=== PATIENT | male | born 1950 | race Two or more races ===

== ENCOUNTER 2023-01-02 08:24 | Outpatient (OUT) | payer MEDICARE, SELFPAY ==
--- NOTE | 2023-01-02 09:33 | CA_ITS ---
The 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1950 Requested By: FROY Order Number: [id number] Reading MD: SIDNEY MONTAGUE Interpretive Statements Monophasic doppler waveforms PVR waveforms with normal upstroke, amplitude and dicrotic notch Right: - no significant pressure gradient between cuff - GUTIERREZ abnromal Left: - significant pressure gradient between the calf and DP cuff - normal GUTIERREZ Impression: - elevated indices (B/L thigh, B/L calf, right DP) consistent with calcified, noncompressible arterial watkins, which may underestimate the degree of arterial disease present - results unreliable due to elevated indices - decreased left TBI, which is not influenced by arterial calcification, raises suspicion for severe hemodynamic impairment of the left lower extremity at rest - normal right TBI, which is not influenced by arterial calcification, is consistent with normal arterial evaluation without hemodynamic impairment at rest. - clinical correlation advised Electronically Signed On 01-08-2023 7:15:53 EDT by SIDNEY MONTAGUE
== END 2023-01-02 08:25 | disposition home or self-care (01) ==
LOC: CARD 08:27
PROVIDERS: PCP Family Medicine
DX: I73.9 Peripheral vascular disease, unspecified (principal)
CPT/HCPCS: 93923

== ENCOUNTER 2023-03-06 19:35 | Observation (INO) | payer MEDICARE, SELFPAY ==
[2023-03-06] VITALS (13 sets, daily range): BP systolic 118–147; BP diastolic 78–86; PULSE 80–95; RESP 14–27; TEMP 36.1–36.8; O2SAT 85–99; BMI 33.2; BMI 31.2
--- NOTE | 2023-03-06 19:56 | CT_ITS ---
The [address] [address] Patient Name: ARJUN MOSCOSO JR MRN: [id number] date: 1950 Sex: M Assigned Patient Location: ER Current Patient Location: ER Accession/Order Number: [id number] Exam Date: 03/06/2023 20:02 Report Date: 03/06/2023 20:29 At the request of: PIO DALY Procedure: CT stroke head/brain wo con EXAM: CT scan of the head without contrast. Dose reduction technique used: Automated exposure control and/or adjustment of the mA and/or kV according to patient size and/or use of iterative reconstruction technique. REASON FOR EXAM: Expressive aphasia COMPARISON: None FINDINGS: No intracranial hemorrhage, mass effect, midline shift, fractures or evidence of acute ischemic infarct. No hydrocephalus. Minimal generalized cerebral and cerebellar volume loss. Minimal small vessel gliosis. Paranasal sinuses and mastoid air cells are clear. Remainder unremarkable. CT/CT stroke head/brain wo con IMPRESSION: No acute intracranial abnormalities. Electronically authenticated by: KINJAL MCNEILL Date: 03/06/2023 20:29
--- NOTE | 2023-03-06 19:56 | ECG_ITS ---
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
--- NOTE | 2023-03-06 19:58 | ED.ALLEREA1 ---
HPI - Allergic Reaction General Chief complaint: Allergic Reaction Stated complaint: Allergic Reaction Time Seen by Provider: 03/06/23 19:43 Source: patient Mode of arrival: Wheelchair History of Present Illness HPI narrative: patient is a 72-year-old male who presents to the emergency department with concern for ALLERGIC reaction. Patient's provides the majority of the history. He was recently hospitalized at [facility] for osteomyelitis that was found inn his left foot. He was started on cefepime while in the hospital and was given cefepime for home as well. He was evaluated by infectious disease while in the hospital. He states while he was receiving this cefepime in the hospital, he developed mild urticaria that did not bother him and it was recommended that he continue the antibiotic if he was able to tolerate it. He states that the hives have gotten much worse today, he took two Benadryl earlier today. Patient's states approximately one hour ago the patient had trouble with his speech. The patient states he is having trouble expressing words. He has not had any lip swelling or tongue swelling. Patient's states his face appears swollen. Patient has not noted to have any garbled speech at time of evaluation. No unilateral weakness. Related Data Home Medications Medication Instructions Recorded Confirmed atorvastatin 40 mg tablet 40 mg PO QPM 03/06/23 03/06/23 baclofen 20 mg tablet 20 mg PO TID PRN pain 03/06/23 03/06/23 celecoxib 200 mg capsule 200 mg PO BID 03/06/23 03/06/23 clopidogrel 75 mg tablet 75 mg PO DAILY 03/06/23 03/06/23 duloxetine 60 mg capsule,delayed 60 mg PO DAILY 03/06/23 03/06/23 release gabapentin 800 mg tablet 800 mg PO TID 03/06/23 03/06/23 magnesium oxide 400 mg (241.3 mg 400 mg PO DAILY 03/06/23 03/06/23 magnesium) tablet metoprolol succinate 50 mg 50 mg PO DAILY 03/06/23 03/06/23 tablet,extended release 24 hr nifedipine 30 mg tablet,extended 30 mg PO DAILY 03/06/23 03/06/23 release 24 hr Allergies Allergy/AdvReac Type Severity Reaction Status Date / Time cefepime Allergy Severe Hives Verified 03/07/23 06:53 lisinopril Allergy Severe Verified 03/06/23 19:48 metformin Allergy Severe Verified 03/06/23 19:48 Review of Systems ROS Constitutional Denies: fever or chills Eyes Denies: change in vision Cardiovascular Denies: chest pain Respiratory Denies: shortness of breath or cough Gastrointestinal Denies: nausea or vomiting Musculoskeletal Denies: back pain Integumentary/Breast Reports: rash and itching Endocrine Denies: excessive urination [facility] Medical History (Updated 03/07/23 @ 16:48 by Tejas Bryant MD) Dyslipidemia ?E78.5 - Hyperlipidemia, unspecified (ICD-10) TIA (transient ischemic attack) ?G45.9 - Transient cerebral ischemic attack, unspecified (ICD-10) Urticaria ?L50.9 - Urticaria, unspecified (ICD-10) Exam Narrative Exam Narrative: Gen.: Awake, alert, in no distress Head: Normocephalic, atraumatic ENT: Moist mucous membranes; mild edema noted of the cheeks, no lip or tongue swelling noted. Airway widely open and patent. No garbled speech. Uvula midline. No lesions noted of the mouth Respiratory: No respiratory distress, lungs clear bilaterally; no wheezing or rhonchi Cardio: Regular rate and rhythm Gastrointestinal: Abdomen is soft, nondistended and nontender to palpation Extremities: Moves extremities equally, no injuries noted Psych: Normal mood and affect Neuro: No focal neuro deficit; patient answers all questions appropriately with no slurred speech or garbled speech. He is slow to answer some questions Skin: Warm, dry, intact; urticaria noted of the volar forearms, back of the neck with no open sores, drainage or red streaking. No petechiae or purpura Constitutional Vital Signs, click to edit/add: Last Vital Signs Temp 98.3 F 03/06/23 19:40 Pulse 95 H 03/06/23 19:40 Resp 16 03/06/23 19:40 BP 118/86 03/06/23 19:40 Pulse Ox 99 03/06/23 19:40 O2 Del Method Room Air 03/06/23 19:40 Course Course Hospital Course: See Short Stay Summary (H&P) for hospital course Vital Signs Vital signs: Vital Signs Temperature 98.3 F 03/06/23 19:40 Pulse Rate 95 H 03/06/23 19:40 Respiratory Rate 16 03/06/23 19:40 Blood Pressure 118/86 03/06/23 19:40 Pulse Oximetry 99 03/06/23 19:40 Oxygen Delivery Method Room Air 03/06/23 19:40 Temperature 98.3 F 03/06/23 19:40 Pulse Rate 95 H 03/06/23 19:40 Respiratory Rate 16 03/06/23 19:40 Blood Pressure 118/86 03/06/23 19:40 Pulse Oximetry 99 03/06/23 19:40 Oxygen Delivery Method Room Air 03/06/23 19:40 MDM - Allergic Reaction MDM Narrative Medical decision making narrative: on arrival to the Emergency Room, I discussed the case with Dr. Ramírez for infectious disease where the patient was previously hospitalized. He stated that he was already aware of the patient, he has already called in meropenem to be started tomorrow for the osteomyelitis in his left foot. He recommended no further antibiotic treatment from the Emergency Room this evening with meropenem to be started tomorrow through the patient's PICC line. patient was treated with IV fluids, Benadryl, Pepcid, Solu-Medrol. He had no deterioration of his neuro status and maintains a normal neuro exam in the Emergency Room. Patient was reevaluated by attending physician, CT of the brain is unremarkable and labs show initially minimally elevated troponin, repeat troponin is normal. I discussed the case with [facility] neurology, Dr. Stephenson for neurology/stroke team. He recommended admitting the patient for observation, MRI and teleneurology consult tomorrow. no indication for emergent transfer. Patient admitted to hospitalist, patient and his feel his speech symptoms are improving in the Emergency Room. We will admit for transient ischemic attack for MRI tomorrow, patient can be treated with meropenem while hospitalized and can continue meropenem at home. Medical Records Attestation: I reviewed the patient's medical records. Lab Data Attestation: I reviewed the patient's lab results. Imaging Data CT scan - head: Attestation: I have reviewed the pertinent imaging results. Radiologist's impression: Procedure: CT stroke head/brain wo con EXAM: CT scan of the head without contrast. Dose reduction technique used: Automated exposure control and/or adjustment of the mA and/or kV according to patient size and/or use of iterative reconstruction technique. REASON FOR EXAM: Expressive aphasia COMPARISON: None FINDINGS: No intracranial hemorrhage, mass effect, midline shift, fractures or evidence of acute ischemic infarct. No hydrocephalus. Minimal generalized cerebral and cerebellar volume loss. Minimal small vessel gliosis. Paranasal sinuses and mastoid air cells are clear. Remainder unremarkable. IMPRESSION: No acute intracranial abnormalities. Electronically authenticated by: KINJAL MCNEILL Date: 03/06/2023 20:29 ECG Data Attestation: I personally reviewed and interpreted this ECG as follows: (normal sinus rhythm at a rate of eighty-nine, no acute ST elevation or ectopy. EKG reviewed by attending physician) Discharge Plan Discharge Chief Complaint: Allergic Reaction Clinical Impression: TIA (transient ischemic attack), Urticaria, Allergic reaction Patient Disposition: Admitted as Observation Time of Disposition Decision: 22:23 Condition: Good Discharge Date/Time: 03/06/23 22:55
--- NOTE | 2023-03-06 20:00 | PC.NURSE ---
Pt presents to ER for an allergic reaction to an antibiotic he is receiving after a recent amputation of 2 toes Pt states his face and lips are swollen and he has a rash to the aysha of his neck, back, and lower extremities Pt has a picc line in the right arm
[2023-03-06] MEDS: 0.9 % SODIUM CHLORIDE 1,000 ML 999 ML IV (20:21)
[2023-03-06] MEDS: METHYLPREDNISOLONE SOD SUCC PF 125 MG/2 ML VIAL IVP (20:23)
[2023-03-06] MEDS: FAMOTIDINE/PF 20 MG/2 ML VIAL IV (20:23)
[2023-03-06] MEDS: DIPHENHYDRAMINE HCL 50 MG/ML (1ML) VIAL 25 MG IV (20:23)
[2023-03-06 20:37] LABS: Basophils Absolute Auto 0.1 10^3/uL (0.0-0.1); Basophils Percent Auto 0.4 % (0.2-2.0); Eosinophils Absolute Auto 0.3 10^3/uL (0.0-0.7); Eosinophils Percent Auto 2.2 % (0.9-7.0); Hematocrit 32.6 % (42.0-54.0); Hemoglobin 10.9 g/dL (14.0-18.0); Immature Granulocytes Abs Auto 0.08 10^3/uL (0.00-0.03); Immature Granulocytes Pct Auto 0.6 % (0.0-0.5); Lymphocytes Absolute Auto 2.3 10^3/uL (1.2-3.8); Lymphocytes Percent Auto 17.4 % (20.5-60.0); Mean Corpuscular HGB Conc 33.4 g/dL (29.9-35.2); Mean Corpuscular Hemoglobin 30.4 pg (25.9-34.0); Mean Corpuscular Volume 91.1 fL (80.0-94.0); Mean Platelet Volume 10.4 fL (9.5-13.5); Monocytes Absolute Auto 1.1 10^3/uL (0.3-0.8); Monocytes Percent Auto 8.5 % (1.7-12.0); Neutrophils Absolute Auto 9.2 10^3/uL (1.4-6.5); Neutrophils Percent Auto 70.9 % (43.0-75.0); Platelet Count 400 10^3/uL (150-450); Red Blood Count 3.58 10^6/uL (4.70-6.10); Red Cell Distribution Width 13.4 % (11.0-15.0)
[2023-03-06 20:53] LABS: Alanine Aminotransferase 19 U/L (16-63); Albumin Globulin Ratio 0.7; Albumin Level 2.9 g/dL (3.4-5.0); Alkaline Phosphatase 76 U/L (46-116); Anion Gap 11.3; Aspartate Amino Transferase 17 U/L (15-37); BUN Creatinine Ratio 16.7; Bilirubin Total 0.4 mg/dL (0.2-1.0); Calcium 8.2 mg/dL (8.5-10.1); Carbon Dioxide 25.7 mmol/L (21.0-32.0); Chloride 101 mmol/L (98-107); Estimated GFR (African America 47 (>=60); Estimated GFR (Non-African Ame 39 (>=60); Globulin 4.1 g/dL; Glucose 147 mg/dL (74-106); Sodium 134 mmol/L (136-145)
[2023-03-06 20:56] LABS: Troponin I High Sensitivity 78.7 pg/mL (4.0-76.1)
[2023-03-06 21:04] LABS: Prothrombin Time 10.6 sec (9.0-11.6)
[2023-03-06 21:50] LABS: Troponin I High Sensitivity 72.1 pg/mL (4.0-76.1)
[2023-03-06] MEDS: HEPARIN SODIUM (PORCINE) PF LOCK FLUSH 500 UNIT/5 ML SYRINGE IV (22:40)
[2023-03-07] VITALS (10 sets, daily range): BP systolic 148–164; BP diastolic 72–94; PULSE 76–98; RESP 12–20; TEMP 36.3–36.8; O2SAT 95–99; BMI 31.2
--- NOTE | 2023-03-07 00:10 | MR_ITS ---
The [place] [id number] Patient Name: ARJUN MOSCOSO JR MRN: [id number] date: 1950 Sex: M Assigned Patient Location: ICU Current Patient Location: ICU Accession/Order Number: [id number] Exam Date: 03/07/2023 07:40 Report Date: 03/07/2023 13:39 At the request of: FLORENTIN CHEN Procedure: MR head/brain wo con MRI BRAIN WITHOUT CONTRAST, 03/07/2003. HISTORY: Difficulty swallowing. Facial swelling. Possible stroke. Aphasia. COMPARISON: CT head, 03/06/2023. TECHNIQUE: Multiplanar, multisequence MRI imaging of the brain without contrast. FINDINGS: Paranasal sinuses are clear. Mastoid air cells clear. Nasopharynx normal. Manager Air spaces are normal. Extracranial soft tissue structures are unremarkable. Mild brain atrophy. No hydrocephalus. No subdural fluid collection. No mass effect. No shift of midline structures. Internal auditory canals and cerebellopontine angle cisternal spaces normal. Pituitary gland is normal in size. Mild chronic microvascular ischemic changes in the cerebral white matter. No diffusion restriction in the brain. No acute ischemic infarction. Small dural based mass along the falx between the frontal lobes is most consistent with a meningioma. This measures 1.0 x 1.8 cm in cross-section. This has hyperintense signal on FLAIR and some hyperintense signal on diffusion. No mass effect on the brain. No edema in the brain. No other masses. No hemorrhagic lesions. MR/MR head/brain wo con IMPRESSION: 1. No acute infarction. 2. Small mass along the falx in the midline between the frontal lobes measuring 1.0 x 1.8 cm is most likely a meningioma. There is no mass effect on the brain or vasogenic edema in the brain. 3. Mild brain atrophy and chronic microvascular ischemic changes. No hydrocephalus. Electronically authenticated by: DORCAS WELLINGTON Date: 03/07/2023 13:39
--- NOTE | 2023-03-07 00:16 | CA_ITS ---
Patient Name Site Name ARJUN MOSCOSO JR The [facility] Account No Medical Record Number Age Sex Date Time [id number] [facility]:[id number] M 03/07/2023 10:17 At the Request Of Royal Sister ECHOCARDIOGRAM REPORT PROCEDURE: CA ECHO DOPPLER COMPLETE INDICATIONS: TIA symptoms, hypertension, diabetes, acute kidney disease COMPARISON: None. DESCRIPTION: COMPLETE ECHOCARDIOGRAM Real-time transthoracic echocardiography with 2D, M-mode, spectral and color flow Doppler performed. QUALITY: Technical quality was good. LEFT VENTRICLE: Normal chamber size. Mild concentric left ventricular hypertrophy. Normal systolic function. LV EF: Normal left ventricular ejection fraction, (>55%). DIASTOLIC: Grade I diastolic dysfunction. ATRIAL SEPTUM: Agitated saline contrast does not reveal an intra-cardiac shunt. LEFT ATRIUM: Mild dilatation. RIGHT ATRIUM: Normal chamber size. RIGHT VENTRICLE: Normal chamber size. Normal right ventricular systolic function. TRICUSPID VALVE: Normal mobility and thickness. No stenosis with no regurgitation. MITRAL VALVE: Normal mobility and thickness. No evidence of mitral valve stenosis. Mild mitral annular calcification. No mitral regurgitation. AORTIC VALVE: Normal trileaflet appearance. Thickened aortic valve. Normal leaflet mobility. No evidence of aortic valve stenosis. Trivial aortic regurgitation. AORTIC ROOT: Normal diameter and appearance. PULMONIC VALVE: Not well visualized. No stenosis. No regurgitation. PERICARDIUM: No evidence of pericardial effusion. IVC: Collapses with inspirations. PLEURA: CONCLUSION: 1. Mild concentric left ventricular hypertrophy. Normal left ventricular systolic function. LVEF is 55 to 60%. 2. Normal right ventricular size and systolic function. 3. Mildly dilated left atrium. 4. No significant valvular dysfunction. 5. Agitated saline injection does not reveal an intracardiac shunt. Adult Echocardiography Procedure Report Left Ventricle LVEDD (3.7 - 5.6 cm): 5.60 cm LVESD (2.2 - 4.0 cm): 4.25 cm LVIVS thickness (0.6 - 1.2 cm): 1.06 cm LVPW thickness (0.5 - 1.0 cm): 1.26 cm e': 0.08 m/s E - e': 6.19 LVOT Max Gradient: 3.19 mm[Hg] LVOT Area (cm2): 0.89 m/s Peak Velocity (LVOT): 0.89 m/s LVOT Diameter 2.36 cm Left Atrium LA Volume Index (2D A2C): 42.90 ml/m2 Left Atrium Systolic Dimension: 3.83 cm Mitral Valve MV E to A Ratio: 0.55 Mitral Valve A-Wave Peak Velocity: 0.90 m/s Mitral Valve E-Wave Peak Velocity: 0.50 m/s Right Ventricle Aorta AO Root Diam: 3.62 cm Aortic Valve AoV Area (Peak David): 2.80 cm2, 2.74 cm2 Peak Velocity(Antegrade Flow): 1.43 m/s, 1.36 m/s Peak Gradient(Antegrade Flow): 8.15 mm[Hg], 7.37 mm[Hg] Mean Velocity(Antegrade Flow): 0.99 m/s, 0.96 m/s Mean Gradient(Antegrade Flow): 4.42 mm[Hg], 4.22 mm[Hg] Velocity Time Integral: 32.81 cm, 32.08 cm Tricuspid Valve Pulmonic Valve Peak Velocity: 0.98 m/s Peak Gradient: 3.75 mm[Hg], 3.86 mm[Hg] Right Atrium Right Atrium Systolic Pressure: 33.51 ml, 33.51 ml Dictated by: Alec Blackman M.D. on 03/07/2023 at 16:45 Approved by: Alec Blackman M.D. on 03/07/2023 at 16:50
--- NOTE | 2023-03-07 00:23 | P.PN_ITS ---
Progress Note: Subjective Subjective Interval history: CC: Slurred speech HPI: This is a very pleasant 72 years old male who presents with above complaints. Patient is accompanied by his . According to her patient recently started on IV cefepime for treatment of diabetic foot infection. While on antibiotics patient developed urticaria type of rash. He was advised to take Benadryl and try to see if rash disappeared. In spite of Benadryl patient's condition deteriorated and he developed some slurred speech and according to the also some swelling of the face. On evaluation in the emergency room stroke code was activated. Patient was evaluated by neurologist who recommended admission for further neurological work-up. Meantime patient received treatment for allergic reaction including Benadryl, Pepcid, Solu-Medrol and doing better. Exam Narrative Exam Narrative: ROS: 1.General: no fever, chills, not in distress 2.HEENT: no AVELAR, no blurry vision, no swallow problems, no nasal congestion, no sore throat 3.Pulmonary: no cough, SOB, wheezes 4.CVS: no CP, no palpitations, no LLOYD, no SOB, no intermittent claudication 5.GI: no nausea, vomiting or diarrhea, no abdominal pain, no constipation, no hematemesis or hematochezia 6.: no renal colic, no hematuria, urinary frequency or urgency 7.Extremities: no edema 8.Neurological: See above 9.Musculosceletal: no joint pains, no joint swelling, no back pain 10.Dermatological: no skin rashes, no lesions, no pruritus 11.Hematological: no bleeding, no hx/o clots 12.Endocrinological: no heat/cold intolerance, no hx/o diabetes 13.Psychiatric: no suicidal or homicidal thoughts Physical Exam: Not in distress, pleasant, lucid, cooperative, morbidly obese Head - atraumatic, eyes - pupils equal, round, reactive to light, extra ocular movement intact, MMM Neck - supple, thyroid not enlarged, LN not palpated Lungs - clear to auscultation, no dullness on percussion CVS - heart sounds S1, S2, no additional murmurs gallop, regular rate and rhythm Gastrointestinal?abdomen is soft, non-tender, non-distended, no organomegaly, positive bowel sounds Extremities no clubbing, cyanosis or edema Neurological?cranial nerve II?XII grossly intact, no meningeal signs, no cerebellar signs, no sensory deficit Musculoskeletal - joints, no effusions, ROM preserved Dermatological - the skin dry, warm, wound VAC in place in the lower extremity Psychiatric?patient is AAO X3, patient has normal affect Constitutional Vital Signs, click to edit/add: Last Vital Signs Temp 98.0 F 03/06/23 23:10 Pulse 80 03/06/23 23:10 Resp 16 03/06/23 23:10 BP 147/78 H 03/06/23 23:10 Pulse Ox 99 03/06/23 23:10 O2 Del Method Room Air 03/06/23 23:10 Progress Note: Objective Labs Labs: Short CBC 03/06/23 Range/Units 20:15 WBC 13.0 H (4.0-11.0) 10^3/uL Hgb 10.9 L (14.0-18.0) g/dL Hct 32.6 L (42.0-54.0) % Plt Count 400 (150-450) 10^3/uL BMP 03/06/23 20:15 Sodium 134 L Potassium 4.0 Chloride 101 Carbon Dioxide 25.7 BUN 29.0 H Creatinine 1.74 H Glucose 147 H Calcium 8.2 L Liver Function 03/06/23 Range/Units 20:15 Total Bilirubin 0.4 (0.2-1.0) mg/dL AST 17 (15-37) U/L ALT 19 (16-63) U/L Alkaline Phosphatase 76 (46-116) U/L Albumin 2.9 L (3.4-5.0) g/dL Progress Note: A&P Assessment and Plan (1) TIA (transient ischemic attack): Assessment and Plan: CVA - patient admitted with acute neurological deficit - As per evaluation in ER patient did not qualify for a tPa treatment - Admit to telemetry - Frequent neuro-checks - Will obtain MRI of the brain and MRA of the Head and Neck - Will obtain an ECHO with bubbles - F/U with Neurologist for further recommendations Secondary prevention ? will make sure patient is on Full dose of EC ASA and at least moderate potency dose of Atorvastatin unless contraindicated Tertiary prevention ? fall/aspiration precautions are in place - DVT prophylaxis (2) Urticaria: Assessment and Plan: Doing better after administration of medications in the emergency room. Phone consultation obtained with infectious disease specialist who recommended him switch to cefepime or meropenem Continue with wound VAC (3) Diabetes: Assessment and Plan: DM- continue with ADA diet - hold off oral hypoglycemic agents while in the hospital to avoid hypoglycemic episodes - frequent accuchecks (TID AC + HS) - will provide coverage with long acting insulin as well as short acting insulin with meals - adjust as needed - hypoglycemia protocol in place (4) Diabetic foot: Assessment and Plan: See above (5) Hypertension: Assessment and Plan: Permissive hypertension going to be allowed. Very fine continue home medications (6) Dyslipidemia: Assessment and Plan: Patient started on moderate potency dose of atorvastatin. Follow-up results of the lipid profile Plan END: As the provider for the telehealth service, I attest that I introduced myself to the patient, provided my credentials, disclosed by location and determined that based on a review of the patient's chart and discussion with members of the patient's treatment team, telemedicine via real-time, 2 way, and interactive audio and video platform is an appropriate and effective means of providing the service. ?The patient and I mutually agree this visit is appropriate for telemedicine. ?The virtual encounter was taken place from? [place], [place]. ?The encounter took approximately 35 minutes. ?The nurse was present during the entire time and I was able to move the stethoscope in appropriate directions. ?The patient was evaluated at the Hospital ? Portions of this note may be dictated using [employer] voice recognition software. Variances in spelling and vocabulary are possible and unintentional. Not all err ors may be caught and/or corrected. Please notify the author if any discrepancies are noted and/or if the meaning of any statement is unclear.? ? Patient verbally consented for treatment via video visit with patient currently located at the [facility] and provider located in [place]. Telemedicine Attestation Telemedicine Attestation I conducted this encounter from [[place]] via secure live, [id number] video conference with the patient, located at [facility] with [TIA]. Prior to the interview, the risks and benefits of telemedicine were discussed with the patient and verbal consent was obtained.
[2023-03-07] MEDS: ASPIRIN 81 MG TAB.CHEW PO ×2 (02:46→09:56)
--- NOTE | 2023-03-07 03:29 | PC.NURSE ---
Patient has dressing to left foot S/P toe amputation and has Wound Vac dressing in place. Unable to fully detect patient's level of strength in this extremity due to size and location on dressing.
[2023-03-07 05:08] LABS: Basophils Percent Auto 0.1 % (0.2-2.0); Hematocrit 31.3 % (42.0-54.0); Hemoglobin 10.3 g/dL (14.0-18.0); Immature Granulocytes Abs Auto 0.08 10^3/uL (0.00-0.03); Immature Granulocytes Pct Auto 0.8 % (0.0-0.5); Lymphocytes Absolute Auto 0.8 10^3/uL (1.2-3.8); Lymphocytes Percent Auto 8.5 % (20.5-60.0); Mean Corpuscular HGB Conc 32.9 g/dL (29.9-35.2); Mean Corpuscular Hemoglobin 29.6 pg (25.9-34.0); Mean Corpuscular Volume 89.9 fL (80.0-94.0); Mean Platelet Volume 10.5 fL (9.5-13.5); Monocytes Absolute Auto 0.1 10^3/uL (0.3-0.8); Monocytes Percent Auto 0.7 % (1.7-12.0); Neutrophils Absolute Auto 8.5 10^3/uL (1.4-6.5); Neutrophils Percent Auto 89.9 % (43.0-75.0); Platelet Count 369 10^3/uL (150-450); Red Blood Count 3.48 10^6/uL (4.70-6.10); Red Cell Distribution Width 13.2 % (11.0-15.0); White Blood Count 9.5 10^3/uL (4.0-11.0)
[2023-03-07 05:29] LABS: Anion Gap 10.9; BUN Creatinine Ratio 18.1; Calcium 7.9 mg/dL (8.5-10.1); Carbon Dioxide 24.5 mmol/L (21.0-32.0); Chloride 102 mmol/L (98-107); Estimated GFR (African America 56 (>=60); Estimated GFR (Non-African Ame 46 (>=60); Glucose 263 mg/dL (74-106); Potassium 4.4 mmol/L (3.5-5.1); Sodium 133 mmol/L (136-145)
[2023-03-07] MEDS: GABAPENTIN 400 MG CAPSULE 800 MG PO ×2 (06:30→15:30)
--- NOTE | 2023-03-07 07:40 | MR_ITS ---
The [address] [address] Patient Name: ARJUN MOSCOSO JR MRN: [id number] date: 1950 Sex: M Assigned Patient Location: ICU Current Patient Location: ICU Accession/Order Number: [id number] Exam Date: 03/07/2023 07:40 Report Date: 03/07/2023 13:39 At the request of: FLORENTIN CHEN Procedure: MR angio neck wo/w con MRA neck with and without contrast, 03/07/2023. HISTORY: Expressive aphasia. COMPARISON: None. TECHNIQUE: Postcontrast 3-D axial MRA images obtained through the neck. Axial [id number] MRA images obtained. Multiple reconstructed MIP images obtained. FINDINGS: There is some motion artifact. Common carotid arteries are normal in caliber. There is a 50% stenosis in the proximal left ICA. There is a 50% stenosis in the proximal right ICA. Vertebral arteries are patent. MR/MR angio neck wo/w con IMPRESSION: 1. There is 50% stenosis in the proximal internal carotid arteries bilaterally. The mid and distal segments of the internal carotid arteries are normal in caliber. 2. Vertebral arteries are patent. Electronically authenticated by: DORCAS WELLINGTON Date: 03/07/2023 13:39
--- NOTE | 2023-03-07 08:22 | CM.NOTE ---
Advanced Directive booklet given to family, passed on to SW and will f/u with pt if any questions.
[2023-03-07 08:51] LABS: Cholesterol 102 mg/dL (<=200); HDL Cholesterol 34 mg/dL (40-60); Triglycerides 90 mg/dL (<=150)
--- NOTE | 2023-03-07 09:47 | SWNOTE1 ---
SW received message from case management and pt is current with [facility].
[2023-03-07] MEDS: INSULIN ASPART 300 UNIT/3 ML PEN SUBQ ×2 (09:53→11:49)
[2023-03-07] MEDS: METOPROLOL SUCCINATE 50 MG TAB.ER.24H PO (09:57)
[2023-03-07] MEDS: CLOPIDOGREL BISULFATE 75 MG TABLET PO (09:57)
[2023-03-07] MEDS: MAGNESIUM OXIDE 400 MG TABLET PO (09:57)
[2023-03-07] MEDS: DULOXETINE HCL 60 MG CAPSULE.DR PO (09:57)
[2023-03-07] MEDS: NIFEdipine 30 MG TAB.ER.24 PO (09:57)
[2023-03-07 10:01] LABS: Glucometer 274 mg/dL (74-106)
--- NOTE | 2023-03-07 10:42 | P.HP_ITS ---
Patient seen and examined, agree with assessment below. Admitted after allergic reaction to antibiotic and facial swelling. Developed speech abnormality and concerned of CVA. Admitted for work up. MRI brain negative for stroke and showed meningioma. Allergic reaction resolved with medication. Tele-neurology requested outpatient MRI with and without contrast. ID had recommended m eropenem and given invanz and tolerated. Wound vac changed in hospital. Discharged home and f/u with ID and podiatry. Diagnosis: 1. Allergic reaction due to antibiotic 2. Speech abnormality 3. SONYA 4. Osteomyelitis left foot 5. Left diabetic foot ulcer 6. DM2 with hyperglycemia 7. HTN 8. DM2 with polyneuropathy 9. PVD H&P: HPI History of Present Illness Chief complaint: Allergic Reaction/Expressive aphasia Narrative: Date/Time of exam: 03/07/23 1000 SHORT STAY SUMMARY This is a 72-year-old male patient with a complicated past medical history as outlined below including recent admission at [facility] due to osteomyelitis of the left foot and status post fifth metatarsal amputation during that stay. The patient has been receiving IV cefepime as an outpatient and a wound VAC has been placed on the left foot. The patient experienced a mild rash from the cefepime but he was instructed to use Benadryl to continue taking the medication unless his response worsened. Yesterday he began developing severe hives body wide including to the face and mouth. His infectio us disease provider discontinued the cefepime and was switching him to Merrem, however the patient's family began to notice that his speech became slurred, delayed, and at times nonsensical. They also noted that he was zoning out and not following conversations appropriately. They presented to the ED for further work-up as they were concerned for stroke. Work-up in the ED was negative for acute hemorrhagic CVA per CT of the brain. The patient was treated for his drug reaction with IV steroids with significant improvement in his symptoms. He was also noted to have SONYA on chemistry labs. Telestroke was consulted in the ED and they recommended observation admission for further neuro work-up. He was excepted by the hospitalist service in observation for these complaints. At the time of my exam the patient is resting comfortably in bed visiting with family. He reports that his allergic reaction symptoms have completely resolved as have his suspected stroke symptoms. He has no evidence of dysarthria or expressive aphasia and no focal deficits noted on exam. We will initiate carbapenem medication per the outpatient ID provider recommendations and monitor the patient for adverse reactions. An MRI of the brain and 2D echo will be obtained for further eval of possible CVA. We will start IV fluids for his SONYA, but suspect this may reflect a drug reaction to the cefepime as well. If the remaining neuro work-up is negative the patient will likely be discharged later today as his symptoms have all resolved. ADDENDUM 1500: An MRI of the brain revealed a small mass along the falx in the midline between the frontal lobes measuring 1 x 1.8 cm and most likely represents a meningioma. No mass effect or vasogenic edema in the brain was noted. There was no evidence of acute infarction. An MRA of the Neck revealed 50% stenosis in the proximal internal carotid arteries bilaterally with normal mid and distal segments of the internal carotid arteries. Vertebral arteries were unremarkable. A 2D echo was obtained but cardiology interpretation is still pending. A follow-up consult with telestroke was performed at the bedside. Tele-Stroke did not have any further recommendations but they would like the pt to obtain an outpatient follow up MRI next week to ensure that the suspected meningioma remains unchanged. The pt tolerated IVPB carbapenem well. As his symptoms remain completely resolved he is being discharged home in stable condition. He will follow up with his PCP within 1 week for further monitoring of his renal function. He will obtain an MRI of the brain on 03/12/23 w/ results to be interpreted by the tele-stroke providers. Review of Systems ROS Status of ROS 10 or more systems reviewed and unremarkable except as noted in history and below [facility] Medical History (Updated 03/07/23 @ 10:00 by Tejas Bryant MD) Dyslipidemia ?E78.5 - Hyperlipidemia, unspecified (ICD-10) Hypertension ?I10 - Essential (primary) hypertension (ICD-10) Osteomyelitis of left foot ?M86.9 - Osteomyelitis, unspecified (ICD-10) Type 2 diabetes mellitus with diabetic polyneuropathy ?E11.42 - Type 2 diabetes mellitus with diabetic polyneuropathy (ICD-10) Type 2 diabetes mellitus with hyperglycemia ?E11.65 - Type 2 diabetes mellitus with hyperglycemia (ICD-10) Ulcer of left foot due to type 2 diabetes mellitus ?E11.621 - Type 2 diabetes mellitus with foot ulcer (ICD-10) ?L97.529 - Non-pressure chronic ulcer of other part of left foot with unspecified severity (ICD-10) Urticaria ?L50.9 - Urticaria, unspecified (ICD-10) Meds Home Medications and Allergies Home Medications Medication Instructions Recorded Confirmed Type atorvastatin 40 mg tablet 40 mg PO QPM 03/06/23 03/06/23 History baclofen 20 mg tablet 20 mg PO TID PRN pain 03/06/23 03/06/23 History celecoxib 200 mg capsule 200 mg PO BID 03/06/23 03/06/23 History clopidogrel 75 mg tablet 75 mg PO DAILY 03/06/23 03/06/23 History duloxetine 60 mg capsule,delayed 60 mg PO DAILY 03/06/23 03/06/23 History release gabapentin 800 mg tablet 800 mg PO TID 03/06/23 03/06/23 History magnesium oxide 400 mg (241.3 mg 400 mg PO DAILY 03/06/23 03/06/23 History magnesium) tablet metoprolol succinate 50 mg 50 mg PO DAILY 03/06/23 03/06/23 History tablet,extended release 24 hr nifedipine 30 mg tablet,extended 30 mg PO DAILY 03/06/23 03/06/23 History release 24 hr Allergies Allergy/AdvReac Type Severity Reaction Status Date / Time cefepime Allergy Severe Hives Verified 03/07/23 06:53 lisinopril Allergy Severe Verified 03/06/23 19:48 metformin Allergy Severe Verified 03/06/23 19:48 Exam Constitutional Vital Signs, click to edit/add: Last Vital Signs Temp 98.2 F 03/07/23 07:00 Pulse 87 03/07/23 08:00 Resp 16 03/07/23 08:00 BP 163/94 H 03/07/23 09:57 Pulse Ox 96 03/07/23 07:00 O2 Del Method Room Air 03/07/23 07:00 Common normals: no apparent distress, oriented x3, alert and well nourished General appearance: cooperative Orientation/consciousness: Yes awake [facility] Common normals: normocephalic, head/scalp atraumatic, hearing grossly normal bilaterally, external ears normal, external nose normal and moist oral mucous membranes Head and scalp: normocephalic and atraumatic Face and sinus: normal facial exam Nose: external nose normal External ear: external ears normal Eye Common normals: PERRL, EOMs intact bilaterally, conjunctivae normal and no scleral icterus General eye: normal appearance of both eyes Alignment: alignment normal Eyelid: eyelids normal Conjunctiva: conjunctiva(e) normal Pupil: PERRL Neck & C-Spine Common normals: full ROM, supple and no JVD Chest Common normals: inspection of chest normal Chest: symmetrical chest wall rise Respiratory Common normals: normal respiratory effort, no retractions, no use of accessory muscles and clear to auscultation bilaterally Effort & inspection: able to speak in complete sentences Auscultation: clear to auscultation bilaterally Cardio Common normals: no JVD, regular rate, regular rhythm, S1 normal heart sound, S2 normal heart sound, no gallops, no clicks, no murmurs and no rub Rate: regular rate Rhythm: regular rhythm Heart sounds: S1 normal and S2 normal Peripheral pulses: other Other: L foot dorsalis pedis pulse 1+, all other extremities 2+ GI Common normals: Normal to inspection, nondistended, normoactive bowel sounds present, soft to palpation, non-tender, no hepatosplenomegaly, no masses and no bruits Palpation: soft and no hepatosplenomegaly Bladder/kidney exam: bladder normal to palpation Extremity Common normals: normal capillary refill and no pedal edema General: normal exam except as noted; no clubbing and no cyanosis Left lower extremity: foot and digits Left foot and digits: other (S/p 5th metatarsal amp 1 week ago. Wound vac in place w/ compression wrap ) Neuro Cookie Coma Scale: GCS not evaluated Common normals: oriented x3, CN's II-XII intact bilaterally, moves all extremities, no focal motor deficits and no sensory deficits noted Sensorium/orientation: awake and alert Speech: speech normal Motor exam: strength 5/5 throughout Psych Common normals: mental status grossly normal, thought process normal, affect normal and activity/motor behavior normal Thought process: normal thought process Results Labs Labs: Short CBC 03/06/23 03/07/23 Range/Units 20:15 04:47 WBC 13.0 H 9.5 (4.0-11.0) 10^3/uL Hgb 10.9 L 10.3 L (14.0-18.0) g/dL Hct 32.6 L 31.3 L (42.0-54.0) % Plt Count 400 369 (150-450) 10^3/uL BMP 03/06/23 03/07/23 20:15 04:47 Sodium 134 L 133 L Potassium 4.0 4.4 Chloride 101 102 Carbon Dioxide 25.7 24.5 BUN 29.0 H 27.0 H Creatinine 1.74 H 1.49 H Glucose 147 H 263 H Calcium 8.2 L 7.9 L Liver Function 03/06/23 Range/Units 20:15 Total Bilirubin 0.4 (0.2-1.0) mg/dL AST 17 (15-37) U/L ALT 19 (16-63) U/L Alkaline Phosphatase 76 (46-116) U/L Albumin 2.9 L (3.4-5.0) g/dL Pulse Oximetry Attestation: I have reviewed the pertinent pulse oximetry results. Assessment and Plan Assessment and Plan (1) TIA (transient ischemic attack): Assessment and Plan: ACUTE * Adm obs * Symptoms have completely resolved * Neuro work up * MRI brain * MRA head/neck * 2D Echo * c/s tele- stroke service - we appreciate their assistance with this pt's care * Pt already on DAPT and statin - continue (2) Allergic reaction due to antibacterial drug: Assessment and Plan: ACUTE * Cefipime d/c'd by ID * Merrem prescribed by ID per home health * Ertapenem will be given during hospital stay per formulary availability * Monitor for adverse response * Hives completely resolved after steroids and benadryl in the ED (3) SONYA (acute kidney injury): Assessment and Plan: ACUTE * Unclear etiology but we suspect adverse effect of IVPB cefepime * LR at 125/hr to flush kidneys * Medications reviewed for renal toxicity * Follow up closely w/ PCP for monitoring (4) Osteomyelitis of left foot: Assessment and Plan: CHRONIC * s/p 5th metatarsal amputation and wound vac placement * defer to OP ID management via home health as previously ordered (5) Type 2 diabetes mellitus with hyperglycemia: Assessment and Plan: CHRONIC * Continue home antiglycemic medications (6) Hypertension: Assessment and Plan: CHRONIC * Continue home Toprol XL & nifedipine (7) Dyslipidemia: Assessment and Plan: CHRONIC * Continue home statin
--- NOTE | 2023-03-07 11:19 | CM.NOTE ---
Rounds made with Dr. Bryant, consulted wound for vac change today prior to discharge. MRI completed awaiting cardiac echo to be completed.
--- NOTE | 2023-03-07 11:34 | SWNOTE1 ---
MILES spoke with [facility] and they were asking about antibiotic. MILES let home health speak with case management to update them in regards to antibiotic. Our wound are did change his wound vac. SW to send over discharge information.
[2023-03-07] MEDS: ERTAPENEM SODIUM 1 GM in 0.9 % SODIUM CHLORIDE 50 ML IV (11:46)
--- NOTE | 2023-03-07 11:50 | W.PM.WC ---
Wound Consult Note Assessment and Plan (1) TIA (transient ischemic attack): (2) Urticaria: (3) Diabetes: (4) Diabetic foot: Reason for Consult: Left foot diabetic ulcers Assessment and Plan: Patient seen today for assistance with wound VAC dressing change and treatment of diabetic ulcers to left foot. Patient reports he had left 5th partial ray resection with Dr. Chapman about 1 weeks ago. He was on IV antibiotics and developed a rash. Patient has stable eschar to left hallux, left distal great toe and left second dorsal toe as well. These areas were painted with betadine and covered with gauze/kerlix. Open wound to left lateral foot with 90% granular tissue, intact sutures noted to distally towards base of 4th toe however this area is draining and slightly macerated. Patient did just return from MRI and the VAC was without suction for about 1 hour, so this could be the reason it is slightly macerated. Overall measurements for the left lateral foot are 6.8cmx4.8cmx0.2cm. No structures noted, however, the bone is very close but does have some tissue covering. Adaptic was placed over sutures, then black foam over top adaptic and to wound bed. Seal achieved and kept at 125mmHg suction. Betadine and gauze over stable eschar and ABD pad over VAC dressing. Loose FAUSTO wrap over top. Will check on patient if still inpatient on Friday. Patient states [facility] is managing his VAC at home. Updated Dr. Bryant on patient's POC. (5) Hypertension: (6) Dyslipidemia: Plan See plan in diabetic foot. Call [phone] with any questions or concerns.
[2023-03-07 12:15] LABS: Glucometer 191 mg/dL (74-106)
--- NOTE | 2023-03-07 14:49 | CM.NOTE ---
Jessika from pharmacy called for update regarding medication at discharge. Dr. Ramírez had ordered Meropenem for HH to administer. Will call her back after pt receives antibiotic dose and regarding plan of discharge.
--- NOTE | 2023-03-07 14:53 | CM.NOTE ---
Called Jessika back to let her know, pt will continue on home Meropenem. Jessika states medication has been delivered to pt's home and we will also update [facility].
--- NOTE | 2023-03-07 14:55 | CM.NOTE ---
Medicare Outpatient Observation Notice discussed with pt, pt verbalizes understanding and signs paper. Original given to pt and copy placed on pt's chart.
--- NOTE | 2023-03-07 15:16 | P.DS_ITS ---
Patient seen and examined, agree with assessment below. Admitted after allergic reaction to antibiotic and facial swelling. Developed speech abnormality and concerned of CVA. Admitted for work up. MRI brain negative for stroke and showed meningioma. Allergic reaction resolved with medication. Tele-neurology requested outpatient MRI with and without contrast. ID had recommended m eropenem and given invanz and tolerated. Wound vac changed in hospital. Discharged home and f/u with ID and podiatry. Diagnosis: 1. Allergic reaction due to antibiotic 2. Speech abnormality 3. SONYA 4. Osteomyelitis left foot 5. Left diabetic foot ulcer 6. DM2 with hyperglycemia 7. HTN 8. DM2 with polyneuropathy 9. PVD DS: Providers Provider Date of admission: 03/06/23 23:01 Primary care physician: Tejas Bryant MD Admitting clinician: Carlie Marcus Attending physician on admission: Tejas Bryant Consults: 03/06/23 Consult to Dietitian Routine Reason For Exam: weight loss Reason for consultation: loss of appetite and weight loss 03/07/23 08:37 Consult to TeleNeurology Routine Reason for consultation: TIA Has provider been notified: Yes 03/07/23 09:57 Consult to Wound Care Routine Consulting Provider: Octavio Baxter Reason for consultation: Wounc vac Attending physician on discharge: Tejas Bryant Discharging clinician: Carlie Marcus Anticipated date of discharge: 03/07/23 DS: Diagnosis Discharge Diagnosis (1) TIA (transient ischemic attack): (2) Allergic reaction due to antibacterial drug: (3) SONYA (acute kidney injury): (4) Osteomyelitis of left foot: (5) Type 2 diabetes mellitus with hyperglycemia: (6) Hypertension: (7) Dyslipidemia: DS: Summary Hospital Course Hospital Course: See Short Stay Summary (H&P) for hospital course Status at Discharge Overall status at discharge: patient is back to baseline Time Spent with Patient Time attestation: Total time spent providing and/or coordinating discharge services: Time spent: greater than 30 minutes Exam Narrative Exam Narrative: See Short Stay Summary (H&P) for physical exam Constitutional Vital Signs, click to edit/add: Last Vital Signs Temp 97.4 F L 03/07/23 15:00 Pulse 89 03/07/23 15:00 Resp 15 03/07/23 15:00 BP 163/78 H 03/07/23 15:00 Pulse Ox 95 03/07/23 15:00 O2 Del Method Room Air 03/07/23 15:00 DS: Data Data Completed and Pending Completed studies during hospitalization: CT Brain MRI Brain MRA Neck Labs on day of discharge: Labs from last 24 hours 03/07/23 03/07/23 03/07/23 11:47 09:56 04:47 WBC 9.5 RBC 3.48 L Hgb 10.3 L Hct 31.3 L MCV 89.9 MCH 29.6 MCHC 32.9 RDW 13.2 Plt Count 369 MPV 10.5 Neut % (Auto) 89.9 H Lymph % (Auto) 8.5 L [place] % (Auto) 0.7 L Eos % (Auto) 0.0 L Baso % (Auto) 0.1 L Neut # (Auto) 8.5 H Lymph # (Auto) 0.8 L [place] # (Auto) 0.1 L Eos # (Auto) 0.0 Baso # (Auto) 0.0 Abs Immat Gran (auto) 0.08 H Imm/Tot Granulo (auto) 0.8 H PT INR Sodium 133 L Potassium 4.4 Chloride 102 Carbon Dioxide 24.5 Anion Gap 10.9 BUN 27.0 H Creatinine 1.49 H Est GFR ( Amer) 56 L Est GFR (Non-Af Amer) 46 L BUN/Creatinine Ratio 18.1 Glucose 263 H Calcium 7.9 L Total Bilirubin AST ALT Alkaline Phosphatase Troponin I High Sens Total Protein Albumin Globulin Albumin/Globulin Ratio Triglycerides 90 Cholesterol 102 LDL Cholesterol, Calc 50.0 VLDL Cholesterol 18.0 HDL Cholesterol 34 L Cholesterol/HDL Ratio 3.0 POC Glucose 191 H 274 H 03/06/23 03/06/23 21:13 20:15 WBC 13.0 H RBC 3.58 L Hgb 10.9 L Hct 32.6 L MCV 91.1 MCH 30.4 MCHC 33.4 RDW 13.4 Plt Count 400 MPV 10.4 Neut % (Auto) 70.9 Lymph % (Auto) 17.4 L [place] % (Auto) 8.5 Eos % (Auto) 2.2 Baso % (Auto) 0.4 Neut # (Auto) 9.2 H Lymph # (Auto) 2.3 [place] # (Auto) 1.1 H Eos # (Auto) 0.3 Baso # (Auto) 0.1 Abs Immat Gran (auto) 0.08 H Imm/Tot Granulo (auto) 0.6 H PT 10.6 INR 1.00 Sodium 134 L Potassium 4.0 Chloride 101 Carbon Dioxide 25.7 Anion Gap 11.3 BUN 29.0 H Creatinine 1.74 H Est GFR ( Amer) 47 L Est GFR (Non-Af Amer) 39 L BUN/Creatinine Ratio 16.7 Glucose 147 H Calcium 8.2 L Total Bilirubin 0.4 AST 17 ALT 19 Alkaline Phosphatase 76 Troponin I High Sens 72.1 78.7 H* Total Protein 7.0 Albumin 2.9 L Globulin 4.1 Albumin/Globulin Ratio 0.7 Triglycerides Cholesterol LDL Cholesterol, Calc VLDL Cholesterol HDL Cholesterol Cholesterol/HDL Ratio POC Glucose Discharge Plan Discharge Disposition: Home Health Service Condition: Good Discharge Medications: Continued atorvastatin 40 mg tablet 40 mg PO QPM baclofen 20 mg tablet 20 mg PO TID PRN (Reason: pain) celecoxib 200 mg capsule 200 mg PO BID clopidogrel 75 mg tablet 75 mg PO DAILY duloxetine 60 mg capsule,delayed release(DR/EC) 60 mg PO DAILY gabapentin 800 mg tablet 800 mg PO TID magnesium oxide 400 mg (241.3 mg magnesium) tablet 400 mg PO DAILY metoprolol succinate 50 mg tablet extended release 24 hr 50 mg PO DAILY nifedipine 30 mg tablet extended release 24hr 30 mg PO DAILY Activity: increase activity as tolerated and resume usual activities as tolerated Diet: advance to your usual diet Diet Detail: regular Print Language: Iranian Patient Instructions: Anaphylaxis (DC), Magnetic Resonance Imaging (DC) Activity Restrictions/Additional Instructions: - Obtain MRI brain (order attached) on 03/12/23 and follow up with the Tele- stroke provider Forms: Portal Instructions Follow Up Appointments: follow up with Dr. Bryant in 7 to 10 days following discharge
--- NOTE | 2023-03-07 15:23 | SWNOTE1 ---
Discharhe paperwork sent to [facility].
--- NOTE | 2023-03-10 12:18 | CM.DCFOLLOWU ---
Person spoke with: Patient How are you feeling? I am feeling good right now How is your pain? none right now Did you understand your discharge instructions? yes Do you have any questions about your discharge instructions? no Were you given any prescriptions at discharge? none listed Were you able to get your prescriptions filled? n/a Do you understand how to take your medications as ordered? yes Do you have any questions about your follow up appointment and do you plan to keep your follow up appointment? Patient is reminded importance of scheduling follow up appointment and he voiced he will make sure that gets done. Is there anything else that you would like to discuss? No Questions/Comments/Concerns/Other: The home health nurse was there with the patient, so the patient was in a mtz to get off phone but did understand importance of getting d/c follow up appointment PATIENCE with Dr. Byrant. Pt. denies any other questions.
== END 2023-03-07 15:41 | disposition home health service (06) ==
LOC: ER 22:23 → ICU 23:01
PROVIDERS: Physician Assistant; Admitting Provider Internal Medicine; Emergency Provider Internal Medicine; PCP Family Medicine; Visit Provider Nurse Practitioner
DX: L50.0 Allergic urticaria (principal); N17.9 Acute kidney failure, unspecified; E11.69 Type 2 diabetes mellitus with other specified complication; M86.672 Other chronic osteomyelitis, left ankle and foot; E11.621 Type 2 diabetes mellitus with foot ulcer; L97.529 Non-pressure chronic ulcer of other part of left foot with unspecified severity; E11.65 Type 2 diabetes mellitus with hyperglycemia; I10 Essential (primary) hypertension; E11.42 Type 2 diabetes mellitus with diabetic polyneuropathy; G45.9 Transient cerebral ischemic attack, unspecified; E11.51 Type 2 diabetes mellitus with diabetic peripheral angiopathy without gangrene; R47.81 Slurred speech; E78.5 Hyperlipidemia, unspecified; T36.1X5A Adverse effect of cephalosporins and other beta-lactam antibiotics, initial encounter; Z79.899 Other long term (current) drug therapy; R63.4 Abnormal weight loss; Z68.31 Body mass index [BMI] 31.0-31.9, adult; E66.9 Obesity, unspecified
CPT/HCPCS: 36415; 36592; 70450; 70549; 70551; 80048; 80053; 80061; 84484; 85025; 85610; 93005; 93306; 96365; 96375; 99285; A9575; G0378; J1335; J2930; Q3014

== ENCOUNTER 2023-03-26 14:29 | Outpatient (OUT) | payer MEDICARE, SELFPAY ==
--- NOTE | 2023-03-26 14:33 | MR_ITS ---
The [address] [address] Patient Name: ARJUN MOSCOSO JR MRN: [id number] date: 1950 Sex: M Assigned Patient Location: MRI Current Patient Location: Accession/Order Number: [id number] Exam Date: 03/26/2023 15:00 Report Date: 03/27/2023 01:17 At the request of: ROBSON TOSCANO Procedure: MR head/brain wo/w con EXAMINATION: MR head/brain wo/w con HISTORY: transient ischaemic attack follow-up; anterior falx midline mass COMPARISON: MRI brain 03/07/2023 TECHNIQUE: A variety of imaging planes and parameters were utilized for visualization of suspected pathology. Images were performed without and with Dotarem contrast. FINDINGS: CEREBRUM: Several small T2 hyperintensities within the deep white matter favoring chronic small vessel ischemic changes. No edema, hemorrhage, mass, acute infarction, or inappropriate atrophy. CEREBELLUM: No edema, hemorrhage, mass, acute infarction, or inappropriate atrophy. BRAINSTEM: No edema, hemorrhage, mass, acute infarction, or inappropriate atrophy. CSF SPACES: 1.9 x 0.9 x 1.5 cm avidly enhancing, crescentic shaped dural based mass projecting rightward from the anterior apical falx. SKULL: No mass or other significant visible lesion. SINUSES: Limited views demonstrate no significant mucosal thickening or fluid. ORBITS: Limited views are unremarkable. OTHER: No abnormal meningeal or parenchymal enhancement. MR/MR head/brain wo/w con IMPRESSION: 1. Stable mass along the right side of the falx between the frontal lobes which favors a meningioma. 2. Age consistent mild atrophy and chronic small vessel ischemic changes. Electronically authenticated by: LCAUDE CHENEY Date: 03/27/2023 01:17
== END 2023-03-26 14:30 | disposition home or self-care (01) ==
LOC: MRI 14:29
PROVIDERS: PCP Family Medicine; Visit Provider Nurse Practitioner
DX: G45.9 Transient cerebral ischemic attack, unspecified (principal); D32.0 Benign neoplasm of cerebral meninges
CPT/HCPCS: 70553; A9575

== ENCOUNTER 2023-04-04 12:16 | Outpatient (OUT) | payer MEDICARE, SELFPAY ==
--- NOTE | 2023-04-04 | ECG_ITS ---
The [facility] Test Date: 2023-04-04 Pat Name: ARJUN MOSCOSO Department: Room: - Gender: Male Audio Engineer: : 1950 Requested By: BARRETT HAN Order Number: [id number] Reading MD: SIDNEY MONTAGUE Measurements Intervals [place] Rate: 89 P: 17 NC: 178 QRS: 21 QRSD: 92 T: 2 QT: 349 QTc: 427 Interpretive Statements SINUS RHYTHM VOLTAGE CRITERIA FOR LVH [MEETS CRITERIA IN ONE OF: R(aVL), S(V1), R(V5), R(V5/V6)+S(V1)] NONSPECIFIC T-WAVE ABNORMALITY Compared to ECG 03/06/2023 20:14:51 Left ventricular hypertrophy now present T-wave abnormality now present Electronically Signed On 04-06-2023 18:19:26 EST by SIDNEY MONTAGUE
--- NOTE | 2023-04-04 | XR_ITS ---
The [address] [address] Patient Name: ARJUN MOSCOSO JR MRN: [id number] date: 1950 Sex: M Assigned Patient Location: CARD Current Patient Location: CARD Accession/Order Number: [id number] Exam Date: 04/04/2023 13:10 Report Date: 04/04/2023 13:52 At the request of: BARRETT HAN Procedure: XR chest 2V EXAM: XR chest 2V HISTORY: pre operative exam COMPARISON: None. TECHNIQUE: PA and lateral views of the chest. FINDINGS: The cardiomediastinal silhouette is normal. Right-sided PICC line with the distal tip in SVC. No focal consolidation is identified. There is no pneumothorax. No pleural effusion is noted. The osseous structures are intact. XR/XR chest 2V IMPRESSION: No acute cardiopulmonary process. Electronically authenticated by: KAILASH SUH Date: 04/04/2023 13:52
[2023-04-04 12:48] LABS: Basophils Absolute Auto 0.1 10^3/uL (0.0-0.1); Basophils Percent Auto 0.5 % (0.2-2.0); Eosinophils Absolute Auto 0.7 10^3/uL (0.0-0.7); Eosinophils Percent Auto 4.1 % (0.9-7.0); Hematocrit 33.5 % (42.0-54.0); Hemoglobin 11.3 g/dL (14.0-18.0); Immature Granulocytes Abs Auto 0.07 10^3/uL (0.00-0.03); Immature Granulocytes Pct Auto 0.4 % (0.0-0.5); Lymphocytes Absolute Auto 3.1 10^3/uL (1.2-3.8); Lymphocytes Percent Auto 18.9 % (20.5-60.0); Mean Corpuscular HGB Conc 33.7 g/dL (29.9-35.2); Mean Corpuscular Hemoglobin 30.4 pg (25.9-34.0); Mean Corpuscular Volume 90.1 fL (80.0-94.0); Mean Platelet Volume 9.8 fL (9.5-13.5); Monocytes Absolute Auto 1.2 10^3/uL (0.3-0.8); Monocytes Percent Auto 7.1 % (1.7-12.0); Neutrophils Absolute Auto 11.2 10^3/uL (1.4-6.5); Platelet Count 426 10^3/uL (150-450); Red Blood Count 3.72 10^6/uL (4.70-6.10); Red Cell Distribution Width 12.9 % (11.0-15.0); White Blood Count 16.3 10^3/uL (4.0-11.0)
[2023-04-04 12:57] LABS: Anion Gap 13.3; Calcium 8.9 mg/dL (8.5-10.1); Chloride 102 mmol/L (98-107); Estimated GFR (African America >60 (>=60); Estimated GFR (Non-African Ame >60 (>=60); Glucose 158 mg/dL (74-106); Potassium 5.3 mmol/L (3.5-5.1); Sodium 139 mmol/L (136-145)
== END 2023-04-04 12:17 | disposition home or self-care (01) ==
PROVIDERS: PCP Family Medicine
DX: Z01.818 Encounter for other preprocedural examination (principal); L97.522 Non-pressure chronic ulcer of other part of left foot with fat layer exposed; E10.42 Type 1 diabetes mellitus with diabetic polyneuropathy
CPT/HCPCS: 36415; 71046; 80048; 85025; 93005

== ENCOUNTER 2023-04-11 12:26 | Outpatient (REF) | payer MEDICARE, SELFPAY ==
[2023-04-11 13:07] LABS: Basophils Absolute Auto 0.1 10^3/uL (0.0-0.1); Basophils Percent Auto 0.6 % (0.2-2.0); Eosinophils Absolute Auto 0.4 10^3/uL (0.0-0.7); Eosinophils Percent Auto 3.5 % (0.9-7.0); Hematocrit 32.8 % (42.0-54.0); Hemoglobin 11.3 g/dL (14.0-18.0); Immature Granulocytes Abs Auto 0.06 10^3/uL (0.00-0.03); Immature Granulocytes Pct Auto 0.5 % (0.0-0.5); Lymphocytes Absolute Auto 2.8 10^3/uL (1.2-3.8); Mean Corpuscular HGB Conc 34.5 g/dL (29.9-35.2); Mean Corpuscular Hemoglobin 30.2 pg (25.9-34.0); Mean Corpuscular Volume 87.7 fL (80.0-94.0); Mean Platelet Volume 10.5 fL (9.5-13.5); Monocytes Percent Auto 8.2 % (1.7-12.0); Neutrophils Absolute Auto 7.8 10^3/uL (1.4-6.5); Neutrophils Percent Auto 64.2 % (43.0-75.0); Platelet Count 465 10^3/uL (150-450); Red Blood Count 3.74 10^6/uL (4.70-6.10); Red Cell Distribution Width 13.4 % (11.0-15.0); White Blood Count 12.1 10^3/uL (4.0-11.0)
[2023-04-11 15:53] LABS: C Reactive Protein 0.9 mg/dL (-0.30)
== END 2023-04-11 12:27 | disposition home or self-care (01) ==
LOC: LAB 12:26
PROVIDERS: PCP Family Medicine; Visit Provider Internal Medicine Infectious Disease
DX: M86.9 Osteomyelitis, unspecified (principal)
CPT/HCPCS: 36415; 85025; 86140

== ENCOUNTER 2023-07-31 23:17 | Emergency (ER) | payer OTHER, SELFPAY ==
[2023-07-31 23:22] VITALS: BP 158/67; PULSE 107; RESP 30; O2SAT 84; BMI 33.9
--- NOTE | 2023-07-31 23:30 | XR_ITS ---
The [address] [address] Patient Name: ARJUN MOSCOSO JR MRN: [id number] date: 1950 Sex: M Assigned Patient Location: ER Current Patient Location: ER Accession/Order Number: [id number] Exam Date: 07/31/2023 23:53 Report Date: 08/01/2023 00:13 At the request of: MARC MARKER Procedure: XR chest 1V EXAM: XR chest 1V HISTORY: SOB COMPARISON: 04/04/2020. TECHNIQUE: Single view of the chest FINDINGS: Borderline cardiomegaly. Right IJ catheter terminating at the mid SVC. Diffuse interstitial prominence. No definitive pleural effusion. No pneumothorax. Patient is rotated. XR/XR chest 1V IMPRESSION: Diffuse interstitial opacities, vascular congestion versus atypical infection. Electronically authenticated by: THELMA ANDRADE Date: 08/01/2023 00:13
--- NOTE | 2023-07-31 23:30 | ECG_ITS ---
The [facility] Test Date: 2023-07-31 Pat Name: ARJUN MOSCOSO Department: Room: - Gender: Male Marketing Assistant: : 1950 Requested By: SABINO STEVENS Order Number: [id number] Reading MD: SIDNEY MONTAGUE Measurements Intervals [place]ard Rate: 107 P: 30 RI: 168 QRS: 70 QRSD: 86 T: 82 QT: 338 QTc: 400 Interpretive Statements 1120 Sinus tachycardia 9140 abnormal rhythm ECG Compared to ECG 04/04/2023 12:33:09 Sinus rhythm no longer present Left ventricular hypertrophy no longer present T-wave abnormality no longer present Electronically Signed On 08-03-2023 8:06:39 EDT by SIDNEY MONTAGUE
--- NOTE | 2023-07-31 23:32 | ED.SOB1 ---
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 The patient was sent to the emergency department for evaluation of hypoxia. The patient states he has an occasional cough. He was a former cigar smoker. He states he quit smoking about one month ago. He has been having some cough with difficulty getting any phlegm up. He denies any ear. He has no chest pain. He was noted to be hypoxic at the residential despite being on supplemental oxygen. He denies a history of chronic obstructive pulmonary disease. He is currently receiving dialysis and is scheduled for dialysis tomorrow. MD elicited complaint: shortness of breath Related Data Home Medications Medication Instructions Recorded Confirmed atorvastatin 40 mg tablet 40 mg PO QPM 03/06/23 07/31/23 baclofen 20 mg tablet 20 mg PO TID PRN pain 03/06/23 07/31/23 celecoxib 200 mg capsule 200 mg PO BID 03/06/23 03/06/23 clopidogrel 75 mg tablet 75 mg PO DAILY 03/06/23 07/31/23 duloxetine 60 mg capsule,delayed 60 mg PO DAILY 03/06/23 07/31/23 release gabapentin 800 mg tablet 300 mg PO TID 03/06/23 07/31/23 magnesium oxide 400 mg (241.3 mg 400 mg PO DAILY 03/06/23 03/06/23 magnesium) tablet metoprolol succinate 50 mg 50 mg PO DAILY 03/06/23 07/31/23 tablet,extended release 24 hr nifedipine 30 mg tablet,extended 30 mg PO DAILY 03/06/23 03/06/23 release 24 hr amlodipine 10 mg tablet mg 07/31/23 amoxicillin 875 mg-potassium tab 07/31/23 clavulanate 125 mg tablet furosemide 80 mg tablet mg 07/31/23 hydralazine 50 mg tablet 50 mg PO BID 07/31/23 07/31/23 pantoprazole 40 mg tablet,delayed 40 mg PO DAILY 07/31/23 07/31/23 release Allergies Allergy/AdvReac Type Severity Reaction Status Date / Time cefepime Allergy Severe Hives Verified 03/07/23 06:53 lisinopril Allergy Severe Verified 03/06/23 19:48 metformin Allergy Severe Verified 03/06/23 19:48 Review of Systems ROS Status of ROS 10 or more systems reviewed and unremarkable except as noted in history and below [facility] Medical History (Updated 08/01/23 @ 01:07 by Felisha Guzman MD) Dyslipidemia ?E78.5 - Hyperlipidemia, unspecified (ICD-10) Urticaria ?L50.9 - Urticaria, unspecified (ICD-10) Exam Narrative Exam Narrative: Nurses note and vital signs reviewed; He is tachycardic and tachypnea with an elevated blood pressure of 158/67, he is hypoxic with pulse ox of 84 percent on room air General: Alert, nontoxic male, he is speaking complete sentences, pulse ox 92 percent but with conversation drops into the 80s Skin: Warm, dry, no pallor noted. There is no rash noted. Head: Normocephalic, atraumatic Eye: Normal conjunctiva, no drainage, EOMI. PERRL. No scleral icterus Ears, Nose, Mouth, and Throat: oral mucosa is moist. Cardiovascular: Regular Rate and Rhythm S1S2, tachycardia at 107 bpm at triage and 107 on his EKG Respiratory: Mild conversational dyspnea with diminished breath sounds at both lung bases, no wheezing, rhonchi or rales appreciated Back: non-tender, no CVA tenderness bilaterally to percussion. GI: Normal bowel sounds, no tenderness to palpation, no masses appreciated. No rebound, guarding, or rigidity noted. Musculoskeletal: 1-2 + LE edema, Left foot incision site is clean, dry and intact without redness, warmth or signs of infection Neurological: A&O x4, normal speech Psychiatric: Cooperative Constitutional Vital Signs, click to edit/add: Last Vital Signs Temp 100 F 07/31/23 23:56 Pulse 107 H 08/01/23 01:58 Resp 32 H 08/01/23 01:58 BP 171/86 H 08/01/23 01:58 Pulse Ox 96 08/01/23 01:58 O2 Del Method BIPAP 08/01/23 01:58 O2 Flow Rate 40 07/31/23 23:51 FiO2 65 08/01/23 01:58 Course Vital Signs Vital signs: Vital Signs Pulse Rate 107 H 07/31/23 23:22 Respiratory Rate 30 H 07/31/23 23:22 Blood Pressure 158/67 H 07/31/23 23:22 Pulse Oximetry 84 L 07/31/23 23:22 Oxygen Delivery Method Room Air 07/31/23 23:22 Temperature 100 F 07/31/23 23:56 Pulse Rate 107 H 08/01/23 01:58 Respiratory Rate 32 H 08/01/23 01:58 Blood Pressure 171/86 H 08/01/23 01:58 Pulse Oximetry 96 08/01/23 01:58 Oxygen Delivery Method BIPAP 08/01/23 01:58 Oxygen Delivery Flow Rate 40 07/31/23 23:51 Fraction of Inspired Oxygen 65 08/01/23 01:58 MDM - SOB/Dyspnea MDM Narrative Medical decision making narrative: 72 year old male is transferred from the [facility] care facility where he currently resides for evaluation of shortness of breath.He was sent to the [facility] for rehab after having an amputation of several toes on his left foot. The patient does not have a history of chronic obstructive pulmonary disease. He was recently started on dialysis. He spent 2-1/2 weeks at [facility] according to his family. At the residential [facility] he was noted to be short of breath with hypoxia. He was given a breathing treatment and placed on supplemental oxygen without clinical improvement. He was transferred to the emergency department. Upon arrival he was on supplemental oxygen his pulse ox is in the low 90s but with conversation he desats into the 80s. On arrival is a sinus tachycardia 107 beats for minute with no acute changes. The patient denies any chest pain. His surgical site in his left foot appears to be healing well. He is alert with some degree of conversational dyspnea and decrease breath sounds in both lungs of his lobes. He was placed on Vapotherm after an ABG was performed that was a normal pH but low pulse ox and low oxygen. CO2 was normal. Routine labs are reviewed. His white count of 14.5 and is mildly anemic with a hemoglobin of 7.8. His BUN and creatinine are elevated with a BUN ofAny 8 and creatinine 3.03. He has a normal potassium of 4.2. He has an elevated troponin at 570 and elevated BNP greater than 15,000.He was given a bolus of 80mg Lasix. Lactic acid and procalcitonin are normal. CXR shows B/l pulmonary congestion vs atypical pneumonia. He is scheduled for dialysis tomorrow. The case was discussed with Dr Mejia at [facility] and he is accepted for transfer. We was placed on BiPap prior to his transfer as his pulse ox remained under 90% despite being on the Vapotherm at 40lpm and 70% FIO2. He responded well to the BiPap and remained stable while awaiting transfer to [facility] Medical Records Medical records narrative: [place] [address] XRay Report Signed Patient: ARJUN MOSCOSO JR MR#: [id number] : 1950 Acct:[id number] Age/Sex: 72 / M ADM Date: 07/31/23 Loc: ER Attending Dr: Ordering Physician: Felisha Guzman Date of Service: 07/31/23 Procedure(s): XR chest 1V Accession Number(s): [id number] cc: Felisha Guzman; Tejas Bryant M.D.~ The [place] [id number] Patient Name: ARJUN MOSCOSO JR MRN: [id number] date: 1950 Sex: M Assigned Patient Location: ER Current Patient Location: ER Accession/Order Number: [id number] Exam Date: 07/31/2023 23:53 Report Date: 08/01/2023 00:13 At the request of: FELISHA GUZMAN Procedure: XR chest 1V EXAM: XR chest 1V HISTORY: SOB COMPARISON: 04/04/2020. TECHNIQUE: Single view of the chest FINDINGS: Borderline cardiomegaly. Right IJ catheter terminating at the mid SVC. Diffuse interstitial prominence. No definitive pleural effusion. No pneumothorax. Patient is rotated. XR/XR chest 1V IMPRESSION: Diffuse interstitial opacities, vascular congestion versus atypical infection. Electronically authenticated by: THELMA ANDRADE Date: 08/01/2023 00:13 Lab Data Attestation: I reviewed the patient's lab results. Labs: Lab Results 07/31/23 08/01/23 Range/Units 23:34 01:02 WBC 14.5 H (4.0-11.0) 10^3/uL RBC 2.60 L (4.70-6.10) 10^6/uL Hgb 7.8 L (14.0-18.0) g/dL Hct 24.3 L (42.0-54.0) % MCV 93.5 (80.0-94.0) fL MCH 30.0 (25.9-34.0) pg MCHC 32.1 (29.9-35.2) g/dL RDW 18.2 H (11.0-15.0) % Plt Count 324 (150-450) 10^3/uL MPV 9.6 (9.5-13.5) fL Seg Neuts % (Manual) 91.0 Lymphocytes % (Manual) 0.0 L (20.5-60.0) % Monocytes % (Manual) 9.0 (1.7-12.0) % Eosinophils % (Manual) 0.0 L (0.9-7.0) % Basophils % (Manual) 0.0 L (0.2-2.0) % Neutrophils # (Manual) 13.19 H (1.4-6.5) 10^3/uL Lymphocytes # (Manual) 0.00 L (1.20-3.80) 10^3/uL Monocytes # (Manual) 1.30 H (0.30-0.80) 10^3/uL Eosinophils # (Manual) 0.00 (0.00-0.70) 10^3/uL Basophils # (Manual) 0.00 (0.00-0.10) 10^3/uL WBC Morphology Comment Puncture Site Rr ABG pH 7.418 (7.350-7.450) ABG pCO2 36.4 (35.0-45.0) mmHg ABG pO2 52.8 L* (80.0-100.0) mmHg ABG HCO3 23.5 (22.0-26.0) mmol/L ABG O2 Saturation 87.2 % ABG Base Excess -1.0 (-2.0-2.0) mmol/L Jun Test Positive (POSITIVE) O2 Liters/Min 6l Sodium 126 L (136-145) mmol/L Potassium 4.2 (3.5-5.1) mmol/L Chloride 98 (98-107) mmol/L Carbon Dioxide 23.2 (21.0-32.0) mmol/L Anion Gap 9.0 BUN 28.0 H (7.0-18.0) mg/dL Creatinine 3.03 H (0.70-1.30) mg/dL Est GFR ( Amer) 25 L (>=60) Est GFR (Non-Af Amer) 20 L (>=60) BUN/Creatinine Ratio 9.2 Glucose 125 H (74-106) mg/dL Lactate 1.8 (0.4-2.0) mmol/L Calcium 8.0 L (8.5-10.1) mg/dL Total Bilirubin 0.5 (0.2-1.0) mg/dL AST 30 (15-37) U/L ALT 16 (16-63) U/L Alkaline Phosphatase 89 (46-116) U/L Troponin I High Sens 507.7 H* (4.0-76.1) pg/mL NT-Pro-B Natriuret Pep 89003.0 H* (<=900.0) pg/mL Total Protein 6.9 (6.4-8.2) g/dL Albumin 2.4 L (3.4-5.0) g/dL Globulin 4.5 g/dL Albumin/Globulin Ratio 0.5 Procalcitonin 0.34 (0.00-0.50) ng/mL Adenovirus (PCR) Not detected (NOT DETECTE) C. pneumoniae DNA (PCR) Not detected (NOT DETECTE) Coronavirus Type OC43 Not detected (NOT DETECTE) Coronavirus Type HKU1 Not detected (NOT DETECTE) Coronavirus Type 229E Not detected (NOT DETECTE) Coronavirus Type NL63 Not detected (NOT DETECTE) Human Metapneumovir PCR Not detected (NOT DETECTE) Influenza A (H3) PCR Detected A (NOT DETECTE) M. pneumoniae (PCR) Not detected (NOT DETECTE) Parainfluenza PCR Not detected (NOT DETECTE) Parainfluenza 2 (PCR) Not detected (NOT DETECTE) Parainfluenza 3 (PCR) Not detected (NOT DETECTE) Parainfluenza 4 (PCR) Not detected (NOT DETECTE) RSV (RT-PCR) Not detected (NOT DETECTE) Entero/Rhino (PCR) Not detected (NOT DETECTE) SARS-CoV-2 (PCR) Not detected (NOT DETECTE) Bordetella pertussis (PCR) Not detected (NOT DETECTE) B parapertussis DNA PCR Not detected (NOT DETECTE) Influenza Type B (PCR) Not detected (NOT DETECTE) ECG Data Attestation: I personally reviewed and interpreted this ECG as follows: (Sinus tachycardia 107 beats for minute, normal axis, normal intervals, no acute ST segment elevation or T-wave inversion) Critical Care Time Critical Care Time Critical Care Time: Yes Total Critical Care Time: 40 Attestation: . Discharge Plan Discharge Chief Complaint: Shortness of Breath/Dyspnea Clinical Impression: Pulmonary edema with congestive heart failure, Elevated troponin I level, Anemia, Chronic renal disease Patient Disposition: [facility] Time of Disposition Decision: 01:07 Discharge Location: [facility] Condition: Serious Mode of Transportation: EMS
[2023-07-31 23:40] LABS: ABG PCO2 36.4 mmHg (35.0-45.0); Allen Test POSITIVE (POSITIVE); HCO3 ABG 23.5 mmol/L (22.0-26.0); Oxygen Saturation ABG 87.2 %; pH ABG 7.418 (7.350-7.450)
[2023-07-31 23:41] LABS: Liters per Minute 6L; O2 Mode NASAL CANNULA; Puncture Site RR
[2023-07-31 23:42] LABS: PO2 ABG 52.8 mmHg (80.0-100.0)
[2023-07-31 23:43] VITALS: PULSE 108
--- OUTSIDE RECORDS SUMMARY | 2023-07-31 23:43 | XMS_ITS | CCD ---
Author Name Unknown Address [address] [place] [address] Organization [facility] Care Team Providers Care Gem Carver Name Role Phone Louise Sotelo Unavailable DR TEJAS STEVENS Primary Care Unavailable DR TRENT PIEDRA Attending Unavailable DR TRENT PIEDRA Admitting Unavailable GARIMA BUCHANAN Attending Unavailable GARIMA BUCHANAN Admitting Unavailable DR TEJAS STEVENS Primary Care Unavailable LEENA BELTRAN Consulting Unavailable GARIMA BUCHANAN Consulting Unavailable Dhruv Bautista Unavailable Pamela Berry Unavailable MD Dhruv Bautista Attending Provider [phone] MD Tejas Stevens Primary Care Provider DO Rico Carr Emergency Provider MD Brennan Cerrato Admit Provider MD Brennan Cerrato Attending Provider [phone] MD Michael Ramírez Other Provider TOY Han Other Provider [phone] JULIA Slater Other Provider Unavailable MD Dhruv Bautista Other Provider MARCO ANTONIO Berry Other Provider MD Mayra Youngblood Other Provider MD Giovanni Ni Other Provider DO Orestes Mejia Attending Provider MD Michael Ramírez Attending Provider DO Arcadio Grey Primary Care Provider LELAND Sotelo Attending Provider [phone] TOY Han Attending Provider MD Dhruv Bautista Attending Provider [phone] MD Tejas Stevens Primary Care Provider DO Rico Carr Emergency Provider MD Saqib Fir Admit Provider MD Michael Ramírez Other Provider TOY Han Other Provider JULIA Slater Other Provider Unavailable MD Dhruv Bautista Other Provider ANDRES Berry-C Pamela Locke Other Provider MD [facility] Other Provider MD Giovanni Ni Other Provider DO Orestes Mejia Attending Provider MD Michael Ramírez Attending Provider DO Arcadio John Carrington Primary Care Provider LELAND Sotelo Attending Provider TOY Han Attending Provider Michael Ramírez Unavailable KENNETH GONZALES Attending Unavailable TEJAS STEVENS Referring Unavailable TEJAS STEVENS Primary Care Unavailable Annette PIERRE, Tejas Primary Care Provider Annette PIERRE, Tejas Primary Care Provider Tejas Stevens MD Unavailable DO John Ervin Primary Care Provider [phone] LELAND Sotelo Attending Provider MD Tejas Stevens Primary Care Provider LELAND Hudson Emergency Provider [phone] MD Arnaldo Thomas Admit Provider MD Arnaldo Thomas Attending Provider [phone] BROWN, ROHAN A Attending Unavailable BROWN, ROHAN A Attending Unavailable BROWN, ROHAN A Attending Unavailable BROWN, ROHAN A Attending Unavailable BROWN, ROHAN A Attending Unavailable BROWN, ROHAN A Attending Unavailable BROWN, ROHAN A Attending Unavailable BROWN, ROHAN A Attending Unavailable BROWN, ROHAN A Attending Unavailable BROWN, ROHAN A Attending Unavailable BROWN, ROHAN A Attending Unavailable MD Michael Ramírez Other Provider TOY Han Other Provider MD Mayra Youngblood Other Provider MD Tello Nava Attending Provider [phone] MD Sanket Hammer Other Provider JULIA Slater Other Provider Unavailable MD Dhruv Bautista Other Provider MAROC ANTONIO Berry Other Provider MD Giovanni Ni Other Provider MD Hermes Morton Other Provider MD Rancho Kay Attending Provider Michael Ramírez Consulting Unavailable Tejas Stevens Primary Care Unavailable Orestes Mejia Attending Unavailable Semitcho Firas Admitting Unavailable Rohan Han Consulting Unavailable Richa Slater Consulting Unavailable Dhruv Bautista Consulting Unavailable Pamela Berry Consulting Unavailable Mayra Youngblood Consulting Unavailable Giovanni Ni Consulting Unavailabl e Michael Ramírez Attending Unavailable Michael Ramírez Admitting Unavailable Louise Sotelo Attending Unavailable Ashleigh Tondrneville K Admitting Unavailable John Ervin Primary Care Unavailable Tejas Stevens Primary Care Unavailable Dhruv Bautista Attending Unavailable Dhruv Bautista Admitting Unavailable Tejas Stevens Primary Care Unavailable Rahul, Rancho Attending Unavailable Rahul, Rancho Admitting Unavailable Dylanrenilay, Dhruv Attending Unavailable Dylanrenilya, Dhruv Admitting Unavailable Naderer, Tejas Primary Care Unavailable Blank, Admitting Unavailable Blank, Attending Unavailable Blank, Attending Unavailable Blank, Admitting Unavailable Blank, Attending Unavailable Blank, Admitting Unavailable Rohan Han Attending Unavailable Rohan Han Admitting Unavailable Desiree, Consulting Unavailable Ashwinierer, Tejas Primary Care Unavailable Thomas, Arnaldo Admitting Unavailable Geo Thomas Attending UnavailRohan Escalante Consulting Unavailable Mayra Youngblood Consulting Unavailable Sanket Hammer Consulting Unavailable Richa Slater Consulting Unavailable Dhruv Bautista Consulting Unavailable Pamela Berry Consulting Unavailable Giovanni Ni Consulting UnavailHermes George Consulting Unavaila ble Allergies Allergy Classification Reported Allergen(s) Allergy Type Date of Onset Reaction(s) Facility (20 sources) Lisinopril; Translations: [LISINOPRIL] Drug Allergy 7 SWELLING, Facial Swelling [facility] (20 sources) metFORMIN; Translations: [METFORMIN] Drug Allergy 7 Other (See Comments) [facility] (1 source) Amino Acids Drug Allergy [facility] (1 source) metFORMIN Drug Allergy [facility] (6 sources) cefepime Drug Allergy 4 Unknown, Hives [facility] (6 sources) Lisinopril Allergy to substance [address] [facility] (1 source) cefepime Drug Allergy 4 [facility] (1 source) Lisinopril Drug Allergy 4 [facility] (1 source) metFORMIN Drug Allergy 4 [facility] Medications Current Medications Medication Drug Class(es) Dates Sig (Normalized) Sig (Original) atorvastatin 40 mg oral tablet (20 sources) HMG-CoA Reductase Inhibitor Start: 07-07-2019 take 40 mg by mouth once daily Atorvastatin Active 40 MG PO Daily January 12, 2023 11:00pm take 1 tablet by mouth once katarina y at bedtime baclofen 20 mg oral tablet (20 sources) gamma-Aminobutyric Acid-ergic Agonist Start: 01-13-2023 Baclofen Active MG TABLET January 13, 2023 12:00am Start: 10-03-2022 take 20 mg by mouth three times daily Baclofen Active 20 MG PO Three times daily January 12, 2023 11:00pm Start: 10-03-2022 take 1 tablet by shelbie in the morning, then take 1 tablet by mouth in the evening, then take 1 tablet by mouth at bedtime baclofen (Lioresal) 20 MG tablet Take 20 mg by mouth in the morning and 20 mg in the evening and 20 mg before bedtime. 0 10/03/2022 Active celecoxib 200 mg oral capsule (20 sources) Nonsteroidal Anti-inflammatory Drug Start: 07-07-2019 take 200 mg by mouth once daily Celecoxib Active 200 MG PO Daily January 12, 2023 11:00pm take 1 capsule by mo [facility] every twelve hours CeleBREX 200 MG 1 capsule with food Oral ly bid Active take 1 capsule by mo uth every twenty-four hours CeleBREX 100 MG 1 capsule with food Oral ly Once a day Active clopidogrel 75 mg oral tablet (20 sources) P2Y12 Platelet Inhibitor Start: 01-13-2023 take 1 tablet by mouth once daily Clopidogrel (Plavix) 75 mg tablet Active 75 MG PO Daily 90 90 January 12, 2023 11:00pm 0.5 ML dulaglutide 6 MG/ML Auto-Injector [Trulicity] (20 sources) GLP-1 Receptor Agonist Start: 02-06-2022 inject 3 mg by subcutaneous injection every week Trulicity 3 MG/0.5ML 3mg Subcutaneous once weekly Jan, Active Start: 08-23-2021 Trulicity 0.75 MG/0.5ML as directed Subcutaneous weekly Jul, Active Start: 08-23-2021 Trulicity 1.5 MG/0.5ML as directed Subcutaneous weekly Jul, Active inject 3 mg by subcu taneous injection every week Trulicity 3 MG/0.5ML 3mg Subcutaneous once weekly Active dulaglutide (TRULICITY) 3 mg/0.5 mL pen injector (1 source) inject 3 mg by subcutaneous injection every week dulaglutide (TRULICITY) 3 mg/0.5 mL pen injector Inject 3 mg under the skin once a week. 0 Active DULoxetine 60 mg delayed release oral capsule (20 sources) Serotonin and Norepinephrine Reuptake Inhibitor Start: 023 Duloxetine Active MG PO January 13, 2023 12:00am Start: 07-07-2019 take 60 mg by mouth once daily Duloxetine Active 60 MG PO Daily January 12, 2023 11:00pm DULoxetine HCl A ctive Flash Glucose Sensor (Freest yle Shawn 2 Sensor) kit (10 sources) Start: 01-13-2023 Flash Glucose Sensor (Freestyle Shawn 2 Sensor) kit Active EACH MISCELLANE January 12, 2023 11:00pm Start: 01-13-2023 Flash Glucose Sensor (Freestyle Shawn 2 Sensor) kit Active EACH MISCELLANE January 13, 2023 12:00am FreeStyle Shawn 2 [place] - (5 sources) Start: 03-17-2023 FreeStyle Libr e 2 [place] - Use with Shawn 2 sensors SQ daily for 365 days E11.40 Feb, Active FreeStyle Shawn 2 Sensor - (20 sources) FreeStyle Shawn 2 Sensor - Change sensor EVERY 14 days for 84 Active FreeStyle Shawn 2 Sensor - as directed SQ Change every 14 days for 84 days Active gabapentin 800 mg oral tablet (20 sources) Anti-epileptic Agent Start: 01-13-2023 take 800 mg by mouth three times daily Gabapentin Active 800 MG PO Three times daily January 12, 2023 11:00pm take 3 capsules by m outh three times daily gabapentin (NEURONTIN) 100 mg capsule Ta ke 3 capsules (300 mg total) by mouth 3 (three) times a day. 0 Active take 1 tablet by mouth every eig ht hours Gabapentin 600 MG 1 capsule Orally tid for 30 day(s) Active ibuprofen 200 mg oral tablet (20 sources) Nonsteroidal Anti-inflammatory Drug take 1 tablet by mouth every six hours as needed for pain ibuprofen (ADVIL,MOTRIN) 200 mg tablet Take 1 tablet (200 mg total) by mouth every 6 (six) hours as needed for pain. 0 Active Motrin Active 3 ml insulin glargine 100 unt/ml pen injector (20 sources) Insulin Analog Start: 02-23-2023 Insulin Glargi ne (Basaglar Kwikpen U-100 Insulin) 100 unit/mL (3 mL) Insulin Pen Active 37 UNIT SUBCUT 2 times daily February 22, 2023 11:00pm Start: 02-23-2023 Insulin Glargi ne (Basaglar Kwikpen U-100 Insulin) 100 unit/mL (3 mL) Insulin Pen Active 41 UNIT SUBCUT 2 times daily February 22, 2023 11:00pm Basaglar KwikPen 100 UNIT/ML 25 units Subcutaneous qam (titrate up to max 40 units/day) Active inject 40 [IU] by marroquin bcutaneous injection in the morning insulin glargine (LANTUS, BASAGLAR) 100 unit/mL (3 mL) insulin pen Inject 40 Units under the skin in the morning and 40 Units before bedtime. 0 Active Basaglar KwikPen 100 UNIT/ML 40 units Subcutaneous bid Active 3 ml insulin lispro 100 unt/ ml pen injector (20 sources) Insulin Analog HumaLOG KwikPen 100 UNIT/ML 10-15-20-25 units ac according to meal size tid plus ISS 1:15 ac (hs if >200 half dose) SQ as directed expect up to 60 units/day Active insulin lispro ( HumaLOG) 100 unit/mL injection Inject under the skin 3 (three) times a day before meals. Sliding scale based on blood sugar 0 Active HumaLOG KwikPen 100 UNIT/ML 10-15-20 ac according to meal size tid plus ISS 1:15 ac (hs if >200 half dose) SQ as directed expect up to 100 units/day Active Insulin Lispro (Humalog Kwik pen Insulin) 100 unit/mL Insulin Pen (8 sources) Start: 02-23-2023 Insulin Lispro (Humalog Kwikpen Insulin) 100 unit/mL Insulin Pen Active 0 .ROUTE .COMPLEX February 22, 2023 11:00pm [facility] Start: 02-23-2023 Insulin Lispro (Humalog Kwikpen Insulin) 100 unit/mL Insulin Pen Active 0 .ROUTE .COMPLEX February 23, 2023 12:00am [facility] [place]orolac tromethamine 5 mg/ml ophthalmic solution (6 sources) Nonsteroidal Anti-inflammatory Drug, Cyclooxygenase Inhibitor Start: 06-16-2022 ketorolac (Acul ar) 0.5 % ophthalmic solution Administer 1 drop into both eyes in the morning and 1 drop at noon and 1 drop in the evening and 1 drop before bedtime. 0 06/16/2022 Active meropenem 1000 mg injection (12 sources) Penem Antibacterial Start: 03-12-2023 meropenem (Merrem) 1 g injection Start: 03-06-2023 Meropenem 1 GM as directed Intravenous q 12 for 33 days dc cefepime Feb, Active Meropenem 1 GM a s directed Intravenous q 12 for 14 days Active Meropenem 1 GM a s directed Intravenous Active metFORMIN hydrochloride 1000 mg oral tablet (6 sources) Biguanide take 1 tablet by mouth at mealtime metFORMIN (Glucophage) 1000 MG tablet Take 1,000 mg by mouth in the morning. Take with meals. 0 Active 24 hr metoprolol succinate 50 mg extended release oral tablet (20 sources) beta-Adrenergic Sarika Start: take 50 mg by mouth once daily Metoprolol Succinate Active 50 MG PO Daily January 12, 2023 11:00pm Start: 05-06-2022 take 1 tablet by shelbie th every twenty-four hours in the morning metoprolol succinate XL (Toprol-XL) 50 MG 24 hr tablet Take 50 mg by mouth in the morning. 0 10/03/2022 Active Metoprolol Succi rebel ER Active NIFEdipine 30 mg osmotic 24 hr extended release oral tablet (17 sources) Dihydropyridine Calcium Channel Sarika Start: 03-05-2023 take 1 tablet by mouth every twenty-four hours in the morning NIFEdipine XL (Procardia XL) 30 MG 24 hr tablet Take 30 mg by mouth in the morning. 0 03/05/2023 Active Start: 03-04-2023 take 30 mg by mouth once daily Nifedipine Active 30 MG PO Daily March 03, 2023 11:00pm take 1 tablet by shelbie th every twenty-four hours NIFEdipine ER 30 MG 1 tablet on an empty stomach Orally Once a day Active omeprazole 20 mg delayed release oral capsule (20 sources) Proton Pump Inhibitor Start: 07-10-2023 take 20 mg by mouth once daily in the morning Omeprazole Active 20 MG PO Every morning July 10, 2023 12:00am Medication Name: Omeprazole; Note: Source Status: Taking; Provider: Ashleigh Gil ( ) take 1 capsule by mo ut once daily before breakfast omeprazole (PriLOSEC) 20 mg capsule Take 1 capsule (20 mg total) by mouth every morning before breakfast. 0 Active Omeprazole Activ e One Touch Glucometer 1 (20 sources) Start: 11-10-2014 One Touch Gluc ometer 1 use to test blood sugars 250.02 / V58.67 4 x daily Oct, Active OneTouch Ultra Blue 100 pack (20 sources) OneTouch Ultra B lue 100 pack use with One Touch Ultra Glucometer 4 x daily for 90 day(s) E11.40 Active traMADol hydrochloride 50 mg oral tablet (16 sources) Opioid Agonist Start: 05-30-2023 End: 06-29-2023 take 1 tablet by mouth four times daily as needed for pain traMADol (Ultram) 50 MG tablet Indications: Other intervertebral disc degeneration, lumbar region Take 1 tablet (50 mg) by mouth 4 (four) times a day as needed for moderate pain or severe pain 120 tablet 0 05/30/2023 06/29/2023 Active Start: 01-13-2023 Tramadol Activ e 50 MG PO EVERY 6-12 HOURS January 12, 2023 11:00pm take 1 tablet by shelbie th once daily as needed traMADol ER (ULTRAM-ER) 200 MG 24 hr tablet Take 1 tablet (200 mg total) by mouth daily as needed. 0 Active Vitamin D 125 MCG (5000 UT) (20 sources) take 1 tablet by shelbie th once daily Vitamin D 125 MCG (5000 UT) 1 tablet Orally Daily Active Vitamin D3 (3 sources) Vitamin D3 Activ e Completed/Discontinued Medications Medication Drug Class(es) Dates Sig (Normalized) Sig (Original) aspirin 81 mg delayed release oral tablet (10 sources) Platelet Aggregation Inhibitor, Nonsteroidal Anti-inflammatory Drug Start: 01-13-2023 End: 02-23-2023 take 81 mg by mouth once daily Aspirin Discontinued 81 MG PO Daily 90 90 January 12, 2023 11:00pm February 23, 2023 4:15pm pt states was told to hold medication cefepime 2000 mg injection (15 sources) Cephalosporin Antibacterial Start: 03-03-2023 End: 07-16-2023 take 2 g intravenously every twelve hours Cefepime Discontinued 2 GM IV Q12H 70 35 March 02, 2023 11:00pm July 16, 2023 9:46am Cefepime HCl 2 G M as directed Intravenous Active FreeStyle InsuLinx Test - (12 sources) FreeStyle InsuLi nx Test - Use Test Strip to test BLOOD SUGAR DIRECTED BEFORE MEALS & AT BEDTIME NEEDED for 90 Not-Taking FreeStyle Shawn 14 Day Reade r - (12 sources) Start: 10-08-2018 FreeStyle Libr e 14 Day [place] - use with 14 day sensors SQ Daily for 365 days September, Not-Taking Start: 10-08-2018 FreeStyle Libr e 14 Day [place] - use with 14 day sensors SQ Daily for 365 days September, Active FreeStyle Shawn 14 Day Senso r - (12 sources) Start: 10-08-2018 FreeStyle Libr e 14 Day Sensor - use with 14 day reader SQ change every 14 days for 84 day(s) E11.40 September, Not-Taking Start: 10-08-2018 FreeStyle Libr e 14 Day Sensor - use with 14 day reader SQ change every 14 days for 84 day(s) E11.40 September, Active Gemfibrozil (12 sources) Peroxisome Proliferator Receptor alpha Agonist take 1 tablet by mouth twice daily Gemfibrozil 600 1 tablet Orally Twice a day for 30 day(s) Active take 1 tablet by mouth twice christ ly Gemfibrozil 600 1 tablet Orally Twice a day for 30 day(s) Not-Taking magnesium oxide 400 mg oral tablet (17 sources) Start: 03-04-2023 End: 07-10-2023 take 400 mg by mouth once daily Magnesium Oxide Discontinued 400 MG PO Daily March 03, 2023 11:00pm July 10, 2023 9:48pm Medical Marijuana / Cannabinoid Product as documented (12 sources) Medical Marijuan a / Cannabinoid Product as documented as documented as documented as documented Active Medical Marijuan a / Cannabinoid Product as documented as documented as documented as documented Not-Taking omega-3 acid ethyl esters (shelter) 1000 mg oral capsule (12 sources) Start: 07-27-2020 take 2 capsules by mouth every twelve hours Lovaza 1 GM 2 capsules Orally Twice a day for 30 day(s) Jul, Not-Taking 0.25 mg, 0.5 mg dose 1.5 ml semaglutide 1.34 mg/ml pen injector (12 sources) Start: 11-14-2020 Ozempic (0.25 or 0.5 MG/DOSE) 2 MG/1.5ML 0.5mg Subcutaneous once weekly for 84 days Oct, Not-Taking Problems Active Problems Problem Classification Problem Date Documented Da te Episodic/Chronic Acute and unspecified renal failure (3 sources) Acute renal failure syndrome; Translations: [Acute kidney failure, unspecified] Onset: 07-10-2023 07-16-2023 Episodic Administrative/social admission (7 sources) Dietary counseling and surveillance; Translations: [Dietary counseling and surveillance Z71.3] Onset: 02-22-2021 Resolved: 02-06-2022 Episodic Cancer of prostate (1 source) Malignant tumor of prostate; Translations: [Malignant neoplasm of prostate] Onset: 07-22-2019 12-04-2022 Chronic Chronic kidney disease (1 source) Chronic kidney disease, unspecified; Translations: [Chronic kidney disease, unspecified] Onset: 07-10-2023 Chronic Chronic ulcer of skin (20 sources) Non-pressure chronic ulcer of other part of left foot with unspecified severity; Translations: [Non-pressure chronic ulcer of other part of left foot with bone involvement without evidence of necrosis] Onset: 02-23-2023 Chronic Coronary atherosclerosis and other heart disease (2 sources) Coronary atherosclerosis and other heart disease; Translations: [Atherosclerosis of [place] arteries of extremities with intermittent claudication, left leg] Onset: 01-13-2023 Deficiency and other anemia (1 source) Anemia in chronic kidney disease; Translations: [Anemia in chronic kidney disease] Onset: 07-10-2023 Chronic Diabetes mellitus with complications (20 sources) Disorder of kidney due to diabetes mellitus; Translations: [Type 2 diabetes mellitus with other diabetic kidney complication] Onset: 02-22-2021 Resolved: 02-06-2022 Chronic Diabetes mellitus with complications (1 source) Diabetes mellitus with complications; Translations: [Type 2 diabetes mellitus with other skin complications] Onset: 02-23-2023 Diabetes mellitus without complication (5 sources) Type 2 diabetes mellitus; Translations: [Type 2 diabetes mellitus without complications] Onset: 07-10-2023 07-10-2023 Chronic Diseases of white blood cells (3 sources) Leukocytosis; Translations: [Elevated white blood cell count, unspecified] Onset: 07-10-2023 07-14-2023 Chronic Disorders of lipid metabolism (20 sources) Hyperlipidemia; Translations: [Hyperlipidemia, unspecified] Onset: 02-22-2021 Resolved: 09-14-2022 Chronic Diverticulosis and diverticulitis (1 source) Diverticulosis of large intestine without perforation or abscess without bleeding; Translations: [DVRTCLOS LG INT NO PERF/ABSC W/O BL] Onset: 07-25-2022 Chronic Essential hypertension (20 sources) Essential hypertension; Translations: [Essential (primary) hypertension] Onset: 01-06-2017 Resolved: 02-06-2022 Chronic Fluid and electrolyte disorders (3 sources) Hyponatremia; Translations: [Hypo-osmolality and hyponatremia] Onset: 07-10-2023 07-15-2023 Episodic Gangrene (13 sources) Gangrene, not elsewhere classified; Translations: [Gangrene] Onset: 07-10-2023 07-11-2023 Episodic Infective arthritis and osteomyelitis (except that caused by tuberculosis or sexually transmitted disease) (20 sources) Acute osteomyelitis of ankle and/or foot; Translations: [Acute hematogenous osteomyelitis, left ankle and foot] Onset: 02-23-2023 02-24-2023 Chronic Mycoses (2 sources) Onychomycosis; Translations: [Tinea unguium] 06-26-2023 Episodic Nutritional deficiencies (20 sources) Vitamin D deficiency; Translations: [Vitamin D deficiency, unspecified] Onset: 02-22-2021 Resolved: 04-03-2021 Chronic Open wounds of extremities (1 source) Laceration without foreign body, unspecified foot, initial encounter Episodic Other aftercare (20 sources) Long-term current use of insulin; Translations: [longterm (current) use of insulin] Episodic Other aftercare (8 sources) longterm (current) use of insulin; Translations: [longterm current use of insulin Z79.4] Onset: 02-22-2021 Resolved: 02-06-2022 Episodic Other and unspecified benign neoplasm (1 source) Benign neoplasm of meninges, unspecified; Translations: [Benign neoplasm of meninges, unspecified] Onset: 05-12-2023 Chronic Other connective tissue disease (2 sources) Pain of toe of left foot; Translations: [Pain in left toe(s)] 06-26-2023 Episodic Other connective tissue disease (2 sources) Pain of toe of right foot; Translations: [Pain in right toe(s)] 06-26-2023 Episodic Other gastrointestinal disorders (8 sources) Diarrhea; Translations: [Diarrhea, unspecified] 02-28-2023 Episodic Other gastrointestinal disorders (1 source) Constipation; Translations: [Constipation, unspecified] 07-15-2023 Episodic Other gastrointestinal disorders (2 sources) Constipation, unspecified; Translations: [Constipation, unspecified] Onset: 07-10-2023 07-10-2023 Episodic Other nutritional; endocrine; and metabolic disorders (20 sources) Obesity; Translations: [Obesity, unspecified] Chronic Other nutritional; endocrine; and metabolic disorders (20 sources) Obese class I; Translations: [Body mass index (BMI) 31.0-31.9, adult] Chronic Other nutritional; endocrine; and metabolic disorders (20 sources) Body mass index 30+ - obesity; Translations: [Body mass index (BMI) 30.0-30.9, adult] Chronic Other nutritional; endocrine; and metabolic disorders (3 sources) Body mass index (BMI) 30.0-30.9, adult; Translations: [BMI 30.0-30.9,adult Z68.30] Onset: 02-22-2021 Resolved: 02-22-2021 Chronic Other nutritional; endocrine; and metabolic disorders (1 source) Body mass index (BMI) 31.0-31.9, adult Onset: 04-03-2021 Resolved: 04-03-2021 Chronic Other nutritional; endocrine; and metabolic disorders (20 sources) Obese class II; Translations: [Body mass index (BMI) 36.0-36.9, adult] Chronic Other nutritional; endocrine; and metabolic disorders (1 source) Body mass index (BMI) 36.0-36.9, adult Onset: 08-23-2021 Resolved: 08-23-2021 Chronic Other nutritional; endocrine; and metabolic disorders (1 source) Body mass index (BMI) 35.0-35.9, adult Onset: 02-06-2022 Resolved: 02-06-2022 Chronic Other nutritional; endocrine; and metabolic disorders (1 source) Body mass index (BMI) 34.0-34.9, adult Chronic Other screening for suspected conditions (not mental disorders or infectious disease) (4 sources) Encounter for screening for malignant neoplasm of colon; Translations: [ENC SCREEN MALIG NEOPLASM COLON] Onset: 07-23-2022 Episodic Peripheral and visceral atherosclerosis (20 sources) Peripheral vascular disease; Translations: [Peripheral vascular disease, unspecified] Onset: 02-23-2023 Chronic Residual codes; unclassified (20 sources) Deficient knowledge of dietary regimen; Translations: [Other specified health status] Episodic Residual codes; unclassified (1 source) Acquired absence of other specified parts of digestive tract; Translations: [ACQ ABSENCE OTH PART DIGESTV TRACT] Onset: 07-25-2022 Episodic Screening and history of mental health and substance abuse codes (1 source) Personal history of nicotine dependence; Translations: [PERSONAL HISTORY OF NICOTINE DEPEND] Onset: 07-25-2022 Episodic Septicemia (except in labor) (4 sources) Sepsis; Translations: [Sepsis, unspecified organism] 07-10-2023 Episodic Septicemia (except in labor) (1 source) Septicemia (except in labor); Translations: [Sepsis, unspecified organism] Onset: 07-10-2023 Skin and subcutaneous tissue infections (4 sources) Cellulitis of left foot; Translations: [Cellulitis of left lower limb] Onset: 02-23-2023 07-11-2023 Episodic Unclassified (1 source) Consult Onset: 05-12-2023 Unclassified (1 source) Other acute osteomyelitis, left ankle and foot; Translations: [Other acute osteomyelitis, left ankle and foot] Onset: 03-25-2023 Past or Other Problems Problem Classification Problem Date Documented Da te Episodic/Chronic Bacterial infection; unspecified site (14 sources) Bacterial infection due to Pseudomonas; Translations: [Other bacterial infections of unspecified site] Onset: 02-23-2023 02-28-2023 Episodic Mood disorders (1 source) Mood disorders Onset: 01-06-2017 01-06-2017 Nausea and vomiting (14 sources) Vomiting; Translations: [Vomiting, unspecified] Onset: 02-23-2023 02-28-2023 Episodic Other aftercare (1 source) longterm (current) use of antibiotics; Translations: [longterm (current) use of antibiotics] Onset: 02-23-2023 Episodic Other gastrointestinal disorders (6 sources) Diarrhea, unspecified; Translations: [Diarrhea] Onset: 02-23-2023 03-04-2023 Episodic Other male genital disorders (1 source) Phimosis; Translations: [Phimosis] Onset: 07-22-2019 08-14-2020 Episodic Spondylosis; intervertebral disc disorders; other back problems (14 sources) Sciatica; Translations: [Sciatica, left side] Onset: 02-23-2023 02-25-2023 Episodic Results Test Name Value Interpretation Reference Range Facility Glucose Poct Glucometerson 0 07-26-2023 Glucose [Mass/Vol] 217 mg/dL Normal [facility] Comment on above: Result Comment: [place] om Glucose Reference Range is dependent on time and content of last meal. Glucose of more than 200 mg/dL in a nonstressed, ambulatory subject supports the diagnosis of Diabetes Mellitus.PERFORMED BY:[facility] [place], [place] [id number] MEDICAL DIRECTORJOSEPH GARCIA M.D. Performed By: #### G LULS ####Point of Care testing, Glucose [Mass/Vol] 150 mg/dL Normal [facility] Comment on above: Result Comment: [place] Glucose Reference Range is dependent on time and content of last meal. Glucose of more than 200 mg/dL in a nonstressed, ambulatory subject supports the diagnosis of Diabetes Mellitus.PERFORMED BY:[facility]iko[address]acyLU[address] [place], [place] [phone] MEDICAL DIRECTORJOSEPH GARCIA M.D. Performed By: #### G LULS ####Point of Care testing, Renal Function Panelon 07-25 Albumin [Mass/Vol] 2.4 g/dL Low 3.5-5.7 [facility] Comment on above: Order Comment: in pt Performed By: #### R ENAL ####[facility] [id number] [place] [address] [facility] Anion gap [Moles/Vol] 10.3 mmol/L Normal 6.0-15.0 [facility] Comment on above: Order Comment: in pt Performed By: #### R ENAL ####[facility] [id number] [place] [address] [facility] Calcium [Mass/Vol] 7.3 mg/dL Low 8.6-10.3 [facility] Comment on above: Order Comment: in pt Performed By: #### R ENAL ####[facility] [place] [address] [place] Chloride [Moles/Vol] 101 mmol/L Normal 98-107 [facility] Comment on above: Order Comment: in pt Performed By: #### R ENAL ####[facility] [place] [address] [facility] CO2 [Moles/Vol] 25.7 mmol/L Normal 21.0-31.0 [facility] Comment on above: Order Comment: in pt Performed By: #### R ENAL ####[address] [place] [address] [facility] Creatinine [Mass/Vol] 2.73 mg/dL Significan t change up 0.70-1.30 [facility] Comment on above: Order Comment: in pt Performed By: #### R ENAL ####[address] [place] [address] [facility] Creatinine Clr Calc Pharmacy 28.64 Normal [facility] Comment on above: Order Comment: in pt Result Comment: PERF ORMED BY:[address] [place], [place] [phone] MEDICAL DIRECTORJOSEPH GARCIA M.D. Performed By: #### R ENAL ####[address] [address] [facility] GFR/1.73 sq M.predicted MDRD (S/P/Bld) [Vol rate/Area] 24.111 mL/min/{1.73_m2} Normal [facility] Comment on above: Order Comment: in pt Performed By: #### R ENAL ####[address] [address] [place] Glucose [Mass/Vol] 199 mg/dL Significant change up 70-100 [facility] Comment on above: Order Comment: in pt Result Comment: [place] om Glucose Reference Range is dependent on time and content of last meal. Glucose of more than 200 mg/dL in a nonstressed, ambulatory subject supports the diagnosis of Diabetes Mellitus. ADA recommended reference range Performed By: #### R ENAL ####[facility] [place] [address] [facility] Phosphate [Mass/Vol] 4.6 mg/dL High 2.5-4.5 [facility] Comment on above: Order Comment: in pt Performed By: #### R ENAL ####[address] [place] [address] [facility] Potassium [Moles/Vol] 4.0 mmol/L Normal 3.5-5.1 [facility] Comment on above: Order Comment: in pt Performed By: #### R ENAL ####[address] [address] [facility] Sodium [Moles/Vol] 133 mmol/L Low 136-145 [facility] Comment on above: Order Comment: in pt Performed By: #### R ENAL ####[address] [address] [facility] Urea nitrogen [Mass/Vol] 19 mg/dL Normal 7-25 [facility] Comment on above: Order Comment: in pt Performed By: #### R ENAL ####[address] [address] [facility] Complete Blood Count Auto Di ffon 07-25-2023 Basophils (Bld) [#/Vol] 0.2 10*3/uL Normal 0.0-0.2 [facility] Comment on above: Result Comment: PERF ORMED BY:[address] [place], [place] [phone] MEDICAL SILVIA GARCIA M.D. Performed By: #### C BC ####[address] [address] [facility] Basophils/100 WBC (Bld) 1.2 % Normal . [facility] Comment on above: Performed By: #### C BC ####[address] [address] [facility] Eosinophils (Bld) [#/Vol] 0.4 10*3/uL Normal 0.0-0.45 [facility] Comment on above: Performed By: #### C BC ####[address] Eosinophils/100 WBC (Bld) 2.4 % Normal . [facility] Comment on above: Performed By: #### C BC ####[address] Erythrocyte distribution width (RBC) [Ratio] 18.1 % High 12.0-14.8 [facility] Comment on above: Performed By: #### C BC ####[address] Hematocrit (Bld) [Volume fraction] 23.0 % Low 38.8-50.0 [facility] Comment on above: Performed By: #### C BC ####[address] Hemoglobin (Bld) [Mass/Vol] 8.0 g/dL Low 13.0-17.0 [facility] Comment on above: Performed By: #### C BC ####[address] Lymphocytes (Bld) [#/Vol] 2.7 10*3/uL Normal 1.00-4.8 [facility] Comment on above: Performed By: #### C BC ####[address] Lymphocytes/100 WBC (Bld) 15.3 % Normal . [facility] Comment on above: Performed By: #### C BC ####[address] MCH (RBC) [Entitic mass] 30.0 pg Normal 27.5-35.2 [facility] Comment on above: Performed By: #### C BC ####[id number] [facility] MCV (RBC) [Entitic vol] 86.4 fL Normal 83.5-101 [facility] Comment on above: Performed By: #### C BC ####[id number] [facility] Mean Corpuscular HGB Conc 34.7 g/dL Normal 32.5-35.6 [facility] Comment on above: Performed By: #### C BC ####[address] Monocytes (Bld) [#/Vol] 1.4 10*3/uL High 0.0-0.8 [facility] Comment on above: Performed By: #### C BC ####[address] Monocytes/100 WBC (Bld) 8.0 % Normal . [facility] Comment on above: Performed By: #### C BC ####[address] Neutrophils (Bld) [#/Vol] 12.9 10*3/uL High 1.8-7.7 [facility] Comment on above: Performed By: #### C BC ####[address] Neutrophils/100 WBC (Bld) 73.1 % Normal . [facility] Comment on above: Performed By: #### C BC ####[address] NRBC% 0.1 /100{WBC} Normal 0-0.5 [facility] Comment on above: Performed By: #### C BC ####[address] Platelet mean volume (Bld) [Entitic vol] 6.7 fL Normal 6.6-10.1 [facility] Comment on above: Performed By: #### C BC ####[address] Platelets (Bld) [#/Vol] 571 10*3/uL High 150-450 [facility] Comment on above: Performed By: #### C BC ####[address] RBC (Bld) [#/Vol] 2.67 10*6/uL Low 3.90-5.60 [facility] Comment on above: Performed By: #### C BC ####[address] [place] [address] [facility] WBC (Bld) [#/Vol] 17.7 10*3/uL High 4.1-10.5 [facility] Comment on above: Performed By: #### C BC ####[address] [address] [facility] Glucose Poct Glucometerson 0 07-25-2023 Glucose [Mass/Vol] 161 mg/dL Normal [facility] Comment on above: Result Comment: [facility] Glucose Reference Range is dependent on time and content of last meal. Glucose of more than 200 mg/dL in a nonstressed, ambulatory subject supports the diagnosis of Diabetes Mellitus.PERFORMED BY:[address] [place], [place] [phone] MEDICAL DIRECTORJOSEPH GARCIA M.D. Performed By: #### G LULS ####Point of Care testing, Glucose [Mass/Vol] 145 mg/dL Normal [facility] Comment on above: Result Comment: [facility] Glucose Reference Range is dependent on time and content of last meal. Glucose of more than 200 mg/dL in a nonstressed, ambulatory subject supports the diagnosis of Diabetes Mellitus.PERFORMED BY:[address] [place], [place] [phone] MEDICAL SILVIA GARCIA M.D. Performed By: #### G LULS ####Point of Care testing, Glucose [Mass/Vol] 112 mg/dL Normal [facility] Comment on above: Result Comment: [facility] Glucose Reference Range is dependent on time and content of last meal. Glucose of more than 200 mg/dL in a nonstressed, ambulatory subject supports the diagnosis of Diabetes Mellitus.PERFORMED BY:[address] [place], [place] [phone] MEDICAL SILVIA GARCIA M.D. Performed By: #### G LULS ####Point of Care testing, Renal Function Panelon 07-24 Albumin [Mass/Vol] 2.3 g/dL Low 3.5-5.7 [facility] Comment on above: Performed By: #### R ENAL ####[facility] [id number] [place] [address] [facility] Anion gap [Moles/Vol] 10.1 mmol/L Normal 6.0-15.0 [facility] Comment on above: Performed By: #### R ENAL ####[address] [place] [address] [facility] Calcium [Mass/Vol] 7.3 mg/dL Low 8.6-10.3 [facility] Comment on above: Performed By: #### R ENAL ####[address] [address] [facility] Chloride [Moles/Vol] 96 mmol/L Low 98-107 [facility] Comment on above: Performed By: #### R ENAL ####[address] [place] [address] [facility] CO2 [Moles/Vol] 29.3 mmol/L Normal 21.0-31.0 [facility] Comment on above: Performed By: #### R ENAL ####[address] [place] [address] [facility] Creatinine [Mass/Vol] 3.28 mg/dL Significan t change up 0.70-1.30 [facility] Comment on above: Performed By: #### R ENAL ####[address] [place] [address] [facility] Creatinine Clr Calc Pharmacy 24.03 Normal [facility] Comment on above: Result Comment: PERF ORMED BY:[address] [address] [address] [place], [place] [phone] MEDICAL DIRECTORJOSEPH GARCIA M.D. Performed By: #### R ENAL ####[address] [address] [place] GFR/1.73 sq M.predicted MDRD (S/P/Bld) [Vol rate/Area] 19.345 mL/min/{1.73_m2} Normal [facility] Comment on above: Performed By: #### R ENAL ####[address] [place] [address] [facility] Glucose [Mass/Vol] 84 mg/dL Normal 70-100 [facility] Comment on above: Result Comment: [facility] Glucose Reference Range is dependent on time and content of last meal. Glucose of more than 200 mg/dL in a nonstressed, ambulatory subject supports the diagnosis of Diabetes Mellitus. ADA recommended reference range Performed By: #### R ENAL ####[address] [address] [facility] Phosphate [Mass/Vol] 5.1 mg/dL High 2.5-4.5 [facility] Comment on above: Performed By: #### R ENAL ####[id number] [facility] Potassium [Moles/Vol] 4.4 mmol/L Normal 3.5-5.1 [facility] Comment on above: Performed By: #### R ENAL ####[address] [address] [facility] Sodium [Moles/Vol] 131 mmol/L Low 136-145 [facility] Comment on above: Performed By: #### R ENAL ####[address] [address] [facility] Urea nitrogen [Mass/Vol] 23 mg/dL Normal 7-25 [facility] Comment on above: Performed By: #### R ENAL ####[address] [address] [place] Glucose Poct Glucometerson 0 07-24-2023 Glucose [Mass/Vol] 140 mg/dL Normal [facility] Comment on above: Result Comment: [facility] Glucose Reference Range is dependent on time and content of last meal. Glucose of more than 200 mg/dL in a nonstressed, ambulatory subject supports the diagnosis of Diabetes Mellitus.PERFORMED BY:[facility] [place], [place] [phone] MEDICAL DIRECTORJOSEPH GARCIA M.D. Performed By: #### G LULS ####Point of Care testing, Commemt1 Glu2: Cleaned Meter [facility] Comment on above: Result Comment: PERF ORMED BY:[address] [address] [address] [place], [place] [phone] MEDICAL DIRECTORJOSEPH GARCIA M.D. Performed By: #### G LULS ####Point of Care testing, Glucose [Mass/Vol] 74 mg/dL Normal [facility] Comment on above: Result Comment: [place] om Glucose Reference Range is dependent on time and content of last meal. Glucose of more than 200 mg/dL in a nonstressed, ambulatory subject supports the diagnosis of Diabetes Mellitus. Performed By: #### G LULS ####Point of Care testing, Commemt1 Glu2: Cleaned Meter [facility] Comment on above: Result Comment: PERF ORMED BY:[address] [place], [place] [phone] MEDICAL DIRECTORJOSEPH GARCIA M.D. Performed By: #### G LULS ####Point of Care testing, Glucose [Mass/Vol] 158 mg/dL Normal [facility] Comment on above: Result Comment: [place] om Glucose Reference Range is dependent on time and content of last meal. Glucose of more than 200 mg/dL in a nonstressed, ambulatory subject supports the diagnosis of Diabetes Mellitus. Performed By: #### G LULS ####Point of Care testing, Commemt1 Glu2: Cleaned Meter [facility] Comment on above: Result Comment: PERF ORMED BY:[address] [address] [place], [place] [phone] MEDICAL SILVIA GARCIA M.D. Performed By: #### G LULS ####Point of Care testing, Glucose [Mass/Vol] 111 mg/dL Normal [facility] Comment on above: Result Comment: [place] om Glucose Reference Range is dependent on time and content of last meal. Glucose of more than 200 mg/dL in a nonstressed, ambulatory subject supports the diagnosis of Diabetes Mellitus. Performed By: #### G VALERY ####Point of Care testing, Renal Function Panelon Albumin [Mass/Vol] 2.3 g/dL Low 3.5-5.7 [facility] Comment on above: Performed By: #### R ENAL ####[facility] [place] [address] [facility] Anion gap [Moles/Vol] 11.5 mmol/L Normal 6.0-15.0 [facility] Comment on above: Performed By: #### R ENAL ####[address] [place] [address] [facility] Calcium [Mass/Vol] 7.2 mg/dL Low 8.6-10.3 [facility] Comment on above: Performed By: #### R ENAL ####[address] [place] [address] [facility] Chloride [Moles/Vol] 98 mmol/L Normal 98-107 [facility] Comment on above: Performed By: #### R ENAL ####[address] [place] [address] [facility] CO2 [Moles/Vol] 28.8 mmol/L Normal 21.0-31.0 [facility] Comment on above: Performed By: #### R ENAL ####[address] [place] [address] [facility] Creatinine [Mass/Vol] 2.77 mg/dL Significan t change up 0.70-1.30 [facility] Comment on above: Performed By: #### R ENAL ####[address] [place] [address] [facility] Creatinine Clr Calc Pharmacy 27.90 Normal [facility] Comment on above: Result Comment: PERF ORMED BY:[id number] [place], [place] [phone] MEDICAL DIRECTORJOSEPH GARCIA M.D. Performed By: #### R ENAL ####[address] [place] [address] [facility] GFR/1.73 sq M.predicted MDRD (S/P/Bld) [Vol rate/Area] 23.694 mL/min/{1.73_m2} Normal [facility] Comment on above: Performed By: #### R ENAL ####[address] [place] [address] [facility] Glucose [Mass/Vol] 94 mg/dL Normal 70-100 [facility] Comment on above: Result Comment: [facility] Glucose Reference Range is dependent on time and content of last meal. Glucose of more than 200 mg/dL in a nonstressed, ambulatory subject supports the diagnosis of Diabetes Mellitus. ADA recommended reference range Performed By: #### R ENAL ####[address] [place] [address] [facility] Phosphate [Mass/Vol] 4.5 mg/dL Normal 2.5-4.5 [facility] Comment on above: Performed By: #### R ENAL ####[address] [place] [address] [facility] Potassium [Moles/Vol] 4.3 mmol/L Normal 3.5-5.1 [facility] Comment on above: Performed By: #### R ENAL ####[address] [place] [address] [facility] Sodium [Moles/Vol] 134 mmol/L Low 136-145 [facility] Comment on above: Performed By: #### R ENAL ####[address] [place] [address] [facility] Urea nitrogen [Mass/Vol] 18 mg/dL Normal 7-25 [facility] Comment on above: Performed By: #### R ENAL ####[address] [place] [address] [facility] Complete Blood Count Auto Di ffon 07-23-2023 Basophils (Bld) [#/Vol] 0.2 10*3/uL Normal 0.0-0.2 [facility] Comment on above: Result Comment: PERF ORMED BY:[address] [place] [phone] MEDICAL DIRECTORJOSEPH GARCIA M.D. Performed By: #### C BC ####[address] [address] [facility] Basophils/100 WBC (Bld) 1.1 % Normal . [facility] Comment on above: Performed By: #### C BC ####[id number] [facility] Eosinophils (Bld) [#/Vol] 0.4 10*3/uL Normal 0.0-0.45 [facility] Comment on above: Performed By: #### C BC ####[id number] [facility] Eosinophils/100 WBC (Bld) 2.2 % Normal . [facility] Comment on above: Performed By: #### C BC ####[id number] [facility] Erythrocyte distribution width (RBC) [Ratio] 17.8 % High 12.0-14.8 [facility] Comment on above: Performed By: #### C BC ####[id number] [facility] Hematocrit (Bld) [Volume fraction] 22.8 % Low 38.8-50.0 [facility] Comment on above: Performed By: #### C BC ####[id number] [facility] Hemoglobin (Bld) [Mass/Vol] 7.8 g/dL Low 13.0-17.0 [facility] Comment on above: Performed By: #### C BC ####[id number] [facility] Lymphocytes (Bld) [#/Vol] 3.0 10*3/uL Normal 1.00-4.8 [facility] Comment on above: Performed By: #### C BC ####[address] Lymphocytes/100 WBC (Bld) 16.4 % Normal . [facility] Comment on above: Performed By: #### C BC ####[address] MCH (RBC) [Entitic mass] 29.7 pg Normal 27.5-35.2 [facility] Comment on above: Performed By: #### C BC ####[address] MCV (RBC) [Entitic vol] 87.0 fL Normal 83.5-101 [facility] Comment on above: Performed By: #### C BC ####[address] Mean Corpuscular HGB Conc 34.1 g/dL Normal 32.5-35.6 [facility] Comment on above: Performed By: #### C BC ####[address] Monocytes (Bld) [#/Vol] 1.3 10*3/uL High 0.0-0.8 [facility] Comment on above: Performed By: #### C BC ####[address] Monocytes/100 WBC (Bld) 7.0 % Normal . [facility] Comment on above: Performed By: #### C BC ####[address] Neutrophils (Bld) [#/Vol] 13.3 10*3/uL High 1.8-7.7 [facility] Comment on above: Performed By: #### C BC ####[address] Neutrophils/100 WBC (Bld) 73.3 % Normal . [facility] Comment on above: Performed By: #### C BC ####[address] NRBC% 0.1 /100{WBC} Normal 0-0.5 [facility] Comment on above: Performed By: #### C BC ####[address] [place] [address] [facility] Platelet mean volume (Bld) [Entitic vol] 7.1 fL Normal 6.6-10.1 [facility] Comment on above: Performed By: #### C BC ####[address] [address] [facility] Platelets (Bld) [#/Vol] 541 10*3/uL High 150-450 [facility] Comment on above: Performed By: #### C BC ####[address] [address] [facility] RBC (Bld) [#/Vol] 2.62 10*6/uL Low 3.90-5.60 [facility] Comment on above: Performed By: #### C BC ####[address] [address] [facility] WBC (Bld) [#/Vol] 18.2 10*3/uL High 4.1-10.5 [facility] Comment on above: Performed By: #### C BC ####[id number] [facility] Glucose Poct Glucometerson 0 07-23-2023 Glucose [Mass/Vol] 167 mg/dL Normal [facility] Comment on above: Result Comment: [facility] Glucose Reference Range is dependent on time and content of last meal. Glucose of more than 200 mg/dL in a nonstressed, ambulatory subject supports the diagnosis of Diabetes Mellitus.PERFORMED BY:[address] [place] [place], [place] [phone] MEDICAL DIRECTORJOSEPH GARCIA M.D. Performed By: #### G VALERY ####Point of Care testing, Glucose [Mass/Vol] 174 mg/dL Normal [facility] Comment on above: Result Comment: [facility] Glucose Reference Range is dependent on time and content of last meal. Glucose of more than 200 mg/dL in a nonstressed, ambulatory subject supports the diagnosis of Diabetes Mellitus.PERFORMED BY:[address] [address] [place], [place] [phone] MEDICAL DIRECTORJOSEPH GARCIA M.D. Performed By: #### G LULS ####Point of Care testing, Commemt1 Glu2: Cleaned Meter Normal [facility] Comment on above: Result Comment: PERF ORMED BY:[place] [address] [place], [place] [phone] MEDICAL DIRECTORJOSEPH GARCIA M.D. Performed By: #### G LULS ####Point of Care testing, Glucose [Mass/Vol] 137 mg/dL Normal [facility] Comment on above: Result Comment: [facility] Glucose Reference Range is dependent on time and content of last meal. Glucose of more than 200 mg/dL in a nonstressed, ambulatory subject supports the diagnosis of Diabetes Mellitus. Performed By: #### G LULS ####Point of Care testing, Renal Function Panelon 07-23 Albumin [Mass/Vol] 2.3 g/dL Low 3.5-5.7 [facility] Comment on above: Performed By: #### R ENAL ####[place] [id number] [facility] Anion gap [Moles/Vol] 11.3 mmol/L Normal 6.0-15.0 [facility] Comment on above: Performed By: #### R ENAL ####[address] [address] [facility] Calcium [Mass/Vol] 7.3 mg/dL Low 8.6-10.3 [facility] Comment on above: Performed By: #### R ENAL ####[address] [address] [facility] Chloride [Moles/Vol] 99 mmol/L Normal 98-107 [facility] Comment on above: Performed By: #### R ENAL ####[place] [id number] [place] CO2 [Moles/Vol] 23.6 mmol/L Normal 21.0-31.0 [facility] Comment on above: Performed By: #### R ENAL ####[address] [address] [facility] Creatinine [Mass/Vol] 3.72 mg/dL Significan t change up 0.70-1.30 [facility] Comment on above: Performed By: #### R ENAL ####[address] [address] [facility] Creatinine Clr Calc Pharmacy 20.87 Normal [facility] Comment on above: Result Comment: PERF ORMED BY:[address] [place], [place] [phone] MEDICAL DIRECTORJOSEPH GARCIA M.D. Performed By: #### R ENAL ####[place] [id number] [facility] GFR/1.73 sq M.predicted MDRD (S/P/Bld) [Vol rate/Area] 16.632 mL/min/{1.73_m2} [facility] Comment on above: Performed By: #### R ENAL ####[place] [id number] [facility] Glucose [Mass/Vol] 118 mg/dL High 70-100 [facility] Comment on above: Result Comment: [place] Glucose Reference Range is dependent on time and content of last meal. Glucose of more than 200 mg/dL in a nonstressed, ambulatory subject supports the diagnosis of Diabetes Mellitus. ADA recommended reference range Performed By: #### R ENAL ####[address] [address] [facility] Phosphate [Mass/Vol] 4.7 mg/dL High 2.5-4.5 [facility] Comment on above: Performed By: #### R ENAL ####[address] [address] [facility] Potassium [Moles/Vol] 3.9 mmol/L Normal 3.5-5.1 [facility] Comment on above: Performed By: #### R ENAL ####[facility] [address] [place] [address] [facility] Sodium [Moles/Vol] 130 mmol/L Low 136-145 [facility] Comment on above: Performed By: #### R ENAL ####[facility] [id number] [place] [address] [facility] Urea nitrogen [Mass/Vol] 25 mg/dL Normal 7-25 [facility] Comment on above: Performed By: #### R ENAL ####[facility] [id number] [place] [address] [facility] Glucose Poct Glucometerson 0 07-22-2023 Glucose [Mass/Vol] 138 mg/dL Normal [facility] Comment on above: Result Comment: [place] Glucose Reference Range is dependent on time and content of last meal. Glucose of more than 200 mg/dL in a nonstressed, ambulatory subject supports the diagnosis of Diabetes Mellitus.PERFORMED BY:[address] [place], [place] [phone] MEDICAL DIRECTORJOSEPH GARCIA M.D. Performed By: #### G LULS ####Point of Care testing, Glucose [Mass/Vol] 108 mg/dL Normal [facility] Comment on above: Result Comment: [facility] Glucose Reference Range is dependent on time and content of last meal. Glucose of more than 200 mg/dL in a nonstressed, ambulatory subject supports the diagnosis of Diabetes Mellitus.PERFORMED BY:[place] [address] [place], [place] [phone] MEDICAL DIRECTORJOSEPH GARCIA M.D. Performed By: #### G LULS ####Point of Care testing, Commemt1 Glu2: Cleaned Meter Normal [facility] Comment on above: Result Comment: PERF ORMED BY:[place] [address] [place], [place] [phone] MEDICAL DIRECTORJOSEPH GARCIA M.D. Performed By: #### G LULS ####Point of Care testing, Glucose [Mass/Vol] 131 mg/dL Normal [facility] Comment on above: Result Comment: [place] om Glucose Reference Range is dependent on time and content of last meal. Glucose of more than 200 mg/dL in a nonstressed, ambulatory subject supports the diagnosis of Diabetes Mellitus. Performed By: #### G LULS ####Point of Care testing, Commemt1 Glu2: Cleaned Meter Normal [facility] Comment on above: Result Comment: PERF ORMED BY:[address] [place], [place] [phone] MEDICAL DIRECTORJOSEPH GARCIA M.D. Performed By: #### G LULS ####Point of Care testing, Glucose [Mass/Vol] 121 mg/dL Normal [facility] Comment on above: Result Comment: [place] om Glucose Reference Range is dependent on time and content of last meal. Glucose of more than 200 mg/dL in a nonstressed, ambulatory subject supports the diagnosis of Diabetes Mellitus. Performed By: #### G LULS ####Point of Care testing, Renal Function Panelon 07-22 Albumin [Mass/Vol] 2.5 g/dL Low 3.5-5.7 [facility] Comment on above: Performed By: #### R ENAL ####[place] [address] [place] [id number] [facility] Anion gap [Moles/Vol] 10.9 mmol/L Normal 6.0-15.0 [facility] Comment on above: Performed By: #### R ENAL ####[facility] [place] [id number] [facility] Calcium [Mass/Vol] 7.5 mg/dL Low 8.6-10.3 [facility] Comment on above: Performed By: #### R ENAL ####[facility] [place] [id number] [facility] Chloride [Moles/Vol] 100 mmol/L Normal 98-107 [facility] Comment on above: Performed By: #### R ENAL ####[facility] [place], [place] [id number] [facility] CO2 [Moles/Vol] 25.1 mmol/L Normal 21.0-31.0 [facility] Comment on above: Performed By: #### R ENAL ####[place] [address] [place] [id number] [facility] Creatinine [Mass/Vol] 2.84 mg/dL Significan t change up 0.70-1.30 [facility] Comment on above: Performed By: #### R ENAL ####[place] [id number] [facility] Creatinine Clr Calc Pharmacy 27.27 Normal [facility] Comment on above: Result Comment: PERF ORMED BY:[address] [place]Tr[place], [place] [phone] MEDICAL DIRECTORJOSEPH GARCIA M.D. Performed By: #### R ENAL ####[place] [id number] [facility] GFR/1.73 sq M.predicted MDRD (S/P/Bld) [Vol rate/Area] 22.995 mL/min/{1.73_m2} [facility] Comment on above: Performed By: #### R ENAL ####[place] [id number] [facility] Glucose [Mass/Vol] 103 mg/dL High 70-100 [facility] Comment on above: Result Comment: [place] Glucose Reference Range is dependent on time and content of last meal. Glucose of more than 200 mg/dL in a nonstressed, ambulatory subject supports the diagnosis of Diabetes Mellitus. ADA recommended reference range Performed By: #### R ENAL ####[place] [id number] [facility] Phosphate [Mass/Vol] 4.0 mg/dL Normal 2.5-4.5 [facility] Comment on above: Performed By: #### R ENAL ####[place] [id number] [facility] Potassium [Moles/Vol] 4.0 mmol/L Normal 3.5-5.1 [facility] Comment on above: Performed By: #### R ENAL ####[address] [address] [facility] Sodium [Moles/Vol] 132 mmol/L Low 136-145 [facility] Comment on above: Performed By: #### R ENAL ####[address] [address] [facility] Urea nitrogen [Mass/Vol] 17 mg/dL Normal 7-25 [facility] Comment on above: Performed By: #### R ENAL ####[address] [address] [facility] Basic Metabolic Panelon 06-27 Anion gap [Moles/Vol] 10.2 mmol/L Normal 6.0-15.0 [facility] Comment on above: Performed By: #### B MP, CRP, FE PRO ####[place] [id number] [facility] Calcium [Mass/Vol] 7.3 mg/dL Low 8.6-10.3 [facility] Comment on above: Performed By: #### B MP, CRP, FE PRO ####[place] [id number] [facility] Chloride [Moles/Vol] 96 mmol/L Low 98-107 [facility] Comment on above: Performed By: #### B MP, CRP, FE PRO ####[address] [address] [facility] CO2 [Moles/Vol] 28.9 mmol/L Normal 21.0-31.0 [facility] Comment on above: Performed By: #### B MP, CRP, FE PRO ####[address] [address] [facility] Creatinine [Mass/Vol] 4.21 mg/dL Significan t change up 0.70-1.30 [facility] Comment on above: Performed By: #### B MP, CRP, FE PRO ####[place] [id number] [place] Creatinine Clr Calc Pharmacy 18.37 Normal [facility] Comment on above: Result Comment: PERF ORMED BY:[address] [place], [place] [phone] MEDICAL DIRECTORJOSEPH GARCIA M.D. Performed By: #### B MP, CRP, FE PRO ####[address] [place] [address] [place] GFR/1.73 sq M.predicted MDRD (S/P/Bld) [Vol rate/Area] 14.338 mL/min/{1.73_m2} [facility] Comment on above: Performed By: #### B MP, CRP, FE PRO ####[place] [place] [address] [place] [address] [facility] Glucose [Mass/Vol] 112 mg/dL High 70-100 [facility] Comment on above: Result Comment: [place] Glucose Reference Range is dependent on time and content of last meal. Glucose of more than 200 mg/dL in a nonstressed, ambulatory subject supports the diagnosis of Diabetes Mellitus. ADA recommended reference range Performed By: #### B MP, CRP, FE PRO ####[address] [address] [facility] Potassium [Moles/Vol] 4.1 mmol/L Normal 3.5-5.1 [facility] Comment on above: Performed By: #### B MP, CRP, FE PRO ####[address] [address] [facility] Sodium [Moles/Vol] 131 mmol/L Low 136-145 [facility] Comment on above: Performed By: #### B MP, CRP, FE PRO ####[place] [place] [address] [place] [address] [facility] Urea nitrogen [Mass/Vol] 34 mg/dL High 7-25 [facility] Comment on above: Performed By: #### B MP, CRP, FE PRO ####[place] [place] [place] [address] [place] C-Reactive Proteinon 024 C-Reactive Protein 8.6 mg/dL High 0.0-0.5 [facility] Comment on above: Result Comment: PERF ORMED BY:[place] [address] SHIVA LOYATracyLUZ [place], [place] [phone] MEDICAL DIRECTORJOSEPH GARCIA M.D. Performed By: #### B MP, CRP, FE PRO ####[address] [address] [facility] FE PROon 07-21-2023 % Iron Saturation 27.0 % Normal 20-50 [facility] Comment on above: Performed By: #### B MP, CRP, FE PRO ####[address] [address] [facility] Ferritin [Mass/Vol] 1089.8 ng/mL High 23.9-336.2 [facility] Comment on above: Result Comment: PERF ORMED BY:[address] LOYATracyLUZ [place], [place] [phone] MEDICAL DIRECTORJOSEPH GARCIA M.D. Performed By: #### B MP, CRP, FE PRO ####[address] [address] [facility] Iron [Mass/Vol] 50 ug/dL Normal 50-212 [facility] Comment on above: Performed By: #### B MP, CRP, FE PRO ####[address] [address] [facility] Total Iron Binding Capacity 185 ug/dL Low 255-450 [facility] Comment on above: Performed By: #### B MP, CRP, FE PRO ####[address] [address] [facility] Transferrin [Mass/Vol] 132 mg/dL Low 203-362 [facility] Comment on above: Performed By: #### B MP, CRP, FE PRO ####[address] [address] [facility] Glucose Poct Glucometerson 0 07-21-2023 Commemt1 Glu2: Cleaned Meter Normal [facility] Comment on above: Result Comment: PERF ORMED BY:[place] [address] [place], [place] [phone] MEDICAL DIRECTORJOSEPH GARCIA M.D. Performed By: #### G LULS ####Point of Care testing, Glucose [Mass/Vol] 155 mg/dL Normal [facility] Comment on above: Result Comment: [place] om Glucose Reference Range is dependent on time and content of last meal. Glucose of more than 200 mg/dL in a nonstressed, ambulatory subject supports the diagnosis of Diabetes Mellitus. Performed By: #### G LULS ####Point of Care testing, Commemt1 Glu2: Cleaned Meter [facility] Comment on above: Result Comment: PERF ORMED BY:[place] [address] [place], [place] [phone] MEDICAL DIRECTORJOSEPH GARCIA M.D. Performed By: #### G LULS ####Point of Care testing, Glucose [Mass/Vol] 161 mg/dL Normal [facility] Comment on above: Result Comment: [place] om Glucose Reference Range is dependent on time and content of last meal. Glucose of more than 200 mg/dL in a nonstressed, ambulatory subject supports the diagnosis of Diabetes Mellitus. Performed By: #### G LULS ####Point of Care testing, Commemt1 Glu2: Cleaned Meter [facility] Comment on above: Result Comment: PERF ORMED BY:[address] [place], [place] [phone] MEDICAL SILVIA GARCIA M.D. Performed By: #### G LULS ####Point of Care testing, Glucose [Mass/Vol] 121 mg/dL Normal [facility] Comment on above: Result Comment: [place] om Glucose Reference Range is dependent on time and content of last meal. Glucose of more than 200 mg/dL in a nonstressed, ambulatory subject supports the diagnosis of Diabetes Mellitus. Performed By: #### G LULS ####Point of Care testing, Scan and CBCon 07-21-2023 Acanthocytes Slight Normal [facility] Comment on above: Performed By: #### S CAN CBC ####[place] [id number] [facility] Anisocytosis Ql (Bld) Moderate Normal [facility] Comment on above: Performed By: #### S CAN CBC ####[address] [address] [facility] Basophils (Bld) [#/Vol] 0.1 10*3/uL Normal 0.0-0.2 [facility] Comment on above: Performed By: #### S CAN CBC ####[place] [id number] [facility] Basophils/100 WBC (Bld) 0.8 % Normal . [facility] Comment on above: Performed By: #### S CAN CBC ####[place] [id number] [facility] Eosinophils (Bld) [#/Vol] 0.5 10*3/uL High 0.0-0.45 [facility] Comment on above: Performed By: #### S CAN CBC ####[place] [id number] [facility] Eosinophils/100 WBC (Bld) 2.7 % Normal . [facility] Comment on above: Performed By: #### S CAN CBC ####[place] [id number] [facility] Erythrocyte distribution width (RBC) [Ratio] 17.3 % High 12.0-14.8 [facility] Comment on above: Performed By: #### S CAN CBC ####[place] [id number] [facility] Hematocrit (Bld) [Volume fraction] 22.6 % Low 38.8-50.0 [facility] Comment on above: Performed By: #### S CAN CBC ####[place] [id number] [facility] Hemoglobin (Bld) [Mass/Vol] 7.7 g/dL Low 13.0-17.0 [facility] Comment on above: Performed By: #### S CAN CBC ####[address] Hypochromasia Slight Normal [facility] Comment on above: Performed By: #### S CAN CBC ####[address] Lymphocytes (Bld) [#/Vol] 3.0 10*3/uL Normal 1.00-4.8 [facility] Comment on above: Performed By: #### S CAN CBC ####[address] Lymphocytes/100 WBC (Bld) 15.3 % Normal . [facility] Comment on above: Performed By: #### S CAN CBC ####[address] MCH (RBC) [Entitic mass] 29.4 pg Normal 27.5-35.2 [facility] Comment on above: Performed By: #### S CAN CBC ####[address] MCV (RBC) [Entitic vol] 85.8 fL Normal 83.5-101 [facility] Comment on above: Performed By: #### S CAN CBC ####[address] Mean Corpuscular HGB Conc 34.2 g/dL Normal 32.5-35.6 [facility] Comment on above: Performed By: #### S CAN CBC ####[address] Microcytosis Moderate Normal [facility] Comment on above: Performed By: #### S CAN CBC ####[address] Monocytes (Bld) [#/Vol] 1.6 10*3/uL High 0.0-0.8 [facility] Comment on above: Performed By: #### S CAN CBC ####[address] Monocytes/100 WBC (Bld) 8.0 % Normal . [facility] Comment on above: Performed By: #### S CAN CBC ####[place] [place] [address] [facility] Neutrophils (Bld) [#/Vol] 14.6 10*3/uL High 1.8-7.7 [facility] Comment on above: Performed By: #### S CAN CBC ####[address] [address] [facility] Neutrophils/100 WBC (Bld) 73.2 % Normal . [facility] Comment on above: Performed By: #### S CAN CBC ####[address] [address] [facility] NRBC% 0.0 /100{WBC} Normal 0-0.5 [facility] Comment on above: Performed By: #### S CAN CBC ####[address] [address] [facility] Ovalocytes Slight Normal [facility] Comment on above: Performed By: #### S CAN CBC ####[address] [address] [facility] Platelet Estimate Increased Normal Normal [facility] Comment on above: Performed By: #### S CAN CBC ####[address] [address] [facility] Platelet mean volume (Bld) [Entitic vol] 7.0 fL Normal 6.6-10.1 [facility] Comment on above: Performed By: #### S CAN CBC ####[address] [address] [facility] Platelet Morphology Normal Normal Normal [facility] Comment on above: Result Comment: PERF ORMED BY:[address] [place], [place] [phone] MEDICAL SILVIA GARCIA M.D. Performed By: #### S CAN CBC ####[address] [address] [facility] Platelets (Bld) [#/Vol] 489 10*3/uL High 150-450 [facility] Comment on above: Performed By: #### S CAN CBC ####[address] [place] [place] [address] [facility] Poikilocytosis Slight Normal [facility] Comment on above: Performed By: #### S CAN CBC ####[address] [address] [facility] Polychromasia Slight Normal [facility] Comment on above: Performed By: #### S CAN CBC ####[place] [id number] [facility] RBC (Bld) [#/Vol] 2.64 10*6/uL Low 3.90-5.60 [facility] Comment on above: Performed By: #### S CAN CBC ####[place] [id number] [facility] Schistocytes Slight Normal [facility] Comment on above: Performed By: #### S CAN CBC ####[place] [id number] [facility] WBC (Bld) [#/Vol] 19.9 10*3/uL High 4.1-10.5 [facility] Comment on above: Performed By: #### S CAN CBC ####[place] [id number] [facility] Basic Metabolic Panelon 2 Anion gap [Moles/Vol] 9.6 mmol/L Normal 6.0-15.0 [facility] Comment on above: Performed By: #### S CAN CBC, BMP ####[place] [id number] [facility] Calcium [Mass/Vol] 7.3 mg/dL Low 8.6-10.3 [facility] Comment on above: Performed By: #### S CAN CBC, BMP ####[place] [id number] [facility] Chloride [Moles/Vol] 97 mmol/L Low 98-107 [facility] Comment on above: Performed By: #### S CAN CBC, BMP ####[address] [place] [address] [facility] CO2 [Moles/Vol] 29.3 mmol/L Normal 21.0-31.0 [facility] Comment on above: Performed By: #### S CAN CBC, BMP ####[facility] [place] [address] [facility] Creatinine [Mass/Vol] 3.39 mg/dL Significan t change up 0.70-1.30 [facility] Comment on above: Performed By: #### S CAN CBC, BMP ####[place] [address] [place] [id number] [place] Creatinine Clr Calc Pharmacy 22.74 Normal [facility] Comment on above: Result Comment: PERF ORMED BY:[address] [place]ikoTracyLUZ [place], [place] [phone] MEDICAL SILVIA GARCIA M.D. Performed By: #### S CAN CBC, BMP ####[place] [id number] [place] GFR/1.73 sq M.predicted MDRD (S/P/Bld) [Vol rate/Area] 18.594 mL/min/{1.73_m2} [facility] Comment on above: Performed By: #### S CAN CBC, BMP ####[place] [id number] [facility] Glucose [Mass/Vol] 145 mg/dL High 70-100 [facility] Comment on above: Result Comment: [place] Glucose Reference Range is dependent on time and content of last meal. Glucose of more than 200 mg/dL in a nonstressed, ambulatory subject supports the diagnosis of Diabetes Mellitus. ADA recommended reference range Performed By: #### S CAN CBC, BMP ####[place] [address] [place] [id number] [place] Potassium [Moles/Vol] 3.9 mmol/L Normal 3.5-5.1 [facility] Comment on above: Performed By: #### S CAN CBC, BMP ####[place] [id number] [place] Sodium [Moles/Vol] 132 mmol/L Low 136-145 [facility] Comment on above: Performed By: #### S CAN CBC, BMP ####[address] Urea nitrogen [Mass/Vol] 27 mg/dL High 12-17 [facility] Comment on above: Performed By: #### S CAN CBC, BMP ####[address] Creatinine, Urine (Random)on 07-20-2023 Creatinine, Urine (Random) 200.0 mg/dL High 14.0-26.0 [facility] Comment on above: Performed By: #### U NA, CUU, UCREA, ADDONUAPLUS ####[address] Dipstick and Microscopicon 0 07-20-2023 Appearance (U) Turbid Critically abnormal Clear [facility] Comment on above: Order Comment: Name Collection Type:: Clean-Voided Midstream Performed By: #### U NA, CUU, UCREA, ADDONUAPLUS ####[address] Bacteria,Urine None Seen Normal None Seen [facility] Comment on above: Order Comment: Name Collection Type:: Clean-Voided Midstream Performed By: #### U NA, CUU, UCREA, ADDONUAPLUS ####[address] Bilirubin,Urine 2+ High Negative [facility] Comment on above: Order Comment: Name Collection Type:: Clean-Voided Midstream Performed By: #### U NA, CUU, UCREA, ADDONUAPLUS ####[address] Coarse Granular Casts,Urine 0-1 Normal 0-1 [facility] Comment on above: Order Comment: Name Collection Type:: Clean-Voided Midstream Performed By: #### U NA, CUU, UCREA, ADDONUAPLUS ####[address] [place] [address] [facility] Color (U) [place] Critically abnormal Yellow [facility] Comment on above: Order Comment: Name Collection Type:: Clean-Voided Midstream Performed By: #### U NA, CUU, UCREA, ADDONUAPLUS ####[address] [address] [place] [facility] [facility] Glucose Ql (U) 100 mg/dL High Normal [facility] Comment on above: Order Comment: Name Collection Type:: Clean-Voided Midstream Performed By: #### U NA, CUU, UCREA, ADDONUAPLUS ####[address] [address] [facility] Hyaline Casts,Urine 1-2 High 0-1 [facility] Comment on above: Order Comment: Name Collection Type:: Clean-Voided Midstream Performed By: #### U NA, CUU, UCREA, ADDONUAPLUS ####[place] [id number] [facility] Ketones Ql (U) Trace High Negative [facility] Comment on above: Order Comment: Name Collection Type:: Clean-Voided Midstream Performed By: #### U NA, CUU, UCREA, ADDONUAPLUS ####[address] [address] [facility] Leukocyte esterase Test strip Ql (U) 2+ High Negative [facility] Comment on above: Order Comment: Name Collection Type:: Clean-Voided Midstream Performed By: #### U NA, CUU, UCREA, ADDONUAPLUS ####[address] [address] [place] Nitrite,Urine Positive High Negative [facility] Comment on above: Order Comment: Name Collection Type:: Clean-Voided Midstream Performed By: #### U NA, CUU, UCREA, ADDONUAPLUS ####[address] [address] [facility] Occult Blood,Urine 3+ High Negative [facility] Comment on above: Order Comment: Name Collection Type:: Clean-Voided Midstream Result Comment: PERF ORMED BY:[place] [address] [place], [place] [phone] MEDICAL DIRECTORJOSEPH GARCIA M.D. Performed By: #### U NA, CUU, UCREA, ADDONUAPLUS ####[address] [address] [facility] Other Casts,Urine None Seen Normal None Seen [facility] Comment on above: Order Comment: Name Collection Type:: Clean-Voided Midstream Result Comment: PERF ORMED BY:[place] [address] [place] [place], [place] [phone] MEDICAL DIRECTORJOSEPH GARCIA M.D. Performed By: #### U NA, CUU, UCREA, ADDONUAPLUS ####[place] [id number] [facility] pH (U) 5.0 [pH] Normal 5.0-9.0 [facility] Comment on above: Order Comment: Name Collection Type:: Clean-Voided Midstream Performed By: #### U NA, CUU, UCREA, ADDONUAPLUS ####[address] [address] [facility] Protein (U) [Mass/Vol] 300 mg/dL High Negative [facility] Comment on above: Order Comment: Name Collection Type:: Clean-Voided Midstream Performed By: #### U NA, CUU, UCREA, ADDONUAPLUS ####[address] [address] [facility] RBC,Urine Innumerable High 0-4 [facility] Comment on above: Order Comment: Name Collection Type:: Clean-Voided Midstream Performed By: #### U NA, CUU, UCREA, ADDONUAPLUS ####[address] [address] [facility] Red Blood Cell Casts,Urine 0-1 High None Seen [facility] Comment on above: Order Comment: Name Collection Type:: Clean-Voided Midstream Performed By: #### U NA, CUU, UCREA, ADDONUAPLUS ####[place] [id number] [facility] Specificy [place],Urine 1.030 Normal 1.001-1.03 0 [facility] Comment on above: Order Comment: Name Collection Type:: Clean-Voided Midstream Performed By: #### U NA, CUU, UCREA, ADDONUAPLUS ####[address] Squamous Epithelial Cell,Urine 3-4 High 0-2 [facility] Comment on above: Order Comment: Name Collection Type:: Clean-Voided Midstream Performed By: #### U NA, CUU, UCREA, ADDONUAPLUS ####[address] Urobilinogen,Urine Normal Normal Normal [facility] Comment on above: Order Comment: Name Collection Type:: Clean-Voided Midstream Performed By: #### U NA, CUU, UCREA, ADDONUAPLUS ####[place] [id number] [facility] WBC,Urine 20-49 High 0-4 [facility] Comment on above: Order Comment: Name Collection Type:: Clean-Voided Midstream Performed By: #### U NA, CUU, UCREA, ADDONUAPLUS ####[place] [id number] [facility] Drug Screen,Urineon 07-20-19 24 Amphetamine Screen,Urine Negative Normal Negative [facility] Comment on above: Order Comment: UDS t o be sent to [facility] Performed By: #### U RDS ####[address] Barbiturate Screen,Urine Negative Normal Negative [facility] Comment on above: Order Comment: UDS t o be sent to [facility] Performed By: #### U RDS ####[address] Benzodiazepines Screen,Urine Positive High Negative [facility] Comment on above: Order Comment: UDS t o be sent to [facility] Performed By: #### U RDS ####[address] [address] [facility] Cannabinoid Screen,Urine Normal Negative [facility] Comment on above: Order Comment: UDS t o be sent to [facility] Result Comment: Test ing done at [facility] These are unconfirmed results and should not be used for legal purposes. Drug Cut-Off Concentration: AMPH 1000 ng/mL KO 200 ng/mL TEDDY 200 ng/mL COCM 300 ng/mL OP 300 ng/mL PCP 25 ng/mL THC 20 ng/mLPERFORMED BY:[place] [address] [place], [place] [phone] MEDICAL DIRECTORJOSEPH GARCIA M.D. Performed By: #### U RDS ####[place] [id number] [facility] Cocaine Screen,Urine Negative Normal Negative [facility] Comment on above: Order Comment: UDS t o be sent to [facility] Performed By: #### U RDS ####[address] [address] [facility] Opiate Screen,Urine Normal Negative [facility] Comment on above: Order Comment: UDS t o be sent to [facility] Result Comment: Test ing done at [facility] Performed By: #### U RDS ####[address] [address] [facility] Phencyclidine Screen,Urine Negative Normal Negative [facility] Comment on above: Order Comment: UDS t o be sent to [facility] Performed By: #### U RDS ####[address] [address] [facility] Glucose Poct Glucometerson 0 07-20-2023 Glucose [Mass/Vol] 157 mg/dL Normal [facility] Comment on above: Result Comment: [facility] Glucose Reference Range is dependent on time and content of last meal. Glucose of more than 200 mg/dL in a nonstressed, ambulatory subject supports the diagnosis of Diabetes Mellitus.PERFORMED BY:[place] [address] [place], [place] [phone] MEDICAL SILVIA GARCIA M.D. Performed By: #### G LULS ####Point of Care testing, Commemt1 Glu2: Cleaned Meter [facility] Comment on above: Result Comment: PERF ORMED BY:[place] [address] [place], [place] [phone] MEDICAL SILVIA GARCIA M.D. Performed By: #### G LULS ####Point of Care testing, Glucose [Mass/Vol] 134 mg/dL Normal [facility] Comment on above: Result Comment: [place] [facility] Glucose Reference Range is dependent on time and content of last meal. Glucose of more than 200 mg/dL in a nonstressed, ambulatory subject supports the diagnosis of Diabetes Mellitus. Performed By: #### G LULS ####Point of Care testing, Commemt1 Glu2: Cleaned Meter [facility] Comment on above: Result Comment: PERF ORMED BY:[place] [address] [place] [place], [place] [phone] MEDICAL SILVIA GARCIA M.D. Performed By: #### G LULS ####Point of Care testing, Glucose [Mass/Vol] 138 mg/dL Normal [facility] Comment on above: Result Comment: [place] [facility] Glucose Reference Range is dependent on time and content of last meal. Glucose of more than 200 mg/dL in a nonstressed, ambulatory subject supports the diagnosis of Diabetes Mellitus. Performed By: #### G LULS ####Point of Care testing, Glucose [Mass/Vol] 152 mg/dL Normal [facility] Comment on above: Result Comment: [place] [facility] Glucose Reference Range is dependent on time and content of last meal. Glucose of more than 200 mg/dL in a nonstressed, ambulatory subject supports the diagnosis of Diabetes Mellitus.PERFORMED BY:[place] [address] [place], [place] [phone] MEDICAL SILVIA GARCIA M.D. Performed By: #### G LULS ####Point of Care testing, Scan and CBCon 07-20-2023 Anisocytosis Ql (Bld) Slight Normal [facility] Comment on above: Performed By: #### S CAN CBC, BMP ####[facility] [id number] [place] [id number] [facility] Basophils (Bld) [#/Vol] 0.2 10*3/uL Normal 0.0-0.2 [facility] Comment on above: Performed By: #### S CAN CBC, BMP ####[address] Basophils/100 WBC (Bld) 0.9 % Normal . [facility] Comment on above: Performed By: #### S CAN CBC, BMP ####[address] Eosinophils (Bld) [#/Vol] 0.4 10*3/uL Normal 0.0-0.45 [facility] Comment on above: Performed By: #### S CAN CBC, BMP ####[address] Eosinophils/100 WBC (Bld) 2.0 % Normal . [facility] Comment on above: Performed By: #### S CAN CBC, BMP ####[address] Erythrocyte distribution width (RBC) [Ratio] 17.1 % High 12.0-14.8 [facility] Comment on above: Performed By: #### S CAN CBC, BMP ####[place] [phone] [facility] Hematocrit (Bld) [Volume fraction] 23.7 % Low 38.8-50.0 [facility] Comment on above: Performed By: #### S CAN CBC, BMP ####[place] [id number] [facility] Hemoglobin (Bld) [Mass/Vol] 8.2 g/dL Low 13.0-17.0 [facility] Comment on above: Performed By: #### S CAN CBC, BMP ####[address] Lymphocytes (Bld) [#/Vol] 2.5 10*3/uL Normal 1.00-4.8 [facility] Comment on above: Performed By: #### S CAN CBC, BMP ####[address] Lymphocytes/100 WBC (Bld) 12.3 % Normal . [facility] Comment on above: Performed By: #### S CAN CBC, BMP ####[address] MCH (RBC) [Entitic mass] 29.4 pg Normal 27.5-35.2 [facility] Comment on above: Performed By: #### S CAN CBC, BMP ####[address] MCV (RBC) [Entitic vol] 85.3 fL Normal 83.5-101 [facility] Comment on above: Performed By: #### S CAN CBC, BMP ####[address] Mean Corpuscular HGB Conc 34.5 g/dL Normal 32.5-35.6 [facility] Comment on above: Performed By: #### S CAN CBC, BMP ####[address] Microcytosis Slight Normal [facility] Comment on above: Performed By: #### S CAN CBC, BMP ####[address] Monocytes (Bld) [#/Vol] 1.8 10*3/uL High 0.0-0.8 [facility] Comment on above: Performed By: #### S CAN CBC, BMP ####[address] Monocytes/100 WBC (Bld) 8.8 % Normal . [facility] Comment on above: Performed By: #### S CAN CBC, BMP ####[address] [address] [facility] Neutrophils (Bld) [#/Vol] 15.2 10*3/uL High 1.8-7.7 [facility] Comment on above: Performed By: #### S CAN CBC, BMP ####[place] [address] [place] [address] [facility] Neutrophils/100 WBC (Bld) 76.0 % Normal . [facility] Comment on above: Performed By: #### S CAN CBC, BMP ####[place] [address] [place] [address] [facility] NRBC% 0.0 /100{WBC} Normal 0-0.5 [facility] Comment on above: Performed By: #### S CAN CBC, BMP ####[address] [address] [facility] Platelet Estimate Increased Normal Normal [facility] Comment on above: Performed By: #### S CAN CBC, BMP ####[place] [phone] [facility] Platelet mean volume (Bld) [Entitic vol] 7.1 fL Normal 6.6-10.1 [facility] Comment on above: Performed By: #### S CAN CBC, BMP ####[place] [phone] [facility] Platelet Morphology Normal Normal Normal [facility] Comment on above: Result Comment: PERF ORMED BY:[address] [place], [place] [phone] MEDICAL DIRECTORJOSEPH GARCIA M.D. Performed By: #### S CAN CBC, BMP ####[address] [address] [facility] Platelets (Bld) [#/Vol] 467 10*3/uL High 150-450 [facility] Comment on above: Performed By: #### S CAN CBC, BMP ####[place] [address] [place] [address] [facility] Polychromasia Slight Normal [facility] Comment on above: Performed By: #### S CAN CBC, BMP ####[place] [address] [place] [id number] [facility] RBC (Bld) [#/Vol] 2.78 10*6/uL Low 3.90-5.60 [facility] Comment on above: Performed By: #### S CAN CBC, BMP ####[place] [phone] [facility] WBC (Bld) [#/Vol] 20.0 10*3/uL High 4.1-10.5 [facility] Comment on above: Performed By: #### S CAN CBC, BMP ####[place] [phone] [facility] Sodium, Urine (Random)on Sodium (U) [Moles/Vol] 19 mmol/L Normal [facility] Comment on above: Result Comment: No r eference range establishedPERFORMED BY:[address] [place], [place] [phone] MEDICAL DIRECTORJOSEPH GARCIA M.D. Performed By: #### U NA, CUU, UCREA, ADDONUAPLUS ####[address] Urine Cultureon 07-20-2023 Bacteria identified Cx Nom (U) Normal [facility] Comment on above: Performed By: #### U NA, CUU, UCREA, ADDONUAPLUS ####[place] [phone] [facility] Basic Metabolic Panelon 06-27 Anion gap [Moles/Vol] 11.8 mmol/L Normal 6.0-15.0 [facility] Comment on above: Performed By: #### B MP, DIFF CBC ####[place] [phone] [facility] Calcium [Mass/Vol] 7.2 mg/dL Low 8.6-10.3 [facility] Comment on above: Performed By: #### B MP, DIFF CBC ####[address] [place] [address] [facility] Chloride [Moles/Vol] 97 mmol/L Low 98-107 [facility] Comment on above: Performed By: #### B MP, DIFF CBC ####[place] [address] [place] [id number] [facility] CO2 [Moles/Vol] 28.9 mmol/L Normal 21.0-31.0 [facility] Comment on above: Performed By: #### B MP, DIFF CBC ####[place] [phone] [facility] Creatinine [Mass/Vol] 3.98 mg/dL Significan t change up 0.70-1.30 [facility] Comment on above: Performed By: #### B MP, DIFF CBC ####[place] [address] [place] [id number] [facility] Creatinine Clr Calc Pharmacy 19.32 Normal [facility] Comment on above: Result Comment: PERF ORMED BY:[address] [place], [place] [phone] MEDICAL DIRECTORJOSEPH GARCIA M.D. Performed By: #### B MP, DIFF CBC ####[place] [phone] [facility] GFR/1.73 sq M.predicted MDRD (S/P/Bld) [Vol rate/Area] 15.337 mL/min/{1.73_m2} Normal [facility] Comment on above: Performed By: #### B MP, DIFF CBC ####[place] [phone] [facility] Glucose [Mass/Vol] 137 mg/dL High 70-100 [facility] Comment on above: Result Comment: [place] Glucose Reference Range is dependent on time and content of last meal. Glucose of more than 200 mg/dL in a nonstressed, ambulatory subject supports the diagnosis of Diabetes Mellitus. ADA recommended reference range Performed By: #### B MP, DIFF CBC ####[place] [phone] [facility] Potassium [Moles/Vol] 4.7 mmol/L Normal 3.5-5.1 [facility] Comment on above: Performed By: #### B MP, DIFF CBC ####[place] [phone] [facility] Sodium [Moles/Vol] 133 mmol/L Low 136-145 [facility] Comment on above: Performed By: #### B MP, DIFF CBC ####[place] [phone] [facility] Urea nitrogen [Mass/Vol] 42 mg/dL High 7-25 [facility] Comment on above: Performed By: #### B MP, DIFF CBC ####[place] [phone] [facility] Diff and CBCon 07-19-2023 Anisocytosis Ql (Bld) Slight Normal [facility] Comment on above: Performed By: #### B MP, DIFF CBC ####[place] [phone] [facility] Band form neutrophils/100 WBC (Bld) 2 % Normal 0-5 [facility] Comment on above: Performed By: #### B MP, DIFF CBC ####[place] [phone] [facility] Basophils/100 WBC (Bld) 1 % Normal 0-2 [facility] Comment on above: Performed By: #### B MP, DIFF CBC ####[place] [phone] [facility] Eosinophils/100 WBC (Bld) 1 % Normal 1-3 [facility] Comment on above: Performed By: #### B MP, DIFF CBC ####[place] [phone] [facility] Erythrocyte distribution width (RBC) [Ratio] 16.9 % High 12.0-14.8 [facility] Comment on above: Performed By: #### B MP, DIFF CBC ####[place] [phone] [facility] Hematocrit (Bld) [Volume fraction] 24.2 % Low 38.8-50.0 [facility] Comment on above: Performed By: #### B MP, DIFF CBC ####[place] [phone] [facility] Hemoglobin (Bld) [Mass/Vol] 8.4 g/dL Low 13.0-17.0 [facility] Comment on above: Performed By: #### B MP, DIFF CBC ####[place] [phone] [facility] Lymphocytes/100 WBC (Bld) 2 % Low 18-42 [facility] Comment on above: Performed By: #### B MP, DIFF CBC ####[place] [phone] [facility] MCH (RBC) [Entitic mass] 29.3 pg Normal 27.5-35.2 [facility] Comment on above: Performed By: #### B MP, DIFF CBC ####[address] MCV (RBC) [Entitic vol] 84.6 fL Normal 83.5-101 [facility] Comment on above: Performed By: #### B MP, DIFF CBC ####[address] Mean Corpuscular HGB Conc 34.7 g/dL Normal 32.5-35.6 [facility] Comment on above: Performed By: #### B MP, DIFF CBC ####[place] [phone] [facility] Metamyelocytes 1 % High 0-0 [facility] Comment on above: Performed By: #### B MP, DIFF CBC ####[place] [phone] [facility] Microcytosis Slight Normal [facility] Comment on above: Performed By: #### B MP, DIFF CBC ####[place] [phone] [facility] Monocytes/100 WBC (Bld) 7 % Normal 2-11 [facility] Comment on above: Performed By: #### B MP, DIFF CBC ####[place] [id number] [facility] Myelocytes 2 % High 0-0 [facility] Comment on above: Performed By: #### B MP, DIFF CBC ####[place] [phone] [facility] Platelet Estimate Increased Normal Normal [facility] Comment on above: Performed By: #### B MP, DIFF CBC ####[place] [phone] [facility] Platelet mean volume (Bld) [Entitic vol] 7.3 fL Normal 6.6-10.1 [facility] Comment on above: Result Comment: PERF ORMED BY:[address] [place] [place], [place] [phone] MEDICAL DIRECTORJOSEPH GARCIA M.D. Performed By: #### B MP, DIFF CBC ####[place] [phone] [facility] Platelet Morphology Normal Normal Normal [facility] Comment on above: Result Comment: PERF ORMED BY:[address] LOYATracyLUZ [place], [place] [phone] MEDICAL DIRECTORJOSEPH GARCIA M.D. Performed By: #### B MP, DIFF CBC ####[place] [phone] [facility] Platelets (Bld) [#/Vol] 467 10*3/uL High 150-450 [facility] Comment on above: Performed By: #### B MP, DIFF CBC ####[place] [phone] [facility] Polychromasia Slight Normal [facility] Comment on above: Performed By: #### B MP, DIFF CBC ####[place] [id number] [facility] RBC (Bld) [#/Vol] 2.86 10*6/uL Low 3.90-5.60 [facility] Comment on above: Performed By: #### B MP, DIFF CBC ####[place] [phone] [facility] Segmented neutrophils/100 WBC (Bld) 85 % High 50-70 [facility] Comment on above: Performed By: #### B MP, DIFF CBC ####[facility] [place] [address] [facility] WBC (Bld) [#/Vol] 21.0 10*3/uL High 4.1-10.5 [facility] Comment on above: Performed By: #### B MP, DIFF CBC ####[place] [phone] [place] [id number] [facility] Glucose Poct Glucometerson 0 2- Glucose [Mass/Vol] 192 mg/dL Normal [facility] Comment on above: Result Comment: [facility] Glucose Reference Range is dependent on time and content of last meal. Glucose of more than 200 mg/dL in a nonstressed, ambulatory subject supports the diagnosis of Diabetes Mellitus.PERFORMED BY:[address] [place], [place] [phone] MEDICAL DIRECTORJOSEPH GARCIA M.D. Performed By: #### G LULS ####Point of Care testing, Glucose [Mass/Vol] 217 mg/dL Normal [facility] Comment on above: Result Comment: [facility] Glucose Reference Range is dependent on time and content of last meal. Glucose of more than 200 mg/dL in a nonstressed, ambulatory subject supports the diagnosis of Diabetes Mellitus.PERFORMED BY:[address] [place], [place] [phone] MEDICAL SILVIA GARCIA M.D. Performed By: #### G LULS ####Point of Care testing, Glucose [Mass/Vol] 172 mg/dL Normal [facility] Comment on above: Result Comment: [facility] Glucose Reference Range is dependent on time and content of last meal. Glucose of more than 200 mg/dL in a nonstressed, ambulatory subject supports the diagnosis of Diabetes Mellitus.PERFORMED BY:[address] [place], [place] [phone] MEDICAL SILVIA GARCIA M.D. Performed By: #### G VALERY ####Point of Care testing, Band form neutrophils/100 WB C Manual cnt (Bld)Ordered By: Tello Nava on 07-18-2023 Band form neutrophils/100 WBC (Bld) 4 % 0-5 [facility] Basic Metabolic Panelon 06-27 Anion gap [Moles/Vol] Not performed Normal 6.0-15.0 [facility] Comment on above: Performed By: #### B MP, DIFF CBC ####[place] [address] [place] [address] [facility] Calcium [Mass/Vol] 7.1 mg/dL Low 8.6-10.3 [facility] Comment on above: Performed By: #### B MP, DIFF CBC ####[place] [place] [address] [facility] Chloride [Moles/Vol] 95 mmol/L Low 98-107 [facility] Comment on above: Performed By: #### B MP, DIFF CBC ####[place] [address] [place] [address] [facility] CO2 [Moles/Vol] 23.7 mmol/L Normal 21.0-31.0 [facility] Comment on above: Performed By: #### B MP, DIFF CBC ####[address] [address] [facility] Creatinine [Mass/Vol] 4.82 mg/dL Significan t change up 0.70-1.30 [facility] Comment on above: Performed By: #### B MP, DIFF CBC ####[address] [address] [place] Creatinine Clr Calc Pharmacy 15.95 Normal [facility] Comment on above: Result Comment: PERF ORMED BY:[address] [place], [place] [phone] MEDICAL DIRECTORJOSEPH GARCIA M.D. Performed By: #### B MP, DIFF CBC ####[address] [address] [place] GFR/1.73 sq M.predicted MDRD (S/P/Bld) [Vol rate/Area] 12.189 mL/min/{1.73_m2} Normal [facility] Comment on above: Performed By: #### B MP, DIFF CBC ####[facility] Glucose [Mass/Vol] 148 mg/dL High 70-100 [facility] [facility] Comment on above: Result Comment: [place] Glucose Reference Range is dependent on time and content of last meal. Glucose of more than 200 mg/dL in a nonstressed, ambulatory subject supports the diagnosis of Diabetes Mellitus. ADA recommended reference range Performed By: #### B MP, DIFF CBC ####[facility] [id number] Potassium Normal 3.5-5.1 [facility] Comment on above: Result Comment: Spec imen hemolyzed, redraw requested Performed By: #### B MP, DIFF CBC ####[address] Sodium [Moles/Vol] 128 mmol/L Low 136-145 [facility] Comment on above: Performed By: #### B MP, DIFF CBC ####[address] Urea nitrogen [Mass/Vol] 66 mg/dL Significant change up 25 [facility] Comment on above: Performed By: #### B MP, DIFF CBC ####[address] Basophils Auto (Bld) [#/Vol] Ordered By: Tello Nava on 07-18-2023 Basophils (Bld) [#/Vol] N/A [facility] Basophils/100 WBC Auto (Bld) Ordered By: Tello Nava on 07-18-2023 Basophils/100 WBC (Bld) N/A [facility] Basophils/100 WBC Manual cnt (Bld)Ordered By: Tello Nava on 07-18-2023 Basophils/100 WBC (Bld) 1 % 0-2 [facility] Demetrio cells [Presence] in Blo od by Light microscopyOrdered By: Tello Nava on 07-18-2023 Foster cells LM Ql (Bld) Slight Fi [facility] Calcium [Mass/volume] in Ser um or PlasmaOrdered By: Tello Nava on 07-18-2023 Calcium [Mass/Vol] 7.1 mg/dL 8.6-10.3 [facility] Carbon dioxide, total [Moles /volume] in Serum or PlasmaOrdered By: Tello Nava on 07-18-2023 CO2 [Moles/Vol] 23.7 mmol/L 21.0-31.0 [facility] Chloride [Moles/volume] in S rene or PlasmaOrdered By: Tello Nava on 07-18-2023 Chloride [Moles/Vol] 95 mmol/L 98-107 [facility] Creatinine [Mass/volume] in Serum or PlasmaOrdered By: Tello Nava on 07-18-2023 Creatinine [Mass/Vol] 4.82 mg/dL 0.70-1.30 [facility] Comment on above: Delta: 6.18 on 07/17-06 Diff and CBCon 07-18-2023 Band form neutrophils/100 WBC (Bld) 4 % Normal 0-5 [facility] Comment on above: Performed By: #### B MP, DIFF CBC ####[address] Basophils/100 WBC (Bld) 1 % Normal 0-2 [facility] Comment on above: Performed By: #### B MP, DIFF CBC ####[place] [id number] [facility] Crenated RBC Slight Normal [facility] Comment on above: Performed By: #### B MP, DIFF CBC ####[place] [id number] [facility] Eosinophils/100 WBC (Bld) 3 % Normal 1-3 [facility] Comment on above: Performed By: #### B MP, DIFF CBC ####[address] Erythrocyte distribution width (RBC) [Ratio] 14.4 % Normal 12.0-14.8 [facility] Comment on above: Performed By: #### B MP, DIFF CBC ####[address] Hematocrit (Bld) [Volume fraction] 20.4 % Low 38.8-50.0 [facility] Comment on above: Performed By: #### B MP, DIFF CBC ####[address] Hemoglobin (Bld) [Mass/Vol] 7.0 g/dL Low 13.0-17.0 [facility] Comment on above: Performed By: #### B MP, DIFF CBC ####[address] Lymphocytes/100 WBC (Bld) 8 % Low 18-42 [facility] Comment on above: Performed By: #### B MP, DIFF CBC ####[address] MCH (RBC) [Entitic mass] 29.5 pg Normal 27.5-35.2 [facility] Comment on above: Performed By: #### B MP, DIFF CBC ####[address] MCV (RBC) [Entitic vol] 85.8 fL Normal 83.5-101 [facility] Comment on above: Performed By: #### B MP, DIFF CBC ####[address] Mean Corpuscular HGB Conc 34.4 g/dL Normal 32.5-35.6 [facility] Comment on above: Performed By: #### B MP, DIFF CBC ####[address] Metamyelocytes 3 % High 0-0 [facility] Comment on above: Performed By: #### B MP, DIFF CBC ####[address] Monocytes/100 WBC (Bld) 3 % Normal 2-11 [facility] Comment on above: Performed By: #### B MP, DIFF CBC ####[address] [address] [facility] Myelocytes 2 % High 0-0 [facility] Comment on above: Performed By: #### B MP, DIFF CBC ####[address] [address] [facility] Platelet Estimate Increased Normal Normal [facility] Comment on above: Performed By: #### B MP, DIFF CBC ####[address] [address] [facility] Platelet mean volume (Bld) [Entitic vol] 7.4 fL Normal 6.6-10.1 [facility] Comment on above: Performed By: #### B MP, DIFF CBC ####[address] [address] [facility] Platelet Morphology Normal Normal Normal [facility] Comment on above: Result Comment: PERF ORMED BY:[address] [place], [place] [phone] MEDICAL SILVIA GARCIA M.D. Performed By: #### B MP, DIFF CBC ####[address] [address] [facility] Platelets (Bld) [#/Vol] 457 10*3/uL High 150-450 [facility] Comment on above: Performed By: #### B MP, DIFF CBC ####[address] [address] [facility] Poikilocytosis Slight Normal [facility] Comment on above: Performed By: #### B MP, DIFF CBC ####[place] [id number] [facility] Polychromasia Slight Normal [facility] Comment on above: Performed By: #### B MP, DIFF CBC ####[address] [address] [facility] RBC (Bld) [#/Vol] 2.37 10*6/uL Low 3.90-5.60 [facility] Comment on above: Performed By: #### B MP, DIFF CBC ####[facility] [place] [address] [facility] RBC morphology finding Nom (Bld) Normal Normal Normal [facility] Comment on above: Performed By: #### B MP, DIFF CBC ####[place] [address] [place] [address] [facility] Schistocytes Slight Normal [facility] Comment on above: Performed By: #### B MP, DIFF CBC ####[address] [place] [place] [address] [facility] Segmented neutrophils/100 WBC (Bld) 77 % High 50-70 [facility] Comment on above: Performed By: #### B MP, DIFF CBC ####[place] [address] [place] [address] [facility] WBC (Bld) [#/Vol] 19.7 10*3/uL High 4.1-10.5 [facility] Comment on above: Performed By: #### B MP, DIFF CBC ####[address] [address] [facility] Eosinophils Auto (Bld) [#/Vo l]Ordered By: Tello Nava on 07-18-2023 Eosinophils (Bld) [#/Vol] N/A [facility] Eosinophils/100 WBC Auto (Bl d)Ordered By: Tello Nava on 07-18-2023 Eosinophils/100 WBC (Bld) N/A [facility] Eosinophils/100 WBC Manual c nt (Bld)Ordered By: Tello Nava on 07-18-2023 Eosinophils/100 WBC (Bld) 3 % 1-3 [facility] Erythrocyte distribution wid th Auto (RBC) [Ratio]Ordered By: Tello Nava on 07-18-2023 Erythrocyte distribution width (RBC) [Ratio] 14.4 % 12.0-14.8 [facility] Glucose Glucometer (BldC) [M ass/Vol]Ordered By: Tello Nava on 07-18-2023 Glucose [Mass/Vol] 280 mg/dL [facility] Comment on above: Random Glucose Refer ence Range is dependent on time and content of last meal. Glucose of more than 200 mg/dL in a nonstressed, ambulatory subject supports the diagnosis of Diabetes Mellitus. Glucose Poct Glucometerson 0 07-18-2023 Glucose [Mass/Vol] 280 mg/dL Normal [facility] Comment on above: Result Comment: [place] Glucose Reference Range is dependent on time and content of last meal. Glucose of more than 200 mg/dL in a nonstressed, ambulatory subject supports the diagnosis of Diabetes Mellitus.PERFORMED BY:[place] [address] [address] [place], [place] [phone] MEDICAL DIRECTORJOSEPH GARCIA M.D. Performed By: #### G LULS ####Point of Care testing, Glucose [Mass/Vol] 137 mg/dL Normal [facility] Comment on above: Result Comment: [facility] Glucose Reference Range is dependent on time and content of last meal. Glucose of more than 200 mg/dL in a nonstressed, ambulatory subject supports the diagnosis of Diabetes Mellitus.PERFORMED BY:[place] [address] [address] [place], [place] [phone] MEDICAL SILVIA GARCIA M.D. Performed By: #### G LULS ####Point of Care testing, Glucose [Mass/Vol] 146 mg/dL Normal [facility] Comment on above: Result Comment: [facility] Glucose Reference Range is dependent on time and content of last meal. Glucose of more than 200 mg/dL in a nonstressed, ambulatory subject supports the diagnosis of Diabetes Mellitus.PERFORMED BY:[place] [address] [address] T[address] [place], [place] [phone] MEDICAL SILVIA GARCIA M.D. Performed By: #### G LULS ####Point of Care testing, Glucose [Mass/Vol] 151 mg/dL Normal [facility] Comment on above: Result Comment: [place] Glucose Reference Range is dependent on time and content of last meal. Glucose of more than 200 mg/dL in a nonstressed, ambulatory subject supports the diagnosis of Diabetes Mellitus.PERFORMED BY:[address] [place], [place] [phone] MEDICAL DIRECTORJOSEPH GARCIA M.D. Performed By: #### G VALERY ####Point of Care testing, Glucose [Mass/Vol] 169 mg/dL Normal [facility] Comment on above: Result Comment: [place] Glucose Reference Range is dependent on time and content of last meal. Glucose of more than 200 mg/dL in a nonstressed, ambulatory subject supports the diagnosis of Diabetes Mellitus.PERFORMED BY:[facility] [phone] MEDICAL DIRECTORJOSEPH GARCIA M.D. Performed By: #### G VALERY ####Point of Care testing, Glucose [Mass/volume] in Ser um or PlasmaOrdered By: Tello Nava on 07-18-2023 Glucose [Mass/Vol] 148 mg/dL 70-100 [facility] Comment on above: ADA recommended refe rence rangeRandom Glucose Reference Range is dependent on time and content of last meal. Glucose of more than 200 mg/dL in a nonstressed, ambulatory subject supports the diagnosis of Diabetes Mellitus. Hematocrit Auto (Bld) [Volum e fraction]Ordered By: Tello Nava on 07-18-2023 Hematocrit (Bld) [Volume fraction] 20.4 % 38.8-50.0 [facility] Hemoglobin [Mass/volume] in BloodOrdered By: Tello Nava on 07-18-2023 Hemoglobin (Bld) [Mass/Vol] 7.0 g/dL 13.0-17.0 [facility] Neil 07-18-2023 L Normal [facility] Leukocytes [#/volume] correc jewel for nucleated erythrocytes in Blood by Automated counOrdered By: Tello Nava on 07-18-2023 WBC corrected for nucl RBC Auto (Bld) [#/Vol] 19.7 10*3/uL 4.1-10.5 [facility] Lymphocytes Auto (Bld) [#/Vo l]Ordered By: Tello Nava on 07-18-2023 Lymphocytes (Bld) [#/Vol] N/A [facility] Lymphocytes/100 WBC Auto (Bl d)Ordered By: Tello Nava on 07-18-2023 Lymphocytes/100 WBC (Bld) N/A [facility] Lymphocytes/100 WBC Manual c nt (Bld)Ordered By: Tello Nava on 07-18-2023 Lymphocytes/100 WBC (Bld) 8 % 18-42 [facility] MCH Auto (RBC) [Entitic mass ]Ordered By: Tello Nava on 07-18-2023 MCH (RBC) [Entitic mass] 29.5 pg 27.5-35.2 [facility] MCHC Auto (RBC) [Mass/Vol]Or dered By: Tello Nava on 07-18-2023 MCHC (RBC) [Mass/Vol] 34.4 g/dL 32.5-35.6 [facility] MCV Auto (RBC) [Entitic vol] Ordered By: Tello Nava on 07-18-2023 MCV (RBC) [Entitic vol] 85.8 fL 83.5-101 [facility] Metamyelocytes/100 WBC Manua l cnt (Bld)Ordered By: Tello Nava on 07-18-2023 Metamyelocytes/100 WBC (Bld) 3 % 0-0 [facility] Monocytes Auto (Bld) [#/Vol] Ordered By: Tello Nava on 07-18-2023 Monocytes (Bld) [#/Vol] N/A [facility] Monocytes/100 WBC Auto (Bld) Ordered By: Tello Nava on 07-18-2023 Monocytes/100 WBC (Bld) N/A [facility] Monocytes/100 WBC Manual cnt (Bld)Ordered By: Tello Nava on 07-18-2023 Monocytes/100 WBC (Bld) 3 % 2-11 [facility] Myelocytes/100 WBC Manual cn t (Bld)Ordered By: Tello Nava on 07-18-2023 Myelocytes/100 WBC (Bld) 2 % 0-0 [facility] Neutrophils Auto (Bld) [#/Vo l]Ordered By: Tello Nava on 07-18-2023 Neutrophils (Bld) [#/Vol] N/A [facility] Neutrophils/100 WBC Auto (Bl d)Ordered By: Tello Nava on 07-18-2023 Neutrophils/100 WBC (Bld) N/A [facility] No Panel InformationOrdered By: Tello Nava on 07-18-2023 Estimated GFR (CKD-EPI) 12.189 mL/Min [facility] Creatinine Clearance (Chem 15.95 [facility] Nucleated erythrocytes [Pres ence] in Blood by Automated countOrdered By: Tello Nava on 07-18-2023 Nucleated RBC Auto Ql (Bld) N/A [facility] Platelet adequacy [Presence] in Blood by Light microscopyOrdered By: Tello Nava on 07-18-2023 Platelets LM Ql (Bld) Increased Normal [facility] Platelet mean volume Auto (B ld) [Entitic vol]Ordered By: Tello Nava on 07-18-2023 Platelet mean volume (Bld) [Entitic vol] 7.4 fL 6.6-10.1 [facility] Platelet morphology finding [Identifier] in BloodOrdered By: Tello Nava on 07-18-2023 Platelet morphology finding Nom (Bld) Normal Normal [facility] Platelets Auto (Bld) [#/Vol] Ordered By: Tello Nava on 07-18-2023 Platelets (Bld) [#/Vol] 457 10*3/uL 150-450 [facility] Poikilocytosis [Presence] in Blood by Light microscopyOrdered By: Tello Nava on 07-18-2023 Poikilocytosis LM Ql (Bld) Slight [facility] Polychromasia [Presence] in Blood by Light microscopyOrdered By: Tello Nava on 07-18-2023 Polychromasia LM Ql (Bld) [facility] Potassium [Moles/volume] in Serum or PlasmaOrdered By: Tello Nava on 07-18-2023 Potassium [Moles/Vol] 4.6 mmol/L 3.5-5.1 [facility] RBC Auto (Bld) [#/Vol]Ordere d By: Tello Nava on 07-18-2023 RBC (Bld) [#/Vol] 2.37 10*6/uL 3.90-5.60 [facility] RBC morphologyOrdered By: Mayelin Nava on 07-18-2023 RBC morphology finding Nom (Bld) Normal Normal [facility] Redraw Potassiumon 4 Potassium [Moles/Vol] 4.6 mmol/L Normal 3.5-5.1 [facility] Comment on above: Result Comment: PERF ORMED BY:[facility] [place] [place], [place] [phone] MEDICAL DIRECTORJOSEPH GARCIA M.D. Performed By: #### R HOLA Tinajero ####[facility] [place] [address] [facility] Schistocytes [Presence] in B lood by Light microscopyOrdered By: Tello Nava on 07-18-2023 Schistocytes LM Ql (Bld) Slight [facility] Segmented neutrophils/100 WB C Manual cnt (Bld)Ordered By: Tello Nava on 07-18-2023 Segmented neutrophils/100 WBC (Bld) 77 % 50-70 [facility] Serum or plasma anion gap de terminationOrdered By: Tello Nava on 07-18-2023 Anion gap [Moles/Vol] TNP [facility] Comment on above: Test not performed Sodium [Moles/volume] in Ser um or PlasmaOrdered By: Tello Nava on 07-18-2023 Sodium [Moles/Vol] 128 mmol/L 136-145 [facility] Urea nitrogen [Mass/volume] in Serum or PlasmaOrdered By: Tello Nava on 07-18-2023 Urea nitrogen [Mass/Vol] 66 mg/dL 7-25 [facility] Comment on above: Delta: 99 on 4-0647 WBC Auto (Bld) [#/Vol]Ordere d By: Tello Nava on 07-18-2023 WBC (Bld) [#/Vol] 19.7 10*3/uL 4.1-10.5 [facility] XR foot LT 2Von 07-18-2023 XR foot LT 2V Normal [facility] ABO/Rh Retypeon 07-17-2023 ABO/RH Recheck Result Positive Normal [facility] Comment on above: Order Comment: pt in dialysis Result Comment: PERF ORMED BY:[place] [address] [address] [place], [place] [phone] MEDICAL DIRECTORJOSEPH GARCIA M.D. Acanthocytes [Presence] in B lood by Light microscopyOrdered By: Rohan Han on 07-17-2023 Acanthocytes LM Ql (Bld) Slight [facility] Basic Metabolic Panelon 06-27 Anion gap [Moles/Vol] 16.3 mmol/L High 6.0-15.0 [facility] Comment on above: Performed By: #### B MP ####[address] [place] [address] [place] Calcium [Mass/Vol] 7.5 mg/dL Low 8.6-10.3 [facility] Comment on above: Performed By: #### B MP ####[address] [place] [address] [place] Chloride [Moles/Vol] 94 mmol/L Low 98-107 [facility] Comment on above: Performed By: #### B MP ####[address] [place] [place] [address] [facility] CO2 [Moles/Vol] 19.7 mmol/L Low 21.0-31.0 [facility] Comment on above: Performed By: #### B MP ####[facility] [place] [address] [place] Creatinine [Mass/Vol] 6.18 mg/dL High 0.70-1.30 [facility] Comment on above: Performed By: #### B MP ####[place] [place] [place] [address] [place] Creatinine Clr Calc Pharmacy 12.85 [facility] [place] Comment on above: Result Comment: PERF ORMED BY:[place] [address] [address] [place], [place] [phone] MEDICAL DIRECTORJOSEPH GARCIA M.D. Performed By: #### B MP ####[place] [address] [place] [id number] [facility] GFR/1.73 sq M.predicted MDRD (S/P/Bld) [Vol rate/Area] 9.045 mL/min/{1.73_m2} Normal [facility] Comment on above: Performed By: #### B MP ####[place] [id number] [facility] Glucose [Mass/Vol] 140 mg/dL High 70-100 [facility] Comment on above: Result Comment: [facility] Glucose Reference Range is dependent on time and content of last meal. Glucose of more than 200 mg/dL in a nonstressed, ambulatory subject supports the diagnosis of Diabetes Mellitus. ADA recommended reference range Performed By: #### B MP ####[place] [id number] [facility] Potassium [Moles/Vol] 5.0 mmol/L Normal 3.5-5.1 [facility] Comment on above: Performed By: #### B MP ####[place] [id number] [facility] Sodium [Moles/Vol] 125 mmol/L Low 136-145 [facility] Comment on above: Performed By: #### B MP ####[place] [id number] [facility] Urea nitrogen [Mass/Vol] 99 mg/dL High 7-25 [facility] Comment on above: Performed By: #### B MP ####[place] [id number] [facility] Blood toxic granulation dete ction by light microscopyOrdered By: Rohan Han on 07-17-2023 Toxic granules LM Ql (Bld) Slight [facility] Diff and CBCon 07-17-2023 Acanthocytes Slight Normal [facility] Comment on above: Performed By: #### D IFF CBC ####[place] [id number] [place] Band form neutrophils/100 WBC (Bld) 2 % Normal 0-5 [facility] Comment on above: Performed By: #### D IFF CBC ####[address] Eosinophils/100 WBC (Bld) 1 % Normal 1-3 [facility] Comment on above: Performed By: #### D IFF CBC ####[address] Erythrocyte distribution width (RBC) [Ratio] 13.2 % Normal 12.0-14.8 [facility] Comment on above: Performed By: #### D IFF CBC ####[address] Giant Platelet Tally 1 /100{WBC} Normal [facility] Comment on above: Performed By: #### D IFF CBC ####[address] Hematocrit (Bld) [Volume fraction] 20.0 % Low 38.8-50.0 [facility] Comment on above: Performed By: #### D IFF CBC ####[address] Hemoglobin (Bld) [Mass/Vol] 6.9 g/dL Low 13.0-17.0 [facility] Comment on above: Performed By: #### D IFF CBC ####[address] Lymphocytes/100 WBC (Bld) 8 % Low 18-42 [facility] Comment on above: Performed By: #### D IFF CBC ####[address] MCH (RBC) [Entitic mass] 30.2 pg Normal 27.5-35.2 [facility] Comment on above: Performed By: #### D IFF CBC ####[address] MCV (RBC) [Entitic vol] 88.0 fL Normal 83.5-101 [facility] Comment on above: Performed By: #### D IFF CBC ####[address] [address] [facility] Mean Corpuscular HGB Conc 34.4 g/dL Normal 32.5-35.6 [facility] Comment on above: Performed By: #### D IFF CBC ####[facility] [id number] [place] [address] [facility] Metamyelocytes 4 % High 0-0 [facility] Comment on above: Performed By: #### D IFF CBC ####[address] [address] [facility] Monocytes/100 WBC (Bld) 5 % Normal 2-11 [facility] Comment on above: Performed By: #### D IFF CBC ####[address] [address] [facility] Myelocytes 1 % High 0-0 [facility] Comment on above: Performed By: #### D IFF CBC ####[facility] [address] [place] [address] [facility] Platelet Estimate Increased Normal Normal [facility] Comment on above: Performed By: #### D IFF CBC ####[address] [address] [facility] Platelet mean volume (Bld) [Entitic vol] 7.5 fL Normal 6.6-10.1 [facility] Comment on above: Result Comment: PERF ORMED BY:[place] [address] [address] [place], [place] [phone] MEDICAL DIRECTORJOSEPH GARCIA M.D. Performed By: #### D IFF CBC ####[address] [address] [facility] Platelet Morphology Normal Normal Normal [facility] Comment on above: Result Comment: PERF ORMED BY:[place] [address] [address] [place], [place] [phone] MEDICAL DIRECTORJOSEPH GARCIA M.D. Performed By: #### D IFF CBC ####[facility] [address] [place] [address] [facility] Platelets (Bld) [#/Vol] 461 10*3/uL High 150-450 [facility] Comment on above: Performed By: #### D IFF CBC ####[facility] [place] [address] [facility] Poikilocytosis Slight Normal [facility] Comment on above: Performed By: #### D IFF CBC ####[address] [place] [address] [facility] RBC (Bld) [#/Vol] 2.27 10*6/uL Low 3.90-5.60 [facility] Comment on above: Performed By: #### D IFF CBC ####[place] [address] [place] [id number] [facility] Segmented neutrophils/100 WBC (Bld) 80 % High 50-70 [facility] Comment on above: Performed By: #### D IFF CBC ####[place] [id number] [facility] Toxic Granulation Slight Normal [facility] Comment on above: Performed By: #### D IFF CBC ####[address] [address] [facility] WBC (Bld) [#/Vol] 22.7 10*3/uL High 4.1-10.5 [facility] Comment on above: Performed By: #### D IFF CBC ####[place] [id number] [facility] Giant platelets/100 leukocyt es [Ratio] in Blood by Manual countOrdered By: Rohan Han on 07-17-2023 Giant platelets/100 WBC Manual cnt (Bld) [Ratio] 1 /100{WBC} [facility] Glucose Poct Glucometerson 0 07-17-2023 Glucose [Mass/Vol] 178 mg/dL Normal [facility] Comment on above: Result Comment: [place] Glucose Reference Range is dependent on time and content of last meal. Glucose of more than 200 mg/dL in a nonstressed, ambulatory subject supports the diagnosis of Diabetes Mellitus.PERFORMED BY:[place] [address] [address] [place] [id number] MEDICAL DIRECTORJOSEPH GARCIA M.D. Performed By: #### G LULS ####Point of Care testing, Commemt1 Glu2: Cleaned Meter [facility] Comment on above: Result Comment: PERF ORMED BY:[place] [address] [address] LATamikoTracyLUZ [place], [place] [phone] MEDICAL DIRECTORJOSEPH GARCIA M.D. Performed By: #### G LULS ####Point of Care testing, Glucose [Mass/Vol] 132 mg/dL Normal [facility] Comment on above: Result Comment: [place] om Glucose Reference Range is dependent on time and content of last meal. Glucose of more than 200 mg/dL in a nonstressed, ambulatory subject supports the diagnosis of Diabetes Mellitus. Performed By: #### G LULS ####Point of Care testing, Commemt1 Glu2: Cleaned Meter [facility] Comment on above: Result Comment: PERF ORMED BY:[address]YATracyLUZ [place], [place] [id number] MEDICAL SILVIA GARCIA M.D. Performed By: #### G LULS ####Point of Care testing, Glucose [Mass/Vol] 116 mg/dL Normal [facility] Comment on above: Result Comment: [place] om Glucose Reference Range is dependent on time and content of last meal. Glucose of more than 200 mg/dL in a nonstressed, ambulatory subject supports the diagnosis of Diabetes Mellitus. Performed By: #### G LULS ####Point of Care testing, Commemt1 Glu2: Cleaned Meter [facility] Comment on above: Result Comment: PERF ORMED BY:[place] [address] [address] LOYATracyLUZ [place], [place] [phone] MEDICAL SILVIA GARCIA M.D. Performed By: #### G LULS ####Point of Care testing, Glucose [Mass/Vol] 151 mg/dL Normal [facility] Comment on above: Result Comment: [place] om Glucose Reference Range is dependent on time and content of last meal. Glucose of more than 200 mg/dL in a nonstressed, ambulatory subject supports the diagnosis of Diabetes Mellitus. Performed By: #### G LULS ####Point of Care testing, Commemt1 Glu2: Cleaned Meter [facility] Comment on above: Result Comment: PERF ORMED BY:[place] [address] [address]IV[address] AMADONEW [place], [place] [phone] MEDICAL DIRECTORJOSEPH GARCIA M.D. Performed By: #### G LULS ####Point of Care testing, Glucose [Mass/Vol] 165 mg/dL Normal [facility] Comment on above: Result Comment: [place] om Glucose Reference Range is dependent on time and content of last meal. Glucose of more than 200 mg/dL in a nonstressed, ambulatory subject supports the diagnosis of Diabetes Mellitus. Performed By: #### G LULS ####Point of Care testing, Commemt1 Glu2: Cleaned Meter [facility] Comment on above: Result Comment: PERF ORMED BY:[place] [address] [address] LOYATracyLUZ [place], [place] [phone] MEDICAL DIRECTORJOSEPH GARCIA M.D. Performed By: #### G LULS ####Point of Care testing, Glucose [Mass/Vol] 153 mg/dL Normal [facility] Comment on above: Result Comment: [place] om Glucose Reference Range is dependent on time and content of last meal. Glucose of more than 200 mg/dL in a nonstressed, ambulatory subject supports the diagnosis of Diabetes Mellitus. Performed By: #### G LULS ####Point of Care testing, LeukoReduced RBCon LeukoReduced RBC TRANSFUSED 07/18/23 0925 [facility] No Panel InformationOrdered By: Tello Nava on 07-17-2023 Bedside Glucose Comment Glu2: cleaned meter [facility] Type and Screenon 07-17-2023 ABO and Rh group Nom (Bld) Blood group O Rh(D) positive [facility] Comment on above: Order Comment: Trans fuse now? Y Number of units to transfuse now? 1 Transfuse now? Y Number of units to transfuse now? 2 XR chest 1V portableon 07-17 XR chest 1V portable Normal [facility] Basic Metabolic Panelon 06-27 Anion gap [Moles/Vol] 16.2 mmol/L High 6.0-15.0 [facility] Comment on above: Performed By: #### B MP ####[address] [place] [address] [facility] Calcium [Mass/Vol] 7.4 mg/dL Low 8.6-10.3 [facility] Comment on above: Performed By: #### B MP ####[address] [place] [address] [facility] Chloride [Moles/Vol] 93 mmol/L Low 98-107 [facility] Comment on above: Performed By: #### B MP ####[address] [place] [address] [facility] CO2 [Moles/Vol] 20.6 mmol/L Low 21.0-31.0 [facility] Comment on above: Performed By: #### B MP ####[address] [place] [address] [facility] Creatinine [Mass/Vol] 5.95 mg/dL Significan t change up 0.70-1.30 [facility] Comment on above: Performed By: #### B MP ####[address] [place] [address] [place] Creatinine Clr Calc Pharmacy 13.34 [facility] Comment on above: Result Comment: PERF ORMED BY:[place] [address] SHIVA [place], [place] [phone] MEDICAL DIRECTORJOSEPH GARCIA M.D. Performed By: #### B MP ####[address] [place] [address] [place] GFR/1.73 sq M.predicted MDRD (S/P/Bld) [Vol rate/Area] 9.466 mL/min/{1.73_m2} [facility] Comment on above: Performed By: #### B MP ####[address] [place] [address] [facility] Glucose [Mass/Vol] 166 mg/dL High 70-100 [facility] Comment on above: Result Comment: [place] Glucose Reference Range is dependent on time and content of last meal. Glucose of more than 200 mg/dL in a nonstressed, ambulatory subject supports the diagnosis of Diabetes Mellitus. ADA recommended reference range Performed By: #### B MP ####[address] [place] [address] [facility] Potassium [Moles/Vol] 4.8 mmol/L Normal 3.5-5.1 [facility] Comment on above: Performed By: #### B MP ####[address] [address] [facility] Sodium [Moles/Vol] 125 mmol/L Low 136-145 [facility] Comment on above: Performed By: #### B MP ####[address] [place] [address] [facility] Urea nitrogen [Mass/Vol] 85 mg/dL High 7-25 [facility] Comment on above: Performed By: #### B MP ####[address] [place] [address] [facility] Glucose Poct Glucometerson 0 - Commemt1 Glu2: Cleaned Meter [facility] Comment on above: Result Comment: PERF ORMED BY:[place] [address] LU[address] [place], [place] [phone] MEDICAL DIRECTORJOSEPH GARCIA M.D. Performed By: #### G VALERY ####Point of Care testing, Glucose [Mass/Vol] 152 mg/dL Normal [facility] Comment on above: Result Comment: [place] Glucose Reference Range is dependent on time and content of last meal. Glucose of more than 200 mg/dL in a nonstressed, ambulatory subject supports the diagnosis of Diabetes Mellitus. Performed By: #### G LULS ####Point of Care testing, Glucose [Mass/Vol] 150 mg/dL Normal [facility] Comment on above: Result Comment: [facility] Glucose Reference Range is dependent on time and content of last meal. Glucose of more than 200 mg/dL in a nonstressed, ambulatory subject supports the diagnosis of Diabetes Mellitus.PERFORMED BY:[place] [address] SH[address] NUÑ[place], [place] [phone] MEDICAL DIRECTORJOSEPH GARCIA M.D. Performed By: #### G LULS ####Point of Care testing, Glucose [Mass/Vol] 208 mg/dL Normal [facility] Comment on above: Result Comment: [facility] Glucose Reference Range is dependent on time and content of last meal. Glucose of more than 200 mg/dL in a nonstressed, ambulatory subject supports the diagnosis of Diabetes Mellitus.PERFORMED BY:[place] [address] [address] LOYATracyLUZ [place], [place] [phone] MEDICAL SILVIA GARCIA M.D. Performed By: #### G LULS ####Point of Care testing, Commemt1 Glu2: Cleaned Meter Normal [facility] Comment on above: Result Comment: PERF ORMED BY:[place] [address] [address] [place], [place] [phone] MEDICAL SILVIA GARCIA M.D. Performed By: #### G LULS ####Point of Care testing, Glucose [Mass/Vol] 196 mg/dL Normal [facility] Comment on above: Result Comment: [facility] Glucose Reference Range is dependent on time and content of last meal. Glucose of more than 200 mg/dL in a nonstressed, ambulatory subject supports the diagnosis of Diabetes Mellitus. Performed By: #### G LULS ####Point of Care testing, Hepatitis Acute Panelon 06-27 HBsAg Screen Negative Normal Negative [facility] Comment on above: Performed By: #### H BCAB, HBSAB, HEPACUTE ####[facility] , Hepatitis A Antibody IgM Negative Normal Negative [facility] Comment on above: Performed By: #### H BCAB, HBSAB, HEPACUTE ####[facility] , Hepatitis B Core Antibody IgM Negative Normal Negative [facility] Comment on above: Performed By: #### H BCAB, HBSAB, HEPACUTE ####[facility] , Hepatitis C Virus Antibody Non-Reactive Normal Non Reactive [facility] Comment on above: Performed By: #### H BCAB, HBSAB, HEPACUTE ####[facility] , Interpretation Hepatitis C Normal . [facility] Comment on above: Result Comment: Not infected with HCV unless early or acute infection is suspected (which may be delayed in an immunocompromised individual), or other evidence exists to indicate HCV infection. Performed By: #### H BCAB, HBSAB, HEPACUTE ####[facility] , Hepatitis B Core Antibodyon 07-16-2023 Hepatitis B Core Antibody Negative Normal Negative [facility] Comment on above: Result Comment: Perf ormed at: - [facility] [address] [id number] [employer] Firer: Alvaro Verde PhD, Phone: [phone] BY:[address] [address] [place], [place] [phone] MEDICAL DIRECTORJOSEPH GARCIA M.D. Performed By: #### H BCAB, HBSAB, HEPACUTE ####[facility] , Hepatitis B Surface Antibody on 07-16-2023 Hepatitis B Surface Antibody Non-Reactive Normal . [facility] Comment on above: Result Comment: Non Reactive: Inconsistent with immunity, less than 10 mIU/mL Reactive: Consistent with immunity, greater than 9.9 mIU/mL Performed By: #### H BCAB, HBSAB, HEPACUTE ####[facility] , Hepatitis B virus surface Ab [Presence] in SerumOrdered By: Sanket Hammer on 07-16-2023 HBV surface Ab Ql (S) Non-Reactive . [facility] Comment on above: Non Reactive: Incons istent with immunity, less than 10 mIU/mL Reactive: Consistent with immunity, greater than 9.9 mIU/mL Hepatitis B virus surface Ag [Presence] in Serum or Plasma by ImmunoassayOrdered By: Sanket Hammer on 07-16-2023 HBV surface Ag IA Ql Negative Negative [facility] Hepatitis C virus IgG Ab [Pr esence] in Serum or Plasma by ImmunoassayOrdered By: Sanket Hammer on 07-16-2023 HCV IgG IA Ql Non-Reactive Non Reactive [facility] Hepatitis C virus RNA [Units /volume] (viral load) in Serum or Plasma by JONES with probOrdered By: Sanket Hammer on 07-16-2023 HCV RNA JONES+probe Qn N/A [facility] Hepatitis C virus RNA [log u nits/volume] (viral load) in Serum or Plasma by JONES withOrdered By: Sanket Hammer on 07-16-2023 HCV RNA JONES+probe [Log units/Vol] N/A [facility] No Panel InformationOrdered By: Sanket Hammer on 07-16-2023 Hepatitis A IgM Antibody Negative Negative [facility] Hepatitis B Core IgM Antibody Negative Negative [facility] Hepatitis B Core Total Antibody Negative Negative [facility] Comment on above: Performed at: [place] [id number] Director: Alvaro Verde PhD, Phone: [phone] Hepatitis C Interpretation See comment . [facility] Comment on above: Not infected with HC V unless early or acute infection issuspected (which may be delayed in an immunocompromisedindividual), or other evidence exists to indicate HCVinfection. Basic Metabolic Panelon 06-27 Anion gap [Moles/Vol] 15.7 mmol/L High 6.0-15.0 [facility] Comment on above: Performed By: #### B MP ####[facility] [address] Calcium [Mass/Vol] 7.0 mg/dL Low 8.6-10.3 [facility] Comment on above: Performed By: #### B MP ####[facility] [place] [address] [facility] Chloride [Moles/Vol] 94 mmol/L Low 98-107 [facility] Comment on above: Performed By: #### B MP ####[address] [place] [address] [facility] CO2 [Moles/Vol] 20.1 mmol/L Low 21.0-31.0 [facility] Comment on above: Performed By: #### B MP ####[place] [id number] [facility] Creatinine [Mass/Vol] 5.39 mg/dL Significan t change up 0.70-1.30 [facility] Comment on above: Performed By: #### B MP ####[address] [place] [id number] [facility] Creatinine Clr Calc Pharmacy 14.71 [facility] Comment on above: Result Comment: PERF ORMED BY:[address] [place], [place] [phone] MEDICAL SILVIA GARCIA M.D. Performed By: #### B MP ####[place] [id number] [facility] GFR/1.73 sq M.predicted MDRD (S/P/Bld) [Vol rate/Area] 10.659 mL/min/{1.73_m2} [facility] Comment on above: Performed By: #### B MP ####[place] [id number] [facility] Glucose [Mass/Vol] 176 mg/dL High 70-100 [facility] Comment on above: Result Comment: [place] om Glucose Reference Range is dependent on time and content of last meal. Glucose of more than 200 mg/dL in a nonstressed, ambulatory subject supports the diagnosis of Diabetes Mellitus. ADA recommended reference range Performed By: #### B MP ####[place] [id number] [facility] Potassium [Moles/Vol] 4.8 mmol/L Normal 3.5-5.1 [facility] Comment on above: Performed By: #### B MP ####[address] [place] [address] [facility] Sodium [Moles/Vol] 125 mmol/L Low 136-145 [facility] Comment on above: Performed By: #### B MP ####[address] [address] [facility] Urea nitrogen [Mass/Vol] 69 mg/dL High 7-25 [facility] Comment on above: Performed By: #### B MP ####[address] [address] [facility] C reactive protein [Mass/vol ume] in Serum or PlasmaOrdered By: Michael Ramírez on 07-15-2023 CRP [Mass/Vol] 9.7 mg/dL 0.0-0.5 [facility] C-Reactive Proteinon 024 C-Reactive Protein 9.7 mg/dL High 0.0-0.5 [facility] Comment on above: Result Comment: PERF ORMED BY:[address] [place] [place], [place] [phone] MEDICAL DIRECTORJOSEPH GARCIA M.D. Performed By: #### C RP ####[address] [address] [facility] Diff and CBCon 07-15-2023 Acanthocytes Slight Normal [facility] Comment on above: Performed By: #### D IFF CBC ####[address] [address] [place] Basophils/100 WBC (Bld) 1 % Normal 0-2 [facility] Comment on above: Performed By: #### D IFF CBC ####[address] [address] [place] Eosinophils/100 WBC (Bld) 3 % Normal 1-3 [facility] Comment on above: Performed By: #### D IFF CBC ####[address] [address] [facility] Erythrocyte distribution width (RBC) [Ratio] 13.1 % Normal 12.0-14.8 [facility] Comment on above: Performed By: #### D IFF CBC ####[address] Hematocrit (Bld) [Volume fraction] 25.1 % Low 38.8-50.0 [facility] Comment on above: Performed By: #### D IFF CBC ####[address] Hemoglobin (Bld) [Mass/Vol] 8.7 g/dL Low 13.0-17.0 [facility] Comment on above: Performed By: #### D IFF CBC ####[address] Lymphocytes/100 WBC (Bld) 4 % Low 18-42 [facility] Comment on above: Performed By: #### D IFF CBC ####[address] MCH (RBC) [Entitic mass] 29.8 pg Normal 27.5-35.2 [facility] Comment on above: Performed By: #### D IFF CBC ####[address] MCV (RBC) [Entitic vol] 86.5 fL Normal 83.5-101 [facility] Comment on above: Performed By: #### D IFF CBC ####[address] Mean Corpuscular HGB Conc 34.5 g/dL Normal 32.5-35.6 [facility] Comment on above: Performed By: #### D IFF CBC ####[place] [id number] [facility] Metamyelocytes 1 % High 0-0 [facility] Comment on above: Performed By: #### D IFF CBC ####[place] [id number] [facility] Monocytes/100 WBC (Bld) 3 % Normal 2-11 [facility] Comment on above: Performed By: #### D IFF CBC ####[facility] [place] [address] [facility] Myelocytes 1 % High 0-0 [facility] Comment on above: Performed By: #### D IFF CBC ####[address] [place] [address] [facility] Platelet Estimate Normal Normal Normal [facility] Comment on above: Performed By: #### D IFF CBC ####[address] [address] [facility] Platelet mean volume (Bld) [Entitic vol] 7.4 fL Normal 6.6-10.1 [facility] Comment on above: Result Comment: PERF ORMED BY:[address] AM[address]ONE[address] [place], [place] [phone] MEDICAL DIRECTORJOSEPH GARCIA M.D. Performed By: #### D IFF CBC ####[address] [address] [facility] Platelet Morphology Normal Normal Normal [facility] Comment on above: Result Comment: PERF ORMED BY:[address] AM[address]ONE[address] [place], [place] [phone] MEDICAL DIRECTORJOSEPH GARCIA M.D. Performed By: #### D IFF CBC ####[address] [address] [facility] Platelets (Bld) [#/Vol] 419 10*3/uL Normal 150-450 [facility] Comment on above: Performed By: #### D IFF CBC ####[address] [place] [address] [facility] Poikilocytosis Slight Normal [facility] Comment on above: Performed By: #### D IFF CBC ####[address] [address] [facility] RBC (Bld) [#/Vol] 2.91 10*6/uL Low 3.90-5.60 [facility] Comment on above: Performed By: #### D IFF CBC ####[place] [address] [place] [address] [facility] Segmented neutrophils/100 WBC (Bld) 87 % High 50-70 [facility] Comment on above: Performed By: #### D IFF CBC ####[facility] [address] [place] [address] [facility] WBC (Bld) [#/Vol] 20.5 10*3/uL High 4.1-10.5 [facility] Comment on above: Performed By: #### D IFF CBC ####[facility] [address] [place] [address] [facility] Glucose Poct Glucometerson 0 07-15-2023 Commemt1 Glu2: Cleaned Meter Normal [facility] Comment on above: Result Comment: PERF ORMED BY:[address] [address] [address] [place], [place] [phone] MEDICAL DIRECTORJOSEPH GARCIA M.D. Performed By: #### G LULS ####Point of Care testing, Glucose [Mass/Vol] 190 mg/dL Normal [facility] Comment on above: Result Comment: [facility] Glucose Reference Range is dependent on time and content of last meal. Glucose of more than 200 mg/dL in a nonstressed, ambulatory subject supports the diagnosis of Diabetes Mellitus. Performed By: #### G LULS ####Point of Care testing, Glucose [Mass/Vol] 221 mg/dL Normal [facility] Comment on above: Result Comment: [facility] Glucose Reference Range is dependent on time and content of last meal. Glucose of more than 200 mg/dL in a nonstressed, ambulatory subject supports the diagnosis of Diabetes Mellitus.PERFORMED BY:[address] [place], [place] [phone] MEDICAL DIRECTORJOSEPH GARCIA M.D. Performed By: #### G LULS ####Point of Care testing, Glucose [Mass/Vol] 214 mg/dL Normal [facility] Comment on above: Result Comment: [facility] Glucose Reference Range is dependent on time and content of last meal. Glucose of more than 200 mg/dL in a nonstressed, ambulatory subject supports the diagnosis of Diabetes Mellitus.PERFORMED BY:[facility] [place], [place] [phone] MEDICAL DIRECTORJOSEPH GARCIA M.D. Performed By: #### G LULS ####Point of Care testing, Glucose [Mass/Vol] 197 mg/dL Normal [facility] Comment on above: Result Comment: [place] Glucose Reference Range is dependent on time and content of last meal. Glucose of more than 200 mg/dL in a nonstressed, ambulatory subject supports the diagnosis of Diabetes Mellitus.PERFORMED BY:[facility] [place], [place] [phone] MEDICAL DIRECTORJOSEPH GARCIA M.D. Performed By: #### G LULS ####Point of Care testing, Anisocytosis LM Ql (Bld)Orde red By: Shun Manning on 07-14-2023 Anisocytosis Ql (Bld) Slight [facility] Automated erythrocytes count in urine sediment (number/area)Ordered By: Tello Nava on 07-14-2023 RBC Auto (Urine sed) [#/Area] 10-19 [HPF] 0-4 [facility] Automated leukocytes count i n urine sediment (number/area)Ordered By: Tello Nava on 07-14-2023 WBC Auto (Urine sed) [#/Area] 20-49 [HPF] 0-4 [facility] Automated urine hyaline cast s count (number/volume)Ordered By: Tello Nava on 07-14-2023 Hyaline casts Auto (U) [#/Vol] 5-9 [LPF] 0-1 [facility] Basic Metabolic Panelon 06-26 Anion gap [Moles/Vol] 12.4 mmol/L Normal 6.0-15.0 [facility] Comment on above: Performed By: #### B MP, DIFF CBC ####[facility] [address] [place] [address] [facility] Calcium [Mass/Vol] 7.2 mg/dL Low 8.6-10.3 [facility] Comment on above: Performed By: #### B MP, DIFF CBC ####[facility] [place] [address] [place] Chloride [Moles/Vol] 97 mmol/L Low 98-107 [facility] Comment on above: Performed By: #### B MP, DIFF CBC ####[facility] [place] [address] [facility] CO2 [Moles/Vol] 22.0 mmol/L Normal 21.0-31.0 [facility] Comment on above: Performed By: #### B MP, DIFF CBC ####[facility] [place] [address] [facility] Creatinine [Mass/Vol] 4.56 mg/dL Significan t change up 0.70-1.30 [facility] Comment on above: Performed By: #### B MP, DIFF CBC ####[address] [place] [address] [place] Creatinine Clr Calc Pharmacy 17.09 [facility] Comment on above: Result Comment: PERF ORMED BY:[address] LATamikoTracyVARNELL, [place] [phone] MEDICAL DIRECTORJOSEPH GARCIA M.D. Performed By: #### B MP, DIFF CBC ####[address] [place] [address] [place] GFR/1.73 sq M.predicted MDRD (S/P/Bld) [Vol rate/Area] 13.027 mL/min/{1.73_m2} [facility] Comment on above: Performed By: #### B MP, DIFF CBC ####[facility] [place] [address] [place] Glucose [Mass/Vol] 150 mg/dL High 70-100 [facility] Comment on above: Result Comment: [place] Glucose Reference Range is dependent on time and content of last meal. Glucose of more than 200 mg/dL in a nonstressed, ambulatory subject supports the diagnosis of Diabetes Mellitus. ADA recommended reference range Performed By: #### B MP, DIFF CBC ####[facility] [place] [address] [facility] Potassium [Moles/Vol] 4.4 mmol/L Normal 3.5-5.1 [facility] Comment on above: Performed By: #### B MP, DIFF CBC ####[facility] [place] [address] [facility] Sodium [Moles/Vol] 127 mmol/L Low 136-145 [facility] Comment on above: Performed By: #### B MP, DIFF CBC ####[facility] [place] [id number] [facility] Urea nitrogen [Mass/Vol] 57 mg/dL High 7-25 [facility] Comment on above: Performed By: #### B MP, DIFF CBC ####[address] [place] [address] [facility] Bilirubin Test strip Ql (U)O rdered By: Tello Nava on 07-14-2023 Bilirubin Ql (U) 1+ Negative [facility] Casts typing in urine sedime nt by light microscopyOrdered By: Tello Nava on 07-14-2023 Casts LM Nom (Urine sed) None seen [LPF] None Seen [facility] Color Auto (U)Ordered By: Mayelin Nava on 07-14-2023 Color (U) [place] Yellow [facility] Creatinine [Mass/volume] in UrineOrdered By: Tello Nava on 07-14-2023 Creatinine (U) [Mass/Vol] 172.0 mg/dL 14.0-26.0 [facility] Creatinine, Urine (Random)on 07-14-2023 Creatinine, Urine (Random) 172.0 mg/dL High 14.0-26.0 [facility] Comment on above: Result Comment: PERF ORMED BY:[address] [place] [phone] MEDICAL DIRECTORJOSEPH GARCIA M.D. Performed By: #### U RNA, ADDONUAPLUS, UCREA, CUU ####[address] [place] [address] [facility] Diff and CBCon 07-14-2023 Anisocytosis Ql (Bld) Slight Normal [facility] Comment on above: Performed By: #### B MP, DIFF CBC ####[address] Eosinophils/100 WBC (Bld) 1 % Normal 1-3 [facility] Comment on above: Performed By: #### B MP, DIFF CBC ####[address] Erythrocyte distribution width (RBC) [Ratio] 13.0 % Normal 12.0-14.8 [facility] Comment on above: Performed By: #### B MP, DIFF CBC ####[address] Giant Platelet Tally 2 /100{WBC} Normal [facility] Comment on above: Performed By: #### B MP, DIFF CBC ####[address] Hematocrit (Bld) [Volume fraction] 27.6 % Low 38.8-50.0 [facility] Comment on above: Performed By: #### B MP, DIFF CBC ####[address] Hemoglobin (Bld) [Mass/Vol] 9.7 g/dL Low 13.0-17.0 [facility] Comment on above: Performed By: #### B MP, DIFF CBC ####[place] [id number] [facility] Lymphocytes/100 WBC (Bld) 6 % Low 18-42 [facility] Comment on above: Performed By: #### B MP, DIFF CBC ####[address] MCH (RBC) [Entitic mass] 30.7 pg Normal 27.5-35.2 [facility] Comment on above: Performed By: #### B MP, DIFF CBC ####[address] MCV (RBC) [Entitic vol] 87.4 fL Normal 83.5-101 [facility] Comment on above: Performed By: #### B MP, DIFF CBC ####[address] [address] [facility] Mean Corpuscular HGB Conc 35.1 g/dL Normal 32.5-35.6 [facility] Comment on above: Performed By: #### B MP, DIFF CBC ####[address] [address] [facility] Metamyelocytes 1 % High 0-0 [facility] Comment on above: Performed By: #### B MP, DIFF CBC ####[address] [address] [facility] Microcytosis Slight Normal [facility] Comment on above: Performed By: #### B MP, DIFF CBC ####[place] [id number] [facility] Monocytes/100 WBC (Bld) 2 % Normal 2-11 [facility] Comment on above: Performed By: #### B MP, DIFF CBC ####[address] [address] [facility] Myelocytes 1 % High 0-0 [facility] Comment on above: Performed By: #### B MP, DIFF CBC ####[address] [address] [facility] Platelet Estimate Normal Normal Normal [facility] Comment on above: Performed By: #### B MP, DIFF CBC ####[address] [address] [facility] Platelet mean volume (Bld) [Entitic vol] 7.4 fL Normal 6.6-10.1 [facility] Comment on above: Performed By: #### B MP, DIFF CBC ####[address] [address] [facility] Platelet Morphology Normal Normal Normal [facility] Comment on above: Result Comment: PERF ORMED BY:[address] [place] [phone] MEDICAL SILVIA GARCIA M.D. Performed By: #### B MP, DIFF CBC ####[address] [address] [facility] Platelets (Bld) [#/Vol] 429 10*3/uL Normal 150-450 [facility] Comment on above: Performed By: #### B MP, DIFF CBC ####[address] [address] [facility] Poikilocytosis Slight Normal [facility] Comment on above: Performed By: #### B MP, DIFF CBC ####[address] [address] [facility] Polychromasia Slight Normal [facility] Comment on above: Performed By: #### B MP, DIFF CBC ####[address] [address] [facility] RBC (Bld) [#/Vol] 3.16 10*6/uL Low 3.90-5.60 [facility] Comment on above: Performed By: #### B MP, DIFF CBC ####[address] [address] [facility] Segmented neutrophils/100 WBC (Bld) 89 % High 50-70 [facility] Comment on above: Performed By: #### B MP, DIFF CBC ####[address] [address] [facility] WBC (Bld) [#/Vol] 19.6 10*3/uL High 4.1-10.5 [facility] Comment on above: Performed By: #### B MP, DIFF CBC ####[address] [address] [facility] Dipstick and Microscopicon 0 - Appearance (U) Turbid Critically abnormal Clear [facility] Comment on above: Order Comment: Name Collection Type:: Clean-Voided Midstream Performed By: #### U RNA, ADDONUAPLUS, UCREA, CUU ####[address] [address] [facility] Bacteria,Urine 1+ High None Seen [facility] Comment on above: Order Comment: Name Collection Type:: Clean-Voided Midstream Performed By: #### U RNA, ADDONUAPLUS, UCREA, CUU ####[place] [id number] [facility] Bilirubin,Urine 1+ High Negative [facility] Comment on above: Order Comment: Name Collection Type:: Clean-Voided Midstream Performed By: #### U RNA, ADDONUAPLUS, UCREA, CUU ####[address] Color (U) [place] Critically abnormal Yellow [facility] Comment on above: Order Comment: Name Collection Type:: Clean-Voided Midstream Performed By: #### U RNA, ADDONUAPLUS, UCREA, CUU ####[address] Glucose Ql (U) 100 mg/dL High Normal [facility] Comment on above: Order Comment: Name Collection Type:: Clean-Voided Midstream Performed By: #### U RNA, ADDONUAPLUS, UCREA, CUU ####[address] [address] [facility] Hyaline Casts,Urine 5-9 High 0-1 [facility] Comment on above: Order Comment: Name Collection Type:: Clean-Voided Midstream Performed By: #### U RNA, ADDONUAPLUS, UCREA, CUU ####[place] [id number] [facility] Ketones Ql (U) Trace High Negative [facility] Comment on above: Order Comment: Name Collection Type:: Clean-Voided Midstream Performed By: #### U RNA, ADDONUAPLUS, UCREA, CUU ####[place] [id number] [facility] Leukocyte esterase Test strip Ql (U) 2+ High Negative [facility] Comment on above: Order Comment: Name Collection Type:: Clean-Voided Midstream Performed By: #### U RNA, ADDONUAPLUS, UCREA, CUU ####[address] [address] [facility] Nitrite,Urine Positive High Negative [facility] Comment on above: Order Comment: Name Collection Type:: Clean-Voided Midstream Performed By: #### U RNA, ADDONUAPLUS, UCREA, CUU ####[address] [address] [facility] Occult Blood,Urine 3+ High Negative [facility] Comment on above: Order Comment: Name Collection Type:: Clean-Voided Midstream Result Comment: PERF ORMED BY:[place] [address] [place] [place], [place] [phone] MEDICAL DIRECTORJOSEPH GARCIA M.D. Performed By: #### U RNA, ADDONUAPLUS, UCREA, CUU ####[address] [address] [facility] Other Casts,Urine None Seen Normal None Seen [facility] Comment on above: Order Comment: Name Collection Type:: Clean-Voided Midstream Result Comment: PERF ORMED BY:[address] [place], [place] [phone] MEDICAL DIRECTORJOSEPH GARCIA M.D. Performed By: #### U RNA, ADDONUAPLUS, UCREA, CUU ####[address] [address] [facility] pH (U) 5.0 [pH] Normal 5.0-9.0 [facility] Comment on above: Order Comment: Name Collection Type:: Clean-Voided Midstream Performed By: #### U RNA, ADDONUAPLUS, UCREA, CUU ####[address] [address] [facility] Protein (U) [Mass/Vol] 30 mg/dL High Negative [facility] Comment on above: Order Comment: Name Collection Type:: Clean-Voided Midstream Performed By: #### U RNA, ADDONUAPLUS, UCREA, CUU ####[place] [id number] [facility] RBC,Urine 10-19 High 0-4 [facility] Comment on above: Order Comment: Name Collection Type:: Clean-Voided Midstream Performed By: #### U RNA, ADDONUAPLUS, UCREA, CUU ####[address] [address] [facility] Specificy [place],Urine 1.024 Normal 1.001-1.03 0 [facility] Comment on above: Order Comment: Name Collection Type:: Clean-Voided Midstream Performed By: #### U RNA, ADDONUAPLUS, UCREA, CUU ####[address] [address] [facility] Squamous Epithelial Cell,Urine 5-9 High 0-2 [facility] Comment on above: Order Comment: Name Collection Type:: Clean-Voided Midstream Performed By: #### U RNA, ADDONUAPLUS, UCREA, CUU ####[address] [address] [facility] Urobilinogen,Urine Normal Normal Normal [facility] Comment on above: Order Comment: Name Collection Type:: Clean-Voided Midstream Performed By: #### U RNA, ADDONUAPLUS, UCREA, CUU ####[address] [address] [facility] WBC,Urine 20-49 High 0-4 [facility] Comment on above: Order Comment: Name Collection Type:: Clean-Voided Midstream Performed By: #### U RNA, ADDONUAPLUS, UCREA, CUU ####[address] [address] [facility] Glucose Poct Glucometerson 0 - Glucose [Mass/Vol] 221 mg/dL Normal [facility] Comment on above: Result Comment: [facility] Glucose Reference Range is dependent on time and content of last meal. Glucose of more than 200 mg/dL in a nonstressed, ambulatory subject supports the diagnosis of Diabetes Mellitus.PERFORMED BY:[address] [place], [place] [phone] MEDICAL DIRECTORJOSEPH GARCIA M.D. Performed By: #### G LULS ####Point of Care testing, Commemt1 Glu2: Cleaned Meter [facility] Comment on above: Result Comment: PERF ORMED BY:[place] [address] [place] [place], [place] [phone] MEDICAL DIRECTORJOSEPH GARCIA M.D. Performed By: #### G LULS ####Point of Care testing, Glucose [Mass/Vol] 212 mg/dL Normal [facility] Comment on above: Result Comment: [place] Glucose Reference Range is dependent on time and content of last meal. Glucose of more than 200 mg/dL in a nonstressed, ambulatory subject supports the diagnosis of Diabetes Mellitus. Performed By: #### G LULS ####Point of Care testing, Commemt1 Glu2: Cleaned Meter [facility] Comment on above: Result Comment: PERF ORMED BY:[address] [place], [place] [phone] MEDICAL DIRECTORJOSEPH GARCIA M.D. Performed By: #### G LULS ####Point of Care testing, Glucose [Mass/Vol] 253 mg/dL Normal [facility] Comment on above: Result Comment: [place] Glucose Reference Range is dependent on time and content of last meal. Glucose of more than 200 mg/dL in a nonstressed, ambulatory subject supports the diagnosis of Diabetes Mellitus. Performed By: #### G LULS ####Point of Care testing, Glucose [Mass/Vol] 158 mg/dL Normal [facility] Comment on above: Result Comment: [place] Glucose Reference Range is dependent on time and content of last meal. Glucose of more than 200 mg/dL in a nonstressed, ambulatory subject supports the diagnosis of Diabetes Mellitus.PERFORMED BY:[place] [address] [place] [place], [place] [phone] MEDICAL SILVIA GARCIA M.D. Performed By: #### G LULS ####Point of Care testing, Ketones Auto test strip (U) [Mass/Vol]Ordered By: Tello Nava on 07-14-2023 Ketones (U) [Mass/Vol] Trace Negative Fi [facility] Microcytes LM Ql (Bld)Ordere d By: Shun Manning on 07-14-2023 Microcytes Ql (Bld) Slight [facility] Nitrite Test strip Ql (U)Ord ered By: Tello Nava on 07-14-2023 Nitrite Ql (U) Positive Negative [facility] Protein Auto test strip (U) [Mass/Vol]Ordered By: Tello Nava on 07-14-2023 Protein (U) [Mass/Vol] 30 mg/dL Negative Fi [facility] Sodium [Moles/volume] in Uri neOrdered By: Tello Nava on 07-14-2023 Sodium (U) [Moles/Vol] 25.0 mmol/L F [facility] Comment on above: No reference range e stablished Sodium, Urineon 07-14-2023 Sodium (U) [Moles/Vol] 25.0 mmol/L Normal F [facility] Comment on above: Result Comment: No r eference range established Performed By: #### U RNA, JAYNE CHAPARRO CUU ####[facility] Specific gravity Auto test s trip (U) [Rel density]Ordered By: Tello Nava on 07-14-2023 Specific gravity (U) [Rel density] 1.024 1.001-1.03 0 [facility] Squamous epithelial cells de tection in urine sediment by light microscopyOrdered By: Tello Nava on 07-14-2023 Epithelial cells.squamous LM Ql (Urine sed) 5-9 [HPF] 0-2 [facility] Urine Cultureon 07-14-2023 Bacteria identified Cx Nom (U) No Growth 2 Days PERFORMED BY: [facility] [address] [place] [address] PATHOLOGIST SKELP PROCESSOR JOSEPH GARCIA M.D. Normal [facility] Comment on above: Performed By: #### U RNA, ADDONUAPLUS, UCREA, CUU ####[facility] [id number] [place] [address] [facility] Urine bacteria detection by automated methodOrdered By: Tello Nava on 07-14-2023 Bacteria Auto Ql (U) 1+ None Seen [facility] Urine clarity by refractomet ry automatedOrdered By: Tello Nava on 07-14-2023 Clarity Refractometry automated (U) Turbid Clear [facility] Urine culture routineOrdered By: Tello Nava on 07-14-2023 Bacteria identified Cx Nom (U) No Growth 2 Days [facility] Urine glucose measurement by automated test strip (mass/volume)Ordered By: Tello Nava on 07-14-2023 Glucose Auto test strip (U) [Mass/Vol] 100 mg/dL Normal [facility] Urine hemoglobin detection b y automated test stripOrdered By: Tello Nava on 07-14-2023 Hemoglobin Auto test strip Ql (U) 3+ Negative [facility] Urine leukocyte esterase det ection by automated test stripOrdered By: Tello Nava on 07-14-2023 Leukocyte esterase Auto test strip Ql (U) 2+ Negative [facility] Urobilinogen Auto test strip (U) [Mass/Vol]Ordered By: Tello Nava on 07-14-2023 Urobilinogen (U) [Mass/Vol] Normal mg/dL Normal [facility] pH Auto test strip (U)Ordere d By: Tello Nava on 07-14-2023 pH (U) 5.0 [pH] 5.0-9.0 [facility] Basic Metabolic Panelon 06-26 Anion gap [Moles/Vol] 11.2 mmol/L Normal 6.0-15.0 [facility] Comment on above: Performed By: #### C OUSMANE DING ####[facility] [address] [place] [id number] [facility] Calcium [Mass/Vol] 7.5 mg/dL Low 8.6-10.3 [facility] Comment on above: Performed By: #### C TOÑA BMP ####[facility] [place] [address] [facility] Chloride [Moles/Vol] 98 mmol/L Normal 98-107 [facility] Comment on above: Performed By: #### C TOÑA, BMP ####[address] [place] [address] [facility] CO2 [Moles/Vol] 22.6 mmol/L Normal 21.0-31.0 [facility] Comment on above: Performed By: #### C TOÑA, BMP ####[place] [place] [id number] [facility] Creatinine [Mass/Vol] 2.79 mg/dL Significan t change up 0.70-1.30 [facility] Comment on above: Performed By: #### C TOÑA, BMP ####[place] [phone] [facility] Creatinine Clr Calc Pharmacy 27.15 Normal [facility] Comment on above: Result Comment: PERF ORMED BY:[address] [place], [place] [phone] MEDICAL SILVIA GARCIA M.D. Performed By: #### C TOÑA, BMP ####[place] [id number] [facility] GFR/1.73 sq M.predicted MDRD (S/P/Bld) [Vol rate/Area] 23.490 mL/min/{1.73_m2} Normal [facility] Comment on above: Performed By: #### C TOÑA, BMP ####[place] [id number] [facility] Glucose [Mass/Vol] 189 mg/dL High 70-100 [facility] Comment on above: Result Comment: [place] Glucose Reference Range is dependent on time and content of last meal. Glucose of more than 200 mg/dL in a nonstressed, ambulatory subject supports the diagnosis of Diabetes Mellitus. ADA recommended reference range Performed By: #### C TOÑA, BMP ####[place] [id number] [facility] Potassium [Moles/Vol] 3.8 mmol/L Normal 3.5-5.1 [facility] Comment on above: Performed By: #### C TOÑA, OUSMANE ####[facility] [address] [place] [address] [facility] Sodium [Moles/Vol] 128 mmol/L Low 136-145 [facility] Comment on above: Performed By: #### C TOÑA, BMP ####[facility] [address] [place] [address] [facility] Urea nitrogen [Mass/Vol] 43 mg/dL High 7-25 [facility] Comment on above: Performed By: #### C TOÑA, BMP ####[facility] [id number] [place] [address] [facility] Glucose Poct Glucometerson 0 07-13-2023 Glucose [Mass/Vol] 235 mg/dL Normal [facility] Comment on above: Result Comment: [facility] Glucose Reference Range is dependent on time and content of last meal. Glucose of more than 200 mg/dL in a nonstressed, ambulatory subject supports the diagnosis of Diabetes Mellitus.PERFORMED BY:[place] [address] [address] [place] [place], [place] [phone] MEDICAL DIRECTORJOSEPH GARCIA M.D. Performed By: #### G LULS ####Point of Care testing, Commemt1 Glu2: Cleaned Meter Normal [facility] Comment on above: Result Comment: PERF ORMED BY:[place] [address] [address] [place], [place] [phone] MEDICAL SILVIA GARCIA M.D. Performed By: #### G LULS ####Point of Care testing, Glucose [Mass/Vol] 230 mg/dL Normal [facility] Comment on above: Result Comment: [place] Glucose Reference Range is dependent on time and content of last meal. Glucose of more than 200 mg/dL in a nonstressed, ambulatory subject supports the diagnosis of Diabetes Mellitus. Performed By: #### G LULS ####Point of Care testing, Glucose [Mass/Vol] 190 mg/dL Normal [facility] Comment on above: Result Comment: [facility] Glucose Reference Range is dependent on time and content of last meal. Glucose of more than 200 mg/dL in a nonstressed, ambulatory subject supports the diagnosis of Diabetes Mellitus.PERFORMED BY:[place] [address] [place], [place] [phone] MEDICAL DIRECTORJOSEPH GARCIA M.D. Performed By: #### G LULS ####Point of Care testing, Glucose [Mass/Vol] 202 mg/dL Normal [facility] Comment on above: Result Comment: [facility] Glucose Reference Range is dependent on time and content of last meal. Glucose of more than 200 mg/dL in a nonstressed, ambulatory subject supports the diagnosis of Diabetes Mellitus.PERFORMED BY:[place] [address] [place], [place] [phone] MEDICAL DIRECTORJOSEPH GARCIA M.D. Performed By: #### G VALERY ####Point of Care testing, Glucose [Mass/Vol] 168 mg/dL Normal [facility] Comment on above: Result Comment: [facility] Glucose Reference Range is dependent on time and content of last meal. Glucose of more than 200 mg/dL in a nonstressed, ambulatory subject supports the diagnosis of Diabetes Mellitus.PERFORMED BY:[place] [address] [place], [place] [phone] MEDICAL SILVIA GARCIA M.D. Performed By: #### G LUANURAG ####Point of Care testing, Hemogram CBC Without Diffon 07-13-2023 Erythrocyte distribution width (RBC) [Ratio] 13.3 % Normal 12.0-14.8 [facility] Comment on above: Performed By: #### C OUSMANE DING ####[address] [address] [facility] Hematocrit (Bld) [Volume fraction] 28.9 % Low 38.8-50.0 [facility] Comment on above: Performed By: #### C TOÑA, BMP ####[address] [address] [place] Hemoglobin (Bld) [Mass/Vol] 9.9 g/dL Low 13.0-17.0 [facility] Comment on above: Performed By: #### C TOÑA, BMP ####[place] [phone] [facility] MCH (RBC) [Entitic mass] 30.2 pg Normal 27.5-35.2 [facility] Comment on above: Performed By: #### C TOÑA, BMP ####[address] MCV (RBC) [Entitic vol] 87.6 fL Normal 83.5-101 [facility] Comment on above: Performed By: #### C TOÑA, BMP ####[address] Mean Corpuscular HGB Conc 34.5 g/dL Normal 32.5-35.6 [facility] Comment on above: Performed By: #### Trell DING, BMP ####[address] Platelet mean volume (Bld) [Entitic vol] 7.4 fL Normal 6.6-10.1 [facility] Comment on above: Result Comment: PERF ORMED BY:[address] [place], [place] [phone] MEDICAL SILVIA GARCIA M.D. Performed By: #### C TOÑA, BMP ####[place] [phone] [facility] Platelets (Bld) [#/Vol] 433 10*3/uL Normal 150-450 [facility] Comment on above: Performed By: #### C TOÑA, BMP ####[place] [phone] [facility] RBC (Bld) [#/Vol] 3.29 10*6/uL Low 3.90-5.60 [facility] Comment on above: Performed By: #### C TOÑA, BMP ####[address] WBC (Bld) [#/Vol] 22.4 10*3/uL High 4.1-10.5 [facility] Comment on above: Performed By: #### C BCBELLA, BMP ####[address] US renal BIon 07-13-2023 US renal BI Normal [facility] Vancomycin [Mass/volume] in Serum or Plasma --peakOrdered By: Arnaldo Thomas on 07-13-2023 Vancomycin peak [Mass/Vol] 13.9 ug/mL 20.0-40.0 [facility] Comment on above: Last dose: - Vancomycin,Peakon 07-13-2023 Vancomycin,Peak 13.9 ug/mL Low 20.0-40.0 [facility] Comment on above: Order Comment: Comme nt ?DRAW 1 HOUR AFTER INFUSION COMPLETES Date of last dose?: [id number] Time of last dose?: 2099 Result Comment: Last dose: -PERFORMED BY:[address] [place], [place] [phone] MEDICAL DIRECTORJOSEPH GARCIA M.D. Performed By: #### V ANCP ####[place] [id number] [facility] Basic Metabolic Panelon 06-26 Anion gap [Moles/Vol] 12.3 mmol/L Normal 6.0-15.0 [facility] Comment on above: Performed By: #### B MP, SCAN CBC ####[address] Calcium [Mass/Vol] 7.6 mg/dL Low 8.6-10.3 [facility] Comment on above: Performed By: #### B MP, SCAN CBC ####[address] Chloride [Moles/Vol] 102 mmol/L Normal 98-107 [facility] Comment on above: Performed By: #### B MP, SCAN CBC ####[address] CO2 [Moles/Vol] 21.4 mmol/L Normal 21.0-31.0 [facility] Comment on above: Performed By: #### B MP, SCAN CBC ####[facility] [id number] [place] [id number] [facility] Creatinine [Mass/Vol] 1.17 mg/dL Normal 0.70-1.30 [facility] Comment on above: Performed By: #### B MP, SCAN CBC ####[facility] [id number] [place] [id number] [facility] Creatinine Clr Calc Pharmacy 64.74 Normal [facility] Comment on above: Result Comment: PERF ORMED BY:[address] LATamikoTracyLUZ [place], [place] [phone] MEDICAL DIRECTORJOSEPH GARCIA M.D. Performed By: #### B MP, SCAN CBC ####[address] [place] [id number] [facility] GFR/1.73 sq M.predicted MDRD (S/P/Bld) [Vol rate/Area] mL/min/{1.73_m2} [facility] Comment on above: Performed By: #### B MP, SCAN CBC ####[facility] [id number] [place] [id number] [facility] Glucose [Mass/Vol] 160 mg/dL High 70-100 [facility] Comment on above: Result Comment: [place] Glucose Reference Range is dependent on time and content of last meal. Glucose of more than 200 mg/dL in a nonstressed, ambulatory subject supports the diagnosis of Diabetes Mellitus. ADA recommended reference range Performed By: #### B MP, SCAN CBC ####[facility] [id number] [place] [id number] [place] Potassium [Moles/Vol] 3.7 mmol/L Normal 3.5-5.1 [facility] Comment on above: Performed By: #### B MP, SCAN CBC ####[facility] [id number] [place] [id number] [facility] Sodium [Moles/Vol] 132 mmol/L Low 136-145 [facility] Comment on above: Performed By: #### B MP, SCAN CBC ####[facility] [id number] [place] [address] [place] Urea nitrogen [Mass/Vol] 31 mg/dL High 7-25 [facility] Comment on above: Performed By: #### B MP, SCAN CBC ####[facility] [id number] [place] [address] [facility] Glucose Poct Glucometerson 0 07-12-2023 Glucose [Mass/Vol] 185 mg/dL Normal [facility] Comment on above: Result Comment: [place] Glucose Reference Range is dependent on time and content of last meal. Glucose of more than 200 mg/dL in a nonstressed, ambulatory subject supports the diagnosis of Diabetes Mellitus.PERFORMED BY:[place] [address] [place], [place] [phone] MEDICAL DIRECTORJOSEPH GARCIA M.D. Performed By: #### G LULS ####Point of Care testing, Commemt1 Glu2: Cleaned Meter Normal [facility] Comment on above: Result Comment: PERF ORMED BY:[address] [address] [place], [place] [phone] MEDICAL DIRECTORJOSEPH GARCIA M.D. Performed By: #### G LULS ####Point of Care testing, Glucose [Mass/Vol] 200 mg/dL Normal [facility] Comment on above: Result Comment: [place] om Glucose Reference Range is dependent on time and content of last meal. Glucose of more than 200 mg/dL in a nonstressed, ambulatory subject supports the diagnosis of Diabetes Mellitus. Performed By: #### G LULS ####Point of Care testing, Glucose [Mass/Vol] 213 mg/dL Normal [facility] Comment on above: Result Comment: [place] om Glucose Reference Range is dependent on time and content of last meal. Glucose of more than 200 mg/dL in a nonstressed, ambulatory subject supports the diagnosis of Diabetes Mellitus.PERFORMED BY:[place] [address] [place], [place] [phone] MEDICAL DIRECTORJOSEPH GARCIA M.D. Performed By: #### G LULS ####Point of Care testing, Glucose [Mass/Vol] 180 mg/dL Normal [facility] Comment on above: Result Comment: [facility] Glucose Reference Range is dependent on time and content of last meal. Glucose of more than 200 mg/dL in a nonstressed, ambulatory subject supports the diagnosis of Diabetes Mellitus.PERFORMED BY:[address] [place], [place] [phone] MEDICAL DIRECTORJOSEPH GARCIA M.D. Performed By: #### G LULS ####Point of Care testing, Scan and CBCon 07-12-2023 Acanthocytes Slight Normal [facility] Comment on above: Performed By: #### B MP, SCAN CBC ####[address] [address] [facility] Anisocytosis Ql (Bld) Slight Normal [facility] Comment on above: Performed By: #### B MP, SCAN CBC ####[address] [address] [facility] Basophils (Bld) [#/Vol] 0.1 10*3/uL Normal 0.0-0.2 [facility] Comment on above: Performed By: #### B MP, SCAN CBC ####[address] [address] [facility] Basophils/100 WBC (Bld) 0.3 % Normal . [facility] Comment on above: Performed By: #### B MP, SCAN CBC ####[address] [address] [facility] Eosinophils (Bld) [#/Vol] 0.2 10*3/uL Normal 0.0-0.45 [facility] Comment on above: Performed By: #### B MP, SCAN CBC ####[address] [place] [address] [facility] Eosinophils/100 WBC (Bld) 0.7 % Normal . [facility] Comment on above: Performed By: #### B MP, SCAN CBC ####[place] [place] [address] [place] [id number] [facility] Erythrocyte distribution width (RBC) [Ratio] 13.5 % Normal 12.0-14.8 [facility] Comment on above: Performed By: #### B MP, SCAN CBC ####[place] [id number] [facility] Hematocrit (Bld) [Volume fraction] 30.1 % Low 38.8-50.0 [facility] Comment on above: Performed By: #### B MP, SCAN CBC ####[place] [id number] [facility] Hemoglobin (Bld) [Mass/Vol] 10.1 g/dL Low 13.0-17.0 [facility] Comment on above: Performed By: #### B MP, SCAN CBC ####[place] [id number] [facility] Lymphocytes (Bld) [#/Vol] 1.4 10*3/uL Normal 1.00-4.8 [facility] Comment on above: Performed By: #### B MP, SCAN CBC ####[place] [id number] [facility] Lymphocytes/100 WBC (Bld) 5.3 % Normal . [facility] Comment on above: Performed By: #### B MP, SCAN CBC ####[place] [id number] [facility] MCH (RBC) [Entitic mass] 29.8 pg Normal 27.5-35.2 [facility] Comment on above: Performed By: #### B MP, SCAN CBC ####[place] [id number] [facility] MCV (RBC) [Entitic vol] 88.5 fL Normal 83.5-101 [facility] Comment on above: Performed By: #### B MP, SCAN CBC ####[place] [id number] [facility] Mean Corpuscular HGB Conc 33.6 g/dL Normal 32.5-35.6 [facility] Comment on above: Performed By: #### B MP, SCAN CBC ####[address] [place] [address] [facility] Microcytosis Slight Normal [facility] Comment on above: Performed By: #### B MP, SCAN CBC ####[address] [address] [facility] Monocytes (Bld) [#/Vol] 2.6 10*3/uL High 0.0-0.8 [facility] Comment on above: Performed By: #### B MP, SCAN CBC ####[address] [address] [facility] Monocytes/100 WBC (Bld) 9.6 % Normal . [facility] Comment on above: Performed By: #### B MP, SCAN CBC ####[address] [address] [facility] Neutrophils (Bld) [#/Vol] 22.9 10*3/uL High 1.8-7.7 [facility] Comment on above: Performed By: #### B MP, SCAN CBC ####[address] [address] [facility] Neutrophils/100 WBC (Bld) 84.1 % Normal . [facility] Comment on above: Performed By: #### B MP, SCAN CBC ####[address] [address] [facility] NRBC% 0.0 /100{WBC} Normal 0-0.5 [facility] Comment on above: Performed By: #### B MP, SCAN CBC ####[address] [address] [facility] Platelet Estimate Normal Normal Normal [facility] Comment on above: Performed By: #### B MP, SCAN CBC ####[address] [address] [facility] Platelet mean volume (Bld) [Entitic vol] 7.7 fL Normal 6.6-10.1 [facility] Comment on above: Performed By: #### B MP, SCAN CBC ####[address] [address] [facility] Platelet Morphology Normal Normal Normal [facility] Comment on above: Result Comment: PERF ORMED BY:[place] [address] [place], [place] [phone] MEDICAL DIRECTORJOSEPH GARCIA M.D. Performed By: #### B MP, SCAN CBC ####[address] [address] [facility] Platelets (Bld) [#/Vol] 451 10*3/uL High 150-450 [facility] Comment on above: Performed By: #### B MP, SCAN CBC ####[address] [place] [address] [facility] Poikilocytosis Slight Normal [facility] Comment on above: Performed By: #### B MP, SCAN CBC ####[address] [address] [facility] RBC (Bld) [#/Vol] 3.40 10*6/uL Low 3.90-5.60 [facility] Comment on above: Performed By: #### B MP, SCAN CBC ####[address] [place] [address] [facility] WBC (Bld) [#/Vol] 27.3 10*3/uL High 4.1-10.5 [facility] Comment on above: Performed By: #### B MP, SCAN CBC ####[place] [id number] [facility] A1C with Estimated Average G [facility] 07-11-2023 Glucose [Mass/Vol] 186 mg/dL Normal [facility] Comment on above: Result Comment: PERF ORMED BY:[place] [address] [place], [place] [phone] MEDICAL DIRECTORJOSEPH GARCIA M.D. Performed By: #### A 1C WTH eA, MG, DIFF CBC, BMP ####[address] [address] [facility] HbA1c (Bld) [Mass fraction] 8.1 % High 4.3-5.6 [facility] Comment on above: Result Comment: Incr eased risk for diabetes: 5.7 - 6.4 diabetes: >6.4 glycemic control for adults with diabetes: <7.0 Performed By: #### A 1C WTH eA, MG, DIFF CBC, BMP ####[facility] [place] [address] [facility] Activated partial thrombopla stin time (aPTT) in platelet poor plasma by coagulation aOrdered By: Jesica Juan on 07-11-2023 aPTT Coag (PPP) [Time] 28.7 s 25.1-36.5 [facility] Comment on above: A hematocrit value g reater than 55% may lead to inaccurate results in coagulation testing. Patients having hematocrit values >55% require a special collection tube for coagulation studies. Please contact the laboratory at [phone] for redraw instructions. Aerobic Cultureon 07-11-2023 Aerobic Culture Normal [facility] Comment on above: Performed By: #### G S, AERC ####[place] [address] [place] [id number] [facility] Basic Metabolic Panelon 06-26 Anion gap [Moles/Vol] 11.6 mmol/L Normal 6.0-15.0 [facility] Comment on above: Performed By: #### A 1C WTH eA, MG, DIFF CBC, BMP ####[address] [place] [address] [facility] Calcium [Mass/Vol] 7.4 mg/dL Significant change down 8.6-10.3 [facility] Comment on above: Performed By: #### A 1C WTH eA, MG, DIFF CBC, BMP ####[address] [place] [address] [facility] Chloride [Moles/Vol] 102 mmol/L Normal 98-107 [facility] Comment on above: Performed By: #### A 1C WTH eA, MG, DIFF CBC, BMP ####[place] [place] [address] [facility] CO2 [Moles/Vol] 22.0 mmol/L Normal 21.0-31.0 [facility] Comment on above: Performed By: #### A 1C WTH eA, MG, DIFF CBC, BMP ####[place] [address] Creatinine [Mass/Vol] 1.07 mg/dL Normal 0.70-1.30 [facility] Comment on above: Performed By: #### A 1C WTH eA, MG, DIFF CBC, BMP ####[place] [address] [place] Creatinine Clr Calc Pharmacy 69.79 [facility] [place] Comment on above: Performed By: #### A 1C WTH eA, MG, DIFF CBC, BMP ####[place] [address] [place] GFR/1.73 sq M.predicted MDRD (S/P/Bld) [Vol rate/Area] mL/min/{1.73_m2} [facility] [place] Comment on above: Performed By: #### A 1C WTH eA, MG, DIFF CBC, BMP ####[address] Glucose [Mass/Vol] 206 mg/dL Significant change up 70-100 [facility] Comment on above: Result Comment: [facility] Glucose Reference Range is dependent on time and content of last meal. Glucose of more than 200 mg/dL in a nonstressed, ambulatory subject supports the diagnosis of Diabetes Mellitus. ADA recommended reference range Performed By: #### A 1C WTH eA, MG, DIFF CBC, BMP ####[address] Potassium [Moles/Vol] 3.6 mmol/L Normal 3.5-5.1 [facility] Comment on above: Performed By: #### A 1C WTH eA, MG, DIFF CBC, BMP ####[place] [id number] [facility] Sodium [Moles/Vol] 132 mmol/L Low 136-145 [facility] Comment on above: Performed By: #### A 1C WTH eA, MG, DIFF CBC, BMP ####[address] [place] [address] [facility] Urea nitrogen [Mass/Vol] 25 mg/dL Normal 7-25 [facility] Comment on above: Performed By: #### A 1C WTH eA, MG, DIFF CBC, BMP ####[address] [place] [address] [facility] Diff and CBCon 07-11-2023 Acanthocytes Slight Normal [facility] Comment on above: Performed By: #### A 1C WTH eA, MG, DIFF CBC, BMP ####[address] [address] [facility] Anisocytosis Ql (Bld) Slight Normal [facility] Comment on above: Performed By: #### A 1C WTH eA, MG, DIFF CBC, BMP ####[place] [id number] [facility] Band form neutrophils/100 WBC (Bld) 3 % Normal 0-5 [facility] Comment on above: Performed By: #### A 1C WTH eA, MG, DIFF CBC, BMP ####[place] [id number] [facility] Eosinophils/100 WBC (Bld) 1 % Normal 1-3 [facility] Comment on above: Performed By: #### A 1C WTH eA, MG, DIFF CBC, BMP ####[address] [address] [facility] Erythrocyte distribution width (RBC) [Ratio] 13.3 % Normal 12.0-14.8 [facility] Comment on above: Performed By: #### A 1C WTH eA, MG, DIFF CBC, BMP ####[place] [id number] [facility] Hematocrit (Bld) [Volume fraction] 30.9 % Low 38.8-50.0 [facility] Comment on above: Performed By: #### A 1C WTH eA, MG, DIFF CBC, BMP ####[address] [address] [facility] Hemoglobin (Bld) [Mass/Vol] 10.3 g/dL Low 13.0-17.0 [facility] Comment on above: Performed By: #### A 1C WTH eA, MG, DIFF CBC, BMP ####[address] Lymphocytes/100 WBC (Bld) 6 % Low 18-42 [facility] Comment on above: Performed By: #### A 1C WTH eA, MG, DIFF CBC, BMP ####[address] MCH (RBC) [Entitic mass] 29.6 pg Normal 27.5-35.2 [facility] Comment on above: Performed By: #### A 1C WTH eA, MG, DIFF CBC, BMP ####[address] MCV (RBC) [Entitic vol] 88.9 fL Normal 83.5-101 [facility] Comment on above: Performed By: #### A 1C WTH eA, MG, DIFF CBC, BMP ####[address] Mean Corpuscular HGB Conc 33.3 g/dL Normal 32.5-35.6 [facility] Comment on above: Performed By: #### A 1C WTH eA, MG, DIFF CBC, BMP ####[address] Metamyelocytes 2 % High 0-0 [facility] Comment on above: Performed By: #### A 1C WTH eA, MG, DIFF CBC, BMP ####[address] Microcytosis Moderate Normal [facility] Comment on above: Performed By: #### A 1C WTH eA, MG, DIFF CBC, BMP ####[address] Monocytes/100 WBC (Bld) 3 % Normal 2-11 [facility] Comment on above: Performed By: #### A 1C WTH eA, MG, DIFF CBC, BMP ####[place] [address] [facility] Platelet Estimate Normal Normal Normal [facility] Comment on above: Performed By: #### A 1C WTH eA, MG, DIFF CBC, BMP ####[address] Platelet mean volume (Bld) [Entitic vol] 7.7 fL Normal 6.6-10.1 [facility] Comment on above: Performed By: #### A 1C WTH eA, MG, DIFF CBC, BMP ####[address] Platelet Morphology Normal Normal Normal [facility] Comment on above: Result Comment: PERF ORMED BY:[address] [place], [place] [phone] MEDICAL DIRECTORJOSEPH GARCIA M.D. Performed By: #### A 1C WTH eA, MG, DIFF CBC, BMP ####[address] Platelets (Bld) [#/Vol] 408 10*3/uL Normal 150-450 [facility] Comment on above: Performed By: #### A 1C WTH eA, MG, DIFF CBC, BMP ####[address] Polychromasia Slight Normal [facility] Comment on above: Performed By: #### A 1C WTH eA, MG, DIFF CBC, BMP ####[address] RBC (Bld) [#/Vol] 3.47 10*6/uL Low 3.90-5.60 [facility] Comment on above: Performed By: #### A 1C WTH eA, MG, DIFF CBC, BMP ####[address] Segmented neutrophils/100 WBC (Bld) 86 % High 50-70 [facility] Comment on above: Performed By: #### A 1C WTH eA, MG, DIFF CBC, BMP ####[address] [address] [facility] WBC (Bld) [#/Vol] 30.0 10*3/uL High 4.1-10.5 [facility] Comment on above: Performed By: #### A 1C WTH eA, MG, DIFF CBC, BMP ####[facility] [id number] [place] [address] [facility] ECG 12 lead ECGon 07-11-2023 ECG 12 lead ECG Normal [facility] Glucose Poct Glucometerson 0 07-11-2023 Glucose [Mass/Vol] 197 mg/dL Normal [facility] Comment on above: Result Comment: [place] Glucose Reference Range is dependent on time and content of last meal. Glucose of more than 200 mg/dL in a nonstressed, ambulatory subject supports the diagnosis of Diabetes Mellitus.PERFORMED BY:[place] [address] [address] [place], [place] [phone] MEDICAL DIRECTORJOSEPH GARCIA M.D. Performed By: #### G LULS ####Point of Care testing, Commemt1 Glu2: Cleaned Meter [facility] Comment on above: Result Comment: PERF ORMED BY:[address] [address] [address] [place], [place] [phone] MEDICAL SILVIA GARCIA M.D. Performed By: #### G LULS ####Point of Care testing, Glucose [Mass/Vol] 159 mg/dL Normal [facility] Comment on above: Result Comment: [place] Glucose Reference Range is dependent on time and content of last meal. Glucose of more than 200 mg/dL in a nonstressed, ambulatory subject supports the diagnosis of Diabetes Mellitus. Performed By: #### G LULS ####Point of Care testing, Commemt1 Glu2: Cleaned Meter [facility] Comment on above: Result Comment: PERF ORMED BY:[place] [address] [address] [place], [place] [phone] MEDICAL DIRECTORJOSEPH GARCIA M.D. Performed By: #### G LULS ####Point of Care testing, Glucose [Mass/Vol] 172 mg/dL Normal [facility] Comment on above: Result Comment: [place] om Glucose Reference Range is dependent on time and content of last meal. Glucose of more than 200 mg/dL in a nonstressed, ambulatory subject supports the diagnosis of Diabetes Mellitus. Performed By: #### G LULS ####Point of Care testing, Commemt1 Glu2: Cleaned Meter Normal [facility] Comment on above: Result Comment: PERF ORMED BY:[facility] [place]ikoTracy[place], [place] [phone] MEDICAL DIRECTORJOSEPH GARCIA M.D. Performed By: #### G LULS ####Point of Care testing, Glucose [Mass/Vol] 172 mg/dL Normal [facility] Comment on above: Result Comment: [place] om Glucose Reference Range is dependent on time and content of last meal. Glucose of more than 200 mg/dL in a nonstressed, ambulatory subject supports the diagnosis of Diabetes Mellitus. Performed By: #### G LULS ####Point of Care testing, Glucose mean value [Mass/vol ume] in Blood Estimated from glycated hemoglobinOrdered By: Jesica Juan on 07-11-2023 Average glucose Estimated from glycated hemoglobin (Bld) [Mass/Vol] 186 mg/dL [facility] Gram Stainon 07-11-2023 Microscopic observation Gram stain Nom (Unsp spec) Comment deep wound culture left foot Gram Stain Result 1+ Gram Positive Cocci 2+ White Blood Cells PERFORMED BY: [facility] [address] [place] [address] PATHOLOGIST SKELP PROCESSOR JOSEPH GARCIA M.D. [facility] Comment on above: Performed By: #### G S, AERC ####[facility] [place] [address] [facility] Microscopic observation Gram stain Nom (Unsp spec) Comment 5th metatarsal bone culture Gram Stain Result 2+ White Blood Cells No Bacteria Seen PERFORMED BY: [facility] [address] [place] [address] PATHOLOGIST SKELP PROCESSOR JOSEPH GARCIA M.D. [facility] Comment on above: Performed By: #### G S, AERC ####[facility] [id number] [place] [address] [facility] Gram stain for investigation of transfusion reactionOrdered By: Rohan Han on 07-11-2023 Microscopic observation Gram stain Nom (Unsp spec) Anaerococcus vaginalis [facility] Microscopic observation Gram stain Nom (Unsp spec) Staphylococcus aureus [facility] Hemoglobin A1c percentageOrd ered By: Jesica Juan on 07-11-2023 HbA1c (Bld) [Mass fraction] 8.1 % 4.3-5.6 [facility] Comment on above: Increased risk for d iabetes: 5.7 - 6.4diabetes: >6.4glycemic control for adults with diabetes: <7.0 INR in Platelet poor plasma by Coagulation assayOrdered By: Jesica Juan on 07-11-2023 INR Coag (PPP) [Relative time] 1.1 {INR} [facility] Comment on above: INR Therapeutic Rang e A) Pre- and Peroperative OAT started two weeks before surgery. NOT HIP SURGERY: 1.5 - 2.5 HIP SURGERY: 2 - 3B) Primary and secondary prevention of venous THROMBOSIS: 2 - 3C) Active venous thrombosis, pulmonary embolismand prevention of recurrent venous thrombosis: 2 - 3D) Prevention of arterial thromboembolismincluding patients with mechanical heart valves: 3 - 4.5 Neil 07-11-2023 L Normal [facility] Lactic Acid Reflexon 024 Lactic Acid Reflex 1.2 mmol/L Normal 0.5-2.2 [facility] Comment on above: Result Comment: PERF ORMED BY:[facility] [place], [place] [phone] MEDICAL DIRECTORJOSEPH GARCIA M.D. Performed By: #### L ACTIC RFX ####[facility] [id number] [place] [address] [facility] MR foot LT wo conon 07-11-19 24 MR foot LT wo con Normal [facility] Magnesiumon 07-11-2023 Magnesium [Mass/Vol] 1.7 mg/dL Low 1.9-2.7 [facility] Comment on above: Result Comment: PERF ORMED BY:[place] [address] [address] [place], [place] [phone] MEDICAL DIRECTORJOSEPH GARCIA M.D. Performed By: #### A 1C WTH eA, MG, DIFF CBC, BMP ####[address] [place] [address] [facility] Magnesium [Mass/volume] in S erne or PlasmaOrdered By: Jesica Juan on 07-11-2023 Magnesium [Mass/Vol] 1.7 mg/dL 1.9-2.7 [facility] Partial Thromboplastin Timeo n 07-11-2023 aPTT Coag (Bld) [Time] 28.7 s Normal 25.1-36.5 [facility] Comment on above: Result Comment: A he matocrit value greater than 55% may lead to inaccurate results in coagulation testing. Patients having hematocrit values >55% require a special collection tube for coagulation studies. Please contact the laboratory at [phone] for redraw instructions.PERFORMED BY:[place] [address] [address] LOYATracyLUZ [place], [place] [phone] MEDICAL DIRECTORJOSEPH GARCIA M.D. Performed By: #### P TT, PT ####[address] [address] [facility] Prothrombin Time INRon 07-11 INR Coag (PPP) [Relative time] 1.1 {INR} Normal [facility] Comment on above: Result Comment: INR Therapeutic Range A) Pre- and Peroperative OAT started two weeks before surgery. NOT HIP SURGERY: 1.5 - 2.5 HIP SURGERY: 2 - 3 B) Primary and secondary prevention of venous THROMBOSIS: 2 - 3 C) Active venous thrombosis, pulmonary embolism and prevention of recurrent venous thrombosis: 2 - 3 D) Prevention of arterial thromboembolism including patients with mechanical heart valves: 3 - 4.5 Performed By: #### P TT, PT ####[address] [address] [facility] PT Coag (PPP) [Time] 12.7 s Normal 9.0-12.9 [facility] Comment on above: Result Comment: A he matocrit value greater than 55% may lead to inaccurate results in coagulation testing. Patients having hematocrit values >55% require a special collection tube for coagulation studies. Please contact the laboratory at [phone] for redraw instructions. Performed By: #### P TT, PT ####[facility] [place] [address] [facility] Prothrombin time (PT)Ordered By: Jesica Juan on 07-11-2023 PT Coag (PPP) [Time] 12.7 s 9.0-12.9 [facility] Comment on above: A hematocrit value g reater than 55% may lead to inaccurate results in coagulation testing. Patients having hematocrit values >55% require a special collection tube for coagulation studies. Please contact the laboratory at [phone] for redraw instructions. US arterial pvr rest Kerry US arterial pvr rest LE Normal [facility] XR foot LT 2Von 07-11-2023 XR foot LT 2V Normal [facility] Bacteria identified Aer cx N om (Unsp spec)Ordered By: Brittney Hudson on 07-10-2023 Superficial Wound Culture Staphylococcus aureus [facility] Bacterial blood cultureOrder ed By: Brittney Hudson on 07-10-2023 Bacteria identified Cx Nom (Bld) NO GROWTH 5 DAYS [facility] Bacteria identified Cx Nom (Bld) NO GROWTH 5 DAYS [facility] Basic Metabolic Panelon 06-26 Anion gap [Moles/Vol] 15.8 mmol/L High 6.0-15.0 [facility] Comment on above: Performed By: #### C UBLD, MG, LACTIC, SCAN CBC, CRP, BMP ####[facility] [place] [address] [facility] Calcium [Mass/Vol] 9.1 mg/dL Normal 8.6-10.3 [facility] Comment on above: Performed By: #### C UBLD, MG, LACTIC, SCAN CBC, CRP, BMP ####[address] [place] [address] [facility] Chloride [Moles/Vol] 98 mmol/L Normal 98-107 [facility] Comment on above: Performed By: #### C UBLD, MG, LACTIC, SCAN CBC, CRP, BMP ####[address] [place] [id number] [facility] CO2 [Moles/Vol] 25.5 mmol/L Normal 21.0-31.0 [facility] Comment on above: Performed By: #### C UBLD, MG, LACTIC, SCAN CBC, CRP, BMP ####[place] [place] [id number] [facility] Creatinine [Mass/Vol] 1.23 mg/dL Normal 0.70-1.30 [facility] Comment on above: Performed By: #### C UBLD, MG, LACTIC, SCAN CBC, CRP, BMP ####[place] [address] Creatinine Clr Calc Pharmacy 59.59 [facility] [place] Comment on above: Result Comment: PERF ORMED BY:[address] [place], [place] [phone] MEDICAL DIRECTORJOSEPH GARCIA M.D. Performed By: #### C UBLD, MG, LACTIC, SCAN CBC, CRP, BMP ####[place] [id number] [facility] GFR/1.73 sq M.predicted MDRD (S/P/Bld) [Vol rate/Area] mL/min/{1.73_m2} [facility] Comment on above: Performed By: #### C UBLD, MG, LACTIC, SCAN CBC, CRP, BMP ####[place] [id number] [facility] Glucose [Mass/Vol] 57 mg/dL Low 70-100 [facility] Comment on above: Result Comment: [place] Glucose Reference Range is dependent on time and content of last meal. Glucose of more than 200 mg/dL in a nonstressed, ambulatory subject supports the diagnosis of Diabetes Mellitus. ADA recommended reference range Performed By: #### C UBLD, MG, LACTIC, SCAN CBC, CRP, BMP ####[place] [id number] [place] Potassium [Moles/Vol] 3.3 mmol/L Low 3.5-5.1 [facility] Comment on above: Performed By: #### C UBLD, MG, LACTIC, SCAN CBC, CRP, BMP ####[place] [place] [address] [place] [id number] [facility] Sodium [Moles/Vol] 136 mmol/L Normal 136-145 [facility] Comment on above: Performed By: #### C UBLD, MG, LACTIC, SCAN CBC, CRP, BMP ####[place] [address] Urea nitrogen [Mass/Vol] 23 mg/dL Normal 7-25 [facility] Comment on above: Performed By: #### C UBLD, MG, LACTIC, SCAN CBC, CRP, BMP ####[address] Basophils Auto (Bld) [#/Vol] Ordered By: Brittney Hudson on 07-10-2023 Basophils (Bld) [#/Vol] 0.0 10*3/uL 0.0-0.2 [facility] Basophils/100 WBC Auto (Bld) Ordered By: Brittney Hudson on 07-10-2023 Basophils/100 WBC (Bld) 0.1 % . [facility] Blood Cultureon 07-10-2023 Bacteria identified Cx Nom (Bld) NO GROWTH 5 DAYS PERFORMED BY: [facility] [address] [place] [address] PATHOLOGIST SKELP PROCESSOR JOSEPH GARCIA M.D. [facility] [place] Comment on above: Performed By: #### C UBLD ####[place] [id number] [facility] Bacteria identified Cx Nom (Bld) NO GROWTH 5 DAYS PERFORMED BY: [facility] [address] [facility] [place] [address] PATHOLOGIST SKELP PROCESSOR JOSEPH GARCIA M.D. [facility] Comment on above: Performed By: #### C UBLD, MG, LACTIC, SCAN CBC, CRP, BMP ####[facility] [id number] [place] [address] [facility] C reactive protein [Mass/vol ume] in Serum or PlasmaOrdered By: Brittney Hudson on 07-10-2023 CRP [Mass/Vol] 28.5 mg/dL 0.0-0.5 [facility] C-Reactive Proteinon 024 C-Reactive Protein 28.5 mg/dL High 0.0-0.5 [facility] Comment on above: Result Comment: PERF ORMED BY:[facility]AMANLU[address] [place], [place] [phone] MEDICAL DIRECTORJOSEPH GARCIA M.D. Performed By: #### C UBLD, MG, LACTIC, SCAN CBC, CRP, BMP ####[facility] [address] [place] [address] [facility] Calcium [Mass/volume] in Ser um or PlasmaOrdered By: Brittney Hudson on 07-10-2023 Calcium [Mass/Vol] 9.1 mg/dL 8.6-10.3 [facility] Carbon dioxide, total [Moles /volume] in Serum or PlasmaOrdered By: Brittney Hudson on 07-10-2023 CO2 [Moles/Vol] 25.5 mmol/L 21.0-31.0 [facility] Chloride [Moles/volume] in S rene or PlasmaOrdered By: Brittney Hudson on 07-10-2023 Chloride [Moles/Vol] 98 mmol/L 98-107 [facility] Creatinine [Mass/volume] in Serum or PlasmaOrdered By: Brittney Hudson on 07-10-2023 Creatinine [Mass/Vol] 1.23 mg/dL 0.70-1.30 [facility] ECG 12 lead ECGon 07-10-2023 ECG 12 lead ECG Normal [facility] Eosinophils Auto (Bld) [#/Vo l]Ordered By: Brittney Hudson on 07-10-2023 Eosinophils (Bld) [#/Vol] 0.1 10*3/uL 0.0-0.45 [facility] Eosinophils/100 WBC Auto (Bl d)Ordered By: Brittney Hudson on 07-10-2023 Eosinophils/100 WBC (Bld) 0.3 % . [facility] Erythrocyte Sedimentation Ra salma 07-10-2023 ESR (Bld) [Velocity] 62 mm/h High [facility] Comment on above: Order Comment: Comme nt add on Result Comment: PERF ORMED BY:[facility]AMANLUZ [place], [place] [phone] MEDICAL DIRECTORJOSEPH GARCIA M.D. Performed By: #### E SR ####[facility] [place] [address] [facility] Erythrocyte distribution wid th Auto (RBC) [Ratio]Ordered By: Brittney Hudson on 07-10-2023 Erythrocyte distribution width (RBC) [Ratio] 13.7 % 12.0-14.8 [facility] Erythrocyte sedimentation ra te by Photometric methodOrdered By: Jesica Juan on 07-10-2023 ESR Photometric method (Bld) [Velocity] 62 mm/hr [facility] Glucose Glucometer (BldC) [M ass/Vol]Ordered By: Arnaldo Thomas on 07-10-2023 Glucose [Mass/Vol] 188 mg/dL [facility] Comment on above: Random Glucose Refer ence Range is dependent on time and content of last meal. Glucose of more than 200 mg/dL in a nonstressed, ambulatory subject supports the diagnosis of Diabetes Mellitus. Glucose Poct Glucometerson 0 07-10-2023 Commemt1 Glu2: Cleaned Meter Normal [facility] Comment on above: Result Comment: PERF ORMED BY:[facility] ZAMANLU[address] [place], [place] [phone] MEDICAL SILVIA GARCIA M.D. Performed By: #### G LULS ####Point of Care testing, Glucose [Mass/Vol] 188 mg/dL Normal [facility] Comment on above: Result Comment: [place] om Glucose Reference Range is dependent on time and content of last meal. Glucose of more than 200 mg/dL in a nonstressed, ambulatory subject supports the diagnosis of Diabetes Mellitus. Performed By: #### G LULS ####Point of Care testing, Glucose [Mass/volume] in Ser um or PlasmaOrdered By: Brittney Hudson on 07-10-2023 Glucose [Mass/Vol] 57 mg/dL 70-100 [facility] Comment on above: ADA recommended refe rence rangeRandom Glucose Reference Range is dependent on time and content of last meal. Glucose of more than 200 mg/dL in a nonstressed, ambulatory subject supports the diagnosis of Diabetes Mellitus. Hematocrit Auto (Bld) [Volum e fraction]Ordered By: Brittney Hudson on 07-10-2023 Hematocrit (Bld) [Volume fraction] 35.3 % 38.8-50.0 [facility] Hemoglobin [Mass/volume] in BloodOrdered By: Brittney Kothariortamiko on 07-10-2023 Hemoglobin (Bld) [Mass/Vol] 11.9 g/dL 13.0-17.0 [facility] Lactate [Moles/volume] in Se rum or PlasmaOrdered By: Brittney Hudson on 07-10-2023 Lactate [Moles/Vol] 1.2 mmol/L 0.5-2.2 [facility] Lactic Acidon 07-10-2023 Lactate [Moles/Vol] 3.3 mmol/L Off scale high 0.5-2.2 [facility] Comment on above: Result Comment: Crit ical Result : Called to and read back by: GILA RIBEIRO at: 07/10/2023 19:52:18 by:DCPERFORMED BY:[facility] [place], [place] [phone] MEDICAL DIRECTORJOSEPH GARCIA M.D. Performed By: #### C UBLD, MG, LACTIC, SCAN CBC, CRP, BMP ####[facility] [id number] [place] [address] [facility] Leukocytes [#/volume] correc jewel for nucleated erythrocytes in Blood by Automated counOrdered By: Brittney Hudson on 07-10-2023 WBC corrected for nucl RBC Auto (Bld) [#/Vol] 32.8 10*3/uL 4.1-10.5 [facility] Lymphocytes Auto (Bld) [#/Vo l]Ordered By: Brittney Hudson on 07-10-2023 Lymphocytes (Bld) [#/Vol] 2.1 10*3/uL 1.00-4.8 [facility] Lymphocytes/100 WBC Auto (Bl d)Ordered By: Brittney Hudson on 07-10-2023 Lymphocytes/100 WBC (Bld) 6.5 % . [facility] MCH Auto (RBC) [Entitic mass ]Ordered By: Brittney Hudson on 07-10-2023 MCH (RBC) [Entitic mass] 29.8 pg 27.5-35.2 [facility] MCHC Auto (RBC) [Mass/Vol]Or dered By: Brittney Hudson on 07-10-2023 MCHC (RBC) [Mass/Vol] 33.6 g/dL 32.5-35.6 [facility] MCV Auto (RBC) [Entitic vol] Ordered By: Brittney Hudson on 07-10-2023 MCV (RBC) [Entitic vol] 88.6 fL 83.5-101 [facility] Magnesiumon 07-10-2023 Magnesium [Mass/Vol] 1.9 mg/dL Normal 1.9-2.7 [facility] Comment on above: Performed By: #### C UBLD, MG, LACTIC, SCAN CBC, CRP, BMP ####[facility] [id number] Magnesium [Mass/volume] in S rene or PlasmaOrdered By: Brittney Hudson on 07-10-2023 Magnesium [Mass/Vol] 1.9 mg/dL 1.9-2.7 [facility] Monocyte distribution width [Entitic volume] in Blood by AutomatedOrdered By: Brittney Hudson on 07-10-2023 Monocyte distribution width Auto (Bld) [Entitic vol] 22.38 % 0.00-20.00 [facility] Comment on above: For adults in ED, MD W > 20.0 may be associated with a higher risk of sepsis during the first 12 hrs of hospital admission Monocytes Auto (Bld) [#/Vol] Ordered By: Brittney Hudson on 07-10-2023 Monocytes (Bld) [#/Vol] 2.7 10*3/uL 0.0-0.8 [facility] Monocytes/100 WBC Auto (Bld) Ordered By: Brittney Hudson on 07-10-2023 Monocytes/100 WBC (Bld) 8.4 % . [facility] Neutrophils Auto (Bld) [#/Vo l]Ordered By: Brittney Hudson on 07-10-2023 Neutrophils (Bld) [#/Vol] 27.7 10*3/uL 1.8-7.7 [facility] Neutrophils/100 WBC Auto (Bl d)Ordered By: Brittney Hudson on 07-10-2023 Neutrophils/100 WBC (Bld) 84.7 % . [facility] No Panel InformationOrdered By: Arnaldo Thomas on 07-10-2023 Bedside Glucose Comment Glu2: cleaned meter [facility] No Panel InformationOrdered By: Brittney Hudson on 07-10-2023 Estimated GFR (CKD-EPI) > 60.0 mL/Min [facility] Creatinine Clearance (Chem 59.59 [facility] Nucleated erythrocytes [Pres ence] in Blood by Automated countOrdered By: Brittney Hudson on 07-10-2023 Nucleated RBC Auto Ql (Bld) 0.0 /100{WBC} 0-0.5 [facility] Platelet adequacy [Presence] in Blood by Light microscopyOrdered By: Brittney Hudson on 07-10-2023 Platelets LM Ql (Bld) Increased Normal [facility] Platelet mean volume Auto (B ld) [Entitic vol]Ordered By: Brittney Hudson on 07-10-2023 Platelet mean volume (Bld) [Entitic vol] 7.7 fL 6.6-10.1 [facility] Platelet morphology finding [Identifier] in BloodOrdered By: Brittney Hudson on 07-10-2023 Platelet morphology finding Nom (Bld) N/A [facility] Platelets Auto (Bld) [#/Vol] Ordered By: Brittney Hudson on 07-10-2023 Platelets (Bld) [#/Vol] 502 10*3/uL 150-450 [facility] Platelets Large [Presence] i n Blood by Light microscopyOrdered By: Brittney Hudson on 07-10-2023 Platelets Large LM Ql (Bld) Slight [facility] Potassium [Moles/volume] in Serum or PlasmaOrdered By: Brittney Hudson on 07-10-2023 Potassium [Moles/Vol] 3.3 mmol/L 3.5-5.1 [facility] RBC Auto (Bld) [#/Vol]Ordere d By: Brittney Hudson on 07-10-2023 RBC (Bld) [#/Vol] 3.98 10*6/uL 3.90-5.60 [facility] RBC morphologyOrdered By: Elizabeth Hudson on 07-10-2023 RBC morphology finding Nom (Bld) Normal Normal [facility] Scan and CBCon 07-10-2023 Basophils (Bld) [#/Vol] 0.0 10*3/uL Normal 0.0-0.2 [facility] Comment on above: Performed By: #### C UBLD, MG, LACTIC, SCAN CBC, CRP, BMP ####[facility] [id number] Basophils/100 WBC (Bld) 0.1 % Normal . [facility] Comment on above: Performed By: #### C UBLD, MG, LACTIC, SCAN CBC, CRP, BMP ####[facility] [id number] Eosinophils (Bld) [#/Vol] 0.1 10*3/uL Normal 0.0-0.45 [facility] Comment on above: Performed By: #### C UBLD, MG, LACTIC, SCAN CBC, CRP, BMP ####[facility] [id number] Eosinophils/100 WBC (Bld) 0.3 % Normal . [facility] Comment on above: Performed By: #### C UBLD, MG, LACTIC, SCAN CBC, CRP, BMP ####[facility] [id number] [place] [address] Erythrocyte distribution width (RBC) [Ratio] 13.7 % Normal 12.0-14.8 [facility] Comment on above: Performed By: #### C UBLD, MG, LACTIC, SCAN CBC, CRP, BMP ####[address] Hematocrit (Bld) [Volume fraction] 35.3 % Low 38.8-50.0 [facility] Comment on above: Performed By: #### C UBLD, MG, LACTIC, SCAN CBC, CRP, BMP ####[address] Hemoglobin (Bld) [Mass/Vol] 11.9 g/dL Low 13.0-17.0 [facility] Comment on above: Performed By: #### C UBLD, MG, LACTIC, SCAN CBC, CRP, BMP ####[address] Large Platelets Slight Normal [facility] Comment on above: Result Comment: PERF ORMED BY:[address] [place], [place] [phone] MEDICAL DIRECTORJOSEPH GARCIA M.D. Performed By: #### C UBLD, MG, LACTIC, SCAN CBC, CRP, BMP ####[address] Lymphocytes (Bld) [#/Vol] 2.1 10*3/uL Normal 1.00-4.8 [facility] Comment on above: Performed By: #### C UBLD, MG, LACTIC, SCAN CBC, CRP, BMP ####[address] Lymphocytes/100 WBC (Bld) 6.5 % Normal . [facility] Comment on above: Performed By: #### C UBLD, MG, LACTIC, SCAN CBC, CRP, BMP ####[address] MCH (RBC) [Entitic mass] 29.8 pg Normal 27.5-35.2 [facility] Comment on above: Performed By: #### C UBLD, MG, LACTIC, SCAN CBC, CRP, BMP ####[address] MCV (RBC) [Entitic vol] 88.6 fL Normal 83.5-101 [facility] Comment on above: Performed By: #### C UBLD, MG, LACTIC, SCAN CBC, CRP, BMP ####[address] Mean Corpuscular HGB Conc 33.6 g/dL Normal 32.5-35.6 [facility] Comment on above: Performed By: #### C UBLD, MG, LACTIC, SCAN CBC, CRP, BMP ####[address] Monocytes (Bld) [#/Vol] 2.7 10*3/uL High 0.0-0.8 [facility] Comment on above: Performed By: #### C UBLD, MG, LACTIC, SCAN CBC, CRP, BMP ####[address] Monocytes/100 WBC (Bld) 22.38 % High 0.00-20.00 [facility] Comment on above: Result Comment: For adults in ED, MDW > 20.0 may be associated with a higher risk of sepsis during the first 12 hrs of hospital admission Performed By: #### C UBLD, MG, LACTIC, SCAN CBC, CRP, BMP ####[address] Monocytes/100 WBC (Bld) 8.4 % Normal . [facility] Comment on above: Performed By: #### C UBLD, MG, LACTIC, SCAN CBC, CRP, BMP ####[address] Neutrophils (Bld) [#/Vol] 27.7 10*3/uL High 1.8-7.7 [facility] Comment on above: Performed By: #### C UBLD, MG, LACTIC, SCAN CBC, CRP, BMP ####[place] [address] [place] Neutrophils/100 WBC (Bld) 84.7 % Normal . [facility] Comment on above: Performed By: #### C UBLD, MG, LACTIC, SCAN CBC, CRP, BMP ####[address] NRBC% 0.0 /100{WBC} Normal 0-0.5 [facility] Comment on above: Performed By: #### C UBLD, MG, LACTIC, SCAN CBC, CRP, BMP ####[address] Platelet Estimate Increased Normal Normal [facility] Comment on above: Performed By: #### C UBLD, MG, LACTIC, SCAN CBC, CRP, BMP ####[address] Platelet mean volume (Bld) [Entitic vol] 7.7 fL Normal 6.6-10.1 [facility] Comment on above: Performed By: #### C UBLD, MG, LACTIC, SCAN CBC, CRP, BMP ####[address] Platelets (Bld) [#/Vol] 502 10*3/uL High 150-450 [facility] Comment on above: Performed By: #### C UBLD, MG, LACTIC, SCAN CBC, CRP, BMP ####[address] RBC (Bld) [#/Vol] 3.98 10*6/uL Normal 3.90-5.60 [facility] Comment on above: Performed By: #### C UBLD, MG, LACTIC, SCAN CBC, CRP, BMP ####[address] RBC morphology finding Nom (Bld) Normal Normal Normal [facility] Comment on above: Performed By: #### C UBLD, MG, LACTIC, SCAN CBC, CRP, BMP ####[address] WBC (Bld) [#/Vol] 32.8 10*3/uL High 4.1-10.5 [facility] Comment on above: Performed By: #### C UBLD, MG, LACTIC, SCAN CBC, CRP, BMP ####[facility] [id number] [place] [address] [facility] Serum or plasma anion gap de terminationOrdered By: Brittney Hudson on 07-10-2023 Anion gap [Moles/Vol] 15.8 mmol/L 6.0-15.0 [facility] Sodium [Moles/volume] in Ser um or PlasmaOrdered By: Brittney Hudson on 07-10-2023 Sodium [Moles/Vol] 136 mmol/L 136-145 [facility] Superficial Wound Cultureon 07-10-2023 Superficial Wound Culture Normal [facility] Comment on above: Performed By: #### C USUP ####[facility] [id number] [place] [address] [facility] Urea nitrogen [Mass/volume] in Serum or PlasmaOrdered By: Brittney Hudson on 07-10-2023 Urea nitrogen [Mass/Vol] 23 mg/dL 7-25 [facility] WBC Auto (Bld) [#/Vol]Ordere d By: Brittney Hudson on 07-10-2023 WBC (Bld) [#/Vol] 32.8 10*3/uL 4.1-10.5 [facility] XR foot LT min 3V*on 07-10- 024 XR foot LT min 3V* Normal [facility] A1C HEMOGLOBINon 06-26-2023 HbA1c (Bld) [Mass fraction] 7.7 % [employer] Other Glucose - FINGER STICKon Glucose [Mass/Vol] 178 mg/dL [employer] Other HbA1c (Bld) [Mass fraction]o n 06-26-2023 A1C HEMOGLOBIN [employer] Other C reactive protein [Mass/vol ume] in Serum or PlasmaOrdered By: Michael Ramírez on 11-06-2023 CRP [Mass/Vol] 8.9 mg/dL 0.0-0.5 [facility] C-Reactive Proteinon 023 C-Reactive Protein 8.9 mg/dL High 0.0-0.5 [facility] Comment on above: Result Comment: PERF ORMED BY:[address] [place], [place] [phone] MEDICAL DIRECTORJOSEPH GARCIA M.D. Performed By: #### C REAT, CRP ####[facility] [id number] [place] [address] [place] Creatinineon 03-31-2023 Creatinine [Mass/Vol] 0.85 mg/dL Normal 0.70-1.30 [facility] Comment on above: Performed By: #### C REAT, CRP ####[address] [address] [facility] GFR/1.73 sq M.predicted MDRD (S/P/Bld) [Vol rate/Area] mL/min/{1.73_m2} [facility] Comment on above: Performed By: #### C REAT, CRP ####[address] [address] [facility] Creatinine [Mass/volume] in Serum or PlasmaOrdered By: Michael Ramírez on 03-31-2023 Creatinine [Mass/Vol] 0.85 mg/dL 0.70-1.30 [facility] No Panel InformationOrdered By: Michael Ramírez on 03-31-2023 Estimated GFR (CKD-EPI) > 60.0 mL/Min [facility] Creatinine Clearance (Chem N/A [facility] MR foot LT wo conon 03-25-20 23 MR foot LT wo con Normal [facility] C reactive protein [Mass/vol ume] in Serum or PlasmaOrdered By: Michael Ramírez on 03-24-2023 CRP [Mass/Vol] 1.6 mg/dL 0.0-0.5 [facility] C-Reactive Proteinon 023 C-Reactive Protein 1.6 mg/dL High 0.0-0.5 [facility] Comment on above: Result Comment: PERF ORMED BY:[address] [place], [place] [phone] MEDICAL DIRECTORJOSEPH GARCIA M.D. Performed By: #### C REMICHELLE, CRP ####[place] [address] [place] [address] [facility] Creatinineon 03-24-2023 GFR/1.73 sq M.predicted MDRD (S/P/Bld) [Vol rate/Area] mL/min/{1.73_m2} Normal [facility] Comment on above: Performed By: #### C HONG, CRP ####[place] [address] [place] [id number] [facility] Creatinine [Mass/volume] in Serum or PlasmaOrdered By: Michael Ramírez on 03-24-2023 Creatinine [Mass/Vol] 0.85 mg/dL Normal 0.70-1.30 [facility] Comment on above: Performed By: #### C HONG, CRP ####[place] [id number] [facility] No Panel InformationOrdered By: Michael Ramírez on 03-24-2023 Estimated GFR (CKD-EPI) > 60.0 mL/Min [facility] Creatinine Clearance (Chem N/A [facility] A1C HEMOGLOBINon 03-20-2023 HbA1c (Bld) [Mass fraction] 6.4 % [employer] Other Glucose - FINGER STICKon Glucose [Mass/Vol] 179 mg/dL [employer] Other HbA1c (Bld) [Mass fraction]o n 03-20-2023 A1C HEMOGLOBIN [employer] Other C reactive protein [Mass/vol ume] in Serum or PlasmaOrdered By: Michael Ramírez on 03-17-2023 CRP [Mass/Vol] 1.6 mg/dL 0.0-0.5 [facility] C-Reactive Proteinon 023 C-Reactive Protein 1.6 mg/dL High 0.0-0.5 [facility] Comment on above: Result Comment: PERF ORMED BY:[place] [address] [address] [place], [place] [phone] MEDICAL DIRECTORJOSEPH GARCIA M.D. Performed By: #### C REMICHELLE CRP ####[address] [address] [facility] Creatinineon 03-17-2023 GFR/1.73 sq M.predicted MDRD (S/P/Bld) [Vol rate/Area] mL/min/{1.73_m2} Normal [facility] Comment on above: Performed By: #### C REMICHELLE CRP ####[place] [id number] [facility] Creatinine [Mass/volume] in Serum or PlasmaOrdered By: Michael Ramírez on 03-17-2023 Creatinine [Mass/Vol] 1.20 mg/dL Normal 0.70-1.30 [facility] Comment on above: Performed By: #### C REMICHELLE, CRP ####[place] [id number] [facility] No Panel InformationOrdered By: Michael Ramírez on 03-17-2023 Estimated GFR (CKD-EPI) > 60.0 mL/Min [facility] Creatinine Clearance (Chem N/A [facility] C reactive protein [Mass/vol ume] in Serum or PlasmaOrdered By: Michael Ramírez on 03-10-2023 CRP [Mass/Vol] 0.8 mg/dL 0.0-0.5 [facility] C-Reactive Proteinon 023 C-Reactive Protein 0.8 mg/dL High 0.0-0.5 [facility] Comment on above: Result Comment: PERF ORMED BY:[place] [address] [address] [place], [place] [phone] MEDICAL SILVIA GARCIA M.D. Performed By: #### C REAT, CRP ####[address] [address] [facility] Creatinineon 03-10-2023 GFR/1.73 sq M.predicted MDRD (S/P/Bld) [Vol rate/Area] mL/min/{1.73_m2} Normal [facility] Comment on above: Performed By: #### C SALUD PITTS ####[facility] [address] [place] [address] [facility] Creatinine [Mass/volume] in Serum or PlasmaOrdered By: Michael Ramírez on 03-10-2023 Creatinine [Mass/Vol] 1.12 mg/dL Normal 0.70-1.30 [facility] Comment on above: Performed By: #### C SALUD PITTS ####[facility] [address] [place] [address] [facility] No Panel InformationOrdered By: Michael Ramírez on 03-10-2023 Estimated GFR (CKD-EPI) > 60.0 mL/Min [facility] Creatinine Clearance (Chem N/A [facility] Glucose Glucometer (BldC) [M ass/Vol]Ordered By: Orestes Mejia on 03-04-2023 Glucose [Mass/Vol] 185 mg/dL [facility] Comment on above: Random Glucose Refer ence Range is dependent on time and content of last meal. Glucose of more than 200 mg/dL in a nonstressed, ambulatory subject supports the diagnosis of Diabetes Mellitus. Glucose Poct Glucometerson 1 Glucose [Mass/Vol] 185 mg/dL Normal [facility] Comment on above: Result Comment: [place] Glucose Reference Range is dependent on time and content of last meal. Glucose of more than 200 mg/dL in a nonstressed, ambulatory subject supports the diagnosis of Diabetes Mellitus.PERFORMED BY:[facility] [place], [place] [phone] MEDICAL DIRECTORJOSEPH GARCIA M.D. Performed By: #### G VLAERY ####Point of Care testing, Glucose [Mass/Vol] 121 mg/dL Normal [facility] Comment on above: Result Comment: [place] om Glucose Reference Range is dependent on time and content of last meal. Glucose of more than 200 mg/dL in a nonstressed, ambulatory subject supports the diagnosis of Diabetes Mellitus.PERFORMED BY:[facility]EZ [place] [phone] MEDICAL DIRECTORJOSEPH GARCIA M.D. Performed By: #### G LUANURAG ####Point of Care testing, Glucose [Mass/Vol] 94 mg/dL Normal [facility] Comment on above: Result Comment: [facility] Glucose Reference Range is dependent on time and content of last meal. Glucose of more than 200 mg/dL in a nonstressed, ambulatory subject supports the diagnosis of Diabetes Mellitus.PERFORMED BY:[facility] [place] [id number] MEDICAL DIRECTORJOSEPH GARCIA M.D. Performed By: #### G LUANURAG ####Point of Care testing, Alanine aminotransferase [En zymatic activity/volume] in Serum or PlasmaOrdered By: Eulogio Ruvalcaba on 03-03-2023 ALT [Catalytic activity/Vol] 14 U/L 7-52 [facility] Albumin [Mass/volume] in Ser um or Plasma by Bromocresol green (BCG) dye binding methoOrdered By: Eulogio Ruvalcaba on 03-03-2023 Albumin BCG dye [Mass/Vol] 3.2 g/dL 3.5-5.7 [facility] Alkaline phosphatase [Enzyma tic activity/volume] in Serum or PlasmaOrdered By: Eulogio Ruvalcaba on 03-03-2023 ALP [Catalytic activity/Vol] 62 U/L 34-104 [facility] Aspartate aminotransferase [ Enzymatic activity/volume] in Serum or PlasmaOrdered By: Eulogio Peg on 03-03-2023 AST [Catalytic activity/Vol] 17 U/L 13-39 [facility] Basophils Auto (Bld) [#/Vol] Ordered By: Eulogio Ruvalcaba on 03-03-2023 Basophils (Bld) [#/Vol] 0.1 10*3/uL 0.0-0.2 [facility] Basophils/100 WBC Auto (Bld) Ordered By: Eulogio Ruvalcaba on 03-03-2023 Basophils/100 WBC (Bld) 0.6 % . [facility] Bilirubin.total [Mass/volume ] in Serum or PlasmaOrdered By: Eulogio Ruvalcaba on 03-03-2023 Bilirubin [Mass/Vol] 0.4 mg/dL 0.3-1.0 [facility] C reactive protein [Mass/vol ume] in Serum or PlasmaOrdered By: Michael Ramírez on 03-03-2023 CRP [Mass/Vol] 1.1 mg/dL 0.0-0.5 [facility] C-Reactive Proteinon 023 C-Reactive Protein 1.1 mg/dL High 0.0-0.5 [facility] Comment on above: Result Comment: PERF ORMED BY:[place] [address] [address] [place], [place] [phone] MEDICAL DIRECTORJOSEPH GARCIA M.D. Performed By: #### C RP, ESR ####[facility] [address] [place], [place] [address] [address] [facility] Calcium [Mass/volume] in Ser um or PlasmaOrdered By: Eulogio Ruvalcaba on 03-03-2023 Calcium [Mass/Vol] 8.7 mg/dL 8.6-10.3 [facility] Carbon dioxide, total [Moles /volume] in Serum or PlasmaOrdered By: Eulogio Ruvalcaba on 03-03-2023 CO2 [Moles/Vol] 31.2 mmol/L 21.0-31.0 [facility] Chloride [Moles/volume] in S rene or PlasmaOrdered By: Eulogio Ruvalcaba on 03-03-2023 Chloride [Moles/Vol] 103 mmol/L 98-107 [facility] Complete Blood Count Auto Di ffon 03-03-2023 Basophils (Bld) [#/Vol] 0.1 10*3/uL Normal 0.0-0.2 [facility] Comment on above: Result Comment: PERF ORMED BY:[place] [address] [address] [place], [place] [phone] MEDICAL DIRECTORJOSEPH GARCIA M.D. Performed By: #### C MP, CBC ####[facility] [address] Basophils/100 WBC (Bld) 0.6 % Normal . [facility] Comment on above: Performed By: #### C MP, CBC ####[address] Eosinophils (Bld) [#/Vol] 0.4 10*3/uL Normal 0.0-0.45 [facility] Comment on above: Performed By: #### C MP, CBC ####[address] Eosinophils/100 WBC (Bld) 3.4 % Normal . [facility] Comment on above: Performed By: #### C MP, CBC ####[address] Erythrocyte distribution width (RBC) [Ratio] 13.7 % Normal 12.0-14.8 [facility] Comment on above: Performed By: #### C MP, CBC ####[address] Hematocrit (Bld) [Volume fraction] 30.7 % Low 38.8-50.0 [facility] Comment on above: Performed By: #### C MP, CBC ####[address] Hemoglobin (Bld) [Mass/Vol] 10.4 g/dL Low 13.0-17.0 [facility] Comment on above: Performed By: #### C MP, CBC ####[address] Lymphocytes (Bld) [#/Vol] 3.1 10*3/uL Normal 1.00-4.8 [facility] Comment on above: Performed By: #### C MP, CBC ####[address] Lymphocytes/100 WBC (Bld) 24.7 % Normal . [facility] Comment on above: Performed By: #### C MP, CBC ####[place] [id number] [place] MCH (RBC) [Entitic mass] 30.0 pg Normal 27.5-35.2 [facility] Comment on above: Performed By: #### C MP, CBC ####[address] MCV (RBC) [Entitic vol] 88.7 fL Normal 83.5-101 [facility] Comment on above: Performed By: #### C MP, CBC ####[address] Mean Corpuscular HGB Conc 33.8 g/dL Normal 32.5-35.6 [facility] Comment on above: Performed By: #### C MP, CBC ####[address] Monocytes (Bld) [#/Vol] 1.2 10*3/uL High 0.0-0.8 [facility] Comment on above: Performed By: #### C MP, CBC ####[address] Monocytes/100 WBC (Bld) 9.4 % Normal . [facility] Comment on above: Performed By: #### C MP, CBC ####[address] Neutrophils (Bld) [#/Vol] 7.7 10*3/uL Normal 1.8-7.7 [facility] Comment on above: Performed By: #### C MP, CBC ####[address] Neutrophils/100 WBC (Bld) 61.9 % Normal . [facility] Comment on above: Performed By: #### C MP, CBC ####[address] NRBC% 0.1 /100{WBC} Normal 0-0.5 [facility] Comment on above: Performed By: #### C MP, CBC ####[address] Platelet mean volume (Bld) [Entitic vol] 8.5 fL Normal 6.6-10.1 [facility] Comment on above: Performed By: #### C MP, CBC ####[place] [id number] [facility] Platelets (Bld) [#/Vol] 324 10*3/uL Normal 150-450 [facility] Comment on above: Performed By: #### C MP, CBC ####[address] RBC (Bld) [#/Vol] 3.46 10*6/uL Low 3.90-5.60 [facility] Comment on above: Performed By: #### C MP, CBC ####[address] WBC (Bld) [#/Vol] 12.4 10*3/uL High 4.1-10.5 [facility] Comment on above: Performed By: #### C MP, CBC ####[place] [id number] [facility] Comprehensive Metabolic Pane neil 03-03-2023 Albumin [Mass/Vol] 3.2 g/dL Low 3.5-5.7 [facility] Comment on above: Performed By: #### C MP, CBC ####[place] [id number] [facility] Albumin/Globulin [Mass ratio] 1.3 {ratio} Normal [facility] Comment on above: Performed By: #### C MP, CBC ####[place] [id number] [facility] ALP [Catalytic activity/Vol] 62 U/L Normal 34-104 [facility] Comment on above: Performed By: #### C MP, CBC ####[place] [id number] [facility] ALT [Catalytic activity/Vol] 14 U/L Normal 7-52 [facility] Comment on above: Performed By: #### C MP, CBC ####[address] [place] [address] [facility] Anion gap [Moles/Vol] 9.4 mmol/L Normal 6.0-15.0 [facility] Comment on above: Performed By: #### C MP, CBC ####[facility] [place] [address] [facility] AST [Catalytic activity/Vol] 17 U/L Normal 13-39 [facility] Comment on above: Performed By: #### C MP, CBC ####[facility] [place] [address] [facility] Bilirubin [Mass/Vol] 0.4 mg/dL Normal 0.3-1.0 [facility] Comment on above: Performed By: #### C MP, CBC ####[place] [address] [place] [address] [facility] Calcium [Mass/Vol] 8.7 mg/dL Normal 8.6-10.3 [facility] Comment on above: Performed By: #### C MP, CBC ####[address] [address] [facility] Chloride [Moles/Vol] 103 mmol/L Normal 98-107 [facility] Comment on above: Performed By: #### C MP, CBC ####[place] [address] [place] [address] [facility] CO2 [Moles/Vol] 31.2 mmol/L High 21.0-31.0 [facility] Comment on above: Performed By: #### C MP, CBC ####[place] [address] [place] [address] [facility] Creatinine [Mass/Vol] 1.38 mg/dL High 0.70-1.30 [facility] Comment on above: Performed By: #### C MP, CBC ####[place] [address] [place] [address] [facility] Creatinine Clr Calc Pharmacy 54.47 Normal [facility] Comment on above: Result Comment: PERF ORMED BY:[address] [place], [place] [phone] MEDICAL DIRECTORJOSEPH GARCIA M.D. Performed By: #### C MP, CBC ####[place] [address] [place] [address] [facility] GFR/1.73 sq M.predicted MDRD (S/P/Bld) [Vol rate/Area] 54.671 mL/min/{1.73_m2} Normal [facility] Comment on above: Performed By: #### C MP, CBC ####[place] [address] [place] [address] [facility] Globulin (S) [Mass/Vol] 2.5 g/dL Normal [facility] Comment on above: Performed By: #### C MP, CBC ####[place] [address] [place] [id number] [facility] Glucose [Mass/Vol] 82 mg/dL Normal 70-100 [facility] Comment on above: Result Comment: [facility] Glucose Reference Range is dependent on time and content of last meal. Glucose of more than 200 mg/dL in a nonstressed, ambulatory subject supports the diagnosis of Diabetes Mellitus. ADA recommended reference range Performed By: #### C MP, CBC ####[address] [address] [facility] Potassium [Moles/Vol] 4.6 mmol/L Normal 3.5-5.1 [facility] Comment on above: Performed By: #### C MP, CBC ####[place] [id number] [facility] Protein [Mass/Vol] 5.7 g/dL Low 6.4-8.9 [facility] Comment on above: Performed By: #### C MP, CBC ####[address] [address] [facility] Sodium [Moles/Vol] 139 mmol/L Normal 136-145 [facility] Comment on above: Performed By: #### C MP, CBC ####[address] [address] [facility] Urea nitrogen [Mass/Vol] 23 mg/dL Normal 7-25 [facility] Comment on above: Performed By: #### C MP, CBC ####[facility] [address] [place] [address] [facility] Creatinine [Mass/volume] in Serum or PlasmaOrdered By: Eulogio Ruvalcaba on 03-03-2023 Creatinine [Mass/Vol] 1.38 mg/dL 0.70-1.30 [facility] Eosinophils Auto (Bld) [#/Vo l]Ordered By: Eulogio Ruvalcaba on 03-03-2023 Eosinophils (Bld) [#/Vol] 0.4 10*3/uL 0.0-0.45 [facility] Eosinophils/100 WBC Auto (Bl d)Ordered By: Eulogio Ruvalcaba on 03-03-2023 Eosinophils/100 WBC (Bld) 3.4 % . [facility] Erythrocyte Sedimentation Ra salma 03-03-2023 ESR (Bld) [Velocity] 48 mm/h High 0 [facility] Comment on above: Result Comment: PERF ORMED BY:[facility] [place], [place] [phone] MEDICAL DIRECTORJOSEPH GARCIA M.D. Performed By: #### C RP, ESR ####[facility] [address] [place] [address] [facility] Erythrocyte distribution wid th Auto (RBC) [Ratio]Ordered By: Eulogio Ruvalcaba on 03-03-2023 Erythrocyte distribution width (RBC) [Ratio] 13.7 % 12.0-14.8 [facility] Erythrocyte sedimentation ra te by Photometric methodOrdered By: Michael Ramírez on 03-03-2023 ESR Photometric method (Bld) [Velocity] 48 mm/hr [facility] Globulin Calc (S) [Mass/Vol] Ordered By: Eulogio Ruvalcaba on 03-03-2023 Globulin (S) [Mass/Vol] 2.5 g/dL [facility] Glucose Poct Glucometerson 1 Glucose [Mass/Vol] 189 mg/dL Normal [facility] Comment on above: Result Comment: [place] Glucose Reference Range is dependent on time and content of last meal. Glucose of more than 200 mg/dL in a nonstressed, ambulatory subject supports the diagnosis of Diabetes Mellitus.PERFORMED BY:[address] [place], [place] [phone] MEDICAL SILVIA GARCIA M.D. Performed By: #### G LULS ####Point of Care testing, Glucose [Mass/Vol] 150 mg/dL Normal [facility] Comment on above: Result Comment: [facility] Glucose Reference Range is dependent on time and content of last meal. Glucose of more than 200 mg/dL in a nonstressed, ambulatory subject supports the diagnosis of Diabetes Mellitus.PERFORMED BY:[address] [place]amiko[place]NEW [place], [place] [phone] MEDICAL SILVIA GARCIA M.D. Performed By: #### G LULS ####Point of Care testing, Glucose [Mass/Vol] 226 mg/dL Normal [facility] Comment on above: Result Comment: [facility] Glucose Reference Range is dependent on time and content of last meal. Glucose of more than 200 mg/dL in a nonstressed, ambulatory subject supports the diagnosis of Diabetes Mellitus.PERFORMED BY:[place] [address] [address] [place], [place] [phone] ELAINE GARCIA M.D. Performed By: #### G LULS ####Point of Care testing, Glucose [Mass/Vol] 96 mg/dL Normal [facility] Comment on above: Result Comment: [facility] Glucose Reference Range is dependent on time and content of last meal. Glucose of more than 200 mg/dL in a nonstressed, ambulatory subject supports the diagnosis of Diabetes Mellitus.PERFORMED BY:[address] [place], [place] [phone] ELAINE GARCIA M.D. Performed By: #### G LULS ####Point of Care testing, Glucose [Mass/Vol] 87 mg/dL Normal [facility] Comment on above: Result Comment: [facility] Glucose Reference Range is dependent on time and content of last meal. Glucose of more than 200 mg/dL in a nonstressed, ambulatory subject supports the diagnosis of Diabetes Mellitus.PERFORMED BY:[facility] [place], [place] [phone] MEDICAL DIRECTORJOSEPH GARCIA M.D. Performed By: #### G LULS ####Point of Care testing, Glucose [Mass/Vol] 72 mg/dL Normal [facility] Comment on above: Result Comment: [facility] Glucose Reference Range is dependent on time and content of last meal. Glucose of more than 200 mg/dL in a nonstressed, ambulatory subject supports the diagnosis of Diabetes Mellitus.PERFORMED BY:[facility] LOY[address] [place], [place] [phone] MEDICAL DIRECTORJOSEPH GARCIA M.D. Performed By: #### G LULS ####Point of Care testing, Glucose [Mass/volume] in Ser um or PlasmaOrdered By: Eulogio Ruvalcaba on 03-03-2023 Glucose [Mass/Vol] 82 mg/dL 70-100 [facility] Comment on above: ADA recommended refe rence rangeRandom Glucose Reference Range is dependent on time and content of last meal. Glucose of more than 200 mg/dL in a nonstressed, ambulatory subject supports the diagnosis of Diabetes Mellitus. Hematocrit Auto (Bld) [Volum e fraction]Ordered By: Eulogio Ruvalcaba on 03-03-2023 Hematocrit (Bld) [Volume fraction] 30.7 % 38.8-50.0 [facility] Hemoglobin [Mass/volume] in BloodOrdered By: Eulogio Ruvalcaba on 03-03-2023 Hemoglobin (Bld) [Mass/Vol] 10.4 g/dL 13.0-17.0 [facility] Leukocytes [#/volume] correc jewel for nucleated erythrocytes in Blood by Automated counOrdered By: Eulogio Ruvalcaba on 03-03-2023 WBC corrected for nucl RBC Auto (Bld) [#/Vol] 12.4 10*3/uL 4.1-10.5 [facility] Lymphocytes Auto (Bld) [#/Vo l]Ordered By: Eulogio Ruvalcaba on 03-03-2023 Lymphocytes (Bld) [#/Vol] 3.1 10*3/uL 1.00-4.8 [facility] Lymphocytes/100 WBC Auto (Bl d)Ordered By: Eulogio Ruvalcaba on 03-03-2023 Lymphocytes/100 WBC (Bld) 24.7 % . [facility] MCH Auto (RBC) [Entitic mass ]Ordered By: Eulogio Ruvalcaba on 03-03-2023 MCH (RBC) [Entitic mass] 30.0 pg 27.5-35.2 [facility] MCHC Auto (RBC) [Mass/Vol]Or dered By: Eulogio Ruvalcaba on 03-03-2023 MCHC (RBC) [Mass/Vol] 33.8 g/dL 32.5-35.6 [facility] MCV Auto (RBC) [Entitic vol] Ordered By: Eulogio Ruvalcaba on 03-03-2023 MCV (RBC) [Entitic vol] 88.7 fL 83.5-101 [facility] Monocytes Auto (Bld) [#/Vol] Ordered By: Eulogio Ruvalcaba on 03-03-2023 Monocytes (Bld) [#/Vol] 1.2 10*3/uL 0.0-0.8 [facility] Monocytes/100 WBC Auto (Bld) Ordered By: Eulogio Ruvalcaba on 03-03-2023 Monocytes/100 WBC (Bld) 9.4 % . [facility] Neutrophils Auto (Bld) [#/Vo l]Ordered By: Eulogio Ruvalcaba on 03-03-2023 Neutrophils (Bld) [#/Vol] 7.7 10*3/uL 1.8-7.7 [facility] Neutrophils/100 WBC Auto (Bl d)Ordered By: Eulogio Ruvalcaba on 03-03-2023 Neutrophils/100 WBC (Bld) 61.9 % . [facility] No Panel InformationOrdered By: Eulogio Ruvalcaba on 03-03-2023 Estimated GFR (CKD-EPI) 54.671 mL/Min [facility] Creatinine Clearance (Chem 54.47 [facility] Nucleated erythrocytes [Pres ence] in Blood by Automated countOrdered By: Eulogio Ruvalcaba on 03-03-2023 Nucleated RBC Auto Ql (Bld) 0.1 /100{WBC} 0-0.5 [facility] Platelet mean volume Auto (B ld) [Entitic vol]Ordered By: Eulogio Enriquezmood on 03-03-2023 Platelet mean volume (Bld) [Entitic vol] 8.5 fL 6.6-10.1 [facility] Platelets Auto (Bld) [#/Vol] Ordered By: Eulogio Ruvalcaba on 03-03-2023 Platelets (Bld) [#/Vol] 324 10*3/uL 150-450 [facility] Potassium [Moles/volume] in Serum or PlasmaOrdered By: Eulogio Enriquezmood on 03-03-2023 Potassium [Moles/Vol] 4.6 mmol/L 3.5-5.1 [facility] Protein [Mass/volume] in Ser um or PlasmaOrdered By: Eulogio Ruvalcaba on 03-03-2023 Protein [Mass/Vol] 5.7 g/dL 6.4-8.9 [facility] RBC Auto (Bld) [#/Vol]Ordere d By: Eulogio Ruvalcaba on 03-03-2023 RBC (Bld) [#/Vol] 3.46 10*6/uL 3.90-5.60 [facility] Serum or plasma albumin/glob ulin mass ratioOrdered By: Eulogio Ruvalcaba on 03-03-2023 Albumin/Globulin [Mass ratio] 1.3 {ratio} [facility] Serum or plasma anion gap de terminationOrdered By: Eulogio Enriquezmood on 03-03-2023 Anion gap [Moles/Vol] 9.4 mmol/L 6.0-15.0 [facility] Sodium [Moles/volume] in Ser um or PlasmaOrdered By: Eulogio Peg on 03-03-2023 Sodium [Moles/Vol] 139 mmol/L 136-145 [facility] Urea nitrogen [Mass/volume] in Serum or PlasmaOrdered By: Eulogio Ruvalcaba on 03-03-2023 Urea nitrogen [Mass/Vol] 23 mg/dL 7-25 [facility] WBC Auto (Bld) [#/Vol]Ordere d By: Eulogio Maherod on 03-03-2023 WBC (Bld) [#/Vol] 12.4 10*3/uL 4.1-10.5 [facility] Complete Blood Count Auto Di ffon 03-02-2023 Basophils (Bld) [#/Vol] 0.1 10*3/uL Normal 0.0-0.2 [facility] Comment on above: Result Comment: PERF ORMED BY:[address] [place], [place] [phone] MEDICAL DIRECTORJOSEPH GARCIA M.D. Performed By: #### C MP, CBC ####[place] [id number] [facility] Basophils/100 WBC (Bld) 0.7 % Normal . [facility] Comment on above: Performed By: #### C MP, CBC ####[place] [id number] [facility] Eosinophils (Bld) [#/Vol] 0.4 10*3/uL Normal 0.0-0.45 [facility] Comment on above: Performed By: #### C MP, CBC ####[place] [id number] [facility] Eosinophils/100 WBC (Bld) 3.0 % Normal . [facility] Comment on above: Performed By: #### C MP, CBC ####[place] [id number] [facility] Erythrocyte distribution width (RBC) [Ratio] 13.8 % Normal 12.0-14.8 [facility] Comment on above: Performed By: #### C MP, CBC ####[place] [id number] [facility] Hematocrit (Bld) [Volume fraction] 32.0 % Low 38.8-50.0 [facility] Comment on above: Performed By: #### C MP, CBC ####[address] [place] [address] [facility] Hemoglobin (Bld) [Mass/Vol] 10.8 g/dL Low 13.0-17.0 [facility] Comment on above: Performed By: #### C MP, CBC ####[place] [id number] [facility] Lymphocytes (Bld) [#/Vol] 2.7 10*3/uL Normal 1.00-4.8 [facility] Comment on above: Performed By: #### C MP, CBC ####[place] [id number] [facility] Lymphocytes/100 WBC (Bld) 22.8 % Normal . [facility] Comment on above: Performed By: #### C MP, CBC ####[place] [id number] [facility] MCH (RBC) [Entitic mass] 29.8 pg Normal 27.5-35.2 [facility] Comment on above: Performed By: #### C MP, CBC ####[place] [id number] [facility] MCV (RBC) [Entitic vol] 88.7 fL Normal 83.5-101 [facility] Comment on above: Performed By: #### C MP, CBC ####[place] [id number] [facility] Mean Corpuscular HGB Conc 33.6 g/dL Normal 32.5-35.6 [facility] Comment on above: Performed By: #### C MP, CBC ####[place] [id number] [facility] Monocytes (Bld) [#/Vol] 1.2 10*3/uL High 0.0-0.8 [facility] Comment on above: Performed By: #### C MP, CBC ####[place] [id number] [facility] Monocytes/100 WBC (Bld) 10.2 % Normal . [facility] Comment on above: Performed By: #### C MP, CBC ####[facility] [place] [address] [facility] Neutrophils (Bld) [#/Vol] 7.6 10*3/uL Normal 1.8-7.7 [facility] Comment on above: Performed By: #### C MP, CBC ####[address] [address] [facility] Neutrophils/100 WBC (Bld) 63.3 % Normal . [facility] Comment on above: Performed By: #### C MP, CBC ####[address] [address] [facility] NRBC% 0.0 /100{WBC} Normal 0-0.5 [facility] Comment on above: Performed By: #### C MP, CBC ####[place] [address] [place] [address] [facility] Platelet mean volume (Bld) [Entitic vol] 8.4 fL Normal 6.6-10.1 [facility] Comment on above: Performed By: #### C MP, CBC ####[address] [address] [facility] Platelets (Bld) [#/Vol] 309 10*3/uL Normal 150-450 [facility] Comment on above: Performed By: #### C MP, CBC ####[address] [address] [facility] RBC (Bld) [#/Vol] 3.61 10*6/uL Low 3.90-5.60 [facility] Comment on above: Performed By: #### C MP, CBC ####[address] [address] [facility] WBC (Bld) [#/Vol] 12.0 10*3/uL High 4.1-10.5 [facility] Comment on above: Performed By: #### C MP, CBC ####[address] [address] [facility] Comprehensive Metabolic Pane neil 03-02-2023 Albumin [Mass/Vol] 3.2 g/dL Low 3.5-5.7 [facility] Comment on above: Performed By: #### C MP, CBC ####[facility] [place] [address] [facility] Albumin/Globulin [Mass ratio] 1.2 {ratio} Normal [facility] Comment on above: Performed By: #### C MP, CBC ####[facility] [place] [address] [facility] ALP [Catalytic activity/Vol] 63 U/L Normal 34-104 [facility] Comment on above: Performed By: #### C MP, CBC ####[facility] [place] [address] [facility] ALT [Catalytic activity/Vol] 12 U/L Normal 7-52 [facility] Comment on above: Performed By: #### C MP, CBC ####[facility] [place] [address] [facility] Anion gap [Moles/Vol] 9.3 mmol/L Normal 6.0-15.0 [facility] Comment on above: Performed By: #### C MP, CBC ####[facility] [place] [address] [facility] AST [Catalytic activity/Vol] 14 U/L Normal 13-39 [facility] Comment on above: Performed By: #### C MP, CBC ####[facility] [place] [address] [facility] Bilirubin [Mass/Vol] 0.5 mg/dL Normal 0.3-1.0 [facility] Comment on above: Performed By: #### C MP, CBC ####[facility] [place] [address] [facility] Calcium [Mass/Vol] 8.8 mg/dL Normal 8.6-10.3 [facility] Comment on above: Performed By: #### C MP, CBC ####[facility] [place] [address] [facility] Chloride [Moles/Vol] 103 mmol/L Normal 98-107 [facility] Comment on above: Performed By: #### C MP, CBC ####[facility] [place] [address] [facility] CO2 [Moles/Vol] 30.6 mmol/L Normal 21.0-31.0 [facility] Comment on above: Performed By: #### C MP, CBC ####[place] [address] [place] [address] [facility] Creatinine [Mass/Vol] 1.34 mg/dL High 0.70-1.30 [facility] Comment on above: Performed By: #### C MP, CBC ####[place] [address] [place] [address] [facility] Creatinine Clr Calc Pharmacy 56.10 [facility] [place] Comment on above: Result Comment: PERF ORMED BY:[address] [place], [place] [phone] MEDICAL DIRECTORJOSEPH GARCIA M.D. Performed By: #### C MP, CBC ####[place] [id number] [facility] GFR/1.73 sq M.predicted MDRD (S/P/Bld) [Vol rate/Area] 56.635 mL/min/{1.73_m2} [facility] Comment on above: Performed By: #### C MP, CBC ####[place] [address] [place] [address] [facility] Globulin (S) [Mass/Vol] 2.7 g/dL [facility] [place] Comment on above: Performed By: #### C MP, CBC ####[place] [id number] [facility] Glucose [Mass/Vol] 85 mg/dL Normal 70-100 [facility] Comment on above: Result Comment: [place] Glucose Reference Range is dependent on time and content of last meal. Glucose of more than 200 mg/dL in a nonstressed, ambulatory subject supports the diagnosis of Diabetes Mellitus. ADA recommended reference range Performed By: #### C MP, CBC ####[place] [id number] [facility] Potassium [Moles/Vol] 3.9 mmol/L Normal 3.5-5.1 [facility] Comment on above: Performed By: #### C MP, CBC ####[facility] [place] [address] [facility] Protein [Mass/Vol] 5.9 g/dL Low 6.4-8.9 [facility] Comment on above: Performed By: #### C MP, CBC ####[facility] [place] [address] [facility] Sodium [Moles/Vol] 139 mmol/L Normal 136-145 [facility] Comment on above: Performed By: #### C MP, CBC ####[facility] [place] [address] [facility] Urea nitrogen [Mass/Vol] 20 mg/dL Normal 7-25 [facility] Comment on above: Performed By: #### C MP, CBC ####[address] [address] [facility] Glucose Poct Glucometerson 1 Glucose [Mass/Vol] 235 mg/dL Normal [facility] Comment on above: Result Comment: [place] Glucose Reference Range is dependent on time and content of last meal. Glucose of more than 200 mg/dL in a nonstressed, ambulatory subject supports the diagnosis of Diabetes Mellitus.PERFORMED BY:[place] [address] [address] [place], [place] [phone] MEDICAL DIRECTORJOSEPH GARCIA M.D. Performed By: #### G LULS ####Point of Care testing, Commemt1 Glu2: Cleaned Meter Normal [facility] Comment on above: Result Comment: PERF ORMED BY:[place] [address] [address] [place], [place] [phone] MEDICAL DIRECTORJOSEPH GARCIA M.D. Performed By: #### G LULS ####Point of Care testing, Glucose [Mass/Vol] 142 mg/dL Normal [facility] Comment on above: Result Comment: [place] om Glucose Reference Range is dependent on time and content of last meal. Glucose of more than 200 mg/dL in a nonstressed, ambulatory subject supports the diagnosis of Diabetes Mellitus. Performed By: #### G LULS ####Point of Care testing, Glucose [Mass/Vol] 85 mg/dL Normal [facility] Comment on above: Result Comment: [place] om Glucose Reference Range is dependent on time and content of last meal. Glucose of more than 200 mg/dL in a nonstressed, ambulatory subject supports the diagnosis of Diabetes Mellitus.PERFORMED BY:[place] [address] [place] [place] [phone] MEDICAL DIRECTORJOSEPH GARCIA M.D. Performed By: #### G LULS ####Point of Care testing, Commemt1 Glu2: Cleaned Meter [facility] Comment on above: Result Comment: PERF ORMED BY:[place] [address] [place] [place], [place] [phone] MEDICAL DIRECTORJOSEPH GARCIA M.D. Performed By: #### G LULS ####Point of Care testing, Glucose [Mass/Vol] 85 mg/dL Normal [facility] Comment on above: Result Comment: [place] om Glucose Reference Range is dependent on time and content of last meal. Glucose of more than 200 mg/dL in a nonstressed, ambulatory subject supports the diagnosis of Diabetes Mellitus. Performed By: #### G LULS ####Point of Care testing, Glucose [Mass/Vol] 259 mg/dL Normal [facility] Comment on above: Result Comment: [place] om Glucose Reference Range is dependent on time and content of last meal. Glucose of more than 200 mg/dL in a nonstressed, ambulatory subject supports the diagnosis of Diabetes Mellitus.PERFORMED BY:[place] [address] [place] [place], [place] [phone] MEDICAL SILVIA GARCIA M.D. Performed By: #### G LULS ####Point of Care testing, Commemt1 Glu2: Cleaned Meter [facility] Comment on above: Result Comment: PERF ORMED BY:[place] [address] [place] [place], [place] [phone] MEDICAL DIRECTORJOSEPH GARCIA M.D. Performed By: #### G VALERY ####Point of Care testing, Glucose [Mass/Vol] 96 mg/dL Normal [facility] Comment on above: Result Comment: [facility] Glucose Reference Range is dependent on time and content of last meal. Glucose of more than 200 mg/dL in a nonstressed, ambulatory subject supports the diagnosis of Diabetes Mellitus. Performed By: #### G VALERY ####Point of Care testing, No Panel InformationOrdered By: Eulogio Ruvalcaba on 03-02-2023 Bedside Glucose Comment Glu2: cleaned meter [facility] Basic Metabolic Panelon Anion gap [Moles/Vol] 9.6 mmol/L Normal 6.0-15.0 [facility] Comment on above: Performed By: #### B MP, CBC ####[facility] [address] [place] [address] [facility] Calcium [Mass/Vol] 9.1 mg/dL Normal 8.6-10.3 [facility] Comment on above: Performed By: #### B MP, CBC ####[facility] [id number] [place] [address] [facility] Chloride [Moles/Vol] 102 mmol/L Normal 98-107 [facility] Comment on above: Performed By: #### B MP, CBC ####[facility] [address] [place] [address] [facility] CO2 [Moles/Vol] 30.1 mmol/L Normal 21.0-31.0 [facility] Comment on above: Performed By: #### B MP, CBC ####[facility] [address]ds[address] [place] [address] [place] Creatinine [Mass/Vol] 1.50 mg/dL High 0.70-1.30 [facility] Comment on above: Performed By: #### B MP, CBC ####[facility] [address] [place] [address] [place] Creatinine Clr Calc Pharmacy 50.11 Normal [facility] Comment on above: Result Comment: PERF ORMED BY:[address] [place] [phone] MEDICAL DIRECTORJOSEPH GARCIA M.D. Performed By: #### B MP, CBC ####[place] [address] [place] [address] [facility] GFR/1.73 sq M.predicted MDRD (S/P/Bld) [Vol rate/Area] 49.466 mL/min/{1.73_m2} Normal [facility] Comment on above: Performed By: #### B MP, CBC ####[place] [address] [place] [address] [facility] Glucose [Mass/Vol] 109 mg/dL High 70-100 [facility] Comment on above: Result Comment: [facility] Glucose Reference Range is dependent on time and content of last meal. Glucose of more than 200 mg/dL in a nonstressed, ambulatory subject supports the diagnosis of Diabetes Mellitus. ADA recommended reference range Performed By: #### B MP, CBC ####[place] [address] [place] [address] [facility] Potassium [Moles/Vol] 3.7 mmol/L Normal 3.5-5.1 [facility] Comment on above: Performed By: #### B MP, CBC ####[address] [address] [facility] Sodium [Moles/Vol] 138 mmol/L Normal 136-145 [facility] Comment on above: Performed By: #### B MP, CBC ####[address] [address] [facility] Urea nitrogen [Mass/Vol] 17 mg/dL Normal 7-25 [facility] Comment on above: Performed By: #### B MP, CBC ####[address] [address] [facility] Complete Blood Count Auto Di ffon 03-01-2023 Basophils (Bld) [#/Vol] 0.1 10*3/uL Normal 0.0-0.2 [facility] Comment on above: Result Comment: PERF ORMED BY:[address] [place], [place] [phone] MEDICAL DIRECTORJOSEPH GARCIA M.D. Performed By: #### B MP, CBC ####[address] Basophils/100 WBC (Bld) 0.5 % Normal . [facility] Comment on above: Performed By: #### B MP, CBC ####[address] Eosinophils (Bld) [#/Vol] 0.2 10*3/uL Normal 0.0-0.45 [facility] Comment on above: Performed By: #### B MP, CBC ####[address] Eosinophils/100 WBC (Bld) 1.9 % Normal . [facility] Comment on above: Performed By: #### B MP, CBC ####[address] Erythrocyte distribution width (RBC) [Ratio] 13.8 % Normal 12.0-14.8 [facility] Comment on above: Performed By: #### B MP, CBC ####[address] Hematocrit (Bld) [Volume fraction] 33.6 % Low 38.8-50.0 [facility] Comment on above: Performed By: #### B MP, CBC ####[address] Hemoglobin (Bld) [Mass/Vol] 11.6 g/dL Low 13.0-17.0 [facility] Comment on above: Performed By: #### B MP, CBC ####[address] Lymphocytes (Bld) [#/Vol] 2.6 10*3/uL Normal 1.00-4.8 [facility] Comment on above: Performed By: #### B MP, CBC ####[address] Lymphocytes/100 WBC (Bld) 20.3 % Normal . [facility] Comment on above: Performed By: #### B MP, CBC ####[place] [id number] [facility] MCH (RBC) [Entitic mass] 30.2 pg Normal 27.5-35.2 [facility] Comment on above: Performed By: #### B MP, CBC ####[address] MCV (RBC) [Entitic vol] 87.4 fL Normal 83.5-101 [facility] Comment on above: Performed By: #### B MP, CBC ####[address] Mean Corpuscular HGB Conc 34.5 g/dL Normal 32.5-35.6 [facility] Comment on above: Performed By: #### B MP, CBC ####[address] Monocytes (Bld) [#/Vol] 1.0 10*3/uL High 0.0-0.8 [facility] Comment on above: Performed By: #### B MP, CBC ####[address] Monocytes/100 WBC (Bld) 7.8 % Normal . [facility] Comment on above: Performed By: #### B MP, CBC ####[address] Neutrophils (Bld) [#/Vol] 9.0 10*3/uL High 1.8-7.7 [facility] Comment on above: Performed By: #### B MP, CBC ####[place] [id number] [facility] Neutrophils/100 WBC (Bld) 69.5 % Normal . [facility] Comment on above: Performed By: #### B MP, CBC ####[address] [address] [facility] NRBC% 0.1 /100{WBC} Normal 0-0.5 [facility] Comment on above: Performed By: #### B MP, CBC ####[place] [id number] [facility] Platelet mean volume (Bld) [Entitic vol] 8.6 fL Normal 6.6-10.1 [facility] Comment on above: Performed By: #### B MP, CBC ####[place] [id number] [facility] Platelets (Bld) [#/Vol] 340 10*3/uL Normal 150-450 [facility] Comment on above: Performed By: #### B MP, CBC ####[place] [id number] [facility] RBC (Bld) [#/Vol] 3.84 10*6/uL Low 3.90-5.60 [facility] Comment on above: Performed By: #### B MP, CBC ####[place] [id number] [facility] WBC (Bld) [#/Vol] 13.0 10*3/uL High 4.1-10.5 [facility] Comment on above: Performed By: #### B MP, CBC ####[place] [id number] [facility] Glucose Poct Glucometerson 1 Glucose [Mass/Vol] 232 mg/dL Normal [facility] Comment on above: Result Comment: [facility] Glucose Reference Range is dependent on time and content of last meal. Glucose of more than 200 mg/dL in a nonstressed, ambulatory subject supports the diagnosis of Diabetes Mellitus.PERFORMED BY:[address] [place]acy[place], [place] [phone] MEDICAL DIRECTORJOSEPH GARCIA M.D. Performed By: #### G LULS ####Point of Care testing, Commemt1 Glu2: Cleaned Meter Normal [facility] Comment on above: Result Comment: PERF ORMED BY:[place] [address] [address] [place], [place] [phone] MEDICAL DIRECTORJOSEPH GARCIA M.D. Performed By: #### G LULS ####Point of Care testing, Glucose [Mass/Vol] 134 mg/dL Normal [facility] Comment on above: Result Comment: [place] om Glucose Reference Range is dependent on time and content of last meal. Glucose of more than 200 mg/dL in a nonstressed, ambulatory subject supports the diagnosis of Diabetes Mellitus. Performed By: #### G LULS ####Point of Care testing, Glucose [Mass/Vol] 152 mg/dL Normal [facility] Comment on above: Result Comment: [place] om Glucose Reference Range is dependent on time and content of last meal. Glucose of more than 200 mg/dL in a nonstressed, ambulatory subject supports the diagnosis of Diabetes Mellitus.PERFORMED BY:[address] [place], [place] [phone] MEDICAL DIRECTORJOSEPH GARCIA M.D. Performed By: #### G LULS ####Point of Care testing, Glucose [Mass/Vol] 62 mg/dL Normal [facility] Comment on above: Result Comment: [place] om Glucose Reference Range is dependent on time and content of last meal. Glucose of more than 200 mg/dL in a nonstressed, ambulatory subject supports the diagnosis of Diabetes Mellitus.PERFORMED BY:[place] [address] [address] [place], [place] [phone] MEDICAL SILVIA GARCIA M.D. Performed By: #### G LULS ####Point of Care testing, Commemt1 Glu2: Cleaned Meter Normal [facility] Comment on above: Result Comment: PERF ORMED BY:[place] [address] [address] [place], [place] [phone] MEDICAL SILVIA GARCIA M.D. Performed By: #### G LULS ####Point of Care testing, Glucose [Mass/Vol] 263 mg/dL Normal [facility] Comment on above: Result Comment: [place] om Glucose Reference Range is dependent on time and content of last meal. Glucose of more than 200 mg/dL in a nonstressed, ambulatory subject supports the diagnosis of Diabetes Mellitus. Performed By: #### G LULS ####Point of Care testing, Commemt1 Glu2: Cleaned Meter Normal [facility] Comment on above: Result Comment: PERF ORMED BY:[address] [place] [place], [place] [phone] MEDICAL DIRECTORJOSEPH GARCIA M.D. Performed By: #### G LULS ####Point of Care testing, Glucose [Mass/Vol] 103 mg/dL Normal [facility] Comment on above: Result Comment: [facility] Glucose Reference Range is dependent on time and content of last meal. Glucose of more than 200 mg/dL in a nonstressed, ambulatory subject supports the diagnosis of Diabetes Mellitus. Performed By: #### G LULS ####Point of Care testing, Basic Metabolic Panelon 10-0 Anion gap [Moles/Vol] 8.6 mmol/L Normal 6.0-15.0 [facility] Comment on above: Performed By: #### B MP, CBC ####[address] [address] [facility] Calcium [Mass/Vol] 8.7 mg/dL Normal 8.6-10.3 [facility] Comment on above: Performed By: #### B MP, CBC ####[facility] [place] [address] [facility] Chloride [Moles/Vol] 103 mmol/L Normal 98-107 [facility] Comment on above: Performed By: #### B MP, CBC ####[address] [address] [facility] CO2 [Moles/Vol] 31.5 mmol/L High 21.0-31.0 [facility] Comment on above: Performed By: #### B MP, CBC ####[address] [address] [facility] Creatinine [Mass/Vol] 1.73 mg/dL High 0.70-1.30 [facility] Comment on above: Performed By: #### B MP, CBC ####[address] [place] [address] [place] Creatinine Clr Calc Pharmacy 43.12 [facility] [place] Comment on above: Result Comment: PERF ORMED BY:[address] [place] [phone] MEDICAL SILVIA GARCIA M.D. Performed By: #### B MP, CBC ####[address] [place] [address] [place] GFR/1.73 sq M.predicted MDRD (S/P/Bld) [Vol rate/Area] 41.682 mL/min/{1.73_m2} Normal [facility] Comment on above: Performed By: #### B MP, CBC ####[address] [place] [address] [facility] Glucose [Mass/Vol] 99 mg/dL Normal 70-100 [facility] Comment on above: Result Comment: [place] Glucose Reference Range is dependent on time and content of last meal. Glucose of more than 200 mg/dL in a nonstressed, ambulatory subject supports the diagnosis of Diabetes Mellitus. ADA recommended reference range Performed By: #### B MP, CBC ####[address] [address] [place] Potassium [Moles/Vol] 4.1 mmol/L Normal 3.5-5.1 [facility] Comment on above: Performed By: #### B MP, CBC ####[address] [place] [address] [place] Sodium [Moles/Vol] 139 mmol/L Normal 136-145 [facility] Comment on above: Performed By: #### B MP, CBC ####[address] [place] [address] [facility] Urea nitrogen [Mass/Vol] 17 mg/dL Normal 7-25 [facility] Comment on above: Performed By: #### B MP, CBC ####[address] [address] [facility] Complete Blood Count Auto Di ffon 02-28-2023 Basophils (Bld) [#/Vol] 0.1 10*3/uL Normal 0.0-0.2 [facility] Comment on above: Result Comment: PERF ORMED BY:[address] [place] [phone] MEDICAL DIRECTORJOSEPH GARCIA M.D. Performed By: #### B MP, CBC ####[address] [address] [facility] Basophils/100 WBC (Bld) 0.6 % Normal . [facility] Comment on above: Performed By: #### B MP, CBC ####[address] [address] [facility] Eosinophils (Bld) [#/Vol] 0.4 10*3/uL Normal 0.0-0.45 [facility] Comment on above: Performed By: #### B MP, CBC ####[place] [id number] [facility] Eosinophils/100 WBC (Bld) 2.8 % Normal . [facility] Comment on above: Performed By: #### B MP, CBC ####[address] [address] [facility] Erythrocyte distribution width (RBC) [Ratio] 13.9 % Normal 12.0-14.8 [facility] Comment on above: Performed By: #### B MP, CBC ####[address] [address] [facility] Hematocrit (Bld) [Volume fraction] 31.9 % Low 38.8-50.0 [facility] Comment on above: Performed By: #### B MP, CBC ####[address] [address] [facility] Hemoglobin (Bld) [Mass/Vol] 10.8 g/dL Low 13.0-17.0 [facility] Comment on above: Performed By: #### B MP, CBC ####[place] [address] [place] [id number] [facility] Lymphocytes (Bld) [#/Vol] 2.5 10*3/uL Normal 1.00-4.8 [facility] Comment on above: Performed By: #### B MP, CBC ####[place] [id number] [facility] Lymphocytes/100 WBC (Bld) 20.0 % Normal . [facility] Comment on above: Performed By: #### B MP, CBC ####[place] [id number] [facility] MCH (RBC) [Entitic mass] 30.0 pg Normal 27.5-35.2 [facility] Comment on above: Performed By: #### B MP, CBC ####[address] MCV (RBC) [Entitic vol] 88.7 fL Normal 83.5-101 [facility] Comment on above: Performed By: #### B MP, CBC ####[address] Mean Corpuscular HGB Conc 33.8 g/dL Normal 32.5-35.6 [facility] Comment on above: Performed By: #### B MP, CBC ####[address] Monocytes (Bld) [#/Vol] 1.4 10*3/uL High 0.0-0.8 [facility] Comment on above: Performed By: #### B MP, CBC ####[place] [id number] [facility] Monocytes/100 WBC (Bld) 10.7 % Normal . [facility] Comment on above: Performed By: #### B MP, CBC ####[place] [id number] [facility] Neutrophils (Bld) [#/Vol] 8.4 10*3/uL High 1.8-7.7 [facility] Comment on above: Performed By: #### B MP, CBC ####[address] [address] [facility] Neutrophils/100 WBC (Bld) 65.9 % Normal . [facility] Comment on above: Performed By: #### B MP, CBC ####[facility] [place] [address] [facility] NRBC% 0.0 /100{WBC} Normal 0-0.5 [facility] Comment on above: Performed By: #### B MP, CBC ####[address] [address] [facility] Platelet mean volume (Bld) [Entitic vol] 8.4 fL Normal 6.6-10.1 [facility] Comment on above: Performed By: #### B MP, CBC ####[address] [address] [facility] Platelets (Bld) [#/Vol] 284 10*3/uL Normal 150-450 [facility] Comment on above: Performed By: #### B MP, CBC ####[address] [address] [facility] RBC (Bld) [#/Vol] 3.59 10*6/uL Low 3.90-5.60 [facility] Comment on above: Performed By: #### B MP, CBC ####[address] [address] [facility] WBC (Bld) [#/Vol] 12.7 10*3/uL High 4.1-10.5 [facility] Comment on above: Performed By: #### B MP, CBC ####[address] [address] [facility] Glucose Poct Glucometerson Glucose [Mass/Vol] 158 mg/dL Normal [facility] Comment on above: Result Comment: [place] Glucose Reference Range is dependent on time and content of last meal. Glucose of more than 200 mg/dL in a nonstressed, ambulatory subject supports the diagnosis of Diabetes Mellitus.PERFORMED BY:[address] [id number] MEDICAL DIRECTORJOSEPH GARCIA M.D. Performed By: #### G LULS ####Point of Care testing, Glucose [Mass/Vol] 188 mg/dL Normal [facility] Comment on above: Result Comment: [facility] Glucose Reference Range is dependent on time and content of last meal. Glucose of more than 200 mg/dL in a nonstressed, ambulatory subject supports the diagnosis of Diabetes Mellitus.PERFORMED BY:[address] AM[address]ONEW [place], [place] [phone] MEDICAL DIRECTORJOSEPH GARCIA M.D. Performed By: #### G LULS ####Point of Care testing, Glucose [Mass/Vol] 184 mg/dL Normal [facility] Comment on above: Result Comment: [facility] Glucose Reference Range is dependent on time and content of last meal. Glucose of more than 200 mg/dL in a nonstressed, ambulatory subject supports the diagnosis of Diabetes Mellitus.PERFORMED BY:[place] [address] [place], [place] [phone] MEDICAL DIRECTORJOSEPH GARCIA M.D. Performed By: #### G LULS ####Point of Care testing, Glucose [Mass/Vol] 101 mg/dL Normal [facility] Comment on above: Result Comment: [facility] Glucose Reference Range is dependent on time and content of last meal. Glucose of more than 200 mg/dL in a nonstressed, ambulatory subject supports the diagnosis of Diabetes Mellitus.PERFORMED BY:[place] [address] [address] [place], [place] [phone] MEDICAL DIRECTORJOSEPH GARCIA M.D. Performed By: #### G LULS ####Point of Care testing, Basic Metabolic Panelon 10-0 Anion gap [Moles/Vol] 10.0 mmol/L Normal 6.0-15.0 [facility] Comment on above: Performed By: #### B MP, CBC, MG ####[facility] [place] [address] [facility] Calcium [Mass/Vol] 8.1 mg/dL Low 8.6-10.3 [facility] Comment on above: Performed By: #### B MP, CBC, MG ####[place] [address] Chloride [Moles/Vol] 103 mmol/L Normal 98-107 [facility] Comment on above: Performed By: #### B MP, CBC, MG ####[address] CO2 [Moles/Vol] 29.0 mmol/L Normal 21.0-31.0 [facility] Comment on above: Performed By: #### B MP, CBC, MG ####[address] Creatinine [Mass/Vol] 1.53 mg/dL High 0.70-1.30 [facility] Comment on above: Performed By: #### B MP, CBC, MG ####[address] Creatinine Clr Calc Pharmacy 48.43 [facility] [place] Comment on above: Performed By: #### B MP, CBC, MG ####[address] GFR/1.73 sq M.predicted MDRD (S/P/Bld) [Vol rate/Area] 48.304 mL/min/{1.73_m2} [facility] Comment on above: Performed By: #### B MP, CBC, MG ####[address] Glucose [Mass/Vol] 93 mg/dL Normal 70-100 [facility] Comment on above: Result Comment: [place] Glucose Reference Range is dependent on time and content of last meal. Glucose of more than 200 mg/dL in a nonstressed, ambulatory subject supports the diagnosis of Diabetes Mellitus. ADA recommended reference range Performed By: #### B MP, CBC, MG ####[address] Potassium [Moles/Vol] 4.0 mmol/L Normal 3.5-5.1 [facility] Comment on above: Performed By: #### B MP, CBC, MG ####[address] Sodium [Moles/Vol] 138 mmol/L Normal 136-145 [facility] Comment on above: Performed By: #### B MP, CBC, MG ####[address] Urea nitrogen [Mass/Vol] 16 mg/dL Normal 7-25 [facility] Comment on above: Performed By: #### B MP, CBC, MG ####[place] [address] Complete Blood Count Auto Di ffon 02-27-2023 Basophils (Bld) [#/Vol] 0.1 10*3/uL Normal 0.0-0.2 [facility] Comment on above: Result Comment: PERF ORMED BY:[address] LATamikoTracyVARNELL, [place] [phone] MEDICAL DIRECTORJOSEPH GARCIA M.D. Performed By: #### B MP, CBC, MG ####[address] Basophils/100 WBC (Bld) 0.6 % Normal . [facility] Comment on above: Performed By: #### B MP, CBC, MG ####[address] Eosinophils (Bld) [#/Vol] 0.2 10*3/uL Normal 0.0-0.45 [facility] Comment on above: Performed By: #### B MP, CBC, MG ####[address] Eosinophils/100 WBC (Bld) 1.3 % Normal . [facility] Comment on above: Performed By: #### B MP, CBC, MG ####[address] Erythrocyte distribution width (RBC) [Ratio] 14.0 % Normal 12.0-14.8 [facility] Comment on above: Performed By: #### B MP, CBC, MG ####[address] Hematocrit (Bld) [Volume fraction] 31.5 % Low 38.8-50.0 [facility] Comment on above: Performed By: #### B MP, CBC, MG ####[address] Hemoglobin (Bld) [Mass/Vol] 10.7 g/dL Low 13.0-17.0 [facility] Comment on above: Performed By: #### B MP, CBC, MG ####[address] Lymphocytes (Bld) [#/Vol] 2.8 10*3/uL Normal 1.00-4.8 [facility] Comment on above: Performed By: #### B MP, CBC, MG ####[address] Lymphocytes/100 WBC (Bld) 20.1 % Normal . [facility] Comment on above: Performed By: #### B MP, CBC, MG ####[address] MCH (RBC) [Entitic mass] 29.9 pg Normal 27.5-35.2 [facility] Comment on above: Performed By: #### B MP, CBC, MG ####[address] MCV (RBC) [Entitic vol] 87.8 fL Normal 83.5-101 [facility] Comment on above: Performed By: #### B MP, CBC, MG ####[address] Mean Corpuscular HGB Conc 34.1 g/dL Normal 32.5-35.6 [facility] Comment on above: Performed By: #### B MP, CBC, MG ####[place] [address] [place] [address] [facility] Monocytes (Bld) [#/Vol] 1.5 10*3/uL High 0.0-0.8 [facility] Comment on above: Performed By: #### B MP, CBC, MG ####[address] [address] [facility] Monocytes/100 WBC (Bld) 10.6 % Normal . [facility] Comment on above: Performed By: #### B MP, CBC, MG ####[address] Neutrophils (Bld) [#/Vol] 9.4 10*3/uL High 1.8-7.7 [facility] Comment on above: Performed By: #### B MP, CBC, MG ####[place] [id number] [facility] Neutrophils/100 WBC (Bld) 67.4 % Normal . [facility] Comment on above: Performed By: #### B MP, CBC, MG ####[place] [id number] [facility] NRBC% 0.1 /100{WBC} Normal 0-0.5 [facility] Comment on above: Performed By: #### B MP, CBC, MG ####[place] [id number] [facility] Platelet mean volume (Bld) [Entitic vol] 8.5 fL Normal 6.6-10.1 [facility] Comment on above: Performed By: #### B MP, CBC, MG ####[address] [address] [facility] Platelets (Bld) [#/Vol] 277 10*3/uL Normal 150-450 [facility] Comment on above: Performed By: #### B MP, CBC, MG ####[place] [id number] [facility] RBC (Bld) [#/Vol] 3.59 10*6/uL Low 3.90-5.60 [facility] Comment on above: Performed By: #### B MP, CBC, MG ####[address] [address] [facility] WBC (Bld) [#/Vol] 13.9 10*3/uL High 4.1-10.5 [facility] Comment on above: Performed By: #### B MP, CBC, MG ####[address] [address] [facility] Creatinineon 02-27-2023 Creatinine [Mass/Vol] 1.65 mg/dL High 0.70-1.30 [facility] Comment on above: Performed By: #### C REAT ####[address] Creatinine Clr Calc Pharmacy 45.05 [facility] [place] Comment on above: Result Comment: PERF ORMED BY:[place] [address] [address] [place], [place] [phone] MEDICAL DIRECTORJOSEPH GARCIA M.D. Performed By: #### C REAT ####[place] [id number] [facility] GFR/1.73 sq M.predicted MDRD (S/P/Bld) [Vol rate/Area] 44.119 mL/min/{1.73_m2} [facility] Comment on above: Performed By: #### C REAT ####[place] [id number] [facility] Glucose Poct Glucometerson 1 Commemt1 Glu2: Cleaned Meter Normal [facility] Comment on above: Result Comment: PERF ORMED BY:[place] [address] [address] [place], [place] [phone] MEDICAL DIRECTORJOSEPH GARCIA M.D. Performed By: #### G LULS ####Point of Care testing, Glucose [Mass/Vol] 216 mg/dL [facility] Comment on above: Result Comment: [place] Glucose Reference Range is dependent on time and content of last meal. Glucose of more than 200 mg/dL in a nonstressed, ambulatory subject supports the diagnosis of Diabetes Mellitus. Performed By: #### G LULS ####Point of Care testing, Glucose [Mass/Vol] 200 mg/dL Normal [facility] Comment on above: Result Comment: [facility] Glucose Reference Range is dependent on time and content of last meal. Glucose of more than 200 mg/dL in a nonstressed, ambulatory subject supports the diagnosis of Diabetes Mellitus.PERFORMED BY:[place] [address] [place] NUÑEZ[place], [place] [phone] MEDICAL DIRECTORJOSEPH GARCIA M.D. Performed By: #### G LULS ####Point of Care testing, Glucose [Mass/Vol] 224 mg/dL Normal [facility] Comment on above: Result Comment: [facility] Glucose Reference Range is dependent on time and content of last meal. Glucose of more than 200 mg/dL in a nonstressed, ambulatory subject supports the diagnosis of Diabetes Mellitus.PERFORMED BY:[place] [address] [place] NUÑ[place], [place] [phone] MEDICAL SILVIA GARCIA M.D. Performed By: #### G LULS ####Point of Care testing, Glucose [Mass/Vol] 114 mg/dL Normal [facility] Comment on above: Result Comment: [facility] Glucose Reference Range is dependent on time and content of last meal. Glucose of more than 200 mg/dL in a nonstressed, ambulatory subject supports the diagnosis of Diabetes Mellitus.PERFORMED BY:[place] [address] [place] [place], [place] [phone] MEDICAL SILVIA GARCIA M.D. Performed By: #### G LULS ####Point of Care testing, Magnesiumon 02-27-2023 Magnesium [Mass/Vol] 1.7 mg/dL Low 1.9-2.7 [facility] Comment on above: Result Comment: PERF ORMED BY:[place] [address] [place] [place], [place] [phone] MEDICAL SILVIA GARCIA M.D. Performed By: #### B MP, CBC, MG ####[facility] [address] [place] [address] [facility] Magnesium [Mass/volume] in S rene or PlasmaOrdered By: Geo Thomas on 02-27-2023 Magnesium [Mass/Vol] 1.7 mg/dL 1.9-2.7 [facility] Serum or plasma trough vanco mycin levelOrdered By: Brennan Cerrato on 02-27-2023 Vancomycin trough [Mass/Vol] 21.5 ug/mL 10.0-20.0 [facility] Comment on above: Last dose: - Vancomycin [Mass/volume] in Serum or PlasmaOrdered By: Brennan Cerrato on 02-27-2023 Vancomycin [Mass/Vol] 14.2 ug/mL 5.0-20.0 [facility] Comment on above: Last dose: - Vancomycin,Randomon 02-28-20 23 Vancomycin,Random 14.2 ug/mL Normal 5.0-20.0 [facility] Comment on above: Order Comment: Date of last dose?: 20230226 Time of last dose?: 1600 Result Comment: Last dose: -PERFORMED BY:[place] [address] [address] [place], [place] [phone] MEDICAL SILVIA GARCIA M.D. Performed By: #### V ANCR ####[place] [address] [place] [address] [facility] Vancomycin,Random 19.5 ug/mL Normal 5.0-20.0 [facility] Comment on above: Order Comment: Date of last dose?: 20230226 Time of last dose?: 1600 Result Comment: Last dose: -PERFORMED BY:[place] [address] [place] [place], [place] [phone] MEDICAL SILVIA GARCIA M.D. Performed By: #### V ANCR ####[place] [address] [place] [address] [facility] Vancomycin,Troughon 02-28-20 23 Vancomycin,Trough 21.5 ug/mL High 10.0-20.0 [facility] Comment on above: Order Comment: Time of next dose? 0300 Date of last dose?: 20230226 Time of last dose?: 1500 Result Comment: Last dose: -PERFORMED BY:[place] [address] [place] [place], [place] [phone] MEDICAL DIRECTORJOSEPH GARCIA M.D. Performed By: #### V ANCT ####[address] [address] [facility] A1C with Estimated Average G luon 02-26-2023 Glucose [Mass/Vol] 160 mg/dL Normal [facility] Comment on above: Result Comment: PERF ORMED BY:[place] [address] [place] [place], [place] [phone] MEDICAL DIRECTORJOSEPH GARCIA M.D. Performed By: #### A 1C WTH eA, CBC, PAB, LIPID, PTT, CMP, PT ####[address] [address] [facility] HbA1c (Bld) [Mass fraction] 7.2 % High 4.3-5.6 [facility] Comment on above: Result Comment: Incr eased risk for diabetes: 5.7 - 6.4 diabetes: >6.4 glycemic control for adults with diabetes: <7.0 Performed By: #### A 1C WTH eA, CBC, PAB, LIPID, PTT, CMP, PT ####[address] [address] [facility] Activated partial thrombopla stin time (aPTT) in platelet poor plasma by coagulation aOrdered By: Geo Thomas on 02-26-2023 aPTT Coag (PPP) [Time] 31.6 s 25.1-36.5 [facility] Comment on above: A hematocrit value g reater than 55% may lead to inaccurate results in coagulation testing. Patients having hematocrit values >55% require a special collection tube for coagulation studies. Please contact the laboratory at [phone] for redraw instructions. Aerobic Cultureon 02-26-2023 Aerobic Culture Normal [facility] Comment on above: Performed By: #### G S, AERC ####[facility] [address] [place] [address] [facility] Anaerobic cultureOrdered By: Rohan Han on 02-26-2023 Bacteria identified Anaer cx Nom (Unsp spec) No Anaerobes Isolated 3 Days [facility] Bacteria identified Anaer cx Nom (Unsp spec) No Anaerobes Isolated 3 Days [facility] Bacteria identified Aer cx N om (Unsp spec)Ordered By: Rohan Han on 02-26-2023 Aerobic Culture Pseudomonas aerugino sa (MDRO) [facility] Aerobic Culture Pseudomonas aerugino sa (MDRO) [facility] Cholesterol [Mass/volume] in Serum or PlasmaOrdered By: Geo Thomas on 02-26-2023 Cholesterol [Mass/Vol] 92 mg/dL 140-200 [facility] Comment on above: Chol less than 200 m g/dl low riskChol 201-239 mg/dl borderline riskChol 240 mg/dl and greater high risk Cholesterol in LDL Calc [Mas s/Vol]Ordered By: Geo Thomas on 02-26-2023 Cholesterol in LDL [Mass/Vol] 39 mg/dL 0-100 [facility] Comment on above: LDL ATP III CLASSIFI CATIONLDL less than 100 mg/dL OptimalLDL 100-129 mg/dL Near or above optimalLDL 130-159 mg/dL Borderline highLDL 160-189 mg/dL HighLDL greater than 189 mg/dL Very high Cholesterol in VLDL Calc [Ma ss/Vol]Ordered By: Geo Thomas on 02-26-2023 Cholesterol in VLDL [Mass/Vol] 29 mg/dL [facility] Complete Blood Count Auto Di ffon 02-26-2023 Basophils (Bld) [#/Vol] 0.1 10*3/uL Normal 0.0-0.2 [facility] Comment on above: Result Comment: PERF ORMED BY:[facility] [place], [place] [phone] MEDICAL DIRECTORJOSEPH GARCIA M.D. Performed By: #### A 1C WTH eA, CBC, PAB, LIPID, PTT, CMP, PT ####[address] Basophils/100 WBC (Bld) 0.8 % Normal . [facility] Comment on above: Performed By: #### A 1C WTH eA, CBC, PAB, LIPID, PTT, CMP, PT ####[address] Eosinophils (Bld) [#/Vol] 0.2 10*3/uL Normal 0.0-0.45 [facility] Comment on above: Performed By: #### A 1C WT eA, CBC, PAB, LIPID, PTT, CMP, PT ####[address] Eosinophils/100 WBC (Bld) 1.7 % Normal . [facility] Comment on above: Performed By: #### A 1C WTH eA, CBC, PAB, LIPID, PTT, CMP, PT ####[address] Erythrocyte distribution width (RBC) [Ratio] 13.7 % Normal 12.0-14.8 [facility] Comment on above: Performed By: #### A 1C [facility] eA, CBC, PAB, LIPID, PTT, CMP, PT ####[address] Hematocrit (Bld) [Volume fraction] 38.3 % Low 38.8-50.0 [facility] Comment on above: Performed By: #### A 1C WT eA, CBC, PAB, LIPID, PTT, CMP, PT ####[address] Hemoglobin (Bld) [Mass/Vol] 13.0 g/dL Normal 13.0-17.0 [facility] Comment on above: Performed By: #### A 1C WTH eA, CBC, PAB, LIPID, PTT, CMP, PT ####[address] Lymphocytes (Bld) [#/Vol] 1.9 10*3/uL Normal 1.00-4.8 [facility] Comment on above: Performed By: #### A 1C WT eA, CBC, PAB, LIPID, PTT, CMP, PT ####[address] Lymphocytes/100 WBC (Bld) 15.0 % Normal . [facility] Comment on above: Performed By: #### A 1C WT eA, CBC, PAB, LIPID, PTT, CMP, PT ####[address] MCH (RBC) [Entitic mass] 29.9 pg Normal 27.5-35.2 [facility] Comment on above: Performed By: #### [facility] eA, CBC, PAB, LIPID, PTT, CMP, PT ####[address] MCV (RBC) [Entitic vol] 88.0 fL Normal 83.5-101 [facility] Comment on above: Performed By: #### A [facility] eA, CBC, PAB, LIPID, PTT, CMP, PT ####[address] Mean Corpuscular HGB Conc 34.0 g/dL Normal 32.5-35.6 [facility] Comment on above: Performed By: #### A 1C [facility] eA, CBC, PAB, LIPID, PTT, CMP, PT ####[address] Monocytes (Bld) [#/Vol] 1.4 10*3/uL High 0.0-0.8 [facility] Comment on above: Performed By: #### A 1C WT eA, CBC, PAB, LIPID, PTT, CMP, PT ####[address] Monocytes/100 WBC (Bld) 10.9 % Normal . [facility] Comment on above: Performed By: #### A 1C WT eA, CBC, PAB, LIPID, PTT, CMP, PT ####[address] Neutrophils (Bld) [#/Vol] 9.1 10*3/uL High 1.8-7.7 [facility] Comment on above: Performed By: #### A 1C [facility] eA, CBC, PAB, LIPID, PTT, CMP, PT ####[address] Neutrophils/100 WBC (Bld) 71.6 % Normal . [facility] Comment on above: Performed By: #### A 1C [facility] eA, CBC, PAB, LIPID, PTT, CMP, PT ####[address] NRBC% 0.0 /100{WBC} Normal 0-0.5 [facility] Comment on above: Performed By: #### A [facility] eA, CBC, PAB, LIPID, PTT, CMP, PT ####[address] Platelet mean volume (Bld) [Entitic vol] 8.6 fL Normal 6.6-10.1 [facility] Comment on above: Performed By: #### A 1C [facility] eA, CBC, PAB, LIPID, PTT, CMP, PT ####[address] Platelets (Bld) [#/Vol] 298 10*3/uL Normal 150-450 [facility] Comment on above: Performed By: #### A 1C [facility] eA, CBC, PAB, LIPID, PTT, CMP, PT ####[address] RBC (Bld) [#/Vol] 4.36 10*6/uL Normal 3.90-5.60 [facility] Comment on above: Performed By: #### A 1C [facility] eA, CBC, PAB, LIPID, PTT, CMP, PT ####[address] WBC (Bld) [#/Vol] 12.7 10*3/uL High 4.1-10.5 [facility] Comment on above: Performed By: #### A 1C [facility] eA, CBC, PAB, LIPID, PTT, CMP, PT ####[place] [address] [place] [address] [facility] Comprehensive Metabolic Pane neil 02-26-2023 Albumin [Mass/Vol] 3.0 g/dL Low 3.5-5.7 [facility] Comment on above: Order Comment: FASTI NG N Performed By: #### A 1C [facility] eA, CBC, PAB, LIPID, PTT, CMP, PT ####[address] [address] [facility] Albumin/Globulin [Mass ratio] 1.1 {ratio} Normal [facility] Comment on above: Order Comment: FASTI NG N Performed By: #### A [facility] eA, CBC, PAB, LIPID, PTT, CMP, PT ####[place] [id number] [facility] ALP [Catalytic activity/Vol] 75 U/L Normal 34-104 [facility] Comment on above: Order Comment: FASTI NG N Performed By: #### A [facility] eA, CBC, PAB, LIPID, PTT, CMP, PT ####[address] [address] [facility] CENTER ALT [Catalytic activity/Vol] 14 U/L Normal 7-52 [facility] Comment on above: Order Comment: FASTI NG N Performed By: #### A 1C [facility] eA, CBC, PAB, LIPID, PTT, CMP, PT ####[address] [address] [facility] Anion gap [Moles/Vol] 11.1 mmol/L Normal 6.0-15.0 [facility] Comment on above: Order Comment: FASTI NG N Performed By: #### A 1C [facility] eA, CBC, PAB, LIPID, PTT, CMP, PT ####[place] [id number] [facility] AST [Catalytic activity/Vol] 15 U/L Normal 13-39 [facility] Comment on above: Order Comment: FASTI NG N Performed By: #### A 1C WT eA, CBC, PAB, LIPID, PTT, CMP, PT ####[facility] [place] [id number] [facility] Bilirubin [Mass/Vol] 1.0 mg/dL Normal 0.3-1.0 [facility] Comment on above: Order Comment: FASTI NG N Performed By: #### A 1C WTH eA, CBC, PAB, LIPID, PTT, CMP, PT ####[place] [address] [place] [id number] [facility] Calcium [Mass/Vol] 8.3 mg/dL Low 8.6-10.3 [facility] Comment on above: Order Comment: FASTI NG N Performed By: #### A 1C WT eA, CBC, PAB, LIPID, PTT, CMP, PT ####[place] [address] Chloride [Moles/Vol] 104 mmol/L Normal 98-107 [facility] Comment on above: Order Comment: FASTI NG N Performed By: #### A 1C WT eA, CBC, PAB, LIPID, PTT, CMP, PT ####[place] [address] CO2 [Moles/Vol] 26.7 mmol/L Normal 21.0-31.0 [facility] Comment on above: Order Comment: FASTI NG N Performed By: #### A 1C WT eA, CBC, PAB, LIPID, PTT, CMP, PT ####[place] [address] Creatinine [Mass/Vol] 1.14 mg/dL Significan t change down 0.70-1.30 [facility] Comment on above: Order Comment: FASTI NG N Performed By: #### A 1C WT eA, CBC, PAB, LIPID, PTT, CMP, PT ####[place] [address] [place] [phone] [facility] Creatinine Clr Calc Pharmacy 65.00 Normal [facility] Comment on above: Order Comment: FASTI NG N Performed By: #### A 1C WTH eA, CBC, PAB, LIPID, PTT, CMP, PT ####[place] [phone] [facility] GFR/1.73 sq M.predicted MDRD (S/P/Bld) [Vol rate/Area] mL/min/{1.73_m2} [facility] Comment on above: Order Comment: FASTI NG N Performed By: #### A 1C WTH eA, CBC, PAB, LIPID, PTT, CMP, PT ####[place] [address] [place] [phone] [facility] Globulin (S) [Mass/Vol] 2.7 g/dL [facility] Comment on above: Order Comment: FASTI NG N Performed By: #### A 1C WT eA, CBC, PAB, LIPID, PTT, CMP, PT ####[place] [address] Glucose [Mass/Vol] 123 mg/dL High 70-100 [facility] Comment on above: Order Comment: FASTI NG N Result Comment: [place] Glucose Reference Range is dependent on time and content of last meal. Glucose of more than 200 mg/dL in a nonstressed, ambulatory subject supports the diagnosis of Diabetes Mellitus. ADA recommended reference range Performed By: #### A 1C WT eA, CBC, PAB, LIPID, PTT, CMP, PT ####[place] [address] [place] [phone] [facility] Potassium [Moles/Vol] 3.8 mmol/L Normal 3.5-5.1 [facility] Comment on above: Order Comment: FASTI NG N Performed By: #### A 1C WTH eA, CBC, PAB, LIPID, PTT, CMP, PT ####[place] [address] [place] [phone] [facility] Protein [Mass/Vol] 5.7 g/dL Low 6.4-8.9 [facility] Comment on above: Order Comment: FASTI NG N Performed By: #### A 1C WTH eA, CBC, PAB, LIPID, PTT, CMP, PT ####[place] [address] [place] [address] [facility] Sodium [Moles/Vol] 138 mmol/L Normal 136-145 [facility] Comment on above: Order Comment: FASTI NG N Performed By: #### A 1C WTH eA, CBC, PAB, LIPID, PTT, CMP, PT ####[facility] [place] [phone] [facility] Urea nitrogen [Mass/Vol] 13 mg/dL Normal 7-25 [facility] Comment on above: Order Comment: FASTI NG N Performed By: #### A 1C WTH eA, CBC, PAB, LIPID, PTT, CMP, PT ####[facility] [id number] [place] [address] [facility] ECG 12 lead ECGon 02-26-2023 ECG 12 lead ECG Normal [facility] Glucose Poct Glucometerson 1 Glucose [Mass/Vol] 224 mg/dL Normal [facility] Comment on above: Result Comment: [place] Glucose Reference Range is dependent on time and content of last meal. Glucose of more than 200 mg/dL in a nonstressed, ambulatory subject supports the diagnosis of Diabetes Mellitus.PERFORMED BY:[place] [address] [address] [place], [place] [phone] MEDICAL DIRECTORJOSEPH GARCIA M.D. Performed By: #### G LULS ####Point of Care testing, Commemt1 Glu2: Cleaned Meter [facility] Comment on above: Result Comment: PERF ORMED BY:[address] [place], [place] [phone] MEDICAL DIRECTORJOSEPH GARCIA M.D. Performed By: #### G LULS ####Point of Care testing, Glucose [Mass/Vol] 270 mg/dL Normal [facility] Comment on above: Result Comment: [place] om Glucose Reference Range is dependent on time and content of last meal. Glucose of more than 200 mg/dL in a nonstressed, ambulatory subject supports the diagnosis of Diabetes Mellitus. Performed By: #### G LULS ####Point of Care testing, Glucose [Mass/Vol] 135 mg/dL Normal [facility] Comment on above: Result Comment: [place] om Glucose Reference Range is dependent on time and content of last meal. Glucose of more than 200 mg/dL in a nonstressed, ambulatory subject supports the diagnosis of Diabetes Mellitus.PERFORMED BY:[facility] [place], [place] [phone] MEDICAL DIRECTORJOSEPH GARCIA M.D. Performed By: #### G LULS ####Point of Care testing, Commemt1 Glu2: Cleaned Meter Normal [facility] Comment on above: Result Comment: PERF ORMED BY:[facility] [place], [place] [phone] MEDICAL DIRECTORJOSEPH GARCIA M.D. Performed By: #### G LULS ####Point of Care testing, Glucose [Mass/Vol] 134 mg/dL [facility] Comment on above: Result Comment: [facility] Glucose Reference Range is dependent on time and content of last meal. Glucose of more than 200 mg/dL in a nonstressed, ambulatory subject supports the diagnosis of Diabetes Mellitus. Performed By: #### G LULS ####Point of Care testing, Glucose mean value [Mass/vol ume] in Blood Estimated from glycated hemoglobinOrdered By: Geo Thomas on 02-26-2023 Average glucose Estimated from glycated hemoglobin (Bld) [Mass/Vol] 160 mg/dL [facility] Gram Stainon 02-26-2023 Microscopic observation Gram stain Nom (Unsp spec) Comment Left 5th MPJ Gram Stain Result Rare White Blood Cells No Bacteria Seen PERFORMED BY: [facility] [address] [place] [address] PATHOLOGIST SKELP PROCESSOR JOSEPH GARCIA M.D. [facility] Comment on above: Performed By: #### G S, AERC ####[facility] [place] [address] [facility] Gram stain for investigation of transfusion reactionOrdered By: Rohan Han on 02-26-2023 Microscopic observation Gram stain Nom (Unsp spec) [facility] Microscopic observation Gram stain Nom (Unsp spec) [facility] Hemoglobin A1c percentageOrd ered By: Geo Thomas on 02-26-2023 HbA1c (Bld) [Mass fraction] 7.2 % 4.3-5.6 [facility] Comment on above: Increased risk for d iabetes: 5.7 - 6.4diabetes: >6.4glycemic control for adults with diabetes: <7.0 INR in Platelet poor plasma by Coagulation assayOrdered By: Geo Thomas on 02-26-2023 INR Coag (PPP) [Relative time] 1.0 {INR} [facility] Comment on above: INR Therapeutic Rang e A) Pre- and Peroperative OAT started two weeks before surgery. NOT HIP SURGERY: 1.5 - 2.5 HIP SURGERY: 2 - 3B) Primary and secondary prevention of venous THROMBOSIS: 2 - 3C) Active venous thrombosis, pulmonary embolismand prevention of recurrent venous thrombosis: 2 - 3D) Prevention of arterial thromboembolismincluding patients with mechanical heart valves: 3 - 4.5 Neil 02-26-2023 L Normal [facility] Lipid Panelon 02-26-2023 Cholesterol [Mass/Vol] 92 mg/dL Low 140-200 [facility] Comment on above: Order Comment: FASTI NG N Result Comment: Chol less than 200 mg/dl low risk Chol 201-239 mg/dl borderline risk Chol 240 mg/dl and greater high risk Performed By: #### A 1C WTH eA, CBC, PAB, LIPID, PTT, CMP, PT ####[facility] [id number] Cholesterol in HDL [Mass/Vol] 23 mg/dL Normal 23-92 [facility] Comment on above: Order Comment: FASTI NG N Result Comment: HDL CHOL ATP-III CLASSIFICATION Cardiovascular Risk HDL > or equal to 60 mg/dL LOW HDL < 40 mg/dL HIGH Performed By: #### A 1C WTH eA, CBC, PAB, LIPID, PTT, CMP, PT ####[facility] [place] [phone] [facility] Cholesterol.total/Chol esterol in HDL [Mass ratio] 4.0 {ratio} Normal <5.0 [facility] Comment on above: Order Comment: FASTI NG N Result Comment: PERF ORMED BY:[address] [place], [place] [phone] MEDICAL DIRECTORJOSEPH GARCIA M.D. Performed By: #### A 1C WTH eA, CBC, PAB, LIPID, PTT, CMP, PT ####[facility] [place] [phone] [facility] LDL Cholesterol,Calculated 39 mg/dL Normal 0-100 [facility] Comment on above: Order Comment: BABATUNDE Jackman Result Comment: LDL ATP III CLASSIFICATION LDL less than 100 mg/dL Optimal LDL 100-129 mg/dL Near or above optimal LDL 130-159 mg/dL Borderline high LDL 160-189 mg/dL High LDL greater than 189 mg/dL Very high Performed By: #### A 1C WTH eA, CBC, PAB, LIPID, PTT, CMP, PT ####[place] [address] [place] [phone] [facility] Triglyceride w/Reflex 149 mg/dL Normal 0-149 [facility] Comment on above: Order Comment: DORISI KATHIE N Result Comment: TRIG ATP III CLASSIFICATION TRIG less than 150 mg/dL Normal TRIG 150-199 mg/dL Borderline high TRIG 200-500 mg/dL High TRIG greater than 500 mg/dL Very high Standard traceable to the Center for Disease Conrtrol and Prevention (CDC) test method. Performed By: #### A 1C WTH eA, CBC, PAB, LIPID, PTT, CMP, PT ####[facility] VLDL CHOLESTEROL 29 mg/dL Normal [facility] Comment on above: Order Comment: BABATUNDE Jackman Performed By: #### A 1C WTH eA, CBC, PAB, LIPID, PTT, CMP, PT ####[facility] [place] [phone] [facility] Partial Thromboplastin Timeo n 02-26-2023 aPTT Coag (Bld) [Time] 31.6 s Normal 25.1-36.5 [facility] Comment on above: Result Comment: A he matocrit value greater than 55% may lead to inaccurate results in coagulation testing. Patients having hematocrit values >55% require a special collection tube for coagulation studies. Please contact the laboratory at [phone] for redraw instructions.PERFORMED BY:[address] [place]Tr[place], [place] [phone] MEDICAL DIRECTORJOSEPH GARCIA M.D. Performed By: #### A 1C WT eA, CBC, PAB, LIPID, PTT, CMP, PT ####[place] [address] [place] [address] [facility] Prealbuminon 02-26-2023 Prealbumin [Mass/Vol] 15.7 mg/dL Low 17.0-34.0 [facility] Comment on above: Order Comment: FASTI NG N Performed By: #### A 1C WT eA, CBC, PAB, LIPID, PTT, CMP, PT ####[place] [address] [place] [address] [facility] Prealbumin [Mass/volume] in Serum or PlasmaOrdered By: Geo Thomas on 02-26-2023 Prealbumin [Mass/Vol] 15.7 mg/dL 17.0-34.0 [facility] Prothrombin Time INRon 02-26 INR Coag (PPP) [Relative time] 1.0 {INR} Normal [facility] Comment on above: Result Comment: INR Therapeutic Range A) Pre- and Peroperative OAT started two weeks before surgery. NOT HIP SURGERY: 1.5 - 2.5 HIP SURGERY: 2 - 3 B) Primary and secondary prevention of venous THROMBOSIS: 2 - 3 C) Active venous thrombosis, pulmonary embolism and prevention of recurrent venous thrombosis: 2 - 3 D) Prevention of arterial thromboembolism including patients with mechanical heart valves: 3 - 4.5 Performed By: #### A 1C WT eA, CBC, PAB, LIPID, PTT, CMP, PT ####[place] [address] [place] [address] [facility] PT Coag (PPP) [Time] 12.3 s Normal 9.0-12.9 [facility] Comment on above: Result Comment: A he matocrit value greater than 55% may lead to inaccurate results in coagulation testing. Patients having hematocrit values >55% require a special collection tube for coagulation studies. Please contact the laboratory at [phone] for redraw instructions. Performed By: #### A 1C [facility] eA, CBC, PAB, LIPID, PTT, CMP, PT ####[facility] [id number] Prothrombin time (PT)Ordered By: Geo Thomas on 02-26-2023 PT Coag (PPP) [Time] 12.3 s 9.0-12.9 [facility] Comment on above: A hematocrit value g reater than 55% may lead to inaccurate results in coagulation testing. Patients having hematocrit values >55% require a special collection tube for coagulation studies. Please contact the laboratory at [phone] for redraw instructions. Serum or plasma high density lipoprotein (HDL) cholesterol measurementOrdered By: Geo Thomas on 02-26-2023 Cholesterol in HDL [Mass/Vol] 23 mg/dL 23-92 [facility] Comment on above: HDL CHOL ATP-III CLA SSIFICATION Cardiovascular RiskHDL > or equal to 60 mg/dL LOWHDL < 40 mg/dL HIGH Serum or plasma total choles terol/high density lipoprotein (HDL) cholesterol mass ratOrdered By: Geo Thomas on 02-26-2023 Cholesterol.total/Chol esterol in HDL [Mass ratio] 4.0 {ratio} <5.0 [facility] Triglyceride [Mass/volume] i n Serum or PlasmaOrdered By: Geo Thomas on 02-26-2023 Triglyceride [Mass/Vol] 149 mg/dL 0-149 [facility] Comment on above: TRIG ATP III CLASSIF ICATIONTRIG less than 150 mg/dL NormalTRIG 150-199 mg/dL Borderline highTRIG 200-500 mg/dL High TRIG greater than 500 mg/dL Very highStandard traceable to the Center for Disease Conrtrol and Prevention (CDC) test method. Vancomycin [Mass/volume] in Serum or Plasma --peakOrdered By: Brennan Cerrato on 02-26-2023 Vancomycin peak [Mass/Vol] 40.5 ug/mL 20.0-40.0 [facility] Comment on above: Last dose: - Vancomycin,Peakon 02-26-2023 Vancomycin,Peak 40.5 ug/mL High 20.0-40.0 [facility] Comment on above: Order Comment: Comme nt ?DRAW 1 HOUR AFTER INFUSION COMPLETES Date of last dose?: 20230226 Time of last dose?: 1500 Result Comment: Last dose: -PERFORMED BY:[place] [address] [address] [place], [place] [phone] MEDICAL DIRECTORJOSEPH GARCIA M.D. Performed By: #### V ANCP ####[facility] [id number] [place] [address] [facility] XR foot LT 2Von 02-26-2023 XR foot LT 2V Normal [facility] Glucose Poct Glucometerson 1 Glucose [Mass/Vol] 172 mg/dL Normal [facility] Comment on above: Result Comment: [facility] Glucose Reference Range is dependent on time and content of last meal. Glucose of more than 200 mg/dL in a nonstressed, ambulatory subject supports the diagnosis of Diabetes Mellitus.PERFORMED BY:[place] [address] [address] [place], [place] [phone] MEDICAL DIRECTORJOSEPH GARCIA M.D. Performed By: #### G LULS ####Point of Care testing, Glucose [Mass/Vol] 208 mg/dL Normal [facility] Comment on above: Result Comment: [facility] Glucose Reference Range is dependent on time and content of last meal. Glucose of more than 200 mg/dL in a nonstressed, ambulatory subject supports the diagnosis of Diabetes Mellitus.PERFORMED BY:[place] [address] [address] [place], [place] [phone] MEDICAL SILVIA GARCIA M.D. Performed By: #### G LULS ####Point of Care testing, Glucose [Mass/Vol] 85 mg/dL Normal [facility] Comment on above: Result Comment: [facility] Glucose Reference Range is dependent on time and content of last meal. Glucose of more than 200 mg/dL in a nonstressed, ambulatory subject supports the diagnosis of Diabetes Mellitus.PERFORMED BY:[place] [address] [address] [place], [place] [phone] MEDICAL DIRECTORJOSEPH GARCIA M.D. Performed By: #### G LUANURAG ####Point of Care testing, Glucose [Mass/Vol] 86 mg/dL Normal [facility] Comment on above: Result Comment: [facility] Glucose Reference Range is dependent on time and content of last meal. Glucose of more than 200 mg/dL in a nonstressed, ambulatory subject supports the diagnosis of Diabetes Mellitus.PERFORMED BY:[place] [address] [address] [place], [place] [phone] MEDICAL SILVIA GARCIA M.D. Performed By: #### G LUANURAG ####Point of Care testing, MR foot LT wo conon 02-26-20 23 MR foot LT wo con Normal [facility] Vancomycin,Peakon 02-25-2023 Vancomycin,Peak 21.1 ug/mL Normal 20.0-40.0 [facility] Comment on above: Order Comment: Comme nt ?DRAW 1 HOUR AFTER INFUSION COMPLETES Date of last dose?: 20230223 Time of last dose?: 1300 Result Comment: Last dose: -PERFORMED BY:[place] [address] [address] [place], [place] [phone] MEDICAL SILVIA GARCIA M.D. Performed By: #### V ANCP ####[address] [address] [facility] Vancomycin,Troughon 02-26-20 23 Vancomycin,Trough 13.7 ug/mL Normal 10.0-20.0 [facility] Comment on above: Order Comment: Time of next dose? 1000 Date of last dose?: 20230223 Time of last dose?: 0000 Result Comment: Last dose: -PERFORMED BY:[place] [address] [address] [place], [place] [phone] MEDICAL SILVIA GARCIA M.D. Performed By: #### V ANCT ####[address] [address] [facility] Basic Metabolic Panelon 10-0 Anion gap [Moles/Vol] 8.6 mmol/L Normal 6.0-15.0 [facility] Comment on above: Performed By: #### C TOÑA, BMP ####[place] [address] [place] [address] [facility] Calcium [Mass/Vol] 8.1 mg/dL Low 8.6-10.3 [facility] Comment on above: Performed By: #### C TOÑA, BMP ####[place] [address] [place] [address] [place] Chloride [Moles/Vol] 104 mmol/L Normal 98-107 [facility] Comment on above: Performed By: #### C TOÑA, BMP ####[place] [address] [place] [address] [facility] CO2 [Moles/Vol] 27.2 mmol/L Normal 21.0-31.0 [facility] Comment on above: Performed By: #### C TOÑA, BMP ####[address] [address] [facility] Creatinine [Mass/Vol] 0.61 mg/dL Low 0.70-1.30 [facility] Comment on above: Performed By: #### C TOÑA, BMP ####[address] [address] [place] Creatinine Clr Calc Pharmacy 98.52 [facility] Comment on above: Result Comment: PERF ORMED BY:[address] [place], [place] [phone] MEDICAL SILVIA GARCIA M.D. Performed By: #### C TOÑA, BMP ####[address] [address] [place] GFR/1.73 sq M.predicted MDRD (S/P/Bld) [Vol rate/Area] mL/min/{1.73_m2} [facility] Comment on above: Performed By: #### C TOÑA, BMP ####[place] [address] [place] [address] [facility] Glucose [Mass/Vol] 162 mg/dL High 70-100 [facility] Comment on above: Result Comment: [place] om Glucose Reference Range is dependent on time and content of last meal. Glucose of more than 200 mg/dL in a nonstressed, ambulatory subject supports the diagnosis of Diabetes Mellitus. ADA recommended reference range Performed By: #### C TOÑA, OUSMANE ####[facility] [place] [address] [facility] Potassium [Moles/Vol] 3.8 mmol/L Normal 3.5-5.1 [facility] Comment on above: Performed By: #### C TOÑA, BMP ####[facility] [place] [address] [facility] Sodium [Moles/Vol] 136 mmol/L Normal 136-145 [facility] Comment on above: Performed By: #### C TOÑA, OUSMANE ####[facility] [place] [address] [facility] Urea nitrogen [Mass/Vol] 9 mg/dL Normal 7-25 [facility] Comment on above: Performed By: #### C TOÑA, BMP ####[place] [address] [place] [address] [facility] Glucose Poct Glucometerson 1 Glucose [Mass/Vol] 201 mg/dL Normal [facility] Comment on above: Result Comment: [facility] Glucose Reference Range is dependent on time and content of last meal. Glucose of more than 200 mg/dL in a nonstressed, ambulatory subject supports the diagnosis of Diabetes Mellitus.PERFORMED BY:[place] [address] [address] [place], [place] [phone] MEDICAL DIRECTORJOSEPH GARCIA M.D. Performed By: #### G LULS ####Point of Care testing, Commemt1 Glu2: Cleaned Meter Normal [facility] Comment on above: Result Comment: PERF ORMED BY:[place] [address] [address] [place], [place] [phone] MEDICAL DIRECTORJOSEPH GARCIA M.D. Performed By: #### G LULS ####Point of Care testing, Glucose [Mass/Vol] 141 mg/dL Normal [facility] Comment on above: Result Comment: [place] om Glucose Reference Range is dependent on time and content of last meal. Glucose of more than 200 mg/dL in a nonstressed, ambulatory subject supports the diagnosis of Diabetes Mellitus. Performed By: #### G LUANURAG ####Point of Care testing, Glucose [Mass/Vol] 169 mg/dL Normal [facility] Comment on above: Result Comment: [place] om Glucose Reference Range is dependent on time and content of last meal. Glucose of more than 200 mg/dL in a nonstressed, ambulatory subject supports the diagnosis of Diabetes Mellitus.PERFORMED BY:[address] [place], [place] [phone] MEDICAL DIRECTORJOSEPH GARCIA M.D. Performed By: #### G VALERY ####Point of Care testing, Glucose [Mass/Vol] 169 mg/dL Normal [facility] Comment on above: Result Comment: [place] om Glucose Reference Range is dependent on time and content of last meal. Glucose of more than 200 mg/dL in a nonstressed, ambulatory subject supports the diagnosis of Diabetes Mellitus.PERFORMED BY:[address] [place], [place] [phone] MEDICAL SILVIA GARCIA M.D. Performed By: #### G VALERY ####Point of Care testing, Hemogram CBC Without Diffon 02-24-2023 Erythrocyte distribution width (RBC) [Ratio] 13.8 % Normal 12.0-14.8 [facility] Comment on above: Performed By: #### C OUSMANE DING ####[address] [address] [facility] Hematocrit (Bld) [Volume fraction] 36.5 % Low 38.8-50.0 [facility] Comment on above: Performed By: #### C OUSMANE DING ####[address] [address] [facility] Hemoglobin (Bld) [Mass/Vol] 12.2 g/dL Low 13.0-17.0 [facility] Comment on above: Performed By: #### C BCNO, BMP ####[address] [place] [address] [facility] MCH (RBC) [Entitic mass] 29.6 pg Normal 27.5-35.2 [facility] Comment on above: Performed By: #### C TOÑA, BMP ####[address] [place] [address] [facility] MCV (RBC) [Entitic vol] 88.4 fL Normal 83.5-101 [facility] [facility] Comment on above: Performed By: #### C TOÑA, BMP ####[address] [place] [address] [facility] Mean Corpuscular HGB Conc 33.5 g/dL Normal 32.5-35.6 [facility] Comment on above: Performed By: #### C TOÑA, BMP ####[address] [address] [facility] Platelet mean volume (Bld) [Entitic vol] 8.2 fL Normal 6.6-10.1 [facility] Comment on above: Result Comment: PERF ORMED BY:[address] [place], [place] [phone] MEDICAL DIRECTORJOSEPH GARCIA M.D. Performed By: #### C TOÑA, BMP ####[address] [place] [address] [facility] Platelets (Bld) [#/Vol] 290 10*3/uL Normal 150-450 [facility] Comment on above: Performed By: #### C TOÑA, BMP ####[address] [address] [facility] RBC (Bld) [#/Vol] 4.13 10*6/uL Normal 3.90-5.60 [facility] Comment on above: Performed By: #### C TOÑA, BMP ####[address] [address] [facility] WBC (Bld) [#/Vol] 11.9 10*3/uL High 4.1-10.5 [facility] Comment on above: Performed By: #### C BCNO, BMP ####[facility] [id number] [place] [address] [facility] Alanine aminotransferase [En zymatic activity/volume] in Serum or PlasmaOrdered By: Rico Carr on 02-23-2023 ALT [Catalytic activity/Vol] 31 U/L 7-52 [facility] Albumin [Mass/volume] in Ser um or Plasma by Bromocresol green (BCG) dye binding methoOrdered By: Rico Carr on 02-23-2023 Albumin BCG dye [Mass/Vol] 3.6 g/dL 3.5-5.7 [facility] Alkaline phosphatase [Enzyma tic activity/volume] in Serum or PlasmaOrdered By: Rico Carr on 02-23-2023 ALP [Catalytic activity/Vol] 94 U/L 34-104 [facility] Aspartate aminotransferase [ Enzymatic activity/volume] in Serum or PlasmaOrdered By: Rico Carr on 02-23-2023 AST [Catalytic activity/Vol] 16 U/L 13-39 [facility] Bacterial blood cultureOrder ed By: Rico Carr on 02-23-2023 Bacteria identified Cx Nom (Bld) NO GROWTH 5 DAYS [facility] Bacteria identified Cx Nom (Bld) NO GROWTH 5 DAYS [facility] Basophils Auto (Bld) [#/Vol] Ordered By: Rico Carr on 02-23-2023 Basophils (Bld) [#/Vol] 0.1 10*3/uL 0.0-0.2 [facility] Basophils/100 WBC Auto (Bld) Ordered By: Rico Carr on 02-23-2023 Basophils/100 WBC (Bld) 0.6 % . [facility] Bilirubin.total [Mass/volume ] in Serum or PlasmaOrdered By: Rico Carr on 02-23-2023 Bilirubin [Mass/Vol] 0.9 mg/dL 0.3-1.0 [facility] Blood Cultureon 02-23-2023 Bacteria identified Cx Nom (Bld) NO GROWTH 5 DAYS PERFORMED BY: [facility] [address] [place] [address] PATHOLOGIST SKELP PROCESSOR JOSEPH GARCAI M.D. [facility] [place] Comment on above: Performed By: #### L ACTIC, CBC, CMP, CUBLD ####[address] [place] [id number] [facility] Bacteria identified Cx Nom (Bld) NO GROWTH 5 DAYS PERFORMED BY: [facility] [address] [place] [address] PATHOLOGIST SKELP PROCESSOR JOSEPH GARCIA M.D. [facility] Comment on above: Performed By: #### L ACTIC, CBC, CMP, CUBLD ####[id number] [facility] Calcium [Mass/volume] in Ser um or PlasmaOrdered By: Rico Carr on 02-23-2023 Calcium [Mass/Vol] 8.7 mg/dL 8.6-10.3 [facility] Carbon dioxide, total [Moles /volume] in Serum or PlasmaOrdered By: Rico Carr on 02-23-2023 CO2 [Moles/Vol] 25.0 mmol/L 21.0-31.0 [facility] Chloride [Moles/volume] in S rene or PlasmaOrdered By: Rico Carr on 02-23-2023 Chloride [Moles/Vol] 101 mmol/L 98-107 [facility] Complete Blood Count Auto Di ffon 02-23-2023 Basophils (Bld) [#/Vol] 0.1 10*3/uL Normal 0.0-0.2 [facility] Comment on above: Result Comment: PERF ORMED BY:[facility] [place], [place] [phone] MEDICAL DIRECTORJOSEPH GARCIA M.D. Performed By: #### L ACTIC, CBC, CMP, CUBLD ####[id number] [place] Basophils/100 WBC (Bld) 0.6 % Normal . [facility] Comment on above: Performed By: #### L ACTIC, CBC, CMP, CUBLD ####[id number] [place] Eosinophils (Bld) [#/Vol] 0.1 10*3/uL Normal 0.0-0.45 [facility] Comment on above: Performed By: #### L ACTIC, CBC, CMP, CUBLD ####[address] Eosinophils/100 WBC (Bld) 1.1 % Normal . [facility] Comment on above: Performed By: #### L ACTIC, CBC, CMP, CUBLD ####[address] Erythrocyte distribution width (RBC) [Ratio] 14.0 % Normal 12.0-14.8 [facility] Comment on above: Performed By: #### L ACTIC, CBC, CMP, CUBLD ####[address] Hematocrit (Bld) [Volume fraction] 40.6 % Normal 38.8-50.0 [facility] Comment on above: Performed By: #### L ACTIC, CBC, CMP, CUBLD ####[address] Hemoglobin (Bld) [Mass/Vol] 13.8 g/dL Normal 13.0-17.0 [facility] Comment on above: Performed By: #### L ACTIC, CBC, CMP, CUBLD ####[address] Lymphocytes (Bld) [#/Vol] 2.4 10*3/uL Normal 1.00-4.8 [facility] Comment on above: Performed By: #### L ACTIC, CBC, CMP, CUBLD ####[address] Lymphocytes/100 WBC (Bld) 18.7 % Normal . [facility] Comment on above: Performed By: #### L ACTIC, CBC, CMP, CUBLD ####[address] MCH (RBC) [Entitic mass] 30.0 pg Normal 27.5-35.2 [facility] Comment on above: Performed By: #### L ACTIC, CBC, CMP, CUBLD ####[address] MCV (RBC) [Entitic vol] 88.1 fL Normal 83.5-101 [facility] Comment on above: Performed By: #### L ACTIC, CBC, CMP, CUBLD ####[address] Mean Corpuscular HGB Conc 34.1 g/dL Normal 32.5-35.6 [facility] Comment on above: Performed By: #### L ACTIC, CBC, CMP, CUBLD ####[address] Monocytes (Bld) [#/Vol] 1.3 10*3/uL High 0.0-0.8 [facility] Comment on above: Performed By: #### L ACTIC, CBC, CMP, CUBLD ####[address] Monocytes/100 WBC (Bld) 18.95 % Normal 0.00-20.00 [facility] Comment on above: Performed By: #### L ACTIC, CBC, CMP, CUBLD ####[address] Monocytes/100 WBC (Bld) 10.0 % Normal . [facility] Comment on above: Performed By: #### L ACTIC, CBC, CMP, CUBLD ####[address] Neutrophils (Bld) [#/Vol] 9.0 10*3/uL High 1.8-7.7 [facility] Comment on above: Performed By: #### L ACTIC, CBC, CMP, CUBLD ####[address] Neutrophils/100 WBC (Bld) 69.6 % Normal . [facility] Comment on above: Performed By: #### L ACTIC, CBC, CMP, CUBLD ####[id number] [facility] NRBC% 0.1 /100{WBC} Normal 0-0.5 [facility] Comment on above: Performed By: #### L ACTIC, CBC, CMP, CUBLD ####[id number] [facility] Platelet mean volume (Bld) [Entitic vol] 8.6 fL Normal 6.6-10.1 [facility] Comment on above: Performed By: #### L ACTIC, CBC, CMP, CUBLD ####[address] Platelets (Bld) [#/Vol] 363 10*3/uL Normal 150-450 [facility] Comment on above: Performed By: #### L ACTIC, CBC, CMP, CUBLD ####[address] RBC (Bld) [#/Vol] 4.61 10*6/uL Normal 3.90-5.60 [facility] Comment on above: Performed By: #### L ACTIC, CBC, CMP, CUBLD ####[address] WBC (Bld) [#/Vol] 13.0 10*3/uL High 4.1-10.5 [facility] Comment on above: Performed By: #### L ACTIC, CBC, CMP, CUBLD ####[id number] [facility] Comprehensive Metabolic Pane neil 02-23-2023 Albumin [Mass/Vol] 3.6 g/dL Normal 3.5-5.7 [facility] Comment on above: Performed By: #### L ACTIC, CBC, CMP, CUBLD ####[address] Albumin/Globulin [Mass ratio] 1.1 {ratio} Normal [facility] Comment on above: Performed By: #### L ACTIC, CBC, CMP, CUBLD ####[address] [place] [address] [facility] ALP [Catalytic activity/Vol] 94 U/L Normal 34-104 [facility] Comment on above: Performed By: #### L ACTIC, CBC, CMP, CUBLD ####[address] [place] [address] [facility] ALT [Catalytic activity/Vol] 31 U/L Normal 7-52 [facility] Comment on above: Performed By: #### L ACTIC, CBC, CMP, CUBLD ####[address] [address] [facility] Anion gap [Moles/Vol] 10.8 mmol/L Normal 6.0-15.0 [facility] Comment on above: Performed By: #### L ACTIC, CBC, CMP, CUBLD ####[address] [address] [facility] AST [Catalytic activity/Vol] 16 U/L Normal 13-39 [facility] Comment on above: Performed By: #### L ACTIC, CBC, CMP, CUBLD ####[address] [address] [facility] Bilirubin [Mass/Vol] 0.9 mg/dL Normal 0.3-1.0 [facility] Comment on above: Performed By: #### L ACTIC, CBC, CMP, CUBLD ####[address] [address] [facility] Calcium [Mass/Vol] 8.7 mg/dL Normal 8.6-10.3 [facility] Comment on above: Performed By: #### L ACTIC, CBC, CMP, CUBLD ####[address] [address] [facility] Chloride [Moles/Vol] 101 mmol/L Normal 98-107 [facility] Comment on above: Performed By: #### L ACTIC, CBC, CMP, CUBLD ####[address] [address] [facility] CO2 [Moles/Vol] 25.0 mmol/L Normal 21.0-31.0 [facility] Comment on above: Performed By: #### L ACTIC, CBC, CMP, CUBLD ####[address] Creatinine [Mass/Vol] 0.74 mg/dL Normal 0.70-1.30 [facility] Comment on above: Performed By: #### L ACTIC, CBC, CMP, CUBLD ####[address] Creatinine Clr Calc Pharmacy 97.63 [facility] [place] Comment on above: Result Comment: PERF ORMED BY:[address] [place], [place] [phone] MEDICAL DIRECTORJOSEPH GARCIA M.D. Performed By: #### L ACTIC, CBC, CMP, CUBLD ####[address] GFR/1.73 sq M.predicted MDRD (S/P/Bld) [Vol rate/Area] mL/min/{1.73_m2} [facility] Comment on above: Performed By: #### L ACTIC, CBC, CMP, CUBLD ####[address] Globulin (S) [Mass/Vol] 3.4 g/dL [facility] Comment on above: Performed By: #### L ACTIC, CBC, CMP, CUBLD ####[address] Glucose [Mass/Vol] 188 mg/dL High 70-100 [facility] Comment on above: Result Comment: [place] Glucose Reference Range is dependent on time and content of last meal. Glucose of more than 200 mg/dL in a nonstressed, ambulatory subject supports the diagnosis of Diabetes Mellitus. ADA recommended reference range Performed By: #### L ACTIC, CBC, CMP, CUBLD ####[address] Potassium [Moles/Vol] 3.8 mmol/L Normal 3.5-5.1 [facility] Comment on above: Performed By: #### L ACTIC, CBC, CMP, CUBLD ####[address] Protein [Mass/Vol] 7.0 g/dL Normal 6.4-8.9 [facility] Comment on above: Performed By: #### L ACTIC, CBC, CMP, CUBLD ####[address] Sodium [Moles/Vol] 133 mmol/L Low 136-145 [facility] Comment on above: Performed By: #### L ACTIC, CBC, CMP, CUBLD ####[address] Urea nitrogen [Mass/Vol] 13 mg/dL Normal 7-25 [facility] Comment on above: Performed By: #### L ACTIC, CBC, CMP, CUBLD ####[address] Creatinine [Mass/volume] in Serum or PlasmaOrdered By: Rico Carr on 02-23-2023 Creatinine [Mass/Vol] 0.74 mg/dL 0.70-1.30 [facility] Eosinophils Auto (Bld) [#/Vo l]Ordered By: Rico Carr on 02-23-2023 Eosinophils (Bld) [#/Vol] 0.1 10*3/uL 0.0-0.45 [facility] Eosinophils/100 WBC Auto (Bl d)Ordered By: Rico Carr on 02-23-2023 Eosinophils/100 WBC (Bld) 1.1 % . [facility] Erythrocyte distribution wid th Auto (RBC) [Ratio]Ordered By: Rico Carr on 02-23-2023 Erythrocyte distribution width (RBC) [Ratio] 14.0 % 12.0-14.8 [facility] Globulin Calc (S) [Mass/Vol] Ordered By: Rico Carr on 02-23-2023 Globulin (S) [Mass/Vol] 3.4 g/dL [facility] Glucose [Mass/volume] in Ser um or PlasmaOrdered By: Rico Carr on 02-23-2023 Glucose [Mass/Vol] 188 mg/dL 70-100 [facility] Comment on above: ADA recommended refe rence rangeRandom Glucose Reference Range is dependent on time and content of last meal. Glucose of more than 200 mg/dL in a nonstressed, ambulatory subject supports the diagnosis of Diabetes Mellitus. Hematocrit Auto (Bld) [Volum e fraction]Ordered By: Rico Carr on 02-23-2023 Hematocrit (Bld) [Volume fraction] 40.6 % 38.8-50.0 [facility] Hemoglobin [Mass/volume] in BloodOrdered By: Rico Carr on 02-23-2023 Hemoglobin (Bld) [Mass/Vol] 13.8 g/dL 13.0-17.0 [facility] Lactate [Moles/volume] in Se rum or PlasmaOrdered By: Rico Carr on 02-23-2023 Lactate [Moles/Vol] 1.9 mmol/L 0.5-2.2 [facility] Lactate [Moles/Vol] 2.4 mmol/L 0.5-2.2 [facility] Comment on above: Critical Result : Ca lled to and read back by: NIKKI HOPE/ER at: 02/23/2023 12:53:26 by:[id number] Lactic Acidon 02-23-2023 Lactate [Moles/Vol] 2.4 mmol/L Off scale high 0.5-2.2 [facility] Comment on above: Result Comment: Crit ical Result : Called to and read back by: NIKKI HOPE/ER at: 02/23/2023 12:53:26 by:[id number] BY:[facility] [place], [place] [phone] MEDICAL DIRECTORJOSEPH GARCIA M.D. Performed By: #### L ACTIC, CBC, CMP, CUBLD ####[facility] [place] [address] [facility] Lactic Acid Reflexon 023 Lactic Acid Reflex 1.9 mmol/L Normal 0.5-2.2 [facility] Comment on above: Result Comment: PERF ORMED BY:[facility] [place], [place] [phone] MEDICAL DIRECTORJOSEPH GARCIA M.D. Performed By: #### L ACTIC RFX ####[facility] [id number] [place] [address] [facility] Leukocytes [#/volume] correc jewel for nucleated erythrocytes in Blood by Automated counOrdered By: Rico Carr on 02-23-2023 WBC corrected for nucl RBC Auto (Bld) [#/Vol] 13.0 10*3/uL 4.1-10.5 [facility] Lymphocytes Auto (Bld) [#/Vo l]Ordered By: Rico Carr on 02-23-2023 Lymphocytes (Bld) [#/Vol] 2.4 10*3/uL 1.00-4.8 [facility] Lymphocytes/100 WBC Auto (Bl d)Ordered By: Rico Carr on 02-23-2023 Lymphocytes/100 WBC (Bld) 18.7 % . [facility] MCH Auto (RBC) [Entitic mass ]Ordered By: Rico Carr on 02-23-2023 MCH (RBC) [Entitic mass] 30.0 pg 27.5-35.2 [facility] MCHC Auto (RBC) [Mass/Vol]Or dered By: Rico Carr on 02-23-2023 MCHC (RBC) [Mass/Vol] 34.1 g/dL 32.5-35.6 [facility] MCV Auto (RBC) [Entitic vol] Ordered By: Rico Carr on 02-23-2023 MCV (RBC) [Entitic vol] 88.1 fL 83.5-101 [facility] Monocyte distribution width [Entitic volume] in Blood by AutomatedOrdered By: Rico Carr on 02-23-2023 Monocyte distribution width Auto (Bld) [Entitic vol] 18.95 % 0.00-20.00 [facility] Monocytes Auto (Bld) [#/Vol] Ordered By: Rico Carr on 02-23-2023 Monocytes (Bld) [#/Vol] 1.3 10*3/uL 0.0-0.8 [facility] Monocytes/100 WBC Auto (Bld) Ordered By: Rico Carr on 02-23-2023 Monocytes/100 WBC (Bld) 10.0 % . [facility] Neutrophils Auto (Bld) [#/Vo l]Ordered By: Rico Carr on 02-23-2023 Neutrophils (Bld) [#/Vol] 9.0 10*3/uL 1.8-7.7 [facility] Neutrophils/100 WBC Auto (Bl d)Ordered By: Rico Carr on 02-23-2023 Neutrophils/100 WBC (Bld) 69.6 % . [facility] No Panel InformationOrdered By: Rico Carr on 02-23-2023 Estimated GFR (CKD-EPI) > 60.0 mL/Min [facility] Creatinine Clearance (Chem 97.63 [facility] Nucleated erythrocytes [Pres ence] in Blood by Automated countOrdered By: Rcio Carr on 02-23-2023 Nucleated RBC Auto Ql (Bld) 0.1 /100{WBC} 0-0.5 [facility] Platelet mean volume Auto (B ld) [Entitic vol]Ordered By: Rico Carr on 02-23-2023 Platelet mean volume (Bld) [Entitic vol] 8.6 fL 6.6-10.1 [facility] Platelets Auto (Bld) [#/Vol] Ordered By: Rico Carr on 02-23-2023 Platelets (Bld) [#/Vol] 363 10*3/uL 150-450 [facility] Potassium [Moles/volume] in Serum or PlasmaOrdered By: Rico Carr on 02-23-2023 Potassium [Moles/Vol] 3.8 mmol/L 3.5-5.1 [facility] Protein [Mass/volume] in Ser um or PlasmaOrdered By: Rico Carr on 02-23-2023 Protein [Mass/Vol] 7.0 g/dL 6.4-8.9 [facility] RBC Auto (Bld) [#/Vol]Ordere d By: Rico Carr on 02-23-2023 RBC (Bld) [#/Vol] 4.61 10*6/uL 3.90-5.60 [facility] Serum or plasma albumin/glob ulin mass ratioOrdered By: Rico Carr on 02-23-2023 Albumin/Globulin [Mass ratio] 1.1 {ratio} [facility] Serum or plasma anion gap de terminationOrdered By: Rico Carr on 02-23-2023 Anion gap [Moles/Vol] 10.8 mmol/L 6.0-15.0 [facility] Sodium [Moles/volume] in Ser um or PlasmaOrdered By: Rico Carr on 02-23-2023 Sodium [Moles/Vol] 133 mmol/L 136-145 [facility] Urea nitrogen [Mass/volume] in Serum or PlasmaOrdered By: Rico Carr on 02-23-2023 Urea nitrogen [Mass/Vol] 13 mg/dL 12-17 [facility] WBC Auto (Bld) [#/Vol]Ordere d By: Rico Carr on 02-23-2023 WBC (Bld) [#/Vol] 13.0 10*3/uL 4.1-10.5 [facility] XR foot LT min 3V*on 023 XR foot LT min 3V* Normal [facility] US UNI ankle/arm indiceson 0 02-03-2023 US UNI ankle/arm indices Normal [facility] Blood Urea Nitrogenon 2022 Urea nitrogen [Mass/Vol] 10 mg/dL Normal 12-17 [facility] Comment on above: Performed By: #### B UN, CREAT ####[facility] [id number] [place] [address] [place] Creatinineon 01-13-2023 Creatinine [Mass/Vol] 0.74 mg/dL Normal 0.70-1.30 [facility] Comment on above: Performed By: #### B UN, CREAT ####[facility] [id number] [place] [address] [place] Creatinine Clr Calc Pharmacy 97.20 Normal [facility] Comment on above: Result Comment: PERF ORMED BY:[facility] [place] [place], [place] [phone] MEDICAL DIRECTORJOSEPH GARCIA M.D. Performed By: #### B UN, CREAT ####[facility] [id number] [place] [address] [place] GFR/1.73 sq M.predicted MDRD (S/P/Bld) [Vol rate/Area] mL/min/{1.73_m2} Normal [facility] Comment on above: Performed By: #### B UN, CREAT ####[facility] [place] [address] [place] Creatinine [Mass/volume] in Serum or PlasmaOrdered By: Dhruv Bautista on 01-13-2023 Creatinine [Mass/Vol] 0.74 mg/dL 0.70-1.30 [facility] No Panel InformationOrdered By: Dhruv Bautista on 01-13-2023 Estimated GFR (CKD-EPI) > 60.0 mL/Min [facility] Creatinine Clearance (Chem 97.20 [facility] Urea nitrogen [Mass/volume] in Serum or PlasmaOrdered By: Dhruv Bautista on 01-13-2023 Urea nitrogen [Mass/Vol] 10 mg/dL 7 [facility] A1C HEMOGLOBINon 07-24-2022 HbA1c (Bld) [Mass fraction] 9.0 % [employer] Other Creatinine [Mass/volume] in UrineOrdered By: Louise Sotelo on 07-24-2022 Creatinine (U) [Mass/Vol] 155.9 mg/dL [facility] Comment on above: No reference range e stablished Glucose - FINGER STICKon Glucose [Mass/Vol] 162 mg/dL [employer] Other HbA1c (Bld) [Mass fraction]o n 07-24-2022 A1C HEMOGLOBIN [employer] Other Microalbumin [Mass/volume] i n UrineOrdered By: Louise Sotelo on 07-24-2022 Albumin DL <= 20 mg/L (U) [Mass/Vol] 3.5 mg/dL 0.0-1.8 [facility] Urine microalbumin/creatinin e mass ratioOrdered By: Louise Sotelo on 07-24-2022 Albumin/Creatinine DL <= 20 mg/L (U) [Mass ratio] 22.0 mg/g 0.0-30.0 [facility] Comment on above: 30-300 mg/g indicate s an increased risk for diabetic nephropathy. Greater than 300 mg/g is consistent with clinical nephropathy. (Am. J. Kidney Disease 1995, 25:107) POINT OF CARE GLUCOSEon 06-27 Glucose [Mass/Vol] 156 mg/dL Critically high 74-[address] [facility] Comment on above: Performed By: #### P OCGLUC #### [facility] [address] [place] [address] Dr. Daniel Sosa A1C HEMOGLOBINon 02-06-2022 HbA1c (Bld) [Mass fraction] 8.5 % [employer] Other Glucose - FINGER STICKon Glucose [Mass/Vol] 211 mg/dL [employer] Other HbA1c (Bld) [Mass fraction]o n 02-06-2022 A1C HEMOGLOBIN [employer] Other A1C HEMOGLOBINon 08-23-2021 HbA1c (Bld) [Mass fraction] 11 % [employer] Other Glucose - FINGER STICKon Glucose [Mass/Vol] 266 mg/dL [employer] Other HbA1c (Bld) [Mass fraction]o n 08-23-2021 A1C HEMOGLOBIN [employer] Other Glucose - FINGER STICKon Glucose [Mass/Vol] 271 mg/dL [employer] Other A1C HEMOGLOBINon 02-22-2021 HbA1c (Bld) [Mass fraction] 11.4 % [employer] Other Glucose - FINGER STICKon Glucose [Mass/Vol] 282 mg/dL [facility] [employer] Other HbA1c (Bld) [Mass fraction]o n 02-22-2021 A1C HEMOGLOBIN [facility] [employer] Other Albumin [Mass/volume] in Ser um or Plasmaon 12-29-2019 Albumin [Mass/Vol] 3.8 g/dL 3.2-5.5 [facility] Alkaline phosphatase [Enzyma tic activity/volume] in Serum or Plasmaon 12-29-2019 ALP [Catalytic activity/Vol] 87 U/L 32-92 [facility] Aspartate aminotransferase [ Enzymatic activity/volume] in Serum or Plasmaon 12-29-2019 AST [Catalytic activity/Vol] 20 U/L 10-42 [facility] Bilirubin.total [Mass/volume ] in Serum or Plasmaon 12-29-2019 Bilirubin [Mass/Vol] 0.6 mg/dL 0.3-1.2 [facility] Calcium [Mass/volume] in Ser um or Plasmaon 12-29-2019 Calcium [Mass/Vol] 9.5 mg/dL 8.2-10.2 [facility] Carbon dioxide, total [Moles /volume] in Serum or Plasmaon 12-29-2019 CO2 [Moles/Vol] 23.8 mmol/L 22.0-30.0 [facility] Chloride [Moles/volume] in S rene or Plasmaon 12-29-2019 Chloride [Moles/Vol] 95 mmol/L 95-114 [facility] Cholesterol [Mass/volume] in Serum or Plasmaon 12-29-2019 Cholesterol [Mass/Vol] 235 mg/dL 140-200 [facility] Comment on above: Chol less than 200 m g/dl low riskChol 201-239 mg/dl borderline riskChol 240 mg/dl and greater high risk Cholesterol in LDL Calc [Mas s/Vol]on 12-29-2019 Cholesterol in LDL [Mass/Vol] TNP [facility] Comment on above: Test not performed Cholesterol in LDL [Mass/vol ume] in Serum or Plasmaon 12-29-2019 Cholesterol in LDL [Mass/Vol] 126 mg/dL 0-100 [facility] Comment on above: LDL ATP III CLASSIFI CATIONLDL less than 100 mg/dL OptimalLDL 100-129 mg/dL Near or above optimalLDL 130-159 mg/dL Borderline highLDL 160-189 mg/dL HighLDL greater than 189 mg/dL Very high Cholesterol in VLDL Calc [Ma ss/Vol]on 12-29-2019 Cholesterol in VLDL [Mass/Vol] TNP [facility] Comment on above: Test not performed Creatinine and Glomerular fi ltration rate.predicted panel (S/P/Bld)on 12-29-2019 Creatinine [Mass/Vol] 0.72 mg/dL 0.64-1.27 [facility] Estimated glomerular filtrat ion rate (GFR) non- Americanon 12-29-2019 GFR/1.73 sq M.predicted among non-blacks MDRD (S/P/Bld) [Vol rate/Area] mL/min/{1.73_m2} [facility] Globulin Calc (S) [Mass/Vol] on 12-29-2019 Globulin (S) [Mass/Vol] 3.1 g/dL [facility] [facility] Glucose [Mass/volume] in Ser um or Plasmaon 12-29-2019 Glucose [Mass/Vol] 213 mg/dL 70-100 [facility] Comment on above: ADA recommended refe rence rangeRandom Glucose Reference Range is dependent on time and content of last meal. Glucose of more than 200 mg/dL in a nonstressed, ambulatory subject supports the diagnosis of Diabetes Mellitus. Laboratory - Chemistry and C hemistry - challengeon 12-29-2019 GFR/1.73 sq M.predicted MDRD (S/P/Bld) [Vol rate/Area] mL/min/{1.73_m2} [facility] Comment on above: GFR estimated refere nce range: According to KDOQI guidelines, <60 ml/min/1.73m2 is sufficient to diagnose a patient with chronic kidney disease. No Panel Informationon 12-28 25-Hydroxy Vitamin D Total 21.4 ng/mL 30-100 [facility] Comment on above: VITAMIN D STATUS 25( [place])VITAMIN D RANGE (ng/mL) Deficient <20 Insufficient 20 to <30Sufficient 30 to 100Reference: Lily Springer [place], [place] RENAE, et al. Evaluation,treatment, and prevention of vitamin D deficiency; an Endocrine Society clinical practice guideline. JCEM. 2010; 96(7):1911-30. Pharmacy Creatinine Clearance (Chem N/A [facility] Potassium [Moles/volume] in Serum or Plasmaon 12-29-2019 Potassium [Moles/Vol] 3.9 mmol/L 3.5-5.1 [facility] Protein [Mass/volume] in Ser um or Plasmaon 12-29-2019 Protein [Mass/Vol] 6.9 g/dL 6.1-7.9 [facility] Serum or plasma alanine matias otransferase measurement without P-5'-P (enzymatic activion 12-29-2019 ALT No additional P-5'-P [Catalytic activity/Vol] 15 U/L 10-60 [facility] Serum or plasma albumin/glob ulin mass ratioon 12-29-2019 Albumin/Globulin [Mass ratio] 1.2 {ratio} [facility] Serum or plasma high density lipoprotein (HDL) cholesterol measurementon 12-29-2019 Cholesterol in HDL [Mass/Vol] 36 mg/dL 29-71 [facility] Comment on above: HDL CHOL ATP-III CLA SSIFICATION Cardiovascular RiskHDL > or equal to 60 mg/dL LOWHDL < 40 mg/dL HIGH Serum or plasma total choles terol/high density lipoprotein (HDL) cholesterol mass amy 12-29-2019 Cholesterol.total/Chol esterol in HDL [Mass ratio] 6.5 {ratio} <5.0 [facility] Sodium [Moles/volume] in Ser um or Plasmaon 12-29-2019 Sodium [Moles/Vol] 132 mmol/L 136-146 [facility] Triglyceride [Mass/volume] i n Serum or Plasmaon 12-29-2019 Triglyceride [Mass/Vol] 449 mg/dL 35-149 [facility] Comment on above: If the triglyceride result is greater than 400, LDLC and related calculations cannot be calculated and resulted.TRIG ATP III CLASSIFICATIONTRIG less than 150 mg/dL NormalTRIG 150-199 mg/dL Borderline highTRIG 200-500 mg/dL High TRIG greater than 500 mg/dL Very highStandard traceable to the [place] for Disease Conrtrol and Prevention (CDC) test method. Urea nitrogen [Mass/volume] in Serum or Plasmaon 12-29-2019 Urea nitrogen [Mass/Vol] 9 mg/dL 02-15 [facility] Vital Signs Date Time Vital Sign Value Performing Clinician Facility 07-18-2023 22:21-0500 Body temperature 97.8 [degF] DO John Ervin Work Phone: [facility] 07-18-2023 22:21-0500 Diastolic blood pressure 82 mm[Hg] DO John Ervin Work Phone: [facility] 07-18-2023 22:21-0500 Heart rate 92 /min DO John Ervin Work Phone: [facility] 07-18-2023 22:21-0500 Respiratory rate 18 /min DO John Ervin Work Phone: [facility] 07-18-2023 22:21-0500 SaO2% (BldA) [Mass fraction] 99 % DO John Ervin Work Phone: [facility] 07-18-2023 22:21-0500 Systolic blood pressure 154 mm[Hg] DO John Ervin Work Phone: [facility] 07-18-2023 12:55-0500 Inhaled oxygen flow rate 6 L/min DO John Ervin Work Phone: [facility] 07-18-2023 11:21-0500 Body mass index (BMI) [Ratio] 32.8 kg/m2 DO John Ervin Work Phone: [facility] 07-18-2023 10:45-0500 Body height 172.72 cm DO John Ervin Work Phone: [facility] 07-18-2023 09:44-0500 Body weight 98 kg DO John Ervin Work Phone: [facility] 07-10-2023 22:48-0500 Body height 172.72 cm DO John Ervin Work Phone: [facility] 07-10-2023 22:48-0500 Body temperature 97.8 [degF] DO John Ervin Work Phone: [facility] 07-10-2023 22:48-0500 Body weight 92.2 kg DO John Ervin Work Phone: [facility] 07-10-2023 22:48-0500 Diastolic blood pressure 82 mm[Hg] DO John Ervin Work Phone: [facility] 07-10-2023 22:48-0500 Heart rate 82 /min DO John Ervin Work Phone: [facility] 07-10-2023 22:48-0500 Respiratory rate 16 /min DO John Ervin Work Phone: [facility] 07-10-2023 22:48-0500 SaO2% (BldA) [Mass fraction] 100 % DO John Ervin Work Phone: [facility] 07-10-2023 22:48-0500 Systolic blood pressure 144 mm[Hg] DO John Ervin Work Phone: [facility] 07-10-2023 15:53-0500 Body height 172.7 cm Rohan Han DPM Work Phone: [facility] 07-10-2023 15:53-0500 Body mass index (BMI) [Ratio] 35.12 kg/m2 Rohan Han DPM Work Phone: [facility] 07-10-2023 15:53-0500 Body weight 104.78 kg Rohan Han DPM Work Phone: [facility] 07-10-2023 15:53-0500 Diastolic blood pressure 81 mm[Hg] Rohan Han DPM Work Phone: [facility] 07-10-2023 15:53-0500 Heart rate 79 /min Rohan Han DPM Work Phone: [facility] 07-10-2023 15:53-0500 Systolic blood pressure 125 mm[Hg] Rohan Han DPM Work Phone: [facility] 06-26-2023 16:15-0500 Body height 172.7 cm Rohan Han DPM Work Phone: [facility] 06-26-2023 16:15-0500 Body mass index (BMI) [Ratio] 35.12 kg/m2 Rohan Han DPM Work Phone: [facility] 06-26-2023 16:15-0500 Body weight 104.78 kg Rohan Han DPM Work Phone: [facility] 06-26-2023 16:15-0500 Diastolic blood pressure 80 mm[Hg] Rohan Han DPM Work Phone: [facility] 06-26-2023 16:15-0500 Heart rate 79 /min Rohan Han DPM Work Phone: [facility] 06-26-2023 16:15-0500 Systolic blood pressure 133 mm[Hg] Rohan Han DPM Work Phone: [facility] 06-26-2023 13:15-0500 Body height 172.72 cm Tondra Mapus Other [facility] 06-26-2023 13:15-0500 Body mass index (BMI) [Ratio] 30.41 kg/m2 Tondra Mapus Other [employer] [facility] [employer] Other 06-26-2023 13:15-0500 Body weight 90.72 kg Tondra Mapus Other [employer] [facility] [employer] Other 06-26-2023 13:15-0500 Body weight 90.71 kg DO John Ervin Work Phone: [facility] 06-26-2023 13:15-0500 Diastolic blood pressure 81 mm[Hg] Tondra Mapus Other [facility] 06-26-2023 13:15-0500 Respiratory rate 18 /min Louise Sotelo Other [facility] [employer] Other 06-26-2023 13:15-0500 SaO2% (BldA) [Mass fraction] 99 % Louise Sotelo Other [employer] Other 06-26-2023 13:15-0500 Systolic blood pressure 130 mm[Hg] Louise Sotelo Other [facility] 04-30-2023 15:00-0500 Body height 172.72 cm Michael Ramírez Other [facility] 04-30-2023 15:00-0500 Body mass index (BMI) [Ratio] 30.71 kg/m2 Michael Ramírez Other [facility] [employer] Other 04-30-2023 15:00-0500 Body temperature 97 [degF] Michael Ramírez Other [facility] [employer] Other 04-30-2023 15:00-0500 Body weight 91.63 kg Michael Ramírez Other [employer] [facility] [employer] Other 04-30-2023 15:00-0500 Body weight 91.62 kg John Ervin Work Phone: [facility] 04-30-2023 15:00-0500 Diastolic blood pressure 94 mm[Hg] Michael Ramírez Other [facility] 04-30-2023 15:00-0500 Systolic blood pressure 161 mm[Hg] Michael Ramírez Other [facility] 04-10-2023 14:30-0500 Body height 172.72 cm Michael Ramírez Other [facility] [employer] Other 04-10-2023 14:30-0500 Body mass index (BMI) [Ratio] 30.71 kg/m2 Michael Ramírez Other [employer] Other 04-10-2023 14:30-0500 Body temperature 98.3 [degF] Michael Ramírez Other [employer] Other 04-10-2023 14:30-0500 Body weight 91.63 kg Michael Ramírez Other [employer] Other 04-10-2023 14:30-0500 Diastolic blood pressure 71 mm[Hg] Michael Ramírez Other [employer] Other 04-10-2023 14:30-0500 Systolic blood pressure 127 mm[Hg] Michael Ramírez Other [employer] Other 03-20-2023 13:00-0400 Body height 172.72 cm Tondra Mapus Other [employer] Other 03-20-2023 13:00-0400 Body mass index (BMI) [Ratio] 30.7 kg/m2 Tondra Mapus Other [employer] Other 03-20-2023 13:00-0400 Body weight 91.58 kg Tondra Mapus Other [employer] Other 03-20-2023 13:00-0400 Diastolic blood pressure 78 mm[Hg] Tondra Mapus Other [employer] Other 03-20-2023 13:00-0400 Respiratory rate 18 /min Tondra Mapus Other [employer] Other 03-20-2023 13:00-0400 SaO2% (BldA) [Mass fraction] 98 % Louise Sotelo Other [facility] [employer] Other 03-20-2023 13:00-0400 Systolic blood pressure 138 mm[Hg] Louise Beckfordus Other [facility] [employer] Other 03-04-2023 11:41-0400 Body temperature 97.7 [degF] MD Tejas Stevens Work Phone: [facility] 03-04-2023 11:41-0400 Diastolic blood pressure 84 mm[Hg] MD Tejas Stevens Work Phone: [facility] 03-04-2023 11:41-0400 Heart rate 62 /min MD Tejas Stevens Work Phone: [facility] 03-04-2023 11:41-0400 Respiratory rate 12 /min MD Tejas Stevens Work Phone: [facility] 03-04-2023 11:41-0400 SaO2% (BldA) [Mass fraction] 94 % MD Tejas Stevens Work Phone: [facility] 03-04-2023 11:41-0400 Systolic blood pressure 158 mm[Hg] MD Tejas Stevens Work Phone: [facility] 03-04-2023 06:31-0400 Body weight 93.2 kg MD Tejas Stevens Work Phone: [facility] 03-03-2023 13:36-0400 Body height 172.72 cm MD Tejas Stevens Work Phone: [facility] 02-26-2023 10:56-0400 Body mass index (BMI) [Ratio] 30.4 kg/m2 MD Tejas Stevens Work Phone: [facility] 02-23-2023 16:21-0400 Diastolic blood pressure 78 mm[Hg] MD Tejas Stevens Work Phone: [facility] 02-23-2023 16:21-0400 Heart rate 70 /min MD Tejas Stevens Work Phone: [facility] 02-23-2023 16:21-0400 Respiratory rate 16 /min MD Tejas Stevens Work Phone: [facility] 02-23-2023 16:21-0400 SaO2% (BldA) [Mass fraction] 96 % MD Tejas Stevens Work Phone: [facility] 02-23-2023 16:21-0400 Systolic blood pressure 163 mm[Hg] MD Tejas Stevens Work Phone: [facility] 02-23-2023 12:39-0400 Body temperature 97.4 [degF] MD Tejas Stevens Work Phone: [facility] 02-23-2023 11:43-0400 Body height 172.72 cm MD Tejas Stevens Work Phone: [facility] 02-23-2023 11:43-0400 Body weight 101.15 kg MD Tejas Stevens Work Phone: [facility] 02-03-2023 10:30-0400 Body height 172.72 cm Pamela Berry Other [employer] Other 02-03-2023 10:30-0400 Body mass index (BMI) [Ratio] 33.6 kg/m2 Pamela Kristi Other [employer] Other 02-03-2023 10:30-0400 Body temperature 96.5 [degF] Pamela Berry Other [employer] Other 02-03-2023 10:30-0400 Body weight 100.25 kg Pamela Berry Other [employer] Other 02-03-2023 10:30-0400 Diastolic blood pressure 78 mm[Hg] Pamela Berry Other [employer] Other 02-03-2023 10:30-0400 SaO2% (BldA) [Mass fraction] 96 % Pamela Berry Other [employer] Other 02-03-2023 10:30-0400 Systolic blood pressure 118 mm[Hg] Pamela Berry Other [employer] Other 01-13-2023 18:40-0400 Diastolic blood pressure 91 mm[Hg] MD Tejas Stevens Work Phone: [facility] 01-13-2023 18:40-0400 Heart rate 84 /min MD Tejas Stevens Work Phone: [facility] 01-13-2023 18:40-0400 Respiratory rate 16 /min MD Tejas Stevens Work Phone: [facility] 01-13-2023 18:40-0400 SaO2% (BldA) [Mass fraction] 97 % MD Tejas Stevens Work Phone: [facility] 01-13-2023 18:40-0400 Systolic blood pressure 146 mm[Hg] MD Tejas Stevens Work Phone: [facility] 01-13-2023 13:22-0400 Body height 172.72 cm MD Tejas Stevens Work Phone: [facility] 01-13-2023 13:22-0400 Body weight 100.24 kg MD Tejas Setvens Work Phone: [facility] 01-10-2023 10:00-0400 Body height 172.72 cm Dhruv Bautista Other [employer] Other 01-10-2023 10:00-0400 Body mass index (BMI) [Ratio] 33.6 kg/m2 Dhruv Bautista Other [employer] Other 01-10-2023 10:00-0400 Body temperature 97.3 [degF] Dhruv Bautista Other [employer] Other 01-10-2023 10:00-0400 Body weight 100.25 kg Dhruv Bautista Other [employer] Other 01-10-2023 10:00-0400 Diastolic blood pressure 74 mm[Hg] Dhruv Richardsonjonathan Other [employer] Other 01-10-2023 10:00-0400 SaO2% (BldA) [Mass fraction] 96 % Dhruv Lindsaynilay Other [employer] Other 01-10-2023 10:00-0400 Systolic blood pressure 118 mm[Hg] Dhruv Richardsonrer Other [employer] Other 07-24-2022 14:45-0500 Body height 172.72 cm Tondra Mapus Other [employer] Other 07-24-2022 14:45-0500 Body mass index (BMI) [Ratio] 34.63 kg/m2 Tondra Mapus Other [employer] Other 07-24-2022 14:45-0500 Body weight 103.33 kg Tondra Mapus Other [employer] Other 07-24-2022 14:45-0500 Diastolic blood pressure 69 mm[Hg] Tondra Mapus Other [employer] Other 07-24-2022 14:45-0500 Respiratory rate 18 /min Tondra Mapus Other [employer] Other 07-24-2022 14:45-0500 SaO2% (BldA) [Mass fraction] 96 % Tondra Mapus Other [employer] Other 07-24-2022 14:45-0500 Systolic blood pressure 108 mm[Hg] Tondra Mapus Other [employer] Other 02-06-2022 15:15-0400 Body height 172.72 cm Tondra Mapus Other [employer] Other 02-06-2022 15:15-0400 Body mass index (BMI) [Ratio] 35.58 kg/m2 Tondra Mapus Other [employer] Other 02-06-2022 15:15-0400 Body weight 106.14 kg Tondra Mapus Other [employer] Other 02-06-2022 15:15-0400 Diastolic blood pressure 103 mm[Hg] Tondra Mapus Other [employer] Other 02-06-2022 15:15-0400 Respiratory rate 20 /min Tondra Mapus Other [employer] Other 02-06-2022 15:15-0400 SaO2% (BldA) [Mass fraction] 98 % Tondra Mapus Other [employer] Other 02-06-2022 15:15-0400 Systolic blood pressure 173 mm[Hg] Tondra Mapus Other [employer] Other 08-23-2021 14:00-0400 Body height 172.72 cm Tondra Mapus Other [employer] Other 08-23-2021 14:00-0400 Body mass index (BMI) [Ratio] 36.34 kg/m2 Tondra Mapus Other [employer] Other 08-23-2021 14:00-0400 Body weight 108.41 kg Tondra Mapus Other [employer] Other 08-23-2021 14:00-0400 Diastolic blood pressure 106 mm[Hg] Tondra Mapus Other [employer] Other 08-23-2021 14:00-0400 Respiratory rate 20 /min Tondra Mapus Other [employer] Other 08-23-2021 14:00-0400 SaO2% (BldA) [Mass fraction] 97 % Tondra Mapus Other [employer] Other 08-23-2021 14:00-0400 Systolic blood pressure 169 mm[Hg] Tondra Mapus Other [employer] Other 04-03-2021 15:00-0500 Body height 172.72 cm Tondra Mapus Other [employer] Other 04-03-2021 15:00-0500 Body mass index (BMI) [Ratio] 31.62 kg/m2 Tondra Mapus Other [employer] Other 04-03-2021 15:00-0500 Body weight 94.35 kg Tondra Mapus Other [employer] Other 04-03-2021 15:00-0500 Diastolic blood pressure 90 mm[Hg] Tondra Mapus Other [employer] Other 04-03-2021 15:00-0500 Respiratory rate 20 /min Tondra Mapus Other [employer] Other 04-03-2021 15:00-0500 SaO2% (BldA) [Mass fraction] 98 % Tondra Mapus Other [employer] Other 04-03-2021 15:00-0500 Systolic blood pressure 156 mm[Hg] Tondra Mapus Other [employer] Other 02-22-2021 12:00-0400 Body height 172.72 cm Tondra Mapus Other [employer] Other 02-22-2021 12:00-0400 Body mass index (BMI) [Ratio] 30.35 kg/m2 Tondra Mapus Other [employer] Other 02-22-2021 12:00-0400 Body weight 90.54 kg Tondra Mapus Other [employer] Other 02-22-2021 12:00-0400 Diastolic blood pressure 93 mm[Hg] Tondra Mapus Other [employer] Other 09-30-2021 12:00-0400 Respiratory rate 18 /min Tondra Mapus Other [employer] Other 02-22-2021 12:00-0400 SaO2% (BldA) [Mass fraction] 99 % Tondra Mapus Other [employer] Other 02-22-2021 12:00-0400 Systolic blood pressure 169 mm[Hg] Tondra Mapus Other [employer] [facility] [employer] Other Encounters Encounter Date Encounter Type Care Provider Facility Start: 07-18-2023 End: 07-18-2023 ambulatory Tejas Naderer Facility:[facility] Start: 07-18-2023 End: 07-18-2023 ambulatory DO John Carrington Madavid Work Phone: [facility] Work Phone: Start: 07-18-2023 End: 07-18-2023 Departed Referred DO John Ervin Work Phone: [facility]-Dialysis Work Phone: Start: 07-15-2023 Non-patient / Non-visit DO Kane n Mauric Work Phone: [facility] Work Phone: Start: 07-14-2023 Non-patient / Non-visit DO Kane n Mauric Work Phone: [facility] Work Phone: Start: 07-13-2023 Non-patient / Non-visit DO Kane n Mauric Work Phone: [facility] Work Phone: Start: 07-12-2023 Non-patient / Non-visit DO Kane n Mauric Work Phone: [facility] Work Phone: Start: 07-11-2023 Non-patient / Non-visit DO Kane Ervin Work Phone: [facility] Vascular Surgery Work Phone: Start: 07-10-2023 End: 07-26-2023 Evaluation and management of inpatient Michael Ramírez Facility:[facility] Start: 07-10-2023 Non-patient / Non-visit DO Kane Ervin Work Phone: [facility] Work Phone: Start: 07-10-2023 Evaluation and management of inpatient DO John Ervin Work Phone: [facility] Work Phone: Start: 07-10-2023 End: 07-10-2023 ambulatory ROHAN HAN Not Available Start: 07-10-2023 End: 07-10-2023 Postop follow up visit related to original px Rohan Han DPM Work Phone: [facility] Comment on above: Foot ulcer, left, wi th fat layer exposed (CMS/HCC) (Primary Dx); 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); PVD (peripheral vascular disease) (CMS/HCC); Foot ulcer, left, with necrosis of muscle (HCC) (CMS/HCC) Start: 07-10-2023 Chart abstracting Rohan catalan DPM Work Phone: [facility] Start: 07-02-2023 Chart abstracting Rohan catalan DPM Work Phone: [facility] Start: 06-26-2023 End: 06-26-2023 Patient encounter procedure Rohan Han DPM Work Phone: [facility] Comment on above: Foot ulcer, left, wi th fat layer exposed (CMS/HCC) (Primary Dx); 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); PVD (peripheral vascular disease) (CMS/HCC); Onychomycosis; Toe pain, left; Toe pain, right Start: 06-26-2023 (DM) Diabetes Louise Sotelo [facility] Start: 06-26-2023 End: 06-27-2023 ambulatory DO John Ervin Work Phone: [facility] [employer] Other Start: 06-26-2023 End: 06-26-2023 Discharged Recurring DO John Ervin Work Phone: [facility] Work Phone: Start: 06-26-2023 End: 06-26-2023 Patient encounter procedure DO John Ervin Work Phone: [facility]- Start: 06-19-2023 End: 06-19-2023 ambulatory ROHAN A BROWN Not Available Start: 06-12-2023 End: 06-12-2023 ambulatory ROHAN A BROWN Not Available Start: 05-29-2023 End: 05-29-2023 ambulatory ROHAN A BROWN Not Available Start: 05-22-2023 End: 05-22-2023 ambulatory ROHAN A BROWN Not Available Start: 05-15-2023 End: 05-15-2023 ambulatory ROHAN A BROWN Not Available Start: 05-12-2023 End: 05-12-2023 ambulatory [facility] Start: 05-01-2023 End: 05-01-2023 ambulatory ROHAN A BROWN Not Available Start: 04-30-2023 End: 04-30-2023 ambulatory Michael Ramírez Other [facility] [employer] Other Start: 04-30-2023 Office outpatient vi sit 25 minutes Michael Ramírez [facility] Start: 04-30-2023 End: 04-30-2023 Patient encounter procedure DO John Ervin Work Phone: [facility] Work Phone: Start: 04-22-2023 End: 04-22-2023 ambulatory ROHAN A BROWN Not Available Start: 04-16-2023 End: 04-16-2023 ambulatory ROHAN A BROWN Not Available Start: 04-10-2023 End: 04-10-2023 ambulatory Michael Ramírez Other [employer] Other Start: 04-10-2023 Office outpatient vi sit 25 minutes Michael Ramírez [facility] Start: 04-09-2023 End: 04-09-2023 ambulatory ROHAN HAN Not Available Start: 03-31-2023 End: 03-31-2023 ambulatory MD Tejas Stevens Work Phone: [facility] Work Phone: Start: 03-31-2023 End: 03-31-2023 Patient encounter procedure MD Tejas Stevens Work Phone: [facility]-Lab [facility] Work Phone: Start: 03-25-2023 End: 03-25-2023 ambulatory Rohan Han Facility:[facility] Start: 03-25-2023 End: 03-25-2023 ambulatory MD Tejas Stevens Work Phone: [facility] Work Phone: Start: 03-25-2023 End: 03-25-2023 Patient encounter procedure MD Tejas Stevens Work Phone: [facility] [address] Work Phone: Start: 03-24-2023 End: 03-24-2023 ambulatory MD Tejas Stevens Work Phone: [facility] Work Phone: Start: 03-24-2023 End: 03-24-2023 Patient encounter procedure MD Tejas Stevens Work Phone: [facility] Work Phone: Start: 03-20-2023 Registered Recurring MD Tejas jerome Work Phone: [facility] Work Phone: Start: 03-20-2023 (PUMP/CGM) Pump / Sensor Tondra Mapus [facility] Start: 03-20-2023 End: 03-20-2023 ambulatory Tondra Mapus Other [employer] Other Start: 03-17-2023 End: 03-17-2023 ambulatory Michael Ramírez [facility] [employer] Other Start: 03-17-2023 Telephone encounter Tondra Mapus [facility] Start: 03-17-2023 End: 03-17-2023 Patient encounter procedure MD Tejas Stevens Work Phone: [facility] Work Phone: Start: 03-10-2023 Telephone encounter Corrine Terrell RN [facility] Start: 03-10-2023 End: 03-10-2023 ambulatory MD Tejas Stevens Work Phone: [facility] Work Phone: Start: 03-10-2023 End: 03-10-2023 Patient encounter procedure MD Tejas Stevens Work Phone: [facility] Work Phone: Start: 02-24-2023 End: 02-24-2023 ambulatory Tondra Mapus Other [employer] Other Start: 02-24-2023 Telephone encounter Tondra Mapus [facility] Start: 02-23-2023 End: 03-04-2023 Evaluation and management of inpatient Michael Ramírez Facility:[facility] Start: 02-23-2023 End: 03-04-2023 Evaluation and management of inpatient MD Tejas Stevens Work Phone: [facility] Work Phone: Start: 02-03-2023 End: 02-03-2023 Patient encounter procedure Pamela Berry [facility] Start: 02-03-2023 End: 02-03-2023 ambulatory MD Tejas Stevens Work Phone: [employer] Other Start: 01-20-2023 End: 01-20-2023 ambulatory Tondra Mapus Other [employer] Other Start: 01-20-2023 Telephone encounter Tondra Mapus [facility] Start: 01-13-2023 End: 01-13-2023 ambulatory Tejas Stevens Facility:[facility] Start: 01-13-2023 End: 01-13-2023 Admission to same day surgery center MD Tejas Stevens Work Phone: [facility] Work Phone: Start: 01-10-2023 End: 01-10-2023 ambulatory Dhruv Bautista Other [facility] Other Start: 01-10-2023 FQ visit new patient Dhruv Dennison er [facility] Start: 12-19-2022 End: 12-19-2022 ambulatory Tondra Mapus Other [facility] Other Start: 12-19-2022 Telephone encounter Tondra Mapus [facility] Start: 12-02-2022 End: 12-02-2022 ambulatory Tondra Mapus Other [facility] Other Start: 12-02-2022 Telephone encounter Tondra Mapus [facility] Start: 11-06-2022 End: 11-06-2022 ambulatory Tondra Mapus Other [facility] Other Start: 11-06-2022 Telephone encounter Tondra Mapus [facility] Start: 07-24-2022 (DM) Diabetes Tondra Mapus [facility] Start: 07-24-2022 End: 07-24-2022 ambulatory Tondra Mapus Other [facility] Other Start: 07-24-2022 Telephone encounter Tondra Mapus [facility] Start: 07-23-2022 End: 07-23-2022 ambulatory GARIMA DIDIERGasper . Facility:[facility]1 Start: 07-16-[address] TEJAS STEVENS [facility] ity:H1 Start: 03-27-2022 End: 03-27-2022 ambulatory Tondra Mapus Other [facility] Other Start: 03-27-2022 Telephone encounter Tondra Mapus [facility] Start: 02-06-2022 (PUMP/CGM) Pump / Sensor Tondra Mapus [facility] Start: 02-06-2022 End: 02-06-2022 ambulatory Tondra Mapus Other [facility] Other Start: 12-04-2021 End: 12-04-2021 ambulatory Tondra Mapus Other [facility] Other Start: 12-04-2021 Telephone encounter Tondra Mapus [facility] Start: 10-11-2021 End: 10-11-2021 ambulatory Tondra Mapus Other [facility] Other Start: 10-11-2021 Telephone encounter Tondra Mapus [facility] Start: 09-27-2021 End: 09-27-2021 ambulatory Tondra Mapus Other [facility] Other Start: 09-27-2021 Telephone encounter Tondra Mapus [facility] Start: 08-23-2021 (PUMP/CGM) Pump / Sensor Tondra Mapus [facility] Start: 08-23-2021 End: 08-23-2021 ambulatory Tondra Mapus Other [facility] Other Start: 06-22-2021 End: 06-22-2021 ambulatory Tondra Mapus Other [facility] Other Start: 06-22-2021 Telephone encounter Tondra Mapus [facility] Start: 04-03-2021 (DM) Diabetes Tondra Mapus [facility] Start: 04-03-2021 End: 04-03-2021 ambulatory Tondra Mapus Other [facility] Other Start: 03-30-2021 End: 03-30-2021 ambulatory Tondra Mapus Other [facility] Other Start: 03-30-2021 Telephone encounter Tondra Mapus [facility] Start: 03-23-2021 Telephone encounter Tondra Mapus [facility] Start: 03-20-2021 Telephone encounter Tondra Mapus [facility] Start: 02-22-2021 (DM) Diabetes Tondra Mapus [facility] Procedures Date Procedure Procedure Detail Performing Clinician Start: 07-18-2023 X-ray of left foot DO Stew Ervin Work Phone: Start: 07-18-2023 Amputation of toe DO Ana María Ervin Work Phone: Start: 07-17-2023 Antibody screen Desiree Comment on above: Order Comment: Trans fuse now? Y Number of units to transfuse now? 1 Transfuse now? Y Number of units to transfuse now? 2 Result Comment: PERF ORMED BY:[facility] BRENDA BEGUM [id number] MEDICAL DIRECTORJOSEPH GARCIA M.D. Start: 07-17-2023 Plain chest X-ray DO Ana María Ervin Work Phone: Start: 07-17-2023 Fluoroscopic guidance D O oJhn Ervin Work Phone: Start: 07-14-2023 Urine culture DO John murphy Work Phone: Start: 07-13-2023 Ultrasonography of b ilateral kidneys DO John Ervin Work Phone: Start: 07-11-2023 MRI of left foot DO Kane Ervin Work Phone: Start: 07-11-2023 X-ray of left foot DO J ohn Arcadio Work Phone: Start: 07-11-2023 Amputation of toe DO Ana María hn Arcadio Work Phone: Start: 07-11-2023 Investigation of tra nsfusion reaction DO John Ervin Work Phone: Start: 07-11-2023 Pulse volume recorde r pneumoplethysmography DO John Ervin Work Phone: Start: 07-10-2023 X-ray of left foot DO Stew Ervin Work Phone: Start: 07-10-2023 Aerobic microbial culture DO John Ervin Work Phone: Start: 07-10-2023 Blood culture for ba cteria, including anaerobic screen DO John Ervin Work Phone: Start: 03-25-2023 MRI of left foot MD Indu Stevens Work Phone: Start: 03-04-2023 Insertion of periphe rally inserted central catheter MD Tejas Stevens Work Phone: Start: 02-26-2023 Aerobic microbial culture MD Tejas Stevens Work Phone: Start: 02-26-2023 Anaerobic microbial culture MD Tejas Stevens Work Phone: Start: 02-26-2023 Investigation of tra nsfusion reaction MD Tejas Stevens Work Phone: Start: 02-26-2023 X-ray of left foot MD Zeb Stevens Work Phone: Start: 02-26-2023 Debridement MD Tejas salmeron Work Phone: Start: 02-25-2023 MRI of left foot MD Indu Stevens Work Phone: Start: 02-23-2023 Blood culture for ba cteria, including anaerobic screen MD Tejas Stevens Work Phone: Start: 02-23-2023 X-ray of left foot MD Zeb Stevens Work Phone: Start: 01-13-2023 Lower limb angiography MD Tejas Stevens Work Phone: Plan of Treatment Date Care Activity Detail Author Start: 05-12-2024 Adult BMI Screening Adult BMI Screening [facility] Start: 05-12-2024 Tobacco Screening Tobacco Screening [facility] Start: 12-17-2023 End: 12-17-2023 Patient encounter procedure 12/17/2023 2:15 PM EDT Office Visit [facility] [address] [place] [address] [place] [address] [place] [address] Mara Vargas I, PA [address] [place] [address] [facility] Start: 07-19-2023 [facility] Start: 07-18-2023 [facility] Start: 07-17-2023 [facility] Start: 07-16-2023 Referral to vascular surgeon [facility] Start: 07-15-2023 Referral to fishing instructor [facility] Start: 07-14-2023 Referral to rehabilitation physician [facility] Start: 07-13-2023 [facility] Start: 07-13-2023 [facility] Start: 07-11-2023 [facility] Start: 07-11-2023 Referral to vascular surgeon [facility] Start: 07-11-2023 Pulse volume recorder pneumoplethysmography US arterial pvr rest LE [facility] Start: 07-11-2023 [facility] Start: 07-10-2023 Referral to infectious diseases physician [facility] Start: 07-10-2023 MRI of left foot MR foot LT wo con [facility] Start: 07-10-2023 Referral to ferry hand [facility] Start: 07-10-2023 Hospital admission [facility] Start: 07-10-2023 [facility] Start: 07-10-2023 End: 07-10-2023 Patient encounter procedure 07/10/2023 4:00 PM EST Office Visit [facility] [address] [facility] [address] [place] [id number] Rohan Han DPM [address] [address] [facility] Start: 07-10-2023 Bacteria identified in Blood by Culture [facility] Start: 07-10-2023 Superficial Wound Culture Superficial Wound Culture [facility] Start: 07-09-2023 End: 07-09-2023 Patient encounter procedure 07/09/2023 1:50 PM EST Office Visit [facility] [address] [place] [phone] Rohan Han DPM [address] [address] [facility] Start: 07-02-2023 End: 07-02-2023 Patient encounter procedure 07/02/2023 8:00 AM EST Procedure Visit [facility] Rohan Han DPM [address] [address] [facility] Start: 03-04-2023 [facility] Start: 02-23-2023 Referral to vascular surgeon [facility] Start: 02-23-2023 Referral to infectious diseases physician [facility] Start: 02-23-2023 Referral to ferry hand [facility] Start: 02-23-2023 Hospital admission [facility] Start: 02-23-2023 [facility] Start: 02-23-2023 Bacteria identified in Blood by Culture [facility] Start: 02-23-2023 Detachment at Left Foot, Partial 5th Ray, Open Approach Detachment at Left Foot, Partial 5th Ray, Open Approach [facility] Start: 02-23-2023 Insertion of Infusion Device into Superior Vena Cava, Percutaneous Approach Insertion of Infusion Device into Superior Vena Cava, Percutaneous Approach [facility] Start: 01-24-2023 Influenza vaccination [facility] Start: 01-13-2023 [facility] Start: 12-20-2016 Fall Risk Screening Fall Risk Screening [facility] Start: 12-20-1970 Administration of varicella zoster vaccine Zoster (Shingles) Vaccine (1 of 2) [facility] Start: 12-20-1970 DTaP,Tdap and Td Vaccines (1 - Tdap) DTaP,Tdap and Td Vaccines (1 - Tdap) [facility] Start: 12-20-1970 Urine screening for protein Diabetes: Urine Protein Screening [facility] Start: 12-20-1969 Adult BMI Follow Up Plan Adult BMI Follow Up Plan [facility] Start: 1963 Depression Screening Depression Screening [facility] Start: 12-20-1961 Glaucoma screening Diabetes: Retinopathy Screening [facility] Start: 12-20-1957 Pneumococcal Vaccine: 65+ Years (1 - PCV) Pneumococcal Vaccine: 65+ Years (1 - PCV) [facility] Start: 12-20-1957 Pneumococcal Vaccine: 65+ Years (1 of 2 - PCV) Pneumococcal Vaccine: 65+ Years (1 of 2 - PCV) [facility] Start: 1950 Hemoglobin A1c measurement Diabetes: Hemoglobin A1C [facility] Start: 1950 Medicare Annual Wellness (AWV) Medicare Annual Wellness (AWV) [facility] Start: 1950 Medicare Annual Wellness Visit Medicare Annual Wellness Visit [facility] Start: 1950 Screening for malignant neoplasm of colon [facility] Start: 1950 Tobacco Counseling Tobacco Counseling [facility] Anion gap measurement [facility] Bacteria identified in Unspecified specimen by Aerobe culture [facility] Basophils [#/volume] in Blood by Automated count [facility] Basophils/100 leukoc ytes in Blood by Automated count [facility] Eosinophils/100 leuk ocytes in Blood by Automated count [facility] Erythrocyte distribu tion width [Ratio] by Automated count [facility] Erythrocytes [#/volu me] in Blood [facility] Glucose measurement estimated from glycated hemoglobin [facility] Hematocrit [Volume F raction] of Blood [facility] Hemoglobin [Mass/vol ume] in Blood [facility] Leukocytes [#/volume ] corrected for nucleated erythrocytes in Blood by Automated coun [facility] Leukocytes [#/volume] in Blood [facility] Lymphocytes [#/volum e] in Blood by Automated count [facility] Lymphocytes/100 leuk ocytes in Blood by Automated count [facility] MCH [Entitic mass] b y Automated count [facility] MCHC [Mass/volume] b y Automated count [facility] MCV [Entitic volume] by Automated count [facility] Monocytes [#/volume] in Blood by Automated count [facility] Monocytes/100 leukoc ytes in Blood by Automated count [facility] Neutrophils [#/volum e] in Blood by Automated count [facility] Neutrophils/100 leuk ocytes in Blood by Automated count [facility] Nucleated erythrocyt es [Presence] in Blood by Automated count [facility] Patient Education Wound Infectio n Negative Pressure Wound Therapy [facility] Work Phone: Patient referral [facility] Work Phone: Platelet mean volume [Entitic volume] in Blood by Automated count [facility] Platelets [#/volume] in Blood [facility] Payers Date Payer Category Payer Medicare [id number] 2023 Unknown [employer] [id number] 2023-Present [address] [place] [address] [id number]. [id number] 2023 Medicare [id number] 2023 Unknown [id number] 2019 Medicare ANTH MEDICARE ANTH MEDICARE ADVANTAGE [id number] 2019-Present [phone] [address] [place] [address] [id number]. [id number] 2018 Self-pay [id number] 2018 Unknown [id number] 1959 Medicare [id number] [id number] 1951 Unknown [id number] 2.16.840.1.874252.3.579.2.593 1951 Unknown [id number] 2..840.1.314923.3.579.2.593 1951 Unknown [id number] 2.16.840.1.690910.3.579.2.1286 1951 Unknown [id number] 2.16.840.1.948035.3.579.2.1259 1951 Unknown [id number] 2.16.840.1.727045.3.579.2.1259 1951 Unknown [id number] 2.16.840.1.858194.3.579.2.1259 1951 Unknown [id number] 2.16.840.1.523306.3.579.2.1259 1951 Unknown [id number] 2.16.840.1.049365.3.579.2.1259 1951 Unknown [id number] 2.16.840.1.494687.3.579.2.1258 1951 Unknown [id number] 2.16.840.1.429502.3.579.2.1258 1951 Unknown [id number] 2.16.840.1.364429.3.579.2.1258 1951 Unknown [id number] 2.16.840.1.347089.3.579.2.1258 1951 Unknown [id number] 2.16.840.1.207478.3.579.2.1258 1951 Unknown [id number] 2.16.840.1.262656.3.579.2.1259 Unknown [facility] [id number] Unknown [id number] 2.16.840.1.211084.3.579.2.531 Unknown [id number] 2.16.840.1.636696.3.579.2.531 Unknown [id number] 2.16.840.1.537922.3.579.2.531 Unknown [id number] 2.16.840.1.833403.3.579.2.531 Unknown [id number] 2.16.840.1.449025.3.579.2.531 Unknown [id number] 2.16.840.1.298959.3.579.2.531 Unknown [id number] 2.16.840.1.153232.3.579.2.531 Unknown [id number] 2.16.840.1.711587.3.579.2.531 Unknown [id number] 2.16.840.1.381464.3.579.2.531 Unknown [id number] 2.16.840.1.301851.3.579.2.531 Unknown [id number] 2.16.840.1.123811.3.579.2.531 Social History Date Type Detail Facility Unknown if ever smoked [facility] Other Start: 05-12-2023 End: 07-10-2023 Sex Assigned At [facility] Start: 1950 Sex Assigned At Male F [facility] Start: 02-23-2023 Tobacco smoking status NVIS Smoker (finding) [facility] Start: 02-26-2023 End: 02-26-2023 Tobacco smoking status NVIS Current Light tobacco smoker [facility] Start: 06-06-2022 End: 02-13-2023 Tobacco smoking status [facility] Occasional tobacco smoker [facility] History of tobacco use Cigar Smoker [facility] Start: 06-06-2022 Tobacco use and exposure Smokeless tobacco non-user [facility] Start: 12-04-2022 End: 07-10-2023 Alcohol intake Ex-drinker (finding) [facility] Start: 05-12-2023 End: 07-10-2023 History of Social function [facility] Housing Instability Unknown [facility] Start: 05-22-2022 Tobacco Comment [address] [facility] Start: 1950 Sex Assigned At Not on file P [facility] Start: 02-13-2023 Tobacco use and exposure User of smokeless tobacco [facility] Start: 01-02-2023 Alcohol Comment caffeine yes t yper: chocolate, coffee [facility] Start: 07-02-2023 Alcohol Comment caffeine yes t ype: chocolate, coffee [facility] Start: 07-10-2023 End: 07-18-2023 Tobacco smoking status NVIS Ex-smoker (finding) [facility] NEGATED: Highlighted rowStart: NINF History of tobacco use Passive smoker [facility] Medical Equipment Procedure Code Equipment Code Equipment Origin al Text Equipment Identifier Dates Wound debridement Collagen wound matrix dressing [id number] FDA Start: 02-26-2023 Start: 08-16-2013 Lens Iol Ultrase rt 18.0d - [id number] - [id number] Start: 06-06-2022 Lens Iol Ultrase rt 18.0d - [id number] Start: 06-20-2022 Goals Date Patient Goal Desired Activity /State Functional Status Date Assessment Result Facility 07-10-2023 Functional status Dressing Patient at [facility] Work Phone: 03-04-2023 Functional status Patient at [facility] Work Phone: Mental Status Date Assessment Result Facility 07-10-2023 Cognitive function Cognitive Sta tus Patient at Baseline [facility] Work Phone: 03-04-2023 Cognitive function Cognitive Sta tus Patient at Baseline [facility] Work Phone: Clinical Notes 01-24-2013 to 07-10-2023 Note Date & Type Note Facility 07-10-2023 History and physi burak note Note Date/Time July 10, 2023 9:02pm [facility] [address] [place] [address] Hospitalist H&P Signed Patient: Sudeep Diego JR MR#: [id number] : 1950 Acct:[id number] Age/Sex: 72 / M Adm Date: 4 Loc: Room: [address] [place] [address] Type: ADM IN Attending Dr: Arnaldo Thomas MD Copies to: MD Arnaldo Alicea MD Paula G Smith, CUSTOMER ACQUISITION MANAGER~ HPI DATE OF EXAMINATION: 07/10/23 CHIEF COMPLAINT: foot wound HISTORY OF PRESENT ILLNESS: Mr. Diego is a 72-year-old male with a PMH of T2DM, PVD, PAD, HTN, HLD, angioplasty to LLE the presents to the emergency room tonight for complaints of increased pain, redness and swelling to left foot. 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 He reports on Friday he started to have increased pain and redness tohis foot. He states that yesterday and today he has had chills, at bedsidereports patient was shaking terribly. Unknown if he had a fever. He denies chest pain or shortness of breath. reports that there was drainage noted on his dressing. He went to see podiatry today for his follow-up who sent him to the emergency room. EKG shows sinus rhythm, prolonged QTc of 482. Foot x-ray shows osteopenia alongthe proximal fifth metatarsal, diffuse soft tissue swelling, no additional focalareas of osteopenia or osteolytic/bony destructive changes noted. CBC with a white blood cell count of 32.8, H&H 11.9/35.3, platelets 502. ESR 62. BMP witha potassium of 3.3, anion gap slightly elevated 15.8, glucose 57. CRP 28.5. Initial lactic acid 3.3. Magnesium 1.9. Patient received vancomycin, saline boluses, morphine, Zofran. He will be admitted to the [facility] telemetry floor under the care of the hospitalist team. Review of Systems Review of Systems Review of systems: A 10 point review of systems was obtained, negative unless noted in the HPI or below. [facility] Medical History (Updated 07/10/23 @ 22:09 by Jesica Juan APRN) Prostate cancer PAD (peripheral artery disease) PVD (peripheral vascular disease) Osteomyelitis of foot, left, acute Neuropathy Amputated toe of left foot Sciatica, left side Cataract Singh's palsy Hypertension GERD (gastroesophageal reflux disease) Diabetes Prostate cancer Surgical History (Updated 07/10/23 @ 22:10 by Jesica Juan APRN) H/O angioplasty left anterior tibial artery H/O repair of rotator cuff Right History of appendectomy H/O hernia repair Hx of cholecystectomy Family History (Updated 07/10/23 @ 20:59 by Jesica Juan APRN) Father Hypertension Father Hypertension Mother Diabetes History of stroke Legacy FamHx Problem: Diagnosed with Stroke Stroke Brother Cancer muscle Social History Marital Status: Household Members: spouse Housing/Living Situation Comments: mobile home Smoking Status: Current some day smoker Tobacco Type: cigars Substance Use Type: None Substance Abuse Comment: former drinker quit several years ago Current Occupational Status: retired Recent travel in the [place] w/in past 28 days: No Meds Medications and Allergies Allergies cefepime Allergy (Unknown, Verified 07/10/23 18:46) Hives lisinopril Allergy (Unknown, Verified 07/10/23 18:46) Swelling of Lip/Tongue/Throat, SWELLING metformin Allergy (Unknown, Verified 07/10/23 18:46) Back Pain, KIDNEY PAIN Home Medications atorvastatin 40 mg tablet 40 mg PO DAILY 01/13/23 [History Confirmed 07/10/23] baclofen 20 mg tablet 20 mg PO TID PRN muscle spasm 01/13/23 [History Confirmed 07/10/23] celecoxib 200 mg capsule 200 mg PO DAILY 01/13/23 [History Confirmed 07/10/23] clopidogrel 75 mg tablet (Plavix) 75 mg PO DAILY angioplasty left leg 3 months #90 tabs 01/13/23 [Rx Confirmed 07/10/23] duloxetine 60 mg capsule,delayed release 60 mg PO DAILY 01/13/23 [History Confirmed 07/10/23] flash glucose sensor (FreeStyle Shawn 2 Sensor kit) 01/13/23 [History Confirmed 02/23/23] gabapentin 800 mg tablet 800 mg PO TID 01/13/23 [History Confirmed 07/10/23] metoprolol succinate 50 mg tablet,extended release 24 hr 50 mg PO DAILY 01/13/23[History Confirmed 07/10/23] tramadol 50 mg tablet 50 mg PO Q6-12H PRN Pain 01/13/23 [History Confirmed 07/10/23] insulin glargine 100 unit/mL (3 mL) subcutaneous pen (Basaglar KwikPen U-100 Insulin) 37 unit subcut 2XD 02/23/23 [History Confirmed 07/10/23] insulin lispro 100 unit/mL subcutaneous pen (Humalog KwikPen (U-100) Insulin) See Rx Instructions .Route .COMPLEX 02/23/23 [History Confirmed 07/10/23] cefepime 2 gram solution for injection 2 g IV Q12H 35 days #70 ea 03/03/23 [Rx] nifedipine 30 mg tablet,extended release 24 hr 30 mg PO DAILY #30 tabs 03/04/23 [Rx Confirmed 07/10/23] omeprazole 20 mg capsule,delayed release 20 mg PO QAM 07/10/23 [History Confirmed 07/10/23] Exam Physical Exam Vital Signs: Temp Pulse Resp BP Pulse Ox O2 Del Method 98 F 92 H 20 113/68 99 Room Air 07/10/23 18:45 07/10/23 20:11 07/10/23 19:36 07/10/23 19:36 07/10/23 19:36 07/10/23 19:36 Narrative: CONST- Appears well -developed and well nourished. Morbidly obese- BMI- 29.7 HEAD - Normocephalic and atraumatic EENT-Sclera nonicteric, conjunctive are non-erythemic, moist oral mucosa, pharynx clear NECK-Supple, no cervical lymphadenopathy CARDIAC-normal rate, regular rhythm, S1 & S2. PULM-diminished without wheeze or rhonchi, RA, no accessory muscle use or cough noted ABD - Soft. Bowel sounds are normal. No distention. No tenderness EXTREM-no edema BLE calves, nontender, non pitting edema to left foot SKIN- W/D good turgor, left foot wound to medial great toe- serous drainage noted, white eschar to wound bed, blisters to anterior great toe, great toe purple in color, small pea sized wound to tip of great toe, wound to lateral left foot- white eschar noted, no drainage noted, redness and swelling to dorsalsurface of left foot MS- MAEX4 spontaneously, weakness and pain to left foot NEURO- A&Ox3 speech clear and tongue midline, equal facial symmetry, no focal motor deficits PSYCH-Mood, affect, and behavior appropriate Results Lab Results Labs: Laboratory Last Values Corrected WBC 32.8 X10E3/uL (4.1-10.5) H 07/10/23 19:09 Uncorrected WBC Count 32.8 x10E3/uL (4.1-10.5) H 07/10/23 19:09 RBC 3.98 X10E6/uL (3.90-5.60) 07/10/23 19:09 Hgb 11.9 g/dL (13.0-17.0) L 07/10/23 19:09 Hct 35.3 % (38.8-50.0) L 07/10/23 19:09 MCV 88.6 fl (83.5-101) 07/10/23 19:09 MCH 29.8 pg (27.5-35.2) 07/10/23 19:09 MCHC 33.6 g/dL (32.5-35.6) 07/10/23 19:09 RDW 13.7 % (12.0-14.8) 07/10/23 19:09 Plt Count 502 x10E3/uL (150-450) H 07/10/23 19:09 MPV 7.7 fl (6.6-10.1) 07/10/23 19:09 Neut % (Auto) 84.7 % (.) 07/10/23 19:09 Lymph % (Auto) 6.5 % (.) 07/10/23 19:09 [place] % (Auto) 8.4 % (.) 07/10/23 19:09 Eos % (Auto) 0.3 % (.) 07/10/23 19:09 Baso % (Auto) 0.1 % (.) 07/10/23 19:09 Nucleat RBC Rel Count 0.0 /100 WBC (0-0.5) 07/10/23 19:09 Neut # (Auto) 27.7 x10E3/uL (1.8-7.7) H 07/10/23 19:09 Lymph # (Auto) 2.1 x10E3/uL (1.00-4.8) 07/10/23 19:09 [place] # (Auto) 2.7 x10E3/uL (0.0-0.8) H 07/10/23 19:09 Eos # (Auto) 0.1 x10E3/uL (0.0-0.45) 07/10/23 19:09 Baso # (Auto) 0.0 x10E3/uL (0.0-0.2) 07/10/23 19:09 Monocyte Dist Width 22.38 % (0.00-20.00) H 07/10/23 19:09 Platelet Estimate Increased (Normal) 07/10/23 19:09 Large Platelets Slight 07/10/23 19:09 Plt Morphology Comment N/A 07/10/23 19:09 RBC Morphology Normal (Normal) 07/10/23 19:09 PHA Creatinine Clear 59.59 07/10/23 19:09 Sodium 136 mmol/L (136-145) 07/10/23 19:09 Potassium 3.3 mmol/L (3.5-5.1) L 07/10/23 19:09 Chloride 98 mmol/L (98-107) 07/10/23 19:09 Carbon Dioxide 25.5 mmol/L (21.0-31.0) 07/10/23 19:09 Anion Gap 15.8 mEq/L (6.0-15.0) H 07/10/23 19:09 BUN 23 mg/dL (7-25) 07/10/23 19:09 Creatinine 1.23 mg/dL (0.70-1.30) 07/10/23 19:09 Est GFR (CKD-EPI) > 60.0 mL/Min 07/10/23 19:09 Glucose 57 mg/dL (70-100) L 07/10/23 19:09 Lactic Acid 3.3 mmol/L (0.5-2.2) H* 07/10/23 19:09 Calcium 9.1 mg/dL (8.6-10.3) 07/10/23 19:09 Assessment & Plan Assessment/Plan (1) Sepsis: (2) Diabetic foot infection: (3) PAD (peripheral artery disease): (4) T2DM (type 2 diabetes mellitus): (5) Hyperlipemia: (6) HTN (hypertension): Plan Sepsis likely due to diabetic foot wound Diabetic foot wound?history of Pseudomonas PAD?history of angioplasty to left anterior tibial artery ? Continue IV hydration?LR 75 cc/hr ? Continue vancomycin?pharmacy to dose, start meropenem?pharmacy to dose ? Consult podiatry ? Consult ID ? US PVR BLE in am ? CBC, BMP, magnesium, coags, EKG in a.m. ? Acetaminophen, oxycodone, hydromorphone as needed Chronic conditions T2DM?fingersticks ACHS, SSI C, continue basal insulin HTN?monitor for hypotension with sepsis, continue metoprolol HLD?continue atorvastatin DVT PPx-SCDs, hold pharmacological therapy pending surgery Diet order-1800 ADA CODE STATUS-full code IP vs OBS Justification Based on differential dx, clinical care plan, and risk of adverse events, if untreated, in my clinical judgement this patient requires an acute care setting as: INPATIENT because of an expectation of an over 2 midnight stay. Estimated length of stay (# of days): 3 Quality Measures SEPSIS Tissue perfusion reassessment (select if applicable): Tissue perfusion reassessed after bolus given FOCUSED EXAM Capillary refill: Capillary refill < 3 seconds Peripheral pulses: Pulses present bilaterally Skin color/condition: Warm and pink Urinary output: Increased output Documented By: Jesica Juan APRN 07/10/232054 Signed By: <Electronically signed by LELAND Juan> 07/10/232224 <Electronically signed by Arnaldo Thomas MD> 07/11/23 0710 [facility] Work Phone: [phone] History of Present illness Narrative* Rohan Han, TOY - 07/10/2023 4:00 PM EST Patient: Sudeep Diego : 1950 PCP: Tejas Stevens MD SUBJECTIVE This is a 72 y.o. male that presents today 84 days s/p left split-thickness skin graft Pt denies n/f/v/c and has minimal pain to post op site. Patient present today for follow up of ulceration to left foot with recent epidermal skin graft andis 8 days postop Pt denies any n/f/v/c. Patient relates over the past 3 days he has had chills like sensations and uncontrolled glucose with pain to the left foot. Patient denies removing of dressing and presents today with pain to his left foot. No contact with may by patient during the postoperative period to relate any symptoms. Allergies: Allergies Allergen Reactions Metformin Other Reaction(s): Other (See Comments) Kidney pain Lisinopril Rash Past Medical History: Past Medical History: Diagnosis Date Alcoholism ([facility]) Arthritis Broken ankle, right Broken collarbone Broken neck ([facility]) Bunion Cataract Compression fracture of C-spine ([facility]) 2010 T10-T12 DDD (degenerative disc disease), cervical DDD (degenerative disc disease), lumbar Depression ([facility]) Diabetic ulcer of left midfoot associated with type 2 diabetes mellitus, limited to breakdown of skin ([facility]) DM (diabetes mellitus) ([facility]) Elevated PSA Foot ulcer ([facility]) GERD (gastroesophageal reflux disease) History of elevated prostate specific antigen (PSA) History of medical problems 2010 degenrative change mid/lower thoracic spine Hx of shoulder surgery 2003 Hypertension ([facility]) Lumbar spondylolysis Neuropathy in diabetes ([facility]) Ocular palsy of right eye Osteomyelitis of left foot, unspecified type (CMS/HCC) Prostate cancer ([facility]) PSA elevation Pulmonary arterial hypertension (CMS/HCC) Substance abuse ([facility]) Type 2 diabetes mellitus with diabetic polyneuropathy, with long-term current use of insulin ([facility]) Vitamin D deficiency Weak urinary stream Medications: Current Outpatient Medications: atorvastatin (Lipitor) 40 MG tablet, Take 40 mg by mouth at bedtime., Disp: , Rfl: baclofen (Lioresal) 20 MG tablet, Take 20 mg by mouth in the morning and 20 mg in the evening and 20 mg before bedtime., Disp: , Rfl: cefepime (Maxipime) 2 g injection, , Disp: , Rfl: celecoxib (CeleBREX) 200 MG capsule, Take 200 mg by mouth in the morning and 200 mg before bedtime., Disp: , Rfl: clopidogrel (Plavix) 75 MG tablet, Take 75 mg by mouth in the morning., Disp: , Rfl: DULoxetine (Cymbalta) [address] capsule, Take 60 mg by mouth in the morning., Disp: , Rfl: gabapentin (Neurontin) 800 MG tablet, TAKE 1 TABLET BY MOUTH THREE TIMES DAILY, Disp: 90 tablet, Rfl: 2 ketorolac (Acular) 0.5 % ophthalmic solution, Administer 1 drop into both eyes in the morning and 1drop at noon and 1 drop in the evening and 1 drop before bedtime., Disp: , Rfl: magnesium oxide (Mag-Ox) 400 (240 Mg) MG tablet, Take 400 mg by mouth in the morning., Disp: , Rfl: meropenem (Merrem) 1 g injection, , Disp: , Rfl: metFORMIN (Glucophage) 1000 MG tablet, Take 1,000 mg by mouth in the morning. Take with meals., Disp: , Rfl: metoprolol succinate XL (Toprol-XL) 50 MG 24 hr tablet, Take 50 mg by mouth in the morning., Disp: , Rfl: NIFEdipine XL (Procardia XL) 30 MG 24 hr tablet, Take 30 mg by mouth in the morning., Disp: , Rfl: ROS: General: Patient states last 24 hours fevers and chills GI: denies abdominal pain or ulcerations with anti-inflammatory medication OBJECTIVE LE EXAM: Derm: Lateral left foot has area of dehiscence and ulceration present and area of skin graft. Ulceration lateral left foot measures 2.0cm x 0.5 cm x 0.2 cm subcutaneous thickness depth with negative serous drainage negative erythema negative to minimal fibrous slough. Medial aspect left 1st metatarsal has a 1 cm x 1 cm x 0.3 cm subcutaneous and what appears to be capsular thickness depth ulceration with positive erythema surrounding the ulcerative site as well as to the great toe and extending up to the midfoot region of the left foot with negative crepitus noted Vascular: Barely Palpable pedal pulses to left foot and right foot Neuro: 5.07 [place] [facility]ha monofilament test diminished to digits and forefoot bilaterally 125Hz tuning fork diminished to 1st MPJ bilaterally Musculoskeletal: Negative pain on palpation to left calf. Ortho: Ankle range of motion less than 10 degrees of dorsiflexion at left ankle joint. Positive pain on palpation nails 1 through 9 ASSESSMENT 84 days s/p split-thickness skin graft to left foot 1. Foot ulcer, left, with fat layer exposed (CMS/HCC) 2. 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 PVD (peripheral vascular disease) (CMS/HCC) 4. Foot ulcer, left, with necrosis of muscle (HCC) (CMS/HCC) PLAN Discussed with patient present today of possible treatments including oral antibiotics howeverdid discuss with patient most likely be beneficial to report to ER for lab workup as well as possible CT scan or IV antibiotics. Patient may need to be admitted and will discuss with local hospital far as possible admission if warranted documented in this encounterSaint Joseph Health [id number] History of Present illness Narrative* Rohan Han DPM - 06/26/2023 4:10 PM EST Patient: Sudeep Diego : 1950 PCP: Tejas Stevens MD SUBJECTIVE This is a 72 y.o. male that presents today 70 days s/p left split-thickness skin graft Pt denies n/f/v/c and has minimal pain to post op site. Patient presents today with a CC of elongated, thick nails. Pt states nails have been elongated and thick for many years and cause pain with ambulation in shoegear. Pt has tried previous treatment with minimal relief. Pt presents today for nail care and treatment. Patient is DM2 Pt states that they have been keeping dressing dry and intact and have been minimal weight-bearing to post op foot. Patient has been applying Cassie daily to the ulcerative wound. Patient presents to for follow up and is also presenting today for preop visit for epidermal skin graft which is to be a staged procedure from the thigh to the left foot ulcer to assist in healing. Allergies: Allergies Allergen Reactions Metformin Other Reaction(s): Other (See Comments) Kidney pain Lisinopril Rash Past Medical History: Past Medical History: Diagnosis Date Alcoholism ([facility]) Arthritis Broken ankle, right Broken collarbone Broken neck ([facility]) Bunion Cataract Compression fracture of C-spine ([facility]) 2010 T10-T12 DDD (degenerative disc disease), cervical DDD (degenerative disc disease), lumbar Depression ([facility]) Diabetic ulcer of left midfoot associated with type 2 diabetes mellitus, limited to breakdown of skin ([facility]) DM (diabetes mellitus) ([facility]) Elevated PSA Foot ulcer ([facility]) GERD (gastroesophageal reflux disease) History of elevated prostate specific antigen (PSA) History of medical problems 2010 degenrative change mid/lower thoracic spine Hx of shoulder surgery 2003 Hypertension ([facility]) Lumbar spondylolysis Neuropathy in diabetes ([facility]) Ocular palsy of right eye Osteomyelitis of left foot, unspecified type ([facility]) Prostate cancer ([facility]) PSA elevation Pulmonary arterial hypertension ([facility]) Substance abuse ([facility]) Type 2 diabetes mellitus with diabetic polyneuropathy, with long-term current use of insulin ([facility]) Vitamin D deficiency Weak urinary stream Medications: Current Outpatient Medications: atorvastatin (Lipitor) 40 MG tablet, Take 40 mg by mouth at bedtime., Disp: , Rfl: baclofen (Lioresal) 20 MG tablet, Take 20 mg by mouth in the morning and 20 mg in the evening and 20 mg before bedtime., Disp: , Rfl: cefepime (Maxipime) 2 g injection, , Disp: , Rfl: celecoxib (CeleBREX) 200 MG capsule, Take 200 mg by mouth in the morning and 200 mg before bedtime., Disp: , Rfl: clopidogrel (Plavix) 75 MG tablet, Take 75 mg by mouth in the morning., Disp: , Rfl: DULoxetine (Cymbalta) [address] capsule, Take 60 mg by mouth in the morning., Disp: , Rfl: gabapentin (Neurontin) 800 MG tablet, TAKE 1 TABLET BY MOUTH THREE TIMES DAILY, Disp: 90 tablet, Rfl: 2 ketorolac (Acular) 0.5 % ophthalmic solution, Administer 1 drop into both eyes in the morning and 1drop at noon and 1 drop in the evening and 1 drop before bedtime., Disp: , Rfl: magnesium oxide (Mag-Ox) 400 (240 Mg) MG tablet, Take 400 mg by mouth in the morning., Disp: , Rfl: meropenem (Merrem) 1 g injection, , Disp: , Rfl: metFORMIN (Glucophage) 1000 MG tablet, Take 1,000 mg by mouth in the morning. Take with meals., Disp: , Rfl: metoprolol succinate XL (Toprol-XL) 50 MG 24 hr tablet, Take 50 mg by mouth in the morning., Disp: , Rfl: NIFEdipine XL (Procardia XL) 30 MG 24 hr tablet, Take 30 mg by mouth in the morning., Disp: , Rfl: traMADol (Ultram) 50 MG tablet, Take 1 tablet (50 mg) by mouth 4 (four) times a day as needed for moderate pain or severe pain, Disp: 120 tablet, Rfl: 0 ROS: Gastrointestinal: denies abdominal pain, ulcers, or changes in appetite or bowel habits Musculoskeletal: denies arthritis, denies loss of strength, pain to hip, knees, back Cardiovascular: denies CP, palpitations, irregular rhythms OBJECTIVE LE EXAM: Derm: Lateral left foot has area of dehiscence and ulceration present and area of previous skin graft. Ulceration lateral left foot measures 2.5cm x 0.5 cm x 0.2 cm subcutaneous thickness depth with moderate serous drainage negative erythema positive fibrous slough. Medial aspect left 1st metatarsal has a 1 cm x 1 cm x 0.2 cm subcutaneous thickness depth ulceration unrelated to prior ulcerations with slight fibrous slough and negative probe to bone and negative erythema Elongated thick yellow crumbly nails digits 1 through 9 with diminished hair growth and thin shiny atrophic skin bilateral Vascular: Barely Palpable pedal pulses to left foot and right foot Neuro: 5.07 [place] [facility]ha monofilament test diminished to digits and forefoot bilaterally 125Hz tuning fork diminished to 1st MPJ bilaterally Musculoskeletal: Negative pain on palpation lucie eft calf. Ortho: Ankle range of motion less than 10 degrees of dorsiflexion at left ankle joint. Positive pain on palpation nails 1 through 9 ASSESSMENT 70days s/p split-thickness skin graft to left foot Type 2 diabetes with peripheral neuropathy Ulcerative subcutaneous tissue left foot 1. Foot ulcer, left, with fat layer exposed (CMS/HCC) 2. 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 PVD (peripheral vascular disease) ([facility]) 4. Onychomycosis 5. Toe pain, left 6. Toe pain, right PLAN Sharp debridement with 15 blade of subcutaneous ulceration to left foot with active bleeding noted and removal and excision of fibrotic and necrotic tissue to wound and DSD Cassie applied and patientcontinue with Cassie daily Discussed proper foot care with patient today. [place]br[place] nails in length and thickness digits 1 through 9 Patient given prescription for pain medication to be taken postoperatively. Decision for surgery today and patient medically cleared from a podiatric standpoint for surgery and to proceed with surgery. Pt scheduled for preparation of left foot ulcer for skin grafting with epidermal skin graft from thigh to left foot ulcer, a staged procedure Discussed with the patient the nature of condition and operative vs nonoperative care. The surgicalplans, risks, alternatives, benefits, post op complications and correction expectations were discussed including but not limited to: infection,bone infection,wound dehiscence hardware failure and irritation,wound dehiscence,delay union/mal union/non union of bone. RSDS,neuroma,duty limitations,DVT/PE, OR,nerve damage, scar, loss of sensation, swelling. Pt understands the proposed sx in detail and has agreed with proposed surgery. No guarantees were given or implied. Pt willingly consents to procedure and to have surgical procedure. Pt also understands risks including COVID-19 current risk in a surgical setting. Pt is a low acceptable risk for outpatient surgery from a podiatric standpoint with an ASA of a 2. Rohan Han DPM, FACFAS H&P up to date and current (date) June 26, 2023 Rohan Han DPM documented in this encounterSaint Joseph Health [id number] Evaluation note* Encounter Date Diagnosis Assessment Notes Treatment Notes Treatment Clinical Notes Jun, Type 2 diabetes mellitus with hyperglycemia (ICD-10 - E11.65) Managing type 2 diabetes material was published 1. Uncontrolled, Type 2 diabetes with A1C of 7.7%. 2. Blood glucose levels above target. According to shawn cgm download 06/13/23-06/26/23; Avg glucose 153. >250-1%, >180-23%, 70-180-76%, <70-0%, <54-0%. GMI 7%. Reviewed download with pt. Glucose above target postprandial from higher carb load, underestimation of insulin for meal. Reviewed with pt how to tirate basal/bolus insulin according to fasting am/ meal to meal glucose pattern. Pt verbalizes understanding. 3. Patient is alert, oriented and receptive to making changes or counseling. Notes: Seen for an assessment of current glucose pattern, changes in treatment plan, with this time spent in counseling and coordination of care related to diabetes, risks, and benefits of treatment, medications, and side effects. TOPICS REVIEWED: 1. Time was spent reviewing: a. Basic concepts of diabetes, progressive beta cell , concepts of basal/bolus/correcti ve insulin requirements. Basal: The goal is fasting blood glucose of 90-130mg. IF fasting blood glucose starts to run under 100mg 3x's/ week, decrease dose by 10%. Bolus: The goal is to hold the blood glucose level steady meal to meal. If pt. is going to have increased physical activity after a meal, decrease the schedule meal dose prior to the activity by 30-50%. If pt. skips a meal do not take this dose. Correction: The goal is to correct an elevated glucose back into the 100-150mg range b. Nutrition: Concepts of healthy diet, encouraged to decrease saturated fat in diet and increase non-starchy vegetables and fruits in diet. BMI: Pt. needs to select one small change to decrease caloric intake or increase physical activity to help decrease weight. c. Correct treatment of hypoglycemia, carry a glucose source at all times on your person, in vehicles, and at bedside. Can use glucose tablets/4, four ounces of pop or juice equal to 15 G of carbohydrate. Blood glucose should be 100 mg/dl or higher when driving. d. ADA glucose goals for age and medical complexity reviewed e. Patient questions addressed 2. Activity/exercise: Encouraged to start any form of physical activity. Start low level and increase slowly to a minimal goal of 150 minutes/week. Limit activity to what is allowed by other issues such as cardiac, pulmonary or orthopedic restrictions. 3. Standards of care: Reminded to have an annual dilated eye exam, A1C every 3 months, urine testing for microalbumin once/year, check feet daily and report any cuts or sores that do not appear to be healing. 4. Meter: Plan to check blood glucose: Please check blood glucose levels 4 times/day. Back to back meals reveal effectiveness of bolus dosing. The Blood glucose data is used to determine insulin doses, and confirm symptoms for hypoglycemia and hyperglcyemia. 5. [facility]. Contact office if any issues or concerns with patterns of hypoglycemia, hyperglycemia, or diabetes medication issues. 6. Prescriptions: [facility]KIE PAP-Basaglar/Humalog /Trulicity. [facility] [place] [facility]-None. DME: [facility] [place] [facility]. 7. Prescriptions will not be filled unless you are compliant with follow up appointments or have a follow up appointment scheduled as ordered by your provider. Refills should be requested at the time of your visit. 8. Labs ordered, encouraged to have labs done. Jun, Dietary counseling and surveillance (ICD-10 - Z71.3) Heart healthy diet material was published Jun, HTN (hypertension) (ICD-10 - I10) Managing high blood pressure material was published Jun, longterm current use of insulin (ICD-10 - Z79.4) Jun, Hypoglycemia associated with type 2 diabetes mellitus (ICD-10 - E11.649) Diabetes and foot care material was published see above Jun, Mixed hyperlipidemia (ICD-10 - E78.2) Cholesterol-lo wering diet material was published 02/2022 ldl 27, trig. 269 on statin Jun, BMI 30.0-30.9,adult (ICD-10 - Z68.30) Jun, Ulcer of left foot, unspecified ulcer stage (ICD-10 - L97.529) keep f/u with Dr. Han [facility] Other 12-06-2023 Evaluation note* Encounter Date Diagnosis Assessment Notes Treatment Notes Treatment Clinical Notes Apr, Osteomyelitis of foot, left, acute (ICD-10 - M86.172) Finished IV abx last week and is doing well. Left foot overall clincically better he tells me but given specialty dressings this was not unwrapped in my office. He follows with Dr. Han for his foot care. CRP has downtrended. No follow up needed unless things change. [facility] Other 11-16-2023 Evaluation note* Encounter Date Diagnosis Assessment Notes Treatment Notes Treatment Clinical Notes Mar, Osteomyelitis of foot, left, acute (ICD-10 - M86.172) Patient to continue to have marker inflammation checked as this does show signs of resolution. Given bone infection would like to make sure he completes enough antibiotics for which he has been on about almost 4 to 5 weeks. Would like to extend course of meropenem an additional 2 weeks. We will continue to check markers of inflammation. [facility] Other 10-26-2023 Evaluation note* Encounter Date Diagnosis Assessment Notes Treatment Notes Treatment Clinical Notes Feb, Type 2 diabetes mellitus with hyperglycemia (ICD-10 - E11.65) Managing type 2 diabetes material was published 1. Controlled, Type 2 diabetes with A1C of 6.4%. 2. Blood glucose levels improved. According to shawn cgm reviewed manually last 7 days: Avg glucose 147. >180-11%, 70-180-89%, <70-0%. Pt reports when d/c'd from hospital his basaglar dose was decreased, he is now taking basaglar 25 units in the am. He continues to use between 10-15 units of humalog with meals. He has lost 20 pounds since last visit, reports his appetite has decreased and is eating healthier. Reviewed with pt how to tirate basal/bolus insulin according to fasting am/ meal to meal glucose pattern. Pt verbalizes understanding. 3. Patient is alert, oriented and receptive to making changes or counseling. Notes: Seen for an assessment of current glucose pattern, changes in treatment plan, with this time spent in counseling and coordination of care related to diabetes, risks, and benefits of treatment, medications, and side effects. TOPICS REVIEWED: 1. Time was spent reviewing: a. Basic concepts of diabetes, progressive beta cell , concepts of basal/bolus/correct rajat insulin requirements. Basal: The goal is fasting blood glucose of 90-130mg. IF fasting blood glucose starts to run under 100mg 3x's/ week, decrease dose by 10%. Bolus: The goal is to hold the blood glucose level steady meal to meal. If pt. is going to have increased physical activity after a meal, decrease the schedule meal dose prior to the activity by 30-50%. If pt. skips a meal do not take this dose. Correction: The goal is to correct an elevated glucose back into the 100-150mg range b. Nutrition: Concepts of healthy diet, encouraged to decrease saturated fat in diet and increase non-starchy vegetables and fruits in diet. BMI: Pt. needs to select one small change to decrease caloric intake or increase physical activity to help decrease weight. c. Correct treatment of hypoglycemia, carry a glucose source at all times on your person, in vehicles, and at bedside. Can use glucose tablets/4, four ounces of pop or juice equal to 15 G of carbohydrate. Blood glucose should be 100 mg/dl or higher when driving. d. ADA glucose goals for age and medical complexity reviewed e. Patient questions addressed 2. Activity/exercise: Encouraged to start any form of physical activity. Start low level and increase slowly to a minimal goal of 150 minutes/week. Limit activity to what is allowed by other issues such as cardiac, pulmonary or orthopedic restrictions. 3. Standards of care: Reminded to have an annual dilated eye exam, A1C every 3 months, urine testing for microalbumin once/year, check feet daily and report any cuts or sores that do not appear to be healing. 4. Meter: Plan to check blood glucose: Please check blood glucose levels 4 times/day. Back to back meals reveal effectiveness of bolus dosing. The Blood glucose data is used to determine insulin doses, and confirm symptoms for hypoglycemia and hyperglcyemia. 5. [facility]. Contact office if any issues or concerns with patterns of hypoglycemia, hyperglycemia, or diabetes medication issues. 6. Prescriptions: BECKIE PAP-Basaglar/Humalo g/Trulicity. 2023 BECKIE PAP ANASTASIA completed and required documentation supplied. 7. Prescriptions will not be filled unless you are compliant with follow up appointments or have a follow up appointment scheduled as ordered by your provider. Refills should be requested at the time of your visit. Feb, Dietary counseling and surveillance (ICD-10 - Z71.3) Heart healthy diet material was published Feb, HTN (hypertension) (ICD-10 - I10) Managing high blood pressure material was published Feb, longterm current use of insulin (ICD-10 - Z79.4) Feb, Hypoglycemia associated with type 2 diabetes mellitus (ICD-10 - E11.649) Diabetes and foot care material was published see above Feb, Mixed hyperlipidemia (ICD-10 - E78.2) Cholesterol-low ering diet material was published 02/2022 ldl 27, trig. 269 on statin Feb, BMI 30.0-30.9,adult (ICD-10 - Z68.30) 20 pound weight loss from last visit, continue with weight loss efforts Feb, Ulcer of left foot, unspecified ulcer stage (ICD-10 - L97.529) keep f/u with Dr. Han Recochem Other 10-16-2023 Miscellaneous Notes* Telephone Encounter - Corrine Terrell RN - 03/10/2023 9:44 AM EDT ----- Message from Christine Vargas PA-C sent at 03/07/2023 3:55 PM EDT ----- Regarding: Follow up on outpatient imaging This was a patient we saw as a telestroke consult at [facility]. He had abnormal brain MRI showing midline frontal lobe changes on DWI/Flair. Uncertain if possible meningioma or brain abscess. Dr. Cummins recommended repeat MRI brain with and without contrast once his kidney function improved. Patient prefers outpatient and Dr. Cummins was okay with this. was given our clinic phone number and instructed to let us know when completed so Dr. uCmmins can review. We can call them with the results. * Telephone Encounter - Dorina Pineda - 03/10/2023 9:44 AM EDT Patient's spouse, Rita wanted to inform clinical staff that the their still needs to approve the MRI brain with and without contrast. * Telephone Encounter - Corrine Terrell RN - 03/10/2023 9:44 AM EDT Returned call to spouse. Imaging is scheduled at [facility]. Will send clinicals to them so they can submit prior authorization. * Telephone Encounter - Corrine Terrell RN - 03/10/2023 9:44 AM EDT Jhonny, can you fax office note to [facility] please * Telephone Encounter - Oni Coleman CNA - 03/10/2023 9:44 AM EDT Faxed office note to [facility]. * Telephone Encounter - Corrine Terrell RN - 03/10/2023 9:44 AM EDT Can you see when imaging is scheduled for with [facility] please * Telephone Encounter - Oni Coleman CNA - 03/10/2023 9:44 AM EDT Called [facility] to see if there was any imaging scheduled. I was told that there was not. I had them route me to scheduling and I was not able to reach anyone. I contacted patient's spouse in order to get clarification as to what was going one. She stated that she had not been contacted by anyone in regards to getting the imaging scheduled. * Telephone Encounter - Oni Coleman CNA - 03/10/2023 9:44 AM EDT Called and got the imaging pushed to us. * Telephone Encounter - Kelly Sullivan - 03/10/2023 9:44 AM EDT Received call today 03/27/23 4:23 from patient's , Rita (HIPAA/PHI contact), to get status update. I informed her of Oni's message below and she voiced understanding. She said nothing neededfurther at this time. * Telephone Encounter - Corrine Terrell RN - 03/10/2023 9:44 AM EDT Nothing yet received. * Telephone Encounter - Oni Coleman CNA - 03/10/2023 9:44 AM EDT Called and requested that imaging be sent over. * Telephone Encounter - Oni Coleman CNA - 03/10/2023 9:44 AM EDT Received and scanned in report into intermediate project manager. please advise. * Telephone Encounter - Ml Brenner PA-C - 03/10/2023 9:44 AM EDT Please have Dr. Cummins review MRI brain. Thinking this is meningioma and most appropriate for followup with neurosurgery Ml Brenner PA-C 04/03/23 [id number] * Telephone Encounter - Oni Coleman CNA - 03/10/2023 9:44 AM EDT Called and requested that imaging be sent over. * Telephone Encounter - Corrine Terrell RN - 03/10/2023 9:44 AM EDT Reviewed with Dr. Cummins. Patient needs to see neurosurgery. [facility] Tele[facility] Note* Telephone Encounter - Corrine Terrell RN - 03/10/2023 9:44 AM EDT ----- Message from Christine Vargas PA-C sent at 03/07/2023 3:55 PM EDT ----- Regarding: Follow up on outpatient imaging This was a patient we saw as a telestroke consult at [facility]. He had abnormal brain MRI showing midline frontal lobe changes on DWI/Flair. Uncertain if possible meningioma or brain abscess. Dr. Cummins recommended repeat MRI brain with and without contrast once his kidney function improved. Patient prefers outpatient and Dr. Cummins was okay with this. was given our clinic phone number and instructed to let us know when completed so Dr. Cummins can review. We can call them with the results. [facility]10-16-[facility]23 Telephone encounter Note* Telephone Encounter - Dorina Pineda - 03/10/2023 9:44 AM EDT Patient's spouse, Rita wanted to inform clinical staff that the their still needs to approve the MRI brain with and without contrast. [facility] Telephone encounter Note* Telephone Encounter - Corrine Terrell RN - 03/10/2023 9:44 AM EDT Returned call to spouse. Imaging is scheduled at [facility]. Will send clinicals to them so they can submit prior authorization. [facility] Telephone encounter Note* Telephone Encounter - Corrine Terrell RN - 03/10/2023 9:44 AM EDT Jhonny, can you fax office note to [facility] please [facility]-16-[facility] Telephone encounter Note* Telephone Encounter - Oni Coleman CNA - 03/10/2023 9:44 AM EDT Faxed office note to [facility]10-16-[facility]23 Telephone encounter Note* Telephone Encounter - Corrine Terrell RN - 03/10/2023 9:44 AM EDT Can you see when imaging is scheduled for with [facility] please [facility]10-16-2023 Telephone encounter Note* Telephone Encounter - Oni Coleman CNA - 03/10/2023 9:44 AM EDT Called [facility] to see if there was any imaging scheduled. I was told that there was not. I had them route me to scheduling and I was not able to reach anyone. I contacted patient's spouse in order to get clarification as to what was going one. She stated that she had not been contacted by anyone in regards to getting the imaging scheduled. [facility]10-16-[facility]23 Telephone encounter Note* Telephone Encounter - Oni Coleman CNA - 03/10/2023 9:44 AM EDT Called and got the imaging pushed to us. [email or web address] Telephone encounter Note* Telephone Encounter - Kelly Sullivan - 03/10/2023 9:44 AM EDT Received call today 03/27/23 4:23 from patient's , Rita (HIPAA/PHI contact), to get status update. I informed her of Oni's message below and she voiced understanding. She said nothing neededfurther at this time. [email or web address] Telephone encounter Note* Telephone Encounter - Corrine Terrell RN - 03/10/2023 9:44 AM EDT Nothing yet received. [email or web address] Telephone encounter Note* Telephone Encounter - Oni Coleman CNA - 03/10/2023 9:44 AM EDT Called and requested that imaging be sent over. [email or web address] Telephone encounter Note* Telephone Encounter - Oni Coleman CNA - 03/10/2023 9:44 AM EDT Received and scanned in report into intermediate project manager. please advise. [email or web address] Telephone encounter Note* Telephone Encounter - Ml Brenner PA-C - 03/10/2023 9:44 AM EDT Please have Dr. Cummins review MRI brain. Thinking this is meningioma and most appropriate for followup with neurosurgery Ml Brenner PA-C 04/03/23 [id number] [email or web address] Work Phone: [phone] 745-592810-16-2023 Telephone encounter Note* Telephone Encounter - Oni Coleman CNA - 03/10/2023 9:44 AM EDT Called and requested that imaging be sent over. [email or web address] Telephone encounter Note* Telephone Encounter - Corrine Terrell RN - 03/10/2023 9:44 AM EDT Reviewed with Dr. Cummins. Patient needs to see neurosurgery. [facility] Certess [id number] Hospital Discharge instructionsAmbulatory Orders* Initiate Home Health Time Frame: 1 Day, Location: Determined By Patient Additional Instructions Home health to manage: - PT/OT to eval and treat - Monitor VS routine - Hx. HTN - Monitor for s/s of infection - Dx. Osteomyelitis - Medication management - IV antibiotics as ordered - PICC line - routine assessments/care - placed 03/04/23 - Labs as ordered -- CRP and Creatinine weekly x 4 weeks - Monitor blood sugars - Dx. DM - Routine skin assessments/care - Wound care: -- Wound Vac to left foot granufoam (black) continuous at 125mmHg - change 3 times/week - Monitor blood sugars - Dx. DM - Fall precautions - [facility] Work Phone: [phone]) 117-649310-10-2023 Progress note Author Michael Ramírez [facility] March 04, 2023 10:01am Note Date/Time March 04, 2023 1 0:01am [facility] [address] [place] [address] Infect. Disease Progress Note Signed Patient: Sudeep Diego JR MR#: [id number] : 1950 Acct:[id number] Age/Sex: 72 / M Adm Date: 3 Loc: 4N Room: [address] [place] [address] Type: ADM IN Attending Dr: Orestes Mejia DO Copies to: ~ Date of Service: 03/04/2023 Subjective Interval history: Patient doing well today. Looking forward to going home. Has wound VAC in place on his left foot. Did get his PICC line. States his diarrhea is better controlled Exam Physical Exam Vital Signs: Temp Pulse Resp BP Pulse Ox O2 Del Method 97.7 F 72 20 197/95 H 100 Room Air 03/04/23 07:43 03/04/23 07:43 03/04/23 07:43 03/04/23 07:43 03/04/23 07:43 03/04/23 04:27 Const General: cooperative, comfortable and no acute distress Orientation: alert, awake and oriented x3 HEENT Head: normal to inspection Ears: hearing grossly normal bilaterally Nose: external nose normal Eyes General: appearance normal, both eyes and all related structures Neck Neck: normal visual inspection Resp Effort & Inspection: normal respiratory effort and able to speak in complete sentences Auscultation: clear to auscultation bilaterally, no rales, no rhonchi and no wheezes Cardio Rate: regular rate Rhythm: regular rhythm GI Inspection: non-distended Palpation: soft, no hepatosplenomegaly, no guarding and nontender Neuro General: patient alert, patient awake and patient oriented x3 Cognition: normal cognition Speech: speech normal Extrem General: no clubbing, cyanosis or edema Psych Appearance: grossly normal Mood: congruent mood Affect: normal affect Objective Microbiology Microbiology: Microbiology - Results from entire visit 02/26/23 11:34 Toe,Left Fifth - Other Aerobic Culture - Final Pseudomonas aeruginosa (MDRO) 02/26/23 11:34 Toe,Left Fifth - Other Anaerobic Culture - Final No Anaerobes Isolated 3 Days 02/26/23 11:34 Toe,Left Fifth - Other Gram Stain - Final 02/23/23 12:05 Blood - Left Hand Blood Culture - Final NO GROWTH 5 DAYS 02/23/23 12:07 Blood - Left Forearm Blood Culture - Final NO GROWTH 5 DAYS Allergies and Medications Allergies and Active Meds Allergies lisinopril Allergy (Verified 02/23/23 11:42) Swelling of Lip/Tongue/Throat metformin Adverse Reaction (Verified 02/23/23 11:42) Back Pain Active Medications Acetaminophen (Acetaminophen 325 Mg Tablet) 650 mg PO Q4H PRN PRN Reason: Pain Stop: 02/26/24 17:35 Atorvastatin Calcium (Atorvastatin 40 Mg Tablet) 40 mg PO DAILY [facility]I Stop: 02/23/24 17:14 Last Admin: 03/04/23 09:34 Dose: 40 mg Baclofen (Baclofen 20 Mg Tablet) 20 mg PO Q8H PRN PRN Reason: Muscle Spasm Stop: 02/26/24 19:59 Last Admin: 03/04/23 04:14 Dose: 20 mg Celecoxib (Celecoxib 200 Mg Capsule) 200 mg PO DAILY [facility] Stop: 02/24/24 08:59 Last Admin: 03/04/23 09:34 Dose: 200 mg Clopidogrel Bisulfate (Clopidogrel Bisulfate 75 Mg Tablet) 75 mg PO DAILY [facility] Stop: 02/23/24 17:14 Last Admin: 02/26/23 14:37 Dose: Not Given Dextrose (Dextrose 50% In Water 25 Gm/50 Ml Syringe) 0 gm IV-PUSH PRN PRN PRN Reason: Hypoglycemia Stop: 02/24/24 12:16 Last Admin: 03/01/23 15:28 Dose: 25 gm Duloxetine HCl (Duloxetine 60 Mg Capsule.Dr) 60 mg PO DAILY [facility] Stop: 02/23/24 17:14 Last Admin: 03/04/23 09:35 Dose: 60 mg Enoxaparin Sodium (Enoxaparin 40 Mg/0.4 Ml Syringe) 40 mg SUBCUT DAILY@10 [facility] Stop: 02/24/24 09:59 Last Admin: 02/26/23 09:49 Dose: Not Given Gabapentin (Gabapentin 800 Mg Tablet) 800 mg PO BID [facility] Stop: 02/27/24 20:59 Last Admin: 03/04/23 09:34 Dose: 800 mg Glucose (Dextrose 40% Gel 15 Gm Tube) 0 gm PO PRN PRN PRN Reason: Hypoglycemia Stop: 02/24/24 12:16 Cefepime HCl (Maxipime) 2 gm in 50 mls @ 100 mls/hr IV Q12H [facility] Last Infusion: 03/04/23 05:00 Dose: Infused Insulin Aspart (Insulin Aspart 300 Units/3 Ml Insuln.Pen) 0 units SUBCUT TID.AC.[facility]; Protocol Stop: 02/24/24 16:59 Last Admin: 03/04/23 09:36 Dose: Not Given Insulin Glargine (Insulin Glargine 300 Units/3 Ml Insuln.Pen) 41 units SUBCUT BID [facility] Stop: 02/24/24 09:59 Last Admin: 03/04/23 09:36 Dose: 21 units Lidocaine HCl (Lidocaine 1% 50 Ml Vial) 0.1 ml INTRADERMA PREOP PRN PRN Reason: Venipuncture x 1 Dose Magnesium Oxide (Magnesium Oxide 400 Mg Tablet) 400 mg PO DAILY [facility] Stop: 02/27/24 09:14 Last Admin: 03/04/23 09:35 Dose: 400 mg Metoprolol Succinate (Metoprolol Succinate 50 Mg Tab.Er.24h) 50 mg PO DAILY [facility] Stop: 02/23/24 17:14 Last Admin: 03/04/23 09:34 Dose: 50 mg Metoprolol Tartrate (Metoprolol Tartrate 5 Mg/5 Ml Vial) 5 mg IV-PUSH Q4H PRN PRN Reason: Blood Pressure Stop: 02/25/24 13:56 Last Admin: 03/04/23 09:56 Dose: 5 mg Nifedipine (Nifedipine Er.24hr 30 Mg Tab.Er.24) 30 mg PO DAILY [facility] Stop: 03/03/24 08:59 Last Admin: 03/04/23 09:56 Dose: 30 mg Ondansetron HCl (Ondansetron 4 Mg/2 Ml Vial) 4 mg IV Q4HR PRN PRN Reason: NAUSEA AND VOMITING Stop: 02/27/24 22:50 Last Admin: 02/27/23 23:00 Dose: 4 mg Saccharomyces Boulardii (Saccharomyces Boulardii 250 Mg Capsule) 250 mg PO BID.WITH.MEALS [facility] Stop: 02/26/24 17:39 Last Admin: 03/04/23 09:34 Dose: 250 mg Sodium Chloride (Sodium Chloride 0.9 % 10 Ml Syringe) 0 ml IV-PUSH PRN PRN PRN Reason: Flush Stop: 02/23/24 11:41 Last Admin: 03/01/23 06:43 Dose: 10 ml Sodium Chloride (Sodium Chloride 0.9 % 10 Ml Syringe) 0 ml IV-PUSH PRN PRN PRN Reason: Flush Stop: 02/25/24 20:28 Last Admin: 03/02/23 17:09 Dose: 10 ml Sodium Chloride (Sodium Chloride 0.9 % 10 Ml Syringe) 0 ml IV-PUSH PRN PRN PRN Reason: Flush Stop: 03/02/24 08:53 Tramadol HCl (Tramadol 50 Mg Tablet) 50 mg PO Q6H PRN PRN Reason: Pain Stop: 08/22/23 17:06 Last Admin: 03/04/23 09:35 Dose: 50 mg A&P - Infectious Disease Assessment/Plan (1) Diabetic foot infection: Code(s): E11.628 - Type 2 diabetes mellitus with other skin complications; L08.9 - Local infection of the skin and subcutaneous tissue, unspecified Status: Acute (2) Osteomyelitis: Code(s): M86.9 - Osteomyelitis, unspecified Status: Acute Plan Based on the MDRO Pseudomonas he remains in the hospital due to the crossroads of whether or not he needs a PICC line or not. I reached out to Dr. Han who let me know that bone apparently may still be exposed. PICC line therefore was decided upon and he is going to go home on IV cefepime. He will follow-up with me in 3 to 4 weeks time. Weekly labs to be done as ordered. Documented By: Michael Ramírez MD 03/04/23 0959 Signed By: <Electronically signed by MD Michael Ramírez> 03/04/23 [address] [facility] Work Phone: 1(767) 970-934010-09-2023 Progress note Author Orestes Mejia [facility] March 03, 2023 5:32pm Note Date/Time March 03, 2023 5: 32pm [facility] [address] [place] [address] Hospitalist Progress Note Signed Patient: Sudeep Diego JR MR#: [id number] : 1950 Acct:[id number] Age/Sex: 72 / M Adm Date: 3 Loc: 4N Room: 3P9861-2 Type: ADM IN Attending Dr: Orestes Mejia DO Copies to: ~ Date of Service: 03/03/2023 Subjective Subjective Narrative: Seen evaluated bedside, patient lying in bed in no acute distress. Discussed with him his elevated blood pressure, states is usually normal at home. He is agreeable to adding additional antihypertensives. Reviewed with him the plan for PICC line and home health care for antibiotics, patient is agreeable. Exam Physical Exam Vital Signs: Temp Pulse Resp BP Pulse Ox O2 Del Method 97.8 F 62 16 172/86 H 100 Room Air 03/03/23 16:00 03/03/23 16:00 03/03/23 16:00 03/03/23 16:00 03/03/23 16:00 03/03/23 16:00 Narrative: General: Awake alert, no acute distress HEENT: head atraumatic, normocephalic, moist mucous membranes Neck: supple no masses, no lymphadenopathy CVS: regular rate and rhythm, no murmurs or gallops Respiratory: clear to auscultation bilaterally, no wheezing or crackles, symmetric expansion GI: soft, nondistended, nontender, positive bowel sounds with no organomegaly Extremity: moves all extremities, no restrictions of movements, left lower extremity has wound VAC on the lateral aspect of his foot over surgical site, there 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 Neuro: AOx3, CN II-VII intact. Moves all extremities in all planes of motion. Skin: dry, intact no rashes or lesions Objective Lab Results 03/03/23 05:11 03/03/23 05:11 Meds Allergies and Active Meds Allergies lisinopril Allergy (Verified 02/23/23 11:42) Swelling of Lip/Tongue/Throat metformin Adverse Reaction (Verified 02/23/23 11:42) Back Pain Active Meds: Active Medications Generic Name Dose Route Start Last Admin Trade Name Freq PRN Reason Stop Dose Admin Acetaminophen 650 mg 02/26/23 17:36 Acetaminophen 325 Mg Tablet PO 02/26/24 17:35 Q4H PRN Pain Atorvastatin Calcium 40 mg 02/23/23 17:15 03/03/23 09:03 Atorvastatin 40 Mg Tablet PO 02/23/24 17:14 40 mg DAILY [facility] Administration Baclofen 20 mg 02/26/23 19:48 03/02/23 05:10 Baclofen 20 Mg Tablet PO 02/26/24 19:59 20 mg Q8H PRN Administration Muscle Spasm Celecoxib 200 mg 02/24/23 09:00 03/03/23 09:03 Celecoxib 200 Mg Capsule PO 02/24/24 08:59 200 mg DAILY [facility] Administration Clopidogrel Bisulfate 75 mg 02/23/23 17:15 02/26/23 14:37 Clopidogrel Bisulfate 75 Mg Tablet PO 02/23/24 17:14 Not Given DAILY [facility] Dextrose 0 gm 02/24/23 12:17 03/01/23 15:28 Dextrose 50% In Water 25 Gm/50 Ml Syringe IV-PUSH 02/24/24 12:16 25 gm PRN PRN Administration Hypoglycemia Duloxetine HCl 60 mg 02/23/23 17:15 03/03/23 09:03 Duloxetine 60 Mg Capsule.Dr PO 02/23/24 17:14 60 mg DAILY [facility] Administration Enoxaparin Sodium 40 mg 02/24/23 10:00 02/26/23 09:49 Enoxaparin 40 Mg/0.4 Ml Syringe SUBCUT 02/24/24 09:59 Not Given DAILY@10 [facility] Gabapentin 800 mg 02/27/23 21:00 03/03/23 09:03 Gabapentin 800 Mg Tablet PO 02/27/24 20:59 800 mg BID [facility] Administration Glucose 0 gm 02/24/23 12:17 Dextrose 40% Gel 15 Gm Tube PO 02/24/24 12:16 PRN PRN Hypoglycemia Cefepime HCl 2 gm in 50 mls @ 100 mls/hr 03/01/23 17:00 03/03/23 16:43 Maxipime IV 100 mls/hr Q12H [facility] Administration Insulin Aspart 0 units 02/24/23 17:00 03/03/23 16:43 Insulin Aspart 300 Units/3 Ml Insuln.Pen SUBCUT 02/24/24 16:59 3 units TID.AC.HS [facility] Administration Protocol Insulin Glargine 41 units 02/24/23 10:00 03/03/23 09:03 Insulin Glargine 300 Units/3 Ml Insuln.Pen SUBCUT 02/24/24 09:59 21 units BID [facility] Administration Lidocaine HCl 0.1 ml 02/25/23 20:29 Lidocaine 1% 50 Ml Vial INTRADERMA PREOP PRN Venipuncture x 1 Dose Magnesium Oxide 400 mg 02/27/23 09:15 03/03/23 09:03 Magnesium Oxide 400 Mg Tablet PO 02/27/24 09:14 400 mg DAILY [facility] Administration Metoprolol Succinate 50 mg 02/23/23 17:15 03/03/23 09:03 Metoprolol Succinate 50 Mg Tab.Er.24h PO 02/23/24 17:14 50 mg DAILY [facility] Administration Metoprolol Tartrate 5 mg 02/25/23 13:57 03/03/23 15:05 Metoprolol Tartrate 5 Mg/5 Ml Vial IV-PUSH 02/25/24 13:56 5 mg Q4H PRN Administration Blood Pressure Ondansetron HCl 4 mg 02/27/23 22:51 02/27/23 23:00 Ondansetron 4 Mg/2 Ml Vial IV 02/27/24 22:50 4 mg Q4HR PRN Administration NAUSEA AND VOMITING Saccharomyces Boulardii 250 mg 02/26/23 17:40 03/03/23 16:43 Saccharomyces Boulardii 250 Mg Capsule PO 02/26/24 17:39 250 mg BID.WITH.MEALS [facility]AC[facility] Administration Sodium Chloride 0 ml 02/23/23 11:42 03/01/23 06:43 Sodium Chloride 0.9 % 10 Ml Syringe IV-PUSH 02/23/24 11:41 10 ml PRN PRN Administration Flush Sodium Chloride 0 ml 02/25/23 20:29 03/02/23 17:09 Sodium Chloride 0.9 % 10 Ml Syringe IV-PUSH 02/25/24 20:28 10 ml PRN PRN Administration Flush Sodium Chloride 0 ml 03/03/23 08:54 Sodium Chloride 0.9 % 10 Ml Syringe IV-PUSH 03/02/24 08:53 PRN PRN Flush Tramadol HCl 50 mg 02/23/23 17:45 03/03/23 15:05 Tramadol 50 Mg Tablet PO 08/22/23 17:06 50 mg Q6H PRN Administration Pain A&P - Hospitalist Assessment/Plan (1) Diabetic foot infection: (2) 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 Due to exposed bone, will need prolonged antibiotics. ? Order placed for PICC line per ID ?Glucose remains controlled on average with an occasional hypoglycemic episode in the 200s. ?CRP and ESR elevated ? We will add hydralazine for better control of blood pressure I appreciate the input from infectious diseases Continue lovenox 40 mg sc daily for DVT prophylaxis Continue on probiotics to reduce antibiotic associated diarrhea. Continue to cover his hyperglycemia with sliding scale insulin. Recheck the BMP and CBC tomorrow. Continued inpatient hospital stay is required because of ongoing rising creatinine, need for IV fluids today, and waiting on the culture and sensitivityon the Pseudomonas. Documented By: Orestes Mejia DO 03/03/23 1728 Signed By: <Electronically signed by Orestes Mejia DO> 03/03/23 [address] [facility] Work Phone: 1(229) 182-301410-09-2023 Progress note Author Michael Ramírez [facility] March 03, 2023 9:11am Note Date/Time March 03, 2023 9: 09am [facility] [address] [place] [address] Infect. Disease Progress Note Signed Patient: Sudeep Diego JR MR#: [id number] : 1950 Acct:[id number] Age/Sex: 72 / M Adm Date: 3 Loc: 4N Room: [address] [place] [address] Type: ADM IN Attending Dr: Orestes Mejia DO Copies to: ~ Date of Service: 03/03/2023 Subjective Interval history: Patient is doing well and over the weekend states his diarrhea has improved. Wewill switch to cefepime based on Pseudomonas final culture and susceptibility return. He is now on contact isolation due to his MDRO Pseudomonas. Exam Physical Exam Vital Signs: Temp Pulse Resp BP Pulse Ox O2 Del Method 98.4 F 60 16 188/88 H 97 Room Air 03/03/23 07:45 03/03/23 07:45 03/03/23 07:45 03/03/23 07:45 03/03/23 07:45 03/03/23 07:45 Const General: cooperative, comfortable and no acute distress Orientation: alert, awake and oriented x3 HEENT Head: normal to inspection Ears: hearing grossly normal bilaterally Nose: external nose normal Eyes General: appearance normal, both eyes and all related structures Neck Neck: normal visual inspection Resp Effort & Inspection: normal respiratory effort and able to speak in complete sentences Auscultation: clear to auscultation bilaterally, no rales, no rhonchi and no wheezes Cardio Rate: regular rate Rhythm: regular rhythm GI Inspection: non-distended Palpation: soft, no hepatosplenomegaly, no guarding and nontender Neuro General: patient alert, patient awake and patient oriented x3 Cognition: normal cognition Speech: speech normal Extrem General: no clubbing, cyanosis or edema Psych Appearance: grossly normal Mood: congruent mood Affect: normal affect Objective Labs CBC/BMP: CBC, BMP 03/03/23 03/03/23 05:11 05:11 Corrected WBC 12.4 H Uncorrected WBC Count 12.4 H RBC 3.46 L Hgb 10.4 L Hct 30.7 L Plt Count 324 Sodium 139 Potassium 4.6 Chloride 103 Carbon Dioxide 31.2 H Anion Gap 9.4 BUN 23 Creatinine 1.38 H Calcium 8.7 Labs: 03/03/23 05:11 BUN 23 Creatinine 1.38 H Microbiology Microbiology: Microbiology - Results from entire visit 02/26/23 11:34 Toe,Left Fifth - Other Aerobic Culture - Final Pseudomonas aeruginosa (MDRO) 02/26/23 11:34 Toe,Left Fifth - Other Anaerobic Culture - Final No Anaerobes Isolated 3 Days 02/26/23 11:34 Toe,Left Fifth - Other Gram Stain - Final 02/23/23 12:05 Blood - Left Hand Blood Culture - Final NO GROWTH 5 DAYS 02/23/23 12:07 Blood - Left Forearm Blood Culture - Final NO GROWTH 5 DAYS Allergies and Medications Allergies and Active Meds Allergies lisinopril Allergy (Verified 02/23/23 11:42) Swelling of Lip/Tongue/Throat metformin Adverse Reaction (Verified 02/23/23 11:42) Back Pain Active Medications Acetaminophen (Acetaminophen 325 Mg Tablet) 650 mg PO Q4H PRN PRN Reason: Pain Stop: 02/26/24 17:35 Atorvastatin Calcium (Atorvastatin 40 Mg Tablet) 40 mg PO DAILY KACI Stop: 02/23/24 17:14 Last Admin: 03/02/23 09:37 Dose: 40 mg Baclofen (Baclofen 20 Mg Tablet) 20 mg PO Q8H PRN PRN Reason: Muscle Spasm Stop: 02/26/24 19:59 Last Admin: 03/02/23 05:10 Dose: 20 mg Celecoxib (Celecoxib 200 Mg Capsule) 200 mg PO DAILY KACI Stop: 02/24/24 08:59 Last Admin: 03/02/23 09:37 Dose: 200 mg Clopidogrel Bisulfate (Clopidogrel Bisulfate 75 Mg Tablet) 75 mg PO DAILY KACI Stop: 02/23/24 17:14 Last Admin: 02/26/23 14:37 Dose: Not Given Dextrose (Dextrose 50% In Water 25 Gm/50 Ml Syringe) 0 gm IV-PUSH PRN PRN PRN Reason: Hypoglycemia Stop: 02/24/24 12:16 Last Admin: 03/01/23 15:28 Dose: 25 gm Duloxetine HCl (Duloxetine 60 Mg Capsule.Dr) 60 mg PO DAILY [facility] Stop: 02/23/24 17:14 Last Admin: 03/02/23 09:37 Dose: 60 mg Enoxaparin Sodium (Enoxaparin 40 Mg/0.4 Ml Syringe) 40 mg SUBCUT DAILY@10 [facility] Stop: 02/24/24 09:59 Last Admin: 02/26/23 09:49 Dose: Not Given Gabapentin (Gabapentin 800 Mg Tablet) 800 mg PO BID [facility] Stop: 02/27/24 20:59 Last Admin: 03/02/23 21:37 Dose: 800 mg Glucose (Dextrose 40% Gel 15 Gm Tube) 0 gm PO PRN PRN PRN Reason: Hypoglycemia Stop: 02/24/24 12:16 Cefepime HCl (Maxipime) 2 gm in 50 mls @ 100 mls/hr IV Q12H [facility] Last Admin: 03/03/23 05:26 Dose: 100 mls/hr Insulin Aspart (Insulin Aspart 300 Units/3 Ml Insuln.Pen) 0 units SUBCUT TID.AC.[facility]; Protocol Stop: 02/24/24 16:59 Last Admin: 03/03/23 08:00 Dose: Not Given Insulin Glargine (Insulin Glargine 300 Units/3 Ml Insuln.Pen) 41 units SUBCUT BID [facility] Stop: 02/24/24 09:59 Last Admin: 03/02/23 21:39 Dose: 21 units Lidocaine HCl (Lidocaine 1% 50 Ml Vial) 0.1 ml INTRADERMA PREOP PRN PRN Reason: Venipuncture x 1 Dose Magnesium Oxide (Magnesium Oxide 400 Mg Tablet) 400 mg PO DAILY [facility] Stop: 02/27/24 09:14 Last Admin: 03/02/23 09:37 Dose: 400 mg Metoprolol Succinate (Metoprolol Succinate 50 Mg Tab.Er.24h) 50 mg PO DAILY [facility] Stop: 02/23/24 17:14 Last Admin: 03/02/23 09:37 Dose: 50 mg Metoprolol Tartrate (Metoprolol Tartrate 5 Mg/5 Ml Vial) 5 mg IV-PUSH Q4H PRN PRN Reason: Blood Pressure Stop: 02/25/24 13:56 Last Admin: 03/02/23 17:08 Dose: 5 mg Ondansetron HCl (Ondansetron 4 Mg/2 Ml Vial) 4 mg IV Q4HR PRN PRN Reason: NAUSEA AND VOMITING Stop: 02/27/24 22:50 Last Admin: 02/27/23 23:00 Dose: 4 mg Saccharomyces Boulardii (Saccharomyces Boulardii 250 Mg Capsule) 250 mg PO BID.WITH.MEALS KACI Stop: 02/26/24 17:39 Last Admin: 03/02/23 17:09 Dose: 250 mg Sodium Chloride (Sodium Chloride 0.9 % 10 Ml Syringe) 0 ml IV-PUSH PRN PRN PRN Reason: Flush Stop: 02/23/24 11:41 Last Admin: 03/01/23 06:43 Dose: 10 ml Sodium Chloride (Sodium Chloride 0.9 % 10 Ml Syringe) 0 ml IV-PUSH PRN PRN PRN Reason: Flush Stop: 02/25/24 20:28 Last Admin: 03/02/23 17:09 Dose: 10 ml Sodium Chloride (Sodium Chloride 0.9 % 10 Ml Syringe) 0 ml IV-PUSH PRN PRN PRN Reason: Flush Stop: 03/02/24 08:53 Tramadol HCl (Tramadol 50 Mg Tablet) 50 mg PO Q6H PRN PRN Reason: Pain Stop: 08/22/23 17:06 Last Admin: 03/02/23 17:34 Dose: 50 mg A&P - Infectious Disease Assessment/Plan (1) Diabetic foot infection: Code(s): E11.628 - Type 2 diabetes mellitus with other skin complications; L08.9 - Local infection of the skin and subcutaneous tissue, unspecified Status: Acute (2) Osteomyelitis: Code(s): M86.9 - Osteomyelitis, unspecified Status: Acute Plan 7 was planning a short course of antibiotics based on the thought process that that infected bone was excised. Based on the MDRO Pseudomonas he remains in thehospital due to the crossroads of whether or not he needs a PICC line or not. Ireached out to Dr. Han who let me know that bone apparently may still be exposed. Given this may need to adjust thought process of lenght of Rx. PICC will be placed and Cefepime to be maintained now at home. Will check CRP/ESR and if elevated we will monitor these. We will check weekly creatinine while oncefepime. Documented By: Michael Ramírez MD 03/03/23907 Signed By: <Electronically signed by MD Michael Ramírez> 03/03/23910 [facility] Work Phone: [phone] 230-340010-08-2023 Progress note Author Eulogio Ruvalcaba [facility] March 02, 2023 6:37pm Note Date/Time March 02, 2023 6: 31pm [facility] [address] [place] [address] Hospitalist Progress Note Signed Patient: Sudeep Diego JR MR#: [id number] : 1950 Acct:[id number] Age/Sex: 72 / M Adm Date: 3 Loc: 4N Room: [address] [place] [address] Type: ADM IN Attending Dr: Eulogio Ruvalcaba MD Copies to: ~ Date of Service: 03/02/2023 Subjective Subjective Narrative: 03/02/2023 Patient was sitting up at the side of the bed. He did not have any fever or chills. His blood sugar is somewhat well controlled. 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 Patient possibly will need PICC for longer antibiotic therapy. He will be evaluated by infectious disease tomorrow to make a final call on home-going antibiotic. 03/01/2023 Patient today had abdominal bloating and gassy sensation. He did not take his lunch well. However his insulin was given. He became little bit hypoglycemic which was recovered later with the apple juice. His blood sugar dropped to 65 mg per DL. Wound culture has been Published he has multidrug-resistant Pseudomonas infection. He does not have any oral option. 02/28/2023 Earlier today in the morning podiatry did place a wound VAC on the operative site on his left foot. When I come into the patient's room he has his foot elevated. The wound VAC is on. It looks to be in excellent condition. The patient is talking to his phoneon to his . His says that she is a surgical operating nurse so she has healthcare background. I explained that although the patient had hoped to go home today because the bacteria grew Pseudomonas we need to wait for the culture and sensitivities which could hopefully be tomorrow. Ideally he would be able to take oral Cipro or Levaquin for this. I did caution both the patientand the over the telephone that it is possible that Pseudomonas might be sensitive only to IV antibiotics so if that happens tomorrow then some decision making will need to be undertaken. The seems to have a concept of home IV antibiotic infusion services. The rest of their questions were answered. In the middle the night the patient had some vomiting. He says he could tell that he was fine admitting some stomach acid but not bile. He denies abdominal pain. He says that he had 2 blowouts of diarrhea yesterday. He is not having any cramping. He says his appetite is good. He feels like he is drinking liquids and taking pills without any difficulty. No other active symptoms: No pain in the foot which is typical for his severe diabetic polyneuropathy. No fevers or chills. No headache or lightheadedness. No chest pain or palpitations. No cough or expectoration of any sputum. Of note the patient's creatinine has risen over last 4 days from 1.94 up to 1.531.65 and then up to 1.73 today. Because there is no MRSA the infectious diseases specialist has declared that the IV vancomycin is now discontinued. Heremains on IV Zosyn. Exam Physical Exam Vital Signs: Temp Pulse Resp BP Pulse Ox O2 Del Method 97.9 F 64 14 171/84 H 100 Room Air 03/02/23 16:04 03/02/23 16:04 03/02/23 16:04 03/02/23 16:04 03/02/23 16:04 03/02/23 11:31 Objective Lab Results 03/02/23 05:31 03/02/23 05:31 Meds Allergies and Active Meds Allergies lisinopril Allergy (Verified 02/23/23 11:42) Swelling of Lip/Tongue/Throat metformin Adverse Reaction (Verified 02/23/23 11:42) Back Pain Active Meds: Active Medications Generic Name Dose Route Start Last Admin Trade Name Freq PRN Reason Stop Dose Admin Acetaminophen 650 mg 02/26/23 17:36 Acetaminophen 325 Mg Tablet PO 02/26/24 17:35 Q4H PRN Pain Atorvastatin Calcium 40 mg 02/23/23 17:15 10/08/23 09:37 Atorvastatin 40 Mg Tablet PO 02/23/24 17:14 40 mg DAILY KACI Administration Baclofen 20 mg 02/26/23 19:48 03/02/23 05:10 Baclofen 20 Mg Tablet PO 02/26/24 19:59 20 mg Q8H PRN Administration Muscle Spasm Celecoxib 200 mg 02/24/23 09:00 03/02/23 09:37 Celecoxib 200 Mg Capsule PO 02/24/24 08:59 200 mg DAILY KACI Administration Clopidogrel Bisulfate 75 mg 02/23/23 17:15 02/26/23 14:37 Clopidogrel Bisulfate 75 Mg Tablet PO 02/23/24 17:14 Not Given DAILY KACI Dextrose 0 gm 02/24/23 12:17 03/01/23 15:28 Dextrose 50% In Water 25 Gm/50 Ml Syringe IV-PUSH 02/24/24 12:16 25 gm PRN PRN Administration Hypoglycemia Duloxetine HCl 60 mg 02/23/23 17:15 03/02/23 09:37 Duloxetine 60 Mg Capsule. PO 02/23/24 17:14 60 mg DAILY KACI Administration Enoxaparin Sodium 40 mg 02/24/23 10:00 02/26/23 09:49 Enoxaparin 40 Mg/0.4 Ml Syringe SUBCUT 02/24/24 09:59 Not Given DAILY@10 KACI Gabapentin 800 mg 02/27/23 21:00 03/02/23 09:37 Gabapentin 800 Mg Tablet PO 02/27/24 20:59 800 mg BID KACI Administration Glucose 0 gm 02/24/23 12:17 Dextrose 40% Gel 15 Gm Tube PO 02/24/24 12:16 PRN PRN Hypoglycemia Cefepime HCl 2 gm in 50 mls @ 100 mls/hr 03/01/23 17:00 03/02/23 17:09 Maxipime IV 100 mls/hr Q12H KACI Administration Insulin Aspart 0 units 02/24/23 17:00 03/02/23 17:20 Insulin Aspart 300 Units/3 Ml Insuln.Pen SUBCUT 02/24/24 16:59 Not Given TID.AC.HS [facility] Protocol Insulin Glargine 41 units 02/24/23 10:00 03/02/23 09:38 Insulin Glargine 300 Units/3 Ml Insuln.Pen SUBCUT 02/24/24 09:59 41 units BID KACI Administration Lidocaine HCl 0.1 ml 02/25/23 20:29 Lidocaine 1% 50 Ml Vial INTRADERMA PREOP PRN Venipuncture x 1 Dose Magnesium Oxide 400 mg 02/27/23 09:15 03/02/23 09:37 Magnesium Oxide 400 Mg Tablet PO 02/27/24 09:14 400 mg DAILY KACI Administration Metoprolol Succinate 50 mg 02/23/23 17:15 03/02/23 09:37 Metoprolol Succinate 50 Mg Tab.Er.24h PO 02/23/24 17:14 50 mg DAILY KACI Administration Metoprolol Tartrate 5 mg 02/25/23 13:57 03/02/23 17:08 Metoprolol Tartrate 5 Mg/5 Ml Vial IV-PUSH 02/25/24 13:56 5 mg Q4H PRN Administration Blood Pressure Ondansetron HCl 4 mg 02/27/23 22:51 02/27/23 23:00 Ondansetron 4 Mg/2 Ml Vial IV 02/27/24 22:50 4 mg Q4HR PRN Administration NAUSEA AND VOMITING Saccharomyces Boulardii 250 mg 02/26/23 17:40 03/02/23 17:09 Saccharomyces Boulardii 250 Mg Capsule PO 02/26/24 17:39 250 mg BID.WITH.MEALS KACI Administration Sodium Chloride 0 ml 02/23/23 11:42 03/01/23 06:43 Sodium Chloride 0.9 % 10 Ml Syringe IV-PUSH 02/23/24 11:41 10 ml PRN PRN Administration Flush Sodium Chloride 0 ml 02/25/23 20:29 03/02/23 17:09 Sodium Chloride 0.9 % 10 Ml Syringe IV-PUSH 02/25/24 20:28 10 ml PRN PRN Administration Flush Tramadol HCl 50 mg 02/23/23 17:45 03/02/23 17:34 Tramadol 50 Mg Tablet PO 08/22/23 17:06 50 mg Q6H PRN Administration Pain A&P - Hospitalist Assessment/Plan (1) Diabetic foot infection: (2) 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 Culture grew Pseudomonas. It is resistant to ciprofloxacin and levofloxacin. Diabetes mellitus type 2. A1c is fair and its control but could be better with A1c of 7.2 Hypertension. Plan: Antibiotic has been switched to cefepime. Patient may need PICC for longer duration. Since the Pseudomonas is not susceptible to Cipro or levofloxacin I appreciate the input from infectious diseases Continue lovenox 40 mg sc daily for DVT prophylaxis Continue on probiotics to reduce antibiotic associated diarrhea. Continue to cover his hyperglycemia with sliding scale insulin. Recheck the BMP and CBC tomorrow. Continued inpatient hospital stay is required because of ongoing rising creatinine, need for IV fluids today, and waiting on the culture and sensitivityon the Pseudomonas. Documented By: Eulogio Ruvalcaba MD 03/02/231827 Signed By: <Electronically signed by Eulogio Ruvalcaba MD> 03/02/23 042 [facility] Work Phone: [phone] 446-679110-07-2023 Progress note Author Eulogio Ruvalcaba [facility] March 01, 2023 6:17pm Note Date/Time March 01, 2023 6: 13pm [facility] [address] [place] [address] Hospitalist Progress Note Signed Patient: Sudeep Diego JR MR#: [id number] : 1950 Acct:[id number] Age/Sex: 72 / M Adm Date: 3 Loc: Room: [address] [place] [address] Type: ADM IN Attending Dr: Eulogio Ruvalcaba MD Copies to: ~ Date of Service: 03/01/2023 Subjective Subjective Narrative: Patient today had abdominal bloating and gassy sensation. He did not take his lunch well. However his insulin was given. He became little bit hypoglycemic which was recovered later with the apple juice. His blood sugar dropped to 65 mg per DL. Wound culture has been Published he has multidrug-resistant Pseudomonas infection. He does not have any oral option. 02/28/2023 Earlier today in the morning podiatry did place a wound VAC on the operative site on his left foot. When I come into the patient's room he has his foot elevated. The wound VAC is on. It looks to be in excellent condition. The patient is talking to his phoneon to his . His says that she is a surgical operating nurse so she has healthcare background. I explained that although the patient had hoped to go home today because the bacteria grew Pseudomonas we need to wait for the culture and sensitivities which could hopefully be tomorrow. Ideally he would be able to take oral Cipro or Levaquin for this. I did caution both the patientand the over the telephone that it is possible that Pseudomonas might be sensitive only to IV antibiotics so if that happens tomorrow then some decision making will need to be undertaken. The seems to have a concept of home IV antibiotic infusion services. The rest of their questions were answered. In the middle the night the patient had some vomiting. He says he could tell that he was fine admitting some stomach acid but not bile. He denies abdominal pain. He says that he had 2 blowouts of diarrhea yesterday. He is not having any cramping. He says his appetite is good. He feels like he is drinking liquids and taking pills without any difficulty. No other active symptoms: No pain in the foot which is typical for his severe diabetic polyneuropathy. No fevers or chills. No headache or lightheadedness. No chest pain or palpitations. No cough or expectoration of any sputum. Of note the patient's creatinine has risen over last 4 days from 1.94 up to 1.531.65 and then up to 1.73 today. Because there is no MRSA the infectious diseases specialist has declared that the IV vancomycin is now discontinued. Heremains on IV Zosyn. Exam Physical Exam Vital Signs: Temp Pulse Resp BP Pulse Ox O2 Del Method 97.9 F 63 16 169/87 H 99 Room Air 03/01/23 16:00 03/01/23 16:00 03/01/23 16:00 03/01/23 16:00 03/01/23 16:00 03/01/23 16:00 Objective Lab Results 03/01/23 09:35 03/01/23 09:35 Microbiology Results Microbiology 02/26/23 11:34 Toe,Left Fifth - Other Aerobic Culture - Final Pseudomonas aeruginosa (MDRO) 02/26/23 11:34 Toe,Left Fifth - Other Anaerobic Culture - Final No Anaerobes Isolated 3 Days 02/26/23 11:34 Toe,Left Fifth - Other Gram Stain - Final Meds Allergies and Active Meds Allergies lisinopril Allergy (Verified 02/23/23 11:42) Swelling of Lip/Tongue/Throat metformin Adverse Reaction (Verified 02/23/23 11:42) Back Pain Active Meds: Active Medications Generic Name Dose Route Start Last Admin Trade Name Freq PRN Reason Stop Dose Admin Acetaminophen 650 mg 02/26/23 17:36 Acetaminophen 325 Mg Tablet PO 02/26/24 17:35 Q4H PRN Pain Atorvastatin Calcium 40 mg 02/23/23 17:15 03/01/23 08:50 Atorvastatin 40 Mg Tablet PO 02/23/24 17:14 40 mg DAILY KACI Administration Baclofen 20 mg 02/26/23 19:48 03/01/23 12:59 Baclofen 20 Mg Tablet PO 02/26/24 19:59 20 mg Q8H PRN Administration Muscle Spasm Celecoxib 200 mg 02/24/23 09:00 03/01/23 08:50 Celecoxib 200 Mg Capsule PO 02/24/24 08:59 200 mg DAILY KACI Administration Clopidogrel Bisulfate 75 mg 02/23/23 17:15 02/26/23 14:37 Clopidogrel Bisulfate 75 Mg Tablet PO 02/23/24 17:14 Not Given DAILY KACI Dextrose 0 gm 02/24/23 12:17 03/01/23 15:28 Dextrose 50% In Water 25 Gm/50 Ml Syringe IV-PUSH 02/24/24 12:16 25 gm PRN PRN Administration Hypoglycemia Duloxetine HCl 60 mg 02/23/23 17:15 03/01/23 08:50 Duloxetine 60 Mg Capsule. PO 02/23/24 17:14 60 mg DAILY KACI Administration Enoxaparin Sodium 40 mg 02/24/23 10:00 02/26/23 09:49 Enoxaparin 40 Mg/0.4 Ml Syringe SUBCUT 02/24/24 09:59 Not Given DAILY@10 KACI Gabapentin 800 mg 02/27/23 21:00 03/01/23 08:50 Gabapentin 800 Mg Tablet PO 02/27/24 20:59 800 mg BID KACI Administration Glucose 0 gm 02/24/23 12:17 Dextrose 40% Gel 15 Gm Tube PO 02/24/24 12:16 PRN PRN Hypoglycemia Cefepime HCl 2 gm in 50 mls @ 100 mls/hr 10/07/23 17:00 03/01/23 17:34 Maxipime IV 100 mls/hr Q12H KACI Administration Insulin Aspart 0 units 02/24/23 17:00 03/01/23 17:34 Insulin Aspart 300 Units/3 Ml Insuln.Pen SUBCUT 02/24/24 16:59 Not Given TID.AC.HS [facility] Protocol Insulin Glargine 41 units 02/24/23 10:00 03/01/23 08:51 Insulin Glargine 300 Units/3 Ml Insuln.Pen SUBCUT 02/24/24 09:59 41 units BID KACI Administration Lidocaine HCl 0.1 ml 02/25/23 20:29 Lidocaine 1% 50 Ml Vial INTRADERMA PREOP PRN Venipuncture x 1 Dose Magnesium Oxide 400 mg 02/27/23 09:15 03/01/23 08:50 Magnesium Oxide 400 Mg Tablet PO 02/27/24 09:14 400 mg DAILY KACI Administration Metoprolol Succinate 50 mg 02/23/23 17:15 03/01/23 08:50 Metoprolol Succinate 50 Mg Tab.Er.24h PO 02/23/24 17:14 50 mg DAILY KACI Administration Metoprolol Tartrate 5 mg 02/25/23 13:57 03/01/23 15:42 Metoprolol Tartrate 5 Mg/5 Ml Vial IV-PUSH 02/25/24 13:56 5 mg Q4H PRN Administration Blood Pressure Ondansetron HCl 4 mg 02/27/23 22:51 02/27/23 23:00 Ondansetron 4 Mg/2 Ml Vial IV 02/27/24 22:50 4 mg Q4HR PRN Administration NAUSEA AND VOMITING Saccharomyces Boulardii 250 mg 02/26/23 17:40 03/01/23 17:34 Saccharomyces Boulardii 250 Mg Capsule PO 02/26/24 17:39 250 mg BID.WITH.MEALS KACI Administration Sodium Chloride 0 ml 02/23/23 11:42 03/01/23 06:43 Sodium Chloride 0.9 % 10 Ml Syringe IV-PUSH 02/23/24 11:41 10 ml PRN PRN Administration Flush Sodium Chloride 0 ml 02/25/23 20:29 Sodium Chloride 0.9 % 10 Ml Syringe IV-PUSH 02/25/24 20:28 PRN PRN Flush Tramadol HCl 50 mg 02/23/23 17:45 02/27/23 15:32 Tramadol 50 Mg Tablet PO 08/22/23 17:06 50 mg Q6H PRN Administration Pain A&P - Hospitalist Assessment/Plan (1) Diabetic foot infection: (2) Diabetes mellitus due to underlying condition with diabetic neuropathy, unspecified: (3) Osteomyelitis: (4) PAD (peripheral artery disease): (5) Hypertension: (6) Sciatica, left side: (7) Pseudomonas infection: (8) Diarrhea: (9) Vomiting: Plan Assessment: 03/01/2023 Diabetic foot infection Osteomyelitis of the left distal phalanges and distal metatarsal. Culture grew Pseudomonas. It is resistant to ciprofloxacin and levofloxacin. Diabetes mellitus type 2. A1c is fair and its control but could be better with A1c of 7.2 Hypertension. Chronic low back pain which is now cause exacerbation of sciatica of the left side due to difficulty positioning himself in bed.. In-hospital development of antibiotic associated diarrhea. Overnight issue with vomiting. I think this is just a viral gastrointestinal syndrome. I do not get the sense that he has an acute new gastrointestinal problem going on. Plan: Antibiotic has been switched to cefepime. Patient will need PICC I appreciate the consult from podiatry. I appreciate the input from infectious diseases Continue lovenox 40 mg sc daily for DVT prophylaxis Continue on probiotics to reduce antibiotic associated diarrhea. Continue close monitoring for development of worsening diarrhea or return of vomiting. Continue to cover his hyperglycemia with sliding scale insulin. Recheck the BMP and CBC tomorrow. Continued inpatient hospital stay is required because of ongoing rising creatinine, need for IV fluids today, and waiting on the culture and sensitivityon the Pseudomonas. Documented By: Eulogio Ruvalcaba MD 03/01/231810 Signed By: <Electronically signed by Eulogio Ruvalcaba MD> 03/01/231816 [facility] Work Phone: [phone]) 479-273410-06-2023 Progress note Author Geo Thomas [facility] February 28, 2023 12:46pm Note Date/Time February 28, 2023 12 :46pm [facility] [address] [place] [address] Hospitalist Progress Note Signed Patient: Sudeep Diego JR MR#: [id number] : 1950 Acct:[id number] Age/Sex: 72 / M Adm Date: 3 Loc: 4N Room: 6I3920-0 Type: ADM IN Attending Dr: Geo Thomas DO Copies to: ~ Date of Service: 02/28/2023 Subjective Subjective Narrative: Earlier today in the morning podiatry did place a wound VAC on the operative site on his left foot. When I come into the patient's room he has his foot elevated. The wound VAC is on. It looks to be in excellent condition. The patient is talking to his phoneon to his . His says that she is a surgical operating nurse so she has healthcare background. I explained that although the patient had hoped to go home today because the bacteria grew Pseudomonas we need to wait for the culture and sensitivities which could hopefully be tomorrow. Ideally he would be able to take oral Cipro or Levaquin for this. I did caution both the patientand the over the telephone that it is possible that Pseudomonas might be sensitive only to IV antibiotics so if that happens tomorrow then some decision making will need to be undertaken. The seems to have a concept of home IV antibiotic infusion services. The rest of their questions were answered. In the middle the night the patient had some vomiting. He says he could tell that he was fine admitting some stomach acid but not bile. He denies abdominal pain. He says that he had 2 blowouts of diarrhea yesterday. He is not having any cramping. He says his appetite is good. He feels like he is drinking liquids and taking pills without any difficulty. No other active symptoms: No pain in the foot which is typical for his severe diabetic polyneuropathy. No fevers or chills. No headache or lightheadedness. No chest pain or palpitations. No cough or expectoration of any sputum. Of note the patient's creatinine has risen over last 4 days from 1.94 up to 1.531.65 and then up to 1.73 today. Because there is no MRSA the infectious diseases specialist has declared that the IV vancomycin is now discontinued. Heremains on IV Zosyn. Exam Physical Exam Vital Signs: Temp Pulse Resp BP Pulse Ox O2 Del Method 98.2 F 69 12 164/78 H 99 Room Air 02/28/23 11:58 02/28/23 11:58 02/28/23 11:58 02/28/23 11:58 02/28/23 11:58 02/28/23 11:58 Narrative: General: Seated upright in bed. Awake. Alert. Oriented x3. Pulmonary: Clear to auscultation throughout. No wheezing. No rhonchi. No crackles. Cardiac: Regular rate and rhythm. No rubs or gallops to auscultation. GI: Abdomen soft, nontender to palpation, with normal bowel sounds auscultation. Extremities: Left foot is is exposed. The wound VAC is in excellent condition. No leakage. No drainage. Only area around the wound VAC looks excellent. He has no pain in the site. The skin on his legs is normal with no active cellulitis and no more reactive warmth or edema. Right leg is normal. No edema in the ankle. No swelling or knots or cords in the calves bilaterally. Objective Lab Results 02/28/23 05:16 02/28/23 05:16 Microbiology Results Microbiology 02/23/23 12:05 Blood - Left Hand Blood Culture - Final NO GROWTH 5 DAYS 02/23/23 12:07 Blood - Left Forearm Blood Culture - Final NO GROWTH 5 DAYS 02/26/23 11:34 Toe,Left Fifth - Other Aerobic Culture - Preliminary Pseudomonas aeruginosa 02/26/23 11:34 Toe,Left Fifth - Other Anaerobic Culture - Preliminary No Anaerobes Isolated 2 Days 02/26/23 11:34 Toe,Left Fifth - Other Gram Stain - Final Meds Allergies and Active Meds Allergies lisinopril Allergy (Verified 02/23/23 11:42) Swelling of Lip/Tongue/Throat metformin Adverse Reaction (Verified 02/23/23 11:42) Back Pain Active Meds: Active Medications Generic Name Dose Route Start Last Admin Trade Name Freq PRN Reason Stop Dose Admin Acetaminophen 650 mg 02/26/23 17:36 Acetaminophen 325 Mg Tablet PO 02/26/24 17:35 Q4H PRN Pain Atorvastatin Calcium 40 mg 02/23/23 17:15 02/28/23 08:04 Atorvastatin 40 Mg Tablet PO 02/23/24 17:14 40 mg DAILY KACI Administration Baclofen 20 mg 02/26/23 19:48 02/27/23 07:59 Baclofen 20 Mg Tablet PO 02/26/24 19:59 20 mg Q8H PRN Administration Muscle Spasm Celecoxib 200 mg 02/24/23 09:00 02/28/23 08:04 Celecoxib 200 Mg Capsule PO 02/24/24 08:59 200 mg DAILY KACI Administration Clopidogrel Bisulfate 75 mg 02/23/23 17:15 02/26/23 14:37 Clopidogrel Bisulfate 75 Mg Tablet PO 02/23/24 17:14 Not Given DAILY KACI Dextrose 0 gm 02/24/23 12:17 Dextrose 50% In Water 25 Gm/50 Ml Syringe IV-PUSH 02/24/24 12:16 PRN PRN Hypoglycemia Duloxetine HCl 60 mg 02/23/23 17:15 02/28/23 08:05 Duloxetine 60 Mg Capsule. PO 02/23/24 17:14 60 mg DAILY KACI Administration Enoxaparin Sodium 40 mg 02/24/23 10:00 02/26/23 09:49 Enoxaparin 40 Mg/0.4 Ml Syringe SUBCUT 02/24/24 09:59 Not Given DAILY@10 KACI Gabapentin 800 mg 02/27/23 21:00 02/28/23 08:04 Gabapentin 800 Mg Tablet PO 02/27/24 20:59 800 mg BID KACI Administration Glucose 0 gm 02/24/23 12:17 Dextrose 40% Gel 15 Gm Tube PO 02/24/24 12:16 PRN PRN Hypoglycemia Piperacillin Sod/Tazobactam Sod 3.375 gm in 100 mls @ 200 mls/hr 02/23/23 20:30 02/28/23 08:04 Zosyn IV 200 mls/hr Q6H KACI Administration Insulin Aspart 0 units 02/24/23 17:00 02/28/23 12:19 Insulin Aspart 300 Units/3 Ml Insuln.Pen SUBCUT 02/24/24 16:59 3 units TID.AC.HS KACI Administration Protocol Insulin Glargine 41 units 02/24/23 10:00 02/28/23 08:05 Insulin Glargine 300 Units/3 Ml Insuln.Pen SUBCUT 02/24/24 09:59 41 units BID KACI Administration Lidocaine HCl 0.1 ml 02/25/23 20:29 Lidocaine 1% 50 Ml Vial INTRADERMA PREOP PRN Venipuncture x 1 Dose Magnesium Oxide 400 mg 02/27/23 09:15 02/28/23 08:05 Magnesium Oxide 400 Mg Tablet PO 02/27/24 09:14 400 mg DAILY KACI Administration Metoprolol Succinate 50 mg 02/23/23 17:15 02/28/23 08:04 Metoprolol Succinate 50 Mg Tab.Er.24h PO 02/23/24 17:14 50 mg DAILY KACI Administration Metoprolol Tartrate 5 mg 02/25/23 13:57 02/26/23 05:12 Metoprolol Tartrate 5 Mg/5 Ml Vial IV-PUSH 02/25/24 13:56 5 mg Q4H PRN Administration Blood Pressure Ondansetron HCl 4 mg 02/27/23 22:51 02/27/23 23:00 Ondansetron 4 Mg/2 Ml Vial IV 02/27/24 22:50 4 mg Q4HR PRN Administration NAUSEA AND VOMITING Saccharomyces Boulardii 250 mg 02/26/23 17:40 02/28/23 08:05 Saccharomyces Boulardii 250 Mg Capsule PO 02/26/24 17:39 250 mg BID.WITH.MEALS KACI Administration Sodium Chloride 0 ml 02/23/23 11:42 02/28/23 02:29 Sodium Chloride 0.9 % 10 Ml Syringe IV-PUSH 02/23/24 11:41 10 ml PRN PRN Administration Flush Sodium Chloride 0 ml 02/25/23 20:29 Sodium Chloride 0.9 % 10 Ml Syringe IV-PUSH 02/25/24 20:28 PRN PRN Flush Tramadol HCl 50 mg 02/23/23 17:45 02/27/23 15:32 Tramadol 50 Mg Tablet PO 08/22/23 17:06 50 mg Q6H PRN Administration Pain A&P - Hospitalist Assessment/Plan (1) Diabetic foot infection: (2) Diabetes mellitus due to underlying condition with diabetic neuropathy, unspecified: (3) Osteomyelitis: (4) PAD (peripheral artery disease): (5) Hypertension: (6) Sciatica, left side: (7) Pseudomonas infection: (8) Diarrhea: (9) Vomiting: Plan Assessment: Diabetic foot infection Osteomyelitis of the left distal phalanges and distal metatarsal. Intraoperative culture is now growing a Pseudomonas species. Diabetes mellitus type 2. A1c is fair and its control but could be better with A1c of 7.2 Hypertension. Chronic low back pain which is now cause exacerbation of sciatica of the left side due to difficulty positioning himself in bed.. In-hospital development of antibiotic associated diarrhea. Overnight issue with vomiting. I think this is just a viral gastrointestinal syndrome. I do not get the sense that he has an acute new gastrointestinal problem going on. Plan: IV vancomycin is stopped. Continue the IV Zosyn until culture and sensitivities on the Pseudomonas are completed. I appreciate the consult from podiatry. Podiatry has signed off today. I appreciate the input from infectious diseases Continue lovenox 40 mg sc daily for DVT prophylaxis Continue on probiotics to reduce antibiotic associated diarrhea. Continue close monitoring for development of worsening diarrhea or return of vomiting. Continue to cover his hyperglycemia with sliding scale insulin. We will provide 1 L of IV fluids of lactated Ringer's today and recheck the BMP and CBC tomorrow. Continued inpatient hospital stay is required because of ongoing rising creatinine, need for IV fluids today, and waiting on the culture and sensitivityon the Pseudomonas. Documented By: Geo Thomas DO [id number] Signed By: <Electronically signed by Geo Thomas DO> 02/28/23 1246 [facility] Work Phone: [phone] 753-160410-06-2023 Progress note Author Michael Ramírez [facility] February 28, 2023 11:51am Note Date/Time February 28, 2023 9: 04am [facility] [address] [place] [address] Infect. Disease Progress Note Signed Patient: Sudeep Diego JR MR#: [id number] : 1950 Acct:[id number] Age/Sex: 72 / M Adm Date: 3 Loc: 4N Room: [address] [place] [address] Type: ADM IN Attending Dr: Geo Thomas DO Copies to: ~ Date of Service: 02/28/2023 Subjective Interval history: Patient is awake and alert sitting comfortably in the chair upon me walking intothe room. No acute events overnight. States his foot is continuing to feel better, though he is still concerned about persistent diarrhea. He states that he has between 3-5 episodes of diarrhea daily. Otherwise no new concerns reported. Exam Physical Exam Vital Signs: Temp Pulse Resp BP Pulse Ox O2 Del Method 97.5 F L 88 16 148/72 H 99 Room Air 02/28/23 07:44 02/28/23 07:44 02/28/23 07:44 02/28/23 07:44 02/28/23 07:44 02/28/23 08:05 Const General: cooperative, comfortable and no acute distress Orientation: alert, awake and oriented x3 HEENT Head: normal to inspection Ears: hearing grossly normal bilaterally Nose: external nose normal Eyes General: appearance normal, both eyes and all related structures Neck Neck: normal visual inspection, trachea midline and supple Resp Effort & Inspection: normal respiratory effort and able to speak in complete sentences Auscultation: clear to auscultation bilaterally, no rales, no rhonchi and no wheezes Cardio Rate: regular rate Rhythm: regular rhythm GI Inspection: non-distended Palpation: soft, no hepatosplenomegaly, no guarding and nontender Neuro General: patient alert, patient awake and patient oriented x3 Cognition: normal cognition Speech: speech normal Extrem General: no clubbing, cyanosis or edema Other: Left foot is wrapped in surgical dressing and an Fausto wrap. There is no obvious active drainage Psych Appearance: grossly normal Mental Status: mental status grossly normal Mood: congruent mood Affect: normal affect Objective Labs CBC/BMP: CBC, BMP 02/27/23 02/28/23 02/28/23 19:58 05:16 05:16 Corrected WBC 12.7 H Uncorrected WBC Count 12.7 H RBC 3.59 L Hgb 10.8 L Hct 31.9 L Plt Count 284 Sodium 139 Potassium 4.1 Chloride 103 Carbon Dioxide 31.5 H Anion Gap 8.6 BUN 17 Creatinine 1.65 H 1.73 H Calcium 8.7 Labs: 02/27/23 02/28/23 19:58 05:16 BUN 17 Creatinine 1.65 H 1.73 H Microbiology Microbiology Narrative: 02/23/23 12:05 Blood Culture - Preliminary Blood - Left Hand No Growth 4 Days 02/23/23 12:07 Blood Culture - Preliminary Blood - Left Forearm No Growth 4 Days 02/26/23 11:34 Aerobic Culture - Preliminary Toe,Left Fifth - Other Pseudomonas aeruginosa Anaerobic Culture - Preliminary No Anaerobes Isolated 1 Day Gram Stain - Final Allergies and Medications Allergies and Active Meds Allergies lisinopril Allergy (Verified 02/23/23 11:42) Swelling of Lip/Tongue/Throat metformin Adverse Reaction (Verified 02/23/23 11:42) Back Pain Active Medications Acetaminophen (Acetaminophen 325 Mg Tablet) 650 mg PO Q4H PRN PRN Reason: Pain Stop: 02/26/24 17:35 Atorvastatin Calcium (Atorvastatin 40 Mg Tablet) 40 mg PO DAILY KACI Stop: 02/23/24 17:14 Last Admin: 02/28/23 08:04 Dose: 40 mg Baclofen (Baclofen 20 Mg Tablet) 20 mg PO Q8H PRN PRN Reason: Muscle Spasm Stop: 02/26/24 19:59 Last Admin: 02/27/23 07:59 Dose: 20 mg Celecoxib (Celecoxib 200 Mg Capsule) 200 mg PO DAILY KACI Stop: 02/24/24 08:59 Last Admin: 02/28/23 08:04 Dose: 200 mg Clopidogrel Bisulfate (Clopidogrel Bisulfate 75 Mg Tablet) 75 mg PO DAILY KACI Stop: 02/23/24 17:14 Last Admin: 02/26/23 14:37 Dose: Not Given Dextrose (Dextrose 50% In Water 25 Gm/50 Ml Syringe) 0 gm IV-PUSH PRN PRN PRN Reason: Hypoglycemia Stop: 02/24/24 12:16 Duloxetine HCl (Duloxetine 60 Mg Capsule.Dr) 60 mg PO DAILY KACI Stop: 02/23/24 17:14 Last Admin: 02/28/23 08:05 Dose: 60 mg Enoxaparin Sodium (Enoxaparin 40 Mg/0.4 Ml Syringe) 40 mg SUBCUT DAILY@10 KACI Stop: 02/24/24 09:59 Last Admin: 02/26/23 09:49 Dose: Not Given Gabapentin (Gabapentin 800 Mg Tablet) 800 mg PO BID KACI Stop: 02/27/24 20:59 Last Admin: 02/28/23 08:04 Dose: 800 mg Glucose (Dextrose 40% Gel 15 Gm Tube) 0 gm PO PRN PRN PRN Reason: Hypoglycemia Stop: 02/24/24 12:16 Piperacillin Sod/Tazobactam Sod (Zosyn) 3.375 gm in 100 mls @ 200 mls/hr IV Q6HSCH Last Admin: 02/28/23 08:04 Dose: 200 mls/hr Vancomycin HCl 1.25 gm/ (Dextrose) 275 mls @ 183.333 mls/hr IV ONCE ONE Stop: 02/28/23 17:29 Insulin Aspart (Insulin Aspart 300 Units/3 Ml Insuln.Pen) 0 units SUBCUT TID.AC.[facility]; Protocol Stop: 02/24/24 16:59 Last Admin: 02/28/23 07:59 Dose: Not Given Insulin Glargine (Insulin Glargine 300 Units/3 Ml Insuln.Pen) 41 units SUBCUT BID [facility] Stop: 02/24/24 09:59 Last Admin: 02/28/23 08:05 Dose: 41 units Lidocaine HCl (Lidocaine 1% 50 Ml Vial) 0.1 ml INTRADERMA PREOP PRN PRN Reason: Venipuncture x 1 Dose Magnesium Oxide (Magnesium Oxide 400 Mg Tablet) 400 mg PO DAILY [facility] Stop: 02/27/24 09:14 Last Admin: 02/28/23 08:05 Dose: 400 mg Metoprolol Succinate (Metoprolol Succinate 50 Mg Tab.Er.24h) 50 mg PO DAILY [facility] Stop: 02/23/24 17:14 Last Admin: 02/28/23 08:04 Dose: 50 mg Metoprolol Tartrate (Metoprolol Tartrate 5 Mg/5 Ml Vial) 5 mg IV-PUSH Q4H PRN PRN Reason: Blood Pressure Stop: 02/25/24 13:56 Last Admin: 02/26/23 05:12 Dose: 5 mg Ondansetron HCl (Ondansetron 4 Mg/2 Ml Vial) 4 mg IV Q4HR PRN PRN Reason: NAUSEA AND VOMITING Stop: 02/27/24 22:50 Last Admin: 02/27/23 23:00 Dose: 4 mg Saccharomyces Boulardii (Saccharomyces Boulardii 250 Mg Capsule) 250 mg PO BID.WITH.MEALS [facility] Stop: 02/26/24 17:39 Last Admin: 02/28/23 08:05 Dose: 250 mg Sodium Chloride (Sodium Chloride 0.9 % 10 Ml Syringe) 0 ml IV-PUSH PRN PRN PRN Reason: Flush Stop: 02/23/24 11:41 Last Admin: 02/28/23 02:29 Dose: 10 ml Sodium Chloride (Sodium Chloride 0.9 % 10 Ml Syringe) 0 ml IV-PUSH PRN PRN PRN Reason: Flush Stop: 02/25/24 20:28 Tramadol HCl (Tramadol 50 Mg Tablet) 50 mg PO Q6H PRN PRN Reason: Pain Stop: 08/22/23 17:06 Last Admin: 02/27/23 15:32 Dose: 50 mg Vancomycin HCl (Vancomycin - Pharmacy Dosing 1 Each Miscell) 1 each IV ONCE PRN; Protocol PRN Reason: ZZ.Pharmacy Consult A&P - Infectious Disease Assessment/Plan (1) Diabetic foot infection: Code(s): E11.628 - Type 2 diabetes mellitus with other skin complications; L08.9 - Local infection of the skin and subcutaneous tissue, unspecified Status: Acute (2) Osteomyelitis: Code(s): M86.9 - Osteomyelitis, unspecified Status: Acute Plan 72-year-old male with history of poorly controlled diabetes mellitus who presented to the emergency room with diabetic foot infection and exposed bone ofthe fifth metatarsal. He presented with a leukocytosis and x-ray showed findings suggestive of underlying osteomyelitis which was confirmed by MRI. 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 Han. Deep wound cultures were taken during the procedure and are preliminarily showing light growth of pseudomonas, and the gram stain showedrare WBC with no bacteria seen. There were no anaerobes isolated after 1 day. His white blood cell count has decreased from 13.9 yesterday to 12.7 today. It is also noticed that his creatinine has been trending upward daily and is now at1.73. Given his worsening kidney function and no evidence of MRSA, we will discontinue the vancomycin and maintain the pt on Zosyn alone. Spoke with microlab and sensitivities for Pseudomonas should be out tomorrow. If susceptible toquinolones then would simply transition to oral Cipro or Levaquin and treat for 7 days post surgical procedure Documented By: Gabino Hyman DO,RES 02/28/23 090 0 Signed By: <Electronically signed by RES Gabino Hyman> 02/28/23 0948 <Electronically signed by MD Michael Ramírez> 02/28/23 3472 [facility] Work Phone: [phone] Progress note Author Rohan Han [facility] February 28, 2023 8:08am Note Date/Time February 28, 2023 8: 08am [facility] [address] [place] [address] Podiatry Progress Note Signed Patient: Sudeep Diego JR MR#: [id number] : 1950 Acct:[id number] Age/Sex: 72 / M Adm Date: 3 Loc: 4N Room: 9L8652-5 Type: ADM IN Attending Dr: Geo Thomas DO Copies to: ~ Subjective Subjective Date of Service: Date of Service: 02/28/2023 Time of Service: 08:01 Narrative: Pt is seen today 2 d s/p left partial fifth ray amputation with open ulceration to bone left foot. Pt denies n/f/v/c. denies pain to the operative foot. Currently receiving IV abx and resting comfortably. Patient had reinforcement of dressing on day of surgery with Integra graft not intact with hematoma and Surgicel applied on floor. Patient currently denies any pain and receiving IV antibiotics but does have loose stool ROS: GI: Positive recent history of loose stool on IV abx CARDIO: denies CP/SOB/Irregular rhythms or palpitations MS:Denies calf pains Exam Physical Exam Vital Signs: Temp Pulse Resp BP Pulse Ox O2 Del Method 97.5 F L 88 16 148/72 H 99 Room Air 02/28/23 07:44 02/28/23 07:44 02/28/23 07:44 02/28/23 07:44 02/28/23 07:44 02/28/23 07:44 Narrative: LE EXAM: DERM: Dressing to left foot dry and intact. Removal of dressing demonstrates hematoma to the left foot amputation site and ulceration site that has lifted and nonadherent Integra dressing. Ulceration to bone left fifth metatarsal neckregion with ulceration measuring 5 cm x 7 cm x 1.2 cm depth to tendon and bone stump left fifth metatarsal. Negative erythema noted to left foot. VASC: warm to warm tibia to toes to left foot NEURO: Gross sensation absent to left foot MS: Negative POP to left calf of leg MICRO: Early preliminary findings of Pseudomonas XRAY: Review of radiograph demonstrates fifth metatarsal midneck resection left foot Lab: WBC 12.7 Assessment/Plan (1) Acute hematogenous osteomyelitis, left ankle and foot: Code(s): M86.072 - Acute hematogenous osteomyelitis, left ankle and foot (2) 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: Code(s): L97.526 - Non-pressure chronic ulcer of other part of left foot with bone involvement without evidence of necrosis (3) 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 Ordered wound VAC today for patient to have while in house and also may [facility] to continue while at home. Ordered KCI wound VAC at 125 mmHg continuous to be changed 3 times weekly or per home health visit allowance. 2. Removed Integra dressing as was compromised from hematoma and removed Surgicel dressing with wound bed noted to ulcerative and amputation site with slight serous drainage. 3. At this time no further surgical intervention however patient will need wound care follow-up with Dr. Rohan Han while in office and will await possible treatment recommendations and follow those of infectious disease for patient management on an outpatient basis. Patient is currently cleared from podiatry from a foot standpoint and will be seen outpatient unless patient continues to need IV antibiotics per recommendation of infectious disease and hospitalist and will follow while in house. Otherwise patient of Dr. Katt Han on outpatient basis once discharged within the week. Documented By: Rohan Han DPM 02/28/23 0801 Signed By: <Electronically signed by TOY Han> 02/28/23 0808 [facility] Work Phone: [phone]) 440-187710-05-2023 Progress note Author Geo Thomas [facility] February 27, 2023 12:05pm Note Date/Time February 27, 2023 12 :05pm [facility] [address] [place] [address] Hospitalist Progress Note Signed Patient: Sudeep Diego JR MR#: [id number] : 1950 Acct:[id number] Age/Sex: 72 / M Adm Date: 3 Loc: Room: [address] [place] [address] Type: ADM IN Attending Dr: Geo Thomas DO Copies to: ~ Date of Service: 02/27/2023 Subjective Subjective Narrative: Today the patient is awake and alert. He discusses me how Dr. Han had come inyesterday in the evening to change the dressing and the patient describes what sounds like some cautery or pressure or fibrin application a couple inches deep into the operative wound. I reassured the patient that this is fairly normal for this type of surgery. It does not appear that he has had any further bleeding after that. The patient did have 1 rather liquid bowel movement this morning. Denies abdominal pain. Not having fevers or chills. No abdominal cramping. His appetite is really good. He said that at home for several weeks he had a poor appetite but a day or 2 after surgery now his appetite is really good. He denies any cough. Denies any headache or lightheadedness or dizziness. His was on the telephone during the encounter and had no additional questions. Exam Physical Exam Vital Signs: Temp Pulse Resp BP Pulse Ox O2 Del Method 98.0 F 72 12 127/60 96 Room Air 02/27/23 11:46 02/27/23 11:46 02/27/23 11:46 02/27/23 11:46 02/27/23 11:46 02/27/23 11:46 Narrative: General: Seated upright in bed. Awake. Alert. Oriented x3. Pulmonary: Clear to auscultation throughout. No wheezing. No rhonchi. No crackles. Cardiac: Regular rate and rhythm. No rubs or gallops to auscultation. GI: Abdomen soft, nontender to palpation, with normal bowel sounds auscultation. Extremities: Left foot is dressed in a nice compressive gauze bandage covered with FAUSTO. The toes are visible. No streaking cellulitis is visible going up the left leg. Right leg is normal. No edema in the ankle. No swelling or knots or cords in the calves bilaterally. Objective Lab Results 02/27/23 02:23 02/27/23 02:23 Microbiology Results Microbiology 02/26/23 11:34 Toe,Left Fifth - Other Aerobic Culture - Preliminary Gram Negative Bacilli 02/26/23 11:34 Toe,Left Fifth - Other Anaerobic Culture - Preliminary No Anaerobes Isolated 1 Day 02/26/23 11:34 Toe,Left Fifth - Other Gram Stain - Final 02/23/23 12:07 Blood - Left Forearm Blood Culture - Preliminary No Growth 3 Days 02/23/23 12:05 Blood - Left Hand Blood Culture - Preliminary No Growth 3 Days Meds Allergies and Active Meds Allergies lisinopril Allergy (Verified 02/23/23 11:42) Swelling of Lip/Tongue/Throat metformin Adverse Reaction (Verified 02/23/23 11:42) Back Pain Active Meds: Active Medications Generic Name Dose Route Start Last Admin Trade Name Freq PRN Reason Stop Dose Admin Acetaminophen 650 mg 02/26/23 17:36 Acetaminophen 325 Mg Tablet PO 02/26/24 17:35 Q4H PRN Pain Atorvastatin Calcium 40 mg 02/23/23 17:15 02/27/23 08:00 Atorvastatin 40 Mg Tablet PO 02/23/24 17:14 40 mg DAILY KACI Administration Baclofen 20 mg 02/26/23 19:48 02/27/23 07:59 Baclofen 20 Mg Tablet PO 02/26/24 19:59 20 mg Q8H PRN Administration Muscle Spasm Celecoxib 200 mg 02/24/23 09:00 02/27/23 08:00 Celecoxib 200 Mg Capsule PO 02/24/24 08:59 200 mg DAILY KACI Administration Clopidogrel Bisulfate 75 mg 02/23/23 17:15 02/26/23 14:37 Clopidogrel Bisulfate 75 Mg Tablet PO 02/23/24 17:14 Not Given DAILY KACI Dextrose 0 gm 02/24/23 12:17 Dextrose 50% In Water 25 Gm/50 Ml Syringe IV-PUSH 02/24/24 12:16 PRN PRN Hypoglycemia Diphenoxylate HCl/Atropine 1 tab 02/27/23 12:02 Diphenoxylate Hcl/Atropine 1 Tab Tablet PO 02/27/23 12:03 ONCE ONE Duloxetine HCl 60 mg 02/23/23 17:15 02/27/23 08:00 Duloxetine 60 Mg Capsule.Dr PO 02/23/24 17:14 60 mg DAILY KACI Administration Enoxaparin Sodium 40 mg 02/24/23 10:00 02/26/23 09:49 Enoxaparin 40 Mg/0.4 Ml Syringe SUBCUT 02/24/24 09:59 Not Given DAILY@10 KACI Gabapentin 800 mg 02/23/23 22:00 02/27/23 08:00 Gabapentin 800 Mg Tablet PO 02/23/24 21:59 800 mg TID KACI Administration Glucose 0 gm 02/24/23 12:17 Dextrose 40% Gel 15 Gm Tube PO 02/24/24 12:16 PRN PRN Hypoglycemia Piperacillin Sod/Tazobactam Sod 3.375 gm in 100 mls @ 200 mls/hr 02/23/23 20:30 02/27/23 08:00 Zosyn IV 200 mls/hr Q6H KACI Administration Insulin Aspart 0 units 02/24/23 17:00 02/27/23 11:46 Insulin Aspart 300 Units/3 Ml Insuln.Pen SUBCUT 02/24/24 16:59 4 units TID.AC.HS KACI Administration Protocol Insulin Glargine 41 units 02/24/23 10:00 02/27/23 08:00 Insulin Glargine 300 Units/3 Ml Insuln.Pen SUBCUT 02/24/24 09:59 41 units BID KACI Administration Lidocaine HCl 0.1 ml 02/25/23 20:29 Lidocaine 1% 50 Ml Vial INTRADERMA PREOP PRN Venipuncture x 1 Dose Magnesium Oxide 400 mg 02/27/23 09:15 02/27/23 09:59 Magnesium Oxide 400 Mg Tablet PO 02/27/24 09:14 400 mg DAILY KACI Administration Metoprolol Succinate 50 mg 02/23/23 17:15 02/27/23 08:00 Metoprolol Succinate 50 Mg Tab.Er.24h PO 02/23/24 17:14 50 mg DAILY KACI Administration Metoprolol Tartrate 5 mg 02/25/23 13:57 02/26/23 05:12 Metoprolol Tartrate 5 Mg/5 Ml Vial IV-PUSH 02/25/24 13:56 5 mg Q4H PRN Administration Blood Pressure Saccharomyces Boulardii 250 mg 02/26/23 17:40 02/27/23 08:00 Saccharomyces Boulardii 250 Mg Capsule PO 02/26/24 17:39 250 mg BID.WITH.MEALS KACI Administration Sodium Chloride 0 ml 02/23/23 11:42 02/26/23 10:03 Sodium Chloride 0.9 % 10 Ml Syringe IV-PUSH 02/23/24 11:41 10 ml PRN PRN Administration Flush Sodium Chloride 0 ml 02/25/23 20:29 Sodium Chloride 0.9 % 10 Ml Syringe IV-PUSH 02/25/24 20:28 PRN PRN Flush Tramadol HCl 50 mg 02/23/23 17:45 02/27/23 05:54 Tramadol 50 Mg Tablet PO 08/22/23 17:06 50 mg Q6H PRN Administration Pain Vancomycin HCl 1 each 02/23/23 17:13 Vancomycin - Pharmacy Dosing 1 Each Miscell IV ONCE PRN ZZ.Pharmacy Consult Protocol A&P - Hospitalist Assessment/Plan (1) Diabetic foot infection: (2) Diabetes mellitus due to underlying condition with diabetic neuropathy, unspecified: (3) Osteomyelitis: (4) PAD (peripheral artery disease): (5) Hypertension: (6) Sciatica, left side: Plan Assessment: Diabetic foot infection Osteomyelitis of the left distal phalanges and distal metatarsal. Refer to renal disease. Diabetes mellitus type 2. Hypertension Sciatica of the left side. In-hospital development of antibiotic associated diarrhea. Plan: IV zosyn and vancomycin, await cultures, so far the deep wound culture is growing a gram-negative janki. I appreciate the consult from podiatry I appreciate the input from infectious diseases lovenox 40 mg sc daily for DVT prophylaxis - -will be kept on hold given soakingof the dressing with blood today. We will try one-time dose of Lomotil to reduce diarrhea. We will maintain patient on probiotics to reduce antibiotic associated diarrhea. Continue close monitoring for development of worsening diarrhea. Continue to cover his hyperglycemia with sliding scale insulin. His blood glucose this morning was 111 at breakfast so he is pretty good diabetes control at the start of his day. Continued inpatient hospital monitoring and daily labs on IV vancomycin. Of note his creatinine is risen over the last 3 days from 0.61 up to 1.14 up to 1.53 today. Documented By: Geo Thomas DO 1202 Signed By: <Electronically signed by Geo Thomas DO> 02/27/23 1204 [facility] Work Phone: [phone]) 999-816410-05-2023 Progress note Author Michael Ramírez [facility] February 27, 2023 11:11am Note Date/Time February 27, 2023 8: 35am [facility] [address] [place] [address] Infect. Disease Progress Note Signed Patient: Sudeep Diego JR MR#: [id number] : 1950 Acct:[id number] Age/Sex: 72 / M Adm Date: 3 Loc: 4N Room: [address] [place] [address] Type: ADM IN Attending Dr: Geo Thomas DO Copies to: ~ Date of Service: 02/27/2023 Subjective Interval history: Patient is awake and alert sitting comfortably in the chair upon me walking intothe room. No acute events overnight. States he is feeling better today than hehas been the previous days. He did undergo surgery yesterday by Dr. Han states he is recovering well. He does still report some persistent diarrhea, though this seems to be somewhat slowing down. He was started on a probiotic bythe hospitalist and states this has helped lessen his abdominal pain and diarrhea. When I went into the room the room with Dr. Hyman had patient was found asleepso I did not disturb Exam Physical Exam Vital Signs: Temp Pulse Resp BP Pulse Ox O2 Del Method 98.5 F 74 16 162/70 H 97 Room Air 02/27/23 07:49 02/27/23 07:49 02/27/23 07:49 02/27/23 07:49 02/27/23 07:49 02/27/23 07:49 Const General: cooperative, comfortable and no acute distress Orientation: alert, awake and oriented x3 HEENT Head: normal to inspection Ears: hearing grossly normal bilaterally Nose: external nose normal Eyes General: appearance normal, both eyes and all related structures Neck Neck: normal visual inspection, trachea midline and supple Resp Effort & Inspection: normal respiratory effort and able to speak in complete sentences Auscultation: clear to auscultation bilaterally, no rales, no rhonchi and no wheezes Cardio Rate: regular rate Rhythm: regular rhythm GI Inspection: non-distended Palpation: soft, no hepatosplenomegaly, no guarding and nontender Neuro General: patient alert, patient awake and patient oriented x3 Cognition: normal cognition Speech: speech normal Extrem General: no clubbing, cyanosis or edema Other: Left foot is wrapped in surgical dressing and an Fausto wrap. There is no obvious active drainage Psych Appearance: grossly normal Mental Status: mental status grossly normal Mood: congruent mood Affect: normal affect Objective Labs CBC/BMP: CBC, BMP 02/27/23 02/27/23 02:23 02:23 Corrected WBC 13.9 H Uncorrected WBC Count 13.9 H RBC 3.59 L Hgb 10.7 L Hct 31.5 L Plt Count 277 Sodium 138 Potassium 4.0 Chloride 103 Carbon Dioxide 29.0 Anion Gap 10.0 BUN 16 Creatinine 1.53 H Calcium 8.1 L Labs: 02/27/23 02:23 BUN 16 Creatinine 1.53 H Microbiology Microbiology Narrative: 02/26/23 11:34 Aerobic Culture - Pending Toe,Left Fifth - Other Anaerobic Culture - Pending Gram Stain - Final 02/23/23 12:07 Blood Culture - Preliminary Blood - Left Forearm No Growth 3 Days 02/23/23 12:05 Blood Culture - Preliminary Blood - Left Hand No Growth 3 Days Additional Results Results Comment: Left foot MRI on 02/25/2023: Cortical destruction and bone marrow edematous changes of the mid and distal portion of the fifth metatarsal and the proximal portion of the fifth proximal phalanx consistent with osteomyelitis. No abscess. Left foot x-ray on 02/26/2023: Amputation changes without definitive acute sinister process. Allergies and Medications Allergies and Active Meds Allergies lisinopril Allergy (Verified 02/23/23 11:42) Swelling of Lip/Tongue/Throat metformin Adverse Reaction (Verified 02/23/23 11:42) Back Pain Active Medications Acetaminophen (Acetaminophen 325 Mg Tablet) 650 mg PO Q4H PRN PRN Reason: Pain Stop: 02/26/24 17:35 Atorvastatin Calcium (Atorvastatin 40 Mg Tablet) 40 mg PO DAILY KACI Stop: 02/23/24 17:14 Last Admin: 02/27/23 08:00 Dose: 40 mg Baclofen (Baclofen 20 Mg Tablet) 20 mg PO Q8H PRN PRN Reason: Muscle Spasm Stop: 02/26/24 19:59 Last Admin: 02/27/23 07:59 Dose: 20 mg Celecoxib (Celecoxib 200 Mg Capsule) 200 mg PO DAILY KACI Stop: 02/24/24 08:59 Last Admin: 02/27/23 08:00 Dose: 200 mg Clopidogrel Bisulfate (Clopidogrel Bisulfate 75 Mg Tablet) 75 mg PO DAILY KACI Stop: 02/23/24 17:14 Last Admin: 02/26/23 14:37 Dose: Not Given Dextrose (Dextrose 50% In Water 25 Gm/50 Ml Syringe) 0 gm IV-PUSH PRN PRN PRN Reason: Hypoglycemia Stop: 02/24/24 12:16 Duloxetine HCl (Duloxetine 60 Mg Capsule.Dr) 60 mg PO DAILY [facility] Stop: 02/23/24 17:14 Last Admin: 02/27/23 08:00 Dose: 60 mg Enoxaparin Sodium (Enoxaparin 40 Mg/0.4 Ml Syringe) 40 mg SUBCUT DAILY@10 [facility] Stop: 02/24/24 09:59 Last Admin: 02/26/23 09:49 Dose: Not Given Gabapentin (Gabapentin 800 Mg Tablet) 800 mg PO TID [facility] Stop: 02/23/24 21:59 Last Admin: 02/27/23 08:00 Dose: 800 mg Glucose (Dextrose 40% Gel 15 Gm Tube) 0 gm PO PRN PRN PRN Reason: Hypoglycemia Stop: 02/24/24 12:16 Hydrochlorothiazide (Hydrochlorothiazide 25 Mg Tablet) 25 mg PO DAILY [facility] Stop: 02/26/24 08:59 Last Admin: 02/27/23 08:00 Dose: 25 mg Piperacillin Sod/Tazobactam Sod (Zosyn) 3.375 gm in 100 mls @ 200 mls/hr IV Q6HSCH Last Admin: 02/27/23 08:00 Dose: 200 mls/hr Insulin Aspart (Insulin Aspart 300 Units/3 Ml Insuln.Pen) 0 units SUBCUT TID..[facility]; Protocol Stop: 02/24/24 16:59 Last Admin: 02/27/23 07:57 Dose: Not Given Insulin Glargine (Insulin Glargine 300 Units/3 Ml Insuln.Pen) 41 units SUBCUT BID [facility] Stop: 02/24/24 09:59 Last Admin: 02/27/23 08:00 Dose: 41 units Lidocaine HCl (Lidocaine 1% 50 Ml Vial) 0.1 ml INTRADERMA PREOP PRN PRN Reason: Venipuncture x 1 Dose Metoprolol Succinate (Metoprolol Succinate 50 Mg Tab.Er.24h) 50 mg PO DAILY [facility] Stop: 02/23/24 17:14 Last Admin: 02/27/23 08:00 Dose: 50 mg Metoprolol Tartrate (Metoprolol Tartrate 5 Mg/5 Ml Vial) 5 mg IV-PUSH Q4H PRN PRN Reason: Blood Pressure Stop: 02/25/24 13:56 Last Admin: 02/26/23 05:12 Dose: 5 mg Saccharomyces Boulardii (Saccharomyces Boulardii 250 Mg Capsule) 250 mg PO BID.WITH.MEALS KACI Stop: 02/26/24 17:39 Last Admin: 02/27/23 08:00 Dose: 250 mg Sodium Chloride (Sodium Chloride 0.9 % 10 Ml Syringe) 0 ml IV-PUSH PRN PRN PRN Reason: Flush Stop: 02/23/24 11:41 Last Admin: 02/26/23 10:03 Dose: 10 ml Sodium Chloride (Sodium Chloride 0.9 % 10 Ml Syringe) 0 ml IV-PUSH PRN PRN PRN Reason: Flush Stop: 02/25/24 20:28 Tramadol HCl (Tramadol 50 Mg Tablet) 50 mg PO Q6H PRN PRN Reason: Pain Stop: 08/22/23 17:06 Last Admin: 02/27/23 05:54 Dose: 50 mg Vancomycin HCl (Vancomycin - Pharmacy Dosing 1 Each Miscell) 1 each IV ONCE PRN; Protocol PRN Reason: ZZ.Pharmacy Consult A&P - Infectious Disease Assessment/Plan (1) Diabetic foot infection: Code(s): E11.628 - Type 2 diabetes mellitus with other skin complications; L08.9 - Local infection of the skin and subcutaneous tissue, unspecified Status: Acute (2) Osteomyelitis: Code(s): M86.9 - Osteomyelitis, unspecified Status: Acute Plan 72-year-old male with history of poorly controlled diabetes mellitus who presented to the emergency room with diabetic foot infection and exposed bone ofthe fifth metatarsal. He presented with a leukocytosis of 13 and x-ray showed findings suggestive of underlying osteomyelitis which was confirmed by MRI. He did undergo amputation of the left fifth metatarsal and left fifth digit yesterday by Dr. aHn. Deep wound cultures were taken during the procedure andare growing a GNR to date. His white blood cell count did increase today to 13.9 from 12.7 yesterday though this could just be from stress from the surgicalintervention yesterday. From infectious disease perspective, we will maintain him on IV vancomycin and Zosyn. Will narrow spectrum as cultures and sensitivities return. Per operative note it appears that excision of infected bone should have been complete. May require short course of postoperative antibiotics and if we can transition to oral choice then we will. Documented By: Gabino Hyman DO,RES 02/27/23 083 2 Signed By: <Electronically signed by DO KELLE Hyman> 02/27/23 1003 <Electronically signed by MD Michael Ramírez> 02/27/23 1111 [facility] Work Phone: 1(162) 913-398310-04-2023 Progress note Author Rohan Han [facility] February 26, 2023 6:32pm Note Date/Time February 26, 2023 6: 33pm [facility] [address] [place] [address] Podiatry Progress Note Signed Patient: Sudeep Diego JR MR#: [id number] : 1950 Acct:[id number] Age/Sex: 72 / M Adm Date: 3 Loc: 4N Room: [address] [place] [address] Type: ADM IN Attending Dr: Geo Thomas DO Copies to: ~ Subjective Subjective Date of Service: Date of Service: 02/26/2023 Time of Service: 18:29 Narrative: call from floor that patient is having breakthrough bleeding to dressing. Removed dressing on floor with minimal oozing to wound. Application of surgicel fibrillar under integra graft with graft compromise. DSD applied and foot elevated with DSD. Bleeding stabalized. Podiatry to follow Exam Physical Exam Vital Signs: Temp Pulse Resp BP Pulse Ox O2 Del Method 98.2 F 89 20 122/68 98 Room Air 02/26/23 17:46 02/26/23 17:46 02/26/23 17:46 02/26/23 17:46 02/26/23 17:46 02/26/23 17:46 Assessment/Plan (1) Acute hematogenous osteomyelitis, left ankle and foot: Code(s): M86.072 - Acute hematogenous osteomyelitis, left ankle and foot Documented By: Rohan Han DPM 02/26/23 1829 Signed By: <Electronically signed by TOY Han> 02/26/23 183 [facility] Work Phone: 1(241) 624-749110-04-2023 Progress note Author Geo Thomas [facility] February 26, 2023 5:36pm Note Date/Time February 26, 2023 5: 28pm [facility] [address] [place] [address] Hospitalist Progress Note Signed Patient: Sudeep Diego JR MR#: [id number] : 1950 Acct:[id number] Age/Sex: 72 / M Adm Date: 3 Loc: 4 Room: [address] [place] [address] Type: ADM IN Attending Dr: Geo Thomas DO Copies to: ~ Date of Service: 02/26/2023 Subjective Subjective Narrative: Patient underwent amputation of the toe and distal portion of the metatarsal bone earlier today. Blood glucoses have been fairly well controlled at 123, 134, 135 but then 1 higher today at dinnertime 270. His hemoglobin A1c is a little above the goal at 7.2. Blood pressures have come under better control with addition of the hydrochlorothiazide. Right now cultures are not growing any specific organisms. This includes blood cultures x2 and then the intraoperative culture obtained today. Subjective: The patient shows me pictures that he took of the foot dressing earlier today when bleeding soaked the first dressing and nursing Just changed out. Looking at the dressing right now I do not see any return of significant bleeding like that. Right now he states his pain is manageable. He does report 2 very large liquid bowel movements today. He reports some rectal irritation from this. He is not having abdominal pain. No chest pain orpalpitations. No cough or expectorate sputum. Exam Physical Exam Vital Signs: Temp Pulse Resp BP Pulse Ox O2 Del Method 98.5 F 79 16 146/68 H 96 Room Air 02/26/23 10:00 02/26/23 12:40 02/26/23 12:40 02/26/23 12:40 02/26/23 12:40 02/26/23 16:00 Narrative: General: Seated upright in bed. Awake. Alert. Oriented x3. Pulmonary: Clear to auscultation throughout. No wheezing. No rhonchi. No crackles. Cardiac: Regular rate and rhythm. No rubs or gallops to auscultation. GI: Abdomen soft, nontender to palpation, with normal bowel sounds auscultation. Extremities: Left foot is dressed in a nice compressive gauze bandage covered with FAUSTO. The toes are visible. No streaking cellulitis is visible going up the left leg. Right leg is normal. No edema in the ankle. No swelling or knots or cords in the calves bilaterally. Objective Lab Results 02/26/23 05:56 02/26/23 05:56 Microbiology Results Microbiology 02/26/23 11:34 Toe,Left Fifth - Other Gram Stain - Final 02/23/23 12:07 Blood - Left Forearm Blood Culture - Preliminary No Growth 3 Days 02/23/23 12:05 Blood - Left Hand Blood Culture - Preliminary No Growth 3 Days Meds Allergies and Active Meds Allergies lisinopril Allergy (Verified 02/23/23 11:42) Swelling of Lip/Tongue/Throat metformin Adverse Reaction (Verified 02/23/23 11:42) Back Pain Active Meds: Active Medications Generic Name Dose Route Start Last Admin Trade Name Freq PRN Reason Stop Dose Admin Atorvastatin Calcium 40 mg 02/23/23 17:15 02/26/23 14:38 Atorvastatin 40 Mg Tablet PO 02/23/24 17:14 Not Given DAILY KACI Baclofen 20 mg 02/23/23 17:15 02/26/23 14:38 Baclofen 20 Mg Tablet PO 02/23/24 17:14 Not Given DAILY KACI Celecoxib 200 mg 02/24/23 09:00 02/26/23 14:38 Celecoxib 200 Mg Capsule PO 02/24/24 08:59 Not Given DAILY [facility]I Clopidogrel Bisulfate 75 mg 02/23/23 17:15 02/26/23 14:37 Clopidogrel Bisulfate 75 Mg Tablet PO 02/23/24 17:14 Not Given DAILY KACI Dextrose 0 gm 02/24/23 12:17 Dextrose 50% In Water 25 Gm/50 Ml Syringe IV-PUSH 02/24/24 12:16 PRN PRN Hypoglycemia Duloxetine HCl 60 mg 02/23/23 17:15 02/26/23 14:37 Duloxetine 60 Mg Capsule.Dr PO 02/23/24 17:14 Not Given DAILY KACI Enoxaparin Sodium 40 mg 02/24/23 10:00 02/26/23 09:49 Enoxaparin 40 Mg/0.4 Ml Syringe SUBCUT 02/24/24 09:59 Not Given DAILY@10 [facility] Gabapentin 800 mg 02/23/23 22:00 02/26/23 14:36 Gabapentin 800 Mg Tablet PO 02/23/24 21:59 800 mg TID KACI Administration Glucose 0 gm 02/24/23 12:17 Dextrose 40% Gel 15 Gm Tube PO 02/24/24 12:16 PRN PRN Hypoglycemia Hydralazine HCl 10 mg 02/25/23 13:57 02/26/23 03:37 Hydralazine 20 Mg/Ml Vial IV-PUSH 02/25/24 13:56 10 mg Q4H PRN Administration Hypertension Hydrochlorothiazide 25 mg 02/26/23 09:00 02/26/23 08:34 Hydrochlorothiazide 25 Mg Tablet PO 02/26/24 08:59 25 mg DAILY KACI Administration Sodium Chloride 1,000 mls @ 75 mls/hr 02/23/23 17:15 02/26/23 14:22 0.9% Sodium Chloride 1,000 Ml IV 02/23/24 17:14 Not Given .[id number] KACI Piperacillin Sod/Tazobactam Sod 3.375 gm in 100 mls @ 200 mls/hr 02/23/23 20:30 02/26/23 14:36 Zosyn IV 200 mls/hr Q6H [facility]I Administration Vancomycin HCl 1.25 gm/ 275 mls @ 183.333 mls/hr 02/24/23 01:00 02/26/23 16:09 Dextrose IV 02/24/24 00:59 183.33 mls/hr Q12H [facility]I Administration Lactated Ringer's 1,000 mls @ 20 mls/hr 02/25/23 20:29 02/26/23 10:03 Lactated Ringers IV 02/26/23 20:28 20 mls/hr .Q24H ONE Administration Insulin Aspart 0 units 02/24/23 17:00 02/26/23 16:33 Insulin Aspart 300 Units/3 Ml Insuln.Pen SUBCUT 02/24/24 16:59 2 units TID.AC.HS KACI Administration Protocol Insulin Glargine 41 units 02/24/23 10:00 02/26/23 14:22 Insulin Glargine 300 Units/3 Ml Insuln.Pen SUBCUT 02/24/24 09:59 Not Given BID KACI Lidocaine HCl 0.1 ml 02/25/23 20:29 Lidocaine 1% 50 Ml Vial INTRADERMA PREOP PRN Venipuncture x 1 Dose Metoprolol Succinate 50 mg 02/23/23 17:15 02/26/23 08:34 Metoprolol Succinate 50 Mg Tab.Er.24h PO 02/23/24 17:14 50 mg DAILY KACI Administration Metoprolol Tartrate 5 mg 02/25/23 13:57 02/26/23 05:12 Metoprolol Tartrate 5 Mg/5 Ml Vial IV-PUSH 02/25/24 13:56 5 mg Q4H PRN Administration Blood Pressure Sodium Chloride 0 ml 02/23/23 11:42 02/26/23 10:03 Sodium Chloride 0.9 % 10 Ml Syringe IV-PUSH 02/23/24 11:41 10 ml PRN PRN Administration Flush Sodium Chloride 0 ml 02/25/23 20:29 Sodium Chloride 0.9 % 10 Ml Syringe IV-PUSH 02/25/24 20:28 PRN PRN Flush Tramadol HCl 50 mg 02/23/23 17:45 02/26/23 16:33 Tramadol 50 Mg Tablet PO 08/22/23 17:06 50 mg Q6H PRN Administration Pain Vancomycin HCl 1 each 02/23/23 17:13 Vancomycin - Pharmacy Dosing 1 Each Miscell IV ONCE PRN ZZ.Pharmacy Consult Protocol A&P - Hospitalist Assessment/Plan (1) Diabetic foot infection: (2) Diabetes mellitus due to underlying condition with diabetic neuropathy, unspecified: (3) Osteomyelitis: (4) PAD (peripheral artery disease): (5) Hypertension: (6) Sciatica, left side: Plan Assessment: Diabetic foot infection Osteomyelitis of the left distal phalanges and distal metatarsal. Refer to renal disease. Diabetes mellitus type 2. Hypertension Sciatica of the left side. In-hospital development of antibiotic associated diarrhea. Plan: IV zosyn and vancomycin, await cultures I appreciate the consult from podiatry I appreciate the input from vascular surgery lovenox 40 mg sc daily for DVT prophylaxis - -will be placed on hold given soaking of the dressing with blood today. Awaiting results of cultures taken today. Documented By: Geo Thomas DO 1724 Signed By: <Electronically signed by Geo Thomas DO> 02/26/231735 [facility] Work Phone: [phone] 296-202510-04-2023 Progress note Author Michael Ramírez [facility] February 26, 2023 8:46am Note Date/Time February 26, 2023 8: 46am [facility] [address] [place] [address] Infect. Disease Progress Note Signed Patient: Sudeep Diego JR MR#: [id number] : 1950 Acct:[id number] Age/Sex: 72 / M Adm Date: 3 Loc: 4N Room: [address] [place] [address] Type: ADM IN Attending Dr: Geo Thomas DO Copies to: ~ Date of Service: 02/26/2023 Subjective Interval history: Patient with some loose stools likely from the antibiotics. Scheduled for surgery today by Dr. Han. MRI with cortical destruction and bone marrow edematous changes in the mid and distal portion of the fifth metatarsal as well as proximal portion of the fifth proximal phalanx. Exam Physical Exam Vital Signs: Temp Pulse Resp BP Pulse Ox O2 Del Method 98.2 F 67 16 163/79 H 99 Room Air 02/26/23 05:00 02/26/23 08:00 02/26/23 08:00 02/26/23 08:00 02/26/23 05:00 02/26/23 05:00 Const General: cooperative, comfortable and no acute distress Orientation: alert, awake and oriented x3 HEENT Head: normal to inspection Ears: hearing grossly normal bilaterally Nose: external nose normal Eyes General: appearance normal, both eyes and all related structures Neck Neck: normal visual inspection Resp Effort & Inspection: normal respiratory effort and able to speak in complete sentences Auscultation: clear to auscultation bilaterally, no rales, no rhonchi and no wheezes Cardio Rate: regular rate Rhythm: regular rhythm GI Inspection: non-distended Palpation: soft, no hepatosplenomegaly, no guarding and nontender Neuro General: patient alert, patient awake and patient oriented x3 Cognition: normal cognition Speech: speech normal Extrem General: no clubbing, cyanosis or edema Other: Foot dressing not taken down today Psych Appearance: grossly normal Mood: congruent mood Affect: normal affect Objective Labs CBC/BMP: CBC, BMP 02/26/23 02/26/23 05:56 05:56 Corrected WBC 12.7 H Uncorrected WBC Count 12.7 H RBC 4.36 Hgb 13.0 Hct 38.3 L Plt Count 298 Sodium 138 Potassium 3.8 Chloride 104 Carbon Dioxide 26.7 Anion Gap 11.1 BUN 13 Creatinine 1.14 D Calcium 8.3 L Labs: 02/26/23 05:56 BUN 13 Creatinine 1.14 D Microbiology Microbiology: Microbiology - Results from entire visit 02/23/23 12:07 Blood - Left Forearm Blood Culture - Preliminary No Growth 2 Days 02/23/23 12:05 Blood - Left Hand Blood Culture - Preliminary No Growth 2 Days Additional Results Results Comment: MRI: Impression: Cortical destruction and bone marrow edematous changes of the mid and distal portion of the fifth metatarsal and the proximal portion of the fifthproximal phalanx consistent with osteomyelitis. No abscess. Allergies and Medications Allergies and Active Meds Allergies lisinopril Allergy (Verified 02/23/23 11:42) Swelling of Lip/Tongue/Throat metformin Adverse Reaction (Verified 02/23/23 11:42) Back Pain Active Medications Atorvastatin Calcium (Atorvastatin 40 Mg Tablet) 40 mg PO DAILY [facility] Stop: 02/23/24 17:14 Last Admin: 02/25/23 08:29 Dose: 40 mg Baclofen (Baclofen 20 Mg Tablet) 20 mg PO DAILY [facility] Stop: 02/23/24 17:14 Last Admin: 02/25/23 08:29 Dose: 20 mg Celecoxib (Celecoxib 200 Mg Capsule) 200 mg PO DAILY [facility] Stop: 02/24/24 08:59 Last Admin: 02/25/23 08:29 Dose: 200 mg Clopidogrel Bisulfate (Clopidogrel Bisulfate 75 Mg Tablet) 75 mg PO DAILY [facility] Stop: 02/23/24 17:14 Last Admin: 02/25/23 08:29 Dose: 75 mg Dextrose (Dextrose 50% In Water 25 Gm/50 Ml Syringe) 0 gm IV-PUSH PRN PRN PRN Reason: Hypoglycemia Stop: 02/24/24 12:16 Duloxetine HCl (Duloxetine 60 Mg Capsule.Dr) 60 mg PO DAILY [facility] Stop: 02/23/24 17:14 Last Admin: 02/25/23 08:29 Dose: 60 mg Enoxaparin Sodium (Enoxaparin 40 Mg/0.4 Ml Syringe) 40 mg SUBCUT DAILY@10 [facility] Stop: 02/24/24 09:59 Last Admin: 02/25/23 11:26 Dose: 40 mg Gabapentin (Gabapentin 800 Mg Tablet) 800 mg PO TID [facility] Stop: 02/23/24 21:59 Last Admin: 02/25/23 21:52 Dose: 800 mg Glucose (Dextrose 40% Gel 15 Gm Tube) 0 gm PO PRN PRN PRN Reason: Hypoglycemia Stop: 02/24/24 12:16 Hydralazine HCl (Hydralazine 20 Mg/Ml Vial) 10 mg IV-PUSH Q4H PRN PRN Reason: Hypertension Stop: 02/25/24 13:56 Last Admin: 02/26/23 03:37 Dose: 10 mg Hydrochlorothiazide (Hydrochlorothiazide 25 Mg Tablet) 25 mg PO DAILY [facility] Stop: 02/26/24 08:59 Sodium Chloride (0.9% Sodium Chloride 1,000 Ml) 1,000 mls @ 75 mls/hr IV .[id number] [facility] Stop: 02/23/24 17:14 Last Admin: 02/25/23 21:53 Dose: Not Given Piperacillin Sod/Tazobactam Sod (Zosyn) 3.375 gm in 100 mls @ 200 mls/hr IV Q6HSCH Last Admin: 02/26/23 02:43 Dose: 200 mls/hr Vancomycin HCl 1.25 gm/ (Dextrose) 275 mls @ 183.333 mls/hr IV Q12H [facility] Stop: 02/24/24 00:59 Last Admin: 02/26/23 00:41 Dose: 183.33 mls/hr Lactated Ringer's (Lactated Ringers) 1,000 mls @ 20 mls/hr IV .Q24H ONE Stop: 02/26/23 20:28 Last Admin: 02/25/23 20:39 Dose: Not Given Insulin Aspart (Insulin Aspart 300 Units/3 Ml Insuln.Pen) 0 units SUBCUT TID..[facility]; Protocol Stop: 02/24/24 16:59 Last Admin: 02/25/23 21:52 Dose: 1 units Insulin Glargine (Insulin Glargine 300 Units/3 Ml Insuln.Pen) 41 units SUBCUT BID [facility] Stop: 02/24/24 09:59 Last Admin: 02/25/23 21:52 Dose: 41 units Lidocaine HCl (Lidocaine 1% 50 Ml Vial) 0.1 ml INTRADERMA PREOP PRN PRN Reason: Venipuncture x 1 Dose Metoprolol Succinate (Metoprolol Succinate 50 Mg Tab.Er.24h) 50 mg PO DAILY [facility] Stop: 02/23/24 17:14 Last Admin: 02/25/23 08:29 Dose: 50 mg Metoprolol Tartrate (Metoprolol Tartrate 5 Mg/5 Ml Vial) 5 mg IV-PUSH Q4H PRN PRN Reason: Blood Pressure Stop: 02/25/24 13:56 Last Admin: 02/26/23 05:12 Dose: 5 mg Sodium Chloride (Sodium Chloride 0.9 % 10 Ml Syringe) 0 ml IV-PUSH PRN PRN PRN Reason: Flush Stop: 02/23/24 11:41 Last Admin: 02/25/23 13:43 Dose: 10 ml Sodium Chloride (Sodium Chloride 0.9 % 10 Ml Syringe) 0 ml IV-PUSH PRN PRN PRN Reason: Flush Stop: 02/25/24 20:28 Tramadol HCl (Tramadol 50 Mg Tablet) 50 mg PO Q6H PRN PRN Reason: Pain Stop: 08/22/23 17:06 Last Admin: 02/25/23 20:39 Dose: 50 mg Vancomycin HCl (Vancomycin - Pharmacy Dosing 1 Each Miscell) 1 each IV ONCE PRN; Protocol PRN Reason: ZZ.Pharmacy Consult A&P - Infectious Disease Assessment/Plan (1) Diabetic foot infection: Code(s): E11.628 - Type 2 diabetes mellitus with other skin complications; L08.9 - Local infection of the skin and subcutaneous tissue, unspecified Status: Acute (2) Osteomyelitis: Code(s): M86.9 - Osteomyelitis, unspecified Status: Acute Plan For surgical debridement today. MRI with obvious osteomyelitis as well as clinically given his wound and exposed bone excision of infected bone needs to be done. Blood cultures to date are negative. Wound cultures not sent due to the necrotic nature of the wound. Awaiting Dr. Han's surgical procedure today. Deep culture sent antibiotics were adjusted based on those results. In the meantime vancomycin and Zosyn to continue through surgery Documented By: Michael Ramírez MD 02/26/23842 Signed By: <Electronically signed by MD Michael Ramírez> 02/26/23845 [facility] Work Phone: [phone] 521-728310-03-2023 Progress note Author Geo Thomas [facility] February 25, 2023 2:21pm Note Date/Time February 25, 2023 1: 04pm [facility] [address] [place] [address] Hospitalist Progress Note Signed Patient: Sudeep Diego JR MR#: [id number] : 1950 Acct:[id number] Age/Sex: 72 / M Adm Date: 3 Loc: 4N Room: [address] [place] [address] Type: ADM IN Attending Dr: Geo Thomas DO Copies to: ~ Date of Service: 02/25/2023 Subjective Subjective Narrative: Patient did go to the MRI department today. But he said that lying flat in the MRI scanner exacerbated his left-sided sciatica pain. This caused him to be having a vibratory sensation in his left foot. They had a challenging time withthe MRI machine date be able to complete the images the patient tells me. The patient tells me that the portion of his foot by the heel was not imaged during this MRI scanning. Now that he is returned to his room he is asked his nurse for tramadol and baclofen which she has been using more the last 3 weeks becauseof difficulty walking on his left foot which is exacerbated his sciatica pain. He denies other acute symptoms at this time: No fevers chills. No nausea or upset stomach. He is ready to eat a light lunch. No headache or lightheadedness or dizziness. Exam Physical Exam Vital Signs: Temp Pulse Resp BP Pulse Ox O2 Del Method 97.9 F 59 L 12 163/79 H 99 Room Air 02/25/23 12:07 02/25/23 12:07 02/25/23 12:07 02/25/23 12:07 02/25/23 12:07 02/25/23 12:07 Narrative: General: Seated upright in bed. Awake. Alert. Oriented x3. Pulmonary: Clear to auscultation throughout. No wheezing. No rhonchi. No crackles. Cardiac: Regular rate and rhythm. No rubs or gallops to auscultation. GI: Abdomen soft, nontender to palpation, with normal bowel sounds auscultation. Extremities: Left foot is dressed in gauze. The toes are visible. No streakingcellulitis is visible going up the left leg. Right leg is normal. No edema in the ankle. No swelling or knots or cords in the calves bilaterally. Objective Lab Results 02/24/23 07:37 02/24/23 07:37 Microbiology Results Microbiology 02/23/23 12:07 Blood - Left Forearm Blood Culture - Preliminary No Growth 2 Days 02/23/23 12:05 Blood - Left Hand Blood Culture - Preliminary No Growth 2 Days Meds Allergies and Active Meds Allergies lisinopril Allergy (Verified 02/23/23 11:42) Swelling of Lip/Tongue/Throat metformin Adverse Reaction (Verified 02/23/23 11:42) Back Pain Active Meds: Active Medications Generic Name Dose Route Start Last Admin Trade Name Freq PRN Reason Stop Dose Admin Atorvastatin Calcium 40 mg 02/23/23 17:15 02/25/23 08:29 Atorvastatin 40 Mg Tablet PO 02/23/24 17:14 40 mg DAILY KACI Administration Baclofen 20 mg 02/23/23 17:15 02/25/23 08:29 Baclofen 20 Mg Tablet PO 02/23/24 17:14 20 mg DAILY KACI Administration Celecoxib 200 mg 02/24/23 09:00 02/25/23 08:29 Celecoxib 200 Mg Capsule PO 02/24/24 08:59 200 mg DAILY KACI Administration Clopidogrel Bisulfate 75 mg 02/23/23 17:15 02/25/23 08:29 Clopidogrel Bisulfate 75 Mg Tablet PO 02/23/24 17:14 75 mg DAILY KACI Administration Dextrose 0 gm 02/24/23 12:17 Dextrose 50% In Water 25 Gm/50 Ml Syringe IV-PUSH 02/24/24 12:16 PRN PRN Hypoglycemia Duloxetine HCl 60 mg 02/23/23 17:15 02/25/23 08:29 Duloxetine 60 Mg Capsule.Dr PO 02/23/24 17:14 60 mg DAILY KACI Administration Enoxaparin Sodium 40 mg 02/24/23 10:00 02/25/23 11:26 Enoxaparin 40 Mg/0.4 Ml Syringe SUBCUT 02/24/24 09:59 40 mg DAILY@10 KACI Administration Gabapentin 800 mg 02/23/23 22:00 02/25/23 08:29 Gabapentin 800 Mg Tablet PO 02/23/24 21:59 800 mg TID KACI Administration Glucose 0 gm 02/24/23 12:17 Dextrose 40% Gel 15 Gm Tube PO 02/24/24 12:16 PRN PRN Hypoglycemia Sodium Chloride 1,000 mls @ 75 mls/hr 02/23/23 17:15 02/25/23 01:43 0.9% Sodium Chloride 1,000 Ml IV 02/23/24 17:14 75 mls/hr .[id number] KACI Administration Piperacillin Sod/Tazobactam Sod 3.375 gm in 100 mls @ 200 mls/hr 02/23/23 20:30 02/25/23 08:29 Zosyn IV 200 mls/hr Q6H KACI Administration Vancomycin HCl 1.25 gm/ 275 mls @ 183.333 mls/hr 02/24/23 01:00 02/25/23 01:43 Dextrose IV 02/24/24 00:59 183.33 mls/hr Q12H KACI Administration Insulin Aspart 0 units 02/24/23 17:00 02/25/23 11:40 Insulin Aspart 300 Units/3 Ml Insuln.Pen SUBCUT 02/24/24 16:59 Not Given TID.AC.HS [facility] Protocol Insulin Glargine 41 units 02/24/23 10:00 02/25/23 11:24 Insulin Glargine 300 Units/3 Ml Insuln.Pen SUBCUT 02/24/24 09:59 Not Given BID KACI Metoprolol Succinate 50 mg 02/23/23 17:15 02/25/23 08:29 Metoprolol Succinate 50 Mg Tab.Er.24h PO 02/23/24 17:14 50 mg DAILY KACI Administration Sodium Chloride 0 ml 02/23/23 11:42 Sodium Chloride 0.9 % 10 Ml Syringe IV-PUSH 02/23/24 11:41 PRN PRN Flush Tramadol HCl 50 mg 02/23/23 17:45 02/25/23 06:02 Tramadol 50 Mg Tablet PO 08/22/23 17:06 50 mg Q6H PRN Administration Pain Vancomycin HCl 1 each 02/23/23 17:13 Vancomycin - Pharmacy Dosing 1 Each Miscell IV ONCE PRN ZZ.Pharmacy Consult Protocol A&P - Hospitalist Assessment/Plan (1) Diabetic foot infection: (2) Diabetes mellitus due to underlying condition with diabetic neuropathy, unspecified: (3) Osteomyelitis: (4) PAD (peripheral artery disease): (5) Hypertension: (6) Sciatica, left side: Plan Plan: IV zosyn and vancomycin, await cultures I appreciate the consult from podiatry and understand surgery will occur tomorrow I appreciate the input from vascular surgery lovenox 40 mg sc daily for DVT prophylaxis Awaiting the results of the MRI of the left foot. We will check hemoglobin A1c and check BMP and CBC tomorrow with labs. Documented By: Geo Thomas DO 1302 Signed By: <Electronically signed by Geo Thomas DO> 02/25/23 1421 [facility] Work Phone: [phone]) 617-885010-03-2023 Progress note Author iMchael Ramírez [facility] February 25, 2023 10:41am Note Date/Time February 25, 2023 9: 08am [facility] [address] [place] [address] Infect. Disease Progress Note Signed Patient: Sudeep Diego JR MR#: [id number] : 1950 Acct:[id number] Age/Sex: 72 / M Adm Date: 3 Loc: 4N Room: [address] [place] [address] Type: ADM IN Attending Dr: Geo Thomas DO Copies to: ~ Date of Service: 02/25/2023 Subjective Interval history: Pt is awake and alert laying comfortable in the bed upon me walking into the room. No acute events overnight. States his foot pain is tolerable for him. Heate supper last night and tolerated it well. No new concerns to report at this time. Exam Physical Exam Vital Signs: Temp Pulse Resp BP Pulse Ox O2 Del Method 98.1 F 61 12 169/89 H 99 Room Air 02/25/23 08:09 02/25/23 08:09 02/25/23 08:09 02/25/23 08:09 02/25/23 08:09 02/25/23 08:09 Const General: cooperative, comfortable and no acute distress Orientation: alert, awake and oriented x3 HEENT Head: normal to inspection Ears: hearing grossly normal bilaterally Nose: external nose normal Eyes General: appearance normal, both eyes and all related structures Neck Neck: normal visual inspection, trachea midline and supple Resp Effort & Inspection: normal respiratory effort and able to speak in complete sentences Auscultation: clear to auscultation bilaterally, no rales, no rhonchi and no wheezes Cardio Rate: regular rate Rhythm: regular rhythm GI Inspection: non-distended Palpation: soft, no hepatosplenomegaly, no guarding and nontender Neuro General: patient alert, patient awake and patient oriented x3 Cognition: normal cognition Speech: speech normal Extrem General: no clubbing, cyanosis or edema Other: Upon pulling down the dressing over the left foot, there is an area of bone exposure with active drainage to the lateral aspect of the foot near the left fifth metatarsal. Odor noted with pulling back the dressing. Some necrotic material appreciated. The area is tender to touch. The rest of the foot is areas of callus formation but no obvious exposed bone Psych Appearance: grossly normal Mental Status: mental status grossly normal Mood: congruent mood Affect: normal affect Objective Labs CBC/BMP: CBC, BMP 02/24/23 07:37 Sodium 136 Potassium 3.8 Chloride 104 Carbon Dioxide 27.2 Anion Gap 8.6 BUN 9 Creatinine 0.61 L Calcium 8.1 L Labs: 02/24/23 07:37 BUN 9 Creatinine 0.61 L Microbiology Microbiology: Microbiology - Results from entire visit 02/23/23 12:07 Blood - Left Forearm Blood Culture - Preliminary No Growth 1 Day 02/23/23 12:05 Blood - Left Hand Blood Culture - Preliminary No Growth 1 Day Allergies and Medications Allergies and Active Meds Allergies lisinopril Allergy (Verified 02/23/23 11:42) Swelling of Lip/Tongue/Throat metformin Adverse Reaction (Verified 02/23/23 11:42) Back Pain Active Medications Atorvastatin Calcium (Atorvastatin 40 Mg Tablet) 40 mg PO DAILY KACI Stop: 02/23/24 17:14 Last Admin: 02/25/23 08:29 Dose: 40 mg Baclofen (Baclofen 20 Mg Tablet) 20 mg PO DAILY KACI Stop: 02/23/24 17:14 Last Admin: 02/25/23 08:29 Dose: 20 mg Celecoxib (Celecoxib 200 Mg Capsule) 200 mg PO DAILY KACI Stop: 02/24/24 08:59 Last Admin: 02/25/23 08:29 Dose: 200 mg Clopidogrel Bisulfate (Clopidogrel Bisulfate 75 Mg Tablet) 75 mg PO DAILY KACI Stop: 02/23/24 17:14 Last Admin: 02/25/23 08:29 Dose: 75 mg Dextrose (Dextrose 50% In Water 25 Gm/50 Ml Syringe) 0 gm IV-PUSH PRN PRN PRN Reason: Hypoglycemia Stop: 02/24/24 12:16 Duloxetine HCl (Duloxetine 60 Mg Capsule.Dr) 60 mg PO DAILY [facility] Stop: 02/23/24 17:14 Last Admin: 02/25/23 08:29 Dose: 60 mg Enoxaparin Sodium (Enoxaparin 40 Mg/0.4 Ml Syringe) 40 mg SUBCUT DAILY@10 [facility] Stop: 02/24/24 09:59 Last Admin: 02/24/23 10:16 Dose: 40 mg Gabapentin (Gabapentin 800 Mg Tablet) 800 mg PO TID [facility] Stop: 02/23/24 21:59 Last Admin: 02/25/23 08:29 Dose: 800 mg Glucose (Dextrose 40% Gel 15 Gm Tube) 0 gm PO PRN PRN PRN Reason: Hypoglycemia Stop: 02/24/24 12:16 Sodium Chloride (0.9% Sodium Chloride 1,000 Ml) 1,000 mls @ 75 mls/hr IV .[id number] [facility] Stop: 02/23/24 17:14 Last Admin: 02/25/23 01:43 Dose: 75 mls/hr Piperacillin Sod/Tazobactam Sod (Zosyn) 3.375 gm in 100 mls @ 200 mls/hr IV Q6HSCH Last Admin: 02/25/23 08:29 Dose: 200 mls/hr Vancomycin HCl 1.25 gm/ (Dextrose) 275 mls @ 183.333 mls/hr IV Q12H [facility] Stop: 02/24/24 00:59 Last Admin: 02/25/23 01:43 Dose: 183.33 mls/hr Insulin Aspart (Insulin Aspart 300 Units/3 Ml Insuln.Pen) 0 units SUBCUT TID.AC.[facility]; Protocol Stop: 02/24/24 16:59 Last Admin: 02/25/23 08:33 Dose: Not Given Insulin Glargine (Insulin Glargine 300 Units/3 Ml Insuln.Pen) 41 units SUBCUT BID [facility] Stop: 02/24/24 09:59 Last Admin: 02/24/23 20:55 Dose: 41 units Metoprolol Succinate (Metoprolol Succinate 50 Mg Tab.Er.24h) 50 mg PO DAILY KACI Stop: 02/23/24 17:14 Last Admin: 02/25/23 08:29 Dose: 50 mg Sodium Chloride (Sodium Chloride 0.9 % 10 Ml Syringe) 0 ml IV-PUSH PRN PRN PRN Reason: Flush Stop: 02/23/24 11:41 Tramadol HCl (Tramadol 50 Mg Tablet) 50 mg PO Q6H PRN PRN Reason: Pain Stop: 08/22/23 17:06 Last Admin: 02/25/23 06:02 Dose: 50 mg Vancomycin HCl (Vancomycin - Pharmacy Dosing 1 Each Miscell) 1 each IV ONCE PRN; Protocol PRN Reason: ZZ.Pharmacy Consult A&P - Infectious Disease Assessment/Plan (1) Diabetic foot infection: Code(s): E11.628 - Type 2 diabetes mellitus with other skin complications; L08.9 - Local infection of the skin and subcutaneous tissue, unspecified Status: Acute (2) Osteomyelitis: Code(s): M86.9 - Osteomyelitis, unspecified Status: Acute Plan 72-year-old male with history of poorly controlled diabetes mellitus who presented to the emergency room with diabetic foot infection and exposed bone ofthe fifth metatarsal. He presented with a leukocytosis of 13 and x-ray showed findings suggestive of underlying osteomyelitis. Patient follows with both podiatry and vascular surgery in the outpatient setting. Per vascular surgery note, he recently underwent a left lower extremity arteriogram with balloon angioplasty of the left anterior tibial artery and tibial peroneal trunk in December. He had postprocedural ABIs a few weeks ago which were normal. Patient follows with Dr. Han with serial debridements in his office. From infectious disease perspective, we will maintain him on IV vancomycin and Zosyn. Podiatry saw the patient yesterday and likely plans for surgery after the MRI is completed. Defer surgical debridement to podiatry/vascular surgery team. We will continue to follow the cultures and narrow spectrum as appropriate. MRI ofthe left foot is still pending. Documented By: Gabino Hyman DO, RES 02/25/23 090 4 Signed By: <Electronically signed by DO KELLE Hyman> 02/25/23 0908 <Electronically signed by MD Michael Ramírez> 02/25/23 1041 [facility] Work Phone: [phone] Consult note Author Dhruv Bautista [facility] February 24, 2023 4:15pm Note Date/Time February 24, 2023 8: 50am [facility] [address] [place] [address] Vascular Surgery Consult Note Signed Patient: Sudeep Diego JR MR#: [id number] : 1950 Acct:[id number] Age/Sex: 72 / M Adm Date: 3 Loc: Room: [address] [place] [address] Type: ADM IN Attending Dr: Brennan Cerrato MD Copies to: MD Pamela Cruz APRN Jeffrey L Buehrer, MD Marc Naderer, MD~ HPI Consult HPI Reason for consult: History of PAD with nonhealing diabetic ulcer History of present illness: This is a well-known patient to our service. He recently underwent left lower extremity arteriogram with balloon angioplasty of the left anterior tibial artery and tibial peroneal trunk in December. He was seen a few weeks ago in the office with postprocedure ABIs which were normal. At that time his wound seemedto be making some progress and he continued following with podiatry specialist Dr. Han as an outpatient with serial debridements in the office. He tells me this morning that his wound became infected and wound has now worsened once again. He was admitted through the emergency department last evening with worsening diabetic foot infection. Vascular surgery has been consulted to evaluate his blood supply for healing. cc:: CC: Brennan Cerrato MD Data of Consult Consult date: 02/24/2023 Requesting Physician: Brennan Cerrato MD Review of Systems Review of Systems All other systems reviewed & are negative unless noted below or in HPI [facility] Medical History Singh's palsy Cataract Diabetes GERD (gastroesophageal reflux disease) Hypertension Prostate cancer Surgical History H/O hernia repair H/O repair of rotator cuff Right History of appendectomy Hx of cholecystectomy Social History Smoking Status: Light tobacco smoker Tobacco Type: cigars Substance Use Type: None Substance Abuse Comment: former drinker quit several years ago Allergies & Active Medications Medications and Allergies Allergies lisinopril Allergy (Verified 02/23/23 11:42) Swelling of Lip/Tongue/Throat metformin Adverse Reaction (Verified 02/23/23 11:42) Back Pain Exam Physical Exam Vital Signs: Temp Pulse Resp BP Pulse Ox O2 Del Method 98.1 F 65 16 150/69 H 96 Room Air 02/24/23 07:30 02/24/23 07:30 02/24/23 07:30 02/24/23 07:30 02/24/23 07:30 02/24/23 07:30 Narrative: 72-year-old male, no acute distress. He is resting comfortably in his bed this morning on my rounds. He wakes easily to voice. He is alert and oriented x3. He has no shortness of breath with our conversation. I did removethe dressings from the left foot to evaluate his wounds this morning. He has large ulceration on the lateral aspect of his foot which is 2-3 times bigger than it was in our office 3 weeks ago. The wound is covered in slough and thereappears to be visualized tendon present. The wound is quite malodorous. He hasadditional dry ulceration over the first metatarsal head region. His foot is warm and well-perfused with easily palpable DP pulse. PT nonpalpable, biphasic with hand-held Doppler. Const General: cooperative, comfortable and no acute distress Results Labs 02/24/23 07:37 02/23/23 12:05 Labs: Laboratory Results - last 24 hr 02/23/23 02/23/23 02/23/23 12:05 12:05 12:05 Corrected WBC 13.0 H Uncorrected WBC Count 13.0 H RBC 4.61 Hgb 13.8 Hct 40.6 MCV 88.1 MCH 30.0 MCHC 34.1 RDW 14.0 Plt Count 363 MPV 8.6 Neut % (Auto) 69.6 Lymph % (Auto) 18.7 [place] % (Auto) 10.0 Eos % (Auto) 1.1 Baso % (Auto) 0.6 Nucleat RBC Rel Count 0.1 Neut # (Auto) 9.0 H Lymph # (Auto) 2.4 [place] # (Auto) 1.3 H Eos # (Auto) 0.1 Baso # (Auto) 0.1 Monocyte Dist Width 18.95 PHA Creatinine Clear 97.63 Sodium 133 L Potassium 3.8 Chloride 101 Carbon Dioxide 25.0 Anion Gap 10.8 BUN 13 Creatinine 0.74 Est GFR (CKD-EPI) > 60.0 Glucose 188 H POC Glucose Lactic Acid 2.4 H* Calcium 8.7 Total Bilirubin 0.9 AST 16 ALT 31 Alkaline Phosphatase 94 Total Protein 7.0 Albumin 3.6 Globulin 3.4 Albumin/Globulin Ratio 1.1 02/23/23 02/24/23 02/24/23 17:09 07:37 08:02 Corrected WBC 11.9 H Uncorrected WBC Count RBC 4.13 Hgb 12.2 L Hct 36.5 L MCV 88.4 MCH 29.6 MCHC 33.5 RDW 13.8 Plt Count 290 MPV 8.2 Neut % (Auto) Lymph % (Auto) [place] % (Auto) Eos % (Auto) Baso % (Auto) Nucleat RBC Rel Count Neut # (Auto) Lymph # (Auto) [place] # (Auto) Eos # (Auto) Baso # (Auto) Monocyte Dist Width PHA Creatinine Clear Sodium Potassium Chloride Carbon Dioxide Anion Gap BUN Creatinine Est GFR (CKD-EPI) Glucose POC Glucose 169 Lactic Acid 1.9 Calcium Total Bilirubin AST ALT Alkaline Phosphatase Total Protein Albumin Globulin Albumin/Globulin Ratio A&P - Vascular (1) Diabetic foot infection: Code(s): E11.628 - Type 2 diabetes mellitus with other skin complications; L08.9 - Local infection of the skin and subcutaneous tissue, unspecified Status: Acute (2) PAD (peripheral artery disease): Plan: This patient has known PAD with recent intervention about 6 weeks ago. His ABIswere normal 3 weeks ago in the office and by physical evaluation today he remains with strong palpable DP pulse on the left. PT biphasic with hand-held Doppler. His wound healing will certainly depend on good diabetic control, offloading, proper wound care, good nutritional support and adequate protein intake. This was all discussed with him at length. It appears he has good blood supply for wound healing by physical exam. We will follow along during his inpatient stay here in the hospital. This is Dr. Bautista dictating. The patient was seen on afternoon rounds and wasexamined. He has significant injury to his foot which is potentially limb threatening. His recent revascularization appears patent at this time as his ankle-brachial index was normal recently in office and today on physical examination he has an easily palpable dorsalis pedis pulse. We will follow along during his hospitalization but I do not believe he needs any further revascularization at this time. Code(s): I73.9 - Peripheral vascular disease, unspecified Status: Acute Documented By: Pamela Berry APRN 02/24/23 0 845 Signed By: <Electronically signed by LELAND Berry> 02/24/23 0850 <Electronically signed by MD Dhruv Bautista> 02/24/23 4680 [facility] Work Phone: 1(472) 743-737210-02-2023 Consult note Author Rohan Han [facility] February 24, 2023 3:50pm Note Date/Time February 24, 2023 3: 45pm [facility] [address] [place] [address] Podiatry Consult Note Signed Patient: Sudeep Diego JR MR#: [id number] : 1950 Acct:[id number] Age/Sex: 72 / M Adm Date: 3 Loc: 4 Room: [address] [place] [address] Type: ADM IN Attending Dr: Brennan Cerrato MD Copies to: MD Tejas Cruz MD Nicholas Brown, DPM~ HPI Data of Consult Consult Date: 02/24/23 Requesting Physician: Brennan Cerrato MD Primary Care Provider: Tejas Stevens MD Consult Narrative History of present illness: Mr. Diego is a 72 year old male that is seen today for left foot osteomyelitis to the fifth metatarsal with history of PVD dry gangrene and is type II diabetic with peripheral vascular disease. Patient denies nausea fever vomiting chills has been seen in the office for the past few weeks post vascularprocedure with dry gangrene to the lateral aspect of the left foot.. Patient has had periodic debridements of the wound with increased breakdown and now exposed tendon and fifth metatarsal head present and decision made for admission. Patient states and proved feeling and warmth to the foot post vascular mention and was admitted for MRI as was ordered in the past and unable to have approved and therefore patient will most likely have surgery in the nearfuture. Patient denies pain to the left foot and is seen today resting comfortably bedside with family present. Review of Systems Constitutional Constitutional: Reports system reviewed and no additional complaints, except as documented Cardiovascular Comments: Denies chest pain shortness of breath or regular rhythm Gastrointestinal Comments: Denies abdominal pain loose stool with IV antibiotics Musculoskeletal Comments: Positive to osteoarthritis but denies any current aches and pains [facility] Medical History Singh's palsy Cataract Diabetes GERD (gastroesophageal reflux disease) Hypertension Prostate cancer Surgical History H/O hernia repair H/O repair of rotator cuff Right History of appendectomy Hx of cholecystectomy Social History Smoking Status: Light tobacco smoker Tobacco Type: cigars Substance Use Type: None Substance Abuse Comment: former drinker quit several years ago Meds Medications and Allergies Allergies lisinopril Allergy (Verified 02/23/23 11:42) Swelling of Lip/Tongue/Throat metformin Adverse Reaction (Verified 02/23/23 11:42) Back Pain Home Medications atorvastatin 40 mg tablet 40 mg PO DAILY 01/13/23 [History Confirmed 02/23/23] baclofen 20 mg tablet 20 mg PO DAILY 01/13/23 [History Confirmed 02/23/23] celecoxib 200 mg capsule 200 mg PO DAILY 01/13/23 [History Confirmed 02/23/23] clopidogrel 75 mg tablet (Plavix) 75 mg PO DAILY angioplasty left leg 3 months #90 tabs 01/13/23 [Rx Confirmed 02/23/23] duloxetine 60 mg capsule,delayed release 60 mg PO DAILY 01/13/23 [History Confirmed 02/23/23] flash glucose sensor (FreeStyle Shawn 2 Sensor kit) 01/13/23 [History Confirmed 02/23/23] gabapentin 800 mg tablet 800 mg PO TID 01/13/23 [History Confirmed 02/23/23] metoprolol succinate 50 mg tablet,extended release 24 hr 50 mg PO DAILY 01/13/23[History Confirmed 02/23/23] tramadol 50 mg tablet 50 mg PO Q6-12H PRN Pain 01/13/23 [History Confirmed 02/23/23] insulin glargine 100 unit/mL (3 mL) subcutaneous pen (Basaglar KwikPen U-100 Insulin) 41 unit subcut 2XD 02/23/23 [History Confirmed 02/24/23] insulin lispro 100 unit/mL subcutaneous pen (Humalog KwikPen (U-100) Insulin) See Rx Instructions .Route .COMPLEX 02/23/23 [History Confirmed 02/24/23] Exam Physical Exam Vital Signs: Temp Pulse Resp BP Pulse Ox O2 Del Method 98.6 F 66 20 156/84 H 98 Room Air 02/24/23 15:13 02/24/23 15:13 02/24/23 15:13 02/24/23 15:13 02/24/23 15:13 02/24/23 15:13 Psych Other: LE EXAM: DERM: Ulceration present to the lateral aspect of the left foot that measures 5 cmx 2 cm 0.5 cm depth to bony tissue. Fifth metatarsal head neck present and exposed. Slight induration surrounding ulceration with necrosis and necrotic gangrenous tissue to the distal plantar aspect of the ulcerative region with exposed tendon dorsally of the EDL tendon.. Good granulation tissue noted surrounding the wound area with negative crepitus VASC: positive dp with barely palpable PT pulse to the left foot NEURO: gross sensation absent to left and right foot MS: Negative POP to bilateral calf regions or to left foot ulcer XRAY: Reviewed radiographic findings of exposed left fifth metatarsal head suggestive of osteomyelitis MRI: Await MRI ordered by hospitalist on admission Results Labs 02/24/23 07:37 02/24/23 07:37 WBC 11.9 Microbiology Microbiology: Microbiology - Results from entire visit 02/23/23 12:07 Blood - Left Forearm Blood Culture - Preliminary No Growth 1 Day 02/23/23 12:05 Blood - Left Hand Blood Culture - Preliminary No Growth 1 Day Assessment/Plan (1) Acute hematogenous osteomyelitis, left ankle and foot: Code(s): M86.072 - Acute hematogenous osteomyelitis, left ankle and foot (2) 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: Code(s): L97.526 - Non-pressure chronic ulcer of other part of left foot with bone involvement without evidence of necrosis (3) 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 Patient to continue with IV antibiotics. 2. Await MRI findings for specific surgical intervention in the near future 3. Discussed patient with Dr. Bautista today at bedside with healing noted but induration noted distally and will be available for any issue as far for healingin the future. No further intervention by vascular at this time as patient doeshave pulses. 4. Discussed with patient family most likely operative option post MRI will be I&D of left foot with removal of fifth toe and partial fifth metatarsal and willmost likely require wound VAC healing and future and await MRI if further surgical intervention is necessary. Patient agrees to proposed surgery in the futureand is to be scheduled for surgery once MRI findings complete and will discuss with patient prior to procedure. Decision for surgery today based on findings and podiatry to follow Documented By: Rohan Han DPM 02/24/23 1539 Signed By: <Electronically signed by TOY Han> 02/24/23 1550 [facility] Work Phone: 1(385) 222-301210-02-2023 Progress note Author Brennan Cerrato [facility] February 24, 2023 12:34pm Note Date/Time February 24, 2023 12 :34pm [facility] [address] [place] [address] Hospitalist Progress Note Signed Patient: Sudeep Diego JR MR#: [id number] : 1950 Acct:[id number] Age/Sex: 72 / M Adm Date: 3 Loc: Room: [address] [place] [address] Type: ADM IN Attending Dr: Brennan Cerrato MD Copies to: ~ Date of Service: 02/24/2023 Subjective Subjective Narrative: Denies chest pain or shortness of breath, denies any foot pain Exam Physical Exam Vital Signs: Temp Pulse Resp BP Pulse Ox O2 Del Method 98.2 F 65 18 158/84 H 100 Room Air 02/24/23 11:17 02/24/23 07:30 02/24/23 11:17 02/24/23 11:17 02/24/23 11:17 02/24/23 11:17 Narrative: Constitutional Constitutional Exam: no acute distress, average body habitus and cooperative HEENT Exam Head Exam: normocephalic and atraumatic Eye Exam: EOMI Respiratory Exam Respiratory Exam: no respiratory distress Cardiovascular Exam Cardiovascular exam: RR Skin Exam Skin Exam: intact and dry Neurological Exam Neurological Exam: alert, no altered mental status or normal speech Psychiatric Exam Psychiatric Exam: normal affect and normal thought process Additional findings Additional findings: Patient left foot with evidence of fifth metatarsal bone exposure there is skin breakdown there is also muscle exposed there is some mild drainage noted no significant cellulitis up into the leg Objective Lab Results 02/24/23 07:37 02/24/23 07:37 Microbiology Results Microbiology 02/23/23 12:07 Blood - Left Forearm Blood Culture - Preliminary No Growth 1 Day 02/23/23 12:05 Blood - Left Hand Blood Culture - Preliminary No Growth 1 Day Meds Allergies and Active Meds Allergies lisinopril Allergy (Verified 02/23/23 11:42) Swelling of Lip/Tongue/Throat metformin Adverse Reaction (Verified 02/23/23 11:42) Back Pain Active Meds: Active Medications Generic Name Dose Route Start Last Admin Trade Name Freq PRN Reason Stop Dose Admin Atorvastatin Calcium 40 mg 02/23/23 17:15 02/24/23 08:44 Atorvastatin 40 Mg Tablet PO 02/23/24 17:14 40 mg DAILY KACI Administration Baclofen 20 mg 02/23/23 17:15 02/24/23 08:45 Baclofen 20 Mg Tablet PO 02/23/24 17:14 20 mg DAILY KACI Administration Celecoxib 200 mg 02/24/23 09:00 02/24/23 08:45 Celecoxib 200 Mg Capsule PO 02/24/24 08:59 200 mg DAILY KACI Administration Clopidogrel Bisulfate 75 mg 02/23/23 17:15 02/24/23 08:45 Clopidogrel Bisulfate 75 Mg Tablet PO 02/23/24 17:14 75 mg DAILY KACI Administration Dextrose 0 gm 02/24/23 12:17 Dextrose 50% In Water 25 Gm/50 Ml Syringe IV-PUSH 02/24/24 12:16 PRN PRN Hypoglycemia Duloxetine HCl 60 mg 02/23/23 17:15 02/24/23 08:44 Duloxetine 60 Mg Capsule.Dr PO 02/23/24 17:14 60 mg DAILY KACI Administration Enoxaparin Sodium 40 mg 02/24/23 10:00 02/24/23 10:16 Enoxaparin 40 Mg/0.4 Ml Syringe SUBCUT 02/24/24 09:59 40 mg DAILY@10 KACI Administration Gabapentin 800 mg 02/23/23 22:00 02/24/23 08:44 Gabapentin 800 Mg Tablet PO 02/23/24 21:59 800 mg TID KACI Administration Glucose 0 gm 02/24/23 12:17 Dextrose 40% Gel 15 Gm Tube PO 02/24/24 12:16 PRN PRN Hypoglycemia Sodium Chloride 1,000 mls @ 75 mls/hr 02/23/23 17:15 02/24/23 09:49 0.9% Sodium Chloride 1,000 Ml IV 02/23/24 17:14 75 mls/hr .[id number] KACI Administration Piperacillin Sod/Tazobactam Sod 3.375 gm in 100 mls @ 200 mls/hr 02/23/23 20:30 02/24/23 08:46 Zosyn IV 200 mls/hr Q6H KACI Administration Vancomycin HCl 1.25 gm/ 275 mls @ 183.333 mls/hr 02/24/23 01:00 02/24/23 00:55 Dextrose IV 02/24/24 00:59 183.33 mls/hr Q12H KACI Administration Insulin Aspart 0 units 02/24/23 17:00 Insulin Aspart 300 Units/3 Ml Insuln.Pen SUBCUT 02/24/24 16:59 TID.AC.HS [facility] Protocol Insulin Glargine 41 units 02/24/23 10:00 02/24/23 11:55 Insulin Glargine 300 Units/3 Ml Insuln.Pen SUBCUT 02/24/24 09:59 41 units BID KACI Administration Metoprolol Succinate 50 mg 02/23/23 17:15 02/24/23 08:45 Metoprolol Succinate 50 Mg Tab.Er.24h PO 02/23/24 17:14 50 mg DAILY KACI Administration Sodium Chloride 0 ml 02/23/23 11:42 Sodium Chloride 0.9 % 10 Ml Syringe IV-PUSH 02/23/24 11:41 PRN PRN Flush Tramadol HCl 50 mg 02/23/23 17:45 02/24/23 08:44 Tramadol 50 Mg Tablet PO 08/22/23 17:06 50 mg Q6H PRN Administration Pain Vancomycin HCl 1 each 02/23/23 17:13 Vancomycin - Pharmacy Dosing 1 Each Miscell IV ONCE PRN ZZ.Pharmacy Consult Protocol A&P - Hospitalist Assessment/Plan (1) Diabetic foot infection: Plan diabetic foot infection Diabetes mellitus, Hyperlipidemia Plan: IV zosyn and vancomycin, await cultures consult podiatry and vascular surgery lovenox for DVT prophylaxis Obtain MRI of the left foot to r/o osteomyelitis Documented By: Brennan Cerrato MD 02/24/233 Signed By: <Electronically signed by Brennan Cerrato MD> 02/24/23 6046 [facility] Work Phone: [phone]) 878-553610-02-2023 History and physical note Author Brennan Cerrato [facility] February 24, 2023 11:20am Note Date/Time February 23, 2023 4: 59pm [facility] [address] [place] [address] Hospitalist H&P Signed Patient: Sudeep Diego JR MR#: [id number] : 1950 Acct:[id number] Age/Sex: 72 / M Adm Date: 3 Loc: Room: [address] [place] [address] Type: ADM IN Attending Dr: Brennan Cerrato MD Copies to: MD Tejas Cruz MD~ HPI DATE OF EXAMINATION: 02/23/23 CHIEF COMPLAINT: Foot ulcer HISTORY OF PRESENT ILLNESS: 72-year male presents ED with a complaint of having left foot issues. The patient has diabetic foot infection. The patient was sent over here by Dr. Han may have been surgery and the monitoring left foot. The patient arrives with bone exposed. The patient does not have any fevers chills no chest pain ortrouble breathing. The patient received zosyn and vancomycin and admitted for further management Review of Systems Review of Systems All other systems reviewed & are negative unless noted below or in HPI [facility] Medical History Singh's palsy Cataract Diabetes GERD (gastroesophageal reflux disease) Hypertension Prostate cancer Surgical History H/O hernia repair H/O repair of rotator cuff Right History of appendectomy Hx of cholecystectomy Social History Smoking Status: Current every day smoker Tobacco Type: cigars Substance Use Type: Marijuana Meds Medications and Allergies Allergies lisinopril Allergy (Verified 02/23/23 11:42) Swelling of Lip/Tongue/Throat metformin Adverse Reaction (Verified 02/23/23 11:42) Back Pain Home Medications atorvastatin 40 mg tablet 40 mg PO DAILY 01/13/23 [History Confirmed 02/23/23] baclofen 20 mg tablet 20 mg PO DAILY 01/13/23 [History Confirmed 02/23/23] celecoxib 200 mg capsule 200 mg PO DAILY 01/13/23 [History Confirmed 02/23/23] clopidogrel 75 mg tablet (Plavix) 75 mg PO DAILY angioplasty left leg 3 months #90 tabs 01/13/23 [Rx Confirmed 02/23/23] duloxetine 60 mg capsule,delayed release 60 mg PO DAILY 01/13/23 [History Confirmed 02/23/23] flash glucose sensor (FreeStyle Shawn 2 Sensor kit) 01/13/23 [History Confirmed 02/23/23] gabapentin 800 mg tablet 800 mg PO TID 01/13/23 [History Confirmed 02/23/23] metoprolol succinate 50 mg tablet,extended release 24 hr 50 mg PO DAILY 01/13/23[History Confirmed 02/23/23] tramadol 50 mg tablet 50 mg PO Q6-12H PRN Pain 01/13/23 [History Confirmed 02/23/23] insulin glargine 100 unit/mL (3 mL) subcutaneous pen (Basaglar KwikPen U-100 Insulin) 41 unit subcut 2XD 02/23/23 [History Confirmed 02/24/23] insulin lispro 100 unit/mL subcutaneous pen (Humalog KwikPen (U-100) Insulin) See Rx Instructions .Route .COMPLEX 02/23/23 [History] Exam Physical Exam Vital Signs: Temp Pulse Resp BP Pulse Ox O2 Del Method 97.4 F L 70 16 163/78 H 96 Room Air 02/23/23 12:39 02/23/23 16:21 02/23/23 16:21 02/23/23 16:21 02/23/23 16:21 02/23/23 16:21 Narrative: Constitutional Constitutional Exam: no acute distress, average body habitus and cooperative HEENT Exam Head Exam: normocephalic and atraumatic Eye Exam: EOMI Respiratory Exam Respiratory Exam: no respiratory distress Cardiovascular Exam Cardiovascular exam: RR Skin Exam Skin Exam: intact and dry Neurological Exam Neurological Exam: alert, no altered mental status or normal speech Psychiatric Exam Psychiatric Exam: normal affect and normal thought process Additional findings Additional findings: Patient left foot with evidence of fifth metatarsal bone exposure there is skin breakdown there is also muscle exposed there is some mild drainage noted no significant cellulitis up into the leg Results Lab Results Labs: Laboratory Last Values Corrected WBC 13.0 X10E3/uL (4.1-10.5) H 02/23/23 12:05 Uncorrected WBC Count 13.0 x10E3/uL (4.1-10.5) H 02/23/23 12:05 RBC 4.61 X10E6/uL (3.90-5.60) 02/23/23 12:05 Hgb 13.8 g/dL (13.0-17.0) 02/23/23 12:05 Hct 40.6 % (38.8-50.0) 02/23/23 12:05 MCV 88.1 fl (83.5-101) 02/23/23 12:05 MCH 30.0 pg (27.5-35.2) 02/23/23 12:05 MCHC 34.1 g/dL (32.5-35.6) 02/23/23 12:05 RDW 14.0 % (12.0-14.8) 02/23/23 12:05 Plt Count 363 x10E3/uL (150-450) 02/23/23 12:05 MPV 8.6 fl (6.6-10.1) 02/23/23 12:05 Neut % (Auto) 69.6 % (.) 02/23/23 12:05 Lymph % (Auto) 18.7 % (.) 02/23/23 12:05 [place] % (Auto) 10.0 % (.) 02/23/23 12:05 Eos % (Auto) 1.1 % (.) 02/23/23 12:05 Baso % (Auto) 0.6 % (.) 02/23/23 12:05 Nucleat RBC Rel Count 0.1 /100 WBC (0-0.5) 02/23/23 12:05 Neut # (Auto) 9.0 x10E3/uL (1.8-7.7) H 02/23/23 12:05 Lymph # (Auto) 2.4 x10E3/uL (1.00-4.8) 02/23/23 12:05 [place] # (Auto) 1.3 x10E3/uL (0.0-0.8) H 02/23/23 12:05 Eos # (Auto) 0.1 x10E3/uL (0.0-0.45) 02/23/23 12:05 Baso # (Auto) 0.1 x10E3/uL (0.0-0.2) 02/23/23 12:05 Monocyte Dist Width 18.95 % (0.00-20.00) 02/23/23 12:05 PHA Creatinine Clear 97.63 02/23/23 12:05 Sodium 133 mmol/L (136-145) L 02/23/23 12:05 Potassium 3.8 mmol/L (3.5-5.1) 02/23/23 12:05 Chloride 101 mmol/L (98-107) 02/23/23 12:05 Carbon Dioxide 25.0 mmol/L (21.0-31.0) 02/23/23 12:05 Anion Gap 10.8 mEq/L (6.0-15.0) 02/23/23 12:05 BUN 13 mg/dL (7-25) 02/23/23 12:05 Creatinine 0.74 mg/dL (0.70-1.30) 02/23/23 12:05 Est GFR (CKD-EPI) > 60.0 mL/Min 02/23/23 12:05 Glucose 188 mg/dL (70-100) H 02/23/23 12:05 Lactic Acid 2.4 mmol/L (0.5-2.2) H* 02/23/23 12:05 Calcium 8.7 mg/dL (8.6-10.3) 02/23/23 12:05 Total Bilirubin 0.9 mg/dl (0.3-1.0) 02/23/23 12:05 AST 16 U/L (13-39) 02/23/23 12:05 ALT 31 U/L (7-52) 02/23/23 12:05 Alkaline Phosphatase 94 U/L (34-104) 02/23/23 12:05 Total Protein 7.0 gm/dL (6.4-8.9) 02/23/23 12:05 Albumin 3.6 gm/dL (3.5-5.7) 02/23/23 12:05 Globulin 3.4 gm/dL 02/23/23 12:05 Albumin/Globulin Ratio 1.1 02/23/23 12:05 Assessment & Plan Assessment/Plan (1) Diabetic foot infection: Plan diabetic foot infection Diabetes mellitus, Hyperlipidemia Plan: IV zosyn and vancomycin, await cultures consult podiatry and infectious disease lovenox for DVT prophylaxis Obtain MRI of the left foot to r/o osteomyelitis IP vs OBS Justification Based on differential dx, clinical care plan, and risk of adverse events, if untreated, in my clinical judgement this patient requires an acute care setting as: INPATIENT because of an expectation of an over 2 midnight stay. Estimated length of stay (# of days): 3 Documented By: Brennan Cerrato MD 02/23/23 1656 Signed By: <Electronically signed by Brenann Cerrato MD> 02/24/23 1120 [facility] Work Phone: 1(490) 209-234410-02-2023 Consult note Author Michael Ramírez [facility] February 24, 2023 10:47am Note Date/Time February 24, 2023 8: 47am [facility] [address] [place] [address] Infect. Disease Consult Note Signed Patient: Sudeep Diego JR MR#: [id number] : 1950 Acct:[id number] Age/Sex: 72 / M Adm Date: 3 Loc: N Room: [address] [place] [address] Type: ADM IN Attending Dr: Brennan Cerrato MD Copies to: MD Gabino Cruz DO,RES MD Michael Alicea MD~ HPI Data of Consult Consult date: 02/24/23 Requesting Physician: Brennan Cerrato MD Primary Care Provider: Tejas Stevens MD Consult Narrative Reason for consult: Diabetic foot ulcer History of present illness: Mr. Diego is a 72 year old male with history of diabetes mellitus, hypertension who is being seen at the request of the hospitalist service for diabetic foot ulcer. Patient states he was seen in his ferry hand (Dr. Han) office on (02/20/2023) and he recommended the patient will need inpatient admission for his foot ulcer. However, patient states that Dr. Han told him not to go to the ER until Friday as he would not be seen by the correctpeople until Friday anyway. Over the weekend on Friday, patient states he wasresting with his feet on a heating pad and felt a release on his left foot. Upon looking down, patient states that he noticed bone exposure of his left fifth toe with active drainage. Patient has been having persistent pain over that area since then. He presented to the emergency room yesterday with fifth metatarsal bone exposure and a worsening diabetic foot ulcer. Left foot x-ray in the emergency room showed evidence of possible osteomyelitis. Lab work in the emergency room revealed a lactic acid of 2.4, sodium 133, white blood cell count of 13. Blood cultures were taken and patient was admitted to the hospitalwith consult to podiatry, vascular surgery and infectious disease. Upon my evaluation of the patient the medical floor, he is awake and alert resting comfortably in bed in no acute distress. He states he is having persistent pain on the lateral aspect of his left foot, but otherwise feels okay. He has not noticed any recent fevers at home. States he did not have anydirect injury or trauma to the area recently. He admits that his diabetes is poorly controlled, reporting that his most recent A1c was around 10, but previously was too high to be read by the A1c machine. Otherwise, he has no chest pain, shortness of breath, visual changes, abdominal pain, diarrhea, dizziness. CC: Brennan Cerrato MD Review of Systems Constitutional Constitutional: Reports system reviewed and no additional complaints, except as documented Eyes Eyes: Reports system reviewed and no additional complaints, except as documented ENT Ears, Nose, Mouth, and Throat: Reports system reviewed and no additional complaints, except as documented Cardiovascular Cardiovascular: Reports system reviewed and no additional complaints, except as documented Respiratory Respiratory: Reports system reviewed and no additional complaints, except as documented Gastrointestinal Gastrointestinal: Reports system reviewed and no additional complaints, except as documented Musculoskeletal Musculoskeletal: Reports system reviewed and no additional complaints, except asdocumented Integumentary/Breasts Skin/Breast: Reports system reviewed and no additional complaints, except as documented Neurologic Neurologic: Reports system reviewed and no additional complaints, except as documented Hematologic/Lymphatic Hematologic/Lymphatic: Reports system reviewed and no additional complaints, except as documented [facility] Medical History Singh's palsy Cataract Diabetes GERD (gastroesophageal reflux disease) Hypertension Prostate cancer Surgical History H/O hernia repair H/O repair of rotator cuff Right History of appendectomy Hx of cholecystectomy Social History Smoking Status: Light tobacco smoker Tobacco Type: cigars Substance Use Type: None Substance Abuse Comment: former drinker quit several years ago Allergies and Medications Allergies and Active Meds Allergies lisinopril Allergy (Verified 02/23/23 11:42) Swelling of Lip/Tongue/Throat metformin Adverse Reaction (Verified 02/23/23 11:42) Back Pain Active Medications Atorvastatin Calcium (Atorvastatin 40 Mg Tablet) 40 mg PO DAILY KACI Stop: 02/23/24 17:14 Last Admin: 02/23/23 18:34 Dose: 40 mg Baclofen (Baclofen 20 Mg Tablet) 20 mg PO DAILY KACI Stop: 02/23/24 17:14 Last Admin: 02/23/23 21:11 Dose: 20 mg Celecoxib (Celecoxib 200 Mg Capsule) 200 mg PO DAILY KACI Stop: 02/24/24 08:59 Clopidogrel Bisulfate (Clopidogrel Bisulfate 75 Mg Tablet) 75 mg PO DAILY KACI Stop: 02/23/24 17:14 Last Admin: 02/23/23 18:35 Dose: 75 mg Duloxetine HCl (Duloxetine 60 Mg Capsule.Dr) 60 mg PO DAILY KACI Stop: 02/23/24 17:14 Last Admin: 02/23/23 18:42 Dose: 60 mg Enoxaparin Sodium (Enoxaparin 40 Mg/0.4 Ml Syringe) 40 mg SUBCUT DAILY@10 KACI Stop: 02/24/24 09:59 Gabapentin (Gabapentin 800 Mg Tablet) 800 mg PO TID KACI Stop: 02/23/24 21:59 Last Admin: 02/23/23 21:11 Dose: 800 mg Sodium Chloride (0.9% Sodium Chloride 1,000 Ml) 1,000 mls @ 75 mls/hr IV .[id number] KACI Stop: 02/23/24 17:14 Last Admin: 02/23/23 19:00 Dose: 75 mls/hr Piperacillin Sod/Tazobactam Sod (Zosyn) 3.375 gm in 100 mls @ 200 mls/hr IV Q6HSCH Last Admin: 02/24/23 03:06 Dose: 200 mls/hr Vancomycin HCl 1.25 gm/ (Dextrose) 275 mls @ 183.333 mls/hr IV Q12H KACI Stop: 02/24/24 00:59 Last Admin: 02/24/23 00:55 Dose: 183.33 mls/hr Insulin Glargine (Insulin Glargine 300 Units/3 Ml Insuln.Pen) 40 units SUBCUT 2XD KACI Stop: 02/23/24 20:29 Metoprolol Succinate (Metoprolol Succinate 50 Mg Tab.Er.24h) 50 mg PO DAILY KACI Stop: 02/23/24 17:14 Last Admin: 02/23/23 18:35 Dose: 50 mg Sodium Chloride (Sodium Chloride 0.9 % 10 Ml Syringe) 0 ml IV-PUSH PRN PRN PRN Reason: Flush Stop: 02/23/24 11:41 Tramadol HCl (Tramadol 50 Mg Tablet) 50 mg PO Q6H PRN PRN Reason: Pain Stop: 08/22/23 17:06 Last Admin: 02/23/23 18:35 Dose: 50 mg Vancomycin HCl (Vancomycin - Pharmacy Dosing 1 Each Miscell) 1 each IV ONCE PRN; Protocol PRN Reason: ZZ.Pharmacy Consult Exam Physical Exam Vital Signs: Temp Pulse Resp BP Pulse Ox O2 Del Method 98.1 F 65 16 150/69 H 96 Room Air 02/24/23 07:30 02/24/23 07:30 02/24/23 07:30 02/24/23 07:30 02/24/23 07:30 02/24/23 07:30 Const General: cooperative, comfortable and no acute distress Orientation: alert, awake and oriented x3 HEENT Head: normal to inspection Ears: hearing grossly normal bilaterally Nose: external nose normal Eyes General: appearance normal, both eyes and all related structures Neck Neck: normal visual inspection, trachea midline and supple Resp Effort & Inspection: normal respiratory effort and able to speak in complete sentences Auscultation: clear to auscultation bilaterally, no rales, no rhonchi and no wheezes Cardio Rate: regular rate Rhythm: regular rhythm GI Inspection: non-distended Palpation: soft, no hepatosplenomegaly, no guarding and nontender Neuro General: patient alert, patient awake and patient oriented x3 Cognition: normal cognition Speech: speech normal Extrem General: no clubbing, cyanosis or edema Other: Upon pulling down the dressing covering the left foot, there is an area of bone exposure with active drainage to the lateral aspect of the foot near the left fifth metatarsal. Odor noted with pulling back of the dressing. Some necrotic material appreciated. The area is tender to touch. The rest of the foot has areas of callus formation but no obvious exposed bone Psych Appearance: grossly normal Mental Status: mental status grossly normal Mood: congruent mood Affect: normal affect Results Labs 02/24/23 07:37 02/23/23 12:05 Labs: 02/23/23 12:05: Corrected WBC 13.0 H, Uncorrected WBC Count 13.0 H 02/23/23 12:05: BUN 13, Creatinine 0.74 02/24/23 07:37: Corrected WBC 11.9 H Microbiology Results Microbiology Narrative: 02/23/23 12:07 Blood Culture - Pending Blood - Left Forearm 02/23/23 12:05 Blood Culture - Pending Blood - Left Hand Imaging and Cardiology Results Comments: Left foot x-ray performed on 02/23/2023: THERE APPEARS BE A SOFT TISSUE DEFECT INVOLVING THE LATERAL ASPECT OF THE LEFT FOOT WITH POSSIBLE BONE EXPOSURE OF THEFIFTH METATARSAL. THERE APPEARS TO BE SOME DEGREE OF BONY DESTRUCTION AND SUBLUXATION INVOLVING THE FIFTH MTP JOINT SUGGESTIVE OF UNDERLYING OSTEOMYELITIS. A&P - Infectious Disease (1) Diabetic foot infection: Status: Acute (2) Osteomyelitis: Status: Acute Plan 72-year-old male with history of poorly controlled diabetes mellitus who presented to the emergency room with diabetic foot infection and exposed bone ofthe fifth metatarsal. He presented with a leukocytosis of 13 and x-ray showed findings suggestive of underlying osteomyelitis. He was started on IV vancomycin and Zosyn in the emergency room. Infectious disease consulted for management of the diabetic foot ulcer. Patient follows with both podiatry and vascular surgery in the outpatient setting. Per vascular surgery note, he recently underwent a left lower extremity arteriogram with balloon angioplasty of the left anterior tibial artery and tibial peroneal trunk in December. He had postprocedural ABIs a few weeks ago which were normal. Patient follows with with serial debridements in his office. Per infectious disease perspective, given his concerning x-ray and leukocytosis feel it is appropriate to continue with IV vancomycin and Zosyn. Defer surgical debridement to podiatry/vascular surgery team. We will continue to follow the cultures and narrow spectrum as appropriate. MRI of the left foot is pending. I performed a history and physical examination of the patient and discussed his/her management with the resident/student. I reviewed the resident?s/student's note and agree with the documented findings and plan of care. Documented By: Gabino Hyman DO,RES 02/24/23 084 5 Signed By: <Electronically signed by DO KELLE Hyman> 02/24/23 0955 <Electronically signed by MD Michael Ramírez> 02/24/23 1047 [facility] Work Phone: 1(166) 103-288609-11-2023 Evaluation note* Encounter Date Diagnosis Assessment Notes Treatment Notes Treatment Clinical Notes Jan, PAD (peripheral artery disease) (ICD-10 - I73.9) Jan, Ulcer of left foot, unspecified ulcer stage (ICD-10 - L97.529) Jan, Other Patient did get good latter day of flow to the left foot with endovascular intervention. We did review his noninvasive arterial studies in the office today which show good waveform on the left. He has easily palpable pedal pulses. He continues to treat with Dr. Rohan Han for care of the left foot wounds and recently had surgical debridement of a wound. He is set to see him again on . This wound could use additional debridement. Discussed importance of ongoing wound care with daily dressing changes. Discussed importance of not only good blood flow but good diabetic management, offloading, dressing changes, good nutritional support in his wound care. Patient states understanding of all discussion and agrees with this plan. We will see him again in a few weeks for wound check [facility] Other 08-18-2023 Evaluation note* Encounter Date Diagnosis Assessment Notes Treatment Notes Treatment Clinical Notes Dec, PAD (peripheral artery disease) (ICD-10 - I73.9) Dec, Ulcer of left foot, unspecified ulcer stage (ICD-10 - L97.529) Dec, Other This patient renae s presence of multiple small ulcerations on the left foot that have been present for about 3 weeks now. His foot is quite painful. He also has some ischemic rubor noted from the midfoot distally. ABIs obtained in outside facility indicate severe hemodynamic impairment of the left lower extremity at rest. Dr. Bautista in room to evaluate further. Discussed recommendation for angiogram to evaluate his blood supply for healing. Patient will most likely require endovascular intervention to aid in wound healing.Procedure, risk, benefits were discussed with him at length and all questions were addressed. Consent was obtained. We will get him on the schedule in the near future. [facility] Other 03-01-2023 Evaluation note* Encounter Date Diagnosis Assessment Notes Treatment Notes Treatment Clinical Notes Jul, Type 2 diabetes mellitus with hyperglycemia (ICD-10 - E11.65) Managing type 2 diabetes material was published 1. Uncontrolled, Type 2 diabetes with A1C of 9.0% GMI 7.6% today. 2. Blood glucose levels improved. According to [facility] cgm download 07/11/2022-07/24/2022: Avg glucose 180. >250-11%, >180-33%, 70-180-56%, <70-0%, <54-0%. CV 27.8%. Reviewed download with pt, glucose improved, remain above target. Glucose above target from missed meal or higher glycemic carb load, pt admits to eating cereal kix at around 3 am and no insulin dosing. Recommend lower glycemic load and protein to reduce higher glucose middle of night. Glucose above target fasting am/ac supper, recommend pt increasing basaglar to 41 units bid. Reviewed with pt how to tirate basal/bolus insulin according to fasting am/ac supper and meal to meal glucose pattern. Pt verbalizes understanding. 3. Patient is alert, oriented and receptive to making changes or counseling. Notes: Seen for an assessment of current glucose pattern, changes in treatment plan, with this time spent in counseling and coordination of care related to diabetes, risks, and benefits of treatment, medications, and side effects. TOPICS REVIEWED: 1. Time was spent reviewing: a. Basic concepts of diabetes, progressive beta cell , concepts of basal/bolus/correct rajat insulin requirements. Basal: The goal is fasting blood glucose of 90-130mg. IF fasting blood glucose starts to run under 100mg 3x's/ week, decrease dose by 10%. Bolus: The goal is to hold the blood glucose level steady meal to meal. If pt. is going to have increased physical activity after a meal, decrease the schedule meal dose prior to the activity by 30-50%. If pt. skips a meal do not take this dose. Correction: The goal is to correct an elevated glucose back into the 100-150mg range b. Nutrition: Concepts of healthy diet, encouraged to decrease saturated fat in diet and increase non-starchy vegetables and fruits in diet. BMI: Pt. needs to select one small change to decrease caloric intake or increase physical activity to help decrease weight. c. Correct treatment of hypoglycemia, carry a glucose source at all times on your person, in vehicles, and at bedside. Can use glucose tablets/4, four ounces of pop or juice equal to 15 G of carbohydrate. Blood glucose should be 100 mg/dl or higher when driving. d. ADA glucose goals for age and medical complexity reviewed e. Patient questions addressed 2. Activity/exercise: Encouraged to start any form of physical activity. Start low level and increase slowly to a minimal goal of 150 minutes/week. Limit activity to what is allowed by other issues such as cardiac, pulmonary or orthopedic restrictions. 3. Standards of care: Reminded to have an annual dilated eye exam, A1C every 3 months, urine testing for microalbumin once/year, check feet daily and report any cuts or sores that do not appear to be healing. 4. Meter: Plan to check blood glucose: Please check blood glucose levels 4 times/day. Back to back meals reveal effectiveness of bolus dosing. The Blood glucose data is used to determine insulin doses, and confirm symptoms for hypoglycemia and hyperglcyemia. 5. [facility] Contact office if any issues or concerns with patterns of hypoglycemia, hyperglycemia, or diabetes medication issues. 6. Prescriptions: Pap from [facility] for basaglar/humalog/tr ulicity. 7. Prescriptions will not be filled unless you are compliant with follow up appointments or have a follow up appointment scheduled as ordered by your provider. Refills should be requested at the time of your visit. 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 768 on statin Jul, Cut of foot (ICD-10 - S91.319A) referral to podiatry Keep covered with a clean and dry bandage while working; may remove at night. Report to ED immediately if signs of infection occur: redness, increasing pain, swelling, fever, red streaks progressing up an extremity. Jul, BMI 34.0-34.9,adult (ICD-10 - Z68.34) 7 pound weight loss from last visit, continue with weight loss efforts [facility] Other 09-14-2022 Evaluation note* Encounter Date Diagnosis Assessment Notes Treatment Notes Treatment Clinical Notes Jan, Type 2 diabetes mellitus with hyperglycemia (ICD-10 - E11.65) Managing type 2 diabetes material was published 1. Uncontrolled, Type 2 diabetes with A1C of 8.5% 2. Blood glucose levels improved from last vist a1c 11% 08/23/21. According to [facility] cgm download 01/24/2022-02/06/2022: Avg glucose 200. >250-15%, >180-50%, 70-180-35%, <70-0%, <54-0%. CV 22.6%. Reviewed download with pt, glucose improved, remain above target. Discussed with pt increasing trulicity dose from 1.5 to 3mg once weekly. Pt agreeable. Will send rx request to [facility]. Reviewed with pt how to tirate basal/bolus insulin according to fasting am/ac supper and meal to meal glucose pattern. Pt verbalizes understanding. 3. Patient is alert, oriented and receptive to making changes or counseling. Notes: Seen for an assessment of current glucose pattern, changes in treatment plan, with this time spent in counseling and coordination of care related to diabetes, risks, and benefits of treatment, medications, and side effects. TOPICS REVIEWED: 1. Time was spent reviewing: a. Basic concepts of diabetes, progressive beta cell , concepts of basal/bolus/correct rajat insulin requirements. Basal: The goal is fasting blood glucose of 90-130mg. IF fasting blood glucose starts to run under 100mg 3x's/ week, decrease dose by 10%. Bolus: The goal is to hold the blood glucose level steady meal to meal. If pt. is going to have increased physical activity after a meal, decrease the schedule meal dose prior to the activity by 30-50%. If pt. skips a meal do not take this dose. Correction: The goal is to correct an elevated glucose back into the 100-150mg range b. Nutrition: Concepts of healthy diet, encouraged to decrease saturated fat in diet and increase non-starchy vegetables and fruits in diet. BMI: Pt. needs to select one small change to decrease caloric intake or increase physical activity to help decrease weight. c. Correct treatment of hypoglycemia, carry a glucose source at all times on your person, in vehicles, and at bedside. Can use glucose tablets/4, four ounces of pop or juice equal to 15 G of carbohydrate. Blood glucose should be 100 mg/dl or higher when driving. d. ADA glucose goals for age and medical complexity reviewed e. Patient questions addressed 2. Activity/exercise: Encouraged to start any form of physical activity. Start low level and increase slowly to a minimal goal of 150 minutes/week. Limit activity to what is allowed by other issues such as cardiac, pulmonary or orthopedic restrictions. 3. Standards of care: Reminded to have an annual dilated eye exam, A1C every 3 months, urine testing for microalbumin once/year, check feet daily and report any cuts or sores that do not appear to be healing. 4. Meter: Plan to check blood glucose: Please check blood glucose levels 4 times/day. Back to back meals reveal effectiveness of bolus dosing. The Blood glucose data is used to determine insulin doses, and confirm symptoms for hypoglycemia and hyperglcyemia. 5. [facility]. Contact office if any issues or concerns with patterns of hypoglycemia, hyperglycemia, or diabetes medication issues. 6. Prescriptions: Pap from [facility] for basaglar/humalog/tr ulicity- increase trulicity to 3mg once weekly. Jan, Dietary counseling and surveillance (ICD-10 - Z71.3) Heart healthy diet material was published Jan, HTN (hypertension) (ICD-10 - I10) Managing high blood pressure material was published uncontrolled- f/u with pcp for further recommendation Jan, longterm current use of insulin (ICD-10 - Z79.4) Jan, Hypoglycemia associated with type 2 diabetes mellitus (ICD-10 - E11.649) Diabetes and foot care material was published see above Jan, Mixed hyperlipidemia (ICD-10 - E78.2) Cholesterol-low ering diet material was published 07/2020 ldl 118, trig. 768 on statin Jan, BMI 35.0-35.9,adult (ICD-10 - Z68.35) Setting weight-loss goals material was published 5 pound weight loss from last visit, continue with weight loss efforts [facility] Other 07-12-2022 Evaluation note* Encounter Date Diagnosis Assessment Notes Treatment Notes Treatment Clinical Notes Nov, Type 2 diabetes mellitus with hyperglycemia (ICD-10 - E11.65) [facility] Other 03-31-2022 Evaluation note* Encounter Date Diagnosis Assessment Notes Treatment Notes Treatment Clinical Notes Jul, Type 2 diabetes mellitus with hyperglycemia (ICD-10 - E11.65) Managing type 2 diabetes material was published 1. Uncontrolled, Type 2 diabetes with A1C of 11% 2. Blood glucose levels according to [facility]gm download 08/10/2021-08/23/2021 : Avg glucose 231. >250-31%, >180-54%, 70-180-15%, <70-0%, <54-0%. CV 22.8%. Reviewed download with pt, glucose above target. Pt reports he is serious about tryig to get his blood sugars under control. He is planning on changing his diet and being more consistent with taking his meal/corrective and basal insulin. He does admit if he falls asleep he may miss his bedtime dose of basaglar but happens infrequently. Discussed with pt starting glp1. No hx of pancreatitis/mtc/me n/retinopathy. Reviewed common s/e of medication. Agreeable to starting trulicity if can get through pap. Reviewed target fasting am/ac meals 100/150; 2 hours after meal <180, bedtime 180/200. Higher targets d/t pt fear of hypoglcyemia. Pt administered first dose of trulicity 0.75mg to abdomen. Reviewed with pt if started on steroids he will need to use humalog q4 hours with corrective scale to keep blood sugars controlled. He verbalizes understanding. 3. Patient is alert, oriented and receptive to making changes or counseling. Notes: Seen for an assessment of current glucose pattern, changes in treatment plan, with this time spent in counseling and coordination of care related to diabetes, risks, and benefits of treatment, medications, and side effects. TOPICS REVIEWED: 1. Time was spent reviewing: a. Basic concepts of diabetes, progressive beta cell , concepts of basal/bolus/correct rajat insulin requirements. Basal: The goal is fasting blood glucose of 90-130mg. IF fasting blood glucose starts to run under 100mg 3x's/ week, decrease dose by 10%. Bolus: The goal is to hold the blood glucose level steady meal to meal. If pt. is going to have increased physical activity after a meal, decrease the schedule meal dose prior to the activity by 30-50%. If pt. skips a meal do not take this dose. Correction: The goal is to correct an elevated glucose back into the 100-150mg range b. Nutrition: Concepts of healthy diet, encouraged to decrease saturated fat in diet and increase non-starchy vegetables and fruits in diet. BMI: Pt. needs to select one small change to decrease caloric intake or increase physical activity to help decrease weight. c. Correct treatment of hypoglycemia, carry a glucose source at all times on your person, in vehicles, and at bedside. Can use glucose tablets/4, four ounces of pop or juice equal to 15 G of carbohydrate. Blood glucose should be 100 mg/dl or higher when driving. d. ADA glucose goals for age and medical complexity reviewed e. Patient questions addressed 2. Activity/exercise: Encouraged to start any form of physical activity. Start low level and increase slowly to a minimal goal of 150 minutes/week. Limit activity to what is allowed by other issues such as cardiac, pulmonary or orthopedic restrictions. 3. Standards of care: Reminded to have an annual dilated eye exam, A1C every 3 months, urine testing for microalbumin once/year, check feet daily and report any cuts or sores that do not appear to be healing. 4. Meter: Plan to check blood glucose: Please check blood glucose levels 4 times/day. Back to back meals reveal effectiveness of bolus dosing. The Blood glucose data is used to determine insulin doses, and confirm symptoms for hypoglycemia and hyperglcyemia. 5. [facility]. Contact office if any issues or concerns with patterns of hypoglycemia, hyperglycemia, or diabetes medication issues. 6. Prescriptions: Pt getting pap from [facility] for basaglar/humalog. Sample trulicity x2 pens 0.75mg and 1.5mg given- if tolerates will send pap for 1.5mg dose. 7. Referral to community educator 1 month Jul, Dietary counseling and surveillance (ICD-10 - Z71.3) Heart healthy diet material was published Jul, HTN (hypertension) (ICD-10 - I10) Managing high blood pressure material was published Jul, longterm current use of insulin (ICD-10 - Z79.4) Jul, Hypoglycemia associated with type 2 diabetes mellitus (ICD-10 - E11.649) Diabetes and foot care material was published see above Jul, Mixed hyperlipidemia (ICD-10 - E78.2) Cholesterol-low ering diet material was published 07/2020 ldl 118, trig. 768 on statin Jul, BMI 36.0-36.9,adult (ICD-10 - Z68.36) Setting weight-loss goals material was published see above [facility] Other 11-09-2021 Evaluation note* Encounter Date Diagnosis Assessment Notes Treatment Notes Treatment Clinical Notes Mar, Type 2 diabetes mellitus with hyperglycemia (ICD-10 - E11.65) Managing type 2 diabetes material was published 1. Uncontrolled, Type 2 diabetes with A1C of 11.4% 02/22/21 2. Blood glucose levels according to [facility] download 03/21/2021- 1: Avg glucose 217. >250-22%, >180-57%, 70-180-21%, <70-0%, <54-0%. CV 22.4%. Reviewed download with pt, GMI 8.5% improved from last visit. Pt admits to missed meal and at times hs basal dosing which results in hyperglycemia. Encouraged to be consistent with basaglar/humalog dosing for improved glycemia. Reviewed target fasting am/ac meals 100/150; 2 hours after meal <180, bedtime 180/2000. Higher targets d/t pt fear of hypoglcyemia. 3. Patient is alert, oriented and receptive to making changes or counseling. Notes: Seen for an assessment of current glucose pattern, changes in treatment plan, with this time spent in counseling and coordination of care related to diabetes, risks, and benefits of treatment, medications, and side effects. TOPICS REVIEWED: 1. Time was spent reviewing: a. Basic concepts of diabetes, progressive beta cell , concepts of basal/bolus/correct rajat insulin requirements. Basal: The goal is fasting blood glucose of 90-130mg. IF fasting blood glucose starts to run under 100mg 3x's/ week, decrease dose by 10%. Bolus: The goal is to hold the blood glucose level steady meal to meal. If pt. is going to have increased physical activity after a meal, decrease the schedule meal dose prior to the activity by 30-50%. If pt. skips a meal do not take this dose. Correction: The goal is to correct an elevated glucose back into the 100-150mg range b. Nutrition: Concepts of healthy diet, encouraged to decrease saturated fat in diet and increase non-starchy vegetables and fruits in diet. BMI: Pt. needs to select one small change to decrease caloric intake or increase physical activity to help decrease weight. c. Correct treatment of hypoglycemia, carry a glucose source at all times on your person, in vehicles, and at bedside. Can use glucose tablets/4, four ounces of pop or juice equal to 15 G of carbohydrate. Blood glucose should be 100 mg/dl or higher when driving. d. ADA glucose goals for age and medical complexity reviewed e. Patient questions addressed 2. Activity/exercise: Encouraged to start any form of physical activity. Start low level and increase slowly to a minimal goal of 150 minutes/week. Limit activity to what is allowed by other issues such as cardiac, pulmonary or orthopedic restrictions. 3. Standards of care: Reminded to have an annual dilated eye exam, A1C every 3 months, urine testing for microalbumin once/year, check feet daily and report any cuts or sores that do not appear to be healing. 4. Meter: Plan to check blood glucose: Please check blood glucose levels 4 times/day. Back to back meals reveal effectiveness of bolus dosing. The Blood glucose data is used to determine insulin doses, and confirm symptoms for hypoglycemia and hyperglcyemia. 5. [facility] 2 [facility]. Contact office if any issues or concerns with patterns of hypoglycemia, hyperglycemia, or diabetes medication issues. 6. Prescriptions: Pt getting pap from [facility] for basaglar/humalog. Mar, Vitamin D deficiency (ICD-10 - E55.9) Vitamin D: let the sun shine material was published 07/2020 Vit. D 26.1 recommend otc vit d 1000 units once daily. 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 768 on statin Mar, BMI 31.0-31.9,adult (ICD-10 - Z68.31) Setting weight-loss goals material was published see above [facility] Other 09-30-2021 Evaluation note* Encounter Date Diagnosis Assessment Notes Treatment Notes Treatment Clinical Notes Jan, Type 2 diabetes mellitus with hyperglycemia (ICD-10 - E11.65) Managing type 2 diabetes material was published 1. Uncontrolled, Type 2 diabetes with A1C of 11.4% 2. Blood glucose levels above target . Pt did not bring [facility] reader with him today. Has been rationing insulin d/t cost. He was given rx assist application through [facility] will send order for basaglar to take place of lantus and humalog. He did not like taking the ozempic. Reviewed target fasting am/ac meals 100/150; 2 hours after meal <180, bedtime 120/180. 3. Patient is alert, oriented and receptive to making changes or counseling. Notes: Seen for an assessment of current glucose pattern, changes in treatment plan, with this time spent in counseling and coordination of care related to diabetes, risks, and benefits of treatment, medications, and side effects. TOPICS REVIEWED: 1. Time was spent reviewing: a. Basic concepts of diabetes, progressive beta cell , concepts of basal/bolus/correct rajat insulin requirements. Basal: The goal is fasting blood glucose of 90-130mg. IF fasting blood glucose starts to run under 100mg 3x's/ week, decrease dose by 10%. Bolus: The goal is to hold the blood glucose level steady meal to meal. If pt. is going to have increased physical activity after a meal, decrease the schedule meal dose prior to the activity by 30-50%. If pt. skips a meal do not take this dose. Correction: The goal is to correct an elevated glucose back into the 100-150mg range b. Nutrition: Concepts of healthy diet, encouraged to decrease saturated fat in diet and increase non-starchy vegetables and fruits in diet. BMI: Pt. needs to select one small change to decrease caloric intake or increase physical activity to help decrease weight. c. Correct treatment of hypoglycemia, carry a glucose source at all times on your person, in vehicles, and at bedside. Can use glucose tablets/4, four ounces of pop or juice equal to 15 G of carbohydrate. Blood glucose should be 100 mg/dl or higher when driving. d. ADA glucose goals for age and medical complexity reviewed e. Patient questions addressed 2. Activity/exercise: Encouraged to start any form of physical activity. Start low level and increase slowly to a minimal goal of 150 minutes/week. Limit activity to what is allowed by other issues such as cardiac, pulmonary or orthopedic restrictions. 3. Standards of care: Reminded to have an annual dilated eye exam, A1C every 3 months, urine testing for microalbumin once/year, check feet daily and report any cuts or sores that do not appear to be healing. 4. Meter: Plan to check blood glucose: Please check blood glucose levels 4 times/day. Back to back meals reveal effectiveness of bolus dosing. The Blood glucose data is used to determine insulin doses, and confirm symptoms for hypoglycemia and hyperglcyemia. 5. [facility] 1 [facility]. Contact office if any issues or concerns with patterns of hypoglycemia, hyperglycemia, or diabetes medication issues. 6. Prescriptions: [facility] application given- see above. Jan, Vitamin D deficiency (ICD-10 - E55.9) Vitamin D: let the sun shine material was published 07/2020 Vit. D 26.1 recommend otc vit d 1000 units once daily. Jan, Dietary counseling and surveillance (ICD-10 - Z71.3) Heart healthy diet material was published Jan, HTN (hypertension) (ICD-10 - I10) Managing high blood pressure material was published Jan, longterm current use of insulin (ICD-10 - Z79.4) Jan, Hypoglycemia associated with type 2 diabetes mellitus (ICD-10 - E11.649) Diabetes and foot care material was published see above Jan, Mixed hyperlipidemia (ICD-10 - E78.2) Cholesterol-low ering diet material was published 07/2020 ldl 118, trig. 768 on statin- did not start lovaza that was ordered at last visit Jan, BMI 30.0-30.9,adult (ICD-10 - Z68.30) Setting weight-loss goals material was published [facility] Other 09-01-2013 History general Narrative - Reported* Type Description Date Medical History PROSTATE CANCER Medical History DM2 Medical History GERD Medical History HTN Medical History NEUROPATHY Surgical History prostate surgery for cancer 01/25 Surgical History cholecystectomy 2010 Surgical History hernia repair 2009 Surgical History circumcision 11/2019 Hospitalization History SEE ABOVE SURGERY [facility] Other Consult note Author Giovanni Ni [facility] July 11, 2023 9:05am Note Date/Time July 11, 2023 9:05am [facility] [address] [place] [address] Vascular Surgery Consult Note Signed Patient: Sudeep Diego JR MR#: [id number] : 1950 Acct:[id number] Age/Sex: 72 / M Adm Date: 4 Loc: 3T Room: [address] [place], [place] [id number] Type: ADM IN Attending Dr: Brennan Cerrato MD Copies to: MD Tejas Cruz MD Matthew T Langenberg, MD~ HPI Consult HPI History of present illness: Mr. Diego is a 72 year old male who presents to the hospital with a diabeticfoot infection on the left foot. This patient is known to the vascular surgery service. My partner Dr. Bautista performed tibial angioplasty last fall. The patient states he has been compliant with his antiplatelet and statin medications. The patient states that he is recently quit smoking. He did follow-up with Dr. Bautista in the office after the procedure and had a normal vascular study to the left foot. cc:: CC: Brennan Cerrato MD Data of Consult Consult date: 07/11/2023 Requesting Physician: Brennan Cerrato MD [facility] Medical History Diabetes mellitus due to underlying condition with diabetic neuropathy, unspecified Prostate cancer PAD (peripheral artery disease) PVD (peripheral vascular disease) Osteomyelitis of foot, left, acute Neuropathy Amputated toe of left foot Sciatica, left side Cataract Singh's palsy Hypertension GERD (gastroesophageal reflux disease) Diabetes Prostate cancer Surgical History H/O angioplasty left anterior tibial artery H/O repair of rotator cuff Right History of appendectomy H/O hernia repair Hx of cholecystectomy Family History Father Hypertension Father Hypertension Mother Diabetes History of stroke Legacy [facility] Problem: Diagnosed with Stroke Stroke Brother Cancer muscle Social History Smoking Status: Former smoker Tobacco Type: cigars Substance Use Type: Marijuana Substance Abuse Comment: former drinker quit several years ago Allergies & Active Medications Medications and Allergies Allergies cefepime Allergy (Unknown, Verified 07/10/23 18:46) Hives lisinopril Allergy (Unknown, Verified 07/10/23 18:46) Swelling of Lip/Tongue/Throat, SWELLING metformin Allergy (Unknown, Verified 07/10/23 18:46) Back Pain, KIDNEY PAIN Exam Physical Exam Vital Signs: Temp Pulse Resp BP Pulse Ox O2 Del Method 97.8 F 85 16 142/78 H 98 Room Air 07/11/23 04:00 07/11/23 04:00 07/11/23 04:00 07/11/23 04:00 07/11/23 04:00 07/11/23 06:00 Const Other: The patient was awake alert and oriented no distress he is pleasant polite and cooperative. The RN was in the room with me during exam. Left foot is well- perfused with excellent palpable pulses. Results Labs 07/11/23 06:03 07/11/23 06:03 Labs: Laboratory Results - last 24 hr 07/10/23 07/10/23 07/10/23 19:03 19:09 21:45 Corrected WBC 32.8 H Uncorrected WBC Count 32.8 H RBC 3.98 Hgb 11.9 L Hct 35.3 L MCV 88.6 MCH 29.8 MCHC 33.6 RDW 13.7 Plt Count 502 H MPV 7.7 Neut % (Auto) 84.7 Lymph % (Auto) 6.5 [place] % (Auto) 8.4 Eos % (Auto) 0.3 Baso % (Auto) 0.1 Nucleat RBC Rel Count 0.0 Neut # (Auto) 27.7 H Lymph # (Auto) 2.1 [place] # (Auto) 2.7 H Eos # (Auto) 0.1 Baso # (Auto) 0.0 Band Neutrophils % Lymphocytes % Monocytes % Eosinophils % Metamyelocytes % Segmented Neutrophils Monocyte Dist Width 22.38 H Platelet Estimate Increased Large Platelets Slight Plt Morphology Comment N/A RBC Morphology Normal Polychromasia Anisocytosis Microcytosis Acanthocytes (Spur) ESR 62 H PT INR APTT PHA Creatinine Clear 59.59 Sodium 136 Potassium 3.3 L Chloride 98 Carbon Dioxide 25.5 Anion Gap 15.8 H BUN 23 Creatinine 1.23 Est GFR (CKD-EPI) > 60.0 Glucose 57 L POC Glucose 188 POC Glucose Comment Glu2: cleaned meter Lactic Acid 3.3 H* Calcium 9.1 Magnesium Cancelled 1.9 C-Reactive Prot, Quant Cancelled 28.5 H 07/10/23 07/11/23 22:22 06:03 Corrected WBC 30.0 H Uncorrected WBC Count 30.0 H RBC 3.47 L Hgb 10.3 L Hct 30.9 L MCV 88.9 MCH 29.6 MCHC 33.3 RDW 13.3 Plt Count 408 MPV 7.7 Neut % (Auto) N/A Lymph % (Auto) N/A [place] % (Auto) N/A Eos % (Auto) N/A Baso % (Auto) N/A Nucleat RBC Rel Count N/A Neut # (Auto) N/A Lymph # (Auto) N/A [place] # (Auto) N/A Eos # (Auto) N/A Baso # (Auto) N/A Band Neutrophils % 3 Lymphocytes % 6 L Monocytes % 3 Eosinophils % 1 Metamyelocytes % 2 H Segmented Neutrophils 86 H Monocyte Dist Width Platelet Estimate Normal Large Platelets Plt Morphology Comment Normal RBC Morphology N/A Polychromasia Slight Anisocytosis Slight Microcytosis Moderate Acanthocytes (Spur) Slight ESR PT 12.7 INR 1.1 APTT 28.7 PHA Creatinine Clear 69.79 Sodium 132 L Potassium 3.6 Chloride 102 Carbon Dioxide Anion Gap BUN 25 Creatinine 1.07 Est GFR (CKD-EPI) > 60.0 Glucose 206 H D POC Glucose POC Glucose Comment Lactic Acid 1.2 Calcium 7.4 L D Magnesium 1.7 L C-Reactive Prot, Quant PT 12.7 Seconds (9.0-12.9) 07/11/23 06:03 APTT 28.7 Seconds (25.1-36.5) 07/11/23 06:03 A&P - Vascular (1) Gangrene of left foot: Plan: I repeated the patient's vascular lab studies. His blood flow is normal to the left foot. This patient does not need any vascular surgery intervention at thistime. He should continue risk factor modification and high intensity statin with antiplatelet agent. We will follow-up in the office as an outpatient. Vascular surgery will sign off. Documented By: Giovanni Ni MD 07/11/23902 Signed By: <Electronically signed by Giovanni Ni MD> 07/11/23 09 [facility] Work Phone: Consult note Author Giovanni Ni [facility] July 11, 2023 9:06am Note Date/Time July 11, 2023 9:07am [facility] [address] [place] [address] Vascular Surgery Consult Note Signed Patient: Sudeep Diego JR MR#: [id number] : 1950 Acct:[id number] Age/Sex: 72 / M Adm Date: 4 Loc: 3T Room: [address] [place] [address] Type: ADM IN Attending Dr: Brennan Cerrato MD Copies to: MD Tejas Cruz MD Matthew T Langenberg, MD~ HPI Consult HPI History of present illness: Mr. Diego is a 72 year old male cc:: CC: Brennan Cerrato MD Data of Consult Consult date: 07/11/2023 Requesting Physician: Brennna Cerrato MD [facility] Medical History Diabetes mellitus due to underlying condition with diabetic neuropathy, unspecified Prostate cancer PAD (peripheral artery disease) PVD (peripheral vascular disease) Osteomyelitis of foot, left, acute Neuropathy Amputated toe of left foot Sciatica, left side Cataract Singh's palsy Hypertension GERD (gastroesophageal reflux disease) Diabetes Prostate cancer Surgical History H/O angioplasty left anterior tibial artery H/O repair of rotator cuff Right History of appendectomy H/O hernia repair Hx of cholecystectomy Family History Father Hypertension Father Hypertension Mother Diabetes History of stroke Legacy [facility] Problem: Diagnosed with Stroke Stroke Brother Cancer muscle Social History Smoking Status: Former smoker Tobacco Type: cigars Substance Use Type: Marijuana Substance Abuse Comment: former drinker quit several years ago Allergies & Active Medications Medications and Allergies Allergies cefepime Allergy (Unknown, Verified 07/10/23 18:46) Hives lisinopril Allergy (Unknown, Verified 07/10/23 18:46) Swelling of Lip/Tongue/Throat, SWELLING metformin Allergy (Unknown, Verified 07/10/23 18:46) Back Pain, KIDNEY PAIN Exam Physical Exam Vital Signs: Temp Pulse Resp BP Pulse Ox O2 Del Method 97.8 F 85 16 142/78 H 98 Room Air 07/11/23 04:00 07/11/23 04:00 07/11/23 04:00 07/11/23 04:00 07/11/23 04:00 07/11/23 06:00 Const Other: The patient was awake alert and oriented no distress he is pleasant polite and cooperative. The RN was in the room with me during exam. Left foot is well- perfused with excellent palpable pulses. Results Labs 07/11/23 06:03 07/11/23 06:03 Labs: Laboratory Results - last 24 hr 07/10/23 07/10/23 07/10/23 19:03 19:09 21:45 Corrected WBC 32.8 H Uncorrected WBC Count 32.8 H RBC 3.98 Hgb 11.9 L Hct 35.3 L MCV 88.6 MCH 29.8 MCHC 33.6 RDW 13.7 Plt Count 502 H MPV 7.7 Neut % (Auto) 84.7 Lymph % (Auto) 6.5 [place] % (Auto) 8.4 Eos % (Auto) 0.3 Baso % (Auto) 0.1 Nucleat RBC Rel Count 0.0 Neut # (Auto) 27.7 H Lymph # (Auto) 2.1 [place] # (Auto) 2.7 H Eos # (Auto) 0.1 Baso # (Auto) 0.0 Band Neutrophils % Lymphocytes % Monocytes % Eosinophils % Metamyelocytes % Segmented Neutrophils Monocyte Dist Width 22.38 H Platelet Estimate Increased Large Platelets Slight Plt Morphology Comment N/A RBC Morphology Normal Polychromasia Anisocytosis Microcytosis Acanthocytes (Spur) ESR 62 H PT INR APTT PHA Creatinine Clear 59.59 Sodium 136 Potassium 3.3 L Chloride 98 Carbon Dioxide 25.5 Anion Gap 15.8 H BUN 23 Creatinine 1.23 Est GFR (CKD-EPI) > 60.0 Glucose 57 L POC Glucose 188 POC Glucose Comment Glu2: cleaned meter Lactic Acid 3.3 H* Calcium 9.1 Magnesium Cancelled 1.9 C-Reactive Prot, Quant Cancelled 28.5 H 07/10/23 07/11/23 22:22 06:03 Corrected WBC 30.0 H Uncorrected WBC Count 30.0 H RBC 3.47 L Hgb 10.3 L Hct 30.9 L MCV 88.9 MCH 29.6 MCHC 33.3 RDW 13.3 Plt Count 408 MPV 7.7 Neut % (Auto) N/A Lymph % (Auto) N/A [place] % (Auto) N/A Eos % (Auto) N/A Baso % (Auto) N/A Nucleat RBC Rel Count N/A Neut # (Auto) N/A Lymph # (Auto) N/A [place] # (Auto) N/A Eos # (Auto) N/A Baso # (Auto) N/A Band Neutrophils % 3 Lymphocytes % 6 L Monocytes % 3 Eosinophils % 1 Metamyelocytes % 2 H Segmented Neutrophils 86 H Monocyte Dist Width Platelet Estimate Normal Large Platelets Plt Morphology Comment Normal RBC Morphology N/A Polychromasia Slight Anisocytosis Slight Microcytosis Moderate Acanthocytes (Spur) Slight ESR PT 12.7 INR 1.1 APTT 28.7 PHA Creatinine Clear 69.79 Sodium 132 L Potassium 3.6 Chloride 102 Carbon Dioxide Anion Gap BUN 25 Creatinine 1.07 Est GFR (CKD-EPI) > 60.0 Glucose 206 H D POC Glucose POC Glucose Comment Lactic Acid 1.2 Calcium 7.4 L D Magnesium 1.7 L C-Reactive Prot, Quant PT 12.7 Seconds (9.0-12.9) 07/11/23 06:03 APTT 28.7 Seconds (25.1-36.5) 07/11/23 06:03 A&P - Vascular (1) Gangrene of left foot: Plan: I repeated the patient's vascular lab studies. His blood flow is normal to the left foot. This patient does not need any vascular surgery intervention at thistime. He should continue risk factor modification and high intensity statin with antiplatelet agent. We will follow-up in the office as an outpatient. Vascular surgery will sign off. Plan This patient has normal peripheral pulses and a normal vascular lab study from today. This patient is not in need of any vascular surgery intervention at thistime. We will follow him in the office. Will sign off today. He needs to continue risk factor modification high intensity statin therapy and antiplatelets. He understands agrees with the plan. This is explained to him. Documented By: Giovanni Ni MD 07/11/23905 Signed By: <Electronically signed by Giovanni Ni MD> 07/11/23905 [facility] Work Phone: Evaluation noteNo InformationNort Inte[employer] Other Evaluation noteNo assessment information available [facility] Work Phone: Evaluation note* Diagnosis Onset Date Resolution Status Diabetic foot infection acut e [facility] Work Phone: Evaluation note* Diagnosis Onset Date Resolution Status Acute hematogenous osteomyelitis, left ankle and foot acute [id number] acute Diabetic foot infection acut e Diarrhea acute Hypertension acute Osteomyelitis acute PAD (peripheral artery disease) acute Pseudomonas infection acute Sciatica, left side acute 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 acute Vomiting acute [facility] Work Phone: Evaluation note* Diagnosis Foot ulcer, left, with fat layer exposed (CMS/HCC)- 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) PVD (peripheral vascular disease) (CMS/HCC) Unspecified peripheral vascular disease Onychomycosis Dermatophytosis of nail Toe pain, left Pain in soft tissues of limb Toe pain, right Pain in soft tissues of limb documented in this encounter [facility] HealthcareEvaluation note* Diagnosis Onset Date Resolution Status Diabetic foot infection acut e HTN (hypertension) acute Hyperlipemia acute PAD (peripheral artery disease) acute Sepsis acute T2DM (type 2 diabetes mellitus) acute [facility] Work Phone: Evaluation note* Diagnosis Foot ulcer, left, with fat layer exposed (CMS/HCC)- 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) PVD (peripheral vascular disease) (CMS/HCC) Unspecified peripheral vascular disease Foot ulcer, left, with necrosis of muscle (HCC) (CMS/HCC) documented in this encounter [facility] HealthcareEvaluation note* Diagnosis Onset Date Resolution Status SONYA (acute kidney injury) ac josey Cellulitis of left foot acut e Constipation acute [id number] acute Diabetic foot infection acut e Gangrene of left foot acute Hypertension acute Hyperlipemia acute Hyponatremia acute Leukocytosis acute PAD (peripheral artery disease) acute PVD (peripheral vascular disease) acute Sepsis acute T2DM (type 2 diabetes mellitus) acute [facility] Work Phone: History and physical note Author Rohan Han [facility] July 11, 2023 8:33am Note Date/Time July 11, 2023 8:33am [facility] [address] [place] [address] Podiatry H&P Signed Patient: Sudeep Diego JR MR#: [id number] : 1950 Acct:[id number] Age/Sex: 72 / M Adm Date: 4 Loc: 3T Room: [address] [place] [address] Type: ADM IN Attending Dr: Brennan Cerrato MD Copies to: MD Tejas Cruz MD Nicholas Brown, DPM~ HPI Date of Service Date of Service: Date of Service: 07/11/2023 Time of Service: 08:24 History of Present Illness History of present illness: Mr. Diego is a 72 year old male well-known to me that was seen yesterday in office for left foot swelling redness and areas of prior ulceration and recent epidermal skin graft to the left first MPJ and lateral left foot. Patient had arecent past a left fourth and fifth metatarsal resection with nonhealing ulceration and has had healing ulceration since that time was seen in office forwound care but also had area of dry gangrenous area to the left first MPJ secondary to PVD and dry gangrene changes. Postdebridement noted capsule to thearea and attempt was made to heal however patient did come in post graft for first visit with admission of fevers and chills over the past 3 days. Patient is a brittle diabetic with history of PVD and recent revascularization approximately 3 months ago and last admission to [facility] hospital. Patient seen today for condition unrelated to prior procedure. Review of Systems Constitutional Constitutional: Reports body ache(s), Reports fever(s) and Reports night sweats Cardiovascular Comments: Denies chest pain shortness of breath or irregular rhythm Gastrointestinal Comments: Denies abdominal pain loose stool Musculoskeletal Comments: States pain to the left foot and history of degenerative disc disease of the back [facility] Medical History (Updated 07/11/23 @ 08:32 by Rohan Han DPM) Diabetes mellitus due to underlying condition with diabetic neuropathy, unspecified Prostate cancer PAD (peripheral artery disease) PVD (peripheral vascular disease) Osteomyelitis of foot, left, acute Neuropathy Amputated toe of left foot Sciatica, left side Cataract Singh's palsy Hypertension GERD (gastroesophageal reflux disease) Diabetes Prostate cancer Surgical History H/O angioplasty left anterior tibial artery H/O repair of rotator cuff Right History of appendectomy H/O hernia repair Hx of cholecystectomy Family History Father Hypertension Father Hypertension Mother Diabetes History of stroke Legacy [facility]am[facility] Problem: Diagnosed with Stroke Stroke Brother Cancer muscle Social History Smoking Status: Former smoker Tobacco Type: cigars Substance Use Type: Marijuana Substance Abuse Comment: former drinker quit several years ago Meds Medications and Allergies Allergies cefepime Allergy (Unknown, Verified 07/10/23 18:46) Hives lisinopril Allergy (Unknown, Verified 07/10/23 18:46) Swelling of Lip/Tongue/Throat, SWELLING metformin Allergy (Unknown, Verified 07/10/23 18:46) Back Pain, KIDNEY PAIN Home Medications atorvastatin 40 mg tablet 40 mg PO DAILY 01/13/23 [History Confirmed 07/10/23] baclofen 20 mg tablet 20 mg PO TID PRN muscle spasm 01/13/23 [History Confirmed 07/10/23] celecoxib 200 mg capsule 200 mg PO DAILY 01/13/23 [History Confirmed 07/10/23] clopidogrel 75 mg tablet (Plavix) 75 mg PO DAILY angioplasty left leg 3 months #90 tabs 01/13/23 [Rx Confirmed 07/10/23] duloxetine 60 mg capsule,delayed release 60 mg PO DAILY 01/13/23 [History Confirmed 07/10/23] flash glucose sensor (FreeStyle Shawn 2 Sensor kit) 01/13/23 [History Confirmed 02/23/23] gabapentin 800 mg tablet 800 mg PO TID 01/13/23 [History Confirmed 07/10/23] metoprolol succinate 50 mg tablet,extended release 24 hr 50 mg PO DAILY 01/13/23[History Confirmed 07/10/23] tramadol 50 mg tablet 50 mg PO Q6-12H PRN Pain 01/13/23 [History Confirmed 07/10/23] insulin glargine 100 unit/mL (3 mL) subcutaneous pen (Basaglar KwikPen U-100 Insulin) 37 unit subcut 2XD 02/23/23 [History Confirmed 07/10/23] insulin lispro 100 unit/mL subcutaneous pen (Humalog KwikPen (U-100) Insulin) See Rx Instructions .Route .COMPLEX 02/23/23 [History Confirmed 07/10/23] cefepime 2 gram solution for injection 2 g IV Q12H 35 days #70 ea 03/03/23 [Rx] nifedipine 30 mg tablet,extended release 24 hr 30 mg PO DAILY #30 tabs 03/04/23 [Rx Confirmed 07/10/23] omeprazole 20 mg capsule,delayed release 20 mg PO QAM 07/10/23 [History Confirmed 07/10/23] Exam Physical Exam Vital Signs: Temp Pulse Resp BP Pulse Ox O2 Del Method 97.8 F 85 16 142/78 H 98 Room Air 07/11/23 04:00 07/11/23 04:00 07/11/23 04:00 07/11/23 04:00 07/11/23 04:00 07/11/23 06:00 Narrative: LE EXAM: DERM: Ulceration present to lateral aspect of the left foot as well as medial aspect of the left first MPJ foot with notable ulceration to the medial aspect of the foot down to capsule region and slight sinus tract noted today to bone and suspected first MPJ region. Positive small blisters to the dorsum of the left first MPJ region as well as left great toe as well as erythema and edema and extends to the mid first metatarsal shaft region proximally. Negative crepitus noticed to the left foot Lateral left foot ulceration down to subcutaneous tissue with negative erythema slight fibrous slough and negative clinical signs infection at this time VASC: Warm to warm tibia to toes with barely palpable DP and PT pulses left foot NEURO: gross sensation diminished to left foot however positive palpation left first MPJ region MS: Positive palpation of left first MPJ region XRAY: Reviewed radiology report of no significant findings of osteolysis osteomyelitis however upon further inspection by myself notable small osteolyticchanges noted first this metatarsal head with possible sinus tract extending to the left first MPJ noted. Small subcutaneous air seen on the AP view near the lateral aspect of the first MPJ region . Findings significant for possible gas gangrene and osteomyelitis Results Labs 07/11/23 06:03 07/10/23 19:09 WBC 30 ESR 62 mm/hr (0-19) H 07/10/23 19:03 Assessment/Plan (1) Cellulitis of left foot: Code(s): L03.116 - Cellulitis of left lower limb (2) Gangrene of left foot: Code(s): I96 - Gangrene, not elsewhere classified (3) Diabetes mellitus due to underlying condition with diabetic neuropathy, unspecified: Code(s): E08.40 - Diabetes mellitus due to underlying condition with diabetic neuropathy,unspecified Plan Patient is scheduled for left first ray amputation with incision and drainage left foot. Pt understands the risks and benefits of the procedure including possible further infection/scar/poor wound healing/nerve damage/cardiovascular issues including DVT/PE/OR/TIA and loss of digit/limb/or life. Pt consents to procedure and is to be scheduled for surgery. Condition unrelated to prior procedures and most likely staged procedure. Consult for vascular as well as MRI ordered however due to critical appearance of the foot may not be able to obtain either prior to surgery and MRI may not beobtained however x-ray findings suggestive of joint sepsis and possible gas gangrene. Patient scheduled for surgery today Documented By: Rohan Han DPM 07/11/23 0824 Signed By: <Electronically signed by TOY Han> 07/11/23 0833 [facility] Work Phone: [facility] general Narrative - Reported* Type Description Date Medical History PROSTATE CANCER Medical History DM2 Medical History GERD Medical History HTN Medical History NEUROPATHY Medical History [place] Palsy Surgical History prostate surgery for cancer 01/25 Surgical History cholecystectomy 2010 Surgical History hernia repair 2009 Surgical History circumcision 11/2019 Hospitalization History SEE ABOVE PROTEIN LOUNGE Other [facility] general Narrative - Reported* Type Description Date Medical History PROSTATE CANCER Medical History DM2 Medical History GERD Medical History HTN Medical History NEUROPATHY Medical History [place] Palsy Surgical History prostate surgery for cancer 01/25 Surgical History cholecystectomy 2010 Surgical History hernia repair 2009 Surgical History circumcision 11/2019 Surgical History BILATERAL CATARACT REMOVAL 04/26 & 05/2022 Hospitalization History SEE ABOVE PROTEIN LOUNGE Other [facility] general Narrative - Reported* Type Description Date Medical History PROSTATE CANCER Medical History DM2 Medical History GERD Medical History HTN Medical History NEUROPATHY Medical History [place] Palsy Surgical History prostate surgery for cancer 01/25 Surgical History cholecystectomy 2010 Surgical History hernia repair 2009 Surgical History circumcision 11/2019 Surgical History BILATERAL CATARACT REMOVAL 04/26 & 05/2022 Surgical History tonsillectomy Surgical History appendectomy Surgical History rotator cuff tear repair Hospitalization History SEE ABOVE PROTEIN LOUNGE Other [facility] general Narrative - Reported* Type Description Date Medical History PROSTATE CANCER Medical History DM2 Medical History GERD Medical History HTN Medical History NEUROPATHY Medical History [place] Palsy Medical History PAD Surgical History prostate surgery for cancer 01/25 Surgical History cholecystectomy 2010 Surgical History hernia repair 2009 Surgical History circumcision 11/2019 Surgical History BILATERAL CATARACT REMOVAL 04/26 & 05/2022 Surgical History tonsillectomy Surgical History appendectomy Surgical History rotator cuff tear repair Surgical History PART OF LEFT FOOT REMOVED ON OUTER FOOT 2022 Hospitalization History SEE ABOVE SURGERY Recochem Other History general Narrative - Reported* Type Description Date Medical History PROSTATE CANCER Medical History DM2 Medical History GERD Medical History HTN Medical History NEUROPATHY Medical History [place] Palsy Medical History PAD Surgical History prostate surgery for cancer 01/25 Surgical History cholecystectomy 2010 Surgical History hernia repair 2009 Surgical History circumcision 11/2019 Surgical History BILATERAL CATARACT REMOVAL 04/26 & 05/2022 Surgical History tonsillectomy Surgical History appendectomy Surgical History rotator cuff tear repair Surgical History PART OF LEFT FOOT REMOVED ON OUTER FOOT 02/25/23 Hospitalization History SEE ABOVE SURGERY [facility] Other InstructionsNot on filedocumented in this encounter [email or web address] Summary Purpose Family History No Family History Records Found Relationship Condition Age at Onset Recorded Date/T karolina father Hypertension Unknown Not Specified Diabetes mellitus Unknown History of stroke Unknown Unknown Relationship Condition Age at Onset Recorded Date/T karolina father Hypertension Unknown Not Specified Diabetes mellitus Unknown History of stroke Unknown Unknown Cerebrovascular accident (CVA) Unknown brother Malignant neoplasm Unknown Advance Directives No Advanced Directives Records Found Advance Directive Response Recorded Date/ Time Advance Directives No March 31, 2018 12:20pm Advance Directive Response Recorded Date/ Time Advance Directives No March 31, 2018 11:20am Reason for Referral Reason DM II TOE WOUNDS Diagnosis 1 Type 2 diabetes wilfredo itus with hyperglycemia (E11.65) Referral Organization [facility] Referring Provider First Name Louise Referring Provider Last Name Ashleigh Referring Provider Specialty Nurse Pract itioner Referred Organization [facility] Referred Provider Rohan Han Referred Address ,[place], [place],[id number] Referred Provider Specialty Podiatry - S urgical Chiropody Referral Priority Routine Referral Appointment Date 2022-07-30 General Notes Socorro Higuera 07/2022 09:45:27 AM >CALL TO DR SHARMA'S OFFICE FOR SCHEDULING PATIENCE; ADDRESS: [address] [place] [address] PHONE: [phone]; PATIENT HAS BEEN DISCHARGED FROM PRACTICE DUE TO FINANCIAL PAST DUE/COLLECTIONS STATUS; Socorro Higuera 07/26/2022 09:52:59 AM >SCHEDULED WITH DR. ROHAN HAN IN [place] ON 07/30/22. BE THERE AT 2PM FOR A 230PM APPT. ADDRESS: [address] [place] [address]; PHONE: [phone]. ATTEMPTED TO INFORM PATIENT. VOICEMAIL FULL. WILL TRY AGAIN LATER. REFERRAL, OFFICE NOTES AND MED LIST FAXED TO [phone]. REACHED PATIENT AND HE IS INFORMED OF APPT STATUS. REFERRAL FAXED. 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 lt foot issues, hx diabetic Reason for Visit Acute hematogenous o steomyelitis, left ankle and foot [id number] Diabetic foot infection Diarrhea Hypertension Osteomyelitis PAD (peripheral artery disease) Pseudomonas infection Sciatica, left side 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 Vomiting Chief Complaint 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 lt foot issues, hx diabetic IV antibiotic therapy, osteomyelitis iv antibotic therapy, osteomyelitis E11.40 longterm current use of antibiotics Reason for Visit Acute hematogenous o steomyelitis, left ankle and foot [id number] Diabetic foot infection Diarrhea Hypertension Osteomyelitis PAD (peripheral artery disease) Pseudomonas infection Sciatica, left side 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 Vomiting Chief Complaint 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 lt foot issues, hx diabetic IV antibiotic therapy, osteomyelitis iv antibotic therapy, osteomyelitis E11.40 long term care administrator current use of antibiotics e10.42 m86.172 Reason for Visit Acute hematogenous o steomyelitis, left ankle and foot [id number] Diabetic foot infection Diarrhea Hypertension Osteomyelitis PAD (peripheral artery disease) Pseudomonas infection Sciatica, left side 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 Vomiting Chief Complaint 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 lt foot issues, hx diabetic IV antibiotic therapy, osteomyelitis iv antibotic therapy, osteomyelitis E11.40 long term care administrator current use of antibiotics e10.42 m86.172 long term care administrator current use of antibiotics Reason for Visit Acute hematogenous o steomyelitis, left ankle and foot [id number] Diabetic foot infection Diarrhea Hypertension Osteomyelitis PAD (peripheral artery disease) Pseudomonas infection Sciatica, left side 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 Vomiting Chief Complaint 2 Week Follow Up 3 Month Follow Up E11.40 Chief Complaint 2 Week Follow Up 3 Month Follow Up E11.40 L foot swelling,wounds Reason for Visit Diabetic foot infect ion HTN (hypertension) Hyperlipemia PAD (peripheral artery disease) Sepsis T2DM (type 2 diabetes mellitus) Chief Complaint 2 Week Follow Up 3 Month Follow Up E11.40 L foot swelling,wounds L foot swelling,wounds L foot swelling,wounds L foot swelling,wounds L foot swelling,wounds L foot swelling,wounds L foot swelling,wounds SONYA Reason for Visit SONYA (acute kidney in jury) Cellulitis of left foot Constipation [id number] Diabetic foot infection Gangrene of left foot Hypertension Hyperlipemia Hyponatremia Leukocytosis PAD (peripheral artery disease) PVD (peripheral vascular disease) Sepsis T2DM (type 2 diabetes mellitus) Additional Source Comments REASON FOR VISIT (unrecogniz ed section and content) Reason Comments Foot Ulcer Left foot ulcer/ yakov petra consult Reason Comments Post-op 1st post op (unrecognized sect ion and content) No Status Records FoundNo Status Records FoundNo Status Records FoundNo Status Records Found INFORMATION SOURCE (unrecogn ized section and content) DATE CREATED AUTHOR 07/27/2022 [facility] DATE CREATED AUTHOR AUTHOR'S ORGANIZ ATION 05/15/2023 [facility] DATE CREATED AUTHOR AUTHOR'S ORGANIZ ATION 07/12/2023 [facility] EPIC DATE CREATED AUTHOR AUTHOR'S ORGANIZ ATION 07/27/2023 [facility] Care Teams (unrecognized sec tion and content) Team Status: Active Member Role Status Dates Tejas Stevens MD Primary Care Provider Active Team Status: Inactive Member Role Status Dates Dhruv Bautista MD Attending Provider Active Tejas Stevens MD Primary Care Provider Active Team Status: Inactive Member Role Status Dates Tejas Stevens MD Primary Care Provider Active Dhruv Bautista MD Attending Provider Active Team Status: Active Member Role Status Dates Tejas Stevens MD Primary Care Provider Active Rico Carr DO Emergency Provider Active Brennan Cerrato MD Admit Provider, Attending Provider Ac tive Team Status: Inactive Member Role Status Dates Tejas Stevens MD Primary Care Provider Active Rico Carr , DO Emergency Provider Active Brennan Cerrato MD Admit Provider Active Michael Ramírez MD Other Provider Active Rohan Han DPM Other Provider Active Richa Slater LPN Other Provider Active Dhruv Bautista MD Other Provider Active Pamela Berry , MICROWAVE ENGINEER-C Other Provider Active Mayra Youngblood MD Other Provider Active Giovanni Ni MD Other Provider Active Orestes Mejia , DO Attending Provider Active Team Status: Inactive Member Role Status Dates Michael Ramírez MD Attending Provider Active Team Status: Active Member Role Status Dates John Ervin , Primary Care Provider Active Juan Ramon Shields APRN MICROWAVE ENGINEER-C Active Louise Sotelo APRN Attending Provider Active Team Status: Inactive Member Role Status Dates Rohan Han DPM Attending Provider Active Gem Carver Relationship Specialty Start Date End Date Tejas Stevens MD [address], [place] [id number] PCP - General Family Medicine 07/12/19 Gem Carver Relationship Specialty Start Date End Date Tejas Stevens MD PCP - General Cardiology 11/07/22 Tejas Stevens MD [address] [place] [phone] PCP - Devoted 05/26/23 Gem Carver Relationship Specialty Start Date End Date Tejas Stevens MD PCP - General Cardiology 11/07/22 Tejas Stevens MD [address] [place] [phone] PCP - Devoted 05/26/23 Team Status: Inactive Member Role Status Dates Michael Ramírez MD Attending Provider Active Sta rt: April 30, 2023 End: April 30, 2023 Team Status: Inactive Member Role Status Dates Louise Sotelo APRN Attending Provider Active Start: June 26, 2023 End: June 26, 2023 Team Status: Inactive Member Role Status Dates John Ervin DO Primary Care Provider Active Start: June 26, 2023 End: June 26, 2023 Juan Ramon Shields APRN MICROWAVE ENGINEER-C Active Sta rt: June 26, 2023 End: June 26, 2023 Louise Sotelo APRN Attending Provider Active Start: June 26, 2023 End: June 26, 2023 Gem Carver Relationship Specialty Start Date End Date Tejas Stevens MD PCP - General Cardiology 11/07/22 Tejas Stevens MD [address] [place] [phone] PCP - Devoted 05/26/23 Team Status: Active Member Role Status Dates Tejas Stevens MD Primary Care Provider Active S tart: July 10, 2023 Brittney Hudson APRN Emergency Provider Active Start: July 10, 2023 Arnaldo Thomas MD Admit Provider, Atte nding Provider Active Start: July 10, 2023 Gem Carver Relationship Specialty Start Date End Date Teajs Stevens MD PCP - General Cardiology 11/07/22 Tejas Stevens MD [address] [place] [phone] PCP - Devoted 05/26/23 Team Status: Active Member Role Status Dates Tejas Stevens MD Primary Care Provider Active S tart: July 10, 2023 Brittney Hudson APRN Emergency Provider Active Start: July 10, 2023 Arnaldo Thomas MD Admit Provider Active Start: July 10, 2023 Michael Ramírez MD Other Provider Active Start: July 10, 2023 Rohan Han DPM Other Provider Active Sta rt: July 10, 2023 Mayra Youngblood MD Other Provider Active Start : July 10, 2023 eTllo Nava MD Attending Provider Active St art: July 10, 2023 Sanket Hammer MD Other Provider Active Start: F ebruvirgil 2023 Richa Slater LPN Other Provider Active Star t: July 10, 2023 Dhruv Bautista MD Other Provider Active Start : July 10, 2023 Pamela Berry , MICROWAVE ENGINEER-C Other Provider Active St art: July 10, 2023 Giovanni Ni MD Other Provider Active Start: July 10, 2023 Hermes Morton MD Other Provider Active Start: July 10, 2023 Team Status: Active Member Role Status Dates Tejas Stevens MD Primary Care Provider Active S tart: July 10, 2023 Brittney Hudson APRN Emergency Provider Active Start: July 10, 2023 Arnaldo Thomas MD Admit Provider, Othe r Provider Active Start: July 10, 2023 Jesica Juan APRN Attending Provider Active S tart: July 10, 2023 Team Status: Active Member Role Status Dates Tejas Stevens MD Primary Care Provider Active S tart: July 11, 2023 Brittney Hudson APRN Emergency Provider Active Start: July 11, 2023 Arnaldo Thomas MD Admit Provider Active Start: July 11, 2023 Brennan Cerrato MD Other Provider Active Start: 2023 Michael Ramírez MD Other Provider Active Start: July 11, 2023 Rohan Han DPM Other Provider Active Sta rt: July 11, 2023 Giovanni Ni MD Attending Provider Active Start: July 11, 2023 Team Status: Active Member Role Status Dates Tejas Stevens MD Primary Care Provider Active S tart: July 12, 2023 Brittney Hudson APRN Emergency Provider Active Start: July 12, 2023 Arnaldo Thomas MD Admit Provider Active Start: July 12, 2023 Brennan Cerrato MD Other Provider Active Start: 2023 Michael Ramírez MD Attending Provider, Other Provider Active Start: July 12, 2023 Rohan Han DPM Other Provider Active Sta rt: July 12, 2023 Mayra Youngblood MD Other Provider Active Start : July 12, 2023 Team Status: Active Member Role Status Dates Tejas Stevens MD Primary Care Provider Active S tart: July 13, 2023 Brittney Hudson APRN Emergency Provider Active Start: July 13, 2023 Arnaldo Thomas MD Admit Provider Active Start: July 13, 2023 Michael Ramírez MD Other Provider Active Start: July 13, 2023 Rohan Han DPM Other Provider Active Sta rt: July 13, 2023 Mayra Youngblood MD Other Provider Active Start : July 13, 2023 Shun Manning MD Attending Provider, Other Provider Active Start: July 13, 2023 Team Status: Active Member Role Status Dates Tejas Stevens MD Primary Care Provider Active S tart: July 14, 2023 Brittney Hudson APRN Emergency Provider Active Start: July 14, 2023 Arnaldo Thomas MD Admit Provider Active Start: July 14, 2023 Michael Ramírez MD Other Provider Active Start: July 14, 2023 Rohan Han DPM Other Provider Active Sta rt: July 14, 2023 Mayra Youngblood MD Other Provider Active Start : July 14, 2023 Tello Nava MD Other Provider Active Start: July 14, 2023 Hermes Morton MD Other Provider Active Start: July 14, 2023 Georgi Morgan MD Attending Provider Active Star t: July 14, 2023 Team Status: Active Member Role Status Dates Tejas Stevens MD Primary Care Provider Active S tart: July 15, 2023 Brittney Hudson APRN Emergency Provider Active Start: July 15, 2023 Arnaldo Thomas MD Admit Provider Active Start: July 15, 2023 Michael Ramírez MD Other Provider Active Start: July 15, 2023 Rohan Han DPM Other Provider Active Sta rt: July 15, 2023 Mayra Youngblood MD Other Provider Active Start : July 15, 2023 Tello Nava MD Other Provider Active Start: July 15, 2023 Hermes Morton MD Other Provider Active Start: July 15, 2023 Sanket Hammer MD Attending Provider, Other Provider Active Start: July 15, 2023 Team Status: Inactive Member Role Status Dates Tejas Stevens MD Primary Care Provider Active S tart: July 18, 2023 End: July 18, 2023 Rancho Kay MD Attending Provider Active Start : July 18, 2023 End: July 18, 2023 Goals (unrecognized section and content) Goals may be documented in a n alternate section FOR RECORDS PERTAINING TO PATIENTS WHO ARE OR HAVE BEEN ENROLLED IN A CHEMICAL DEPENDENCY/SUBSTANCEABUSE PROGRAM, SOME INFORMATION MAY BE OMITTED. This clinical summary was aggregated from multiple sources. Caution should be exercised in using it in the provision of clinical care. This summary normalizes information from multiple sources, and as a consequence, information in this document may materially change the coding, format and clinical context of patient data. In addition, data may be omitted in some cases. CLINICAL DECISIONS SHOULD BE BASED ON THE PRIMARY CLINICAL RECORDS. [employer] provides no warranty or guarantee of the accuracy or completeness of information in this document.
[2023-07-31 23:46] LABS: Hematocrit 24.3 % (42.0-54.0); Hemoglobin 7.8 g/dL (14.0-18.0); Mean Corpuscular HGB Conc 32.1 g/dL (29.9-35.2); Mean Corpuscular Volume 93.5 fL (80.0-94.0); Mean Platelet Volume 9.6 fL (9.5-13.5); Platelet Count 324 10^3/uL (150-450); Red Cell Distribution Width 18.2 % (11.0-15.0); White Blood Count 14.5 10^3/uL (4.0-11.0)
[2023-07-31 23:51] VITALS: PULSE 108; RESP 25; O2SAT 93
[2023-07-31 23:56] VITALS: TEMP 37.7
[2023-08-01] VITALS (10 sets, daily range): BP systolic 105–174; BP diastolic 64–89; PULSE 86–110; RESP 14–32; O2SAT 92–100
[2023-08-01 00:04] LABS: Lactate/Lactic Acid 1.8 mmol/L (0.4-2.0)
[2023-08-01] MEDS: LORAZEPAM 0.5 MG TABLET 1 MG PO (00:07)
[2023-08-01 00:10] LABS: Alanine Aminotransferase 16 U/L (16-63); Albumin Globulin Ratio 0.5; Albumin Level 2.4 g/dL (3.4-5.0); Alkaline Phosphatase 89 U/L (46-116); Aspartate Amino Transferase 30 U/L (15-37); BUN Creatinine Ratio 9.2; Bilirubin Total 0.5 mg/dL (0.2-1.0); Carbon Dioxide 23.2 mmol/L (21.0-32.0); Chloride 98 mmol/L (98-107); Estimated GFR (African America 25 (>=60); Estimated GFR (Non-African Ame 20 (>=60); Globulin 4.5 g/dL; Glucose 125 mg/dL (74-106); Potassium 4.2 mmol/L (3.5-5.1); Sodium 126 mmol/L (136-145); Total Protein 6.9 g/dL (6.4-8.2)
[2023-08-01] MEDS: FUROSEMIDE 100 MG/10 ML VIAL 80 MG IVP (00:10)
[2023-08-01 00:12] LABS: Troponin I High Sensitivity 507.7 pg/mL (4.0-76.1)
[2023-08-01 00:20] LABS: PROCALCITONIN 0.34 ng/mL (0.00-0.50)
[2023-08-01 00:52] LABS: Segmented Neut Absolute Manual 13.19 10^3/uL (1.4-6.5)
[2023-08-01 01:07] LABS: Adenovirus NOT DETECTED (NOT DETECTE); Bordetella parapertussis NOT DETECTED (NOT DETECTE); Coronavirus 229E NOT DETECTED (NOT DETECTE); Coronavirus HKU1 NOT DETECTED (NOT DETECTE); Coronavirus NL63 NOT DETECTED (NOT DETECTE); Coronavirus OC43 NOT DETECTED (NOT DETECTE); Human Metapneumovirus NOT DETECTED (NOT DETECTE); Human Rhinovirus/Enterovirus NOT DETECTED (NOT DETECTE); Influenza B NOT DETECTED (NOT DETECTE); Mycoplasma pneumoniae NOT DETECTED (NOT DETECTE); Parainfluenza Virus 1 NOT DETECTED (NOT DETECTE); Parainfluenza Virus 2 NOT DETECTED (NOT DETECTE); Parainfluenza Virus 3 NOT DETECTED (NOT DETECTE); Parainfluenza Virus 4 NOT DETECTED (NOT DETECTE); Respiratory Syncytial Virus NOT DETECTED (NOT DETECTE); SARS-CoV-2 NOT DETECTED (NOT DETECTE)
--- NOTE | 2023-08-01 01:35 | RESP.RT ---
fio2 decreased to 65%
[2023-08-01 02:17] LABS: Influenza A\\H3 DETECTED (NOT DETECTE)
[2023-08-01] MEDS: LORAZEPAM 2 MG/ML 1 ML VIAL 1 MG IV (03:28)
[2023-08-01] MEDS: ETOMIDATE 20 MG/10 ML VIAL IVP (04:05)
[2023-08-01] MEDS: SUCCINYLCHOLINE CHLORIDE 20 MG/ML VIAL 80 MG IV (04:09)
--- NOTE | 2023-08-01 04:17 | XR_ITS ---
[address] [address] Patient Name: ARJUN MOSCOSO JR MRN: [id number] date: 1950 Sex: M Assigned Patient Location: ER Current Patient Location: ER Accession/Order Number: [id number] Exam Date: 08/01/2023 04:25 Report Date: 08/01/2023 04:54 At the request of: MARC MARKER Procedure: XR chest 1V SINGLE VIEW CHEST: 08/01/2023 4:25 AM EST CLINICAL HISTORY:s/p intubation COMPARISONS: Portable chest 07/31/2023 TECHNIQUE: Single frontal view of the chest, utilizing portable technique. Portable radiography should be considered a technically compromised study. Strongly consider dedicated PA and lateral chest radiographs, as clinically indicated. FINDINGS: LINES AND TUBES: Endotracheal tube tip in good position approximately 5 cm above shakira. Feeding tube tip below left hemidiaphragm. Side-port may be just above the diaphragm. Recommend further advancement of tube approximately 8 to 9 cm. Multiple external cardiac leads remain. Dual-lumen right IJ Vas-Cath stable. Tip directed over proximal SVC. CARDIAC SILHOUETTE: Stable. Upper limits normal. Mild vascular congestion. MEDIASTINAL AND HILAR CONTOUR: Within normal limits. PULMONARY PARENCHYMA AND PLEURA: Worsening extensive bilateral pulmonary infiltrates with mixed alveolar and interstitial pattern disease throughout both lungs with dense bilateral alveolar/airspace areas of consolidation particularly in the right perihilar and lower lobe. Worsening pulmonary edema and/or infection. No pneumothorax. No significant pleural effusion. There may be small dependent pleural fluid. OSSEOUS STRUCTURES:Nothing significant. OTHER COMMENTS:None. XR/XR chest 1V IMPRESSION: 1. Worsening bilateral pulmonary edema and/or extensive infiltrates in both lungs as discussed. 2. NG tube tip in stomach. Side port may be above GE junction. Recommend additional advancement 8 to 10 cm. 3. Satisfactory endotracheal tube position. This report was generated with voice recognition software. Effort has been made to ensure accuracy of this report, however, occasional wording errors may persist. Please contact our office with any questions. Electronically authenticated by: YONI BEAVERS Date: 08/01/2023 04:54
--- NOTE | 2023-08-01 04:29 | PC.NURSE ---
0400 EMS returned with patient. Patient pulling of mask. at cart side, decision to intubate. 0408 #8 ET tube placed at 24 cm at lip. Bilateral breath sounds noted. 0409 OG placed with immediate return. Placement verified. 0410 wrist restraints placed. 0415 Santana placed0 output.
[2023-08-01] MEDS: PROPOFOL 1,000 MG/100 ML VIAL 21.2420000000000009 MG IV (04:36)
--- NOTE | 2023-08-01 05:31 | PC.NURSE ---
NG advanced to [address]'s order.
== END 2023-08-01 05:48 | disposition short-term general hospital (02) ==
PROVIDERS: Emergency Provider Emergency Medicine; PCP Family Medicine
DX: J96.01 Acute respiratory failure with hypoxia (principal); I50.9 Heart failure, unspecified; R79.89 Other specified abnormal findings of blood chemistry; D64.9 Anemia, unspecified; N18.6 End stage renal disease; Z87.891 Personal history of nicotine dependence; Z99.2 Dependence on renal dialysis; Z79.899 Other long term (current) drug therapy; E78.5 Hyperlipidemia, unspecified; Z89.422 Acquired absence of other left toe(s); Z20.822 Contact with and (suspected) exposure to COVID-19
CPT/HCPCS: 0202U; 31500; 36415; 36600; 71045; 80053; 82805; 83605; 83880; 84145; 84484; 85007; 85027; 87040; 93005; 94660; 94799; 96374; 96375; 99285

== ENCOUNTER 2023-10-30 23:43 | Inpatient (IN) | payer OTHER, SELFPAY ==
[2023-10-30 23:47] VITALS: BP 164/84; PULSE 80; TEMP 37; O2SAT 91; O2SAT 92; BMI 33.3
[2023-10-30 23:48] VITALS: BP 164/81; O2SAT 91
[2023-10-30 23:50] VITALS: PULSE 87; O2SAT 96
--- NOTE | 2023-10-30 23:51 | ECG_ITS ---
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
[2023-10-31] VITALS (41 sets, daily range): BP systolic 133–176; BP diastolic 69–83; PULSE 64–86; TEMP 36.6–37.1; O2SAT 92–98; BMI 33.1
--- NOTE | 2023-10-31 00:13 | ED_ITS ---
HPI - SOB/Dyspnea General Chief Complaint: Shortness of Breath/Dyspnea Stated Complaint: SOB Time Seen by Provider: 10/31/23 00:07 Source: patient and family Mode of arrival: Wheelchair Limitations: no limitations History of Present Illness HPI Narrative: past history of diabetes, CKD(former dialysis patient), CHF. history of fluid retention. Seen by his PCP yesterday and lasix changed to Bumex due to fluid retention. Tonight family states his pulse ox decreased into the 70s on RA at home. Family brought him to the ER. RA pulse ox on arrival 91%. Denies chest pain. States now that he is on 02 he is breathing easier but still feels a little short of breath. No abdominal pain or nausea or fever Related Data Home Medications ?Medication ?Instructions ?Recorded ?Confirmed atorvastatin 40 mg tablet 40 mg PO QPM 03/06/23 10/31/23 clopidogrel 75 mg tablet 75 mg PO DAILY 03/06/23 10/31/23 duloxetine 60 mg capsule,delayed 60 mg PO DAILY 03/06/23 10/31/23 release metoprolol succinate 50 mg 50 mg PO DAILY 03/06/23 10/31/23 tablet,extended release 24 hr nifedipine 30 mg tablet,extended 30 mg PO DAILY 03/06/23 10/31/23 release 24 hr amlodipine 10 mg tablet 10 mg PO .once daily 07/31/23 10/31/23 bumetanide 2 mg tablet 2 mg PO .once daily 10/31/23 10/31/23 famotidine 20 mg tablet 20 mg PO BID 10/31/23 10/31/23 gabapentin 300 mg capsule 300 mg PO TID 10/31/23 10/31/23 insulin glargine 100 unit/mL (3 20 unit subcut BID 10/31/23 10/31/23 mL) subcutaneous pen (Lantus Solostar U-100 Insulin) melatonin 3 mg tablet 3 mg PO .once daily at bedtim 10/31/23 10/31/23 quetiapine 25 mg tablet 25 mg PO BID 10/31/23 10/31/23 sertraline 50 mg tablet (Zoloft) 25 mg PO DAILY 10/31/23 10/31/23 sevelamer carbonate 800 mg tablet 800 mg PO TID 10/31/23 10/31/23 spironolactone 100 mg tablet 50 mg PO DAILY 10/31/23 10/31/23 (Aldactone) trazodone 50 mg tablet 50 mg PO .once daily at bedtim 10/31/23 10/31/23 Allergies Allergy/AdvReac Type Severity Reaction Status Date / Time cefepime Allergy Severe Hives Verified 10/30/23 23:51 lisinopril Allergy Severe Verified 10/30/23 23:51 metformin Allergy Severe Verified 10/30/23 23:51 Review of Systems ROS Status of ROS 10 or more systems reviewed and unremark able except as noted in history and below [facility] Medical History (Updated 10/31/23 @ 19:25 by Boris Cuevas MD) PVD (peripheral vascular disease) ?I73.9 - Peripheral vascular disease, unspecified (ICD-10) Type 2 diabetes mellitus ?E11.9 - Type 2 diabetes mellitus without complications (ICD-10) CKD (chronic kidney disease) stage 4, GFR 15-29 ml/min ?N18.4 - Chronic kidney disease, stage 4 (severe) (ICD-10) Peripheral vascular disease due to secondary diabetes ?E13.51 - Other specified diabetes mellitus with diabetic peripheral angiopathy without gangrene (ICD-10) Type 2 diabetes mellitus with diabetic polyneuropathy ?E11.42 - Type 2 diabetes mellitus with diabetic polyneuropathy (ICD-10) Hypertension ?I10 - Essential (primary) hypertension (ICD-10) Type 2 diabetes mellitus with hyperglycemia ?E11.65 - Type 2 diabetes mellitus with hyperglycemia (ICD-10) Ulcer of left foot due to type 2 diabetes mellitus ?E11.621 - Type 2 diabetes mellitus with foot ulcer (ICD-10) ?L97.529 - Non-pressure chronic ulcer of other part of left foot with uns pecified severity (ICD-10) Osteomyelitis of left foot ?M86.9 - Osteomyelitis, unspecified (ICD-10) SONYA (acute kidney injury) ?N17.9 - Acute kidney failure, unspecified (ICD-10) Speech abnormality ?R47.9 - Unspecified speech disturbances (ICD-10) Pulmonary edema with congestive heart failure ?I50.1 - Left ventricular failure, unspecified (ICD-10) Elevated troponin I level ?R79.89 - Other specified abnormal findings of blood chemistry (ICD-10) Chronic renal disease ?N18.9 - Chronic kidney disease, unspecified (ICD-10) Diabetes ?E11.9 - Type 2 diabetes mellitus without complications (ICD-10) Cataracts, both eyes ?H26.9 - Unspecified cataract (ICD-10) Gangrene ?I96 - Gangrene, not elsewhere classified (ICD-10) Amputation of toe of left foot ?S98.132A - Complete traumatic amputation of one left lesser toe, initial encounter (ICD-10) Atrial fibrillation ?I48.91 - Unspecified atrial fibrillation (ICD-10) History of mechanical ventilation ?Z92.89 - Personal history of other medical treatment (ICD-10) Congestive heart failure (CHF) ?I50.9 - Heart failure, unspecified (ICD-10) Dialysis patient ?Z99.2 - Dependence on renal dialysis (ICD-10) Dyslipidemia ?E78.5 - Hyperlipidemia, unspecified (ICD-10) Urticaria ?L50.9 - Urticaria, unspecified (ICD-10) Surgical History (Updated 10/31/23 @ 04:19 by Winnie Lynn) History of tonsillectomy ?Z90.89 - Acquired absence of other organs (ICD-10) History of hernia repair ?Z98.890 - Other specified postprocedural states (ICD-10) ?Z87.19 - Personal history of other diseases of the digestive system (ICD-10) Hx of cholecystectomy ?Z90.49 - Acquired absence of other specified parts of digestive tract (ICD- 10) Family History (Updated 10/31/23 @ 04:20 by Winnie Lynn) Brother Family history of cancer Mother Family history of diabetes mellitus Social History (Updated 10/31/23 @ 04:22 by Winnie Lynn) Within the past year, how often did you have a drink containing alcohol: never Within the past year, how often did you have six or more drinks on one occasion: never Score interpretation: A score less than 4 is consistent with normal alcohol c onsumption. Smoking status: Former smoker Non-prescribed substance use: denies use Non-prescribed substance use details: Previous Crack addict. Clean since 1988 Previous occupational history: Retired Highest level of school completed/degree received: high school graduate Are you now , , , , never or living with a partner: In a typical week, how many times do you talk on the telephone with family, friends, or neighbors: 3 or more times per week How often do you get together with friends or relatives: 3 or more times per week Little interest or pleasure in doing things: not at all Feeling down, depressed, or hopeless: not at all Feel stressed/tense/nervous/anxious/difficulty sleeping: not at all Exam Constitutional Vital Signs, click to edit/add: Last Vital Signs Temp 98.1 F 10/31/23 12:00 Pulse 71 10/31/23 18:00 Resp 16 10/31/23 12:00 BP 142/69 H 10/31/23 12:00 Pulse Ox 94 L 10/31/23 12:00 O2 Del Method Room Air 10/31/23 12:00 O2 Flow Rate 2 10/31/23 11:03 Common normals: no apparent distress, average body habitus, oriented x3, no limitations, healthy appearing, alert and well nourished [facility] Common normals: normocephalic and head/scalp atraumatic Eye Common normals: EOMs intact bilaterally and conjunctivae normal Respiratory Common normals: normal respiratory effort, no retractions, no use of accessory muscles and clear to auscultation bilaterally Cardio Common normals: regular rate, regular rhythm, S1 normal heart sound and S2 normal heart sound GI Common normals: Normal to inspection, nondistended, normoactive bowel sounds present and soft to palpation Extremity Other: 1+ pitting edema bilat lower ext. partial amputation left foot Neuro Common normals: oriented x3, CN's II-XII intact bilaterally and moves all extremities Psych Appearance: grossly normal Course Vital Signs Vital signs: Vital Signs Temperature 98.6 F 10/30/23 23:47 Pulse Rate 80 10/30/23 23:47 Respiratory Rate 20 10/30/23 23:47 Blood Pressure 164/84 H 10/30/23 23:47 Pulse Oximetry 91 L 10/30/23 23:47 Oxygen Delivery Method Room Air 10/30/23 23:47 Temperature 98.1 F 10/31/23 12:00 Pulse Rate 71 10/31/23 18:00 Respiratory Rate 16 10/31/23 12:00 Blood Pressure 142/69 H 10/31/23 12:00 Pulse Oximetry 94 L 10/31/23 12:00 Oxygen Delivery Method Room Air 10/31/23 12:00 Oxygen Delivery Flow Rate 2 10/31/23 11:03 MDM - SOB/Dyspnea MDM Narrative Medical decision making narrative: patient with past history of CHF, CKD and diabetes. Presents complaining of shortness of breath. reported pulse ox in 70s at home. Has worsening edema and lasix changed to bumex my his PCP. Exam positive for lower ext edema. BNP elevated. CT with findings of CHF/interstitial edema and mild-mod bilat pleural effusions. discussed with the hospitalist and patient accepted for admission Lab Data Labs: Lab Results 10/30/23 Range/Units 23:59 WBC 15.4 H (4.0-11.0) 10^3/uL RBC 2.51 L (4.70-6.10) 10^6/uL Hgb 7.5 L (14.0-18.0) g/dL Hct 22.9 L* (42.0-54.0) % MCV 91.2 (80.0-94.0) fL MCH 29.9 (25.9-34.0) pg MCHC 32.8 (29.9-35.2) g/dL RDW 14.6 (11.0-15.0) % Plt Count 326 (150-450) 10^3/uL MPV 9.9 (9.5-13.5) fL Seg Neuts % (Manual) 79.0 Lymphocytes % (Manual) 16.0 L (20.5-60.0) % Atypical Lymphs % (Man) 1.0 % Monocytes % (Manual) 3.0 (1.7-12.0) % Eosinophils % (Manual) 0.0 L (0.9-7.0) % Basophils % (Manual) 1.0 (0.2-2.0) % Neutrophils # (Manual) 12.16 H (1.4-6.5) 10^3/uL Lymphocytes # (Manual) 2.46 (1.20-3.80) 10^3/uL Abs Atypical Lymphs Man 0.15 Monocytes # (Manual) 0.46 (0.30-0.80) 10^3/uL Eosinophils # (Manual) 0.00 (0.00-0.70) 10^3/uL Basophils # (Manual) 0.15 H (0.00-0.10) 10^3/uL Hypersegmented Neuts 4+ Toxic Granulation 4+ Polychromasia 2+ Hypochromasia 2+ Poikilocytosis 3+ Anisocytosis 3+ Sodium 140 (136-145) mmol/L Potassium 4.1 (3.5-5.1) mmol/L Chloride 107 (98-107) mmol/L Carbon Dioxide 28.2 (21.0-32.0) mmol/L Anion Gap 8.9 BUN 20.0 H (7.0-18.0) mg/dL Creatinine 1.84 H (0.70-1.30) mg/dL Est GFR ( Amer) 44 L (>=60) Est GFR (Non-Af Amer) 36 L (>=60) BUN/Creatinine Ratio 10.9 Glucose 137 H (74-106) mg/dL Calcium 8.0 L (8.5-10.1) mg/dL Iron 40.0 L (65.0-175.0) ug/dL TIBC 192.0 L (250.0-450.0) ug/dL % Saturation 20.8 % Ferritin 669.0 H (26.0-388.0) ng/mL Troponin I High Sens 58.6 (4.0-76.1) pg/mL NT-Pro-B Natriuret Pep 2532.0 H* (<=900.0) pg/mL Vitamin B12 379.0 (193.0-986.0) pg/mL Folate 14.30 (8.60-58.90) ng/mL Imaging Data Chest x-ray: Radiologist's impression: ITS Impressions Chest X-Ray 10/31/23 00:17 IMPRESSION: 1. Left basilar density with small bilateral pleural effusions, left greater than right. This may represent atelectasis or pneumonia. 2. Diffuse interstitial prominence which may represent pulmonary interstitial edema or atypical infectious etiology. Electronically authenticated by: SHEREE BETANCOURT Date: 10/31/2023 01:[address] 10/31/23 01:45 IMPRESSION: 1. Constellation of findings suggesting congestive heart failure with interstitial edema and small to moderate bilateral pleural effusions. Bilateral lower lobe subsegmental atelectasis. 2. Severe coronary artery calcifications. Small pericardial effusion measuring up to 1 centimeter in thickness. 3. Fluid is seen within the distal esophagus suggesting gastroesophageal reflux. Electronically authenticated by: SHEREE BETANCOURT Date: 10/31/2023 02:57 Discharge Plan Discharge Chief Complaint: Shortness of Breath/Dyspnea Clinical Impression: Congestive heart failure Patient Disposition: Admitted As Inpatient Time of Disposition Decision: 03:18 Condition: Fair Discharge Date/Time: 10/31/23 03:50
--- NOTE | 2023-10-31 00:17 | XR_ITS ---
The [address] [address] Patient Name: ARJUN MOSCOSO JR MRN: [id number] date: 1950 Sex: M Assigned Patient Location: ER Current Patient Location: ER Accession/Order Number: [id number] Exam Date: 10/31/2023 00:35 Report Date: 10/31/2023 01:26 At the request of: REGINALD YEH Procedure: XR chest 2V XR chest 2V 10/31/2023 12:35 AM EDT CLINICAL INDICATION: Shortness of breath COMPARISON: 08/01/2023 TECHNIQUE: PA and lateral views of the chest. FINDINGS: There are no tubes or implants noted. Cardiac silhouette appears borderline enlarged. Diffuse interstitial prominence. There is left basilar density with small bilateral pleural effusions, left greater then right. No pneumothorax. Osseous structures demonstrate degenerative changes. Soft tissues are grossly normal. XR/XR chest 2V IMPRESSION: 1. Left basilar density with small bilateral pleural effusions, left greater than right. This may represent atelectasis or pneumonia. 2. Diffuse interstitial prominence which may represent pulmonary interstitial edema or atypical infectious etiology. Electronically authenticated by: SHEREE BETANCOURT Date: 10/31/2023 01:26
[2023-10-31 00:27] LABS: Hemoglobin 7.5 g/dL (14.0-18.0); Mean Corpuscular HGB Conc 32.8 g/dL (29.9-35.2); Mean Corpuscular Hemoglobin 29.9 pg (25.9-34.0); Mean Corpuscular Volume 91.2 fL (80.0-94.0); Mean Platelet Volume 9.9 fL (9.5-13.5); Platelet Count 326 10^3/uL (150-450); Red Blood Count 2.51 10^6/uL (4.70-6.10); Red Cell Distribution Width 14.6 % (11.0-15.0); White Blood Count 15.4 10^3/uL (4.0-11.0)
[2023-10-31 00:41] LABS: Anion Gap 8.9; BUN Creatinine Ratio 10.9; Carbon Dioxide 28.2 mmol/L (21.0-32.0); Chloride 107 mmol/L (98-107); Estimated GFR (African America 44 (>=60); Estimated GFR (Non-African Ame 36 (>=60); Glucose 137 mg/dL (74-106); Potassium 4.1 mmol/L (3.5-5.1); Sodium 140 mmol/L (136-145); Troponin I High Sensitivity 58.6 pg/mL (4.0-76.1)
[2023-10-31 00:44] LABS: Hematocrit 22.9 % (42.0-54.0)
[2023-10-31 00:56] LABS: Anisocytosis 3+; Atypical Lymphocytes Abs Man 0.15; Basophils Abs Manual 0.15 10^3/uL (0.00-0.10); Hypersegmented Neutrophils 4+; Hypochromasia 2+; Lymphocytes Absolute Manual 2.46 10^3/uL (1.20-3.80); Monocytes Absolute Manual 0.46 10^3/uL (0.30-0.80); Poikilocytosis 3+; Polychromasia 2+; Segmented Neut Absolute Manual 12.16 10^3/uL (1.4-6.5); Toxic Granulation 4+
--- NOTE | 2023-10-31 01:45 | CT_ITS ---
[address] [address] Patient Name: ARJUN MOSCOSO JR MRN: [id number] date: 1950 Sex: M Assigned Patient Location: ER Current Patient Location: ER Accession/Order Number: [id number] Exam Date: 10/31/2023 01:57 Report Date: 10/31/2023 02:57 At the request of: REGINALD YEH Procedure: CT chest wo con EXAMINATION: CT chest wo con, 10/31/2023 1:57 AM EDT HISTORY: short of breath COMPARISON: None. TECHNIQUE: CT scan of the chest was performed without IV contrast. CT dose reduction technique was used, including Automated Exposure Control. FINDINGS: TUBES AND IMPLANTS: None. CHEST: CHEST WALL AND LOWER NECK: Unremarkable. MEDIASTINUM AND GILDARDO: No lymphadenopathy by CT size criteria. Fluid is seen within the distal esophagus. BONES: No suspicious lesions. Multilevel degenerative changes of the spine. AORTA: No aneurysm PULMONARY ARTERIES: Unremarkable. CORONARY ARTERIES: Severe coronary artery calcifications. HEART: Moderate cardiomegaly. Small pericardial effusion measuring up to 1 centimeter in thickness LUNG AND AIRWAYS: Patchy ground glass opacities with interlobular septal thickening. Bilateral lower lobe subsegmental atelectasis. PLEURA: Small to moderate bilateral pleural effusions UPPER ABDOMEN: No acute findings. CT/CT chest wo con IMPRESSION: 1. Constellation of findings suggesting congestive heart failure with interstitial edema and small to moderate bilateral pleural effusions. Bilateral lower lobe subsegmental atelectasis. 2. Severe coronary artery calcifications. Small pericardial effusion measuring up to 1 centimeter in thickness. 3. Fluid is seen within the distal esophagus suggesting gastroesophageal reflux. Electronically authenticated by: SHEREE BETANCOURT Date: 10/31/2023 02:57
[2023-10-31] MEDS: FUROSEMIDE 40 MG/4 ML VIAL IVP ×2 (03:36→17:05)
[2023-10-31 05:59] LABS: Basophils Absolute Auto 0.1 10^3/uL (0.0-0.1); Basophils Percent Auto 0.7 % (0.2-2.0); Eosinophils Absolute Auto 0.3 10^3/uL (0.0-0.7); Eosinophils Percent Auto 2.2 % (0.9-7.0); Hemoglobin 7.3 g/dL (14.0-18.0); Immature Granulocytes Abs Auto 0.08 10^3/uL (0.00-0.03); Immature Granulocytes Pct Auto 0.5 % (0.0-0.5); Lymphocytes Absolute Auto 2.6 10^3/uL (1.2-3.8); Lymphocytes Percent Auto 17.5 % (20.5-60.0); Mean Corpuscular HGB Conc 32.7 g/dL (29.9-35.2); Mean Corpuscular Hemoglobin 29.7 pg (25.9-34.0); Mean Corpuscular Volume 90.7 fL (80.0-94.0); Monocytes Absolute Auto 1.5 10^3/uL (0.3-0.8); Neutrophils Absolute Auto 10.4 10^3/uL (1.4-6.5); Neutrophils Percent Auto 69.1 % (43.0-75.0); Platelet Count 295 10^3/uL (150-450); Red Blood Count 2.46 10^6/uL (4.70-6.10); Red Cell Distribution Width 14.6 % (11.0-15.0); White Blood Count 15.1 10^3/uL (4.0-11.0)
[2023-10-31 06:16] LABS: Hematocrit 22.3 % (42.0-54.0)
[2023-10-31] MEDS: GABAPENTIN 300 MG CAPSULE PO ×3 (06:32→21:29)
[2023-10-31 06:35] LABS: Alanine Aminotransferase 16 U/L (16-63); Albumin Globulin Ratio 0.6; Albumin Level 2.2 g/dL (3.4-5.0); Alkaline Phosphatase 108 U/L (46-116); Anion Gap 10.2; Aspartate Amino Transferase 13 U/L (15-37); Bilirubin Total 0.3 mg/dL (0.2-1.0); Calcium 7.7 mg/dL (8.5-10.1); Carbon Dioxide 27.9 mmol/L (21.0-32.0); Chloride 107 mmol/L (98-107); Estimated GFR (African America 45 (>=60); Estimated GFR (Non-African Ame 37 (>=60); Globulin 3.8 g/dL; Glucose 139 mg/dL (74-106); Potassium 4.1 mmol/L (3.5-5.1); Sodium 141 mmol/L (136-145)
[2023-10-31 07:58] LABS: Percent Iron Saturation 20.8 %
[2023-10-31] MEDS: AMLODIPINE BESYLATE 5 MG TABLET 10 MG PO (08:51)
[2023-10-31] MEDS: QUETIAPINE FUMARATE 25 MG TABLET PO ×2 (08:51→21:29)
[2023-10-31] MEDS: FAMOTIDINE 20 MG TABLET PO (08:52)
[2023-10-31] MEDS: CLOPIDOGREL BISULFATE 75 MG TABLET PO (08:52)
[2023-10-31] MEDS: FLUTICASONE PROPIONATE 50 MCG NASAL SPRAY 1 SPRAY NS (08:52)
[2023-10-31] MEDS: METOPROLOL SUCCINATE 50 MG TAB.ER.24H PO (08:54)
[2023-10-31] MEDS: GUAIFENESIN 600 MG TAB.ER.12H PO ×2 (08:54→22:16)
[2023-10-31] MEDS: SPIRONOLACTONE 25 MG TABLET 50 MG PO (08:54)
[2023-10-31] MEDS: SERTRALINE HCL 50 MG TABLET PO (08:54)
[2023-10-31] MEDS: DULOXETINE HCL 60 MG CAPSULE.DR PO (08:55)
[2023-10-31] MEDS: HEPARIN SODIUM (PORCINE) 5,000 UNIT/ML VIAL 5000 UNIT SUBQ (08:55)
--- NOTE | 2023-10-31 10:42 | P.HP_ITS ---
HPI H&P: HPI History of Present Illness Chief complaint: SOB CHF Narrative: 72-year-old male presented to ER last evening with worsening shortness of breath, cough and lower extremity edema was ongoing for 1 week. He is on Lasix as outpatient that was switched to Bumex by his PCP for volume overload but his symptoms continue to worsen and progress so he came to ED last evening. Patient's workup in ED showed evidence of acute on chronic diastolic heart failure and he was admitted overnight for IV diuresis. It was noted by patient's family that he was hypoxic at home but his pulse ox was above 90% in ER. Patient is currently laying in bed, comfortable. He is not short of breath at rest but feels dyspnea on minimal exertion and during conversation. He still has significant lower extremity edema and evidence of volume overload on exam. He denies fever, chills, nausea, vomiting, constipation, diarrhea, abdominal pain, dysuria. He had prolonged hospital admission about a month ago at [facility] where he was intubated for respiratory failure for pneumonia. He was a cutely sick and required hemodialysis because of acute renal failure. His kidneys have recovered and he has not required dialysis for a month now. Patient was also noted to have anemia. His hemoglobin according to his about a week ago was 8.5. He denies rectal bleeding/melena/hematemesis. He has not had any GI workup recently cannot remember the last time he had an upper GI endoscopy or colonoscopy. He is on Plavix for peripheral vascular disease for which he required balloon angioplasty 8 to 9 months ago. Opioid HPI Opioid Management Most Recent Opioid Data: Last Pain Assessment 10/31/23 10:00 Last ORT Total Score 7 10/31/23 04:27 Last ORT Risk Category Moderate Risk 10/31/23 04:27 Review of Systems ROS Status of ROS 10 or more systems reviewed and unremark able except as noted in history and below [facility] Medical History (Updated 10/31/23 @ 11:06 by Shaikh Andrew MD) PVD (peripheral vascular disease) ?I73.9 - Peripheral vascular disease, unspecified (ICD-10) Type 2 diabetes mellitus ?E11.9 - Type 2 diabetes mellitus without complications (ICD-10) CKD (chronic kidney disease) stage 4, GFR 15-29 ml/min ?N18.4 - Chronic kidney disease, stage 4 (severe) (ICD-10) Peripheral vascular disease due to secondary diabetes ?E13.51 - Other specified diabetes mellitus with diabetic peripheral angiopathy without gangrene (ICD-10) Type 2 diabetes mellitus with diabetic polyneuropathy ?E11.42 - Type 2 diabetes mellitus with diabetic polyneuropathy (ICD-10) Hypertension ?I10 - Essential (primary) hypertension (ICD-10) Type 2 diabetes mellitus with hyperglycemia ?E11.65 - Type 2 diabetes mellitus with hyperglycemia (ICD-10) Ulcer of left foot due to type 2 diabetes mellitus ?E11.621 - Type 2 diabetes mellitus with foot ulcer (ICD-10) ?L97.529 - Non-pressure chronic ulcer of other part of left foot with unspecified severity (ICD-10) Osteomyelitis of left foot ?M86.9 - Osteomyelitis, unspecified (ICD-10) SONYA (acute kidney injury) ?N17.9 - Acute kidney failure, unspecified (ICD-10) Speech abnormality ?R47.9 - Unspecified speech disturbances (ICD-10) Pulmonary edema with congestive heart failure ?I50.1 - Left ventricular failure, unspecified (ICD-10) Elevated troponin I level ?R79.89 - Other specified abnormal findings of blood chemistry (ICD-10) Chronic renal disease ?N18.9 - Chronic kidney disease, unspecified (ICD-10) Diabetes ?E11.9 - Type 2 diabetes mellitus without complications (ICD-10) Cataracts, both eyes ?H26.9 - Unspecified cataract (ICD-10) Gangrene ?I96 - Gangrene, not elsewhere classified (ICD-10) Amputation of toe of left foot ?S98.132A - Complete traumatic amputation of one left lesser toe, initial encounter (ICD-10) Atrial fibrillation ?I48.91 - Unspecified atrial fibrillation (ICD-10) History of mechanical ventilation ?Z92.89 - Personal history of other medical treatment (ICD-10) Congestive heart failure (CHF) ?I50.9 - Heart failure, unspecified (ICD-10) Dialysis patient ?Z99.2 - Dependence on renal dialysis (ICD-10) Dyslipidemia ?E78.5 - Hyperlipidemia, unspecified (ICD-10) Urticaria ?L50.9 - Urticaria, unspecified (ICD-10) Surgical History (Updated 10/31/23 @ 04:19 by Winnie Lynn) History of tonsillectomy ?Z90.89 - Acquired absence of other organs (ICD-10) History of hernia repair ?Z98.890 - Other specified postprocedural states (ICD-10) ?Z87.19 - Personal history of other diseases of the digestive system (ICD-10) Hx of cholecystectomy ?Z90.49 - Acquired absence of other specified parts of digestive tract (ICD- 10) Family History (Updated 10/31/23 @ 04:20 by Winnie Lynn) Brother Family history of cancer Mother Family history of diabetes mellitus Social History (Updated 10/31/23 @ 04:22 by Winnie Lynn) Within the past year, how often did you have a drink containing alcohol: never Within the past year, how often did you have six or more drinks on one occasion: never Score interpretation: A score less than 4 is consistent with normal alcohol consumption. Smoking status: Former smoker Non-prescribed substance use: denies use Non-prescribed substance use details: Previous Crack addict. Clean since 1988 Previous occupational history: Retired Highest level of school completed/degree received: high school graduate Are you now , , , , never or living with a partner: In a typical week, how many times do you talk on the telephone with family, friends, or neighbors: 3 or more times per week How often do you get together with friends or relatives: 3 or more times per week Little interest or pleasure in doing things: not at all Feeling down, depressed, or hopeless: not at all Feel stressed/tense/nervous/anxious/difficulty sleeping: not at all Meds Home Medications and Allergies Home Medications ?Medication ?Instructions ?Recorded ?Confirmed ?Type atorvastatin 40 mg tablet 40 mg PO QPM 03/06/23 10/31/23 History clopidogrel 75 mg tablet 75 mg PO DAILY 03/06/23 10/31/23 History duloxetine 60 mg capsule,delayed 60 mg PO DAILY 03/06/23 07/31/23 History release metoprolol succinate 50 mg 50 mg PO DAILY 03/06/23 10/31/23 History tablet,extended release 24 hr nifedipine 30 mg tablet,extended 30 mg PO DAILY 03/06/23 10/31/23 History release 24 hr amlodipine 10 mg tablet 10 mg PO .once daily 07/31/23 10/31/23 History furosemide 80 mg tablet mg 07/31/23 History hydralazine 50 mg tablet 50 mg PO BID 07/31/23 10/31/23 History bumetanide 2 mg tablet 2 mg PO .once daily 10/31/23 10/31/23 History famotidine 20 mg tablet 20 mg PO BID 10/31/23 10/31/23 History fluticasone propionate 50 1 spray intranasal .once daily 10/31/23 10/31/23 History mcg/actuation nasal spray,suspension gabapentin 300 mg capsule 300 mg PO TID 10/31/23 10/31/23 History insulin glargine 100 unit/mL (3 20 unit subcut BID 10/31/23 10/31/23 History mL) subcutaneous pen (Lantus Solostar U-100 Insulin) mel[facility] 3 mg tablet [facility] 10/31/23 History metoprolol tartrate 50 mg tablet 50 mg PO BID 10/31/23 10/31/23 History quetiapine 25 mg tablet 25 mg PO BID 10/31/23 10/31/23 History sertraline 50 mg tablet 50 mg PO .once daily 10/31/23 10/31/23 History sertraline 50 mg tablet (Zoloft) 25 mg PO DAILY 10/31/23 10/31/23 History sevelamer carbonate 800 mg tablet 800 mg PO TID 10/31/23 10/31/23 History spironolactone 100 mg tablet 60 mg PO DAILY 10/31/23 10/31/23 History (Aldactone) trazodone 50 mg tablet 50 [facility]/31/23 10/31/23 History Allergies Allergy/AdvReac Type Severity Reaction Status Date / Time cefepime Allergy Severe Hives Verified 10/30/23 23:51 lisinopril Allergy Severe Verified 10/30/23 23:51 metformin Allergy Severe Verified 10/30/23 23:51 Exam Constitutional Vital Signs, click to edit/add: Last Vital Signs Temp 98.8 F 10/31/23 04:29 Pulse 84 10/31/23 10:00 Resp 20 10/31/23 04:33 BP 139/72 10/31/23 04:51 Pulse Ox 94 L 10/31/23 04:33 O2 Del Method Room Air 10/31/23 04:33 O2 Flow Rate 2 10/31/23 03:50 Documenting provider has reviewed patient's vital signs: yes Common normals: oriented x3 General appearance: cooperative and comfortable HENMT Common normals: normocephalic and head/scalp atraumatic Respiratory Common normals: normal respiratory effort and no use of accessory muscles Auscultation: crackles and diminished lung sounds Other: conversational dyspnea Cardio Common normals: no JVD, regular rate, regular rhythm, S1 normal heart sound and S2 normal heart sound GI Common normals: Normal to inspection, nondistended, normoactive bowel sounds present, soft to palpation and non-tender Extremity General: edema (+2) Neuro Common normals: oriented x3, CN's II-XII intact bilaterally, moves all extremities, no focal motor deficits and no sensory deficits noted Psych Common normals: mental status grossly normal, thought process normal, denies homicidal ideation and denies suicidal ideation Results Labs Labs: Short CBC 10/30/23 10/31/23 Range/Units 23:59 05:41 WBC 15.4 H 15.1 H (4.0-11.0) 10^3/uL Hgb 7.5 L 7.3 L (14.0-18.0) g/dL Hct 22.9 L* 22.3 L* (42.0-54.0) % Plt Count 326 295 (150-450) 10^3/uL BMP 10/30/23 10/31/23 23:59 05:41 Sodium 140 141 Potassium 4.1 4.1 Chloride 107 107 Carbon Dioxide 28.2 27.9 BUN 20.0 H 20.0 H Creatinine 1.84 H 1.82 H Glucose 137 H 139 H Calcium 8.0 L 7.7 L Liver Function 10/31/23 Range/Units 05:41 Total Bilirubin 0.3 (0.2-1.0) mg/dL AST 13 L (15-37) U/L ALT 16 (16-63) U/L Alkaline Phosphatase 108 (46-116) U/L Albumin 2.2 L (3.4-5.0) g/dL Assessment and Plan Assessment and Plan (1) Acute on chronic diastolic heart failure: Assessment and Plan: Acute on chronic diastolic heart failure -on IV Lasix 40 twice daily. Monitor intake/output, daily weights. Echocardiogram ordered to assess cardiac structure. (2) Anemia: Assessment and Plan: Hemoglobin 8.5 about a week ago. Iron profile consistent with anemia of CKD/chronic disease. Old Plavix and DVT prophylaxis for now. Started on IV Protonix 40 twice daily. Monitor hemoglobin. No evidence of overt GI bleed. If stable, will defer workup for outpatient given acute on chronic congestive heart failure Qualifiers: Anemia type: unspecified type Qualified Code(s): D64.9 - Anemia, unspecified (3) Hypertension: Assessment and Plan: Blood pressure is stable. Continue with home medications. Qualifiers: Hypertension type: primary hypertension Qualified Code(s): I10 - Essential (primary) hypertension (4) CKD (chronic kidney disease) stage 4, GFR 15-29 ml/min: Assessment and Plan: Previously on hemodialysis because of acute kidney injury. He has not undergone dialysis for a month now and according to his his baseline creatinine is 1.8. Monitor urine output while on diuresis. Monitor serum creatinine closely as high risk of acute kidney injury. (5) Type 2 diabetes mellitus: Assessment and Plan: Continue with basal bolus insulin. Monitor blood glucose closely. 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 Plavix as suspected GI bleed. Monitor for now (7) Dyslipidemia: Assessment and Plan: Continue with Lipitor. Plan Patient admitted as inpatient for acute on chronic diastolic heart failure and acute anemia likely contributing to his symptoms. He had prolonged hospital admission about a month ago during which she required mechanical ventilation and hemodialysis for pneumonia and acute renal failure. He needs close monitoring, IV diuresis and is at high risk of acute renal failure/poor outcome/prognosis and relapse if discharged prematurely and anticipated to require inpatient treatment and monitoring for at least 2 midnights for his acute illness.
[2023-10-31 11:23] LABS: Hemoglobin 7.3 g/dL (14.0-18.0)
[2023-10-31 11:35] LABS: Hematocrit 22.4 % (42.0-54.0)
--- NOTE | 2023-10-31 11:51 | CM.NOTE ---
Rounds made with Dr. Morales. No plan for discharge.
[2023-10-31 12:04] LABS: Glucometer 215 mg/dL (74-106)
[2023-10-31] MEDS: BENZONATATE 100 MG CAPSULE 200 MG PO ×2 (12:09→21:28)
[2023-10-31] MEDS: PANTOPRAZOLE SODIUM 40 MG VIAL IV ×2 (12:09→22:16)
[2023-10-31] MEDS: SEVELAMER CARBONATE 800 MG TABLET PO ×2 (12:10→17:05)
[2023-10-31] MEDS: INSULIN ASPART 300 UNIT/3 ML PEN SUBQ (12:10)
--- NOTE | 2023-10-31 12:22 | SWNOTE1 ---
SW met with pt to discuss dc needs. Pt lives at home with his . Pt uses a walker with wheels at home and has a cane as well. Pt does not wear home oxygen, has oxygen on now. Pt does have [facility] coming in, PT/OT and skilled nurse. Pt's plan is to return home with HH at this time. MILES sent updates to [facility]. Updates included face sheet, physician note, and PT note.
--- NOTE | 2023-10-31 14:04 | SWNOTE1 ---
SW stopped back in to speak with pt. Pt's sister, brother, and were in room. Pt's plan is to discharge home with [facility] when medically stable. Important Message from Medicare reviewed and discussed with patient. Pt. verbalized understanding and signed the form. Original given to patient and copy placed in patient?s chart.
--- NOTE | 2023-10-31 14:18 | SWNOTE1 ---
SW put together packet and took to ICU for nursing to send dc information to [facility] if pt is discharged over the weekend.
[2023-10-31 15:53] LABS: Occult Blood Negative
--- NOTE | 2023-10-31 16:00 | CONS_ITS ---
CONSULTATION CONSULTATION DATE: ??10/31/2023 CONSULTING PHYSICIAN:? Shaikh Andrew M.D. CHIEF COMPLAINT:? Shortness of breath, CHF. HISTORY OF PRESENT ILLNESS:? Patient is a 72-year-old male with a past medical history including hypertension, hyperlipidemia, type 2 diabetes mellitus, CKD, PVD, who presents to the emergency department with complaints of shortness of breath.? Per patient and patient?s family, patient has hypoxia at home.? In the emergency department, patient was noted to be oxygenating an adequate level (above 90%).? Again, patient complained of shortness of breath, some lower extremity, along with orthopnea.? He denies any fevers, chills, nausea, vomiting or chest pain.? Per chart, patient was hospitalized approximately a month ago, with a prolonged hospitalization course due to respiratory failure secondary to pneumonia.? He also required dialysis due to renal failure.? Reportedly, his symptoms have improved, and patient has been of dialysis.? Of note, patient?s hemoglobin is noted to be 7.3, down from his recent hemoglobin of 8.5.? He denies any signs/symptoms of bleeding. Patient was interviewed and examined at bedside.? He reports that he feels improved from the time of admission; however, he continues to complain of some shortness of breath, lower extremity edema.? He reports that his orthopnea has improved.? He adamantly denies any chest pain, chest pressure, chest tightness.? 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 He denies any additional complaints or concerns at the present time.? REVIEW OF SYSTEMS:? Ten point ROS was performed and was negative, unless otherwise specified in HPI. PAST MEDICAL HISTORY: 1.? Type 2 diabetes mellitus. 2.? CKD. 3.? PVD. 4.? Hypertension. 5.? Hyperlipidemia. SURGICAL HISTORY: 1.? Hernia repair. 2.? Cholecystectomy. 3.? Tonsillectomy. FAMILY HISTORY:? Noncontributory. SOCIAL HISTORY:? Noncontributory. HOME MEDICATIONS: 1.? Pravastatin 40 mg daily. 2.? Clopidogrel 75 mg daily. 3.? Toprol 50 mg daily. 4.? Nifedipine 30 mg daily. 5.? Amlodipine 10 mg daily. 6.? Lasix 80 mg daily. 7.? Hydralazine 50 mg daily. 8.? Spironolactone (unknown dosage). ALLERGIES: 1.? Cefepime. 2.? Lisinopril. 3.? Metformin. PHYSICAL EXAMINATION: Vitals:? Blood pressure 176/82, pulse 72, respiratory rate 20, O2 sat 94, oxygen delivery nasal cannula 2 liters per minute. HEENT: ?Normocephalic, atraumatic.? PERRLA.? Respiratory:? Patient has crackles in bilateral lung bases.? Normal respiratory effort. Cardiovascular:? S1, S2 audible, RRR, no rubs, no gallops or murmurs. GI:? Non- tender, non-distended, normal active bowel sounds. Extremities:? Patient has 2+ bilateral lower extremity edema.? Neurologic:? Alert and oriented x3.? No gross neurological deficits. Psychiatric:? Patient was cooperative.? RESULTS, PERTINENT: WBC 15.1, hemoglobin 7.3, Pro BNP 2546. EKG:? Normal sinus rhythm, no ST changes. ASSESSMENT/PLAN: 1.? Acute on chronic decompensated heart failure with preserved ejection fraction. Patient has had adequate urine output on IV Lasix 40 mg b.i.d. Continue current diuretic dose. Strict I?s/O?s, daily standing weights. Would recommend obtaining echocardiogram to assess his LVEF, regional wall motion, valvular function. Would recommend correcting anemia. 2.? Anemia ? Patient with hemoglobin of 7.3. This is obviously contributing to shortness of breath, decompensation of heart failure. Would recommend working up anemia, correcting anemia. 3.? Hypertensive urgency. Patient?s blood pressure is 176/82. Would recommend titrating blood pressure medications for better blood pressure control. Patient will require close cardiac follow up.? Consider outpatient stress test given mildly elevated troponin during recent hospitalization and new reports of ischemic evaluation. TEE
[2023-10-31 17:01] LABS: Glucometer 110 mg/dL (74-106)
[2023-10-31] MEDS: TRAZODONE HCL 50 MG TABLET PO (21:28)
[2023-10-31] MEDS: ATORVASTATIN CALCIUM 40 MG TABLET PO (21:29)
[2023-10-31 21:37] LABS: Glucometer 180 mg/dL (74-106)
[2023-11-01] VITALS (66 sets, daily range): BP systolic 141–179; BP diastolic 74–84; PULSE 66–91; TEMP 36.6–37.1; O2SAT 89–96
[2023-11-01 04:08] LABS: Transferrin 148 mg/dL (177-329)
[2023-11-01 05:43] LABS: Basophils Absolute Auto 0.1 10^3/uL (0.0-0.1); Basophils Percent Auto 0.7 % (0.2-2.0); Eosinophils Absolute Auto 0.3 10^3/uL (0.0-0.7); Eosinophils Percent Auto 2.1 % (0.9-7.0); Hemoglobin 7.3 g/dL (14.0-18.0); Immature Granulocytes Abs Auto 0.08 10^3/uL (0.00-0.03); Immature Granulocytes Pct Auto 0.6 % (0.0-0.5); Lymphocytes Absolute Auto 2.8 10^3/uL (1.2-3.8); Lymphocytes Percent Auto 20.2 % (20.5-60.0); Mean Corpuscular HGB Conc 31.7 g/dL (29.9-35.2); Mean Corpuscular Hemoglobin 28.9 pg (25.9-34.0); Mean Corpuscular Volume 90.9 fL (80.0-94.0); Mean Platelet Volume 10.4 fL (9.5-13.5); Monocytes Absolute Auto 1.3 10^3/uL (0.3-0.8); Monocytes Percent Auto 9.5 % (1.7-12.0); Neutrophils Absolute Auto 9.2 10^3/uL (1.4-6.5); Neutrophils Percent Auto 66.9 % (43.0-75.0); Platelet Count 312 10^3/uL (150-450); Red Blood Count 2.53 10^6/uL (4.70-6.10); Red Cell Distribution Width 14.6 % (11.0-15.0); White Blood Count 13.7 10^3/uL (4.0-11.0)
[2023-11-01 06:14] LABS: Alanine Aminotransferase 11 U/L (16-63); Albumin Globulin Ratio 0.6; Albumin Level 2.1 g/dL (3.4-5.0); Alkaline Phosphatase 87 U/L (46-116); Anion Gap 9.4; Aspartate Amino Transferase 12 U/L (15-37); BUN Creatinine Ratio 11.8; Bilirubin Total 0.4 mg/dL (0.2-1.0); Calcium 7.8 mg/dL (8.5-10.1); Carbon Dioxide 28.4 mmol/L (21.0-32.0); Chloride 105 mmol/L (98-107); Estimated GFR (African America 46 (>=60); Estimated GFR (Non-African Ame 38 (>=60); Globulin 3.8 g/dL; Glucose 124 mg/dL (74-106); Potassium 3.8 mmol/L (3.5-5.1); Sodium 139 mmol/L (136-145); Total Protein 5.9 g/dL (6.4-8.2)
[2023-11-01] MEDS: GABAPENTIN 300 MG CAPSULE PO ×3 (06:16→22:26)
[2023-11-01] MEDS: FUROSEMIDE 40 MG/4 ML VIAL IVP (06:16)
[2023-11-01] MEDS: AMLODIPINE BESYLATE 5 MG TABLET 10 MG PO (08:16)
[2023-11-01] MEDS: QUETIAPINE FUMARATE 25 MG TABLET PO ×2 (08:17→22:25)
[2023-11-01] MEDS: SPIRONOLACTONE 25 MG TABLET 50 MG PO (08:17)
[2023-11-01] MEDS: GUAIFENESIN 600 MG TAB.ER.12H PO (08:17)
[2023-11-01] MEDS: SERTRALINE HCL 50 MG TABLET PO (08:17)
[2023-11-01] MEDS: SEVELAMER CARBONATE 800 MG TABLET PO ×2 (08:17→11:45)
[2023-11-01] MEDS: METOPROLOL SUCCINATE 50 MG TAB.ER.24H PO (08:17)
[2023-11-01] MEDS: DULOXETINE HCL 60 MG CAPSULE.DR PO (08:17)
--- NOTE | 2023-11-01 10:21 | PT.DAILY ---
Physical Therapy Daily Note PT Daily Note/Assess Start: 10/31/23 11:28 Freq: Status: Active Protocol: Document 11/01/23 10:00 SHANE (Rec: 11/01/23 10:20 SHANE [id number]) Physical Therapy Daily Note/Assessment Time In/Time Out Time In 10:00 Time Out 10:11 Subjective Subjective Patient asleep upon entry. Difficult to wake up at first, but then wakes up and agrees to walk. Therapeutic Activity Time Therapeutic Activity Minutes (minutes) 11 Therapeutic Activity Units 1 Therapeutic Activity Treatment Bed Mobility Ability Modified Independent Chair Transfer Ability Standby Assistance Therapeutic Activity Comments Supine to sit and sit to supine were both modified independent using rails on bed . Sit to stand at RW SBA. RW was adjusted to correct height . Gait 120' with RW SBA. Mild LOB x2 to R but was able to self correct without assistance. Patient did decline to sit in chair at end of session. Encouraged patient to sit up in chair at lunch time and for all meals. Patient did agree to this. Total Physical Therapy Time Total Therapy Minutes 11 Total Physical Therapy Units 1 Summary Daily Note Summary Improved distance with gait. Patient required SBA with mild LOBx2 but was able to self correct with use of RW. Overall improved strength and endurance is noted today. Patient was supine in bed with call light in reach and all needs met post RX. SPO2 was 91 percent prior to ambulation and 93 percent post ambulation .
[2023-11-01] MEDS: INSULIN ASPART 300 UNIT/3 ML PEN SUBQ (11:44)
[2023-11-01] MEDS: PANTOPRAZOLE SODIUM 40 MG VIAL IV ×2 (11:44→22:27)
[2023-11-01] MEDS: BENZONATATE 100 MG CAPSULE 200 MG PO (11:45)
[2023-11-01 11:50] LABS: Glucometer 219 mg/dL (74-106)
--- NOTE | 2023-11-01 11:56 | PM.PN ---
Progress Note: Subjective Subjective Interval history: Patient feels better this am. Less SOB and able to lay flat without as much SOB. No cough. Edema improved but persists. Vitals stable. Maintaining normal SpO2 on room air. Decreased appetite but no emesis or diarrhea. No chest pain or tightness. Exam Constitutional Vital Signs, click to edit/add: Last Vital Signs Temp 98.6 F 11/01/23 11:52 Pulse 73 11/01/23 11:52 Resp 16 11/01/23 11:52 BP 141/74 11/01/23 11:52 Pulse Ox 94 L 11/01/23 11:52 O2 Del Method Room Air 11/01/23 10:15 O2 Flow Rate 2 11/01/23 07:56 Documenting provider has reviewed patient's vital signs: yes Common normals: no apparent distress, oriented x3 and alert HENMT Common normals: normocephalic Eye Common normals: PERRL and EOMs intact bilaterally Respiratory Common normals: clear to auscultation bilaterally Cardio Common normals: regular rate, regular rhythm, no gallops, no murmurs and no rub GI Common normals: Normal to inspection, nondistended, normoactive bowel sounds present and non-tender Extremity General: edema (2+ bipedal pitting edema) Progress Note: Objective Labs Labs: Short CBC 11/01/23 Range/Units 03:48 WBC 13.7 H (4.0-11.0) 10^3/uL Hgb 7.3 L (14.0-18.0) g/dL Hct 23.0 L* (42.0-54.0) % Plt Count 312 (150-450) 10^3/uL BMP 11/01/23 03:48 Sodium 139 Potassium 3.8 Chloride 105 Carbon Dioxide 28.4 BUN 21.0 H Creatinine 1.78 H Glucose 124 H Calcium 7.8 L Liver Function 11/01/23 Range/Units 03:48 Total Bilirubin 0.4 (0.2-1.0) mg/dL AST 12 L (15-37) U/L ALT 11 L (16-63) U/L Alkaline Phosphatase 87 (46-116) U/L Albumin 2.1 L (3.4-5.0) g/dL Progress Note: A&P Assessment and Plan (1) Acute on chronic diastolic heart failure: (2) Anemia in stage 3b chronic kidney disease: (3) Type 2 diabetes mellitus with hyperglycemia: (4) Hypertension: Qualifiers: Hypertension type: primary hypertension Qualified Code(s): I10 - Essential (primary) hypertension (5) Type 2 diabetes mellitus with diabetic polyneuropathy: (6) PVD (peripheral vascular disease): (7) Peripheral vascular disease due to secondary diabetes: Plan Edema slightly improved but still persists. Not responding well to IV lasix and stop. Start bumex drip. Anemia due to CKD and stable. Monitor. Vitals stable. Monitor BS. Increase ambulation. If continues to improve possible home in am.
[2023-11-01] MEDS: BUMETANIDE 10 MG in 0.9 % SODIUM CHLORIDE 160 ML 20 MG IV (12:30)
[2023-11-01 16:04] LABS: Glucometer 92 mg/dL (74-106)
[2023-11-01 16:40] LABS: Basophils Absolute Auto 0.1 10^3/uL (0.0-0.1); Basophils Percent Auto 0.8 % (0.2-2.0); Eosinophils Absolute Auto 0.2 10^3/uL (0.0-0.7); Eosinophils Percent Auto 1.5 % (0.9-7.0); Hemoglobin 7.6 g/dL (14.0-18.0); Immature Granulocytes Abs Auto 0.06 10^3/uL (0.00-0.03); Immature Granulocytes Pct Auto 0.5 % (0.0-0.5); Lymphocytes Absolute Auto 2.3 10^3/uL (1.2-3.8); Lymphocytes Percent Auto 18.4 % (20.5-60.0); Mean Corpuscular HGB Conc 32.6 g/dL (29.9-35.2); Mean Corpuscular Hemoglobin 29.1 pg (25.9-34.0); Mean Corpuscular Volume 89.3 fL (80.0-94.0); Mean Platelet Volume 9.5 fL (9.5-13.5); Monocytes Absolute Auto 1.3 10^3/uL (0.3-0.8); Monocytes Percent Auto 10.3 % (1.7-12.0); Neutrophils Absolute Auto 8.7 10^3/uL (1.4-6.5); Neutrophils Percent Auto 68.5 % (43.0-75.0); Platelet Count 318 10^3/uL (150-450); Red Blood Count 2.61 10^6/uL (4.70-6.10); Red Cell Distribution Width 14.1 % (11.0-15.0); White Blood Count 12.7 10^3/uL (4.0-11.0)
[2023-11-01 16:48] LABS: Anion Gap 9.2; BUN Creatinine Ratio 12.1; Carbon Dioxide 29.4 mmol/L (21.0-32.0); Chloride 104 mmol/L (98-107); Estimated GFR (African America 47 (>=60); Estimated GFR (Non-African Ame 39 (>=60); Glucose 88 mg/dL (74-106); Potassium 3.6 mmol/L (3.5-5.1); Sodium 139 mmol/L (136-145)
[2023-11-01 16:50] LABS: Hematocrit 23.3 % (42.0-54.0)
[2023-11-01 20:59] LABS: Glucometer 167 mg/dL (74-106)
[2023-11-01] MEDS: ATORVASTATIN CALCIUM 40 MG TABLET PO (22:26)
[2023-11-01] MEDS: TRAZODONE HCL 50 MG TABLET PO (22:26)
[2023-11-02] VITALS (10 sets, daily range): BP systolic 161–177; BP diastolic 79–84; PULSE 76–87; TEMP 36.7–37.2; O2SAT 90–94
[2023-11-02 05:46] LABS: Basophils Absolute Auto 0.1 10^3/uL (0.0-0.1); Basophils Percent Auto 0.6 % (0.2-2.0); Eosinophils Absolute Auto 0.2 10^3/uL (0.0-0.7); Eosinophils Percent Auto 1.6 % (0.9-7.0); Hemoglobin 7.8 g/dL (14.0-18.0); Immature Granulocytes Abs Auto 0.07 10^3/uL (0.00-0.03); Immature Granulocytes Pct Auto 0.5 % (0.0-0.5); Lymphocytes Absolute Auto 2.7 10^3/uL (1.2-3.8); Lymphocytes Percent Auto 20.3 % (20.5-60.0); Mean Corpuscular HGB Conc 32.6 g/dL (29.9-35.2); Mean Corpuscular Hemoglobin 28.9 pg (25.9-34.0); Mean Corpuscular Volume 88.5 fL (80.0-94.0); Monocytes Absolute Auto 1.2 10^3/uL (0.3-0.8); Monocytes Percent Auto 8.9 % (1.7-12.0); Neutrophils Absolute Auto 9.1 10^3/uL (1.4-6.5); Neutrophils Percent Auto 68.1 % (43.0-75.0); Platelet Count 367 10^3/uL (150-450); Red Cell Distribution Width 14.4 % (11.0-15.0); White Blood Count 13.3 10^3/uL (4.0-11.0)
[2023-11-02 05:49] LABS: Hematocrit 23.9 % (42.0-54.0)
--- NOTE | 2023-11-02 05:57 | PC.NURSE ---
Dr. Bryant notified of critical HCT level.
[2023-11-02] MEDS: GABAPENTIN 300 MG CAPSULE PO (06:03)
[2023-11-02 06:17] LABS: Alanine Aminotransferase 11 U/L (16-63); Albumin Globulin Ratio 0.6; Albumin Level 2.3 g/dL (3.4-5.0); Alkaline Phosphatase 86 U/L (46-116); Anion Gap 9.9; Aspartate Amino Transferase 14 U/L (15-37); BUN Creatinine Ratio 10.6; Bilirubin Total 0.5 mg/dL (0.2-1.0); Calcium 8.4 mg/dL (8.5-10.1); Carbon Dioxide 29.4 mmol/L (21.0-32.0); Chloride 103 mmol/L (98-107); Estimated GFR (African America 46 (>=60); Estimated GFR (Non-African Ame 38 (>=60); Globulin 3.8 g/dL; Glucose 125 mg/dL (74-106); Potassium 3.3 mmol/L (3.5-5.1); Sodium 139 mmol/L (136-145); Total Protein 6.1 g/dL (6.4-8.2)
--- NOTE | 2023-11-02 06:25 | PC.NURSE ---
Dr. Bryant notified of critical BNP.
[2023-11-02] MEDS: DULOXETINE HCL 60 MG CAPSULE.DR PO (08:22)
[2023-11-02] MEDS: METOPROLOL SUCCINATE 50 MG TAB.ER.24H PO (08:22)
[2023-11-02] MEDS: SEVELAMER CARBONATE 800 MG TABLET PO ×2 (08:22→12:33)
[2023-11-02] MEDS: SERTRALINE HCL 50 MG TABLET PO (08:22)
[2023-11-02] MEDS: QUETIAPINE FUMARATE 25 MG TABLET PO (08:22)
[2023-11-02] MEDS: AMLODIPINE BESYLATE 5 MG TABLET 10 MG PO (08:22)
[2023-11-02] MEDS: SPIRONOLACTONE 25 MG TABLET 50 MG PO (08:22)
[2023-11-02] MEDS: GUAIFENESIN 600 MG TAB.ER.12H PO (08:22)
--- NOTE | 2023-11-02 11:06 | P.DS_ITS ---
DS: Providers Provider Date of admission: 10/31/23 03:56 Primary care physician: Tejas Bryant MD Consults: 10/31/23 03:47 Consult to Cardiology Routine Reason for consultation: chf Exacerb Has provider been notified: No 10/31/23 07:29 Occupational Therapy Eval and Treat Routine Reason for consultation: Ambulatory dysfunction/weakness Physical Therapy Eval and Treat Routine Reason for consultation: Ambulatory dysfunction/weakness DS: Diagnosis Discharge Diagnosis (1) Acute on chronic diastolic heart failure: (2) Anemia in stage 3b chronic kidney disease: (3) Type 2 diabetes mellitus with hyperglycemia: (4) Hypertension: Qualifiers: Hypertension type: primary hypertension Qualified Code(s): I10 - Essential (primary) hypertension (5) Type 2 diabetes mellitus with diabetic polyneuropathy: (6) PVD (peripheral vascular disease): (7) Peripheral vascular disease due to secondary diabetes: DS: Summary Hospital Course Hospital Course: Reason for admission: See ER note and H&P for details. 72 y/o male to ER with SOB. C/o increased edema and SOB over past few weeks. Seen in office 10/29 and lasix changed to bumex with addition of aldactone. Continued to have SOB and edema. reported SpO2 decreased into 70s and to ER. WBC 15.4. Hgb 7.5 and labs show anemia chronic disease. BNP elevated and fluid overload on chest x- ray. Admitted for treatment. Hospital course: Started IV lasix and held plavix. Recently hospitalized last month and had normal EF. Renal function stable. Initially with hypoxia and on oxygen but able to wean to room air. Edema slightly improved but persisted and started bumex drip. Diureses well. Edema much improved and no SOB. Ambulating well. Nursing noticed stops breathing during sleep and would desaturate but returned to normal once woke patient up. Never had sleep study in past. Discharged home in stable condition. Resume home medication as directed. Will arrange for outpatient sleep study. Time Spent with Patient Time attestation: Total time spent providing and/or coordinating discharge services: Time spent: greater than 30 minutes Exam Constitutional Vital Signs, click to edit/add: Last Vital Signs Temp 98.9 F 11/02/23 04:15 Pulse 81 11/02/23 10:00 Resp 18 11/02/23 05:00 BP 177/84 H 11/02/23 04:15 Pulse Ox 90 L 11/02/23 04:15 O2 Del Method Room Air 11/02/23 04:15 O2 Flow Rate 2 11/01/23 07:56 Documenting provider has reviewed patient's vital signs: yes Common normals: no apparent distress, oriented x3 and alert HENMT Common normals: normocephalic Eye Common normals: PERRL and EOMs intact bilaterally Respiratory Common normals: normal respiratory effort and clear to auscultation bilaterally Cardio Common normals: regular rate, regular rhythm, no gallops, no murmurs and no rub GI Common normals: Normal to inspection, nondistended, normoactive bowel sounds present and non-tender Extremity Common normals: no pedal edema DS: Data Data Completed and Pending Labs on day of discharge: Labs from last 24 hours 11/02/23 11/01/23 11/01/23 04:03 20:58 16:32 WBC 13.3 H 12.7 H RBC 2.70 L 2.61 L Hgb 7.8 L 7.6 L Hct 23.9 L* 23.3 L* MCV 88.5 89.3 MCH 28.9 29.1 MCHC 32.6 32.6 RDW 14.4 14.1 Plt Count 367 318 MPV 10.0 9.5 Neut % (Auto) 68.1 68.5 Lymph % (Auto) 20.3 L 18.4 L [place] % (Auto) 8.9 10.3 Eos % (Auto) 1.6 1.5 Baso % (Auto) 0.6 0.8 Neut # (Auto) 9.1 H 8.7 H Lymph # (Auto) 2.7 2.3 [place] # (Auto) 1.2 H 1.3 H Eos # (Auto) 0.2 0.2 Baso # (Auto) 0.1 0.1 Abs Immat Gran (auto) 0.07 H 0.06 H Imm/Tot Granulo (auto) 0.5 0.5 Sodium 139 139 Potassium 3.3 L 3.6 Chloride 103 104 Carbon Dioxide 29.4 29.4 Anion Gap 9.9 9.2 BUN 19.0 H 21.0 H Creatinine 1.79 H 1.73 H Est GFR ( Amer) 46 L 47 L Est GFR (Non-Af Amer) 38 L 39 L BUN/Creatinine Ratio 10.6 12.1 Glucose 125 H 88 Calcium 8.4 L 8.0 L Total Bilirubin 0.5 AST 14 L ALT 11 L Alkaline Phosphatase 86 NT-Pro-B Natriuret Pep 3619.0 H* Total Protein 6.1 L Albumin 2.3 L Globulin 3.8 Albumin/Globulin Ratio 0.6 POC Glucose 167 H 11/01/23 11/01/23 16:03 11:43 WBC RBC Hgb Hct MCV MCH MCHC RDW Plt Count MPV Neut % (Auto) Lymph % (Auto) [place] % (Auto) Eos % (Auto) Baso % (Auto) Neut # (Auto) Lymph # (Auto) [place] # (Auto) Eos # (Auto) Baso # (Auto) Abs Immat Gran (auto) Imm/Tot Granulo (auto) Sodium Potassium Chloride Carbon Dioxide Anion Gap BUN Creatinine Est GFR ( Amer) Est GFR (Non-Af Amer) BUN/Creatinine Ratio Glucose Calcium Total Bilirubin AST ALT Alkaline Phosphatase NT-Pro-B Natriuret Pep Total Protein Albumin Globulin Albumin/Globulin Ratio POC Glucose 92 219 H Discharge Plan Discharge Disposition: Home, Self-Care Condition: Fair Discharge Medications: Continued atorvastatin 40 mg tablet 40 mg PO QPM clopidogrel 75 mg tablet 75 mg PO DAILY duloxetine 60 mg capsule,delayed release(DR/EC) 60 mg PO DAILY metoprolol succinate 50 mg tablet extended release 24 hr 50 mg PO DAILY amlodipine 10 mg tablet 10 mg PO .once daily bumetanide 2 mg tablet 2 mg PO .once daily famotidine 20 mg tablet 20 mg PO BID gabapentin 300 mg capsule 300 mg PO TID melatonin 3 mg tablet 3 mg PO .once daily at bedtim insulin glargine [Lantus Solostar U-100 Insulin] 100 unit/mL (3 mL) insulin pen 20 unit SUBCUT BID quetiapine 25 mg tablet 25 mg PO BID sevelamer carbonate 800 mg tablet 800 mg PO TID trazodone 50 mg tablet 50 mg PO .once daily at bedtim sertraline [Zoloft] 50 mg tablet 25 mg PO DAILY spironolactone 50 mg tablet 50 mg PO DAILY Activity: increase activity as tolerated Diet: advance to your usual diet Print Language: Khmer Patient Instructions: Heart Failure (DC), Leg Edema (ED) Press Smith Helper/Health Insurance Specialist Instructions: Resume jC MITTAL at discharge, phone number is [phone] Forms: Portal Instructions Follow Up Appointments: Call Dr Bryant office tomorrow for F/U appointment
[2023-11-02] MEDS: INSULIN ASPART 300 UNIT/3 ML PEN SUBQ (12:37)
[2023-11-02 12:44] LABS: Glucometer 246 mg/dL (74-106)
--- NOTE | 2023-11-07 12:34 | CM.DCFOLLOWU ---
Person spoke with: Mrs. Diego How are you feeling? hanging in there How is your pain? no pain Did you understand your discharge instructions? yes Do you have any questions about your discharge instructions? no Were you given any prescriptions at discharge? yes Were you able to get your prescriptions filled? yes Do you understand how to take your medications as ordered? yes Do you have any questions about your follow up appointment and do you plan to keep your follow up appointment? Yes, seen the doctor yesterday. Is there anything else that you would like to discuss? No. Questions/Comments/Concerns/Other:
== END 2023-11-02 13:20 | disposition home health service (06) | DRG 291 ==
LOC: ER 10-31 00:11 → ICU 10-31 03:59
PROVIDERS: Nurse Practitioner Acute Care; Admitting Provider Internal Medicine; Emergency Provider Internal Medicine; PCP Family Medicine; Visit Provider Internal Medicine
DX: I13.0 Hypertensive heart and chronic kidney disease with heart failure and stage 1 through stage 4 chronic kidney disease, or unspecified chronic kidney disease (principal); I50.33 Acute on chronic diastolic (congestive) heart failure; E11.22 Type 2 diabetes mellitus with diabetic chronic kidney disease; Z79.4 Long term (current) use of insulin; D72.829 Elevated white blood cell count, unspecified; Z79.02 Long term (current) use of antithrombotics/antiplatelets; E11.51 Type 2 diabetes mellitus with diabetic peripheral angiopathy without gangrene; E11.42 Type 2 diabetes mellitus with diabetic polyneuropathy; Z89.422 Acquired absence of other left toe(s); N18.32 Chronic kidney disease, stage 3b; D63.1 Anemia in chronic kidney disease; I48.91 Unspecified atrial fibrillation; E78.5 Hyperlipidemia, unspecified; Z87.891 Personal history of nicotine dependence; F12.21 Cannabis dependence, in remission; Z90.49 Acquired absence of other specified parts of digestive tract; I16.0 Hypertensive urgency; E11.65 Type 2 diabetes mellitus with hyperglycemia
CPT/HCPCS: 36415; 71046; 71250; 80048; 80053; 82607; 82728; 82746; 82948; 83540; 83550; 83880; 84466; 84484; 85007; 85014; 85018; 85025; 85027; 93005; 94761; 96365; 96366; 96372; 96375; 96376; 97161; 97165; 97530; 99285; G0328

== ENCOUNTER 2023-12-08 13:01 | Outpatient (OUT) | payer OTHER, SELFPAY ==
[2023-12-08 13:19] LABS: Hemoglobin 10.2 g/dL (14.0-18.0)
--- NOTE | 2023-12-08 14:34 | RT_ITS ---
[facility] Test Date: 2023-12-08 Pat Name: ARJUN MOSCOSO Department: Room: - Gender: Male Delivery Person: Jessica Sofia RRT : 1950 Requested By: [id number] Order Number: [id number] Reading MD: Alfonso Kilgore Interpretive Statements Pulmonary function testing was completed according to ATS criteria. Findings were considered accurate and reproducible, with exception of DLCO which did not meet ATS standards. Both pre- and post-bronchodilator values utilized for spirometry. Spirometry (based on pre-bronchodilator values): -FEV1/FVC: Normal @ 74% -FEV1: Normal @ 83% -FVC: Normal @ 86% -[id number]%: Reduced @ 74% -There is no significant bronchodilator response. Lung volumes by plethysmography: -RV: Increased @ 138% -TLC: Normal @ 98% Diffusion capacity: -DLCO: Moderate reduction @ 59% when corrected for Hb 10.2g/dL Flow-volume loop: -Abnormal spike in the expiratory limb suggestive of a glottic maneuver (e.g. cough) Impressions: -Spirometry technically normal, though FEV1/FVC ratio is trending towards obstruction. No bronchodilator response. An elevated RV suggests air trapping. There is a moderately reduced diffusion capacity, though it may be artificially decreased as patient did not met ATS criteria, and/or if he smoked prior to the testing. Overall study may suggest underlying COPD/emphysema. Clinical correlation required. Electronically Signed On 12-10-2023 13:09:26 EDT by Alfonso Kilgore
[2023-12-08] MEDS: ALBUTEROL SULFATE 2.5 MG/3 ML VIAL NEB IH (15:12)
== END 2023-12-08 13:02 | disposition home or self-care (01) ==
LOC: CARD 13:01
PROVIDERS: PCP Family Medicine; Visit Provider Internal Medicine Critical Care Medicine
DX: J96.10 Chronic respiratory failure, unspecified whether with hypoxia or hypercapnia (principal)
CPT/HCPCS: 36415; 85018; 94060; 94726; 94729

== ENCOUNTER 2023-12-23 13:59 | Outpatient (OUT) | payer OTHER, SELFPAY ==
[2023-12-23 15:16] LABS: Hematocrit 32.7 % (42.0-54.0); Hemoglobin 10.3 g/dL (14.0-18.0); Mean Corpuscular HGB Conc 31.5 g/dL (29.9-35.2); Mean Corpuscular Hemoglobin 29.5 pg (25.9-34.0); Mean Corpuscular Volume 93.7 fL (80.0-94.0); Mean Platelet Volume 10.1 fL (9.5-13.5); Platelet Count 370 10^3/uL (150-450); Red Blood Count 3.49 10^6/uL (4.70-6.10); Red Cell Distribution Width 13.2 % (11.0-15.0); White Blood Count 11.6 10^3/uL (4.0-11.0)
[2023-12-23 15:21] LABS: Total Protein Urine Random 129.2 mg/dL (<=11.9)
[2023-12-23 15:30] LABS: Albumin Level 3.2 g/dL (3.4-5.0); Anion Gap 10.4; BUN Creatinine Ratio 18.3; Calcium 8.6 mg/dL (8.5-10.1); Carbon Dioxide 27.4 mmol/L (21.0-32.0); Chloride 104 mmol/L (98-107); Estimated GFR (African America 32 (>=60); Estimated GFR (Non-African Ame 27 (>=60); Glucose 177 mg/dL (74-106); Magnesium 2.1 mg/dL (1.8-2.4); Phosphorus 5.2 mg/dL (2.6-4.7); Potassium 4.8 mmol/L (3.5-5.1); Sodium 137 mmol/L (136-145); Uric Acid 6.2 mg/dL (3.5-7.2)
[2023-12-23 15:48] LABS: Total Protein 24 Hour Urine 1841.1 mg/24hr (<=149.1); Total Volume 24 Hour Urine 1425 mL/24hr
[2023-12-24 12:10] LABS: PTH, Intact 56 pg/mL (15-65)
[2023-12-24 14:10] LABS: Albumin 3.4 g/dL (2.9-4.4); Alpha-1-Globulin 0.2 g/dL (0.0-0.4); Alpha-2-Globulin 0.9 g/dL (0.4-1.0); Gamma Globulin 1.6 g/dL (0.4-1.8); Immunoglobulin A, Qn, Serum 377 mg/dL (61-437); Immunoglobulin G, Qn, Serum 1633 mg/dL (603-1613); Immunoglobulin M, Qn, Serum 49 mg/dL (15-143)
== END 2023-12-23 14:00 | disposition home or self-care (01) ==
LOC: LAB 14:00
PROVIDERS: PCP Family Medicine; Visit Provider Internal Medicine Nephrology
DX: Z79.4 Long term (current) use of insulin (principal); E11.40 Type 2 diabetes mellitus with diabetic neuropathy, unspecified; E11.21 Type 2 diabetes mellitus with diabetic nephropathy; D64.9 Anemia, unspecified; I10 Essential (primary) hypertension; N17.9 Acute kidney failure, unspecified; E83.39 Other disorders of phosphorus metabolism
CPT/HCPCS: 36415; 80069; 81003; 82043; 82306; 82570; 82607; 82728; 82746; 82784; 83540; 83550; 83735; 83970; 84155; 84156; 84165; 84166; 84550; 85027; 86334; 86335

== ENCOUNTER 2024-01-06 20:06 | Outpatient (OUT) | payer OTHER, SELFPAY ==
--- OUTSIDE RECORDS SUMMARY | 2024-01-06 20:12 | XMS_ITS | CCD ---
Author Organization [facility] CliniSywv Care Team Providers Care Sound Editor Name Role Phone Louise Sotelo Unavailable DR TEJAS STEVENS Primary Care Unavailable CELINA Molina, DR TRENT Gallardo Attending Unavailable DR TRENT PIEDRA Admitting Unavailable GARIMA BUCHANAN Attending Unavailable GARIMA BUCHANAN Admitting Unavailable DR TEJAS STEVENS Primary Care Unavailable LEENA BELTRAN Consulting Unavailable GARIMA BUCHANAN Consulting Unavailable Dhruv Bautista Unavailable Pamela Berry Unavailable MD Dhruv Bautista Attending Provider MD Tejas Stevens Primary Care Provider [phone] DO Rico Carr Emergency Provider MD Brennan Cerrato Admit Provider MD Brennan Cerrato Attending Provider [phone] MD Michael Ramírez Other Provider TOY Han Other Provider [phone] JULIA Slater Other Provider Unavailable MD Dhruv Bautista Other Provider [phone] MARCO ANTONIO Berry Other Provider MD Mayra Youngblood Other Provider [phone] MD Giovanni Ni Other Provider [phone] DO Orestes Mejia Attending Provider MD Michael Ramírez Attending Provider DO John Ervin Primary Care Provider [phone] LELAND Sotelo Attending Provider TOY Han Attending Provider MD Dhruv Bautista Attending Provider MD Tejas Stevens Primary Care Provider DO Rico Carr Emergency Provider MD Brennan Cerrato Admit Provider MD Michael Ramírez Other Provider TOY Han Other Provider [phone] JULIA Slater Other Provider Unavailable MD Dhruv Bautista Other Provider MARCO ANTONIO Berry Other Provider MD Mayra Youngblood Other Provider MD Giovanni Ni Other Provider DO Orestes Mejia Attending Provider MD Michael Ramírez Attending Provider DO John Ervin Primary Care Provider LELAND Sotelo Attending Provider TOY Han Attending Provider Michael Ramírez Unavailable KENNETH GONZALES Attending Unavailable TEJAS STEVENS Referring Unavailable TEJAS STEVENS Primary Care Unavailable Tejas Stevens MD Primary Care Provider Tejas Stevens MD Primary Care Provider Tejas Stevens MD Unavailable DO John Ervin Primary Care Provider LELAND Sotelo Attending Provider [phone] MD Tejas Stevens Primary Care Provider LELAND Hudson Emergency Provider MD Arnaldo Thomas Admit Provider MD Arnaldo Thomas Attending Provider MD Michael Ramírez Other Provider TOY Han Other Provider MD Mayra Youngblood Other Provider [phone] MD Tello Nava Attending Provider MD Sanket Hammer Other Provider JULIA Slater Other Provider Unavailable MD Dhruv Bautista Other Provider MARCO ANTONIO Berry Other Provider MD Giovanni Ni Other Provider MD Hermes Morton Other Provider MD Rancho Kay Attending Provider [phone] DO John Ervin Primary Care Provider LELAND Sotelo Attending Provider MD Tejas Stevens Primary Care Provider [phone] LELAND Hudson Emergency Provider [phone] MD Arnaldo Thomas Admit Provider MD Michael Ramírez Other Provider TOY Han Other Provider MD Mayra Youngblood Other Provider MD Sanket Hammer Other Provider JULIA Slater Other Provider Unavailable MD Dhruv Bautista Other Provider MARCO ANTONIO Berry Other Provider MD Giovanni Ni Other Provider MD Hermes Morton Other Provider DO Geo Thomas Attending Provider MD Rancho Kay Attending Provider DO Geo Thomas Admit Provider LELAND Arriaga Other Provider MD Fabio Camacho Other Provider MD Mehul Garrett Other Provider MD Mayra Mccarthy Other Provider DO Sebastian Flores Other Provider MD Maame Jolley Other Provider MD John Beyer J Other Provider MD Pravin Meza Other Provider DO Andi Han M Other Provider DO Alfonso Kilgore Other Provider MD [facility] Other Provider MD Sury Winkler Other Provider ANDRES Molina-C Chyna Other Provider Unavailable MD Rancho Kay Other Provider MD José Miguel Willingham Other Provider MD [place] Other Provider Tika Monteiro Other Provider Unavailable DO Debbie Dennis Other Provider MD Krish Lackey Other Provider DO Mehul Cordon Other Provider Sydney ANP-BC Sindy Other Provider DO Pravin Rivers Other Provider LELAND Kamara Other Provider [phone] MARCO ANTONIO Casey Other Provider LELAND Holm-FURNACE RELINER-C Sirisha Morrison Other Provider DO Darryl Britt Other Provider MD Arnaldo Thomas Attending Provider [phone] TEJAS STEVENS Referring Unavailable TEJAS STEVENS Primary Care Unavailable SANKET HAMMER Referring Unavailable TEJAS STEVENS Primary Care Unavailable SANKET HAMMER Referring Unavailable TEJAS STEVENS Primary Care Unavailable MD Tejas Stevens Primary Care Provider DO Geo Thomas Admit Provider LELAND Arriaga Other Provider MD Fabio Camacho Other Provider MD Mehul Garrett Other Provider MD Mayra Mccarthy Other Provider DO Sebastian Flores Other Provider MD Maame Jolley Other Provider MD John Beyer Other Provider MD Pravin Meza Other Provider DO Andi Han Other Provider DO Alfonso Kilgore Other Provider [phone] MD [facility] Other Provider MD Sury Winkler Other Provider ANDRES Molina-Trell Clemente Other Provider Unavailable MD Rancho Kay Other Provider MD José Miguel Willingham Other Provider MD [place] Other Provider MD Sanket Hammer Other Provider Tika Monteiro Other Provider Unavailable DO Debbie Dennis Other Provider MD Krish Lackey Other Provider DO Mehul Cordon Other Provider Sydney, ANP-BC Sindy Other Provider DO Pravin Rivers Other Provider LELAND Kamara Other Provider MARCO ANTONIO Casey Other Provider [phone] FAMILIA Holm Other Provider DO Darryl Britt Other Provider TOY Han Other Provider MD Michael Ramírez Other Provider MD Arnaldo Thomas Attending Provider Michael Ramírez Attending Unavailable Desiree, Admitting Unavailable BugibranreDhruv pemberton Attending Unavailable Buehrer, Dhruv Admitting Unavailable Naderer, Tejas Primary Care Unavailable Naderer, Tejas Primary Care Unavailable RahulRancho Attending Unavailable Rahul, Rancho Admitting Unavailable Buehrer, Dhruv Attending Unavailable Buehrer, Dhruv Admitting Unavailable Naderer, Tejas Primary Care Unavailable John Ervin Primary Care Unavailable MapLouise cabrera Admitting Unavailable Deejay Sotelodra K Attending Unavailable Desiree, Admitting Unavailable Desiree, Attending Unavailable Rohan Han Attending Unavailable Rohan Han Admitting Unavailable Desiree, Admitting Unavailable Desiree, Attending Unavailable Naderer, Tejas Primary Care Unavailable Megha Arriaga Consulting Unavailable Geo Thomas Admitting UnavailArnaldo Abdullahi Attending Unavailable Fabio Camacho Consulting Unavailable Mehul Garrett Consulting Unavaila Mayra Pascual Consulting Unavailable Sebastian Flores Consulting UnavailMaame Slade Consulting Unavailable John Beyer Consulting Unavailable Pravin Meza Consulting Unavailable Andi Han Consulting Unavailable Alfonso Kilgore Consulting Unavailable Varner, Basem Consulting Unavailable Sury Winkler Consulting Unavailable Chyna Molina Consulting Unavailable Rahul, Rancho Consulting Unavailable Singhandres José Miguel Consulting Unavailable [place] Consulting Unavailable Sanket Hammer Consulting Unavailable Tika Monteiro Consulting Unavailable Debbie Dennis Consulting Unavailable Krish Lackey Consulting Unavailable Mehul Cordon Consulting UnavailSindy Bell Consulting Unavailable Pravin Rivers Consulting Unavailable Munira Kamara Consulting Unavailable Crystal Casey Consulting Unavailable Sirisha Holm Consulting Unavailable Darryl Britt Consulting Unavailable Rohan Han Consulting Unavailable Michael Ramírez Consulting Unavailable AshwiniererTejas Primary Care Unavailable Michael Ramírez Consulting Unavailable Geo Thomas Attending UnavailArnaldo Abdullahi Admitting Unavailable Rohan Han Consulting Unavailable Ford, Mayra Mazariegos Consulting Unavailable BakSanket ferrera Consulting Unavailable Bryon, Richa Consulting Unavailable Dhruv Bautista Consulting Unavailable Pamela Berry Consulting Unavailable Raine, Giovanni Guillen Consulting UnavailHermes George Consulting Unavailneville Cerrato, Brennan Admitting Unavailable Annette, Tejas Primary Care Unavailable Michael Ramírez Consulting Unavailable Orestes Mejai Attending Unavailable Rohan Han Consulting Unavailable Gilriki, Richa Consulting Unavailable Buehrenilay, Dhruv Consulting Unavailable Pamela Berry Consulting Unavailable Ford, Mayra Mazariegos Consulting Unavailable Giovanni Ni Consulting UnavailMichael Andrews Admitting Unavailable Michael Ramírez Attending Unavailable RONEL AQUINO Attending Unavailable BROWN, ROHAN A Attending Unavailable BROWN, ROHAN A Attending Unavailable BROWN, ROHAN A Attending Unavailable BROWN, ROHAN A Attending Unavailable BROWN, ROHAN A Attending Unavailable BROWN, ROHAN A Attending Unavailable BROWN, ROHAN A Attending Unavailable MURCEK, DARRYL Paula Attending Unavailable MURCEK, DARRYL Paula Attending Unavailable BROWN, ROHAN A Attending Unavailable BROWN, ROHAN A Attending Unavailable BROWN, ROHAN A Attending Unavailable NADERER, TEJAS Attending Unavailable NADERER, TEJAS Attending Unavailable NADERER, TEJAS Attending Unavailable NADERER, TEJAS Attending Unavailable BROWN, ROHAN A Attending Unavailable BROWN, ROHAN A Attending Unavailable BROWN, ROHAN A Attending Unavailable Allergies Allergy Classification Reported Allergen(s) Allergy Type Date of Onset Reaction(s) Facility (20 sources) Lisinopril; Translations: [LISINOPRIL] Drug Allergy 7 SWELLING, Facial Swelling [facility] (20 sources) metFORMIN; Translations: [METFORMIN] Drug Allergy 7 Other (See Comments) [facility] (1 source) Amino Acids Drug Allergy [facility] (1 source) metFORMIN Drug Allergy [facility] (13 sources) cefepime; Translations: [CEFEPIME] Drug Allergy 4 Unknown, Hives [facility] (6 sources) Lisinopril Allergy to substance 3 [facility] (1 source) cefepime Drug Allergy 4 [facility] (1 source) Lisinopril Drug Allergy 4 [facility] (1 source) metFORMIN Drug Allergy 4 [facility] Medications Current Medications Medication Drug Class(es) Dates Sig (Normalized) Sig (Original) amLODIPine 10 mg oral tablet (18 sources) Dihydropyridine Calcium Channel Susan Start: 01-06-2024 take 10 mg by mouth once daily Amlodipine Active 10 MG PO Daily January 06, 2024 12:00am Start: 09-29-2023 End: 01-06-2024 take 10 mg by mouth once daily Amlodipine Discontinued 10 MG PO Daily September 29, 2023 12:00am January 06, 2024 4:33pm Start: 07-23-2023 End: 09-29-2023 Amlodipine Discontinued 10 M G OG-TUBE Daily 0 August 23, 2023 12:00am September 29, 2023 2:20pm bumetanide 2 mg oral tablet (5 sources) Loop Diuretic Start: 11-04-2023 End: 12-10-2023 take 2 mg by mouth once daily Bumetanide Active 2 MG PO Daily December 10, 2023 11:29am dapagliflozin 10 mg oral tablet (3 sources) Sodium-Glucose Cotransporter 2 Inhibitor Start: 01-05-2024 End: 01-06-2024 take 1 tablet by mouth once daily Dapagliflozin Propanediol (Farxiga) 10 mg tablet Active 10 MG PO Daily January 06, 2024 4:28pm has not started this yet. 0.5 ML dulaglutide 6 MG/ML Auto-Injector [Trulicity] [...] the skin once a week. 0 Active famotidine 20 mg oral tablet (5 sources) Histamine-2 Receptor Antagonist Start: 09-29-19 take 20 mg by mouth twice daily Famotidine Active 20 MG PO Twice daily September 29, 2023 12:00am flash glucose scanning reader (FreeStyle Shawn 2 [place]) (3 sources) Start: 09-29-19 flash glucose scanning reader (FreeStyle Shawn 2 [place]) Active .Route September 29, 2023 12:00am Flash Glucose Scanning [place] (Freestyle Shawn 2 [place]) misc (2 sources) Start: 01-05-20 Flash Glucose Scanning [place] (Freestyle Shawn 2 [place]) misc Active 0 .ROUTE .MEDSUPPLY January 05, 2024 12:00am As directed Flash Glucose Sensor (Freestyle Shawn 2 Sensor) kit (15 sources) Start: 12-02-19 Flash Glucose Sensor (Freestyle Shawn 2 Sensor) kit Active 0 .ROUTE .COMPLEX December 02, 2023 10:13am USE DIRECTED change EVERY 14 days Start: 01-13-2023 End: 09-29-2023 Flash Glucose Sensor (Freest yle Shawn 2 Sensor) kit Discontinued EACH MISCELLANE January 13, 2023 12:00am September 29, 2023 2:31pm Start: 01-13-2023 Flash Glucose Sensor (Freestyle Shawn 2 Sensor) kit Active EACH MISCELLANE January 12, 2023 11:00pm Start: 01-13-2023 Flash Glucose Sensor (Freestyle Shawn 2 Sensor) kit Active EACH MISCELLANE January 13, 2023 12:00am FreeStyle Shawn 2 [place] - (5 sources) Start: 03-17-2023 FreeStyle Libr e 2 [place] - Use with Shawn 2 sensors SQ daily for 365 days E11.40 Feb, Active FreeStyle Shawn 2 Sensor - (20 sources) FreeStyle Shawn 2 Sensor - Change sensor EVERY 14 days for 84 Active FreeStyle Shawn 2 Sensor - as directed SQ Change every 14 days for 84 days Active gabapentin 300 mg oral capsule (20 sources) Anti-epileptic Agent Start: 01-06-2024 take 300 mg by mouth three times daily Gabapentin Active 300 MG PO Three times daily January 06, 2024 12:00am Start: 09-29-2023 End: 10-21-2023 take 100 mg by mouth once daily at bedtime Gabapentin Discontinued 100 MG PO Daily at bedtime September 29, 2023 12:00am October 21, 2023 1:17pm Start: 09-29-2023 End: 01-06-2024 take 300 mg by mouth three times daily Gabapentin Discontinued 300 MG PO Three times daily October 21, 2023 1:13pm January 06, 2024 4:35pm Start: 08-23-2023 End: 09-29-2023 Gabapentin Discontinued 100 MG NG-TUBE Every evening 0 August 23, 2023 12:00am September 29, 2023 2:24pm Start: 08-23-2023 End: 09-29-2023 Start: 07-26-2023 End: 08-23-2023 take 300 mg by mouth once daily in the evening Gabapentin Discontinued 300 MG PO Every evening July 26, 2023 1:00am August 23, 2023 12:55pm Start: 07-25-2023 End: 07-26-2023 take 300 mg by mouth once daily Gabapentin Discontinue d 300 MG PO Daily July 25, 2023 3:47pm July 26, 2023 12:22pm Start: 01-13-2023 End: 07-26-2023 take 800 mg by mouth three times daily Gabapentin Discontinued 800 MG PO Three times daily January 13, 2023 12:00am July 25, 2023 3:47pm take 3 capsules by m outh three times daily gabapentin (NEURONTIN) 100 mg capsule Take 3 capsules (300 mg total) by mouth 3 (three) times a day. 0 Active take 1 tablet by every eight hours Gabapentin 600 MG 1 capsule Orally tid for 30 day(s) Active hydrOXYzine hydrochloride 25 mg oral tablet (1 source) Antihistamine Start: 01-06-2024 take 25 mg by mouth four times daily Hydroxyzine Hcl Active 25 MG PO Four times daily January 06, 2024 12:00am ibuprofen 200 mg oral tablet (20 sources) Nonsteroidal Anti-inflammatory Drug take 1 tablet by mouth every six hours as needed for pain ibuprofen (ADVIL,MOTRIN) 200 mg tablet Take 1 tablet (200 mg total) by mouth every 6 (six) hours as needed for pain. 0 Active Motrin Active 3 ml insulin glargine 100 unt/ml pen injector (20 sources) Insulin Analog Start: 01-05-2024 Insulin Glargi ne (Lantus Solostar U-100 Insulin) 100 unit/mL (3 mL) insulin pen Active 18 UNIT SUBCUT Twice daily January 05, 2024 5:04pm Start: 08-23-2023 End: 01-05-2024 Insulin Glargine (Lantus Anna ostar U-100 Insulin) 100 unit/mL (3 mL) insulin pen Discontinued 20 UNIT SUBCUT Twice daily October 21, 2023 1:14pm January 05, 2024 5:04pm Start: 02-23-2023 End: 10-21-2023 Insulin Glargine (Basaglar Kwikpen U-100 Insulin) 100 unit/mL (3 mL) Insulin Pen Discontinued 37 UNIT SUBCUT 2 times daily February 23, 2023 12:00am August 23, 2023 12:55pm Start: 02-23-2023 Insulin Glargi ne (Basaglar Kwikpen [...] to 100 units/day Active Insulin Lispro (Humalog Kwikpen Insulin) 100 unit/mL insulin pen (7 sources) Start: 01-05-2024 Insulin Lispro (Humalog Kwikpen Insulin) 100 unit/mL insulin pen Active 0 SUBCUT Use as Directed January 05, 2024 3:04pm subcutaneously use as directed; 10-15-20-25 units ac according to meal size tid plus ISS 1:15 ac (hs if >200 half dose), SQ, as directed, Notes: expect up to 60 units/day Start: 01-05-2024 End: 01-05-2024 Insulin Lispro (Humalog Kwik pen Insulin) 100 unit/mL insulin pen Discontinued 1 sliding scale dose SUBCUT Use as Directed January 05, 2024 12:00am January 05, 2024 3:04pm Start: 09-29-2023 End: 10-21-2023 Insulin Lispro (Humalog Kwik pen Insulin) 100 unit/mL insulin pen Discontinued 0 SUBCUT Use as Directed September 29, 2023 12:00am October 21, 2023 1:15pm subcutaneously use as directed; 10-15-20-25 units ac according to meal size tid plus ISS 1:15 ac (hs if >200 half dose) ketorolac tromethamine 5 mg/ml ophthalmic solution (6 sources) Nonsteroidal Anti-inflammatory Drug, Cyclooxygenase Inhibitor Start: 06-16-2022 ketorolac (Acular) 0.5 % ophthalmic solution Administer 1 drop into both eyes in the morning and 1 drop at noon and 1 drop in the evening and 1 drop before bedtime. 0 06/16/2022 Active melatonin 5 mg oral capsule (4 sources) Start: 01-06-2024 take 5 mg by mouth once daily at bedtime Melatonin Active 5 MG PO Daily at bedtime January 06, 2024 12:00am Start: 09-29-2023 End: 01-06-2024 take 6 mg by mouth once daily at bedtime Melatonin Discontinued 6 MG PO Daily at bedtime September 29, 2023 12:00am January 06, 2024 4:29pm Start: 09-29-2023 take 6 mg by mouth o nce daily at bedtime Melatonin Active 6 MG PO Daily at bedtime September 29, 2023 12:00am meropenem 1000 mg injection (12 sources) Penem [...] extended release oral tablet (20 sources) beta-Adrenergic Susan Start: take 50 mg by mouth once daily Metoprolol Succinate Active 50 MG PO Daily January 06, 2024 12:00am Start: 08-23-2023 End: 01-06-2024 take 50 mg by mouth twice daily Metoprolol Tartrate Di scontinued 50 MG PO Twice daily September 29, 2023 2:25pm January 06, 2024 4:30pm Start: 08-23-2023 End: 09-29-2023 Start: 01-13-2023 End: 08-23-2023 take 50 mg by mouth once daily Metoprolol Succinate Di scontinued 50 MG PO Daily January 13, 2023 12:00am August 23, 2023 12:55pm Start: 05-06-2022 take 1 tablet by shelbie th every twenty-four hours in the morning metoprolol succinate XL (Toprol-XL) 50 MG 24 hr tablet Take 50 mg by mouth in the morning. 0 10/03/2022 Active Metoprolol Succi rebel ER Active One Touch Glucometer 1 (20 sources) Start: 11-10-2014 One Touch Glucometer 1 use to test blood sugars 250.02 / V58.67 4 x daily Oct, Active OneTouch Ultra Blue 100 pack (20 sources) OneTouch Ultra Blue 100 pack use with One Touch Ultra Glucometer 4 x daily for 90 day(s) E11.40 Active pen needle, diabetic (BD Ultra-Fine [place] Pen Needle) (3 sources) Start: 09-29-2023 pen needle, diabetic (BD Ultra-Fine [place] Pen Needle) Active .Route September 29, 2023 12:00am QUEtiapine 100 mg oral tablet (8 sources) Atypical Antipsychotic Start: 01-05-2024 take 1 tablet by mouth once daily at bedtime Quetiapine (Seroquel) 100 mg tablet Active 100 MG PO Daily at bedtime January 06, 2024 12:00am Start: 09-29-2023 End: 01-06-2024 take 25 mg by mouth twice daily Quetiapine Discontinued 25 MG PO Twice daily September 29, 2023 12:00am January 06, 2024 4:32pm sertraline 100 mg oral tablet (6 sources) Serotonin Reuptake Inhibitor Start: 01-06-2024 take 100 mg by mouth once daily Sertraline Active 100 MG PO Daily January 06, 2024 12:00am Start: 09-29-2023 End: 01-06-2024 take 50 mg by mouth once daily Sertraline Discontinued 50 MG PO Daily September 29, 2023 12:00am January 06, 2024 4:34pm sevelamer carbonate 800 mg oral tablet (6 sources) Phosphate Binder Start: 01-06-2024 take 1600 mg by mouth three times daily Sevelamer Carbonate Active 1600 MG PO Three times daily January 06, 2024 12:00am Start: 09-29-2023 End: 01-06-2024 take 1600 mg by mouth three times daily at mealtime Sevelamer Hcl Discontinued 1600 MG PO Three times daily September 29, 2023 12:00am January 06, 2024 4:32pm must administer with a meal/food spironolactone 50 mg oral tablet (3 sources) Aldosterone Antagonist Start: 11-04-2023 take 50 mg by mouth once daily Spironolactone Active 50 MG PO Daily November 04, 2023 12:00am traMADol hydrochloride 50 mg oral tablet (20 sources) Opioid Agonist Start: 09-29-2023 take 50 mg by mouth once daily Tramadol Active 50 MG PO Daily September 29, 2023 12:00am Start: 01-13-2023 End: 07-23-2023 Tramadol Discontinued 50 MG PO EVERY 6-12 HOURS January 13, 2023 12:00am July 23, 2023 1:10pm Start: 01-13-2023 End: 07-23-2023 take 1 tablet by shelbie once daily as needed traMADol ER (ULTRAM-ER) 200 MG 24 hr tablet Take 1 tablet (200 mg total) by mouth daily as needed. 0 Active traZODone hydrochloride 50 mg oral tablet (5 sources) Serotonin Reuptake Inhibitor Start: 09-29-2023 take 50 mg by mouth once daily at bedtime Trazodone Active 50 MG PO Daily at bedtime September 29, 2023 12:00am Vitamin D 125 MCG (5000 UT) (20 sources) take 1 tablet by mouth once daily Vitamin D 125 MCG (5000 UT) 1 tablet Orally Daily Active Vitamin D3 (3 sources) Vitamin D3 Active Completed/Discontinued Medications Medication Drug Class(es) Dates Sig (Normalized) Sig (Original) acetaminophen 32 mg/ml oral suspension (12 sources) Start: 08-23-2023 End: 09-29-2023 Acetaminophen Discontinued 650 MG NG-TUBE Q6H 0 August 23, 2023 12:00am September 29, 2023 2:15pm Start: 08-23-2023 End: 09-29-2023 Start: 07-26-2023 End: 08-23-2023 take 650 mg by mouth every four to six hours Acetaminophen Discontinued 650 MG PO EVERY 4-6 HOURS July 26, 2023 1:00am August 23, 2023 12:55pm Start: 07-26-2023 End: 08-23-2023 [id number] 200 actuat albuterol 0.09 mg/actuat metered dose inhaler (6 sources) beta2-Adrenergic Agonist Start: 08-23-2023 End: 09-29-2023 Albuterol Sulfate Discontinued 6 PUFF VENT Every 6 hours 0 August 23, 2023 12:00am September 29, 2023 2:31pm Start: 08-23-2023 End: 09-29-2023 amoxicillin 875 mg / clavulanate 125 mg oral tablet (6 sources) Penicillin-class Antibacterial Start: 07-25-2023 End: 08-01-2023 take 1 tablet by mouth every twelve hours Amoxicillin-Pot Clavulanate Discontinued 1 TAB PO Every 12 hours July 25, 2023 1:00am August 01, 2023 8:51am Start: 07-25-2023 End: 08-01-2023 aspirin 81 mg delayed release oral tablet (16 sources) Platelet Aggregation Inhibitor, Nonsteroidal Anti-inflammatory Drug Start: 01-13-2023 End: 02-23-2023 take 81 mg by mouth once daily Aspirin Discontinued 81 MG PO Daily 90 90 January 13, 2023 12:00am February 23, 2023 5:15pm pt states was told to hold medication atorvastatin 40 mg oral tablet (20 sources) HMG-CoA Reductase Inhibitor Start: 07-07-2019 End: 10-21-2023 Atorvastatin Discontinued 40 MG FEEDTUBE Daily August 23, 2023 12:54pm October 21, 2023 1:17pm take 1 tablet by mouth once katarina y at bedtime baclofen 10 mg oral tablet (20 sources) gamma-Aminobutyric Acid-ergic Agonist Start: 07-26-2023 End: 08-23-2023 take 10 mg by mouth twice daily Baclofen Discontinued 10 MG PO Twice daily July 26, 2023 12:26pm August 23, 2023 12:55pm Start: 01-13-2023 Baclofen Activ e MG TABLET January 13, 2023 12:00am Start: 10-03-2022 End: 07-23-2023 take 20 mg by mouth three times daily Baclofen Discontinued 20 MG PO Three times daily January 13, 2023 12:00am July 23, 2023 1:10pm Start: 10-03-2022 take 1 tablet by shelbie th in the morning, then take 1 tablet by mouth in the evening, then take 1 tablet by mouth at bedtime baclofen (Lioresal) 20 MG tablet Take 20 mg by mouth in the morning and 20 mg in the evening and 20 mg before bedtime. 0 10/03/2022 Active cefepime 2000 mg injection (20 sources) Cephalosporin Antibacterial Start: 03-03-2023 End: 07-16-2023 take 2 g intravenously every twelve hours Cefepime Discontinued 2 GM IV Q12H 70 35 March 03, 2023 12:00am July 16, 2023 10:46am Cefepime HCl 2 G M as directed Intravenous Active celecoxib 200 mg oral capsule (20 sources) Nonsteroidal Anti-inflammatory Drug Start: 07-07-2019 End: 07-23-2023 take 200 mg by mouth once daily Celecoxib Discontinued 200 MG PO Daily January 13, 2023 12:00am July 23, 2023 1:10pm take 1 capsule by [facility] every twelve hours CeleBREX 200 MG 1 capsule with food Oral ly bid Active take 1 capsule by mo uth every twenty-four hours CeleBREX 100 MG 1 capsule with food Oral ly Once a day Active clopidogrel 75 mg oral table t (20 sources) [id number] Platelet Inhibitor Start: 08-23-2023 End: 10-21-2023 Start: 01-13-2023 End: 10-21-2023 Clopidogrel Discontinued 75 MG NG-TUBE Daily 0 August 23, 2023 12:00am October 21, 2023 1:17pm diclofenac sodium 0.01 mg/mg topical gel (6 sources) Nonsteroidal Anti-inflammatory Drug Start: 08-23-2023 End: 09-29-2023 apply 4 g topically four times daily Diclofenac Sodium Discontinued 4 GM TOPICAL Four times daily 0 August 23, 2023 12:00am September 29, 2023 2:31pm docusate sodium 50 mg / sennosides, custodial 8.6 mg oral tablet (6 sources) Start: 07-23-2023 End: 08-23-2023 take 2 tablets by mouth twice daily Sennosides-Docusa te Sodium Discontinued 2 TAB PO Twice daily July 23, 2023 1:00am August 23, 2023 12:55pm Start: 07-23-2023 End: 08-23-2023 DULoxetine 60 mg delayed release oral capsule (20 sources) Serotonin and Norepinephrine Reuptake Inhibitor Start: 01-13-2023 Duloxetine Active MG PO January 13, 2023 12:00am Start: 07-07-2019 End: 09-29-2023 take 60 mg by mouth once daily Duloxetine Discontinued 60 MG PO Daily January 13, 2023 12:00am September 29, 2023 2:31pm DULoxetine HCl A ctive flash glucose sensor (BrightScopee Shawn 2 Sensor) (3 sources) Start: 09-29-2023 End: 12-02-2023 flash glucose sensor (FreeSt yle Shawn 2 Sensor) Discontinued .Route September 29, 2023 12:00am December 02, 2023 10:13am Start: 09-29-2023 flash glucose sensor (FreeStyle Shawn 2 Sensor) Active .Route September 29, 2023 12:00am FreeStyle InsuLinx Test - (12 sources) FreeStyle InsuLi nx Test - Use Test Strip to test BLOOD SUGAR DIRECTED BEFORE MEALS & AT BEDTIME NEEDED for 90 Not-Taking FreeStyle Shawn 14 Day Reade r - (12 sources) Start: 10-08-2018 FreeStyle Libr e 14 Day [place] - use with 14 day sensors SQ Daily for 365 days September, Not-Taking Start: 10-08-2018 FreeStyle Libr e 14 Day [place] - use with 14 day sensors SQ [...] days for 84 day(s) E11.40 September, Active furosemide 40 mg oral tablet (18 sources) Loop Diuretic Start: 10-21-2023 End: 11-04-2023 take 2 tablets by mouth twice daily Furosemide (Lasix) 40 mg tablet Discontinued 80 MG PO Twice daily 60 October 21, 2023 1:38pm November 04, 2023 3:41pm Start: 10-09-2023 End: 10-21-2023 take 1 tablet by mouth twice daily Furosemide (Lasix) 40 mg tablet Discontinued 40 MG PO Twice daily 60 October 09, 2023 1:46pm October 21, 2023 1:41pm Start: 07-23-2023 End: 08-23-2023 take 80 mg by mouth twice daily Furosemide Discontinue d 80 MG PO BID@0800,1600 60 July 23, 2023 1:00am August 23, 2023 12:55pm Gemfibrozil (12 sources) Peroxisome Proliferator Receptor alpha Agonist take 1 tablet by mouth twice daily Gemfibrozil 600 1 tablet Orally Twice a day for 30 day(s) Active take 1 tablet by mouth twice christ ly Gemfibrozil 600 1 tablet Orally Twice a day for 30 day(s) Not-Taking Insulin Aspart U-100 (Novolo g Flexpen U-100 Insulin) 100 unit/mL (3 mL) Insulin Pen (3 sources) Start: 08-23-2023 End: 09-29-2023 Insulin Aspart U-100 (Novolo g Flexpen U-100 Insulin) 100 unit/mL (3 mL) Insulin Pen Discontinued 0 UNIT SUBCUT Every 6 hours 0 August 23, 2023 12:00am September 29, 2023 2:31pm Insulin Aspart U-100 (Novolo g Flexpen U-100 Insulin) 100 unit/mL (3 mL) insulin pen (6 sources) Start: 09-29-2023 End: 09-29-2023 Insulin Aspart U-100 (Novolo g Flexpen U-100 Insulin) 100 unit/mL (3 mL) insulin pen Discontinued 0 UNIT SUBCUT Every 6 hours September 29, 2023 2:36pm September 29, 2023 2:38pm 10-15-20-25 units ac according to meal size tid plus ISS 1:15 ac (hs if >200 half dose) Start: 09-29-2023 End: 09-29-2023 Insulin Aspart U-100 (Novolo g Flexpen U-100 Insulin) 100 unit/mL (3 mL) insulin pen Discontinued 0 UNIT SUBCUT Every 6 hours September 29, 2023 2:26pm September 29, 2023 2:38pm per sliding scale Insulin Lispro (Humalog Kwikpen Insulin) 100 unit/mL Insulin Pen (11 sources) Start: 02-23-2023 End: 08-23-2023 Insulin Lispro (Humalog Kwik pen Insulin) 100 unit/mL Insulin Pen Discontinued 0 .ROUTE .COMPLEX February 23, 2023 12:00am August 23, 2023 12:55pm SSC Start: 02-23-2023 Insulin Lispro (Humalog Kwikpen Insulin) 100 unit/mL Insulin Pen Active 0 .ROUTE .COMPLEX February 22, 2023 11:00pm SSC Start: 02-23-2023 Insulin Lispro (Humalog Kwikpen Insulin) 100 unit/mL Insulin Pen Active 0 .ROUTE .COMPLEX February 23, 2023 12:00am SSC lansoprazole 30 mg disintegrating oral tablet (11 sources) Proton Pump Inhibitor Start: 08-23-2023 End: 10-21-2023 take 30 mg by mouth once daily Lansoprazole Discontinued 30 MG PO Daily September 29, 2023 2:25pm October 21, 2023 1:15pm magnesium oxide 400 mg oral tablet (20 sources) Start: 03-04-2023 End: 07-10-2023 take 400 mg by mouth once daily Magnesium Oxide Discontinued 400 MG PO Daily March 04, 2023 12:00am July 10, 2023 10:48pm Medical Marijuana / Cannabinoid Product as documented (12 sources) Medical Marijuan a / Cannabinoid Product as documented as documented as documented as documented Active Medical Marijuan a / Cannabinoid Product as documented as documented as documented as documented Not-Taking NIFEdipine 30 mg osmotic 24 hr extended release oral tablet (20 sources) Dihydropyridine Calcium Channel Susan Start: 03-04-2023 End: 07-23-2023 take 30 mg by mouth once daily Nifedipine Discontinued 30 MG PO Daily March 04, 2023 12:00am July 23, 2023 1:10pm Start: 03-04-2023 End: 07-23-2023 take 1 tablet by shelbie th every twenty-four hours NIFEdipine ER 30 MG 1 tablet on an empty stomach Orally Once a day Active omega-3 acid ethyl esters (custodial) 1000 mg oral capsule (12 sources) Start: 07-27-2020 take 2 capsules by mouth every twelve hours Lovaza 1 GM 2 capsules Orally Twice a day for 30 day(s) Jul, Not-Taking omeprazole 20 mg delayed release oral capsule (20 sources) Proton Pump Inhibitor Start: 07-10-2023 End: 07-26-2023 take 20 mg by mouth once daily in the morning Omeprazole Discontinued 20 MG PO Every morning July 10, 2023 1:00am July 26, 2023 12:23pm Medication Name: Omeprazole; Note: Source Status: Taking; Provider: Ashleigh Gil ( ) take 1 capsule by mo uth once daily before breakfast omeprazole (PriLOSEC) 20 mg capsule Take 1 capsule (20 mg total) by mouth every morning before breakfast. 0 Active Omeprazole Activ e ondansetron 4 mg disintegrating oral tablet (6 sources) Serotonin-3 Receptor Antagonist Start: 07-26-2023 End: 08-23-2023 take 4-8 mg by mouth every six hours Ondansetron Discontinued 4 - 8 MG PO Every 6 hours July 26, 2023 12:43pm August 23, 2023 12:55pm Start: 07-26-2023 End: 08-23-2023 oxyCODONE hydrochloride 5 mg oral tablet (6 sources) Opioid Agonist Start: 07-23-2023 End: 08-23-2023 take 10 mg by mouth every four hours Oxycodone Discontinued 10 MG PO Q4H 10 July 23, 2023 August 23, 2023 12:55pm pantoprazole 40 mg delayed release oral tablet (6 sources) Proton Pump Inhibitor Start: 07-26-2023 End: 08-23-2023 take 40 mg by mouth once daily in the morning Pantoprazole Discontinued 40 MG PO Every morning 0 July 26, 2023 1:00am August 23, 2023 12:55pm polyethylene glycol 3350 83438 mg powder for oral solution (6 sources) Osmotic Laxative Start: 07-26-2023 End: 08-23-2023 Polyethylene Glycol 3350 (Healthylax) 17 gram Powder In Packet Discontinued 17 GM PO Daily July 26, 2023 1:00am August 23, 2023 12:55pm 0.25 mg, 0.5 mg dose 1.5 ml semaglutide 1.34 mg/ml pen injector (12 sources) Start: 11-14-2020 Ozempic (0.25 or 0.5 MG/DOSE) 2 MG/1.5ML 0.5mg Subcutaneous once weekly for 84 days Oct, Not-Taking (20 sources) Start: 09-29-2023 End: 09-29-2023 Start: 09-29-2023 End: 09-29-2023 Start: 09-29-2023 End: 10-21-2023 Start: 09-29-2023 Start: 08-23-2023 End: 09-29-2023 Start: 08-23-2023 Start: 02-23-2023 End: 08-23-2023 Start: 01-13-2023 End: 09-29-2023 Start: 01-13-2023 Problems Active Problems Problem Classification Problem Date Documented Da te Episodic/Chronic Acute and unspecified renal failure (20 sources) Acute renal failure syndrome; Translations: [Acute kidney failure, unspecified] Onset: 08-01-2023 07-16-2023 Episodic Administrative/social admission (17 sources) Dietary counseling and surveillance; Translations: [Patient encounter status] Onset: 02-22-2021 Resolved: 02-06-2022 Episodic Cancer of prostate (1 source) Malignant tumor of prostate; Translations: [Malignant neoplasm of prostate] Onset: 07-22-2019 12-04-2022 Chronic Chronic kidney disease (20 sources) Anemia of renal disease; Translations: [Chronic kidney disease, unspecified] Onset: 08-01-2023 08-01-2023 Chronic Chronic ulcer of skin (20 sources) Non-pressure chronic ulcer of other part of left foot with unspecified severity; Translations: [Non-pressure chronic ulcer of other part of left foot with bone involvement without evidence of necrosis] Onset: 08-01-2023 Chronic Congestive heart failure; nonhypertensive (5 sources) Congestive heart failure; Translations: [Heart failure, unspecified] Onset: 12-29-2023 11-04-2023 Chronic Coronary atherosclerosis and other heart disease (2 sources) Coronary atherosclerosis and other heart disease; Translations: [Atherosclerosis of [place] arteries of extremities with intermittent claudication, left leg] Onset: 01-13-2023 Deficiency and other anemia (2 sources) Anemia in chronic kidney disease; Translations: [Anemia in chronic kidney disease] Onset: 08-01-2023 Chronic Deficiency and other anemia (4 sources) Anemia; Translations: [Anemia, unspecified] 10-21-2023 Episodic Deficiency and other anemia (5 sources) Anemia, unspecified; Translations: [Anemia, unspecified] 10-21-2023 Episodic Diabetes mellitus with complications (20 sources) Disorder of kidney due to diabetes mellitus; Translations: [Type 2 diabetes mellitus with other diabetic kidney complication] Onset: 02-22-2021 Resolved: 02-06-2022 Chronic Diabetes mellitus without complication (20 sources) Type 2 diabetes mellitus; Translations: [Type 2 diabetes mellitus without complications] Onset: 08-01-2023 07-10-2023 Chronic Diseases of white blood cells (16 sources) Leukocytosis; Translations: [Elevated white blood cell count, unspecified] Onset: 08-01-2023 07-14-2023 Chronic Disorders of lipid metabolism (20 sources) Hyperlipidemia; Translations: [Hyperlipidemia, unspecified] Onset: 02-22-2021 Resolved: 02-06-2022 Chronic Diverticulosis and diverticulitis (1 source) Diverticulosis of large intestine without perforation or abscess without bleeding; Translations: [DVRTCLOS LG INT NO PERF/ABSC W/O BL] Onset: 07-25-2022 Chronic Essential hypertension (20 sources) Essential hypertension; Translations: [Essential (primary) hypertension] Onset: 01-06-2017 Resolved: 02-06-2022 Chronic Fluid and electrolyte disorders (12 sources) Hyponatremia; Translations: [Hypo-osmolality and hyponatremia] Onset: 07-10-2023 07-15-2023 Episodic Gangrene (19 sources) Gangrene, not elsewhere classified; Translations: [Gangrene] Onset: 07-10-2023 07-11-2023 Episodic Infective arthritis and osteomyelitis (except that caused by tuberculosis or sexually transmitted disease) (20 sources) Acute osteomyelitis of ankle and/or foot; Translations: [Acute hematogenous osteomyelitis, left ankle and foot] Onset: 02-23-2023 02-24-2023 Chronic Mycoses (2 sources) Onychomycosis; Translations: [Tinea unguium] 06-26-2023 Episodic Neoplasms of unspecified nature or uncertain behavior (10 sources) Thrombocytosis; Translations: [Thrombocythemia] 08-18-2023 Episodic Nutritional deficiencies (20 sources) Vitamin D deficiency; Translations: [Vitamin D deficiency, unspecified] Onset: 02-22-2021 Resolved: 04-03-2021 Chronic Open wounds of extremities (1 source) Laceration without foreign body, unspecified foot, initial encounter Episodic Other aftercare (20 sources) Long-term current use of insulin; Translations: [manager terminal (current) use of insulin] Episodic Other aftercare (8 sources) manager terminal (current) use of insulin; Translations: [manager terminal current use of insulin Z79.4] Onset: 02-22-2021 [...] right toe(s)] 06-26-2023 Episodic Other gastrointestinal disorders (11 sources) Diarrhea; Translations: [Diarrhea, unspecified] 02-28-2023 Episodic Other gastrointestinal disorders (7 sources) Constipation; Translations: [Constipation, unspecified] 07-15-2023 Episodic Other lower respiratory disease (6 sources) Acute pulmonary edema; Translations: [Acute pulmonary edema] 08-01-2023 Episodic Other lower respiratory disease (2 sources) Other forms of dyspnea; Translations: [Other forms of dyspnea] Onset: 12-29-2023 Episodic Other nervous system disorders (6 sources) Disorder of brain; Translations: [Encephalopathy, unspecified] 08-06-2023 Chronic Other nervous system disorders (5 sources) Encephalopathy, unspecified; Translations: [Encephalopathy, unspecified] Onset: 08-01-2023 08-23-2023 Chronic Other nervous system disorders (5 sources) Neuropathy; Translations: [Polyneuropathy, unspecified] 09-29-2023 Chronic Other nutritional; endocrine; and metabolic disorders [...] mass index (BMI) 34.0-34.9, adult Chronic Other nutritional; endocrine; and metabolic disorders (4 sources) Hyperphosphatemia; Translations: [Other disorders of phosphorus metabolism] 10-21-2023 Chronic Other nutritional; endocrine; and metabolic disorders (5 sources) Other disorders of phosphorus metabolism; Translations: [Disorders of phosphorus metabolism] 10-21-2023 Chronic Other nutritional; endocrine; and metabolic disorders (5 sources) Overweight in adulthood with body mass index of 25 or more but less than 30; Translations: [Body mass index (BMI) 29.0-29.9, adult] 09-29-2023 Episodic Other nutritional; endocrine; and metabolic disorders (4 sources) Body mass index (BMI) 29.0-29.9, adult; Translations: [Body Mass Index 29.0-29.9, adult] 09-29-2023 Episodic Other screening for suspected conditions (not mental disorders or infectious disease) (15 sources) Encounter for screening for malignant neoplasm of colon; Translations: [Protein level - finding] Onset: 07-23-2022 Episodic Peripheral and visceral atherosclerosis (20 sources) Peripheral vascular disease; Translations: [Peripheral vascular disease, unspecified] Onset: 08-01-2023 Chronic Residual codes; unclassified (20 sources) Deficient knowledge of dietary regimen; Translations: [Other specified health status] Episodic Residual codes; unclassified (1 source) Acquired absence of other specified parts of digestive tract; Translations: [ACQ ABSENCE OTH PART DIGESTV TRACT] Onset: 07-25-2022 Episodic Residual codes; unclassified (3 sources) Other specified postprocedural states; Translations: [Tracheostomy status] 11-04-2023 Episodic Respiratory failure; insufficiency; arrest (adult) (4 sources) Chronic respiratory failure with hypoxia; Translations: [Chronic respiratory failure] Onset: 09-26-2023 11-04-2023 Chronic Respiratory failure; insufficiency; arrest (adult) (20 sources) Acute respiratory failure; Translations: [Acute respiratory failure with hypoxia] Onset: 08-01-2023 08-01-2023 Episodic Screening and history of mental health and substance abuse codes (1 source) Personal history of nicotine dependence; Translations: [PERSONAL HISTORY OF NICOTINE DEPEND] Onset: 07-25-2022 Episodic Septicemia (except in labor) (14 sources) Sepsis; Translations: [Sepsis, unspecified organism] Onset: 07-10-2023 07-10-2023 Episodic Skin and subcutaneous tissue infections (13 sources) Cellulitis of left foot; Translations: [Cellulitis of left lower limb] Onset: 07-10-2023 07-11-2023 Episodic Spondylosis; intervertebral disc disorders; other back problems (20 sources) Sciatica; Translations: [Sciatica, left side] Onset: 02-23-2023 02-25-2023 Episodic Unclassified (1 source) Consult Onset: 05-12-2023 Unclassified (1 source) Thrombocytosis, unspecified; Translations: [Thrombocytosis, unspecified] Onset: 08-01-2023 Unclassified (1 source) Other acute osteomyelitis, left ankle and foot; Translations: [Other acute osteomyelitis, left ankle and foot] Onset: 03-25-2023 Past or Other Problems Problem Classification Problem Date Documented Da te Episodic/Chronic Bacterial infection; unspecified site (17 sources) Bacterial infection due to Pseudomonas; Translations: [Other bacterial infections of unspecified site] Onset: 02-23-2023 02-28-2023 Episodic Mood disorders (1 source) Mood disorders Onset: 01-06-2017 01-06-2017 Nausea and vomiting (17 sources) Vomiting; Translations: [Vomiting, unspecified] Onset: 02-23-2023 02-28-2023 Episodic Other aftercare (1 source) manager terminal (current) use of antibiotics; Translations: [manager terminal (current) use of antibiotics] Onset: 02-23-2023 Episodic Other gastrointestinal disorders (6 sources) Diarrhea, unspecified; Translations: [Diarrhea] Onset: 02-23-2023 03-04-2023 Episodic Other gastrointestinal disorders (5 sources) Constipation, unspecified; Translations: [Constipation, unspecified] Onset: 07-10-2023 07-10-2023 Episodic Other lower respiratory disease (5 sources) Acute pulmonary edema; Translations: [Acute edema of lung, unspecified] Onset: 08-01-2023 08-23-2023 Episodic Other male genital disorders (1 source) Phimosis; Translations: [Phimosis] Onset: 07-22-2019 08-14-2020 Episodic Results Test Name Value Interpretation Reference Range Facility Office Visiton 12-29-2023 Follow-up visit [id number] Sudeep Diego JR 1950 M Date Provider Department Center 12/29/2023 Mark-RONEL [facility] Family History Problem Relation Age of Onset Diabetes Mother Family Status - Relation Status Age at Mother Level of Service:48227 MT OFFICE/OUTPATIENT ESTABLISHED MOD MDM 30 MIN Normal [facility] Albumin [Mass/volume] in Ser um or Plasmaon 12-23-2023 Albumin [Mass/Vol] 3.4 g/dL 2.9-4.4 [facility] Erythrocyte distribution wid th Auto (RBC) [Ratio]on 12-23-2023 Erythrocyte distribution width (RBC) [Ratio] 13.2 % 11.0-15.0 [facility] Estimated glomerular filtrat ion rate (GFR) non- Americanon 12-23-2023 GFR/1.73 sq M.predicted among non-blacks MDRD (S/P/Bld) [Vol rate/Area] 27 mL/min/{1.73_m2} Low >=60 [facility] Hematocrit Auto (Bld) [Volum e fraction]on 12-23-2023 Hematocrit (Bld) [Volume fraction] 32.7 % Low 42.0-54.0 [facility] Hemoglobin [Mass/volume] in Bloodon 12-23-2023 Hemoglobin (Bld) [Mass/Vol] 10.3 g/dL Low 14.0-18.0 [facility] IgA [Mass/volume] in Serum o r Plasmaon 12-23-2023 IgA [Mass/Vol] 377 mg/dL 61-437 [facility] IgG [Mass/volume] in Serum o r Plasmaon 12-23-2023 IgG [Mass/Vol] 1633 mg/dL Abnormal 603-1613 [facility] IgM [Mass/volume] in Serum o r Plasmaon 12-23-2023 IgM [Mass/Vol] 49 mg/dL 15-143 [facility] Iron binding capacity [Mass/ volume] in Serum or Plasmaon 12-23-2023 Iron binding capacity [Mass/Vol] 257.0 ug/dL 250.0-450.0 [facility] Iron saturation [Mass Fracti on] in Serum or Plasmaon 12-23-2023 Iron saturation [Mass fraction] 21.0 % [facility] Laboratory - Chemistry and C hemistry - challengeon 12-23-2023 Albumin [Mass/Vol] 3.2 g/dL Low 3.4-5.0 [facility] Calcium [Mass/Vol] 8.6 mg/dL 8.5-10.1 [facility] Chloride [Moles/Vol] 104 mmol/L 98-107 [facility] CO2 [Moles/Vol] 27.4 mmol/L 21.0-32.0 [facility] Cobalamin (Vitamin B12) [Mass/Vol] 439.0 pg/mL 193.0-986.0 [facility] Creatinine [Mass/Vol] 2.41 mg/dL High 0.70-1.30 [facility] Ferritin [Mass/Vol] 468.0 ng/mL High 26.0-388.0 [facility] GFR/1.73 sq M.predicted MDRD (S/P/Bld) [Vol rate/Area] 32 mL/min/{1.73_m2} Low >=60 [facility] Glucose [Mass/Vol] 177 mg/dL High 74-106 [facility] Iron [Mass/Vol] 54.0 ug/dL Low 65.0-175.0 [facility] Magnesium [Mass/Vol] 2.1 mg/dL 1.8-2.4 [facility] Potassium [Moles/Vol] 4.8 mmol/L 3.5-5.1 [facility] Sodium [Moles/Vol] 137 mmol/L 136-145 [facility] Urate [Mass/Vol] 6.2 mg/dL 3.5-7.2 [facility] Urea nitrogen [Mass/Vol] 44.0 mg/dL High 7.0-18.0 [facility] Urea nitrogen/Creatinine [Mass ratio] 18.3 mg/mg [facility] Laboratory - Urinalysison Protein (U) [Mass/Vol] 129.2 mg/dL High <=11.9 [facility] Leukocytes [#/volume] correc jewel for nucleated erythrocytes in Blood by Automated counon 12-23-2023 WBC corrected for nucl RBC Auto (Bld) [#/Vol] 11.6 10 3/uL High 4.0-11.0 [facility] MCH Auto (RBC) [Entitic mass ]on 12-23-2023 MCH (RBC) [Entitic mass] 29.5 pg 25.9-34.0 [facility] MCHC Auto (RBC) [Mass/Vol]on 12-23-2023 MCHC (RBC) [Mass/Vol] 31.5 g/dL 29.9-35.2 [facility] MCV Auto (RBC) [Entitic vol] on 12-23-2023 MCV (RBC) [Entitic vol] 93.7 fL 80.0-94.0 [facility] No Panel Informationon 12-22 25-Hydroxy Vitamin D Total 28.7 ng/mL [facility] Comment on above: <20 ng/mL Vit D defi cient20-<30 ng/mL Vit D [id number] ng/mL Vit D sufficient>100 ng/mL Potential Toxicity Folate 9.00 ng/mL 8.60-58.90 [facility] Parathyroid Hormone (Intact) 56 pg/mL 15-65 [facility] Comment on above: Performed at: [address] [id number] Director: Alvaro Verde PhD, Phone: [phone] Phosphorus Level 5.2 mg/dL High 2.6-4.7 [facility] Protein Electrophoresis M-Mitesh Not Observed g/dL Not Observed [facility] Protein Electrophoresis Note Comment . [facility] Comment on above: Protein electrophore sis scan will follow via computer,mail, or esthetician permanent makeup artist delivery.Performed at: [facility] [employer] [id number] Director: Alvaro Verde PhD, Phone: [phone] Miscellaneous Test COMMENT . [facility] Comment on above: Test Ordered: [id number] Protein Electro, 24-Hour UrineProtein,Total,Urine 135.6 mg/dL CB Reference Range: Not Estab.Prot,24hr calculated 1932 [H ] mg/24 hr CB Reference Range: 30-150Albumin, U 61.7 % CB Reference Range: .Xadtj-1-Xqswrwhu, U 5.5 % CB Reference Range: .Wdjal-1-Vivmrfkh, U 5.1 % CB Reference Range: .Beta Globulin, U 11.3 % CB Reference Range: .Gamma Globulin, U 16.4 % CB Reference Range: .M-Mitesh, % Note: % CB Not Observed Reference Range: Not ObservedM-Mitesh, mg/24 hr MITER SAW OPERATOR NOLAB Reference Range: .Please note: Comment CB Reference Range: .Protein electrophoresis scan will follow via computer,mail, or esthetician permanent makeup artist delivery.Performed at: [address] [id number] Director: Alvaro Verde PhD, Phone: [phone] Platelet mean volume Auto (B ld) [Entitic vol]on 12-23-2023 Platelet mean volume (Bld) [Entitic vol] 10.1 fL 9.5-13.5 [facility] Platelets Auto (Bld) [#/Vol] on 12-23-2023 Platelets (Bld) [#/Vol] 370 10 3/uL 150-450 [facility] Protein [Mass/time] in 24 ho ur Urineon 12-23-2023 Protein (24H U) [Mass/Time] 1841.1 mg/24hr High <=149.1 [facility] Protein [Mass/volume] in Ser um or Plasmaon 12-23-2023 Protein [Mass/Vol] 7.0 g/dL 6.0-8.5 [facility] RBC Auto (Bld) [#/Vol]on RBC (Bld) [#/Vol] 3.49 10 6/uL Low 4.70-6.10 [facility] Serum globulin measurement ( mass/volume)on 12-23-2023 Globulin (S) [Mass/Vol] 3.6 g/dL 2.2-3.9 [facility] Serum or plasma albumin/glob ulin mass ratioon 12-23-2023 Albumin/Globulin [Mass ratio] 1.0 {ratio} 0.7-1.7 [facility] Serum or plasma alpha 1 glob ulin measurement by electrophoresis (mass/volume)on 12-23-2023 Alpha 1 globulin Elph [Mass/Vol] 0.2 g/dL 0.0-0.4 [facility] Serum or plasma alpha 2 glob ulin measurement by electrophoresis (mass/volume)on 12-23-2023 Alpha 2 globulin Elph [Mass/Vol] 0.9 g/dL 0.4-1.0 [facility] Serum or plasma anion gap de terminationon 12-23-2023 Anion gap [Moles/Vol] 10.4 mmol/L [facility] Serum or plasma beta globuli n measurement by electrophoresis (mass/volume)on 12-23-2023 Beta globulin Elph [Mass/Vol] 1.0 g/dL 0.7-1.3 [facility] Serum or plasma gamma globul in measurement by electrophoresis (mass/volume)on 12-23-2023 Gamma globulin Elph [Mass/Vol] 1.6 g/dL 0.4-1.8 [facility] Serum or plasma immunoelectr ophoresis interpretationon 12-23-2023 Interpretation IEP [Interp] Comment . [facility] Comment on above: No monoclonality det ected. Urine volume measurementon 0 12-23-2023 Specimen volume (U) 1425 mL/24hr [facility] COMPLETE BLOOD COUNTon 10-16 Erythrocyte distribution width (RBC) [Ratio] 16.6 % High 11.5-15.0 [facility] Comment on above: Performed By: #### C BC, RENAL, 13681-1, 3084-1 #### [facility] ([id number]) [address] [place] [address] #### 2731-8, 75334-6 #### [facility] ([id number]) [address], [address] [place] [address] Hematocrit (Bld) [Volume fraction] 24.6 % Low 39-49 [facility] Comment on above: Performed By: #### C BC, RENAL, , 3083-05 #### [facility] ([id number]) [address] [place] [address] #### 2731-8, 15937-0 #### [facility] ([id number]) [address], [address] [place] [address] Hemoglobin (Bld) [Mass/Vol] 8.5 g/dL Low 13.0-17.0 [facility] Comment on above: Performed By: #### Trell BC, RENAL, , 3083-05 #### [facility] ([id number]) [address] [place] [address] 835[address] #### 2731-8, 78759-5 #### [facility] ([id number]) [address], [address] [place] [address] MCH (RBC) [Entitic mass] 29.6 pg Normal 27-34 [facility] Comment on above: Performed By: #### Trell BC, RENAL, , 3083-05 #### [facility] ([id number]) [address] [place] [address] #### 2731-8, 71944-8 #### [facility] ([id number]) [address], [address] [place] [address] MCHC (RBC) [Mass/Vol] 34.5 g/dL Normal 32-36 [facility] Comment on above: Performed By: #### Trell BC, RENAL, , 3083-05 #### [facility] ([id number]) [address] [place] [address] #### 2731-8, 58635-4 #### [facility] ([id number]) [address], [address] [place] [address] MCV (RBC) [Entitic vol] 86 fL Normal 80-100 [facility] Comment on above: Performed By: #### C BC, RENAL, , 3083-05 #### [facility] ([id number]) [address] [place] [address] #### 2731-8, 31124-0 #### [facility] ([id number]) [address], [address] [place] [address] Platelet mean volume (Bld) [Entitic vol] 7.7 fL Normal 7-12 [facility] Comment on above: Performed By: #### C BC, RENAL, , 3083-05 #### [facility] ([id number]) [address] [place] [address] #### 2731-8, 23282-9 #### [facility] ([id number]) [address], [address] [place] [address] Platelets (Bld) [#/Vol] 344 10*3/uL Normal 150-450 [facility] Comment on above: Performed By: #### C BC, RENAL, , 3083-05 #### [facility] ([id number]) [address] [place] [address] #### 2731-8, 44028-6 #### [facility] ([id number]) [address], [address] [place] [address] RBC COUNT 2.87 X10E12/L Low 4.10-5.70 [facility] Comment on above: Performed By: #### C BC, RENAL, , 3083-05 #### [facility] ([id number]) [address] [place] [address] #### 2731-8, 47350-6 #### [facility] ([id number]) [address], [address] [place] [address] WBC (Bld) [#/Vol] 14.1 10*3/uL High 4.0-11.0 [facility] Comment on above: Performed By: #### C BC, RENAL, , 3083-05 #### [facility] ([id number]) [address] [place] [address] 892[address] #### 2731-8, 90959-4 #### [facility] ([id number]) [address], [address] [place] [address] MAGNESIUMon 10-17-2023 Magnesium [Mass/Vol] 1.9 mg/dL Normal 1.8-2.6 [facility] Comment on above: Performed By: #### C BC, RENAL, , 3083-05 #### [facility] ([id number]) [address] [place] [address] #### 2731-8, 15040-2 #### [facility] ([id number]) [address], [address] [place] [address] PROTEIN CREAT RATIOon 2023 RANDOM URINE PROTEIN 9750 mg/L High <120 [facility] Comment on above: Performed By: #### C BCA, CMP, , 2771 #### [facility] ([id number]) [address] [place] [address] U/PRO/TOBACCO DRIER OPERATOR RATIO CALC 7.49 High <0.2 [facility] Comment on above: Result Comment: Neph rotic Syndrome is associated with ratios >3.5 Performed By: #### C BCA, CMP, , 2776-05 #### [facility] ([id number]) [address] [place] [address] URINE CREATININE,RDM 130.22 mg/dL Normal [facility] Comment on above: Performed By: #### C BCA, CMP, , 2776-05 #### [facility] ([id number]) [address] [place] [address] Parathyrin.intact [Mass/Vol] on 10-17-2023 PTH INTACT 55 pg/mL Normal - [facility] Comment on above: Performed By: #### C BC, RENAL, , 3083-05 #### [facility] ([id number]) [address] [place] [address] #### 2731-8, 74877-4 #### [facility] ([id number]) [address], [address] [place] [address] RENAL PANELon 10-17-2023 Albumin [Mass/Vol] 2.7 g/dL Low 3.2-5.3 [facility] Comment on above: Performed By: #### C HIGINIO, RENAL, , 3083-05 #### [facility] ([id number]) [address] [place] [address] #### 2731-8, 46489-2 #### [facility] ([id number]) [address], [address] [place] [address] Anion gap [Moles/Vol] 5 mmol/L Normal 5-15 [facility] Comment on above: Performed By: #### C BC, RENAL, , 3083-05 #### [facility] ([id number]) [address] [place] [address] 12[address] #### 2731-8, 78625-7 #### [facility] ([id number]) [address] [facility] [place] [address] Calcium [Mass/Vol] 7.9 mg/dL Low 8.5-10.5 [facility] Comment on above: Performed By: #### C BC, RENAL, , 3083-05 #### [facility] ([id number]) [address] [place] [address] #### 2731-8, 56891-7 #### [facility] ([id number]) [address] [facility] [place] [address] Chloride [Moles/Vol] 109 mmol/L Normal 98-109 [facility] Comment on above: Performed By: #### C BC, RENAL, , 3083-05 #### [facility] ([id number]) [address] [place] [address] 815[address] #### 2731-8, 07977-7 #### [facility] ([id number]) [address] [facility] [place] [address] CO2 [Moles/Vol] 23 mmol/L Normal 22-32 [facility] Comment on above: Performed By: #### Trell BC, RENAL, , 3083-05 #### [facility] ([id number]) [address] [place] [address] #### 2731-8, 78779-4 #### [facility] ([id number]) [address] [facility] [place] [address] Creatinine [Mass/Vol] 1.22 mg/dL High 0.70-1.20 [facility] Comment on above: Result Comment: METH OD TRACEABLE TO IDMS STANDARD Performed By: #### Trell BC, RENAL, , 3083-05 #### [facility] ([id number]) [address] [place] [address] 15[address] #### 2731-8, 98684-8 #### [facility] ([id number]) [address] [facility] [place] [address] GFR/1.73 sq M.predicted among non-blacks MDRD (S/P/Bld) [Vol rate/Area] 63 mL/min/{1.73_m2} Normal >59 [facility] Comment on above: Result Comment: Reported eGFR is based on the CKD-EPI 2020 equation that does not use a race coefficient. Performed By: #### Trell SYLVESTER, RENAL, , 30808-24 #### [facility] ([id number]) [address] [place] [address] #### 2731-8, 30282-4 #### [facility] ([id number]) [address] [place] [address] Glucose [Mass/Vol] 149 mg/dL High 65-99 [facility] Comment on above: Performed By: #### Trell SYLVESTER, RENAL, , 3083-05 #### [facility] ([id number]) [address] [place] [address] 86054 #### 2731-8, 62978-0 #### [facility] ([id number]) [address] [facility] [place] [address] Phosphate [Mass/Vol] 4.7 mg/dL Normal 2.4-4.9 [facility] Comment on above: Performed By: #### Trell SYLVESTER, RENAL, , 3081 #### [facility] ([id number]) [address] [place] [address] 87992 #### 2731-8, 61657-2 #### [facility] ([id number]) [address] [place] [address] Potassium [Moles/Vol] 3.8 mmol/L Normal 3.5-5.0 [facility] Comment on above: Performed By: #### Trell SYLVESTER, RENAL, , 3083-05 #### [facility] ([id number]) [address] [place] [address] 83526 #### 2731-8, 01133-5 #### [facility] ([id number]) [address] [facility] [place] [address] Sodium [Moles/Vol] 137 mmol/L Normal 134-146 [facility] Comment on above: Performed By: #### Trell SYLVESTER, RENAL, , 3083-05 #### [facility] ([id number]) [address] [place] [address] 99162 #### 2731-8, 47517-6 #### [facility] ([id number]) [address] [facility] [place] [address] Urea nitrogen [Mass/Vol] 23 mg/dL Normal 5-27 [facility] Comment on above: Performed By: #### Trell SYLVESTER, RENAL, , 3083-05 #### [facility] ([id number]) [address] [place] [address] 10837 #### 2731-8, 22837-2 #### [facility] ([id number]) [address] [facility] [place] [address] URIC ACIDon 10-17-2023 Urate [Mass/Vol] 6.1 mg/dL Normal 2.6-7.2 [facility] Comment on above: Performed By: #### Trell BC, RENAL, , 3083-05 #### [facility] ([id number]) [address] [place] [address] 38235 #### 2731-8, 59763-0 #### [facility] ([id number]) [address] [place] [address], [address] [place] [address] URINALYSISon 10-17-2023 Bilirubin Ql (U) Negative Normal NEG [facility] Comment on above: Performed By: #### C GODFREY, CMP, , 2776-05 #### [facility] ([id number]) [address] [place] [address] 73799 BLOOD/HGB MODERATE Abnormal NEG [facility] Comment on above: Performed By: #### Trell DONAHUE, CMP, , 2776-05 #### [facility] ([id number]) [address] [place] [address] 38907 Color (U) YELLOW Normal YELLOW [facility] Comment on above: Performed By: #### Trell BCA, CMP, , 2776-05 #### [facility] ([id number]) [address] [place] [address] 88354 Glucose Ql (U) 100 mg/dL Abnormal NEG [facility] Comment on above: Performed By: #### Trell DONAHUE, CMP, , 2776-05 #### [facility] ([id number]) [address] [place] [address] 32885 Hyaline casts LM Ql (Urine sed) 0 to 2 Normal 0-2 [facility] Comment on above: Performed By: #### C BCA, CMP, , 2776-05 #### [facility] ([id number]) [address] [place] [address] 73395 Ketones Ql (U) Negative Normal NEG [facility] Comment on above: Performed By: #### Trell BCA, CMP, , 2776-05 #### [facility] ([id number]) [address] [place] [address] 48149 Leukocyte esterase Test strip Ql (U) Negative Normal NEG [facility] Comment on above: Performed By: #### C GODRFEY CMP, , 2776-05 #### [facility] ([id number]) [address] [place] [address] 71378 Nitrite Ql (U) Negative Normal NEG [facility] Comment on above: Performed By: #### C GODFREY CMP, , 2776-05 #### [facility] ([id number]) [address] [place] [address] 81424 pH (U) 6.0 [pH] Normal 5.0-8.5 [facility] Comment on above: Performed By: #### C GODFREY CMP, , 2776-05 #### [facility] ([id number]) [address] [place] [address] 12646 Protein Ql (U) >300 Abnormal NEG [facility] Comment on above: Performed By: #### C GODFREY CMP, , 2776-05 #### [facility] ([id number]) [address] [place] [address] 35671 R.B.CELLS 5 to 10 Normal 0-5 [facility] Comment on above: Performed By: #### C GODFREY CMP, , 2776-05 #### [facility] ([id number]) [address] [place] [address] 69116 Specific gravity (U) [Rel density] 1.025 Normal 1.003-1.035 [facility] Comment on above: Performed By: #### C GODFREY CMP, , 2776-05 #### [facility] ([id number]) [address] [place] [address] 49250 SQUAMOUS EPITHELIUM 2 to 5 Normal 0-5 [facility] Comment on above: Performed By: #### C GODFREY CMP, , 2776-05 #### [facility] ([id number]) [address] [place] [address] 17456 TURBIDITY CLEAR Normal CLEAR [facility] Comment on above: Performed By: #### C BCA, CMP, , 2776-05 #### [facility] ([id number]) [address] [place] [address] 42237 Urobilinogen Qn (U) 0.2 {Bushra'U}/dL Normal <1.1 [facility] Comment on above: Performed By: #### C BCA, CMP, , 2776-05 #### [facility] ([id number]) [address] [place] [address] 92857 W.B.CELLS 2 to 5 Normal 0-5 [facility] Comment on above: Performed By: #### C BCA, CMP, , 2776-05 #### [facility] ([id number]) [address] [place] [address] 68570 Vitamin D+Metabolites [Mass/ Vol]on 10-17-2023 VITAMIN D 25 HYD TOT 19.9 ng/mL Low 30-100 [facility] Comment on above: Result Comment: Vitamin D status 25 [place] Vitamin D Deficiency <20 ng/mL Insufficiency 20-29 ng/mL Sufficiency 30-100 ng/mL Toxicity >100 ng/mL NOTE: A pediatric reference range has not been established by the precision layout worker of this kit. The [place] recommends a Vitamin D level of = or >20ng/mL in infants and children. Performed By: #### C BC, RENAL, , 308- #### [facility] ([id number]) [address] [place] [address] 21950 #### 2731-8, 51227-4 #### [facility] ([id number]) [address] [facility], [address] [place] [address] Laboratory - Chemistry and C hemistry - challengeon 09-29-2023 Albumin [Mass/Vol] 2.4 g/dL [facility] ALP [Catalytic activity/Vol] 66 U/L [facility] ALT [Catalytic activity/Vol] 13 U/L [facility] AST [Catalytic activity/Vol] 16 U/L [facility] Bilirubin [Mass/Vol] 0.5 mg/dL [facility] Calcium [Mass/Vol] 8.0 mg/dL [facility] Chloride [Moles/Vol] 108 mmol/L [facility] CO2 [Moles/Vol] 19 mmol/L [facility] Creatinine [Mass/Vol] 1.12 mg/dL [facility] Glucose [Mass/Vol] 164 mg/dL [facility] Potassium [Moles/Vol] 5.2 mmol/L [facility] Protein [Mass/Vol] 5.6 g/dL [facility] Sodium [Moles/Vol] 136 mmol/L [facility] Urea nitrogen [Mass/Vol] 39 mg/dL [facility] No Panel Informationon 09-28 Estimated GFR (Non- 70 mL/min [facility] 164 mg/dL [facility] 39 mg/dL [facility] 1.12 mg/dL [facility] 136 mmol/L [facility] 5.2 mmol/L [facility] 108 mmol/L [facility] 19 mmol/L [facility] 8.0 mg/dL [facility] 5.6 g/dL [facility] 2.4 g/dL [facility] 0.5 mg/dL [facility] 16 U/L [facility] 13 U/L [facility] 66 U/L [facility] 70 mL/min [facility] Bedside Glucose 132 [facility] 132 [facility] CBC AND AUTO DIFFon 09-26-19 24 ABSOLUTE BASOPHIL 0.1 X10E9/L Normal 0.0-0.2 [facility] Comment on above: Performed By: #### C GODFREY CMP, , 2776-05 #### [facility] ([id number]) [address] [place] [address] 34016 ABSOLUTE NEUTROPHIL 7.4 X10E9/L High 1.5-6.6 [facility] Comment on above: Performed By: #### C GODFREY, CMP, , 2776-05 #### [facility] ([id number]) [address] [place] [address] 86476 Basophils/100 WBC (Bld) 1.2 % Normal [facility] Comment on above: Performed By: #### Trell DONAHUE CMP, , 2776-05 #### [facility] ([id number]) [address] [place] [address] 36844 Eosinophils (Bld) [#/Vol] 0.3 10*3/uL Normal 0.0-0.4 [facility] Comment on above: Performed By: #### Trell DONAHUE, CMP, , 2776-05 #### [facility] ([id number]) [address] [place] [address] 58848 Eosinophils/100 WBC (Bld) 3.0 % Normal [facility] Comment on above: Performed By: #### C GODFREY, CMP, , 2776-05 #### [facility] ([id number]) [address] [place] [address] 71596 Erythrocyte distribution width (RBC) [Ratio] 17.4 % High 11.5-15.0 [facility] Comment on above: Performed By: #### Trell DONAHUE, CMP, , 2776-05 #### [facility] ([id number]) [address] [place] [address] 63542 Hematocrit (Bld) [Volume fraction] 29.1 % Low 39-49 [facility] Comment on above: Performed By: #### Trell DONAHUE CMP, , 2776-05 #### [facility] ([id number]) [address] [place] [address] 34741 Hemoglobin (Bld) [Mass/Vol] 9.8 g/dL Low 13.0-17.0 [facility] Comment on above: Performed By: #### C ELENITA DONAHUE, , 2776-05 #### [facility] ([id number]) [address] [place] [address] 68120 Lymphocytes (Bld) [#/Vol] 1.6 10*3/uL Normal 1.0-3.5 [facility] Comment on above: Performed By: #### Trell DONAHUE [facility], , 2776-05 #### [facility] ([id number]) [address] [place] [address] 85077 Lymphocytes/100 WBC (Bld) 15.6 % Normal [facility] Comment on above: Performed By: #### Trell DONAHUE CMP, , 2776-05 #### [facility] ([id number]) [address] [place] [address] 88575 MCH (RBC) [Entitic mass] 30.1 pg Normal 27-34 [facility] Comment on above: Performed By: #### Trell DONAHUE CMP, , 2776-05 #### [facility] ([id number]) [address] [place] [address] 86345 MCHC (RBC) [Mass/Vol] 33.7 g/dL Normal 32-36 [facility] Comment on above: Performed By: #### Trell DONAHUE CMP, , 2776-05 #### [facility] ([id number]) [address] [place] [address] 72803 MCV (RBC) [Entitic vol] 90 fL Normal 80-100 [facility] Comment on above: Performed By: #### Trell DONAHUE, CMP, , 2776-05 #### [facility] ([id number]) [address] [place] [address] 00694 Monocytes (Bld) [#/Vol] 0.8 10*3/uL Normal 0-0.9 [facility] Comment on above: Performed By: #### Trell DONAHUE, CMP, , 2776-05 #### [facility] ([id number]) [address] [place] [address] 08947 Monocytes/100 WBC (Bld) 7.5 % Normal [facility] Comment on above: Performed By: #### Trell DONAHUE, CMP, , 2776-05 #### [facility] ([id number]) [address] [place] [address] 16871 Neutrophils/100 WBC (Bld) 72.7 % Normal [facility] Comment on above: Performed By: #### Trell BCA, CMP, , 2776-05 #### [facility] ([id number]) [address] [place] [address] 89477 Platelet mean volume (Bld) [Entitic vol] 8.5 fL Normal 7-12 [facility] Comment on above: Performed By: #### Trell BCA, CMP, , 2776-05 #### [facility] ([id number]) [address] [place] [address] 85006 Platelets (Bld) [#/Vol] 292 10*3/uL Normal 150-450 [facility] Comment on above: Performed By: #### Trell BCA, CMP, , 2776-05 #### [facility] ([id number]) [address] [place] [address] 16704 RBC COUNT 3.25 X10E12/L Low 4.10-5.70 [facility] Comment on above: Performed By: #### C BCA, CMP, , 2776-05 #### [facility] ([id number]) [address] [place] [address] 98210 WBC (Bld) [#/Vol] 10.1 10*3/uL Normal 4.0-11.0 [facility] Comment on above: Performed By: #### C BCA, CMP, , 2776-05 #### [facility] ([id number]) [address] [place] [address] 37124 COMPREHENSIVE METABOLIC PANE Neil 09-26-2023 Albumin [Mass/Vol] 2.4 g/dL Low 3.2-5.3 [facility] Comment on above: Performed By: #### C BCA, CMP, , 2776-05 #### [facility] ([id number]) [address] [place] [address] 63584 ALP [Catalytic activity/Vol] 66 U/L Normal 39-130 [facility] Comment on above: Performed By: #### C BCA, CMP, , 2776-05 #### [facility] ([id number]) [address] [place] [address] 42616 ALT [Catalytic activity/Vol] 13 U/L Normal 0-40 [facility] Comment on above: Performed By: #### C BCA, CMP, , 2776-05 #### [facility] ([id number]) [address] [place] [address] 74201 Anion gap [Moles/Vol] 9 mmol/L Normal 5-15 [facility] Comment on above: Performed By: #### C BCA, CMP, , 2776-05 #### [facility] ([id number]) [address] [place] [address] 07322 AST [Catalytic activity/Vol] 16 U/L Normal 0-41 [facility] Comment on above: Performed By: #### C BCA, CMP, , 2776-05 #### [facility] ([id number]) [address] [place] [address] 22154 Bilirubin [Mass/Vol] 0.5 mg/dL Normal 0.3-1.2 [facility] Comment on above: Performed By: #### C BCA, CMP, , 2776-05 #### [facility] ([id number]) [address] [place] [address] 88126 Calcium [Mass/Vol] 8.0 mg/dL Low 8.5-10.5 [facility] [place] Comment on above: Performed By: #### C BCA, CMP, , 2776-05 #### [facility] ([id number]) [address] [place] [address] 79936 Chloride [Moles/Vol] 108 mmol/L Normal 98-109 [facility] Comment on above: Performed By: #### C BCA, CMP, , 2776-05 #### [facility] ([id number]) [address] [place] [address] 36921 CO2 [Moles/Vol] 19 mmol/L Low 22-32 [facility] Comment on above: Performed By: #### C BCA, CMP, , 2776-05 #### [facility] ([id number]) [address] [place] [address] 32071 Creatinine [Mass/Vol] 1.12 mg/dL Normal 0.70-1.20 [facility] Comment on above: Result Comment: METH OD TRACEABLE TO IDMS STANDARD Performed By: #### C BCA, CMP, , 2776-05 #### [facility] ([id number]) [address] [place] [address] 36846 GFR/1.73 sq M.predicted among non-blacks MDRD (S/P/Bld) [Vol rate/Area] 70 mL/min/{1.73_m2} Normal >59 [facility] Comment on above: Result Comment: Reported eGFR is based on the CKD-EPI 2020 equation that does not use a race coefficient. Performed By: #### C ELENITA DONAHUE, , 2776-05 #### [facility] ([id number]) [address] [place] [address] 04229 Glucose [Mass/Vol] 164 mg/dL High 65-99 [facility] [place] Comment on above: Performed By: #### C ELENITA DONAHUE, , 2776-05 #### [facility] ([id number]) [address] [place] [address] 47577 Potassium [Moles/Vol] 5.2 mmol/L High 3.5-5.0 [facility] Comment on above: Performed By: #### C ELENITA DONAHUE, 2776-05 #### [facility] ([id number]) [address] [place] [address] 79023 Protein [Mass/Vol] 5.6 g/dL Low 6.0-8.0 [facility] [place] Comment on above: Performed By: #### C ELENITA DONAHUE, , 2776-05 #### [facility] ([id number]) [address] [place] [address] 74252 Sodium [Moles/Vol] 136 mmol/L Normal 134-146 [facility], [place] Comment on above: Performed By: #### C ELENITA DONAHUE, 2776-05 #### [facility] ([id number]) [address] [place] [address] Urea nitrogen [Mass/Vol] 39 mg/dL High 5-27 [facility] Comment on above: Performed By: #### C BCA, CMP, 05668-6, 2777-1 #### [facility] ([id number]) [address] [place] [address] MAGNESIUMon 09-26-2023 Magnesium [Mass/Vol] 1.8 mg/dL Normal 1.8-2.6 [facility] Comment on above: Performed By: #### C BCA, CMP, , 2777-1 #### [facility] ([id number]) [address] [place] [address] PHOSPHORUSon 09-26-2023 Phosphate [Mass/Vol] 5.2 mg/dL High 2.4-4.9 [facility] Comment on above: Performed By: #### C BCA, CMP, , 2777-1 #### [facility] ([id number]) [address] [place] [address] 36on 09-23-2023 36 We are not his prima ry care team. He was seen at [facility]. He either needs to call his PCP or call [facility]. Normal [facility] BASIC METABOLIC PANELon 08-25 Anion gap [Moles/Vol] 11 mmol/L Normal 7-20 [facility] Comment on above: Performed By: #### L [id number] #### [facility] (BEAKER) [address] [place] [address] Calcium [Mass/Vol] 8.1 mg/dL Low 8.6-10.3 [facility] Comment on above: Performed By: #### L [id number] #### [facility] ([facility]) [address] [place] [address] Chloride [Moles/Vol] 110 mmol/L High 98-107 [facility] Comment on above: Performed By: #### L [id number] #### [facility] ([facility]) [address] [place] [address] CO2 [Moles/Vol] 21 mmol/L Normal 21-31 [facility] Comment on above: Performed By: #### L [id number] #### [facility] ([facility]) [address] [place] [address] Creatinine [Mass/Vol] 1.04 mg/dL Normal 0.70-1.30 [facility] Comment on above: Performed By: #### L [id number] #### [facility] ([facility]) [address] [place] [address] GLOMERULAR FILTRATION RATE ML/MIN/1.73 SQ M.PREDICTED 76.8 mL/min/1.73m*2 Normal >60.0 [facility] Comment on above: Result Comment: The [facility]???s estimated glomerular filtration rate (eGFR) will no longer include consideration of race in its calculation. The National Kidney Foundation???s eGFR Task Force developed new recommendations for the estimation of the glomerular filtration rate in the [place] They recommend immediate implementation of the new equation refit without the race variable in all laboratories because the calculation does not include race. In addition to not including race in the calculation and reporting, it included diversity in its development, and has acceptable performance characteristics and potential consequences that do not disproportionately affect any one group of individuals. Performed By: #### L [id number] #### [facility] ([facility]) [address] [place] [address] Glucose [Mass/Vol] 78 mg/dL Normal 70-100 [facility] Comment on above: Performed By: #### L [id number] #### [facility] ([facility]) [address] [place] [address] Potassium [Moles/Vol] 4.6 mmol/L Normal 3.5-5.1 [facility] Comment on above: Performed By: #### L [id number] #### [facility] ([facility]) [address] [place] [address] Sodium [Moles/Vol] 137 mmol/L Normal 136-145 [facility] Comment on above: Performed By: #### L [id number] #### [facility] ([facility]) [address] [place] [address] Urea nitrogen [Mass/Vol] 30 mg/dL High 7-25 [facility] Comment on above: Performed By: #### L [id number] #### [facility] ([facility]) [address] [place] [address] UREA NITROGEN/CREATININE (MASS RATIO) IN SER/PLAS 28.8 Normal [facility] Comment on above: Performed By: #### L [id number] #### [facility] [address] [place] [address] CBCon 09-21-2023 Erythrocyte distribution width (RBC) [Ratio] 16.4 % High 11.5-15.0 [facility] Comment on above: Performed By: #### L [id number] #### [facility] ([facility]) [address] [place] [address] ERYTHROCYTE MEAN CORPUSCULAR HEMOGLOBIN CONCENTRATION (G/DL) BY AUTOMATED 32.3 g/dL Normal 32.0-35.0 [facility] Comment on above: Performed By: #### L [id number] #### [facility] [address] [place] [address] Hematocrit (Bld) [Volume fraction] 29.4 % Low 39.0-55.0 [facility] Comment on above: Performed By: #### L [id number] #### [facility] [address] [place] [address] Hemoglobin (Bld) [Mass/Vol] 9.5 g/dL Low 13.0-17.0 [facility] Comment on above: Performed By: #### L [id number] #### [facility] [address] [place] [address] MCH (RBC) [Entitic mass] 29.0 pg Normal 27.0-33.0 [facility] Comment on above: Performed By: #### L [id number] #### [facility] [address] [place] [address] MCV (RBC) [Entitic vol] 89.6 fL Normal 82.0-98.0 [facility] Comment on above: Performed By: #### L [id number] #### [facility] ([facility]) [address] [place] [address] PLATELETS (10*3/UL) IN BLOOD AUTOMATED COUNT 452 10*3/uL High 150-400 [facility] Comment on above: Performed By: #### L [id number] #### [facility] ([facility]) [address] [place] [address] RBC (Bld) [#/Vol] 3.28 10*6/uL Low 4.20-5.70 [facility] Comment on above: Performed By: #### L [id number] #### [facility] ([facility]) [address] [place] [address] WBC (Bld) [#/Vol] 9.80 10*3/uL Normal 4.00-10.60 [facility] Comment on above: Performed By: #### L [id number] #### [facility] ([facility]) [address] [place] [address] MAGNESIUMon 09-21-2023 Magnesium [Mass/Vol] 1.8 mg/dL Low 1.9-2.7 [facility] Comment on above: Performed By: #### L [id number] #### [facility] ([facility]) [address] [place] [address] PHOSPHORUSon 09-21-2023 Magnesium [Mass/Vol] 5.1 mg/dL High 2.5-5.0 [facility] Comment on above: Performed By: #### L [id number] #### [facility] ([facility]) [address] [place] [address] BASIC METABOLIC PANELon 08-25 Anion gap [Moles/Vol] 14 mmol/L Normal 7-20 [facility] Comment on above: Performed By: #### L [id number] #### [facility] ([facility]) [address] [place] [address] Calcium [Mass/Vol] 8.0 mg/dL Low 8.6-10.3 [facility] Comment on above: Performed By: #### L [id number] #### [facility] ([facility]) [address] [place] [address] Chloride [Moles/Vol] 108 mmol/L High 98-107 [facility] Comment on above: Performed By: #### L [id number] #### [facility] [address] [place] [address] CO2 [Moles/Vol] 19 mmol/L Low 21-31 [facility] Comment on above: Performed By: #### L [id number] #### [facility] ([facility]) [address] [place] [address] Creatinine [Mass/Vol] 1.27 mg/dL Normal 0.70-1.30 [facility] Comment on above: Performed By: #### L [id number] #### [facility] ([facility]) [address] [place] [address] GLOMERULAR FILTRATION RATE ML/MIN/1.73 SQ M.PREDICTED 60.4 mL/min/1.73m*2 Normal >60.0 [facility] Comment on above: Result Comment: The [facility]???s estimated glomerular filtration rate (eGFR) will no longer include consideration of race in its calculation. The National Kidney Foundation???s eGFR Task Force developed new recommendations for the estimation of the glomerular filtration rate in the [place] They recommend immediate implementation of the new equation refit without the race variable in all laboratories because the calculation does not include race. In addition to not including race in the calculation and reporting, it included diversity in its development, and has acceptable performance characteristics and potential consequences that do not disproportionately affect any one group of individuals. Performed By: #### L [id number] #### [facility] ([facility] [address] [place] [address] Glucose [Mass/Vol] 66 mg/dL Low 70-100 [facility] Comment on above: Performed By: #### L [id number] #### [facility] ([facility]) [address] [place] [address] Potassium [Moles/Vol] 4.6 mmol/L Normal 3.5-5.1 [facility] Comment on above: Performed By: #### L [id number] #### [facility] ([facility]) [address] [place] [address] Sodium [Moles/Vol] 136 mmol/L Normal 136-145 [facility] Comment on above: Performed By: #### L [id number] #### [facility] ([facility]) [address] [place] [address] Urea nitrogen [Mass/Vol] 34 mg/dL High 7-25 [facility] Comment on above: Performed By: #### L [id number] #### [facility] ([facility]) [address] [place] [address] UREA NITROGEN/CREATININE (MASS RATIO) IN SER/PLAS 26.8 Normal [facility] Comment on above: Performed By: #### L [id number] #### [facility] ([facility]) [address] [place] [address] CBCon 09-20-2023 Erythrocyte distribution width (RBC) [Ratio] 16.9 % High 11.5-15.0 [facility] Comment on above: Performed By: #### L [id number] #### [facility] ([facility]) [address] [place] [address] ERYTHROCYTE MEAN CORPUSCULAR HEMOGLOBIN CONCENTRATION (G/DL) BY AUTOMATED 32.4 g/dL Normal 32.0-35.0 [facility] Comment on above: Performed By: #### L [id number] #### [facility] ([facility]) [address] [place] [address] Hematocrit (Bld) [Volume fraction] 28.4 % Low 39.0-55.0 [facility] Comment on above: Performed By: #### L [id number] #### [facility] ([facility]) [address] [place] [address] Hemoglobin (Bld) [Mass/Vol] 9.2 g/dL Low 13.0-17.0 [facility] Comment on above: Performed By: #### L [id number] #### [facility] ([facility]) [address] [place] [address] MCH (RBC) [Entitic mass] 29.7 pg Normal 27.0-33.0 [facility] Comment on above: Performed By: #### L [id number] #### [facility] ([facility]) [address] [place] [address] MCV (RBC) [Entitic vol] 91.6 fL Normal 82.0-98.0 [facility] Comment on above: Performed By: #### L [id number] #### [facility] ([facility]) [address] [place] [address] PLATELETS (10*3/UL) IN BLOOD AUTOMATED COUNT 495 10*3/uL High 150-400 [facility] Comment on above: Performed By: #### L [id number] #### [facility] ([facility]) [address] [place] [address] RBC (Bld) [#/Vol] 3.10 10*6/uL Low 4.20-5.70 [facility] Comment on above: Performed By: #### L [id number] #### [facility] ([facility]) [address] [place] [address] WBC (Bld) [#/Vol] 10.08 10*3/uL Normal 4.00-10.60 [facility] Comment on above: Performed By: #### L [id number] #### [facility] ([facility]) [address] [place] [address] MAGNESIUMon 09-20-2023 Magnesium [Mass/Vol] 1.8 mg/dL Low 1.9-2.7 [facility] Comment on above: Performed By: #### L [id number] #### [facility] [address] [place] [address] PHOSPHORUSon 09-20-2023 Magnesium [Mass/Vol] 5.3 mg/dL High 2.5-5.0 [facility] Comment on above: Performed By: #### L [id number] #### [facility] [address] [place] [address] BASIC METABOLIC PANELon 08-25 Anion gap [Moles/Vol] 14 mmol/L Normal 7-20 [facility] Comment on above: Performed By: #### L [id number] #### [facility] ([facility]) [address] [place] [address] Calcium [Mass/Vol] 8.1 mg/dL Low 8.6-10.3 [facility] Comment on above: Performed By: #### L [id number] #### [facility] ([facility]) [address] [place] [address] Chloride [Moles/Vol] 109 mmol/L High 98-107 [facility] Comment on above: Performed By: #### L [id number] #### [facility] ([facility]) [address] [place] [address] CO2 [Moles/Vol] 21 mmol/L Normal 21-31 [facility] Comment on above: Performed By: #### L [id number] #### [facility] [address] [place] [address] Creatinine [Mass/Vol] 1.37 mg/dL High 0.70-1.30 [facility] Comment on above: Performed By: #### L [id number] #### [facility] ([facility] [address] [place] [address] GLOMERULAR FILTRATION RATE ML/MIN/1.73 SQ M.PREDICTED 55.1 mL/min/1.73m*2 Low >60.0 [facility] Comment on above: Result Comment: The [facility]???s estimated glomerular filtration rate (eGFR) will no longer include consideration of race in its calculation. The National Kidney Foundation???s eGFR Task Force developed new recommendations for the estimation of the glomerular filtration rate in the [place] They recommend immediate implementation of the new equation refit without the race variable in all laboratories because the calculation does not include race. In addition to not including race in the calculation and reporting, it included diversity in its development, and has acceptable performance characteristics and potential consequences that do not disproportionately affect any one group of individuals. Performed By: #### L [id number] #### [facility] ([facility]) [address] [place] [address] Glucose [Mass/Vol] 45 mg/dL Invalid Interpretation Code 70-100 [facility] Comment on above: Performed By: #### L [id number] #### [facility] ([facility]) [address] [place] [address] Potassium [Moles/Vol] 4.5 mmol/L Normal 3.5-5.1 [facility] Comment on above: Performed By: #### L [id number] #### [facility] ([facility]) [address] [place] [address] Sodium [Moles/Vol] 139 mmol/L Normal 136-145 [facility] Comment on above: Performed By: #### L [id number] #### [facility] ([facility]) [address] [place] [address] Urea nitrogen [Mass/Vol] 35 mg/dL High 7-25 [facility] Comment on above: Performed By: #### L [id number] #### [facility] [address] [place] [address] UREA NITROGEN/CREATININE (MASS RATIO) IN SER/PLAS 25.5 Normal [facility] Comment on above: Performed By: #### L [id number] #### [facility] ([facility]AK[facility]) [address] [place] [address] CBCon 09-19-2023 Erythrocyte distribution width (RBC) [Ratio] 17.1 % High 11.5-15.0 [facility] Comment on above: Performed By: #### L [id number] #### [facility] ([facility] [address] [place] [address] ERYTHROCYTE MEAN CORPUSCULAR HEMOGLOBIN CONCENTRATION (G/DL) BY AUTOMATED 31.9 g/dL Low 32.0-35.0 [facility] Comment on above: Performed By: #### L [id number] #### [facility] ([facility]) [address] [place] [address] Hematocrit (Bld) [Volume fraction] 28.8 % Low 39.0-55.0 [facility] Comment on above: Performed By: #### L [id number] #### [facility] ([facility]) [address] [place] [address] Hemoglobin (Bld) [Mass/Vol] 9.2 g/dL Low 13.0-17.0 [facility] Comment on above: Performed By: #### L [id number] #### [facility] ([facility]) [address] [place] [address] MCH (RBC) [Entitic mass] 29.6 pg Normal 27.0-33.0 [facility] Comment on above: Performed By: #### L [id number] #### [facility] ([facility]) [address] [place] [address] MCV (RBC) [Entitic vol] 92.6 fL Normal 82.0-98.0 [facility] Comment on above: Performed By: #### L [id number] #### [facility] [address] [place] [address] PLATELETS (10*3/UL) IN BLOOD AUTOMATED COUNT 512 10*3/uL High 150-400 [facility] Comment on above: Performed By: #### L [id number] #### [facility] [address] [place] [address] RBC (Bld) [#/Vol] 3.11 10*6/uL Low 4.20-5.70 [facility] Comment on above: Performed By: #### L [id number] #### [facility] ([facility]) [address] [place] [address] WBC (Bld) [#/Vol] 9.83 10*3/uL Normal 4.00-10.60 [facility] Comment on above: Performed By: #### L [id number] #### [facility] ([facility]) [address] [place] [address] MAGNESIUMon 09-19-2023 Magnesium [Mass/Vol] 1.9 mg/dL Normal 1.9-2.7 [facility] Comment on above: Performed By: #### L [id number] #### [facility] ([facility]) [address] [place] [address] PHOSPHORUSon 09-19-2023 Magnesium [Mass/Vol] 5.2 mg/dL High 2.5-5.0 [facility] Comment on above: Performed By: #### L [id number] #### [facility] ([facility]) [address] [place] [address] BASIC METABOLIC PANELon 08-25 Anion gap [Moles/Vol] 11 mmol/L Normal 7-20 [facility] Comment on above: Performed By: #### L [id number] #### [facility] ([facility]) [address] [place] [address] Calcium [Mass/Vol] 8.2 mg/dL Low 8.6-10.3 [facility] Comment on above: Performed By: #### L [id number] #### [facility] ([facility]) [address] [place] [address] Chloride [Moles/Vol] 109 mmol/L High 98-107 [facility] Comment on above: Performed By: #### L [id number] #### [facility] ([facility]) [address] [place] [address] CO2 [Moles/Vol] 20 mmol/L Low 21-31 [facility] Comment on above: Performed By: #### L [id number] #### [facility] ([facility]) [address] [place] [address] Creatinine [Mass/Vol] 1.30 mg/dL Normal 0.70-1.30 [facility] Comment on above: Performed By: #### L [id number] #### [facility] ([facility]) [address] [place] [address] GLOMERULAR FILTRATION RATE ML/MIN/1.73 SQ M.PREDICTED 58.7 mL/min/1.73m*2 Low >60.0 [facility] Comment on above: Result Comment: The [facility]???s estimated glomerular filtration rate (eGFR) will no longer include consideration of race in its calculation. The National Kidney Foundation???s eGFR Task Force developed new recommendations for the estimation of the glomerular filtration rate in the [place] They recommend immediate implementation of the new equation refit without the race variable in all laboratories because the calculation does not include race. In addition to not including race in the calculation and reporting, it included diversity in its development, and has acceptable performance characteristics and potential consequences that do not disproportionately affect any one group of individuals. Performed By: #### L [id number] #### [facility] ([facility]) [address] [place] [address] Glucose [Mass/Vol] 76 mg/dL Normal 70-100 [facility] Comment on above: Performed By: #### L [id number] #### [facility] [address] [place] [address] Potassium [Moles/Vol] 4.3 mmol/L Normal 3.5-5.1 [facility] Comment on above: Performed By: #### L [id number] #### [facility] ([facility]) [address] [place] [address] Sodium [Moles/Vol] 136 mmol/L Normal 136-145 [facility] Comment on above: Performed By: #### L [id number] #### [facility] ([facility]) [address] [place] [address] Urea nitrogen [Mass/Vol] 33 mg/dL High 7-25 [facility] Comment on above: Performed By: #### L [id number] #### [facility] [address] [place] [address] UREA NITROGEN/CREATININE (MASS RATIO) IN SER/PLAS 25.4 Normal [facility] Comment on above: Performed By: #### L [id number] #### [facility] [address] [place] [address] CBCon 09-18-2023 Erythrocyte distribution width (RBC) [Ratio] 17.3 % High 11.5-15.0 [facility] Comment on above: Performed By: #### L [id number] #### [facility] ([facility]) [address] [place] [address] ERYTHROCYTE MEAN CORPUSCULAR HEMOGLOBIN CONCENTRATION (G/DL) BY AUTOMATED 32.1 g/dL Normal 32.0-35.0 [facility] Comment on above: Performed By: #### L [id number] #### [facility] [address] [place] [address] Hematocrit (Bld) [Volume fraction] 27.4 % Low 39.0-55.0 [facility] Comment on above: Performed By: #### L [id number] #### [facility] [address] [place] [address] Hemoglobin (Bld) [Mass/Vol] 8.8 g/dL Low 13.0-17.0 [facility] Comment on above: Performed By: #### L [id number] #### [facility] [address] [place] [address] MCH (RBC) [Entitic mass] 29.4 pg Normal 27.0-33.0 [facility] Comment on above: Performed By: #### L [id number] #### [facility] [address] [place] [address] MCV (RBC) [Entitic vol] 91.6 fL Normal 82.0-98.0 [facility] Comment on above: Performed By: #### L [id number] #### [facility] [facility] ([facility]) [address] [place] [address] PLATELETS (10*3/UL) IN BLOOD AUTOMATED COUNT 543 10*3/uL High 150-400 [facility] Comment on above: Performed By: #### L [id number] #### [facility] ([facility]) [address] [place] [address] RBC (Bld) [#/Vol] 2.99 10*6/uL Low 4.20-5.70 [facility] Comment on above: Performed By: #### L [id number] #### [facility] ([facility]) [address] [place] [address] WBC (Bld) [#/Vol] 9.63 10*3/uL Normal 4.00-10.60 [facility] Comment on above: Performed By: #### L [id number] #### [facility] ([facility]) [address] [place] [address] MAGNESIUMon 09-18-2023 Magnesium [Mass/Vol] 2.0 mg/dL Normal 1.9-2.7 [facility] Comment on above: Performed By: #### L [id number] #### [facility] ([facility]) [address] [place] [address] PHOSPHORUSon 09-18-2023 Magnesium [Mass/Vol] 5.1 mg/dL High 2.5-5.0 [facility] Comment on above: Performed By: #### L [id number] #### [facility] ([facility]) [address] [place] [address] BASIC METABOLIC PANELon 08-25 Anion gap [Moles/Vol] 12 mmol/L Normal 7-20 [facility] Comment on above: Performed By: #### L [id number] #### [facility] ([facility]) [address] [place] [address] Calcium [Mass/Vol] 8.6 mg/dL Normal 8.6-10.3 [facility] Comment on above: Performed By: #### L [id number] #### [facility] ([facility] [address] [place] [address] Chloride [Moles/Vol] 106 mmol/L Normal 98-107 [facility] Comment on above: Performed By: #### L [id number] #### [facility] ([facility]) [address] [place] [address] CO2 [Moles/Vol] 24 mmol/L Normal 21-31 [facility] Comment on above: Performed By: #### L [id number] #### [facility] ([facility]) [address] [place] [address] Creatinine [Mass/Vol] 1.55 mg/dL High 0.70-1.30 [facility] Comment on above: Performed By: #### L [id number] #### [facility] ([facility]) [address] [place] [address] GLOMERULAR FILTRATION RATE ML/MIN/1.73 SQ M.PREDICTED 47.6 mL/min/1.73m*2 Low >60.0 [facility] Comment on above: Result Comment: The [facility]???s estimated glomerular filtration rate (eGFR) will no longer include consideration of race in its calculation. The National Kidney Foundation???s eGFR Task Force developed new recommendations for the estimation of the glomerular filtration rate in the [place] They recommend immediate implementation of the new equation refit without the race variable in all laboratories because the calculation does not include race. In addition to not including race in the calculation and reporting, it included diversity in its development, and has acceptable performance characteristics and potential consequences that do not disproportionately affect any one group of individuals. Performed By: #### L [id number] #### [facility] [address] [place] [address] Glucose [Mass/Vol] 70 mg/dL Normal 70-100 [facility] Comment on above: Performed By: #### L [id number] #### [facility] ([facility]) [address] [place] [address] Potassium [Moles/Vol] 4.5 mmol/L Normal 3.5-5.1 [facility] Comment on above: Performed By: #### L [id number] #### [facility] ([facility]) [address] [place] [address] Sodium [Moles/Vol] 137 mmol/L Normal 136-145 [facility] Comment on above: Performed By: #### L [id number] #### [facility] ([facility]) [address] [place] [address] Urea nitrogen [Mass/Vol] 40 mg/dL High 7-25 [facility] Comment on above: Performed By: #### L [id number] #### [facility] ([facility]) [address] [place] [address] UREA NITROGEN/CREATININE (MASS RATIO) IN SER/PLAS 25.8 Normal [facility] Comment on above: Performed By: #### L [id number] #### [facility] ([facility]) [address] [place] [address] CBCon 09-17-2023 Erythrocyte distribution width (RBC) [Ratio] 17.1 % High 11.5-15.0 [facility] Comment on above: Performed By: #### L [id number] #### [facility] ([facility]) [address] [place] [address] ERYTHROCYTE MEAN CORPUSCULAR HEMOGLOBIN CONCENTRATION (G/DL) BY AUTOMATED 31.7 g/dL Low 32.0-35.0 [facility] Comment on above: Performed By: #### L [id number] #### [facility] ([facility]) [address] [place] [address] Hematocrit (Bld) [Volume fraction] 31.2 % Low 39.0-55.0 [facility] Comment on above: Performed By: #### L [id number] #### [facility] ([facility]) [address] [place] [address] Hemoglobin (Bld) [Mass/Vol] 9.9 g/dL Low 13.0-17.0 [facility] Comment on above: Performed By: #### L [id number] #### [facility] ([facility]) [address] [place] [address] MCH (RBC) [Entitic mass] 28.5 pg Normal 27.0-33.0 [facility] Comment on above: Performed By: #### L [id number] #### [facility] ([facility]) [address] [place] [address] MCV (RBC) [Entitic vol] 89.9 fL Normal 82.0-98.0 [facility] Comment on above: Performed By: #### L [id number] #### [facility] ([facility]) [address] [place] [address] PLATELETS (10*3/UL) IN BLOOD AUTOMATED COUNT 667 10*3/uL High 150-400 [facility] Comment on above: Performed By: #### L [id number] #### [facility] ([facility]) [address] [place] [address] RBC (Bld) [#/Vol] 3.47 10*6/uL Low 4.20-5.70 [facility] Comment on above: Performed By: #### L [id number] #### [facility] ([facility]) [address] [place] [address] WBC (Bld) [#/Vol] 10.60 10*3/uL Normal 4.00-10.60 [facility] Comment on above: Performed By: #### L [id number] #### [facility] ([facility]) [address] [place] [address] MAGNESIUMon 09-17-2023 Magnesium [Mass/Vol] 2.0 mg/dL Normal 1.9-2.7 [facility] Comment on above: Performed By: #### L [id number] #### [facility] ([facility]) [address] [place] [address] PHOSPHORUSon 09-17-2023 Magnesium [Mass/Vol] 5.6 mg/dL High 2.5-5.0 [facility] Comment on above: Performed By: #### L [id number] #### [facility] ([facility]) [address] [place] [address] BASIC METABOLIC PANELon 08-25 Anion gap [Moles/Vol] 15 mmol/L Normal 7-20 [facility] Comment on above: Performed By: #### L [id number] #### [facility] ([facility]) [address] [place] [address] Calcium [Mass/Vol] 8.4 mg/dL Low 8.6-10.3 [facility] Comment on above: Performed By: #### L [id number] #### [facility] [address] [place] [address] Chloride [Moles/Vol] 103 mmol/L Normal 98-107 [facility] Comment on above: Performed By: #### L [id number] #### [facility] [address] [place] [address] CO2 [Moles/Vol] 22 mmol/L Normal 21-31 [facility] Comment on above: Performed By: #### L [id number] #### [facility] ([facility]) [address] [place] [address] Creatinine [Mass/Vol] 2.36 mg/dL High 0.70-1.30 [facility] Comment on above: Performed By: #### L [id number] #### [facility] ([facility] [address] [place] [address] GLOMERULAR FILTRATION RATE ML/MIN/1.73 SQ M.PREDICTED 28.7 mL/min/1.73m*2 Low >60.0 [facility] Comment on above: Result Comment: The [facility]???s estimated glomerular filtration rate (eGFR) will no longer include consideration of race in its calculation. The National Kidney Foundation???s eGFR Task Force developed new recommendations for the estimation of the glomerular filtration rate in the [place] They recommend immediate implementation of the new equation refit without the race variable in all laboratories because the calculation does not include race. In addition to not including race in the calculation and reporting, it included diversity in its development, and has acceptable performance characteristics and potential consequences that do not disproportionately affect any one group of individuals. Performed By: #### L [id number] #### [facility] ([facility]) [address] [place] [address] Glucose [Mass/Vol] 36 mg/dL Invalid Interpretation Code 70-100 [facility] Comment on above: Performed By: #### L [id number] #### [facility] ([facility]) [address] [place] [address] Potassium [Moles/Vol] 4.6 mmol/L Normal 3.5-5.1 [facility] Comment on above: Performed By: #### L [id number] #### [facility] ([facility]) [address] [place] [address] Sodium [Moles/Vol] 135 mmol/L Low 136-145 [facility] Comment on above: Performed By: #### L [id number] #### [facility] ([facility]) [address] [place] [address] Urea nitrogen [Mass/Vol] 52 mg/dL High 7-25 [facility] Comment on above: Performed By: #### L [id number] #### [facility] ([facility]) [address] [place] [address] UREA NITROGEN/CREATININE (MASS RATIO) IN SER/PLAS 22.0 Normal [facility] Comment on above: Performed By: #### L [id number] #### [facility] ([facility]) [address] [place] [address] CBC WITH AUTO DIFFERENTIALon 04-23-2024 Basophils (Bld) [#/Vol] 0.19 10*3/uL Normal 0.00-0.20 [facility] Comment on above: Performed By: #### L [id number] #### [facility] [address] [place] [address] Basophils/100 WBC (Bld) 1.7 % High 0.0-1.0 [facility] Comment on above: Performed By: #### L [id number] #### [facility] ([facility]) [address] [place] [address] Eosinophils (Bld) [#/Vol] 0.62 10*3/uL High 0.00-0.50 [facility] Comment on above: Performed By: #### L [id number] #### [facility] ([facility]) [address] [place] [address] Eosinophils/100 WBC (Bld) 5.6 % Normal 0.0-6.0 [facility] Comment on above: Performed By: #### L [id number] #### [facility] ([facility]) [address] [place] [address] Erythrocyte distribution width (RBC) [Ratio] 17.2 % High 11.5-15.0 [facility] Comment on above: Performed By: #### L [id number] #### [facility] ([facility]) [address] [place] [address] ERYTHROCYTE MEAN CORPUSCULAR HEMOGLOBIN CONCENTRATION (G/DL) BY AUTOMATED 31.6 g/dL Low 32.0-35.0 [facility] Comment on above: Performed By: #### L [id number] #### [facility] ([facility]) [address] [place] [address] Hematocrit (Bld) [Volume fraction] 29.7 % Low 39.0-55.0 [facility] Comment on above: Performed By: #### L [id number] #### [facility] [address] [place] [address] Hemoglobin (Bld) [Mass/Vol] 9.4 g/dL Low 13.0-17.0 [facility] Comment on above: Performed By: #### L [id number] #### [facility] ([facility]) [address] [place] [address] Immature granulocytes (Bld) [#/Vol] 0.04 10*3/uL Normal 0.00-0.20 [facility] Comment on above: Performed By: #### L [id number] #### [facility] ([facility]) [address] [place] [address] Immature granulocytes/100 WBC (Bld) 0.4 % Normal 0.0-1.0 [facility] Comment on above: Performed By: #### L [id number] #### [facility] ([facility]) [address] [address] Lymphocytes (Bld) [#/Vol] 2.60 10*3/uL Normal 1.20-4.00 [facility] Comment on above: Performed By: #### L [id number] #### [facility] [address] [place] [address] Lymphocytes/100 WBC (Bld) 23.4 % Normal 20.0-45.0 [facility] Comment on above: Performed By: #### L [id number] #### [facility] [address] [place] [address] MCH (RBC) [Entitic mass] 28.7 pg Normal 27.0-33.0 [facility] Comment on above: Performed By: #### L [id number] #### [facility] ([facility]) [address] [place] [address] MCV (RBC) [Entitic vol] 90.8 fL Normal 82.0-98.0 [facility] Comment on above: Performed By: #### L [id number] #### [facility] ([facility]) [address] [place] [address] Monocytes (Bld) [#/Vol] 1.32 10*3/uL High 0.10-1.00 [facility] Comment on above: Performed By: #### L [id number] #### [facility] ([facility]) [address] [place] [address] Monocytes/100 WBC (Bld) 11.9 % Normal 5.0-12.0 [facility] Comment on above: Performed By: #### L [id number] #### [facility] ([facility]) [address] [place] [address] Neutrophils (Bld) [#/Vol] 6.33 10*3/uL Normal 1.60-7.60 [facility] Comment on above: Performed By: #### L [id number] #### [facility] ([facility]) [address] [place] [address] Neutrophils/100 WBC (Bld) 57.0 % Normal 40.0-72.0 [facility] Comment on above: Performed By: #### L [id number] #### [facility] ([facility]) [address] [place] [address] NRBC (PER 100 WBCS) BY AUTOMATED COUNT 0.0 % Normal 0 [facility] Comment on above: Performed By: #### L [id number] #### [facility] ([facility]) [address] [place] [address] PLATELETS (10*3/UL) IN BLOOD AUTOMATED COUNT 633 10*3/uL High 150-400 [facility] Comment on above: Performed By: #### L [id number] #### [facility] ([facility]) [address] [place] [address] RBC (Bld) [#/Vol] 3.27 10*6/uL Low 4.20-5.70 [facility] Comment on above: Performed By: #### L [id number] #### [facility] [address] [place] [address] WBC (Bld) [#/Vol] 11.10 10*3/uL High 4.00-10.60 [facility] Comment on above: Performed By: #### L [id number] #### [facility] ([facility]) [address] [place] [address] MAGNESIUMon 09-16-2023 Magnesium [Mass/Vol] 2.1 mg/dL Normal 1.9-2.7 [facility] Comment on above: Performed By: #### L [id number] #### [facility] ([facility]) [address] [place] [address] PHOSPHORUSon 09-16-2023 Magnesium [Mass/Vol] 6.4 mg/dL High 2.5-5.0 [facility] Comment on above: Performed By: #### L [id number] #### [facility] ([facility]) [address] [place] [address] BASIC METABOLIC PANELon 08-25 Anion gap [Moles/Vol] 13 mmol/L Normal 7-20 [facility] Comment on above: Performed By: #### L [id number] #### [facility] ([facility]) [address] [place] [address] Calcium [Mass/Vol] 8.3 mg/dL Low 8.6-10.3 [facility] Comment on above: Performed By: #### L [id number] #### [facility] ([facility]) [address] [place] [address] Chloride [Moles/Vol] 102 mmol/L Normal 98-107 [facility] Comment on above: Performed By: #### L [id number] #### [facility] ([facility]) [address] [place] [address] CO2 [Moles/Vol] 24 mmol/L Normal 21-31 [facility] Comment on above: Performed By: #### L [id number] #### [facility] [address] [place] [address] Creatinine [Mass/Vol] 2.10 mg/dL High 0.70-1.30 [facility] Comment on above: Performed By: #### L [id number] #### [facility] ([facility]) [address] [place] [address] GLOMERULAR FILTRATION RATE ML/MIN/1.73 SQ M.PREDICTED 33.0 mL/min/1.73m*2 Low >60.0 [facility] Comment on above: Result Comment: The [facility]???s estimated glomerular filtration rate (eGFR) will no longer include consideration of race in its calculation. The National Kidney Foundation???s eGFR Task Force developed new recommendations for the estimation of the glomerular filtration rate in the [place] They recommend immediate implementation of the new equation refit without the race variable in all laboratories because the calculation does not include race. In addition to not including race in the calculation and reporting, it included diversity in its development, and has acceptable performance characteristics and potential consequences that do not disproportionately affect any one group of individuals. Performed By: #### L [id number] #### [facility] ([facility]) [address] [place] [address] Glucose [Mass/Vol] 71 mg/dL Normal 70-100 [facility] Comment on above: Performed By: #### L [id number] #### [facility] ([facility]) [address] [place] [address] Potassium [Moles/Vol] 4.7 mmol/L Normal 3.5-5.1 [facility] Comment on above: Performed By: #### L [id number] #### [facility] ([facility]) [address] [place] [address] Sodium [Moles/Vol] 134 mmol/L Low 136-145 [facility] Comment on above: Performed By: #### L [id number] #### [facility] ([facility]) [address] [place] [address] Urea nitrogen [Mass/Vol] 61 mg/dL High 7-25 [facility] Comment on above: Performed By: #### L [id number] #### [facility] ([facility]) [address] [place] [address] UREA NITROGEN/CREATININE (MASS RATIO) IN SER/PLAS 29.0 Normal [facility] Comment on above: Performed By: #### L [id number] #### [facility] ([facility]) [address] [place] [address] CBCon 09-15-2023 Erythrocyte distribution width (RBC) [Ratio] 17.2 % High 11.5-15.0 [facility] Comment on above: Performed By: #### L [id number] #### [facility] ([facility]) [address] [place] [address] ERYTHROCYTE MEAN CORPUSCULAR HEMOGLOBIN CONCENTRATION (G/DL) BY AUTOMATED 31.9 g/dL Low 32.0-35.0 [facility] Comment on above: Performed By: #### L [id number] #### [facility] ([facility]) [address] [place] [address] Hematocrit (Bld) [Volume fraction] 29.5 % Low 39.0-55.0 [facility] Comment on above: Performed By: #### L [id number] #### [facility] ([facility]) [address] [place] [address] Hemoglobin (Bld) [Mass/Vol] 9.4 g/dL Low 13.0-17.0 [facility] Comment on above: Performed By: #### L [id number] #### [facility] ([facility]) [address] [place] [address] MCH (RBC) [Entitic mass] 28.7 pg Normal 27.0-33.0 [facility] Comment on above: Performed By: #### L [id number] #### [facility] ([facility]) [address] [place] [address] MCV (RBC) [Entitic vol] 89.9 fL Normal 82.0-98.0 [facility] Comment on above: Performed By: #### L [id number] #### [facility] ([facility]) [address] [place] [address] PLATELETS (10*3/UL) IN BLOOD AUTOMATED COUNT 634 10*3/uL High 150-400 [facility] Comment on above: Performed By: #### L [id number] #### [facility] ([facility]) [address] [place] [address] RBC (Bld) [#/Vol] 3.28 10*6/uL Low 4.20-5.70 [facility] Comment on above: Performed By: #### L [id number] #### [facility] ([facility]) [address] [place] [address] WBC (Bld) [#/Vol] 10.10 10*3/uL Normal 4.00-10.60 [facility] Comment on above: Performed By: #### L [id number] #### [facility] ([facility]) [address] [place] [address] MAGNESIUMon 09-15-2023 Magnesium [Mass/Vol] 2.2 mg/dL Normal 1.9-2.7 [facility] Comment on above: Performed By: #### L [id number] #### [facility] ([facility]) [address] [place] [address] PHOSPHORUSon 09-15-2023 Magnesium [Mass/Vol] 7.5 mg/dL High 2.5-5.0 [facility] Comment on above: Performed By: #### L [id number] #### [facility] ([facility]) [address] [place] [address] BASIC METABOLIC PANELon 08-25 Anion gap [Moles/Vol] 16 mmol/L Normal 7-20 [facility] Comment on above: Performed By: #### L [id number] #### [facility] ([facility]) [address] [place] [address] Calcium [Mass/Vol] 8.4 mg/dL Low 8.6-10.3 [facility] Comment on above: Performed By: #### L [id number] #### [facility] [address] [place] [address] Chloride [Moles/Vol] 103 mmol/L Normal 98-107 [facility] Comment on above: Performed By: #### L [id number] #### [facility] ([facility]) [address] [place] [address] CO2 [Moles/Vol] 21 mmol/L Normal 21-31 [facility] Comment on above: Performed By: #### L [id number] #### [facility] ([facility]) [address] [place] [address] Creatinine [Mass/Vol] 1.98 mg/dL High 0.70-1.30 [facility] Comment on above: Performed By: #### L [id number] #### [facility] ([facility]) [address] [place] [address] GLOMERULAR FILTRATION RATE ML/MIN/1.73 SQ M.PREDICTED 35.4 mL/min/1.73m*2 Low >60.0 [facility] Comment on above: Result Comment: The [facility]???s estimated glomerular filtration rate (eGFR) will no longer include consideration of race in its calculation. The National Kidney Foundation???s eGFR Task Force developed new recommendations for the estimation of the glomerular filtration rate in the [place] They recommend immediate implementation of the new equation refit without the race variable in all laboratories because the calculation does not include race. In addition to not including race in the calculation and reporting, it included diversity in its development, and has acceptable performance characteristics and potential consequences that do not disproportionately affect any one group of individuals. Performed By: #### L [id number] #### [facility] ([facility]) [address] [place] [address] Glucose [Mass/Vol] 74 mg/dL Normal 70-100 [facility] Comment on above: Performed By: #### L [id number] #### [facility] ([facility]) [address] [place] [address] Potassium [Moles/Vol] 4.8 mmol/L Normal 3.5-5.1 [facility] Comment on above: Performed By: #### L [id number] #### [facility] ([facility]) [address] [address] Sodium [Moles/Vol] 135 mmol/L Low 136-145 [facility] Comment on above: Performed By: #### L [id number] #### [facility] ([facility]) [address] [place] [address] Urea nitrogen [Mass/Vol] 67 mg/dL High 7-25 [facility] Comment on above: Performed By: #### L [id number] #### [facility] ([facility]) [address] [place] [address] UREA NITROGEN/CREATININE (MASS RATIO) IN SER/PLAS 33.8 Normal [facility] Comment on above: Performed By: #### L [id number] #### [facility] ([facility]) [address] [place] [address] CBC WITH AUTO DIFFERENTIALon 09-14-2023 Basophils (Bld) [#/Vol] 0.22 10*3/uL High 0.00-0.20 [facility] Comment on above: Performed By: #### L [id number] #### [facility] ([facility]) [address] [address] Basophils/100 WBC (Bld) 2.0 % High 0.0-1.0 [facility] Comment on above: Performed By: #### L [id number] #### [facility] ([facility]) [address] [place] [address] Eosinophils (Bld) [#/Vol] 0.53 10*3/uL High 0.00-0.50 [facility] Comment on above: Performed By: #### L [id number] #### [facility] [address] [place] [address] Eosinophils/100 WBC (Bld) 4.7 % Normal 0.0-6.0 [facility] Comment on above: Performed By: #### L [id number] #### [facility] [address] [place] [address] Erythrocyte distribution width (RBC) [Ratio] 17.1 % High 11.5-15.0 [facility] Comment on above: Performed By: #### L [id number] #### [facility] ([facility]) [address] [place] [address] ERYTHROCYTE MEAN CORPUSCULAR HEMOGLOBIN CONCENTRATION (G/DL) BY AUTOMATED 32.6 g/dL Normal 32.0-35.0 [facility] Comment on above: Performed By: #### L [id number] #### [facility] ([facility]) [address] [place] [address] Hematocrit (Bld) [Volume fraction] 27.0 % Low 39.0-55.0 [facility] Comment on above: Performed By: #### L [id number] #### [facility] ([facility]) [address] [place] [address] Hemoglobin (Bld) [Mass/Vol] 8.8 g/dL Low 13.0-17.0 [facility] Comment on above: Performed By: #### L [id number] #### [facility] ([facility]) [address] [place] [address] Immature granulocytes (Bld) [#/Vol] 0.04 10*3/uL Normal 0.00-0.20 [facility] Comment on above: Performed By: #### L [id number] #### [facility] ([facility]) [address] [place] [address] Immature granulocytes/100 WBC (Bld) 0.4 % Normal 0.0-1.0 [facility] Comment on above: Performed By: #### L [id number] #### [facility] ([facility]) [address] [place] [address] Lymphocytes (Bld) [#/Vol] 3.56 10*3/uL Normal 1.20-4.00 [facility] Comment on above: Performed By: #### L [id number] #### [facility] ([facility]) [address] [place] [address] Lymphocytes/100 WBC (Bld) 31.8 % Normal 20.0-45.0 [facility] Comment on above: Performed By: #### L [id number] #### [facility] ([facility]) [address] [place] [address] MCH (RBC) [Entitic mass] 29.3 pg Normal 27.0-33.0 [facility] Comment on above: Performed By: #### L [id number] #### [facility] [address] [place] [address] MCV (RBC) [Entitic vol] 90.0 fL Normal 82.0-98.0 [facility] Comment on above: Performed By: #### L [id number] #### [facility] ([facility]) [address] [place] [address] Monocytes (Bld) [#/Vol] 1.40 10*3/uL High 0.10-1.00 [facility] Comment on above: Performed By: #### L [id number] #### [facility] ([facility]) [address] [place] [address] Monocytes/100 WBC (Bld) 12.5 % High 5.0-12.0 [facility] Comment on above: Performed By: #### L [id number] #### [facility] [address] [place] [address] Neutrophils (Bld) [#/Vol] 5.43 10*3/uL Normal 1.60-7.60 [facility] Comment on above: Performed By: #### L [id number] #### [facility] [address] [place] [address] Neutrophils/100 WBC (Bld) 48.6 % Normal 40.0-72.0 [facility] Comment on above: Performed By: #### L [id number] #### [facility] ([facility] [address] [place] [address] NRBC (PER 100 WBCS) BY AUTOMATED COUNT 0.0 % Normal 0 [facility] Comment on above: Performed By: #### L [id number] #### [facility] ([facility]) [address] [place] [address] PLATELETS (10*3/UL) IN BLOOD AUTOMATED COUNT 633 10*3/uL High 150-400 [facility] Comment on above: Performed By: #### L [id number] #### [facility] ([facility]) [address] [place] [address] RBC (Bld) [#/Vol] 3.00 10*6/uL Low 4.20-5.70 [facility] Comment on above: Performed By: #### L [id number] #### [facility] ([facility]) [address] [place] [address] WBC (Bld) [#/Vol] 11.18 10*3/uL High 4.00-10.60 [facility] Comment on above: Performed By: #### L [id number] #### [facility] ([facility]) [address] [place] [address] MAGNESIUMon 09-14-2023 Magnesium [Mass/Vol] 2.2 mg/dL Normal 1.9-2.7 [facility] Comment on above: Performed By: #### L [id number] #### [facility] ([facility]) [address] [place] [address] PHOSPHORUSon 09-14-2023 Magnesium [Mass/Vol] 6.7 mg/dL High 2.5-5.0 [facility] Comment on above: Performed By: #### L [id number] #### [facility] ([facility]) [address] [place] [address] BASIC METABOLIC PANELon 08-24 Anion gap [Moles/Vol] 13 mmol/L Normal 7-20 [facility] Comment on above: Performed By: #### L [id number] #### [facility] ([facility]) [address] [place] [address] Calcium [Mass/Vol] 8.5 mg/dL Low 8.6-10.3 [facility] Comment on above: Performed By: #### L [id number] #### [facility] ([facility]) [address] [place] [address] Chloride [Moles/Vol] 102 mmol/L Normal 98-107 [facility] Comment on above: Performed By: #### L [id number] #### [facility] ([facility]) [address] [place] [address] CO2 [Moles/Vol] 23 mmol/L Normal 21-31 [facility] Comment on above: Performed By: #### L [id number] #### [facility] ([facility]) [address] [place] [address] Creatinine [Mass/Vol] 1.44 mg/dL High 0.70-1.30 [facility] Comment on above: Performed By: #### L [id number] #### [facility] ([facility]) [address] [place] [address] GLOMERULAR FILTRATION RATE ML/MIN/1.73 SQ M.PREDICTED 51.9 mL/min/1.73m*2 Low >60.0 [facility] Comment on above: Result Comment: The [facility]???s estimated glomerular filtration rate (eGFR) will no longer include consideration of race in its calculation. The National Kidney Foundation???s eGFR Task Force developed new recommendations for the estimation of the glomerular filtration rate in the [place] They recommend immediate implementation of the new equation refit without the race variable in all laboratories because the calculation does not include race. In addition to not including race in the calculation and reporting, it included diversity in its development, and has acceptable performance characteristics and potential consequences that do not disproportionately affect any one group of individuals. Performed By: #### L [id number] #### [facility] ([facility]) [address] [place] [address] Glucose [Mass/Vol] 61 mg/dL Low 70-100 [facility] Comment on above: Performed By: #### L [id number] #### [facility] ([facility]) [address] [place] [address] Potassium [Moles/Vol] 4.0 mmol/L Normal 3.5-5.1 [facility] Comment on above: Performed By: #### L [id number] #### [facility] ([facility]) [address] [place] [address] Sodium [Moles/Vol] 134 mmol/L Low 136-145 [facility] Comment on above: Performed By: #### L [id number] #### [facility] ([facility]) [address] [place] [address] Urea nitrogen [Mass/Vol] 76 mg/dL High 7-25 [facility] Comment on above: Performed By: #### L [id number] #### [facility] ([facility]) [address] [place] [address] UREA NITROGEN/CREATININE (MASS RATIO) IN SER/PLAS 52.8 Normal [facility] Comment on above: Performed By: #### L [id number] #### [facility] ([facility]) [address] [place] [address] CBCon 09-12-2023 Erythrocyte distribution width (RBC) [Ratio] 15.7 % High 11.5-15.0 [facility] Comment on above: Performed By: #### L [id number] #### [facility] ([facility]) [address] [place] [address] ERYTHROCYTE MEAN CORPUSCULAR HEMOGLOBIN CONCENTRATION (G/DL) BY AUTOMATED 33.0 g/dL Normal 32.0-35.0 [facility] Comment on above: Performed By: #### L [id number] #### [facility] ([facility]) [address] [place] [address] Hematocrit (Bld) [Volume fraction] 30.3 % Low 39.0-55.0 [facility] Comment on above: Performed By: #### L [id number] #### [facility] ([facility]) [address] [place] [address] Hemoglobin (Bld) [Mass/Vol] 10.0 g/dL Low 13.0-17.0 [facility] Comment on above: Performed By: #### L [id number] #### [facility] ([facility]) [address] [place] [address] MCH (RBC) [Entitic mass] 29.2 pg Normal 27.0-33.0 [facility] Comment on above: Performed By: #### L [id number] #### [facility] ([facility]) [address] [place] [address] MCV (RBC) [Entitic vol] 88.6 fL Normal 82.0-98.0 [facility] Comment on above: Performed By: #### L [id number] #### [facility] ([facility]) [address] [place] [address] PLATELETS (10*3/UL) IN BLOOD AUTOMATED COUNT 566 10*3/uL High 150-400 [facility] Comment on above: Performed By: #### L [id number] #### [facility] ([facility]) [address] [place] [address] RBC (Bld) [#/Vol] 3.42 10*6/uL Low 4.20-5.70 [facility] Comment on above: Performed By: #### L [id number] #### [facility] ([facility]) [address] [place] [address] WBC (Bld) [#/Vol] 12.24 10*3/uL High 4.00-10.60 [facility] Comment on above: Performed By: #### L [id number] #### [facility] ([facility]) [address] [place] [address] MAGNESIUMon 09-12-2023 Magnesium [Mass/Vol] 2.2 mg/dL Normal 1.9-2.7 [facility] Comment on above: Performed By: #### L [id number] #### [facility] [address] [place] [address] PHOSPHORUSon 09-12-2023 Magnesium [Mass/Vol] 6.4 mg/dL High 2.5-5.0 [facility] Comment on above: Performed By: #### L [id number] #### [facility] ([facility]) [address] [place] [address] BASIC METABOLIC PANELon 08-24 Anion gap [Moles/Vol] 11 mmol/L Normal 7-20 [facility] Comment on above: Performed By: #### L [id number] #### [facility] [address] [place] [address] Calcium [Mass/Vol] 8.1 mg/dL Low 8.6-10.3 [facility] Comment on above: Performed By: #### L [id number] #### [facility] [address] [place] [address] Chloride [Moles/Vol] 101 mmol/L Normal 98-107 [facility] Comment on above: Performed By: #### L [id number] #### [facility] ([facility]) [address] [place] [address] CO2 [Moles/Vol] 26 mmol/L Normal 21-31 [facility] Comment on above: Performed By: #### L [id number] #### [facility] [address] [place] [address] Creatinine [Mass/Vol] 1.22 mg/dL Normal 0.70-1.30 [facility] Comment on above: Performed By: #### L [id number] #### [facility] ([facility]) [address] [place] [address] GLOMERULAR FILTRATION RATE ML/MIN/1.73 SQ M.PREDICTED 63.4 mL/min/1.73m*2 Normal >60.0 [facility] Comment on above: Result Comment: The [facility]???s estimated glomerular filtration rate (eGFR) will no longer include consideration of race in its calculation. The National Kidney Foundation???s eGFR Task Force developed new recommendations for the estimation of the glomerular filtration rate in the [place] They recommend immediate implementation of the new equation refit without the race variable in all laboratories because the calculation does not include race. In addition to not including race in the calculation and reporting, it included diversity in its development, and has acceptable performance characteristics and potential consequences that do not disproportionately affect any one group of individuals. Performed By: #### L [id number] #### [facility] ([facility]) [address] [place] [address] Glucose [Mass/Vol] 56 mg/dL Low 70-100 [facility] Comment on above: Performed By: #### L [id number] #### [facility] ([facility]) [address] [place] [address] Potassium [Moles/Vol] 3.6 mmol/L Normal 3.5-5.1 [facility] Comment on above: Performed By: #### L [id number] #### [facility] ([facility]) [address] [place] [address] Sodium [Moles/Vol] 134 mmol/L Low 136-145 [facility] Comment on above: Performed By: #### L [id number] #### [facility] ([facility]) [address] [place] [address] Urea nitrogen [Mass/Vol] 83 mg/dL High 7-25 [facility] Comment on above: Performed By: #### L [id number] #### [facility] ([facility]) [address] [place] [address] UREA NITROGEN/CREATININE (MASS RATIO) IN SER/PLAS 68.0 Normal [facility] Comment on above: Performed By: #### L [id number] #### [facility] ([facility]) [address] [place] [address] CBCon 09-10-2023 Erythrocyte distribution width (RBC) [Ratio] 15.9 % High 11.5-15.0 [facility] Comment on above: Performed By: #### L [id number] #### [facility] ([facility]) [address] [place] [address] ERYTHROCYTE MEAN CORPUSCULAR HEMOGLOBIN CONCENTRATION (G/DL) BY AUTOMATED 34.2 g/dL Normal 32.0-35.0 [facility] Comment on above: Performed By: #### L [id number] #### [facility] [address] [place] [address] Hematocrit (Bld) [Volume fraction] 26.9 % Low 39.0-55.0 [facility] Comment on above: Performed By: #### L [id number] #### [facility] ([facility]) [address] [place] [address] Hemoglobin (Bld) [Mass/Vol] 9.2 g/dL Low 13.0-17.0 [facility] Comment on above: Performed By: #### L [id number] #### [facility] ([facility]) [address] [place] [address] MCH (RBC) [Entitic mass] 29.8 pg Normal 27.0-33.0 [facility] Comment on above: Performed By: #### L [id number] #### [facility] ([facility]) [address] [place] [address] MCV (RBC) [Entitic vol] 87.1 fL Normal 82.0-98.0 [facility] Comment on above: Performed By: #### L [id number] #### [facility] ([facility]) [address] [place] [address] PLATELETS (10*3/UL) IN BLOOD AUTOMATED COUNT 479 10*3/uL High 150-400 [facility] Comment on above: Performed By: #### L [id number] #### [facility] ([facility]) [address] [place] [address] RBC (Bld) [#/Vol] 3.09 10*6/uL Low 4.20-5.70 [facility] Comment on above: Performed By: #### L [id number] #### [facility] ([facility]) [address] [place] [address] WBC (Bld) [#/Vol] 12.21 10*3/uL High 4.00-10.60 [facility] Comment on above: Performed By: #### L [id number] #### [facility] ([facility]) [address] [place] [address] MAGNESIUMon 09-10-2023 Magnesium [Mass/Vol] 2.4 mg/dL Normal 1.9-2.7 [facility] Comment on above: Performed By: #### L [id number] #### [facility] ([facility]) [address] [place] [address] PHOSPHORUSon 09-10-2023 Magnesium [Mass/Vol] 5.5 mg/dL High 2.5-5.0 [facility] Comment on above: Performed By: #### L [id number] #### [facility] ([facility]) [address] [place] [address] CBC WITH AUTO DIFFERENTIALon 09-09-2023 Basophils (Bld) [#/Vol] 0.11 10*3/uL Normal 0.00-0.20 [facility] Comment on above: Performed By: #### L [id number] #### [facility] ([facility]) [address] [place] [address] Basophils/100 WBC (Bld) 0.8 % Normal 0.0-1.0 [facility] Comment on above: Performed By: #### L [id number] #### [facility] ([facility]) [address] [place] [address] Eosinophils (Bld) [#/Vol] 0.41 10*3/uL Normal 0.00-0.50 [facility] Comment on above: Performed By: #### L [id number] #### [facility] [address] [place] [address] Eosinophils/100 WBC (Bld) 3.1 % Normal 0.0-6.0 [facility] Comment on above: Performed By: #### L [id number] #### [facility] ([facility]) [address] [place] [address] Erythrocyte distribution width (RBC) [Ratio] 15.6 % High 11.5-15.0 [facility] Comment on above: Performed By: #### L [id number] #### [facility] ([facility]) [address] [place] [address] ERYTHROCYTE MEAN CORPUSCULAR HEMOGLOBIN CONCENTRATION (G/DL) BY AUTOMATED 34.4 g/dL Normal 32.0-35.0 [facility] Comment on above: Performed By: #### L [id number] #### [facility] ([facility]) [address] [place] [address] Hematocrit (Bld) [Volume fraction] 27.3 % Low 39.0-55.0 [facility] Comment on above: Performed By: #### L [id number] #### [facility] ([facility]) [address] [place] [address] Hemoglobin (Bld) [Mass/Vol] 9.4 g/dL Low 13.0-17.0 [facility] Comment on above: Performed By: #### L [id number] #### [facility] ([facility]) [address] [place] [address] Immature granulocytes (Bld) [#/Vol] 0.06 10*3/uL Normal 0.00-0.20 [facility] Comment on above: Performed By: #### L [id number] #### [facility] ([facility]) [address] [place] [address] Immature granulocytes/100 WBC (Bld) 0.5 % Normal 0.0-1.0 [facility] Comment on above: Performed By: #### L [id number] #### [facility] ([facility]) [address] [place] [address] Lymphocytes (Bld) [#/Vol] 2.09 10*3/uL Normal 1.20-4.00 [facility] Comment on above: Performed By: #### L [id number] #### [facility] ([facility]) [address] [place] [address] Lymphocytes/100 WBC (Bld) 15.9 % Low 20.0-45.0 [facility] Comment on above: Performed By: #### L [id number] #### [facility] ([facility]) [address] [place] [address] MCH (RBC) [Entitic mass] 29.7 pg Normal 27.0-33.0 [facility] [facility] Comment on above: Performed By: #### L [id number] #### [facility] ([facility]) [address] [place] [address] MCV (RBC) [Entitic vol] 86.1 fL Normal 82.0-98.0 [facility] Comment on above: Performed By: #### L [id number] #### [facility] [address] [place] [address] Monocytes (Bld) [#/Vol] 1.24 10*3/uL High 0.10-1.00 [facility] Comment on above: Performed By: #### L [id number] #### [facility] [address] [place] [address] Monocytes/100 WBC (Bld) 9.5 % Normal 5.0-12.0 [facility] Comment on above: Performed By: #### L [id number] #### [facility] ([facility]) [address] [place] [address] Neutrophils (Bld) [#/Vol] 9.20 10*3/uL High 1.60-7.60 [facility] Comment on above: Performed By: #### L [id number] #### [facility] ([facility]) [address] [place] [address] Neutrophils/100 WBC (Bld) 70.2 % Normal 40.0-72.0 [facility] Comment on above: Performed By: #### L [id number] #### [facility] ([facility]) [address] [place] [address] NRBC (PER 100 WBCS) BY AUTOMATED COUNT 0.0 % Normal 0 [facility] Comment on above: Performed By: #### L [id number] #### [facility] ([facility]) [address] [place] [address] PLATELETS (10*3/UL) IN BLOOD AUTOMATED COUNT 520 10*3/uL High 150-400 [facility] Comment on above: Performed By: #### L [id number] #### [facility] ([facility]) [address] [place] [address] RBC (Bld) [#/Vol] 3.17 10*6/uL Low 4.20-5.70 [facility] Comment on above: Performed By: #### L [id number] #### [facility] ([facility]) [address] [place] [address] WBC (Bld) [#/Vol] 13.11 10*3/uL High 4.00-10.60 [facility] Comment on above: Performed By: #### L [id number] #### [facility] ([facility]) [address] [place] [address] PROCALCITONIN TESTon 024 PROCALCITONIN IN BLOOD 0.14 ng/mL High 0.00-0.10 [facility] Comment on above: Result Comment: Susp ected Lower Respiratory Tract Infection: 0.1-0.25 ng/mL - Low likelihood for bacterial infection;Antibiotics discouraged.* >0.25 ng/mL - Increased likelihood bacterial infection;Antibiotics encouraged. Suspected Sepsis: Strongly consider initiating antibiotics in all unstable patients. 0.1-0.5 ng/mL - Low likelihood for sepsis; Antibiotics discouraged.* >0.5 ng/mL - Increased likelihood sepsis; Antibiotics encouraged. >2.0 ng/mL - High risk of sepsis/septic shock; Antibiotics strongly encouraged. *Recommend retesting PCT within 6-12 hours if clinically indicated and initial PCT<0.5ng/mL Performed By: #### L [id number] #### [facility] ([facility]) [address] [place] [address] Telephoneon 09-09-2023 Telephone [phone] Sudeep Diego JR 1950 Date Provider Department [place] 09/09/2023 ISELA POWELL [facility] NEPHRO Comprehensiv No family history on file Normal [facility] BASIC METABOLIC PANELon 08-24 Anion gap [Moles/Vol] 13 mmol/L Normal 7-20 [facility] Comment on above: Performed By: #### L [id number] #### [facility] ([facility]) [address] [place] [address] Calcium [Mass/Vol] 8.2 mg/dL Low 8.6-10.3 [facility] Comment on above: Performed By: #### L [id number] #### [facility] ([facility]) [address] [place] [address] Chloride [Moles/Vol] 98 mmol/L Normal 98-107 [facility] Comment on above: Performed By: #### L [id number] #### [facility] ([facility]) [address] [place] [address] CO2 [Moles/Vol] 25 mmol/L Normal 21-31 [facility] Comment on above: Performed By: #### L [id number] #### [facility] ([facility]) [address] [place] [address] Creatinine [Mass/Vol] 2.14 mg/dL High 0.70-1.30 [facility] Comment on above: Performed By: #### L [id number] #### [facility] ([facility]) [address] [place] [address] GLOMERULAR FILTRATION RATE ML/MIN/1.73 SQ M.PREDICTED 32.3 mL/min/1.73m*2 Low >60.0 [facility] Comment on above: Result Comment: The [facility]???s estimated glomerular filtration rate (eGFR) will no longer include consideration of race in its calculation. The National Kidney Foundation???s eGFR Task Force developed new recommendations for the estimation of the glomerular filtration rate in the [place] They recommend immediate implementation of the new equation refit without the race variable in all laboratories because the calculation does not include race. In addition to not including race in the calculation and reporting, it included diversity in its development, and has acceptable performance characteristics and potential consequences that do not disproportionately affect any one group of individuals. Performed By: #### L [id number] #### [facility] ([facility]) [address] [place] [address] Glucose [Mass/Vol] 92 mg/dL Normal 70-100 [facility] Comment on above: Performed By: #### L [id number] #### [facility] ([facility]) [address] [place] [address] Potassium [Moles/Vol] 3.3 mmol/L Low 3.5-5.1 [facility] Comment on above: Performed By: #### L [id number] #### [facility] ([facility]) [address] [place] [address] Sodium [Moles/Vol] 133 mmol/L Low 136-145 [facility] Comment on above: Performed By: #### L [id number] #### [facility] ([facility]) [address] [place] [address] Urea nitrogen [Mass/Vol] 89 mg/dL High 7-25 [facility] Comment on above: Performed By: #### L [id number] #### [facility] ([facility]) [address] [place] [address] UREA NITROGEN/CREATININE (MASS RATIO) IN SER/PLAS 41.6 Normal [facility] Comment on above: Performed By: #### L [id number] #### [facility] ([facility]) [address] [address] CBCon 09-08-2023 Erythrocyte distribution width (RBC) [Ratio] 15.7 % High 11.5-15.0 [facility] Comment on above: Performed By: #### L [id number] #### [facility] ([facility]) [address] [place] [address] ERYTHROCYTE MEAN CORPUSCULAR HEMOGLOBIN CONCENTRATION (G/DL) BY AUTOMATED 34.0 g/dL Normal 32.0-35.0 [facility] Comment on above: Performed By: #### L [id number] #### [facility] ([facility]) [address] [place] [address] Hematocrit (Bld) [Volume fraction] 29.1 % Low 39.0-55.0 [facility] Comment on above: Performed By: #### L [id number] #### [facility] ([facility]) [address] [place] [address] Hemoglobin (Bld) [Mass/Vol] 9.9 g/dL Low 13.0-17.0 [facility] Comment on above: Performed By: #### L [id number] #### [facility] ([facility]) [address] [place] [address] MCH (RBC) [Entitic mass] 29.5 pg Normal 27.0-33.0 [facility] Comment on above: Performed By: #### L [id number] #### [facility] ([facility]) [address] [place] [address] MCV (RBC) [Entitic vol] 86.6 fL Normal 82.0-98.0 [facility] Comment on above: Performed By: #### L [id number] #### [facility] ([facility]) [address] [place] [address] PLATELETS (10*3/UL) IN BLOOD AUTOMATED COUNT 524 10*3/uL High 150-400 [facility] Comment on above: Performed By: #### L [id number] #### [facility] ([facility]) [address] [place] [address] RBC (Bld) [#/Vol] 3.36 10*6/uL Low 4.20-5.70 [facility] Comment on above: Performed By: #### L [id number] #### [facility] ([facility]) [address] [place] [address] WBC (Bld) [#/Vol] 13.88 10*3/uL High 4.00-10.60 [facility] Comment on above: Performed By: #### L [id number] #### [facility] ([facility]) [address] [place] [address] MAGNESIUMon 09-08-2023 Magnesium [Mass/Vol] 2.4 mg/dL Normal 1.9-2.7 [facility] Comment on above: Performed By: #### L [id number] #### [facility] ([facility]) [address] [place] [address] PHOSPHORUSon 09-08-2023 Magnesium [Mass/Vol] 6.4 mg/dL High 2.5-5.0 [facility] Comment on above: Performed By: #### L [id number] #### [facility] ([facility]) [address] [place] [address] BASIC METABOLIC PANELon 08-24 Anion gap [Moles/Vol] 12 mmol/L Normal 7-20 [facility] Comment on above: Performed By: #### L [id number] #### [facility] ([facility]) [address] [place] [address] Calcium [Mass/Vol] 8.1 mg/dL Low 8.6-10.3 [facility] Comment on above: Performed By: #### L [id number] #### [facility] ([facility]) [address] [place] [address] Chloride [Moles/Vol] 99 mmol/L Normal 98-107 [facility] Comment on above: Performed By: #### L [id number] #### [facility] ([facility]) [address] [place] [address] CO2 [Moles/Vol] 26 mmol/L Normal 21-31 [facility] Comment on above: Performed By: #### L [id number] #### [facility] [address] [place] [address] Creatinine [Mass/Vol] 3.13 mg/dL High 0.70-1.30 [facility] Comment on above: Performed By: #### L [id number] #### [facility] ([facility]) [address] [place] [address] GLOMERULAR FILTRATION RATE ML/MIN/1.73 SQ M.PREDICTED 20.5 mL/min/1.73m*2 Low >60.0 [facility] Comment on above: Result Comment: The [facility]???s estimated glomerular filtration rate (eGFR) will no longer include consideration of race in its calculation. The National Kidney Foundation???s eGFR Task Force developed new recommendations for the estimation of the glomerular filtration rate in the [place] They recommend immediate implementation of the new equation refit without the race variable in all laboratories because the calculation does not include race. In addition to not including race in the calculation and reporting, it included diversity in its development, and has acceptable performance characteristics and potential consequences that do not disproportionately affect any one group of individuals. Performed By: #### L [id number] #### [facility] [address] [place] [address] Glucose [Mass/Vol] 138 mg/dL High 70-100 [facility] Comment on above: Performed By: #### L [id number] #### [facility] [address] [place] [address] Potassium [Moles/Vol] 3.1 mmol/L Low 3.5-5.1 [facility] Comment on above: Performed By: #### L [id number] #### [facility] [address] [place] [address] Sodium [Moles/Vol] 134 mmol/L Low 136-145 [facility] Comment on above: Performed By: #### L [id number] #### [facility] ([facility]) [address] [place] [address] Urea nitrogen [Mass/Vol] 64 mg/dL High 7-25 [facility] Comment on above: Performed By: #### L [id number] #### [facility] ([facility]) [address] [place] [address] UREA NITROGEN/CREATININE (MASS RATIO) IN SER/PLAS 20.4 Normal [facility] Comment on above: Performed By: #### L [id number] #### [facility] ([facility]) [address] [place] [address] CBCon 09-05-2023 Erythrocyte distribution width (RBC) [Ratio] 15.9 % High 11.5-15.0 [facility] Comment on above: Performed By: #### L [id number] #### [facility] ([facility]) [address] [place] [address] ERYTHROCYTE MEAN CORPUSCULAR HEMOGLOBIN CONCENTRATION (G/DL) BY AUTOMATED 33.8 g/dL Normal 32.0-35.0 [facility] Comment on above: Performed By: #### L [id number] #### [facility] ([facility]) [address] [place] [address] Hematocrit (Bld) [Volume fraction] 29.9 % Low 39.0-55.0 [facility] Comment on above: Performed By: #### L [id number] #### [facility] [address] [place] [address] Hemoglobin (Bld) [Mass/Vol] 10.1 g/dL Low 13.0-17.0 [facility] Comment on above: Performed By: #### L [id number] #### [facility] ([facility]) [address] [place] [address] MCH (RBC) [Entitic mass] 29.6 pg Normal 27.0-33.0 [facility] Comment on above: Performed By: #### L [id number] #### [facility] ([facility]) [address] [place] [address] MCV (RBC) [Entitic vol] 87.7 fL Normal 82.0-98.0 [facility] Comment on above: Performed By: #### L [id number] #### [facility] ([facility]) [address] [place] [address] PLATELETS (10*3/UL) IN BLOOD AUTOMATED COUNT 511 10*3/uL High 150-400 [facility] Comment on above: Performed By: #### L [id number] #### [facility] ([facility]) [address] [place] [address] RBC (Bld) [#/Vol] 3.41 10*6/uL Low 4.20-5.70 [facility] Comment on above: Performed By: #### L [id number] #### [facility] ([facility]) [address] [place] [address] WBC (Bld) [#/Vol] 10.65 10*3/uL High 4.00-10.60 [facility] Comment on above: Performed By: #### L [id number] #### [facility] ([facility]) [address] [place] [address] MAGNESIUMon 09-05-2023 Magnesium [Mass/Vol] 2.4 mg/dL Normal 1.9-2.7 [facility] Comment on above: Performed By: #### L [id number] #### [facility] [address] [place] [address] PHOSPHORUSon 09-05-2023 Magnesium [Mass/Vol] 5.7 mg/dL High 2.5-5.0 [facility] Comment on above: Performed By: #### L [id number] #### [facility] ([facility]) [address] [place] [address] BASIC METABOLIC PANELon 08-24 Anion gap [Moles/Vol] 12 mmol/L Normal 7-20 [facility] Comment on above: Performed By: #### L [id number] #### [facility] ([facility]) [address] [place] [address] Calcium [Mass/Vol] 8.1 mg/dL Low 8.6-10.3 [facility] Comment on above: Performed By: #### L [id number] #### [facility] ([facility]) [address] [place] [address] Chloride [Moles/Vol] 99 mmol/L Normal 98-107 [facility] Comment on above: Performed By: #### L [id number] #### [facility] ([facility]) [address] [place] [address] CO2 [Moles/Vol] 26 mmol/L Normal 21-31 [facility] Comment on above: Performed By: #### L [id number] #### [facility] ([facility]) [address] [place] [address] Creatinine [Mass/Vol] 3.38 mg/dL High 0.70-1.30 [facility] Comment on above: Performed By: #### L [id number] #### [facility] ([facility]) [address] [place] [address] GLOMERULAR FILTRATION RATE ML/MIN/1.73 SQ M.PREDICTED 18.7 mL/min/1.73m*2 Low >60.0 [facility] Comment on above: Result Comment: The [facility]???s estimated glomerular filtration rate (eGFR) will no longer include consideration of race in its calculation. The National Kidney Foundation???s eGFR Task Force developed new recommendations for the estimation of the glomerular filtration rate in the [place] They recommend immediate implementation of the new equation refit without the race variable in all laboratories because the calculation does not include race. In addition to not including race in the calculation and reporting, it included diversity in its development, and has acceptable performance characteristics and potential consequences that do not disproportionately affect any one group of individuals. Performed By: #### L [id number] #### [facility] ([facility]) [address] [place] [address] Glucose [Mass/Vol] 139 mg/dL High 70-100 [facility] Comment on above: Performed By: #### L [id number] #### [facility] ([facility]) [address] [place] [address] Potassium [Moles/Vol] 3.5 mmol/L Normal 3.5-5.1 [facility] Comment on above: Performed By: #### L [id number] #### [facility] ([facility]) [address] [place] [address] Sodium [Moles/Vol] 133 mmol/L Low 136-145 [facility] Comment on above: Performed By: #### L [id number] #### [facility] ([facility]) [address] [place] [address] Urea nitrogen [Mass/Vol] 64 mg/dL High 7-25 [facility] Comment on above: Performed By: #### L [id number] #### [facility] ([facility]) [address] [place] [address] UREA NITROGEN/CREATININE (MASS RATIO) IN SER/PLAS 18.9 Normal [facility] Comment on above: Performed By: #### L [id number] #### [facility] ([facility]) [address] [place] [address] CBCon 09-03-2023 Erythrocyte distribution width (RBC) [Ratio] 15.7 % High 11.5-15.0 [facility] Comment on above: Performed By: #### L [id number] #### [facility] ([facility]) [address] [place] [address] ERYTHROCYTE MEAN CORPUSCULAR HEMOGLOBIN CONCENTRATION (G/DL) BY AUTOMATED 33.2 g/dL Normal 32.0-35.0 [facility] Comment on above: Performed By: #### L [id number] #### [facility] [address] [place] [address] Hematocrit (Bld) [Volume fraction] 31.6 % Low 39.0-55.0 [facility] Comment on above: Performed By: #### L [id number] #### [facility] [address] [place] [address] Hemoglobin (Bld) [Mass/Vol] 10.5 g/dL Low 13.0-17.0 [facility] Comment on above: Performed By: #### L [id number] #### [facility] [address] [place] [address] MCH (RBC) [Entitic mass] 29.5 pg Normal 27.0-33.0 [facility] Comment on above: Performed By: #### L [id number] #### [facility] [address] [place] [address] MCV (RBC) [Entitic vol] 88.8 fL Normal 82.0-98.0 [facility] Comment on above: Performed By: #### L [id number] #### [facility] [address] [place] [address] PLATELETS (10*3/UL) IN BLOOD AUTOMATED COUNT 520 10*3/uL High 150-400 [facility] Comment on above: Performed By: #### L [id number] #### [facility] [address] [place] [address] RBC (Bld) [#/Vol] 3.56 10*6/uL Low 4.20-5.70 [facility] Comment on above: Performed By: #### L [id number] #### [facility] [address] [place] [address] WBC (Bld) [#/Vol] 14.08 10*3/uL High 4.00-10.60 [facility] Comment on above: Performed By: #### L [id number] #### [facility] [address] [place] [address] MAGNESIUMon 09-03-2023 Magnesium [Mass/Vol] 2.2 mg/dL Normal 1.9-2.7 [facility] Comment on above: Performed By: #### L [id number] #### [facility] ([facility]) [address] [place] [address] PHOSPHORUSon 09-03-2023 Magnesium [Mass/Vol] 4.3 mg/dL Normal 2.5-5.0 [facility] Comment on above: Performed By: #### L [id number] #### [facility] ([facility]) [address] [place] [address] BASIC METABOLIC PANELon Anion gap [Moles/Vol] 17 mmol/L Normal 7-20 [facility] Comment on above: Performed By: #### L [id number] #### [facility] ([facility]) [address] [place] [address] Calcium [Mass/Vol] 8.3 mg/dL Low 8.6-10.3 [facility] Comment on above: Performed By: #### L [id number] #### [facility] ([facility]) [address] [place] [address] Chloride [Moles/Vol] 102 mmol/L Normal 98-107 [facility] Comment on above: Performed By: #### L [id number] #### [facility] [address] [place] [address] CO2 [Moles/Vol] 25 mmol/L Normal 21-31 [facility] Comment on above: Performed By: #### L [id number] #### [facility] [address] [place] [address] Creatinine [Mass/Vol] 4.80 mg/dL High 0.70-1.30 [facility] Comment on above: Performed By: #### L [id number] #### [facility] ([facility]) [address] [place] [address] GLOMERULAR FILTRATION RATE ML/MIN/1.73 SQ M.PREDICTED 12.2 mL/min/1.73m*2 Low >60.0 [facility] Comment on above: Result Comment: The [facility]???s estimated glomerular filtration rate (eGFR) will no longer include consideration of race in its calculation. The National Kidney Foundation???s eGFR Task Force developed new recommendations for the estimation of the glomerular filtration rate in the [place] They recommend immediate implementation of the new equation refit without the race variable in all laboratories because the calculation does not include race. In addition to not including race in the calculation and reporting, it included diversity in its development, and has acceptable performance characteristics and potential consequences that do not disproportionately affect any one group of individuals. Performed By: #### L [id number] #### [facility] ([facility]) [address] [place] [address] Glucose [Mass/Vol] 157 mg/dL High 70-100 [facility] Comment on above: Performed By: #### L [id number] #### [facility] [place]) [address] [place] [address] Potassium [Moles/Vol] 3.6 mmol/L Normal 3.5-5.1 [facility] Comment on above: Performed By: #### L [id number] #### [facility] ([facility]) [address] [place] [address] Sodium [Moles/Vol] 140 mmol/L Normal 136-145 [facility] Comment on above: Performed By: #### L [id number] #### [facility] ([facility]) [address] [place] [address] Urea nitrogen [Mass/Vol] 106 mg/dL High 7-25 [facility] Comment on above: Performed By: #### L [id number] #### [facility] ([facility]) [address] [place] [address] UREA NITROGEN/CREATININE (MASS RATIO) IN SER/PLAS 22.1 Normal [facility] Comment on above: Performed By: #### L [id number] #### [facility] ([facility]) [address] [place] [address] CBCon 09-01-2023 Erythrocyte distribution width (RBC) [Ratio] 15.9 % High 11.5-15.0 [facility] Comment on above: Performed By: #### L [id number] #### [facility] ([facility]) [address] [place] [address] ERYTHROCYTE MEAN CORPUSCULAR HEMOGLOBIN CONCENTRATION (G/DL) BY AUTOMATED 32.8 g/dL Normal 32.0-35.0 [facility] Comment on above: Performed By: #### L [id number] #### [facility] ([facility]) [address] [place] [address] Hematocrit (Bld) [Volume fraction] 28.7 % Low 39.0-55.0 [facility] Comment on above: Performed By: #### L [id number] #### [facility] ([facility]) [address] [place] [address] Hemoglobin (Bld) [Mass/Vol] 9.4 g/dL Low 13.0-17.0 [facility] Comment on above: Performed By: #### L [id number] #### [facility] ([facility]) [address] [place] [address] MCH (RBC) [Entitic mass] 29.1 pg Normal 27.0-33.0 [facility] Comment on above: Performed By: #### L [id number] #### [facility] ([facility]) [address] [place] [address] MCV (RBC) [Entitic vol] 88.9 fL Normal 82.0-98.0 [facility] Comment on above: Performed By: #### L [id number] #### [facility] ([facility]) [address] [place] [address] PLATELETS (10*3/UL) IN BLOOD AUTOMATED COUNT 590 10*3/uL High 150-400 [facility] Comment on above: Performed By: #### L [id number] #### [facility] ([facility]) [address] [place] [address] RBC (Bld) [#/Vol] 3.23 10*6/uL Low 4.20-5.70 [facility] Comment on above: Performed By: #### L [id number] #### [facility] ([facility]) [address] [place] [address] WBC (Bld) [#/Vol] 12.12 10*3/uL High 4.00-10.60 [facility] Comment on above: Performed By: #### L [id number] #### [facility] ([facility]) [address] [place] [address] MAGNESIUMon 09-01-2023 Magnesium [Mass/Vol] 2.7 mg/dL Normal 1.9-2.7 [facility] Comment on above: Performed By: #### L [id number] #### [facility] ([facility]) [address] [place] [address] PHOSPHORUSon 09-01-2023 Magnesium [Mass/Vol] 2.5 mg/dL Normal 2.5-5.0 [facility] Comment on above: Performed By: #### L [id number] #### [facility] ([facility]) [address] [place] [address] PROCALCITONIN TESTon 024 PROCALCITONIN IN BLOOD 7.44 ng/mL Critically high 0.00-0.1 0 [facility] Comment on above: Result Comment: Susp ected Lower Respiratory Tract Infection: 0.1-0.25 ng/mL - Low likelihood for bacterial infection;Antibiotics discouraged.* >0.25 ng/mL - Increased likelihood bacterial infection;Antibiotics encouraged. Suspected Sepsis: Strongly consider initiating antibiotics in all unstable patients. 0.1-0.5 ng/mL - Low likelihood for sepsis; Antibiotics discouraged.* >0.5 ng/mL - Increased likelihood sepsis; Antibiotics encouraged. >2.0 ng/mL - High risk of sepsis/septic shock; Antibiotics strongly encouraged. *Recommend retesting PCT within 6-12 hours if clinically indicated and initial PCT<0.5ng/mL Performed By: #### L [id number] #### [facility] ([facility]) [address] [place] [address] VANCOMYCIN, RANDOMon 08-31- 024 VANCOMYCIN (UG/ML) IN SER/PLAS 14.1 ug/mL Low 20.0-40.0 [facility] Comment on above: Performed By: #### L [id number] #### [facility] ([facility]) [address] [place] [address] BASIC METABOLIC PANELon 04-0 Anion gap [Moles/Vol] 13 mmol/L Normal 7-20 [facility] Comment on above: Performed By: #### L [id number] #### [facility] [address] [place] [address] Calcium [Mass/Vol] 8.3 mg/dL Low 8.6-10.3 [facility] Comment on above: Performed By: #### L [id number] #### [facility] ([facility]) [address] [place] [address] Chloride [Moles/Vol] 100 mmol/L Normal 98-107 [facility] Comment on above: Performed By: #### L [id number] #### [facility] ([facility]) [address] [place] [address] CO2 [Moles/Vol] 28 mmol/L Normal 21-31 [facility] Comment on above: Performed By: #### L [id number] #### [facility] ([facility]) [address] [place] [address] Creatinine [Mass/Vol] 4.88 mg/dL High 0.70-1.30 [facility] Comment on above: Performed By: #### L [id number] #### [facility] ([facility]) [address] [place] [address] GLOMERULAR FILTRATION RATE ML/MIN/1.73 SQ M.PREDICTED 12.0 mL/min/1.73m*2 Low >60.0 [facility] Comment on above: Result Comment: The [facility]???s estimated glomerular filtration rate (eGFR) will no longer include consideration of race in its calculation. The National Kidney Foundation???s eGFR Task Force developed new recommendations for the estimation of the glomerular filtration rate in the [place] They recommend immediate implementation of the new equation refit without the race variable in all laboratories because the calculation does not include race. In addition to not including race in the calculation and reporting, it included diversity in its development, and has acceptable performance characteristics and potential consequences that do not disproportionately affect any one group of individuals. Performed By: #### L [id number] #### [facility] ([facility]) [address] [place] [address] Glucose [Mass/Vol] 197 mg/dL High 70-100 [facility] Comment on above: Performed By: #### L [id number] #### [facility] ([facility]) [address] [place] [address] Potassium [Moles/Vol] 3.7 mmol/L Normal 3.5-5.1 [facility] Comment on above: Performed By: #### L [id number] #### [facility] ([facility]) [address] [place] [address] Sodium [Moles/Vol] 137 mmol/L Normal 136-145 [facility] Comment on above: Performed By: #### L [id number] #### [facility] [address] [place] [address] Urea nitrogen [Mass/Vol] 84 mg/dL High 7-25 [facility] Comment on above: Performed By: #### L [id number] #### [facility] ([facility]) [address] [place] [address] UREA NITROGEN/CREATININE (MASS RATIO) IN SER/PLAS 17.2 Normal [facility] Comment on above: Performed By: #### L [id number] #### [facility] ([facility]) [address] [place] [address] CBCon 08-31-2023 Erythrocyte distribution width (RBC) [Ratio] 16.2 % High 11.5-15.0 [facility] Comment on above: Performed By: #### L [id number] #### [facility] ([facility]) [address] [place] [address] ERYTHROCYTE MEAN CORPUSCULAR HEMOGLOBIN CONCENTRATION (G/DL) BY AUTOMATED 32.1 g/dL Normal 32.0-35.0 [facility] Comment on above: Performed By: #### L [id number] #### [facility] ([facility]) [address] [place] [address] Hematocrit (Bld) [Volume fraction] 29.0 % Low 39.0-55.0 [facility] Comment on above: Performed By: #### L [id number] #### [facility] ([facility]) [address] [place] [address] Hemoglobin (Bld) [Mass/Vol] 9.3 g/dL Low 13.0-17.0 [facility] Comment on above: Performed By: #### L [id number] #### [facility] [address] [place] [address] MCH (RBC) [Entitic mass] 28.8 pg Normal 27.0-33.0 [facility] Comment on above: Performed By: #### L [id number] #### [facility] [address] [place] [address] MCV (RBC) [Entitic vol] 89.8 fL Normal 82.0-98.0 [facility] Comment on above: Performed By: #### L [id number] #### [facility] ([facility]) [address] [place] [address] PLATELETS (10*3/UL) IN BLOOD AUTOMATED COUNT 671 10*3/uL High 150-400 [facility] Comment on above: Performed By: #### L [id number] #### [facility] ([facility]) [address] [place] [address] RBC (Bld) [#/Vol] 3.23 10*6/uL Low 4.20-5.70 [facility] Comment on above: Performed By: #### L [id number] #### [facility] ([facility]) [address] [place] [address] WBC (Bld) [#/Vol] 11.34 10*3/uL High 4.00-10.60 [facility] Comment on above: Performed By: #### L [id number] #### [facility] ([facility]) [address] [place] [address] CBC WITH AUTO DIFFERENTIALon 08-30-2023 Erythrocyte distribution width (RBC) [Ratio] 16.3 % High 11.5-15.0 [facility] Comment on above: Performed By: #### L [id number] #### [facility] ([facility]) [address] [place] [address] ERYTHROCYTE MEAN CORPUSCULAR HEMOGLOBIN CONCENTRATION (G/DL) BY AUTOMATED 31.7 g/dL Low 32.0-35.0 [facility] Comment on above: Performed By: #### L [id number] #### [facility] [address] [place] [address] Hematocrit (Bld) [Volume fraction] 30.9 % Low 39.0-55.0 [facility] Comment on above: Performed By: #### L [id number] #### [facility] ([facility]) [address] [place] [address] Hemoglobin (Bld) [Mass/Vol] 9.8 g/dL Low 13.0-17.0 [facility] Comment on above: Performed By: #### L [id number] #### [facility] [address] [place] [address] MCH (RBC) [Entitic mass] 28.9 pg Normal 27.0-33.0 [facility] Comment on above: Performed By: #### L [id number] #### [facility] [address] [place] [address] MCV (RBC) [Entitic vol] 91.2 fL Normal 82.0-98.0 [facility] Comment on above: Performed By: #### L [id number] #### [facility] [address] [place] [address] NRBC (PER 100 WBCS) BY AUTOMATED COUNT 0.0 % Normal 0 [facility] Comment on above: Performed By: #### L [id number] #### [facility] ([facility]) [address] [place] [address] PLATELETS (10*3/UL) IN BLOOD AUTOMATED COUNT 748 10*3/uL High 150-400 [facility] Comment on above: Performed By: #### L [id number] #### [facility] ([facility]) [address] [place] [address] RBC (Bld) [#/Vol] 3.39 10*6/uL Low 4.20-5.70 [facility] Comment on above: Performed By: #### L [id number] #### [facility] ([facility]) [address] [place] [address] WBC (Bld) [#/Vol] 24.53 10*3/uL High 4.00-10.60 [facility] Comment on above: Performed By: #### L [id number] #### [facility] ([facility]) [address] [place] [address] MANUAL DIFFERENTIALon 2023 BASOPHILS (10*3/UL) IN BLOOD BY CALCULATION 0.17 10*3/uL Normal 0.00-0.20 [facility] Comment on above: Performed By: #### L [id number] #### [facility] ([facility]) [address] [place] [address] BASOPHILS/100 LEUKOCYTES IN BLOOD BY AUTOMATED COUNT 0.7 % Normal 0.0-1.0 [facility] Comment on above: Performed By: #### L [id number] #### [facility] ([facility]) [address] [place] [address] EOSINOPHILS (10*3/UL) IN BLOOD BY CALCULATION 0.54 10*3/uL High 0.00-0.50 [facility] Comment on above: Performed By: #### L [id number] #### [facility] ([facility]) [address] [place] [address] EOSINOPHILS/100 LEUKOCYTES IN BLOOD BY AUTOMATED COUNT 2.2 % Normal 0.0-6.0 [facility] Comment on above: Performed By: #### L [id number] #### [facility] ([facility]) [address] [place] [address] IMMATURE GRANULOCYTES (10*3/UL) IN BLOOD BY CALCULATION 0.17 10*3/uL Normal 0.00-0.20 [facility] Comment on above: Performed By: #### L [id number] #### [facility] ([facility]) [address] [place] [address] IMMATURE GRANULOCYTES/100 LEUKOCYTES IN BLOOD BY AUTOMATED COUNT 0.7 % Normal 0.0-1.0 [facility] Comment on above: Performed By: #### L [id number] #### [facility] ([facility]) [address] [place] [address] LYMPHOCYTES (10*3/UL) IN BLOOD BY CALCULATION 1.82 10*3/uL Normal 1.20-4.00 [facility] Comment on above: Performed By: #### L [id number] #### [facility] ([facility]) [address] [place] [address] LYMPHOCYTES/100 LEUKOCYTES IN BLOOD BY AUTOMATED COUNT 7.4 % Low 20.0-45.0 [facility] Comment on above: Performed By: #### L [id number] #### [facility] ([facility]) [address] [place] [address] MONOCYTES (10*3/UL) IN BLOOD BY CALCUATION 1.84 10*3/uL High 0.10-1.00 [facility] Comment on above: Performed By: #### L [id number] #### [facility] ([facility]) [address] [place] [address] MONOCYTES/100 LEUKOCYTES IN BLOOD BY AUTOMATED COUNT 7.5 % Normal 5.0-12.0 [facility] Comment on above: Performed By: #### L [id number] #### [facility] ([facility]) [address] [place] [address] NEUTROPHILS (10*3/UL) IN BLOOD BY CALCULATION 20.0 10*3/uL High 1.6-7.6 [facility] Comment on above: Performed By: #### L [id number] #### [facility] ([facility]) [address] [place] [address] NEUTROPHILS/100 LEUKOCYTES IN BLOOD BY AUTOMATED COUNT 81.5 % High 40.0-72.0 [facility] Comment on above: Performed By: #### L [id number] #### [facility] ([facility]) [address] [place] [address] PROCALCITONIN TESTon 024 PROCALCITONIN IN BLOOD 23.57 ng/mL Critically high 0.00-0. 10 [facility] Comment on above: Result Comment: Susp ected Lower Respiratory Tract Infection: 0.1-0.25 ng/mL - Low likelihood for bacterial infection;Antibiotics discouraged.* >0.25 ng/mL - Increased likelihood bacterial infection;Antibiotics encouraged. Suspected Sepsis: Strongly consider initiating antibiotics in all unstable patients. 0.1-0.5 ng/mL - Low likelihood for sepsis; Antibiotics discouraged.* >0.5 ng/mL - Increased likelihood sepsis; Antibiotics encouraged. >2.0 ng/mL - High risk of sepsis/septic shock; Antibiotics strongly encouraged. *Recommend retesting PCT within 6-12 hours if clinically indicated and initial PCT<0.5ng/mL Performed By: #### L [id number] #### [facility] ([facility]) [address] [place] [address] BASIC METABOLIC PANELon 04-0 Anion gap [Moles/Vol] 16 mmol/L Normal 7-20 [facility] Comment on above: Performed By: #### L [id number] #### [facility] ([facility]) [address] [place] [address] Calcium [Mass/Vol] 8.7 mg/dL Normal 8.6-10.3 [facility] Comment on above: Performed By: #### L [id number] #### [facility] ([facility]) [address] [place] [address] Chloride [Moles/Vol] 101 mmol/L Normal 98-107 [facility] Comment on above: Performed By: #### L [id number] #### [facility] ([facility]) [address] [place] [address] CO2 [Moles/Vol] 26 mmol/L Normal 21-31 [facility] Comment on above: Performed By: #### L [id number] #### [facility] ([facility]) [address] [place] [address] Creatinine [Mass/Vol] 4.77 mg/dL High 0.70-1.30 [facility] Comment on above: Performed By: #### L [id number] #### [facility] ([facility]) [address] [place] [address] GLOMERULAR FILTRATION RATE ML/MIN/1.73 SQ M.PREDICTED 12.3 mL/min/1.73m*2 Low >60.0 [facility] Comment on above: Result Comment: The [facility]???s estimated glomerular filtration rate (eGFR) will no longer include consideration of race in its calculation. The National Kidney Foundation???s eGFR Task Force developed new recommendations for the estimation of the glomerular filtration rate in the [place] They recommend immediate implementation of the new equation refit without the race variable in all laboratories because the calculation does not include race. In addition to not including race in the calculation and reporting, it included diversity in its development, and has acceptable performance characteristics and potential consequences that do not disproportionately affect any one group of individuals. Performed By: #### L [id number] #### [facility] ([facility]) [address] [place] [address] Glucose [Mass/Vol] 131 mg/dL High 70-100 [facility] Comment on above: Performed By: #### L [id number] #### [facility] ([facility]) [address] [place] [address] Potassium [Moles/Vol] 3.6 mmol/L Normal 3.5-5.1 [facility] Comment on above: Performed By: #### L [id number] #### [facility] ([facility]) [address] [place] [address] Sodium [Moles/Vol] 139 mmol/L Normal 136-145 [facility] Comment on above: Performed By: #### L [id number] #### [facility] [address] [place] [address] Urea nitrogen [Mass/Vol] 59 mg/dL High 7-25 [facility] Comment on above: Performed By: #### L [id number] #### [facility] [address] [place] [address] UREA NITROGEN/CREATININE (MASS RATIO) IN SER/PLAS 12.4 Normal [facility] Comment on above: Performed By: #### L [id number] #### [facility] ([facility]) [address] [place] [address] CBCon 08-29-2023 Erythrocyte distribution width (RBC) [Ratio] 16.3 % High 11.5-15.0 [facility] Comment on above: Performed By: #### L [id number] #### [facility] ([facility]) [address] [place] [address] ERYTHROCYTE MEAN CORPUSCULAR HEMOGLOBIN CONCENTRATION (G/DL) BY AUTOMATED 32.5 g/dL Normal 32.0-35.0 [facility] Comment on above: Performed By: #### L [id number] #### [facility] ([facility]) [address] [place] [address] Hematocrit (Bld) [Volume fraction] 28.9 % Low 39.0-55.0 [facility] Comment on above: Performed By: #### L [id number] #### [facility] ([facility]) [address] [address] Hemoglobin (Bld) [Mass/Vol] 9.4 g/dL Low 13.0-17.0 [facility] Comment on above: Performed By: #### L [id number] #### [facility] ([facility]) [address] [place] [address] MCH (RBC) [Entitic mass] 28.9 pg Normal 27.0-33.0 [facility] Comment on above: Performed By: #### L [id number] #### [facility] ([facility]) [address] [place] [address] MCV (RBC) [Entitic vol] 88.9 fL Normal 82.0-98.0 [facility] Comment on above: Performed By: #### L [id number] #### [facility] ([facility]) [address] [place] [address] PLATELETS (10*3/UL) IN BLOOD AUTOMATED COUNT 742 10*3/uL High 150-400 [facility] Comment on above: Performed By: #### L [id number] #### [facility] ([facility]) [address] [place] [address] RBC (Bld) [#/Vol] 3.25 10*6/uL Low 4.20-5.70 [facility] Comment on above: Performed By: #### L [id number] #### [facility] ([facility]) [address] [place] [address] WBC (Bld) [#/Vol] 34.28 10*3/uL High 4.00-10.60 [facility] Comment on above: Performed By: #### L [id number] #### [facility] ([facility]) [address] [place] [address] MAGNESIUMon 08-29-2023 Magnesium [Mass/Vol] 2.2 mg/dL Normal 1.9-2.7 [facility] Comment on above: Performed By: #### L [id number] #### [facility] ([facility]) [address] [place] [address] PHOSPHORUSon 08-29-2023 Magnesium [Mass/Vol] 2.6 mg/dL Normal 2.5-5.0 [facility] Comment on above: Performed By: #### L [id number] #### [facility] ([facility]) [address] [place] [address] URINALYSISon 08-29-2023 BILIRUBIN, TOTAL PRESENCE IN URINE Negative Normal Negative [facility] Comment on above: Performed By: #### L [id number] #### [facility] [facility]) [address] [place] [address] Clarity (U) Turbid Abnormal Clear [facility] Comment on above: Performed By: #### L [id number] #### [facility] ([facility]) [address] [place] [address] Color (U) Red Abnormal Yellow [facility] Comment on above: Performed By: #### L [id number] #### [facility] ([facility]) [address] [place] [address] Glucose (U) [Mass/Vol] Negative Normal Negative Un [facility] Comment on above: Performed By: #### L [id number] #### [facility] ([facility]) [address] [place] [address] HEMOGLOBIN PRESENCE IN URINE Large Abnormal Negative [facility] Comment on above: Performed By: #### L [id number] #### [facility] ([facility]) [address] [place] [address] Ketones Ql (U) Trace Abnormal Negative [facility] Comment on above: Performed By: #### L [id number] #### [facility] ([facility]) [address] [place] [address] LEUKOCYTE ESTERASE PRESENCE IN URINE BY TEST STRIP Moderate Abnormal Negative [facility] Comment on above: Performed By: #### L [id number] #### [facility] ([facility]) [address] [place] [address] NITRITE PRESENCE IN URINE Negative Normal Negative [facility] Comment on above: Performed By: #### L [id number] #### [facility] ([facility]) [address] [place] [address] pH (U) 5.0 [pH] Normal 5.0-8.0 [facility] Comment on above: Performed By: #### L [id number] #### [facility] ([facility]) [address] [place] [address] Protein (U) [Mass/Vol] mg/dL Abnormal Negative [facility] Comment on above: Performed By: #### L [id number] #### [facility] ([facility]) [address] [place] [address] Specific gravity (U) [Rel density] 1.026 High 1.015-1.020 [facility] Comment on above: Performed By: #### L [id number] #### [facility] ([facility]) [address] [place] [address] UROBILINOGEN (EU/DL) IN URINE 2.0 EU/dL Abnormal Negative [facility] Comment on above: Performed By: #### L [id number] #### [facility] ([facility]) [address] [place] [address] URINALYSIS MICROSCOPICon CASTS IN URINE Normal [facility] Comment on above: Performed By: #### L [id number] #### [facility] ([facility]) [address] [place] [address] CRYSTALS IN URINE Normal [facility] Comment on above: Performed By: #### L [id number] #### [facility] ([facility]) [address] [place] [address] MUCUS (#/HPF) IN URINE SEDIMENT Many Abnormal None Seen, Occasional, Few [facility] Comment on above: Performed By: #### L [id number] #### [facility] ([facility]) [address] [place] [address] RBC (#/HPF) IN URINE SEDIMENT 21-50 Abnormal None Seen [facility] Comment on above: Performed By: #### L [id number] #### [facility] ([facility]) [address] [place] [address] SQUAMOUS EPITHELIAL CELLS (#/HPF) IN URINE SEDIMENT None Seen Normal None Seen, Occasional [facility] Comment on above: Performed By: #### L [id number] #### [facility] ([facility]) [address] [place] [address] WBC (LEUKOCYTE) (#/HPF) IN URINE SEDIMENT 21-50 Abnormal None Seen [facility] Comment on above: Performed By: #### L [id number] #### [facility] ([facility]) [address] [place] [address] URINE CULTURE, ROUTINEon Bacteria identified Cx Nom (U) KLEBSIELLA PNEUMONIAE Abnormal [facility] Comment on above: Result Comment: >100 ,000 CFU/Ml Klebsiella pneumoniae Susceptibility to Follow Performed By: #### L [id number] #### [facility] ([facility]) [address] [place] [address] VANCOMYCIN, TROUGHon 024 VANCOMYCIN (UG/ML) IN SER/PLAS - TROUGH 8.8 ug/mL Normal 5.0-20.0 [facility] Comment on above: Performed By: #### L [id number] #### [facility] ([facility]) [address] [place] [address] AMMONIAon 08-28-2023 AMMONIA (UMOL/L) IN PLASMA 23 umol/L Normal 18-72 [facility] Comment on above: Performed By: #### L [id number] #### [facility] ([facility]) [address] [place] [address] BLOOD CULTUREon 08-28-2023 Bacteria identified Cx Nom (Bld) No growth at 5 days Normal [facility] Comment on above: Performed By: #### L [id number] #### [facility] ([facility]) [address] [place] [address] Bacteria identified Cx Nom (Bld) No growth at 5 days Normal [facility] Comment on above: Performed By: #### L [id number] #### [facility] ([facility]) [address] [place] [address] CBCon 08-28-2023 Erythrocyte distribution width (RBC) [Ratio] 15.9 % High 11.5-15.0 [facility] Comment on above: Performed By: #### L [id number] #### [facility] ([facility]) [address] [place] [address] ERYTHROCYTE MEAN CORPUSCULAR HEMOGLOBIN CONCENTRATION (G/DL) BY AUTOMATED 33.4 g/dL Normal 32.0-35.0 [facility] Comment on above: Performed By: #### L [id number] #### [facility] ([facility]) [address] [place] [address] Hematocrit (Bld) [Volume fraction] 30.2 % Low 39.0-55.0 [facility] Comment on above: Performed By: #### L [id number] #### [facility] ([facility]) [address] [place] [address] Hemoglobin (Bld) [Mass/Vol] 10.1 g/dL Low 13.0-17.0 [facility] Comment on above: Performed By: #### L [id number] #### [facility] ([facility]) [address] [place] [address] MCH (RBC) [Entitic mass] 29.8 pg Normal 27.0-33.0 [facility] Comment on above: Performed By: #### L [id number] #### [facility] ([facility]) [address] [place] [address] MCV (RBC) [Entitic vol] 89.1 fL Normal 82.0-98.0 [facility] Comment on above: Performed By: #### L [id number] #### [facility] ([facility]) [address] [place] [address] PLATELETS (10*3/UL) IN BLOOD AUTOMATED COUNT 754 10*3/uL High 150-400 [facility] Comment on above: Performed By: #### L [id number] #### [facility] ([facility]) [address] [place] [address] RBC (Bld) [#/Vol] 3.39 10*6/uL Low 4.20-5.70 [facility] Comment on above: Performed By: #### L [id number] #### [facility] ([facility]) [address] [place] [address] WBC (Bld) [#/Vol] 33.80 10*3/uL High 4.00-10.60 [facility] Comment on above: Performed By: #### L [id number] #### [facility] ([facility]) [address] [place] [address] COMPREHENSIVE METABOLIC PANE Neil 08-28-2023 Albumin [Mass/Vol] 2.7 g/dL Low 3.5-5.7 [facility] Comment on above: Performed By: #### L [id number] #### [facility] ([facility]) [address] [place] [address] ALP [Catalytic activity/Vol] 91 U/L Normal 34-104 [facility] Comment on above: Performed By: #### L [id number] #### [facility] ([facility]) [address] [place] [address] ALT [Catalytic activity/Vol] 9 U/L Normal 7-52 [facility] Comment on above: Performed By: #### L [id number] #### [facility] ([facility]) [address] [place] [address] Anion gap [Moles/Vol] 12 mmol/L Normal 7-20 [facility] Comment on above: Performed By: #### L [id number] #### [facility] ([facility]) [address] [place] [address] AST [Catalytic activity/Vol] 18 U/L Normal 13-39 [facility] Comment on above: Performed By: #### L [id number] #### [facility] ([facility]) [address] [place] [address] Bilirubin [Mass/Vol] 0.6 mg/dL Normal 0.3-1.0 [facility] Comment on above: Performed By: #### L [id number] #### [facility] ([facility]) [address] [place] [address] Calcium [Mass/Vol] 8.6 mg/dL Normal 8.6-10.3 [facility] Comment on above: Performed By: #### L [id number] #### [facility] [address] [place] [address] Chloride [Moles/Vol] 99 mmol/L Normal 98-107 [facility] Comment on above: Performed By: #### L [id number] #### [facility] ([facility]) [address] [place] [address] CO2 [Moles/Vol] 30 mmol/L Normal 21-31 [facility] Comment on above: Performed By: #### L [id number] #### [facility] ([facility]) [address] [place] [address] Creatinine [Mass/Vol] 3.75 mg/dL High 0.70-1.30 [facility] Comment on above: Performed By: #### L [id number] #### [facility] ([facility]) [address] [place] [address] GLOMERULAR FILTRATION RATE ML/MIN/1.73 SQ M.PREDICTED 16.5 mL/min/1.73m*2 Low >60.0 [facility] Comment on above: Result Comment: The [facility]???s estimated glomerular filtration rate (eGFR) will no longer include consideration of race in its calculation. The National Kidney Foundation???s eGFR Task Force developed new recommendations for the estimation of the glomerular filtration rate in the [place] They recommend immediate implementation of the new equation refit without the race variable in all laboratories because the calculation does not include race. In addition to not including race in the calculation and reporting, it included diversity in its development, and has acceptable performance characteristics and potential consequences that do not disproportionately affect any one group of individuals. Performed By: #### L [id number] #### [facility] ([facility]) [address] [place] [address] Glucose [Mass/Vol] 122 mg/dL High 70-100 [facility] Comment on above: Performed By: #### L [id number] #### [facility] ([facility]) [address] [place] [address] Potassium [Moles/Vol] 3.6 mmol/L Normal 3.5-5.1 [facility] Comment on above: Performed By: #### L [id number] #### [facility] ([facility]) [address] [place] [address] Protein [Mass/Vol] 7.1 g/dL Normal 6.0-8.3 [facility] Comment on above: Performed By: #### L [id number] #### [facility] ([facility]) [address] [place] [address] Sodium [Moles/Vol] 137 mmol/L Normal 136-145 [facility] Comment on above: Performed By: #### L [id number] #### [facility] ([facility]) [address] [place] [address] Urea nitrogen [Mass/Vol] 41 mg/dL High 7-25 [facility] Comment on above: Performed By: #### L [id number] #### [facility] ([facility]) [address] [place] [address] UREA NITROGEN/CREATININE (MASS RATIO) IN SER/PLAS 10.9 Normal [facility] Comment on above: Performed By: #### L [id number] #### [facility] ([facility]) [address] [place] [address] PROCALCITONIN TESTon 024 PROCALCITONIN IN BLOOD 16.65 ng/mL Critically high 0.00-0. 10 [facility] Comment on above: Result Comment: Susp ected Lower Respiratory Tract Infection: 0.1-0.25 ng/mL - Low likelihood for bacterial infection;Antibiotics discouraged.* >0.25 ng/mL - Increased likelihood bacterial infection;Antibiotics encouraged. Suspected Sepsis: Strongly consider initiating antibiotics in all unstable patients. 0.1-0.5 ng/mL - Low likelihood for sepsis; Antibiotics discouraged.* >0.5 ng/mL - Increased likelihood sepsis; Antibiotics encouraged. >2.0 ng/mL - High risk of sepsis/septic shock; Antibiotics strongly encouraged. *Recommend retesting PCT within 6-12 hours if clinically indicated and initial PCT<0.5ng/mL Performed By: #### L [id number] #### [facility] ([facility]) [address] [place] [address] SPUTUM CULTUREon 08-28-2023 GRAM STAIN RESULT Normal [facility] Comment on above: Order Comment: Moder ate Growth Colonies Consistent with Upper Respiratory [place] Result Comment: 10-2 5 Squamous Epithelial Cells Per Low Power Field >25 Polys Per Low Power Field Many Gram positive cocci in chains Moderate Gram negative bacilli Rare Yeast Performed By: #### L [id number] #### [facility] ([facility]) [address] [place] [address] TSH3 REFLEX TO FT4on 024 THYROTROPIN (MIU/L) IN SER/PLAS BY DETECTION LIMIT <= 0.05 MIU/L 5.27 mIU/L Normal 0.34-5.60 [facility] Comment on above: Performed By: #### L [id number] #### [facility] ([facility]) [address] [place] [address] BASIC METABOLIC PANELon Anion gap [Moles/Vol] 10 mmol/L Normal 7-20 [facility] Comment on above: Performed By: #### L [id number] #### [facility] ([facility]) [address] [place] [address] Calcium [Mass/Vol] 8.1 mg/dL Low 8.6-10.3 [facility] Comment on above: Performed By: #### L [id number] #### [facility] ([facility]) [address] [place] [address] Chloride [Moles/Vol] 95 mmol/L Low 98-107 [facility] Comment on above: Performed By: #### L [id number] #### [facility] ([facility]) [address] [place] [address] CO2 [Moles/Vol] 30 mmol/L Normal 21-31 [facility] Comment on above: Performed By: #### L [id number] #### [facility] ([facility]) [address] [place] [address] Creatinine [Mass/Vol] 3.38 mg/dL High 0.70-1.30 [facility] Comment on above: Performed By: #### L [id number] #### [facility] ([facility]) [address] [place] [address] GLOMERULAR FILTRATION RATE ML/MIN/1.73 SQ M.PREDICTED 18.7 mL/min/1.73m*2 Low >60.0 [facility] Comment on above: Result Comment: The [facility]???s estimated glomerular filtration rate (eGFR) will no longer include consideration of race in its calculation. The National Kidney Foundation???s eGFR Task Force developed new recommendations for the estimation of the glomerular filtration rate in the [place] They recommend immediate implementation of the new equation refit without the race variable in all laboratories because the calculation does not include race. In addition to not including race in the calculation and reporting, it included diversity in its development, and has acceptable performance characteristics and potential consequences that do not disproportionately affect any one group of individuals. Performed By: #### L [id number] #### [facility] ([facility]) [address] [place] [address] Glucose [Mass/Vol] 105 mg/dL High 70-100 [facility] Comment on above: Performed By: #### L [id number] #### [facility] ([facility]) [address] [place] [address] Potassium [Moles/Vol] 3.3 mmol/L Low 3.5-5.1 [facility] Comment on above: Performed By: #### L [id number] #### [facility] ([facility]) [address] [place] [address] Sodium [Moles/Vol] 132 mmol/L Low 136-145 [facility] Comment on above: Performed By: #### L [id number] #### [facility] [address] [place] [address] Urea nitrogen [Mass/Vol] 57 mg/dL High 7-25 [facility] Comment on above: Performed By: #### L [id number] #### [facility] [address] [place] [address] UREA NITROGEN/CREATININE (MASS RATIO) IN SER/PLAS 16.9 Normal [facility] Comment on above: Performed By: #### L [id number] #### [facility] [address] [place] [address] CBCon 08-27-2023 Erythrocyte distribution width (RBC) [Ratio] 15.5 % High 11.5-15.0 [facility] Comment on above: Performed By: #### L [id number] #### [facility] [address] [place] [address] ERYTHROCYTE MEAN CORPUSCULAR HEMOGLOBIN CONCENTRATION (G/DL) BY AUTOMATED 32.3 g/dL Normal 32.0-35.0 [facility] Comment on above: Performed By: #### L [id number] #### [facility] ([facility]) [address] [place] [address] Hematocrit (Bld) [Volume fraction] 29.7 % Low 39.0-55.0 [facility] Comment on above: Performed By: #### L [id number] #### [facility] ([facility]) [address] [place] [address] Hemoglobin (Bld) [Mass/Vol] 9.6 g/dL Low 13.0-17.0 [facility] Comment on above: Performed By: #### L [id number] #### [facility] [address] [place] [address] MCH (RBC) [Entitic mass] 28.9 pg Normal 27.0-33.0 [facility] Comment on above: Performed By: #### L [id number] #### [facility] ([facility]) [address] [place] [address] MCV (RBC) [Entitic vol] 89.5 fL Normal 82.0-98.0 [facility] Comment on above: Performed By: #### L [id number] #### [facility] ([facility]) [address] [place] [address] PLATELETS (10*3/UL) IN BLOOD AUTOMATED COUNT 803 10*3/uL High 150-400 [facility] Comment on above: Performed By: #### L [id number] #### [facility] ([facility]) [address] [place] [address] RBC (Bld) [#/Vol] 3.32 10*6/uL Low 4.20-5.70 [facility] Comment on above: Performed By: #### L [id number] #### [facility] ([facility]) [address] [place] [address] WBC (Bld) [#/Vol] 13.92 10*3/uL High 4.00-10.60 [facility] Comment on above: Performed By: #### L [id number] #### [facility] ([facility]) [address] [place] [address] MAGNESIUMon 08-27-2023 Magnesium [Mass/Vol] 2.4 mg/dL Normal 1.9-2.7 [facility] Comment on above: Performed By: #### L [id number] #### [facility] ([facility]) [address] [place] [address] PHOSPHORUSon 08-27-2023 Magnesium [Mass/Vol] 3.3 mg/dL Normal 2.5-5.0 [facility] Comment on above: Performed By: #### L [id number] #### [facility] [address] [place] [address] BASIC METABOLIC PANELon 04-0 Anion gap [Moles/Vol] 10 mmol/L Normal 7-20 [facility] Comment on above: Performed By: #### L [id number] #### [facility] ([facility]) [address] [place] [address] Calcium [Mass/Vol] 7.8 mg/dL Low 8.6-10.3 [facility] Comment on above: Performed By: #### L [id number] #### [facility] ([facility]) [address] [place] [address] Chloride [Moles/Vol] 96 mmol/L Low 98-107 [facility] Comment on above: Performed By: #### L [id number] #### [facility] ([facility]) [address] [place] [address] CO2 [Moles/Vol] 32 mmol/L High 21-31 [facility] Comment on above: Performed By: #### L [id number] #### [facility] ([facility]) [address] [place] [address] Creatinine [Mass/Vol] 2.38 mg/dL High 0.70-1.30 [facility] Comment on above: Performed By: #### L [id number] #### [facility] ([facility]) [address] [place] [address] GLOMERULAR FILTRATION RATE ML/MIN/1.73 SQ M.PREDICTED 28.4 mL/min/1.73m*2 Low >60.0 [facility] Comment on above: Result Comment: The [facility]???s estimated glomerular filtration rate (eGFR) will no longer include consideration of race in its calculation. The National Kidney Foundation???s eGFR Task Force developed new recommendations for the estimation of the glomerular filtration rate in the [place] They recommend immediate implementation of the new equation refit without the race variable in all laboratories because the calculation does not include race. In addition to not including race in the calculation and reporting, it included diversity in its development, and has acceptable performance characteristics and potential consequences that do not disproportionately affect any one group of individuals. Performed By: #### L [id number] #### [facility] ([facility]) [address] [place] [address] Glucose [Mass/Vol] 123 mg/dL High 70-100 [facility] Comment on above: Performed By: #### L [id number] #### [facility] ([facility]) [address] [place] [address] Potassium [Moles/Vol] 3.8 mmol/L Normal 3.5-5.1 [facility] Comment on above: Performed By: #### L [id number] #### [facility] ([facility]) [address] [place] [address] Sodium [Moles/Vol] 134 mmol/L Low 136-145 [facility] Comment on above: Performed By: #### L [id number] #### [facility] ([facility]) [address] [place] [address] Urea nitrogen [Mass/Vol] 33 mg/dL High 7-25 [facility] Comment on above: Performed By: #### L [id number] #### [facility] ([facility]) [address] [place] [address] UREA NITROGEN/CREATININE (MASS RATIO) IN SER/PLAS 13.9 Normal [facility] Comment on above: Performed By: #### L [id number] #### [facility] ([facility]) [address] [place] [address] CBC WITH AUTO DIFFERENTIALon 08-26-2023 Basophils (Bld) [#/Vol] 0.15 10*3/uL Normal 0.00-0.20 [facility] Comment on above: Performed By: #### L [id number] #### [facility] ([facility]) [address] [place] [address] Basophils/100 WBC (Bld) 1.2 % High 0.0-1.0 [facility] Comment on above: Performed By: #### L [id number] #### [facility] ([facility]) [address] [place] [address] Eosinophils (Bld) [#/Vol] 0.30 10*3/uL Normal 0.00-0.50 [facility] Comment on above: Performed By: #### L [id number] #### [facility] ([facility]) [address] [place] [address] Eosinophils/100 WBC (Bld) 2.4 % Normal 0.0-6.0 [facility] Comment on above: Performed By: #### L [id number] #### [facility] ([facility]) [address] [place] [address] Erythrocyte distribution width (RBC) [Ratio] 15.5 % High 11.5-15.0 [facility] Comment on above: Performed By: #### L [id number] #### [facility] ([facility]) [address] [place] [address] ERYTHROCYTE MEAN CORPUSCULAR HEMOGLOBIN CONCENTRATION (G/DL) BY AUTOMATED 32.0 g/dL Normal 32.0-35.0 [facility] Comment on above: Performed By: #### L [id number] #### [facility] ([facility]) [address] [place] [address] Hematocrit (Bld) [Volume fraction] 29.7 % Low 39.0-55.0 [facility] Comment on above: Performed By: #### L [id number] #### [facility] ([facility]) [address] [place] [address] Hemoglobin (Bld) [Mass/Vol] 9.5 g/dL Low 13.0-17.0 [facility] Comment on above: Performed By: #### L [id number] #### [facility] ([facility]) [address] [place] [address] Immature granulocytes (Bld) [#/Vol] 0.07 10*3/uL Normal 0.00-0.20 [facility] Comment on above: Performed By: #### L [id number] #### [facility] ([facility]) [address] [place] [address] Immature granulocytes/100 WBC (Bld) 0.6 % Normal 0.0-1.0 [facility] Comment on above: Performed By: #### L [id number] #### [facility] ([facility]) [address] [place] [address] Lymphocytes (Bld) [#/Vol] 2.26 10*3/uL Normal 1.20-4.00 [facility] Comment on above: Performed By: #### L [id number] #### [facility] ([facility]) [address] [place] [address] Lymphocytes/100 WBC (Bld) 18.1 % Low 20.0-45.0 [facility] Comment on above: Performed By: #### L [id number] #### [facility] ([facility]) [address] [place] [address] MCH (RBC) [Entitic mass] 28.5 pg Normal 27.0-33.0 [facility] Comment on above: Performed By: #### L [id number] #### [facility] ([facility]) [address] [place] [address] MCV (RBC) [Entitic vol] 89.2 fL Normal 82.0-98.0 [facility] Comment on above: Performed By: #### L [id number] #### [facility] ([facility]) [address] [place] [address] Monocytes (Bld) [#/Vol] 1.40 10*3/uL High 0.10-1.00 [facility] Comment on above: Performed By: #### L [id number] #### [facility] ([facility]) [address] [place] [address] Monocytes/100 WBC (Bld) 11.2 % Normal 5.0-12.0 [facility] Comment on above: Performed By: #### L [id number] #### [facility] ([facility]) [address] [place] [address] Neutrophils (Bld) [#/Vol] 8.32 10*3/uL High 1.60-7.60 [facility] Comment on above: Performed By: #### L [id number] #### [facility] ([facility]) [address] [place] [address] Neutrophils/100 WBC (Bld) 66.5 % Normal 40.0-72.0 [facility] Comment on above: Performed By: #### L [id number] #### [facility] ([facility]) [address] [place] [address] NRBC (PER 100 WBCS) BY AUTOMATED COUNT 0.0 % Normal 0 [facility] Comment on above: Performed By: #### L [id number] #### [facility] ([facility]) [address] [place] [address] PLATELETS (10*3/UL) IN BLOOD AUTOMATED COUNT 885 10*3/uL High 150-400 [facility] Comment on above: Performed By: #### L [id number] #### [facility] ([facility]) [address] [place] [address] RBC (Bld) [#/Vol] 3.33 10*6/uL Low 4.20-5.70 [facility] Comment on above: Performed By: #### L [id number] #### [facility] ([facility]) [address] [place] [address] WBC (Bld) [#/Vol] 12.50 10*3/uL High 4.00-10.60 [facility] Comment on above: Performed By: #### L [id number] #### [facility] ([facility]) [address] [place] [address] HEPATITIS B SURFACE ANTIBODY QUANTon 08-26-2023 HEPATITIS B VIRUS SURFACE AB (MIU/ML) IN SERUM 0.01 mIU/mL Normal [facility] Comment on above: Result Comment: INTE RPRETATION: NONREACTIVE<8.00 mIU/mL INDETERMINATE8.00 - 12.00 mIU/mL REACTIVE>12 mIU/mL Performed By: #### L [id number] #### [facility] ([facility]) [address] [address] HEPATITIS B SURFACE ANTIGENo n 08-26-2023 HEPATITIS B VIRUS SURFACE AG PRESENCE IN SERUM Non-Reactive Normal Nonreactive [facility] Comment on above: Performed By: #### L [id number] #### [facility] ([facility]) [address] [place] [address] MAGNESIUMon 08-26-2023 Magnesium [Mass/Vol] 2.2 mg/dL Normal 1.9-2.7 [facility] Comment on above: Performed By: #### L [id number] #### [facility] ([facility]) [address] [place] [address] CBC WITH AUTO DIFFERENTIALon 08-25-2023 Erythrocyte distribution width (RBC) [Ratio] 15.7 % High 11.5-15.0 [facility] Comment on above: Performed By: #### L [id number] #### [facility] ([facility]) [address] [place] [address] ERYTHROCYTE MEAN CORPUSCULAR HEMOGLOBIN CONCENTRATION (G/DL) BY AUTOMATED 33.1 g/dL Normal 32.0-35.0 [facility] Comment on above: Performed By: #### L [id number] #### [facility] ([facility]) [address] [place] [address] Hematocrit (Bld) [Volume fraction] 28.7 % Low 39.0-55.0 [facility] Comment on above: Performed By: #### L [id number] #### [facility] ([facility]) [address] [place] [address] Hemoglobin (Bld) [Mass/Vol] 9.5 g/dL Low 13.0-17.0 [facility] Comment on above: Performed By: #### L [id number] #### [facility] ([facility]) [address] [address] MCH (RBC) [Entitic mass] 29.7 pg Normal 27.0-33.0 [facility] Comment on above: Performed By: #### L [id number] #### [facility] ([facility]) [address] [place] [address] MCV (RBC) [Entitic vol] 89.7 fL Normal 82.0-98.0 [facility] Comment on above: Performed By: #### L [id number] #### [facility] ([facility]) [address] [place] [address] NRBC (PER 100 WBCS) BY AUTOMATED COUNT 0.0 % Normal 0 [facility] Comment on above: Performed By: #### L [id number] #### [facility] ([facility]) [address] [place] [address] PLATELETS (10*3/UL) IN BLOOD AUTOMATED COUNT 911 10*3/uL High 150-400 [facility] Comment on above: Performed By: #### L [id number] #### [facility] ([facility]) [address] [place] [address] RBC (Bld) [#/Vol] 3.20 10*6/uL Low 4.20-5.70 [facility] Comment on above: Performed By: #### L [id number] #### [facility] ([facility]) [address] [place] [address] WBC (Bld) [#/Vol] 19.13 10*3/uL High 4.00-10.60 [facility] Comment on above: Performed By: #### L [id number] #### [facility] ([facility]) [address] [place] [address] COMPREHENSIVE METABOLIC PANE Neil 08-25-2023 Albumin [Mass/Vol] 2.5 g/dL Low 3.5-5.7 [facility] Comment on above: Performed By: #### L [id number] #### [facility] ([facility]) [address] [place] [address] ALP [Catalytic activity/Vol] 91 U/L Normal 34-104 [facility] Comment on above: Performed By: #### L [id number] #### [facility] ([facility]) [address] [place] [address] ALT [Catalytic activity/Vol] 8 U/L Normal 7-52 [facility] Comment on above: Performed By: #### L [id number] #### [facility] ([facility]) [address] [place] [address] Anion gap [Moles/Vol] 12 mmol/L Normal 7-20 [facility] Comment on above: Performed By: #### L [id number] #### [facility] ([facility]) [address] [place] [address] AST [Catalytic activity/Vol] 14 U/L Normal 13-39 [facility] Comment on above: Performed By: #### L [id number] #### [facility] ([facility]) [address] [place] [address] Bilirubin [Mass/Vol] 0.4 mg/dL Normal 0.3-1.0 [facility] Comment on above: Performed By: #### L [id number] #### [facility] ([facility]) [address] [place] [address] Calcium [Mass/Vol] 8.2 mg/dL Low 8.6-10.3 [facility] Comment on above: Performed By: #### L [id number] #### [facility] ([facility]) [address] [place] [address] Chloride [Moles/Vol] 97 mmol/L Low 98-107 [facility] Comment on above: Performed By: #### L [id number] #### [facility] ([facility]) [address] [place] [address] CO2 [Moles/Vol] 28 mmol/L Normal 21-31 [facility] Comment on above: Performed By: #### L [id number] #### [facility] ([facility]) [address] [place] [address] Creatinine [Mass/Vol] 2.95 mg/dL High 0.70-1.30 [facility] Comment on above: Performed By: #### L [id number] #### [facility] ([facility]) [address] [place] [address] GLOMERULAR FILTRATION RATE ML/MIN/1.73 SQ M.PREDICTED 22.0 mL/min/1.73m*2 Low >60.0 [facility] Comment on above: Result Comment: The [facility]???s estimated glomerular filtration rate (eGFR) will no longer include consideration of race in its calculation. The National Kidney Foundation???s eGFR Task Force developed new recommendations for the estimation of the glomerular filtration rate in the [place] They recommend immediate implementation of the new equation refit without the race variable in all laboratories because the calculation does not include race. In addition to not including race in the calculation and reporting, it included diversity in its development, and has acceptable performance characteristics and potential consequences that do not disproportionately affect any one group of individuals. Performed By: #### L [id number] #### [facility] ([facility]) [address] [place] [address] Glucose [Mass/Vol] 139 mg/dL High 70-100 [facility] Comment on above: Performed By: #### L [id number] #### [facility] ([facility]) [address] [place] [address] Potassium [Moles/Vol] 3.6 mmol/L Normal 3.5-5.1 [facility] Comment on above: Performed By: #### L [id number] #### [facility] ([facility]) [address] [place] [address] Protein [Mass/Vol] 6.7 g/dL Normal 6.0-8.3 [facility] Comment on above: Performed By: #### L [id number] #### [facility] ([facility]) [address] [place] [address] Sodium [Moles/Vol] 133 mmol/L Low 136-145 [facility] Comment on above: Performed By: #### L [id number] #### [facility] ([facility]) [address] [place] [address] Urea nitrogen [Mass/Vol] 52 mg/dL High 7-25 [facility] Comment on above: Performed By: #### L [id number] #### [facility] ([facility]) [address] [place] [address] UREA NITROGEN/CREATININE (MASS RATIO) IN SER/PLAS 17.6 Normal [facility] Comment on above: Performed By: #### L [id number] #### [facility] ([facility]) [address] [place] [address] MAGNESIUMon 08-25-2023 Magnesium [Mass/Vol] 2.4 mg/dL Normal 1.9-2.7 [facility] Comment on above: Performed By: #### L [id number] #### [facility] ([facility]) [address] [place] [address] MANUAL DIFFERENTIALon 2023 BASOPHILS (10*3/UL) IN BLOOD BY CALCULATION 0.17 10*3/uL Normal 0.00-0.20 [facility] Comment on above: Performed By: #### L [id number] #### [facility] ([facility]) [address] [place] [address] BASOPHILS/100 LEUKOCYTES IN BLOOD BY AUTOMATED COUNT 0.9 % Normal 0.0-1.0 [facility] Comment on above: Performed By: #### L [id number] #### [facility] ([facility]) [address] [place] [address] EOSINOPHILS (10*3/UL) IN BLOOD BY CALCULATION 0.15 10*3/uL Normal 0.00-0.50 [facility] Comment on above: Performed By: #### L [id number] #### [facility] ([facility]) [address] [place] [address] EOSINOPHILS/100 LEUKOCYTES IN BLOOD BY AUTOMATED COUNT 0.8 % Normal 0.0-6.0 [facility] Comment on above: Performed By: #### L [id number] #### [facility] ([facility]) [address] [facility] [place] [address] IMMATURE GRANULOCYTES (10*3/UL) IN BLOOD BY CALCULATION 0.15 10*3/uL Normal 0.00-0.20 [facility] Comment on above: Performed By: #### L [id number] #### [facility] ([facility]) [address] [place] [address] IMMATURE GRANULOCYTES/100 LEUKOCYTES IN BLOOD BY AUTOMATED COUNT 0.8 % Normal 0.0-1.0 [facility] Comment on above: Performed By: #### L [id number] #### [facility] ([facility]) [address] [place] [address] LYMPHOCYTES (10*3/UL) IN BLOOD BY CALCULATION 1.99 10*3/uL Normal 1.20-4.00 [facility] Comment on above: Performed By: #### L [id number] #### [facility] ([facility]) [address] [place] [address] LYMPHOCYTES/100 LEUKOCYTES IN BLOOD BY AUTOMATED COUNT 10.4 % Low 20.0-45.0 [facility] Comment on above: Performed By: #### L [id number] #### [facility] ([facility]) [address] [place] [address] MONOCYTES (10*3/UL) IN BLOOD BY CALCUATION 2.03 10*3/uL High 0.10-1.00 [facility] Comment on above: Performed By: #### L [id number] #### [facility] ([facility]) [address] [place] [address] MONOCYTES/100 LEUKOCYTES IN BLOOD BY AUTOMATED COUNT 10.6 % Normal 5.0-12.0 [facility] Comment on above: Performed By: #### L [id number] #### [facility] ([facility]) [address] [place] [address] NEUTROPHILS (10*3/UL) IN BLOOD BY CALCULATION 14.6 10*3/uL High 1.6-7.6 [facility] Comment on above: Performed By: #### L [id number] #### [facility] ([facility]) [address] [place] [address] NEUTROPHILS/100 LEUKOCYTES IN BLOOD BY AUTOMATED COUNT 76.5 % High 40.0-72.0 [facility] Comment on above: Performed By: #### L [id number] #### [facility] ([facility]) [address] [place] [address] PHOSPHORUSon 08-25-2023 Magnesium [Mass/Vol] 3.1 mg/dL Normal 2.5-5.0 [facility] Comment on above: Performed By: #### L [id number] #### [facility] ([facility]) [address] [place] [address] PREALBUMINon 08-25-2023 Prealbumin [Mass/Vol] 11.9 mg/dL Normal [facility] Comment on above: Performed By: #### L [id number] #### [facility] ([facility]) [address] [place] [address] CBC WITH AUTO DIFFERENTIALon 08-24-2023 Erythrocyte distribution width (RBC) [Ratio] 15.7 % High 11.5-15.0 [facility] Comment on above: Performed By: #### L [id number] #### [facility] ([facility]) [address] [place] [address] ERYTHROCYTE MEAN CORPUSCULAR HEMOGLOBIN CONCENTRATION (G/DL) BY AUTOMATED 32.8 g/dL Normal 32.0-35.0 [facility] Comment on above: Performed By: #### L [id number] #### [facility] ([facility]) [address] [place] [address] Hematocrit (Bld) [Volume fraction] 29.3 % Low 39.0-55.0 [facility] Comment on above: Performed By: #### L [id number] #### [facility] ([facility]) [address] [place] [address] Hemoglobin (Bld) [Mass/Vol] 9.6 g/dL Low 13.0-17.0 [facility] Comment on above: Performed By: #### L [id number] #### [facility] ([facility]) [address] [place] [address] MCH (RBC) [Entitic mass] 29.3 pg Normal 27.0-33.0 [facility] Comment on above: Performed By: #### L [id number] #### [facility] ([facility]) [address] [place] [address] MCV (RBC) [Entitic vol] 89.3 fL Normal 82.0-98.0 [facility] Comment on above: Performed By: #### L [id number] #### [facility] ([facility]) [address] [place] [address] NRBC (PER 100 WBCS) BY AUTOMATED COUNT 0.0 % Normal 0 [facility] Comment on above: Performed By: #### L [id number] #### [facility] ([facility]) [address] [place] [address] PLATELETS (10*3/UL) IN BLOOD AUTOMATED COUNT 909 10*3/uL High 150-400 [facility] Comment on above: Performed By: #### L [id number] #### [facility] ([facility]) [address] [place] [address] RBC (Bld) [#/Vol] 3.28 10*6/uL Low 4.20-5.70 [facility] Comment on above: Performed By: #### L [id number] #### [facility] ([facility]) [address] [place] [address] WBC (Bld) [#/Vol] 13.48 10*3/uL High 4.00-10.60 [facility] Comment on above: Performed By: #### L [id number] #### [facility] [address] [place] [address] COMPREHENSIVE METABOLIC PANE Neil 08-24-2023 Albumin [Mass/Vol] 2.6 g/dL Low 3.5-5.7 [facility] Comment on above: Performed By: #### L [id number] #### [facility] ([facility]) [address] [place] [address] ALP [Catalytic activity/Vol] 100 U/L Normal 34-104 [facility] Comment on above: Performed By: #### L [id number] #### [facility] ([facility]) [address] [place] [address] ALT [Catalytic activity/Vol] 10 U/L Normal 7-52 [facility] Comment on above: Performed By: #### L [id number] #### [facility] [address] [place] [address] Anion gap [Moles/Vol] 11 mmol/L Normal 7-20 [facility] Comment on above: Performed By: #### L [id number] #### [facility] ([facility]) [address] [place] [address] AST [Catalytic activity/Vol] 15 U/L Normal 13-39 [facility] Comment on above: Performed By: #### L [id number] #### [facility] ([facility]) [address] [place] [address] Bilirubin [Mass/Vol] 0.3 mg/dL Normal 0.3-1.0 [facility] Comment on above: Performed By: #### L [id number] #### [facility] ([facility]) [address] [place] [address] Calcium [Mass/Vol] 8.7 mg/dL Normal 8.6-10.3 [facility] Comment on above: Performed By: #### L [id number] #### [facility] ([facility]) [address] [place] [address] Chloride [Moles/Vol] 96 mmol/L Low 98-107 [facility] Comment on above: Performed By: #### L [id number] #### [facility] ([facility]) [address] [place] [address] CO2 [Moles/Vol] 29 mmol/L Normal 21-31 [facility] Comment on above: Performed By: #### L [id number] #### [facility] ([facility]) [address] [place] [address] Creatinine [Mass/Vol] 2.47 mg/dL High 0.70-1.30 [facility] Comment on above: Performed By: #### L [id number] #### [facility] ([facility]) [address] [place] [address] GLOMERULAR FILTRATION RATE ML/MIN/1.73 SQ M.PREDICTED 27.2 mL/min/1.73m*2 Low >60.0 [facility] Comment on above: Result Comment: The [facility]???s estimated glomerular filtration rate (eGFR) will no longer include consideration of race in its calculation. The National Kidney Foundation???s eGFR Task Force developed new recommendations for the estimation of the glomerular filtration rate in the [place] They recommend immediate implementation of the new equation refit without the race variable in all laboratories because the calculation does not include race. In addition to not including race in the calculation and reporting, it included diversity in its development, and has acceptable performance characteristics and potential consequences that do not disproportionately affect any one group of individuals. Performed By: #### L [id number] #### [facility] ([facility]) [address] [place] [address] Glucose [Mass/Vol] 133 mg/dL High 70-100 [facility] Comment on above: Performed By: #### L [id number] #### [facility] ([facility]) [address] [place] [address] Potassium [Moles/Vol] 3.5 mmol/L Normal 3.5-5.1 [facility] Comment on above: Performed By: #### L AB15 #### [facility] ([facility]) [address] [place] [address] Protein [Mass/Vol] 6.5 g/dL Normal 6.0-8.3 [facility] Comment on above: Performed By: #### L AB15 #### [facility] ([facility]) [address] [place] [address] Sodium [Moles/Vol] 132 mmol/L Low 136-145 [facility] Comment on above: Performed By: #### L AB15 #### [facility] ([facility]) [address] [place] [address] Urea nitrogen [Mass/Vol] 38 mg/dL High 7-25 [facility] Comment on above: Performed By: #### L [id number] #### [facility] ([facility]) [address] [place] [address] UREA NITROGEN/CREATININE (MASS RATIO) IN SER/PLAS 15.4 Normal [facility] Comment on above: Performed By: #### L [id number] #### [facility] ([facility]) [address] [place] [address] MAGNESIUMon 08-24-2023 Magnesium [Mass/Vol] 2.4 mg/dL Normal 1.9-2.7 [facility] Comment on above: Performed By: #### L AB15 #### [facility] ([facility]) [address] [place] [address] MANUAL DIFFERENTIALon 2023 BASOPHILS (10*3/UL) IN BLOOD BY CALCULATION 0.13 10*3/uL Normal 0.00-0.20 [facility] Comment on above: Performed By: #### L [id number] #### [facility] ([facility]) [address] [place] [address] BASOPHILS/100 LEUKOCYTES IN BLOOD BY AUTOMATED COUNT 1.0 % Normal 0.0-1.0 [facility] Comment on above: Performed By: #### L [id number] #### [facility] ([facility]) [address] [place] [address] EOSINOPHILS (10*3/UL) IN BLOOD BY CALCULATION 0.30 10*3/uL Normal 0.00-0.50 [facility] Comment on above: Performed By: #### L [id number] #### [facility] ([facility]) [address] [address] EOSINOPHILS/100 LEUKOCYTES IN BLOOD BY AUTOMATED COUNT 2.2 % Normal 0.0-6.0 [facility] Comment on above: Performed By: #### L [id number] #### [facility] ([facility]) [address] [place] [address] IMMATURE GRANULOCYTES (10*3/UL) IN BLOOD BY CALCULATION 0.08 10*3/uL Normal 0.00-0.20 [facility] Comment on above: Performed By: #### L [id number] #### [facility] ([facility]) [address] [place] [address] IMMATURE GRANULOCYTES/100 LEUKOCYTES IN BLOOD BY AUTOMATED COUNT 0.6 % Normal 0.0-1.0 [facility] Comment on above: Performed By: #### L [id number] #### [facility] ([facility]) [address] [place] [address] LYMPHOCYTES (10*3/UL) IN BLOOD BY CALCULATION 1.83 10*3/uL Normal 1.20-4.00 [facility] Comment on above: Performed By: #### L [id number] #### [facility] ([facility]) [address] [place] [address] LYMPHOCYTES/100 LEUKOCYTES IN BLOOD BY AUTOMATED COUNT 13.6 % Low 20.0-45.0 [facility] Comment on above: Performed By: #### L [id number] #### [facility] ([facility]) [address] [place] [address] MONOCYTES (10*3/UL) IN BLOOD BY CALCUATION 1.77 10*3/uL High 0.10-1.00 [facility] Comment on above: Performed By: #### L [id number] #### [facility] ([facility]) [address] [place] [address] MONOCYTES/100 LEUKOCYTES IN BLOOD BY AUTOMATED COUNT 13.1 % High 5.0-12.0 [facility] Comment on above: Performed By: #### L [id number] #### [facility] ([facility]) [address] [place] [address] NEUTROPHILS (10*3/UL) IN BLOOD BY CALCULATION 9.4 10*3/uL High 1.6-7.6 [facility] Comment on above: Performed By: #### L [id number] #### [facility] ([facility]) [address] [place] [address] NEUTROPHILS/100 LEUKOCYTES IN BLOOD BY AUTOMATED COUNT 69.5 % Normal 40.0-72.0 [facility] Comment on above: Performed By: #### L [id number] #### [facility] ([facility]) [address] [place] [address] PHOSPHORUSon 08-24-2023 Magnesium [Mass/Vol] 3.1 mg/dL Normal 2.5-5.0 [facility] Comment on above: Performed By: #### L AB15 #### [facility] ([facility]) [address] [place] [address] PREALBUMINon 08-24-2023 Prealbumin [Mass/Vol] 12.2 mg/dL Normal [facility] Comment on above: Performed By: #### L AB15 #### [facility] ([facility]) [address] [place] [address] Capillary blood glucose nic urement by glucometer (mass/volume)Ordered By: Arnaldo Thomas on 08-23-2023 Glucose [Mass/Vol] 99 mg/dL Normal [facility] Comment on above: Random Glucose Refer ence Range is dependent on time and content of last meal. Glucose of more than 200 mg/dL in a nonstressed, ambulatory subject supports the diagnosis of Diabetes Mellitus. Result Comment: [facility][note 3] Glucose Reference Range is dependent on time and content of last meal. Glucose of more than 200 mg/dL in a nonstressed, ambulatory subject supports the diagnosis of Diabetes Mellitus. Performed By: #### G VALERY ####Point of Care testing, Glucose Poct Glucometerson 0 08-23-2023 Commemt1 Glu2: Cleaned Meter Normal [facility] Comment on above: Result Comment: PERF ORMED BY:[facility] [place], [place] [phone] MEDICAL DIRECTORJOSEPH GARCIA M.D. Performed By: #### G LULS ####Point of Care testing, Glucose [Mass/Vol] 218 mg/dL Normal [facility] Comment on above: Result Comment: [facility][note 3] Glucose Reference Range is dependent on time and content of last meal. Glucose of more than 200 mg/dL in a nonstressed, ambulatory subject supports the diagnosis of Diabetes Mellitus.PERFORMED BY:[address] [place], [place] [phone] MEDICAL DIRECTORJOSEPH GARCIA M.D. Performed By: #### G LULS ####Point of Care testing, Glucose [Mass/Vol] 189 mg/dL Normal [facility] Comment on above: Result Comment: [facility][note 3] Glucose Reference Range is dependent on time and content of last meal. Glucose of more than 200 mg/dL in a nonstressed, ambulatory subject supports the diagnosis of Diabetes Mellitus.PERFORMED BY:[address] [place], [place] [phone] MEDICAL DIRECTORJOSEPH GARCIA M.D. Performed By: #### G LULS ####Point of Care testing, No Panel InformationOrdered By: Arnaldo Thomas on 08-23-2023 Bedside Glucose Comment Glu2: cleaned meter [facility] Glu2: cleaned meter [facility] Albumin [Mass/volume] in Ser um or Plasma by Bromocresol green (BCG) dye binding methoOrdered By: Sury Winkler on 08-22-2023 Albumin BCG dye [Mass/Vol] 2.5 g/dL 3.5-5.7 [facility] Calcium [Mass/volume] in Ser um or PlasmaOrdered By: Sury Winkler on 08-22-2023 Calcium [Mass/Vol] 8.9 mg/dL Normal 8.6-10.3 [facility] Comment on above: Performed By: #### R ENAL ####[address] [address] [facility] Carbon dioxide, total [Moles /volume] in Serum or PlasmaOrdered By: Sury Winkler on 08-22-2023 CO2 [Moles/Vol] 30.9 mmol/L Normal 21.0-31.0 [facility] Comment on above: Performed By: #### R ENAL ####[address] [place] [address] [facility] Chloride [Moles/volume] in S rene or PlasmaOrdered By: Sury Winkler on 08-22-2023 Chloride [Moles/Vol] 95 mmol/L Low 98-107 [facility] Comment on above: Performed By: #### R ENAL ####[address] [address] [facility] Creatinine [Mass/volume] in Serum or PlasmaOrdered By: Sury Winkler on 08-22-2023 Creatinine [Mass/Vol] 3.00 mg/dL Significan t change up 0.70-1.30 [facility] Comment on above: Delta: 2.13 on 08/20 Performed By: #### R ENAL ####[address] [address] [facility] Creatinine [Mass/volume] in UrineOrdered By: Sury Winkler on 08-22-2023 Creatinine (U) [Mass/Vol] 259.0 mg/dL [facility] Comment on above: No reference range e stablished Creatinine, Urine (Random)on 08-22-2023 Creatinine, Urine (Random) 259.0 mg/dL Normal [facility] Comment on above: Result Comment: No r eference range established Performed By: #### U NA, UCREA ####[address] [address] [facility] Glucose Poct Glucometerson 0 08-22-2023 Glucose [Mass/Vol] 162 mg/dL Normal [facility] Comment on above: Result Comment: [place] Glucose Reference Range is dependent on time and content of last meal. Glucose of more than 200 mg/dL in a nonstressed, ambulatory subject supports the diagnosis of Diabetes Mellitus.PERFORMED BY:[address] [address] [place], [place] [phone] MEDICAL DIRECTORDONATOCOPPER [facility] SUN M.D. Performed By: #### G LULS ####Point of Care testing, Glucose [Mass/Vol] 141 mg/dL Normal [facility] Comment on above: Result Comment: [facility][note 3] Glucose Reference Range is dependent on time and content of last meal. Glucose of more than 200 mg/dL in a nonstressed, ambulatory subject supports the diagnosis of Diabetes Mellitus.PERFORMED BY:[address] [place], [place] [phone] MEDICAL DIRECTORJOSEPH GARCIA M.D. Performed By: #### G LULS ####Point of Care testing, Glucose [Mass/Vol] 182 mg/dL Normal [facility] Comment on above: Result Comment: [facility][note 3] Glucose Reference Range is dependent on time and content of last meal. Glucose of more than 200 mg/dL in a nonstressed, ambulatory subject supports the diagnosis of Diabetes Mellitus.PERFORMED BY:[address] [place], [place] [phone] MEDICAL DIRECTORJOSEPH GARCIA M.D. Performed By: #### G LULS ####Point of Care testing, Glucose [Mass/Vol] 192 mg/dL Normal [facility] Comment on above: Result Comment: [facility][note 3] Glucose Reference Range is dependent on time and content of last meal. Glucose of more than 200 mg/dL in a nonstressed, ambulatory subject supports the diagnosis of Diabetes Mellitus.PERFORMED BY:[address] [place], [place] [phone] MEDICAL SILVIA GARCIA M.D. Performed By: #### G LULS ####Point of Care testing, Glucose [Mass/volume] in Ser um or PlasmaOrdered By: Sury Winkler on 08-22-2023 Glucose [Mass/Vol] 161 mg/dL High 70-100 [facility] Comment on above: ADA recommended refe rence rangeRandom Glucose Reference Range is dependent on time and content of last meal. Glucose of more than 200 mg/dL in a nonstressed, ambulatory subject supports the diagnosis of Diabetes Mellitus. Result Comment: [facility][note 3] Glucose Reference Range is dependent on time and content of last meal. Glucose of more than 200 mg/dL in a nonstressed, ambulatory subject supports the diagnosis of Diabetes Mellitus. ADA recommended reference range Performed By: #### R ENAL ####[address] [place] [address] [facility] No Panel InformationOrdered By: Coltbernarda Winkler on 08-22-2023 Estimated GFR (CKD-EPI) 21.531 mL/Min [facility] Creatinine Clearance (Chem 24.07 [facility] 21.531 mL/Min [facility] 24. [facility] Phosphate [Mass/volume] in S rene or PlasmaOrdered By: Sury Peterson on 08-22-2023 Phosphate [Mass/Vol] 4.9 mg/dL High 2.5-4.5 [facility] Comment on above: Performed By: #### R ENAL ####[id number] [facility] Potassium [Moles/volume] in Serum or PlasmaOrdered By: Sury Haddadtalita on 08-22-2023 Potassium [Moles/Vol] 4.8 mmol/L Normal 3.5-5.1 [facility] Comment on above: Performed By: #### R ENAL ####[address] [address] [facility] Renal Function Panelon 08-21 Albumin [Mass/Vol] 2.5 g/dL Low 3.5-5.7 [facility] Comment on above: Performed By: #### R ENAL ####[id number] [facility] Creatinine Clr Calc Pharmacy 24. Normal [facility] Comment on above: Result Comment: PERF ORMED BY:[address] [place], [place] [phone] MEDICAL SILVIA GARCIA M.D. Performed By: #### R ENAL ####[address] [address] [facility] GFR/1.73 sq M.predicted MDRD (S/P/Bld) [Vol rate/Area] 21.531 mL/min/{1.73_m2} Normal [facility] Comment on above: Performed By: #### R ENAL ####[address] [place] [address] [facility] Serum or plasma anion gap de terminationOrdered By: Sury Winkler on 08-22-2023 Anion gap [Moles/Vol] 11.9 mmol/L Normal 6.0-15.0 [facility] Comment on above: Performed By: #### R ENAL ####[address] [address] [facility] Sodium [Moles/volume] in Ser um or PlasmaOrdered By: Sury Winkler on 08-22-2023 Sodium [Moles/Vol] 133 mmol/L Low 136-145 [facility] Comment on above: Performed By: #### R ENAL ####[id number] [facility] Sodium [Moles/volume] in Uri neOrdered By: Sury Winkler on 08-22-2023 Sodium (U) [Moles/Vol] 33 mmol/L Normal [facility] Comment on above: No reference range e stablished Result Comment: No r eference range establishedPERFORMED BY:[address] [place], [place] [phone] MEDICAL DIRECTORJOSEPH GARCIA M.D. Performed By: #### U NA, UCREA ####[address] [address] [facility] Urea nitrogen [Mass/volume] in Serum or PlasmaOrdered By: Sury Winkler on 08-22-2023 Urea nitrogen [Mass/Vol] 55 mg/dL High 7-25 [facility] Comment on above: Performed By: #### R ENAL ####[address] [place] [address] [facility] Automated basophil %Ordered By: Geo Thomas on 08-21-2023 Basophils/100 WBC (Bld) 0.9 % Normal . [facility] Comment on above: Order Comment: DRAW LAST PER RN EMMANUEL Performed By: #### F ER, CBC, BMP, FE and TIBC ####[id number] [facility] Automated basophil countOrde red By: Geo Thomas on 08-21-2023 Basophils (Bld) [#/Vol] 0.1 10*3/uL Normal 0.0-0.2 [facility] Comment on above: Order Comment: DRAW LAST PER RN EMMANUEL Result Comment: PERF ORMED BY:[address] [place], [place] [phone] MEDICAL DIRECTORJOSEPH GARCIA M.D. Performed By: #### F ER, CBC, BMP, FE and TIBC ####[address] Automated eosinophil %Ordere d By: Geo Thomas on 08-21-2023 Eosinophils/100 WBC (Bld) 0.8 % Normal . [facility] Comment on above: Order Comment: DRAW LAST PER RN EMMANUEL Performed By: #### F ER, CBC, BMP, FE and TIBC ####[id number] [facility] Automated eosinophil countOr dered By: Geo Thomas on 08-21-2023 Eosinophils (Bld) [#/Vol] 0.1 10*3/uL Normal 0.0-0.45 [facility] Comment on above: Order Comment: DRAW LAST PER RN EMMANUEL Performed By: #### F ER, CBC, BMP, FE and TIBC ####[address] Automated erythrocytes count in urine sediment (number/area)Ordered By: Sury Winkler on 08-21-2023 RBC Auto (Urine sed) [#/Area] 3-4 [HPF] 0-4 [facility] Automated leukocytes count i n urine sediment (number/area)Ordered By: Sury Winkler on 08-21-2023 WBC Auto (Urine sed) [#/Area] 50-100 [HPF] 0-4 [facility] Automated monocyte %Ordered By: Geo Thomas on 08-21-2023 Monocytes/100 WBC (Bld) 16.8 % Normal . [facility] Comment on above: Order Comment: DRAW LAST PER RN EMMANUEL Performed By: #### F ER, CBC, BMP, FE and TIBC ####[address] Automated neutrophil %Ordere d By: Geo Thomas on 08-21-2023 Neutrophils/100 WBC (Bld) 70.0 % Normal . [facility] Comment on above: Order Comment: DRAW LAST PER RN EMMANUEL Performed By: #### F ER, CBC, BMP, FE and TIBC ####[address] Automated urine color determ inationOrdered By: Sury Winkler on 08-21-2023 Color (U) Dark yellow Critically abnormal Yellow [facility] Comment on above: Order Comment: Name Collection Type:: Santana Catheter Performed By: #### C UU, ADDONUAPLUS ####[address] Automated urine hyaline cast s count (number/volume)Ordered By: Sury Winkler on 08-21-2023 Hyaline casts Auto (U) [#/Vol] 50-100 [LPF] 0-1 [facility] Bacteria identified Cx Nom ( U)Ordered By: Sury Winkler on 08-21-2023 Urine culture routine Klebsiella pneumon iae (CRE) [facility] Basic Metabolic Panelon 07-25 Anion gap [Moles/Vol] 10.4 mmol/L Normal 6.0-15.0 [facility] Comment on above: Order Comment: DRAW LAST PER RN EMMANUEL Performed By: #### F ER, CBC, BMP, FE and TIBC ####[address] Calcium [Mass/Vol] 8.3 mg/dL Low 8.6-10.3 [facility] Comment on above: Order Comment: DRAW LAST PER RN EMMANUEL Performed By: #### F ER, CBC, BMP, FE and TIBC ####[address] Chloride [Moles/Vol] 96 mmol/L Low 98-107 [facility] Comment on above: Order Comment: DRAW LAST PER RN EMMANUEL Performed By: #### F ER, CBC, BMP, FE and TIBC ####[address] CO2 [Moles/Vol] 30.4 mmol/L Normal 21.0-31.0 [facility] Comment on above: Order Comment: DRAW LAST PER RN EMMANUEL Performed By: #### F ER, CBC, BMP, FE and TIBC ####[address] Creatinine [Mass/Vol] 2.13 mg/dL High 0.70-1.30 [facility] Comment on above: Order Comment: DRAW LAST PER RN EMMANUEL Performed By: #### F ER, CBC, BMP, FE and TIBC ####[id number] [facility] Creatinine Clr Calc Pharmacy 33.69 Normal [facility] Comment on above: Order Comment: DRAW LAST PER RN EMMANUEL Performed By: #### F ER, CBC, BMP, FE and TIBC ####[id number] [facility] GFR/1.73 sq M.predicted MDRD (S/P/Bld) [Vol rate/Area] 32.475 mL/min/{1.73_m2} Normal [facility] Comment on above: Order Comment: DRAW LAST PER RN EMMANUEL Performed By: #### F ER, CBC, BMP, FE and TIBC ####[id number] [facility] Glucose [Mass/Vol] 167 mg/dL High 70-100 [facility] Comment on above: Order Comment: DRAW LAST PER RN EMMANUEL Result Comment: [place] Glucose Reference Range is dependent on time and content of last meal. Glucose of more than 200 mg/dL in a nonstressed, ambulatory subject supports the diagnosis of Diabetes Mellitus. ADA recommended reference range Performed By: #### F ER, CBC, BMP, FE and TIBC ####[facility] Potassium [Moles/Vol] 4.8 mmol/L Normal 3.5-5.1 [facility] Comment on above: Order Comment: DRAW LAST PER RN EMMANUEL Performed By: #### F ER, CBC, BMP, FE and TIBC ####[address] Sodium [Moles/Vol] 132 mmol/L Low 136-145 [facility] Comment on above: Order Comment: DRAW LAST PER RN EMMANUEL Performed By: #### F ER, CBC, BMP, FE and TIBC ####[address] [place] Urea nitrogen [Mass/Vol] 36 mg/dL Significant change up 7-25 [facility] Comment on above: Order Comment: DRAW LAST PER RN EMMANUEL Performed By: #### F ER, CBC, BMP, FE and TIBC ####[address] Bilirubin Test strip Ql (U)O rdered By: Sury Winkler on 08-21-2023 Bilirubin Ql (U) 3+ Negative [facility] Casts typing in urine sedime nt by light microscopyOrdered By: Sury Winkler on 08-21-2023 Casts LM Nom (Urine sed) None seen [LPF] None Seen [facility] Coarse granular casts count in urine sediment by microscopy low power field (number/aOrdered By: Sury Winkler on 08-21-2023 Coarse Granular Casts LM.LPF (Urine sed) [#/Area] 1-2 [LPF] 0-1 [facility] Complete Blood Count Auto Di ffon 08-21-2023 Mean Corpuscular HGB Conc 33.2 g/dL Normal 32.5-35.6 [facility] Comment on above: Order Comment: DRAW LAST PER RN EMMANUEL Performed By: #### F ER, CBC, BMP, FE and TIBC ####[id number] [facility] Monocytes # (Auto) Normal 0.0-0.8 [facility] Comment on above: Order Comment: DRAW LAST PER RN EMMANUEL Result Comment: Abso lute monocytosis is commonly reactive in nature. However, if unexplained, recommend follow-up CBC in 3 months to evaluate for persistence. Performed By: #### F ER, CBC, BMP, FE and TIBC ####[address] NRBC% 0.0 /100{WBC} Normal 0-0.5 [facility] Comment on above: Order Comment: DRAW LAST PER RN EMMANUEL Performed By: #### F ER, CBC, BMP, FE and TIBC ####[address] [address] [facility] Dipstick and Microscopicon 0 08-21-2023 Appearance (U) Turbid Critically abnormal Clear [facility] Comment on above: Order Comment: Name Collection Type:: Santana Catheter Performed By: #### C UU, ADDONUAPLUS ####[address] [address] [facility] Bacteria,Urine 4+ High None Seen [facility] Comment on above: Order Comment: Name Collection Type:: Santana Catheter Performed By: #### C UU, ADDONUAPLUS ####[address] [address] [facility] Bilirubin,Urine 3+ High Negative [facility] Comment on above: Order Comment: Name Collection Type:: Santana Catheter Performed By: #### C UU, ADDONUAPLUS ####[address] [address] [facility] Coarse Granular Casts,Urine 1-2 High 0-1 [facility] Comment on above: Order Comment: Name Collection Type:: Santana Catheter Performed By: #### C UU, ADDONUAPLUS ####[address] [address] [facility] Glucose Ql (U) Normal Normal Normal [facility] Comment on above: Order Comment: Name Collection Type:: Santana Catheter Performed By: #### C UU, ADDONUAPLUS ####[address] [address] [facility] Hyaline Casts,Urine 50-100 High 0-1 [facility] Comment on above: Order Comment: Name Collection Type:: Santana Catheter Performed By: #### C UU, ADDONUAPLUS ####[address] [address] [facility] Ketones Ql (U) Trace High Negative [facility] Comment on above: Order Comment: Name Collection Type:: Santana Catheter Performed By: #### C UU, ADDONUAPLUS ####[address] [address] [facility] Leukocyte esterase Test strip Ql (U) 3+ High Negative [facility] Comment on above: Order Comment: Name Collection Type:: Santana Catheter Performed By: #### C UU, ADDONUAPLUS ####[address] [address] [facility] Nitrite,Urine Positive High Negative [facility] Comment on above: Order Comment: Name Collection Type:: Santana Catheter Performed By: #### C UU, ADDONUAPLUS ####[address] [address] [facility] Occult Blood,Urine 2+ High Negative [facility] Comment on above: Order Comment: Name Collection Type:: Santana Catheter Result Comment: PERF ORMED BY:[address] [place], [place] [phone] MEDICAL SILVIA GARCIA M.D. Performed By: #### C UU, ADDONUAPLUS ####[address] [address] [facility] Other Casts,Urine None Seen Normal None Seen [facility] Comment on above: Order Comment: Name Collection Type:: Santana Catheter Performed By: #### C UU, ADDONUAPLUS ####[address] [place] [address] [facility] RBC,Urine 3-4 Normal 0-4 [facility] Comment on above: Order Comment: Name Collection Type:: Santana Catheter Performed By: #### C UU, ADDONUAPLUS ####[address] [address] [facility] Specificy [place],Urine 1.026 Normal 1.001-1.030 [facility] Comment on above: Order Comment: Name Collection Type:: Santana Catheter Performed By: #### C UU, ADDONUAPLUS ####[address] [address] [facility] Squamous Epithelial Cell,Urine None Seen Normal 0-2 [facility] Comment on above: Order Comment: Name Collection Type:: Santana Catheter Performed By: #### C UU, ADDONUAPLUS ####[address] [address] [facility] Urobilinogen,Urine Normal Normal Normal [facility] Comment on above: Order Comment: Name Collection Type:: Santana Catheter Performed By: #### C UU, ADDONUAPLUS ####[address] [address] [facility] Waxy Casts,Urine 1-2 High None Seen [facility] Comment on above: Order Comment: Name Collection Type:: Santana Catheter Performed By: #### C UU, ADDONUAPLUS ####[address] [address] [facility] WBC,Urine 50-100 High 0-4 [facility] Comment on above: Order Comment: Name Collection Type:: Santana Catheter Performed By: #### C UU, ADDONUAPLUS ####[address] [address] [facility] Yeast,Urine None Seen Normal None Seen [facility] Comment on above: Order Comment: Name Collection Type:: Santana Catheter Result Comment: PERF ORMED BY:[address] [address] [address] [place]UÑ[place]DA[place], [place] [phone] MEDICAL DIRECTORJOSEPH GARCIA M.D. Performed By: #### C FAUSTINO JACOBRICHARDUAPLUS ####[address] [address] [facility] Erythrocyte distribution wid th [Ratio] by Automated countOrdered By: Geo Thomas on 08-21-2023 Erythrocyte distribution width (RBC) [Ratio] 17.3 % High 12.0-14.8 [facility] Comment on above: Order Comment: DRAW LAST PER RN EMMANUEL Performed By: #### F ER, CBC, BMP, FE and TIBC ####[id number] [facility] Erythrocytes [#/volume] in B lood by Automated countOrdered By: Geo Thomas on 08-21-2023 RBC (Bld) [#/Vol] 3.17 10*6/uL Low 3.90-5.60 [facility] Comment on above: Order Comment: DRAW LAST PER RN EMMANUEL Performed By: #### F ER, CBC, BMP, FE and TIBC ####[id number] [facility] Ferritin [Mass/volume] in Se rum or PlasmaOrdered By: Mehul Garrett on 08-21-2023 Ferritin [Mass/Vol] 938.1 ng/mL High 23.9-336.2 [facility] Comment on above: Order Comment: DRAW LAST PER RN EMMANUEL Result Comment: PERF ORMED BY:[address] [address] [address] NUÑE[place]DA[place], [place] [phone] MEDICAL DIRECTORJOSEPH GARCIA M.D. Performed By: #### F ER, CBC, BMP, FE and TIBC ####[address] [address] [facility] Glucose Poct Glucometerson 0 08-21-2023 Glucose [Mass/Vol] 172 mg/dL Normal [facility] Comment on above: Result Comment: [place] om Glucose Reference Range is dependent on time and content of last meal. Glucose of more than 200 mg/dL in a nonstressed, ambulatory subject supports the diagnosis of Diabetes Mellitus.PERFORMED BY:[address] [address] [address] [place], [place] [phone] MEDICAL DIRECTORJOSEPH GARCIA M.D. Performed By: #### G LULS ####Point of Care testing, Glucose [Mass/Vol] 117 mg/dL Normal [facility] Comment on above: Result Comment: [place] om Glucose Reference Range is dependent on time and content of last meal. Glucose of more than 200 mg/dL in a nonstressed, ambulatory subject supports the diagnosis of Diabetes Mellitus.PERFORMED BY:[address] [address] [address] LATamikoTracyLUZ [place], [place] [phone] MEDICAL DIRECTORJOSEPH GARCIA M.D. Performed By: #### G LULS ####Point of Care testing, Glucose [Mass/Vol] 153 mg/dL Normal [facility] Comment on above: Result Comment: [place] om Glucose Reference Range is dependent on time and content of last meal. Glucose of more than 200 mg/dL in a nonstressed, ambulatory subject supports the diagnosis of Diabetes Mellitus.PERFORMED BY:[address] [address] [address] [place] [place], [place] [phone] MEDICAL DIRECTORJOSEPH GARCIA M.D. Performed By: #### G LULS ####Point of Care testing, Commemt1 Glu2: Cleaned Meter Normal [facility] Comment on above: Result Comment: PERF ORMED BY:[address] [address] [address] ZAMANLUZ [place], [place] [phone] MEDICAL DIRECTORJOSEPH GARCIA M.D. Performed By: #### G LULS ####Point of Care testing, Glucose [Mass/Vol] 152 mg/dL Normal [facility] Comment on above: Result Comment: [place] om Glucose Reference Range is dependent on time and content of last meal. Glucose of more than 200 mg/dL in a nonstressed, ambulatory subject supports the diagnosis of Diabetes Mellitus. Performed By: #### G LULS ####Point of Care testing, Hematocrit [Volume Fraction] of Blood by Automated countOrdered By: Geo Thomas on 08-21-2023 Hematocrit (Bld) [Volume fraction] 28.3 % Low 38.8-50.0 [facility] Comment on above: Order Comment: DRAW LAST PER RN EMMANUEL Performed By: #### F ER, CBC, BMP, FE and TIBC ####[id number] [facility] Hemoglobin [Mass/volume] in BloodOrdered By: Geo Thomas on 08-21-2023 Hemoglobin (Bld) [Mass/Vol] 9.4 g/dL Low 13.0-17.0 [facility] Comment on above: Order Comment: DRAW LAST PER RN EMMANUEL Performed By: #### F ER, CBC, BMP, FE and TIBC ####[id number] [facility] Iron [Mass/volume] in Serum or PlasmaOrdered By: Mehul Garrett on 08-21-2023 Iron [Mass/Vol] 22 ug/dL Low 50-212 [facility] Comment on above: Order Comment: DRAW LAST PER RN EMMANUEL Performed By: #### F ER, CBC, BMP, FE and TIBC ####[address] [address] [facility] Iron and TIBC Profileon 07-25 % Iron Saturation 12.3 % Low 20-50 [facility] Comment on above: Order Comment: DRAW LAST PER RN EMMANUEL Performed By: #### F ER, CBC, BMP, FE and TIBC ####[address] [address] [facility] Total Iron Binding Capacity 179 ug/dL Low 255-450 [facility] Comment on above: Order Comment: DRAW LAST PER RN EMMANUEL Performed By: #### F ER, CBC, BMP, FE and TIBC ####[address] [address] [facility] Iron binding capacity [Mass/ volume] in Serum or PlasmaOrdered By: Mehul Garrett on 08-21-2023 Iron binding capacity [Mass/Vol] 179 ug/dL 255-450 [facility] Iron saturation [Mass Fracti on] in Serum or PlasmaOrdered By: Mehul Garrett on 08-21-2023 Iron saturation [Mass fraction] 12.3 % 20-50 [facility] Ketones Auto test strip (U) [Mass/Vol]Ordered By: Sury Winkler on 08-21-2023 Ketones (U) [Mass/Vol] Trace Negative [facility] Leukocytes [#/volume] correc jewel for nucleated erythrocytes in Blood by Automated counOrdered By: Geo Thomas on 08-21-2023 WBC corrected for nucl RBC Auto (Bld) [#/Vol] 15.3 10*3/uL 4.1-10.5 [facility] Leukocytes [#/volume] in Blo od by Automated countOrdered By: Geo Thomas on 08-21-2023 WBC (Bld) [#/Vol] 15.3 10*3/uL High 4.1-10.5 [facility] Comment on above: Order Comment: DRAW LAST PER RN EMMANUEL Performed By: #### F ER, CBC, BMP, FE and TIBC ####[facility] [id number] Lymphocytes [#/volume] in Bl ood by Automated countOrdered By: Geo Thomas on 08-21-2023 Lymphocytes (Bld) [#/Vol] 1.8 10*3/uL Normal 1.00-4.8 [facility] Comment on above: Order Comment: DRAW LAST PER RN EMMANUEL Performed By: #### F ER, CBC, BMP, FE and TIBC ####[id number] [place] Lymphocytes/100 leukocytes i n Blood by Automated countOrdered By: Geo Thomas on 08-21-2023 Lymphocytes/100 WBC (Bld) 11.5 % Normal . [facility] Comment on above: Order Comment: DRAW LAST PER RN EMMANUEL Performed By: #### F ER, CBC, BMP, FE and TIBC ####[facility] [id number] MCH [Entitic mass] by Automa jewel countOrdered By: Geo Thomas on 08-21-2023 MCH (RBC) [Entitic mass] 29.6 pg Normal 27.5-35.2 [facility] Comment on above: Order Comment: DRAW LAST PER RN EMMANUEL Performed By: #### F ER, CBC, BMP, FE and TIBC ####[id number] [facility] MCHC Auto (RBC) [Mass/Vol]Or dered By: Geo Thomas on 08-21-2023 MCHC (RBC) [Mass/Vol] 33.2 g/dL 32.5-35.6 [facility] MCV [Entitic volume] by Auto mated countOrdered By: Geo Thomas on 08-21-2023 MCV (RBC) [Entitic vol] 89.1 fL Normal 83.5-101 [facility] Comment on above: Order Comment: DRAW LAST PER RN EMMANUEL Performed By: #### F ER, CBC, BMP, FE and TIBC ####[facility] [id number] [address] Monocytes Auto (Bld) [#/Vol] Ordered By: Geo Thomas on 08-21-2023 Monocytes (Bld) [#/Vol] See comment 0.0-0.8 [facility] Comment on above: Absolute monocytosis is commonly reactive in nature. However, if unexplained, recommend follow-up CBC in 3 months to evaluate for persistence. Neutrophils [#/volume] in Bl ood by Automated countOrdered By: Geo Thomas on 08-21-2023 Neutrophils (Bld) [#/Vol] 10.7 10*3/uL High 1.8-7.7 [facility] Comment on above: Order Comment: DRAW LAST PER RN EMMANUEL Performed By: #### F ER, CBC, BMP, FE and TIBC ####[address] [place] [id number] [facility] Nitrite Test strip Ql (U)Ord ered By: Sury Winkler on 08-21-2023 Nitrite Ql (U) Positive Negative [facility] Nucleated erythrocytes [Pres ence] in Blood by Automated countOrdered By: Geo Thomas on 08-21-2023 Nucleated RBC Auto Ql (Bld) 0.0 /100{WBC} 0-0.5 [facility] Platelet mean volume [Entiti c volume] in Blood by Automated countOrdered By: Geo Thomas on 08-21-2023 Platelet mean volume (Bld) [Entitic vol] 7.6 fL Normal 6.6-10.1 [facility] Comment on above: Order Comment: DRAW LAST PER RN EMMANUEL Performed By: #### F ER, CBC, BMP, FE and TIBC ####[address] Platelets [#/volume] in Bloo d by Automated countOrdered By: Geo Thomas on 08-21-2023 Platelets (Bld) [#/Vol] 740 10*3/uL High 150-450 [facility] Comment on above: Order Comment: DRAW LAST PER RN EMMANUEL Performed By: #### F ER, CBC, BMP, FE and TIBC ####[address] [place] [id number] [facility] Specific gravity Auto test s trip (U) [Rel density]Ordered By: Sury Winkler on 08-21-2023 Specific gravity (U) [Rel density] 1.026 1.001-1.030 [facility] Squamous epithelial cells de tection in urine sediment by light microscopyOrdered By: Sury Winkler on 08-21-2023 Epithelial cells.squamous LM Ql (Urine sed) None seen [HPF] 0-2 [facility] Transferrin [Mass/volume] in Serum or PlasmaOrdered By: Mehul Garrett on 08-21-2023 Transferrin [Mass/Vol] 128 mg/dL Low 203-362 [facility] Comment on above: Order Comment: DRAW LAST PER RN EMMANUEL Performed By: #### F ER, CBC, BMP, FE and TIBC ####[facility] [id number] [facility] Urine Cultureon 08-21-2023 Bacteria identified Cx Nom (U) Normal [facility] Comment on above: Performed By: #### C UU, ADDONUAPLUS ####[facility] [id number] [facility] Urine bacteria detection by automated methodOrdered By: Sury Winkler on 08-21-2023 Bacteria Auto Ql (U) 4+ None Seen [facility] Urine clarity by refractomet ry automatedOrdered By: Sury Winkler on 08-21-2023 Clarity Refractometry automated (U) Turbid Clear [facility] Urine culture routineOrdered By: Sury Winkler on 08-21-2023 Bacteria identified Cx Nom (U) Klebsiella pneumoniae (CRE) [facility] Urine glucose measurement by automated test strip (mass/volume)Ordered By: Sury Winkler on 08-21-2023 Glucose Auto test strip (U) [Mass/Vol] Normal mg/dL Normal [facility] Urine hemoglobin detection b y automated test stripOrdered By: Sury Winkler on 08-21-2023 Hemoglobin Auto test strip Ql (U) 2+ Negative [facility] Urine leukocyte esterase det ection by automated test stripOrdered By: Sury Winkler on 08-21-2023 Leukocyte esterase Auto test strip Ql (U) 3+ Negative [facility] Urine pH measurement by auto mated test stripOrdered By: Sury Winkler on 08-21-2023 pH (U) 5.0 [pH] Normal 5.0-9.0 [facility] Comment on above: Order Comment: Name Collection Type:: Santana Catheter Performed By: #### C UU, ADDONUAPLUS ####[facility] [id number] [facility] Urine protein measurement by automated test strip (mass/volume)Ordered By: Sury Winkler on 08-21-2023 Protein (U) [Mass/Vol] 30 mg/dL High Negative [facility] Comment on above: Order Comment: Name Collection Type:: Santana Catheter Performed By: #### C UU, ADDONUAPLUS ####[address] [address] [facility] Urine sediment waxy cast cou nt by microscopy (number/low power field)Ordered By: Sury Winkler on 08-21-2023 Waxy casts LM.LPF (Urine sed) [#/Area] 1-2 [LPF] None Seen [facility] Urobilinogen Auto test strip (U) [Mass/Vol]Ordered By: Sury Winkler on 08-21-2023 Urobilinogen (U) [Mass/Vol] Normal mg/dL Normal [facility] Yeast detection in urine sed iment by light microscopyOrdered By: Sury Winkler on 08-21-2023 Yeast LM Ql (Urine sed) None seen [HPF] None Seen [facility] Basic Metabolic Panelon 07-25 Anion gap [Moles/Vol] 8.7 mmol/L Normal 6.0-15.0 [facility] Comment on above: Performed By: #### B MP, CBC ####[id number] [facility] Calcium [Mass/Vol] 8.6 mg/dL Normal 8.6-10.3 [facility] Comment on above: Performed By: #### B MP, CBC ####[id number] [facility] Chloride [Moles/Vol] 97 mmol/L Low 98-107 [facility] Comment on above: Performed By: #### B MP, CBC ####[id number] [facility] CO2 [Moles/Vol] 28.0 mmol/L Normal 21.0-31.0 [facility] Comment on above: Performed By: #### B MP, CBC ####[id number] [facility] Creatinine [Mass/Vol] 2.49 mg/dL High 0.70-1.30 [facility] Comment on above: Performed By: #### B MP, CBC ####[address] [place] [address] [facility] Creatinine Clr Calc Pharmacy 28.82 Normal [facility] Comment on above: Result Comment: PERF ORMED BY:[address] [address] [address] [place], [place] [phone] MEDICAL SILVIA GARCIA M.D. Performed By: #### B MP, CBC ####[id number] [facility] GFR/1.73 sq M.predicted MDRD (S/P/Bld) [Vol rate/Area] 26.926 mL/min/{1.73_m2} Normal [facility] Comment on above: Performed By: #### B MP, CBC ####[address] [id number] [facility] Glucose [Mass/Vol] 167 mg/dL Significant change up 70-100 [facility] Comment on above: Result Comment: [facility][note 3] Glucose Reference Range is dependent on time and content of last meal. Glucose of more than 200 mg/dL in a nonstressed, ambulatory subject supports the diagnosis of Diabetes Mellitus. ADA recommended reference range Performed By: #### B MP, CBC ####[id number] [facility] Potassium [Moles/Vol] 3.7 mmol/L Normal 3.5-5.1 [facility] Comment on above: Performed By: #### B MP, CBC ####[id number] [facility] Sodium [Moles/Vol] 130 mmol/L Low 136-145 [facility] Comment on above: Performed By: #### B MP, CBC ####[address] [id number] [facility] Urea nitrogen [Mass/Vol] 69 mg/dL High 7-25 [facility] Comment on above: Performed By: #### B MP, CBC ####[address] [id number] [facility] Complete Blood Count Auto Di ffon 08-20-2023 Basophils (Bld) [#/Vol] 0.1 10*3/uL Normal 0.0-0.2 [facility] Comment on above: Result Comment: PERF ORMED BY:[address] [place], [place] [phone] MEDICAL DIRECTORJOSEPH GARCIA M.D. Performed By: #### B MP, CBC ####[address] Basophils/100 WBC (Bld) 1.0 % Normal . [facility] Comment on above: Performed By: #### B MP, CBC ####[address] Eosinophils (Bld) [#/Vol] 0.2 10*3/uL Normal 0.0-0.45 [facility] Comment on above: Performed By: #### B MP, CBC ####[address] Eosinophils/100 WBC (Bld) 1.5 % Normal . [facility] Comment on above: Performed By: #### B MP, CBC ####[address] Erythrocyte distribution width (RBC) [Ratio] 17.7 % High 12.0-14.8 [facility] Comment on above: Performed By: #### B MP, CBC ####[address] Hematocrit (Bld) [Volume fraction] 28.1 % Low 38.8-50.0 [facility] Comment on above: Performed By: #### B MP, CBC ####[address] [id number] [facility] Hemoglobin (Bld) [Mass/Vol] 9.4 g/dL Low 13.0-17.0 [facility] Comment on above: Performed By: #### B MP, CBC ####[address] Lymphocytes (Bld) [#/Vol] 2.0 10*3/uL Normal 1.00-4.8 [facility] Comment on above: Performed By: #### B MP, CBC ####[address] Lymphocytes/100 WBC (Bld) 16.1 % Normal . [facility] Comment on above: Performed By: #### B MP, CBC ####[address] [place] [id number] [facility] MCH (RBC) [Entitic mass] 29.9 pg Normal 27.5-35.2 [facility] Comment on above: Performed By: #### B MP, CBC ####[address] MCV (RBC) [Entitic vol] 88.9 fL Normal 83.5-101 [facility] Comment on above: Performed By: #### B MP, CBC ####[address] Mean Corpuscular HGB Conc 33.6 g/dL Normal 32.5-35.6 [facility] Comment on above: Performed By: #### B MP, CBC ####[address] Monocytes (Bld) [#/Vol] 2.0 10*3/uL High 0.0-0.8 [facility] Comment on above: Performed By: #### B MP, CBC ####[address] Monocytes/100 WBC (Bld) 15.9 % Normal . [facility] Comment on above: Result Comment: Abso lute monocytosis is commonly reactive in nature. However, if unexplained, recommend follow-up CBC in 3 months to evaluate for persistence. Performed By: #### B MP, CBC ####[address] Neutrophils (Bld) [#/Vol] 8.2 10*3/uL High 1.8-7.7 [facility] Comment on above: Performed By: #### B MP, CBC ####[place] [id number] [facility] Neutrophils/100 WBC (Bld) 65.5 % Normal . [facility] Comment on above: Performed By: #### B MP, CBC ####[place] [id number] [facility] NRBC% 0.1 /100{WBC} Normal 0-0.5 [facility] Comment on above: Performed By: #### B MP, CBC ####[place] [place] [id number] [facility] Platelet mean volume (Bld) [Entitic vol] 7.5 fL Normal 6.6-10.1 [facility] Comment on above: Performed By: #### B MP, CBC ####[place] [id number] [facility] Platelets (Bld) [#/Vol] 781 10*3/uL High 150-450 [facility] Comment on above: Performed By: #### B MP, CBC ####[place] [id number] [facility] RBC (Bld) [#/Vol] 3.16 10*6/uL Low 3.90-5.60 [facility] Comment on above: Performed By: #### B MP, CBC ####[place] [id number] [facility] WBC (Bld) [#/Vol] 12.5 10*3/uL High 4.1-10.5 [facility] Comment on above: Performed By: #### B MP, CBC ####[place] [id number] [facility] Glucose Poct Glucometerson 0 08-20-2023 Commemt1 Glu2: Cleaned Meter Normal [facility] Comment on above: Result Comment: PERF ORMED BY:[address] [place], [place] [phone] MEDICAL DIRECTORJOSEPH GARCIA M.D. Performed By: #### G VALERY ####Point of Care testing, Glucose [Mass/Vol] 174 mg/dL Normal [facility] Comment on above: Result Comment: [place] om Glucose Reference Range is dependent on time and content of last meal. Glucose of more than 200 mg/dL in a nonstressed, ambulatory subject supports the diagnosis of Diabetes Mellitus. Performed By: #### G LULS ####Point of Care testing, Commemt1 Glu2: Cleaned Meter Normal [facility] Comment on above: Result Comment: PERF ORMED BY:[address] [address] [address]AMANLUZ [place], [place] [phone] MEDICAL DIRECTORJOSEPH GARCIA M.D. Performed By: #### G LULS ####Point of Care testing, Glucose [Mass/Vol] 202 mg/dL Normal [facility] Comment on above: Result Comment: [place] om Glucose Reference Range is dependent on time and content of last meal. Glucose of more than 200 mg/dL in a nonstressed, ambulatory subject supports the diagnosis of Diabetes Mellitus. Performed By: #### G LULS ####Point of Care testing, Commemt1 Glu2: Cleaned Meter Normal [facility] Comment on above: Result Comment: PERF ORMED BY:[address] [place], [place] [phone] MEDICAL DIRECTORJOSEPH GARCIA M.D. Performed By: #### G LULS ####Point of Care testing, Glucose [Mass/Vol] 140 mg/dL Normal [facility] Comment on above: Result Comment: [place] om Glucose Reference Range is dependent on time and content of last meal. Glucose of more than 200 mg/dL in a nonstressed, ambulatory subject supports the diagnosis of Diabetes Mellitus. Performed By: #### G LULS ####Point of Care testing, Commemt1 Glu2: Cleaned Meter Normal [facility] Comment on above: Result Comment: PERF ORMED BY:[address] [place], [place] [phone] MEDICAL DIRECTORJOSEPH GARCIA M.D. Performed By: #### G LULS ####Point of Care testing, Glucose [Mass/Vol] 152 mg/dL Normal [facility] Comment on above: Result Comment: [place] om Glucose Reference Range is dependent on time and content of last meal. Glucose of more than 200 mg/dL in a nonstressed, ambulatory subject supports the diagnosis of Diabetes Mellitus. Performed By: #### G LULS ####Point of Care testing, Commemt1 Glu2: Cleaned Meter Normal [facility] Comment on above: Result Comment: PERF ORMED BY:[facility] [place], [place] [phone] MEDICAL DIRECTORJOSEPH GARCIA M.D. Performed By: #### G LULS ####Point of Care testing, Glucose [Mass/Vol] 176 mg/dL Normal [facility] Comment on above: Result Comment: [place] om Glucose Reference Range is dependent on time and content of last meal. Glucose of more than 200 mg/dL in a nonstressed, ambulatory subject supports the diagnosis of Diabetes Mellitus. Performed By: #### G LULS ####Point of Care testing, Arterial Blood Gason 024 ABG Base Excess 4.5 mmol/L High -3.0-3.0 [facility] Comment on above: Performed By: #### A BG ####Point of Care testing, ABG Frac Inspired O2 30 % Normal [facility] Comment on above: Performed By: #### A BG ####Point of Care testing, ABG Oxygen Content 6.1 mmol/L Low 6.6-9.7 [facility] Comment on above: Performed By: #### A BG ####Point of Care testing, ABG Oxygen Saturation 97.9 % Normal 95.0-100.0 [facility] Comment on above: Performed By: #### A BG ####Point of Care testing, ABG PCO2 31.8 mm[Hg] Low 35.0-45.0 [facility] Comment on above: Performed By: #### A BG ####Point of Care testing, ABG PEEP 5 Normal [facility] Comment on above: Performed By: #### A BG ####Point of Care testing, ABG PH 7.54 High 7.35-7.45 [facility] Comment on above: Performed By: #### A BG ####Point of Care testing, ABG PO2 105.4 mm[Hg] High 80.0-100.0 [facility] Comment on above: Performed By: #### A BG ####Point of Care testing, ABG TV 450 mL Normal [facility] Comment on above: Performed By: #### A BG ####Point of Care testing, Respiratory Critical Normal [facility] Comment on above: Result Comment: Crit ical Value called on: 08/19/2023 at 04:20PERFORMED BY:[facility] [place], [place] [phone] MEDICAL DIRECTORJOSEPH GARCIA M.D. Performed By: #### A BG ####Point of Care testing, Set Respiratory Rate 14 Normal [facility] Comment on above: Performed By: #### A BG ####Point of Care testing, VBG Draw Site Left Radial Normal [facility] Comment on above: Performed By: #### A BG ####Point of Care testing, Ventilator Mode AC Normal [facility] Comment on above: Performed By: #### A BG ####Point of Care testing, Arterial Blood GasOrdered By : Arnaldo Thomas on 08-19-2023 CO2 [Moles/Vol] 27.8 mmol/L High 23.0-27.0 [facility] Comment on above: Performed By: #### A BG ####Point of Care testing, HCO3 (Bld) [Moles/Vol] 26.8 mmol/L Normal 23.0-29.0 [facility] Comment on above: Performed By: #### A BG ####Point of Care testing, Basic Metabolic Panelon 07-25 Anion gap [Moles/Vol] 8.0 mmol/L Normal 6.0-15.0 [facility] Comment on above: Performed By: #### C BC, BMP ####[address] [address] [facility] Calcium [Mass/Vol] 8.3 mg/dL Low 8.6-10.3 [facility] Comment on above: Performed By: #### C BC, BMP ####[address] [address] [facility] Chloride [Moles/Vol] 99 mmol/L Normal 98-107 [facility] Comment on above: Performed By: #### C BC, BMP ####[address] [address] [facility] CO2 [Moles/Vol] 29.6 mmol/L Normal 21.0-31.0 [facility] Comment on above: Performed By: #### C BC, BMP ####[address] [address] [facility] Creatinine [Mass/Vol] 2.23 mg/dL Significan t change up 0.70-1.30 [facility] Comment on above: Performed By: #### C BC, BMP ####[address] [address] [facility] Creatinine Clr Calc Pharmacy 32.49 Normal [facility] Comment on above: Result Comment: PERF ORMED BY:[address] [place], [place] [phone] MEDICAL DIRECTORJOSEPH GARCIA M.D. Performed By: #### C BC, BMP ####[place] [id number] [facility] GFR/1.73 sq M.predicted MDRD (S/P/Bld) [Vol rate/Area] 30.736 mL/min/{1.73_m2} Normal [facility] Comment on above: Performed By: #### C BC, BMP ####[place] [id number] [facility] Glucose [Mass/Vol] 67 mg/dL Significant change down 70-100 [facility] Comment on above: Result Comment: [place] Glucose Reference Range is dependent on time and content of last meal. Glucose of more than 200 mg/dL in a nonstressed, ambulatory subject supports the diagnosis of Diabetes Mellitus. ADA recommended reference range Performed By: #### C BC, BMP ####[address] Potassium [Moles/Vol] 3.6 mmol/L Normal 3.5-5.1 [facility] Comment on above: Performed By: #### C BC, BMP ####[address] Sodium [Moles/Vol] 133 mmol/L Low 136-145 [facility] Comment on above: Performed By: #### C HIGINIO, BMP ####[address] Urea nitrogen [Mass/Vol] 48 mg/dL Significant change up 12-17 [facility] Comment on above: Performed By: #### C HIGINIO, BMP ####[address] Complete Blood Count Auto Di ffon 08-19-2023 Basophils (Bld) [#/Vol] 0.1 10*3/uL Normal 0.0-0.2 [facility] Comment on above: Result Comment: PERF ORMED BY:[address] [place], [place] [phone] MEDICAL DIRECTORJOSEPH GARCIA M.D. Performed By: #### C BC, BMP ####[address] Basophils/100 WBC (Bld) 1.1 % Normal . [facility] Comment on above: Performed By: #### C BC, BMP ####[address] Eosinophils (Bld) [#/Vol] 0.1 10*3/uL Normal 0.0-0.45 [facility] Comment on above: Performed By: #### C BC, BMP ####[address] Eosinophils/100 WBC (Bld) 1.2 % Normal . [facility] Comment on above: Performed By: #### C BC, BMP ####[address] Erythrocyte distribution width (RBC) [Ratio] 17.3 % High 12.0-14.8 [facility] Comment on above: Performed By: #### C BC, BMP ####[address] Hematocrit (Bld) [Volume fraction] 27.2 % Low 38.8-50.0 [facility] Comment on above: Performed By: #### C BC, BMP ####[address] Hemoglobin (Bld) [Mass/Vol] 9.3 g/dL Low 13.0-17.0 [facility] Comment on above: Performed By: #### C BC, BMP ####[address] Lymphocytes (Bld) [#/Vol] 2.0 10*3/uL Normal 1.00-4.8 [facility] Comment on above: Performed By: #### C BC, BMP ####[address] Lymphocytes/100 WBC (Bld) 16.7 % Normal . [facility] Comment on above: Performed By: #### C BC, BMP ####[address] MCH (RBC) [Entitic mass] 30.3 pg Normal 27.5-35.2 [facility] Comment on above: Performed By: #### C BC, BMP ####[address] MCV (RBC) [Entitic vol] 88.4 fL Normal 83.5-101 [facility] Comment on above: Performed By: #### C BC, BMP ####[address] Mean Corpuscular HGB Conc 34.3 g/dL Normal 32.5-35.6 [facility] Comment on above: Performed By: #### C BC, BMP ####[address] Monocytes (Bld) [#/Vol] 2.0 10*3/uL High 0.0-0.8 [facility] Comment on above: Performed By: #### C BC, BMP ####[address] Monocytes/100 WBC (Bld) 16.2 % Normal . [facility] Comment on above: Performed By: #### C BC, BMP ####[address] Neutrophils (Bld) [#/Vol] 7.8 10*3/uL High 1.8-7.7 [facility] Comment on above: Performed By: #### C HIGINIO, BMP ####[address] Neutrophils/100 WBC (Bld) 64.8 % Normal . [facility] Comment on above: Performed By: #### C HIGINIO, BMP ####[address] NRBC% 0.1 /100{WBC} Normal 0-0.5 [facility] Comment on above: Performed By: #### C BC, BMP ####[address] Platelet mean volume (Bld) [Entitic vol] 7.2 fL Normal 6.6-10.1 [facility] Comment on above: Performed By: #### C BC, BMP ####[place] [id number] [facility] Platelets (Bld) [#/Vol] 737 10*3/uL High 150-450 [facility] Comment on above: Performed By: #### C BC, BMP ####[address] RBC (Bld) [#/Vol] 3.07 10*6/uL Low 3.90-5.60 [facility] Comment on above: Performed By: #### C HIGINIO, BMP ####[address] [address] [facility] WBC (Bld) [#/Vol] 12.1 10*3/uL High 4.1-10.5 [facility] Comment on above: Performed By: #### C HIGINIO, BMP ####[address] [address] [facility] Glucose Poct Glucometerson 0 08-19-2023 Commemt1 Glu2: Cleaned Meter Normal [facility] Comment on above: Result Comment: PERF ORMED BY:[address] [place], [place] [phone] MEDICAL DIRECTORJOSEPH GARCIA M.D. Performed By: #### G LULS ####Point of Care testing, Glucose [Mass/Vol] 135 mg/dL Normal [facility] Comment on above: Result Comment: [place] Glucose Reference Range is dependent on time and content of last meal. Glucose of more than 200 mg/dL in a nonstressed, ambulatory subject supports the diagnosis of Diabetes Mellitus. Performed By: #### G LULS ####Point of Care testing, Commemt1 Glu2: Cleaned Meter Normal [facility] Comment on above: Result Comment: PERF ORMED BY:[address] [place], [place] [phone] MEDICAL DIRECTORJOSEPH GARCIA M.D. Performed By: #### G LULS ####Point of Care testing, Glucose [Mass/Vol] 108 mg/dL Normal [facility] Comment on above: Result Comment: [place] om Glucose Reference Range is dependent on time and content of last meal. Glucose of more than 200 mg/dL in a nonstressed, ambulatory subject supports the diagnosis of Diabetes Mellitus. Performed By: #### G LULS ####Point of Care testing, Commemt1 Glu2: Cleaned Meter Normal [facility] Comment on above: Result Comment: PERF ORMED BY:[address] [address] [address] [place], [place] [phone] MEDICAL DIRECTORJOSEPH GARCIA M.D. Performed By: #### G LULS ####Point of Care testing, Glucose [Mass/Vol] 87 mg/dL Normal [facility] Comment on above: Result Comment: [place] om Glucose Reference Range is dependent on time and content of last meal. Glucose of more than 200 mg/dL in a nonstressed, ambulatory subject supports the diagnosis of Diabetes Mellitus. Performed By: #### G LULS ####Point of Care testing, Commemt1 Glu2: Cleaned Meter Normal [facility] Comment on above: Result Comment: PERF ORMED BY:[address] [address] [address] [place], [place] [phone] MEDICAL DIRECTORJOSEPH GARCIA M.D. Performed By: #### G LULS ####Point of Care testing, Glucose [Mass/Vol] 105 mg/dL Normal [facility] Comment on above: Result Comment: [place] om Glucose Reference Range is dependent on time and content of last meal. Glucose of more than 200 mg/dL in a nonstressed, ambulatory subject supports the diagnosis of Diabetes Mellitus. Performed By: #### G LULS ####Point of Care testing, Commemt1 Glu2: Cleaned Meter Normal [facility] Comment on above: Result Comment: PERF ORMED BY:[address] [place], [place] [phone] MEDICAL DIRECTORJOSEPH GARCIA M.D. Performed By: #### G LULS ####Point of Care testing, Glucose [Mass/Vol] 165 mg/dL Normal [facility] Comment on above: Result Comment: [place] om Glucose Reference Range is dependent on time and content of last meal. Glucose of more than 200 mg/dL in a nonstressed, ambulatory subject supports the diagnosis of Diabetes Mellitus. Performed By: #### G LULS ####Point of Care testing, Commemt1 Glu2: Cleaned Meter Normal [facility] Comment on above: Result Comment: PERF ORMED BY:[facility] [place], [place] [phone] MEDICAL DIRECTORJOSEPH GARCIA M.D. Performed By: #### G LULS ####Point of Care testing, Glucose [Mass/Vol] 109 mg/dL Normal [facility] Comment on above: Result Comment: [place] Glucose Reference Range is dependent on time and content of last meal. Glucose of more than 200 mg/dL in a nonstressed, ambulatory subject supports the diagnosis of Diabetes Mellitus. Performed By: #### G LULS ####Point of Care testing, No Panel InformationOrdered By: Arnaldo Thomas on 08-19-2023 Arterial Blood Base Excess 4.5 mmol/L -3.0-3.0 [facility] Arterial Blood Oxygen Content 6.1 mmol/L 6.6-9.7 [facility] Arterial Blood Oxygen Saturation 97.9 % 95.0-100.0 [facility] Arterial Blood Partial Pressure CO2 31.8 mm[Hg] 35.0-45.0 [facility] Arterial Blood Partial Pressure O2 105.4 mm[Hg] 80.0-100.0 [facility] Arterial Blood pH 7.54 7.35-7.45 [facility] Blood Gas Critical Value See comment [facility] Comment on above: Critical Value milian jose on: 08/19/2023 at 04:20 Blood Gas PEEP 5 cmH2O [facility] Blood Gas Sample Site Left radial [facility] Blood Gas Set Respiration Rate 14 [facility] Blood Gas Tidal Volume 450 mL [facility] Blood Gas Ventilator Mode Ac [facility] FiO2 30 % [facility] 7.54 7.35-7.45 [facility] 31.8 mm[Hg] 35.0-45.0 [facility] 105.4 mm[Hg] 80.0-100.0 [facility] 26.8 mmol/L 23.0-29.0 [facility] 4.5 mmol/L -3.0-3.0 [facility] 97.9 % 95.0-100.0 [facility] 6.1 mmol/L 6.6-9.7 [facility] 27.8 mmol/L 23.0-27.0 [facility] 30 % [facility] 450 mL [facility] 5 cmH2O [facility] Left radial [facility] Ac [facility] 14 [facility] See comment [facility] Anisocytosis [Presence] in B lood by Light microscopyOrdered By: Geo Thomas on 08-18-2023 Anisocytosis Ql (Bld) Moderate Normal [facility] Comment on above: Performed By: #### S CAN CBC, BMP ####[place] [id number] [place] [id number] [facility] Basic Metabolic Panelon 07-25 Anion gap [Moles/Vol] 10.7 mmol/L Normal 6.0-15.[address] [facility] Comment on above: Performed By: #### S CAN CBC, BMP ####[place] [id number] [facility] Calcium [Mass/Vol] 8.6 mg/dL Normal 8.6-10.3 [facility] Comment on above: Performed By: #### S CAN CBC, BMP ####[place] [id number] [facility] Chloride [Moles/Vol] 98 mmol/L Normal 98-107 [facility] Comment on above: Performed By: #### S CAN CBC, BMP ####[place] [id number] [facility] CO2 [Moles/Vol] 26.8 mmol/L Normal 21.0-31.0 [facility] Comment on above: Performed By: #### S CAN CBC, BMP ####[place] [id number] [facility] Creatinine [Mass/Vol] 2.95 mg/dL High 0.70-1.30 [facility] Comment on above: Performed By: #### S CAN CBC, BMP ####[address] [address] [place] Creatinine Clr Calc Pharmacy 24.59 Normal [facility] Comment on above: Result Comment: PERF ORMED BY:[address] [place], [place] [phone] MEDICAL DIRECTORJOSEPH GARCIA M.D. Performed By: #### S CAN CBC, BMP ####[address] [place] [address] [place] GFR/1.73 sq M.predicted MDRD (S/P/Bld) [Vol rate/Area] 21.969 mL/min/{1.73_m2} Normal [facility] Comment on above: Performed By: #### S CAN CBC, BMP ####[address] [place] [address] [place] Glucose [Mass/Vol] 186 mg/dL High 70-100 [facility] Comment on above: Result Comment: [place] Glucose Reference Range is dependent on time and content of last meal. Glucose of more than 200 mg/dL in a nonstressed, ambulatory subject supports the diagnosis of Diabetes Mellitus. ADA recommended reference range Performed By: #### S CAN CBC, BMP ####[address] [address] [place] Potassium [Moles/Vol] 3.5 mmol/L Normal 3.5-5.1 [facility] Comment on above: Performed By: #### S CAN CBC, BMP ####[address] [place] [address] [place] Sodium [Moles/Vol] 132 mmol/L Low 136-145 [facility] Comment on above: Performed By: #### S CAN CBC, BMP ####[address] [place] [address] [place] Urea nitrogen [Mass/Vol] 91 mg/dL High 7-25 [facility] Comment on above: Performed By: #### S CAN CBC, BMP ####[address] [place] [address] [place] Glucose Poct Glucometerson 0 08-18-2023 Commemt1 Glu2: Cleaned Meter Normal [facility] Comment on above: Result Comment: PERF ORMED BY:[address] [place], [place] [phone] MEDICAL DIRECTORJOSEPH GARCIA M.D. Performed By: #### G LULS ####Point of Care testing, Glucose [Mass/Vol] 147 mg/dL Normal [facility] Comment on above: Result Comment: [place] om Glucose Reference Range is dependent on time and content of last meal. Glucose of more than 200 mg/dL in a nonstressed, ambulatory subject supports the diagnosis of Diabetes Mellitus. Performed By: #### G LULS ####Point of Care testing, Glucose [Mass/Vol] 116 mg/dL Normal [facility] Comment on above: Result Comment: [place] om Glucose Reference Range is dependent on time and content of last meal. Glucose of more than 200 mg/dL in a nonstressed, ambulatory subject supports the diagnosis of Diabetes Mellitus.PERFORMED BY:[address] [address] [address] [place], [place] [phone] MEDICAL DIRECTORJOSEPH GARCIA M.D. Performed By: #### G LULS ####Point of Care testing, Platelet adequacy [Presence] in Blood by Light microscopyOrdered By: Geo Thomas on 08-18-2023 Platelets LM Ql (Bld) Increased Normal [facility] Platelet morphology finding [Identifier] in BloodOrdered By: Geo Thomas on 08-18-2023 Platelet morphology finding Nom (Bld) Normal Normal [facility] Polychromasia [Presence] in Blood by Light microscopyOrdered By: Geo Thomas on 08-18-2023 Polychromasia LM Ql (Bld) Slight [facility] RBC morphologyOrdered By: Milton Thomas on 08-18-2023 RBC morphology finding Nom (Bld) N/A [facility] Scan and CBCon 08-18-2023 Basophils (Bld) [#/Vol] 0.2 10*3/uL Normal 0.0-0.2 [facility] Comment on above: Result Comment: PERF ORMED BY:[facility] [address] [id number] MEDICAL DIRECTORJOSEPH GARCIA M.D. Performed By: #### S CAN CBC, BMP ####[address] Basophils/100 WBC (Bld) 0.8 % Normal . [facility] Comment on above: Performed By: #### S CAN CBC, BMP ####[address] Eosinophils (Bld) [#/Vol] 0.1 10*3/uL Normal 0.0-0.45 [facility] Comment on above: Performed By: #### S CAN CBC, BMP ####[address] Eosinophils/100 WBC (Bld) 0.4 % Normal . [facility] Comment on above: Performed By: #### S CAN CBC, BMP ####[address] Erythrocyte distribution width (RBC) [Ratio] 17.3 % High 12.0-14.8 [facility] Comment on above: Performed By: #### S CAN CBC, BMP ####[address] Hematocrit (Bld) [Volume fraction] 28.4 % Low 38.8-50.0 [facility] Comment on above: Performed By: #### S CAN CBC, BMP ####[address] Hemoglobin (Bld) [Mass/Vol] 9.7 g/dL Low 13.0-17.0 [facility] Comment on above: Performed By: #### S CAN CBC, BMP ####[address] Lymphocytes (Bld) [#/Vol] 1.9 10*3/uL Normal 1.00-4.8 [facility] Comment on above: Performed By: #### S CAN CBC, BMP ####[address] Lymphocytes/100 WBC (Bld) 9.6 % Normal . [facility] Comment on above: Performed By: #### S CAN CBC, BMP ####[address] MCH (RBC) [Entitic mass] 30.9 pg Normal 27.5-35.2 [facility] Comment on above: Performed By: #### S CAN CBC, BMP ####[address] MCV (RBC) [Entitic vol] 90.2 fL Normal 83.5-101 [facility] Comment on above: Performed By: #### S CAN CBC, BMP ####[address] Mean Corpuscular HGB Conc 34.2 g/dL Normal 32.5-35.6 [facility] Comment on above: Performed By: #### S CAN CBC, BMP ####[address] Monocytes (Bld) [#/Vol] 2.2 10*3/uL High 0.0-0.8 [facility] Comment on above: Performed By: #### S CAN CBC, BMP ####[address] Monocytes/100 WBC (Bld) 11.0 % Normal . [facility] Comment on above: Performed By: #### S CAN CBC, BMP ####[address] Neutrophils (Bld) [#/Vol] 15.3 10*3/uL High 1.8-7.7 [facility] Comment on above: Performed By: #### S CAN CBC, BMP ####[address] Neutrophils/100 WBC (Bld) 78.2 % Normal . [facility] Comment on above: Performed By: #### S CAN CBC, BMP ####[place] [id number] [facility] NRBC% 0.0 /100{WBC} Normal 0-0.5 [facility] Comment on above: Performed By: #### S CAN CBC, BMP ####[place] [id number] [facility] Platelet Estimate Increased Normal Normal [facility] Comment on above: Performed By: #### S CAN CBC, BMP ####[place] [id number] [facility] Platelet mean volume (Bld) [Entitic vol] 7.3 fL Normal 6.6-10.1 [facility] Comment on above: Performed By: #### S CAN CBC, BMP ####[address] Platelet Morphology Normal Normal Normal [facility] Comment on above: Result Comment: PERF ORMED BY:[address] [place], [place] [phone] MEDICAL DIRECTORJOSEPH GARCIA M.D. Performed By: #### S CAN CBC, BMP ####[address] Platelets (Bld) [#/Vol] 805 10*3/uL High 150-450 [facility] Comment on above: Performed By: #### S CAN CBC, BMP ####[address] Polychromasia Slight Normal [facility] Comment on above: Performed By: #### S CAN CBC, BMP ####[address] RBC (Bld) [#/Vol] 3.14 10*6/uL Low 3.90-5.60 [facility] Comment on above: Performed By: #### S CAN CBC, BMP ####[place] [id number] [facility] WBC (Bld) [#/Vol] 19.5 10*3/uL High 4.1-10.5 [facility] Comment on above: Performed By: #### S CAN CBC, BMP ####[address] [address] [facility] XR abdomen 1Von 08-18-2023 XR abdomen 1V Normal [facility] XR abdomen 1V Normal [facility] Basic Metabolic Panelon 07-25 Anion gap [Moles/Vol] 10.3 mmol/L Normal 6.0-15.0 [facility] Comment on above: Performed By: #### S CAN CBC, BMP ####[address] [address] [facility] Calcium [Mass/Vol] 8.4 mg/dL Low 8.6-10.3 The [facility] Comment on above: Performed By: #### S CAN CBC, BMP ####[place] [place] [address] [facility] Chloride [Moles/Vol] 98 mmol/L Normal 98-107 [facility] Comment on above: Performed By: #### S CAN CBC, BMP ####[address] [address] [facility] CO2 [Moles/Vol] 27.2 mmol/L Normal 21.0-31.0 [facility] Comment on above: Performed By: #### S CAN CBC, BMP ####[address] [address] [facility] Creatinine [Mass/Vol] 3.33 mg/dL High 0.70-1.30 [facility] Comment on above: Performed By: #### S CAN CBC, BMP ####[address] [address] [facility] Creatinine Clr Calc Pharmacy 21.78 Normal [facility] Comment on above: Result Comment: PERF ORMED BY:[address] [place], [place] [phone] MEDICAL SILVIA GARCIA M.D. Performed By: #### S CAN CBC, BMP ####[address] [address] [place] GFR/1.73 sq M.predicted MDRD (S/P/Bld) [Vol rate/Area] 18.997 mL/min/{1.73_m2} Normal [facility] Comment on above: Performed By: #### S CAN CBC, BMP ####[place] [address] [place] [id number] [facility] Glucose [Mass/Vol] 173 mg/dL High 70-100 [facility] Comment on above: Result Comment: [facility][note 3] Glucose Reference Range is dependent on time and content of last meal. Glucose of more than 200 mg/dL in a nonstressed, ambulatory subject supports the diagnosis of Diabetes Mellitus. ADA recommended reference range Performed By: #### S CAN CBC, BMP ####[place] [id number] [facility] Potassium [Moles/Vol] 3.5 mmol/L Normal 3.5-5.1 [facility] Comment on above: Performed By: #### S CAN CBC, BMP ####[place] [id number] [facility] Sodium [Moles/Vol] 132 mmol/L Low 136-145 [facility] Comment on above: Performed By: #### S CAN CBC, BMP ####[place] [id number] [facility] Urea nitrogen [Mass/Vol] 72 mg/dL High 7-25 [facility] Comment on above: Performed By: #### S CAN CBC, BMP ####[place] [id number] [place] Glucose Poct Glucometerson 0 08-17-2023 Glucose [Mass/Vol] 145 mg/dL Normal [facility] Comment on above: Result Comment: [facility][note 3] Glucose Reference Range is dependent on time and content of last meal. Glucose of more than 200 mg/dL in a nonstressed, ambulatory subject supports the diagnosis of Diabetes Mellitus.PERFORMED BY:[address] [place], [place] [phone] MEDICAL DIRECTORJOSEPH GARCIA M.D. Performed By: #### G LULS ####Point of Care testing, Glucose [Mass/Vol] 172 mg/dL Normal [facility] Comment on above: Result Comment: [place] om Glucose Reference Range is dependent on time and content of last meal. Glucose of more than 200 mg/dL in a nonstressed, ambulatory subject supports the diagnosis of Diabetes Mellitus.PERFORMED BY:[place] [address] [address] [place] [place], [place] [phone] MEDICAL DIRECTORJOSEPH GARCIA M.D. Performed By: #### G LULS ####Point of Care testing, Commemt1 Glu2: Cleaned Meter Normal [facility] Comment on above: Result Comment: PERF ORMED BY:[address] [place] [place], [place] [phone] MEDICAL DIRECTORJOSEPH GARCIA M.D. Performed By: #### G LULS ####Point of Care testing, Glucose [Mass/Vol] 159 mg/dL Normal [facility] Comment on above: Result Comment: [place] om Glucose Reference Range is dependent on time and content of last meal. Glucose of more than 200 mg/dL in a nonstressed, ambulatory subject supports the diagnosis of Diabetes Mellitus. Performed By: #### G LULS ####Point of Care testing, Commemt1 Glu2: Cleaned Meter Normal [facility] Comment on above: Result Comment: PERF ORMED BY:[address] [place], [place] [phone] MEDICAL DIRECTORJOSEPH GARCIA M.D. Performed By: #### G LULS ####Point of Care testing, Glucose [Mass/Vol] 195 mg/dL Normal [facility] Comment on above: Result Comment: [place] om Glucose Reference Range is dependent on time and content of last meal. Glucose of more than 200 mg/dL in a nonstressed, ambulatory subject supports the diagnosis of Diabetes Mellitus. Performed By: #### G LULS ####Point of Care testing, Commemt1 Glu2: Cleaned Meter Normal [facility] Comment on above: Result Comment: PERF ORMED BY:[address] [place], [place] [phone] MEDICAL DIRECTORJOSEPH GARCIA M.D. Performed By: #### G LULS ####Point of Care testing, Glucose [Mass/Vol] 172 mg/dL Normal [facility] Comment on above: Result Comment: [place] Glucose Reference Range is dependent on time and content of last meal. Glucose of more than 200 mg/dL in a nonstressed, ambulatory subject supports the diagnosis of Diabetes Mellitus. Performed By: #### G LULS ####Point of Care testing, Microcytes LM Ql (Bld)Ordere d By: Geo Thomas on 08-17-2023 Microcytes Ql (Bld) Moderate [facility] Poikilocytosis [Presence] in Blood by Light microscopyOrdered By: Geo Thomas on 08-17-2023 Poikilocytosis LM Ql (Bld) Slight [facility] Scan and CBCon 08-17-2023 Anisocytosis Ql (Bld) Moderate Normal [facility] Comment on above: Performed By: #### S CAN CBC, BMP ####[address] [address] [place] Basophils (Bld) [#/Vol] 0.2 10*3/uL Normal 0.0-0.2 [facility] Comment on above: Performed By: #### S CAN CBC, BMP ####[address] [address] [place] Basophils/100 WBC (Bld) 0.8 % Normal . [facility] Comment on above: Performed By: #### S CAN CBC, BMP ####[address] [address] [place] Eosinophils (Bld) [#/Vol] 0.1 10*3/uL Normal 0.0-0.45 [facility] Comment on above: Performed By: #### S CAN CBC, BMP ####[address] [address] [place] Eosinophils/100 WBC (Bld) 0.7 % Normal . [facility] Comment on above: Performed By: #### S CAN CBC, BMP ####[address] Erythrocyte distribution width (RBC) [Ratio] 17.3 % High 12.0-14.8 [facility] Comment on above: Performed By: #### S CAN CBC, BMP ####[address] Hematocrit (Bld) [Volume fraction] 28.3 % Low 38.8-50.0 [facility] Comment on above: Performed By: #### S CAN CBC, BMP ####[address] Hemoglobin (Bld) [Mass/Vol] 9.7 g/dL Low 13.0-17.0 [facility] Comment on above: Performed By: #### S CAN CBC, BMP ####[address] Lymphocytes (Bld) [#/Vol] 2.1 10*3/uL Normal 1.00-4.8 [facility] Comment on above: Performed By: #### S CAN CBC, BMP ####[address] Lymphocytes/100 WBC (Bld) 9.9 % Normal . [facility] Comment on above: Performed By: #### S CAN CBC, BMP ####[address] MCH (RBC) [Entitic mass] 32.0 pg Normal 27.5-35.2 [facility] Comment on above: Performed By: #### S CAN CBC, BMP ####[address] MCV (RBC) [Entitic vol] 93.4 fL Normal 83.5-101 [facility] Comment on above: Performed By: #### S CAN CBC, BMP ####[address] Mean Corpuscular HGB Conc 34.2 g/dL Normal 32.5-35.6 [facility] Comment on above: Performed By: #### S CAN CBC, BMP ####[address] Microcytosis Moderate Normal [facility] Comment on above: Performed By: #### S CAN CBC, BMP ####[address] Monocytes (Bld) [#/Vol] 2.6 10*3/uL High 0.0-0.8 [facility] Comment on above: Performed By: #### S CAN CBC, BMP ####[address] Monocytes/100 WBC (Bld) 12.4 % Normal . [facility] Comment on above: Performed By: #### S CAN CBC, BMP ####[address] Neutrophils (Bld) [#/Vol] 16.2 10*3/uL High 1.8-7.7 [facility] Comment on above: Performed By: #### S CAN CBC, BMP ####[address] Neutrophils/100 WBC (Bld) 76.2 % Normal . [facility] Comment on above: Performed By: #### S CAN CBC, BMP ####[address] NRBC% 0.0 /100{WBC} Normal 0-0.5 [facility] Comment on above: Performed By: #### S CAN CBC, BMP ####[place] [id number] [facility] Platelet Estimate Increased Normal Normal [facility] Comment on above: Performed By: #### S CAN CBC, BMP ####[address] Platelet mean volume (Bld) [Entitic vol] 7.2 fL Normal 6.6-10.1 [facility] Comment on above: Performed By: #### S CAN CBC, BMP ####[place] [id number] [facility] Platelet Morphology Normal Normal Normal [facility] Comment on above: Result Comment: PERF ORMED BY:[address] [place], [place] [phone] MEDICAL DIRECTORJOSEPH GARCIA M.D. Performed By: #### S CAN CBC, BMP ####[address] Platelets (Bld) [#/Vol] 770 10*3/uL High 150-450 [facility] Comment on above: Performed By: #### S CAN CBC, BMP ####[address] Poikilocytosis Slight Normal [facility] Comment on above: Performed By: #### S CAN CBC, BMP ####[address] Polychromasia Slight Normal [facility] Comment on above: Performed By: #### S CAN CBC, BMP ####[address] RBC (Bld) [#/Vol] 3.03 10*6/uL Low 3.90-5.60 [facility] Comment on above: Performed By: #### S CAN CBC, BMP ####[address] WBC (Bld) [#/Vol] 21.2 10*3/uL High 4.1-10.5 [facility] Comment on above: Performed By: #### S CAN CBC, BMP ####[address] XR abdomen 1Von 08-17-2023 XR abdomen 1V Normal [facility] Arterial Blood Gason 024 ABG Base Excess 4.2 mmol/L High -3.0-3.0 [facility] Comment on above: Performed By: #### A BG ####Point of Care testing, ABG Frac Inspired O2 30 % Normal [facility] Comment on above: Performed By: #### A BG ####Point of Care testing, ABG Oxygen Content 6.3 mmol/L Low 6.6-9.7 [facility] Comment on above: Performed By: #### A BG ####Point of Care testing, ABG Oxygen Saturation 91.5 % Low 95.0-100.0 [facility] Comment on above: Performed By: #### A BG ####Point of Care testing, ABG PCO2 35.5 mm[Hg] Normal 35.0-45.0 [facility] Comment on above: Performed By: #### A BG ####Point of Care testing, ABG PEEP 5 Normal [facility] Comment on above: Performed By: #### A BG ####Point of Care testing, ABG PH 7.50 High 7.35-7.45 [facility] Comment on above: Performed By: #### A BG ####Point of Care testing, ABG PO2 57.5 mm[Hg] Low 80.0-100.0 [facility] Comment on above: Performed By: #### A BG ####Point of Care testing, ABG TV 500 mL Normal [facility] Comment on above: Performed By: #### A BG ####Point of Care testing, CO2 [Moles/Vol] 28.4 mmol/L High 23.0-27.0 [facility] Comment on above: Performed By: #### A BG ####Point of Care testing, HCO3 (Bld) [Moles/Vol] 27.3 mmol/L Normal 23.0-29.0 [facility] Comment on above: Performed By: #### A BG ####Point of Care testing, Respiratory Critical Normal [facility] Comment on above: Result Comment: Crit ical Value called on: 08/16/2023 at 05:56PERFORMED BY:[place] [address] [address] [place], [place] [phone] MEDICAL DIRECTORJOSEPH GARCIA M.D. Performed By: #### A BG ####Point of Care testing, Set Respiratory Rate 14 Normal [facility] Comment on above: Performed By: #### A BG ####Point of Care testing, VBG Draw Site Left Radial Normal [facility] Comment on above: Performed By: #### A BG ####Point of Care testing, Basic Metabolic Panelon 07-25 Anion gap [Moles/Vol] Not performed Normal 6.0-15.0 [facility] Comment on above: Performed By: #### C BC, BMP ####[address] [address] [place] [address] [facility] Calcium [Mass/Vol] 8.3 mg/dL Low 8.6-10.3 [facility] Comment on above: Performed By: #### C BC, BMP ####[address] [address] [facility] Chloride [Moles/Vol] 98 mmol/L Normal 98-107 [facility] Comment on above: Performed By: #### C BC, BMP ####[address] [address] [facility] CO2 [Moles/Vol] 27.2 mmol/L Normal 21.0-31.0 [facility] Comment on above: Performed By: #### C BC, BMP ####[facility] [place] [address] [facility] Creatinine [Mass/Vol] 2.88 mg/dL High 0.70-1.30 [facility] Comment on above: Performed By: #### C BC, BMP ####[place] [place] [address] [place] Creatinine Clr Calc Pharmacy 25.05 Normal [facility] Comment on above: Result Comment: PERF ORMED BY:[address] [place], [place] [phone] MEDICAL DIRECTORJOSEPH GARCIA M.D. Performed By: #### C BC, BMP ####[facility] [address] [address] [facility] GFR/1.73 sq M.predicted MDRD (S/P/Bld) [Vol rate/Area] 22.612 mL/min/{1.73_m2} Normal [facility] Comment on above: Performed By: #### C BC, BMP ####[address] [address] [facility] Glucose [Mass/Vol] 168 mg/dL High 70-100 [facility] Comment on above: Result Comment: [facility][note 3] Glucose Reference Range is dependent on time and content of last meal. Glucose of more than 200 mg/dL in a nonstressed, ambulatory subject supports the diagnosis of Diabetes Mellitus. ADA recommended reference range Performed By: #### C BC, BMP ####[address] [address] [facility] Potassium Normal 3.5-5.1 [facility] Comment on above: Result Comment: Spec imen hemolyzed, redraw requested Results called at 0455 on 08/16/23 Performed By: #### C BC, BMP ####[address] [address] [facility] Sodium [Moles/Vol] 132 mmol/L Low 136-145 [facility] Comment on above: Performed By: #### C BC, BMP ####[address] [address] [facility] Urea nitrogen [Mass/Vol] 44 mg/dL High 7-25 [facility] Comment on above: Performed By: #### C BC, BMP ####[address] [address] [facility] Complete Blood Count Auto Di ffon 08-16-2023 Basophils (Bld) [#/Vol] 0.2 10*3/uL Normal 0.0-0.2 [facility] Comment on above: Result Comment: PERF ORMED BY:[address] [place], [place] [phone] MEDICAL DIRECTORJOSEPH GARCIA M.D. Performed By: #### C BC, BMP ####[address] Basophils/100 WBC (Bld) 0.7 % Normal . [facility] Comment on above: Performed By: #### C BC, BMP ####[address] Eosinophils (Bld) [#/Vol] 0.1 10*3/uL Normal 0.0-0.45 [facility] Comment on above: Performed By: #### C BC, BMP ####[address] Eosinophils/100 WBC (Bld) 0.3 % Normal . [facility] Comment on above: Performed By: #### C HIGINIO, BMP ####[address] Erythrocyte distribution width (RBC) [Ratio] 17.3 % High 12.0-14.8 [facility] Comment on above: Performed By: #### C HIGINIO, BMP ####[address] Hematocrit (Bld) [Volume fraction] 30.8 % Low 38.8-50.0 [facility] Comment on above: Performed By: #### C HIGINIO, BMP ####[address] Hemoglobin (Bld) [Mass/Vol] 10.2 g/dL Low 13.0-17.0 [facility] Comment on above: Performed By: #### C BC, BMP ####[address] Lymphocytes (Bld) [#/Vol] 2.1 10*3/uL Normal 1.00-4.8 [facility] Comment on above: Performed By: #### C BC, BMP ####[address] Lymphocytes/100 WBC (Bld) 9.5 % Normal . [facility] Comment on above: Performed By: #### C BC, BMP ####[address] MCH (RBC) [Entitic mass] 28.8 pg Normal 27.5-35.2 [facility] Comment on above: Performed By: #### C BC, BMP ####[address] MCV (RBC) [Entitic vol] 87.2 fL Normal 83.5-101 [facility] Comment on above: Performed By: #### C BC, BMP ####[address] Mean Corpuscular HGB Conc 33.1 g/dL Normal 32.5-35.6 [facility] Comment on above: Performed By: #### C BC, BMP ####[address] Monocytes # (Auto) Normal 0.0-0.8 [facility] Comment on above: Result Comment: Abso lute monocytosis is commonly reactive in nature. However, if unexplained, recommend follow-up CBC in 3 months to evaluate for persistence. Performed By: #### C BC, BMP ####[address] Monocytes/100 WBC (Bld) 12.8 % Normal . [facility] Comment on above: Performed By: #### C BC, BMP ####[address] Neutrophils (Bld) [#/Vol] 16.8 10*3/uL High 1.8-7.7 [facility] Comment on above: Performed By: #### C BC, BMP ####[place] [id number] [facility] Neutrophils/100 WBC (Bld) 76.7 % Normal . [facility] Comment on above: Performed By: #### C BC, BMP ####[address] NRBC% 0.1 /100{WBC} Normal 0-0.5 [facility] Comment on above: Performed By: #### C BC, BMP ####[facility] [place] [address] [facility] Platelet mean volume (Bld) [Entitic vol] 7.1 fL Normal 6.6-10.1 [facility] Comment on above: Performed By: #### C BC, BMP ####[address] [place] [address] [facility] Platelets (Bld) [#/Vol] 833 10*3/uL High 150-450 [facility] Comment on above: Performed By: #### C HIGINIO, BMP ####[address] [address] [facility] RBC (Bld) [#/Vol] 3.53 10*6/uL Low 3.90-5.60 [facility] Comment on above: Performed By: #### C HIGINIO, BMP ####[address] [address] [facility] WBC (Bld) [#/Vol] 21.9 10*3/uL High 4.1-10.5 [facility] Comment on above: Performed By: #### C HIGINIO, BMP ####[address] [address] [facility] Glucose Poct Glucometerson 0 08-16-2023 Glucose [Mass/Vol] 182 mg/dL Normal [facility] Comment on above: Result Comment: [facility][note 3] Glucose Reference Range is dependent on time and content of last meal. Glucose of more than 200 mg/dL in a nonstressed, ambulatory subject supports the diagnosis of Diabetes Mellitus.PERFORMED BY:[address] [place], [place] [phone] MEDICAL DIRECTORJOSEPH GARCIA M.D. Performed By: #### G VALERY ####Point of Care testing, Glucose [Mass/Vol] 208 mg/dL Normal [facility] Comment on above: Result Comment: [facility][note 3] Glucose Reference Range is dependent on time and content of last meal. Glucose of more than 200 mg/dL in a nonstressed, ambulatory subject supports the diagnosis of Diabetes Mellitus.PERFORMED BY:[address] [address] [address] [place], [place] [phone] MEDICAL DIRECTORJOSEPH GARCIA M.D. Performed By: #### G VALERY ####Point of Care testing, Redraw Potassiumon Potassium [Moles/Vol] 3.8 mmol/L Normal 3.5-5.1 [facility] Comment on above: Result Comment: PERF ORMED BY:[address] [address] [address], [place] [phone] MEDICAL DIRECTORJOSEPH GARCIA M.D. Performed By: #### R HOLA Tinajero ####[address] [address] [facility] Basic Metabolic Panelon 07-25 Anion gap [Moles/Vol] 12.6 mmol/L Normal 6.0-15.0 [facility] Comment on above: Performed By: #### D IFF CBC, BMP ####[place] [id number] [facility] Calcium [Mass/Vol] 8.0 mg/dL Low 8.6-10.3 [facility] Comment on above: Performed By: #### D IFF CBC, BMP ####[place] [id number] [facility] Chloride [Moles/Vol] 96 mmol/L Low 98-107 [facility] Comment on above: Performed By: #### D IFF CBC, BMP ####[address] [address] [facility] CO2 [Moles/Vol] 25.7 mmol/L Normal 21.0-31.0 [facility] Comment on above: Performed By: #### D IFF CBC, BMP ####[address] [address] [facility] Creatinine [Mass/Vol] 3.22 mg/dL High 0.70-1.30 [facility] Comment on above: Performed By: #### D IFF CBC, BMP ####[address] [address] [place] [address] [facility] Creatinine Clr Calc Pharmacy 22.49 Normal [facility] Comment on above: Result Comment: PERF ORMED BY:[address] [place], [place] [phone] MEDICAL SILVIA GARCIA M.D. Performed By: #### D IFF CBC, BMP ####[place] [id number] [facility] GFR/1.73 sq M.predicted MDRD (S/P/Bld) [Vol rate/Area] 19.778 mL/min/{1.73_m2} Normal [facility] Comment on above: Performed By: #### D IFF CBC, BMP ####[id number] [place] [id number] [facility] Glucose [Mass/Vol] 192 mg/dL High 70-100 [facility] Comment on above: Result Comment: [place] Glucose Reference Range is dependent on time and content of last meal. Glucose of more than 200 mg/dL in a nonstressed, ambulatory subject supports the diagnosis of Diabetes Mellitus. ADA recommended reference range Performed By: #### D IFF CBC, BMP ####[place] [id number] [facility] Potassium [Moles/Vol] 3.3 mmol/L Low 3.5-5.1 [facility] Comment on above: Performed By: #### D IFF CBC, BMP ####[place] [id number] [facility] Sodium [Moles/Vol] 131 mmol/L Low 136-145 [facility] Comment on above: Performed By: #### D IFF CBC, BMP ####[place] [id number] [facility] Urea nitrogen [Mass/Vol] 52 mg/dL High 7-25 [facility] Comment on above: Performed By: #### D IFF CBC, BMP ####[place] [id number] [place] Demetrio cells [Presence] in Blo od by Light microscopyOrdered By: Geo Thomas on 08-15-2023 Demetrio cells LM Ql (Bld) Slight Fi [facility] Diff and CBCon 08-15-2023 Anisocytosis Ql (Bld) Slight Normal [facility] Comment on above: Performed By: #### D IFF CBC, BMP ####[address] [place] [address] [facility] Crenated RBC Slight Normal The [facility] Comment on above: Performed By: #### D IFF CBC, BMP ####[address] [place] [address] [facility] Erythrocyte distribution width (RBC) [Ratio] 17.6 % High 12.0-14.8 [facility] Comment on above: Performed By: #### D IFF CBC, BMP ####[address] [address] [facility] Hematocrit (Bld) [Volume fraction] 29.9 % Low 38.8-50.0 [facility] Comment on above: Performed By: #### D IFF CBC, BMP ####[address] [address] [facility] Hemoglobin (Bld) [Mass/Vol] 9.8 g/dL Low 13.0-17.0 [facility] Comment on above: Performed By: #### D IFF CBC, BMP ####[place] [id number] [facility] MCH (RBC) [Entitic mass] 29.3 pg Normal 27.5-35.2 [facility] Comment on above: Performed By: #### D IFF CBC, BMP ####[address] [address] [facility] MCV (RBC) [Entitic vol] 89.2 fL Normal 83.5-101 [facility] Comment on above: Performed By: #### D IFF CBC, BMP ####[address] [address] [facility] Mean Corpuscular HGB Conc 32.8 g/dL Normal 32.5-35.6 [facility] Comment on above: Performed By: #### D IFF CBC, BMP ####[address] [address] [facility] Myelocytes 1 % High 0-0 [facility] Comment on above: Performed By: #### D IFF CBC, BMP ####[address] [place] [address] [facility] Platelet Estimate Increased Normal Normal The [facility] Comment on above: Performed By: #### D IFF CBC, BMP ####[address] [address] [facility] Platelet mean volume (Bld) [Entitic vol] 7.0 fL Normal 6.6-10.1 [facility] Comment on above: Result Comment: PERF ORMED BY:[place] [address] [address] LOYATracyLUZ [place], [place] [phone] MEDICAL DIRECTORJOSEPH GARCIA M.D. Performed By: #### D IFF CBC, BMP ####[address] [address] [facility] Platelet Morphology Normal Normal Normal The [facility] Comment on above: Result Comment: PERF ORMED BY:[address] [place], [place] [phone] MEDICAL DIRECTORJOSEPH GARCIA M.D. Performed By: #### D IFF CBC, BMP ####[address] [address] [facility] Platelets (Bld) [#/Vol] 746 10*3/uL High 150-450 [facility] Comment on above: Performed By: #### D IFF CBC, BMP ####[address] [address] [facility] Poikilocytosis Slight Normal The [facility] Comment on above: Performed By: #### D IFF CBC, BMP ####[address] [place] [address] [facility] Polychromasia Slight Normal The [facility] Comment on above: Performed By: #### D IFF CBC, BMP ####[address] [place] [address] [facility] RBC (Bld) [#/Vol] 3.35 10*6/uL Low 3.90-5.60 [facility] Comment on above: Performed By: #### D IFF CBC, BMP ####[address] [address] [facility] WBC (Bld) [#/Vol] 18.7 10*3/uL High 4.1-10.5 [facility] Comment on above: Performed By: #### D IFF CBC, BMP ####[place] [id number] [facility] Eosinophils/100 leukocytes i n Blood by Manual countOrdered By: Geo Thomas on 08-15-2023 Eosinophils/100 WBC (Bld) 2 % Normal 1-3 [facility] Comment on above: Performed By: #### D IFF CBC, BMP ####[address] [address] [facility] Glucose Poct Glucometerson 0 08-15-2023 Glucose [Mass/Vol] 217 mg/dL Normal [facility] Comment on above: Result Comment: [facility][note 3] Glucose Reference Range is dependent on time and content of last meal. Glucose of more than 200 mg/dL in a nonstressed, ambulatory subject supports the diagnosis of Diabetes Mellitus.PERFORMED BY:[address] [address] [address] [place]UÑ[place], [place] [phone] MEDICAL DIRECTORJOSEPH GARCIA M.D. Performed By: #### G LULS ####Point of Care testing, Commemt1 Glu2: Cleaned Meter Normal [facility] Comment on above: Result Comment: PERF ORMED BY:[address] [address] [address] [place]AMANLUZ [place], [place] [phone] MEDICAL DIRECTORJOSEPH GARCIA M.D. Performed By: #### G LULS ####Point of Care testing, Glucose [Mass/Vol] 213 mg/dL Normal [facility] Comment on above: Result Comment: [place] om Glucose Reference Range is dependent on time and content of last meal. Glucose of more than 200 mg/dL in a nonstressed, ambulatory subject supports the diagnosis of Diabetes Mellitus. Performed By: #### G LULS ####Point of Care testing, Glucose [Mass/Vol] 219 mg/dL Normal [facility] Comment on above: Result Comment: [place] om Glucose Reference Range is dependent on time and content of last meal. Glucose of more than 200 mg/dL in a nonstressed, ambulatory subject supports the diagnosis of Diabetes Mellitus.PERFORMED BY:[address] [address] [address] ZAMANLUZ [place], [place] [phone] MEDICAL DIRECTORJOSEPH GARCIA M.D. Performed By: #### G LULS ####Point of Care testing, Commemt1 Glu2: Cleaned Meter Normal [facility] Comment on above: Result Comment: PERF ORMED BY:[address] [address] [address] [place], [place] [phone] MEDICAL DIRECTORJOSEPH GARCIA M.D. Performed By: #### G LULS ####Point of Care testing, Glucose [Mass/Vol] 220 mg/dL Normal [facility] Comment on above: Result Comment: [place] om Glucose Reference Range is dependent on time and content of last meal. Glucose of more than 200 mg/dL in a nonstressed, ambulatory subject supports the diagnosis of Diabetes Mellitus. Performed By: #### G LULS ####Point of Care testing, Lymphocytes/100 leukocytes i n Blood by Manual countOrdered By: Geo Thomas on 08-15-2023 Lymphocytes/100 WBC (Bld) 5 % Low 18-42 [facility] Comment on above: Performed By: #### D IFF CBC, BMP ####[facility] [id number] [place] [address] [facility] Manual blood segmented neutr ophils/100 leukocytesOrdered By: Geo Thomas on 08-15-2023 Segmented neutrophils/100 WBC (Bld) 83 % High 50-70 [facility] Comment on above: Performed By: #### D IFF CBC, BMP ####[address] [place] [address] [facility] Monocytes/100 leukocytes in Blood by Manual countOrdered By: Geo Thomas on 08-15-2023 Monocytes/100 WBC (Bld) 9 % Normal 2-11 [facility] Comment on above: Performed By: #### D IFF CBC, BMP ####[address] [address] [place] Myelocytes/100 WBC Manual cn t (Bld)Ordered By: Geo Thomas on 08-15-2023 Myelocytes/100 WBC (Bld) 1 % 0-0 [facility] Basic Metabolic Panelon 07-25 Anion gap [Moles/Vol] 11.8 mmol/L Normal 6.0-15.0 [facility] Comment on above: Performed By: #### C BC, BMP ####[place] [id number] [facility] Calcium [Mass/Vol] 8.1 mg/dL Low 8.6-10.3 [facility] Comment on above: Performed By: #### C BC, BMP ####[place] [id number] [facility] Chloride [Moles/Vol] 94 mmol/L Low 98-107 [facility] Comment on above: Performed By: #### C BC, BMP ####[place] [id number] [facility] CO2 [Moles/Vol] 28.3 mmol/L Normal 21.0-31.0 [facility] Comment on above: Performed By: #### C BC, BMP ####[place] [id number] [facility] Creatinine [Mass/Vol] 3.25 mg/dL Significan t change up 0.70-1.30 [facility] Comment on above: Performed By: #### C BC, BMP ####[address] [address] [facility] Creatinine Clr Calc Pharmacy 22.52 Normal [facility] Comment on above: Result Comment: PERF ORMED BY:[place] [address] [address] [address] [place]UÑ[place]DA[place], [place] [phone] MEDICAL DIRECTORJOSEPH GARCIA M.D. Performed By: #### C BC, BMP ####[address] [address] [facility] GFR/1.73 sq M.predicted MDRD (S/P/Bld) [Vol rate/Area] 19.560 mL/min/{1.73_m2} Normal [facility] Comment on above: Performed By: #### C BC, BMP ####[address] [address] [facility] Glucose [Mass/Vol] 148 mg/dL High 70-100 [facility] Comment on above: Result Comment: [place] Glucose Reference Range is dependent on time and content of last meal. Glucose of more than 200 mg/dL in a nonstressed, ambulatory subject supports the diagnosis of Diabetes Mellitus. ADA recommended reference range Performed By: #### C BC, BMP ####[address] [address] [facility] Potassium [Moles/Vol] 3.1 mmol/L Low 3.5-5.1 [facility] Comment on above: Performed By: #### C , BMP ####[address] [address] [facility] Sodium [Moles/Vol] 131 mmol/L Low 136-145 [facility] Comment on above: Performed By: #### C BC, BMP ####[address] [address] [facility] Urea nitrogen [Mass/Vol] 34 mg/dL Significant change up 7-25 [facility] Comment on above: Performed By: #### C BC, BMP ####[address] [address] [facility] Complete Blood Count Auto Di ffon 08-14-2023 Basophils (Bld) [#/Vol] 0.1 10*3/uL Normal 0.0-0.2 [facility] Comment on above: Result Comment: PERF ORMED BY:[address] [place], [place] [phone] MEDICAL DIRECTORJOSEPH GARCIA M.D. Performed By: #### C BC, BMP ####[place] [id number] [facility] Basophils/100 WBC (Bld) 0.4 % Normal . [facility] Comment on above: Performed By: #### C BC, BMP ####[address] Eosinophils (Bld) [#/Vol] 0.1 10*3/uL Normal 0.0-0.45 [facility] Comment on above: Performed By: #### C HIGINIO, BMP ####[address] Eosinophils/100 WBC (Bld) 0.5 % Normal . [facility] Comment on above: Performed By: #### C HIGINIO, BMP ####[address] Erythrocyte distribution width (RBC) [Ratio] 17.5 % High 12.0-14.8 [facility] Comment on above: Performed By: #### C HIGINIO, BMP ####[address] Hematocrit (Bld) [Volume fraction] 28.9 % Low 38.8-50.0 [facility] Comment on above: Performed By: #### C BC, BMP ####[address] Hemoglobin (Bld) [Mass/Vol] 9.5 g/dL Low 13.0-17.0 [facility] Comment on above: Performed By: #### C BC, BMP ####[address] Lymphocytes (Bld) [#/Vol] 1.2 10*3/uL Normal 1.00-4.8 [facility] Comment on above: Performed By: #### C HIGINIO, BMP ####[place] [id number] [facility] Lymphocytes/100 WBC (Bld) 5.7 % Normal . [facility] Comment on above: Performed By: #### C BC, BMP ####[place] [id number] [facility] MCH (RBC) [Entitic mass] 29.1 pg Normal 27.5-35.2 [facility] Comment on above: Performed By: #### C BC, BMP ####[place] [id number] [facility] MCV (RBC) [Entitic vol] 88.9 fL Normal 83.5-101 [facility] Comment on above: Performed By: #### C BC, BMP ####[address] Mean Corpuscular HGB Conc 32.7 g/dL Normal 32.5-35.6 [facility] Comment on above: Performed By: #### C BC, BMP ####[address] Monocytes (Bld) [#/Vol] 3.0 10*3/uL High 0.0-0.8 [facility] Comment on above: Performed By: #### C BC, BMP ####[place] [id number] [facility] Monocytes/100 WBC (Bld) 14.1 % Normal . [facility] Comment on above: Result Comment: Abso lute monocytosis is commonly reactive in nature. However, if unexplained, recommend follow-up CBC in 3 months to evaluate for persistence. Performed By: #### C BC, BMP ####[place] [id number] [facility] Neutrophils (Bld) [#/Vol] 16.7 10*3/uL High 1.8-7.7 [facility] Comment on above: Performed By: #### C BC, BMP ####[place] [id number] [facility] Neutrophils/100 WBC (Bld) 79.3 % Normal . [facility] Comment on above: Performed By: #### C BC, BMP ####[place] [id number] [facility] NRBC% 0.0 /100{WBC} Normal 0-0.5 [facility] Comment on above: Performed By: #### C BC, BMP ####[place] [id number] [facility] Platelet mean volume (Bld) [Entitic vol] 7.2 fL Normal 6.6-10.1 [facility] Comment on above: Performed By: #### C HIGINIO, BMP ####[place] [id number] [facility] Platelets (Bld) [#/Vol] 705 10*3/uL High 150-450 [facility] Comment on above: Performed By: #### C HIGINIO, BMP ####[place] [id number] [facility] RBC (Bld) [#/Vol] 3.25 10*6/uL Low 3.90-5.60 [facility] Comment on above: Performed By: #### C HIGINIO, BMP ####[place] [id number] [facility] WBC (Bld) [#/Vol] 21.1 10*3/uL High 4.1-10.5 [facility] Comment on above: Performed By: #### C HIGINIO, BMP ####[place] [id number] [facility] Glucose Poct Glucometerson 0 3- Glucose [Mass/Vol] 203 mg/dL Normal [facility] Comment on above: Result Comment: [place] Glucose Reference Range is dependent on time and content of last meal. Glucose of more than 200 mg/dL in a nonstressed, ambulatory subject supports the diagnosis of Diabetes Mellitus.PERFORMED BY:[address] [place], [place] [phone] MEDICAL DIRECTORJOSEPH GARCIA M.D. Performed By: #### G LULS ####Point of Care testing, Glucose [Mass/Vol] 232 mg/dL Normal [facility] Comment on above: Result Comment: [place] om Glucose Reference Range is dependent on time and content of last meal. Glucose of more than 200 mg/dL in a nonstressed, ambulatory subject supports the diagnosis of Diabetes Mellitus.PERFORMED BY:[address] [place], [place] [phone] MEDICAL DIRECTORJOSEPH GARCIA M.D. Performed By: #### G LULS ####Point of Care testing, Commemt1 Glu2: Cleaned Meter Normal [facility] Comment on above: Result Comment: PERF ORMED BY:[address] [place], [place] [phone] MEDICAL DIRECTORJOSEPH GARCIA M.D. Performed By: #### G LULS ####Point of Care testing, Glucose [Mass/Vol] 148 mg/dL Normal [facility] Comment on above: Result Comment: [place] om Glucose Reference Range is dependent on time and content of last meal. Glucose of more than 200 mg/dL in a nonstressed, ambulatory subject supports the diagnosis of Diabetes Mellitus. Performed By: #### G LULS ####Point of Care testing, Commemt1 Glu2: Cleaned Meter Normal [facility] Comment on above: Result Comment: PERF ORMED BY:[address] SHALINITracyLUZ [place], [place] [phone] MEDICAL SILVIA GARCIA M.D. Performed By: #### G LULS ####Point of Care testing, Glucose [Mass/Vol] 255 mg/dL Normal [facility] Comment on above: Result Comment: [place] om Glucose Reference Range is dependent on time and content of last meal. Glucose of more than 200 mg/dL in a nonstressed, ambulatory subject supports the diagnosis of Diabetes Mellitus. Performed By: #### G LULS ####Point of Care testing, XR chest 1V portableon 08-13 XR chest 1V portable Normal [facility] Aerobic Cultureon 08-13-2023 Aerobic Culture Normal [facility] Comment on above: Performed By: #### A COLLIN, ####[facility] [address] [place] [address] [facility] Arterial Blood Gason 024 ABG Base Excess 1.3 mmol/L Normal -3.0-3.0 [facility] Comment on above: Performed By: #### A BG ####Point of Care testing, ABG Frac Inspired O2 50% Normal [facility] Comment on above: Performed By: #### A BG ####Point of Care testing, ABG Oxygen Content 6.2 mmol/L Low 6.6-9.7 [facility] Comment on above: Performed By: #### A BG ####Point of Care testing, ABG Oxygen Saturation 94.0 % Low 95.0-100.0 [facility] Comment on above: Performed By: #### A BG ####Point of Care testing, ABG PCO2 40.4 mm[Hg] Normal 35.0-45.0 [facility] Comment on above: Performed By: #### A BG ####Point of Care testing, ABG PH 7.42 Normal 7.35-7.45 [facility] Comment on above: Performed By: #### A BG ####Point of Care testing, ABG PO2 71.0 mm[Hg] Low 80.0-100.0 [facility] Comment on above: Performed By: #### A BG ####Point of Care testing, ABG Pressure Support 7.0 Normal [facility] Comment on above: Performed By: #### A BG ####Point of Care testing, CO2 [Moles/Vol] 27.0 mmol/L Normal 23.0-27.0 [facility] Comment on above: Performed By: #### A BG ####Point of Care testing, CPAP 5.0 Normal [facility] Comment on above: Performed By: #### A BG ####Point of Care testing, HCO3 (Bld) [Moles/Vol] 25.8 mmol/L Normal 23.0-29.0 [facility] Comment on above: Performed By: #### A BG ####Point of Care testing, Respiratory Critical Normal [facility] Comment on above: Result Comment: Crit ical Value called on: 08/13/2023 at 15:48PERFORMED BY:[facility], [place] [phone] MEDICAL DIRECTORJOSEPH GARCIA M.D. Performed By: #### A BG ####Point of Care testing, VBG Draw Site Right Radial Normal [facility] Comment on above: Performed By: #### A BG ####Point of Care testing, ABG Base Excess -2.7 mmol/L Normal -3.0-3.0 [facility] Comment on above: Performed By: #### A BG ####Point of Care testing, ABG Frac Inspired O2 50 % Normal [facility] Comment on above: Performed By: #### A BG ####Point of Care testing, ABG Oxygen Content 5.7 mmol/L Low 6.6-9.7 [facility] Comment on above: Performed By: #### A BG ####Point of Care testing, ABG Oxygen Saturation 93.1 % Low 95.0-100.0 [facility] Comment on above: Performed By: #### A BG ####Point of Care testing, ABG PCO2 39.7 mm[Hg] Normal 35.0-45.0 [facility] Comment on above: Performed By: #### A BG ####Point of Care testing, ABG PEEP 5 Normal [facility] Comment on above: Performed By: #### A BG ####Point of Care testing, ABG PH 7.37 Normal 7.35-7.45 [facility] Comment on above: Performed By: #### A BG ####Point of Care testing, ABG PO2 70.7 mm[Hg] Low 80.0-100.0 [facility] Comment on above: Performed By: #### A BG ####Point of Care testing, ABG TV 500 mL Normal [facility] Comment on above: Performed By: #### A BG ####Point of Care testing, CO2 [Moles/Vol] 23.6 mmol/L Normal 23.0-27.0 [facility] Comment on above: Performed By: #### A BG ####Point of Care testing, HCO3 (Bld) [Moles/Vol] 22.4 mmol/L Low 23.0-29.0 [facility] Comment on above: Performed By: #### A BG ####Point of Care testing, Respiratory Critical Normal [facility] Comment on above: Result Comment: Crit ical Value called on: 08/13/2023 at 05:08PERFORMED BY:[address] [place], [place] [phone] MEDICAL DIRECTORJOSEPH GARCIA M.D. Performed By: #### A BG ####Point of Care testing, Set Respiratory Rate 14 Normal [facility] Comment on above: Performed By: #### A BG ####Point of Care testing, VBG Draw Site Right Radial Normal [facility] Comment on above: Performed By: #### A BG ####Point of Care testing, Ventilator Mode AC Normal [facility] Comment on above: Performed By: #### A BG ####Point of Care testing, Basic Metabolic Panelon 07-25 Anion gap [Moles/Vol] 18.7 mmol/L High 6.0-15.0 [facility] Comment on above: Performed By: #### C BC, BMP ####[facility] [place] [address] [facility] Calcium [Mass/Vol] 8.0 mg/dL Low 8.6-10.3 [facility] Comment on above: Performed By: #### C BC, BMP ####[facility] [place] [address] [facility] Chloride [Moles/Vol] 92 mmol/L Low 98-107 [facility] Comment on above: Performed By: #### C BC, BMP ####[address] [address] [facility] CO2 [Moles/Vol] 23.7 mmol/L Normal 21.0-31.0 [facility] Comment on above: Performed By: #### C BC, BMP ####[address] [address] [facility] Creatinine [Mass/Vol] 4.61 mg/dL Significan t change up 0.70-1.30 [facility] Comment on above: Performed By: #### C BC, BMP ####[address] [address] [place] Creatinine Clr Calc Pharmacy 15.87 Normal [facility] Comment on above: Result Comment: PERF ORMED BY:[address] [place]acyLUZ [place], [place] [phone] MEDICAL DIRECTORJOSEPH GARCIA M.D. Performed By: #### C BC, BMP ####[place] [id number] [facility] GFR/1.73 sq M.predicted MDRD (S/P/Bld) [Vol rate/Area] 12.858 mL/min/{1.73_m2} Normal [facility] Comment on above: Performed By: #### C BC, BMP ####[address] [address] [facility] Glucose [Mass/Vol] 181 mg/dL High 70-100 [facility] Comment on above: Result Comment: [place] Glucose Reference Range is dependent on time and content of last meal. Glucose of more than 200 mg/dL in a nonstressed, ambulatory subject supports the diagnosis of Diabetes Mellitus. ADA recommended reference range Performed By: #### C BC, BMP ####[address] [address] [facility] Potassium [Moles/Vol] 4.4 mmol/L Normal 3.5-5.1 [facility] Comment on above: Performed By: #### C BC, BMP ####[address] [address] [facility] Sodium [Moles/Vol] 130 mmol/L Low 136-145 [facility] Comment on above: Performed By: #### C HIGINIO, BMP ####[address] Urea nitrogen [Mass/Vol] 66 mg/dL High 7-25 [facility] Comment on above: Performed By: #### C HIGINIO, BMP ####[address] Complete Blood Count Auto Di ffon 08-13-2023 Basophils (Bld) [#/Vol] 0.1 10*3/uL Normal 0.0-0.2 [facility] Comment on above: Result Comment: PERF ORMED BY:[address] [place], [place] [phone] MEDICAL DIRECTORJOSEPH GARCIA M.D. Performed By: #### C HIGINIO, BMP ####[address] Basophils/100 WBC (Bld) 0.3 % Normal . [facility] Comment on above: Performed By: #### C HIGINIO, BMP ####[address] Eosinophils (Bld) [#/Vol] 0.0 10*3/uL Normal 0.0-0.45 [facility] Comment on above: Performed By: #### C HIGINIO, BMP ####[address] Eosinophils/100 WBC (Bld) 0.1 % Normal . [facility] Comment on above: Performed By: #### C HIGINIO, BMP ####[address] Erythrocyte distribution width (RBC) [Ratio] 17.3 % High 12.0-14.8 [facility] Comment on above: Performed By: #### C BC, BMP ####[address] Hematocrit (Bld) [Volume fraction] 28.4 % Low 38.8-50.0 [facility] Comment on above: Performed By: #### C BC, BMP ####[address] Hemoglobin (Bld) [Mass/Vol] 9.4 g/dL Low 13.0-17.0 [facility] Comment on above: Performed By: #### C HIGINIO, BMP ####[address] Lymphocytes (Bld) [#/Vol] 1.1 10*3/uL Normal 1.00-4.8 [facility] Comment on above: Performed By: #### C HIGINIO, BMP ####[address] Lymphocytes/100 WBC (Bld) 3.3 % Normal . [facility] Comment on above: Performed By: #### C HIGINIO, BMP ####[address] MCH (RBC) [Entitic mass] 29.8 pg Normal 27.5-35.2 [facility] Comment on above: Performed By: #### C HIGINIO, BMP ####[address] MCV (RBC) [Entitic vol] 90.4 fL Normal 83.5-101 [facility] Comment on above: Performed By: #### C HIGINIO, BMP ####[address] Mean Corpuscular HGB Conc 32.9 g/dL Normal 32.5-35.6 [facility] Comment on above: Performed By: #### C HIGINIO, BMP ####[address] Monocytes (Bld) [#/Vol] 3.2 10*3/uL High 0.0-0.8 [facility] Comment on above: Performed By: #### C HIGINIO, BMP ####[address] Monocytes/100 WBC (Bld) 9.5 % Normal . [facility] Comment on above: Performed By: #### C HIGINIO, BMP ####[place] [id number] [facility] Neutrophils (Bld) [#/Vol] 28.9 10*3/uL High 1.8-7.7 [facility] Comment on above: Performed By: #### C HIGINIO, BMP ####[place] [id number] [facility] Neutrophils/100 WBC (Bld) 86.8 % Normal . [facility] Comment on above: Performed By: #### C HIGINIO, BMP ####[address] NRBC% 0.0 /100{WBC} Normal 0-0.5 [facility] Comment on above: Performed By: #### C HIGINIO, BMP ####[address] Platelet mean volume (Bld) [Entitic vol] 7.0 fL Normal 6.6-10.1 [facility] Comment on above: Performed By: #### C HIGINIO, BMP ####[place] [id number] [facility] Platelets (Bld) [#/Vol] 652 10*3/uL High 150-450 [facility] Comment on above: Performed By: #### C HIGINIO, BMP ####[place] [id number] [facility] RBC (Bld) [#/Vol] 3.14 10*6/uL Low 3.90-5.60 [facility] Comment on above: Performed By: #### C HIGINIO, BMP ####[place] [id number] [facility] WBC (Bld) [#/Vol] 33.4 10*3/uL High 4.1-10.5 [facility] Comment on above: Performed By: #### C HIGINIO, BMP ####[address] [address] [facility] Continuous positive airway p ressure (CPAP)Ordered By: Geo Thomas on 08-13-2023 Continuous positive airway pressure Respiratory system 5.0 cmH2O [facility] Glucose Poct Glucometerson 0 08-13-2023 Glucose [Mass/Vol] 210 mg/dL Normal [facility] Comment on above: Result Comment: [place] om Glucose Reference Range is dependent on time and content of last meal. Glucose of more than 200 mg/dL in a nonstressed, ambulatory subject supports the diagnosis of Diabetes Mellitus.PERFORMED BY:[place] [address] [address] [place], [place] [phone] MEDICAL DIRECTORJOSEPH GARCIA M.D. Performed By: #### G LULS ####Point of Care testing, Glucose [Mass/Vol] 125 mg/dL Normal [facility] Comment on above: Result Comment: [place] Glucose Reference Range is dependent on time and content of last meal. Glucose of more than 200 mg/dL in a nonstressed, ambulatory subject supports the diagnosis of Diabetes Mellitus.PERFORMED BY:[address]YAT[address] [place], [place] [phone] MEDICAL DIRECTORJOSEPH GARCIA M.D. Performed By: #### G LULS ####Point of Care testing, Glucose [Mass/Vol] 209 mg/dL Normal [facility] Comment on above: Result Comment: [facility][note 3] Glucose Reference Range is dependent on time and content of last meal. Glucose of more than 200 mg/dL in a nonstressed, ambulatory subject supports the diagnosis of Diabetes Mellitus.PERFORMED BY:[address] [address] [address] [place]UÑ[place]DA[place], [place] [phone] MEDICAL DIRECTORJOSEPH GARCIA M.D. Performed By: #### G LULS ####Point of Care testing, Gram Stainon 08-13-2023 Microscopic observation Gram stain Nom (Unsp spec) Gram Stain Result 2+ White Blood Cells 2+ Epithelial Cells No Bacteria Seen PERFORMED BY: [facility] [address] [place] [address] PATHOLOGIST MARKETING SALES SUPERVISOR JOSEPH GARCIA M.D. Normal [facility] Comment on above: Performed By: #### A ERC GS ####[facility] [place] [id number] [facility] Gram stain for investigation of transfusion reactionOrdered By: Morales Mckeon on 08-13-2023 Microscopic observation Gram stain Nom (Unsp spec) 2 Days [facility] No Panel InformationOrdered By: Geo Thomas on 08-13-2023 Blood Gas Pressure Support 7.0 cmH2O [facility] 7.0 cmH2O [facility] Activated partial thrombopla stin time (aPTT) in platelet poor plasma by coagulation aOrdered By: Geo Thomas on 08-12-2023 aPTT Coag (PPP) [Time] 27.6 s 25.1-36.5 [facility] Comment on above: A hematocrit value g reater than 55% may lead to inaccurate results in coagulation testing. Patients having hematocrit values >55% require a special collection tube for coagulation studies. Please contact the laboratory at [phone] for redraw instructions. Aerobic Cultureon 08-12-2023 Aerobic Culture Normal [facility] Comment on above: Performed By: #### G S, AERC ####[facility] [address] [place] [address] [facility] Arterial Blood Gason 024 ABG Base Excess -2.6 mmol/L Normal -3.0-3.0 [facility] Comment on above: Performed By: #### A BG ####Point of Care testing, ABG Frac Inspired O2 50 % Normal [facility] Comment on above: Performed By: #### A BG ####Point of Care testing, ABG Oxygen Content 5.7 mmol/L Low 6.6-9.7 [facility] Comment on above: Performed By: #### A BG ####Point of Care testing, ABG Oxygen Saturation 89.9 % Low 95.0-100.0 [facility] Comment on above: Performed By: #### A BG ####Point of Care testing, ABG PCO2 71.8 mm[Hg] Off scale high 35.0-45.0 [facility] Comment on above: Performed By: #### A BG ####Point of Care testing, ABG PEEP 5 Normal [facility] Comment on above: Performed By: #### A BG ####Point of Care testing, ABG PH 7.19 Off scale low 7.35-7.45 [facility] Comment on above: Performed By: #### A BG ####Point of Care testing, ABG PO2 71.6 mm[Hg] Low 80.0-100.0 [facility] Comment on above: Performed By: #### A BG ####Point of Care testing, ABG TV 500 mL Normal [facility] Comment on above: Performed By: #### A BG ####Point of Care testing, CO2 [Moles/Vol] 28.7 mmol/L High 23.0-27.0 [facility] Comment on above: Performed By: #### A BG ####Point of Care testing, HCO3 (Bld) [Moles/Vol] 26.5 mmol/L Normal 23.0-29.0 [facility] Comment on above: Performed By: #### A BG ####Point of Care testing, Respiratory Critical Normal [facility] Comment on above: Result Comment: Crit ical Value called on: 08/12/2023 at 18:08PERFORMED BY:[facility] [place], [place] [phone] MEDICAL DIRECTORJOSEPH GARCIA M.D. Performed By: #### A BG ####Point of Care testing, Set Respiratory Rate 14 Normal [facility] Comment on above: Performed By: #### A BG ####Point of Care testing, VBG Draw Site Right Brachial Normal [facility] Comment on above: Performed By: #### A BG ####Point of Care testing, Ventilator Mode AC Normal [facility] Comment on above: Performed By: #### A BG ####Point of Care testing, ABG Base Excess -0.9 mmol/L Normal -3.0-3.0 [facility] Comment on above: Performed By: #### A BG ####Point of Care testing, ABG Frac Inspired O2 40 % Normal [facility] Comment on above: Performed By: #### A BG ####Point of Care testing, ABG Oxygen Content 6.2 mmol/L Low 6.6-9.7 [facility] Comment on above: Performed By: #### A BG ####Point of Care testing, ABG Oxygen Saturation 88.9 % Low 95.0-100.0 [facility] Comment on above: Performed By: #### A BG ####Point of Care testing, ABG PCO2 31.3 mm[Hg] Low 35.0-45.0 [facility] Comment on above: Performed By: #### A BG ####Point of Care testing, ABG PEEP 5 Normal [facility] Comment on above: Performed By: #### A BG ####Point of Care testing, ABG PH 7.47 High 7.35-7.45 [facility] Comment on above: Performed By: #### A BG ####Point of Care testing, ABG PO2 55.4 mm[Hg] Low 80.0-100.0 [facility] Comment on above: Performed By: #### A BG ####Point of Care testing, ABG TV 500 mL Normal [facility] Comment on above: Performed By: #### A BG ####Point of Care testing, CO2 [Moles/Vol] 23.1 mmol/L Normal 23.0-27.0 [facility] Comment on above: Performed By: #### A BG ####Point of Care testing, HCO3 (Bld) [Moles/Vol] 22.2 mmol/L Low 23.0-29.0 [facility] Comment on above: Performed By: #### A BG ####Point of Care testing, Respiratory Critical Normal [facility] Comment on above: Result Comment: Crit ical Value called on: 08/12/2023 at 04:47PERFORMED BY:[address] [place], [place] [phone] MEDICAL DIRECTORJOSEPH GARCIA M.D. Performed By: #### A BG ####Point of Care testing, Set Respiratory Rate 14 Normal [facility] Comment on above: Performed By: #### A BG ####Point of Care testing, VBG Draw Site Right Radial Normal [facility] Comment on above: Performed By: #### A BG ####Point of Care testing, Ventilator Mode AC Normal [facility] Comment on above: Performed By: #### A BG ####Point of Care testing, Basic Metabolic Panelon 07-24 Anion gap [Moles/Vol] 20.3 mmol/L High 6.0-15.[address] [facility] Comment on above: Performed By: #### B MP, DIFF CBC, BHOB ####[place] [id number] [facility] Calcium [Mass/Vol] 7.7 mg/dL Low 8.6-10.3 [facility] Comment on above: Performed By: #### B MP, DIFF CBC, BHOB ####[place] [id number] [facility] Chloride [Moles/Vol] 90 mmol/L Low 98-107 [facility] Comment on above: Performed By: #### B MP, DIFF CBC, BHOB ####[place] [id number] [facility] CO2 [Moles/Vol] 22.2 mmol/L Normal 21.0-31.0 [facility] Comment on above: Performed By: #### B MP, DIFF CBC, BHOB ####[place] [id number] [facility] Creatinine [Mass/Vol] 3.80 mg/dL High 0.70-1.30 [facility] Comment on above: Performed By: #### B MP, DIFF CBC, BHOB ####[address] [place] [address] [facility] Creatinine Clr Calc Pharmacy 19.66 Normal [facility] Comment on above: Result Comment: PERF ORMED BY:[address] [place], [place] [phone] MEDICAL DIRECTORJOSEPH GARCIA M.D. Performed By: #### B MP, DIFF CBC, BHOB ####[place] [id number] [facility] GFR/1.73 sq M.predicted MDRD (S/P/Bld) [Vol rate/Area] 16.213 mL/min/{1.73_m2} Normal [facility] Comment on above: Performed By: #### B MP, DIFF CBC, BHOB ####[address] Glucose [Mass/Vol] 256 mg/dL High 70-100 [facility] Comment on above: Result Comment: [place] Glucose Reference Range is dependent on time and content of last meal. Glucose of more than 200 mg/dL in a nonstressed, ambulatory subject supports the diagnosis of Diabetes Mellitus. ADA recommended reference range Performed By: #### B MP, DIFF CBC, BHOB ####[address] Potassium [Moles/Vol] 4.5 mmol/L Normal 3.5-5.1 [facility] Comment on above: Performed By: #### B MP, DIFF CBC, BHOB ####[address] Sodium [Moles/Vol] 128 mmol/L Low 136-145 [facility] Comment on above: Performed By: #### B MP, DIFF CBC, BHOB ####[place] [id number] [facility] Urea nitrogen [Mass/Vol] 51 mg/dL High 7-25 [facility] Comment on above: Performed By: #### B MP, DIFF CBC, BHOB ####[place] [id number] [place] Beta Hydroxybuterateon 08-11 Beta Hydroxybuterate 1.50 mmol/L High 0.02-0.27 [facility] Comment on above: Result Comment: PERF ORMED BY:[address] [address] [address] [place], [place] [phone] MEDICAL DIRECTORJOSEPH GARCIA M.D. Performed By: #### B MP, DIFF CBC, BHOB ####[address] [address] [place] Beta hydroxybutyrate [Moles/ volume] in Serum or PlasmaOrdered By: Rancho Kay on 08-12-2023 Beta hydroxybutyrate [Moles/Vol] 1.50 mmol/L 0.02-0.27 [facility] BioFire Not Detectedon 08-11 BioFire Not Detected Not detected Normal Not Detecte [facility] Comment on above: Result Comment: This is a duplicate RP2.1 COVID (PCR) result to be used for statistical tracking purpose only.PERFORMED BY:[address] [address] [address] [place], [place] [phone] MEDICAL SILVIA GARCIA M.D. Performed By: #### B IOFIRECOVNOTDE, RESP PANEL UPP. ####[address] [address] [place] C reactive protein [Mass/vol ume] in Serum or PlasmaOrdered By: Morales Mckeon on 08-12-2023 CRP [Mass/Vol] 28.1 mg/dL 0.0-0.5 [facility] C-Reactive Proteinon 024 C-Reactive Protein 28.1 mg/dL High 0.0-0.5 [facility] Comment on above: Result Comment: PERF ORMED BY:[address] [address] [address] [place], [place] [phone] MEDICAL SILVIA GARCIA M.D. Performed By: #### P ROCALCITONIN ####[facility] ,#### CRP ####[address] [place] [address] [facility] COVID-19 Detected/Not Detect edOrdered By: Morales Mckeon on 08-12-2023 SARS-CoV-2 (COVID-19) RNA JONES+non-probe Ql (Nph) Not detected Not Detecte [facility] Comment on above: This is a duplicate RP2.1 COVID (PCR) result to be used for statistical tracking purpose only. CT abdomen pelvis wo conon 0 08-12-2023 CT abdomen pelvis wo con Normal [facility] CT foot LT wo conon 08-12-19 CT foot LT wo con Normal [facility] Diff and CBCon 08-12-2023 Anisocytosis Ql (Bld) Slight Normal [facility] Comment on above: Performed By: #### B MP, DIFF CBC, BHOB ####[address] Erythrocyte distribution width (RBC) [Ratio] 17.9 % High 12.0-14.8 [facility] Comment on above: Performed By: #### B MP, DIFF CBC, BHOB ####[address] Hematocrit (Bld) [Volume fraction] 30.9 % Low 38.8-50.0 [facility] Comment on above: Performed By: #### B MP, DIFF CBC, BHOB ####[address] Hemoglobin (Bld) [Mass/Vol] 10.2 g/dL Low 13.0-17.0 [facility] Comment on above: Performed By: #### B MP, DIFF CBC, BHOB ####[address] Lymphocytes/100 WBC (Bld) 1 % Low 18-42 [facility] Comment on above: Performed By: #### B MP, DIFF CBC, BHOB ####[place] [id number] [facility] MCH (RBC) [Entitic mass] 30.0 pg Normal 27.5-35.2 [facility] Comment on above: Performed By: #### B MP, DIFF CBC, BHOB ####[address] MCV (RBC) [Entitic vol] 90.5 fL Normal 83.5-101 [facility] Comment on above: Performed By: #### B MP, DIFF CBC, BHOB ####[address] Mean Corpuscular HGB Conc 33.1 g/dL Normal 32.5-35.6 [facility] Comment on above: Performed By: #### B MP, DIFF CBC, BHOB ####[address] Metamyelocytes 1 % High 0-0 [facility] Comment on above: Performed By: #### B MP, DIFF CBC, BHOB ####[address] Microcytosis Slight Normal [facility] Comment on above: Performed By: #### B MP, DIFF CBC, BHOB ####[address] Monocytes/100 WBC (Bld) 8 % Normal 2-11 [facility] Comment on above: Performed By: #### B MP, DIFF CBC, BHOB ####[address] Myelocytes 1 % High 0-0 [facility] Comment on above: Performed By: #### B MP, DIFF CBC, BHOB ####[address] Platelet Estimate Increased Normal Normal [facility] Comment on above: Performed By: #### B MP, DIFF CBC, BHOB ####[address] Platelet mean volume (Bld) [Entitic vol] 7.1 fL Normal 6.6-10.1 [facility] Comment on above: Result Comment: PERF ORMED BY:[address] [address] [address] [place], [place] [phone] MEDICAL DIRECTORJOSEPH GARCIA M.D. Performed By: #### B MP, DIFF CBC, BHOB ####[place] [id number] [facility] Platelet Morphology Normal Normal Normal [facility] Comment on above: Result Comment: PERF ORMED BY:[address] [place], [place] [phone] MEDICAL DIRECTORJOSEPH GARCIA M.D. Performed By: #### B MP, DIFF CBC, BHOB ####[address] Platelets (Bld) [#/Vol] 677 10*3/uL High 150-450 [facility] Comment on above: Performed By: #### B MP, DIFF CBC, BHOB ####[address] Polychromasia Moderate Normal [facility] Comment on above: Performed By: #### B MP, DIFF CBC, BHOB ####[address] RBC (Bld) [#/Vol] 3.41 10*6/uL Low 3.90-5.60 [facility] Comment on above: Performed By: #### B MP, DIFF CBC, BHOB ####[address] RBC morphology finding Nom (Bld) Normal Normal Normal [facility] Comment on above: Performed By: #### B MP, DIFF CBC, BHOB ####[place] [id number] [facility] Segmented neutrophils/100 WBC (Bld) 90 % High 50-70 [facility] Comment on above: Performed By: #### B MP, DIFF CBC, BHOB ####[address] Spherocytes Slight Normal [facility] Physician Group Comment on above: Performed By: #### B MP, DIFF CBC, BHOB ####[facility] [place] [address] [facility] WBC (Bld) [#/Vol] 40.8 10*3/uL High 4.1-10.5 [facility] Comment on above: Performed By: #### B MP, DIFF CBC, BHOB ####[facility] [place] [address] [facility] ECG 12 lead ECGon 08-12-2023 ECG 12 lead ECG Normal [facility] Glucose Poct Glucometerson 0 08-12-2023 Commemt1 Glu2: Cleaned Meter Normal [facility] Comment on above: Result Comment: PERF ORMED BY:[address] [place], [place] [phone] MEDICAL DIRECTORJOSEPH GARCIA M.D. Performed By: #### G LULS ####Point of Care testing, Glucose [Mass/Vol] 215 mg/dL Normal The [facility] Comment on above: Result Comment: [place] om Glucose Reference Range is dependent on time and content of last meal. Glucose of more than 200 mg/dL in a nonstressed, ambulatory subject supports the diagnosis of Diabetes Mellitus. Performed By: #### G LULS ####Point of Care testing, Glucose [Mass/Vol] 213 mg/dL Normal [facility] Comment on above: Result Comment: [place] om Glucose Reference Range is dependent on time and content of last meal. Glucose of more than 200 mg/dL in a nonstressed, ambulatory subject supports the diagnosis of Diabetes Mellitus.PERFORMED BY:[address]LU[address] [place], [place] [phone] MEDICAL DIRECTORJOSEPH GARCIA M.D. Performed By: #### G LULS ####Point of Care testing, Glucose [Mass/Vol] 353 mg/dL Normal [facility] Comment on above: Result Comment: [place] Glucose Reference Range is dependent on time and content of last meal. Glucose of more than 200 mg/dL in a nonstressed, ambulatory subject supports the diagnosis of Diabetes Mellitus.PERFORMED BY:[address] [place], [place] [phone] MEDICAL DIRECTORJOSEPH GARCIA M.D. Performed By: #### G LULS ####Point of Care testing, Commemt1 Glu2: Cleaned Meter Normal [facility] Comment on above: Result Comment: PERF ORMED BY:[address] [place], [place] [phone] MEDICAL DIRECTORJOSEPH GARCIA M.D. Performed By: #### G LULS ####Point of Care testing, Glucose [Mass/Vol] 282 mg/dL Normal [facility] Comment on above: Result Comment: [facility][note 3] Glucose Reference Range is dependent on time and content of last meal. Glucose of more than 200 mg/dL in a nonstressed, ambulatory subject supports the diagnosis of Diabetes Mellitus. Performed By: #### G LULS ####Point of Care testing, Gram Stainon 08-12-2023 Microscopic observation Gram stain Nom (Unsp spec) Gram Stain Result 3+ White Blood Cells Rare Epithelial Cells Rare Gram Positive Cocci PERFORMED BY: [facility] [address] [place] [address] PATHOLOGIST MARKETING SALES SUPERVISOR JOSEPH GARCIA M.D. Normal [facility] Comment on above: Performed By: #### G S, AERC ####[facility] [address] [place] [address] [facility] Gram stain for investigation of transfusion reactionOrdered By: Morales Mckeon on 08-12-2023 Microscopic observation Gram stain Nom (Unsp spec) Asperigillus fumigatus [facility] INR in Platelet poor plasma by Coagulation assayOrdered By: Geo Thomas on 08-12-2023 INR Coag (PPP) [Relative time] 1.2 {INR} Normal [facility] Comment on above: INR Therapeutic Rang [...] with mechanical heart valves: 3 - 4.5 Result Comment: INR Therapeutic Range A) Pre- [...] 3 - 4.5 Performed By: #### P T, PTT ####[facility] [address] [place] [address] [facility] Metamyelocytes/100 WBC Manua l cnt (Bld)Ordered By: Geo Thomas on 08-12-2023 Metamyelocytes/100 WBC (Bld) 1 % 0-0 [facility] Microscopic observation Gram stain Nom (Unsp spec)Ordered By: Morales Mckeon on 08-12-2023 Gram stain for investigation of transfusion reaction Fungal like structure [facility] Gram stain for investigation of transfusion reaction Asperigillus fumigatus [facility] Partial Thromboplastin Timeo n 08-12-2023 aPTT Coag (Bld) [Time] 27.6 s Normal 25.1-36.5 [facility] Comment on above: Result Comment: A he matocrit value greater than 55% may lead to inaccurate results in coagulation testing. Patients having hematocrit values >55% require a special collection tube for coagulation studies. Please contact the laboratory at [phone] for redraw instructions.PERFORMED BY:[facility] [place], [place] [phone] MEDICAL DIRECTORJOSEPH GARCIA M.D. Performed By: #### P T, PTT ####[facility] [place] [address] [facility] Procalcitoninon 08-12-2023 Procalcitonin 1.73 ng/mL High 0.00-0.08 [facility] Comment on above: Result Comment: A pr ocalcitonin (PCT) level above 2.0 ng/mL on the first day of ICU admission is associated with a high risk for progression to severe sepsis and/or septic shock. A PCT level below 0.5 ng/mL on the first day of ICU admission is associated with a low risk for progression to severe sepsis and/or septic shock. Note: Concentrations <0.5 ng/mL do not exclude an infection, on account of localized infections (without systemic signs) which can be associated with such low concentrations, or a systemic infection in its initial stages (<6 hours). Furthermore, increased procalcitonin can occur without infection. PCT concentrations between 0.5 and 2.0 ng/mL should be interpreted taking into account the patient's history. It is recommended to retest PCT within 6-24 hours if any concentrations <2 ng/mL are obtained. Performed at: [facility] [facility] [id number] [employer] Record Supervisor: Sj Petersen MD, Phone: [phone] BY:[address] [phone] MEDICAL DIRECTORJOSEPH GARCIA M.D. Performed By: #### P ROCALCITONIN ####[facility] ,#### CRP ####[facility] [place] [address] [facility] Procalcitonin 1.66 ng/mL High 0.00-0.08 [facility] Comment on above: Result Comment: A pr ocalcitonin (PCT) level above 2.0 ng/mL on the first day of ICU admission is associated with a high risk for progression to severe sepsis and/or septic shock. A PCT level below 0.5 ng/mL on the first day of ICU admission is associated with a low risk for progression to severe sepsis and/or septic shock. Note: Concentrations <0.5 ng/mL do not exclude an infection, on account of localized infections (without systemic signs) which can be associated with such low concentrations, or a systemic infection in its initial stages (<6 hours). Furthermore, increased procalcitonin can occur without infection. PCT concentrations between 0.5 and 2.0 ng/mL should be interpreted taking into account the patient's history. It is recommended to retest PCT within 6-24 hours if any concentrations <2 ng/mL are obtained. Performed at: [facility] [address] [id number] [employer] Record Supervisor: Sj Petersen MD, Phone: [phone] BY:[facility]111[facility]ITAL[facility]ILY NUÑ[place]DAVEN[place], [place] [phone] MEDICAL DIRECTORJOSEPH GARCIA M.D. Performed By: #### P ROCALCITONIN ####[facility] , Prothrombin time (PT)Ordered By: Geo Thomas on 08-12-2023 PT Coag (PPP) [Time] 13.6 s High 9.0-12.9 [facility] Comment on above: A hematocrit value g reater than 55% may lead to inaccurate results in coagulation testing. Patients having hematocrit values >55% require a special collection tube for coagulation studies. Please contact the laboratory at [phone] for redraw instructions. Result Comment: A he matocrit value greater than 55% may lead to inaccurate results in coagulation testing. Patients having hematocrit values >55% require a special collection tube for coagulation studies. Please contact the laboratory at [phone] for redraw instructions. Performed By: #### P T, PTT ####[facility] [address] [place] [address] [place] Respiratory (Upper) Panel, P CRon 08-12-2023 Respiratory (Upper) Panel, PCR Normal [facility] Comment on above: Performed By: #### B IOFIRECOVNOTDE, RESP PANEL UPP. ####[address] [address] [facility] Respiratory pathogens DNA an d RNA panel - Nasopharynx by JONES with non-probe detectionOrdered By: Morales Mckeon on 08-12-2023 Respiratory pathogens DNA and RNA panel JONES+non-probe (Nph) [facility] Serum procalcitonin measurem entOrdered By: Morales Mckeon on 08-12-2023 Procalcitonin [Mass/Vol] 1.73 ng/mL 0.00-0.08 [facility] Comment on above: A procalcitonin (PCT ) level above 2.0 ng/mL on the firstday of ICU admission is associated with a high risk forprogression to severe sepsis and/or septic shock.A PCT level below 0.5 ng/mL on the first day of ICUadmission is associated with a low risk for progressionto severe sepsis and/or septic shock.Note: Concentrations <0.5 ng/mL do not exclude aninfection, on account of localized infections (withoutsystemic signs) which can be associated with such lowconcentrations, or a systemic infection in its initialstages (<6 hours).Furthermore, increased procalcitonin can occur withoutinfection. PCT concentrations between 0.5 and 2.0 ng/mLshould be interpreted taking into account the patient'shistory. It is recommended to retest PCT within 6-24 hoursif any concentrations <2 ng/mL are obtained.Performed at: [address] [id number] Director: Sj Petersen MD, Phone: [phone] Spherocytes [Presence] in Bl ood by Light microscopyOrdered By: Geo Thomas on 08-12-2023 Spherocytes LM Ql (Bld) Slight [facility] XR abdomen 1Von 08-12-2023 XR abdomen 1V Normal [facility] XR chest 1V portableon 08-11 XR chest 1V portable Normal [facility] Arterial Blood Gason 024 ABG Base Excess -2.6 mmol/L Normal -3.0-3.0 [facility] Comment on above: Performed By: #### A BG ####Point of Care testing, ABG Frac Inspired O2 40 % Normal [facility] Comment on above: Performed By: #### A BG ####Point of Care testing, ABG Oxygen Content 6.6 mmol/L Normal 6.6-9.7 [facility] Comment on above: Performed By: #### A BG ####Point of Care testing, ABG Oxygen Saturation 93.8 % Low 95.0-100.0 [facility] Comment on above: Performed By: #### A BG ####Point of Care testing, ABG PCO2 30.0 mm[Hg] Low 35.0-45.0 [facility] Comment on above: Performed By: #### A BG ####Point of Care testing, ABG PEEP 5 Normal [facility] Comment on above: Performed By: #### A BG ####Point of Care testing, ABG PH 7.45 Normal 7.35-7.45 [facility] Comment on above: Performed By: #### A BG ####Point of Care testing, ABG PO2 70.8 mm[Hg] Low 80.0-100.0 [facility] Comment on above: Performed By: #### A BG ####Point of Care testing, ABG TV 500 mL Normal [facility] Comment on above: Performed By: #### A BG ####Point of Care testing, CO2 [Moles/Vol] 21.4 mmol/L Low 23.0-27.0 [facility] Comment on above: Performed By: #### A BG ####Point of Care testing, HCO3 (Bld) [Moles/Vol] 20.5 mmol/L Low 23.0-29.0 [facility] Comment on above: Performed By: #### A BG ####Point of Care testing, Respiratory Critical Normal [facility] Comment on above: Result Comment: Crit ical Value called on: 08/11/2023 at 05:15PERFORMED BY:[facility] [place], [place] [phone] MEDICAL DIRECTORJOSEPH GARCIA M.D. Performed By: #### A BG ####Point of Care testing, Set Respiratory Rate 14 Normal [facility] Comment on above: Performed By: #### A BG ####Point of Care testing, VBG Draw Site Left Radial Normal [facility] Comment on above: Performed By: #### A BG ####Point of Care testing, Ventilator Mode AC Normal [facility] Comment on above: Performed By: #### A BG ####Point of Care testing, Bacteria identified Cx Nom ( U)Ordered By: Geo Thomas on 08-11-2023 Urine culture routine Rajiv glabrata [facility] Bacterial blood cultureOrder ed By: Rancho Kay on 08-11-2023 Bacteria identified Cx Nom (Bld) NO GROWTH 5 DAYS [facility] Bacteria identified Cx Nom (Bld) NO GROWTH 5 DAYS [facility] Basic Metabolic Panelon 07-24 Anion gap [Moles/Vol] 17.9 mmol/L High 6.0-15.0 [facility] Comment on above: Performed By: #### B MP, DIFF CBC ####[address] [address] [facility] Calcium [Mass/Vol] 7.7 mg/dL Low 8.6-10.3 [facility] Comment on above: Performed By: #### B MP, DIFF CBC ####[address] [place] [address] [place] Chloride [Moles/Vol] 89 mmol/L Low 98-107 [facility] Comment on above: Performed By: #### B MP, DIFF CBC ####[address] [address] [place] CO2 [Moles/Vol] 22.9 mmol/L Normal 21.0-31.0 [facility] Comment on above: Performed By: #### B MP, DIFF CBC ####[place] [place] [address] [place] Creatinine [Mass/Vol] 3.83 mg/dL High 0.70-1.30 [facility] Comment on above: Performed By: #### B MP, DIFF CBC ####[address] [address] [place] Creatinine Clr Calc Pharmacy 19.44 Normal [facility] Comment on above: Result Comment: PERF ORMED BY:[address] [place], [place] [phone] MEDICAL DIRECTORJOSEPH GARCIA M.D. Performed By: #### B MP, DIFF CBC ####[address] [address] [place] GFR/1.73 sq M.predicted MDRD (S/P/Bld) [Vol rate/Area] 16.061 mL/min/{1.73_m2} Normal [facility] Comment on above: Performed By: #### B MP, DIFF CBC ####[address] Glucose [Mass/Vol] 158 mg/dL High 70-100 [facility] Comment on above: Result Comment: [place] Glucose Reference Range is dependent on time and content of last meal. Glucose of more than 200 mg/dL in a nonstressed, ambulatory subject supports the diagnosis of Diabetes Mellitus. ADA recommended reference range Performed By: #### B MP, DIFF CBC ####[address] Potassium [Moles/Vol] 4.8 mmol/L Normal 3.5-5.1 [facility] Comment on above: Performed By: #### B MP, DIFF CBC ####[address] Sodium [Moles/Vol] 125 mmol/L Low 136-145 [facility] Comment on above: Performed By: #### B MP, DIFF CBC ####[address] Urea nitrogen [Mass/Vol] 70 mg/dL High 7-25 [facility] Comment on above: Performed By: #### B MP, DIFF CBC ####[place] [id number] [facility] Basophils/100 leukocytes in Blood by Manual countOrdered By: Geo Thomas on 08-11-2023 Basophils/100 WBC (Bld) 0 % Normal 0-2 [facility] Comment on above: Performed By: #### B MP, DIFF CBC ####[place] [id number] [facility] Blood Cultureon 08-11-2023 Bacteria identified Cx Nom (Bld) NO GROWTH 5 DAYS PERFORMED BY: [facility] [address] [place] [address] PATHOLOGIST MARKETING SALES SUPERVISOR JOSEPH GARCIA M.D. Normal [facility] Comment on above: Performed By: #### C UBLD ####[address] Bacteria identified Cx Nom (Bld) NO GROWTH 5 DAYS PERFORMED BY: [facility] [address] [place] [address] PATHOLOGIST MARKETING SALES SUPERVISOR JOSEPH GARCIA M.D. Normal [facility] Comment on above: Performed By: #### C UBLD ####[address] Diff and CBCon 08-11-2023 Anisocytosis Ql (Bld) Slight Normal [facility] Comment on above: Performed By: #### B MP, DIFF CBC ####[address] Eosinophils/100 WBC (Bld) 0 % Low 1-3 [facility] Comment on above: Performed By: #### B MP, DIFF CBC ####[address] Erythrocyte distribution width (RBC) [Ratio] 17.5 % High 12.0-14.8 [facility] Comment on above: Performed By: #### B MP, DIFF CBC ####[address] Hematocrit (Bld) [Volume fraction] 30.8 % Low 38.8-50.0 [facility] Comment on above: Performed By: #### B MP, DIFF CBC ####[place] [id number] [facility] Hemoglobin (Bld) [Mass/Vol] 10.2 g/dL Low 13.0-17.0 [facility] Comment on above: Performed By: #### B MP, DIFF CBC ####[place] [id number] [facility] Large Platelets Slight Normal [facility] Comment on above: Result Comment: PERF ORMED BY:[address] [place], [place] [phone] MEDICAL DIRECTORJOSEPH GARCIA M.D. Performed By: #### B MP, DIFF CBC ####[address] Lymphocytes/100 WBC (Bld) 6 % Low 18-42 [facility] Comment on above: Performed By: #### B MP, DIFF CBC ####[address] MCH (RBC) [Entitic mass] 29.8 pg Normal 27.5-35.2 [facility] Comment on above: Performed By: #### B MP, DIFF CBC ####[address] MCV (RBC) [Entitic vol] 89.8 fL Normal 83.5-101 [facility] Comment on above: Performed By: #### B MP, DIFF CBC ####[address] Mean Corpuscular HGB Conc 33.2 g/dL Normal 32.5-35.6 [facility] Comment on above: Performed By: #### B MP, DIFF CBC ####[address] Metamyelocytes 3 % High 0-0 [facility] Comment on above: Performed By: #### B MP, DIFF CBC ####[address] Monocytes/100 WBC (Bld) 12 % High 2-11 [facility] Comment on above: Performed By: #### B MP, DIFF CBC ####[address] Myelocytes 1 % High 0-0 [facility] Comment on above: Performed By: #### B MP, DIFF CBC ####[address] Ovalocytes Slight Normal [facility] Comment on above: Performed By: #### B MP, DIFF CBC ####[place] [id number] [facility] Platelet Estimate Increased Normal Normal [facility] Comment on above: Performed By: #### B MP, DIFF CBC ####[place] [id number] [facility] Platelet mean volume (Bld) [Entitic vol] 7.2 fL Normal 6.6-10.1 [facility] Comment on above: Result Comment: PERF ORMED BY:[address]amikoTracyLUZ [place], [place] [phone] MEDICAL DIRECTORJOSEPH GARCIA M.D. Performed By: #### B MP, DIFF CBC ####[place] [id number] [facility] Platelets (Bld) [#/Vol] 655 10*3/uL High 150-450 [facility] Comment on above: Performed By: #### B MP, DIFF CBC ####[place] [id number] [facility] Poikilocytosis Slight Normal [facility] Comment on above: Performed By: #### B MP, DIFF CBC ####[address] RBC (Bld) [#/Vol] 3.43 10*6/uL Low 3.90-5.60 [facility] Comment on above: Performed By: #### B MP, DIFF CBC ####[address] Schistocytes Slight Normal [facility] Comment on above: Performed By: #### B MP, DIFF CBC ####[place] [id number] [facility] Segmented neutrophils/100 WBC (Bld) 78 % High 50-70 [facility] Comment on above: Performed By: #### B MP, DIFF CBC ####[place] [id number] [facility] WBC (Bld) [#/Vol] 22.5 10*3/uL High 4.1-10.5 [facility] Comment on above: Performed By: #### B MP, DIFF CBC ####[address] [address] [facility] Dipstick and Microscopicon 0 08-11-2023 Appearance (U) Turbid Critically abnormal Clear [facility] Comment on above: Order Comment: Name Collection Type:: Santana Catheter Performed By: #### A DDONUAPLUS, CUU ####[address] [address] [facility] Bacteria,Urine 1+ High None Seen [facility] Comment on above: Order Comment: Name Collection Type:: Santana Catheter Performed By: #### A DDONUAPLUS, CUU ####[address] [address] [facility] Bilirubin,Urine 2+ High Negative [facility] Comment on above: Order Comment: Name Collection Type:: Santana Catheter Performed By: #### A DDONUAPLUS, CUU ####[address] [address] [facility] Color (U) Dark Yellow Critically abnormal Yellow [facility] Comment on above: Order Comment: Name Collection Type:: Santana Catheter Performed By: #### A DDONUAPLUS, CUU ####[address] [address] [facility] Glucose Ql (U) Normal Normal Normal [facility] Comment on above: Order Comment: Name Collection Type:: Santana Catheter Performed By: #### A DDONUAPLUS, CUU ####[address] [address] [facility] Hyaline Casts,Urine Rare Normal 0-1 [facility] Comment on above: Order Comment: Name Collection Type:: Santaan Catheter Performed By: #### A DDONUAPLUS, CUU ####[address] [address] [facility] Ketones Ql (U) Trace High Negative [facility] Comment on above: Order Comment: Name Collection Type:: Santana Catheter Performed By: #### A DDONUAPLUS, CUU ####[facility] [place] [address] [facility] Leukocyte esterase Test strip Ql (U) 3+ High Negative [facility] Comment on above: Order Comment: Name Collection Type:: Santana Catheter Performed By: #### A DDONUAPLUS, CUU ####[address] [place] [address] [facility] Nitrite,Urine Negative Normal Negative [facility] Comment on above: Order Comment: Name Collection Type:: Santana Catheter Performed By: #### A DDONUAPLUS, CUU ####[address] [place] [address] [facility] Occult Blood,Urine 1+ High Negative [facility] Comment on above: Order Comment: Name Collection Type:: Santana Catheter Result Comment: PERF ORMED BY:[address] [place], [place] [phone] MEDICAL DIRECTORJOSEPH GARCIA M.D. Performed By: #### A DDONUAPLUS, CUU ####[address] [place] [address] [facility] Other Casts,Urine None Seen Normal None Seen [facility] Comment on above: Order Comment: Name Collection Type:: Santana Catheter Performed By: #### A DDONUAPLUS, CUU ####[address] [place] [address] [facility] [facility] pH (U) 5.0 [pH] Normal 5.0-9.0 [facility] Comment on above: Order Comment: Name Collection Type:: Santana Catheter Performed By: #### A DDONUAPLUS, CUU ####[address] [address] [facility] Protein (U) [Mass/Vol] 300 mg/dL High Negative [facility] Comment on above: Order Comment: Name Collection Type:: Santana Catheter Performed By: #### A DDONUAPLUS, CUU ####[address] [address] [facility] RBC,Urine 3-4 Normal 0-4 [facility] Comment on above: Order Comment: Name Collection Type:: Santana Catheter Performed By: #### A DDONUAPLUS, CUU ####[address] [address] [facility] Renal Epithelial Cells,Urine None Seen Normal 0-1 [facility] Comment on above: Order Comment: Name Collection Type:: Santana Catheter Performed By: #### A DDONUAPLUS, CUU ####[address] [address] [facility] Specificy [place],Urine 1.027 Normal 1.001-1.030 [facility] Comment on above: Order Comment: Name Collection Type:: Santana Catheter Performed By: #### A DDONUAPLUS, CUU ####[address] [address] [facility] Squamous Epithelial Cell,Urine 3-4 High 0-2 [facility] Comment on above: Order Comment: Name Collection Type:: Santana Catheter Performed By: #### A DDONUAPLUS, CUU ####[address] [address] [facility] Urobilinogen,Urine Normal Normal Normal [facility] Comment on above: Order Comment: Name Collection Type:: Santana Catheter Performed By: #### A DDONUAPLUS, CUU ####[address] [address] [facility] WBC,Urine 50-100 High 0-4 [facility] Comment on above: Order Comment: Name Collection Type:: Santana Catheter Performed By: #### A DDONUAPLUS, CUU ####[address] [address] [facility] Yeast,Urine 3+ Critically abnormal None Seen [facility] Comment on above: Order Comment: Name Collection Type:: Santana Catheter Result Comment: BUDD ING YEASTPERFORMED BY:[address] [place], [place] [phone] MEDICAL DIRECTORJOSEPH GARCIA M.D. Performed By: #### A DDONUAPLUS, CUU ####[address] [place] [address] [facility] ECG 12 lead ECGon 08-11-2023 ECG 12 lead ECG Normal [facility] Glucose Poct Glucometerson 0 08-11-2023 Glucose [Mass/Vol] 177 mg/dL Normal [facility] Comment on above: Result Comment: [place] Glucose Reference Range is dependent on time and content of last meal. Glucose of more than 200 mg/dL in a nonstressed, ambulatory subject supports the diagnosis of Diabetes Mellitus.PERFORMED BY:[address] [place], [place] [phone] MEDICAL DIRECTORJOSEPH GARCIA M.D. Performed By: #### G LULS ####Point of Care testing, Glucose [Mass/Vol] 159 mg/dL Normal [facility] Comment on above: Result Comment: [place] Glucose Reference Range is dependent on time and content of last meal. Glucose of more than 200 mg/dL in a nonstressed, ambulatory subject supports the diagnosis of Diabetes Mellitus.PERFORMED BY:[address]Ñ[place]ZDA[place], [place] [phone] MEDICAL DIRECTORJOSEPH GARCIA M.D. Performed By: #### G LULS ####Point of Care testing, Commemt1 Glu2: Cleaned Meter Normal [facility] Comment on above: Result Comment: PERF ORMED BY:[address]Ñ[place], [place] [phone] MEDICAL DIRECTORJOSEPH GARCIA M.D. Performed By: #### G LULS ####Point of Care testing, Glucose [Mass/Vol] 160 mg/dL Normal [facility] Comment on above: Result Comment: [place] om Glucose Reference Range is dependent on time and content of last meal. Glucose of more than 200 mg/dL in a nonstressed, ambulatory subject supports the diagnosis of Diabetes Mellitus. Performed By: #### G LULS ####Point of Care testing, Ovalocyte detectionOrdered B y: Geo Thomas on 08-11-2023 Ovalocytes LM Ql (Bld) Slight [facility] Platelets Large [Presence] i n Blood by Light microscopyOrdered By: Geo Thomas on 08-11-2023 Platelets Large LM Ql (Bld) Slight [facility] Schistocytes [Presence] in B lood by Light microscopyOrdered By: Geo Thomas on 08-11-2023 Schistocytes LM Ql (Bld) Slight [facility] Urine Cultureon 08-11-2023 Bacteria identified Cx Nom (U) ORGANISM: Rajiv glabrata (O:CANGLA) [place] Count >100,000 PERFORMED BY: [facility] [address] [place] [address] PATHOLOGIST MARKETING SALES SUPERVISOR JOSEPH GARCIA M.D. Normal [facility] Comment on above: Performed By: #### A DDONUAJAS, CUU ####[facility] Urine culture routineOrdered By: Geo Thomas on 08-11-2023 Bacteria identified Cx Nom (U) Rajiv glabrata [facility] Urine sediment renal epithel ial cell count by microscopy (number/high power field)Ordered By: Geo Thomas on 08-11-2023 Epithelial cells.renal LM.HPF (Urine sed) [#/Area] None seen [HPF] 0-1 [facility] XR chest 1V portableon 08-10 XR chest 1V portable Normal [facility] Arterial Blood Gason 024 ABG Base Excess -4.7 mmol/L Low -3.0-3.0 [facility] Comment on above: Performed By: #### A BG ####Point of Care testing, ABG Frac Inspired O2 60 % Normal [facility] Comment on above: Performed By: #### A BG ####Point of Care testing, ABG Oxygen Content 6.9 mmol/L Normal 6.6-9.7 [facility] Comment on above: Performed By: #### A BG ####Point of Care testing, ABG Oxygen Saturation 94.4 % Low 95.0-100.0 [facility] Comment on above: Performed By: #### A BG ####Point of Care testing, ABG PCO2 35.0 mm[Hg] Normal 35.0-45.0 [facility] Comment on above: Performed By: #### A BG ####Point of Care testing, ABG PEEP 5 Normal [facility] Comment on above: Performed By: #### A BG ####Point of Care testing, ABG PH 7.37 Normal 7.35-7.45 [facility] Comment on above: Performed By: #### A BG ####Point of Care testing, ABG PO2 75.6 mm[Hg] Low 80.0-100.0 [facility] Comment on above: Performed By: #### A BG ####Point of Care testing, ABG TV 500 mL Normal [facility] Comment on above: Performed By: #### A BG ####Point of Care testing, CO2 [Moles/Vol] 20.9 mmol/L Low 23.0-27.0 [facility] Comment on above: Performed By: #### A BG ####Point of Care testing, HCO3 (Bld) [Moles/Vol] 19.9 mmol/L Low 23.0-29.0 [facility] Comment on above: Performed By: #### A BG ####Point of Care testing, Respiratory Critical Normal [facility] Comment on above: Result Comment: Crit ical Value called on: 08/10/2023 at 18:22PERFORMED BY:[place] [address] [place], [place] [phone] MEDICAL DIRECTORJOSEPH GARCIA M.D. Performed By: #### A BG ####Point of Care testing, Set Respiratory Rate 14 Normal [facility] Comment on above: Performed By: #### A BG ####Point of Care testing, VBG Draw Site Left Radial Normal [facility] Comment on above: Performed By: #### A BG ####Point of Care testing, Ventilator Mode AC Normal [facility] Comment on above: Performed By: #### A BG ####Point of Care testing, ABG Base Excess 1.2 mmol/L Normal -3.0-3.0 [facility] Comment on above: Performed By: #### A BG ####Point of Care testing, ABG Frac Inspired O2 30 % Normal [facility] Comment on above: Performed By: #### A BG ####Point of Care testing, ABG Oxygen Content 6.3 mmol/L Low 6.6-9.7 [facility] Comment on above: Performed By: #### A BG ####Point of Care testing, ABG Oxygen Saturation 87.5 % Low 95.0-100.0 [facility] Comment on above: Performed By: #### A BG ####Point of Care testing, ABG PCO2 34.9 mm[Hg] Low 35.0-45.0 [facility] Comment on above: Performed By: #### A BG ####Point of Care testing, ABG PEEP 5 Normal [facility] Comment on above: Performed By: #### A BG ####Point of Care testing, ABG PH 7.47 High 7.35-7.45 [facility] Comment on above: Performed By: #### A BG ####Point of Care testing, ABG PO2 54.0 mm[Hg] Low 80.0-100.0 [facility] Comment on above: Performed By: #### A BG ####Point of Care testing, ABG TV 500 mL Normal [facility] Comment on above: Performed By: #### A BG ####Point of Care testing, CO2 [Moles/Vol] 25.7 mmol/L Normal 23.0-27.0 [facility] Comment on above: Performed By: #### A BG ####Point of Care testing, HCO3 (Bld) [Moles/Vol] 24.7 mmol/L Normal 23.0-29.0 [facility] Comment on above: Performed By: #### A BG ####Point of Care testing, Respiratory Critical Normal [facility] Comment on above: Result Comment: Crit ical Value called on: 08/10/2023 at 04:46PERFORMED BY:[address] [place], [place] [phone] MEDICAL DIRECTORJOSEPH GARCIA M.D. Performed By: #### A BG ####Point of Care testing, Set Respiratory Rate 14 Normal [facility] Comment on above: Performed By: #### A BG ####Point of Care testing, VBG Draw Site Left Radial Normal [facility] Comment on above: Performed By: #### A BG ####Point of Care testing, Ventilator Mode AC Normal [facility] Comment on above: Performed By: #### A BG ####Point of Care testing, Basic Metabolic Panelon 07-24 Anion gap [Moles/Vol] 13.0 mmol/L Normal 6.0-15.0 [facility] Comment on above: Performed By: #### S CAN CBC, BMP ####[place] [id number] [facility] Calcium [Mass/Vol] 7.7 mg/dL Low 8.6-10.3 [facility] Comment on above: Performed By: #### S CAN CBC, BMP ####[place] [id number] [facility] Chloride [Moles/Vol] 90 mmol/L Low 98-107 [facility] Comment on above: Performed By: #### S CAN CBC, BMP ####[place] [id number] [facility] CO2 [Moles/Vol] 27.5 mmol/L Normal 21.0-31.0 [facility] Comment on above: Performed By: #### S CAN CBC, BMP ####[place] [id number] [facility] Creatinine [Mass/Vol] 3.49 mg/dL Significan t change up 0.70-1.30 [facility] Comment on above: Performed By: #### S CAN CBC, BMP ####[address] [address] [facility] Creatinine Clr Calc Pharmacy 21.33 Normal [facility] Comment on above: Result Comment: PERF ORMED BY:[place] [address] [address] [place], [place] [phone] MEDICAL DIRECTORJOSEPH GARCIA M.D. Performed By: #### S CAN CBC, BMP ####[place] [address] [place] [address] [facility] GFR/1.73 sq M.predicted MDRD (S/P/Bld) [Vol rate/Area] 17.956 mL/min/{1.73_m2} Normal [facility] Comment on above: Performed By: #### S CAN CBC, BMP ####[place] [address] [id number] [place] [id number] [facility] Glucose [Mass/Vol] 172 mg/dL High 70-100 [facility] Comment on above: Result Comment: [place] Glucose Reference Range is dependent on time and content of last meal. Glucose of more than 200 mg/dL in a nonstressed, ambulatory subject supports the diagnosis of Diabetes Mellitus. ADA recommended reference range Performed By: #### S CAN CBC, BMP ####[address] [address] [facility] Potassium [Moles/Vol] 4.5 mmol/L Normal 3.5-5.1 [facility] Comment on above: Performed By: #### S CAN CBC, BMP ####[address] [address] [facility] Sodium [Moles/Vol] 126 mmol/L Low 136-145 [facility] Comment on above: Performed By: #### S CAN CBC, BMP ####[address] [place] [address] [facility] Urea nitrogen [Mass/Vol] 56 mg/dL High 7-25 [facility] Comment on above: Performed By: #### S CAN CBC, BMP ####[address] [address] [facility] ECG 12 lead ECGon 08-10-2023 ECG 12 lead ECG Normal [facility] Glucose Poct Glucometerson 0 08-10-2023 Commemt1 Glu2: Cleaned Meter Normal [facility] Comment on above: Result Comment: PERF ORMED BY:[place] [address] [address] [place]YAT[address]Z [place], [place] [phone] MEDICAL DIRECTORJOSEPH GARCIA M.D. Performed By: #### G LULS ####Point of Care testing, Glucose [Mass/Vol] 188 mg/dL Normal [facility] Comment on above: Result Comment: [place] om Glucose Reference Range is dependent on time and content of last meal. Glucose of more than 200 mg/dL in a nonstressed, ambulatory subject supports the diagnosis of Diabetes Mellitus. Performed By: #### G LULS ####Point of Care testing, Commemt1 Glu2: Cleaned Meter Normal [facility] Comment on above: Result Comment: PERF ORMED BY:[address] LATamikoTracyLUZ [place], [place] [phone] MEDICAL DIRECTORJOSEPH GARCIA M.D. Performed By: #### G LULS ####Point of Care testing, Glucose [Mass/Vol] 195 mg/dL Normal [facility] Comment on above: Result Comment: [place] om Glucose Reference Range is dependent on time and content of last meal. Glucose of more than 200 mg/dL in a nonstressed, ambulatory subject supports the diagnosis of Diabetes Mellitus. Performed By: #### G LULS ####Point of Care testing, Commemt1 Glu2: Cleaned Meter Normal [facility] Comment on above: Result Comment: PERF ORMED BY:[place] [address] [address] [place], [place] [phone] MEDICAL DIRECTORJOSEPH GARCIA M.D. Performed By: #### G LULS ####Point of Care testing, Glucose [Mass/Vol] 202 mg/dL Normal [facility] Comment on above: Result Comment: [place] om Glucose Reference Range is dependent on time and content of last meal. Glucose of more than 200 mg/dL in a nonstressed, ambulatory subject supports the diagnosis of Diabetes Mellitus. Performed By: #### G LULS ####Point of Care testing, Commemt1 Glu2: Cleaned Meter Normal [facility] Comment on above: Result Comment: PERF ORMED BY:[address] [place], [place] [phone] MEDICAL DIRECTORJOSEPH GARCIA M.D. Performed By: #### G LULS ####Point of Care testing, Glucose [Mass/Vol] 178 mg/dL Normal [facility] Comment on above: Result Comment: [facility][note 3] Glucose Reference Range is dependent on time and content of last meal. Glucose of more than 200 mg/dL in a nonstressed, ambulatory subject supports the diagnosis of Diabetes Mellitus. Performed By: #### G LULS ####Point of Care testing, Scan and CBCon 08-10-2023 Anisocytosis Ql (Bld) Slight Normal [facility] Comment on above: Performed By: #### S CAN CBC, BMP ####[address] Basophils (Bld) [#/Vol] 0.1 10*3/uL Normal 0.0-0.2 [facility] Comment on above: Performed By: #### S CAN CBC, BMP ####[address] Basophils/100 WBC (Bld) 0.5 % Normal . [facility] Comment on above: Performed By: #### S CAN CBC, BMP ####[address] Eosinophils (Bld) [#/Vol] 0.5 10*3/uL High 0.0-0.45 [facility] Comment on above: Performed By: #### S CAN CBC, BMP ####[address] Eosinophils/100 WBC (Bld) 2.5 % Normal . [facility] Comment on above: Performed By: #### S CAN CBC, BMP ####[address] Erythrocyte distribution width (RBC) [Ratio] 17.5 % High 12.0-14.8 [facility] Comment on above: Performed By: #### S CAN CBC, BMP ####[address] Hematocrit (Bld) [Volume fraction] 31.2 % Low 38.8-50.0 [facility] Comment on above: Performed By: #### S CAN CBC, BMP ####[address] Hemoglobin (Bld) [Mass/Vol] 10.2 g/dL Low 13.0-17.0 [facility] Comment on above: Performed By: #### S CAN CBC, BMP ####[address] Lymphocytes (Bld) [#/Vol] 1.4 10*3/uL Normal 1.00-4.8 [facility] Comment on above: Performed By: #### S CAN CBC, BMP ####[address] Lymphocytes/100 WBC (Bld) 7.4 % Normal . [facility] Comment on above: Performed By: #### S CAN CBC, BMP ####[address] MCH (RBC) [Entitic mass] 29.2 pg Normal 27.5-35.2 [facility] Comment on above: Performed By: #### S CAN CBC, BMP ####[address] MCV (RBC) [Entitic vol] 88.9 fL Normal 83.5-101 [facility] Comment on above: Performed By: #### S CAN CBC, BMP ####[address] Mean Corpuscular HGB Conc 32.9 g/dL Normal 32.5-35.6 [facility] Comment on above: Performed By: #### S CAN CBC, BMP ####[address] [place] [address] [facility] Monocytes (Bld) [#/Vol] 2.7 10*3/uL High 0.0-0.8 [facility] Comment on above: Performed By: #### S CAN CBC, BMP ####[place] [id number] [facility] Monocytes/100 WBC (Bld) 13.8 % Normal . [facility] Comment on above: Performed By: #### S CAN CBC, BMP ####[place] [id number] [facility] Neutrophils (Bld) [#/Vol] 14.7 10*3/uL High 1.8-7.7 [facility] Comment on above: Performed By: #### S CAN CBC, BMP ####[place] [id number] [facility] Neutrophils/100 WBC (Bld) 75.8 % Normal . [facility] Comment on above: Performed By: #### S CAN CBC, BMP ####[place] [id number] [facility] NRBC% 0.0 /100{WBC} Normal 0-0.5 [facility] Comment on above: Performed By: #### S CAN CBC, BMP ####[address] [address] [facility] Platelet Estimate Increased Normal Normal [facility] Comment on above: Performed By: #### S CAN CBC, BMP ####[place] [id number] [facility] Platelet mean volume (Bld) [Entitic vol] 7.3 fL Normal 6.6-10.1 [facility] Comment on above: Performed By: #### S CAN CBC, BMP ####[place] [id number] [facility] Platelet Morphology Normal Normal Normal [facility] Comment on above: Result Comment: PERF ORMED BY:[address] [place], [place] [phone] MEDICAL DIRECTORJOSEPH GARCIA M.D. Performed By: #### S CAN CBC, BMP ####[address] [place] [address] [facility] Platelets (Bld) [#/Vol] 587 10*3/uL High 150-450 [facility] Comment on above: Performed By: #### S CAN CBC, BMP ####[place] [place] [id number] [facility] RBC (Bld) [#/Vol] 3.51 10*6/uL Low 3.90-5.60 [facility] Comment on above: Performed By: #### S CAN CBC, BMP ####[place] [address] [place] [id number] [facility] WBC (Bld) [#/Vol] 19.4 10*3/uL High 4.1-10.5 [facility] Comment on above: Performed By: #### S CAN CBC, BMP ####[place] [id number] [facility] XR abdomen 1Von 08-10-2023 XR abdomen 1V Normal [facility] XR chest 1V portableon 08-09 XR chest 1V portable Normal [facility] Arterial Blood Gason 024 ABG Base Excess 2.3 mmol/L Normal -3.0-3.0 [facility] Comment on above: Performed By: #### A BG ####Point of Care testing, ABG Frac Inspired O2 40 % Normal [facility] Comment on above: Performed By: #### A BG ####Point of Care testing, ABG Oxygen Content 6.2 mmol/L Low 6.6-9.7 [facility] Comment on above: Performed By: #### A BG ####Point of Care testing, ABG Oxygen Saturation 92.0 % Low 95.0-100.0 [facility] Comment on above: Performed By: #### A BG ####Point of Care testing, ABG PCO2 31.5 mm[Hg] Low 35.0-45.0 [facility] Comment on above: Performed By: #### A BG ####Point of Care testing, ABG PEEP 5 Normal [facility] Comment on above: Performed By: #### A BG ####Point of Care testing, ABG PH 7.52 High 7.35-7.45 [facility] Comment on above: Performed By: #### A BG ####Point of Care testing, ABG PO2 61.0 mm[Hg] Low 80.0-100.0 [facility] Comment on above: Performed By: #### A BG ####Point of Care testing, ABG TV 500 mL Normal [facility] Comment on above: Performed By: #### A BG ####Point of Care testing, CO2 [Moles/Vol] 25.8 mmol/L Normal 23.0-27.0 [facility] Comment on above: Performed By: #### A BG ####Point of Care testing, HCO3 (Bld) [Moles/Vol] 24.9 mmol/L Normal 23.0-29.0 [facility] Comment on above: Performed By: #### A BG ####Point of Care testing, Respiratory Critical Normal [facility] Comment on above: Result Comment: Crit ical Value called on: 08/09/2023 at 04:01PERFORMED BY:[facility] [place], [place] [phone] MEDICAL DIRECTORJOSEPH GARCIA M.D. Performed By: #### A BG ####Point of Care testing, Set Respiratory Rate 14 Normal [facility] Comment on above: Performed By: #### A BG ####Point of Care testing, VBG Draw Site Left Radial Normal [facility] Comment on above: Performed By: #### A BG ####Point of Care testing, Ventilator Mode AC Normal [facility] Comment on above: Performed By: #### A BG ####Point of Care testing, Basic Metabolic Panel 07-24 Anion gap [Moles/Vol] 13.3 mmol/L Normal 6.0-15.0 [facility] Comment on above: Performed By: #### B MP, CBC ####[address] [address] [facility] Calcium [Mass/Vol] 7.5 mg/dL Low 8.6-10.3 [facility] Comment on above: Performed By: #### B MP, CBC ####[address] [place] [address] [place] Chloride [Moles/Vol] 91 mmol/L Low 98-107 [facility] Comment on above: Performed By: #### B MP, CBC ####[id number] [place] [address] [place] CO2 [Moles/Vol] 27.2 mmol/L Normal 21.0-31.0 [facility] Comment on above: Performed By: #### B MP, CBC ####[address] [address] [place] Creatinine [Mass/Vol] 2.81 mg/dL Significan t change up 0.70-1.30 [facility] Comment on above: Performed By: #### B MP, CBC ####[address] [address] [place] Creatinine Clr Calc Pharmacy 26.38 Normal [facility] Comment on above: Result Comment: PERF ORMED BY:[address] [place], [place] [phone] MEDICAL SILVIA GARCIA M.D. Performed By: #### B MP, CBC ####[address] [address] [place] GFR/1.73 sq M.predicted MDRD (S/P/Bld) [Vol rate/Area] 23.290 mL/min/{1.73_m2} Normal [facility] Comment on above: Performed By: #### B MP, CBC ####[address] [address] [facility] Glucose [Mass/Vol] 157 mg/dL High 70-100 [facility] Comment on above: Result Comment: [place] Glucose Reference Range is dependent on time and content of last meal. Glucose of more than 200 mg/dL in a nonstressed, ambulatory subject supports the diagnosis of Diabetes Mellitus. ADA recommended reference range Performed By: #### B MP, CBC ####[address] Potassium [Moles/Vol] 4.5 mmol/L Normal 3.5-5.1 [facility] Comment on above: Performed By: #### B MP, CBC ####[address] Sodium [Moles/Vol] 127 mmol/L Low 136-145 [facility] Comment on above: Performed By: #### B MP, CBC ####[address] Urea nitrogen [Mass/Vol] 35 mg/dL High 7-25 [facility] Comment on above: Performed By: #### B MP, CBC ####[address] Complete Blood Count Auto Di ffon 08-09-2023 Basophils (Bld) [#/Vol] 0.1 10*3/uL Normal 0.0-0.2 [facility] Comment on above: Result Comment: PERF ORMED BY:[address] [place], [place] [phone] MEDICAL DIRECTORJOSEPH GARCIA M.D. Performed By: #### B MP, CBC ####[address] Basophils/100 WBC (Bld) 0.3 % Normal . [facility] Comment on above: Performed By: #### B MP, CBC ####[address] Eosinophils (Bld) [#/Vol] 0.3 10*3/uL Normal 0.0-0.45 [facility] Comment on above: Performed By: #### B MP, CBC ####[address] Eosinophils/100 WBC (Bld) 1.6 % Normal . [facility] Comment on above: Performed By: #### B MP, CBC ####[address] Erythrocyte distribution width (RBC) [Ratio] 18.0 % High 12.0-14.8 [facility] Comment on above: Performed By: #### B MP, CBC ####[address] Hematocrit (Bld) [Volume fraction] 29.0 % Low 38.8-50.0 [facility] Comment on above: Performed By: #### B MP, CBC ####[address] Hemoglobin (Bld) [Mass/Vol] 9.6 g/dL Low 13.0-17.0 [facility] Comment on above: Performed By: #### B MP, CBC ####[address] Lymphocytes (Bld) [#/Vol] 1.6 10*3/uL Normal 1.00-4.8 [facility] Comment on above: Performed By: #### B MP, CBC ####[address] Lymphocytes/100 WBC (Bld) 8.4 % Normal . [facility] Comment on above: Performed By: #### B MP, CBC ####[address] MCH (RBC) [Entitic mass] 29.4 pg Normal 27.5-35.2 [facility] Comment on above: Performed By: #### B MP, CBC ####[address] MCV (RBC) [Entitic vol] 88.7 fL Normal 83.5-101 [facility] Comment on above: Performed By: #### B MP, CBC ####[address] Mean Corpuscular HGB Conc 33.1 g/dL Normal 32.5-35.6 [facility] Comment on above: Performed By: #### B MP, CBC ####[address] Monocytes (Bld) [#/Vol] 2.6 10*3/uL High 0.0-0.8 [facility] Comment on above: Performed By: #### B MP, CBC ####[id number] [facility] Monocytes/100 WBC (Bld) 14.1 % Normal . [facility] Comment on above: Result Comment: Abso lute monocytosis is commonly reactive in nature. However, if unexplained, recommend follow-up CBC in 3 months to evaluate for persistence. Performed By: #### B MP, CBC ####[address] Neutrophils (Bld) [#/Vol] 13.9 10*3/uL High 1.8-7.7 [facility] Comment on above: Performed By: #### B MP, CBC ####[id number] [facility] Neutrophils/100 WBC (Bld) 75.6 % Normal . [facility] Comment on above: Performed By: #### B MP, CBC ####[id number] [facility] NRBC% 0.1 /100{WBC} Normal 0-0.5 [facility] Comment on above: Performed By: #### B MP, CBC ####[id number] [facility] Platelet mean volume (Bld) [Entitic vol] 7.5 fL Normal 6.6-10.1 [facility] Comment on above: Performed By: #### B MP, CBC ####[id number] [facility] Platelets (Bld) [#/Vol] 512 10*3/uL High 150-450 [facility] Comment on above: Performed By: #### B MP, CBC ####[address] [address] [facility] RBC (Bld) [#/Vol] 3.27 10*6/uL Low 3.90-5.60 [facility] Comment on above: Performed By: #### B MP, CBC ####[address] [address] [facility] WBC (Bld) [#/Vol] 18.4 10*3/uL High 4.1-10.5 [facility] Comment on above: Performed By: #### B MP, CBC ####[id number] [facility] ECG 12 lead ECGon 08-09-2023 ECG 12 lead ECG Normal [facility] Glucose Poct Glucometerson 0 08-09-2023 Commemt1 Glu2: Cleaned Meter Normal [facility] Comment on above: Result Comment: PERF ORMED BY:[address] [place] [place], [place] [phone] MEDICAL DIRECTORJOSEPH GARCIA M.D. Performed By: #### G LUANURAG ####Point of Care testing, Glucose [Mass/Vol] 180 mg/dL Normal [facility] Comment on above: Result Comment: [facility][note 3] Glucose Reference Range is dependent on time and content of last meal. Glucose of more than 200 mg/dL in a nonstressed, ambulatory subject supports the diagnosis of Diabetes Mellitus. Performed By: #### G LULS ####Point of Care testing, Commemt1 Glu2: Cleaned Meter Normal [facility] Comment on above: Result Comment: PERF ORMED BY:[address] [place], [place] [phone] MEDICAL DIRECTORJOSEPH GARCIA M.D. Performed By: #### G LULS ####Point of Care testing, Glucose [Mass/Vol] 171 mg/dL Normal [facility] Comment on above: Result Comment: [facility][note 3] Glucose Reference Range is dependent on time and content of last meal. Glucose of more than 200 mg/dL in a nonstressed, ambulatory subject supports the diagnosis of Diabetes Mellitus. Performed By: #### G LULS ####Point of Care testing, Commemt1 Glu2: Cleaned Meter Normal [facility] Comment on above: Result Comment: PERF ORMED BY:[address] [place], [place] [phone] MEDICAL DIRECTORJOSEPH GARCIA M.D. Performed By: #### G LULS ####Point of Care testing, Glucose [Mass/Vol] 191 mg/dL Normal [facility] Comment on above: Result Comment: [place] om Glucose Reference Range is dependent on time and content of last meal. Glucose of more than 200 mg/dL in a nonstressed, ambulatory subject supports the diagnosis of Diabetes Mellitus. Performed By: #### G LULS ####Point of Care testing, Commemt1 Glu2: Cleaned Meter Normal [facility] Comment on above: Result Comment: PERF ORMED BY:[address] [place], [place] [phone] MEDICAL DIRECTORJOSEPH GARCIA M.D. Performed By: #### G LULS ####Point of Care testing, Glucose [Mass/Vol] 173 mg/dL Normal [facility] Comment on above: Result Comment: [place] om Glucose Reference Range is dependent on time and content of last meal. Glucose of more than 200 mg/dL in a nonstressed, ambulatory subject supports the diagnosis of Diabetes Mellitus. Performed By: #### G LULS ####Point of Care testing, Glucose [Mass/Vol] 173 mg/dL Normal [facility] Comment on above: Result Comment: [place] om Glucose Reference Range is dependent on time and content of last meal. Glucose of more than 200 mg/dL in a nonstressed, ambulatory subject supports the diagnosis of Diabetes Mellitus.PERFORMED BY:[address] [place], [place] [phone] MEDICAL DIRECTORJOSEPH GARCIA M.D. Performed By: #### G LULS ####Point of Care testing, XR chest 1V portableon 08-08 XR chest 1V portable Normal [facility] Arterial Blood [address]ason 024 ABG Base Excess 2.8 mmol/L Normal -3.0-3.0 [facility] Comment on above: Performed By: #### A BG ####Point of Care testing, ABG Frac Inspired O2 40 % Normal [facility] Comment on above: Performed By: #### A BG ####Point of Care testing, ABG Oxygen Content 5.7 mmol/L Low 6.6-9.7 [facility] Comment on above: Performed By: #### A BG ####Point of Care testing, ABG Oxygen Saturation 90.9 % Low 95.0-100.0 [facility] Comment on above: Performed By: #### A BG ####Point of Care testing, ABG PCO2 41.1 mm[Hg] Normal 35.0-45.0 [facility] Comment on above: Performed By: #### A BG ####Point of Care testing, ABG PEEP 5 Normal [facility] Comment on above: Performed By: #### A BG ####Point of Care testing, ABG PH 7.44 Normal 7.35-7.45 [facility] Comment on above: Performed By: #### A BG ####Point of Care testing, ABG PO2 61.0 mm[Hg] Low 80.0-100.0 [facility] Comment on above: Performed By: #### A BG ####Point of Care testing, ABG TV 500 mL Normal [facility] Comment on above: Performed By: #### A BG ####Point of Care testing, CO2 [Moles/Vol] 28.4 mmol/L High 23.0-27.0 [facility] Comment on above: Performed By: #### A BG ####Point of Care testing, HCO3 (Bld) [Moles/Vol] 27.2 mmol/L Normal 23.0-29.0 [facility] Comment on above: Performed By: #### A BG ####Point of Care testing, Respiratory Critical Normal [facility] Comment on above: Result Comment: Crit ical Value called on: 08/08/2023 at 05:24PERFORMED BY:[address] [address] [address] [place], [place] [phone] MEDICAL DIRECTORJOSEPH GARCIA M.D. Performed By: #### A BG ####Point of Care testing, Set Respiratory Rate 14 Normal [facility] Comment on above: Performed By: #### A BG ####Point of Care testing, VBG Draw Site Left Radial Normal [facility] Comment on above: Performed By: #### A BG ####Point of Care testing, Ventilator Mode AC Normal [facility] Comment on above: Performed By: #### A BG ####Point of Care testing, Basic Metabolic Panelon 07-24 Anion gap [Moles/Vol] 13.8 mmol/L Normal 6.0-15.0 [facility] Comment on above: Performed By: #### B MP, CBC ####[address] [place] [address] [place] Calcium [Mass/Vol] 7.6 mg/dL Low 8.6-10.3 [facility] Comment on above: Performed By: #### B MP, CBC ####[address] [place] [address] [place] Chloride [Moles/Vol] 89 mmol/L Low 98-107 [facility] Comment on above: Performed By: #### B MP, CBC ####[address] [address] [facility] CO2 [Moles/Vol] 27.6 mmol/L Normal 21.0-31.0 [facility] Comment on above: Performed By: #### B MP, CBC ####[address] [place] [address] [facility] Creatinine [Mass/Vol] 3.67 mg/dL Significan t change up 0.70-1.30 [facility] Comment on above: Performed By: #### B MP, CBC ####[id number] [facility] Creatinine Clr Calc Pharmacy 20.63 Normal [facility] Comment on above: Result Comment: PERF ORMED BY:[address] [address] [place], [place] [phone] MEDICAL SILVIA GARCIA M.D. Performed By: #### B MP, CBC ####[id number] [facility] GFR/1.73 sq M.predicted MDRD (S/P/Bld) [Vol rate/Area] 16.905 mL/min/{1.73_m2} Normal [facility] Comment on above: Performed By: #### B MP, CBC ####[address] Glucose [Mass/Vol] 176 mg/dL High 70-100 [facility] Comment on above: Result Comment: [place] Glucose Reference Range is dependent on time and content of last meal. Glucose of more than 200 mg/dL in a nonstressed, ambulatory subject supports the diagnosis of Diabetes Mellitus. ADA recommended reference range Performed By: #### B MP, CBC ####[address] Potassium [Moles/Vol] 4.4 mmol/L Normal 3.5-5.1 [facility] Comment on above: Performed By: #### B MP, CBC ####[id number] [facility] Sodium [Moles/Vol] 126 mmol/L Low 136-145 [facility] Comment on above: Performed By: #### B MP, CBC ####[id number] [facility] Urea nitrogen [Mass/Vol] 45 mg/dL High 7-25 [facility] Comment on above: Performed By: #### B MP, CBC ####[id number] [facility] Complete Blood Count Auto Di ffon 08-08-2023 Basophils (Bld) [#/Vol] 0.1 10*3/uL Normal 0.0-0.2 [facility] Comment on above: Result Comment: PERF ORMED BY:[address] [place], [place] [phone] MEDICAL DIRECTORJOSEPH GARCIA M.D. Performed By: #### B MP, CBC ####[address] Basophils/100 WBC (Bld) 0.6 % Normal . [facility] Comment on above: Performed By: #### B MP, CBC ####[address] Eosinophils (Bld) [#/Vol] 0.2 10*3/uL Normal 0.0-0.45 [facility] Comment on above: Performed By: #### B MP, CBC ####[address] Eosinophils/100 WBC (Bld) 0.8 % Normal . [facility] Comment on above: Performed By: #### B MP, CBC ####[address] Erythrocyte distribution width (RBC) [Ratio] 18.1 % High 12.0-14.8 [facility] Comment on above: Performed By: #### B MP, CBC ####[address] Hematocrit (Bld) [Volume fraction] 26.9 % Low 38.8-50.0 [facility] Comment on above: Performed By: #### B MP, CBC ####[address] Hemoglobin (Bld) [Mass/Vol] 9.0 g/dL Low 13.0-17.0 [facility] Comment on above: Performed By: #### B MP, CBC ####[address] Lymphocytes (Bld) [#/Vol] 2.0 10*3/uL Normal 1.00-4.8 [facility] Comment on above: Performed By: #### B MP, CBC ####[address] Lymphocytes/100 WBC (Bld) 10.4 % Normal . [facility] Comment on above: Performed By: #### B MP, CBC ####[address] MCH (RBC) [Entitic mass] 29.9 pg Normal 27.5-35.2 [facility] Comment on above: Performed By: #### B MP, CBC ####[address] MCV (RBC) [Entitic vol] 89.1 fL Normal 83.5-101 [facility] Comment on above: Performed By: #### B MP, CBC ####[address] Mean Corpuscular HGB Conc 33.6 g/dL Normal 32.5-35.6 [facility] Comment on above: Performed By: #### B MP, CBC ####[address] Monocytes (Bld) [#/Vol] 2.8 10*3/uL High 0.0-0.8 [facility] Comment on above: Performed By: #### B MP, CBC ####[address] Monocytes/100 WBC (Bld) 14.6 % Normal . [facility] Comment on above: Performed By: #### B MP, CBC ####[address] Neutrophils (Bld) [#/Vol] 14.3 10*3/uL High 1.8-7.7 [facility] Comment on above: Performed By: #### B MP, CBC ####[address] Neutrophils/100 WBC (Bld) 73.6 % Normal . [facility] Comment on above: Performed By: #### B MP, CBC ####[address] NRBC% 0.0 /100{WBC} Normal 0-0.5 [facility] Comment on above: Performed By: #### B MP, CBC ####[address] Platelet mean volume (Bld) [Entitic vol] 7.9 fL Normal 6.6-10.1 [facility] Comment on above: Performed By: #### B MP, CBC ####[address] Platelets (Bld) [#/Vol] 452 10*3/uL High 150-450 [facility] Comment on above: Performed By: #### B MP, CBC ####[address] RBC (Bld) [#/Vol] 3.02 10*6/uL Low 3.90-5.60 [facility] Comment on above: Performed By: #### B MP, CBC ####[address] WBC (Bld) [#/Vol] 19.5 10*3/uL High 4.1-10.5 [facility] Comment on above: Performed By: #### B MP, CBC ####[id number] [facility] ECG 12 lead ECGon 08-08-2023 ECG 12 lead ECG Normal [facility] Glucose Poct Glucometerson 0 08-08-2023 Commemt1 Glu2: Cleaned Meter Normal [facility] Comment on above: Performed By: #### G LULS ####Point of Care testing, Commemt2 SLIDING SCALE COVERA Normal [facility] Comment on above: Result Comment: PERF ORMED BY:[address] [place], [place] [phone] MEDICAL DIRECTORJOSEPH GARCIA M.D. Performed By: #### G LULS ####Point of Care testing, Glucose [Mass/Vol] 146 mg/dL Normal [facility] Comment on above: Result Comment: [place] om Glucose Reference Range is dependent on time and content of last meal. Glucose of more than 200 mg/dL in a nonstressed, ambulatory subject supports the diagnosis of Diabetes Mellitus. Performed By: #### G LULS ####Point of Care testing, Glucose [Mass/Vol] 176 mg/dL Normal [facility] Comment on above: Result Comment: [place] om Glucose Reference Range is dependent on time and content of last meal. Glucose of more than 200 mg/dL in a nonstressed, ambulatory subject supports the diagnosis of Diabetes Mellitus.PERFORMED BY:[address] [address] [place], [place] [phone] MEDICAL DIRECTORJOSEPH GARCIA M.D. Performed By: #### G LULS ####Point of Care testing, Glucose [Mass/Vol] 185 mg/dL Normal [facility] Comment on above: Result Comment: [place] om Glucose Reference Range is dependent on time and content of last meal. Glucose of more than 200 mg/dL in a nonstressed, ambulatory subject supports the diagnosis of Diabetes Mellitus.PERFORMED BY:[address] [address] [place], [place] [phone] MEDICAL DIRECTORJOSEPH GARCIA M.D. Performed By: #### G LULS ####Point of Care testing, Commemt1 Glu2: Cleaned Meter Normal [facility] Comment on above: Performed By: #### G LULS ####Point of Care testing, Commemt2 SLIDING SCALE COVERA Normal [facility] Comment on above: Result Comment: PERF ORMED BY:[address] [address] [address] [place], [place] [phone] MEDICAL SILVIA GARCIA M.D. Performed By: #### G LULS ####Point of Care testing, Glucose [Mass/Vol] 239 mg/dL Normal [facility] Comment on above: Result Comment: [place] Glucose Reference Range is dependent on time and content of last meal. Glucose of more than 200 mg/dL in a nonstressed, ambulatory subject supports the diagnosis of Diabetes Mellitus. Performed By: #### G LULS ####Point of Care testing, MR head/brain wo conon 08-07 MR head/brain wo con Normal [facility] No Panel InformationOrdered By: Vania Chacon on 08-08-2023 Bedside Glucose #2 Comment Sliding scale [facility] Sliding scale [facility] XR chest 1V portableon 08-07 XR chest 1V portable Normal [facility] Alanine aminotransferase [En zymatic activity/volume] in Serum or PlasmaOrdered By: Mehul Garrett on 08-07-2023 ALT [Catalytic activity/Vol] 11 U/L Normal 7-52 [facility] Comment on above: Performed By: #### M G, CMP, CBC, PHOS ####[facility] [address] [place] [address] [facility] Alkaline phosphatase [Enzyma tic activity/volume] in Serum or PlasmaOrdered By: Mehul Garrett on 08-07-2023 ALP [Catalytic activity/Vol] 82 U/L Normal 34-104 [facility] Comment on above: Performed By: #### M G, CMP, CBC, PHOS ####[facility] [place] [address] [facility] Arterial Blood Gason 024 ABG Base Excess 1.9 mmol/L Normal -3.0-3.0 [facility] Comment on above: Performed By: #### A BG ####Point of Care testing, ABG Frac Inspired O2 40 % Normal [facility] Comment on above: Performed By: #### A BG ####Point of Care testing, ABG Oxygen Content 5.8 mmol/L Low 6.6-9.7 [facility] Comment on above: Performed By: #### A BG ####Point of Care testing, ABG Oxygen Saturation 90.3 % Low 95.0-100.0 [facility] Comment on above: Performed By: #### A BG ####Point of Care testing, ABG PCO2 32.1 mm[Hg] Low 35.0-45.0 [facility] Comment on above: Performed By: #### A BG ####Point of Care testing, ABG PEEP 5 Normal [facility] Comment on above: Performed By: #### A BG ####Point of Care testing, ABG PH 7.50 High 7.35-7.45 [facility] Comment on above: Performed By: #### A BG ####Point of Care testing, ABG PO2 56.6 mm[Hg] Low 80.0-100.0 [facility] Comment on above: Performed By: #### A BG ####Point of Care testing, ABG TV 500 mL Normal [facility] Comment on above: Performed By: #### A BG ####Point of Care testing, CO2 [Moles/Vol] 25.7 mmol/L Normal 23.0-27.0 [facility] Comment on above: Performed By: #### A BG ####Point of Care testing, HCO3 (Bld) [Moles/Vol] 24.7 mmol/L Normal 23.0-29.0 [facility] Comment on above: Performed By: #### A BG ####Point of Care testing, Respiratory Critical Normal [facility] Comment on above: Result Comment: Crit ical Value called on: 08/07/2023 at 04:36PERFORMED BY:[facility] [place], [place] [phone] MEDICAL DIRECTORJOSEPH GARCIA M.D. Performed By: #### A BG ####Point of Care testing, Set Respiratory Rate 14 Normal [facility] Comment on above: Performed By: #### A BG ####Point of Care testing, VBG Draw Site Left Radial Normal [facility] Comment on above: Performed By: #### A BG ####Point of Care testing, Aspartate aminotransferase [ Enzymatic activity/volume] in Serum or PlasmaOrdered By: Mehul Garrett on 08-07-2023 AST [Catalytic activity/Vol] 31 U/L Normal 13-39 [facility] Comment on above: Performed By: #### M G, CMP, CBC, PHOS ####[address] Bilirubin.total [Mass/volume ] in Serum or PlasmaOrdered By: Mehul Garrett on 08-07-2023 Bilirubin [Mass/Vol] 0.4 mg/dL Normal 0.3-1.0 [facility] Comment on above: Performed By: #### M G, CMP, CBC, PHOS ####[address] Complete Blood Count Auto Di ffon 08-07-2023 Basophils (Bld) [#/Vol] 0.0 10*3/uL Normal 0.0-0.2 [facility] Comment on above: Result Comment: PERF ORMED BY:[address] [place], [place] [phone] MEDICAL DIRECTORJOSEPH GARCIA M.D. Performed By: #### M G, CMP, CBC, PHOS ####[address] Basophils/100 WBC (Bld) 0.4 % Normal . [facility] Comment on above: Performed By: #### M G, CMP, CBC, PHOS ####[address] Eosinophils (Bld) [#/Vol] 0.1 10*3/uL Normal 0.0-0.45 [facility] Comment on above: Performed By: #### M G, CMP, CBC, PHOS ####[address] Eosinophils/100 WBC (Bld) 0.6 % Normal . [facility] Comment on above: Performed By: #### M G, CMP, CBC, PHOS ####[place] [address] [place] Erythrocyte distribution width (RBC) [Ratio] 18.2 % High 12.0-14.8 [facility] Comment on above: Performed By: #### M G, CMP, CBC, PHOS ####[address] Hematocrit (Bld) [Volume fraction] 27.1 % Low 38.8-50.0 [facility] Comment on above: Performed By: #### M G, CMP, CBC, PHOS ####[address] Hemoglobin (Bld) [Mass/Vol] 9.1 g/dL Low 13.0-17.0 [facility] Comment on above: Performed By: #### M G, CMP, CBC, PHOS ####[address] Lymphocytes (Bld) [#/Vol] 1.5 10*3/uL Normal 1.00-4.8 [facility] Comment on above: Performed By: #### M G, CMP, CBC, PHOS ####[address] Lymphocytes/100 WBC (Bld) 11.6 % Normal . [facility] Comment on above: Performed By: #### M G, CMP, CBC, PHOS ####[address] MCH (RBC) [Entitic mass] 29.3 pg Normal 27.5-35.2 [facility] Comment on above: Performed By: #### M G, CMP, CBC, PHOS ####[address] MCV (RBC) [Entitic vol] 86.8 fL Normal 83.5-101 [facility] Comment on above: Performed By: #### M G, CMP, CBC, PHOS ####[address] Mean Corpuscular HGB Conc 33.7 g/dL Normal 32.5-35.6 [facility] Comment on above: Performed By: #### M G, CMP, CBC, PHOS ####[place] [id number] [facility] Monocytes (Bld) [#/Vol] 1.9 10*3/uL High 0.0-0.8 [facility] Comment on above: Performed By: #### M G, CMP, CBC, PHOS ####[place] [id number] [facility] Monocytes/100 WBC (Bld) 14.2 % Normal . [facility] Comment on above: Result Comment: Abso lute monocytosis is commonly reactive in nature. However, if unexplained, recommend follow-up CBC in 3 months to evaluate for persistence. Performed By: #### M G, CMP, CBC, PHOS ####[place] [id number] [facility] Neutrophils (Bld) [#/Vol] 9.6 10*3/uL High 1.8-7.7 [facility] Comment on above: Performed By: #### M G, CMP, CBC, PHOS ####[place] [id number] [facility] Neutrophils/100 WBC (Bld) 73.2 % Normal . [facility] Comment on above: Performed By: #### M G, CMP, CBC, PHOS ####[place] [id number] [facility] NRBC% 0.0 /100{WBC} Normal 0-0.5 [facility] Comment on above: Performed By: #### M G, CMP, CBC, PHOS ####[place] [id number] [facility] Platelet mean volume (Bld) [Entitic vol] 7.7 fL Normal 6.6-10.1 [facility] Comment on above: Performed By: #### M G, CMP, CBC, PHOS ####[address] [address] [facility] Platelets (Bld) [#/Vol] 392 10*3/uL Normal 150-450 [facility] Comment on above: Performed By: #### M G, CMP, CBC, PHOS ####[address] RBC (Bld) [#/Vol] 3.12 10*6/uL Low 3.90-5.60 [facility] Comment on above: Performed By: #### M G, CMP, CBC, PHOS ####[address] WBC (Bld) [#/Vol] 13.1 10*3/uL High 4.1-10.5 [facility] Comment on above: Performed By: #### M G, CMP, CBC, PHOS ####[address] Comprehensive Metabolic Pane neil 08-07-2023 Albumin [Mass/Vol] 2.3 g/dL Low 3.5-5.7 [facility] Comment on above: Performed By: #### M G, CMP, CBC, PHOS ####[address] Anion gap [Moles/Vol] 13.3 mmol/L Normal 6.0-15.[address] [facility] Comment on above: Performed By: #### M G, CMP, CBC, PHOS ####[address] Calcium [Mass/Vol] 7.5 mg/dL Low 8.6-10.3 [facility] Comment on above: Performed By: #### M G, CMP, CBC, PHOS ####[address] Chloride [Moles/Vol] 92 mmol/L Low 98-107 [facility] Comment on above: Performed By: #### M G, CMP, CBC, PHOS ####[address] CO2 [Moles/Vol] 26.7 mmol/L Normal 21.0-31.0 [facility] Comment on above: Performed By: #### M G, CMP, CBC, PHOS ####[address] Creatinine [Mass/Vol] 2.60 mg/dL Significan t change up 0.70-1.30 [facility] Comment on above: Performed By: #### M G, CMP, CBC, PHOS ####[address] Creatinine Clr Calc Pharmacy 29.40 Normal [facility] Comment on above: Performed By: #### M G, CMP, CBC, PHOS ####[address] GFR/1.73 sq M.predicted MDRD (S/P/Bld) [Vol rate/Area] 25.565 mL/min/{1.73_m2} Normal [facility] Comment on above: Performed By: #### M G, CMP, CBC, PHOS ####[address] Glucose [Mass/Vol] 180 mg/dL High 70-100 [facility] Comment on above: Result Comment: [facility][note 3] Glucose Reference Range is dependent on time and content of last meal. Glucose of more than 200 mg/dL in a nonstressed, ambulatory subject supports the diagnosis of Diabetes Mellitus. ADA recommended reference range Performed By: #### M G, CMP, CBC, PHOS ####[address] Potassium [Moles/Vol] 4.0 mmol/L Normal 3.5-5.1 [facility] Comment on above: Performed By: #### M G, CMP, CBC, PHOS ####[address] Sodium [Moles/Vol] 128 mmol/L Low 136-145 [facility] Comment on above: Performed By: #### M G, CMP, CBC, PHOS ####[place] [address] [facility] Urea nitrogen [Mass/Vol] 31 mg/dL High 7-25 [facility] Comment on above: Performed By: #### M G, CMP, CBC, PHOS ####[facility] [place], [place] [id number] [facility] ECG 12 lead ECGon 08-07-2023 ECG 12 lead ECG Normal [facility] Glucose Poct Glucometerson 0 08-07-2023 Commemt1 Glu2: Cleaned Meter Normal [facility] Comment on above: Performed By: #### G LULS ####Point of Care testing, Commemt2 SLIDING SCALE COVERA Normal [facility] Comment on above: Result Comment: PERF ORMED BY:[address] [place], [place] [phone] MEDICAL DIRECTORJOSEPH GARCIA M.D. Performed By: #### G LULS ####Point of Care testing, Glucose [Mass/Vol] 209 mg/dL Normal [facility] Comment on above: Result Comment: [place] Glucose Reference Range is dependent on time and content of last meal. Glucose of more than 200 mg/dL in a nonstressed, ambulatory subject supports the diagnosis of Diabetes Mellitus. Performed By: #### G LULS ####Point of Care testing, Glucose [Mass/Vol] 226 mg/dL Normal [facility] Comment on above: Result Comment: [place] Glucose Reference Range is dependent on time and content of last meal. Glucose of more than 200 mg/dL in a nonstressed, ambulatory subject supports the diagnosis of Diabetes Mellitus.PERFORMED BY:[address] [place], [place] [phone] MEDICAL DIRECTORJOSEPH GARCIA M.D. Performed By: #### G LULS ####Point of Care testing, Glucose [Mass/Vol] 183 mg/dL Normal [facility] Comment on above: Result Comment: [place] om Glucose Reference Range is dependent on time and content of last meal. Glucose of more than 200 mg/dL in a nonstressed, ambulatory subject supports the diagnosis of Diabetes Mellitus.PERFORMED BY:[place] [address] [place], [place] [phone] MEDICAL DIRECTORJOSEPH GARCIA M.D. Performed By: #### G LULS ####Point of Care testing, Commemt1 Glu2: Cleaned Meter Normal [facility] Comment on above: Result Comment: PERF ORMED BY:[place] [address] [address] [place], [place] [phone] MEDICAL DIRECTORJOSEPH GARCIA M.D. Performed By: #### G LULS ####Point of Care testing, Glucose [Mass/Vol] 177 mg/dL Normal [facility] Comment on above: Result Comment: [facility][note 3] Glucose Reference Range is dependent on time and content of last meal. Glucose of more than 200 mg/dL in a nonstressed, ambulatory subject supports the diagnosis of Diabetes Mellitus. Performed By: #### G LULS ####Point of Care testing, Magnesium [Mass/volume] in S rene or PlasmaOrdered By: Mehul Garrett on 08-07-2023 Magnesium [Mass/Vol] 2.4 mg/dL Normal 1.9-2.7 [facility] Comment on above: Result Comment: PERF ORMED BY:[place] [address] [address] [place], [place] [phone] MEDICAL SILVIA GARCIA M.D. Performed By: #### M G, CMP, CBC, PHOS ####[place] [address] [place] [address] [facility] Phosphoruson 08-07-2023 Phosphate [Mass/Vol] 4.2 mg/dL Normal 2.5-4.5 [facility] Comment on above: Performed By: #### M G, CMP, CBC, PHOS ####[address] [address] [facility] Protein [Mass/volume] in Ser um or PlasmaOrdered By: Mehul Garrett on 08-07-2023 Protein [Mass/Vol] 6.2 g/dL Low 6.4-8.9 [facility] Comment on above: Performed By: #### M G, CMP, CBC, PHOS ####[place] [address] Serum globulin measurement b y calculation (mass/volume)Ordered By: Mehul Garrett on 08-07-2023 Globulin (S) [Mass/Vol] 3.9 g/dL Normal [facility] Comment on above: Performed By: #### M G, CMP, CBC, PHOS ####[address] Serum or plasma albumin/glob ulin mass ratioOrdered By: Mehul Garrett on 08-07-2023 Albumin/Globulin [Mass ratio] 0.6 {ratio} Normal [facility] Comment on above: Performed By: #### M G, CMP, CBC, PHOS ####[place] [address] XR chest 1V portableon 08-06 XR chest 1V portable Normal [facility] Ammonia [Moles/volume] in Pl asmaOrdered By: Mehul Garrett on 08-06-2023 Ammonia (P) [Moles/Vol] 39 umol/L High 11-35 [facility] Comment on above: Order Comment: Comme nt ok to add to morning labs if possible. Result Comment: PERF ORMED BY:[address] [place], [place] [phone] MEDICAL DIRECTORJOSEPH GARCIA M.D. Performed By: #### A MM ####[place] [id number] [facility] Arterial Blood Gason 024 ABG Base Excess -1.3 mmol/L Normal -3.0-3.0 [facility] Comment on above: Performed By: #### A BG ####Point of Care testing, ABG Frac Inspired O2 40 % Normal [facility] Comment on above: Performed By: #### A BG ####Point of Care testing, ABG Oxygen Content 6.3 mmol/L Low 6.6-9.7 [facility] Comment on above: Performed By: #### A BG ####Point of Care testing, ABG Oxygen Saturation 98.7 % Normal 95.0-100.0 [facility] Comment on above: Performed By: #### A BG ####Point of Care testing, ABG PCO2 38.2 mm[Hg] Normal 35.0-45.0 [facility] Comment on above: Performed By: #### A BG ####Point of Care testing, ABG PH 7.40 Normal 7.35-7.45 [facility] Comment on above: Performed By: #### A BG ####Point of Care testing, ABG PO2 131.8 mm[Hg] Off scale high 80.0-100.0 [facility] Comment on above: Performed By: #### A BG ####Point of Care testing, ABG TV 500 mL Normal [facility] Comment on above: Performed By: #### A BG ####Point of Care testing, CO2 [Moles/Vol] 24.4 mmol/L Normal 23.0-27.0 [facility] Comment on above: Performed By: #### A BG ####Point of Care testing, HCO3 (Bld) [Moles/Vol] 23.2 mmol/L Normal 23.0-29.0 [facility] Comment on above: Performed By: #### A BG ####Point of Care testing, Respiratory Critical Normal [facility] Comment on above: Result Comment: Crit ical Value called on: 08/06/2023 at 04:56PERFORMED BY:[facility] [place], [place] [phone] MEDICAL DIRECTORJOSEPH GARCIA M.D. Performed By: #### A BG ####Point of Care testing, Set Respiratory Rate 14 Normal [facility] Comment on above: Performed By: #### A BG ####Point of Care testing, VBG Draw Site Right Radial Normal [facility] Comment on above: Performed By: #### A BG ####Point of Care testing, Basic Metabolic Panelon 07-24 Anion gap [Moles/Vol] 16.7 mmol/L High 6.0-15.[address] [facility] Comment on above: Performed By: #### D IFF CBC, BMP ####[facility] [place] [address] [facility] Calcium [Mass/Vol] 7.6 mg/dL Low 8.6-10.3 [facility] Comment on above: Performed By: #### D IFF CBC, BMP ####[address] [place] [address] [facility] Chloride [Moles/Vol] 94 mmol/L Low 98-107 [facility] Comment on above: Performed By: #### D IFF CBC, BMP ####[place] [address] [place] [address] [facility] CO2 [Moles/Vol] 22.5 mmol/L Normal 21.0-31.0 [facility] Comment on above: Performed By: #### D IFF CBC, BMP ####[place] [address] [place] [address] [facility] Creatinine [Mass/Vol] 3.39 mg/dL High 0.70-1.30 [facility] Comment on above: Performed By: #### D IFF CBC, BMP ####[address] [address] [facility] Creatinine Clr Calc Pharmacy 22.55 Normal [facility] Comment on above: Result Comment: PERF ORMED BY:[address] [place], [place] [phone] MEDICAL SILVIA GARCIA M.D. Performed By: #### D IFF CBC, BMP ####[address] [address] [facility] GFR/1.73 sq M.predicted MDRD (S/P/Bld) [Vol rate/Area] 18.594 mL/min/{1.73_m2} Normal [facility] Comment on above: Performed By: #### D IFF CBC, BMP ####[place] [address] Glucose [Mass/Vol] 175 mg/dL High 70-100 [facility] Comment on above: Result Comment: [place] Glucose Reference Range is dependent on time and content of last meal. Glucose of more than 200 mg/dL in a nonstressed, ambulatory subject supports the diagnosis of Diabetes Mellitus. ADA recommended reference range Performed By: #### D IFF CBC, BMP ####[address] Potassium [Moles/Vol] 4.2 mmol/L Normal 3.5-5.1 [facility] Comment on above: Performed By: #### D IFF CBC, BMP ####[place] [address] Sodium [Moles/Vol] 129 mmol/L Low 136-145 [facility] Comment on above: Performed By: #### D IFF CBC, BMP ####[address] Urea nitrogen [Mass/Vol] 49 mg/dL High 7-25 [facility] Comment on above: Performed By: #### D IFF CBC, BMP ####[address] head/brain wo conon 08-05 CT head/brain wo con Normal [facility] Diff and CBCon 08-06-2023 Anisocytosis Ql (Bld) Slight Normal [facility] Comment on above: Performed By: #### D IFF CBC, BMP ####[address] Crenated RBC Slight Normal [facility] Comment on above: Performed By: #### D IFF CBC, BMP ####[address] Dohle Bodies Slight Normal [facility] Comment on above: Performed By: #### D IFF CBC, BMP ####[address] Erythrocyte distribution width (RBC) [Ratio] 17.9 % High 12.0-14.8 [facility] Comment on above: Performed By: #### D IFF CBC, BMP ####[address] Hematocrit (Bld) [Volume fraction] 27.5 % Low 38.8-50.0 [facility] Comment on above: Performed By: #### D IFF CBC, BMP ####[address] Hemoglobin (Bld) [Mass/Vol] 9.3 g/dL Low 13.0-17.0 [facility] Comment on above: Performed By: #### D IFF CBC, BMP ####[address] Lymphocytes/100 WBC (Bld) 17 % Low 18-42 [facility] Comment on above: Performed By: #### D IFF CBC, BMP ####[address] MCH (RBC) [Entitic mass] 29.4 pg Normal 27.5-35.2 [facility] Comment on above: Performed By: #### D IFF CBC, BMP ####[address] MCV (RBC) [Entitic vol] 86.7 fL Normal 83.5-101 [facility] Comment on above: Performed By: #### D IFF CBC, BMP ####[address] Mean Corpuscular HGB Conc 33.9 g/dL Normal 32.5-35.6 [facility] Comment on above: Performed By: #### D IFF CBC, BMP ####[address] Monocytes/100 WBC (Bld) 7 % Normal 2-11 [facility] Comment on above: Performed By: #### D IFF CBC, BMP ####[place] [id number] [facility] Myelocytes 2 % High 0-0 [facility] Comment on above: Performed By: #### D IFF CBC, BMP ####[address] [place] [address] [facility] Platelet Estimate Normal Normal Normal [facility] Comment on above: Performed By: #### D IFF CBC, BMP ####[address] [address] [facility] Platelet mean volume (Bld) [Entitic vol] 7.7 fL Normal 6.6-10.1 [facility] Comment on above: Result Comment: PERF ORMED BY:[place] [address] [address] [place], [place] [phone] MEDICAL DIRECTORJOSEPH GARCIA M.D. Performed By: #### D IFF CBC, BMP ####[address] [address] [facility] Platelet Morphology Normal Normal Normal [facility] Comment on above: Result Comment: PERF ORMED BY:[address] LOYAT[address] [place], [place] [phone] MEDICAL DIRECTORJOSEPH GARCIA M.D. Performed By: #### D IFF CBC, BMP ####[address] [address] [facility] Platelets (Bld) [#/Vol] 324 10*3/uL Normal 150-450 [facility] Comment on above: Performed By: #### D IFF CBC, BMP ####[address] [address] [facility] Poikilocytosis Slight Normal [facility] Comment on above: Performed By: #### D IFF CBC, BMP ####[address] [place] [address] [facility] Polychromasia Slight Normal [facility] Comment on above: Performed By: #### D IFF CBC, BMP ####[address] [address] [facility] RBC (Bld) [#/Vol] 3.17 10*6/uL Low 3.90-5.60 [facility] Comment on above: Performed By: #### D IFF CBC, BMP ####[address] [place] [address] [facility] Schistocytes Slight Normal [facility] Comment on above: Performed By: #### D IFF CBC, BMP ####[facility] [place] [address] [facility] Segmented neutrophils/100 WBC (Bld) 73 % High 50-70 [facility] Comment on above: Performed By: #### D IFF CBC, BMP ####[address] [place] [address] [facility] WBC (Bld) [#/Vol] 12.5 10*3/uL High 4.1-10.5 [facility] Comment on above: Performed By: #### D IFF CBC, BMP ####[address] [place] [address] [facility] Dohle bodies detectionOrdere d By: Geo Thomas on 08-06-2023 Dohle body LM Ql (Bld) Slight [facility] ECG 12 lead ECGon 08-06-2023 ECG 12 lead ECG Normal [facility] Glucose Poct Glucometerson 0 08-06-2023 Glucose [Mass/Vol] 129 mg/dL Normal [facility] Comment on above: Result Comment: [facility][note 3] Glucose Reference Range is dependent on time and content of last meal. Glucose of more than 200 mg/dL in a nonstressed, ambulatory subject supports the diagnosis of Diabetes Mellitus.PERFORMED BY:[address] [place], [place] [phone] MEDICAL DIRECTORJOSEPH GARCIA M.D. Performed By: #### G VALERY ####Point of Care testing, Glucose [Mass/Vol] 166 mg/dL Normal [facility] Comment on above: Result Comment: [facility][note 3] Glucose Reference Range is dependent on time and content of last meal. Glucose of more than 200 mg/dL in a nonstressed, ambulatory subject supports the diagnosis of Diabetes Mellitus.PERFORMED BY:[facility] [place], [place] [phone] MEDICAL DIRECTORJOSEPH GARCIA M.D. Performed By: #### G LUANURAG ####Point of Care testing, Glucose [Mass/Vol] 184 mg/dL Normal [facility] Comment on above: Result Comment: [facility][note 3] Glucose Reference Range is dependent on time and content of last meal. Glucose of more than 200 mg/dL in a nonstressed, ambulatory subject supports the diagnosis of Diabetes Mellitus.PERFORMED BY:[facility] LATamikoTracyLUZ [place], [place] [phone] MEDICAL DIRECTORJOSEPH GARCIA M.D. Performed By: #### G LUANURAG ####Point of Care testing, Peripheral white blood cell differential % bands, microscopic examOrdered By: Geo Thomas on 08-06-2023 Band form neutrophils/100 WBC (Bld) 2 % Normal 0-5 [facility] Comment on above: Performed By: #### D IFF CBC, BMP ####[facility] [address] [place] [address] [facility] XR chest 1V portableon 08-05 XR chest 1V portable Normal [facility] Arterial Blood Gason 024 ABG Base Excess 0.6 mmol/L Normal -3.0-3.0 [facility] Comment on above: Performed By: #### A BG ####Point of Care testing, ABG Frac Inspired O2 35 % Normal [facility] Comment on above: Performed By: #### A BG ####Point of Care testing, ABG Oxygen Content 6.4 mmol/L Low 6.6-9.7 [facility] Comment on above: Performed By: #### A BG ####Point of Care testing, ABG Oxygen Saturation 94.7 % Low 95.0-100.0 [facility] Comment on above: Performed By: #### A BG ####Point of Care testing, ABG PCO2 42.8 mm[Hg] Normal 35.0-45.0 [facility] Comment on above: Performed By: #### A BG ####Point of Care testing, ABG PH 7.40 Normal 7.35-7.45 [facility] Comment on above: Performed By: #### A BG ####Point of Care testing, ABG PO2 75.9 mm[Hg] Low 80.0-100.0 [facility] Comment on above: Performed By: #### A BG ####Point of Care testing, ABG TV 500 mL Normal [facility] Comment on above: Performed By: #### A BG ####Point of Care testing, CO2 [Moles/Vol] 26.9 mmol/L Normal 23.0-27.0 [facility] Comment on above: Performed By: #### A BG ####Point of Care testing, HCO3 (Bld) [Moles/Vol] 25.6 mmol/L Normal 23.0-29.0 [facility] Comment on above: Performed By: #### A BG ####Point of Care testing, Respiratory Critical Normal [facility] Comment on above: Result Comment: Crit ical Value called on: 08/05/2023 at 04:21PERFORMED BY:[address] [place], [place] [id number] MEDICAL DIRECTORJOSEPH GARCIA M.D. Performed By: #### A BG ####Point of Care testing, Set Respiratory Rate 14 Normal [facility] Comment on above: Performed By: #### A BG ####Point of Care testing, VBG Draw Site Right Radial Normal [facility] Comment on above: Performed By: #### A BG ####Point of Care testing, Basic Metabolic Panelon 07-24 Anion gap [Moles/Vol] 18.6 mmol/L High 6.0-15.0 [facility] Comment on above: Performed By: #### C BC, BMP ####[facility] [place] [address] [facility] Calcium [Mass/Vol] 7.9 mg/dL Low 8.6-10.3 [facility] Comment on above: Performed By: #### C BC, BMP ####[place] [id number] [facility] Chloride [Moles/Vol] 94 mmol/L Low 98-107 [facility] Comment on above: Performed By: #### C BC, BMP ####[place] [id number] [facility] CO2 [Moles/Vol] 21.6 mmol/L Normal 21.0-31.0 [facility] Comment on above: Performed By: #### C BC, BMP ####[place] [id number] [facility] Creatinine [Mass/Vol] 2.90 mg/dL Significan t change up 0.70-1.30 [facility] Comment on above: Performed By: #### C BC, BMP ####[place] [id number] [facility] Creatinine Clr Calc Pharmacy 26.36 Normal [facility] Comment on above: Result Comment: PERF ORMED BY:[address] [place], [place] [phone] MEDICAL DIRECTORJOSEPH GARCIA M.D. Performed By: #### C BC, BMP ####[address] [address] [facility] GFR/1.73 sq M.predicted MDRD (S/P/Bld) [Vol rate/Area] 22.425 mL/min/{1.73_m2} Normal [facility] Comment on above: Performed By: #### C BC, BMP ####[place] [id number] [facility] Glucose [Mass/Vol] 123 mg/dL High 70-100 [facility] Comment on above: Result Comment: [place] Glucose Reference Range is dependent on time and content of last meal. Glucose of more than 200 mg/dL in a nonstressed, ambulatory subject supports the diagnosis of Diabetes Mellitus. ADA recommended reference range Performed By: #### C BC, BMP ####[place] [id number] [facility] Potassium [Moles/Vol] 4.2 mmol/L Normal 3.5-5.1 [facility] Comment on above: Performed By: #### C BC, BMP ####[place] [id number] [facility] Sodium [Moles/Vol] 130 mmol/L Low 136-145 [facility] Comment on above: Performed By: #### C BC, BMP ####[address] Urea nitrogen [Mass/Vol] 36 mg/dL High 7-25 [facility] Comment on above: Performed By: #### C BC, BMP ####[place] [id number] [facility] Complete Blood Count Auto Di ffon 08-05-2023 Basophils (Bld) [#/Vol] 0.1 10*3/uL Normal 0.0-0.2 [facility] Comment on above: Result Comment: PERF ORMED BY:[address] [place]amikoTracyLUZ [place], [place] [phone] MEDICAL DIRECTORJOSEPH GARCIA M.D. Performed By: #### C BC, BMP ####[place] [id number] [facility] Basophils/100 WBC (Bld) 0.6 % Normal . [facility] Comment on above: Performed By: #### C BC, BMP ####[place] [id number] [facility] Eosinophils (Bld) [#/Vol] 0.0 10*3/uL Normal 0.0-0.45 [facility] Comment on above: Performed By: #### C BC, BMP ####[place] [id number] [facility] Eosinophils/100 WBC (Bld) 0.2 % Normal . [facility] Comment on above: Performed By: #### C BC, BMP ####[address] Erythrocyte distribution width (RBC) [Ratio] 18.0 % High 12.0-14.8 [facility] Comment on above: Performed By: #### C BC, BMP ####[address] Hematocrit (Bld) [Volume fraction] 27.8 % Low 38.8-50.0 [facility] Comment on above: Performed By: #### C BC, BMP ####[address] Hemoglobin (Bld) [Mass/Vol] 9.9 g/dL Low 13.0-17.0 [facility] Comment on above: Performed By: #### C BC, BMP ####[address] Lymphocytes (Bld) [#/Vol] 1.3 10*3/uL Normal 1.00-4.8 [facility] Comment on above: Performed By: #### C BC, BMP ####[address] Lymphocytes/100 WBC (Bld) 13.6 % Normal . [facility] Comment on above: Performed By: #### C BC, BMP ####[address] MCH (RBC) [Entitic mass] 31.2 pg Normal 27.5-35.2 [facility] Comment on above: Performed By: #### C BC, BMP ####[address] MCV (RBC) [Entitic vol] 87.6 fL Normal 83.5-101 [facility] Comment on above: Performed By: #### C BC, BMP ####[address] Mean Corpuscular HGB Conc 35.6 g/dL Normal 32.5-35.6 [facility] Comment on above: Performed By: #### C BC, BMP ####[address] Monocytes (Bld) [#/Vol] 1.8 10*3/uL High 0.0-0.8 [facility] Comment on above: Performed By: #### C BC, BMP ####[place] [id number] [facility] Monocytes/100 WBC (Bld) 18.0 % Normal . [facility] Comment on above: Result Comment: Abso lute monocytosis is commonly reactive in nature. However, if unexplained, recommend follow-up CBC in 3 months to evaluate for persistence. Performed By: #### C BC, BMP ####[address] Neutrophils (Bld) [#/Vol] 6.6 10*3/uL Normal 1.8-7.7 [facility] Comment on above: Performed By: #### C BC, BMP ####[address] Neutrophils/100 WBC (Bld) 67.6 % Normal . [facility] Comment on above: Performed By: #### C BC, BMP ####[address] NRBC% 0.2 /100{WBC} Normal 0-0.5 [facility] Comment on above: Performed By: #### C BC, BMP ####[address] Platelet mean volume (Bld) [Entitic vol] 7.7 fL Normal 6.6-10.1 [facility] Comment on above: Performed By: #### C BC, BMP ####[place] [id number] [facility] Platelets (Bld) [#/Vol] 344 10*3/uL Normal 150-450 [facility] Comment on above: Performed By: #### C BC, BMP ####[address] RBC (Bld) [#/Vol] 3.17 10*6/uL Low 3.90-5.60 [facility] Comment on above: Performed By: #### C HIGINIO, BMP ####[address] [address] [facility] WBC (Bld) [#/Vol] 9.7 10*3/uL Normal 4.1-10.5 [facility] Comment on above: Performed By: #### C HIGINIO, BMP ####[address] [address] [facility] ECG 12 lead ECGon 08-05-2023 ECG 12 lead ECG Normal [facility] ECG 12 lead ECG Normal [facility] Glucose Poct Glucometerson 0 08-05-2023 Commemt1 Glu2: Cleaned Meter Normal [facility] Comment on above: Result Comment: PERF ORMED BY:[address] [place], [place] [phone] MEDICAL DIRECTORJOSEPH GARCIA M.D. Performed By: #### G LULS ####Point of Care testing, Glucose [Mass/Vol] 213 mg/dL Normal [facility] Comment on above: Result Comment: [place] Glucose Reference Range is dependent on time and content of last meal. Glucose of more than 200 mg/dL in a nonstressed, ambulatory subject supports the diagnosis of Diabetes Mellitus. Performed By: #### G LULS ####Point of Care testing, Glucose [Mass/Vol] 199 mg/dL Normal [facility] Comment on above: Result Comment: [place] Glucose Reference Range is dependent on time and content of last meal. Glucose of more than 200 mg/dL in a nonstressed, ambulatory subject supports the diagnosis of Diabetes Mellitus.PERFORMED BY:[address] [place], [place] [id number] MEDICAL DIRECTORJOSEPH GARCIA M.D. Performed By: #### G LULS ####Point of Care testing, Glucose [Mass/Vol] 172 mg/dL Normal [facility] Comment on above: Result Comment: [facility][note 3] Glucose Reference Range is dependent on time and content of last meal. Glucose of more than 200 mg/dL in a nonstressed, ambulatory subject supports the diagnosis of Diabetes Mellitus.PERFORMED BY:[address] [place], [place] [phone] MEDICAL DIRECTORJOSEPH GARCIA M.D. Performed By: #### G VALERY ####Point of Care testing, Triglyceride [Mass/volume] i n Serum or PlasmaOrdered By: Orestes Mejia on 08-05-2023 Triglyceride [Mass/Vol] 873 mg/dL High 35-149 [facility] Comment on above: If the triglyceride result is greater than 400, LDLC and related calculations cannot be calculated and resulted.TRIG ATP III CLASSIFICATIONTRIG less than 150 mg/dL NormalTRIG 150-199 mg/dL Borderline highTRIG 200-500 mg/dL High TRIG greater than 500 mg/dL Very highStandard traceable to the Center for Disease Conrtrol and Prevention (CDC) test method. Result Comment: TRIG ATP III CLASSIFICATION TRIG less than 150 mg/dL Normal TRIG 150-199 mg/dL Borderline high TRIG 200-500 mg/dL High TRIG greater than 500 mg/dL Very high Standard traceable to the Center for Disease Conrtrol and Prevention (CDC) test method. If the triglyceride result is greater than 400, LDLC and related calculations cannot be calculated and resulted.PERFORMED BY:[place] [address] [place], [place] [phone] MEDICAL DIRECTORJOSEPH GARCIA M.D. Performed By: #### T RIG ####[address] [address] [facility] XR chest 1V portableon 08-04 XR chest 1V portable Normal [facility] SUSANA Reflex Testingon 024 SUSANA with Reflex Positive Critically abnormal Negative [facility] Comment on above: Performed By: #### A NCA PROF, SUSANA RFX ADD ON, GB ####[facility] , Anti-Centromere B Antibodies <0.2 Normal 0.0-0.9 [facility] Comment on above: Performed By: #### A NCA PROF, SUSANA RFX ADD ON, GB ####[facility] , Anti-dsDNA(DBL)Ab 7 Normal 0-9 [facility] Comment on above: Result Comment: Nega tive <5 Equivocal 5 - 9 Positive >9 Performed By: #### A NCA PROF, SUSANA RFX ADD ON, GB ####[facility] , Anti-SLATE SPLITTER 6.3 High 0.0-0.9 [facility] Comment on above: Performed By: #### A NCA PROF, SUSANA RFX ADD ON, GB ####[facility] , Anti-Juan Antibodies <0.2 Normal 0.0-0.9 [facility] Comment on above: Performed By: #### A NCA PROF, SUSANA RFX ADD ON, GB ####[facility] , Chromatin Antibody <0.2 Normal 0.0-0.9 [facility] Comment on above: Performed By: #### A NCA PROF, SUSANA RFX ADD ON, GB ####[facility] , ANA MARÍA-1 Antibody <0.2 Normal 0.0-0.9 [facility] Comment on above: Performed By: #### A NCA PROF, SUSANA RFX ADD ON, GB ####[facility] , Scleroderma 70 Antibodies <0.2 Normal 0.0-0.9 [facility] Comment on above: Performed By: #### A NCA PROF, SUSANA RFX ADD ON, GB ####[facility] , See Below: Normal . [facility] Comment on above: Result Comment: Auto antibody Disease Association Condition Frequency --------- Antinuclear Antibody, SLE, mixed connective Direct (SUSANA-D) tissue diseases --------- dsDNA SLE 40 - 60% --------- Chromatin Drug induced SLE 90% SLE 48 - 97% --------- SSA (Ro) SLE 25 - 35% Sjogren's Syndrome 40 - 70% Lupus 100% --------- SSB (La) SLE 10% Sjogren's Syndrome 30% --------- Sm (anti-Juan) SLE 15 - 30% --------- SLATE SPLITTER Mixed Connective Tissue Disease 95% (U1 nRNP, SLE 30 - 50% anti-ribonucleoprotein) Polymyositis and/or Dermatomyositis 20% --------- Scl-70 (antiDNA Scleroderma (diffuse) 20 - 35% topoisomerase) Crest 13% --------- Ana María-1 Polymyositis and/or Dermatomyositis 20 - 40% --------- Centromere B Scleroderma - Crest variant 80% Performed at: [facility] [address] [id number] Cost And Sales Record Supervisor: Alvaro Verde PhD, Phone: [phone] Performed By: #### A NCA PROF, SUSANA RFX ADD ON, GB ####[facility] , SS-A/Ro Sjogrens Antibody <0.2 Normal 0.0-0.9 [facility] Comment on above: Performed By: #### A NCA PROF, SUSANA RFX ADD ON, GB ####[facility] , SS-B/La Sjogrens Antibody <0.2 Normal 0.0-0.9 [facility] Comment on above: Performed By: #### A NCA PROF, SUSANA RFX ADD ON, GB ####[facility] , ANCA Profile (ANCA+MPO+PR3)o n 08-04-2023 Antimyeloperoxidase (MPO) Abs <0.2 Normal 0.0-0.9 [facility] Comment on above: Performed By: #### A NCA PROF, SUSANA RFX ADD ON, GB ####[facility] , Atypical pANCA <1:20 Normal Neg:<1:20 [facility] Comment on above: Result Comment: Plea se Note: Specimen is lipemic. The atypical pANCA pattern has been observed in a significant percentage of patients with ulcerative colitis, primary sclerosing cholangitis and autoimmune hepatitis. Performed By: #### A NCA PROF, SUSANA RFX ADD ON, GB ####[facility] , Cytoplasmic (C-ANCA) <1:20 Normal Neg:<1:20 [facility] Comment on above: Result Comment: Plea se Note: Specimen is lipemic. Performed By: #### A NCA PROF, SUSANA RFX ADD ON, GB ####[facility] , Perinuclear (P-ANCA) <1:20 Normal Neg:<1:20 [facility] Comment on above: Result Comment: Plea se Note: Specimen is lipemic. The presence of positive fluorescence exhibiting P-ANCA or C-ANCA patterns alone is not specific for the diagnosis of Ashlie's Granulomatosis (WG) or microscopic polyangiitis. Decisions about treatment should not be based solely on ANCA IFA results. The International ANCA Group Consensus recommends follow up testing of positive sera with both MT- 3 and MPO-ANCA enzyme immunoassays. As many as 5% serum samples are positive only by EIA. Ref. AM J Clin Pathol 1999;111:507-513. Performed By: #### A NCA PROF, SUSANA RFX ADD ON, GB ####[facility] , Proteinase 3 (PR3) Antibodies <0.2 Normal 0.0-0.9 [facility] Comment on above: Result Comment: PERF ORMED BY:[address] [place], [place] [phone] MEDICAL DIRECTORJOSEPH GARCIA M.D. Performed By: #### A NCA PROF, SUSANA RFX ADD ON, GB ####[facility] , Anti-Glomerular Basement Mem bon 08-04-2023 Anti-Glomerular Basement Memb <0.2 Normal 0.0-0.9 [facility] Comment on above: Result Comment: Perf ormed at: - [address] [id number] Cost And Sales Record Supervisor: Sj Petersen MD, Phone: [phone] Performed at: [facility] [address] [id number] Cost And Sales Record Supervisor: Alvaro Verde PhD, Phone: [phone] Performed By: #### A STEWART JERONIMO, SUSANA RFX ADD ON, GB ####[facility] , Arterial Blood Gason 024 ABG Base Excess -4.0 mmol/L Low -3.0-3.0 [facility] Comment on above: Performed By: #### A BG ####Point of Care testing, ABG Frac Inspired O2 35 % Normal [facility] Comment on above: Performed By: #### A BG ####Point of Care testing, ABG Oxygen Content 6.0 mmol/L Low 6.6-9.7 [facility] Comment on above: Performed By: #### A BG ####Point of Care testing, ABG Oxygen Saturation 92.1 % Low 95.0-100.0 [facility] Comment on above: Performed By: #### A BG ####Point of Care testing, ABG PCO2 36.5 mm[Hg] Normal 35.0-45.0 [facility] Comment on above: Performed By: #### A BG ####Point of Care testing, ABG PEEP 5 Normal [facility] Comment on above: Performed By: #### A BG ####Point of Care testing, ABG PH 7.37 Normal 7.35-7.45 [facility] Comment on above: Performed By: #### A BG ####Point of Care testing, ABG PO2 66.4 mm[Hg] Low 80.0-100.0 [facility] Comment on above: Performed By: #### A BG ####Point of Care testing, ABG TV 500 mL Normal [facility] Comment on above: Performed By: #### A BG ####Point of Care testing, CO2 [Moles/Vol] 21.8 mmol/L Low 23.0-27.0 [facility] Comment on above: Performed By: #### A BG ####Point of Care testing, HCO3 (Bld) [Moles/Vol] 20.7 mmol/L Low 23.0-29.0 [facility] Comment on above: Performed By: #### A BG ####Point of Care testing, Respiratory Critical Normal [facility] Comment on above: Result Comment: Crit ical Value called on: 08/04/2023 at 05:23PERFORMED BY:[place] [address] [address] N[place], [place] [phone] MEDICAL DIRECTORJOSEPH GARCIA M.D. Performed By: #### A BG ####Point of Care testing, Set Respiratory Rate 14 Normal [facility] Comment on above: Performed By: #### A BG ####Point of Care testing, VBG Draw Site Right Radial Normal [facility] Comment on above: Performed By: #### A BG ####Point of Care testing, Atypical perinuclear antineu trophil cytoplasmic antibodies measurementOrdered By: Sanket Hammer on 08-04-2023 Neutrophil cytoplasmic Ab.perinuclear.atypica l IF (S) [Titer] <1:20 titer Neg:<1:20 [facility] Comment on above: Please Note: Specime n is lipemic.The atypical pANCA pattern has been observed in asignificant percentage of patients with ulcerative colitis,primary sclerosing cholangitis and autoimmune hepatitis. Basic Metabolic Panelon 07-24 Anion gap [Moles/Vol] Not performed Normal 6.0-15.0 [facility] Comment on above: Performed By: #### C BC, BMP ####[address] [address] [facility] Calcium [Mass/Vol] 7.6 mg/dL Low 8.6-10.3 [facility] Comment on above: Performed By: #### C BC, BMP ####[address] [place] [address] [place] Chloride [Moles/Vol] 93 mmol/L Low 98-107 [facility] Comment on above: Performed By: #### C BC, BMP ####[address] [place] [address] [facility] CO2 [Moles/Vol] 20.3 mmol/L Low 21.0-31.0 [facility] Comment on above: Performed By: #### C BC, BMP ####[address] [place] [address] [facility] Creatinine [Mass/Vol] 3.43 mg/dL High 0.70-1.30 [facility] Comment on above: Performed By: #### C BC, BMP ####[address] [place] [address] [facility] Creatinine Clr Calc Pharmacy 22.85 Normal [facility] Comment on above: Result Comment: PERF ORMED BY:[address] LATamikoTracyLUZ [place], [place] [phone] MEDICAL DIRECTORJOSEPH GARCIA M.D. Performed By: #### C BC, BMP ####[address] [address] [facility] GFR/1.73 sq M.predicted MDRD (S/P/Bld) [Vol rate/Area] 18.334 mL/min/{1.73_m2} Normal [facility] Comment on above: Performed By: #### C BC, BMP ####[address] [address] [facility] Glucose [Mass/Vol] 131 mg/dL High 70-100 [facility] Comment on above: Result Comment: [facility][note 3] Glucose Reference Range is dependent on time and content of last meal. Glucose of more than 200 mg/dL in a nonstressed, ambulatory subject supports the diagnosis of Diabetes Mellitus. ADA recommended reference range Performed By: #### C BC, BMP ####[address] [address] [facility] Potassium Normal 3.5-5.1 [facility] Comment on above: Result Comment: Spec imen hemolyzed, redraw requested Performed By: #### C BC, BMP ####[address] [place] [address] [facility] Sodium [Moles/Vol] 127 mmol/L Low 136-145 [facility] Comment on above: Performed By: #### C BC, BMP ####[address] Urea nitrogen [Mass/Vol] 51 mg/dL High 7-25 [facility] Comment on above: Performed By: #### C HIGINIO, BMP ####[address] Complete Blood Count Auto Di ffon 08-04-2023 Basophils (Bld) [#/Vol] 0.1 10*3/uL Normal 0.0-0.2 [facility] Comment on above: Result Comment: PERF ORMED BY:[address] [place], [place] [phone] MEDICAL DIRECTORJOSEPH GARCIA M.D. Performed By: #### C HIGINIO, BMP ####[address] Basophils/100 WBC (Bld) 0.9 % Normal . [facility] Comment on above: Performed By: #### C HIGINIO, BMP ####[address] Eosinophils (Bld) [#/Vol] 0.0 10*3/uL Normal 0.0-0.45 [facility] Comment on above: Performed By: #### C HIGINIO, BMP ####[address] Eosinophils/100 WBC (Bld) 0.3 % Normal . [facility] Comment on above: Performed By: #### C HIGINIO, BMP ####[address] Erythrocyte distribution width (RBC) [Ratio] 18.4 % High 12.0-14.8 [facility] Comment on above: Performed By: #### C HIGINIO, BMP ####[address] Hematocrit (Bld) [Volume fraction] 29.4 % Low 38.8-50.0 [facility] Comment on above: Performed By: #### C HIGINIO, BMP ####[address] [address] [place] Hemoglobin (Bld) [Mass/Vol] 10.3 g/dL Low 13.0-17.0 [facility] Comment on above: Performed By: #### C HIGINIO, BMP ####[address] Lymphocytes (Bld) [#/Vol] 0.9 10*3/uL Low 1.00-4.8 [facility] Comment on above: Performed By: #### C HIGINIO, BMP ####[address] Lymphocytes/100 WBC (Bld) 8.9 % Normal . [facility] Comment on above: Performed By: #### C HIGINIO, BMP ####[address] MCH (RBC) [Entitic mass] 30.9 pg Normal 27.5-35.2 [facility] Comment on above: Performed By: #### C HIGINIO, BMP ####[address] MCV (RBC) [Entitic vol] 87.8 fL Normal 83.5-101 [facility] Comment on above: Performed By: #### C HIGINIO, BMP ####[address] Mean Corpuscular HGB Conc 35.2 g/dL Normal 32.5-35.6 [facility] Comment on above: Performed By: #### C HIGINIO, BMP ####[address] Monocytes (Bld) [#/Vol] 1.8 10*3/uL High 0.0-0.8 [facility] Comment on above: Performed By: #### C HIGINIO, BMP ####[address] Monocytes/100 WBC (Bld) 17.9 % Normal . [facility] Comment on above: Performed By: #### C HIGINIO, BMP ####[address] [place] [address] [place] Neutrophils (Bld) [#/Vol] 7.4 10*3/uL Normal 1.8-7.7 [facility] Comment on above: Performed By: #### C HIGINIO, BMP ####[address] Neutrophils/100 WBC (Bld) 72.0 % Normal . [facility] Comment on above: Performed By: #### C HIGINIO, BMP ####[place] [id number] [facility] NRBC% 0.1 /100{WBC} Normal 0-0.5 [facility] Comment on above: Performed By: #### C HIGINIO, BMP ####[address] Platelet mean volume (Bld) [Entitic vol] 8.0 fL Normal 6.6-10.1 [facility] Comment on above: Performed By: #### C HIGINIO, BMP ####[address] Platelets (Bld) [#/Vol] 335 10*3/uL Normal 150-450 [facility] Comment on above: Performed By: #### C HIGINIO, BMP ####[address] RBC (Bld) [#/Vol] 3.35 10*6/uL Low 3.90-5.60 [facility] Comment on above: Performed By: #### C HIGINIO, BMP ####[address] WBC (Bld) [#/Vol] 10.3 10*3/uL Normal 4.1-10.5 [facility] Comment on above: Performed By: #### C HIGINIO, BMP ####[place] [id number] [facility] DNA double strand Ab [Units/ volume] in SerumOrdered By: Sanket Hammer on 08-04-2023 DNA double strand Ab Qn (S) 7 [IU]/mL 0-9 [facility] Comment on above: Negative <5 Equivoca l 5 - 9 Positive >9 ECG 12 lead ECGon 08-04-2023 ECG 12 lead ECG Normal [facility] Glomerular basement membrane Ab [Units/volume] in Serum by ImmunoassayOrdered By: Sanket Hammer on 08-04-2023 Glomerular basement membrane Ab IA Qn (S) <0.2 units 0.0-0.9 [facility] Comment on above: Performed at: BN - [facility] [address] [id number] Director: Sj Petersen MD, Phone: [phone] at: CB - [facility] [address] [id number] Director: Alvaro Verde PhD, Phone: [phone] Glucose Poct Glucometerson 0 08-04-2023 Commemt1 Glu2: Cleaned Meter Normal [facility] Comment on above: Result Comment: PERF ORMED BY:[place] [address] [address] [place], [place] [phone] MEDICAL DIRECTORJOSEPH GARCIA M.D. Performed By: #### G LULS ####Point of Care testing, Glucose [Mass/Vol] 125 mg/dL Normal [facility] Comment on above: Result Comment: [facility][note 3] Glucose Reference Range is dependent on time and content of last meal. Glucose of more than 200 mg/dL in a nonstressed, ambulatory subject supports the diagnosis of Diabetes Mellitus. Performed By: #### G LULS ####Point of Care testing, Commemt1 Glu2: Cleaned Meter Normal [facility] Comment on above: Result Comment: PERF ORMED BY:[address] [address] [address] [place], [place] [phone] MEDICAL DIRECTORJOSEPH GARCIA M.D. Performed By: #### G LULS ####Point of Care testing, Glucose [Mass/Vol] 149 mg/dL Normal [facility] Comment on above: Result Comment: [facility][note 3] Glucose Reference Range is dependent on time and content of last meal. Glucose of more than 200 mg/dL in a nonstressed, ambulatory subject supports the diagnosis of Diabetes Mellitus. Performed By: #### G LULS ####Point of Care testing, Commemt1 Glu2: Cleaned Meter Normal [facility] Comment on above: Result Comment: PERF ORMED BY:[facility] [place] [phone] MEDICAL DIRECTORJOSEPH GARCIA M.D. Performed By: #### G LULS ####Point of Care testing, Glucose [Mass/Vol] 159 mg/dL Normal [facility] Comment on above: Result Comment: [place] Glucose Reference Range is dependent on time and content of last meal. Glucose of more than 200 mg/dL in a nonstressed, ambulatory subject supports the diagnosis of Diabetes Mellitus. Performed By: #### G LULS ####Point of Care testing, Myeloperoxidase Ab [Units/vo lume] in Serum by ImmunoassayOrdered By: Sanket Hammer on 08-04-2023 Myeloperoxidase Ab IA Qn (S) <0.2 units 0.0-0.9 [facility] No Panel InformationOrdered By: Sanket Hammer on 08-04-2023 Anti-Nuclear Antibody Interpret See comment . [facility] Comment on above: Autoantibody Disease Association -------- Condition Frequency ---------Antinuclear Antibody, SLE, mixed connectiveDirect (SUSANA-D) tissue diseases ---------dsDNA SLE 40 - 60% ---------Chromatin Drug induced SLE 90% SLE 48 - 97% ---------SSA (Ro) SLE 25 - 35% Sjogren's Syndrome 40 - 70% Lupus 100% ---------SSB (La) SLE 10% Sjogren's Syndrome 30% ---------Sm (anti-Juan) SLE 15 - 30% ---------SLATE SPLITTER Mixed Connective Tissue Disease 95%(U1 nRNP, SLE 30 - 50%anti-ribonucleoprotein) Polymyositis and/or Dermatomyositis 20% ---------Scl-70 (antiDNA Scleroderma (diffuse) 20 - 35%topoisomerase) Crest 13% ---------Ana María-1 Polymyositis and/or Dermatomyositis 20 - 40% ---------Centromere B Scleroderma - Crest variant 80%Performed at: - [facility] [id number] [place], [place] [id number] Director: Alvaro Verde PhD, Phone: [phone] Perinuclear ANCA (p-ANCA) Antibody <1:20 titer Neg:<1:20 [facility] Comment on above: Please Note: Specime n is lipemic.The presence of positive fluorescence exhibiting P-ANCA orC-ANCA patterns alone is not specific for the diagnosis ofWegener's Granulomatosis (WG) or microscopic polyangiitis.Decisions about treatment should not be based solely onANCA IFA results. The International ANCA Group Consensusrecommends follow up testing of positive sera with both MT-3 and MPO-ANCA enzyme immunoassays. As many as 5% serumsamples are positive only by EIA. Ref. AM J Clin Dudzxl2186;111:507-513. SLATE SPLITTER Antibody 6.3 AI 0.0-0.9 [facility] 6.3 AI 0.0-0.9 [facility] <1:20 titer Neg:<1:20 [facility] See comment . [facility] Proteinase 3 Ab [Units/volum e] in Serum by ImmunoassayOrdered By: Sanket Hammer on 08-04-2023 Proteinase 3 Ab IA Qn (S) <0.2 units 0.0-0.9 [facility] Redraw Potassiumon 4 Potassium [Moles/Vol] 4.4 mmol/L Normal 3.5-5.1 [facility] Comment on above: Order Comment: Pleas e draw with a syringe, remove the cap and fill a gold top, then deliver to the lab. MLG Result Comment: PERF ORMED BY:[address] [address] [address] [place], [place] [phone] MEDICAL DIRECTORJOSEPH GARCIA M.D. Performed By: #### R HOLA Tinajero ####[facility] [id number] [place] [address] [facility] Scl-70 antibody assayOrdered By: Sanket Hammer on 08-04-2023 SCL-70 extractable nuclear Ab IA Qn (S) <0.2 AI 0.0-0.9 [facility] Serum Ana María-1 extractable nucle ar antibody assay (units/volume)Ordered By: Sanket Hammer on 08-04-2023 Ana María-1 extractable nuclear Ab Qn (S) <0.2 AI 0.0-0.9 [facility] Serum Sjogrens syndrome-A ex tractable nuclear antibody assay (units/volume)Ordered By: Sanket Hammer on 08-04-2023 Sjogrens syndrome-A extractable nuclear Ab Qn (S) <0.2 AI 0.0-0.9 [facility] Serum Sjogrens syndrome-B ex tractable nuclear antibody assay (units/volume)Ordered By: Sanket Hammer on 08-04-2023 Sjogrens syndrome-B extractable nuclear Ab Qn (S) <0.2 AI 0.0-0.9 [facility] Serum Juan extractable nucl ear antigen (MALINDA) antibody assay (units/volume)Ordered By: Sanket Hammer on 08-04-2023 Juan extractable nuclear Ab Qn (S) <0.2 AI 0.0-0.9 [facility] Serum centromere protein B a ntibody assay (units/volume)Ordered By: Sanket Hammer on 08-04-2023 Centromere protein B Ab Qn (S) <0.2 AI 0.0-0.9 [facility] Serum classic neutrophil cyt oplasmic antibody titer by immunofluorescenceOrdered By: Sanket Hammer on 08-04-2023 Neutrophil cytoplasmic Ab.classic IF (S) [Titer] <1:20 titer Neg:<1:20 [facility] Comment on above: Please Note: Specime n is lipemic. Serum or plasma chromatin an tibody assay (units/volume)Ordered By: Sanket Hammer on 08-04-2023 Chromatin Ab Qn <0.2 AI 0.0-0.9 [facility] Serum or plasma free cefurox karolina measurement (mass/volume)Ordered By: Sanket Hammer on 08-04-2023 Cefuroxime free [Mass/Vol] Positive Negative [facility] Vancomycin [Mass/volume] in Serum or PlasmaOrdered By: Socorro Felton on 08-04-2023 Vancomycin [Mass/Vol] 15.7 ug/mL 5.0-20.0 [facility] Comment on above: Last dose: - Vancomycin,Randomon 08-04-19 24 Vancomycin,Random 15.7 ug/mL Normal 5.0-20.0 [facility] Comment on above: Order Comment: Date of last dose?: 20230803 Time of last dose?: 399 Result Comment: Last dose: -PERFORMED BY:[facility] [place], [place] [phone] MEDICAL DIRECTORJOSEPH GARCIA M.D. Performed By: #### V ANCR ####[facility] [place] [address] [facility] XR chest 1V portableon 08-03 XR chest 1V portable Normal [facility] Arterial Blood Gason 024 ABG Base Excess 0.0 mmol/L Normal -3.0-3.0 [facility] Comment on above: Performed By: #### A BG ####Point of Care testing, ABG Frac Inspired O2 35 % Normal [facility] Comment on above: Performed By: #### A BG ####Point of Care testing, ABG Oxygen Content 5.9 mmol/L Low 6.6-9.7 [facility] Comment on above: Performed By: #### A BG ####Point of Care testing, ABG Oxygen Saturation 92.3 % Low 95.0-100.0 [facility] Comment on above: Performed By: #### A BG ####Point of Care testing, ABG PCO2 35.3 mm[Hg] Normal 35.0-45.0 [facility] Comment on above: Performed By: #### A BG ####Point of Care testing, ABG PEEP 5 Normal [facility] Comment on above: Performed By: #### A BG ####Point of Care testing, ABG PH 7.45 Normal 7.35-7.45 [facility] Comment on above: Performed By: #### A BG ####Point of Care testing, ABG PO2 63.3 mm[Hg] Low 80.0-100.0 [facility] Comment on above: Performed By: #### A BG ####Point of Care testing, ABG TV 500 mL Normal [facility] Comment on above: Performed By: #### A BG ####Point of Care testing, CO2 [Moles/Vol] 24.8 mmol/L Normal 23.0-27.0 [facility] Comment on above: Performed By: #### A BG ####Point of Care testing, HCO3 (Bld) [Moles/Vol] 23.8 mmol/L Normal 23.0-29.0 [facility] Comment on above: Performed By: #### A BG ####Point of Care testing, Respiratory Critical Normal [facility] Comment on above: Result Comment: Crit ical Value called on: 08/03/2023 at 05:42PERFORMED BY:[address] [address] [place], [place] [phone] MEDICAL DIRECTORJOSEPH GARCIA M.D. Performed By: #### A BG ####Point of Care testing, Set Respiratory Rate 14 Normal [facility] Comment on above: Performed By: #### A BG ####Point of Care testing, VBG Draw Site Left Radial Normal [facility] Comment on above: Performed By: #### A BG ####Point of Care testing, Ventilator Mode AC Normal [facility] Comment on above: Performed By: #### A BG ####Point of Care testing, Basic Metabolic Panelon 07-24 Anion gap [Moles/Vol] 15.7 mmol/L High 6.0-15.0 [facility] Comment on above: Performed By: #### D IFF CBC, BMP ####[place] [id number] [facility] Calcium [Mass/Vol] 7.5 mg/dL Low 8.6-10.3 [facility] Comment on above: Performed By: #### D IFF CBC, BMP ####[place] [address] [place] [id number] [facility] Chloride [Moles/Vol] 94 mmol/L Low 98-107 [facility] Comment on above: Performed By: #### D IFF CBC, BMP ####[place] [id number] [facility] CO2 [Moles/Vol] 22.5 mmol/L Normal 21.0-31.0 [facility] Comment on above: Performed By: #### D IFF CBC, BMP ####[place] [id number] [facility] Creatinine [Mass/Vol] 3.38 mg/dL Significan t change up 0.70-1.30 [facility] Comment on above: Performed By: #### D IFF CBC, BMP ####[address] Creatinine Clr Calc Pharmacy 23.17 Normal [facility] Comment on above: Result Comment: PERF ORMED BY:[address] [place], [place] [phone] MEDICAL SILVIA GARCIA M.D. Performed By: #### D IFF CBC, BMP ####[place] [id number] [facility] GFR/1.73 sq M.predicted MDRD (S/P/Bld) [Vol rate/Area] 18.660 mL/min/{1.73_m2} Normal [facility] Comment on above: Performed By: #### D IFF CBC, BMP ####[place] [id number] [facility] Glucose [Mass/Vol] 131 mg/dL High 70-100 [facility] Comment on above: Result Comment: [place] Glucose Reference Range is dependent on time and content of last meal. Glucose of more than 200 mg/dL in a nonstressed, ambulatory subject supports the diagnosis of Diabetes Mellitus. ADA recommended reference range Performed By: #### D IFF CBC, BMP ####[place] [id number] Potassium [Moles/Vol] 4.2 mmol/L Normal 3.5-5.1 [facility] Comment on above: Performed By: #### D IFF CBC, BMP ####[address] Sodium [Moles/Vol] 128 mmol/L Low 136-145 [facility] Comment on above: Performed By: #### D IFF CBC, BMP ####[address] Urea nitrogen [Mass/Vol] 38 mg/dL High 7-25 [facility] Comment on above: Performed By: #### D IFF CBC, BMP ####[address] Diff and CBCon 08-03-2023 Anisocytosis Ql (Bld) Moderate Normal [facility] Comment on above: Performed By: #### D IFF CBC, BMP ####[address] Band form neutrophils/100 WBC (Bld) 2 % Normal 0-5 [facility] Comment on above: Performed By: #### D IFF CBC, BMP ####[address] Crenated RBC Slight Normal [facility] Comment on above: Performed By: #### D IFF CBC, BMP ####[address] Erythrocyte distribution width (RBC) [Ratio] 18.9 % High 12.0-14.8 [facility] Comment on above: Performed By: #### D IFF CBC, BMP ####[address] Hematocrit (Bld) [Volume fraction] 28.7 % Low 38.8-50.0 [facility] Comment on above: Performed By: #### D IFF CBC, BMP ####[address] Hemoglobin (Bld) [Mass/Vol] 9.9 g/dL Low 13.0-17.0 [facility] Comment on above: Performed By: #### D IFF CBC, BMP ####[place] [id number] [facility] Lymphocytes/100 WBC (Bld) 9 % Low 18-42 [facility] Comment on above: Performed By: #### D IFF CBC, BMP ####[address] MCH (RBC) [Entitic mass] 30.1 pg Normal 27.5-35.2 [facility] Comment on above: Performed By: #### D IFF CBC, BMP ####[address] MCV (RBC) [Entitic vol] 87.6 fL Normal 83.5-101 [facility] Comment on above: Performed By: #### D IFF CBC, BMP ####[address] Mean Corpuscular HGB Conc 34.4 g/dL Normal 32.5-35.6 [facility] Comment on above: Performed By: #### D IFF CBC, BMP ####[address] Monocytes/100 WBC (Bld) 8 % Normal 2-11 [facility] Comment on above: Performed By: #### D IFF CBC, BMP ####[place] [id number] [facility] Nucleated Red Blood Cell 1 /100{WBC} High 0-0 [facility] Comment on above: Performed By: #### D IFF CBC, BMP ####[place] [id number] [facility] Platelet Estimate Normal Normal Normal [facility] Comment on above: Performed By: #### D IFF CBC, BMP ####[address] [address] [facility] Platelet mean volume (Bld) [Entitic vol] 7.7 fL Normal 6.6-10.1 [facility] Comment on above: Result Comment: PERF ORMED BY:[address] [place], [place] [phone] MEDICAL DIRECTORJOSEPH GARCIA M.D. Performed By: #### D IFF CBC, BMP ####[place] [id number] [facility] Platelet Morphology Normal Normal Normal [facility] Comment on above: Result Comment: PERF ORMED BY:[address] [place], [place] [phone] MEDICAL DIRECTORJOSEPH GARCIA M.D. Performed By: #### D IFF CBC, BMP ####[place] [id number] [facility] Platelets (Bld) [#/Vol] 287 10*3/uL Normal 150-450 [facility] Comment on above: Performed By: #### D IFF CBC, BMP ####[place] [id number] [facility] Poikilocytosis Slight Normal [facility] Comment on above: Performed By: #### D IFF CBC, BMP ####[place] [id number] [facility] Polychromasia Moderate Normal [facility] Comment on above: Performed By: #### D IFF CBC, BMP ####[place] [id number] [facility] RBC (Bld) [#/Vol] 3.28 10*6/uL Low 3.90-5.60 [facility] Comment on above: Performed By: #### D IFF CBC, BMP ####[place] [id number] [facility] Schistocytes Slight Normal [facility] Comment on above: Performed By: #### D IFF CBC, BMP ####[address] [address] [facility] Segmented neutrophils/100 WBC (Bld) 82 % High 50-70 [facility] Comment on above: Performed By: #### D IFF CBC, BMP ####[address] [place] [address] [facility] Spherocytes Slight Normal [facility] Comment on above: Performed By: #### D IFF CBC, BMP ####[address] [place] [address] [facility] Tear Drop Cells Slight Normal [facility] Comment on above: Performed By: #### D IFF CBC, BMP ####[address] [address] [facility] WBC (Bld) [#/Vol] 9.6 10*3/uL Normal 4.1-10.5 [facility] Comment on above: Performed By: #### D IFF CBC, BMP ####[place] [id number] [facility] ECG 12 lead ECGon 08-03-2023 ECG 12 lead ECG Normal [facility] Glucose Poct Glucometerson 0 08-03-2023 Commemt1 Glu2: Cleaned Meter Normal [facility] Comment on above: Result Comment: PERF ORMED BY:[address] [place], [place] [phone] MEDICAL DIRECTORJOSEPH GARCIA M.D. Performed By: #### G LULS ####Point of Care testing, Glucose [Mass/Vol] 115 mg/dL Normal [facility] Comment on above: Result Comment: [facility][note 3] Glucose Reference Range is dependent on time and content of last meal. Glucose of more than 200 mg/dL in a nonstressed, ambulatory subject supports the diagnosis of Diabetes Mellitus. Performed By: #### G LULS ####Point of Care testing, Commemt1 Glu2: Cleaned Meter Normal [facility] Comment on above: Result Comment: PERF ORMED BY:[address] [place], [place] [phone] MEDICAL DIRECTORJOSEPH GARCIA M.D. Performed By: #### G LULS ####Point of Care testing, Glucose [Mass/Vol] 116 mg/dL Normal [facility] Comment on above: Result Comment: [place] om Glucose Reference Range is dependent on time and content of last meal. Glucose of more than 200 mg/dL in a nonstressed, ambulatory subject supports the diagnosis of Diabetes Mellitus. Performed By: #### G LULS ####Point of Care testing, Commemt1 Glu2: Cleaned Meter Normal [facility] Comment on above: Result Comment: PERF ORMED BY:[address] [address] [address] [place], [place] [phone] MEDICAL DIRECTORJOSEPH GARCIA M.D. Performed By: #### G LULS ####Point of Care testing, Glucose [Mass/Vol] 100 mg/dL Normal [facility] Comment on above: Result Comment: [place] om Glucose Reference Range is dependent on time and content of last meal. Glucose of more than 200 mg/dL in a nonstressed, ambulatory subject supports the diagnosis of Diabetes Mellitus. Performed By: #### G LULS ####Point of Care testing, Nucleated RBC/100 WBC Manual cnt (Bld) [Ratio]Ordered By: Geo Thomas on 08-03-2023 Nucleated RBC/100 WBC (Bld) [Ratio] 1 /100{WBC} 0-0 [facility] Teardrop cell detectionOrder ed By: Geo Thomas on 08-03-2023 Dacrocytes LM Ql (Bld) Slight [facility] Triglycerideson 08-03-2023 Triglyceride [Mass/Vol] 286 mg/dL High 35-149 [facility] Comment on above: Result Comment: TRIG ATP III CLASSIFICATION TRIG less than 150 mg/dL Normal TRIG 150-199 mg/dL Borderline high TRIG 200-500 mg/dL High TRIG greater than 500 mg/dL Very high Standard traceable to the Center for Disease Conrtrol and Prevention (CDC) test method.PERFORMED BY:[address] [place], [place] [phone] MEDICAL DIRECTORJOSEPH GARCIA M.D. Performed By: #### T RIG ####[facility] [place] [address] [facility] XR chest 1V portableon 08-02 XR chest 1V portable Normal [facility] Arterial Blood Gason 024 ABG Base Excess 0.0 mmol/L Normal -3.0-3.0 [facility] Comment on above: Performed By: #### A BG ####Point of Care testing, ABG Frac Inspired O2 35 % Normal [facility] Comment on above: Performed By: #### A BG ####Point of Care testing, ABG Oxygen Content 6.6 mmol/L Normal 6.6-9.7 [facility] Comment on above: Performed By: #### A BG ####Point of Care testing, ABG Oxygen Saturation 93.0 % Low 95.0-100.0 [facility] Comment on above: Performed By: #### A BG ####Point of Care testing, ABG PCO2 36.3 mm[Hg] Normal 35.0-45.0 [facility] Comment on above: Performed By: #### A BG ####Point of Care testing, ABG PEEP 5 Normal [facility] Comment on above: Performed By: #### A BG ####Point of Care testing, ABG PH 7.44 Normal 7.35-7.45 [facility] Comment on above: Performed By: #### A BG ####Point of Care testing, ABG PO2 65.3 mm[Hg] Low 80.0-100.0 [facility] Comment on above: Performed By: #### A BG ####Point of Care testing, ABG TV 500 mL Normal [facility] Comment on above: Performed By: #### A BG ####Point of Care testing, CO2 [Moles/Vol] 25.0 mmol/L Normal 23.0-27.0 [facility] Comment on above: Performed By: #### A BG ####Point of Care testing, HCO3 (Bld) [Moles/Vol] 23.9 mmol/L Normal 23.0-29.0 [facility] Comment on above: Performed By: #### A BG ####Point of Care testing, Respiratory Critical Normal [facility] Comment on above: Result Comment: Crit ical Value called on: 08/02/2023 at 05:47PERFORMED BY:[address] [place], [place] [phone] MEDICAL DIRECTORJOSEPH GARCIA M.D. Performed By: #### A BG ####Point of Care testing, Set Respiratory Rate 14 Normal [facility] Comment on above: Performed By: #### A BG ####Point of Care testing, VBG Draw Site Left Radial Normal [facility] Comment on above: Performed By: #### A BG ####Point of Care testing, Basic Metabolic Panelon 03-0 Anion gap [Moles/Vol] 15.0 mmol/L Normal 6.0-15.[address] [facility] Comment on above: Performed By: #### B MP, DIFF CBC ####[address] [address] [facility] Calcium [Mass/Vol] 7.8 mg/dL Low 8.6-10.3 [facility] Comment on above: Performed By: #### B MP, DIFF CBC ####[address] [address] [facility] Chloride [Moles/Vol] 95 mmol/L Low 98-107 [facility] Comment on above: Performed By: #### B MP, DIFF CBC ####[address] [address] [facility] CO2 [Moles/Vol] 24.1 mmol/L Normal 21.0-31.0 [facility] Comment on above: Performed By: #### B MP, DIFF CBC ####[address] [address] [place] Creatinine [Mass/Vol] 2.71 mg/dL Significan t change up 0.70-1.30 [facility] Comment on above: Performed By: #### B MP, DIFF CBC ####[address] [place] [address] [place] Creatinine Clr Calc Pharmacy 28.90 Normal [facility] Comment on above: Result Comment: PERF ORMED BY:[address] LATamikoTracyLUZ [place], [place] [phone] MEDICAL SILVIA GARCIA M.D. Performed By: #### B MP, DIFF CBC ####[address] [place] [address] [facility] GFR/1.73 sq M.predicted MDRD (S/P/Bld) [Vol rate/Area] 24.325 mL/min/{1.73_m2} Normal [facility] Comment on above: Performed By: #### B MP, DIFF CBC ####[id number] [facility] Glucose [Mass/Vol] 109 mg/dL High 70-100 [facility] Comment on above: Result Comment: [facility][note 3] Glucose Reference Range is dependent on time and content of last meal. Glucose of more than 200 mg/dL in a nonstressed, ambulatory subject supports the diagnosis of Diabetes Mellitus. ADA recommended reference range Performed By: #### B MP, DIFF CBC ####[address] [address] [facility] Potassium [Moles/Vol] 4.1 mmol/L Normal 3.5-5.1 [facility] Comment on above: Performed By: #### B MP, DIFF CBC ####[address] [address] [place] Sodium [Moles/Vol] 130 mmol/L Low 136-145 [facility] Comment on above: Performed By: #### B MP, DIFF CBC ####[address] [address] [facility] Urea nitrogen [Mass/Vol] 23 mg/dL Normal 7-25 [facility] Comment on above: Performed By: #### B MP, DIFF CBC ####[id number] [facility] Diff and CBCon 08-02-2023 Anisocytosis Ql (Bld) Moderate Normal [facility] Comment on above: Performed By: #### B MP, DIFF CBC ####[address] Band form neutrophils/100 WBC (Bld) 3 % Normal 0-5 [facility] Comment on above: Performed By: #### B MP, DIFF CBC ####[id number] [facility] Basophils/100 WBC (Bld) 1 % Normal 0-2 [facility] Comment on above: Performed By: #### B MP, DIFF CBC ####[address] Crenated RBC Slight Normal [facility] Comment on above: Performed By: #### B MP, DIFF CBC ####[address] Erythrocyte distribution width (RBC) [Ratio] 19.3 % High 12.0-14.8 [facility] Comment on above: Performed By: #### B MP, DIFF CBC ####[address] Hematocrit (Bld) [Volume fraction] 29.6 % Significant change down 38.8-50.0 [facility] Comment on above: Performed By: #### B MP, DIFF CBC ####[address] Hemoglobin (Bld) [Mass/Vol] 9.7 g/dL Low 13.0-17.0 [facility] Comment on above: Performed By: #### B MP, DIFF CBC ####[id number] [facility] Lymphocytes/100 WBC (Bld) 3 % Low 18-42 [facility] Comment on above: Performed By: #### B MP, DIFF CBC ####[id number] [facility] MCH (RBC) [Entitic mass] 29.3 pg Normal 27.5-35.2 [facility] Comment on above: Performed By: #### B MP, DIFF CBC ####[id number] [facility] MCV (RBC) [Entitic vol] 89.0 fL Normal 83.5-101 [facility] Comment on above: Performed By: #### B MP, DIFF CBC ####[address] Mean Corpuscular HGB Conc 32.9 g/dL Normal 32.5-35.6 [facility] Comment on above: Performed By: #### B MP, DIFF CBC ####[address] Monocytes/100 WBC (Bld) 10 % Normal 2-11 [facility] Comment on above: Performed By: #### B MP, DIFF CBC ####[id number] [facility] Platelet Estimate Normal Normal Normal [facility] Comment on above: Performed By: #### B MP, DIFF CBC ####[address] Platelet mean volume (Bld) [Entitic vol] 7.7 fL Normal 6.6-10.1 [facility] Comment on above: Result Comment: PERF ORMED BY:[address] [address] [address] [place], [place] [phone] MEDICAL DIRECTORJOSEPH GARCIA M.D. Performed By: #### B MP, DIFF CBC ####[id number] [facility] Platelet Morphology Normal Normal Normal [facility] Comment on above: Result Comment: PERF ORMED BY:[address] [place], [place] [phone] MEDICAL DIRECTORJOSEPH GARCIA M.D. Performed By: #### B MP, DIFF CBC ####[address] Platelets (Bld) [#/Vol] 298 10*3/uL Normal 150-450 [facility] Comment on above: Performed By: #### B MP, DIFF CBC ####[address] Poikilocytosis Slight Normal [facility] Comment on above: Performed By: #### B MP, DIFF CBC ####[address] Polychromasia Slight Normal [facility] Comment on above: Performed By: #### B MP, DIFF CBC ####[address] RBC (Bld) [#/Vol] 3.32 10*6/uL Low 3.90-5.60 [facility] Comment on above: Performed By: #### B MP, DIFF CBC ####[address] Schistocytes Slight Normal [facility] Comment on above: Performed By: #### B MP, DIFF CBC ####[address] Segmented neutrophils/100 WBC (Bld) 83 % High 50-70 [facility] Comment on above: Performed By: #### B MP, DIFF CBC ####[address] WBC (Bld) [#/Vol] 12.2 10*3/uL High 4.1-10.5 [facility] Comment on above: Performed By: #### B MP, DIFF CBC ####[address] Dipstick and Microscopicon 0 08-02-2023 Appearance (U) Turbid Critically abnormal Clear [facility] Comment on above: Order Comment: Name Collection Type:: Santana Catheter Performed By: #### A STEVEN EVANS ####[address] [place] [address] [place] Bacteria,Urine 1+ High None Seen [facility] Comment on above: Order Comment: Name Collection Type:: Santana Catheter Performed By: #### A DDONUAPLUS, CUU ####[address] [place] [address] [place] Bilirubin,Urine 1+ High Negative [facility] Comment on above: Order Comment: Name Collection Type:: Santana Catheter Performed By: #### A DDONUAPLUS, CUU ####[address] [address] [place] Coarse Granular Casts,Urine 1-2 High 0-1 [facility] Comment on above: Order Comment: Name Collection Type:: Santana Catheter Performed By: #### A DDONUAPLUS, CUU ####[address] [address] [place] Color (U) Dark Yellow Critically abnormal Yellow [facility] Comment on above: Order Comment: Name Collection Type:: Santana Catheter Performed By: #### A DDONUAPLUS, CUU ####[address] [address] [place] Fine Granular Casts,Urine 3-4 High 0-1 [facility] Comment on above: Order Comment: Name Collection Type:: Santana Catheter Performed By: #### A DDONUAPLUS, CUU ####[address] [address] [place] Glucose Ql (U) Normal Normal Normal [facility] Comment on above: Order Comment: Name Collection Type:: Santana Catheter Performed By: #### A DDONUAPLUS, CUU ####[address] [address] [place] Hyaline Casts,Urine 0-1 Normal 0-1 [facility] Comment on above: Order Comment: Name Collection Type:: Santana Catheter Performed By: #### A DDONUAPLUS, CUU ####[address] [address] [place] Ketones Ql (U) Trace High Negative [facility] Comment on above: Order Comment: Name Collection Type:: Santana Catheter Performed By: #### A DDONUAPLUS, CUU ####[address] [place] [address] [facility] Leukocyte esterase Test strip Ql (U) 2+ High Negative [facility] Comment on above: Order Comment: Name Collection Type:: Santana Catheter Performed By: #### A DDONUAPLUS, CUU ####[address] [address] [facility] Nitrite,Urine Negative Normal Negative [facility] Comment on above: Order Comment: Name Collection Type:: Santana Catheter Performed By: #### A DDONUAPLUS, CUU ####[address] [address] [facility] Occult Blood,Urine Trace High Negative [facility] Comment on above: Order Comment: Name Collection Type:: Santana Catheter Result Comment: PERF ORMED BY:[address] [place], [place] [phone] MEDICAL DIRECTORJOSEPH GARCIA M.D. Performed By: #### A DDONUAPLUS, CUU ####[address] [address] [facility] Other Casts,Urine None Seen Normal None Seen [facility] Comment on above: Order Comment: Name Collection Type:: Santana Catheter Performed By: #### A DDONUAPLUS, CUU ####[address] [address] [facility] pH (U) 5.0 [pH] Normal 5.0-9.0 [facility] Comment on above: Order Comment: Name Collection Type:: Santana Catheter Performed By: #### A DDONUAPLUS, CUU ####[address] [address] [facility] Protein (U) [Mass/Vol] 300 mg/dL High Negative [facility] Comment on above: Order Comment: Name Collection Type:: Santana Catheter Performed By: #### A DDONUAPLUS, CUU ####[address] [place] [address] [facility] RBC,Urine 3-4 Normal 0-4 [facility] Comment on above: Order Comment: Name Collection Type:: Santana Catheter Performed By: #### A DDONUAPLUS, CUU ####[address] [address] [facility] Specificy [place],Urine 1.027 Normal 1.001-1.030 [facility] Comment on above: Order Comment: Name Collection Type:: Santana Catheter Performed By: #### A DDONUAPLUS, CUU ####[address] [address] [facility] Squamous Epithelial Cell,Urine 10-19 High 0-2 [facility] Comment on above: Order Comment: Name Collection Type:: Santana Catheter Performed By: #### A DDONUAPLUS, CUU ####[address] [address] [facility] Urobilinogen,Urine Normal Normal Normal [facility] Comment on above: Order Comment: Name Collection Type:: Santana Catheter Performed By: #### A DDONUAPLUS, CUU ####[address] [address] [facility] Waxy Casts,Urine 0-1 High None Seen [facility] Comment on above: Order Comment: Name Collection Type:: Santana Catheter Performed By: #### A DDONUAPLUS, CUU ####[address] [address] [facility] WBC,Urine Innumerable High 0-4 [facility] Comment on above: Order Comment: Name Collection Type:: Santana Catheter Performed By: #### A DDONUAPLUS, CUU ####[address] [address] [facility] Yeast,Urine None Seen Normal None Seen [facility] Comment on above: Order Comment: Name Collection Type:: Santana Catheter Result Comment: PERF ORMED BY:[address] [place], [place] [phone] MEDICAL DIRECTORJOSEPH GARCIA M.D. Performed By: #### A DDONUAPLUS, CUU ####[facility] [address] [place] [address] [facility] ECG 12 lead ECGon 08-02-2023 ECG 12 lead ECG Normal [facility] Fine granular cast count in urine sediment by microscopy (number/low power field )Ordered By: Jesica Juan on 08-02-2023 Fine Granular Casts LM.LPF (Urine sed) [#/Area] 3-4 [LPF] 0-1 [facility] Glucose Poct Glucometerson 0 08-02-2023 Glucose [Mass/Vol] 109 mg/dL Normal [facility] Comment on above: Result Comment: [place] om Glucose Reference Range is dependent on time and content of last meal. Glucose of more than 200 mg/dL in a nonstressed, ambulatory subject supports the diagnosis of Diabetes Mellitus.PERFORMED BY:[address] [place], [place] [phone] MEDICAL DIRECTORJOSEPH GARCIA M.D. Performed By: #### G LULS ####Point of Care testing, Commemt1 Glu2: Cleaned Meter Normal [facility] Comment on above: Result Comment: PERF ORMED BY:[address] [address] [address] [place], [place] [phone] MEDICAL DIRECTORJOSEPH GARCIA M.D. Performed By: #### G LULS ####Point of Care testing, Glucose [Mass/Vol] 163 mg/dL Normal [facility] Comment on above: Result Comment: [place] om Glucose Reference Range is dependent on time and content of last meal. Glucose of more than 200 mg/dL in a nonstressed, ambulatory subject supports the diagnosis of Diabetes Mellitus. Performed By: #### G LULS ####Point of Care testing, Glucose [Mass/Vol] 132 mg/dL Normal [facility] Comment on above: Result Comment: [place] om Glucose Reference Range is dependent on time and content of last meal. Glucose of more than 200 mg/dL in a nonstressed, ambulatory subject supports the diagnosis of Diabetes Mellitus.PERFORMED BY:[address] [address] [address] [place], [place] [phone] MEDICAL DIRECTORJOSEPH GARCIA M.D. Performed By: #### G LULS ####Point of Care testing, Glucose [Mass/Vol] 101 mg/dL Normal [facility] Comment on above: Result Comment: [place] Glucose Reference Range is dependent on time and content of last meal. Glucose of more than 200 mg/dL in a nonstressed, ambulatory subject supports the diagnosis of Diabetes Mellitus.PERFORMED BY:[address] [address] [address] [place], [place] [phone] MEDICAL DIRECTORJOSEPH GARCIA M.D. Performed By: #### G LULS ####Point of Care testing, Troponin I High Sensitivityo n 08-02-2023 Troponin I High Sensitivity 1819.2 pg/mL Off scale high 0.0-20.0 [facility] Comment on above: Result Comment: Crit ical Result : Called to and read back by: CARLYN SLAUGHTER at: 08/02/2023 05:34:14 by:[id number] BY:[address] [address] [address] [place] [place], [place] [phone] MEDICAL DIRECTORJOSEPH GARCIA M.D. Performed By: #### H S TROP ####[address] [address] [facility] Troponin I.cardiac [Mass/vol ume] in Serum or Plasma by Detection limit <= 0.01 ng/Ordered By: Geo Thomas on 08-02-2023 Troponin I.cardiac DL <= 0.01 ng/mL [Mass/Vol] 1819.2 pg/mL 0.0-20.0 [facility] Comment on above: Critical Result : Ca lled to and read back by: CARLYN SLAUGHTER at: 08/02/2023 05:34:14 by:[id number] US venous duplex LE BIon US venous duplex LE BI Normal [facility] Urine Cultureon 08-02-2023 Bacteria identified Cx Nom (U) No Growth 2 Days PERFORMED BY: [facility] [address] [place] [address] PATHOLOGIST MARKETING SALES SUPERVISOR JOSEPH GARCIA M.D. Normal [facility] Comment on above: Performed By: #### A ARACELI EVANSU ####[facility] [id number] [facility] Urine culture routineOrdered By: Jesica Juan on 08-02-2023 Bacteria identified Cx Nom (U) No Growth 2 Days [facility] XR chest 1V portableon 08-01 XR chest 1V portable Normal [facility] Aerobic Cultureon 08-01-2023 Aerobic Culture Normal [facility] Comment on above: Performed By: #### A ERC, GS ####[id number] [facility] Arterial Blood Gason 024 ABG Base Excess -2.0 mmol/L Normal -3.0-3.0 [facility] Comment on above: Performed By: #### A BG ####Point of Care testing, ABG Frac Inspired O2 60 % Normal [facility] Comment on above: Performed By: #### A BG ####Point of Care testing, ABG Oxygen Content 4.6 mmol/L Low 6.6-9.7 [facility] Comment on above: Performed By: #### A BG ####Point of Care testing, ABG Oxygen Saturation 94.2 % Low 95.0-100.0 [facility] Comment on above: Performed By: #### A BG ####Point of Care testing, ABG PCO2 39.0 mm[Hg] Normal 35.0-45.0 [facility] Comment on above: Performed By: #### A BG ####Point of Care testing, ABG PEEP 5 Normal [facility] Comment on above: Performed By: #### A BG ####Point of Care testing, ABG PH 7.39 Normal 7.35-7.45 [facility] Comment on above: Performed By: #### A BG ####Point of Care testing, ABG PO2 75.0 mm[Hg] Low 80.0-100.0 [facility] Comment on above: Performed By: #### A BG ####Point of Care testing, ABG TV 500 mL Normal [facility] Comment on above: Performed By: #### A BG ####Point of Care testing, CO2 [Moles/Vol] 24.1 mmol/L Normal 23.0-27.0 [facility] Comment on above: Performed By: #### A BG ####Point of Care testing, HCO3 (Bld) [Moles/Vol] 22.9 mmol/L Low 23.0-29.0 [facility] Comment on above: Performed By: #### A BG ####Point of Care testing, Respiratory Critical Normal [facility] Comment on above: Result Comment: Crit ical Value called on: 08/01/2023 at 06:42PERFORMED BY:[address] [address] [address] [place]UÑ[place]DA[place], [place] [phone] MEDICAL DIRECTORJOSEPH GARCIA M.D. Performed By: #### A BG ####Point of Care testing, Set Respiratory Rate 14 Normal [facility] Comment on above: Performed By: #### A BG ####Point of Care testing, VBG Draw Site Left Radial Normal [facility] Comment on above: Performed By: #### A BG ####Point of Care testing, Ventilator Mode AC Normal [facility] Comment on above: Performed By: #### A BG ####Point of Care testing, BNP ser/plasOrdered By: Malcolm Mejia on 08-01-2023 Natriuretic peptide B (Bld) [Mass/Vol] 886.0 pg/mL High 5-100 [facility] Comment on above: Result Comment: PERF ORMED BY:[address] [address] [address] [place]UÑ[place], [place] [phone] MEDICAL DIRECTORJOSEPH GARCIA M.D. Performed By: #### M G, CRP, ESR, TRIG, HS TROP, CMP, CBCNO, BNP ####[address] [address] [facility] Bacterial blood cultureOrder ed By: Geo Shirleyfranco on 08-01-2023 Bacteria identified Cx Nom (Bld) NO GROWTH 5 DAYS [facility] Bacteria identified Cx Nom (Bld) NO GROWTH 5 DAYS [facility] BioFire Not Detectedon 07-31 BioFire Not Detected Not detected Normal Not Detecte [facility] Comment on above: Result Comment: This is a duplicate RP2.1 COVID (PCR) result to be used for statistical tracking purpose only.PERFORMED BY:[address]iko[address]LU[address] [place], [place] [phone] MEDICAL DIRECTORJOSEPH GARCIA M.D. Performed By: #### B IOFIRECOVNOTDE, RESP PANEL UPP. ####[address] [address] [facility] Blood Cultureon 08-01-2023 Bacteria identified Cx Nom (Bld) NO GROWTH 5 DAYS PERFORMED BY: [address] [place] [place] [address] PATHOLOGIST MARKETING SALES SUPERVISOR JOSEPH GARCIA M.D. Normal [facility] Comment on above: Performed By: #### C UBLD ####[address] [address] [facility] Bacteria identified Cx Nom (Bld) NO GROWTH 5 DAYS PERFORMED BY: [facility] [address] [place] [address] PATHOLOGIST MARKETING SALES SUPERVISOR JOSEPH GARCIA M.D. Normal [facility] Comment on above: Performed By: #### C UBLD ####[address] [address] [facility] C-Reactive Proteinon 024 C-Reactive Protein 7.1 mg/dL High 0.0-0.5 [facility] Comment on above: Result Comment: PERF ORMED BY:[address]TamikoTracyLUZ [place], [place] [phone] MEDICAL DIRECTORJOSEPH GARCIA M.D. Performed By: #### M G, CRP, ESR, TRIG, HS TROP, CMP, CBCNO, BNP ####[address] Comprehensive Metabolic Pane neil 08-01-2023 Albumin [Mass/Vol] 2.5 g/dL Low 3.5-5.7 [facility] Comment on above: Performed By: #### M G, CRP, ESR, TRIG, HS TROP, CMP, CBCNO, BNP ####[address] Albumin/Globulin [Mass ratio] 0.8 {ratio} Normal [facility] Comment on above: Performed By: #### M G, CRP, ESR, TRIG, HS TROP, CMP, CBCNO, BNP ####[address] ALP [Catalytic activity/Vol] 63 U/L Normal 34-104 [facility] Comment on above: Performed By: #### M G, CRP, ESR, TRIG, HS TROP, CMP, CBCNO, BNP ####[place] [id number] [facility] ALT [Catalytic activity/Vol] 10 U/L Normal 7-52 [facility] Comment on above: Performed By: #### M G, CRP, ESR, TRIG, HS TROP, CMP, CBCNO, BNP ####[place] [id number] [facility] Anion gap [Moles/Vol] 10.2 mmol/L Normal 6.0-15.[address] [facility] Comment on above: Performed By: #### M G, CRP, ESR, TRIG, HS TROP, CMP, CBCNO, BNP ####[address] AST [Catalytic activity/Vol] 23 U/L Normal 13-39 [facility] Comment on above: Performed By: #### M G, CRP, ESR, TRIG, HS TROP, CMP, CBCNO, BNP ####[address] Bilirubin [Mass/Vol] 0.4 mg/dL Normal 0.3-1.0 [facility] Comment on above: Performed By: #### M G, CRP, ESR, TRIG, HS TROP, CMP, CBCNO, BNP ####[address] Calcium [Mass/Vol] 7.6 mg/dL Low 8.6-10.3 [facility] Comment on above: Performed By: #### M G, CRP, ESR, TRIG, HS TROP, CMP, CBCNO, BNP ####[address] Chloride [Moles/Vol] 101 mmol/L Normal 98-107 [facility] Comment on above: Performed By: #### M G, CRP, ESR, TRIG, HS TROP, CMP, CBCNO, BNP ####[address] CO2 [Moles/Vol] 24.6 mmol/L Normal 21.0-31.0 [facility] Comment on above: Performed By: #### M G, CRP, ESR, TRIG, HS TROP, CMP, CBCNO, BNP ####[address] Creatinine [Mass/Vol] 3.42 mg/dL High 0.70-1.30 [facility] Comment on above: Performed By: #### M G, CRP, ESR, TRIG, HS TROP, CMP, CBCNO, BNP ####[address] Creatinine Clr Calc Pharmacy 23.17 Normal [facility] Comment on above: Performed By: #### M G, CRP, ESR, TRIG, HS TROP, CMP, CBCNO, BNP ####[address] GFR/1.73 sq M.predicted MDRD (S/P/Bld) [Vol rate/Area] 18.398 mL/min/{1.73_m2} Normal [facility] Comment on above: Performed By: #### M G, CRP, ESR, TRIG, HS TROP, CMP, CBCNO, BNP ####[place] [address] Globulin (S) [Mass/Vol] 3.0 g/dL Normal [facility] Comment on above: Performed By: #### M G, CRP, ESR, TRIG, HS TROP, CMP, CBCNO, BNP ####[address] Glucose [Mass/Vol] 142 mg/dL High 70-100 [facility] Comment on above: Result Comment: [facility][note 3] Glucose Reference Range is dependent on time and content of last meal. Glucose of more than 200 mg/dL in a nonstressed, ambulatory subject supports the diagnosis of Diabetes Mellitus. ADA recommended reference range Performed By: #### M G, CRP, ESR, TRIG, HS TROP, CMP, CBCNO, BNP ####[address] Potassium [Moles/Vol] 4.8 mmol/L Normal 3.5-5.1 [facility] Comment on above: Performed By: #### M G, CRP, ESR, TRIG, HS TROP, CMP, CBCNO, BNP ####[address] Protein [Mass/Vol] 5.5 g/dL Low 6.4-8.9 [facility] Comment on above: Performed By: #### M G, CRP, ESR, TRIG, HS TROP, CMP, CBCNO, BNP ####[address] Sodium [Moles/Vol] 131 mmol/L Low 136-145 [facility] Comment on above: Performed By: #### M G, CRP, ESR, TRIG, HS TROP, CMP, CBCNO, BNP ####[address] Urea nitrogen [Mass/Vol] 32 mg/dL High 7-25 [facility] Comment on above: Performed By: #### M G, CRP, ESR, TRIG, HS TROP, CMP, CBCNO, BNP ####[facility] [place] [address] [facility] ECG 12 lead ECGon 08-01-2023 ECG 12 lead ECG Normal [facility] ECH echo transthoracicon ECH echo transthoracic Normal [facility] Erythrocyte Sedimentation Ra salma 08-01-2023 ESR (Bld) [Velocity] 21 mm/h High 0-19 [facility] Comment on above: Result Comment: PERF ORMED BY:[address] [place], [place] [phone] MEDICAL DIRECTORJOSEPH GARCIA M.D. Performed By: #### M G, CRP, ESR, TRIG, HS TROP, CMP, CBCNO, BNP ####[place] [place] [address] [facility] Erythrocyte sedimentation ra te by Photometric methodOrdered By: Geo Thomas on 08-01-2023 ESR Photometric method (Bld) [Velocity] 21 mm/hr 0-19 [facility] Ferritinon 08-01-2023 Ferritin [Mass/Vol] 636.4 ng/mL High 23.9-336.2 [facility] Comment on above: Performed By: #### F ER, [id number], FE and TIBC ####[address] [address] [facility] Folate [Mass/volume] in Seru m or PlasmaOrdered By: Geo Thomas on 08-01-2023 Folate [Mass/Vol] 8.5 ng/mL >5.9 [facility] Comment on above: Folate reference ran ge: >5.9 ng/mlThe WHO technical consultation on folate and vitamin [id number] has determined that folate concentrations lessthan 4 ng/ml are considered deficient. Glucose Poct Glucometerson 0 08-01-2023 Commemt1 Glu2: Cleaned Meter Normal [facility] Comment on above: Result Comment: PERF ORMED BY:[place] [address] [address] NUÑE[place]DA[place], [place] [phone] MEDICAL DIRECTORJOSEPH GARCIA M.D. Performed By: #### G LULS ####Point of Care testing, Glucose [Mass/Vol] 139 mg/dL Normal [facility] Comment on above: Result Comment: [place] om Glucose Reference Range is dependent on time and content of last meal. Glucose of more than 200 mg/dL in a nonstressed, ambulatory subject supports the diagnosis of Diabetes Mellitus. Performed By: #### G LULS ####Point of Care testing, Commemt1 Glu2: Cleaned Meter Normal [facility] Comment on above: Result Comment: PERF ORMED BY:[facility] [place], [place] [phone] MEDICAL DIRECTORJOSEPH GARCIA M.D. Performed By: #### G LULS ####Point of Care testing, Glucose [Mass/Vol] 187 mg/dL Normal [facility] Comment on above: Result Comment: [place] Glucose Reference Range is dependent on time and content of last meal. Glucose of more than 200 mg/dL in a nonstressed, ambulatory subject supports the diagnosis of Diabetes Mellitus. Performed By: #### G LULS ####Point of Care testing, Gram Stainon 08-01-2023 Microscopic observation Gram stain Nom (Unsp spec) Gram Stain Result 1+ Epithelial Cells 1+ White Blood Cells Rare Gram Negative Bacilli PERFORMED BY: [facility] [address] [place] [address] PATHOLOGIST MARKETING SALES SUPERVISOR JOSEPH GARCIA M.D. Normal [facility] Comment on above: Performed By: #### A ERC, GS ####[facility] [address] [place] [address] [facility] Gram stain for investigation of transfusion reactionOrdered By: Geo Thomas on 08-01-2023 Microscopic observation Gram stain Nom (Unsp spec) Rajiv dubliniensis [facility] Hemogram CBC Without Diffon 08-01-2023 Erythrocyte distribution width (RBC) [Ratio] 19.4 % High 12.0-14.8 [facility] Comment on above: Performed By: #### M G, CRP, ESR, TRIG, HS TROP, CMP, CBCNO, BNP ####[address] Hematocrit (Bld) [Volume fraction] 20.0 % Low 38.8-50.0 [facility] Comment on above: Performed By: #### M G, CRP, ESR, TRIG, HS TROP, CMP, CBCNO, BNP ####[address] Hemoglobin (Bld) [Mass/Vol] 6.7 g/dL Low 13.0-17.0 [facility] Comment on above: Performed By: #### M G, CRP, ESR, TRIG, HS TROP, CMP, CBCNO, BNP ####[address] MCH (RBC) [Entitic mass] 30.1 pg Normal 27.5-35.2 [facility] Comment on above: Performed By: #### M G, CRP, ESR, TRIG, HS TROP, CMP, CBCNO, BNP ####[address] MCV (RBC) [Entitic vol] 90.3 fL Normal 83.5-101 [facility] Comment on above: Performed By: #### M G, CRP, ESR, TRIG, HS TROP, CMP, CBCNO, BNP ####[address] Mean Corpuscular HGB Conc 33.4 g/dL Normal 32.5-35.6 [facility] Comment on above: Performed By: #### M G, CRP, ESR, TRIG, HS TROP, CMP, CBCNO, BNP ####[address] Platelet mean volume (Bld) [Entitic vol] 7.3 fL Normal 6.6-10.1 [facility] Comment on above: Performed By: #### M G, CRP, ESR, TRIG, HS TROP, CMP, CBCNO, BNP ####[address] Platelets (Bld) [#/Vol] 282 10*3/uL Normal 150-450 [facility] Comment on above: Performed By: #### M G, CRP, ESR, TRIG, HS TROP, CMP, CBCNO, BNP ####[address] RBC (Bld) [#/Vol] 2.22 10*6/uL Low 3.90-5.60 [facility] Comment on above: Performed By: #### M G, CRP, ESR, TRIG, HS TROP, CMP, CBCNO, BNP ####[address] WBC (Bld) [#/Vol] 10.0 10*3/uL Normal 4.1-10.5 [facility] Comment on above: Performed By: #### M G, CRP, ESR, TRIG, HS TROP, CMP, CBCNO, BNP ####[address] Iron and TIBC Profileon 03-0 8-2023 % Iron Saturation 7.9 % Low 20-50 [facility] Comment on above: Performed By: #### F ER, [id number], FE and TIBC ####[address] Iron [Mass/Vol] 15 ug/dL Low 50-212 [facility] Comment on above: Performed By: #### F ER, [id number], FE and TIBC ####[address] Total Iron Binding Capacity 190 ug/dL Low 255-450 [facility] Comment on above: Performed By: #### F ER, [id number], FE and TIBC ####[address] Transferrin [Mass/Vol] 136 mg/dL Low 203-[address] [facility] Comment on above: Performed By: #### F ER, [id number], FE and TIBC ####[address] [place] [address] [facility] Lactate [Moles/volume] in Se rum or PlasmaOrdered By: Orestes Mejia on 08-01-2023 Lactate [Moles/Vol] 1.0 mmol/L Normal 0.5-2.2 [facility] Comment on above: Result Comment: PERF ORMED BY:[place] [address] [address]DA[place], [place] [phone] MEDICAL DIRECTORJOSEPH GARCIA M.D. Performed By: #### L ACTIC ####[address] [address] [facility] LeukoReduced RBCon LeukoReduced RBC TRANSFUSED 08/01/23 1450 Normal [facility] Magnesiumon 08-01-2023 Magnesium [Mass/Vol] 1.8 mg/dL Low 1.9-2.7 [facility] Comment on above: Performed By: #### M G, CRP, ESR, TRIG, HS TROP, CMP, CBCNO, BNP ####[address] [address] [facility] Microscopic observation Gram stain Nom (Unsp spec)Ordered By: Geo Thomas on 08-01-2023 Gram stain for investigation of transfusion reaction Rajiv dubliniensis [facility] Partial Thromboplastin Timeo n 08-01-2023 aPTT Coag (Bld) [Time] 32.1 s Normal 25.1-36.5 [facility] Comment on above: Result Comment: A he matocrit value greater than 55% may lead to inaccurate results in coagulation testing. Patients having hematocrit values >55% require a special collection tube for coagulation studies. Please contact the laboratory at [phone] for redraw instructions.PERFORMED BY:[place] [address] [address], [place] [phone] MEDICAL SILVIA GARCIA M.D. Performed By: #### P T, PTT ####[address] [address] [facility] Prothrombin Time INRon 07-31 INR Coag (PPP) [Relative time] 1.2 {INR} Normal [facility] Comment on above: Result Comment: INR Therapeutic [...] 3 - 4.5 Performed By: #### P T, PTT ####[address] [address] [facility] PT Coag (PPP) [Time] 13.4 s High 9.0-12.9 [facility] Comment on above: Result Comment: A he matocrit value greater than 55% may lead to inaccurate results in coagulation testing. Patients having hematocrit values >55% require a special collection tube for coagulation studies. Please contact the laboratory at [phone] for redraw instructions. Performed By: #### P T, PTT ####[address] [address] [place] Respiratory (Upper) Panel, P CRon 08-01-2023 Respiratory (Upper) Panel, PCR Normal [facility] Comment on above: Performed By: #### B IOFIRECOVNOTDE, RESP PANEL UPP. ####[address] [address] [facility] Respiratory pathogens DNA an d RNA panel - Nasopharynx by JONES with non-probe detectionOrdered By: Geo Thomas on 08-01-2023 Respiratory pathogens DNA and RNA panel JONES+non-probe (Nph) [facility] Triglycerideson 08-01-2023 Triglyceride [Mass/Vol] 145 mg/dL Normal 35-149 [facility] Comment on above: Result Comment: TRIG ATP III CLASSIFICATION TRIG less than 150 mg/dL Normal TRIG 150-199 mg/dL Borderline high TRIG 200-500 mg/dL High TRIG greater than 500 mg/dL Very high Standard traceable to the Center for Disease Conrtrol and Prevention (CDC) test method.PERFORMED BY:[address] [place], [place] [phone] MEDICAL DIRECTORJOSEPH GARCIA M.D. Performed By: #### M G, CRP, ESR, TRIG, HS TROP, CMP, CBCNO, BNP ####[place] [address] [place] [address] [facility] Troponin I High Sensitivityo n 08-01-2023 Troponin I High Sensitivity 2200.9 pg/mL Off scale high 0.0-20.0 [facility] Comment on above: Result Comment: Crit ical Result : Called to and read back by: DANIELLE BERNAL at: 08/01/2023 19:31:11 by:[id number] BY:[address] [place], [place] [phone] MEDICAL DIRECTORJOSEPH GARCIA M.D. Performed By: #### H S TROP ####[address] [address] [facility] Troponin I High Sensitivity 2429.4 pg/mL Off scale high 0.0-20.0 [facility] Comment on above: Result Comment: Crit ical Result : Called to and read back by: MARC SINGER at: 08/01/2023 16:04:33 by:[email or web address] BY:[address] SPR[place]UEUSKYDAVEN[place], [place] [phone] MEDICAL DIRECTORJOSEPH GARCIA M.D. Performed By: #### H S TROP ####[address] [address] [facility] Troponin I High Sensitivity 2368.8 pg/mL Off scale high 0.0-20.0 [facility] Comment on above: Order Comment: Mae Anaya - Laboratory 9:03 AM please retime the 1030 trop for Johnathon tran for 1200 per rn maame Result Comment: Crit ical Result : Called to and read back by: MAAME RIVERA at: 08/01/2023 13:14:15 by:[email or web address] BY:[address] [place], [place] [phone] MEDICAL DIRECTORJOSEPH Carrington.D. Performed By: #### H S TROP ####[address] [address] [facility] Troponin I High Sensitivity 1764.3 pg/mL Off scale high 0.0-20.0 [facility] Comment on above: Result Comment: Crit ical Result : Called to and read back by: MAAME RIVERA at: 08/01/2023 10:14:05 by:KBPERFORMED BY:[address] [address] [address] [place], [place] [phone] MEDICAL DIRECTORJOSEPH GARCIA M.D. Performed By: #### H S TROP ####[address] [address] [facility] Troponin I High Sensitivity 1310.2 pg/mL Off scale high 0.0-20.0 [facility] Comment on above: Result Comment: Crit ical Result : Called to and read back by: MARC SINGH at: 08/01/2023 08:30:49 by:[id number] BY:[place] [address] [address] [place], [place] [phone] MEDICAL SILVIA GARCIA M.D. Performed By: #### M G, CRP, ESR, TRIG, HS TROP, CMP, CBCNO, BNP ####[address] [address] [facility] Type and Screenon 08-01-2023 ABO and Rh group Nom (Bld) Blood group O Rh(D) positive Normal [facility] Comment on above: Order Comment: Trans fuse now? Y Number of units to transfuse now? 2 Result Comment: PERF ORMED BY:[place] [address] [address] ZAMANLUZ [place], [place] [phone] MEDICAL SILVIA GARCIA M.D. Vit. B12/Folate Profileon Folate 8.5 ng/mL Normal >5.9 [facility] Comment on above: Result Comment: Myra te reference range: >5.9 ng/ml The WHO technical consultation on folate and vitamin b12 deficiencies has determined that folate concentrations less than 4 ng/ml are considered deficient.PERFORMED BY:[address] [place] [address] [address] [place], [place] [phone] MEDICAL DIRECTORJOSEPH GARCIA M.D. Performed By: #### F ER, [id number], FE and TIBC ####[address] [place] [address] [facility] Vitamin B12 ser/plasOrdered By: Geo Thomas on 08-01-2023 Cobalamin (Vitamin B12) [Mass/Vol] 265 pg/mL Normal 180-914 [facility] Comment on above: Performed By: #### F ER, [id number], FE and TIBC ####[address] [place] [address] [facility] XR abdomen 1Von 08-01-2023 XR abdomen 1V Normal [facility] Albumin [Mass/volume] in Ser um or Plasma by Bromocresol green (BCG) dye binding methoOrdered By: Rancho Kay on 07-26-2023 Albumin BCG dye [Mass/Vol] 2.4 g/dL 3.5-5.7 [facility] Calcium [Mass/volume] in Ser um or PlasmaOrdered By: Rancho Kay on 07-26-2023 Calcium [Mass/Vol] 7.3 mg/dL Low 8.6-10.3 [facility] Comment on above: Order Comment: in pt Performed By: #### R ENAL ####[place] [id number] [facility] Capillary blood glucose nic urement by glucometer (mass/volume)Ordered By: Geo Thomas on 07-26-2023 Glucose [Mass/Vol] 217 mg/dL Normal [facility] Comment on above: Result Comment: [place] Glucose Reference Range is dependent on time and content of last meal. Glucose of more than 200 mg/dL in a nonstressed, ambulatory subject supports the diagnosis of Diabetes Mellitus.PERFORMED BY:[address] [address] [place], [place] [phone] MEDICAL DIRECTORJOSEPH GARCIA M.D. Performed By: #### G LULS ####Point of Care testing, Carbon dioxide, total [Moles /volume] in Serum or PlasmaOrdered By: Rancho Kay on 07-26-2023 CO2 [Moles/Vol] 25.7 mmol/L Normal 21.0-31.0 [facility] Comment on above: Order Comment: in pt Performed By: #### R ENAL ####[address] [address] [facility] Chloride [Moles/volume] in S rene or PlasmaOrdered By: Rancho Kay on 07-26-2023 Chloride [Moles/Vol] 101 mmol/L Normal 98-107 [facility] Comment on above: Order Comment: in pt Performed By: #### R ENAL ####[address] [address] [facility] Creatinine [Mass/volume] in Serum or PlasmaOrdered By: Rancho Kay on 07-26-2023 Creatinine [Mass/Vol] 2.73 mg/dL Significan t change up 0.70-1.30 [facility] Comment on above: Order Comment: in pt Performed By: #### R ENAL ####[address] [address] [facility] Glucose Poct Glucometerson 0 07-26-2023 Glucose [Mass/Vol] 150 mg/dL Normal [facility] Comment on above: Result Comment: [facility][note 3] Glucose Reference Range is dependent on time and content of last meal. Glucose of more than 200 mg/dL in a nonstressed, ambulatory subject supports the diagnosis of Diabetes Mellitus.PERFORMED BY:[address] [place], [place] [phone] MEDICAL DIRECTORJOSEPH GARCIA M.D. Performed By: #### G LULS ####Point of Care testing, Glucose [Mass/volume] in Ser um or PlasmaOrdered By: Rancho Kay on 07-26-2023 Glucose [Mass/Vol] 199 mg/dL Significant change up 70-100 [facility] Comment on above: Order Comment: in pt Result Comment: [place] om Glucose Reference Range is dependent on time and content of last meal. Glucose of more than 200 mg/dL in a nonstressed, ambulatory subject supports the diagnosis of Diabetes Mellitus. ADA recommended reference range Performed By: #### R ENAL ####[address] [address] [facility] No Panel InformationOrdered By: Rancho Kay on 07-26-2023 24.111 mL/Min [facility] 28.64 [facility] Phosphate [Mass/volume] in S rene or PlasmaOrdered By: Rancho Kay on 07-26-2023 Phosphate [Mass/Vol] 4.6 mg/dL High 2.5-4.5 [facility] Comment on above: Order Comment: in pt Performed By: #### R ENAL ####[address] [address] [facility] Potassium [Moles/volume] in Serum or PlasmaOrdered By: Rancho Kay on 07-26-2023 Potassium [Moles/Vol] 4.0 mmol/L Normal 3.5-5.1 [facility] Comment on above: Order Comment: in pt Performed By: #### R ENAL ####[address] [address] [facility] Renal Function Panelon 07-25 Albumin [Mass/Vol] 2.4 g/dL Low 3.5-5.7 [facility] Comment on above: Order Comment: in pt Performed By: #### R ENAL ####[address] [address] [facility] Creatinine Clr Calc Pharmacy 28.64 Normal [facility] Comment on above: Order Comment: in pt Result Comment: PERF ORMED BY:[address] [address] [address] [place], [place] [phone] MEDICAL SILIVA GARCIA M.D. Performed By: #### R ENAL ####[address] [address] [place] GFR/1.73 sq M.predicted MDRD (S/P/Bld) [Vol rate/Area] 24.111 mL/min/{1.73_m2} Normal [facility] Comment on above: Order Comment: in pt Performed By: #### R ENAL ####[place] [id number] [facility] Serum or plasma anion gap de terminationOrdered By: Rancho Kay on 07-26-2023 Anion gap [Moles/Vol] 10.3 mmol/L Normal 6.0-15.0 [facility] Comment on above: Order Comment: in pt Performed By: #### R ENAL ####[place] [id number] [facility] Sodium [Moles/volume] in Ser um or PlasmaOrdered By: Rancho Kay on 07-26-2023 Sodium [Moles/Vol] 133 mmol/L Low 136-145 [facility] Comment on above: Order Comment: in pt Performed By: #### R ENAL ####[place] [id number] [facility] Urea nitrogen [Mass/volume] in Serum or PlasmaOrdered By: Rancho Kay on 07-26-2023 Urea nitrogen [Mass/Vol] 19 mg/dL Normal 7-25 [facility] Comment on above: Order Comment: in pt Performed By: #### R ENAL ####[place] [id number] [facility] Automated basophil %Ordered By: Michael Ramírez on 07-25-2023 Basophils/100 WBC (Bld) 1.2 % Normal . [facility] Comment on above: Performed By: #### C BC ####[place] [id number] [facility] Automated basophil countOrde red By: Michael Ramírez on 07-25-2023 Basophils (Bld) [#/Vol] 0.2 10*3/uL Normal 0.0-0.2 [facility] Comment on above: Result Comment: PERF ORMED BY:[address] [address] [address] [place], [place] [id number] MEDICAL DIRECTORJOSEPH GARCIA M.D. Performed By: #### C BC ####[place] [id number] [facility] Automated blood monocyte cou ntOrdered By: Michael Ramírez on 07-25-2023 Monocytes (Bld) [#/Vol] 1.4 10*3/uL High 0.0-0.8 [facility] Comment on above: Performed By: #### C BC ####[address] Automated eosinophil %Ordere d By: Michael Ramírez on 07-25-2023 Eosinophils/100 WBC (Bld) 2.4 % Normal . [facility] Comment on above: Performed By: #### C BC ####[address] Automated eosinophil countOr dered By: Michael Ramírez on 07-25-2023 Eosinophils (Bld) [#/Vol] 0.4 10*3/uL Normal 0.0-0.45 [facility] Comment on above: Performed By: #### C BC ####[address] Automated monocyte %Ordered By: Michael Ramírez on 07-25-2023 Monocytes/100 WBC (Bld) 8.0 % Normal . [facility] Comment on above: Performed By: #### C BC ####[address] Automated neutrophil %Ordere d By: Michael Ramírez on 07-25-2023 Neutrophils/100 WBC (Bld) 73.1 % Normal . [facility] Comment on above: Performed By: #### C BC ####[address] Complete Blood Count Auto Di ffon 07-25-2023 Mean Corpuscular HGB Conc 34.7 g/dL Normal 32.5-35.6 [facility] Comment on above: Performed By: #### C BC ####[place] [id number] [facility] NRBC% 0.1 /100{WBC} Normal 0-0.5 [facility] Comment on above: Performed By: #### C BC ####[place] [id number] [facility] Erythrocyte distribution wid th [Ratio] by Automated countOrdered By: Michael Ramírez on 07-25-2023 Erythrocyte distribution width (RBC) [Ratio] 18.1 % High 12.0-14.8 [facility] Comment on above: Performed By: #### C BC ####[address] Erythrocytes [#/volume] in B lood by Automated countOrdered By: Michael Ramírez on 07-25-2023 RBC (Bld) [#/Vol] 2.67 10*6/uL Low 3.90-5.60 [facility] Comment on above: Performed By: #### C BC ####[place] [id number] [facility] Glucose Poct Glucometerson 0 07-25-2023 Glucose [Mass/Vol] 161 mg/dL Normal [facility] Comment on above: Result Comment: [facility][note 3] Glucose Reference Range is dependent on time and content of last meal. Glucose of more than 200 mg/dL in a nonstressed, ambulatory subject supports the diagnosis of Diabetes Mellitus.PERFORMED BY:[place] [address] [address] LATamikoTracyLUZ [place], [place] [phone] MEDICAL DIRECTORJOSEPH GARCIA M.D. Performed By: #### G LULS ####Point of Care testing, Glucose [Mass/Vol] 145 mg/dL Normal [facility] Comment on above: Result Comment: [facility][note 3] Glucose Reference Range is dependent on time and content of last meal. Glucose of more than 200 mg/dL in a nonstressed, ambulatory subject supports the diagnosis of Diabetes Mellitus.PERFORMED BY:[address] [address] [address] NUÑ[place]DA[place], [place] [phone] MEDICAL SILVIA GARCIA M.D. Performed By: #### G LULS ####Point of Care testing, Glucose [Mass/Vol] 112 mg/dL Normal [facility] Comment on above: Result Comment: [facility][note 3] Glucose Reference Range is dependent on time and content of last meal. Glucose of more than 200 mg/dL in a nonstressed, ambulatory subject supports the diagnosis of Diabetes Mellitus.PERFORMED BY:[address] [place], [place] [phone] MEDICAL DIRECTORJOSEPH GARCIA M.D. Performed By: #### G VALERY ####Point of Care testing, Hematocrit [Volume Fraction] of Blood by Automated countOrdered By: Michael Ramírez on 07-25-2023 Hematocrit (Bld) [Volume fraction] 23.0 % Low 38.8-50.0 [facility] Comment on above: Performed By: #### C BC ####[address] [address] [facility] Hemoglobin [Mass/volume] in BloodOrdered By: Michael Ramírez on 07-25-2023 Hemoglobin (Bld) [Mass/Vol] 8.0 g/dL Low 13.0-17.0 [facility] Comment on above: Performed By: #### C BC ####[address] [address] [facility] Leukocytes [#/volume] correc jewel for nucleated erythrocytes in Blood by Automated counOrdered By: Michael Ramírez on 07-25-2023 WBC corrected for nucl RBC Auto (Bld) [#/Vol] 17.7 10*3/uL 4.1-10.5 [facility] Leukocytes [#/volume] in Blo od by Automated countOrdered By: Michael Ramírez on 07-25-2023 WBC (Bld) [#/Vol] 17.7 10*3/uL High 4.1-10.5 [facility] Comment on above: Performed By: #### C BC ####[place] [id number] [place] Lymphocytes [#/volume] in Bl ood by Automated countOrdered By: Michael Ramírez on 07-25-2023 Lymphocytes (Bld) [#/Vol] 2.7 10*3/uL Normal 1.00-4.8 [facility] Comment on above: Performed By: #### C BC ####[address] Lymphocytes/100 leukocytes i n Blood by Automated countOrdered By: Michael Ramírez on 07-25-2023 Lymphocytes/100 WBC (Bld) 15.3 % Normal . [facility] Comment on above: Performed By: #### C BC ####[address] MCH [Entitic mass] by Automa jewel countOrdered By: Michael Ramírez on 07-25-2023 MCH (RBC) [Entitic mass] 30.0 pg Normal 27.5-35.2 [facility] Comment on above: Performed By: #### C BC ####[address] MCHC Auto (RBC) [Mass/Vol]Or dered By: Michael Ramírez on 07-25-2023 MCHC (RBC) [Mass/Vol] 34.7 g/dL 32.5-35.6 [facility] MCV [Entitic volume] by Auto mated countOrdered By: Michael Ramírez on 07-25-2023 MCV (RBC) [Entitic vol] 86.4 fL Normal 83.5-101 [facility] Comment on above: Performed By: #### C BC ####[address] Neutrophils [#/volume] in Bl ood by Automated countOrdered By: Michael Ramírez on 07-25-2023 Neutrophils (Bld) [#/Vol] 12.9 10*3/uL High 1.8-7.7 [facility] Comment on above: Performed By: #### C BC ####[address] Nucleated erythrocytes [Pres ence] in Blood by Automated countOrdered By: Michael Ramírez on 07-25-2023 Nucleated RBC Auto Ql (Bld) 0.1 /100{WBC} 0-0.5 [facility] Platelet mean volume [Entiti c volume] in Blood by Automated countOrdered By: Michael Ramírez on 07-25-2023 Platelet mean volume (Bld) [Entitic vol] 6.7 fL Normal 6.6-10.1 [facility] Comment on above: Performed By: #### C BC ####[place] [id number] [facility] Platelets [#/volume] in Bloo d by Automated countOrdered By: Michael Ramírez on 07-25-2023 Platelets (Bld) [#/Vol] 571 10*3/uL High 150-450 [facility] Comment on above: Performed By: #### C BC ####[place] [id number] [facility] Renal Function Panelon 07-24 Albumin [Mass/Vol] 2.3 g/dL Low 3.5-5.7 [facility] Comment on above: Performed By: #### R ENAL ####[place] [id number] [facility] Anion gap [Moles/Vol] 10.1 mmol/L Normal 6.0-15.[address] [facility] Comment on above: Performed By: #### R ENAL ####[place] [id number] [facility] Calcium [Mass/Vol] 7.3 mg/dL Low 8.6-10.3 [facility] Comment on above: Performed By: #### R ENAL ####[place] [id number] [facility] Chloride [Moles/Vol] 96 mmol/L Low 98-107 [facility] Comment on above: Performed By: #### R ENAL ####[place] [id number] [facility] CO2 [Moles/Vol] 29.3 mmol/L Normal 21.0-31.0 [facility] Comment on above: Performed By: #### R ENAL ####[place] [id number] [facility] Creatinine [Mass/Vol] 3.28 mg/dL Significan t change up 0.70-1.30 [facility] Comment on above: Performed By: #### R ENAL ####[address] [address] [facility] Creatinine Clr Calc Pharmacy 24.03 Normal [facility] Comment on above: Result Comment: PERF ORMED BY:[address] [place] [phone] MEDICAL SILVIA GARCIA M.D. Performed By: #### R ENAL ####[address] [address] [facility] GFR/1.73 sq M.predicted MDRD (S/P/Bld) [Vol rate/Area] 19.345 mL/min/{1.73_m2} Normal [facility] Comment on above: Performed By: #### R ENAL ####[place] [id number] [facility] Glucose [Mass/Vol] 84 mg/dL Normal 70-100 [facility] Comment on above: Result Comment: [facility][note 3] Glucose Reference Range is dependent on time and content of last meal. Glucose of more than 200 mg/dL in a nonstressed, ambulatory subject supports the diagnosis of Diabetes Mellitus. ADA recommended reference range Performed By: #### R ENAL ####[address] [address] [facility] Phosphate [Mass/Vol] 5.1 mg/dL High 2.5-4.5 [facility] Comment on above: Performed By: #### R ENAL ####[address] [address] [facility] Potassium [Moles/Vol] 4.4 mmol/L Normal 3.5-5.1 [facility] Comment on above: Performed By: #### R ENAL ####[place] [id number] [facility] Sodium [Moles/Vol] 131 mmol/L Low 136-145 [facility] Comment on above: Performed By: #### R ENAL ####[address] [place] [address] [facility] Urea nitrogen [Mass/Vol] 23 mg/dL Normal 7-25 [facility] Comment on above: Performed By: #### R ENAL ####[address] [address] [facility] Glucose Poct Glucometerson 0 07-24-2023 Glucose [Mass/Vol] 140 mg/dL Normal [facility] Comment on above: Result Comment: [place] om Glucose Reference Range is dependent on time and content of last meal. Glucose of more than 200 mg/dL in a nonstressed, ambulatory subject supports the diagnosis of Diabetes Mellitus.PERFORMED BY:[address] [place], [place] [phone] MEDICAL DIRECTORJOSEPH GARCIA M.D. Performed By: #### G LULS ####Point of Care testing, Commemt1 Glu2: Cleaned Meter Normal [facility] Comment on above: Result Comment: PERF ORMED BY:[address] [place], [place] [phone] MEDICAL DIRECTORJOSEPH GARCIA M.D. Performed By: #### G LULS ####Point of Care testing, Glucose [Mass/Vol] 74 mg/dL Normal [facility] Comment on above: Result Comment: [place] om Glucose Reference Range is dependent on time and content of last meal. Glucose of more than 200 mg/dL in a nonstressed, ambulatory subject supports the diagnosis of Diabetes Mellitus. Performed By: #### G LULS ####Point of Care testing, Commemt1 Glu2: Cleaned Meter Normal [facility] Comment on above: Result Comment: PERF ORMED BY:[address] [place], [place] [phone] MEDICAL DIRECTORJOSEPH GARCIA M.D. Performed By: #### G LULS ####Point of Care testing, Glucose [Mass/Vol] 158 mg/dL Normal [facility] Comment on above: Result Comment: [place] om Glucose Reference Range is dependent on time and content of last meal. Glucose of more than 200 mg/dL in a nonstressed, ambulatory subject supports the diagnosis of Diabetes Mellitus. Performed By: #### G LULS ####Point of Care testing, Commemt1 Glu2: Cleaned Meter Normal [facility] Comment on above: Result Comment: PERF ORMED BY:[address] [place], [place] [phone] MEDICAL DIRECTORJOSEPH GARCIA M.D. Performed By: #### G LULS ####Point of Care testing, Glucose [Mass/Vol] 111 mg/dL Normal [facility] Comment on above: Result Comment: [place] Glucose Reference Range is dependent on time and content of last meal. Glucose of more than 200 mg/dL in a nonstressed, ambulatory subject supports the diagnosis of Diabetes Mellitus. Performed By: #### G LULS ####Point of Care testing, No Panel InformationOrdered By: Vania Chacon on 07-24-2023 Glu2: cleaned meter [facility] Renal Function Panelon Albumin [Mass/Vol] 2.3 g/dL Low 3.5-5.7 [facility] Comment on above: Performed By: #### R ENAL ####[place] [id number] [facility] Anion gap [Moles/Vol] 11.5 mmol/L Normal 6.0-15.0 [facility] Comment on above: Performed By: #### R ENAL ####[place] [id number] [facility] Calcium [Mass/Vol] 7.2 mg/dL Low 8.6-10.3 [facility] Comment on above: Performed By: #### R ENAL ####[address] [address] [facility] Chloride [Moles/Vol] 98 mmol/L Normal 98-107 [facility] Comment on above: Performed By: #### R ENAL ####[place] [id number] [place] CO2 [Moles/Vol] 28.8 mmol/L Normal 21.0-31.0 [facility] Comment on above: Performed By: #### R ENAL ####[address] [address] [facility] Creatinine [Mass/Vol] 2.77 mg/dL Significan t change up 0.70-1.30 [facility] Comment on above: Performed By: #### R ENAL ####[place] [id number] [facility] Creatinine Clr Calc Pharmacy 27.90 Normal [facility] Comment on above: Result Comment: PERF ORMED BY:[address] [place], [place] [phone] MEDICAL DIRECTORJOSEPH GARCIA M.D. Performed By: #### R ENAL ####[place] [id number] [facility] GFR/1.73 sq M.predicted MDRD (S/P/Bld) [Vol rate/Area] 23.694 mL/min/{1.73_m2} Normal [facility] Comment on above: Performed By: #### R ENAL ####[place] [id number] [facility] Glucose [Mass/Vol] 94 mg/dL Normal 70-100 [facility] Comment on above: Result Comment: [facility][note 3] Glucose Reference Range is dependent on time and content of last meal. Glucose of more than 200 mg/dL in a nonstressed, ambulatory subject supports the diagnosis of Diabetes Mellitus. ADA recommended reference range Performed By: #### R ENAL ####[place] [id number] [facility] Phosphate [Mass/Vol] 4.5 mg/dL Normal 2.5-4.5 [facility] Comment on above: Performed By: #### R ENAL ####[place] [id number] [facility] Potassium [Moles/Vol] 4.3 mmol/L Normal 3.5-5.1 [facility] Comment on above: Performed By: #### R ENAL ####[place] [id number] [facility] Sodium [Moles/Vol] 134 mmol/L Low 136-145 [facility] Comment on above: Performed By: #### R ENAL ####[address] Urea nitrogen [Mass/Vol] 18 mg/dL Normal 7-25 [facility] Comment on above: Performed By: #### R ENAL ####[place] [id number] [facility] Complete Blood Count Auto Di ffon 07-23-2023 Basophils (Bld) [#/Vol] 0.2 10*3/uL Normal 0.0-0.2 [facility] Comment on above: Result Comment: PERF ORMED BY:[address] [place], [place] [phone] MEDICAL DIRECTORJOSEPH GARCIA M.D. Performed By: #### C BC ####[address] Basophils/100 WBC (Bld) 1.1 % Normal . [facility] Comment on above: Performed By: #### C BC ####[address] Eosinophils (Bld) [#/Vol] 0.4 10*3/uL Normal 0.0-0.45 [facility] Comment on above: Performed By: #### C BC ####[address] Eosinophils/100 WBC (Bld) 2.2 % Normal . [facility] Comment on above: Performed By: #### C BC ####[address] Erythrocyte distribution width (RBC) [Ratio] 17.8 % High 12.0-14.8 [facility] Comment on above: Performed By: #### C BC ####[address] Hematocrit (Bld) [Volume fraction] 22.8 % Low 38.8-50.0 [facility] Comment on above: Performed By: #### C BC ####[address] Hemoglobin (Bld) [Mass/Vol] 7.8 g/dL Low 13.0-17.0 [facility] Comment on above: Performed By: #### C BC ####[address] Lymphocytes (Bld) [#/Vol] 3.0 10*3/uL Normal 1.00-4.8 [facility] Comment on above: Performed By: #### C BC ####[address] Lymphocytes/100 WBC (Bld) 16.4 % Normal . [facility] Comment on above: Performed By: #### C BC ####[address] MCH (RBC) [Entitic mass] 29.7 pg Normal 27.5-35.2 [facility] Comment on above: Performed By: #### C BC ####[address] MCV (RBC) [Entitic vol] 87.0 fL Normal 83.5-101 [facility] Comment on above: Performed By: #### C BC ####[address] Mean Corpuscular HGB Conc 34.1 g/dL Normal 32.5-35.6 [facility] Comment on above: Performed By: #### C BC ####[address] Monocytes (Bld) [#/Vol] 1.3 10*3/uL High 0.0-0.8 [facility] Comment on above: Performed By: #### C BC ####[address] Monocytes/100 WBC (Bld) 7.0 % Normal . [facility] Comment on above: Performed By: #### C BC ####[address] [address] [facility] Neutrophils (Bld) [#/Vol] 13.3 10*3/uL High 1.8-7.7 [facility] Comment on above: Performed By: #### C BC ####[address] [address] [facility] Neutrophils/100 WBC (Bld) 73.3 % Normal . [facility] Comment on above: Performed By: #### C BC ####[address] [address] [facility] NRBC% 0.1 /100{WBC} Normal 0-0.5 [facility] Comment on above: Performed By: #### C BC ####[address] [address] [facility] Platelet mean volume (Bld) [Entitic vol] 7.1 fL Normal 6.6-10.1 [facility] Comment on above: Performed By: #### C BC ####[address] [address] [facility] Platelets (Bld) [#/Vol] 541 10*3/uL High 150-450 [facility] Comment on above: Performed By: #### C BC ####[address] [address] [facility] RBC (Bld) [#/Vol] 2.62 10*6/uL Low 3.90-5.60 [facility] Comment on above: Performed By: #### C BC ####[address] [address] [facility] WBC (Bld) [#/Vol] 18.2 10*3/uL High 4.1-10.5 [facility] Comment on above: Performed By: #### C BC ####[address] [address] [facility] Glucose Poct Glucometerson 0 07-23-2023 Glucose [Mass/Vol] 167 mg/dL Normal [facility] Comment on above: Result Comment: [place] Glucose Reference Range is dependent on time and content of last meal. Glucose of more than 200 mg/dL in a nonstressed, ambulatory subject supports the diagnosis of Diabetes Mellitus.PERFORMED BY:[address] [address] [address] LATamikoTracyLUZ [place], [place] [phone] MEDICAL DIRECTORJOSEPH GARCIA M.D. Performed By: #### G LULS ####Point of Care testing, Glucose [Mass/Vol] 174 mg/dL Normal [facility] Comment on above: Result Comment: [facility][note 3] Glucose Reference Range is dependent on time and content of last meal. Glucose of more than 200 mg/dL in a nonstressed, ambulatory subject supports the diagnosis of Diabetes Mellitus.PERFORMED BY:[address] [address] [address] ZAMANLUZ [place], [place] [phone] MEDICAL DIRECTORJOSEPH GARCIA M.D. Performed By: #### G LULS ####Point of Care testing, Commemt1 Glu2: Cleaned Meter Normal [facility] Comment on above: Result Comment: PERF ORMED BY:[address] [place] [place], [place] [phone] MEDICAL DIRECTORJOSEPH GARCIA M.D. Performed By: #### G LULS ####Point of Care testing, Glucose [Mass/Vol] 137 mg/dL Normal [facility] Comment on above: Result Comment: [facility][note 3] Glucose Reference Range is dependent on time and content of last meal. Glucose of more than 200 mg/dL in a nonstressed, ambulatory subject supports the diagnosis of Diabetes Mellitus. Performed By: #### G LULS ####Point of Care testing, Renal Function Panelon 07-23 Albumin [Mass/Vol] 2.3 g/dL Low 3.5-5.7 [facility] Comment on above: Performed By: #### R ENAL ####[facility] [place] [address] [facility] [place] [address] [place] Anion gap [Moles/Vol] 11.3 mmol/L Normal 6.0-15.0 [facility] Comment on above: Performed By: #### R ENAL ####[place] [id number] [facility] Calcium [Mass/Vol] 7.3 mg/dL Low 8.6-10.3 [facility] Comment on above: Performed By: #### R ENAL ####[address] Chloride [Moles/Vol] 99 mmol/L Normal 98-107 [facility] Comment on above: Performed By: #### R ENAL ####[place] [id number] [facility] CO2 [Moles/Vol] 23.6 mmol/L Normal 21.0-31.0 [facility] Comment on above: Performed By: #### R ENAL ####[place] [id number] [facility] Creatinine [Mass/Vol] 3.72 mg/dL Significan t change up 0.70-1.30 [facility] Comment on above: Performed By: #### R ENAL ####[address] Creatinine Clr Calc Pharmacy 20.87 Normal [facility] Comment on above: Result Comment: PERF ORMED BY:[address] [place], [place] [phone] MEDICAL SILVIA GARCIA M.D. Performed By: #### R ENAL ####[place] [id number] [facility] GFR/1.73 sq M.predicted MDRD (S/P/Bld) [Vol rate/Area] 16.632 mL/min/{1.73_m2} Normal [facility] Comment on above: Performed By: #### R ENAL ####[place] [id number] [facility] Glucose [Mass/Vol] 118 mg/dL High 70-100 [facility] Comment on above: Result Comment: [facility][note 3] Glucose Reference Range is dependent on time and content of last meal. Glucose of more than 200 mg/dL in a nonstressed, ambulatory subject supports the diagnosis of Diabetes Mellitus. ADA recommended reference range Performed By: #### R ENAL ####[facility] [place] [address] [facility] Phosphate [Mass/Vol] 4.7 mg/dL High 2.5-4.5 [facility] Comment on above: Performed By: #### R ENAL ####[address] [place] [address] [facility] Potassium [Moles/Vol] 3.9 mmol/L Normal 3.5-5.1 [facility] Comment on above: Performed By: #### R ENAL ####[address] [address] [facility] Sodium [Moles/Vol] 130 mmol/L Low 136-145 [facility] Comment on above: Performed By: #### R ENAL ####[address] [address] [facility] Urea nitrogen [Mass/Vol] 25 mg/dL Normal 7-25 [facility] Comment on above: Performed By: #### R ENAL ####[address] [address] [facility] Glucose Poct Glucometerson 0 07-22-2023 Glucose [Mass/Vol] 138 mg/dL Normal [facility] Comment on above: Result Comment: [facility][note 3] Glucose Reference Range is dependent on time and content of last meal. Glucose of more than 200 mg/dL in a nonstressed, ambulatory subject supports the diagnosis of Diabetes Mellitus.PERFORMED BY:[address] [place], [place] [phone] MEDICAL DIRECTORJOSEPH GARCIA M.D. Performed By: #### G LUANURAG ####Point of Care testing, Glucose [Mass/Vol] 108 mg/dL Normal [facility] Comment on above: Result Comment: [facility][note 3] Glucose Reference Range is dependent on time and content of last meal. Glucose of more than 200 mg/dL in a nonstressed, ambulatory subject supports the diagnosis of Diabetes Mellitus.PERFORMED BY:[address] [address] [place] [place], [place] [phone] MEDICAL DIRECTORJOSEPH GARCIA M.D. Performed By: #### G LULS ####Point of Care testing, Commemt1 Glu2: Cleaned Meter Normal [facility] Comment on above: Result Comment: PERF ORMED BY:[address] [address] [place] [place], [place] [phone] MEDICAL DIRECTORJOSEPH GARCIA M.D. Performed By: #### G LULS ####Point of Care testing, Glucose [Mass/Vol] 131 mg/dL Normal [facility] Comment on above: Result Comment: [place] om Glucose Reference Range is dependent on time and content of last meal. Glucose of more than 200 mg/dL in a nonstressed, ambulatory subject supports the diagnosis of Diabetes Mellitus. Performed By: #### G LULS ####Point of Care testing, Commemt1 Glu2: Cleaned Meter Normal [facility] Comment on above: Result Comment: PERF ORMED BY:[address] [place], [place] [phone] MEDICAL DIRECTORJOSEPH GARCIA M.D. Performed By: #### G LULS ####Point of Care testing, Glucose [Mass/Vol] 121 mg/dL Normal [facility] Comment on above: Result Comment: [place] om Glucose Reference Range is dependent on time and content of last meal. Glucose of more than 200 mg/dL in a nonstressed, ambulatory subject supports the diagnosis of Diabetes Mellitus. Performed By: #### G LULS ####Point of Care testing, Renal Function Panelon 07-22 Albumin [Mass/Vol] 2.5 g/dL Low 3.5-5.7 [facility] Comment on above: Performed By: #### R ENAL ####[address] [address] [facility] Anion gap [Moles/Vol] 10.9 mmol/L Normal 6.0-15.0 [facility] Comment on above: Performed By: #### R ENAL ####[id number] [facility] Calcium [Mass/Vol] 7.5 mg/dL Low 8.6-10.3 [facility] Comment on above: Performed By: #### R ENAL ####[id number] [facility] Chloride [Moles/Vol] 100 mmol/L Normal 98-107 [facility] Comment on above: Performed By: #### R ENAL ####[id number] [facility] CO2 [Moles/Vol] 25.1 mmol/L Normal 21.0-31.0 [facility] Comment on above: Performed By: #### R ENAL ####[id number] [facility] Creatinine [Mass/Vol] 2.84 mg/dL Significan t change up 0.70-1.30 [facility] Comment on above: Performed By: #### R ENAL ####[address] Creatinine Clr Calc Pharmacy 27.27 Normal [facility] Comment on above: Result Comment: PERF ORMED BY:[address] [place], [place] [phone] MEDICAL SILVIA GARCIA M.D. Performed By: #### R ENAL ####[id number] [facility] GFR/1.73 sq M.predicted MDRD (S/P/Bld) [Vol rate/Area] 22.995 mL/min/{1.73_m2} Normal [facility] Comment on above: Performed By: #### R ENAL ####[id number] [facility] Glucose [Mass/Vol] 103 mg/dL High 70-100 [facility] Comment on above: Result Comment: [place] Glucose Reference Range is dependent on time and content of last meal. Glucose of more than 200 mg/dL in a nonstressed, ambulatory subject supports the diagnosis of Diabetes Mellitus. ADA recommended reference range Performed By: #### R ENAL ####[address] [place] [address] [facility] Phosphate [Mass/Vol] 4.0 mg/dL Normal 2.5-4.5 [facility] Comment on above: Performed By: #### R ENAL ####[id number] [facility] Potassium [Moles/Vol] 4.0 mmol/L Normal 3.5-5.1 [facility] Comment on above: Performed By: #### R ENAL ####[id number] [facility] Sodium [Moles/Vol] 132 mmol/L Low 136-145 [facility] Comment on above: Performed By: #### R ENAL ####[id number] [facility] Urea nitrogen [Mass/Vol] 17 mg/dL Normal 7-25 [facility] Comment on above: Performed By: #### R ENAL ####[id number] [facility] Acanthocytes [Presence] in B lood by Light microscopyOrdered By: Tello Nava on 07-21-2023 Acanthocytes LM Ql (Bld) Slight [facility] Anisocytosis [Presence] in B lood by Light microscopyOrdered By: Tello Nava on 07-21-2023 Anisocytosis Ql (Bld) Moderate Normal [facility] Comment on above: Performed By: #### S CAN CBC ####[id number] [facility] Basic Metabolic Panelon 06-27 Anion gap [Moles/Vol] 10.2 mmol/L Normal 6.0-15.0 [facility] Comment on above: Performed By: #### F E PRO, CRP, BMP ####[address] [place] [address] [facility] Calcium [Mass/Vol] 7.3 mg/dL Low 8.6-10.3 [facility] Comment on above: Performed By: #### F E PRO, CRP, BMP ####[address] [place] [address] [facility] Chloride [Moles/Vol] 96 mmol/L Low 98-107 [facility] Comment on above: Performed By: #### F E PRO, CRP, BMP ####[address] [address] [facility] CO2 [Moles/Vol] 28.9 mmol/L Normal 21.0-31.0 [facility] Comment on above: Performed By: #### F E PRO, CRP, BMP ####[id number] [facility] Creatinine [Mass/Vol] 4.21 mg/dL Significan t change up 0.70-1.30 [facility] Comment on above: Performed By: #### F E PRO, CRP, BMP ####[id number] [facility] Creatinine Clr Calc Pharmacy 18.37 Normal [facility] Comment on above: Result Comment: PERF ORMED BY:[address] [place], [place] [phone] MEDICAL DIRECTORJOSEPH GARCIA M.D. Performed By: #### F E PRO, CRP, BMP ####[id number] [facility] GFR/1.73 sq M.predicted MDRD (S/P/Bld) [Vol rate/Area] 14.338 mL/min/{1.73_m2} Normal [facility] Comment on above: Performed By: #### F E PRO, CRP, BMP ####[address] [address] [facility] Glucose [Mass/Vol] 112 mg/dL High 70-100 [facility] Comment on above: Result Comment: [place] Glucose Reference Range is dependent on time and content of last meal. Glucose of more than 200 mg/dL in a nonstressed, ambulatory subject supports the diagnosis of Diabetes Mellitus. ADA recommended reference range Performed By: #### F E PRO, CRP, BMP ####[address] [place] [id number] [facility] Potassium [Moles/Vol] 4.1 mmol/L Normal 3.5-5.1 [facility] Comment on above: Performed By: #### F E PRO, CRP, BMP ####[address] [place] [id number] [facility] Sodium [Moles/Vol] 131 mmol/L Low 136-145 [facility] Comment on above: Performed By: #### F E PRO, CRP, BMP ####[id number] [facility] Urea nitrogen [Mass/Vol] 34 mg/dL High 7-25 [facility] Comment on above: Performed By: #### F E PRO, CRP, BMP ####[id number] [facility] C reactive protein [Mass/vol ume] in Serum or PlasmaOrdered By: Michael Ramírez on 07-21-2023 CRP [Mass/Vol] 8.6 mg/dL 0.0-0.5 [facility] C-Reactive Proteinon 024 C-Reactive Protein 8.6 mg/dL High 0.0-0.5 [facility] Comment on above: Result Comment: PERF ORMED BY:[address] [place], [place] [phone] MEDICAL DIRECTORJOSEPH GARCIA M.D. Performed By: #### F E PRO, CRP, BMP ####[address] [place] [address] [facility] FE PROon 07-21-2023 % Iron Saturation 27.0 % Normal 20-50 [facility] Comment on above: Performed By: #### F E PRO, CRP, BMP ####[address] [id number] [facility] Total Iron Binding Capacity 185 ug/dL Low 255-450 [facility] Comment on above: Performed By: #### F E PRO, CRP, BMP ####[address] [address] [facility] Ferritin [Mass/volume] in Se rum or PlasmaOrdered By: Rancho Kay on 07-21-2023 Ferritin [Mass/Vol] 1089.8 ng/mL High 23.9-336.2 [facility] Comment on above: Result Comment: PERF ORMED BY:[address] [address] [address] [place], [place] [phone] MEDICAL DIRECTORJOSEPH GARCIA M.D. Performed By: #### F E PRO, CRP, BMP ####[address] [address] [facility] Glucose Poct Glucometerson 0 07-21-2023 Commemt1 Glu2: Cleaned Meter Normal [facility] Comment on above: Result Comment: PERF ORMED BY:[address] [place], [place] [phone] MEDICAL DIRECTORJOSEPH GARCIA M.D. Performed By: #### G LULS ####Point of Care testing, Glucose [Mass/Vol] 155 mg/dL Normal [facility] Comment on above: Result Comment: [facility][note 3] Glucose Reference Range is dependent on time and content of last meal. Glucose of more than 200 mg/dL in a nonstressed, ambulatory subject supports the diagnosis of Diabetes Mellitus. Performed By: #### G LULS ####Point of Care testing, Commemt1 Glu2: Cleaned Meter Normal [facility] Comment on above: Result Comment: PERF ORMED BY:[address] [address] [address] [place], [place] [phone] MEDICAL SILVIA GARCIA M.D. Performed By: #### G LULS ####Point of Care testing, Glucose [Mass/Vol] 161 mg/dL Normal [facility] Comment on above: Result Comment: [facility][note 3] Glucose Reference Range is dependent on time and content of last meal. Glucose of more than 200 mg/dL in a nonstressed, ambulatory subject supports the diagnosis of Diabetes Mellitus. Performed By: #### G LULS ####Point of Care testing, Commemt1 Glu2: Cleaned Meter Normal [facility] Comment on above: Result Comment: PERF ORMED BY:[facility] [place], [place] [phone] MEDICAL DIRECTORJOSEPH GARCIA M.D. Performed By: #### G LULS ####Point of Care testing, Glucose [Mass/Vol] 121 mg/dL Normal [facility] Comment on above: Result Comment: [place] om Glucose Reference Range is dependent on time and content of last meal. Glucose of more than 200 mg/dL in a nonstressed, ambulatory subject supports the diagnosis of Diabetes Mellitus. Performed By: #### G LULS ####Point of Care testing, Hypochromia LM Ql (Bld)Order ed By: Tello Nava on 07-21-2023 Hypochromia Ql (Bld) Slight [facility] Iron [Mass/volume] in Serum or PlasmaOrdered By: Rancho Rahul on 07-21-2023 Iron [Mass/Vol] 50 ug/dL Normal 50-212 [facility] Comment on above: Performed By: #### F E PRO, CRP, BMP ####[facility] [address] [place] [address] [facility] Iron binding capacity [Mass/ volume] in Serum or PlasmaOrdered By: Rancho Rahul on 07-21-2023 Iron binding capacity [Mass/Vol] 185 ug/dL 255-450 [facility] Iron saturation [Mass Fracti on] in Serum or PlasmaOrdered By: Rancho Rahul on 07-21-2023 Iron saturation [Mass fraction] 27.0 % 20-50 [facility] Microcytes LM Ql (Bld)Ordere d By: Tello Nava on 07-21-2023 Microcytes Ql (Bld) Moderate [facility] Ovalocyte detectionOrdered B y: Tello Nava on 07-21-2023 Ovalocytes LM Ql (Bld) Slight Fi [facility] Platelet adequacy [Presence] in Blood by Light microscopyOrdered By: Tello Nava on 07-21-2023 Platelets LM Ql (Bld) Increased Normal [facility] Platelet morphology finding [Identifier] in BloodOrdered By: Tello Nava on 07-21-2023 Platelet morphology finding Nom (Bld) Normal Normal [facility] Poikilocytosis [Presence] in Blood by Light microscopyOrdered By: Tello Nava on 07-21-2023 Poikilocytosis LM Ql (Bld) Slight [facility] Polychromasia [Presence] in Blood by Light microscopyOrdered By: Tello Nava on 07-21-2023 Polychromasia LM Ql (Bld) Slight [facility] RBC morphologyOrdered By: Dc Nava on 07-21-2023 RBC morphology finding Nom (Bld) N/A [facility] Scan and CBCon 07-21-2023 Acanthocytes Slight Normal [facility] Comment on above: Performed By: #### S CAN CBC ####[place] [id number] [facility] Basophils (Bld) [#/Vol] 0.1 10*3/uL Normal 0.0-0.2 [facility] Comment on above: Performed By: #### S CAN CBC ####[address] [address] [facility] Basophils/100 WBC (Bld) 0.8 % Normal . [facility] Comment on above: Performed By: #### S CAN CBC ####[facility] [place] [address] [facility] Eosinophils (Bld) [#/Vol] 0.5 10*3/uL High 0.0-0.45 [facility] Comment on above: Performed By: #### S CAN CBC ####[facility] [place] [address] [place] Eosinophils/100 WBC (Bld) 2.7 % Normal . [facility] Comment on above: Performed By: #### S CAN CBC ####[address] Erythrocyte distribution width (RBC) [Ratio] 17.3 % High 12.0-14.8 [facility] Comment on above: Performed By: #### S CAN CBC ####[address] Hematocrit (Bld) [Volume fraction] 22.6 % Low 38.8-50.0 [facility] Comment on above: Performed By: #### S CAN CBC ####[address] Hemoglobin (Bld) [Mass/Vol] 7.7 g/dL Low 13.0-17.0 [facility] Comment on above: Performed By: #### S CAN CBC ####[address] Hypochromasia Slight Normal [facility] Comment on above: Performed By: #### S CAN CBC ####[address] Lymphocytes (Bld) [#/Vol] 3.0 10*3/uL Normal 1.00-4.8 [facility] Comment on above: Performed By: #### S CAN CBC ####[address] Lymphocytes/100 WBC (Bld) 15.3 % Normal . [facility] Comment on above: Performed By: #### S CAN CBC ####[address] MCH (RBC) [Entitic mass] 29.4 pg Normal 27.5-35.2 [facility] Comment on above: Performed By: #### S CAN CBC ####[address] MCV (RBC) [Entitic vol] 85.8 fL Normal 83.5-101 [facility] Comment on above: Performed By: #### S CAN CBC ####[address] Mean Corpuscular HGB Conc 34.2 g/dL Normal 32.5-35.6 [facility] Comment on above: Performed By: #### S CAN CBC ####[address] Microcytosis Moderate Normal [facility] Comment on above: Performed By: #### S CAN CBC ####[address] Monocytes (Bld) [#/Vol] 1.6 10*3/uL High 0.0-0.8 [facility] Comment on above: Performed By: #### S CAN CBC ####[address] Monocytes/100 WBC (Bld) 8.0 % Normal . [facility] Comment on above: Performed By: #### S CAN CBC ####[address] Neutrophils (Bld) [#/Vol] 14.6 10*3/uL High 1.8-7.7 [facility] Comment on above: Performed By: #### S CAN CBC ####[address] Neutrophils/100 WBC (Bld) 73.2 % Normal . [facility] Comment on above: Performed By: #### S CAN CBC ####[address] NRBC% 0.0 /100{WBC} Normal 0-0.5 [facility] Comment on above: Performed By: #### S CAN CBC ####[address] Ovalocytes Slight Normal [facility] Comment on above: Performed By: #### S CAN CBC ####[address] Platelet Estimate Increased Normal Normal [facility] Comment on above: Performed By: #### S CAN CBC ####[address] Platelet mean volume (Bld) [Entitic vol] 7.0 fL Normal 6.6-10.1 [facility] Comment on above: Performed By: #### S CAN CBC ####[place] [id number] [facility] Platelet Morphology Normal Normal Normal [facility] Comment on above: Result Comment: PERF ORMED BY:[address] [place], [place] [phone] MEDICAL SILVIA GARCIA M.D. Performed By: #### S CAN CBC ####[place] [id number] [facility] Platelets (Bld) [#/Vol] 489 10*3/uL High 150-450 [facility] Comment on above: Performed By: #### S CAN CBC ####[address] Poikilocytosis Slight Normal [facility] Comment on above: Performed By: #### S CAN CBC ####[place] [id number] [facility] Polychromasia Slight Normal [facility] Comment on above: Performed By: #### S CAN CBC ####[address] RBC (Bld) [#/Vol] 2.64 10*6/uL Low 3.90-5.60 [facility] Comment on above: Performed By: #### S CAN CBC ####[place] [id number] [facility] Schistocytes Slight Normal [facility] Comment on above: Performed By: #### S CAN CBC ####[place] [id number] [facility] WBC (Bld) [#/Vol] 19.9 10*3/uL High 4.1-10.5 [facility] Comment on above: Performed By: #### S CAN CBC ####[place] [id number] [facility] Schistocytes [Presence] in B lood by Light microscopyOrdered By: Tello Nava on 07-21-2023 Schistocytes LM Ql (Bld) Slight [facility] Transferrin [Mass/volume] in Serum or PlasmaOrdered By: Rancho Kay on 07-21-2023 Transferrin [Mass/Vol] 132 mg/dL Low 203-362 [facility] Comment on above: Performed By: #### F E PRO, CRP, BMP ####[facility] [address] Amphetamine Screen Ql (U)Ord ered By: Alfonso Chavez on 07-20-2023 Amphetamines Ql (U) Negative Negative [facility] Automated erythrocytes count in urine sediment (number/area)Ordered By: Tello Nava on 07-20-2023 RBC Auto (Urine sed) [#/Area] Innumerable [HPF] 0-4 [facility] Automated leukocytes count i n urine sediment (number/area)Ordered By: Tello Nava on 07-20-2023 WBC Auto (Urine sed) [#/Area] 20-49 [HPF] 0-4 [facility] Automated urine color determ inationOrdered By: Tello Nava on 07-20-2023 Color (U) [place] Critically abnormal Yellow [facility] Comment on above: Order Comment: Name Collection Type:: Clean-Voided Midstream Performed By: #### A DDONUAPLUS, ANTONIO, UCREA, CUU ####[address] Automated urine hyaline cast s count (number/volume)Ordered By: Tello Nava on 07-20-2023 Hyaline casts Auto (U) [#/Vol] 1-2 [LPF] 0-1 [facility] Barbiturates [Presence] in U rine by Screen methodOrdered By: Alfonso Chavez on 07-20-2023 Barbiturates Screen Ql (U) Negative Negative [facility] Basic Metabolic Panelon 06-27 Anion gap [Moles/Vol] 9.6 mmol/L Normal 6.0-15.0 [facility] Comment on above: Performed By: #### B MP, SCAN CBC ####[address] [address] [facility] Calcium [Mass/Vol] 7.3 mg/dL Low 8.6-10.3 [facility] Comment on above: Performed By: #### B MP, SCAN CBC ####[address] [address] [place] Chloride [Moles/Vol] 97 mmol/L Low 98-107 [facility] Comment on above: Performed By: #### B MP, SCAN CBC ####[address] [address] [facility] CO2 [Moles/Vol] 29.3 mmol/L Normal 21.0-31.0 [facility] Comment on above: Performed By: #### B MP, SCAN CBC ####[place] [id number] [facility] Creatinine [Mass/Vol] 3.39 mg/dL Significan t change up 0.70-1.30 [facility] Comment on above: Performed By: #### B MP, SCAN CBC ####[place] [id number] [place] Creatinine Clr Calc Pharmacy 22.74 Normal [facility] Comment on above: Result Comment: PERF ORMED BY:[address] [place], [place] [phone] MEDICAL SILVIA GARCIA M.D. Performed By: #### B MP, SCAN CBC ####[address] [address] [place] GFR/1.73 sq M.predicted MDRD (S/P/Bld) [Vol rate/Area] 18.594 mL/min/{1.73_m2} Normal [facility] Comment on above: Performed By: #### B MP, SCAN CBC ####[address] [address] [place] Glucose [Mass/Vol] 145 mg/dL High 70-100 [facility] Comment on above: Result Comment: [facility][note 3] Glucose Reference Range is dependent on time and content of last meal. Glucose of more than 200 mg/dL in a nonstressed, ambulatory subject supports the diagnosis of Diabetes Mellitus. ADA recommended reference range Performed By: #### B MP, SCAN CBC ####[facility] [address] [place] [id number] [facility] Potassium [Moles/Vol] 3.9 mmol/L Normal 3.5-5.1 [facility] Comment on above: Performed By: #### B MP, SCAN CBC ####[facility] [id number] [place] [id number] [facility] Sodium [Moles/Vol] 132 mmol/L Low 136-145 [facility] Comment on above: Performed By: #### B MP, SCAN CBC ####[facility] [address] [place] [id number] [facility] Urea nitrogen [Mass/Vol] 27 mg/dL High 7-25 [facility] Comment on above: Performed By: #### B MP, SCAN CBC ####[facility] [id number] [place] [id number] [facility] Benzodiazepines Screen Ql (U )Ordered By: Alfonso Chavez on 07-20-2023 Benzodiazepines Ql (U) Positive Negative [facility] Benzoylecgonine [Presence] i n Urine by Screen methodOrdered By: Alfonso Chavez on 07-20-2023 Benzoylecgonine Screen Ql (U) Negative Negative [facility] Bilirubin Test strip Ql (U)O rdered By: Tello Nava on 07-20-2023 Bilirubin Ql (U) 2+ Negative [facility] Cannabinoids [Presence] in U rine by Screen methodOrdered By: Alfonso Chavez on 07-20-2023 Cannabinoids Screen Ql (U) See comment Negative [facility] Casts typing in urine sedime nt by light microscopyOrdered By: Tello Nava on 07-20-2023 Casts LM Nom (Urine sed) None seen [LPF] None Seen [facility] Coarse granular casts count in urine sediment by microscopy low power field (number/aOrdered By: Tello Nava on 07-20-2023 Coarse Granular Casts LM.LPF (Urine sed) [#/Area] 0-1 [LPF] 0-1 [facility] Creatinine [Mass/volume] in UrineOrdered By: Tello Brandy on 07-20-2023 Creatinine (U) [Mass/Vol] 200.0 mg/dL 14.0-26.0 [facility] Creatinine, Urine (Random)on 07-20-2023 Creatinine, Urine (Random) 200.0 mg/dL High 14.0-26.0 [facility] Comment on above: Performed By: #### A DDONUAPLUS, ANTONIO, UCREA, CUU ####[address] [address] [facility] Dipstick and Microscopicon 0 07-20-2023 Appearance (U) Turbid Critically abnormal Clear [facility] Comment on above: Order Comment: Name Collection Type:: Clean-Voided Midstream Performed By: #### A DDONUAPLUS, ANTONIO, UCREA, CUU ####[address] [address] [facility] Bacteria,Urine None Seen Normal None Seen [facility] Comment on above: Order Comment: Name Collection Type:: Clean-Voided Midstream Performed By: #### A DDONUAPLUS, ANTONIO, UCREA, CUU ####[address] [address] [facility] Bilirubin,Urine 2+ High Negative [facility] Comment on above: Order Comment: Name Collection Type:: Clean-Voided Midstream Performed By: #### A DDONUAPLUS, ANTONIO, UCREA, CUU ####[address] [address] [facility] Coarse Granular Casts,Urine 0-1 Normal 0-1 [facility] Comment on above: Order Comment: Name Collection Type:: Clean-Voided Midstream Performed By: #### A DDONUAPLUS, ANTONIO, UCREA, CUU ####[address] [address] [facility] Glucose Ql (U) 100 mg/dL High Normal [facility] Comment on above: Order Comment: Name Collection Type:: Clean-Voided Midstream Performed By: #### A DDONUAPLUS, ANTONIO, UCREA, CUU ####[address] [address] [facility] Hyaline Casts,Urine 1-2 High 0-1 [facility] Comment on above: Order Comment: Name Collection Type:: Clean-Voided Midstream Performed By: #### A DDONUAPLUS, ANTONIO, UCREA, CUU ####[address] [address] [facility] Ketones Ql (U) Trace High Negative [facility] Comment on above: Order Comment: Name Collection Type:: Clean-Voided Midstream Performed By: #### A DDONUAPLUS, ANTONIO, UCREA, CUU ####[address] [address] [facility] Leukocyte esterase Test strip Ql (U) 2+ High Negative [facility] Comment on above: Order Comment: Name Collection Type:: Clean-Voided Midstream Performed By: #### A DDONUAPLUS, ANTONIO, UCREA, CUU ####[address] [address] [facility] Nitrite,Urine Positive High Negative [facility] Comment on above: Order Comment: Name Collection Type:: Clean-Voided Midstream Performed By: #### A DDONUAPLUS, ANTONIO, UCREA, CUU ####[address] [address] [facility] Occult Blood,Urine 3+ High Negative [facility] Comment on above: Order Comment: Name Collection Type:: Clean-Voided Midstream Result Comment: PERF ORMED BY:[address] [place], [place] [phone] MEDICAL DIRECTORJOSEPH GARCIA M.D. Performed By: #### A DDONUAPLUS, ANTONIO, UCREA, CUU ####[address] [address] [facility] Other Casts,Urine None Seen Normal None Seen [facility] Comment on above: Order Comment: Name Collection Type:: Clean-Voided Midstream Result Comment: PERF ORMED BY:[address] [place], [place] [phone] MEDICAL DIRECTORJOSEPH GARCIA M.D. Performed By: #### A DDONUAPLUS, ANTONIO, UCREA, CUU ####[place] [id number] [facility] RBC,Urine Innumerable High 0-4 [facility] Comment on above: Order Comment: Name Collection Type:: Clean-Voided Midstream Performed By: #### A DDONUAPLUS, ANTONIO, UCREA, CUU ####[address] Red Blood Cell Casts,Urine 0-1 High None Seen [facility] Comment on above: Order Comment: Name Collection Type:: Clean-Voided Midstream Performed By: #### A DDONUAPLUS, ANTONIO, UCREA, CUU ####[place] [id number] [facility] Specificy [place],Urine 1.030 Normal 1.001-1.030 [facility] Comment on above: Order Comment: Name Collection Type:: Clean-Voided Midstream Performed By: #### A DDONUAPLUS, ANTONIO, UCREA, CUU ####[place] [id number] [facility] Squamous Epithelial Cell,Urine 3-4 High 0-2 [facility] Comment on above: Order Comment: Name Collection Type:: Clean-Voided Midstream Performed By: #### A DDONUAPLUS, ANTONIO, UCREA, CUU ####[place] [id number] [facility] Urobilinogen,Urine Normal Normal Normal [facility] Comment on above: Order Comment: Name Collection Type:: Clean-Voided Midstream Performed By: #### A DDONUAPLUS, ANTONIO, UCREA, CUU ####[address] [place] [address] [facility] WBC,Urine 20-49 High 0-4 [facility] Comment on above: Order Comment: Name Collection Type:: Clean-Voided Midstream Performed By: #### A DDONUAPLUS, ANTONIO, UCREA, CUU ####[place] [id number] [facility] Drug Screen,Urineon 07-20-19 Amphetamine Screen,Urine Negative Normal Negative [facility] Comment on above: Order Comment: UDS t o be sent to [facility] Performed By: #### U RDS ####[address] Barbiturate Screen,Urine Negative Normal Negative [facility] Comment on above: Order Comment: UDS t o be sent to [facility] Performed By: #### U RDS ####[address] Benzodiazepines Screen,Urine Positive High Negative [facility] Comment on above: Order Comment: UDS t o be sent to [facility] Performed By: #### U RDS ####[address] Cannabinoid Screen,Urine Normal Negative [facility] Comment on above: Order Comment: UDS t o be sent to [facility] Result Comment: Test ing done at [facility] These are unconfirmed results and should not be used for legal purposes. Drug Cut-Off Concentration: AMPH 1000 ng/mL KO 200 ng/mL TEDDY 200 ng/mL COCM 300 ng/mL OP 300 ng/mL PCP 25 ng/mL THC 20 ng/mLPERFORMED BY:[address] [place], [place] [phone] MEDICAL SILVIA GARCIA M.D. Performed By: #### U RDS ####[place] [id number] [facility] Cocaine Screen,Urine Negative Normal Negative [facility] Comment on above: Order Comment: UDS t o be sent to [facility] Performed By: #### U RDS ####[address] [place] [address] [facility] Opiate Screen,Urine Normal Negative [facility] Comment on above: Order Comment: UDS t o be sent to [facility] Result Comment: Test ing done at [facility] Performed By: #### U RDS ####[facility] [address] [place] [address] [facility] Phencyclidine Screen,Urine Negative Normal Negative [facility] Comment on above: Order Comment: UDS t o be sent to [facility] Performed By: #### U RDS ####[facility] [address] [place] [address] [facility] Glucose Poct Glucometerson 0 07-20-2023 Glucose [Mass/Vol] 157 mg/dL Normal [facility] Comment on above: Result Comment: [place] om Glucose Reference Range is dependent on time and content of last meal. Glucose of more than 200 mg/dL in a nonstressed, ambulatory subject supports the diagnosis of Diabetes Mellitus.PERFORMED BY:[place] [address] [address] [place], [place] [phone] MEDICAL DIRECTORJOSEPH GARCIA M.D. Performed By: #### G LULS ####Point of Care testing, Commemt1 Glu2: Cleaned Meter Normal [facility] Comment on above: Result Comment: PERF ORMED BY:[address] [address] [address] [place], [place] [phone] MEDICAL DIRECTORJOSEPH GARCIA M.D. Performed By: #### G LULS ####Point of Care testing, Glucose [Mass/Vol] 134 mg/dL Normal [facility] Comment on above: Result Comment: [place] om Glucose Reference Range is dependent on time and content of last meal. Glucose of more than 200 mg/dL in a nonstressed, ambulatory subject supports the diagnosis of Diabetes Mellitus. Performed By: #### G LULS ####Point of Care testing, Commemt1 Glu2: Cleaned Meter Normal [facility] Comment on above: Result Comment: PERF ORMED BY:[address] [place], [place] [phone] MEDICAL DIRECTORJOSEPH GARCIA M.D. Performed By: #### G LULS ####Point of Care testing, Glucose [Mass/Vol] 138 mg/dL Normal [facility] Comment on above: Result Comment: [place] om Glucose Reference Range is dependent on time and content of last meal. Glucose of more than 200 mg/dL in a nonstressed, ambulatory subject supports the diagnosis of Diabetes Mellitus. Performed By: #### G LULS ####Point of Care testing, Glucose [Mass/Vol] 152 mg/dL Normal [facility] Comment on above: Result Comment: [place] om Glucose Reference Range is dependent on time and content of last meal. Glucose of more than 200 mg/dL in a nonstressed, ambulatory subject supports the diagnosis of Diabetes Mellitus.PERFORMED BY:[address] [address] [address] [place], [place] [phone] MEDICAL DIRECTORJOSEPH GARCIA M.D. Performed By: #### G LULS ####Point of Care testing, Ketones Auto test strip (U) [Mass/Vol]Ordered By: Tello Nava on 07-20-2023 Ketones (U) [Mass/Vol] Trace Negative [facility] MISC LABon 07-20-2023 MISC LAB Normal [facility] Comment on above: Order Comment: [facility]: MONITOR SCREEN 10 DRUG CLASS PROFILE [id number] URINE Result Comment: See report. Scanned copy available in EMR.PERFORMED BY:[address] [address] [address] [place]DA[place], [place] [phone] MEDICAL DIRECTORJOSEPH GARCIA M.D. Performed By: #### M [facility] ####[address] [place] [address] [facility] Nitrite Test strip Ql (U)Ord ered By: Tello Nava on 07-20-2023 Nitrite Ql (U) Positive Negative [facility] No Panel InformationOrdered By: Tello Nava on 07-20-2023 See comment [facility] Opiates [Presence] in Urine by Screen methodOrdered By: Alfonso Chavez on 07-20-2023 Opiates Screen Ql (U) See comment Negative [facility] Phencyclidine Screen Ql (U)O rdered By: Alfonso Chavez on 07-20-2023 Phencyclidine Ql (U) Negative Negative [facility] Scan and CBCon 07-20-2023 Anisocytosis Ql (Bld) Slight Normal [facility] Comment on above: Performed By: #### B MP, SCAN CBC ####[address] Basophils (Bld) [#/Vol] 0.2 10*3/uL Normal 0.0-0.2 [facility] Comment on above: Performed By: #### B MP, SCAN CBC ####[address] Basophils/100 WBC (Bld) 0.9 % Normal . [facility] Comment on above: Performed By: #### B MP, SCAN CBC ####[address] Eosinophils (Bld) [#/Vol] 0.4 10*3/uL Normal 0.0-0.45 [facility] Comment on above: Performed By: #### B MP, SCAN CBC ####[address] Eosinophils/100 WBC (Bld) 2.0 % Normal . [facility] Comment on above: Performed By: #### B MP, SCAN CBC ####[address] Erythrocyte distribution width (RBC) [Ratio] 17.1 % High 12.0-14.8 [facility] Comment on above: Performed By: #### B MP, SCAN CBC ####[address] Hematocrit (Bld) [Volume fraction] 23.7 % Low 38.8-50.0 [facility] Comment on above: Performed By: #### B MP, SCAN CBC ####[address] Hemoglobin (Bld) [Mass/Vol] 8.2 g/dL Low 13.0-17.0 [facility] Comment on above: Performed By: #### B MP, SCAN CBC ####[address] Lymphocytes (Bld) [#/Vol] 2.5 10*3/uL Normal 1.00-4.8 [facility] Comment on above: Performed By: #### B MP, SCAN CBC ####[address] Lymphocytes/100 WBC (Bld) 12.3 % Normal . [facility] Comment on above: Performed By: #### B MP, SCAN CBC ####[address] MCH (RBC) [Entitic mass] 29.4 pg Normal 27.5-35.2 [facility] Comment on above: Performed By: #### B MP, SCAN CBC ####[address] MCV (RBC) [Entitic vol] 85.3 fL Normal 83.5-101 [facility] Comment on above: Performed By: #### B MP, SCAN CBC ####[address] Mean Corpuscular HGB Conc 34.5 g/dL Normal 32.5-35.6 [facility] Comment on above: Performed By: #### B MP, SCAN CBC ####[address] Microcytosis Slight Normal [facility] Comment on above: Performed By: #### B MP, SCAN CBC ####[address] Monocytes (Bld) [#/Vol] 1.8 10*3/uL High 0.0-0.8 [facility] Comment on above: Performed By: #### B MP, SCAN CBC ####[address] Monocytes/100 WBC (Bld) 8.8 % Normal . [facility] Comment on above: Performed By: #### B MP, SCAN CBC ####[address] [address] [facility] Neutrophils (Bld) [#/Vol] 15.2 10*3/uL High 1.8-7.7 [facility] Comment on above: Performed By: #### B MP, SCAN CBC ####[place] [id number] [facility] Neutrophils/100 WBC (Bld) 76.0 % Normal . [facility] Comment on above: Performed By: #### B MP, SCAN CBC ####[address] [address] [place] [id number] [facility] NRBC% 0.0 /100{WBC} Normal 0-0.5 [facility] Comment on above: Performed By: #### B MP, SCAN CBC ####[place] [id number] [facility] Platelet Estimate Increased Normal Normal [facility] Comment on above: Performed By: #### B MP, SCAN CBC ####[place] [id number] [facility] Platelet mean volume (Bld) [Entitic vol] 7.1 fL Normal 6.6-10.1 [facility] Comment on above: Performed By: #### B MP, SCAN CBC ####[place] [id number] [facility] Platelet Morphology Normal Normal Normal [facility] Comment on above: Result Comment: PERF ORMED BY:[address] [place], [place] [phone] MEDICAL SILVIA GARCIA M.D. Performed By: #### B MP, SCAN CBC ####[address] [address] [facility] Platelets (Bld) [#/Vol] 467 10*3/uL High 150-450 [facility] Comment on above: Performed By: #### B MP, SCAN CBC ####[address] [address] [facility] Polychromasia Slight Normal [facility] Comment on above: Performed By: #### B MP, SCAN CBC ####[place] [id number] [facility] RBC (Bld) [#/Vol] 2.78 10*6/uL Low 3.90-5.60 [facility] Comment on above: Performed By: #### B MP, SCAN CBC ####[place] [id number] [facility] WBC (Bld) [#/Vol] 20.0 10*3/uL High 4.1-10.5 [facility] Comment on above: Performed By: #### B MP, SCAN CBC ####[address] Sodium [Moles/volume] in Uri neOrdered By: Tello Nava on 07-20-2023 Sodium (U) [Moles/Vol] 19 mmol/L Normal [facility] Comment on above: Result Comment: No r eference range establishedPERFORMED BY:[address] [place], [place] [phone] MEDICAL DIRECTORJOSEPH GARCIA M.D. Performed By: #### A DDONUAJAS, ANTONIO, UCREA, CUU ####[address] Specific gravity Auto test s trip (U) [Rel density]Ordered By: Tello Nava on 07-20-2023 Specific gravity (U) [Rel density] 1.030 1.001-1.030 [facility] Squamous epithelial cells de tection in urine sediment by light microscopyOrdered By: Tello Nava on 07-20-2023 Epithelial cells.squamous LM Ql (Urine sed) 3-4 [HPF] 0-2 [facility] Urine Cultureon 07-20-2023 Bacteria identified Cx Nom (U) Normal [facility] Comment on above: Performed By: #### A DDONUAPLUS, ANTONIO, UCREA, CUU ####[place] [id number] Urine bacteria detection by automated methodOrdered By: Tello Nava on 07-20-2023 Bacteria Auto Ql (U) None seen None Seen [facility] Urine clarity by refractomet ry automatedOrdered By: Tello Nava on 07-20-2023 Clarity Refractometry automated (U) Turbid Clear [facility] Urine glucose measurement by automated test strip (mass/volume)Ordered By: Tello Nava on 07-20-2023 Glucose Auto test strip (U) [Mass/Vol] 100 mg/dL Normal [facility] Urine hemoglobin detection b y automated test stripOrdered By: Tello Nava on 07-20-2023 Hemoglobin Auto test strip Ql (U) 3+ Negative [facility] Urine leukocyte esterase det ection by automated test stripOrdered By: Tello Nava on 07-20-2023 Leukocyte esterase Auto test strip Ql (U) 2+ Negative [facility] Urine pH measurement by auto mated test stripOrdered By: Tello Nava on 07-20-2023 pH (U) 5.0 [pH] Normal 5.0-9.0 [facility] Comment on above: Order Comment: Name Collection Type:: Clean-Voided Midstream Performed By: #### A TERRYONUAPLUS, ANTONIO, UCREA, CUU ####[place] [id number] Urine protein measurement by automated test strip (mass/volume)Ordered By: Tello Nava on 07-20-2023 Protein (U) [Mass/Vol] 300 mg/dL High Negative [facility] Comment on above: Order Comment: Name Collection Type:: Clean-Voided Midstream Performed By: #### A DDONUAPLUS, ANTONIO, UCREA, CUU ####[place] [id number] Urine sediment erythrocyte c ast count by microscopy (number/low power field)Ordered By: Tello Nava on 07-20-2023 RBC casts LM.LPF (Urine sed) [#/Area] 0-1 [LPF] None Seen [facility] Urobilinogen Auto test strip (U) [Mass/Vol]Ordered By: Tello Nava on 07-20-2023 Urobilinogen (U) [Mass/Vol] Normal mg/dL Normal [facility] Basic Metabolic Panelon 06-27 Anion gap [Moles/Vol] 11.8 mmol/L Normal 6.0-15.0 [facility] Comment on above: Performed By: #### D IFF CBC, BMP ####[facility] [place] [address] [facility] Calcium [Mass/Vol] 7.2 mg/dL Low 8.6-10.3 [facility] Comment on above: Performed By: #### D IFF CBC, BMP ####[address] [place] [address] [place] Chloride [Moles/Vol] 97 mmol/L Low 98-107 [facility] Comment on above: Performed By: #### D IFF CBC, BMP ####[address] [place] [address] [place] CO2 [Moles/Vol] 28.9 mmol/L Normal 21.0-31.0 [facility] Comment on above: Performed By: #### D IFF CBC, BMP ####[address] [place] [address] [place] Creatinine [Mass/Vol] 3.98 mg/dL Significan t change up 0.70-1.30 [facility] Comment on above: Performed By: #### D IFF CBC, BMP ####[address] [place] [address] [place] Creatinine Clr Calc Pharmacy 19.32 Normal [facility] Comment on above: Result Comment: PERF ORMED BY:[address] [place], [place] [phone] MEDICAL DIRECTORJOSEPH GARCIA M.D. Performed By: #### D IFF CBC, BMP ####[address] [place] [address] [facility] GFR/1.73 sq M.predicted MDRD (S/P/Bld) [Vol rate/Area] 15.337 mL/min/{1.73_m2} Normal [facility] Comment on above: Performed By: #### D IFF CBC, BMP ####[address] [place] [address] [facility] Glucose [Mass/Vol] 137 mg/dL High 70-100 [facility] Comment on above: Result Comment: [place] Glucose Reference Range is dependent on time and content of last meal. Glucose of more than 200 mg/dL in a nonstressed, ambulatory subject supports the diagnosis of Diabetes Mellitus. ADA recommended reference range Performed By: #### D IFF CBC, BMP ####[address] [place] [id number] [facility] Potassium [Moles/Vol] 4.7 mmol/L Normal 3.5-5.1 [facility] Comment on above: Performed By: #### D IFF CBC, BMP ####[place] [id number] [facility] Sodium [Moles/Vol] 133 mmol/L Low 136-145 [facility] Comment on above: Performed By: #### D IFF CBC, BMP ####[place] [id number] [facility] Urea nitrogen [Mass/Vol] 42 mg/dL High 7-25 [facility] Comment on above: Performed By: #### D IFF CBC, BMP ####[place] [id number] [facility] Basophils/100 leukocytes in Blood by Manual countOrdered By: Tello Nava on 07-19-2023 Basophils/100 WBC (Bld) 1 % Normal 0-2 [facility] Comment on above: Performed By: #### D IFF CBC, BMP ####[address] [address] [place] Diff and CBCon 07-19-2023 Anisocytosis Ql (Bld) Slight Normal [facility] Comment on above: Performed By: #### D IFF CBC, BMP ####[address] Erythrocyte distribution width (RBC) [Ratio] 16.9 % High 12.0-14.8 [facility] Comment on above: Performed By: #### D IFF CBC, BMP ####[address] Hematocrit (Bld) [Volume fraction] 24.2 % Low 38.8-50.0 [facility] Comment on above: Performed By: #### D IFF CBC, BMP ####[address] Hemoglobin (Bld) [Mass/Vol] 8.4 g/dL Low 13.0-17.0 [facility] Comment on above: Performed By: #### D IFF CBC, BMP ####[address] MCH (RBC) [Entitic mass] 29.3 pg Normal 27.5-35.2 [facility] Comment on above: Performed By: #### D IFF CBC, BMP ####[address] MCV (RBC) [Entitic vol] 84.6 fL Normal 83.5-101 [facility] Comment on above: Performed By: #### D IFF CBC, BMP ####[address] Mean Corpuscular HGB Conc 34.7 g/dL Normal 32.5-35.6 [facility] Comment on above: Performed By: #### D IFF CBC, BMP ####[address] Metamyelocytes 1 % High 0-0 [facility] Comment on above: Performed By: #### D IFF CBC, BMP ####[address] Microcytosis Slight Normal [facility] Comment on above: Performed By: #### D IFF CBC, BMP ####[address] [place] [address] [facility] Myelocytes 2 % High 0-0 [facility] Comment on above: Performed By: #### D IFF CBC, BMP ####[address] [place] [address] [facility] Platelet Estimate Increased Normal Normal [facility] Comment on above: Performed By: #### D IFF CBC, BMP ####[address] [place] [address] [facility] Platelet mean volume (Bld) [Entitic vol] 7.3 fL Normal 6.6-10.1 [facility] Comment on above: Result Comment: PERF ORMED BY:[address] [address] [address] LOYATracyLUZ [place], [place] [phone] MEDICAL DIRECTORJOSEPH GARCIA M.D. Performed By: #### D IFF CBC, BMP ####[address] [address] [facility] Platelet Morphology Normal Normal Normal [facility] Comment on above: Result Comment: PERF ORMED BY:[address] [place] [place], [place] [phone] MEDICAL DIRECTORJOSEPH GARCIA M.D. Performed By: #### D IFF CBC, BMP ####[address] [address] [facility] Platelets (Bld) [#/Vol] 467 10*3/uL High 150-450 [facility] Comment on above: Performed By: #### D IFF CBC, BMP ####[address] [address] [facility] Polychromasia Slight Normal [facility] Comment on above: Performed By: #### D IFF CBC, BMP ####[address] [place] [address] [facility] RBC (Bld) [#/Vol] 2.86 10*6/uL Low 3.90-5.60 [facility] Comment on above: Performed By: #### D IFF CBC, BMP ####[facility] [address] [place] [address] [facility] WBC (Bld) [#/Vol] 21.0 10*3/uL High 4.1-10.5 [facility] Comment on above: Performed By: #### D IFF CBC, BMP ####[address] [place] [address] [facility] Eosinophils/100 leukocytes i n Blood by Manual countOrdered By: Tello Nava on 07-19-2023 Eosinophils/100 WBC (Bld) 1 % Normal 1-3 [facility] Comment on above: Performed By: #### D IFF CBC, BMP ####[facility] [place] [address] [facility] Glucose Poct Glucometerson 0 07-19-2023 Glucose [Mass/Vol] 192 mg/dL Normal The [facility] Comment on above: Result Comment: [facility][note 3] Glucose Reference Range is dependent on time and content of last meal. Glucose of more than 200 mg/dL in a nonstressed, ambulatory subject supports the diagnosis of Diabetes Mellitus.PERFORMED BY:[address] [place], [place] [phone] MEDICAL SILVIA GARCIA M.D. Performed By: #### G LULS ####Point of Care testing, Glucose [Mass/Vol] 217 mg/dL Normal [facility] Comment on above: Result Comment: [facility][note 3] Glucose Reference Range is dependent on time and content of last meal. Glucose of more than 200 mg/dL in a nonstressed, ambulatory subject supports the diagnosis of Diabetes Mellitus.PERFORMED BY:[address] [place], [place] [phone] MEDICAL SILVIA GARCIA M.D. Performed By: #### G LULS ####Point of Care testing, Glucose [Mass/Vol] 172 mg/dL Normal [facility] Comment on above: Result Comment: [facility][note 3] Glucose Reference Range is dependent on time and content of last meal. Glucose of more than 200 mg/dL in a nonstressed, ambulatory subject supports the diagnosis of Diabetes Mellitus.PERFORMED BY:[address] [place], [place] [phone] MEDICAL DIRECTORJOSEPH GARCIA M.D. Performed By: #### G LULS ####Point of Care testing, Lymphocytes/100 leukocytes i n Blood by Manual countOrdered By: Tello Nava on 07-19-2023 Lymphocytes/100 WBC (Bld) 2 % Low 18-42 [facility] Comment on above: Performed By: #### D IFF CBC, BMP ####[facility] [address] [id number] [facility] Manual blood segmented neutr ophils/100 leukocytesOrdered By: Tello Nava on 07-19-2023 Segmented neutrophils/100 WBC (Bld) 85 % High 50-70 [facility] Comment on above: Performed By: #### D IFF CBC, BMP ####[id number] [facility] Metamyelocytes/100 WBC Manua l cnt (Bld)Ordered By: Tello Nava on 07-19-2023 Metamyelocytes/100 WBC (Bld) 1 % 0-0 [facility] Monocytes/100 leukocytes in Blood by Manual countOrdered By: Tello Nava on 07-19-2023 Monocytes/100 WBC (Bld) 7 % Normal 2-11 [facility] Comment on above: Performed By: #### D IFF CBC, BMP ####[id number] [facility] Myelocytes/100 WBC Manual cn t (Bld)Ordered By: Tello Nava on 07-19-2023 Myelocytes/100 WBC (Bld) 2 % 0-0 [facility] Peripheral white blood cell differential % bands, microscopic examOrdered By: Tello Nava on 07-19-2023 Band form neutrophils/100 WBC (Bld) 2 % Normal 0-5 [facility] Comment on above: Performed By: #### D IFF CBC, BMP ####[id number] [facility] Urine culture routineOrdered By: Tello Nava on 07-19-2023 Bacteria identified Cx Nom (U) 2 Days [facility] Basic Metabolic Panelon 06-27 Anion gap [Moles/Vol] Not performed Normal 6.0-15.0 [facility] Comment on above: Performed By: #### D IFF CBC, BMP ####[facility] [address] [id number] [facility] Creatinine Clr Calc Pharmacy 15.95 Normal [facility] Comment on above: Result Comment: PERF ORMED BY:[address] [place], [place] [phone] MEDICAL DIRECTORJOSEPH GARCIA M.D. Performed By: #### D IFF CBC, BMP ####[address] [place] [id number] [facility] GFR/1.73 sq M.predicted MDRD (S/P/Bld) [Vol rate/Area] 12.189 mL/min/{1.73_m2} Normal [facility] Comment on above: Performed By: #### D IFF CBC, BMP ####[facility] Potassium Normal 3.5-5.1 [facility] Comment on above: Result Comment: Spec imen hemolyzed, redraw requested Performed By: #### D IFF CBC, BMP ####[address] [place] [id number] [facility] Basophils Auto (Bld) [#/Vol] Ordered By: Tello Nava on 07-18-2023 Basophils (Bld) [#/Vol] N/A [facility] Basophils/100 WBC Auto (Bld) Ordered By: Tello Nava on 07-18-2023 Basophils/100 WBC (Bld) N/A [facility] Basophils/100 leukocytes in Blood by Manual countOrdered By: Tello Nava on 07-18-2023 Basophils/100 WBC (Bld) 1 % Normal 0-2 [facility] Comment on above: Performed By: #### D IFF CBC, BMP ####[facility] [address] [place] [address] [facility] Demetrio cells [Presence] in Blo od by Light microscopyOrdered By: Tello Nava on 07-18-2023 [place] cells LM Ql (Bld) [facility] Calcium [Mass/volume] in Ser um or PlasmaOrdered By: Tello Nava on 07-18-2023 Calcium [Mass/Vol] 7.1 mg/dL Low 8.6-10.3 [facility] Comment on above: Performed By: #### D IFF CBC, BMP ####[address] [place] [address] [facility] Capillary blood glucose nic urement by glucometer (mass/volume)Ordered By: Tello Nava on 07-18-2023 Glucose [Mass/Vol] 280 mg/dL Normal [facility] Comment on above: Random Glucose Refer ence Range is dependent on time and content of last meal. Glucose of more than 200 mg/dL in a nonstressed, ambulatory subject supports the diagnosis of Diabetes Mellitus. Result Comment: [place] Glucose Reference Range is dependent on time and content of last meal. Glucose of more than 200 mg/dL in a nonstressed, ambulatory subject supports the diagnosis of Diabetes Mellitus.PERFORMED BY:[address] [place], [place] [phone] MEDICAL DIRECTORJOSEPH GARCIA M.D. Performed By: #### G LUANURAG ####Point of Care testing, Carbon dioxide, total [Moles /volume] in Serum or PlasmaOrdered By: Tello Nava on 07-18-2023 CO2 [Moles/Vol] 23.7 mmol/L Normal 21.0-31.0 [facility] Comment on above: Performed By: #### D IFF CBC, BMP ####[facility] [place] [address] [facility] Chloride [Moles/volume] in S rene or PlasmaOrdered By: Tello Nava on 07-18-2023 Chloride [Moles/Vol] 95 mmol/L Low 98-107 [facility] Comment on above: Performed By: #### D IFF CBC, BMP ####[address] [place] [address] [facility] Creatinine [Mass/volume] in Serum or PlasmaOrdered By: Tello Nava on 07-18-2023 Creatinine [Mass/Vol] 4.82 mg/dL Significan t change up 0.70-1.30 [facility] Comment on above: Delta: 6.18 on 07/17 Performed By: #### D IFF CBC, BMP ####[address] [place] [address] [facility] Diff and CBCon 07-18-2023 Crenated RBC Slight Normal [facility] Comment on above: Performed By: #### D IFF CBC, BMP ####[address] [place] [address] [facility] Mean Corpuscular HGB Conc 34.4 g/dL Normal 32.5-35.6 [facility] Comment on above: Performed By: #### D IFF CBC, BMP ####[address] [address] [facility] Metamyelocytes 3 % High 0-0 [facility] Comment on above: Performed By: #### D IFF CBC, BMP ####[address] [place] [address] [facility] Myelocytes 2 % High 0-0 [facility] Comment on above: Performed By: #### D IFF CBC, BMP ####[address] [address] [facility] Platelet Estimate Increased Normal Normal [facility] Comment on above: Performed By: #### D IFF CBC, BMP ####[address] [place] [address] [facility] Platelet Morphology Normal Normal Normal [facility] Comment on above: Result Comment: PERF ORMED BY:[address] [place], [place] [phone] MEDICAL DIRECTORJOSEPH GARCIA M.D. Performed By: #### D IFF CBC, BMP ####[address] [place] [address] [facility] Poikilocytosis Slight Normal [facility] Comment on above: Performed By: #### D IFF CBC, BMP ####[address] [place] [address] [facility] Polychromasia Slight Normal The [facility] Comment on above: Performed By: #### D IFF CBC, BMP ####[address] [place] [id number] [facility] Schistocytes Slight Normal The [facility] Comment on above: Performed By: #### D IFF CBC, BMP ####[address] Eosinophils Auto (Bld) [#/Vo l]Ordered By: Tello Nava on 07-18-2023 Eosinophils (Bld) [#/Vol] N/A [facility] Eosinophils/100 WBC Auto (Bl d)Ordered By: Tello Nava on 07-18-2023 Eosinophils/100 WBC (Bld) N/A [facility] Eosinophils/100 leukocytes i n Blood by Manual countOrdered By: Tello Nava on 07-18-2023 Eosinophils/100 WBC (Bld) 3 % Normal 1-3 [facility] Comment on above: Performed By: #### D IFF CBC, BMP ####[address] Erythrocyte distribution wid th [Ratio] by Automated countOrdered By: Tello Nava on 07-18-2023 Erythrocyte distribution width (RBC) [Ratio] 14.4 % Normal 12.0-14.8 [facility] Comment on above: Performed By: #### D IFF CBC, BMP ####[address] Erythrocytes [#/volume] in B lood by Automated countOrdered By: Tello Nava on 07-18-2023 RBC (Bld) [#/Vol] 2.37 10*6/uL Low 3.90-5.60 [facility] Comment on above: Performed By: #### D IFF CBC, BMP ####[facility] [place] [address] [facility] Glucose Poct Glucometerson 0 07-18-2023 Glucose [Mass/Vol] 137 mg/dL Normal [facility] Comment on above: Result Comment: [place] om Glucose Reference Range is dependent on time and content of last meal. Glucose of more than 200 mg/dL in a nonstressed, ambulatory subject supports the diagnosis of Diabetes Mellitus.PERFORMED BY:[address] [place], [place] [phone] MEDICAL DIRECTORJOSEPH GARCIA M.D. Performed By: #### G LULS ####Point of Care testing, Glucose [Mass/Vol] 146 mg/dL Normal [facility] Comment on above: Result Comment: [place] om Glucose Reference Range is dependent on time and content of last meal. Glucose of more than 200 mg/dL in a nonstressed, ambulatory subject supports the diagnosis of Diabetes Mellitus.PERFORMED BY:[address] [place], [place] [phone] MEDICAL DIRECTORJOSEPH GARCIA M.D. Performed By: #### G LULS ####Point of Care testing, Glucose [Mass/Vol] 151 mg/dL Normal [facility] Comment on above: Result Comment: [place] om Glucose Reference Range is dependent on time and content of last meal. Glucose of more than 200 mg/dL in a nonstressed, ambulatory subject supports the diagnosis of Diabetes Mellitus.PERFORMED BY:[address] [place], [place] [phone] MEDICAL DIRECTORJOSEPH GARCIA M.D. Performed By: #### G LULS ####Point of Care testing, Glucose [Mass/Vol] 169 mg/dL Normal [facility] Comment on above: Result Comment: [place] om Glucose Reference Range is dependent on time and content of last meal. Glucose of more than 200 mg/dL in a nonstressed, ambulatory subject supports the diagnosis of Diabetes Mellitus.PERFORMED BY:[address] [address] [address] [place]ADELMY[place], [place] [phone] MEDICAL DIRECTORJOSEPH GARCIA M.D. Performed By: #### G VALERY ####Point of Care testing, Glucose [Mass/volume] in Ser um or PlasmaOrdered By: Tello Nava on 07-18-2023 Glucose [Mass/Vol] 148 mg/dL High 70-100 [facility] Comment on above: ADA recommended refe rence rangeRandom Glucose Reference Range is dependent on time and content of last meal. Glucose of more than 200 mg/dL in a nonstressed, ambulatory subject supports the diagnosis of Diabetes Mellitus. Result Comment: [place] om Glucose Reference Range is dependent on time and content of last meal. Glucose of more than 200 mg/dL in a nonstressed, ambulatory subject supports the diagnosis of Diabetes Mellitus. ADA recommended reference range Performed By: #### D IFF CBC, BMP ####[address] [place] Hematocrit [Volume Fraction] of Blood by Automated countOrdered By: Tello Nava on 07-18-2023 Hematocrit (Bld) [Volume fraction] 20.4 % Low 38.8-50.0 [facility] Comment on above: Performed By: #### D IFF CBC, BMP ####[address] Hemoglobin [Mass/volume] in BloodOrdered By: Tello Nava on 07-18-2023 Hemoglobin (Bld) [Mass/Vol] 7.0 g/dL Low 13.0-17.0 [facility] Comment on above: Performed By: #### D IFF CBC, BMP ####[address] [place] [id number] [facility] Neil 07-18-2023 L Normal [facility] Leukocytes [#/volume] correc jewel for nucleated erythrocytes in Blood by Automated counOrdered By: Tello Nava on 07-18-2023 WBC corrected for nucl RBC Auto (Bld) [#/Vol] 19.7 10*3/uL 4.1-10.5 [facility] Leukocytes [#/volume] in Blo od by Automated countOrdered By: Tello Nava on 07-18-2023 WBC (Bld) [#/Vol] 19.7 10*3/uL High 4.1-10.5 [facility] Comment on above: Performed By: #### D IFF CBC, BMP ####[address] Lymphocytes Auto (Bld) [#/Vo l]Ordered By: Tello Nava on 07-18-2023 Lymphocytes (Bld) [#/Vol] N/A [facility] Lymphocytes/100 WBC Auto (Bl d)Ordered By: Tello Nava on 07-18-2023 Lymphocytes/100 WBC (Bld) N/A [facility] Lymphocytes/100 leukocytes i n Blood by Manual countOrdered By: Tello Nava on 07-18-2023 Lymphocytes/100 WBC (Bld) 8 % Low 18-42 [facility] Comment on above: Performed By: #### D IFF CBC, BMP ####[address] MCH [Entitic mass] by Automa jewel countOrdered By: Tello Nava on 07-18-2023 MCH (RBC) [Entitic mass] 29.5 pg Normal 27.5-35.2 [facility] Comment on above: Performed By: #### D IFF CBC, BMP ####[address] MCHC Auto (RBC) [Mass/Vol]Or dered By: Tello Nava on 07-18-2023 MCHC (RBC) [Mass/Vol] 34.4 g/dL 32.5-35.6 [facility] MCV [Entitic volume] by Auto mated countOrdered By: Tello Nava on 07-18-2023 MCV (RBC) [Entitic vol] 85.8 fL Normal 83.5-101 [facility] Comment on above: Performed By: #### D IFF CBC, BMP ####[address] [address] [facility] Manual blood segmented neutr ophils/100 leukocytesOrdered By: Tello Nava on 07-18-2023 Segmented neutrophils/100 WBC (Bld) 77 % High 50-70 [facility] Comment on above: Performed By: #### D IFF CBC, BMP ####[facility] [address] Metamyelocytes/100 WBC Manua l cnt (Bld)Ordered By: Tello Nava on 07-18-2023 Metamyelocytes/100 WBC (Bld) 3 % 0-0 [facility] Monocytes Auto (Bld) [#/Vol] Ordered By: Tello Nava on 07-18-2023 Monocytes (Bld) [#/Vol] N/A [facility] Monocytes/100 WBC Auto (Bld) Ordered By: Tello Nava on 07-18-2023 Monocytes/100 WBC (Bld) N/A [facility] Monocytes/100 leukocytes in Blood by Manual countOrdered By: Tello Nava on 07-18-2023 Monocytes/100 WBC (Bld) 3 % Normal 2-11 [facility] Comment on above: Performed By: #### D IFF CBC, BMP ####[facility] [id number] [place] [address] Myelocytes/100 WBC Manual cn t (Bld)Ordered By: Tello Nava on 07-18-2023 Myelocytes/100 WBC (Bld) 2 % 0-0 [facility] Neutrophils Auto (Bld) [#/Vo l]Ordered By: Tello Nava on 07-18-2023 Neutrophils (Bld) [#/Vol] N/A [facility] Neutrophils/100 WBC Auto (Bl d)Ordered By: Tello Nava on 07-18-2023 Neutrophils/100 WBC (Bld) N/A [facility] No Panel InformationOrdered By: Tello Nava on 07-18-2023 Estimated GFR (CKD-EPI) 12.189 mL/Min [facility] Creatinine Clearance (Chem 15.95 [facility] Nucleated erythrocytes [Pres ence] in Blood by Automated countOrdered By: Tello Nava on 07-18-2023 Nucleated RBC Auto Ql (Bld) N/A [facility] Peripheral white blood cell differential % bands, microscopic examOrdered By: Tello Nava on 07-18-2023 Band form neutrophils/100 WBC (Bld) 4 % Normal 0-5 [facility] Comment on above: Performed By: #### D IFF CBC, BMP ####[address] [address] Platelet adequacy [Presence] in Blood by Light microscopyOrdered By: Tello Nava on 07-18-2023 Platelets LM Ql (Bld) Increased Normal [facility] Platelet mean volume [Entiti c volume] in Blood by Automated countOrdered By: Tello Nava on 07-18-2023 Platelet mean volume (Bld) [Entitic vol] 7.4 fL Normal 6.6-10.1 [facility] Comment on above: Performed By: #### D IFF CBC, BMP ####[address] Platelet morphology finding [Identifier] in BloodOrdered By: Tello Nava on 07-18-2023 Platelet morphology finding Nom (Bld) Normal Normal [facility] Platelets [#/volume] in Bloo d by Automated countOrdered By: Tello Nava on 07-18-2023 Platelets (Bld) [#/Vol] 457 10*3/uL High 150-450 [facility] Comment on above: Performed By: #### D IFF CBC, BMP ####[address] Poikilocytosis [Presence] in Blood by Light microscopyOrdered By: Tello Nava on 07-18-2023 Poikilocytosis LM Ql (Bld) [facility] Polychromasia [Presence] in Blood by Light microscopyOrdered By: Tello Nava on 07-18-2023 Polychromasia LM Ql (Bld) [facility] Potassium [Moles/volume] in Serum or PlasmaOrdered By: Tello Nava on 07-18-2023 Potassium [Moles/Vol] 4.6 mmol/L Normal 3.5-5.1 [facility] Comment on above: Result Comment: PERF ORMED BY:[address] [place], [place] [phone] MEDICAL DIRECTORJOSEPH GARCIA M.D. Performed By: #### R HOLA Tinajero ####[place] [id number] [facility] RBC morphologyOrdered By: Dc Nava on 07-18-2023 RBC morphology finding Nom (Bld) Normal Normal Normal [facility] Comment on above: Performed By: #### D IFF CBC, BMP ####[place] [id number] [facility] Schistocytes [Presence] in B lood by Light microscopyOrdered By: Tello Nava on 07-18-2023 Schistocytes LM Ql (Bld) Slight [facility] Serum or plasma anion gap de terminationOrdered By: Tello Nava on 07-18-2023 Anion gap [Moles/Vol] TNP [facility] Comment on above: Test not performed Sodium [Moles/volume] in Ser um or PlasmaOrdered By: Tello Nava on 07-18-2023 Sodium [Moles/Vol] 128 mmol/L Low 136-145 [facility] Comment on above: Performed By: #### D IFF CBC, BMP ####[place] [id number] [facility] Urea nitrogen [Mass/volume] in Serum or PlasmaOrdered By: Tello Nava on 07-18-2023 Urea nitrogen [Mass/Vol] 66 mg/dL Significant change up 12-17 [facility] Comment on above: Delta: 99 on [phone] Performed By: #### D IFF CBC, BMP ####[address] [place] [id number] [facility] XR foot LT 2Von 07-18-2023 XR foot LT 2V Normal [facility] ABO/Rh Retypeon 07-17-2023 ABO/RH Recheck Result Positive Normal [facility] Comment on above: Order Comment: pt in dialysis Result Comment: PERF ORMED BY:[address] [address] [place]ON[place]ILY NUÑ[place], [place] [phone] MEDICAL DIRECTORJOSEPH GARCIA M.D. Acanthocytes [Presence] in B lood by Light microscopyOrdered By: Rohan Han on 07-17-2023 Acanthocytes LM Ql (Bld) Slight [facility] Basic Metabolic Panelon 06-27 Anion gap [Moles/Vol] 16.3 mmol/L High 6.0-15.0 [facility] Comment on above: Performed By: #### B MP ####[address] Calcium [Mass/Vol] 7.5 mg/dL Low 8.6-10.3 [facility] Comment on above: Performed By: #### B MP ####[address] Chloride [Moles/Vol] 94 mmol/L Low 98-107 [facility] Comment on above: Performed By: #### B MP ####[address] CO2 [Moles/Vol] 19.7 mmol/L Low 21.0-31.0 [facility] Comment on above: Performed By: #### B MP ####[place] [id number] [facility] Creatinine [Mass/Vol] 6.18 mg/dL High 0.70-1.30 [facility] Comment on above: Performed By: #### B MP ####[place] [id number] [facility] Creatinine Clr Calc Pharmacy 12.85 Normal [facility] Comment on above: Result Comment: PERF ORMED BY:[address] [address] [address] NUÑEZDA[place], [place] [phone] MEDICAL DIRECTORJOSEPH GARCIA M.D. Performed By: #### B MP ####[address] [address] [facility] GFR/1.73 sq M.predicted MDRD (S/P/Bld) [Vol rate/Area] 9.045 mL/min/{1.73_m2} Normal [facility] Comment on above: Performed By: #### B MP ####[place] [id number] [facility] Glucose [Mass/Vol] 140 mg/dL High 70-100 The [facility] Comment on above: Result Comment: [facility][note 3] Glucose Reference Range is dependent on time and content of last meal. Glucose of more than 200 mg/dL in a nonstressed, ambulatory subject supports the diagnosis of Diabetes Mellitus. ADA recommended reference range Performed By: #### B MP ####[place] [id number] [facility] Potassium [Moles/Vol] 5.0 mmol/L Normal 3.5-5.1 [facility] Comment on above: Performed By: #### B MP ####[place] [id number] [facility] Sodium [Moles/Vol] 125 mmol/L Low 136-145 [facility] Comment on above: Performed By: #### B MP ####[place] [id number] [facility] Urea nitrogen [Mass/Vol] 99 mg/dL High 7-25 [facility] Comment on above: Performed By: #### B MP ####[place] [id number] [facility] Blood toxic granulation dete ction by light microscopyOrdered By: Rohan Han on 07-17-2023 Toxic granules LM Ql (Bld) Slight [facility] Diff and CBCon 07-17-2023 Acanthocytes Slight Normal The [facility] Comment on above: Performed By: #### D IFF CBC ####[place] [id number] [facility] Band form neutrophils/100 WBC (Bld) 2 % Normal 0-5 [facility] Comment on above: Performed By: #### D IFF CBC ####[address] [address] [facility] Eosinophils/100 WBC (Bld) 1 % Normal 1-3 [facility] Comment on above: Performed By: #### D IFF CBC ####[address] [address] [facility] Erythrocyte distribution width (RBC) [Ratio] 13.2 % Normal 12.0-14.8 [facility] Comment on above: Performed By: #### D IFF CBC ####[place] [id number] [facility] Giant Platelet Tally 1 /100{WBC} Normal [facility] Comment on above: Performed By: #### D IFF CBC ####[place] [id number] [facility] Hematocrit (Bld) [Volume fraction] 20.0 % Low 38.8-50.0 [facility] Comment on above: Performed By: #### D IFF CBC ####[place] [id number] [facility] Hemoglobin (Bld) [Mass/Vol] 6.9 g/dL Low 13.0-17.0 [facility] Comment on above: Performed By: #### D IFF CBC ####[place] [id number] [facility] Lymphocytes/100 WBC (Bld) 8 % Low 18-42 [facility] Comment on above: Performed By: #### D IFF CBC ####[place] [id number] [facility] MCH (RBC) [Entitic mass] 30.2 pg Normal 27.5-35.2 [facility] Comment on above: Performed By: #### D IFF CBC ####[place] [id number] [facility] MCV (RBC) [Entitic vol] 88.0 fL Normal 83.5-101 [facility] Comment on above: Performed By: #### D IFF CBC ####[address] [address] [address] [place] [address] [facility] Mean Corpuscular HGB Conc 34.4 g/dL Normal 32.5-35.6 [facility] Comment on above: Performed By: #### D IFF CBC ####[address] [address] [facility] Metamyelocytes 4 % High 0-0 The [facility] Comment on above: Performed By: #### D IFF CBC ####[address] [address] [facility] Monocytes/100 WBC (Bld) 5 % Normal 2-11 [facility] Comment on above: Performed By: #### D IFF CBC ####[address] [address] [facility] Myelocytes 1 % High 0-0 [facility] Comment on above: Performed By: #### D IFF CBC ####[address] [address] [facility] Platelet Estimate Increased Normal Normal The [facility] Comment on above: Performed By: #### D IFF CBC ####[address] [address] [facility] Platelet mean volume (Bld) [Entitic vol] 7.5 fL Normal 6.6-10.1 [facility] Comment on above: Result Comment: PERF ORMED BY:[place] [address] [address] [place], [place] [phone] MEDICAL DIRECTORJOSEPH GARCIA M.D. Performed By: #### D IFF CBC ####[address] [address] [facility] Platelet Morphology Normal Normal Normal The [facility] Comment on above: Result Comment: PERF ORMED BY:[place] [address] [address] [place], [place] [phone] MEDICAL DIRECTORJOSEPH GARCIA M.D. Performed By: #### D IFF CBC ####[address] [address] [place] Platelets (Bld) [#/Vol] 461 10*3/uL High 150-450 [facility] Comment on above: Performed By: #### D IFF CBC ####[address] [place] [address] [facility] Poikilocytosis Slight Normal The [facility] Comment on above: Performed By: #### D IFF CBC ####[address] [place] [address] [facility] RBC (Bld) [#/Vol] 2.27 10*6/uL Low 3.90-5.60 [facility] Comment on above: Performed By: #### D IFF CBC ####[place] [id number] [facility] Segmented neutrophils/100 WBC (Bld) 80 % High 50-70 [facility] Comment on above: Performed By: #### D IFF CBC ####[place] [id number] [facility] Toxic Granulation Slight Normal The [facility] Comment on above: Performed By: #### D IFF CBC ####[address] [address] [facility] WBC (Bld) [#/Vol] 22.7 10*3/uL High 4.1-10.5 [facility] Comment on above: Performed By: #### D IFF CBC ####[place] [id number] [facility] Giant platelets/100 leukocyt es [Ratio] in Blood by Manual countOrdered By: Rohan Han on 07-17-2023 Giant platelets/100 WBC Manual cnt (Bld) [Ratio] 1 /100{WBC} [facility] Glucose Poct Glucometerson 0 07-17-2023 Glucose [Mass/Vol] 178 mg/dL Normal [facility] Comment on above: Result Comment: [place] Glucose Reference Range is dependent on time and content of last meal. Glucose of more than 200 mg/dL in a nonstressed, ambulatory subject supports the diagnosis of Diabetes Mellitus.PERFORMED BY:[place] [address] [address] [address] [place], [place] [phone] MEDICAL DIRECTORJOSEPH GARCIA M.D. Performed By: #### G LULS ####Point of Care testing, Commemt1 Glu2: Cleaned Meter Normal [facility] Comment on above: Result Comment: PERF ORMED BY:[place] [address] [address] NUÑEZDA[place], [place] [phone] MEDICAL DIRECTORJOSEPH GARCIA M.D. Performed By: #### G LULS ####Point of Care testing, Glucose [Mass/Vol] 132 mg/dL Normal [facility] Comment on above: Result Comment: [place] om Glucose Reference Range is dependent on time and content of last meal. Glucose of more than 200 mg/dL in a nonstressed, ambulatory subject supports the diagnosis of Diabetes Mellitus. Performed By: #### G LULS ####Point of Care testing, Commemt1 Glu2: Cleaned Meter Normal [facility] Comment on above: Result Comment: PERF ORMED BY:[address] [place], [place] [phone] MEDICAL DIRECTORJOSEPH GARCIA M.D. Performed By: #### G LULS ####Point of Care testing, Glucose [Mass/Vol] 116 mg/dL Normal [facility] Comment on above: Result Comment: [place] om Glucose Reference Range is dependent on time and content of last meal. Glucose of more than 200 mg/dL in a nonstressed, ambulatory subject supports the diagnosis of Diabetes Mellitus. Performed By: #### G LULS ####Point of Care testing, Commemt1 Glu2: Cleaned Meter Normal [facility] Comment on above: Result Comment: PERF ORMED BY:[place] [address] [address] NUÑ[place]ZDA[place], [place] [phone] MEDICAL SILVIA GARCIA M.D. Performed By: #### G LULS ####Point of Care testing, Glucose [Mass/Vol] 151 mg/dL Normal [facility] Comment on above: Result Comment: [place] om Glucose Reference Range is dependent on time and content of last meal. Glucose of more than 200 mg/dL in a nonstressed, ambulatory subject supports the diagnosis of Diabetes Mellitus. Performed By: #### G LULS ####Point of Care testing, Commemt1 Glu2: Cleaned Meter Normal [facility] Comment on above: Result Comment: PERF ORMED BY:[address] LOYATracyLUZ [place], [place] [phone] MEDICAL DIRECTORJOSEPH GARCIA M.D. Performed By: #### G LULS ####Point of Care testing, Glucose [Mass/Vol] 165 mg/dL Normal [facility] Comment on above: Result Comment: [place] om Glucose Reference Range is dependent on time and content of last meal. Glucose of more than 200 mg/dL in a nonstressed, ambulatory subject supports the diagnosis of Diabetes Mellitus. Performed By: #### G LULS ####Point of Care testing, Commemt1 Glu2: Cleaned Meter Normal [facility] Comment on above: Result Comment: PERF ORMED BY:[address] LOYATracyLUZ [place], [place] [phone] MEDICAL DIRECTORJOSEPH GARCIA M.D. Performed By: #### G LULS ####Point of Care testing, Glucose [Mass/Vol] 153 mg/dL Normal [facility] Comment on above: Result Comment: [place] om Glucose Reference Range is dependent on time and content of last meal. Glucose of more than 200 mg/dL in a nonstressed, ambulatory subject supports the diagnosis of Diabetes Mellitus. Performed By: #### G LULS ####Point of Care testing, LeukoReduced RBCon 4 LeukoReduced RBC TRANSFUSED 07/18/23 0925 Normal [facility] No Panel InformationOrdered By: Tello Nava on 07-17-2023 Bedside Glucose Comment Glu2: cleaned meter [facility] Type and Screenon 07-17-2023 ABO and Rh group Nom (Bld) Blood group O Rh(D) positive Normal [facility] Comment on above: Order Comment: Trans fuse now? Y Number of units to transfuse now? 1 Transfuse now? Y Number of units to transfuse now? 2 XR chest 1V portableon 07-17 XR chest 1V portable Normal [facility] Basic Metabolic Panelon 06-27 Anion gap [Moles/Vol] 16.2 mmol/L High 6.0-15.0 [facility] Comment on above: Performed By: #### B MP ####[address] [place] [address] [facility] Calcium [Mass/Vol] 7.4 mg/dL Low 8.6-10.3 [facility] Comment on above: Performed By: #### B MP ####[address] [place] [address] [facility] Chloride [Moles/Vol] 93 mmol/L Low 98-107 [facility] Comment on above: Performed By: #### B MP ####[address] [address] [facility] CO2 [Moles/Vol] 20.6 mmol/L Low 21.0-31.0 [facility] Comment on above: Performed By: #### B MP ####[address] [address] [facility] Creatinine [Mass/Vol] 5.95 mg/dL Significan t change up 0.70-1.30 [facility] Comment on above: Performed By: #### B MP ####[address] [address] [facility] Creatinine Clr Calc Pharmacy 13.34 Normal [facility] Comment on above: Result Comment: PERF ORMED BY:[address] [place], [place] [phone] MEDICAL DIRECTORJOSEPH GARCIA M.D. Performed By: #### B MP ####[address] [address] [facility] GFR/1.73 sq M.predicted MDRD (S/P/Bld) [Vol rate/Area] 9.466 mL/min/{1.73_m2} Normal [facility] Comment on above: Performed By: #### B MP ####[place] [id number] [facility] Glucose [Mass/Vol] 166 mg/dL High 70-100 [facility] Comment on above: Result Comment: [place] om Glucose Reference Range is dependent on time and content of last meal. Glucose of more than 200 mg/dL in a nonstressed, ambulatory subject supports the diagnosis of Diabetes Mellitus. ADA recommended reference range Performed By: #### B MP ####[place] [id number] [facility] Potassium [Moles/Vol] 4.8 mmol/L Normal 3.5-5.1 [facility] Comment on above: Performed By: #### B MP ####[place] [id number] [facility] Sodium [Moles/Vol] 125 mmol/L Low 136-145 [facility] Comment on above: Performed By: #### B MP ####[place] [id number] [facility] Urea nitrogen [Mass/Vol] 85 mg/dL High 7-25 [facility] Comment on above: Performed By: #### B MP ####[place] [id number] [facility] Glucose Poct Glucometerson 0 - Commemt1 Glu2: Cleaned Meter Normal [facility] Comment on above: Result Comment: PERF ORMED BY:[address] [place], [place] [phone] MEDICAL DIRECTORJOSEPH GARCIA M.D. Performed By: #### G LULS ####Point of Care testing, Glucose [Mass/Vol] 152 mg/dL Normal [facility] Comment on above: Result Comment: [place] Glucose Reference Range is dependent on time and content of last meal. Glucose of more than 200 mg/dL in a nonstressed, ambulatory subject supports the diagnosis of Diabetes Mellitus. Performed By: #### G LULS ####Point of Care testing, Glucose [Mass/Vol] 150 mg/dL Normal [facility] Comment on above: Result Comment: [place] om Glucose Reference Range is dependent on time and content of last meal. Glucose of more than 200 mg/dL in a nonstressed, ambulatory subject supports the diagnosis of Diabetes Mellitus.PERFORMED BY:[place] [address] [address] [place], [place] [phone] MEDICAL DIRECTORJOSEPH GARCIA M.D. Performed By: #### G LULS ####Point of Care testing, Glucose [Mass/Vol] 208 mg/dL Normal [facility] Comment on above: Result Comment: [place] om Glucose Reference Range is dependent on time and content of last meal. Glucose of more than 200 mg/dL in a nonstressed, ambulatory subject supports the diagnosis of Diabetes Mellitus.PERFORMED BY:[place] [address] [address] [place], [place] [phone] MEDICAL DIRECTORJOSEPH GARCIA M.D. Performed By: #### G LULS ####Point of Care testing, Commemt1 Glu2: Cleaned Meter Normal [facility] Comment on above: Result Comment: PERF ORMED BY:[place] [address] [address] LOYATr[address]LU[address] [place], [place] [phone] MEDICAL DIRECTORJOSEPH GARCIA M.D. Performed By: #### G LULS ####Point of Care testing, Glucose [Mass/Vol] 196 mg/dL Normal [facility] Comment on above: Result Comment: [place] om Glucose Reference Range is dependent on time and content of last meal. Glucose of more than 200 mg/dL in a nonstressed, ambulatory subject supports the diagnosis of Diabetes Mellitus. Performed By: #### G LULS ####Point of Care testing, Hepatitis Acute Panelon 06-27 HBsAg Screen Negative Normal Negative [facility] Comment on above: Performed By: #### H EPACUTE, HBSAB, HBCAB ####[facility] , Hepatitis A Antibody IgM Negative Normal Negative [facility] Comment on above: Performed By: #### H EPACUTE, HBSAB, HBCAB ####[facility] , Hepatitis B Core Antibody IgM Negative Normal Negative [facility] Comment on above: Performed By: #### H EPACUTE, HBSAB, HBCAB ####[facility] , Hepatitis C Virus Antibody Non-Reactive Normal Non Reactive [facility] Comment on above: Performed By: #### H EPACUTE, HBSAB, HBCAB ####[facility] , Interpretation Hepatitis C Normal . [facility] Comment on above: Result Comment: Not infected with HCV unless early or acute infection is suspected (which may be delayed in an immunocompromised individual), or other evidence exists to indicate HCV infection. Performed By: #### H EPACUTE, HBSAB, HBCAB ####[facility] , Hepatitis B Core Antibodyon 07-16-2023 Hepatitis B Core Antibody Negative Normal Negative [facility] Comment on above: Result Comment: Perf ormed at: - [facility] [address] [id number] [employer] Supervisor: Alvaro Verde PhD, Phone: [phone] BY:[address] [place], [place] [phone] MEDICAL DIRECTORJOSEPH GARCIA M.D. Performed By: #### H EPACUTE, HBSAB, HBCAB ####[facility] , Hepatitis B Surface Antibody on 07-16-2023 Hepatitis B Surface Antibody Non-Reactive Normal . [facility] Comment on above: Result Comment: Non Reactive: Inconsistent with immunity, less than 10 mIU/mL Reactive: Consistent with immunity, greater than 9.9 mIU/mL Performed By: #### H EPACUTE, HBSAB, HBCAB ####[facility] , Hepatitis B virus surface Ab [Presence] in SerumOrdered By: Sanket Hammer on 07-16-2023 HBV surface Ab Ql (S) Non-Reactive . [facility] Comment on above: Non Reactive: Incons istent with immunity, less than 10 mIU/mL Reactive: Consistent with immunity, greater than 9.9 mIU/mL Hepatitis B virus surface Ag [Presence] in Serum or Plasma by ImmunoassayOrdered By: Sanket Hammer on 07-16-2023 HBV surface Ag IA Ql Negative Negative [facility] Hepatitis C virus IgG Ab [Pr esence] in Serum or Plasma by ImmunoassayOrdered By: Sanket Hammer on 07-16-2023 HCV IgG IA Ql Non-Reactive Non Reactive [facility] Hepatitis C virus RNA [Units /volume] (viral load) in Serum or Plasma by JONES with probOrdered By: Sanket Hammer on 07-16-2023 HCV RNA JONES+probe Qn N/A [facility] Hepatitis C virus RNA [log u nits/volume] (viral load) in Serum or Plasma by JONES withOrdered By: Sanket Hammer on 07-16-2023 HCV RNA JONES+probe [Log units/Vol] N/A [facility] No Panel InformationOrdered By: Sanket Hammer on 07-16-2023 Hepatitis A IgM Antibody Negative Negative [facility] Hepatitis B Core IgM Antibody Negative Negative [facility] Hepatitis B Core Total Antibody Negative Negative [facility] Comment on above: Performed at: - [address] Director: Alvaro Verde PhD, Phone: [phone] Hepatitis C Interpretation See comment . [facility] Comment on above: Not infected with HC V unless early or acute infection issuspected (which may be delayed in an immunocompromisedindividual), or other evidence exists to indicate HCVinfection. Negative Negative [facility] See comment . [facility] Basic Metabolic Panelon 06-27 Anion gap [Moles/Vol] 15.7 mmol/L High 6.0-15.0 [facility] Comment on above: Performed By: #### B MP ####[facility] Calcium [Mass/Vol] 7.0 mg/dL Low 8.6-10.3 [facility] Comment on above: Performed By: #### B MP ####[facility] [place] [id number] [place] Chloride [Moles/Vol] 94 mmol/L Low 98-107 [facility] Comment on above: Performed By: #### B MP ####[place] [id number] [facility] CO2 [Moles/Vol] 20.1 mmol/L Low 21.0-31.0 [facility] Comment on above: Performed By: #### B MP ####[place] [id number] [facility] Creatinine [Mass/Vol] 5.39 mg/dL Significan t change up 0.70-1.30 [facility] Comment on above: Performed By: #### B MP ####[place] [id number] [facility] Creatinine Clr Calc Pharmacy 14.71 Normal [facility] Comment on above: Result Comment: PERF ORMED BY:[address] [place], [place] [phone] MEDICAL DIRECTORJOSEPH GARCIA M.D. Performed By: #### B MP ####[place] [id number] [facility] GFR/1.73 sq M.predicted MDRD (S/P/Bld) [Vol rate/Area] 10.659 mL/min/{1.73_m2} Normal [facility] Comment on above: Performed By: #### B MP ####[place] [id number] [facility] Glucose [Mass/Vol] 176 mg/dL High 70-100 [facility] Comment on above: Result Comment: [place] Glucose Reference Range is dependent on time and content of last meal. Glucose of more than 200 mg/dL in a nonstressed, ambulatory subject supports the diagnosis of Diabetes Mellitus. ADA recommended reference range Performed By: #### B MP ####[place] [id number] [facility] Potassium [Moles/Vol] 4.8 mmol/L Normal 3.5-5.1 [facility] Comment on above: Performed By: #### B MP ####[address] [address] [facility] Sodium [Moles/Vol] 125 mmol/L Low 136-145 [facility] Comment on above: Performed By: #### B MP ####[place] [id number] [facility] Urea nitrogen [Mass/Vol] 69 mg/dL High 7-25 [facility] Comment on above: Performed By: #### B MP ####[place] [id number] [facility] C reactive protein [Mass/vol ume] in Serum or PlasmaOrdered By: Michael Ramírez on 07-15-2023 CRP [Mass/Vol] 9.7 mg/dL 0.0-0.5 [facility] C-Reactive Proteinon 024 C-Reactive Protein 9.7 mg/dL High 0.0-0.5 [facility] Comment on above: Result Comment: PERF ORMED BY:[address] [place], [place] [phone] MEDICAL DIRECTORJOSEPH GARCIA M.D. Performed By: #### C RP ####[place] [id number] [facility] Diff and CBCon 07-15-2023 Acanthocytes Slight Normal [facility] Comment on above: Performed By: #### D IFF CBC ####[address] [address] [facility] Basophils/100 WBC (Bld) 1 % Normal 0-2 [facility] Comment on above: Performed By: #### D IFF CBC ####[address] [address] [place] Eosinophils/100 WBC (Bld) 3 % Normal 1-3 [facility] Comment on above: Performed By: #### D IFF CBC ####[address] [address] [facility] Erythrocyte distribution width (RBC) [Ratio] 13.1 % Normal 12.0-14.8 [facility] Comment on above: Performed By: #### D IFF CBC ####[id number] [facility] Hematocrit (Bld) [Volume fraction] 25.1 % Low 38.8-50.0 [facility] Comment on above: Performed By: #### D IFF CBC ####[address] [address] [place] [facility] Hemoglobin (Bld) [Mass/Vol] 8.7 g/dL Low 13.0-17.0 [facility] Comment on above: Performed By: #### D IFF CBC ####[place] [id number] [facility] Lymphocytes/100 WBC (Bld) 4 % Low 18-42 [facility] Comment on above: Performed By: #### D IFF CBC ####[place] [id number] [facility] MCH (RBC) [Entitic mass] 29.8 pg Normal 27.5-35.2 [facility] Comment on above: Performed By: #### D IFF CBC ####[place] [id number] [facility] MCV (RBC) [Entitic vol] 86.5 fL Normal 83.5-101 [facility] Comment on above: Performed By: #### D IFF CBC ####[place] [id number] [facility] Mean Corpuscular HGB Conc 34.5 g/dL Normal 32.5-35.6 [facility] Comment on above: Performed By: #### D IFF CBC ####[place] [id number] [facility] Metamyelocytes 1 % High 0-0 [facility] Comment on above: Performed By: #### D IFF CBC ####[place] [id number] [facility] Monocytes/100 WBC (Bld) 3 % Normal 2-11 [facility] Comment on above: Performed By: #### D IFF CBC ####[address] [address] [facility] Myelocytes 1 % High 0-0 [facility] Comment on above: Performed By: #### D IFF CBC ####[address] [address] [facility] Platelet Estimate Normal Normal Normal [facility] Comment on above: Performed By: #### D IFF CBC ####[address] [address] [facility] Platelet mean volume (Bld) [Entitic vol] 7.4 fL Normal 6.6-10.1 [facility] Comment on above: Result Comment: PERF ORMED BY:[address] [place], [place] [phone] MEDICAL DIRECTORJOSEPH GARCIA M.D. Performed By: #### D IFF CBC ####[place] [id number] [facility] Platelet Morphology Normal Normal Normal [facility] Comment on above: Result Comment: PERF ORMED BY:[address] [place], [place] [phone] MEDICAL DIRECTORJOSEPH GARCIA M.D. Performed By: #### D IFF CBC ####[place] [id number] [facility] Platelets (Bld) [#/Vol] 419 10*3/uL Normal 150-450 [facility] Comment on above: Performed By: #### D IFF CBC ####[address] [address] [facility] Poikilocytosis Slight Normal [facility] Comment on above: Performed By: #### D IFF CBC ####[address] [address] [facility] RBC (Bld) [#/Vol] 2.91 10*6/uL Low 3.90-5.60 [facility] Comment on above: Performed By: #### D IFF CBC ####[address] [address] [facility] Segmented neutrophils/100 WBC (Bld) 87 % High 50-70 [facility] Comment on above: Performed By: #### D IFF CBC ####[place] [id number] [facility] WBC (Bld) [#/Vol] 20.5 10*3/uL High 4.1-10.5 [facility] Comment on above: Performed By: #### D IFF CBC ####[place] [id number] [facility] Glucose Poct Glucometerson 0 2- Commemt1 Glu2: Cleaned Meter Normal [facility] Comment on above: Result Comment: PERF ORMED BY:[address] [place], [place] [phone] MEDICAL DIRECTORJOSEPH GARCIA M.D. Performed By: #### G LULS ####Point of Care testing, Glucose [Mass/Vol] 190 mg/dL Normal [facility] Comment on above: Result Comment: [place] om Glucose Reference Range is dependent on time and content of last meal. Glucose of more than 200 mg/dL in a nonstressed, ambulatory subject supports the diagnosis of Diabetes Mellitus. Performed By: #### G LULS ####Point of Care testing, Glucose [Mass/Vol] 221 mg/dL Normal [facility] Comment on above: Result Comment: [place] om Glucose Reference Range is dependent on time and content of last meal. Glucose of more than 200 mg/dL in a nonstressed, ambulatory subject supports the diagnosis of Diabetes Mellitus.PERFORMED BY:[address] [place], [place] [phone] MEDICAL DIRECTORJOSEPH GARCIA M.D. Performed By: #### G LULS ####Point of Care testing, Glucose [Mass/Vol] 214 mg/dL Normal [facility] Comment on above: Result Comment: [place] om Glucose Reference Range is dependent on time and content of last meal. Glucose of more than 200 mg/dL in a nonstressed, ambulatory subject supports the diagnosis of Diabetes Mellitus.PERFORMED BY:[facility] [place], [place] [phone] MEDICAL DIRECTORJOSEPH GARCIA M.D. Performed By: #### G LUANURAG ####Point of Care testing, Glucose [Mass/Vol] 197 mg/dL Normal [facility] Comment on above: Result Comment: [place] Glucose Reference Range is dependent on time and content of last meal. Glucose of more than 200 mg/dL in a nonstressed, ambulatory subject supports the diagnosis of Diabetes Mellitus.PERFORMED BY:[facility] NUÑEZDAVEN[place], [place] [phone] MEDICAL DIRECTORJOSEPH GARCIA M.D. Performed By: #### G VALERY ####Point of Care testing, Anisocytosis [Presence] in B lood by Light microscopyOrdered By: Shun Manning on 07-14-2023 Anisocytosis Ql (Bld) Slight Normal [facility] Comment on above: Performed By: #### D IFF CBC, BMP ####[facility] [id number] [place] [address] [facility] Automated erythrocytes count in urine sediment (number/area)Ordered By: Tello Nava on 07-14-2023 RBC Auto (Urine sed) [#/Area] 10-19 [HPF] 0-4 [facility] Automated leukocytes count i n urine sediment (number/area)Ordered By: Tello Nava on 07-14-2023 WBC Auto (Urine sed) [#/Area] 20-49 [HPF] 0-4 [facility] Automated urine color determ inationOrdered By: Tello Nava on 07-14-2023 Color (U) [place] Critically abnormal Yellow [facility] Comment on above: Order Comment: Name Collection Type:: Clean-Voided Midstream Performed By: #### C UU, UCREA, ADDONUAPLUS, URNA ####[facility] [id number] [place] [address] [facility] Automated urine hyaline cast s count (number/volume)Ordered By: Tello Nava on 07-14-2023 Hyaline casts Auto (U) [#/Vol] 5-9 [LPF] 0-1 [facility] Basic Metabolic Panelon 06-26 Anion gap [Moles/Vol] 12.4 mmol/L Normal 6.0-15.0 [facility] Comment on above: Performed By: #### D IFF CBC, BMP ####[address] [place] [address] [facility] Calcium [Mass/Vol] 7.2 mg/dL Low 8.6-10.3 [facility] Comment on above: Performed By: #### D IFF CBC, BMP ####[address] [place] [address] [facility] Chloride [Moles/Vol] 97 mmol/L Low 98-107 [facility] Comment on above: Performed By: #### D IFF CBC, BMP ####[address] [place] [address] [facility] CO2 [Moles/Vol] 22.0 mmol/L Normal 21.0-31.0 [facility] Comment on above: Performed By: #### D IFF CBC, BMP ####[address] [place] [address] [facility] Creatinine [Mass/Vol] 4.56 mg/dL Significan t change up 0.70-1.30 [facility] Comment on above: Performed By: #### D IFF CBC, BMP ####[address] [address] [facility] Creatinine Clr Calc Pharmacy 17.09 Normal [facility] Comment on above: Result Comment: PERF ORMED BY:[address] [place], [place] [phone] MEDICAL SILVIA GARCIA M.D. Performed By: #### D IFF CBC, BMP ####[address] [place] [address] [place] GFR/1.73 sq M.predicted MDRD (S/P/Bld) [Vol rate/Area] 13.027 mL/min/{1.73_m2} Normal [facility] Comment on above: Performed By: #### D IFF CBC, BMP ####[facility] [place] [address] [facility] Glucose [Mass/Vol] 150 mg/dL High 70-100 [facility] Comment on above: Result Comment: [place] Glucose Reference Range is dependent on time and content of last meal. Glucose of more than 200 mg/dL in a nonstressed, ambulatory subject supports the diagnosis of Diabetes Mellitus. ADA recommended reference range Performed By: #### D IFF CBC, BMP ####[facility] [place] [id number] [facility] Potassium [Moles/Vol] 4.4 mmol/L Normal 3.5-5.1 [facility] Comment on above: Performed By: #### D IFF CBC, BMP ####[address] [place] [address] [facility] Sodium [Moles/Vol] 127 mmol/L Low 136-145 [facility] Comment on above: Performed By: #### D IFF CBC, BMP ####[address] [place] [place] [id number] [facility] Urea nitrogen [Mass/Vol] 57 mg/dL High 7-25 [facility] Comment on above: Performed By: #### D IFF CBC, BMP ####[facility] [place] [id number] [facility] Bilirubin Test strip Ql (U)O rdered By: Tello Nava on 07-14-2023 Bilirubin Ql (U) 1+ Negative [facility] Casts typing in urine sedime nt by light microscopyOrdered By: Tello Nava on 07-14-2023 Casts LM Nom (Urine sed) None seen [LPF] None Seen [facility] Creatinine [Mass/volume] in UrineOrdered By: Tello Nava on 07-14-2023 Creatinine (U) [Mass/Vol] 172.0 mg/dL 14.0-26.0 [facility] Creatinine, Urine (Random)on 07-14-2023 Creatinine, Urine (Random) 172.0 mg/dL High 14.0-26.0 [facility] Comment on above: Result Comment: PERF ORMED BY:[address] [place], [place] [phone] MEDICAL DIRECTORJOSEPH GARCIA M.D. Performed By: #### C UU, CARLOSA, FAUSTINORICHARDUAJAS, APOLONIANA ####[address] [address] [facility] Diff and CBCon 07-14-2023 Eosinophils/100 WBC (Bld) 1 % Normal 1-3 [facility] Comment on above: Performed By: #### D IFF CBC, BMP ####[address] Erythrocyte distribution width (RBC) [Ratio] 13.0 % Normal 12.0-14.8 [facility] Comment on above: Performed By: #### D IFF CBC, BMP ####[place] [id number] [facility] Giant Platelet Tally 2 /100{WBC} Normal [facility] Comment on above: Performed By: #### D IFF CBC, BMP ####[place] [id number] [facility] Hematocrit (Bld) [Volume fraction] 27.6 % Low 38.8-50.0 [facility] Comment on above: Performed By: #### D IFF CBC, BMP ####[place] [id number] [facility] Hemoglobin (Bld) [Mass/Vol] 9.7 g/dL Low 13.0-17.0 [facility] Comment on above: Performed By: #### D IFF CBC, BMP ####[place] [id number] [facility] Lymphocytes/100 WBC (Bld) 6 % Low 18-42 [facility] Comment on above: Performed By: #### D IFF CBC, BMP ####[place] [id number] [facility] MCH (RBC) [Entitic mass] 30.7 pg Normal 27.5-35.2 [facility] Comment on above: Performed By: #### D IFF CBC, BMP ####[place] [id number] [facility] MCV (RBC) [Entitic vol] 87.4 fL Normal 83.5-101 [facility] Comment on above: Performed By: #### D IFF CBC, BMP ####[place] [id number] [facility] Mean Corpuscular HGB Conc 35.1 g/dL Normal 32.5-35.6 [facility] Comment on above: Performed By: #### D IFF CBC, BMP ####[place] [id number] [facility] Metamyelocytes 1 % High 0-0 [facility] Comment on above: Performed By: #### D IFF CBC, BMP ####[address] Microcytosis Slight Normal [facility] Comment on above: Performed By: #### D IFF CBC, BMP ####[place] [id number] [facility] Monocytes/100 WBC (Bld) 2 % Normal 2-11 [facility] Comment on above: Performed By: #### D IFF CBC, BMP ####[place] [id number] [facility] Myelocytes 1 % High 0-0 [facility] Comment on above: Performed By: #### D IFF CBC, BMP ####[place] [id number] [facility] Platelet Estimate Normal Normal Normal [facility] Comment on above: Performed By: #### D IFF CBC, BMP ####[place] [id number] [facility] Platelet mean volume (Bld) [Entitic vol] 7.4 fL Normal 6.6-10.1 [facility] Comment on above: Performed By: #### D IFF CBC, BMP ####[place] [id number] [facility] Platelet Morphology Normal Normal Normal [facility] Comment on above: Result Comment: PERF ORMED BY:[place] [address]Ñ[place], [place] [phone] MEDICAL DIRECTORJOSEPH GARCIA M.D. Performed By: #### D IFF CBC, BMP ####[address] [place] [address] [facility] Platelets (Bld) [#/Vol] 429 10*3/uL Normal 150-450 [facility] Comment on above: Performed By: #### D IFF CBC, BMP ####[address] [place] [address] [facility] Poikilocytosis Slight Normal [facility] Comment on above: Performed By: #### D IFF CBC, BMP ####[address] [address] [facility] Polychromasia Slight Normal [facility] Comment on above: Performed By: #### D IFF CBC, BMP ####[address] [address] [facility] RBC (Bld) [#/Vol] 3.16 10*6/uL Low 3.90-5.60 [facility] Comment on above: Performed By: #### D IFF CBC, BMP ####[address] [address] [facility] Segmented neutrophils/100 WBC (Bld) 89 % High 50-70 [facility] Comment on above: Performed By: #### D IFF CBC, BMP ####[address] [address] [facility] WBC (Bld) [#/Vol] 19.6 10*3/uL High 4.1-10.5 [facility] Comment on above: Performed By: #### D IFF CBC, BMP ####[address] [address] [facility] Dipstick and Microscopicon 0 07-14-2023 Appearance (U) Turbid Critically abnormal Clear [facility] Comment on above: Order Comment: Name Collection Type:: Clean-Voided Midstream Performed By: #### C UU, UCREA, ADDONUAPLUS, URNA ####[address] Bacteria,Urine 1+ High None Seen [facility] Comment on above: Order Comment: Name Collection Type:: Clean-Voided Midstream Performed By: #### C UU, UCREA, ADDONUAPLUS, URNA ####[address] Bilirubin,Urine 1+ High Negative [facility] Comment on above: Order Comment: Name Collection Type:: Clean-Voided Midstream Performed By: #### C UU, UCREA, ADDONUAPLUS, URNA ####[address] Glucose Ql (U) 100 mg/dL High Normal [facility] Comment on above: Order Comment: Name Collection Type:: Clean-Voided Midstream Performed By: #### C UU, UCREA, ADDONUAPLUS, URNA ####[address] Hyaline Casts,Urine 5-9 High 0-1 [facility] Comment on above: Order Comment: Name Collection Type:: Clean-Voided Midstream Performed By: #### C UU, UCREA, ADDONUAPLUS, URNA ####[address] Ketones Ql (U) Trace High Negative [facility] Comment on above: Order Comment: Name Collection Type:: Clean-Voided Midstream Performed By: #### C UU, UCREA, ADDONUAPLUS, URNA ####[address] Leukocyte esterase Test strip Ql (U) 2+ High Negative [facility] Comment on above: Order Comment: Name Collection Type:: Clean-Voided Midstream Performed By: #### C UU, UCREA, ADDONUAPLUS, URNA ####[address] [address] [facility] Nitrite,Urine Positive High Negative [facility] Comment on above: Order Comment: Name Collection Type:: Clean-Voided Midstream Performed By: #### C UU, UCREA, ADDONUAPLUS, URNA ####[place] [id number] [facility] Occult Blood,Urine 3+ High Negative [facility] Comment on above: Order Comment: Name Collection Type:: Clean-Voided Midstream Result Comment: PERF ORMED BY:[address] [place], [place] [phone] MEDICAL DIRECTORJOSEPH GARCIA M.D. Performed By: #### C UU, UCREA, ADDONUAPLUS, URNA ####[address] Other Casts,Urine None Seen Normal None Seen [facility] Comment on above: Order Comment: Name Collection Type:: Clean-Voided Midstream Result Comment: PERF ORMED BY:[address] [place], [place] [phone] MEDICAL DIRECTORJOSEPH GARCIA M.D. Performed By: #### C UU, UCREA, ADDONUAPLUS, URNA ####[place] [id number] [facility] RBC,Urine 10-19 High 0-4 [facility] Comment on above: Order Comment: Name Collection Type:: Clean-Voided Midstream Performed By: #### C UU, UCREA, ADDONUAPLUS, URNA ####[place] [id number] [facility] Specificy [place],Urine 1.024 Normal 1.001-1.030 [facility] Comment on above: Order Comment: Name Collection Type:: Clean-Voided Midstream Performed By: #### C UU, UCREA, ADDONUAPLUS, URNA ####[place] [id number] [facility] Squamous Epithelial Cell,Urine 5-9 High 0-2 [facility] Comment on above: Order Comment: Name Collection Type:: Clean-Voided Midstream Performed By: #### C UU, UCREA, ADDONUAPLUS, URNA ####[place] [id number] [facility] Urobilinogen,Urine Normal Normal Normal [facility] Comment on above: Order Comment: Name Collection Type:: Clean-Voided Midstream Performed By: #### C UU, UCREA, ADDONUAPLUS, URNA ####[address] WBC,Urine 20-49 High 0-4 [facility] Comment on above: Order Comment: Name Collection Type:: Clean-Voided Midstream Performed By: #### C UU, UCREA, ADDONUAPLUS, URNA ####[address] Glucose Poct Glucometerson 0 - Glucose [Mass/Vol] 221 mg/dL Normal [facility] Comment on above: Result Comment: [place] om Glucose Reference Range is dependent on time and content of last meal. Glucose of more than 200 mg/dL in a nonstressed, ambulatory subject supports the diagnosis of Diabetes Mellitus.PERFORMED BY:[address], [place] [phone] MEDICAL DIRECTORJOSEPH GARCIA M.D. Performed By: #### G LULS ####Point of Care testing, Commemt1 Glu2: Cleaned Meter Normal [facility] Comment on above: Result Comment: PERF ORMED BY:[address] [address] [address], [place] [phone] MEDICAL SILVIA GARCIA M.D. Performed By: #### G LULS ####Point of Care testing, Glucose [Mass/Vol] 212 mg/dL Normal [facility] Comment on above: Result Comment: [place] om Glucose Reference Range is dependent on time and content of last meal. Glucose of more than 200 mg/dL in a nonstressed, ambulatory subject supports the diagnosis of Diabetes Mellitus. Performed By: #### G LULS ####Point of Care testing, Commemt1 Glu2: Cleaned Meter Normal [facility] Comment on above: Result Comment: PERF ORMED BY:[address] [address] [address]ikoTr[address]LU[address] [place], [place] [phone] MEDICAL DIRECTORJOSEPH GARCIA M.D. Performed By: #### G LULS ####Point of Care testing, Glucose [Mass/Vol] 253 mg/dL Normal [facility] Comment on above: Result Comment: [place] om Glucose Reference Range is dependent on time and content of last meal. Glucose of more than 200 mg/dL in a nonstressed, ambulatory subject supports the diagnosis of Diabetes Mellitus. Performed By: #### G LULS ####Point of Care testing, Glucose [Mass/Vol] 158 mg/dL Normal [facility] Comment on above: Result Comment: [place] om Glucose Reference Range is dependent on time and content of last meal. Glucose of more than 200 mg/dL in a nonstressed, ambulatory subject supports the diagnosis of Diabetes Mellitus.PERFORMED BY:[address] LOYATracyLUZ [place], [place] [phone] MEDICAL DIRECTORJOSEPH GARCIA M.D. Performed By: #### G LULS ####Point of Care testing, Ketones Auto test strip (U) [Mass/Vol]Ordered By: Tello Nava on 07-14-2023 Ketones (U) [Mass/Vol] Trace Negative [facility] Microcytes LM Ql (Bld)Ordere d By: Shun Manning on 07-14-2023 Microcytes Ql (Bld) Slight [facility] Nitrite Test strip Ql (U)Ord ered By: Tello Nava on 07-14-2023 Nitrite Ql (U) Positive Negative [facility] Sodium [Moles/volume] in Uri neOrdered By: Tello Naav on 07-14-2023 Sodium (U) [Moles/Vol] 25.0 mmol/L Normal [facility] Comment on above: No reference range e stablished Result Comment: No r eference range established Performed By: #### C NIDIA, JAYNE, KRYSTA, URNA ####[address] [place] [id number] [facility] Specific gravity Auto test s trip (U) [Rel density]Ordered By: Tello Nava on 07-14-2023 Specific gravity (U) [Rel density] 1.024 1.001-1.030 [facility] Squamous epithelial cells de tection in urine sediment by light microscopyOrdered By: Tello Nava on 07-14-2023 Epithelial cells.squamous LM Ql (Urine sed) 5-9 [HPF] 0-2 [facility] Urine Cultureon 07-14-2023 Bacteria identified Cx Nom (U) No Growth 2 Days PERFORMED BY: [facility] [address] [place] [address] PATHOLOGIST MARKETING SALES SUPERVISOR JOSEPH GARCIA M.D. Normal [facility] Comment on above: Performed By: #### C NIDIA, JAYNE, KRYSTA, DARREN ####[address] [place] [id number] [facility] Urine bacteria detection by automated methodOrdered By: Tello Nava on 07-14-2023 Bacteria Auto Ql (U) 1+ None Seen [facility] Urine clarity by refractomet ry automatedOrdered By: Tello Nava on 07-14-2023 Clarity Refractometry automated (U) Turbid Clear [facility] Urine culture routineOrdered By: Tello Nava on 07-14-2023 Bacteria identified Cx Nom (U) No Growth 2 Days [facility] Bacteria identified Cx Nom (U) No Growth 2 Days [facility] Urine glucose measurement by automated test strip (mass/volume)Ordered By: Tello Nava on 07-14-2023 Glucose Auto test strip (U) [Mass/Vol] 100 mg/dL Normal [facility] Urine hemoglobin detection b y automated test stripOrdered By: Tello Nava on 07-14-2023 Hemoglobin Auto test strip Ql (U) 3+ Negative [facility] Urine leukocyte esterase det ection by automated test stripOrdered By: Tello Nava on 07-14-2023 Leukocyte esterase Auto test strip Ql (U) 2+ Negative [facility] Urine pH measurement by auto mated test stripOrdered By: Tello Nava on 07-14-2023 pH (U) 5.0 [pH] Normal 5.0-9.0 [facility] Comment on above: Order Comment: Name Collection Type:: Clean-Voided Midstream Performed By: #### C UU, UCREA, ADDONUAPLUS, URNA ####[place] [id number] Urine protein measurement by automated test strip (mass/volume)Ordered By: Tello Nava on 07-14-2023 Protein (U) [Mass/Vol] 30 mg/dL High Negative [facility] Comment on above: Order Comment: Name Collection Type:: Clean-Voided Midstream Performed By: #### C UU, UCREA, ADDONUAPLUS, URNA ####[place] [id number] [facility] Urobilinogen Auto test strip (U) [Mass/Vol]Ordered By: Tello Nava on 07-14-2023 Urobilinogen (U) [Mass/Vol] Normal mg/dL Normal [facility] Basic Metabolic Panelon 06-26 Anion gap [Moles/Vol] 11.2 mmol/L Normal 6.0-15.0 [facility] Comment on above: Performed By: #### C BCNO, BMP ####[place] [id number] [facility] Calcium [Mass/Vol] 7.5 mg/dL Low 8.6-10.3 [facility] Comment on above: Performed By: #### C BCNO, BMP ####[place] [address] [place] [id number] [facility] Chloride [Moles/Vol] 98 mmol/L Normal 98-107 [facility] Comment on above: Performed By: #### C BCNO, BMP ####[address] [address] [facility] CO2 [Moles/Vol] 22.6 mmol/L Normal 21.0-31.0 [facility] Comment on above: Performed By: #### C TOÑA, BMP ####[place] [address] [place] [address] [facility] Creatinine [Mass/Vol] 2.79 mg/dL Significan t change up 0.70-1.30 [facility] Comment on above: Performed By: #### C TOÑA, BMP ####[address] [address] [facility] Creatinine Clr Calc Pharmacy 27.15 Normal [facility] Comment on above: Result Comment: PERF ORMED BY:[address] [place], [place] [phone] MEDICAL DIRECTORJOSEPH GARCIA M.D. Performed By: #### C TOÑA, BMP ####[place] [id number] [facility] GFR/1.73 sq M.predicted MDRD (S/P/Bld) [Vol rate/Area] 23.490 mL/min/{1.73_m2} Normal [facility] Comment on above: Performed By: #### C TOÑA, BMP ####[address] [address] [facility] Glucose [Mass/Vol] 189 mg/dL High 70-100 [facility] Comment on above: Result Comment: [place] Glucose Reference Range is dependent on time and content of last meal. Glucose of more than 200 mg/dL in a nonstressed, ambulatory subject supports the diagnosis of Diabetes Mellitus. ADA recommended reference range Performed By: #### C TOÑA, BMP ####[place] [address] [place] [address] [facility] Potassium [Moles/Vol] 3.8 mmol/L Normal 3.5-5.1 [facility] Comment on above: Performed By: #### C TOÑA, BMP ####[address] [place] [address] [facility] Sodium [Moles/Vol] 128 mmol/L Low 136-145 [facility] Comment on above: Performed By: #### C OUSMANE DING ####[place] [id number] [facility] Urea nitrogen [Mass/Vol] 43 mg/dL High 7-25 [facility] Comment on above: Performed By: #### C TOÑA, OUSMANE ####[place] [id number] [facility] Glucose Poct Glucometerson 0 07-13-2023 Glucose [Mass/Vol] 235 mg/dL Normal [facility] Comment on above: Result Comment: [place] om Glucose Reference Range is dependent on time and content of last meal. Glucose of more than 200 mg/dL in a nonstressed, ambulatory subject supports the diagnosis of Diabetes Mellitus.PERFORMED BY:[address] [place], [place] [phone] MEDICAL DIRECTORJOSEPH GARCIA M.D. Performed By: #### G LULS ####Point of Care testing, Commemt1 Glu2: Cleaned Meter Normal [facility] Comment on above: Result Comment: PERF ORMED BY:[address] [place], [place] [phone] MEDICAL DIRECTORJOSEPH GARCIA M.D. Performed By: #### G LULS ####Point of Care testing, Glucose [Mass/Vol] 230 mg/dL Normal [facility] Comment on above: Result Comment: [place] om Glucose Reference Range is dependent on time and content of last meal. Glucose of more than 200 mg/dL in a nonstressed, ambulatory subject supports the diagnosis of Diabetes Mellitus. Performed By: #### G LULS ####Point of Care testing, Glucose [Mass/Vol] 190 mg/dL Normal [facility] Comment on above: Result Comment: [place] om Glucose Reference Range is dependent on time and content of last meal. Glucose of more than 200 mg/dL in a nonstressed, ambulatory subject supports the diagnosis of Diabetes Mellitus.PERFORMED BY:[place] [address] [place], [place] [phone] MEDICAL DIRECTORJOSEPH GARCIA M.D. Performed By: #### G VALERY ####Point of Care testing, Glucose [Mass/Vol] 202 mg/dL Normal [facility] Comment on above: Result Comment: [facility][note 3] Glucose Reference Range is dependent on time and content of last meal. Glucose of more than 200 mg/dL in a nonstressed, ambulatory subject supports the diagnosis of Diabetes Mellitus.PERFORMED BY:[place] [address] [place], [place] [phone] MEDICAL DIRECTORJOSEPH GARCIA M.D. Performed By: #### G VALERY ####Point of Care testing, Glucose [Mass/Vol] 168 mg/dL Normal [facility] Comment on above: Result Comment: [facility][note 3] Glucose Reference Range is dependent on time and content of last meal. Glucose of more than 200 mg/dL in a nonstressed, ambulatory subject supports the diagnosis of Diabetes Mellitus.PERFORMED BY:[address] [place], [place] [phone] MEDICAL DIRECTORJOSEPH GARCIA M.D. Performed By: #### G VALERY ####Point of Care testing, Hemogram CBC Without Diffon 07-13-2023 Erythrocyte distribution width (RBC) [Ratio] 13.3 % Normal 12.0-14.8 [facility] Comment on above: Performed By: #### C OUSMANE DING ####[address] [address] [facility] Hematocrit (Bld) [Volume fraction] 28.9 % Low 38.8-50.0 [facility] Comment on above: Performed By: #### C OUSMANE DING ####[address] [address] [facility] Hemoglobin (Bld) [Mass/Vol] 9.9 g/dL Low 13.0-17.0 [facility] Comment on above: Performed By: #### C TOÑA BMP ####[place] [address] [place] [address] [facility] MCH (RBC) [Entitic mass] 30.2 pg Normal 27.5-35.2 [facility] Comment on above: Performed By: #### C TOÑA, BMP ####[address] [address] [facility] MCV (RBC) [Entitic vol] 87.6 fL Normal 83.5-101 [facility] Comment on above: Performed By: #### C TOÑA, BMP ####[address] [address] [facility] Mean Corpuscular HGB Conc 34.5 g/dL Normal 32.5-35.6 [facility] Comment on above: Performed By: #### C TOÑA, BMP ####[place] [id number] [facility] Platelet mean volume (Bld) [Entitic vol] 7.4 fL Normal 6.6-10.1 [facility] Comment on above: Result Comment: PERF ORMED BY:[address] [place], [place] [phone] MEDICAL DIRECTORJOSEPH GARCIA M.D. Performed By: #### C TOÑA, BMP ####[address] [address] [facility] Platelets (Bld) [#/Vol] 433 10*3/uL Normal 150-450 [facility] Comment on above: Performed By: #### C TOÑA, BMP ####[place] [id number] [facility] RBC (Bld) [#/Vol] 3.29 10*6/uL Low 3.90-5.60 [facility] Comment on above: Performed By: #### Trell DING, BMP ####[place] [id number] [facility] WBC (Bld) [#/Vol] 22.4 10*3/uL High 4.1-10.5 [facility] Comment on above: Performed By: #### C TOÑA, BMP ####[address] [address] [facility] US renal BIon 07-13-2023 US renal BI Normal [facility] Vancomycin [Mass/volume] in Serum or Plasma --peakOrdered By: Arnaldo Thomas on 07-13-2023 Vancomycin peak [Mass/Vol] 13.9 ug/mL 20.0-40.0 [facility] Comment on above: Last dose: - Vancomycin,Peakon 07-13-2023 Vancomycin,Peak 13.9 ug/mL Low 20.0-40.0 [facility] Comment on above: Order Comment: Comme nt ?DRAW 1 HOUR AFTER INFUSION COMPLETES Date of last dose?: [id number] Time of last dose?: 2099 Result Comment: Last dose: -PERFORMED BY:[address] [place] [place], [place] [phone] MEDICAL DIRECTORJOSEPH GARCIA M.D. Performed By: #### V ANCP ####[place] [id number] [facility] Basic Metabolic Panelon 06-26 Anion gap [Moles/Vol] 12.3 mmol/L Normal 6.0-15.0 [facility] Comment on above: Performed By: #### S CAN CBC, BMP ####[place] [id number] [facility] Calcium [Mass/Vol] 7.6 mg/dL Low 8.6-10.3 [facility] Comment on above: Performed By: #### S CAN CBC, BMP ####[place] [id number] [facility] Chloride [Moles/Vol] 102 mmol/L Normal 98-107 [facility] Comment on above: Performed By: #### S CAN CBC, BMP ####[place] [id number] [facility] CO2 [Moles/Vol] 21.4 mmol/L Normal 21.0-31.0 [facility] Comment on above: Performed By: #### S CAN CBC, BMP ####[facility] [place] [address] [facility] Creatinine [Mass/Vol] 1.17 mg/dL Normal 0.70-1.30 [facility] Comment on above: Performed By: #### S CAN CBC, BMP ####[place] [address] [place] [address] [facility] Creatinine Clr Calc Pharmacy 64.74 Normal [facility] Comment on above: Result Comment: PERF ORMED BY:[address] [place], [place] [phone] MEDICAL SILVIA GARCIA M.D. Performed By: #### S CAN CBC, BMP ####[place] [address] [place] [id number] [place] GFR/1.73 sq M.predicted MDRD (S/P/Bld) [Vol rate/Area] mL/min/{1.73_m2} Normal [facility] Comment on above: Performed By: #### S CAN CBC, BMP ####[place] [id number] [facility] Glucose [Mass/Vol] 160 mg/dL High 70-100 [facility] Comment on above: Result Comment: [place] Glucose Reference Range is dependent on time and content of last meal. Glucose of more than 200 mg/dL in a nonstressed, ambulatory subject supports the diagnosis of Diabetes Mellitus. ADA recommended reference range Performed By: #### S CAN CBC, BMP ####[place] [id number] [facility] Potassium [Moles/Vol] 3.7 mmol/L Normal 3.5-5.1 [facility] Comment on above: Performed By: #### S CAN CBC, BMP ####[place] [id number] [facility] Sodium [Moles/Vol] 132 mmol/L Low 136-145 [facility] Comment on above: Performed By: #### S CAN CBC, BMP ####[place] [id number] [facility] Urea nitrogen [Mass/Vol] 31 mg/dL High 7-25 [facility] Comment on above: Performed By: #### S CAN CBC, BMP ####[facility] [place] [address] [facility] Glucose Poct Glucometerson 0 07-12-2023 Glucose [Mass/Vol] 185 mg/dL Normal [facility] Comment on above: Result Comment: [place] om Glucose Reference Range is dependent on time and content of last meal. Glucose of more than 200 mg/dL in a nonstressed, ambulatory subject supports the diagnosis of Diabetes Mellitus.PERFORMED BY:[place] [address] [address] [place]YAT[address] [place], [place] [phone] MEDICAL DIRECTORJOSEPH GARCIA M.D. Performed By: #### G LULS ####Point of Care testing, Commemt1 Glu2: Cleaned Meter Normal [facility] Comment on above: Result Comment: PERF ORMED BY:[address] [place] [place], [place] [phone] MEDICAL DIRECTORJOSEPH GARCIA M.D. Performed By: #### G LULS ####Point of Care testing, Glucose [Mass/Vol] 200 mg/dL Normal [facility] Comment on above: Result Comment: [place] om Glucose Reference Range is dependent on time and content of last meal. Glucose of more than 200 mg/dL in a nonstressed, ambulatory subject supports the diagnosis of Diabetes Mellitus. Performed By: #### G LULS ####Point of Care testing, Glucose [Mass/Vol] 213 mg/dL Normal [facility] Comment on above: Result Comment: [place] om Glucose Reference Range is dependent on time and content of last meal. Glucose of more than 200 mg/dL in a nonstressed, ambulatory subject supports the diagnosis of Diabetes Mellitus.PERFORMED BY:[place] [address] [address] NUÑ[place]DA[place], [place] [phone] MEDICAL DIRECTORJOSEPH GARCIA M.D. Performed By: #### G LULS ####Point of Care testing, Glucose [Mass/Vol] 180 mg/dL Normal [facility] Comment on above: Result Comment: [place] om Glucose Reference Range is dependent on time and content of last meal. Glucose of more than 200 mg/dL in a nonstressed, ambulatory subject supports the diagnosis of Diabetes Mellitus.PERFORMED BY:[address] [place], [place] [phone] MEDICAL DIRECTORJOSEPH GARCIA M.D. Performed By: #### G LUANURAG ####Point of Care testing, Scan and CBCon 07-12-2023 Acanthocytes Slight Normal [facility] Comment on above: Performed By: #### S CAN CBC, BMP ####[address] Anisocytosis Ql (Bld) Slight Normal [facility] Comment on above: Performed By: #### S CAN CBC, BMP ####[address] Basophils (Bld) [#/Vol] 0.1 10*3/uL Normal 0.0-0.2 [facility] Comment on above: Performed By: #### S CAN CBC, BMP ####[place] [id number] [facility] Basophils/100 WBC (Bld) 0.3 % Normal . [facility] Comment on above: Performed By: #### S CAN CBC, BMP ####[address] Eosinophils (Bld) [#/Vol] 0.2 10*3/uL Normal 0.0-0.45 [facility] Comment on above: Performed By: #### S CAN CBC, BMP ####[place] [id number] [facility] Eosinophils/100 WBC (Bld) 0.7 % Normal . [facility] Comment on above: Performed By: #### S CAN CBC, BMP ####[address] Erythrocyte distribution width (RBC) [Ratio] 13.5 % Normal 12.0-14.8 [facility] Comment on above: Performed By: #### S CAN CBC, BMP ####[address] Hematocrit (Bld) [Volume fraction] 30.1 % Low 38.8-50.0 [facility] Comment on above: Performed By: #### S CAN CBC, BMP ####[address] Hemoglobin (Bld) [Mass/Vol] 10.1 g/dL Low 13.0-17.0 [facility] Comment on above: Performed By: #### S CAN CBC, BMP ####[address] Lymphocytes (Bld) [#/Vol] 1.4 10*3/uL Normal 1.00-4.8 [facility] Comment on above: Performed By: #### S CAN CBC, BMP ####[address] Lymphocytes/100 WBC (Bld) 5.3 % Normal . [facility] Comment on above: Performed By: #### S CAN CBC, BMP ####[address] MCH (RBC) [Entitic mass] 29.8 pg Normal 27.5-35.2 [facility] Comment on above: Performed By: #### S CAN CBC, BMP ####[address] MCV (RBC) [Entitic vol] 88.5 fL Normal 83.5-101 [facility] Comment on above: Performed By: #### S CAN CBC, BMP ####[address] Mean Corpuscular HGB Conc 33.6 g/dL Normal 32.5-35.6 [facility] Comment on above: Performed By: #### S CAN CBC, BMP ####[address] Microcytosis Slight Normal [facility] Comment on above: Performed By: #### S CAN CBC, BMP ####[place] [address] [place] [address] [facility] Monocytes (Bld) [#/Vol] 2.6 10*3/uL High 0.0-0.8 [facility] Comment on above: Performed By: #### S CAN CBC, BMP ####[address] [address] [facility] Monocytes/100 WBC (Bld) 9.6 % Normal . [facility] Comment on above: Performed By: #### S CAN CBC, BMP ####[address] [address] [facility] Neutrophils (Bld) [#/Vol] 22.9 10*3/uL High 1.8-7.7 [facility] Comment on above: Performed By: #### S CAN CBC, BMP ####[address] [address] [facility] Neutrophils/100 WBC (Bld) 84.1 % Normal . [facility] Comment on above: Performed By: #### S CAN CBC, BMP ####[address] [address] [facility] NRBC% 0.0 /100{WBC} Normal 0-0.5 [facility] Comment on above: Performed By: #### S CAN CBC, BMP ####[address] [address] [facility] Platelet Estimate Normal Normal Normal [facility] Comment on above: Performed By: #### S CAN CBC, BMP ####[address] [address] [facility] Platelet mean volume (Bld) [Entitic vol] 7.7 fL Normal 6.6-10.1 [facility] Comment on above: Performed By: #### S CAN CBC, BMP ####[address] [address] [facility] Platelet Morphology Normal Normal Normal [facility] Comment on above: Result Comment: PERF ORMED BY:[address] [place], [place] [phone] MEDICAL DIRECTORJOSEPH GARCIA M.D. Performed By: #### S CAN CBC, BMP ####[place] [address] [place] [id number] [facility] Platelets (Bld) [#/Vol] 451 10*3/uL High 150-450 [facility] Comment on above: Performed By: #### S CAN CBC, BMP ####[place] [address] [place] [id number] [facility] Poikilocytosis Slight Normal [facility] Comment on above: Performed By: #### S CAN CBC, BMP ####[place] [address] RBC (Bld) [#/Vol] 3.40 10*6/uL Low 3.90-5.60 [facility] Comment on above: Performed By: #### S CAN CBC, BMP ####[place] [id number] [facility] WBC (Bld) [#/Vol] 27.3 10*3/uL High 4.1-10.5 [facility] Comment on above: Performed By: #### S CAN CBC, BMP ####[place] [id number] [facility] A1C with Estimated Average G luon 07-11-2023 Glucose [Mass/Vol] 186 mg/dL Normal [facility] Comment on above: Result Comment: PERF ORMED BY:[place] [address] [address] [place], [place] [phone] MEDICAL DIRECTORJOSEPH GARCIA M.D. Performed By: #### B MP, A1C WTH eA, DIFF CBC, MG ####[place] [id number] [facility] Activated partial thrombopla stin time (aPTT) in platelet poor plasma by coagulation aOrdered By: Jesica Juan on 07-11-2023 aPTT Coag (PPP) [Time] 28.7 s 25.1-36.5 [facility] Comment on above: A hematocrit value g reater than 55% may lead to inaccurate results in coagulation testing. Patients having hematocrit values >55% require a special collection tube for coagulation studies. Please contact the laboratory at [phone] for redraw instructions. Aerobic Cultureon 07-11-2023 Aerobic Culture Normal [facility] Comment on above: Performed By: #### A ERC, GS ####[place] [id number] [facility] Basic Metabolic Panelon 06-26 Anion gap [Moles/Vol] 11.6 mmol/L Normal 6.0-15.0 [facility] Comment on above: Performed By: #### B MP, A1C WTH eA, DIFF CBC, MG ####[place] [id number] [facility] Calcium [Mass/Vol] 7.4 mg/dL Significant change down 8.6-10.3 [facility] Comment on above: Performed By: #### B MP, A1C WTH eA, DIFF CBC, MG ####[place] [id number] [facility] Chloride [Moles/Vol] 102 mmol/L Normal 98-107 [facility] Comment on above: Performed By: #### B MP, A1C WTH eA, DIFF CBC, MG ####[place] [id number] [facility] CO2 [Moles/Vol] 22.0 mmol/L Normal 21.0-31.0 [facility] Comment on above: Performed By: #### B MP, A1C WTH eA, DIFF CBC, MG ####[place] [id number] [facility] Creatinine [Mass/Vol] 1.07 mg/dL Normal 0.70-1.30 [facility] Comment on above: Performed By: #### B MP, A1C WTH eA, DIFF CBC, MG ####[address] [address] [facility] Creatinine Clr Calc Pharmacy 69.79 Normal [facility] Comment on above: Performed By: #### B MP, A1C WTH eA, DIFF CBC, MG ####[facility] [place] [id number] [facility] GFR/1.73 sq M.predicted MDRD (S/P/Bld) [Vol rate/Area] mL/min/{1.73_m2} Normal [facility] Comment on above: Performed By: #### B MP, A1C WTH eA, DIFF CBC, MG ####[place] [address] [place] [id number] [facility] Glucose [Mass/Vol] 206 mg/dL Significant change up 70-100 [facility] Comment on above: Result Comment: [facility][note 3] Glucose Reference Range is dependent on time and content of last meal. Glucose of more than 200 mg/dL in a nonstressed, ambulatory subject supports the diagnosis of Diabetes Mellitus. ADA recommended reference range Performed By: #### B MP, A1C WTH eA, DIFF CBC, MG ####[place] [address] Potassium [Moles/Vol] 3.6 mmol/L Normal 3.5-5.1 [facility] Comment on above: Performed By: #### B MP, A1C WTH eA, DIFF CBC, MG ####[address] Sodium [Moles/Vol] 132 mmol/L Low 136-145 [facility] Comment on above: Performed By: #### B MP, A1C WTH eA, DIFF CBC, MG ####[place] [id number] [facility] Urea nitrogen [Mass/Vol] 25 mg/dL Normal 7-25 [facility] Comment on above: Performed By: #### B MP, A1C WTH eA, DIFF CBC, MG ####[place] [id number] [facility] Diff and CBCon 07-11-2023 Acanthocytes Slight Normal [facility] Comment on above: Performed By: #### B MP, A1C WTH eA, DIFF CBC, MG ####[place] [id number] [facility] Anisocytosis Ql (Bld) Slight Normal [facility] Comment on above: Performed By: #### B MP, A1C WTH eA, DIFF CBC, MG ####[address] Band form neutrophils/100 WBC (Bld) 3 % Normal 0-5 [facility] Comment on above: Performed By: #### B MP, A1C WTH eA, DIFF CBC, MG ####[place] [id number] [facility] Eosinophils/100 WBC (Bld) 1 % Normal 1-3 [facility] Comment on above: Performed By: #### B MP, A1C WTH eA, DIFF CBC, MG ####[address] Erythrocyte distribution width (RBC) [Ratio] 13.3 % Normal 12.0-14.8 [facility] Comment on above: Performed By: #### B MP, A1C WTH eA, DIFF CBC, MG ####[address] Hematocrit (Bld) [Volume fraction] 30.9 % Low 38.8-50.0 [facility] Comment on above: Performed By: #### B MP, A1C WTH eA, DIFF CBC, MG ####[address] Hemoglobin (Bld) [Mass/Vol] 10.3 g/dL Low 13.0-17.0 [facility] Comment on above: Performed By: #### B MP, A1C WTH eA, DIFF CBC, MG ####[place] [id number] [facility] Lymphocytes/100 WBC (Bld) 6 % Low 18-42 [facility] Comment on above: Performed By: #### B MP, A1C WTH eA, DIFF CBC, MG ####[place] [id number] [facility] MCH (RBC) [Entitic mass] 29.6 pg Normal 27.5-35.2 [facility] Comment on above: Performed By: #### B MP, A1C WTH eA, DIFF CBC, MG ####[address] [place] [address] [facility] MCV (RBC) [Entitic vol] 88.9 fL Normal 83.5-101 [facility] Comment on above: Performed By: #### B MP, A1C WTH eA, DIFF CBC, MG ####[address] [address] [facility] Mean Corpuscular HGB Conc 33.3 g/dL Normal 32.5-35.6 [facility] Comment on above: Performed By: #### B MP, A1C WTH eA, DIFF CBC, MG ####[address] [address] [facility] Metamyelocytes 2 % High 0-0 [facility] Comment on above: Performed By: #### B MP, A1C WTH eA, DIFF CBC, MG ####[address] [address] [facility] Microcytosis Moderate Normal [facility] Comment on above: Performed By: #### B MP, A1C WTH eA, DIFF CBC, MG ####[place] [id number] [facility] Monocytes/100 WBC (Bld) 3 % Normal 2-11 [facility] Comment on above: Performed By: #### B MP, A1C WTH eA, DIFF CBC, MG ####[address] [address] [facility] Platelet Estimate Normal Normal Normal [facility] Comment on above: Performed By: #### B MP, A1C WTH eA, DIFF CBC, MG ####[address] [address] [facility] Platelet mean volume (Bld) [Entitic vol] 7.7 fL Normal 6.6-10.1 [facility] Comment on above: Performed By: #### B MP, A1C WTH eA, DIFF CBC, MG ####[address] [address] [facility] Platelet Morphology Normal Normal Normal [facility] Comment on above: Result Comment: PERF ORMED BY:[address] [place], [place] [id number] MEDICAL SILVIA GARCIA M.D. Performed By: #### B MP, A1C WTH eA, DIFF CBC, MG ####[facility] [place] [address] [facility] Platelets (Bld) [#/Vol] 408 10*3/uL Normal 150-450 [facility] Comment on above: Performed By: #### B MP, A1C WTH eA, DIFF CBC, MG ####[address] [place] [address] [facility] Polychromasia Slight Normal [facility] Comment on above: Performed By: #### B MP, A1C WTH eA, DIFF CBC, MG ####[address] [place] [address] [facility] RBC (Bld) [#/Vol] 3.47 10*6/uL Low 3.90-5.60 [facility] Comment on above: Performed By: #### B MP, A1C WTH eA, DIFF CBC, MG ####[address] [address] [facility] Segmented neutrophils/100 WBC (Bld) 86 % High 50-70 [facility] Comment on above: Performed By: #### B MP, A1C WTH eA, DIFF CBC, MG ####[address] [address] [facility] WBC (Bld) [#/Vol] 30.0 10*3/uL High 4.1-10.5 [facility] Comment on above: Performed By: #### B MP, A1C WTH eA, DIFF CBC, MG ####[address] [address] [facility] ECG 12 lead ECGon 07-11-2023 ECG 12 lead ECG Normal [facility] Glucose Poct Glucometerson 0 07-11-2023 Glucose [Mass/Vol] 197 mg/dL Normal [facility] Comment on above: Result Comment: [place] Glucose Reference Range is dependent on time and content of last meal. Glucose of more than 200 mg/dL in a nonstressed, ambulatory subject supports the diagnosis of Diabetes Mellitus.PERFORMED BY:[place] [address] [address] [place], [place] [phone] MEDICAL SILVIA GARCIA M.D. Performed By: #### G LULS ####Point of Care testing, Commemt1 Glu2: Cleaned Meter Normal [facility] Comment on above: Result Comment: PERF ORMED BY:[place] [address], [place] [phone] MEDICAL DIRECTORJOSEPH GARCIA M.D. Performed By: #### G LULS ####Point of Care testing, Glucose [Mass/Vol] 159 mg/dL Normal [facility] Comment on above: Result Comment: [place] om Glucose Reference Range is dependent on time and content of last meal. Glucose of more than 200 mg/dL in a nonstressed, ambulatory subject supports the diagnosis of Diabetes Mellitus. Performed By: #### G LULS ####Point of Care testing, Commemt1 Glu2: Cleaned Meter Normal [facility] Comment on above: Result Comment: PERF ORMED BY:[place] [address] [place], [place] [phone] MEDICAL SILVIA GARCIA M.D. Performed By: #### G LULS ####Point of Care testing, Glucose [Mass/Vol] 172 mg/dL Normal [facility] Comment on above: Result Comment: [place] om Glucose Reference Range is dependent on time and content of last meal. Glucose of more than 200 mg/dL in a nonstressed, ambulatory subject supports the diagnosis of Diabetes Mellitus. Performed By: #### G LULS ####Point of Care testing, Commemt1 Glu2: Cleaned Meter Normal [facility] Comment on above: Result Comment: PERF ORMED BY:[place] [address], [place] [phone] MEDICAL SILVIA GARCIA M.D. Performed By: #### G LULS ####Point of Care testing, Glucose [Mass/Vol] 172 mg/dL Normal [facility] Comment on above: Result Comment: [place] Glucose Reference Range is dependent on time [...] from glycated hemoglobin (Bld) [Mass/Vol] 186 mg/dL [facility] Gram Stainon 07-11-2023 Microscopic observation Gram stain Nom (Unsp spec) Comment deep wound culture left foot Gram Stain Result 1+ Gram Positive Cocci 2+ White Blood Cells PERFORMED BY: [place] [address] PATHOLOGIST MARKETING SALES SUPERVISOR JOSEPH GARCIA M.D. Normal [facility] Comment on above: Performed By: #### A ERC, GS ####[place] [id number] [facility] Microscopic observation Gram stain Nom (Unsp spec) Comment 5th metatarsal bone culture Gram Stain Result 2+ White Blood Cells No Bacteria Seen PERFORMED BY: [place] [address] PATHOLOGIST MARKETING SALES SUPERVISOR JOSEPH GARCIA M.D. Normal [facility] Comment on above: Performed By: #### A ERC, GS ####[place] [id number] [facility] Gram stain for investigation of transfusion reactionOrdered By: Rohan Han on 07-11-2023 Microscopic observation Gram stain Nom (Unsp spec) Anaerococcus vaginalis [facility] Microscopic observation Gram stain Nom (Unsp spec) Staphylococcus aureus [facility] Hemoglobin A1c percentageOrd ered By: Jesica Juan on 07-11-2023 HbA1c (Bld) [Mass fraction] 8.1 % High 4.3-5.6 [facility] Comment on above: Increased risk for d iabetes: 5.7 - 6.4diabetes: >6.4glycemic control for adults with diabetes: <7.0 Result Comment: Incr eased risk for diabetes: 5.7 - 6.4 diabetes: >6.4 glycemic control for adults with diabetes: <7.0 Performed By: #### B MP, A1C WTH eA, DIFF CBC, MG ####[facility] [place] [address] [facility] INR in Platelet poor plasma by Coagulation assayOrdered By: Jesica Juan on 07-11-2023 INR Coag (PPP) [Relative time] 1.1 {INR} Normal [facility] Comment on above: INR Therapeutic Rang [...] with mechanical heart valves: 3 - 4.5 Result Comment: INR Therapeutic Range A) Pre- [...] 4.5 Performed By: #### P TT, PT ####[facility] [place] [address] [facility] Neil 07-11-2023 L Normal [facility] MR foot LT wo conon 07-11-19 24 MR foot LT wo con Normal [facility] Magnesium [Mass/volume] in S rene or PlasmaOrdered By: Jesica Juan on 07-11-2023 Magnesium [Mass/Vol] 1.7 mg/dL Low 1.9-2.7 [facility] Comment on above: Result Comment: PERF ORMED BY:[address] [place], [place] [phone] MEDICAL SILVIA GARCIA M.D. Performed By: #### B MP, A1C WTH eA, DIFF CBC, MG ####[facility] [place] [address] [facility] Microscopic observation Gram stain Nom (Unsp spec)Ordered By: Rohan Han on 07-11-2023 Gram stain for investigation of transfusion reaction Anaerococcus vaginalis [facility] Gram stain for investigation of transfusion reaction Staphylococcus aureus [facility] Partial Thromboplastin Timeo n 07-11-2023 aPTT Coag (Bld) [Time] 28.7 s Normal 25.1-36.5 [facility] Comment on above: Result Comment: A he matocrit value greater than 55% may lead to inaccurate results in coagulation testing. Patients having hematocrit values >55% require a special collection tube for coagulation studies. Please contact the laboratory at [phone] for redraw instructions.PERFORMED BY:[address] [place], [place] [phone] MEDICAL DIRECTORJOSEPH GARCIA M.D. Performed By: #### P TT, PT ####[address] [place] [address] [facility] Prothrombin time (PT)Ordered By: Jesica Juan on 07-11-2023 PT Coag (PPP) [Time] 12.7 s Normal 9.0-12.9 [facility] Comment on above: A hematocrit value g reater than 55% may lead to inaccurate results in coagulation testing. Patients having hematocrit values >55% require a special collection tube for coagulation studies. Please contact the laboratory at [phone] for redraw instructions. Result Comment: A he matocrit value greater than 55% may lead to inaccurate results in coagulation testing. Patients having hematocrit values >55% require a special collection tube for coagulation studies. Please contact the laboratory at [phone] for redraw instructions. Performed By: #### P TT, PT ####[address] [place] [address] [facility] US arterial pvr rest Kerry US arterial pvr rest LE Normal [facility] XR foot LT 2Von 07-11-2023 XR foot LT 2V Normal [facility] Automated basophil %Ordered By: Brittney Hudson on 07-10-2023 Basophils/100 WBC (Bld) 0.1 % Normal . [facility] Comment on above: Performed By: #### B MP, CRP, SCAN CBC, LACTIC, MG, CUBLD ####[address] Automated basophil countOrde red By: Brittney Hudson on 07-10-2023 Basophils (Bld) [#/Vol] 0.0 10*3/uL Normal 0.0-0.2 [facility] Comment on above: Performed By: #### B MP, CRP, SCAN CBC, LACTIC, MG, CUBLD ####[address] Automated blood monocyte cou ntOrdered By: Brittney Hudson on 07-10-2023 Monocytes (Bld) [#/Vol] 2.7 10*3/uL High 0.0-0.8 [facility] Comment on above: Performed By: #### B MP, CRP, SCAN CBC, LACTIC, MG, CUBLD ####[address] Automated eosinophil %Ordere d By: Brittney Hudson on 07-10-2023 Eosinophils/100 WBC (Bld) 0.3 % Normal . [facility] Comment on above: Performed By: #### B MP, CRP, SCAN CBC, LACTIC, MG, CUBLD ####[address] Automated eosinophil countOr dered By: Brittney Hudson on 07-10-2023 Eosinophils (Bld) [#/Vol] 0.1 10*3/uL Normal 0.0-0.45 [facility] Comment on above: Performed By: #### B MP, CRP, SCAN CBC, LACTIC, MG, CUBLD ####[address] Automated monocyte %Ordered By: Brittney Hudosn on 07-10-2023 Monocytes/100 WBC (Bld) 8.4 % Normal . [facility] Comment on above: Performed By: #### B MP, CRP, SCAN CBC, LACTIC, MG, CUBLD ####[address] [place] [address] [facility] Automated neutrophil %Ordere d By: Brittney Hudson on 07-10-2023 Neutrophils/100 WBC (Bld) 84.7 % Normal . [facility] Comment on above: Performed By: #### B MP, CRP, SCAN CBC, LACTIC, MG, CUBLD ####[place] [id number] [facility] Bacteria identified Aer cx N om (Unsp spec)Ordered By: Brittney Hudson on 07-10-2023 Superficial Wound Culture Staphylococcus aureus [facility] Aerobic culture Staphylococcus aureus [facility] Bacterial blood cultureOrder ed By: Brittney Hudson on 07-10-2023 Bacteria identified Cx Nom (Bld) NO GROWTH 5 DAYS [facility] Bacteria identified Cx Nom (Bld) NO GROWTH 5 DAYS [facility] Bacteria identified Cx Nom (Bld) NO GROWTH 5 DAYS [facility] Bacteria identified Cx Nom (Bld) NO GROWTH 5 DAYS [facility] Basic Metabolic Panelon 06-26 Creatinine Clr Calc Pharmacy 59.59 Normal [facility] Comment on above: Result Comment: PERF ORMED BY:[address] [place], [place] [phone] MEDICAL DIRECTORJOSEPH GARCIA M.D. Performed By: #### B MP, CRP, SCAN CBC, LACTIC, MG, CUBLD ####[place] [id number] [facility] GFR/1.73 sq M.predicted MDRD (S/P/Bld) [Vol rate/Area] mL/min/{1.73_m2} Normal [facility] Comment on above: Performed By: #### B MP, CRP, SCAN CBC, LACTIC, MG, CUBLD ####[address] [place] [id number] [facility] Blood Cultureon 07-10-2023 Bacteria identified Cx Nom (Bld) NO GROWTH 5 DAYS PERFORMED BY: [facility] [address] [place] [address] PATHOLOGIST MARKETING SALES SUPERVISOR JOSEPH GARCIA M.D. Normal [facility] Comment on above: Performed By: #### C UBLD ####[address] [address] [facility] Bacteria identified Cx Nom (Bld) NO GROWTH 5 DAYS PERFORMED BY: [facility] [address] [place] [address] PATHOLOGIST MARKETING SALES SUPERVISOR JOSEPH GARCIA M.D. Normal [facility] Comment on above: Performed By: #### B MP, CRP, SCAN CBC, LACTIC, MG, CUBLD ####[address] [address] [facility] C reactive protein [Mass/vol ume] in Serum or PlasmaOrdered By: Brittney Hudson on 07-10-2023 CRP [Mass/Vol] 28.5 mg/dL 0.0-0.5 [facility] C-Reactive Proteinon 024 C-Reactive Protein 28.5 mg/dL High 0.0-0.5 [facility] Comment on above: Result Comment: PERF ORMED BY:[address] [place], [place] [phone] MEDICAL DIRECTORJOSEPH GARCIA M.D. Performed By: #### B MP, CRP, SCAN CBC, LACTIC, MG, CUBLD ####[address] [address] [facility] Calcium [Mass/volume] in Ser um or PlasmaOrdered By: Brittney Hudson on 07-10-2023 Calcium [Mass/Vol] 9.1 mg/dL Normal 8.6-10.3 [facility] Comment on above: Performed By: #### B MP, CRP, SCAN CBC, LACTIC, MG, CUBLD ####[address] [address] [facility] Capillary blood glucose nic urement by glucometer (mass/volume)Ordered By: Arnaldo Thomas on 07-10-2023 Glucose [Mass/Vol] 188 mg/dL Normal [facility] Comment on above: Random Glucose Refer ence Range is dependent on time and content of last meal. Glucose of more than 200 mg/dL in a nonstressed, ambulatory subject supports the diagnosis of Diabetes Mellitus. Result Comment: [place] Glucose Reference Range is dependent on time and content of last meal. Glucose of more than 200 mg/dL in a nonstressed, ambulatory subject supports the diagnosis of Diabetes Mellitus. Performed By: #### G LUANURAG ####Point of Care testing, Carbon dioxide, total [Moles /volume] in Serum or PlasmaOrdered By: Brittney Hudson on 07-10-2023 CO2 [Moles/Vol] 25.5 mmol/L Normal 21.0-31.0 [facility] Comment on above: Performed By: #### B MP, CRP, SCAN CBC, LACTIC, MG, CUBLD ####[address] [place] [address] [facility] Chloride [Moles/volume] in S rene or PlasmaOrdered By: Brittney Hudson on 07-10-2023 Chloride [Moles/Vol] 98 mmol/L Normal 98-107 [facility] Comment on above: Performed By: #### B MP, CRP, SCAN CBC, LACTIC, MG, CUBLD ####[address] [address] [facility] Creatinine [Mass/volume] in Serum or PlasmaOrdered By: Brittney Hudson on 07-10-2023 Creatinine [Mass/Vol] 1.23 mg/dL Normal 0.70-1.30 [facility] Comment on above: Performed By: #### B MP, CRP, SCAN CBC, LACTIC, MG, CUBLD ####[address] [address] [facility] ECG 12 lead ECGon 07-10-2023 ECG 12 lead ECG Normal [facility] Erythrocyte Sedimentation Ra salma 07-10-2023 ESR (Bld) [Velocity] 62 mm/h High 0-19 [facility] Comment on above: Order Comment: Comme nt add on Result Comment: PERF ORMED BY:[address], [place] [phone] MEDICAL DIRECTORJOSEPH GARCIA M.D. Performed By: #### E SR ####[address] [address] [facility] Erythrocyte distribution wid th [Ratio] by Automated countOrdered By: Brittney Hudson on 07-10-2023 Erythrocyte distribution width (RBC) [Ratio] 13.7 % Normal 12.0-14.8 [facility] Comment on above: Performed By: #### B MP, CRP, SCAN CBC, LACTIC, MG, CUBLD ####[address] [place] [address] [facility] Erythrocyte sedimentation ra te by Photometric methodOrdered By: Jesica Juan on 07-10-2023 ESR Photometric method (Bld) [Velocity] 62 mm/hr 0-19 [facility] Erythrocytes [#/volume] in B lood by Automated countOrdered By: Brittney Hudson on 07-10-2023 RBC (Bld) [#/Vol] 3.98 10*6/uL Normal 3.90-5.60 [facility] Comment on above: Performed By: #### B MP, CRP, SCAN CBC, LACTIC, MG, CUBLD ####[place] [id number] [facility] Glucose Poct Glucometerson 0 07-10-2023 Commemt1 Glu2: Cleaned Meter Normal [facility] Comment on above: Result Comment: PERF ORMED BY:[address], [place] [phone] MEDICAL DIRECTORJOSEPH GARCIA M.D. Performed By: #### G LULS ####Point of Care testing, Glucose [Mass/volume] in Ser um or PlasmaOrdered By: Brittney Hudson on 07-10-2023 Glucose [Mass/Vol] 57 mg/dL Low 70-100 [facility] Comment on above: ADA recommended refe rence rangeRandom Glucose Reference Range is dependent on time and content of last meal. Glucose of more than 200 mg/dL in a nonstressed, ambulatory subject supports the diagnosis of Diabetes Mellitus. Result Comment: [facility][note 3] Glucose Reference Range is dependent on time and content of last meal. Glucose of more than 200 mg/dL in a nonstressed, ambulatory subject supports the diagnosis of Diabetes Mellitus. ADA recommended reference range Performed By: #### B MP, CRP, SCAN CBC, LACTIC, MG, CUBLD ####[address] [place] [address] [facility] Hematocrit [Volume Fraction] of Blood by Automated countOrdered By: Brittney Hudson on 07-10-2023 Hematocrit (Bld) [Volume fraction] 35.3 % Low 38.8-50.0 [facility] Comment on above: Performed By: #### B MP, CRP, SCAN CBC, LACTIC, MG, CUBLD ####[address] [place] [address] [facility] Hemoglobin [Mass/volume] in BloodOrdered By: Brittney Hudson on 07-10-2023 Hemoglobin (Bld) [Mass/Vol] 11.9 g/dL Low 13.0-17.0 [facility] Comment on above: Performed By: #### B MP, CRP, SCAN CBC, LACTIC, MG, CUBLD ####[address] [address] [facility] Lactate [Moles/volume] in Se rum or PlasmaOrdered By: Brittney Hudson on 07-10-2023 Lactate [Moles/Vol] 1.2 mmol/L 0.5-2.2 [facility] Lactic Acidon 07-10-2023 Lactate [Moles/Vol] 3.3 mmol/L Off scale high 0.5-2.2 [facility] Comment on above: Result Comment: Crit ical Result : Called to and read back by: GILA RIBEIRO at: 07/10/2023 19:52:18 by:DCPERFORMED BY:[address] [place], [place] [phone] MEDICAL DIRECTORJOSEPH GARCIA M.D. Performed By: #### B MP, CRP, SCAN CBC, LACTIC, MG, CUBLD ####[address] [address] [id number] [facility] Lactic Acid Reflexon 024 Lactic Acid Reflex 1.2 mmol/L Normal 0.5-2.2 [facility] Comment on above: Result Comment: PERF ORMED BY:[address] [place], [place] [phone] MEDICAL DIRECTORJOSEPH GARCIA M.D. Performed By: #### L ACTIC RFX ####[place] [id number] [facility] Leukocytes [#/volume] correc jewel for nucleated erythrocytes in Blood by Automated counOrdered By: Brittney Hudson on 07-10-2023 WBC corrected for nucl RBC Auto (Bld) [#/Vol] 32.8 10*3/uL 4.1-10.5 [facility] Leukocytes [#/volume] in Blo od by Automated countOrdered By: Brittney Hudson on 07-10-2023 WBC (Bld) [#/Vol] 32.8 10*3/uL High 4.1-10.5 [facility] Comment on above: Performed By: #### B MP, CRP, SCAN CBC, LACTIC, MG, CUBLD ####[place] [id number] [facility] Lymphocytes [#/volume] in Bl ood by Automated countOrdered By: Brittney Hudson on 07-10-2023 Lymphocytes (Bld) [#/Vol] 2.1 10*3/uL Normal 1.00-4.8 [facility] Comment on above: Performed By: #### B MP, CRP, SCAN CBC, LACTIC, MG, CUBLD ####[place] [id number] [facility] Lymphocytes/100 leukocytes i n Blood by Automated countOrdered By: Brittney Hudson on 07-10-2023 Lymphocytes/100 WBC (Bld) 6.5 % Normal . [facility] Comment on above: Performed By: #### B MP, CRP, SCAN CBC, LACTIC, MG, CUBLD ####[place] [id number] [place] MCH [Entitic mass] by Automa jewel countOrdered By: Brittney Hudson on 07-10-2023 MCH (RBC) [Entitic mass] 29.8 pg Normal 27.5-35.2 [facility] Comment on above: Performed By: #### B MP, CRP, SCAN CBC, LACTIC, MG, CUBLD ####[address] MCHC Auto (RBC) [Mass/Vol]Or dered By: Brittney Hudson on 07-10-2023 MCHC (RBC) [Mass/Vol] 33.6 g/dL 32.5-35.6 [facility] MCV [Entitic volume] by Auto mated countOrdered By: Brittney Hudson on 07-10-2023 MCV (RBC) [Entitic vol] 88.6 fL Normal 83.5-101 [facility] Comment on above: Performed By: #### B MP, CRP, SCAN CBC, LACTIC, MG, CUBLD ####[address] Magnesium [Mass/volume] in S rene or PlasmaOrdered By: Brittney Hudson on 07-10-2023 Magnesium [Mass/Vol] 1.9 mg/dL Normal 1.9-2.7 [facility] Comment on above: Performed By: #### B MP, CRP, SCAN CBC, LACTIC, MG, CUBLD ####[address] Monocyte distribution width [Entitic volume] in Blood by AutomatedOrdered By: Brittney Hudson on 07-10-2023 Monocyte distribution width Auto (Bld) [Entitic vol] 22.38 % 0.00-20.00 [facility] Comment on above: For adults in ED, MD W > 20.0 may be associated with a higher risk of sepsis during the first 12 hrs of hospital admission Neutrophils [#/volume] in Bl ood by Automated countOrdered By: Brittney Hudson on 07-10-2023 Neutrophils (Bld) [#/Vol] 27.7 10*3/uL High 1.8-7.7 [facility] Comment on above: Performed By: #### B MP, CRP, SCAN CBC, LACTIC, MG, CUBLD ####[facility] [id number] No Panel InformationOrdered By: Arnaldo Thomas on 07-10-2023 Bedside Glucose Comment Glu2: cleaned meter [facility] No Panel InformationOrdered By: Brittney Hudson on 07-10-2023 Estimated GFR (CKD-EPI) > 60.0 mL/Min [facility] Creatinine Clearance (Chem 59.59 [facility] Nucleated erythrocytes [Pres ence] in Blood by Automated countOrdered By: Brittney Hudson on 07-10-2023 Nucleated RBC Auto Ql (Bld) 0.0 /100{WBC} 0-0.5 [facility] Platelet adequacy [Presence] in Blood by Light microscopyOrdered By: Brittney Hudson on 07-10-2023 Platelets LM Ql (Bld) Increased Normal [facility] Platelet mean volume [Entiti c volume] in Blood by Automated countOrdered By: Brittney Hudson on 07-10-2023 Platelet mean volume (Bld) [Entitic vol] 7.7 fL Normal 6.6-10.1 [facility] Comment on above: Performed By: #### B MP, CRP, SCAN CBC, LACTIC, MG, CUBLD ####[facility] [id number] Platelet morphology finding [Identifier] in BloodOrdered By: Brittney Hudson on 07-10-2023 Platelet morphology finding Nom (Bld) N/A [facility] Platelets Large [Presence] i n Blood by Light microscopyOrdered By: Brittney Hudson on 07-10-2023 Platelets Large LM Ql (Bld) Slight [facility] Platelets [#/volume] in Bloo d by Automated countOrdered By: Brittney Hudson on 07-10-2023 Platelets (Bld) [#/Vol] 502 10*3/uL High 150-450 [facility] Comment on above: Performed By: #### B MP, CRP, SCAN CBC, LACTIC, MG, CUBLD ####[place] [id number] [facility] Potassium [Moles/volume] in Serum or PlasmaOrdered By: Brittney Hudson on 07-10-2023 Potassium [Moles/Vol] 3.3 mmol/L Low 3.5-5.1 [facility] Comment on above: Performed By: #### B MP, CRP, SCAN CBC, LACTIC, MG, CUBLD ####[place] [id number] [facility] RBC morphologyOrdered By: Elizabeth Hudson on 07-10-2023 RBC morphology finding Nom (Bld) Normal Normal Normal [facility] Comment on above: Performed By: #### B MP, CRP, SCAN CBC, LACTIC, MG, CUBLD ####[address] Scan and CBCon 07-10-2023 Large Platelets Slight Normal [facility] Comment on above: Result Comment: PERF ORMED BY:[address] [place], [place] [phone] MEDICAL DIRECTORJOSEPH GARCIA M.D. Performed By: #### B MP, CRP, SCAN CBC, LACTIC, MG, CUBLD ####[place] [id number] [facility] Mean Corpuscular HGB Conc 33.6 g/dL Normal 32.5-35.6 [facility] Comment on above: Performed By: #### B MP, CRP, SCAN CBC, LACTIC, MG, CUBLD ####[place] [id number] [facility] Monocytes/100 WBC (Bld) 22.38 % High 0.00-20.00 [facility] Comment on above: Result Comment: For adults in ED, MDW > 20.0 may be associated with a higher risk of sepsis during the first 12 hrs of hospital admission Performed By: #### B MP, CRP, SCAN CBC, LACTIC, MG, CUBLD ####[place] [id number] [facility] NRBC% 0.0 /100{WBC} Normal 0-0.5 [facility] Comment on above: Performed By: #### B MP, CRP, SCAN CBC, LACTIC, MG, CUBLD ####[place] [address] [place] [id number] [facility] Platelet Estimate Increased Normal Normal [facility] Comment on above: Performed By: #### B MP, CRP, SCAN CBC, LACTIC, MG, CUBLD ####[place] [address] [place] [id number] [facility] Serum or plasma anion gap de terminationOrdered By: Brittney Hudson on 07-10-2023 Anion gap [Moles/Vol] 15.8 mmol/L High 6.0-15.0 [facility] Comment on above: Performed By: #### B MP, CRP, SCAN CBC, LACTIC, MG, CUBLD ####[place] [id number] Sodium [Moles/volume] in Ser um or PlasmaOrdered By: Brittney Hudson on 07-10-2023 Sodium [Moles/Vol] 136 mmol/L Normal 136-145 [facility] Comment on above: Performed By: #### B MP, CRP, SCAN CBC, LACTIC, MG, CUBLD ####[place] [id number] [facility] Superficial Wound Cultureon 07-10-2023 Superficial Wound Culture Normal [facility] Comment on above: Performed By: #### C USUP ####[place] [id number] [facility] Urea nitrogen [Mass/volume] in Serum or PlasmaOrdered By: Brittney Hudson on 07-10-2023 Urea nitrogen [Mass/Vol] 23 mg/dL Normal 7-25 [facility] Comment on above: Performed By: #### B MP, CRP, SCAN CBC, LACTIC, MG, CUBLD ####[place] [id number] [facility] XR foot LT min 3V*on 024 XR foot LT min 3V* Normal [facility] A1C HEMOGLOBINon 06-26-2023 HbA1c (Bld) [Mass fraction] 7.7 % [facility] [employer] Other Glucose - FINGER STICKon Glucose [Mass/Vol] 178 mg/dL [facility] [employer] Other HbA1c (Bld) [Mass fraction]o n 06-26-2023 A1C HEMOGLOBIN [facility] [employer] Other C reactive protein [Mass/vol ume] in Serum or PlasmaOrdered By: Michael Ramírez on 03-31-2023 CRP [Mass/Vol] 8.9 mg/dL 0.0-0.5 [facility] C-Reactive Proteinon 023 C-Reactive Protein 8.9 mg/dL High 0.0-0.5 [facility] Comment on above: Result Comment: PERF ORMED BY:[address] [place], [place] [phone] MEDICAL DIRECTORJOSEPH GARCIA M.D. Performed By: #### C MARCY, CREAT ####[address] [address] [facility] Creatinineon 03-31-2023 GFR/1.73 sq M.predicted MDRD (S/P/Bld) [Vol rate/Area] mL/min/{1.73_m2} Normal [facility] Comment on above: Performed By: #### C MARCY, CREAT ####[place] [id number] [facility] Creatinine [Mass/volume] in Serum or PlasmaOrdered By: Michael Ramírez on 03-31-2023 Creatinine [Mass/Vol] 0.85 mg/dL Normal 0.70-1.30 [facility] Comment on above: Performed By: #### C MARCY, CREAT ####[place] [id number] [facility] No Panel InformationOrdered By: Michael Ramírez on 03-31-2023 Estimated GFR (CKD-EPI) > 60.0 mL/Min [facility] Creatinine Clearance (Chem N/A [facility] MR foot LT wo conon 03-25-20 23 MR foot LT wo con Normal [facility] C reactive protein [Mass/vol ume] in Serum or PlasmaOrdered By: Michael Ramírez on 03-24-2023 CRP [Mass/Vol] 1.6 mg/dL 0.0-0.5 [facility] C-Reactive Proteinon 023 C-Reactive Protein 1.6 mg/dL High 0.0-0.5 [facility] Comment on above: Result Comment: PERF ORMED BY:[address] [place], [place] [phone] MEDICAL DIRECTORJOSEPH GARCIA M.D. Performed By: #### C HONG, CRP ####[place] [address] [place] [id number] [facility] Creatinineon 03-24-2023 GFR/1.73 sq M.predicted MDRD (S/P/Bld) [Vol rate/Area] mL/min/{1.73_m2} Normal [facility] Comment on above: Performed By: #### C HONG, CRP ####[address] Creatinine [Mass/volume] in Serum or PlasmaOrdered By: Michael Ramírez on 03-24-2023 Creatinine [Mass/Vol] 0.85 mg/dL Normal 0.70-1.30 [facility] Comment on above: Performed By: #### C HONG, CRP ####[address] No Panel InformationOrdered By: Michael Ramírez on 03-24-2023 Estimated GFR (CKD-EPI) > 60.0 mL/Min [facility] Creatinine Clearance (Chem N/A [facility] A1C HEMOGLOBINon 03-20-2023 HbA1c (Bld) [Mass fraction] 6.4 % [employer] Other Glucose - FINGER STICKon Glucose [Mass/Vol] 179 mg/dL [employer] Other HbA1c (Bld) [Mass fraction]o n 03-20-2023 A1C HEMOGLOBIN [employer] Other C reactive protein [Mass/vol ume] in Serum or PlasmaOrdered By: Michael Ramírez on 03-17-2023 CRP [Mass/Vol] 1.6 mg/dL 0.0-0.5 [facility] C-Reactive Proteinon 023 C-Reactive Protein 1.6 mg/dL High 0.0-0.5 [facility] Comment on above: Result Comment: PERF ORMED BY:[address] [place], [place] [phone] MEDICAL DIRECTORJOSEPH GARCIA M.D. Performed By: #### C HONG, CRP ####[place] [id number] [place] [id number] [facility] Creatinineon 03-17-2023 GFR/1.73 sq M.predicted MDRD (S/P/Bld) [Vol rate/Area] mL/min/{1.73_m2} Normal [facility] Comment on above: Performed By: #### C HONG, CRP ####[place] [id number] [facility] Creatinine [Mass/volume] in Serum or PlasmaOrdered By: Michael Ramírez on 03-17-2023 Creatinine [Mass/Vol] 1.20 mg/dL Normal 0.70-1.30 [facility] Comment on above: Performed By: #### C HONG, CRP ####[address] No Panel InformationOrdered By: Michael Ramírez on 03-17-2023 Estimated GFR (CKD-EPI) > 60.0 mL/Min [facility] Creatinine Clearance (Chem N/A [facility] C reactive protein [Mass/vol ume] in Serum or PlasmaOrdered By: Micheal Ramírez on 03-10-2023 CRP [Mass/Vol] 0.8 mg/dL 0.0-0.5 [facility] C-Reactive Proteinon 023 C-Reactive Protein 0.8 mg/dL High 0.0-0.5 [facility] Comment on above: Result Comment: PERF ORMED BY:[place] [address] [address] [place], [place] [phone] MEDICAL SILVIA GARCIA M.D. Performed By: #### C RP, CREAT ####[place] [address] [place] [address] [facility] Creatinineon 03-10-2023 GFR/1.73 sq M.predicted MDRD (S/P/Bld) [Vol rate/Area] mL/min/{1.73_m2} Normal [facility] Comment on above: Performed By: #### C RP, CREAT ####[place] [id number] [facility] Creatinine [Mass/volume] in Serum or PlasmaOrdered By: Michael Ramírez on 03-10-2023 Creatinine [Mass/Vol] 1.12 mg/dL Normal 0.70-1.30 [facility] Comment on above: Performed By: #### C RP, CREAT ####[place] [id number] [facility] No Panel InformationOrdered By: Michael Ramírez on 03-10-2023 Estimated GFR (CKD-EPI) > 60.0 mL/Min [facility] Creatinine Clearance (Chem N/A [facility] Capillary blood glucose nic urement by glucometer (mass/volume)Ordered By: Orestes Mejia on 03-04-2023 Glucose [Mass/Vol] 185 mg/dL Normal [facility] Comment on above: Random Glucose Refer ence Range is dependent on time and content of last meal. Glucose of more than 200 mg/dL in a nonstressed, ambulatory subject supports the diagnosis of Diabetes Mellitus. Result Comment: [place] om Glucose Reference Range is dependent on time and content of last meal. Glucose of more than 200 mg/dL in a nonstressed, ambulatory subject supports the diagnosis of Diabetes Mellitus.PERFORMED BY:[place] [address] [address] [place], [place] [phone] MEDICAL DIRECTORJOSEPH GARCIA M.D. Performed By: #### G LULS ####Point of Care testing, Glucose Poct Glucometerson 1 Glucose [Mass/Vol] 121 mg/dL Normal [facility] Comment on above: Result Comment: [facility][note 3] Glucose Reference Range is dependent on time and content of last meal. Glucose of more than 200 mg/dL in a nonstressed, ambulatory subject supports the diagnosis of Diabetes Mellitus.PERFORMED BY:[address] [place], [place] [phone] MEDICAL DIRECTORJOSEPH GARCIA M.D. Performed By: #### G LULS ####Point of Care testing, Glucose [Mass/Vol] 94 mg/dL Normal [facility] Comment on above: Result Comment: [facility][note 3] Glucose Reference Range is dependent on time and content of last meal. Glucose of more than 200 mg/dL in a nonstressed, ambulatory subject supports the diagnosis of Diabetes Mellitus.PERFORMED BY:[address] [place], [place] [phone] MEDICAL DIRECTORJOSEPH GARCIA M.D. Performed By: #### G LUANURAG ####Point of Care testing, Alanine aminotransferase [En zymatic activity/volume] in Serum or PlasmaOrdered By: Eulogio Ruvalcaba on 03-03-2023 ALT [Catalytic activity/Vol] 14 U/L Normal 7-52 [facility] Comment on above: Performed By: #### C BC, CMP ####[facility] [place] [address] [facility] Albumin [Mass/volume] in Ser um or Plasma by Bromocresol green (BCG) dye binding methoOrdered By: Eulogio Ruvalcaba on 03-03-2023 Albumin BCG dye [Mass/Vol] 3.2 g/dL 3.5-5.7 [facility] Alkaline phosphatase [Enzyma tic activity/volume] in Serum or PlasmaOrdered By: Eulogio Ruvalcaba on 03-03-2023 ALP [Catalytic activity/Vol] 62 U/L Normal 34-104 [facility] Comment on above: Performed By: #### C BC, CMP ####[place] [id number] [facility] Aspartate aminotransferase [ Enzymatic activity/volume] in Serum or PlasmaOrdered By: Eulogio Peg on 03-03-2023 AST [Catalytic activity/Vol] 17 U/L Normal 13-39 [facility] Comment on above: Performed By: #### C BC, CMP ####[address] Automated basophil %Ordered By: Eulogio Peg on 03-03-2023 Basophils/100 WBC (Bld) 0.6 % Normal . [facility] Comment on above: Performed By: #### C BC, CMP ####[address] Automated basophil countOrde red By: Eulogio Peg on 03-03-2023 Basophils (Bld) [#/Vol] 0.1 10*3/uL Normal 0.0-0.2 [facility] Comment on above: Result Comment: PERF ORMED BY:[address] [place], [place] [phone] MEDICAL DIRECTORJOSEPH GARCIA M.D. Performed By: #### C BC, CMP ####[address] Automated blood monocyte cou ntOrdered By: Eulogio Peg on 03-03-2023 Monocytes (Bld) [#/Vol] 1.2 10*3/uL High 0.0-0.8 [facility] Comment on above: Performed By: #### C BC, CMP ####[place] [id number] [facility] Automated eosinophil %Ordere d By: Eulogio Peg on 03-03-2023 Eosinophils/100 WBC (Bld) 3.4 % Normal . [facility] Comment on above: Performed By: #### C BC, CMP ####[place] [id number] [facility] Automated eosinophil countOr dered By: Eulogio Ruvalcaba on 03-03-2023 Eosinophils (Bld) [#/Vol] 0.4 10*3/uL Normal 0.0-0.45 [facility] Comment on above: Performed By: #### C BC, CMP ####[place] [id number] [facility] Automated monocyte %Ordered By: Eulogio Peg on 03-03-2023 Monocytes/100 WBC (Bld) 9.4 % Normal . [facility] Comment on above: Performed By: #### C BC, CMP ####[place] [id number] [facility] Automated neutrophil %Ordere d By: Eulogio Peg on 03-03-2023 Neutrophils/100 WBC (Bld) 61.9 % Normal . [facility] Comment on above: Performed By: #### C BC, CMP ####[place] [id number] [facility] Bilirubin.total [Mass/volume ] in Serum or PlasmaOrdered By: Eulogio Ruvalcaba on 03-03-2023 Bilirubin [Mass/Vol] 0.4 mg/dL Normal 0.3-1.0 [facility] Comment on above: Performed By: #### C BC, CMP ####[place] [id number] [facility] C reactive protein [Mass/vol ume] in Serum or PlasmaOrdered By: Michael Ramírez on 03-03-2023 CRP [Mass/Vol] 1.1 mg/dL 0.0-0.5 [facility] C-Reactive Proteinon 023 C-Reactive Protein 1.1 mg/dL High 0.0-0.5 [facility] Comment on above: Result Comment: PERF ORMED BY:[place] [address] [address] [place], [place] [phone] MEDICAL DIRECTORJOSEPH GARCIA M.D. Performed By: #### E SR, CRP ####[place] [id number] [facility] Calcium [Mass/volume] in Ser um or PlasmaOrdered By: Eulogio Ruvalcaba on 03-03-2023 Calcium [Mass/Vol] 8.7 mg/dL Normal 8.6-10.3 [facility] Comment on above: Performed By: #### C BC, CMP ####[address] [address] [facility] Carbon dioxide, total [Moles /volume] in Serum or PlasmaOrdered By: Eulogio Ruvalcaba on 03-03-2023 CO2 [Moles/Vol] 31.2 mmol/L High 21.0-31.0 [facility] Comment on above: Performed By: #### C BC, CMP ####[place] [id number] [facility] Chloride [Moles/volume] in S rene or PlasmaOrdered By: Eulogio Ruvalcaba on 03-03-2023 Chloride [Moles/Vol] 103 mmol/L Normal 98-107 [facility] Comment on above: Performed By: #### C BC, CMP ####[address] [address] [facility] Complete Blood Count Auto Di ffon 03-03-2023 Mean Corpuscular HGB Conc 33.8 g/dL Normal 32.5-35.6 [facility] Comment on above: Performed By: #### C BC, CMP ####[address] [address] [facility] NRBC% 0.1 /100{WBC} Normal 0-0.5 [facility] Comment on above: Performed By: #### C BC, CMP ####[address] [address] [facility] Comprehensive Metabolic Pane neil 03-03-2023 Albumin [Mass/Vol] 3.2 g/dL Low 3.5-5.7 [facility] Comment on above: Performed By: #### C BC, CMP ####[address] [address] [facility] Creatinine Clr Calc Pharmacy 54.47 Normal [facility] Comment on above: Result Comment: PERF ORMED BY:[place] [address] [address] [place], [place] [phone] MEDICAL DIRECTORJOSEPH GARCIA M.D. Performed By: #### C BC, CMP ####[address] [address] [facility] GFR/1.73 sq M.predicted MDRD (S/P/Bld) [Vol rate/Area] 54.671 mL/min/{1.73_m2} Normal [facility] Comment on above: Performed By: #### C BC, CMP ####[address] [address] [facility] Creatinine [Mass/volume] in Serum or PlasmaOrdered By: Eulogio Ruvalcaba on 03-03-2023 Creatinine [Mass/Vol] 1.38 mg/dL High 0.70-1.30 [facility] Comment on above: Performed By: #### C BC, CMP ####[place] [id number] [facility] Erythrocyte Sedimentation Ra salma 03-03-2023 ESR (Bld) [Velocity] 48 mm/h High 0-19 [facility] Comment on above: Result Comment: PERF ORMED BY:[place] [address] [address], [place] [phone] MEDICAL DIRECTORJOSEPH GARCIA M.D. Performed By: #### E SR, CRP ####[place] [id number] [facility] Erythrocyte distribution wid th [Ratio] by Automated countOrdered By: Eulogio Ruvalcaba on 03-03-2023 Erythrocyte distribution width (RBC) [Ratio] 13.7 % Normal 12.0-14.8 [facility] Comment on above: Performed By: #### C BC, CMP ####[place] [id number] [facility] Erythrocyte sedimentation ra te by Photometric methodOrdered By: Michael Ramírez on 03-03-2023 ESR Photometric method (Bld) [Velocity] 48 mm/hr 0-19 [facility] Erythrocytes [#/volume] in B lood by Automated countOrdered By: Eulogio Ruvalcaba on 03-03-2023 RBC (Bld) [#/Vol] 3.46 10*6/uL Low 3.90-5.60 [facility] Comment on above: Performed By: #### C BC, CMP ####[facility] [place] [address] [facility] Glucose Poct Glucometerson 1 Glucose [Mass/Vol] 189 mg/dL Normal [facility] Comment on above: Result Comment: [place] Glucose Reference Range is dependent on time and content of last meal. Glucose of more than 200 mg/dL in a nonstressed, ambulatory subject supports the diagnosis of Diabetes Mellitus.PERFORMED BY:[address] [place], [place] [phone] MEDICAL DIRECTORJOSEPH GARCIA M.D. Performed By: #### G LULS ####Point of Care testing, Glucose [Mass/Vol] 150 mg/dL Normal [facility] Comment on above: Result Comment: [facility][note 3] Glucose Reference Range is dependent on time and content of last meal. Glucose of more than 200 mg/dL in a nonstressed, ambulatory subject supports the diagnosis of Diabetes Mellitus.PERFORMED BY:[address] [place], [place] [phone] MEDICAL DIRECTORJOSEPH GARCIA M.D. Performed By: #### G LULS ####Point of Care testing, Glucose [Mass/Vol] 226 mg/dL Normal [facility] Comment on above: Result Comment: [facility][note 3] Glucose Reference Range is dependent on time and content of last meal. Glucose of more than 200 mg/dL in a nonstressed, ambulatory subject supports the diagnosis of Diabetes Mellitus.PERFORMED BY:[address] [place], [place] [phone] MEDICAL DIRECTORJOSEPH GARCIA M.D. Performed By: #### G LULS ####Point of Care testing, Glucose [Mass/Vol] 96 mg/dL Normal [facility] Comment on above: Result Comment: [place] om Glucose Reference Range is dependent on time and content of last meal. Glucose of more than 200 mg/dL in a nonstressed, ambulatory subject supports the diagnosis of Diabetes Mellitus.PERFORMED BY:[place] [address] [address]Ñ[place] [phone] MEDICAL DIRECTORJOSEPH GARCIA M.D. Performed By: #### G LUANURAG ####Point of Care testing, Glucose [Mass/Vol] 87 mg/dL Normal [facility] Comment on above: Result Comment: [place] om Glucose Reference Range is dependent on time and content of last meal. Glucose of more than 200 mg/dL in a nonstressed, ambulatory subject supports the diagnosis of Diabetes Mellitus.PERFORMED BY:[place] [address] [address] [place], [place] [phone] MEDICAL DIRECTORJOSEPH GARCIA M.D. Performed By: #### G LUANURAG ####Point of Care testing, Glucose [Mass/Vol] 72 mg/dL Normal [facility] Comment on above: Result Comment: [place] om Glucose Reference Range is dependent on time and content of last meal. Glucose of more than 200 mg/dL in a nonstressed, ambulatory subject supports the diagnosis of Diabetes Mellitus.PERFORMED BY:[place] [address] [address] LOYAT[address] [place], [place] [phone] MEDICAL DIRECTORJOSEPH GARCIA M.D. Performed By: #### G LUANURAG ####Point of Care testing, Glucose [Mass/volume] in Ser um or PlasmaOrdered By: Eulogio Ruvalcaba on 03-03-2023 Glucose [Mass/Vol] 82 mg/dL Normal 70-100 [facility] Comment on above: ADA recommended refe rence rangeRandom Glucose Reference Range is dependent on time and content of last meal. Glucose of more than 200 mg/dL in a nonstressed, ambulatory subject supports the diagnosis of Diabetes Mellitus. Result Comment: [place] om Glucose Reference Range is dependent on time and content of last meal. Glucose of more than 200 mg/dL in a nonstressed, ambulatory subject supports the diagnosis of Diabetes Mellitus. ADA recommended reference range Performed By: #### C HIGINIO, CMP ####[address] Hematocrit [Volume Fraction] of Blood by Automated countOrdered By: Eulogio Ruvalcaba on 03-03-2023 Hematocrit (Bld) [Volume fraction] 30.7 % Low 38.8-50.0 [facility] Comment on above: Performed By: #### C HIGINIO, CMP ####[address] Hemoglobin [Mass/volume] in BloodOrdered By: Eulogio Ruvalcaba on 03-03-2023 Hemoglobin (Bld) [Mass/Vol] 10.4 g/dL Low 13.0-17.0 [facility] Comment on above: Performed By: #### C HIGINIO, CMP ####[address] Leukocytes [#/volume] correc jewel for nucleated erythrocytes in Blood by Automated counOrdered By: Eulogio Ruvalcaba on 03-03-2023 WBC corrected for nucl RBC Auto (Bld) [#/Vol] 12.4 10*3/uL 4.1-10.5 [facility] Leukocytes [#/volume] in Blo od by Automated countOrdered By: Eulogio Ruvalcaba on 03-03-2023 WBC (Bld) [#/Vol] 12.4 10*3/uL High 4.1-10.5 [facility] Comment on above: Performed By: #### C HIGINIO, CMP ####[place] [id number] [facility] Lymphocytes [#/volume] in Bl ood by Automated countOrdered By: Eulogio Ruvalcaba on 03-03-2023 Lymphocytes (Bld) [#/Vol] 3.1 10*3/uL Normal 1.00-4.8 [facility] Comment on above: Performed By: #### C HIGINIO, CMP ####[place] [id number] [facility] Lymphocytes/100 leukocytes i n Blood by Automated countOrdered By: Eulogio Ruvalcaba on 03-03-2023 Lymphocytes/100 WBC (Bld) 24.7 % Normal . [facility] Comment on above: Performed By: #### C HIGINIO, CMP ####[address] MCH [Entitic mass] by Automa jewel countOrdered By: Eulogio Ruvalcaba on 03-03-2023 MCH (RBC) [Entitic mass] 30.0 pg Normal 27.5-35.2 [facility] Comment on above: Performed By: #### C HIGINIO, CMP ####[address] MCHC Auto (RBC) [Mass/Vol]Or dered By: Eulogio Ruvalcaba on 03-03-2023 MCHC (RBC) [Mass/Vol] 33.8 g/dL 32.5-35.6 [facility] MCV [Entitic volume] by Auto mated countOrdered By: Eulogio Ruvalcaba on 03-03-2023 MCV (RBC) [Entitic vol] 88.7 fL Normal 83.5-101 [facility] Comment on above: Performed By: #### C HIGINIO, CMP ####[address] Neutrophils [#/volume] in Bl ood by Automated countOrdered By: Eulogio Ruvalcaba on 03-03-2023 Neutrophils (Bld) [#/Vol] 7.7 10*3/uL Normal 1.8-7.7 [facility] Comment on above: Performed By: #### C HIGINIO, CMP ####[address] No Panel InformationOrdered By: Eulogio Ruvalcaba on 03-03-2023 Estimated GFR (CKD-EPI) 54.671 mL/Min [facility] Creatinine Clearance (Chem 54.47 [facility] Nucleated erythrocytes [Pres ence] in Blood by Automated countOrdered By: Eulogio Ruvalcaba on 03-03-2023 Nucleated RBC Auto Ql (Bld) 0.1 /100{WBC} 0-0.5 [facility] Platelet mean volume [Entiti c volume] in Blood by Automated countOrdered By: Eulogiojolie Ruvalcaba on 03-03-2023 Platelet mean volume (Bld) [Entitic vol] 8.5 fL Normal 6.6-10.1 [facility] Comment on above: Performed By: #### C HIGINIO, CMP ####[place] [id number] [facility] Platelets [#/volume] in Bloo d by Automated countOrdered By: Eulogio Ruvalcaba on 03-03-2023 Platelets (Bld) [#/Vol] 324 10*3/uL Normal 150-450 [facility] Comment on above: Performed By: #### C HIGINIO, CMP ####[place] [id number] [facility] Potassium [Moles/volume] in Serum or PlasmaOrdered By: Eulogio Ruvalcaba on 03-03-2023 Potassium [Moles/Vol] 4.6 mmol/L Normal 3.5-5.1 [facility] Comment on above: Performed By: #### C HIGINIO, CMP ####[place] [id number] [facility] Protein [Mass/volume] in Ser um or PlasmaOrdered By: Eulogio Ruvalcaba on 03-03-2023 Protein [Mass/Vol] 5.7 g/dL Low 6.4-8.9 [facility] Comment on above: Performed By: #### C HIGINIO, CMP ####[place] [id number] [facility] Serum globulin measurement b y calculation (mass/volume)Ordered By: Eulogio Ruvalcaba on 03-03-2023 Globulin (S) [Mass/Vol] 2.5 g/dL Normal [facility] Comment on above: Performed By: #### C BC, CMP ####[place] [id number] [facility] Serum or plasma albumin/glob ulin mass ratioOrdered By: Eulogio Ruvalcaba on 03-03-2023 Albumin/Globulin [Mass ratio] 1.3 {ratio} Normal [facility] Comment on above: Performed By: #### C BC, CMP ####[place] [id number] [facility] Serum or plasma anion gap de terminationOrdered By: Eulogio Ruvalcaba on 03-03-2023 Anion gap [Moles/Vol] 9.4 mmol/L Normal 6.0-15.0 [facility] Comment on above: Performed By: #### C BC, CMP ####[place] [id number] [facility] Sodium [Moles/volume] in Ser um or PlasmaOrdered By: Eulogio Ruvalcaba on 03-03-2023 Sodium [Moles/Vol] 139 mmol/L Normal 136-145 [facility] Comment on above: Performed By: #### C BC, CMP ####[address] Urea nitrogen [Mass/volume] in Serum or PlasmaOrdered By: Eulogio Ruvalcaba on 03-03-2023 Urea nitrogen [Mass/Vol] 23 mg/dL Normal 7-25 [facility] Comment on above: Performed By: #### C HIGINIO, CMP ####[place] [id number] [facility] Complete Blood Count Auto Di ffon 03-02-2023 Basophils (Bld) [#/Vol] 0.1 10*3/uL Normal 0.0-0.2 [facility] Comment on above: Result Comment: PERF ORMED BY:[address] [place], [place] [phone] MEDICAL DIRECTORJOSEPH GARCIA M.D. Performed By: #### C BC, CMP ####[place] [id number] [facility] Basophils/100 WBC (Bld) 0.7 % Normal . [facility] Comment on above: Performed By: #### C BC, CMP ####[address] Eosinophils (Bld) [#/Vol] 0.4 10*3/uL Normal 0.0-0.45 [facility] Comment on above: Performed By: #### C BC, CMP ####[address] Eosinophils/100 WBC (Bld) 3.0 % Normal . [facility] Comment on above: Performed By: #### C BC, CMP ####[address] Erythrocyte distribution width (RBC) [Ratio] 13.8 % Normal 12.0-14.8 [facility] Comment on above: Performed By: #### C HIGINIO, CMP ####[address] Hematocrit (Bld) [Volume fraction] 32.0 % Low 38.8-50.0 [facility] Comment on above: Performed By: #### C BC, CMP ####[address] Hemoglobin (Bld) [Mass/Vol] 10.8 g/dL Low 13.0-17.0 [facility] Comment on above: Performed By: #### C HIGINIO, CMP ####[address] Lymphocytes (Bld) [#/Vol] 2.7 10*3/uL Normal 1.00-4.8 [facility] Comment on above: Performed By: #### C BC, CMP ####[address] Lymphocytes/100 WBC (Bld) 22.8 % Normal . [facility] Comment on above: Performed By: #### C BC, CMP ####[address] MCH (RBC) [Entitic mass] 29.8 pg Normal 27.5-35.2 [facility] Comment on above: Performed By: #### C BC, CMP ####[address] MCV (RBC) [Entitic vol] 88.7 fL Normal 83.5-101 [facility] Comment on above: Performed By: #### C HIGINIO, CMP ####[address] Mean Corpuscular HGB Conc 33.6 g/dL Normal 32.5-35.6 [facility] Comment on above: Performed By: #### C HIGINIO, CMP ####[address] Monocytes (Bld) [#/Vol] 1.2 10*3/uL High 0.0-0.8 [facility] Comment on above: Performed By: #### C HIGINIO, CMP ####[address] Monocytes/100 WBC (Bld) 10.2 % Normal . [facility] Comment on above: Performed By: #### C HIGINIO, CMP ####[address] Neutrophils (Bld) [#/Vol] 7.6 10*3/uL Normal 1.8-7.7 [facility] Comment on above: Performed By: #### C HIGINIO, CMP ####[address] Neutrophils/100 WBC (Bld) 63.3 % Normal . [facility] Comment on above: Performed By: #### C HIGINIO, CMP ####[address] NRBC% 0.0 /100{WBC} Normal 0-0.5 [facility] Comment on above: Performed By: #### C HIGINIO, CMP ####[address] Platelet mean volume (Bld) [Entitic vol] 8.4 fL Normal 6.6-10.1 [facility] Comment on above: Performed By: #### C HIGINIO, CMP ####[address] Platelets (Bld) [#/Vol] 309 10*3/uL Normal 150-450 [facility] Comment on above: Performed By: #### C BC, CMP ####[place] [id number] [facility] RBC (Bld) [#/Vol] 3.61 10*6/uL Low 3.90-5.60 [facility] Comment on above: Performed By: #### C BC, CMP ####[place] [id number] [facility] WBC (Bld) [#/Vol] 12.0 10*3/uL High 4.1-10.5 [facility] Comment on above: Performed By: #### C BC, CMP ####[place] [id number] [facility] Comprehensive Metabolic Pane neil 03-02-2023 Albumin [Mass/Vol] 3.2 g/dL Low 3.5-5.7 [facility] Comment on above: Performed By: #### C BC, CMP ####[address] Albumin/Globulin [Mass ratio] 1.2 {ratio} Normal [facility] Comment on above: Performed By: #### C BC, CMP ####[place] [id number] [facility] ALP [Catalytic activity/Vol] 63 U/L Normal 34-104 [facility] Comment on above: Performed By: #### C BC, CMP ####[place] [id number] [facility] ALT [Catalytic activity/Vol] 12 U/L Normal 7-52 [facility] Comment on above: Performed By: #### C BC, CMP ####[place] [id number] [facility] Anion gap [Moles/Vol] 9.3 mmol/L Normal 6.0-15.0 [facility] Comment on above: Performed By: #### C BC, CMP ####[facility] [address] AST [Catalytic activity/Vol] 14 U/L Normal 13-39 [facility] Comment on above: Performed By: #### C BC, CMP ####[address] Bilirubin [Mass/Vol] 0.5 mg/dL Normal 0.3-1.0 [facility] Comment on above: Performed By: #### C BC, CMP ####[address] Calcium [Mass/Vol] 8.8 mg/dL Normal 8.6-10.3 [facility] Comment on above: Performed By: #### C BC, CMP ####[address] Chloride [Moles/Vol] 103 mmol/L Normal 98-107 [facility] Comment on above: Performed By: #### C BC, CMP ####[address] CO2 [Moles/Vol] 30.6 mmol/L Normal 21.0-31.0 [facility] Comment on above: Performed By: #### C BC, CMP ####[address] Creatinine [Mass/Vol] 1.34 mg/dL High 0.70-1.30 [facility] Comment on above: Performed By: #### C BC, CMP ####[address] Creatinine Clr Calc Pharmacy 56.10 Normal [facility] Comment on above: Result Comment: PERF ORMED BY:[address] [place] [place], [place] [phone] MEDICAL SILVIA GARCIA M.D. Performed By: #### C BC, CMP ####[place] [id number] [facility] GFR/1.73 sq M.predicted MDRD (S/P/Bld) [Vol rate/Area] 56.635 mL/min/{1.73_m2} Normal [facility] Comment on above: Performed By: #### C BC, CMP ####[address] [address] [facility] Globulin (S) [Mass/Vol] 2.7 g/dL Normal [facility] Comment on above: Performed By: #### C BC, CMP ####[address] [address] [facility] Glucose [Mass/Vol] 85 mg/dL Normal 70-100 [facility] Comment on above: Result Comment: [facility][note 3] Glucose Reference Range is dependent on time and content of last meal. Glucose of more than 200 mg/dL in a nonstressed, ambulatory subject supports the diagnosis of Diabetes Mellitus. ADA recommended reference range Performed By: #### C BC, CMP ####[address] [address] [facility] Potassium [Moles/Vol] 3.9 mmol/L Normal 3.5-5.1 [facility] Comment on above: Performed By: #### C BC, CMP ####[address] [address] [facility] Protein [Mass/Vol] 5.9 g/dL Low 6.4-8.9 [facility] Comment on above: Performed By: #### C BC, CMP ####[address] [address] [facility] Sodium [Moles/Vol] 139 mmol/L Normal 136-145 [facility] Comment on above: Performed By: #### C BC, CMP ####[address] [address] [facility] Urea nitrogen [Mass/Vol] 20 mg/dL Normal 7-25 [facility] Comment on above: Performed By: #### C BC, CMP ####[address] [address] [facility] Glucose Poct Glucometerson 1 Glucose [Mass/Vol] 235 mg/dL Normal [facility] Comment on above: Result Comment: [place] om Glucose Reference Range is dependent on time and content of last meal. Glucose of more than 200 mg/dL in a nonstressed, ambulatory subject supports the diagnosis of Diabetes Mellitus.PERFORMED BY:[place] [address] [place] [place], [place] [phone] MEDICAL DIRECTORJOSEPH GARCIA M.D. Performed By: #### G LULS ####Point of Care testing, Commemt1 Glu2: Cleaned Meter Normal [facility] Comment on above: Result Comment: PERF ORMED BY:[place] [address] [address] [place], [place] [phone] MEDICAL DIRECTORJOSEPH GARCIA M.D. Performed By: #### G LULS ####Point of Care testing, Glucose [Mass/Vol] 142 mg/dL Normal [facility] Comment on above: Result Comment: [place] om Glucose Reference Range is dependent on time and content of last meal. Glucose of more than 200 mg/dL in a nonstressed, ambulatory subject supports the diagnosis of Diabetes Mellitus. Performed By: #### G LULS ####Point of Care testing, Glucose [Mass/Vol] 85 mg/dL Normal [facility] Comment on above: Result Comment: [place] om Glucose Reference Range is dependent on time and content of last meal. Glucose of more than 200 mg/dL in a nonstressed, ambulatory subject supports the diagnosis of Diabetes Mellitus.PERFORMED BY:[place] [address] [place] [place], [place] [phone] MEDICAL DIRECTORJOSEPH GARCIA M.D. Performed By: #### G LULS ####Point of Care testing, Commemt1 Glu2: Cleaned Meter Normal [facility] Comment on above: Result Comment: PERF ORMED BY:[place] [address] [address] [place], [place] [phone] MEDICAL DIRECTORJOSEPH GARCIA M.D. Performed By: #### G LULS ####Point of Care testing, Glucose [Mass/Vol] 85 mg/dL Normal [facility] Comment on above: Result Comment: [place] om Glucose Reference Range is dependent on time and content of last meal. Glucose of more than 200 mg/dL in a nonstressed, ambulatory subject supports the diagnosis of Diabetes Mellitus. Performed By: #### G LULS ####Point of Care testing, Glucose [Mass/Vol] 259 mg/dL Normal [facility] Comment on above: Result Comment: [place] om Glucose Reference Range is dependent on time and content of last meal. Glucose of more than 200 mg/dL in a nonstressed, ambulatory subject supports the diagnosis of Diabetes Mellitus.PERFORMED BY:[address] [place] [place], [place] [phone] MEDICAL DIRECTORJOSEPH GARCIA M.D. Performed By: #### G LULS ####Point of Care testing, Commemt1 Glu2: Cleaned Meter Normal [facility] Comment on above: Result Comment: PERF ORMED BY:[address] [place] [place], [place] [phone] MEDICAL DIRECTORJOSEPH GARCIA M.D. Performed By: #### G LULS ####Point of Care testing, Glucose [Mass/Vol] 96 mg/dL Normal [facility] Comment on above: Result Comment: [place] om Glucose Reference Range is dependent on time and content of last meal. Glucose of more than 200 mg/dL in a nonstressed, ambulatory subject supports the diagnosis of Diabetes Mellitus. Performed By: #### G LULS ####Point of Care testing, No Panel InformationOrdered By: Eulogio Ruvalcaba on 03-02-2023 Bedside Glucose Comment Glu2: cleaned meter [facility] Basic Metabolic Panelon 10-0 Anion gap [Moles/Vol] 9.6 mmol/L Normal 6.0-15.0 [facility] Comment on above: Performed By: #### B MP, CBC ####[facility]111[facility], [place] [address] [facility] Calcium [Mass/Vol] 9.1 mg/dL Normal 8.6-10.3 [facility] Comment on above: Performed By: #### B MP, CBC ####[address] [address] [facility] Chloride [Moles/Vol] 102 mmol/L Normal 98-107 [facility] Comment on above: Performed By: #### B MP, CBC ####[address] [place] [address] [facility] CO2 [Moles/Vol] 30.1 mmol/L Normal 21.0-31.0 [facility] Comment on above: Performed By: #### B MP, CBC ####[place] [id number] [facility] Creatinine [Mass/Vol] 1.50 mg/dL High 0.70-1.30 [facility] Comment on above: Performed By: #### B MP, CBC ####[place] [id number] [facility] Creatinine Clr Calc Pharmacy 50.11 Normal [facility] Comment on above: Result Comment: PERF ORMED BY:[address] [place], [place] [phone] MEDICAL DIRECTORJOSEPH GARCIA M.D. Performed By: #### B MP, CBC ####[address] [address] [facility] GFR/1.73 sq M.predicted MDRD (S/P/Bld) [Vol rate/Area] 49.466 mL/min/{1.73_m2} Normal [facility] Comment on above: Performed By: #### B MP, CBC ####[place] [id number] [facility] Glucose [Mass/Vol] 109 mg/dL High 70-100 [facility] Comment on above: Result Comment: [place] Glucose Reference Range is dependent on time and content of last meal. Glucose of more than 200 mg/dL in a nonstressed, ambulatory subject supports the diagnosis of Diabetes Mellitus. ADA recommended reference range Performed By: #### B MP, CBC ####[place] [id number] [facility] Potassium [Moles/Vol] 3.7 mmol/L Normal 3.5-5.1 [facility] Comment on above: Performed By: #### B MP, CBC ####[address] Sodium [Moles/Vol] 138 mmol/L Normal 136-145 [facility] Comment on above: Performed By: #### B MP, CBC ####[address] Urea nitrogen [Mass/Vol] 17 mg/dL Normal 7-25 [facility] Comment on above: Performed By: #### B MP, CBC ####[address] Complete Blood Count Auto Di ffon 03-01-2023 Basophils (Bld) [#/Vol] 0.1 10*3/uL Normal 0.0-0.2 [facility] Comment on above: Result Comment: PERF ORMED BY:[address] [place], [place] [phone] MEDICAL DIRECTORJOSEPH GARCIA M.D. Performed By: #### B MP, CBC ####[address] Basophils/100 WBC (Bld) 0.5 % Normal . [facility] Comment on above: Performed By: #### B MP, CBC ####[address] Eosinophils (Bld) [#/Vol] 0.2 10*3/uL Normal 0.0-0.45 [facility] Comment on above: Performed By: #### B MP, CBC ####[address] Eosinophils/100 WBC (Bld) 1.9 % Normal . [facility] Comment on above: Performed By: #### B MP, CBC ####[address] Erythrocyte distribution width (RBC) [Ratio] 13.8 % Normal 12.0-14.8 [facility] Comment on above: Performed By: #### B MP, CBC ####[address] Hematocrit (Bld) [Volume fraction] 33.6 % Low 38.8-50.0 [facility] Comment on above: Performed By: #### B MP, CBC ####[address] Hemoglobin (Bld) [Mass/Vol] 11.6 g/dL Low 13.0-17.0 [facility] Comment on above: Performed By: #### B MP, CBC ####[address] Lymphocytes (Bld) [#/Vol] 2.6 10*3/uL Normal 1.00-4.8 [facility] Comment on above: Performed By: #### B MP, CBC ####[address] Lymphocytes/100 WBC (Bld) 20.3 % Normal . [facility] Comment on above: Performed By: #### B MP, CBC ####[address] MCH (RBC) [Entitic mass] 30.2 pg Normal 27.5-35.2 [facility] Comment on above: Performed By: #### B MP, CBC ####[address] MCV (RBC) [Entitic vol] 87.4 fL Normal 83.5-101 [facility] Comment on above: Performed By: #### B MP, CBC ####[address] Mean Corpuscular HGB Conc 34.5 g/dL Normal 32.5-35.6 [facility] Comment on above: Performed By: #### B MP, CBC ####[address] Monocytes (Bld) [#/Vol] 1.0 10*3/uL High 0.0-0.8 [facility] Comment on above: Performed By: #### B MP, CBC ####[address] Monocytes/100 WBC (Bld) 7.8 % Normal . [facility] Comment on above: Performed By: #### B MP, CBC ####[place] [id number] [facility] Neutrophils (Bld) [#/Vol] 9.0 10*3/uL High 1.8-7.7 [facility] Comment on above: Performed By: #### B MP, CBC ####[place] [id number] [facility] Neutrophils/100 WBC (Bld) 69.5 % Normal . [facility] Comment on above: Performed By: #### B MP, CBC ####[address] NRBC% 0.1 /100{WBC} Normal 0-0.5 [facility] Comment on above: Performed By: #### B MP, CBC ####[address] Platelet mean volume (Bld) [Entitic vol] 8.6 fL Normal 6.6-10.1 [facility] Comment on above: Performed By: #### B MP, CBC ####[place] [id number] [facility] Platelets (Bld) [#/Vol] 340 10*3/uL Normal 150-450 [facility] Comment on above: Performed By: #### B MP, CBC ####[place] [id number] [facility] RBC (Bld) [#/Vol] 3.84 10*6/uL Low 3.90-5.60 [facility] Comment on above: Performed By: #### B MP, CBC ####[place] [id number] [facility] WBC (Bld) [#/Vol] 13.0 10*3/uL High 4.1-10.5 [facility] Comment on above: Performed By: #### B MP, CBC ####[address] [place] [address] [facility] Glucose Poct Glucometerson 1 Glucose [Mass/Vol] 232 mg/dL Normal [facility] Comment on above: Result Comment: [place] om Glucose Reference Range is dependent on time and content of last meal. Glucose of more than 200 mg/dL in a nonstressed, ambulatory subject supports the diagnosis of Diabetes Mellitus.PERFORMED BY:[address] [place]ATracyLUZ [place], [place] [phone] MEDICAL DIRECTORJOSEPH GARCIA M.D. Performed By: #### G LULS ####Point of Care testing, Commemt1 Glu2: Cleaned Meter Normal [facility] Comment on above: Result Comment: PERF ORMED BY:[place] [address] [address] LU[address] [place], [place] [id number] MEDICAL DIRECTORJOSEPH GARCIA M.D. Performed By: #### G LULS ####Point of Care testing, Glucose [Mass/Vol] 134 mg/dL Normal [facility] Comment on above: Result Comment: [place] om Glucose Reference Range is dependent on time and content of last meal. Glucose of more than 200 mg/dL in a nonstressed, ambulatory subject supports the diagnosis of Diabetes Mellitus. Performed By: #### G LULS ####Point of Care testing, Glucose [Mass/Vol] 152 mg/dL Normal [facility] Comment on above: Result Comment: [place] om Glucose Reference Range is dependent on time and content of last meal. Glucose of more than 200 mg/dL in a nonstressed, ambulatory subject supports the diagnosis of Diabetes Mellitus.PERFORMED BY:[address] [address] SHIVA NUÑ[place], [place] [phone] MEDICAL SILVIA GARCIA M.D. Performed By: #### G LULS ####Point of Care testing, Glucose [Mass/Vol] 62 mg/dL Normal [facility] Comment on above: Result Comment: [place] om Glucose Reference Range is dependent on time and content of last meal. Glucose of more than 200 mg/dL in a nonstressed, ambulatory subject supports the diagnosis of Diabetes Mellitus.PERFORMED BY:[address] [address] SHIVA NUÑ[place], [place] [phone] MEDICAL DIRECTORJOSEPH GARCIA M.D. Performed By: #### G LULS ####Point of Care testing, Commemt1 Glu2: Cleaned Meter Normal [facility] Comment on above: Result Comment: PERF ORMED BY:[address] NUÑEZDAVEN[place], [place] [phone] MEDICAL DIRECTORJOSEPH GARCIA M.D. Performed By: #### G LULS ####Point of Care testing, Glucose [Mass/Vol] 263 mg/dL Normal [facility] Comment on above: Result Comment: [place] om Glucose Reference Range is dependent on time and content of last meal. Glucose of more than 200 mg/dL in a nonstressed, ambulatory subject supports the diagnosis of Diabetes Mellitus. Performed By: #### G LULS ####Point of Care testing, Commemt1 Glu2: Cleaned Meter Normal [facility] Comment on above: Result Comment: PERF ORMED BY:[address] NUÑEZDA[place], [place] [phone] MEDICAL DIRECTORJOSEPH GARCIA M.D. Performed By: #### G LULS ####Point of Care testing, Glucose [Mass/Vol] 103 mg/dL Normal [facility] Comment on above: Result Comment: [place] om Glucose Reference Range is dependent on time and content of last meal. Glucose of more than 200 mg/dL in a nonstressed, ambulatory subject supports the diagnosis of Diabetes Mellitus. Performed By: #### G LULS ####Point of Care testing, Basic Metabolic Panelon 10-0 -2022 Anion gap [Moles/Vol] 8.6 mmol/L Normal 6.0-15.0 [facility] Comment on above: Performed By: #### C BC, BMP ####[address] [address] [facility] Calcium [Mass/Vol] 8.7 mg/dL Normal 8.6-10.3 [facility] Comment on above: Performed By: #### C BC, BMP ####[address] [address] [facility] Chloride [Moles/Vol] 103 mmol/L Normal 98-107 [facility] Comment on above: Performed By: #### C BC, BMP ####[address] [address] [facility] CO2 [Moles/Vol] 31.5 mmol/L High 21.0-31.0 [facility] Comment on above: Performed By: #### C BC, BMP ####[address] [address] [facility] Creatinine [Mass/Vol] 1.73 mg/dL High 0.70-1.30 [facility] Comment on above: Performed By: #### C BC, BMP ####[address] [address] [facility] Creatinine Clr Calc Pharmacy 43.12 Normal [facility] Comment on above: Result Comment: PERF ORMED BY:[address] [place], [place] [phone] MEDICAL SILVIA GARCIA M.D. Performed By: #### C HIGINIO, BMP ####[address] [address] [facility] GFR/1.73 sq M.predicted MDRD (S/P/Bld) [Vol rate/Area] 41.682 mL/min/{1.73_m2} Normal [facility] Comment on above: Performed By: #### C BC, BMP ####[address] [address] [facility] Glucose [Mass/Vol] 99 mg/dL Normal 70-100 [facility] Comment on above: Result Comment: [place] Glucose Reference Range is dependent on time and content of last meal. Glucose of more than 200 mg/dL in a nonstressed, ambulatory subject supports the diagnosis of Diabetes Mellitus. ADA recommended reference range Performed By: #### C BC, BMP ####[address] Potassium [Moles/Vol] 4.1 mmol/L Normal 3.5-5.1 [facility] Comment on above: Performed By: #### C BC, BMP ####[address] Sodium [Moles/Vol] 139 mmol/L Normal 136-145 [facility] Comment on above: Performed By: #### C BC, BMP ####[address] Urea nitrogen [Mass/Vol] 17 mg/dL Normal 7-25 [facility] Comment on above: Performed By: #### C BC, BMP ####[address] Complete Blood Count Auto Di ffon 02-28-2023 Basophils (Bld) [#/Vol] 0.1 10*3/uL Normal 0.0-0.2 [facility] Comment on above: Result Comment: PERF ORMED BY:[address] [place], [place] [phone] MEDICAL SILVIA GARCIA M.D. Performed By: #### C BC, BMP ####[address] Basophils/100 WBC (Bld) 0.6 % Normal . [facility] Comment on above: Performed By: #### C BC, BMP ####[address] Eosinophils (Bld) [#/Vol] 0.4 10*3/uL Normal 0.0-0.45 [facility] Comment on above: Performed By: #### C BC, BMP ####[address] Eosinophils/100 WBC (Bld) 2.8 % Normal . [facility] Comment on above: Performed By: #### C BC, BMP ####[address] Erythrocyte distribution width (RBC) [Ratio] 13.9 % Normal 12.0-14.8 [facility] Comment on above: Performed By: #### C BC, BMP ####[address] Hematocrit (Bld) [Volume fraction] 31.9 % Low 38.8-50.0 [facility] Comment on above: Performed By: #### C BC, BMP ####[address] Hemoglobin (Bld) [Mass/Vol] 10.8 g/dL Low 13.0-17.0 [facility] Comment on above: Performed By: #### C BC, BMP ####[address] Lymphocytes (Bld) [#/Vol] 2.5 10*3/uL Normal 1.00-4.8 [facility] Comment on above: Performed By: #### C BC, BMP ####[address] Lymphocytes/100 WBC (Bld) 20.0 % Normal . [facility] Comment on above: Performed By: #### C BC, BMP ####[address] MCH (RBC) [Entitic mass] 30.0 pg Normal 27.5-35.2 [facility] Comment on above: Performed By: #### C BC, BMP ####[place] [id number] [facility] MCV (RBC) [Entitic vol] 88.7 fL Normal 83.5-101 [facility] Comment on above: Performed By: #### C BC, BMP ####[place] [id number] [facility] Mean Corpuscular HGB Conc 33.8 g/dL Normal 32.5-35.6 [facility] Comment on above: Performed By: #### C BC, BMP ####[place] [id number] [facility] Monocytes (Bld) [#/Vol] 1.4 10*3/uL High 0.0-0.8 [facility] Comment on above: Performed By: #### C BC, BMP ####[place] [id number] [facility] Monocytes/100 WBC (Bld) 10.7 % Normal . [facility] Comment on above: Performed By: #### C BC, BMP ####[place] [id number] [facility] Neutrophils (Bld) [#/Vol] 8.4 10*3/uL High 1.8-7.7 [facility] Comment on above: Performed By: #### C HIGINIO, BMP ####[place] [id number] [facility] Neutrophils/100 WBC (Bld) 65.9 % Normal . [facility] Comment on above: Performed By: #### C HIGINIO, BMP ####[place] [id number] [facility] NRBC% 0.0 /100{WBC} Normal 0-0.5 [facility] Comment on above: Performed By: #### C BC, BMP ####[place] [id number] [facility] Platelet mean volume (Bld) [Entitic vol] 8.4 fL Normal 6.6-10.1 [facility] Comment on above: Performed By: #### C BC, BMP ####[place] [id number] [facility] Platelets (Bld) [#/Vol] 284 10*3/uL Normal 150-450 [facility] Comment on above: Performed By: #### C BC, BMP ####[place] [id number] [facility] RBC (Bld) [#/Vol] 3.59 10*6/uL Low 3.90-5.60 [facility] Comment on above: Performed By: #### C BC, BMP ####[facility] [place] [address] [facility] WBC (Bld) [#/Vol] 12.7 10*3/uL High 4.1-10.5 [facility] Comment on above: Performed By: #### C BC, BMP ####[facility] [place] [address] [facility] Glucose Poct Glucometerson 1 Glucose [Mass/Vol] 158 mg/dL Normal [facility] Comment on above: Result Comment: [facility][note 3] Glucose Reference Range is dependent on time and content of last meal. Glucose of more than 200 mg/dL in a nonstressed, ambulatory subject supports the diagnosis of Diabetes Mellitus.PERFORMED BY:[address]LU[address] [place], [place] [phone] MEDICAL DIRECTORJOSEPH GARCIA M.D. Performed By: #### G LULS ####Point of Care testing, Glucose [Mass/Vol] 188 mg/dL Normal [facility] Comment on above: Result Comment: [facility][note 3] Glucose Reference Range is dependent on time and content of last meal. Glucose of more than 200 mg/dL in a nonstressed, ambulatory subject supports the diagnosis of Diabetes Mellitus.PERFORMED BY:[address] [place], [place] [phone] MEDICAL SILVIA GARCIA M.D. Performed By: #### G LULS ####Point of Care testing, Glucose [Mass/Vol] 184 mg/dL Normal [facility] Comment on above: Result Comment: [facility][note 3] Glucose Reference Range is dependent on time and content of last meal. Glucose of more than 200 mg/dL in a nonstressed, ambulatory subject supports the diagnosis of Diabetes Mellitus.PERFORMED BY:[address] NUÑ[place]ZDA[place], [place] [phone] MEDICAL SILVIA GARCIA M.D. Performed By: #### G LULS ####Point of Care testing, Glucose [Mass/Vol] 101 mg/dL Normal [facility] Comment on above: Result Comment: [facility][note 3] Glucose Reference Range is dependent on time and content of last meal. Glucose of more than 200 mg/dL in a nonstressed, ambulatory subject supports the diagnosis of Diabetes Mellitus.PERFORMED BY:[address] [place], [place] [phone] MEDICAL DIRECTORJOSEPH GARCIA M.D. Performed By: #### G LUANURAG ####Point of Care testing, Basic Metabolic Panelon 10-0 Anion gap [Moles/Vol] 10.0 mmol/L Normal 6.0-15.0 [facility] Comment on above: Performed By: #### M G, CBC, BMP ####[address] [address] [facility] Calcium [Mass/Vol] 8.1 mg/dL Low 8.6-10.3 [facility] Comment on above: Performed By: #### M G, CBC, BMP ####[address] [address] [facility] Chloride [Moles/Vol] 103 mmol/L Normal 98-107 [facility] Comment on above: Performed By: #### M G, CBC, BMP ####[address] [address] [facility] CO2 [Moles/Vol] 29.0 mmol/L Normal 21.0-31.0 [facility] Comment on above: Performed By: #### M G, CBC, BMP ####[facility] [place] [address] [facility] Creatinine [Mass/Vol] 1.53 mg/dL High 0.70-1.30 [facility] Comment on above: Performed By: #### M G, CBC, BMP ####[facility] [place] [address] [facility] Creatinine Clr Calc Pharmacy 48.43 Normal [facility] Comment on above: Performed By: #### M G, CBC, BMP ####[place] [place] [address] [facility] GFR/1.73 sq M.predicted MDRD (S/P/Bld) [Vol rate/Area] 48.304 mL/min/{1.73_m2} Normal [facility] Comment on above: Performed By: #### M G, CBC, BMP ####[address] [address] [facility] Glucose [Mass/Vol] 93 mg/dL Normal 70-100 [facility] Comment on above: Result Comment: [facility][note 3] Glucose Reference Range is dependent on time and content of last meal. Glucose of more than 200 mg/dL in a nonstressed, ambulatory subject supports the diagnosis of Diabetes Mellitus. ADA recommended reference range Performed By: #### M G, CBC, BMP ####[place] [id number] [facility] Potassium [Moles/Vol] 4.0 mmol/L Normal 3.5-5.1 [facility] Comment on above: Performed By: #### Franco G, CBC, BMP ####[place] [id number] [facility] Sodium [Moles/Vol] 138 mmol/L Normal 136-145 [facility] Comment on above: Performed By: #### Franco G, CBC, BMP ####[place] [id number] [facility] Urea nitrogen [Mass/Vol] 16 mg/dL Normal 7-25 [facility] Comment on above: Performed By: #### M G, CBC, BMP ####[place] [id number] [facility] Complete Blood Count Auto Di ffon 02-27-2023 Basophils (Bld) [#/Vol] 0.1 10*3/uL Normal 0.0-0.2 [facility] Comment on above: Result Comment: PERF ORMED BY:[address] [place], [place] [phone] MEDICAL SILVIA GARCIA M.D. Performed By: #### M G, CBC, BMP ####[address] Basophils/100 WBC (Bld) 0.6 % Normal . [facility] Comment on above: Performed By: #### M G, CBC, BMP ####[address] Eosinophils (Bld) [#/Vol] 0.2 10*3/uL Normal 0.0-0.45 [facility] Comment on above: Performed By: #### M G, CBC, BMP ####[address] Eosinophils/100 WBC (Bld) 1.3 % Normal . [facility] Comment on above: Performed By: #### M G, CBC, BMP ####[address] Erythrocyte distribution width (RBC) [Ratio] 14.0 % Normal 12.0-14.8 [facility] Comment on above: Performed By: #### M G, CBC, BMP ####[address] Hematocrit (Bld) [Volume fraction] 31.5 % Low 38.8-50.0 [facility] Comment on above: Performed By: #### M G, CBC, BMP ####[address] Hemoglobin (Bld) [Mass/Vol] 10.7 g/dL Low 13.0-17.0 [facility] Comment on above: Performed By: #### M G, CBC, BMP ####[address] Lymphocytes (Bld) [#/Vol] 2.8 10*3/uL Normal 1.00-4.8 [facility] Comment on above: Performed By: #### M G, CBC, BMP ####[address] Lymphocytes/100 WBC (Bld) 20.1 % Normal . [facility] Comment on above: Performed By: #### M G, CBC, BMP ####[address] MCH (RBC) [Entitic mass] 29.9 pg Normal 27.5-35.2 [facility] Comment on above: Performed By: #### M G, CBC, BMP ####[address] MCV (RBC) [Entitic vol] 87.8 fL Normal 83.5-101 [facility] Comment on above: Performed By: #### M G, CBC, BMP ####[address] Mean Corpuscular HGB Conc 34.1 g/dL Normal 32.5-35.6 [facility] Comment on above: Performed By: #### M G, CBC, BMP ####[address] Monocytes (Bld) [#/Vol] 1.5 10*3/uL High 0.0-0.8 [facility] Comment on above: Performed By: #### M G, CBC, BMP ####[address] Monocytes/100 WBC (Bld) 10.6 % Normal . [facility] Comment on above: Performed By: #### M G, CBC, BMP ####[address] Neutrophils (Bld) [#/Vol] 9.4 10*3/uL High 1.8-7.7 [facility] Comment on above: Performed By: #### M G, CBC, BMP ####[address] Neutrophils/100 WBC (Bld) 67.4 % Normal . [facility] Comment on above: Performed By: #### M G, CBC, BMP ####[address] NRBC% 0.1 /100{WBC} Normal 0-0.5 [facility] Comment on above: Performed By: #### M G, CBC, BMP ####[place] [id number] [facility] Platelet mean volume (Bld) [Entitic vol] 8.5 fL Normal 6.6-10.1 [facility] Comment on above: Performed By: #### M G, CBC, BMP ####[place] [id number] [facility] Platelets (Bld) [#/Vol] 277 10*3/uL Normal 150-450 [facility] Comment on above: Performed By: #### M G, CBC, BMP ####[address] RBC (Bld) [#/Vol] 3.59 10*6/uL Low 3.90-5.60 [facility] Comment on above: Performed By: #### M G, CBC, BMP ####[address] WBC (Bld) [#/Vol] 13.9 10*3/uL High 4.1-10.5 [facility] Comment on above: Performed By: #### M G, CBC, BMP ####[address] Creatinineon 02-27-2023 Creatinine [Mass/Vol] 1.65 mg/dL High 0.70-1.30 [facility] Comment on above: Performed By: #### C REAT ####[address] Creatinine Clr Calc Pharmacy 45.05 Normal [facility] Comment on above: Result Comment: PERF ORMED BY:[address] [place], [place] [phone] MEDICAL DIRECTORJOSEPH GARCIA M.D. Performed By: #### C REAT ####[address] GFR/1.73 sq M.predicted MDRD (S/P/Bld) [Vol rate/Area] 44.119 mL/min/{1.73_m2} Normal [facility] Comment on above: Performed By: #### C REAT ####[place] [address] [address] Jacksonc[address] fear [place] [address] [facility] Glucose Poct Glucometerson 1 Commemt1 Glu2: Cleaned Meter Normal [facility] Comment on above: Result Comment: PERF ORMED BY:[place] [address] [address] [place], [place] [phone] MEDICAL DIRECTORJOSEPH GARCIA M.D. Performed By: #### G LULS ####Point of Care testing, Glucose [Mass/Vol] 216 mg/dL Normal [facility] Comment on above: Result Comment: [place] om Glucose Reference Range is dependent on time and content of last meal. Glucose of more than 200 mg/dL in a nonstressed, ambulatory subject supports the diagnosis of Diabetes Mellitus. Performed By: #### G LULS ####Point of Care testing, Glucose [Mass/Vol] 200 mg/dL Normal [facility] Comment on above: Result Comment: [place] om Glucose Reference Range is dependent on time and content of last meal. Glucose of more than 200 mg/dL in a nonstressed, ambulatory subject supports the diagnosis of Diabetes Mellitus.PERFORMED BY:[address]LU[address] [place], [place] [phone] MEDICAL DIRECTORJOSEPH GARCIA M.D. Performed By: #### G LULS ####Point of Care testing, Glucose [Mass/Vol] 224 mg/dL Normal [facility] Comment on above: Result Comment: [place] om Glucose Reference Range is dependent on time and content of last meal. Glucose of more than 200 mg/dL in a nonstressed, ambulatory subject supports the diagnosis of Diabetes Mellitus.PERFORMED BY:[place] [address] [address] [place], [place] [phone] MEDICAL DIRECTORJOSEPH GARCIA M.D. Performed By: #### G LULS ####Point of Care testing, Glucose [Mass/Vol] 114 mg/dL Normal [facility] Comment on above: Result Comment: [facility][note 3] Glucose Reference Range is dependent on time and content of last meal. Glucose of more than 200 mg/dL in a nonstressed, ambulatory subject supports the diagnosis of Diabetes Mellitus.PERFORMED BY:[place] [address] [place]ANLU[address] [place], [place] [phone] MEDICAL DIRECTORJOSEPH GARCIA M.D. Performed By: #### G LULS ####Point of Care testing, Magnesium [Mass/volume] in S rene or PlasmaOrdered By: Geo Thomas on 02-27-2023 Magnesium [Mass/Vol] 1.7 mg/dL Low 1.9-2.7 [facility] Comment on above: Result Comment: PERF ORMED BY:[place] [address] [address] [place]LU[address] [place], [place] [phone] MEDICAL DIRECTORJOSEPH GARCIA M.D. Performed By: #### M G, CBC, BMP ####[facility] [address] [place] [address] [facility] Serum or plasma trough vanco mycin levelOrdered By: Brennan Cerrato on 02-27-2023 Vancomycin trough [Mass/Vol] 21.5 ug/mL 10.0-20.0 [facility] Comment on above: Last dose: - Vancomycin [Mass/volume] in Serum or PlasmaOrdered By: Brennan Cerrato on 02-27-2023 Vancomycin [Mass/Vol] 14.2 ug/mL 5.0-20.0 [facility] Comment on above: Last dose: - Vancomycin,Randomon 02-28-20 Vancomycin,Random 14.2 ug/mL Normal 5.0-20.0 [facility] Comment on above: Order Comment: Date of last dose?: 20230226 Time of last dose?: 1600 Result Comment: Last dose: -PERFORMED BY:[place] [address] [address] [place]ANLU[address] [place], [place] [phone] MEDICAL DIRECTORJOSEPH GARCIA M.D. Performed By: #### V ANCR ####[address] [address] [place] [address] [facility] Vancomycin,Random 19.5 ug/mL Normal 5.0-20.0 [facility] Comment on above: Order Comment: Date of last dose?: 20230226 Time of last dose?: 1600 Result Comment: Last dose: -PERFORMED BY:[place] [address] [address] LATamikoTracyLUZ [place], [place] [phone] MEDICAL DIRECTORJOSEPH GARCIA M.D. Performed By: #### V ANCR ####[place] [place] [address] [facility] Vancomycin,Troughon 02-28-20 23 Vancomycin,Trough 21.5 ug/mL High 10.0-20.0 [facility] Comment on above: Order Comment: Time of next dose? 0300 Date of last dose?: 20230226 Time of last dose?: 1500 Result Comment: Last dose: -PERFORMED BY:[place] [address] [address] [place], [place] [phone] MEDICAL SILVIA GARCIA M.D. Performed By: #### V ANCT ####[address] [address] [facility] A1C with Estimated Average G luon 02-26-2023 Glucose [Mass/Vol] 160 mg/dL Normal [facility] Comment on above: Result Comment: PERF ORMED BY:[address] [place], [place] [phone] MEDICAL SILVIA GARCIA M.D. Performed By: #### P T, CMP, PTT, LIPID, PAB, CBC, A1C WT eA ####[address] [address] [facility] Activated partial thrombopla stin time (aPTT) in platelet poor plasma by coagulation aOrdered By: Geo Thomas on 02-26-2023 aPTT Coag (PPP) [Time] 31.6 s 25.1-36.5 [facility] Comment on above: A hematocrit value g reater than 55% may lead to inaccurate results in coagulation testing. Patients having hematocrit values >55% require a special collection tube for coagulation studies. Please contact the laboratory at [phone] for redraw instructions. Aerobic Cultureon 02-26-2023 Aerobic Culture Normal [facility] Comment on above: Performed By: #### G S, AERC ####[facility] [address] [place] [address] [facility] Anaerobic cultureOrdered By: Rohan Han on 02-26-2023 Bacteria identified Anaer cx Nom (Unsp spec) No Anaerobes Isolated 3 Days [facility] Bacteria identified Anaer cx Nom (Unsp spec) No Anaerobes Isolated 3 Days [facility] Bacteria identified Aer cx N om (Unsp spec)Ordered By: Rohan Han on 02-26-2023 Aerobic Culture Pseudomonas aerugino sa (MDRO) [facility] Aerobic Culture Pseudomonas aerugino sa (MDRO) [facility] Cholesterol [Mass/volume] in Serum or PlasmaOrdered By: Geo Thomas on 02-26-2023 Cholesterol [Mass/Vol] 92 mg/dL Low 140-200 [facility] Comment on above: Chol less than 200 m g/dl low riskChol 201-239 mg/dl borderline riskChol 240 mg/dl and greater high risk Order Comment: FASTI NG N Result Comment: Chol less than 200 mg/dl low risk Chol 201-239 mg/dl borderline risk Chol 240 mg/dl and greater high risk Performed By: #### P T, CMP, PTT, LIPID, PAB, CBC, A1C WTDeaconess Inc[facility] ####[facility] [id number] [place] [id number] [facility] Cholesterol in LDL Calc [Mas s/Vol]Ordered By: Geo Thomas on 02-26-2023 Cholesterol in LDL [Mass/Vol] 39 mg/dL 0-100 [facility] Comment on above: LDL ATP III CLASSIFI CATIONLDL less than 100 mg/dL OptimalLDL 100-129 mg/dL Near or above optimalLDL 130-159 mg/dL Borderline highLDL 160-189 mg/dL HighLDL greater than 189 mg/dL Very high Cholesterol in VLDL Calc [Ma ss/Vol]Ordered By: Geo Thomas on 02-26-2023 Cholesterol in VLDL [Mass/Vol] 29 mg/dL [facility] Complete Blood Count Auto Di ffon 02-26-2023 Basophils (Bld) [#/Vol] 0.1 10*3/uL Normal 0.0-0.2 [facility] Comment on above: Result Comment: PERF ORMED BY:[address] [place], [place] [phone] MEDICAL DIRECTORJOSEPH GARCIA M.D. Performed By: #### P T, CMP, PTT, LIPID, PAB, CBC, A1C WT eA ####[address] Basophils/100 WBC (Bld) 0.8 % Normal . [facility] Comment on above: Performed By: #### P T, CMP, PTT, LIPID, PAB, CBC, A1C WTH eA ####[address] Eosinophils (Bld) [#/Vol] 0.2 10*3/uL Normal 0.0-0.45 [facility] Comment on above: Performed By: #### P T, CMP, PTT, LIPID, PAB, CBC, A1C WT eA ####[address] Eosinophils/100 WBC (Bld) 1.7 % Normal . [facility] Comment on above: Performed By: #### P T, CMP, PTT, LIPID, PAB, CBC, A1C WT eA ####[place] [id number] [facility] Erythrocyte distribution width (RBC) [Ratio] 13.7 % Normal 12.0-14.8 [facility] Comment on above: Performed By: #### P T, CMP, PTT, LIPID, PAB, CBC, A1C WT eA ####[place] [id number] [facility] Hematocrit (Bld) [Volume fraction] 38.3 % Low 38.8-50.0 [facility] Comment on above: Performed By: #### P T, CMP, PTT, LIPID, PAB, CBC, A1C WTH eA ####[address] Hemoglobin (Bld) [Mass/Vol] 13.0 g/dL Normal 13.0-17.0 [facility] Comment on above: Performed By: #### P T, CMP, PTT, LIPID, PAB, CBC, A1C WTH eA ####[address] Lymphocytes (Bld) [#/Vol] 1.9 10*3/uL Normal 1.00-4.8 [facility] Comment on above: Performed By: #### P T, CMP, PTT, LIPID, PAB, CBC, A1C WTH eA ####[address] Lymphocytes/100 WBC (Bld) 15.0 % Normal . [facility] Comment on above: Performed By: #### P T, CMP, PTT, LIPID, PAB, CBC, A1C WTH eA ####[address] MCH (RBC) [Entitic mass] 29.9 pg Normal 27.5-35.2 [facility] Comment on above: Performed By: #### P T, CMP, PTT, LIPID, PAB, CBC, A1C WTH eA ####[address] MCV (RBC) [Entitic vol] 88.0 fL Normal 83.5-101 [facility] Comment on above: Performed By: #### P T, CMP, PTT, LIPID, PAB, CBC, A1C WTH eA ####[address] Mean Corpuscular HGB Conc 34.0 g/dL Normal 32.5-35.6 [facility] Comment on above: Performed By: #### P T, CMP, PTT, LIPID, PAB, CBC, A1C WTH eA ####[address] Monocytes (Bld) [#/Vol] 1.4 10*3/uL High 0.0-0.8 [facility] Comment on above: Performed By: #### P T, CMP, PTT, LIPID, PAB, CBC, A1C WTH eA ####[address] Monocytes/100 WBC (Bld) 10.9 % Normal . [facility] Comment on above: Performed By: #### P T, CMP, PTT, LIPID, PAB, CBC, A1C WTH eA ####[address] Neutrophils (Bld) [#/Vol] 9.1 10*3/uL High 1.8-7.7 [facility] Comment on above: Performed By: #### P T, CMP, PTT, LIPID, PAB, CBC, A1C WTH eA ####[address] Neutrophils/100 WBC (Bld) 71.6 % Normal . [facility] Comment on above: Performed By: #### P T, CMP, PTT, LIPID, PAB, CBC, A1C WTH eA ####[address] NRBC% 0.0 /100{WBC} Normal 0-0.5 [facility] Comment on above: Performed By: #### P T, CMP, PTT, LIPID, PAB, CBC, A1C WTH eA ####[address] Platelet mean volume (Bld) [Entitic vol] 8.6 fL Normal 6.6-10.1 [facility] Comment on above: Performed By: #### P T, CMP, PTT, LIPID, PAB, CBC, A1C WTH eA ####[address] Platelets (Bld) [#/Vol] 298 10*3/uL Normal 150-450 [facility] Comment on above: Performed By: #### P T, CMP, PTT, LIPID, PAB, CBC, A1C WTH eA ####[address] [address] [place] [id number] [facility] RBC (Bld) [#/Vol] 4.36 10*6/uL Normal 3.90-5.60 [facility] Comment on above: Performed By: #### P T, CMP, PTT, LIPID, PAB, CBC, A1C WTH eA ####[address] [address] [place] [id number] [facility] WBC (Bld) [#/Vol] 12.7 10*3/uL High 4.1-10.5 [facility] Comment on above: Performed By: #### P T, CMP, PTT, LIPID, PAB, CBC, A1C WT eA ####[address] Comprehensive Metabolic Pane neil 02-26-2023 Albumin [Mass/Vol] 3.0 g/dL Low 3.5-5.7 [facility] Comment on above: Order Comment: FASTI NG N Performed By: #### P T, CMP, PTT, LIPID, PAB, CBC, A1C WT eA ####[place] [id number] [facility] Albumin/Globulin [Mass ratio] 1.1 {ratio} Normal [facility] Comment on above: Order Comment: FASTI NG N Performed By: #### P T, CMP, PTT, LIPID, PAB, CBC, A1C WT eA ####[place] [id number] [facility] ALP [Catalytic activity/Vol] 75 U/L Normal 34-104 [facility] Comment on above: Order Comment: FASTI NG N Performed By: #### P T, CMP, PTT, LIPID, PAB, CBC, A1C WT eA ####[place] [id number] [facility] ALT [Catalytic activity/Vol] 14 U/L Normal 7-52 [facility] Comment on above: Order Comment: FASTI NG N Performed By: #### P T, CMP, PTT, LIPID, PAB, CBC, A1C WT eA ####[address] [place] [address] [facility] Anion gap [Moles/Vol] 11.1 mmol/L Normal 6.0-15.0 [facility] Comment on above: Order Comment: FASTI NG N Performed By: #### P T, CMP, PTT, LIPID, PAB, CBC, A1C WTH eA ####[place] [id number] [facility] AST [Catalytic activity/Vol] 15 U/L Normal 13-39 [facility] Comment on above: Order Comment: FASTI NG N Performed By: #### P T, CMP, PTT, LIPID, PAB, CBC, A1C WTH eA ####[place] [id number] [facility] Bilirubin [Mass/Vol] 1.0 mg/dL Normal 0.3-1.0 [facility] Comment on above: Order Comment: FASTI NG N Performed By: #### P T, CMP, PTT, LIPID, PAB, CBC, A1C WTH eA ####[address] Calcium [Mass/Vol] 8.3 mg/dL Low 8.6-10.3 [facility] Comment on above: Order Comment: FASTI NG N Performed By: #### P T, CMP, PTT, LIPID, PAB, CBC, A1C WTH eA ####[place] [id number] [facility] Chloride [Moles/Vol] 104 mmol/L Normal 98-107 [facility] Comment on above: Order Comment: FASTI NG N Performed By: #### P T, CMP, PTT, LIPID, PAB, CBC, A1C WTH eA ####[place] [id number] [facility] CO2 [Moles/Vol] 26.7 mmol/L Normal 21.0-31.0 [facility] Comment on above: Order Comment: FASTI NG N Performed By: #### P T, CMP, PTT, LIPID, PAB, CBC, A1C WTH eA ####[place] [id number] [facility] Creatinine [Mass/Vol] 1.14 mg/dL Significan t change down 0.70-1.30 [facility] Comment on above: Order Comment: FASTI NG N Performed By: #### P T, CMP, PTT, LIPID, PAB, CBC, A1C WTH eA ####[address] Creatinine Clr Calc Pharmacy 65.00 Normal [facility] Comment on above: Order Comment: FASTI NG N Performed By: #### P T, CMP, PTT, LIPID, PAB, CBC, A1C WT eA ####[place] [id number] [facility] GFR/1.73 sq M.predicted MDRD (S/P/Bld) [Vol rate/Area] mL/min/{1.73_m2} Normal [facility] Comment on above: Order Comment: FASTI NG N Performed By: #### P T, CMP, PTT, LIPID, PAB, CBC, A1C WT eA ####[place] [id number] [facility] Globulin (S) [Mass/Vol] 2.7 g/dL Normal [facility] Comment on above: Order Comment: FASTI NG N Performed By: #### P T, CMP, PTT, LIPID, PAB, CBC, A1C WT eA ####[place] [id number] [facility] Glucose [Mass/Vol] 123 mg/dL High 70-100 [facility] Comment on above: Order Comment: FASTI NG N Result Comment: [place] Glucose Reference Range is dependent on time and content of last meal. Glucose of more than 200 mg/dL in a nonstressed, ambulatory subject supports the diagnosis of Diabetes Mellitus. ADA recommended reference range Performed By: #### P T, CMP, PTT, LIPID, PAB, CBC, A1C WT eA ####[place] [id number] [facility] Potassium [Moles/Vol] 3.8 mmol/L Normal 3.5-5.1 [facility] Comment on above: Order Comment: FASTI NG N Performed By: #### P T, CMP, PTT, LIPID, PAB, CBC, A1C WTH eA ####[address] [address] [facility] Protein [Mass/Vol] 5.7 g/dL Low 6.4-8.9 [facility] Comment on above: Order Comment: FASTI NG N Performed By: #### P T, CMP, PTT, LIPID, PAB, CBC, A1C WTH eA ####[place] [id number] [facility] Sodium [Moles/Vol] 138 mmol/L Normal 136-145 [facility] Comment on above: Order Comment: FASTI NG N Performed By: #### P T, CMP, PTT, LIPID, PAB, CBC, A1C WT eA ####[place] [address] [address] [place] [id number] [facility] Urea nitrogen [Mass/Vol] 13 mg/dL Normal 7-25 [facility] Comment on above: Order Comment: FASTI NG N Performed By: #### P T, CMP, PTT, LIPID, PAB, CBC, A1C WTH eA ####[address] [address] [facility] ECG 12 lead ECGon 02-26-2023 ECG 12 lead ECG Normal [facility] Glucose Poct Glucometerson 1 Glucose [Mass/Vol] 224 mg/dL Normal [facility] Comment on above: Result Comment: [facility][note 3] Glucose Reference Range is dependent on time and content of last meal. Glucose of more than 200 mg/dL in a nonstressed, ambulatory subject supports the diagnosis of Diabetes Mellitus.PERFORMED BY:[address] [address] [place], [place] [phone] MEDICAL DIRECTORJOSEPH GARCIA M.D. Performed By: #### G LUANURAG ####Point of Care testing, Commemt1 Glu2: Cleaned Meter Normal [facility] Comment on above: Result Comment: PERF ORMED BY:[place] [address] [place] [phone] MEDICAL DIRECTORJOSEPH GARCIA M.D. Performed By: #### G LULS ####Point of Care testing, Glucose [Mass/Vol] 270 mg/dL Normal [facility] Comment on above: Result Comment: [place] om Glucose Reference Range is dependent on time and content of last meal. Glucose of more than 200 mg/dL in a nonstressed, ambulatory subject supports the diagnosis of Diabetes Mellitus. Performed By: #### G LULS ####Point of Care testing, Glucose [Mass/Vol] 135 mg/dL Normal [facility] Comment on above: Result Comment: [place] om Glucose Reference Range is dependent on time and content of last meal. Glucose of more than 200 mg/dL in a nonstressed, ambulatory subject supports the diagnosis of Diabetes Mellitus.PERFORMED BY:[address] [place], [place] [phone] MEDICAL DIRECTORJOSEPH GARCIA M.D. Performed By: #### G LULS ####Point of Care testing, Commemt1 Glu2: Cleaned Meter Normal [facility] Comment on above: Result Comment: PERF ORMED BY:[place] [address] [place], [place] [phone] MEDICAL DIRECTORJOSEPH GARCIA M.D. Performed By: #### G LULS ####Point of Care testing, Glucose [Mass/Vol] 134 mg/dL Normal [facility] Comment on above: Result Comment: [place] om Glucose Reference Range is dependent on [...] from glycated hemoglobin (Bld) [Mass/Vol] 160 mg/dL [facility] Gram Stainon 02-26-2023 Microscopic observation Gram stain Nom (Unsp spec) Comment Left 5th MPJ Gram Stain Result Rare White Blood Cells No Bacteria Seen PERFORMED BY: [facility] [address] [place] [address] PATHOLOGIST MARKETING SALES SUPERVISOR JOSEPH GARCIA M.D. Normal [facility] Comment on above: Performed By: #### G S, AERC ####[facility] [address] [place] [id number] [facility] Gram stain for investigation of transfusion reactionOrdered By: Rohan Han on 02-26-2023 Microscopic observation Gram stain Nom (Unsp spec) [facility] Microscopic observation Gram stain Nom (Unsp spec) [facility] Hemoglobin A1c percentageOrd ered By: Geo Thomas on 02-26-2023 HbA1c (Bld) [Mass fraction] 7.2 % High 4.3-5.6 [facility] Comment on above: Increased risk for d iabetes: 5.7 - 6.4diabetes: >6.4glycemic control for adults with diabetes: <7.0 Result Comment: Incr eased risk for diabetes: 5.7 - 6.4 diabetes: >6.4 glycemic control for adults with diabetes: <7.0 Performed By: #### P T, CMP, PTT, LIPID, PAB, CBC, A1C WTH eA ####[facility] [place] [id number] [facility] INR in Platelet poor plasma by Coagulation assayOrdered By: Geo Thomas on 02-26-2023 INR Coag (PPP) [Relative time] 1.0 {INR} Normal [facility] Comment on above: INR Therapeutic Rang [...] with mechanical heart valves: 3 - 4.5 Result Comment: INR Therapeutic Range A) Pre- [...] 3 - 4.5 Performed By: #### P T, CMP, PTT, LIPID, PAB, CBC, A1C WT eA ####[address] [address] [place] [address] [facility] Neil 02-26-2023 L Normal [facility] Lipid Panelon 02-26-2023 LDL Cholesterol,Calculated 39 mg/dL Normal 0-100 [facility] Comment on above: Order Comment: FASTI NG N Result Comment: LDL ATP III CLASSIFICATION LDL less than 100 mg/dL Optimal LDL 100-129 mg/dL Near or above optimal LDL 130-159 mg/dL Borderline high LDL 160-189 mg/dL High LDL greater than 189 mg/dL Very high Performed By: #### P T, CMP, PTT, LIPID, PAB, CBC, A1C WTH eA ####[place] [address] [place] [id number] [facility] Triglyceride w/Reflex 149 mg/dL Normal 0-149 [facility] Comment on above: Order Comment: FASTI NG N Result Comment: TRIG ATP III CLASSIFICATION TRIG less than 150 mg/dL Normal TRIG 150-199 mg/dL Borderline high TRIG 200-500 mg/dL High TRIG greater than 500 mg/dL Very high Standard traceable to the Center for Disease Conrtrol and Prevention (CDC) test method. Performed By: #### P T, CMP, PTT, LIPID, PAB, CBC, A1C WTH eA ####[place] [address] [place] [id number] [facility] VLDL CHOLESTEROL 29 mg/dL Normal [facility] Comment on above: Order Comment: FASTI NG N Performed By: #### P T, CMP, PTT, LIPID, PAB, CBC, A1C WTH eA ####[place] [address] [place] [id number] [facility] Partial Thromboplastin Timeo n 02-26-2023 aPTT Coag (Bld) [Time] 31.6 s Normal 25.1-36.5 [facility] Comment on above: Result Comment: A he matocrit value greater than 55% may lead to inaccurate results in coagulation testing. Patients having hematocrit values >55% require a special collection tube for coagulation studies. Please contact the laboratory at [phone] for redraw instructions.PERFORMED BY:[facility] [place], [place] [phone] MEDICAL DIRECTORJOSEPH GARCIA M.D. Performed By: #### P T, CMP, PTT, LIPID, PAB, CBC, A1C WT eA ####[address] [address] [place] [address] [facility] Prealbumin [Mass/volume] in Serum or PlasmaOrdered By: Geo Thomas on 02-26-2023 Prealbumin [Mass/Vol] 15.7 mg/dL Low 17.0-34.0 [facility] Comment on above: Order Comment: FASTI NG N Performed By: #### P T, CMP, PTT, LIPID, PAB, CBC, A1C WT eA ####[address] [address] [place] [address] [facility] Prothrombin time (PT)Ordered By: Geo Thomas on 02-26-2023 PT Coag (PPP) [Time] 12.3 s Normal 9.0-12.9 [facility] Comment on above: A hematocrit value g reater than 55% may lead to inaccurate results in coagulation testing. Patients having hematocrit values >55% require a special collection tube for coagulation studies. Please contact the laboratory at [phone] for redraw instructions. Result Comment: A he matocrit value greater than 55% may lead to inaccurate results in coagulation testing. Patients having hematocrit values >55% require a special collection tube for coagulation studies. Please contact the laboratory at [phone] for redraw instructions. Performed By: #### P T, CMP, PTT, LIPID, PAB, CBC, A1C WT eA ####[place] [address] [place] [id number] [facility] Serum or plasma high density lipoprotein (HDL) cholesterol measurementOrdered By: Geo Thomas on 02-26-2023 Cholesterol in HDL [Mass/Vol] 23 mg/dL Normal 23-92 [facility] Comment on above: HDL CHOL ATP-III CLA SSIFICATION Cardiovascular RiskHDL > or equal to 60 mg/dL LOWHDL < 40 mg/dL HIGH Order Comment: FASTI NG N Result Comment: HDL CHOL ATP-III CLASSIFICATION Cardiovascular Risk HDL > or equal to 60 mg/dL LOW HDL < 40 mg/dL HIGH Performed By: #### P T, CMP, PTT, LIPID, PAB, CBC, A1C [facility] eA ####[facility] [place] [address] [facility] Serum or plasma total choles terol/high density lipoprotein (HDL) cholesterol mass ratOrdered By: Geo Thomas on 02-26-2023 Cholesterol.total/Chol esterol in HDL [Mass ratio] 4.0 {ratio} Normal <5.0 [facility] Comment on above: Order Comment: BABATUNDE NG N Result Comment: PERF ORMED BY:[address] [place], [place] [phone] MEDICAL DIRECTORJOSEPH GARCIA M.D. Performed By: #### P T, CMP, PTT, LIPID, PAB, CBC, A1C [facility] eA ####[facility] [place] [address] [facility] Triglyceride [Mass/volume] i n Serum or PlasmaOrdered By: Geo Thomas on 02-26-2023 Triglyceride [Mass/Vol] 149 mg/dL 0-149 [facility] Comment on above: TRIG ATP III CLASSIF ICATIONTRIG less than 150 mg/dL NormalTRIG 150-199 mg/dL Borderline highTRIG 200-500 mg/dL High TRIG greater than 500 mg/dL Very highStandard traceable to the Center for Disease Conrtrol and Prevention (CDC) test method. Vancomycin [Mass/volume] in Serum or Plasma --peakOrdered By: Brennan Cerrato on 02-26-2023 Vancomycin peak [Mass/Vol] 40.5 ug/mL 20.0-40.0 [facility] Comment on above: Last dose: - Vancomycin,Peakon 02-26-2023 Vancomycin,Peak 40.5 ug/mL High 20.0-40.0 [facility] Comment on above: Order Comment: Comme nt ?DRAW 1 HOUR AFTER INFUSION COMPLETES Date of last dose?: 20230226 Time of last dose?: 1500 Result Comment: Last dose: -PERFORMED BY:[place] [address] [place] [id number] MEDICAL SILVIA GARCIA M.D. Performed By: #### V ANCP ####[facility] [place] [address] [facility] XR foot LT 2Von 02-26-2023 XR foot LT 2V Normal [facility] Glucose Poct Glucometerson 1 Glucose [Mass/Vol] 172 mg/dL Normal [facility] Comment on above: Result Comment: [place] Glucose Reference Range is dependent on time and content of last meal. Glucose of more than 200 mg/dL in a nonstressed, ambulatory subject supports the diagnosis of Diabetes Mellitus.PERFORMED BY:[address] [place] [address], [place] [phone] MEDICAL SILVIA GARCIA M.D. Performed By: #### G LULS ####Point of Care testing, Glucose [Mass/Vol] 208 mg/dL Normal [facility] Comment on above: Result Comment: [place] Glucose Reference Range is dependent on time and content of last meal. Glucose of more than 200 mg/dL in a nonstressed, ambulatory subject supports the diagnosis of Diabetes Mellitus.PERFORMED BY:[place] [address]Ñ[place], [place] [phone] MEDICAL SILVIA GARCIA M.D. Performed By: #### G LULS ####Point of Care testing, Glucose [Mass/Vol] 85 mg/dL Normal [facility] Comment on above: Result Comment: [place] Glucose Reference Range is dependent on time and content of last meal. Glucose of more than 200 mg/dL in a nonstressed, ambulatory subject supports the diagnosis of Diabetes Mellitus.PERFORMED BY:[place] [address] [place] [id number] MEDICAL SILVIA GARCIA M.D. Performed By: #### G LULS ####Point of Care testing, Glucose [Mass/Vol] 86 mg/dL Normal [facility] Comment on above: Result Comment: [facility][note 3] Glucose Reference Range is dependent on time and content of last meal. Glucose of more than 200 mg/dL in a nonstressed, ambulatory subject supports the diagnosis of Diabetes Mellitus.PERFORMED BY:[address] [address] [address] ZAMANLUZ [place], [place] [phone] MEDICAL DIRECTORJOSEPH GARCIA M.D. Performed By: #### G LUANURAG ####Point of Care testing, MR foot LT wo conon 02-26-20 23 MR foot LT wo con Normal [facility] Vancomycin,Peakon 02-25-2023 Vancomycin,Peak 21.1 ug/mL Normal 20.0-40.0 [facility] Comment on above: Order Comment: Comme nt ?DRAW 1 HOUR AFTER INFUSION COMPLETES Date of last dose?: 20230223 Time of last dose?: 1300 Result Comment: Last dose: -PERFORMED BY:[address] [address] [address]IV[address] ZAMANLUZ [place], [place] [phone] MEDICAL DIRECTORJOSEPH GARCIA M.D. Performed By: #### V ANCP ####[address] [address] [facility] Vancomycin,Troughon 02-26-20 23 Vancomycin,Trough 13.7 ug/mL Normal 10.0-20.0 [facility] Physician [facility] Comment on above: Order Comment: Time of next dose? 1000 Date of last dose?: 20230223 Time of last dose?: 0000 Result Comment: Last dose: -PERFORMED BY:[address] [address] [address]IV[address] ZAMANLUZ [place], [place] [phone] MEDICAL DIRECTORJOSEPH GARCIA M.D. Performed By: #### V ANCT ####[address] [address] [facility] Basic Metabolic Panelon 10 Anion gap [Moles/Vol] 8.6 mmol/L Normal 6.0-15.0 [facility] Comment on above: Performed By: #### B MP, CBCNO ####[address] [place] [address] [facility] Calcium [Mass/Vol] 8.1 mg/dL Low 8.6-10.3 The [facility] Comment on above: Performed By: #### B STARLA, CBCNO ####[address] [place] [id number] [facility] Chloride [Moles/Vol] 104 mmol/L Normal 98-107 [facility] Comment on above: Performed By: #### B STARLA, CBCNO ####[place] [id number] [facility] CO2 [Moles/Vol] 27.2 mmol/L Normal 21.0-31.0 [facility] Comment on above: Performed By: #### B STARLA, CBCNO ####[address] [place] [id number] [facility] Creatinine [Mass/Vol] 0.61 mg/dL Low 0.70-1.30 [facility] Comment on above: Performed By: #### B STARLA, CBCNO ####[place] [id number] [facility] Creatinine Clr Calc Pharmacy 98.52 Normal [facility] Comment on above: Result Comment: PERF ORMED BY:[address] LACUCOLUZ [place], [place] [phone] MEDICAL SILVIA GARCIA M.D. Performed By: #### B STARLA, CBCNO ####[place] [id number] [facility] GFR/1.73 sq M.predicted MDRD (S/P/Bld) [Vol rate/Area] mL/min/{1.73_m2} Normal [facility] Comment on above: Performed By: #### B STARLA, CBCNO ####[place] [id number] [facility] Glucose [Mass/Vol] 162 mg/dL High 70-100 [facility] Comment on above: Result Comment: [place] Glucose Reference Range is dependent on time and content of last meal. Glucose of more than 200 mg/dL in a nonstressed, ambulatory subject supports the diagnosis of Diabetes Mellitus. ADA recommended reference range Performed By: #### B MP, CBCNO ####[facility] [place] [address] [facility] Potassium [Moles/Vol] 3.8 mmol/L Normal 3.5-5.1 [facility] Comment on above: Performed By: #### B MP, CBCNO ####[facility] [place] [address] [facility] Sodium [Moles/Vol] 136 mmol/L Normal 136-145 [facility] Comment on above: Performed By: #### B MP, CBCNO ####[facility] [place] [id number] [facility] Urea nitrogen [Mass/Vol] 9 mg/dL Normal 7-25 [facility] Comment on above: Performed By: #### B MP, CBCNO ####[place] [id number] [facility] Glucose Poct Glucometerson 1 Glucose [Mass/Vol] 201 mg/dL Normal [facility] Comment on above: Result Comment: [place] om Glucose Reference Range is dependent on time and content of last meal. Glucose of more than 200 mg/dL in a nonstressed, ambulatory subject supports the diagnosis of Diabetes Mellitus.PERFORMED BY:[address] [address] [address] LATamikoTracyLUZ [place], [place] [phone] MEDICAL DIRECTORJOSEPH GARCIA M.D. Performed By: #### G LULS ####Point of Care testing, Commemt1 Glu2: Cleaned Meter Normal [facility] Comment on above: Result Comment: PERF ORMED BY:[address] [address] [address]IV[address] LUZ [place], [place] [phone] MEDICAL DIRECTORJOSEPH GARCIA M.D. Performed By: #### G LULS ####Point of Care testing, Glucose [Mass/Vol] 141 mg/dL Normal [facility] Comment on above: Result Comment: [place] om Glucose Reference Range is dependent on time and content of last meal. Glucose of more than 200 mg/dL in a nonstressed, ambulatory subject supports the diagnosis of Diabetes Mellitus. Performed By: #### G LULS ####Point of Care testing, Glucose [Mass/Vol] 169 mg/dL Normal [facility] Comment on above: Result Comment: [facility][note 3] Glucose Reference Range is dependent on time and content of last meal. Glucose of more than 200 mg/dL in a nonstressed, ambulatory subject supports the diagnosis of Diabetes Mellitus.PERFORMED BY:[address] LATamikoTracyLUZ [place], [place] [phone] MEDICAL DIRECTORJOSEPH GARCIA M.D. Performed By: #### G LULS ####Point of Care testing, Glucose [Mass/Vol] 169 mg/dL Normal [facility] Comment on above: Result Comment: [facility][note 3] Glucose Reference Range is dependent on time and content of last meal. Glucose of more than 200 mg/dL in a nonstressed, ambulatory subject supports the diagnosis of Diabetes Mellitus.PERFORMED BY:[address] SHALINITracyLUZ [place], [place] [phone] MEDICAL DIRECTORJOSEPH GARCIA M.D. Performed By: #### G LULS ####Point of Care testing, Hemogram CBC Without Diffon 02-24-2023 Erythrocyte distribution width (RBC) [Ratio] 13.8 % Normal 12.0-14.8 [facility] Comment on above: Performed By: #### B STARLA, CBCNO ####[place] [id number] [facility] Hematocrit (Bld) [Volume fraction] 36.5 % Low 38.8-50.0 [facility] Comment on above: Performed By: #### B MP, CBCNO ####[place] [id number] [facility] Hemoglobin (Bld) [Mass/Vol] 12.2 g/dL Low 13.0-17.0 [facility] Comment on above: Performed By: #### B MP, CBCNO ####[place] [id number] [facility] MCH (RBC) [Entitic mass] 29.6 pg Normal 27.5-35.2 [facility] Comment on above: Performed By: #### B MP, CBCNO ####[place] [id number] [facility] MCV (RBC) [Entitic vol] 88.4 fL Normal 83.5-101 [facility] Comment on above: Performed By: #### B MP, CBCNO ####[place] [id number] [facility] Mean Corpuscular HGB Conc 33.5 g/dL Normal 32.5-35.6 [facility] Comment on above: Performed By: #### B MP, CBCNO ####[address] Platelet mean volume (Bld) [Entitic vol] 8.2 fL Normal 6.6-10.1 [facility] Comment on above: Result Comment: PERF ORMED BY:[address] LU[address] [place], [place] [phone] MEDICAL DIRECTORJOSEPH GARCIA M.D. Performed By: #### B MP, CBCNO ####[address] Platelets (Bld) [#/Vol] 290 10*3/uL Normal 150-450 [facility] Comment on above: Performed By: #### B MP, CBCNO ####[place] [id number] [facility] RBC (Bld) [#/Vol] 4.13 10*6/uL Normal 3.90-5.60 [facility] Comment on above: Performed By: #### B MP, CBCNO ####[address] WBC (Bld) [#/Vol] 11.9 10*3/uL High 4.1-10.5 [facility] Comment on above: Performed By: #### B MP, CBCNO ####[address] Alanine aminotransferase [En zymatic activity/volume] in Serum or PlasmaOrdered By: Rico Carr on 02-23-2023 ALT [Catalytic activity/Vol] 31 U/L Normal 7-52 [facility] Comment on above: Performed By: #### C UBLD, CMP, CBC, LACTIC ####[place] [id number] [facility] Albumin [Mass/volume] in Ser um or Plasma by Bromocresol green (BCG) dye binding methoOrdered By: Rico Carr on 02-23-2023 Albumin BCG dye [Mass/Vol] 3.6 g/dL 3.5-5.7 [facility] Alkaline phosphatase [Enzyma tic activity/volume] in Serum or PlasmaOrdered By: Rico Carr on 02-23-2023 ALP [Catalytic activity/Vol] 94 U/L Normal 34-104 [facility] Comment on above: Performed By: #### C UBLD, CMP, CBC, LACTIC ####[place] [id number] [facility] Aspartate aminotransferase [ Enzymatic activity/volume] in Serum or PlasmaOrdered By: Rico Carr on 02-23-2023 AST [Catalytic activity/Vol] 16 U/L Normal 13-39 [facility] Comment on above: Performed By: #### C UBLD, CMP, CBC, LACTIC ####[place] [id number] [facility] Automated basophil %Ordered By: Rico Carr on 02-23-2023 Basophils/100 WBC (Bld) 0.6 % Normal . [facility] Comment on above: Performed By: #### C UBLD, CMP, CBC, LACTIC ####[place] [id number] [facility] Automated basophil countOrde red By: Rico Carr on 02-23-2023 Basophils (Bld) [#/Vol] 0.1 10*3/uL Normal 0.0-0.2 [facility] Comment on above: Result Comment: PERF ORMED BY:[address] [place], [place] [phone] MEDICAL DIRECTORJOSEPH GARCIA M.D. Performed By: #### C UBLD, CMP, CBC, LACTIC ####[address] Automated blood monocyte cou ntOrdered By: Rico Carr on 02-23-2023 Monocytes (Bld) [#/Vol] 1.3 10*3/uL High 0.0-0.8 [facility] Comment on above: Performed By: #### C UBLD, CMP, CBC, LACTIC ####[address] Automated eosinophil %Ordere d By: Rico Carr on 02-23-2023 Eosinophils/100 WBC (Bld) 1.1 % Normal . [facility] Comment on above: Performed By: #### C UBLD, CMP, CBC, LACTIC ####[address] Automated eosinophil countOr dered By: Rico Carr on 02-23-2023 Eosinophils (Bld) [#/Vol] 0.1 10*3/uL Normal 0.0-0.45 [facility] Comment on above: Performed By: #### C UBLD, CMP, CBC, LACTIC ####[address] Automated monocyte %Ordered By: Rico Carr on 02-23-2023 Monocytes/100 WBC (Bld) 10.0 % Normal . [facility] Comment on above: Performed By: #### C UBLD, CMP, CBC, LACTIC ####[address] Automated neutrophil %Ordere d By: Rico Carr on 02-23-2023 Neutrophils/100 WBC (Bld) 69.6 % Normal . [facility] Comment on above: Performed By: #### C UBLD, CMP, CBC, LACTIC ####[address] Bacterial blood cultureOrder ed By: Rico Carr on 10-01-2023 Bacteria identified Cx Nom (Bld) NO GROWTH 5 DAYS [facility] Bacteria identified Cx Nom (Bld) NO GROWTH 5 DAYS [facility] Bilirubin.total [Mass/volume ] in Serum or PlasmaOrdered By: Rico Carr on 02-23-2023 Bilirubin [Mass/Vol] 0.9 mg/dL Normal 0.3-1.0 [facility] Comment on above: Performed By: #### C UBLD, CMP, CBC, LACTIC ####[place] [id number] [facility] Blood Cultureon 02-23-2023 Bacteria identified Cx Nom (Bld) NO GROWTH 5 DAYS PERFORMED BY: [place] [address] PATHOLOGIST MARKETING SALES SUPERVISOR JOSEPH GARCIA M.D. Normal [facility] Comment on above: Performed By: #### C UBLD, CMP, CBC, LACTIC ####[place] [id number] [facility] Bacteria identified Cx Nom (Bld) NO GROWTH 5 DAYS PERFORMED BY: [facility] [address] [id number] PATHOLOGIST MARKETING SALES SUPERVISOR JOSEPH GARCIA M.D. Normal [facility] Comment on above: Performed By: #### C UBLD, CMP, CBC, LACTIC ####[place] [id number] [facility] Calcium [Mass/volume] in Ser um or PlasmaOrdered By: Rico Carr on 02-23-2023 Calcium [Mass/Vol] 8.7 mg/dL Normal 8.6-10.3 [facility] Comment on above: Performed By: #### C UBLD, CMP, CBC, LACTIC ####[place] [id number] [facility] Carbon dioxide, total [Moles /volume] in Serum or PlasmaOrdered By: Rico Carr on 02-23-2023 CO2 [Moles/Vol] 25.0 mmol/L Normal 21.0-31.0 [facility] Comment on above: Performed By: #### C UBLD, CMP, CBC, LACTIC ####[place] [id number] [facility] Chloride [Moles/volume] in S rene or PlasmaOrdered By: Rico Carr on 02-23-2023 Chloride [Moles/Vol] 101 mmol/L Normal 98-107 [facility] Comment on above: Performed By: #### C UBLD, CMP, CBC, LACTIC ####[address] Complete Blood Count Auto Di ffon 02-23-2023 Mean Corpuscular HGB Conc 34.1 g/dL Normal 32.5-35.6 [facility] Comment on above: Performed By: #### C UBLD, CMP, CBC, LACTIC ####[address] Monocytes/100 WBC (Bld) 18.95 % Normal 0.00-20.00 [facility] Comment on above: Performed By: #### C UBLD, CMP, CBC, LACTIC ####[address] NRBC% 0.1 /100{WBC} Normal 0-0.5 [facility] Comment on above: Performed By: #### C UBLD, CMP, CBC, LACTIC ####[address] Comprehensive Metabolic Pane neil 02-23-2023 Albumin [Mass/Vol] 3.6 g/dL Normal 3.5-5.7 [facility] Comment on above: Performed By: #### C UBLD, CMP, CBC, LACTIC ####[address] Creatinine Clr Calc Pharmacy 97.63 Normal [facility] Comment on above: Result Comment: PERF ORMED BY:[address] [place] [place], [place] [phone] MEDICAL SILVIA GARCIA M.D. Performed By: #### C UBLD, CMP, CBC, LACTIC ####[address] [place] [address] [place] GFR/1.73 sq M.predicted MDRD (S/P/Bld) [Vol rate/Area] mL/min/{1.73_m2} Normal [facility] Comment on above: Performed By: #### C UBLD, CMP, CBC, LACTIC ####[address] Creatinine [Mass/volume] in Serum or PlasmaOrdered By: Rico Carr on 02-23-2023 Creatinine [Mass/Vol] 0.74 mg/dL Normal 0.70-1.30 [facility] Comment on above: Performed By: #### C UBLD, CMP, CBC, LACTIC ####[address] Erythrocyte distribution wid th [Ratio] by Automated countOrdered By: Rico Crar on 02-23-2023 Erythrocyte distribution width (RBC) [Ratio] 14.0 % Normal 12.0-14.8 [facility] Comment on above: Performed By: #### C UBLD, CMP, CBC, LACTIC ####[address] Erythrocytes [#/volume] in B lood by Automated countOrdered By: Rico Carr on 02-23-2023 RBC (Bld) [#/Vol] 4.61 10*6/uL Normal 3.90-5.60 [facility] Comment on above: Performed By: #### C UBLD, CMP, CBC, LACTIC ####[address] Glucose [Mass/volume] in Ser um or PlasmaOrdered By: Rico Carr on 02-23-2023 Glucose [Mass/Vol] 188 mg/dL High 70-100 [facility] Comment on above: ADA recommended refe rence rangeRandom Glucose Reference Range is dependent on time and content of last meal. Glucose of more than 200 mg/dL in a nonstressed, ambulatory subject supports the diagnosis of Diabetes Mellitus. Result Comment: [place] om Glucose Reference Range is dependent on time and content of last meal. Glucose of more than 200 mg/dL in a nonstressed, ambulatory subject supports the diagnosis of Diabetes Mellitus. ADA recommended reference range Performed By: #### C UBLD, CMP, CBC, LACTIC ####[place] [address] [place] [id number] [facility] Hematocrit [Volume Fraction] of Blood by Automated countOrdered By: Rico Carr on 02-23-2023 Hematocrit (Bld) [Volume fraction] 40.6 % Normal 38.8-50.0 [facility] Comment on above: Performed By: #### C UBLD, CMP, CBC, LACTIC ####[address] [address] [facility] Hemoglobin [Mass/volume] in BloodOrdered By: Rico Carr on 02-23-2023 Hemoglobin (Bld) [Mass/Vol] 13.8 g/dL Normal 13.0-17.0 [facility] Comment on above: Performed By: #### C UBLD, CMP, CBC, LACTIC ####[place] [id number] [facility] Lactate [Moles/volume] in Se rum or PlasmaOrdered By: Rico Carr on 02-23-2023 Lactate [Moles/Vol] 1.9 mmol/L 0.5-2.2 [facility] Lactate [Moles/Vol] 2.4 mmol/L Off scale high 0.5-2.2 [facility] Comment on above: Critical Result : Ca lled to and read back by: SIRISHA HOPE/ER at: 02/23/2023 12:53:26 by:[id number] Result Comment: Crit ical Result : Called to and read back by: SIRISHA HOPE/ER at: 02/23/2023 12:53:26 by:[id number] BY:[address] [address] [address] [place], [place] [phone] MEDICAL DIRECTORJOSEPH GARCIA M.D. Performed By: #### C UBLD, CMP, CBC, LACTIC ####[address] [address] [place] Lactic Acid Reflexon 023 Lactic Acid Reflex 1.9 mmol/L Normal 0.5-2.2 [facility] Comment on above: Result Comment: PERF ORMED BY:[address] [place]UÑ[place]DAVEN[place], [place] [phone] MEDICAL DIRECTORJOSEPH GARCIA M.D. Performed By: #### L ACTIC RFX ####[place] [id number] [facility] Leukocytes [#/volume] correc jewel for nucleated erythrocytes in Blood by Automated counOrdered By: Rico Carr on 02-23-2023 WBC corrected for nucl RBC Auto (Bld) [#/Vol] 13.0 10*3/uL 4.1-10.5 [facility] Leukocytes [#/volume] in Blo od by Automated countOrdered By: Rico Carr on 02-23-2023 WBC (Bld) [#/Vol] 13.0 10*3/uL High 4.1-10.5 [facility] Comment on above: Performed By: #### C UBLD, CMP, CBC, LACTIC ####[place] [id number] [facility] Lymphocytes [#/volume] in Bl ood by Automated countOrdered By: Rico Carr on 02-23-2023 Lymphocytes (Bld) [#/Vol] 2.4 10*3/uL Normal 1.00-4.8 [facility] Comment on above: Performed By: #### C UBLD, CMP, CBC, LACTIC ####[place] [id number] [facility] Lymphocytes/100 leukocytes i n Blood by Automated countOrdered By: Rico Carr on 02-23-2023 Lymphocytes/100 WBC (Bld) 18.7 % Normal . [facility] Comment on above: Performed By: #### C UBLD, CMP, CBC, LACTIC ####[place] [id number] [facility] MCH [Entitic mass] by Automa jewel countOrdered By: Rico Carr on 02-23-2023 MCH (RBC) [Entitic mass] 30.0 pg Normal 27.5-35.2 [facility] Comment on above: Performed By: #### C UBLD, CMP, CBC, LACTIC ####[address] MCHC Auto (RBC) [Mass/Vol]Or dered By: Rico Carr on 02-23-2023 MCHC (RBC) [Mass/Vol] 34.1 g/dL 32.5-35.6 [facility] MCV [Entitic volume] by Auto mated countOrdered By: Rico Carr on 02-23-2023 MCV (RBC) [Entitic vol] 88.1 fL Normal 83.5-101 [facility] Comment on above: Performed By: #### C UBLD, CMP, CBC, LACTIC ####[address] Monocyte distribution width [Entitic volume] in Blood by AutomatedOrdered By: Rico Carr on 02-23-2023 Monocyte distribution width Auto (Bld) [Entitic vol] 18.95 % 0.00-20.00 [facility] Neutrophils [#/volume] in Bl ood by Automated countOrdered By: Rico Carr on 02-23-2023 Neutrophils (Bld) [#/Vol] 9.0 10*3/uL High 1.8-7.7 [facility] Comment on above: Performed By: #### C UBLD, CMP, CBC, LACTIC ####[address] No Panel InformationOrdered By: Rico Carr on 02-23-2023 Estimated GFR (CKD-EPI) > 60.0 mL/Min [facility] Creatinine Clearance (Chem 97.63 [facility] Nucleated erythrocytes [Pres ence] in Blood by Automated countOrdered By: Rico Carr on 02-23-2023 Nucleated RBC Auto Ql (Bld) 0.1 /100{WBC} 0-0.5 [facility] Platelet mean volume [Entiti c volume] in Blood by Automated countOrdered By: Rico Carr on 02-23-2023 Platelet mean volume (Bld) [Entitic vol] 8.6 fL Normal 6.6-10.1 [facility] Comment on above: Performed By: #### C UBLD, CMP, CBC, LACTIC ####[address] Platelets [#/volume] in Bloo d by Automated countOrdered By: Rico Carr on 02-23-2023 Platelets (Bld) [#/Vol] 363 10*3/uL Normal 150-450 [facility] Comment on above: Performed By: #### C UBLD, CMP, CBC, LACTIC ####[address] Potassium [Moles/volume] in Serum or PlasmaOrdered By: Rico Carr on 02-23-2023 Potassium [Moles/Vol] 3.8 mmol/L Normal 3.5-5.1 [facility] Comment on above: Performed By: #### C UBLD, CMP, CBC, LACTIC ####[address] Protein [Mass/volume] in Ser um or PlasmaOrdered By: Rico Carr on 02-23-2023 Protein [Mass/Vol] 7.0 g/dL Normal 6.4-8.9 [facility] Comment on above: Performed By: #### C UBLD, CMP, CBC, LACTIC ####[address] Serum globulin measurement b y calculation (mass/volume)Ordered By: Rico Carr on 02-23-2023 Globulin (S) [Mass/Vol] 3.4 g/dL [facility] Comment on above: Performed By: #### C UBLD, CMP, CBC, LACTIC ####[address] Serum or plasma albumin/glob ulin mass ratioOrdered By: Rico Carr on 02-23-2023 Albumin/Globulin [Mass ratio] 1.1 {ratio} [facility] Comment on above: Performed By: #### C UBLD, CMP, CBC, LACTIC ####[place] [id number] [facility] Serum or plasma anion gap de terminationOrdered By: Rico Carr on 02-23-2023 Anion gap [Moles/Vol] 10.8 mmol/L Normal 6.0-15.0 [facility] Comment on above: Performed By: #### C UBLD, CMP, CBC, LACTIC ####[place] [id number] [facility] Sodium [Moles/volume] in Ser um or PlasmaOrdered By: Rico Carr on 02-23-2023 Sodium [Moles/Vol] 133 mmol/L Low 136-145 [facility] Comment on above: Performed By: #### C UBLD, CMP, CBC, LACTIC ####[place] [id number] [facility] Urea nitrogen [Mass/volume] in Serum or PlasmaOrdered By: Rico Carr on 02-23-2023 Urea nitrogen [Mass/Vol] 13 mg/dL Normal 7-25 [facility] Comment on above: Performed By: #### C UBLD, CMP, CBC, LACTIC ####[place] [id number] [facility] XR foot LT min 3V*on 023 XR foot LT min 3V* Normal [facility] US UNI ankle/arm indiceson 0 02-03-2023 US UNI ankle/arm indices Normal [facility] Creatinineon 01-13-2023 Creatinine Clr Calc Pharmacy 97.20 Normal [facility] Comment on above: Result Comment: PERF ORMED BY:[address] [place], [place] [phone] MEDICAL DIRECTORJOSEPH GARCIA M.D. Performed By: #### B UN, CREAT ####[place] [id number] [facility] GFR/1.73 sq M.predicted MDRD (S/P/Bld) [Vol rate/Area] mL/min/{1.73_m2} Normal [facility] Comment on above: Performed By: #### B CURTIS, CREAT ####[facility] [place] [id number] [facility] Creatinine [Mass/volume] in Serum or PlasmaOrdered By: Dhruv Bautista on 01-13-2023 Creatinine [Mass/Vol] 0.74 mg/dL Normal 0.70-1.30 [facility] Comment on above: Performed By: #### B CURTIS, CREAT ####[facility] [id number] [place] [id number] [facility] No Panel InformationOrdered By: Dhruv Bautista on 01-13-2023 Estimated GFR (CKD-EPI) > 60.0 mL/Min [facility] Creatinine Clearance (Chem 97.20 [facility] Urea nitrogen [Mass/volume] in Serum or PlasmaOrdered By: Dhruv Bautista on 01-13-2023 Urea nitrogen [Mass/Vol] 10 mg/dL Normal 7-25 [facility] Comment on above: Performed By: #### B CURTIS, CREAT ####[facility] [id number] [facility] A1C HEMOGLOBINon 07-24-2022 HbA1c (Bld) [Mass fraction] 9.0 % [employer] Other Creatinine [Mass/volume] in UrineOrdered By: Louise Sotelo on 07-24-2022 Creatinine (U) [Mass/Vol] 155.9 mg/dL [facility] Comment on above: No reference range e stablished Glucose - FINGER STICKon Glucose [Mass/Vol] 162 mg/dL [employer] Other HbA1c (Bld) [Mass fraction]o n 07-24-2022 A1C HEMOGLOBIN [employer] Other Microalbumin [Mass/volume] i n UrineOrdered By: Louise Sotelo on 07-24-2022 Albumin DL <= 20 mg/L (U) [Mass/Vol] 3.5 mg/dL 0.0-1.8 [facility] Urine microalbumin/creatinin e mass ratioOrdered By: Louise Sotelo on 07-24-2022 Albumin/Creatinine DL <= 20 mg/L (U) [Mass ratio] 22.0 mg/g 0.0-30.0 [facility] Comment on above: 30-300 mg/g indicate s an increased risk for diabetic nephropathy. Greater than 300 mg/g is consistent with clinical nephropathy. (Am. J. Kidney Disease 1995, 25:107) POINT OF CARE GLUCOSEon 06-27 Glucose [Mass/Vol] 156 mg/dL Critically high 74-106 [facility] Comment on above: Performed By: #### P OCGLUC #### [facility] [address] [id number] [address] Daniel Sosa A1C HEMOGLOBINon 02-06-2022 HbA1c (Bld) [Mass fraction] 8.5 % [employer] Other Glucose - FINGER STICKon Glucose [Mass/Vol] 211 mg/dL [employer] Other HbA1c (Bld) [Mass fraction]o n 02-06-2022 A1C HEMOGLOBIN [employer] Other A1C HEMOGLOBINon 08-23-2021 HbA1c (Bld) [Mass fraction] 11 % [employer] Other Glucose - FINGER STICKon Glucose [Mass/Vol] 266 mg/dL [employer] Other HbA1c (Bld) [Mass fraction]o n 08-23-2021 A1C HEMOGLOBIN [employer] Other Glucose - FINGER STICKon Glucose [Mass/Vol] 271 mg/dL [employer] Other A1C HEMOGLOBINon 02-22-2021 HbA1c (Bld) [Mass fraction] 11.4 % [employer] Other Glucose - FINGER STICKon Glucose [Mass/Vol] 282 mg/dL [employer] Other HbA1c (Bld) [Mass fraction]o n 02-22-2021 A1C HEMOGLOBIN [employer] Other Albumin [Mass/volume] in Ser um or Plasmaon 12-29-2019 Albumin [Mass/Vol] 3.8 g/dL 3.2-5.5 [facility] Alkaline phosphatase [Enzyma tic activity/volume] in Serum or Plasmaon 12-29-2019 ALP [Catalytic activity/Vol] 87 U/L 32-92 [facility] Aspartate aminotransferase [ Enzymatic activity/volume] in Serum or Plasmaon 12-29-2019 AST [Catalytic activity/Vol] 20 U/L 10-42 [facility] Bilirubin.total [Mass/volume ] in Serum or Plasmaon 12-29-2019 Bilirubin [Mass/Vol] 0.6 mg/dL 0.3-1.2 [facility] Calcium [Mass/volume] in Ser um or Plasmaon 12-29-2019 Calcium [Mass/Vol] 9.5 mg/dL 8.2-10.2 [facility] Carbon dioxide, total [Moles /volume] in Serum or Plasmaon 12-29-2019 CO2 [Moles/Vol] 23.8 mmol/L 22.0-30.0 [facility] Chloride [Moles/volume] in S rene or Plasmaon 12-29-2019 Chloride [Moles/Vol] 95 mmol/L 95-114 [facility] Cholesterol [Mass/volume] in Serum or Plasmaon 12-29-2019 Cholesterol [Mass/Vol] 235 mg/dL 140-200 [facility] Comment on above: Chol less than 200 m g/dl low riskChol 201-239 mg/dl borderline riskChol 240 mg/dl and greater high risk Cholesterol in LDL Calc [Mas s/Vol]on 12-29-2019 Cholesterol in LDL [Mass/Vol] TNP [facility] Comment on above: Test not performed Cholesterol in LDL [Mass/vol ume] in Serum or Plasmaon 12-29-2019 Cholesterol in LDL [Mass/Vol] 126 mg/dL 0-100 [facility] Comment on above: LDL ATP III CLASSIFI CATIONLDL less than 100 mg/dL OptimalLDL 100-129 mg/dL Near or above optimalLDL 130-159 mg/dL Borderline highLDL 160-189 mg/dL HighLDL greater than 189 mg/dL Very high Cholesterol in VLDL Calc [Ma ss/Vol]on 12-29-2019 Cholesterol in VLDL [Mass/Vol] TNP [facility] Comment on above: Test not performed Creatinine and Glomerular fi ltration rate.predicted panel (S/P/Bld)on 12-29-2019 Creatinine [Mass/Vol] 0.72 mg/dL 0.64-1.27 [facility] Estimated glomerular filtrat ion rate (GFR) non- Americanon 12-29-2019 GFR/1.73 sq M.predicted among non-blacks MDRD (S/P/Bld) [Vol rate/Area] mL/min/{1.73_m2} [facility] Globulin Calc (S) [Mass/Vol] on 12-29-2019 Globulin (S) [Mass/Vol] 3.1 g/dL [facility] Glucose [Mass/volume] in Ser um or Plasmaon 12-29-2019 Glucose [Mass/Vol] 213 mg/dL 70-100 [facility] Comment on above: ADA recommended refe rence rangeRandom Glucose Reference Range is dependent on time and content of last meal. Glucose of more than 200 mg/dL in a nonstressed, ambulatory subject supports the diagnosis of Diabetes Mellitus. Laboratory - Chemistry and C hemistry - challengeon 12-29-2019 GFR/1.73 sq M.predicted MDRD (S/P/Bld) [Vol rate/Area] mL/min/{1.73_m2} [facility] Comment on above: GFR estimated refere nce range: According to KDOQI guidelines, <60 ml/min/1.73m2 is sufficient to diagnose a patient with chronic kidney disease. No Panel Informationon 12-28 25-Hydroxy Vitamin D Total 21.4 ng/mL 30-100 [facility] Comment on above: VITAMIN D STATUS 25( OH)VITAMIN D RANGE (ng/mL) Deficient <20 Insufficient 20 to <30Sufficient 30 to 100Reference: Kayla MF,Lily NC, Florence RENAE, et al. Evaluation,treatment, and prevention of vitamin D deficiency; an Endocrine Society clinical practice guideline. JCEM. 2010; 96(7):1911-30. Pharmacy Creatinine Clearance (Chem N/A [facility] > 60 [facility] 21.4 ng/mL 30-100 [facility] N/A [facility] Potassium [Moles/volume] in Serum or Plasmaon 12-29-2019 Potassium [Moles/Vol] 3.9 mmol/L 3.5-5.1 [facility] Protein [Mass/volume] in Ser um or Plasmaon 12-29-2019 Protein [Mass/Vol] 6.9 g/dL 6.1-7.9 [facility] Serum or plasma alanine matias otransferase measurement without P-5'-P (enzymatic activion 12-29-2019 ALT No additional P-5'-P [Catalytic activity/Vol] 15 U/L 10-60 [facility] Serum or plasma albumin/glob ulin mass ratioon 12-29-2019 Albumin/Globulin [Mass ratio] 1.2 {ratio} [facility] Serum or plasma creatinine m easurement with calculation of estimated glomerular filtron 12-29-2019 Creatinine and Glomerular filtration rate.predicted panel (S/P/Bld) 0.72 mg/dL 0.64-1.27 [facility] Serum or plasma high density lipoprotein (HDL) cholesterol measurementon 12-29-2019 Cholesterol in HDL [Mass/Vol] 36 mg/dL 29-71 [facility] Comment on above: HDL CHOL ATP-III CLA SSIFICATION Cardiovascular RiskHDL > or equal to 60 mg/dL LOWHDL < 40 mg/dL HIGH Serum or plasma total choles terol/high density lipoprotein (HDL) cholesterol mass amy 12-29-2019 Cholesterol.total/Chol esterol in HDL [Mass ratio] 6.5 {ratio} <5.0 [facility] Sodium [Moles/volume] in Ser um or Plasmaon 12-29-2019 Sodium [Moles/Vol] 132 mmol/L 136-146 [facility] Triglyceride [Mass/volume] i n Serum or Plasmaon 12-29-2019 Triglyceride [Mass/Vol] 449 mg/dL 35-149 [facility] Comment on above: If the triglyceride [...] 12-29-2019 Urea nitrogen [Mass/Vol] 9 mg/dL 02-15 [facility] Vital Signs Date Time Vital Sign Value Performing Clinician Facility 01-06-2024 16:24-0400 Body height 172.72 cm [facility] 01-06-2024 16:24-0400 Body mass index (BMI) [Ratio] 29.2 kg/m2 [facility] 01-06-2024 16:24-0400 Body temperature 97.1 [degF] [facility] 01-06-2024 16:24-0400 Body weight 87.25 kg [facility] 01-06-2024 16:24-0400 Diastolic blood pressure 67 mm[Hg] [facility] 01-06-2024 16:24-0400 Heart rate 68 /min [facility] 01-06-2024 16:24-0400 Respiratory rate 18 /min [facility] 01-06-2024 16:24-0400 SaO2% (BldA) [Mass fraction] 96 % [facility] 01-06-2024 16:24-0400 Systolic blood pressure 126 mm[Hg] [facility] 01-05-2024 14:42-0400 Diastolic blood pressure 76 mm[Hg] [facility] 01-05-2024 14:42-0400 Systolic blood pressure 141 mm[Hg] [facility] 01-05-2024 14:37-0400 Body height 172.72 cm [facility] 01-05-2024 14:37-0400 Body mass index (BMI) [Ratio] 29 kg/m2 [facility] 01-05-2024 14:37-0400 Body weight 86.8 kg [facility] 01-05-2024 14:37-0400 Heart rate 85 /min [facility] 01-05-2024 14:37-0400 Respiratory rate 18 /min [facility] 01-05-2024 14:37-0400 SaO2% (BldA) [Mass fraction] 99 % [facility] 11-04-2023 15:48-0400 Body height 172.72 cm MD Tejas Stevens Work Phone: [facility] 11-04-2023 15:48-0400 Body mass index (BMI) [Ratio] 30.4 kg/m2 MD Tejas Stevens Work Phone: [facility] 11-04-2023 15:48-0400 Body temperature 98.6 [degF] MD Tejas Stevens Work Phone: [facility] 11-04-2023 15:48-0400 Body weight 90.71 kg MD Tejas Stevens Work Phone: [facility] 11-04-2023 15:48-0400 Diastolic blood pressure 75 mm[Hg] MD Tejas Stevens Work Phone: [facility] 11-04-2023 15:48-0400 Heart rate 69 /min MD Tejas Stevens Work Phone: [facility] 11-04-2023 15:48-0400 Respiratory rate 20 /min MD Tejas Stevens Work Phone: [facility] 11-04-2023 15:48-0400 SaO2% (BldA) [Mass fraction] 96 % MD Tejas Stevens Work Phone: [facility] 11-04-2023 15:48-0400 Systolic blood pressure 158 mm[Hg] MD Tejas Stevens Work Phone: [facility] 10-21-2023 13:09-0400 Body height 172.72 cm MD Tejas Stevens Work Phone: [facility] 10-21-2023 13:09-0400 Body mass index (BMI) [Ratio] 33.3 kg/m2 MD Tejas Stevens Work Phone: [facility] 10-21-2023 13:09-0400 Body temperature 97.7 [degF] MD Tejas Stevens Work Phone: [facility] 10-21-2023 13:09-0400 Body weight 99.5 kg MD Tejas Stevens Work Phone: [facility] 10-21-2023 13:09-0400 Diastolic blood pressure 60 mm[Hg] MD Tejas Stevens Work Phone: [facility] 10-21-2023 13:09-0400 Heart rate 82 /min MD Tejas Stevens Work Phone: [facility] 10-21-2023 13:09-0400 Respiratory rate 16 /min MD Tjeas Stevens Work Phone: [facility] 10-21-2023 13:09-0400 SaO2% (BldA) [Mass fraction] 92 % MD Tejas Stevens Work Phone: [facility] 10-21-2023 13:09-0400 Systolic blood pressure 150 mm[Hg] MD Tejas Stevens Work Phone: [facility] 09-29-2023 14:11-0400 Body height 172.72 cm MD Tejas Stevens Work Phone: [facility] 09-29-2023 14:11-0400 Body mass index (BMI) [Ratio] 29 kg/m2 MD Tejas Stevens Work Phone: [facility] 09-29-2023 14:11-0400 Body weight 86.63 kg MD Tejas Stevens Work Phone: [facility] 09-29-2023 14:11-0400 Diastolic blood pressure 83 mm[Hg] MD Tejas Stevens Work Phone: [facility] 09-29-2023 14:11-0400 Heart rate 67 /min MD Tejas Stevens Work Phone: [facility] 09-29-2023 14:11-0400 Respiratory rate 18 /min MD Tejas Stevens Work Phone: [facility] 09-29-2023 14:11-0400 SaO2% (BldA) [Mass fraction] 99 % MD Tejas Stevens Work Phone: [facility] 09-29-2023 14:11-0400 Systolic blood pressure 160 mm[Hg] MD Tejas Stevens Work Phone: [facility] 08-23-2023 15:00-0400 Body temperature 98.1 [degF] DO John Ervin Work Phone: [facility] 08-23-2023 15:00-0400 Diastolic blood pressure 71 mm[Hg] DO John Ervin Work Phone: [facility] 08-23-2023 15:00-0400 Heart rate 62 /min DO John Ervin Work Phone: [facility] 08-23-2023 15:00-0400 Inhaled oxygen concentration 30 % DO John Ervin Work Phone: [facility] 08-23-2023 15:00-0400 Respiratory rate 17 /min DO John Ervin Work Phone: [facility] 08-23-2023 15:00-0400 SaO2% (BldA) [Mass fraction] 100 % DO John Ervin Work Phone: [facility] 08-23-2023 15:00-0400 Systolic blood pressure 147 mm[Hg] DO John Ervin Work Phone: [facility] 08-23-2023 05:42-0400 Body weight 87.3 kg DO John Ervin Work Phone: [facility] 08-22-2023 12:26-0400 Body height 172.72 cm DO John Ervin Work Phone: [facility] 08-22-2023 10:14-0400 Inhaled oxygen flow rate 12 L/min DO John Ervin Work Phone: [facility] 08-12-2023 16:00-0400 Body mass index (BMI) [Ratio] 29.9 kg/m2 DO John Ervin Work Phone: [facility] 07-26-2023 12:00-0500 Body temperature 97.6 [degF] DO John Ervin Work Phone: [facility] 07-26-2023 12:00-0500 Diastolic blood pressure 87 mm[Hg] DO John Ervin Work Phone: [facility] 07-26-2023 12:00-0500 Heart rate 95 /min DO John Ervin Work Phone: [facility] 07-26-2023 12:00-0500 Respiratory rate 16 /min DO John Ervin Work Phone: [facility] 07-26-2023 12:00-0500 SaO2% (BldA) [Mass fraction] 97 % DO John Ervin Work Phone: [facility] 07-26-2023 12:00-0500 Systolic blood pressure 181 mm[Hg] DO John Ervin Work Phone: [facility] 07-26-2023 04:12-0500 Body weight 101.4 kg DO John Ervin Work Phone: [facility] 07-24-2023 13:20-0500 Body height 172.72 cm DO John Ervin Work Phone: [facility] 07-18-2023 22:21-0500 Body temperature 97.8 [degF] DO John Ervin Work Phone: [facility] 07-18-2023 22:21-0500 Diastolic blood pressure 82 mm[Hg] DO John Ervin Work Phone: [facility] 07-18-2023 22:21-0500 Heart rate 92 /min DO John Ervin Work Phone: [facility] 07-18-2023 22:21-0500 Respiratory rate 18 /min DO John Ervin Work Phone: [facility] 07-18-2023 22:21-0500 SaO2% (BldA) [Mass fraction] 99 % DO John Ervin Work Phone: [facility] 07-18-2023 22:21-0500 Systolic blood pressure 154 mm[Hg] DO John Ervin Work Phone: [facility] 07-18-2023 12:55-0500 Inhaled oxygen flow rate 6 L/min DO John Ervin Work Phone: [facility] 07-18-2023 11:21-0500 Body mass index (BMI) [Ratio] 32.8 kg/m2 DO John Ervin Work Phone: [facility] 07-18-2023 10:45-0500 Body height 172.72 cm DO John Ervin Work Phone: [facility] 07-18-2023 09:44-0500 Body weight 98 kg DO John Ervin Work Phone: [facility] 07-10-2023 22:48-0500 Body height 172.72 cm DO John Ervin Work Phone: [facility] 07-10-2023 22:48-0500 Body temperature 97.8 [degF] DO John Ervin Work Phone: [facility] 07-10-2023 22:48-0500 Body weight 92.2 kg DO John Ervin Work Phone: [facility] 07-10-2023 22:48-0500 Diastolic blood pressure 82 mm[Hg] DO John Ervin Work Phone: [facility] 07-10-2023 22:48-0500 Heart rate 82 /min DO John Ervin Work Phone: [facility] 07-10-2023 22:48-0500 Respiratory rate 16 /min DO John Ervin Work Phone: [facility] 07-10-2023 22:48-0500 SaO2% (BldA) [Mass fraction] 100 % DO John Ervin Work Phone: [facility] 07-10-2023 22:48-0500 Systolic blood pressure 144 mm[Hg] DO John Ervin Work Phone: [facility] 07-10-2023 15:53-0500 Body height 172.7 cm Rohan Brown DPM Work Phone: [facility] 07-10-2023 15:53-0500 Body mass index (BMI) [Ratio] 35.12 kg/m2 Rohan Brown DPM Work Phone: [facility] 07-10-2023 15:53-0500 Body weight 104.78 kg Rohan Brown DPM Work Phone: [facility] 07-10-2023 15:53-0500 Diastolic blood pressure 81 mm[Hg] Rohan Brown DPM Work Phone: [facility] 07-10-2023 15:53-0500 Heart rate 79 /min Rohan Brown DPM Work Phone: [facility] 07-10-2023 15:53-0500 Systolic blood pressure 125 mm[Hg] Rohan Brown DPM Work Phone: [facility] 06-26-2023 16:15-0500 Body height 172.7 cm Rohan Brown DPM Work Phone: [facility] 06-26-2023 16:15-0500 Body mass index (BMI) [Ratio] 35.12 kg/m2 Rohan Brown DPM Work Phone: [facility] 06-26-2023 16:15-0500 Body weight 104.78 kg Rohan Brown DPM Work Phone: [facility] 06-26-2023 16:15-0500 Diastolic blood pressure 80 mm[Hg] Rohan Han DPM Work Phone: [facility] 06-26-2023 16:15-0500 Heart rate 79 /min Rohan Han DPM Work Phone: [facility] 06-26-2023 16:15-0500 Systolic blood pressure 133 mm[Hg] Rohan Han DPM Work Phone: [facility] 06-26-2023 13:15-0500 Body height 172.72 cm Tondra Mapus Other [facility] 06-26-2023 13:15-0500 Body mass index (BMI) [Ratio] 30.41 kg/m2 Tondra Mapus Other [employer] Other 06-26-2023 13:15-0500 Body weight 90.72 kg Tondra Mapus Other [employer] Other 06-26-2023 13:15-0500 Body weight 90.71 kg DO John Ervin Work Phone: [facility] 06-26-2023 13:15-0500 Diastolic blood pressure 81 mm[Hg] Tondra Mapus Other [facility] 06-26-2023 13:15-0500 Respiratory rate 18 /min Tondra Mapus Other [employer] Other 06-26-2023 13:15-0500 SaO2% (BldA) [Mass fraction] 99 % Tondra Mapus Other [employer] Other 06-26-2023 13:15-0500 Systolic blood pressure 130 mm[Hg] Tondra Mapus Other [facility] 04-30-2023 15:00-0500 Body height 172.72 cm Michael Jacob [facility] 04-30-2023 15:00-0500 Body mass index (BMI) [Ratio] 30.71 kg/m2 Michael Ramírez Other [employer] Other 04-30-2023 15:00-0500 Body temperature 97 [degF] Michael Ramírez Other [employer] Other 04-30-2023 15:00-0500 Body weight 91.63 kg Desiree Other [employer] Other 04-30-2023 15:00-0500 Body weight 91.62 kg DO John Ervin [employer] Phone: [facility] 04-30-2023 15:00-0500 Diastolic blood pressure 94 mm[Hg] Michael Ramírez Other [facility] 04-30-2023 15:00-0500 Systolic blood pressure 161 mm[Hg] Desiree Other [facility] 04-10-2023 14:30-0500 Body height 172.72 cm Michael Ramírez Other [employer] Other 04-10-2023 14:30-0500 Body mass index (BMI) [Ratio] 30.71 kg/m2 Michael Ramírez Other [employer] Other 04-10-2023 14:30-0500 Body temperature 98.3 [degF] Michael Ramírez Other [employer] Other 04-10-2023 14:30-0500 Body weight 91.63 kg Michael Ramírez Other [employer] Other 04-10-2023 14:30-0500 Diastolic blood pressure 71 mm[Hg] Michael Ramírez Other [employer] Other 04-10-2023 14:30-0500 Systolic blood pressure 127 mm[Hg] Michael Ramírez Other [employer] Other 03-20-2023 13:00-0400 Body height 172.72 cm Tondra Mapus Other [employer] Other 03-20-2023 13:00-0400 Body mass index (BMI) [Ratio] 30.7 kg/m2 Tondra Mapus Other [employer] Other 03-20-2023 13:00-0400 Body weight 91.58 kg Tondra Mapus Other [employer] Other 03-20-2023 13:00-0400 Diastolic blood pressure 78 mm[Hg] Tondra Mapus Other [employer] Other 03-20-2023 13:00-0400 Respiratory rate 18 /min Tondra Mapus Other [employer] Other 03-20-2023 13:00-0400 SaO2% (BldA) [Mass fraction] 98 % Tondra Mapus Other [employer] Other 03-20-2023 13:00-0400 Systolic blood pressure 138 mm[Hg] Tondra Mapus Other [employer] Other 03-04-2023 11:41-0400 Body temperature 97.7 [degF] MD Tejas Stevens Work Phone: [facility] 03-04-2023 11:41-0400 Diastolic blood pressure 84 mm[Hg] MD Tejas Stevens Work Phone: [facility] 03-04-2023 11:41-0400 Heart rate 62 /min MD Tejas Stevens Work Phone: [facility] 03-04-2023 11:41-0400 Respiratory rate 12 /min MD Tejas Stevens Work Phone: [facility] 03-04-2023 11:41-0400 SaO2% (BldA) [Mass fraction] 94 % MD Tejas Stevens Work Phone: [facility] 03-04-2023 11:41-0400 Systolic blood pressure 158 mm[Hg] MD Tejas Stevens Work Phone: [facility] 03-04-2023 06:31-0400 Body weight 93.2 kg MD Tejas Stevens Work Phone: [facility] 03-03-2023 13:36-0400 Body height 172.72 cm MD Tejas Stevens Work Phone: [facility] 02-26-2023 10:56-0400 Body mass index (BMI) [Ratio] 30.4 kg/m2 MD Tejas Stevens Work Phone: [facility] 02-23-2023 16:21-0400 Diastolic blood pressure 78 mm[Hg] MD Tejas Stevens Work Phone: [facility] 02-23-2023 16:21-0400 Heart rate 70 /min MD Tejas Stevens Work Phone: [facility] 02-23-2023 16:21-0400 Respiratory rate 16 /min MD Tejas Stevens Work Phone: [facility] 02-23-2023 16:21-0400 SaO2% (BldA) [Mass fraction] 96 % MD Tejas Stevens Work Phone: [facility] 02-23-2023 16:21-0400 Systolic blood pressure 163 mm[Hg] MD Tejas Stevens Work Phone: [facility] 02-23-2023 12:39-0400 Body temperature 97.4 [degF] MD Tejas Stevens Work Phone: [facility] 02-23-2023 11:43-0400 Body height 172.72 cm MD Tejas Stevens Work Phone: [facility] 02-23-2023 11:43-0400 Body weight 101.15 kg MD Tejas Stevens Work Phone: [facility] 02-03-2023 10:30-0400 Body height 172.72 cm Pamela Berry Other [employer] Other 02-03-2023 10:30-0400 Body mass index (BMI) [Ratio] 33.6 kg/m2 Pamela Berry Other [employer] Other 02-03-2023 10:30-0400 Body temperature 96.5 [degF] Pamela Brery Other [employer] Other 02-03-2023 10:30-0400 Body weight 100.25 kg Pamela Berry Other [employer] Other 02-03-2023 10:30-0400 Diastolic blood pressure 78 mm[Hg] Pamela Berry Other [employer] Other 02-03-2023 10:30-0400 SaO2% (BldA) [Mass fraction] 96 % Pamela Berry Other [employer] Other 02-03-2023 10:30-0400 Systolic blood pressure 118 mm[Hg] Pamela Berry Other [employer] Other 01-13-2023 18:40-0400 Diastolic blood pressure 91 mm[Hg] MD Tejas Stevens Work Phone: [facility] 01-13-2023 18:40-0400 Heart rate 84 /min MD Tejas Stevens Work Phone: [facility] 01-13-2023 18:40-0400 Respiratory rate 16 /min MD Tejas Stevens Work Phone: [facility] 01-13-2023 18:40-0400 SaO2% (BldA) [Mass fraction] 97 % MD Tejas Stevens Work Phone: [facility] 01-13-2023 18:40-0400 Systolic blood pressure 146 mm[Hg] MD Tejas Stevens Work Phone: [facility] 01-13-2023 13:22-0400 Body height 172.72 cm MD Tejas Stevens Work Phone: [facility] 01-13-2023 13:22-0400 Body weight 100.24 kg MD Tejas Stevens Work Phone: [facility] 01-10-2023 10:00-0400 Body height 172.72 cm Dhruv Bautista Other [employer] [facility] [employer] Other 01-10-2023 10:00-0400 Body mass index (BMI) [Ratio] 33.6 kg/m2 Dhruv Bautista Other [employer] Other 01-10-2023 10:00-0400 Body temperature 97.3 [degF] Dhruv Bautista Other [employer] Other 01-10-2023 10:00-0400 Body weight 100.25 kg Dhruv Bautista Other [employer] Other 01-10-2023 10:00-0400 Diastolic blood pressure 74 mm[Hg] Dhruv Bautista Other [employer] Other 01-10-2023 10:00-0400 SaO2% (BldA) [Mass fraction] 96 % Dhruv Bautista Other [employer] Other 01-10-2023 10:00-0400 Systolic blood pressure 118 mm[Hg] Dhruv Bautista Other [employer] Other 07-24-2022 14:45-0500 Body height 172.72 cm Tondra Mapus Other [employer] Other 07-24-2022 14:45-0500 Body mass index (BMI) [Ratio] 34.63 kg/m2 Tondra Mapus Other [employer] Other 07-24-2022 14:45-0500 Body weight 103.33 kg Tondra Mapus Other [employer] Other 07-24-2022 14:45-0500 Diastolic blood pressure 69 mm[Hg] Tondra Mapus Other [employer] Other 07-24-2022 14:45-0500 Respiratory rate 18 /min Tondra Mapus Other [employer] Other 07-24-2022 14:45-0500 SaO2% (BldA) [Mass fraction] 96 % Tondra Mapus Other [employer] Other 07-24-2022 14:45-0500 Systolic blood pressure 108 mm[Hg] Tondra Mapus Other [employer] Other 02-06-2022 15:15-0400 Body height 172.72 cm Tondra Mapus Other [employer] Other 02-06-2022 15:15-0400 Body mass index (BMI) [Ratio] 35.58 kg/m2 Tondra Mapus Other [employer] Other 02-06-2022 15:15-0400 Body weight 106.14 kg Tondra Mapus Other [employer] Other 02-06-2022 15:15-0400 Diastolic blood pressure 103 mm[Hg] Tondra Mapus Other [employer] Other 02-06-2022 15:15-0400 Respiratory rate 20 /min Tondra Mapus Other [employer] Other 02-06-2022 15:15-0400 SaO2% (BldA) [Mass fraction] 98 % Tondra Mapus Other [employer] Other 02-06-2022 15:15-0400 Systolic blood pressure 173 mm[Hg] Tondra Mapus Other [employer] Other 08-23-2021 14:00-0400 Body height 172.72 cm Tondra Mapus Other [employer] Other 08-23-2021 14:00-0400 Body mass index (BMI) [Ratio] 36.34 kg/m2 Tondra Mapus Other [employer] Other 08-23-2021 14:00-0400 Body weight 108.41 kg Tondra Mapus Other [employer] Other 08-23-2021 14:00-0400 Diastolic blood pressure 106 mm[Hg] Tondra Mapus Other [employer] Other 08-23-2021 14:00-0400 Respiratory rate 20 /min Tondra Mapus Other [employer] Other 08-23-2021 14:00-0400 SaO2% (BldA) [Mass fraction] 97 % Tondra Mapus Other [employer] Other 08-23-2021 14:00-0400 Systolic blood pressure 169 mm[Hg] Tondra Mapus Other [employer] Other 04-03-2021 15:00-0500 Body height 172.72 cm Tondra Mapus Other [employer] Other 04-03-2021 15:00-0500 Body mass index (BMI) [Ratio] 31.62 kg/m2 Tondra Mapus Other [employer] Other 04-03-2021 15:00-0500 Body weight 94.35 kg Tondra Mapus Other [employer] Other 04-03-2021 15:00-0500 Diastolic blood pressure 90 mm[Hg] Tondra Mapus Other [employer] Other 04-03-2021 15:00-0500 Respiratory rate 20 /min Tondra Mapus Other [employer] Other 04-03-2021 15:00-0500 SaO2% (BldA) [Mass fraction] 98 % Tondra Mapus Other [employer] Other 04-03-2021 15:00-0500 Systolic blood pressure 156 mm[Hg] Tondra Mapus Other [employer] Other 02-22-2021 12:00-0400 Body height 172.72 cm Tondra Mapus Other [employer] Other 02-22-2021 12:00-0400 Body mass index (BMI) [Ratio] 30.35 kg/m2 Tondra Mapus Other [employer] Other 02-22-2021 12:00-0400 Body weight 90.54 kg Tondra Mapus Other [employer] Other 02-22-2021 12:00-0400 Diastolic blood pressure 93 mm[Hg] Tondra Mapus Other [employer] Other 02-22-2021 12:00-0400 Respiratory rate 18 /min Tondra Mapus Other [employer] Other 02-22-2021 12:00-0400 SaO2% (BldA) [Mass fraction] 99 % Tondra Mapus Other [employer] Other 02-22-2021 12:00-0400 Systolic blood pressure 169 mm[Hg] Tondra Mapus Other [employer] Other Encounters Encounter Date Encounter Type Care Provider Facility Start: 01-06-2024 End: 01-06-2024 ambulatory [facility] Work Phone: Start: 01-06-2024 End: 01-06-2024 Patient encounter procedure [facility] Ne[facility] Work Phone: Start: 01-05-2024 End: 01-05-2024 ambulatory [facility] Work Phone: Start: 01-05-2024 End: 01-05-2024 Patient encounter procedure [facility] Work Phone: Start: 01-01-2024 End: 01-01-2024 ambulatory ROHAN HAN Not Available Start: 12-29-2023 End: 12-29-2023 ambulatory [facility] Start: 12-23-2023 Non-patient / Non-visit [facility] Work Phone: Start: 12-02-2023 End: 12-02-2023 ambulatory TEJAS STEVENS Not Available Start: 11-06-2023 End: 11-06-2023 ambulatory TEJAS STEVENS Not Available Start: 11-04-2023 End: 11-04-2023 ambulatory MD Tejas Stevens Work Phone: [facility] Work Phone: Start: 11-04-2023 End: 11-04-2023 Patient encounter procedure MD Tejas Stevens Work Phone: [facility] Pulmonary Disease Work Phone: Start: 10-29-2023 End: 10-29-2023 ambulatory TEJAS STEVENS Not Available Start: 10-21-2023 End: 10-21-2023 ambulatory MD Tejas Stevens Work Phone: [facility] Work Phone: Start: 10-21-2023 End: 10-21-2023 Patient encounter procedure MD Tejas Stevens Work Phone: [facility] Work Phone: Start: 10-21-2023 End: 10-21-2023 MD Tejas Stevens Work Phone: [facility] Ne[facility] Work Phone: Start: 10-17-2023 End: 10-17-2023 ambulatory [facility] Start: 10-02-2023 End: 10-02-2023 ambulatory TEJAS STEVENS Not Available Start: 09-29-2023 End: 09-29-2023 ambulatory MD Tejas Stevens Work Phone: [facility] Work Phone: Start: 09-29-2023 End: 09-29-2023 Patient encounter procedure MD Tejas Stevens Work Phone: [facility] Work Phone: Start: 09-29-2023 End: 09-29-2023 MD Tejas Stevens Work Phone: [facility] Work Phone: Start: 09-26-2023 End: 09-26-[address] [facility] Start: 09-25-2023 End: 09-25-2023 ambulatory ROHAN HAN Not Available Start: 08-23-2023 End: 08-23-2023 Non-patient / Non-visit MD Tejas Stevens Work Phone: [facility] Pulmonary Disease Work Phone: Start: 08-23-2023 End: 08-23-2023 DO John Ervin Work Phone: [facility] Pulmonary Disease Work Phone: Start: 08-22-2023 End: 08-23-2023 Non-patient / Non-visit MD Tejas Stevens Work Phone: [facility] Nephrology Work Phone: Start: 08-22-2023 End: 08-23-2023 DO John Ervin Work Phone: [facility] Work Phone: Start: 08-17-2023 End: 08-23-2023 Non-patient / Non-visit MD Tejas Stevens Work Phone: [facility] Infectious Disease Work Phone: Start: 08-17-2023 End: 08-23-2023 DO John Ervin Work Phone: [facility] Infectious Disease Work Phone: Start: 08-16-2023 End: 08-23-2023 Non-patient / Non-visit MD Tejas Stevens Work Phone: [facility] Work Phone: Start: 08-16-2023 End: 08-23-2023 DO John Ervin Work Phone: [facility] Work Phone: Start: 08-15-2023 End: 08-23-2023 Non-patient / Non-visit MD Tejas Stevens Work Phone: [facility] Work Phone: Start: 08-15-2023 End: 08-23-2023 DO John Ervin Work Phone: [facility] Work Phone: Start: 08-15-2023 End: 08-23-2023 Non-patient / Non-visit MD Tejas Stevens Work Phone: [facility] Work Phone: Start: 08-15-2023 End: 08-23-2023 DO John Ervin Work Phone: [facility] Work Phone: Start: 08-13-2023 End: 08-13-2023 ambulatory DARRYL Nisa BRITT Not Available Start: 08-09-2023 End: 08-23-2023 Non-patient / Non-visit MD Tejas Stevens Work Phone: [facility] Work Phone: Start: 08-09-2023 End: 08-23-2023 DO Madavid Work Phone: [facility] Work Phone: Start: 08-08-2023 End: 08-23-2023 Non-patient / Non-visit MD Tejas Stevens Work Phone: [facility] Work Phone: Start: 08-08-2023 End: 08-23-2023 DO John Ervin Work Phone: [facility] Work Phone: Start: 08-08-2023 DO Madavid Work Phone: [facility] Work Phone: Start: 08-04-2023 End: 08-23-2023 MD Tejas Stevens Work Phone: [facility] Work Phone: Start: 08-02-2023 End: 08-23-2023 DO Mauric Work Phone: [facility] Work Phone: Start: 08-01-2023 End: 08-23-2023 DO Mauric Work Phone: [facility] Work Phone: Start: 08-01-2023 End: 08-23-2023 DO Mauric Work Phone: [facility] Work Phone: Start: 08-01-2023 End: 08-23-2023 DO John Ervin Work Phone: [facility] Work Phone: Start: 08-01-2023 End: 08-23-2023 Evaluation and management of inpatient DO John Ervin Work Phone: [facility] Work Phone: Start: 08-01-2023 End: 08-23-2023 DO John Ervin Work Phone: [facility] [place] [facility] Work Phone: Start: 07-28-2023 MD Tejas pemberton Work Phone: [facility] Work Phone: Start: 07-26-2023 DO John Ervin Work Phone: [facility] Work Phone: Start: 07-22-2023 DO John Ervin Work Phone: [facility] Nephrology Work Phone: Start: 07-21-2023 DO John Ervin Work Phone: [facility] Infectious Disease Work Phone: Start: 07-19-2023 DO John Ervin Work Phone: [facility] Work Phone: Start: 07-18-2023 End: 07-18-2023 Departed Referred DO John Ervin Work Phone: [facility]-Dialysis Work Phone: Start: 07-18-2023 End: 07-18-2023 DO John Ervin Work Phone: [facility]-Dialysis Work Phone: Start: 07-18-2023 End: 07-18-2023 ambulatory DO Grey Estebanuric Work Phone: [facility] Work Phone: Start: 07-15-2023 Non-patient / Non-visit DO Kane n Mauric Work Phone: [facility] Work Phone: Start: 07-15-2023 DO Mauric Work Phone: [facility] Work Phone: Start: 07-14-2023 Non-patient / Non-visit DO Kane n Mauric Work Phone: [facility] Work Phone: Start: 07-14-2023 DO Mauric Work Phone: [facility] Work Phone: Start: 07-13-2023 Non-patient / Non-visit DO Kane n Mauric Work Phone: [facility] Work Phone: Start: 07-13-2023 DO John Ervin Work Phone: [facility] Work Phone: Start: 07-12-2023 Non-patient / Non-visit DO Kane n Mauric Work Phone: [facility] Work Phone: Start: 07-12-2023 DO Mauric Work Phone: [facility] Work Phone: Start: 07-11-2023 Non-patient / Non-visit DO Kane n Mauric Work Phone: [facility] V[facility] Work Phone: Start: 07-11-2023 DO Mauric Work Phone: [facility] Vascular Surgery Work Phone: Start: 07-10-2023 Non-patient / Non-visit DO Kane Ervin Work Phone: [facility] Work Phone: Start: 07-10-2023 End: 07-26-2023 Evaluation and management of inpatient DO John Ervin Work Phone: [facility] [place] [facility] Work Phone: Start: 07-10-2023 End: 07-26-2023 DO John Ervin Work Phone: [facility] [place] [facility] Work Phone: Start: 07-10-2023 End: 07-10-2023 Postop follow up visit related to original px Rohan Han DPM Work Phone: [facility] Comment on above: Foot ulcer, left, wi th fat layer exposed (CMS/HCC) (Primary Dx); 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); PVD (peripheral vascular disease) (CMS/HCC); Foot ulcer, left, with necrosis of muscle (HCC) (CMS/HCC) Start: 07-10-2023 End: 07-10-2023 ambulatory ROHAN HAN Not Available Start: 07-10-2023 Chart abstracting Rohan catalan DPM [...] right Start: 06-26-2023 (DM) Diabetes Louise [facility] Start: 06-26-2023 End: 06-26-2023 Discharged Recurring DO John Ervin Work Phone: [facility] Work Phone: Start: 06-26-2023 End: 06-26-2023 DO John Ervin Work Phone: [facility] Work Phone: Start: 06-26-2023 End: 06-26-2023 ambulatory DO John Ervin Work Phone: [employer] Other Start: 06-26-2023 End: 06-26-2023 Patient encounter procedure DO John Orellanadavid Work Phone: [facility]- Start: 06-26-2023 End: 06-26-2023 DO John Ervin Work Phone: [facility]- Start: 06-19-2023 End: 06-19-2023 ambulatory ROHAN A BROWN Not Available Start: 06-12-2023 End: 06-12-2023 ambulatory ROHAN A BROWN Not Available Start: 05-29-2023 End: 05-29-2023 ambulatory ROHAN A BROWN Not Available Start: 05-22-2023 End: 05-22-2023 ambulatory ROHAN A BROWN Not Available Start: 05-15-2023 End: 05-15-2023 ambulatory ROHAN A BROWN Not Available Start: 05-12-2023 End: 05-12-2023 ambulatory [facility] Start: 05-01-2023 End: 05-01-2023 ambulatory ROHAN A BROWN Not Available Start: 04-30-2023 End: 04-30-2023 ambulatory Michael Ramírez Other [employer] Other Start: 04-30-2023 Office outpatient vi sit 25 minutes Michael Ramírez [facility] Start: 04-30-2023 End: 04-30-2023 Patient encounter procedure DO John Ervin Work Phone: [facility] Work Phone: Start: 04-22-2023 End: 04-22-2023 ambulatory ROHAN HAN Not Available Start: 04-16-2023 End: 04-16-2023 ambulatory ROHAN HAN Not Available Start: 04-10-2023 End: 04-10-2023 ambulatory Michael Ramírez Other [employer] Other Start: 04-10-2023 Office outpatient vi sit 25 minutes Michael Ramírez [facility] Start: 04-09-2023 End: 04-09-2023 ambulatory ROHAN HAN Not Available Start: 03-31-2023 End: 03-31-2023 ambulatory MD Tejas Stevens Work Phone: [facility] Work Phone: Start: 03-31-2023 End: 03-31-2023 Patient encounter procedure MD Tejas Stevens Work Phone: [facility]-Lab [facility] Work Phone: Start: 03-25-2023 End: 03-25-2023 Patient encounter procedure MD Tejas Stevens Work Phone: [facility]-MRI [address] Work Phone: Start: 03-25-2023 End: 03-25-2023 ambulatory MD Tejas Stevens Work Phone: [facility] Work Phone: Start: 03-24-2023 End: 03-24-2023 ambulatory MD Tejas Stevens Work Phone: [facility] Work Phone: Start: 03-24-2023 End: 03-24-2023 Patient encounter procedure MD Tejas Stevens Work Phone: [facility] Work Phone: Start: 03-20-2023 Registered Recurring MD Tejas jerome Work Phone: [facility] Work Phone: Start: 03-20-2023 (PUMP/CGM) Pump / Sensor Tondra Analyus [facility] Start: 03-20-2023 End: 03-20-2023 ambulatory Tondra Mapus Other [employer] Other Start: 03-17-2023 Telephone encounter Jennifera Ashleigh Xiong [facility] Start: 03-17-2023 End: 03-17-[address] [facility] [employer] Other Start: 03-17-2023 End: 03-17-2023 Patient encounter procedure MD Tejas Stevens Work Phone: [facility] Work Phone: Start: 03-10-2023 Telephone encounter Corrine Terrell [facility] Start: 03-10-2023 End: 03-10-2023 ambulatory MD Tejas Stevens Work Phone: [facility] Work Phone: Start: 03-10-2023 End: 03-10-2023 Patient encounter procedure MD Tejas Stevens Work Phone: [facility] Work Phone: Start: 02-24-2023 End: 02-24-2023 ambulatory Tondra Mapus Other [employer] Other Start: 02-24-2023 Telephone encounter Tondra Ashleigh Xiong [facility] Start: 02-23-2023 End: 03-04-2023 Evaluation and management of inpatient MD Tejas Stevens Work Phone: [facility] Work Phone: Start: 02-03-2023 End: 02-03-2023 Patient encounter procedure Pamela Berry [facility] Start: 02-03-2023 End: 02-03-2023 ambulatory MD Tejas Stevens Work Phone: [employer] Other Start: 01-20-2023 End: 01-20-2023 ambulatory Tondra Mapus Other [employer] Other Start: 01-20-2023 Telephone encounter Tondra Mapus [facility] Start: 01-13-2023 End: 01-13-2023 Admission to same day surgery center MD Tejas Stevens Work Phone: [facility]-Interventional Radiology Work Phone: Start: 01-13-2023 End: 01-13-2023 ambulatory Dhruv Bautista Facility:[facility] Start: 01-10-2023 End: 01-10-2023 ambulatory Dhruv Bautista Other [employer] [employer] Other Start: 01-10-2023 FQHC visit new patient Dhruv Dennison er [facility] Vascular Surgery Start: 12-19-2022 End: 12-19-2022 ambulatory Tondra Mapus Other [employer] Other Start: 12-19-2022 Telephone encounter Tondra Mapus [facility] Start: 12-02-2022 End: 12-02-2022 ambulatory Tondra Mapus Other [employer] Other Start: 12-02-2022 Telephone encounter Tondra Mapus [facility] Start: 11-06-2022 End: 11-06-2022 ambulatory Tondra Mapus Other [employer] Other Start: 11-06-2022 Telephone encounter Tondra Mapus [facility] Start: 07-24-2022 (DM) Diabetes Tondra Mapus [facility] Start: 07-24-2022 End: 07-24-2022 ambulatory Tondra Mapus Other [employer] Other Start: 07-24-2022 Telephone encounter Tondra Mapus [facility] Start: 07-23-2022 End: 07-23-2022 ambulatory GARIMA DAVID . Facility:[facility] Start: 07-16-[address] TEJAS STEVENS Facil ity:[facility] Start: 03-27-2022 End: 03-27-2022 ambulatory Tondra Mapus Other [employer] Other Start: 03-27-2022 Telephone encounter Tondra Mapus [facility] Start: 02-06-2022 (PUMP/CGM) Pump / Sensor Tondra Mapus [facility] Start: 02-06-2022 End: 02-06-2022 ambulatory Tondra Mapus Other [employer] Other Start: 12-04-2021 End: 12-04-2021 ambulatory Tondra Mapus Other [employer] Other Start: 12-04-2021 Telephone encounter Tondra Mapus [facility] Start: 10-11-2021 End: 10-11-2021 ambulatory Tondra Mapus Other [employer] Other Start: 10-11-2021 Telephone encounter Tondra Mapus [facility] Start: 09-27-2021 End: 09-27-2021 ambulatory Tondra Mapus Other [employer] Other Start: 09-27-2021 Telephone encounter Tondra Mapus [facility] Start: 08-23-2021 (PUMP/CGM) Pump / Sensor Tondra [facility] Start: 08-23-2021 End: 08-23-2021 ambulatory Tondra Mapus Other [employer] Other Start: 06-22-2021 End: 06-22-2021 ambulatory Tondra Mapus Other [employer] Other Start: 06-22-2021 Telephone encounter Tondra Mapus [facility] Start: 04-03-2021 (DM) Diabetes Tondra [facility] Start: 04-03-2021 End: 04-03-2021 ambulatory Tondra Mapus Other [employer] Other Start: 03-30-2021 End: 03-30-2021 ambulatory Tondra Mapus Other [employer] Other Start: 03-30-2021 Telephone encounter Tondra Analyus [facility] Start: 03-23-2021 Telephone encounter Tondra Analyus [facility] Start: 03-20-2021 Telephone encounter Tondra Ashleigh Xiong [facility] Start: 02-22-2021 (DM) Diabetes Tondra [facility] Procedures Date Procedure Procedure Detail Performing Clinician Start: 08-21-2023 Urine culture MD Tejas Stevens Work Phone: Start: 08-18-2023 Diagnostic radiography of abdomen DO John Ervin Work Phone: Start: 08-17-2023 Diagnostic radiography of abdomen DO John Ervin Work Phone: Start: 08-17-2023 Diagnostic radiography of abdomen DO John Ervin Work Phone: Start: 08-14-2023 Plain chest X-ray DO John Ervin Work Phone: Start: 08-13-2023 Investigation of transfusion reaction DO John Ervin Work Phone: Start: 08-12-2023 CT of abdomen and pelvis without contrast DO Jhon Ervin Work Phone: Start: 08-12-2023 CT of chest without contrast DO John arguello Work Phone: Start: 08-12-2023 CT of left foot DO John Ervin Work Phone: Start: 08-12-2023 Investigation of transfusion reaction DO John Ervin Work Phone: Start: 08-12-2023 Respiratory Panel (PCR) MD Tejas Stevens Work Phone: Start: 08-12-2023 DO John Ervin Work Phone: Start: 08-12-2023 End: 08-12-2023 Plain chest X-ray DO John Ervin Work Phone: Start: 08-11-2023 Blood culture for bacteria, including anaerobic screen DO John Ervin Work Phone: Start: 08-11-2023 Urine culture DO John Ervin Work Phone: Start: 08-11-2023 Plain chest X-ray DO John Ervin Work Phone: Start: 08-10-2023 End: 08-10-2023 Plain chest X-ray DO John Ervin Work Phone: Start: 08-09-2023 Plain chest X-ray DO John Ervin Work Phone: Start: 08-08-2023 MRI of head DO John Ervin Work Phone: Start: 08-08-2023 Plain chest X-ray DO John Ervin Work Phone: Start: 08-07-2023 Plain chest X-ray DO John Ervin Work Phone: Start: 08-06-2023 CT of head without contrast DO John winn Work Phone: Start: 08-06-2023 Plain chest X-ray DO John Ervin Work Phone: Start: 08-05-2023 Plain chest X-ray DO John Ervin Work Phone: Start: 08-04-2023 Plain chest X-ray DO John Ervin Work Phone: Start: 08-03-2023 Plain chest X-ray DO John Ervin Work Phone: Start: 08-02-2023 Urine culture DO John Ervin Work Phone: Start: 08-02-2023 Plain chest X-ray DO John Ervin Work Phone: Start: 08-01-2023 Blood culture for bacteria, including anaerobic screen DO John Ervin Work Phone: Start: 08-01-2023 Investigation of transfusion reaction DO John Ervin Work Phone: Start: 08-01-2023 Respiratory Panel (PCR) MD Tejas Stevens Work Phone: Start: 08-01-2023 DO John Ervin Work Phone: Start: 08-01-2023 Antibody screen Michael Ramírez Comment on above: Order Comment: Transfuse now? Y Number o f units to transfuse now? 2 Result Comment: PERF ORMED BY:[facility] [place], [place] [id number] MEDICAL DIRECTORJOSEPH GARCIA M.D. Start: 08-01-2023 Duplex scan of lower limb veins DO John Ervin Work Phone: Start: 08-01-2023 End: 08-01-2023 Plain chest X-ray DO John Ervin Work Phone: Start: 07-20-2023 Urine culture DO John Ervin Work Phone: Start: 07-18-2023 X-ray of left foot DO John Ervin Work Phone: Start: 07-18-2023 Amputation of toe DO John Ervin Work Phone: Start: 07-17-2023 Antibody screen Desiree Comment on above: Order Comment: Transfuse now? Y Number o f units to transfuse now? 1 Transfuse now? Y Number of units to transfuse now? 2 Result Comment: PERF ORMED BY:[facility] [place], [place] [id number] MEDICAL DIRECTORJOSEPH GARCIA M.D. Start: 07-17-2023 Plain chest X-ray DO John Ervin Work Phone: Start: 07-17-2023 Fluoroscopic guidance DO John Ervin Work Phone: Start: 07-14-2023 Urine culture DO John Ervin Work Phone: Start: 07-13-2023 Ultrasonography of bilateral kidneys DO John Ervin Work Phone: Start: 07-11-2023 MRI of left foot DO John Ervin Work Phone: Start: 07-11-2023 X-ray of left foot DO John Ervin Work Phone: Start: 07-11-2023 Amputation of toe DO John Ervin Work Phone: Start: 07-11-2023 Investigation of transfusion reaction DO John Ervin Work Phone: Start: 07-11-2023 Pulse volume recorder pneumoplethysmography DO John Ervin Work Phone: Start: 07-10-2023 X-ray of left foot DO John Ervin Work Phone: Start: 07-10-2023 Aerobic microbial culture DO John Ervin Work Phone: Start: 07-10-2023 Blood culture for bacteria, including anaerobic screen DO John Ervin Work Phone: Start: 03-25-2023 MRI of left foot MD Tejas Stevens Work Phone: Start: 03-04-2023 Insertion of peripherally inserted central catheter MD Tejas Stevens Work Phone: Start: 02-26-2023 Aerobic microbial culture MD Tejas pemberton Work Phone: Start: 02-26-2023 Anaerobic microbial culture MD Tejas castillo Work Phone: Start: 02-26-2023 Investigation of transfusion reaction MD Tejas Stevens Work Phone: Start: 02-26-2023 X-ray of left foot MD Tejas Stevens Work Phone: Start: 02-26-2023 Debridement MD Tejas Stevens Work Phone: Start: 02-25-2023 MRI of left foot MD Tejas Stevens Work Phone: Start: 02-23-2023 Blood culture for bacteria, including anaerobic screen MD Tejas Stevens Work Phone: Start: 02-23-2023 X-ray of left foot MD Tejas Stevens Work Phone: Start: 01-13-2023 Lower limb angiography MD Tejas Stevens Work Phone: H/O: tracheostomy History of tracheostomy MD Tejas Stevens Work Phone: Plan of Treatment Date Care Activity Detail Author Start: 05-12-2024 Adult BMI Screening Adult BMI Screening [facility] Start: 05-12-2024 Tobacco Screening Tobacco Screening [facility] Start: 12-17-2023 End: 12-17-2023 Patient encounter procedure 12/17/2023 2:15 PM EDT Office Visit [facility] [address] [place] [address] [address] [facility] [place] [address] Mara Vargas I, PA [address] [place] [address] [facility] Start: 11-04-2023 Patient referral [facility] Work Phone: Start: 08-23-2023 [facility] Start: 08-21-2023 [facility] Start: 08-21-2023 Urine culture [facility] Start: 08-16-2023 Referral to infectious diseases physician [facility] Start: 08-12-2023 [facility] Start: 08-12-2023 Referral to quarry manager [facility] Start: 08-12-2023 Microbial culture of sputum [facility] Start: 08-11-2023 Referral to ear, nose and throat surgeon [facility] Start: 08-06-2023 Referral to neurologist [facility] Start: 08-01-2023 Bypass Trachea to Cutaneous with Tracheostomy Device, Open Approach [facility] Start: 08-01-2023 Performance of Urinary Filtration, Intermittent, Less than 6 Hours Per Day [facility] Start: 08-01-2023 Respiratory Ventilation, Greater than 96 Consecutive Hours [facility] Start: 08-01-2023 [facility] Start: 08-01-2023 End: 08-01-2023 Consultation [facility] Start: 08-01-2023 Referral to mainframe consultant [facility] Start: 07-26-2023 [facility] Start: 07-19-2023 [facility] Start: 07-18-2023 [facility] Start: 07-17-2023 [facility] Start: 07-16-2023 Referral to vascular surgeon [facility] Start: 07-15-2023 Referral to mainframe consultant [facility] Start: 07-14-2023 Referral to rehabilitation physician [facility] Start: 07-13-2023 [facility] Start: 07-13-2023 [facility] Start: 07-11-2023 [facility] Start: 07-11-2023 Referral to vascular surgeon [facility] Start: 07-11-2023 Pulse volume recorder pneumoplethysmography US arterial pvr rest LE [facility] Start: 07-11-2023 [facility] Start: 07-10-2023 Referral to infectious diseases physician [facility] Start: 07-10-2023 MRI of left foot MR foot LT wo con [facility] Start: 07-10-2023 Referral to quarry manager [facility] Start: 07-10-2023 Hospital admission [facility] Start: 07-10-2023 [facility] Start: 07-10-2023 End: 07-10-2023 Patient encounter procedure 07/10/2023 4:00 PM EST Office Visit [facility] [address] [facility] [address] [place] [address] Rohan Han, STEVIEM [address] [address] [facility] Start: 07-10-2023 Bacteria identified in Blood by Culture [facility] Start: 07-10-2023 Detachment at Left Foot, Partial 1st Ray, [facility] Approach [facility] Start: 07-10-2023 Detachment at Left Foot, Partial 2nd Ray, Open Approach [facility] Start: 07-10-2023 Detachment at Left Foot, Partial 3rd Ray, Open Approach [facility] Start: 07-10-2023 Detachment at Left Foot, Partial 4th Ray, Open Approach [facility] Start: 07-10-2023 Detachment at Left Foot, Partial 5th Ray, Open Approach [facility] Start: 07-10-2023 Insertion of Infusion Device into Upper Vein, Percutaneous Approach [facility] Start: 07-10-2023 Superficial Wound Culture Superficial Wound Culture [facility] Start: 07-09-2023 End: 07-09-2023 Patient encounter procedure 07/09/2023 1:50 PM EST Office Visit [facility] [address] [place] [address] Rohan Han DPM [address] [address] [facility] Start: 07-02-2023 End: 07-02-2023 Patient encounter procedure 07/02/2023 8:00 AM EST Procedure Visit [facility] Rohan Han, STEVIEM [address] [address] [facility] Start: 03-04-2023 [facility] Start: 02-23-2023 Referral to vascular surgeon [facility] Start: 02-23-2023 Referral to infectious diseases physician [facility] Start: 02-23-2023 Referral to quarry manager [facility] Start: 02-23-2023 Hospital admission [facility] Start: 02-23-2023 [facility] Start: 02-23-2023 Bacteria identified in Blood by Culture [facility] Start: 02-23-2023 Detachment at Left Foot, Partial 5th Ray, Open Approach Detachment at Left Foot, Partial 5th Ray, Open Approach [facility] Start: 02-23-2023 Insertion of Infusion Device into Superior Vena Cava, Percutaneous Approach Insertion of Infusion Device into Superior Vena Cava, Percutaneous Approach [facility] Start: 01-24-2023 Influenza vaccination [facility] Start: 01-13-2023 [facility] Start: 12-20-2016 Fall Risk Screening Fall Risk Screening [facility] Start: 12-20-1970 Administration of varicella zoster vaccine Zoster (Shingles) Vaccine (1 of 2) [facility] Start: 12-20-1970 DTaP,Tdap and Td Vaccines (1 - Tdap) DTaP,Tdap and Td Vaccines (1 - Tdap) [facility] Start: 12-20-1970 Urine screening for protein Diabetes: Urine Protein Screening [facility] Start: 12-20-1969 Adult BMI Follow Up Plan Adult BMI Follow Up Plan [facility] Start: 1963 Depression Screening Depression Screening [facility] Start: 12-20-1961 Glaucoma screening Diabetes: Retinopathy Screening [facility] Start: 12-20-1957 Pneumococcal Vaccine: 65+ Years (1 - PCV) Pneumococcal Vaccine: 65+ Years (1 - PCV) [facility] Start: 12-20-1957 Pneumococcal Vaccine: 65+ Years (1 of 2 - PCV) Pneumococcal Vaccine: 65+ Years (1 of 2 - PCV) [facility] Start: 1950 Hemoglobin A1c measurement Diabetes: Hemoglobin A1C [facility] Start: 1950 Medicare Annual Wellness (AWV) Medicare Annual Wellness (AWV) [facility] Start: 1950 Medicare Annual Wellness Visit Medicare Annual Wellness Visit [facility] Start: 1950 Screening for malignant neoplasm of colon [facility] Start: 1950 Tobacco Counseling Tobacco Counseling [facility] Anion gap measurement [facility] Bacteria identified in Unspecified specimen by Aerobe culture [facility] Basophils [#/volume] in Blood by Automated count [facility] Basophils/100 leukoc ytes in Blood by Automated count [facility] Comprehensive metabo lic 1999 panel - Serum or Plasma [facility] Comprehensive metabo lic 1999 panel - Serum or Plasma [facility] Eosinophils/100 leuk ocytes in Blood by Automated count [facility] Erythrocyte distribu tion width [Ratio] by Automated count [facility] Erythrocytes [#/volu me] in Blood [facility] Glucose measurement estimated from glycated hemoglobin [facility] Hematocrit [Volume F raction] of Blood [facility] Hemoglobin [Mass/vol ume] in Blood [facility] Immunofixation for Urine [facility] Immunofixation for Urine [facility] Leukocytes [#/volume ] corrected for nucleated erythrocytes in Blood by Automated coun [facility] Leukocytes [#/volume] in Blood [facility] Lymphocytes [#/volum e] in Blood by Automated count [facility] Lymphocytes/100 leuk ocytes in Blood by Automated count [facility] MCH [Entitic mass] b y Automated count [facility] MCHC [Mass/volume] b y Automated count [facility] MCV [Entitic volume] by Automated count [facility] Monocytes [#/volume] in Blood by Automated count [facility] Monocytes/100 leukoc ytes in Blood by Automated count [facility] Neutrophils [#/volum e] in Blood by Automated count [facility] Neutrophils/100 leuk ocytes in Blood by Automated count [facility] Nucleated erythrocyt es [Presence] in Blood by Automated count [facility] Patient Education [facility] Work Phone: Patient referral [facility] Work Phone: Platelet mean volume [Entitic volume] in Blood by Automated count [facility] Platelets [#/volume] in Blood [facility] Protein [Mass/time] in 24 hour Urine [facility] Renal function 1999 panel - Serum or Plasma [facility] Renal function 1999 panel - Serum or Plasma [facility] Payers Date Payer Category Payer Unknown [employer] [id number] 2023-Present [address] [place] [address] [id number] 2023 Medicare [id number] 2023 Medicare [id number] 2023 Unknown [id number] 2019 Medicare ANTH MEDICARE [facility] MEDICARE ADVANTAGE [id number] 2019-Present [phone] [address] [place] [address] [id number] 2018 Self-pay [id number] 2018 Unknown [id number] 2016 Medicare [id number] 1959 Medicare [id number] 2.16.840.1.605439.19 1951 Unknown [id number] 2.16.840.1.746930.3.579.2.593 1951 Unknown [id number] 2.16.840.1.293770.3.579.2.593 1951 Unknown [id number] 2.16.840.1.277382.3.579.2.1286 1951 Unknown [id number] 2.16.840.1.564710.3.579.2.128 1951 Unknown [id number] 2.16.840.1.434615.3.579.2.1286 1951 Unknown [id number] 2.16.840.1.092736.3.579.2.125 1951 Unknown [id number] 2.16.840.1.983030.3.579.2.1258 1951 Unknown [id number] 2.16.840.1.271511.3.579.2.125 1951 Unknown [id number] 2.16.840.1.897344.3.579.2.125 1951 Unknown [id number] 2.16.840.1.042906.3.579.2.125 1951 Unknown [id number] 2.16.840.1.124540.3.579.2.1259 1951 Unknown [id number] 2.16.840.1.692850.3.579.2.125 1951 Unknown [id number] 2.16.840.1.830124.3.579.2.125 1951 Unknown [id number] 2.16.840.1.529936.3.579.2.125 1951 Unknown [id number] 2.16.840.1.908229.3.579.2.125 1951 Unknown [id number] 2.16.840.1.882554.3.579.2.125 1951 Unknown [id number] 2.16.840.1.734850.3.579.2.1258 1951 Unknown [id number] 2.16.840.1.750452.3.579.2.1258 1951 Unknown [id number] 2.16.840.1.665683.3.579.2.1258 1951 Unknown [id number] 2.16.840.1.926055.3.579.2.1258 1951 Unknown [id number] 2.16.840.1.172520.3.579.2.1258 1951 Unknown [id number] 2..840.1.946460.3.579.2.1258 1951 Unknown [id number] 2.16.840.1.941085.3.579.2.1258 1951 Unknown [id number] 2.16840.1.531794.3.579.2.1259 Unknown [id number] Unknown [id number] 2.16.840.1.777733.3.579.2.531 Unknown [id number] 2.16.840.1.288357.3.579.2.531 Unknown [id number] 2.16.840.1.484009.3.579.2.531 Unknown [id number] 2.16.840.1.993100.3.579.2.531 Unknown [id number] 2.16.840.1.046690.3.579.2.531 Unknown [id number] 2.16.840.1.260884.3.579.2.531 Unknown [id number] 2.16.840.1.300425.3.579.2.531 Unknown [id number] 2.16.840.1.493713.3.579.2.531 Unknown [id number] 2.16.840.1.037734.3.579.2.531 Unknown [id number] 2.16.840.1.996953.3.579.2.531 Unknown [id number] 2.16.840.1.779738.3.579.2.531 Unknown [id number] 2.16.840.1.064097.3.579.2.531 Social History Date Type Detail Facility Unknown if ever smoked [employer] Other Start: 05-12-2023 End: 07-10-2023 Sex Assigned At [facility] Start: 1950 Sex Assigned At Male [facility] Start: 02-23-2023 Tobacco smoking status [facility] Smoker (finding) [facility] Start: 02-26-2023 End: 08-17-2023 Tobacco smoking status [facility] Current Light tobacco smoker [facility] Start: 06-06-2022 End: 02-13-2023 Tobacco smoking status [facility] Occasional tobacco smoker [facility] History of tobacco use Cigar Smoker [facility] Start: 06-06-2022 Tobacco use and exposure Smokeless tobacco non-user [facility] Start: 12-04-2022 End: 07-10-2023 Alcohol intake Ex-drinker (finding) [facility] Start: 05-12-2023 End: 07-10-2023 History of Social function [facility] Housing Instability Unknown [facility] Start: 05-22-2022 Tobacco Comment 2 per day [facility] Start: 1950 Sex Assigned At Not on file P [facility] Start: 02-13-2023 Tobacco use and exposure User of smokeless tobacco [facility] Start: 01-02-2023 Alcohol Comment caffeine yes t yper: chocolate, coffee [facility] Start: 07-02-2023 Alcohol Comment caffeine yes t ype: chocolate, coffee [facility] Start: 07-10-2023 End: 01-06-2024 Tobacco smoking status [facility] Ex-smoker (finding) [facility] NEGATED: Highlighted rowStart: NINF History of tobacco use Passive smoker [facility] Medical Equipment Procedure Code Equipment Code Equipment Origin al Text Equipment Identifier Dates Wound debridement [id number] FDA Start: 02-26-2023 Fluoroscopic guidance for insertion of tunnelled dialysis catheter [id number] FDA Start: 07-17-2023 Start: 08-16-2013 Lens Iol Ultrase rt 18.0d - [id number] - [id number] Start: 06-06-2022 Lens Iol Ultrase rt 18.0d - [id number] - [id number]_[facility] Start: 06-20-2022 Blood Sugar Diagnostic (Onetouch Ultra Test) strip Start: 01-05-2024 Blood Sugar Diagnostic (Onetouch Ultra Test) strip Start: 01-05-2024 Goals Date Patient Goal Desired Activity /State Functional Status Date Assessment Result Facility 08-23-2023 Functional status Patient at Baseline [facility] Work Phone: 07-26-2023 Functional status Patient at Baseline [facility] Work Phone: 07-10-2023 Functional status Dressing Patient at [facility] Work Phone: 03-04-2023 Functional status Patient at Baseline [facility] Work Phone: Mental Status Date Assessment Result Facility 08-23-2023 Cognitive function Patient at Baseline [facility] Work Phone: 07-26-2023 Cognitive function Patient at Baseline [facility] Work Phone: 07-10-2023 Cognitive function Cognitive Sta tus Patient at Baseline [facility] Work Phone: 03-04-2023 Cognitive function Cognitive Sta tus Patient at Baseline [facility] Work Phone: Clinical Notes 01-24-2013 to 12-29-2023 Note Date & Type Note Facility 12-29-2023 Note [facility] Cardiology Clinic Note Chief Complaint: Patient here for [facility] follow up for new onset CHF. He was seen as inpatient consult by Dr. Prater while inpatient. He takes Plavix for hx of LE angiogram about 1 [facility], but denies stenting. Denies chest pain and SOB - unless he really pushes it . C/o LE edema and weight gain. Had labs last week. HPI: Sudeep Diego JR is a 73 y.o. male With a history of HFpEF, peripheral arterial disease, diabetes and chronic kidney disease here to establish care Was seen by Dr. Prater as an inpatient consult Feels better since discharge; he had lost a significant amount of weight while in the hospital. He has now put on several pounds. No one has informed him to take extra doses of Bumex. No prior stress test. No history of coronary artery disease or prior myocardial infarction's. Cardiology ROS: Review of Systems Cardiovascular: Positive for leg swelling. Musculoskeletal: Positive for muscle weakness. Neurological: Positive for focal weakness, light-headedness, loss of balance and weakness. All other systems reviewed and are negative. Past Medical History He has no past medical history on file. Surgical History He has no past surgical history on file. Social History He has no history on file for tobacco use, alcohol use, and drug use. Family History No family history on file. Allergies Patient has no allergy information on record. Medications No current outpatient medications on file. Last Recorded Vitals BP 129/76 (BP Location: Right arm, Patient Position: Sitting) Pulse 71 Ht 1.727 m (5' 8 ) Wt 88 kg (194 lb) SpO2 98% BMI 29.50 kg/m??? Physical Examination: GENERAL: alert and oriented x3, well developed, in no acute distress. HEAD: atraumatic, normocephalic. EYES: NGUYỄN, EOMI. NECK: trachea midline, no JVD present, no carotid bruits present. CARDIAC: S1, S2 present. RRR. No murmur, rubs, or gallops. RESPIRATORY: CTAB, no increased effort of breathing, no rales, rhonchi, or wheezing. ABDOMEN: soft, nontender, nondistended. EXTREMITIES: no lower extremity edema, peripheral pulses are 2+ bilaterally. No rash/skin discoloration present. NEURO: strength/sensation equal and symmetric in bilateral upper and lower extremities. PSYCH: appropriate mood, affect, and judgement. Investigations: Labs 12/23/2023: BUN is 44, creatinine is 2.41 (eGFR 27) Echocardiogram 02/2023: Mild concentric left ventricular hypertrophy. Normal left ventricular systolic function. LVEF is 55 to 60%. Normal right ventricular size and systolic function Mildly dilated left atrium No significant valvular dysfunction Agitated saline injection does not reveal any intracardiac shunt Assessment: Heart failure with preserved ejection fraction Stage IIIb chronic kidney disease Anemia Type 2 diabetes mellitus Essential hypertension Peripheral vascular disease Plan: Will check routine labs including a fasting lipid profile A complete echocardiogram will be obtained A Lexiscan stress test given his history of peripheral vascular disease, and current risk factor profile for atherosclerotic coronary artery disease Continue medical therapy for HFrEF including a beta-susan and spironolactone; His estimated GFR is above 25 therefore Farxiga can be started at 10 mg a day - will defer to his mainframe consultant and/or mechanic welder I have asked him to weigh himself daily at the same time in the morning; if he notices any increasing weight by 3 pounds or more he is to take an extra dose of Bumex Would recommend following up with nephrology and endocrinology He is to follow-up with his vascular surgeon in [facility] in 4-6 months or sooner as needed Ronel Aquino MD, MPH, [facility], [facility], [facility] Interventional Cardiology Pager Email: [email or web address] 08-23-2023 Progress note Note Date/Time August 23, 2023 11:55am [place] [facility] [address] [place] [address] Nephrology Progress Note Signed Patient: Sudeep Diego JR MR#: [id number] : 1950 Acct:[id number] Age/Sex: 72 / M Adm Date: 4 Loc: Room: [address] [place] [address] Type: ADM IN Attending Dr: Arnaldo Thomas MD Copies to: ~ Date of Service: 08/23/2023 Subjective Subjective Narrative: Mr. Diego is a 72-year-old male with history of DM2, HTN, PAD and prostate cancer. Patient was recently started on hemodialysis during his admission in June 2023 for SONYA possibly related to ATN versus Staph aureus glomerulonephritis. Patient had left diabetic wound s/p tarsometatarsal amputation. Creatinine has increased up to 5 mg/dL with no evidence of recovery. Patient was [facility]. Patient presented to [facility] from his nursing facility with severe shortness of breath requiring intubation. Chest x-ray showed bilateral pulmonary infiltrate with possible pulmonary edema. Subsequently the patient was transferred to [facility] and he continues to be on vent. Respiratory swab showed evidence of influenza A. Patient was treated for healthcare associated pneumonia with vancomycin and meropenem. Troponin was found to be elevated up to 1700. Hemoglobin was only 6.5 g/dL in setting of infection. Cardiology evaluated the patient and no intervention is planned at this point atthe patient most likely has type II demand decreased cardiac perfusion. Patientrequired prolonged hospitalization and eventually he underwent tracheostomy and is still on ventilator. Nephrology was consulted for ESRD and dialysis. Interim History: Patient continues to do clinically better from respiratory status with improvement of oxygenation. He is on intermittent collar trials that has been tolerated well. He still uses intermittent vent. Hemodialysis yesterday was postponed for further evaluation of renal function since serum creatinine is still low however the patient still oliguric. Unfortunately he still has minimal urine output. Urine analysis was concentrated and FENa is only 0.29% suggestive of functioning tubules and possible an element of prerenal failure And is approved to go to LTAC today. Urine analysis was reviewed that showed concentrated urine with hyaline cast 50-100 and mild granular casts 1-2/LPF suggestive of volume depletion versus ATN. Urine analysis continues to have large WBCs. He is currently on micafungin for Rajiv glabrata UTI Exam Physical Exam Vital Signs: Temp Pulse Resp BP Pulse Ox O2 Del Method O2 Flow Rate 36.8 C 59 L 20 134/67 100 Mechanical Ventilation 12 08/23/23 09:15 08/23/23 11:00 08/23/23 09:15 08/23/23 11:00 08/23/23 09:15 08/23/23 09:15 08/22/23 10:14 FiO2 08/23/23 11:00 Narrative: Constitutional: Looks ill however general condition seems to be improving daily. He is awake and able to answer questions even though he is on ventilator with tracheostomy HEENT: mild pallor with no jaundice or cyanosis. Neck: He has tracheostomy on vent. Cardiovascular: RRR, normal S1-S2, no gallop or rub, No JVD Respiratory: Diminished breath sounds with scattered crackles in both lung ashraf. Gastrointestinal: Soft, non tender Extremities: Still has edema however it is improved with ultrafiltration Skin: No rashes or bruises Neurology: Awake, alert and oriented x 3. Able to answer questions and move allextremities. Vascular access: Right IJ tunneled hemodialysis catheter with clean exit site. Objective Intake and Output I&O: Intake & Output 08/20/23 08/21/23 08/22/23 08/23/23 23:59 23:59 23:59 23:59 Intake Total 1835 / 1835 1375 / 1375 1218 / 1218 2128 / 2128 Output Total 1623 / 1623 175 / 175 125 / 125 50 / 50 Balance / 212 1200 / 1200 1093 / 1093 2078 / 2078 Weight 84.6 kg 83.4 kg 85.8 kg 87.3 kg Meds and Allergies Meds: Active Medications Acetaminophen (Acetaminophen 650 Mg/20.3 Ml Oral.Susp) 650 mg NG-TUBE Q6H PRN PRN Reason: Fever or Pain Stop: 08/12/24 13:59 Last Admin: 08/23/23 08:27 Dose: 650 mg Albuterol (Albuterol Hfa 200 Puff/18 Gm Inhaler) 6 puff VENT Q6HR KACI Stop: 07/31/24 11:59 Last Admin: 08/23/23 11:01 Dose: 6 puff Amlodipine Besylate (Amlodipine 10 Mg Tablet) 10 mg OG-TUBE DAILY KACI Stop: 08/16/24 08:59 Last Admin: 08/23/23 08:27 Dose: 10 mg Aspirin (Aspirin 81 Mg Tab.Chew) 81 mg NG-TUBE DAILY [facility] Stop: 08/16/24 15:59 Last Admin: 08/23/23 08:27 Dose: 81 mg Clopidogrel Bisulfate (Clopidogrel Bisulfate 75 Mg Tablet) 75 mg NG-TUBE DAILY [facility]I Stop: 08/16/24 15:59 Last Admin: 08/23/23 08:27 Dose: 75 mg Darbepoetin Abisai (Darbepoetin Abisai In Polysorbat 60 Mcg/Ml Vial) 60 mcg [facility]; Protocol Stop: 08/12/24 09:04 Last Admin: 08/20/23 13:47 Dose: 60 mcg Dextrose (Dextrose 50% In Water 25 Gm/50 Ml Syringe) 0 gm IV-PUSH PRN PRN PRN Reason: Hypoglycemia Stop: 07/31/24 08:04 Last Admin: 08/19/23 05:25 Dose: 25 gm Diclofenac Sodium (Diclofenac Sodium 1% Gel 100 Gm Tube) 4 gm TOPICAL QID [facility] Stop: 08/16/24 17:59 Last Admin: 08/23/23 08:28 Dose: 4 gm Fentanyl Citrate (Fentanyl/Pf 100 Mcg/2 Ml Vial) 50 mcg IV-PUSH Q2H PRN PRN Reason: tracheostomy pain Last Admin: 08/22/23 19:40 Dose: 50 mcg Ferric Sodium Gluconate Complex (Sodium Ferric Gluconat/Sucrose 62.5 Mg/5 Ml Vial) 125 mg IV-PUSH 3XW [facility] Stop: 08/25/23 09:01 Gabapentin (Gabapentin 300 Mg/6 Ml Udc) 100 mg NG-TUBE QPM [facility] Stop: 08/16/24 20:59 Last Admin: 08/22/23 20:33 Dose: 100 mg Glucose (Dextrose 40% Gel 15 Gm Tube) 0 gm PO PRN PRN PRN Reason: Hypoglycemia Stop: 07/31/24 08:04 Heparin Sodium (Porcine) (Heparin 5,000 Unit/Ml Vial) 5,000 unit SUBCUT Q8HR [facility] Stop: 08/01/24 13:59 Last Admin: 08/23/23 05:37 Dose: 5,000 unit Heparin Sodium (Porcine) (Heparin 10,000 Unit/10 Ml Vial) 4,100 unit IV PRN PRN PRN Reason: Dialysis Stop: 08/07/24 14:32 Last Admin: 08/23/23 11:08 Dose: 4,100 unit Heparin Sodium (Porcine) (Heparin 10,000 Unit/10 Ml Vial) 2,500 unit IV PRN PRN PRN Reason: Dialysis Stop: 08/01/24 09:40 Last Admin: 08/23/23 11:08 Dose: 2,500 unit Heparin Sodium (Porcine) (Heparin 10,000 Unit/10 Ml Vial) 1,500 unit IV PRN PRN PRN Reason: Dialysis Stop: 08/05/24 10:45 Last Admin: 08/23/23 11:09 Dose: 1,500 unit Hydralazine HCl (Hydralazine 20 Mg/Ml Vial) 10 mg IV-PUSH Q4H PRN PRN Reason: Hypertension Stop: 08/07/24 12:07 Last Admin: 08/15/23 04:42 Dose: 10 mg Sodium Chloride (0.9% Sodium Chloride 1,000 Ml) 1,000 mls @ 0 mls/hr MISCELLANE.Q0M PRN PRN Reason: Dialysis Stop: 07/31/24 10:31 Last Infusion: 08/20/23 13:50 Dose: Infused Sodium Chloride (0.9% Sodium Chloride 1,000 Ml) 1,000 mls @ 0 mls/hr MISCELLANE.Q0M PRN PRN Reason: Dialysis Stop: 08/01/24 09:40 Last Infusion: 08/23/23 11:13 Dose: Infused Dexmedetomidine HCl 400 mcg/ (Dextrose) 100 mls @ 4.84 mls/hr IV .[id number] [facility]; Protocol Stop: 08/04/24 10:14 Last Titration: 08/23/23 06:15 Dose: 0 mcg/kg/hr, 0 mls/hr Insulin Aspart (Insulin Aspart 300 Units/3 Ml Insuln.Pen) 0 units SUBCUT Q6HR [facility]; Protocol Stop: 07/31/24 11:59 Last Admin: 08/23/23 05:37 Dose: 4 units Insulin Glargine (Insulin Glargine 300 Units/3 Ml Insuln.Pen) 20 units SUBCUT BID [facility] Stop: 08/19/24 20:59 Last Admin: 08/23/23 08:28 Dose: 20 units Lansoprazole (Lansoprazole Solutab *Nf* 30 Mg Tab.Rap.Dr) 30 mg PEG DAILY [facility] Stop: 08/16/24 08:59 Last Admin: 08/22/23 09:43 Dose: 30 mg Magnesium Hydroxide (Magnesium Hydroxide Susp 30 Ml Udc) 30 ml PO DAILY PRN PRN Reason: Constipation Stop: 08/02/24 22:13 Metoprolol Tartrate (Metoprolol Tartrate 5 Mg/5 Ml Vial) 5 mg IV-PUSH Q4H PRN PRN Reason: Blood Pressure Stop: 08/13/24 12:28 Metoprolol Tartrate (Metoprolol Tartrate 50 Mg Tablet) 50 mg NG-TUBE BID [facility] Stop: 08/15/24 20:59 Last Admin: 08/23/23 08:27 Dose: 50 mg Sodium Chloride (Sodium Chloride 0.9 % 10 Ml Syringe) 0 ml IV-PUSH PRN PRN PRN Reason: Flush Stop: 07/31/24 10:31 Last Admin: 08/23/23 11:09 Dose: 40 ml Sodium Chloride (Sodium Chloride 0.9 % 10 Ml Syringe) 0 ml IV-PUSH PRN PRN PRN Reason: Flush Stop: 08/01/24 09:40 Last Admin: 08/15/23 11:38 Dose: 40 ml Allergies cefepime Allergy (Unknown, Verified 07/10/23 18:46) Hives lisinopril Allergy (Unknown, Verified 07/10/23 18:46) Swelling of Lip/Tongue/Throat, SWELLING metformin Allergy (Unknown, Verified 07/10/23 18:46) Back Pain, KIDNEY PAIN Results - Nephrology Labs 08/21/23 05:47 08/22/23 08:55 Radiology Impressions Impressions - last 24 hours: Any impression(s) listed above is documentation that was entered by the reading physician into a diagnostic report(s) for Sudeep Diego JR. I have reviewed the report(s) and am incorporating any findings in the treatment plan of this patient where applicable. A&P - Nephrology Assessment/Plan (1) SONYA (acute kidney injury): Assessment/Problem Details: Patient developed SONYA during his previous admission on June 2023 with left foot infection and staph bacteremia with no evidence of recovery currently on dialysis. Baseline creatinine was 1.1 mg/dL. Patient gets dialysis on MWF schedule (2) Acute pulmonary edema: Assessment/Problem Details: Patient presents with shortness of breath and respiratory failure. Chest x-ray showed pulmonary congestion with evidence of bilateral infiltrate. 2D echo showed dilated IVC with abnormal collapsibility suggestive of volume overload. Patient had total -5.5 L with ultrafiltration during hospitalization. (3) Acute hypoxic respiratory failure: Assessment/Problem Details: Patient has bilateral infiltrate on chest x-ray, respiratory swab was positive for influenza A. Patient is currently getting treatment for healthcare associated pneumonia as well since he has recent hospitalization (4) T2DM (type 2 diabetes mellitus): Assessment/Problem Details: He has insulin-dependent type 2 diabetes mellitus. He was taking insulin glargine at home. (5) Elevated troponin level not due to acute coronary syndrome: Assessment/Problem Details: He has a type II SD likely due to demand ischemia in setting of CHF and sepsis. (6) Anemia of renal disease: Assessment/Problem Details: He has anemia in the setting of SONYA with superimposed infection. Patient has elevated ferritin and low iron saturation in setting of infection. Plan * I will provide additional dialysis today for 210 minutes, 3K bath with minimal ultrafiltration possibly 1 L however the patient seems to be breathing comfortably. Blood pressure has improved and hopefully urine output will increase so we can hold dialysis and will see if renal function would improve. He has been on hemodialysis for SONYA since June 2023 in the setting of pneumonia. Baseline creatinine was 1 to 1.2 mg/dL before and there is a possibility of renal recovery. Renal function need to be monitored at LTAC for possible renal recovery. * He is currently on micafungin and meropenem. Sputum culture showed Rajiv albicans and urine culture showed Rajiv glabrata. * Continue current dose of amlodipine and metoprolol. Will decrease the doses if blood pressure drops * Intermittent collar Trials as tolerated by pulmonary team for possible extubation in the near future * Monitor daily intake, output and renal panel to adjust medications and dialysis prescription as indicated. Patient stable from renal point to be discharged to LTAC. As mentioned above, renal function need to be monitored and once urine output increases with improvement of blood pressure, he should have a trial of holding dialysis. Documented By: Sury Winkler MD 08/23/23 1149 Signed By: <Electronically signed by MD Sury Winkler> 08/23/23 9316 [facility] Work Phone: [phone] 800-615703-30-2024 Progress note Author Mariia Reyna [facility] August 23, 2023 11:22am Note Date/Time August 23, 2023 11: 22am [facility] [address] [place] [address] Pulmonology Progress Note Signed Patient: Sudeep Diego JR MR#: [id number] : 1950 Acct:[id number] Age/Sex: 72 / M Adm Date: 4 Loc: Room: [address] [place] [address] Type: ADM IN Attending Dr: Arnaldo Thomas MD Copies to: ~ Date of Service: 08/23/2023 Subjective Subjective Narrative: Patient is awake on the vent, stable settings. He is tolerating weaning trach collar for few hours during the day. He is scheduled for discharge to LTAC thisafternoon. Exam Physical Exam Vital Signs: Temp Pulse Resp BP Pulse Ox O2 Del Method O2 Flow Rate 98.2 F 59 L 20 134/67 100 Mechanical Ventilation 12 08/23/23 09:15 08/23/23 11:00 08/23/23 09:15 08/23/23 11:00 08/23/23 09:15 08/23/23 09:15 08/22/23 10:14 FiO2 30 08/23/23 11:00 Narrative: General awake follows commands HEENT NG tube in place, tracheostomy in place Cardiovascular regular rate normal S1-S2 Lungs clear to auscultation Abdomen soft nontender Extremity no edema Neuro nonfocal Objective Intake and Output I&O - Last 24 Hours: Intake & Output 08/22/23 08/23/23 08/23/23 23:59 07:59 15:59 Intake Total 446 / 1218 514 / 2129 1615 / 2129 Output Total 50 / 125 50 / 50 Balance 396 / 1093 464 / 2079 1615 / 2079 Weight 87.3 kg Labs 08/21/23 05:47 08/22/23 08:55 Microbiology Micro: Microbiology 3 08/21/23 15:17 Urine Culture - Preliminary Urine - Clean-Voided Midstream Klebsiella pneumoniae Assessment/Plan Assessment/Plan (1) Acute hypoxic respiratory failure: (2) Acute pulmonary edema: (3) ESRD (end stage renal disease): (4) T2DM (type 2 diabetes mellitus): (5) PAD (peripheral artery disease): Plan Continue to try trach collar during the day and extend time on trach collar as tolerated and vent at night. He was accepted to go to LTAC and stable for discharge Continue tube feeds through NG tube and hopefully when he is weaned off the ventwill pass swallowing evaluation DVT prophylaxis heparin Documented By: Mariia Reyna MD 08/23/23 1119 Signed By: <Electronically signed by Mariia Reyna MD> 08/23/23 1122 [facility] Work Phone: [phone]) 587-467403-29-2024 Progress note Author Arnaldo Thomas [facility] August 22, 2023 12:13pm Note Date/Time August 22, 2023 12: 13pm [facility] [address] [place] [address] Hospitalist Progress Note Signed Patient: Sudeep Diego JR MR#: [id number] : 1950 Acct:[id number] Age/Sex: 72 / M Adm Date: 4 Loc: Room: [address] [place] [address] Type: ADM IN Attending Dr: Arnaldo Thomas MD Copies to: ~ Date of Service: 08/22/2023 Subjective Subjective Narrative: Patient examined at bedside with no overnight event. Currently on trach collar with no signs of respiratory distress. He did sleep well last night. Continuesto remain oliguric. Exam Physical Exam Vital Signs: Temp Pulse Resp BP Pulse Ox O2 Del Method O2 Flow Rate 98.6 F 58 L 17 116/57 L 100 Trach Collar 12 08/22/23 04:00 08/22/23 06:08 08/22/23 05:02 08/22/23 06:08 08/22/23 05:00 08/22/23 10:14 08/22/23 10:14 FiO2 30 08/22/23 12:00 Const General: cooperative Orientation: alert and awake Other: Able to follow simple commands and does not appear to be in acute distress Resp Effort & Inspection: normal respiratory effort Auscultation: no rales, no rhonchi and no wheezes Neuro General: patient alert, patient awake, moves all extremities and no focal motor deficits Extrem General: no clubbing, cyanosis or edema and no calf tenderness Objective Lab Results 08/21/23 05:47 08/22/23 08:55 Meds Allergies and Active Meds Allergies cefepime Allergy (Unknown, Verified 07/10/23 18:46) Hives lisinopril Allergy (Unknown, Verified 07/10/23 18:46) Swelling of Lip/Tongue/Throat, SWELLING metformin Allergy (Unknown, Verified 07/10/23 18:46) Back Pain, KIDNEY PAIN Active Meds: Active Medications Generic Name Dose Route Start Last Admin Trade Name Freq PRN Reason Stop Dose Admin Acetaminophen 650 mg 08/13/23 14:00 08/21/23 09:01 Acetaminophen 650 Mg/20.3 Ml Oral.Susp NG-TUBE 08/12/24 13:59 650 mg Q6H PRN Administration Fever or Pain Albuterol 6 puff 08/01/23 12:00 08/22/23 05:06 Albuterol Hfa 200 Puff/18 Gm Inhaler VENT 07/31/24 11:59 6 puff Q6HR [facility] Administration Amlodipine Besylate 10 mg 08/17/23 09:00 08/22/23 09:42 Amlodipine 10 Mg Tablet OG-TUBE 08/16/24 08:59 10 mg DAILY [facility]I Administration Aspirin 81 mg 08/17/23 16:00 08/22/23 09:42 Aspirin 81 Mg Tab.Chew NG-TUBE 08/16/24 15:59 81 mg DAILY [facility] Administration Clopidogrel Bisulfate 75 mg 08/17/23 16:00 08/22/23 09:42 Clopidogrel Bisulfate 75 Mg Tablet NG-TUBE 08/16/24 15:59 75 mg DAILY [facility] Administration Darbepoetin Abisai 60 mcg 08/13/23 09:05 08/20/23 13:47 Darbepoetin Abisai In Polysorbat 60 Mcg/Ml Vial IV-PUSH 08/12/24 09:04 60 mcg QWEEK [facility] Administration Protocol Dextrose 0 gm 08/01/23 08:05 08/19/23 05:25 Dextrose 50% In Water 25 Gm/50 Ml Syringe IV-PUSH 07/31/24 08:04 25 gm PRN PRN Administration Hypoglycemia Diclofenac Sodium 4 gm 08/17/23 18:00 08/22/23 09:42 Diclofenac Sodium 1% Gel 100 Gm Tube TOPICAL 08/16/24 17:59 4 gm QID [facility] Administration Fentanyl Citrate 50 mcg 08/13/23 14:00 08/22/23 09:41 Fentanyl/Pf 100 Mcg/2 Ml Vial IV-PUSH 50 mcg Q2H PRN Administration tracheostomy pain Ferric Sodium Gluconate Complex 125 mg 08/22/23 09:00 Sodium Ferric Gluconat/Sucrose 62.5 Mg/5 Ml Vial IV-PUSH 08/25/23 09:01 3XW [facility] Gabapentin 100 mg 08/18/23 12:35 08/21/23 21:42 Gabapentin 300 Mg/6 Ml Udc NG-TUBE 08/16/24 20:59 100 mg QPM [facility] Administration Glucose 0 gm 08/01/23 08:05 Dextrose 40% Gel 15 Gm Tube PO 07/31/24 08:04 PRN PRN Hypoglycemia Heparin Sodium (Porcine) 5,000 unit 08/02/23 14:00 08/22/23 05:34 Heparin 5,000 Unit/Ml Vial SUBCUT 08/01/24 13:59 5,000 unit Q8HR [facility] Administration Heparin Sodium (Porcine) 4,100 unit 08/08/23 14:33 08/20/23 13:48 Heparin 10,000 Unit/10 Ml Vial IV 08/07/24 14:32 4,100 unit PRN PRN Administration Dialysis Heparin Sodium (Porcine) 2,500 unit 08/15/23 09:09 08/20/23 13:47 Heparin 10,000 Unit/10 Ml Vial IV 08/01/24 09:40 2,500 unit PRN PRN Administration Dialysis Heparin Sodium (Porcine) 1,500 unit 08/15/23 09:09 08/20/23 13:48 Heparin 10,000 Unit/10 Ml Vial IV 08/05/24 10:45 1,500 unit PRN PRN Administration Dialysis Hydralazine HCl 10 mg 08/08/23 12:08 08/15/23 04:42 Hydralazine 20 Mg/Ml Vial IV-PUSH 08/07/24 12:07 10 mg Q4H PRN Administration Hypertension Sodium Chloride 1,000 mls @ 0 mls/hr 08/01/23 10:32 08/20/23 13:50 0.9% Sodium Chloride 1,000 Ml MISCELLANE 07/31/24 10:31 Infused .Q0M PRN Infusion Dialysis As Directed Sodium Chloride 1,000 mls @ 0 mls/hr 08/02/23 09:41 08/15/23 11:39 0.9% Sodium Chloride 1,000 Ml MISCELLANE 08/01/24 09:40 Infused .Q0M PRN Infusion Dialysis As Directed Dexmedetomidine HCl 400 mcg/ 100 mls @ 4.84 mls/hr 08/05/23 10:15 08/22/23 06:08 Dextrose IV 08/04/24 10:14 0 mcg/kg/hr .[id number] [facility] 0 mls/hr Titration Protocol 0.2 MCG/KG/HR Insulin Aspart 0 units 08/01/23 12:00 08/22/23 05:35 Insulin Aspart 300 Units/3 Ml Insuln.Pen SUBCUT 07/31/24 11:59 3 units Q6HR [facility] Administration Protocol Insulin Glargine 20 units 08/20/23 21:00 08/22/23 09:43 Insulin Glargine 300 Units/3 Ml Insuln.Pen SUBCUT 08/19/24 20:59 20 units BID [facility] Administration Lansoprazole 30 mg 08/17/23 09:00 08/22/23 09:43 Lansoprazole Solutab *Nf* 30 Mg Tab.Rap.Dr OBRIEN 08/16/24 08:59 30 mg DAILY [facility] Administration Magnesium Hydroxide 30 ml 08/03/23 22:14 Magnesium Hydroxide Susp 30 Ml Udc PO 08/02/24 22:13 DAILY PRN Constipation Metoprolol Tartrate 5 mg 08/14/23 12:29 Metoprolol Tartrate 5 Mg/5 Ml Vial IV-PUSH 08/13/24 12:28 Q4H PRN Blood Pressure Metoprolol Tartrate 50 mg 08/16/23 21:00 08/22/23 09:42 Metoprolol Tartrate 50 Mg Tablet NG-TUBE 08/15/24 20:59 50 mg BID [facility] Administration Sodium Chloride 0 ml 08/01/23 10:32 08/20/23 13:48 Sodium Chloride 0.9 % 10 Ml Syringe IV-PUSH 07/31/24 10:31 40 ml PRN PRN Administration Flush Sodium Chloride 0 ml 08/02/23 09:41 08/15/23 11:38 Sodium Chloride 0.9 % 10 Ml Syringe IV-PUSH 08/01/24 09:40 40 ml PRN PRN Administration Flush A&P - Hospitalist Assessment/Plan (1) Acute hypoxic respiratory failure: (2) ESRD (end stage renal disease): (3) T2DM (type 2 diabetes mellitus): (4) Hyperlipemia: (5) HTN (hypertension): (6) PAD (peripheral artery disease): (7) Encephalopathy: (8) Anemia of renal disease: (9) Thrombocytosis: Plan Awaiting discharge to LTAC once approved by insurance. He has been tolerating trach collar well intermittently with mechanical ventilator at night. Renal failure being managed by nephrology. Completed micafungin. He remains afebrilebut continues to have leukocytosis with thrombocytosis. Patient is receiving IViron. Continue basal insulin with sliding scale coverage. Nutrition through NG tube. Continue aspirin, Plavix, amlodipine and DVT prophylaxis with subcutaneous heparin. Documented By: Arnaldo Thomas MD 08/22/23 1209 Signed By: <Electronically signed by Arnaldo Thomas MD> 08/22/23 1213 [facility] Work Phone: [phone] Progress note Author Mehul Garrett [facility] August 22, 2023 12:03pm Note Date/Time August 22, 2023 8:0 3am [facility] [address] [place] [address] Pulmonology Progress Note Signed Patient: Sudeep Diego JR MR#: [id number] : 1950 Acct:[id number] Age/Sex: 72 / M Adm Date: 4 Loc: Room: [address] [place] [address] Type: ADM IN Attending Dr: Arnaldo Thomas MD Copies to: ~ Date of Service: 08/22/2023 Subjective Subjective Narrative: Patient continues awake and alert and overall appears less restless. Exam Physical Exam Vital Signs: Temp Pulse Resp BP Pulse Ox O2 Del Method O2 Flow Rate 98.6 F 58 L 17 116/57 L 100 Mechanical Ventilation 10 08/22/23 04:00 08/22/23 06:08 08/22/23 05:02 08/22/23 06:08 08/22/23 05:00 08/22/23 05:00 08/20/23 20:30 FiO2 30 08/22/23 07:00 Const Nutritional Appearance: average body habitus and overweight HEENT Head: normal to inspection, normocephalic and atraumatic Ears: external ears normal Nose: external nose normal Face and sinus: normal facial exam Eyes Eyelids: eyelids normal Neck Neck: normal visual inspection, no lymphadenopathy and tracheostomy present (cuffed Size 8 Shiley tracheostomy) Chest Chest palpation & inspection: normal inspection of the chest Resp Auscultation: clear to auscultation bilaterally, no rales, no rhonchi and no wheezes Cardio Rate: regular rate Rhythm: regular rhythm Heart Sounds: S1 normal, S2 normal, no gallops, no murmurs and no rubs GI Inspection: normal to inspection Palpation: soft and nontender Auscultation: hypoactive bowel sounds Rectal Exam: deferred General: deferred Skin General: no rashes or lesions noted (warm and dry) Extrem General: no pedal edema and amputation noted Transmetatarsal: left Objective Intake and Output I&O - Last 24 Hours: Intake & Output 08/21/23 08/22/23 08/22/23 23:59 07:59 15:59 Intake Total 515 / 1375 436 / 436 Output Total 50 / 175 50 / 50 Balance 465 / 1200 386 / 386 Weight 189 lb 2.506 oz Labs 08/21/23 05:47 08/22/23 08:55 Assessment/Plan Assessment/Plan (1) Acute hypoxic respiratory failure: (2) Acute pulmonary edema: (3) ESRD (end stage renal disease): (4) T2DM (type 2 diabetes mellitus): (5) PAD (peripheral artery disease): Plan Hospital Day #21 for patient with acute on chronic respiratory failure with patient getting to x 4-hour tracheostomy collar trials per day and nocturnal mechanical ventilatory support. Patient's encephalopathy appears to be improving. We are awaiting expedited appeal of LTAC transfer. We will continuesupportive care but have little else to recommend at this point. Documented By: Mehul Garrett MD 4 [id number] Signed By: <Electronically signed by MD Mehul Garrett> 08/22/23 1203 [facility] Work Phone: [phone] 251-403603-29-2024 Progress [facility] 22, [facility]23 11:30am Note Date/Time August 22, 2023 11: 30am [facility] [address] [place] [address] Nephrology Progress Note Signed Patient: Sudeep Diego JR MR#: [id number] : 1950 Acct:[id number] Age/Sex: 72 / M Adm Date: 4 Loc: Room: [address] [place] [address] Type: ADM IN Attending Dr: Arnaldo Thomas MD Copies to: ~ Date of Service: 08/22/2023 Subjective Subjective Narrative: Mr. Diego is a 72-year-old male with history of DM2, HTN, PAD and prostate cancer. Patient was recently started on hemodialysis during his admission in June 2023 for SONYA possibly related to ATN versus Staph aureus glomerulonephritis. Patient had left diabetic wound s/p tarsometatarsal amputation. Creatinine has increased up to 5 mg/dL with no evidence of recovery. [facility]. Patient presented to [facility] from his nursing facility with severe shortness of breath requiring intubation. Chest x-ray showed bilateral pulmonary infiltrate with possible pulmonary edema. Subsequently the patient was transferred to [facility] and he continues to be on vent. Respiratory swab showed evidence of influenza A. Patient was treated for healthcare associated pneumonia with vancomycin and meropenem. Troponin was found to be elevated up to 1700. Hemoglobin was only 6.5 g/dL in setting of infection. Cardiology evaluated the patient and no intervention is planned at this point atthe patient most likely has type II demand decreased cardiac perfusion. Patientrequired prolonged hospitalization and eventually he underwent tracheostomy and is still on ventilator. Nephrology was consulted for ESRD and dialysis. Interim History: Patient clinically is doing better and is able to tolerate oral trial through tracheostomy for longer billiards every day. He has no edema and he looks dry. He still n.p.o. with tube feeding. Serum creatinine is only 3 mg/dL today with no hyperkalemia or acidosis however the patient still has low urine output 175 mL over the last 24 hours. Urine analysis was reviewed that showed concentrated urine with hyaline cast 50- 100 and mild granular casts 1-2/LPF suggestive of volume depletion versus ATN. Urine analysis continues to have large WBCs. He is currently on micafungin for Rajiv glabrata UTI Exam Physical Exam Vital Signs: Temp Pulse Resp BP Pulse Ox O2 Del Method O2 Flow Rate 37.0 C 58 L 17 116/57 L 100 Trach Collar 12 08/22/23 04:00 08/22/23 06:08 08/22/23 05:02 08/22/23 06:08 08/22/23 05:00 08/22/23 10:14 08/22/23 10:14 FiO2 40 08/22/23 10:14 Narrative: Constitutional: Looks ill however general condition seems to be improving daily. He is awake and able to answer questions even though he is on ventilator with tracheostomy HEENT: mild pallor with no jaundice or cyanosis. Neck: He has tracheostomy on vent. Cardiovascular: RRR, normal S1-S2, no gallop or rub, No JVD Respiratory: Diminished breath sounds with scattered crackles in both lung ashraf. Gastrointestinal: Soft, non tender Extremities: Still has edema however it is improved with ultrafiltration Skin: No rashes or bruises Neurology: Awake, alert and oriented x 3. Able to answer questions and move allextremities. Vascular access: Right IJ tunneled hemodialysis catheter with clean exit site. Objective Intake and Output I&O: Intake & Output 08/19/23 08/20/23 08/21/23 08/22/23 23:59 23:59 23:59 23:59 Intake Total 1365 / 1365 1835 / 1835 1375 / 1375 436 / 436 Output Total 175 / 175 1623 / 1623 175 / 175 50 / 50 Balance 1190 / 1190 212 / 212 1200 / 1200 386 / 386 Weight 84.3 kg 84.6 kg 83.4 kg 85.8 kg Meds and Allergies Meds: Active Medications Acetaminophen (Acetaminophen 650 Mg/20.3 Ml Oral.Susp) 650 mg NG-TUBE Q6H PRN PRN Reason: Fever or Pain Stop: 08/12/24 13:59 Last Admin: 08/21/23 09:01 Dose: 650 mg Albuterol (Albuterol Hfa 200 Puff/18 Gm Inhaler) 6 puff VENT Q6HR [facility] Stop: 07/31/24 11:59 Last Admin: 08/22/23 05:06 Dose: 6 puff Amlodipine Besylate (Amlodipine 10 Mg Tablet) 10 mg OG-TUBE DAILY [facility] Stop: 08/16/24 08:59 Last Admin: 08/22/23 09:42 Dose: 10 mg Aspirin (Aspirin 81 Mg Tab.Chew) 81 mg NG-TUBE DAILY [facility] Stop: 08/16/24 15:59 Last Admin: 08/22/23 09:42 Dose: 81 mg Clopidogrel Bisulfate (Clopidogrel Bisulfate 75 Mg Tablet) 75 mg NG-TUBE DAILY [facility] Stop: 08/16/24 15:59 Last Admin: 08/22/23 09:42 Dose: 75 mg Darbepoetin Abisai (Darbepoetin Abisai In Polysorbat 60 Mcg/Ml Vial) 60 mcg IV- [facility]EEK [facility]; Protocol Stop: 08/12/24 09:04 Last Admin: 08/20/23 13:47 Dose: 60 mcg Dextrose (Dextrose 50% In Water 25 Gm/50 Ml Syringe) 0 gm IV-PUSH PRN PRN PRN Reason: Hypoglycemia Stop: 07/31/24 08:04 Last Admin: 08/19/23 05:25 Dose: 25 gm Diclofenac Sodium (Diclofenac Sodium 1% Gel 100 Gm Tube) 4 gm TOPICAL QID [facility] Stop: 08/16/24 17:59 Last Admin: 08/22/23 09:42 Dose: 4 gm Fentanyl Citrate (Fentanyl/Pf 100 Mcg/2 Ml Vial) 50 mcg IV-PUSH Q2H PRN PRN Reason: tracheostomy pain Last Admin: 08/22/23 09:41 Dose: 50 mcg Ferric Sodium Gluconate Complex (Sodium Ferric Gluconat/Sucrose 62.5 Mg/5 Ml Vial) 125 mg IV-PUSH 3XW KACI Stop: 08/25/23 09:01 Gabapentin (Gabapentin 300 Mg/6 Ml Udc) 100 mg NG-TUBE QPM K[facility]I Stop: 08/16/24 20:59 Last Admin: 08/21/23 21:42 Dose: 100 mg Glucose (Dextrose 40% Gel 15 Gm Tube) 0 gm PO PRN PRN PRN Reason: Hypoglycemia Stop: 07/31/24 08:04 Heparin Sodium (Porcine) (Heparin 5,000 Unit/Ml Vial) 5,000 unit SUBCUT Q8HR KACI Stop: 08/01/24 13:59 Last Admin: 08/22/23 05:34 Dose: 5,000 unit Heparin Sodium (Porcine) (Heparin 10,000 Unit/10 Ml Vial) 4,100 unit IV PRN PRN PRN Reason: Dialysis Stop: 08/07/24 14:32 Last Admin: 08/20/23 13:48 Dose: 4,100 unit Heparin Sodium (Porcine) (Heparin 10,000 Unit/10 Ml Vial) 2,500 unit IV PRN PRN PRN Reason: Dialysis Stop: 08/01/24 09:40 Last Admin: 08/20/23 13:47 Dose: 2,500 unit Heparin Sodium (Porcine) (Heparin 10,000 Unit/10 Ml Vial) 1,500 unit IV PRN PRN PRN Reason: Dialysis Stop: 08/05/24 10:45 Last Admin: 08/20/23 13:48 Dose: 1,500 unit Hydralazine HCl (Hydralazine 20 Mg/Ml Vial) 10 mg IV-PUSH Q4H PRN PRN Reason: Hypertension Stop: 08/07/24 12:07 Last Admin: 08/15/23 04:42 Dose: 10 mg Sodium Chloride (0.9% Sodium Chloride 1,000 Ml) 1,000 mls @ 0 mls/hr MISCELLANE.Q0M PRN PRN Reason: Dialysis Stop: 07/31/24 10:31 Last Infusion: 08/20/23 13:50 Dose: Infused Sodium Chloride (0.9% Sodium Chloride 1,000 Ml) 1,000 mls @ 0 mls/hr MISCELLANE.Q0M PRN PRN Reason: Dialysis Stop: 08/01/24 09:40 Last Infusion: 08/15/23 11:39 Dose: Infused Dexmedetomidine HCl 400 mcg/ (Dextrose) 100 mls @ 4.84 mls/hr IV .[id number] [facility]; Protocol Stop: 08/04/24 10:14 Last Titration: 08/22/23 06:08 Dose: 0 mcg/kg/hr, 0 mls/hr Insulin Aspart (Insulin Aspart 300 Units/3 Ml Insuln.Pen) 0 units SUBCUT Q6HR [facility]; Protocol Stop: 07/31/24 11:59 Last Admin: 08/22/23 05:35 Dose: 3 units Insulin Glargine (Insulin Glargine 300 Units/3 Ml Insuln.Pen) 20 units SUBCUT BID [facility] Stop: 08/19/24 20:59 Last Admin: 08/22/23 09:43 Dose: 20 units Lansoprazole (Lansoprazole Solutab *Nf* 30 Mg Tab.Rap.Dr) 30 mg PEG DAILY [facility] Stop: 08/16/24 08:59 Last Admin: 08/22/23 09:43 Dose: 30 mg Magnesium Hydroxide (Magnesium Hydroxide Susp 30 Ml Udc) 30 ml PO DAILY PRN PRN Reason: Constipation Stop: 08/02/24 22:13 Metoprolol Tartrate (Metoprolol Tartrate 5 Mg/5 Ml Vial) 5 mg IV-PUSH Q4H PRN PRN Reason: Blood Pressure Stop: 08/13/24 12:28 Metoprolol Tartrate (Metoprolol Tartrate 50 Mg Tablet) 50 mg NG-TUBE BID [facility] Stop: 08/15/24 20:59 Last Admin: 08/22/23 09:42 Dose: 50 mg Sodium Chloride (Sodium Chloride 0.9 % 10 Ml Syringe) 0 ml IV-PUSH PRN PRN PRN Reason: Flush Stop: 07/31/24 10:31 Last Admin: 08/20/23 13:48 Dose: 40 ml Sodium Chloride (Sodium Chloride 0.9 % 10 Ml Syringe) 0 ml IV-PUSH PRN PRN PRN Reason: Flush Stop: 08/01/24 09:40 Last Admin: 08/15/23 11:38 Dose: 40 ml Allergies cefepime Allergy (Unknown, Verified 07/10/23 18:46) Hives lisinopril Allergy (Unknown, Verified 07/10/23 18:46) Swelling of Lip/Tongue/Throat, SWELLING metformin Allergy (Unknown, Verified 07/10/23 18:46) Back Pain, KIDNEY PAIN Results - Nephrology Labs 08/21/23 05:47 08/22/23 08:55 Labs: 08/21/23 08/22/23 15:17 08:55 BUN 55 H Creatinine 3.00 H D Phosphorus 4.9 H Albumin 2.5 L Urine Color Dark yellow A Urine Appearance Turbid A Urine pH 5.0 Ur Specific [place] 1.026 Urine Protein 30 H Urine Glucose (UA) Normal Urine Ketones Trace H Urine Occult Blood 2+ H Urine Nitrite Positive H Ur Leukocyte Esterase 3+ H Urine RBC 3-4 Urine WBC 50-100 H Urine Bacteria 4+ H Radiology Impressions Impressions - last 24 hours: Any impression(s) listed above is documentation that was entered by the reading physician into a diagnostic report(s) for Sudeep Diego JR. I have reviewed the report(s) and am incorporating any findings in the treatment plan of this patient where applicable. A&P - Nephrology Assessment/Plan (1) SONYA (acute kidney injury): Assessment/Problem Details: Patient developed SONYA during his previous admission on June 2023 with left foot infection and staph bacteremia with no evidence of recovery currently on dialysis. Baseline creatinine was 1.1 mg/dL. Patient gets dialysis on MWF schedule (2) Acute pulmonary edema: Assessment/Problem Details: Patient presents with shortness of breath and respiratory failure. Chest x-ray showed pulmonary congestion with evidence of bilateral infiltrate. 2D echo showed dilated IVC with abnormal collapsibility suggestive of volume overload. Patient had total -5.5 L with ultrafiltration during hospitalization. (3) Acute hypoxic respiratory failure: Assessment/Problem Details: Patient has bilateral infiltrate on chest x-ray, respiratory swab was positive for influenza A. Patient is currently getting treatment for healthcare associated pneumonia as well since he has recent hospitalization (4) T2DM (type 2 diabetes mellitus): Assessment/Problem Details: He has insulin-dependent type 2 diabetes mellitus. He was taking insulin glargine at home. (5) Elevated troponin level not due to acute coronary syndrome: Assessment/Problem Details: He has a type II SD likely due to demand ischemia in setting of CHF and sepsis. (6) Anemia of renal disease: Assessment/Problem Details: He has anemia in the setting of SONYA with superimposed infection. Patient has elevated ferritin and low iron saturation in setting of infection. Plan * Patient is due for hemodialysis today however has no volume overload, acidosis or hyperkalemia. He still has low urine output that is concentrated and dark. It is not clear if the patient still volume depleted after all that ultrafiltration was done while he has respiratory distress versus ATN. I will skip dialysis today, I will check spot urine for sodium and creatinine for further evaluation of tubular function. If the patient has ATN with elevated FENa, I will DC Santana catheter for now since patient's continue to have cloudy urine with Rajiv glabrata. Dialysis will be done tomorrow as needed * He is currently on micafungin and meropenem. Sputum culture showed Rajiv albicans and urine culture showed Rajiv glabrata. Pharmacy to dose medication based on ESRD status. * Continue current dose of amlodipine and metoprolol. Will decrease the doses if blood pressure drops * Hemoglobin stabilized and currently more than 9 g/dL. He has elevated iron with low iron saturation suggestive of anemia in the setting of acute infection. * Intermittent collar Trials as tolerated by Dr. Garrett for possible extubation in the near future * Monitor daily intake, output and renal panel to adjust medications and dialysis prescription as indicated. Documented By: Sury Winkler MD 08/22/231123 Signed By: <Electronically signed by MD Sury Winkler> 08/22/23 8810 [facility] Work Phone: 1(735) 469-678403-28-2024 Progress note Author Mehul Garrett [facility] August 21, 2023 5:23pm Note Date/Time August 21, 2023 5:2 4pm [facility] [address] [place] [address] Pulmonology Progress Note Signed Patient: Sudeep Diego JR MR#: [id number] : 1950 Acct:[id number] Age/Sex: 72 / M Adm Date: 4 Loc: Room: [address] [place] [address] Type: ADM IN Attending Dr: Arnaldo Thomas MD Copies to: ~ Date of Service: 08/21/2023 Subjective Subjective Narrative: Patient is much more awake and alert today. He is tolerating 4-hour tracheostomy collar trials. He remains extremely weak. Exam Physical Exam Vital Signs: Temp Pulse Resp BP Pulse Ox O2 Del Method O2 Flow Rate 98.7 F 70 26 H 122/56 L 100 Trach Collar 10 08/21/23 09:00 08/21/23 16:27 08/21/23 16:27 08/21/23 11:00 08/21/23 11:00 08/21/23 11:00 08/20/23 20:30 FiO2 30 08/21/23 16:27 Const Nutritional Appearance: average body habitus and overweight Orientation: not alert and not awake HEENT Head: normal to inspection, normocephalic and atraumatic Ears: external ears normal Nose: external nose normal Face and sinus: normal facial exam Eyes Eyelids: eyelids normal Neck Neck: normal visual inspection, no lymphadenopathy and tracheostomy present (cuffed Size 8 Shiley tracheostomy) Chest Chest palpation & inspection: normal inspection of the chest Resp Auscultation: clear to auscultation bilaterally, no rales, no rhonchi and no wheezes Cardio Rate: regular rate Rhythm: regular rhythm Heart Sounds: S1 normal, S2 normal, no gallops, no murmurs and no rubs GI Inspection: normal to inspection Palpation: soft and nontender Auscultation: hypoactive bowel sounds Rectal Exam: deferred General: deferred Skin General: no rashes or lesions noted (warm and dry) Extrem General: no pedal edema and amputation noted Transmetatarsal: left Objective Intake and Output I&O - Last 24 Hours: Intake & Output 08/21/23 08/21/23 08/21/23 07:59 15:59 23:59 Intake Total 420 / 420 Output Total 50 / 50 Balance 370 / 370 Weight 183 lb 13.848 oz Labs 08/21/23 05:47 08/21/23 05:47 Assessment/Plan Assessment/Plan (1) Acute hypoxic respiratory failure: (2) Acute pulmonary edema: (3) ESRD (end stage renal disease): (4) T2DM (type 2 diabetes mellitus): (5) PAD (peripheral artery disease): Plan Hospital Day #20 for patient with acute on chronic respiratory failure on Micafungin and on daytime pressure support and nighttime volume control with nocturnal mechanical ventilatory support. Patient continues with thrombocytosisand mild leukocytosis which has been stable without fever. We will continue spontaneous breathing trials. Note decreased iron and iron saturations though with increased ferritin which may be in part related to inflammation as an acutephase reactant. Case was discussed with nephrology and we will try to give a little extra iron supplementation to hopefully decrease some of the patient's restless legs. Otherwise, continue supportive care and weaning with patient needing primarily rehabilitation. Case was discussed with infectious disease plan consultant with concerns for possible C. difficile. We await expedited appeal after placement at long-term acute care facility was rejected. Documented By: Mehul Garrett MD 4 1720 Signed By: <Electronically signed by MD Mehul Garrett> 08/21/23 1723 [facility] Work Phone: [phone]) 443-795403-28-2024 Progress note Author Arnaldo Thomas [facility] August 21, 2023 12:50pm Note Date/Time August 21, 2023 12: 50pm [facility] [address] [place] [address] Hospitalist Progress Note Signed Patient: Sudeep Diego JR MR#: [id number] : 1950 Acct:[id number] Age/Sex: 72 / M Adm Date: 4 Loc: Room: [address] [place] [address] Type: ADM IN Attending Dr: Arnaldo Thomas MD Copies to: ~ Date of Service: 08/21/2023 Subjective Subjective Narrative: Patient was resting comfortably on trach collar with no signs of respiratory distress. Once awake he denies any complaint. Exam Physical Exam Vital Signs: Temp Pulse Resp BP Pulse Ox O2 Del Method O2 Flow Rate 98.7 F 54 L 18 122/56 L 100 Trach Collar 10 08/21/23 09:00 08/21/23 11:00 08/21/23 11:00 08/21/23 11:00 08/21/23 11:00 08/21/23 11:00 08/20/23 20:30 FiO2 30 08/21/23 11:51 Const General: cooperative Orientation: alert and awake Other: Able to follow simple commands and does not appear to be in acute distress Resp Effort & Inspection: normal respiratory effort Auscultation: no rales, no rhonchi and no wheezes Neuro General: patient alert, patient awake, moves all extremities and no focal motor deficits Extrem General: no clubbing, cyanosis or edema and no calf tenderness Objective Lab Results 08/21/23 05:47 08/21/23 05:47 Meds Allergies and Active Meds Allergies cefepime Allergy (Unknown, Verified 07/10/23 18:46) Hives lisinopril Allergy (Unknown, Verified 07/10/23 18:46) Swelling of Lip/Tongue/Throat, SWELLING metformin Allergy (Unknown, Verified 07/10/23 18:46) Back Pain, KIDNEY PAIN Active Meds: Active Medications Generic Name Dose Route Start Last Admin Trade Name Freq PRN Reason Stop Dose Admin Acetaminophen 650 mg 08/13/23 14:00 08/21/23 09:01 Acetaminophen 650 Mg/20.3 Ml Oral.Susp NG-TUBE 08/12/24 13:59 650 mg Q6H PRN Administration Fever or Pain Albuterol 6 puff 08/01/23 12:00 08/21/23 12:29 Albuterol Hfa 200 Puff/18 Gm Inhaler VENT 07/31/24 11:59 6 puff Q6HR KACI Administration Amlodipine Besylate 10 mg 08/17/23 09:00 08/21/23 09:02 Amlodipine 10 Mg Tablet OG-TUBE 08/16/24 08:59 10 mg DAILY [facility]ACI Administration Aspirin 81 mg 08/17/23 16:00 08/21/23 09:02 Aspirin 81 Mg Tab.Chew NG-TUBE 08/16/24 15:59 81 mg DAILY KACI Administration Clopidogrel Bisulfate 75 mg 08/17/23 16:00 08/21/23 09:02 Clopidogrel Bisulfate 75 Mg Tablet NG-TUBE 08/16/24 15:59 75 mg DAILY KACI Administration Darbepoetin Abisai 60 mcg 08/13/23 09:05 08/20/23 13:47 Darbepoetin Abisai In Polysorbat 60 Mcg/Ml Vial IV-PUSH 08/12/24 09:04 60 mcg QWEEK KACI Administration Protocol Dextrose 0 gm 08/01/23 08:05 08/19/23 05:25 Dextrose 50% In Water 25 Gm/50 Ml Syringe IV-PUSH 07/31/24 08:04 25 gm PRN PRN Administration Hypoglycemia Diclofenac Sodium 4 gm 08/17/23 18:00 08/21/23 09:02 Diclofenac Sodium 1% Gel 100 Gm Tube TOPICAL 08/16/24 17:59 4 gm QID KACI Administration Fentanyl Citrate 50 mcg 08/13/23 14:00 08/20/23 17:57 Fentanyl/Pf 100 Mcg/2 Ml Vial IV-PUSH 50 mcg Q2H PRN Administration tracheostomy pain Ferric Sodium Gluconate Complex 125 mg 08/22/23 09:00 Sodium Ferric Gluconat/Sucrose 62.5 Mg/5 Ml Vial IV-PUSH 08/25/23 09:01 3XW KACI Gabapentin 100 mg 08/18/23 12:35 08/20/23 20:49 Gabapentin 300 Mg/6 Ml Udc NG-TUBE 08/16/24 20:59 100 mg QPM KACI Administration Glucose 0 gm 08/01/23 08:05 Dextrose 40% Gel 15 Gm Tube PO 07/31/24 08:04 PRN PRN Hypoglycemia Heparin Sodium (Porcine) 5,000 unit 08/02/23 14:00 08/21/23 05:34 Heparin 5,000 Unit/Ml Vial SUBCUT 08/01/24 13:59 5,000 unit Q8HR KACI Administration Heparin Sodium (Porcine) 4,100 unit 08/08/23 14:33 08/20/23 13:48 Heparin 10,000 Unit/10 Ml Vial IV 08/07/24 14:32 4,100 unit PRN PRN Administration Dialysis Heparin Sodium (Porcine) 2,500 unit 08/15/23 09:09 08/20/23 13:47 Heparin 10,000 Unit/10 Ml Vial IV 08/01/24 09:40 2,500 unit PRN PRN Administration Dialysis Heparin Sodium (Porcine) 1,500 unit 08/15/23 09:09 08/20/23 13:48 Heparin 10,000 Unit/10 Ml Vial IV 08/05/24 10:45 1,500 unit PRN PRN Administration Dialysis Hydralazine HCl 10 mg 08/08/23 12:08 08/15/23 04:42 Hydralazine 20 Mg/Ml Vial IV-PUSH 08/07/24 12:07 10 mg Q4H PRN Administration Hypertension Sodium Chloride 1,000 mls @ 0 mls/hr 08/01/23 10:32 08/20/23 13:50 0.9% Sodium Chloride 1,000 Ml MISCELLANE 07/31/24 10:31 Infused .Q0M PRN Infusion Dialysis As Directed Sodium Chloride 1,000 mls @ 0 mls/hr 08/02/23 09:41 08/15/23 11:39 0.9% Sodium Chloride 1,000 Ml MISCELLANE 08/01/24 09:40 Infused .Q0M PRN Infusion Dialysis As Directed Dexmedetomidine HCl 400 mcg/ 100 mls @ 4.84 mls/hr 08/05/23 10:15 08/21/23 07:44 Dextrose IV 08/04/24 10:14 Not Given .[id number] [facility] Protocol 0.2 MCG/KG/HR Micafungin Sodium 100 mg/ 105 mls @ 105 mls/hr 08/15/23 13:00 08/20/23 19:00 Sodium Chloride IV 08/21/23 16:59 Infused Q24H [facility] Infusion Insulin Aspart 0 units 08/01/23 12:00 08/21/23 11:44 Insulin Aspart 300 Units/3 Ml Insuln.Pen SUBCUT 07/31/24 11:59 Not Given Q6HR [facility] Protocol Insulin Glargine 20 units 08/20/23 21:00 08/21/23 09:02 Insulin Glargine 300 Units/3 Ml Insuln.Pen SUBCUT 08/19/24 20:59 20 units BID KACI Administration Lansoprazole 30 mg 08/17/23 09:00 08/21/23 09:02 Lansoprazole Solutab *Nf* 30 Mg Tab.Rap. PEG 08/16/24 08:59 30 mg DAILY [facility]I Administration Magnesium Hydroxide 30 ml 08/03/23 22:14 Magnesium Hydroxide Susp 30 Ml Udc PO 08/02/24 22:13 DAILY PRN Constipation Metoprolol Tartrate 5 mg 08/14/23 12:29 Metoprolol Tartrate 5 Mg/5 Ml Vial IV-PUSH 08/13/24 12:28 Q4H PRN Blood Pressure Metoprolol Tartrate 50 mg 08/16/23 21:00 08/21/23 09:02 Metoprolol Tartrate 50 Mg Tablet NG-TUBE 08/15/24 20:59 50 mg BID [facility]I Administration Sodium Chloride 0 ml 08/01/23 10:32 08/20/23 13:48 Sodium Chloride 0.9 % 10 Ml Syringe IV-PUSH 07/31/24 10:31 40 ml PRN PRN Administration Flush Sodium Chloride 0 ml 08/02/23 09:41 08/15/23 11:38 Sodium Chloride 0.9 % 10 Ml Syringe IV-PUSH 08/01/24 09:40 40 ml PRN PRN Administration Flush A&P - Hospitalist Assessment/Plan (1) Acute hypoxic respiratory failure: (2) ESRD (end stage renal disease): (3) T2DM (type 2 diabetes mellitus): (4) Hyperlipemia: (5) HTN (hypertension): (6) PAD (peripheral artery disease): (7) Encephalopathy: (8) Anemia of renal disease: (9) Thrombocytosis: Plan Patient has been tolerating trach collar intermittently. As per the nurse he slept well last night on Precedex. He had 2 loose bowel movement with plan to send stool for C. difficile if continues to have diarrhea. He will be completing 7 days of micafungin today. Patient receiving IV iron as ordered by nephrology. Pittore failure being managed by pulmonary service. Continue aspirin, Plavix, amlodipine and gabapentin. On basal insulin with sliding scalecoverage blood glucose well-controlled. Continue subcutaneous heparin for DVT prophylaxis. Plan to discharge to LTAC once approved. Documented By: Arnaldo Thomas MD 08/21/23 1243 Signed By: <Electronically signed by Arnaldo Thomas MD> 08/21/23 1250 [facility] Work Phone: 1([phone]) 360-667803-28-2024 Progress note Author Sury Winkler [facility] August 21, 2023 11:17am Note Date/Time August 21, 2023 11: 12am [facility] [address] [place] [address] Nephrology Progress Note Signed Patient: Sudeep Diego JR MR#: [id number] : 1950 Acct:[id number] Age/Sex: 72 / M Adm Date: 4 Loc: Room: [address] [place] [address] Type: ADM IN Attending Dr: Arnaldo Thomas MD Copies to: ~ Date of Service: 08/21/2023 Subjective Subjective Narrative: Mr. Diego is a 72-year-old male with history of DM2, HTN, PAD and prostate cancer. Patient was recently started on hemodialysis during his admission in June 2023 for SONYA possibly related to ATN versus Staph aureus glomerulonephritis. Patient had left diabetic wound s/p tarsometatarsal amputation. Creatinine has increased up to 5 mg/dL with no evidence of recovery. Patient was [facility] to [facility]. Patient presented to [facility] from his nursing facility with severe shortness of breath requiring intubation. Chest x-ray showed bilateral pulmonary infiltrate with possible pulmonary edema. Subsequently the patient was transferred to [facility] and he continues to be on vent. Respiratory swab showed evidence of influenza A. Patient was treated for healthcare associated pneumonia with vancomycin and meropenem. Troponin was found to be elevated up to 1700. Hemoglobin was only 6.5 g/dL in setting of infection. Cardiology evaluated the patient and no intervention is planned at this point atthe patient most likely has type II demand decreased cardiac perfusion. Patientrequired prolonged hospitalization and eventually he underwent tracheostomy and is still on ventilator. Nephrology was consulted for ESRD and dialysis. Interim History: Patient up in the bed, awake, still on intermittent vent through tracheostomy with intermittent collar trial to improve his respiratory muscles. Patient is awake and able to communicate. Mental functions continue to improve daily. He is off Seroquel. Unfortunately, patient continues to be oliguric despite low serum creatinine 2.5to 3 mg/dL. He had hemodialysis yesterday with minimal fluid removal 1 L only. He is breathing comfortably. Patient has low hemoglobin 9.4 g/dL however he has been stable. He has elevatedferritin 938 however iron saturation is only 12.3%. He continues to have mild leukocytosis currently on meropenem and micafungin forCandida glabrata that found in the urine. Exam Physical Exam Vital Signs: Temp Pulse Resp BP Pulse Ox O2 Del Method O2 Flow Rate 37.1 C 55 L 18 118/59 L 100 Trach Collar 10 08/21/23 09:00 08/21/23 10:00 08/21/23 10:00 08/21/23 10:00 08/21/23 10:00 08/21/23 10:00 08/20/23 20:30 FiO2 40 08/21/23 10:00 Narrative: Constitutional: Looks ill, awake and able to answer questions even though he is on ventilator with tracheostomy HEENT: mild pallor with no jaundice or cyanosis. Neck: He has tracheostomy on vent. Cardiovascular: RRR, normal S1-S2, no gallop or rub, No JVD Respiratory: Diminished breath sounds with scattered crackles in both lung ashraf. Gastrointestinal: Soft, non tender Extremities: Still has edema however it is improved with ultrafiltration Skin: No rashes or bruises Neurology: Awake, alert and oriented x 3. Able to answer questions and move allextremities. Vascular access: Right IJ tunneled hemodialysis catheter with clean exit site. Objective Intake and Output I&O: Intake & Output 08/18/23 08/19/23 08/20/23 08/21/23 23:59 23:59 23:59 23:59 Intake Total 1305 / 1305 1365 / 1365 1835 / 1835 420 / 420 Output Total 1672 / 1672 175 / 175 1623 / 1623 50 / 50 Balance -367 / -367 1190 / 1190 212 / 212 370 / 370 Weight 86.4 kg 84.3 kg 84.6 kg 83.4 kg Meds and Allergies Meds: Active Medications Acetaminophen (Acetaminophen 650 Mg/20.3 Ml Oral.Susp) 650 mg NG-TUBE Q6H PRN PRN Reason: Fever or Pain Stop: 08/12/24 13:59 Last Admin: 08/21/23 09:01 Dose: 650 mg Albuterol (Albuterol Hfa 200 Puff/18 Gm Inhaler) 6 puff VENT Q6HR [facility] Stop: 07/31/24 11:59 Last Admin: 08/21/23 05:20 Dose: 6 puff Amlodipine Besylate (Amlodipine 10 Mg Tablet) 10 mg OG-TUBE DAILY [facility] Stop: 08/16/24 08:59 Last Admin: 08/21/23 09:02 Dose: 10 mg Aspirin (Aspirin 81 Mg Tab.Chew) 81 mg NG-TUBE DAILY [facility] Stop: 08/16/24 15:59 Last Admin: 08/21/23 09:02 Dose: 81 mg Clopidogrel Bisulfate (Clopidogrel Bisulfate 75 Mg Tablet) 75 mg NG-TUBE DAILY [facility] Stop: 08/16/24 15:59 Last Admin: 08/21/23 09:02 Dose: 75 mg Darbepoetin Abisai (Darbepoetin Abisai In Polysorbat 60 Mcg/Ml Vial) 60 mcg IV- PUSHQWEEK [facility]; Protocol Stop: 08/12/24 09:04 Last Admin: 08/20/23 13:47 Dose: 60 mcg Dextrose (Dextrose 50% In Water 25 Gm/50 Ml Syringe) 0 gm IV-PUSH PRN PRN PRN Reason: Hypoglycemia Stop: 07/31/24 08:04 Last Admin: 08/19/23 05:25 Dose: 25 gm Diclofenac Sodium (Diclofenac Sodium 1% Gel 100 Gm Tube) 4 gm TOPICAL QID [facility] Stop: 08/16/24 17:59 Last Admin: 08/21/23 09:02 Dose: 4 gm Fentanyl Citrate (Fentanyl/Pf 100 Mcg/2 Ml Vial) 50 mcg IV-PUSH Q2H PRN PRN Reason: tracheostomy pain Last Admin: 08/20/23 17:57 Dose: 50 mcg Ferric Sodium Gluconate Complex (Sodium Ferric Gluconat/Sucrose 62.5 Mg/5 Ml Vial) 62.5 mg IV-PUSH We@0900 [facility] Stop: 08/12/24 09:04 Last Admin: 08/20/23 17:57 Dose: Not Given Gabapentin (Gabapentin 300 Mg/6 Ml Udc) 100 mg NG-TUBE QPM [facility] Stop: 08/16/24 20:59 Last Admin: 08/20/23 20:49 Dose: 100 mg Glucose (Dextrose 40% Gel 15 Gm Tube) 0 gm PO PRN PRN PRN Reason: Hypoglycemia Stop: 07/31/24 08:04 Heparin Sodium (Porcine) (Heparin 5,000 Unit/Ml Vial) 5,000 unit SUBCUT Q8HR [facility] Stop: 08/01/24 13:59 Last Admin: 08/21/23 05:34 Dose: 5,000 unit Heparin Sodium (Porcine) (Heparin 10,000 Unit/10 Ml Vial) 4,100 unit IV PRN PRN PRN Reason: Dialysis Stop: 08/07/24 14:32 Last Admin: 08/20/23 13:48 Dose: 4,100 unit Heparin Sodium (Porcine) (Heparin 10,000 Unit/10 Ml Vial) 2,500 unit IV PRN PRN PRN Reason: Dialysis Stop: 08/01/24 09:40 Last Admin: 08/20/23 13:47 Dose: 2,500 unit Heparin Sodium (Porcine) (Heparin 10,000 Unit/10 Ml Vial) 1,500 unit IV PRN PRN PRN Reason: Dialysis Stop: 08/05/24 10:45 Last Admin: 08/20/23 13:48 Dose: 1,500 unit Hydralazine HCl (Hydralazine 20 Mg/Ml Vial) 10 mg IV-PUSH Q4H PRN PRN Reason: Hypertension Stop: 08/07/24 12:07 Last Admin: 08/15/23 04:42 Dose: 10 mg Sodium Chloride (0.9% Sodium Chloride 1,000 Ml) 1,000 mls @ 0 mls/hr MISCELLANE.Q0M PRN PRN Reason: Dialysis Stop: 07/31/24 10:31 Last Infusion: 08/20/23 13:50 Dose: Infused Sodium Chloride (0.9% Sodium Chloride 1,000 Ml) 1,000 mls @ 0 mls/hr MISCELLANE.Q0M PRN PRN Reason: Dialysis Stop: 08/01/24 09:40 Last Infusion: 08/15/23 11:39 Dose: Infused Dexmedetomidine HCl 400 mcg/ (Dextrose) 100 mls @ 4.84 mls/hr IV .[id number] [facility]; Protocol Stop: 08/04/24 10:14 Last Admin: 08/21/23 07:44 Dose: Not Given Micafungin Sodium 100 mg/ (Sodium Chloride) 105 mls @ 105 mls/hr IV Q24H [facility] Stop: 08/21/23 16:59 Last Infusion: 08/20/23 19:00 Dose: Infused Insulin Aspart (Insulin Aspart 300 Units/3 Ml Insuln.Pen) 0 units SUBCUT Q6HR [facility]; Protocol Stop: 07/31/24 11:59 Last Admin: 08/21/23 05:34 Dose: 3 units Insulin Glargine (Insulin Glargine 300 Units/3 Ml Insuln.Pen) 20 units SUBCUT BID [facility] Stop: 08/19/24 20:59 Last Admin: 08/21/23 09:02 Dose: 20 units Lansoprazole (Lansoprazole Solutab *Nf* 30 Mg Tab.Rap.) 30 mg PEG DAILY [facility] Stop: 08/16/24 08:59 Last Admin: 08/21/23 09:02 Dose: 30 mg Magnesium Hydroxide (Magnesium Hydroxide Susp 30 Ml Udc) 30 ml PO DAILY PRN PRN Reason: Constipation Stop: 08/02/24 22:13 Metoprolol Tartrate (Metoprolol Tartrate 5 Mg/5 Ml Vial) 5 mg IV-PUSH Q4H PRN PRN Reason: Blood Pressure Stop: 08/13/24 12:28 Metoprolol Tartrate (Metoprolol Tartrate 50 Mg Tablet) 50 mg NG-TUBE BID [facility] Stop: 08/15/24 20:59 Last Admin: 08/21/23 09:02 Dose: 50 mg Sodium Chloride (Sodium Chloride 0.9 % 10 Ml Syringe) 0 ml IV-PUSH PRN PRN PRN Reason: Flush Stop: 07/31/24 10:31 Last Admin: 08/20/23 13:48 Dose: 40 ml Sodium Chloride (Sodium Chloride 0.9 % 10 Ml Syringe) 0 ml IV-PUSH PRN PRN PRN Reason: Flush Stop: 08/01/24 09:40 Last Admin: 08/15/23 11:38 Dose: 40 ml Allergies cefepime Allergy (Unknown, Verified 07/10/23 18:46) Hives lisinopril Allergy (Unknown, Verified 07/10/23 18:46) Swelling of Lip/Tongue/Throat, SWELLING metformin Allergy (Unknown, Verified 07/10/23 18:46) Back Pain, KIDNEY PAIN Results - Nephrology Labs 08/21/23 05:47 08/21/23 05:47 Labs: 08/21/23 05:47 BUN 36 H D Creatinine 2.13 H Iron Saturation 12.3 L Ferritin 938.1 H Radiology Impressions Impressions - last 24 hours: Any impression(s) listed above is documentation that was entered by the reading physician into a diagnostic report(s) for Sudeep Diego JR. I have reviewed the report(s) and am incorporating any findings in the treatment plan of this patient where applicable. A&P - Nephrology Assessment/Plan (1) SONYA (acute kidney injury): Assessment/Problem Details: Patient developed SONYA during his previous admission on June 2023 with left foot infection and staph bacteremia with no evidence of recovery currently on dialysis. Baseline creatinine was 1.1 mg/dL. Patient gets dialysis on MWF schedule (2) Acute pulmonary edema: Assessment/Problem Details: Patient presents with shortness of breath and respiratory failure. Chest x-ray showed pulmonary congestion with evidence of bilateral infiltrate. 2D echo showed dilated IVC with abnormal collapsibility suggestive of volume overload. Patient had total -5.5 L with ultrafiltration during hospitalization. (3) Acute hypoxic respiratory failure: Assessment/Problem Details: Patient has bilateral infiltrate on chest x-ray, respiratory swab was positive for influenza A. Patient is currently getting treatment for healthcare associated pneumonia as well since he has recent hospitalization (4) T2DM (type 2 diabetes mellitus): Assessment/Problem Details: He has insulin-dependent type 2 diabetes mellitus. He was taking insulin glargine at home. (5) Elevated troponin level not due to acute coronary syndrome: Assessment/Problem Details: He has a type II SD likely due to demand ischemia in setting of CHF and sepsis. (6) Anemia of renal disease: Assessment/Problem Details: He has anemia in the setting of SONYA with superimposed infection. Patient has elevated ferritin and low iron saturation in setting of infection. Plan * Patient had hemodialysis yesterday. No hyperkalemia or acidosis. He has no edema and respiratory status is improving. No need for dialysis or extra ultrafiltration. Will continue to monitor. * Recheck urine analysis for evaluation of current renal status. * He is currently on micafungin and meropenem. Sputum culture showed Rajiv albicans and urine culture showed Rajiv glabrata. Pharmacy to dose medication based on ESRD status. * Continue current dose of the metoprolol this can be decreased if blood pressure drops. * Hemoglobin stabilized and currently more than 9 g/dL. He has elevated iron with low iron saturation suggestive of anemia in the setting of acute infection. * Intermittent collar Trials as tolerated by Dr. Garrett for possible extubation in the near future per * Monitor daily intake, output and renal panel to adjust medications and dialysis prescription as indicated. Documented By: Sury Winkler MD 08/21/23 1110 Signed By: <Electronically signed by MD Sury Winkler> 08/21/23 111 [facility] Work Phone: [phone] Progress note Author Michael Ramírez [facility] August 21, 2023 9:00am Note Date/Time August 21, 2023 8:4 9am [facility] [address] [place] [address] Infect. Disease Progress Note Signed Patient: Sudeep Diego JR MR#: [id number] : 1950 Acct:[id number] Age/Sex: 72 / M Adm Date: 4 Loc: Room: [address] [place] [address] Type: ADM IN Attending Dr: Arnaldo Thomas MD Copies to: ~ Date of Service: 08/21/2023 Subjective Interval history: Patient is comfortable today but does point to his head as if he is having headache. Otherwise denies nausea vomiting. Denies any shortness of breath. Coughing occasionally. Denies abdominal pain. Nurse tells me he had 1 significant loose bowel movement that soaked into everything. Exam Physical Exam Vital Signs: Temp Pulse Resp BP Pulse Ox O2 Del Method O2 Flow Rate 98.9 F 58 L 18 99/54 L 100 Trach Collar 10 08/20/23 22:00 08/21/23 08:00 08/21/23 08:00 08/21/23 08:00 08/21/23 08:00 08/21/23 08:00 08/20/23 20:30 FiO2 40 08/21/23 08:00 Narrative: HD Cath R chest 08/01/23 Const General: cooperative, comfortable and no acute distress Orientation: alert, awake and oriented x3 HEENT Head: normal to inspection Nose: external nose normal (NGT) Face and sinus: normal facial exam Eyes General: appearance normal, both eyes and all related structures Neck Neck: not normal to visual inspection (trach) Chest Chest palpation & inspection: normal inspection of the chest Resp Effort & Inspection: normal respiratory effort Auscultation: diminished lung sounds Cardio Rate: regular rate Rhythm: regular rhythm GI Inspection: normal to inspection Auscultation: normal bowel sounds Skin General: other (TMA site with dressing) Neuro General: patient alert, patient awake and patient oriented x3 Extrem General: abnormal to inspection (see skin) Objective Labs CBC/BMP: CBC, BMP 08/21/23 05:47 Corrected WBC 15.3 H Uncorrected WBC Count 15.3 H RBC 3.17 L Hgb 9.4 L Hct 28.3 L Plt Count 740 H Sodium 132 L Potassium 4.8 Chloride 96 L Carbon Dioxide 30.4 Anion Gap 10.4 BUN 36 H D Creatinine 2.13 H Calcium 8.3 L Labs: 08/21/23 05:47 BUN 36 H D Creatinine 2.13 H Microbiology Microbiology: Microbiology - Results from entire visit 08/11/23 09:26 Blood - Left Antecubital Blood Culture - Final NO GROWTH 5 DAYS 08/11/23 09:25 Blood - Left Hand Blood Culture - Final NO GROWTH 5 DAYS 08/13/23 14:18 Sputum - Endotrachael Aerobic Culture - Final Light Normal Respiratory Suyapa 2 Days 08/13/23 14:18 Sputum - Endotrachael Gram Stain - Final 08/12/23 09:50 Sputum - Endotrachael Aerobic Culture - Preliminary Rajiv albicans Fungal like structure 08/12/23 09:50 Sputum - Endotrachael Gram Stain - Final 08/11/23 19:05 Santana Port Urine Culture - Final Rajiv glabrata 08/12/23 09:56 Nasopharyngeal Respiratory Panel (PCR) - Final 08/01/23 07:33 Blood - Right Antecubital Blood Culture - Final NO GROWTH 5 DAYS 08/01/23 07:40 Blood - Left Hand Blood Culture - Final NO GROWTH 5 DAYS 08/02/23 03:30 Urine - Santana Catheter Urine Culture - Final No Growth 2 Days 08/01/23 09:00 Sputum - Endotrachael Aerobic Culture - Final Rajiv dubliniensis 08/01/23 09:00 Sputum - Endotrachael Gram Stain - Final 08/01/23 09:30 Nasopharyngeal Respiratory Panel (PCR) - Final Allergies and Medications Allergies and Active Meds Allergies cefepime Allergy (Unknown, Verified 07/10/23 18:46) Hives lisinopril Allergy (Unknown, Verified 07/10/23 18:46) Swelling of Lip/Tongue/Throat, SWELLING metformin Allergy (Unknown, Verified 07/10/23 18:46) Back Pain, KIDNEY PAIN Active Medications Acetaminophen (Acetaminophen 650 Mg/20.3 Ml Oral.Susp) 650 mg NG-TUBE Q6H PRN PRN Reason: Fever or Pain Stop: 08/12/24 13:59 Last Admin: 08/20/23 17:58 Dose: 650 mg Albuterol (Albuterol Hfa 200 Puff/18 Gm Inhaler) 6 puff VENT Q6HR [facility] Stop: 07/31/24 11:59 Last Admin: 08/21/23 05:20 Dose: 6 puff Amlodipine Besylate (Amlodipine 10 Mg Tablet) 10 mg OG-TUBE DAILY [facility] Stop: 08/16/24 08:59 Last Admin: 08/20/23 08:19 Dose: 10 mg Aspirin (Aspirin 81 Mg Tab.Chew) 81 mg NG-TUBE DAILY [facility] Stop: 08/16/24 15:59 Last Admin: 08/20/23 08:19 Dose: 81 mg Clopidogrel Bisulfate (Clopidogrel Bisulfate 75 Mg Tablet) 75 mg NG-TUBE DAILY [facility] Stop: 08/16/24 15:59 Last Admin: 08/20/23 08:19 Dose: 75 mg Darbepoetin Abisai (Darbepoetin Abisai In Polysorbat 60 Mcg/Ml Vial) 60 mcg IV- PUSHQWEEK [facility]; Protocol Stop: 08/12/24 09:04 Last Admin: 08/20/23 13:47 Dose: 60 mcg Dextrose (Dextrose 50% In Water 25 Gm/50 Ml Syringe) 0 gm IV-PUSH PRN PRN PRN Reason: Hypoglycemia Stop: 07/31/24 08:04 Last Admin: 08/19/23 05:25 Dose: 25 gm Diclofenac Sodium (Diclofenac Sodium 1% Gel 100 Gm Tube) 4 gm TOPICAL QID [facility] Stop: 08/16/24 17:59 Last Admin: 08/20/23 21:14 Dose: Not Given Fentanyl Citrate (Fentanyl/Pf 100 Mcg/2 Ml Vial) 50 mcg IV-PUSH Q2H PRN PRN Reason: tracheostomy pain Last Admin: 08/20/23 17:57 Dose: 50 mcg Ferric Sodium Gluconate Complex (Sodium Ferric Gluconat/Sucrose 62.5 Mg/5 Ml Vial) 62.5 mg IV-PUSH We@0900 [facility] Stop: 08/12/24 09:04 Last Admin: 08/20/23 17:57 Dose: Not Given Gabapentin (Gabapentin 300 Mg/6 Ml Udc) 100 mg NG-TUBE QPM [facility] Stop: 08/16/24 20:59 Last Admin: 08/20/23 20:49 Dose: 100 mg Glucose (Dextrose 40% Gel 15 Gm Tube) 0 gm PO PRN PRN PRN Reason: Hypoglycemia Stop: 07/31/24 08:04 Heparin Sodium (Porcine) (Heparin 5,000 Unit/Ml Vial) 5,000 unit SUBCUT Q8HR [facility] Stop: 08/01/24 13:59 Last Admin: 08/21/23 05:34 Dose: 5,000 unit Heparin Sodium (Porcine) (Heparin 10,000 Unit/10 Ml Vial) 4,100 unit IV PRN PRN PRN Reason: Dialysis Stop: 08/07/24 14:32 Last Admin: 08/20/23 13:48 Dose: 4,100 unit Heparin Sodium (Porcine) (Heparin 10,000 Unit/10 Ml Vial) 2,500 unit IV PRN PRN PRN Reason: Dialysis Stop: 08/01/24 09:40 Last Admin: 08/20/23 13:47 Dose: 2,500 unit Heparin Sodium (Porcine) (Heparin 10,000 Unit/10 Ml Vial) 1,500 unit IV PRN PRN PRN Reason: Dialysis Stop: 08/05/24 10:45 Last Admin: 08/20/23 13:48 Dose: 1,500 unit Hydralazine HCl (Hydralazine 20 Mg/Ml Vial) 10 mg IV-PUSH Q4H PRN PRN Reason: Hypertension Stop: 08/07/24 12:07 Last Admin: 08/15/23 04:42 Dose: 10 mg Sodium Chloride (0.9% Sodium Chloride 1,000 Ml) 1,000 mls @ 0 mls/hr MISCELLANE.Q0M PRN PRN Reason: Dialysis Stop: 07/31/24 10:31 Last Infusion: 08/20/23 13:50 Dose: Infused Sodium Chloride (0.9% Sodium Chloride 1,000 Ml) 1,000 mls @ 0 mls/hr MISCELLANE.Q0M PRN PRN Reason: Dialysis Stop: 08/01/24 09:40 Last Infusion: 08/15/23 11:39 Dose: Infused Dexmedetomidine HCl 400 mcg/ (Dextrose) 100 mls @ 4.84 mls/hr IV .[id number] [facility]; Protocol Stop: 08/04/24 10:14 Last Admin: 08/21/23 07:44 Dose: Not Given Micafungin Sodium 100 mg/ (Sodium Chloride) 105 mls @ 105 mls/hr IV Q24H [facility] Stop: 08/21/23 16:59 Last Infusion: 08/20/23 19:00 Dose: Infused Insulin Aspart (Insulin Aspart 300 Units/3 Ml Insuln.Pen) 0 units SUBCUT Q6HR [facility]; Protocol Stop: 07/31/24 11:59 Last Admin: 08/21/23 05:34 Dose: 3 units Insulin Glargine (Insulin Glargine 300 Units/3 Ml Insuln.Pen) 20 units SUBCUT BID [facility] Stop: 08/19/24 20:59 Last Admin: 08/20/23 20:50 Dose: 20 units Lansoprazole (Lansoprazole Solutab *Nf* 30 Mg Tab.Rap.Dr) 30 mg PEG DAILY [facility] Stop: 08/16/24 08:59 Last Admin: 08/20/23 08:20 Dose: 30 mg Magnesium Hydroxide (Magnesium Hydroxide Susp 30 Ml Udc) 30 ml PO DAILY PRN PRN Reason: Constipation Stop: 08/02/24 22:13 Metoprolol Tartrate (Metoprolol Tartrate 5 Mg/5 Ml Vial) 5 mg IV-PUSH Q4H PRN PRN Reason: Blood Pressure Stop: 08/13/24 12:28 Metoprolol Tartrate (Metoprolol Tartrate 50 Mg Tablet) 50 mg NG-TUBE BID [facility] Stop: 08/15/24 20:59 Last Admin: 08/20/23 20:48 Dose: 50 mg Sodium Chloride (Sodium Chloride 0.9 % 10 Ml Syringe) 0 ml IV-PUSH PRN PRN PRN Reason: Flush Stop: 07/31/24 10:31 Last Admin: 08/20/23 13:48 Dose: 40 ml Sodium Chloride (Sodium Chloride 0.9 % 10 Ml Syringe) 0 ml IV-PUSH PRN PRN PRN Reason: Flush Stop: 08/01/24 09:40 Last Admin: 08/15/23 11:38 Dose: 40 ml A&P - Infectious Disease Assessment/Plan (1) Leukocytosis: (2) Respiratory failure: (3) Osteomyelitis of left foot: (4) Thrombocytosis: Plan His meropenem was discontinued Wednesday 08/16 as he had been on and off this medication 2 times during this hospital stay. He is continuing micafungin for now given the Rajiv glabrata from his urine but not too convinced his sputum warrants Rx. To finish 7 days. Today is last day. As for the fungal like structure I would anticipate given the lack of CT scan findings concerning for a fungal infection would think this is a colonizer as well. Patient's white count had improved but today significant 3. Nurse mentions thathe had a significant loose bowel movement that soaked through and was pure liquid. If this continues can send stool for C. difficile. Patient continues to have high platelet count. Clinically only complains of a headache. Nurse isgoing to get him some Tylenol. Documented By: Michael Ramírez MD 08/21/23 0846 Signed By: <Electronically signed by MD Michael Ramírez> 08/21/23 0900 [facility] Work Phone: [phone]) 545-494503-27-2024 Progress note Author Mehul Garrett [facility] August 20, 2023 4:52pm Note Date/Time August 20, 2023 8:2 4am [facility] [address] [place] [address] Pulmonology Progress Note Signed Patient: Sudeep Diego JR MR#: [id number] : 1950 Acct:[id number] Age/Sex: 72 / M Adm Date: 4 Loc: Room: [address] [place] [address] Type: ADM IN Attending Dr: Arnaldo Thomas MD Copies to: ~ Date of Service: 08/20/2023 Subjective Subjective Narrative: Patient reportedly did not sleep well overnight despite use of Precedex drip. Patient is awake and alert as well as following commands. Case was discussed with and brother outside of his room over the course of today. Exam Physical Exam Vital Signs: Temp Pulse Resp BP Pulse Ox O2 Del Method O2 Flow Rate 98.2 F 62 18 156/74 H 99 Mechanical Ventilation 10 08/20/23 05:00 08/20/23 07:02 08/20/23 07:02 08/20/23 07:02 08/20/23 07:02 08/20/23 07:02 08/18/23 16:23 FiO2 30 08/20/23 07:02 Const Nutritional Appearance: average body habitus and overweight Orientation: not alert and not awake HEENT Head: normal to inspection, normocephalic and atraumatic Ears: external ears normal Nose: external nose normal Face and sinus: normal facial exam Eyes Eyelids: eyelids normal Neck Neck: normal visual inspection, no lymphadenopathy and tracheostomy present (cuffed Size 8 Shiley tracheostomy) Chest Chest palpation & inspection: normal inspection of the chest Resp Auscultation: clear to auscultation bilaterally, no rales, no rhonchi and no wheezes Cardio Rate: regular rate Rhythm: regular rhythm Heart Sounds: S1 normal, S2 normal, no gallops, no murmurs and no rubs GI Inspection: normal to inspection Palpation: soft and nontender Auscultation: hypoactive bowel sounds Rectal Exam: deferred General: deferred Skin General: no rashes or lesions noted (warm and dry) Extrem General: no pedal edema and amputation noted Transmetatarsal: left Objective Intake and Output I&O - Last 24 Hours: Intake & Output 08/19/23 08/20/23 08/20/23 23:59 07:59 15:59 Intake Total 620 / 1260 320 / 320 Output Total 50 / 175 50 / 50 Balance 570 / 1085 270 / 270 Weight 186 lb 8.177 oz Labs 08/20/23 04:55 08/20/23 04:55 Assessment/Plan Assessment/Plan (1) Acute hypoxic respiratory failure: (2) Acute pulmonary edema: (3) ESRD (end stage renal disease): (4) T2DM (type 2 diabetes mellitus): (5) PAD (peripheral artery disease): Plan Hospital Day #19 for patient with acute on chronic respiratory failure on Micafungin and on daytime pressure support and nighttime volume control with nocturnal mechanical ventilatory support. Patient continues with thrombocytosisand mild leukocytosis which has been stable without fever. We await potential placement at long-term acute care facility. We will try 4-hour tracheostomy collar trial x 2 today. We continue to try and promote good sleep at night to decrease metabolic encephalopathy and ICU psychosis. Patient is tolerating tubefeeds. Basal insulin dosing was adjusted. I will stop the patient's scheduled Seroquel and see if this further improves his mental status. Continue supportive care. Case was discussed with the hospitalist service. Documented By: Mehul Garrett MD [id number] Signed By: <Electronically signed by MD Mehul Garrett> 08/20/23 1653 [facility] Work Phone: [phone]) 892-440803-27-2024 Progress note Author Arnaldo Thomas [facility] August 20, 2023 2:48pm Note Date/Time August 20, 2023 2:3 7pm [facility] [address] [place] [address] Hospitalist Progress Note Signed Patient: Sudeep Diego JR MR#: [id number] : 1950 Acct:[id number] Age/Sex: 72 / M Adm Date: 4 Loc: Room: [address] [place] [address] Type: ADM IN Attending Dr: Arnaldo Thomas MD Copies to: ~ Date of Service: 08/20/2023 Subjective Subjective Narrative: Patient examined at bedside with his present in the room. Scheduled for hemodialysis today. He has been getting intermittent trach collar with pressuresupport and mechanical ventilator at night. had question regarding weaninghim off mechanical ventilator and we discussed the process with plan to go to LTAC once approved by insurance. Exam Physical Exam Vital Signs: Temp Pulse Resp BP Pulse Ox O2 Del Method O2 Flow Rate 98.2 F 78 22 140/70 98 Mechanical Ventilation 10 08/20/23 05:00 08/20/23 14:02 08/20/23 13:00 08/20/23 14:02 08/20/23 13:00 08/20/23 13:00 08/18/23 16:23 FiO2 30 08/20/23 14:00 Const General: cooperative Orientation: alert and awake Other: Able to follow simple commands and does not appear to be in acute distress Resp Effort & Inspection: normal respiratory effort Auscultation: no rales, no rhonchi and no wheezes Neuro General: patient alert, patient awake, moves all extremities and no focal motor deficits Extrem General: no clubbing, cyanosis or edema and no calf tenderness Objective Lab Results 08/20/23 04:55 08/20/23 04:55 Meds Allergies and Active Meds Allergies cefepime Allergy (Unknown, Verified 07/10/23 18:46) Hives lisinopril Allergy (Unknown, Verified 07/10/23 18:46) Swelling of Lip/Tongue/Throat, SWELLING metformin Allergy (Unknown, Verified 07/10/23 18:46) Back Pain, KIDNEY PAIN Active Meds: Active Medications Generic Name Dose Route Start Last Admin Trade Name Freq PRN Reason Stop Dose Admin Acetaminophen 650 mg 08/13/23 14:00 08/19/23 21:33 Acetaminophen 650 Mg/20.3 Ml Oral.Susp NG-TUBE 08/12/24 13:59 650 mg Q6H PRN Administration Fever or Pain Albuterol 6 puff 08/01/23 12:00 08/20/23 13:19 Albuterol Hfa 200 Puff/18 Gm Inhaler VENT 07/31/24 11:59 6 puff Q6HR [facility] Administration Amlodipine Besylate 10 mg 08/17/23 09:00 08/20/23 08:19 Amlodipine 10 Mg Tablet OG-TUBE 08/16/24 08:59 10 mg DAILY [facility] Administration Aspirin 81 mg 08/17/23 16:00 08/20/23 08:19 Aspirin 81 Mg Tab.Chew NG-TUBE 08/16/24 15:59 81 mg DAILY [facility] Administration Clopidogrel Bisulfate 75 mg 08/17/23 16:00 08/20/23 08:19 Clopidogrel Bisulfate 75 Mg Tablet NG-TUBE 08/16/24 15:59 75 mg DAILY [facility] Administration Darbepoetin Abisai 60 mcg 08/13/23 09:05 08/20/23 13:47 Darbepoetin Abisai In Polysorbat 60 Mcg/Ml Vial IV-PUSH 08/12/24 09:04 60 mcg QWEEK [facility] Administration Protocol Dextrose 0 gm 08/01/23 08:05 08/19/23 05:25 Dextrose 50% In Water 25 Gm/50 Ml Syringe IV-PUSH 07/31/24 08:04 25 gm PRN PRN Administration Hypoglycemia Diclofenac Sodium 4 gm 08/17/23 18:00 08/20/23 08:20 Diclofenac Sodium 1% Gel 100 Gm Tube TOPICAL 08/16/24 17:59 4 gm QID [facility] Administration Fentanyl Citrate 50 mcg 08/13/23 14:00 08/18/23 15:14 Fentanyl/Pf 100 Mcg/2 Ml Vial IV-PUSH 50 mcg Q2H PRN Administration tracheostomy pain Ferric Sodium Gluconate Complex 62.5 mg 08/13/23 09:05 08/13/23 11:24 Sodium Ferric Gluconat/Sucrose 62.5 Mg/5 Ml Vial IV-PUSH 08/12/24 09:04 62.5 mg We@0900 [facility] Administration Gabapentin 100 mg 08/18/23 12:35 08/19/23 21:33 Gabapentin 300 Mg/6 Ml Udc NG-TUBE 08/16/24 20:59 100 mg QPM [facility] Administration Glucose 0 gm 08/01/23 08:05 Dextrose 40% Gel 15 Gm Tube PO 07/31/24 08:04 PRN PRN Hypoglycemia Heparin Sodium (Porcine) 5,000 unit 08/02/23 14:00 08/20/23 14:09 Heparin 5,000 Unit/Ml Vial SUBCUT 08/01/24 13:59 5,000 unit Q8HR [facility] Administration Heparin Sodium (Porcine) 4,100 unit 08/08/23 14:33 08/20/23 13:48 Heparin 10,000 Unit/10 Ml Vial IV 08/07/24 14:32 4,100 unit PRN PRN Administration Dialysis Heparin Sodium (Porcine) 2,500 unit 08/15/23 09:09 08/20/23 13:47 Heparin 10,000 Unit/10 Ml Vial IV 08/01/24 09:40 2,500 unit PRN PRN Administration Dialysis Heparin Sodium (Porcine) 1,500 unit 08/15/23 09:09 08/20/23 13:48 Heparin 10,000 Unit/10 Ml Vial IV 08/05/24 10:45 1,500 unit PRN PRN Administration Dialysis Hydralazine HCl 10 mg 08/08/23 12:08 08/15/23 04:42 Hydralazine 20 Mg/Ml Vial IV-PUSH 08/07/24 12:07 10 mg Q4H PRN Administration Hypertension Sodium Chloride 1,000 mls @ 0 mls/hr 08/01/23 10:32 08/20/23 13:50 0.9% Sodium Chloride 1,000 Ml MISCELLANE 07/31/24 10:31 Infused .Q0M PRN Infusion Dialysis As Directed Sodium Chloride 1,000 mls @ 0 mls/hr 08/02/23 09:41 08/15/23 11:39 0.9% Sodium Chloride 1,000 Ml MISCELLANE 08/01/24 09:40 Infused .Q0M PRN Infusion Dialysis As Directed Dexmedetomidine HCl 400 mcg/ 100 mls @ 4.84 mls/hr 08/05/23 10:15 08/20/23 05:50 Dextrose IV 08/04/24 10:14 0 mcg/kg/hr .[id number] [facility] 0 mls/hr Titration Protocol 0.2 MCG/KG/HR Micafungin Sodium 100 mg/ 105 mls @ 105 mls/hr 08/15/23 13:00 08/19/23 18:07 Sodium Chloride IV 08/21/23 16:59 105 mls/hr Q24H [facility] Administration Insulin Aspart 0 units 08/01/23 12:00 08/20/23 13:37 Insulin Aspart 300 Units/3 Ml Insuln.Pen SUBCUT 07/31/24 11:59 Not Given Q6HR [facility] Protocol Insulin Glargine 20 units 08/20/23 21:00 Insulin Glargine 300 Units/3 Ml Insuln.Pen SUBCUT 08/19/24 20:59 BID [facility] Lansoprazole 30 mg 08/17/23 09:00 08/20/23 08:20 Lansoprazole Solutab *Nf* 30 Mg Tab.Rap.Dr PEG 08/16/24 08:59 30 mg DAILY [facility] Administration Magnesium Hydroxide 30 ml 08/03/23 22:14 Magnesium Hydroxide Susp 30 Ml Udc PO 08/02/24 22:13 DAILY PRN Constipation Metoprolol Tartrate 5 mg 08/14/23 12:29 Metoprolol Tartrate 5 Mg/5 Ml Vial IV-PUSH 08/13/24 12:28 Q4H PRN Blood Pressure Metoprolol Tartrate 50 mg 08/16/23 21:00 08/20/23 08:19 Metoprolol Tartrate 50 Mg Tablet NG-TUBE 08/15/24 20:59 50 mg BID [facility] Administration Quetiapine Fumarate 50 mg 08/13/23 14:00 08/20/23 14:09 Quetiapine Fumarate 50 Mg Tablet PO 08/12/24 13:59 50 mg BID.9A.2P [facility] Administration Sodium Chloride 0 ml 08/01/23 10:32 08/20/23 13:48 Sodium Chloride 0.9 % 10 Ml Syringe IV-PUSH 07/31/24 10:31 40 ml PRN PRN Administration Flush Sodium Chloride 0 ml 08/02/23 09:41 08/15/23 11:38 Sodium Chloride 0.9 % 10 Ml Syringe IV-PUSH 08/01/24 09:40 40 ml PRN PRN Administration Flush A&P - Hospitalist Assessment/Plan (1) Acute hypoxic respiratory failure: (2) ESRD (end stage renal disease): (3) T2DM (type 2 diabetes mellitus): (4) Hyperlipemia: (5) HTN (hypertension): (6) PAD (peripheral artery disease): (7) Encephalopathy: (8) Anemia of renal disease: (9) Thrombocytosis: Plan Patient's mentation continues to improve as he has been more responsive. He is also able to cough up more expectorant. On micafungin for total of 7 days as recommended by ID. Ending intermediate trach collar with pressure support during day and mechanical ventilator at night. Precedex added to help regulate sleep cycle. Getting nutrition through NG tube. Renal failure being managed bynephrology. Continues to have thrombocytosis with WBC count trending down. Check iron profile and morning labs. Continue aspirin, Plavix, amlodipine, basal insulin with sliding scale coverage and metoprolol. On subcutaneous heparin for DVT prophylaxis. Documented By: Arnaldo Thomas MD 08/20/23 1435 Signed By: <Electronically signed by Arnaldo Thomas MD> 08/20/23 1443 [facility] Work Phone: [phone]) 729-429903-27-2024 Progress note Author Sury Winkler [facility] August 20, 2023 12:22pm Note Date/Time August 20, 2023 12: 22pm [facility] [address] [place] [address] Nephrology Progress Note Signed Patient: Sudeep Diego JR MR#: [id number] : 1950 Acct:[id number] Age/Sex: 72 / M Adm Date: 4 Loc: Room: [address] [place] [address] Type: ADM IN Attending Dr: Arnaldo Thomas MD Copies to: ~ Date of Service: 08/20/2023 Subjective Subjective Narrative: Mr. Diego is a 72-year-old male with history of DM2, HTN, PAD and prostate cancer. Patient was recently started on hemodialysis during his admission in June 2023 for SONYA possibly related to ATN versus Staph aureus glomerulonephritis. Patient had left diabetic wound s/p tarsometatarsal amputation. Creatinine has increased up to 5 mg/dL with no evidence of recovery. [facility]. Patient presented to [facility] from his nursing facility with severe shortness of breath requiring intubation. Chest x-ray showed bilateral pulmonary infiltrate with possible pulmonary edema. Subsequently the patient was transferred to [facility] and he continues to be on vent. Respiratory swab showed evidence of influenza A. Patient was treated for healthcare associated pneumonia with vancomycin and meropenem. Troponin was found to be elevated up to 1700. Hemoglobin was only 6.5 g/dL in setting of infection. Cardiology evaluated the patient and no intervention is planned at this point atthe patient most likely has type II demand decreased cardiac perfusion. Patientrequired prolonged hospitalization and eventually he underwent tracheostomy and is still on ventilator. Nephrology was consulted for ESRD and dialysis. Interim History: Patient up in the bed, awake, still on intermittent vent through tracheostomy that was placed on August 11 as he failed multiple attempts of extubation despiteaggressive ultrafiltration. He has no more edema. Patient still has oliguria despite creatinine in the range of 2.5 to 3 mg/dL. BUN still rising. He gets dialysis on MWF schedule. He continues to have mild leukocytosis currently on meropenem and micafungin forCandida glabrata that found in the urine. Exam Physical Exam Vital Signs: Temp Pulse Resp BP Pulse Ox O2 Del Method O2 Flow Rate 36.8 C 65 22 141/64 H 98 Trach Collar 10 08/20/23 05:00 08/20/23 11:00 08/20/23 11:00 08/20/23 11:00 08/20/23 11:00 08/20/23 11:00 08/18/23 16:23 FiO2 30 08/20/23 11:00 Narrative: Constitutional: Looks ill, awake and able to answer questions even though he is on ventilator with tracheostomy HEENT: Atraumatic, normal cephalic. Significant pallor with no jaundice or cyanosis. Patient has NG tube Neck: He has tracheostomy on vent. No JVD. Cardiovascular: RRR, normal S1-S2, no gallop or rub, No JVD Respiratory: Diminished breath sounds with scattered crackles in both lung ashraf. Gastrointestinal: Soft, non tender, positive bowel sounds. No palpable organs or masses. Extremities: Still has edema however it is improved with ultrafiltration Skin: No rashes or bruises Neurology: Awake, alert and oriented x 3. Able to answer questions and move allextremities. Vascular access: Right IJ tunneled hemodialysis catheter with clean exit site. Objective Intake and Output I&O: Intake & Output 08/17/23 08/18/23 08/19/23 08/20/23 23:59 23:59 23:59 23:59 Intake Total 421 / 421 1305 / 1305 1260 / 1260 320 / 320 Output Total 250 / 250 1672 / 1672 175 / 175 50 / 50 Balance 171 / 171 -367 / -367 1085 / 1085 270 / 270 Weight 86.6 kg 86.4 kg 84.3 kg 84.6 kg Meds and Allergies Meds: Active Medications Acetaminophen (Acetaminophen 650 Mg/20.3 Ml Oral.Susp) 650 mg NG-TUBE Q6H PRN PRN Reason: Fever or Pain Stop: 08/12/24 13:59 Last Admin: 08/19/23 21:33 Dose: 650 mg Albuterol (Albuterol Hfa 200 Puff/18 Gm Inhaler) 6 puff VENT Q6HR [facility] Stop: 07/31/24 11:59 Last Admin: 08/20/23 05:16 Dose: 6 puff Amlodipine Besylate (Amlodipine 10 Mg Tablet) 10 mg OG-TUBE DAILY [facility] Stop: 08/16/24 08:59 Last Admin: 08/20/23 08:19 Dose: 10 mg Aspirin (Aspirin 81 Mg Tab.Chew) 81 mg NG-TUBE DAILY [facility] Stop: 08/16/24 15:59 Last Admin: 08/20/23 08:19 Dose: 81 mg Clopidogrel Bisulfate (Clopidogrel Bisulfate 75 Mg Tablet) 75 mg NG-TUBE DAILY [facility] Stop: 08/16/24 15:59 Last Admin: 08/20/23 08:19 Dose: 75 mg Darbepoetin Abisai (Darbepoetin Abisai In Polysorbat 60 Mcg/Ml Vial) 60 mcg IV- [facility]; Protocol Stop: 08/12/24 09:04 Last Admin: 08/13/23 11:24 Dose: 60 mcg Dextrose (Dextrose 50% In Water 25 Gm/50 Ml Syringe) 0 gm IV-PUSH PRN PRN PRN Reason: Hypoglycemia Stop: 07/31/24 08:04 Last Admin: 08/19/23 05:25 Dose: 25 gm Diclofenac Sodium (Diclofenac Sodium 1% Gel 100 Gm Tube) 4 gm TOPICAL QID [facility] Stop: 08/16/24 17:59 Last Admin: 08/20/23 08:20 Dose: 4 gm Fentanyl Citrate (Fentanyl/Pf 100 Mcg/2 Ml Vial) 50 mcg IV-PUSH Q2H PRN PRN Reason: tracheostomy pain Last Admin: 08/18/23 15:14 Dose: 50 mcg Ferric Sodium Gluconate Complex (Sodium Ferric Gluconat/Sucrose 62.5 Mg/5 Ml Vial) 62.5 mg IV-PUSH We@0900 [facility] Stop: 08/12/24 09:04 Last Admin: 08/13/23 11:24 Dose: 62.5 mg Gabapentin (Gabapentin 300 Mg/6 Ml Udc) 100 mg NG-TUBE QPM [facility] Stop: 08/16/24 20:59 Last Admin: 08/19/23 21:33 Dose: 100 mg Glucose (Dextrose 40% Gel 15 Gm Tube) 0 gm PO PRN PRN PRN Reason: Hypoglycemia Stop: 07/31/24 08:04 Heparin Sodium (Porcine) (Heparin 5,000 Unit/Ml Vial) 5,000 unit SUBCUT Q8HR [facility] Stop: 08/01/24 13:59 Last Admin: 08/20/23 05:17 Dose: 5,000 unit Heparin Sodium (Porcine) (Heparin 10,000 Unit/10 Ml Vial) 4,100 unit IV PRN PRN PRN Reason: Dialysis Stop: 08/07/24 14:32 Last Admin: 08/18/23 09:35 Dose: 4,100 unit Heparin Sodium (Porcine) (Heparin 10,000 Unit/10 Ml Vial) 2,500 unit IV PRN PRN PRN Reason: Dialysis Stop: 08/01/24 09:40 Last Admin: 08/18/23 09:35 Dose: 2,500 unit Heparin Sodium (Porcine) (Heparin 10,000 Unit/10 Ml Vial) 1,500 unit IV PRN PRN PRN Reason: Dialysis Stop: 08/05/24 10:45 Last Admin: 08/18/23 09:35 Dose: 1,500 unit Hydralazine HCl (Hydralazine 20 Mg/Ml Vial) 10 mg IV-PUSH Q4H PRN PRN Reason: Hypertension Stop: 08/07/24 12:07 Last Admin: 08/15/23 04:42 Dose: 10 mg Sodium Chloride (0.9% Sodium Chloride 1,000 Ml) 1,000 mls @ 0 mls/hr MISCELLANE.Q0M PRN PRN Reason: Dialysis Stop: 07/31/24 10:31 Last Infusion: 08/18/23 09:36 Dose: Infused Sodium Chloride (0.9% Sodium Chloride 1,000 Ml) 1,000 mls @ 0 mls/hr MISCELLANE.Q0M PRN PRN Reason: Dialysis Stop: 08/01/24 09:40 Last Infusion: 08/15/23 11:39 Dose: Infused Dexmedetomidine HCl 400 mcg/ (Dextrose) 100 mls @ 4.84 mls/hr IV .[id number] [facility]; Protocol Stop: 08/04/24 10:14 Last Titration: 08/20/23 05:50 Dose: 0 mcg/kg/hr, 0 mls/hr Micafungin Sodium 100 mg/ (Sodium Chloride) 105 mls @ 105 mls/hr IV Q24H [facility] Stop: 08/21/23 16:59 Last Admin: 08/19/23 18:07 Dose: 105 mls/hr Insulin Aspart (Insulin Aspart 300 Units/3 Ml Insuln.Pen) 0 units SUBCUT Q6HR [facility]; Protocol Stop: 07/31/24 11:59 Last Admin: 08/20/23 05:17 Dose: 3 units Insulin Glargine (Insulin Glargine 300 Units/3 Ml Insuln.Pen) 20 units SUBCUT BID [facility] Stop: 08/19/24 20:59 Lansoprazole (Lansoprazole Solutab *Nf* 30 Mg Tab.Rap.Dr) 30 mg PEG DAILY [facility] Stop: 08/16/24 08:59 Last Admin: 08/20/23 08:20 Dose: 30 mg Magnesium Hydroxide (Magnesium Hydroxide Susp 30 Ml Udc) 30 ml PO DAILY PRN PRN Reason: Constipation Stop: 08/02/24 22:13 Metoprolol Tartrate (Metoprolol Tartrate 5 Mg/5 Ml Vial) 5 mg IV-PUSH Q4H PRN PRN Reason: Blood Pressure Stop: 08/13/24 12:28 Metoprolol Tartrate (Metoprolol Tartrate 50 Mg Tablet) 50 mg NG-TUBE BID [facility] Stop: 08/15/24 20:59 Last Admin: 08/20/23 08:19 Dose: 50 mg Quetiapine Fumarate (Quetiapine Fumarate 50 Mg Tablet) 50 mg PO BID.9A.2P [facility] Stop: 08/12/24 13:59 Last Admin: 08/20/23 08:19 Dose: 50 mg Sodium Chloride (Sodium Chloride 0.9 % 10 Ml Syringe) 0 ml IV-PUSH PRN PRN PRN Reason: Flush Stop: 07/31/24 10:31 Last Admin: 08/18/23 09:35 Dose: 40 ml Sodium Chloride (Sodium Chloride 0.9 % 10 Ml Syringe) 0 ml IV-PUSH PRN PRN PRN Reason: Flush Stop: 08/01/24 09:40 Last Admin: 08/15/23 11:38 Dose: 40 ml Allergies cefepime Allergy (Unknown, Verified 07/10/23 18:46) Hives lisinopril Allergy (Unknown, Verified 07/10/23 18:46) Swelling of Lip/Tongue/Throat, SWELLING metformin Allergy (Unknown, Verified 07/10/23 18:46) Back Pain, KIDNEY PAIN Results - Nephrology Labs 08/20/23 04:55 08/20/23 04:55 Labs: 08/20/23 04:55 BUN 69 H Creatinine 2.49 H Radiology Impressions Impressions - last 24 hours: Any impression(s) listed above is documentation that was entered by the reading physician into a diagnostic report(s) for Sudeep Diego JR. I have reviewed the report(s) and am incorporating any findings in the treatment plan of this patient where applicable. A&P - Nephrology Assessment/Plan (1) SONYA (acute kidney injury): Assessment/Problem Details: Patient developed SONYA during his previous admission on June 2023 with left foot infection and staph bacteremia with no evidence of recovery currently on dialysis. Baseline creatinine was 1.1 mg/dL. Patient gets dialysis on [facility] schedule (2) Acute pulmonary edema: Assessment/Problem Details: Patient presents with shortness of breath and respiratory failure. Chest x-ray showed pulmonary congestion with evidence of bilateral infiltrate. 2D echo showed dilated IVC with abnormal collapsibility suggestive of volume overload. Patient had total -5.5 L with ultrafiltration during hospitalization. (3) Acute hypoxic respiratory failure: Assessment/Problem Details: Patient has bilateral infiltrate on chest x-ray, respiratory swab was positive for influenza A. Patient is currently getting treatment for healthcare associated pneumonia as well since he has recent hospitalization (4) T2DM (type 2 diabetes mellitus): Assessment/Problem Details: He has insulin-dependent type 2 diabetes mellitus. He was taking insulin glargine at home. (5) Elevated troponin level not due to acute coronary syndrome: Assessment/Problem Details: He has a type II SD likely due to demand ischemia in setting of CHF and sepsis. (6) Anemia of renal disease: Assessment/Problem Details: He has anemia in the setting of SONYA with superimposed infection. Patient has elevated ferritin and low iron saturation in setting of infection. Plan * Although creatinine is low with no hyperkalemia, patient has Santana catheter with minimal urine output 100 to 170 cc every 24 hour. The urine is concentrated and dark. BUN and creatinine slowly rising between dialysis. Patient has SONYA and he was started on dialysis on June 2023, baseline creatinine 1.1 mg/dL. Patient will get hemodialysis today for 3 and half hour with minimal ultrafiltration 1 L as long as blood pressure stable and he has no respiratory compromise to give the chance for renal recovery. Patient was informed that renal function may or may not recover. He has tunneled hemodialysis catheter * He is currently on micafungin and meropenem. Sputum culture showed Rajiv albicans and urine culture showed Rajiv glabrata. Pharmacy to dose medication based on ESRD status. * ANCA, and anti-GBM antibodies are negative. SUSANA positive for SLATE SPLITTER antibodies with unclear significance. He may need kidney biopsy when the patient is more stable if renal function does not recover. * Continue current dose of the metoprolol this can be decreased if blood pressure drops. * Hemoglobin stabilized and currently more than 9 g/dL. * Vent management per Dr. Garrett. Patient has been increasingly tolerating collar trials 2 to 4 hours/day to improve respiratory muscles. * Monitor daily intake, output and renal panel to adjust medications and dialysis prescription as indicated. Documented By: Sury Winkler MD 08/20/23 1218 Signed By: <Electronically signed by MD Sury Winkler> 08/20/23 1221 [facility] Work Phone: 1(517) 847-897903-27-2024 Progress note Author Michael Ramírez [facility] August 20, 2023 10:19am Note Date/Time August 20, 2023 10: 19am [facility] [address] [place] [address] Infect. Disease Progress Note Signed Patient: Sudeep Diego JR MR#: [id number] : 1950 Acct:[id number] Age/Sex: 72 / M Adm Date: 4 Loc: Room: [address] [place] [address] Type: ADM IN Attending Dr: Arnaldo Thomas MD Copies to: ~ Date of Service: 08/20/2023 Subjective Interval history: Patient is having difficulty expressing some frustration when I was in the room. I could not understand him but he appears comfortable otherwise. Exam Physical Exam Vital Signs: Temp Pulse Resp BP Pulse Ox O2 Del Method O2 Flow Rate 98.2 F 62 18 156/74 H 99 Mechanical Ventilation 10 08/20/23 05:00 08/20/23 07:02 08/20/23 07:02 08/20/23 07:02 08/20/23 07:02 08/20/23 07:02 08/18/23 16:23 FiO2 30 08/20/23 07:02 Narrative: HD Cath R chest 08/01/23 Const General: cooperative, comfortable and no acute distress Orientation: alert, awake and oriented x3 HEENT Head: normal to inspection Nose: external nose normal (NGT) Face and sinus: normal facial exam Eyes General: appearance normal, both eyes and all related structures Neck Neck: not normal to visual inspection (trach) Chest Chest palpation & inspection: normal inspection of the chest Resp Effort & Inspection: normal respiratory effort Auscultation: diminished lung sounds Cardio Rate: regular rate and tachycardic Rhythm: regular rhythm GI Inspection: normal to inspection Auscultation: normal bowel sounds Skin General: other (TMA site with dressing) Neuro General: patient alert, patient awake and patient oriented x3 Extrem General: abnormal to inspection (see skin) Objective Labs CBC/BMP: CBC, BMP 08/20/23 04:55 Corrected WBC 12.5 H Uncorrected WBC Count 12.5 H RBC 3.16 L Hgb 9.4 L Hct 28.1 L Plt Count 781 H Sodium 130 L Potassium 3.7 Chloride 97 L Carbon Dioxide 28.0 Anion Gap 8.7 BUN 69 H Creatinine 2.49 H Calcium 8.6 Labs: 08/20/23 04:55 BUN 69 H Creatinine 2.49 H Microbiology Microbiology: Microbiology - Results from entire visit 08/11/23 09:26 Blood - Left Antecubital Blood Culture - Final NO GROWTH 5 DAYS 08/11/23 09:25 Blood - Left Hand Blood Culture - Final NO GROWTH 5 DAYS 08/13/23 14:18 Sputum - Endotrachael Aerobic Culture - Final Light Normal Respiratory Suyapa 2 Days 08/13/23 14:18 Sputum - Endotrachael Gram Stain - Final 08/12/23 09:50 Sputum - Endotrachael Aerobic Culture - Preliminary Rajiv albicans Fungal like structure 08/12/23 09:50 Sputum - Endotrachael Gram Stain - Final 08/11/23 19:05 Santana Port Urine Culture - Final Rajiv glabrata 08/12/23 09:56 Nasopharyngeal Respiratory Panel (PCR) - Final 08/01/23 07:33 Blood - Right Antecubital Blood Culture - Final NO GROWTH 5 DAYS 08/01/23 07:40 Blood - Left Hand Blood Culture - Final NO GROWTH 5 DAYS 08/02/23 03:30 Urine - Santana Catheter Urine Culture - Final No Growth 2 Days 08/01/23 09:00 Sputum - Endotrachael Aerobic Culture - Final Rajiv dubliniensis 08/01/23 09:00 Sputum - Endotrachael Gram Stain - Final 08/01/23 09:30 Nasopharyngeal Respiratory Panel (PCR) - Final Allergies and Medications Allergies and Active Meds Allergies cefepime Allergy (Unknown, Verified 07/10/23 18:46) Hives lisinopril Allergy (Unknown, Verified 07/10/23 18:46) Swelling of Lip/Tongue/Throat, SWELLING metformin Allergy (Unknown, Verified 07/10/23 18:46) Back Pain, KIDNEY PAIN Active Medications Acetaminophen (Acetaminophen 650 Mg/20.3 Ml Oral.Susp) 650 mg NG-TUBE Q6H PRN PRN Reason: Fever or Pain Stop: 08/12/24 13:59 Last Admin: 08/19/23 21:33 Dose: 650 mg Albuterol (Albuterol Hfa 200 Puff/18 Gm Inhaler) 6 puff VENT Q6HR [facility] Stop: 07/31/24 11:59 Last Admin: 08/20/23 05:16 Dose: 6 puff Amlodipine Besylate (Amlodipine 10 Mg Tablet) 10 mg OG-TUBE DAILY [facility] Stop: 08/16/24 08:59 Last Admin: 08/20/23 08:19 Dose: 10 mg Aspirin (Aspirin 81 Mg Tab.Chew) 81 mg NG-TUBE DAILY [facility] Stop: 08/16/24 15:59 Last Admin: 08/20/23 08:19 Dose: 81 mg Clopidogrel Bisulfate (Clopidogrel Bisulfate 75 Mg Tablet) 75 mg NG-TUBE DAILY [facility] Stop: 08/16/24 15:59 Last Admin: 08/20/23 08:19 Dose: 75 mg Darbepoetin Abisai (Darbepoetin Abisai In Polysorbat 60 Mcg/Ml Vial) 60 mcg IV- [facility]; Protocol Stop: 08/12/24 09:04 Last Admin: 08/13/23 11:24 Dose: 60 mcg Dextrose (Dextrose 50% In Water 25 Gm/50 Ml Syringe) 0 gm IV-PUSH PRN PRN PRN Reason: Hypoglycemia Stop: 07/31/24 08:04 Last Admin: 08/19/23 05:25 Dose: 25 gm Diclofenac Sodium (Diclofenac Sodium 1% Gel 100 Gm Tube) 4 gm TOPICAL QID [facility] Stop: 08/16/24 17:59 Last Admin: 08/20/23 08:20 Dose: 4 gm Fentanyl Citrate (Fentanyl/Pf 100 Mcg/2 Ml Vial) 50 mcg IV-PUSH Q2H PRN PRN Reason: tracheostomy pain Last Admin: 08/18/23 15:14 Dose: 50 mcg Ferric Sodium Gluconate Complex (Sodium Ferric Gluconat/Sucrose 62.5 Mg/5 Ml Vial) 62.5 mg IV-PUSH We@0900 [facility] Stop: 08/12/24 09:04 Last Admin: 08/13/23 11:24 Dose: 62.5 mg Gabapentin (Gabapentin 300 Mg/6 Ml Udc) 100 mg NG-TUBE QPM [facility] Stop: 08/16/24 20:59 Last Admin: 08/19/23 21:33 Dose: 100 mg Glucose (Dextrose 40% Gel 15 Gm Tube) 0 gm PO PRN PRN PRN Reason: Hypoglycemia Stop: 07/31/24 08:04 Heparin Sodium (Porcine) (Heparin 5,000 Unit/Ml Vial) 5,000 unit SUBCUT Q8HR [facility] Stop: 08/01/24 13:59 Last Admin: 08/20/23 05:17 Dose: 5,000 unit Heparin Sodium (Porcine) (Heparin 10,000 Unit/10 Ml Vial) 4,100 unit IV PRN PRN PRN Reason: Dialysis Stop: 08/07/24 14:32 Last Admin: 08/18/23 09:35 Dose: 4,100 unit Heparin Sodium (Porcine) (Heparin 10,000 Unit/10 Ml Vial) 2,500 unit IV PRN PRN PRN Reason: Dialysis Stop: 08/01/24 09:40 Last Admin: 08/18/23 09:35 Dose: 2,500 unit Heparin Sodium (Porcine) (Heparin 10,000 Unit/10 Ml Vial) 1,500 unit IV PRN PRN PRN Reason: Dialysis Stop: 08/05/24 10:45 Last Admin: 08/18/23 09:35 Dose: 1,500 unit Hydralazine HCl (Hydralazine 20 Mg/Ml Vial) 10 mg IV-PUSH Q4H PRN PRN Reason: Hypertension Stop: 08/07/24 12:07 Last Admin: 08/15/23 04:42 Dose: 10 mg Sodium Chloride (0.9% Sodium Chloride 1,000 Ml) 1,000 mls @ 0 mls/hr MISCELLANE.Q0M PRN PRN Reason: Dialysis Stop: 07/31/24 10:31 Last Infusion: 08/18/23 09:36 Dose: Infused Sodium Chloride (0.9% Sodium Chloride 1,000 Ml) 1,000 mls @ 0 mls/hr MISCELLANE.Q0M PRN PRN Reason: Dialysis Stop: 08/01/24 09:40 Last Infusion: 08/15/23 11:39 Dose: Infused Dexmedetomidine HCl 400 mcg/ (Dextrose) 100 mls @ 4.84 mls/hr IV .[id number] [facility]; Protocol Stop: 08/04/24 10:14 Last Titration: 08/20/23 05:50 Dose: 0 mcg/kg/hr, 0 mls/hr Micafungin Sodium 100 mg/ (Sodium Chloride) 105 mls @ 105 mls/hr IV Q24H [facility] Stop: 08/21/23 16:59 Last Admin: 08/19/23 18:07 Dose: 105 mls/hr Insulin Aspart (Insulin Aspart 300 Units/3 Ml Insuln.Pen) 0 units SUBCUT Q6HR [facility]; Protocol Stop: 07/31/24 11:59 Last Admin: 08/20/23 05:17 Dose: 3 units Insulin Glargine (Insulin Glargine 300 Units/3 Ml Insuln.Pen) 20 units SUBCUT BID [facility] Stop: 08/19/24 20:59 Lansoprazole (Lansoprazole Solutab *Nf* 30 Mg Tab.Rap) 30 mg PEG DAILY [facility] Stop: 08/16/24 08:59 Last Admin: 08/20/23 08:20 Dose: 30 mg Magnesium Hydroxide (Magnesium Hydroxide Susp 30 Ml Udc) 30 ml PO DAILY PRN PRN Reason: Constipation Stop: 08/02/24 22:13 Metoprolol Tartrate (Metoprolol Tartrate 5 Mg/5 Ml Vial) 5 mg IV-PUSH Q4H PRN PRN Reason: Blood Pressure Stop: 08/13/24 12:28 Metoprolol Tartrate (Metoprolol Tartrate 50 Mg Tablet) 50 mg NG-TUBE BID [facility] Stop: 08/15/24 20:59 Last Admin: 08/20/23 08:19 Dose: 50 mg Quetiapine Fumarate (Quetiapine Fumarate 50 Mg Tablet) 50 mg PO BID.9A.2P [facility] Stop: 08/12/24 13:59 Last Admin: 08/20/23 08:19 Dose: 50 mg Sodium Chloride (Sodium Chloride 0.9 % 10 Ml Syringe) 0 ml IV-PUSH PRN PRN PRN Reason: Flush Stop: 07/31/24 10:31 Last Admin: 08/18/23 09:35 Dose: 40 ml Sodium Chloride (Sodium Chloride 0.9 % 10 Ml Syringe) 0 ml IV-PUSH PRN PRN PRN Reason: Flush Stop: 08/01/24 09:40 Last Admin: 08/15/23 11:38 Dose: 40 ml A&P - Infectious Disease Assessment/Plan (1) Leukocytosis: (2) Respiratory failure: (3) Osteomyelitis of left foot: (4) Thrombocytosis: Plan His meropenem was discontinued Wednesday 08/16 as he had been on and off this medication 2 times during this hospital stay. He is continuing micafungin for now given the Rajiv glabrata from his urine but not too convinced his sputum warrants Rx. To finish 7 days. Stop date in chart. As for the fungal like structure I would anticipate given the lack of CT scan findings concerning for a fungal infection would think this is a colonizer as well. Patient's white count did improve and has been down over the last 2 days. He isat 12.5 today. Platelet count however still remains elevated. Documented By: Michael Ramírez MD 08/20/23 1014 Signed By: <Electronically signed by MD Michael Ramírez> 08/20/23 1019 [facility] Work Phone: 1(730) 253-522903-26-2024 Progress note Author Sury Winkler [facility] August 19, 2023 3:56pm Note Date/Time August 19, 2023 3:5 6pm [facility] [address] [place] [address] Nephrology Progress Note Signed Patient: Sudeep Diego JR MR#: [id number] : 1950 Acct:[id number] Age/Sex: 72 / M Adm Date: 4 Loc: Room: [address] [place] [address] Type: ADM IN Attending Dr: Arnaldo Thomas MD Copies to: ~ Date of Service: 08/19/2023 Subjective Subjective Narrative: Mr. Diego is a 72-year-old male with history of DM2, HTN, PAD and prostate cancer. Patient was recently started on hemodialysis during his admission in June 2023 for SONYA possibly related to ATN versus Staph aureus glomerulonephritis. Patient had left diabetic wound s/p tarsometatarsal amputation. Creatinine has increased up to 5 mg/dL with no evidence of recovery. Patient was [facility]. Patient presented to [facility] from his nursing facility with severe shortness of breath requiring intubation. Chest x-ray showed bilateral pulmonary infiltrate with possible pulmonary edema. Subsequently the patient was transferred to [facility] and he continues to be on vent. Respiratory swab showed evidence of influenza A. Patient was treated for healthcare associated pneumonia with vancomycin and meropenem. Troponin was found to be elevated up to 1700. Hemoglobin was only 6.5 g/dL in setting of infection. Cardiology evaluated the patient and no intervention is planned at this point atthe patient most likely has type II demand decreased cardiac perfusion. Patientrequired prolonged hospitalization and eventually he underwent tracheostomy and is still on ventilator. Nephrology was consulted for ESRD and dialysis. Interim History: Patient is up in the bed, awake with tracheostomy and vent that was done on August 11/2024 as he failed multiple attempts for extubation despite aggressive ultrafiltration. He is currently on tube feeding. Patient is more awake right now and he is undergoing trial of CPAP. He has adequate oxygenation. He has minimal edema. He continues to have mild leukocytosis currently on meropenem and micafungin for Rajiv glabrata that found in the urine. Patient had hemodialysis yesterday with 1 L ultrafiltration hoping that renal function would improve since creatinine started to stabilize around 3 mg/dL and urine output started to increase slowly. Started dialysis in June for SONYA in the setting of pneumonia with previous serum creatinine 1.1 mg/dL. Exam Physical Exam Vital Signs: Temp Pulse Resp BP Pulse Ox O2 Del Method O2 Flow Rate 36.9 C 64 21 148/68 H 98 Mechanical Ventilation 10 08/19/23 12:00 08/19/23 13:08/19/23 13:00 08/19/23 13:00 08/19/23 13:00 08/19/23 13:00 08/18/23 16:23 FiO2 30 08/19/23 15:00 Narrative: Constitutional: Looks ill, awake and able to answer questions even though he is on ventilator with tracheostomy HEENT: Atraumatic, normal cephalic. Significant pallor with no jaundice or cyanosis. Patient has NG tube Neck: He has tracheostomy on vent. No JVD. Cardiovascular: RRR, normal S1-S2, no gallop or rub, No JVD Respiratory: Diminished breath sounds with scattered crackles in both lung ashraf. Gastrointestinal: Soft, non tender, positive bowel sounds. No palpable organs or masses. Extremities: Still has edema however it is improved with ultrafiltration Skin: No rashes or bruises Neurology: Awake, alert and oriented x 3. Able to answer questions and move allextremities. Vascular access: Right IJ tunneled hemodialysis catheter with clean exit site. Objective Intake and Output I&O: Intake & Output 08/16/23 08/17/23 08/18/23 08/19/23 23:59 23:59 23:59 23:59 Intake Total 1759 / 1759 421 / 421 1305 / 1305 640 / 640 Output Total 110 / 110 250 / 250 1672 / 1672 125 / 125 Balance 1649 / 1649 171 / 171 -367 / -367 515 / 515 Weight 85.8 kg 86.6 kg 86.4 kg 84.3 kg Meds and Allergies Meds: Active Medications Acetaminophen (Acetaminophen 650 Mg/20.3 Ml Oral.Susp) 650 mg NG-TUBE Q6H PRN PRN Reason: Fever or Pain Stop: 08/12/24 13:59 Last Admin: 08/19/23 10:29 Dose: 650 mg Albuterol (Albuterol Hfa 200 Puff/18 Gm Inhaler) 6 puff VENT Q6HR [facility] Stop: 07/31/24 11:59 Last Admin: 08/19/23 12:12 Dose: 6 puff Amlodipine Besylate (Amlodipine 10 Mg Tablet) 10 mg OG-TUBE DAILY [facility] Stop: 08/16/24 08:59 Last Admin: 08/19/23 08:36 Dose: 10 mg Aspirin (Aspirin 81 Mg Tab.Chew) 81 mg NG-TUBE DAILY [facility] Stop: 08/16/24 15:59 Last Admin: 08/19/23 08:36 Dose: 81 mg Clopidogrel Bisulfate (Clopidogrel Bisulfate 75 Mg Tablet) 75 mg NG-TUBE DAILY [facility] Stop: 08/16/24 15:59 Last Admin: 08/19/23 08:36 Dose: 75 mg Darbepoetin Abisai (Darbepoetin Abisai In Polysorbat 60 Mcg/Ml Vial) 60 mcg IV- PUSHQWEEK [facility]; Protocol Stop: 08/12/24 09:04 Last Admin: 08/13/23 11:24 Dose: 60 mcg Dextrose (Dextrose 50% In Water 25 Gm/50 Ml Syringe) 0 gm IV-PUSH PRN PRN PRN Reason: Hypoglycemia Stop: 07/31/24 08:04 Last Admin: 08/19/23 05:25 Dose: 25 gm Diclofenac Sodium (Diclofenac Sodium 1% Gel 100 Gm Tube) 4 gm TOPICAL QID [facility] Stop: 08/16/24 17:59 Last Admin: 08/19/23 14:39 Dose: 4 gm Fentanyl Citrate (Fentanyl/Pf 100 Mcg/2 Ml Vial) 50 mcg IV-PUSH Q2H PRN PRN Reason: tracheostomy pain Last Admin: 08/18/23 15:14 Dose: 50 mcg Ferric Sodium Gluconate Complex (Sodium Ferric Gluconat/Sucrose 62.5 Mg/5 Ml Vial) 62.5 mg IV-PUSH We@0900 [facility] Stop: 08/12/24 09:04 Last Admin: 08/13/23 11:24 Dose: 62.5 mg Gabapentin (Gabapentin 300 Mg/6 Ml Udc) 100 mg NG-TUBE QPM [facility] Stop: 08/16/24 20:59 Last Admin: 08/18/23 20:28 Dose: 100 mg Glucose (Dextrose 40% Gel 15 Gm Tube) 0 gm PO PRN PRN PRN Reason: Hypoglycemia Stop: 07/31/24 08:04 Heparin Sodium (Porcine) (Heparin 5,000 Unit/Ml Vial) 5,000 unit SUBCUT Q8HR [facility] Stop: 08/01/24 13:59 Last Admin: 08/19/23 14:39 Dose: 5,000 unit Heparin Sodium (Porcine) (Heparin 10,000 Unit/10 Ml Vial) 4,100 unit IV PRN PRN PRN Reason: Dialysis Stop: 08/07/24 14:32 Last Admin: 08/18/23 09:35 Dose: 4,100 unit Heparin Sodium (Porcine) (Heparin 10,000 Unit/10 Ml Vial) 2,500 unit IV PRN PRN PRN Reason: Dialysis Stop: 08/01/24 09:40 Last Admin: 08/18/23 09:35 Dose: 2,500 unit Heparin Sodium (Porcine) (Heparin 10,000 Unit/10 Ml Vial) 1,500 unit IV PRN PRN PRN Reason: Dialysis Stop: 08/05/24 10:45 Last Admin: 08/18/23 09:35 Dose: 1,500 unit Hydralazine HCl (Hydralazine 20 Mg/Ml Vial) 10 mg IV-PUSH Q4H PRN PRN Reason: Hypertension Stop: 08/07/24 12:07 Last Admin: 08/15/23 04:42 Dose: 10 mg Sodium Chloride (0.9% Sodium Chloride 1,000 Ml) 1,000 mls @ 0 mls/hr MISCELLANE.Q0M PRN PRN Reason: Dialysis Stop: 07/31/24 10:31 Last Infusion: 08/18/23 09:36 Dose: Infused Sodium Chloride (0.9% Sodium Chloride 1,000 Ml) 1,000 mls @ 0 mls/hr MISCELLANE.Q0M PRN PRN Reason: Dialysis Stop: 08/01/24 09:40 Last Infusion: 08/15/23 11:39 Dose: Infused Dexmedetomidine HCl 400 mcg/ (Dextrose) 100 mls @ 4.84 mls/hr IV .[id number] [facility]; Protocol Stop: 08/04/24 10:14 Last Admin: 08/19/23 14:38 Dose: Not Given Micafungin Sodium 100 mg/ (Sodium Chloride) 105 mls @ 105 mls/hr IV Q24H [facility] Stop: 08/21/23 16:59 Last Infusion: 08/18/23 19:00 Dose: Infused Insulin Aspart (Insulin Aspart 300 Units/3 Ml Insuln.Pen) 0 units SUBCUT Q6HR [facility]; Protocol Stop: 07/31/24 11:59 Last Admin: 08/19/23 12:59 Dose: Not Given Insulin Glargine (Insulin Glargine 300 Units/3 Ml Insuln.Pen) 30 units SUBCUT BID [facility] Stop: 08/16/24 20:59 Last Admin: 08/19/23 08:37 Dose: 30 units Lansoprazole (Lansoprazole Solutab *Nf* 30 Mg Tab.Rap.Dr) 30 mg PEG DAILY [facility] Stop: 08/16/24 08:59 Last Admin: 08/19/23 08:37 Dose: 30 mg Magnesium Hydroxide (Magnesium Hydroxide Susp 30 Ml Udc) 30 ml PO DAILY PRN PRN Reason: Constipation Stop: 08/02/24 22:13 Metoprolol Tartrate (Metoprolol Tartrate 5 Mg/5 Ml Vial) 5 mg IV-PUSH Q4H PRN PRN Reason: Blood Pressure Stop: 08/13/24 12:28 Metoprolol Tartrate (Metoprolol Tartrate 50 Mg Tablet) 50 mg NG-TUBE BID [facility] Stop: 08/15/24 20:59 Last Admin: 08/19/23 08:36 Dose: 50 mg Quetiapine Fumarate (Quetiapine Fumarate 50 Mg Tablet) 50 mg PO BID.9A.2P [facility] Stop: 08/12/24 13:59 Last Admin: 08/19/23 14:38 Dose: 50 mg Sodium Chloride (Sodium Chloride 0.9 % 10 Ml Syringe) 0 ml IV-PUSH PRN PRN PRN Reason: Flush Stop: 07/31/24 10:31 Last Admin: 08/18/23 09:35 Dose: 40 ml Sodium Chloride (Sodium Chloride 0.9 % 10 Ml Syringe) 0 ml IV-PUSH PRN PRN PRN Reason: Flush Stop: 08/01/24 09:40 Last Admin: 08/15/23 11:38 Dose: 40 ml Allergies cefepime Allergy (Unknown, Verified 07/10/23 18:46) Hives lisinopril Allergy (Unknown, Verified 07/10/23 18:46) Swelling of Lip/Tongue/Throat, SWELLING metformin Allergy (Unknown, Verified 07/10/23 18:46) Back Pain, KIDNEY PAIN Results - Nephrology Labs 08/19/23 04:06 08/19/23 04:06 Labs: 08/19/23 04:06 BUN 48 H D Creatinine 2.23 H D Radiology Impressions Impressions - last 24 hours: Impressions Abdomen X-Ray 08/18/23 16:51 IMPRESSION: DISTAL ASPECT OF THE ENTERIC TUBE TIP IN THE STOMACH. Impression dictated by: Georgi Simmons Jr., D.OTracy08/18/2023 6:28 PM Dictation Location: [place] [address] Any impression(s) listed above is documentation that was entered by the reading physician into a diagnostic report(s) for Sudeep Diego JR. I have reviewed the report(s) and am incorporating any findings in the treatment plan of this patient where applicable. A&P - Nephrology Assessment/Plan (1) SONYA (acute kidney injury): Assessment/Problem Details: Patient developed SONYA during his previous admission on June 2023 with left foot infection and staph bacteremia with no evidence of recovery currently on dialysis. Baseline creatinine was 1.1 mg/dL. Patient gets dialysis on MWF schedule (2) Acute pulmonary edema: Assessment/Problem Details: Patient presents with shortness of breath and respiratory failure. Chest x-ray showed pulmonary congestion with evidence of bilateral infiltrate. 2D echo showed dilated IVC with abnormal collapsibility suggestive of volume overload. Patient had total -5.5 L with ultrafiltration during hospitalization. (3) Acute hypoxic respiratory failure: Assessment/Problem Details: Patient has bilateral infiltrate on chest x-ray, respiratory swab was positive for influenza A. Patient is currently getting treatment for healthcare associated pneumonia as well since he has recent hospitalization (4) T2DM (type 2 diabetes mellitus): Assessment/Problem Details: He has insulin-dependent type 2 diabetes mellitus. He was taking insulin glargine at home. (5) Elevated troponin level not due to acute coronary syndrome: Assessment/Problem Details: He has a type II SD likely due to demand ischemia in setting of CHF and sepsis. (6) Anemia of renal disease: Assessment/Problem Details: He has anemia in the setting of SONYA with superimposed infection. Patient has elevated ferritin and low iron saturation in setting of infection. Plan * Patient had hemodialysis today for 210 minutes, 1 L ultrafiltration. Blood pressure did improve currently in the 140s range. Urine output started to leaf size picker slowly over the last few days however still below 500 mL daily. * He is currently on micafungin and meropenem. Sputum culture showed Rajiv albicans and urine culture showed Rajiv glabrata. Pharmacy to dose medication based on ESRD status. * ANCA, and anti-GBM antibodies are negative. SUSANA positive for SLATE SPLITTER antibodies with unclear significance. He may need kidney biopsy when the patient is more stable if renal function does not recover. * Continue current dose of the metoprolol and metoprolol will monitor blood pressure to adjust dosage as indicated * Monitor H&H and transfuse as needed to keep the hemoglobin greater than 7.5 g/dL. * Vent management per Dr. Garrett. Patient will have 1 to 2-hour collar trials daily to improve respiratory muscles functionality. * Monitor daily intake, output and renal panel to adjust medications and dialysis prescription as indicated. Documented By: Sury Winkler MD 08/19/23 1549 Signed By: <Electronically signed by MD Sury Winkler> 08/19/23 1556 [facility] Work Phone: 1(603) 951-114703-26-2024 Progress note Author Mehul Garrett [facility] August 19, 2023 12:58pm Note Date/Time August 19, 2023 8:0 1am [facility] [address] [place] [address] Pulmonology Progress Note Signed Patient: Sudeep Diego JR MR#: [id number] : 1950 Acct:[id number] Age/Sex: 72 / M Adm Date: 4 Loc: Room: [address] [place] [address] Type: ADM IN Attending Dr: Arnaldo Thomas MD Copies to: ~ Date of Service: 08/19/2023 Subjective Subjective Narrative: Patient reportedly slept well on Precedex drip last night per nursing staff. Heis awake and does follow commands to squeeze hands and nods yes/no appropriatelyto questioning. He denies pain. Exam Physical Exam Vital Signs: Temp Pulse Resp BP Pulse Ox O2 Del Method O2 Flow Rate 98.6 F 59 L 18 133/62 98 Mechanical Ventilation 10 08/18/23 20:00 08/19/23 07:00 08/19/23 07:00 08/19/23 07:00 08/19/23 07:00 08/19/23 07:00 08/18/23 16:23 FiO2 30 08/19/23 07:00 Const Nutritional Appearance: average body habitus and overweight Orientation: not alert and not awake HEENT Head: normal to inspection, normocephalic and atraumatic Ears: external ears normal Nose: external nose normal Face and sinus: normal facial exam Eyes Eyelids: eyelids normal Neck Neck: normal visual inspection, no lymphadenopathy and tracheostomy present (cuffed Size 8 Shiley tracheostomy) Chest Chest palpation & inspection: normal inspection of the chest Resp Auscultation: clear to auscultation bilaterally, no rales, no rhonchi and no wheezes Cardio Rate: regular rate Rhythm: regular rhythm Heart Sounds: S1 normal, S2 normal, no gallops, no murmurs and no rubs GI Inspection: normal to inspection Palpation: soft and nontender Auscultation: hypoactive bowel sounds Rectal Exam: deferred General: deferred Skin General: no rashes or lesions noted (warm and dry) Extrem General: no pedal edema and amputation noted Transmetatarsal: left Objective Intake and Output I&O - Last 24 Hours: Intake & Output 08/18/23 08/19/23 08/19/23 23:59 07:59 15:59 Intake Total 675 / 1305 320 / 320 Output Total 100 / 1672 Balance 575 / -367 295 / 295 Weight 185 lb 13.595 oz Labs 08/19/23 04:06 08/19/23 04:06 Assessment/Plan Assessment/Plan (1) Acute hypoxic respiratory failure: (2) Acute pulmonary edema: (3) ESRD (end stage renal disease): (4) T2DM (type 2 diabetes mellitus): (5) PAD (peripheral artery disease): Plan Hospital Day #18 for patient with acute on chronic respiratory failure on Micafungin and on daytime pressure support and nighttime volume control with nocturnal mechanical ventilatory support. His thrombocytosis has decreased slightly though this may be normal variation. He did well with 1 hour trach collar trials x 2. We will try 2-hour trach collar trials x 2 today. We will continue supportive care including nutritional support and will try and maintainwakefulness during the day and promote sleep with Precedex at night to decrease ICU psychosis and to minimize sedation overall to decrease the patient's encephalopathy. Continue supportive care as we await placement potentially at long-term acute care facility. Case was discussed with hospitalist service. Documented By: Mehul Garrett MD 4 0801 Signed By: <Electronically signed by MD Mehul Garrett> 08/19/23 7956 [facility] Work Phone: 1(627) 346-791603-26-2024 Progress note Author Arnaldo Thomas [facility] August 19, 2023 12:57pm Note Date/Time August 19, 2023 12: 57pm [facility] [address] [place] [address] Hospitalist Progress Note Signed Patient: Sudeep Diego JR MR#: [id number] : 1950 Acct:[id number] Age/Sex: 72 / M Adm Date: 4 Loc: Room: [address] [place] [address] Type: ADM IN Attending Dr: Arnaldo Thomas MD Copies to: ~ Date of Service: 08/19/2023 Subjective Subjective Narrative: Examination patient placed on T collar with no overnight event. His brother andfather present in the room and has noticed significant improvement in his mentation. Currently on intermittent T collar with pressure support and mechanical ventilator at night. Exam Physical Exam Vital Signs: Temp Pulse Resp BP Pulse Ox O2 Del Method O2 Flow Rate 98.4 F 67 16 140/67 100 Mechanical Ventilation 10 08/19/23 12:00 08/19/23 12:00 08/19/23 12:00 08/19/23 12:00 08/19/23 12:00 08/19/23 12:00 08/18/23 16:23 FiO2 30 08/19/23 12:00 Const General: cooperative Orientation: alert Other: Able to follow simple commands and does not appear to be in acute distress Resp Effort & Inspection: normal respiratory effort Auscultation: no rales, no rhonchi and no wheezes Neuro General: patient alert, moves all extremities and no focal motor deficits Objective Lab Results 08/19/23 04:06 08/19/23 04:06 ABG Interpretation ABG results: 08/19/23 04:19 ABG pH 7.54 H ABG pCO2 31.8 L ABG pO2 105.4 H ABG HCO3 26.8 ABG Total CO2 27.8 H ABG O2 Saturation 97.9 ABG O2 Content 6.1 L ABG Base Excess 4.5 H Meds Allergies and Active Meds Allergies cefepime Allergy (Unknown, Verified 07/10/23 18:46) Hives lisinopril Allergy (Unknown, Verified 07/10/23 18:46) Swelling of Lip/Tongue/Throat, SWELLING metformin Allergy (Unknown, Verified 07/10/23 18:46) Back Pain, KIDNEY PAIN Active Meds: Active Medications Generic Name Dose Route Start Last Admin Trade Name Freq PRN Reason Stop Dose Admin Acetaminophen 650 mg 08/13/23 14:00 08/19/23 10:29 Acetaminophen 650 Mg/20.3 Ml Oral.Susp NG-TUBE 08/12/24 13:59 650 mg Q6H PRN Administration Fever or Pain Albuterol 6 puff 08/01/23 12:00 08/19/23 12:12 Albuterol Hfa 200 Puff/18 Gm Inhaler VENT 07/31/24 11:59 6 puff Q6HR [facility] Administration Amlodipine Besylate 10 mg 08/17/23 09:00 08/19/23 08:36 Amlodipine 10 Mg Tablet OG-TUBE 08/16/24 08:59 10 mg DAILY [facility] Administration Aspirin 81 mg 08/17/23 16:00 08/19/23 08:36 Aspirin 81 Mg Tab.Chew NG-TUBE 08/16/24 15:59 81 mg DAILY [facility] Administration Clopidogrel Bisulfate 75 mg 08/17/23 16:00 08/19/23 08:36 Clopidogrel Bisulfate 75 Mg Tablet NG-TUBE 08/16/24 15:59 75 mg DAILY [facility] Administration Darbepoetin Abisai 60 mcg 08/13/23 09:05 08/13/23 11:24 Darbepoetin Abisai In Polysorbat 60 Mcg/Ml Vial IV-PUSH 08/12/24 09:04 60 mcg QWEEK [facility] Administration Protocol Dextrose 0 gm 08/01/23 08:05 08/19/23 05:25 Dextrose 50% In Water 25 Gm/50 Ml Syringe IV-PUSH 07/31/24 08:04 25 gm PRN PRN Administration Hypoglycemia Diclofenac Sodium 4 gm 08/17/23 18:00 08/19/23 08:37 Diclofenac Sodium 1% Gel 100 Gm Tube TOPICAL 08/16/24 17:59 4 gm QID [facility] Administration Fentanyl Citrate 50 mcg 08/13/23 14:00 08/18/23 15:14 Fentanyl/Pf 100 Mcg/2 Ml Vial IV-PUSH 50 mcg Q2H PRN Administration tracheostomy pain Ferric Sodium Gluconate Complex 62.5 mg 08/13/23 09:05 08/13/23 11:24 Sodium Ferric Gluconat/Sucrose 62.5 Mg/5 Ml Vial IV-PUSH 08/12/24 09:04 62.5 mg We@0900 [facility] Administration Gabapentin 100 mg 08/18/23 12:35 08/18/23 20:28 Gabapentin 300 Mg/6 Ml Udc NG-TUBE 08/16/24 20:59 100 mg QPM [facility] Administration Glucose 0 gm 08/01/23 08:05 Dextrose 40% Gel 15 Gm Tube PO 07/31/24 08:04 PRN PRN Hypoglycemia Heparin Sodium (Porcine) 5,000 unit 08/02/23 14:00 08/19/23 05:24 Heparin 5,000 Unit/Ml Vial SUBCUT 08/01/24 13:59 5,000 unit Q8HR [facility] Administration Heparin Sodium (Porcine) 4,100 unit 08/08/23 14:33 08/18/23 09:35 Heparin 10,000 Unit/10 Ml Vial IV 08/07/24 14:32 4,100 unit PRN PRN Administration Dialysis Heparin Sodium (Porcine) 2,500 unit 08/15/23 09:09 08/18/23 09:35 Heparin 10,000 Unit/10 Ml Vial IV 08/01/24 09:40 2,500 unit PRN PRN Administration Dialysis Heparin Sodium (Porcine) 1,500 unit 08/15/23 09:09 08/18/23 09:35 Heparin 10,000 Unit/10 Ml Vial IV 08/05/24 10:45 1,500 unit PRN PRN Administration Dialysis Hydralazine HCl 10 mg 08/08/23 12:08 08/15/23 04:42 Hydralazine 20 Mg/Ml Vial IV-PUSH 08/07/24 12:07 10 mg Q4H PRN Administration Hypertension Sodium Chloride 1,000 mls @ 0 mls/hr 08/01/23 10:32 08/18/23 09:36 0.9% Sodium Chloride 1,000 Ml MISCELLANE 07/31/24 10:31 Infused .Q0M PRN Infusion Dialysis As Directed Sodium Chloride 1,000 mls @ 0 mls/hr 08/02/23 09:41 08/15/23 11:39 0.9% Sodium Chloride 1,000 Ml MISCELLANE 08/01/24 09:40 Infused .Q0M PRN Infusion Dialysis As Directed Dexmedetomidine HCl 400 mcg/ 100 mls @ 4.84 mls/hr 08/05/23 10:15 08/19/23 06:10 Dextrose IV 08/04/24 10:14 0 mcg/kg/hr .[id number] [facility] 0 mls/hr Titration Protocol 0.2 MCG/KG/HR Micafungin Sodium 100 mg/ 105 mls @ 105 mls/hr 08/15/23 13:00 08/18/23 19:00 Sodium Chloride IV 08/21/23 16:59 Infused Q24H [facility] Infusion Insulin Aspart 0 units 08/01/23 12:00 08/19/23 05:24 Insulin Aspart 300 Units/3 Ml Insuln.Pen SUBCUT 07/31/24 11:59 Not Given Q6HR [facility] Protocol Insulin Glargine 30 units 08/17/23 21:00 08/19/23 08:37 Insulin Glargine 300 Units/3 Ml Insuln.Pen SUBCUT 08/16/24 20:59 30 units BID [facility] Administration Lansoprazole 30 mg 08/17/23 09:00 08/19/23 08:37 Lansoprazole Solutab *Nf* 30 Mg Tab.Rap.Dr OBRIEN 08/16/24 08:59 30 mg DAILY [facility] Administration Magnesium Hydroxide 30 ml 08/03/23 22:14 Magnesium Hydroxide Susp 30 Ml Udc PO 08/02/24 22:13 DAILY PRN Constipation Metoprolol Tartrate 5 mg 08/14/23 12:29 Metoprolol Tartrate 5 Mg/5 Ml Vial IV-PUSH 08/13/24 12:28 Q4H PRN Blood Pressure Metoprolol Tartrate 50 mg 08/16/23 21:00 08/19/23 08:36 Metoprolol Tartrate 50 Mg Tablet NG-TUBE 08/15/24 20:59 50 mg BID [facility] Administration Quetiapine Fumarate 50 mg 08/13/23 14:00 08/19/23 08:36 Quetiapine Fumarate 50 Mg Tablet PO 08/12/24 13:59 50 mg BID.9A.2P [facility] Administration Sodium Chloride 0 ml 08/01/23 10:32 08/18/23 09:35 Sodium Chloride 0.9 % 10 Ml Syringe IV-PUSH 07/31/24 10:31 40 ml PRN PRN Administration Flush Sodium Chloride 0 ml 08/02/23 09:41 08/15/23 11:38 Sodium Chloride 0.9 % 10 Ml Syringe IV-PUSH 08/01/24 09:40 40 ml PRN PRN Administration Flush A&P - Hospitalist Assessment/Plan (1) Acute hypoxic respiratory failure: (2) ESRD (end stage renal disease): (3) T2DM (type 2 diabetes mellitus): (4) Hyperlipemia: (5) HTN (hypertension): (6) PAD (peripheral artery disease): (7) Encephalopathy: (8) Anemia of renal disease: (9) Thrombocytosis: Plan Patient has getting intermittent T collar with pressures up has been tolerating well so far. On nocturnal ventilator support with addition of Precedex to help regulate sleep cycle. Nutrition through NG tube. On micafungin with plan to treat with 7 days as per ID. Renal failure being managed by nephrology. WBC count trending down. Continue basal insulin with sliding scale coverage. Bloodglucose has been well-controlled. On subcutaneous heparin for DVT prophylaxis. Plan to discharge to LTAC once arranged. Documented By: Arnaldo Thomas MD 08/19/23 1249 Signed By: <Electronically signed by Arnaldo Thomas MD> 08/19/23 1257 [facility] Work Phone: [phone]) 942-936203-26-2024 Progress note Author Michael Ramírez [facility] August 19, 2023 9:23am Note Date/Time August 19, 2023 9:2 3am [facility] [address] [place] [address] Infect. Disease Progress Note Signed Patient: Sudeep Diego JR MR#: [id number] : 1950 Acct:[id number] Age/Sex: 72 / M Adm Date: 4 Loc: Room: [address] [place] [address] Type: ADM IN Attending Dr: Arnaldo Thomas MD Copies to: ~ Date of Service: 08/19/2023 Subjective Interval history: Patient is easily awakened but then falls back asleep while talking to him. Appears comfortable. Denies any physical complaints Exam Physical Exam Vital Signs: Temp Pulse Resp BP Pulse Ox O2 Del Method O2 Flow Rate 98.6 F 59 L 18 133/62 98 Mechanical Ventilation 10 08/18/23 20:00 08/19/23 07:00 08/19/23 07:00 08/19/23 07:00 08/19/23 07:00 08/19/23 07:00 08/18/23 16:23 FiO2 30 08/19/23 07:00 Narrative: HD Cath R chest 08/01/23 Const General: cooperative, comfortable and no acute distress Orientation: alert and awake HEENT Head: normal to inspection Nose: external nose normal (NGT) Face and sinus: normal facial exam Eyes General: appearance normal, both eyes and all related structures Neck Neck: not normal to visual inspection (trach) Chest Chest palpation & inspection: normal inspection of the chest Resp Effort & Inspection: normal respiratory effort Auscultation: diminished lung sounds Cardio Rate: regular rate Rhythm: regular rhythm GI Inspection: normal to inspection Auscultation: normal bowel sounds Skin General: other (TMA site with dressing) Neuro General: patient alert and patient awake Extrem General: abnormal to inspection Objective Labs CBC/BMP: CBC, BMP 08/19/23 04:06 Corrected WBC 12.1 H Uncorrected WBC Count 12.1 H RBC 3.07 L Hgb 9.3 L Hct 27.2 L Plt Count 737 H Sodium 133 L Potassium 3.6 Chloride 99 Carbon Dioxide 29.6 Anion Gap 8.0 BUN 48 H D Creatinine 2.23 H D Calcium 8.3 L Labs: 08/19/23 04:06 BUN 48 H D Creatinine 2.23 H D Microbiology Microbiology: Microbiology - Results from entire visit 08/11/23 09:26 Blood - Left Antecubital Blood Culture - Final NO GROWTH 5 DAYS 08/11/23 09:25 Blood - Left Hand Blood Culture - Final NO GROWTH 5 DAYS 08/13/23 14:18 Sputum - Endotrachael Aerobic Culture - Final Light Normal Respiratory Suyapa 2 Days 08/13/23 14:18 Sputum - Endotrachael Gram Stain - Final 08/12/23 09:50 Sputum - Endotrachael Aerobic Culture - Preliminary Rajiv albicans Fungal like structure 08/12/23 09:50 Sputum - Endotrachael Gram Stain - Final 08/11/23 19:05 [place]ana [place] Urine Culture - Final Rajiv glabrata 08/12/23 09:56 Nasopharyngeal Respiratory Panel (PCR) - Final 08/01/23 07:33 Blood - Right Antecubital Blood Culture - Final NO GROWTH 5 DAYS 08/01/23 07:40 Blood - Left Hand Blood Culture - Final NO GROWTH 5 DAYS 08/02/23 03:30 Urine - Santana Catheter Urine Culture - Final No Growth 2 Days 08/01/23 09:00 Sputum - Endotrachael Aerobic Culture - Final Rajiv dubliniensis 08/01/23 09:00 Sputum - Endotrachael Gram Stain - Final 08/01/23 09:30 Nasopharyngeal Respiratory Panel (PCR) - Final Allergies and Medications Allergies and Active Meds Allergies cefepime Allergy (Unknown, Verified 07/10/23 18:46) Hives lisinopril Allergy (Unknown, Verified 07/10/23 18:46) Swelling of Lip/Tongue/Throat, SWELLING metformin Allergy (Unknown, Verified 07/10/23 18:46) Back Pain, KIDNEY PAIN Active Medications Acetaminophen (Acetaminophen 650 Mg/20.3 Ml Oral.Susp) 650 mg NG-TUBE Q6H PRN PRN Reason: Fever or Pain Stop: 08/12/24 13:59 Last Admin: 08/18/23 20:29 Dose: 650 mg Albuterol (Albuterol Hfa 200 Puff/18 Gm Inhaler) 6 puff VENT Q6HR [facility] Stop: 07/31/24 11:59 Last Admin: 08/19/23 05:03 Dose: 6 puff Amlodipine Besylate (Amlodipine 10 Mg Tablet) 10 mg OG-TUBE DAILY [facility] Stop: 08/16/24 08:59 Last Admin: 08/19/23 08:36 Dose: 10 mg Aspirin (Aspirin 81 Mg Tab.Chew) 81 mg NG-TUBE DAILY [facility] Stop: 08/16/24 15:59 Last Admin: 08/19/23 08:36 Dose: 81 mg Clopidogrel Bisulfate (Clopidogrel Bisulfate 75 Mg Tablet) 75 mg NG-TUBE DAILY [facility] Stop: 08/16/24 15:59 Last Admin: 08/19/23 08:36 Dose: 75 mg Darbepoetin Abisai (Darbepoetin Abisai In Polysorbat 60 Mcg/Ml Vial) 60 mcg [facility]- [facility]; Protocol Stop: 08/12/24 09:04 Last Admin: 08/13/23 11:24 Dose: 60 mcg Dextrose (Dextrose 50% In Water 25 Gm/50 Ml Syringe) 0 gm IV-PUSH PRN PRN PRN Reason: Hypoglycemia Stop: 07/31/24 08:04 Last Admin: 08/19/23 05:25 Dose: 25 gm Diclofenac Sodium (Diclofenac Sodium 1% Gel 100 Gm Tube) 4 gm TOPICAL QID [facility] Stop: 08/16/24 17:59 Last Admin: 08/19/23 08:37 Dose: 4 gm Fentanyl Citrate (Fentanyl/Pf 100 Mcg/2 Ml Vial) 50 mcg IV-PUSH Q2H PRN PRN Reason: tracheostomy pain Last Admin: 08/18/23 15:14 Dose: 50 mcg Ferric Sodium Gluconate Complex (Sodium Ferric Gluconat/Sucrose 62.5 Mg/5 Ml Vial) 62.5 mg IV-PUSH We@0900 [facility] Stop: 08/12/24 09:04 Last Admin: 08/13/23 11:24 Dose: 62.5 mg Gabapentin (Gabapentin 300 Mg/6 Ml Udc) 100 mg NG-TUBE QPM [facility] Stop: 08/16/24 20:59 Last Admin: 08/18/23 20:28 Dose: 100 mg Glucose (Dextrose 40% Gel 15 Gm Tube) 0 gm PO PRN PRN PRN Reason: Hypoglycemia Stop: 07/31/24 08:04 Heparin Sodium (Porcine) (Heparin 5,000 Unit/Ml Vial) 5,000 unit SUBCUT Q8HR [facility] Stop: 08/01/24 13:59 Last Admin: 08/19/23 05:24 Dose: 5,000 unit Heparin Sodium (Porcine) (Heparin 10,000 Unit/10 Ml Vial) 4,100 unit IV PRN PRN PRN Reason: Dialysis Stop: 08/07/24 14:32 Last Admin: 08/18/23 09:35 Dose: 4,100 unit Heparin Sodium (Porcine) (Heparin 10,000 Unit/10 Ml Vial) 2,500 unit IV PRN PRN PRN Reason: Dialysis Stop: 08/01/24 09:40 Last Admin: 08/18/23 09:35 Dose: 2,500 unit Heparin Sodium (Porcine) (Heparin 10,000 Unit/10 Ml Vial) 1,500 unit IV PRN PRN PRN Reason: Dialysis Stop: 08/05/24 10:45 Last Admin: 08/18/23 09:35 Dose: 1,500 unit Hydralazine HCl (Hydralazine 20 Mg/Ml Vial) 10 mg IV-PUSH Q4H PRN PRN Reason: Hypertension Stop: 08/07/24 12:07 Last Admin: 08/15/23 04:42 Dose: 10 mg Sodium Chloride (0.9% Sodium Chloride 1,000 Ml) 1,000 mls @ 0 mls/hr MISCELLANE.Q0M PRN PRN Reason: Dialysis Stop: 07/31/24 10:31 Last Infusion: 08/18/23 09:36 Dose: Infused Sodium Chloride (0.9% Sodium Chloride 1,000 Ml) 1,000 mls @ 0 mls/hr MISCELLANE.Q0M PRN PRN Reason: Dialysis Stop: 08/01/24 09:40 Last Infusion: 08/15/23 11:39 Dose: Infused Dexmedetomidine HCl 400 mcg/ (Dextrose) 100 mls @ 4.84 mls/hr IV .[id number]; Protocol Stop: 08/04/24 10:14 Last Titration: 08/19/23 06:10 Dose: 0 mcg/kg/hr, 0 mls/hr Micafungin Sodium 100 mg/ (Sodium Chloride) 105 mls @ 105 mls/hr IV Q24H [facility] Stop: 08/21/23 16:59 Last Infusion: 08/18/23 19:00 Dose: Infused Insulin Aspart (Insulin Aspart 300 Units/3 Ml Insuln.Pen) 0 units SUBCUT Q6HR [facility]; Protocol Stop: 07/31/24 11:59 Last Admin: 08/19/23 05:24 Dose: Not Given Insulin Glargine (Insulin Glargine 300 Units/3 Ml Insuln.Pen) 30 units SUBCUT BID [facility] Stop: 08/16/24 20:59 Last Admin: 08/19/23 08:37 Dose: 30 units Lansoprazole (Lansoprazole Solutab *Nf* 30 Mg Tab.Rap.Dr) 30 mg PEG DAILY [facility] Stop: 08/16/24 08:59 Last Admin: 08/19/23 08:37 Dose: 30 mg Magnesium Hydroxide (Magnesium Hydroxide Susp 30 Ml Udc) 30 ml PO DAILY PRN PRN Reason: Constipation Stop: 08/02/24 22:13 Metoprolol Tartrate (Metoprolol Tartrate 5 Mg/5 Ml Vial) 5 mg IV-PUSH Q4H PRN PRN Reason: Blood Pressure Stop: 08/13/24 12:28 Metoprolol Tartrate (Metoprolol Tartrate 50 Mg Tablet) 50 mg NG-TUBE BID [facility] Stop: 08/15/24 20:59 Last Admin: 08/19/23 08:36 Dose: 50 mg Quetiapine Fumarate (Quetiapine Fumarate 50 Mg Tablet) 50 mg PO BID.9A.2P [facility] Stop: 08/12/24 13:59 Last Admin: 08/19/23 08:36 Dose: 50 mg Sodium Chloride (Sodium Chloride 0.9 % 10 Ml Syringe) 0 ml IV-PUSH PRN PRN PRN Reason: Flush Stop: 07/31/24 10:31 Last Admin: 08/18/23 09:35 Dose: 40 ml Sodium Chloride (Sodium Chloride 0.9 % 10 Ml Syringe) 0 ml IV-PUSH PRN PRN PRN Reason: Flush Stop: 08/01/24 09:40 Last Admin: 08/15/23 11:38 Dose: 40 ml A&P - Infectious Disease Assessment/Plan (1) Leukocytosis: (2) Respiratory failure: (3) Osteomyelitis of left foot: (4) Thrombocytosis: Plan His meropenem was discontinued Wednesday 08/16 as he had been on and off this medication 2 times during this hospital stay. No bacterial etiology supports tocontinued use. He is continuing micafungin for now given the Rajiv glabrata from his urine but not too convinced his sputum warrants Rx. To finish 7 days. As for the fungal like structure I would anticipate given the lack of CT scan findings concerning for a fungal infection would think this is a colonizer as well. White count continues to improve. Platelet count which was significant elevatedyesterday still is elevated but is slightly less. Documented By: Michael Ramírez MD 08/19/2321 Signed By: <Electronically signed by MD Michael Ramírez> 08/19/2323 [facility] Work Phone: [phone]) 605-747003-26-2024 Progress note Author Michael Ramírez [facility] August 19, 2023 9:21am Note Date/Time August 18, 2023 8:5 4am [facility] [address] [place] [address] Infect. Disease Progress Note Signed Patient: Sudeep Diego JR MR#: [id number] : 1950 Acct:[id number] Age/Sex: 72 / M Adm Date: 4 Loc: Room: [address] [place] [address] Type: ADM IN Attending Dr: Arnaldo Thomas MD Copies to: ~ Date of Service: 08/18/2023 Subjective Interval history: Patient is comfortable this morning. Denies any complaints. Remains afebrile. Exam Physical Exam Vital Signs: Temp Pulse Resp BP Pulse Ox O2 Del Method O2 Flow Rate 98.7 F 67 18 168/86 H 98 Mechanical Ventilation 35 08/18/23 07:00 08/18/23 07:00 08/18/23 07:00 08/18/23 07:00 08/18/23 07:00 08/18/23 07:00 08/13/23 08:00 FiO2 30 08/18/23 07:59 Narrative: HD Cath R chest 08/01/23 Const General: cooperative, comfortable and no acute distress Orientation: alert, awake and oriented x3 HEENT Head: normal to inspection Nose: external nose normal (NGT) Face and sinus: normal facial exam Eyes General: appearance normal, both eyes and all related structures Neck Neck: not normal to visual inspection (trach) Chest Chest palpation & inspection: normal inspection of the chest Resp Effort & Inspection: normal respiratory effort Auscultation: diminished lung sounds Cardio Rate: regular rate GI Inspection: normal to inspection Auscultation: normal bowel sounds Skin General: other (TMA site with dressing) Neuro General: patient oriented x3 Extrem General: abnormal to inspection Objective Labs CBC/BMP: CBC, BMP 08/17/23 08/18/23 07:08 04:12 Corrected WBC 21.2 H 19.5 H Uncorrected WBC Count 21.2 H 19.5 H RBC 3.03 L 3.14 L Hgb 9.7 L 9.7 L Hct 28.3 L 28.4 L Plt Count 770 H 805 H Sodium 132 L Potassium 3.5 Chloride 98 Carbon Dioxide 26.8 Anion Gap 10.7 BUN 91 H Creatinine 2.95 H Calcium 8.6 Labs: 08/18/23 04:12 BUN 91 H Creatinine 2.95 H Microbiology Microbiology: Microbiology - Results from entire visit 08/11/23 09:26 Blood - Left Antecubital Blood Culture - Final NO GROWTH 5 DAYS 08/11/23 09:25 Blood - Left Hand Blood Culture - Final NO GROWTH 5 DAYS 08/13/23 14:18 Sputum - Endotrachael Aerobic Culture - Final Light Normal Respiratory Suyapa 2 Days 08/13/23 14:18 Sputum - Endotrachael Gram Stain - Final 08/12/23 09:50 Sputum - Endotrachael Aerobic Culture - Preliminary Rajiv albicans Fungal like structure 08/12/23 09:50 Sputum - Endotrachael Gram Stain - Final 08/11/23 19:05 [place] Port Urine Culture - Final Rajiv glabrata 08/12/23 09:56 Nasopharyngeal Respiratory Panel (PCR) - Final 08/01/23 07:33 Blood - Right Antecubital Blood Culture - Final NO GROWTH 5 DAYS 08/01/23 07:40 Blood - Left Hand Blood Culture - Final NO GROWTH 5 DAYS 08/02/23 03:30 Urine - Santana Catheter Urine Culture - Final No Growth 2 Days 08/01/23 09:00 Sputum - Endotrachael Aerobic Culture - Final Rajiv dubliniensis 08/01/23 09:00 Sputum - Endotrachael Gram Stain - Final 08/01/23 09:30 Nasopharyngeal Respiratory Panel (PCR) - Final Allergies and Medications Allergies and Active Meds Allergies cefepime Allergy (Unknown, Verified 07/10/23 18:46) Hives lisinopril Allergy (Unknown, Verified 07/10/23 18:46) Swelling of Lip/Tongue/Throat, SWELLING metformin Allergy (Unknown, Verified 07/10/23 18:46) Back Pain, KIDNEY PAIN Active Medications Acetaminophen (Acetaminophen 650 Mg/20.3 Ml Oral.Susp) 650 mg NG-TUBE Q6H PRN PRN Reason: Fever or Pain Stop: 08/12/24 13:59 Last Admin: 08/13/23 22:18 Dose: 650 mg Albuterol (Albuterol Hfa 200 Puff/18 Gm Inhaler) 6 puff VENT Q6HR [facility] Stop: 07/31/24 11:59 Last Admin: 08/18/23 05:23 Dose: 6 puff Amlodipine Besylate (Amlodipine 10 Mg Tablet) 10 mg OG-TUBE DAILY [facility] Stop: 08/16/24 08:59 Last Admin: 08/17/23 11:27 Dose: 10 mg Aspirin (Aspirin 81 Mg Tab.Chew) 81 mg NG-TUBE DAILY [facility] Stop: 08/16/24 15:59 Last Admin: 08/17/23 17:29 Dose: 81 mg Clopidogrel Bisulfate (Clopidogrel Bisulfate 75 Mg Tablet) 75 mg NG-TUBE DAILY [facility] Stop: 08/16/24 15:59 Last Admin: 08/17/23 17:29 Dose: 75 mg Darbepoetin Abisai (Darbepoetin Abisai In Polysorbat 60 Mcg/Ml Vial) 60 mcg [facility]- [facility]; Protocol Stop: 08/12/24 09:04 Last Admin: 08/13/23 11:24 Dose: 60 mcg Dextrose (Dextrose 50% In Water 25 Gm/50 Ml Syringe) 0 gm IV-PUSH PRN PRN PRN Reason: Hypoglycemia Stop: 07/31/24 08:04 Diclofenac Sodium (Diclofenac Sodium 1% Gel 100 Gm Tube) 4 gm TOPICAL QID [facility] Stop: 08/16/24 17:59 Last Admin: 08/17/23 23:40 Dose: 4 gm Fentanyl Citrate (Fentanyl/Pf 100 Mcg/2 Ml Vial) 50 mcg IV-PUSH Q2H PRN PRN Reason: tracheostomy pain Last Admin: 08/17/23 22:02 Dose: 50 mcg Ferric Sodium Gluconate Complex (Sodium Ferric Gluconat/Sucrose 62.5 Mg/5 Ml Vial) 62.5 mg IV-PUSH We@0900 [facility] Stop: 08/12/24 09:04 Last Admin: 08/13/23 11:24 Dose: 62.5 mg Gabapentin (Gabapentin Soln 250 Mg/5 Ml) 100 mg NG-TUBE QPM [facility] Stop: 08/16/24 20:59 Last Admin: 08/17/23 23:41 Dose: 100 mg Glucose (Dextrose 40% Gel 15 Gm Tube) 0 gm PO PRN PRN PRN Reason: Hypoglycemia Stop: 07/31/24 08:04 Heparin Sodium (Porcine) (Heparin 5,000 Unit/Ml Vial) 5,000 unit SUBCUT Q8HR [facility] Stop: 08/01/24 13:59 Last Admin: 08/18/23 06:29 Dose: 5,000 unit Heparin Sodium (Porcine) (Heparin 10,000 Unit/10 Ml Vial) 4,100 unit IV PRN PRN PRN Reason: Dialysis Stop: 08/07/24 14:32 Last Admin: 08/15/23 11:38 Dose: 4,100 unit Heparin Sodium (Porcine) (Heparin 10,000 Unit/10 Ml Vial) 2,500 unit IV PRN PRN PRN Reason: Dialysis Stop: 08/01/24 09:40 Last Admin: 08/15/23 11:38 Dose: 2,500 unit Heparin Sodium (Porcine) (Heparin 10,000 Unit/10 Ml Vial) 1,500 unit IV PRN PRN PRN Reason: Dialysis Stop: 08/05/24 10:45 Last Admin: 08/15/23 11:38 Dose: 1,500 unit Hydralazine HCl (Hydralazine 20 Mg/Ml Vial) 10 mg IV-PUSH Q4H PRN PRN Reason: Hypertension Stop: 08/07/24 12:07 Last Admin: 08/15/23 04:42 Dose: 10 mg Sodium Chloride (0.9% Sodium Chloride 1,000 Ml) 1,000 mls @ 0 mls/hr MISCELLANE.Q0M PRN PRN Reason: Dialysis Stop: 07/31/24 10:31 Last Infusion: 08/13/23 11:29 Dose: Infused Sodium Chloride (0.9% Sodium Chloride 1,000 Ml) 1,000 mls @ 0 mls/hr MISCELLANE.Q0M PRN PRN Reason: Dialysis Stop: 08/01/24 09:40 Last Infusion: 08/15/23 11:39 Dose: Infused Dexmedetomidine HCl 400 mcg/ (Dextrose) 100 mls @ 4.84 mls/hr IV .[id number] [facility]; Protocol Stop: 08/04/24 10:14 Last Titration: 08/18/23 05:33 Dose: 0 mcg/kg/hr, 0 mls/hr Micafungin Sodium 100 mg/ (Sodium Chloride) 105 mls @ 105 mls/hr IV Q24H [facility] Stop: 08/21/23 16:59 Last Admin: 08/17/23 17:29 Dose: 105 mls/hr Insulin Aspart (Insulin Aspart 300 Units/3 Ml Insuln.Pen) 0 units SUBCUT Q6HR [facility]; Protocol Stop: 07/31/24 11:59 Last Admin: 08/18/23 06:29 Dose: 3 units Insulin Glargine (Insulin Glargine 300 Units/3 Ml Insuln.Pen) 30 units SUBCUT BID [facility] Stop: 08/16/24 20:59 Last Admin: 08/17/23 23:41 Dose: 30 units Lansoprazole (Lansoprazole Solutab *Nf* 30 Mg Tab.Rap.Dr) 30 mg PEG DAILY [facility] Stop: 08/16/24 08:59 Last Admin: 08/17/23 11:27 Dose: 30 mg Magnesium Hydroxide (Magnesium Hydroxide Susp 30 Ml Udc) 30 ml PO DAILY PRN PRN Reason: Constipation Stop: 08/02/24 22:13 Metoprolol Tartrate (Metoprolol Tartrate 5 Mg/5 Ml Vial) 5 mg IV-PUSH Q4H PRN PRN Reason: Blood Pressure Stop: 08/13/24 12:28 Metoprolol Tartrate (Metoprolol Tartrate 50 Mg Tablet) 50 mg NG-TUBE BID [facility] Stop: 08/15/24 20:59 Last Admin: 08/17/23 23:41 Dose: 50 mg Quetiapine Fumarate (Quetiapine Fumarate 50 Mg Tablet) 50 mg PO BID.9A.2P [facility] Stop: 08/12/24 13:59 Last Admin: 08/17/23 14:45 Dose: Not Given Sodium Chloride (Sodium Chloride 0.9 % 10 Ml Syringe) 0 ml IV-PUSH PRN PRN PRN Reason: Flush Stop: 07/31/24 10:31 Last Admin: 08/11/23 11:57 Dose: 40 ml Sodium Chloride (Sodium Chloride 0.9 % 10 Ml Syringe) 0 ml IV-PUSH PRN PRN PRN Reason: Flush Stop: 08/01/24 09:40 Last Admin: 08/15/23 11:38 Dose: 40 ml A&P - Infectious Disease Assessment/Plan (1) Leukocytosis: (2) Respiratory failure: (3) Osteomyelitis of left foot: (4) Thrombocytosis: Plan His meropenem was discontinued yesterday as he had been on and off this medication 2 times during this hospital stay. No bacterial etiology supports tocontinued use. He is continuing micafungin for now given the Rajiv from his urine but not tooconvinced his sputum warrants Rx. As for the fungal like structure I would anticipate given the lack of CT scan findings concerning for a fungal infection would think this is a colonizer as well. Plan short course of Micafungin. Noted is this slowly downtrending WBC but rather significant thrombocytosis. Documented By: Michael Ramírez MD 08/18/23 0844 Signed By: <Electronically signed by MD Michael Ramírez> 08/19/23 0921 [facility] Work Phone: 1(193) 372-135903-25-2024 Progress note Author Mehul Garrett [facility] August 18, 2023 5:13pm Note Date/Time August 18, 2023 11: 28am [facility] [address] [place] [address] Pulmonology Progress Note Signed Patient: Sudeep Diego JR MR#: [id number] : 1950 Acct:[id number] Age/Sex: 72 / M Adm Date: 4 Loc: Room: [address] [place] [address] Type: ADM IN Attending Dr: Arnaldo Thomas MD Copies to: ~ Date of Service: 08/18/2023 Subjective Subjective Narrative: Patient does follow commands to squeeze hands. He shakes head no to pain. He is doing well with tracheostomy collar trial at time of my visit. There were noissues per nursing staff. Exam Physical Exam Vital Signs: Temp Pulse Resp BP Pulse Ox O2 Del Method O2 Flow Rate 97.6 F 80 24 144/64 H 98 Trach Collar 10 08/18/23 09:25 08/18/23 10:30 08/18/23 09:25 08/18/23 10:30 08/18/23 09:25 08/18/23 09:30 08/18/23 09:30 FiO2 30 08/18/23 11:00 Const Nutritional Appearance: average body habitus and overweight Orientation: not alert and not awake HEENT Head: normal to inspection, normocephalic and atraumatic Ears: external ears normal Nose: external nose normal Face and sinus: normal facial exam Eyes Eyelids: eyelids normal Neck Neck: normal visual inspection, no lymphadenopathy and tracheostomy present (cuffed Size 8 Shiley tracheostomy) Chest Chest palpation & inspection: normal inspection of the chest Resp Auscultation: clear to auscultation bilaterally, no rales, no rhonchi and no wheezes Cardio Rate: regular rate Rhythm: regular rhythm Heart Sounds: S1 normal, S2 normal, no gallops, no murmurs and no rubs GI Inspection: normal to inspection Palpation: soft and nontender Auscultation: hypoactive bowel sounds Rectal Exam: deferred General: deferred Skin General: no rashes or lesions noted (warm and dry) Extrem General: no pedal edema and amputation noted Transmetatarsal: left Objective Intake and Output I&O - Last 24 Hours: Intake & Output 08/17/23 08/18/23 08/18/23 23:59 07:59 15:59 Intake Total 100 / 316 100 / 600 500 / 600 Output Total 125 / 250 50 / 50 Balance - 50 / 550 500 / 550 Weight 190 lb 7.67 oz Labs 08/18/23 04:12 08/18/23 04:12 Assessment/Plan Assessment/Plan (1) Acute hypoxic respiratory failure: (2) Acute pulmonary edema: (3) ESRD (end stage renal disease): (4) T2DM (type 2 diabetes mellitus): (5) PAD (peripheral artery disease): Plan Hospital Day #17 for patient with acute on chronic respiratory failure on Micafungin and on daytime pressure support and nighttime volume control with nocturnal mechanical ventilatory support. Patient is awake and actually followscommands to squeeze hand today. He remains restless with certainly the possibility of restless leg syndrome given the patient's renal insufficiency. Per nursing staff there is concern for alternation in day/night cycle (ICU psychosis). Patient is on as needed fentanyl in addition to daytime Seroquel. Patient previously had little response to Precedex. We will try Precedex scheduled from 10 PM to 6 AM to try and facilitate nighttime sleep and try and prevent daytime somnolence promoting alteration in day night cycle. Case was discussed with infectious disease with patient noted to have thrombocytosis but without fever and stable leukocytosis with plan to reculture at first sign of ongoing infection. We await the speciation of the fungal like structure in the sputum with patient noted to have Rajiv glabrata in the urine. In the meantime, we will gradually increase tracheostomy collar trials as tolerated. Documented By: Mehul Garrett MD 4 1120 Signed By: <Electronically signed by MD Mehul Garrett> 08/18/23 1637 [facility] Work Phone: 1(331) 614-529403-25-2024 Progress note Author Arnaldo Thomas [facility] August 18, 2023 12:32pm Note Date/Time August 18, 2023 12: 26pm [facility] [address] [place] [address] Hospitalist Progress Note Signed Patient: Sudeep Diego JR MR#: [id number] : 1950 Acct:[id number] Age/Sex: 72 / M Adm Date: 4 Loc: Room: [address] [place] [address] Type: ADM IN Attending Dr: Arnaldo Thomas MD Copies to: ~ Date of Service: 08/18/2023 Subjective Subjective Narrative: Patient examined at bedside and currently getting hemodialysis. He is awake able to follow simple commands. He was placed on trach collar and then transition back to mechanical ventilator. Exam Physical Exam Vital Signs: Temp Pulse Resp BP Pulse Ox O2 Del Method O2 Flow Rate 97.6 F 78 24 149/84 H 98 Trach Collar 10 08/18/23 09:25 08/18/23 12:00 08/18/23 09:25 08/18/23 12:00 08/18/23 09:25 08/18/23 09:30 08/18/23 09:30 FiO2 30 08/18/23 11:00 Const General: cooperative Orientation: alert Other: Able to follow simple commands and does not appear to be in acute distress Resp Effort & Inspection: normal respiratory effort Auscultation: no rales, no rhonchi and no wheezes Neuro General: patient alert, moves all extremities and no focal motor deficits Objective Lab Results 08/18/23 04:12 08/18/23 04:12 Meds Allergies and Active Meds Allergies cefepime Allergy (Unknown, Verified 07/10/23 18:46) Hives lisinopril Allergy (Unknown, Verified 07/10/23 18:46) Swelling of Lip/Tongue/Throat, SWELLING metformin Allergy (Unknown, Verified 07/10/23 18:46) Back Pain, KIDNEY PAIN Active Meds: Active Medications Generic Name Dose Route Start Last Admin Trade Name Freq PRN Reason Stop Dose Admin Acetaminophen 650 mg 08/13/23 14:00 08/13/23 22:18 Acetaminophen 650 Mg/20.3 Ml Oral.Susp NG-TUBE 08/12/24 13:59 650 mg Q6H PRN Administration Fever or Pain Albuterol 6 puff 08/01/23 12:00 08/18/23 12:12 Albuterol Hfa 200 Puff/18 Gm Inhaler VENT 07/31/24 11:59 6 puff Q6HR [facility] Administration Amlodipine Besylate 10 mg 08/17/23 09:00 08/17/23 11:27 Amlodipine 10 Mg Tablet OG-TUBE 08/16/24 08:59 10 mg DAILY [facility] Administration Aspirin 81 mg 08/17/23 16:00 08/18/23 08:59 Aspirin 81 Mg Tab.Chew NG-TUBE 08/16/24 15:59 81 mg DAILY [facility] Administration Clopidogrel Bisulfate 75 mg 08/17/23 16:00 08/18/23 08:59 Clopidogrel Bisulfate 75 Mg Tablet NG-TUBE 08/16/24 15:59 75 mg DAILY [facility] Administration Darbepoetin Abisai 60 mcg 08/13/23 09:05 08/13/23 11:24 Darbepoetin Abisai In Polysorbat 60 Mcg/Ml Vial IV-PUSH 08/12/24 09:04 60 mcg QWEEK [facility] Administration Protocol Dextrose 0 gm 08/01/23 08:05 Dextrose 50% In Water 25 Gm/50 Ml Syringe IV-PUSH 07/31/24 08:04 PRN PRN Hypoglycemia Diclofenac Sodium 4 gm 08/17/23 18:00 08/18/23 09:00 Diclofenac Sodium 1% Gel 100 Gm Tube TOPICAL 08/16/24 17:59 4 gm QID [facility] Administration Fentanyl Citrate 50 mcg 08/13/23 14:00 08/17/23 22:02 Fentanyl/Pf 100 Mcg/2 Ml Vial IV-PUSH 50 mcg Q2H PRN Administration tracheostomy pain Ferric Sodium Gluconate Complex 62.5 mg 08/13/23 09:05 08/13/23 11:24 Sodium Ferric Gluconat/Sucrose 62.5 Mg/5 Ml Vial IV-PUSH 08/12/24 09:04 62.5 mg We@0900 [facility] Administration Gabapentin 100 mg 08/17/23 21:00 08/17/23 23:41 Gabapentin Soln 250 Mg/5 Ml NG-TUBE 08/16/24 20:59 100 mg QPM [facility] Administration Glucose 0 gm 08/01/23 08:05 Dextrose 40% Gel 15 Gm Tube PO 07/31/24 08:04 PRN PRN Hypoglycemia Heparin Sodium (Porcine) 5,000 unit 08/02/23 14:00 08/18/23 06:29 Heparin 5,000 Unit/Ml Vial SUBCUT 08/01/24 13:59 5,000 unit Q8HR [facility] Administration Heparin Sodium (Porcine) 4,100 unit 08/08/23 14:33 08/18/23 09:35 Heparin 10,000 Unit/10 Ml Vial IV 08/07/24 14:32 4,100 unit PRN PRN Administration Dialysis Heparin Sodium (Porcine) 2,500 unit 08/15/23 09:09 08/18/23 09:35 Heparin 10,000 Unit/10 Ml Vial IV 08/01/24 09:40 2,500 unit PRN PRN Administration Dialysis Heparin Sodium (Porcine) 1,500 unit 08/15/23 09:09 08/18/23 09:35 Heparin 10,000 Unit/10 Ml Vial IV 08/05/24 10:45 1,500 unit PRN PRN Administration Dialysis Hydralazine HCl 10 mg 08/08/23 12:08 08/15/23 04:42 Hydralazine 20 Mg/Ml Vial IV-PUSH 08/07/24 12:07 10 mg Q4H PRN Administration Hypertension Sodium Chloride 1,000 mls @ 0 mls/hr 08/01/23 10:32 08/18/23 09:36 0.9% Sodium Chloride 1,000 Ml MISCELLANE 07/31/24 10:31 Infused .Q0M PRN Infusion Dialysis As Directed Sodium Chloride 1,000 mls @ 0 mls/hr 08/02/23 09:41 08/15/23 11:39 0.9% Sodium Chloride 1,000 Ml MISCELLANE 08/01/24 09:40 Infused .Q0M PRN Infusion Dialysis As Directed Dexmedetomidine HCl 400 mcg/ 100 mls @ 4.84 mls/hr 08/05/23 10:15 08/18/23 05:33 Dextrose IV 08/04/24 10:14 0 mcg/kg/hr .[id number] [facility] 0 mls/hr Titration Protocol 0.2 MCG/KG/HR Micafungin Sodium 100 mg/ 105 mls @ 105 mls/hr 08/15/23 13:00 08/17/23 17:29 Sodium Chloride IV 08/21/23 16:59 105 mls/hr Q24H [facility] Administration Insulin Aspart 0 units 08/01/23 12:00 08/18/23 06:29 Insulin Aspart 300 Units/3 Ml Insuln.Pen SUBCUT 07/31/24 11:59 3 units Q6HR [facility] Administration Protocol Insulin Glargine 30 units 08/17/23 21:00 08/18/23 09:00 Insulin Glargine 300 Units/3 Ml Insuln.Pen SUBCUT 08/16/24 20:59 30 units BID [facility] Administration Lansoprazole 30 mg 08/17/23 09:00 08/18/23 08:59 Lansoprazole Solutab *Nf* 30 Mg Tab.Rap. PEG 08/16/24 08:59 30 mg DAILY [facility] Administration Magnesium Hydroxide 30 ml 08/03/23 22:14 Magnesium Hydroxide Susp 30 Ml Udc PO 08/02/24 22:13 DAILY PRN Constipation Metoprolol Tartrate 5 mg 08/14/23 12:29 Metoprolol Tartrate 5 Mg/5 Ml Vial IV-PUSH 08/13/24 12:28 Q4H PRN Blood Pressure Metoprolol Tartrate 50 mg 08/16/23 21:00 08/17/23 23:41 Metoprolol Tartrate 50 Mg Tablet NG-TUBE 08/15/24 20:59 50 mg BID [facility] Administration Quetiapine Fumarate 50 mg 08/13/23 14:00 08/18/23 08:59 Quetiapine Fumarate 50 Mg Tablet PO 08/12/24 13:59 50 mg BID.9A.2P [facility]ACI Administration Sodium Chloride 0 ml 08/01/23 10:32 08/18/23 09:35 Sodium Chloride 0.9 % 10 Ml Syringe IV-PUSH 07/31/24 10:31 40 ml PRN PRN Administration Flush Sodium Chloride 0 ml 08/02/23 09:41 08/15/23 11:38 Sodium Chloride 0.9 % 10 Ml Syringe IV-PUSH 08/01/24 09:40 40 ml PRN PRN Administration Flush A&P - Hospitalist Assessment/Plan (1) Acute hypoxic respiratory failure: (2) ESRD (end stage renal disease): (3) T2DM (type 2 diabetes mellitus): (4) Hyperlipemia: (5) HTN (hypertension): (6) PAD (peripheral artery disease): (7) Encephalopathy: (8) Anemia of renal disease: (9) Thrombocytosis: Plan Patient currently getting hemodialysis which is being followed by nephrology service. Santana catheter in place with minimal amount of urine output. Currently on micafungin as per ID recommendation given Rajiv growth in urine and sputum. His labs showing persistent leukocytosis and thrombocytosis. Remains afebrile. NG tube in place for nutrition support. Continue basal insulin with sliding scale coverage. On subcutaneous heparin for DVT prophylaxis. Respiratory failure being managed by pulmonary service. Documented By: Arnaldo Thomas MD 08/18/23 1225 Signed By: <Electronically signed by Arnaldo Thomas MD> 08/18/23 1232 [facility] Work Phone: [phone] 830-519303-25-2024 Progress note [facility] August 18, 2023 11:34am Note Date/Time August 18, 2023 11: 32am [facility] [address] [place] [address] Nephrology Progress Note Signed Patient: Sudeep Diego JR MR#: [id number] : 1950 Acct:[id number] Age/Sex: 72 / M Adm Date: 4 Loc: Room: [address] [place] [address] Type: ADM IN Attending Dr: Arnaldo Thomas MD Copies to: ~ Date of Service: 08/18/2023 Subjective Subjective Narrative: Mr. Diego is a 72-year-old male with history of DM2, HTN, PAD and prostate cancer. Patient was recently started on hemodialysis during his admission in June 2023 for SONYA possibly related to ATN versus Staph aureus glomerulonephritis. Patient had left diabetic wound s/p tarsometatarsal amputation. Creatinine has increased up to 5 mg/dL with no evidence of recovery. Patient was [facility] to [facility]. Patient presented to [facility] from his nursing facility with severe shortness of breath requiring intubation. Chest x-ray showed bilateral pulmonary infiltrate with possible pulmonary edema. Subsequently the patient was transferred to [facility] and he continues to be on vent. Respiratory swab showed evidence of influenza A. Patient was treated for healthcare associated pneumonia with vancomycin and meropenem. Troponin was found to be elevated up to 1700. Hemoglobin was only 6.5 g/dL in setting of infection. Cardiology evaluated the patient and no intervention is planned at this point atthe patient most likely has type II demand decreased cardiac perfusion. Patientrequired prolonged hospitalization and eventually he underwent tracheostomy and is still on ventilator. Nephrology was consulted for ESRD and dialysis. Interim History: Patient is up in the bed, awake with tracheostomy and vent that was done on August 11/2024 as he failed multiple attempts for extubation despite aggressive ultrafiltration. He continues to receive dialysis 3 times a week last hemodialysis was on Friday. Today creatinine slightly down to 2.95 mg/dL however BUN is still elevated 91 mg/dL. Urine output did increase however still low 200 mL over the last 24 hours. His blood pressure has been running high. He is currently on amlodipineand metoprolol. The function is markedly improved. Patient is holding that renal function will recover as baseline creatinine was close to 1 mg/dL in June 2023 before the ATN. Exam Physical Exam Vital Signs: Temp Pulse Resp BP Pulse Ox O2 Del Method O2 Flow Rate 36.4 C 80 24 144/64 H 98 Trach Collar 10 08/18/23 09:25 08/18/23 10:30 08/18/23 09:25 08/18/23 10:30 08/18/23 09:25 08/18/23 09:30 08/18/23 09:30 FiO2 30 08/18/23 11:00 Narrative: Constitutional: Looks ill, awake and able to answer questions even though he is on ventilator with tracheostomy HEENT: Atraumatic, normal cephalic. Significant pallor with no jaundice or cyanosis. Patient has NG tube Neck: He has tracheostomy on vent. No JVD. Cardiovascular: RRR, normal S1-S2, no gallop or rub, No JVD Respiratory: Diminished breath sounds with scattered crackles in both lung ashraf. Gastrointestinal: Soft, non tender, positive bowel sounds. No palpable organs or masses. Extremities: Still has edema however it is improved with ultrafiltration Skin: No rashes or bruises Musculoskeletal: No joints swellings or inflammation Neurology: Awake, alert and oriented x 3. Able to answer questions and move allextremities. Vascular access: Right IJ tunneled hemodialysis catheter with clean exit site. Objective Intake and Output I&O: Intake & Output 08/15/23 08/16/23 08/17/23 08/18/23 23:59 23:59 23:59 23:59 Intake Total 2045 / 2045 1759 / 1759 316 / 316 600 / 600 Output Total 2656 / 2656 110 / 110 250 / 250 50 / 50 Balance -611 / -611 1649 / 1649 66 / 66 550 / 550 Weight 85.6 kg 85.8 kg 86.6 kg 86.4 kg Meds and Allergies Meds: Active Medications Acetaminophen (Acetaminophen 650 Mg/20.3 Ml Oral.Susp) 650 mg NG-TUBE Q6H PRN PRN Reason: Fever or Pain Stop: 08/12/24 13:59 Last Admin: 08/13/23 22:18 Dose: 650 mg Albuterol (Albuterol Hfa 200 Puff/18 Gm Inhaler) 6 puff VENT Q6HR [facility] Stop: 07/31/24 11:59 Last Admin: 08/18/23 05:23 Dose: 6 puff Amlodipine Besylate (Amlodipine 10 Mg Tablet) 10 mg OG-TUBE DAILY [facility] Stop: 08/16/24 08:59 Last Admin: 08/17/23 11:27 Dose: 10 mg Aspirin (Aspirin 81 Mg Tab.Chew) 81 mg NG-TUBE DAILY [facility] Stop: 08/16/24 15:59 Last Admin: 08/18/23 08:59 Dose: 81 mg Clopidogrel Bisulfate (Clopidogrel Bisulfate 75 Mg Tablet) 75 mg NG-TUBE DAILY [facility] Stop: 08/16/24 15:59 Last Admin: 08/18/23 08:59 Dose: 75 mg Darbepoetin Abisai (Darbepoetin Abisai In Polysorbat 60 Mcg/Ml Vial) 60 mcg IV- PUSHQWEEK [facility]; Protocol Stop: 08/12/24 09:04 Last Admin: 08/13/23 11:24 Dose: 60 mcg Dextrose (Dextrose 50% In Water 25 Gm/50 Ml Syringe) 0 gm IV-PUSH PRN PRN PRN Reason: Hypoglycemia Stop: 07/31/24 08:04 Diclofenac Sodium (Diclofenac Sodium 1% Gel 100 Gm Tube) 4 gm TOPICAL QID [facility] Stop: 08/16/24 17:59 Last Admin: 08/18/23 09:00 Dose: 4 gm Fentanyl Citrate (Fentanyl/Pf 100 Mcg/2 Ml Vial) 50 mcg IV-PUSH Q2H PRN PRN Reason: tracheostomy pain Last Admin: 08/17/23 22:02 Dose: 50 mcg Ferric Sodium Gluconate Complex (Sodium Ferric Gluconat/Sucrose 62.5 Mg/5 Ml Vial) 62.5 mg IV-PUSH We@0900 [facility] Stop: 08/12/24 09:04 Last Admin: 08/13/23 11:24 Dose: 62.5 mg Gabapentin (Gabapentin Soln 250 Mg/5 Ml) 100 mg NG-TUBE QPM [facility] Stop: 08/16/24 20:59 Last Admin: 08/17/23 23:41 Dose: 100 mg Glucose (Dextrose 40% Gel 15 Gm Tube) 0 gm PO PRN PRN PRN Reason: Hypoglycemia Stop: 07/31/24 08:04 Heparin Sodium (Porcine) (Heparin 5,000 Unit/Ml Vial) 5,000 unit SUBCUT Q8HR [facility] Stop: 08/01/24 13:59 Last Admin: 08/18/23 06:29 Dose: 5,000 unit Heparin Sodium (Porcine) (Heparin 10,000 Unit/10 Ml Vial) 4,100 unit IV PRN PRN PRN Reason: Dialysis Stop: 08/07/24 14:32 Last Admin: 08/18/23 09:35 Dose: 4,100 unit Heparin Sodium (Porcine) (Heparin 10,000 Unit/10 Ml Vial) 2,500 unit IV PRN PRN PRN Reason: Dialysis Stop: 08/01/24 09:40 Last Admin: 08/18/23 09:35 Dose: 2,500 unit Heparin Sodium (Porcine) (Heparin 10,000 Unit/10 Ml Vial) 1,500 unit IV PRN PRN PRN Reason: Dialysis Stop: 08/05/24 10:45 Last Admin: 08/18/23 09:35 Dose: 1,500 unit Hydralazine HCl (Hydralazine 20 Mg/Ml Vial) 10 mg IV-PUSH Q4H PRN PRN Reason: Hypertension Stop: 08/07/24 12:07 Last Admin: 08/15/23 04:42 Dose: 10 mg Sodium Chloride (0.9% Sodium Chloride 1,000 Ml) 1,000 mls @ 0 mls/hr MISCELLANE.Q0M PRN PRN Reason: Dialysis Stop: 07/31/24 10:31 Last Infusion: 08/18/23 09:36 Dose: Infused Sodium Chloride (0.9% Sodium Chloride 1,000 Ml) 1,000 mls @ 0 mls/hr MISCELLANE.Q0M PRN PRN Reason: Dialysis Stop: 08/01/24 09:40 Last Infusion: 08/15/23 11:39 Dose: Infused Dexmedetomidine HCl 400 mcg/ (Dextrose) 100 mls @ 4.84 mls/hr IV .[id number] [facility]; Protocol Stop: 08/04/24 10:14 Last Titration: 08/18/23 05:33 Dose: 0 mcg/kg/hr, 0 mls/hr Micafungin Sodium 100 mg/ (Sodium Chloride) 105 mls @ 105 mls/hr IV Q24H [facility] Stop: 08/21/23 16:59 Last Admin: 08/17/23 17:29 Dose: 105 mls/hr Insulin Aspart (Insulin Aspart 300 Units/3 Ml Insuln.Pen) 0 units SUBCUT Q6HR [facility]; Protocol Stop: 07/31/24 11:59 Last Admin: 08/18/23 06:29 Dose: 3 units Insulin Glargine (Insulin Glargine 300 Units/3 Ml Insuln.Pen) 30 units SUBCUT BID [facility] Stop: 08/16/24 20:59 Last Admin: 08/18/23 09:00 Dose: 30 units Lansoprazole (Lansoprazole Solutab *Nf* 30 Mg Tab.Rap.) 30 mg PEG DAILY [facility] Stop: 08/16/24 08:59 Last Admin: 08/18/23 08:59 Dose: 30 mg Magnesium Hydroxide (Magnesium Hydroxide Susp 30 Ml Udc) 30 ml PO DAILY PRN PRN Reason: Constipation Stop: 08/02/24 22:13 Metoprolol Tartrate (Metoprolol Tartrate 5 Mg/5 Ml Vial) 5 mg IV-PUSH Q4H PRN PRN Reason: Blood Pressure Stop: 08/13/24 12:28 Metoprolol Tartrate (Metoprolol Tartrate 50 Mg Tablet) 50 mg NG-TUBE BID [facility] Stop: 08/15/24 20:59 Last Admin: 08/17/23 23:41 Dose: 50 mg Quetiapine Fumarate (Quetiapine Fumarate 50 Mg Tablet) 50 mg PO BID.9A.2P [facility] Stop: 08/12/24 13:59 Last Admin: 08/18/23 08:59 Dose: 50 mg Sodium Chloride (Sodium Chloride 0.9 % 10 Ml Syringe) 0 ml IV-PUSH PRN PRN PRN Reason: Flush Stop: 07/31/24 10:31 Last Admin: 08/18/23 09:35 Dose: 40 ml Sodium Chloride (Sodium Chloride 0.9 % 10 Ml Syringe) 0 ml IV-PUSH PRN PRN PRN Reason: Flush Stop: 08/01/24 09:40 Last Admin: 08/15/23 11:38 Dose: 40 ml Allergies cefepime Allergy (Unknown, Verified 07/10/23 18:46) Hives lisinopril Allergy (Unknown, Verified 07/10/23 18:46) Swelling of Lip/Tongue/Throat, SWELLING metformin Allergy (Unknown, Verified 07/10/23 18:46) Back Pain, KIDNEY PAIN Results - Nephrology Labs 08/18/23 04:12 08/18/23 04:12 Labs: 08/18/23 04:12 BUN 91 H Creatinine 2.95 H Radiology Impressions Impressions - last 24 hours: Impressions Abdomen X-Ray 08/17/23 10:49 IMPRESSION: Adequate position of NG tube Impression dictated by: Dhruv Conroy M.D.08/17/2023 1:13 PM Dictation Location: [place] [address] Abdomen X-Ray 08/17/23 20:44 IMPRESSION: Adequate position of NG tube Impression dictated by: Dhruv Conroy M.D.08/18/2023 8:54 AM Dictation Location: [place] [address] Any impression(s) listed above is documentation that was entered by the reading physician into a diagnostic report(s) for Sudeep Diego JR. I have reviewed the report(s) and am incorporating any findings in the treatment plan of this patient where applicable. A&P - Nephrology Assessment/Plan (1) SONYA (acute kidney injury): Assessment/Problem Details: Patient developed SONYA during his previous admission on June 2023 with left foot infection and staph bacteremia with no evidence of recovery currently on dialysis. Baseline creatinine was 1.1 mg/dL. Patient gets dialysis on MWF schedule (2) Acute pulmonary edema: Assessment/Problem Details: Patient presents with shortness of breath and respiratory failure. Chest x-ray showed pulmonary congestion with evidence of bilateral infiltrate. 2D echo showed dilated IVC with abnormal collapsibility suggestive of volume overload. Patient had total -5.5 L with ultrafiltration during hospitalization. (3) Acute hypoxic respiratory failure: Assessment/Problem Details: Patient has bilateral infiltrate on chest x-ray, respiratory swab was positive for influenza A. Patient is currently getting treatment for healthcare associated pneumonia as well since he has recent hospitalization (4) T2DM (type 2 diabetes mellitus): Assessment/Problem Details: He has insulin-dependent type 2 diabetes mellitus. He was taking insulin glargine at home. (5) Elevated troponin level not due to acute coronary syndrome: Assessment/Problem Details: He has a type II SD likely due to demand ischemia in setting of CHF and sepsis. (6) Anemia of renal disease: Assessment/Problem Details: He has anemia in the setting of SONYA with superimposed infection. Patient has elevated ferritin and low iron saturation in setting of infection. Plan * Although serum creatinine slightly down to 2.95 mg/dL however BUN still elevated with low urine output. Patient still requiring dialysis however we are going to cut down his ultrafiltration to 1 L today hoping that urine output will increase with recovery of renal function. However, patient was informed that he has multiple medical problems and chance that he will be completely off dialysis is less likely. * He is currently on micafungin and meropenem. Sputum culture showed Rajiv albicans. Pharmacy to dose medication based on ESRD status. * ANCA, and anti-GBM antibodies are negative. SUSANA positive for SLATE SPLITTER antibodies. Not sure about the clinical significant of these. Might have to do kidney biopsy when the patient is more stable. * Continue current dose of the metoprolol and metoprolol will monitor blood pressure to adjust dosage as indicated * Monitor H&H and transfuse as needed to keep the hemoglobin greater than 7.5 g/dL. * Monitor daily intake, output and renal panel to adjust medications and dialysis prescription as indicated. Documented By: Sury Winkler MD 08/18/23 1121 Signed By: <Electronically signed by MD Sury Winkler> 08/18/23 1134 [facility] Work Phone: [phone]) 232-590703-24-2024 Progress note Author Geo Thomas [facility] August 17, 2023 4:21pm Note Date/Time August 17, 2023 4:2 1pm [facility] [address] [place] [address] Hospitalist Progress Note Signed Patient: Sudeep Diego JR MR#: [id number] : 1950 Acct:[id number] Age/Sex: 72 / M Adm Date: 4 Loc: Room: [address] [place] [address] Type: ADM IN Attending Dr: Geo Thomas DO Copies to: ~ Date of Service: 08/17/2023 Subjective Subjective Narrative: Today the patient had some agitation and his blood pressure spiked upwards and he briefly had to have Precedex for sedation. When I come around in the afternoon he is awake. He is seated upright in bed. He is looking around. He is able to mouth some words. He looks even better than he did yesterday. His bedside nurse reports that the patient was able to dislodge the nasogastric tube today but it was replaced successfully. When I talked to the patient he is able to answer some questions with yes and nogestures and making left movements. He seems to deny all pain or problems except for back pain. He shakes his head yes when I ask him if he has had back pain off and on for a while. And so he shakes his head yes when asking if the bed has made him uncomfortable on the back. I reviewed his home medications. Prior to this he was on Plavix. He was also on Neurontin 300 mg a day. I did restart Plavix 75 mg daily and aspirin 81 mg daily as well as Neurontin 100 mg daily in the evening down the nasogastric tube. Exam Physical Exam Vital Signs: Temp Pulse Resp BP Pulse Ox O2 Del Method O2 Flow Rate 97.7 F 91 24 198/91 H 97 CPAP 35 08/17/23 11:39 08/17/23 14:00 08/17/23 14:00 08/17/23 14:00 08/17/23 14:00 08/17/23 14:00 08/13/23 08:00 FiO2 30 08/17/23 11:40 Narrative: General: Not on any sedation. Now awake and alert and looking around and able to make some yes and no gestures with his head and mouth some words with his lips. Tracheostomy site: This is in good condition. No bleeding. No drainage. Mouth: Mucosa members are moist. No thrush. Tongue midline. Pulmonary: Breath sounds are much more clear today, and equal bilaterally when auscultating anteriorly. There are some rhonchorous breath sounds so he still has some secretions which need to be mobilized. Cardiac: Normal sinus rhythm on the monitor today, HR about 80. GI: Abdomen is soft and nontender to palpation throughout. Normal bowel sounds to auscultation. Extremities: Legs currently have no edema whatsoever. The foot transmetatarsal amputation site is dressed. It is clean and dry. Today his left hand grasp is now strong and equal to his right hand. Objective Lab Results 08/17/23 07:08 08/17/23 07:08 Meds Allergies and Active Meds Allergies cefepime Allergy (Unknown, Verified 07/10/23 18:46) Hives lisinopril Allergy (Unknown, Verified 07/10/23 18:46) Swelling of Lip/Tongue/Throat, SWELLING metformin Allergy (Unknown, Verified 07/10/23 18:46) Back Pain, KIDNEY PAIN Active Meds: Active Medications Generic Name Dose Route Start Last Admin Trade Name Freq PRN Reason Stop Dose Admin Acetaminophen 650 mg 08/13/23 14:00 08/13/23 22:18 Acetaminophen 650 Mg/20.3 Ml Oral.Susp NG-TUBE 08/12/24 13:59 650 mg Q6H PRN Administration Fever or Pain Albuterol 6 puff 08/01/23 12:00 08/17/23 11:46 Albuterol Hfa 200 Puff/18 Gm Inhaler VENT 07/31/24 11:59 6 puff Q6HR [facility] Administration Amlodipine Besylate 10 mg 08/17/23 09:00 08/17/23 11:27 Amlodipine 10 Mg Tablet OG-TUBE 08/16/24 08:59 10 mg DAILY [facility] Administration Aspirin 81 mg 08/17/23 16:00 Aspirin 81 Mg Tab.Chew NG-TUBE 08/16/24 15:59 DAILY [facility] Clopidogrel Bisulfate 75 mg 08/17/23 16:00 Clopidogrel Bisulfate 75 Mg Tablet NG-TUBE 08/16/24 15:59 DAILY [facility] Darbepoetin Abisai 60 mcg 08/13/23 09:05 08/13/23 11:24 Darbepoetin Abisai In Polysorbat 60 Mcg/Ml Vial IV-PUSH 08/12/24 09:04 60 mcg QWEEK [facility] Administration Protocol Dextrose 0 gm 08/01/23 08:05 Dextrose 50% In Water 25 Gm/50 Ml Syringe IV-PUSH 07/31/24 08:04 PRN PRN Hypoglycemia Fentanyl Citrate 50 mcg 08/13/23 14:00 08/16/23 21:54 Fentanyl/Pf 100 Mcg/2 Ml Vial IV-PUSH 50 mcg Q2H PRN Administration tracheostomy pain Ferric Sodium Gluconate Complex 62.5 mg 08/13/23 09:05 08/13/23 11:24 Sodium Ferric Gluconat/Sucrose 62.5 Mg/5 Ml Vial IV-PUSH 08/12/24 09:04 62.5 mg We@0900 [facility] Administration Gabapentin 100 mg 08/17/23 21:00 Gabapentin Soln 250 Mg/5 Ml NG-TUBE 08/16/24 20:59 QPM [facility] Glucose 0 gm 08/01/23 08:05 Dextrose 40% Gel 15 Gm Tube PO 07/31/24 08:04 PRN PRN Hypoglycemia Heparin Sodium (Porcine) 5,000 unit 08/02/23 14:00 08/17/23 14:45 Heparin 5,000 Unit/Ml Vial SUBCUT 08/01/24 13:59 5,000 unit Q8HR [facility] Administration Heparin Sodium (Porcine) 4,100 unit 08/08/23 14:33 08/15/23 11:38 Heparin 10,000 Unit/10 Ml Vial IV 08/07/24 14:32 4,100 unit PRN PRN Administration Dialysis Heparin Sodium (Porcine) 2,500 unit 08/15/23 09:09 08/15/23 11:38 Heparin 10,000 Unit/10 Ml Vial IV 08/01/24 09:40 2,500 unit PRN PRN Administration Dialysis Heparin Sodium (Porcine) 1,500 unit 08/15/23 09:09 08/15/23 11:38 Heparin 10,000 Unit/10 Ml Vial IV 08/05/24 10:45 1,500 unit PRN PRN Administration Dialysis Hydralazine HCl 10 mg 08/08/23 12:08 08/15/23 04:42 Hydralazine 20 Mg/Ml Vial IV-PUSH 08/07/24 12:07 10 mg Q4H PRN Administration Hypertension Sodium Chloride 1,000 mls @ 0 mls/hr 08/01/23 10:32 08/13/23 11:29 0.9% Sodium Chloride 1,000 Ml MISCELLANE 07/31/24 10:31 Infused .Q0M PRN Infusion Dialysis As Directed Sodium Chloride 1,000 mls @ 0 mls/hr 08/02/23 09:41 08/15/23 11:39 0.9% Sodium Chloride 1,000 Ml MISCELLANE 08/01/24 09:40 Infused .Q0M PRN Infusion Dialysis As Directed Dexmedetomidine HCl 400 mcg/ 100 mls @ 4.84 mls/hr 08/05/23 10:15 08/16/23 21:53 Dextrose IV 08/04/24 10:14 0.6 mcg/kg/hr .[id number] [facility] 14.52 mls/hr Administration Protocol 0.2 MCG/KG/HR Micafungin Sodium 100 mg/ 105 mls @ 105 mls/hr 08/15/23 13:00 08/16/23 14:29 Sodium Chloride IV 08/21/23 16:59 105 mls/hr Q24H [facility] Administration Insulin Aspart 0 units 08/01/23 12:00 08/17/23 14:44 Insulin Aspart 300 Units/3 Ml Insuln.Pen SUBCUT 07/31/24 11:59 3 units Q6HR [facility] Administration Protocol Insulin Glargine 30 units 08/17/23 21:00 Insulin Glargine 300 Units/3 Ml Insuln.Pen SUBCUT 08/16/24 20:59 BID [facility] Lansoprazole 30 mg 08/17/23 09:00 08/17/23 11:27 Lansoprazole Solutab *Nf* 30 Mg Tab.Rap. PEG 08/16/24 08:59 30 mg DAILY [facility] Administration Magnesium Hydroxide 30 ml 08/03/23 22:14 Magnesium Hydroxide Susp 30 Ml Udc PO 08/02/24 22:13 DAILY PRN Constipation Metoprolol Tartrate 5 mg 08/14/23 12:29 Metoprolol Tartrate 5 Mg/5 Ml Vial IV-PUSH 08/13/24 12:28 Q4H PRN Blood Pressure Metoprolol Tartrate 50 mg 08/16/23 21:00 08/17/23 11:27 Metoprolol Tartrate 50 Mg Tablet NG-TUBE 08/15/24 20:59 50 mg BID [facility] Administration Quetiapine Fumarate 50 mg 08/13/23 14:00 08/17/23 14:45 Quetiapine Fumarate 50 Mg Tablet PO 08/12/24 13:59 Not Given BID.9A.2P [facility] Sodium Chloride 0 ml 08/01/23 10:32 08/11/23 11:57 Sodium Chloride 0.9 % 10 Ml Syringe IV-PUSH 07/31/24 10:31 40 ml PRN PRN Administration Flush Sodium Chloride 0 ml 08/02/23 09:41 08/15/23 11:38 Sodium Chloride 0.9 % 10 Ml Syringe IV-PUSH 08/01/24 09:40 40 ml PRN PRN Administration Flush A&P - Hospitalist Assessment/Plan (1) Acute hypoxic respiratory failure: (2) ESRD (end stage renal disease): (3) T2DM (type 2 diabetes mellitus): (4) Hyperlipemia: (5) HTN (hypertension): (6) PAD (peripheral artery disease): (7) Encephalopathy: (8) Anemia of renal disease: Plan Active Meds: Active Medications Generic Name Dose Route Start Last Admin Trade Name Freq PRN Reason Stop Dose Admin Acetaminophen 650 mg 08/01/23 14:13 08/05/23 22:20 Acetaminophen 325 Mg Tablet PO 07/31/24 14:12 650 mg Q6H PRN Administration Pain Albuterol 6 puff 08/01/23 12:00 08/06/23 05:05 Albuterol Hfa 200 Puff/18 Gm Inhaler VENT 07/31/24 11:59 6 puff Q6HR [facility] Administration Chlorhexidine Gluconate 15 ml 08/01/23 09:00 08/06/23 08:42 Chlorhexidine Gluconate 0.12% 15 Ml Udc MUCOUS MEM 07/31/24 08:59 15 ml BID [facility] Administration Dextrose 0 gm 08/01/23 08:05 Dextrose 50% In Water 25 Gm/50 Ml Syringe IV-PUSH 07/31/24 08:04 PRN PRN Hypoglycemia Docusate Sodium 100 mg 08/04/23 09:00 08/06/23 08:42 Docusate Liquid 100 Mg/10 Ml Udc PO 08/03/24 08:59 100 mg BID [facility] Administration Fentanyl Citrate 50 mcg 08/02/23 09:44 08/03/23 21:01 Fentanyl/Pf 100 Mcg/2 Ml Vial IV-PUSH 50 mcg Q2H PRN Administration Pain Scale 4 - 7 Glucose 0 gm 08/01/23 08:05 Dextrose 40% Gel 15 Gm Tube PO 07/31/24 08:04 PRN PRN Hypoglycemia Heparin Sodium (Porcine) 2,000 unit 08/01/23 10:32 08/04/23 18:04 Heparin 10,000 Unit/10 Ml Vial IV 07/31/24 10:31 2,000 unit PRN PRN Administration Dialysis Heparin Sodium (Porcine) 500 unit 08/01/23 10:32 08/04/23 18:05 Heparin 10,000 Unit/10 Ml Vial IV 07/31/24 10:31 500 unit PRN PRN Administration Dialysis Heparin Sodium (Porcine) 2,000 unit 08/02/23 09:41 08/02/23 22:59 Heparin 10,000 Unit/10 Ml Vial IV 08/01/24 09:40 2,000 unit PRN PRN Administration Dialysis Heparin Sodium (Porcine) 5,000 unit 08/02/23 14:00 08/06/23 06:28 Heparin 5,000 Unit/Ml Vial SUBCUT 08/01/24 13:59 5,000 unit Q8HR [facility] Administration Sodium Chloride 1,000 mls @ 0 mls/hr 08/01/23 10:32 08/04/23 18:05 0.9% Sodium Chloride 1,000 Ml MISCELLANE 07/31/24 10:31 Infused .Q0M PRN Infusion Dialysis As Directed Meropenem 0.5 gm in 100 mls @ 33.3 mls/hr 08/01/23 14:00 08/05/23 17:17 Merrem IV 08/07/23 17:01 Infused Q24H [facility] Infusion Sodium Chloride 1,000 mls @ 0 mls/hr 08/02/23 09:41 08/02/23 23:01 0.9% Sodium Chloride 1,000 Ml MISCELLANE 08/01/24 09:40 Infused .Q0M PRN Infusion Dialysis As Directed Fentanyl 1,000 mcg in 100 mls @ 2.5 mls/hr 08/03/23 22:30 08/06/23 06:29 Fentanyl 1,000 Mcg/100 Ml D5w IV Not Given .Q24H [facility] Protocol 25 MCG/HR Dexmedetomidine HCl 400 mcg/ 100 mls @ 4.84 mls/hr 08/05/23 10:15 08/06/23 07:43 Dextrose IV 08/04/24 10:14 1.5 mcg/kg/hr .[id number] [facility] 36.3 mls/hr Administration Protocol 0.2 MCG/KG/HR Midazolam HCl 100 mg in 100 mls @ 1 mls/hr 08/05/23 23:00 08/05/23 23:30 Versed IV 02/01/24 22:59 3 mg/hr .Q24H [facility] 3 mls/hr Titration Protocol 1 MG/HR Magnesium Sulfate 4 gm in 100 mls @ 25 mls/hr 08/06/23 09:20 Magnesium Sulf 4 Gm-*Swfi* IV 08/06/23 13:19 ONCE ONE Insulin Aspart 0 units 08/01/23 12:00 08/06/23 06:28 Insulin Aspart 300 Units/3 Ml Insuln.Pen SUBCUT 07/31/24 11:59 2 units Q6HR [facility] Administration Protocol Magnesium Hydroxide 30 ml 08/03/23 22:14 Magnesium Hydroxide Susp 30 Ml Udc PO 08/02/24 22:13 DAILY PRN Constipation Midazolam HCl 4 mg 08/05/23 11:12 08/05/23 22:41 Midazolam/Pf 2 Mg/2 Ml Vial IV-PUSH 02/01/24 11:11 4 mg Q3H PRN Administration Agitation Pantoprazole Sodium 40 mg 08/01/23 09:00 08/06/23 08:42 Pantoprazole 40 Mg Vial IV-PUSH 07/31/24 08:59 40 mg DAILY [facility] Administration Sennosides 8.8 mg 08/04/23 09:00 08/06/23 08:42 Sennosides Syrup 8.8 Mg/5 Ml Udc PO 08/03/24 08:59 8.8 mg BID [facility] Administration Sodium Chloride 10 ml 08/01/23 08:07 08/06/23 08:43 Sodium Chloride 0.9 % 10 Ml Vial.Pf INJECTION 07/31/24 08:06 10 ml PRN PRN Administration Dilution Sodium Chloride 10 ml 08/01/23 08:07 08/01/23 08:49 Sodium Chloride 0.9 % 10 Ml Syringe IV-PUSH 07/31/24 08:06 10 ml PRN PRN Administration Flush Sodium Chloride 0 ml 08/01/23 10:32 08/05/23 17:19 Sodium Chloride 0.9 % 10 Ml Syringe IV-PUSH 07/31/24 10:31 10 ml PRN PRN Administration Flush Sodium Chloride 0 ml 08/02/23 09:41 08/04/23 16:49 Sodium Chloride 0.9 % 10 Ml Syringe IV-PUSH 08/01/24 09:40 40 ml PRN PRN Administration Flush Please note, the above section about medications has been auto inserted into my document by the EHR somehow and cannot be removed. I do not know why it brings information dating in from 08/01 and 08/03. It is impossible for me to delete this. Therefore kindly dis-regard. Assessment: Acute hypoxic respiratory failure. 15 days of ventilator use. Influenza A. Present on admission. Significant problems with mucus plugging. Now improved after tracheostomy. Need for tracheostomy. Tracheostomy placed on 08/12/2023. Recent hospital stay with diabetic foot with kim osteomyelitis, transmetatarsal amputation, and MSSA osteomyelitis. Diabetes mellitus type 2. Hyperglycemic. A1C 8.1. Peripheral arterial disease with history of angioplasty left lower extremity in the past. Hypertension. Progression to maintenance requiring end-stage renal disease. ICU related psychosis, sleep-wake cycle disruption, sleep deprivation, and lingering delirium. This does seem to be getting gradually better. Plan: Metoprolol Tartrate to 50 mg every 12 hours today. Increased Lantus insulin to 30 units subcutaneously twice a day. Restarted gabapentin (home dose was 300 mg) at a lower dose of 100 mg p.o. everyafternoon. Restarted aspirin 81 mg daily down the nasogastric tube. Restarted Plavix 75 mg daily down the nasogastric tube Pulmonology has the patient on Seroquel. I defer to pulmonology/critical care on their decision making regarding medications to help regulate his sleep-wake cycle. Documented By: Geo Thomas DO [id number] Signed By: <Electronically signed by Geo Thomas, > 08/17/23 1621 [facility] Work Phone: [phone]) 962-154203-24-2024 Progress note Author Rancho Kay [facility] August 17, 2023 1:27pm Note Date/Time August 17, 2023 1:1 2pm [facility] [address] [place] [address] Nephrology Progress Note Signed Patient: Sudeep Diego JR MR#: [id number] : 1950 Acct:[id number] Age/Sex: 72 / M Adm Date: 4 Loc: Room: [address] [place] [address] Type: ADM IN Attending Dr: Geo Thomas DO Copies to: ~ Date of Service: 08/17/2023 Subjective Subjective Narrative: Mr. Diego is a 72-year-old male with history of DM2, HTN, PAD and prostate cancer. Patient was recently started on hemodialysis during his admission in June 2023 for SONYA possibly related to ATN versus Staph aureus glomerulonephritis. 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 Creatinine has increased up to 5 mg/dL with no evidence of recovery. [facility]. Patient presented to [facility] from his nursing facility with severe shortness of breath requiring intubation. Chest x-ray showed bilateral pulmonary infiltrate with possible pulmonary edema. Subsequently the patient was transferred to [facility] and he continues to be on vent. Respiratory swab showed evidence of influenza A. Patient is currently being treated for healthcare associated pneumonia with vancomycin and meropenem. Troponin was found to be elevated up to 1700. Hemoglobin was only 6.5 g/dL in setting of infection. Cardiology evaluated the patient and no intervention is planned at this point at the patient most likely has type II demand decreased cardiac perfusion. Nephrology was consulted for ESRD and dialysis. Interim History: Patient has a respiratory failure due to the pneumonia. He failed the weaning trials despite ultrafiltration and IV antibiotic treatment. He had tracheostomydone on August 12, 2023 and still requiring vent support. He continues to receive dialysis 3 times a week. His blood pressure has been running high. He is currently on amlodipine and metoprolol. Patient is being seen and examined at bedside. His mental status has been improving slowly. He is following commands. He reported to be discomfort with breathing due to the track. Exam Physical Exam Vital Signs: Temp Pulse Resp BP Pulse Ox O2 Del Method O2 Flow Rate 97.7 F 83 24 186/86 H 100 CPAP 35 08/17/23 11:39 08/17/23 13:00 08/17/23 13:00 08/17/23 13:00 08/17/23 13:00 08/17/23 13:00 08/13/23 08:00 FiO2 30 08/17/23 11:40 Narrative: General: Appears comfortable and not in distress Heart: S1-S2, no rub Lung: Bilateral air entry, no wheezing or crackles Abdomen: Soft, positive bowel sounds Extremities: No edema, no cyanosis Head: Atraumatic, normocephalic Ear: No external ear redness or tenderness Eyes: No pallor or redness Neck: No JVD or visible mass Skin: No rashes , warm to touch [employer]: Somnolent but arousable. Musculoskeletal: No large joint swelling or tenderness Objective Intake and Output I&O: Intake & Output 08/14/23 08/15/23 08/16/23 08/17/23 23:59 23:59 23:59 23:59 Intake Total 1276 / 1276 2045 / 2045 1654 / 1654 176 / 176 Output Total 145 / 145 2656 / 2656 110 / 110 50 / 50 Balance 1131 / 1131 -611 / -611 1544 / 1544 126 / 126 Weight 86.3 kg 85.6 kg 85.8 kg 86.6 kg Meds and Allergies Meds: Active Medications Acetaminophen (Acetaminophen 650 Mg/20.3 Ml Oral.Susp) 650 mg NG-TUBE Q6H PRN PRN Reason: Fever or Pain Stop: 08/12/24 13:59 Last Admin: 08/13/23 22:18 Dose: 650 mg Albuterol (Albuterol Hfa 200 Puff/18 Gm Inhaler) 6 puff VENT Q6HR [facility] Stop: 07/31/24 11:59 Last Admin: 08/17/23 11:46 Dose: 6 puff Amlodipine Besylate (Amlodipine 10 Mg Tablet) 10 mg OG-TUBE DAILY [facility] Stop: 08/16/24 08:59 Last Admin: 08/17/23 11:27 Dose: 10 mg Darbepoetin Abisai (Darbepoetin Abisai In Polysorbat 60 Mcg/Ml Vial) 60 mcg IV- [facility]; Protocol Stop: 08/12/24 09:04 Last Admin: 08/13/23 11:24 Dose: 60 mcg Dextrose (Dextrose 50% In Water 25 Gm/50 Ml Syringe) 0 gm IV-PUSH PRN PRN PRN Reason: Hypoglycemia Stop: 07/31/24 08:04 Fentanyl Citrate (Fentanyl/Pf 100 Mcg/2 Ml Vial) 50 mcg IV-PUSH Q2H PRN PRN Reason: tracheostomy pain Last Admin: 08/16/23 21:54 Dose: 50 mcg Ferric Sodium Gluconate Complex (Sodium Ferric Gluconat/Sucrose 62.5 Mg/5 Ml Vial) 62.5 mg IV-PUSH We@0900 [facility] Stop: 08/12/24 09:04 Last Admin: 08/13/23 11:24 Dose: 62.5 mg Glucose (Dextrose 40% Gel 15 Gm Tube) 0 gm PO PRN PRN PRN Reason: Hypoglycemia Stop: 07/31/24 08:04 Heparin Sodium (Porcine) (Heparin 5,000 Unit/Ml Vial) 5,000 unit SUBCUT Q8HR [facility] Stop: 08/01/24 13:59 Last Admin: 08/17/23 05:32 Dose: 5,000 unit Heparin Sodium (Porcine) (Heparin 10,000 Unit/10 Ml Vial) 4,100 unit IV PRN PRN PRN Reason: Dialysis Stop: 08/07/24 14:32 Last Admin: 08/15/23 11:38 Dose: 4,100 unit Heparin Sodium (Porcine) (Heparin 10,000 Unit/10 Ml Vial) 2,500 unit IV PRN PRN PRN Reason: Dialysis Stop: 08/01/24 09:40 Last Admin: 08/15/23 11:38 Dose: 2,500 unit Heparin Sodium (Porcine) (Heparin 10,000 Unit/10 Ml Vial) 1,500 unit IV PRN PRN PRN Reason: Dialysis Stop: 08/05/24 10:45 Last Admin: 08/15/23 11:38 Dose: 1,500 unit Hydralazine HCl (Hydralazine 20 Mg/Ml Vial) 10 mg IV-PUSH Q4H PRN PRN Reason: Hypertension Stop: 08/07/24 12:07 Last Admin: 08/15/23 04:42 Dose: 10 mg Sodium Chloride (0.9% Sodium Chloride 1,000 Ml) 1,000 mls @ 0 mls/hr MISCELLANE.Q0M PRN PRN Reason: Dialysis Stop: 07/31/24 10:31 Last Infusion: 08/13/23 11:29 Dose: Infused Sodium Chloride (0.9% Sodium Chloride 1,000 Ml) 1,000 mls @ 0 mls/hr MISCELLANE.Q0M PRN PRN Reason: Dialysis Stop: 08/01/24 09:40 Last Infusion: 08/15/23 11:39 Dose: Infused Dexmedetomidine HCl 400 mcg/ (Dextrose) 100 mls @ 4.84 mls/hr IV .[id number] [facility]; Protocol Stop: 08/04/24 10:14 Last Admin: 08/16/23 21:53 Dose: 0.6 mcg/kg/hr, 14.52 mls/hr Micafungin Sodium 100 mg/ (Sodium Chloride) 105 mls @ 105 mls/hr IV Q24H [facility] Stop: 08/21/23 13:59 Last Admin: 08/16/23 14:29 Dose: 105 mls/hr Insulin Aspart (Insulin Aspart 300 Units/3 Ml Insuln.Pen) 0 units SUBCUT Q6HR [facility]; Protocol Stop: 07/31/24 11:59 Last Admin: 08/17/23 05:32 Dose: 3 units Insulin Glargine (Insulin Glargine 300 Units/3 Ml Insuln.Pen) 25 units SUBCUT BID [facility] Stop: 08/15/24 20:59 Last Admin: 08/17/23 11:27 Dose: 25 units Lansoprazole (Lansoprazole Solutab *Nf* 30 Mg Tab.Rap.Dr) 30 mg PEG DAILY [facility] Stop: 08/16/24 08:59 Last Admin: 08/17/23 11:27 Dose: 30 mg Magnesium Hydroxide (Magnesium Hydroxide Susp 30 Ml Udc) 30 ml PO DAILY PRN PRN Reason: Constipation Stop: 08/02/24 22:13 Metoprolol Tartrate (Metoprolol Tartrate 5 Mg/5 Ml Vial) 5 mg IV-PUSH Q4H PRN PRN Reason: Blood Pressure Stop: 08/13/24 12:28 Metoprolol Tartrate (Metoprolol Tartrate 50 Mg Tablet) 50 mg NG-TUBE BID [facility] Stop: 08/15/24 20:59 Last Admin: 08/17/23 11:27 Dose: 50 mg Quetiapine Fumarate (Quetiapine Fumarate 50 Mg Tablet) 50 mg PO BID.9A.2P [facility] Stop: 08/12/24 13:59 Last Admin: 08/17/23 11:27 Dose: 50 mg Sodium Chloride (Sodium Chloride 0.9 % 10 Ml Syringe) 0 ml IV-PUSH PRN PRN PRN Reason: Flush Stop: 07/31/24 10:31 Last Admin: 08/11/23 11:57 Dose: 40 ml Sodium Chloride (Sodium Chloride 0.9 % 10 Ml Syringe) 0 ml IV-PUSH PRN PRN PRN Reason: Flush Stop: 08/01/24 09:40 Last Admin: 08/15/23 11:38 Dose: 40 ml Allergies cefepime Allergy (Unknown, Verified 07/10/23 18:46) Hives lisinopril Allergy (Unknown, Verified 07/10/23 18:46) Swelling of Lip/Tongue/Throat, SWELLING metformin Allergy (Unknown, Verified 07/10/23 18:46) Back Pain, KIDNEY PAIN Results - Nephrology Labs 08/17/23 07:08 08/17/23 07:08 Labs: 08/17/23 07:08 BUN 72 H Creatinine 3.33 H Radiology Impressions Impressions - last 24 hours: Any impression(s) listed above is documentation that was entered by the reading physician into a diagnostic report(s) for Sudeep Diego JR. I have reviewed the report(s) and am incorporating any findings in the treatment plan of this patient where applicable. A&P - Nephrology Assessment/Plan (1) SONYA (acute kidney injury): Assessment/Problem Details: Patient developed SONYA during his previous admission on June 2023 with left foot infection and staph bacteremia with no evidence of recovery currently on dialysis. Baseline creatinine was 1.1 mg/dL. Patient gets dialysis on MWF schedule (2) Acute pulmonary edema: Assessment/Problem Details: Patient presents with shortness of breath and respiratory failure. Chest x-ray showed pulmonary congestion with evidence of bilateral infiltrate. 2D echo showed dilated IVC with abnormal collapsibility suggestive of volume overload (3) Acute hypoxic respiratory failure: Assessment/Problem Details: Patient has bilateral infiltrate on chest x-ray, respiratory swab was positive for influenza A. Patient is currently getting treatment for healthcare associated pneumonia as well since he has recent hospitalization (4) T2DM (type 2 diabetes mellitus): Assessment/Problem Details: He has insulin-dependent type 2 diabetes mellitus. He was taking insulin glargine at home. (5) Elevated troponin level not due to acute coronary syndrome: Assessment/Problem Details: He has a type II SD likely due to demand ischemia in setting of CHF and sepsis. (6) Anemia of renal disease: Assessment/Problem Details: He has anemia in the setting of SONYA with superimposed infection. Patient has elevated ferritin and low iron saturation in setting of infection. Plan * No need for dialysis today. Next dialysis will be on Friday. * He is currently on micafungin and meropenem. Continue antibiotics for sepsis.. Pharmacy to dose medication based on ESRD status. * ANCA, and anti-GBM antibodies are negative. SUSANA positive for SLATE SPLITTER antibodies. Not sure about the clinical significant of these. Might have to do kidney biopsy when the patient is more stable. * Continue current dose of amlodipine to 10 mg daily. Will continue to adjust medication as needed. * Continue current dose of the metoprolol. * Monitor H&H and transfuse as needed to keep the hemoglobin greater than 7.5 g/dL. * Vent management as directed by pulmonary service * Check renal function daily and monitor input output. * Documented By: Rancho Kay MD 08/17/23 1310 Signed By: <Electronically signed by Rancho Kay MD> 08/17/23 1327 [facility] Work Phone: [phone] 392-601603-24-2024 Consult note Author Michael Ramírez [facility] August 17, 2023 11:04am Note Date/Time August 17, 2023 10: 24am [facility] [address] [place] [address] Infect. Disease Consult Note Signed Patient: Sudeep Diego JR MR#: [id number] : 1950 Acct:[id number] Age/Sex: 72 / M Adm Date: 4 Loc: Room: 0P8105-7 Type: ADM IN Attending Dr: Geo Thomas DO Copies to: DO Tejas Claudio MD Michael S Blank, MD~ HPI Data of Consult Consult date: 08/17/23 Requesting Physician: Geo Thomas DO Primary Care Provider: Tejas Stevens MD Consult Narrative History of present illness: Mr. Diego is a 72 year old male who has been admitted since July 31. He had acute respiratory failure and was positive for influenza A. Hehas issues with mucous plugging he was on the ventilator. He is now status posttracheostomy on the . Patient recently had osteomyelitis status post transmetatarsal amputation grew Staph aureus. He has peripheral arterial disease. He has been on broad-spectrum antibiotic therapy since [facility]. Received meropenem from July 31 through and then it was restarted on the and he remains on it at this day. Did receive vancomycin intermittently as well. Micafungin was added on the . It appears his whitecount significantly jumped the day of the tracheostomy however early am his WBC was 40 the day of this procedure. and is slowly trending down since. In speaking with the nurse there really has not been any acute clinical changes over the last 48 hours. Patient has remained afebrile with 1 isolated fever at 100.6 noted on the night of the . 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 Osteomyelitis Diabetic foot infection Diabetes mellitus due to underlying condition with [...] Brother Cancer muscle Social History Smoking Status: Light tobacco smoker Tobacco Type: cigars Substance Use Type: Marijuana Substance Abuse Comment: former drinker quit several years ago Allergies and Medications Allergies and Active Meds Allergies cefepime Allergy (Unknown, Verified 07/10/23 18:46) Hives lisinopril Allergy (Unknown, Verified 07/10/23 18:46) Swelling of Lip/Tongue/Throat, SWELLING metformin Allergy (Unknown, Verified 07/10/23 18:46) Back Pain, KIDNEY PAIN Active Medications Acetaminophen (Acetaminophen 650 Mg/20.3 Ml Oral.Susp) 650 mg NG-TUBE Q6H PRN PRN Reason: Fever or Pain Stop: 08/12/24 13:59 Last Admin: 08/13/23 22:18 Dose: 650 mg Albuterol (Albuterol Hfa 200 Puff/18 Gm Inhaler) 6 puff VENT Q6HR [facility] Stop: 07/31/24 11:59 Last Admin: 08/17/23 05:42 Dose: 6 puff Amlodipine Besylate (Amlodipine 10 Mg Tablet) 10 mg OG-TUBE DAILY [facility] Stop: 08/16/24 08:59 Darbepoetin Abisai (Darbepoetin Abisai In Polysorbat 60 Mcg/Ml Vial) 60 mcg IV- [facility]; Protocol Stop: 08/12/24 09:04 Last Admin: 08/13/23 11:24 Dose: 60 mcg Dextrose (Dextrose 50% In Water 25 Gm/50 Ml Syringe) 0 gm IV-PUSH PRN PRN PRN Reason: Hypoglycemia Stop: 07/31/24 08:04 Fentanyl Citrate (Fentanyl/Pf 100 Mcg/2 Ml Vial) 50 mcg IV-PUSH Q2H PRN PRN Reason: tracheostomy pain Last Admin: 08/16/23 21:54 Dose: 50 mcg Ferric Sodium Gluconate Complex (Sodium Ferric Gluconat/Sucrose 62.5 Mg/5 Ml Vial) 62.5 mg IV-PUSH We@0900 [facility] Stop: 08/12/24 09:04 Last Admin: 08/13/23 11:24 Dose: 62.5 mg Glucose (Dextrose 40% Gel 15 Gm Tube) 0 gm PO PRN PRN PRN Reason: Hypoglycemia Stop: 07/31/24 08:04 Heparin Sodium (Porcine) (Heparin 5,000 Unit/Ml Vial) 5,000 unit SUBCUT Q8HR [facility] Stop: 08/01/24 13:59 Last Admin: 08/17/23 05:32 Dose: 5,000 unit Heparin Sodium (Porcine) (Heparin 10,000 Unit/10 Ml Vial) 4,100 unit IV PRN PRN PRN Reason: Dialysis Stop: 08/07/24 14:32 Last Admin: 08/15/23 11:38 Dose: 4,100 unit Heparin Sodium (Porcine) (Heparin 10,000 Unit/10 Ml Vial) 2,500 unit IV PRN PRN PRN Reason: Dialysis Stop: 08/01/24 09:40 Last Admin: 08/15/23 11:38 Dose: 2,500 unit Heparin Sodium (Porcine) (Heparin 10,000 Unit/10 Ml Vial) 1,500 unit IV PRN PRN PRN Reason: Dialysis Stop: 08/05/24 10:45 Last Admin: 08/15/23 11:38 Dose: 1,500 unit Hydralazine HCl (Hydralazine 20 Mg/Ml Vial) 10 mg IV-PUSH Q4H PRN PRN Reason: Hypertension Stop: 08/07/24 12:07 Last Admin: 08/15/23 04:42 Dose: 10 mg Sodium Chloride (0.9% Sodium Chloride 1,000 Ml) 1,000 mls @ 0 mls/hr MISCELLANE.Q0M PRN PRN Reason: Dialysis Stop: 07/31/24 10:31 Last Infusion: 08/13/23 11:29 Dose: Infused Sodium Chloride (0.9% Sodium Chloride 1,000 Ml) 1,000 mls @ 0 mls/hr MISCELLANE.Q0M PRN PRN Reason: Dialysis Stop: 08/01/24 09:40 Last Infusion: 08/15/23 11:39 Dose: Infused Dexmedetomidine HCl 400 mcg/ (Dextrose) 100 mls @ 4.84 mls/hr IV .[id number] [facility]; Protocol Stop: 08/04/24 10:14 Last Admin: 08/16/23 21:53 Dose: 0.6 mcg/kg/hr, 14.52 mls/hr Meropenem (Merrem) 0.5 gm in 100 mls @ 33.333 mls/hr IV Q24H [facility] Last Admin: 08/16/23 16:45 Dose: 33.33 mls/hr Micafungin Sodium 100 mg/ (Sodium Chloride) 105 mls @ 105 mls/hr IV Q24H [facility] Stop: 08/21/23 13:59 Last Admin: 08/16/23 14:29 Dose: 105 mls/hr Insulin Aspart (Insulin Aspart 300 Units/3 Ml Insuln.Pen) 0 units SUBCUT Q6HR [facility]; Protocol Stop: 07/31/24 11:59 Last Admin: 08/17/23 05:32 Dose: 3 units Insulin Glargine (Insulin Glargine 300 Units/3 Ml Insuln.Pen) 25 units SUBCUT BID [facility] Stop: 08/15/24 20:59 Last Admin: 08/16/23 21:55 Dose: 25 units Lansoprazole (Lansoprazole Solutab *Nf* 30 Mg Tab.Rap.Dr) 30 mg PEG DAILY [facility] Stop: 08/16/24 08:59 Magnesium Hydroxide (Magnesium Hydroxide Susp 30 Ml Udc) 30 ml PO DAILY PRN PRN Reason: Constipation Stop: 08/02/24 22:13 Metoprolol Tartrate (Metoprolol Tartrate 5 Mg/5 Ml Vial) 5 mg IV-PUSH Q4H PRN PRN Reason: Blood Pressure Stop: 08/13/24 12:28 Metoprolol Tartrate (Metoprolol Tartrate 50 Mg Tablet) 50 mg NG-TUBE BID [facility] Stop: 08/15/24 20:59 Last Admin: 08/16/23 21:54 Dose: 50 mg Quetiapine Fumarate (Quetiapine Fumarate 50 Mg Tablet) 50 mg PO BID.9A.2P [facility] Stop: 08/12/24 13:59 Last Admin: 08/16/23 14:29 Dose: 50 mg Sodium Chloride (Sodium Chloride 0.9 % 10 Ml Syringe) 0 ml IV-PUSH PRN PRN PRN Reason: Flush Stop: 07/31/24 10:31 Last Admin: 08/11/23 11:57 Dose: 40 ml Sodium Chloride (Sodium Chloride 0.9 % 10 Ml Syringe) 0 ml IV-PUSH PRN PRN PRN Reason: Flush Stop: 08/01/24 09:40 Last Admin: 08/15/23 11:38 Dose: 40 ml Exam Physical Exam Vital Signs: Temp Pulse Resp BP Pulse Ox O2 Del Method O2 Flow Rate 99.0 F 70 19 142/67 H 97 Mechanical Ventilation 35 08/17/23 00:00 08/17/23 06:00 08/17/23 06:00 08/17/23 06:00 08/17/23 06:00 08/17/23 06:00 08/13/23 08:00 FiO2 30 08/17/23 06:00 Const General: cooperative, comfortable and no acute distress Orientation: alert, awake and oriented x3 HEENT Head: normal to inspection Face and sinus: normal facial exam Eyes General: appearance normal, both eyes and all related structures Neck Other: trach Chest Chest palpation & inspection: normal inspection of the chest Resp Effort & Inspection: normal respiratory effort Auscultation: diminished lung sounds Cardio Rate: regular rate and tachycardic GI Inspection: normal to inspection Auscultation: normal bowel sounds Skin General: other (tma site ok) Neuro General: patient oriented x3 Extrem General: abnormal to inspection Results - Infectious Disease Labs 08/17/23 07:08 08/17/23 07:08 Labs: 08/17/23 07:08: Corrected WBC 21.2 H, Uncorrected WBC Count 21.2 H, BUN 72 H, Creatinine 3.33 H Microbiology Results Microbiology Narrative: Microbiology - Results from entire visit 08/11/23 09:26 Blood - Left Antecubital Blood Culture - Final NO GROWTH 5 DAYS 08/11/23 09:25 Blood - Left Hand Blood Culture - Final NO GROWTH 5 DAYS 08/13/23 14:18 Sputum - Endotrachael Aerobic Culture - Final Light Normal Respiratory Suyapa 2 Days 08/13/23 14:18 Sputum - Endotrachael Gram Stain - Final 08/12/23 09:50 Sputum - Endotrachael Aerobic Culture - Preliminary Rajiv albicans Fungal like structure 08/12/23 09:50 Sputum - Endotrachael Gram Stain - Final 08/11/23 19:05 Santana Port Urine Culture - Final Rajiv glabrata 08/12/23 09:56 Nasopharyngeal Respiratory Panel (PCR) - Final 08/01/23 07:33 Blood - Right Antecubital Blood Culture - Final NO GROWTH 5 DAYS 08/01/23 07:40 Blood - Left Hand Blood Culture - Final NO GROWTH 5 DAYS 08/02/23 03:30 Urine - Santana Catheter Urine Culture - Final No Growth 2 Days 08/01/23 09:00 Sputum - Endotrachael Aerobic Culture - Final Rajiv dubliniensis 08/01/23 09:00 Sputum - Endotrachael Gram Stain - Final 08/01/23 09:30 Nasopharyngeal Respiratory Panel (PCR) - Final Imaging and Cardiology Status: report viewed by me Results Comments: CT: IMPRESSION: BILATERAL PARENCHYMAL CHANGES, GREATER ON THE RIGHT AND PLEURAL EFFUSIONS, LARGER ON THE LEFT. TINY PERICARDIAL EFFUSION. GRANULOMATOUS CHANGES. PROBABLE RIGHT RENAL CYST. NO BOWEL OR URINARY TRACT OBSTRUCTION. DIVERTICULOSIS. BLADDER WALL THICKENING, PROBABLY DUE TO UNDERDISTENTION THOUGH CORRELATION IS SUGGESTED TO EXCLUDE ANY POSSIBILITY OF CYSTITIS. A&P - Infectious Disease (1) Leukocytosis: (2) Respiratory failure: (3) Osteomyelitis of left foot: Plan Patient has been on meropenem at the beginning of his hospital stay and then it was just added again on the . I think his acute worsening perhaps came right around the time of his tracheostomy. New culture results did not yield anything bacterial hilliard. Sputum culture with Rajiv albicans and fungal like structure which probably will not be targeted by the micafungin but could be Aspergillus which could be a colonizer. CT scan of the chest reviewed. CXR reviewed. I do not see any reason to continue him on the meropenem given the fact that he got this for 4 to 5 days when he initially here as well and then it was restarted on the . He has received 12 days of this this hospital stay. He can continue micafungin for now given the Rajiv from his urine but not too convinced his sputum warrants Rx. As for the fungal like structure I would anticipate given the lack of CT scan findings concerning for a fungal infection would think this is a colonizer as well. Documented By: Michael Ramírez MD 08/17/23 1014 Signed By: <Electronically signed by MD Michael Ramírez> 08/17/23 1106 [facility] Work Phone: 1(393) 524-765403-24-2024 Progress note Author Morales Mckeon [facility] August 17, 2023 10:48am Note Date/Time August 17, 2023 10: 46am [facility] [address] [place] [address] Pulmonology Progress Note Signed Patient: Sudeep Diego JR MR#: [id number] : 1950 Acct:[id number] Age/Sex: 72 / M Adm Date: 4 Loc: Room: [address] [place] [address] Type: ADM IN Attending Dr: Geo Thomas DO Copies to: ~ Date of Service: 08/17/2023 Subjective Subjective Narrative: He was agitated this morning, started on Precedex drip. He is now back to his baseline. Switched to pressure support ventilation. Tracheostomy tube in place. No significant amount of respiratory secretions coming out from tracheotomy. No vasopressors. Afebrile Laboratory data and images reviewed Exam Physical Exam Vital Signs: Temp Pulse Resp BP Pulse Ox O2 Del Method O2 Flow Rate 99.0 F 70 19 142/67 H 97 Mechanical Ventilation 35 08/17/23 00:00 08/17/23 06:00 08/17/23 06:00 08/17/23 06:00 08/17/23 06:00 08/17/23 06:00 08/13/23 08:00 FiO2 30 08/17/23 10:00 Narrative: Constitutional: Awake, on mechanical ventilation, on Precedex HEENT: EOMi, PERRL+, oral mucosa moist Cardiovascular: Regular rate and rhythm, tachycardiac Respiratory: Coarse breath sounds in both lungs. Chest is symmetric GI: soft abdomen, hypoactive bowel sounds Neuro: Opening eyes, following simple commands, slightly agitated, no gross motor deficits Extremities: left transmetatarsal amputee, no clear signs of infection Objective Intake and Output I&O - Last 24 Hours: Intake & Output 08/16/23 08/17/23 08/17/23 23:59 07:59 15:59 Intake Total 898 / 1654 176 / 176 Output Total 40 / 110 50 / 50 Balance 858 / 1544 126 / 126 Weight 86.6 kg Labs 08/17/23 07:08 08/17/23 07:08 Microbiology Micro: Microbiology 3 08/11/23 09:26 Blood Culture - Final Blood - Left Antecubital NO GROWTH 5 DAYS 08/11/23 09:25 Blood Culture - Final Blood - Left Hand NO GROWTH 5 DAYS Assessment/Plan Assessment/Plan (1) Acute hypoxic respiratory failure: (2) Acute pulmonary edema: (3) ESRD (end stage renal disease): (4) T2DM (type 2 diabetes mellitus): (5) PAD (peripheral artery disease): Plan Neurochecks per ICU Avoid sedatives Precedex for sedation as needed Fentanyl as needed for analgesia Maintain mean arterial pressure higher than 65 PSV at day time back to AC/VC at [facility] Started on Micafungin 08/14 ID following Will defer antibiotic management to ID Waiting LTAC approval Continue supportive care. Documented By: Morales Mckeon MD [id number] Signed By: <Electronically signed by Morales Mckeon MD> 08/17/23 1048 [facility] Work Phone: [phone] 319-934603-23-2024 Progress note Author Geo Thomas [facility] August 16, 2023 8:48pm Note Date/Time August 16, 2023 8:4 8pm [facility] [address] [place] [address] Hospitalist Progress Note Signed Patient: Sudeep Diego JR MR#: [id number] : 1950 Acct:[id number] Age/Sex: 72 / M Adm Date: 4 Loc: Room: [address] [place] [address] Type: ADM IN Attending Dr: Geo Thomas DO Copies to: ~ Date of Service: 08/16/2023 Subjective Subjective Narrative: Bedside nurse today continues to report that the patient is not getting any sleep at all at nighttime. This evening the patient's looking around with his glasses on and can see the nurse and I talking about him outside of his room. He makes motions for the nurse to come and help him swab out his mouth. When I go in the room he can answer my questions with yes and no questions. Right now his only complaint seems to be of pain in his back from positioning inthe bed. He seems to deny pain in the tracheostomy site or headache. Exam Physical Exam Vital Signs: Temp Pulse Resp BP Pulse Ox O2 Del Method O2 Flow Rate 98.5 F 89 25 H 150/74 H 97 CPAP 35 08/16/23 19:49 08/16/23 19:49 08/16/23 19:49 08/16/23 19:49 08/16/23 19:49 08/16/23 20:00 08/13/23 08:00 FiO2 30 08/16/23 20:00 Narrative: General: Not on any sedation. Now awake and alert and looking around and able to make some yes and no gestures with his head and mouth some words with his lips. Tracheostomy site: This is in good condition. No bleeding. No drainage Pulmonary: Breath sounds are much more clear today, and equal bilaterally when auscultating anteriorly. Cardiac: Normal sinus rhythm on the monitor today, HR about 80. GI: Abdomen is soft and nontender to palpation throughout. Normal bowel sounds to auscultation. Extremities: Legs currently have no edema whatsoever. The foot transmetatarsal amputation site is dressed. It is clean and dry. Today weakness with left hand grasp is noticeable. His right hand grasp is strong. He is able to move both feet without any obvious difference between them. Objective Lab Results 08/16/23 03:40 08/16/23 06:15 Microbiology Results Microbiology 08/11/23 09:26 Blood - Left Antecubital Blood Culture - Final NO GROWTH 5 DAYS 08/11/23 09:25 Blood - Left Hand Blood Culture - Final NO GROWTH 5 DAYS Meds Allergies and Active Meds Allergies cefepime Allergy (Unknown, Verified 07/10/23 18:46) Hives lisinopril Allergy (Unknown, Verified 07/10/23 18:46) Swelling of Lip/Tongue/Throat, SWELLING metformin Allergy (Unknown, Verified 07/10/23 18:46) Back Pain, KIDNEY PAIN Active Meds: Active Medications Generic Name Dose Route Start Last Admin Trade Name Freq PRN Reason Stop Dose Admin Acetaminophen 650 mg 08/13/23 14:00 08/13/23 22:18 Acetaminophen 650 Mg/20.3 Ml Oral.Susp NG-TUBE 08/12/24 13:59 650 mg Q6H PRN Administration Fever or Pain Albuterol 6 puff 08/01/23 12:00 08/16/23 18:11 Albuterol Hfa 200 Puff/18 Gm Inhaler VENT 07/31/24 11:59 6 puff Q6HR KACI Administration Amlodipine Besylate 10 mg 08/17/23 09:00 Amlodipine 10 Mg Tablet OG-TUBE 08/16/24 08:59 DAILY KACI Darbepoetin Abisai 60 mcg 08/13/23 09:05 08/13/23 11:24 Darbepoetin Abisai In Polysorbat 60 Mcg/Ml Vial IV-PUSH 08/12/24 09:04 60 mcg QWEEK KACI Administration Protocol Dextrose 0 gm 08/01/23 08:05 Dextrose 50% In Water 25 Gm/50 Ml Syringe IV-PUSH 07/31/24 08:04 PRN PRN Hypoglycemia Fentanyl Citrate 50 mcg 08/13/23 14:00 08/15/23 04:43 Fentanyl/Pf 100 Mcg/2 Ml Vial IV-PUSH 50 mcg Q2H PRN Administration tracheostomy pain Ferric Sodium Gluconate Complex 62.5 mg 08/13/23 09:05 08/13/23 11:24 Sodium Ferric Gluconat/Sucrose 62.5 Mg/5 Ml Vial IV-PUSH 08/12/24 09:04 62.5 mg We@0900 KACI Administration Glucose 0 gm 08/01/23 08:05 Dextrose 40% Gel 15 Gm Tube PO 07/31/24 08:04 PRN PRN Hypoglycemia Heparin Sodium (Porcine) 5,000 unit 08/02/23 14:00 08/16/23 14:29 Heparin 5,000 Unit/Ml Vial SUBCUT 08/01/24 13:59 5,000 unit Q8HR KACI Administration Heparin Sodium (Porcine) 4,100 unit 08/08/23 14:33 08/15/23 11:38 Heparin 10,000 Unit/10 Ml Vial IV 08/07/24 14:32 4,100 unit PRN PRN Administration Dialysis Heparin Sodium (Porcine) 2,500 unit 08/15/23 09:09 08/15/23 11:38 Heparin 10,000 Unit/10 Ml Vial IV 08/01/24 09:40 2,500 unit PRN PRN Administration Dialysis Heparin Sodium (Porcine) 1,500 unit 08/15/23 09:09 08/15/23 11:38 Heparin 10,000 Unit/10 Ml Vial IV 08/05/24 10:45 1,500 unit PRN PRN Administration Dialysis Hydralazine HCl 10 mg 08/08/23 12:08 08/15/23 04:42 Hydralazine 20 Mg/Ml Vial IV-PUSH 08/07/24 12:07 10 mg Q4H PRN Administration Hypertension Sodium Chloride 1,000 mls @ 0 mls/hr 08/01/23 10:32 08/13/23 11:29 0.9% Sodium Chloride 1,000 Ml MISCELLANE 07/31/24 10:31 Infused .Q0M PRN Infusion Dialysis As Directed Sodium Chloride 1,000 mls @ 0 mls/hr 08/02/23 09:41 08/15/23 11:39 0.9% Sodium Chloride 1,000 Ml MISCELLANE 08/01/24 09:40 Infused .Q0M PRN Infusion Dialysis As Directed Dexmedetomidine HCl 400 mcg/ 100 mls @ 4.84 mls/hr 08/05/23 10:15 08/15/23 17:55 Dextrose IV 08/04/24 10:14 Not Given .[id number] KACI Protocol 0.2 MCG/KG/HR Meropenem 0.5 gm in 100 mls @ 33.333 mls/hr 08/13/23 16:30 08/16/23 16:45 Merrem IV 33.33 mls/hr Q24H KACI Administration Micafungin Sodium 100 mg/ 105 mls @ 105 mls/hr 08/15/23 13:00 08/16/23 14:29 Sodium Chloride IV 08/21/23 13:59 105 mls/hr Q24H KACI Administration Insulin Aspart 0 units 08/01/23 12:00 08/16/23 19:38 Insulin Aspart 300 Units/3 Ml Insuln.Pen SUBCUT 07/31/24 11:59 3 units Q6HR KACI Administration Protocol Insulin Glargine 25 units 08/16/23 21:00 Insulin Glargine 300 Units/3 Ml Insuln.Pen SUBCUT 08/15/24 20:59 BID KACI Lansoprazole 30 mg 08/17/23 09:00 Lansoprazole Solutab *Nf* 30 Mg Tab.Rap.Dr OBRIEN 08/16/24 08:59 DAILY KACI Magnesium Hydroxide 30 ml 08/03/23 22:14 Magnesium Hydroxide Susp 30 Ml Udc PO 08/02/24 22:13 DAILY PRN Constipation Metoprolol Tartrate 5 mg 08/14/23 12:29 Metoprolol Tartrate 5 Mg/5 Ml Vial IV-PUSH 08/13/24 12:28 Q4H PRN Blood Pressure Metoprolol Tartrate 50 mg 08/16/23 21:00 Metoprolol Tartrate 50 Mg Tablet NG-TUBE 08/15/24 20:59 BID KACI Quetiapine Fumarate 50 mg 08/13/23 14:00 08/16/23 14:29 Quetiapine Fumarate 50 Mg Tablet PO 08/12/24 13:59 50 mg BID.9A.2P KACI Administration Sodium Chloride 0 ml 08/01/23 10:32 08/11/23 11:57 Sodium Chloride 0.9 % 10 Ml Syringe IV-PUSH 07/31/24 10:31 40 ml PRN PRN Administration Flush Sodium Chloride 0 ml 08/02/23 09:41 08/15/23 11:38 Sodium Chloride 0.9 % 10 Ml Syringe IV-PUSH 08/01/24 09:40 40 ml PRN PRN Administration Flush A&P - Hospitalist Assessment/Plan (1) Acute hypoxic respiratory failure: (2) ESRD (end stage renal disease): (3) T2DM (type 2 diabetes mellitus): (4) Hyperlipemia: (5) HTN (hypertension): (6) PAD (peripheral artery disease): (7) Encephalopathy: (8) Anemia of renal disease: Plan Active Meds: Active Medications Generic Name Dose Route Start Last Admin Trade Name Freq PRN Reason Stop Dose Admin Acetaminophen 650 mg 08/01/23 14:13 08/05/23 22:20 Acetaminophen 325 Mg Tablet PO 07/31/24 14:12 650 mg Q6H PRN Administration Pain Albuterol 6 puff 08/01/23 12:00 08/06/23 05:05 Albuterol Hfa 200 Puff/18 Gm Inhaler VENT 07/31/24 11:59 6 puff Q6HR KACI Administration Chlorhexidine Gluconate 15 ml 08/01/23 09:00 08/06/23 08:42 Chlorhexidine Gluconate 0.12% 15 Ml Udc MUCOUS MEM 07/31/24 08:59 15 ml BID KACI Administration Dextrose 0 gm 08/01/23 08:05 Dextrose 50% In Water 25 Gm/50 Ml Syringe IV-PUSH 07/31/24 08:04 PRN PRN Hypoglycemia Docusate Sodium 100 mg 08/04/23 09:00 08/06/23 08:42 Docusate Liquid 100 Mg/10 Ml Udc PO 08/03/24 08:59 100 mg BID KACI Administration Fentanyl Citrate 50 mcg 08/02/23 09:44 08/03/23 21:01 Fentanyl/Pf 100 Mcg/2 Ml Vial IV-PUSH 50 mcg Q2H PRN Administration Pain Scale 4 - 7 Glucose 0 gm 08/01/23 08:05 Dextrose 40% Gel 15 Gm Tube PO 07/31/24 08:04 PRN PRN Hypoglycemia Heparin Sodium (Porcine) 2,000 unit 08/01/23 10:32 08/04/23 18:04 Heparin 10,000 Unit/10 Ml Vial IV 07/31/24 10:31 2,000 unit PRN PRN Administration Dialysis Heparin Sodium (Porcine) 500 unit 08/01/23 10:32 08/04/23 18:05 Heparin 10,000 Unit/10 Ml Vial IV 07/31/24 10:31 500 unit PRN PRN Administration Dialysis Heparin Sodium (Porcine) 2,000 unit 08/02/23 09:41 08/02/23 22:59 Heparin 10,000 Unit/10 Ml Vial IV 08/01/24 09:40 2,000 unit PRN PRN Administration Dialysis Heparin Sodium (Porcine) 5,000 unit 08/02/23 14:00 08/06/23 06:28 Heparin 5,000 Unit/Ml Vial SUBCUT 08/01/24 13:59 5,000 unit Q8HR KACI Administration Sodium Chloride 1,000 mls @ 0 mls/hr 08/01/23 10:32 08/04/23 18:05 0.9% Sodium Chloride 1,000 Ml MISCELLANE 07/31/24 10:31 Infused .Q0M PRN Infusion Dialysis As Directed Meropenem 0.5 gm in 100 mls @ 33.3 mls/hr 08/01/23 14:00 08/05/23 17:17 Merrem IV 08/07/23 17:01 Infused Q24H KACI Infusion Sodium Chloride 1,000 mls @ 0 mls/hr 08/02/23 09:41 08/02/23 23:01 0.9% Sodium Chloride 1,000 Ml MISCELLANE 08/01/24 09:40 Infused .Q0M PRN Infusion Dialysis As Directed Fentanyl 1,000 mcg in 100 mls @ 2.5 mls/hr 08/03/23 22:30 08/06/23 06:29 Fentanyl 1,000 Mcg/100 Ml D5w IV Not Given .Q24H KACI Protocol 25 MCG/HR Dexmedetomidine HCl 400 mcg/ 100 mls @ 4.84 mls/hr 08/05/23 10:15 08/06/23 07:43 Dextrose IV 08/04/24 10:14 1.5 mcg/kg/hr .[id number] KACI 36.3 mls/hr Administration Protocol 0.2 MCG/KG/HR Midazolam HCl 100 mg in 100 mls @ 1 mls/hr 08/05/23 23:00 08/05/23 23:30 Versed IV 02/01/24 22:59 3 mg/hr .Q24H AKCI 3 mls/hr Titration Protocol 1 MG/HR Magnesium Sulfate 4 gm in 100 mls @ 25 mls/hr 08/06/23 09:20 Magnesium Sulf 4 Gm-*Swfi* IV 08/06/23 13:19 ONCE ONE Insulin Aspart 0 units 08/01/23 12:00 08/06/23 06:28 Insulin Aspart 300 Units/3 Ml Insuln.Pen SUBCUT 07/31/24 11:59 2 units Q6HR KACI Administration Protocol Magnesium Hydroxide 30 ml 08/03/23 22:14 Magnesium Hydroxide Susp 30 Ml Udc PO 08/02/24 22:13 DAILY PRN Constipation Midazolam HCl 4 mg 08/05/23 11:12 08/05/23 22:41 Midazolam/Pf 2 Mg/2 Ml Vial IV-PUSH 02/01/24 11:11 4 mg Q3H PRN Administration Agitation Pantoprazole Sodium 40 mg 08/01/23 09:00 08/06/23 08:42 Pantoprazole 40 Mg Vial IV-PUSH 07/31/24 08:59 40 mg DAILY KACI Administration Sennosides 8.8 mg 08/04/23 09:00 08/06/23 08:42 Sennosides Syrup 8.8 Mg/5 Ml Udc PO 08/03/24 08:59 8.8 mg BID KACI Administration Sodium Chloride 10 ml 08/01/23 08:07 08/06/23 08:43 Sodium Chloride 0.9 % 10 Ml Vial.Pf INJECTION 07/31/24 08:06 10 ml PRN PRN Administration Dilution Sodium Chloride 10 ml 08/01/23 08:07 08/01/23 08:49 Sodium Chloride 0.9 % 10 Ml Syringe IV-PUSH 07/31/24 08:06 10 ml PRN PRN Administration Flush Sodium Chloride 0 ml 08/01/23 10:32 08/05/23 17:19 Sodium Chloride 0.9 % 10 Ml Syringe IV-PUSH 07/31/24 10:31 10 ml PRN PRN Administration Flush Sodium Chloride 0 ml 08/02/23 09:41 08/04/23 16:49 Sodium Chloride 0.9 % 10 Ml Syringe IV-PUSH 08/01/24 09:40 40 ml PRN PRN Administration Flush Please note, the above section about medications has been auto inserted into my document by the EHR somehow and cannot be removed. I do not know why it brings information dating in from 08/01 and 08/03. It is impossible for me to delete this. Therefore kindly dis-regard. Assessment: Acute hypoxic respiratory failure. 15 days of ventilator use. Influenza A. Present on admission. Significant problems with mucus plugging. Now improved after tracheostomy. Need for tracheostomy. Tracheostomy placed on 08/12/2023. Recent hospital stay with diabetic foot with kim osteomyelitis, transmetatarsal amputation, and MSSA osteomyelitis. Diabetes mellitus type 2. Hyperglycemic. A1C 8.1. Peripheral arterial disease with history of angioplasty left lower extremity in the past. Hypertension. Progression to maintenance requiring end-stage renal disease. Lingering problem is encephalopathy. This is now improving. ICU related psychosis, sleep-wake cycle disruption, sleep deprivation, and lingering delirium. Plan: Increase Metoprolol Tartrate to 50 mg every 12 hours today. Increase Lantus insulin to 25 units subcutaneously twice a day. Pulmonology has the patient on Seroquel. I defer to pulmonology/critical care on their decision making regarding medications to help regulate his sleep-wake cycle. Documented By: Geo Thomas DO 2044 Signed By: <Electronically signed by Geo Thomas DO> 08/16/232047 [facility] Work Phone: [phone]) 849-559103-23-2024 Progress note Author Rancho Kay [facility] August 16, 2023 11:11am Note Date/Time August 16, 2023 11: 07am [facility] [address] [place] [address] Nephrology Progress Note Signed Patient: Sudeep Diego JR MR#: [id number] : 1950 Acct:[id number] Age/Sex: 72 / M Adm Date: 4 Loc: 4C Room: [address] [place] [address] Type: ADM IN Attending Dr: Geo Thomas DO Copies to: ~ Date of Service: 08/16/2023 Subjective Subjective Narrative: Mr. Diego is a 72-year-old male with history of DM2, HTN, PAD and prostate cancer. Patient was recently started on hemodialysis during his admission in June 2023 for SONYA possibly related to ATN versus Staph aureus glomerulonephritis. 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 Creatinine has increased up to 5 mg/dL with no evidence of recovery. Patient was [facility] to [facility]. Patient presented to [facility] from his nursing facility with severe shortness of breath requiring intubation. Chest x-ray showed bilateral pulmonary infiltrate with possible pulmonary edema. Subsequently the patient was transferred to [facility] and he continues to be on vent. Respiratory swab showed evidence of influenza A. Patient is currently being treated for healthcare associated pneumonia with vancomycin and meropenem. Troponin was found to be elevated up to 1700. Hemoglobin was only 6.5 g/dL in setting of infection. Cardiology evaluated the patient and no intervention is planned at this point at the patient most likely has type II demand decreased cardiac perfusion. Nephrology was consulted for ESRD and dialysis. Interim History: Patient is being seen and examined at bedside. He is able to communicate by nodding his head. He is currently on tube feeding. He had a hemodialysis yesterday and tolerated well. Exam Physical Exam Vital Signs: Temp Pulse Resp BP Pulse Ox O2 Del Method O2 Flow Rate 98.3 F 84 26 H 185/86 H 96 Mechanical Ventilation 35 08/16/23 08:00 08/16/23 10:00 08/16/23 10:00 08/16/23 10:00 08/16/23 10:00 08/16/23 10:00 08/13/23 08:00 FiO2 30 08/16/23 10:00 Narrative: General: Appears comfortable and not in distress Heart: S1-S2, no rub Lung: Bilateral air entry, no wheezing or crackles Abdomen: Soft, positive bowel sounds Extremities: No edema, no cyanosis Head: Atraumatic, normocephalic Ear: No external ear redness or tenderness Eyes: No pallor or redness Neck: No JVD or visible mass Skin: No rashes , warm to touch [employer]: Somnolent but arousable. Musculoskeletal: No large joint swelling or tenderness Objective Intake and Output I&O: Intake & Output 08/13/23 08/14/23 08/15/23 08/16/23 23:59 23:59 23:59 23:59 Intake Total 1452 / 1452 1276 / 1276 1945 / 1945 376 / 376 Output Total 2739 / 2739 145 / 145 2656 / 2656 Balance -1287 / -1287 1131 / 1131 -711 / -711 366 / 366 Weight 88.3 kg 86.3 kg 85.6 kg 85.8 kg Meds and Allergies Meds: Active Medications Acetaminophen (Acetaminophen 325 Mg Tablet) 650 mg PO Q6H PRN PRN Reason: Pain Stop: 07/31/24 14:12 Last Admin: 08/07/23 16:44 Dose: 650 mg Acetaminophen (Acetaminophen 650 Mg/20.3 Ml Oral.Susp) 650 mg NG-TUBE Q6H PRN PRN Reason: Fever or Pain Stop: 08/12/24 13:59 Last Admin: 08/13/23 22:18 Dose: 650 mg Albuterol (Albuterol Hfa 200 Puff/18 Gm Inhaler) 6 puff VENT Q6HR [facility] Stop: 07/31/24 11:59 Last Admin: 08/16/23 05:44 Dose: 6 puff Amlodipine Besylate (Amlodipine 5 Mg Tablet) 5 mg OG-TUBE DAILY [facility] Stop: 08/09/24 08:59 Last Admin: 08/16/23 10:29 Dose: 5 mg Darbepoetin Abisai (Darbepoetin Abisai In Polysorbat 60 Mcg/Ml Vial) 60 mcg IV- PUSHQWEEK [facility]; Protocol Stop: 08/12/24 09:04 Last Admin: 08/13/23 11:24 Dose: 60 mcg Dextrose (Dextrose 50% In Water 25 Gm/50 Ml Syringe) 0 gm IV-PUSH PRN PRN PRN Reason: Hypoglycemia Stop: 07/31/24 08:04 Fentanyl Citrate (Fentanyl/Pf 100 Mcg/2 Ml Vial) 50 mcg IV-PUSH Q2H PRN PRN Reason: tracheostomy pain Last Admin: 08/15/23 04:43 Dose: 50 mcg Ferric Sodium Gluconate Complex (Sodium Ferric Gluconat/Sucrose 62.5 Mg/5 Ml Vial) 62.5 mg IV-PUSH We@0900 KACI Stop: 08/12/24 09:04 Last Admin: 08/13/23 11:24 Dose: 62.5 mg Glucose (Dextrose 40% Gel 15 Gm Tube) 0 gm PO PRN PRN PRN Reason: Hypoglycemia Stop: 07/31/24 08:04 Heparin Sodium (Porcine) (Heparin 5,000 Unit/Ml Vial) 5,000 unit SUBCUT Q8HR [facility] Stop: 08/01/24 13:59 Last Admin: 08/16/23 06:19 Dose: 5,000 unit Heparin Sodium (Porcine) (Heparin 10,000 Unit/10 Ml Vial) 4,100 unit IV PRN PRN PRN Reason: Dialysis Stop: 08/07/24 14:32 Last Admin: 08/15/23 11:38 Dose: 4,100 unit Heparin Sodium (Porcine) (Heparin 10,000 Unit/10 Ml Vial) 2,500 unit IV PRN PRN PRN Reason: Dialysis Stop: 08/01/24 09:40 Last Admin: 08/15/23 11:38 Dose: 2,500 unit Heparin Sodium (Porcine) (Heparin 10,000 Unit/10 Ml Vial) 1,500 unit IV PRN PRN PRN Reason: Dialysis Stop: 08/05/24 10:45 Last Admin: 08/15/23 11:38 Dose: 1,500 unit Hydralazine HCl (Hydralazine 20 Mg/Ml Vial) 10 mg IV-PUSH Q4H PRN PRN Reason: Hypertension Stop: 08/07/24 12:07 Last Admin: 08/15/23 04:42 Dose: 10 mg Sodium Chloride (0.9% Sodium Chloride 1,000 Ml) 1,000 mls @ 0 mls/hr MISCELLANE.Q0M PRN PRN Reason: Dialysis Stop: 07/31/24 10:31 Last Infusion: 08/13/23 11:29 Dose: Infused Sodium Chloride (0.9% Sodium Chloride 1,000 Ml) 1,000 mls @ 0 mls/hr MISCELLANE.Q0M PRN PRN Reason: Dialysis Stop: 08/01/24 09:40 Last Infusion: 08/15/23 11:39 Dose: Infused Dexmedetomidine HCl 400 mcg/ (Dextrose) 100 mls @ 4.84 mls/hr IV .[id number] [facility]; Protocol Stop: 08/04/24 10:14 Last Admin: 08/15/23 17:55 Dose: Not Given Meropenem (Merrem) 0.5 gm in 100 mls @ 33.333 mls/hr IV Q24H [facility] Last Admin: 08/15/23 16:40 Dose: 33.33 mls/hr Micafungin Sodium 100 mg/ (Sodium Chloride) 105 mls @ 105 mls/hr IV Q24H [facility] Stop: 08/21/23 13:59 Last Infusion: 08/15/23 15:40 Dose: Infused Insulin Aspart (Insulin Aspart 300 Units/3 Ml Insuln.Pen) 0 units SUBCUT Q6HR [facility]; Protocol Stop: 07/31/24 11:59 Last Admin: 08/16/23 06:19 Dose: 4 units Insulin Glargine (Insulin Glargine 300 Units/3 Ml Insuln.Pen) 20 units SUBCUT BID [facility] Stop: 08/14/24 20:59 Last Admin: 08/16/23 10:29 Dose: 20 units Magnesium Hydroxide (Magnesium Hydroxide Susp 30 Ml Udc) 30 ml PO DAILY PRN PRN Reason: Constipation Stop: 08/02/24 22:13 Metoprolol Tartrate (Metoprolol Tartrate 5 Mg/5 Ml Vial) 5 mg IV-PUSH Q4H PRN PRN Reason: Blood Pressure Stop: 08/13/24 12:28 Metoprolol Tartrate (Metoprolol Tartrate 25 Mg Tablet) 25 mg NG-TUBE Q8H [facility] Stop: 08/14/24 14:59 Last Admin: 08/16/23 06:19 Dose: 25 mg Midazolam HCl (Midazolam/Pf 2 Mg/2 Ml Vial) 4 mg IV-PUSH ONCE PRN PRN Reason: sedation Last Admin: 08/08/23 13:00 Dose: 4 mg Pantoprazole Sodium (Pantoprazole 40 Mg Vial) 40 mg IV-PUSH DAILY [facility] Stop: 07/31/24 08:59 Last Admin: 08/16/23 10:29 Dose: 40 mg Quetiapine Fumarate (Quetiapine Fumarate 50 Mg Tablet) 50 mg PO BID.9A.2P KACI Stop: 08/12/24 13:59 Last Admin: 08/16/23 10:29 Dose: 50 mg Sodium Chloride (Sodium Chloride 0.9 % 10 Ml Vial.Pf) 10 ml INJECTION PRN PRN PRN Reason: Dilution Stop: 07/31/24 08:06 Last Admin: 08/15/23 09:29 Dose: 10 ml Sodium Chloride (Sodium Chloride 0.9 % 10 Ml Syringe) 10 ml IV-PUSH PRN PRN PRN Reason: Flush Stop: 07/31/24 08:06 Last Admin: 08/15/23 09:28 Dose: 10 ml Sodium Chloride (Sodium Chloride 0.9 % 10 Ml Syringe) 0 ml IV-PUSH PRN PRN PRN Reason: Flush Stop: 07/31/24 10:31 Last Admin: 08/11/23 11:57 Dose: 40 ml Sodium Chloride (Sodium Chloride 0.9 % 10 Ml Syringe) 0 ml IV-PUSH PRN PRN PRN Reason: Flush Stop: 08/01/24 09:40 Last Admin: 08/15/23 11:38 Dose: 40 ml Allergies cefepime Allergy (Unknown, Verified 07/10/23 18:46) Hives lisinopril Allergy (Unknown, Verified 07/10/23 18:46) Swelling of Lip/Tongue/Throat, SWELLING metformin Allergy (Unknown, Verified 07/10/23 18:46) Back Pain, KIDNEY PAIN Results - Nephrology Labs 08/16/23 03:40 08/16/23 06:15 Labs: 08/16/23 03:40 BUN 44 H Creatinine 2.88 H Radiology Impressions Impressions - last 24 hours: Any impression(s) listed above is documentation that was entered by the reading physician into a diagnostic report(s) for Sudeep Diego JR. I have reviewed the report(s) and am incorporating any findings in the treatment plan of this patient where applicable. A&P - Nephrology Assessment/Plan (1) SONYA (acute kidney injury): Assessment/Problem Details: Patient developed SONYA during his previous admission on June 2023 with left foot infection and staph bacteremia with no evidence of recovery currently on dialysis. Baseline creatinine was 1.1 mg/dL. Patient gets dialysis on MWF schedule (2) Acute pulmonary edema: Assessment/Problem Details: Patient presents with shortness of breath and respiratory failure. Chest x-ray showed pulmonary congestion with evidence of bilateral infiltrate. 2D echo showed dilated IVC with abnormal collapsibility suggestive of volume overload (3) Acute hypoxic respiratory failure: Assessment/Problem Details: Patient has bilateral infiltrate on chest x-ray, respiratory swab was positive for influenza A. Patient is currently getting treatment for healthcare associated pneumonia as well since he has recent hospitalization (4) T2DM (type 2 diabetes mellitus): Assessment/Problem Details: He has insulin-dependent type 2 diabetes mellitus. He was taking insulin glargine at home. (5) Elevated troponin level not due to acute coronary syndrome: Assessment/Problem Details: He has a type II SD likely due to demand ischemia in setting of CHF and sepsis. (6) Anemia of renal disease: Assessment/Problem Details: He has anemia in the setting of SONYA with superimposed infection. Patient has elevated ferritin and low iron saturation in setting of infection. Plan * No need for dialysis today. Next dialysis will be on Friday. * He is currently on micafungin and meropenem. Continue antibiotics for sepsis.. Pharmacy to dose medication based on ESRD status. * ANCA, and anti-GBM antibodies are negative. SUSANA positive for SLATE SPLITTER antibodies. Not sure about the clinical significant of these. Might have to do kidney biopsy when the patient is more stable. * Increase the dose of the amlodipine to 10 mg daily as blood pressure has been running high. * Continue current dose of the metoprolol. * Monitor H&H and transfuse as needed to keep the hemoglobin greater than 7.5 g/dL. * Vent management as directed by pulmonary service * Check renal function daily and monitor input output. * Documented By: Rancho Kay MD 08/16/23 1104 Signed By: <Electronically signed by Rancho Kay MD> 08/16/23 1111 [facility] Work Phone: [phone]) 738-993803-23-2024 Progress note Author Morales Mckeon [facility] August 16, 2023 10:00am Note Date/Time August 16, 2023 9:5 0am [facility] [address] [place] [address] Pulmonology Progress Note Signed Patient: Sudeep Diego JR MR#: [id number] : 1950 Acct:[id number] Age/Sex: 72 / M Adm Date: 4 Loc: Room: [address] [place] [address] Type: ADM IN Attending Dr: Geo Thomas DO Copies to: ~ Date of Service: 08/16/2023 Subjective Subjective Narrative: No acute events overnight. Awake, following simple commands. Tolerating PSV thismorning. Tracheostomy tube in place. No significant amount of purulent secretions coming out from tracheotomy. No vasopressors. WBC and platelet counttrending upward. Sputum culture growing yeast/urine culture rajiv glabrata Laboratory data and images reviewed Exam Physical Exam Vital Signs: Temp Pulse Resp BP Pulse Ox O2 Del Method O2 Flow Rate 97.6 F 85 24 165/78 H 94 L Mechanical Ventilation 35 08/16/23 04:00 08/16/23 07:00 08/16/23 07:00 08/16/23 07:00 08/16/23 07:00 08/16/23 07:00 08/13/23 08:00 FiO2 30 08/16/23 07:00 Narrative: Constitutional: Awake, on mechanical ventilation, on Precedex HEENT: EOMi, PERRL+, oral mucosa moist Cardiovascular: Regular rate and rhythm, tachycardiac Respiratory: Coarse breath sounds in both lungs. Chest is symmetric GI: soft abdomen, hypoactive bowel sounds Neuro: Opening eyes, following simple commands, slightly agitated, no gross motor deficits Extremities: left transmetatarsal amputee, no clear signs of infection Objective Intake and Output I&O - Last 24 Hours: Intake & Output 08/15/23 08/16/23 08/16/23 23:59 07:59 15:59 Intake Total 420 / 1945 376 / 376 Output Total 6 Balance 395 / -711 366 / 366 Weight 85.8 kg Labs 08/16/23 03:40 08/16/23 06:15 Microbiology Micro: Microbiology 3 08/13/23 14:18 Aerobic Culture - Final Sputum - Endotrachael Light Normal Respiratory Suyapa 2 Days Gram Stain - Final 08/11/23 09:26 Blood Culture - Preliminary Blood - Left Antecubital No Growth 4 Days 08/11/23 09:25 Blood Culture - Preliminary Blood - Left Hand No Growth 4 Days 08/12/23 09:50 Aerobic Culture - Preliminary Sputum - Endotrachael Rajiv albicans Fungal like structure Gram Stain - Final Assessment/Plan Assessment/Plan (1) Acute hypoxic respiratory failure: (2) Acute pulmonary edema: (3) ESRD (end stage renal disease): (4) T2DM (type 2 diabetes mellitus): (5) PAD (peripheral artery disease): Plan Neurochecks per ICU Avoid sedatives Precedex for sedation as needed Fentanyl as needed for analgesia Maintain mean arterial pressure higher than 65 PSV at day time back to AC/VC at [facility] On Meropenem Started on Micafungin 08/14 ID consult Continue supportive care. Documented By: Morales Mckeon MD [id number] Signed By: <Electronically signed by Morales Mckeon MD> 08/16/23 1000 [facility] Work Phone: 1([phone]) 208-721403-22-2024 Progress note Author Pravin Rivers [facility] August 15, 2023 3:47pm Note Date/Time August 15, 2023 3:3 6pm [facility] [address] [place] [address] Neurology Progress Note Signed Patient: Sudeep Diego JR MR#: [id number] : 1950 Acct:[id number] Age/Sex: 72 / M Adm Date: 4 Loc: Room: [address] [place] [address] Type: ADM IN Attending Dr: Geo Thomas DO Copies to: ~ Date of Service: 08/15/2023 Exam Physical Exam Vital Signs: Temp Pulse Resp BP Pulse Ox O2 Del Method O2 Flow Rate 97.6 F 92 24 108/63 95 Trach Collar 35 08/15/23 14:50 08/15/23 14:50 08/15/23 14:50 08/15/23 14:50 08/15/23 14:50 08/15/23 14:50 08/13/23 08:00 FiO2 30 08/15/23 14:50 Objective Vital Signs Vital Signs: Vital Signs - 24 hr 08/14/23 16:00 08/14/23 16:00 08/14/23 16:32 Temperature Pulse Rate 100 Pulse Rate [Monitor] 96 Respiratory Rate 22 26 H Blood Pressure [Left Arm] 145/69 H 02 Sat by Pulse Oximetry 98 Oxygen Delivery Method Mechanical Ventilation Fraction of Inspired Oxygen 50 50 50 08/14/23 17:00 08/14/23 17:00 08/14/23 18:00 Temperature 98.3 F Pulse Rate Pulse Rate [Monitor] 98 Respiratory Rate 23 Blood Pressure [Left Arm] 145/69 H 02 Sat by Pulse Oximetry 99 Oxygen Delivery Method Mechanical Ventilation Fraction of Inspired Oxygen 50 50 50 08/14/23 18:00 08/14/23 18:56 08/14/23 20:00 Temperature 97.7 F Pulse Rate Pulse Rate [Monitor] 98 97 Respiratory Rate 25 H 26 H Blood Pressure [Left Arm] 157/75 H 143/67 H 02 Sat by Pulse Oximetry 99 99 Oxygen Delivery Method Mechanical Ventilation Mechanical Ventilation Fraction of Inspired Oxygen 50 50 50 08/14/23 20:00 08/14/23 20:00 08/14/23 20:24 Temperature Pulse Rate 99 Pulse Rate [Monitor] Respiratory Rate 27 H Blood Pressure [Left Arm] 02 Sat by Pulse Oximetry Oxygen Delivery Method Mechanical Ventilation Fraction of Inspired Oxygen 50 50 50 08/14/23 21:00 08/14/23 21:00 08/14/23 22:00 Temperature Pulse Rate Pulse Rate [Monitor] 96 92 Respiratory Rate 20 24 Blood Pressure [Left Arm] 147/72 H 162/77 H 02 Sat by Pulse Oximetry 98 97 Oxygen Delivery Method Mechanical Ventilation Mechanical Ventilation Fraction of Inspired Oxygen 50 50 50 08/14/23 22:00 08/14/23 23:00 08/14/23 23:00 Temperature Pulse Rate Pulse Rate [Monitor] 92 Respiratory Rate 24 Blood Pressure [Left Arm] 156/76 H 02 Sat by Pulse Oximetry 98 Oxygen Delivery Method Mechanical Ventilation Fraction of Inspired Oxygen 50 50 50 08/15/23 00:00 08/15/23 00:00 08/15/23 00:40 Temperature 97.7 F Pulse Rate 92 Pulse Rate [Monitor] 90 Respiratory Rate 14 19 Blood Pressure [Left Arm] 163/78 H 02 Sat by Pulse Oximetry 100 Oxygen Delivery Method Mechanical Ventilation Fraction of Inspired Oxygen 50 50 50 08/15/23 01:00 08/15/23 01:00 08/15/23 02:00 Temperature Pulse Rate Pulse Rate [Monitor] 92 Respiratory Rate 20 Blood Pressure [Left Arm] 162/76 H 02 Sat by Pulse Oximetry 100 Oxygen Delivery Method Mechanical Ventilation Fraction of Inspired Oxygen 50 50 50 08/15/23 02:00 08/15/23 03:00 08/15/23 03:00 Temperature Pulse Rate Pulse Rate [Monitor] 95 94 Respiratory Rate 22 22 Blood Pressure [Left Arm] 188/86 H 170/74 H 02 Sat by Pulse Oximetry 99 98 Oxygen Delivery Method Mechanical Ventilation Mechanical Ventilation Fraction of Inspired Oxygen 50 50 50 08/15/23 04:00 08/15/23 04:00 08/15/23 04:31 Temperature 97.6 F Pulse Rate 91 Pulse Rate [Monitor] 99 Respiratory Rate 26 H 19 Blood Pressure [Left Arm] 183/88 H 02 Sat by Pulse Oximetry 99 Oxygen Delivery Method Mechanical Ventilation Fraction of Inspired Oxygen 50 50 40 08/15/23 05:00 08/15/23 05:00 08/15/23 06:00 Temperature Pulse Rate Pulse Rate [Monitor] 94 Respiratory Rate 28 H Blood Pressure [Left Arm] 148/68 H 02 Sat by Pulse Oximetry 98 Oxygen Delivery Method Mechanical Ventilation Fraction of Inspired Oxygen 50 50 50 08/15/23 06:00 08/15/23 07:00 08/15/23 07:00 Temperature Pulse Rate Pulse Rate [Monitor] 96 96 Respiratory Rate 24 27 H Blood Pressure [Left Arm] 160/74 H 172/82 H 02 Sat by Pulse Oximetry 98 98 Oxygen Delivery Method Mechanical Ventilation Mechanical Ventilation Fraction of Inspired Oxygen 50 50 50 08/15/23 08:00 08/15/23 08:00 08/15/23 08:00 Temperature 97.7 F Pulse Rate Pulse Rate [Monitor] 96 Respiratory Rate 24 Blood Pressure [Left Arm] 184/85 H 02 Sat by Pulse Oximetry 98 Oxygen Delivery Method Mechanical Ventilation Mechanical Ventilation Fraction of Inspired Oxygen 50 50 50 08/15/23 08:01 08/15/23 09:00 08/15/23 09:00 Temperature Pulse Rate 97 Pulse Rate [Monitor] 98 Respiratory Rate 17 35 H Blood Pressure [Left Arm] 174/81 H 02 Sat by Pulse Oximetry 98 Oxygen Delivery Method Mechanical Ventilation Fraction of Inspired Oxygen 40 50 50 08/15/23 10:00 08/15/23 10:00 08/15/23 10:15 Temperature Pulse Rate 81 Pulse Rate [Monitor] 86 Respiratory Rate 23 21 Blood Pressure [Left Arm] 102/55 L 02 Sat by Pulse Oximetry 98 Oxygen Delivery Method Mechanical Ventilation Fraction of Inspired Oxygen 50 50 30 08/15/23 11:00 08/15/23 11:10 08/15/23 11:15 Temperature 97.5 F L Pulse Rate Pulse Rate [Monitor] 88 85 82 Respiratory Rate 34 H 24 Blood Pressure [Left Arm] 105/59 L 108/59 L 115/62 02 Sat by Pulse Oximetry 98 95 Oxygen Delivery Method Mechanical Ventilation Trach Collar Fraction of Inspired Oxygen 30 30 08/15/23 11:30 08/15/23 12:00 08/15/23 12:30 Temperature Pulse Rate 84 Pulse Rate [Monitor] 82 83 Respiratory Rate 26 H Blood Pressure [Left Arm] 122/66 135/66 02 Sat by Pulse Oximetry Oxygen Delivery Method Fraction of Inspired Oxygen 30 08/15/23 12:30 08/15/23 13:01 08/15/23 13:30 Temperature Pulse Rate Pulse Rate [Monitor] 81 85 85 Respiratory Rate Blood Pressure [Left Arm] 120/64 110/60 104/59 L 02 Sat by Pulse Oximetry Oxygen Delivery Method Fraction of Inspired Oxygen 08/15/23 13:45 08/15/23 14:00 08/15/23 14:30 Temperature Pulse Rate Pulse Rate [Monitor] 90 87 87 Respiratory Rate Blood Pressure [Left Arm] 87/54 L 91/55 L 98/58 L 02 Sat by Pulse Oximetry Oxygen Delivery Method Fraction of Inspired Oxygen 08/15/23 14:40 08/15/23 14:50 Temperature 97.6 F Pulse Rate Pulse Rate [Monitor] 86 92 Respiratory Rate 24 Blood Pressure [Left Arm] 101/60 108/63 02 Sat by Pulse Oximetry 95 Oxygen Delivery Method Trach Collar Fraction of Inspired Oxygen 30 Labs 08/15/23 04:50 08/15/23 04:50 Therapy Recommendations Therapy Recommendations: OT Recommendations OT Recommended Discharge LTACH Location PT Recommendations DC Physical Therapy Due To: Unable to Participate,Not Medically Appropriate, Unable to Tolerate Therap Assessment/Plan (1) Encephalopathy: Assessment/Problem Details: CONSULT REASON: Encephalopathy SUBJECTIVE: Tracheostomy a few days ago. Mentation has been much better, though he is stilldealing with sleep cycle disturbance, lack of sleep, and seems to remain delirious. Could not obtain review of systems. EXAMINATION: Tracheostomy. Spontaneously awake. Makes good eye contact. Nods yes and shakeshead no. I could not get him to attempt to verbalize. Following one-step commands without difficulty. Gaze appears conjugate. Pupils appear equal. Allarms and legs are capable of movement. Does seem diffusely weak. DATA REVIEW: -Head CT August 06, 2023 is without acute findings. -MRI brain personally reviewed, radiology report pending. I see a 1 cm right parafalcine lesion that is a meningioma -Routine EEG 08/07/23 normal -Routine EEG August 12, 2023 also unremarkable ASSESSMENT: Encephalopathy gradually improving, certainly doing much better since being extubated. Was thought to be metabolic or related to infection - still with azotemia and persistent but gradually improving leukocytosis. Head CT was without any evidence of acute or concerning findings. Routine EEG looked normal. MRI is without any explanatory findings. PLAN: No other recommendations at this time Plan: Plan Documented By: Pravin Rivers DO 08/15/23 1534 Signed By: <Electronically signed by Pravin Rivers DO> 08/15/23 1542 [facility] Work Phone: 1(678) 984-431103-22-2024 Progress note Author Rancho Kay [facility] August 15, 2023 12:32pm Note Date/Time August 15, 2023 11: 40am [facility] [address] [place] [address] Nephrology Progress Note Signed Patient: Sudeep Diego JR MR#: [id number] : 1950 Acct:[id number] Age/Sex: 72 / M Adm Date: 4 Loc: Room: 9L5373-8 Type: ADM IN Attending Dr: Geo Thomas DO Copies to: ~ Date of Service: 08/15/2023 Subjective Subjective Narrative: Mr. Diego is a 72-year-old male with history of DM2, HTN, PAD and prostate cancer. Patient was recently started on hemodialysis during his admission in June 2023 for SONYA possibly related to ATN versus Staph aureus glomerulonephritis. 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 Creatinine has increased up to 5 mg/dL with no evidence of recovery. [facility]. Patient presented to [facility] from his nursing facility with severe shortness of breath requiring intubation. Chest x-ray showed bilateral pulmonary infiltrate with possible pulmonary edema. Subsequently the patient was transferred to [facility] and he continues to be on vent. Respiratory swab showed evidence of influenza A. Patient is currently being treated for healthcare associated pneumonia with vancomycin and meropenem. Troponin was found to be elevated up to 1700. Hemoglobin was only 6.5 g/dL in setting of infection. Cardiology evaluated the patient and no intervention is planned at this point at the patient most likely has type II demand decreased cardiac perfusion. Nephrology was consulted for ESRD and dialysis. Interim History: Patient is being seen and examined at bedside and case was discussed with the bedside RN. No acute event reported by the bedside RN. Patient was started on metoprolol by the hospitalist team due to the tachycardia and hypertension. He is currently on tube feeding. Exam Physical Exam Vital Signs: Temp Pulse Resp BP Pulse Ox O2 Del Method O2 Flow Rate 97.6 F 81 21 160/74 H 98 Mechanical Ventilation 35 08/15/23 04:00 08/15/23 10:15 08/15/23 10:15 08/15/23 06:00 08/15/23 06:00 08/15/23 06:00 08/13/23 08:00 FiO2 30 08/15/23 10:15 Narrative: General: Appears comfortable and not in distress Heart: S1-S2, no rub Lung: Bilateral air entry, no wheezing or crackles Abdomen: Soft, positive bowel sounds Extremities: No edema, no cyanosis Head: Atraumatic, normocephalic Ear: No external ear redness or tenderness Eyes: No pallor or redness Neck: No JVD or visible mass Skin: No rashes , warm to touch [employer]: Somnolent but arousable. Musculoskeletal: No large joint swelling or tenderness Objective Intake and Output I&O: Intake & Output 08/12/23 08/13/23 08/14/23 08/15/23 23:59 23:59 23:59 23:59 Intake Total 400 / 400 1452 / 1452 1276 / 1276 400 / 400 Output Total 38 / 38 2739 / 2739 145 / 145 30 / 30 Balance 362 / 362 -1287 / -1287 1131 / 1131 370 / 370 Weight 89.2 kg 88.3 kg 86.3 kg 85.6 kg Meds and Allergies Meds: Active Medications Acetaminophen (Acetaminophen 325 Mg Tablet) 650 mg PO Q6H PRN PRN Reason: Pain Stop: 07/31/24 14:12 Last Admin: 08/07/23 16:44 Dose: 650 mg Acetaminophen (Acetaminophen 650 Mg/20.3 Ml Oral.Susp) 650 mg NG-TUBE Q6H PRN PRN Reason: Fever or Pain Stop: 08/12/24 13:59 Last Admin: 08/13/23 22:18 Dose: 650 mg Albuterol (Albuterol Hfa 200 Puff/18 Gm Inhaler) 6 puff VENT Q6HR [facility] Stop: 07/31/24 11:59 Last Admin: 08/15/23 05:13 Dose: 6 puff Amlodipine Besylate (Amlodipine 5 Mg Tablet) 5 mg OG-TUBE DAILY [facility] Stop: 08/09/24 08:59 Last Admin: 08/15/23 09:25 Dose: 5 mg Darbepoetin Abisai (Darbepoetin Abisai In Polysorbat 60 Mcg/Ml Vial) 60 mcg IV- PUSHQWEEK [facility]; Protocol Stop: 08/12/24 09:04 Last Admin: 08/13/23 11:24 Dose: 60 mcg Dextrose (Dextrose 50% In Water 25 Gm/50 Ml Syringe) 0 gm IV-PUSH PRN PRN PRN Reason: Hypoglycemia Stop: 07/31/24 08:04 Fentanyl Citrate (Fentanyl/Pf 100 Mcg/2 Ml Vial) 50 mcg IV-PUSH Q2H PRN PRN Reason: tracheostomy pain Last Admin: 08/15/23 04:43 Dose: 50 mcg Ferric Sodium Gluconate Complex (Sodium Ferric Gluconat/Sucrose 62.5 Mg/5 Ml Vial) 62.5 mg IV-PUSH We@0900 [facility] Stop: 08/12/24 09:04 Last Admin: 08/13/23 11:24 Dose: 62.5 mg Glucose (Dextrose 40% Gel 15 Gm Tube) 0 gm PO PRN PRN PRN Reason: Hypoglycemia Stop: 07/31/24 08:04 Heparin Sodium (Porcine) (Heparin 5,000 Unit/Ml Vial) 5,000 unit SUBCUT Q8HR [facility] Stop: 08/01/24 13:59 Last Admin: 08/15/23 06:34 Dose: 5,000 unit Heparin Sodium (Porcine) (Heparin 10,000 Unit/10 Ml Vial) 4,100 unit IV PRN PRN PRN Reason: Dialysis Stop: 08/07/24 14:32 Last Admin: 08/13/23 11:24 Dose: 4,100 unit Heparin Sodium (Porcine) (Heparin 10,000 Unit/10 Ml Vial) 2,500 unit IV PRN PRN PRN Reason: Dialysis Stop: 08/01/24 09:40 Heparin Sodium (Porcine) (Heparin 10,000 Unit/10 Ml Vial) 1,500 unit IV PRN PRN PRN Reason: Dialysis Stop: 08/05/24 10:45 Hydralazine HCl (Hydralazine 20 Mg/Ml Vial) 10 mg IV-PUSH Q4H PRN PRN Reason: Hypertension Stop: 08/07/24 12:07 Last Admin: 08/15/23 04:42 Dose: 10 mg Sodium Chloride (0.9% Sodium Chloride 1,000 Ml) 1,000 mls @ 0 mls/hr MISCELLANE.Q0M PRN PRN Reason: Dialysis Stop: 07/31/24 10:31 Last Infusion: 08/13/23 11:29 Dose: Infused Sodium Chloride (0.9% Sodium Chloride 1,000 Ml) 1,000 mls @ 0 mls/hr MISCELLANE.Q0M PRN PRN Reason: Dialysis Stop: 08/01/24 09:40 Last Infusion: 08/08/23 14:31 Dose: Infused Dexmedetomidine HCl 400 mcg/ (Dextrose) 100 mls @ 4.84 mls/hr IV .[id number] [facility]; Protocol Stop: 08/04/24 10:14 Last Admin: 08/14/23 20:56 Dose: Not Given Meropenem (Merrem) 0.5 gm in 100 mls @ 33.333 mls/hr IV Q24H [facility] Last Admin: 08/14/23 17:13 Dose: 33.33 mls/hr Insulin Aspart (Insulin Aspart 300 Units/3 Ml Insuln.Pen) 0 units SUBCUT Q6HR [facility]; Protocol Stop: 07/31/24 11:59 Last Admin: 08/15/23 06:33 Dose: 3 units Insulin Glargine (Insulin Glargine 300 Units/3 Ml Insuln.Pen) 20 units SUBCUT BID [facility] Stop: 08/14/24 20:59 Magnesium Hydroxide (Magnesium Hydroxide Susp 30 Ml Udc) 30 ml PO DAILY PRN PRN Reason: Constipation Stop: 08/02/24 22:13 Metoprolol Tartrate (Metoprolol Tartrate 5 Mg/5 Ml Vial) 5 mg IV-PUSH Q4H PRN PRN Reason: Blood Pressure Stop: 08/13/24 12:28 Metoprolol Tartrate (Metoprolol Tartrate 25 Mg Tablet) 25 mg NG-TUBE Q8H [facility] Stop: 08/14/24 14:59 Midazolam HCl (Midazolam/Pf 2 Mg/2 Ml Vial) 4 mg IV-PUSH ONCE PRN PRN Reason: sedation Last Admin: 08/08/23 13:00 Dose: 4 mg Pantoprazole Sodium (Pantoprazole 40 Mg Vial) 40 mg IV-PUSH DAILY [facility] Stop: 07/31/24 08:59 Last Admin: 08/15/23 09:28 Dose: 40 mg Quetiapine Fumarate (Quetiapine Fumarate 50 Mg Tablet) 50 mg PO BID.9A.2P [facility] Stop: 08/12/24 13:59 Last Admin: 08/15/23 09:25 Dose: 50 mg Sodium Chloride (Sodium Chloride 0.9 % 10 Ml Vial.Pf) 10 ml INJECTION PRN PRN PRN Reason: Dilution Stop: 07/31/24 08:06 Last Admin: 08/15/23 09:29 Dose: 10 ml Sodium Chloride (Sodium Chloride 0.9 % 10 Ml Syringe) 10 ml IV-PUSH PRN PRN PRN Reason: Flush Stop: 07/31/24 08:06 Last Admin: 08/15/23 09:28 Dose: 10 ml Sodium Chloride (Sodium Chloride 0.9 % 10 Ml Syringe) 0 ml IV-PUSH PRN PRN PRN Reason: Flush Stop: 07/31/24 10:31 Last Admin: 08/11/23 11:57 Dose: 40 ml Sodium Chloride (Sodium Chloride 0.9 % 10 Ml Syringe) 0 ml IV-PUSH PRN PRN PRN Reason: Flush Stop: 08/01/24 09:40 Last Admin: 08/13/23 11:23 Dose: 40 ml Allergies cefepime Allergy (Unknown, Verified 07/10/23 18:46) Hives lisinopril Allergy (Unknown, Verified 07/10/23 18:46) Swelling of Lip/Tongue/Throat, SWELLING metformin Allergy (Unknown, Verified 07/10/23 18:46) Back Pain, KIDNEY PAIN Results - Nephrology Labs 08/15/23 04:50 08/15/23 04:50 Labs: 08/15/23 04:50 BUN 52 H Creatinine 3.22 H Radiology Impressions Impressions - last 24 hours: Any impression(s) listed above is documentation that was entered by the reading physician into a diagnostic report(s) for Sudeep Diego JR. I have reviewed the report(s) and am incorporating any findings in the treatment plan of this patient where applicable. A&P - Nephrology Assessment/Plan (1) SONYA (acute kidney injury): Assessment/Problem Details: Patient developed SONYA during his previous admission on June 2023 with left foot infection and staph bacteremia with no evidence of recovery currently on dialysis. Baseline creatinine was 1.1 mg/dL. Patient gets dialysis on MWF schedule (2) Acute pulmonary edema: Assessment/Problem Details: Patient presents with shortness of breath and respiratory failure. Chest x-ray showed pulmonary congestion with evidence of bilateral infiltrate. 2D echo showed dilated IVC with abnormal collapsibility suggestive of volume overload (3) Acute hypoxic respiratory failure: Assessment/Problem Details: Patient has bilateral infiltrate on chest x-ray, respiratory swab was positive for influenza A. Patient is currently getting treatment for healthcare associated pneumonia as well since he has recent hospitalization (4) T2DM (type 2 diabetes mellitus): Assessment/Problem Details: He has insulin-dependent type 2 diabetes mellitus. He was taking insulin glargine at home. (5) Elevated troponin level not due to acute coronary syndrome: Assessment/Problem Details: He has a type II SD likely due to demand ischemia in setting of CHF and sepsis. (6) Anemia of renal disease: Assessment/Problem Details: He has anemia in the setting of SONYA with superimposed infection. Patient has elevated ferritin and low iron saturation in setting of infection. Plan * Hemodialysis today as ordered. * Continue empiric antibiotics for sepsis.. Pharmacy to dose medication based on ESRD status. * ANCA, and anti-GBM antibodies are negative. SUSANA positive for SLATE SPLITTER antibodies. Not sure about the clinical significant of these. Might have to do kidney biopsy when the patient is more stable. * Continue current dose of the amlodipine and agreed to increase the dose of the metoprolol. * Monitor H&H and transfuse as needed to keep the hemoglobin greater than 7.5 g/dL. * Vent management as directed by pulmonary service * Check renal function daily and monitor input output. * Also discussed with the family at the bedside. Answered all the questions Documented By: Rancho Kay MD 08/15/23 1137 Signed By: <Electronically signed by Rancho Kay MD> 08/15/23 1232 [facility] Work Phone: 1(990) 633-426403-22-2024 Progress note Author Morales Mckeon [facility] August 15, 2023 11:57am Note Date/Time August 15, 2023 10: 43am [facility] [address] [place] [address] Pulmonology Progress Note Signed with Addenda Patient: Sudeep Diego JR MR#: [id number] : 1950 Acct:[id number] Age/Sex: 72 / M Adm Date: 4 Loc: Room: [address] [place] [address] Type: ADM IN Attending Dr: Geo Thomas DO Copies to: ~ ADDENDUM1 Tolerating CPAP trial this morning. He will continue on CPAP as tolerated and back to AC/VC in case of respiratory distress Addendum Documented By: Morales Mckeon MD 08/15/23 115 Addendum Signed By: <Electronically signed by Morales Mckeon MD> 08/15/23 1157 Date of Service: 08/15/2023 Subjective Subjective Narrative: No acute events overnight. Switched to PSV. Tracheostomy tube in place. No significant amount of purulent secretions coming out from tracheotomy. No vasopressors. Sputum culture growing yeast/most likely colonization Laboratory data and images reviewed Exam Physical Exam Vital Signs: Temp Pulse Resp BP Pulse Ox O2 Del Method O2 Flow Rate 97.6 F 97 17 160/74 H 98 Mechanical Ventilation 35 08/15/23 04:00 08/15/23 08:01 08/15/23 08:01 08/15/23 06:00 08/15/23 06:00 08/15/23 06:00 08/13/23 08:00 FiO2 40 08/15/23 08:01 Narrative: Constitutional: Awake, on mechanical ventilation, on Precedex HEENT: EOMi, PERRL+, oral mucosa moist Cardiovascular: Regular rate and rhythm, tachycardiac Respiratory: Coarse breath sounds in both lungs. Chest is symmetric GI: soft abdomen, hypoactive bowel sounds Neuro: Opening eyes, following simple commands, slightly agitated, no gross motor deficits Extremities: left transmetatarsal amputee, no clear signs of infection Objective Intake and Output I&O - Last 24 Hours: Intake & Output 08/14/23 08/15/23 08/15/23 23:59 07:59 15:59 Intake Total 896 / 1276 400 / 400 Output Total 100 / 145 30 / 30 Balance 796 / 1131 370 / 370 Weight 85.6 kg Labs 08/15/23 04:50 08/15/23 04:50 Microbiology Micro: Microbiology 3 08/11/23 09:26 Blood Culture - Preliminary Blood - Left Antecubital No Growth 4 Days 08/11/23 09:25 Blood Culture - Preliminary Blood - Left Hand No Growth 4 Days 08/12/23 09:50 Aerobic Culture - Preliminary Sputum - Endotrachael Rajiv albicans Fungal like structure Gram Stain - Final 08/11/23 19:05 Urine Culture - Final [place] Rajiv glabrata 08/13/23 14:18 Aerobic Culture - Preliminary Sputum - Endotrachael Rare normal respiratory suyapa 1 Day Gram Stain - Final Assessment/Plan Assessment/Plan (1) Acute hypoxic respiratory failure: (2) Acute pulmonary edema: (3) ESRD (end stage renal disease): (4) T2DM (type 2 diabetes mellitus): (5) PAD (peripheral artery disease): Plan Neurochecks per ICU Avoid sedatives Precedex for sedation as needed Fentanyl as needed for analgesia Maintain mean arterial pressure higher than 65 PSV at day time back to AC/VC at [facility] Discontinue Vancomycin Continue empiric antibiotics Continue supportive care. Documented By: Morales Mckeon MD [id number] Signed By: <Electronically signed by Morales Mckeon MD> 08/15/23 1153 [facility] Work Phone: 1(659) 673-206503-22-2024 Progress note Author Geo Thomas [facility] August 15, 2023 10:15am Note Date/Time August 15, 2023 9:4 2am [facility] [address] [place] [address] Hospitalist Progress Note Signed Patient: Sudeep Diego JR MR#: [id number] : 1950 Acct:[id number] Age/Sex: 72 / M Adm Date: 4 Loc: Room: [address] [place] [address] Type: ADM IN Attending Dr: Geo Thomas DO Copies to: ~ Date of Service: 08/15/2023 Subjective Subjective Narrative: Bedside nurse today reports that the patient is not getting any sleep at all at nighttime. Today, when I come around around 10:00 in the morning, the patient's eyes are closed. He does wake up briefly to my voice and follows some commands like open your eyes but then he seems to fall back asleep again. Blood pressure has become modestly elevated, such as 160/74 and his glucose levels are rising, likely due to tube feeding reaching his goal, such as 232, 203, and 220. Exam Physical Exam Vital Signs: Temp Pulse Resp BP Pulse Ox O2 Del Method O2 Flow Rate 97.6 F 97 17 160/74 H 98 Mechanical Ventilation 35 08/15/23 04:00 08/15/23 08:01 08/15/23 08:01 08/15/23 06:00 08/15/23 06:00 08/15/23 06:00 08/13/23 08:00 FiO2 40 08/15/23 08:01 Narrative: General: Not on any sedation. Tracheostomy site: This is in good condition. No bleeding. No drainage Pulmonary: Rhonchorous breath sounds when auscultating anteriorly, which is the same as yesterday. Cardiac: Normal sinus rhythm on the monitor today, HR about 90. Difficult to auscultate today due to tracheal secretions, but I hear a variable split S2. GI: Abdomen is soft and nontender to palpation throughout. Normal bowel sounds to auscultation. Extremities: Legs currently have no edema whatsoever. The foot transmetatarsal amputation site is dressed. It is clean and dry. Objective Lab Results 08/15/23 04:50 08/15/23 04:50 Microbiology Results Microbiology 08/12/23 09:50 Sputum - Endotrachael Aerobic Culture - Preliminary Rajiv albicans Fungal like structure 08/12/23 09:50 Sputum - Endotrachael Gram Stain - Final 08/11/23 19:05 [place] Urine Culture - Final Rajiv glabrata 08/13/23 14:18 Sputum - Endotrachael Aerobic Culture - Preliminary Rare normal respiratory suyapa 1 Day 08/13/23 14:18 Sputum - Endotrachael Gram Stain - Final 08/11/23 09:26 Blood - Left Antecubital Blood Culture - Preliminary No Growth 3 Days 08/11/23 09:25 Blood - Left Hand Blood Culture - Preliminary No Growth 3 Days Meds Allergies and Active Meds Allergies cefepime Allergy (Unknown, Verified 07/10/23 18:46) Hives lisinopril Allergy (Unknown, Verified 07/10/23 18:46) Swelling of Lip/Tongue/Throat, SWELLING metformin Allergy (Unknown, Verified 07/10/23 18:46) Back Pain, KIDNEY PAIN Active Meds: Active Medications Generic Name Dose Route Start Last Admin Trade Name Freq PRN Reason Stop Dose Admin Acetaminophen 650 mg 08/01/23 14:13 08/07/23 16:44 Acetaminophen 325 Mg Tablet PO 07/31/24 14:12 650 mg Q6H PRN Administration Pain Acetaminophen 650 mg 08/13/23 14:00 08/13/23 22:18 Acetaminophen 650 Mg/20.3 Ml Oral.Susp NG-TUBE 08/12/24 13:59 650 mg Q6H PRN Administration Fever or Pain Albuterol 6 puff 08/01/23 12:00 08/15/23 05:13 Albuterol Hfa 200 Puff/18 Gm Inhaler VENT 07/31/24 11:59 6 puff Q6HR KACI Administration Amlodipine Besylate 5 mg 08/10/23 09:00 08/15/23 09:25 Amlodipine 5 Mg Tablet OG-TUBE 08/09/24 08:59 5 mg DAILY KACI Administration Darbepoetin Abisai 60 mcg 08/13/23 09:05 08/13/23 11:24 Darbepoetin Abisai In Polysorbat 60 Mcg/Ml Vial IV-PUSH 08/12/24 09:04 60 mcg QWEEK KACI Administration Protocol Dextrose 0 gm 08/01/23 08:05 Dextrose 50% In Water 25 Gm/50 Ml Syringe IV-PUSH 07/31/24 08:04 PRN PRN Hypoglycemia Fentanyl Citrate 50 mcg 08/13/23 14:00 08/15/23 04:43 Fentanyl/Pf 100 Mcg/2 Ml Vial IV-PUSH 50 mcg Q2H PRN Administration tracheostomy pain Ferric Sodium Gluconate Complex 62.5 mg 08/13/23 09:05 08/13/23 11:24 Sodium Ferric Gluconat/Sucrose 62.5 Mg/5 Ml Vial IV-PUSH 08/12/24 09:04 62.5 mg We@0900 KACI Administration Glucose 0 gm 08/01/23 08:05 Dextrose 40% Gel 15 Gm Tube PO 07/31/24 08:04 PRN PRN Hypoglycemia Heparin Sodium (Porcine) 5,000 unit 08/02/23 14:00 08/15/23 06:34 Heparin 5,000 Unit/Ml Vial SUBCUT 08/01/24 13:59 5,000 unit Q8HR KACI Administration Heparin Sodium (Porcine) 4,100 unit 08/08/23 14:33 08/13/23 11:24 Heparin 10,000 Unit/10 Ml Vial IV 08/07/24 14:32 4,100 unit PRN PRN Administration Dialysis Heparin Sodium (Porcine) 2,500 unit 08/15/23 09:09 Heparin 10,000 Unit/10 Ml Vial IV 08/01/24 09:40 PRN PRN Dialysis Heparin Sodium (Porcine) 1,500 unit 08/15/23 09:09 Heparin 10,000 Unit/10 Ml Vial IV 08/05/24 10:45 PRN PRN Dialysis Hydralazine HCl 10 mg 08/08/23 12:08 08/15/23 04:42 Hydralazine 20 Mg/Ml Vial IV-PUSH 08/07/24 12:07 10 mg Q4H PRN Administration Hypertension Sodium Chloride 1,000 mls @ 0 mls/hr 08/01/23 10:32 08/13/23 11:29 0.9% Sodium Chloride 1,000 Ml MISCELLANE 07/31/24 10:31 Infused .Q0M PRN Infusion Dialysis As Directed Sodium Chloride 1,000 mls @ 0 mls/hr 08/02/23 09:41 08/08/23 14:31 0.9% Sodium Chloride 1,000 Ml MISCELLANE 08/01/24 09:40 Infused .Q0M PRN Infusion Dialysis As Directed Dexmedetomidine HCl 400 mcg/ 100 mls @ 4.84 mls/hr 08/05/23 10:15 08/14/23 20:56 Dextrose IV 08/04/24 10:14 Not Given .[id number] KACI Protocol 0.2 MCG/KG/HR Meropenem 0.5 gm in 100 mls @ 33.333 mls/hr 08/13/23 16:30 08/14/23 17:13 Merrem IV 33.33 mls/hr Q24H KACI Administration Insulin Aspart 0 units 08/01/23 12:00 08/15/23 06:33 Insulin Aspart 300 Units/3 Ml Insuln.Pen SUBCUT 07/31/24 11:59 3 units Q6HR KACI Administration Protocol Insulin Glargine 20 units 08/15/23 21:00 Insulin Glargine 300 Units/3 Ml Insuln.Pen SUBCUT 08/14/24 20:59 BID KACI Magnesium Hydroxide 30 ml 08/03/23 22:14 Magnesium Hydroxide Susp 30 Ml Udc PO 08/02/24 22:13 DAILY PRN Constipation Metoprolol Tartrate 5 mg 08/14/23 12:29 Metoprolol Tartrate 5 Mg/5 Ml Vial IV-PUSH 08/13/24 12:28 Q4H PRN Blood Pressure Metoprolol Tartrate 25 mg 08/15/23 15:00 Metoprolol Tartrate 25 Mg Tablet NG-TUBE 08/14/24 14:59 Q8H KACI Midazolam HCl 4 mg 08/07/23 12:34 08/08/23 13:00 Midazolam/Pf 2 Mg/2 Ml Vial IV-PUSH 4 mg ONCE PRN Administration sedation Pantoprazole Sodium 40 mg 08/01/23 09:00 08/15/23 09:28 Pantoprazole 40 Mg Vial IV-PUSH 07/31/24 08:59 40 mg DAILY KACI Administration Quetiapine Fumarate 50 mg 08/13/23 14:00 08/15/23 09:25 Quetiapine Fumarate 50 Mg Tablet PO 08/12/24 13:59 50 mg BID.9A.2P KACI Administration Sodium Chloride 10 ml 08/01/23 08:07 08/15/23 09:29 Sodium Chloride 0.9 % 10 Ml Vial.Pf INJECTION 07/31/24 08:06 10 ml PRN PRN Administration Dilution Sodium Chloride 10 ml 08/01/23 08:07 08/15/23 09:28 Sodium Chloride 0.9 % 10 Ml Syringe IV-PUSH 07/31/24 08:06 10 ml PRN PRN Administration Flush Sodium Chloride 0 ml 08/01/23 10:32 08/11/23 11:57 Sodium Chloride 0.9 % 10 Ml Syringe IV-PUSH 07/31/24 10:31 40 ml PRN PRN Administration Flush Sodium Chloride 0 ml 08/02/23 09:41 08/13/23 11:23 Sodium Chloride 0.9 % 10 Ml Syringe IV-PUSH 08/01/24 09:40 40 ml PRN PRN Administration Flush Vancomycin HCl 1 each 08/12/23 09:03 Vancomycin - Pharmacy Dosing 1 Each Miscell IV ONCE PRN ZZ.Pharmacy Consult A&P - Hospitalist Assessment/Plan (1) Acute hypoxic respiratory failure: (2) ESRD (end stage renal disease): (3) T2DM (type 2 diabetes mellitus): (4) Hyperlipemia: (5) HTN (hypertension): (6) PAD (peripheral artery disease): (7) Encephalopathy: (8) Anemia of renal disease: Plan Active Meds: Active Medications Generic Name Dose Route Start Last Admin Trade Name Freq PRN Reason Stop Dose Admin Acetaminophen 650 mg 08/01/23 14:13 08/05/23 22:20 Acetaminophen 325 Mg Tablet PO 07/31/24 14:12 650 mg Q6H PRN Administration Pain Albuterol 6 puff 08/01/23 12:00 08/06/23 05:05 Albuterol Hfa 200 Puff/18 Gm Inhaler VENT 07/31/24 11:59 6 puff Q6HR KACI Administration Chlorhexidine Gluconate 15 ml 08/01/23 09:00 08/06/23 08:42 Chlorhexidine Gluconate 0.12% 15 Ml Udc MUCOUS MEM 07/31/24 08:59 15 ml BID KACI Administration Dextrose 0 gm 08/01/23 08:05 Dextrose 50% In Water 25 Gm/50 Ml Syringe IV-PUSH 07/31/24 08:04 PRN PRN Hypoglycemia Docusate Sodium 100 mg 08/04/23 09:00 08/06/23 08:42 Docusate Liquid 100 Mg/10 Ml Udc PO 08/03/24 08:59 100 mg BID KACI Administration Fentanyl Citrate 50 mcg 08/02/23 09:44 08/03/23 21:01 Fentanyl/Pf 100 Mcg/2 Ml Vial IV-PUSH 50 mcg Q2H PRN Administration Pain Scale 4 - 7 Glucose 0 gm 08/01/23 08:05 Dextrose 40% Gel 15 Gm Tube PO 07/31/24 08:04 PRN PRN Hypoglycemia Heparin Sodium (Porcine) 2,000 unit 08/01/23 10:32 08/04/23 18:04 Heparin 10,000 Unit/10 Ml Vial IV 07/31/24 10:31 2,000 unit PRN PRN Administration Dialysis Heparin Sodium (Porcine) 500 unit 08/01/23 10:32 08/04/23 18:05 Heparin 10,000 Unit/10 Ml Vial IV 07/31/24 10:31 500 unit PRN PRN Administration Dialysis Heparin Sodium (Porcine) 2,000 unit 08/02/23 09:41 08/02/23 22:59 Heparin 10,000 Unit/10 Ml Vial IV 08/01/24 09:40 2,000 unit PRN PRN Administration Dialysis Heparin Sodium (Porcine) 5,000 unit 08/02/23 14:00 08/06/23 06:28 Heparin 5,000 Unit/Ml Vial SUBCUT 08/01/24 13:59 5,000 unit Q8HR KACI Administration Sodium Chloride 1,000 mls @ 0 mls/hr 08/01/23 10:32 08/04/23 18:05 0.9% Sodium Chloride 1,000 Ml MISCELLANE 07/31/24 10:31 Infused .Q0M PRN Infusion Dialysis As Directed Meropenem 0.5 gm in 100 mls @ 33.3 mls/hr 08/01/23 14:00 08/05/23 17:17 Merrem IV 08/07/23 17:01 Infused Q24H KACI Infusion Sodium Chloride 1,000 mls @ 0 mls/hr 08/02/23 09:41 08/02/23 23:01 0.9% Sodium Chloride 1,000 Ml MISCELLANE 08/01/24 09:40 Infused .Q0M PRN Infusion Dialysis As Directed Fentanyl 1,000 mcg in 100 mls @ 2.5 mls/hr 08/03/23 22:30 08/06/23 06:29 Fentanyl 1,000 Mcg/100 Ml D5w IV Not Given .Q24H KACI Protocol 25 MCG/HR Dexmedetomidine HCl 400 mcg/ 100 mls @ 4.84 mls/hr 08/05/23 10:15 08/06/23 07:43 Dextrose IV 08/04/24 10:14 1.5 mcg/kg/hr .[id number] KACI 36.3 mls/hr Administration Protocol 0.2 MCG/KG/HR Midazolam HCl 100 mg in 100 mls @ 1 mls/hr 08/05/23 23:00 08/05/23 23:30 Versed IV 02/01/24 22:59 3 mg/hr .Q24H KACI 3 mls/hr Titration Protocol 1 MG/HR Magnesium Sulfate 4 gm in 100 mls @ 25 mls/hr 08/06/23 09:20 Magnesium Sulf 4 Gm-*Swfi* IV 08/06/23 13:19 ONCE ONE Insulin Aspart 0 units 08/01/23 12:00 08/06/23 06:28 Insulin Aspart 300 Units/3 Ml Insuln.Pen SUBCUT 07/31/24 11:59 2 units Q6HR KACI Administration Protocol Magnesium Hydroxide 30 ml 08/03/23 22:14 Magnesium Hydroxide Susp 30 Ml Udc PO 08/02/24 22:13 DAILY PRN Constipation Midazolam HCl 4 mg 08/05/23 11:12 08/05/23 22:41 Midazolam/Pf 2 Mg/2 Ml Vial IV-PUSH 02/01/24 11:11 4 mg Q3H PRN Administration Agitation Pantoprazole Sodium 40 mg 08/01/23 09:00 08/06/23 08:42 Pantoprazole 40 Mg Vial IV-PUSH 07/31/24 08:59 40 mg DAILY KACI Administration Sennosides 8.8 mg 08/04/23 09:00 08/06/23 08:42 Sennosides Syrup 8.8 Mg/5 Ml Udc PO 08/03/24 08:59 8.8 mg BID KACI Administration Sodium Chloride 10 ml 08/01/23 08:07 08/06/23 08:43 Sodium Chloride 0.9 % 10 Ml Vial.Pf INJECTION 07/31/24 08:06 10 ml PRN PRN Administration Dilution Sodium Chloride 10 ml 08/01/23 08:07 08/01/23 08:49 Sodium Chloride 0.9 % 10 Ml Syringe IV-PUSH 07/31/24 08:06 10 ml PRN PRN Administration Flush Sodium Chloride 0 ml 08/01/23 10:32 08/05/23 17:19 Sodium Chloride 0.9 % 10 Ml Syringe IV-PUSH 07/31/24 10:31 10 ml PRN PRN Administration Flush Sodium Chloride 0 ml 08/02/23 09:41 08/04/23 16:49 Sodium Chloride 0.9 % 10 Ml Syringe IV-PUSH 08/01/24 09:40 40 ml PRN PRN Administration Flush Please note, the above section about medications has been auto inserted into my document by the EHR somehow and cannot be removed. I do not know why it brings information dating in from 08/01 and 08/03. It is impossible for me to delete this. Therefore kindly dis-regard. Assessment: Acute hypoxic respiratory failure. 14 days of ventilator use. Influenza A. Present on admission. Significant problems with mucus plugging. Now improved after tracheostomy. Need for tracheostomy. Tracheostomy placed on 08/12/2023. Recent hospital stay with diabetic foot with kim osteomyelitis, transmetatarsal amputation, and MSSA osteomyelitis. Diabetes mellitus type 2. Hyperglycemic. A1C 8.1. Peripheral arterial disease with history of angioplasty left lower extremity in the past. Hypertension. Progression to maintenance requiring end-stage renal disease. Lingering problem is encephalopathy. Additional problems likely include ICU related psychosis, sleep-wake cycle disruption, sleep deprivation, and lingering delirium. Plan: Increase Toprol to 25 mg every 8 hours today. Increase Lantus insulin to 20 units subcutaneously twice a day. Pulmonology has the patient on Seroquel. I defer to pulmonology/critical care on their decision making regarding medications to help regulate his sleep-wake cycle. Documented By: Geo Thomas DO [id number] Signed By: <Electronically signed by Geo Thomas DO> 08/15/23 3237 [facility] Work Phone: 1(183) 329-273303-21-2024 Progress note Author Rancho Kay [facility] August 14, 2023 1:03pm Note Date/Time August 14, 2023 1:0 3pm [facility] [address] [place] [address] Nephrology Progress Note Signed Patient: Sudeep Diego MR#: [id number] : 1950 Acct:[id number] Age/Sex: 72 / M Adm Date: 4 Loc: Room: 9Q7497-3 Type: ADM IN Attending Dr: Geo Thomas DO Copies to: ~ Date of Service: 08/14/2023 Subjective Subjective Narrative: Mr. Diego is a 72-year-old male with history of DM2, HTN, PAD and prostate cancer. Patient was recently started on hemodialysis during his admission in June 2023 for SONYA possibly related to ATN versus Staph aureus glomerulonephritis. 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 Creatinine has increased up to 5 mg/dL with no evidence of recovery. [facility] was [facility] to [facility]. Patient presented to [facility] from his nursing facility with severe shortness of breath requiring intubation. Chest x-ray showed bilateral pulmonary infiltrate with possible pulmonary edema. Subsequently the patient was transferred to [facility] and he continues to be on vent. Respiratory swab showed evidence of influenza A. Patient is currently being treated for healthcare associated pneumonia with vancomycin and meropenem. Troponin was found to be elevated up to 1700. Hemoglobin was only 6.5 g/dL in setting of infection. Cardiology evaluated the patient and no intervention is planned at this point at the patient most likely has type II demand decreased cardiac perfusion. Nephrology was consulted for ESRD and dialysis. Interim History: Patient is being seen and examined at bedside. He was given IV potassium chloride this manage by the restaurant management internship. He had multiple bowel movements overnight. He is currently on tube feeding. He was also put on CPAP trial thismorning. Exam Physical Exam Vital Signs: Temp Pulse Resp BP Pulse Ox O2 Del Method O2 Flow Rate 98.9 F 100 23 152/72 H 98 Mechanical Ventilation 35 08/14/23 11:55 08/14/23 12:35 08/14/23 12:35 08/14/23 11:55 08/14/23 11:55 08/14/23 11:55 08/13/23 08:00 FiO2 50 08/14/23 12:35 Narrative: General: Appears comfortable and not in distress Heart: S1-S2, no rub Lung: Bilateral air entry, no wheezing or crackles Abdomen: Soft, positive bowel sounds Extremities: No edema, no cyanosis Head: Atraumatic, normocephalic Ear: No external ear redness or tenderness Eyes: No pallor or redness Neck: No JVD or visible mass Skin: No rashes , warm to touch [employer]: Somnolent but arousable. Musculoskeletal: No large joint swelling or tenderness Objective Intake and Output I&O: Intake & Output 08/11/23 08/12/23 08/13/23 08/14/23 23:59 23:59 23:59 23:59 Intake Total 1000 / 1000 400 / 400 1352 / 1352 380 / 380 Output Total 2564 / 2564 38 / 38 2739 / 2739 45 / 45 Balance -1564 / -1564 362 / 362 -1387 / -1387 335 / 335 Weight 92.3 kg 89.2 kg 88.3 kg 86.3 kg Meds and Allergies Meds: Active Medications Acetaminophen (Acetaminophen 325 Mg Tablet) 650 mg PO Q6H PRN PRN Reason: Pain Stop: 07/31/24 14:12 Last Admin: 08/07/23 16:44 Dose: 650 mg Acetaminophen (Acetaminophen 650 Mg/20.3 Ml Oral.Susp) 650 mg NG-TUBE Q6H PRN PRN Reason: Fever or Pain Stop: 08/12/24 13:59 Last Admin: 08/13/23 22:18 Dose: 650 mg Albuterol (Albuterol Hfa 200 Puff/18 Gm Inhaler) 6 puff VENT Q6HR KACI Stop: 07/31/24 11:59 Last Admin: 08/14/23 12:33 Dose: 6 puff Amlodipine Besylate (Amlodipine 5 Mg Tablet) 5 mg OG-TUBE DAILY [facility] Stop: 08/09/24 08:59 Last Admin: 08/14/23 08:42 Dose: 5 mg Darbepoetin Abisai (Darbepoetin Abisai In Polysorbat 60 Mcg/Ml Vial) 60 mcg IV- PUSHQWEEK [facility]; Protocol Stop: 08/12/24 09:04 Last Admin: 08/13/23 11:24 Dose: 60 mcg Dextrose (Dextrose 50% In Water 25 Gm/50 Ml Syringe) 0 gm IV-PUSH PRN PRN PRN Reason: Hypoglycemia Stop: 07/31/24 08:04 Fentanyl Citrate (Fentanyl/Pf 100 Mcg/2 Ml Vial) 50 mcg IV-PUSH Q2H PRN PRN Reason: tracheostomy pain Last Admin: 08/14/23 10:37 Dose: 50 mcg Ferric Sodium Gluconate Complex (Sodium Ferric Gluconat/Sucrose 62.5 Mg/5 Ml Vial) 62.5 mg IV-PUSH We@0900 [facility] Stop: 08/12/24 09:04 Last Admin: 08/13/23 11:24 Dose: 62.5 mg Glucose (Dextrose 40% Gel 15 Gm Tube) 0 gm PO PRN PRN PRN Reason: Hypoglycemia Stop: 07/31/24 08:04 Heparin Sodium (Porcine) (Heparin 10,000 Unit/10 Ml Vial) 2,000 unit IV PRN PRN PRN Reason: Dialysis Stop: 08/01/24 09:40 Last Admin: 08/13/23 11:23 Dose: 2,000 unit Heparin Sodium (Porcine) (Heparin 5,000 Unit/Ml Vial) 5,000 unit SUBCUT Q8HR KACI Stop: 08/01/24 13:59 Last Admin: 08/14/23 05:54 Dose: 5,000 unit Heparin Sodium (Porcine) (Heparin 10,000 Unit/10 Ml Vial) 1,000 unit IV PRN PRN PRN Reason: Dialysis Stop: 08/05/24 10:45 Last Admin: 08/13/23 11:23 Dose: 1,000 unit Heparin Sodium (Porcine) (Heparin 10,000 Unit/10 Ml Vial) 4,100 unit IV PRN PRN PRN Reason: Dialysis Stop: 08/07/24 14:32 Last Admin: 08/13/23 11:24 Dose: 4,100 unit Hydralazine HCl (Hydralazine 20 Mg/Ml Vial) 10 mg IV-PUSH Q4H PRN PRN Reason: Hypertension Stop: 08/07/24 12:07 Last Admin: 08/10/23 21:50 Dose: 10 mg Sodium Chloride (0.9% Sodium Chloride 1,000 Ml) 1,000 mls @ 0 mls/hr MISCELLANE.Q0M PRN PRN Reason: Dialysis Stop: 07/31/24 10:31 Last Infusion: 08/13/23 11:29 Dose: Infused Sodium Chloride (0.9% Sodium Chloride 1,000 Ml) 1,000 mls @ 0 mls/hr MISCELLANE.Q0M PRN PRN Reason: Dialysis Stop: 08/01/24 09:40 Last Infusion: 08/08/23 14:31 Dose: Infused Dexmedetomidine HCl 400 mcg/ (Dextrose) 100 mls @ 4.84 mls/hr IV .[id number] [facility]; Protocol Stop: 08/04/24 10:14 Last Titration: 08/14/23 08:57 Dose: 0 mcg/kg/hr, 0 mls/hr Meropenem (Merrem) 0.5 gm in 100 mls @ 33.333 mls/hr IV Q24H [facility] Last Admin: 08/13/23 17:18 Dose: 33.33 mls/hr Potassium Chloride 40 meq/ (Sodium Chloride) 520 mls @ 130 mls/hr IV ONCE ONE Stop: 08/14/23 13:59 Last Admin: 08/14/23 10:57 Dose: 130 mls/hr Insulin Aspart (Insulin Aspart 300 Units/3 Ml Insuln.Pen) 0 units SUBCUT Q6HR [facility]; Protocol Stop: 07/31/24 11:59 Last Admin: 08/14/23 12:03 Dose: 4 units Insulin Glargine (Insulin Glargine 300 Units/3 Ml Insuln.Pen) 10 units SUBCUT BID [facility] Stop: 08/12/24 20:59 Last Admin: 08/14/23 08:43 Dose: 10 units Magnesium Hydroxide (Magnesium Hydroxide Susp 30 Ml Udc) 30 ml PO DAILY PRN PRN Reason: Constipation Stop: 08/02/24 22:13 Metoprolol Tartrate (Metoprolol Tartrate 5 Mg/5 Ml Vial) 5 mg IV-PUSH Q4H PRN PRN Reason: Blood Pressure Stop: 08/13/24 12:28 Metoprolol Tartrate (Metoprolol Tartrate 25 Mg Tablet) 25 mg NG-TUBE BID [facility] Stop: 08/13/24 20:59 Midazolam HCl (Midazolam/Pf 2 Mg/2 Ml Vial) 4 mg IV-PUSH ONCE PRN PRN Reason: sedation Last Admin: 08/08/23 13:00 Dose: 4 mg Pantoprazole Sodium (Pantoprazole 40 Mg Vial) 40 mg IV-PUSH DAILY [facility] Stop: 07/31/24 08:59 Last Admin: 08/14/23 08:42 Dose: 40 mg Quetiapine Fumarate (Quetiapine Fumarate 50 Mg Tablet) 50 mg PO BID.9A.2P KACI Stop: 08/12/24 13:59 Last Admin: 08/14/23 08:42 Dose: 50 mg Sodium Chloride (Sodium Chloride 0.9 % 10 Ml Vial.Pf) 10 ml INJECTION PRN PRN PRN Reason: Dilution Stop: 07/31/24 08:06 Last Admin: 08/14/23 08:42 Dose: 10 ml Sodium Chloride (Sodium Chloride 0.9 % 10 Ml Syringe) 10 ml IV-PUSH PRN PRN PRN Reason: Flush Stop: 07/31/24 08:06 Last Admin: 08/14/23 08:42 Dose: 10 ml Sodium Chloride (Sodium Chloride 0.9 % 10 Ml Syringe) 0 ml IV-PUSH PRN PRN PRN Reason: Flush Stop: 07/31/24 10:31 Last Admin: 08/11/23 11:57 Dose: 40 ml Sodium Chloride (Sodium Chloride 0.9 % 10 Ml Syringe) 0 ml IV-PUSH PRN PRN PRN Reason: Flush Stop: 08/01/24 09:40 Last Admin: 08/13/23 11:23 Dose: 40 ml Vancomycin HCl (Vancomycin - Pharmacy Dosing 1 Each Miscell) 1 each IV ONCE PRN PRN Reason: ZZ.Pharmacy Consult Allergies cefepime Allergy (Unknown, Verified 07/10/23 18:46) Hives lisinopril Allergy (Unknown, Verified 07/10/23 18:46) Swelling of Lip/Tongue/Throat, SWELLING metformin Allergy (Unknown, Verified 07/10/23 18:46) Back Pain, KIDNEY PAIN Results - Nephrology Labs 08/14/23 04:10 08/14/23 04:10 Labs: 08/14/23 04:10 BUN 34 H D Creatinine 3.25 H D Radiology Impressions Impressions - last 24 hours: Impressions Chest X-Ray 08/14/23 08:54 IMPRESSION: No acute cardiopulmonary pathology. Support tubes are in satisfactory position. Impression dictated by: Nathan Lemus M.D.08/14/2023 11:20 AM Dictation Location: [place] [address] Any impression(s) listed above is documentation that was entered by the reading physician into a diagnostic report(s) for Sudeep Diego JR. I have reviewed the report(s) and am incorporating any findings in the treatment plan of this patient where applicable. A&P - Nephrology Assessment/Plan (1) SONYA (acute kidney injury): Assessment/Problem Details: Patient developed SONYA during his previous admission on June 2023 with left foot infection and staph bacteremia with no evidence of recovery currently on dialysis. Baseline creatinine was 1.1 mg/dL. Patient gets dialysis on MWF schedule (2) Acute pulmonary edema: Assessment/Problem Details: Patient presents with shortness of breath and respiratory failure. Chest x-ray showed pulmonary congestion with evidence of bilateral infiltrate. 2D echo showed dilated IVC with abnormal collapsibility suggestive of volume overload (3) Acute hypoxic respiratory failure: Assessment/Problem Details: Patient has bilateral infiltrate on chest x-ray, respiratory swab was positive for influenza A. Patient is currently getting treatment for healthcare associated pneumonia as well since he has recent hospitalization (4) T2DM (type 2 diabetes mellitus): Assessment/Problem Details: He has insulin-dependent type 2 diabetes mellitus. He was taking insulin glargine at home. (5) Elevated troponin level not due to acute coronary syndrome: Assessment/Problem Details: He has a type II SD likely due to demand ischemia in setting of CHF and sepsis. (6) Anemia of renal disease: Assessment/Problem Details: He has anemia in the setting of SONYA with superimposed infection. Patient has elevated ferritin and low iron saturation in setting of infection. Plan * No need for dialysis today. Next dialysis will be tomorrow if needed. * Continue empiric antibiotics for sepsis.. Pharmacy to dose medication based on ESRD status. * ANCA, and anti-GBM antibodies are negative. SUSANA positive for SLATE SPLITTER antibodies. Not sure about the clinical significant of these. Might have to do kidney biopsy when the patient is more stable. * Continue current dose of the amlodipine. His blood pressure is running high due to agitation. * Monitor H&H and transfuse as needed to keep the hemoglobin greater than 7.5 g/dL. * Vent management as directed by pulmonary service * Check renal function daily and monitor input output. Documented By: Rancho Kay MD 08/14/23 1257 Signed By: <Electronically signed by Rancho Kay MD> 08/14/23 1036 [facility] Work Phone: 1(994) 800-400803-21-2024 Progress note Author Morales Mckeon [facility] August 14, 2023 12:02pm Note Date/Time August 14, 2023 8:5 6am [facility] [address] [place] [address] Pulmonology Progress Note Signed Patient: Sudeep Diego JR MR#: [id number] : 1950 Acct:[id number] Age/Sex: 72 / M Adm Date: 4 Loc: Room: [address] [place] [address] Type: ADM IN Attending Dr: Geo Thomas DO Copies to: ~ Date of Service: 08/14/2023 Subjective Subjective Narrative: Patient is awake and following commands, switched to pressure support ventilation this morning. He is currently on 02/27. Tracheostomy tube in place. No significant amount of purulent secretions coming out from tracheotomy. No vasopressors. Low- grade fever. WBC trending downward. Sputum culture growing yeast/most likely colonization Laboratory data and images reviewed Exam Physical Exam Vital Signs: Temp Pulse Resp BP Pulse Ox O2 Del Method O2 Flow Rate 99.0 F 86 23 175/84 H 98 Mechanical Ventilation 35 08/14/23 08:00 08/14/23 08:37 08/14/23 08:37 08/14/23 08:00 08/14/23 08:00 08/14/23 08:00 08/13/23 08:00 FiO2 50 08/14/23 08:37 Narrative: Constitutional: Awake, on mechanical ventilation, on Precedex HEENT: EOMi, PERRL+, oral mucosa moist Cardiovascular: Regular rate and rhythm, tachycardiac Respiratory: Coarse breath sounds in both lungs. Chest is symmetric GI: soft abdomen, hypoactive bowel sounds Neuro: Opening eyes, following simple commands, slightly agitated, no gross motor deficits Extremities: left transmetatarsal amputee, no clear signs of infection Objective Intake and Output I&O - Last 24 Hours: Intake & Output 08/13/23 08/14/23 08/14/23 23:59 07:59 15:59 Intake Total 410 / 1102 380 / 380 Output Total 2738 45 / 45 Balance 380 / -1637 335 / 335 Weight 86.3 kg Labs 08/14/23 04:10 08/14/23 04:10 Microbiology Micro: Microbiology 3 08/12/23 09:50 Aerobic Culture - Preliminary Sputum - Endotrachael Yeast Like Organism Fungal like structure Gram Stain - Final 08/11/23 19:05 Urine Culture - Preliminary [place] Yeast, not Rajiv albicans 08/13/23 14:18 Gram Stain - Final Sputum - Endotrachael 08/11/23 09:26 Blood Culture - Preliminary Blood - Left Antecubital No Growth 2 Days 08/11/23 09:25 Blood Culture - Preliminary Blood - Left Hand No Growth 2 Days Assessment/Plan Assessment/Plan (1) Acute hypoxic respiratory failure: (2) Acute pulmonary edema: (3) ESRD (end stage renal disease): (4) T2DM (type 2 diabetes mellitus): (5) PAD (peripheral artery disease): Plan Hospital day #14, ventilator day #14 Neurochecks per ICU Avoid sedatives Precedex for sedation as needed Fentanyl as needed for analgesia Off vasopressors Maintain mean arterial pressure higher than 65 Did tolerate CPAP trial for more than 6 hours Daily CPAP trial Continue empiric antibiotics Follow up sputum culture Continue supportive care. Documented By: Morales Mckeon MD [id number] Signed By: <Electronically signed by Morales Mckeon MD> 08/14/23 1202 [facility] Work Phone: [phone]) 818-163603-21-2024 Progress note Author Geo Thomas [facility] August 14, 2023 9:36am Note Date/Time August 14, 2023 9:0 6am [facility] [address] [place] [address] Hospitalist Progress Note Signed Patient: Sudeep Diego JR MR#: [id number] : 1950 Acct:[id number] Age/Sex: 72 / M Adm Date: 4 Loc: Room: [address] [place] [address] Type: ADM IN Attending Dr: Geo Thomas DO Copies to: ~ Date of Service: 08/14/2023 Subjective Subjective Narrative: The bedside nursing today reports that the patient did not get much sleep at alllast night until the very late morning hours. This morning is on a CPAP trial. His tube feeding has been increased to the initial goal of 40 mL/h. Overnight he did have multiple bowel movements. When I see him he does not make as much eye contact with me today as he did yesterday. He looks like he is sleepy and therefore not able to stay awake enough to follow my commands. Exam Physical Exam Vital Signs: Temp Pulse Resp BP Pulse Ox O2 Del Method O2 Flow Rate 99.0 F 100 23 161/76 H 98 Mechanical Ventilation 35 08/14/23 08:00 08/14/23 08:57 08/14/23 08:37 08/14/23 08:57 08/14/23 08:00 08/14/23 08:00 08/13/23 08:00 FiO2 50 08/14/23 08:37 Narrative: General: On a CPAP trial at this time. Not on any sedation. Continues to wave his head [id number], but not as rapid and not as vigorous as he did the last2 days. Tracheostomy site: This is in good condition. No bleeding. No drainage Pulmonary: Rhonchorous breath sounds when auscultating anteriorly, which is the same as yesterday. Cardiac: Normal sinus rhythm on the monitor today, HR about 90. Difficult to auscultate today due to tracheal secretions, but I hear a variable split S2. GI: Abdomen is soft and nontender to palpation throughout. Normal bowel sounds to auscultation. Extremities: Legs currently have no edema whatsoever. The foot transmetatarsal amputation site is dressed. It is clean and dry. Objective Lab Results 08/14/23 04:10 08/14/23 04:10 Microbiology Results Microbiology 08/12/23 09:50 Sputum - Endotrachael Aerobic Culture - Preliminary Yeast Like Organism Fungal like structure 08/12/23 09:50 Sputum - Endotrachael Gram Stain - Final 08/11/23 19:05 [place] Urine Culture - Preliminary Yeast, not Rajiv albicans 08/13/23 14:18 Sputum - Endotrachael Gram Stain - Final 08/11/23 09:26 Blood - Left Antecubital Blood Culture - Preliminary No Growth 2 Days 08/11/23 09:25 Blood - Left Hand Blood Culture - Preliminary No Growth 2 Days Meds Allergies and Active Meds Allergies cefepime Allergy (Unknown, Verified 07/10/23 18:46) Hives lisinopril Allergy (Unknown, Verified 07/10/23 18:46) Swelling of Lip/Tongue/Throat, SWELLING metformin Allergy (Unknown, Verified 07/10/23 18:46) Back Pain, KIDNEY PAIN Active Meds: Active Medications Generic Name Dose Route Start Last Admin Trade Name Freq PRN Reason Stop Dose Admin Acetaminophen 650 mg 08/01/23 14:13 08/07/23 16:44 Acetaminophen 325 Mg Tablet PO 07/31/24 14:12 650 mg Q6H PRN Administration Pain Acetaminophen 650 mg 08/13/23 14:00 08/13/23 22:18 Acetaminophen 650 Mg/20.3 Ml Oral.Susp NG-TUBE 08/12/24 13:59 650 mg Q6H PRN Administration Fever or Pain Albuterol 6 puff 08/01/23 12:00 08/14/23 05:16 Albuterol Hfa 200 Puff/18 Gm Inhaler VENT 07/31/24 11:59 6 puff Q6HR KACI Administration Amlodipine Besylate 5 mg 08/10/23 09:00 08/14/23 08:42 Amlodipine 5 Mg Tablet OG-TUBE 08/09/24 08:59 5 mg DAILY KACI Administration Darbepoetin Abisai 60 mcg 08/13/23 09:05 08/13/23 11:24 Darbepoetin Abisai In Polysorbat 60 Mcg/Ml Vial IV-PUSH 08/12/24 09:04 60 mcg QWEEK KACI Administration Protocol Dextrose 0 gm 08/01/23 08:05 Dextrose 50% In Water 25 Gm/50 Ml Syringe IV-PUSH 07/31/24 08:04 PRN PRN Hypoglycemia Fentanyl Citrate 50 mcg 08/13/23 14:00 08/14/23 03:11 Fentanyl/Pf 100 Mcg/2 Ml Vial IV-PUSH 50 mcg Q2H PRN Administration tracheostomy pain Ferric Sodium Gluconate Complex 62.5 mg 08/13/23 09:05 08/13/23 11:24 Sodium Ferric Gluconat/Sucrose 62.5 Mg/5 Ml Vial IV-PUSH 08/12/24 09:04 62.5 mg We@0900 KACI Administration Glucose 0 gm 08/01/23 08:05 Dextrose 40% Gel 15 Gm Tube PO 07/31/24 08:04 PRN PRN Hypoglycemia Heparin Sodium (Porcine) 2,000 unit 08/02/23 09:41 08/13/23 11:23 Heparin 10,000 Unit/10 Ml Vial IV 08/01/24 09:40 2,000 unit PRN PRN Administration Dialysis Heparin Sodium (Porcine) 5,000 unit 08/02/23 14:00 08/14/23 05:54 Heparin 5,000 Unit/Ml Vial SUBCUT 08/01/24 13:59 5,000 unit Q8HR KACI Administration Heparin Sodium (Porcine) 1,000 unit 08/06/23 10:46 08/13/23 11:23 Heparin 10,000 Unit/10 Ml Vial IV 08/05/24 10:45 1,000 unit PRN PRN Administration Dialysis Heparin Sodium (Porcine) 4,100 unit 08/08/23 14:33 08/13/23 11:24 Heparin 10,000 Unit/10 Ml Vial IV 08/07/24 14:32 4,100 unit PRN PRN Administration Dialysis Hydralazine HCl 10 mg 08/08/23 12:08 08/10/23 21:50 Hydralazine 20 Mg/Ml Vial IV-PUSH 08/07/24 12:07 10 mg Q4H PRN Administration Hypertension Sodium Chloride 1,000 mls @ 0 mls/hr 08/01/23 10:32 08/13/23 11:29 0.9% Sodium Chloride 1,000 Ml MISCELLANE 07/31/24 10:31 Infused .Q0M PRN Infusion Dialysis As Directed Sodium Chloride 1,000 mls @ 0 mls/hr 08/02/23 09:41 08/08/23 14:31 0.9% Sodium Chloride 1,000 Ml MISCELLANE 08/01/24 09:40 Infused .Q0M PRN Infusion Dialysis As Directed Dexmedetomidine HCl 400 mcg/ 100 mls @ 4.84 mls/hr 08/05/23 10:15 08/14/23 08:57 Dextrose IV 08/04/24 10:14 0 mcg/kg/hr .[id number] KACI 0 mls/hr Titration Protocol 0.2 MCG/KG/HR Meropenem 0.5 gm in 100 mls @ 33.333 mls/hr 08/13/23 16:30 08/13/23 17:18 Merrem IV 33.33 mls/hr Q24H KACI Administration Potassium Chloride 40 meq/ 520 mls @ 130 mls/hr 08/14/23 08:54 Sodium Chloride IV 08/14/23 12:53 ONCE ONE Insulin Aspart 0 units 08/01/23 12:00 08/14/23 05:55 Insulin Aspart 300 Units/3 Ml Insuln.Pen SUBCUT 07/31/24 11:59 Not Given Q6HR [facility] Protocol Insulin Glargine 10 units 08/13/23 21:00 08/14/23 08:43 Insulin Glargine 300 Units/3 Ml Insuln.Pen SUBCUT 08/12/24 20:59 10 units BID KACI Administration Magnesium Hydroxide 30 ml 08/03/23 22:14 Magnesium Hydroxide Susp 30 Ml Udc PO 08/02/24 22:13 DAILY PRN Constipation Midazolam HCl 4 mg 08/07/23 12:34 08/08/23 13:00 Midazolam/Pf 2 Mg/2 Ml Vial IV-PUSH 4 mg ONCE PRN Administration sedation Pantoprazole Sodium 40 mg 08/01/23 09:00 08/14/23 08:42 Pantoprazole 40 Mg Vial IV-PUSH 07/31/24 08:59 40 mg DAILY KACI Administration Quetiapine Fumarate 50 mg 08/13/23 14:00 08/14/23 08:42 Quetiapine Fumarate 50 Mg Tablet PO 08/12/24 13:59 50 mg BID.9A.2P KACI Administration Sodium Chloride 10 ml 08/01/23 08:07 08/14/23 08:42 Sodium Chloride 0.9 % 10 Ml Vial.Pf INJECTION 07/31/24 08:06 10 ml PRN PRN Administration Dilution Sodium Chloride 10 ml 08/01/23 08:07 08/14/23 08:42 Sodium Chloride 0.9 % 10 Ml Syringe IV-PUSH 07/31/24 08:06 10 ml PRN PRN Administration Flush Sodium Chloride 0 ml 08/01/23 10:32 08/11/23 11:57 Sodium Chloride 0.9 % 10 Ml Syringe IV-PUSH 07/31/24 10:31 40 ml PRN PRN Administration Flush Sodium Chloride 0 ml 08/02/23 09:41 08/13/23 11:23 Sodium Chloride 0.9 % 10 Ml Syringe IV-PUSH 08/01/24 09:40 40 ml PRN PRN Administration Flush Vancomycin HCl 1 each 08/12/23 09:03 Vancomycin - Pharmacy Dosing 1 Each Miscell IV ONCE PRN ZZ.Pharmacy Consult A&P - Hospitalist Assessment/Plan (1) Acute hypoxic respiratory failure: (2) ESRD (end stage renal disease): (3) T2DM (type 2 diabetes mellitus): (4) Hyperlipemia: (5) HTN (hypertension): (6) PAD (peripheral artery disease): (7) Encephalopathy: (8) Anemia of renal disease: Plan Active Meds: Active Medications Generic Name Dose Route Start Last Admin Trade Name Freq PRN Reason Stop Dose Admin Acetaminophen 650 mg 08/01/23 14:13 08/05/23 22:20 Acetaminophen 325 Mg Tablet PO 07/31/24 14:12 650 mg Q6H PRN Administration Pain Albuterol 6 puff 08/01/23 12:00 08/06/23 05:05 Albuterol Hfa 200 Puff/18 Gm Inhaler VENT 07/31/24 11:59 6 puff Q6HR KACI Administration Chlorhexidine Gluconate 15 ml 08/01/23 09:00 08/06/23 08:42 Chlorhexidine Gluconate 0.12% 15 Ml Udc MUCOUS MEM 07/31/24 08:59 15 ml BID KACI Administration Dextrose 0 gm 08/01/23 08:05 Dextrose 50% In Water 25 Gm/50 Ml Syringe IV-PUSH 07/31/24 08:04 PRN PRN Hypoglycemia Docusate Sodium 100 mg 08/04/23 09:00 08/06/23 08:42 Docusate Liquid 100 Mg/10 Ml Udc PO 08/03/24 08:59 100 mg BID KACI Administration Fentanyl Citrate 50 mcg 08/02/23 09:44 08/03/23 21:01 Fentanyl/Pf 100 Mcg/2 Ml Vial IV-PUSH 50 mcg Q2H PRN Administration Pain Scale 4 - 7 Glucose 0 gm 08/01/23 08:05 Dextrose 40% Gel 15 Gm Tube PO 07/31/24 08:04 PRN PRN Hypoglycemia Heparin Sodium (Porcine) 2,000 unit 08/01/23 10:32 08/04/23 18:04 Heparin 10,000 Unit/10 Ml Vial IV 07/31/24 10:31 2,000 unit PRN PRN Administration Dialysis Heparin Sodium (Porcine) 500 unit 08/01/23 10:32 08/04/23 18:05 Heparin 10,000 Unit/10 Ml Vial IV 07/31/24 10:31 500 unit PRN PRN Administration Dialysis Heparin Sodium (Porcine) 2,000 unit 08/02/23 09:41 08/02/23 22:59 Heparin 10,000 Unit/10 Ml Vial IV 08/01/24 09:40 2,000 unit PRN PRN Administration Dialysis Heparin Sodium (Porcine) 5,000 unit 08/02/23 14:00 08/06/23 06:28 Heparin 5,000 Unit/Ml Vial SUBCUT 08/01/24 13:59 5,000 unit Q8HR KACI Administration Sodium Chloride 1,000 mls @ 0 mls/hr 08/01/23 10:32 08/04/23 18:05 0.9% Sodium Chloride 1,000 Ml MISCELLANE 07/31/24 10:31 Infused .Q0M PRN Infusion Dialysis As Directed Meropenem 0.5 gm in 100 mls @ 33.3 mls/hr 08/01/23 14:00 08/05/23 17:17 Merrem IV 08/07/23 17:01 Infused Q24H KACI Infusion Sodium Chloride 1,000 mls @ 0 mls/hr 08/02/23 09:41 08/02/23 23:01 0.9% Sodium Chloride 1,000 Ml MISCELLANE 08/01/24 09:40 Infused .Q0M PRN Infusion Dialysis As Directed Fentanyl 1,000 mcg in 100 mls @ 2.5 mls/hr 08/03/23 22:30 08/06/23 06:29 Fentanyl 1,000 Mcg/100 Ml D5w IV Not Given .Q24H KACI Protocol 25 MCG/HR Dexmedetomidine HCl 400 mcg/ 100 mls @ 4.84 mls/hr 08/05/23 10:15 08/06/23 07:43 Dextrose IV 08/04/24 10:14 1.5 mcg/kg/hr .[id number] KACI 36.3 mls/hr Administration Protocol 0.2 MCG/KG/HR Midazolam HCl 100 mg in 100 mls @ 1 mls/hr 08/05/23 23:00 08/05/23 23:30 Versed IV 02/01/24 22:59 3 mg/hr .Q24H KACI 3 mls/hr Titration Protocol 1 MG/HR Magnesium Sulfate 4 gm in 100 mls @ 25 mls/hr 08/06/23 09:20 Magnesium Sulf 4 Gm-*Swfi* IV 08/06/23 13:19 ONCE ONE Insulin Aspart 0 units 08/01/23 12:00 08/06/23 06:28 Insulin Aspart 300 Units/3 Ml Insuln.Pen SUBCUT 07/31/24 11:59 2 units Q6HR KACI Administration Protocol Magnesium Hydroxide 30 ml 08/03/23 22:14 Magnesium Hydroxide Susp 30 Ml Udc PO 08/02/24 22:13 DAILY PRN Constipation Midazolam HCl 4 mg 08/05/23 11:12 08/05/23 22:41 Midazolam/Pf 2 Mg/2 Ml Vial IV-PUSH 02/01/24 11:11 4 mg Q3H PRN Administration Agitation Pantoprazole Sodium 40 mg 08/01/23 09:00 08/06/23 08:42 Pantoprazole 40 Mg Vial IV-PUSH 07/31/24 08:59 40 mg DAILY KACI Administration Sennosides 8.8 mg 08/04/23 09:00 08/06/23 08:42 Sennosides Syrup 8.8 Mg/5 Ml Udc PO 08/03/24 08:59 8.8 mg BID KACI Administration Sodium Chloride 10 ml 08/01/23 08:07 08/06/23 08:43 Sodium Chloride 0.9 % 10 Ml Vial.Pf INJECTION 07/31/24 08:06 10 ml PRN PRN Administration Dilution Sodium Chloride 10 ml 08/01/23 08:07 08/01/23 08:49 Sodium Chloride 0.9 % 10 Ml Syringe IV-PUSH 07/31/24 08:06 10 ml PRN PRN Administration Flush Sodium Chloride 0 ml 08/01/23 10:32 08/05/23 17:19 Sodium Chloride 0.9 % 10 Ml Syringe IV-PUSH 07/31/24 10:31 10 ml PRN PRN Administration Flush Sodium Chloride 0 ml 08/02/23 09:41 08/04/23 16:49 Sodium Chloride 0.9 % 10 Ml Syringe IV-PUSH 08/01/24 09:40 40 ml PRN PRN Administration Flush Please note, the above section about medications has been auto inserted into my document by the EHR somehow and cannot be removed. I do not know why it brings information dating in from 08/01 and 08/03. It is impossible for me to delete this. Therefore kindly dis-regard. Assessment: Acute hypoxic respiratory failure. 13 days of ventilator use. Influenza A. Significant problems with mucus plugging. Need for tracheostomy. Tracheostomy placed on 08/12/2023. Recent hospital stay with diabetic foot with kim osteomyelitis, transmetatarsal amputation, and MSSA osteomyelitis. Diabetes mellitus type 2. Peripheral arterial disease with history of angioplasty left lower extremity in the past. History of hypertension. Progression to maintenance requiring end-stage renal disease. Lingering problem is encephalopathy. Additional problems likely include ICU related psychosis, sleep-wake cycle disruption, sleep deprivation, and lingering delirium. Plan: Continue Lantus 10 units subcutaneously every 12 hours tonight. Long-acting insulin may be needed to be uptitrated depending on hyperglycemia adriel reaches his goal rate on tube feeding Documented By: Geo Thomas DO [id number] Signed By: <Electronically signed by Geo Thomas DO> 08/14/23 0936 [facility] Work Phone: [phone]) 747-633203-20-2024 Progress note Author Geo Thomas [facility] August 13, 2023 8:46pm Note Date/Time August 13, 2023 8:4 6pm [facility] [address] [place] [address] Hospitalist Progress Note Signed Patient: Sudeep Diego JR MR#: [id number] : 1950 Acct:[id number] Age/Sex: 72 / M Adm Date: 4 Loc: Room: [address] [place] [address] Type: ADM IN Attending Dr: Geo Thomas DO Copies to: ~ Date of Service: 08/13/2023 Subjective Subjective Narrative: Today tube feeding was started on the nasogastric tube. He is on a renal formula. Right now he is at 10 mL an hour. Today in the middle of the daytime the patient did complain of pain at the tracheostomy site. Bedside nurse reports that fentanyl has been able to relievethe pain without causing any apparent sedation. When I come around this evening the patient is able to make eye contact with me. He is able to answer some simple yes and no questions. He continues to have delirium and encephalopathy and gazes away after short period of time. But thisis a big improvement, relatively speaking, compared to the way he was yesterday evening. Exam Physical Exam Vital Signs: Temp Pulse Resp BP Pulse Ox O2 Del Method O2 Flow Rate 100.6 F H 118 H 22 116/69 98 Mechanical Ventilation 35 08/13/23 20:00 08/13/23 20:00 08/13/23 20:00 08/13/23 20:00 08/13/23 20:00 08/13/23 20:00 08/13/23 08:00 FiO2 50 08/13/23 20:00 Narrative: General: Lightly sedated with Precedex. Tracheostomy site: This is good. No bleeding. No drainage Pulmonary: Rhonchorous breath sounds when auscultating anteriorly, but this is improved a little bit from yesterday. Cardiac: Mild sinus tachycardia on the monitor. No rubs or gallops to auscultation. GI: Abdomen is soft and nontender to palpation throughout. Normal bowel sounds to auscultation. Extremities: Sleeve compression devices on bilaterally and in good position. Minimal edema. : Santana does draining small amount of concentrated urine. No gross hematuria. Objective Lab Results 08/13/23 04:28 08/13/23 04:28 Microbiology Results Microbiology 08/13/23 14:18 Sputum - Endotrachael Gram Stain - Final 08/11/23 09:26 Blood - Left Antecubital Blood Culture - Preliminary No Growth 2 Days 08/11/23 09:25 Blood - Left Hand Blood Culture - Preliminary No Growth 2 Days 08/11/23 19:05 [place] Urine Culture - Preliminary Yeast, not Rajiv albicans 08/12/23 09:50 Sputum - Endotrachael Aerobic Culture - Preliminary Light Normal Respiratory Suyapa 1 Day 08/12/23 09:50 Sputum - Endotrachael Gram Stain - Final ABG Interpretation ABG results: 08/13/23 15:43 ABG pH 7.42 ABG pCO2 40.4 ABG pO2 71.0 L ABG HCO3 25.8 ABG Total CO2 27.0 ABG O2 Saturation 94.0 L ABG O2 Content 6.2 L ABG Base Excess 1.3 Meds Allergies and Active Meds Allergies cefepime Allergy (Unknown, Verified 07/10/23 18:46) Hives lisinopril Allergy (Unknown, Verified 07/10/23 18:46) Swelling of Lip/Tongue/Throat, SWELLING metformin Allergy (Unknown, Verified 07/10/23 18:46) Back Pain, KIDNEY PAIN Active Meds: Active Medications Generic Name Dose Route Start Last Admin Trade Name Rayq PRN Reason Stop Dose Admin Acetaminophen 650 mg 08/01/23 14:13 08/07/23 16:44 Acetaminophen 325 Mg Tablet PO 07/31/24 14:12 650 mg Q6H PRN Administration Pain Acetaminophen 650 mg 08/13/23 14:00 Acetaminophen 650 Mg/20.3 Ml Oral.Susp NG-TUBE 08/12/24 13:59 Q6H PRN Fever or Pain Albuterol 6 puff 08/01/23 12:00 08/13/23 17:16 Albuterol Hfa 200 Puff/18 Gm Inhaler VENT 07/31/24 11:59 6 puff Q6HR KACI Administration Amlodipine Besylate 5 mg 08/10/23 09:00 08/13/23 09:09 Amlodipine 5 Mg Tablet OG-TUBE 08/09/24 08:59 5 mg DAILY KACI Administration Darbepoetin Abisai 60 mcg 08/13/23 09:05 08/13/23 11:24 Darbepoetin Abisai In Polysorbat 60 Mcg/Ml Vial IV-PUSH 08/12/24 09:04 60 mcg QWEEK KACI Administration Protocol Dextrose 0 gm 08/01/23 08:05 Dextrose 50% In Water 25 Gm/50 Ml Syringe IV-PUSH 07/31/24 08:04 PRN PRN Hypoglycemia Docusate Sodium 100 mg 08/04/23 09:00 08/13/23 09:16 Docusate Liquid 100 Mg/10 Ml Udc PO 08/03/24 08:59 100 mg BID KACI Administration Fentanyl Citrate 50 mcg 08/13/23 14:00 08/13/23 18:01 Fentanyl/Pf 100 Mcg/2 Ml Vial IV-PUSH 50 mcg Q2H PRN Administration tracheostomy pain Ferric Sodium Gluconate Complex 62.5 mg 08/13/23 09:05 08/13/23 11:24 Sodium Ferric Gluconat/Sucrose 62.5 Mg/5 Ml Vial IV-PUSH 08/12/24 09:04 62.5 mg We@0900 KACI Administration Glucose 0 gm 08/01/23 08:05 Dextrose 40% Gel 15 Gm Tube PO 07/31/24 08:04 PRN PRN Hypoglycemia Heparin Sodium (Porcine) 2,000 unit 08/02/23 09:41 08/13/23 11:23 Heparin 10,000 Unit/10 Ml Vial IV 08/01/24 09:40 2,000 unit PRN PRN Administration Dialysis Heparin Sodium (Porcine) 5,000 unit 08/02/23 14:00 08/11/23 13:15 Heparin 5,000 Unit/Ml Vial SUBCUT 08/01/24 13:59 5,000 unit Q8HR KACI Administration Heparin Sodium (Porcine) 1,000 unit 08/06/23 10:46 08/13/23 11:23 Heparin 10,000 Unit/10 Ml Vial IV 08/05/24 10:45 1,000 unit PRN PRN Administration Dialysis Heparin Sodium (Porcine) 4,100 unit 08/08/23 14:33 08/13/23 11:24 Heparin 10,000 Unit/10 Ml Vial IV 08/07/24 14:32 4,100 unit PRN PRN Administration Dialysis Hydralazine HCl 10 mg 08/08/23 12:08 08/10/23 21:50 Hydralazine 20 Mg/Ml Vial IV-PUSH 08/07/24 12:07 10 mg Q4H PRN Administration Hypertension Sodium Chloride 1,000 mls @ 0 mls/hr 08/01/23 10:32 08/13/23 11:29 0.9% Sodium Chloride 1,000 Ml MISCELLANE 07/31/24 10:31 Infused .Q0M PRN Infusion Dialysis As Directed Sodium Chloride 1,000 mls @ 0 mls/hr 08/02/23 09:41 08/08/23 14:31 0.9% Sodium Chloride 1,000 Ml MISCELLANE 08/01/24 09:40 Infused .Q0M PRN Infusion Dialysis As Directed Dexmedetomidine HCl 400 mcg/ 100 mls @ 4.84 mls/hr 08/05/23 10:15 08/13/23 17:29 Dextrose IV 08/04/24 10:14 0.6 mcg/kg/hr .[id number] KACI 14.52 mls/hr Titration Protocol 0.2 MCG/KG/HR Meropenem 0.5 gm in 100 mls @ 33.333 mls/hr 08/13/23 16:30 08/13/23 17:18 Merrem IV 33.33 mls/hr Q24H KACI Administration Insulin Aspart 0 units 08/01/23 12:00 08/13/23 17:53 Insulin Aspart 300 Units/3 Ml Insuln.Pen SUBCUT 07/31/24 11:59 4 units Q6HR KACI Administration Protocol Insulin Glargine 10 units 08/13/23 21:00 Insulin Glargine 300 Units/3 Ml Insuln.Pen SUBCUT 08/12/24 20:59 BID KACI Lactulose 20 gm 08/13/23 21:00 Lactulose 20 Gm/30 Ml Udc PO 08/12/24 20:59 BID KACI Magnesium Hydroxide 30 ml 08/03/23 22:14 Magnesium Hydroxide Susp 30 Ml Udc PO 08/02/24 22:13 DAILY PRN Constipation Midazolam HCl 4 mg 08/07/23 12:34 08/08/23 13:00 Midazolam/Pf 2 Mg/2 Ml Vial IV-PUSH 4 mg ONCE PRN Administration sedation Pantoprazole Sodium 40 mg 08/01/23 09:00 08/13/23 09:08 Pantoprazole 40 Mg Vial IV-PUSH 07/31/24 08:59 40 mg DAILY KACI Administration Quetiapine Fumarate 50 mg 08/13/23 14:00 08/13/23 13:44 Quetiapine Fumarate 50 Mg Tablet PO 08/12/24 13:59 50 mg BID.9A.2P KACI Administration Sennosides 8.8 mg 08/04/23 09:00 08/13/23 09:16 Sennosides Syrup 8.8 Mg/5 Ml Udc PO 08/03/24 08:59 8.8 mg BID KACI Administration Sodium Chloride 10 ml 08/01/23 08:07 08/13/23 09:08 Sodium Chloride 0.9 % 10 Ml Vial.Pf INJECTION 07/31/24 08:06 10 ml PRN PRN Administration Dilution Sodium Chloride 10 ml 08/01/23 08:07 08/13/23 09:08 Sodium Chloride 0.9 % 10 Ml Syringe IV-PUSH 07/31/24 08:06 10 ml PRN PRN Administration Flush Sodium Chloride 0 ml 08/01/23 10:32 08/11/23 11:57 Sodium Chloride 0.9 % 10 Ml Syringe IV-PUSH 07/31/24 10:31 40 ml PRN PRN Administration Flush Sodium Chloride 0 ml 08/02/23 09:41 03/20/24 11:23 Sodium Chloride 0.9 % 10 Ml Syringe IV-PUSH 08/01/24 09:40 40 ml PRN PRN Administration Flush Vancomycin HCl 1 each 08/12/23 09:03 Vancomycin - Pharmacy Dosing 1 Each Miscell IV ONCE PRN ZZ.Pharmacy Consult A&P - Hospitalist Assessment/Plan (1) Acute hypoxic respiratory failure: (2) ESRD (end stage renal disease): (3) T2DM (type 2 diabetes mellitus): (4) Hyperlipemia: (5) HTN (hypertension): (6) PAD (peripheral artery disease): (7) Encephalopathy: (8) Anemia of renal disease: Plan Active Meds: Active Medications Generic Name Dose Route Start Last Admin Trade Name Freq PRN Reason Stop Dose Admin Acetaminophen 650 mg 08/01/23 14:13 08/05/23 22:20 Acetaminophen 325 Mg Tablet PO 07/31/24 14:12 650 mg Q6H PRN Administration Pain Albuterol 6 puff 08/01/23 12:00 08/06/23 05:05 Albuterol Hfa 200 Puff/18 Gm Inhaler VENT 07/31/24 11:59 6 puff Q6HR KACI Administration Chlorhexidine Gluconate 15 ml 08/01/23 09:00 08/06/23 08:42 Chlorhexidine Gluconate 0.12% 15 Ml Udc MUCOUS MEM 07/31/24 08:59 15 ml BID KACI Administration Dextrose 0 gm 08/01/23 08:05 Dextrose 50% In Water 25 Gm/50 Ml Syringe IV-PUSH 07/31/24 08:04 PRN PRN Hypoglycemia Docusate Sodium 100 mg 08/04/23 09:00 08/06/23 08:42 Docusate Liquid 100 Mg/10 Ml Udc PO 08/03/24 08:59 100 mg BID KACI Administration Fentanyl Citrate 50 mcg 08/02/23 09:44 08/03/23 21:01 Fentanyl/Pf 100 Mcg/2 Ml Vial IV-PUSH 50 mcg Q2H PRN Administration Pain Scale 4 - 7 Glucose 0 gm 08/01/23 08:05 Dextrose 40% Gel 15 Gm Tube PO 07/31/24 08:04 PRN PRN Hypoglycemia Heparin Sodium (Porcine) 2,000 unit 08/01/23 10:32 08/04/23 18:04 Heparin 10,000 Unit/10 Ml Vial IV 07/31/24 10:31 2,000 unit PRN PRN Administration Dialysis Heparin Sodium (Porcine) 500 unit 08/01/23 10:32 08/04/23 18:05 Heparin 10,000 Unit/10 Ml Vial IV 07/31/24 10:31 500 unit PRN PRN Administration Dialysis Heparin Sodium (Porcine) 2,000 unit 08/02/23 09:41 08/02/23 22:59 Heparin 10,000 Unit/10 Ml Vial IV 08/01/24 09:40 2,000 unit PRN PRN Administration Dialysis Heparin Sodium (Porcine) 5,000 unit 08/02/23 14:00 08/06/23 06:28 Heparin 5,000 Unit/Ml Vial SUBCUT 08/01/24 13:59 5,000 unit Q8HR KACI Administration Sodium Chloride 1,000 mls @ 0 mls/hr 08/01/23 10:32 08/04/23 18:05 0.9% Sodium Chloride 1,000 Ml MISCELLANE 07/31/24 10:31 Infused .Q0M PRN Infusion Dialysis As Directed Meropenem 0.5 gm in 100 mls @ 33.3 mls/hr 08/01/23 14:00 08/05/23 17:17 Merrem IV 08/07/23 17:01 Infused Q24H KACI Infusion Sodium Chloride 1,000 mls @ 0 mls/hr 08/02/23 09:41 08/02/23 23:01 0.9% Sodium Chloride 1,000 Ml MISCELLANE 08/01/24 09:40 Infused .Q0M PRN Infusion Dialysis As Directed Fentanyl 1,000 mcg in 100 mls @ 2.5 mls/hr 08/03/23 22:30 08/06/23 06:29 Fentanyl 1,000 Mcg/100 Ml D5w IV Not Given .Q24H KACI Protocol 25 MCG/HR Dexmedetomidine HCl 400 mcg/ 100 mls @ 4.84 mls/hr 08/05/23 10:15 08/06/23 07:43 Dextrose IV 08/04/24 10:14 1.5 mcg/kg/hr .[id number] KACI 36.3 mls/hr Administration Protocol 0.2 MCG/KG/HR Midazolam HCl 100 mg in 100 mls @ 1 mls/hr 08/05/23 23:00 08/05/23 23:30 Versed IV 02/01/24 22:59 3 mg/hr .Q24H KACI 3 mls/hr Titration Protocol 1 MG/HR Magnesium Sulfate 4 gm in 100 mls @ 25 mls/hr 08/06/23 09:20 Magnesium Sulf 4 Gm-*Swfi* IV 08/06/23 13:19 ONCE ONE Insulin Aspart 0 units 08/01/23 12:00 08/06/23 06:28 Insulin Aspart 300 Units/3 Ml Insuln.Pen SUBCUT 07/31/24 11:59 2 units Q6HR KACI Administration Protocol Magnesium Hydroxide 30 ml 08/03/23 22:14 Magnesium Hydroxide Susp 30 Ml Udc PO 08/02/24 22:13 DAILY PRN Constipation Midazolam HCl 4 mg 08/05/23 11:12 08/05/23 22:41 Midazolam/Pf 2 Mg/2 Ml Vial IV-PUSH 02/01/24 11:11 4 mg Q3H PRN Administration Agitation Pantoprazole Sodium 40 mg 08/01/23 09:00 08/06/23 08:42 Pantoprazole 40 Mg Vial IV-PUSH 07/31/24 08:59 40 mg DAILY KACI Administration Sennosides 8.8 mg 08/04/23 09:00 08/06/23 08:42 Sennosides Syrup 8.8 Mg/5 Ml Udc PO 08/03/24 08:59 8.8 mg BID KACI Administration Sodium Chloride 10 ml 08/01/23 08:07 08/06/23 08:43 Sodium Chloride 0.9 % 10 Ml Vial.Pf INJECTION 07/31/24 08:06 10 ml PRN PRN Administration Dilution Sodium Chloride 10 ml 08/01/23 08:07 08/01/23 08:49 Sodium Chloride 0.9 % 10 Ml Syringe IV-PUSH 07/31/24 08:06 10 ml PRN PRN Administration Flush Sodium Chloride 0 ml 08/01/23 10:32 08/05/23 17:19 Sodium Chloride 0.9 % 10 Ml Syringe IV-PUSH 07/31/24 10:31 10 ml PRN PRN Administration Flush Sodium Chloride 0 ml 08/02/23 09:41 08/04/23 16:49 Sodium Chloride 0.9 % 10 Ml Syringe IV-PUSH 08/01/24 09:40 40 ml PRN PRN Administration Flush Assessment: Acute hypoxic respiratory failure. 12 days of ventilator use. Influenza A. Significant problems with mucus plugging. Need for tracheostomy. Tracheostomy placed on 08/12/2023. Recent hospital stay with diabetic foot with kim osteomyelitis, transmetatarsal amputation, and MSSA osteomyelitis. Diabetes mellitus type 2. Peripheral arterial disease with history of angioplasty left lower extremity in the past. History of hypertension. Progression to maintenance requiring end-stage renal disease. Lingering problem is encephalopathy. Plan: Starting Lantus 10 units subcutaneously every 12 hours tonight. Treat this as tube feeding is advanced to maintain euglycemia. Documented By: Geo Thomas DO [id number] Signed By: <Electronically signed by Geo Thomas DO> 08/13/232045 [facility] Work Phone: 1(352) 686-915903-20-2024 Progress note Author Morales Mckeon [facility] August 13, 2023 3:17pm Note Date/Time August 13, 2023 3:1 7pm [facility] [address] [place] [address] Pulmonology Progress Note Signed Patient: Sudeep Diego JR MR#: [id number] : 1950 Acct:[id number] Age/Sex: 72 / M Adm Date: 4 Loc: Room: [address] [place] [address] Type: ADM IN Attending Dr: Geo Thomas DO Copies to: ~ Date of Service: 08/13/2023 Subjective Subjective Narrative: Patient is awake and following commands, tolerating PSV. He is postorchiectomy. Significant amount of purulent secretions coming out from tracheotomy. No vasopressors Laboratory data and images reviewed Exam Physical Exam Vital Signs: Temp Pulse Resp BP Pulse Ox O2 Del Method O2 Flow Rate 98.3 F 114 H 28 H 145/68 H 96 Trach Collar 35 08/13/23 12:00 08/13/23 14:02 08/13/23 14:02 08/13/23 14:00 08/13/23 14:00 08/13/23 14:00 08/13/23 08:00 FiO2 50 08/13/23 14:02 Narrative: Constitutional: Awake, on mechanical ventilation, on Precedex HEENT: EOMi, PERRL+, oral mucosa moist Cardiovascular: Regular rate and rhythm, tachycardiac Respiratory: Coarse breath sounds in both lungs. Chest is symmetric GI: soft abdomen, hypoactive bowel sounds Neuro: Opening eyes, following simple commands, slightly agitated, no gross motor deficits Extremities: left transmetatarsal amputee, no clear signs of infection Objective Intake and Output I&O - Last 24 Hours: Intake & Output 08/12/23 08/13/23 08/13/23 23:59 07:59 15:59 Intake Total 0 / 400 100 / 692 592 / 692 Output Total 245 / 2709 2464 / 2709 Balance - -145 / -2016 -1871 Weight 89.2 kg 88.3 kg Labs 08/13/23 04:28 08/13/23 04:28 Microbiology Micro: Microbiology 3 08/11/23 09:26 Blood Culture - Preliminary Blood - Left Antecubital No Growth 2 Days 08/11/23 09:25 Blood Culture - Preliminary Blood - Left Hand No Growth 2 Days 08/11/23 19:05 Urine Culture - Preliminary [place] Yeast, not Rajiv albicans 08/12/23 09:50 Aerobic Culture - Preliminary Sputum - Endotrachael Light Normal Respiratory Suy[place] 1 Day Gram Stain - Final Assessment/Plan Assessment/Plan (1) Acute hypoxic respiratory failure: (2) Acute pulmonary edema: (3) ESRD (end stage renal disease): (4) T2DM (type 2 diabetes mellitus): (5) PAD (peripheral artery disease): Plan Hospital day #12, ventilator day #12 Neurochecks per ICU Avoid sedatives Precedex/propofol for sedation Fentanyl as needed for analgesia Off vasopressors Maintain mean arterial pressure higher than 65 Switch to pressure support ventilation Continue broad spectrum antibiotics Repeat sputum culture Continue supportive care. Documented By: Morales Mckeon MD [id number] Signed By: <Electronically signed by Morales Mckeon MD> 08/13/231516 [facility] Work Phone: 1(606) 379-469303-20-2024 Progress note Author Rancho Kay [facility] August 13, 2023 11:29am Note Date/Time August 13, 2023 11: 29am [facility] [address] [place] [address] Nephrology Progress Note Signed Patient: Sudeep Diego JR MR#: [id number] : 1950 Acct:[id number] Age/Sex: 72 / M Adm Date: 4 Loc: Room: [address] [place] [address] Type: ADM IN Attending Dr: Geo Thomas DO Copies to: ~ Date of Service: 08/13/2023 Subjective Subjective Narrative: Mr. Diego is a 72-year-old male with history of DM2, HTN, PAD and prostate cancer. Patient was recently started on hemodialysis during his admission in June 2023 for SONYA possibly related to ATN versus Staph aureus glomerulonephritis. 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 Creatinine has increased up to 5 mg/dL with no evidence of recovery. [facility] was [facility] to [facility]. Patient presented to [facility] from his nursing facility with severe shortness of breath requiring intubation. Chest x-ray showed bilateral pulmonary infiltrate with possible pulmonary edema. Subsequently the patient was transferred to [facility] and he continues to be on vent. Respiratory swab showed evidence of influenza A. Patient is currently being treated for healthcare associated pneumonia with vancomycin and meropenem. Troponin was found to be elevated up to 1700. Hemoglobin was only 6.5 g/dL in setting of infection. Cardiology evaluated the patient and no intervention is planned at this point at the patient most likely has type II demand decreased cardiac perfusion. Nephrology was consulted for ESRD and dialysis. Interim History: Patient is being seen and examined at bedside during hemodialysis. Case was discussed with the bedside RN. Family was also present at bedside. He underwent a trach yesterday. HD RN reported that he is awake Exam Physical Exam Vital Signs: Temp Pulse Resp BP Pulse Ox O2 Del Method O2 Flow Rate 98.1 F 102 H 27 H 153/79 H 95 Trach Collar 35 08/13/23 08:00 08/13/23 11:16 08/13/23 10:25 08/13/23 11:16 08/13/23 10:25 08/13/23 10:25 08/13/23 09:00 FiO2 50 08/13/23 10:25 Narrative: General: Appears comfortable and not in distress Heart: S1-S2, no rub Lung: Bilateral air entry, no wheezing or crackles Abdomen: Soft, positive bowel sounds Extremities: No edema, no cyanosis Head: Atraumatic, normocephalic Ear: No external ear redness or tenderness Eyes: No pallor or redness Neck: No JVD or visible mass Skin: No rashes , warm to touch [employer]: Awake, alert, spontaneously shakes head and [id number]. Musculoskeletal: No joint swelling or limitation of movement Objective Intake and Output I&O: Intake & Output 08/10/23 08/11/23 08/12/23 08/13/23 23:59 23:59 23:59 23:59 Intake Total 920 / 920 1000 / 1000 400 / 400 100 / 100 Output Total 85 / 85 2564 / 2564 38 / 38 245 / 245 Balance 835 / 835 -1564 / -1564 362 / 362 -145 / -145 Weight 91.6 kg 92.3 kg 89.2 kg 88.3 kg Meds and Allergies Meds: Active Medications Acetaminophen (Acetaminophen 325 Mg Tablet) 650 mg PO Q6H PRN PRN Reason: Pain Stop: 07/31/24 14:12 Last Admin: 08/07/23 16:44 Dose: 650 mg Albuterol (Albuterol Hfa 200 Puff/18 Gm Inhaler) 6 puff VENT Q6HR [facility] Stop: 07/31/24 11:59 Last Admin: 08/13/23 05:48 Dose: 6 puff Amlodipine Besylate (Amlodipine 5 Mg Tablet) 5 mg OG-TUBE DAILY [facility] Stop: 08/09/24 08:59 Last Admin: 08/13/23 09:09 Dose: 5 mg Chlorhexidine Gluconate (Chlorhexidine Gluconate 0.12% 15 Ml Udc) 15 ml MUCOUS MEM BID [facility] Stop: 07/31/24 08:59 Last Admin: 08/12/23 22:38 Dose: 15 ml Darbepoetin Abisai (Darbepoetin Abisai In Polysorbat 60 Mcg/Ml Vial) 60 mcg IV- PUSHQWEEK [facility]; Protocol Stop: 08/12/24 09:04 Dextrose (Dextrose 50% In Water 25 Gm/50 Ml Syringe) 0 gm IV-PUSH PRN PRN PRN Reason: Hypoglycemia Stop: 07/31/24 08:04 Docusate Sodium (Docusate Liquid 100 Mg/10 Ml Udc) 100 mg PO BID KACI Stop: 08/03/24 08:59 Last Admin: 08/13/23 09:16 Dose: 100 mg Ferric Sodium Gluconate Complex (Sodium Ferric Gluconat/Sucrose 62.5 Mg/5 Ml Vial) 62.5 mg IV-PUSH We@0900 KACI Stop: 08/12/24 09:04 Glucose (Dextrose 40% Gel 15 Gm Tube) 0 gm PO PRN PRN PRN Reason: Hypoglycemia Stop: 07/31/24 08:04 Heparin Sodium (Porcine) (Heparin 10,000 Unit/10 Ml Vial) 2,000 unit IV PRN PRN PRN Reason: Dialysis Stop: 08/01/24 09:40 Last Admin: 08/11/23 11:58 Dose: 2,000 unit Heparin Sodium (Porcine) (Heparin 5,000 Unit/Ml Vial) 5,000 unit SUBCUT Q8HR KACI Stop: 08/01/24 13:59 Last Admin: 08/11/23 13:15 Dose: 5,000 unit Heparin Sodium (Porcine) (Heparin 10,000 Unit/10 Ml Vial) 1,000 unit IV PRN PRN PRN Reason: Dialysis Stop: 08/05/24 10:45 Last Admin: 08/11/23 11:58 Dose: 1,000 unit Heparin Sodium (Porcine) (Heparin 10,000 Unit/10 Ml Vial) 4,100 unit IV PRN PRN PRN Reason: Dialysis Stop: 08/07/24 14:32 Last Admin: 08/11/23 11:58 Dose: 4,100 unit Hydralazine HCl (Hydralazine 20 Mg/Ml Vial) 10 mg IV-PUSH Q4H PRN PRN Reason: Hypertension Stop: 08/07/24 12:07 Last Admin: 08/10/23 21:50 Dose: 10 mg Sodium Chloride (0.9% Sodium Chloride 1,000 Ml) 1,000 mls @ 0 mls/hr MISCELLANE.Q0M PRN PRN Reason: Dialysis Stop: 07/31/24 10:31 Last Infusion: 08/11/23 11:58 Dose: Infused Sodium Chloride (0.9% Sodium Chloride 1,000 Ml) 1,000 mls @ 0 mls/hr MISCELLANE.Q0M PRN PRN Reason: Dialysis Stop: 08/01/24 09:40 Last Infusion: 08/08/23 14:31 Dose: Infused Dexmedetomidine HCl 400 mcg/ (Dextrose) 100 mls @ 4.84 mls/hr IV .[id number] [facility]; Protocol Stop: 08/04/24 10:14 Last Titration: 08/13/23 11:16 Dose: 0.6 mcg/kg/hr, 14.52 mls/hr Midazolam HCl (Versed) 100 mg in 100 mls @ 1 mls/hr IV .Q24H [facility]; Protocol Stop: 02/01/24 22:59 Last Admin: 08/12/23 22:39 Dose: Not Given Meropenem (Merrem) 0.5 gm in 100 mls @ 33.333 mls/hr IV Q24H [facility] Insulin Aspart (Insulin Aspart 300 Units/3 Ml Insuln.Pen) 0 units SUBCUT Q6HR [facility]; Protocol Stop: 07/31/24 11:59 Last Admin: 08/13/23 06:34 Dose: 4 units Lactulose (Lactulose 20 Gm/30 Ml Udc) 20 gm PO BID [facility] Stop: 08/12/24 20:59 Magnesium Hydroxide (Magnesium Hydroxide Susp 30 Ml Udc) 30 ml PO DAILY PRN PRN Reason: Constipation Stop: 08/02/24 22:13 Midazolam HCl (Midazolam/Pf 2 Mg/2 Ml Vial) 4 mg IV-PUSH Q3H PRN PRN Reason: Agitation Stop: 02/01/24 11:11 Last Admin: 08/13/23 02:30 Dose: 4 mg Midazolam HCl (Midazolam/Pf 2 Mg/2 Ml Vial) 4 mg IV-PUSH ONCE PRN PRN Reason: sedation Last Admin: 08/08/23 13:00 Dose: 4 mg Pantoprazole Sodium (Pantoprazole 40 Mg Vial) 40 mg IV-PUSH DAILY [facility] Stop: 07/31/24 08:59 Last Admin: 08/13/23 09:08 Dose: 40 mg Quetiapine Fumarate (Quetiapine Fumarate 50 Mg Tablet) 50 mg PO BID.9A.2P [facility] Stop: 08/12/24 13:59 Sennosides (Sennosides Syrup 8.8 Mg/5 Ml Udc) 8.8 mg PO BID [facility] Stop: 08/03/24 08:59 Last Admin: 08/13/23 09:16 Dose: 8.8 mg Sodium Chloride (Sodium Chloride 0.9 % 10 Ml Vial.Pf) 10 ml INJECTION PRN PRN PRN Reason: Dilution Stop: 07/31/24 08:06 Last Admin: 08/13/23 09:08 Dose: 10 ml Sodium Chloride (Sodium Chloride 0.9 % 10 Ml Syringe) 10 ml IV-PUSH PRN PRN PRN Reason: Flush Stop: 07/31/24 08:06 Last Admin: 08/13/23 09:08 Dose: 10 ml Sodium Chloride (Sodium Chloride 0.9 % 10 Ml Syringe) 0 ml IV-PUSH PRN PRN PRN Reason: Flush Stop: 07/31/24 10:31 Last Admin: 08/11/23 11:57 Dose: 40 ml Sodium Chloride (Sodium Chloride 0.9 % 10 Ml Syringe) 0 ml IV-PUSH PRN PRN PRN Reason: Flush Stop: 08/01/24 09:40 Last Admin: 08/09/23 22:21 Dose: 10 ml Vancomycin HCl (Vancomycin - Pharmacy Dosing 1 Each Miscell) 1 each IV ONCE PRN PRN Reason: ZZ.Pharmacy Consult Allergies cefepime Allergy (Unknown, Verified 07/10/23 18:46) Hives lisinopril Allergy (Unknown, Verified 07/10/23 18:46) Swelling of Lip/Tongue/Throat, SWELLING metformin Allergy (Unknown, Verified 07/10/23 18:46) Back Pain, KIDNEY PAIN Results - Nephrology Labs 08/13/23 04:28 08/13/23 04:28 Labs: 08/13/23 04:28 BUN 66 H Creatinine 4.61 H D Radiology Impressions Impressions - last 24 hours: Impressions Foot CT 08/12/23 17:41 IMPRESSION: TRANSMETATARSAL AMPUTATION OF ALL TOES. DEGENERATIVE CHANGES. SOFT TISSUE CHANGES AT PATIENT'S STUMP, DESCRIBED. Impression dictated by: Pallavi Hernandez M.D.08/12/2023 7:39 PM Dictation Location: [place] [address] 08/12/23 17:45 IMPRESSION: BILATERAL PARENCHYMAL CHANGES, GREATER ON THE RIGHT AND PLEURAL EFFUSIONS, LARGER ON THE LEFT. TINY PERICARDIAL EFFUSION. GRANULOMATOUS CHANGES. PROBABLE RIGHT RENAL CYST. NO BOWEL OR URINARY TRACT OBSTRUCTION. DIVERTICULOSIS. BLADDER WALL THICKENING, PROBABLY DUE TO UNDERDISTENTION THOUGH CORRELATION IS SUGGESTED TO EXCLUDE ANY POSSIBILITY OF CYSTITIS. Impression dictated by: Pallavi Hernandez M.D.08/12/2023 7:30 PM Dictation Location: [place] [address] Abdomen X-Ray 08/12/23 19:56 IMPRESSION: NG TUBE AT THE PROXIMAL STOMACH. ADVANCEMENT IS SUGGESTED. Impression dictated by: Pallavi Hernandez M.D.08/12/2023 8:42 PM Dictation Location: [place] [address] Any impression(s) listed above is documentation that was entered by the reading physician into a diagnostic report(s) for Sudeep Diego JR. I have reviewed the report(s) and am incorporating any findings in the treatment plan of this patient where applicable. A&P - Nephrology Assessment/Plan (1) SONYA (acute kidney injury): Assessment/Problem Details: Patient developed SONYA during his previous admission on June 2023 with left foot infection and staph bacteremia with no evidence of recovery currently on dialysis. Baseline creatinine was 1.1 mg/dL. Patient gets dialysis on MWF schedule (2) Acute pulmonary edema: Assessment/Problem Details: Patient presents with shortness of breath and respiratory failure. Chest x-ray showed pulmonary congestion with evidence of bilateral infiltrate. 2D echo showed dilated IVC with abnormal collapsibility suggestive of volume overload (3) Acute hypoxic respiratory failure: Assessment/Problem Details: Patient has bilateral infiltrate on chest x-ray, respiratory swab was positive for influenza A. Patient is currently getting treatment for healthcare associated pneumonia as well since he has recent hospitalization (4) T2DM (type 2 diabetes mellitus): Assessment/Problem Details: He has insulin-dependent type 2 diabetes mellitus. He was taking insulin glargine at home. (5) Elevated troponin level not due to acute coronary syndrome: Assessment/Problem Details: He has a type II SD likely due to demand ischemia in setting of CHF and sepsis. (6) Anemia of renal disease: Assessment/Problem Details: He has anemia in the setting of SONYA with superimposed infection. Patient has elevated ferritin and low iron saturation in setting of infection. Plan * Hemodialysis today as ordered. * Continue empiric antibiotics for sepsis.. Pharmacy to dose medication based on ESRD status. * ANCA, and anti-GBM antibodies are negative. SUSANA positive for SLATE SPLITTER antibodies. Not sure about the clinical significant of these. Might have to do kidney biopsy when the patient is more stable. * Continue current dose of the amlodipine. His blood pressure is running high due to agitation. * Monitor H&H and transfuse as needed to keep the hemoglobin greater than 7.5 g/dL. * Vent management as directed by pulmonary service * Check renal function daily and monitor input output. Documented By: Rancho Kay MD 08/13/23 1123 Signed By: <Electronically signed by Rancho Kay MD> 08/13/23 1129 [facility] Work Phone: [phone] 222-393503-19-2024 Progress note Author Geo Thomas [facility] August 12, 2023 9:13pm Note Date/Time August 12, 2023 3:0 6pm [facility] [address] [place] [address] Hospitalist Progress Note Signed Patient: Sudeep Diego JR MR#: [id number] : 1950 Acct:[id number] Age/Sex: 72 / M Adm Date: 4 Loc: Room: [address] [place] [address] Type: ADM IN Attending Dr: Geo Thomas DO Copies to: ~ Date of Service: 08/12/2023 Subjective Subjective Narrative: Mr. Diego is ICU day #11, ventilator day #11 for respiratory failure secondary to Influenza A. Patient had an extubation failure on 08/09 and was reintubated due to mucus plugging and retention of secretions. Patient remains encephalopathic with restless and failure to follow commands. Pulmonology consulted and will perform tracheostomy today. Chest x-ray today showed improving parenchymal densities without pleural effusion and pneumothorax. EKG demonstrated sinus tachycardia. WBCs are increased from 22.5 to 40.8. He was started on empiric broad spectrum antibiotic treatment with Clindamycin and Meropenem. Respiratory (PCR) panel performed today detected Influenza A H3. Urinalysis showed proteinuria, leukocyte esterase, and negative nitrites. B-hydroxybutyrate is 1.50. Glucose is 256. Patient will be started on parenteral feeds today. Exam Physical Exam Vital Signs: Temp Pulse Resp BP Pulse Ox O2 Del Method O2 Flow Rate 99.9 F H 104 H 30 H 158/76 H 99 Mechanical Ventilation 35 08/12/23 08:00 08/12/23 11:00 08/12/23 11:00 08/12/23 11:00 08/12/23 11:00 08/12/23 11:00 08/12/23 08:00 FiO2 50 08/12/23 11:00 Narrative: Physical Exam: Constitutional: sedated with Precedex, appears restless HEENT: Cardiovascular: tachycardiac, no r/m/g Respiratory: crackles heard anteriorly GI: soft abdomen, hypoactive bowel sounds : Neuro: responds to name, unable to follow commands Extremities: warm to touch, no bruising noted, right pedal pulse is palpable, left transmetatarsal amputee, dressing is dry, intact, without drainage, stitches are intact Psych: Deferred due to ventilator Objective Lab Results 08/12/23 04:35 08/12/23 04:35 Microbiology Results Microbiology 08/12/23 09:56 Nasopharyngeal Respiratory Panel (PCR) - Final 08/11/23 09:26 Blood - Left Antecubital Blood Culture - Preliminary No Growth 1 Day 08/11/23 09:25 Blood - Left Hand Blood Culture - Preliminary No Growth 1 Day 08/11/23 19:05 [place] Urine Culture - Preliminary ABG Interpretation ABG results: 08/12/23 04:46 ABG pH 7.47 H ABG pCO2 31.3 L ABG pO2 55.4 L ABG HCO3 22.2 L ABG Total CO2 23.1 ABG O2 Saturation 88.9 L ABG O2 Content 6.2 L ABG Base Excess -0.9 Meds Allergies and Active Meds Allergies cefepime Allergy (Unknown, Verified 07/10/23 18:46) Hives lisinopril Allergy (Unknown, Verified 07/10/23 18:46) Swelling of Lip/Tongue/Throat, SWELLING metformin Allergy (Unknown, Verified 07/10/23 18:46) Back Pain, KIDNEY PAIN Active Meds: Active Medications Generic Name Dose Route Start Last Admin Trade Name Freq PRN Reason Stop Dose Admin Acetaminophen 650 mg 08/01/23 14:13 08/07/23 16:44 Acetaminophen 325 Mg Tablet PO 07/31/24 14:12 650 mg Q6H PRN Administration Pain Albuterol 6 puff 08/01/23 12:00 08/12/23 05:12 Albuterol Hfa 200 Puff/18 Gm Inhaler VENT 07/31/24 11:59 6 puff Q6HR [facility] Administration Amlodipine Besylate 5 mg 08/10/23 09:00 08/12/23 09:00 Amlodipine 5 Mg Tablet OG-TUBE 08/09/24 08:59 5 mg DAILY [facility] Administration Chlorhexidine Gluconate 15 ml 08/01/23 09:00 08/12/23 09:00 Chlorhexidine Gluconate 0.12% 15 Ml Udc MUCOUS MEM 07/31/24 08:59 15 ml BID [facility]I Administration Dextrose 0 gm 08/01/23 08:05 Dextrose 50% In Water 25 Gm/50 Ml Syringe IV-PUSH 07/31/24 08:04 PRN PRN Hypoglycemia Docusate Sodium 100 mg 08/04/23 09:00 08/12/23 09:00 Docusate Liquid 100 Mg/10 Ml Udc PO 08/03/24 08:59 100 mg BID [facility]ACI Administration Glucose 0 gm 08/01/23 08:05 Dextrose 40% Gel 15 Gm Tube PO 07/31/24 08:04 PRN PRN Hypoglycemia Heparin Sodium (Porcine) 2,000 unit 08/02/23 09:41 08/11/23 11:58 Heparin 10,000 Unit/10 Ml Vial IV 08/01/24 09:40 2,000 unit PRN PRN Administration Dialysis Heparin Sodium (Porcine) 5,000 unit 08/02/23 14:00 08/11/23 13:15 Heparin 5,000 Unit/Ml Vial SUBCUT 08/01/24 13:59 5,000 unit Q8HR [facility]I Administration Heparin Sodium (Porcine) 1,000 unit 08/06/23 10:46 08/11/23 11:58 Heparin 10,000 Unit/10 Ml Vial IV 08/05/24 10:45 1,000 unit PRN PRN Administration Dialysis Heparin Sodium (Porcine) 4,100 unit 08/08/23 14:33 08/11/23 11:58 Heparin 10,000 Unit/10 Ml Vial IV 08/07/24 14:32 4,100 unit PRN PRN Administration Dialysis Hydralazine HCl 10 mg 08/08/23 12:08 08/10/23 21:50 Hydralazine 20 Mg/Ml Vial IV-PUSH 08/07/24 12:07 10 mg Q4H PRN Administration Hypertension Sodium Chloride 1,000 mls @ 0 mls/hr 08/01/23 10:32 08/11/23 11:58 0.9% Sodium Chloride 1,000 Ml MISCELLANE 07/31/24 10:31 Infused .Q0M PRN Infusion Dialysis As Directed Sodium Chloride 1,000 mls @ 0 mls/hr 08/02/23 09:41 08/08/23 14:31 0.9% Sodium Chloride 1,000 Ml MISCELLANE 08/01/24 09:40 Infused .Q0M PRN Infusion Dialysis As Directed Dexmedetomidine HCl 400 mcg/ 100 mls @ 4.84 mls/hr 08/05/23 10:15 08/12/23 08:58 Dextrose IV 08/04/24 10:14 1 mcg/kg/hr .[id number] [facility] 24.2 mls/hr Administration Protocol 0.2 MCG/KG/HR Midazolam HCl 100 mg in 100 mls @ 1 mls/hr 08/05/23 23:00 08/12/23 01:46 Versed IV 02/01/24 22:59 Not Given .Q24H [facility] Protocol 1 MG/HR Clindamycin Phosphate 900 mg in 50 mls @ 100 mls/hr 08/12/23 15:00 Cleocin IV 08/12/23 15:29 PREOP ONE Meropenem 0.5 gm in 100 mls @ 33.333 mls/hr 08/13/23 16:30 Merrem IV Q24H [facility] Vancomycin HCl 1.75 gm/ 500 mls @ 285.714 mls/hr 08/12/23 10:00 08/12/23 10:24 Dextrose IV 08/12/23 11:44 285.71 mls/hr ONCE ONE Administration Insulin Aspart 0 units 08/01/23 12:00 08/12/23 06:26 Insulin Aspart 300 Units/3 Ml Insuln.Pen SUBCUT 07/31/24 11:59 5 units Q6HR [facility] Administration Protocol Magnesium Hydroxide 30 ml 08/03/23 22:14 Magnesium Hydroxide Susp 30 Ml Udc PO 08/02/24 22:13 DAILY PRN Constipation Metoclopramide HCl 5 mg 08/11/23 12:00 08/12/23 06:24 Metoclopramide 10 Mg/2 Ml Vial IV-PUSH 08/10/24 11:59 5 mg Q6HR [facility] Administration Midazolam HCl 4 mg 08/05/23 11:12 08/05/23 22:41 Midazolam/Pf 2 Mg/2 Ml Vial IV-PUSH 02/01/24 11:11 4 mg Q3H PRN Administration Agitation Midazolam HCl 4 mg 08/07/23 12:34 08/08/23 13:00 Midazolam/Pf 2 Mg/2 Ml Vial IV-PUSH 4 mg ONCE PRN Administration sedation Pantoprazole Sodium 40 mg 08/01/23 09:00 08/12/23 09:00 Pantoprazole 40 Mg Vial IV-PUSH 07/31/24 08:59 40 mg DAILY KACI Administration Sennosides 8.8 mg 08/04/23 09:00 08/12/23 09:00 Sennosides Syrup 8.8 Mg/5 Ml Udc PO 08/03/24 08:59 8.8 mg BID KACI Administration Sodium Chloride 10 ml 08/01/23 08:07 08/12/23 09:00 Sodium Chloride 0.9 % 10 Ml Vial.Pf INJECTION 07/31/24 08:06 10 ml PRN PRN Administration Dilution Sodium Chloride 10 ml 08/01/23 08:07 08/10/23 08:12 Sodium Chloride 0.9 % 10 Ml Syringe IV-PUSH 07/31/24 08:06 10 ml PRN PRN Administration Flush Sodium Chloride 0 ml 08/01/23 10:32 08/11/23 11:57 Sodium Chloride 0.9 % 10 Ml Syringe IV-PUSH 07/31/24 10:31 40 ml PRN PRN Administration Flush Sodium Chloride 0 ml 08/02/23 09:41 08/09/23 22:21 Sodium Chloride 0.9 % 10 Ml Syringe IV-PUSH 08/01/24 09:40 10 ml PRN PRN Administration Flush Vancomycin HCl 1 each 08/12/23 09:03 Vancomycin - Pharmacy Dosing 1 Each Miscell IV ONCE PRN ZZ.Pharmacy Consult A&P - Hospitalist Assessment/Plan (1) Acute hypoxic respiratory failure: (2) ESRD (end stage renal disease): (3) T2DM (type 2 diabetes mellitus): (4) Hyperlipemia: (5) HTN (hypertension): (6) PAD (peripheral artery disease): (7) Encephalopathy: (8) Anemia of renal disease: Plan Active Meds: Active Medications Generic Name Dose Route Start Last Admin Trade Name Rayq PRN Reason Stop Dose Admin Acetaminophen 650 mg 08/01/23 14:13 08/05/23 22:20 Acetaminophen 325 Mg Tablet PO 07/31/24 14:12 650 mg Q6H PRN Administration Pain Albuterol 6 puff 08/01/23 12:00 08/06/23 05:05 Albuterol Hfa 200 Puff/18 Gm Inhaler VENT 07/31/24 11:59 6 puff Q6HR KACI Administration Chlorhexidine Gluconate 15 ml 08/01/23 09:00 08/06/23 08:42 Chlorhexidine Gluconate 0.12% 15 Ml Udc MUCOUS MEM 07/31/24 08:59 15 ml BID KACI Administration Dextrose 0 gm 08/01/23 08:05 Dextrose 50% In Water 25 Gm/50 Ml Syringe IV-PUSH 07/31/24 08:04 PRN PRN Hypoglycemia Docusate Sodium 100 mg 08/04/23 09:00 08/06/23 08:42 Docusate Liquid 100 Mg/10 Ml Udc PO 08/03/24 08:59 100 mg BID KACI Administration Fentanyl Citrate 50 mcg 08/02/23 09:44 08/03/23 21:01 Fentanyl/Pf 100 Mcg/2 Ml Vial IV-PUSH 50 mcg Q2H PRN Administration Pain Scale 4 - 7 Glucose 0 gm 08/01/23 08:05 Dextrose 40% Gel 15 Gm Tube PO 07/31/24 08:04 PRN PRN Hypoglycemia Heparin Sodium (Porcine) 2,000 unit 08/01/23 10:32 08/04/23 18:04 Heparin 10,000 Unit/10 Ml Vial IV 07/31/24 10:31 2,000 unit PRN PRN Administration Dialysis Heparin Sodium (Porcine) 500 unit 08/01/23 10:32 08/04/23 18:05 Heparin 10,000 Unit/10 Ml Vial IV 07/31/24 10:31 500 unit PRN PRN Administration Dialysis Heparin Sodium (Porcine) 2,000 unit 08/02/23 09:41 08/02/23 22:59 Heparin 10,000 Unit/10 Ml Vial IV 08/01/24 09:40 2,000 unit PRN PRN Administration Dialysis Heparin Sodium (Porcine) 5,000 unit 08/02/23 14:00 08/06/23 06:28 Heparin 5,000 Unit/Ml Vial SUBCUT 08/01/24 13:59 5,000 unit Q8HR KACI Administration Sodium Chloride 1,000 mls @ 0 mls/hr 08/01/23 10:32 08/04/23 18:05 0.9% Sodium Chloride 1,000 Ml MISCELLANE 07/31/24 10:31 Infused .Q0M PRN Infusion Dialysis As Directed Meropenem 0.5 gm in 100 mls @ 33.3 mls/hr 08/01/23 14:00 08/05/23 17:17 Merrem IV 08/07/23 17:01 Infused Q24H KACI Infusion Sodium Chloride 1,000 mls @ 0 mls/hr 08/02/23 09:41 08/02/23 23:01 0.9% Sodium Chloride 1,000 Ml MISCELLANE 08/01/24 09:40 Infused .Q0M PRN Infusion Dialysis As Directed Fentanyl 1,000 mcg in 100 mls @ 2.5 mls/hr 08/03/23 22:30 08/06/23 06:29 Fentanyl 1,000 Mcg/100 Ml D5w IV Not Given .Q24H KACI Protocol 25 MCG/HR Dexmedetomidine HCl 400 mcg/ 100 mls @ 4.84 mls/hr 08/05/23 10:15 08/06/23 07:43 Dextrose IV 08/04/24 10:14 1.5 mcg/kg/hr .[id number] KACI 36.3 mls/hr Administration Protocol 0.2 MCG/KG/HR Midazolam HCl 100 mg in 100 mls @ 1 mls/hr 08/05/23 23:00 08/05/23 23:30 Versed IV 02/01/24 22:59 3 mg/hr .Q24H KACI 3 mls/hr Titration Protocol 1 MG/HR Magnesium Sulfate 4 gm in 100 mls @ 25 mls/hr 08/06/23 09:20 Magnesium Sulf 4 Gm-*Swfi* IV 08/06/23 13:19 ONCE ONE Insulin Aspart 0 units 08/01/23 12:00 08/06/23 06:28 Insulin Aspart 300 Units/3 Ml Insuln.Pen SUBCUT 07/31/24 11:59 2 units Q6HR KACI Administration Protocol Magnesium Hydroxide 30 ml 08/03/23 22:14 Magnesium Hydroxide Susp 30 Ml Udc PO 08/02/24 22:13 DAILY PRN Constipation Midazolam HCl 4 mg 08/05/23 11:12 08/05/23 22:41 Midazolam/Pf 2 Mg/2 Ml Vial IV-PUSH 02/01/24 11:11 4 mg Q3H PRN Administration Agitation Pantoprazole Sodium 40 mg 08/01/23 09:00 08/06/23 08:42 Pantoprazole 40 Mg Vial IV-PUSH 07/31/24 08:59 40 mg DAILY KACI Administration Sennosides 8.8 mg 08/04/23 09:00 08/06/23 08:42 Sennosides Syrup 8.8 Mg/5 Ml Udc PO 08/03/24 08:59 8.8 mg BID KACI Administration Sodium Chloride 10 ml 08/01/23 08:07 08/06/23 08:43 Sodium Chloride 0.9 % 10 Ml Vial.Pf INJECTION 07/31/24 08:06 10 ml PRN PRN Administration Dilution Sodium Chloride 10 ml 08/01/23 08:07 08/01/23 08:49 Sodium Chloride 0.9 % 10 Ml Syringe IV-PUSH 07/31/24 08:06 10 ml PRN PRN Administration Flush Sodium Chloride 0 ml 08/01/23 10:32 08/05/23 17:19 Sodium Chloride 0.9 % 10 Ml Syringe IV-PUSH 07/31/24 10:31 10 ml PRN PRN Administration Flush Sodium Chloride 0 ml 08/02/23 09:41 08/04/23 16:49 Sodium Chloride 0.9 % 10 Ml Syringe IV-PUSH 08/01/24 09:40 40 ml PRN PRN Administration Flush Assessment: Acute hypoxic respiratory failure. Influenza A. Need for tracheostomy. Tracheostomy placed today, 08/12/2023. Recent hospital stay with diabetic foot with kim osteomyelitis, transmetatarsal amputation, and MSSA osteomyelitis. Diabetes mellitus type 2. Peripheral arterial disease with history of angioplasty left lower extremity in the past. History of hypertension. Progression to maintenance requiring end-stage renal disease. Lingering problem is encephalopathy. Plan: The patient did get a tracheostomy today. Consider resuming tube feeding via the nasogastric tube tomorrow if okay with otolaryngology. Ongoing neurology, pulmonology/critical care and other specialty care. Documented By: Geo Thomas DO [id number] Signed By: <Electronically signed by Geo Thomas DO> 08/12/234 [facility] Work Phone: [phone]) 317-807803-19-2024 Progress note Author Morales Mckeon [facility] August 12, 2023 5:58pm Note Date/Time August 12, 2023 5:4 8pm [facility] [address] [place] [address] Pulmonology Progress Note Signed Patient: Sudeep Diego JR MR#: [id number] : 1950 Acct:[id number] Age/Sex: 72 / M Adm Date: 4 Loc: Room: [address] [place] [address] Type: ADM IN Attending Dr: Geo Thomas DO Copies to: ~ Date of Service: 08/12/2023 Subjective Subjective Narrative: Patient is slightly agitated, currently on Precedex. He remains on full mechanical ventilatory support. Requiring high amount of oxygen supplements. White blood cell count is higher than 40,000. No clear source of infection Exam Physical Exam Vital Signs: Temp Pulse Resp BP Pulse Ox O2 Del Method O2 Flow Rate 97.7 F 89 14 118/56 L 92 L Mechanical Ventilation 35 08/12/23 17:00 08/12/23 17:30 08/12/23 17:30 08/12/23 17:30 08/12/23 17:30 08/12/23 17:30 08/12/23 08:00 FiO2 50 08/12/23 17:30 Narrative: Constitutional: Slightly agitated, on Precedex HEENT: EOMi, PERRL+, oral mucosa moist Cardiovascular: Regular rate and rhythm, tachycardiac Respiratory: Coarse breath sounds in both lungs. Chest is symmetric GI: soft abdomen, hypoactive bowel sounds Neuro: Opening eyes, following simple commands, slightly agitated, no gross motor deficits Extremities: left transmetatarsal amputee, no clear signs of infection Objective Intake and Output I&O - Last 24 Hours: Intake & Output 08/12/23 08/12/23 08/12/23 07:59 15:59 23:59 Intake Total 200 / 400 200 / 400 Output Total Balance 185 / 372 187 / 372 Weight 89.2 kg 89.2 kg Labs 08/12/23 04:35 08/12/23 04:35 Microbiology Micro: Microbiology 3 08/12/23 09:50 Gram Stain - Final Sputum - Endotrachael 08/12/23 09:56 Respiratory Panel (PCR) - Final Nasopharyngeal 08/11/23 09:26 Blood Culture - Preliminary Blood - Left Antecubital No Growth 1 Day 08/11/23 09:25 Blood Culture - Preliminary Blood - Left Hand No Growth 1 Day 08/11/23 19:05 Urine Culture - Preliminary [place] Assessment/Plan Assessment/Plan (1) Acute hypoxic respiratory failure: (2) Acute pulmonary edema: (3) ESRD (end stage renal disease): (4) T2DM (type 2 diabetes mellitus): (5) PAD (peripheral artery disease): Plan Hospital day #11, ventilator day #11 Continue full mechanical deliver support Scheduled for tracheostomy today Broad spectrum antibiotics Follow-up cultures CT chest abdomen and pelvis CT left foot Continue supportive care. Documented By: Morales Mckeon MD [id number] Signed By: <Electronically signed by Morales Mckeon MD> 08/12/23 2655 [facility] Work Phone: [phone] 180-842703-19-2024 Consult note Author Tori Juan [facility] August 12, 2023 3:47pm Note Date/Time August 12, 2023 3:1 6pm [facility] [address] [place] [address] Podiatry Consult Note Signed Patient: Sudeep Diego JR MR#: [id number] : 1950 Acct:[id number] Age/Sex: 72 / M Adm Date: 4 Loc: Room: [address] [place] [address] Type: ADM IN Attending Dr: Geo Thomas DO Copies to: TOY Addison DO Marc Naderer, MD~ HPI Data of Consult Consult Date: 08/12/23 Requesting Physician: Geo Thomas DO Primary Care Provider: Tejas Stevens MD Consult Narrative Reason for consult: s/p transmetatarsal amputation left foot History of present illness: Mr. Diego is a 72 year old male who follows with Dr. Han and had TMA performed in end of June. Patient had a long hospital stay and ended up at rehab following. He came to [facility] using oxygen and was eventually intubated due to Influenza A. He is seen in the ICU and is currently intubated. Podiatry is consulted to re-evaluate wound and incision to the left foot with dehiscense. No other complaints. 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 Osteomyelitis Diabetic foot infection Diabetes mellitus due to underlying condition with [...] Hypertension Mother Diabetes History of stroke [facility] Problem: Diagnosed with Stroke Stroke Brother Cancer muscle Social History Smoking Status: Light tobacco smoker [...] 40 mg PO DAILY 01/13/23 [History Confirmed 08/01/23] clopidogrel 75 mg tablet (Plavix) 75 mg PO DAILY angioplasty left leg 3 months #90 tabs 01/13/23 [Rx Confirmed 08/01/23] duloxetine 60 mg capsule,delayed release 60 mg PO DAILY 01/13/23 [History Confirmed 08/01/23] flash glucose sensor (FreeStyle Shawn 2 Sensor kit) 01/13/23 [History Confirmed 07/16/23] metoprolol succinate 50 mg tablet,extended release 24 hr 50 mg PO DAILY 01/13/23[History Confirmed 08/01/23] insulin glargine 100 unit/mL (3 mL) subcutaneous pen (Basaglar KwikPen U-100 Insulin) 37 unit subcut 2XD 02/23/23 [History Confirmed 08/01/23] insulin lispro 100 unit/mL subcutaneous pen (Humalog KwikPen (U-100) Insulin) See Rx Instructions .Route .COMPLEX 02/23/23 [History Confirmed 08/01/23] amlodipine 10 mg tablet 10 mg PO DAILY #30 tabs 07/23/23 [Rx Confirmed 08/01/23] furosemide 80 mg tablet 80 mg PO BID@0800,1600 30 days #60 tabs 07/23/23 [Rx Confirmed 08/01/23] oxycodone 5 mg tablet 10 mg (2 x 5 mg) PO Q4H PRN Pain Scale 4 - 7 3 days #10 tabs 07/23/23 [Rx Confirmed 08/01/23] sennosides 8.6 mg-docusate sodium 50 mg tablet 2 tab PO BID #10 tabs 07/23/23 [Rx Confirmed 08/01/23] acetaminophen 325 mg capsule 650 mg (2 x 325 mg) PO Q4-6H PRN pain #30 caps 07/26/23 [Rx Confirmed 08/01/23] atorvastatin 40 mg tablet 40 mg PO QPM #0 tabs 07/26/23 [Rx Confirmed 08/01/23] baclofen 10 mg tablet 10 mg PO BID PRN muscle spams #10 tabs 07/26/23 [Rx Confirmed 08/01/23] gabapentin 300 mg capsule 300 mg PO QPM 30 days #30 caps 07/26/23 [Rx Confirmed 08/01/23] ondansetron 4 mg disintegrating tablet 4 - 8 mg (1 - 2 x 4 mg) PO Q6HR PRN nausea with dialysis #10 tabs 07/26/23 [Rx Confirmed 08/01/23] pantoprazole 40 mg tablet,delayed release 40 mg PO QAM 30 days #0 tabs 07/26/23 [Rx Confirmed 08/01/23] polyethylene glycol 3350 17 gram oral powder packet (HealthyLax) 17 g PO DAILY PRN Constipation #0 ea 07/26/23 [Rx Confirmed 08/01/23] Exam Physical Exam Vital Signs: Temp Pulse Resp BP Pulse Ox O2 Del Method O2 Flow Rate 99.9 F H 99 30 H 163/79 H 100 Mechanical Ventilation 35 08/12/23 12:00 08/12/23 13:54 08/12/23 13:30 08/12/23 13:54 08/12/23 13:00 08/12/23 13:00 08/12/23 08:00 FiO2 50 08/12/23 15:00 Narrative: General: Patient is unable to respond to questions due to intubation. Vascular: DP and PT pulses are barely palpable to the left lower extremity. There is no evidence of cellulitis, no streaking or warmth is noted. Dermatology: Patient has ulceration along the lateral aspect of the fifth ray atthe site of prior abscess which has fibrotic tissue base and is mostly dry. Theremaining incision along the distal aspect of the TMA site is well healed. There are very small areas of skin along the medial and central aspects butno evidence of deep opening, active drainage or concern for infection. Orthopedic: Patient has prior transmetatarsal amputation to the left lower extremity Results - Podiatry Labs 08/12/23 04:35 08/12/23 04:35 ESR 21 mm/hr (0-19) H 08/01/23 07:18 Microbiology Microbiology: Microbiology - Results from entire visit 08/12/23 09:50 Sputum - Endotrachael Gram Stain - Final 08/12/23 09:56 Nasopharyngeal Respiratory Panel (PCR) - Final 08/11/23 09:26 Blood - Left Antecubital Blood Culture - Preliminary No Growth 1 Day 08/11/23 09:25 Blood - Left Hand Blood Culture - Preliminary No Growth 1 Day 08/11/23 19:05 [place] Urine Culture - Preliminary 08/01/23 07:33 Blood - Right Antecubital Blood Culture - Final NO GROWTH 5 DAYS 08/01/23 07:40 Blood - Left Hand Blood Culture - Final NO GROWTH 5 DAYS 08/02/23 03:30 Urine - [place] Catheter Urine Culture - Final No Growth 2 Days 08/01/23 09:00 Sputum - Endotrachael Aerobic Culture - Final Rajiv dubliniensis 08/01/23 09:00 Sputum - Endotrachael Gram Stain - Final 08/01/23 09:30 Nasopharyngeal Respiratory Panel (PCR) - Final Assessment/Plan (1) Osteomyelitis of left foot: Plan: . Code(s): M86.9 - Osteomyelitis, unspecified (2) Ulcer of left foot: Plan: Patient underwent prior transmetatarsal amputation with Dr. Han in the end of June. He has been in rehab and subsequently at home was readmitted to the hospital due to respiratory issues from influenza A. He is currently intubated and seen in ICU. The left foot was evaluated and there was no evidence of significant infection. Patient does have a dry ulceration along the lateral aspect of the left foot but again there is no evidence of drainage, smell or concern for deep infection. Sutures were removed to the incision site along theleft foot. Dressing was ordered to apply Medihoney to the areas of dry skin andulcer to the lateral left foot. Patient's family was in the room and I did advise them once the patient is able to be ambulatory to try to reduce pressure along the end of the left foot to aid in healing with use of a surgical shoe. Dressing changes were ordered and patient will be followed every 3 to 5 days forrecheck while admitted. If there are any acute changes noted to the left foot then please readvise podiatry more urgently. Thank you for this consultation. Qualifiers: Non-pressure ulcer stage: with bone involvement without evidence of necrosis Qualified Code(s): L97.526 - Non-pressure chronic ulcer of other part of left foot with bone involvement without evidence of necrosis Code(s): L97.529 - Non-pressure chronic ulcer of other part of left foot with unspecifiedseverity Documented By: Tori Juan DPM 08/12/23 1 514 Signed By: <Electronically signed by TOY Juan> 08/12/23 6[address] [facility] Work Phone: [phone] [facility] August 12, 2023 1:02pm Note Date/Time August 12, 2023 1:0 2pm [facility] [address] [place] [address] Neurology Progress Note Signed Patient: Sudeep Diego JR MR#: [id number] : 1950 Acct:[id number] Age/Sex: 72 / M Adm Date: 4 Loc: Room: [address] [place] [address] Type: ADM IN Attending Dr: Geo Thomas DO Copies to: ~ Date of Service: 08/12/2023 Exam Physical Exam Vital Signs: Temp Pulse Resp BP Pulse Ox O2 Del Method O2 Flow Rate 99.9 F H 100 31 H 158/76 H 99 Mechanical Ventilation 35 08/12/23 12:00 08/12/23 12:00 08/12/23 12:00 08/12/23 12:00 08/12/23 12:00 08/12/23 12:00 08/12/23 12:00 FiO2 50 08/12/23 12:00 Objective Vital Signs Vital Signs: Vital Signs - 24 hr 08/11/23 13:00 08/11/23 13:00 08/11/23 13:00 Temperature Pulse Rate Pulse Rate [Bilateral Radial] Pulse Rate [Monitor] 108 H 106 H Respiratory Rate 34 H Blood Pressure Blood Pressure [Left Arm] 95/58 L 95/58 L 02 Sat by Pulse Oximetry 98 Oxygen Delivery Method Mechanical Ventilation Oxygen Flow Rate Fraction of Inspired Oxygen 40 40 08/11/23 13:44 08/11/23 14:00 08/11/23 14:00 Temperature Pulse Rate Pulse Rate [Bilateral Radial] Pulse Rate [Monitor] 110 H 112 H Respiratory Rate 32 H Blood Pressure Blood Pressure [Left Arm] 94/55 L 108/59 L 02 Sat by Pulse Oximetry 97 Oxygen Delivery Method Mechanical Ventilation Oxygen Flow Rate Fraction of Inspired Oxygen 40 40 08/11/23 14:01 08/11/23 15:00 08/11/23 15:00 Temperature 98.1 F Pulse Rate Pulse Rate [Bilateral Radial] Pulse Rate [Monitor] 112 H 106 H Respiratory Rate 34 H 30 H Blood Pressure Blood Pressure [Left Arm] 101/61 89/54 L 02 Sat by Pulse Oximetry 98 95 Oxygen Delivery Method Mechanical Ventilation Oxygen Flow Rate Fraction of Inspired Oxygen 40 40 40 08/11/23 16:00 08/11/23 16:00 08/11/23 17:00 Temperature Pulse Rate Pulse Rate [Bilateral Radial] Pulse Rate [Monitor] 118 H Respiratory Rate 28 H Blood Pressure Blood Pressure [Left Arm] 140/79 02 Sat by Pulse Oximetry 97 Oxygen Delivery Method Mechanical Ventilation Oxygen Flow Rate Fraction of Inspired Oxygen 40 40 40 08/11/23 17:00 08/11/23 18:00 08/11/23 18:00 Temperature 99.3 F H Pulse Rate Pulse Rate [Bilateral Radial] Pulse Rate [Monitor] 118 H 118 H Respiratory Rate 31 H 29 H Blood Pressure Blood Pressure [Left Arm] 124/66 129/65 02 Sat by Pulse Oximetry 96 93 L Oxygen Delivery Method Mechanical Ventilation Mechanical Ventilation Oxygen Flow Rate Fraction of Inspired Oxygen 40 40 40 08/11/23 19:00 08/11/23 20:00 08/11/23 20:00 Temperature 98.8 F Pulse Rate Pulse Rate [Bilateral Radial] Pulse Rate [Monitor] 118 H 118 H Respiratory Rate 27 H 27 H Blood Pressure Blood Pressure [Left Arm] 116/65 127/71 02 Sat by Pulse Oximetry 93 L 94 L Oxygen Delivery Method Mechanical Ventilation Mechanical Ventilation Oxygen Flow Rate Fraction of Inspired Oxygen 40 40 08/11/23 20:00 08/11/23 20:11 08/11/23 20:11 Temperature Pulse Rate 118 H 117 H Pulse Rate [Bilateral Radial] Pulse Rate [Monitor] Respiratory Rate Blood Pressure 127/71 127/71 Blood Pressure [Left Arm] 02 Sat by Pulse Oximetry Oxygen Delivery Method Mechanical Ventilation Oxygen Flow Rate Fraction of Inspired Oxygen 40 08/11/23 21:00 08/11/23 21:00 08/11/23 21:24 Temperature Pulse Rate 117 H Pulse Rate [Bilateral Radial] Pulse Rate [Monitor] 120 H Respiratory Rate 28 H 26 H Blood Pressure Blood Pressure [Left Arm] 131/70 02 Sat by Pulse Oximetry 94 L Oxygen Delivery Method Mechanical Ventilation Oxygen Flow Rate Fraction of Inspired Oxygen 40 40 40 08/11/23 22:00 08/11/23 22:00 08/11/23 23:00 Temperature Pulse Rate Pulse Rate [Bilateral Radial] Pulse Rate [Monitor] 121 H 121 H Respiratory Rate 26 H 28 H Blood Pressure Blood Pressure [Left Arm] 138/80 137/68 02 Sat by Pulse Oximetry 93 L 94 L Oxygen Delivery Method Mechanical Ventilation Oxygen Flow Rate Fraction of Inspired Oxygen 40 40 40 08/11/23 23:00 08/11/23 23:39 08/12/23 00:00 Temperature Pulse Rate 121 H Pulse Rate [Bilateral Radial] Pulse Rate [Monitor] 122 H Respiratory Rate 28 H 28 H Blood Pressure Blood Pressure [Left Arm] 163/103 H 02 Sat by Pulse Oximetry 94 L Oxygen Delivery Method Mechanical Ventilation Oxygen Flow Rate Fraction of Inspired Oxygen 40 40 40 08/12/23 00:00 08/12/23 00:34 08/12/23 00:34 Temperature Pulse Rate 123 H 123 H Pulse Rate [Bilateral Radial] Pulse Rate [Monitor] Respiratory Rate Blood Pressure 163/103 H 163/103 H Blood Pressure [Left Arm] 02 Sat by Pulse Oximetry Oxygen Delivery Method Oxygen Flow Rate Fraction of Inspired Oxygen 40 08/12/23 01:00 08/12/23 01:00 08/12/23 02:00 Temperature Pulse Rate Pulse Rate [Bilateral Radial] Pulse Rate [Monitor] 123 H 124 H Respiratory Rate 28 H 28 H Blood Pressure Blood Pressure [Left Arm] 159/75 H 152/74 H 02 Sat by Pulse Oximetry 94 L 95 Oxygen Delivery Method Mechanical Ventilation Oxygen Flow Rate Fraction of Inspired Oxygen 40 40 40 08/12/23 02:00 08/12/23 03:00 08/12/23 03:00 Temperature Pulse Rate Pulse Rate [Bilateral Radial] Pulse Rate [Monitor] 124 H Respiratory Rate 27 H Blood Pressure Blood Pressure [Left Arm] 149/75 H 02 Sat by Pulse Oximetry 94 L Oxygen Delivery Method Mechanical Ventilation Oxygen Flow Rate Fraction of Inspired Oxygen 40 40 40 08/12/23 04:00 08/12/23 04:00 08/12/23 05:00 Temperature 98.4 F Pulse Rate Pulse Rate [Bilateral Radial] Pulse Rate [Monitor] 124 H Respiratory Rate 28 H Blood Pressure Blood Pressure [Left Arm] 146/75 H 02 Sat by Pulse Oximetry 96 Oxygen Delivery Method Mechanical Ventilation Oxygen Flow Rate Fraction of Inspired Oxygen 40 40 40 08/12/23 05:00 08/12/23 05:12 08/12/23 06:00 Temperature Pulse Rate 123 H Pulse Rate [Bilateral Radial] Pulse Rate [Monitor] 123 H Respiratory Rate 28 H 34 H Blood Pressure Blood Pressure [Left Arm] 151/70 H 02 Sat by Pulse Oximetry 95 Oxygen Delivery Method Mechanical Ventilation Oxygen Flow Rate Fraction of Inspired Oxygen 40 40 40 08/12/23 06:00 08/12/23 06:25 08/12/23 06:25 Temperature Pulse Rate 120 H 120 H Pulse Rate [Bilateral Radial] Pulse Rate [Monitor] 120 H Respiratory Rate 28 H Blood Pressure 149/72 H 149/72 H Blood Pressure [Left Arm] 149/72 H 02 Sat by Pulse Oximetry 96 Oxygen Delivery Method Oxygen Flow Rate Fraction of Inspired Oxygen 40 08/12/23 07:00 08/12/23 07:00 08/12/23 08:00 Temperature Pulse Rate Pulse Rate [Bilateral Radial] Pulse Rate [Monitor] 105 H Respiratory Rate 28 H Blood Pressure Blood Pressure [Left Arm] 139/69 02 Sat by Pulse Oximetry 92 L Oxygen Delivery Method Mechanical Ventilation Oxygen Flow Rate Fraction of Inspired Oxygen 40 40 40 08/12/23 08:00 08/12/23 08:00 08/12/23 08:00 Temperature 99.9 F H Pulse Rate Pulse Rate [Bilateral Radial] 104 H Pulse Rate [Monitor] Respiratory Rate 27 H Blood Pressure Blood Pressure [Left Arm] 106/57 L 02 Sat by Pulse Oximetry 99 Oxygen Delivery Method Mechanical Ventilation Mechanical Ventilation Mechanical Ventilation Oxygen Flow Rate 35 35 Fraction of Inspired Oxygen 40 40 40 08/12/23 08:58 08/12/23 08:58 08/12/23 09:00 Temperature Pulse Rate 112 H 112 H Pulse Rate [Bilateral Radial] Pulse Rate [Monitor] Respiratory Rate Blood Pressure 106/57 L 106/57 L Blood Pressure [Left Arm] 02 Sat by Pulse Oximetry Oxygen Delivery Method Oxygen Flow Rate Fraction of Inspired Oxygen 40 08/12/23 09:00 08/12/23 09:10 08/12/23 09:22 Temperature Pulse Rate 112 H Pulse Rate [Bilateral Radial] Pulse Rate [Monitor] 112 H Respiratory Rate 33 H 30 H Blood Pressure Blood Pressure [Left Arm] 143/68 H 02 Sat by Pulse Oximetry 99 Oxygen Delivery Method Mechanical Ventilation Oxygen Flow Rate Fraction of Inspired Oxygen 50 35 50 08/12/23 10:00 08/12/23 10:00 08/12/23 11:00 Temperature Pulse Rate Pulse Rate [Bilateral Radial] Pulse Rate [Monitor] 112 H Respiratory Rate 34 H Blood Pressure Blood Pressure [Left Arm] 160/81 H 02 Sat by Pulse Oximetry 98 Oxygen Delivery Method Mechanical Ventilation Oxygen Flow Rate Fraction of Inspired Oxygen 50 50 50 08/12/23 11:00 08/12/23 12:00 08/12/23 12:00 Temperature 99.9 F H Pulse Rate Pulse Rate [Bilateral Radial] Pulse Rate [Monitor] 104 H 100 Respiratory Rate 30 H 31 H Blood Pressure Blood Pressure [Left Arm] 158/76 H 158/76 H 02 Sat by Pulse Oximetry 99 99 Oxygen Delivery Method Mechanical Ventilation Mechanical Ventilation Oxygen Flow Rate 35 Fraction of Inspired Oxygen 50 50 40 08/12/23 12:00 Temperature Pulse Rate Pulse Rate [Bilateral Radial] Pulse Rate [Monitor] Respiratory Rate Blood Pressure Blood Pressure [Left Arm] 02 Sat by Pulse Oximetry Oxygen Delivery Method Mechanical Ventilation Oxygen Flow Rate Fraction of Inspired Oxygen 50 Labs 08/12/23 04:35 08/12/23 04:35 Assessment/Plan (1) Encephalopathy: Assessment/Problem Details: CONSULT REASON: Encephalopathy SUBJECTIVE: Intubated and on Precedex. Cannot obtain history or ROS. Planned tracheostomy this afternoon. Big increase in leukocytosis. EXAMINATION: Intubated. Precedex running; no other sedation/analgesia. Spontaneously shakes head back and forth. Eyes spontaneously open. No meaningful eye contact. Oculocephalic responses intact. Corneal reflexes intact. Pupils small and equal. No spontaneous limb movements. No limb movements to noxious stimuli. No Harrison signs or Babinsky signs. DATA REVIEW: -Head CT August 06, 2023 is without acute findings. -MRI brain personally reviewed, radiology report pending. I see a 1 cm right parafalcine lesion that is a meningioma -Routine EEG 08/07/23 normal ASSESSMENT: Persistent encephalopathy despite gradual decreases of sedating medication. Was thought to be metabolic or related to infection - still with azotemia and risingleukocytosis. Head CT was without any evidence of acute or concerning findings. Routine EEG looked normal. MRI is without any explanatory findings. Brainstem seems intact. No spontaneous movements of limbs and no limb response to noxious stimuli. PLAN: Repeat routine EEG. Will follow. Plan: Plan Documented By: Pravin Rivers DO 08/12/23 1253 Signed By: <Electronically signed by Pravin Rivers DO> 08/12/23 1307 [facility] Work Phone: [phone] Progress note Author Rancho Kay [facility] August 12, 2023 12:39pm Note Date/Time August 12, 2023 12: 39pm [facility] [address] [place] [address] Nephrology Progress Note Signed Patient: Sudeep Diego JR MR#: [id number] : 1950 Acct:[id number] Age/Sex: 72 / M Adm Date: 4 Loc: Room: [address] [place] [address] Type: ADM IN Attending Dr: Geo Thomas DO Copies to: ~ Date of Service: 08/12/2023 Subjective Subjective Narrative: Mr. Diego is a 72-year-old male with history of DM2, HTN, PAD and prostate cancer. Patient was recently started on hemodialysis during his admission in June 2023 for SONYA possibly related to ATN versus Staph aureus glomerulonephritis. 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 Creatinine has increased up to 5 mg/dL with no evidence of recovery. [facility] to [facility]. Patient presented to [facility] from his nursing facility with severe shortness of breath requiring intubation. Chest x-ray showed bilateral pulmonary infiltrate with possible pulmonary edema. Subsequently the patient was transferred to [facility] and he continues to be on vent. Respiratory swab showed evidence of influenza A. Patient is currently being treated for healthcare associated pneumonia with vancomycin and meropenem. Troponin was found to be elevated up to 1700. Hemoglobin was only 6.5 g/dL in setting of infection. Cardiology evaluated the patient and no intervention is planned at this point at the patient most likely has type II demand decreased cardiac perfusion. Nephrology was consulted for ESRD and dialysis. Interval history: Patient is being seen and examined at bedside in the ICU. Case was discussed with the bedside RN. She reported patient was put on CPAP trial by the ICU team. He is scheduled to have a trach later this evening. Exam Physical Exam Vital Signs: Temp Pulse Resp BP Pulse Ox O2 Del Method O2 Flow Rate 99.9 F H 100 31 H 158/76 H 99 Mechanical Ventilation 35 08/12/23 12:00 08/12/23 12:00 08/12/23 12:00 08/12/23 12:00 08/12/23 12:00 08/12/23 12:00 08/12/23 12:00 FiO2 50 08/12/23 12:00 Narrative: General: Appears comfortable and not in distress Heart: S1-S2, no rub Lung: Bilateral air entry, no wheezing or crackles Abdomen: Soft, positive bowel sounds Extremities: No edema, no cyanosis Head: Atraumatic, normocephalic Ear: No external ear redness or tenderness Eyes: No pallor or redness Neck: No JVD or visible mass Skin: No rashes , warm to touch [employer]: Intubated and sedated. Musculoskeletal: No joint swelling or limitation of movement Objective Intake and Output I&O: Intake & Output 08/09/23 08/10/23 08/11/23 08/12/23 23:59 23:59 23:59 23:59 Intake Total 730 / 730 920 / 920 1000 / 1000 300 / 300 Output Total 85 / 85 2564 / 2564 15 Balance 700 / 700 835 / 835 -1564 / -1564 285 / 285 Weight 90.8 kg 91.6 kg 92.3 kg 89.2 kg Meds and Allergies Meds: Active Medications Acetaminophen (Acetaminophen 325 Mg Tablet) 650 mg PO Q6H PRN PRN Reason: Pain Stop: 07/31/24 14:12 Last Admin: 08/07/23 16:44 Dose: 650 mg Albuterol (Albuterol Hfa 200 Puff/18 Gm Inhaler) 6 puff VENT Q6HR KACI Stop: 07/31/24 11:59 Last Admin: 08/12/23 05:12 Dose: 6 puff Amlodipine Besylate (Amlodipine 5 Mg Tablet) 5 mg OG-TUBE DAILY KACI Stop: 08/09/24 08:59 Last Admin: 08/12/23 09:00 Dose: 5 mg Chlorhexidine Gluconate (Chlorhexidine Gluconate 0.12% 15 Ml Udc) 15 ml MUCOUS MEM BID KACI Stop: 07/31/24 08:59 Last Admin: 08/12/23 09:00 Dose: 15 ml Dextrose (Dextrose 50% In Water 25 Gm/50 Ml Syringe) 0 gm IV-PUSH PRN PRN PRN Reason: Hypoglycemia Stop: 07/31/24 08:04 Docusate Sodium (Docusate Liquid 100 Mg/10 Ml Udc) 100 mg PO BID KACI Stop: 08/03/24 08:59 Last Admin: 08/12/23 09:00 Dose: 100 mg Glucose (Dextrose 40% Gel 15 Gm Tube) 0 gm PO PRN PRN PRN Reason: Hypoglycemia Stop: 07/31/24 08:04 Heparin Sodium (Porcine) (Heparin 10,000 Unit/10 Ml Vial) 2,000 unit IV PRN PRN PRN Reason: Dialysis Stop: 08/01/24 09:40 Last Admin: 08/11/23 11:58 Dose: 2,000 unit Heparin Sodium (Porcine) (Heparin 5,000 Unit/Ml Vial) 5,000 unit SUBCUT Q8HR KACI Stop: 08/01/24 13:59 Last Admin: 08/11/23 13:15 Dose: 5,000 unit Heparin Sodium (Porcine) (Heparin 10,000 Unit/10 Ml Vial) 1,000 unit IV PRN PRN PRN Reason: Dialysis Stop: 08/05/24 10:45 Last Admin: 08/11/23 11:58 Dose: 1,000 unit Heparin Sodium (Porcine) (Heparin 10,000 Unit/10 Ml Vial) 4,100 unit IV PRN PRN PRN Reason: Dialysis Stop: 08/07/24 14:32 Last Admin: 08/11/23 11:58 Dose: 4,100 unit Hydralazine HCl (Hydralazine 20 Mg/Ml Vial) 10 mg IV-PUSH Q4H PRN PRN Reason: Hypertension Stop: 08/07/24 12:07 Last Admin: 08/10/23 21:50 Dose: 10 mg Sodium Chloride (0.9% Sodium Chloride 1,000 Ml) 1,000 mls @ 0 mls/hr MISCELLANE.Q0M PRN PRN Reason: Dialysis Stop: 07/31/24 10:31 Last Infusion: 08/11/23 11:58 Dose: Infused Sodium Chloride (0.9% Sodium Chloride 1,000 Ml) 1,000 mls @ 0 mls/hr MISCELLANE.Q0M PRN PRN Reason: Dialysis Stop: 08/01/24 09:40 Last Infusion: 08/08/23 14:31 Dose: Infused Dexmedetomidine HCl 400 mcg/ (Dextrose) 100 mls @ 4.84 mls/hr IV .[id number] [facility]; Protocol Stop: 08/04/24 10:14 Last Admin: 08/12/23 08:58 Dose: 1 mcg/kg/hr, 24.2 mls/hr Midazolam HCl (Versed) 100 mg in 100 mls @ 1 mls/hr IV .Q24H [facility]; Protocol Stop: 02/01/24 22:59 Last Admin: 08/12/23 01:46 Dose: Not Given Clindamycin Phosphate (Cleocin) 900 mg in 50 mls @ 100 mls/hr IV PREOP ONE Stop: 08/12/23 15:29 Meropenem (Merrem) 0.5 gm in 100 mls @ 33.333 mls/hr IV Q24H [facility] Insulin Aspart (Insulin Aspart 300 Units/3 Ml Insuln.Pen) 0 units SUBCUT Q6HR [facility]; Protocol Stop: 07/31/24 11:59 Last Admin: 08/12/23 12:03 Dose: 14 units Magnesium Hydroxide (Magnesium Hydroxide Susp 30 Ml Udc) 30 ml PO DAILY PRN PRN Reason: Constipation Stop: 08/02/24 22:13 Metoclopramide HCl (Metoclopramide 10 Mg/2 Ml Vial) 5 mg IV-PUSH Q6HR [facility] Stop: 08/10/24 11:59 Last Admin: 08/12/23 06:24 Dose: 5 mg Midazolam HCl (Midazolam/Pf 2 Mg/2 Ml Vial) 4 mg IV-PUSH Q3H PRN PRN Reason: Agitation Stop: 02/01/24 11:11 Last Admin: 08/05/23 22:41 Dose: 4 mg Midazolam HCl (Midazolam/Pf 2 Mg/2 Ml Vial) 4 mg IV-PUSH ONCE PRN PRN Reason: sedation Last Admin: 08/08/23 13:00 Dose: 4 mg Pantoprazole Sodium (Pantoprazole 40 Mg Vial) 40 mg IV-PUSH DAILY KACI Stop: 07/31/24 08:59 Last Admin: 08/12/23 09:00 Dose: 40 mg Sennosides (Sennosides Syrup 8.8 Mg/5 Ml Udc) 8.8 mg PO BID [facility] Stop: 08/03/24 08:59 Last Admin: 08/12/23 09:00 Dose: 8.8 mg Sodium Chloride (Sodium Chloride 0.9 % 10 Ml Vial.Pf) 10 ml INJECTION PRN PRN PRN Reason: Dilution Stop: 07/31/24 08:06 Last Admin: 08/12/23 09:00 Dose: 10 ml Sodium Chloride (Sodium Chloride 0.9 % 10 Ml Syringe) 10 ml IV-PUSH PRN PRN PRN Reason: Flush Stop: 07/31/24 08:06 Last Admin: 08/12/23 11:46 Dose: 10 ml Sodium Chloride (Sodium Chloride 0.9 % 10 Ml Syringe) 0 ml IV-PUSH PRN PRN PRN Reason: Flush Stop: 07/31/24 10:31 Last Admin: 08/11/23 11:57 Dose: 40 ml Sodium Chloride (Sodium Chloride 0.9 % 10 Ml Syringe) 0 ml IV-PUSH PRN PRN PRN Reason: Flush Stop: 08/01/24 09:40 Last Admin: 08/09/23 22:21 Dose: 10 ml Vancomycin HCl (Vancomycin - Pharmacy Dosing 1 Each Miscell) 1 each IV ONCE PRN PRN Reason: ZZ.Pharmacy Consult Allergies cefepime Allergy (Unknown, Verified 07/10/23 18:46) Hives lisinopril Allergy (Unknown, Verified 07/10/23 18:46) Swelling of Lip/Tongue/Throat, SWELLING metformin Allergy (Unknown, Verified 07/10/23 18:46) Back Pain, KIDNEY PAIN Results - Nephrology Labs 08/12/23 04:35 08/12/23 04:35 Labs: 08/11/23 08/12/23 19:05 04:35 BUN 51 H Creatinine 3.80 H Urine Color Dark yellow A Urine Appearance Turbid A Urine pH 5.0 Ur Specific [place] 1.027 Urine Protein 300 H Urine Glucose (UA) Normal Urine Ketones Trace H Urine Occult Blood 1+ H Urine Nitrite Negative Ur Leukocyte Esterase 3+ H Urine RBC 3-4 Urine WBC 50-100 H Urine Bacteria 1+ H Radiology Impressions Impressions - last 24 hours: Impressions Chest X-Ray 08/12/23 05:00 IMPRESSION: Improving parenchymal densities. Impression dictated by: Dhruv Conroy M.D.08/12/2023 7:44 AM Dictation Location: [place] [address] Any impression(s) listed above is documentation that was entered by the reading physician into a diagnostic report(s) for Sudeep Diego JR. I have reviewed the report(s) and am incorporating any findings in the treatment plan of this patient where applicable. A&P - Nephrology Assessment/Plan (1) SONYA (acute kidney injury): Assessment/Problem Details: Patient developed SONYA during his previous admission on June 2023 with left foot infection and staph bacteremia with no evidence of recovery currently on dialysis. Baseline creatinine was 1.1 mg/dL. Patient gets dialysis on MWF schedule (2) Acute pulmonary edema: Assessment/Problem Details: Patient presents with shortness of breath and respiratory failure. Chest x-ray showed pulmonary congestion with evidence of bilateral infiltrate. 2D echo showed dilated IVC with abnormal collapsibility suggestive of volume overload (3) Acute hypoxic respiratory failure: Assessment/Problem Details: Patient has bilateral infiltrate on chest x-ray, respiratory swab was positive for influenza A. Patient is currently getting treatment for healthcare associated pneumonia as well since he has recent hospitalization (4) T2DM (type 2 diabetes mellitus): Assessment/Problem Details: He has insulin-dependent type 2 diabetes mellitus. He was taking insulin glargine at home. (5) Elevated troponin level not due to acute coronary syndrome: Assessment/Problem Details: He has a type II SD likely due to demand ischemia in setting of CHF and sepsis. (6) Anemia of renal disease: Assessment/Problem Details: He has anemia in the setting of SONYA with superimposed infection. Patient has elevated ferritin and low iron saturation in setting of infection. Plan * No need for dialysis today. Next dialysis will be tomorrow if needed. * Continue empiric antibiotics for sepsis.. Pharmacy to dose medication based on ESRD status. * ANCA, and anti-GBM antibodies are negative. SUSANA positive for SLATE SPLITTER antibodies. Not sure about the clinical significant of these. Might have to do kidney biopsy when the patient is more stable. * Continue current dose of the amlodipine. His blood pressure is running high due to agitation. * Monitor H&H and transfuse as needed to keep the hemoglobin greater than 7.5 g/dL. * Vent management as directed by pulmonary service * Check renal function daily and monitor input output. Documented By: Rancho Kay MD 08/12/23 1235 Signed By: <Electronically signed by Rancho Kay MD> 08/12/23 1236 [facility] Work Phone: [phone]) [phone] Progress note Author Mehul Garrett [facility] August 12, 2023 9:28am Note Date/Time August 11, 2023 8:2 2am [facility] [address] [place] [address] Pulmonology Progress Note Signed Patient: Sudeep Diego JR MR#: [id number] : 1950 Acct:[id number] Age/Sex: 72 / M Adm Date: 4 Loc: Room: [address] [place] [address] Type: ADM IN Attending Dr: Geo Thomas DO Copies to: ~ Date of Service: 08/11/2023 Exam Physical Exam Vital Signs: Temp Pulse Resp BP Pulse Ox O2 Del Method O2 Flow Rate 97.9 F 115 H 32 H 131/66 96 Mechanical Ventilation 6 08/11/23 08:00 08/11/23 08:00 08/11/23 08:00 08/11/23 08:00 08/11/23 08:00 08/11/23 08:00 08/10/23 17:00 FiO2 40 08/11/23 08:00 Const Nutritional Appearance: average body habitus and overweight Orientation: not alert and not awake HEENT Head: normal to inspection, normocephalic and atraumatic Ears: external ears normal Nose: external nose normal Face and sinus: normal facial exam Mouth: other (7.5 mm ID ET tube) Eyes Eyelids: eyelids normal Neck Neck: normal visual inspection and no lymphadenopathy Chest Chest palpation & inspection: normal inspection of the chest Resp Auscultation: clear to auscultation bilaterally, no rales, no rhonchi and no wheezes Cardio Rate: regular rate Rhythm: regular rhythm Heart Sounds: S1 normal, S2 normal, no gallops, no murmurs and no rubs GI Inspection: normal to inspection Palpation: soft and nontender Auscultation: hypoactive bowel sounds Rectal Exam: deferred General: deferred Skin General: no rashes or lesions noted (warm and dry) Extrem General: no pedal edema and amputation noted Transmetatarsal: left Objective Intake and Output I&O - Last 24 Hours: Intake & Output 08/10/23 08/11/23 08/11/23 23:59 07:59 15:59 Intake Total 400 / 920 200 / 200 Output Total 15 48 / 48 Balance 385 / 835 152 / 152 Weight 203 lb 7.787 oz Labs 08/12/23 04:35 08/12/23 04:35 Imaging and Cardiology Chest x-ray: Status: image reviewed by me Additional comments: Date of Service: 08/11/23 XR/XR chest 1V portable: respiratory failure PORTABLE AP SEMIERECT CHEST 0503 hours CLINICAL HISTORY: Respiratory distress on ventilator COMPARISON: 08/10/2023 Tubes and lines are similar to the prior. The heart is within normal limits for size. The hilar and mediastinal contours are unchanged. There is continued minor interstitial change and groundglass density. There is no new consolidation, sizable effusion or pneumothorax. There is endplate spurring at the spine. XR/XR chest 1V portable IMPRESSION: SIMILAR PARENCHYMAL CHANGES. Additional Results Results Comments: 08/11/23 05:13 ABG pH 7.45 ABG pCO2 30.0 L ABG pO2 70.8 L ABG HCO3 20.5 L ABG Total CO2 21.4 L ABG O2 Saturation 93.8 L ABG O2 Content 6.6 ABG Base Excess -2.6 14/500/40/5 Assessment/Plan Assessment/Plan (1) Acute hypoxic respiratory failure: (2) Acute pulmonary edema: (3) ESRD (end stage renal disease): (4) T2DM (type 2 diabetes mellitus): (5) PAD (peripheral artery disease): Plan Hospital day #10, ventilator day #10 for patient with respiratory failure, influenza A, diabetes mellitus, end-stage renal disease, and peripheral vasculardisease. Patient failed trial of extubation on August 09 primarily due to mucous plugging/retention of secretions. Patient remains encephalopathic with medical and neurologic workup negative. This was discussed with patient's family. Recommendation was for tracheostomy to allow discontinuation of all sedation to remove another factor which could contribute to mental status changes. Family is agreeable. Consult was placed. In the meantime, we will discontinue the Geodon and start tube feeds and start metoclopromide and monitor QTc. Continue supportive care. Documented By: Mehul Garrett MD 4 0821 Signed By: <Electronically signed by MD Mehul Garrett> 08/12/23 8760 [facility] Work Phone: 1(903) 326-991903-18-2024 Consult note Author Darryl Britt [facility] August 11, 2023 5:14pm Note Date/Time August 11, 2023 5:1 4pm [facility] [address] [place] [address] ENT Consult Note Signed Patient: Sudeep Diego JR MR#: [id number] : 1950 Acct:[id number] Age/Sex: 72 / M Adm Date: 4 Loc: Room: [address] [place] [address] Type: ADM IN Attending Dr: Geo Thomas DO Copies to: DO Geo Zhao DO Marc Naderer, MD~ HPI Consult date: 08/11/2023 Requesting provider: Geo Thomas DO Reason for consult: Tracheotomy HPI History of Present Illness: Patient 72-year-old male was asked to see this afternoon for consideration of tracheotomy. Patient has been hospitalized now for about a week with respiratory failure other medical issues including renal failure etc. He has been attempted to be extubated once and had to be reintubated. He is encephalopathic, cannot communicate at all. This thought that he will need to be on the ventilator for a bit more and because of the fact that he is now been on the ventilator for about 10 days risks of subglottic stenosis, vocal cord damage etc. are considerable therefore tracheotomy has been recommended. 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 Osteomyelitis Diabetic foot infection Diabetes mellitus due to underlying condition with [...] Brother Cancer muscle Social History Smoking Status: Light tobacco smoker Tobacco Type: cigars Substance Use Type: Marijuana Substance Abuse Comment: former drinker quit several years ago Allergies & Medications Medications and Allergies Allergies cefepime Allergy (Unknown, Verified 07/10/23 18:46) Hives lisinopril Allergy (Unknown, Verified 07/10/23 18:46) Swelling of Lip/Tongue/Throat, SWELLING metformin Allergy (Unknown, Verified 07/10/23 18:46) Back Pain, KIDNEY PAIN Home Medications atorvastatin 40 mg tablet 40 mg PO DAILY 01/13/23 [History Confirmed 08/01/23] clopidogrel 75 mg tablet (Plavix) 75 mg PO DAILY angioplasty left leg 3 months #90 tabs 01/13/23 [Rx Confirmed 08/01/23] duloxetine 60 mg capsule,delayed release 60 mg PO DAILY 01/13/23 [History Confirmed 08/01/23] flash glucose sensor (FreeStyle Shawn 2 Sensor kit) 01/13/23 [History Confirmed 07/16/23] metoprolol succinate 50 mg tablet,extended release 24 hr 50 mg PO DAILY 01/13/23[History Confirmed 08/01/23] insulin glargine 100 unit/mL (3 mL) subcutaneous pen (Basaglar KwikPen U-100 Insulin) 37 unit subcut 2XD 02/23/23 [History Confirmed 08/01/23] insulin lispro 100 unit/mL subcutaneous pen (Humalog KwikPen (U-100) Insulin) See Rx Instructions .Route .COMPLEX 02/23/23 [History Confirmed 08/01/23] amlodipine 10 mg tablet 10 mg PO DAILY #30 tabs 07/23/23 [Rx Confirmed 08/01/23] furosemide 80 mg tablet 80 mg PO BID@0800,1600 30 days #60 tabs 07/23/23 [Rx Confirmed 08/01/23] oxycodone 5 mg tablet 10 mg (2 x 5 mg) PO Q4H PRN Pain Scale 4 - 7 3 days #10 tabs 07/23/23 [Rx Confirmed 08/01/23] sennosides 8.6 mg-docusate sodium 50 mg tablet 2 tab PO BID #10 tabs 07/23/23 [Rx Confirmed 08/01/23] acetaminophen 325 mg capsule 650 mg (2 x 325 mg) PO Q4-6H PRN pain #30 caps 07/26/23 [Rx Confirmed 08/01/23] atorvastatin 40 mg tablet 40 mg PO QPM #0 tabs 07/26/23 [Rx Confirmed 08/01/23] baclofen 10 mg tablet 10 mg PO BID PRN muscle spams #10 tabs 07/26/23 [Rx Confirmed 08/01/23] gabapentin 300 mg capsule 300 mg PO QPM 30 days #30 caps 07/26/23 [Rx Confirmed 08/01/23] ondansetron 4 mg disintegrating tablet 4 - 8 mg (1 - 2 x 4 mg) PO Q6HR PRN nausea with dialysis #10 tabs 07/26/23 [Rx Confirmed 08/01/23] pantoprazole 40 mg tablet,delayed release 40 mg PO QAM 30 days #0 tabs 07/26/23 [Rx Confirmed 08/01/23] polyethylene glycol 3350 17 gram oral powder packet (HealthyLax) 17 g PO DAILY PRN Constipation #0 ea 07/26/23 [Rx Confirmed 08/01/23] Active Medications Acetaminophen (Acetaminophen 325 Mg Tablet) 650 mg PO Q6H PRN PRN Reason: Pain Stop: 07/31/24 14:12 Last Admin: 08/07/23 16:44 Dose: 650 mg Albuterol (Albuterol Hfa 200 Puff/18 Gm Inhaler) 6 puff VENT Q6HR KACI Stop: 07/31/24 11:59 Last Admin: 08/11/23 11:16 Dose: 6 puff Amlodipine Besylate (Amlodipine 5 Mg Tablet) 5 mg OG-TUBE DAILY KACI Stop: 08/09/24 08:59 Last Admin: 08/11/23 08:47 Dose: 5 mg Chlorhexidine Gluconate (Chlorhexidine Gluconate 0.12% 15 Ml Udc) 15 ml MUCOUS MEM BID KACI Stop: 07/31/24 08:59 Last Admin: 08/11/23 08:46 Dose: 15 ml Dextrose (Dextrose 50% In Water 25 Gm/50 Ml Syringe) 0 gm IV-PUSH PRN PRN PRN Reason: Hypoglycemia Stop: 07/31/24 08:04 Docusate Sodium (Docusate Liquid 100 Mg/10 Ml Udc) 100 mg PO BID KACI Stop: 08/03/24 08:59 Last Admin: 08/11/23 08:46 Dose: 100 mg Fentanyl Citrate (Fentanyl/Pf 100 Mcg/2 Ml Vial) 50 mcg IV-PUSH Q2H PRN PRN Reason: Pain Scale 4 - 7 Last Admin: 08/11/23 13:11 Dose: 50 mcg Glucose (Dextrose 40% Gel 15 Gm Tube) 0 gm PO PRN PRN PRN Reason: Hypoglycemia Stop: 07/31/24 08:04 Heparin Sodium (Porcine) (Heparin 10,000 Unit/10 Ml Vial) 2,000 unit IV PRN PRN PRN Reason: Dialysis Stop: 08/01/24 09:40 Last Admin: 08/11/23 11:58 Dose: 2,000 unit Heparin Sodium (Porcine) (Heparin 5,000 Unit/Ml Vial) 5,000 unit SUBCUT Q8HR [facility] Stop: 08/01/24 13:59 Last Admin: 08/11/23 13:15 Dose: 5,000 unit Heparin Sodium (Porcine) (Heparin 10,000 Unit/10 Ml Vial) 1,000 unit IV PRN PRN PRN Reason: Dialysis Stop: 08/05/24 10:45 Last Admin: 08/11/23 11:58 Dose: 1,000 unit Heparin Sodium (Porcine) (Heparin 10,000 Unit/10 Ml Vial) 4,100 unit IV PRN PRN PRN Reason: Dialysis Stop: 08/07/24 14:32 Last Admin: 08/11/23 11:58 Dose: 4,100 unit Hydralazine HCl (Hydralazine 20 Mg/Ml Vial) 10 mg IV-PUSH Q4H PRN PRN Reason: Hypertension Stop: 08/07/24 12:07 Last Admin: 08/10/23 21:50 Dose: 10 mg Sodium Chloride (0.9% Sodium Chloride 1,000 Ml) 1,000 mls @ 0 mls/hr MISCELLANE.Q0M PRN PRN Reason: Dialysis Stop: 07/31/24 10:31 Last Infusion: 08/11/23 11:58 Dose: Infused Sodium Chloride (0.9% Sodium Chloride 1,000 Ml) 1,000 mls @ 0 mls/hr MISCELLANE.Q0M PRN PRN Reason: Dialysis Stop: 08/01/24 09:40 Last Infusion: 08/08/23 14:31 Dose: Infused Dexmedetomidine HCl 400 mcg/ (Dextrose) 100 mls @ 4.84 mls/hr IV .[id number] [facility]; Protocol Stop: 08/04/24 10:14 Last Admin: 08/11/23 11:55 Dose: 0.6 mcg/kg/hr, 14.52 mls/hr Midazolam HCl (Versed) 100 mg in 100 mls @ 1 mls/hr IV .Q24H [facility]; Protocol Stop: 02/01/24 22:59 Last Admin: 08/10/23 22:07 Dose: Not Given Insulin Aspart (Insulin Aspart 300 Units/3 Ml Insuln.Pen) 0 units SUBCUT Q6HR [facility]; Protocol Stop: 07/31/24 11:59 Last Admin: 08/11/23 13:16 Dose: 2 units Magnesium Hydroxide (Magnesium Hydroxide Susp 30 Ml Udc) 30 ml PO DAILY PRN PRN Reason: Constipation Stop: 08/02/24 22:13 Metoclopramide HCl (Metoclopramide 10 Mg/2 Ml Vial) 5 mg IV-PUSH Q6HR [facility] Stop: 08/10/24 11:59 Last Admin: 08/11/23 13:12 Dose: 5 mg Midazolam HCl (Midazolam/Pf 2 Mg/2 Ml Vial) 4 mg IV-PUSH Q3H PRN PRN Reason: Agitation Stop: 02/01/24 11:11 Last Admin: 08/05/23 22:41 Dose: 4 mg Midazolam HCl (Midazolam/Pf 2 Mg/2 Ml Vial) 4 mg IV-PUSH ONCE PRN PRN Reason: sedation Last Admin: 08/08/23 13:00 Dose: 4 mg Pantoprazole Sodium (Pantoprazole 40 Mg Vial) 40 mg IV-PUSH DAILY [facility] Stop: 07/31/24 08:59 Last Admin: 08/11/23 08:46 Dose: 40 mg Sennosides (Sennosides Syrup 8.8 Mg/5 Ml Udc) 8.8 mg PO BID [facility] Stop: 08/03/24 08:59 Last Admin: 08/11/23 08:46 Dose: 8.8 mg Sodium Chloride (Sodium Chloride 0.9 % 10 Ml Vial.Pf) 10 ml INJECTION PRN PRN PRN Reason: Dilution Stop: 07/31/24 08:06 Last Admin: 08/11/23 08:46 Dose: 10 ml Sodium Chloride (Sodium Chloride 0.9 % 10 Ml Syringe) 10 ml IV-PUSH PRN PRN PRN Reason: Flush Stop: 07/31/24 08:06 Last Admin: 08/10/23 08:12 Dose: 10 ml Sodium Chloride (Sodium Chloride 0.9 % 10 Ml Syringe) 0 ml IV-PUSH PRN PRN PRN Reason: Flush Stop: 07/31/24 10:31 Last Admin: 08/11/23 11:57 Dose: 40 ml Sodium Chloride (Sodium Chloride 0.9 % 10 Ml Syringe) 0 ml IV-PUSH PRN PRN PRN Reason: Flush Stop: 08/01/24 09:40 Last Admin: 08/09/23 22:21 Dose: 10 ml Exam Physical Exam Vital Signs: Temp Pulse Resp BP Pulse Ox O2 Del Method O2 Flow Rate 98.1 F 112 H 34 H 101/61 98 Mechanical Ventilation 6 08/11/23 14:01 08/11/23 14:01 08/11/23 14:01 08/11/23 14:01 08/11/23 14:01 08/11/23 12:00 08/10/23 17:00 FiO2 40 08/11/23 14:01 Narrative: Patient is supine in bed with restraints. He is intubated for oral and has a orogastric tube. He is completely nonresponsive though his eyes are open and heis moving his head [id number]. He does not respond to verbal stimuli. Neck examination reveals no adenopathy or mass. Thyroid is nonpalpable. Trachea and larynx are midline. Remainder of the head neck examination is deferred at this time. Results - ENT Labs 08/11/23 04:13 08/11/23 04:13 Lab Results: Laboratory Results - last 72 hr 08/11/23 14:02: POC Glucose 177 08/11/23 11:39: POC Glucose 159 08/11/23 05:54: POC Glucose 160, POC Glucose Comment Glu2: cleaned meter 08/11/23 05:13: Sample Site Left radial, ABG pH 7.45, ABG pCO2 30.0 L, ABG pO2 70.8 L, ABG HCO3 20.5 L, ABG Total CO2 21.4 L, ABG O2 Saturation 93.8 L, ABG O2 Content 6.6, ABG Base Excess -2.6, Set Respiration Rate 14, Vent Mode Ac, FiO2 40, Tidal Volume 500, PEEP 5, Critical Value 08/11/23 04:13: Corrected WBC 22.5 H, Uncorrected WBC Count 22.5 H, RBC 3.43 L, Hgb 10.2 L, Hct 30.8 L, MCV 89.8, MCH 29.8, MCHC 33.2, RDW 17.5 H, Plt Count 655H, MPV 7.2, Neut % (Auto) N/A, Lymph % (Auto) N/A, [place] % (Auto) N/A, Eos % (Auto) N/A, Baso % (Auto) N/A, Nucleat RBC Rel Count N/A, Neut # (Auto) N/A, Lymph # (Auto) N/A, [place] # (Auto) N/A, Eos # (Auto) N/A, Baso # (Auto) N/A, Lymphocytes % 6 L, Monocytes % 12 H, Eosinophils % 0 L, Basophils % 0, Metamyelocytes % 3 H, Myelocytes % 1 H, Segmented Neutrophils 78 H, Platelet Estimate Increased, Large Platelets Slight, Plt Morphology Comment N/A, RBC Morphology N/A, Poikilocytosis Slight, Anisocytosis Slight, Ovalocytes Slight, Schistocytes Slight, PHA Creatinine Clear 19.44, Sodium 125 L, Potassium 4.8, Chloride 89 L, Carbon Dioxide 22.9, Anion Gap 17.9 H, BUN 70 H, Creatinine 3.83 H, Est GFR (CKD-EPI) 16.061, Glucose 158 H, Calcium 7.7 L 08/10/23 23:29: POC Glucose 188, POC Glucose Comment Glu2: cleaned meter 08/10/23 18:20: Sample Site Left radial, ABG pH 7.37, ABG pCO2 35.0, ABG pO2 75.6 L, ABG HCO3 19.9 L, ABG Total CO2 20.9 L, ABG O2 Saturation 94.4 L, ABG O2 Content 6.9, ABG Base Excess -4.7 L, Set Respiration Rate 14, Vent Mode Ac, [id number], Tidal Volume 500, PEEP 5, Critical Value 08/10/23 17:56: POC Glucose 195, POC Glucose Comment Glu2: cleaned meter 08/10/23 12:13: POC Glucose 202, POC Glucose Comment Glu2: cleaned meter 08/10/23 07:38: Corrected WBC 19.4 H, Uncorrected WBC Count 19.4 H, RBC 3.51 L, Hgb 10.2 L, Hct 31.2 L, MCV 88.9, MCH 29.2, MCHC 32.9, RDW 17.5 H, Plt Count 587H, MPV 7.3, Neut % (Auto) 75.8, Lymph % (Auto) 7.4, [place] % (Auto) 13.8, Eos % (Auto) 2.5, Baso % (Auto) 0.5, Nucleat RBC Rel Count 0.0, Neut # (Auto) 14.7 H, Lymph # (Auto) 1.4, [place] # (Auto) 2.7 H, Eos # (Auto) 0.5 H, Baso # (Auto) 0.1, Platelet Estimate Increased, Plt Morphology Comment Normal, RBC Morphology N/A, Anisocytosis Slight, PHA Creatinine Clear 21.33, Sodium 126 L, Potassium 4.5, Chloride 90 L, Carbon Dioxide 27.5, Anion Gap 13.0, BUN 56 H, Creatinine 3.49 H D, Est GFR (CKD-EPI) 17.956, Glucose 172 H, Calcium 7.7 L 08/10/23 05:34: POC Glucose 178, POC Glucose Comment Glu2: cleaned meter 08/10/23 04:44: Sample Site Left radial, ABG pH 7.47 H, ABG pCO2 34.9 L, ABG pO254.0 L, ABG HCO3 24.7, ABG Total CO2 25.7, ABG O2 Saturation 87.5 L, ABG O2 Content 6.3 L, ABG Base Excess 1.2, Set Respiration Rate 14, Vent Mode Ac, FiO2 30, Tidal Volume 500, PEEP 5, Critical Value 08/09/23 23:58: POC Glucose 180, POC Glucose Comment Glu2: cleaned meter 08/09/23 17:24: POC Glucose 171, POC Glucose Comment Glu2: cleaned meter 08/09/23 11:33: POC Glucose 191, POC Glucose Comment Glu2: cleaned meter 08/09/23 06:29: POC Glucose 173, POC Glucose Comment Glu2: cleaned meter 08/09/23 04:38: Corrected WBC 18.4 H, Uncorrected WBC Count 18.4 H, RBC 3.27 L, Hgb 9.6 L, Hct 29.0 L, MCV 88.7, MCH 29.4, MCHC 33.1, RDW 18.0 H, Plt Count 512 H, MPV 7.5, Neut % (Auto) 75.6, Lymph % (Auto) 8.4, [place] % (Auto) 14.1, Eos % (Auto) 1.6, Baso % (Auto) 0.3, Nucleat RBC Rel Count 0.1, Neut # (Auto) 13.9 H, Lymph # (Auto) 1.6, [place] # (Auto) 2.6 H, Eos # (Auto) 0.3, Baso # (Auto) 0.1, PHA Creatinine Clear 26.38, Sodium 127 L, Potassium 4.5, Chloride 91 L, Carbon Dioxide 27.2, Anion Gap 13.3, BUN 35 H, Creatinine 2.81 H D, Est GFR (CKD-EPI) 23.290, Glucose 157 H, Calcium 7.5 L 08/09/23 04:00: Sample Site Left radial, ABG pH 7.52 H, ABG pCO2 31.5 L, ABG pO261.0 L, ABG HCO3 24.9, ABG Total CO2 25.8, ABG O2 Saturation 92.0 L, ABG O2 Content 6.2 L, ABG Base Excess 2.3, Set Respiration Rate 14, Vent Mode Ac, FiO2 40, Tidal Volume 500, PEEP 5, Critical Value 08/09/23 00:16: POC Glucose 173 08/08/23 18:32: POC Glucose Comment Sliding scale covera 08/08/23 18:32: POC Glucose 146, POC Glucose Comment Glu2: cleaned meter Microbiology Microbiology Results: Microbiology - Last 72 hours 08/11/23 09:26 Blood - Left Antecubital Blood Culture - Pending 08/11/23 09:25 Blood - Left Hand Blood Culture - Pending A&P - ENT (1) Respiratory failure: Code(s): J96.90 - Respiratory failure, unspecified, unspecified whether with hypoxia or hypercapnia Plan I agree patient is a candidate for tracheotomy. Risks and benefits were discussed with the patient's who is signing consents, it was given. I willperform this tomorrow afternoon in the operating room. Documented By: Darryl Britt DO 08/11/23 170 5 Signed By: <Electronically signed by DO Darryl Britt> 08/11/23 0846 [facility] Work Phone: [phone] 259-753203-18-2024 Progress note Author Rancho Kay [facility] August 11, 2023 11:09am Note Date/Time August 11, 2023 11: 10am [facility] [address] [place] [address] Nephrology Progress Note Signed Patient: Sudeep Diego JR MR#: [id number] : 1950 Acct:[id number] Age/Sex: 72 / M Adm Date: 4 Loc: Room: [address] [place] [address] Type: ADM IN Attending Dr: Geo Thomas DO Copies to: ~ Date of Service: 08/11/2023 Subjective Subjective Narrative: Mr. Diego is a 72-year-old male with history of DM2, HTN, PAD and prostate cancer. Patient was recently started on hemodialysis during his admission in June 2023 for SONYA possibly related to ATN versus Staph aureus glomerulonephritis. 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 Creatinine has increased up to 5 mg/dL with no evidence of recovery. [facility]. Patient presented to [facility] from his nursing facility with severe shortness of breath requiring intubation. Chest x-ray showed bilateral pulmonary infiltrate with possible pulmonary edema. Subsequently the patient was transferred to [facility] and he continues to be on vent. Respiratory swab showed evidence of influenza A. Patient is currently being treated for healthcare associated pneumonia with vancomycin and meropenem. Troponin was found to be elevated up to 1700. Hemoglobin was only 6.5 g/dL in setting of infection. Cardiology evaluated the patient and no intervention is planned at this point at the patient most likely has type II demand decreased cardiac perfusion. Nephrology was consulted for ESRD and dialysis. Interval history: Patient is being seen and examined during dialysis. He is tachycardic and tachypneic. Exam Physical Exam Vital Signs: Temp Pulse Resp BP Pulse Ox O2 Del Method O2 Flow Rate 97.9 F 120 H 31 H 123/63 97 Mechanical Ventilation 6 08/11/23 08:00 08/11/23 10:17 08/11/23 10:00 08/11/23 10:17 08/11/23 10:00 08/11/23 10:00 08/10/23 17:00 FiO2 40 08/11/23 10:00 Narrative: General: Appears comfortable and not in distress Heart: S1-S2, no rub Lung: Bilateral air entry, no wheezing or crackles Abdomen: Soft, positive bowel sounds Extremities: No edema, no cyanosis Head: Atraumatic, normocephalic Ear: No external ear redness or tenderness Eyes: No pallor or redness Neck: No JVD or visible mass Skin: No rashes , warm to touch [employer]: Intubated and sedated. Musculoskeletal: No joint swelling or limitation of movement Objective Intake and Output I&O: Intake & Output 08/08/23 08/09/23 08/10/23 08/11/23 23:59 23:59 23:59 23:59 Intake Total 869 / 869 730 / 730 920 / 920 200 / 200 Output Total 4411 / 4411 30 / 30 85 / 85 48 / 48 Balance -3542 / -3542 700 / 700 835 / 835 152 / 152 Weight 94.9 kg 90.8 kg 91.6 kg 92.3 kg Meds and Allergies Meds: Active Medications Acetaminophen (Acetaminophen 325 Mg Tablet) 650 mg PO Q6H PRN PRN Reason: Pain Stop: 07/31/24 14:12 Last Admin: 08/07/23 16:44 Dose: 650 mg Albuterol (Albuterol Hfa 200 Puff/18 Gm Inhaler) 6 puff VENT Q6HR [facility] Stop: 07/31/24 11:59 Last Admin: 08/11/23 05:25 Dose: 6 puff Amlodipine Besylate (Amlodipine 5 Mg Tablet) 5 mg OG-TUBE DAILY [facility] Stop: 08/09/24 08:59 Last Admin: 08/11/23 08:47 Dose: 5 mg Chlorhexidine Gluconate (Chlorhexidine Gluconate 0.12% 15 Ml Udc) 15 ml MUCOUS MEM BID [facility] Stop: 07/31/24 08:59 Last Admin: 08/11/23 08:46 Dose: 15 ml Dextrose (Dextrose 50% In Water 25 Gm/50 Ml Syringe) 0 gm IV-PUSH PRN PRN PRN Reason: Hypoglycemia Stop: 07/31/24 08:04 Docusate Sodium (Docusate Liquid 100 Mg/10 Ml Udc) 100 mg PO BID [facility] Stop: 08/03/24 08:59 Last Admin: 08/11/23 08:46 Dose: 100 mg Fentanyl Citrate (Fentanyl/Pf 100 Mcg/2 Ml Vial) 50 mcg IV-PUSH Q2H PRN PRN Reason: Pain Scale 4 - 7 Last Admin: 08/11/23 00:13 Dose: 50 mcg Glucose (Dextrose 40% Gel 15 Gm Tube) 0 gm PO PRN PRN PRN Reason: Hypoglycemia Stop: 07/31/24 08:04 Heparin Sodium (Porcine) (Heparin 10,000 Unit/10 Ml Vial) 2,000 unit IV PRN PRN PRN Reason: Dialysis Stop: 08/01/24 09:40 Last Admin: 08/08/23 14:28 Dose: 2,000 unit Heparin Sodium (Porcine) (Heparin 5,000 Unit/Ml Vial) 5,000 unit SUBCUT Q8HR [facility] Stop: 08/01/24 13:59 Last Admin: 08/11/23 05:57 Dose: 5,000 unit Heparin Sodium (Porcine) (Heparin 10,000 Unit/10 Ml Vial) 1,000 unit IV PRN PRN PRN Reason: Dialysis Stop: 08/05/24 10:45 Last Admin: 08/08/23 14:29 Dose: 1,000 unit Heparin Sodium (Porcine) (Heparin 10,000 Unit/10 Ml Vial) 4,100 unit IV PRN PRN PRN Reason: Dialysis Stop: 08/07/24 14:32 Last Admin: 08/08/23 15:01 Dose: 4,100 unit Hydralazine HCl (Hydralazine 20 Mg/Ml Vial) 10 mg IV-PUSH Q4H PRN PRN Reason: Hypertension Stop: 08/07/24 12:07 Last Admin: 08/10/23 21:50 Dose: 10 mg Sodium Chloride (0.9% Sodium Chloride 1,000 Ml) 1,000 mls @ 0 mls/hr MISCELLANE.Q0M PRN PRN Reason: Dialysis Stop: 07/31/24 10:31 Last Infusion: 08/06/23 14:21 Dose: Infused Sodium Chloride (0.9% Sodium Chloride 1,000 Ml) 1,000 mls @ 0 mls/hr MISCELLANE.Q0M PRN PRN Reason: Dialysis Stop: 08/01/24 09:40 Last Infusion: 08/08/23 14:31 Dose: Infused Dexmedetomidine HCl 400 mcg/ (Dextrose) 100 mls @ 4.84 mls/hr IV .[id number] [facility]; Protocol Stop: 08/04/24 10:14 Last Titration: 08/11/23 10:17 Dose: 0.6 mcg/kg/hr, 14.52 mls/hr Midazolam HCl (Versed) 100 mg in 100 mls @ 1 mls/hr IV .Q24H [facility]; Protocol Stop: 02/01/24 22:59 Last Admin: 08/10/23 22:07 Dose: Not Given Insulin Aspart (Insulin Aspart 300 Units/3 Ml Insuln.Pen) 0 units SUBCUT Q6HR [facility]; Protocol Stop: 07/31/24 11:59 Last Admin: 08/11/23 05:58 Dose: 2 units Magnesium Hydroxide (Magnesium Hydroxide Susp 30 Ml Udc) 30 ml PO DAILY PRN PRN Reason: Constipation Stop: 08/02/24 22:13 Metoclopramide HCl (Metoclopramide 10 Mg/2 Ml Vial) 5 mg IV-PUSH Q6HR [facility] Stop: 08/10/24 11:59 Midazolam HCl (Midazolam/Pf 2 Mg/2 Ml Vial) 4 mg IV-PUSH Q3H PRN PRN Reason: Agitation Stop: 02/01/24 11:11 Last Admin: 08/05/23 22:41 Dose: 4 mg Midazolam HCl (Midazolam/Pf 2 Mg/2 Ml Vial) 4 mg IV-PUSH ONCE PRN PRN Reason: sedation Last Admin: 08/08/23 13:00 Dose: 4 mg Pantoprazole Sodium (Pantoprazole 40 Mg Vial) 40 mg IV-PUSH DAILY [facility] Stop: 07/31/24 08:59 Last Admin: 08/11/23 08:46 Dose: 40 mg Sennosides (Sennosides Syrup 8.8 Mg/5 Ml Udc) 8.8 mg PO BID [facility] Stop: 08/03/24 08:59 Last Admin: 08/11/23 08:46 Dose: 8.8 mg Sodium Chloride (Sodium Chloride 0.9 % 10 Ml Vial.Pf) 10 ml INJECTION PRN PRN PRN Reason: Dilution Stop: 07/31/24 08:06 Last Admin: 08/11/23 08:46 Dose: 10 ml Sodium Chloride (Sodium Chloride 0.9 % 10 Ml Syringe) 10 ml IV-PUSH PRN PRN PRN Reason: Flush Stop: 07/31/24 08:06 Last Admin: 08/10/23 08:12 Dose: 10 ml Sodium Chloride (Sodium Chloride 0.9 % 10 Ml Syringe) 0 ml IV-PUSH PRN PRN PRN Reason: Flush Stop: 07/31/24 10:31 Last Admin: 08/10/23 15:14 Dose: 10 ml Sodium Chloride (Sodium Chloride 0.9 % 10 Ml Syringe) 0 ml IV-PUSH PRN PRN PRN Reason: Flush Stop: 08/01/24 09:40 Last Admin: 08/09/23 22:21 Dose: 10 ml Allergies cefepime Allergy (Unknown, Verified 07/10/23 18:46) Hives lisinopril Allergy (Unknown, Verified 07/10/23 18:46) Swelling of Lip/Tongue/Throat, SWELLING metformin Allergy (Unknown, Verified 07/10/23 18:46) Back Pain, KIDNEY PAIN Results - Nephrology Labs 08/11/23 04:13 08/11/23 04:13 Labs: 08/11/23 04:13 BUN 70 H Creatinine 3.83 H Radiology Impressions Impressions - last 24 hours: Impressions Chest X-Ray 08/10/23 17:22 IMPRESSION: Satisfactory positioning of the ET tube, enteric tube, and right IJ line. Impression dictated by: Nathan Lemus M.D.08/10/2023 5:50 PM Dictation Location: [place] [address] Chest X-Ray 08/11/23 05:00 IMPRESSION: SIMILAR PARENCHYMAL CHANGES. Impression dictated by: Pallavi Hernandez M.D.08/11/2023 6:58 AM Dictation Location: [place] [address] Any impression(s) listed above is documentation that was entered by the reading physician into a diagnostic report(s) for Sudeep Diego JR. I have reviewed the report(s) and am incorporating any findings in the treatment plan of this patient where applicable. A&P - Nephrology Assessment/Plan (1) SONYA (acute kidney injury): Assessment/Problem Details: Patient developed SONYA during his previous admission on June 2023 with left foot infection and staph bacteremia with no evidence of recovery currently on dialysis. Baseline creatinine was 1.1 mg/dL. Patient gets dialysis on MWF schedule (2) Acute pulmonary edema: Assessment/Problem Details: Patient presents with shortness of breath and respiratory failure. Chest x-ray showed pulmonary congestion with evidence of bilateral infiltrate. 2D echo showed dilated IVC with abnormal collapsibility suggestive of volume overload (3) Acute hypoxic respiratory failure: Assessment/Problem Details: Patient has bilateral infiltrate on chest x-ray, respiratory swab was positive for influenza A. Patient is currently getting treatment for healthcare associated pneumonia as well since he has recent hospitalization (4) T2DM (type 2 diabetes mellitus): Assessment/Problem Details: He has insulin-dependent type 2 diabetes mellitus. He was taking insulin glargine at home. (5) Elevated troponin level not due to acute coronary syndrome: Assessment/Problem Details: He has a type II SD likely due to demand ischemia in setting of CHF and sepsis. (6) Anemia of renal disease: Assessment/Problem Details: He has anemia in the setting of SONYA with superimposed infection. Patient has elevated ferritin and low iron saturation in setting of infection. Plan * Hemodialysis today as ordered. Will do ultrafiltration as tolerated by his BP. * Will check the blood cultures due to the persistent leukocytosis. * ANCA, and anti-GBM antibodies are negative. SUSANA positive for SLATE SPLITTER antibodies. Not sure about the clinical significant of these. Might have to do kidney biopsy when the patient is more stable. * Blood pressure remains elevated this morning. I will add Norvasc 5 mg p.o daily. Patient has been also on as needed hydralazine * Patient had 2 units of packed RBCs earlier this admission. Will continue to monitor H&H and transfuse as needed * Vent management as directed by pulmonary service * Will monitor daily intake, output and renal panel to adjust medications and dialysis prescription as indicated. * Case was discussed with the Dr. Garrett. Documented By: Rancho Kay MD 08/11/23 1103 Signed By: <Electronically signed by Rancho Kay MD> 08/11/23 1109 [facility] Work Phone: 1(325) 277-783703-18-2024 Progress note Author Geo Thomas [facility] August 11, 2023 11:02am Note Date/Time August 11, 2023 10: 50am [facility] [address] [place], [place] [id number] Hospitalist Progress Note Signed Patient: Sudeep Diego JR MR#: [id number] : 1950 Acct:[id number] Age/Sex: 72 / M Adm Date: 4 Loc: Room: [address] [place] [address] Type: ADM IN Attending Dr: Geo Thomas DO Copies to: ~ Date of Service: 08/11/2023 Subjective Subjective Narrative: Mr. Diego is on ventilator day #10 with Precedex due to respiratory distressand is receiving Hemodialysis at this time. Patients family is accompanying him. Exam Physical Exam Vital Signs: Temp Pulse Resp BP Pulse Ox O2 Del Method O2 Flow Rate 97.9 F 120 H 31 H 123/63 97 Mechanical Ventilation 6 08/11/23 08:00 08/11/23 10:17 08/11/23 10:00 08/11/23 10:17 08/11/23 10:00 08/11/23 10:00 08/10/23 17:00 FiO2 40 08/11/23 10:00 Narrative: General: Endotracheal and orogastric tube in place. Sedated with Precedex. Pulmonary: Clear to auscultation anteriorly only but equal bilaterally. Cardiac: Mild sinus tachycardia on the monitor. No rubs or gallops to auscultation. GI: Abdomen is soft and nontender to palpation throughout. Normal bowel sounds to auscultation. Extremities: Sleeve compression devices on bilaterally and in good position. Minimal edema. : Santana does draining small amount of concentrated urine. No gross hematuria. Objective Lab Results 08/11/23 04:13 08/11/23 04:13 ABG Interpretation ABG results: 08/11/23 05:13 ABG pH 7.45 ABG pCO2 30.0 L ABG pO2 70.8 L ABG HCO3 20.5 L ABG Total CO2 21.4 L ABG O2 Saturation 93.8 L ABG O2 Content 6.6 ABG Base Excess -2.6 Meds Allergies and Active Meds Allergies cefepime Allergy (Unknown, Verified 07/10/23 18:46) Hives lisinopril Allergy (Unknown, Verified 07/10/23 18:46) Swelling of Lip/Tongue/Throat, SWELLING metformin Allergy (Unknown, Verified 07/10/23 18:46) Back Pain, KIDNEY PAIN Active Meds: Active Medications Generic Name Dose Route Start Last Admin Trade Name Freq PRN Reason Stop Dose Admin Acetaminophen 650 mg 08/01/23 14:13 08/07/23 16:44 Acetaminophen 325 Mg Tablet PO 07/31/24 14:12 650 mg Q6H PRN Administration Pain Albuterol 6 puff 08/01/23 12:00 08/11/23 05:25 Albuterol Hfa 200 Puff/18 Gm Inhaler VENT 07/31/24 11:59 6 puff Q6HR [facility] Administration Amlodipine Besylate 5 mg 08/10/23 09:00 08/11/23 08:47 Amlodipine 5 Mg Tablet OG-TUBE 08/09/24 08:59 5 mg DAILY [facility]I Administration Chlorhexidine Gluconate 15 ml 08/01/23 09:00 08/11/23 08:46 Chlorhexidine Gluconate 0.12% 15 Ml Udc MUCOUS MEM 07/31/24 08:59 15 ml BID [facility]I Administration Dextrose 0 gm 08/01/23 08:05 Dextrose 50% In Water 25 Gm/50 Ml Syringe IV-PUSH 07/31/24 08:04 PRN PRN Hypoglycemia Docusate Sodium 100 mg 08/04/23 09:00 08/11/23 08:46 Docusate Liquid 100 Mg/10 Ml Udc PO 08/03/24 08:59 100 mg BID KACI Administration Fentanyl Citrate 50 mcg 08/02/23 09:44 08/11/23 00:13 Fentanyl/Pf 100 Mcg/2 Ml Vial IV-PUSH 50 mcg Q2H PRN Administration Pain Scale 4 - 7 Glucose 0 gm 08/01/23 08:05 Dextrose 40% Gel 15 Gm Tube PO 07/31/24 08:04 PRN PRN Hypoglycemia Heparin Sodium (Porcine) 2,000 unit 08/02/23 09:41 08/08/23 14:28 Heparin 10,000 Unit/10 Ml Vial IV 08/01/24 09:40 2,000 unit PRN PRN Administration Dialysis Heparin Sodium (Porcine) 5,000 unit 08/02/23 14:00 08/11/23 05:57 Heparin 5,000 Unit/Ml Vial SUBCUT 08/01/24 13:59 5,000 unit Q8HR [facility]I Administration Heparin Sodium (Porcine) 1,000 unit 08/06/23 10:46 08/08/23 14:29 Heparin 10,000 Unit/10 Ml Vial IV 08/05/24 10:45 1,000 unit PRN PRN Administration Dialysis Heparin Sodium (Porcine) 4,100 unit 08/08/23 14:33 08/08/23 15:01 Heparin 10,000 Unit/10 Ml Vial IV 08/07/24 14:32 4,100 unit PRN PRN Administration Dialysis Hydralazine HCl 10 mg 08/08/23 12:08 08/10/23 21:50 Hydralazine 20 Mg/Ml Vial IV-PUSH 08/07/24 12:07 10 mg Q4H PRN Administration Hypertension Sodium Chloride 1,000 mls @ 0 mls/hr 08/01/23 10:32 08/06/23 14:21 0.9% Sodium Chloride 1,000 Ml MISCELLANE 07/31/24 10:31 Infused .Q0M PRN Infusion Dialysis As Directed Sodium Chloride 1,000 mls @ 0 mls/hr 08/02/23 09:41 08/08/23 14:31 0.9% Sodium Chloride 1,000 Ml MISCELLANE 08/01/24 09:40 Infused .Q0M PRN Infusion Dialysis As Directed Dexmedetomidine HCl 400 mcg/ 100 mls @ 4.84 mls/hr 08/05/23 10:15 08/11/23 10:17 Dextrose IV 08/04/24 10:14 0.6 mcg/kg/hr .[id number] [facility] 14.52 mls/hr Titration Protocol 0.2 MCG/KG/HR Midazolam HCl 100 mg in 100 mls @ 1 mls/hr 08/05/23 23:00 08/10/23 22:07 Versed IV 02/01/24 22:59 Not Given .Q24H [facility] Protocol 1 MG/HR Insulin Aspart 0 units 08/01/23 12:00 08/11/23 05:58 Insulin Aspart 300 Units/3 Ml Insuln.Pen SUBCUT 07/31/24 11:59 2 units Q6HR [facility] Administration Protocol Magnesium Hydroxide 30 ml 08/03/23 22:14 Magnesium Hydroxide Susp 30 Ml Udc PO 08/02/24 22:13 DAILY PRN Constipation Metoclopramide HCl 5 mg 08/11/23 12:00 Metoclopramide 10 Mg/2 Ml Vial IV-PUSH 08/10/24 11:59 Q6HR [facility] Midazolam HCl 4 mg 08/05/23 11:12 08/05/23 22:41 Midazolam/Pf 2 Mg/2 Ml Vial IV-PUSH 02/01/24 11:11 4 mg Q3H PRN Administration Agitation Midazolam HCl 4 mg 08/07/23 12:34 08/08/23 13:00 Midazolam/Pf 2 Mg/2 Ml Vial IV-PUSH 4 mg ONCE PRN Administration sedation Pantoprazole Sodium 40 mg 08/01/23 09:00 08/11/23 08:46 Pantoprazole 40 Mg Vial IV-PUSH 07/31/24 08:59 40 mg DAILY [facility]I Administration Sennosides 8.8 mg 08/04/23 09:00 08/11/23 08:46 Sennosides Syrup 8.8 Mg/5 Ml Udc PO 08/03/24 08:59 8.8 mg BID K[facility]I Administration Sodium Chloride 10 ml 08/01/23 08:07 08/11/23 08:46 Sodium Chloride 0.9 % 10 Ml Vial.Pf INJECTION 07/31/24 08:06 10 ml PRN PRN Administration Dilution Sodium Chloride 10 ml 08/01/23 08:07 08/10/23 08:12 Sodium Chloride 0.9 % 10 Ml Syringe IV-PUSH 07/31/24 08:06 10 ml PRN PRN Administration Flush Sodium Chloride 0 ml 08/01/23 10:32 08/10/23 15:14 Sodium Chloride 0.9 % 10 Ml Syringe IV-PUSH 07/31/24 10:31 10 ml PRN PRN Administration Flush Sodium Chloride 0 ml 08/02/23 09:41 08/09/23 22:21 Sodium Chloride 0.9 % 10 Ml Syringe IV-PUSH 08/01/24 09:40 10 ml PRN PRN Administration Flush A&P - Hospitalist Assessment/Plan (1) Acute hypoxic respiratory failure: (2) ESRD (end stage renal disease): (3) T2DM (type 2 diabetes mellitus): (4) Hyperlipemia: (5) HTN (hypertension): (6) PAD (peripheral artery disease): (7) Encephalopathy: (8) Anemia of renal disease: [place] [phone] Hospitalist Progress Note Signed Patient: Sudeep Diego JR MR#: [id number] : 1950 Acct:[id number] Age/Sex: 72 / M Adm Date: 08/01/23 Loc: Room: [address] [place] [address] Type: ADM INAttending Dr: Vania Chacon MD Copies to: ~ Date of Service: 08/06/2023 Subjective Subjective Narrative: Seen and examined On mechanical ventilation Sedated NO fever Exam Physical Exam Vital Signs: Temp Pulse Resp BP Pulse Ox O2 Del Method FiO2 98.6 F 65 19 137/61 95 Mechanical Ventilation 40 08/06/23 08:00 08/06/23 09:00 08/06/23 09:00 08/06/23 09:00 08/06/23 09:00 08/06/23 09:00 08/06/23 09:00 Narrative: General sedated and intubated HEENT PERRLA Neck supple no JVD no carotid bruit CVS S1-S2 regular rate and rhythm no murmur no gallop Chest bilateral wheezing Abdomen soft bowel sounds normoactive no rebound no guarding Extremities no stenosis no clubbing no edema Musculoskeletal exam normal no joint effusion Neurologic sedated and intubated Objective Lab Results 08/06/23 04:10 08/06/23 04:10 Microbiology Results Microbiology 08/01/23 07:33 Blood - Right Antecubital Blood Culture - Final NO GROWTH 5 DAYS 08/01/23 07:40 Blood - Left Hand Blood Culture - Final NO GROWTH 5 DAYS ABG Interpretation ABG results: 08/06/23 04:52 ABG pH 7.40 ABG pCO2 38.2 ABG pO2 131.8 H* ABG HCO3 23.2 ABG Total CO2 24.4 ABG O2 Saturation 98.7 ABG O2 Content 6.3 L ABG Base Excess -1.3 Meds Allergies and Active Meds Allergies cefepime Allergy (Unknown, Verified 07/10/23 18:46) Hiveslisinopril Allergy (Unknown, Verified 07/10/23 18:46) Swelling of Lip/Tongue/Throat, SWELLINGmetformin Allergy (Unknown, Verified 07/10/23 18:46) Back Pain, KIDNEY PAIN Active Meds: Active Medications Generic Name Dose Route Start Last Admin Trade Name Freq PRN Reason Stop Dose Admin Acetaminophen 650 mg 08/01/23 14:13 08/05/23 22:20 Acetaminophen 325 Mg Tablet PO 07/31/24 14:12 650 mg Q6H PRN Administration Pain Albuterol 6 puff 08/01/23 12:00 08/06/23 05:05 Albuterol Hfa 200 Puff/18 Gm Inhaler VENT 07/31/24 11:59 6 puff Q6HR KACI Administration Chlorhexidine Gluconate 15 ml 08/01/23 09:00 08/06/23 08:42 Chlorhexidine Gluconate 0.12% 15 Ml Udc MUCOUS MEM 07/31/24 08:59 15 ml BID KACI Administration Dextrose 0 gm 08/01/23 08:05 Dextrose 50% In Water 25 Gm/50 Ml Syringe IV-PUSH 07/31/24 08:04 PRN PRN Hypoglycemia Docusate Sodium 100 mg 08/04/23 09:00 08/06/23 08:42 Docusate Liquid 100 Mg/10 Ml Udc PO 08/03/24 08:59 100 mg BID KACI Administration Fentanyl Citrate 50 mcg 08/02/23 09:44 08/03/23 21:01 Fentanyl/Pf 100 Mcg/2 Ml Vial IV-PUSH 50 mcg Q2H PRN Administration Pain Scale 4 - 7 Glucose 0 gm 08/01/23 08:05 Dextrose 40% Gel 15 Gm Tube PO 07/31/24 08:04 PRN PRN Hypoglycemia Heparin Sodium (Porcine) 2,000 unit 08/01/23 10:32 08/04/23 18:04 Heparin 10,000 Unit/10 Ml Vial IV 07/31/24 10:31 2,000 unit PRN PRN Administration Dialysis Heparin Sodium (Porcine) 500 unit 08/01/23 10:32 08/04/23 18:05 Heparin 10,000 Unit/10 Ml Vial IV 07/31/24 10:31 500 unit PRN PRN Administration Dialysis Heparin Sodium (Porcine) 2,000 unit 08/02/23 09:41 08/02/23 22:59 Heparin 10,000 Unit/10 Ml Vial IV 08/01/24 09:40 2,000 unit PRN PRN Administration Dialysis Heparin Sodium (Porcine) 5,000 unit 08/02/23 14:00 08/06/23 06:28 Heparin 5,000 Unit/Ml Vial SUBCUT 08/01/24 13:59 5,000 unit Q8HR KACI Administration Sodium Chloride 1,000 mls @ 0 mls/hr 08/01/23 10:32 08/04/23 18:05 0.9% Sodium Chloride 1,000 Ml MISCELLANE 07/31/24 10:31 Infused .Q0M PRN Infusion Dialysis As Directed Meropenem 0.5 gm in 100 mls @ 33.3 mls/hr 08/01/23 14:00 08/05/23 17:17 Merrem IV 08/07/23 17:01 Infused Q24H KACI Infusion Sodium Chloride 1,000 mls @ 0 mls/hr 08/02/23 09:41 08/02/23 23:01 0.9% Sodium Chloride 1,000 Ml MISCELLANE 08/01/24 09:40 Infused .Q0M PRN Infusion Dialysis As Directed Fentanyl 1,000 mcg in 100 mls @ 2.5 mls/hr 08/03/23 22:30 08/06/23 06:29 Fentanyl 1,000 Mcg/100 Ml D5w IV Not Given .Q24H KACI Protocol 25 MCG/HR Dexmedetomidine HCl 400 mcg/ 100 mls @ 4.84 mls/hr 08/05/23 10:15 08/06/23 07:43 Dextrose IV 08/04/24 10:14 1.5 mcg/kg/hr .[id number] KACI 36.3 mls/hr Administration Protocol 0.2 MCG/KG/HR Midazolam HCl 100 mg in 100 mls @ 1 mls/hr 08/05/23 23:00 08/05/23 23:30 Versed IV 02/01/24 22:59 3 mg/hr .Q24H KACI 3 mls/hr Titration Protocol 1 MG/HR Magnesium Sulfate 4 gm in 100 mls @ 25 mls/hr 08/06/23 09:20 Magnesium Sulf 4 Gm-*Swfi* IV 08/06/23 13:19 ONCE ONE Insulin Aspart 0 units 08/01/23 12:00 08/06/23 06:28 Insulin Aspart 300 Units/3 Ml Insuln.Pen SUBCUT 07/31/24 11:59 2 units Q6HR KACI Administration Protocol Magnesium Hydroxide 30 ml 08/03/23 22:14 Magnesium Hydroxide Susp 30 Ml Udc PO 08/02/24 22:13 DAILY PRN Constipation Midazolam HCl 4 mg 08/05/23 11:12 08/05/23 22:41 Midazolam/Pf 2 Mg/2 Ml Vial IV-PUSH 02/01/24 11:11 4 mg Q3H PRN Administration Agitation Pantoprazole Sodium 40 mg 08/01/23 09:00 08/06/23 08:42 Pantoprazole 40 Mg Vial IV-PUSH 07/31/24 08:59 40 mg DAILY KACI Administration Sennosides 8.8 mg 08/04/23 09:00 08/06/23 08:42 Sennosides Syrup 8.8 Mg/5 Ml Udc PO 08/03/24 08:59 8.8 mg BID KACI Administration Sodium Chloride 10 ml 08/01/23 08:07 08/06/23 08:43 Sodium Chloride 0.9 % 10 Ml Vial.Pf INJECTION 07/31/24 08:06 10 ml PRN PRN Administration Dilution Sodium Chloride 10 ml 08/01/23 08:07 08/01/23 08:49 Sodium Chloride 0.9 % 10 Ml Syringe IV-PUSH 07/31/24 08:06 10 ml PRN PRN Administration Flush Sodium Chloride 0 ml 08/01/23 10:32 08/05/23 17:19 Sodium Chloride 0.9 % 10 Ml Syringe IV-PUSH 07/31/24 10:31 10 ml PRN PRN Administration Flush Sodium Chloride 0 ml 08/02/23 09:41 08/04/23 16:49 Sodium Chloride 0.9 % 10 Ml Syringe IV-PUSH 08/01/24 09:40 40 ml PRN PRN Administration Flush A&P - Hospitalist Assessment/Plan (1) Acute hypoxic respiratory failure: (2) Acute pulmonary edema: (3) ESRD (end stage renal disease): (4) Leukocytosis: (5) T2DM (type 2 diabetes mellitus): (6) Hyperlipemia: (7) HTN (hypertension): (8) PAD (peripheral artery disease): (9) SONYA (acute kidney injury): Plan ASSESSMENT AND PLAN: Acute hypoxic respiratory failure Re-intubated on 08/10/2023. Acute influenza A Severe anemia, most likely related to chronic kidney disease and chronic disease with his recent diabetic foot. Hemoglobin and hematocrit are stable Recent severe issues with diabetic foot with kim osteomyelitis, visible bone, requiring a transmetatarsal amputation the previous hospital stay on 07/18/2023. Recent MSSA osteomyelitis of the left forefoot, appears to be treated successfully with a trans metatarsal amputation. No fever Diabetes mellitus type 2, described as brittle, with recent hemoglobin A1c uncontrolled at 8.1. Accu-Check every 6 hours Insulin sliding scale History of peripheral arterial disease with angioplasty to the left lower extremity in the past. Lower extremities are stable. History of hypertension: Controlled History of dyslipidemia. n.p.o. on vent End-stage renal disease on hemodialysis: Hemodialysis Mo, We, Fr. 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 DVT prophylaxis heparin 5000 units SC Q 8 hours. Documented By: Geo Thomas DO [id number] Signed By: <Electronically signed by Geo Thomas DO> 08/11/23 1102 [facility] Work Phone: [phone] 552-253803-18-2024 [facility] Progress note Author Eulogio Ruvalcaba [facility] August 10, 2023 2:43pm Note Date/Time August 10, 2023 2:4 3pm [facility] [address] [place] [address] Hospitalist Progress Note Signed Patient: Sudeep Diego JR MR#: [id number] : 1950 Acct:[id number] Age/Sex: 72 / M Adm Date: 4 Loc: Room: [address] [place] [address] Type: ADM IN Attending Dr: Eulogio Ruvalcaba MD Copies to: ~ Date of Service: 08/10/2023 Subjective Subjective Narrative: Seen and examined Patient was extubated at about 12 noon. He was intubated about 9 days. Patient is getting supplemental oxygen via nasal cannula. Television Repairer is following. No fever. Patient was slightly agitated last night. Exam Physical Exam Vital Signs: Temp Pulse Resp BP Pulse Ox O2 Del Method O2 Flow Rate 98.5 F 77 24 174/84 H 95 Nasal Cannula 6 08/10/23 12:00 08/10/23 14:05 08/10/23 14:00 08/10/23 14:05 08/10/23 14:00 08/10/23 14:00 08/10/23 14:00 FiO2 40 08/10/23 11:41 Objective Lab Results 08/10/23 07:38 08/10/23 07:38 ABG Interpretation ABG results: 08/10/23 04:44 ABG pH 7.47 H ABG pCO2 34.9 L ABG pO2 54.0 L ABG HCO3 24.7 ABG Total CO2 25.7 ABG O2 Saturation 87.5 L ABG O2 Content 6.3 L ABG Base Excess 1.2 Meds Allergies and Active Meds Allergies cefepime Allergy (Unknown, Verified 07/10/23 18:46) Hives lisinopril Allergy (Unknown, Verified 07/10/23 18:46) Swelling of Lip/Tongue/Throat, SWELLING metformin Allergy (Unknown, Verified 07/10/23 18:46) Back Pain, KIDNEY PAIN Active Meds: Active Medications Generic Name Dose Route Start Last Admin Trade Name Freq PRN Reason Stop Dose Admin Acetaminophen 650 mg 08/01/23 14:13 08/07/23 16:44 Acetaminophen 325 Mg Tablet PO 07/31/24 14:12 650 mg Q6H PRN Administration Pain Albuterol 6 puff 08/01/23 12:00 08/10/23 12:01 Albuterol Hfa 200 Puff/18 Gm Inhaler VENT 07/31/24 11:59 6 puff Q6HR KCAI Administration Amlodipine Besylate 5 mg 08/10/23 09:00 08/10/23 08:11 Amlodipine 5 Mg Tablet OG-TUBE 08/09/24 08:59 5 mg DAILY KACI Administration Chlorhexidine Gluconate 15 ml 08/01/23 09:00 08/10/23 08:11 Chlorhexidine Gluconate 0.12% 15 Ml Udc MUCOUS MEM 07/31/24 08:59 15 ml BID KACI Administration Dextrose 0 gm 08/01/23 08:05 Dextrose 50% In Water 25 Gm/50 Ml Syringe IV-PUSH 07/31/24 08:04 PRN PRN Hypoglycemia Docusate Sodium 100 mg 08/04/23 09:00 08/10/23 08:11 Docusate Liquid 100 Mg/10 Ml Udc PO 08/03/24 08:59 100 mg BID KACI Administration Fentanyl Citrate 50 mcg 08/02/23 09:44 08/10/23 03:26 Fentanyl/Pf 100 Mcg/2 Ml Vial IV-PUSH 50 mcg Q2H PRN Administration Pain Scale 4 - 7 Glucose 0 gm 08/01/23 08:05 Dextrose 40% Gel 15 Gm Tube PO 07/31/24 08:04 PRN PRN Hypoglycemia Heparin Sodium (Porcine) 2,000 unit 08/02/23 09:41 08/08/23 14:28 Heparin 10,000 Unit/10 Ml Vial IV 08/01/24 09:40 2,000 unit PRN PRN Administration Dialysis Heparin Sodium (Porcine) 5,000 unit 08/02/23 14:00 08/10/23 13:26 Heparin 5,000 Unit/Ml Vial SUBCUT 08/01/24 13:59 5,000 unit Q8HR KACI Administration Heparin Sodium (Porcine) 1,000 unit 08/06/23 10:46 08/08/23 14:29 Heparin 10,000 Unit/10 Ml Vial IV 08/05/24 10:45 1,000 unit PRN PRN Administration Dialysis Heparin Sodium (Porcine) 4,100 unit 08/08/23 14:33 08/08/23 15:01 Heparin 10,000 Unit/10 Ml Vial IV 08/07/24 14:32 4,100 unit PRN PRN Administration Dialysis Hydralazine HCl 10 mg 08/08/23 12:08 Hydralazine 20 Mg/Ml Vial IV-PUSH 08/07/24 12:07 Q4H PRN Hypertension Sodium Chloride 1,000 mls @ 0 mls/hr 08/01/23 10:32 08/06/23 14:21 0.9% Sodium Chloride 1,000 Ml MISCELLANE 07/31/24 10:31 Infused .Q0M PRN Infusion Dialysis As Directed Sodium Chloride 1,000 mls @ 0 mls/hr 08/02/23 09:41 08/08/23 14:31 0.9% Sodium Chloride 1,000 Ml MISCELLANE 08/01/24 09:40 Infused .Q0M PRN Infusion Dialysis As Directed Dexmedetomidine HCl 400 mcg/ 100 mls @ 4.84 mls/hr 08/05/23 10:15 08/10/23 14:05 Dextrose IV 08/04/24 10:14 0.7 mcg/kg/hr .[id number] KACI 16.94 mls/hr Titration Protocol 0.2 MCG/KG/HR Midazolam HCl 100 mg in 100 mls @ 1 mls/hr 08/05/23 23:00 08/10/23 09:47 Versed IV 02/01/24 22:59 0 mg/hr .Q24H KACI 0 mls/hr Titration Protocol 1 MG/HR Insulin Aspart 0 units 08/01/23 12:00 08/10/23 12:15 Insulin Aspart 300 Units/3 Ml Insuln.Pen SUBCUT 07/31/24 11:59 3 units Q6HR KACI Administration Protocol Magnesium Hydroxide 30 ml 08/03/23 22:14 Magnesium Hydroxide Susp 30 Ml Udc PO 08/02/24 22:13 DAILY PRN Constipation Midazolam HCl 4 mg 08/05/23 11:12 08/05/23 22:41 Midazolam/Pf 2 Mg/2 Ml Vial IV-PUSH 02/01/24 11:11 4 mg Q3H PRN Administration Agitation Midazolam HCl 4 mg 08/07/23 12:34 08/08/23 13:00 Midazolam/Pf 2 Mg/2 Ml Vial IV-PUSH 4 mg ONCE PRN Administration sedation Pantoprazole Sodium 40 mg 08/01/23 09:00 08/10/23 08:12 Pantoprazole 40 Mg Vial IV-PUSH 07/31/24 08:59 40 mg DAILY KACI Administration Sennosides 8.8 mg 08/04/23 09:00 08/10/23 08:11 Sennosides Syrup 8.8 Mg/5 Ml Udc PO 08/03/24 08:59 8.8 mg BID KACI Administration Sodium Chloride 10 ml 08/01/23 08:07 08/10/23 08:12 Sodium Chloride 0.9 % 10 Ml Vial.Pf INJECTION 07/31/24 08:06 10 ml PRN PRN Administration Dilution Sodium Chloride 10 ml 08/01/23 08:07 08/10/23 08:12 Sodium Chloride 0.9 % 10 Ml Syringe IV-PUSH 07/31/24 08:06 10 ml PRN PRN Administration Flush Sodium Chloride 0 ml 08/01/23 10:32 08/10/23 03:26 Sodium Chloride 0.9 % 10 Ml Syringe IV-PUSH 07/31/24 10:31 10 ml PRN PRN Administration Flush Sodium Chloride 0 ml 08/02/23 09:41 08/09/23 22:21 Sodium Chloride 0.9 % 10 Ml Syringe IV-PUSH 08/01/24 09:40 10 ml PRN PRN Administration Flush Sterile Water 1.2 ml 08/09/23 10:30 08/10/23 08:12 Water For Injection,Sterile 10 Ml Vial INJECTION 08/08/24 10:29 1.2 ml BID KACI Administration Ziprasidone 10 mg 08/09/23 10:30 08/10/23 08:12 Ziprasidone 20 Mg Vial IM 08/08/24 10:29 10 mg BID KACI Administration A&P - Hospitalist Assessment/Plan (1) Acute hypoxic respiratory failure: (2) Acute pulmonary edema: (3) ESRD (end stage renal disease): (4) Leukocytosis: (5) T2DM (type 2 diabetes mellitus): (6) Hyperlipemia: (7) HTN (hypertension): (8) PAD (peripheral artery disease): (9) SONYA (acute kidney injury): Plan ASSESSMENT AND PLAN: 08/10/2023 Acute hypoxic respiratory failure Acute influenza A EEG:Normal-appearing routine EEG. Normal electrical background. No epileptiform discharges. No seizures. MRI brain Neurology is following ICU team is following Patient has been extubated today, 08/10/2023 at 12 noon. Severe progressive anemia, most likely related to chronic kidney disease and chronic disease with his recent diabetic foot. Hemoglobin and hematocrit are stable 9.3/27.5 Recent severe issues with diabetic foot with kim osteomyelitis, visible bone, requiring a transmetatarsal amputation the previous hospital stay on 07/18/2023. Recent MSSA osteomyelitis of the left forefoot, appears to be treated successfully with a trans metatarsal amputation. No fever No leukocytosis Diabetes mellitus type 2, described as brittle, with recent hemoglobin A1c uncontrolled at 8.1. Accu-Check every 6 hours Insulin sliding scale History of peripheral arterial disease with angioplasty to the left lower extremity in the past. History of hypertension: Controlled History of dyslipidemia. n.p.o. 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 Hyponatremia: trending down . Nephrology is following DVT prophylaxis heparin Documented By: Eulogio Ruvalcaba MD 08/10/23 1437 Signed By: <Electronically signed by Eulogio Ruvalcaba MD> 08/10/23 1443 [facility] Work Phone: [phone]) 504-139803-17-2024 Progress note Author Mehul Garrett [facility] August 10, 2023 2:03pm Note Date/Time August 10, 2023 10: 50am [facility] [address] [place] [address] Pulmonology Progress Note Signed Patient: Sudeep Diego JR MR#: [id number] : 1950 Acct:[id number] Age/Sex: 72 / M Adm Date: 4 Loc: Room: [address] [place] [address] Type: ADM IN Attending Dr: Eulogio Ruvalcaba MD Copies to: ~ Date of Service: 08/10/2023 Subjective Subjective Narrative: Patient remains sedated on Geodon and dexmedetomidine infusion with Versed discontinued earlier this morning. Patient did require extra doses of medications due to agitation overnight. Exam Physical Exam Vital Signs: Temp Pulse Resp BP Pulse Ox O2 Del Method FiO2 98.1 F 63 16 119/60 99 Mechanical Ventilation 50 08/10/23 08:00 08/10/23 10:00 08/10/23 10:00 08/10/23 09:58 08/10/23 09:58 08/10/23 09:58 08/10/23 10:00 Const Nutritional Appearance: average body habitus and overweight Orientation: not alert and not awake HEENT Head: normal to inspection, normocephalic and atraumatic Ears: external ears normal Nose: external nose normal Face and sinus: normal facial exam Mouth: other (8.0 mm ID ET tube) Eyes Eyelids: eyelids normal Neck Neck: normal visual inspection and no lymphadenopathy Chest Chest palpation & inspection: normal inspection of the chest Resp Auscultation: clear to auscultation bilaterally, no rales, no rhonchi and no wheezes Cardio Rate: regular rate Rhythm: regular rhythm Heart Sounds: S1 normal, S2 normal, no gallops, no murmurs and no rubs GI Inspection: normal to inspection Palpation: soft and nontender Auscultation: hypoactive bowel sounds Rectal Exam: deferred General: deferred Skin General: no rashes or lesions noted (warm and dry) Extrem General: no pedal edema and amputation noted Transmetatarsal: left Objective Intake and Output I&O - Last 24 Hours: Intake & Output 08/09/23 08/10/23 08/10/23 23:59 07:59 15:59 Intake Total 260 / 730 260 / 360 100 / 360 Output Total 30 55 / 55 Balance 240 / 700 205 / 305 100 / 305 Weight 201 lb 15.095 oz Labs 08/10/23 07:38 08/10/23 07:38 Imaging and Cardiology Chest x-ray: Status: image reviewed by me Additional comments: Date of Service: 08/10/23 XR/XR chest 1V portable: on vent XR chest 1V portable 08/09/2023 1:00 PM SIGNS AND SYMPTOMS: Respiratory failure PROTOCOL: Frontal radiograph of the chest COMPARISON: 08/09/2023 FINDINGS: The trachea is midline. The ET tube, enteric tube, and right IJ line are unchanged. The heart and mediastinal structures are within normal limits. Similar bilateral perihilar airspace opacity is noted with interstitial prominence. Postoperative changes are noted in the left shoulder. Degenerative changes are noted in the shoulders and thoracic spine. The bony thorax is intact. XR/XR chest 1V portable IMPRESSION: Unchanged chest. Additional Results Results Comments: 08/10/23 04:44 ABG pH 7.47 H ABG pCO2 34.9 L ABG pO2 54.0 L ABG HCO3 24.7 ABG Total CO2 25.7 ABG O2 Saturation 87.5 L ABG O2 Content 6.3 L ABG Base Excess 1.2 Assessment/Plan Assessment/Plan (1) Acute hypoxic respiratory failure: (2) Acute pulmonary edema: (3) ESRD (end stage renal disease): (4) T2DM (type 2 diabetes mellitus): (5) PAD (peripheral artery disease): Plan Hospital day #9, ventilator day #9 for patient with respiratory failure, influenza A, diabetes mellitus, end-stage renal disease, and peripheral vasculardisease. Patient remains agitated and on dexmedetomidine as well as Geodon without significant increase in QT interval. Neurology input is appreciated. There is no other etiology for the patient's confusion and question whether someof this may be simply related to the fact that the patient is intubated and encephalopathic. We will proceed with extubation and gradually wean off dexmedetomidine and continue Geodon neither of which will suppress respiratory drive. Continue supportive care. Documented By: Mehul Garrett MD 4 [id number] Signed By: <Electronically signed by MD Mehul Garrett> 08/10/23 1403 [facility] Work Phone: [phone] 403-221303-17-2024 Progress note Author Debbie Dennis [facility] August 10, 2023 10:54am Note Date/Time August 10, 2023 10: 27am [facility] [address] [place] [address] Neurology Progress Note Signed Patient: Sudeep Diego JR MR#: [id number] : 1950 Acct:[id number] Age/Sex: 72 / M Adm Date: 4 Loc: Room: [address] [place] [address] Type: ADM IN Attending Dr: Eulogio Ruvalcaba MD Copies to: ~ Date of Service: 08/10/2023 Subjective Subjective Narrative: Patient with some improvement today slightly. He does attempt to open his eyes a little bit more. He is withdrawing from noxious stimuli slightly better but he still not becoming awake and alert. They did just change some of his sedation took him off the Versed and put him on some Geodon. No other new events through the night. Exam Physical Exam Vital Signs: Temp Pulse Resp BP Pulse Ox O2 Del Method FiO2 98.1 F 66 17 119/60 99 Mechanical Ventilation 50 08/10/23 08:00 08/10/23 09:58 08/10/23 09:58 08/10/23 09:58 08/10/23 09:58 08/10/23 09:58 08/10/23 09:58 Narrative: Patient is in the bed intubated. Patient does not respond to any commands or answer any questions no attempt at verbal communication, however he is trying to open his eyes to verbal stimuli more than he was yesterday No significant spontaneous movement is observed Pupils are pinpoint at approximately 2 mm but do appear to be reactive Positive corneal reflex bilaterally both direct and consensual No doll's eyes Mild gag with advancement of the ET tube He does grimace and move his head away from pinprick to the nose Patient grimaces with noxious stimuli to all 4 extremities Minimal withdraw to noxious stimuli in the bilateral upper extremity but less inthe bilateral lower extremity Withdrawal there is not significant withdraw in all 4 extremities Babinski is negative on the right left toes are amputated Objective Vital Signs Vital Signs: Vital Signs - 24 hr 08/09/23 11:00 08/09/23 11:00 08/09/23 11:18 Temperature Pulse Rate 65 Pulse Rate [Monitor] 68 Respiratory Rate 20 18 Blood Pressure Blood Pressure [Left Arm] 123/65 02 Sat by Pulse Oximetry 96 Oxygen Delivery Method Mechanical Ventilation Fraction of Inspired Oxygen 40 40 35 08/09/23 11:40 08/09/23 11:55 08/09/23 11:59 Temperature 98.4 F Pulse Rate 70 Pulse Rate [Monitor] 67 Respiratory Rate 23 Blood Pressure 123/65 Blood Pressure [Left Arm] 141/72 H 02 Sat by Pulse Oximetry 97 Oxygen Delivery Method Mechanical Ventilation Fraction of Inspired Oxygen 35 35 08/09/23 12:37 08/09/23 12:37 08/09/23 12:48 Temperature Pulse Rate 67 67 Pulse Rate [Monitor] 68 Respiratory Rate 18 Blood Pressure 137/71 137/71 Blood Pressure [Left Arm] 137/71 02 Sat by Pulse Oximetry 96 Oxygen Delivery Method Mechanical Ventilation Fraction of Inspired Oxygen 35 08/09/23 12:50 08/09/23 13:48 08/09/23 13:48 Temperature Pulse Rate Pulse Rate [Monitor] 66 Respiratory Rate 24 Blood Pressure Blood Pressure [Left Arm] 114/61 02 Sat by Pulse Oximetry 97 Oxygen Delivery Method Mechanical Ventilation Fraction of Inspired Oxygen 35 35 35 08/09/23 14:35 08/09/23 14:35 08/09/23 14:55 Temperature Pulse Rate 65 65 Pulse Rate [Monitor] 62 Respiratory Rate 17 Blood Pressure 141/69 H 141/69 H Blood Pressure [Left Arm] 141/69 H 02 Sat by Pulse Oximetry 98 Oxygen Delivery Method Mechanical Ventilation Fraction of Inspired Oxygen 35 08/09/23 14:57 08/09/23 15:03 08/09/23 15:30 Temperature Pulse Rate 61 60 Pulse Rate [Monitor] Respiratory Rate Blood Pressure 124/66 124/66 Blood Pressure [Left Arm] 02 Sat by Pulse Oximetry Oxygen Delivery Method Fraction of Inspired Oxygen 35 08/09/23 15:57 08/09/23 15:57 08/09/23 16:00 Temperature 98.0 F Pulse Rate Pulse Rate [Monitor] 62 Respiratory Rate 18 Blood Pressure Blood Pressure [Left Arm] 138/71 02 Sat by Pulse Oximetry 99 Oxygen Delivery Method Mechanical Ventilation Mechanical Ventilation Fraction of Inspired Oxygen 35 35 35 08/09/23 16:21 08/09/23 16:56 08/09/23 17:00 Temperature Pulse Rate 61 61 Pulse Rate [Monitor] 63 Respiratory Rate 23 Blood Pressure 138/71 138/71 Blood Pressure [Left Arm] 155/78 H 02 Sat by Pulse Oximetry 98 Oxygen Delivery Method Mechanical Ventilation Fraction of Inspired Oxygen 35 08/09/23 17:00 08/09/23 17:15 08/09/23 18:00 Temperature Pulse Rate 60 Pulse Rate [Monitor] Respiratory Rate 24 Blood Pressure Blood Pressure [Left Arm] 02 Sat by Pulse Oximetry Oxygen Delivery Method Fraction of Inspired Oxygen 35 30 30 08/09/23 18:00 08/09/23 18:02 08/09/23 18:42 Temperature Pulse Rate 65 Pulse Rate [Monitor] 61 63 Respiratory Rate 22 21 Blood Pressure 176/84 H Blood Pressure [Left Arm] 168/84 H 159/79 H 02 Sat by Pulse Oximetry 96 94 L Oxygen Delivery Method Mechanical Ventilation Mechanical Ventilation Fraction of Inspired Oxygen 30 30 08/09/23 18:43 08/09/23 18:56 08/09/23 20:00 Temperature 97.8 F Pulse Rate 71 Pulse Rate [Monitor] 67 Respiratory Rate 27 H Blood Pressure 178/86 H Blood Pressure [Left Arm] 155/74 H 02 Sat by Pulse Oximetry 91 L Oxygen Delivery Method Mechanical Ventilation Fraction of Inspired Oxygen 30 30 08/09/23 20:00 08/09/23 20:00 08/09/23 20:54 Temperature Pulse Rate 72 Pulse Rate [Monitor] Respiratory Rate Blood Pressure 166/82 H Blood Pressure [Left Arm] 02 Sat by Pulse Oximetry Oxygen Delivery Method Mechanical Ventilation Fraction of Inspired Oxygen 30 30 08/09/23 21:00 08/09/23 21:00 08/09/23 21:17 Temperature Pulse Rate 60 Pulse Rate [Monitor] 66 Respiratory Rate 22 Blood Pressure 166/82 H Blood Pressure [Left Arm] 166/82 H 02 Sat by Pulse Oximetry 95 Oxygen Delivery Method Mechanical Ventilation Fraction of Inspired Oxygen 30 40 08/09/23 21:18 08/09/23 21:37 08/09/23 21:45 Temperature Pulse Rate 72 61 Pulse Rate [Monitor] Respiratory Rate 23 Blood Pressure 166/82 H Blood Pressure [Left Arm] 02 Sat by Pulse Oximetry Oxygen Delivery Method Fraction of Inspired Oxygen 40 40 08/09/23 22:00 08/09/23 22:00 08/09/23 23:00 Temperature Pulse Rate Pulse Rate [Monitor] 64 Respiratory Rate 16 Blood Pressure Blood Pressure [Left Arm] 157/74 H 02 Sat by Pulse Oximetry 95 Oxygen Delivery Method Mechanical Ventilation Fraction of Inspired Oxygen 40 40 40 08/09/23 23:00 08/09/23 23:38 08/09/23 23:44 Temperature Pulse Rate 59 L Pulse Rate [Monitor] 59 L Respiratory Rate 17 16 Blood Pressure Blood Pressure [Left Arm] 170/79 H 02 Sat by Pulse Oximetry 98 Oxygen Delivery Method Mechanical Ventilation Fraction of Inspired Oxygen 40 30 30 08/09/23 23:56 08/10/23 00:00 08/10/23 00:00 Temperature 97.7 F Pulse Rate 61 Pulse Rate [Monitor] 67 Respiratory Rate 20 Blood Pressure 170/79 H Blood Pressure [Left Arm] 165/83 H 02 Sat by Pulse Oximetry 92 L Oxygen Delivery Method Mechanical Ventilation Fraction of Inspired Oxygen 30 30 08/10/23 01:00 08/10/23 01:00 08/10/23 01:04 Temperature Pulse Rate 77 Pulse Rate [Monitor] 70 Respiratory Rate 23 Blood Pressure 153/83 H Blood Pressure [Left Arm] 153/83 H 02 Sat by Pulse Oximetry 92 L Oxygen Delivery Method Mechanical Ventilation Fraction of Inspired Oxygen 30 30 08/10/23 01:04 08/10/23 02:00 08/10/23 02:00 Temperature Pulse Rate 77 Pulse Rate [Monitor] 79 Respiratory Rate 24 Blood Pressure 153/83 H Blood Pressure [Left Arm] 200/83 H 02 Sat by Pulse Oximetry 90 L Oxygen Delivery Method Mechanical Ventilation Fraction of Inspired Oxygen 30 30 08/10/23 03:00 08/10/23 03:00 08/10/23 04:00 Temperature Pulse Rate Pulse Rate [Monitor] 78 Respiratory Rate 17 Blood Pressure Blood Pressure [Left Arm] 181/84 H 02 Sat by Pulse Oximetry 93 L Oxygen Delivery Method Mechanical Ventilation Fraction of Inspired Oxygen 30 30 30 08/10/23 04:00 08/10/23 04:31 08/10/23 04:37 Temperature 98.7 F Pulse Rate 72 88 Pulse Rate [Monitor] 88 Respiratory Rate 24 25 H Blood Pressure 169/78 H Blood Pressure [Left Arm] 183/86 H 02 Sat by Pulse Oximetry 92 L Oxygen Delivery Method Mechanical Ventilation Fraction of Inspired Oxygen 30 30 08/10/23 04:42 08/10/23 04:48 08/10/23 04:48 Temperature Pulse Rate Pulse Rate [Monitor] Respiratory Rate Blood Pressure Blood Pressure [Left Arm] 02 Sat by Pulse Oximetry Oxygen Delivery Method Fraction of Inspired Oxygen 40 50 50 08/10/23 05:00 08/10/23 05:00 08/10/23 05:17 Temperature Pulse Rate 72 Pulse Rate [Monitor] 75 Respiratory Rate 19 Blood Pressure 169/78 H Blood Pressure [Left Arm] 169/78 H 02 Sat by Pulse Oximetry 98 Oxygen Delivery Method Mechanical Ventilation Fraction of Inspired Oxygen 50 50 08/10/23 06:00 08/10/23 06:00 08/10/23 07:00 Temperature Pulse Rate Pulse Rate [Monitor] 81 68 Respiratory Rate 24 18 Blood Pressure Blood Pressure [Left Arm] 190/88 H 153/69 H 02 Sat by Pulse Oximetry 98 99 Oxygen Delivery Method Mechanical Ventilation Mechanical Ventilation Fraction of Inspired Oxygen 50 50 50 08/10/23 07:00 08/10/23 08:00 08/10/23 08:00 Temperature 98.1 F Pulse Rate Pulse Rate [Monitor] 74 Respiratory Rate 21 Blood Pressure Blood Pressure [Left Arm] 174/83 H 02 Sat by Pulse Oximetry 98 Oxygen Delivery Method Mechanical Ventilation Mechanical Ventilation Fraction of Inspired Oxygen 50 50 50 08/10/23 08:00 08/10/23 08:03 08/10/23 08:03 Temperature Pulse Rate 76 76 Pulse Rate [Monitor] Respiratory Rate Blood Pressure 174/83 H 174/83 H Blood Pressure [Left Arm] 02 Sat by Pulse Oximetry Oxygen Delivery Method Fraction of Inspired Oxygen 50 08/10/23 09:00 08/10/23 09:00 08/10/23 09:47 Temperature Pulse Rate 65 Pulse Rate [Monitor] 67 Respiratory Rate 16 Blood Pressure 143/71 H Blood Pressure [Left Arm] 143/71 H 02 Sat by Pulse Oximetry 99 Oxygen Delivery Method Mechanical Ventilation Fraction of Inspired Oxygen 50 50 08/10/23 09:56 08/10/23 09:58 Temperature Pulse Rate Pulse Rate [Monitor] 66 Respiratory Rate 17 Blood Pressure Blood Pressure [Left Arm] 119/60 02 Sat by Pulse Oximetry 99 Oxygen Delivery Method Mechanical Ventilation Fraction of Inspired Oxygen 50 50 Labs 08/10/23 07:38 08/10/23 07:38 Assessment/Plan (1) Encephalopathy: Assessment/Problem Details: DATA REVIEW: -Head CT August 06, 2023 is without acute findings. -MRI brain personally reviewed, radiology report pending. I see a 1 cm right parafalcine lesion that has diffusion restriction but no ADC correlate and has faint FLAIR hyperintensity, I cannot tell if it is intra-axial or extra-axial. ASSESSMENT: 72 year old male with metabolic encephalopathy secondary to influenza and respiratory failure. Patient remains intubated and unfortunately is not becoming as alert and responsive as we would like to. He did show a slight improvement today and that he is responding minimally more to verbal stimuli andnoxious stimuli. There was a change in his sedation as they were taking him offof the Versed and put him on some Geodon so this may have shown some improvement. We need to try to gradually decrease sedation to see if we can cognitively get an improvement.. He does have signs of some cortical function with grimace and withdraw from noxious stimuli/pinprick to the nose. MRI of the brain was nonacute with evidence of a meningioma that is incidental finding. At this time unfortunately just need to give him more time and see if he improves cognitively. PLAN: Plan: MRI brain : There is a T2 FLAIR hyperintense structure projecting to the right of midline emanating from the falx along the interhemispheric fissure measuring 1.6 x 0.8 x 1.0 cm. Consistent with meningioma EEG was slow Continue with supportive care Try to minimize sedation Continue with care by the other services Will follow along Hopeful for gradual improvement however unfortunately there is no guarantee Plan: Plan Documented By: Debbie Dennis DO 08/10/23 1026 Signed By: <Electronically signed by DO Debbie Dennis> 08/10/23 2502 [facility] Work Phone: [phone] Progress note Author Aziz [facility] August 10, 2023 10:31am Note Date/Time August 10, 2023 10: 31am [facility] [address] [place] [address] Nephrology Progress Note Signed Patient: Sudeep Diego JR MR#: [id number] : 1950 Acct:[id number] Age/Sex: 72 / M Adm Date: 4 Loc: Room: [address] [place] [address] Type: ADM IN Attending Dr: Eulogio Ruvalcaba MD Copies to: ~ Date of Service: 08/10/2023 Subjective Subjective Narrative: Mr. Diego is a 72-year-old male with history of DM2, HTN, PAD and prostate cancer. Patient was recently started on hemodialysis during his admission in June 2023 for SONYA possibly related to ATN versus Staph aureus glomerulonephritis. 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 Creatinine has increased up to 5 mg/dL with no evidence of recovery. Patient was [facility] to [facility]. Patient presented to [facility] from his nursing facility with severe shortness of breath requiring intubation. Chest x-ray showed bilateral pulmonary infiltrate with possible pulmonary edema. Subsequently the patient was transferred to [facility] and he continues to be on vent. Respiratory swab showed evidence of influenza A. Patient is currently being treated for healthcare associated pneumonia with vancomycin and meropenem. Troponin was found to be elevated up to 1700. Hemoglobin was only 6.5 g/dL in setting of infection. Cardiology evaluated the patient and no intervention is planned at this point at the patient most likely has type II demand decreased cardiac perfusion. Nephrology was consulted for ESRD and dialysis. Interval history: Patient is being seen and examined in the ICU . Patient is calm today patient remains on higher Precedex dose. Patient tolerated hemodialysis and well ID with ultrafiltration of 4 L. Serum sodium level remains low at 126 mmol/L despite stopping free water flushes yesterday. Patient continues to be hyponatremic next day of hemodialysis despite high ultrafiltration Patient remains ventilated. FiO2 to 50%. Chest x-ray from continues to show bilateral airspace disease which is unchanged from the last x-ray continues to be on NG tube feeding There has been no recovery of kidney function. Continues to be oliguric Noted high blood pressure this morning. Cannot do review of system Exam Physical Exam Vital Signs: Temp Pulse Resp BP Pulse Ox O2 Del Method FiO2 98.1 F 63 16 119/60 99 Mechanical Ventilation 50 08/10/23 08:00 08/10/23 10:00 08/10/23 10:00 08/10/23 09:58 08/10/23 09:58 08/10/23 09:58 08/10/23 10:00 Narrative: General: Patient is calm. No acute distress Head :atraumatic normocephalic Eyes: PERRLA. Neck: no JVD no bruit. Heart: S1-S2. RRR Respiratory: Equal air entry. No wheezing no crackles Abdomen: Soft, no distention Neurology: Sedated. Extremity. No cyanosis. No edema Skin: No skin rash Objective Intake and Output I&O: Intake & Output 08/07/23 08/08/23 08/09/23 08/10/23 23:59 23:59 23:59 23:59 Intake Total 1073 / 1073 869 / 869 730 / 730 360 / 360 Output Total 65 / 65 4411 / 4411 30 / 30 55 / 55 Balance 1008 / 1008 -3542 / -3542 700 / 700 305 / 305 Weight 207 lb 14.334 oz 209 lb 3.499 oz 200 lb 2.876 oz 201 lb 15.095 oz Meds and Allergies Meds: Active Medications Acetaminophen (Acetaminophen 325 Mg Tablet) 650 mg PO Q6H PRN PRN Reason: Pain Stop: 07/31/24 14:12 Last Admin: 08/07/23 16:44 Dose: 650 mg Albuterol (Albuterol Hfa 200 Puff/18 Gm Inhaler) 6 puff VENT Q6HR KACI Stop: 07/31/24 11:59 Last Admin: 08/10/23 05:11 Dose: 6 puff Amlodipine Besylate (Amlodipine 5 Mg Tablet) 5 mg OG-TUBE DAILY KACI Stop: 08/09/24 08:59 Last Admin: 08/10/23 08:11 Dose: 5 mg Chlorhexidine Gluconate (Chlorhexidine Gluconate 0.12% 15 Ml Udc) 15 ml MUCOUS MEM BID KACI Stop: 07/31/24 08:59 Last Admin: 08/10/23 08:11 Dose: 15 ml Dextrose (Dextrose 50% In Water 25 Gm/50 Ml Syringe) 0 gm IV-PUSH PRN PRN PRN Reason: Hypoglycemia Stop: 07/31/24 08:04 Docusate Sodium (Docusate Liquid 100 Mg/10 Ml Udc) 100 mg PO BID KACI Stop: 08/03/24 08:59 Last Admin: 08/10/23 08:11 Dose: 100 mg Fentanyl Citrate (Fentanyl/Pf 100 Mcg/2 Ml Vial) 50 mcg IV-PUSH Q2H PRN PRN Reason: Pain Scale 4 - 7 Last Admin: 08/10/23 03:26 Dose: 50 mcg Glucose (Dextrose 40% Gel 15 Gm Tube) 0 gm PO PRN PRN PRN Reason: Hypoglycemia Stop: 07/31/24 08:04 Heparin Sodium (Porcine) (Heparin 10,000 Unit/10 Ml Vial) 2,000 unit IV PRN PRN PRN Reason: Dialysis Stop: 08/01/24 09:40 Last Admin: 08/08/23 14:28 Dose: 2,000 unit Heparin Sodium (Porcine) (Heparin 5,000 Unit/Ml Vial) 5,000 unit SUBCUT Q8HR KACI Stop: 08/01/24 13:59 Last Admin: 08/10/23 05:35 Dose: 5,000 unit Heparin Sodium (Porcine) (Heparin 10,000 Unit/10 Ml Vial) 1,000 unit IV PRN PRN PRN Reason: Dialysis Stop: 08/05/24 10:45 Last Admin: 08/08/23 14:29 Dose: 1,000 unit Heparin Sodium (Porcine) (Heparin 10,000 Unit/10 Ml Vial) 4,100 unit IV PRN PRN PRN Reason: Dialysis Stop: 08/07/24 14:32 Last Admin: 08/08/23 15:01 Dose: 4,100 unit Hydralazine HCl (Hydralazine 20 Mg/Ml Vial) 10 mg IV-PUSH Q4H PRN PRN Reason: Hypertension Stop: 08/07/24 12:07 Sodium Chloride (0.9% Sodium Chloride 1,000 Ml) 1,000 mls @ 0 mls/hr MISCELLANE.Q0M PRN PRN Reason: Dialysis Stop: 07/31/24 10:31 Last Infusion: 08/06/23 14:21 Dose: Infused Sodium Chloride (0.9% Sodium Chloride 1,000 Ml) 1,000 mls @ 0 mls/hr MISCELLANE.Q0M PRN PRN Reason: Dialysis Stop: 08/01/24 09:40 Last Infusion: 08/08/23 14:31 Dose: Infused Dexmedetomidine HCl 400 mcg/ (Dextrose) 100 mls @ 4.84 mls/hr IV .[id number] [facility]; Protocol Stop: 08/04/24 10:14 Last Admin: 08/10/23 08:03 Dose: 1.2 mcg/kg/hr, 29.04 mls/hr Midazolam HCl (Versed) 100 mg in 100 mls @ 1 mls/hr IV .Q24H [facility]; Protocol Stop: 02/01/24 22:59 Last Titration: 08/10/23 09:47 Dose: 0 mg/hr, 0 mls/hr Insulin Aspart (Insulin Aspart 300 Units/3 Ml Insuln.Pen) 0 units SUBCUT Q6HR [facility]; Protocol Stop: 07/31/24 11:59 Last Admin: 08/10/23 05:35 Dose: 2 units Magnesium Hydroxide (Magnesium Hydroxide Susp 30 Ml Udc) 30 ml PO DAILY PRN PRN Reason: Constipation Stop: 08/02/24 22:13 Midazolam HCl (Midazolam/Pf 2 Mg/2 Ml Vial) 4 mg IV-PUSH Q3H PRN PRN Reason: Agitation Stop: 02/01/24 11:11 Last Admin: 08/05/23 22:41 Dose: 4 mg Midazolam HCl (Midazolam/Pf 2 Mg/2 Ml Vial) 4 mg IV-PUSH ONCE PRN PRN Reason: sedation Last Admin: 08/08/23 13:00 Dose: 4 mg Pantoprazole Sodium (Pantoprazole 40 Mg Vial) 40 mg IV-PUSH DAILY [facility] Stop: 07/31/24 08:59 Last Admin: 08/10/23 08:12 Dose: 40 mg Sennosides (Sennosides Syrup 8.8 Mg/5 Ml Udc) 8.8 mg PO BID [facility] Stop: 08/03/24 08:59 Last Admin: 08/10/23 08:11 Dose: 8.8 mg Sodium Chloride (Sodium Chloride 0.9 % 10 Ml Vial.Pf) 10 ml INJECTION PRN PRN PRN Reason: Dilution Stop: 07/31/24 08:06 Last Admin: 08/10/23 08:12 Dose: 10 ml Sodium Chloride (Sodium Chloride 0.9 % 10 Ml Syringe) 10 ml IV-PUSH PRN PRN PRN Reason: Flush Stop: 07/31/24 08:06 Last Admin: 08/10/23 08:12 Dose: 10 ml Sodium Chloride (Sodium Chloride 0.9 % 10 Ml Syringe) 0 ml IV-PUSH PRN PRN PRN Reason: Flush Stop: 07/31/24 10:31 Last Admin: 08/10/23 03:26 Dose: 10 ml Sodium Chloride (Sodium Chloride 0.9 % 10 Ml Syringe) 0 ml IV-PUSH PRN PRN PRN Reason: Flush Stop: 08/01/24 09:40 Last Admin: 08/09/23 22:21 Dose: 10 ml Sterile Water (Water For Injection,Sterile 10 Ml Vial) 1.2 ml INJECTION BID KACI Stop: 08/08/24 10:29 Last Admin: 08/10/23 08:12 Dose: 1.2 ml Ziprasidone (Ziprasidone 20 Mg Vial) 10 mg IM BID KACI Stop: 08/08/24 10:29 Last Admin: 08/10/23 08:12 Dose: 10 mg Allergies cefepime Allergy (Unknown, Verified 07/10/23 18:46) Hives lisinopril Allergy (Unknown, Verified 07/10/23 18:46) Swelling of Lip/Tongue/Throat, SWELLING metformin Allergy (Unknown, Verified 07/10/23 18:46) Back Pain, KIDNEY PAIN Results - Nephrology Labs 08/10/23 07:38 08/10/23 07:38 Labs: 08/10/23 07:38 BUN 56 H Creatinine 3.49 H D Radiology Impressions Impressions - last 24 hours: Impressions Brain MRI 08/08/23 17:15 IMPRESSION: There is a T2 FLAIR hyperintense structure projecting to the right of midline emanating from the falx along the interhemispheric fissure measuring 1.6 x 0.8 x1.0 cm. No acute intracranial pathology. Chronic age-related neurodegenerative changes are noted, as above. Impression dictated by: Nathan Lemus M.D.08/08/2023 3:36 PM Dictation Location: [place] [address] ADDENDUM: 08/09/23 7870 IMPRESSION: There is a T2 FLAIR hyperintense structure projecting to the right of midline emanating from the falx along the interhemispheric fissure measuring 1.6 x 0.8 x1.0 cm. 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 No acute intracranial pathology. Chronic age-related neurodegenerative changes are noted, as above. Impression dictated by: Nathan Lemus M.D.08/09/2023 11:41 AM Dictation Location: [facility] Chest X-Ray 08/10/23 05:00 IMPRESSION: Unchanged chest. Impression dictated by: Nathan Lemus M.D.08/10/2023 8:01 AM Dictation Location: [facility] Any impression(s) listed above is documentation that was entered by the reading physician into a diagnostic report(s) for Sudeep Diego JR. I have reviewed the report(s) and am incorporating any findings in the treatment plan of this patient where applicable. A&P - Nephrology Assessment/Plan (1) SONYA (acute kidney injury): Assessment/Problem Details: Patient developed SONYA during his previous admission on June 2023 with left foot infection and staph bacteremia with no evidence of recovery currently on dialysis. Baseline creatinine was 1.1 mg/dL. Patient gets dialysis on MWF schedule (2) Acute pulmonary edema: Assessment/Problem Details: Patient presents with shortness of breath and respiratory failure. Chest x-ray showed pulmonary congestion with evidence of bilateral infiltrate. 2D echo showed dilated IVC with abnormal collapsibility suggestive of volume overload (3) Acute hypoxic respiratory failure: Assessment/Problem Details: Patient has bilateral infiltrate on chest x-ray, respiratory swab was positive for influenza A. Patient is currently getting treatment for healthcare associated pneumonia as well since he has recent hospitalization (4) T2DM (type 2 diabetes mellitus): (5) Elevated troponin level not due to acute coronary syndrome: (6) Anemia of renal disease: Assessment/Problem Details: He has anemia in the setting of SONYA with superimposed infection. Patient has elevated ferritin and low iron saturation in setting of infection. Plan * No need for hemodialysis session today. Next hemodialysis session will be tomorrow * ANCA, and anti-GBM antibodies are negative. SUSANA positive for SLATE SPLITTER antibodies. Not sure about the clinical significant of these. Might have to do kidney biopsy when the patient is more stable. * Serum sodium level remains low despite significant ultrafiltration. Will aim for high ultrafiltration tomorrow * Blood pressure remains elevated this morning. I will add Norvasc 5 mg p.o daily. Patient has been also on as needed hydralazine * Patient had 2 units of packed RBCs earlier this admission. Hemoglobin is up to 10.2 Will continue to monitor H&H and transfuse as needed * Vent management as directed by pulmonary service * Will monitor daily intake, output and renal panel to adjust medications and dialysis prescription as indicated. Documented By: Sanket Hammer MD 08/10/23 1029 Signed By: <Electronically signed by Sanket Hammer MD> 08/10/23 1031 [facility] Work Phone: [phone] 277-425903-16-2024 Progress note Author Eulogio Ruvalcaba [facility] August 09, 2023 2:29pm Note Date/Time August 09, 2023 2:2 9pm [facility] [address] [place] [address] Hospitalist Progress Note Signed Patient: Sudeep Diego JR MR#: [id number] : 1950 Acct:[id number] Age/Sex: 72 / M Adm Date: 4 Loc: Room: [address] [place] [address] Type: ADM IN Attending Dr: Eulogio Ruvalcaba MD Copies to: ~ Date of Service: 08/09/2023 Subjective Subjective Narrative: Seen and examined On mechanical ventilation with FIO2 40% Sedated by Versed. On Precedex infusion NO fever Exam Physical Exam Vital Signs: Temp Pulse Resp BP Pulse Ox O2 Del Method FiO2 98.4 F 66 24 114/61 97 Mechanical Ventilation 35 08/09/23 11:59 08/09/23 13:48 08/09/23 13:48 08/09/23 13:48 08/09/23 13:48 08/09/23 13:48 08/09/23 13:48 Objective Lab Results 08/09/23 04:38 08/09/23 04:38 ABG Interpretation ABG results: 08/09/23 04:00 ABG pH 7.52 H ABG pCO2 31.5 L ABG pO2 61.0 L ABG HCO3 24.9 ABG Total CO2 25.8 ABG O2 Saturation 92.0 L ABG O2 Content 6.2 L ABG Base Excess 2.3 Meds Allergies and Active Meds Allergies cefepime Allergy (Unknown, Verified 07/10/23 18:46) Hives lisinopril Allergy (Unknown, Verified 07/10/23 18:46) Swelling of Lip/Tongue/Throat, SWELLING metformin Allergy (Unknown, Verified 07/10/23 18:46) Back Pain, KIDNEY PAIN Active Meds: Active Medications Generic Name Dose Route Start Last Admin Trade Name Freq PRN Reason Stop Dose Admin Acetaminophen 650 mg 08/01/23 14:13 08/07/23 16:44 Acetaminophen 325 Mg Tablet PO 07/31/24 14:12 650 mg Q6H PRN Administration Pain Albuterol 6 puff 08/01/23 12:00 08/09/23 11:23 Albuterol Hfa 200 Puff/18 Gm Inhaler VENT 07/31/24 11:59 6 puff Q6HR KACI Administration Chlorhexidine Gluconate 15 ml 08/01/23 09:00 08/09/23 08:25 Chlorhexidine Gluconate 0.12% 15 Ml Udc MUCOUS MEM 07/31/24 08:59 15 ml BID KACI Administration Dextrose 0 gm 08/01/23 08:05 Dextrose 50% In Water 25 Gm/50 Ml Syringe IV-PUSH 07/31/24 08:04 PRN PRN Hypoglycemia Docusate Sodium 100 mg 08/04/23 09:00 08/09/23 08:25 Docusate Liquid 100 Mg/10 Ml Udc PO 08/03/24 08:59 100 mg BID KACI Administration Fentanyl Citrate 50 mcg 08/02/23 09:44 08/03/23 21:01 Fentanyl/Pf 100 Mcg/2 Ml Vial IV-PUSH 50 mcg Q2H PRN Administration Pain Scale 4 - 7 Glucose 0 gm 08/01/23 08:05 Dextrose 40% Gel 15 Gm Tube PO 07/31/24 08:04 PRN PRN Hypoglycemia Heparin Sodium (Porcine) 2,000 unit 08/02/23 09:41 08/08/23 14:28 Heparin 10,000 Unit/10 Ml Vial IV 08/01/24 09:40 2,000 unit PRN PRN Administration Dialysis Heparin Sodium (Porcine) 5,000 unit 08/02/23 14:00 08/09/23 13:41 Heparin 5,000 Unit/Ml Vial SUBCUT 08/01/24 13:59 5,000 unit Q8HR KACI Administration Heparin Sodium (Porcine) 1,000 unit 08/06/23 10:46 08/08/23 14:29 Heparin 10,000 Unit/10 Ml Vial IV 08/05/24 10:45 1,000 unit PRN PRN Administration Dialysis Heparin Sodium (Porcine) 4,100 unit 08/08/23 14:33 08/08/23 15:01 Heparin 10,000 Unit/10 Ml Vial IV 08/07/24 14:32 4,100 unit PRN PRN Administration Dialysis Hydralazine HCl 10 mg 08/08/23 12:08 Hydralazine 20 Mg/Ml Vial IV-PUSH 08/07/24 12:07 Q4H PRN Hypertension Sodium Chloride 1,000 mls @ 0 mls/hr 08/01/23 10:32 08/06/23 14:21 0.9% Sodium Chloride 1,000 Ml MISCELLANE 07/31/24 10:31 Infused .Q0M PRN Infusion Dialysis As Directed Sodium Chloride 1,000 mls @ 0 mls/hr 08/02/23 09:41 08/08/23 14:31 0.9% Sodium Chloride 1,000 Ml MISCELLANE 08/01/24 09:40 Infused .Q0M PRN Infusion Dialysis As Directed Dexmedetomidine HCl 400 mcg/ 100 mls @ 4.84 mls/hr 08/05/23 10:15 08/09/23 12:37 Dextrose IV 08/04/24 10:14 1.2 mcg/kg/hr .[id number] KACI 29.04 mls/hr Administration Protocol 0.2 MCG/KG/HR Midazolam HCl 100 mg in 100 mls @ 1 mls/hr 08/05/23 23:00 08/09/23 11:40 Versed IV 02/01/24 22:59 3 mg/hr .Q24H KACI 3 mls/hr Titration Protocol 1 MG/HR Insulin Aspart 0 units 08/01/23 12:00 08/09/23 11:38 Insulin Aspart 300 Units/3 Ml Insuln.Pen SUBCUT 07/31/24 11:59 2 units Q6HR KACI Administration Protocol Magnesium Hydroxide 30 ml 08/03/23 22:14 Magnesium Hydroxide Susp 30 Ml Udc PO 08/02/24 22:13 DAILY PRN Constipation Midazolam HCl 4 mg 08/05/23 11:12 08/05/23 22:41 Midazolam/Pf 2 Mg/2 Ml Vial IV-PUSH 02/01/24 11:11 4 mg Q3H PRN Administration Agitation Midazolam HCl 4 mg 08/07/23 12:34 08/08/23 13:00 Midazolam/Pf 2 Mg/2 Ml Vial IV-PUSH 4 mg ONCE PRN Administration sedation Pantoprazole Sodium 40 mg 08/01/23 09:00 08/09/23 08:25 Pantoprazole 40 Mg Vial IV-PUSH 07/31/24 08:59 40 mg DAILY KACI Administration Sennosides 8.8 mg 08/04/23 09:00 08/09/23 08:25 Sennosides Syrup 8.8 Mg/5 Ml Udc PO 08/03/24 08:59 8.8 mg BID KACI Administration Sodium Chloride 10 ml 08/01/23 08:07 08/09/23 08:25 Sodium Chloride 0.9 % 10 Ml Vial.Pf INJECTION 07/31/24 08:06 10 ml PRN PRN Administration Dilution Sodium Chloride 10 ml 08/01/23 08:07 08/09/23 08:25 Sodium Chloride 0.9 % 10 Ml Syringe IV-PUSH 07/31/24 08:06 10 ml PRN PRN Administration Flush Sodium Chloride 0 ml 08/01/23 10:32 08/08/23 14:29 Sodium Chloride 0.9 % 10 Ml Syringe IV-PUSH 07/31/24 10:31 40 ml PRN PRN Administration Flush Sodium Chloride 0 ml 08/02/23 09:41 08/04/23 16:49 Sodium Chloride 0.9 % 10 Ml Syringe IV-PUSH 08/01/24 09:40 40 ml PRN PRN Administration Flush Sterile Water 1.2 ml 08/09/23 10:30 08/09/23 10:43 Water For Injection,Sterile 10 Ml Vial INJECTION 08/08/24 10:29 1.2 ml BID KACI Administration Ziprasidone 10 mg 08/09/23 10:30 08/09/23 10:43 Ziprasidone 20 Mg Vial IM 08/08/24 10:29 10 mg BID KACI Administration A&P - Hospitalist Assessment/Plan (1) Acute hypoxic respiratory failure: (2) Acute pulmonary edema: (3) ESRD (end stage renal disease): (4) Leukocytosis: (5) T2DM (type 2 diabetes mellitus): (6) Hyperlipemia: (7) HTN (hypertension): (8) PAD (peripheral artery disease): (9) SONYA (acute kidney injury): Plan ASSESSMENT AND PLAN: 08/09/2023 Acute hypoxic respiratory failure Acute influenza A EEG:Normal-appearing routine EEG. Normal electrical background. No epileptiform discharges. No seizures. MRI brain Neurology is following ICU team is following Severe progressive anemia, most likely related to chronic kidney disease and chronic disease with his recent diabetic foot. Hemoglobin and hematocrit are stable 9.3/27.5 Recent severe issues with diabetic foot with kim osteomyelitis, visible bone, requiring a transmetatarsal amputation the previous hospital stay on 07/18/2023. Recent MSSA osteomyelitis of the left forefoot, appears to be treated successfully with a trans metatarsal amputation. No fever No leukocytosis Continue meropenem Diabetes mellitus type 2, described as brittle, with recent hemoglobin A1c uncontrolled at 8.1. Accu-Check every 6 hours Insulin sliding scale History of peripheral arterial disease with angioplasty to the left lower extremity in the past. History of hypertension: Controlled History of dyslipidemia. n.p.o. 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 Hyponatremia: trending down . Nephrology is following DVT prophylaxis heparin Documented By: Eulogio Ruvalcaba MD 08/09/231428 Signed By: <Electronically signed by Eulogio Ruvalcaba MD> 08/09/231428 [facility] Work Phone: 1(310) 307-198903-16-2024 Progress note Author Debbie Dennis [facility] August 09, 2023 1:14pm Note Date/Time August 09, 2023 11: 39am [facility] [address] [place] [address] Neurology Progress Note Signed Patient: Sudeep Diego JR MR#: [id number] : 1950 Acct:[id number] Age/Sex: 72 / M Adm Date: 4 Loc: Room: [address] [place] [address] Type: ADM IN Attending Dr: Eulogio Ruvalcaba MD Copies to: ~ Date of Service: 08/09/2023 Exam Physical Exam Vital Signs: Temp Pulse Resp BP Pulse Ox O2 Del Method FiO2 98.4 F 68 20 123/65 96 Mechanical Ventilation 40 08/09/23 08:00 08/09/23 11:00 08/09/23 11:00 08/09/23 11:00 08/09/23 11:00 08/09/23 11:00 08/09/23 11:00 Narrative: Patient is in the bed intubated. He is not getting sedation Patient does not respond to any commands or answer any questions no attempt at verbal communication No significant spontaneous movement is observed Pupils are pinpoint at approximately 2 mm but do appear to be reactive Positive corneal reflex bilaterally both direct and consensual No doll's eyes Mild gag with advancement of the ET tube He does grimace and move his head away from pinprick to the nose Withdrawal there is not significant withdraw in all 4 extremities Motor there is not significant withdrawal to noxious stimuli in all 4 extremities Babinski is negative Objective Vital Signs Vital Signs: Vital Signs - 24 hr 08/08/23 12:00 08/08/23 12:00 08/08/23 12:30 Temperature Pulse Rate Pulse Rate [Monitor] 70 Respiratory Rate 20 Blood Pressure Blood Pressure [Left Arm] 160/77 H 02 Sat by Pulse Oximetry 96 96 Oxygen Delivery Method Mechanical Ventilation Fraction of Inspired Oxygen 40 40 08/08/23 13:00 08/08/23 13:30 08/08/23 13:40 Temperature 97.4 F L Pulse Rate Pulse Rate [Monitor] 97 93 Respiratory Rate 28 H Blood Pressure Blood Pressure [Left Arm] 190/82 H 204/91 H 02 Sat by Pulse Oximetry 93 L Oxygen Delivery Method Mechanical Ventilation Fraction of Inspired Oxygen 50 40 08/08/23 14:00 08/08/23 14:00 08/08/23 14:00 Temperature Pulse Rate Pulse Rate [Monitor] 90 89 Respiratory Rate 25 H Blood Pressure Blood Pressure [Left Arm] 182/86 H 182/86 H 02 Sat by Pulse Oximetry 91 L Oxygen Delivery Method Mechanical Ventilation Fraction of Inspired Oxygen 40 40 08/08/23 14:33 08/08/23 14:44 08/08/23 15:00 Temperature Pulse Rate 93 Pulse Rate [Monitor] 93 93 Respiratory Rate Blood Pressure 136/72 Blood Pressure [Left Arm] 162/80 H 136/72 02 Sat by Pulse Oximetry Oxygen Delivery Method Fraction of Inspired Oxygen 08/08/23 15:00 08/08/23 15:00 08/08/23 15:30 Temperature Pulse Rate Pulse Rate [Monitor] 90 97 Respiratory Rate 30 H Blood Pressure Blood Pressure [Left Arm] 132/74 125/71 02 Sat by Pulse Oximetry 90 L Oxygen Delivery Method Mechanical Ventilation Fraction of Inspired Oxygen 40 40 08/08/23 16:00 08/08/23 16:00 08/08/23 16:00 Temperature Pulse Rate Pulse Rate [Monitor] 96 Respiratory Rate Blood Pressure Blood Pressure [Left Arm] 122/72 02 Sat by Pulse Oximetry Oxygen Delivery Method Mechanical Ventilation Fraction of Inspired Oxygen 40 40 08/08/23 16:00 08/08/23 16:30 08/08/23 16:36 Temperature Pulse Rate 99 Pulse Rate [Monitor] 96 97 Respiratory Rate 30 H Blood Pressure 128/78 Blood Pressure [Left Arm] 122/72 128/78 02 Sat by Pulse Oximetry 93 L Oxygen Delivery Method Mechanical Ventilation Fraction of Inspired Oxygen 40 08/08/23 17:00 08/08/23 17:00 08/08/23 17:00 Temperature Pulse Rate Pulse Rate [Monitor] 103 H 102 H Respiratory Rate 30 H Blood Pressure Blood Pressure [Left Arm] 142/76 H 142/76 H 02 Sat by Pulse Oximetry 93 L Oxygen Delivery Method Mechanical Ventilation Fraction of Inspired Oxygen 40 40 08/08/23 17:28 08/08/23 17:30 08/08/23 17:37 Temperature Pulse Rate 101 H Pulse Rate [Monitor] 106 H 103 H Respiratory Rate 33 H Blood Pressure Blood Pressure [Left Arm] 131/70 124/66 02 Sat by Pulse Oximetry Oxygen Delivery Method Fraction of Inspired Oxygen 40 08/08/23 17:47 08/08/23 18:00 08/08/23 18:00 Temperature 97.9 F Pulse Rate Pulse Rate [Monitor] 99 96 Respiratory Rate 34 H 30 H Blood Pressure Blood Pressure [Left Arm] 149/77 H 137/72 02 Sat by Pulse Oximetry 93 L 93 L Oxygen Delivery Method Mechanical Ventilation Fraction of Inspired Oxygen 40 40 40 08/08/23 19:00 08/08/23 19:00 08/08/23 19:57 Temperature Pulse Rate 100 Pulse Rate [Monitor] 94 Respiratory Rate 30 H 28 H Blood Pressure Blood Pressure [Left Arm] 167/79 H 02 Sat by Pulse Oximetry 94 L Oxygen Delivery Method Mechanical Ventilation Fraction of Inspired Oxygen 40 40 40 08/08/23 20:00 08/08/23 20:00 08/08/23 20:00 Temperature 98.4 F Pulse Rate Pulse Rate [Monitor] 100 Respiratory Rate 30 H Blood Pressure Blood Pressure [Left Arm] 149/75 H 02 Sat by Pulse Oximetry 93 L Oxygen Delivery Method Mechanical Ventilation Mechanical Ventilation Fraction of Inspired Oxygen 40 40 40 08/08/23 20:50 08/08/23 20:54 08/08/23 21:00 Temperature Pulse Rate 99 99 Pulse Rate [Monitor] Respiratory Rate Blood Pressure 153/82 H 153/82 H Blood Pressure [Left Arm] 02 Sat by Pulse Oximetry Oxygen Delivery Method Fraction of Inspired Oxygen 40 08/08/23 21:00 08/08/23 22:00 08/08/23 22:00 Temperature Pulse Rate Pulse Rate [Monitor] 96 98 Respiratory Rate 30 H 30 H Blood Pressure Blood Pressure [Left Arm] 136/77 195/95 H 02 Sat by Pulse Oximetry 94 L 95 Oxygen Delivery Method Mechanical Ventilation Mechanical Ventilation Fraction of Inspired Oxygen 40 40 40 08/08/23 23:00 08/08/23 23:00 08/08/23 23:43 Temperature Pulse Rate 92 Pulse Rate [Monitor] 88 Respiratory Rate 30 H 31 H Blood Pressure Blood Pressure [Left Arm] 169/82 H 02 Sat by Pulse Oximetry 94 L Oxygen Delivery Method Mechanical Ventilation Fraction of Inspired Oxygen 40 40 40 08/09/23 00:00 08/09/23 00:00 08/09/23 00:00 Temperature Pulse Rate Pulse Rate [Monitor] 99 Respiratory Rate 28 H Blood Pressure Blood Pressure [Left Arm] 130/67 02 Sat by Pulse Oximetry 92 L Oxygen Delivery Method Mechanical Ventilation Mechanical Ventilation Fraction of Inspired Oxygen 40 40 40 08/09/23 01:00 08/09/23 01:00 08/09/23 01:30 Temperature Pulse Rate 89 Pulse Rate [Monitor] 90 Respiratory Rate 27 H Blood Pressure 147/80 H Blood Pressure [Left Arm] 145/75 H 02 Sat by Pulse Oximetry 95 Oxygen Delivery Method Mechanical Ventilation Fraction of Inspired Oxygen 40 40 08/09/23 02:00 08/09/23 02:00 08/09/23 02:34 Temperature Pulse Rate 89 Pulse Rate [Monitor] 88 Respiratory Rate 25 H Blood Pressure 147/80 H Blood Pressure [Left Arm] 147/80 H 02 Sat by Pulse Oximetry 95 Oxygen Delivery Method Mechanical Ventilation Fraction of Inspired Oxygen 40 40 08/09/23 03:00 08/09/23 03:00 08/09/23 03:40 Temperature Pulse Rate Pulse Rate [Monitor] 82 Respiratory Rate 21 Blood Pressure Blood Pressure [Left Arm] 130/70 02 Sat by Pulse Oximetry 97 Oxygen Delivery Method Mechanical Ventilation Mechanical Ventilation Fraction of Inspired Oxygen 40 40 40 08/09/23 03:53 08/09/23 04:00 08/09/23 04:00 Temperature 99.3 F H Pulse Rate 86 Pulse Rate [Monitor] 84 Respiratory Rate 26 H 25 H Blood Pressure Blood Pressure [Left Arm] 132/70 02 Sat by Pulse Oximetry 96 Oxygen Delivery Method Mechanical Ventilation Fraction of Inspired Oxygen 40 40 40 08/09/23 04:46 08/09/23 04:46 08/09/23 05:00 Temperature Pulse Rate 83 83 Pulse Rate [Monitor] Respiratory Rate Blood Pressure 114/60 114/60 Blood Pressure [Left Arm] 02 Sat by Pulse Oximetry Oxygen Delivery Method Fraction of Inspired Oxygen 40 08/09/23 05:00 08/09/23 06:00 08/09/23 06:00 Temperature Pulse Rate Pulse Rate [Monitor] 81 76 Respiratory Rate 27 H 26 H Blood Pressure Blood Pressure [Left Arm] 150/74 H 138/70 02 Sat by Pulse Oximetry 97 95 Oxygen Delivery Method Mechanical Ventilation Mechanical Ventilation Fraction of Inspired Oxygen 40 40 40 08/09/23 07:00 08/09/23 08:00 08/09/23 08:00 Temperature 98.4 F Pulse Rate Pulse Rate [Monitor] 78 Respiratory Rate 24 Blood Pressure Blood Pressure [Left Arm] 112/64 02 Sat by Pulse Oximetry 96 Oxygen Delivery Method Mechanical Ventilation Fraction of Inspired Oxygen 40 40 40 08/09/23 08:00 08/09/23 08:13 08/09/23 08:20 Temperature Pulse Rate 70 80 Pulse Rate [Monitor] Respiratory Rate 27 H Blood Pressure 145/77 H Blood Pressure [Left Arm] 02 Sat by Pulse Oximetry Oxygen Delivery Method Mechanical Ventilation Fraction of Inspired Oxygen 40 40 08/09/23 09:00 08/09/23 09:00 08/09/23 09:13 Temperature Pulse Rate 70 Pulse Rate [Monitor] 73 Respiratory Rate 22 Blood Pressure 145/77 H Blood Pressure [Left Arm] 145/77 H 02 Sat by Pulse Oximetry 95 Oxygen Delivery Method Mechanical Ventilation Fraction of Inspired Oxygen 40 40 08/09/23 10:00 08/09/23 10:00 08/09/23 11:00 Temperature Pulse Rate Pulse Rate [Monitor] 70 68 Respiratory Rate 20 20 Blood Pressure Blood Pressure [Left Arm] 117/62 123/65 02 Sat by Pulse Oximetry 96 96 Oxygen Delivery Method Mechanical Ventilation Mechanical Ventilation Fraction of Inspired Oxygen 40 40 40 08/09/23 11:00 Temperature Pulse Rate Pulse Rate [Monitor] Respiratory Rate Blood Pressure Blood Pressure [Left Arm] 02 Sat by Pulse Oximetry Oxygen Delivery Method Fraction of Inspired Oxygen 40 Labs 08/09/23 04:38 08/09/23 04:38 Assessment/Plan (1) Encephalopathy: Assessment/Problem Details: DATA REVIEW: -Head CT August 06, 2023 is without acute findings. -MRI brain personally reviewed, radiology report pending. I see a 1 cm right parafalcine lesion that has diffusion restriction but no ADC correlate and has faint FLAIR hyperintensity, I cannot tell if it is intra-axial or extra-axial. ASSESSMENT: 72 year old male with metabolic encephalopathy secondary to influenza and respiratory failure. Patient remains intubated. He does have signs of some cortical function with grimace and withdraw from noxious stimuli/pinprick to thenose. He however is not following commands or answering questions at this time. MRI of the brain was nonacute with evidence of a meningioma that is incidental finding. At this time unfortunately just need to give him more time and see if he improves cognitively. PLAN: Plan: MRI brain : There is a T2 FLAIR hyperintense structure projecting to the right of midline emanating from the falx along the interhemispheric fissure measuring 1.6 x 0.8 x 1.0 cm. Consistent with meningioma EEG was slow Continue with care by the other services Will follow along [facility] for gradual improvement however unfortunately there is no guarantee Plan: Plan Documented By: Debbie Dennis DO 08/09/23 1138 Signed By: <Electronically signed by DO Debbie Dennis> 08/09/23 1317 [facility] Work Phone: [phone] Progress note Author Sanket Hammer [facility] August 09, 2023 11:41am Note Date/Time August 09, 2023 11: 41am [facility] [address] [place] [address] Nephrology Progress Note Signed Patient: Sudeep Diego JR MR#: [id number] : 1950 Acct:[id number] Age/Sex: 72 / M Adm Date: 4 Loc: Room: [address] [place] [address] Type: ADM IN Attending Dr: Eulogio Ruvalcaba MD Copies to: ~ Date of Service: 08/09/2023 Subjective Subjective Narrative: Mr. Diego is a 72-year-old male with history of DM2, HTN, PAD and prostate cancer. Patient was recently started on hemodialysis during his admission in June 2023 for SONYA possibly related to ATN versus Staph aureus glomerulonephritis. 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 Creatinine has increased up to 5 mg/dL with no evidence of recovery. Patient was [facility] to [facility]. Patient presented to [facility] from his nursing facility with severe shortness of breath requiring intubation. Chest x-ray showed bilateral pulmonary infiltrate with possible pulmonary edema. Subsequently the patient was transferred to [facility] and he continues to be on vent. Respiratory swab showed evidence of influenza A. Patient is currently being treated for healthcare associated pneumonia with vancomycin and meropenem. Troponin was found to be elevated up to 1700. Hemoglobin was only 6.5 g/dL in setting of infection. Cardiology evaluated the patient and no intervention is planned at this point at the patient most likely has type II demand decreased cardiac perfusion. Nephrology was consulted for ESRD and dialysis. Interval history: Patient is being seen and examined in the ICU . Patient is calm today with higher Precedex dose. Patient tolerated hemodialysis and well yesterday with ultrafiltration of 4 L. Serum sodium level remains low at 127 mmol/L despite significant UF Patient remains ventilated. FiO2 40%. Chest x-ray from continues to show bilateral airspace disease continues to be on NG tube feeding There has been no recovery of kidney function. Continues to be oliguric Blood pressure is well-controlled. Cannot do review of system Exam Physical Exam Vital Signs: Temp Pulse Resp BP Pulse Ox O2 Del Method FiO2 98.4 F 68 20 123/65 96 Mechanical Ventilation 40 08/09/23 08:00 08/09/23 11:00 08/09/23 11:00 08/09/23 11:00 08/09/23 11:00 08/09/23 11:00 08/09/23 11:00 Narrative: General: Patient is calm. No acute distress Head :atraumatic normocephalic Eyes: PERRLA. Neck: no JVD no bruit. Heart: S1-S2. RRR Respiratory: Equal air entry. No wheezing no crackles Abdomen: Soft, no distention Neurology: Sedated. Extremity. No cyanosis. No edema Skin: No skin rash Objective Intake and Output I&O: Intake & Output 08/06/23 08/07/23 08/08/23 08/09/23 23:59 23:59 23:59 23:59 Intake Total 1979 / 1979 1073 / 1073 869 / 869 340 / 340 Output Total 4643 / 4643 65 / 65 4411 / 4411 0 / 0 Balance -2663 / -2663 1008 / 1008 -3542 / -3542 340 / 340 Weight 213 lb 6.519 oz 207 lb 14.334 oz 209 lb 3.499 oz 200 lb 2.876 oz Meds and Allergies Meds: Active Medications Acetaminophen (Acetaminophen 325 Mg Tablet) 650 mg PO Q6H PRN PRN Reason: Pain Stop: 07/31/24 14:12 Last Admin: 08/07/23 16:44 Dose: 650 mg Albuterol (Albuterol Hfa 200 Puff/18 Gm Inhaler) 6 puff VENT Q6HR KACI Stop: 07/31/24 11:59 Last Admin: 08/09/23 11:23 Dose: 6 puff Chlorhexidine Gluconate (Chlorhexidine Gluconate 0.12% 15 Ml Udc) 15 ml MUCOUS MEM BID KACI Stop: 07/31/24 08:59 Last Admin: 08/09/23 08:25 Dose: 15 ml Dextrose (Dextrose 50% In Water 25 Gm/50 Ml Syringe) 0 gm IV-PUSH PRN PRN PRN Reason: Hypoglycemia Stop: 07/31/24 08:04 Docusate Sodium (Docusate Liquid 100 Mg/10 Ml Udc) 100 mg PO BID KACI Stop: 08/03/24 08:59 Last Admin: 08/09/23 08:25 Dose: 100 mg Fentanyl Citrate (Fentanyl/Pf 100 Mcg/2 Ml Vial) 50 mcg IV-PUSH Q2H PRN PRN Reason: Pain Scale 4 - 7 Last Admin: 08/03/23 21:01 Dose: 50 mcg Glucose (Dextrose 40% Gel 15 Gm Tube) 0 gm PO PRN PRN PRN Reason: Hypoglycemia Stop: 07/31/24 08:04 Heparin Sodium (Porcine) (Heparin 10,000 Unit/10 Ml Vial) 2,000 unit IV PRN PRN PRN Reason: Dialysis Stop: 08/01/24 09:40 Last Admin: 08/08/23 14:28 Dose: 2,000 unit Heparin Sodium (Porcine) (Heparin 5,000 Unit/Ml Vial) 5,000 unit SUBCUT Q8HR [facility] Stop: 08/01/24 13:59 Last Admin: 08/09/23 06:30 Dose: 5,000 unit Heparin Sodium (Porcine) (Heparin 10,000 Unit/10 Ml Vial) 1,000 unit IV PRN PRN PRN Reason: Dialysis Stop: 08/05/24 10:45 Last Admin: 08/08/23 14:29 Dose: 1,000 unit Heparin Sodium (Porcine) (Heparin 10,000 Unit/10 Ml Vial) 4,100 unit IV PRN PRN PRN Reason: Dialysis Stop: 08/07/24 14:32 Last Admin: 08/08/23 15:01 Dose: 4,100 unit Hydralazine HCl (Hydralazine 20 Mg/Ml Vial) 10 mg IV-PUSH Q4H PRN PRN Reason: Hypertension Stop: 08/07/24 12:07 Sodium Chloride (0.9% Sodium Chloride 1,000 Ml) 1,000 mls @ 0 mls/hr MISCELLANE.Q0M PRN PRN Reason: Dialysis Stop: 07/31/24 10:31 Last Infusion: 08/06/23 14:21 Dose: Infused Sodium Chloride (0.9% Sodium Chloride 1,000 Ml) 1,000 mls @ 0 mls/hr MISCELLANE.Q0M PRN PRN Reason: Dialysis Stop: 08/01/24 09:40 Last Infusion: 08/08/23 14:31 Dose: Infused Dexmedetomidine HCl 400 mcg/ (Dextrose) 100 mls @ 4.84 mls/hr IV .[id number] [facility]; Protocol Stop: 08/04/24 10:14 Last Admin: 08/09/23 09:13 Dose: 1.2 mcg/kg/hr, 29.04 mls/hr Midazolam HCl (Versed) 100 mg in 100 mls @ 1 mls/hr IV .Q24H [facility]; Protocol Stop: 02/01/24 22:59 Last Admin: 08/09/23 02:35 Dose: Not Given Magnesium Sulfate (Magnesium Sulf 2gm-*Swfi*) 2 gm in 50 mls @ 25 mls/hr IV ONCE ONE Stop: 08/09/23 12:12 Last Admin: 08/09/23 10:44 Dose: 25 mls/hr Insulin Aspart (Insulin Aspart 300 Units/3 Ml Insuln.Pen) 0 units SUBCUT Q6HR [facility]; Protocol Stop: 07/31/24 11:59 Last Admin: 08/09/23 06:30 Dose: 2 units Magnesium Hydroxide (Magnesium Hydroxide Susp 30 Ml Udc) 30 ml PO DAILY PRN PRN Reason: Constipation Stop: 08/02/24 22:13 Midazolam HCl (Midazolam/Pf 2 Mg/2 Ml Vial) 4 mg IV-PUSH Q3H PRN PRN Reason: Agitation Stop: 02/01/24 11:11 Last Admin: 08/05/23 22:41 Dose: 4 mg Midazolam HCl (Midazolam/Pf 2 Mg/2 Ml Vial) 4 mg IV-PUSH ONCE PRN PRN Reason: sedation Last Admin: 08/08/23 13:00 Dose: 4 mg Pantoprazole Sodium (Pantoprazole 40 Mg Vial) 40 mg IV-PUSH DAILY [facility] Stop: 07/31/24 08:59 Last Admin: 08/09/23 08:25 Dose: 40 mg Sennosides (Sennosides Syrup 8.8 Mg/5 Ml Udc) 8.8 mg PO BID [facility] Stop: 08/03/24 08:59 Last Admin: 08/09/23 08:25 Dose: 8.8 mg Sodium Chloride (Sodium Chloride 0.9 % 10 Ml Vial.Pf) 10 ml INJECTION PRN PRN PRN Reason: Dilution Stop: 07/31/24 08:06 Last Admin: 08/09/23 08:25 Dose: 10 ml Sodium Chloride (Sodium Chloride 0.9 % 10 Ml Syringe) 10 ml IV-PUSH PRN PRN PRN Reason: Flush Stop: 07/31/24 08:06 Last Admin: 08/09/23 08:25 Dose: 10 ml Sodium Chloride (Sodium Chloride 0.9 % 10 Ml Syringe) 0 ml IV-PUSH PRN PRN PRN Reason: Flush Stop: 07/31/24 10:31 Last Admin: 08/08/23 14:29 Dose: 40 ml Sodium Chloride (Sodium Chloride 0.9 % 10 Ml Syringe) 0 ml IV-PUSH PRN PRN PRN Reason: Flush Stop: 08/01/24 09:40 Last Admin: 08/04/23 16:49 Dose: 40 ml Sterile Water (Water For Injection,Sterile 10 Ml Vial) 1.2 ml INJECTION BID KACI Stop: 08/08/24 10:29 Last Admin: 08/09/23 10:43 Dose: 1.2 ml Ziprasidone (Ziprasidone 20 Mg Vial) 10 mg IM BID KACI Stop: 08/08/24 10:29 Last Admin: 08/09/23 10:43 Dose: 10 mg Allergies cefepime Allergy (Unknown, Verified 07/10/23 18:46) Hives lisinopril Allergy (Unknown, Verified 07/10/23 18:46) Swelling of Lip/Tongue/Throat, SWELLING metformin Allergy (Unknown, Verified 07/10/23 18:46) Back Pain, KIDNEY PAIN Results - Nephrology Labs 08/09/23 04:38 08/09/23 04:38 Labs: 08/09/23 04:38 BUN 35 H Creatinine 2.81 H D Radiology Impressions Impressions - last 24 hours: Impressions Brain MRI 08/08/23 17:15 IMPRESSION: There is a T2 FLAIR hyperintense structure projecting to the right of midline emanating from the falx along the interhemispheric fissure measuring 1.6 x 0.8 x1.0 cm. No acute intracranial pathology. Chronic age-related neurodegenerative changes are noted, as above. Impression dictated by: Nathan Lemus M.D.08/08/2023 3:36 PM Dictation Location: [place] [address] Chest X-Ray 08/09/23 05:00 IMPRESSION: Perihilar vascular prominence and interstitial prominence are redemonstrated. Improving airspace opacities noted in the right perihilar region. Impression dictated by: Nathan Lemus M.D.08/09/2023 8:15 AM Dictation Location: [place] [address] Any impression(s) listed above is documentation that was entered by the reading physician into a diagnostic report(s) for Sudeep Diego . I have reviewed the report(s) and am incorporating any findings in the treatment plan of this patient where applicable. A&P - Nephrology Assessment/Plan (1) SONYA (acute kidney injury): Assessment/Problem Details: Patient developed SONYA during his previous admission on June 2023 with left foot infection and staph bacteremia with no evidence of recovery currently on dialysis. Baseline creatinine was 1.1 mg/dL. Patient gets dialysis on MWF schedule (2) Acute pulmonary edema: Assessment/Problem Details: Patient presents with shortness of breath and respiratory failure. Chest x-ray showed pulmonary congestion with evidence of bilateral infiltrate. 2D echo showed dilated IVC with abnormal collapsibility suggestive of volume overload (3) Acute hypoxic respiratory failure: Assessment/Problem Details: Patient has bilateral infiltrate on chest x-ray, respiratory swab was positive for influenza A. Patient is currently getting treatment for healthcare associated pneumonia as well since he has recent hospitalization (4) T2DM (type 2 diabetes mellitus): (5) Elevated troponin level not due to acute coronary syndrome: (6) Anemia of renal disease: Assessment/Problem Details: He has anemia in the setting of SONYA with superimposed infection. Patient has elevated ferritin and low iron saturation in setting of infection. Plan * No need for hemodialysis session today. Will evaluate the need of hemodialysis in tomorrow * ANCA, and anti-GBM antibodies are negative. SUSANA positive for SLATE SPLITTER antibodies. Not sure about the clinical significant of these. Might have to do kidney biopsy and the patient is more stable. * Serum sodium level remains low despite significant ultrafiltration. Will DC free water flushes with NG tube.please keep output more than input * Blood pressure is better controlled with higher sedation dose Precedex dose. Patient as needed hydralazine * Patient had 2 units of packed RBCs earlier this admission. Hemoglobin level has been stable around 9-9.5 g deciliter. Will continue to monitor H&H and transfuse as needed * Vent management as directed by pulmonary service * Will monitor daily intake, output and renal panel to adjust medications and dialysis prescription as indicated. Documented By: Sanket Hammer MD 08/09/23 5298 Signed By: <Electronically signed by Sanket Hammer MD> 08/09/23 1144 [facility] Work Phone: [phone]) 761-104803-16-2024 Progress note Author Mehul Garrett [facility] August 09, 2023 11:30am Note Date/Time August 09, 2023 9:2 9am [facility] [address] [place] [address] Pulmonology Progress Note Signed Patient: Sudeep Diego JR MR#: [id number] : 1950 Acct:[id number] Age/Sex: 72 / M Adm Date: 4 Loc: Room: [address] [place] [address] Type: ADM IN Attending Dr: Eulogio Ruvalcaba MD Copies to: ~ Date of Service: 08/09/2023 Subjective Subjective Narrative: Patient is actually more calm and sedated today on Precedex drip as well as Versed drip. There were otherwise no other issues overnight. Exam Physical Exam Vital Signs: Temp Pulse Resp BP Pulse Ox O2 Del Method FiO2 98.4 F 70 22 145/77 H 95 Mechanical Ventilation 40 08/09/23 08:00 08/09/23 09:13 08/09/23 09:00 08/09/23 09:13 08/09/23 09:00 08/09/23 09:00 08/09/23 09:00 Const Nutritional Appearance: overweight Orientation: not alert and not awake HEENT Head: normal to inspection, normocephalic and atraumatic Ears: external ears normal Nose: external nose normal Face and sinus: normal facial exam Mouth: other (8.0 mm ID ET tube) Eyes Eyelids: eyelids normal Neck Neck: normal visual inspection and no lymphadenopathy Chest Chest palpation & inspection: normal inspection of the chest Resp Auscultation: clear to auscultation bilaterally, no rales, no rhonchi and no wheezes Cardio Rate: regular rate Rhythm: regular rhythm Heart Sounds: S1 normal, S2 normal, no gallops, no murmurs and no rubs GI Inspection: normal to inspection Palpation: soft and nontender Auscultation: hypoactive bowel sounds Rectal Exam: deferred General: deferred Skin General: no rashes or lesions noted (warm and dry) Extrem General: no pedal edema and amputation noted Transmetatarsal: left Objective Intake and Output I&O - Last 24 Hours: Intake & Output 08/08/23 08/09/23 08/09/23 23:59 07:59 15:59 Intake Total 160 / 869 240 / 340 100 / 340 Output Total 4301 / 4411 0 / 0 Balance -4141 / -3542 240 / 340 100 / 340 Weight 200 lb 2.876 oz Labs 08/09/23 04:38 08/09/23 04:38 Imaging and Cardiology Chest x-ray: Status: image reviewed by me Additional comments: Date of Service: 08/09/23 XR/XR chest 1V portable: on vent XR chest 1V portable 08/09/2023 5:57 AM SIGNS AND SYMPTOMS: Respiratory failure PROTOCOL: Frontal radiograph of the chest COMPARISON: 08/08/2023 FINDINGS: The trachea is midline. The ET tube, enteric tube, and tunneled right IJ line are within normal limits. The heart and mediastinal structures are within normal limits. Perihilarvascular prominence and interstitial prominence are redemonstrated. Improving airspace opacities noted in the right perihilar region. The bony thorax is intact. XR/XR chest 1V portable IMPRESSION: Perihilar vascular prominence and interstitial prominence are redemonstrated. Improving airspace opacities noted in the right perihilar region. Additional Results Results Comments: 08/09/23 04:00 ABG pH 7.52 H ABG pCO2 31.5 L ABG pO2 61.0 L ABG HCO3 24.9 ABG Total CO2 25.8 ABG O2 Saturation 92.0 L ABG O2 Content 6.2 L ABG Base Excess 2.3 14/500/40/5 Assessment/Plan Assessment/Plan (1) Acute hypoxic respiratory failure: (2) Acute pulmonary edema: (3) ESRD (end stage renal disease): (4) T2DM (type 2 diabetes mellitus): (5) PAD (peripheral artery disease): Plan Hospital day #8, ventilator day #8 for patient with respiratory failure, influenza A, diabetes mellitus, end-stage renal disease, and peripheral vasculardisease. The patient's chest x-ray actually looks somewhat better today. Results of MRI were reviewed and await further neurology recommendations. I will start the patient on scheduled IM Geodon twice daily and hopefully will be able to gradually wean Versed drip which will allow us to work toward extubation. Continue supportive care. Documented By: Mehul Garrett MD 4 0927 Signed By: <Electronically signed by MD Mehul Garrett> 08/09/23 1134 [facility] Work Phone: [phone]) [phone] Progress note Author Pravin Rivers [facility] August 08, 2023 2:10pm Note Date/Time August 08, 2023 2:1 0pm [facility] [address] [place] [address] Neurology Progress Note Signed Patient: Sudeep Diego JR MR#: [id number] : 1950 Acct:[id number] Age/Sex: 72 / M Adm Date: 4 Loc: Room: [address] [place] [address] Type: ADM IN Attending Dr: Vania Chacon MD Copies to: ~ Date of Service: 08/08/2023 Exam Physical Exam Vital Signs: Temp Pulse Resp BP Pulse Ox O2 Del Method FiO2 98.6 F 72 20 173/78 H 94 L Mechanical Ventilation 50 08/08/23 08:00 08/08/23 11:00 08/08/23 11:00 08/08/23 11:00 08/08/23 11:00 08/08/23 11:00 08/08/23 13:00 Objective Vital Signs Vital Signs: Vital Signs - 24 hr 08/07/23 15:00 08/07/23 15:00 08/07/23 16:00 Temperature Pulse Rate Pulse Rate [Monitor] 68 Respiratory Rate 23 Blood Pressure Blood Pressure [Left Arm] 101/56 L 02 Sat by Pulse Oximetry 92 L Oxygen Delivery Method Mechanical Ventilation Mechanical Ventilation Fraction of Inspired Oxygen 40 40 40 08/07/23 16:00 08/07/23 16:00 08/07/23 16:32 Temperature 100.1 F H Pulse Rate 72 Pulse Rate [Monitor] 64 Respiratory Rate 23 Blood Pressure 95/52 L Blood Pressure [Left Arm] 95/52 L 02 Sat by Pulse Oximetry 91 L Oxygen Delivery Method Mechanical Ventilation Fraction of Inspired Oxygen 40 40 08/07/23 16:52 08/07/23 16:52 08/07/23 16:53 Temperature Pulse Rate 73 73 72 Pulse Rate [Monitor] Respiratory Rate Blood Pressure 95/52 L 95/52 L 95/52 L Blood Pressure [Left Arm] 02 Sat by Pulse Oximetry Oxygen Delivery Method Fraction of Inspired Oxygen 08/07/23 17:00 08/07/23 17:00 08/07/23 18:00 Temperature Pulse Rate Pulse Rate [Monitor] 66 Respiratory Rate 23 Blood Pressure Blood Pressure [Left Arm] 116/57 L 02 Sat by Pulse Oximetry 94 L Oxygen Delivery Method Mechanical Ventilation Fraction of Inspired Oxygen 40 40 40 08/07/23 18:00 08/07/23 18:12 08/07/23 19:00 Temperature Pulse Rate 70 Pulse Rate [Monitor] 72 Respiratory Rate 34 H 27 H Blood Pressure Blood Pressure [Left Arm] 170/83 H 02 Sat by Pulse Oximetry 91 L Oxygen Delivery Method Mechanical Ventilation Fraction of Inspired Oxygen 40 40 40 08/07/23 19:00 08/07/23 19:39 08/07/23 20:00 Temperature 98.6 F Pulse Rate 69 Pulse Rate [Monitor] 70 69 Respiratory Rate 29 H 27 H Blood Pressure 120/59 L Blood Pressure [Left Arm] 118/58 L 143/68 H 02 Sat by Pulse Oximetry 94 L 95 Oxygen Delivery Method Mechanical Ventilation Mechanical Ventilation Fraction of Inspired Oxygen 40 40 08/07/23 20:00 08/07/23 20:58 08/07/23 21:00 Temperature Pulse Rate 70 Pulse Rate [Monitor] Respiratory Rate Blood Pressure 143/68 H Blood Pressure [Left Arm] 02 Sat by Pulse Oximetry Oxygen Delivery Method Fraction of Inspired Oxygen 40 40 08/07/23 21:00 08/07/23 21:10 08/07/23 21:51 Temperature Pulse Rate 69 72 Pulse Rate [Monitor] 70 Respiratory Rate 27 H 26 H Blood Pressure 120/59 L Blood Pressure [Left Arm] 120/59 L 02 Sat by Pulse Oximetry 95 Oxygen Delivery Method Mechanical Ventilation Fraction of Inspired Oxygen 40 40 08/07/23 22:00 08/07/23 22:00 08/07/23 23:00 Temperature Pulse Rate Pulse Rate [Monitor] 64 Respiratory Rate 19 Blood Pressure Blood Pressure [Left Arm] 127/59 L 02 Sat by Pulse Oximetry 96 Oxygen Delivery Method Mechanical Ventilation Fraction of Inspired Oxygen 40 40 40 08/07/23 23:00 08/07/23 23:56 08/07/23 23:57 Temperature Pulse Rate 66 66 Pulse Rate [Monitor] 65 Respiratory Rate 26 H Blood Pressure 103/64 103/64 Blood Pressure [Left Arm] 133/64 02 Sat by Pulse Oximetry 95 Oxygen Delivery Method Mechanical Ventilation Fraction of Inspired Oxygen 40 08/08/23 00:00 08/08/23 00:00 08/08/23 01:00 Temperature 98.3 F Pulse Rate Pulse Rate [Monitor] 66 Respiratory Rate 19 Blood Pressure Blood Pressure [Left Arm] 134/67 02 Sat by Pulse Oximetry 95 Oxygen Delivery Method Mechanical Ventilation Fraction of Inspired Oxygen 40 40 40 08/08/23 01:00 08/08/23 01:16 08/08/23 02:00 Temperature Pulse Rate 66 Pulse Rate [Monitor] 66 62 Respiratory Rate 18 18 19 Blood Pressure Blood Pressure [Left Arm] 135/67 129/66 02 Sat by Pulse Oximetry 96 95 Oxygen Delivery Method Mechanical Ventilation Mechanical Ventilation Fraction of Inspired Oxygen 40 40 40 08/08/23 02:00 08/08/23 03:00 08/08/23 03:00 Temperature Pulse Rate Pulse Rate [Monitor] 60 Respiratory Rate 19 Blood Pressure Blood Pressure [Left Arm] 131/67 02 Sat by Pulse Oximetry 95 Oxygen Delivery Method Mechanical Ventilation Fraction of Inspired Oxygen 40 40 40 08/08/23 04:00 08/08/23 04:00 08/08/23 04:00 Temperature 97.9 F Pulse Rate Pulse Rate [Monitor] 60 Respiratory Rate 19 Blood Pressure Blood Pressure [Left Arm] 125/69 02 Sat by Pulse Oximetry 97 Oxygen Delivery Method Mechanical Ventilation Mechanical Ventilation Fraction of Inspired Oxygen 40 40 40 08/08/23 04:34 08/08/23 04:35 08/08/23 05:00 Temperature Pulse Rate 60 60 Pulse Rate [Monitor] Respiratory Rate Blood Pressure 125/69 125/69 Blood Pressure [Left Arm] 02 Sat by Pulse Oximetry Oxygen Delivery Method Fraction of Inspired Oxygen 40 08/08/23 05:00 08/08/23 05:07 08/08/23 05:08 Temperature Pulse Rate 59 L 59 L Pulse Rate [Monitor] 59 L Respiratory Rate 21 Blood Pressure 127/65 127/65 Blood Pressure [Left Arm] 127/65 02 Sat by Pulse Oximetry 97 Oxygen Delivery Method Mechanical Ventilation Fraction of Inspired Oxygen 40 08/08/23 05:09 08/08/23 05:09 08/08/23 05:58 Temperature Pulse Rate 59 L 59 L 59 L Pulse Rate [Monitor] Respiratory Rate Blood Pressure 127/65 127/65 127/65 Blood Pressure [Left Arm] 02 Sat by Pulse Oximetry Oxygen Delivery Method Fraction of Inspired Oxygen 08/08/23 06:00 08/08/23 06:00 08/08/23 06:34 Temperature Pulse Rate 59 L Pulse Rate [Monitor] 60 Respiratory Rate 18 22 Blood Pressure Blood Pressure [Left Arm] 132/66 02 Sat by Pulse Oximetry 99 Oxygen Delivery Method Mechanical Ventilation Fraction of Inspired Oxygen 40 40 40 08/08/23 07:00 08/08/23 07:00 08/08/23 07:43 Temperature Pulse Rate 64 Pulse Rate [Monitor] 66 Respiratory Rate 18 Blood Pressure 152/75 H Blood Pressure [Left Arm] 152/75 H 02 Sat by Pulse Oximetry 99 Oxygen Delivery Method Mechanical Ventilation Fraction of Inspired Oxygen 40 40 08/08/23 08:00 08/08/23 08:00 08/08/23 08:35 Temperature 98.6 F Pulse Rate 72 Pulse Rate [Monitor] 66 Respiratory Rate 29 H 27 H Blood Pressure Blood Pressure [Left Arm] 177/86 H 02 Sat by Pulse Oximetry 95 Oxygen Delivery Method Mechanical Ventilation Fraction of Inspired Oxygen 40 40 40 08/08/23 09:00 08/08/23 09:00 08/08/23 10:00 Temperature Pulse Rate Pulse Rate [Monitor] 72 Respiratory Rate 29 H Blood Pressure Blood Pressure [Left Arm] 171/78 H 02 Sat by Pulse Oximetry 92 L Oxygen Delivery Method Mechanical Ventilation Fraction of Inspired Oxygen 40 40 40 08/08/23 10:00 08/08/23 11:00 08/08/23 11:00 Temperature Pulse Rate Pulse Rate [Monitor] 78 72 Respiratory Rate 28 H 20 Blood Pressure Blood Pressure [Left Arm] 197/86 H 173/78 H 02 Sat by Pulse Oximetry 92 L 94 L Oxygen Delivery Method Mechanical Ventilation Mechanical Ventilation Fraction of Inspired Oxygen 40 40 40 08/08/23 12:00 08/08/23 13:00 Temperature Pulse Rate Pulse Rate [Monitor] Respiratory Rate Blood Pressure Blood Pressure [Left Arm] 02 Sat by Pulse Oximetry Oxygen Delivery Method Fraction of Inspired Oxygen 40 50 Labs 08/08/23 04:32 08/08/23 04:32 Assessment/Plan (1) Encephalopathy: Assessment/Problem Details: CONSULT REASON: Encephalopathy SUBJECTIVE: Remains intubated. But obviously cannot obtain history or review of systems. No significant overnight events. At the time of my encounter he was just getting back from MRI. He was sedated and paralyzed to obtain the pictures. EXAMINATION: Still at least partially paralyzed. Cannot getting any meaningful examination from him at this time. DATA REVIEW: -Head CT August 06, 2023 is without acute findings. -MRI brain personally reviewed, radiology report pending. I see a 1 cm right parafalcine lesion that has diffusion restriction but no ADC correlate and has faint FLAIR hyperintensity, I cannot tell if it is intra-axial or extra-axial. ASSESSMENT: 72 year old man with respiratory failure and influenza. Persistent encephalopathy. There is a hesitancy to wean from the ventilator because of his mental status changes. Could be metabolic or related to infection. Head CT was without any evidence of acute or concerning findings. Routine EEG looked normal. MRI looks to show a right frontal parafalcine 1 cm lesion; radiology report is pending. I would not expect a lesion of that size in that location to have any significant contribution to his overall mental status. PLAN: 1. Await MRI brain report Plan: Plan Documented By: Pravin Rivers DO 08/08/23 1407 Signed By: <Electronically signed by Pravin Rivers DO> 08/08/23 1410 [facility] Work Phone: [phone]) [phone] Progress note Author Sanket Hammer [facility] August 08, 2023 12:08pm Note Date/Time August 08, 2023 12: 08pm [facility] [address] [place] [address] Nephrology Progress Note Signed Patient: Sudeep Diego JR MR#: [id number] : 1950 Acct:[id number] Age/Sex: 72 / M Adm Date: 4 Loc: Room: [address] [place] [address] Type: ADM IN Attending Dr: Vania Chacon MD Copies to: ~ Date of Service: 08/08/2023 Subjective Subjective Narrative: Mr. Diego is a 72-year-old male with history of DM2, HTN, PAD and prostate cancer. Patient was recently started on hemodialysis during his admission in June 2023 for SONYA possibly related to ATN versus Staph aureus glomerulonephritis. 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 Creatinine has increased up to 5 mg/dL with no evidence of recovery. [facility]. Patient presented to [facility] from his nursing facility with severe shortness of breath requiring intubation. Chest x-ray showed bilateral pulmonary infiltrate with possible pulmonary edema. Subsequently the patient was transferred to [facility] and he continues to be on vent. Respiratory swab showed evidence of influenza A. Patient is currently being treated for healthcare associated pneumonia with vancomycin and meropenem. Troponin was found to be elevated up to 1700. Hemoglobin was only 6.5 g/dL in setting of infection. Cardiology evaluated the patient and no intervention is planned at this point at the patient most likely has type II demand decreased cardiac perfusion. Nephrology was consulted for ESRD and dialysis. Interval history: Patient is being seen and examined in the ICU . Slightly agitated today. He issedated with midazolam and Precedex Patient remains ventilated. FiO2 40%. Chest x-ray from continues to show bilateral airspace disease continues to be on NG tube feeding There has been no recovery of kidney function. Continues to be oliguric Blood pressure is well-controlled. Cannot do review of system Exam Physical Exam Vital Signs: Temp Pulse Resp BP Pulse Ox O2 Del Method FiO2 98.6 F 78 28 H 197/86 H 92 L Mechanical Ventilation 40 08/08/23 08:00 08/08/23 10:08/08/23 10:00 08/08/23 10:00 08/08/23 10:00 08/08/23 10:08/08/23 10:00 Narrative: General: Patient is calm. No acute distress Head :atraumatic normocephalic Eyes: PERRLA. Neck: no JVD no bruit. Heart: S1-S2. RRR Respiratory: Equal air entry. No wheezing no crackles Abdomen: Soft, no distention Neurology: Sedated. Extremity. No cyanosis. No edema Skin: No skin rash Objective Intake and Output I&O: Intake & Output 08/05/23 08/06/23 08/07/23 08/08/23 23:59 23:59 23:59 23:59 Intake Total 1700 / 1700 1979 / 1979 1073 / 1073 149 / 149 Output Total 157 / 157 4643 / 4643 65 / 65 10 Balance 1543 / 1543 -2663 / -2663 1008 / 1008 139 / 139 Weight 213 lb 6.519 oz 213 lb 6.519 oz 207 lb 14.334 oz 209 lb 3.499 oz Meds and Allergies Meds: Active Medications Acetaminophen (Acetaminophen 325 Mg Tablet) 650 mg PO Q6H PRN PRN Reason: Pain Stop: 07/31/24 14:12 Last Admin: 08/07/23 16:44 Dose: 650 mg Albuterol (Albuterol Hfa 200 Puff/18 Gm Inhaler) 6 puff VENT Q6HR KACI Stop: 07/31/24 11:59 Last Admin: 08/08/23 06:34 Dose: 6 puff Chlorhexidine Gluconate (Chlorhexidine Gluconate 0.12% 15 Ml Udc) 15 ml MUCOUS MEM BID KACI Stop: 07/31/24 08:59 Last Admin: 08/08/23 09:41 Dose: 15 ml Cisatracurium Besylate (Cisatracurium Besylate 20 Mg/10 Ml Vial) 10 mg IV-PUSH ONCE ONE Stop: 08/08/23 12:31 Dextrose (Dextrose 50% In Water 25 Gm/50 Ml Syringe) 0 gm IV-PUSH PRN PRN PRN Reason: Hypoglycemia Stop: 07/31/24 08:04 Docusate Sodium (Docusate Liquid 100 Mg/10 Ml Udc) 100 mg PO BID KACI Stop: 08/03/24 08:59 Last Admin: 08/08/23 09:41 Dose: 100 mg Fentanyl Citrate (Fentanyl/Pf 100 Mcg/2 Ml Vial) 50 mcg IV-PUSH Q2H PRN PRN Reason: Pain Scale 4 - 7 Last Admin: 08/03/23 21:01 Dose: 50 mcg Glucose (Dextrose 40% Gel 15 Gm Tube) 0 gm PO PRN PRN PRN Reason: Hypoglycemia Stop: 07/31/24 08:04 Heparin Sodium (Porcine) (Heparin 10,000 Unit/10 Ml Vial) 2,000 unit IV PRN PRN PRN Reason: Dialysis Stop: 08/01/24 09:40 Last Admin: 08/06/23 14:19 Dose: 2,000 unit Heparin Sodium (Porcine) (Heparin 5,000 Unit/Ml Vial) 5,000 unit SUBCUT Q8HR KACI Stop: 08/01/24 13:59 Last Admin: 08/08/23 05:56 Dose: 5,000 unit Heparin Sodium (Porcine) (Heparin 10,000 Unit/10 Ml Vial) 1,000 unit IV PRN PRN PRN Reason: Dialysis Stop: 08/05/24 10:45 Last Admin: 08/06/23 14:19 Dose: 1,000 unit Sodium Chloride (0.9% Sodium Chloride 1,000 Ml) 1,000 mls @ 0 mls/hr MISCELLANE.Q0M PRN PRN Reason: Dialysis Stop: 07/31/24 10:31 Last Infusion: 08/06/23 14:21 Dose: Infused Sodium Chloride (0.9% Sodium Chloride 1,000 Ml) 1,000 mls @ 0 mls/hr MISCELLANE.Q0M PRN PRN Reason: Dialysis Stop: 08/01/24 09:40 Last Infusion: 08/02/23 23:01 Dose: Infused Dexmedetomidine HCl 400 mcg/ (Dextrose) 100 mls @ 4.84 mls/hr IV .[id number] KACI; Protocol Stop: 08/04/24 10:14 Last Titration: 08/08/23 07:43 Dose: 0.7 mcg/kg/hr, 16.94 mls/hr Midazolam HCl (Versed) 100 mg in 100 mls @ 1 mls/hr IV .Q24H KACI; Protocol Stop: 02/01/24 22:59 Last Titration: 08/08/23 05:58 Dose: 2 mg/hr, 2 mls/hr Insulin Aspart (Insulin Aspart 300 Units/3 Ml Insuln.Pen) 0 units SUBCUT Q6HR KACI; Protocol Stop: 07/31/24 11:59 Last Admin: 08/08/23 06:00 Dose: 2 units Magnesium Hydroxide (Magnesium Hydroxide Susp 30 Ml Udc) 30 ml PO DAILY PRN PRN Reason: Constipation Stop: 08/02/24 22:13 Midazolam HCl (Midazolam/Pf 2 Mg/2 Ml Vial) 4 mg IV-PUSH Q3H PRN PRN Reason: Agitation Stop: 02/01/24 11:11 Last Admin: 08/05/23 22:41 Dose: 4 mg Midazolam HCl (Midazolam/Pf 2 Mg/2 Ml Vial) 4 mg IV-PUSH ONCE PRN PRN Reason: sedation Pantoprazole Sodium (Pantoprazole 40 Mg Vial) 40 mg IV-PUSH DAILY [facility] Stop: 07/31/24 08:59 Last Admin: 08/08/23 09:41 Dose: 40 mg Sennosides (Sennosides Syrup 8.8 Mg/5 Ml Udc) 8.8 mg PO BID KACI Stop: 08/03/24 08:59 Last Admin: 08/08/23 09:41 Dose: 8.8 mg Sodium Chloride (Sodium Chloride 0.9 % 10 Ml Vial.Pf) 10 ml INJECTION PRN PRN PRN Reason: Dilution Stop: 07/31/24 08:06 Last Admin: 08/08/23 09:41 Dose: 10 ml Sodium Chloride (Sodium Chloride 0.9 % 10 Ml Syringe) 10 ml IV-PUSH PRN PRN PRN Reason: Flush Stop: 07/31/24 08:06 Last Admin: 08/01/23 08:49 Dose: 10 ml Sodium Chloride (Sodium Chloride 0.9 % 10 Ml Syringe) 0 ml IV-PUSH PRN PRN PRN Reason: Flush Stop: 07/31/24 10:31 Last Admin: 08/06/23 14:19 Dose: 40 ml Sodium Chloride (Sodium Chloride 0.9 % 10 Ml Syringe) 0 ml IV-PUSH PRN PRN PRN Reason: Flush Stop: 08/01/24 09:40 Last Admin: 08/04/23 16:49 Dose: 40 ml Allergies cefepime Allergy (Unknown, Verified 07/10/23 18:46) Hives lisinopril Allergy (Unknown, Verified 07/10/23 18:46) Swelling of Lip/Tongue/Throat, SWELLING metformin Allergy (Unknown, Verified 07/10/23 18:46) Back Pain, KIDNEY PAIN Results - Nephrology Labs 08/08/23 04:32 08/08/23 04:32 Labs: 08/08/23 04:32 BUN 45 H Creatinine 3.67 H D Radiology Impressions Impressions - last 24 hours: Impressions Chest X-Ray 08/08/23 05:00 IMPRESSION: NO SIGNIFICANT CHANGE IN CHEST FINDINGS. Impression dictated by: Georgi Simmons Jr., D.OTracy08/08/2023 8:26 AM Dictation Location: [place] [address] Any impression(s) listed above is documentation that was entered by the reading physician into a diagnostic report(s) for Sudeep Diego JR. I have reviewed the report(s) and am incorporating any findings in the treatment plan of this patient where applicable. A&P - Nephrology Assessment/Plan (1) SONYA (acute kidney injury): Assessment/Problem Details: Patient developed SONYA during his previous admission on June 2023 with left foot infection and staph bacteremia with no evidence of recovery currently on dialysis. Baseline creatinine was 1.1 mg/dL. Patient gets dialysis on MWF schedule (2) Acute pulmonary edema: Assessment/Problem Details: Patient presents with shortness of breath and respiratory failure. Chest x-ray showed pulmonary congestion with evidence of bilateral infiltrate. 2D echo showed dilated IVC with abnormal collapsibility suggestive of volume overload (3) Acute hypoxic respiratory failure: Assessment/Problem Details: Patient has bilateral infiltrate on chest x-ray, respiratory swab was positive for influenza A. Patient is currently getting treatment for healthcare associated pneumonia as well since he has recent hospitalization (4) T2DM (type 2 diabetes mellitus): (5) Elevated troponin level not due to acute coronary syndrome: (6) Anemia of renal disease: Assessment/Problem Details: He has anemia in the setting of SONYA with superimposed infection. Patient has elevated ferritin and low iron saturation in setting of infection. Plan * Hemodialysis will be done later today with ultrafiltration goal is 4 L * ANCA, and anti-GBM antibodies are negative. SUSANA positive for SLATE SPLITTER antibodies. Not sure about the clinical significant of these. Might have to do kidney biopsy statics the patient * Serum sodium level is down to 126 mmol. This should improve with hemodialysis and ultrafiltration .please keep output more than input * Noted high blood pressure. Will add as needed hydralazine * Patient had 2 units of packed RBCs earlier this admission. Hemoglobin level has been stable around 9 g deciliter. Will continue to monitor H&H and transfuse as needed * Meropenem stopped today. Blood culture showed no growth Sputum endotracheal culture showed Rajiv * Vent management as directed by pulmonary service * Will monitor daily intake, output and renal panel to adjust medications and dialysis prescription as indicated. Documented By: Sanket Hammer MD 08/08/231203 Signed By: <Electronically signed by Sanket Hammer MD> 08/08/236 [facility] Work Phone: [phone]) [phone] Progress note Author Mehul Garrett [facility] August 08, 2023 11:54am Note Date/Time August 08, 2023 8:3 2am [facility] [address] [place] [address] Pulmonology Progress Note Signed Patient: Sudeep Diego JR MR#: [id number] : 1950 Acct:[id number] Age/Sex: 72 / M Adm Date: 4 Loc: Room: [address] [place] [address] Type: ADM IN Attending Dr: Vania Chacon MD Copies to: ~ Date of Service: 08/08/2023 Subjective Subjective Narrative: Patient remains sedated on Versed drip and Precedex drip with some ventilator dyssynchrony and tachypnea noted. MRI was not performed yesterday and we are awaiting MRI today with sedation. Exam Physical Exam Vital Signs: Temp Pulse Resp BP Pulse Ox O2 Del Method FiO2 97.9 F 64 18 152/75 H 99 Mechanical Ventilation 40 08/08/23 04:00 08/08/23 07:43 08/08/23 07:00 08/08/23 07:43 08/08/23 07:00 08/08/23 07:00 08/08/23 08:00 Const Nutritional Appearance: overweight Orientation: not alert and not awake HEENT Head: normal to inspection, normocephalic and atraumatic Ears: external ears normal Nose: external nose normal Face and sinus: normal facial exam Mouth: other (8.0 mm ID ET tube) Eyes Eyelids: eyelids normal Neck Neck: normal visual inspection and no lymphadenopathy Chest Chest palpation & inspection: normal inspection of the chest Resp Auscultation: clear to auscultation bilaterally, no rales, no rhonchi and no wheezes Cardio Rate: regular rate Rhythm: regular rhythm Heart Sounds: S1 normal, S2 normal, no gallops, no murmurs and no rubs GI Inspection: normal to inspection Palpation: soft and nontender Auscultation: hypoactive bowel sounds Rectal Exam: deferred General: deferred Skin General: no rashes or lesions noted (warm and dry) Extrem General: no pedal edema and amputation noted Transmetatarsal: left Objective Intake and Output I&O - Last 24 Hours: Intake & Output 08/07/23 08/08/23 08/08/23 23:59 07:59 15:59 Intake Total 592 / 1073 149 / 149 Output Total 5 / 65 10 / 10 Balance 587 / 1008 139 / 139 Weight 209 lb 3.499 oz Labs 08/08/23 04:32 08/08/23 04:32 Imaging and Cardiology Chest x-ray: Status: image reviewed by me Additional comments: Date of Service: 08/08/23 XR/XR chest 1V portable: on vent SINGLE VIEW CHEST CLINICAL HISTORY: Ventilator care. COMPARISON: Chest 08/07/2023 FINDINGS: ET and enteric tubes are in satisfactory positions. Right-sided dialysis catheter is identified and appears unchanged in position. Heart and mediastinalsoft tissues appear unchanged. Diffuse interstitial changes/airspace disease issimilar to the prior study. No pneumothorax, pleural effusion or free air. XR/XR chest 1V portable IMPRESSION: NO SIGNIFICANT CHANGE IN CHEST FINDINGS. Additional Results Results Comments: 08/08/23 05:21 ABG pH 7.44 ABG pCO2 41.1 ABG pO2 61.0 L ABG HCO3 27.2 ABG Total CO2 28.4 H ABG O2 Saturation 90.9 L ABG O2 Content 5.7 L ABG Base Excess 2.8 /40/5 Assessment/Plan Assessment/Plan (1) Acute hypoxic respiratory failure: (2) Acute pulmonary edema: (3) ESRD (end stage renal disease): (4) T2DM (type 2 diabetes mellitus): (5) PAD (peripheral artery disease): Plan Hospital day #7, ventilator day #7 for patient with respiratory failure, influenza A, diabetes mellitus, end-stage renal disease, and peripheral vasculardisease. We will proceed with MRI and pending further neurologic evaluation we will try patient on antipsychotics with close observation of QT interval. Patient is to get dialysis today. Once mental status is improved with weaning of sedation we can work toward extubation. Continue supportive care. Documented By: Mehul Garrett MD 4 1415 Signed By: <Electronically signed by MD Mehul Garrett> 08/08/23 1157 [facility] Work Phone: 1(232) [phone] Progress note Author Vania Chacon [facility] August 08, 2023 10:42am Note Date/Time August 08, 2023 10: 42[facility] [address] [place] [address] Hospitalist Progress Note Signed Patient: Sudeep Diego JR MR#: [id number] : 1950 Acct:[id number] Age/Sex: 72 / M Adm Date: 4 Loc: Room: [address] [place] [address] Type: ADM IN Attending Dr: Vania Chacon MD Copies to: ~ Date of Service: 08/08/2023 Subjective Subjective Narrative: Seen and examined On mechanical ventilation with FIO2 40% Sedated by Versed. On Precedex infusion NO fever Exam Physical Exam Vital Signs: Temp Pulse Resp BP Pulse Ox O2 Del Method FiO2 97.9 F 72 27 H 152/75 H 99 Mechanical Ventilation 40 08/08/23 04:00 08/08/23 08:35 08/08/23 08:35 08/08/23 07:43 08/08/23 07:00 08/08/23 07:00 08/08/23 09:00 Narrative: General sedated and intubated HEENT PERRLA Neck supple no JVD no carotid bruit CVS S1-S2 regular rate and rhythm no murmur no gallop Chest bilateral wheezing Abdomen soft bowel sounds normoactive no rebound no guarding Extremities no stenosis no clubbing no edema Musculoskeletal exam normal no joint effusion Neurologic sedated and intubated Objective Lab Results 08/08/23 04:32 08/08/23 04:32 ABG Interpretation ABG results: 08/08/23 05:21 ABG pH 7.44 ABG pCO2 41.1 ABG pO2 61.0 L ABG HCO3 27.2 ABG Total CO2 28.4 H ABG O2 Saturation 90.9 L ABG O2 Content 5.7 L ABG Base Excess 2.8 Meds Allergies and Active Meds Allergies cefepime Allergy (Unknown, Verified 07/10/23 18:46) Hives lisinopril Allergy (Unknown, Verified 07/10/23 18:46) Swelling of Lip/Tongue/Throat, SWELLING metformin Allergy (Unknown, Verified 07/10/23 18:46) Back Pain, KIDNEY PAIN Active Meds: Active Medications Generic Name Dose Route Start Last Admin Trade Name Freq PRN Reason Stop Dose Admin Acetaminophen 650 mg 08/01/23 14:13 08/07/23 16:44 Acetaminophen 325 Mg Tablet PO 07/31/24 14:12 650 mg Q6H PRN Administration Pain Albuterol 6 puff 08/01/23 12:00 08/08/23 06:34 Albuterol Hfa 200 Puff/18 Gm Inhaler VENT 07/31/24 11:59 6 puff Q6HR KACI Administration Chlorhexidine Gluconate 15 ml 08/01/23 09:00 08/08/23 09:41 Chlorhexidine Gluconate 0.12% 15 Ml Udc MUCOUS MEM 07/31/24 08:59 15 ml BID KACI Administration Dextrose 0 gm 08/01/23 08:05 Dextrose 50% In Water 25 Gm/50 Ml Syringe IV-PUSH 07/31/24 08:04 PRN PRN Hypoglycemia Docusate Sodium 100 mg 08/04/23 09:00 08/08/23 09:41 Docusate Liquid 100 Mg/10 Ml Udc PO 08/03/24 08:59 100 mg BID KACI Administration Fentanyl Citrate 50 mcg 08/02/23 09:44 08/03/23 21:01 Fentanyl/Pf 100 Mcg/2 Ml Vial IV-PUSH 50 mcg Q2H PRN Administration Pain Scale 4 - 7 Glucose 0 gm 08/01/23 08:05 Dextrose 40% Gel 15 Gm Tube PO 07/31/24 08:04 PRN PRN Hypoglycemia Heparin Sodium (Porcine) 2,000 unit 08/02/23 09:41 08/06/23 14:19 Heparin 10,000 Unit/10 Ml Vial IV 08/01/24 09:40 2,000 unit PRN PRN Administration Dialysis Heparin Sodium (Porcine) 5,000 unit 08/02/23 14:00 08/08/23 05:56 Heparin 5,000 Unit/Ml Vial SUBCUT 08/01/24 13:59 5,000 unit Q8HR KACI Administration Heparin Sodium (Porcine) 1,000 unit 08/06/23 10:46 08/06/23 14:19 Heparin 10,000 Unit/10 Ml Vial IV 08/05/24 10:45 1,000 unit PRN PRN Administration Dialysis Sodium Chloride 1,000 mls @ 0 mls/hr 08/01/23 10:32 08/06/23 14:21 0.9% Sodium Chloride 1,000 Ml MISCELLANE 07/31/24 10:31 Infused .Q0M PRN Infusion Dialysis As Directed Sodium Chloride 1,000 mls @ 0 mls/hr 08/02/23 09:41 08/02/23 23:01 0.9% Sodium Chloride 1,000 Ml MISCELLANE 08/01/24 09:40 Infused .Q0M PRN Infusion Dialysis As Directed Dexmedetomidine HCl 400 mcg/ 100 mls @ 4.84 mls/hr 08/05/23 10:15 08/08/23 07:43 Dextrose IV 08/04/24 10:14 0.7 mcg/kg/hr .[id number] KACI 16.94 mls/hr Titration Protocol 0.2 MCG/KG/HR Midazolam HCl 100 mg in 100 mls @ 1 mls/hr 08/05/23 23:00 08/08/23 05:58 Versed IV 02/01/24 22:59 2 mg/hr .Q24H KACI 2 mls/hr Titration Protocol 1 MG/HR Insulin Aspart 0 units 08/01/23 12:00 08/08/23 06:00 Insulin Aspart 300 Units/3 Ml Insuln.Pen SUBCUT 07/31/24 11:59 2 units Q6HR KACI Administration Protocol Magnesium Hydroxide 30 ml 08/03/23 22:14 Magnesium Hydroxide Susp 30 Ml Udc PO 08/02/24 22:13 DAILY PRN Constipation Midazolam HCl 4 mg 08/05/23 11:12 08/05/23 22:41 Midazolam/Pf 2 Mg/2 Ml Vial IV-PUSH 02/01/24 11:11 4 mg Q3H PRN Administration Agitation Midazolam HCl 4 mg 08/07/23 12:34 Midazolam/Pf 2 Mg/2 Ml Vial IV-PUSH ONCE PRN sedation Pantoprazole Sodium 40 mg 08/01/23 09:00 08/08/23 09:41 Pantoprazole 40 Mg Vial IV-PUSH 07/31/24 08:59 40 mg DAILY KACI Administration Sennosides 8.8 mg 08/04/23 09:00 08/08/23 09:41 Sennosides Syrup 8.8 Mg/5 Ml Udc PO 08/03/24 08:59 8.8 mg BID KACI Administration Sodium Chloride 10 ml 08/01/23 08:07 08/08/23 09:41 Sodium Chloride 0.9 % 10 Ml Vial.Pf INJECTION 07/31/24 08:06 10 ml PRN PRN Administration Dilution Sodium Chloride 10 ml 08/01/23 08:07 08/01/23 08:49 Sodium Chloride 0.9 % 10 Ml Syringe IV-PUSH 07/31/24 08:06 10 ml PRN PRN Administration Flush Sodium Chloride 0 ml 08/01/23 10:32 08/06/23 14:19 Sodium Chloride 0.9 % 10 Ml Syringe IV-PUSH 07/31/24 10:31 40 ml PRN PRN Administration Flush Sodium Chloride 0 ml 08/02/23 09:41 08/04/23 16:49 Sodium Chloride 0.9 % 10 Ml Syringe IV-PUSH 08/01/24 09:40 40 ml PRN PRN Administration Flush A&P - Hospitalist Assessment/Plan (1) Acute hypoxic respiratory failure: (2) Acute pulmonary edema: (3) ESRD (end stage renal disease): (4) Leukocytosis: (5) T2DM (type 2 diabetes mellitus): (6) Hyperlipemia: (7) HTN (hypertension): (8) PAD (peripheral artery disease): (9) SONYA (acute kidney injury): Plan ASSESSMENT AND PLAN: Acute hypoxic respiratory failure Acute influenza A Seen and examined Still still on mechanical vent Sedated by Versed and Precedex Saturation is 99% NO fever EEG:Normal-appearing routine EEG. Normal electrical background. No epileptiform discharges. No seizures. MRI brain Neurology is following ICU team is following Severe progressive anemia, most likely related to chronic kidney disease and chronic disease with his recent diabetic foot. Hemoglobin and hematocrit are stable 9.3/27.5 Recent severe issues with diabetic foot with kim osteomyelitis, visible bone, requiring a transmetatarsal amputation the previous hospital stay on 07/18/2023. Recent MSSA osteomyelitis of the left forefoot, appears to be treated successfully with a trans metatarsal amputation. No fever No leukocytosis Continue meropenem Diabetes mellitus type 2, described as brittle, with recent hemoglobin A1c uncontrolled at 8.1. Accu-Check every 6 hours Insulin sliding scale History of peripheral arterial disease with angioplasty to the left lower extremity in the past. History of hypertension: Controlled History of dyslipidemia. n.p.o. 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 Hyponatremia: trending down . Nephrology is following DVT prophylaxis heparin Documented By: Vania Chacon MD 08/08/23 1039 Signed By: <Electronically signed by Vania Chacon MD> 08/08/23 1042 [facility] Work Phone: 1([phone]) 327-777403-14-2024 Progress note Author Mehul Garrett [facility] August 07, 2023 4:29pm Note Date/Time August 07, 2023 7:5 9am [facility] [address] [place] [address] Pulmonology Progress Note Signed Patient: Sudeep Diego JR MR#: [id number] : 1950 Acct:[id number] Age/Sex: 72 / M Adm Date: 4 Loc: Room: [address] [place] [address] Type: ADM IN Attending Dr: Vania Chacon MD Copies to: ~ Date of Service: 08/07/2023 Subjective Subjective Narrative: Patient remains intubated and sedated on dexmedetomidine drip and Versed drip. Attempt at MRI today was unsuccessful but after discussion with radiology MRI was refused for erroneous reason as patient is intubated. Exam Physical Exam Vital Signs: Temp Pulse Resp BP Pulse Ox O2 Del Method FiO2 99.2 F H 82 35 H 132/65 98 Mechanical Ventilation 40 08/07/23 04:00 08/07/23 07:00 08/07/23 07:00 08/07/23 07:00 08/07/23 07:00 08/07/23 07:00 08/07/23 07:00 Const Nutritional Appearance: overweight Orientation: not alert and not awake HEENT Head: normal to inspection, normocephalic and atraumatic Ears: external ears normal Nose: external nose normal Face and sinus: normal facial exam Mouth: other (8.0 mm ID ET tube) Eyes Eyelids: eyelids normal Neck Neck: normal visual inspection and no lymphadenopathy Chest Chest palpation & inspection: normal inspection of the chest Resp Auscultation: clear to auscultation bilaterally, no rales, no rhonchi and no wheezes Cardio Rate: regular rate Rhythm: regular rhythm Heart Sounds: S1 normal, S2 normal, no gallops, no murmurs and no rubs GI Inspection: normal to inspection Palpation: soft and nontender Auscultation: hypoactive bowel sounds Rectal Exam: deferred General: deferred Skin General: no rashes or lesions noted (warm and dry) Extrem General: no pedal edema and amputation noted Transmetatarsal: left Objective Intake and Output I&O - Last 24 Hours: Intake & Output 08/06/23 08/06/23 08/07/23 15:59 23:59 07:59 Intake Total 600 / 1880 720 / 1880 100 / 100 Output Total 75 / 4643 4553 / 4643 Balance 525 / -2763 -3833 / -2763 100 / 100 Weight 207 lb 14.334 oz Labs 08/07/23 04:14 08/07/23 04:14 Microbiology Micro: Microbiology 3 08/01/23 07:33 Blood Culture - Final Blood - Right Antecubital NO GROWTH 5 DAYS 08/01/23 07:40 Blood Culture - Final Blood - Left Hand NO GROWTH 5 DAYS Imaging and Cardiology Chest x-ray: Status: image reviewed by me Additional comments: Date of Service: 08/07/23 XR/XR chest 1V portable: on vent PORTABLE AP SEMIERECT CHEST 0501 hours CLINICAL HISTORY: Respiratory distress on ventilator COMPARISON: 08/06/2023 Tubes and lines are unchanged in position. There are continued bilateral parenchymal changes, greater on the right where there are might be minimal interval improvement. There is no sizable effusion or pneumothorax. The cardiac and basilar contours are similar when allowing for slight patient rotation. There is endplate spurring at the spine. XR/XR chest 1V portable IMPRESSION: CONTINUED PARENCHYMAL CHANGES, POSSIBLY MINIMALLY IMPROVED ON THE RIGHT. Additional Results Results Comments: 08/07/23 04:28 ABG pH 7.50 H ABG pCO2 32.1 L ABG pO2 56.6 L ABG HCO3 24.7 ABG Total CO2 25.7 ABG O2 Saturation 90.3 L ABG O2 Content 5.8 L ABG Base Excess 1.9 5 Assessment/Plan Assessment/Plan (1) Acute hypoxic respiratory failure: (2) Acute pulmonary edema: (3) ESRD (end stage renal disease): (4) T2DM (type 2 diabetes mellitus): (5) PAD (peripheral artery disease): Plan Hospital day #6, ventilator day #6 for patient with respiratory failure, influenza A, diabetes mellitus, end-stage renal disease, and peripheral vasculardisease. Patient's primary issue is mental status. We will await completion ofneurologic workup and then would consider trial of antipsychotics including Geodon during the day as well as consideration of Haldol during the evening as QT interval permits. We will hold Reglan for now with concerns for prolonged QTinterval. Otherwise, continue supportive care. Documented By: Mehul Garrett MD 4 [id number] Signed By: <Electronically signed by MD Mehul Garrett> 08/07/23 1629 [facility] Work Phone: [phone]) 250-366003-14-2024 Progress note Author Pravin Rivers [facility] August 07, 2023 1:55pm Note Date/Time August 07, 2023 1:5 5pm [facility] [address] [place] [address] Neurology Progress Note Signed Patient: Sudeep Diego JR MR#: [id number] : 1950 Acct:[id number] Age/Sex: 72 / M Adm Date: 4 Loc: Room: [address] [place] [address] Type: ADM IN Attending Dr: Vania Chacon MD Copies to: ~ Date of Service: 08/07/2023 Exam Physical Exam Vital Signs: Temp Pulse Resp BP Pulse Ox O2 Del Method FiO2 98.7 F 81 2 L 164/76 H 93 L Mechanical Ventilation 40 08/07/23 12:00 08/07/23 13:46 08/07/23 13:00 08/07/23 13:46 08/07/23 13:00 08/07/23 13:00 08/07/23 13:00 Objective Vital Signs Vital Signs: Vital Signs - 24 hr 08/06/23 14:00 08/06/23 14:00 08/06/23 14:05 Temperature 97.7 F Pulse Rate Pulse Rate [Monitor] 60 62 Respiratory Rate 24 20 Blood Pressure Blood Pressure [Left Arm] 100/54 L 131/62 02 Sat by Pulse Oximetry 94 L 100 Oxygen Delivery Method Mechanical Ventilation Mechanical Ventilation Fraction of Inspired Oxygen 40 40 40 08/06/23 14:14 08/06/23 14:30 08/06/23 15:00 Temperature Pulse Rate Pulse Rate [Monitor] 62 79 80 Respiratory Rate Blood Pressure Blood Pressure [Left Arm] 100/54 L 144/67 H 153/70 H 02 Sat by Pulse Oximetry Oxygen Delivery Method Fraction of Inspired Oxygen 08/06/23 15:00 08/06/23 15:00 08/06/23 15:30 Temperature Pulse Rate Pulse Rate [Monitor] 82 77 Respiratory Rate 22 Blood Pressure Blood Pressure [Left Arm] 153/70 H 131/66 02 Sat by Pulse Oximetry 95 Oxygen Delivery Method Mechanical Ventilation Fraction of Inspired Oxygen 40 40 08/06/23 16:00 08/06/23 16:00 08/06/23 16:00 Temperature Pulse Rate Pulse Rate [Monitor] 76 Respiratory Rate Blood Pressure Blood Pressure [Left Arm] 124/60 02 Sat by Pulse Oximetry Oxygen Delivery Method Mechanical Ventilation Fraction of Inspired Oxygen 40 40 08/06/23 16:00 08/06/23 16:31 08/06/23 16:35 Temperature 97.8 F Pulse Rate 62 Pulse Rate [Monitor] 68 71 Respiratory Rate 28 H 20 Blood Pressure Blood Pressure [Left Arm] 123/64 118/64 02 Sat by Pulse Oximetry 94 L Oxygen Delivery Method Mechanical Ventilation Fraction of Inspired Oxygen 40 40 08/06/23 16:56 08/06/23 16:56 08/06/23 17:00 Temperature Pulse Rate 75 75 Pulse Rate [Monitor] 76 Respiratory Rate Blood Pressure 120/68 120/68 Blood Pressure [Left Arm] 131/71 02 Sat by Pulse Oximetry Oxygen Delivery Method Fraction of Inspired Oxygen 08/06/23 17:00 08/06/23 17:00 08/06/23 17:30 Temperature Pulse Rate Pulse Rate [Monitor] 72 85 Respiratory Rate 21 Blood Pressure Blood Pressure [Left Arm] 131/74 156/77 H 02 Sat by Pulse Oximetry 95 Oxygen Delivery Method Mechanical Ventilation Fraction of Inspired Oxygen 40 40 08/06/23 18:00 08/06/23 18:00 08/06/23 18:00 Temperature Pulse Rate Pulse Rate [Monitor] 80 85 Respiratory Rate 38 H Blood Pressure Blood Pressure [Left Arm] 155/64 H 153/77 H 02 Sat by Pulse Oximetry 94 L Oxygen Delivery Method Mechanical Ventilation Fraction of Inspired Oxygen 40 40 08/06/23 18:15 08/06/23 18:21 08/06/23 18:35 Temperature 97.3 F L Pulse Rate 79 Pulse Rate [Monitor] 87 86 Respiratory Rate 28 H Blood Pressure 132/59 L Blood Pressure [Left Arm] 148/70 H 132/59 L 02 Sat by Pulse Oximetry 93 L Oxygen Delivery Method Mechanical Ventilation Fraction of Inspired Oxygen 40 08/06/23 19:00 08/06/23 19:00 08/06/23 19:42 Temperature Pulse Rate 67 Pulse Rate [Monitor] 66 Respiratory Rate 19 Blood Pressure 100/53 L Blood Pressure [Left Arm] 100/53 L 02 Sat by Pulse Oximetry 95 Oxygen Delivery Method Mechanical Ventilation Fraction of Inspired Oxygen 40 40 08/06/23 19:55 08/06/23 20:00 08/06/23 20:00 Temperature 99.3 F H Pulse Rate 67 Pulse Rate [Monitor] 66 Respiratory Rate 20 Blood Pressure 100/53 L Blood Pressure [Left Arm] 118/58 L 02 Sat by Pulse Oximetry 95 Oxygen Delivery Method Mechanical Ventilation Fraction of Inspired Oxygen 40 40 08/06/23 20:00 08/06/23 20:36 08/06/23 21:00 Temperature Pulse Rate 67 Pulse Rate [Monitor] 66 Respiratory Rate 21 22 Blood Pressure Blood Pressure [Left Arm] 97/54 L 02 Sat by Pulse Oximetry 93 L Oxygen Delivery Method Mechanical Ventilation Mechanical Ventilation Fraction of Inspired Oxygen 40 40 40 08/06/23 21:00 08/06/23 21:53 08/06/23 21:53 Temperature Pulse Rate 64 64 Pulse Rate [Monitor] Respiratory Rate Blood Pressure 97/54 L 97/54 L Blood Pressure [Left Arm] 02 Sat by Pulse Oximetry Oxygen Delivery Method Fraction of Inspired Oxygen 40 08/06/23 22:00 08/06/23 22:00 08/06/23 22:41 Temperature Pulse Rate 63 Pulse Rate [Monitor] 70 Respiratory Rate 24 Blood Pressure 118/58 L Blood Pressure [Left Arm] 118/58 L 02 Sat by Pulse Oximetry 97 Oxygen Delivery Method Mechanical Ventilation Fraction of Inspired Oxygen 40 40 08/06/23 22:56 08/06/23 23:00 08/06/23 23:00 Temperature Pulse Rate 63 Pulse Rate [Monitor] 63 Respiratory Rate 18 Blood Pressure 118/58 L Blood Pressure [Left Arm] 95/54 L 02 Sat by Pulse Oximetry 92 L Oxygen Delivery Method Mechanical Ventilation Fraction of Inspired Oxygen 40 40 08/06/23 23:09 08/07/23 00:00 03/14/24 00:00 Temperature 99.0 F Pulse Rate 65 Pulse Rate [Monitor] 62 Respiratory Rate 21 Blood Pressure 95/54 L Blood Pressure [Left Arm] 99/54 L 02 Sat by Pulse Oximetry 92 L Oxygen Delivery Method Mechanical Ventilation Fraction of Inspired Oxygen 40 40 08/07/23 00:35 08/07/23 01:00 08/07/23 01:00 Temperature Pulse Rate 63 Pulse Rate [Monitor] 71 Respiratory Rate 20 21 Blood Pressure Blood Pressure [Left Arm] 116/62 02 Sat by Pulse Oximetry 92 L Oxygen Delivery Method Mechanical Ventilation Fraction of Inspired Oxygen 40 40 40 08/07/23 02:00 08/07/23 02:00 08/07/23 03:00 Temperature Pulse Rate Pulse Rate [Monitor] 72 72 Respiratory Rate 22 21 Blood Pressure Blood Pressure [Left Arm] 121/57 L 116/58 L 02 Sat by Pulse Oximetry 92 L 91 L Oxygen Delivery Method Mechanical Ventilation Mechanical Ventilation Fraction of Inspired Oxygen 40 40 40 08/07/23 03:00 08/07/23 04:00 08/07/23 04:00 Temperature 99.2 F H Pulse Rate Pulse Rate [Monitor] 70 Respiratory Rate 25 H Blood Pressure Blood Pressure [Left Arm] 102/57 L 02 Sat by Pulse Oximetry 97 Oxygen Delivery Method Mechanical Ventilation Fraction of Inspired Oxygen 40 40 40 08/07/23 04:00 08/07/23 04:18 08/07/23 04:55 Temperature Pulse Rate 77 66 Pulse Rate [Monitor] Respiratory Rate 26 H Blood Pressure 119/63 Blood Pressure [Left Arm] 02 Sat by Pulse Oximetry Oxygen Delivery Method Mechanical Ventilation Fraction of Inspired Oxygen 40 40 08/07/23 05:00 08/07/23 05:00 08/07/23 05:20 Temperature Pulse Rate 66 Pulse Rate [Monitor] 72 Respiratory Rate 26 H Blood Pressure 119/63 Blood Pressure [Left Arm] 119/63 02 Sat by Pulse Oximetry 98 Oxygen Delivery Method Mechanical Ventilation Fraction of Inspired Oxygen 40 40 08/07/23 06:00 08/07/23 06:00 08/07/23 07:00 Temperature Pulse Rate Pulse Rate [Monitor] 72 Respiratory Rate 22 Blood Pressure Blood Pressure [Left Arm] 110/55 L 02 Sat by Pulse Oximetry 97 Oxygen Delivery Method Mechanical Ventilation Fraction of Inspired Oxygen 40 40 40 08/07/23 07:00 08/07/23 08:00 08/07/23 08:00 Temperature Pulse Rate Pulse Rate [Monitor] 82 72 Respiratory Rate 35 H 23 Blood Pressure Blood Pressure [Left Arm] 132/65 114/58 L 02 Sat by Pulse Oximetry 98 96 Oxygen Delivery Method Mechanical Ventilation Mechanical Ventilation Fraction of Inspired Oxygen 40 40 40 08/07/23 08:06 08/07/23 08:17 08/07/23 09:00 Temperature Pulse Rate 81 79 Pulse Rate [Monitor] Respiratory Rate 30 H Blood Pressure 110/55 L Blood Pressure [Left Arm] 02 Sat by Pulse Oximetry Oxygen Delivery Method Fraction of Inspired Oxygen 40 40 08/07/23 09:00 08/07/23 09:17 08/07/23 10:00 Temperature 99.2 F H Pulse Rate 81 Pulse Rate [Monitor] 75 Respiratory Rate 27 H Blood Pressure 110/55 L Blood Pressure [Left Arm] 110/55 L 02 Sat by Pulse Oximetry 96 Oxygen Delivery Method Mechanical Ventilation Fraction of Inspired Oxygen 40 40 08/07/23 10:00 08/07/23 11:00 08/07/23 11:00 Temperature Pulse Rate Pulse Rate [Monitor] 68 68 Respiratory Rate 20 20 Blood Pressure Blood Pressure [Left Arm] 135/65 147/70 H 02 Sat by Pulse Oximetry 93 L 94 L Oxygen Delivery Method Mechanical Ventilation Mechanical Ventilation Fraction of Inspired Oxygen 40 40 40 08/07/23 12:00 08/07/23 12:00 08/07/23 12:03 Temperature 98.7 F Pulse Rate 81 Pulse Rate [Monitor] 68 Respiratory Rate 20 Blood Pressure 164/76 H Blood Pressure [Left Arm] 115/58 L 02 Sat by Pulse Oximetry 95 Oxygen Delivery Method Mechanical Ventilation Fraction of Inspired Oxygen 40 40 08/07/23 13:00 08/07/23 13:00 08/07/23 13:46 Temperature Pulse Rate 81 Pulse Rate [Monitor] 68 Respiratory Rate 2 L Blood Pressure 164/76 H Blood Pressure [Left Arm] 106/55 L 02 Sat by Pulse Oximetry 93 L Oxygen Delivery Method Mechanical Ventilation Fraction of Inspired Oxygen 40 40 Labs 08/07/23 04:14 08/07/23 04:14 Assessment/Plan (1) Encephalopathy: Assessment/Problem Details: CONSULT REASON: Encephalopathy SUBJECTIVE: Intubated, could not obtain history or ROS. No overnight events. Still seems to get uncomfortable when sedation is lessened and turns his head side to side in protest of oral care. EXAMINATION: Intubated and sedated. Breathes over the set ventilatory rate. Does not respond to voice. Does not follow commands. Resting comfortably today. Pupils small, equal, reactive. Oculocephalic reflexes seem intact. Winces and withdraws all limbs to noxious stimuli. DATA REVIEW: -Head CT August 06, 2023 is without acute findings. ASSESSMENT: 72 year old man with respiratory failure and influenza. Persistent encephalopathy. There is a hesitancy to wean from the ventilator because of his mental status changes. Could be metabolic or related to infection. I also think he is not using his left upper extremity is much as hisright and we can consider cerebrovascular disease or other intracranial lesions. Head CT was without any evidence of acute or concerning findings. Routine EEG looked normal. PLAN: 1. MRI brain without contrast if it can be obtained 3. Further recommendations to follow Plan: Plan Documented By: Pravin Rivers DO 08/07/23 1357 Signed By: <Electronically signed by Pravin Rivers DO> 08/07/23 4168 [facility] Work Phone: [phone]) [phone] Progress note Author Sanket Hammer [facility] August 07, 2023 12:44pm Note Date/Time August 07, 2023 12: 40pm [facility] [address] [place] [address] Nephrology Progress Note Signed Patient: Sudeep Diego JR MR#: [id number] : 1950 Acct:[id number] Age/Sex: 72 / M Adm Date: 4 Loc: Room: [address] [place] [address] Type: ADM IN Attending Dr: Vania Chacon MD Copies to: ~ Date of Service: 08/07/2023 Subjective Subjective Narrative: Mr. Diego is a 72-year-old male with history of DM2, HTN, PAD and prostate cancer. Patient was recently started on hemodialysis during his admission in June 2023 for SONYA possibly related to ATN versus Staph aureus glomerulonephritis. 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 Creatinine has increased up to 5 mg/dL with no evidence of recovery. [facility]. Patient presented to [facility] from his nursing facility with severe shortness of breath requiring intubation. Chest x-ray showed bilateral pulmonary infiltrate with possible pulmonary edema. Subsequently the patient was transferred to [facility] and he continues to be on vent. Respiratory swab showed evidence of influenza A. Patient is currently being treated for healthcare associated pneumonia with vancomycin and meropenem. Troponin was found to be elevated up to 1700. Hemoglobin was only 6.5 g/dL in setting of infection. Cardiology evaluated the patient and no intervention is planned at this point at the patient most likely has type II demand decreased cardiac perfusion. Nephrology was consulted for ESRD and dialysis. Interval history: Patient is being seen and examined in the ICU patient tolerated hemodialysis session well yesterday with 4 L ultrafiltration. Patient is calm today during my encounter. Patient is sedated Patient remains ventilated. FiO2 40%. Chest x-ray from today continues to showbilateral airspace disease continues to be on NG tube feeding There has been no recovery of kidney function. Continues to be oliguric Blood pressure is well-controlled. Cannot do review of system Exam Physical Exam Vital Signs: Temp Pulse Resp BP Pulse Ox O2 Del Method FiO2 99.2 F H 68 20 135/65 93 L Mechanical Ventilation 40 08/07/23 09:00 08/07/23 10:00 08/07/23 10:00 08/07/23 10:00 08/07/23 10:00 08/07/23 10:08/07/23 10:00 Narrative: General: Patient is calm. No acute distress Head :atraumatic normocephalic Eyes: PERRLA. Neck: no JVD no bruit. Heart: S1-S2. RRR Respiratory: Equal air entry. No wheezing no crackles Abdomen: Soft, no distention Neurology: Sedated. Extremity. No cyanosis. No edema Skin: No skin rash Objective Intake and Output I&O: Intake & Output 08/04/23 08/05/23 08/06/23 08/07/23 23:59 23:59 23:59 23:59 Intake Total 2550 / 2550 1700 / 1700 1880 / 1880 280 / 280 Output Total 3789 / 3789 157 / 157 4643 / 4643 Balance -1239 / -1239 1543 / 1543 -2763 / -2763 260 / 260 Weight 224 lb 10.417 oz 213 lb 6.519 oz 213 lb 6.519 oz 207 lb 14.334 oz Meds and Allergies Meds: Active Medications Acetaminophen (Acetaminophen 325 Mg Tablet) 650 mg PO Q6H PRN PRN Reason: Pain Stop: 07/31/24 14:12 Last Admin: 08/05/23 22:20 Dose: 650 mg Albuterol (Albuterol Hfa 200 Puff/18 Gm Inhaler) 6 puff VENT Q6HR KACI Stop: 07/31/24 11:59 Last Admin: 08/07/23 11:24 Dose: 6 puff Chlorhexidine Gluconate (Chlorhexidine Gluconate 0.12% 15 Ml Udc) 15 ml MUCOUS MEM BID KACI Stop: 07/31/24 08:59 Last Admin: 08/07/23 09:46 Dose: 15 ml Cisatracurium Besylate (Cisatracurium Besylate 20 Mg/10 Ml Vial) 10 mg IV-PUSH ONCE ONE Stop: 08/07/23 12:35 Dextrose (Dextrose 50% In Water 25 Gm/50 Ml Syringe) 0 gm IV-PUSH PRN PRN PRN Reason: Hypoglycemia Stop: 07/31/24 08:04 Docusate Sodium (Docusate Liquid 100 Mg/10 Ml Udc) 100 mg PO BID KACI Stop: 08/03/24 08:59 Last Admin: 08/07/23 09:46 Dose: 100 mg Fentanyl Citrate (Fentanyl/Pf 100 Mcg/2 Ml Vial) 50 mcg IV-PUSH Q2H PRN PRN Reason: Pain Scale 4 - 7 Last Admin: 08/03/23 21:01 Dose: 50 mcg Glucose (Dextrose 40% Gel 15 Gm Tube) 0 gm PO PRN PRN PRN Reason: Hypoglycemia Stop: 07/31/24 08:04 Heparin Sodium (Porcine) (Heparin 10,000 Unit/10 Ml Vial) 2,000 unit IV PRN PRN PRN Reason: Dialysis Stop: 08/01/24 09:40 Last Admin: 08/06/23 14:19 Dose: 2,000 unit Heparin Sodium (Porcine) (Heparin 5,000 Unit/Ml Vial) 5,000 unit SUBCUT Q8HR KACI Stop: 08/01/24 13:59 Last Admin: 08/07/23 07:01 Dose: 5,000 unit Heparin Sodium (Porcine) (Heparin 10,000 Unit/10 Ml Vial) 1,000 unit IV PRN PRN PRN Reason: Dialysis Stop: 08/05/24 10:45 Last Admin: 08/06/23 14:19 Dose: 1,000 unit Sodium Chloride (0.9% Sodium Chloride 1,000 Ml) 1,000 mls @ 0 mls/hr MISCELLANE.Q0M PRN PRN Reason: Dialysis Stop: 07/31/24 10:31 Last Infusion: 08/06/23 14:21 Dose: Infused Meropenem (Merrem) 0.5 gm in 100 mls @ 33.3 mls/hr IV Q24H KACI Stop: 08/07/23 17:01 Last Admin: 08/06/23 18:18 Dose: 33.3 mls/hr Sodium Chloride (0.9% Sodium Chloride 1,000 Ml) 1,000 mls @ 0 mls/hr MISCELLANE.Q0M PRN PRN Reason: Dialysis Stop: 08/01/24 09:40 Last Infusion: 08/02/23 23:01 Dose: Infused Dexmedetomidine HCl 400 mcg/ (Dextrose) 100 mls @ 4.84 mls/hr IV [id number]; Protocol Stop: 08/04/24 10:14 Last Admin: 08/07/23 09:17 Dose: 1.5 mcg/kg/hr, 36.3 mls/hr Midazolam HCl (Versed) 100 mg in 100 mls @ 1 mls/hr IV .Q24H [facility]; Protocol Stop: 02/01/24 22:59 Last Admin: 08/06/23 23:09 Dose: Not Given Insulin Aspart (Insulin Aspart 300 Units/3 Ml Insuln.Pen) 0 units SUBCUT Q6HR KACI; Protocol Stop: 07/31/24 11:59 Last Admin: 08/07/23 07:04 Dose: 2 units Magnesium Hydroxide (Magnesium Hydroxide Susp 30 Ml Udc) 30 ml PO DAILY PRN PRN Reason: Constipation Stop: 08/02/24 22:13 Midazolam HCl (Midazolam/Pf 2 Mg/2 Ml Vial) 4 mg IV-PUSH Q3H PRN PRN Reason: Agitation Stop: 02/01/24 11:11 Last Admin: 08/05/23 22:41 Dose: 4 mg Midazolam HCl (Midazolam/Pf 2 Mg/2 Ml Vial) 4 mg IV-PUSH ONCE PRN PRN Reason: sedation Pantoprazole Sodium (Pantoprazole 40 Mg Vial) 40 mg IV-PUSH DAILY KACI Stop: 07/31/24 08:59 Last Admin: 08/07/23 09:46 Dose: 40 mg Sennosides (Sennosides Syrup 8.8 Mg/5 Ml Udc) 8.8 mg PO BID KACI Stop: 08/03/24 08:59 Last Admin: 08/07/23 09:46 Dose: 8.8 mg Sodium Chloride (Sodium Chloride 0.9 % 10 Ml Vial.Pf) 10 ml INJECTION PRN PRN PRN Reason: Dilution Stop: 07/31/24 08:06 Last Admin: 08/07/23 09:46 Dose: 10 ml Sodium Chloride (Sodium Chloride 0.9 % 10 Ml Syringe) 10 ml IV-PUSH PRN PRN PRN Reason: Flush Stop: 07/31/24 08:06 Last Admin: 08/01/23 08:49 Dose: 10 ml Sodium Chloride (Sodium Chloride 0.9 % 10 Ml Syringe) 0 ml IV-PUSH PRN PRN PRN Reason: Flush Stop: 07/31/24 10:31 Last Admin: 08/06/23 14:19 Dose: 40 ml Sodium Chloride (Sodium Chloride 0.9 % 10 Ml Syringe) 0 ml IV-PUSH PRN PRN PRN Reason: Flush Stop: 08/01/24 09:40 Last Admin: 08/04/23 16:49 Dose: 40 ml Allergies cefepime Allergy (Unknown, Verified 07/10/23 18:46) Hives lisinopril Allergy (Unknown, Verified 07/10/23 18:46) Swelling of Lip/Tongue/Throat, SWELLING metformin Allergy (Unknown, Verified 07/10/23 18:46) Back Pain, KIDNEY PAIN Results - Nephrology Labs 08/07/23 04:14 08/07/23 04:14 Labs: 08/07/23 04:14 BUN 31 H Creatinine 2.60 H D Phosphorus 4.2 Albumin 2.3 L Radiology Impressions Impressions - last 24 hours: Impressions Head CT 08/06/23 09:22 IMPRESSION: No acute intracranial pathology. Mucosal thickening is noted in the ethmoid air cells, sphenoid sinuses, and frontal sinuses right greater than left. There is a hyperattenuating focus on the right maxillary sinus. Present portion of a previously extracted tooth or sequelae of focal consolidation Impression dictated by: Nathan Lemus M.D.08/06/2023 2:38 PM Dictation Location: [place] [address] Chest X-Ray 08/07/23 05:00 IMPRESSION: CONTINUED PARENCHYMAL CHANGES, POSSIBLY MINIMALLY IMPROVED ON THE RIGHT. Impression dictated by: Pallavi Hernandez M.D.08/07/2023 6:45 AM Dictation Location: [place] [address] Any impression(s) listed above is documentation that was entered by the reading physician into a diagnostic report(s) for Sudeep Diego JR. I have reviewed the report(s) and am incorporating any findings in the treatment plan of this patient where applicable. A&P - Nephrology Assessment/Plan (1) SONYA (acute kidney injury): Assessment/Problem Details: Patient developed SONYA during his previous admission on June 2023 with left foot infection and staph bacteremia with no evidence of recovery currently on dialysis. Baseline creatinine was 1.1 mg/dL. Patient gets dialysis on MWF schedule (2) Acute pulmonary edema: Assessment/Problem Details: Patient presents with shortness of breath and respiratory failure. Chest x-ray showed pulmonary congestion with evidence of bilateral infiltrate. 2D echo showed dilated IVC with abnormal collapsibility suggestive of volume overload (3) Acute hypoxic respiratory failure: Assessment/Problem Details: Patient has bilateral infiltrate on chest x-ray, respiratory swab was positive for influenza A. Patient is currently getting treatment for healthcare associated pneumonia as well since he has recent hospitalization (4) T2DM (type 2 diabetes mellitus): (5) Elevated troponin level not due to acute coronary syndrome: (6) Anemia of renal disease: Assessment/Problem Details: He has anemia in the setting of SONYA with superimposed infection. Patient has elevated ferritin and low iron saturation in setting of infection. Plan * Last hemodialysis session was yesterday with 4 L ultrafiltration. * ANCA, and anti-GBM antibodies are negative. SUSANA positive for SLATE SPLITTER antibodies. Not sure about the clinical significant of these * Serum sodium level is 128 mmol/L this morning. Please keep output more than input * Patient had 2 units of packed RBCs earlier this admission. Hemoglobin level has been stable around 9 g deciliter. Will continue to monitor H&H and transfuse as needed * Patient continues to be on meropenem 0.5 g every 24 hours. Blood culture showed no growth Sputum endotracheal culture showed Rajiv * Vent management as directed by pulmonary service * Will monitor daily intake, output and renal panel to adjust medications and dialysis prescription as indicated. Documented By: Sanket Hammer MD 08/07/23 1237 Signed By: <Electronically signed by Sanket Hammer MD> 08/07/23 1244 [facility] Work Phone: [phone]) 429-699403-14-2024 Progress note Author Vania Chacon [facility] August 07, 2023 10:08am Note Date/Time August 07, 2023 10: 08am [facility] [address] [place] [address] Hospitalist Progress Note Signed Patient: Sudeep Diego JR MR#: [id number] : 1950 Acct:[id number] Age/Sex: 72 / M Adm Date: 4 Loc: Room: [address] [place] [address] Type: ADM IN Attending Dr: Vania Chacon MD Copies to: ~ Date of Service: 08/07/2023 Subjective Subjective Narrative: Seen and examined On mechanical ventilation with FIO2 40% Saturation is 96% Sedated by Versed. On Precedex infusion NO fever Exam Physical Exam Vital Signs: Temp Pulse Resp BP Pulse Ox O2 Del Method FiO2 99.2 F H 81 27 H 110/55 L 96 Mechanical Ventilation 40 08/07/23 09:00 08/07/23 09:17 08/07/23 09:00 08/07/23 09:17 08/07/23 09:00 08/07/23 09:00 08/07/23 09:00 Narrative: General sedated and intubated HEENT PERRLA Neck supple no JVD no carotid bruit CVS S1-S2 regular rate and rhythm no murmur no gallop Chest bilateral wheezing Abdomen soft bowel sounds normoactive no rebound no guarding Extremities no stenosis no clubbing no edema Musculoskeletal exam normal no joint effusion Neurologic sedated and intubated Objective Lab Results 08/07/23 04:14 08/07/23 04:14 Microbiology Results Microbiology 08/01/23 07:33 Blood - Right Antecubital Blood Culture - Final NO GROWTH 5 DAYS 08/01/23 07:40 Blood - Left Hand Blood Culture - Final NO GROWTH 5 DAYS ABG Interpretation ABG results: 08/07/23 04:28 ABG pH 7.50 H ABG pCO2 32.1 L ABG pO2 56.6 L ABG HCO3 24.7 ABG Total CO2 25.7 ABG O2 Saturation 90.3 L ABG O2 Content 5.8 L ABG Base Excess 1.9 Meds Allergies and Active Meds Allergies cefepime Allergy (Unknown, Verified 07/10/23 18:46) Hives lisinopril Allergy (Unknown, Verified 07/10/23 18:46) Swelling of Lip/Tongue/Throat, SWELLING metformin Allergy (Unknown, Verified 07/10/23 18:46) Back Pain, KIDNEY PAIN Active Meds: Active Medications Generic Name Dose Route Start Last Admin Trade Name Freq PRN Reason Stop Dose Admin Acetaminophen 650 mg 08/01/23 14:13 08/05/23 22:20 Acetaminophen 325 Mg Tablet PO 07/31/24 14:12 650 mg Q6H PRN Administration Pain Albuterol 6 puff 08/01/23 12:00 08/07/23 05:32 Albuterol Hfa 200 Puff/18 Gm Inhaler VENT 07/31/24 11:59 6 puff Q6HR KACI Administration Chlorhexidine Gluconate 15 ml 08/01/23 09:00 08/07/23 09:46 Chlorhexidine Gluconate 0.12% 15 Ml Udc MUCOUS MEM 07/31/24 08:59 15 ml BID KACI Administration Dextrose 0 gm 08/01/23 08:05 Dextrose 50% In Water 25 Gm/50 Ml Syringe IV-PUSH 07/31/24 08:04 PRN PRN Hypoglycemia Docusate Sodium 100 mg 08/04/23 09:00 08/07/23 09:46 Docusate Liquid 100 Mg/10 Ml Udc PO 08/03/24 08:59 100 mg BID KACI Administration Fentanyl Citrate 50 mcg 08/02/23 09:44 08/03/23 21:01 Fentanyl/Pf 100 Mcg/2 Ml Vial IV-PUSH 50 mcg Q2H PRN Administration Pain Scale 4 - 7 Glucose 0 gm 08/01/23 08:05 Dextrose 40% Gel 15 Gm Tube PO 07/31/24 08:04 PRN PRN Hypoglycemia Heparin Sodium (Porcine) 2,000 unit 08/02/23 09:41 08/06/23 14:19 Heparin 10,000 Unit/10 Ml Vial IV 08/01/24 09:40 2,000 unit PRN PRN Administration Dialysis Heparin Sodium (Porcine) 5,000 unit 08/02/23 14:00 08/07/23 07:01 Heparin 5,000 Unit/Ml Vial SUBCUT 08/01/24 13:59 5,000 unit Q8HR KACI Administration Heparin Sodium (Porcine) 1,000 unit 08/06/23 10:46 08/06/23 14:19 Heparin 10,000 Unit/10 Ml Vial IV 08/05/24 10:45 1,000 unit PRN PRN Administration Dialysis Sodium Chloride 1,000 mls @ 0 mls/hr 08/01/23 10:32 08/06/23 14:21 0.9% Sodium Chloride 1,000 Ml MISCELLANE 07/31/24 10:31 Infused .Q0M PRN Infusion Dialysis As Directed Meropenem 0.5 gm in 100 mls @ 33.3 mls/hr 08/01/23 14:00 08/06/23 18:18 Merrem IV 08/07/23 17:01 33.3 mls/hr Q24H KACI Administration Sodium Chloride 1,000 mls @ 0 mls/hr 08/02/23 09:41 08/02/23 23:01 0.9% Sodium Chloride 1,000 Ml MISCELLANE 08/01/24 09:40 Infused .Q0M PRN Infusion Dialysis As Directed Dexmedetomidine HCl 400 mcg/ 100 mls @ 4.84 mls/hr 08/05/23 10:15 08/07/23 09:17 Dextrose IV 08/04/24 10:14 1.5 mcg/kg/hr .[id number] KACI 36.3 mls/hr Administration Protocol 0.2 MCG/KG/HR Midazolam HCl 100 mg in 100 mls @ 1 mls/hr 08/05/23 23:00 08/06/23 23:09 Versed IV 02/01/24 22:59 Not Given .Q24H KACI Protocol 1 MG/HR Insulin Aspart 0 units 08/01/23 12:00 08/07/23 07:04 Insulin Aspart 300 Units/3 Ml Insuln.Pen SUBCUT 07/31/24 11:59 2 units Q6HR KACI Administration Protocol Magnesium Hydroxide 30 ml 08/03/23 22:14 Magnesium Hydroxide Susp 30 Ml Udc PO 08/02/24 22:13 DAILY PRN Constipation Midazolam HCl 4 mg 03/12/24 11:12 08/05/23 22:41 Midazolam/Pf 2 Mg/2 Ml Vial IV-PUSH 02/01/24 11:11 4 mg Q3H PRN Administration Agitation Pantoprazole Sodium 40 mg 08/01/23 09:00 08/07/23 09:46 Pantoprazole 40 Mg Vial IV-PUSH 07/31/24 08:59 40 mg DAILY KACI Administration Sennosides 8.8 mg 08/04/23 09:00 08/07/23 09:46 Sennosides Syrup 8.8 Mg/5 Ml Udc PO 08/03/24 08:59 8.8 mg BID KACI Administration Sodium Chloride 10 ml 08/01/23 08:07 08/07/23 09:46 Sodium Chloride 0.9 % 10 Ml Vial.Pf INJECTION 07/31/24 08:06 10 ml PRN PRN Administration Dilution Sodium Chloride 10 ml 08/01/23 08:07 08/01/23 08:49 Sodium Chloride 0.9 % 10 Ml Syringe IV-PUSH 07/31/24 08:06 10 ml PRN PRN Administration Flush Sodium Chloride 0 ml 08/01/23 10:32 08/06/23 14:19 Sodium Chloride 0.9 % 10 Ml Syringe IV-PUSH 07/31/24 10:31 40 ml PRN PRN Administration Flush Sodium Chloride 0 ml 08/02/23 09:41 08/04/23 16:49 Sodium Chloride 0.9 % 10 Ml Syringe IV-PUSH 08/01/24 09:40 40 ml PRN PRN Administration Flush A&P - Hospitalist Assessment/Plan (1) Acute hypoxic respiratory failure: (2) Acute pulmonary edema: (3) ESRD (end stage renal disease): (4) Leukocytosis: (5) T2DM (type 2 diabetes mellitus): (6) Hyperlipemia: (7) HTN (hypertension): (8) PAD (peripheral artery disease): (9) SONYA (acute kidney injury): Plan ASSESSMENT AND PLAN: Acute hypoxic respiratory failure Acute influenza A Seen and examined Still still on mechanical vent Sedated by Versed and Precedex Saturation 96% Had dialysis yesterday NO fever Repeat chest xray : CONTINUED PARENCHYMAL CHANGES, POSSIBLY MINIMALLY IMPROVED ON THE RIGHT EEG MRI brain Neurology is following ICU team is following Severe progressive anemia, most likely related to chronic kidney disease and chronic disease with his recent diabetic foot. Hemoglobin and hematocrit are stable 9.3/27.5 Recent severe issues with diabetic foot with kim osteomyelitis, visible bone, requiring a transmetatarsal amputation the previous hospital stay on 07/18/2023. Recent MSSA osteomyelitis of the left forefoot, appears to be treated successfully with a trans metatarsal amputation. No fever No leukocytosis Continue meropenem Diabetes mellitus type 2, described as brittle, with recent hemoglobin A1c uncontrolled at 8.1. Accu-Check every 6 hours Insulin sliding scale History of peripheral arterial disease with angioplasty to the left lower extremity in the past. History of hypertension: Controlled History of dyslipidemia. n.p.o. 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 Hyponatremia: Nephrology is following / BMP daily DVT prophylaxis heparin Documented By: Vania Chacon MD 08/07/23 1001 Signed By: <Electronically signed by Vania Chacon MD> 08/07/23 1008 [facility] Work Phone: [phone] Progress note Author Sanket Hammer [facility] August 07, 2023 9:25am Note Date/Time August 06, 2023 2:3 4pm [facility] [address] [place] [address] Nephrology Progress Note Signed Patient: Sudeep Diego JR MR#: [id number] : 1950 Acct:[id number] Age/Sex: 72 / M Adm Date: 4 Loc: Room: [address] [place] [address] Type: ADM IN Attending Dr: Vania Chacon MD Copies to: ~ Date of Service: 08/06/2023 Subjective Subjective Narrative: Mr. Diego is a 72-year-old male with history of DM2, HTN, PAD and prostate cancer. Patient was recently started on hemodialysis during his admission in June 2023 for SONYA possibly related to ATN versus Staph aureus glomerulonephritis. 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 Creatinine has increased up to 5 mg/dL with no evidence of recovery. [facility] was [facility]. Patient presented to [facility] from his nursing facility with severe shortness of breath requiring intubation. Chest x-ray showed bilateral pulmonary infiltrate with possible pulmonary edema. Subsequently the patient was transferred to [facility] and he continues to be on vent. Respiratory swab showed evidence of influenza A. Patient is currently being treated for healthcare associated pneumonia with vancomycin and meropenem. Troponin was found to be elevated up to 1700. Hemoglobin was only 6.5 g/dL in setting of infection. Cardiology evaluated the patient and no intervention is planned at this point at the patient most likely has type II demand decreased cardiac perfusion. Nephrology was consulted for ESRD and dialysis. Interval history: Patient is being seen and examined in the ICU while in hemodialysis session. Patient remains slightly agitated. Patient remains ventilated. FiO2 40%. Chest x-ray from today continues to showbilateral airspace disease continues to be on NG tube feeding Has been no recovery of kidney function. Ultrafiltration is set at 4 L today Blood pressure is well-controlled. Continues to have Santana catheter with urine output 150 cc in 24 hours. Cannot do review of system Exam Physical Exam Vital Signs: Temp Pulse Resp BP Pulse Ox O2 Del Method FiO2 98.6 F 65 21 131/62 93 L Mechanical Ventilation 40 08/06/23 12:00 08/06/23 13:00 08/06/23 12:30 08/06/23 13:00 08/06/23 13:00 08/06/23 13:08/06/23 14:00 Narrative: General: Patient is slightly agitated. Opens his eyes but does not follow commands Head :atraumatic normocephalic Eyes: PERRLA. Neck: no JVD no bruit. Heart: S1-S2. RRR Respiratory: Equal air entry. No wheezing no crackles Abdomen: Soft, no distention Neurology: Sedated. Extremity. No cyanosis. No edema Skin: No skin rash Objective Intake and Output I&O: Intake & Output 08/03/23 08/04/23 08/05/23 08/06/23 23:59 23:59 23:59 23:59 Intake Total 2550 / 2550 1700 / 1700 1160 / 1160 Output Total 3789 / 3789 157 / 157 15 / 15 Balance -1239 / -1239 1543 / 1543 1145 / 1145 Weight 224 lb 10.417 oz 213 lb 6.519 oz 213 lb 6.519 oz Meds and Allergies Meds: Active Medications Acetaminophen (Acetaminophen 325 Mg Tablet) 650 mg PO Q6H PRN PRN Reason: Pain Stop: 07/31/24 14:12 Last Admin: 08/05/23 22:20 Dose: 650 mg Albuterol (Albuterol Hfa 200 Puff/18 Gm Inhaler) 6 puff VENT Q6HR KACI Stop: 07/31/24 11:59 Last Admin: 08/06/23 12:02 Dose: 6 puff Chlorhexidine Gluconate (Chlorhexidine Gluconate 0.12% 15 Ml Udc) 15 ml MUCOUS MEM BID KCAI Stop: 07/31/24 08:59 Last Admin: 08/06/23 08:42 Dose: 15 ml Dextrose (Dextrose 50% In Water 25 Gm/50 Ml Syringe) 0 gm IV-PUSH PRN PRN PRN Reason: Hypoglycemia Stop: 07/31/24 08:04 Docusate Sodium (Docusate Liquid 100 Mg/10 Ml Udc) 100 mg PO BID KACI Stop: 08/03/24 08:59 Last Admin: 08/06/23 08:42 Dose: 100 mg Fentanyl Citrate (Fentanyl/Pf 100 Mcg/2 Ml Vial) 50 mcg IV-PUSH Q2H PRN PRN Reason: Pain Scale 4 - 7 Last Admin: 08/03/23 21:01 Dose: 50 mcg Glucose (Dextrose 40% Gel 15 Gm Tube) 0 gm PO PRN PRN PRN Reason: Hypoglycemia Stop: 07/31/24 08:04 Heparin Sodium (Porcine) (Heparin 10,000 Unit/10 Ml Vial) 2,000 unit IV PRN PRN PRN Reason: Dialysis Stop: 08/01/24 09:40 Last Admin: 08/06/23 14:19 Dose: 2,000 unit Heparin Sodium (Porcine) (Heparin 5,000 Unit/Ml Vial) 5,000 unit SUBCUT Q8HR K[facility]I Stop: 08/01/24 13:59 Last Admin: 08/06/23 13:59 Dose: 5,000 unit Heparin Sodium (Porcine) (Heparin 10,000 Unit/10 Ml Vial) 1,000 unit IV PRN PRN PRN Reason: Dialysis Stop: 08/05/24 10:45 Last Admin: 08/06/23 14:19 Dose: 1,000 unit Sodium Chloride (0.9% Sodium Chloride 1,000 Ml) 1,000 mls @ 0 mls/hr MISCELLANE.Q0M PRN PRN Reason: Dialysis Stop: 07/31/24 10:31 Last Infusion: 08/06/23 14:21 Dose: Infused Meropenem (Merrem) 0.5 gm in 100 mls @ 33.3 mls/hr IV Q24H [facility] Stop: 08/07/23 17:01 Last Infusion: 08/05/23 17:17 Dose: Infused Sodium Chloride (0.9% Sodium Chloride 1,000 Ml) 1,000 mls @ 0 mls/hr MISCELLANE.Q0M PRN PRN Reason: Dialysis Stop: 08/01/24 09:40 Last Infusion: 08/02/23 23:01 Dose: Infused Fentanyl (Fentanyl 1,000 Mcg/100 Ml D5w) 1,000 mcg in 100 mls @ 2.5 mls/hr IV .Q24H [facility]; Protocol Last Admin: 08/06/23 06:29 Dose: Not Given Dexmedetomidine HCl 400 mcg/ (Dextrose) 100 mls @ 4.84 mls/hr IV .[id number] [facility]; Protocol Stop: 08/04/24 10:14 Last Admin: 08/06/23 10:58 Dose: 1.5 mcg/kg/hr, 36.3 mls/hr Midazolam HCl (Versed) 100 mg in 100 mls @ 1 mls/hr IV .Q24H [facility]; Protocol Stop: 02/01/24 22:59 Last Titration: 08/05/23 23:30 Dose: 3 mg/hr, 3 mls/hr Insulin Aspart (Insulin Aspart 300 Units/3 Ml Insuln.Pen) 0 units SUBCUT Q6HR [facility]; Protocol Stop: 07/31/24 11:59 Last Admin: 08/06/23 11:53 Dose: 2 units Magnesium Hydroxide (Magnesium Hydroxide Susp 30 Ml Udc) 30 ml PO DAILY PRN PRN Reason: Constipation Stop: 08/02/24 22:13 Midazolam HCl (Midazolam/Pf 2 Mg/2 Ml Vial) 4 mg IV-PUSH Q3H PRN PRN Reason: Agitation Stop: 02/01/24 11:11 Last Admin: 08/05/23 22:41 Dose: 4 mg Pantoprazole Sodium (Pantoprazole 40 Mg Vial) 40 mg IV-PUSH DAILY [facility]I Stop: 07/31/24 08:59 Last Admin: 08/06/23 08:42 Dose: 40 mg Sennosides (Sennosides Syrup 8.8 Mg/5 Ml Udc) 8.8 mg PO BID KACI Stop: 08/03/24 08:59 Last Admin: 08/06/23 08:42 Dose: 8.8 mg Sodium Chloride (Sodium Chloride 0.9 % 10 Ml Vial.Pf) 10 ml INJECTION PRN PRN PRN Reason: Dilution Stop: 07/31/24 08:06 Last Admin: 08/06/23 08:43 Dose: 10 ml Sodium Chloride (Sodium Chloride 0.9 % 10 Ml Syringe) 10 ml IV-PUSH PRN PRN PRN Reason: Flush Stop: 07/31/24 08:06 Last Admin: 08/01/23 08:49 Dose: 10 ml Sodium Chloride (Sodium Chloride 0.9 % 10 Ml Syringe) 0 ml IV-PUSH PRN PRN PRN Reason: Flush Stop: 07/31/24 10:31 Last Admin: 08/06/23 14:19 Dose: 40 ml Sodium Chloride (Sodium Chloride 0.9 % 10 Ml Syringe) 0 ml IV-PUSH PRN PRN PRN Reason: Flush Stop: 08/01/24 09:40 Last Admin: 08/04/23 16:49 Dose: 40 ml Allergies cefepime Allergy (Unknown, Verified 07/10/23 18:46) Hives lisinopril Allergy (Unknown, Verified 07/10/23 18:46) Swelling of Lip/Tongue/Throat, SWELLING metformin Allergy (Unknown, Verified 07/10/23 18:46) Back Pain, KIDNEY PAIN Results - Nephrology Labs 08/07/23 04:14 08/07/23 04:14 Labs: 08/06/23 04:10 BUN 49 H Creatinine 3.39 H Radiology Impressions Impressions - last 24 hours: Impressions Chest X-Ray 08/06/23 05:00 IMPRESSION: NO SIGNIFICANT CHANGE IN CHEST FINDINGS. Impression dictated by: Georgi Simmons Jr., D.O.08/06/2023 8:24 AM Dictation Location: [place] [address] Any impression(s) listed above is documentation that was entered by the reading physician into a diagnostic report(s) for Globe JR. I have reviewed the report(s) and am incorporating any findings in the treatment plan of this patient where applicable. A&P - Nephrology Assessment/Plan (1) SONYA (acute kidney injury): Assessment/Problem Details: Patient developed SONYA during his previous admission on June 2023 with left foot infection and staph bacteremia with no evidence of recovery currently on dialysis. Baseline creatinine was 1.1 mg/dL. Patient gets dialysis on MWF schedule (2) Acute pulmonary edema: Assessment/Problem Details: Patient presents with shortness of breath and respiratory failure. Chest x-ray showed pulmonary congestion with evidence of bilateral infiltrate. 2D echo showed dilated IVC with abnormal collapsibility suggestive of volume overload (3) Acute hypoxic respiratory failure: Assessment/Problem Details: Patient has bilateral infiltrate on chest x-ray, respiratory swab was positive for influenza A. Patient is currently getting treatment for healthcare associated pneumonia as well since he has recent hospitalization (4) T2DM (type 2 diabetes mellitus): (5) Elevated troponin level not due to acute coronary syndrome: (6) Anemia of renal disease: Assessment/Problem Details: He has anemia in the setting of SONYA with superimposed infection. Patient has elevated ferritin and low iron saturation in setting of infection. Plan * Hemodialysis in today for 4-hours with a blood flow rate 350, dialysate flow rate 500, ultrafiltration 4 L * ANCA, nd anti-GBM antibodies to rule out vasculitis * Serum sodium level is 129 mmol/L this morning. Serum sodium level should improve with ultrafiltration. Please keep output more than input * Patient had 2 units of packed RBCs this admission. Hemoglobin level 9.3 g deciliter today. Will continue to monitor H&H and transfuse as needed * Patient continues to be on meropenem 0.5 g every 24 hours. Blood culture showed no growth Sputum endotracheal culture showed Rajiv * Vent management as directed by pulmonary service * Will monitor daily intake, output and renal panel to adjust medications and dialysis prescription as indicated. Documented By: Sanket Hammer MD 08/06/23 0453 Signed By: <Electronically signed by Sanket Hammer MD> 08/07/23 0947 [facility] - [place] Work Phone: [phone]) [phone] Progress note Author Mehul Garrett [facility] August 06, 2023 8:14pm Note Date/Time August 06, 2023 8:3 7am [facility] [address] [place] [address] Pulmonology Progress Note Signed Patient: Sudeep Diego JR MR#: [id number] : 1950 Acct:[id number] Age/Sex: 72 / M Adm Date: 4 Loc: Room: [address] [place] [address] Type: ADM IN Attending Dr: Vania Chacon MD Copies to: ~ Date of Service: 08/06/2023 Subjective Subjective Narrative: Patient remains intubated and sedated though occasionally agitated despite Versed drip in addition to dexmedetomidine infusion. Case was discussed with brother and sister at bedside at the time of my visit. Exam Physical Exam Vital Signs: Temp Pulse Resp BP Pulse Ox O2 Del Method FiO2 98.6 F 73 32 H 172/83 H 96 Mechanical Ventilation 40 08/06/23 08:00 08/06/23 08:00 08/06/23 08:00 08/06/23 08:00 08/06/23 08:00 08/06/23 08:00 08/06/23 08:00 Const Nutritional Appearance: overweight Orientation: not alert and not awake HEENT Head: normal to inspection, normocephalic and atraumatic Ears: external ears normal Nose: external nose normal Face and sinus: normal facial exam Mouth: other (8.0 mm ID ET tube) Eyes Eyelids: eyelids normal Neck Neck: normal visual inspection and no lymphadenopathy Chest Chest palpation & inspection: normal inspection of the chest Resp Auscultation: clear to auscultation bilaterally, no rales, no rhonchi and no wheezes Cardio Rate: regular rate Rhythm: regular rhythm Heart Sounds: S1 normal, S2 normal, no gallops, no murmurs and no rubs GI Inspection: normal to inspection Palpation: soft and nontender Auscultation: hypoactive bowel sounds Rectal Exam: deferred General: deferred Skin General: no rashes or lesions noted (warm and dry) Extrem General: no pedal edema and amputation noted Transmetatarsal: left Objective Intake and Output I&O - Last 24 Hours: Intake & Output 08/05/23 08/06/23 08/06/23 23:59 07:59 15:59 Intake Total 720 / 1700 560 / 560 Output Total 50 / 157 15 / 15 Balance 670 / 1543 545 / 545 Weight 213 lb 6.519 oz Labs 08/06/23 04:10 08/06/23 04:10 Microbiology Micro: Microbiology 3 08/01/23 07:33 Blood Culture - Final Blood - Right Antecubital NO GROWTH 5 DAYS 08/01/23 07:40 Blood Culture - Final Blood - Left Hand NO GROWTH 5 DAYS Imaging and Cardiology Chest x-ray: Status: image reviewed by me Additional comments: Date of Service: 08/06/23 XR/XR chest 1V portable: on vent SINGLE VIEW CHEST CLINICAL HISTORY: Ventilator care COMPARISON: Chest 08/05/2023 FINDINGS: [id number] unchanged positions. Heart and mediastinal structures appear unchanged. Degree of bilateral airspace disease unchanged. No pneumothorax, large pleural effusion orfree air. XR/XR chest 1V portable IMPRESSION: NO SIGNIFICANT CHANGE IN CHEST FINDINGS. CT scan - head: Status: image reviewed by me Additional comments: Date of Service: 08/06/23 CT/CT head/brain wo con: encephalopathy work up CT head/brain wo con 08/06/2023 9:24 AM SIGNS AND SYMPTOMS: Encephalopathy TECHNIQUE:Multi-detector CT axial slices of the brain were obtained without IV contrast. CT was performed with one or more of the following dose reduction techniques: Automated exposure control, adjustment of the mA and/or kV accordingto patient size, or use of iterative reconstruction technique. COMPARISON: None. FINDINGS: There is no shift of the midline structures, acute intracranial bleeding, mass effects, or evidence of acute ischemia. Atherosclerotic changes are noted in the intracranial segments of the internal carotid arteries. The ventricular system is normal in size. The brainstem and the cerebellum are unremarkable. The visualized intraorbital contents and the infratemporal soft tissues show no acute abnormality. Mucosal thickening is noted in the ethmoid air cells, sphenoid sinuses, and frontal sinuses right greater than left. There is a hyperattenuating focus on the right maxillary sinus. Present portion of a previously extracted tooth or sequelae of focal consolidation. The osseous structures in the skull base and the calvarium show no abnormality. CT/CT head/brain wo con IMPRESSION: No acute intracranial pathology. Mucosal thickening is noted in the ethmoid air cells, sphenoid sinuses, and frontal sinuses right greater than left. There is a hyperattenuating focus on the right maxillary sinus. Present portion of a previously extracted tooth or sequelae of focal consolidation Additional Results Results Comments: 08/06/23 04:52 ABG pH 7.40 ABG pCO2 38.2 ABG pO2 131.8 H* ABG HCO3 23.2 ABG Total CO2 24.4 ABG O2 Saturation 98.7 ABG O2 Content 6.3 L ABG Base Excess -1.3 14/500/40/5 Assessment/Plan Assessment/Plan (1) Acute hypoxic respiratory failure: (2) Acute pulmonary edema: (3) ESRD (end stage renal disease): (4) T2DM (type 2 diabetes mellitus): (5) PAD (peripheral artery disease): Plan Hospital day #5, ventilator day #5 for patient with respiratory failure, influenza A, diabetes mellitus, end-stage renal disease, and peripheral vasculardisease. Patient is improved from a respiratory perspective but continues encephalopathic and agitated. We will proceed with head CT scan and obtain ammonia level with remaining chemistries unremarkable. We can then proceed withneurologic evaluation to ensure I am not missing other causes for the patient's encephalopathy other than his critical illness and his prior sedation. We will stay off propofol due to his hypertriglyceridemia and try and keep patient off fentanyl and utilize Versed drip and ultimately may transition to antipsychoticsas QT interval allows. Documented By: Mehul Garrett MD 4 [id number] Signed By: <Electronically signed by MD Mehul Garrett> 08/06/232013 [facility] Work Phone: [phone]) 343-915203-13-2024 Consult note Author Pravin Rivers [facility] August 06, 2023 5:19pm Note Date/Time August 06, 2023 5:1 9pm [facility] [address] [place] [address] Neurology Consult Note Signed Patient: Sudeep Diego JR MR#: [id number] : 1950 Acct:[id number] Age/Sex: 72 / M Adm Date: 4 Loc: Room: [address] [place] [address] Type: ADM IN Attending Dr: Vania Chacon MD Copies to: DO Vania Russell MD Marc Naderer, MD~ HPI Consult Date: 08/06/23 Retail Zone Specialist: Pravin Rivers DO COUNTS INCLUDE 234 BEDS AT THE [facility] Medical History (Updated 08/06/23 @ 17:09 by Pravin Rivers DO) Anemia of renal disease SONYA (acute kidney injury) T2DM (type 2 diabetes mellitus) Hyperlipemia HTN (hypertension) PAD (peripheral artery disease) Gangrene of 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 Osteomyelitis Diabetic foot infection Diabetes mellitus due to underlying condition with [...] Hypertension Mother Diabetes History of stroke Legacy Famx Problem: Diagnosed with Stroke Stroke Brother Cancer muscle Social History Smoking Status: Light tobacco smoker [...] 40 mg PO DAILY 01/13/23 [History Confirmed 08/01/23] clopidogrel 75 mg tablet (Plavix) 75 mg PO DAILY angioplasty left leg 3 months #90 tabs 01/13/23 [Rx Confirmed 08/01/23] duloxetine 60 mg capsule,delayed release 60 mg PO DAILY 01/13/23 [History Confirmed 08/01/23] flash glucose sensor (FreeStyle Shawn 2 Sensor kit) 01/13/23 [History Confirmed 07/16/23] metoprolol succinate 50 mg tablet,extended release 24 hr 50 mg PO DAILY 01/13/23[History Confirmed 08/01/23] insulin glargine 100 unit/mL (3 mL) subcutaneous pen (Basaglar KwikPen U-100 Insulin) 37 unit subcut 2XD 02/23/23 [History Confirmed 08/01/23] insulin lispro 100 unit/mL subcutaneous pen (Humalog KwikPen (U-100) Insulin) See Rx Instructions .Route .COMPLEX 02/23/23 [History Confirmed 08/01/23] amlodipine 10 mg tablet 10 mg PO DAILY #30 tabs 07/23/23 [Rx Confirmed 08/01/23] furosemide 80 mg tablet 80 mg PO BID@0800,1600 30 days #60 tabs 07/23/23 [Rx Confirmed 08/01/23] oxycodone 5 mg tablet 10 mg (2 x 5 mg) PO Q4H PRN Pain Scale 4 - 7 3 days #10 tabs 07/23/23 [Rx Confirmed 08/01/23] sennosides 8.6 mg-docusate sodium 50 mg tablet 2 tab PO BID #10 tabs 07/23/23 [Rx Confirmed 08/01/23] acetaminophen 325 mg capsule 650 mg (2 x 325 mg) PO Q4-6H PRN pain #30 caps 07/26/23 [Rx Confirmed 08/01/23] atorvastatin 40 mg tablet 40 mg PO QPM #0 tabs 07/26/23 [Rx Confirmed 08/01/23] baclofen 10 mg tablet 10 mg PO BID PRN muscle spams #10 tabs 07/26/23 [Rx Confirmed 08/01/23] gabapentin 300 mg capsule 300 mg PO QPM 30 days #30 caps 07/26/23 [Rx Confirmed 08/01/23] ondansetron 4 mg disintegrating tablet 4 - 8 mg (1 - 2 x 4 mg) PO Q6HR PRN nausea with dialysis #10 tabs 07/26/23 [Rx Confirmed 08/01/23] pantoprazole 40 mg tablet,delayed release 40 mg PO QAM 30 days #0 tabs 07/26/23 [Rx Confirmed 08/01/23] polyethylene glycol 3350 17 gram oral powder packet (HealthyLax) 17 g PO DAILY PRN Constipation #0 ea 07/26/23 [Rx Confirmed 08/01/23] Exam Physical Exam Vital Signs: Temp Pulse Resp BP Pulse Ox O2 Del Method FiO2 97.8 F 72 21 131/74 95 Mechanical Ventilation 40 08/06/23 16:00 08/06/23 17:00 08/06/23 17:00 08/06/23 17:00 08/06/23 17:00 08/06/23 17:00 08/06/23 17:00 Results - Neuro Laboratory Findings 08/06/23 04:10 08/06/23 04:10 Lab Results: ESR 21 mm/hr (0-19) H 08/01/23 07:18 Ammonia 39 umol/L (11-35) H 08/06/23 09:31 Diagnostic Findings Imaging/Impressions: ITS Impressions Chest X-Ray 08/01/23 06:44 IMPRESSION: LIFE-SUPPORT DEVICES, DESCRIBED. BILATERAL GROUND GLASS OPACITIES. PORTABLE SINGLE VIEW ABDOMEN COMPARISON: None Supine view of the abdomen was obtained. The OG tube extends into the stomach. The side-port is beyond the GE junction. There is no dilated bowel at the upper imaged abdomen. Endplate spurring is noted. IMPRESSION: OG TUBE WITHIN THE STOMACH. Impression dictated by: Pallavi Hernandez M.D.08/01/2023 7:14 AM Dictation Location: [place] [address] Venous Duplex 08/01/23 08:05 IMPRESSION: NO EVIDENCE FOR DEEP VEIN THROMBOSIS OR PROXIMAL SUPERFICIAL THROMBOPHLEBITIS INTHE RIGHT OR LEFT LOWER EXTREMITY. Impression dictated by: Dhruv Bautista M.D.08/02/2023 9:26 AM Dictation Location: [facility]04 Chest X-Ray 08/02/23 05:00 IMPRESSION: SLIGHT LIMITED STUDY. CONTINUED PARENCHYMAL CHANGES. Impression dictated by: Pallavi Hernandez M.D.08/02/2023 8:10 AM Dictation Location: [facility]-02 Chest X-Ray 08/03/23 05:00 IMPRESSION: CONTINUED BILATERAL PARENCHYMAL CHANGES. Impression dictated by: Pallavi Hernandez M.D.08/03/2023 8:05 AM Dictation Location: [facility]02 Chest X-Ray 08/04/23 05:00 IMPRESSION: PERSISTENT BILATERAL PARENCHYMAL CHANGES Impression dictated by: Pallavi Hernandez M.D.08/04/2023 7:03 AM Dictation Location: [facility]12 Chest X-Ray 08/05/23 05:00 IMPRESSION: CONTINUED BILATERAL PARENCHYMAL CHANGES. Impression dictated by: Pallavi Hernandez M.D.08/05/2023 7:17 AM Dictation Location: [place] [address] Chest X-Ray 08/06/23 05:00 IMPRESSION: NO SIGNIFICANT CHANGE IN CHEST FINDINGS. Impression dictated by: Georgi Simmons Jr., D.O.08/06/2023 8:24 AM Dictation Location: [place] [address] 08/06/23 09:22 IMPRESSION: No acute intracranial pathology. Mucosal thickening is noted in the ethmoid air cells, sphenoid sinuses, and frontal sinuses right greater than left. There is a hyperattenuating focus on the right maxillary sinus. Present portion of a previously extracted tooth or sequelae of focal consolidation Impression dictated by: Nathan Lemus M.D.08/06/2023 2:38 PM Dictation Location: [place] [address] Assessment/Plan (1) Encephalopathy: Assessment/Problem Details: CONSULT REASON: Encephalopathy HPI: 72-year-old man with diabetes, end-stage renal disease, peripheral vascular disease. Who was transferred here from the [facility] in the marketing technologist hours of August 01, 2023. At the [facility] he had been intubated for respiratory issues. He had been hospitalized here from July 10 through July 25 with osteomyelitis of a diabetic foot wound on his left foot and he had a transmetatarsal amputation. Now has been found to have influenza A. Per nursing staff, as sedation is decreased he becomes incredibly uncomfortable to the point he nearly extubates himself despite restraints, gets tachypneic and tachycardic and just shakes his head [id number] [id number]. Does not seem to be following commands. EXAMINATION: Intubated and sedated. Breathes over the set ventilatory rate. Does not respond to voice. Does not follow commands. Turns head [id number] repeatedly. Appears uncomfortable. Pupils small, equal, reactive. Oculocephalic reflexes seem intact. Spontaneous movements of right upper extremity. Did not see spontaneous movements of left upper extremity. All limbs move in response to noxious stimuli proximally. DATA REVIEW: -Head CT August 06, 2023 is without acute findings. ASSESSMENT: Persistent encephalopathy. There is a hesitancy to wean from the ventilator because of his mental status changes. Could be metabolic or related to infection. I also think he is not using his left upper extremity is much as hisright and we can consider cerebrovascular disease or other intracranial lesions. The head CT from today does not show evidence of any acute process. PLAN: 1. Routine EEG 2. MRI brain without contrast 3. Further recommendations to follow Documented By: Pravin Rivers DO 08/06/231707 Signed By: <Electronically signed by Pravin Rivers DO> 08/06/231718 [facility] Work Phone: [phone]) 319-342203-13-2024 Progress note Author Vania Chacon [facility] August 06, 2023 10:00am Note Date/Time August 06, 2023 9:5 9am [facility] [address] [place] [address] Hospitalist Progress Note Signed Patient: Sudeep Diego JR MR#: [id number] : 1950 Acct:[id number] Age/Sex: 72 / M Adm Date: 4 Loc: Room: [address] [place] [address] Type: ADM IN Attending Dr: Vania Chacon MD Copies to: ~ Date of Service: 08/06/2023 Subjective Subjective Narrative: Seen and examined On mechanical ventilation Sedated NO fever Exam Physical Exam Vital Signs: Temp Pulse Resp BP Pulse Ox O2 Del Method FiO2 98.6 F 65 19 137/61 95 Mechanical Ventilation 40 08/06/23 08:00 08/06/23 09:00 08/06/23 09:00 08/06/23 09:00 08/06/23 09:00 08/06/23 09:00 08/06/23 09:00 Narrative: General sedated and intubated HEENT PERRLA Neck supple no JVD no carotid bruit CVS S1-S2 regular rate and rhythm no murmur no gallop Chest bilateral wheezing Abdomen soft bowel sounds normoactive no rebound no guarding Extremities no stenosis no clubbing no edema Musculoskeletal exam normal no joint effusion Neurologic sedated and intubated Objective Lab Results 08/06/23 04:10 08/06/23 04:10 Microbiology Results Microbiology 08/01/23 07:33 Blood - Right Antecubital Blood Culture - Final NO GROWTH 5 DAYS 08/01/23 07:40 Blood - Left Hand Blood Culture - Final NO GROWTH 5 DAYS ABG Interpretation ABG results: 08/06/23 04:52 ABG pH 7.40 ABG pCO2 38.2 ABG pO2 131.8 H* ABG HCO3 23.2 ABG Total CO2 24.4 ABG O2 Saturation 98.7 ABG O2 Content 6.3 L ABG Base Excess -1.3 Meds Allergies and Active Meds Allergies cefepime Allergy (Unknown, Verified 07/10/23 18:46) Hives lisinopril Allergy (Unknown, Verified 07/10/23 18:46) Swelling of Lip/Tongue/Throat, SWELLING metformin Allergy (Unknown, Verified 07/10/23 18:46) Back Pain, KIDNEY PAIN Active Meds: Active Medications Generic Name Dose Route Start Last Admin Trade Name Freq PRN Reason Stop Dose Admin Acetaminophen 650 mg 08/01/23 14:13 08/05/23 22:20 Acetaminophen 325 Mg Tablet PO 07/31/24 14:12 650 mg Q6H PRN Administration Pain Albuterol 6 puff 08/01/23 12:00 08/06/23 05:05 Albuterol Hfa 200 Puff/18 Gm Inhaler VENT 07/31/24 11:59 6 puff Q6HR KACI Administration Chlorhexidine Gluconate 15 ml 08/01/23 09:00 08/06/23 08:42 Chlorhexidine Gluconate 0.12% 15 Ml Udc MUCOUS MEM 07/31/24 08:59 15 ml BID KACI Administration Dextrose 0 gm 08/01/23 08:05 Dextrose 50% In Water 25 Gm/50 Ml Syringe IV-PUSH 07/31/24 08:04 PRN PRN Hypoglycemia Docusate Sodium 100 mg 08/04/23 09:00 08/06/23 08:42 Docusate Liquid 100 Mg/10 Ml Udc PO 08/03/24 08:59 100 mg BID KACI Administration Fentanyl Citrate 50 mcg 08/02/23 09:44 08/03/23 21:01 Fentanyl/Pf 100 Mcg/2 Ml Vial IV-PUSH 50 mcg Q2H PRN Administration Pain Scale 4 - 7 Glucose 0 gm 08/01/23 08:05 Dextrose 40% Gel 15 Gm Tube PO 07/31/24 08:04 PRN PRN Hypoglycemia Heparin Sodium (Porcine) 2,000 unit 08/01/23 10:32 08/04/23 18:04 Heparin 10,000 Unit/10 Ml Vial IV 07/31/24 10:31 2,000 unit PRN PRN Administration Dialysis Heparin Sodium (Porcine) 500 unit 08/01/23 10:32 08/04/23 18:05 Heparin 10,000 Unit/10 Ml Vial IV 07/31/24 10:31 500 unit PRN PRN Administration Dialysis Heparin Sodium (Porcine) 2,000 unit 08/02/23 09:41 08/02/23 22:59 Heparin 10,000 Unit/10 Ml Vial IV 08/01/24 09:40 2,000 unit PRN PRN Administration Dialysis Heparin Sodium (Porcine) 5,000 unit 08/02/23 14:00 08/06/23 06:28 Heparin 5,000 Unit/Ml Vial SUBCUT 08/01/24 13:59 5,000 unit Q8HR KACI Administration Sodium Chloride 1,000 mls @ 0 mls/hr 08/01/23 10:32 08/04/23 18:05 0.9% Sodium Chloride 1,000 Ml MISCELLANE 07/31/24 10:31 Infused .Q0M PRN Infusion Dialysis As Directed Meropenem 0.5 gm in 100 mls @ 33.3 mls/hr 08/01/23 14:00 08/05/23 17:17 Merrem IV 08/07/23 17:01 Infused Q24H KACI Infusion Sodium Chloride 1,000 mls @ 0 mls/hr 08/02/23 09:41 08/02/23 23:01 0.9% Sodium Chloride 1,000 Ml MISCELLANE 08/01/24 09:40 Infused .Q0M PRN Infusion Dialysis As Directed Fentanyl 1,000 mcg in 100 mls @ 2.5 mls/hr 08/03/23 22:30 08/06/23 06:29 Fentanyl 1,000 Mcg/100 Ml D5w IV Not Given .Q24H KACI Protocol 25 MCG/HR Dexmedetomidine HCl 400 mcg/ 100 mls @ 4.84 mls/hr 08/05/23 10:15 08/06/23 07:43 Dextrose IV 08/04/24 10:14 1.5 mcg/kg/hr .[id number] KACI 36.3 mls/hr Administration Protocol 0.2 MCG/KG/HR Midazolam HCl 100 mg in 100 mls @ 1 mls/hr 08/05/23 23:00 08/05/23 23:30 Versed IV 02/01/24 22:59 3 mg/hr .Q24H KACI 3 mls/hr Titration Protocol 1 MG/HR Magnesium Sulfate 4 gm in 100 mls @ 25 mls/hr 08/06/23 09:20 Magnesium Sulf 4 Gm-*Swfi* IV 08/06/23 13:19 ONCE ONE Insulin Aspart 0 units 08/01/23 12:00 08/06/23 06:28 Insulin Aspart 300 Units/3 Ml Insuln.Pen SUBCUT 07/31/24 11:59 2 units Q6HR KACI Administration Protocol Magnesium Hydroxide 30 ml 08/03/23 22:14 Magnesium Hydroxide Susp 30 Ml Udc PO 08/02/24 22:13 DAILY PRN Constipation Midazolam HCl 4 mg 08/05/23 11:12 08/05/23 22:41 Midazolam/Pf 2 Mg/2 Ml Vial IV-PUSH 02/01/24 11:11 4 mg Q3H PRN Administration Agitation Pantoprazole Sodium 40 mg 08/01/23 09:00 08/06/23 08:42 Pantoprazole 40 Mg Vial IV-PUSH 07/31/24 08:59 40 mg DAILY KACI Administration Sennosides 8.8 mg 08/04/23 09:00 08/06/23 08:42 Sennosides Syrup 8.8 Mg/5 Ml Udc PO 08/03/24 08:59 8.8 mg BID KACI Administration Sodium Chloride 10 ml 08/01/23 08:07 08/06/23 08:43 Sodium Chloride 0.9 % 10 Ml Vial.Pf INJECTION 07/31/24 08:06 10 ml PRN PRN Administration Dilution Sodium Chloride 10 ml 08/01/23 08:07 08/01/23 08:49 Sodium Chloride 0.9 % 10 Ml Syringe IV-PUSH 07/31/24 08:06 10 ml PRN PRN Administration Flush Sodium Chloride 0 ml 08/01/23 10:32 08/05/23 17:19 Sodium Chloride 0.9 % 10 Ml Syringe IV-PUSH 07/31/24 10:31 10 ml PRN PRN Administration Flush Sodium Chloride 0 ml 08/02/23 09:41 08/04/23 16:49 Sodium Chloride 0.9 % 10 Ml Syringe IV-PUSH 08/01/24 09:40 40 ml PRN PRN Administration Flush A&P - Hospitalist Assessment/Plan (1) Acute hypoxic respiratory failure: (2) Acute pulmonary edema: (3) ESRD (end stage renal disease): (4) Leukocytosis: (5) T2DM (type 2 diabetes mellitus): (6) Hyperlipemia: (7) HTN (hypertension): (8) PAD (peripheral artery disease): (9) SONYA (acute kidney injury): Plan ASSESSMENT AND PLAN: Acute hypoxic respiratory failure Acute influenza A Seen and examined Still still on mechanical vent Sedated by Versed and Precedex Saturation 95% No fever Leukocytosis 12.5 Dialysis today Plan for weaning trial today ICU team is following Severe progressive anemia, most likely related to chronic kidney disease and chronic disease with his recent diabetic foot. Hemoglobin and hematocrit are stable 9.3/27.5 Recent severe issues with diabetic foot with kim osteomyelitis, visible bone, requiring a transmetatarsal amputation the previous hospital stay on 07/18/2023. Recent MSSA osteomyelitis of the left forefoot, appears to be treated successfully with a trans metatarsal amputation. No fever No leukocytosis Continue meropenem Diabetes mellitus type 2, described as brittle, with recent hemoglobin A1c uncontrolled at 8.1. Accu-Check every 6 hours Insulin sliding scale History of peripheral arterial disease with angioplasty to the left lower extremity in the past. History of hypertension: Controlled History of dyslipidemia. n.p.o. 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 DVT prophylaxis heparin Documented By: Vania Chacon MD 08/06/23 0955 Signed By: <Electronically signed by Vania Chacon MD> 08/06/23 1000 [facility] Work Phone: 1(804) 607-501703-12-2024 Progress note Author Mehul Garrett [facility] August 05, 2023 2:24pm Note Date/Time August 05, 2023 8:2 5am [facility] [address] [place] [address] Pulmonology Progress Note Signed Patient: Sudeep Diego JR MR#: [id number] : 1950 Acct:[id number] Age/Sex: 72 / M Adm Date: 4 Loc: Room: [address] [place] [address] Type: ADM IN Attending Dr: Vania Chacon MD Copies to: ~ Date of Service: 08/05/2023 Subjective Subjective Narrative: Patient remains intubated and sedated though with increased agitation with conversion from dexmedetomidine from high-dose fentanyl and propofol. There were no reported issues overnight per nursing staff. Exam Physical Exam Vital Signs: Temp Pulse Resp BP Pulse Ox O2 Del Method FiO2 98.3 F 93 14 149/71 H 96 Mechanical Ventilation 35 08/05/23 08:00 08/05/23 08:00 08/05/23 08:00 08/05/23 08:00 08/05/23 08:00 08/05/23 08:00 08/05/23 07:00 Const Nutritional Appearance: overweight Orientation: not alert and not awake HEENT Head: normal to inspection, normocephalic and atraumatic Ears: external ears normal Nose: external nose normal Face and sinus: normal facial exam Mouth: other (8.0 mm ID ET tube) Eyes Eyelids: eyelids normal Neck Neck: normal visual inspection and no lymphadenopathy Chest Chest palpation & inspection: normal inspection of the chest Resp Auscultation: clear to auscultation bilaterally, no rales, no rhonchi and no wheezes Cardio Rate: regular rate Rhythm: regular rhythm Heart Sounds: S1 normal, S2 normal, no gallops, no murmurs and no rubs GI Inspection: normal to inspection Palpation: soft and nontender Auscultation: hypoactive bowel sounds Rectal Exam: deferred General: deferred Skin General: no rashes or lesions noted (warm and dry) Extrem General: no pedal edema and amputation noted Transmetatarsal: left Objective Intake and Output I&O - Last 24 Hours: Intake & Output 08/04/23 08/05/23 08/05/23 23:59 07:59 15:59 Intake Total 1170 / 2550 500 / 500 Output Total 3489 / 3789 37 37 Balance -2319 / -1239 463 / 463 Weight 213 lb 6.519 oz Labs 08/05/23 04:37 08/05/23 04:37 Microbiology Micro: Microbiology 3 08/01/23 07:33 Blood Culture - Preliminary Blood - Right Antecubital No Growth 4 Days 08/01/23 07:40 Blood Culture - Preliminary Blood - Left Hand No Growth 4 Days 08/02/23 03:30 Urine Culture - Final Urine - Santana Catheter No Growth 2 Days Imaging and Cardiology Chest x-ray: Status: image reviewed by me Additional comments: Date of Service: 08/05/23 XR/XR chest 1V portable: on vent PORTABLE AP SEMIERECT CHEST 0505 hours CLINICAL HISTORY: Respiratory distress on ventilator COMPARISON: 08/04/2023 Tubes and lines are unchanged from the prior. There are continued bilateral infiltrative changes, right side slightly worse than left. Pleural effusion is not excluded without a lateral view. No pneumothorax is seen. The cardiac and mediastinal contours are similar. There is endplate spurring. XR/XR chest 1V portable IMPRESSION: CONTINUED BILATERAL PARENCHYMAL CHANGES. Additional Results Results Comments: 08/05/23 04:19 ABG pH 7.40 ABG pCO2 42.8 ABG pO2 75.9 L ABG HCO3 25.6 ABG Total CO2 26.9 ABG O2 Saturation 94.7 L ABG O2 Content 6.4 L ABG Base Excess 0.6 14//35/5 Assessment/Plan Assessment/Plan (1) Acute hypoxic respiratory failure: (2) Acute pulmonary edema: (3) ESRD (end stage renal disease): (4) T2DM (type 2 diabetes mellitus): (5) PAD (peripheral artery disease): Plan Hospital day #4, ventilator day #4 for patient with respiratory failure, influenza A, diabetes mellitus, end-stage renal disease, and peripheral vasculardisease. Patient's sputum reveals only Rajiv dubliniensis with urine and blood cultures negative. Patient's gas exchange is improved though with chest x-ray essentially stable with bilateral infiltrates despite aggressive volume removal per nephrology. Sputum revealed only rare growth of Rajiv dubliniensis. Given its relatively rare growth, I believe this is a contaminantthat does not require treatment. Vancomycin was discontinued with no evidence of MRSA. We will continue antibiotics for healthcare associated pathogens and continue with diuresis as nephrology permits as well as supportive care with theonly pathogen identified being the influenza A. We will hopefully see patient'smental status improved with discontinuation of propofol and fentanyl and will utilize as needed bolus midazolam and dexmedetomidine for comfort and sedation. Case was discussed with the patient's brother and sister. Documented By: Mehul Garrett MD 4 0821 Signed By: <Electronically signed by MD Mehul Garrett> 08/05/23 1424 [facility] Work Phone: [phone]) 518-667003-12-2024 Progress note Author Sanket Hammer [facility] August 05, 2023 1:55pm Note Date/Time August 05, 2023 1:5 5pm [facility] [address] [place] [address] Nephrology Progress Note Signed Patient: Sudeep Diego JR MR#: [id number] : 1950 Acct:[id number] Age/Sex: 72 / M Adm Date: 4 Loc: Room: [address] [place] [address] Type: ADM IN Attending Dr: Vania Chacon MD Copies to: ~ Date of Service: 08/05/2023 Subjective Subjective Narrative: Mr. Diego is a 72-year-old male with history of DM2, HTN, PAD and prostate cancer. Patient was recently started on hemodialysis during his admission in June 2023 for SONYA possibly related to ATN versus Staph aureus glomerulonephritis. 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 Creatinine has increased up to 5 mg/dL with no evidence of recovery. [facility]. Patient presented to [facility] from his nursing facility with severe shortness of breath requiring intubation. Chest x-ray showed bilateral pulmonary infiltrate with possible pulmonary edema. Subsequently the patient was transferred to [facility] and he continues to be on vent. Respiratory swab showed evidence of influenza A. Patient is currently being treated for healthcare associated pneumonia with vancomycin and meropenem. Troponin was found to be elevated up to 1700. Hemoglobin was only 6.5 g/dL in setting of infection. Cardiology evaluated the patient and no intervention is planned at this point at the patient most likely has type II demand decreased cardiac perfusion. Nephrology was consulted for ESRD and dialysis. Interval history: Patient is being seen and examined in the ICU. Follow-up stop today due to hightriglyceride level. Patient slightly agitated Patient remains ventilated. FiO2 35%. Continues to be on NG tube feeding Blood pressure is well-controlled. Continues to have Santana catheter with urine output 150 cc in 24 hours. Patient waited hemodialysis and well with 3.5 L fluid removal Cannot do review of system Exam Physical Exam Vital Signs: Temp Pulse Resp BP Pulse Ox O2 Del Method FiO2 98.3 F 73 19 138/68 96 Mechanical Ventilation 35 08/05/23 11:43 08/05/23 13:45 08/05/23 12:15 08/05/23 13:45 08/05/23 11:43 08/05/23 12:24 08/05/23 13:00 Narrative: General: Patient is slightly agitated. Opens his eyes but does not follow commands Head :atraumatic normocephalic Eyes: PERRLA. Neck: no JVD no bruit. Heart: S1-S2. RRR Respiratory: Equal air entry. No wheezing no crackles Abdomen: Soft, no distention Neurology: Sedated. Extremity. No cyanosis. No edema Skin: No skin rash Objective Intake and Output I&O: Intake & Output 08/02/23 08/03/23 08/04/23 08/05/23 22:59 23:59 23:59 23:59 Intake Total 2550 / 2550 650 / 650 Output Total 3789 / 3789 37 / 37 Balance -1239 / -1239 613 / 613 Weight 224 lb 10.417 oz 213 lb 6.519 oz Meds and Allergies Meds: Active Medications Acetaminophen (Acetaminophen 325 Mg Tablet) 650 mg PO Q6H PRN PRN Reason: Pain Stop: 07/31/24 14:12 Last Admin: 08/02/23 16:27 Dose: 650 mg Albuterol (Albuterol Hfa 200 Puff/18 Gm Inhaler) 6 puff VENT Q6HR KACI Stop: 07/31/24 11:59 Last Admin: 08/05/23 12:16 Dose: 6 puff Chlorhexidine Gluconate (Chlorhexidine Gluconate 0.12% 15 Ml Udc) 15 ml MUCOUS MEM BID KACI Stop: 07/31/24 08:59 Last Admin: 08/05/23 08:51 Dose: 15 ml Dextrose (Dextrose 50% In Water 25 Gm/50 Ml Syringe) 0 gm IV-PUSH PRN PRN PRN Reason: Hypoglycemia Stop: 07/31/24 08:04 Docusate Sodium (Docusate Liquid 100 Mg/10 Ml Udc) 100 mg PO BID KACI Stop: 08/03/24 08:59 Last Admin: 08/05/23 08:52 Dose: 100 mg Fentanyl Citrate (Fentanyl/Pf 100 Mcg/2 Ml Vial) 50 mcg IV-PUSH Q2H PRN PRN Reason: Pain Scale 4 - 7 Last Admin: 08/03/23 21:01 Dose: 50 mcg Glucose (Dextrose 40% Gel 15 Gm Tube) 0 gm PO PRN PRN PRN Reason: Hypoglycemia Stop: 07/31/24 08:04 Heparin Sodium (Porcine) (Heparin 10,000 Unit/10 Ml Vial) 2,000 unit IV PRN PRN PRN Reason: Dialysis Stop: 07/31/24 10:31 Last Admin: 08/04/23 18:04 Dose: 2,000 unit Heparin Sodium (Porcine) (Heparin 10,000 Unit/10 Ml Vial) 500 unit IV PRN PRN PRN Reason: Dialysis Stop: 07/31/24 10:31 Last Admin: 08/04/23 18:05 Dose: 500 unit Heparin Sodium (Porcine) (Heparin 10,000 Unit/10 Ml Vial) 2,000 unit IV PRN PRN PRN Reason: Dialysis Stop: 08/01/24 09:40 Last Admin: 08/02/23 22:59 Dose: 2,000 unit Heparin Sodium (Porcine) (Heparin 5,000 Unit/Ml Vial) 5,000 unit SUBCUT Q8HR KACI Stop: 08/01/24 13:59 Last Admin: 08/05/23 06:33 Dose: 5,000 unit Sodium Chloride (0.9% Sodium Chloride 1,000 Ml) 1,000 mls @ 0 mls/hr MISCELLANE.Q0M PRN PRN Reason: Dialysis Stop: 07/31/24 10:31 Last Infusion: 08/04/23 18:05 Dose: Infused Meropenem (Merrem) 0.5 gm in 100 mls @ 33.3 mls/hr IV Q24H KACI Stop: 08/07/23 17:01 Last Infusion: 08/04/23 17:49 Dose: Infused Sodium Chloride (0.9% Sodium Chloride 1,000 Ml) 1,000 mls @ 0 mls/hr MISCELLANE.Q0M PRN PRN Reason: Dialysis Stop: 08/01/24 09:40 Last Infusion: 08/02/23 23:01 Dose: Infused Fentanyl (Fentanyl 1,000 Mcg/100 Ml D5w) 1,000 mcg in 100 mls @ 2.5 mls/hr IV .Q24H [facility]; Protocol Last Titration: 08/05/23 13:24 Dose: 25 mcg/hr, 2.5 mls/hr Dexmedetomidine HCl 400 mcg/ (Dextrose) 100 mls @ 4.84 mls/hr IV .[id number] [facility]; Protocol Stop: 08/04/24 10:14 Last Admin: 08/05/23 13:45 Dose: 1.4 mcg/kg/hr, 33.88 mls/hr Insulin Aspart (Insulin Aspart 300 Units/3 Ml Insuln.Pen) 0 units SUBCUT Q6HR [facility]; Protocol Stop: 07/31/24 11:59 Last Admin: 08/05/23 11:47 Dose: 2 units Magnesium Hydroxide (Magnesium Hydroxide Susp 30 Ml Udc) 30 ml PO DAILY PRN PRN Reason: Constipation Stop: 08/02/24 22:13 Midazolam HCl (Midazolam/Pf 2 Mg/2 Ml Vial) 4 mg IV-PUSH Q3H PRN PRN Reason: Agitation Stop: 02/01/24 11:11 Last Admin: 08/05/23 11:16 Dose: 4 mg Pantoprazole Sodium (Pantoprazole 40 Mg Vial) 40 mg IV-PUSH DAILY [facility] Stop: 07/31/24 08:59 Last Admin: 08/05/23 08:52 Dose: 40 mg Sennosides (Sennosides Syrup 8.8 Mg/5 Ml Udc) 8.8 mg PO BID [facility] Stop: 08/03/24 08:59 Last Admin: 08/05/23 08:51 Dose: 8.8 mg Sodium Chloride (Sodium Chloride 0.9 % 10 Ml Vial.Pf) 10 ml INJECTION PRN PRN PRN Reason: Dilution Stop: 07/31/24 08:06 Last Admin: 08/05/23 08:53 Dose: 10 ml Sodium Chloride (Sodium Chloride 0.9 % 10 Ml Syringe) 10 ml IV-PUSH PRN PRN PRN Reason: Flush Stop: 07/31/24 08:06 Last Admin: 08/01/23 08:49 Dose: 10 ml Sodium Chloride (Sodium Chloride 0.9 % 10 Ml Syringe) 0 ml IV-PUSH PRN PRN PRN Reason: Flush Stop: 07/31/24 10:31 Last Admin: 08/05/23 11:17 Dose: 10 ml Sodium Chloride (Sodium Chloride 0.9 % 10 Ml Syringe) 0 ml IV-PUSH PRN PRN PRN Reason: Flush Stop: 08/01/24 09:40 Last Admin: 08/04/23 16:49 Dose: 40 ml Allergies cefepime Allergy (Unknown, Verified 07/10/23 18:46) Hives lisinopril Allergy (Unknown, Verified 07/10/23 18:46) Swelling of Lip/Tongue/Throat, SWELLING metformin Allergy (Unknown, Verified 07/10/23 18:46) Back Pain, KIDNEY PAIN Results - Nephrology Labs 08/05/23 04:37 08/05/23 04:37 Labs: 08/05/23 04:37 BUN 36 H Creatinine 2.90 H D Radiology Impressions Impressions - last 24 hours: Impressions Chest X-Ray 08/05/23 05:00 IMPRESSION: CONTINUED BILATERAL PARENCHYMAL CHANGES. Impression dictated by: Pallavi Hernandez M.D.08/05/2023 7:17 AM Dictation Location: [place] [address] Any impression(s) listed above is documentation that was entered by the reading physician into a diagnostic report(s) for Sudeep Diego JR. I have reviewed the report(s) and am incorporating any findings in the treatment plan of this patient where applicable. A&P - Nephrology Assessment/Plan (1) SONYA (acute kidney injury): Assessment/Problem Details: Patient developed SONYA during his previous admission on June 2023 with left foot infection and staph bacteremia with no evidence of recovery currently on dialysis. Baseline creatinine was 1.1 mg/dL. Patient gets dialysis on MWF schedule (2) Acute pulmonary edema: Assessment/Problem Details: Patient presents with shortness of breath and respiratory failure. Chest x-ray showed pulmonary congestion with evidence of bilateral infiltrate. 2D echo showed dilated IVC with abnormal collapsibility suggestive of volume overload (3) Acute hypoxic respiratory failure: Assessment/Problem Details: Patient has bilateral infiltrate on chest x-ray, respiratory swab was positive for influenza A. Patient is currently getting treatment for healthcare associated pneumonia as well since he has recent hospitalization (4) T2DM (type 2 diabetes mellitus): (5) Elevated troponin level not due to acute coronary syndrome: (6) Anemia of renal disease: Assessment/Problem Details: He has anemia in the setting of SONYA with superimposed infection. Patient has elevated ferritin and low iron saturation in setting of infection. Plan * No need for hemodialysis session today. Next hemodialysis will be tomorrow no recovery of kidney function * * ANCA, SUSANA and anti-GBM antibodies to rule out vasculitis * Serum sodium level has improved from 127 mmol to 130 mmol with 3.5 L ultrafiltration. Please keep output more than input/ * Hemoglobin has markedly improved after transfusion and ultrafiltration. Patient already had 2 units of packed RBCs. Hemoglobin remained stable around 10 g deciliter. Will continue to monitor H&H and transfuse as needed * Patient continues to be on meropenem 0.5 g every 24 hours. Blood culture showed no growth Sputum endotracheal culture showed Rajiv * Will monitor daily intake, output and renal panel to adjust medications and dialysis prescription as indicated. Documented By: Sanket Hammer MD 08/05/23 1351 Signed By: <Electronically signed by Sanket Hammer MD> 08/05/23 1355 [facility] Work Phone: 1(200) 492-554103-12-2024 Progress note Author Vania Chacon [facility] August 05, 2023 11:03am Note Date/Time August 05, 2023 11: 03am [facility] [address] [place] [address] Hospitalist Progress Note Signed Patient: Sudeep Diego JR MR#: [id number] : 1950 Acct:[id number] Age/Sex: 72 / M Adm Date: 4 Loc: Room: 3H7128-1 Type: ADM IN Attending Dr: Vania Chacon MD Copies to: ~ Date of Service: 08/05/2023 Subjective Subjective Narrative: Seen and examined On mechanical ventilation Sedated NO fever Exam Physical Exam Vital Signs: Temp Pulse Resp BP Pulse Ox O2 Del Method FiO2 98.3 F 93 18 166/79 H 98 Mechanical Ventilation 35 08/05/23 08:00 08/05/23 10:52 08/05/23 10:00 08/05/23 10:52 08/05/23 10:00 08/05/23 10:00 08/05/23 10:00 Narrative: General sedated and intubated HEENT PERRLA Neck supple no JVD no carotid bruit CVS S1-S2 regular rate and rhythm no murmur no gallop Chest bilateral wheezing Abdomen soft bowel sounds normoactive no rebound no guarding Extremities no stenosis no clubbing no edema Musculoskeletal exam normal no joint effusion Neurologic sedated and intubated Objective Lab Results 08/05/23 04:37 08/05/23 04:37 Microbiology Results Microbiology 08/01/23 07:33 Blood - Right Antecubital Blood Culture - Preliminary No Growth 4 Days 08/01/23 07:40 Blood - Left Hand Blood Culture - Preliminary No Growth 4 Days 08/02/23 03:30 Urine - Santana Catheter Urine Culture - Final No Growth 2 Days ABG Interpretation ABG results: 08/05/23 04:19 ABG pH 7.40 ABG pCO2 42.8 ABG pO2 75.9 L ABG HCO3 25.6 ABG Total CO2 26.9 ABG O2 Saturation 94.7 L ABG O2 Content 6.4 L ABG Base Excess 0.6 Meds Allergies and Active Meds Allergies cefepime Allergy (Unknown, Verified 07/10/23 18:46) Hives lisinopril Allergy (Unknown, Verified 07/10/23 18:46) Swelling of Lip/Tongue/Throat, SWELLING metformin Allergy (Unknown, Verified 07/10/23 18:46) Back Pain, KIDNEY PAIN Active Meds: Active Medications Generic Name Dose Route Start Last Admin Trade Name Freq PRN Reason Stop Dose Admin Acetaminophen 650 mg 08/01/23 14:13 08/02/23 16:27 Acetaminophen 325 Mg Tablet PO 07/31/24 14:12 650 mg Q6H PRN Administration Pain Albuterol 6 puff 08/01/23 12:00 08/05/23 10:03 Albuterol Hfa 200 Puff/18 Gm Inhaler VENT 07/31/24 11:59 Not Given Q6HR KACI Chlorhexidine Gluconate 15 ml 08/01/23 09:00 08/05/23 08:51 Chlorhexidine Gluconate 0.12% 15 Ml Udc MUCOUS MEM 07/31/24 08:59 15 ml BID KACI Administration Dextrose 0 gm 08/01/23 08:05 Dextrose 50% In Water 25 Gm/50 Ml Syringe IV-PUSH 07/31/24 08:04 PRN PRN Hypoglycemia Docusate Sodium 100 mg 08/04/23 09:00 08/05/23 08:52 Docusate Liquid 100 Mg/10 Ml Udc PO 08/03/24 08:59 100 mg BID KACI Administration Fentanyl Citrate 50 mcg 08/02/23 09:44 08/03/23 21:01 Fentanyl/Pf 100 Mcg/2 Ml Vial IV-PUSH 50 mcg Q2H PRN Administration Pain Scale 4 - 7 Glucose 0 gm 08/01/23 08:05 Dextrose 40% Gel 15 Gm Tube PO 07/31/24 08:04 PRN PRN Hypoglycemia Heparin Sodium (Porcine) 2,000 unit 08/01/23 10:32 08/04/23 18:04 Heparin 10,000 Unit/10 Ml Vial IV 07/31/24 10:31 2,000 unit PRN PRN Administration Dialysis Heparin Sodium (Porcine) 500 unit 08/01/23 10:32 08/04/23 18:05 Heparin 10,000 Unit/10 Ml Vial IV 07/31/24 10:31 500 unit PRN PRN Administration Dialysis Heparin Sodium (Porcine) 2,000 unit 08/02/23 09:41 08/02/23 22:59 Heparin 10,000 Unit/10 Ml Vial IV 08/01/24 09:40 2,000 unit PRN PRN Administration Dialysis Heparin Sodium (Porcine) 5,000 unit 08/02/23 14:00 08/05/23 06:33 Heparin 5,000 Unit/Ml Vial SUBCUT 08/01/24 13:59 5,000 unit Q8HR KACI Administration Sodium Chloride 1,000 mls @ 0 mls/hr 08/01/23 10:32 08/04/23 18:05 0.9% Sodium Chloride 1,000 Ml MISCELLANE 07/31/24 10:31 Infused .Q0M PRN Infusion Dialysis As Directed Meropenem 0.5 gm in 100 mls @ 33.3 mls/hr 08/01/23 14:00 08/04/23 17:49 Merrem IV 08/07/23 17:01 Infused Q24H [facility] Infusion Sodium Chloride 1,000 mls @ 0 mls/hr 08/02/23 09:41 08/02/23 23:01 0.9% Sodium Chloride 1,000 Ml MISCELLANE 08/01/24 09:40 Infused .Q0M PRN Infusion Dialysis As Directed Fentanyl 1,000 mcg in 100 mls @ 2.5 mls/hr 08/03/23 22:30 08/05/23 10:39 Fentanyl 1,000 Mcg/100 Ml D5w IV 75 mcg/hr .Q24H [facility] 7.5 mls/hr Titration Protocol 25 MCG/HR Dexmedetomidine HCl 400 mcg/ 100 mls @ 4.84 mls/hr 08/05/23 10:15 08/05/23 10:51 Dextrose IV 08/04/24 10:14 1.2 mcg/kg/hr .[id number] [facility] 29.04 mls/hr Administration Protocol 0.2 MCG/KG/HR Insulin Aspart 0 units 08/01/23 12:00 08/05/23 06:34 Insulin Aspart 300 Units/3 Ml Insuln.Pen SUBCUT 07/31/24 11:59 Not Given Q6HR [facility]ACI Protocol Magnesium Hydroxide 30 ml 08/03/23 22:14 Magnesium Hydroxide Susp 30 Ml Udc PO 08/02/24 22:13 DAILY PRN Constipation Pantoprazole Sodium 40 mg 08/01/23 09:00 08/05/23 08:52 Pantoprazole 40 Mg Vial IV-PUSH 07/31/24 08:59 40 mg DAILY KACI Administration Sennosides 8.8 mg 08/04/23 09:00 08/05/23 08:51 Sennosides Syrup 8.8 Mg/5 Ml Udc PO 08/03/24 08:59 8.8 mg BID KACI Administration Sodium Chloride 10 ml 08/01/23 08:07 08/05/23 08:53 Sodium Chloride 0.9 % 10 Ml Vial.Pf INJECTION 07/31/24 08:06 10 ml PRN PRN Administration Dilution Sodium Chloride 10 ml 08/01/23 08:07 08/01/23 08:49 Sodium Chloride 0.9 % 10 Ml Syringe IV-PUSH 07/31/24 08:06 10 ml PRN PRN Administration Flush Sodium Chloride 0 ml 08/01/23 10:32 08/04/23 18:05 Sodium Chloride 0.9 % 10 Ml Syringe IV-PUSH 07/31/24 10:31 40 ml PRN PRN Administration Flush Sodium Chloride 0 ml 08/02/23 09:41 08/04/23 16:49 Sodium Chloride 0.9 % 10 Ml Syringe IV-PUSH 08/01/24 09:40 40 ml PRN PRN Administration Flush A&P - Hospitalist Assessment/Plan (1) Acute hypoxic respiratory failure: (2) Acute pulmonary edema: (3) ESRD (end stage renal disease): (4) Leukocytosis: (5) T2DM (type 2 diabetes mellitus): (6) Hyperlipemia: (7) HTN (hypertension): (8) PAD (peripheral artery disease): (9) SONYA (acute kidney injury): Plan ASSESSMENT AND PLAN: Acute hypoxic respiratory failure Acute influenza A Seen and examined Still on clinical ventilation with FiO2 35 Now sedated on fentanyl Of propofol due to elevated TG Now on Precedex Had dialysis yesterday and 3 L was removed Plan for weaning trial today ICU team is following Severe progressive anemia, most likely related to chronic kidney disease and chronic disease with his recent diabetic foot. Hemoglobin and hematocrit are stable 10.3/29.4 Recent severe issues with diabetic foot with kim osteomyelitis, visible bone, requiring a transmetatarsal amputation the previous hospital stay on 07/18/2023. Recent MSSA osteomyelitis of the left forefoot, appears to be treated successfully with a trans metatarsal amputation. No fever No leukocytosis Continue meropenem Diabetes mellitus type 2, described as brittle, with recent hemoglobin A1c uncontrolled at 8.1. Accu-Check every 6 hours Insulin sliding scale History of peripheral arterial disease with angioplasty to the left lower extremity in the past. History of hypertension: Controlled History of dyslipidemia. n.p.o. 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 DVT prophylaxis heparin Documented By: Vania Chacon MD 08/05/231101 Signed By: <Electronically signed by Vania Chacon MD> 08/05/23 1103 [facility] Work Phone: 1(443) 911-932403-11-2024 Progress note Author Mehul Garrett [facility] August 04, 2023 1:09pm Note Date/Time August 04, 2023 8:4 5am [facility] [address] [place] [address] Pulmonology Progress Note Signed Patient: Sudeep Diego JR MR#: [id number] : 1950 Acct:[id number] Age/Sex: 72 / M Adm Date: 4 Loc: Room: [address] [place] [address] Type: ADM IN Attending Dr: Vania Chacon MD Copies to: ~ Date of Service: 08/04/2023 Subjective Subjective Narrative: Patient is intubated and sedated without reported issues overnight per nursing staff. Exam Physical Exam Vital Signs: Temp Pulse Resp BP Pulse Ox O2 Del Method FiO2 99.1 F H 94 16 159/82 H 94 L Mechanical Ventilation 35 08/04/23 06:00 08/04/23 08:13 08/04/23 06:00 08/04/23 08:13 08/04/23 06:00 08/04/23 06:00 08/04/23 06:00 Const Nutritional Appearance: overweight Orientation: not alert and not awake HEENT Head: normal to inspection, normocephalic and atraumatic Ears: external ears normal Nose: external nose normal Face and sinus: normal facial exam Mouth: other (8.0 mm ID ET tube) Eyes Eyelids: eyelids normal Neck Neck: normal visual inspection and no lymphadenopathy Chest Chest palpation & inspection: normal inspection of the chest Resp Auscultation: clear to auscultation bilaterally, no rales, no rhonchi and no wheezes Cardio Rate: regular rate Rhythm: regular rhythm Heart Sounds: S1 normal, S2 normal, no gallops, no murmurs and no rubs GI Inspection: normal to inspection Palpation: soft and nontender Auscultation: hypoactive bowel sounds Rectal Exam: deferred General: deferred Skin General: no rashes or lesions noted (warm and dry) Extrem General: no pedal edema and amputation noted Transmetatarsal: left Objective Intake and Output I&O - Last 24 Hours: Intake & Output 08/03/23 08/04/23 08/04/23 23:59 07:59 15:59 Intake Total 400 / 880 420 / 520 100 / 520 Output Total 100 / 3920 200 / 200 Balance 300 / -3040 220 / 320 100 / 320 Weight 224 lb 10.417 oz Labs 08/04/23 04:46 08/04/23 07:34 Microbiology Micro: Microbiology 3 08/01/23 07:33 Blood Culture - Preliminary Blood - Right Antecubital No Growth 3 Days 08/01/23 07:40 Blood Culture - Preliminary Blood - Left Hand No Growth 3 Days 08/01/23 09:00 Aerobic Culture - Final Sputum - Endotrachael Rajiv dubliniensis Gram Stain - Final 08/02/23 03:30 Urine Culture - Preliminary Urine - Santana Catheter No Growth 1 Day Imaging and Cardiology Chest x-ray: Status: image reviewed by me Additional comments: Date of Service: 08/04/23 XR/XR chest 1V portable: on vent PORTABLE AP SEMIERECT CHEST 0514 hours CLINICAL HISTORY: Respiratory distress on ventilator COMPARISON: 03/14/2024 Tubes and lines are similar to the prior. The cardiac and mediastinal contours are similar. There are continued bilateral airspace opacities. Pleural effusion is not excluded without a lateral view. No pneumothorax is identified. There is endplate spurring at the spine. XR/XR chest 1V portable IMPRESSION: PERSISTENT BILATERAL PARENCHYMAL CHANGES Additional Results Results Comments: 08/04/23 05:09 ABG pH 7.37 ABG pCO2 36.5 ABG pO2 66.4 L ABG HCO3 20.7 L ABG Total CO2 21.8 L ABG O2 Saturation 92.1 L ABG O2 Content 6.0 L ABG Base Excess -4.0 L 14/500/35/5 Assessment/Plan Assessment/Plan (1) Acute hypoxic respiratory failure: (2) Acute pulmonary edema: (3) ESRD (end stage renal disease): (4) T2DM (type 2 diabetes mellitus): (5) PAD (peripheral artery disease): Plan Hospital day #3, ventilator day #3 for patient with respiratory failure, influenza A, diabetes mellitus, end-stage renal disease, and peripheral vasculardisease. Patient's sputum reveals only Rajiv dubliniensis with urine and blood cultures negative. We will discontinue vancomycin and continue meropenem. Case was discussed with nephrology who will more aggressively try to remove fluid today. Continue supportive care with patient on tube feeds as well as DVTand stress ulcer prophylaxis. Patient had failed weaning yesterday and continues with chest x-ray with bilateral infiltrates and would like to see improvement in chest x-ray and gas exchange before retrying weaning. Continue supportive care. Documented By: Mehul Garrett MD 4 0840 Signed By: <Electronically signed by MD Mehul Garrett> 08/04/23 1106 [facility] Work Phone: 1(508) 547-586303-11-2024 Progress note Author Sanket Hammer [facility] August 04, 2023 12:09pm Note Date/Time August 04, 2023 12: 08pm [facility] [address] [place] [address] Nephrology Progress Note Signed Patient: Sudeep Diego JR MR#: [id number] : 1950 Acct:[id number] Age/Sex: 72 / M Adm Date: 4 Loc: Room: [address] [place] [address] Type: ADM IN Attending Dr: Vania Chacon MD Copies to: ~ Date of Service: 08/04/2023 Subjective Subjective Narrative: Mr. Diego is a 72-year-old male with history of DM2, HTN, PAD and prostate cancer. Patient was recently started on hemodialysis during his admission in June 2023 for SONYA possibly related to ATN versus Staph aureus glomerulonephritis. 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 Creatinine has increased up to 5 mg/dL with no evidence of recovery. [facility]. Patient presented to [facility] from his nursing facility with severe shortness of breath requiring intubation. Chest x-ray showed bilateral pulmonary infiltrate with possible pulmonary edema. Subsequently the patient was transferred to [facility] and he continues to be on vent. Respiratory swab showed evidence of influenza A. Patient is currently being treated for healthcare associated pneumonia with vancomycin and meropenem. Troponin was found to be elevated up to 1700. Hemoglobin was only 6.5 g/dL in setting of infection. Cardiology evaluated the patient and no intervention is planned at this point at the patient most likely has type II demand decreased cardiac perfusion. Nephrology was consulted for ESRD and dialysis. Interval history: Patient is being seen and examined in the ICU. Patient has Santana catheter with minimal urine output. Patient failed extubation attempt yesterday is to be sedated. Remains on vent support. Systolic blood pressure has been better controlled butwith some readings of 160s Exam Physical Exam Vital Signs: Temp Pulse Resp BP Pulse Ox O2 Del Method FiO2 99.1 F H 100 16 166/81 H 94 L Mechanical Ventilation 35 08/04/23 06:00 08/04/23 11:13 08/04/23 09:20 08/04/23 11:13 08/04/23 06:00 08/04/23 08:30 08/04/23 10:00 Narrative: General: Patient intubated and sedated Head :atraumatic normocephalic Eyes: PERRLA. Neck: no JVD no bruit. Heart: S1-S2. RRR Respiratory: Equal air entry. Abdomen: Soft, no distention Neurology: Sedated. Extremity. No cyanosis. No edema Skin: No skin rash Objective Intake and Output I&O: Intake & Output 08/01/23 08/02/23 08/03/23 08/04/23 22:59 22:59 23:59 23:59 Intake Total 720 / 720 Output Total 200 / 200 Balance 520 / 520 Weight 224 lb 10.417 oz Meds and Allergies Meds: Active Medications Acetaminophen (Acetaminophen 325 Mg Tablet) 650 mg PO Q6H PRN PRN Reason: Pain Stop: 07/31/24 14:12 Last Admin: 08/02/23 16:27 Dose: 650 mg Albuterol (Albuterol Hfa 200 Puff/18 Gm Inhaler) 6 puff VENT Q6HR [facility] Stop: 07/31/24 11:59 Last Admin: 08/04/23 05:35 Dose: 6 puff Chlorhexidine Gluconate (Chlorhexidine Gluconate 0.12% 15 Ml Udc) 15 ml MUCOUS MEM BID KACI Stop: 07/31/24 08:59 Last Admin: 08/04/23 08:46 Dose: 15 ml Dextrose (Dextrose 50% In Water 25 Gm/50 Ml Syringe) 0 gm IV-PUSH PRN PRN PRN Reason: Hypoglycemia Stop: 07/31/24 08:04 Docusate Sodium (Docusate Liquid 100 Mg/10 Ml Udc) 100 mg PO BID KACI Stop: 08/03/24 08:59 Last Admin: 08/04/23 08:46 Dose: Not Given Fentanyl Citrate (Fentanyl/Pf 100 Mcg/2 Ml Vial) 50 mcg IV-PUSH Q2H PRN PRN Reason: Pain Scale 4 - 7 Last Admin: 08/03/23 21:01 Dose: 50 mcg Glucose (Dextrose 40% Gel 15 Gm Tube) 0 gm PO PRN PRN PRN Reason: Hypoglycemia Stop: 07/31/24 08:04 Heparin Sodium (Porcine) (Heparin 10,000 Unit/10 Ml Vial) 2,000 unit IV PRN PRN PRN Reason: Dialysis Stop: 07/31/24 10:31 Last Admin: 08/01/23 15:56 Dose: 2,000 unit Heparin Sodium (Porcine) (Heparin 10,000 Unit/10 Ml Vial) 500 unit IV PRN PRN PRN Reason: Dialysis Stop: 07/31/24 10:31 Last Admin: 08/01/23 15:56 Dose: 500 unit Heparin Sodium (Porcine) (Heparin 10,000 Unit/10 Ml Vial) 2,000 unit IV PRN PRN PRN Reason: Dialysis Stop: 08/01/24 09:40 Last Admin: 08/02/23 22:59 Dose: 2,000 unit Heparin Sodium (Porcine) (Heparin 5,000 Unit/Ml Vial) 5,000 unit SUBCUT Q8HR [facility] Stop: 08/01/24 13:59 Last Admin: 08/04/23 06:22 Dose: 5,000 unit Propofol (Diprivan) 1,000 mg in 100 mls @ 12.492 mls/hr IV .Q8H1M KACI; Protocol Stop: 07/31/24 08:14 Last Admin: 08/04/23 11:13 Dose: 50 mcg/kg/min, 31.23 mls/hr Sodium Chloride (0.9% Sodium Chloride 1,000 Ml) 1,000 mls @ 0 mls/hr MISCELLANE.Q0M PRN PRN Reason: Dialysis Stop: 07/31/24 10:31 Last Infusion: 08/01/23 15:59 Dose: Infused Meropenem (Merrem) 0.5 gm in 100 mls @ 33.3 mls/hr IV Q24H [facility] Stop: 08/07/23 17:01 Last Admin: 08/03/23 14:58 Dose: 33.3 mls/hr Sodium Chloride (0.9% Sodium Chloride 1,000 Ml) 1,000 mls @ 0 mls/hr MISCELLANE.Q0M PRN PRN Reason: Dialysis Stop: 08/01/24 09:40 Last Infusion: 08/02/23 23:01 Dose: Infused Fentanyl (Fentanyl 1,000 Mcg/100 Ml D5w) 1,000 mcg in 100 mls @ 2.5 mls/hr IV .Q24H [facility]; Protocol Last Titration: 08/04/23 10:19 Dose: 100 mcg/hr, 10 mls/hr Insulin Aspart (Insulin Aspart 300 Units/3 Ml Insuln.Pen) 0 units SUBCUT Q6HR [facility]; Protocol Stop: 07/31/24 11:59 Last Admin: 08/04/23 11:59 Dose: Not Given Magnesium Hydroxide (Magnesium Hydroxide Susp 30 Ml Udc) 30 ml PO DAILY PRN PRN Reason: Constipation Stop: 08/02/24 22:13 Pantoprazole Sodium (Pantoprazole 40 Mg Vial) 40 mg IV-PUSH DAILY [facility] Stop: 07/31/24 08:59 Last Admin: 08/04/23 08:46 Dose: 40 mg Propofol (Propofol - Infusion Bolus 1,000 Mg/100 Ml Vial) 0 mg IV PROTOCOL PRN PRN Reason: Bolus Documentation Stop: 07/31/24 08:11 Last Admin: 08/02/23 04:45 Dose: 20 mg Sennosides (Sennosides Syrup 8.8 Mg/5 Ml Udc) 8.8 mg PO BID KACI Stop: 08/03/24 08:59 Last Admin: 08/04/23 08:46 Dose: Not Given Sodium Chloride (Sodium Chloride 0.9 % 10 Ml Vial.Pf) 10 ml INJECTION PRN PRN PRN Reason: Dilution Stop: 07/31/24 08:06 Last Admin: 08/04/23 08:46 Dose: 10 ml Sodium Chloride (Sodium Chloride 0.9 % 10 Ml Syringe) 10 ml IV-PUSH PRN PRN PRN Reason: Flush Stop: 07/31/24 08:06 Last Admin: 08/01/23 08:49 Dose: 10 ml Sodium Chloride (Sodium Chloride 0.9 % 10 Ml Syringe) 0 ml IV-PUSH PRN PRN PRN Reason: Flush Stop: 07/31/24 10:31 Last Admin: 08/01/23 15:57 Dose: 40 ml Sodium Chloride (Sodium Chloride 0.9 % 10 Ml Syringe) 0 ml IV-PUSH PRN PRN PRN Reason: Flush Stop: 08/01/24 09:40 Last Admin: 08/02/23 22:58 Dose: 40 ml Allergies cefepime Allergy (Unknown, Verified 07/10/23 18:46) Hives lisinopril Allergy (Unknown, Verified 07/10/23 18:46) Swelling of Lip/Tongue/Throat, SWELLING metformin Allergy (Unknown, Verified 07/10/23 18:46) Back Pain, KIDNEY PAIN Results - Nephrology Labs 08/04/23 04:46 08/04/23 07:34 Labs: 08/04/23 04:46 BUN 51 H Creatinine 3.43 H Radiology Impressions Impressions - last 24 hours: Impressions Chest X-Ray 08/04/23 05:00 IMPRESSION: PERSISTENT BILATERAL PARENCHYMAL CHANGES Impression dictated by: Pallavi Hernandez M.D.08/04/2023 7:03 AM Dictation Location: [place] [address] Any impression(s) listed above is documentation that was entered by the reading physician into a diagnostic report(s) for Sudeep Diego JR. I have reviewed the report(s) and am incorporating any findings in the treatment plan of this patient where applicable. A&P - Nephrology Assessment/Plan (1) SONYA (acute kidney injury): Assessment/Problem Details: Patient developed SONYA during his previous admission on June 2023 with left foot infection and staph bacteremia with no evidence of recovery currently on dialysis. Baseline creatinine was 1.1 mg/dL. Patient gets dialysis on [facility] schedule (2) Acute pulmonary edema: Assessment/Problem Details: Patient presents with shortness of breath and respiratory failure. Chest x-ray showed pulmonary congestion with evidence of bilateral infiltrate. 2D echo showed dilated IVC with abnormal collapsibility suggestive of volume overload (3) Acute hypoxic respiratory failure: Assessment/Problem Details: Patient has bilateral infiltrate on chest x-ray, respiratory swab was positive for influenza A. Patient is currently getting treatment for healthcare associated pneumonia as well since he has recent hospitalization (4) T2DM (type 2 diabetes mellitus): (5) Elevated troponin level not due to acute coronary syndrome: (6) Anemia of renal disease: Assessment/Problem Details: He has anemia in the setting of SONYA with superimposed infection. Patient has elevated ferritin and low iron saturation in setting of infection. Plan * Will plan for hemodialysis today with ultrafiltration 3 to 4 L. * Will check ANCA, SUSANA and anti-GBM antibody * Hemoglobin has markedly improved after transfusion and ultrafiltration up to 10.3 g/dL. Patient already had 2 units of packed RBCs. Will start IV iron and erythropoietin with dialysis once infection resolves. * All medications were reviewed. Patient is currently on meropenem and vancomycin. Blood culture showed no growth x 3 days. Sputum endotracheal culture showed Rajiv * Will monitor daily intake, output and renal panel to adjust medications and dialysis prescription as indicated. Documented By: Sanket Hammer MD 08/04/23 1205 Signed By: <Electronically signed by Sanket Hammer MD> 08/04/23 120 [facility] Work Phone: [phone] 305-584303-11-2024 Progress note Author Vania Chacon [facility] August 04, 2023 10:34am Note Date/Time August 04, 2023 10: 26am [facility] [address] [place] [address] Hospitalist Progress Note Signed Patient: Sudeep Diego JR MR#: [id number] : 1950 Acct:[id number] Age/Sex: 72 / M Adm Date: 4 Loc: Room: [address] [place] [address] Type: ADM IN Attending Dr: Vania Chacon MD Copies to: ~ Date of Service: 08/04/2023 Subjective Subjective Narrative: Seen and examined On mechanical ventilation sedated No fever Exam Physical Exam Vital Signs: Temp Pulse Resp BP Pulse Ox O2 Del Method FiO2 99.1 F H 100 16 137/66 94 L Mechanical Ventilation 35 08/04/23 06:00 08/04/23 09:20 08/04/23 09:20 08/04/23 08:57 08/04/23 06:00 08/04/23 08:30 08/04/23 10:00 Narrative: General sedated and intubated HEENT PERRLA Neck supple no JVD no carotid bruit CVS S1-S2 regular rate and rhythm no murmur no gallop Chest bilateral wheezing Abdomen soft bowel sounds normoactive no rebound no guarding Extremities no stenosis no clubbing no edema Musculoskeletal exam normal no joint effusion Neurologic sedated and intubated Objective Lab Results 08/04/23 04:46 08/04/23 07:34 Microbiology Results Microbiology 08/02/23 03:30 Urine - Santana Catheter Urine Culture - Final No Growth 2 Days 08/01/23 07:33 Blood - Right Antecubital Blood Culture - Preliminary No Growth 3 Days 08/01/23 07:40 Blood - Left Hand Blood Culture - Preliminary No Growth 3 Days 08/01/23 09:00 Sputum - Endotrachael Aerobic Culture - Final Rajiv dubliniensis 08/01/23 09:00 Sputum - Endotrachael Gram Stain - Final ABG Interpretation ABG results: 08/04/23 05:09 ABG pH 7.37 ABG pCO2 36.5 ABG pO2 66.4 L ABG HCO3 20.7 L ABG Total CO2 21.8 L ABG O2 Saturation 92.1 L ABG O2 Content 6.0 L ABG Base Excess -4.0 L Meds Allergies and Active Meds Allergies cefepime Allergy (Unknown, Verified 07/10/23 18:46) Hives lisinopril Allergy (Unknown, Verified 07/10/23 18:46) Swelling of Lip/Tongue/Throat, SWELLING metformin Allergy (Unknown, Verified 07/10/23 18:46) Back Pain, KIDNEY PAIN Active Meds: Active Medications Generic Name Dose Route Start Last Admin Trade Name Freq PRN Reason Stop Dose Admin Acetaminophen 650 mg 08/01/23 14:13 08/02/23 16:27 Acetaminophen 325 Mg Tablet PO 07/31/24 14:12 650 mg Q6H PRN Administration Pain Albuterol 6 puff 08/01/23 12:00 08/04/23 05:35 Albuterol Hfa 200 Puff/18 Gm Inhaler VENT 07/31/24 11:59 6 puff Q6HR KACI Administration Chlorhexidine Gluconate 15 ml 08/01/23 09:00 08/04/23 08:46 Chlorhexidine Gluconate 0.12% 15 Ml Udc MUCOUS MEM 07/31/24 08:59 15 ml BID KACI Administration Dextrose 0 gm 08/01/23 08:05 Dextrose 50% In Water 25 Gm/50 Ml Syringe IV-PUSH 07/31/24 08:04 PRN PRN Hypoglycemia Docusate Sodium 100 mg 08/04/23 09:00 08/04/23 08:46 Docusate Liquid 100 Mg/10 Ml Udc PO 08/03/24 08:59 Not Given BID KACI Fentanyl Citrate 50 mcg 08/02/23 09:44 08/03/23 21:01 Fentanyl/Pf 100 Mcg/2 Ml Vial IV-PUSH 50 mcg Q2H PRN Administration Pain Scale 4 - 7 Glucose 0 gm 08/01/23 08:05 Dextrose 40% Gel 15 Gm Tube PO 07/31/24 08:04 PRN PRN Hypoglycemia Heparin Sodium (Porcine) 2,000 unit 08/01/23 10:32 08/01/23 15:56 Heparin 10,000 Unit/10 Ml Vial IV 07/31/24 10:31 2,000 unit PRN PRN Administration Dialysis Heparin Sodium (Porcine) 500 unit 08/01/23 10:32 08/01/23 15:56 Heparin 10,000 Unit/10 Ml Vial IV 07/31/24 10:31 500 unit PRN PRN Administration Dialysis Heparin Sodium (Porcine) 2,000 unit 08/02/23 09:41 08/02/23 22:59 Heparin 10,000 Unit/10 Ml Vial IV 08/01/24 09:40 2,000 unit PRN PRN Administration Dialysis Heparin Sodium (Porcine) 5,000 unit 08/02/23 14:00 08/04/23 06:22 Heparin 5,000 Unit/Ml Vial SUBCUT 08/01/24 13:59 5,000 unit Q8HR [facility]I Administration Propofol 1,000 mg in 100 mls @ 12.492 mls/hr 08/01/23 08:15 08/04/23 08:57 Diprivan IV 07/31/24 08:14 50 mcg/kg/min .Q8H1M [facility] 31.23 mls/hr Titration Protocol 20 MCG/KG/MIN Sodium Chloride 1,000 mls @ 0 mls/hr 08/01/23 10:32 08/01/23 15:59 0.9% Sodium Chloride 1,000 Ml MISCELLANE 07/31/24 10:31 Infused .Q0M PRN Infusion Dialysis As Directed Meropenem 0.5 gm in 100 mls @ 33.3 mls/hr 08/01/23 14:00 08/03/23 14:58 Merrem IV 33.3 mls/hr Q24H [facility] Administration Sodium Chloride 1,000 mls @ 0 mls/hr 08/02/23 09:41 08/02/23 23:01 0.9% Sodium Chloride 1,000 Ml MISCELLANE 08/01/24 09:40 Infused .Q0M PRN Infusion Dialysis As Directed Fentanyl 1,000 mcg in 100 mls @ 2.5 mls/hr 08/03/23 22:30 08/04/23 10:19 Fentanyl 1,000 Mcg/100 Ml D5w IV 100 mcg/hr .Q24H [facility] 10 mls/hr Titration Protocol 25 MCG/HR Insulin Aspart 0 units 08/01/23 12:00 08/04/23 06:30 Insulin Aspart 300 Units/3 Ml Insuln.Pen SUBCUT 07/31/24 11:59 Not Given Q6HR [facility] Protocol Magnesium Hydroxide 30 ml 08/03/23 22:14 Magnesium Hydroxide Susp 30 Ml Udc PO 08/02/24 22:13 DAILY PRN Constipation Pantoprazole Sodium 40 mg 08/01/23 09:00 08/04/23 08:46 Pantoprazole 40 Mg Vial IV-PUSH 07/31/24 08:59 40 mg DAILY KACI Administration Propofol 0 mg 08/01/23 08:12 08/02/23 04:45 Propofol - Infusion Bolus 1,000 Mg/100 Ml Vial IV 07/31/24 08:11 20 mg PROTOCOL PRN Administration Bolus Documentation Sennosides 8.8 mg 08/04/23 09:00 08/04/23 08:46 Sennosides Syrup 8.8 Mg/5 Ml Udc PO 08/03/24 08:59 Not Given BID KACI Sodium Chloride 10 ml 08/01/23 08:07 08/04/23 08:46 Sodium Chloride 0.9 % 10 Ml Vial.Pf INJECTION 07/31/24 08:06 10 ml PRN PRN Administration Dilution Sodium Chloride 10 ml 08/01/23 08:07 08/01/23 08:49 Sodium Chloride 0.9 % 10 Ml Syringe IV-PUSH 07/31/24 08:06 10 ml PRN PRN Administration Flush Sodium Chloride 0 ml 08/01/23 10:32 08/01/23 15:57 Sodium Chloride 0.9 % 10 Ml Syringe IV-PUSH 07/31/24 10:31 40 ml PRN PRN Administration Flush Sodium Chloride 0 ml 08/02/23 09:41 08/02/23 22:58 Sodium Chloride 0.9 % 10 Ml Syringe IV-PUSH 08/01/24 09:40 40 ml PRN PRN Administration Flush A&P - Hospitalist Assessment/Plan (1) Acute hypoxic respiratory failure: (2) Acute pulmonary edema: (3) ESRD (end stage renal disease): (4) Leukocytosis: (5) T2DM (type 2 diabetes mellitus): (6) Hyperlipemia: (7) HTN (hypertension): (8) PAD (peripheral artery disease): (9) SONYA (acute kidney injury): Plan ASSESSMENT AND PLAN: Acute hypoxic respiratory failure Acute influenza A Seen and examined Clinically stable Still on clinical ventilation with FiO2 35 Still sedated by propofol and fentanyl Plan for dialysis today Plan for weaning trial today Continue with breathing treatment Severe progressive anemia, most likely related to chronic kidney disease and chronic disease with his recent diabetic foot. Hemoglobin and hematocrit are stable 10.3/29.4 Recent severe issues with diabetic foot with kim osteomyelitis, visible bone, requiring a transmetatarsal amputation the previous hospital stay on 07/18/2023. Recent MSSA osteomyelitis of the left forefoot, appears to be treated successfully with a trans metatarsal amputation. Continue meropenem Diabetes mellitus type 2, described as brittle, with recent hemoglobin A1c uncontrolled at 8.1. Accu-Check every 6 hours Insulin sliding scale History of peripheral arterial disease with angioplasty to the left lower extremity in the past. History of hypertension: Controlled History of dyslipidemia. n.p.o. 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 DVT prophylaxis heparin Documented By: Vania Chacon MD 08/04/23 1024 Signed By: <Electronically signed by Vania Chacon MD> 08/04/23 1034 [facility] Work Phone: [phone] Progress note Author Eulogio Ruvalcaba [facility] August 03, 2023 1:32pm Note Date/Time August 03, 2023 1:3 2pm [facility] [address] [place] [address] Hospitalist Progress Note Signed Patient: Sudeep Diego JR MR#: [id number] : 1950 Acct:[id number] Age/Sex: 72 / M Adm Date: 4 Loc: Room: [address] [place] [address] Type: ADM IN Attending Dr: Eulogio Ruvalcaba MD Copies to: ~ Date of Service: 08/03/2023 Subjective Subjective Narrative: Patient was seen at bedside. He remained intubated and sedated. Had a discussion with the folder tier at bedside. He did not do well with a spontaneous breathing trial. Patient had ultrafiltration yesterday. Tomorrow he may have some dialysis. Hisurine output is very low. Multiple consultants are on board. ON ADMISSION: This is a 72-year-old male who presented to the emergency room at the [facility] in the overnight or marketing technologist hours. Reports right now are uncertain but in my discussion with the overnight hospitalist he presented thereon supplemental oxygen. They had to put him on high flow nasal cannula system. Then eventually he was intubated. He arrived here at about 6:00 in the morning and appeared to be relatively stable on the ventilator. He recently had a very significant hospital stay here from July 10 through July 25. At that time he presented with a diabetic foot wound on his left foot. He had been waiting at home where he described feeling terrible shaking chills and fevers and noticed that his foot wound down by the toes suddenly became verypurulent and he could see bone. During the hospital stay he did have a transmetatarsal amputation. He was followed by podiatry, infectious diseases, and went into acute kidney injury so he had care from nephrology. The first is he got broad-spectrum antibiotics with vancomycin and meropenem and then his antibiotics were refined to Unasyn. 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 He had to be started on hemodialysis. Cultures from his foot wound did grow Staphylococcus aureus which was not methicillin resistant, and he also had growth of Enterococcus vaginalis. He did have a persistent elevation in his leukocytosis on the last hospital stay of an uncertain etiology. He did appear to have some return of renal function with making adequate urine output, but was uncertain if he would ever have a good enough return of renal function to get off hemodialysis. He was finally discharged to a [facility] facility in the [place] area to continue hemodialysis and antibiotics and have physical rehabilitation. On looking at the chart, before this significant hospital stay in the middle of June his past medical history was limited to diabetes and hypertension and he had peripheral arterial disease having undergone angioplasty to the left lower extremity. As I examined the patient in the ICU his family members come into the room. They did explain that he was noncompliant with caring for his diabetes. 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 I did pointout that his hemoglobin A1c was 8.1 and they admit that this is a pretty good hemoglobin A1c for him. It seems that at the [facility] facility he was not making progress. They describe him being very fatigued from the dialysis. He would often not eat on the dialysis days and they are trying to change the timing of his meals. They said that on Friday he told them that he felt great. But then Friday night he began having dyspnea which was new and sudden problem for him. By he had to be put on supplemental oxygen by about 3 to 4 L. They do not describe him having a cough. Then when the dyspneaworsened overnight he did present to the outside emergency room. Family memberstold me that the outside hospital did mention that he was positive for influenzaA, they were concerned about flash pulmonary edema and they were also concerned about blood clot but it explained that the outside hospital did not have a VQ scan to be able to evaluate him for that problem. His family members do report that he did smoke cigarettes up until the past hospital stay, but did not have any lung disease that they know of. He never required oxygen before. Exam Physical Exam Vital Signs: Temp Pulse Resp BP Pulse Ox O2 Del Method FiO2 98.8 F 98 26 H 165/79 H 96 Mechanical Ventilation 35 08/03/23 08:00 08/03/23 13:04 08/03/23 13:04 08/03/23 11:00 08/03/23 11:00 08/03/23 11:00 08/03/23 13:04 Objective Lab Results 08/03/23 04:40 08/03/23 04:40 Microbiology Results Microbiology 08/01/23 09:00 Sputum - Endotrachael Aerobic Culture - Final Rajiv dubliniensis 08/01/23 09:00 Sputum - Endotrachael Gram Stain - Final 08/02/23 03:30 Urine - Santana Catheter Urine Culture - Preliminary No Growth 1 Day 08/01/23 07:33 Blood - Right Antecubital Blood Culture - Preliminary No Growth 2 Days 08/01/23 07:40 Blood - Left Hand Blood Culture - Preliminary No Growth 2 Days ABG Interpretation ABG results: 08/03/23 05:40 ABG pH 7.45 ABG pCO2 35.3 ABG pO2 63.3 L ABG HCO3 23.8 ABG Total CO2 24.8 ABG O2 Saturation 92.3 L ABG O2 Content 5.9 L ABG Base Excess 0.0 Meds Allergies and Active Meds Allergies cefepime Allergy (Unknown, Verified 07/10/23 18:46) Hives lisinopril Allergy (Unknown, Verified 07/10/23 18:46) Swelling of Lip/Tongue/Throat, SWELLING metformin Allergy (Unknown, Verified 07/10/23 18:46) Back Pain, KIDNEY PAIN Active Meds: Active Medications Generic Name Dose Route Start Last Admin Trade Name Freq PRN Reason Stop Dose Admin Acetaminophen 650 mg 08/01/23 14:13 08/02/23 16:27 Acetaminophen 325 Mg Tablet PO 07/31/24 14:12 650 mg Q6H PRN Administration Pain Albuterol 6 puff 08/01/23 12:00 08/03/23 13:04 Albuterol Hfa 200 Puff/18 Gm Inhaler VENT 07/31/24 11:59 6 puff Q6HR KACI Administration Chlorhexidine Gluconate 15 ml 08/01/23 09:00 08/03/23 10:13 Chlorhexidine Gluconate 0.12% 15 Ml Udc MUCOUS MEM 07/31/24 08:59 15 ml BID KACI Administration Dextrose 0 gm 08/01/23 08:05 Dextrose 50% In Water 25 Gm/50 Ml Syringe IV-PUSH 07/31/24 08:04 PRN PRN Hypoglycemia Fentanyl Citrate 50 mcg 08/02/23 09:44 08/03/23 09:39 Fentanyl/Pf 100 Mcg/2 Ml Vial IV-PUSH 50 mcg Q2H PRN Administration Pain Scale 4 - 7 Furosemide 100 mg 08/03/23 12:15 08/03/23 12:53 Furosemide 100 Mg/10 Ml Vial IV-PUSH 08/03/23 21:01 100 mg BID KACI Administration Glucose 0 gm 08/01/23 08:05 Dextrose 40% Gel 15 Gm Tube PO 07/31/24 08:04 PRN PRN Hypoglycemia Heparin Sodium (Porcine) 2,000 unit 08/01/23 10:32 08/01/23 15:56 Heparin 10,000 Unit/10 Ml Vial IV 07/31/24 10:31 2,000 unit PRN PRN Administration Dialysis Heparin Sodium (Porcine) 500 unit 08/01/23 10:32 08/01/23 15:56 Heparin 10,000 Unit/10 Ml Vial IV 07/31/24 10:31 500 unit PRN PRN Administration Dialysis Heparin Sodium (Porcine) 2,000 unit 08/02/23 09:41 08/02/23 22:59 Heparin 10,000 Unit/10 Ml Vial IV 08/01/24 09:40 2,000 unit PRN PRN Administration Dialysis Heparin Sodium (Porcine) 5,000 unit 08/02/23 14:00 08/03/23 06:21 Heparin 5,000 Unit/Ml Vial SUBCUT 08/01/24 13:59 5,000 unit Q8HR KACI Administration Propofol 1,000 mg in 100 mls @ 12.492 mls/hr 08/01/23 08:15 08/03/23 07:54 Diprivan IV 07/31/24 08:14 45 mcg/kg/min .Q8H1M [facility] 28.11 mls/hr Administration Protocol 20 MCG/KG/MIN Sodium Chloride 1,000 mls @ 0 mls/hr 08/01/23 10:32 08/01/23 15:59 0.9% Sodium Chloride 1,000 Ml MISCELLANE 07/31/24 10:31 Infused .Q0M PRN Infusion Dialysis As Directed Meropenem 0.5 gm in 100 mls @ 33.3 mls/hr 08/01/23 14:00 08/02/23 13:42 Merrem IV 33.3 mls/hr Q24H K[facility]I Administration Sodium Chloride 1,000 mls @ 0 mls/hr 08/02/23 09:41 08/02/23 23:01 0.9% Sodium Chloride 1,000 Ml MISCELLANE 08/01/24 09:40 Infused .Q0M PRN Infusion Dialysis As Directed Insulin Aspart 0 units 08/01/23 12:00 08/03/23 12:16 Insulin Aspart 300 Units/3 Ml Insuln.Pen SUBCUT 07/31/24 11:59 Not Given Q6HR [facility]I Protocol Pantoprazole Sodium 40 mg 08/01/23 09:00 08/03/23 10:13 Pantoprazole 40 Mg Vial IV-PUSH 07/31/24 08:59 40 mg DAILY KACI Administration Propofol 0 mg 08/01/23 08:12 08/02/23 04:45 Propofol - Infusion Bolus 1,000 Mg/100 Ml Vial IV 07/31/24 08:11 20 mg PROTOCOL PRN Administration Bolus Documentation Sodium Chloride 10 ml 08/01/23 08:07 08/03/23 10:13 Sodium Chloride 0.9 % 10 Ml Vial.Pf INJECTION 07/31/24 08:06 10 ml PRN PRN Administration Dilution Sodium Chloride 10 ml 08/01/23 08:07 08/01/23 08:49 Sodium Chloride 0.9 % 10 Ml Syringe IV-PUSH 07/31/24 08:06 10 ml PRN PRN Administration Flush Sodium Chloride 0 ml 08/01/23 10:32 08/01/23 15:57 Sodium Chloride 0.9 % 10 Ml Syringe IV-PUSH 07/31/24 10:31 40 ml PRN PRN Administration Flush Sodium Chloride 0 ml 08/02/23 09:41 08/02/23 22:58 Sodium Chloride 0.9 % 10 Ml Syringe IV-PUSH 08/01/24 09:40 40 ml PRN PRN Administration Flush Vancomycin HCl 1 each 08/01/23 13:01 Vancomycin - Pharmacy Dosing 1 Each Miscell IV ONCE PRN ZZ.Pharmacy Consult Protocol A&P - Hospitalist Assessment/Plan (1) Acute hypoxic respiratory failure: (2) Acute pulmonary edema: (3) ESRD (end stage renal disease): (4) Leukocytosis: (5) T2DM (type 2 diabetes mellitus): (6) Hyperlipemia: (7) HTN (hypertension): (8) PAD (peripheral artery disease): (9) SONYA (acute kidney injury): Plan ASSESSMENT AND PLAN: 08/03/2023 Acute hypoxic respiratory failure Need for mechanical ventilation for respiratory support. Report of influenza A positivity. Severe progressive anemia, most likely related to chronic kidney disease and chronic disease with his recent diabetic foot. Recent severe issues with diabetic foot with kim osteomyelitis, visible bone, requiring a transmetatarsal amputation the previous hospital stay on 07/18/2023. Recent MSSA osteomyelitis of the left forefoot, appears to be treated successfully with a trans metatarsal amputation. Diabetes mellitus type 2, described as brittle, with recent hemoglobin A1c uncontrolled at 8.1. History of peripheral arterial disease with angioplasty to the left lower extremity in the past. History of hypertension. History of dyslipidemia. 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 Will remain in ICU; vented and sedated Appreciate consult from restaurant management internship, folder tier Patient failed a spontaneous breathing trial. He needs to be on vent, as the sedation was withdrawal he was tachycardic and respiratory rate was high Patient will have hemodialysis possibly tomorrow. Appreciate consult from mainframe consultant. Prognosis guarded. Sputum culture. Bio fire nasal PCR test. Propofol for gentle sedation. Sliding scale level 2 for glycemic control. Check fingerstick blood glucoses every 6 hours, or more frequently if he becomeshypoglycemic. Check CBC, BMP, portable chest x-ray, ABG, and EKG daily while on the ventilator. Documented By: Eulogio Ruvalcaba MD 08/03/231329 Signed By: <Electronically signed by Eulogio Ruvalcaba MD> 08/03/23 1332 [facility] Work Phone: [phone]) 768-129803-10-2024 Progress note Author Elder Varner [facility] August 03, 2023 1:12pm Note Date/Time August 03, 2023 1:1 2pm [facility] [address] [place] [address] Pulmonology Progress Note Signed Patient: Sudeep Diego JR MR#: [id number] : 1950 Acct:[id number] Age/Sex: 72 / M Adm Date: 4 Loc: Room: [address] [place] [address] Type: ADM IN Attending Dr: Eulogio Ruvalcaba MD Copies to: ~ Date of Service: 08/03/2023 Subjective Subjective Narrative: Remains critically ill on the vent and sedated. Tolerated ultrafiltration relatively well yesterday. Now with moderate ET tube secretions. Gets somewhatagitated when sedation is decreased. Exam Physical Exam Vital Signs: Temp Pulse Resp BP Pulse Ox O2 Del Method FiO2 98.8 F 99 22 165/79 H 96 Mechanical Ventilation 35 08/03/23 08:00 08/03/23 11:00 08/03/23 11:00 08/03/23 11:00 08/03/23 11:00 08/03/23 11:00 08/03/23 11:00 Const Other: Sedated, appears in no acute distress. HEENT Head: normocephalic and atraumatic Neck Neck: supple Resp Effort & Inspection: normal respiratory effort Auscultation: clear to auscultation bilaterally Cardio Rate: regular rate Heart Sounds: no murmurs Objective Intake and Output I&O - Last 24 Hours: Intake & Output 08/02/23 08/03/23 08/03/23 22:59 07:59 15:59 Intake Total Output Total Balance Weight Labs 08/03/23 04:40 08/03/23 04:40 Microbiology Micro: Microbiology 3 08/01/23 09:00 Aerobic Culture - Final Sputum - Endotrachael Rajiv dubliniensis Gram Stain - Final 08/02/23 03:30 Urine Culture - Preliminary Urine - Santana Catheter No Growth 1 Day 08/01/23 07:33 Blood Culture - Preliminary Blood - Right Antecubital No Growth 2 Days 08/01/23 07:40 Blood Culture - Preliminary Blood - Left Hand No Growth 2 Days Imaging and Cardiology Chest x-ray: Status: image reviewed by me Additional comments: Chest x-ray from today was reviewed and compared with his prior imaging. There appears to be slight worsening in the right basilar infiltrate/effusion when compared to yesterday's x-ray Assessment/Plan Assessment/Plan (1) Acute hypoxic respiratory failure: Plan: With evidence of bilateral pulmonary infiltrates with differential diagnosis most commonly include infectious process versus volume overload among others. Significant fevers on presentation with concern for pneumonia that now have significantly improved. Cultures remain negative so far. Will continue with vancomycin and cefepime for now pending final culture results. His fever trends are coming down. I proceeded with weaning trials today after decreasing his propofol dose but developed significant tachypnea, desaturation and tachycardia. He was placed back on full support and would likely try again tomorrow after hemodialysis and volume removal. (2) Acute pulmonary edema: Plan: Underwent ultrafiltration with volume removal yesterday. Will administer high- dose Lasix to see if this helps with urine output. Plan for repeat hemodialysistomorrow. (3) ESRD (end stage renal disease): Plan: Plan for hemodialysis tomorrow as discussed with renal team. Add Lasix. (4) T2DM (type 2 diabetes mellitus): Plan: Continue sliding scale insulin coverage. Will start tube feeding today and advance as tolerated. (5) PAD (peripheral artery disease): Plan: Underwent recent amputation due to poor circulation. Plan Plan of care was discussed with ICU team Critical care time was 32 minutes. Documented By: Elder Varner MD 08/03/23 1307 Signed By: <Electronically signed by Elder Varner MD> 08/03/23 1312 [facility] Work Phone: [phone] Progress note Author Sury Winkler [facility] August 03, 2023 12:56pm Note Date/Time August 03, 2023 12: 52pm [facility] [address] [place] [address] Nephrology Progress Note Signed Patient: Sudeep Diego JR MR#: [id number] : 1950 Acct:[id number] Age/Sex: 72 / M Adm Date: 4 Loc: Room: [address] [place] [address] Type: ADM IN Attending Dr: Eulogio Ruvalcaba MD Copies to: ~ Date of Service: 08/03/2023 Subjective Subjective Narrative: Mr. Diego is a 72-year-old male with history of DM2, HTN, PAD and prostate cancer. Patient was recently started on hemodialysis during his admission in June 2023 for SONYA possibly related to ATN versus Staph aureus glomerulonephritis. 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 Creatinine has increased up to 5 mg/dL with no evidence of recovery. [facility]. Patient presented to [facility] from his nursing facility with severe shortness of breath requiring intubation. Chest x-ray showed bilateral pulmonary infiltrate with possible pulmonary edema. Subsequently the patient was transferred to [facility] and he continues to be on vent. Respiratory swab showed evidence of influenza A. Patient is currently being treated for healthcare associated pneumonia with vancomycin and meropenem. Troponin was found to be elevated up to 1700. Hemoglobin was only 6.5 g/dL in setting of infection. Cardiology evaluated the patient and no intervention is planned at this point at the patient most likely has type II demand decreased cardiac perfusion. Nephrology was consulted for ESRD and dialysis. Interval history: Patient is being seen and examined in the ICU. Had additional ultrafiltration yesterday with 3.5 L ultrafiltration. Patient has Santana catheter with minimal urine output. Blood pressure still elevated however respiratory status has markedly improved. Patient is currently on CPAP on 35% oxygen and he will have a trial of extubation later on. Patient still on sedation however he is able to open his eyes and respond to commands. Exam Physical Exam Vital Signs: Temp Pulse Resp BP Pulse Ox O2 Del Method FiO2 37.1 C 99 22 165/79 H 96 Mechanical Ventilation 35 08/03/23 08:00 08/03/23 11:00 08/03/23 11:00 08/03/23 11:00 08/03/23 11:00 08/03/23 11:00 08/03/23 11:00 Narrative: Constitutional: Looks ill, sedated on vent however he open his eyes HEENT: Atraumatic, normal cephalic. Significant pallor with no jaundice or cyanosis. Cardiovascular: RRR, normal S1-S2, no gallop or rub, No JVD Respiratory: Diminished breath sounds with scattered crackles in both lung ashraf. Gastrointestinal: Soft, non tender, positive bowel sounds. No palpable organs or masses. Extremities: Still has edema however it is improved with ultrafiltration Skin: No rashes or bruises Musculoskeletal: No joints swellings or inflammation Neurology: Sedated on vent Vascular access: Right IJ tunneled hemodialysis catheter with clean exit site. Objective Intake and Output I&O: Intake & Output 07/31/23 08/01/23 08/02/23 08/04/23 23:59 23:59 23:59 00:59 Intake Total 2800 / 2800 1340 / 1340 380 / 380 Output Total 3550 / 3550 110 / 110 3670 / 3670 Balance -750 / -750 1230 / 1230 -3290 / -3290 Weight 104.1 kg 101.7 kg 102.1 kg Meds and Allergies Meds: Active Medications Acetaminophen (Acetaminophen 325 Mg Tablet) 650 mg PO Q6H PRN PRN Reason: Pain Stop: 07/31/24 14:12 Last Admin: 08/02/23 16:27 Dose: 650 mg Albuterol (Albuterol Hfa 200 Puff/18 Gm Inhaler) 6 puff VENT Q6HR KACI Stop: 07/31/24 11:59 Last Admin: 08/03/23 05:32 Dose: 6 puff Chlorhexidine Gluconate (Chlorhexidine Gluconate 0.12% 15 Ml Udc) 15 ml MUCOUS MEM BID [facility] Stop: 07/31/24 08:59 Last Admin: 08/03/23 10:13 Dose: 15 ml Dextrose (Dextrose 50% In Water 25 Gm/50 Ml Syringe) 0 gm IV-PUSH PRN PRN PRN Reason: Hypoglycemia Stop: 07/31/24 08:04 Fentanyl Citrate (Fentanyl/Pf 100 Mcg/2 Ml Vial) 50 mcg IV-PUSH Q2H PRN PRN Reason: Pain Scale 4 - 7 Last Admin: 08/03/23 09:39 Dose: 50 mcg Furosemide (Furosemide 100 Mg/10 Ml Vial) 100 mg IV-PUSH BID [facility] Stop: 08/03/23 21:01 Glucose (Dextrose 40% Gel 15 Gm Tube) 0 gm PO PRN PRN PRN Reason: Hypoglycemia Stop: 07/31/24 08:04 Heparin Sodium (Porcine) (Heparin 10,000 Unit/10 Ml Vial) 2,000 unit IV PRN PRN PRN Reason: Dialysis Stop: 07/31/24 10:31 Last Admin: 08/01/23 15:56 Dose: 2,000 unit Heparin Sodium (Porcine) (Heparin 10,000 Unit/10 Ml Vial) 500 unit IV PRN PRN PRN Reason: Dialysis Stop: 07/31/24 10:31 Last Admin: 08/01/23 15:56 Dose: 500 unit Heparin Sodium (Porcine) (Heparin 10,000 Unit/10 Ml Vial) 2,000 unit IV PRN PRN PRN Reason: Dialysis Stop: 08/01/24 09:40 Last Admin: 08/02/23 22:59 Dose: 2,000 unit Heparin Sodium (Porcine) (Heparin 5,000 Unit/Ml Vial) 5,000 unit SUBCUT Q8HR [facility] Stop: 08/01/24 13:59 Last Admin: 08/03/23 06:21 Dose: 5,000 unit Propofol (Diprivan) 1,000 mg in 100 mls @ 12.492 mls/hr IV .Q8H1M [facility]; Protocol Stop: 07/31/24 08:14 Last Admin: 08/03/23 07:54 Dose: 45 mcg/kg/min, 28.11 mls/hr Sodium Chloride (0.9% Sodium Chloride 1,000 Ml) 1,000 mls @ 0 mls/hr MISCELLANE.Q0M PRN PRN Reason: Dialysis Stop: 07/31/24 10:31 Last Infusion: 08/01/23 15:59 Dose: Infused Meropenem (Merrem) 0.5 gm in 100 mls @ 33.3 mls/hr IV Q24H [facility] Last Admin: 08/02/23 13:42 Dose: 33.3 mls/hr Sodium Chloride (0.9% Sodium Chloride 1,000 Ml) 1,000 mls @ 0 mls/hr MISCELLANE.Q0M PRN PRN Reason: Dialysis Stop: 08/01/24 09:40 Last Infusion: 08/02/23 23:01 Dose: Infused Insulin Aspart (Insulin Aspart 300 Units/3 Ml Insuln.Pen) 0 units SUBCUT Q6HR [facility]; Protocol Stop: 07/31/24 11:59 Last Admin: 08/03/23 12:16 Dose: Not Given Pantoprazole Sodium (Pantoprazole 40 Mg Vial) 40 mg IV-PUSH DAILY [facility]ACI Stop: 07/31/24 08:59 Last Admin: 08/03/23 10:13 Dose: 40 mg Propofol (Propofol - Infusion Bolus 1,000 Mg/100 Ml Vial) 0 mg IV PROTOCOL PRN PRN Reason: Bolus Documentation Stop: 07/31/24 08:11 Last Admin: 08/02/23 04:45 Dose: 20 mg Sodium Chloride (Sodium Chloride 0.9 % 10 Ml Vial.Pf) 10 ml INJECTION PRN PRN PRN Reason: Dilution Stop: 07/31/24 08:06 Last Admin: 08/03/23 10:13 Dose: 10 ml Sodium Chloride (Sodium Chloride 0.9 % 10 Ml Syringe) 10 ml IV-PUSH PRN PRN PRN Reason: Flush Stop: 07/31/24 08:06 Last Admin: 08/01/23 08:49 Dose: 10 ml Sodium Chloride (Sodium Chloride 0.9 % 10 Ml Syringe) 0 ml IV-PUSH PRN PRN PRN Reason: Flush Stop: 07/31/24 10:31 Last Admin: 08/01/23 15:57 Dose: 40 ml Sodium Chloride (Sodium Chloride 0.9 % 10 Ml Syringe) 0 ml IV-PUSH PRN PRN PRN Reason: Flush Stop: 08/01/24 09:40 Last Admin: 08/02/23 22:58 Dose: 40 ml Vancomycin HCl (Vancomycin - Pharmacy Dosing 1 Each Miscell) 1 each IV ONCE PRN; Protocol PRN Reason: ZZ.Pharmacy Consult Allergies cefepime Allergy (Unknown, Verified 07/10/23 18:46) Hives lisinopril Allergy (Unknown, Verified 07/10/23 18:46) Swelling of Lip/Tongue/Throat, SWELLING metformin Allergy (Unknown, Verified 07/10/23 18:46) Back Pain, KIDNEY PAIN Results - Nephrology Labs 08/03/23 04:40 08/03/23 04:40 Labs: 08/03/23 04:40 BUN 38 H Creatinine 3.38 H D Radiology Impressions Impressions - last 24 hours: Impressions Chest X-Ray 08/03/23 05:00 IMPRESSION: CONTINUED BILATERAL PARENCHYMAL CHANGES. Impression dictated by: Pallavi Hernandez M.D.08/03/2023 8:05 AM Dictation Location: [place] [address] Any impression(s) listed above is documentation that was entered by the reading physician into a diagnostic report(s) for Sudeep Diego JR. I have reviewed the report(s) and am incorporating any findings in the treatment plan of this patient where applicable. A&P - Nephrology Assessment/Plan (1) SONYA (acute kidney injury): Assessment/Problem Details: Patient developed SONYA during his previous admission on June 2023 with left foot infection and staph bacteremia with no evidence of recovery currently on dialysis. Baseline creatinine was 1.1 mg/dL. Patient gets dialysis on F schedule (2) Acute pulmonary edema: Assessment/Problem Details: Patient presents with shortness of breath and respiratory failure. Chest x-ray showed pulmonary congestion with evidence of bilateral infiltrate. 2D echo showed dilated IVC with abnormal collapsibility suggestive of volume overload (3) Acute hypoxic respiratory failure: Assessment/Problem Details: Patient has bilateral infiltrate on chest x-ray, respiratory swab was positive for influenza A. Patient is currently getting treatment for healthcare associated pneumonia as well since he has recent hospitalization (4) T2DM (type 2 diabetes mellitus): (5) Elevated troponin level not due to acute coronary syndrome: (6) Anemia of renal disease: Assessment/Problem Details: He has anemia in the setting of SONYA with superimposed infection. Patient has elevated ferritin and low iron saturation in setting of infection. Plan * Respiratory status has improved with fluid removal after hemodialysis on Friday and ultrafiltration on Friday. Patient still has volume overload. Potassium is normal and creatinine is down to 3.38 mg/dL with dialysis. He has Santana catheter with minimal urine output, will try IV furosemide 100 mg twice a day to increase urine output. Will arrange for dialysis tomorrow with additional ultrafiltration. * Hemoglobin has markedly improved after transfusion and ultrafiltration up to 9.9 g/dL. Patient already had 2 units of packed RBCs. Will start IV iron and erythropoietin with dialysis once infection resolves. * All medications were reviewed. Patient is currently on meropenem and vancomycin. Blood culture showed no growth x 2 days. Sputum endotracheal culture showed Rajiv * Will monitor daily intake, output and renal panel to adjust medications and dialysis prescription as indicated. Documented By: Sury Winkler MD 08/03/231251 Signed By: <Electronically signed by MD Sury Winkler> 08/03/23 [facility] Work Phone: [phone]) 602-321603-09-2024 Progress note Author Elder Varner [facility] August 02, 2023 2:23pm Note Date/Time August 02, 2023 2:23 pm [facility] [address] [place] [address] Pulmonology Progress Note Signed Patient: Sudeep Diego JR MR#: [id number] : 1950 Acct:[id number] Age/Sex: 72 / M Adm Date: 4 Loc: Room: [address] [place] [address] Type: ADM IN Attending Dr: Eulogio Ruvalcaba MD Copies to: ~ Date of Service: 08/02/2023 Subjective Subjective Narrative: Remains critically ill on the vent and sedated. Tolerated hemodialysis relatively well yesterday. Mild ET tube secretions. Responded to commands whensedation was decreased earlier today. Exam Physical Exam Vital Signs: Temp Pulse Resp BP Pulse Ox O2 Del Method FiO2 98.0 F 84 22 136/67 98 Mechanical Ventilation 35 08/02/23 08:00 08/02/23 13:49 08/02/23 13:00 08/02/23 13:49 08/02/23 13:00 08/02/23 13:00 08/02/23 13:00 Const Other: Sedated, appears in no acute distress. HEENT Head: normocephalic and atraumatic Neck Neck: supple Resp Effort & Inspection: normal respiratory effort Auscultation: clear to auscultation bilaterally Cardio Rate: regular rate Heart Sounds: no murmurs Objective Intake and Output I&O - Last 24 Hours: Intake & Output 08/01/23 08/02/23 08/02/23 23:59 07:59 15:59 Intake Total 900 / 2800 300 / 500 200 / 500 Output Total 3525 / 3550 30 / 30 Balance -2625 / -750 270 / 470 200 / 470 Weight 101.7 kg Labs 08/02/23 04:21 08/02/23 04:21 Microbiology Micro: Microbiology 3 08/01/23 09:00 Aerobic Culture - Preliminary Sputum - Endotrachael Rare normal respiratory suyapa 1 Day Gram Stain - Final 08/01/23 07:33 Blood Culture - Preliminary Blood - Right Antecubital No Growth 1 Day 08/01/23 07:40 Blood Culture - Preliminary Blood - Left Hand No Growth 1 Day 08/01/23 09:30 Respiratory Panel (PCR) - Final Nasopharyngeal Imaging and Cardiology Chest x-ray: Status: image reviewed by me Additional comments: Chest x-ray was reviewed with somewhat of poor quality but does not appear to besignificantly changed compared to yesterday's chest x-ray Assessment/Plan Assessment/Plan (1) Acute hypoxic respiratory failure: Plan: With evidence of bilateral pulmonary infiltrates with differential diagnosis most commonly include infectious process versus volume overload among others. Significant fevers on presentation with concern for pneumonia. Will continue with vancomycin and cefepime for now pending culture results. His fever trends are coming down. Would likely benefit from further volume removal before initiating weaning trials and hopefully extubation. Discussed with renal team. Plan for ultrafiltration for volume removal later ontoday. (2) Acute pulmonary edema: Plan: Plan for ultrafiltration and volume removal later on today. (3) ESRD (end stage renal disease): Plan: Tolerated hemodialysis relatively well. Plan for ultrafiltration today as discussed with renal team. (4) T2DM (type 2 diabetes mellitus): Plan: Continue sliding scale insulin coverage. Hold off on tube feeding for now as I expect extubation hopefully within the next 24 hours. (5) PAD (peripheral artery disease): Plan: Underwent recent amputation due to poor circulation. Plan Plan of care was discussed with ICU team Critical care time was 32 minutes. Documented By: Elder Varner MD 08/02/23 1417 Signed By: <Electronically signed by Elder Varner MD> 08/02/23 142 [facility] Work Phone: [phone]) 545-806003-09-2024 Progress note Author Sury Winkler [facility] August 02, 2023 12:58pm Note Date/Time August 02, 2023 12:5 4pm [facility] [address] [place] [address] Nephrology Progress Note Signed Patient: Sudeep Diego JR MR#: [id number] : 1950 Acct:[id number] Age/Sex: 72 / M Adm Date: 4 Loc: Room: 2D9421-2 Type: ADM IN Attending Dr: Eulogio Ruvalcaba MD Copies to: ~ Date of Service: 08/02/2023 Subjective Subjective Narrative: Mr. Diego is a 72-year-old male with history of DM2, HTN, PAD and prostate cancer. Patient was recently started on hemodialysis during his admission in June 2023 for SONYA possibly related to ATN versus Staph aureus glomerulonephritis. 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 Creatinine has increased up to 5 mg/dL with no evidence of recovery. [facility]. Patient presented to [facility] from his nursing facility with severe shortness of breath requiring intubation. Chest x-ray showed bilateral pulmonary infiltrate with possible pulmonary edema. Subsequently the patient was transferred to [facility] and he continues to be on vent. Respiratory swab showed evidence of influenza A. Patient is currently being treated for healthcare associated pneumonia with vancomycin and meropenem. Troponin was found to be elevated up to 1700. Hemoglobin was only 6.5 g/dL in setting of infection. Cardiology evaluated the patient and no intervention is planned at this point at the patient most likely has type II demand decreased cardiac perfusion. Nephrology was consulted for ESRD and dialysis. Interval history: Patient is being seen and examined in his room. He still sedated on vent. He had hemodialysis yesterday with 3.5 L ultrafiltration. Oxygenation did improve with FiO2 down to 35%. Patient is continued to have significant lower extremity edema. Blood pressure stable 130s to 150 systolic. Patient has Santana catheter with minimal urine output. Exam Physical Exam Vital Signs: Temp Pulse Resp BP Pulse Ox O2 Del Method FiO2 36.7 C 82 22 130/65 96 Mechanical Ventilation 35 08/02/23 08:00 08/02/23 12:00 08/02/23 12:00 08/02/23 12:00 08/02/23 12:00 08/02/23 12:00 08/02/23 12:00 Narrative: Constitutional: Looks ill, sedated on vent HEENT: Atraumatic, normal cephalic. Significant pallor with no jaundice or cyanosis. Cardiovascular: RRR, normal S1-S2, no gallop or rub, No JVD Respiratory: Diminished breath sounds with scattered crackles in both lung ashraf. Gastrointestinal: Soft, non tender, positive bowel sounds. No palpable organs or masses. Extremities: 2+ edema Skin: No rashes or bruises Musculoskeletal: No joints swellings or inflammation Neurology: Sedated on vent Vascular access: Right IJ tunneled hemodialysis catheter with clean exit site. Objective Intake and Output I&O: Intake & Output 07/30/23 07/31/23 08/01/23 08/02/23 23:59 23:59 23:59 23:59 Intake Total 2700 / 2700 400 / 400 Output Total 3550 / 3550 30 / 30 Balance -850 / -850 370 / 370 Weight 104.1 kg 101.7 kg Meds and Allergies Meds: Active Medications Acetaminophen (Acetaminophen 325 Mg Tablet) 650 mg PO Q6H PRN PRN Reason: Pain Stop: 07/31/24 14:12 Last Admin: 08/02/23 03:32 Dose: 650 mg Albuterol (Albuterol Hfa 200 Puff/18 Gm Inhaler) 6 puff VENT Q6HR [facility] Stop: 07/31/24 11:59 Last Admin: 08/02/23 11:47 Dose: 6 puff Chlorhexidine Gluconate (Chlorhexidine Gluconate 0.12% 15 Ml Udc) 15 ml MUCOUS MEM BID [facility] Stop: 07/31/24 08:59 Last Admin: 08/02/23 08:21 Dose: 15 ml Dextrose (Dextrose 50% In Water 25 Gm/50 Ml Syringe) 0 gm IV-PUSH PRN PRN PRN Reason: Hypoglycemia Stop: 07/31/24 08:04 Fentanyl Citrate (Fentanyl/Pf 100 Mcg/2 Ml Vial) 50 mcg IV-PUSH Q2H PRN PRN Reason: Pain Scale 4 - 7 Last Admin: 08/02/23 10:54 Dose: 50 mcg Glucose (Dextrose 40% Gel 15 Gm Tube) 0 gm PO PRN PRN PRN Reason: Hypoglycemia Stop: 07/31/24 08:04 Heparin Sodium (Porcine) (Heparin 10,000 Unit/10 Ml Vial) 2,000 unit IV PRN PRN PRN Reason: Dialysis Stop: 07/31/24 10:31 Last Admin: 08/01/23 15:56 Dose: 2,000 unit Heparin Sodium (Porcine) (Heparin 10,000 Unit/10 Ml Vial) 500 unit IV PRN PRN PRN Reason: Dialysis Stop: 07/31/24 10:31 Last Admin: 08/01/23 15:56 Dose: 500 unit Heparin Sodium (Porcine) (Heparin 10,000 Unit/10 Ml Vial) 2,000 unit IV PRN PRN PRN Reason: Dialysis Stop: 08/01/24 09:40 Heparin Sodium (Porcine) (Heparin 5,000 Unit/Ml Vial) 5,000 unit SUBCUT Q8HR [facility] Stop: 08/01/24 13:59 Propofol (Diprivan) 1,000 mg in 100 mls @ 12.492 mls/hr IV .Q8H1M [facility]; Protocol Stop: 07/31/24 08:14 Last Admin: 08/02/23 08:22 Dose: 45 mcg/kg/min, 28.11 mls/hr Sodium Chloride (0.9% Sodium Chloride 1,000 Ml) 1,000 mls @ 0 mls/hr MISCELLANE.Q0M PRN PRN Reason: Dialysis Stop: 07/31/24 10:31 Last Infusion: 08/01/23 15:59 Dose: Infused Meropenem (Merrem) 0.5 gm in 100 mls @ 33.3 mls/hr IV Q24H [facility] Last Admin: 08/01/23 17:57 Dose: 33.3 mls/hr Sodium Chloride (0.9% Sodium Chloride 1,000 Ml) 1,000 mls @ 0 mls/hr MISCELLANE.Q0M PRN PRN Reason: Dialysis Stop: 08/01/24 09:40 Insulin Aspart (Insulin Aspart 300 Units/3 Ml Insuln.Pen) 0 units SUBCUT Q6HR KACI; Protocol Stop: 07/31/24 11:59 Last Admin: 08/02/23 11:49 Dose: 2 units Pantoprazole Sodium (Pantoprazole 40 Mg Vial) 40 mg IV-PUSH DAILY KACI Stop: 07/31/24 08:59 Last Admin: 08/02/23 08:22 Dose: 40 mg Propofol (Propofol - Infusion Bolus 1,000 Mg/100 Ml Vial) 0 mg IV PROTOCOL PRN PRN Reason: Bolus Documentation Stop: 07/31/24 08:11 Last Admin: 08/02/23 04:45 Dose: 20 mg Sodium Chloride (Sodium Chloride 0.9 % 10 Ml Vial.Pf) 10 ml INJECTION PRN PRN PRN Reason: Dilution Stop: 07/31/24 08:06 Last Admin: 08/01/23 08:49 Dose: 10 ml Sodium Chloride (Sodium Chloride 0.9 % 10 Ml Syringe) 10 ml IV-PUSH PRN PRN PRN Reason: Flush Stop: 07/31/24 08:06 Last Admin: 08/01/23 08:49 Dose: 10 ml Sodium Chloride (Sodium Chloride 0.9 % 10 Ml Syringe) 0 ml IV-PUSH PRN PRN PRN Reason: Flush Stop: 07/31/24 10:31 Last Admin: 08/01/23 15:57 Dose: 40 ml Sodium Chloride (Sodium Chloride 0.9 % 10 Ml Syringe) 0 ml IV-PUSH PRN PRN PRN Reason: Flush Stop: 08/01/24 09:40 Vancomycin HCl (Vancomycin - Pharmacy Dosing 1 Each Miscell) 1 each IV ONCE PRN; Protocol PRN Reason: ZZ.Pharmacy Consult Allergies cefepime Allergy (Unknown, Verified 07/10/23 18:46) Hives lisinopril Allergy (Unknown, Verified 07/10/23 18:46) Swelling of Lip/Tongue/Throat, SWELLING metformin Allergy (Unknown, Verified 07/10/23 18:46) Back Pain, KIDNEY PAIN Results - Nephrology Labs 08/02/23 04:21 08/02/23 04:21 Labs: 08/02/23 08/02/23 03:30 04:21 BUN 23 Creatinine 2.71 H D Urine Color Dark yellow A Urine Appearance Turbid A Urine pH 5.0 Ur Specific [place] 1.027 Urine Protein 300 H Urine Glucose (UA) Normal Urine Ketones Trace H Urine Occult Blood Trace H Urine Nitrite Negative Ur Leukocyte Esterase 2+ H Urine RBC 3-4 Urine WBC Innumerable H Urine Bacteria 1+ H Radiology Impressions Impressions - last 24 hours: Impressions Venous Duplex 08/01/23 08:05 IMPRESSION: NO EVIDENCE FOR DEEP VEIN THROMBOSIS OR PROXIMAL SUPERFICIAL THROMBOPHLEBITIS INTHE RIGHT OR LEFT LOWER EXTREMITY. Impression dictated by: Dhruv Bautista M.D.08/02/2023 9:26 AM Dictation Location: [place] [address] Chest X-Ray 08/02/23 05:00 IMPRESSION: SLIGHT LIMITED STUDY. CONTINUED PARENCHYMAL CHANGES. Impression dictated by: Pallavi Hernandez M.D.08/02/2023 8:10 AM Dictation Location: [place] [address] Any impression(s) listed above is documentation that was entered by the reading physician into a diagnostic report(s) for Sudeep Diego JR. I have reviewed the report(s) and am incorporating any findings in the treatment plan of this patient where applicable. A&P - Nephrology Assessment/Plan (1) SONYA (acute kidney injury): Assessment/Problem Details: Patient developed SONYA during his previous admission on June 2023 with left foot infection and staph bacteremia with no evidence of recovery currently on dialysis. Baseline creatinine was 1.1 mg/dL. Patient gets dialysis on F schedule (2) Acute pulmonary edema: Assessment/Problem Details: Patient presents with shortness of breath and respiratory failure. Chest x-ray showed pulmonary congestion with evidence of bilateral infiltrate. 2D echo showed dilated IVC with abnormal collapsibility suggestive of volume overload (3) Acute hypoxic respiratory failure: Assessment/Problem Details: Patient has bilateral infiltrate on chest x-ray, respiratory swab was positive for influenza A. Patient is currently getting treatment for healthcare associated pneumonia as well since he has recent hospitalization (4) T2DM (type 2 diabetes mellitus): (5) Elevated troponin level not due to acute coronary syndrome: (6) Anemia of renal disease: Assessment/Problem Details: He has anemia in the setting of SONYA with superimposed infection. Patient has elevated ferritin and low iron saturation in setting of infection. Plan * Respiratory status has improved with fluid removal however the patient still has edema and elevated blood pressure. Will do additional ultrafiltration today for 3 hours, 3 L fluid removal. Order in the chart. * Hemoglobin has markedly improved after transfusion and ultrafiltration up to 9.7 g/dL. Patient already had 2 units of packed RBCs. Will start IV iron and erythropoietin with dialysis once infection resolves. * All medications were reviewed. Patient is currently on meropenem and vancomycin pending the result of blood culture and sputum culture. Dose is being managed by the pharmacy. * Will monitor daily intake, output and renal panel to adjust medications and dialysis prescription as indicated. Documented By: Sury Winkler MD 08/02/234 Signed By: <Electronically signed by MD Sury Winkler> 08/02/23 [address] [facility] Work Phone: [phone]) 417-170603-09-2024 Progress note Author Eulogio Ruvalcaba [facility] August 02, 2023 11:24am Note Date/Time August 02, 2023 11:2 4am [facility] [address] [place] [address] Hospitalist Progress Note Signed Patient: Sudeep Diego JR MR#: [id number] : 1950 Acct:[id number] Age/Sex: 72 / M Adm Date: 4 Loc: Room: [address] [place] [address] Type: ADM IN Attending Dr: Eulogio Ruvalcaba MD Copies to: ~ Date of Service: 08/02/2023 Subjective Subjective Narrative: Patient was seen at bedside. He is intubated and sedated. He will have his hemodialysis today. Then he may go for spontaneous breathing trial. Multiple consultants are on board. ON ADMISSION: This is a 72-year-old male who presented to the emergency room at the [facility] in the overnight or marketing technologist hours. Reports right now are uncertain but in my discussion with the overnight hospitalist he presented thereon supplemental oxygen. They had to put him on high flow nasal cannula system. Then eventually he was intubated. He arrived here at about 6:00 in the morning and appeared to be relatively stable on the ventilator. He recently had a very significant hospital stay here from July 10 through July 25. At that time he presented with a diabetic foot wound on his left foot. He had been waiting at home where he described feeling terrible shaking chills and fevers and noticed that his foot wound down by the toes suddenly became verypurulent and he could see bone. During the hospital stay he did have a transmetatarsal amputation. He was followed by podiatry, infectious diseases, and went into acute kidney injury so he had care from nephrology. The first is he got broad-spectrum antibiotics with vancomycin and meropenem and then his antibiotics were refined to Unasyn. 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 He had to be started on hemodialysis. Cultures from his foot wound did grow Staphylococcus aureus which was not methicillin resistant, and he also had growth of Enterococcus vaginalis. He did have a persistent elevation in his leukocytosis on the last hospital stay of an uncertain etiology. He did appear to have some return of renal function with making adequate urine output, but was uncertain if he would ever have a good enough return of renal function to get off hemodialysis. He was finally discharged to a [facility] facility in the [facility] to continue hemodialysis and antibiotics and have physical rehabilitation. On looking at the chart, before this significant hospital stay in the middle of June his past medical history was limited to diabetes and hypertension and he had peripheral arterial disease having undergone angioplasty to the left lower extremity. As I examined the patient in the ICU his family members come into the room. They did explain that he was noncompliant with caring for his diabetes. 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 I did pointout that his hemoglobin A1c was 8.1 and they admit that this is a pretty good hemoglobin A1c for him. It seems that at the [facility] facility he was not making progress. They describe him being very fatigued from the dialysis. He would often not eat on the dialysis days and they are trying to change the timing of his meals. They said that on Friday he told them that he felt great. But then Friday night he began having dyspnea which was new and sudden problem for him. By he had to be put on supplemental oxygen by about 3 to 4 L. They do not describe him having a cough. Then when the dyspneaworsened overnight he did present to the outside emergency room. Family memberstold me that the outside hospital did mention that he was positive for influenzaA, they were concerned about flash pulmonary edema and they were also concerned about blood clot but it explained that the outside hospital did not have a VQ scan to be able to evaluate him for that problem. His family members do report that he did smoke cigarettes up until the past hospital stay, but did not have any lung disease that they know of. He never required oxygen before. Exam Physical Exam Vital Signs: Temp Pulse Resp BP Pulse Ox O2 Del Method FiO2 98.0 F 85 22 157/74 H 96 Mechanical Ventilation 35 08/02/23 08:00 08/02/23 10:00 08/02/23 10:00 08/02/23 10:00 08/02/23 10:00 08/02/23 10:00 08/02/23 10:00 Objective Lab Results 08/02/23 04:21 08/02/23 04:21 Microbiology Results Microbiology 08/01/23 09:00 Sputum - Endotrachael Aerobic Culture - Preliminary Rare normal respiratory suyapa 1 Day 08/01/23 09:00 Sputum - Endotrachael Gram Stain - Final 08/01/23 07:33 Blood - Right Antecubital Blood Culture - Preliminary No Growth 1 Day 08/01/23 07:40 Blood - Left Hand Blood Culture - Preliminary No Growth 1 Day 08/01/23 09:30 Nasopharyngeal Respiratory Panel (PCR) - Final ABG Interpretation ABG results: 08/02/23 05:41 ABG pH 7.44 ABG pCO2 36.3 ABG pO2 65.3 L ABG HCO3 23.9 ABG Total CO2 25.0 ABG O2 Saturation 93.0 L ABG O2 Content 6.6 ABG Base Excess 0.0 Meds Allergies and Active Meds Allergies cefepime Allergy (Unknown, Verified 07/10/23 18:46) Hives lisinopril Allergy (Unknown, Verified 07/10/23 18:46) Swelling of Lip/Tongue/Throat, SWELLING metformin Allergy (Unknown, Verified 07/10/23 18:46) Back Pain, KIDNEY PAIN Active Meds: Active Medications Generic Name Dose Route Start Last Admin Trade Name Freq PRN Reason Stop Dose Admin Acetaminophen 650 mg 08/01/23 14:13 08/02/23 03:32 Acetaminophen 325 Mg Tablet PO 07/31/24 14:12 650 mg Q6H PRN Administration Pain Albuterol 6 puff 08/01/23 12:00 08/02/23 05:26 Albuterol Hfa 200 Puff/18 Gm Inhaler VENT 07/31/24 11:59 6 puff Q6HR KACI Administration Chlorhexidine Gluconate 15 ml 08/01/23 09:00 08/02/23 08:21 Chlorhexidine Gluconate 0.12% 15 Ml Udc MUCOUS MEM 07/31/24 08:59 15 ml BID KACI Administration Dextrose 0 gm 08/01/23 08:05 Dextrose 50% In Water 25 Gm/50 Ml Syringe IV-PUSH 07/31/24 08:04 PRN PRN Hypoglycemia Fentanyl Citrate 50 mcg 08/02/23 09:44 08/02/23 10:54 Fentanyl/Pf 100 Mcg/2 Ml Vial IV-PUSH 50 mcg Q2H PRN Administration Pain Scale 4 - 7 Glucose 0 gm 08/01/23 08:05 Dextrose 40% Gel 15 Gm Tube PO 07/31/24 08:04 PRN PRN Hypoglycemia Heparin Sodium (Porcine) 2,000 unit 08/01/23 10:32 08/01/23 15:56 Heparin 10,000 Unit/10 Ml Vial IV 07/31/24 10:31 2,000 unit PRN PRN Administration Dialysis Heparin Sodium (Porcine) 500 unit 08/01/23 10:32 08/01/23 15:56 Heparin 10,000 Unit/10 Ml Vial IV 07/31/24 10:31 500 unit PRN PRN Administration Dialysis Heparin Sodium (Porcine) 2,000 unit 08/02/23 09:41 Heparin 10,000 Unit/10 Ml Vial IV 08/01/24 09:40 PRN PRN Dialysis Heparin Sodium (Porcine) 5,000 unit 08/02/23 14:00 Heparin 5,000 Unit/Ml Vial SUBCUT 08/01/24 13:59 Q8HR KACI Propofol 1,000 mg in 100 mls @ 12.492 mls/hr 08/01/23 08:15 08/02/23 08:22 Diprivan IV 07/31/24 08:14 45 mcg/kg/min .Q8H1M KACI 28.11 mls/hr Administration Protocol 20 MCG/KG/MIN Sodium Chloride 1,000 mls @ 0 mls/hr 08/01/23 10:32 08/01/23 15:59 0.9% Sodium Chloride 1,000 Ml MISCELLANE 07/31/24 10:31 Infused .Q0M PRN Infusion Dialysis As Directed Meropenem 0.5 gm in 100 mls @ 33.3 mls/hr 08/01/23 14:00 08/01/23 17:57 Merrem IV 33.3 mls/hr Q24H KACI Administration Sodium Chloride 1,000 mls @ 0 mls/hr 08/02/23 09:41 0.9% Sodium Chloride 1,000 Ml MISCELLANE 08/01/24 09:40 .Q0M PRN Dialysis As Directed Insulin Aspart 0 units 08/01/23 12:00 08/02/23 06:09 Insulin Aspart 300 Units/3 Ml Insuln.Pen SUBCUT 07/31/24 11:59 Not Given Q6HR KACI Protocol Pantoprazole Sodium 40 mg 08/01/23 09:00 08/02/23 08:22 Pantoprazole 40 Mg Vial IV-PUSH 07/31/24 08:59 40 mg DAILY KACI Administration Propofol 0 mg 08/01/23 08:12 08/02/23 04:45 Propofol - Infusion Bolus 1,000 Mg/100 Ml Vial IV 07/31/24 08:11 20 mg PROTOCOL PRN Administration Bolus Documentation Sodium Chloride 10 ml 08/01/23 08:07 08/01/23 08:49 Sodium Chloride 0.9 % 10 Ml Vial.Pf INJECTION 07/31/24 08:06 10 ml PRN PRN Administration Dilution Sodium Chloride 10 ml 08/01/23 08:07 08/01/23 08:49 Sodium Chloride 0.9 % 10 Ml Syringe IV-PUSH 07/31/24 08:06 10 ml PRN PRN Administration Flush Sodium Chloride 0 ml 08/01/23 10:32 08/01/23 15:57 Sodium Chloride 0.9 % 10 Ml Syringe IV-PUSH 07/31/24 10:31 40 ml PRN PRN Administration Flush Sodium Chloride 0 ml 08/02/23 09:41 Sodium Chloride 0.9 % 10 Ml Syringe IV-PUSH 08/01/24 09:40 PRN PRN Flush Vancomycin HCl 1 each 08/01/23 13:01 Vancomycin - Pharmacy Dosing 1 Each Miscell IV ONCE PRN ZZ.Pharmacy Consult Protocol A&P - Hospitalist Assessment/Plan (1) Acute hypoxic respiratory failure: (2) Acute pulmonary edema: (3) ESRD (end stage renal disease): (4) Leukocytosis: (5) T2DM (type 2 diabetes mellitus): (6) Hyperlipemia: (7) HTN (hypertension): (8) PAD (peripheral artery disease): (9) SONYA (acute kidney injury): Plan ASSESSMENT AND PLAN: 08/02/2023 Acute hypoxic respiratory failure Need for mechanical ventilation for respiratory support. Report of influenza A positivity. Severe progressive anemia, most likely related to chronic kidney disease and chronic disease with his recent diabetic foot. Recent severe issues with diabetic foot with kim osteomyelitis, visible bone, requiring a transmetatarsal amputation the previous hospital stay on 07/18/2023. Recent MSSA osteomyelitis of the left forefoot, appears to be treated successfully with a trans metatarsal amputation. Diabetes mellitus type 2, described as brittle, with recent hemoglobin A1c uncontrolled at 8.1. History of peripheral arterial disease with angioplasty to the left lower extremity in the past. History of hypertension. History of dyslipidemia. 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 Will remain in ICU; vented and sedated Appreciate consult from restaurant management internship, folder tier Patient will have hemodialysis this afternoon. Appreciate consult from mainframe consultant. Sputum culture. Bio fire nasal PCR test. Propofol for gentle sedation. Sliding scale level 2 for glycemic control. Check fingerstick blood glucoses every 6 hours, or more frequently if he becomeshypoglycemic. Check CBC, BMP, portable chest x-ray, ABG, and EKG daily while on the ventilator. Documented By: Eulogio Ruvalcaba MD 08/02/23 1120 Signed By: <Electronically signed by Eulogio Ruvalcaba MD> 08/02/23 [address] [facility] Work Phone: [phone]) [phone] Consult note Author Sury Winkler [facility] August 01, 2023 5:45pm Note Date/Time August 01, 2023 5:45 pm [facility] [address] [place] [address] Nephrology Consult Note Signed Patient: Sudeep Diego JR MR#: [id number] : 1950 Acct:[id number] Age/Sex: 72 / M Adm Date: 4 Loc: Room: [address] [place] [address] Type: ADM IN Attending Dr: Geo Thomas DO Copies to: MD Geo Moulton DO Marc Naderer, MD~ Providers Consult Date: 08/01/23 Requesting Provider: Geo Thomas DO Primary Care Provider: Tejas Stevens MD [facility] Reason for Consult: Management of SONYA and dialysis during hospital stay History of Present Illness: Mr. Diego is a 72-year-old male with history of DM2, HTN, PAD and prostate cancer. Patient was recently started on hemodialysis during his admission in June 2023 for SONYA possibly related to ATN versus Staph aureus glomerulonephritis. 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 Creatinine has increased up to 5 mg/dL with no evidence of recovery. Patient was discharged to [facility] facility. Patient presented to [facility] from his nursing facility with severe shortness of breath requiring intubation. Chest x-ray showed bilateral pulmonary infiltrate with possible pulmonary edema. Subsequently the patient was transferred to [facility] and he continues to be on vent. Respiratory swab showed evidence of influenza A. Patient is currently being treated for healthcare associated pneumonia with vancomycin and meropenem. Troponin was found to be elevated up to 1700. Hemoglobin was only 6.5 g/dL in setting of infection. Cardiology evaluated the patient and no intervention is planned at this point at the patient most likely has type II demand decreased cardiac perfusion. Nephrology was consulted for ESRD and dialysis. Patient is being seen and examined in ICU. He is sedated on vent on 50% FiO2. He has mild edema. Blood pressure 137/68 with no pressors. Temperature 37.3. Lab was reviewed. WBCs count 10,000, hemoglobin 6.7 as stated above. INR 1.2. Potassium 4.8 and creatinine 3.42. Patient has elevated ferritin in the settingof infection however he has low iron saturation 7.9%. Review of Systems Review of Systems Unobtainable due to endotracheal tube PMFSH Medical History (Updated 08/01/23 @ 17:41 by Sury Winkler MD) Anemia of renal disease SONYA (acute kidney injury) T2DM (type 2 diabetes mellitus) Hyperlipemia HTN (hypertension) PAD (peripheral artery disease) Gangrene of 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 Osteomyelitis Diabetic foot infection Diabetes mellitus due to underlying condition with [...] Brother Cancer muscle Social History Smoking Status: Light tobacco smoker Tobacco Type: cigars Substance Use Type: Marijuana Substance Abuse Comment: former drinker quit several years ago Meds Medications & Allergies Allergies cefepime Allergy (Unknown, Verified 07/10/23 18:46) Hives lisinopril Allergy (Unknown, Verified 07/10/23 18:46) Swelling of Lip/Tongue/Throat, SWELLING metformin Allergy (Unknown, Verified 07/10/23 18:46) Back Pain, KIDNEY PAIN Home Medications atorvastatin 40 mg tablet 40 mg PO DAILY 01/13/23 [History Confirmed 08/01/23] clopidogrel 75 mg tablet (Plavix) 75 mg PO DAILY angioplasty left leg 3 months #90 tabs 01/13/23 [Rx Confirmed 08/01/23] duloxetine 60 mg capsule,delayed release 60 mg PO DAILY 01/13/23 [History Confirmed 08/01/23] flash glucose sensor (FreeStyle Shawn 2 Sensor kit) 01/13/23 [History Confirmed 07/16/23] metoprolol succinate 50 mg tablet,extended release 24 hr 50 mg PO DAILY 01/13/23[History Confirmed 08/01/23] insulin glargine 100 unit/mL (3 mL) subcutaneous pen (Basaglar KwikPen U-100 Insulin) 37 unit subcut 2XD 02/23/23 [History Confirmed 08/01/23] insulin lispro 100 unit/mL subcutaneous pen (Humalog KwikPen (U-100) Insulin) See Rx Instructions .Route .COMPLEX 02/23/23 [History Confirmed 08/01/23] amlodipine 10 mg tablet 10 mg PO DAILY #30 tabs 07/23/23 [Rx Confirmed 08/01/23] furosemide 80 mg tablet 80 mg PO BID@0800,1600 30 days #60 tabs 07/23/23 [Rx Confirmed 08/01/23] oxycodone 5 mg tablet 10 mg (2 x 5 mg) PO Q4H PRN Pain Scale 4 - 7 3 days #10 tabs 07/23/23 [Rx Confirmed 08/01/23] sennosides 8.6 mg-docusate sodium 50 mg tablet 2 tab PO BID #10 tabs 07/23/23 [Rx Confirmed 08/01/23] acetaminophen 325 mg capsule 650 mg (2 x 325 mg) PO Q4-6H PRN pain #30 caps 07/26/23 [Rx Confirmed 08/01/23] atorvastatin 40 mg tablet 40 mg PO QPM #0 tabs 07/26/23 [Rx Confirmed 08/01/23] baclofen 10 mg tablet 10 mg PO BID PRN muscle spams #10 tabs 07/26/23 [Rx Confirmed 08/01/23] gabapentin 300 mg capsule 300 mg PO QPM 30 days #30 caps 07/26/23 [Rx Confirmed 08/01/23] ondansetron 4 mg disintegrating tablet 4 - 8 mg (1 - 2 x 4 mg) PO Q6HR PRN nausea with dialysis #10 tabs 07/26/23 [Rx Confirmed 08/01/23] pantoprazole 40 mg tablet,delayed release 40 mg PO QAM 30 days #0 tabs 07/26/23 [Rx Confirmed 08/01/23] polyethylene glycol 3350 17 gram oral powder packet (HealthyLax) 17 g PO DAILY PRN Constipation #0 ea 07/26/23 [Rx Confirmed 08/01/23] Active Medications: Active Medications Albuterol (Albuterol Hfa 200 Puff/18 Gm Inhaler) 6 puff VENT Q6HR KACI Stop: 07/31/24 11:59 Last Admin: 08/01/23 12:02 Dose: 6 puff Chlorhexidine Gluconate (Chlorhexidine Gluconate 0.12% 15 Ml Udc) 15 ml MUCOUS MEM BID [facility] Stop: 07/31/24 08:59 Last Admin: 08/01/23 09:03 Dose: 15 ml Dextrose (Dextrose 50% In Water 25 Gm/50 Ml Syringe) 0 gm IV-PUSH PRN PRN PRN Reason: Hypoglycemia Stop: 07/31/24 08:04 Glucose (Dextrose 40% Gel 15 Gm Tube) 0 gm PO PRN PRN PRN Reason: Hypoglycemia Stop: 07/31/24 08:04 Heparin Sodium (Porcine) (Heparin 10,000 Unit/10 Ml Vial) 2,000 unit IV PRN PRN PRN Reason: Dialysis Stop: 07/31/24 10:31 Heparin Sodium (Porcine) (Heparin 10,000 Unit/10 Ml Vial) 500 unit IV PRN PRN PRN Reason: Dialysis Stop: 07/31/24 10:31 Propofol (Diprivan) 1,000 mg in 100 mls @ 12.492 mls/hr IV .Q8H1M KACI; Protocol Stop: 07/31/24 08:14 Last Titration: 08/01/23 12:03 Dose: 50 mcg/kg/min, 31.23 mls/hr Sodium Chloride (0.9 % Sodium Chloride) 500 mls @ 20 mls/hr IV PROTOCOL PRN PRN Reason: BLOOD TRANSFUSION Stop: 08/02/23 08:35 Last Admin: 08/01/23 09:31 Dose: 20 mls/hr Sodium Chloride (0.9% Sodium Chloride 1,000 Ml) 1,000 mls @ 0 mls/hr MISCELLANE.Q0M PRN PRN Reason: Dialysis Stop: 07/31/24 10:31 Insulin Aspart (Insulin Aspart 300 Units/3 Ml Insuln.Pen) 0 units SUBCUT Q6HR [facility]; Protocol Stop: 07/31/24 11:59 Last Admin: 08/01/23 11:33 Dose: 2 units Pantoprazole Sodium (Pantoprazole 40 Mg Vial) 40 mg IV-PUSH DAILY [facility] Stop: 07/31/24 08:59 Last Admin: 08/01/23 08:49 Dose: 40 mg Propofol (Propofol - Infusion Bolus 1,000 Mg/100 Ml Vial) 0 mg IV PROTOCOL PRN PRN Reason: Bolus Documentation Stop: 07/31/24 08:11 Sodium Chloride (Sodium Chloride 0.9 % 10 Ml Vial.Pf) 10 ml INJECTION PRN PRN PRN Reason: Dilution Stop: 07/31/24 08:06 Last Admin: 08/01/23 08:49 Dose: 10 ml Sodium Chloride (Sodium Chloride 0.9 % 10 Ml Syringe) 10 ml IV-PUSH PRN PRN PRN Reason: Flush Stop: 07/31/24 08:06 Last Admin: 08/01/23 08:49 Dose: 10 ml Sodium Chloride (Sodium Chloride 0.9 % 10 Ml Syringe) 0 ml IV-PUSH PRN PRN PRN Reason: Flush Stop: 07/31/24 10:31 Exam Physical Exam Vital Signs: Temp Pulse Resp BP Pulse Ox O2 Del Method FiO2 37.0 C 90 25 H 145/65 H 98 Mechanical Ventilation 40 08/01/23 12:00 08/01/23 12:03 08/01/23 12:00 08/01/23 12:03 08/01/23 12:00 08/01/23 12:00 08/01/23 12:00 Narrative: Constitutional: Looks ill, sedated on vent HEENT: Atraumatic, normal cephalic. Significant pallor with no jaundice or cyanosis. Cardiovascular: RRR, normal S1-S2, no gallop or rub, No JVD Respiratory: Diminished breath sounds with scattered crackles in both lung ashraf. Gastrointestinal: Soft, non tender, positive bowel sounds. No palpable organs or masses. Extremities: 2+ edema Skin: No rashes or bruises Musculoskeletal: No joints swellings or inflammation Neurology: Sedated on vent Vascular access: Right IJ tunneled hemodialysis catheter with clean exit site. Results - Nephrology Labs 08/01/23 07:18 08/01/23 07:18 Labs: 08/01/23 08/01/23 07:18 07:34 BUN 32 H Creatinine 3.42 H Iron Saturation 7.9 L Ferritin 636.4 H Albumin 2.5 L Radiology Impressions Impressions - last 24 hours: Impressions Chest X-Ray 08/01/23 06:44 IMPRESSION: LIFE-SUPPORT DEVICES, DESCRIBED. BILATERAL GROUND GLASS OPACITIES. PORTABLE SINGLE VIEW ABDOMEN COMPARISON: None Supine view of the abdomen was obtained. The OG tube extends into the stomach. The side-port is beyond the GE junction. There is no dilated bowel at the upper imaged abdomen. Endplate spurring is noted. IMPRESSION: OG TUBE WITHIN THE STOMACH. Impression dictated by: Pallavi Hernandez M.D.08/01/2023 7:14 AM Dictation Location: [place] [address] Any impression(s) listed above is documentation that was entered by the reading physician into a diagnostic report(s) for Globe JR. I have reviewed the report(s) and am incorporating any findings in the treatment plan of this patient where applicable. ECG Data Attestation: I reviewed this ECG and interpreted as documented below: ECG Narrative: Sinus rhythm with premature atrial complexes. Additional Results Results Comment: 2-D Echo Interpretation Summary Left ventricular systolic function is normal. No regional wall motion abnormalities noted. A variety of Doppler measurements indicate pseudonormalized left ventricular relaxation, which is associated with grade II/IV or mild to moderate diastolic dysfunction. The aortic valve is mildly sclerotic There is mild mitral regurgitation. Right ventricular systolic pressure is consistent with mild pulmonary hypertension. Trivial pericardial effusion not hemodynamically significant The IVC is dialted with an abnormal collapsibility index, this suggestive of increased right atrial pressure. A&P - Nephrology Assessment/Plan (1) SONYA (acute kidney injury): Assessment/Problem Details: Patient developed SONYA during his previous admission on June 2023 with left foot infection and staph bacteremia with no evidence of recovery currently on dialysis. Baseline creatinine was 1.1 mg/dL. Patient gets dialysis on MWF schedule (2) Acute pulmonary edema: Assessment/Problem Details: Patient presents with shortness of breath and respiratory failure. Chest x-ray showed pulmonary congestion with evidence of bilateral infiltrate. 2D echo showed dilated IVC with abnormal collapsibility suggestive of volume overload (3) Acute hypoxic respiratory failure: Assessment/Problem Details: Patient has bilateral infiltrate on chest x-ray, respiratory swab was positive for influenza A. Patient is currently getting treatment for healthcare associated pneumonia as well since he has recent hospitalization (4) T2DM (type 2 diabetes mellitus): (5) Elevated troponin level not due to acute coronary syndrome: (6) Anemia of renal disease: Assessment/Problem Details: He has anemia in the setting of SONYA with superimposed infection. Patient has elevated ferritin and low iron saturation in setting of infection. Plan * Hemodialysis today for 210 minutes, 3K bath with trial of removal 2 to 3 L as tolerated to improve respiratory status. His respiratory failure is a combination of volume overload and pneumonia * Patient already had 2 units of packed RBCs. Iron stores is low and we will avoid IV iron for now till infection resolves. Will start IV iron and erythropoietin with dialysis once infection resolves. * All medications were reviewed. Patient is currently on meropenem and vancomycin pending the result of blood culture and sputum culture. Dose is being managed by the pharmacy. * Will monitor daily intake, output and renal panel to adjust medications and dialysis prescription as indicated. I appreciate this consultation we will be happy to follow the patient with you during hospital stay. Documented By: Sury Winkler MD 08/01/23 1208 Signed By: <Electronically signed by MD Sury Winkler> 08/01/23 [address] [facility] Work Phone: [phone]) 692-958903-08-2024 Consult note Author Mehul Garrett [facility] August 01, 2023 3:55pm Note Date/Time August 01, 2023 10:3 7am [facility] [address] [place] [address] Pulmonology Consult Note Signed Patient: Sudeep Diego JR MR#: [id number] : 1950 Acct:[id number] Age/Sex: 72 / M Adm Date: 4 Loc: Room: [address] [place] [address] Type: ADM IN Attending Dr: Geo Thomas DO Copies to: MD Geo Goldberg, MD Socorro Romero MD, RES~ HPI Date/Time of Consultation: Date of Service: 08/01/2023 Time of Service: 09:01 Consulting Provider: Mehul Garrett Requesting Provider: Geo Thomas History of Present Illness History of present illness: Mr. Diego is a 72 year old male with hx of brittle DM, anemia, and recent hospitalization for transmetatarsal amputation of left foot (discharged July 25), new to HD (MWF) as of that admission secondary to ATN or possibly Strep glomerulonephritis. He was admitted today from SNF who reportedly noted fatigueand SOB beginning Friday, eventually needing supplemental oxygen. He is not on oxygen at baseline. Required intubation at [facility] before transfer. Found to be positive for Influenza A. Severely anemic with Hgb 6.7, initial troponin 1310. Pulm consulted for critical care management. Today, pt is intubated and sedated in the ICU. No family at bedside; no additional history can be obtained. He is diaphragmatic breathing. Vitals stable and able to be weaned from 60% FiO2 to 50% this AM. Nursing reports notably scant secretions. Review of Systems Review of Systems Unobtainable due to endotracheal tube PMFSH Medical History SONYA (acute kidney injury) T2DM (type 2 diabetes mellitus) Hyperlipemia HTN (hypertension) PAD (peripheral artery disease) Anemia of renal disease Gangrene of 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 Osteomyelitis Diabetic foot infection Diabetes mellitus due to underlying condition with [...] Hypertension Mother Diabetes History of stroke [employer] Problem: Diagnosed with Stroke Stroke Brother Cancer muscle Social History Smoking Status: Light tobacco smoker [...] 40 mg PO DAILY 01/13/23 [History Confirmed 08/01/23] clopidogrel 75 mg tablet (Plavix) 75 mg PO DAILY angioplasty left leg 3 months #90 tabs 01/13/23 [Rx Confirmed 08/01/23] duloxetine 60 mg capsule,delayed release 60 mg PO DAILY 01/13/23 [History Confirmed 08/01/23] flash glucose sensor (FreeStyle Shawn 2 Sensor kit) 01/13/23 [History Confirmed 07/16/23] metoprolol succinate 50 mg tablet,extended release 24 hr 50 mg PO DAILY 01/13/23[History Confirmed 08/01/23] insulin glargine 100 unit/mL (3 mL) subcutaneous pen (Basaglar KwikPen U-100 Insulin) 37 unit subcut 2XD 02/23/23 [History Confirmed 08/01/23] insulin lispro 100 unit/mL subcutaneous pen (Humalog KwikPen (U-100) Insulin) See Rx Instructions .Route .COMPLEX 02/23/23 [History Confirmed 08/01/23] amlodipine 10 mg tablet 10 mg PO DAILY #30 tabs 07/23/23 [Rx Confirmed 08/01/23] furosemide 80 mg tablet 80 mg PO BID@0800,1600 30 days #60 tabs 07/23/23 [Rx Confirmed 08/01/23] oxycodone 5 mg tablet 10 mg (2 x 5 mg) PO Q4H PRN Pain Scale 4 - 7 3 days #10 tabs 07/23/23 [Rx Confirmed 08/01/23] sennosides 8.6 mg-docusate sodium 50 mg tablet 2 tab PO BID #10 tabs 07/23/23 [Rx Confirmed 08/01/23] acetaminophen 325 mg capsule 650 mg (2 x 325 mg) PO Q4-6H PRN pain #30 caps 07/26/23 [Rx Confirmed 08/01/23] atorvastatin 40 mg tablet 40 mg PO QPM #0 tabs 07/26/23 [Rx Confirmed 08/01/23] baclofen 10 mg tablet 10 mg PO BID PRN muscle spams #10 tabs 07/26/23 [Rx Confirmed 08/01/23] gabapentin 300 mg capsule 300 mg PO QPM 30 days #30 caps 07/26/23 [Rx Confirmed 08/01/23] ondansetron 4 mg disintegrating tablet 4 - 8 mg (1 - 2 x 4 mg) PO Q6HR PRN nausea with dialysis #10 tabs 07/26/23 [Rx Confirmed 08/01/23] pantoprazole 40 mg tablet,delayed release 40 mg PO QAM 30 days #0 tabs 07/26/23 [Rx Confirmed 08/01/23] polyethylene glycol 3350 17 gram oral powder packet (HealthyLax) 17 g PO DAILY PRN Constipation #0 ea 07/26/23 [Rx Confirmed 08/01/23] Exam Physical Exam Vital Signs: Temp Pulse Resp BP Pulse Ox O2 Del Method FiO2 99.4 F H 80 17 130/68 97 Mechanical Ventilation 50 08/01/23 06:25 08/01/23 08:46 08/01/23 08:01 08/01/23 08:46 08/01/23 07:00 08/01/23 07:00 08/01/23 08:01 Const General: no acute distress and other (intubated and sedated) Orientation: not alert and not awake HEENT Head: normal to inspection, normocephalic and atraumatic Ears: external ears normal Nose: external nose normal Face and sinus: normal facial exam Mouth: other (8.0 ETT secured at 25cm) Neck Neck: normal visual inspection Chest Chest palpation & inspection: normal inspection of the chest Resp Effort & Inspection: symmetric chest movement and other (decreased chest movement, increased diaphragmatic breathing) Auscultation: clear to auscultation bilaterally Cardio Rate: regular rate Rhythm: regular rhythm Heart Sounds: no murmurs and no rubs GI Inspection: normal to inspection Palpation: soft and no guarding General: deferred Skin General: no rashes or lesions noted Wounds: amputation site (L transmetatarsal wound edges well-approximated with sutures intact.) Extrem General: normal to inspection and edema (1+ pitting edema to mid-leon bilaterally) Results - Pulmonology Intake and Output I&O - Last 24 Hours: Intake & Output 07/31/23 08/01/23 08/01/23 23:59 07:59 15:59 Intake Total 100 / 100 Balance 100 / 100 Weight 104.1 kg Labs 08/01/23 07:18 08/01/23 07:18 Microbiology Micro: 08/01/23 07:33 Blood Culture - Pending Blood - Right Antecubital 08/01/23 07:40 Blood Culture - Pending Blood - Left Hand Imaging and Cardiology Chest x-ray: Status: image reviewed by me Additional comments: Date of Service: 08/01/23 XR/XR chest 1V portable: intubation ([id number]) XR/XR abdomen 1V: OG PLACEMENT CLINICAL DATA: Intubation and OG tube placement. Influenza A. PORTABLE AP ERECT CHEST 0652 hours COMPARISON: 07/17/2023 A right-sided dialysis catheter is again visualized. There is an endotracheal tube approximately 4.5 cm above the shakira. The OG tube extends off the lower margin of film. There are patchy bilateral groundglass opacities. No pneumothorax is noted. Pleural effusion is not excluded without a lateral view. The cardiac and mediastinal contours are similar. There is potential dextroscoliotic curvature as well as endplate spurring at the spine. XR/XR chest 1V portable IMPRESSION: LIFE-SUPPORT DEVICES, DESCRIBED. BILATERAL GROUND GLASS OPACITIES. PORTABLE SINGLE VIEW ABDOMEN COMPARISON: None Supine view of the abdomen was obtained. The OG tube extends into the stomach. The side-port is beyond the GE junction. There is no dilated bowel at the upper imaged abdomen. Endplate spurring is noted. IMPRESSION: OG TUBE WITHIN THE STOMACH. Additional Results Results Comments: 08/01/23 06:40 ABG pH 7.39 ABG pCO2 39.0 ABG pO2 75.0 L ABG HCO3 22.9 L ABG Total CO2 24.1 ABG O2 Saturation 94.2 L ABG O2 Content 4.6 L ABG Base Excess -2.0 14/500/60/5 Assessment/Plan (1) Acute hypoxic respiratory failure: (2) Acute pulmonary edema: (3) ESRD (end stage renal disease): (4) Leukocytosis: (5) T2DM (type 2 diabetes mellitus): (6) Hyperlipemia: (7) HTN (hypertension): (8) PAD (peripheral artery disease): (9) SONYA (acute kidney injury): Plan Mr. Diego is a 72m with Hx of brittle DM nonadherent to therapy and recent amputation; discharged 07/25 to SNF for rehabilitation, antibiotics, and HD. Re-admitted 07/31 for acute hypoxic respiratory failure requiring intubation, significant anemia at Hgb 6.7. Influenza A positive, and CXR with bilateral infiltrates possibly consistent with fluid overload or superimposed pneumonia. Plan: -Remain intubated at sedated today -Agree with hospitalist plan; Echo pending, sputum cultures pending, Doppler US pending for outside concern for blood clots, transfuse PRBC, daily CXR and labs -HD per nephrology -Will begin vancomycin and cefepime for empiric coverage of hospital-acquired pneumonia given recent discharge. De-escalate as appropriate as sputum culture results develop Case discussed and patient seen on rounds in conjunction with Dr. Felton. Patient was interviewed and examined. Vital signs and labs were reviewed. Exam is notable for 8.0 mm internal diameter endotracheal tube. Lungs are diminishedthough clear without rhonchi nor wheeze. Cardiovascular exam was regular withoutobvious murmur.abdomen is soft but nontender. Extremities reveal no significantedema with transmetatarsal amputationf left as noted. I agree with the note above. Patient was intubated at outside hospital for respiratory distress with chest x-ray revealing bilateral infiltrates. Patient was noted to be anemic andis influenza A positive. Concern is for pulmonary edema with some of the patient's respiratory distress/dyspnea possibly related to anemia. However as patient is influenza A positive and also had recent hospitalization concerns forhealthcare associated pneumonia cannot be excluded. We will treat patient for healthcare associated pneumonia pending sputum culture results and blood cultureresults and narrow antibiotics as warranted. Patient is receiving blood transfusion and will receive dialysis with hopefully adequate fluid removal and follow-up chest x-ray that might suggest that patient's respiratory issues were more related to volume overload. Patient has allergy to cefepime. We will givepatient meropenem and vancomycin though will de-escalate off these medications as cultures return. Given the patient's already end-stage renal disease I do not believe that the vancomycin is deleterious to renal function in any meaningful way. Documented By: Socorro Felton MD, RES 08/01/23 0901 Signed By: <Electronically signed by MD KELLE Felton> 08/01/23 1156 <Electronically signed by MD Mehul Garrett> 08/01/23 15[address] [facility] Work Phone: [phone] Consult note Author Chip Bravo [facility] August 01, 2023 10:47am Note Date/Time August 01, 2023 10:4 7am [facility] [address] [place] [address] Cardiology Consult Note Signed Patient: Sudeep Diego JR MR#: [id number] : 1950 Acct:[id number] Age/Sex: 72 / M Adm Date: 4 Loc: Room: [address] [place] [address] Type: ADM IN Attending Dr: Geo Thomas DO Copies to: DO Tejas Claudio MD Stephen M Tann, MD~ Cardiology HPI History of Present Illness Consult Date: 08/01/23 Reason for Consult: Respiratory failure, positive troponin HPI: Mr. Diego is a 72 year old male with known peripheral arterial disease end- stage renal disease on hemodialysis chronic anemia diabetes who had recently hada prolonged hospital stay here [facility] which was complicated by some manner of sepsis. Patient was recently discharged to a [facility] in [place]. Apparently the patient had been doing clinically well until Friday when he began to complain of increasing shortness of breath. By last evening the dyspnea was severe enough that it prompted his caregivers at the [facility] to send him to [place] emergency department for evaluation. In the [place] ER the patient was found to be in respiratory failure and was intubated. There was apparently clinical concern for acute hydrostatic pulmonary edema versus pulmonary embolism. The patient was transferred to our facility and admitted to the ICU where he now is intubated and on mechanical ventilation. Initial laboratory evaluation showed marked anemia with hemoglobin of 6.7. Patient remains in renal failure with a estimated GFR less than 10 mL/min and a creatinine on today's laboratories of 3.74. Initial troponin was elevated at 1210 and second troponin further elevated at 1725. Stat echocardiogram this morning showed normal resting left ventricular regional wall motion and systolic function. Ejection fraction is approximately 55 to 60%. There is evidence of grade 2 diastolic relaxation abnormality which would be considered appropriate for the patient's age. There is no echocardiographic evidence of elevated resting left ventricular filling pressures or significant pulmonary hypertension. The IVC is dilated and poorly compressible suggestive of elevated right-sided filling pressures. Given the abnormal troponin in the setting of acute respiratory failure I am now consultedfor further cardiac evaluation and management. 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 Osteomyelitis Diabetic foot infection Diabetes mellitus due to underlying condition with [...] Brother Cancer muscle Social History Smoking Status: Light tobacco smoker [...] 40 mg PO DAILY 01/13/23 [History Confirmed 08/01/23] clopidogrel 75 mg tablet (Plavix) 75 mg PO DAILY angioplasty left leg 3 months #90 tabs 01/13/23 [Rx Confirmed 08/01/23] duloxetine 60 mg capsule,delayed release 60 mg PO DAILY 01/13/23 [History Confirmed 08/01/23] flash glucose sensor (FreeStyle Shawn 2 Sensor kit) 01/13/23 [History Confirmed 07/16/23] metoprolol succinate 50 mg tablet,extended release 24 hr 50 mg PO DAILY 01/13/23[History Confirmed 08/01/23] insulin glargine 100 unit/mL (3 mL) subcutaneous pen (Basaglar KwikPen U-100 Insulin) 37 unit subcut 2XD 02/23/23 [History Confirmed 08/01/23] insulin lispro 100 unit/mL subcutaneous pen (Humalog KwikPen (U-100) Insulin) See Rx Instructions .Route .COMPLEX 02/23/23 [History Confirmed 08/01/23] amlodipine 10 mg tablet 10 mg PO DAILY #30 tabs 07/23/23 [Rx Confirmed 08/01/23] furosemide 80 mg tablet 80 mg PO BID@0800,1600 30 days #60 tabs 07/23/23 [Rx Confirmed 08/01/23] oxycodone 5 mg tablet 10 mg (2 x 5 mg) PO Q4H PRN Pain Scale 4 - 7 3 days #10 tabs 07/23/23 [Rx Confirmed 08/01/23] sennosides 8.6 mg-docusate sodium 50 mg tablet 2 tab PO BID #10 tabs 07/23/23 [Rx Confirmed 08/01/23] acetaminophen 325 mg capsule 650 mg (2 x 325 mg) PO Q4-6H PRN pain #30 caps 07/26/23 [Rx Confirmed 08/01/23] atorvastatin 40 mg tablet 40 mg PO QPM #0 tabs 07/26/23 [Rx Confirmed 08/01/23] baclofen 10 mg tablet 10 mg PO BID PRN muscle spams #10 tabs 07/26/23 [Rx Confirmed 08/01/23] gabapentin 300 mg capsule 300 mg PO QPM 30 days #30 caps 07/26/23 [Rx Confirmed 08/01/23] ondansetron 4 mg disintegrating tablet 4 - 8 mg (1 - 2 x 4 mg) PO Q6HR PRN nausea with dialysis #10 tabs 07/26/23 [Rx Confirmed 08/01/23] pantoprazole 40 mg tablet,delayed release 40 mg PO QAM 30 days #0 tabs 07/26/23 [Rx Confirmed 08/01/23] polyethylene glycol 3350 17 gram oral powder packet (HealthyLax) 17 g PO DAILY PRN Constipation #0 ea 07/26/23 [Rx Confirmed 08/01/23] Exam Physical Exam Vital Signs: Temp Pulse Resp BP Pulse Ox O2 Del Method FiO2 98.6 F 81 17 127/68 97 Mechanical Ventilation 50 08/01/23 10:25 08/01/23 10:25 08/01/23 10:25 08/01/23 10:25 08/01/23 10:25 08/01/23 10:00 08/01/23 10:00 Const General: comfortable, no acute distress and other (Intubated and sedated) Nutritional Appearance: overweight Orientation: other (Completely sedated on mechanical ventilation) HEENT Head: normocephalic and hematoma Mouth: moist mucous membranes abnormal Eyes Conjunctivae: conjunctivae normal Sclera: sclerae normal Pupils: PERRL and accommodation normal Direct ophthalmoscopy: normal light reflex and no photophobia Neck Neck: no lymphadenopathy and supple Neck mass: No Thyroid: thyroid normal Carotids: normal carotid upstroke Lymphatic: no lymphadenopathy noted Chest Chest palpation & inspection: normal inspection of the chest Resp Effort & Inspection: symmetric chest movement and abnormal respiratory pattern Auscultation: clear to auscultation bilaterally Cardio Jugular venous pressure: no JVD Palpation: normal PMI Rate: regular rate Rhythm: regular rhythm Heart Sounds: S1 normal, S2 normal and gallop S4 gallop Pulses: radial pulses present and femoral pulses present GI Palpation: soft and no hepatosplenomegaly Skin General: no rashes or lesions noted Neuro General: no focal motor deficits Sensory Exam: no sensory deficits noted Extrem General: no clubbing, cyanosis or edema Results - Cardiology Labs 08/01/23 07:18 08/01/23 07:18 Lab results: Cardiac Enzymes 08/01/23 Range/Units 07:18 AST 23 (13-39) U/L B-Natriuretic Peptide 886.0 H (5-100) pg/mL Lipids 08/01/23 Range/Units 07:18 Triglycerides 145 (35-149) mg/dL CBC 08/01/23 Range/Units 07:18 RBC 2.22 L (3.90-5.60) X10E6/uL Hgb 6.7 L (13.0-17.0) g/dL Hct 20.0 L (38.8-50.0) % Plt Count 282 (150-450) x10E3/uL Comprehensive Metabolic Panel 08/01/23 Range/Units 07:18 Sodium 131 L (136-145) mmol/L Potassium 4.8 (3.5-5.1) mmol/L Chloride 101 (98-107) mmol/L Carbon Dioxide 24.6 (21.0-31.0) mmol/L BUN 32 H (7-25) mg/dL Creatinine 3.42 H (0.70-1.30) mg/dL Glucose 142 H (70-100) mg/dL Calcium 7.6 L (8.6-10.3) mg/dL AST 23 (13-39) U/L ALT 10 (7-52) U/L Alkaline Phosphatase 63 (34-104) U/L Total Protein 5.5 L (6.4-8.9) gm/dL Albumin 2.5 L (3.5-5.7) gm/dL Intake and Output 07/31/23 08/01/23 08/01/23 23:59 07:59 15:59 Intake Total 100 / 100 Balance 100 / 100 Intake: IV 100 / 100 propofoL 1,000 mg In 100 ml @ 100 / 100 20 MCG/KG/MIN 12.492 mls/hr IV .Q8H1M KACI Rx#:[id number] Other: Total Intake (Blood Product) Cumulative Amt Leukocyte Reduced Rbc Unit 0 [id number] Weight 104.1 kg Patient Weight 08/01/23 23:59 Weight 104.1 kg Lab 08/01/23 07:33 PT 13.4 H INR 1.2 APTT 32.1 Imaging and Cardiology Echo: report reviewed and image reviewed A&P - Cardiology (1) Acute hypoxic respiratory failure: Assessment/Problem Details: No clinical or echocardiographic evidence of cardiogenic source. Patient appears clinically euvolemic and well compensated from a volume standpoint. Plan: Recommend aggressive supportive care on mechanical ventilation and wean as tolerated. It may be prudent to remove some volume when the patient dialyzes later today in an effort to decrease right-sided filling pressures which do appear to be elevated on echocardiogram as this will likely aid with extubation Code(s): J96.01 - Acute respiratory failure with hypoxia (2) Elevated troponin level not due to acute coronary syndrome: Assessment/Problem Details: Small type II event in the setting of systemic illness. No evidence of active acute coronary syndrome Plan: Recommend continued aggressive supportive care and medical management of hypoxicrespiratory failure. Cardiac catheterization is not indicated nor recommended. Code(s): R79.89 - Other specified abnormal findings of blood chemistry Plan Cardiology does not plan on following this patient. Please do not hesitate to reconsult should active cardiac issues arise. Thank you very much for this kindconsultation and for allowing me to participate in the care of this patient and his family. Documented By: Chip Bravo MD 08/01/23 1037 Signed By: <Electronically signed by Chip Bravo MD> 08/01/23 104 [facility] Work Phone: 1(752) 633-134303-08-2024 History and physical note Author Geo Thomas [facility] August 01, 2023 8:39am Note Date/Time August 01, 2023 8:27 am [facility] [address] [place] [address] Hospitalist H&P Signed Patient: Sudeep Diego JR MR#: [id number] : 1950 Acct:[id number] Age/Sex: 72 / M Adm Date: 4 Loc: Room: [address] [place] [address] Type: ADM IN Attending Dr: Geo Thomas DO Copies to: DO Tejas Claudio MD~ HPI DATE OF EXAMINATION: 08/01/23 CHIEF COMPLAINT: Acute dyspnea HISTORY OF PRESENT ILLNESS: This is a 72-year-old male who presented to the emergency room at the [facility] in the overnight or marketing technologist hours. Reports right now are uncertain but in my discussion with the overnight hospitalist he presented thereon supplemental oxygen. They had to put him on high flow nasal cannula system. Then eventually he was intubated. He arrived here at about 6:00 in the morning and appeared to be relatively stable on the ventilator. He recently had a very significant hospital stay here from July 10 through July 25. At that time he presented with a diabetic foot wound on his left foot. He had been waiting at home where he described feeling terrible shaking chills and fevers and noticed that his foot wound down by the toes suddenly became verypurulent and he could see bone. During the hospital stay he did have a transmetatarsal amputation. He was followed by podiatry, infectious diseases, and went into acute kidney injury so he had care from nephrology. The first is he got broad-spectrum antibiotics with vancomycin and meropenem and then his antibiotics were refined to Unasyn. 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 He had to be started on hemodialysis. Cultures from his foot wound did grow Staphylococcus aureus which was not methicillin resistant, and he also had growth of Enterococcus vaginalis. He did have a persistent elevation in his leukocytosis on the last hospital stay of an uncertain etiology. He did appear to have some return of renal function with making adequate urine output, but was uncertain if he would ever have a good enough return of renal function to get off hemodialysis. He was finally discharged to a [facility] facility in the [facility] to continue hemodialysis and antibiotics and have physical rehabilitation. On looking at the chart, before this significant hospital stay in the middle of June his past medical history was limited to diabetes and hypertension and he had peripheral arterial disease having undergone angioplasty to the left lower extremity. As I examined the patient in the ICU his family members come into the room. They did explain that he was noncompliant with caring for his diabetes. 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 I did pointout that his hemoglobin A1c was 8.1 and they admit that this is a pretty good hemoglobin A1c for him. It seems that at the [facility] facility he was not making progress. They describe him being very fatigued from the dialysis. He would often not eat on the dialysis days and they are trying to change the timing of his meals. They said that on Friday he told them that he felt great. But then Friday night he began having dyspnea which was new and sudden problem for him. By he had to be put on supplemental oxygen by about 3 to 4 L. They do not describe him having a cough. Then when the dyspneaworsened overnight he did present to the outside emergency room. Family memberstold me that the outside hospital did mention that he was positive for influenzaA, they were concerned about flash pulmonary edema and they were also concerned about blood clot but it explained that the outside hospital did not have a VQ scan to be able to evaluate him for that problem. His family members do report that he did smoke cigarettes up until the past hospital stay, but did not have any lung disease that they know of. He never required oxygen before. Review of Systems Review of Systems Review of systems: A 10 point review of systems is unable to be obtained as patient is intubated and sedated on the ventilator. 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 Osteomyelitis Diabetic foot infection Diabetes mellitus due to underlying condition with [...] Brother Cancer muscle Social History Smoking Status: Light tobacco smoker [...] 40 mg PO DAILY 01/13/23 [History Confirmed 08/01/23] clopidogrel 75 mg tablet (Plavix) 75 mg PO DAILY angioplasty left leg 3 months #90 tabs 01/13/23 [Rx Confirmed 08/01/23] duloxetine 60 mg capsule,delayed release 60 mg PO DAILY 01/13/23 [History Confirmed 08/01/23] flash glucose sensor (FreeStyle Shawn 2 Sensor kit) 01/13/23 [History Confirmed 07/16/23] metoprolol succinate 50 mg tablet,extended release 24 hr 50 mg PO DAILY 01/13/23[History Confirmed 08/01/23] insulin glargine 100 unit/mL (3 mL) subcutaneous pen (Basaglar KwikPen U-100 Insulin) 37 unit subcut 2XD 02/23/23 [History Confirmed 08/01/23] insulin lispro 100 unit/mL subcutaneous pen (Humalog KwikPen (U-100) Insulin) See Rx Instructions .Route .COMPLEX 02/23/23 [History Confirmed 08/01/23] amlodipine 10 mg tablet 10 mg PO DAILY #30 tabs 07/23/23 [Rx Confirmed 08/01/23] furosemide 80 mg tablet 80 mg PO BID@0800,1600 30 days #60 tabs 07/23/23 [Rx Confirmed 08/01/23] oxycodone 5 mg tablet 10 mg (2 x 5 mg) PO Q4H PRN Pain Scale 4 - 7 3 days #10 tabs 07/23/23 [Rx Confirmed 08/01/23] sennosides 8.6 mg-docusate sodium 50 mg tablet 2 tab PO BID #10 tabs 07/23/23 [Rx Confirmed 08/01/23] acetaminophen 325 mg capsule 650 mg (2 x 325 mg) PO Q4-6H PRN pain #30 caps 07/26/23 [Rx Confirmed 08/01/23] atorvastatin 40 mg tablet 40 mg PO QPM #0 tabs 07/26/23 [Rx Confirmed 08/01/23] baclofen 10 mg tablet 10 mg PO BID PRN muscle spams #10 tabs 07/26/23 [Rx Confirmed 08/01/23] gabapentin 300 mg capsule 300 mg PO QPM 30 days #30 caps 07/26/23 [Rx Confirmed 08/01/23] ondansetron 4 mg disintegrating tablet 4 - 8 mg (1 - 2 x 4 mg) PO Q6HR PRN nausea with dialysis #10 tabs 07/26/23 [Rx Confirmed 08/01/23] pantoprazole 40 mg tablet,delayed release 40 mg PO QAM 30 days #0 tabs 07/26/23 [Rx Confirmed 08/01/23] polyethylene glycol 3350 17 gram oral powder packet (HealthyLax) 17 g PO DAILY PRN Constipation #0 ea 07/26/23 [Rx Confirmed 08/01/23] Exam Physical Exam Vital Signs: Temp Pulse Resp BP Pulse Ox O2 Del Method FiO2 99.4 F H 77 16 92/51 L 97 Mechanical Ventilation 60 08/01/23 06:25 08/01/23 07:00 08/01/23 07:00 08/01/23 07:00 08/01/23 07:00 08/01/23 07:00 08/01/23 07:00 Narrative: GEN: Resting on the ventilator with eyes closed, lightly sedated with propofol. Blood pressure is 92/51. Pulse 77. He is not tachycardic. He is registering amild fever of 99.4. Oxygen saturation is 98% on 50% FiO2 and the respiratory therapist is titrating down the FiO2 Head: Normal Cephalic, Atraumatic. Eyes: Conjunctiva and sclera clear bilaterally. Sclera are noninjected. Nose: External nose and nares normal bilaterally. Mouth: Endotracheal tube position looks good through the lips and teeth Neck: No JVD. No thyromegaly. No lymphadenopathy. Lungs: Clear to auscultation bilaterally (anteriorly only) with no wheezing, nocrackles. Heart: Normal sinus rhythm on the monitor, with regular rate and rhythm, no murmurs, rubs, or gallops. Abdomen: Soft, normal bowel sounds, no rigidity, guarding, or acute peritoneal signs. Extremities: He does have mild puffy edema throughout both lower extremities which his family members believed to be new. I cannot ascertain any calf knots or cords in the veins. Left foot: The dressing was taken down. The dressing was clean and dry and excellent. The transmetatarsal amputation site is excellent. No drainage. No redness. No swelling. The sutures are still in place. Skin: No systemic rashes or lesions. Genitourinary: Santana catheter drains a scant amount of urine without any gross purulence or gross blood. Results - Hospitalist H&P Lab Results Labs: Laboratory Last Values Sample Site Left radial 08/01/23 06:40 ABG pH 7.39 (7.35-7.45) 08/01/23 06:40 ABG pCO2 39.0 mmHg (35.0-45.0) 08/01/23 06:40 ABG pO2 75.0 mmHg (80.0-100.0) L 08/01/23 06:40 ABG HCO3 22.9 mmol/L (23.0-29.0) L 08/01/23 06:40 ABG Total CO2 24.1 mmol/L (23.0-27.0) 08/01/23 06:40 ABG O2 Saturation 94.2 % (95.0-100.0) L 08/01/23 06:40 ABG O2 Content 4.6 mmol/L (6.6-9.7) L 08/01/23 06:40 ABG Base Excess -2.0 mmol/L (-3.0-3.0) 08/01/23 06:40 Set Respiration Rate 14 08/01/23 06:40 Vent Mode Ac 08/01/23 06:40 FiO2 60 % 08/01/23 06:40 Tidal Volume 500 mL 08/01/23 06:40 PEEP 5 cmH2O 08/01/23 06:40 Critical Value 08/01/23 06:40 PHA Creatinine Clear 23.17 08/01/23 07:18 Sodium 131 mmol/L (136-145) L 08/01/23 07:18 Potassium 4.8 mmol/L (3.5-5.1) 08/01/23 07:18 Chloride 101 mmol/L (98-107) 08/01/23 07:18 Carbon Dioxide 24.6 mmol/L (21.0-31.0) 08/01/23 07:18 Anion Gap 10.2 mEq/L (6.0-15.0) 08/01/23 07:18 BUN 32 mg/dL (7-25) H 08/01/23 07:18 Creatinine 3.42 mg/dL (0.70-1.30) H 08/01/23 07:18 Est GFR (CKD-EPI) 18.398 mL/Min 08/01/23 07:18 Glucose 142 mg/dL (70-100) H 08/01/23 07:18 Lactic Acid 1.0 mmol/L (0.5-2.2) 08/01/23 07:17 Calcium 7.6 mg/dL (8.6-10.3) L 08/01/23 07:18 Magnesium 1.8 mg/dL (1.9-2.7) L 08/01/23 07:18 Total Bilirubin 0.4 mg/dl (0.3-1.0) 08/01/23 07:18 AST 23 U/L (13-39) 08/01/23 07:18 ALT 10 U/L (7-52) 08/01/23 07:18 Alkaline Phosphatase 63 U/L (34-104) 08/01/23 07:18 C-Reactive Prot, Quant 7.1 mg/dL (0.0-0.5) H 08/01/23 07:18 B-Natriuretic Peptide 886.0 pg/mL (5-100) H 08/01/23 07:18 Total Protein 5.5 gm/dL (6.4-8.9) L 08/01/23 07:18 Albumin 2.5 gm/dL (3.5-5.7) L 08/01/23 07:18 Globulin 3.0 gm/dL 08/01/23 07:18 Albumin/Globulin Ratio 0.8 08/01/23 07:18 ABG Interpretation ABG results: 08/01/23 06:40 ABG pH 7.39 ABG pCO2 39.0 ABG pO2 75.0 L ABG HCO3 22.9 L ABG Total CO2 24.1 ABG O2 Saturation 94.2 L ABG O2 Content 4.6 L ABG Base Excess -2.0 Assessment & Plan Assessment/Plan (1) Acute hypoxic respiratory failure: (2) Acute pulmonary edema: (3) ESRD (end stage renal disease): (4) Leukocytosis: (5) T2DM (type 2 diabetes mellitus): (6) Hyperlipemia: (7) HTN (hypertension): (8) PAD (peripheral artery disease): (9) SONYA (acute kidney injury): Plan As this H&P is created laboratory work is beginning to come back. His hemoglobin is extremely low at 6.7. Last time he was in the hospital was 8.0. Indices do not show macrocytosis or microcytosis His white blood count is quite good at 10.0. When he left the hospital 6 days ago it was 7.7. ABG is good. pH of 7.39, pCO2 39, pO2 75.0 bicarb a little bit low at 22.9. His metabolic profile has sodium slightly low at 131, BUN 32, creatinine 3.42, glucose 142. Magnesium 1.8. Calcium 7.6 BNP is 886. CRP is high at 7.1, and this is improved from 8.6 and 9.7 and even28.5 that he presented to the hospital with on the first hospital stay. Portable chest x-ray was read as bilateral groundglass opacities. These are patchy and nonspecific. An abdominal x-ray series shows OG tube within the stomach. Assessment: Acute hypoxic respiratory failure Need for mechanical ventilation for respiratory support. Outside hospital concern for flash pulmonary edema. Outside hospital concern for blood clots. Report of influenza A positivity. Severe progressive anemia, most likely related to chronic kidney disease and chronic disease with his recent diabetic foot. Recent severe issues with diabetic foot with kim osteomyelitis, visible bone, requiring a transmetatarsal amputation the previous hospital stay on 07/18/2023. Recent MSSA osteomyelitis of the left forefoot, appears to be treated successfully with a trans metatarsal amputation. Diabetes mellitus type 2, described as brittle, with recent hemoglobin A1c uncontrolled at 8.1. History of peripheral arterial disease with angioplasty to the left lower extremity in the past. History of hypertension. History of dyslipidemia. 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 Plan: Hospital admission, inpatient status. Consult pulmonology. Consult to nephrology. Obtaining an echocardiogram today. He did not have one on the previous hospitalstay. Urgent venous Doppler ultrasound of both lower extremities. Sputum culture. Bio fire nasal PCR test. Propofol for gentle sedation. Sliding scale level 2 for glycemic control. Check fingerstick blood glucoses every 6 hours, or more frequently if he becomeshypoglycemic. Check CBC, BMP, portable chest x-ray, ABG, and EKG daily while on the ventilator. +++ Clinical update: I discussed labs that they were coming back with family members who are in the ICU waiting room. 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 I explained that hemoglobin count has declined to 6.7. His points out that he required 3 units of packed red blood cells on the previous hospital stay. His family members consented to transfusion of blood products today. I did explain that the initial troponin has come back at 1,310. There are no old troponins to compare to in the computer system. Twelve-lead EKG is good with no ST or T wave acute changes. I did explain that we will trend additional troponins at this time. Is difficult to tell if this first troponin is directly related to acute coronary syndrome versus hemodynamic and physiologic strain of the hypoxia, need for ventilator, and anemia. IP vs OBS Justification Based on differential dx, clinical care plan, and risk of adverse events, if untreated, in my clinical judgement this patient requires an acute care setting as: INPATIENT because of an expectation of an over 2 midnight stay. Estimated length of stay (# of days): 10 Documented By: Geo Thomas DO [id number] Signed By: <Electronically signed by Geo Thomas DO> 08/01/23 0839 [facility] Work Phone: [phone]) 220-429802-15-2024 History and physical note Author Arnaldo Thomas [facility] July 11, 2023 7:10am Note Date/Time July 10, 2023 9:02pm [facility] [address] [place] [address] Hospitalist H&P Signed Patient: Sudeep Diego JR MR#: [id number] : 1950 Acct:[id number] Age/Sex: 72 / M Adm Date: 4 Loc: Room: [address] [place] [address] Type: ADM IN Attending Dr: Arnaldo Thomas MD Copies to: MD Arnaldo Alicea MD Paula G Smith, UNIT AID~ HPI DATE OF EXAMINATION: 07/10/23 CHIEF COMPLAINT: foot wound HISTORY OF PRESENT ILLNESS: Mr. Diego is a 72-year-old male with a PMH of T2DM, PVD, PAD, HTN, HLD, angioplasty to LLE the presents to the emergency room tonight for complaints of increased pain, redness and swelling to left foot. 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 He will be admitted to the [facility] telemetry floor under the care of the hospitalist team. Review of Systems Review of Systems Review of systems: A 10 point review of systems was obtained, negative unless noted in the HPI or below. PMFSH Medical History (Updated 07/10/23 @ 22:09 by [...] Occupational Status: retired Recent travel in the [employer] w/in past 28 days: No Meds Medications [...] Neut % (Auto) 84.7 % (.) 07/10/23 19: Lymph % (Auto) 6.5 % (.) 07/10/23 19:09 [place] % (Auto) 8.4 % (.) 07/10/23 19:09 Eos % (Auto) 0.3 % (.) 07/10/23 19:09 Baso % (Auto) 0.1 % (.) 07/10/23 19:09 Nucleat RBC Rel Count 0.0 /100 WBC (0-0.5) 07/10/23 19:09 Neut # (Auto) 27.7 x10E3/uL (1.8-7.7) H 07/10/23 19:09 Lymph # (Auto) 2.1 x10E3/uL (1.00-4.8) 07/10/23 19:09 [place] # (Auto) 2.7 x10E3/uL (0.0-0.8) H 07/10/23 [...] <Electronically signed by Arnaldo Thomas MD> 07/11/23 0721 [facility] Work Phone: [phone]) 467-516902-15-2024 History of Present illness Narrative* Rohan Han DPM - 07/10/2023 4:00 PM EST Patient: Sudeep [...] History: Past Medical History: Diagnosis Date Alcoholism ([facility]) Arthritis Broken ankle, right Broken collarbone Broken neck ([facility]) Bunion Cataract Compression fracture of C-spine ([facility]) 2010 T10-T12 DDD (degenerative disc disease), cervical DDD (degenerative disc disease), lumbar Depression ([facility]) Diabetic ulcer of left midfoot associated with type 2 diabetes mellitus, limited to breakdown of skin ([facility]) DM (diabetes mellitus) ([facility]) Elevated PSA Foot ulcer ([facility]) GERD (gastroesophageal reflux disease) History of elevated prostate specific antigen (PSA) History of medical problems 2010 degenrative change mid/lower thoracic spine Hx of shoulder surgery 2003 Hypertension ([facility]) Lumbar spondylolysis Neuropathy in diabetes ([facility]) Ocular palsy of right eye Osteomyelitis of left foot, unspecified type ([facility]) Prostate cancer ([facility] PSA elevation Pulmonary arterial hypertension ([facility] Substance abuse ([facility]) Type 2 diabetes mellitus with diabetic polyneuropathy, with long-term current use of insulin ([facility]) Vitamin D deficiency Weak urinary stream Medications: [...] left foot and right foot Neuro: 5.07 Kihei Radha monofilament test diminished to digits and [...] possible admission if warranted documented in this encounterMineral Area Regional Medical [id number] History of Present illness Narrative* Rohan Han DPM - 06/26/2023 4:10 PM EST Patient: Sudeep Diego Jr : 1950 PCP: Tejas Stevens MD SUBJECTIVE [...] History: Past Medical History: Diagnosis Date Alcoholism ([facility]) Arthritis Broken ankle, right Broken collarbone Broken neck (CMS/HCC) Bunion Cataract Compression fracture of C-spine (CMS/[facility]) 2010 T10-T12 DDD (degenerative disc disease), cervical DDD (degenerative disc disease), lumbar Depression (CMS/HCC) Diabetic ulcer of left midfoot associated with type 2 diabetes mellitus, limited to breakdown of skin (CMS/HCC) DM (diabetes mellitus) (CMS/HCC) Elevated PSA Foot ulcer (CMS/HCC) GERD (gastroesophageal reflux disease) History of elevated prostate specific antigen (PSA) History of medical problems 2010 degenrative change mid/lower thoracic spine Hx of shoulder surgery 2004 Hypertension ([facility]) Lumbar spondylolysis Neuropathy in diabetes ([facility]) Ocular palsy of right eye Osteomyelitis of left foot, unspecified type ([facility]) Prostate cancer ([facility]) PSA elevation Pulmonary arterial hypertension ([facility] Substance abuse ([facility]) Type 2 diabetes mellitus with diabetic polyneuropathy, with long-term current use of insulin ([facility]) Vitamin D deficiency Weak urinary stream Medications: [...] left foot and right foot Neuro: 5.07 Kihei Radha monofilament test diminished to digits and [...] Foot ulcer, left, with fat layer exposed ([facility]/HCC) 2. DM type 1 with diabetic peripheral neuropathy ([facility]/HCC) 3. PVD (peripheral vascular disease) ([facility]/HCC) 4. Onychomycosis 5. Toe pain, left 6. [...] risks, alternatives, benefits, post op complications and roasterman expectations were discussed including but not limited to: infection,bone infection,wound dehiscence hardware failure and irritation,wound dehiscence,delay union/mal union/non union of bone. RSDS,neuroma,duty limitations,DVT/PE, SD,nerve damage, scar, loss of sensation, swelling. Pt [...] 2023 Rohan Han DPM documented in this encounterMineral Area Regional Medical [id number] Evaluation note* Encounter Date Diagnosis Assessment Notes Treatment Notes Treatment Clinical Notes Jun, Type 2 diabetes mellitus with hyperglycemia (ICD-10 - E11.65) Managing type 2 diabetes material was published 1. Uncontrolled, Type 2 diabetes with A1C of 7.7%. 2. Blood glucose levels above target. According to [employer] cgm download 06/13/23-06/26/23; Avg glucose 153. >250-1%, [...] issues. 6. Prescriptions: BECKIE PAP-Basaglar/Humalog /Trulicity. Drug [facility]-None. DME: Drug [facility]-None. 7. Prescriptions will not be filled unless you are compliant with follow up appointments or have a follow up appointment scheduled as ordered by your provider. Refills should be requested at the time of your visit. 8. Labs ordered, encouraged to have labs done. 01 Feb, 2024 Dietary counseling and surveillance (ICD-10 - Z71.3) Heart healthy diet material was published Jun, HTN (hypertension) (ICD-10 - I10) Managing high blood pressure material was published Jun, [facility] current use of insulin (ICD-10 - Z79.4) [...] - L97.529) keep f/u with Dr. Han Unbabel Other 12-06-2023 Evaluation note* Encounter Date Diagnosis [...] No follow up needed unless things change. Unbabel Other 11-16-2023 Evaluation note* Encounter Date Diagnosis [...] will continue to check markers of inflammation. Unbabel Other 10-26-2023 Evaluation note* Encounter Date Diagnosis [...] hyperglycemia, or diabetes medication issues. 6. Prescriptions: EBCKIE PAP-Basaglar/Humalo g/Trulicity. 2023 BECKIE PAP ANASTASIA completed [...] high blood pressure material was published Feb, manager terminal current use of insulin (ICD-10 - Z79.4) [...] - L97.529) keep f/u with Dr. Han Unbabel Other 10-16-2023 Miscellaneous Notes* Telephone Encounter - Corrine Terrell RN - 03/10/2023 9:44 AM EDT ----- Message from Christine Vargas PA-C sent at 03/07/2023 3:55 PM EDT ----- Regarding: Follow up on outpatient imaging This was a patient we saw as a telestroke consult at [facility]. He had abnormal brain MRI showing midline [...] call to spouse. Imaging is scheduled at [facility]. Will send clinicals to them so they can submit prior authorization. * Telephone Encounter - Corrine Terrell RN - 03/10/2023 9:44 AM EDT Jhonny, can you fax office note to [facility]ology please * Telephone Encounter - Oni Coleman CNA - 03/10/2023 9:44 AM EDT Faxed office note to [facility]. * Telephone Encounter - Corrine Terrell RN - 03/10/2023 9:44 AM EDT Can you see when imaging is scheduled for with [facility] please * Telephone Encounter - Oni Coleman [...] EDT Received and scanned in report into media developer. please advise. * Telephone Encounter - Ml Brenner PA-C - 03/10/2023 9:44 AM EDT Please have Dr. Cummins review MRI brain. Thinking this is meningioma and most appropriate for followup with neurosurgery Ml Brenner PA-C 04/03/231422 * Telephone Encounter - Oni Coleman CNA - 03/10/2023 9:44 AM EDT Called and requested that imaging be sent over. * Telephone Encounter - Corrine Terrell RN - 03/10/2023 9:44 AM EDT Reviewed with Dr. Cummins. Patient needs to see neurosurgery. [facility] Telephone encounter Note* Telephone Encounter - Corrine Terrell RN - 03/10/2023 9:44 AM EDT ----- Message from Christine Vargas PA-C sent at 03/07/2023 3:55 PM EDT ----- Regarding: Follow up on outpatient imaging This was a patient we saw as a telestroke consult at [facility]. He had abnormal brain MRI showing midline [...] We can call them with the results. [facility] Telephone encounter Note* Telephone Encounter - Dorina Pineda - 03/10/2023 9:44 AM EDT Patient's spouse, Rita wanted to inform clinical staff that the their still needs to approve the MRI brain with and without contrast. [facility] Telephone encounter Note* Telephone Encounter - Corrine Terrell RN - 03/10/2023 9:44 AM EDT Returned call to spouse. Imaging is scheduled at [facility]. Will send clinicals to them so they can submit prior authorization. [facility] Telephone encounter Note* Telephone Encounter - Corrine Terrell RN - 03/10/2023 9:44 AM EDT Jhonny, can you fax office note to [facility] please [facility] Telephone encounter Note* Telephone Encounter - Oni Coleman CNA - 03/10/2023 9:44 AM EDT Faxed office note to [facility]. [facility] Telephone encounter Note* Telephone Encounter - Corrine Terrell RN - 03/10/2023 9:44 AM EDT Can you see when imaging is scheduled for with [facility] please [facility] [employer] [id number] Telephone encounter Note* Telephone Encounter - Oni [...] to getting the imaging scheduled. [facility] [employer] [id number] Telephone encounter Note* Telephone Encounter - Oni Coleman CNA - 03/10/2023 9:44 AM EDT Called and got the imaging pushed to us. [facility] [employer] [id number] Telephone encounter Note* Telephone Encounter - Kelly Sullivan - 03/10/2023 9:44 AM EDT Received call today 03/27/23 4:23 from patient's , Rita (HIPAA/PHI contact), to get status update. I informed her of Oni's message below and she voiced understanding. She said nothing neededfurther at this time. [facility] [employer] [id number] Telephone encounter Note* Telephone Encounter - Corrine Terrell RN - 03/10/2023 9:44 AM EDT Nothing yet received. [facility] [employer] [id number] Telephone encounter Note* Telephone Encounter - Oni Coleman CNA - 03/10/2023 9:44 AM EDT Called and requested that imaging be sent over. [facility]10-16-2023 Telephone encounter Note* Telephone Encounter - Oni Coleman CNA - 03/10/2023 9:44 AM EDT Received and scanned in report into media developer. please advise. -[facility] [employer]-16-2023 Telephone encounter Note* Telephone Encounter - Ml Brenner PA-C - 03/10/2023 9:44 AM EDT Please have Dr. Cummins review MRI brain. Thinking this is meningioma and most appropriate for followup with neurosurgery Ml Brenner PA-C 04/03/233 [facility] Work Phone: [phone] Telephone encounter Note* Telephone Encounter - Oni Coleman CNA - 03/10/2023 9:44 AM EDT Called and requested that imaging be sent over. [facility]-16-2023 Telephone encounter Note* Telephone Encounter - Corrine Terrell RN - 03/10/2023 9:44 AM EDT Reviewed with Dr. Cummins. Patient needs to see neurosurgery. [facility]10-10-2023 Hospital Discharge instructionsAmbulatory Orders* Initiate Home Health [...] DM - [facility] - [facility] Phone: [phone] 423-885310-10-2023 Progress note Author Michael Ramírez [facility] March 04, 2023 10:01am Note Date/Time March 04, 2023 1 0:01am [facility] [address] [place] [address] Infect. Disease Progress Note Signed Patient: Sudeep Diego JR MR#: [id number] : 1950 Acct:[id number] Age/Sex: 72 / M Adm Date: 3 Loc: Room: [address] [place] [address] Type: ADM IN Attending Dr: Orestes Mejia [...] 40 Mg Tablet) 40 mg [facility] Stop: 02/23/24 17:14 Last Admin: 03/04/23 09:34 Dose: 40 mg Baclofen (Baclofen 20 Mg Tablet) 20 mg PO Q8H PRN PRN Reason: Muscle Spasm Stop: 02/26/24 19:59 Last Admin: 03/04/23 04:14 Dose: 20 mg Celecoxib (Celecoxib 200 Mg Capsule) 200 mg PO [facility] Stop: 02/24/24 08:59 Last Admin: 03/04/23 09:34 Dose: 200 mg Clopidogrel Bisulfate (Clopidogrel Bisulfate 75 Mg Tablet) 75 mg PO [facility] Stop: 02/23/24 17:14 Last Admin: 02/26/23 14:37 Dose: Not Given Dextrose (Dextrose 50% In Water 25 Gm/50 Ml Syringe) 0 gm IV-PUSH PRN PRN PRN Reason: Hypoglycemia Stop: 02/24/24 12:16 Last Admin: 03/01/23 15:28 Dose: 25 gm Duloxetine HCl (Duloxetine 60 Mg Capsule.Dr) 60 mg PO [facility]ILY [facility] Stop: 02/23/24 17:14 Last Admin: 03/04/23 09:35 Dose: 60 mg Enoxaparin Sodium (Enoxaparin 40 Mg/0.4 Ml Syringe) 40 mg SUBCUT DAILY@10 [facility] Stop: 02/24/24 09:59 Last Admin: 02/26/23 09:49 Dose: Not Given Gabapentin (Gabapentin 800 Mg Tablet) 800 mg PO BID [facility] Stop: 02/27/24 20:59 Last Admin: 03/04/23 09:34 Dose: 800 mg Glucose (Dextrose 40% Gel 15 Gm Tube) 0 gm PO PRN PRN PRN Reason: Hypoglycemia Stop: 02/24/24 12:16 Cefepime HCl (Maxipime) 2 gm in 50 mls @ 100 mls/hr IV Q12H [facility] Last Infusion: 03/04/23 05:00 Dose: Infused Insulin Aspart (Insulin Aspart 300 Units/3 Ml Insuln.Pen) 0 units SUBCUT TID..[facility]; Protocol Stop: 02/24/24 16:59 Last Admin: 03/04/23 09:36 Dose: Not Given Insulin Glargine (Insulin Glargine 300 Units/3 Ml Insuln.Pen) 41 units SUBCUT BID [facility] Stop: 02/24/24 09:59 Last Admin: 03/04/23 09:36 Dose: 21 units Lidocaine HCl (Lidocaine 1% 50 Ml Vial) 0.1 ml INTRADERMA PREOP PRN PRN Reason: Venipuncture x 1 Dose Magnesium Oxide (Magnesium Oxide 400 Mg Tablet) 400 mg PO DAILY [facility] Stop: 02/27/24 09:14 Last Admin: 03/04/23 09:35 Dose: 400 mg Metoprolol Succinate (Metoprolol Succinate 50 Mg Tab.Er.24h) 50 mg PO [facility]ILY [facility] Stop: 02/23/24 17:14 Last Admin: 03/04/23 09:34 Dose: 50 mg Metoprolol Tartrate (Metoprolol Tartrate 5 Mg/5 Ml Vial) 5 mg IV-PUSH Q4H PRN PRN Reason: Blood Pressure Stop: 02/25/24 13:56 Last Admin: 03/04/23 09:56 Dose: 5 mg Nifedipine (Nifedipine Er.24hr 30 Mg Tab.Er.24) 30 mg PO [facility]ILY [facility] Stop: 03/03/24 08:59 Last Admin: 03/04/23 09:56 Dose: 30 mg Ondansetron HCl (Ondansetron 4 Mg/2 Ml Vial) 4 mg IV Q4HR PRN PRN Reason: NAUSEA AND VOMITING Stop: 02/27/24 22:50 Last Admin: 02/27/23 23:00 Dose: 4 mg Saccharomyces Boulardii (Saccharomyces Boulardii 250 Mg Capsule) 250 mg PO BID.WITH.MEALS [facility] Stop: 02/26/24 17:39 Last Admin: 03/04/23 09:34 [...] ordered. Documented By: Michael Ramírez MD 03/04/23 8764 Signed By: <Electronically signed by MD Michael Ramírez> 03/04/23 1007 [facility] Work Phone: [phone] Progress note Author Orestes Mejia [facility] March 03, 2023 5:32pm Note Date/Time March 03, 2023 5: 32pm [facility] [address] [place] [address] Hospitalist Progress Note Signed Patient: Sudeep Diego JR MR#: [id number] : 1950 Acct:[id number] Age/Sex: 72 / M Adm Date: 3 Loc: 4N Room: 0I1968-0 Type: ADM IN Attending Dr: Orestes Mejia [...] 02/23/23 17:15 03/03/23 09:03 Duloxetine 60 Mg Capsule. PO 02/23/24 17:14 [...] the Pseudomonas. Documented By: Orestes Mejia DO 03/03/231727 Signed By: <Electronically signed by Orestes Mejia DO> 03/03/231731 [facility] Work Phone: [phone] Progress note Author Michael Ramírez [facility] March 03, 2023 9:11am Note Date/Time March 03, 2023 9: 09am [facility] [address] [place] [address] Infect. Disease Progress Note Signed Patient: Sudeep Diego JR MR#: [id number] : 1950 Acct:[id number] Age/Sex: 72 / M Adm Date: 3 Loc: 4N Room: 4Y5292-2 Type: ADM IN Attending Dr: Orestes Mejia DO Copies to: ~ Date of Service: 03/03/2023 Subjective Interval history: Patient is doing well and over the weekend states his diarrhea has improved. Sarah switch to cefepime based on Pseudomonas final [...] 40 Mg Tablet) 40 mg PO [facility]ILY [facility] Stop: 02/23/24 17:14 Last Admin: 03/02/23 [...] 75 Mg Tablet) 75 mg PO [facility]ILY [facility] Stop: 02/23/24 17:14 Last Admin: 02/26/23 [...] BID [facility] Stop: 02/27/24 20:59 Last Admin: 03/02/23 21:37 Dose: 800 mg Glucose (Dextrose 40% Gel 15 Gm Tube) 0 gm PO PRN PRN PRN Reason: Hypoglycemia Stop: 02/24/24 12:16 Cefepime HCl (Maxipime) 2 gm in 50 mls @ 100 mls/hr IV Q12H [facility] Last Admin: 03/03/23 05:26 Dose: 100 mls/hr Insulin Aspart (Insulin Aspart 300 Units/3 Ml Insuln.Pen) 0 units SUBCUT TID.AC.[facility]; Protocol Stop: 02/24/24 16:59 Last Admin: 03/03/23 08:00 Dose: Not Given Insulin Glargine (Insulin Glargine 300 Units/3 Ml Insuln.Pen) 41 units SUBCUT BID [facility] Stop: 02/24/24 09:59 Last Admin: 03/02/23 21:39 Dose: 21 units Lidocaine HCl (Lidocaine 1% 50 Ml Vial) 0.1 ml INTRADERMA PREOP PRN PRN Reason: Venipuncture x 1 Dose Magnesium Oxide (Magnesium Oxide 400 Mg Tablet) 400 mg PO [facility]ILY [facility] Stop: 02/27/24 09:14 Last Admin: 03/02/23 09:37 Dose: 400 mg Metoprolol Succinate (Metoprolol Succinate 50 Mg Tab.Er.24h) 50 mg PO DAILY [facility] Stop: 02/23/24 17:14 Last Admin: 03/02/23 [...] 250 Mg Capsule) 250 mg PO BID.WITH.[facility]ALS [facility] Stop: 02/26/24 17:39 Last Admin: 03/02/23 17:09 [...] <Electronically signed by MD Michael Ramírez> 03/03/23910 [facility] Work Phone: [phone] Progress note Author Eulogio Ruvalcaba [facility] March 02, 2023 6:37pm Note Date/Time March 02, 2023 6: 31pm [facility] [address] [place] [address] Hospitalist Progress Note Signed Patient: Sudeep Diego JR MR#: [id number] : 1950 Acct:[id number] Age/Sex: 72 / M Adm Date: 3 Loc: 4N Room: [address] [place] [address] Type: ADM IN Attending Dr: Eulogio Ruvalcaba [...] Pain Atorvastatin Calcium 40 mg 02/23/23 17:15 03/02/23 09:37 Atorvastatin 40 Mg Tablet PO 02/23/24 [...] Insuln.Pen SUBCUT 02/24/24 16:59 Not Given TID.AC[facility] Protocol Insulin Glargine 41 units 02/24/23 [...] By: <Electronically signed by Eulogio Ruvalcaba MD> 03/02/231836 [facility] Work Phone: [phone] 842-802510-07-2023 Progress note Author Eulogio Ruvalcaba [facility] March 01, 2023 6:17pm Note Date/Time March 01, 2023 6: 13pm [facility] [address] [place] [address] Hospitalist Progress Note Signed Patient: Sudeep Diego JR MR#: [id number] : 1950 Acct:[id number] Age/Sex: 72 / M Adm Date: 3 Loc: 4N Room: [address] [place] [address] Type: ADM IN Attending Dr: Eulogio Ruvalcaba [...] 02/23/23 17:15 03/01/23 08:50 Duloxetine 60 Mg Capsule.Dr PO 02/23/24 17:14 [...] 50 mls @ 100 mls/hr 03/01/23 17:00 03/01/23 17:34 Maxipime IV 100 mls/hr Q12H [facility] Administration Insulin Aspart 0 units 02/24/23 17:00 03/01/23 17:34 Insulin Aspart 300 Units/3 Ml Insuln.Pen SUBCUT 02/24/24 16:59 Not Given TID.AC.[facility] Protocol Insulin Glargine 41 units 02/24/23 [...] <Electronically signed by Eulogio Ruvalcaba MD> 03/01/231816 [facility] Work Phone: [phone] Progress note Author Geo Thomas [facility] February 28, 2023 12:46pm Note Date/Time February 28, 2023 12 :46pm [facility] [address] [place] [address] Hospitalist Progress Note Signed Patient: Sudeep Diego JR MR#: [id number] : 1950 Acct:[id number] Age/Sex: 72 / M Adm Date: 3 Loc: Room: [address] [place] [address] Type: ADM IN Attending Dr: Geo Thomas [...] signed by Geo Thomas DO> 02/28/23 1246 [facility] Work Phone: [phone] Progress note Author Michael Ramírez [facility] February 28, 2023 11:51am Note Date/Time February 28, 2023 9: 04am [facility] [address] [place] [address] Infect. Disease Progress Note Signed Patient: Sudeep Diego JR MR#: [id number] : 1950 Acct:[id number] Age/Sex: 72 / M Adm Date: 3 Loc: 4N Room: [address] [place] [address] Type: ADM IN Attending Dr: Geo Thomas [...] 60 Mg Capsule.Dr) 60 mg PO DAILY [facility] Stop: 02/23/24 17:14 Last Admin: 02/28/23 08:05 Dose: 60 mg Enoxaparin Sodium (Enoxaparin 40 Mg/0.4 Ml Syringe) 40 mg SUBCUT DAILY@10 [facility] Stop: 02/24/24 09:59 Last Admin: 02/26/23 09:49 Dose: Not Given Gabapentin (Gabapentin 800 Mg Tablet) 800 mg PO BID [facility] Stop: 02/27/24 20:59 Last Admin: 02/28/23 08:04 [...] 300 Units/3 Ml Insuln.Pen) 0 units SUBCUT TID.AC.[facility]; Protocol Stop: 02/24/24 16:59 Last Admin: 02/28/23 07:59 Dose: Not Given Insulin Glargine (Insulin Glargine 300 Units/3 Ml Insuln.Pen) 41 units SUBCUT BID [facility] Stop: 02/24/24 09:59 Last Admin: 02/28/23 08:05 Dose: 41 units Lidocaine HCl (Lidocaine 1% 50 Ml Vial) 0.1 ml INTRADERMA PREOP PRN PRN Reason: Venipuncture x 1 Dose Magnesium Oxide (Magnesium Oxide 400 Mg Tablet) 400 mg PO DAILY [facility] Stop: 02/27/24 09:14 Last Admin: 02/28/23 08:05 Dose: 400 mg Metoprolol Succinate (Metoprolol Succinate 50 Mg Tab.Er.24h) 50 mg PO DAILY [facility] Stop: 02/23/24 17:14 Last Admin: 02/28/23 [...] BID.WITH.MEALS [facility] Stop: 02/26/24 17:39 Last Admin: 02/28/23 08:05 [...] <Electronically signed by MD Michael Ramírez> 02/28/23 1152 [facility] Work Phone: [phone] Progress note Author Rohan Han [facility] February 28, 2023 8:08am Note Date/Time February 28, 2023 8: 08am [facility] [address] [place] [address] Podiatry Progress Note Signed Patient: Sudeep Diego JR MR#: [id number] : 1950 Acct:[id number] Age/Sex: 72 / M Adm Date: 3 Loc: 4N Room: [address] [place] [address] Type: ADM IN Attending Dr: Geo Thomas [...] have while in house and also may [facility] to continue while at home. Ordered [facility] wound VAC at 125 mmHg continuous to [...] week. Documented By: Rohan Han DPM 02/28/23 08 Signed By: <Electronically signed by TOY Han> 02/28/23 0808 [facility] Work Phone: [phone] Progress note Author Geo Thomas [facility] February 27, 2023 12:05pm Note Date/Time February 27, 2023 12 :05pm [facility] [address] [place] [address] Hospitalist Progress Note Signed Patient: Sudeep Diego JR MR#: [id number] : 1950 Acct:[id number] Age/Sex: 72 / M Adm Date: 3 Loc: 4N Room: [address] [place] [address] Type: ADM IN Attending Dr: Geo Thomas [...] 1202 Signed By: <Electronically signed by Geo Thomas, > 02/27/23 1205 [facility] Work Phone: [phone] Progress note Author Michael Ramírez [facility] February 27, 2023 11:11am Note Date/Time February 27, 2023 8: 35am [facility] [address] [place] [address] Infect. Disease Progress Note Signed Patient: Sudeep Diego JR MR#: [id number] : 1950 Acct:[id number] Age/Sex: 72 / M Adm Date: 3 Loc: 4N Room: [address] [place] [address] Type: ADM IN Attending Dr: Geo Thomas [...] 75 Mg Tablet) 75 mg PO [facility]ILY [facility] Stop: 02/23/24 17:14 Last Admin: 02/26/23 14:37 Dose: Not Given Dextrose (Dextrose 50% In Water 25 Gm/50 Ml Syringe) 0 gm IV-PUSH PRN PRN PRN Reason: Hypoglycemia Stop: 02/24/24 12:16 Duloxetine HCl (Duloxetine 60 Mg Capsule.Dr) 60 mg PO DAILY [facility] Stop: 02/23/24 17:14 Last Admin: 02/27/23 08:00 Dose: 60 mg Enoxaparin Sodium (Enoxaparin 40 Mg/0.4 Ml Syringe) 40 mg SUBCUT DAILY@10 [facility] Stop: 02/24/24 09:59 Last Admin: 02/26/23 09:49 Dose: Not Given Gabapentin (Gabapentin 800 Mg Tablet) 800 mg PO TID [facility] Stop: 02/23/24 21:59 Last Admin: 02/27/23 08:00 Dose: 800 mg Glucose (Dextrose 40% Gel 15 Gm Tube) 0 gm PO PRN PRN PRN Reason: Hypoglycemia Stop: 02/24/24 12:16 Hydrochlorothiazide (Hydrochlorothiazide 25 Mg Tablet) 25 mg PO DAILY [facility] Stop: 02/26/24 08:59 Last Admin: 02/27/23 08:00 Dose: 25 mg Piperacillin Sod/Tazobactam Sod (Zosyn) 3.375 gm in 100 mls @ 200 mls/hr IV Q6HSCH Last Admin: 02/27/23 08:00 Dose: 200 mls/hr Insulin Aspart (Insulin Aspart 300 Units/3 Ml Insuln.Pen) 0 units SUBCUT TID.AC.[facility]; Protocol Stop: 02/24/24 16:59 Last Admin: 02/27/23 07:57 Dose: Not Given Insulin Glargine (Insulin Glargine 300 Units/3 Ml Insuln.Pen) 41 units SUBCUT BID [facility] Stop: 02/24/24 09:59 Last Admin: 02/27/23 08:00 Dose: 41 units Lidocaine HCl (Lidocaine 1% 50 Ml Vial) 0.1 ml INTRADERMA PREOP PRN PRN Reason: Venipuncture x 1 Dose Metoprolol Succinate (Metoprolol Succinate 50 Mg Tab.Er.24h) 50 mg PO DAILY [facility] Stop: 02/23/24 17:14 Last Admin: 02/27/23 08:00 Dose: 50 mg Metoprolol Tartrate (Metoprolol Tartrate 5 Mg/5 Ml Vial) 5 mg IV-PUSH Q4H PRN PRN Reason: Blood Pressure Stop: 02/25/24 13:56 Last Admin: 02/26/23 05:12 Dose: 5 mg Saccharomyces Boulardii (Saccharomyces Boulardii 250 Mg Capsule) 250 mg PO BID.WITH[facility] Stop: 02/26/24 17:39 Last Admin: 02/27/23 08:00 [...] and left fifth digit yesterday by Dr. Han. Deep wound cultures were [...] <Electronically signed by MD Michael Ramírez> 02/27/[address] [place] [address] Work Phone: [phone] 263-225210-04-2023 Progress note Author Rohan Han [facility] February 26, 2023 6:32pm Note Date/Time February 26, 2023 6: 33pm [facility] [address] [place] [address] Podiatry Progress Note Signed Patient: Sudeep Diego JR MR#: [id number] : 1950 Acct:[id number] Age/Sex: 72 / M Adm Date: 3 Loc: 4N Room: [id number] Type: ADM IN Attending Dr: Geo Thomas [...] <Electronically signed by TOY Han> 02/26/23 183 [facility] Work Phone: [phone] Progress note Author Geo Thomas [facility] February 26, 2023 5:36pm Note Date/Time February 26, 2023 5: 28pm [facility] [address] [place] [address] Hospitalist Progress Note Signed Patient: Sudeep Diego JR MR#: [id number] : 1950 Acct:[id number] Age/Sex: 72 / M Adm Date: 3 Loc: Room: [address] [place] [address] Type: ADM IN Attending Dr: Geo Thomas [...] 02/23/23 17:15 02/26/23 14:37 Duloxetine 60 Mg Capsule. PO 02/23/24 17:14 Not Given DAILY [facility] [...] 1,000 Ml IV 02/23/24 17:14 Not Given .[id number] [facility] Piperacillin Sod/Tazobactam Sod 3.375 gm in [...] By: <Electronically signed by Geo Thomas DO> 02/26/23 8982 [facility] Work Phone: [phone] Progress note Author Michael Ramírez [facility] February 26, 2023 8:46am Note Date/Time February 26, 2023 8: 46am [facility] [address] [place] [address] Infect. Disease Progress Note Signed Patient: Sudeep Diego JR MR#: [id number] : 1950 Acct:[id number] Age/Sex: 72 / M Adm Date: 3 Loc: 4N Room: [address] [place] [address] Type: ADM IN Attending Dr: Geo Thomas [...] 200 Mg Capsule) 200 mg PO [facility] Stop: 02/24/24 08:59 Last Admin: 02/25/23 08:29 Dose: 200 mg Clopidogrel Bisulfate (Clopidogrel Bisulfate 75 Mg Tablet) 75 mg PO DAILY [facility] Stop: 02/23/24 17:14 Last Admin: 02/25/23 08:29 Dose: 75 mg Dextrose (Dextrose 50% In Water 25 Gm/50 Ml Syringe) 0 gm IV-PUSH PRN PRN PRN Reason: Hypoglycemia Stop: 02/24/24 12:16 Duloxetine HCl (Duloxetine 60 Mg Capsule.Dr) 60 mg PO [facility] Stop: 02/23/24 17:14 Last Admin: 02/25/23 08:29 Dose: 60 mg Enoxaparin Sodium (Enoxaparin 40 Mg/0.4 Ml Syringe) 40 mg SUBCUT DAILY@10 [facility] Stop: 02/24/24 09:59 Last Admin: 02/25/23 11:26 Dose: 40 mg Gabapentin (Gabapentin 800 Mg Tablet) 800 mg PO TID [facility] Stop: 02/23/24 21:59 Last Admin: 02/25/23 21:52 Dose: 800 mg Glucose (Dextrose 40% Gel 15 Gm Tube) 0 gm PO PRN PRN PRN Reason: Hypoglycemia Stop: 02/24/24 12:16 Hydralazine HCl (Hydralazine 20 Mg/Ml Vial) 10 mg IV-PUSH Q4H PRN PRN Reason: Hypertension Stop: 02/25/24 13:56 Last Admin: 02/26/23 03:37 Dose: 10 mg Hydrochlorothiazide (Hydrochlorothiazide 25 Mg Tablet) 25 mg PO DAILY [facility] Stop: 02/26/24 08:59 Sodium Chloride (0.9% Sodium Chloride 1,000 Ml) 1,000 mls @ 75 mls/hr IV .[id number] [facility] Stop: 02/23/24 17:14 Last Admin: 02/25/23 21:53 Dose: Not Given Piperacillin Sod/Tazobactam Sod (Zosyn) 3.375 gm in 100 mls @ 200 mls/hr IV Q6HSCH Last Admin: 02/26/23 02:43 Dose: 200 mls/hr Vancomycin HCl 1.25 gm/ (Dextrose) 275 mls @ 183.333 mls/hr IV Q12H [facility] Stop: 02/24/24 00:59 Last Admin: 02/26/23 00:41 Dose: 183.33 mls/hr Lactated Ringer's (Lactated Ringers) 1,000 mls @ 20 mls/hr IV .Q24H [facility] Stop: 02/26/23 20:28 Last Admin: 02/25/23 20:39 Dose: Not Given Insulin Aspart (Insulin Aspart 300 Units/3 Ml Insuln.Pen) 0 units SUBCUT TID..[facility]; Protocol Stop: 02/24/24 16:59 Last Admin: 02/25/23 21:52 Dose: 1 units Insulin Glargine (Insulin Glargine 300 Units/3 Ml Insuln.Pen) 41 units SUBCUT BID [facility] Stop: 02/24/24 09:59 Last Admin: 02/25/23 21:52 Dose: 41 units Lidocaine HCl (Lidocaine 1% 50 Ml Vial) 0.1 ml INTRADERMA PREOP PRN PRN Reason: Venipuncture x 1 Dose Metoprolol Succinate (Metoprolol Succinate 50 Mg Tab.Er.24h) 50 mg PO DAILY [facility] Stop: 02/23/24 17:14 Last Admin: 02/25/23 [...] <Electronically signed by MD Michael Ramírez> 02/26/23845 [facility] Work Phone: [phone] Progress note Author Geo Thomas [facility] February 25, 2023 2:21pm Note Date/Time February 25, 2023 1: 04pm [facility] [address] [place] [address] Hospitalist Progress Note Signed Patient: Sudeep Diego JR MR#: [id number] : 1950 Acct:[id number] Age/Sex: 72 / M Adm Date: 3 Loc: 4N Room: [address] [place] [address] Type: ADM IN Attending Dr: Geo Thomas [...] 02/23/23 17:15 02/25/23 08:29 Duloxetine 60 Mg Capsule. PO 02/23/24 17:14 [...] 1,000 Ml IV 02/23/24 17:14 75 mls/hr .[id number] [facility] Administration Piperacillin Sod/Tazobactam Sod 3.375 gm [...] Ml Insuln.Pen SUBCUT 02/24/24 16:59 Not Given TID.AC.[facility] Protocol Insulin Glargine 41 units 02/24/23 [...] signed by Geo Thomas DO> 02/25/23 1421 [facility] Work Phone: [phone] Progress note Author Michael Ramírez [facility] February 25, 2023 10:41am Note Date/Time February 25, 2023 9: 08am [facility] [address] [place] [address] Infect. Disease Progress Note Signed Patient: Sudeep Diego JR MR#: [id number] : 1950 Acct:[id number] Age/Sex: 72 / M Adm Date: 3 Loc: 4N Room: 5Q9049-9 Type: ADM IN Attending Dr: Geo Thomas [...] 60 Mg Capsule.Dr) 60 mg PO DAILY [facility] Stop: 02/23/24 17:14 Last Admin: 02/25/23 08:29 Dose: 60 mg Enoxaparin Sodium (Enoxaparin 40 Mg/0.4 Ml Syringe) 40 mg SUBCUT DAILY@10 [facility] Stop: 02/24/24 09:59 Last Admin: 02/24/23 10:16 Dose: 40 mg Gabapentin (Gabapentin 800 Mg Tablet) 800 mg PO TID [facility] Stop: 02/23/24 21:59 Last Admin: 02/25/23 08:29 Dose: 800 mg Glucose (Dextrose 40% Gel 15 Gm Tube) 0 gm PO PRN PRN PRN Reason: Hypoglycemia Stop: 02/24/24 12:16 Sodium Chloride (0.9% Sodium Chloride 1,000 Ml) 1,000 mls @ 75 mls/hr IV .[id number] [facility] Stop: 02/23/24 17:14 Last Admin: 02/25/23 01:43 Dose: 75 mls/hr Piperacillin Sod/Tazobactam Sod (Zosyn) 3.375 gm in 100 mls @ 200 mls/hr IV Q6HSCH Last Admin: 02/25/23 08:29 Dose: 200 mls/hr Vancomycin HCl 1.25 gm/ (Dextrose) 275 mls @ 183.333 mls/hr IV Q12H [facility] Stop: 02/24/24 00:59 Last Admin: 02/25/23 01:43 Dose: 183.33 mls/hr Insulin Aspart (Insulin Aspart 300 Units/3 Ml Insuln.Pen) 0 units SUBCUT TID.AC.[facility]; Protocol Stop: 02/24/24 16:59 Last Admin: 02/25/23 08:33 Dose: Not Given Insulin Glargine (Insulin Glargine 300 Units/3 Ml Insuln.Pen) 41 units SUBCUT BID [facility] Stop: 02/24/24 09:59 Last Admin: 02/24/23 20:55 Dose: 41 units Metoprolol Succinate (Metoprolol Succinate 50 Mg Tab.Er.24h) 50 mg PO DAILY [facility] Stop: 02/23/24 17:14 Last Admin: 02/25/23 [...] each IV ONCE PRN; Protocol PRN Reason: [place].Pharmacy Consult A&P - Infectious Disease Assessment/Plan (1) [...] is still pending. Documented By: Gabino Hyman DO,RES 02/25/23 090 4 Signed By: <Electronically signed by DO KELLE Hyman> 02/25/23 0908 <Electronically signed by MD Michael Ramírez> 02/25/23 1041 [facility] Work Phone: 1(467) 332-987210-02-2023 Consult note Author Dhruv Bautista [facility] February 24, 2023 4:15pm Note Date/Time February 24, 2023 8: 50am [facility] [address] [place] [address] Vascular Surgery Consult Note Signed Patient: Sudeep Diego JR MR#: [id number] : 1950 Acct:[id number] Age/Sex: 72 / M Adm Date: 3 Loc: 4N Room: [address] [place] [address] Type: ADM IN Attending Dr: Brennan Cerrato [...] negative unless noted below or in HPI COUNTS INCLUDE 234 BEDS AT THE [facility] Medical History Singh's palsy Cataract Diabetes GERD [...] % (Auto) 69.6 Lymph % (Auto) 18.7 [place] % (Auto) 10.0 Eos % (Auto) 1.1 Baso % (Auto) 0.6 Nucleat RBC Rel Count 0.1 Neut # (Auto) 9.0 H Lymph # (Auto) 2.4 [place] # (Auto) 1.3 H Eos # (Auto) [...] 8.2 Neut % (Auto) Lymph % (Auto) [place] % (Auto) Eos % (Auto) Baso % (Auto) Nucleat RBC Rel Count Neut # (Auto) Lymph # (Auto) [place] # (Auto) Eos # (Auto) Baso # [...] <Electronically signed by MD Dhruv Bautista> 02/24/23 3645 [facility] Work Phone: 1(473) 389-838510-02-2023 Consult note Author Rohan Han [facility] February 24, 2023 3:50pm Note Date/Time February 24, 2023 3: 45pm [facility] [address] [place] [address] Podiatry Consult Note Signed Patient: Sudeep Diego JR MR#: [id number] : 1950 Acct:[id number] Age/Sex: 72 / M Adm Date: 3 Loc: 4N Room: [address] [place] [address] Type: ADM IN Attending Dr: Brennan Cerrato [...] but denies any current aches and pains PMFSH Medical History Singh's palsy Cataract Diabetes GERD [...] By: <Electronically signed by TOY Han> 02/24/23 1551 [facility] Work Phone: [phone]) [id number] Progress note Author Brennan Cerrato [facility] February 24, 2023 12:34pm Note Date/Time February 24, 2023 12 :34pm [facility] [address] [place] [address] Hospitalist Progress Note Signed Patient: Sudeep Diego JR MR#: [id number] : 1950 Acct:[id number] Age/Sex: 72 / M Adm Date: 3 Loc: Room: [address] [place] [address] Type: ADM IN Attending Dr: Brennan Cerrato [...] 02/23/23 17:15 02/24/23 08:44 Duloxetine 60 Mg Capsule. PO 02/23/24 17:14 [...] 1,000 Ml IV 02/23/24 17:14 75 mls/hr .[id number] KACI Administration Piperacillin Sod/Tazobactam Sod 3.375 gm in 100 mls @ 200 mls/hr 02/23/23 20:30 02/24/23 08:46 Zosyn IV 200 mls/hr Q6H KACI Administration Vancomycin HCl 1.25 gm/ 275 mls @ 183.333 mls/hr 02/24/23 01:00 02/24/23 00:55 Dextrose IV 02/24/24 00:59 183.33 mls/hr Q12H KACI Administration Insulin Aspart 0 units 02/24/23 17:00 Insulin Aspart 300 Units/3 Ml Insuln.Pen SUBCUT 02/24/24 16:59 TID.AC.HS KACI Protocol Insulin Glargine 41 units 02/24/23 10:00 [...] r/o osteomyelitis Documented By: Brennan Cerrato MD 02/24/231232 Signed By: <Electronically signed by Brennan Cerrato MD> 02/24/23 [facility] Work Phone: 1(546) 309-174310-02-2023 History and physical note Author Brennan Cerrato [facility] February 24, 2023 11:20am Note Date/Time February 23, 2023 4: 59pm [facility] [address] [place] [address] Hospitalist H&P Signed Patient: Sudeep Diego JR MR#: [id number] : 1950 Acct:[id number] Age/Sex: 72 / M Adm Date: 3 Loc: 4N Room: [address] [place] [address] Type: ADM IN Attending Dr: Brennan Cerrato [...] negative unless noted below or in HPI COUNTS INCLUDE 234 BEDS AT THE [facility] Medical History Singh's palsy Cataract Diabetes GERD [...] % (Auto) 18.7 % (.) 02/23/23 12:05 [place] % (Auto) 10.0 % (.) 02/23/23 12:05 Eos % (Auto) 1.1 % (.) 02/23/23 12:05 Baso % (Auto) 0.6 % (.) 02/23/23 12:05 Nucleat RBC Rel Count 0.1 /100 WBC (0-0.5) 02/23/23 12:05 Neut # (Auto) 9.0 x10E3/uL (1.8-7.7) H 02/23/23 12:05 Lymph # (Auto) 2.4 x10E3/uL (1.00-4.8) 02/23/23 12:05 [place] # (Auto) 1.3 x10E3/uL (0.0-0.8) H 02/23/23 [...] 3 Documented By: Brennan Cerrato MD 02/23/23 6314 Signed By: <Electronically signed by Brennan Cerrato MD> 02/24/23 0368 [facility] Work Phone: 1(867) 379-940210-02-2023 Consult note Author Michael Ramírez [facility] February 24, 2023 10:47am Note Date/Time February 24, 2023 8: 47am [facility] [address] [place] [address] Infect. 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 Han) office on (02/20/2023) and he [...] and no additional complaints, except as documented COUNTS INCLUDE 234 BEDS AT THE [facility] Medical History Singh's palsy Cataract Diabetes GERD [...] 200 Mg Capsule) 200 mg PO DAILY [facility] Stop: 02/24/24 08:59 Clopidogrel Bisulfate (Clopidogrel Bisulfate 75 Mg Tablet) 75 mg PO DAILY KACI Stop: 02/23/24 17:14 Last Admin: 02/23/23 18:35 Dose: 75 mg Duloxetine HCl (Duloxetine 60 Mg Capsule.Dr) 60 mg PO DAILY KACI Stop: 02/23/24 17:14 Last Admin: 02/23/23 18:42 Dose: 60 mg Enoxaparin Sodium (Enoxaparin 40 Mg/0.4 Ml Syringe) 40 mg SUBCUT DAILY@10 [facility] Stop: 02/24/24 09:59 Gabapentin (Gabapentin 800 Mg Tablet) 800 mg PO TID [facility] Stop: 02/23/24 21:59 Last Admin: 02/23/23 21:11 Dose: 800 mg Sodium Chloride (0.9% Sodium Chloride 1,000 Ml) 1,000 mls @ 75 mls/hr IV .[id number] [facility] Stop: 02/23/24 17:14 Last Admin: 02/23/23 19:00 Dose: 75 mls/hr Piperacillin Sod/Tazobactam Sod (Zosyn) 3.375 gm in 100 mls @ 200 mls/hr IV Q6HSCH Last Admin: 02/24/23 03:06 Dose: 200 mls/hr Vancomycin HCl 1.25 gm/ (Dextrose) 275 mls @ 183.333 mls/hr IV Q12H [facility] Stop: 02/24/24 00:59 Last Admin: 02/24/23 00:55 Dose: 183.33 mls/hr Insulin Glargine (Insulin Glargine 300 Units/3 Ml Insuln.Pen) 40 units SUBCUT 2XD [facility] Stop: 02/23/24 20:29 Metoprolol Succinate (Metoprolol Succinate 50 Mg Tab.Er.24h) 50 mg PO DAILY [facility] Stop: 02/23/24 17:14 Last Admin: 02/23/23 18:35 [...] plan of care. Documented By: Gabino Hyman DO,KELLE 02/24/23 084 5 Signed By: <Electronically signed by DO KELLE Hyman> 02/24/23 0955 <Electronically signed by MD Michael Ramírez> 02/24/23 1049 [facility] Work Phone: 1(562) 683-316009-11-2023 Evaluation note* Encounter Date Diagnosis Assessment Notes Treatment Notes Treatment Clinical Notes Jan, PAD (peripheral artery disease) (ICD-10 - I73.9) Jan, Ulcer of left foot, unspecified ulcer stage (ICD-10 - L97.529) Jan, Other Patient did get good oriental orthodox of flow to the left foot with [...] in a few weeks for wound check [employer] Other 08-18-2023 Evaluation note* Encounter Date Diagnosis [...] on the schedule in the near future. [employer] Other 03-01-2023 Evaluation note* Encounter Date Diagnosis Assessment Notes Treatment Notes Treatment Clinical Notes Jul, Type 2 diabetes mellitus with hyperglycemia (ICD-10 - E11.65) Managing type 2 diabetes material was published 1. Uncontrolled, Type 2 diabetes with A1C of 9.0% GMI 7.6% today. 2. Blood glucose levels improved. According to [facility] download 07/11/2022-07/24/2022: Avg glucose 180. >250-11%, >180-33%, [...] diabetes medication issues. 6. Prescriptions: Pap from [employer] for basaglar/humalog/tr ulicity. 7. Prescriptions will not [...] f/u with pcp for further recommendation Jul, manager terminal current use of insulin (ICD-10 - Z79.4) [...] last visit, continue with weight loss efforts [employer] Other 09-14-2022 Evaluation note* Encounter Date Diagnosis Assessment Notes Treatment Notes Treatment Clinical Notes Jan, Type 2 diabetes mellitus with hyperglycemia (ICD-10 - E11.65) Managing type 2 diabetes material was published 1. Uncontrolled, Type 2 diabetes with A1C of 8.5% 2. Blood glucose levels improved from last vist a1c 11% 08/23/21. According to [facility] download 01/24/2022-02/06/2022: Avg glucose 200. >250-15%, >180-50%, 70-180-35%, <70-0%, <54-0%. CV 22.6%. Reviewed download with pt, glucose improved, remain above target. Discussed with pt increasing trulicity dose from 1.5 to 3mg once weekly. Pt agreeable. Will send rx request to [facility]. Reviewed with pt how to tirate basal/bolus [...] diabetes medication issues. 6. Prescriptions: Pap from [employer] for basaglar/humalog/tr ulicity- increase trulicity to 3mg once weekly. Jan, Dietary counseling and surveillance (ICD-10 - Z71.3) Heart healthy diet material was published Jan, HTN (hypertension) (ICD-10 - I10) Managing high blood pressure material was published uncontrolled- f/u with pcp for further recommendation Jan, manager terminal current use of insulin (ICD-10 - Z79.4) [...] last visit, continue with weight loss efforts [employer] Other 07-12-2022 Evaluation note* Encounter Date Diagnosis Assessment Notes Treatment Notes Treatment Clinical Notes Nov, Type 2 diabetes mellitus with hyperglycemia (ICD-10 - E11.65) [employer] Other 03-31-2022 Evaluation note* Encounter Date Diagnosis [...] pap for 1.5mg dose. 7. 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 768 on statin Jul, BMI 36.0-36.9,adult (ICD-10 - Z68.36) Setting weight-loss goals material was published see above [employer] Other 11-09-2021 Evaluation note* Encounter Date Diagnosis [...] Pt getting pap from [facility] for basaglar/humalog. Mar, Vitamin D deficiency (ICD-10 - E55.9) Vitamin D: let the sun shine material was published 07/2020 Vit. D 26.1 recommend otc vit d 1000 units once daily. Mar, Dietary counseling and surveillance (ICD-10 - Z71.3) Heart healthy diet material was published Mar, HTN (hypertension) (ICD-10 - I10) Managing high blood pressure material was published Mar, manager terminal current use of insulin (ICD-10 - Z79.4) Mar, Hypoglycemia associated with type 2 diabetes mellitus (ICD-10 - E11.649) Diabetes and foot care material was published see above Mar, Mixed hyperlipidemia (ICD-10 - E78.2) Cholesterol-low ering diet material was published 07/2020 ldl 118, trig. 768 on statin Mar, BMI 31.0-31.9,adult (ICD-10 - Z68.31) Setting weight-loss goals material was published see above [employer] Other 09-30-2021 Evaluation note* Encounter Date Diagnosis [...] He was given rx assist application through [employer] will send order for basaglar to take [...] high blood pressure material was published Jan, manager terminal current use of insulin (ICD-10 - Z79.4) [...] Z68.30) Setting weight-loss goals material was published [employer] Other 09-01-2013 History general Narrative - Reported* Type Description Date Medical History PROSTATE CANCER Medical History DM2 Medical History GERD Medical History HTN Medical History NEUROPATHY Surgical History prostate surgery for cancer 01/25 013 Surgical History cholecystectomy 2010 Surgical History hernia repair 2009 Surgical History circumcision 11/2019 Hospitalization History SEE ABOVE SURGERY [employer] Other Consult note Author Giovanni Ni [facility] July 11, 2023 9:05am Note Date/Time July 11, 2023 9:05am [facility] [address] [place] [address] Vascular Surgery Consult Note Signed Patient: Sudeep Diego JR MR#: [id number] : 1950 Acct:[id number] Age/Sex: 72 / M Adm Date: 4 Loc: Room: [address] [place] [address] Type: ADM IN Attending Dr: Brennan Cerrato [...] date: 07/11/2023 Requesting Physician: Brennan Cerrato MD COUNTS INCLUDE 234 BEDS AT THE [facility] Medical History Diabetes mellitus due to underlying [...] % (Auto) 84.7 Lymph % (Auto) 6.5 [place] % (Auto) 8.4 Eos % (Auto) 0.3 Baso % (Auto) 0.1 Nucleat RBC Rel Count 0.0 Neut # (Auto) 27.7 H Lymph # (Auto) 2.1 [place] # (Auto) 2.7 H Eos # (Auto) [...] % (Auto) N/A Lymph % (Auto) N/A [place] % (Auto) N/A Eos % (Auto) N/A Baso % (Auto) N/A Nucleat RBC Rel Count N/A Neut # (Auto) N/A Lymph # (Auto) N/A [place] # (Auto) N/A Eos # (Auto) N/A [...] signed by Giovanni Ni MD> 07/11/23 09 [facility] Work Phone: Consult note Author Giovanni Ni [facility] July 11, 2023 9:06am Note Date/Time July 11, 2023 9:07am [facility] [address] [place] [address] Vascular Surgery Consult Note Signed Patient: Sudeep Diego JR MR#: [id number] : 1950 Acct:[id number] Age/Sex: 72 / M Adm Date: 4 Loc: Room: [address] [place] [address] Type: ADM IN Attending Dr: Brennan Cerrato MD Copies to: MD Tejas Cruz MD Matthew T Langenberg, MD~ HPI Consult HPI History of present illness: Mr. Diego is a 72 year old male cc:: CC: Brennan Cerrato MD Data of Consult Consult date: 07/11/2023 Requesting Physician: Brennan Cerrato MD COUNTS INCLUDE 234 BEDS AT THE [facility] Medical History Diabetes mellitus due to underlying [...] % (Auto) 84.7 Lymph % (Auto) 6.5 [place] % (Auto) 8.4 Eos % (Auto) 0.3 Baso % (Auto) 0.1 Nucleat RBC Rel Count 0.0 Neut # (Auto) 27.7 H Lymph # (Auto) 2.1 [place] # (Auto) 2.7 H Eos # (Auto) [...] % (Auto) N/A Lymph % (Auto) N/A [place] % (Auto) N/A Eos % (Auto) N/A Baso % (Auto) N/A Nucleat RBC Rel Count N/A Neut # (Auto) N/A Lymph # (Auto) N/A [place] # (Auto) N/A Eos # (Auto) N/A [...] MD 07/11/23905 Signed By: <Electronically signed by Gioavnni Ni MD> 07/11/23905 [facility] Work Phone: Discharge summary Author Arnaldo Thomas [facility] August 23, 2023 3:39pm Note Date/Time August 23, 2023 3:1 0pm [facility] [address] [place] [address] Discharge Summary Signed Patient: Sudeep Diego JR MR#: [id number] : 1950 Acct:[id number] Age/Sex: 72 / M Adm Date: 4 Loc: Room: [address] [place] [address]: Arnaldo Thomas MD Copies to: MD Arnaldo Alicea MD~ Providers Date of Discharge: 08/23/23 Discharging Provider: Arnaldo Thomas Primary Care Provider: Tejas Stevens Consults: 08/01/23 08:05 Consult to Nephrology Routine Comment: 4t text paged nephrology for consult Consulting Provider: MELVI Maria Nephrology Has Provider Been Notified: Yes Date of Notification: 08/01/23 Time of Notification: 08:15 Reason for Consult: Dialysis Treatment Consult to Pulmonology Routine Comment: 4t text paged pulmonology for consult Consulting Provider: MELVI Maria Pulmon, CC [facility] Sleep Med Reason For Exam: sudden dyspnea, intubated Has Provider Been Notified: Yes Date of Notification: 08/01/23 Time of Notification: 08:18 08/01/23 08:07 Consult to Pulmonology Routine Comment: 4t consulted pulmonology for consult Consulting Provider: MELVI Maria Pulmon, CC [facility] Sleep Med Reason For Exam: Critical Care Management Has Provider Been Notified: Yes Date of Notification: 08/01/23 Time of Notification: 08:18 08/01/23 08:28 Consult to Dietitian Routine Comment: Reason for Consult: Tube Feeding Recs 08/01/23 08:29 Consult to Cardiology Routine Comment: 4t UC text paged cardiology for consult Consulting Provider: [facility] - Cardiology Reason For Exam: elevated troponin Has Provider Been Notified: Yes Date of Notification: 08/01/23 Time of Notification: 08:40 08/03/23 13:12 Consult to Dietitian Routine Comment: Reason for Consult: Tube Feeding Recs 08/06/23 15:16 Consult to Neurology Routine Comment: Consulting Provider: [facility] Reason For Exam: encephalopathy; influenza; respiratory failure Has Provider Been Notified: Yes Date of Notification: 08/06/23 Time of Notification: 15:24 08/11/23 09:34 Consult to Dietitian Routine Comment: Reason for Consult: Tube Feeding Recs 08/11/23 14:33 Consult to Otolaryngology(Head and Neck) Routine Comment: called office [phone] Consulting Provider: Darryl Britt Reason For Exam: consideration of tracheostomy Has Provider Been Notified: Yes Date of Notification: 08/11/23 Time of Notification: 16:27 08/12/23 09:56 Consult to Podiatry Routine Comment: Dr. Tori Juan medical radiation dosimetrist Consulting Provider: Rohan Han Reason For Exam: re-check amputation site. Has Provider Been Notified: Yes Date of Notification: 08/12/23 Time of Notification: 12:38 Extended Comment: Called [phone] office,they are going to call back if not the correct office 08/14/23 08:17 Consult to Occupational Therapy Routine Comment: Physician Instructions: Consult to OT for:: Evaluation and Treat Consult to Physical Therapy Routine Comment: Physician Instructions: Consult to PT for:: Evaluation and Treat Extended Comment: patient with tracheostomy on ventilator, awake and alert 08/16/23 11:07 Consult to Infectious Diseases Routine Comment: Consulting Provider: [facility] - Infectious Disease Reason For Exam: pneumonia, elevated wbc Has Provider Been Notified: Yes Date of Notification: 08/16/23 Time of Notification: 11:22 Discharge Diagnosis (1) SONYA (acute kidney injury): (2) Acute pulmonary edema: (3) Acute hypoxic respiratory failure: (4) T2DM (type 2 diabetes mellitus): (5) Elevated troponin level not due to acute coronary syndrome: (6) Anemia of renal disease: (7) Thrombocytosis: (8) Encephalopathy: (9) PAD (peripheral artery disease): (10) Leukocytosis: Final Diagnosis Final Discharge Diagnosis: As above Summary Hospital Course Hospital course: Patient is 72-year-old male who had a prolonged hospital stay due to multiple medical issues. He was recently discharged from the hospital on 07/25/2023 and admitted for left foot gangrene and underwent transmetatarsal amputation for osteomyelitis. He also developed acute kidney injury and was started on hemodialysis. He was brought to the emergency room at [facility] for shortness of breath. Noted to be in respiratory failure and intubated placed onmechanical ventilator. Patient has a history of diabetes and peripheral vascular disease. He was noted to be anemic with hemoglobin 6.7 and received 2 units packed RBC. Echocardiogram showed normal LV function. While in the hospital he was seen by pulmonary, podiatry, cardiology, nephrology, infectious disease, neurology and ENT services. He was continued on hemodialysis while in the hospital by nephrology service. Stay was complicated due to severe metabolic encephalopathy requiring neurologic evaluation. His mentation has markedly improved. Patient was extubated on 08/09 but required reintubation later due to mucous plugging. Given his persistent respiratory failure patient underwent tracheostomy by ENT service. Currently is on 4 hours trach collar andthen pressure support intermittently nocturnal mechanical ventilatory support. He has completed 7 days of micafungin for Rajiv glabrata in urine. Prior to that also received meropenem and vancomycin. No growth on last endotracheal culture. Patient will be discharged to LTAC continue with process of weaning off mechanical ventilator. Condition Condition at Discharge: Stable Time Spent with Patient Time spent providing/coordinating discharge services (# min): 40 Surgeries and Procedures Operation Date: 08/12/23 16:30 Actual Procedures p OR Tracheostomy(Not Applicable) - Darryl Britt, DO Diagnostic Studies Completed and Pending Studies Pending studies at discharge: 08/12/23 09:50 Sputum Culture Stat 08/21/23 15:17 Urine Culture Routine Preliminary micro results at discharge 08/21/23 15:17 Urine Culture - Preliminary Urine - Clean-Voided Midstream Klebsiella pneumoniae 08/12/23 09:50 Aerobic Culture - Preliminary Sputum - Endotrachael Rajiv albicans Fungal like structure Labs on day of discharge: 08/23/23 12:32: POC Glucose 99, POC Glucose Comment Glu2: cleaned meter 08/23/23 05:34: POC Glucose 218 08/23/23 00:15: POC Glucose 189 08/22/23 18:17: POC Glucose 162 Exam Physical Exam Vital Signs: Temp Pulse Resp BP Pulse Ox O2 Del Method O2 Flow Rate 98.4 F 62 17 147/70 H 100 Mechanical Ventilation 12 08/23/23 13:05 08/23/23 14:00 08/23/23 14:00 08/23/23 14:00 08/23/23 14:00 08/23/23 14:00 08/22/23 10:14 FiO2 30 08/23/23 14:00 Const General: cooperative Orientation: alert and awake Other: Able to follow simple commands and does not appear to be in acute distress Resp Effort & Inspection: normal respiratory effort Auscultation: no rales, no rhonchi and no wheezes Neuro General: patient alert, patient awake, moves all extremities and no focal motor deficits Extrem General: no clubbing, cyanosis or edema and no calf tenderness Discharge Plan Discharge Plan Patient Disposition: [facility] Activity: No Activity Restriction Diet: NPO and Other Additional Instructions: [facility] to manage care: - Full code - PT/OT eval and treat - Routine vital signs - Medication management - Fingerstick blood sugar q6h - Maintain gastric tube - Nepro tube feed continuously via gastric tube - goal rate 40ml/hr - Measure gastric residual per protocol - Left foot, medi-honey, adaptic, 4x4 gauze, conform wrap - change every 3 days and as needed - Coccyx stage 2 pressure injury, left and right buttocks stage 3 pressure injury- Clean with Vashe and pat dry. Therahoney gel to the wound bed. Top with Adaptic and Mepilex border foam. Change every 3 days and as needed. - Elevate HOB 30-45 degrees at all times, unless contraindicated - Routine trach care per facility protocol - Nocturnal ventilator support - Ventilator Support Mode: AC - Set Rate (breaths/min): 14 - FI02 (%): 30 - Set Tidal Volume (ml): 450 - PEEP (cm H20): 5 - Tracheostomy collar trials during day as tolerated - Maintain indwelling santana catheter to drainage or leg bag, routine care perprotocol - Hemodialysis as directed by Nephrology Prescriptions: New amlodipine 10 mg Tablet 10 mg OG-Tube DAILY Qty: 0 0RF albuterol sulfate 90 mcg/actuation Hfa Aerosol Inhaler 6 puff Vent Q6HR Qty: 0 0RF acetaminophen 650 mg/20.3 mL Suspension 650 mg NG-Tube Q6H PRN (Reason: Fever Or Pain) Qty: 0 0RF insulin aspart U-100 [Novolog FlexPen U-100 Insulin] 100 unit/mL (3 mL) Insulin Pen See Protocol subcut Q6HR Qty: 0 0RF Protocol: Corrective Scale #4 (TDI 76-100 UNITS) Condition: Corrective Scale #4 (TDI 76-100 UNITS) Condition: Dose/Route: Instruction: Condition: Fingerstick Blood Glucose Dose/Route: Insulin Units Condition: 150-199 mg/dl Dose/Route: 3 unit Condition: 200-249 mg/dl Dose/Route: 4 unit Condition: 250-299 mg/dl Dose/Route: 8 unit Condition: 300-349 mg/dl Dose/Route: 12 unit Condition: 350-399 mg/dl Dose/Route: 14 unit Condition: greater than or = 400 mg/dl Dose/Route: 16 unit Instruction: Call Provider Protocol Text: *If the corrective scale dose has been administered within the past 4 hours, do not use corrective scale again unless approved by prescriber* diclofenac sodium 1 % Gel 4 g topical QID Qty: 0 0RF gabapentin 300 mg/6 mL (6 mL) Solution 100 mg NG-Tube QPM Qty: 0 0RF insulin glargine [Lantus Solostar U-100 Insulin] 100 unit/mL (3 mL) Insulin Pen 20 unit subcut BID Qty: 0 0RF clopidogrel 75 mg Tablet 75 mg NG-Tube DAILY Qty: 0 0RF metoprolol tartrate 50 mg Tablet 50 mg NG-Tube BID Qty: 0 0RF lansoprazole 30 mg Tablet,Disintegrat, Delay Rel 30 mg PEG Tube DAILY Qty: 0 0RF Continued (DME) FreeStyle Shawn 2 Sensor Kit MISCELLANEOUS Patient Comments: USE DIRECTED change EVERY 14 days Changed atorvastatin 40 mg tablet 40 mg feeding tube DAILY Qty: 30 0RF Patient Comments: TAKE 1 TABLET BY MOUTH AT BEDTIME Held duloxetine 60 mg capsule,delayed release(DR/EC) 60 mg PO DAILY Hold Instructions: renal failure Patient Comments: TAKE 1 CAPSULE BY MOUTH DAILY Discontinued metoprolol succinate 50 mg tablet extended release 24 hr 50 mg PO DAILY Patient Comments: TAKE 1 TABLET BY MOUTH DAILY clopidogrel [Plavix] 75 mg tablet 75 mg PO DAILY 90 Days Qty: 90 0RF insulin glargine [Basaglar KwikPen U-100 Insulin] 100 unit/mL (3 mL) Insulin Pen 37 unit SUBCUT 2XD insulin lispro [Humalog KwikPen Insulin] 100 unit/mL Insulin Pen See Rx Instructions .ROUTE .COMPLEX Protocol: Corrective Scale #1 Condition: 150-199 mg/dL Dose/Route: 1 unit Condition: 200-249 mg/dL Dose/Route: 2 unit Condition: 250-299 mg/dL Dose/Route: 3 unit Condition: 300-349 mg/dL Dose/Route: 4 unit Condition: 350-399 mg/dL Dose/Route: 5 unit Condition: greater than or = 400 mg/dL Dose/Route: 6 unit Protocol Text: If the corrective scale dose has been administered within the past 4 hours, do not use corrective scale again unless otherwise directed Rx Instructions: SSC amlodipine 10 mg Tablet 10 mg PO DAILY Qty: 30 0RF sennosides-docusate sodium 8.6-50 mg Tablet 2 tab PO BID Qty: 10 0RF furosemide 80 mg Tablet 80 mg PO BID@0800,1600 30 Days Qty: 60 0RF oxycodone 5 mg Tablet 10 mg PO Q4H PRN (Reason: Pain Scale 4 - 7) 3 Days Qty: 10 0RF atorvastatin 40 mg Tablet 40 mg PO QPM Qty: 0 0RF pantoprazole 40 mg Tablet,Delayed Release (Dr/Ec) 40 mg PO QAM 30 Days Qty: 0 0RF gabapentin 300 mg Capsule 300 mg PO QPM 30 Days Qty: 30 0RF polyethylene glycol 3350 [HealthyLax] 17 gram Powder In Packet 17 g PO DAILY PRN (Reason: Constipation) Qty: 0 0RF acetaminophen 325 mg capsule 650 mg PO Q4-6H PRN (Reason: pain) Qty: 30 0RF baclofen 10 mg tablet 10 mg PO BID PRN (Reason: muscle spams) Qty: 10 0RF ondansetron 4 mg tablet,disintegrating 4 - 8 mg PO Q6HR PRN (Reason: nausea with dialysis) Qty: 10 0RF Documented By: Arnaldo Thomas MD 08/23/23 1502 Signed By: <Electronically signed by Arnaldo Thomas MD> 08/23/23 1532 [facility] Work Phone: evaluation noteNo [employer] Other Evaluation noteNo assessment information available [facility] Work Phone: Evaluation note* Diagnosis Onset Date Resolution Status Diabetic foot infection acut e [facility] Work Phone: evaluation note* Diagnosis Onset Date Resolution Status Acute hematogenous osteomyelitis, left ankle and foot acute [id number] acute Diabetic foot infection acut e Diarrhea acute Hypertension acute Osteomyelitis acute PAD (peripheral artery disease) acute Pseudomonas infection acute Sciatica, left side acute 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 acute Vomiting acute [facility] Work Phone: Evaluation note* Diagnosis Foot ulcer, left, with fat layer exposed (CMS/HCC)- 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) PVD (peripheral vascular disease) (CMS/HCC) Unspecified peripheral vascular disease Onychomycosis Dermatophytosis of nail Toe pain, left Pain in soft tissues of limb Toe pain, right Pain in soft tissues of limb documented [facility] Diagnosis Onset Date Resolution Status Diabetic foot infection acut e HTN (hypertension) acute Hyperlipemia acute PAD (peripheral artery disease) acute Sepsis acute T2DM (type 2 diabetes mellitus) acute [facility] Work Phone: evaluation note* Diagnosis Foot ulcer, left, with fat layer exposed (CMS/HCC)- 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) PVD (peripheral vascular disease) (CMS/HCC) Unspecified peripheral vascular disease Foot ulcer, left, with necrosis of muscle (HCC) (CMS/HCC) [facility] Diagnosis Onset Date Resolution Status SONYA (acute kidney injury) [place] Cellulitis of left foot acut e Constipation acute [id number] acute Diabetic foot infection acut e Gangrene of left foot acute Hypertension acute Hyperlipemia acute Hyponatremia acute Leukocytosis acute PAD (peripheral artery disease) acute PVD (peripheral vascular disease) acute Sepsis acute T2DM (type 2 diabetes mellitus) acute [facility] Work Phone: Evaluation note* Diagnosis Onset Date Resolution Status SONYA (acute kidney injury) [place] Anemia of renal disease acut e HTN (hypertension) acute Hyperlipemia acute Leukocytosis acute PAD (peripheral artery disease) acute T2DM (type 2 diabetes mellitus) acute Cellulitis of left foot reso lved Constipation resolved Hyponatremia resolved Sepsis resolved Acute hypoxic respiratory failure acute Acute pulmonary edema acute SONYA (acute kidney injury) [place] Anemia of renal disease acut e Elevated troponin level not due to acute coronary syndrome acute Encephalopathy acute ESRD (end stage renal disease) acute HTN (hypertension) acute Hyperlipemia acute Leukocytosis acute Osteomyelitis of left foot a cute PAD (peripheral artery disease) acute Respiratory failure acute T2DM (type 2 diabetes mellitus) acute Thrombocytosis acute Ulcer of left foot acute [facility] Work Phone: Evaluation note* Diagnosis Onset Date Resolution Status Anemia of renal disease acut e HTN (hypertension) acute Hyperlipemia acute PAD (peripheral artery disease) acute T2DM (type 2 diabetes mellitus) acute SONYA (acute kidney injury) re solved Cellulitis of left foot reso lved Constipation resolved Hyponatremia resolved Leukocytosis resolved Sepsis resolved Anemia of renal disease acut e Elevated troponin level not due to acute coronary syndrome acute ESRD (end stage renal disease) acute HTN (hypertension) acute Hyperlipemia acute Osteomyelitis of left foot a cute PAD (peripheral artery disease) acute Respiratory failure acute T2DM (type 2 diabetes mellitus) acute Thrombocytosis acute Ulcer of left foot acute Acute hypoxic respiratory failure resolved Acute pulmonary edema resolv ed SONYA (acute kidney injury) re solved Encephalopathy resolved Leukocytosis resolved Dietary counseling and surveillance acute HTN (hypertension) acute Hyperlipemia acute T2DM (type 2 diabetes mellitus) acute [facility] Work Phone: Evaluation note* Diagnosis Onset Date Resolution Status SONYA (acute kidney injury) [place] Anemia of renal disease acut e HTN (hypertension) acute Hyperlipemia acute PAD (peripheral artery disease) acute T2DM (type 2 diabetes mellitus) acute Cellulitis of left foot reso lved Constipation resolved Hyponatremia resolved Leukocytosis resolved Sepsis resolved SONYA (acute kidney injury) [place] Anemia of renal disease acut e Elevated troponin level not due to acute coronary syndrome acute ESRD (end stage renal disease) acute HTN (hypertension) acute Hyperlipemia acute Osteomyelitis of left foot a cute PAD (peripheral artery disease) acute Respiratory failure acute T2DM (type 2 diabetes mellitus) acute Thrombocytosis acute Ulcer of left foot acute Acute hypoxic respiratory failure resolved Acute pulmonary edema resolv ed Encephalopathy resolved Leukocytosis resolved BMI 29.0-29.9,adult acute Dietary counseling and surveillance acute HTN (hypertension) acute Hyperlipemia acute T2DM (type 2 diabetes mellitus) acute SONYA (acute kidney injury) [place] Anemia acute 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 acute Hyperphosphatemia acute Primary hypertension acute T2DM (type 2 diabetes mellitus) acute Vitamin D deficiency acute [facility] Work Phone: Evaluation note* Diagnosis Onset Date Resolution Status SONYA (acute kidney injury) [place] Anemia of renal disease acut e Elevated troponin level not due to acute coronary syndrome acute ESRD (end stage renal disease) acute HTN (hypertension) acute Hyperlipemia acute Osteomyelitis of left foot a cute PAD (peripheral artery disease) acute Respiratory failure acute T2DM (type 2 diabetes mellitus) acute Thrombocytosis acute Ulcer of left foot acute Acute hypoxic respiratory failure resolved Acute pulmonary edema resolv ed Encephalopathy resolved Leukocytosis resolved BMI 29.0-29.9,adult acute Dietary counseling and surveillance acute HTN (hypertension) acute Hyperlipemia acute T2DM (type 2 diabetes mellitus) acute SONYA (acute kidney injury) [place] Anemia acute 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 acute Hyperphosphatemia acute Primary hypertension acute T2DM (type 2 diabetes mellitus) acute Vitamin D deficiency acute History of tracheostomy acut e Respiratory failure acute [facility] Work Phone: Evaluation note* Diagnosis Onset Date Resolution Status SONYA (acute kidney injury) [place] Anemia acute 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 acute Hyperphosphatemia acute Primary hypertension acute T2DM (type 2 diabetes mellitus) acute Vitamin D deficiency acute History of tracheostomy acut e Respiratory failure acute BMI 29.0-29.9,adult acute Dietary counseling and surveillance acute HTN (hypertension) acute Hyperlipemia acute T2DM (type 2 diabetes mellitus) acute [facility] Work Phone: Evaluation note* Diagnosis Onset Date Resolution Status SONYA (acute kidney injury) [place] Anemia acute 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 acute Hyperphosphatemia acute Primary hypertension acute T2DM (type 2 diabetes mellitus) acute Vitamin D deficiency acute History of tracheostomy acut e Respiratory failure acute BMI 29.0-29.9,adult acute Dietary counseling and surveillance acute HTN (hypertension) acute Hyperlipemia acute T2DM (type 2 diabetes mellitus) acute SONYA (acute kidney injury) [place] Anemia acute Chronic kidney disease, stage IV (severe) acute 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 acute Hyperphosphatemia acute Primary hypertension acute T2DM (type 2 diabetes mellitus) acute Vitamin D deficiency acute [facility] Work Phone: History and physical note Author Rohan Han [facility] July 11, 2023 8:33am Note Date/Time July 11, 2023 8:33am [facility] [address] [place] [address] Podiatry H&P Signed Patient: Sudeep Diego JR MR#: [id number] : 1950 Acct:[id number] Age/Sex: 72 / M Adm Date: 4 Loc: Room: [address] [place] [address] Type: ADM IN Attending Dr: Brennan Cerrato [...] 3 months ago and last admission to [facility]. Patient seen today for condition unrelated to prior procedure. Review of Systems Constitutional Constitutional: Reports body ache(s), Reports fever(s) and Reports night sweats Cardiovascular Comments: Denies chest pain shortness of breath or irregular rhythm Gastrointestinal Comments: Denies abdominal pain loose stool Musculoskeletal Comments: States pain to the left foot and history of degenerative disc disease of the back COUNTS INCLUDE 234 BEDS AT [facility] Medical History (Updated 07/11/23 @ 08:32 by [...] further infection/scar/poor wound healing/nerve damage/cardiovascular issues including DVT/PE/SD/TIA and loss of digit/limb/or life. Pt consents [...] today Documented By: Rohan Han DPM 07/11/23 0839 Signed By: <Electronically signed by TOY Han> 07/11/23 0285 [facility] Work Phone: history general Narrative - Reported* Type Description Date Medical History PROSTATE CANCER Medical History DM2 Medical History GERD Medical History HTN Medical History NEUROPATHY Medical History [place] Surgical History prostate surgery for cancer 01/25 Surgical History cholecystectomy 2010 Surgical History hernia repair 2009 Surgical History circumcision 11/2019 Hospitalization History SEE ABOVE SURGERY [facility] Other [facility] general Narrative - Reported* Type Description Date Medical History PROSTATE CANCER Medical History DM2 Medical History GERD Medical History HTN Medical History NEUROPATHY Medical History [place] Surgical History prostate surgery for cancer 01/25 Surgical History cholecystectomy 2010 Surgical History hernia repair 2009 Surgical History circumcision 11/2019 Surgical History BILATERAL CATARACT REMOVAL 04/26 & 05/2022 Hospitalization History SEE ABOVE SURGERY [facility] Other [facility] general Narrative - Reported* Type Description Date Medical History PROSTATE CANCER Medical History DM2 Medical History GERD Medical History HTN Medical History NEUROPATHY Medical History [place] Surgical History prostate surgery for cancer 01/25 Surgical History cholecystectomy 2010 Surgical History hernia repair 2009 Surgical History circumcision 11/2019 Surgical History BILATERAL CATARACT REMOVAL 04/26 & 05/2022 Surgical History tonsillectomy Surgical History appendectomy Surgical History rotator cuff tear repair Hospitalization History SEE ABOVE SURGERY [facility] Other [facility] general Narrative - Reported* Type Description Date Medical History PROSTATE CANCER Medical History DM2 Medical History GERD Medical History HTN Medical History NEUROPATHY Medical History [place] Medical History PAD Surgical History prostate surgery for cancer 01/25 Surgical History cholecystectomy 2010 Surgical History hernia repair 2009 Surgical History circumcision 11/2019 Surgical History BILATERAL CATARACT REMOVAL 04/26 & 05/2022 Surgical History tonsillectomy Surgical History appendectomy Surgical History rotator cuff tear repair Surgical History PART OF LEFT FOOT REMOVED ON OUTER FOOT 2022 Hospitalization History SEE ABOVE [employer] Other history general Narrative - Reported* Type Description Date Medical History PROSTATE CANCER Medical History DM2 Medical History GERD Medical History HTN Medical History NEUROPATHY Medical History [place] Medical History PAD Surgical History prostate surgery for cancer 01/25 Surgical History cholecystectomy 2010 Surgical History hernia repair 2009 Surgical History circumcision 11/2019 Surgical History BILATERAL CATARACT REMOVAL 04/26 & 05/2022 Surgical History tonsillectomy Surgical History appendectomy Surgical History rotator cuff tear repair Surgical History PART OF LEFT FOOT REMOVED ON TH E OUTER FOOT 02/25/23 Hospitalization History SEE ABOVE SURGERY [employer] Other InstructionsNot on filedocumented in this encounter [facility] Summary Purpose Family History Relationship Condition Age at Onset Recorded Date/T karolina father Hypertension Unknown Not Specified Diabetes mellitus Unknown History of stroke Unknown Unknown Relationship Condition Age at Onset Recorded Date/T karolina father Hypertension Unknown Not Specified Diabetes mellitus Unknown History of stroke Unknown Unknown Cerebrovascular accident (CVA) Unknown brother Malignant neoplasm Unknown Relationship Condition Age at Onset Recorded Date/T karolina father Hypertension Unknown mother Diabetes mellitus Unknown History of stroke Unknown Unknown Cerebrovascular accident (CVA) Unknown brother Malignant neoplasm Unknown Advance Directives Advance Directive Response Recorded Date/ Time Advance Directives No March 31, 2018 12:20pm Advance Directive Response Recorded Date/ Time Advance Directives No March 31, 2018 11:20am Reason for Referral Reason DM II TOE WOUNDS Diagnosis 1 Type 2 diabetes wilfredo itus with hyperglycemia (E11.65) Referral Organization [facility] Referring Provider First Name Louise Referring Provider Last Name Ashleigh Referring Provider Specialty Nurse Pract itioner Referred Organization [facility] Referred Provider Rohan Han Referred Address ,[place], [place],[address] Referred Provider Specialty Podiatry - S urgical Chiropody Referral Priority Routine Referral Appointment Date 2022-07-30 General Notes Socorro Higuera 07/2022 09:45:27 AM >CALL TO DR SHARMA'S OFFICE FOR SCHEDULING PATIENCE; ADDRESS: [address] [place] [address] PHONE: [phone]; PATIENT HAS BEEN DISCHARGED FROM PRACTICE DUE TO FINANCIAL PAST DUE/COLLECTIONS STATUS; Socorro Higuera 07/26/2022 09:52:59 AM >SCHEDULED WITH DR. ROHAN HAN IN [place] ON 07/30/22. BE THERE AT 2PM FOR A 230PM APPT. ADDRESS: [address] [place] [address]; PHONE: [phone]. ATTEMPTED TO INFORM PATIENT. VOICEMAIL FULL. WILL TRY AGAIN LATER. REFERRAL, OFFICE NOTES AND MED LIST FAXED TO [phone]. REACHED PATIENT AND HE IS INFORMED OF APPT STATUS. REFERRAL FAXED. 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 lt foot issues, hx diabetic Reason for Visit Acute hematogenous o steomyelitis, left ankle and foot [id number] Diabetic foot infection Diarrhea Hypertension Osteomyelitis PAD (peripheral artery disease) Pseudomonas infection Sciatica, left side 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 Vomiting Chief Complaint 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 lt foot issues, hx diabetic IV antibiotic therapy, osteomyelitis iv antibotic therapy, osteomyelitis E11.40 manager terminal current use of antibiotics Reason for Visit Acute hematogenous o steomyelitis, left ankle and foot [id number] Diabetic foot infection Diarrhea Hypertension Osteomyelitis PAD (peripheral artery disease) Pseudomonas infection Sciatica, left side 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 Vomiting Chief Complaint 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 lt foot issues, hx diabetic IV antibiotic therapy, osteomyelitis iv antibotic therapy, osteomyelitis E11.40 manager terminal current use of antibiotics e10.42 m86.172 Reason for Visit Acute hematogenous o steomyelitis, left ankle and foot [id number] Diabetic foot infection Diarrhea Hypertension Osteomyelitis PAD (peripheral artery disease) Pseudomonas infection Sciatica, left side 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 Vomiting Chief Complaint 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 lt foot issues, hx diabetic IV antibiotic therapy, osteomyelitis iv antibotic therapy, osteomyelitis E11.40 [facility] current use of antibiotics e10.42 m86.172 manager terminal current use of antibiotics Reason for Visit Acute hematogenous o steomyelitis, left ankle and foot [id number] Diabetic foot infection Diarrhea Hypertension Osteomyelitis PAD [...] in jury) Cellulitis of left foot Constipation [id number] Diabetic foot infection [place] of left foot Hypertension Hyperlipemia Hyponatremia Leukocytosis PAD (peripheral artery disease) PVD (peripheral vascular disease) Sepsis T2DM (type 2 diabetes mellitus) Chief Complaint 3 Month Follow Up E11.40 L foot swelling,wounds L foot swelling,wounds L foot swelling,wounds L foot swelling,wounds L foot swelling,wounds L foot swelling,wounds L foot swelling,wounds SONYA L foot swelling,wounds L foot swelling,wounds L foot swelling,wounds L foot swelling,wounds CHF, fluid overload CHF, fluid overload CHF, fluid overload CHF, fluid overload CHF, fluid overload CHF, fluid overload CHF, fluid overload CHF, fluid overload CHF, fluid overload CHF, fluid overload CHF, fluid overload CHF, fluid overload CHF, fluid overload CHF, fluid overload CHF, fluid overload Reason for Visit SONYA (acute kidney in jury) Anemia of renal disease HTN (hypertension) Hyperlipemia Leukocytosis PAD (peripheral artery disease) T2DM (type 2 diabetes mellitus) Cellulitis of left foot Constipation Hyponatremia Sepsis Acute hypoxic respiratory failure Acute pulmonary edema SONYA (acute kidney injury) Anemia of renal disease Elevated troponin level not due to acute coronary syndrome Encephalopathy ESRD (end stage renal disease) HTN (hypertension) Hyperlipemia Leukocytosis Osteomyelitis of left foot PAD (peripheral artery disease) Respiratory failure T2DM (type 2 diabetes mellitus) Thrombocytosis Ulcer of left foot Chief Complaint L foot swelling,woun ds L foot swelling,wounds L foot swelling,wounds L foot swelling,wounds L foot swelling,wounds L foot swelling,wounds L foot swelling,wounds SONYA L foot swelling,wounds L foot swelling,wounds L foot swelling,wounds L foot swelling,wounds CHF, fluid overload CHF, fluid overload CHF, fluid overload CHF, fluid overload CHF, fluid overload CHF, fluid overload CHF, fluid overload CHF, fluid overload CHF, fluid overload CHF, fluid overload CHF, fluid overload CHF, fluid overload CHF, fluid overload CHF, fluid overload CHF, fluid overload 3 month f/u-METER Reason for Visit Anemia of renal dise ase HTN (hypertension) Hyperlipemia PAD (peripheral artery disease) T2DM (type 2 diabetes mellitus) SONYA (acute kidney injury) Cellulitis of left foot Constipation Hyponatremia Leukocytosis Sepsis Anemia of renal disease Elevated troponin level not due to acute coronary syndrome ESRD (end stage renal disease) HTN (hypertension) Hyperlipemia Osteomyelitis of left foot PAD (peripheral artery disease) Respiratory failure T2DM (type 2 diabetes mellitus) Thrombocytosis Ulcer of left foot Acute hypoxic respiratory failure Acute pulmonary edema SONYA (acute kidney injury) Encephalopathy Leukocytosis Dietary counseling and surveillance HTN (hypertension) Hyperlipemia T2DM (type 2 diabetes mellitus) Chief Complaint L foot swelling,woun ds L foot swelling,wounds CHF, fluid overload CHF, fluid overload CHF, fluid overload CHF, fluid overload CHF, fluid overload CHF, fluid overload CHF, fluid overload CHF, fluid overload CHF, fluid overload CHF, fluid overload CHF, fluid overload CHF, fluid overload CHF, fluid overload CHF, fluid overload CHF, fluid overload 3 month f/u-[facility] RENAL HOSP F/U Reason for Visit SONYA (acute kidney in jury) Anemia of renal disease HTN (hypertension) Hyperlipemia PAD (peripheral artery disease) T2DM (type 2 diabetes mellitus) Cellulitis of left foot Constipation Hyponatremia Leukocytosis Sepsis SONYA (acute kidney injury) Anemia of renal disease Elevated troponin level not due to acute coronary syndrome ESRD (end stage renal disease) HTN (hypertension) Hyperlipemia Osteomyelitis of left foot PAD (peripheral artery disease) Respiratory failure T2DM (type 2 diabetes mellitus) Thrombocytosis Ulcer of left foot Acute hypoxic respiratory failure Acute pulmonary edema Encephalopathy Leukocytosis BMI 29.0-29.9,adult Dietary counseling and surveillance HTN (hypertension) Hyperlipemia T2DM (type 2 diabetes mellitus) SONYA (acute kidney injury) Anemia Diabetic nephropathy associated with type 2 diabetes mellitus Hyperphosphatemia Primary hypertension T2DM (type 2 diabetes mellitus) Vitamin D deficiency Chief Complaint CHF, fluid overload CHF, fluid overload CHF, fluid overload CHF, fluid overload CHF, fluid overload CHF, fluid overload CHF, fluid overload CHF, fluid overload CHF, fluid overload CHF, fluid overload 3 month f/u-[facility] RENAL HOSP F/U Hospital f/u- Reason for Visit SONYA (acute kidney in jury) Anemia of renal disease Elevated troponin level not due to acute coronary syndrome ESRD (end stage renal disease) HTN (hypertension) Hyperlipemia Osteomyelitis of left foot PAD (peripheral artery disease) Respiratory failure T2DM (type 2 diabetes mellitus) Thrombocytosis Ulcer of left foot Acute hypoxic respiratory failure Acute pulmonary edema Encephalopathy Leukocytosis BMI 29.0-29.9,adult Dietary counseling and surveillance HTN (hypertension) Hyperlipemia T2DM (type 2 diabetes mellitus) SONYA (acute kidney injury) Anemia Diabetic nephropathy associated with type 2 diabetes mellitus Hyperphosphatemia Primary hypertension T2DM (type 2 diabetes mellitus) Vitamin D deficiency History of tracheostomy Respiratory failure Chief Complaint RENAL HOSP F/U Hospital f/u- shawn meter Reason for Visit SONYA (acute kidney in jury) Anemia Diabetic nephropathy associated with type 2 diabetes mellitus Hyperphosphatemia Primary hypertension T2DM (type 2 diabetes mellitus) Vitamin D deficiency History of tracheostomy Respiratory failure BMI 29.0-29.9,adult Dietary counseling and surveillance HTN (hypertension) Hyperlipemia T2DM (type 2 diabetes mellitus) Chief Complaint RENAL HOSP F/U Hospital f/u- shawn meter RENAL 3 MONTH F/U Reason for Visit SONYA (acute kidney in jury) Anemia Diabetic nephropathy associated with type 2 diabetes mellitus Hyperphosphatemia Primary hypertension T2DM (type 2 diabetes mellitus) Vitamin D deficiency History of tracheostomy Respiratory failure BMI 29.0-29.9,adult Dietary counseling and surveillance HTN (hypertension) Hyperlipemia T2DM (type 2 diabetes mellitus) SONYA (acute kidney injury) Anemia Chronic kidney disease, stage IV (severe) Diabetic nephropathy associated with type 2 diabetes mellitus Hyperphosphatemia Primary hypertension T2DM (type 2 diabetes mellitus) Vitamin D deficiency Additional Source Comments REASON FOR VISIT (unrecogniz ed section and content) Reason Comments Foot Ulcer Left foot ulcer/ yakov petra consult Reason Comments Post-op 1st post op (unrecognized sect ion and content) No Status Records FoundNo Status Records FoundNo Status Records FoundNo Status Records FoundNo Status Records FoundNo Status Records Found INFORMATION SOURCE (unrecogn ized section and content) DATE CREATED AUTHOR [facility]/27/2022 [facility] DATE CREATED AUTHOR AUTHOR'S ORGANIZ ATION 05/15/2023 [facility] DATE CREATED AUTHOR AUTHOR'S ORGANIZ ATION 10/25/2023 [facility] DATE CREATED AUTHOR AUTHOR'S ORGANIZ ATION 11/10/2023 [facility] DATE CREATED AUTHOR AUTHOR'S ORGANIZ ATION 12/31/2023 [facility] DATE CREATED AUTHOR AUTHOR'S ORGANIZ ATION 01/04/2024 [facility] EPIC Care Teams (unrecognized sec tion and content) [...] Bautista MD Other Provider Active Pamela Berry MITER SAW OPERATOR-C Other Provider Active Mayra Youngblood MD Other Provider Active Giovanni Ni MD Other Provider Active Orestes Mejia , DO Attending Provider Active Team Status: Inactive Member Role Status Dates Michael Ramírez MD Attending Provider Active Team Status: Active Member Role Status Dates John Ervin , DO Primary Care Provider Active Juan Ramon Shields APRN MITER SAW OPERATOR-C Active Louise Sotelo , UNIT AID Attending Provider Active Team Status: Inactive Member Role Status Dates Rohan Han DPM Attending Provider Active Sound Editor Relationship Specialty Start Date End Date Tejas Stevens MD [address] [place] [address] PCP - General Family Medicine 07/12/19 Sound Editor Relationship Specialty Start Date End Date Tejas Stevens MD PCP - General Cardiology 11/07/22 Tejas Stevens MD [address] [place] [address] PCP - Devoted 05/26/23 Sound Editor Relationship Specialty Start Date End Date Tejas Stevens MD PCP - General Cardiology 11/07/22 Tejas Stevens MD [address] [place] [address] PCP - Devoted 05/26/23 Team Status: Inactive [...] June 26, 2023 Juan Ramon Shields APRN MITER SAW OPERATOR-C Active Sta rt: June 26, 2023 End: June 26, 2023 Louise Sotelo APRN Attending Provider Active Start: June 26, 2023 End: June 26, 2023 Sound Editor Relationship Specialty Start Date End Date Tejas Stevens MD PCP - General Cardiology 11/07/22 Tejas Stevens MD [address] [place] [address] PCP - Devoted 05/26/23 Team Status: Active Member Role Status Dates Tejas Stevens MD Primary Care Provider Active S tart: July 10, 2023 Brittney Hudson APRN Emergency Provider Active Start: July 10, 2023 Arnaldo Thomas MD Admit Provider, Atte nding Provider Active Start: July 10, 2023 Sound Editor Relationship Specialty Start Date End Date Tejas Stevens MD PCP - General Cardiology 11/07/22 Tejas Stevens MD [address] [place] [id number] PCP - Devoted 05/26/23 Team Status: Active [...] Provider Active Start : July 10, 2023 Tello Nava MD Attending Provider Active St art: July 10, 2023 Sanket Hammer MD Other Provider Active Start: [id number] Richa Slater LPN Other Provider Active Star t: July 10, 2023 Dhruv Bautista MD Other Provider Active Start : July 10, 2023 Pamela Berry NP-C Other Provider Active St art: July 10, [...] Brennan Cerrato MD Other Provider Active Start: bru2023 Michael Ramírez MD Other Provider Active Start: [...] Brennan Cerrato MD Other Provider Active Start: [facility] 2023 Michael Ramírez MD Attending Provider, Other [...] July 18, 2023 End: July 18, 2023 Team Status: Inactive Member Role Status Dates Tejas Stevens MD Primary Care Provider Active S tart: July 10, 2023 End: July 26, 2023 Brittney Hudson APRN Emergency Provider Active Start: July 10, 2023 End: July 26, 2023 Arnaldo Thomas MD Admit Provider Active Start: July 10, 2023 End: July 26, 2023 Michael Ramírez MD Other Provider Active Start: July 10, 2023 End: July 26, 2023 Rohan Han DPM Other Provider Active Sta rt: July 10, 2023 End: July 26, 2023 Mayra Youngblood MD Other Provider Active Start : July 10, 2023 End: July 26, 2023 Sanket Hammer MD Other Provider Active Start: [facility] 2023 End: July 26, 2023 Richa Slater LPN Other Provider Active Star t: July 10, 2023 End: July 26, 2023 Dhruv Bautista MD Other Provider Active Start : July 10, 2023 End: July 26, 2023 MARCO ANTONIO Chavez Other Provider Active St art: July 10, 2023 End: July 26, 2023 Giovanni Ni MD Other Provider Active Start: July 10, 2023 End: July 26, 2023 Hermes Morton MD Other Provider Active Start: July 10, 2023 End: July 26, 2023 Geo Thomas DO Attending Provider Active Start: July 10, 2023 End: July 26, 2023 Team Status: Active Member Role Status [...] Active Start : July 13, 2023 Shun Mannign MD Attending Provider, Other Provider Active Start: July 13, 2023 Ganga Kennedy MD Active Start: [facility] 2023 Team Status: Active Member Role Status Dates Tejas Stevens MD Primary Care Provider Active S tart: July 19, 2023 Brittney Hudson APRN Emergency Provider Active Start: July 19, 2023 Arnaldo Thomas MD Admit Provider Active Start: July 19, 2023 Michael Ramírez MD Other Provider Active Start: July 19, 2023 Rohan Han DPM Other Provider Active Sta rt: July 19, 2023 Mayra Youngblood MD Other Provider Active Start : July 19, 2023 Tello Nava MD Other Provider Active Start: July 19, 2023 Sanket Hammer MD Other Provider Active Start: ebruary 2023 Richa Slater LPN Other Provider Active Star t: July 19, 2023 Dhruv Bautista MD Other Provider Active Start : July 19, 2023 MARCO ANTONIO Chavez Other Provider Active St art: July 19, 2023 Giovanni Ni MD Other Provider Active Start: July 19, 2023 Hermes Morton MD Other Provider Active Start: July 19, 2023 Vania Chacon MD Attending Provider Active Star t: July 19, 2023 Naida Amaya MD Active Start: ebruary 2023 Team Status: Active Member Role Status Dates Tejas Stevens MD Primary Care Provider Active S tart: July 21, 2023 Brittney Hudson APRN Emergency Provider Active Start: July 21, 2023 Arnaldo Thomas MD Admit Provider Active Start: July 21, 2023 Michael Ramírez MD Attending Provider, Other Provider Active Start: July 21, 2023 Rohan Han DPM Other Provider Active Sta rt: July 21, 2023 Mayra Youngblood MD Other Provider Active Start : July 21, 2023 Sanket Hammer MD Other Provider Active Start: ebruary 2023 Richa Slater LPN Other Provider Active Star t: July 21, 2023 Dhruv Bautista MD Other Provider Active Start : July 21, 2023 MATTHEW ChavezC Other Provider Active St art: July 21, 2023 Giovanni Ni MD Other Provider Active Start: July 21, 2023 Hermes Morton MD Other Provider Active Start: July 21, 2023 Vania Chacon MD Other Provider Active Start: ebruary 2023 Team Status: Active Member Role Status Dates Tejas Stevens MD Primary Care Provider Active S tart: July 22, 2023 Brittney Hudson APRN Emergency Provider Active Start: July 22, 2023 Arnaldo Thomas MD Admit Provider Active Start: July 22, 2023 Michael Ramírez MD Other Provider Active Start: July 22, 2023 Rohan Han DPM Other Provider Active Sta rt: July 22, 2023 Mayra Youngblood MD Other Provider Active Start : July 22, 2023 Sanket Hammer MD Other Provider Active Start: ebruary 2023 Richa Slater LPN Other Provider Active Star t: July 22, 2023 Dhruv Bautista MD Other Provider Active Start : July 22, 2023 MATTHEW ChavezC Other Provider Active St art: July 22, 2023 Giovanni Ni MD Other Provider Active Start: July 22, 2023 Hermes Morton MD Other Provider Active Start: July 22, 2023 Vania Chacon MD Other Provider Active Start: F ebruary 2023 Rancho Kay MD Attending Provider Active Start : July 22, 2023 Team Status: Active Member Role Status Dates Tejas Stevens MD Primary Care Provider Active S tart: July 26, 2023 Brittney Hudson APRN Emergency Provider Active Start: July 26, 2023 Arnaldo Thomas MD Admit Provider Active Start: July 26, 2023 Michael Ramírez MD Other Provider Active Start: July 26, 2023 Rohan Han DPM Other Provider Active Sta rt: July 26, 2023 Mayra Youngblood MD Other Provider Active Start : July 26, 2023 Sanket Hammer MD Other Provider Active Start: M arch 2023 Richa Slater LPN Other Provider Active Star t: July 26, 2023 Dhruv Bautista MD Other Provider Active Start : July 26, 2023 Pamela Berry , MITER SAW OPERATOR-C Other Provider Active St art: July 26, 2023 Giovanni Ni MD Other Provider Active Start: July 26, 2023 Hermes Morton MD Other Provider Active Start: July 26, 2023 Geo Thomas DO Attending [facility] ider, Other Provider Active Start: July 26, 2023 Team Status: Inactive Member Role Status Dates Tejas Stevens MD Primary Care Provider Active S tart: August 01, 2023 End: August 23, 2023 Geo Thomas DO Admit Provider Active Start: August 01, 2023 End: August 23, [address] [facility] Other Provider Active Start: August 01, 2023 End: August 23, 2023 Fabio Camacho MD Other Provider Active Start: M arch 2023 End: August 23, 2023 Mehul Garrett MD Other Provider Active Start: August 01, 2023 End: August 23, 2023 Mayar Mccarthy MD Other Provider Active St art: August 01, 2023 End: August 23, 2023 Sebastian Flores DO Other Provider Active Start: August 01, 2023 End: August 23, 2023 Maame Jolley MD Other Provider Active Start: August 01, 2023 End: August 23, 2023 John Beyer MD Other Provider Active Start: August 01, 2023 End: August 23, 2023 Pravin Meza MD Other Provider Active Start: [facility] 2023 End: August 23, 2023 Andi Han , Other Provider Active Start: August 01, 2023 End: August 23, 2023 Alfonso Kilgore , Other Provider Active Start: August 01, 2023 End: August 23, 2023 Elder Varner MD Other Provider Active Start: [facility] 2023 End: August 23, 2023 Sury Winkler MD Other Provider Active Start: [facility] 2023 End: August 23, 2023 MATTHEW MarcC Other Provider Active Start: August 01, 2023 End: August 23, 2023 Rancho Kay MD Other Provider Active Start: [facility] 2023 End: August 23, 2023 José Miguel Willingham MD Other Provider Active Star t: August 01, 2023 End: August 23, 2023 El Charles MD Other Provider Active Start: August 01, 2023 End: August 23, 2023 Sanket Hammer MD Other Provider Active Start: [facility] 2023 End: August 23, 2023 Tika Monteiro Other Provider Active Start: August 01, 2023 End: August 23, 2023 Debbie Dennis DO Other Provider Active Start: August 01, 2023 End: August 23, 2023 Krish Lackey MD Other Provider Active Start : August 01, 2023 End: August 23, 2023 Mehul Cordon DO Other Provider Active Start: August 01, 2023 End: August 23, 2023 Sindy Grimes ANP-BC Other Provider Active Start: August 01, 2023 End: August 23, 2023 Pravin Rivers DO Other Provider Active Start: August 01, 2023 End: August 23, 2023 Munira Kamara APRN Other Provider Active St art: August 01, 2023 End: August 23, 2023 MATTHEW PortilloC Other Provider Active Sta rt: August 01, 2023 End: August 23, 2023 Sirisha Holm , UNIT AID-FURNACE RELINER-C Other Provider Active Start: August 01, 2023 End: August 23, 2023 Darryl Britt DO Other Provider Active Start : August 01, 2023 End: August 23, 2023 Rohan Han DPM Other Provider Active Sta rt: August 01, 2023 End: August 23, 2023 Michael Ramírez MD Other Provider Active Start: August 01, 2023 End: August 23, 2023 Arnaldo Thomas MD Attending Provider Active Sta rt: August 01, 2023 End: August 23, 2023 Team Status: Active Member Role Status Dates Tejas Stevens MD Primary Care Provider Active S tart: August 01, 2023 Geo Thomas DO Admit Provider , Attending Provider, Other Provider Active Start: August 01, 2023 Sury Winkler MD Other Provider Active Start: [facility] 2023 MATTHEW MarcC Other Provider Active Start: August 01, 2023 Rancho Kay MD Other Provider Active Start: [facility] 2023 José Miguel Willingham MD Other Provider Active Star t: August 01, 2023 El Charles MD Other Provider Active Start: August 01, 2023 Sanket Hammer MD Other Provider Active Start: [facility] 2023 Megha Arriaga UNIT AID ACNP-BC Other Provider Active Start: August 01, 2023 Fabio Camacho MD Other Provider Active Start: [facility] 2023 Mehul Garrett MD Other Provider Active Start: August 01, 2023 Mayra Mccarthy MD Other Provider Active St art: August 01, 2023 Sebastian Flores DO Other Provider Active Start: August 01, 2023 Maame Jolley MD Other Provider Active Start: August 01, 2023 John Beyer MD Other Provider Active Start: August 01, 2023 Pravin Meza MD Other Provider Active Start: [facility] 2023 Andi Han DO Other Provider Active Start: August 01, 2023 Alfonso Kilgore DO Other Provider Active Start: August 01, 2023 Elder Varner MD Other Provider Active Start: [facility] 2023 Carlie Loyola RN Other Provider Active Star t: August 01, 2023 Nisa Vargas , Other Provider Active Start : August 01, 2023 Tonya Doss MD Other Provider Active Start: August 01, 2023 Oni Doty MD Other Provider Active Start: August 01, 2023 Nick De MD Other Provider Active St art: August 01, 2023 Juan Haro MD Other Provider Active Start: August 01, 2023 Opal Juan APRN Other Provider Active Start : August 01, 2023 Mari Dinero MD Other Provider Active Start: 2023 Jermaine Youngblood MD Other Provider Active Start: August 01, 2023 Fermin More MD Other Provider Active Start: 2023 Monse Torres FURNACE RELINER-BC Other Provider Active Sta rt: August 01, 2023 Sharon Galvan MD Other Provider Active Start: August 01, 2023 Team Status: Active Member Role Status Dates Tejas Stevens MD Primary Care Provider Active S tart: August 01, 2023 Geo Thomas DO Admit Provider , Other Provider Active Start: August 01, 2023 Megha Arriaga APRN ACNP-BC Other Provider Active Start: August 01, 2023 Fabio Camacho MD Other Provider Active Start: 2023 Mehul Garrett MD Other Provider Active Start: August 01, 2023 Mayra Mccarthy MD Other Provider Active St art: August 01, 2023 Sebastian Flores DO Other Provider Active Start: August 01, 2023 Maame Jolley MD Other Provider Active Start: August 01, 2023 John Beyer MD Other Provider Active Start: August 01, 2023 Pravin Meza MD Other Provider Active Start: 2023 Andi Han , Other Provider Active Start: August 01, 2023 Alfonso Kilgore DO Other Provider Active Start: August 01, 2023 Elder Varner MD Other Provider Active Start: 2023 Sury Winkler MD Other Provider Active Start: 2023 MARCO ANTONIO Marc Other Provider Active Start: August 01, 2023 Rancho Kay MD Other Provider Active Start: [facility] 2023 José Miguel Willingham MD Other Provider Active Star t: August 01, 2023 El Charles MD Other Provider Active Start: August 01, 2023 Sanket Hammer MD Other Provider Active Start: [facility] 2023 Carlie Loyola RN Other Provider Active Star t: August 01, 2023 Chip Bravo MD Attending Provider, Other Provider Active Start: August 01, 2023 Alec Carter MD Other Provider Active Start: August 01, 2023 Deyanira Jaime MD Other Provider Active Start: August 01, 2023 Team Status: Active Member Role Status Dates Tejas Stevens MD Primary Care Provider Active S tart: August 01, 2023 Geo Thomas DO Admit Provider , Other Provider Active Start: August 01, 2023 Megha Arriaga APRN [facility]- Other Provider Active Start: August 01, 2023 Fabio Camacho MD Other Provider Active Start: [facility] 2023 Mehul Garrett MD Other Provider Active Start: August 01, 2023 Mayra Mccarthy MD Other Provider Active St art: August 01, 2023 Sebastian Flores DO Other Provider Active Start: August 01, 2023 Maame Jolley MD Other Provider Active Start: August 01, 2023 John Beyer MD Other Provider Active Start: August 01, 2023 Pravin Meza MD Other Provider Active Start: 2023 Andi Han DO Other Provider Active Start: August 01, 2023 Alfonso Kilgore DO Other Provider Active Start: August 01, 2023 Elder Varner MD Other Provider Active Start: [facility] 2023 Sury Winkler MD Attending Provider, Other Provider Active Start: August 01, 2023 MARCO ANTONIO Marc Other Provider Active Start: August 01, 2023 Rancho Kay MD Other Provider Active Start: [facility] 2023 José Miguel Willingham MD Other Provider Active Star t: August 01, 2023 El Charles MD Other Provider Active Start: August 01, 2023 Sanket Hammer MD Other Provider Active Start: [facility] 2023 Team Status: Active Member Role Status Dates Tejas Stevens MD Primary Care Provider Active S tart: August 02, 2023 Geo Thomas DO Admit Provider Active Start: August 02, 2023 Megha Arriaga APRN ACNP-BC Other Provider Active Start: August 02, 2023 Fabio Camacho MD Other Provider Active Start: [facility] 2023 Mehul Garrett MD Other Provider Active Start: August 02, 2023 Mayra Mccarthy MD Other Provider Active St art: August 02, 2023 Sebastian Flores DO Other Provider Active Start: August 02, 2023 Maame Jolley MD Other Provider Active Start: August 02, 2023 John Beyer MD Other Provider Active Start: August 02, 2023 Pravin Meza MD Other Provider Active Start: [facility] 2023 Andi Han DO Other Provider Active Start: August 02, 2023 Alfonso Kilgore DO Other Provider Active Start: August 02, 2023 Elder Varner MD Attending Provider, Other Provider Active Start: August 02, 2023 Sury Winkler MD Other Provider Active Start: [facility] 2023 Chyna Molina NP-C Other Provider Active Start: August 02, 2023 Rancho Kay MD Other Provider Active Start: [facility] 2023 José Miguel Willingham MD Other Provider Active Star t: August 02, 2023 El Charles MD Other Provider Active Start: August 02, 2023 Sanket Hammer MD Other Provider Active Start: [facility] 2023 Eulogio Ruvalcaba MD Other Provider Active Start : August 02, 2023 Team Status: Active Member Role Status Dates Tejas Stevens MD Primary Care Provider Active S tart: August 08, 2023 Geo Thomas DO Admit Provider Active Start: August 08, 2023 Megha Arriaga APRN ACNP-BC Other Provider Active Start: August 08, 2023 Fabio Camacho MD Other Provider Active Start: [facility] 2023 Mehul Garrett MD Other Provider Active Start: August 08, 2023 Mayra Mccarthy MD Other Provider Active St art: August 08, 2023 Sebastian Flores , Other Provider Active Start: August 08, 2023 Maame Jolley MD Other Provider Active Start: August 08, 2023 John Beyer MD Other Provider Active Start: August 08, 2023 Pravin Meza MD Other Provider Active Start: [facility] 2023 Andi Han , DO Other Provider Active Start: August 08, 2023 Alfonso Kilgore , Other Provider Active Start: August 08, 2023 Elder Varner MD Other Provider Active Start: [facility] 2023 Sury Winkler MD Other Provider Active Start: [facility] 2023 Chyna Molina NP-C Other Provider Active Start: August 08, 2023 Rancho Kay MD Other Provider Active Start: [facility] 2023 José Miguel Willingham MD Other Provider Active Star t: August 08, 2023 El Charles MD Other Provider Active Start: August 08, 2023 Sanket Hammer MD Other Provider Active Start: [facility] 2023 Vania Chacon MD Attending Provider, Other Provider Active Start: August 08, 2023 Tika Monteiro Other Provider Active Start: August 08, 2023 Debbie Dennis DO Other Provider Active Start: August 08, 2023 Krish Lackey MD Other Provider Active Start : August 08, 2023 Mehul Cordon DO Other Provider Active Start: August 08, 2023 Sindy Grimes ANP-BC Other Provider Active Start: August 08, 2023 Prvain Rivers DO Other Provider Active Start: August 08, 2023 Munira Kamara APRN Other Provider Active St art: August 08, 2023 Crystal Casey NP-C Other Provider Active Sta rt: August 08, 2023 Sirisha Holm APRN-FURNACE RELINER-C Other Provider Active Start: August 08, 2023 Team Status: Active Member Role Status Dates Tejas Stevens MD Primary Care Provider Active S tart: August 08, 2023 Geo Thomas DO Admit Provider Active Start: August 08, 2023 Megha Arriaga APRN ACNP-BC Other Provider Active Start: August 08, 2023 Fabio Camacho MD Other Provider Active Start: [facility] 2023 Mehul Garrett MD Other Provider Active Start: August 08, 2023 Mayra Mccarthy MD Other Provider Active St art: August 08, 2023 Sebastian Flores , DO Other Provider Active Start: August 08, 2023 Maame Jolley MD Other Provider Active Start: August 08, 2023 John Beyer MD Other Provider Active Start: August 08, 2023 Pravin Meza MD Other Provider Active Start: [facility] 2023 Andi Han , DO Other Provider Active Start: August 08, 2023 Alfonso Kilgore , Other Provider Active Start: August 08, 2023 Elder Varner MD Other Provider Active Start: [facility] 2023 Sury Winkler MD Other Provider Active Start: [facility] 2023 Chyna Molina NP-C Other Provider Active Start: August 08, 2023 Rancho Kay MD Other Provider Active Start: [facility] 2023 José Miguel Willingham MD Other Provider Active Star t: August 08, 2023 El Charles MD Other Provider Active Start: August 08, 2023 Sanket Hammer MD Attending Provider, Other Provider Active Start: August 08, 2023 Vania Chacon MD Other Provider Active Start: [facility] 2023 Tika Monteiro Other Provider Active Start: August 08, 2023 Debbie Dennis DO Other Provider Active Start: August 08, 2023 Krish Lackey MD Other Provider Active Start : August 08, 2023 Mehul Cordon , Other Provider Active Start: August 08, 2023 Sindy Grimes , ANP-BC Other Provider Active Start: August 08, 2023 Pravin Rivers DO Other Provider Active Start: August 08, 2023 Munira Kamara APRN Other Provider Active St art: August 08, 2023 Crystal Casey NP-C Other Provider Active Sta rt: August 08, 2023 Sirisha Holm APRN-FURNACE RELINER-C Other Provider Active Start: August 08, 2023 Team Status: Active Member Role Status Dates Tejas Stevens MD Primary Care Provider Active S tart: August 09, 2023 Geo Thomas , Admit Provider Active Start: August 09, 2023 Megha Arriaga APRN ACNP-BC Other Provider Active Start: August 09, 2023 Fabio Camacho MD Other Provider Active Start: [facility] 2023 Mehul Garrett MD Attending Pr ovider, Other Provider Active Start: August 09, 2023 Mayra Mccarthy MD Other Provider Active St art: August 09, 2023 Sebastian Flores , Other Provider Active Start: August 09, 2023 Maame Jolley MD Other Provider Active Start: August 09, 2023 John Beyer MD Other Provider Active Start: August 09, 2023 Pravin Meza MD Other Provider Active Start: [facility] 2023 Andi Han , Other Provider Active Start: August 09, 2023 Alfonso Kilgore DO Other Provider Active Start: August 09, 2023 Elder Varner MD Other Provider Active Start: [facility] 2023 Sury Winkler MD Other Provider Active Start: [facility] 2023 Chyna Molina NP-C Other Provider Active Start: August 09, 2023 Rancho Kay MD Other Provider Active Start: [facility] 2023 José Miguel Willingham MD Other Provider Active Star t: August 09, 2023 El Charles MD Other Provider Active Start: August 09, 2023 Sanket Hammer MD Other Provider Active Start: [facility] 2023 Tika Monteiro Other Provider Active Start: August 09, 2023 Debbie Dennis DO Other Provider Active Start: August 09, 2023 Krish Lackey MD Other Provider Active Start : August 09, 2023 Mehul Cordon , Other Provider Active Start: August 09, 2023 Sindy Grimes , ANP-BC Other Provider Active Start: August 09, 2023 Pravin Rivers DO Other Provider Active Start: August 09, 2023 Munira Kamara APRN Other Provider Active St art: August 09, 2023 Crystal Casey NP-C Other Provider Active Sta rt: August 09, 2023 Sirisha Holm , UNIT AID-FURNACE RELINER-C Other Provider Active Start: August 09, 2023 Eulogio Ruvalcaba MD Other Provider Active Start : August 09, 2023 Team Status: Active Member Role Status Dates Tejas Stevens MD Primary Care Provider Active S tart: August 15, 2023 Geo Thomas , DO Admit Provider , Attending Provider, Other Provider Active Start: August 15, 2023 Megha Arriaga , UNIT AID ACNP-BC Other Provider Active Start: August 15, 2023 Fabio Camacho MD Other Provider Active Start: [facility] 2023 Mehul Garrett MD Other Provider Active Start: August 15, 2023 Mayra Mccarthy MD Other Provider Active St art: August 15, 2023 Sebastian Flores , Other Provider Active Start: August 15, 2023 Maame Jolley MD Other Provider Active Start: August 15, 2023 John Beyer MD Other Provider Active Start: August 15, 2023 Pravin Meza MD Other Provider Active Start: [facility] 2023 Andi Han , Other Provider Active Start: August 15, 2023 Alfonso Kilgore DO Other Provider Active Start: August 15, 2023 Elder Varner MD Other Provider Active Start: [facility] 2023 Sury Winkler MD Other Provider Active Start: [facility] 2023 Chyna Molina NP-C Other Provider Active Start: August 15, 2023 Rancho Kay MD Other Provider Active Start: [facility] 2023 José Miguel Willingham MD Other Provider Active Star t: August 15, 2023 El Charles MD Other Provider Active Start: August 15, 2023 Sanket Hammer MD Other Provider Active Start: [facility] 2023 Tika Monteiro Other Provider Active Start: August 15, 2023 Debbie Dennis DO Other Provider Active Start: August 15, 2023 Krish Lackey MD Other Provider Active Start : August 15, 2023 Mehul Cordon , Other Provider Active Start: August 15, 2023 Sindy Grimes , ANP-BC Other Provider Active Start: August 15, 2023 Pravin Rivers , Other Provider Active Start: August 15, 2023 Munira Kamara , LEL[place] Other Provider Active St art: August 15, 2023 Crystal Casey , MITER SAW OPERATOR-C Other Provider Active Sta rt: August 15, 2023 Sirisha Holm , UNIT AID-FURNACE RELINER-C Other Provider Active Start: August 15, 2023 Darryl Britt , Other Provider Active Start : August 15, 2023 Rohan Han , STEVIEM Other Provider Active Sta rt: August 15, 2023 Team Status: Active Member Role Status Dates Tejas Stevens MD Primary Care Provider Active S tart: August 15, 2023 Geo Thomas , Admit Provider , Other Provider Active Start: August 15, 2023 Megha Arriaga APRN ACNP-BC Other Provider Active Start: August 15, 2023 Fabio Camacho MD Other Provider Active Start: [facility] 2023 Mehul Garrett MD Other Provider Active Start: August 15, 2023 Mayra Mccarthy MD Other Provider Active St art: August 15, 2023 Sebastian Flores , Other Provider Active Start: August 15, 2023 Maame Jolley MD Other Provider Active Start: August 15, 2023 John Beyer MD Other Provider Active Start: August 15, 2023 Pravin Meza MD Other Provider Active Start: [facility] 2023 Andi Han , Other Provider Active Start: August 15, 2023 Alfonso Kilgore DO Other Provider Active Start: August 15, 2023 Elder Varner MD Other Provider Active Start: [facility] 2023 Sury Winkler MD Other Provider Active Start: [facility] 2023 Chyna Molina NP-C Other Provider Active Start: August 15, 2023 Rancho Kay MD Attending Provider, Other Provider Active Start: August 15, 2023 José Miguel Willingham MD Other Provider Active Star t: August 15, 2023 El Charles MD Other Provider Active Start: August 15, 2023 Sanket Hammer MD Other Provider Active Start: [facility] 2023 Tika Monteiro Other Provider Active Start: August 15, 2023 Debbie Dennis , DO Other Provider Active Start: August 15, 2023 Krish Lackey MD Other Provider Active Start : August 15, 2023 Mehul Cordon , DO Other Provider Active Start: August 15, 2023 Sindy Grimes , ANP-BC Other Provider Active Start: August 15, 2023 Pravin Rivers , DO Other Provider Active Start: August 15, 2023 Munira Kamara APRN Other Provider Active St art: August 15, 2023 Crystal Casey , MITER SAW OPERATOR-C Other Provider Active Sta rt: August 15, 2023 Sirisha Holm APRN-FURNACE RELINER-C Other Provider Active Start: August 15, 2023 Darryl Britt , Other Provider Active Start : August 15, 2023 Rohan Han , DPM Other Provider Active Sta rt: August 15, 2023 Team Status: Active Member Role Status Dates Tejas Stevens MD Primary Care Provider Active S tart: August 16, 2023 Geo Thomas , DO Admit Provider , Other Provider Active Start: August 16, 2023 Megha Arriaga APRN ACNP-BC Other Provider Active Start: August 16, 2023 Fabio Camacho MD Other Provider Active Start: [facility] 2023 Mehul Garrett MD Other Provider Active Start: August 16, 2023 Mayra Mccarthy MD Other Provider Active St art: August 16, 2023 Sebastian Floers , Other Provider Active Start: August 16, 2023 Maame Jolley MD Other Provider Active Start: August 16, 2023 John Beyer MD Other Provider Active Start: August 16, 2023 Pravin Meza MD Other Provider Active Start: [facility] 2023 Andi Han , Other Provider Active Start: August 16, 2023 Alfonso Kilgore , DO Other Provider Active Start: August 16, 2023 Elder Varner MD Other Provider Active Start: [facility] 2023 Sury Winkler MD Other Provider Active Start: [facility] 2023 Chyna Molina , MITER SAW OPERATOR-C Other Provider Active Start: August 16, 2023 Rancho Kay MD Other Provider Active Start: [facility] 2023 José Miguel Willingham MD Other Provider Active Star t: August 16, 2023 El Charles MD Other Provider Active Start: August 16, 2023 Sanket Hammer MD Other Provider Active Start: arch 2023 Tika Monteiro Other Provider Active Start: August 16, 2023 Debbie Dennis , Other Provider Active Start: August 16, 2023 Krish Lackey MD Other Provider Active Start : August 16, 2023 Mehul Cordon , Other Provider Active Start: August 16, 2023 Sindy Grimes , ANP-BC Other Provider Active Start: August 16, 2023 Pravin Rivers , Other Provider Active Start: August 16, 2023 Munira Kamara APRN Other Provider Active St art: August 16, 2023 Crystal Casey MITER SAW OPERATOR-C Other Provider Active Sta rt: August 16, 2023 Sirisha Holm APRN-FURNACE RELINER-C Other Provider Active Start: August 16, 2023 Darryl Britt DO Other Provider Active Start : August 16, 2023 STEVIE ButlerM Other Provider Active Sta rt: August 16, 2023 Morales Dasilva MD Attending Provider Active Start: August 16, 2023 Team Status: Active Member Role Status Dates Tejas Stevens MD Primary Care Provider Active S tart: August 17, 2023 Geo Thomas , Admit Provider , Other Provider Active Start: August 17, 2023 Megha Arriaga APRN ACNP-BC Other Provider Active Start: August 17, 2023 Fabio Camacho MD Other Provider Active Start: [facility] 2023 Mehul Garrett MD Other Provider Active Start: August 17, 2023 Mayra Mccarthy MD Other Provider Active St art: August 17, 2023 Sebastian Flores , Other Provider Active Start: August 17, 2023 Maame Jolley MD Other Provider Active Start: August 17, 2023 John Beyer MD Other Provider Active Start: August 17, 2023 Pravin Meza MD Other Provider Active Start: [facility] 2023 Andi Han , Other Provider Active Start: August 17, 2023 Alfonso Kilgore , Other Provider Active Start: August 17, 2023 Elder Varner MD Other Provider Active Start: [facility] 2023 Sury Winkler MD Other Provider Active Start: [facility] 2023 Chyna Molina NP-C Other Provider Active Start: August 17, 2023 Rancho Kay MD Other Provider Active Start: [facility] 2023 José Miguel Willingham MD Other Provider Active Star t: August 17, 2023 El Charles MD Other Provider Active Start: August 17, 2023 Sanket Hammer MD Other Provider Active Start: [facility] 2023 Tika Monteiro Other Provider Active Start: August 17, 2023 Debbie Dennis , Other Provider Active Start: August 17, 2023 Krish Lackey MD Other Provider Active Start : August 17, 2023 Mehul Cordon , Other Provider Active Start: August 17, 2023 Sindy Grimes , ANP-BC Other Provider Active Start: August 17, 2023 Pravin Rivers DO Other Provider Active Start: August 17, 2023 Munira Kamara APRN Other Provider Active St art: August 17, 2023 Crystal Casey , MITER SAW OPERATOR-C Other Provider Active Sta rt: August 17, 2023 Sirisha Holm APRN-FURNACE RELINER-C Other Provider Active Start: August 17, 2023 Darryl Britt DO Other Provider Active Start : August 17, 2023 Rohan Han DPM Other Provider Active Sta rt: August 17, 2023 Michael Ramírez MD Attending Provider, Other Provider Active Start: August 17, 2023 Team Status: Active Member Role Status Dates Tejas Stevens MD Primary Care Provider Active S tart: August 22, 2023 Geo Thomas , Admit Provider Active Start: August 22, 2023 Megha Arriaga APRN ACNP-BC Other Provider Active Start: August 22, 2023 Fabio Camacho MD Other Provider Active Start: [facility] 2023 Mehul Garrett MD Other Provider Active Start: August 22, 2023 Mayra Mccarthy MD Other Provider Active St art: August 22, 2023 Sebastian Flores , DO Other Provider Active Start: August 22, 2023 Maame Jolley MD Other Provider Active Start: August 22, 2023 John Beyer MD Other Provider Active Start: August 22, 2023 Pravin Meza MD Other Provider Active Start: [facility] 2023 Andi Han , DO Other Provider Active Start: August 22, 2023 Alfonso Kilgore , Other Provider Active Start: August 22, 2023 Elder Varner MD Other Provider Active Start: [facility] 2023 Sury Winkler MD Attending Provider, Other Provider Active Start: August 22, 2023 Chyna Molina NP-C Other Provider Active Start: August 22, 2023 Rancho Kay MD Other Provider Active Start: [facility] 2023 José Miguel Willingham MD Other Provider Active Star t: August 22, 2023 El Charles MD Other Provider Active Start: August 22, 2023 Sanket Hammer MD Other Provider Active Start: [facility] 2023 Tika Monteiro Other Provider Active Start: August 22, 2023 Debbie Dennis DO Other Provider Active Start: August 22, 2023 Krish Lackey MD Other Provider Active Start : August 22, 2023 Mehul Cordon , Other Provider Active Start: August 22, 2023 Sindy Grimes ANP-BC Other Provider Active Start: August 22, 2023 Pravin Rivers , Other Provider Active Start: August 22, 2023 Munira Kamara APRN Other Provider Active St art: August 22, 2023 Crystal Casey NP-C Other Provider Active Sta rt: August 22, 2023 Sirisha Holm APRN-FURNACE RELINER-C Other Provider Active Start: August 22, 2023 Darryl Britt DO Other Provider Active Start : August 22, 2023 Rohan Han DPM Other Provider Active Sta rt: August 22, 2023 Michael Ramírez MD Other Provider Active Start: August 22, 2023 Arnaldo Thomas MD Other Provider Active Start: August 22, 2023 Team Status: Active Member Role Status Dates Tejas Stevens MD Primary Care Provider Active S tart: August 22, 2023 Geo Thomas , Admit Provider Active Start: August 22, 2023 Megha Arriaga APRN ACNP-BC Other Provider Active Start: August 22, 2023 Fabio Camacho MD Other Provider Active Start: [facility] 2023 Mehul Garrett MD Other Provider Active Start: August 22, 2023 Mayra Mccarthy MD Other Provider Active St art: August 22, 2023 Sebastian Flores DO Other Provider Active Start: August 22, 2023 Maame Jolley MD Other Provider Active Start: August 22, 2023 John Beyer MD Other Provider Active Start: August 22, 2023 Pravin Meza MD Other Provider Active Start: [facility] 2023 Andi Han DO Other Provider Active Start: August 22, 2023 Alfonso Kilgore , Other Provider Active Start: August 22, 2023 Elder Varner MD Other Provider Active Start: [facility] 2023 Sury Winkler MD Other Provider Active Start: [facility] 2023 Chyna Molina NP-C Other Provider Active Start: August 22, 2023 Rancho Kay MD Other Provider Active Start: [facility] 2023 José Miguel Willingham MD Other Provider Active Star t: August 22, 2023 El Charles MD Other Provider Active Start: August 22, 2023 Sanket Hammer MD Other Provider Active Start: [facility] 2023 Tika Monteiro Other Provider Active Start: August 22, 2023 Debbie Dennis DO Other Provider Active Start: August 22, 2023 Krish Lackey MD Other Provider Active Start : August 22, 2023 Mehul Cordon DO Other Provider Active Start: August 22, 2023 Sindy Grimes , ANP-BC Other Provider Active Start: August 22, 2023 Pravin Rivers , Other Provider Active Start: August 22, 2023 Munira Kamara APRN Other Provider Active St art: August 22, 2023 Crystal Casey , MITER SAW OPERATOR-C Other Provider Active Sta rt: August 22, 2023 Sirisha Holm , UNIT AID-FURNACE RELINER-C Other Provider Active Start: August 22, 2023 Darryl Britt DO Other Provider Active Start : August 22, 2023 Rohan Han DPM Other Provider Active Sta rt: August 22, 2023 Michael Ramírez MD Other Provider Active Start: August 22, 2023 Arnaldo Thomas MD Attending Provider, Other Provider Active Start: August 22, 2023 Team Status: Active Member Role Status Dates Tejas Stevens MD Primary Care Provider Active S tart: August 23, 2023 Geo Thomas DO Admit Provider Active Start: August 23, 2023 Megha Arriaga UNIT AID ACNP-BC Other Provider Active Start: August 23, 2023 Fabio Camacho MD Other Provider Active Start: [facility] 2023 Mehul Garrett MD Other Provider Active Start: August 23, 2023 Mayra Mccarthy MD Other Provider Active St art: August 23, 2023 Sebastian Flores DO Other Provider Active Start: August 23, 2023 Maame Jolley MD Other Provider Active Start: August 23, 2023 John Beyer MD Other Provider Active Start: August 23, 2023 Pravin Meza MD Other Provider Active Start: [facility] 2023 Andi Han DO Other Provider Active Start: August 23, 2023 Alfonso Kilgore , Other Provider Active Start: August 23, 2023 Elder Varner MD Other Provider Active Start: [facility] 2023 Sury Winkler MD Other Provider Active Start: [facility] 2023 Chyna Molina NP-C Other Provider Active Start: August 23, 2023 Rancho Kay MD Other Provider Active Start: [facility] 2023 José Miguel Willingham MD Other Provider Active Star t: August 23, 2023 El Charles MD Other Provider Active Start: August 23, 2023 Sanket Hammer MD Other Provider Active Start: [facility] 2023 Tika Monteiro Other Provider Active Start: August 23, 2023 Debbie Dennis , Other Provider Active Start: August 23, 2023 Krish Lackey MD Other Provider Active Start : August 23, 2023 Mehul Cordon , DO Other Provider Active Start: August 23, 2023 Sindy Grimes , ANP-BC Other Provider Active Start: August 23, 2023 Pravin Rivers , DO Other Provider Active Start: August 23, 2023 Munira Kamara APRN Other Provider Active St art: August 23, 2023 Crystal Casey NP-C Other Provider Active Sta rt: August 23, 2023 Sirisha Holm APRN-FURNACE RELINER-C Other Provider Active Start: August 23, 2023 Darryl Britt DO Other Provider Active Start : August 23, 2023 Rohan Han DPM Other Provider Active Sta rt: August 23, 2023 Michael Ramírez MD Other Provider Active Start: August 23, 2023 Arnaldo Thomas MD Other Provider Active Start: August 23, 2023 Mariia Reyna MD Attending Provider Active Star t: August 23, 2023 Team Status: Active Member Role Status Dates Tejas Stevens MD Primary Care Provider Active S tart: July 28, 2023 Sanket Hammer MD Attending Provider Active Star t: July 28, 2023 Team Status: Active Member Role Status Dates Tejas Stevens MD Primary Care Provider Active S tart: August 01, 2023 End: August 23, 2023 Geo Thomas DO Admit Provider , Attending Provider, Other Provider Active Start: August 01, 2023 End: August 23, 2023 Sury Winkler MD Other Provider Active Start: [facility] 2023 End: August 23, 2023 Chyna Molina NP-C Other Provider Active Start: August 01, 2023 End: August 23, 2023 Rancho Kay MD Other Provider Active Start: [facility] 2023 End: August 23, 2023 José Miguel Willingham MD Other Provider Active Star t: August 01, 2023 End: August 23, 2023 El Charles MD Other Provider Active Start: August 01, 2023 End: August 23, 2023 Sanket Hammer MD Other Provider Active Start: 2023 End: August 23, 2023 Megha Arriaga APRN ACNP- Other Provider Active Start: August 01, 2023 End: August 23, 2023 Fabio Camacho MD Other Provider Active Start: 2023 End: August 23, 2023 Mehul Garrett MD Other Provider Active Start: August 01, 2023 End: August 23, 2023 Mayra Mccarthy MD Other Provider Active St art: August 01, 2023 End: August 23, 2023 Sebastian Flores DO Other Provider Active Start: August 01, 2023 End: August 23, 2023 Maame Jolley MD Other Provider Active Start: August 01, 2023 End: August 23, 2023 John Beyer MD Other Provider Active Start: August 01, 2023 End: August 23, 2023 Pravin Meza MD Other Provider Active Start: 2023 End: August 23, 2023 Andi Han DO Other Provider Active Start: August 01, 2023 End: August 23, 2023 Alfonso Kilgore DO Other Provider Active Start: August 01, 2023 End: August 23, 2023 Elder Varner MD Other Provider Active Start: 2023 End: August 23, 2023 Carlie Loyola RN Other Provider Active Star t: August 01, 2023 End: August 23, 2023 Nisa Vargas DO Other Provider Active Start : August 01, 2023 End: August 23, 2023 Tonya Doss MD Other Provider Active Start: August 01, 2023 End: August 23, 2023 Oni Doty MD Other Provider Active Start: August 01, 2023 End: August 23, 2023 Nick De MD Other Provider Active St art: August 01, 2023 End: August 23, 2023 Juan Haro MD Other Provider Active Start: August 01, 2023 End: August 23, 2023 Opal Juan APRN Other Provider Active Start : August 01, 2023 End: August 23, 2023 Mari Dinero MD Other Provider Active Start: 2023 End: August 23, 2023 Jermaine Youngblood MD Other Provider Active Start: August 01, 2023 End: August 23, 2023 Fermin More MD Other Provider Active Start: 2023 End: August 23, 2023 Monse Torres , FURNACE RELINER-BC Other Provider Active Sta rt: August 01, 2023 End: August 23, 2023 Sharon Galvan MD Other Provider Active Start: August 01, 2023 End: August 23, 2023 Team Status: Active Member Role Status Dates Tejas Stevens MD Primary Care Provider Active S tart: August 01, 2023 End: August 23, 2023 Geo Thomas , Admit Provider , Other Provider Active Start: August 01, 2023 End: August 23, 2023 Megha Arriaga APRN ACNP-BC Other Provider Active Start: August 01, 2023 End: August 23, 2023 Fabio Camacho MD Other Provider Active Start: 2023 End: August 23, 2023 Mehul Garrett MD Other Provider Active Start: August 01, 2023 End: August 23, 2023 Mayra Mccarthy MD Other Provider Active St art: August 01, 2023 End: August 23, 2023 Sebastian Flores DO Other Provider Active Start: August 01, 2023 End: August 23, 2023 Maame Jolley MD Other Provider Active Start: August 01, 2023 End: August 23, 2023 John Beyer MD Other Provider Active Start: August 01, 2023 End: August 23, 2023 Pravin Meza MD Other Provider Active Start: 2023 End: August 23, 2023 Andi Han DO Other Provider Active Start: August 01, 2023 End: August 23, 2023 Alfonso Kilgore DO Other Provider Active Start: August 01, 2023 End: August 23, 2023 Elder Varner MD Other Provider Active Start: M 2023 End: August 23, 2023 Sury Winkler MD Other Provider Active Start: [facility] 2023 End: August 23, 2023 MARCO ANTONIO Marc Other Provider Active Start: August 01, 2023 End: August 23, 2023 Rancho Kay MD Other Provider Active Start: [facility] 2023 End: August 23, 2023 José Miguel Willingham MD Other Provider Active Star t: August 01, 2023 End: August 23, 2023 El Charles MD Other Provider Active Start: August 01, 2023 End: August 23, 2023 Sanket Hammer MD Other Provider Active Start: [facility] 2023 End: August 23, 2023 Carlie Loyola RN Other Provider Active Star t: August 01, 2023 End: August 23, 2023 Chip Bravo MD Attending Provider, Other Provider Active Start: August 01, 2023 End: August 23, 2023 Alec Carter MD Other Provider Active Start: August 01, 2023 End: August 23, 2023 Deyanira Jaime MD Other Provider Active Start: August 01, 2023 End: August 23, 2023 Team Status: Active Member Role Status Dates Tejas Stevens MD Primary Care Provider Active S tart: August 01, 2023 End: August 23, 2023 Geo Thomas DO Admit Provider , Other Provider Active Start: August 01, 2023 End: August 23, 2023 Megha Arriaga APRN ACNP-BC Other Provider Active Start: August 01, 2023 End: August 23, 2023 Fabio Camacho MD Other Provider Active Start: [facility] 2023 End: August 23, 2023 Mehul Garrett MD Other Provider Active Start: August 01, 2023 End: August 23, 2023 Mayra Mccarthy MD Other Provider Active St art: August 01, 2023 End: August 23, 2023 Sebastian Flores DO Other Provider Active Start: August 01, 2023 End: August 23, 2023 Maame Jolley MD Other Provider Active Start: August 01, 2023 End: August 23, 2023 John Beyer MD Other Provider Active Start: August 01, 2023 End: August 23, 2023 Pravin Meza MD Other Provider Active Start: [facility] 2023 End: August 23, 2023 Andi Han DO Other Provider Active Start: August 01, 2023 End: August 23, 2023 Alfonso Kilgore DO Other Provider Active Start: August 01, 2023 End: August 23, 2023 Elder Varner MD Other Provider Active Start: [facility] 2023 End: August 23, 2023 Sury Winkler MD Attending Provider, Other Provider Active Start: August 01, 2023 End: August 23, 2023 MATTHEW MarcC Other Provider Active Start: August 01, 2023 End: August 23, 2023 Rancho Kay MD Other Provider Active Start: [facility] 2023 End: August 23, 2023 José Miguel Willingham MD Other Provider Active Star t: August 01, 2023 End: August 23, 2023 El Charles MD Other Provider Active Start: August 01, 2023 End: August 23, 2023 Sanket Hammer MD Other Provider Active Start: [facility] 2023 End: August 23, 2023 Team Status: Active Member Role Status Dates Tejas Stevens MD Primary Care Provider Active S tart: August 02, 2023 End: August 23, 2023 Geo Thomas DO Admit Provider Active Start: August 02, 2023 End: August 23, 2023 Megha Arriaga APRN ACNP-BC Other Provider Active Start: August 02, 2023 End: August 23, 2023 Fabio Camacho MD Other Provider Active Start: [facility] 2023 End: August 23, 2023 Mehul Garrett MD Other Provider Active Start: August 02, 2023 End: August 23, 2023 Mayra Mccarthy MD Other Provider Active St art: August 02, 2023 End: August 23, 2023 Sebastian Flores DO Other Provider Active Start: August 02, 2023 End: August 23, 2023 Maame Jolley MD Other Provider Active Start: August 02, 2023 End: August 23, 2023 John Beyer MD Other Provider Active Start: August 02, 2023 End: August 23, 2023 Pravin Meza MD Other Provider Active Start: [facility] 2023 End: August 23, 2023 Andi Han DO Other Provider Active Start: August 02, 2023 End: August 23, 2023 Alfonso Kilgore DO Other Provider Active Start: August 02, 2023 End: August 23, 2023 Elder Varner MD Attending Provider, Other Provider Active Start: August 02, 2023 End: August 23, 2023 Sury Winkler MD Other Provider Active Start: [facility] 2023 End: August 23, 2023 MARCO ANTONIO Marc Other Provider Active Start: August 02, 2023 End: August 23, 2023 Rancho Kay MD Other Provider Active Start: [facility] 2023 End: August 23, 2023 José Miguel Willingham MD Other Provider Active Star t: August 02, 2023 End: August 23, 2023 El Charles MD Other Provider Active Start: August 02, 2023 End: August 23, 2023 Sanket Hammer MD Other Provider Active Start: [facility] 2023 End: August 23, 2023 Eulogio Ruvalcaba MD Other Provider Active Start : August 02, 2023 End: August 23, 2023 Team Status: Active Member Role Status Dates Tejas Stevens MD Primary Care Provider Active S tart: August 04, 2023 End: August 23, 2023 Geo Thomas DO Admit Provider Active Start: August 04, 2023 End: August 23, 2023 Megha Arriaga APRN ACNP-BC Other Provider Active Start: August 04, 2023 End: August 23, 2023 Fabio Camacho MD Other Provider Active Start: [facility] 2023 End: August 23, 2023 Mehul Garrett MD Other Provider Active Start: August 04, 2023 End: August 23, 2023 Mayra Mccarthy MD Other Provider Active St art: August 04, 2023 End: August 23, 2023 Sebastian Flores DO Other Provider Active Start: August 04, 2023 End: August 23, 2023 Maame Jolley MD Other Provider Active Start: August 04, 2023 End: August 23, 2023 John Beyer MD Other Provider Active Start: August 04, 2023 End: August 23, 2023 Pravin Meza MD Other Provider Active Start: [facility] 2023 End: August 23, 2023 Andi Han , Other Provider Active Start: August 04, 2023 End: August 23, 2023 Alfonso Kilgore , Other Provider Active Start: August 04, 2023 End: August 23, 2023 Elder Varner MD Other Provider Active Start: [facility] 2023 End: August 23, 2023 Sury Winkler MD Other Provider Active Start: [facility] 2023 End: August 23, 2023 Chyna Molina NP-C Other Provider Active Start: August 04, 2023 End: August 23, 2023 Rancho Kay MD Other Provider Active Start: [facility] 2023 End: August 23, 2023 José Miguel Willingham MD Other Provider Active Star t: August 04, 2023 End: August 23, 2023 El Charles MD Other Provider Active Start: August 04, 2023 End: August 23, 2023 Sanket Hammer MD Other Provider Active Start: [facility] 2023 End: August 23, 2023 Vania Chacon MD Attending Provider, Other Provider Active Start: August 04, 2023 End: August 23, 2023 Tika Monteiro Other Provider Active Start: August 04, 2023 End: August 23, 2023 Debbie Dennis DO Other Provider Active Start: August 04, 2023 End: August 23, 2023 Krish Lackey MD Other Provider Active Start : August 04, 2023 End: August 23, 2023 Mehul Cordon DO Other Provider Active Start: August 04, 2023 End: August 23, 2023 Sindy Grimes ANP-BC Other Provider Active Start: August 04, 2023 End: August 23, 2023 Pravin Rivers DO Other Provider Active Start: August 04, 2023 End: August 23, 2023 Munira Kamara APRN Other Provider Active St art: August 04, 2023 End: August 23, 2023 Crystal Casey , MITER SAW OPERATOR-C Other Provider Active Sta rt: August 04, 2023 End: August 23, 2023 Sirisha Holm , UNIT AID-FURNACE RELINER-C Other Provider Active Start: August 04, 2023 End: August 23, 2023 Naida Amaya MD Active Start: [facility] 2023 End: August 23, 2023 Team Status: Active Member Role Status Dates Tejas Stevens MD Primary Care Provider Active S tart: August 08, 2023 End: August 23, 2023 Geo Thomas DO Admit Provider Active Start: August 08, 2023 End: August 23, 2023 Megha Arriaga APRN ACNP-BC Other Provider Active Start: August 08, 2023 End: August 23, 2023 Fabio Camacho MD Other Provider Active Start: [facility] 2023 End: August 23, 2023 Mehul Garrett MD Other Provider Active Start: August 08, 2023 End: August 23, 2023 Mayra Mccarthy MD Other Provider Active St art: August 08, 2023 End: August 23, 2023 Sebastian Flores DO Other Provider Active Start: August 08, 2023 End: August 23, 2023 Maame Jolley MD Other Provider Active Start: August 08, 2023 End: August 23, 2023 John Beyer MD Other Provider Active Start: August 08, 2023 End: August 23, 2023 Pravin Meza MD Other Provider Active Start: [facility] 2023 End: August 23, 2023 Andi Han DO Other Provider Active Start: August 08, 2023 End: August 23, 2023 Alfonso Kilgore DO Other Provider Active Start: August 08, 2023 End: August 23, 2023 Elder Varner MD Other Provider Active Start: [facility] 2023 End: August 23, 2023 Sury Winkler MD Other Provider Active Start: [facility] 2023 End: August 23, 2023 MATTHEW MarcC Other Provider Active Start: August 08, 2023 End: August 23, 2023 Rancho Kay MD Other Provider Active Start: [facility] 2023 End: August 23, 2023 José Miguel Willingham MD Other Provider Active Star t: August 08, 2023 End: August 23, 2023 El Charles MD Other Provider Active Start: August 08, 2023 End: August 23, 2023 Sanket Hammer MD Attending Provider, Other Provider Active Start: August 08, 2023 End: August 23, 2023 Vania Chacon MD Other Provider Active Start: [facility] 2023 End: August 23, 2023 Tika Monteiro Other Provider Active Start: August 08, 2023 End: August 23, 2023 Debbie Dennis DO Other Provider Active Start: August 08, 2023 End: August 23, 2023 Krish Lackey MD Other Provider Active Start : August 08, 2023 End: August 23, 2023 Mehul Cordon DO Other Provider Active Start: August 08, 2023 End: August 23, 2023 FLOWER Ruiz-BC Other Provider Active Start: August 08, 2023 End: August 23, 2023 Pravin Rivers DO Other Provider Active Start: August 08, 2023 End: August 23, 2023 Munira Kamara APRN Other Provider Active St art: August 08, 2023 End: August 23, 2023 MATTHEW PortilloC Other Provider Active Sta rt: August 08, 2023 End: August 23, 2023 Sirisha Holm APRN-FURNACE RELINER-C Other Provider Active Start: August 08, 2023 End: August 23, 2023 Team Status: Active Member Role Status Dates Tejas Stevens MD Primary Care Provider Active S tart: August 09, 2023 End: August 23, 2023 Geo Thomas DO Admit Provider Active Start: August 09, 2023 End: August 23, 2023 Megha Arriaga APRN ACNP-BC Other Provider Active Start: August 09, 2023 End: August 23, 2023 Fabio Camacho MD Other Provider Active Start: [facility] 2023 End: August 23, 2023 Mehul Garrett MD Attending Pr ovider, Other Provider Active Start: August 09, 2023 End: August 23, 2023 Mayra Mccarthy MD Other Provider Active St art: August 09, 2023 End: August 23, 2023 Sebastian Flores DO Other Provider Active Start: August 09, 2023 End: August 23, 2023 Maame Jolley MD Other Provider Active Start: August 09, 2023 End: August 23, 2023 John Beyer MD Other Provider Active Start: August 09, 2023 End: August 23, 2023 Pravin Meza MD Other Provider Active Start: [facility] 2023 End: August 23, 2023 Andi Han DO Other Provider Active Start: August 09, 2023 End: August 23, 2023 Alfonso Kilgore DO Other Provider Active Start: August 09, 2023 End: August 23, 2023 Elder Varner MD Other Provider Active Start: [facility] 2023 End: August 23, 2023 Sury Winkler MD Other Provider Active Start: [facility] 2023 End: August 23, 2023 MARCO ANTONIO Marc Other Provider Active Start: August 09, 2023 End: August 23, 2023 Rancho Kay MD Other Provider Active Start: [facility] 2023 End: August 23, 2023 José Miguel Willingham MD Other Provider Active Star t: August 09, 2023 End: August 23, 2023 El Charles MD Other Provider Active Start: August 09, 2023 End: August 23, 2023 Sanket Hammer MD Other Provider Active Start: [facility] 2023 End: August 23, 2023 Tika Monteiro Other Provider Active Start: August 09, 2023 End: August 23, 2023 Debbie Dennis DO Other Provider Active Start: August 09, 2023 End: August 23, 2023 Krish Lackey MD Other Provider Active Start : August 09, 2023 End: August 23, 2023 Mehul Cordon DO Other Provider Active Start: August 09, 2023 End: August 23, 2023 Sindy Grimes , ANP-BC Other Provider Active Start: August 09, 2023 End: August 23, 2023 Pravin Rivers DO Other Provider Active Start: August 09, 2023 End: August 23, 2023 Munira Kamara APRN Other Provider Active St art: August 09, 2023 End: August 23, 2023 Crystal Casey , MITER SAW OPERATOR-C Other Provider Active Sta rt: August 09, 2023 End: August 23, 2023 Sirisha Holm , UNIT AID-FURNACE RELINER-C Other Provider Active Start: August 09, 2023 End: August 23, 2023 Eulogio Ruvalcaba MD Other Provider Active Start : August 09, 2023 End: August 23, 2023 Team Status: Active Member Role Status Caroline Stevens MD Primary Care Provider Active S tart: August 15, 2023 End: August 23, 2023 Geo Thomas DO Admit Provider , Attending Provider, Other Provider Active Start: August 15, 2023 End: August 23, 2023 Megha Arriaga APRN ACNP-BC Other Provider Active Start: August 15, 2023 End: August 23, 2023 Fabio Camacho MD Other Provider Active Start: [facility] 2023 End: August 23, 2023 Mehul Garrett MD Other Provider Active Start: August 15, 2023 End: August 23, 2023 Mayra Mccarthy MD Other Provider Active St art: August 15, 2023 End: August 23, 2023 Sebastian Flores DO Other Provider Active Start: August 15, 2023 End: August 23, 2023 Maame Jolley MD Other Provider Active Start: August 15, 2023 End: August 23, 2023 John Beyer MD Other Provider Active Start: August 15, 2023 End: August 23, 2023 Pravin Meza MD Other Provider Active Start: [facility] 2023 End: August 23, 2023 Andi Han , Other Provider Active Start: August 15, 2023 End: August 23, 2023 Alfonso Kilgore , Other Provider Active Start: August 15, 2023 End: August 23, 2023 Elder Varner MD Other Provider Active Start: [facility] 2023 End: August 23, 2023 Sury Winkler MD Other Provider Active Start: [facility] 2023 End: August 23, 2023 MATTHEW MarcC Other Provider Active Start: August 15, 2023 End: August 23, 2023 Rancho Kay MD Other Provider Active Start: [facility] 2023 End: August 23, 2023 José Miguel Willingham MD Other Provider Active Star t: August 15, 2023 End: August 23, 2023 El Charles MD Other Provider Active Start: August 15, 2023 End: August 23, 2023 Sanket Hammer MD Other Provider Active Start: [facility] 2023 End: August 23, 2023 Tika Monteiro Other Provider Active Start: August 15, 2023 End: August 23, 2023 Debbie Dennis DO Other Provider Active Start: August 15, 2023 End: August 23, 2023 Krish Lackey MD Other Provider Active Start : August 15, 2023 End: August 23, 2023 Mehul Cordon DO Other Provider Active Start: August 15, 2023 End: August 23, 2023 Sindy Grimes ANP-BC Other Provider Active Start: August 15, 2023 End: August 23, 2023 Pravin Rivers DO Other Provider Active Start: August 15, 2023 End: August 23, 2023 Munira Kamara APRN Other Provider Active St art: August 15, 2023 End: August 23, 2023 MARCO ANTONIO Portillo Other Provider Active Sta rt: August 15, 2023 End: August 23, 2023 Sirisha Holm APRN-FURNACE RELINER-C Other Provider Active Start: August 15, 2023 End: August 23, 2023 Darryl Britt DO Other Provider Active Start : August 15, 2023 End: August 23, 2023 Rohan Han DPM Other Provider Active Sta rt: August 15, 2023 End: August 23, 2023 Team Status: Active Member Role Status Dates Tejas Stevens MD Primary Care Provider Active S tart: August 15, 2023 End: August 23, 2023 Geo Thomas DO Admit Provider , Other Provider Active Start: August 15, 2023 End: August 23, 2023 Megha Arriaga APRN ACNP-BC Other Provider Active Start: August 15, 2023 End: August 23, 2023 Fabio Camacho MD Other Provider Active Start: [facility] 2023 End: August 23, 2023 Mehul Garrett MD Other Provider Active Start: August 15, 2023 End: August 23, 2023 Mayra Mccarthy MD Other Provider Active St art: August 15, 2023 End: August 23, 2023 Sebastian Flores DO Other Provider Active Start: August 15, 2023 End: August 23, 2023 Maame Jolley MD Other Provider Active Start: August 15, 2023 End: August 23, 2023 John Beyer MD Other Provider Active Start: August 15, 2023 End: August 23, 2023 Pravin Meza MD Other Provider Active Start: [facility] 2023 End: August 23, 2023 Andi Han DO Other Provider Active Start: August 15, 2023 End: August 23, 2023 Alfonso Kilgore DO Other Provider Active Start: August 15, 2023 End: August 23, 2023 Elder Varner MD Other Provider Active Start: [facility] 2023 End: August 23, 2023 Sury Winkler MD Other Provider Active Start: [facility] 2023 End: August 23, 2023 MARCO ANTONIO Marc Other Provider Active Start: August 15, 2023 End: August 23, 2023 Rancho Kay MD Attending Provider, Other Provider Active Start: August 15, 2023 End: August 23, 2023 José Miguel Willingham MD Other Provider Active Star t: August 15, 2023 End: August 23, 2023 El Charles MD Other Provider Active Start: August 15, 2023 End: August 23, 2023 Sanket Hammer MD Other Provider Active Start: [facility] 2023 End: August 23, 2023 Tika Monteiro Other Provider Active Start: August 15, 2023 End: August 23, 2023 Debbie Dennis DO Other Provider Active Start: August 15, 2023 End: August 23, 2023 Krish Lackey MD Other Provider Active Start : August 15, 2023 End: August 23, 2023 Mehul Cordon DO Other Provider Active Start: August 15, 2023 End: August 23, 2023 Sindy Grimes ANP-BC Other Provider Active Start: August 15, 2023 End: August 23, 2023 Pravin Rivers DO Other Provider Active Start: August 15, 2023 End: August 23, 2023 Munira Kamara APRN Other Provider Active St art: August 15, 2023 End: August 23, 2023 Crystal Casey MITER SAW OPERATOR-C Other Provider Active Sta rt: August 15, 2023 End: August 23, 2023 Sirisha Holm APRN-FURNACE RELINER-C Other Provider Active Start: August 15, 2023 End: August 23, 2023 Darryl Britt DO Other Provider Active Start : August 15, 2023 End: August 23, 2023 Rohan Han DPM Other Provider Active Sta rt: August 15, 2023 End: August 23, 2023 Team Status: Active Member Role Status Dates Tejas Stevens MD Primary Care Provider Active S tart: August 16, 2023 End: August 23, 2023 Geo Thomas DO Admit Provider , Other Provider Active Start: August 16, 2023 End: August 23, 2023 Megha Arriaga APRN ACNP-BC Other Provider Active Start: August 16, 2023 End: August 23, 2023 Fabio Camacoh MD Other Provider Active Start: [facility] 2023 End: August 23, 2023 Mehul Garrett MD Other Provider Active Start: August 16, 2023 End: August 23, 2023 Mayra Mccarthy MD Other Provider Active St art: August 16, 2023 End: August 23, 2023 Sebastian Flores DO Other Provider Active Start: August 16, 2023 End: August 23, 2023 Maame Jolley MD Other Provider Active Start: August 16, 2023 End: August 23, 2023 John Beyer MD Other Provider Active Start: August 16, 2023 End: August 23, 2023 Pravin Meza MD Other Provider Active Start: [facility] 2023 End: August 23, 2023 Andi Han DO Other Provider Active Start: August 16, 2023 End: August 23, 2023 Alfonso Kilgore DO Other Provider Active Start: August 16, 2023 End: August 23, 2023 Elder Varner MD Other Provider Active Start: [facility] 2023 End: August 23, 2023 Sury Winkler MD Other Provider Active Start: [facility] 2023 End: August 23, 2023 MARCO ANTONIO Marc Other Provider Active Start: August 16, 2023 End: August 23, 2023 Rancho Kay MD Other Provider Active Start: [facility] 2023 End: August 23, 2023 José Miguel Willingham MD Other Provider Active Star t: August 16, 2023 End: August 23, 2023 El Charles MD Other Provider Active Start: August 16, 2023 End: August 23, 2023 Sanket Hammer MD Other Provider Active Start: [facility] 2023 End: August 23, 2023 Tika Monteiro Other Provider Active Start: August 16, 2023 End: August 23, 2023 Debbie Dennis DO Other Provider Active Start: August 16, 2023 End: August 23, 2023 Krish Lackey MD Other Provider Active Start : August 16, 2023 End: August 23, 2023 eMhul Cordon DO Other Provider Active Start: August 16, 2023 End: August 23, 2023 Sindy Grimes , ANP-BC Other Provider Active Start: August 16, 2023 End: August 23, 2023 Pravin Rivers DO Other Provider Active Start: August 16, 2023 End: August 23, 2023 Munira Kamara APRN Other Provider Active St art: August 16, 2023 End: August 23, 2023 Crystal Casey , MITER SAW OPERATOR-C Other Provider Active Sta rt: August 16, 2023 End: August 23, 2023 Sirisha Holm UNIT AID-FURNACE RELINER-C Other Provider Active Start: August 16, 2023 End: August 23, 2023 Darryl Britt DO Other Provider Active Start : August 16, 2023 End: August 23, 2023 STEVIE ButlerM Other Provider Active Sta rt: August 16, 2023 End: August 23, 2023 Morales Dasilva MD Attending Provider Active Start: August 16, 2023 End: August 23, 2023 Team Status: Active Member Role Status Dates Tejas Stevens MD Primary Care Provider Active S tart: August 17, 2023 End: August 23, 2023 Geo Thomas DO Admit Provider , Other Provider Active Start: August 17, 2023 End: August 23, 2023 Megha Arriaga APRN ACNP-BC Other Provider Active Start: August 17, 2023 End: August 23, 2023 Fabio Camacho MD Other Provider Active Start: 2023 End: August 23, 2023 Mehul Garrett MD Other Provider Active Start: August 17, 2023 End: August 23, 2023 Mayra Mccarthy MD Other Provider Active St art: August 17, 2023 End: August 23, 2023 Sebastian Flores DO Other Provider Active Start: August 17, 2023 End: August 23, 2023 Maame Jolley MD Other Provider Active Start: August 17, 2023 End: August 23, 2023 John Beyer MD Other Provider Active Start: August 17, 2023 End: August 23, 2023 Pravin Meza MD Other Provider Active Start: [facility] 2023 End: August 23, 2023 Andi Han , Other Provider Active Start: August 17, 2023 End: August 23, 2023 Alfonso Kilgore , Other Provider Active Start: August 17, 2023 End: August 23, 2023 Elder Varner MD Other Provider Active Start: [facility] 2023 End: August 23, 2023 Sury Winkler MD Other Provider Active Start: [facility] 2023 End: August 23, 2023 MATTHEW MarcC Other Provider Active Start: August 17, 2023 End: August 23, 2023 Rancho Kay MD Other Provider Active Start: [facility] 2023 End: August 23, 2023 José Miguel Willingham MD Other Provider Active Star t: August 17, 2023 End: August 23, 2023 El Charles MD Other Provider Active Start: August 17, 2023 End: August 23, 2023 Sanket Hammer MD Other Provider Active Start: [facility] 2023 End: August 23, 2023 Tika Monteiro Other Provider Active Start: August 17, 2023 End: August 23, 2023 Debbie Dennis DO Other Provider Active Start: August 17, 2023 End: August 23, 2023 Krish Lackey MD Other Provider Active Start : August 17, 2023 End: August 23, 2023 Mehul Cordon DO Other Provider Active Start: August 17, 2023 End: August 23, 2023 FLOWER Ruiz-BC Other Provider Active Start: August 17, 2023 End: August 23, 2023 Pravin Rivers DO Other Provider Active Start: August 17, 2023 End: August 23, 2023 Munira Kamara APRN Other Provider Active St art: August 17, 2023 End: August 23, 2023 MARCO ANTONIO Portillo Other Provider Active Sta rt: August 17, 2023 End: August 23, 2023 Sirisha Holm APRN-FURNACE RELINER-C Other Provider Active Start: August 17, 2023 End: August 23, 2023 Darryl Britt DO Other Provider Active Start : August 17, 2023 End: August 23, 2023 Rohan Han DPM Other Provider Active Sta rt: August 17, 2023 End: August 23, 2023 Michael Ramírez MD Attending Provider, Other Provider Active Start: August 17, 2023 End: August 23, 2023 Team Status: Active Member Role Status Dates Tejas Stevens MD Primary Care Provider Active S tart: August 22, 2023 End: August 23, 2023 Geo Thomas DO Admit Provider Active Start: August 22, 2023 End: August 23, 2023 Megha Arriaga APRN ACNP-BC Other Provider Active Start: August 22, 2023 End: August 23, 2023 Fabio Camacho MD Other Provider Active Start: [facility] 2023 End: August 23, 2023 Mehul Garrett MD Other Provider Active Start: August 22, 2023 End: August 23, 2023 Mayra Mccarthy MD Other Provider Active St art: August 22, 2023 End: August 23, 2023 Sebastian Flores DO Other Provider Active Start: August 22, 2023 End: August 23, 2023 Maame Jolley MD Other Provider Active Start: August 22, 2023 End: August 23, 2023 John Beyer MD Other Provider Active Start: August 22, 2023 End: August 23, 2023 Pravin Meza MD Other Provider Active Start: [facility] 2023 End: August 23, 2023 Andi Han DO Other Provider Active Start: August 22, 2023 End: August 23, 2023 Alfonso Kilgore DO Other Provider Active Start: August 22, 2023 End: August 23, 2023 Elder Varner MD Other Provider Active Start: [facility] 2023 End: August 23, 2023 Sury Winkler MD Attending Provider, Other Provider Active Start: August 22, 2023 End: August 23, 2023 Chyna Molina NP-Trell Other Provider Active Start: August 22, 2023 End: August 23, 2023 Rancho Kay MD Other Provider Active Start: [facility] 2023 End: August 23, 2023 José Miguel Willingham MD Other Provider Active Star t: August 22, 2023 End: August 23, 2023 El Charles MD Other Provider Active Start: August 22, 2023 End: August 23, 2023 Sanket Hammer MD Other Provider Active Start: [facility] 2023 End: August 23, 2023 Tika Monteiro Other Provider Active Start: August 22, 2023 End: August 23, 2023 Debbie Dennis DO Other Provider Active Start: August 22, 2023 End: August 23, 2023 Krish Lackey MD Other Provider Active Start : August 22, 2023 End: August 23, 2023 Mehul Cordon DO Other Provider Active Start: August 22, 2023 End: August 23, 2023 Sindy Grimes ANP-BC Other Provider Active Start: August 22, 2023 End: August 23, 2023 Pravin Rivers DO Other Provider Active Start: August 22, 2023 End: August 23, 2023 Munira Kamara APRN Other Provider Active St art: August 22, 2023 End: August 23, 2023 Crystal Casey NP-C Other Provider Active Sta rt: August 22, 2023 End: August 23, 2023 Sirisha Holm APRN-FURNACE RELINER-C Other Provider Active Start: August 22, 2023 End: August 23, 2023 Darryl Britt DO Other Provider Active Start : August 22, 2023 End: August 23, 2023 Rohan Han DPM Other Provider Active Sta rt: August 22, 2023 End: August 23, 2023 Michael Ramírez MD Other Provider Active Start: August 22, 2023 End: August 23, 2023 Arnaldo Thomas MD Other Provider Active Start: August 22, 2023 End: August 23, 2023 Team Status: Active Member Role Status Dates Tejas Stevens MD Primary Care Provider Active S tart: August 22, 2023 End: August 23, 2023 Geo Thomas DO Admit Provider Active Start: August 22, 2023 End: August 23, 2023 Megha Arriaga APRN ACNP-BC Other Provider Active Start: August 22, 2023 End: August 23, 2023 Fabio Camacoh MD Other Provider Active Start: [facility] 2023 End: August 23, 2023 Mehul Garrett MD Other Provider Active Start: August 22, 2023 End: August 23, 2023 Mayra Mccarthy MD Other Provider Active St art: August 22, 2023 End: August 23, 2023 Sebastian Flores DO Other Provider Active Start: August 22, 2023 End: August 23, 2023 Maame Jolley MD Other Provider Active Start: August 22, 2023 End: August 23, 2023 John Beyer MD Other Provider Active Start: August 22, 2023 End: August 23, 2023 Pravin Meza MD Other Provider Active Start: [facility] 2023 End: August 23, 2023 Andi Han DO Other Provider Active Start: August 22, 2023 End: August 23, 2023 Alfonso Kilgore DO Other Provider Active Start: August 22, 2023 End: August 23, 2023 Elder Varner MD Other Provider Active Start: [facility] 2023 End: August 23, 2023 Sury Winkler MD Other Provider Active Start: [facility] 2023 End: August 23, 2023 MARCO ANTONIO Marc Other Provider Active Start: August 22, 2023 End: August 23, 2023 Rancho Kay MD Other Provider Active Start: [facility] 2023 End: August 23, 2023 José Miguel Willingham MD Other Provider Active Star t: August 22, 2023 End: August 23, 2023 El Charles MD Other Provider Active Start: August 22, 2023 End: August 23, 2023 Sanket Hammer MD Other Provider Active Start: [facility] 2023 End: August 23, 2023 Tika Monteiro Other Provider Active Start: August 22, 2023 End: August 23, 2023 Debbie Dennis DO Other Provider Active Start: August 22, 2023 End: August 23, 2023 Krish Lackey MD Other Provider Active Start : August 22, 2023 End: August 23, 2023 Mehul Cordon DO Other Provider Active Start: August 22, 2023 End: August 23, 2023 Sindy Grimes , ANP-BC Other Provider Active Start: August 22, 2023 End: August 23, 2023 Pravin Rivers , Other Provider Active Start: August 22, 2023 End: August 23, 2023 Munira Kamara APRN Other Provider Active St art: August 22, 2023 End: August 23, 2023 Crystal Casey , MITER SAW OPERATOR-C Other Provider Active Sta rt: August 22, 2023 End: August 23, 2023 Sirisha Holm UNIT AID-FURNACE RELINER-C Other Provider Active Start: August 22, 2023 End: August 23, 2023 Darryl Britt DO Other Provider Active Start : August 22, 2023 End: August 23, 2023 Rohan Han DPM Other Provider Active Sta rt: August 22, 2023 End: August 23, 2023 Michael Ramírez MD Other Provider Active Start: August 22, 2023 End: August 23, 2023 Arnaldo Thomas MD Attending Provider, Other Provider Active Start: August 22, 2023 End: August 23, 2023 Team Status: Active Member Role Status Dates Tejas Stevens MD Primary Care Provider Active S tart: August 23, 2023 End: August 23, 2023 Geo Thomas DO Admit Provider Active Start: August 23, 2023 End: August 23, 2023 Megha Arriaga UNIT AID ACNP-BC Other Provider Active Start: August 23, 2023 End: August 23, 2023 Fabio Camacho MD Other Provider Active Start: 2023 End: August 23, 2023 Mehul Garrett MD Other Provider Active Start: August 23, 2023 End: August 23, 2023 Mayra Mccarthy MD Other Provider Active St art: August 23, 2023 End: August 23, 2023 Sebasitan Flores , Other Provider Active Start: August 23, 2023 End: August 23, 2023 aMame Jolley MD Other Provider Active Start: August 23, 2023 End: August 23, 2023 John Beyer MD Other Provider Active Start: August 23, 2023 End: August 23, 2023 Pravin Meza MD Other Provider Active Start: [facility] 2023 End: August 23, 2023 Andi Han , Other Provider Active Start: August 23, 2023 End: August 23, 2023 Alfonso Kilgore , Other Provider Active Start: August 23, 2023 End: August 23, 2023 Elder Varner MD Other Provider Active Start: [facility] 2023 End: August 23, 2023 Sury Winkler MD Other Provider Active Start: [facility] 2023 End: August 23, 2023 Chyna Molina NP-C Other Provider Active Start: August 23, 2023 End: August 23, 2023 Rancho Kay MD Other Provider Active Start: [facility] 2023 End: August 23, 2023 José Miguel Willingham MD Other Provider Active Star t: August 23, 2023 End: August 23, 2023 El Charles MD Other Provider Active Start: August 23, 2023 End: August 23, 2023 Sanket Hammer MD Other Provider Active Start: [facility] 2023 End: August 23, 2023 Tika Monteiro Other Provider Active Start: August 23, 2023 End: August 23, 2023 Debbie Dennis DO Other Provider Active Start: August 23, 2023 End: August 23, 2023 Krish Lackey MD Other Provider Active Start : August 23, 2023 End: August 23, 2023 Mehul Cordon DO Other Provider Active Start: August 23, 2023 End: August 23, 2023 Sindy Grimes , ANP-BC Other Provider Active Start: August 23, 2023 End: August 23, 2023 Pravin Rivers DO Other Provider Active Start: August 23, 2023 End: August 23, 2023 Munira Kamara APRN Other Provider Active St art: August 23, 2023 End: August 23, 2023 Crystal Casey NP-C Other Provider Active Sta rt: August 23, 2023 End: August 23, 2023 Sirisha Holm APRN-FURNACE RELINER-C Other Provider Active Start: August 23, 2023 End: August 23, 2023 Darryl Britt DO Other Provider Active Start : August 23, 2023 End: August 23, 2023 Rohan Han DPM Other Provider Active Sta rt: August 23, 2023 End: August 23, 2023 Michael Ramírez MD Other Provider Active Start: August 23, 2023 End: August 23, 2023 Arnaldo Thomas MD Other Provider Active Start: August 23, 2023 End: August 23, 2023 Mariia Reyna MD Attending Provider Active Star t: August 23, 2023 End: August 23, 2023 Team Status: Inactive Member Role Status Dates Tejas Stevens MD Primary Care Provider Active S tart: September 29, 2023 End: September 29, 2023 Louise Sotelo APRN Attending Provider Active Start: September 29, 2023 End: September 29, 2023 Team Status: Inactive Member Role Status Dates Tejas Stevens MD Primary Care Provider Active S tart: October 21, 2023 End: October 21, 2023 Sanket Hammer MD Attending Provider Active Star t: October 21, 2023 End: October 21, 2023 Team Status: Inactive Member Role Status Dates Tejas Stevens MD Primary Care Provider Active S tart: November 04, 2023 End: November 04, 2023 Mehul Garrett MD Attending Provider Active Start: November 04, 2023 End: November 04, 2023 Team Status: Active Member Role Status Dates Tejas Stevens MD Primary Care Provider Active S tart: December 23, 2023 Sanket Hammer MD Attending Provider Active Star t: December 23, 2023 Team Status: Inactive Member Role Status Dates Tejas Stevens MD Primary Care Provider Active S tart: January 05, 2024 End: January 05, 2024 Tondra K Mapus , [employer] Attending Provider Active Start: January 05, 2024 End: January 05, 2024 Team Status: Inactive Member Role Status Dates Tejas Stevens MD Primary Care Provider Active S tart: January 06, 2024 End: January 06, 2024 Sanket Hammer MD Attending Provider Active Star t: January 06, 2024 End: January 06, 2024 Goals (unrecognized section and content) Goals may [...] BE BASED ON THE PRIMARY CLINICAL RECORDS. [facility]. provides no warranty or guarantee of the accuracy or completeness of information in this document.
== END 2024-01-06 20:07 | disposition home or self-care (01) ==
LOC: SLEEP 20:06
PROVIDERS: PCP Family Medicine; Visit Provider Family Medicine
DX: G47.33 Obstructive sleep apnea (adult) (pediatric) (principal)
CPT/HCPCS: 95810

== ENCOUNTER 2024-01-16 07:50 | Outpatient (OUT) | payer OTHER, SELFPAY ==
--- NOTE | 2024-01-16 | PCN_ITS ---
CARDIAC STRESS TEST Requesting Physician: Procedure Date: 01/16/2024 This was a Lexiscan stress test with myocardial perfusion imaging performed at the [facility] on 01/16/2024. Informed consent was obtained. An intravenous line was secured. The patient was attached to electrocardiographic monitoring. Baseline vital signs were obtained. Baseline ECG was obtained. Lexiscan 0.4 mg was infused slowly, followed by administration of Cardiolite. The patient then went on to obtain myocardial perfusion imaging. Resting heart rate was 58 BPM and maximum heart rate was 69 BPM. Resting blood pressure was 177/82 and maximum blood pressure was 177/82. Resting ECG showed sinus bradycardia with no ischemic changes. ECG after infusion of Lexiscan showed sinus rhythm with no ischemic changes. SUMMARY OF THE FINDINGS: 1. No evidence of ischemic ECG changes following infusion of Lexiscan. 2. Myocardial perfusion images will be reported separately. 3. Uncontrolled systemic hypertension. MTDD
--- NOTE | 2024-01-16 | NM_ITS ---
Patient Name: ARJUN MOSCOSO MR#: [id number] : 1950 Exam Date: 01/16/2024 Ordering Doctor: DR Ronel Aquino M.D. RADIOLOGY REPORT PROCEDURE: NM YESSICA PERF SPECT REST STR COMPARISON: None. INDICATIONS: Peripheral vascular disease, Coronary atherosclerosis TECHNIQUE: Exam Description: Stress/Rest one day protocol gated SPECT Rest Imagin.2 mCi Tc-99m Cardiolite IV on 01/16/2024 Stress Imaging 30.2 mCi Tc-99m Cardiolite IV on 01/16/2024 Exercise Protocol: 0.4 mg Lexiscan given IV Heart Rate (bpm): Rest: 58 Max: 69 PMHR: 46 Blood Pressure: Rest: 177/82 Max: 177/82 Symptoms: Rest and peak stress ECG findings were normal and the exercise portion of the study was normal per attending physician Dr. Blackman . For more details please see separate cardiac stress test report. FINDINGS: QUALITY OF STUDY: Good. PERFUSION DEFECT: LOCATION: Basal inferior. Mid-inferior. Apical inferior. SIZE: Medium (3-4 segments). SEVERITY: Moderate. TYPE: Persistent. WALL MOTION: Mild hypokinesis: LV SIZE: Enlarged; EDV 140 mL. TID / TCD: None; 1.1 LVEF: Abnormal. Calculated EF 55%. SUMMARY: Myocardial perfusion imaging study has ABNORMAL findings. CONCLUSION: 1. Moderate-sized moderate severity defect in the inferior wall, RCA distribution 2. No reversible ischemia 3. Dilated left ventricle, EDV 140 milliliters 4. Borderline low left ventricular ejection fraction of 55% 5. Normal exercise test Dictated by: Fab Lindo MD on 01/16/2024 at 14:36 Approved by: Fba Lindo MD on 01/16/2024 at 14:38
--- NOTE | 2024-01-16 08:30 | CA_ITS ---
Patient Name: ARJUN MOSCOSO MR#: [id number] : 1950 Exam Date: 01/16/2024 Ordering Doctor: DR Ronel Aquino M.D. ECHOCARDIOGRAM REPORT PROCEDURE: CA ECHO DOPPLER COMPLETE INDICATIONS: Diastolic heart failure, hypertension, diabetes COMPARISON: None. DESCRIPTION: COMPLETE ECHOCARDIOGRAM Real-time transthoracic echocardiography with 2D, M-mode, spectral and color flow Doppler performed. QUALITY: Technical quality was good. LEFT VENTRICLE: Normal chamber size. Normal left ventricular wall thickness. Normal systolic function. LV EF: Normal left ventricular ejection fraction, (55%). DIASTOLIC: Diastolic function is indeterminate. ATRIAL SEPTUM: Visually appears intact. LEFT ATRIUM: Moderate dilatation. RIGHT ATRIUM: Moderate dilatation. RIGHT VENTRICLE: Mild dilatation. Normal right ventricular systolic function. TRICUSPID VALVE: Normal mobility and thickness. No stenosis with no regurgitation. Unable to assess right-sided pressures due to lack of measurable tricuspid regurgitation. MITRAL VALVE: Normal mobility and thickness. No evidence of mitral valve stenosis. There is no mitral annular calcification. Mild mitral regurgitation. AORTIC VALVE: Normal trileaflet appearance. Mildly calcified aortic valve. Normal leaflet mobility. No evidence of aortic valve stenosis. No aortic regurgitation. AORTIC ROOT: Normal diameter and appearance. Ascending aorta is normal in size. PULMONIC VALVE: Normal thickness and mobility. No stenosis. No regurgitation. PERICARDIUM: No evidence of pericardial effusion. IVC: Collapses with inspirations. PLEURA: CONCLUSION: 1. Normal left ventricular size and systolic function. LVEF is 55%. 2. Mildly dilated right ventricle with normal systolic function. 3. Mild mitral regurgitation. 4. Unable to assess right-sided pressures due to lack of measurable tricuspid regurgitation. 5. No pericardial effusion. Adult Echocardiography Procedure Report Left Ventricle LVEDD (3.7 - 5.6 cm): 4.65 cm LVESD (2.2 - 4.0 cm): 3.55 cm LVIVS thickness (0.6 - 1.2 cm): 1.22 cm LVPW thickness (0.5 - 1.0 cm): 1.01 cm e': 0.07 m/s E - e': 9.83 LVOT Max Gradient: 2.55 mm[Hg] LVOT Area (cm2): 0.80 m/s Peak Velocity (LVOT): 0.80 m/s Mean Velocity (LVOT): 0.51 m/s LVOT Diameter 2.26 cm Left Atrium LA Volume Index (2D A2C): 45.23 ml/m2 Left Atrium Systolic Dimension: 3.99 cm Mitral Valve MV E to A Ratio: 0.68 Mitral Valve A-Wave Peak Velocity: 1.02 m/s Mitral Valve E-Wave Peak Velocity: 0.70 m/s Right Ventricle Aorta AO Root Diam: 3.86 cm Ascending Ao Diam: 3.32 cm Aortic Valve AoV Area (Peak David): 2.40 cm2, 2.40 cm2 AoV Area (VTI): 2.50 cm2, 2.50 cm2 Peak Velocity(Antegrade Flow): 1.33 m/s Peak Gradient(Antegrade Flow): 7.11 mm[Hg] Mean Velocity(Antegrade Flow): 0.88 m/s Mean Gradient(Antegrade Flow): 3.63 mm[Hg] Velocity Time Integral: 30.59 cm Tricuspid Valve Pulmonic Valve Mean Gradient: 1.72 mm[Hg], 1.93 mm[Hg] Mean Velocity: 0.61 m/s, 0.65 m/s Peak Velocity: 0.89 m/s Peak Gradient: 3.08 mm[Hg], 3.31 mm[Hg] Right Atrium Right Atrium Systolic Pressure: 96.05 ml, 96.05 ml Dictated by: Alec Blackman M.D. on 01/16/2024 at 13:05 Approved by: Alec Blackman M.D. on 01/16/2024 at 13:11
[2024-01-16] MEDS: REGADENOSON 0.4 MG/5 ML SYRINGE IV (10:04)
--- NOTE | 2024-01-16 10:05 | PC.NURSE ---
Nursing Note Cardiac Stress Test Reviewed: Medication, allergies and patient history reviewed. Stress Test: [ x] Patient tolerated stress test well. [ ] Patient unable to tolerate walking on treadmill. Switched to Lexiscan stress test. [ x] No chest pain noted per patient [ ] Chest pain that resolved prior to leaving stress lab. [ x] No dyspnea noted. [ ] Dyspnea that resolved prior to leaving stress lab. [ x] Patient left stress lab asymptomatic and hemodynamically stable. [ ] Patient taken to the Emergency Room due to non-resolving symptoms following stress test. [ ] Patient achieved target heart rate. [ ] Patient unable to achieve target heart rate. [ ] Aminophylline administered as reversal agent to Lexiscan (Regadenoson). [ ] Nitro administered. Nursing Comments:
[2024-01-16 11:51] LABS: Alanine Aminotransferase 28 U/L (16-63); Albumin Globulin Ratio 0.9; Albumin Level 3.4 g/dL (3.4-5.0); Alkaline Phosphatase 99 U/L (46-116); Aspartate Amino Transferase 15 U/L (15-37); Bilirubin Direct 0.1 mg/dL (0.0-0.2); Bilirubin Total 0.3 mg/dL (0.2-1.0); Chol HDL Ratio 2.5; Cholesterol 117 mg/dL (<=200); HDL Cholesterol 47 mg/dL (40-60); Total Protein 7.4 g/dL (6.4-8.2); Triglycerides 165 mg/dL (<=150)
== END 2024-01-16 07:51 | disposition home or self-care (01) ==
PROVIDERS: PCP Family Medicine; Visit Provider Internal Medicine Interventional Cardiology
DX: I73.9 Peripheral vascular disease, unspecified (principal); I25.83 Coronary atherosclerosis due to lipid rich plaque; I50.30 Unspecified diastolic (congestive) heart failure; R68.89 Other general symptoms and signs; E78.5 Hyperlipidemia, unspecified
CPT/HCPCS: 36415; 78452; 80061; 80076; 93017; 93306; A9500; J2785

== ENCOUNTER 2024-02-17 19:43 | Outpatient (OUT) | payer OTHER, SELFPAY ==
--- OUTSIDE RECORDS SUMMARY | 2024-02-17 19:49 | XMS_ITS | CCD ---
Author Organization [facility] Care Team Providers Care Memory Care Program Resident Name Role Phone Louise Sotelo Unavailable DR TEJAS STEVENS Primary Care Unavailable MELVIN ., DR TRENT Gallardo Attending Unavailable DR TRENT PIEDRA Admitting Unavailable GARIMA BUCHANAN Attending Unavailable GARIMA BUCHANAN Admitting Unavailable DR TEJAS STEVENS Primary Care Unavailable LEENA BELTRAN Consulting Unavailable GARIMA BUCHANAN Consulting Unavailable Dhruv Bautista Unavailable Pamela Berry Unavailable MD Dhruv Bautista Attending Provider MD Tejas Stevens Primary Care Provider DO Rico Carr Emergency Provider [phone] MD Brennan Cerrato Admit Provider MD Brennan Cerrato Attending Provider MD Michael Ramírez Other Provider TOY Han Other Provider JULIA Slater Other Provider Unavailable MD Dhruv Bautista Other Provider MARCO ANTONIO Berry Other Provider MD Mayra Youngblood Other Provider [phone] MD Giovanni Ni Other Provider DO Orestes Mejia Attending Provider MD Michael Ramírez Attending Provider DO John Ervin Primary Care Provider LELAND Sotelo Attending Provider TOY Han Attending Provider MD Dhruv Bautista Attending Provider [phone] MD Tejas Stevens Primary Care Provider DO Denice Carred Zeb Emergency Provider [phone] MD Brennan Cerrato Admit Provider MD Michael Ramírez Other Provider TOY Han Other Provider JULIA Slater Other Provider Unavailable MD Dhruv Bautista Other Provider ANDRES Berry-C Pamela Locke Other Provider MD Mayra Youngblood Other Provider MD Giovanni Ni Other Provider DO Orestes Mejia Attending Provider [phone] MD Michael Ramírez Attending Provider DO John Ervin Primary Care Provider LELAND Sotelo Attending Provider TOY Han Attending Provider Michael Ramírez Unavailable Tejas Stevens MD Primary Care Provider Tejas Stevens MD Primary Care Provider [phone] Tejas Stevens MD Unavailable ArcadioDO John Primary Care Provider LELAND Sotelo Attending Provider MD Tejas Stevens Primary Care Provider LELAND Hudson Emergency Provider [phone] MD Arnaldo Thomas Admit Provider MD Arnaldo Thomas Attending Provider MD Michael Ramírez Other Provider TOY Han Other Provider MD Mayra Youngblood Other Provider MD Tello Nava Attending Provider MD Sanket Hammer Other Provider JULIA Slater Other Provider Unavailable MD Dhruv Bautista Other Provider MARCO ANTONIO Berry Other Provider MD Giovanin Ni Other Provider MD Hermes Morton Other Provider MD Rancho Kay Attending Provider DO John Ervin Primary Care Provider LELAND Sotelo Attending Provider MD Tejas Stevens Primary Care Provider [phone] LELAND Hudson Emergency Provider MD Arnaldo Thomas Admit Provider MD Michael Ramírez Other Provider TOY Han Other Provider MD Mayra Youngblood Other Provider MD Sanket Hammer Other Provider JULIA Slater Other Provider Unavailable MD Dhruv Bautista Other Provider MARCO ANTONIO Berry Other Provider MD Giovanni Ni Other Provider [phone] MD Hermes Morton Other Provider DO Geo Thomas Attending Provider MD Rancho Kay Attending Provider DO Geo Thomas Admit Provider LELAND Arriaga Other Provider MD Fabio Camacho Other Provider MD Mehul Garrett Other Provider MD Mayra Mccarthy Other Provider DO Sebastian Flores Other Provider MD Maame Jolley Other Provider [phone] MD John Beyer Other Provider MD Pravin Meza Other Provider DO Andi Han M Other Provider DO Alfonso Kilgore Other Provider MD [facility] Other Provider MD Sury Winkler Other Provider ANDRES Molina-C Chyna Other Provider Unavailable MD Rancho Kay Other Provider MD José Miguel Willingham Other Provider MD [place] Other Provider Tika Monteiro Other Provider Unavailable DO Debbie Dennis Other Provider MD Krish Lackey Other Provider DO Mehlu Cordon Other Provider Sydney ANP-BC Sindy Other Provider DO Pravin Rivers Other Provider LELAND Kamara Other Provider MARCO ANTONIO Casey Other Provider LELAND Holm-PEER TUTOR-C Sirisha Morrison Other Provider [phone] DO Darryl Britt Other Provider Thomas, MD Arnaldo Attending Provider MD Tejas Stevens Primary Care [...] DO Alfonso Kilgore Other Provider MD [facility] Other Provider MD Sury Winkler Other Provider ANDRES Molina-C Chyna Other Provider Unavailable MD Rancho Kay Other Provider MD José Miguel Willingham Other Provider MD [place] Other Provider MD Sanket Hammer Other Provider Tika Monteiro Other Provider Unavailable DO Debbie Dennis Other Provider MD Krish Lackey Other Provider [phone] DO Mehul Cordon Other Provider Sydney, ANP-BC Sindy Other Provider DO Pravin Rivers Other Provider LELAND Kamara Other Provider ANDRES Casey-C Crystal Gallardo Other Provider LELAND Holm-PEER TUTOR-C Sirisha Morrison Other Provider DO Darryl Britt Other Provider [phone] TOY Han Other Provider MD Michael Ramírez Other Provider MD Arnaldo Thomas Attending Provider Michael Ramírez Attending Unavailable Michael Ramírez Admitting Unavailable Dhruv Bautista Attending Unavailable BuehrerDhruv Admitting Unavailable Naderer, Tejas Primary Care Unavailable Naderer, Tejas Primary Care Unavailable Rahul, Rancho Attending Unavailable Rahul, Rancho Admitting Unavailable Buehrer, Dhruv Attending Unavailable Buehrer, Dhruv Admitting Unavailable Naderer, Tejas Primary Care Unavailable John Ervin Primary Care Unavailable Mapus Tondra K Admitting Unavailable Mapus Tondrjovanny K Attending Unavailable Michael Ramírez Admitting Unavailable Michael Ramírez Attending Unavailable Rohan Han Attending Unavailable Rohan Han Admitting Unavailable Michael Ramírez Admitting Unavailable Michael Ramírez Attending Unavailable Naderer, Tejas Primary Care Unavailable Megha Arriaga Consulting Unavailable Leonor Thomaser Admitting UnavailArnaldo Abdullahi Attending Unavailable Fabio Camacho Consulting Unavailable Mehul Garrett Consulting Unavaila Mayra Pascual Consulting Unavailable Sebastian Flores Consulting UnavailMaame Slade Consulting Unavailable John Beyer Consulting Unavailable Pravin Meza Consulting Unavailable Andi Han Consulting Unavailable Alfonso Kilgore Consulting Unavailable Varner, Basem Consulting Unavailable Sury Winkler Consulting Unavailable Chyna Molina Consulting Unavailable Rahul, Rancho Consulting Unavailable Singhandres, José Miguel Consulting Unavailable Melvin El Consulting Unavailable Hay Hammeriz Consulting Unavailable Tika Monteiro Consulting Unavailable Debbie Dennis Consulting Unavailable Krish Lackey Consulting Unavailable Mehul Cordon Consulting UnavailSindy Bell Consulting Unavailable Pravin Rivers Consulting Unavailable Munira Kamara Consulting Unavailable Crystal Casey Consulting Unavailable Sirisha Holm Consulting Unavailable Darryl Britt Consulting Unavailable Rohan Han Consulting Unavailable Michael Ramírez Consulting Unavailable Naderer, Tejas Primary Care Unavailable Michael Ramírez Consulting Unavailable Geo Thomas Attending Unavailabl e ThomasArnaldo ceballos Admitting Unavailable Guille, Rohan A Consulting Unavailable Ford, Mayra F Consulting Unavailable Bakhous, Aziz Consulting Unavailable Gilbert, Richa Consulting Unavailable Buehrer, Dhruv Consulting Unavailable Ruttindeysi, Pamela Locke Consulting Unavailable Raine, Giovanni Guillen Consulting Unavailabl Hermes Galo Consulting UnavailBrennan Chu Admitting Unavailable Naderer, Tejas Primary Care Unavailable Desiree, Consulting Unavailable Orestes Mejia Attending Unavailable Guille, Rohan Petty Consulting Unavailable Gilbert, Richa Consulting Unavailable Buehrer, Dhruv Consulting Unavailable Ruttino, Pamela R Consulting Unavailable Ford, Mohamed F Consulting Unavailable Langenberg, Giovanni T Consulting Unavailabl e Desiree, Admitting Unavailable Desiree, Attending Unavailable NADERER, TEJAS Referring Unavailable NADERER, TEJAS Primary Care Unavailable BAKHOUS, AZIZ Referring Unavailable NADERER, TEJAS Primary Care Unavailable BAKHOUS, HAYIZ Referring Unavailable NADERER, TEJAS Primary Care Unavailable SNEHAL VARGAS I Referring Unavailable NADERER, TEJAS Primary Care Unavailable IGNACIO, RONEL Attending Unavailable LATASHA, SNEHAL Schwartz Attending Unavailable NADERER, TEJAS Referring Unavailable NADERER, TEJAS Primary Care Unavailable KENNETH GONZALES Attending Unavailable NADERER, TEJAS Referring Unavailable NADERER, TEJAS Primary Care Unavailable GUILLE, ROHAN A Attending Unavailable BROWN, ROHAN A Attending Unavailable BROWN, ROHAN A Attending Unavailable BROWN, ROHAN A Attending Unavailable BROWN, ROHAN A Attending Unavailable BROWN, ROHAN A Attending Unavailable BROWN, ROHAN A Attending Unavailable BROWN, ROHAN A Attending Unavailable BROWN, ROHAN A Attending Unavailable MURCEKDARRYL Attending Unavailable MURCEK, DARRYL Paula Attending Unavailable BROWN, ROHAN A Attending Unavailable NADERER, TEJAS Attending Unavailable NADERER, TEJAS Attending Unavailable BROWN, ROHAN A Attending Unavailable BROWN, ROHAN A Attending Unavailable NADERER, TEJAS Attending Unavailable NADERER, TEJAS Attending Unavailable BROWN, ROHAN A Attending Unavailable NADERER, TEJAS Attending Unavailable NADERER, TEJAS Attending Unavailable Allergies Allergy Classification Reported Allergen(s) Allergy Type Date of Onset Reaction(s) Facility (20 sources) Lisinopril; Translations: [LISINOPRIL] Drug Allergy 7 SWELLING, Facial Swelling [facility] (20 sources) metFORMIN; Translations: [METFORMIN] Drug Allergy 7 Other (See Comments) [facility] (1 source) Amino Acids Drug Allergy [facility] Rep[facility] (1 source) metFORMIN Drug Allergy [facility] (14 sources) cefepime; Translations: [CEFEPIME] Drug Allergy 4 Unknown, Hives [facility] (6 sources) Lisinopril Allergy to substance 3 [facility] (1 source) cefepime Drug Allergy 4 [facility] (1 source) Lisinopril Drug Allergy 4 [facility] (1 source) metFORMIN Drug Allergy 4 [facility] Repository Medications Current Medications Medication Drug [...] yet. 0.5 ML dulaglutide 6 MG/ML Auto-Injector [Lilianity] (20 sources) GLP-1 Receptor Agonist Start: 02-06-2022 [...] flash glucose scanning reader (FreeStyle Shawn 2 [place]) (3 sources) Start: 09-29-19 flash glucose scanning reader (FreeStyle Shawn 2 [place]) Active .Route September 29, 2023 12:00am Flash Glucose Scanning [place] (Freestyle Shawn 2 [place]) [facility] (2 sources) Start: 01-05-20 24 Flash Glucose Scanning [place] (Freestyle Shawn 2 [place]) [facility] Active 0 .ROUTE .MEDSUPPLY January 05, 2024 12:00am As directed Flash Glucose Sensor (Freestyle Shawn 2 Sensor) kit (15 sources) Start: 12-02-19 24 Flash Glucose Sensor (Freestyle Shawn 2 Sensor) [...] January 13, 2023 12:00am FreeStyle Shawn 2 [place] - (5 sources) Start: 03-17-2023 FreeStyle Libr e 2 [place] - Use with Shawn 2 sensors SQ [...] day. 0 Active take 1 tablet by shelbie th every eight hours Gabapentin 600 MG 1 [...] 07-23-2023 take 1 tablet by shelbie th once [...] 23, 2023 12:55pm Start: 07-26-2023 End: 08-23-2023 [id number] 200 actuat albuterol 0.09 mg/actuat metered dose inhaler (6 sources) beta2-Adrenergic Agonist Start: 08-23-2023 End: 09-29-2023 Albuterol Sulfate Discontinued 6 PUFF VENT Every 6 hours August 23, 2023 12:00am September 29, 2023 [...] 23, 2023 1:10pm take 1 capsule by mo ut every twelve hours CeleBREX 200 MG 1 [...] 2:31pm docusate sodium 50 mg / sennosides, snf 8.6 mg oral tablet (6 sources) Start: [...] DULoxetine HCl A ctive flash glucose sensor (FreeSt yle Shawn 2 Sensor) (3 sources) Start: 09-29-2023 [...] Start: 10-08-2018 FreeStyle Libr e 14 Day [place] - use with 14 day sensors SQ Daily for 365 days September, Not-Taking Start: 10-08-2018 FreeStyle Libr e 14 Day [place] - use with 14 day sensors SQ [...] tablet Discontinued 80 MG PO Twice daily October 21, 2023 1:38pm November 04, 2023 3:41pm Start: 10-09-2023 End: 10-21-2023 take 1 tablet by mouth twice daily Furosemide (Lasix) 40 mg tablet Discontinued 40 MG PO Twice daily 60 October 09, 2023 1:46pm October 21, 2023 1:41pm Start: 07-23-2023 End: 08-23-2023 take 80 mg by mouth twice daily Furosemide Discontinue d 80 MG PO BID@0800,1600 60 30 July 23, 2023 1:00am August 23, 2023 [...] 0 .ROUTE .COMPLEX February 22, 2023 11:00pm [facility] Start: 02-23-2023 Insulin Lispro (Humalog Kwikpen Insulin) [...] End: 07-23-2023 take 1 tablet by shelbie every twenty-four hours NIFEdipine ER 30 MG 1 tablet on an empty stomach Orally Once a day Active omega-3 acid ethyl esters (snf) 1000 mg oral capsule (12 sources) Start: [...] August 23, 2023 12:55pm polyethylene glycol 3350 67271 mg powder for oral solution (6 sources) [...] Classification Problem Date Documented Da te Episodic/Chronic Administrative/social admission (17 sources) Dietary counseling and surveillance; Translations: [Patient encounter status] Onset: 02-22-2021 Resolved: 02-06-2022 Episodic Cancer of prostate (3 sources) Malignant tumor of prostate; Translations: [Malignant neoplasm [...] and other heart disease; Translations: [Atherosclerosis of [place] arteries of extremities with intermittent claudication, left [...] sources) Long-term current use of insulin; Translations: [senior living (current) use of insulin] Episodic Other aftercare (8 sources) supervisor intermediates (current) use of insulin; Translations: [senior living current use of insulin Z79.4] Onset: 02-22-2021 [...] insufficiency; arrest (adult) (4 sources) Chronic respiratory failure; Translations: [Chronic respiratory failure, unspecified whether with hypoxia or hypercapnia] Onset: 09-26-2023 11-04-2023 Chronic Respiratory failure; insufficiency; [...] Onset: 02-23-2023 02-25-2023 Episodic Unclassified (1 source) Thrombocytosis, unspecified; Translations: [Thrombocytosis, unspecified] Onset: 08-01-2023 Unclassified (1 source) Other acute osteomyelitis, left ankle and foot; Translations: [Other acute osteomyelitis, left ankle and foot] Onset: 03-25-2023 Unclassified (1 source) Consult Onset: 05-12-2023 Past or Other Problems Problem Classification Problem Date Documented Da te Episodic/Chronic Acute and unspecified renal failure (20 sources) Acute renal failure syndrome; Translations: [Acute kidney failure, unspecified] Onset: 08-01-2023 07-16-2023 Episodic Bacterial infection; unspecified site (17 sources) Bacterial infection due to Pseudomonas; Translations: [Other bacterial infections of unspecified site] Onset: 02-23-2023 02-28-2023 Episodic Mood disorders (1 source) Mood disorders Onset: 01-06-2017 01-06-2017 Nausea and vomiting (17 sources) Vomiting; Translations: [Vomiting, unspecified] Onset: 02-23-2023 02-28-2023 Episodic Other aftercare (1 source) supervisor intermediates (current) use of antibiotics; Translations: [supervisor intermediates (current) use of antibiotics] Onset: 02-23-2023 Episodic [...] Test Name Value Interpretation Reference Range Facility 36on 01-19-2024 36 Regarding stress jelani t from 01/16/2024: MD Sirisha Olguin MA Please let the patient know his stress test shows no evidence of ischemia or the need for a cardiac catheterization Thank you Patient also had labs and echo. Were you able to review those as well? Normal [facility] Prostate specific Ag [Mass/V ol]on 01-16-2024 PROSTATIC SPEC ANT <0.01 Normal 0.00-4.00 [facility] Comment on above: Result Comment: The method used for this test is Cuca Fabio DXI chemiluminescent immunoassay. Values obtained by different assay methods cannot be used interchangeably. Performed By: #### C BCA, CMP, 84470-8, 2777-1 #### [facility] ([id number]) [address] [place] [address], [place] [address] Office Visiton 12-29-2023 Follow-up visit [id number] Chelsea Diego JR 1950 M Date Provider Department Center 12/29/2023 RONEL NIXON [facility] Family History Problem Relation Age of Onset Diabetes Mother Family Status - Relation Status Age at Mother Level of Service:26517 [place] OFFICE/OUTPATIENT ESTABLISHED MOD MDM 30 MIN Normal [facility] Albumin [Mass/volume] in Ser um or Plasmaon 12-23-2023 Albumin [Mass/Vol] 3.4 g/dL 2.9-4.4 [facility] Erythrocyte distribution wid th Auto (RBC) [Ratio]on 12-23-2023 Erythrocyte distribution width (RBC) [Ratio] 13.2 % 11.0-15.0 [facility] Estimated glomerular filtrat ion rate (GFR) non- Americanon 12-23-2023 GFR/1.73 sq M.predicted among non-blacks MDRD (S/P/Bld) [Vol rate/Area] 27 mL/min/{1.73_m2} Low >=60 [facility] Hematocrit Auto (Bld) [Volum e fraction]on 12-23-2023 Hematocrit (Bld) [Volume fraction] 32.7 % Low 42.0-54.0 [facility] Hemoglobin [Mass/volume] in Bloodon 12-23-2023 Hemoglobin (Bld) [Mass/Vol] 10.3 g/dL Low 14.0-18.0 [facility] IgA [Mass/volume] in Serum o r Plasmaon 12-23-2023 IgA [Mass/Vol] 377 mg/dL 61-437 [facility] IgG [Mass/volume] in Serum o r Plasmaon 12-23-2023 IgG [Mass/Vol] 1633 mg/dL Abnormal 603-1613 [facility] IgM [Mass/volume] in Serum o r Plasmaon 12-23-2023 IgM [Mass/Vol] 49 mg/dL 15-143 [facility] Iron binding capacity [Mass/ volume] in Serum or Plasmaon 12-23-2023 Iron binding capacity [Mass/Vol] 257.0 ug/dL 250.0-450.0 [facility] Iron saturation [Mass Fracti on] in Serum or Plasmaon 12-23-2023 Iron saturation [Mass fraction] 21.0 % [facility] Laboratory - Chemistry and C hemistry - challengeon 12-23-2023 Albumin [Mass/Vol] 3.2 g/dL Low 3.4-5.0 [facility] Calcium [Mass/Vol] 8.6 mg/dL 8.5-10.1 [facility] Chloride [Moles/Vol] 104 mmol/L 98-107 [facility] CO2 [Moles/Vol] 27.4 mmol/L 21.0-32.0 [facility] Cobalamin (Vitamin B12) [Mass/Vol] 439.0 pg/mL 193.0-986.0 [facility] Creatinine [Mass/Vol] 2.41 mg/dL High 0.70-1.30 [facility] Ferritin [Mass/Vol] 468.0 ng/mL High 26.0-388.0 [facility] GFR/1.73 sq M.predicted MDRD (S/P/Bld) [Vol rate/Area] 32 mL/min/{1.73_m2} Low >=60 [facility] Glucose [Mass/Vol] 177 mg/dL High 74-106 [facility] Iron [Mass/Vol] 54.0 ug/dL Low 65.0-175.0 [facility] Magnesium [Mass/Vol] 2.1 mg/dL 1.8-2.4 [facility] Potassium [Moles/Vol] 4.8 mmol/L 3.5-5.1 [facility] Sodium [Moles/Vol] 137 mmol/L 136-145 [facility] Urate [Mass/Vol] 6.2 mg/dL 3.5-7.2 [facility] Urea nitrogen [Mass/Vol] 44.0 mg/dL High 7.0-18.0 [facility] Urea nitrogen/Creatinine [Mass ratio] 18.3 mg/mg [facility] Laboratory - Urinalysison Protein (U) [Mass/Vol] 129.2 mg/dL High <=11.9 [facility] Leukocytes [#/volume] correc jewel for nucleated erythrocytes in Blood by Automated counon 12-23-2023 WBC corrected for nucl RBC Auto (Bld) [#/Vol] 11.6 10 3/uL High 4.0-11.0 [facility] MCH Auto (RBC) [Entitic mass ]on 12-23-2023 MCH (RBC) [Entitic mass] 29.5 pg 25.9-34.0 [facility] MCHC Auto (RBC) [Mass/Vol]on 12-23-2023 MCHC (RBC) [Mass/Vol] 31.5 g/dL 29.9-35.2 [facility] MCV Auto (RBC) [Entitic vol] on 12-23-2023 MCV (RBC) [Entitic vol] 93.7 fL 80.0-94.0 [facility] No Panel Informationon 12-22 25-Hydroxy Vitamin D Total 28.7 ng/mL [facility] Comment on above: <20 ng/mL Vit D defi cient20-<30 ng/mL Vit D xbotwfsycgqe82-307 ng/mL Vit D sufficient>100 ng/mL Potential Toxicity Folate 9.00 ng/mL 8.60-58.90 [facility] Parathyroid Hormone (Intact) 56 pg/mL 15-65 [facility] Comment on above: Performed at: - [facility] [address] [id number] Director: Alvaro Verde PhD, Phone: [phone] Phosphorus Level 5.2 mg/dL High 2.6-4.7 [facility] Protein Electrophoresis M-Mitesh Not Observed g/dL Not Observed [facility] Protein Electrophoresis Note Comment . [facility] Comment on above: Protein electrophore sis scan will follow via computer,mail, or funding coordinator delivery.Performed at: - [facility] [address] [id number] Director: Alvaro Verde PhD, Phone: [phone] Miscellaneous Test COMMENT . [facility] Comment on above: Test Ordered: [id number] Protein Electro, 24-Hour UrineProtein,Total,Urine 135.6 mg/dL CB Reference Range: Not Estab.Prot,24hr calculated 1932 [H ] mg/24 hr CB Reference Range: 30-150Albumin, U 61.7 % CB Reference Range: .Ejdyv-6-Rpuxdstq, U 5.5 % CB Reference Range: .Gmtrx-4-Xmhcicci, U 5.1 % CB Reference Range: .Beta Globulin, U 11.3 % CB Reference Range: .Gamma Globulin, U 16.4 % CB Reference Range: .M-Mitesh, % Note: % CB Not Observed Reference Range: Not ObservedM-Mitesh, mg/24 hr [employer] [facility] Reference Range: .Please note: Comment CB Reference Range: .Protein electrophoresis scan will follow via computer,mail, or funding coordinator delivery.Performed at: [facility] [employer] [id number] Director: Alvaro Verde PhD, Phone: [phone] Platelet mean volume Auto (B ld) [Entitic vol]on 12-23-2023 Platelet mean volume (Bld) [Entitic vol] 10.1 fL 9.5-13.5 [facility] Platelets Auto (Bld) [#/Vol] on 12-23-2023 Platelets (Bld) [#/Vol] 370 10 3/uL 150-450 [facility] Protein [Mass/time] in 24 ho ur Urineon 12-23-2023 Protein (24H U) [Mass/Time] 1841.1 mg/24hr High <=149.1 [facility] Protein [Mass/volume] in Ser um or Plasmaon 12-23-2023 Protein [Mass/Vol] 7.0 g/dL 6.0-8.5 [facility] RBC Auto (Bld) [#/Vol]on RBC (Bld) [#/Vol] 3.49 10 6/uL Low 4.70-6.10 [facility] Serum globulin measurement ( mass/volume)on 12-23-2023 Globulin (S) [Mass/Vol] 3.6 g/dL 2.2-3.9 [facility] Serum or plasma albumin/glob ulin mass ratioon 12-23-2023 Albumin/Globulin [Mass ratio] 1.0 {ratio} 0.7-1.7 [facility] Serum or plasma alpha 1 glob ulin measurement by electrophoresis (mass/volume)on 12-23-2023 Alpha 1 globulin Elph [Mass/Vol] 0.2 g/dL 0.0-0.4 [facility] Serum or plasma alpha 2 glob ulin measurement by electrophoresis (mass/volume)on 12-23-2023 Alpha 2 globulin Elph [Mass/Vol] 0.9 g/dL 0.4-1.0 [facility] Serum or plasma anion gap de terminationon 12-23-2023 Anion gap [Moles/Vol] 10.4 mmol/L [facility] Serum or plasma beta globuli n measurement by electrophoresis (mass/volume)on 12-23-2023 Beta globulin Elph [Mass/Vol] 1.0 g/dL 0.7-1.3 [facility] Serum or plasma gamma globul in measurement by electrophoresis (mass/volume)on 12-23-2023 Gamma globulin Elph [Mass/Vol] 1.6 g/dL 0.4-1.8 [facility] Serum or plasma immunoelectr ophoresis interpretationon 12-23-2023 Interpretation IEP [Interp] Comment . [facility] Comment on above: No monoclonality det ected. Urine volume measurementon 0 12-23-2023 Specimen volume (U) 1425 mL/24hr [facility] COMPLETE BLOOD COUNTon 10-16 Erythrocyte distribution width (RBC) [Ratio] 16.6 % High 11.5-15.[address] [facility] Comment on above: Performed By: #### C , RENAL, 75541-9, 3084-1 #### [facility] ([id number]) [address] [place] [id number] #### 2731-8, 39526-4 #### [facility] ([id number]) [address], [address] [place] [address] Hematocrit (Bld) [Volume fraction] 24.6 % Low 39-[address] [facility] Comment on above: Performed By: #### C BC, RENAL, 24103-4, 3084-1 #### [facility] [facility] ([id number]) [address] [place] [address] 31781 #### 2731-8, 39718-2 #### [facility] ([id number]) [address], [address] [place] [address] Hemoglobin (Bld) [Mass/Vol] 8.5 g/dL Low 13.0-17.[address] [facility] Comment on above: Performed By: #### C BC, RENAL, , 3083-05 #### [facility] ([id number]) [address] [place] [address] 38606 #### 2731-8, 20388-1 #### [facility] ([id number]) [address], [address] [place] [address] MCH (RBC) [Entitic mass] 29.6 pg Normal 27-[address] [facility] Comment on above: Performed By: #### C BC, RENAL, , 3083-05 #### [facility] ([id number]) [address] [place] [address] 63052 #### 2731-8, 92386-8 #### [facility] ([id number]) [address], [address] [place] [address] MCHC (RBC) [Mass/Vol] 34.5 g/dL Normal 32-36 [facility] Comment on above: Performed By: #### C BC, RENAL, , 3083-05 #### [facility] ([id number]) [address] [place] [address] 79792 #### 2731-8, 96262-0 #### [facility] ([id number]) [address], [address] [place] [address] MCV (RBC) [Entitic vol] 86 fL Normal 80-[address] [facility] Comment on above: Performed By: #### C BC, RENAL, , 3083-05 #### [facility] ([id number]) [address] [place] [address] 44923 #### 2731-8, 90504-1 #### [facility] ([id number]) [address], [address] [place] [address] Platelet mean volume (Bld) [Entitic vol] 7.7 fL Normal 7-[address] [facility] Comment on above: Performed By: #### Trell SYLVESTER, RENAL, , 3083-05 #### [facility] ([id number]) [address] [place] [address] 42143 #### 2731-8, 90357-0 #### [facility] ([id number]) [address], [address] [place] [address] Platelets (Bld) [#/Vol] 344 10*3/uL Normal 150-[address] [facility] Comment on above: Performed By: #### Trell SYLVESTER, RENAL, , 3083-05 #### [facility] ([id number]) [address] [place] [address] 60575 #### 2731-8, 31931-1 #### [facility] ([id number]) [address] [place] [address] RBC COUNT 2.87 X10E12/L Low 4.10-5.[address] [facility] Comment on above: Performed By: #### Trell SYLVESTER, RENAL, , 3083-05 #### [facility] ([id number]) [address] [place] [address] 79837 #### 2731-8, 77332-6 #### [facility] ([id number]) [address] [place] [address] WBC (Bld) [#/Vol] 14.1 10*3/uL High 4.0-11.0 [facility] Comment on above: Performed By: #### Trell BC, RENAL, , 3083-05 #### [facility] ([id number]) [address] [place] [address] 07062 #### 2731-8, 43498-3 #### [facility] ([id number]) [address], [address] [place] [address] MAGNESIUMon 10-17-2023 Magnesium [Mass/Vol] 1.9 mg/dL Normal 1.8-2.6 [facility] Comment on above: Performed By: #### C BC, RENAL, , 3083-05 #### [facility] ([id number]) [address] [place] [address] 08178 #### 2731-8, 09542-5 #### [facility] ([id number]) [address] [place] [address] PROTEIN CREAT RATIOon 2023 RANDOM URINE PROTEIN 9750 mg/L High <120 [facility] Comment on above: Performed By: #### C BCA, CMP, , 2776-05 #### [facility] ([id number]) [address] [place] [address] 37110 U/PRO/BUSINESS TEAM LEADER RATIO CALC 7.49 High <0.2 [facility] Comment on above: Result Comment: Neph rotic Syndrome is associated with ratios >3.5 Performed By: #### C BCA, CMP, , 2776-05 #### [facility] ([id number]) [address] [place] [address] 12436 URINE CREATININE,RDM 130.22 mg/dL Normal [facility] Comment on above: Performed By: #### C BCA, CMP, , 2776-05 #### [facility] ([id number]) [address] [place] [address] 19015 Parathyrin.intact [Mass/Vol] on 10-17-2023 PTH INTACT 55 pg/mL Normal 12-[address] [facility] Comment on above: Performed By: #### C BC, RENAL, , 3083-05 #### [facility] ([id number]) [address] [place] [address] 98940 #### 2731-8, 48267-3 #### [facility] ([id number]) [address] [place] [address] RENAL PANELon 10-17-2023 Albumin [Mass/Vol] 2.7 g/dL Low 3.2-5.3 [facility] Comment on above: Performed By: #### C BC, RENAL, , 3083-1 #### [facility] ([id number]) [address] [place] [address] 25782 #### 2731-8, 92100-1 #### [facility] ([id number]) [address], [address] [place] [address] Anion gap [Moles/Vol] 5 mmol/L Normal 5-15 [facility] Comment on above: Performed By: #### C BC, RENAL, , 3083-05 #### [facility] ([id number]) [address] [place] [address] 83292 #### 2731-8, 17239-9 #### [facility] ([id number]) [address], [address] [place] [address] Calcium [Mass/Vol] 7.9 mg/dL Low 8.5-10.5 [facility] Comment on above: Performed By: #### C BC, RENAL, , 308- #### [facility] ([id number]) [address] [place] [address] 15910 #### 2731-8, 12110-5 #### [facility] ([id number]) [address] [place] [address] Chloride [Moles/Vol] 109 mmol/L Normal 98-109 [facility] Comment on above: Performed By: #### C BC, RENAL, , 3083-05 #### [facility] ([id number]) [address] [place] [address] 95770 #### 2731-8, 00803-6 #### [facility] ([id number]) [address], [address] [place] [address] CO2 [Moles/Vol] 23 mmol/L Normal 22-[address] [facility] Comment on above: Performed By: #### C HIGINIO, RENAL, , 3083-05 #### [facility] ([id number]) [address] [place] [address] 55302 #### 2731-8, 20943-3 #### [facility] ([id number]) [address], [address] [place] [address] Creatinine [Mass/Vol] 1.22 mg/dL High 0.70-1.20 [facility] Comment on above: Result Comment: METH OD TRACEABLE TO IDMS STANDARD Performed By: #### C HIGINIO, RENAL, , 3083-05 #### [facility] ([id number]) [address] [place] [address] 24046 #### 2731-8, 94084-4 #### [facility] ([id number]) [address], [address] [place] [address] GFR/1.73 sq M.predicted among non-blacks MDRD (S/P/Bld) [Vol rate/Area] 63 mL/min/{1.73_m2} Normal >[address] [facility] Comment on above: Result Comment: Reported eGFR is based on the CKD-EPI 2020 equation that does not use a race coefficient. Performed By: #### C BC, RENAL, , 3083-05 #### [facility] ([id number]) [address] [place] [address] 09676 #### 2731-8, 90348-8 #### [facility] ([id number]) [address] [place] [address] Glucose [Mass/Vol] 149 mg/dL High 65-99 [facility] Comment on above: Performed By: #### Trell SYLVESTER, RENAL, , 3083-05 #### [facility] ([id number]) [address] [place] [address] 20848 #### 2731-8, 97842-0 #### [facility] ([id number]) [address] [place] [address] Phosphate [Mass/Vol] 4.7 mg/dL Normal 2.4-4.9 [facility] Comment on above: Performed By: #### Trell SYLVESTER, RENAL, , 3083-05 #### [facility] ([id number]) [address] [place] [address] 30374 #### 2731-8, 34930-9 #### [facility] ([id number]) [address], [address] [place] [address] Potassium [Moles/Vol] 3.8 mmol/L Normal 3.5-5.0 [facility] Comment on above: Performed By: #### Trell SYLVESTER, RENAL, , 3083-05 #### [facility] ([id number]) [address] [place] [address] 55785 #### 2731-8, 52798-1 #### [facility] ([id number]) [address], [address] [place] [address] Sodium [Moles/Vol] 137 mmol/L Normal 134-146 [facility] Comment on above: Performed By: #### Trell BC, RENAL, , 3083-05 #### [facility] ([id number]) [address] [place] [address] 66712 #### 2731-8, 31892-1 #### [facility] ([id number]) [address], [address] [place] [address] Urea nitrogen [Mass/Vol] 23 mg/dL Normal 5-[address] [facility] Comment on above: Performed By: #### C BC, RENAL, , 3084-1 #### [facility] ([id number]) [address] [place] [address] 33988 #### 2731-8, 22299-2 #### [facility] ([id number]) [address] [place] [address] URIC ACIDon 10-17-2023 Urate [Mass/Vol] 6.1 mg/dL Normal 2.6-7.2 [facility] Comment on above: Performed By: #### C BC, RENAL, , 3084-1 #### [facility] ([id number]) [address] [place] [address] 04770 #### 2731-8, 10414-2 #### [facility] ([id number]) [address], [address] [place] [address] URINALYSISon 10-17-2023 Bilirubin Ql (U) Negative Normal NEG [facility] Comment on above: Performed By: #### C BCA, CMP, , 2777-1 #### [facility] ([id number]) [address] [place] [address] 60819 BLOOD/HGB MODERATE Abnormal NEG [facility] Comment on above: Performed By: #### C BCA, CMP, , 27771 #### [facility] ([id number]) [address] [place] [address] 47254 Color (U) YELLOW Normal YELLOW [facility] Comment on above: Performed By: #### C GODFREY, CMP, , 2776-05 #### [facility] ([id number]) [address] [place] [address] 21193 Glucose Ql (U) 100 mg/dL Abnormal NEG [facility] Comment on above: Performed By: #### C GODFREY, CMP, , 2776-05 #### [facility] ([id number]) [address] [place] [address] [place] [address] Hyaline casts LM Ql (Urine sed) 0 to 2 Normal 0-[address] [facility] Comment on above: Performed By: #### C GODFREY, CMP, , 2776-05 #### [facility] ([id number]) [address] [place] [address] 98746 Ketones Ql (U) Negative Normal NEG [facility] Comment on above: Performed By: #### C GODFREY, CMP, , 2776-05 #### [facility] ([id number]) [address] [place] [address] 55462 Leukocyte esterase Test strip Ql (U) Negative Normal NEG [facility] Comment on above: Performed By: #### Trell DONAHUE, CMP, , 2776-05 #### [facility] ([id number]) [address] [place] [address] 96984 Nitrite Ql (U) Negative Normal NEG [facility] Comment on above: Performed By: #### C GODFREY, CMP, , 2776-05 #### [facility] ([id number]) [address] [place] [address] 20920 pH (U) 6.0 [pH] Normal 5.0-8.[address] [facility] Comment on above: Performed By: #### C GODFREY, CMP, , 2776-05 #### [facility] ([id number]) [address] [place] [address] 51638 Protein Ql (U) >[address] [facility] Comment on above: Performed By: #### Trell DONAHUE CMP, , 2776-05 #### [facility] ([id number]) [address] [place] [address] 72858 R.B.CELLS 5 to 10 Normal 0-[address] [facility] Comment on above: Performed By: #### C GODFREY [facility], , 2776-05 #### [facility] ([id number]) [address] [place] [address] 21262 Specific gravity (U) [Rel density] 1.025 Normal 1.003-1.[address] [facility] Comment on above: Performed By: #### Trell DONAHUE [facility], , 2776-05 #### [facility] ([id number]) [address] [place] [address] 38977 SQUAMOUS EPITHELIUM 2 to 5 Normal 0-5 [facility] Comment on above: Performed By: #### Trell DONAHUE [facility], , 2776-05 #### [facility] ([id number]) [address] [place] [address] 37473 TURBIDITY CLEAR Normal CLEAR [facility] Comment on above: Performed By: #### Trell DONAHUE [facility], , 2776-05 #### [facility] ([id number]) [address] [place] [address] 70898 Urobilinogen Qn (U) 0.2 {Bushra'U}/dL Normal <1.[address] [facility] Comment on above: Performed By: #### Trell DONAHUE CMP, , 2776-05 #### [facility] ([id number]) [address] [place] [address] 76381 W.B.CELLS 2 to 5 Normal 0-[address] [facility] Comment on above: Performed By: #### C BCA, CMP, 16483-1, 2777-1 #### [facility] ([id number]) [address] [place] [address] 15142 Vitamin D+Metabolites [Mass/ Vol]on 10-17-2023 VITAMIN D 25 HYD TOT 19.9 ng/mL Low 30-100 [facility] Comment on above: Result Comment: Vitamin D status 25 [place] Vitamin D Deficiency <20 ng/mL Insufficiency 20-29 ng/mL Sufficiency 30-100 ng/mL Toxicity >100 ng/mL NOTE: A pediatric reference range has not been established by the biomedical equipment tech of this kit. The [place] [employer] recommends a Vitamin D level of = or >20ng/mL in infants and children. Performed By: #### C BC, RENAL, 38640-9, 3084-1 #### [facility] ([id number]) [address] [place] [address] 56930 #### 2731-8, 70481-3 #### [facility] ([id number]) [address] [place] [address] Laboratory - Chemistry and C hemistry - challengeon 09-29-2023 Albumin [Mass/Vol] 2.4 g/dL [facility] ALP [Catalytic activity/Vol] 66 U/L [facility] ALT [Catalytic activity/Vol] 13 U/L [facility] AST [Catalytic activity/Vol] 16 U/L [facility] Bilirubin [Mass/Vol] 0.5 mg/dL [facility] Calcium [Mass/Vol] 8.0 mg/dL [facility] Chloride [Moles/Vol] 108 mmol/L [facility] CO2 [Moles/Vol] 19 mmol/L [facility] Creatinine [Mass/Vol] 1.12 mg/dL [facility] Glucose [Mass/Vol] 164 mg/dL [facility] Potassium [Moles/Vol] 5.2 mmol/L [facility] Protein [Mass/Vol] 5.6 g/dL [facility] Sodium [Moles/Vol] 136 mmol/L [facility] Urea nitrogen [Mass/Vol] 39 mg/dL [facility] No Panel Informationon 09-28 Estimated GFR (Non- 70 mL/min [facility] 164 mg/dL [facility] 39 mg/dL [facility] 1.12 mg/dL [facility] 136 mmol/L [facility] 5.2 mmol/L [facility] 108 mmol/L [facility] 19 mmol/L [facility] 8.0 mg/dL [facility] 5.6 g/dL [facility] 2.4 g/dL [facility] 0.5 mg/dL [facility] 16 U/L [facility] 13 U/L [facility] 66 U/L [facility] 70 mL/min [facility] Bedside Glucose 132 [facility] 132 [facility] CBC AND AUTO DIFFon 09-26-19 24 ABSOLUTE BASOPHIL 0.1 X10E9/L Normal 0.0-0.2 [facility] Comment on above: Performed By: #### C ELENITA DONAHUE, , 2776-05 #### [facility] ([id number]) [address] [place] [address] 42224 ABSOLUTE NEUTROPHIL 7.4 X10E9/L High 1.5-6.6 [facility] Comment on above: Performed By: #### C ELENITA DONAHUE, , 27771 #### [facility] ([id number]) [address] [place] [address] 68643 Basophils/100 WBC (Bld) 1.2 % Normal [facility] Comment on above: Performed By: #### C ELENITA DONAHUE, , 2776-05 #### [facility] ([id number]) [address] [place] [address] 19023 Eosinophils (Bld) [#/Vol] 0.3 10*3/uL Normal 0.0-0.[address] [facility] Comment on above: Performed By: #### Trell DONAHUE, [facility], , 2776-05 #### [facility] ([id number]) [address] [place] [address] 43210 Eosinophils/100 WBC (Bld) 3.0 % Normal [facility] Comment on above: Performed By: #### Trell DONAHUE [facility], , 2776-05 #### [facility] ([id number]) [address] [place] [address] 26480 Erythrocyte distribution width (RBC) [Ratio] 17.4 % High 11.5-15.[address] [facility] Comment on above: Performed By: #### Trell DONAHUE [facility], , 2776-05 #### [facility] ([id number]) [address] [place] [address] 67831 Hematocrit (Bld) [Volume fraction] 29.1 % Low 39-[address] [facility] Comment on above: Performed By: #### Trell DONAHUE [facility], , 2776-05 #### [facility] ([id number]) [address] [place] [address] 33415 Hemoglobin (Bld) [Mass/Vol] 9.8 g/dL Low 13.0-17.[address] [facility] Comment on above: Performed By: #### Trell DONAHUE, CMP, , 2776-05 #### [facility] ([id number]) [address] [place] [address] 54285 Lymphocytes (Bld) [#/Vol] 1.6 10*3/uL Normal 1.0-3.[address] [facility] Comment on above: Performed By: #### C GODFREY CMP, , 2776-05 #### [facility] ([id number]) [address] [place] [address] 64370 Lymphocytes/100 WBC (Bld) 15.6 % Normal [facility] Comment on above: Performed By: #### C GODFREY, CMP, , 2776-05 #### [facility] ([id number]) [address] [place] [address] 37714 MCH (RBC) [Entitic mass] 30.1 pg Normal 27-[address] [facility] Comment on above: Performed By: #### C GODFREY CMP, , 2776-05 #### [facility] ([id number]) [address] [place] [address] 30112 MCHC (RBC) [Mass/Vol] 33.7 g/dL Normal 32-36 [facility] Comment on above: Performed By: #### C GODFREY, CMP, , 2776-05 #### [facility] ([id number]) [address] [place] [address] 96970 MCV (RBC) [Entitic vol] 90 fL Normal 80-[address] [facility] Comment on above: Performed By: #### C GODFREY, CMP, , 2776-05 #### [facility] ([id number]) [address] [place] [address] 83357 Monocytes (Bld) [#/Vol] 0.8 10*3/uL Normal 0-0.[address] [facility] Comment on above: Performed By: #### C GODFREY, CMP, , 2776-05 #### [facility] ([id number]) [address] [place] [address] 09883 Monocytes/100 WBC (Bld) 7.5 % Normal [facility] Comment on above: Performed By: #### C GODFREY CMP, , 2776-05 #### [facility] ([id number]) [address] [place] [address] 35046 Neutrophils/100 WBC (Bld) 72.7 % Normal [facility] Comment on above: Performed By: #### Trell DONAHUE, CMP, , 2776-05 #### [facility] ([id number]) [address] [place] [address] 99908 Platelet mean volume (Bld) [Entitic vol] 8.5 fL Normal 7-[address] [facility] Comment on above: Performed By: #### Trell DONAHUE, CMP, , 2776-05 #### [facility] ([id number]) [address] [place] [address] 53496 Platelets (Bld) [#/Vol] 292 10*3/uL Normal 150-[address] [facility] Comment on above: Performed By: #### Trell DONAHUE, CMP, , 2776-05 #### [facility] ([id number]) [address] [place] [address] 17620 RBC COUNT 3.25 X10E12/L Low 4.10-5.[address] [facility] Comment on above: Performed By: #### Trell DONAHUE, CMP, , 2776-05 #### [facility] ([id number]) [address] [place] [address] 39495 WBC (Bld) [#/Vol] 10.1 10*3/uL Normal 4.0-11.0 [facility] Comment on above: Performed By: #### Trell DONAHUE, CMP, , 2776-05 #### [facility] ([id number]) [address] [place] [address] 25465 COMPREHENSIVE METABOLIC PANE Neil 09-26-2023 Albumin [Mass/Vol] 2.4 g/dL Low 3.2-5.3 [facility] Comment on above: Performed By: #### C BCA, CMP, , 2776-05 #### [facility] ([id number]) [address] [place] [address] 76780 ALP [Catalytic activity/Vol] 66 U/L Normal 39-[address] [facility] Comment on above: Performed By: #### C BCA, CMP, , 2776-05 #### [facility] ([id number]) [address] [place] [address] 52862 ALT [Catalytic activity/Vol] 13 U/L Normal 0-[address] [facility] Comment on above: Performed By: #### C BCA, CMP, , 2776-05 #### [facility] ([id number]) [address] [place] [address] 58166 Anion gap [Moles/Vol] 9 mmol/L Normal 5-15 [facility] Comment on above: Performed By: #### C BCA, CMP, , 2776-05 #### [facility] ([id number]) [address] [place] [address] 52682 AST [Catalytic activity/Vol] 16 U/L Normal 0-[address] [facility] Comment on above: Performed By: #### C BCA, CMP, , 2776-05 #### [facility] ([id number]) [address] [place] [address] 09098 Bilirubin [Mass/Vol] 0.5 mg/dL Normal 0.3-1.2 [facility] Comment on above: Performed By: #### C BCA, CMP, , 2776-05 #### [facility] ([id number]) [address] [place] [address] 74017 Calcium [Mass/Vol] 8.0 mg/dL Low 8.5-10.5 [facility] Comment on above: Performed By: #### C ELENITA DONAHUE, , 2776-05 #### [facility] ([id number]) [address] [place] [address] 57734 Chloride [Moles/Vol] 108 mmol/L Normal 98-109 [facility] Comment on above: Performed By: #### C ELENITA DONAHUE, , 2776-05 #### [facility] ([id number]) [address] [place] [address] 32770 CO2 [Moles/Vol] 19 mmol/L Low 22-[address] [facility] Comment on above: Performed By: #### C ELENITA DONAHUE, , 2776-05 #### [facility] ([id number]) [address] [place] [address] 22549 Creatinine [Mass/Vol] 1.12 mg/dL Normal 0.70-1.20 [facility] Comment on above: Result Comment: METH OD TRACEABLE TO IDMS STANDARD Performed By: #### C ELENITA DONAHUE, , 2776-05 #### [facility] ([id number]) [address] [place] [address] 50836 GFR/1.73 sq M.predicted among non-blacks MDRD (S/P/Bld) [Vol rate/Area] 70 mL/min/{1.73_m2} Normal >[address] [facility] Comment on above: Result Comment: Reported eGFR is based on the CKD-EPI 2021 equation that does not use a race coefficient. Performed By: #### C ELENITA DONAHUE, , 2776-05 #### [facility] ([id number]) [address] [place] [address] 43279 Glucose [Mass/Vol] 164 mg/dL High 65-99 [facility] Comment on above: Performed By: #### C ELENITA DONAHUE, , 2777-1 #### [facility] ([id number]) [address] [place] [address] 68251 Potassium [Moles/Vol] 5.2 mmol/L High 3.5-5.0 [facility] Comment on above: Performed By: #### C ELENITA DONAHUE, , 1 #### [facility] ([id number]) [address] [place] [address] 95525 Protein [Mass/Vol] 5.6 g/dL Low 6.0-8.0 [facility] Comment on above: Performed By: #### C ELENITA DONAHUE, , 2776-05 #### [facility] ([id number]) [address] [place] [address] 90574 Sodium [Moles/Vol] 136 mmol/L Normal 134-146 [facility] Comment on above: Performed By: #### C ELENITA DONAHUE, , 2776-05 #### [facility] ([id number]) [address] [place] [address] 83205 Urea nitrogen [Mass/Vol] 39 mg/dL High 5-[address] [facility] Comment on above: Performed By: #### C ELENITA DONAHUE, , 2776-05 #### [facility] ([id number]) [address] [place] [address] 43467 MAGNESIUMon 09-26-2023 Magnesium [Mass/Vol] 1.8 mg/dL Normal 1.8-2.6 [facility] [place] Comment on above: Performed By: #### C ELENITA DONAHUE, , 2776-05 #### [facility] ([id number]) [address] [place] [address] 33839 PHOSPHORUSon 09-26-2023 Phosphate [Mass/Vol] 5.2 mg/dL High 2.4-4.9 [facility] Comment on above: Performed By: #### C BCA, CMP, 54339-6, 2777-1 #### [facility] ([id number]) [address] [place] [address], [place] [address] 36on 09-23-2023 36 We are not his prima ry care team. He was seen at [facility]. He either needs to call his PCP or call [facility]. Normal [facility] BASIC METABOLIC PANELon 08-25 Anion gap [Moles/Vol] 11 mmol/L Normal 7-20 [facility] Comment on above: Performed By: #### L [id number] #### [facility] ([facility]) [address] [place] [address] Calcium [Mass/Vol] 8.1 mg/dL Low 8.6-10.3 [facility] Comment on above: Performed By: #### L [id number] #### [facility] ([facility] [address] [place] [address] Chloride [Moles/Vol] 110 mmol/L High 98-107 [facility] Comment on above: Performed By: #### L [id number] #### [facility] ([facility] [address] [place] [address] CO2 [Moles/Vol] 21 mmol/L Normal 21-31 [facility] Comment on above: Performed By: #### L [id number] #### [facility] ([facility]) [address] [place] [address] Creatinine [Mass/Vol] 1.04 mg/dL Normal 0.70-1.30 [facility] Comment on above: Performed By: #### L [id number] #### [facility] ([facility]) [address] [place] [address] GLOMERULAR FILTRATION RATE ML/MIN/1.73 SQ M.PREDICTED 76.8 mL/min/1.73m*2 Normal >60.0 [facility] Comment on above: Result Comment: [facility]???s estimated glomerular filtration rate (eGFR) [...] individuals. Performed By: #### L [id number] #### [facility] ([facility]) [address] [place] [address] Glucose [Mass/Vol] 78 mg/dL Normal 70-100 [facility] Comment on above: Performed By: #### L [id number] #### [facility] ([facility]) [address] [place] [address] Potassium [Moles/Vol] 4.6 mmol/L Normal 3.5-5.1 [facility] Comment on above: Performed By: #### L [id number] #### [facility] ([facility]) [address] [place] [address] Sodium [Moles/Vol] 137 mmol/L Normal 136-145 [facility] Comment on above: Performed By: #### L [id number] #### [facility] ([facility]) [address] [place] [address] Urea nitrogen [Mass/Vol] 30 mg/dL High 7-25 [facility] Comment on above: Performed By: #### L [id number] #### [facility] ([facility]) [address] [place] [address] UREA NITROGEN/CREATININE (MASS RATIO) IN SER/PLAS 28.8 Normal [facility] Comment on above: Performed By: #### L [id number] #### [facility] ([facility]) [address] [place] [address] CBCon 09-21-2023 Erythrocyte distribution width (RBC) [Ratio] 16.4 % High 11.5-15.0 [facility] Comment on above: Performed By: #### L [id number] #### [facility] [address] [place] [address] ERYTHROCYTE MEAN CORPUSCULAR HEMOGLOBIN CONCENTRATION (G/DL) BY AUTOMATED 32.3 g/dL Normal 32.0-35.0 [facility] Comment on above: Performed By: #### L [id number] #### [facility] ([facility]) [address] [place] [address] Hematocrit (Bld) [Volume fraction] 29.4 % Low 39.0-55.0 [facility] Comment on above: Performed By: #### L [id number] #### [facility] ([facility]) [address] [place] [address] Hemoglobin (Bld) [Mass/Vol] 9.5 g/dL Low 13.0-17.0 [facility] Comment on above: Performed By: #### L [id number] #### [facility] ([facility]) [address] [place] [address] MCH (RBC) [Entitic mass] 29.0 pg Normal 27.0-33.0 [facility] Comment on above: Performed By: #### L [id number] #### [facility] ([facility]) [address] [place] [address] MCV (RBC) [Entitic vol] 89.6 fL Normal 82.0-98.0 [facility] Comment on above: Performed By: #### L [id number] #### [facility] ([facility]) [address] [place] [address] PLATELETS (10*3/UL) IN BLOOD AUTOMATED COUNT 452 10*3/uL High 150-400 [facility] Comment on above: Performed By: #### L [id number] #### [facility] ([facility]) [address] [place] [address] RBC (Bld) [#/Vol] 3.28 10*6/uL Low 4.20-5.70 [facility] Comment on above: Performed By: #### L [id number] #### [facility] ([facility]) [address] [place] [address] WBC (Bld) [#/Vol] 9.80 10*3/uL Normal 4.00-10.60 [facility] Comment on above: Performed By: #### L [id number] #### [facility] ([facility]) [address] [place] [address] MAGNESIUMon 09-21-2023 Magnesium [Mass/Vol] 1.8 mg/dL Low 1.9-2.7 [facility] Comment on above: Performed By: #### L [id number] #### [facility] ([facility]) [address] [place] [address] PHOSPHORUSon 09-21-2023 Magnesium [Mass/Vol] 5.1 mg/dL High 2.5-5.0 [facility] Comment on above: Performed By: #### L [id number] #### [facility] ([facility]) [address] [place] [address] BASIC METABOLIC PANELon 08-25 Anion gap [Moles/Vol] 14 mmol/L Normal 7-20 [facility] Comment on above: Performed By: #### L [id number] #### [facility] ([facility]) [address] [place] [address] Calcium [Mass/Vol] 8.0 mg/dL Low 8.6-10.3 [facility] Comment on above: Performed By: #### L [id number] #### [facility] ([facility]) [address] [place] [address] Chloride [Moles/Vol] 108 mmol/L High 98-107 [facility] Comment on above: Performed By: #### L [id number] #### [facility]) [address] [place] [address] CO2 [Moles/Vol] 19 mmol/L Low 21-31 [facility] Comment on above: Performed By: #### L [id number] #### [facility] ([facility]) [address] [place] [address] Creatinine [Mass/Vol] 1.27 mg/dL Normal 0.70-1.30 [facility] Comment on above: Performed By: #### L [id number] #### [facility] ([facility]) [address] [place] [address] GLOMERULAR FILTRATION RATE ML/MIN/1.73 SQ M.PREDICTED 60.4 mL/min/1.73m*2 Normal >60.0 [facility] Comment on above: Result Comment: [facility]???s estimated glomerular filtration rate (eGFR) [...] individuals. Performed By: #### L [id number] #### [facility] ([facility]) [address] [place] [address] Glucose [Mass/Vol] 66 mg/dL Low 70-100 [facility] Comment on above: Performed By: #### L [id number] #### [facility] ([facility]) [address] [place] [address] Potassium [Moles/Vol] 4.6 mmol/L Normal 3.5-5.1 [facility] Comment on above: Performed By: #### L [id number] #### [facility] ([facility]) [address] [place] [address] Sodium [Moles/Vol] 136 mmol/L Normal 136-145 [facility] Comment on above: Performed By: #### L [id number] #### [facility] ([facility]) [address] [place] [address] Urea nitrogen [Mass/Vol] 34 mg/dL High 7-25 [facility] Comment on above: Performed By: #### L [id number] #### [facility] ([facility]) [address] [place] [address] UREA NITROGEN/CREATININE (MASS RATIO) IN SER/PLAS 26.8 Normal [facility] Comment on above: Performed By: #### L [id number] #### [facility] ([facility]) [address] [place] [address] CBCon 09-20-2023 Erythrocyte distribution width (RBC) [Ratio] 16.9 % High 11.5-15.0 [facility] Comment on above: Performed By: #### L [id number] #### [facility] ([facility]) [address] [place] [address] ERYTHROCYTE MEAN CORPUSCULAR HEMOGLOBIN CONCENTRATION (G/DL) BY AUTOMATED 32.4 g/dL Normal 32.0-35.0 [facility] Comment on above: Performed By: #### L [id number] #### [facility] ([facility]) [address] [place] [address] Hematocrit (Bld) [Volume fraction] 28.4 % Low 39.0-55.0 [facility] Comment on above: Performed By: #### L [id number] #### [facility] ([facility]) [address] [place] [address] Hemoglobin (Bld) [Mass/Vol] 9.2 g/dL Low 13.0-17.0 [facility] Comment on above: Performed By: #### L [id number] #### [facility] ([facility]) [address] [place] [address] MCH (RBC) [Entitic mass] 29.7 pg Normal 27.0-33.0 [facility] Comment on above: Performed By: #### L [id number] #### [facility] [address] [place] [address] MCV (RBC) [Entitic vol] 91.6 fL Normal 82.0-98.0 [facility] Comment on above: Performed By: #### L [id number] #### [facility] ([facility]) [address] [place] [address] PLATELETS (10*3/UL) IN BLOOD AUTOMATED COUNT 495 10*3/uL High 150-400 [facility] Comment on above: Performed By: #### L [id number] #### [facility] ([facility]) [address] [place] [address] RBC (Bld) [#/Vol] 3.10 10*6/uL Low 4.20-5.70 [facility] Comment on above: Performed By: #### L [id number] #### [facility] ([facility]) [address] [place] [address] WBC (Bld) [#/Vol] 10.08 10*3/uL Normal 4.00-10.60 [facility] Comment on above: Performed By: #### L [id number] #### [facility] ([facility]) [address] [place] [address] MAGNESIUMon 09-20-2023 Magnesium [Mass/Vol] 1.8 mg/dL Low 1.9-2.7 [facility] Comment on above: Performed By: #### L [id number] #### [facility] ([facility]) [address] [place] [address] PHOSPHORUSon 09-20-2023 Magnesium [Mass/Vol] 5.3 mg/dL High 2.5-5.0 [facility] Comment on above: Performed By: #### L [id number] #### [facility] ([facility]) [address] [place] [address] BASIC METABOLIC PANELon 08-25 Anion gap [Moles/Vol] 14 mmol/L Normal 7-20 [facility] Comment on above: Performed By: #### L [id number] #### [facility] ([facility]) [address] [place] [address] Calcium [Mass/Vol] 8.1 mg/dL Low 8.6-10.3 [facility] Comment on above: Performed By: #### L [id number] #### [facility] ([facility]) [address] [place] [address] Chloride [Moles/Vol] 109 mmol/L High 98-107 [facility] Comment on above: Performed By: #### L [id number] #### [facility] ([facility]) [address] [place] [address] CO2 [Moles/Vol] 21 mmol/L Normal 21-31 [facility] Comment on above: Performed By: #### L [id number] #### [facility] ([facility]) [address] [place] [address] Creatinine [Mass/Vol] 1.37 mg/dL High 0.70-1.30 [facility] Comment on above: Performed By: #### L [id number] #### [facility] ([facility]) [address] [place] [address] GLOMERULAR FILTRATION RATE ML/MIN/1.73 SQ M.PREDICTED 55.1 mL/min/1.73m*2 Low >60.0 [facility] Comment on above: Result Comment: [facility]???s estimated glomerular filtration rate (eGFR) [...] individuals. Performed By: #### L [id number] #### [facility] ([facility] [address] [place] [address] Glucose [Mass/Vol] 45 mg/dL Invalid Interpretation Code 70-100 [facility] Comment on above: Performed By: #### L [id number] #### [facility] ([facility]) [address] [place] [address] Potassium [Moles/Vol] 4.5 mmol/L Normal 3.5-5.1 [facility] Comment on above: Performed By: #### L [id number] #### [facility] ([facility]) [address] [place] [address] Sodium [Moles/Vol] 139 mmol/L Normal 136-145 [facility] Comment on above: Performed By: #### L [id number] #### [facility] ([facility]) [address] [place] [address] Urea nitrogen [Mass/Vol] 35 mg/dL High 7-25 [facility] Comment on above: Performed By: #### L [id number] #### [facility] ([facility]) [address] [place] [address] UREA NITROGEN/CREATININE (MASS RATIO) IN SER/PLAS 25.5 Normal [facility] Comment on above: Performed By: #### L [id number] #### [facility] ([facility]) [address] [place] [address] CBCon 09-19-2023 Erythrocyte distribution width (RBC) [Ratio] 17.1 % High 11.5-15.0 [facility] Comment on above: Performed By: #### L [id number] #### [facility] ([facility]) [address] [place] [address] ERYTHROCYTE MEAN CORPUSCULAR HEMOGLOBIN CONCENTRATION (G/DL) BY AUTOMATED 31.9 g/dL Low 32.0-35.0 [facility] Comment on above: Performed By: #### L [id number] #### [facility] ([facility]) [address] [place] [address] Hematocrit (Bld) [Volume fraction] 28.8 % Low 39.0-55.0 [facility] Comment on above: Performed By: #### L [id number] #### [facility] [address] [place] [address] Hemoglobin (Bld) [Mass/Vol] 9.2 g/dL Low 13.0-17.0 [facility] Comment on above: Performed By: #### L [id number] #### [facility] ([facility]) [address] [place] [address] MCH (RBC) [Entitic mass] 29.6 pg Normal 27.0-33.0 [facility] Comment on above: Performed By: #### L [id number] #### [facility] ([facility]) [address] [place] [address] MCV (RBC) [Entitic vol] 92.6 fL Normal 82.0-98.0 [facility] Comment on above: Performed By: #### L [id number] #### [facility] ([facility]) [address] [place] [address] PLATELETS (10*3/UL) IN BLOOD AUTOMATED COUNT 512 10*3/uL High 150-400 [facility] Comment on above: Performed By: #### L [id number] #### [facility] ([facility]) [address] [place] [address] RBC (Bld) [#/Vol] 3.11 10*6/uL Low 4.20-5.70 [facility] Comment on above: Performed By: #### L [id number] #### [facility] ([facility]) [address] [place] [address] WBC (Bld) [#/Vol] 9.83 10*3/uL Normal 4.00-10.60 [facility] Comment on above: Performed By: #### L [id number] #### [facility] ([facility]) [address] [place] [address] MAGNESIUMon 09-19-2023 Magnesium [Mass/Vol] 1.9 mg/dL Normal 1.9-2.7 [facility] Comment on above: Performed By: #### L [id number] #### [facility] ([facility]) [address] [place] [address] PHOSPHORUSon 09-19-2023 Magnesium [Mass/Vol] 5.2 mg/dL High 2.5-5.0 [facility] Comment on above: Performed By: #### L [id number] #### [facility] ([facility]) [address] [place] [address] BASIC METABOLIC PANELon 08-25 Anion gap [Moles/Vol] 11 mmol/L Normal 7-20 [facility] Comment on above: Performed By: #### L [id number] #### [facility] [address] [place] [address] Calcium [Mass/Vol] 8.2 mg/dL Low 8.6-10.3 [facility] Comment on above: Performed By: #### L [id number] #### [facility] ([facility]) [address] [place] [address] Chloride [Moles/Vol] 109 mmol/L High 98-107 [facility] Comment on above: Performed By: #### L [id number] #### [facility] ([facility]) [address] [place] [address] CO2 [Moles/Vol] 20 mmol/L Low 21-31 [facility] Comment on above: Performed By: #### L [id number] #### [facility] ([facility]) [address] [place] [address] Creatinine [Mass/Vol] 1.30 mg/dL Normal 0.70-1.30 [facility] Comment on above: Performed By: #### L [id number] #### [facility] ([facility]) [address] [place] [address] GLOMERULAR FILTRATION RATE ML/MIN/1.73 SQ M.PREDICTED 58.7 mL/min/1.73m*2 Low >60.0 [facility] Comment on above: Result Comment: [facility]???s estimated glomerular filtration rate (eGFR) [...] individuals. Performed By: #### L [id number] #### [facility] ([facility]) [address] [place] [address] Glucose [Mass/Vol] 76 mg/dL Normal 70-100 [facility] Comment on above: Performed By: #### L [id number] #### [facility] ([facility]) [address] [place] [address] Potassium [Moles/Vol] 4.3 mmol/L Normal 3.5-5.1 [facility] Comment on above: Performed By: #### L [id number] #### [facility] ([facility]) [address] [place] [address] Sodium [Moles/Vol] 136 mmol/L Normal 136-145 [facility] Comment on above: Performed By: #### L [id number] #### [facility] ([facility]) [address] [place] [address] Urea nitrogen [Mass/Vol] 33 mg/dL High 7-25 [facility] Comment on above: Performed By: #### L [id number] #### [facility] ([facility]) [address] [place] [address] UREA NITROGEN/CREATININE (MASS RATIO) IN SER/PLAS 25.4 Normal [facility] Comment on above: Performed By: #### L [id number] #### [facility] ([facility]) [address] [place] [address] CBCon 09-18-2023 Erythrocyte distribution width (RBC) [Ratio] 17.3 % High 11.5-15.0 [facility] Comment on above: Performed By: #### L [id number] #### [facility] ([facility]) [address] [place] [address] ERYTHROCYTE MEAN CORPUSCULAR HEMOGLOBIN CONCENTRATION (G/DL) BY AUTOMATED 32.1 g/dL Normal 32.0-35.0 [facility] Comment on above: Performed By: #### L [id number] #### [facility] ([facility]) [address] [place] [address] Hematocrit (Bld) [Volume fraction] 27.4 % Low 39.0-55.0 [facility] Comment on above: Performed By: #### L [id number] #### [facility] ([facility]) [address] [place] [address] Hemoglobin (Bld) [Mass/Vol] 8.8 g/dL Low 13.0-17.0 [facility] Comment on above: Performed By: #### L [id number] #### [facility] ([facility]) [address] [place] [address] MCH (RBC) [Entitic mass] 29.4 pg Normal 27.0-33.0 [facility] Comment on above: Performed By: #### L [id number] #### [facility] ([facility]) [address] [place] [address] MCV (RBC) [Entitic vol] 91.6 fL Normal 82.0-98.0 [facility] Comment on above: Performed By: #### L [id number] #### [facility] ([facility]) [address] [place] [address] PLATELETS (10*3/UL) IN BLOOD AUTOMATED COUNT 543 10*3/uL High 150-400 [facility] Comment on above: Performed By: #### L [id number] #### [facility] ([facility]) [address] [place] [address] RBC (Bld) [#/Vol] 2.99 10*6/uL Low 4.20-5.70 [facility] Comment on above: Performed By: #### L [id number] #### [facility] ([facility]) [address] [place] [address] WBC (Bld) [#/Vol] 9.63 10*3/uL Normal 4.00-10.60 [facility] Comment on above: Performed By: #### L [id number] #### [facility] ([facility]) [address] [place] [address] MAGNESIUMon 09-18-2023 Magnesium [Mass/Vol] 2.0 mg/dL Normal 1.9-2.7 [facility] Comment on above: Performed By: #### L [id number] #### [facility] ([facility]) [address] [place] [address] PHOSPHORUSon 09-18-2023 Magnesium [Mass/Vol] 5.1 mg/dL High 2.5-5.0 [facility] Comment on above: Performed By: #### L [id number] #### [facility] ([facility]) [address] [place] [address] BASIC METABOLIC PANELon 08-25 Anion gap [Moles/Vol] 12 mmol/L Normal 7-20 [facility] Comment on above: Performed By: #### L [id number] #### [facility] ([facility]) [address] [place] [address] Calcium [Mass/Vol] 8.6 mg/dL Normal 8.6-10.3 [facility] Comment on above: Performed By: #### L [id number] #### [facility] ([facility]) [address] [place] [address] Chloride [Moles/Vol] 106 mmol/L Normal 98-107 [facility] Comment on above: Performed By: #### L [id number] #### [facility] ([facility]) [address] [place] [address] CO2 [Moles/Vol] 24 mmol/L Normal 21-31 [facility] Comment on above: Performed By: #### L [id number] #### [facility] ([facility]) [address] [place] [address] Creatinine [Mass/Vol] 1.55 mg/dL High 0.70-1.30 [facility] Comment on above: Performed By: #### L [id number] #### [facility] ([facility]) [address] [place] [address] GLOMERULAR FILTRATION RATE ML/MIN/1.73 SQ M.PREDICTED 47.6 mL/min/1.73m*2 Low >60.0 [facility] Comment on above: Result Comment: [facility]???s estimated glomerular filtration rate (eGFR) [...] group of individuals. Performed By: #### L [id number] #### [facility] ([facility]) [address] [place] [address] Glucose [Mass/Vol] 70 mg/dL Normal 70-100 [facility] Comment on above: Performed By: #### L [id number] #### [facility] ([facility]) [address] [place] [address] Potassium [Moles/Vol] 4.5 mmol/L Normal 3.5-5.1 [facility] Comment on above: Performed By: #### L [id number] #### [facility] ([facility]) [address] [place] [address] Sodium [Moles/Vol] 137 mmol/L Normal 136-145 [facility] Comment on above: Performed By: #### L [id number] #### [facility] ([facility]) [address] [facility] [place] [address] Urea nitrogen [Mass/Vol] 40 mg/dL High 7-25 [facility] Comment on above: Performed By: #### L [id number] #### [facility] ([facility]) [address] [place] [address] UREA NITROGEN/CREATININE (MASS RATIO) IN SER/PLAS 25.8 Normal [facility] Comment on above: Performed By: #### L [id number] #### [facility] ([facility]) [address] [place] [address] CBCon 09-17-2023 Erythrocyte distribution width (RBC) [Ratio] 17.1 % High 11.5-15.0 [facility] Comment on above: Performed By: #### L [id number] #### [facility] ([facility]) [address] [place] [address] ERYTHROCYTE MEAN CORPUSCULAR HEMOGLOBIN CONCENTRATION (G/DL) BY AUTOMATED 31.7 g/dL Low 32.0-35.0 [facility] Comment on above: Performed By: #### L [id number] #### [facility] ([facility]) [address] [place] [address] Hematocrit (Bld) [Volume fraction] 31.2 % Low 39.0-55.0 [facility] Comment on above: Performed By: #### L [id number] #### [facility] ([facility]) [address] [place] [address] Hemoglobin (Bld) [Mass/Vol] 9.9 g/dL Low 13.0-17.0 [facility] Comment on above: Performed By: #### L [id number] #### [facility] ([facility]) [address] [place] [address] MCH (RBC) [Entitic mass] 28.5 pg Normal 27.0-33.0 [facility] Comment on above: Performed By: #### L [id number] #### [facility] ([facility] [address] [place] [address] MCV (RBC) [Entitic vol] 89.9 fL Normal 82.0-98.0 [facility] Comment on above: Performed By: #### L [id number] #### [facility] ([facility]) [address] [place] [address] PLATELETS (10*3/UL) IN BLOOD AUTOMATED COUNT 667 10*3/uL High 150-400 [facility] Comment on above: Performed By: #### L [id number] #### [facility] ([facility]) [address] [place] [address] RBC (Bld) [#/Vol] 3.47 10*6/uL Low 4.20-5.70 [facility] Comment on above: Performed By: #### L [id number] #### [facility] ([facility]) [address] [place] [address] WBC (Bld) [#/Vol] 10.60 10*3/uL Normal 4.00-10.60 [facility] Comment on above: Performed By: #### L [id number] #### [facility] ([facility]) [address] [place] [address] MAGNESIUMon 09-17-2023 Magnesium [Mass/Vol] 2.0 mg/dL Normal 1.9-2.7 [facility] Comment on above: Performed By: #### L [id number] #### [facility] ([facility]) [address] [place] [address] PHOSPHORUSon 09-17-2023 Magnesium [Mass/Vol] 5.6 mg/dL High 2.5-5.0 [facility] Comment on above: Performed By: #### L [id number] #### [facility] ([facility]) [address] [place] [address] BASIC METABOLIC PANELon 08-25 Anion gap [Moles/Vol] 15 mmol/L Normal 7-20 [facility] Comment on above: Performed By: #### L [id number] #### [facility] ([facility]) [address] [place] [address] Calcium [Mass/Vol] 8.4 mg/dL Low 8.6-10.3 [facility] Comment on above: Performed By: #### L [id number] #### [facility] ([facility]) [address] [place] [address] Chloride [Moles/Vol] 103 mmol/L Normal 98-107 [facility] Comment on above: Performed By: #### L [id number] #### [facility] ([facility]) [address] [place] [address] CO2 [Moles/Vol] 22 mmol/L Normal 21-31 [facility] Comment on above: Performed By: #### L [id number] #### [facility] ([facility]) [address] [place] [address] Creatinine [Mass/Vol] 2.36 mg/dL High 0.70-1.30 [facility] Comment on above: Performed By: #### L [id number] #### [facility] ([facility]) [address] [place] [address] GLOMERULAR FILTRATION RATE ML/MIN/1.73 SQ M.PREDICTED 28.7 mL/min/1.73m*2 Low >60.0 [facility] Comment on above: Result Comment: [facility]???s estimated glomerular filtration rate (eGFR) [...] individuals. Performed By: #### L [id number] #### [facility] ([facility]) [address] [place] [address] Glucose [Mass/Vol] 36 mg/dL Invalid Interpretation Code 70-100 [facility] Comment on above: Performed By: #### L [id number] #### [facility] [address] [place] [address] Potassium [Moles/Vol] 4.6 mmol/L Normal 3.5-5.1 [facility] Comment on above: Performed By: #### L [id number] #### [facility] ([facility]) [address] [place] [address] Sodium [Moles/Vol] 135 mmol/L Low 136-145 [facility] Comment on above: Performed By: #### L [id number] #### [facility] ([facility]) [address] [place] [address] Urea nitrogen [Mass/Vol] 52 mg/dL High 7-25 [facility] Comment on above: Performed By: #### L [id number] #### [facility] ([facility]) [address] [facility] [address] UREA NITROGEN/CREATININE (MASS RATIO) IN SER/PLAS 22.0 Normal [facility] Comment on above: Performed By: #### L [id number] #### [facility] ([facility]) [address] [place] [address] CBC WITH AUTO DIFFERENTIALon 09-16-2023 Basophils (Bld) [#/Vol] 0.19 10*3/uL Normal 0.00-0.20 [facility] Comment on above: Performed By: #### L [id number] #### [facility] ([facility]) [address] [place] [address] Basophils/100 WBC (Bld) 1.7 % High 0.0-1.0 [facility] Comment on above: Performed By: #### L [id number] #### [facility] ([facility]) [address] [facility] [place] [address] Eosinophils (Bld) [#/Vol] 0.62 10*3/uL High 0.00-0.50 [facility] Comment on above: Performed By: #### L [id number] #### [facility] ([facility]) [address] [place] [address] Eosinophils/100 WBC (Bld) 5.6 % Normal 0.0-6.0 [facility] Comment on above: Performed By: #### L [id number] #### [facility] ([facility]) [address] [place] [address] Erythrocyte distribution width (RBC) [Ratio] 17.2 % High 11.5-15.0 [facility] Comment on above: Performed By: #### L [id number] #### [facility] ([facility]) [address] [address] ERYTHROCYTE MEAN CORPUSCULAR HEMOGLOBIN CONCENTRATION (G/DL) BY AUTOMATED 31.6 g/dL Low 32.0-35.0 [facility] Comment on above: Performed By: #### L [id number] #### [facility] ([facility]) [address] [place] [address] Hematocrit (Bld) [Volume fraction] 29.7 % Low 39.0-55.0 [facility] Comment on above: Performed By: #### L [id number] #### [facility] ([facility]) [address] [place] [address] Hemoglobin (Bld) [Mass/Vol] 9.4 g/dL Low 13.0-17.0 [facility] Comment on above: Performed By: #### L [id number] #### [facility] ([facility]) [address] [place] [address] Immature granulocytes (Bld) [#/Vol] 0.04 10*3/uL Normal 0.00-0.20 [facility] Comment on above: Performed By: #### L [id number] #### [facility] ([facility]) [address] [place] [address] Immature granulocytes/100 WBC (Bld) 0.4 % Normal 0.0-1.0 [facility] Comment on above: Performed By: #### L [id number] #### [facility] [address] [place] [address] Lymphocytes (Bld) [#/Vol] 2.60 10*3/uL Normal 1.20-4.00 [facility] Comment on above: Performed By: #### L [id number] #### [facility] ([facility]) [address] [place] [address] Lymphocytes/100 WBC (Bld) 23.4 % Normal 20.0-45.0 [facility] Comment on above: Performed By: #### L [id number] #### [facility] ([facility]) [address] [place] [address] MCH (RBC) [Entitic mass] 28.7 pg Normal 27.0-33.0 [facility] Comment on above: Performed By: #### L [id number] #### [facility] ([facility]) [address] [place] [address] MCV (RBC) [Entitic vol] 90.8 fL Normal 82.0-98.0 [facility] Comment on above: Performed By: #### L [id number] #### [facility] ([facility]) [address] [place] [address] Monocytes (Bld) [#/Vol] 1.32 10*3/uL High 0.10-1.00 [facility] Comment on above: Performed By: #### L [id number] #### [facility] ([facility]) [address] [place] [address] Monocytes/100 WBC (Bld) 11.9 % Normal 5.0-12.0 [facility] Comment on above: Performed By: #### L [id number] #### [facility] ([facility]) [address] [place] [address] Neutrophils (Bld) [#/Vol] 6.33 10*3/uL Normal 1.60-7.60 [facility] Comment on above: Performed By: #### L [id number] #### [facility] ([facility]) [address] [place] [address] Neutrophils/100 WBC (Bld) 57.0 % Normal 40.0-72.0 [facility] Comment on above: Performed By: #### L [id number] #### [facility] ([facility]) [address] [place] [address] NRBC (PER 100 WBCS) BY AUTOMATED COUNT 0.0 % Normal 0 [facility] Comment on above: Performed By: #### L [id number] #### [facility] ([facility]) [address] [place] [address] PLATELETS (10*3/UL) IN BLOOD AUTOMATED COUNT 633 10*3/uL High 150-400 [facility] Comment on above: Performed By: #### L [id number] #### [facility] ([facility]) [address] [place] [address] RBC (Bld) [#/Vol] 3.27 10*6/uL Low 4.20-5.70 [facility] Comment on above: Performed By: #### L [id number] #### [facility] ([facility]) [address] [place] [address] WBC (Bld) [#/Vol] 11.10 10*3/uL High 4.00-10.60 [facility] Comment on above: Performed By: #### L [id number] #### [facility] ([facility]) [address] [place] [address] MAGNESIUMon 09-16-2023 Magnesium [Mass/Vol] 2.1 mg/dL Normal 1.9-2.7 [facility] Comment on above: Performed By: #### L [id number] #### [facility] ([facility]) [address] [place] [address] PHOSPHORUSon 09-16-2023 Magnesium [Mass/Vol] 6.4 mg/dL High 2.5-5.0 [facility] Comment on above: Performed By: #### L [id number] #### [facility] ([facility]) [address] [place] [address] BASIC METABOLIC PANELon 04- Anion gap [Moles/Vol] 13 mmol/L Normal 7-20 [facility] Comment on above: Performed By: #### L [id number] #### [facility] ([facility]) [address] [place] [address] Calcium [Mass/Vol] 8.3 mg/dL Low 8.6-10.3 [facility] Comment on above: Performed By: #### L [id number] #### [facility] ([facility]) [address] [place] [address] Chloride [Moles/Vol] 102 mmol/L Normal 98-107 [facility] Comment on above: Performed By: #### L [id number] #### [facility] ([facility]) [address] [place] [address] CO2 [Moles/Vol] 24 mmol/L Normal 21-31 [facility] Comment on above: Performed By: #### L [id number] #### [facility] ([facility]) [address] [place] [address] Creatinine [Mass/Vol] 2.10 mg/dL High 0.70-1.30 [facility] Comment on above: Performed By: #### L [id number] #### [facility] ([facility]) [address] [place] [address] GLOMERULAR FILTRATION RATE ML/MIN/1.73 SQ M.PREDICTED 33.0 mL/min/1.73m*2 Low >60.0 [facility] Comment on above: Result Comment: [facility]???s estimated glomerular filtration rate (eGFR) [...] group of individuals. Performed By: #### L [id number] #### [facility] ([facility]) [address] [place] [address] Glucose [Mass/Vol] 71 mg/dL Normal 70-100 [facility] Comment on above: Performed By: #### L [id number] #### [facility] ([facility]) [address] [place] [address] Potassium [Moles/Vol] 4.7 mmol/L Normal 3.5-5.1 [facility] Comment on above: Performed By: #### L [id number] #### [facility] ([facility]) [address] [place] [address] Sodium [Moles/Vol] 134 mmol/L Low 136-145 [facility] Comment on above: Performed By: #### L [id number] #### [facility] ([facility]) [address] [place] [address] Urea nitrogen [Mass/Vol] 61 mg/dL High 7-25 [facility] Comment on above: Performed By: #### L [id number] #### [facility] ([facility]) [address] [place] [address] UREA NITROGEN/CREATININE (MASS RATIO) IN SER/PLAS 29.0 Normal [facility] Comment on above: Performed By: #### L [id number] #### [facility] ([facility]) [address] [place] [address] CBCon 09-15-2023 Erythrocyte distribution width (RBC) [Ratio] 17.2 % High 11.5-15.0 [facility] Comment on above: Performed By: #### L [id number] #### [facility] ([facility]) [address] [place] [address] ERYTHROCYTE MEAN CORPUSCULAR HEMOGLOBIN CONCENTRATION (G/DL) BY AUTOMATED 31.9 g/dL Low 32.0-35.0 [facility] Comment on above: Performed By: #### L [id number] #### [facility] [address] [place] [address] Hematocrit (Bld) [Volume fraction] 29.5 % Low 39.0-55.0 [facility] Comment on above: Performed By: #### L [id number] #### [facility] ([facility]) [address] [place] [address] Hemoglobin (Bld) [Mass/Vol] 9.4 g/dL Low 13.0-17.0 [facility] Comment on above: Performed By: #### L [id number] #### [facility] ([facility]) [address] [place] [address] MCH (RBC) [Entitic mass] 28.7 pg Normal 27.0-33.0 [facility] Comment on above: Performed By: #### L [id number] #### [facility] ([facility]) [address] [place] [address] MCV (RBC) [Entitic vol] 89.9 fL Normal 82.0-98.0 [facility] Comment on above: Performed By: #### L [id number] #### [facility] ([facility]) [address] [place] [address] PLATELETS (10*3/UL) IN BLOOD AUTOMATED COUNT 634 10*3/uL High 150-400 [facility] Comment on above: Performed By: #### L [id number] #### [facility] ([facility]) [address] [place] [address] RBC (Bld) [#/Vol] 3.28 10*6/uL Low 4.20-5.70 [facility] Comment on above: Performed By: #### L [id number] #### [facility] ([facility]) [address] [place] [address] WBC (Bld) [#/Vol] 10.10 10*3/uL Normal 4.00-10.60 [facility] Comment on above: Performed By: #### L [id number] #### [facility] ([facility]) [address] [place] [address] MAGNESIUMon 09-15-2023 Magnesium [Mass/Vol] 2.2 mg/dL Normal 1.9-2.7 [facility] Comment on above: Performed By: #### L [id number] #### [facility] ([facility]) [address] [place] [address] PHOSPHORUSon 09-15-2023 Magnesium [Mass/Vol] 7.5 mg/dL High 2.5-5.0 [facility] Comment on above: Performed By: #### L [id number] #### [facility] ([facility]) [address] [place] [address] BASIC METABOLIC PANELon 08-25 Anion gap [Moles/Vol] 16 mmol/L Normal 7-20 [facility] Comment on above: Performed By: #### L [id number] #### [facility] ([facility]) [address] [place] [address] Calcium [Mass/Vol] 8.4 mg/dL Low 8.6-10.3 [facility] Comment on above: Performed By: #### L [id number] #### [facility] ([facility]) [address] [place] [address] Chloride [Moles/Vol] 103 mmol/L Normal 98-107 [facility] Comment on above: Performed By: #### L [id number] #### [facility] [address] [place] [address] CO2 [Moles/Vol] 21 mmol/L Normal 21-31 [facility] Comment on above: Performed By: #### L [id number] #### [facility] [address] [place] [address] Creatinine [Mass/Vol] 1.98 mg/dL High 0.70-1.30 [facility] Comment on above: Performed By: #### L [id number] #### [facility] ([facility]) [address] [place] [address] GLOMERULAR FILTRATION RATE ML/MIN/1.73 SQ M.PREDICTED 35.4 mL/min/1.73m*2 Low >60.0 [facility] Comment on above: Result Comment: [facility]???s estimated glomerular filtration rate (eGFR) [...] individuals. Performed By: #### L [id number] #### [facility] ([facility]) [address] [place] [address] Glucose [Mass/Vol] 74 mg/dL Normal 70-100 [facility] Comment on above: Performed By: #### L [id number] #### [facility] ([facility]) [address] [place] [address] Potassium [Moles/Vol] 4.8 mmol/L Normal 3.5-5.1 [facility] Comment on above: Performed By: #### L [id number] #### [facility] ([facility]) [address] [place] [address] Sodium [Moles/Vol] 135 mmol/L Low 136-145 [facility] Comment on above: Performed By: #### L [id number] #### [facility] [address] [place] [address] Urea nitrogen [Mass/Vol] 67 mg/dL High 7-25 [facility] Comment on above: Performed By: #### L [id number] #### [facility] ([facility]) [address] [place] [address] UREA NITROGEN/CREATININE (MASS RATIO) IN SER/PLAS 33.8 Normal [facility] Comment on above: Performed By: #### L [id number] #### [facility] ([facility]) [address] [place] [address] CBC WITH AUTO DIFFERENTIALon 09-14-2023 Basophils (Bld) [#/Vol] 0.22 10*3/uL High 0.00-0.20 [facility] Comment on above: Performed By: #### L [id number] #### [facility] ([facility]) [address] [place] [address] Basophils/100 WBC (Bld) 2.0 % High 0.0-1.0 [facility] Comment on above: Performed By: #### L [id number] #### [facility] ([facility]) [address] [place] [address] Eosinophils (Bld) [#/Vol] 0.53 10*3/uL High 0.00-0.50 [facility] Comment on above: Performed By: #### L [id number] #### [facility] ([facility]) [address] [place] [address] Eosinophils/100 WBC (Bld) 4.7 % Normal 0.0-6.0 [facility] Comment on above: Performed By: #### L [id number] #### [facility] ([facility]) [address] [place] [address] Erythrocyte distribution width (RBC) [Ratio] 17.1 % High 11.5-15.0 [facility] Comment on above: Performed By: #### L [id number] #### [facility] ([facility]) [address] [place] [address] ERYTHROCYTE MEAN CORPUSCULAR HEMOGLOBIN CONCENTRATION (G/DL) BY AUTOMATED 32.6 g/dL Normal 32.0-35.0 [facility] Comment on above: Performed By: #### L [id number] #### [facility] ([facility]) [address] [place] [address] Hematocrit (Bld) [Volume fraction] 27.0 % Low 39.0-55.0 [facility] Comment on above: Performed By: #### L [id number] #### [facility] ([facility]) [address] [place] [address] Hemoglobin (Bld) [Mass/Vol] 8.8 g/dL Low 13.0-17.0 [facility] Comment on above: Performed By: #### L [id number] #### [facility] [address] [place] [address] Immature granulocytes (Bld) [#/Vol] 0.04 10*3/uL Normal 0.00-0.20 [facility] Comment on above: Performed By: #### L [id number] #### [facility] ([facility]) [address] [place] [address] Immature granulocytes/100 WBC (Bld) 0.4 % Normal 0.0-1.0 [facility] Comment on above: Performed By: #### L [id number] #### [facility] ([facility]) [address] [place] [address] Lymphocytes (Bld) [#/Vol] 3.56 10*3/uL Normal 1.20-4.00 [facility] Comment on above: Performed By: #### L [id number] #### [facility] ([facility]) [address] [place] [address] Lymphocytes/100 WBC (Bld) 31.8 % Normal 20.0-45.0 [facility] Comment on above: Performed By: #### L [id number] #### [facility] [address] [place] [address] MCH (RBC) [Entitic mass] 29.3 pg Normal 27.0-33.0 [facility] Comment on above: Performed By: #### L [id number] #### [facility] [address] [place] [address] MCV (RBC) [Entitic vol] 90.0 fL Normal 82.0-98.0 [facility] Comment on above: Performed By: #### L [id number] #### [facility] ([facility]) [address] [place] [address] Monocytes (Bld) [#/Vol] 1.40 10*3/uL High 0.10-1.00 [facility] Comment on above: Performed By: #### L [id number] #### [facility] ([facility]) [address] [place] [address] Monocytes/100 WBC (Bld) 12.5 % High 5.0-12.0 [facility] Comment on above: Performed By: #### L [id number] #### [facility] ([facility]) [address] [place] [address] Neutrophils (Bld) [#/Vol] 5.43 10*3/uL Normal 1.60-7.60 [facility] Comment on above: Performed By: #### L [id number] #### [facility] ([facility]) [address] [place] [address] Neutrophils/100 WBC (Bld) 48.6 % Normal 40.0-72.0 [facility] Comment on above: Performed By: #### L [id number] #### [facility] ([facility]) [address] [place] [address] NRBC (PER 100 WBCS) BY AUTOMATED COUNT 0.0 % Normal 0 [facility] Comment on above: Performed By: #### L [id number] #### [facility] [address] [place] [address] PLATELETS (10*3/UL) IN BLOOD AUTOMATED COUNT 633 10*3/uL High 150-400 [facility] Comment on above: Performed By: #### L [id number] #### [facility] ([facility]) [address] [place] [address] RBC (Bld) [#/Vol] 3.00 10*6/uL Low 4.20-5.70 [facility] Comment on above: Performed By: #### L [id number] #### [facility] ([facility]) [address] [place] [address] WBC (Bld) [#/Vol] 11.18 10*3/uL High 4.00-10.60 [facility] Comment on above: Performed By: #### L [id number] #### [facility] ([facility] [address] [place] [address] MAGNESIUMon 09-14-2023 Magnesium [Mass/Vol] 2.2 mg/dL Normal 1.9-2.7 [facility] Comment on above: Performed By: #### L [id number] #### [facility] ([facility]) [address] [place] [address] PHOSPHORUSon 09-14-2023 Magnesium [Mass/Vol] 6.7 mg/dL High 2.5-5.0 [facility] Comment on above: Performed By: #### L [id number] #### [facility] ([facility]) [address] [place] [address] BASIC METABOLIC PANELon 08-24 Anion gap [Moles/Vol] 13 mmol/L Normal 7-20 [facility] Comment on above: Performed By: #### L [id number] #### [facility] ([facility]) [address] [place] [address] Calcium [Mass/Vol] 8.5 mg/dL Low 8.6-10.3 [facility] Comment on above: Performed By: #### L [id number] #### [facility] ([facility]) [address] [place] [address] Chloride [Moles/Vol] 102 mmol/L Normal 98-107 [facility] Comment on above: Performed By: #### L [id number] #### [facility] ([facility]) [address] [place] [address] CO2 [Moles/Vol] 23 mmol/L Normal 21-31 [facility] Comment on above: Performed By: #### L [id number] #### [facility] ([facility]) [address] [place] [address] Creatinine [Mass/Vol] 1.44 mg/dL High 0.70-1.30 [facility] Comment on above: Performed By: #### L [id number] #### [facility] ([facility]) [address] [place] [address] GLOMERULAR FILTRATION RATE ML/MIN/1.73 SQ M.PREDICTED 51.9 mL/min/1.73m*2 Low >60.0 [facility] Comment on above: Result Comment: [facility]???s estimated glomerular filtration rate (eGFR) [...] individuals. Performed By: #### L [id number] #### [facility] ([facility]) [address] [place] [address] Glucose [Mass/Vol] 61 mg/dL Low 70-100 [facility] Comment on above: Performed By: #### L [id number] #### [facility] ([facility]) [address] [place] [address] Potassium [Moles/Vol] 4.0 mmol/L Normal 3.5-5.1 [facility] Comment on above: Performed By: #### L [id number] #### [facility] ([facility]) [address] [place] [address] Sodium [Moles/Vol] 134 mmol/L Low 136-145 [facility] Comment on above: Performed By: #### L [id number] #### [facility] ([facility]) [address] [place] [address] Urea nitrogen [Mass/Vol] 76 mg/dL High 7-25 [facility] Comment on above: Performed By: #### L [id number] #### [facility] ([facility]) [address] [place] [address] UREA NITROGEN/CREATININE (MASS RATIO) IN SER/PLAS 52.8 Normal [facility] Comment on above: Performed By: #### L [id number] #### [facility] ([facility]) [address] [place] [address] CBCon 09-12-2023 Erythrocyte distribution width (RBC) [Ratio] 15.7 % High 11.5-15.0 [facility] Comment on above: Performed By: #### L [id number] #### [facility] ([facility]) [address] [place] [address] ERYTHROCYTE MEAN CORPUSCULAR HEMOGLOBIN CONCENTRATION (G/DL) BY AUTOMATED 33.0 g/dL Normal 32.0-35.0 [facility] Comment on above: Performed By: #### L [id number] #### [facility] ([facility]) [address] [place] [address] Hematocrit (Bld) [Volume fraction] 30.3 % Low 39.0-55.0 [facility] Comment on above: Performed By: #### L [id number] #### [facility] ([facility]) [address] [place] [address] Hemoglobin (Bld) [Mass/Vol] 10.0 g/dL Low 13.0-17.0 [facility] Comment on above: Performed By: #### L [id number] #### [facility] ([facility]) [address] [place] [address] MCH (RBC) [Entitic mass] 29.2 pg Normal 27.0-33.0 [facility] Comment on above: Performed By: #### L [id number] #### [facility] ([facility]) [address] [place] [address] MCV (RBC) [Entitic vol] 88.6 fL Normal 82.0-98.0 [facility] Comment on above: Performed By: #### L [id number] #### [facility] ([facility]) [address] [place] [address] PLATELETS (10*3/UL) IN BLOOD AUTOMATED COUNT 566 10*3/uL High 150-400 [facility] Comment on above: Performed By: #### L [id number] #### [facility] ([facility]) [address] [place] [address] RBC (Bld) [#/Vol] 3.42 10*6/uL Low 4.20-5.70 [facility] Comment on above: Performed By: #### L [id number] #### [facility] ([facility]) [address] [place] [address] WBC (Bld) [#/Vol] 12.24 10*3/uL High 4.00-10.60 [facility] Comment on above: Performed By: #### L [id number] #### [facility] ([facility]) [address] [place] [address] MAGNESIUMon 09-12-2023 Magnesium [Mass/Vol] 2.2 mg/dL Normal 1.9-2.7 [facility] Comment on above: Performed By: #### L [id number] #### [facility] ([facility]) [address] [place] [address] PHOSPHORUSon 09-12-2023 Magnesium [Mass/Vol] 6.4 mg/dL High 2.5-5.0 [facility] Comment on above: Performed By: #### L [id number] #### [facility] ([facility]) [address] [place] [address] BASIC METABOLIC PANELon 08-24 Anion gap [Moles/Vol] 11 mmol/L Normal 7-20 [facility] Comment on above: Performed By: #### L [id number] #### [facility] ([facility]) [address] [place] [address] Calcium [Mass/Vol] 8.1 mg/dL Low 8.6-10.3 [facility] Comment on above: Performed By: #### L [id number] #### [facility] ([facility]) [address] [place] [address] Chloride [Moles/Vol] 101 mmol/L Normal 98-107 [facility] Comment on above: Performed By: #### L [id number] #### [facility] ([facility]) [address] [place] [address] CO2 [Moles/Vol] 26 mmol/L Normal 21-31 [facility] Comment on above: Performed By: #### L [id number] #### [facility] ([facility]) [address] [place] [address] Creatinine [Mass/Vol] 1.22 mg/dL Normal 0.70-1.30 [facility] Comment on above: Performed By: #### L [id number] #### [facility] ([facility]) [address] [place] [address] GLOMERULAR FILTRATION RATE ML/MIN/1.73 SQ M.PREDICTED 63.4 mL/min/1.73m*2 Normal >60.0 [facility] Comment on above: Result Comment: [facility]???s estimated glomerular filtration rate (eGFR) [...] group of individuals. Performed By: #### L [id number] #### [facility] ([facility]) [address] [place] [address] Glucose [Mass/Vol] 56 mg/dL Low 70-100 [facility] Comment on above: Performed By: #### L [id number] #### [facility] ([facility]) [address] [place] [address] Potassium [Moles/Vol] 3.6 mmol/L Normal 3.5-5.1 [facility] Comment on above: Performed By: #### L [id number] #### [facility] ([facility]) [address] [place] [address] Sodium [Moles/Vol] 134 mmol/L Low 136-145 [facility] Comment on above: Performed By: #### L [id number] #### [facility] ([facility]) [address] [place] [address] Urea nitrogen [Mass/Vol] 83 mg/dL High 7-25 [facility] Comment on above: Performed By: #### L [id number] #### [facility] ([facility]) [address] [place] [address] UREA NITROGEN/CREATININE (MASS RATIO) IN SER/PLAS 68.0 Normal [facility] Comment on above: Performed By: #### L [id number] #### [facility] ([facility]) [address] [place] [address] CBCon 09-10-2023 Erythrocyte distribution width (RBC) [Ratio] 15.9 % High 11.5-15.0 [facility] Comment on above: Performed By: #### L [id number] #### [facility] ([facility]) [address] [place] [address] ERYTHROCYTE MEAN CORPUSCULAR HEMOGLOBIN CONCENTRATION (G/DL) BY AUTOMATED 34.2 g/dL Normal 32.0-35.0 [facility] Comment on above: Performed By: #### L [id number] #### [facility] ([facility]) [address] [place] [address] Hematocrit (Bld) [Volume fraction] 26.9 % Low 39.0-55.0 [facility] Comment on above: Performed By: #### L [id number] #### [facility] ([facility] [address] [place] [address] Hemoglobin (Bld) [Mass/Vol] 9.2 g/dL Low 13.0-17.0 [facility] Comment on above: Performed By: #### L [id number] #### [facility] ([facility] [address] [place] [address] MCH (RBC) [Entitic mass] 29.8 pg Normal 27.0-33.0 [facility] Comment on above: Performed By: #### L [id number] #### [facility] ([facility]) [address] [place] [address] MCV (RBC) [Entitic vol] 87.1 fL Normal 82.0-98.0 [facility] Comment on above: Performed By: #### L [id number] #### [facility] ([facility]) [address] [place] [address] PLATELETS (10*3/UL) IN BLOOD AUTOMATED COUNT 479 10*3/uL High 150-400 [facility] Comment on above: Performed By: #### L [id number] #### [facility] ([facility]) [address] [place] [address] RBC (Bld) [#/Vol] 3.09 10*6/uL Low 4.20-5.70 [facility] Comment on above: Performed By: #### L [id number] #### [facility] ([facility]) [address] [place] [address] WBC (Bld) [#/Vol] 12.21 10*3/uL High 4.00-10.60 [facility] Comment on above: Performed By: #### L [id number] #### [facility] ([facility]) [address] [place] [address] MAGNESIUMon 09-10-2023 Magnesium [Mass/Vol] 2.4 mg/dL Normal 1.9-2.7 [facility] Comment on above: Performed By: #### L [id number] #### [facility] ([facility]) [address] [place] [address] PHOSPHORUSon 09-10-2023 Magnesium [Mass/Vol] 5.5 mg/dL High 2.5-5.0 [facility] Comment on above: Performed By: #### L [id number] #### [facility] ([facility]) [address] [place] [address] CBC WITH AUTO DIFFERENTIALon 09-09-2023 Basophils (Bld) [#/Vol] 0.11 10*3/uL Normal 0.00-0.20 [facility] Comment on above: Performed By: #### L [id number] #### [facility] ([facility] [address] [place] [address] Basophils/100 WBC (Bld) 0.8 % Normal 0.0-1.0 [facility] Comment on above: Performed By: #### L [id number] #### [facility] ([facility]) [address] [place] [address] Eosinophils (Bld) [#/Vol] 0.41 10*3/uL Normal 0.00-0.50 [facility] Comment on above: Performed By: #### L [id number] #### [facility] ([facility]) [address] [place] [address] Eosinophils/100 WBC (Bld) 3.1 % Normal 0.0-6.0 [facility] Comment on above: Performed By: #### L [id number] #### [facility] ([facility]) [address] [place] [address] Erythrocyte distribution width (RBC) [Ratio] 15.6 % High 11.5-15.0 [facility] Comment on above: Performed By: #### L [id number] #### [facility] ([facility]) [address] [place] [address] ERYTHROCYTE MEAN CORPUSCULAR HEMOGLOBIN CONCENTRATION (G/DL) BY AUTOMATED 34.4 g/dL Normal 32.0-35.0 [facility] Comment on above: Performed By: #### L [id number] #### [facility] ([facility]) [address] [place] [address] Hematocrit (Bld) [Volume fraction] 27.3 % Low 39.0-55.0 [facility] Comment on above: Performed By: #### L [id number] #### [facility] ([facility]) [address] [address] Hemoglobin (Bld) [Mass/Vol] 9.4 g/dL Low 13.0-17.0 [facility] Comment on above: Performed By: #### L [id number] #### [facility] ([facility]) [address] [address] Immature granulocytes (Bld) [#/Vol] 0.06 10*3/uL Normal 0.00-0.20 [facility] Comment on above: Performed By: #### L [id number] #### [facility] ([facility]) [address] [place] [address] Immature granulocytes/100 WBC (Bld) 0.5 % Normal 0.0-1.0 [facility] Comment on above: Performed By: #### L [id number] #### [facility] ([facility]) [address] [address] Lymphocytes (Bld) [#/Vol] 2.09 10*3/uL Normal 1.20-4.00 [facility] Comment on above: Performed By: #### L [id number] #### [facility] ([facility]) [address] [place] [address] Lymphocytes/100 WBC (Bld) 15.9 % Low 20.0-45.0 [facility] Comment on above: Performed By: #### L [id number] #### [facility] [address] [place] [address] MCH (RBC) [Entitic mass] 29.7 pg Normal 27.0-33.0 [facility] Comment on above: Performed By: #### L [id number] #### [facility] ([facility]) [address] [place] [address] MCV (RBC) [Entitic vol] 86.1 fL Normal 82.0-98.0 [facility] Comment on above: Performed By: #### L [id number] #### [facility] ([facility]) [address] [place] [address] Monocytes (Bld) [#/Vol] 1.24 10*3/uL High 0.10-1.00 [facility] Comment on above: Performed By: #### L [id number] #### [facility] ([facility]) [address] [place] [address] Monocytes/100 WBC (Bld) 9.5 % Normal 5.0-12.0 [facility] Comment on above: Performed By: #### L [id number] #### [facility] ([facility]) [address] [place] [address] Neutrophils (Bld) [#/Vol] 9.20 10*3/uL High 1.60-7.60 [facility] Comment on above: Performed By: #### L [id number] #### [facility] ([facility]) [address] [place] [address] Neutrophils/100 WBC (Bld) 70.2 % Normal 40.0-72.0 [facility] Comment on above: Performed By: #### L [id number] #### [facility] ([facility]) [address] [place] [address] NRBC (PER 100 WBCS) BY AUTOMATED COUNT 0.0 % Normal 0 [facility] Comment on above: Performed By: #### L [id number] #### [facility] ([facility]) [address] [place] [address] PLATELETS (10*3/UL) IN BLOOD AUTOMATED COUNT 520 10*3/uL High 150-400 [facility] Comment on above: Performed By: #### L [id number] #### [facility] ([facility]) [address] [place] [address] RBC (Bld) [#/Vol] 3.17 10*6/uL Low 4.20-5.70 [facility] Comment on above: Performed By: #### L [id number] #### [facility] ([facility]) [address] [place] [address] WBC (Bld) [#/Vol] 13.11 10*3/uL High 4.00-10.60 [facility] Comment on above: Performed By: #### L [id number] #### [facility] ([facility]) [address] [place] [address] PROCALCITONIN TESTon 024 PROCALCITONIN IN BLOOD 0.14 ng/mL High 0.00-0.10 [facility] Comment on above: Result Comment: Susp ected [...] PCT<0.5ng/mL Performed By: #### L [id number] #### [facility] ([facility]) [address] [facility] [place] [address] Telephoneon 09-09-2023 Telephone [phone] Chelsea Diego JR 1950 M Date Provider Department Center 09/09/2023 ISELA POWELL [facility] Comprehensiv No family history on file Normal [facility] BASIC METABOLIC PANELon 04-1 Anion gap [Moles/Vol] 13 mmol/L Normal 7-20 [facility] Comment on above: Performed By: #### L [id number] #### [facility] ([facility]) [address] [place] [address] Calcium [Mass/Vol] 8.2 mg/dL Low 8.6-10.3 [facility] Comment on above: Performed By: #### L [id number] #### [facility] ([facility]) [address] [place] [address] Chloride [Moles/Vol] 98 mmol/L Normal 98-107 [facility] Comment on above: Performed By: #### L [id number] #### [facility] ([facility]) [address] [place] [address] CO2 [Moles/Vol] 25 mmol/L Normal 21-31 [facility] Comment on above: Performed By: #### L [id number] #### [facility] ([facility]) [address] [place] [address] Creatinine [Mass/Vol] 2.14 mg/dL High 0.70-1.30 [facility] Comment on above: Performed By: #### L [id number] #### [facility] ([facility]) [address] [place] [address] GLOMERULAR FILTRATION RATE ML/MIN/1.73 SQ M.PREDICTED 32.3 mL/min/1.73m*2 Low >60.0 [facility] Comment on above: Result Comment: [facility]???s estimated glomerular filtration rate (eGFR) [...] group of individuals. Performed By: #### L [id number] #### [facility] ([facility]) [address] [place] [address] Glucose [Mass/Vol] 92 mg/dL Normal 70-100 [facility] Comment on above: Performed By: #### L [id number] #### [facility] ([facility]) [address] [place] [address] Potassium [Moles/Vol] 3.3 mmol/L Low 3.5-5.1 [facility] Comment on above: Performed By: #### L [id number] #### [facility] ([facility]) [address] [place] [address] Sodium [Moles/Vol] 133 mmol/L Low 136-145 [facility] Comment on above: Performed By: #### L [id number] #### [facility] ([facility]) [address] [place] [address] Urea nitrogen [Mass/Vol] 89 mg/dL High 7-25 [facility] Comment on above: Performed By: #### L [id number] #### [facility] ([facility]) [address] [place] [address] UREA NITROGEN/CREATININE (MASS RATIO) IN SER/PLAS 41.6 Normal [facility] Comment on above: Performed By: #### L [id number] #### [facility] ([facility]) [address] [place] [address] CBCon 09-08-2023 Erythrocyte distribution width (RBC) [Ratio] 15.7 % High 11.5-15.0 [facility] Comment on above: Performed By: #### L [id number] #### [facility] ([facility]) [address] [place] [address] ERYTHROCYTE MEAN CORPUSCULAR HEMOGLOBIN CONCENTRATION (G/DL) BY AUTOMATED 34.0 g/dL Normal 32.0-35.0 [facility] Comment on above: Performed By: #### L [id number] #### [facility] ([facility]) [address] [place] [address] Hematocrit (Bld) [Volume fraction] 29.1 % Low 39.0-55.0 [facility] Comment on above: Performed By: #### L [id number] #### [facility] ([facility]) [address] [place] [address] Hemoglobin (Bld) [Mass/Vol] 9.9 g/dL Low 13.0-17.0 [facility] Comment on above: Performed By: #### L [id number] #### [facility] ([facility]) [address] [place] [address] MCH (RBC) [Entitic mass] 29.5 pg Normal 27.0-33.0 [facility] Comment on above: Performed By: #### L [id number] #### [facility] ([facility]) [address] [place] [address] MCV (RBC) [Entitic vol] 86.6 fL Normal 82.0-98.0 [facility] Comment on above: Performed By: #### L [id number] #### [facility] ([facility]) [address] [place] [address] PLATELETS (10*3/UL) IN BLOOD AUTOMATED COUNT 524 10*3/uL High 150-400 [facility] Comment on above: Performed By: #### L [id number] #### [facility] ([facility]) [address] [place] [address] RBC (Bld) [#/Vol] 3.36 10*6/uL Low 4.20-5.70 [facility] Comment on above: Performed By: #### L [id number] #### [facility] ([facility]) [address] [place] [address] WBC (Bld) [#/Vol] 13.88 10*3/uL High 4.00-10.60 [facility] Comment on above: Performed By: #### L [id number] #### [facility] [address] [place] [address] MAGNESIUMon 09-08-2023 Magnesium [Mass/Vol] 2.4 mg/dL Normal 1.9-2.7 [facility] Comment on above: Performed By: #### L [id number] #### [facility] ([facility]) [address] [place] [address] PHOSPHORUSon 09-08-2023 Magnesium [Mass/Vol] 6.4 mg/dL High 2.5-5.0 [facility] Comment on above: Performed By: #### L [id number] #### [facility] ([facility]) [address] [place] [address] BASIC METABOLIC PANELon 08-24 Anion gap [Moles/Vol] 12 mmol/L Normal 7-20 [facility] Comment on above: Performed By: #### L [id number] #### [facility] ([facility]) [address] [place] [address] Calcium [Mass/Vol] 8.1 mg/dL Low 8.6-10.3 [facility] Comment on above: Performed By: #### L [id number] #### [facility] ([facility]) [address] [place] [address] Chloride [Moles/Vol] 99 mmol/L Normal 98-107 [facility] Comment on above: Performed By: #### L [id number] #### [facility] ([facility]) [address] [place] [address] CO2 [Moles/Vol] 26 mmol/L Normal 21-31 [facility] Comment on above: Performed By: #### L [id number] #### [facility] [address] [place] [address] Creatinine [Mass/Vol] 3.13 mg/dL High 0.70-1.30 [facility] Comment on above: Performed By: #### L [id number] #### [facility]) [address] [place] [address] GLOMERULAR FILTRATION RATE ML/MIN/1.73 SQ M.PREDICTED 20.5 mL/min/1.73m*2 Low >60.0 [facility] Comment on above: Result Comment: [facility]???s estimated glomerular filtration rate (eGFR) [...] group of individuals. Performed By: #### L [id number] #### [facility] ([facility]) [address] [place] [address] Glucose [Mass/Vol] 138 mg/dL High 70-100 [facility] Comment on above: Performed By: #### L [id number] #### [facility] ([facility]) [address] [place] [address] Potassium [Moles/Vol] 3.1 mmol/L Low 3.5-5.1 [facility] Comment on above: Performed By: #### L [id number] #### [facility] ([facility]) [address] [place] [address] Sodium [Moles/Vol] 134 mmol/L Low 136-145 [facility] Comment on above: Performed By: #### L [id number] #### [facility] ([facility] [address] [place] [address] Urea nitrogen [Mass/Vol] 64 mg/dL High 7-25 [facility] Comment on above: Performed By: #### L [id number] #### [facility] [address] [place] [address] UREA NITROGEN/CREATININE (MASS RATIO) IN SER/PLAS 20.4 Normal [facility] Comment on above: Performed By: #### L [id number] #### [facility] ([facility]) [address] [place] [address] CBCon 09-05-2023 Erythrocyte distribution width (RBC) [Ratio] 15.9 % High 11.5-15.0 [facility] Comment on above: Performed By: #### L [id number] #### [facility] ([facility]) [address] [place] [address] ERYTHROCYTE MEAN CORPUSCULAR HEMOGLOBIN CONCENTRATION (G/DL) BY AUTOMATED 33.8 g/dL Normal 32.0-35.0 [facility] Comment on above: Performed By: #### L [id number] #### [facility] ([facility]) [address] [place] [address] Hematocrit (Bld) [Volume fraction] 29.9 % Low 39.0-55.0 [facility] Comment on above: Performed By: #### L [id number] #### [facility] ([facility]) [address] [place] [address] Hemoglobin (Bld) [Mass/Vol] 10.1 g/dL Low 13.0-17.0 [facility] Comment on above: Performed By: #### L [id number] #### [facility] ([facility]) [address] [place] [address] MCH (RBC) [Entitic mass] 29.6 pg Normal 27.0-33.0 [facility] Comment on above: Performed By: #### L [id number] #### [facility] ([facility]) [address] [place] [address] MCV (RBC) [Entitic vol] 87.7 fL Normal 82.0-98.0 [facility] Comment on above: Performed By: #### L [id number] #### [facility] ([facility]) [address] [place] [address] PLATELETS (10*3/UL) IN BLOOD AUTOMATED COUNT 511 10*3/uL High 150-400 [facility] Comment on above: Performed By: #### L [id number] #### [facility] [address] [place] [address] RBC (Bld) [#/Vol] 3.41 10*6/uL Low 4.20-5.70 [facility] Comment on above: Performed By: #### L [id number] #### [facility] ([facility]) [address] [place] [address] WBC (Bld) [#/Vol] 10.65 10*3/uL High 4.00-10.60 [facility] Comment on above: Performed By: #### L [id number] #### [facility] ([facility]) [address] [place] [address] MAGNESIUMon 09-05-2023 Magnesium [Mass/Vol] 2.4 mg/dL Normal 1.9-2.7 [facility] Comment on above: Performed By: #### L [id number] #### [facility] ([facility]) [address] [place] [address] PHOSPHORUSon 09-05-2023 Magnesium [Mass/Vol] 5.7 mg/dL High 2.5-5.0 [facility] Comment on above: Performed By: #### L [id number] #### [facility] [address] [place] [address] BASIC METABOLIC PANELon 08-24 Anion gap [Moles/Vol] 12 mmol/L Normal 7-20 [facility] Comment on above: Performed By: #### L [id number] #### [facility] ([facility] [address] [place] [address] Calcium [Mass/Vol] 8.1 mg/dL Low 8.6-10.3 [facility] Comment on above: Performed By: #### L [id number] #### [facility] ([facility]) [address] [place] [address] Chloride [Moles/Vol] 99 mmol/L Normal 98-107 [facility] Comment on above: Performed By: #### L [id number] #### [facility] ([facility]) [address] [place] [address] CO2 [Moles/Vol] 26 mmol/L Normal 21-31 [facility] Comment on above: Performed By: #### L [id number] #### [facility] ([facility]) [address] [place] [address] Creatinine [Mass/Vol] 3.38 mg/dL High 0.70-1.30 [facility] Comment on above: Performed By: #### L [id number] #### [facility] ([facility]) [address] [place] [address] GLOMERULAR FILTRATION RATE ML/MIN/1.73 SQ M.PREDICTED 18.7 mL/min/1.73m*2 Low >60.0 [facility] Comment on above: Result Comment: [facility]???s estimated glomerular filtration rate (eGFR) [...] group of individuals. Performed By: #### L [id number] #### [facility] ([facility]) [address] [place] [address] Glucose [Mass/Vol] 139 mg/dL High 70-100 [facility] Comment on above: Performed By: #### L [id number] #### [facility] ([facility]) [address] [place] [address] Potassium [Moles/Vol] 3.5 mmol/L Normal 3.5-5.1 [facility] Comment on above: Performed By: #### L [id number] #### [facility] ([facility]) [address] [place] [address] Sodium [Moles/Vol] 133 mmol/L Low 136-145 [facility] Comment on above: Performed By: #### L [id number] #### [facility] ([facility]) [address] [place] [address] Urea nitrogen [Mass/Vol] 64 mg/dL High 7-25 [facility] Comment on above: Performed By: #### L [id number] #### [facility] ([facility]) [address] [place] [address] UREA NITROGEN/CREATININE (MASS RATIO) IN SER/PLAS 18.9 Normal [facility] Comment on above: Performed By: #### L [id number] #### [facility] ([facility]) [address] [place] [address] CBCon 09-03-2023 Erythrocyte distribution width (RBC) [Ratio] 15.7 % High 11.5-15.0 [facility] Comment on above: Performed By: #### L [id number] #### [facility] [address] [place] [address] ERYTHROCYTE MEAN CORPUSCULAR HEMOGLOBIN CONCENTRATION (G/DL) BY AUTOMATED 33.2 g/dL Normal 32.0-35.0 [facility] Comment on above: Performed By: #### L [id number] #### [facility] ([facility]) [address] [place] [address] Hematocrit (Bld) [Volume fraction] 31.6 % Low 39.0-55.0 [facility] Comment on above: Performed By: #### L [id number] #### [facility] ([facility]) [address] [place] [address] Hemoglobin (Bld) [Mass/Vol] 10.5 g/dL Low 13.0-17.0 [facility] Comment on above: Performed By: #### L [id number] #### [facility] ([facility]) [address] [place] [address] MCH (RBC) [Entitic mass] 29.5 pg Normal 27.0-33.0 [facility] Comment on above: Performed By: #### L [id number] #### [facility] ([facility]) [address] [address] MCV (RBC) [Entitic vol] 88.8 fL Normal 82.0-98.0 [facility] Comment on above: Performed By: #### L [id number] #### [facility] ([facility]) [address] [place] [address] PLATELETS (10*3/UL) IN BLOOD AUTOMATED COUNT 520 10*3/uL High 150-400 [facility] Comment on above: Performed By: #### L [id number] #### [facility] ([facility]) [address] [place] [address] RBC (Bld) [#/Vol] 3.56 10*6/uL Low 4.20-5.70 [facility] Comment on above: Performed By: #### L [id number] #### [facility] ([facility]) [address] [place] [address] WBC (Bld) [#/Vol] 14.08 10*3/uL High 4.00-10.60 [facility] Comment on above: Performed By: #### L [id number] #### [facility] ([facility]) [address] [place] [address] MAGNESIUMon 09-03-2023 Magnesium [Mass/Vol] 2.2 mg/dL Normal 1.9-2.7 [facility] Comment on above: Performed By: #### L [id number] #### [facility] ([facility]) [address] [place] [address] PHOSPHORUSon 09-03-2023 Magnesium [Mass/Vol] 4.3 mg/dL Normal 2.5-5.0 [facility] Comment on above: Performed By: #### L [id number] #### [facility] ([facility] [address] [place] [address] BASIC METABOLIC PANELon 04-0 Anion gap [Moles/Vol] 17 mmol/L Normal 7-20 [facility] Comment on above: Performed By: #### L [id number] #### [facility] ([facility] [address] [place] [address] Calcium [Mass/Vol] 8.3 mg/dL Low 8.6-10.3 [facility] Comment on above: Performed By: #### L [id number] #### [facility] ([facility]) [address] [place] [address] Chloride [Moles/Vol] 102 mmol/L Normal 98-107 [facility] Comment on above: Performed By: #### L [id number] #### [facility] ([facility]) [address] [place] [address] CO2 [Moles/Vol] 25 mmol/L Normal 21-31 [facility] Comment on above: Performed By: #### L [id number] #### [facility] ([facility]) [address] [place] [address] Creatinine [Mass/Vol] 4.80 mg/dL High 0.70-1.30 [facility] Comment on above: Performed By: #### L [id number] #### [facility] ([facility]) [address] [place] [address] GLOMERULAR FILTRATION RATE ML/MIN/1.73 SQ M.PREDICTED 12.2 mL/min/1.73m*2 Low >60.0 [facility] Comment on above: Result Comment: [facility]???s estimated glomerular filtration rate (eGFR) [...] group of individuals. Performed By: #### L [id number] #### [facility] ([facility]) [address] [place] [address] Glucose [Mass/Vol] 157 mg/dL High 70-100 [facility] Comment on above: Performed By: #### L [id number] #### [facility] ([facility]) [address] [place] [address] Potassium [Moles/Vol] 3.6 mmol/L Normal 3.5-5.1 [facility] Comment on above: Performed By: #### L [id number] #### [facility] ([facility]) [address] [place] [address] Sodium [Moles/Vol] 140 mmol/L Normal 136-145 [facility] Comment on above: Performed By: #### L [id number] #### [facility] ([facility]) [address] [place] [address] Urea nitrogen [Mass/Vol] 106 mg/dL High 7-25 [facility] Comment on above: Performed By: #### L [id number] #### [facility] ([facility]) [address] [place] [address] UREA NITROGEN/CREATININE (MASS RATIO) IN SER/PLAS 22.1 Normal [facility] Comment on above: Performed By: #### L [id number] #### [facility] ([facility]) [address] [place] [address] CBCon 09-01-2023 Erythrocyte distribution width (RBC) [Ratio] 15.9 % High 11.5-15.0 [facility] Comment on above: Performed By: #### L [id number] #### [facility] ([facility]) [address] [place] [address] ERYTHROCYTE MEAN CORPUSCULAR HEMOGLOBIN CONCENTRATION (G/DL) BY AUTOMATED 32.8 g/dL Normal 32.0-35.0 [facility] Comment on above: Performed By: #### L [id number] #### [facility] ([facility]) [address] [place] [address] Hematocrit (Bld) [Volume fraction] 28.7 % Low 39.0-55.0 [facility] Comment on above: Performed By: #### L [id number] #### [facility] ([facility]) [address] [place] [address] Hemoglobin (Bld) [Mass/Vol] 9.4 g/dL Low 13.0-17.0 [facility] Comment on above: Performed By: #### L [id number] #### [facility] ([facility]) [address] [place] [address] MCH (RBC) [Entitic mass] 29.1 pg Normal 27.0-33.0 [facility] Comment on above: Performed By: #### L [id number] #### [facility] ([facility]) [address] [place] [address] MCV (RBC) [Entitic vol] 88.9 fL Normal 82.0-98.0 [facility] Comment on above: Performed By: #### L [id number] #### [facility] ([facility]) [address] [place] [address] PLATELETS (10*3/UL) IN BLOOD AUTOMATED COUNT 590 10*3/uL High 150-400 [facility] Comment on above: Performed By: #### L [id number] #### [facility] ([facility]) [address] [place] [address] RBC (Bld) [#/Vol] 3.23 10*6/uL Low 4.20-5.70 [facility] Comment on above: Performed By: #### L [id number] #### [facility] ([facility]) [address] [place] [address] WBC (Bld) [#/Vol] 12.12 10*3/uL High 4.00-10.60 [facility] Comment on above: Performed By: #### L [id number] #### [facility] ([facility]) [address] [place] [address] MAGNESIUMon 09-01-2023 Magnesium [Mass/Vol] 2.7 mg/dL Normal 1.9-2.7 [facility] Comment on above: Performed By: #### L [id number] #### [facility] ([facility]) [address] [place] [address] PHOSPHORUSon 09-01-2023 Magnesium [Mass/Vol] 2.5 mg/dL Normal 2.5-5.0 [facility] Comment on above: Performed By: #### L [id number] #### [facility] ([facility]) [address] [place] [address] PROCALCITONIN TESTon 024 PROCALCITONIN IN BLOOD 7.44 ng/mL Critically high 0.00-0.1 0 [facility] Comment on above: Result Comment: [...] and initial PCT<0.5ng/mL Performed By: #### L [id number] #### [facility] ([facility]) [address] [place] [address] VANCOMYCIN, RANDOMon 08-31- 024 VANCOMYCIN (UG/ML) IN SER/PLAS 14.1 ug/mL Low 20.0-40.0 [facility] Comment on above: Performed By: #### L [id number] #### [facility] ([facility]) [address] [place] [address] BASIC METABOLIC PANELon Anion gap [Moles/Vol] 13 mmol/L Normal 7-20 [facility] Comment on above: Performed By: #### L [id number] #### [facility] ([facility]) [address] [place] [address] Calcium [Mass/Vol] 8.3 mg/dL Low 8.6-10.3 [facility] Comment on above: Performed By: #### L [id number] #### [facility] ([facility]) [address] [place] [address] Chloride [Moles/Vol] 100 mmol/L Normal 98-107 [facility] Comment on above: Performed By: #### L [id number] #### [facility] ([facility]) [address] [place] [address] CO2 [Moles/Vol] 28 mmol/L Normal 21-31 [facility] Comment on above: Performed By: #### L [id number] #### [facility] ([facility]) [address] [place] [address] Creatinine [Mass/Vol] 4.88 mg/dL High 0.70-1.30 [facility] Comment on above: Performed By: #### L [id number] #### [facility] ([facility]) [address] [place] [address] GLOMERULAR FILTRATION RATE ML/MIN/1.73 SQ M.PREDICTED 12.0 mL/min/1.73m*2 Low >60.0 [facility] Comment on above: Result Comment: [facility]???s estimated glomerular filtration rate (eGFR) [...] group of individuals. Performed By: #### L [id number] #### [facility] ([facility]) [address] [place] [address] Glucose [Mass/Vol] 197 mg/dL High 70-100 [facility] Comment on above: Performed By: #### L [id number] #### [facility] ([facility]) [address] [place] [address] Potassium [Moles/Vol] 3.7 mmol/L Normal 3.5-5.1 [facility] Comment on above: Performed By: #### L [id number] #### [facility] ([facility]) [address] [place] [address] Sodium [Moles/Vol] 137 mmol/L Normal 136-145 [facility] Comment on above: Performed By: #### L [id number] #### [facility] ([facility]) [address] [place] [address] Urea nitrogen [Mass/Vol] 84 mg/dL High 7-25 [facility] Comment on above: Performed By: #### L [id number] #### [facility] ([facility]) [address] [place] [address] UREA NITROGEN/CREATININE (MASS RATIO) IN SER/PLAS 17.2 Normal [facility] Comment on above: Performed By: #### L [id number] #### [facility] ([facility]) [address] [place] [address] CBCon 08-31-2023 Erythrocyte distribution width (RBC) [Ratio] 16.2 % High 11.5-15.0 [facility] Comment on above: Performed By: #### L [id number] #### [facility] [address] [place] [address] ERYTHROCYTE MEAN CORPUSCULAR HEMOGLOBIN CONCENTRATION (G/DL) BY AUTOMATED 32.1 g/dL Normal 32.0-35.0 [facility] Comment on above: Performed By: #### L [id number] #### [facility] ([facility]) [address] [place] [address] Hematocrit (Bld) [Volume fraction] 29.0 % Low 39.0-55.0 [facility] Comment on above: Performed By: #### L [id number] #### [facility] ([facility]) [address] [place] [address] Hemoglobin (Bld) [Mass/Vol] 9.3 g/dL Low 13.0-17.0 [facility] Comment on above: Performed By: #### L [id number] #### [facility] ([facility]) [address] [place] [address] MCH (RBC) [Entitic mass] 28.8 pg Normal 27.0-33.0 [facility] Comment on above: Performed By: #### L [id number] #### [facility] ([facility]) [address] [place] [address] MCV (RBC) [Entitic vol] 89.8 fL Normal 82.0-98.0 [facility] Comment on above: Performed By: #### L [id number] #### [facility] [address] [place] [address] PLATELETS (10*3/UL) IN BLOOD AUTOMATED COUNT 671 10*3/uL High 150-400 [facility] Comment on above: Performed By: #### L [id number] #### [facility] [address] [place] [address] RBC (Bld) [#/Vol] 3.23 10*6/uL Low 4.20-5.70 [facility] Comment on above: Performed By: #### L [id number] #### [facility] [address] [place] [address] WBC (Bld) [#/Vol] 11.34 10*3/uL High 4.00-10.60 [facility] Comment on above: Performed By: #### L [id number] #### [facility] ([facility]) [address] [place] [address] CBC WITH AUTO DIFFERENTIALon 08-30-2023 Erythrocyte distribution width (RBC) [Ratio] 16.3 % High 11.5-15.0 [facility] Comment on above: Performed By: #### L [id number] #### [facility] ([facility]) [address] [place] [address] ERYTHROCYTE MEAN CORPUSCULAR HEMOGLOBIN CONCENTRATION (G/DL) BY AUTOMATED 31.7 g/dL Low 32.0-35.0 [facility] Comment on above: Performed By: #### L [id number] #### [facility] ([facility]) [address] [place] [address] Hematocrit (Bld) [Volume fraction] 30.9 % Low 39.0-55.0 [facility] Comment on above: Performed By: #### L [id number] #### [facility] [address] [place] [address] Hemoglobin (Bld) [Mass/Vol] 9.8 g/dL Low 13.0-17.0 [facility] Comment on above: Performed By: #### L [id number] #### [facility] [address] [place] [address] MCH (RBC) [Entitic mass] 28.9 pg Normal 27.0-33.0 [facility] Comment on above: Performed By: #### L [id number] #### [facility] [address] [place] [address] MCV (RBC) [Entitic vol] 91.2 fL Normal 82.0-98.0 [facility] Comment on above: Performed By: #### L [id number] #### [facility] ([facility]) [address] [place] [address] NRBC (PER 100 WBCS) BY AUTOMATED COUNT 0.0 % Normal 0 [facility] Comment on above: Performed By: #### L [id number] #### [facility] ([facility]) [address] [place] [address] PLATELETS (10*3/UL) IN BLOOD AUTOMATED COUNT 748 10*3/uL High 150-400 [facility] Comment on above: Performed By: #### L [id number] #### [facility] ([facility]) [address] [place] [address] RBC (Bld) [#/Vol] 3.39 10*6/uL Low 4.20-5.70 [facility] Comment on above: Performed By: #### L [id number] #### [facility] ([facility]) [address] [place] [address] WBC (Bld) [#/Vol] 24.53 10*3/uL High 4.00-10.60 [facility] Comment on above: Performed By: #### L [id number] #### [facility] ([facility]) [address] [place] [address] MANUAL DIFFERENTIALon 2023 BASOPHILS (10*3/UL) IN BLOOD BY CALCULATION 0.17 10*3/uL Normal 0.00-0.20 [facility] Comment on above: Performed By: #### L [id number] #### [facility] ([facility]) [address] [place] [address] BASOPHILS/100 LEUKOCYTES IN BLOOD BY AUTOMATED COUNT 0.7 % Normal 0.0-1.0 [facility] Comment on above: Performed By: #### L [id number] #### [facility] ([facility]) [address] [place] [address] EOSINOPHILS (10*3/UL) IN BLOOD BY CALCULATION 0.54 10*3/uL High 0.00-0.50 [facility] Comment on above: Performed By: #### L [id number] #### [facility] ([facility]) [address] [place] [address] EOSINOPHILS/100 LEUKOCYTES IN BLOOD BY AUTOMATED COUNT 2.2 % Normal 0.0-6.0 [facility] Comment on above: Performed By: #### L [id number] #### [facility] ([facility]) [address] [place] [address] IMMATURE GRANULOCYTES (10*3/UL) IN BLOOD BY CALCULATION 0.17 10*3/uL Normal 0.00-0.20 [facility] Comment on above: Performed By: #### L [id number] #### [facility] ([facility]) [address] [place] [address] IMMATURE GRANULOCYTES/100 LEUKOCYTES IN BLOOD BY AUTOMATED COUNT 0.7 % Normal 0.0-1.0 [facility] Comment on above: Performed By: #### L [id number] #### [facility] ([facility]) [address] [place] [address] LYMPHOCYTES (10*3/UL) IN BLOOD BY CALCULATION 1.82 10*3/uL Normal 1.20-4.00 [facility] Comment on above: Performed By: #### L [id number] #### [facility] ([facility]) [address] [place] [address] LYMPHOCYTES/100 LEUKOCYTES IN BLOOD BY AUTOMATED COUNT 7.4 % Low 20.0-45.0 [facility] Comment on above: Performed By: #### L [id number] #### [facility] ([facility]) [address] [place] [address] MONOCYTES (10*3/UL) IN BLOOD BY CALCUATION 1.84 10*3/uL High 0.10-1.00 [facility] Comment on above: Performed By: #### L [id number] #### [facility] ([facility]) [address] [place] [address] MONOCYTES/100 LEUKOCYTES IN BLOOD BY AUTOMATED COUNT 7.5 % Normal 5.0-12.0 [facility] Comment on above: Performed By: #### L [id number] #### [facility] ([facility]) [address] [place] [address] NEUTROPHILS (10*3/UL) IN BLOOD BY CALCULATION 20.0 10*3/uL High 1.6-7.6 [facility] Comment on above: Performed By: #### L [id number] #### [facility] ([facility]) [address] [place] [address] NEUTROPHILS/100 LEUKOCYTES IN BLOOD BY AUTOMATED COUNT 81.5 % High 40.0-72.0 [facility] Comment on above: Performed By: #### L [id number] #### [facility] [address] [place] [address] PROCALCITONIN TESTon 024 PROCALCITONIN IN BLOOD 23.57 ng/mL Critically high 0.00-0. 10 [facility] Comment on above: Result Comment: [...] PCT<0.5ng/mL Performed By: #### L [id number] #### [facility] ([facility]) [address] [place] [address] BASIC METABOLIC PANELon 04-0 Anion gap [Moles/Vol] 16 mmol/L Normal 7-20 [facility] Comment on above: Performed By: #### L [id number] #### [facility] [address] [place] [address] Calcium [Mass/Vol] 8.7 mg/dL Normal 8.6-10.3 [facility] Comment on above: Performed By: #### L [id number] #### [facility] ([facility]) [address] [place] [address] Chloride [Moles/Vol] 101 mmol/L Normal 98-107 [facility] Comment on above: Performed By: #### L [id number] #### [facility] ([facility]) [address] [place] [address] CO2 [Moles/Vol] 26 mmol/L Normal 21-31 [facility] Comment on above: Performed By: #### L [id number] #### [facility] ([facility] [address] [place] [address] Creatinine [Mass/Vol] 4.77 mg/dL High 0.70-1.30 [facility] Comment on above: Performed By: #### L [id number] #### [facility] ([facility] [address] [place] [address] GLOMERULAR FILTRATION RATE ML/MIN/1.73 SQ M.PREDICTED 12.3 mL/min/1.73m*2 Low >60.0 [facility] Comment on above: Result Comment: [facility]???s estimated glomerular filtration rate (eGFR) [...] individuals. Performed By: #### L [id number] #### [facility] ([facility]) [address] [place] [address] Glucose [Mass/Vol] 131 mg/dL High 70-100 [facility] Comment on above: Performed By: #### L [id number] #### [facility] ([facility]) [address] [place] [address] Potassium [Moles/Vol] 3.6 mmol/L Normal 3.5-5.1 [facility] Comment on above: Performed By: #### L [id number] #### [facility] ([facility]) [address] [place] [address] Sodium [Moles/Vol] 139 mmol/L Normal 136-145 [facility] Comment on above: Performed By: #### L [id number] #### [facility] ([facility]) [address] [place] [address] Urea nitrogen [Mass/Vol] 59 mg/dL High 7-25 [facility] Comment on above: Performed By: #### L [id number] #### [facility] ([facility]) [address] [place] [address] UREA NITROGEN/CREATININE (MASS RATIO) IN SER/PLAS 12.4 Normal [facility] Comment on above: Performed By: #### L [id number] #### [facility] ([facility]) [address] [place] [address] CBCon 08-29-2023 Erythrocyte distribution width (RBC) [Ratio] 16.3 % High 11.5-15.0 [facility] Comment on above: Performed By: #### L [id number] #### [facility] ([facility]) [address] [address] ERYTHROCYTE MEAN CORPUSCULAR HEMOGLOBIN CONCENTRATION (G/DL) BY AUTOMATED 32.5 g/dL Normal 32.0-35.0 [facility] Comment on above: Performed By: #### L [id number] #### [facility] ([facility]) [address] [address] Hematocrit (Bld) [Volume fraction] 28.9 % Low 39.0-55.0 [facility] Comment on above: Performed By: #### L [id number] #### [facility] ([facility]) [address] [place] [address] Hemoglobin (Bld) [Mass/Vol] 9.4 g/dL Low 13.0-17.0 [facility] Comment on above: Performed By: #### L [id number] #### [facility] ([facility]) [address] [place] [address] MCH (RBC) [Entitic mass] 28.9 pg Normal 27.0-33.0 [facility] Comment on above: Performed By: #### L [id number] #### [facility] ([facility]) [address] [place] [address] MCV (RBC) [Entitic vol] 88.9 fL Normal 82.0-98.0 [facility] Comment on above: Performed By: #### L [id number] #### [facility] ([facility]) [address] [place] [address] PLATELETS (10*3/UL) IN BLOOD AUTOMATED COUNT 742 10*3/uL High 150-400 [facility] Comment on above: Performed By: #### L [id number] #### [facility] ([facility]) [address] [place] [address] RBC (Bld) [#/Vol] 3.25 10*6/uL Low 4.20-5.70 [facility] Comment on above: Performed By: #### L [id number] #### [facility] [address] [place] [address] WBC (Bld) [#/Vol] 34.28 10*3/uL High 4.00-10.60 [facility] Comment on above: Performed By: #### L [id number] #### [facility] ([facility]) [address] [place] [address] MAGNESIUMon 08-29-2023 Magnesium [Mass/Vol] 2.2 mg/dL Normal 1.9-2.7 [facility] Comment on above: Performed By: #### L [id number] #### [facility] ([facility]) [address] [place] [address] PHOSPHORUSon 08-29-2023 Magnesium [Mass/Vol] 2.6 mg/dL Normal 2.5-5.0 [facility] Comment on above: Performed By: #### L [id number] #### [facility] ([facility]) [address] [place] [address] URINALYSISon 08-29-2023 BILIRUBIN, TOTAL PRESENCE IN URINE Negative Normal Negative [facility] Comment on above: Performed By: #### L [id number] #### [facility] ([facility]) [address] [place] [address] Clarity (U) Turbid Abnormal Clear [facility] Comment on above: Performed By: #### L [id number] #### [facility] ([facility]) [address] [place] [address] Color (U) Red Abnormal Yellow [facility] Comment on above: Performed By: #### L [id number] #### [facility] ([facility]) [address] [place] [address] Glucose (U) [Mass/Vol] Negative Normal Negative [facility] Comment on above: Performed By: #### L [id number] #### [facility] [address] [place] [address] HEMOGLOBIN PRESENCE IN URINE Large Abnormal Negative [facility] Comment on above: Performed By: #### L [id number] #### [facility] ([facility]) [address] [place] [address] Ketones Ql (U) Trace Abnormal Negative [facility] Comment on above: Performed By: #### L [id number] #### [facility] ([facility]) [address] [place] [address] LEUKOCYTE ESTERASE PRESENCE IN URINE BY TEST STRIP Moderate Abnormal Negative [facility] Comment on above: Performed By: #### L [id number] #### [facility] ([facility]) [address] [place] [address] NITRITE PRESENCE IN URINE Negative Normal Negative [facility] Comment on above: Performed By: #### L [id number] #### [facility] ([facility]) [address] [facility] [place] [address] pH (U) 5.0 [pH] Normal 5.0-8.0 [facility] Comment on above: Performed By: #### L [id number] #### [facility] ([facility]) [address] [place] [address] Protein (U) [Mass/Vol] mg/dL Abnormal Negative [facility] Comment on above: Performed By: #### L [id number] #### [facility] ([facility]) [address] [place] [address] Specific gravity (U) [Rel density] 1.026 High 1.015-1.020 [facility] Comment on above: Performed By: #### L [id number] #### [facility] ([facility]) [address] [place] [address] UROBILINOGEN (EU/DL) IN URINE 2.0 EU/dL Abnormal Negative [facility] Comment on above: Performed By: #### L [id number] #### [facility] ([facility]) [address] [place] [address] URINALYSIS MICROSCOPICon CASTS IN URINE Normal [facility] Comment on above: Performed By: #### L [id number] #### [facility] ([facility]) [address] [place] [address] CRYSTALS IN URINE Normal [facility] Comment on above: Performed By: #### L [id number] #### [facility] ([facility]) [address] [place] [address] MUCUS (#/HPF) IN URINE SEDIMENT Many Abnormal None Seen, Occasional, Few [facility] Comment on above: Performed By: #### L [id number] #### [facility] ([facility]) [address] [place] [address] RBC (#/HPF) IN URINE SEDIMENT 21-50 Abnormal None Seen [facility] Comment on above: Performed By: #### L [id number] #### [facility] ([facility]) [address] [place] [address] SQUAMOUS EPITHELIAL CELLS (#/HPF) IN URINE SEDIMENT None Seen Normal None Seen, Occasional [facility] Comment on above: Performed By: #### L [id number] #### [facility] ([facility]) [address] [place] [address] WBC (LEUKOCYTE) (#/HPF) IN URINE SEDIMENT 21-50 Abnormal None Seen [facility] Comment on above: Performed By: #### L [id number] #### [facility] ([facility]) [address] [place] [address] URINE CULTURE, ROUTINEon Bacteria identified Cx Nom (U) KLEBSIELLA PNEUMONIAE Abnormal [facility] Comment on above: Result Comment: >100 ,000 CFU/Ml Klebsiella pneumoniae Susceptibility to Follow Performed By: #### L [id number] #### [facility] ([facility]) [address] [place] [address] VANCOMYCIN, TROUGHon 024 VANCOMYCIN (UG/ML) IN SER/PLAS - TROUGH 8.8 ug/mL Normal 5.0-20.0 [facility] Comment on above: Performed By: #### L [id number] #### [facility] ([facility]) [address] [place] [address] AMMONIAon 08-28-2023 AMMONIA (UMOL/L) IN PLASMA 23 umol/L Normal 18-72 [facility] Comment on above: Performed By: #### L [id number] #### [facility] [address] [place] [address] BLOOD CULTUREon 08-28-2023 Bacteria identified Cx Nom (Bld) No growth at 5 days Normal [facility] Comment on above: Performed By: #### L [id number] #### [facility] [address] [address] Bacteria identified Cx Nom (Bld) No growth at 5 days Normal [facility] Comment on above: Performed By: #### L [id number] #### [facility] [address] [place] [address] CBCon 08-28-2023 Erythrocyte distribution width (RBC) [Ratio] 15.9 % High 11.5-15.0 [facility] Comment on above: Performed By: #### L [id number] #### [facility] ([facility]) [address] [place] [address] ERYTHROCYTE MEAN CORPUSCULAR HEMOGLOBIN CONCENTRATION (G/DL) BY AUTOMATED 33.4 g/dL Normal 32.0-35.0 [facility] Comment on above: Performed By: #### L [id number] #### [facility] ([facility]) [address] [place] [address] Hematocrit (Bld) [Volume fraction] 30.2 % Low 39.0-55.0 [facility] Comment on above: Performed By: #### L [id number] #### [facility] [address] [place] [address] Hemoglobin (Bld) [Mass/Vol] 10.1 g/dL Low 13.0-17.0 [facility] Comment on above: Performed By: #### L [id number] #### [facility] ([facility]) [address] [place] [address] MCH (RBC) [Entitic mass] 29.8 pg Normal 27.0-33.0 [facility] Comment on above: Performed By: #### L [id number] #### [facility] ([facility]) [address] [place] [address] MCV (RBC) [Entitic vol] 89.1 fL Normal 82.0-98.0 [facility] Comment on above: Performed By: #### L [id number] #### [facility] ([facility]) [address] [place] [address] PLATELETS (10*3/UL) IN BLOOD AUTOMATED COUNT 754 10*3/uL High 150-400 [facility] Comment on above: Performed By: #### L [id number] #### [facility] ([facility]) [address] [place] [address] RBC (Bld) [#/Vol] 3.39 10*6/uL Low 4.20-5.70 [facility] Comment on above: Performed By: #### L [id number] #### [facility] ([facility]) [address] [place] [address] WBC (Bld) [#/Vol] 33.80 10*3/uL High 4.00-10.60 [facility] Comment on above: Performed By: #### L [id number] #### [facility] ([facility]) [address] [place] [address] COMPREHENSIVE METABOLIC PANE Neil 08-28-2023 Albumin [Mass/Vol] 2.7 g/dL Low 3.5-5.7 [facility] Comment on above: Performed By: #### L [id number] #### [facility] ([facility]) [address] [place] [address] ALP [Catalytic activity/Vol] 91 U/L Normal 34-104 [facility] Comment on above: Performed By: #### L [id number] #### [facility] ([facility]) [address] [place] [address] ALT [Catalytic activity/Vol] 9 U/L Normal 7-52 [facility] Comment on above: Performed By: #### L [id number] #### [facility] [address] [place] [address] Anion gap [Moles/Vol] 12 mmol/L Normal 7-20 [facility] Comment on above: Performed By: #### L [id number] #### [facility] ([facility]) [address] [place] [address] AST [Catalytic activity/Vol] 18 U/L Normal 13-39 [facility] Comment on above: Performed By: #### L [id number] #### [facility] [address] [place] [address] Bilirubin [Mass/Vol] 0.6 mg/dL Normal 0.3-1.0 [facility] Comment on above: Performed By: #### L [id number] #### [facility] [address] [place] [address] Calcium [Mass/Vol] 8.6 mg/dL Normal 8.6-10.3 [facility] Comment on above: Performed By: #### L [id number] #### [facility] [address] [place] [address] Chloride [Moles/Vol] 99 mmol/L Normal 98-107 [facility] Comment on above: Performed By: #### L [id number] #### [facility] ([facility]) [address] [place] [address] CO2 [Moles/Vol] 30 mmol/L Normal 21-31 [facility] Comment on above: Performed By: #### L [id number] #### [facility] ([facility]) [address] [place] [address] Creatinine [Mass/Vol] 3.75 mg/dL High 0.70-1.30 [facility] Comment on above: Performed By: #### L [id number] #### [facility] ([facility]) [address] [place] [address] GLOMERULAR FILTRATION RATE ML/MIN/1.73 SQ M.PREDICTED 16.5 mL/min/1.73m*2 Low >60.0 [facility] Comment on above: Result Comment: [facility]???s estimated glomerular filtration rate (eGFR) [...] individuals. Performed By: #### L [id number] #### [facility] ([facility]) [address] [place] [address] Glucose [Mass/Vol] 122 mg/dL High 70-100 [facility] Comment on above: Performed By: #### L [id number] #### [facility] ([facility]) [address] [place] [address] Potassium [Moles/Vol] 3.6 mmol/L Normal 3.5-5.1 [facility] Comment on above: Performed By: #### L [id number] #### [facility] ([facility]) [address] [place] [address] Protein [Mass/Vol] 7.1 g/dL Normal 6.0-8.3 [facility] Comment on above: Performed By: #### L [id number] #### [facility] [address] [place] [address] Sodium [Moles/Vol] 137 mmol/L Normal 136-145 [facility] Comment on above: Performed By: #### L [id number] #### [facility] ([facility]) [address] [place] [address] Urea nitrogen [Mass/Vol] 41 mg/dL High 7-25 [facility] Comment on above: Performed By: #### L [id number] #### [facility] ([facility]) [address] [place] [address] UREA NITROGEN/CREATININE (MASS RATIO) IN SER/PLAS 10.9 Normal [facility] Comment on above: Performed By: #### L [id number] #### [facility] ([facility]) [address] [place] [address] PROCALCITONIN TESTon 024 PROCALCITONIN IN BLOOD 16.65 ng/mL Critically high 0.00-0. 10 [facility] Comment on above: Result Comment: [...] PCT<0.5ng/mL Performed By: #### L [id number] #### [facility] ([facility]) [address] [place] [address] SPUTUM CULTUREon 08-28-2023 GRAM STAIN RESULT Normal [facility] Comment on above: Order Comment: Moder ate Growth Colonies Consistent with Upper Respiratory Suyapa Result Comment: 10-2 5 Squamous Epithelial Cells Per Low Power Field >25 Polys Per Low Power Field Many Gram positive cocci in chains Moderate Gram negative bacilli Rare Yeast Performed By: #### L [id number] #### [facility] ([facility]) [address] [place] [address] TSH3 REFLEX TO FT4on 024 THYROTROPIN (MIU/L) IN SER/PLAS BY DETECTION LIMIT <= 0.05 MIU/L 5.27 mIU/L Normal 0.34-5.60 [facility] Comment on above: Performed By: #### L [id number] #### [facility] ([facility]) [address] [place] [address] BASIC METABOLIC PANELon Anion gap [Moles/Vol] 10 mmol/L Normal 7-20 [facility] Comment on above: Performed By: #### L [id number] #### [facility] ([facility]) [address] [place] [address] Calcium [Mass/Vol] 8.1 mg/dL Low 8.6-10.3 [facility] Comment on above: Performed By: #### L [id number] #### [facility] ([facility]) [address] [place] [address] Chloride [Moles/Vol] 95 mmol/L Low 98-107 [facility] Comment on above: Performed By: #### L [id number] #### [facility] ([facility]) [address] [place] [address] CO2 [Moles/Vol] 30 mmol/L Normal 21-31 [facility] Comment on above: Performed By: #### L [id number] #### [facility] ([facility]) [address] [place] [address] Creatinine [Mass/Vol] 3.38 mg/dL High 0.70-1.30 [facility] Comment on above: Performed By: #### L [id number] #### [facility] ([facility]) [address] [place] [address] GLOMERULAR FILTRATION RATE ML/MIN/1.73 SQ M.PREDICTED 18.7 mL/min/1.73m*2 Low >60.0 [facility] Comment on above: Result Comment: [facility]???s estimated glomerular filtration rate (eGFR) [...] individuals. Performed By: #### L [id number] #### [facility] ([facility]) [address] [place] [address] Glucose [Mass/Vol] 105 mg/dL High 70-100 [facility] Comment on above: Performed By: #### L [id number] #### [facility] ([facility]) [address] [place] [address] Potassium [Moles/Vol] 3.3 mmol/L Low 3.5-5.1 [facility] Comment on above: Performed By: #### L [id number] #### [facility] ([facility]) [address] [place] [address] Sodium [Moles/Vol] 132 mmol/L Low 136-145 [facility] Comment on above: Performed By: #### L [id number] #### [facility] ([facility]) [address] [place] [address] Urea nitrogen [Mass/Vol] 57 mg/dL High 7-25 [facility] Comment on above: Performed By: #### L [id number] #### [facility] ([facility]) [address] [place] [address] UREA NITROGEN/CREATININE (MASS RATIO) IN SER/PLAS 16.9 Normal [facility] Comment on above: Performed By: #### L [id number] #### [facility] ([facility]) [address] [place] [address] CBCon 08-27-2023 Erythrocyte distribution width (RBC) [Ratio] 15.5 % High 11.5-15.0 [facility] Comment on above: Performed By: #### L [id number] #### [facility] ([facility]) [address] [place] [address] ERYTHROCYTE MEAN CORPUSCULAR HEMOGLOBIN CONCENTRATION (G/DL) BY AUTOMATED 32.3 g/dL Normal 32.0-35.0 [facility] Comment on above: Performed By: #### L [id number] #### [facility] ([facility]) [address] [place] [address] Hematocrit (Bld) [Volume fraction] 29.7 % Low 39.0-55.0 [facility] Comment on above: Performed By: #### L [id number] #### [facility] ([facility]) [address] [place] [address] Hemoglobin (Bld) [Mass/Vol] 9.6 g/dL Low 13.0-17.0 [facility] Comment on above: Performed By: #### L [id number] #### [facility] ([facility]) [address] [place] [address] MCH (RBC) [Entitic mass] 28.9 pg Normal 27.0-33.0 [facility] Comment on above: Performed By: #### L [id number] #### [facility] ([facility]) [address] [place] [address] MCV (RBC) [Entitic vol] 89.5 fL Normal 82.0-98.0 [facility] Center Comment on above: Performed By: #### L [id number] #### [facility] ([facility]) [address] [place] [address] PLATELETS (10*3/UL) IN BLOOD AUTOMATED COUNT 803 10*3/uL High 150-400 [facility] Comment on above: Performed By: #### L [id number] #### [facility] ([facility]) [address] [place] [address] RBC (Bld) [#/Vol] 3.32 10*6/uL Low 4.20-5.70 [facility] Comment on above: Performed By: #### L [id number] #### [facility] ([facility]) [address] [place] [address] WBC (Bld) [#/Vol] 13.92 10*3/uL High 4.00-10.60 [facility] Comment on above: Performed By: #### L [id number] #### [facility] ([facility]) [address] [place] [address] MAGNESIUMon 08-27-2023 Magnesium [Mass/Vol] 2.4 mg/dL Normal 1.9-2.7 [facility] Comment on above: Performed By: #### L [id number] #### [facility] ([facility]) [address] [place] [address] PHOSPHORUSon 08-27-2023 Magnesium [Mass/Vol] 3.3 mg/dL Normal 2.5-5.0 [facility] Comment on above: Performed By: #### L [id number] #### [facility] ([facility]) [address] [place] [address] BASIC METABOLIC PANELon 04-0 Anion gap [Moles/Vol] 10 mmol/L Normal 7-20 [facility] Comment on above: Performed By: #### L [id number] #### [facility] ([facility]) [address] [place] [address] Calcium [Mass/Vol] 7.8 mg/dL Low 8.6-10.3 [facility] Comment on above: Performed By: #### L [id number] #### [facility] ([facility]) [address] [place] [address] Chloride [Moles/Vol] 96 mmol/L Low 98-107 [facility] Comment on above: Performed By: #### L [id number] #### [facility] ([facility]) [address] [place] [address] CO2 [Moles/Vol] 32 mmol/L High 21-31 [facility] Comment on above: Performed By: #### L [id number] #### [facility] [address] [place] [address] Creatinine [Mass/Vol] 2.38 mg/dL High 0.70-1.30 [facility] Comment on above: Performed By: #### L [id number] #### [facility] ([facility]) [address] [place] [address] GLOMERULAR FILTRATION RATE ML/MIN/1.73 SQ M.PREDICTED 28.4 mL/min/1.73m*2 Low >60.0 [facility] Comment on above: Result Comment: [facility]???s estimated glomerular filtration rate (eGFR) [...] individuals. Performed By: #### L [id number] #### [facility] ([facility]) [address] [place] [address] Glucose [Mass/Vol] 123 mg/dL High 70-100 [facility] Comment on above: Performed By: #### L [id number] #### [facility] ([facility]) [address] [place] [address] Potassium [Moles/Vol] 3.8 mmol/L Normal 3.5-5.1 [facility] Comment on above: Performed By: #### L [id number] #### [facility] ([facility]) [address] [place] [address] Sodium [Moles/Vol] 134 mmol/L Low 136-145 [facility] Comment on above: Performed By: #### L [id number] #### [facility] ([facility]) [address] [place] [address] Urea nitrogen [Mass/Vol] 33 mg/dL High 7-25 [facility] Comment on above: Performed By: #### L [id number] #### [facility] ([facility]) [address] [place] [address] UREA NITROGEN/CREATININE (MASS RATIO) IN SER/PLAS 13.9 Normal [facility] Comment on above: Performed By: #### L [id number] #### [facility] ([facility]) [address] [place] [address] CBC WITH AUTO DIFFERENTIALon 08-26-2023 Basophils (Bld) [#/Vol] 0.15 10*3/uL Normal 0.00-0.20 [facility] Comment on above: Performed By: #### L [id number] #### [facility] ([facility]) [address] [place] [address] Basophils/100 WBC (Bld) 1.2 % High 0.0-1.0 [facility] Comment on above: Performed By: #### L [id number] #### [facility] ([facility]) [address] [place] [address] Eosinophils (Bld) [#/Vol] 0.30 10*3/uL Normal 0.00-0.50 [facility] Comment on above: Performed By: #### L [id number] #### [facility] ([facility]) [address] [address] Eosinophils/100 WBC (Bld) 2.4 % Normal 0.0-6.0 [facility] Comment on above: Performed By: #### L [id number] #### [facility] ([facility]) [address] [address] Erythrocyte distribution width (RBC) [Ratio] 15.5 % High 11.5-15.0 [facility] Comment on above: Performed By: #### L [id number] #### [facility] ([facility]) [address] [place] [address] ERYTHROCYTE MEAN CORPUSCULAR HEMOGLOBIN CONCENTRATION (G/DL) BY AUTOMATED 32.0 g/dL Normal 32.0-35.0 [facility] Comment on above: Performed By: #### L [id number] #### [facility] ([facility]) [address] [place] [address] Hematocrit (Bld) [Volume fraction] 29.7 % Low 39.0-55.0 [facility] Comment on above: Performed By: #### L [id number] #### [facility] ([facility]) [address] [place] [address] Hemoglobin (Bld) [Mass/Vol] 9.5 g/dL Low 13.0-17.0 [facility] Comment on above: Performed By: #### L [id number] #### [facility] ([facility]) [address] [place] [address] Immature granulocytes (Bld) [#/Vol] 0.07 10*3/uL Normal 0.00-0.20 [facility] Comment on above: Performed By: #### L [id number] #### [facility] ([facility]) [address] [place] [address] Immature granulocytes/100 WBC (Bld) 0.6 % Normal 0.0-1.0 [facility] Comment on above: Performed By: #### L [id number] #### [facility] ([facility]) [address] [address] Lymphocytes (Bld) [#/Vol] 2.26 10*3/uL Normal 1.20-4.00 [facility] Comment on above: Performed By: #### L [id number] #### [facility] ([facility]) [address] [place] [address] Lymphocytes/100 WBC (Bld) 18.1 % Low 20.0-45.0 [facility] Comment on above: Performed By: #### L [id number] #### [facility] ([facility]) [address] [place] [address] MCH (RBC) [Entitic mass] 28.5 pg Normal 27.0-33.0 [facility] Comment on above: Performed By: #### L [id number] #### [facility] ([facility]) [address] [place] [address] MCV (RBC) [Entitic vol] 89.2 fL Normal 82.0-98.0 [facility] Comment on above: Performed By: #### L [id number] #### [facility] ([facility]) [address] [place] [address] Monocytes (Bld) [#/Vol] 1.40 10*3/uL High 0.10-1.00 [facility] Comment on above: Performed By: #### L [id number] #### [facility] ([facility]) [address] [place] [address] Monocytes/100 WBC (Bld) 11.2 % Normal 5.0-12.0 [facility] Comment on above: Performed By: #### L [id number] #### [facility] ([facility]) [address] [place] [address] Neutrophils (Bld) [#/Vol] 8.32 10*3/uL High 1.60-7.60 [facility] Comment on above: Performed By: #### L [id number] #### [facility] ([facility]) [address] [place] [address] Neutrophils/100 WBC (Bld) 66.5 % Normal 40.0-72.0 [facility] Comment on above: Performed By: #### L [id number] #### [facility] ([facility]) [address] [place] [address] NRBC (PER 100 WBCS) BY AUTOMATED COUNT 0.0 % Normal 0 [facility] Comment on above: Performed By: #### L [id number] #### [facility] ([facility]) [address] [place] [address] PLATELETS (10*3/UL) IN BLOOD AUTOMATED COUNT 885 10*3/uL High 150-400 [facility] Comment on above: Performed By: #### L [id number] #### [facility] ([facility]) [address] [place] [address] RBC (Bld) [#/Vol] 3.33 10*6/uL Low 4.20-5.70 [facility] Comment on above: Performed By: #### L [id number] #### [facility] ([facility]) [address] [place] [address] WBC (Bld) [#/Vol] 12.50 10*3/uL High 4.00-10.60 [facility] Comment on above: Performed By: #### L [id number] #### [facility] ([facility]) [address] [place] [address] HEPATITIS B SURFACE ANTIBODY QUANTon 08-26-2023 HEPATITIS B VIRUS SURFACE AB (MIU/ML) IN SERUM 0.01 mIU/mL Normal [facility] Comment on above: Result Comment: INTE RPRETATION: NONREACTIVE<8.00 mIU/mL INDETERMINATE8.00 - 12.00 mIU/mL REACTIVE>12 mIU/mL Performed By: #### L [id number] #### [facility] ([facility]) [address] [place] [address] HEPATITIS B SURFACE ANTIGENo n 08-26-2023 HEPATITIS B VIRUS SURFACE AG PRESENCE IN SERUM Non-Reactive Normal Nonreactive [facility] Comment on above: Performed By: #### L [id number] #### [facility] ([facility]) [address] [place] [address] MAGNESIUMon 08-26-2023 Magnesium [Mass/Vol] 2.2 mg/dL Normal 1.9-2.7 [facility] Comment on above: Performed By: #### L [id number] #### [facility] ([facility]) [address] [place] [address] CBC WITH AUTO DIFFERENTIALon 08-25-2023 Erythrocyte distribution width (RBC) [Ratio] 15.7 % High 11.5-15.0 [facility] Comment on above: Performed By: #### L [id number] #### [facility] ([facility]) [address] [place] [address] ERYTHROCYTE MEAN CORPUSCULAR HEMOGLOBIN CONCENTRATION (G/DL) BY AUTOMATED 33.1 g/dL Normal 32.0-35.0 [facility] Comment on above: Performed By: #### L [id number] #### [facility] ([facility]) [address] [place] [address] Hematocrit (Bld) [Volume fraction] 28.7 % Low 39.0-55.0 [facility] Comment on above: Performed By: #### L [id number] #### [facility] ([facility]) [address] [place] [address] Hemoglobin (Bld) [Mass/Vol] 9.5 g/dL Low 13.0-17.0 [facility] Comment on above: Performed By: #### L [id number] #### [facility] ([facility]) [address] [place] [address] MCH (RBC) [Entitic mass] 29.7 pg Normal 27.0-33.0 [facility] Comment on above: Performed By: #### L [id number] #### [facility] ([facility]) [address] [place] [address] MCV (RBC) [Entitic vol] 89.7 fL Normal 82.0-98.0 [facility] Comment on above: Performed By: #### L [id number] #### [facility] ([facility]) [address] [place] [address] NRBC (PER 100 WBCS) BY AUTOMATED COUNT 0.0 % Normal 0 [facility] Comment on above: Performed By: #### L [id number] #### [facility] ([facility]) [address] [place] [address] PLATELETS (10*3/UL) IN BLOOD AUTOMATED COUNT 911 10*3/uL High 150-400 [facility] Comment on above: Performed By: #### L [id number] #### [facility]) [address] [place] [address] RBC (Bld) [#/Vol] 3.20 10*6/uL Low 4.20-5.70 [facility] Comment on above: Performed By: #### L [id number] #### [facility] ([facility]) [address] [place] [address] WBC (Bld) [#/Vol] 19.13 10*3/uL High 4.00-10.60 [facility] Comment on above: Performed By: #### L [id number] #### [facility] ([facility]) [address] [place] [address] COMPREHENSIVE METABOLIC PANE Neil 08-25-2023 Albumin [Mass/Vol] 2.5 g/dL Low 3.5-5.7 [facility] Comment on above: Performed By: #### L [id number] #### [facility] ([facility]) [address] [place] [address] ALP [Catalytic activity/Vol] 91 U/L Normal 34-104 [facility] Comment on above: Performed By: #### L [id number] #### [facility] ([facility]) [address] [place] [address] ALT [Catalytic activity/Vol] 8 U/L Normal 7-52 [facility] Comment on above: Performed By: #### L [id number] #### [facility] ([facility]) [address] [place] [address] Anion gap [Moles/Vol] 12 mmol/L Normal 7-20 [facility] Comment on above: Performed By: #### L [id number] #### [facility] ([facility]) [address] [place] [address] AST [Catalytic activity/Vol] 14 U/L Normal 13-39 [facility] Comment on above: Performed By: #### L [id number] #### [facility] ([facility]) [address] [place] [address] Bilirubin [Mass/Vol] 0.4 mg/dL Normal 0.3-1.0 [facility] Comment on above: Performed By: #### L [id number] #### [facility] ([facility]) [address] [place] [address] Calcium [Mass/Vol] 8.2 mg/dL Low 8.6-10.3 [facility] Comment on above: Performed By: #### L [id number] #### [facility] ([facility]) [address] [place] [address] Chloride [Moles/Vol] 97 mmol/L Low 98-107 [facility] Comment on above: Performed By: #### L [id number] #### [facility] ([facility]) [address] [place] [address] CO2 [Moles/Vol] 28 mmol/L Normal 21-31 [facility] Comment on above: Performed By: #### L [id number] #### [facility] ([facility]) [address] [place] [address] Creatinine [Mass/Vol] 2.95 mg/dL High 0.70-1.30 [facility] Comment on above: Performed By: #### L [id number] #### [facility] ([facility]) [address] [place] [address] GLOMERULAR FILTRATION RATE ML/MIN/1.73 SQ M.PREDICTED 22.0 mL/min/1.73m*2 Low >60.0 [facility] Comment on above: Result Comment: [facility]???s estimated glomerular filtration rate (eGFR) [...] individuals. Performed By: #### L [id number] #### [facility] ([facility]) [address] [place] [address] Glucose [Mass/Vol] 139 mg/dL High 70-100 [facility] Comment on above: Performed By: #### L [id number] #### [facility] ([facility]) [address] [place] [address] Potassium [Moles/Vol] 3.6 mmol/L Normal 3.5-5.1 [facility] Comment on above: Performed By: #### L [id number] #### [facility] ([facility]) [address] [place] [address] Protein [Mass/Vol] 6.7 g/dL Normal 6.0-8.3 [facility] Comment on above: Performed By: #### L [id number] #### [facility] ([facility]) [address] [place] [address] Sodium [Moles/Vol] 133 mmol/L Low 136-145 [facility] Comment on above: Performed By: #### L [id number] #### [facility] ([facility]) [address] [address] Urea nitrogen [Mass/Vol] 52 mg/dL High 7-25 [facility] Comment on above: Performed By: #### L [id number] #### [facility] ([facility]) [address] [place] [address] UREA NITROGEN/CREATININE (MASS RATIO) IN SER/PLAS 17.6 Normal [facility] Comment on above: Performed By: #### L [id number] #### [facility] ([facility]) [address] [place] [address] MAGNESIUMon 08-25-2023 Magnesium [Mass/Vol] 2.4 mg/dL Normal 1.9-2.7 [facility] Comment on above: Performed By: #### L [id number] #### [facility] ([facility]) [address] [place] [address] MANUAL DIFFERENTIALon 2023 BASOPHILS (10*3/UL) IN BLOOD BY CALCULATION 0.17 10*3/uL Normal 0.00-0.20 [facility] Comment on above: Performed By: #### L [id number] #### [facility] ([facility]) [address] [place] [address] BASOPHILS/100 LEUKOCYTES IN BLOOD BY AUTOMATED COUNT 0.9 % Normal 0.0-1.0 [facility] Comment on above: Performed By: #### L [id number] #### [facility] ([facility]) [address] [place] [address] EOSINOPHILS (10*3/UL) IN BLOOD BY CALCULATION 0.15 10*3/uL Normal 0.00-0.50 [facility] Comment on above: Performed By: #### L [id number] #### [facility] ([facility]) [address] [place] [address] EOSINOPHILS/100 LEUKOCYTES IN BLOOD BY AUTOMATED COUNT 0.8 % Normal 0.0-6.0 [facility] Comment on above: Performed By: #### L [id number] #### [facility] ([facility]) [address] [place] [address] IMMATURE GRANULOCYTES (10*3/UL) IN BLOOD BY CALCULATION 0.15 10*3/uL Normal 0.00-0.20 [facility] Comment on above: Performed By: #### L [id number] #### [facility] ([facility]) [address] [place] [address] IMMATURE GRANULOCYTES/100 LEUKOCYTES IN BLOOD BY AUTOMATED COUNT 0.8 % Normal 0.0-1.0 [facility] Comment on above: Performed By: #### L [id number] #### [facility] ([facility]) [address] [place] [address] LYMPHOCYTES (10*3/UL) IN BLOOD BY CALCULATION 1.99 10*3/uL Normal 1.20-4.00 [facility] Comment on above: Performed By: #### L [id number] #### [facility] ([facility]) [address] [place] [address] LYMPHOCYTES/100 LEUKOCYTES IN BLOOD BY AUTOMATED COUNT 10.4 % Low 20.0-45.0 [facility] Comment on above: Performed By: #### L [id number] #### [facility] ([facility]) [address] [place] [address] MONOCYTES (10*3/UL) IN BLOOD BY CALCUATION 2.03 10*3/uL High 0.10-1.00 [facility] Comment on above: Performed By: #### L [id number] #### [facility] ([facility]) [address] [place] [address] MONOCYTES/100 LEUKOCYTES IN BLOOD BY AUTOMATED COUNT 10.6 % Normal 5.0-12.0 [facility] Comment on above: Performed By: #### L [id number] #### [facility] ([facility]) [address] [place] [address] NEUTROPHILS (10*3/UL) IN BLOOD BY CALCULATION 14.6 10*3/uL High 1.6-7.6 [facility] Comment on above: Performed By: #### L [id number] #### [facility] ([facility]) [address] [place] [address] NEUTROPHILS/100 LEUKOCYTES IN BLOOD BY AUTOMATED COUNT 76.5 % High 40.0-72.0 [facility] Comment on above: Performed By: #### L [id number] #### [facility] ([facility]) [address] [place] [address] PHOSPHORUSon 08-25-2023 Magnesium [Mass/Vol] 3.1 mg/dL Normal 2.5-5.0 [facility] Comment on above: Performed By: #### L [id number] #### [facility] ([facility]) [address] [place] [address] PREALBUMINon 08-25-2023 Prealbumin [Mass/Vol] 11.9 mg/dL Normal [facility] Comment on above: Performed By: #### L [id number] #### [facility] ([facility]) [address] [place] [address] CBC WITH AUTO DIFFERENTIALon 08-24-2023 Erythrocyte distribution width (RBC) [Ratio] 15.7 % High 11.5-15.0 [facility] Comment on above: Performed By: #### L [id number] #### [facility] ([facility]) [address] [place] [address] ERYTHROCYTE MEAN CORPUSCULAR HEMOGLOBIN CONCENTRATION (G/DL) BY AUTOMATED 32.8 g/dL Normal 32.0-35.0 [facility] Comment on above: Performed By: #### L [id number] #### [facility] ([facility]) [address] [place] [address] Hematocrit (Bld) [Volume fraction] 29.3 % Low 39.0-55.0 [facility] Comment on above: Performed By: #### L [id number] #### [facility] ([facility]) [address] [place] [address] Hemoglobin (Bld) [Mass/Vol] 9.6 g/dL Low 13.0-17.0 [facility] Comment on above: Performed By: #### L [id number] #### [facility] ([facility]) [address] [place] [address] MCH (RBC) [Entitic mass] 29.3 pg Normal 27.0-33.0 [facility] Comment on above: Performed By: #### L [id number] #### [facility] ([facility]) [address] [place] [address] MCV (RBC) [Entitic vol] 89.3 fL Normal 82.0-98.0 [facility] Comment on above: Performed By: #### L [id number] #### [facility] ([facility]) [address] [place] [address] NRBC (PER 100 WBCS) BY AUTOMATED COUNT 0.0 % Normal 0 [facility] Comment on above: Performed By: #### L [id number] #### [facility] [address] [place] [address] PLATELETS (10*3/UL) IN BLOOD AUTOMATED COUNT 909 10*3/uL High 150-400 [facility] Comment on above: Performed By: #### L [id number] #### [facility] ([facility]) [address] [place] [address] RBC (Bld) [#/Vol] 3.28 10*6/uL Low 4.20-5.70 [facility] Comment on above: Performed By: #### L [id number] #### [facility] ([facility]) [address] [place] [address] WBC (Bld) [#/Vol] 13.48 10*3/uL High 4.00-10.60 [facility] Comment on above: Performed By: #### L [id number] #### [facility] ([facility]) [address] [place] [address] COMPREHENSIVE METABOLIC PANE Neil 08-24-2023 Albumin [Mass/Vol] 2.6 g/dL Low 3.5-5.7 [facility] Comment on above: Performed By: #### L [id number] #### [facility] ([facility]) [address] [place] [address] ALP [Catalytic activity/Vol] 100 U/L Normal 34-104 [facility] Comment on above: Performed By: #### L [id number] #### [facility] ([facility]) [address] [place] [address] ALT [Catalytic activity/Vol] 10 U/L Normal 7-52 [facility] Comment on above: Performed By: #### L [id number] #### [facility] ([facility]) [address] [place] [address] Anion gap [Moles/Vol] 11 mmol/L Normal 7-20 [facility] Comment on above: Performed By: #### L [id number] #### [facility] ([facility]) [address] [place] [address] AST [Catalytic activity/Vol] 15 U/L Normal 13-39 [facility] Comment on above: Performed By: #### L AB15 #### [facility] [address] [place] [address] Bilirubin [Mass/Vol] 0.3 mg/dL Normal 0.3-1.0 [facility] Comment on above: Performed By: #### L [id number] #### [facility] [address] [place] [address] Calcium [Mass/Vol] 8.7 mg/dL Normal 8.6-10.3 [facility] Comment on above: Performed By: #### L AB15 #### [facility] [address] [place] [address] Chloride [Moles/Vol] 96 mmol/L Low 98-107 [facility] Comment on above: Performed By: #### L [id number] #### [facility] [address] [place] [address] CO2 [Moles/Vol] 29 mmol/L Normal 21-31 [facility] Comment on above: Performed By: #### L AB15 #### [facility] ([facility] [address] [place] [address] Creatinine [Mass/Vol] 2.47 mg/dL High 0.70-1.30 [facility] Comment on above: Performed By: #### L AB15 #### [facility] ([facility]) [address] [place] [address] GLOMERULAR FILTRATION RATE ML/MIN/1.73 SQ M.PREDICTED 27.2 mL/min/1.73m*2 Low >60.0 [facility] Comment on above: Result Comment: [facility]???s estimated glomerular filtration rate (eGFR) [...] individuals. Performed By: #### L AB15 #### [facility] ([facility]) [address] [place] [address] Glucose [Mass/Vol] 133 mg/dL High 70-100 [facility] Comment on above: Performed By: #### L AB15 #### [facility] ([facility]) [address] [place] [address] Potassium [Moles/Vol] 3.5 mmol/L Normal 3.5-5.1 [facility] Comment on above: Performed By: #### L AB15 #### [facility] ([facility]) [address] [place] [address] Protein [Mass/Vol] 6.5 g/dL Normal 6.0-8.3 [facility] Comment on above: Performed By: #### L AB15 #### [facility] ([facility]) [address] [place] [address] Sodium [Moles/Vol] 132 mmol/L Low 136-145 [facility] Comment on above: Performed By: #### L AB15 #### [facility] ([facility]) [address] [place] [address] Urea nitrogen [Mass/Vol] 38 mg/dL High 7-25 [facility] Comment on above: Performed By: #### L AB15 #### [facility] ([facility]) [address] [place] [address] UREA NITROGEN/CREATININE (MASS RATIO) IN SER/PLAS 15.4 Normal [facility] Comment on above: Performed By: #### L [id number] #### [facility] ([facility]) [address] [place] [address] MAGNESIUMon 08-24-2023 Magnesium [Mass/Vol] 2.4 mg/dL Normal 1.9-2.7 [facility] Comment on above: Performed By: #### L AB15 #### [facility] ([facility]) [address] [place] [address] MANUAL DIFFERENTIALon 2023 BASOPHILS (10*3/UL) IN BLOOD BY CALCULATION 0.13 10*3/uL Normal 0.00-0.20 [facility] Comment on above: Performed By: #### L [id number] #### [facility] ([facility]) [address] [place] [address] BASOPHILS/100 LEUKOCYTES IN BLOOD BY AUTOMATED COUNT 1.0 % Normal 0.0-1.0 [facility] Comment on above: Performed By: #### L [id number] #### [facility] ([facility]) [address] [place] [address] EOSINOPHILS (10*3/UL) IN BLOOD BY CALCULATION 0.30 10*3/uL Normal 0.00-0.50 [facility] Comment on above: Performed By: #### L [id number] #### [facility] ([facility]) [address] [place] [address] EOSINOPHILS/100 LEUKOCYTES IN BLOOD BY AUTOMATED COUNT 2.2 % Normal 0.0-6.0 [facility] Comment on above: Performed By: #### L [id number] #### [facility] ([facility]) [address] [place] [address] IMMATURE GRANULOCYTES (10*3/UL) IN BLOOD BY CALCULATION 0.08 10*3/uL Normal 0.00-0.20 [facility] Comment on above: Performed By: #### L [id number] #### [facility] ([facility]) [address] [place] [address] IMMATURE GRANULOCYTES/100 LEUKOCYTES IN BLOOD BY AUTOMATED COUNT 0.6 % Normal 0.0-1.0 [facility] Comment on above: Performed By: #### L [id number] #### [facility] ([facility]) [address] [place] [address] LYMPHOCYTES (10*3/UL) IN BLOOD BY CALCULATION 1.83 10*3/uL Normal 1.20-4.00 [facility] Comment on above: Performed By: #### L [id number] #### [facility] ([facility]) [address] [address] LYMPHOCYTES/100 LEUKOCYTES IN BLOOD BY AUTOMATED COUNT 13.6 % Low 20.0-45.0 [facility] Comment on above: Performed By: #### L [id number] #### [facility] ([facility]) [address] [place] [address] MONOCYTES (10*3/UL) IN BLOOD BY CALCUATION 1.77 10*3/uL High 0.10-1.00 [facility] Comment on above: Performed By: #### L [id number] #### [facility] ([facility]) [address] [place] [address] MONOCYTES/100 LEUKOCYTES IN BLOOD BY AUTOMATED COUNT 13.1 % High 5.0-12.0 [facility] Comment on above: Performed By: #### L [id number] #### [facility] ([facility]) [address] [place] [address] NEUTROPHILS (10*3/UL) IN BLOOD BY CALCULATION 9.4 10*3/uL High 1.6-7.6 [facility] Comment on above: Performed By: #### L [id number] #### [facility] ([facility]) [address] [place] [address] NEUTROPHILS/100 LEUKOCYTES IN BLOOD BY AUTOMATED COUNT 69.5 % Normal 40.0-72.0 [facility] Comment on above: Performed By: #### L [id number] #### [facility] ([facility]) [address] [place] [address] PHOSPHORUSon 08-24-2023 Magnesium [Mass/Vol] 3.1 mg/dL Normal 2.5-5.0 [facility] Comment on above: Performed By: #### L AB15 #### [facility] [address] [place] [address] PREALBUMINon 08-24-2023 Prealbumin [Mass/Vol] 12.2 mg/dL Normal [facility] Comment on above: Performed By: #### L AB15 #### [facility] ([facility]) [address] [place] [address] Capillary blood glucose nic urement by glucometer (mass/volume)Ordered By: Arnaldo Thomas on 08-23-2023 Glucose [Mass/Vol] 99 mg/dL Normal [facility] Comment on above: Random Glucose Refer ence Range is dependent on time and content of last meal. Glucose of more than 200 mg/dL in a nonstressed, ambulatory subject supports the diagnosis of Diabetes Mellitus. Result Comment: [place] om Glucose Reference Range is dependent on time and content of last meal. Glucose of more than 200 mg/dL in a nonstressed, ambulatory subject supports the diagnosis of Diabetes Mellitus. Performed By: #### G LULS ####Point of Care testing, Glucose Poct Glucometerson 0 08-23-2023 Commemt1 Glu2: Cleaned Meter Normal [facility] Comment on above: Result Comment: PERF ORMED BY:[place] [address] [address] [place] [phone] MEDICAL DIRECTORJOSEPH GARCIA M.D. Performed By: #### G LULS ####Point of Care testing, Glucose [Mass/Vol] 218 mg/dL Normal [facility] Comment on above: Result Comment: [place] om Glucose Reference Range is dependent on time and content of last meal. Glucose of more than 200 mg/dL in a nonstressed, ambulatory subject supports the diagnosis of Diabetes Mellitus.PERFORMED BY:[address] [place], [place] [phone] MEDICAL DIRECTORJOSEPH GARCIA M.D. Performed By: #### G LULS ####Point of Care testing, Glucose [Mass/Vol] 189 mg/dL Normal [facility] Comment on above: Result Comment: [place] om Glucose Reference Range is dependent on time and content of last meal. Glucose of more than 200 mg/dL in a nonstressed, ambulatory subject supports the diagnosis of Diabetes Mellitus.PERFORMED BY:[address] [place], [place] [phone] MEDICAL DIRECTORJOSEPH GARCIA M.D. Performed By: #### G LUANURAG ####Point of Care testing, No Panel InformationOrdered By: Arnaldo Thomas on 08-23-2023 Bedside Glucose Comment Glu2: cleaned meter [facility] Glu2: cleaned meter [facility] Albumin [Mass/volume] in Ser um or Plasma by Bromocresol green (BCG) dye binding methoOrdered By: Sury Winkler on 08-22-2023 Albumin BCG dye [Mass/Vol] 2.5 g/dL 3.5-5.7 [facility] Calcium [Mass/volume] in Ser um or PlasmaOrdered By: Sury Winkler on 08-22-2023 Calcium [Mass/Vol] 8.9 mg/dL Normal 8.6-10.3 [facility] Comment on above: Performed By: #### R ENAL ####[address] [address] [facility] Carbon dioxide, total [Moles /volume] in Serum or PlasmaOrdered By: Sury Winkler on 08-22-2023 CO2 [Moles/Vol] 30.9 mmol/L Normal 21.0-31.0 [facility] Comment on above: Performed By: #### R ENAL ####[address] [address] [place] Chloride [Moles/volume] in S rene or PlasmaOrdered By: Sury Winkler on 08-22-2023 Chloride [Moles/Vol] 95 mmol/L Low 98-107 [facility] Comment on above: Performed By: #### R ENAL ####[address] [address] [place] Creatinine [Mass/volume] in Serum or PlasmaOrdered By: Sury Winkler on 08-22-2023 Creatinine [Mass/Vol] 3.00 mg/dL Significan t change up 0.70-1.30 [facility] Comment on above: Delta: 2.13 on 08/20 Performed By: #### R ENAL ####[address] [place] [address] [facility] Creatinine [Mass/volume] in UrineOrdered By: Sury Winkler on 08-22-2023 Creatinine (U) [Mass/Vol] 259.0 mg/dL [facility] Comment on above: No reference range e stablished Creatinine, Urine (Random)on 08-22-2023 Creatinine, Urine (Random) 259.0 mg/dL Normal [facility] Comment on above: Result Comment: No r eference range established Performed By: #### U NA, UCREA ####[address] [address] [facility] Glucose Poct Glucometerson 0 08-22-2023 Glucose [Mass/Vol] 162 mg/dL Normal [facility] Comment on above: Result Comment: [facility] Glucose Reference Range is dependent on time and content of last meal. Glucose of more than 200 mg/dL in a nonstressed, ambulatory subject supports the diagnosis of Diabetes Mellitus.PERFORMED BY:[address] [place], [place] [phone] MEDICAL DIRECTORJOSEPH GARCIA M.D. Performed By: #### G LULS ####Point of Care testing, Glucose [Mass/Vol] 141 mg/dL Normal [facility] Comment on above: Result Comment: [facility] Glucose Reference Range is dependent on time and content of last meal. Glucose of more than 200 mg/dL in a nonstressed, ambulatory subject supports the diagnosis of Diabetes Mellitus.PERFORMED BY:[address] [place], [place] [phone] MEDICAL SILVIA GARCIA M.D. Performed By: #### G LULS ####Point of Care testing, Glucose [Mass/Vol] 182 mg/dL Normal [facility] Comment on above: Result Comment: [facility] Glucose Reference Range is dependent on time and content of last meal. Glucose of more than 200 mg/dL in a nonstressed, ambulatory subject supports the diagnosis of Diabetes Mellitus.PERFORMED BY:[facility] [place], [place] [phone] MEDICAL DIRECTORJOSEPH GARCIA M.D. Performed By: #### G LULS ####Point of Care testing, Glucose [Mass/Vol] 192 mg/dL Normal [facility] Comment on above: Result Comment: [place] Glucose Reference Range is dependent on time and content of last meal. Glucose of more than 200 mg/dL in a nonstressed, ambulatory subject supports the diagnosis of Diabetes Mellitus.PERFORMED BY:[address] [place], [place] [phone] MEDICAL DIRECTORJOSEPH GARCIA M.D. Performed By: #### G LUANUARG ####Point of Care testing, Glucose [Mass/volume] in Ser um or PlasmaOrdered By: Sury Winkler on 08-22-2023 Glucose [Mass/Vol] 161 mg/dL High 70-100 [facility] Comment on above: ADA recommended refe rence rangeRandom Glucose Reference Range is dependent on time and content of last meal. Glucose of more than 200 mg/dL in a nonstressed, ambulatory subject supports the diagnosis of Diabetes Mellitus. Result Comment: [place] Glucose Reference Range is dependent on time and content of last meal. Glucose of more than 200 mg/dL in a nonstressed, ambulatory subject supports the diagnosis of Diabetes Mellitus. ADA recommended reference range Performed By: #### R ENAL ####[facility] [id number] [place] [address] [facility] No Panel InformationOrdered By: Sury Winkler on 08-22-2023 Estimated GFR (CKD-EPI) 21.531 mL/Min [facility] Creatinine Clearance (Chem 24.07 [facility] 21.531 mL/Min [facility] 24.07 [facility] Phosphate [Mass/volume] in S rene or PlasmaOrdered By: Sury Winkler on 08-22-2023 Phosphate [Mass/Vol] 4.9 mg/dL High 2.5-4.5 [facility] Comment on above: Performed By: #### R ENAL ####[address] [address] [facility] Potassium [Moles/volume] in Serum or PlasmaOrdered By: Sury Winkler on 08-22-2023 Potassium [Moles/Vol] 4.8 mmol/L Normal 3.5-5.1 [facility] Comment on above: Performed By: #### R ENAL ####[place] [id number] [facility] Renal Function Panelon 08-21 Albumin [Mass/Vol] 2.5 g/dL Low 3.5-5.7 [facility] Comment on above: Performed By: #### R ENAL ####[place] [id number] [facility] Creatinine Clr Calc Pharmacy 24.07 Normal [facility] Comment on above: Result Comment: PERF ORMED BY:[address] [place], [place] [phone] MEDICAL DIRECTORJOSEPH GARCIA M.D. Performed By: #### R ENAL ####[place] [id number] [facility] GFR/1.73 sq M.predicted MDRD (S/P/Bld) [Vol rate/Area] 21.531 mL/min/{1.73_m2} Normal [facility] Comment on above: Performed By: #### R ENAL ####[place] [id number] [facility] Serum or plasma anion gap de terminationOrdered By: Sury Winkler on 08-22-2023 Anion gap [Moles/Vol] 11.9 mmol/L Normal 6.0-15.0 [facility] Comment on above: Performed By: #### R ENAL ####[place] [id number] [facility] Sodium [Moles/volume] in Ser um or PlasmaOrdered By: Sury Winkler on 08-22-2023 Sodium [Moles/Vol] 133 mmol/L Low 136-145 [facility] Comment on above: Performed By: #### R ENAL ####[place] [id number] [facility] Sodium [Moles/volume] in Uri neOrdered By: Sury Winkler on 08-22-2023 Sodium (U) [Moles/Vol] 33 mmol/L Normal [facility] Comment on above: No reference range e stablished Result Comment: No r eference range establishedPERFORMED BY:[address] [address] [place], [place] [phone] MEDICAL DIRECTORJOSEPH GARCIA M.D. Performed By: #### U NA, UCREA ####[address] Urea nitrogen [Mass/volume] in Serum or PlasmaOrdered By: Sury Winkler on 08-22-2023 Urea nitrogen [Mass/Vol] 55 mg/dL High 7-25 [facility] Comment on above: Performed By: #### R ENAL ####[address] Automated basophil %Ordered By: Geo Thomas on 08-21-2023 Basophils/100 WBC (Bld) 0.9 % Normal . [facility] Comment on above: Order Comment: DRAW LAST PER RN EMMANUEL Performed By: #### F ER, CBC, BMP, FE and TIBC ####[place] [id number] [facility] Automated basophil countOrde red By: Geo Thomas on 08-21-2023 Basophils (Bld) [#/Vol] 0.1 10*3/uL Normal 0.0-0.2 [facility] Comment on above: Order Comment: DRAW LAST PER RN EMMANUEL Result Comment: PERF ORMED BY:[address] [address] [address] [place], [place] [phone] MEDICAL DIRECTORJOSEPH GARCIA M.D. Performed By: #### F ER, CBC, BMP, FE and TIBC ####[facility] [id number] Automated eosinophil %Ordere d By: Geo Thomas on 08-21-2023 Eosinophils/100 WBC (Bld) 0.8 % Normal . [facility] Comment on above: Order Comment: DRAW LAST PER RN EMMANUEL Performed By: #### F ER, CBC, BMP, FE and TIBC ####[place] [address] Automated eosinophil countOr dered By: Geo Thomas on 08-21-2023 Eosinophils (Bld) [#/Vol] 0.1 10*3/uL Normal 0.0-0.45 [facility] Comment on above: Order Comment: DRAW LAST PER RN EMMANUEL Performed By: #### F ER, CBC, BMP, FE and TIBC ####[address] Automated erythrocytes count in urine sediment (number/area)Ordered By: Sury Winkler on 08-21-2023 RBC Auto (Urine sed) [#/Area] 3-4 [HPF] 0-4 [facility] Automated leukocytes count i n urine sediment (number/area)Ordered By: Sury Winkler on 08-21-2023 WBC Auto (Urine sed) [#/Area] 50-100 [HPF] 0-4 [facility] Automated monocyte %Ordered By: Geo Thomas on 08-21-2023 Monocytes/100 WBC (Bld) 16.8 % Normal . [facility] Comment on above: Order Comment: DRAW LAST PER RN EMMANUEL Performed By: #### F ER, CBC, BMP, FE and TIBC ####[place] [address] Automated neutrophil %Ordere d By: Geo Thomas on 08-21-2023 Neutrophils/100 WBC (Bld) 70.0 % Normal . [facility] Comment on above: Order Comment: DRAW LAST PER RN EMMANUEL Performed By: #### F ER, CBC, BMP, FE and TIBC ####[place] [address] Automated urine color determ inationOrdered By: Sury Winkler on 08-21-2023 Color (U) Dark yellow Critically abnormal Yellow [facility] Comment on above: Order Comment: Name Collection Type:: Santana Catheter Performed By: #### C UU, ADDONUAPLUS ####[address] Automated urine hyaline cast s count (number/volume)Ordered By: Sury Winkler on 08-21-2023 Hyaline casts Auto (U) [#/Vol] 50-100 [LPF] 0-1 [facility] Bacteria identified Cx Nom ( U)Ordered By: Sury Winkler on 08-21-2023 Urine culture routine Klebsiella pneumon iae (CRE) [facility] Basic Metabolic Panelon 07-25 Anion gap [Moles/Vol] 10.4 mmol/L Normal 6.0-15.0 [facility] Comment on above: Order Comment: DRAW LAST PER RN EMMANUEL Performed By: #### F ER, CBC, BMP, FE and TIBC ####[address] Calcium [Mass/Vol] 8.3 mg/dL Low 8.6-10.3 [facility] Comment on above: Order Comment: DRAW LAST PER RN EMMANUEL Performed By: #### F ER, CBC, BMP, FE and TIBC ####[address] Chloride [Moles/Vol] 96 mmol/L Low 98-107 [facility] Comment on above: Order Comment: DRAW LAST PER RN EMMANUEL Performed By: #### F ER, CBC, BMP, FE and TIBC ####[address] CO2 [Moles/Vol] 30.4 mmol/L Normal 21.0-31.0 [facility] Comment on above: Order Comment: DRAW LAST PER RN EMMANUEL Performed By: #### F ER, CBC, BMP, FE and TIBC ####[facility] [place] [address] [facility] Creatinine [Mass/Vol] 2.13 mg/dL High 0.70-1.30 [facility] Comment on above: Order Comment: DRAW LAST PER RN EMMANUEL Performed By: #### F ER, CBC, BMP, FE and TIBC ####[facility] [place] [address] [facility] Creatinine Clr Calc Pharmacy 33.69 Normal [facility] Comment on above: Order Comment: DRAW LAST PER RN EMMANUEL Performed By: #### F ER, CBC, BMP, FE and TIBC ####[place] [address] [place] [id number] [facility] GFR/1.73 sq M.predicted MDRD (S/P/Bld) [Vol rate/Area] 32.475 mL/min/{1.73_m2} Normal [facility] Comment on above: Order Comment: DRAW LAST PER RN EMMANUEL Performed By: #### F ER, CBC, BMP, FE and TIBC ####[place] [address] [place] [id number] [facility] Glucose [Mass/Vol] 167 mg/dL High 70-100 [facility] Comment on above: Order Comment: DRAW LAST PER RN EMMANUEL Result Comment: [place] Glucose Reference Range is dependent on time and content of last meal. Glucose of more than 200 mg/dL in a nonstressed, ambulatory subject supports the diagnosis of Diabetes Mellitus. ADA recommended reference range Performed By: #### F ER, CBC, BMP, FE and TIBC ####[place] [address] [place] [id number] [facility] Potassium [Moles/Vol] 4.8 mmol/L Normal 3.5-5.1 [facility] Comment on above: Order Comment: DRAW LAST PER RN EMMANUEL Performed By: #### F ER, CBC, BMP, FE and TIBC ####[place] [address] [place] [id number] [facility] Sodium [Moles/Vol] 132 mmol/L Low 136-145 [facility] Comment on above: Order Comment: DRAW LAST PER RN EMMANUEL Performed By: #### F ER, CBC, BMP, FE and TIBC ####[place] [address] Urea nitrogen [Mass/Vol] 36 mg/dL Significant change up 12-17 [facility] Comment on above: Order Comment: DRAW LAST PER RN EMMANUEL Performed By: #### F ER, CBC, BMP, FE and TIBC ####[place] [address] Bilirubin Test strip Ql (U)O rdered By: Sury Winkler on 08-21-2023 Bilirubin Ql (U) 3+ Negative [facility] Casts typing in urine sedime nt by light microscopyOrdered By: Sury Winkler on 08-21-2023 Casts LM Nom (Urine sed) None seen [LPF] None Seen [facility] Coarse granular casts count in urine sediment by microscopy low power field (number/aOrdered By: Sury Winkler on 08-21-2023 Coarse Granular Casts LM.LPF (Urine sed) [#/Area] 1-2 [LPF] 0-1 [facility] Complete Blood Count Auto Di ffon 08-21-2023 Mean Corpuscular HGB Conc 33.2 g/dL Normal 32.5-35.6 [facility] Comment on above: Order Comment: DRAW LAST PER RN EMMANUEL Performed By: #### F ER, CBC, BMP, FE and TIBC ####[address] Monocytes # (Auto) Normal 0.0-0.8 [facility] Comment on above: Order Comment: DRAW LAST PER RN EMMANUEL Result Comment: Abso lute monocytosis is commonly reactive in nature. However, if unexplained, recommend follow-up CBC in 3 months to evaluate for persistence. Performed By: #### F ER, CBC, BMP, FE and TIBC ####[place] [address] NRBC% 0.0 /100{WBC} Normal 0-0.5 [facility] Comment on above: Order Comment: DRAW LAST PER RN EMMANUEL Performed By: #### F ER, CBC, BMP, FE and TIBC ####[address] [address] [facility] Dipstick and Microscopicon 0 08-21-2023 Appearance (U) Turbid Critically abnormal Clear [facility] [facility] Comment on above: Order Comment: Name Collection Type:: Santana Catheter Performed By: #### C UU, ADDONUAPLUS ####[address] [address] [facility] Bacteria,Urine 4+ High None Seen [facility] Comment on above: Order Comment: Name Collection Type:: Santana Catheter Performed By: #### C UU, ADDONUAPLUS ####[address] [address] [facility] Bilirubin,Urine 3+ High Negative The [facility] Comment on above: Order Comment: Name Collection Type:: Santana Catheter Performed By: #### C UU, ADDONUAPLUS ####[address] [address] [facility] Coarse Granular Casts,Urine 1-2 High 0-1 [facility] Comment on above: Order Comment: Name Collection Type:: Santana Catheter Performed By: #### C UU, ADDONUAPLUS ####[address] [address] [facility] Glucose Ql (U) Normal Normal Normal [facility] Comment on above: Order Comment: Name Collection Type:: Santana Catheter Performed By: #### C UU, ADDONUAPLUS ####[address] [address] [place] Hyaline Casts,Urine 50-100 High 0-[address] [facility] Comment on above: Order Comment: Name Collection Type:: Santana Catheter Performed By: #### C UU, ADDONUAPLUS ####[address] [address] [facility] Ketones Ql (U) Trace High Negative [facility] Comment on above: Order Comment: Name Collection Type:: Santana Catheter Performed By: #### C UU, ADDONUAPLUS ####[address] [address] [facility] Leukocyte esterase Test strip Ql (U) 3+ High Negative [facility] Comment on above: Order Comment: Name Collection Type:: Santana Catheter Performed By: #### C UU, ADDONUAPLUS ####[address] [place] [address] [facility] Nitrite,Urine Positive High Negative [facility] Comment on above: Order Comment: Name Collection Type:: Santana Catheter Performed By: #### C UU, ADDONUAPLUS ####[address] [address] [facility] Occult Blood,Urine 2+ High Negative [facility] Comment on above: Order Comment: Name Collection Type:: Santana Catheter Result Comment: PERF ORMED BY:[address] [place], [place] [phone] MEDICAL DIRECTORJOSEPH GARCIA M.D. Performed By: #### C UU, ADDONUAPLUS ####[address] [address] [facility] Other Casts,Urine None Seen Normal None Seen The [facility] Comment on above: Order Comment: Name Collection Type:: Santana Catheter Performed By: #### C UU, ADDONUAPLUS ####[address] [address] [facility] RBC,Urine 3-4 Normal 0-4 [facility] Comment on above: Order Comment: Name Collection Type:: Santana Catheter Performed By: #### C UU, ADDONUAPLUS ####[address] [address] [facility] Specificy Marydel,Urine 1.026 Normal 1.001-1.030 [facility] Comment on above: Order Comment: Name Collection Type:: Santana Catheter Performed By: #### C UU, ADDONUAPLUS ####[address] [address] [facility] Squamous Epithelial Cell,Urine None Seen Normal 0-2 [facility] Comment on above: Order Comment: Name Collection Type:: Santana Catheter Performed By: #### C UU, ADDONUAPLUS ####[address] Urobilinogen,Urine Normal Normal Normal [facility] Comment on above: Order Comment: Name Collection Type:: Santana Catheter Performed By: #### C UU, ADDONUAPLUS ####[address] Waxy Casts,Urine 1-2 High None Seen [facility] Comment on above: Order Comment: Name Collection Type:: Santana Catheter Performed By: #### C UU, ADDONUAPLUS ####[address] WBC,Urine 50-100 High 0-4 [facility] Comment on above: Order Comment: Name Collection Type:: Santana Catheter Performed By: #### C UU, ADDONUAPLUS ####[address] Yeast,Urine None Seen Normal None Seen [facility] Comment on above: Order Comment: Name Collection Type:: Santana Catheter Result Comment: PERF ORMED BY:[address] [place], [place] [phone] MEDICAL SILVIA GARCIA M.D. Performed By: #### C UU, ADDONUAPLUS ####[address] Erythrocyte distribution wid th [Ratio] by Automated countOrdered By: Geo Thomas on 08-21-2023 Erythrocyte distribution width (RBC) [Ratio] 17.3 % High 12.0-14.8 [facility] Comment on above: Order Comment: DRAW LAST PER RN EMMANUEL Performed By: #### F ER, CBC, BMP, FE and TIBC ####[address] Erythrocytes [#/volume] in B lood by Automated countOrdered By: Geo Thomas on 08-21-2023 RBC (Bld) [#/Vol] 3.17 10*6/uL Low 3.90-5.60 [facility] Comment on above: Order Comment: DRAW LAST PER HONORIO BENITEZ Performed By: #### F ER, CBC, BMP, FE and TIBC ####[address] [address] [facility] Ferritin [Mass/volume] in Se rum or PlasmaOrdered By: Mehul Garrett on 08-21-2023 Ferritin [Mass/Vol] 938.1 ng/mL High 23.9-336.2 [facility] Comment on above: Order Comment: DRAW LAST PER HONORIO BENITEZ Result Comment: PERF ORMED BY:[address] [address] [address] [place], [place] [phone] MEDICAL DIRECTORJOSEPH GARCIA M.D. Performed By: #### F ER, CBC, BMP, FE and TIBC ####[address] [address] [facility] Glucose Poct Glucometerson 0 08-21-2023 Glucose [Mass/Vol] 172 mg/dL Normal [facility] Comment on above: Result Comment: [facility] Glucose Reference Range is dependent on time and content of last meal. Glucose of more than 200 mg/dL in a nonstressed, ambulatory subject supports the diagnosis of Diabetes Mellitus.PERFORMED BY:[address] [address] [address] [place], [place] [phone] MEDICAL DIRECTORJOSEPH GARCIA M.D. Performed By: #### G LULS ####Point of Care testing, Glucose [Mass/Vol] 117 mg/dL Normal [facility] Comment on above: Result Comment: [facility] Glucose Reference Range is dependent on time and content of last meal. Glucose of more than 200 mg/dL in a nonstressed, ambulatory subject supports the diagnosis of Diabetes Mellitus.PERFORMED BY:[address] [place], [place] [phone] MEDICAL DIRECTORJIANLAN SUN M.D. Performed By: #### G LULS ####Point of Care testing, Glucose [Mass/Vol] 153 mg/dL Normal [facility] Comment on above: Result Comment: [place] [facility] Glucose Reference Range is dependent on time and content of last meal. Glucose of more than 200 mg/dL in a nonstressed, ambulatory subject supports the diagnosis of Diabetes Mellitus.PERFORMED BY:[address] [address] [address] [place] [place], [place] [phone] MEDICAL DIRECTORJOSEPH GARCIA M.D. Performed By: #### G LULS ####Point of Care testing, Commemt1 Glu2: Cleaned Meter Normal [facility] Comment on above: Result Comment: PERF ORMED BY:[address] [place], [place] [phone] MEDICAL DIRECTORJOSEPH GARCIA M.D. Performed By: #### G LULS ####Point of Care testing, Glucose [Mass/Vol] 152 mg/dL Normal [facility] Comment on above: Result Comment: [facility] Glucose Reference Range is dependent on time and content of last meal. Glucose of more than 200 mg/dL in a nonstressed, ambulatory subject supports the diagnosis of Diabetes Mellitus. Performed By: #### G LULS ####Point of Care testing, Hematocrit [Volume Fraction] of Blood by Automated countOrdered By: Geo Thomas on 08-21-2023 Hematocrit (Bld) [Volume fraction] 28.3 % Low 38.8-50.0 [facility] Comment on above: Order Comment: DRAW LAST PER RN EMMANUEL Performed By: #### F ER, CBC, BMP, FE and TIBC ####[address] [address] [facility] Hemoglobin [Mass/volume] in BloodOrdered By: Geo Thomas on 08-21-2023 Hemoglobin (Bld) [Mass/Vol] 9.4 g/dL Low 13.0-17.0 [facility] Comment on above: Order Comment: DRAW LAST PER RN EMMANUEL Performed By: #### F ER, CBC, BMP, FE and TIBC ####[id number] [facility] Iron [Mass/volume] in Serum or PlasmaOrdered By: Mehul Garrett on 08-21-2023 Iron [Mass/Vol] 22 ug/dL Low 50-212 [facility] Comment on above: Order Comment: DRAW LAST PER RN EMMANUEL Performed By: #### F ER, CBC, BMP, FE and TIBC ####[address] [place] [id number] [facility] Iron and TIBC Profileon 07-25 8 % Iron Saturation 12.3 % Low 20-50 The [facility] Comment on above: Order Comment: DRAW LAST PER RN EMMANUEL Performed By: #### F ER, CBC, BMP, FE and TIBC ####[address] [place] [id number] [facility] Total Iron Binding Capacity 179 ug/dL Low 255-450 [facility] Comment on above: Order Comment: DRAW LAST PER RN EMMANUEL Performed By: #### F ER, CBC, BMP, FE and TIBC ####[place] [id number] [facility] Iron binding capacity [Mass/ volume] in Serum or PlasmaOrdered By: Mehul Garrett on 08-21-2023 Iron binding capacity [Mass/Vol] 179 ug/dL 255-450 [facility] Iron saturation [Mass Fracti on] in Serum or PlasmaOrdered By: Mehul Garrett on 08-21-2023 Iron saturation [Mass fraction] 12.3 % 20-50 [facility] Ketones Auto test strip (U) [Mass/Vol]Ordered By: Sury Winkler on 08-21-2023 Ketones (U) [Mass/Vol] Trace Negative [facility] Leukocytes [#/volume] correc jewel for nucleated erythrocytes in Blood by Automated counOrdered By: Geo Thomas on 08-21-2023 WBC corrected for nucl RBC Auto (Bld) [#/Vol] 15.3 10*3/uL 4.1-10.5 [facility] Leukocytes [#/volume] in Blo od by Automated countOrdered By: Geo Thomas on 08-21-2023 WBC (Bld) [#/Vol] 15.3 10*3/uL High 4.1-10.5 [facility] Comment on above: Order Comment: DRAW LAST PER RN EMMANUEL Performed By: #### F ER, CBC, BMP, FE and TIBC ####[address] Lymphocytes [#/volume] in Bl ood by Automated countOrdered By: Geo Thomas on 08-21-2023 Lymphocytes (Bld) [#/Vol] 1.8 10*3/uL Normal 1.00-4.8 [facility] Comment on above: Order Comment: DRAW LAST PER RN EMMANUEL Performed By: #### F ER, CBC, BMP, FE and TIBC ####[address] Lymphocytes/100 leukocytes i n Blood by Automated countOrdered By: Geo Thomas on 08-21-2023 Lymphocytes/100 WBC (Bld) 11.5 % Normal . [facility] Comment on above: Order Comment: DRAW LAST PER RN EMMANUEL Performed By: #### F ER, CBC, BMP, FE and TIBC ####[place] [id number] [facility] MCH [Entitic mass] by Automa jewel countOrdered By: Geo Thomas on 08-21-2023 MCH (RBC) [Entitic mass] 29.6 pg Normal 27.5-35.2 [facility] Comment on above: Order Comment: DRAW LAST PER RN EMMANUEL Performed By: #### F ER, CBC, BMP, FE and TIBC ####[place] [id number] [facility] MCHC Auto (RBC) [Mass/Vol]Or dered By: Geo Thomas on 08-21-2023 MCHC (RBC) [Mass/Vol] 33.2 g/dL 32.5-35.6 [facility] MCV [Entitic volume] by Auto mated countOrdered By: Geo Thomas on 08-21-2023 MCV (RBC) [Entitic vol] 89.1 fL Normal 83.5-101 [facility] Comment on above: Order Comment: DRAW LAST PER RN EMMANUEL Performed By: #### F ER, CBC, BMP, FE and TIBC ####[facility] [id number] Monocytes Auto (Bld) [#/Vol] Ordered By: Geo Thomas on 08-21-2023 Monocytes (Bld) [#/Vol] See comment 0.0-0.8 [facility] Comment on above: Absolute monocytosis is commonly reactive in nature. However, if unexplained, recommend follow-up CBC in 3 months to evaluate for persistence. Neutrophils [#/volume] in Bl ood by Automated countOrdered By: Geo Thomas on 08-21-2023 Neutrophils (Bld) [#/Vol] 10.7 10*3/uL High 1.8-7.7 [facility] Comment on above: Order Comment: DRAW LAST PER RN EMMANUEL Performed By: #### F ER, CBC, BMP, FE and TIBC ####[facility] [id number] Nitrite Test strip Ql (U)Ord ered By: Sury Winkler on 08-21-2023 Nitrite Ql (U) Positive Negative [facility] Nucleated erythrocytes [Pres ence] in Blood by Automated countOrdered By: Geo Thomas on 08-21-2023 Nucleated RBC Auto Ql (Bld) 0.0 /100{WBC} 0-0.5 [facility] Platelet mean volume [Entiti c volume] in Blood by Automated countOrdered By: Geo Thomas on 08-21-2023 Platelet mean volume (Bld) [Entitic vol] 7.6 fL Normal 6.6-10.1 [facility] Comment on above: Order Comment: DRAW LAST PER RN EMMANUEL Performed By: #### F ER, CBC, BMP, FE and TIBC ####[address] [place] [id number] [facility] Platelets [#/volume] in Bloo d by Automated countOrdered By: Geo Thomas on 08-21-2023 Platelets (Bld) [#/Vol] 740 10*3/uL High 150-450 [facility] Comment on above: Order Comment: DRAW LAST PER RN EMMANUEL Performed By: #### F ER, CBC, BMP, FE and TIBC ####[address] [place] [id number] [facility] Specific gravity Auto test s trip (U) [Rel density]Ordered By: Sury Winkler on 08-21-2023 Specific gravity (U) [Rel density] 1.026 1.001-1.030 [facility] Squamous epithelial cells de tection in urine sediment by light microscopyOrdered By: Sury Winkler on 08-21-2023 Epithelial cells.squamous LM Ql (Urine sed) None seen [HPF] 0-2 [facility] Transferrin [Mass/volume] in Serum or PlasmaOrdered By: Mehul Garrett on 08-21-2023 Transferrin [Mass/Vol] 128 mg/dL Low 203-362 [facility] Comment on above: Order Comment: DRAW LAST PER RN EMMANUEL Performed By: #### F ER, CBC, BMP, FE and TIBC ####[address] [place] [id number] [facility] Urine Cultureon 08-21-2023 Bacteria identified Cx Nom (U) Normal [facility] Comment on above: Performed By: #### C UU, ADDONUAPLUS ####[place] [id number] [facility] Urine bacteria detection by automated methodOrdered By: Sury Winkler on 08-21-2023 Bacteria Auto Ql (U) 4+ None Seen [facility] Urine clarity by refractomet ry automatedOrdered By: Sury Winkler on 08-21-2023 Clarity Refractometry automated (U) Turbid Clear [facility] Urine culture routineOrdered By: Sury Winkler on 08-21-2023 Bacteria identified Cx Nom (U) Klebsiella pneumoniae (CRE) [facility] Urine glucose measurement by automated test strip (mass/volume)Ordered By: Sury Winkler on 08-21-2023 Glucose Auto test strip (U) [Mass/Vol] Normal mg/dL Normal [facility] Urine hemoglobin detection b y automated test stripOrdered By: Sury Winkler on 08-21-2023 Hemoglobin Auto test strip Ql (U) 2+ Negative [facility] Urine leukocyte esterase det ection by automated test stripOrdered By: Sury Winkler on 08-21-2023 Leukocyte esterase Auto test strip Ql (U) 3+ Negative [facility] Urine pH measurement by auto mated test stripOrdered By: Sury Winkler on 08-21-2023 pH (U) 5.0 [pH] Normal 5.0-9.0 [facility] Comment on above: Order Comment: Name Collection Type:: Santana Catheter Performed By: #### C UU, ADDONUAPLUS ####[facility] [id number] Urine protein measurement by automated test strip (mass/volume)Ordered By: Sury Winkler on 08-21-2023 Protein (U) [Mass/Vol] 30 mg/dL High Negative [facility] Comment on above: Order Comment: Name Collection Type:: Santana Catheter Performed By: #### C UU, ADDONUAPLUS ####[facility] [id number] [address] Urine sediment waxy cast cou nt by microscopy (number/low power field)Ordered By: Sury Winkler on 08-21-2023 Waxy casts LM.LPF (Urine sed) [#/Area] 1-2 [LPF] None Seen [facility] Urobilinogen Auto test strip (U) [Mass/Vol]Ordered By: Sury Winkler on 08-21-2023 Urobilinogen (U) [Mass/Vol] Normal mg/dL Normal [facility] Yeast detection in urine sed iment by light microscopyOrdered By: Sury Winkler on 08-21-2023 Yeast LM Ql (Urine sed) None seen [HPF] None Seen [facility] Basic Metabolic Panelon 07-25 Anion gap [Moles/Vol] 8.7 mmol/L Normal 6.0-15.0 [facility] Comment on above: Performed By: #### B STARLA, CBC ####[place] [id number] [facility] Calcium [Mass/Vol] 8.6 mg/dL Normal 8.6-10.3 [facility] Comment on above: Performed By: #### B MP, CBC ####[address] Chloride [Moles/Vol] 97 mmol/L Low 98-107 [facility] Comment on above: Performed By: #### B STARLA, CBC ####[address] CO2 [Moles/Vol] 28.0 mmol/L Normal 21.0-31.0 [facility] Comment on above: Performed By: #### B STARLA, CBC ####[place] [id number] [facility] Creatinine [Mass/Vol] 2.49 mg/dL High 0.70-1.30 [facility] Comment on above: Performed By: #### B STARLA, CBC ####[address] Creatinine Clr Calc Pharmacy 28.82 Normal [facility] Comment on above: Result Comment: PERF ORMED BY:[address] [place], [place] [phone] MEDICAL SILVIA GARCIA M.D. Performed By: #### B MP, CBC ####[place] [id number] [facility] GFR/1.73 sq M.predicted MDRD (S/P/Bld) [Vol rate/Area] 26.926 mL/min/{1.73_m2} Normal [facility] Comment on above: Performed By: #### B MP, CBC ####[place] [id number] [facility] Glucose [Mass/Vol] 167 mg/dL Significant change up 70-100 [facility] Comment on above: Result Comment: [place] Glucose Reference Range is dependent on time and content of last meal. Glucose of more than 200 mg/dL in a nonstressed, ambulatory subject supports the diagnosis of Diabetes Mellitus. ADA recommended reference range Performed By: #### B MP, CBC ####[address] Potassium [Moles/Vol] 3.7 mmol/L Normal 3.5-5.1 [facility] Comment on above: Performed By: #### B MP, CBC ####[address] Sodium [Moles/Vol] 130 mmol/L Low 136-145 [facility] Comment on above: Performed By: #### B MP, CBC ####[place] [id number] [facility] Urea nitrogen [Mass/Vol] 69 mg/dL High 7-25 [facility] Comment on above: Performed By: #### B MP, CBC ####[place] [id number] [facility] Complete Blood Count Auto Di ffon 08-20-2023 Basophils (Bld) [#/Vol] 0.1 10*3/uL Normal 0.0-0.2 [facility] Comment on above: Result Comment: PERF ORMED BY:[address] [place], [place] [phone] MEDICAL DIRECTORJOSEPH GARCIA M.D. Performed By: #### B MP, CBC ####[place] [id number] [facility] Basophils/100 WBC (Bld) 1.0 % Normal . [facility] Comment on above: Performed By: #### B MP, CBC ####[place] [id number] [facility] Eosinophils (Bld) [#/Vol] 0.2 10*3/uL Normal 0.0-0.45 [facility] Comment on above: Performed By: #### B MP, CBC ####[address] Eosinophils/100 WBC (Bld) 1.5 % Normal . [facility] Comment on above: Performed By: #### B MP, CBC ####[address] Erythrocyte distribution width (RBC) [Ratio] 17.7 % High 12.0-14.8 [facility] Comment on above: Performed By: #### B MP, CBC ####[address] Hematocrit (Bld) [Volume fraction] 28.1 % Low 38.8-50.0 [facility] Comment on above: Performed By: #### B MP, CBC ####[address] Hemoglobin (Bld) [Mass/Vol] 9.4 g/dL Low 13.0-17.0 [facility] Comment on above: Performed By: #### B MP, CBC ####[address] Lymphocytes (Bld) [#/Vol] 2.0 10*3/uL Normal 1.00-4.8 [facility] Comment on above: Performed By: #### B MP, CBC ####[place] [id number] [facility] Lymphocytes/100 WBC (Bld) 16.1 % Normal . [facility] Comment on above: Performed By: #### B MP, CBC ####[place] [id number] [facility] MCH (RBC) [Entitic mass] 29.9 pg Normal 27.5-35.2 [facility] Comment on above: Performed By: #### B MP, CBC ####[place] [id number] [facility] MCV (RBC) [Entitic vol] 88.9 fL Normal 83.5-101 [facility] Comment on above: Performed By: #### B MP, CBC ####[place] [id number] [facility] Mean Corpuscular HGB Conc 33.6 g/dL Normal 32.5-35.6 [facility] Comment on above: Performed By: #### B MP, CBC ####[address] Monocytes (Bld) [#/Vol] 2.0 10*3/uL High 0.0-0.8 [facility] Comment on above: Performed By: #### B MP, CBC ####[address] Monocytes/100 WBC (Bld) 15.9 % Normal . [facility] Comment on above: Result Comment: Abso lute monocytosis is commonly reactive in nature. However, if unexplained, recommend follow-up CBC in 3 months to evaluate for persistence. Performed By: #### B MP, CBC ####[address] Neutrophils (Bld) [#/Vol] 8.2 10*3/uL High 1.8-7.7 [facility] Comment on above: Performed By: #### B MP, CBC ####[address] Neutrophils/100 WBC (Bld) 65.5 % Normal . [facility] Comment on above: Performed By: #### B MP, CBC ####[address] NRBC% 0.1 /100{WBC} Normal 0-0.5 [facility] Comment on above: Performed By: #### B MP, CBC ####[place] [id number] [facility] Platelet mean volume (Bld) [Entitic vol] 7.5 fL Normal 6.6-10.1 [facility] Comment on above: Performed By: #### B MP, CBC ####[place] [id number] [facility] Platelets (Bld) [#/Vol] 781 10*3/uL High 150-450 [facility] Comment on above: Performed By: #### B MP, CBC ####[place] [id number] [facility] RBC (Bld) [#/Vol] 3.16 10*6/uL Low 3.90-5.60 [facility] Comment on above: Performed By: #### B MP, CBC ####[place] [id number] [facility] WBC (Bld) [#/Vol] 12.5 10*3/uL High 4.1-10.5 [facility] Comment on above: Performed By: #### B MP, CBC ####[place] [id number] [facility] Glucose Poct Glucometerson 0 08-20-2023 Commemt1 Glu2: Cleaned Meter Normal [facility] Comment on above: Result Comment: PERF ORMED BY:[address] [place], [place] [phone] MEDICAL DIRECTORJOSEPH GARCIA M.D. Performed By: #### G LULS ####Point of Care testing, Glucose [Mass/Vol] 174 mg/dL Normal [facility] Comment on above: Result Comment: [place] Glucose Reference Range is dependent on time and content of last meal. Glucose of more than 200 mg/dL in a nonstressed, ambulatory subject supports the diagnosis of Diabetes Mellitus. Performed By: #### G LULS ####Point of Care testing, Commemt1 Glu2: Cleaned Meter Normal [facility] Comment on above: Result Comment: PERF ORMED BY:[address] [place] [place], [place] [phone] MEDICAL DIRECTORJOSEPH GARCIA M.D. Performed By: #### G LULS ####Point of Care testing, Glucose [Mass/Vol] 202 mg/dL Normal [facility] Comment on above: Result Comment: [place] Glucose Reference Range is dependent on time and content of last meal. Glucose of more than 200 mg/dL in a nonstressed, ambulatory subject supports the diagnosis of Diabetes Mellitus. Performed By: #### G LULS ####Point of Care testing, Commemt1 Glu2: Cleaned Meter Normal [facility] Comment on above: Result Comment: PERF ORMED BY:[place] [address] [address]IV[address] LOYATracyLUZ [place], [place] [phone] MEDICAL DIRECTORJOSEPH GARCIA M.D. Performed By: #### G LULS ####Point of Care testing, Glucose [Mass/Vol] 140 mg/dL Normal [facility] Comment on above: Result Comment: [place] om Glucose Reference Range is dependent on time and content of last meal. Glucose of more than 200 mg/dL in a nonstressed, ambulatory subject supports the diagnosis of Diabetes Mellitus. Performed By: #### G LULS ####Point of Care testing, Commemt1 Glu2: Cleaned Meter Normal [facility] Comment on above: Result Comment: PERF ORMED BY:[address] [place], [place] [phone] MEDICAL DIRECTORJOSEPH GARCIA M.D. Performed By: #### G LULS ####Point of Care testing, Glucose [Mass/Vol] 152 mg/dL Normal [facility] Comment on above: Result Comment: [place] om Glucose Reference Range is dependent on time and content of last meal. Glucose of more than 200 mg/dL in a nonstressed, ambulatory subject supports the diagnosis of Diabetes Mellitus. Performed By: #### G LULS ####Point of Care testing, Commemt1 Glu2: Cleaned Meter Normal [facility] Comment on above: Result Comment: PERF ORMED BY:[address] SHALINITracyLUZ [place], [place] [phone] MEDICAL DIRECTORJOSEPH GARCIA M.D. Performed By: #### G LULS ####Point of Care testing, Glucose [Mass/Vol] 176 mg/dL Normal [facility] Comment on above: Result Comment: [place] om Glucose Reference Range is dependent on time and content of last meal. Glucose of more than 200 mg/dL in a nonstressed, ambulatory subject supports the diagnosis of Diabetes Mellitus. Performed By: #### G LULS ####Point of Care testing, Arterial Blood Gason 024 ABG Base Excess 4.5 mmol/L High -3.0-3.0 [facility] Comment on above: Performed By: #### A BG ####Point of Care testing, ABG Frac Inspired O2 30 % Normal [facility] Comment on above: Performed By: #### A BG ####Point of Care testing, ABG Oxygen Content 6.1 mmol/L Low 6.6-9.7 [facility] Comment on above: Performed By: #### A BG ####Point of Care testing, ABG Oxygen Saturation 97.9 % Normal 95.0-100.0 [facility] Comment on above: Performed By: #### A BG ####Point of Care testing, ABG PCO2 31.8 mm[Hg] Low 35.0-45.0 [facility] Comment on above: Performed By: #### A BG ####Point of Care testing, ABG PEEP 5 Normal [facility] Comment on above: Performed By: #### A BG ####Point of Care testing, ABG PH 7.54 High 7.35-7.45 [facility] Comment on above: Performed By: #### A BG ####Point of Care testing, ABG PO2 105.4 mm[Hg] High 80.0-100.0 [facility] Comment on above: Performed By: #### A BG ####Point of Care testing, ABG TV 450 mL Normal [facility] Comment on above: Performed By: #### A BG ####Point of Care testing, Respiratory Critical Normal [facility] Comment on above: Result Comment: Crit ical Value called on: 08/19/2023 at 04:20PERFORMED BY:[id number] SHIVA NUÑE[place]BOYLST[place], [place] [phone] MEDICAL DIRECTORJOSEPH GARCIA M.D. Performed By: #### A BG ####Point of Care testing, Set Respiratory Rate 14 Normal [facility] Comment on above: Performed By: #### A BG ####Point of Care testing, VBG Draw Site Left Radial Normal [facility] Comment on above: Performed By: #### A BG ####Point of Care testing, Ventilator Mode AC Normal [facility] Comment on above: Performed By: #### A BG ####Point of Care testing, Arterial Blood GasOrdered By : Arnalod Thomas on 08-19-2023 CO2 [Moles/Vol] 27.8 mmol/L High 23.0-27.0 [facility] Comment on above: Performed By: #### A BG ####Point of Care testing, HCO3 (Bld) [Moles/Vol] 26.8 mmol/L Normal 23.0-29.0 [facility] Comment on above: Performed By: #### A BG ####Point of Care testing, Basic Metabolic Panelon 07-25 Anion gap [Moles/Vol] 8.0 mmol/L Normal 6.0-15.0 [facility] Comment on above: Performed By: #### C BC, BMP ####[place] [address] [place] [id number] [facility] Calcium [Mass/Vol] 8.3 mg/dL Low 8.6-10.3 [facility] Comment on above: Performed By: #### C BC, BMP ####[place] [id number] [facility] Chloride [Moles/Vol] 99 mmol/L Normal 98-107 [facility] Comment on above: Performed By: #### C BC, BMP ####[address] [address] [place] [address] [facility] CO2 [Moles/Vol] 29.6 mmol/L Normal 21.0-31.0 [facility] Comment on above: Performed By: #### C BC, BMP ####[address] [address] [facility] Creatinine [Mass/Vol] 2.23 mg/dL Significan t change up 0.70-1.30 [facility] Comment on above: Performed By: #### C BC, BMP ####[place] [address] [place] [id number] [facility] Creatinine Clr Calc Pharmacy 32.49 Normal [facility] Comment on above: Result Comment: PERF ORMED BY:[address] LATamikoTracyLUZ [place], [place] [phone] MEDICAL SILVIA GARCIA M.D. Performed By: #### C BC, BMP ####[place] [id number] [facility] GFR/1.73 sq M.predicted MDRD (S/P/Bld) [Vol rate/Area] 30.736 mL/min/{1.73_m2} Normal [facility] Comment on above: Performed By: #### C BC, BMP ####[address] Glucose [Mass/Vol] 67 mg/dL Significant change down 70-100 [facility] Comment on above: Result Comment: [facility] Glucose Reference Range is dependent on time and content of last meal. Glucose of more than 200 mg/dL in a nonstressed, ambulatory subject supports the diagnosis of Diabetes Mellitus. ADA recommended reference range Performed By: #### C BC, BMP ####[place] [id number] [facility] Potassium [Moles/Vol] 3.6 mmol/L Normal 3.5-5.1 [facility] Comment on above: Performed By: #### C BC, BMP ####[place] [id number] [facility] Sodium [Moles/Vol] 133 mmol/L Low 136-145 [facility] Comment on above: Performed By: #### C BC, BMP ####[place] [address] [place] [id number] [facility] Urea nitrogen [Mass/Vol] 48 mg/dL Significant change up 7-25 [facility] Comment on above: Performed By: #### C BC, BMP ####[address] [address] [facility] Complete Blood Count Auto Di ffon 08-19-2023 Basophils (Bld) [#/Vol] 0.1 10*3/uL Normal 0.0-0.2 [facility] Comment on above: Result Comment: PERF ORMED BY:[address] [place], [place] [phone] MEDICAL DIRECTORJOSEPH GARCIA M.D. Performed By: #### C BC, BMP ####[address] [address] [facility] Basophils/100 WBC (Bld) 1.1 % Normal . [facility] Comment on above: Performed By: #### C BC, BMP ####[address] [address] [facility] Eosinophils (Bld) [#/Vol] 0.1 10*3/uL Normal 0.0-0.45 [facility] Comment on above: Performed By: #### C HIGINIO, BMP ####[address] [address] [facility] Eosinophils/100 WBC (Bld) 1.2 % Normal . [facility] Comment on above: Performed By: #### C BC, BMP ####[address] [address] [facility] Erythrocyte distribution width (RBC) [Ratio] 17.3 % High 12.0-14.8 [facility] Comment on above: Performed By: #### C BC, BMP ####[address] [address] [facility] Hematocrit (Bld) [Volume fraction] 27.2 % Low 38.8-50.0 [facility] Comment on above: Performed By: #### C BC, BMP ####[address] [address] [facility] Hemoglobin (Bld) [Mass/Vol] 9.3 g/dL Low 13.0-17.0 [facility] Comment on above: Performed By: #### C BC, BMP ####[address] [address] [facility] Lymphocytes (Bld) [#/Vol] 2.0 10*3/uL Normal 1.00-4.8 [facility] Comment on above: Performed By: #### C BC, BMP ####[address] [address] [facility] Lymphocytes/100 WBC (Bld) 16.7 % Normal . [facility] Comment on above: Performed By: #### C BC, BMP ####[place] [id number] [facility] MCH (RBC) [Entitic mass] 30.3 pg Normal 27.5-35.2 [facility] Comment on above: Performed By: #### C BC, BMP ####[place] [id number] [facility] MCV (RBC) [Entitic vol] 88.4 fL Normal 83.5-101 [facility] Comment on above: Performed By: #### C BC, BMP ####[place] [id number] [facility] Mean Corpuscular HGB Conc 34.3 g/dL Normal 32.5-35.6 [facility] Comment on above: Performed By: #### C BC, BMP ####[place] [id number] [facility] Monocytes (Bld) [#/Vol] 2.0 10*3/uL High 0.0-0.8 [facility] Comment on above: Performed By: #### C BC, BMP ####[place] [id number] [facility] Monocytes/100 WBC (Bld) 16.2 % Normal . [facility] Comment on above: Performed By: #### C BC, BMP ####[place] [id number] [facility] Neutrophils (Bld) [#/Vol] 7.8 10*3/uL High 1.8-7.7 [facility] Comment on above: Performed By: #### C BC, BMP ####[address] [address] [facility] Neutrophils/100 WBC (Bld) 64.8 % Normal . [facility] Comment on above: Performed By: #### C BC, BMP ####[address] [address] [facility] NRBC% 0.1 /100{WBC} Normal 0-0.5 [facility] Comment on above: Performed By: #### C BC, BMP ####[address] [address] [facility] Platelet mean volume (Bld) [Entitic vol] 7.2 fL Normal 6.6-10.1 [facility] Comment on above: Performed By: #### C BC, BMP ####[address] [address] [facility] Platelets (Bld) [#/Vol] 737 10*3/uL High 150-450 [facility] Comment on above: Performed By: #### C BC, BMP ####[address] [address] [facility] RBC (Bld) [#/Vol] 3.07 10*6/uL Low 3.90-5.60 [facility] Comment on above: Performed By: #### C BC, BMP ####[address] [address] [facility] WBC (Bld) [#/Vol] 12.1 10*3/uL High 4.1-10.5 [facility] Comment on above: Performed By: #### C BC, BMP ####[address] [address] [facility] Glucose Poct Glucometerson 0 08-19-2023 Commemt1 Glu2: Cleaned Meter Normal [facility] Comment on above: Result Comment: PERF ORMED BY:[address] [place], [place] [phone] MEDICAL DIRECTORJOSEPH GARCIA M.D. Performed By: #### G LULS ####Point of Care testing, Glucose [Mass/Vol] 135 mg/dL Normal [facility] Comment on above: Result Comment: [place] om Glucose Reference Range is dependent on time and content of last meal. Glucose of more than 200 mg/dL in a nonstressed, ambulatory subject supports the diagnosis of Diabetes Mellitus. Performed By: #### G LULS ####Point of Care testing, Commemt1 Glu2: Cleaned Meter Normal [facility] Comment on above: Result Comment: PERF ORMED BY:[address] [address] [address] [place], [place] [phone] MEDICAL DIRECTORJOSEPH GARCIA M.D. Performed By: #### G LULS ####Point of Care testing, Glucose [Mass/Vol] 108 mg/dL Normal [facility] Comment on above: Result Comment: [place] om Glucose Reference Range is dependent on time and content of last meal. Glucose of more than 200 mg/dL in a nonstressed, ambulatory subject supports the diagnosis of Diabetes Mellitus. Performed By: #### G LULS ####Point of Care testing, Commemt1 Glu2: Cleaned Meter Normal [facility] Comment on above: Result Comment: PERF ORMED BY:[address] [address] [address] [place] [place], [place] [phone] MEDICAL SILVIA GARCIA M.D. Performed By: #### G LULS ####Point of Care testing, Glucose [Mass/Vol] 87 mg/dL Normal [facility] Comment on above: Result Comment: [place] om Glucose Reference Range is dependent on time and content of last meal. Glucose of more than 200 mg/dL in a nonstressed, ambulatory subject supports the diagnosis of Diabetes Mellitus. Performed By: #### G LULS ####Point of Care testing, Commemt1 Glu2: Cleaned Meter Normal [facility] Comment on above: Result Comment: PERF ORMED BY:[address] [address] [place] [place]HBO[place], [place] [phone] MEDICAL DIRECTORJOSEPH GARCIA M.D. Performed By: #### G LULS ####Point of Care testing, Glucose [Mass/Vol] 105 mg/dL Normal [facility] Comment on above: Result Comment: [place] om Glucose Reference Range is dependent on time and content of last meal. Glucose of more than 200 mg/dL in a nonstressed, ambulatory subject supports the diagnosis of Diabetes Mellitus. Performed By: #### G LULS ####Point of Care testing, Commemt1 Glu2: Cleaned Meter Normal [facility] Comment on above: Result Comment: PERF ORMED BY:[address] [address] [address] AM[place], [place] [phone] MEDICAL DIRECTORJOSEPH GARCIA M.D. Performed By: #### G LULS ####Point of Care testing, Glucose [Mass/Vol] 165 mg/dL Normal [facility] Comment on above: Result Comment: [place] om Glucose Reference Range is dependent on time and content of last meal. Glucose of more than 200 mg/dL in a nonstressed, ambulatory subject supports the diagnosis of Diabetes Mellitus. Performed By: #### G LULS ####Point of Care testing, Commemt1 Glu2: Cleaned Meter Normal [facility] Comment on above: Result Comment: PERF ORMED BY:[address]YAT[address]LU[address] [place], [place] [phone] MEDICAL DIRECTORJOSEPH GARCIA M.D. Performed By: #### G LULS ####Point of Care testing, Glucose [Mass/Vol] 109 mg/dL Normal [facility] Comment on above: Result Comment: [place] om Glucose Reference Range is dependent on time and content of last meal. Glucose of more than 200 mg/dL in a nonstressed, ambulatory subject supports the diagnosis of Diabetes Mellitus. Performed By: #### G LULS ####Point of Care testing, No Panel InformationOrdered By: Arnaldo Thomas on 08-19-2023 Arterial Blood Base Excess 4.5 mmol/L -3.0-3.0 [facility] Arterial Blood Oxygen Content 6.1 mmol/L 6.6-9.7 [facility] Arterial Blood Oxygen Saturation 97.9 % 95.0-100.0 [facility] Arterial Blood Partial Pressure CO2 31.8 mm[Hg] 35.0-45.0 [facility] Arterial Blood Partial Pressure O2 105.4 mm[Hg] 80.0-100.0 [facility] Arterial Blood pH 7.54 7.35-7.45 [facility] Blood Gas Critical Value See comment [facility] Comment on above: Critical Value milian d on: 08/19/2023 at 04:20 Blood Gas PEEP 5 cmH2O [facility] Blood Gas Sample Site Left radial [facility] Blood Gas Set Respiration Rate 14 [facility] Blood Gas Tidal Volume 450 mL [facility] Blood Gas Ventilator Mode [facility] FiO2 30 % [facility] 7.54 7.35-7.45 [facility] 31.8 mm[Hg] 35.0-45.0 [facility] 105.4 mm[Hg] 80.0-100.0 [facility] 26.8 mmol/L 23.0-29.0 [facility] 4.5 mmol/L -3.0-3.0 [facility] 97.9 % 95.0-100.0 [facility] 6.1 mmol/L 6.6-9.7 [facility] 27.8 mmol/L 23.0-27.0 [facility] 30 % [facility] 450 mL [facility] 5 cmH2O [facility] Left radial [facility] Ac [facility] 14 [facility] See comment [facility] Anisocytosis [Presence] in B lood by Light microscopyOrdered By: Geo Thomas on 08-18-2023 Anisocytosis Ql (Bld) Moderate Normal [facility] Comment on above: Performed By: #### S CAN CBC, BMP ####[facility] [address] [place] [address] [facility] Basic Metabolic Panelon 07-25 Anion gap [Moles/Vol] 10.7 mmol/L Normal 6.0-15.0 [facility] Comment on above: Performed By: #### S CAN CBC, BMP ####[place] [address] [place] [address] [facility] Calcium [Mass/Vol] 8.6 mg/dL Normal 8.6-10.3 [facility] Comment on above: Performed By: #### S CAN CBC, BMP ####[place] [address] [place] [address] [place] Chloride [Moles/Vol] 98 mmol/L Normal 98-107 [facility] Comment on above: Performed By: #### S CAN CBC, BMP ####[place] [address] [place] [address] [place] CO2 [Moles/Vol] 26.8 mmol/L Normal 21.0-31.0 [facility] Comment on above: Performed By: #### S CAN CBC, BMP ####[place] [address] [place] [address] [place] Creatinine [Mass/Vol] 2.95 mg/dL High 0.70-1.30 [facility] Comment on above: Performed By: #### S CAN CBC, BMP ####[place] [address] [place] [address] [place] Creatinine Clr Calc Pharmacy 24.59 Normal [facility] Comment on above: Result Comment: PERF ORMED BY:[address] LATamikoTracyLUZ [place], [place] [phone] MEDICAL SILVIA GARCIA M.D. Performed By: #### S CAN CBC, BMP ####[address] [address] [place] GFR/1.73 sq M.predicted MDRD (S/P/Bld) [Vol rate/Area] 21.969 mL/min/{1.73_m2} Normal [facility] Comment on above: Performed By: #### S CAN CBC, BMP ####[place] [address] [place] [address] [facility] Glucose [Mass/Vol] 186 mg/dL High 70-100 [facility] Comment on above: Result Comment: [place] Glucose Reference Range is dependent on time and content of last meal. Glucose of more than 200 mg/dL in a nonstressed, ambulatory subject supports the diagnosis of Diabetes Mellitus. ADA recommended reference range Performed By: #### S CAN CBC, BMP ####[facility] [place] [address] [facility] Potassium [Moles/Vol] 3.5 mmol/L Normal 3.5-5.1 [facility] Comment on above: Performed By: #### S CAN CBC, BMP ####[facility] [place] [address] [facility] Sodium [Moles/Vol] 132 mmol/L Low 136-145 [facility] Comment on above: Performed By: #### S CAN CBC, BMP ####[facility] [place] [address] [facility] Urea nitrogen [Mass/Vol] 91 mg/dL High 7-25 [facility] Comment on above: Performed By: #### S CAN CBC, BMP ####[facility] [place] [address] [facility] Glucose Poct Glucometerson 0 08-18-2023 Commemt1 Glu2: Cleaned Meter Normal [facility] Comment on above: Result Comment: PERF ORMED BY:[address] [place], [place] [phone] MEDICAL DIRECTORJOSEPH GARCIA M.D. Performed By: #### G LUANURAG ####Point of Care testing, Glucose [Mass/Vol] 147 mg/dL Normal [facility] Comment on above: Result Comment: [place] Glucose Reference Range is dependent on time and content of last meal. Glucose of more than 200 mg/dL in a nonstressed, ambulatory subject supports the diagnosis of Diabetes Mellitus. Performed By: #### G LULS ####Point of Care testing, Glucose [Mass/Vol] 116 mg/dL Normal [facility] Comment on above: Result Comment: [place] Glucose Reference Range is dependent on time and content of last meal. Glucose of more than 200 mg/dL in a nonstressed, ambulatory subject supports the diagnosis of Diabetes Mellitus.PERFORMED BY:[address] [place] [address] [address] [place], [place] [phone] MEDICAL DIRECTORJOSEPH GARCIA M.D. Performed By: #### G VALERY ####Point of Care testing, Platelet adequacy [Presence] in Blood by Light microscopyOrdered By: Geo Thomas on 08-18-2023 Platelets LM Ql (Bld) Increased Normal [facility] Platelet morphology finding [Identifier] in BloodOrdered By: Geo Thomas on 08-18-2023 Platelet morphology finding Nom (Bld) Normal Normal [facility] Polychromasia [Presence] in Blood by Light microscopyOrdered By: Geo Thomas on 08-18-2023 Polychromasia LM Ql (Bld) Slight [facility] RBC morphologyOrdered By: Milton Thomas on 08-18-2023 RBC morphology finding Nom (Bld) N/A [facility] Scan and CBCon 08-18-2023 Basophils (Bld) [#/Vol] 0.2 10*3/uL Normal 0.0-0.2 [facility] Comment on above: Result Comment: PERF ORMED BY:[address] [address] [address] N[place], [place] [phone] MEDICAL DIRECTORJOSEPH GARCIA M.D. Performed By: #### S CAN CBC, BMP ####[address] [address] [place] Basophils/100 WBC (Bld) 0.8 % Normal . [facility] Comment on above: Performed By: #### S CAN CBC, BMP ####[address] [address] [place] Eosinophils (Bld) [#/Vol] 0.1 10*3/uL Normal 0.0-0.45 [facility] Comment on above: Performed By: #### S CAN CBC, BMP ####[address] [address] [place] Eosinophils/100 WBC (Bld) 0.4 % Normal . [facility] Comment on above: Performed By: #### S CAN CBC, BMP ####[address] Erythrocyte distribution width (RBC) [Ratio] 17.3 % High 12.0-14.8 [facility] Comment on above: Performed By: #### S CAN CBC, BMP ####[address] Hematocrit (Bld) [Volume fraction] 28.4 % Low 38.8-50.0 [facility] Comment on above: Performed By: #### S CAN CBC, BMP ####[address] Hemoglobin (Bld) [Mass/Vol] 9.7 g/dL Low 13.0-17.0 [facility] Comment on above: Performed By: #### S CAN CBC, BMP ####[address] Lymphocytes (Bld) [#/Vol] 1.9 10*3/uL Normal 1.00-4.8 [facility] Comment on above: Performed By: #### S CAN CBC, BMP ####[address] Lymphocytes/100 WBC (Bld) 9.6 % Normal . [facility] Comment on above: Performed By: #### S CAN CBC, BMP ####[address] MCH (RBC) [Entitic mass] 30.9 pg Normal 27.5-35.2 [facility] Comment on above: Performed By: #### S CAN CBC, BMP ####[address] [address] MCV (RBC) [Entitic vol] 90.2 fL Normal 83.5-101 [facility] Comment on above: Performed By: #### S CAN CBC, BMP ####[address] Mean Corpuscular HGB Conc 34.2 g/dL Normal 32.5-35.6 [facility] Comment on above: Performed By: #### S CAN CBC, BMP ####[place] [id number] [facility] Monocytes (Bld) [#/Vol] 2.2 10*3/uL High 0.0-0.8 [facility] Comment on above: Performed By: #### S CAN CBC, BMP ####[place] [id number] [facility] Monocytes/100 WBC (Bld) 11.0 % Normal . [facility] Comment on above: Performed By: #### S CAN CBC, BMP ####[place] [id number] [facility] Neutrophils (Bld) [#/Vol] 15.3 10*3/uL High 1.8-7.7 [facility] Comment on above: Performed By: #### S CAN CBC, BMP ####[place] [id number] [facility] Neutrophils/100 WBC (Bld) 78.2 % Normal . [facility] Comment on above: Performed By: #### S CAN CBC, BMP ####[place] [id number] [facility] NRBC% 0.0 /100{WBC} Normal 0-0.5 The [facility] Comment on above: Performed By: #### S CAN CBC, BMP ####[place] [id number] [facility] Platelet Estimate Increased Normal Normal The [facility] Comment on above: Performed By: #### S CAN CBC, BMP ####[place] [id number] [facility] Platelet mean volume (Bld) [Entitic vol] 7.3 fL Normal 6.6-10.1 The [facility] Comment on above: Performed By: #### S CAN CBC, BMP ####[place] [id number] [facility] Platelet Morphology Normal Normal Normal [facility] Comment on above: Result Comment: PERF ORMED BY:[place] [address] [address] [place], [place] [phone] MEDICAL DIRECTORJOSEPH GARCIA M.D. Performed By: #### S CAN CBC, BMP ####[place] [address] [place] [id number] [facility] Platelets (Bld) [#/Vol] 805 10*3/uL High 150-450 [facility] Comment on above: Performed By: #### S CAN CBC, BMP ####[place] [address] [place] [id number] [facility] Polychromasia Slight Normal The [facility] Comment on above: Performed By: #### S CAN CBC, BMP ####[address] RBC (Bld) [#/Vol] 3.14 10*6/uL Low 3.90-5.60 [facility] Comment on above: Performed By: #### S CAN CBC, BMP ####[place] [id number] [facility] WBC (Bld) [#/Vol] 19.5 10*3/uL High 4.1-10.5 [facility] Comment on above: Performed By: #### S CAN CBC, BMP ####[place] [id number] [facility] XR abdomen 1Von 08-18-2023 XR abdomen 1V Normal [facility] XR abdomen 1V Normal [facility] Basic Metabolic Panelon 07-25 Anion gap [Moles/Vol] 10.3 mmol/L Normal 6.0-15.0 Th e [facility] Comment on above: Performed By: #### S CAN CBC, BMP ####[place] [id number] [facility] Calcium [Mass/Vol] 8.4 mg/dL Low 8.6-10.3 The [facility] Comment on above: Performed By: #### S CAN CBC, BMP ####[address] [address] [facility] Chloride [Moles/Vol] 98 mmol/L Normal 98-107 [facility] Comment on above: Performed By: #### S CAN CBC, BMP ####[place] [address] [place] [id number] [facility] CO2 [Moles/Vol] 27.2 mmol/L Normal 21.0-31.0 The [facility] Comment on above: Performed By: #### S CAN CBC, BMP ####[place] [address] [place] [id number] [facility] Creatinine [Mass/Vol] 3.33 mg/dL High 0.70-1.30 The [facility] Comment on above: Performed By: #### S CAN CBC, BMP ####[place] [address] Creatinine Clr Calc Pharmacy 21.78 Normal The [facility] Comment on above: Result Comment: PERF ORMED BY:[address] [place], [place] [phone] MEDICAL DIRECTORJOSEPH GARCIA M.D. Performed By: #### S CAN CBC, BMP ####[place] [id number] [facility] GFR/1.73 sq M.predicted MDRD (S/P/Bld) [Vol rate/Area] 18.997 mL/min/{1.73_m2} Normal The [facility] Comment on above: Performed By: #### S CAN CBC, BMP ####[place] [id number] [facility] Glucose [Mass/Vol] 173 mg/dL High 70-100 The [facility] Comment on above: Result Comment: [place] Glucose Reference Range is dependent on time and content of last meal. Glucose of more than 200 mg/dL in a nonstressed, ambulatory subject supports the diagnosis of Diabetes Mellitus. ADA recommended reference range Performed By: #### S CAN CBC, BMP ####[place] [address] [place] [id number] [facility] Potassium [Moles/Vol] 3.5 mmol/L Normal 3.5-5.1 The [facility] Comment on above: Performed By: #### S CAN CBC, BMP ####[place] [address] [place] [address] [facility] Sodium [Moles/Vol] 132 mmol/L Low 136-145 The [facility] Comment on above: Performed By: #### S CAN CBC, BMP ####[facility] [place] [address] [facility] Urea nitrogen [Mass/Vol] 72 mg/dL High 7-25 [facility] Comment on above: Performed By: #### S CAN CBC, BMP ####[place] [address] [place] [address] [facility] Glucose Poct Glucometerson 0 08-17-2023 Glucose [Mass/Vol] 145 mg/dL Normal The [facility] Comment on above: Result Comment: [place] om Glucose Reference Range is dependent on time and content of last meal. Glucose of more than 200 mg/dL in a nonstressed, ambulatory subject supports the diagnosis of Diabetes Mellitus.PERFORMED BY:[address] LOYATracyLU[address] [place], [place] [phone] MEDICAL DIRECTORJOSEPH GARCIA M.D. Performed By: #### G LULS ####Point of Care testing, Glucose [Mass/Vol] 172 mg/dL Normal The [facility] Comment on above: Result Comment: [place] om Glucose Reference Range is dependent on time and content of last meal. Glucose of more than 200 mg/dL in a nonstressed, ambulatory subject supports the diagnosis of Diabetes Mellitus.PERFORMED BY:[place] [address] [address] LATamikoTracyLUZ [place], [place] [phone] MEDICAL DIRECTORJOSEPH GARCIA M.D. Performed By: #### G LULS ####Point of Care testing, Commemt1 Glu2: Cleaned Meter Normal [facility] Comment on above: Result Comment: PERF ORMED BY:[place] [address] [address] LU[place], [place] [phone] MEDICAL DIRECTORJOSEPH GARCIA M.D. Performed By: #### G LULS ####Point of Care testing, Glucose [Mass/Vol] 159 mg/dL Normal The [facility] Comment on above: Result Comment: [place] om Glucose Reference Range is dependent on time and content of last meal. Glucose of more than 200 mg/dL in a nonstressed, ambulatory subject supports the diagnosis of Diabetes Mellitus. Performed By: #### G LULS ####Point of Care testing, Commemt1 Glu2: Cleaned Meter Normal [facility] Comment on above: Result Comment: PERF ORMED BY:[address] [place], [place] [phone] MEDICAL DIRECTORJOSEPH GARCIA M.D. Performed By: #### G LULS ####Point of Care testing, Glucose [Mass/Vol] 195 mg/dL Normal The [facility] Comment on above: Result Comment: [place] om Glucose Reference Range is dependent on time and content of last meal. Glucose of more than 200 mg/dL in a nonstressed, ambulatory subject supports the diagnosis of Diabetes Mellitus. Performed By: #### G LULS ####Point of Care testing, Commemt1 Glu2: Cleaned Meter Normal [facility] Comment on above: Result Comment: PERF ORMED BY:[address] AM[address], [place] [phone] MEDICAL DIRECTORJOSEPH GARCIA M.D. Performed By: #### G LULS ####Point of Care testing, Glucose [Mass/Vol] 172 mg/dL Normal The [facility] Comment on above: Result Comment: [place] om Glucose Reference Range is dependent on time and content of last meal. Glucose of more than 200 mg/dL in a nonstressed, ambulatory subject supports the diagnosis of Diabetes Mellitus. Performed By: #### G LULS ####Point of Care testing, Microcytes LM Ql (Bld)Ordere d By: Geo Thomas on 08-17-2023 Microcytes Ql (Bld) [facility] Poikilocytosis [Presence] in Blood by Light microscopyOrdered By: Geo Thomas on 08-17-2023 Poikilocytosis LM Ql (Bld) Slight [facility] Scan and CBCon 08-17-2023 Anisocytosis Ql (Bld) Moderate Normal The [facility] Comment on above: Performed By: #### S CAN CBC, BMP ####[place] [id number] [facility] Basophils (Bld) [#/Vol] 0.2 10*3/uL Normal 0.0-0.2 [facility] Comment on above: Performed By: #### S CAN CBC, BMP ####[place] [id number] [facility] Basophils/100 WBC (Bld) 0.8 % Normal . [facility] Comment on above: Performed By: #### S CAN CBC, BMP ####[address] Eosinophils (Bld) [#/Vol] 0.1 10*3/uL Normal 0.0-0.45 [facility] Comment on above: Performed By: #### S CAN CBC, BMP ####[place] [id number] [facility] Eosinophils/100 WBC (Bld) 0.7 % Normal . [facility] Comment on above: Performed By: #### S CAN CBC, BMP ####[place] [id number] [facility] Erythrocyte distribution width (RBC) [Ratio] 17.3 % High 12.0-14.8 The [facility] Comment on above: Performed By: #### S CAN CBC, BMP ####[place] [id number] [facility] Hematocrit (Bld) [Volume fraction] 28.3 % Low 38.8-50.0 The [facility] Comment on above: Performed By: #### S CAN CBC, BMP ####[place] [id number] [facility] Hemoglobin (Bld) [Mass/Vol] 9.7 g/dL Low 13.0-17.0 The [facility] Comment on above: Performed By: #### S CAN CBC, BMP ####[address] Lymphocytes (Bld) [#/Vol] 2.1 10*3/uL Normal 1.00-4.8 The [facility] Comment on above: Performed By: #### S CAN CBC, BMP ####[address] Lymphocytes/100 WBC (Bld) 9.9 % Normal . [facility] Comment on above: Performed By: #### S CAN CBC, BMP ####[address] MCH (RBC) [Entitic mass] 32.0 pg Normal 27.5-35.2 [facility] Comment on above: Performed By: #### S CAN CBC, BMP ####[address] MCV (RBC) [Entitic vol] 93.4 fL Normal 83.5-101 [facility] Comment on above: Performed By: #### S CAN CBC, BMP ####[address] Mean Corpuscular HGB Conc 34.2 g/dL Normal 32.5-35.6 The [facility] Comment on above: Performed By: #### S CAN CBC, BMP ####[address] Microcytosis Moderate Normal The [facility] Comment on above: Performed By: #### S CAN CBC, BMP ####[address] Monocytes (Bld) [#/Vol] 2.6 10*3/uL High 0.0-0.8 [facility] Comment on above: Performed By: #### S CAN CBC, BMP ####[address] Monocytes/100 WBC (Bld) 12.4 % Normal . [facility] Comment on above: Performed By: #### S CAN CBC, BMP ####[facility] [place] [address] [facility] Neutrophils (Bld) [#/Vol] 16.2 10*3/uL High 1.8-7.7 The [facility] Comment on above: Performed By: #### S CAN CBC, BMP ####[place] [address] [place] [address] [facility] Neutrophils/100 WBC (Bld) 76.2 % Normal . [facility] Comment on above: Performed By: #### S CAN CBC, BMP ####[place] [address] [place] [address] [facility] NRBC% 0.0 /100{WBC} Normal 0-0.5 The [facility] Comment on above: Performed By: #### S CAN CBC, BMP ####[place] [address] [place] [address] [facility] Platelet Estimate Increased Normal Normal The [facility] Comment on above: Performed By: #### S CAN CBC, BMP ####[place] [address] [place] [address] [facility] Platelet mean volume (Bld) [Entitic vol] 7.2 fL Normal 6.6-10.1 The [facility] Comment on above: Performed By: #### S CAN CBC, BMP ####[place] [address] [place] [address] [facility] Platelet Morphology Normal Normal Normal [facility] Comment on above: Result Comment: PERF ORMED BY:[place] [address] [address] ZAMANLUZ [place], [place] [phone] MEDICAL DIRECTORJOSEPH GARCIA M.D. Performed By: #### S CAN CBC, BMP ####[address] [address] [facility] Platelets (Bld) [#/Vol] 770 10*3/uL High 150-450 [facility] Comment on above: Performed By: #### S CAN CBC, BMP ####[address] [address] [facility] Poikilocytosis Slight Normal [facility] Comment on above: Performed By: #### S CAN CBC, BMP ####[address] Polychromasia Slight Normal [facility] Comment on above: Performed By: #### S CAN CBC, BMP ####[address] RBC (Bld) [#/Vol] 3.03 10*6/uL Low 3.90-5.60 [facility] Comment on above: Performed By: #### S CAN CBC, BMP ####[place] [id number] [facility] WBC (Bld) [#/Vol] 21.2 10*3/uL High 4.1-10.5 [facility] Comment on above: Performed By: #### S CAN CBC, BMP ####[address] XR abdomen 1Von 08-17-2023 XR abdomen 1V Normal [facility] Arterial Blood Gason 024 ABG Base Excess 4.2 mmol/L High -3.0-3.0 The [facility] Comment on above: Performed By: #### A BG ####Point of Care testing, ABG Frac Inspired O2 30 % Normal The [facility] Comment on above: Performed By: #### A BG ####Point of Care testing, ABG Oxygen Content 6.3 mmol/L Low 6.6-9.7 The [facility] Comment on above: Performed By: #### A BG ####Point of Care testing, ABG Oxygen Saturation 91.5 % Low 95.0-100.0 The [facility] Comment on above: Performed By: #### A BG ####Point of Care testing, ABG PCO2 35.5 mm[Hg] Normal 35.0-45.0 [facility] Comment on above: Performed By: #### A BG ####Point of Care testing, ABG PEEP 5 Normal [facility] Comment on above: Performed By: #### A BG ####Point of Care testing, ABG PH 7.50 High 7.35-7.45 [facility] Comment on above: Performed By: #### A BG ####Point of Care testing, ABG PO2 57.5 mm[Hg] Low 80.0-100.0 [facility] Comment on above: Performed By: #### A BG ####Point of Care testing, ABG TV 500 mL Normal The [facility] Comment on above: Performed By: #### A BG ####Point of Care testing, CO2 [Moles/Vol] 28.4 mmol/L High 23.0-27.0 The [facility] Comment on above: Performed By: #### A BG ####Point of Care testing, HCO3 (Bld) [Moles/Vol] 27.3 mmol/L Normal 23.0-29.0 T [facility] Comment on above: Performed By: #### A BG ####Point of Care testing, Respiratory Critical Normal [facility] Comment on above: Result Comment: Crit ical Value called on: 08/16/2023 at 05:56PERFORMED BY:[facility] [place], [place] [phone] MEDICAL DIRECTORJOSEPH GARCIA M.D. Performed By: #### A BG ####Point of Care testing, Set Respiratory Rate 14 Normal [facility] Comment on above: Performed By: #### A BG ####Point of Care testing, VBG Draw Site Left Radial Normal The [facility] Comment on above: Performed By: #### A BG ####Point of Care testing, Basic Metabolic Panelon 07-25 Anion gap [Moles/Vol] Not performed Normal 6.0-15.0 The [facility] Comment on above: Performed By: #### C BC, BMP ####[facility] [place] [address] [facility] Calcium [Mass/Vol] 8.3 mg/dL Low 8.6-10.3 The [facility] Comment on above: Performed By: #### C BC, BMP ####[address] [address] [facility] Chloride [Moles/Vol] 98 mmol/L Normal 98-107 [facility] Comment on above: Performed By: #### C BC, BMP ####[address] [address] [facility] CO2 [Moles/Vol] 27.2 mmol/L Normal 21.0-31.0 The [facility] Comment on above: Performed By: #### C BC, BMP ####[address] [address] [facility] Creatinine [Mass/Vol] 2.88 mg/dL High 0.70-1.30 [facility] Comment on above: Performed By: #### C BC, BMP ####[address] [address] [facility] Creatinine Clr Calc Pharmacy 25.05 Normal The [facility] Comment on above: Result Comment: PERF ORMED BY:[address] [place]racyW[place], [place] [phone] MEDICAL DIRECTORJOSEPH GARCIA M.D. Performed By: #### C BC, BMP ####[address] [address] [facility] GFR/1.73 sq M.predicted MDRD (S/P/Bld) [Vol rate/Area] 22.612 mL/min/{1.73_m2} Normal The [facility] Comment on above: Performed By: #### C BC, BMP ####[address] [address] [facility] Glucose [Mass/Vol] 168 mg/dL High 70-100 The [facility] Comment on above: Result Comment: [place] Glucose Reference Range is dependent on time and content of last meal. Glucose of more than 200 mg/dL in a nonstressed, ambulatory subject supports the diagnosis of Diabetes Mellitus. ADA recommended reference range Performed By: #### C BC, BMP ####[address] [address] [facility] Potassium Normal 3.5-5.1 [facility] Comment on above: Result Comment: Spec imen hemolyzed, redraw requested Results called at 0455 on 08/16/23 Performed By: #### C HIGINIO, BMP ####[address] Sodium [Moles/Vol] 132 mmol/L Low 136-145 [facility] Comment on above: Performed By: #### C HIGINIO, BMP ####[address] Urea nitrogen [Mass/Vol] 44 mg/dL High 7-25 [facility] Comment on above: Performed By: #### C HIGINIO, BMP ####[address] Complete Blood Count Auto Di ffon 08-16-2023 Basophils (Bld) [#/Vol] 0.2 10*3/uL Normal 0.0-0.2 [facility] Comment on above: Result Comment: PERF ORMED BY:[address] SHALINITracyLUZ [place], [place] [phone] MEDICAL DIRECTORJOSEPH GARCIA M.D. Performed By: #### C HIGINIO, BMP ####[address] Basophils/100 WBC (Bld) 0.7 % Normal . [facility] Comment on above: Performed By: #### C HIGINIO, BMP ####[address] Eosinophils (Bld) [#/Vol] 0.1 10*3/uL Normal 0.0-0.45 [facility] Comment on above: Performed By: #### C HIGINIO, BMP ####[address] Eosinophils/100 WBC (Bld) 0.3 % Normal . [facility] Comment on above: Performed By: #### C HIGINIO, BMP ####[address] Erythrocyte distribution width (RBC) [Ratio] 17.3 % High 12.0-14.8 [facility] Comment on above: Performed By: #### C BC, BMP ####[address] Hematocrit (Bld) [Volume fraction] 30.8 % Low 38.8-50.0 [facility] Comment on above: Performed By: #### C BC, BMP ####[address] Hemoglobin (Bld) [Mass/Vol] 10.2 g/dL Low 13.0-17.0 The [facility] Comment on above: Performed By: #### C HIGINIO, BMP ####[address] Lymphocytes (Bld) [#/Vol] 2.1 10*3/uL Normal 1.00-4.8 The [facility] Comment on above: Performed By: #### C HIGINIO, BMP ####[address] Lymphocytes/100 WBC (Bld) 9.5 % Normal . [facility] Comment on above: Performed By: #### C HIGINIO, BMP ####[address] MCH (RBC) [Entitic mass] 28.8 pg Normal 27.5-35.2 [facility] Comment on above: Performed By: #### C BC, BMP ####[address] MCV (RBC) [Entitic vol] 87.2 fL Normal 83.5-101 [facility] Comment on above: Performed By: #### C BC, BMP ####[address] Mean Corpuscular HGB Conc 33.1 g/dL Normal 32.5-35.6 [facility] Comment on above: Performed By: #### C BC, BMP ####[address] Monocytes # (Auto) Normal 0.0-0.8 The [facility] Comment on above: Result Comment: Abso lute monocytosis is commonly reactive in nature. However, if unexplained, recommend follow-up CBC in 3 months to evaluate for persistence. Performed By: #### C HIGINIO, BMP ####[place] [address] [place] [address] [facility] Monocytes/100 WBC (Bld) 12.8 % Normal . [facility] Comment on above: Performed By: #### C HIGINIO, BMP ####[place] [address] [place] [address] [facility] Neutrophils (Bld) [#/Vol] 16.8 10*3/uL High 1.8-7.7 The [facility] Comment on above: Performed By: #### C HIGINIO, BMP ####[address] [address] [facility] Neutrophils/100 WBC (Bld) 76.7 % Normal . [facility] Comment on above: Performed By: #### C HIGINIO, BMP ####[address] [address] [facility] NRBC% 0.1 /100{WBC} Normal 0-0.5 The [facility] Comment on above: Performed By: #### C HIGINIO, BMP ####[address] [address] [facility] Platelet mean volume (Bld) [Entitic vol] 7.1 fL Normal 6.6-10.1 The [facility] Comment on above: Performed By: #### C HIGINIO, BMP ####[address] [address] [facility] Platelets (Bld) [#/Vol] 833 10*3/uL High 150-450 [facility] Comment on above: Performed By: #### C HIGINIO, BMP ####[place] [address] [place] [address] [place] RBC (Bld) [#/Vol] 3.53 10*6/uL Low 3.90-5.60 [facility] Comment on above: Performed By: #### C HIGINIO, BMP ####[facility] [place] [address] [facility] WBC (Bld) [#/Vol] 21.9 10*3/uL High 4.1-10.5 [facility] Comment on above: Performed By: #### C BC, BMP ####[facility] [place] [address] [facility] Glucose Poct Glucometerson 0 08-16-2023 Glucose [Mass/Vol] 182 mg/dL Normal [facility] Comment on above: Result Comment: [facility] Glucose Reference Range is dependent on time and content of last meal. Glucose of more than 200 mg/dL in a nonstressed, ambulatory subject supports the diagnosis of Diabetes Mellitus.PERFORMED BY:[place] [address] [address] [place], [place] [phone] MEDICAL DIRECTORJOSEPH GARCIA M.D. Performed By: #### G VALERY ####Point of Care testing, Glucose [Mass/Vol] 208 mg/dL Normal [facility] Group Comment on above: Result Comment: [facility] Glucose Reference Range is dependent on time and content of last meal. Glucose of more than 200 mg/dL in a nonstressed, ambulatory subject supports the diagnosis of Diabetes Mellitus.PERFORMED BY:[place] [address] [address] [place], [place] [phone] MEDICAL DIRECTORJOSEPH GARCIA M.D. Performed By: #### G LUANURAG ####Point of Care testing, Redraw Potassiumon Potassium [Moles/Vol] 3.8 mmol/L Normal 3.5-5.1 The [facility] Comment on above: Result Comment: PERF ORMED BY:[address] [address] [place] NUÑE[place], [place] [phone] MEDICAL DIRECTORJOSEPH GARCIA M.D. Performed By: #### R EDRUTHIE K ####[address] [address] [facility] Basic Metabolic Panelon 07-25 Anion gap [Moles/Vol] 12.6 mmol/L Normal 6.0-15.0 [facility] Comment on above: Performed By: #### D IFF CBC, BMP ####[place] [address] [place] [id number] [facility] Calcium [Mass/Vol] 8.0 mg/dL Low 8.6-10.3 The [facility] Comment on above: Performed By: #### D IFF CBC, BMP ####[place] [id number] [facility] Chloride [Moles/Vol] 96 mmol/L Low 98-107 The [facility] Comment on above: Performed By: #### D IFF CBC, BMP ####[place] [id number] [facility] CO2 [Moles/Vol] 25.7 mmol/L Normal 21.0-31.0 The [facility] Comment on above: Performed By: #### D IFF CBC, BMP ####[place] [id number] [facility] Creatinine [Mass/Vol] 3.22 mg/dL High 0.70-1.30 The [facility] Comment on above: Performed By: #### D IFF CBC, BMP ####[place] [id number] [facility] Creatinine Clr Calc Pharmacy 22.49 Normal The [facility] Comment on above: Result Comment: PERF ORMED BY:[address] [place], [place] [phone] ELAINE GARCIA M.D. Performed By: #### D IFF CBC, BMP ####[address] [address] [facility] GFR/1.73 sq M.predicted MDRD (S/P/Bld) [Vol rate/Area] 19.778 mL/min/{1.73_m2} Normal The [facility] Comment on above: Performed By: #### D IFF CBC, BMP ####[place] [id number] [facility] Glucose [Mass/Vol] 192 mg/dL High 70-100 The [facility] Comment on above: Result Comment: [place] Glucose Reference Range is dependent on time and content of last meal. Glucose of more than 200 mg/dL in a nonstressed, ambulatory subject supports the diagnosis of Diabetes Mellitus. ADA recommended reference range Performed By: #### D IFF CBC, BMP ####[place] [address] [place] [id number] [facility] Potassium [Moles/Vol] 3.3 mmol/L Low 3.5-5.1 The [facility] Comment on above: Performed By: #### D IFF CBC, BMP ####[place] [address] [place] [id number] [facility] Sodium [Moles/Vol] 131 mmol/L Low 136-145 The [facility] Comment on above: Performed By: #### D IFF CBC, BMP ####[place] [address] [place] [id number] [facility] Urea nitrogen [Mass/Vol] 52 mg/dL High 7-25 [facility] Comment on above: Performed By: #### D IFF CBC, BMP ####[place] [address] [place] [id number] [facility] Demetrio cells [Presence] in Blo od by Light microscopyOrdered By: Geo Thomas on 08-15-2023 [place] cells LM Ql (Bld) Slight [facility] Diff and CBCon 08-15-2023 Anisocytosis Ql (Bld) Slight Normal The [facility] Comment on above: Performed By: #### D IFF CBC, BMP ####[place] [address] [place] [id number] [facility] Crenated RBC Slight Normal The [facility] Comment on above: Performed By: #### D IFF CBC, BMP ####[place] [address] [place] [id number] [facility] Erythrocyte distribution width (RBC) [Ratio] 17.6 % High 12.0-14.8 The [facility] Comment on above: Performed By: #### D IFF CBC, BMP ####[address] Hematocrit (Bld) [Volume fraction] 29.9 % Low 38.8-50.0 The [facility] Comment on above: Performed By: #### D IFF CBC, BMP ####[place] [id number] [facility] Hemoglobin (Bld) [Mass/Vol] 9.8 g/dL Low 13.0-17.0 The [facility] Comment on above: Performed By: #### D IFF CBC, BMP ####[place] [id number] [facility] MCH (RBC) [Entitic mass] 29.3 pg Normal 27.5-35.2 [facility] Comment on above: Performed By: #### D IFF CBC, BMP ####[place] [id number] [facility] MCV (RBC) [Entitic vol] 89.2 fL Normal 83.5-101 [facility] Comment on above: Performed By: #### D IFF CBC, BMP ####[place] [id number] [facility] Mean Corpuscular HGB Conc 32.8 g/dL Normal 32.5-35.6 The [facility] Comment on above: Performed By: #### D IFF CBC, BMP ####[place] [id number] [facility] Myelocytes 1 % High 0-0 [facility] Comment on above: Performed By: #### D IFF CBC, BMP ####[place] [id number] [facility] Platelet Estimate Increased Normal Normal The [facility] Comment on above: Performed By: #### D IFF CBC, BMP ####[place] [id number] [facility] Platelet mean volume (Bld) [Entitic vol] 7.0 fL Normal 6.6-10.1 The [facility] Comment on above: Result Comment: PERF ORMED BY:[address] [place], [place] [phone] MEDICAL DIRECTORJOSEPH GARCIA M.D. Performed By: #### D IFF CBC, BMP ####[place] [address] [address] [place] [address] [facility] Platelet Morphology Normal Normal Normal The [facility] Comment on above: Result Comment: PERF ORMED BY:[address] [place]racyLUZ [place], [place] [phone] MEDICAL DIRECTORJOSEPH GARCIA M.D. Performed By: #### D IFF CBC, BMP ####[address] [address] [facility] Platelets (Bld) [#/Vol] 746 10*3/uL High 150-450 [facility] Comment on above: Performed By: #### D IFF CBC, BMP ####[address] [address] [facility] Poikilocytosis Slight Normal The [facility] Comment on above: Performed By: #### D IFF CBC, BMP ####[address] [address] [facility] Polychromasia Slight Normal The [facility] Comment on above: Performed By: #### D IFF CBC, BMP ####[place] [address] [place] [address] [facility] RBC (Bld) [#/Vol] 3.35 10*6/uL Low 3.90-5.60 [facility] Comment on above: Performed By: #### D IFF CBC, BMP ####[address] [address] [facility] WBC (Bld) [#/Vol] 18.7 10*3/uL High 4.1-10.5 [facility] Comment on above: Performed By: #### D IFF CBC, BMP ####[address] [address] [place] Eosinophils/100 leukocytes i n Blood by Manual countOrdered By: Geo Thomas on 08-15-2023 Eosinophils/100 WBC (Bld) 2 % Normal 1-3 [facility] Comment on above: Performed By: #### D IFF CBC, BMP ####[facility] [address] [place] [address] [facility] Glucose Poct Glucometerson 0 08-15-2023 Glucose [Mass/Vol] 217 mg/dL Normal The [facility] Comment on above: Result Comment: [place] om Glucose Reference Range is dependent on time and content of last meal. Glucose of more than 200 mg/dL in a nonstressed, ambulatory subject supports the diagnosis of Diabetes Mellitus.PERFORMED BY:[address] [address] [address] LOYATracyLUZ [place], [place] [phone] MEDICAL DIRECTORJOSEPH GARCIA M.D. Performed By: #### G LULS ####Point of Care testing, Commemt1 Glu2: Cleaned Meter Normal [facility] Comment on above: Result Comment: PERF ORMED BY:[address] [place] [address] [address] [place], [place] [phone] MEDICAL DIRECTORJOSEPH GARCIA M.D. Performed By: #### G LULS ####Point of Care testing, Glucose [Mass/Vol] 213 mg/dL Normal The [facility] Comment on above: Result Comment: [place] om Glucose Reference Range is dependent on time and content of last meal. Glucose of more than 200 mg/dL in a nonstressed, ambulatory subject supports the diagnosis of Diabetes Mellitus. Performed By: #### G LULS ####Point of Care testing, Glucose [Mass/Vol] 219 mg/dL Normal The [facility] Comment on above: Result Comment: [place] om Glucose Reference Range is dependent on time and content of last meal. Glucose of more than 200 mg/dL in a nonstressed, ambulatory subject supports the diagnosis of Diabetes Mellitus.PERFORMED BY:[address] [place] [address] [address] NUÑ[place], [place] [phone] MEDICAL DIRECTORJOSEPH GARCIA M.D. Performed By: #### G LULS ####Point of Care testing, Commemt1 Glu2: Cleaned Meter Normal [facility] Comment on above: Result Comment: PERF ORMED BY:[facility] [place] [address] [place]amikoTracyWELDON, [place] [phone] MEDICAL DIRECTORJOSEPH GARCIA M.D. Performed By: #### G LULS ####Point of Care testing, Glucose [Mass/Vol] 220 mg/dL Normal [facility] Comment on above: Result Comment: [facility] Glucose Reference Range is dependent on time and content of last meal. Glucose of more than 200 mg/dL in a nonstressed, ambulatory subject supports the diagnosis of Diabetes Mellitus. Performed By: #### G LULS ####Point of Care testing, Lymphocytes/100 leukocytes i n Blood by Manual countOrdered By: Geo Thomas on 08-15-2023 Lymphocytes/100 WBC (Bld) 5 % Low 18-42 [facility] Comment on above: Performed By: #### D IFF CBC, BMP ####[place] [address] [place] [address] [facility] Manual blood segmented neutr ophils/100 leukocytesOrdered By: Geo Thomas on 08-15-2023 Segmented neutrophils/100 WBC (Bld) 83 % High 50-70 [facility] Comment on above: Performed By: #### D IFF CBC, BMP ####[place] [address] [place] [address] [place] Monocytes/100 leukocytes in Blood by Manual countOrdered By: Geo Thomas on 08-15-2023 Monocytes/100 WBC (Bld) 9 % Normal 2-11 [facility] Comment on above: Performed By: #### D IFF CBC, BMP ####[address] [address] [place] Myelocytes/100 WBC Manual cn t (Bld)Ordered By: Geo Thomas on 08-15-2023 Myelocytes/100 WBC (Bld) 1 % 0-0 [facility] Basic Metabolic Panelon 07-25 Anion gap [Moles/Vol] 11.8 mmol/L Normal 6.0-15.0 Th e [facility] Comment on above: Performed By: #### C BC, BMP ####[place] [address] [place] [address] [facility] Calcium [Mass/Vol] 8.1 mg/dL Low 8.6-10.3 [facility] Comment on above: Performed By: #### C BC, BMP ####[place] [address] [place] [address] [facility] Chloride [Moles/Vol] 94 mmol/L Low 98-107 [facility] Comment on above: Performed By: #### C BC, BMP ####[address] [address] [facility] CO2 [Moles/Vol] 28.3 mmol/L Normal 21.0-31.0 The [facility] Comment on above: Performed By: #### C BC, BMP ####[address] [address] [facility] Creatinine [Mass/Vol] 3.25 mg/dL Significan t change up 0.70-1.30 [facility] Comment on above: Performed By: #### C BC, BMP ####[place] [address] [place] [address] [place] Creatinine Clr Calc Pharmacy 22.52 Normal The [facility] Comment on above: Result Comment: PERF ORMED BY:[address] [place]amikoTracyLUZ [place], [place] [phone] MEDICAL DIRECTORJOSEPH GARCIA M.D. Performed By: #### C BC, BMP ####[address] [address] [facility] GFR/1.73 sq M.predicted MDRD (S/P/Bld) [Vol rate/Area] 19.560 mL/min/{1.73_m2} Normal The [facility] Comment on above: Performed By: #### C BC, BMP ####[address] [address] [facility] Glucose [Mass/Vol] 148 mg/dL High 70-100 [facility] Comment on above: Result Comment: [place] Glucose Reference Range is dependent on time and content of last meal. Glucose of more than 200 mg/dL in a nonstressed, ambulatory subject supports the diagnosis of Diabetes Mellitus. ADA recommended reference range Performed By: #### C BC, BMP ####[address] Potassium [Moles/Vol] 3.1 mmol/L Low 3.5-5.1 [facility] Comment on above: Performed By: #### C BC, BMP ####[address] Sodium [Moles/Vol] 131 mmol/L Low 136-145 [facility] Comment on above: Performed By: #### C HIGINIO, BMP ####[address] Urea nitrogen [Mass/Vol] 34 mg/dL Significant change up 12-17 [facility] Comment on above: Performed By: #### C HIGINIO, BMP ####[address] Complete Blood Count Auto Di ffon 08-14-2023 Basophils (Bld) [#/Vol] 0.1 10*3/uL Normal 0.0-0.2 [facility] Comment on above: Result Comment: PERF ORMED BY:[address] [place], [place] [phone] MEDICAL DIRECTORJOSEPH GARCIA M.D. Performed By: #### C HIGINIO, BMP ####[address] Basophils/100 WBC (Bld) 0.4 % Normal . [facility] Comment on above: Performed By: #### C BC, BMP ####[address] Eosinophils (Bld) [#/Vol] 0.1 10*3/uL Normal 0.0-0.45 [facility] Comment on above: Performed By: #### C HIGINIO, BMP ####[address] Eosinophils/100 WBC (Bld) 0.5 % Normal . [facility] Comment on above: Performed By: #### C HIGINIO, BMP ####[address] Erythrocyte distribution width (RBC) [Ratio] 17.5 % High 12.0-14.8 [facility] Comment on above: Performed By: #### C HIGINIO, BMP ####[address] Hematocrit (Bld) [Volume fraction] 28.9 % Low 38.8-50.0 [facility] Comment on above: Performed By: #### C HIGINIO, BMP ####[address] Hemoglobin (Bld) [Mass/Vol] 9.5 g/dL Low 13.0-17.0 [facility] Comment on above: Performed By: #### C HIGINIO, BMP ####[address] Lymphocytes (Bld) [#/Vol] 1.2 10*3/uL Normal 1.00-4.8 [facility] Comment on above: Performed By: #### C HIGINIO, BMP ####[address] Lymphocytes/100 WBC (Bld) 5.7 % Normal . [facility] Comment on above: Performed By: #### C HIGINIO, BMP ####[address] MCH (RBC) [Entitic mass] 29.1 pg Normal 27.5-35.2 [facility] Comment on above: Performed By: #### C HIGINIO, BMP ####[address] MCV (RBC) [Entitic vol] 88.9 fL Normal 83.5-101 [facility] Comment on above: Performed By: #### C HIGINIO, BMP ####[address] Mean Corpuscular HGB Conc 32.7 g/dL Normal 32.5-35.6 [facility] Comment on above: Performed By: #### C BC, BMP ####[place] [id number] [facility] Monocytes (Bld) [#/Vol] 3.0 10*3/uL High 0.0-0.8 [facility] Comment on above: Performed By: #### C BC, BMP ####[place] [id number] [facility] Monocytes/100 WBC (Bld) 14.1 % Normal . [facility] Comment on above: Result Comment: Abso lute monocytosis is commonly reactive in nature. However, if unexplained, recommend follow-up CBC in 3 months to evaluate for persistence. Performed By: #### C BC, BMP ####[address] Neutrophils (Bld) [#/Vol] 16.7 10*3/uL High 1.8-7.7 [facility] Comment on above: Performed By: #### C BC, BMP ####[place] [id number] [facility] Neutrophils/100 WBC (Bld) 79.3 % Normal . [facility] Comment on above: Performed By: #### C BC, BMP ####[place] [id number] [facility] NRBC% 0.0 /100{WBC} Normal 0-0.5 [facility] Comment on above: Performed By: #### C BC, BMP ####[place] [id number] [facility] Platelet mean volume (Bld) [Entitic vol] 7.2 fL Normal 6.6-10.1 The [facility] Comment on above: Performed By: #### C BC, BMP ####[address] [address] [facility] Platelets (Bld) [#/Vol] 705 10*3/uL High 150-450 [facility] Comment on above: Performed By: #### C BC, BMP ####[facility] [place] [address] [facility] RBC (Bld) [#/Vol] 3.25 10*6/uL Low 3.90-5.60 [facility] Comment on above: Performed By: #### C BC, BMP ####[place] [address] [place] [address] [facility] WBC (Bld) [#/Vol] 21.1 10*3/uL High 4.1-10.5 [facility] Comment on above: Performed By: #### C BC, BMP ####[place] [address] [place] [address] [facility] Glucose Poct Glucometerson 0 08-14-2023 Glucose [Mass/Vol] 203 mg/dL Normal [facility] Comment on above: Result Comment: [place] om Glucose Reference Range is dependent on time and content of last meal. Glucose of more than 200 mg/dL in a nonstressed, ambulatory subject supports the diagnosis of Diabetes Mellitus.PERFORMED BY:[place] [address] [place] [place], [place] [phone] MEDICAL DIRECTORJOSEPH GARCIA M.D. Performed By: #### G LULS ####Point of Care testing, Glucose [Mass/Vol] 232 mg/dL Normal [facility] Comment on above: Result Comment: [place] om Glucose Reference Range is dependent on time and content of last meal. Glucose of more than 200 mg/dL in a nonstressed, ambulatory subject supports the diagnosis of Diabetes Mellitus.PERFORMED BY:[place] [address] [address] [place], [place] [phone] MEDICAL SILVIA GARCIA M.D. Performed By: #### G LULS ####Point of Care testing, Commemt1 Glu2: Cleaned Meter Normal [facility] Comment on above: Result Comment: PERF ORMED BY:[place] [address] [place] NUÑ[place], [place] [phone] MEDICAL SILVIA GARCIA M.D. Performed By: #### G LULS ####Point of Care testing, Glucose [Mass/Vol] 148 mg/dL Normal [facility] Comment on above: Result Comment: [place] om Glucose Reference Range is dependent on time and content of last meal. Glucose of more than 200 mg/dL in a nonstressed, ambulatory subject supports the diagnosis of Diabetes Mellitus. Performed By: #### G LULS ####Point of Care testing, Commemt1 Glu2: Cleaned Meter Normal [facility] Comment on above: Result Comment: PERF ORMED BY:[facility] [place] [place], [place] [phone] MEDICAL DIRECTORJOSEPH GARCIA M.D. Performed By: #### G LULS ####Point of Care testing, Glucose [Mass/Vol] 255 mg/dL Normal [facility] Comment on above: Result Comment: [place] om Glucose Reference Range is dependent on time and content of last meal. Glucose of more than 200 mg/dL in a nonstressed, ambulatory subject supports the diagnosis of Diabetes Mellitus. Performed By: #### G LULS ####Point of Care testing, XR chest 1V portableon 08-13 XR chest 1V portable Normal [facility] Aerobic Cultureon 08-13-2023 Aerobic Culture Normal The [facility] Comment on above: Performed By: #### A ERC, ####[facility] [place] [address] [facility] Arterial Blood Gason 024 ABG Base Excess 1.3 mmol/L Normal -3.0-3.0 [facility] Comment on above: Performed By: #### A BG ####Point of Care testing, ABG Frac Inspired O2 50% Normal The [facility] Comment on above: Performed By: #### A BG ####Point of Care testing, ABG Oxygen Content 6.2 mmol/L Low 6.6-9.7 [facility] Comment on above: Performed By: #### A BG ####Point of Care testing, ABG Oxygen Saturation 94.0 % Low 95.0-100.0 [facility] Comment on above: Performed By: #### A BG ####Point of Care testing, ABG PCO2 40.4 mm[Hg] Normal 35.0-45.0 [facility] Comment on above: Performed By: #### A BG ####Point of Care testing, ABG PH 7.42 Normal 7.35-7.45 [facility] Comment on above: Performed By: #### A BG ####Point of Care testing, ABG PO2 71.0 mm[Hg] Low 80.0-100.0 [facility] Comment on above: Performed By: #### A BG ####Point of Care testing, ABG Pressure Support 7.0 Normal [facility] Comment on above: Performed By: #### A BG ####Point of Care testing, CO2 [Moles/Vol] 27.0 mmol/L Normal 23.0-27.0 The [facility] Comment on above: Performed By: #### A BG ####Point of Care testing, CPAP 5.0 Normal The [facility] Comment on above: Performed By: #### A BG ####Point of Care testing, HCO3 (Bld) [Moles/Vol] 25.8 mmol/L Normal 23.0-29.0 T he [facility] Comment on above: Performed By: #### A BG ####Point of Care testing, Respiratory Critical Normal [facility] Comment on above: Result Comment: Crit ical Value called on: 08/13/2023 at 15:48PERFORMED BY:[facility] [place], [place] [phone] MEDICAL DIRECTORJOSEPH GARCIA M.D. Performed By: #### A BG ####Point of Care testing, VBG Draw Site Right Radial Normal [facility] Comment on above: Performed By: #### A BG ####Point of Care testing, ABG Base Excess -2.7 mmol/L Normal -3.0-3.0 The [facility] Comment on above: Performed By: #### A BG ####Point of Care testing, ABG Frac Inspired O2 50 % Normal The [facility] Comment on above: Performed By: #### A BG ####Point of Care testing, ABG Oxygen Content 5.7 mmol/L Low 6.6-9.7 [facility] Comment on above: Performed By: #### A BG ####Point of Care testing, ABG Oxygen Saturation 93.1 % Low 95.0-100.0 The [facility] Comment on above: Performed By: #### A BG ####Point of Care testing, ABG PCO2 39.7 mm[Hg] Normal 35.0-45.0 [facility] Comment on above: Performed By: #### A BG ####Point of Care testing, ABG PEEP 5 Normal The [facility] Comment on above: Performed By: #### A BG ####Point of Care testing, ABG PH 7.37 Normal 7.35-7.45 [facility] Comment on above: Performed By: #### A BG ####Point of Care testing, ABG PO2 70.7 mm[Hg] Low 80.0-100.0 [facility] Comment on above: Performed By: #### A BG ####Point of Care testing, ABG TV 500 mL Normal The [facility] Comment on above: Performed By: #### A BG ####Point of Care testing, CO2 [Moles/Vol] 23.6 mmol/L Normal 23.0-27.0 The [facility] Comment on above: Performed By: #### A BG ####Point of Care testing, HCO3 (Bld) [Moles/Vol] 22.4 mmol/L Low 23.0-29.0 T he [facility] [facility] Comment on above: Performed By: #### A BG ####Point of Care testing, Respiratory Critical Normal The [facility] Comment on above: Result Comment: Crit ical Value called on: 08/13/2023 at 05:08PERFORMED BY:[facility] [place], [place] [phone] MEDICAL DIRECTORJOSEPH GARCIA M.D. Performed By: #### A BG ####Point of Care testing, Set Respiratory Rate 14 Normal The [facility] Comment on above: Performed By: #### A BG ####Point of Care testing, VBG Draw Site Right Radial Normal The [facility] Comment on above: Performed By: #### A BG ####Point of Care testing, Ventilator Mode AC Normal [facility] Comment on above: Performed By: #### A BG ####Point of Care testing, Basic Metabolic Panelon 07-25 Anion gap [Moles/Vol] 18.7 mmol/L High 6.0-15.0 e [facility] Comment on above: Performed By: #### C BC, BMP ####[address] [place] [address] [facility] Calcium [Mass/Vol] 8.0 mg/dL Low 8.6-10.3 The [facility] Comment on above: Performed By: #### C BC, BMP ####[address] [address] [facility] Chloride [Moles/Vol] 92 mmol/L Low 98-107 The [facility] Comment on above: Performed By: #### C BC, BMP ####[address] [address] [facility] CO2 [Moles/Vol] 23.7 mmol/L Normal 21.0-31.0 The [facility] Comment on above: Performed By: #### C BC, BMP ####[address] [address] [facility] Creatinine [Mass/Vol] 4.61 mg/dL Significan t change up 0.70-1.30 The [facility] Comment on above: Performed By: #### C BC, BMP ####[address] [address] [facility] Creatinine Clr Calc Pharmacy 15.87 Normal The [facility] Comment on above: Result Comment: PERF ORMED BY:[address] [address] [address] [place], [place] [phone] MEDICAL DIRECTORJOSEPH GARCIA M.D. Performed By: #### C BC, BMP ####[address] [address] [facility] GFR/1.73 sq M.predicted MDRD (S/P/Bld) [Vol rate/Area] 12.858 mL/min/{1.73_m2} Normal The [facility] Comment on above: Performed By: #### C BC, BMP ####[place] [id number] [facility] Glucose [Mass/Vol] 181 mg/dL High 70-100 The [facility] Comment on above: Result Comment: [place] Glucose Reference Range is dependent on time and content of last meal. Glucose of more than 200 mg/dL in a nonstressed, ambulatory subject supports the diagnosis of Diabetes Mellitus. ADA recommended reference range Performed By: #### C BC, BMP ####[id number] [facility] Potassium [Moles/Vol] 4.4 mmol/L Normal 3.5-5.1 The [facility] Comment on above: Performed By: #### C BC, BMP ####[id number] [facility] Sodium [Moles/Vol] 130 mmol/L Low 136-145 The [facility] Comment on above: Performed By: #### C BC, BMP ####[id number] [facility] Urea nitrogen [Mass/Vol] 66 mg/dL High 7-25 The [facility] Comment on above: Performed By: #### C BC, BMP ####[id number] [facility] Complete Blood Count Auto Di ffon 08-13-2023 Basophils (Bld) [#/Vol] 0.1 10*3/uL Normal 0.0-0.2 The [facility] Comment on above: Result Comment: PERF ORMED BY:[address] [place], [place] [phone] MEDICAL DIRECTORJOSEPH GARCIA M.D. Performed By: #### C BC, BMP ####[id number] [facility] Basophils/100 WBC (Bld) 0.3 % Normal . [facility] Comment on above: Performed By: #### C BC, BMP ####[id number] [facility] Eosinophils (Bld) [#/Vol] 0.0 10*3/uL Normal 0.0-0.45 The [facility] Comment on above: Performed By: #### C BC, BMP ####[id number] [facility] Eosinophils/100 WBC (Bld) 0.1 % Normal . [facility] Comment on above: Performed By: #### C BC, BMP ####[address] Erythrocyte distribution width (RBC) [Ratio] 17.3 % High 12.0-14.8 The [facility] Comment on above: Performed By: #### C BC, BMP ####[id number] [facility] Hematocrit (Bld) [Volume fraction] 28.4 % Low 38.8-50.0 The [facility] Comment on above: Performed By: #### C BC, BMP ####[id number] [facility] Hemoglobin (Bld) [Mass/Vol] 9.4 g/dL Low 13.0-17.0 The [facility] Comment on above: Performed By: #### C BC, BMP ####[id number] [facility] Lymphocytes (Bld) [#/Vol] 1.1 10*3/uL Normal 1.00-4.8 The [facility] Comment on above: Performed By: #### C BC, BMP ####[place] [id number] [facility] Lymphocytes/100 WBC (Bld) 3.3 % Normal . The [facility] Comment on above: Performed By: #### C BC, BMP ####[address] MCH (RBC) [Entitic mass] 29.8 pg Normal 27.5-35.2 The [facility] Comment on above: Performed By: #### C BC, BMP ####[address] MCV (RBC) [Entitic vol] 90.4 fL Normal 83.5-101 The [facility] Comment on above: Performed By: #### C BC, BMP ####[address] Mean Corpuscular HGB Conc 32.9 g/dL Normal 32.5-35.6 The [facility] Comment on above: Performed By: #### C BC, BMP ####[address] Monocytes (Bld) [#/Vol] 3.2 10*3/uL High 0.0-0.8 The [facility] Comment on above: Performed By: #### C BC, BMP ####[address] Monocytes/100 WBC (Bld) 9.5 % Normal . [facility] Comment on above: Performed By: #### C BC, BMP ####[address] Neutrophils (Bld) [#/Vol] 28.9 10*3/uL High 1.8-7.7 The [facility] Comment on above: Performed By: #### C BC, BMP ####[address] Neutrophils/100 WBC (Bld) 86.8 % Normal . [facility] Comment on above: Performed By: #### C BC, BMP ####[address] NRBC% 0.0 /100{WBC} Normal 0-0.5 The [facility] Comment on above: Performed By: #### C BC, BMP ####[address] [place] [address] [facility] Platelet mean volume (Bld) [Entitic vol] 7.0 fL Normal 6.6-10.1 The [facility] Comment on above: Performed By: #### C BC, BMP ####[address] [address] [facility] Platelets (Bld) [#/Vol] 652 10*3/uL High 150-450 [facility] Comment on above: Performed By: #### C BC, BMP ####[address] [address] [facility] RBC (Bld) [#/Vol] 3.14 10*6/uL Low 3.90-5.60 The [facility] Comment on above: Performed By: #### C HIGINIO, BMP ####[address] [address] [facility] WBC (Bld) [#/Vol] 33.4 10*3/uL High 4.1-10.5 The [facility] Comment on above: Performed By: #### C HIGINIO, BMP ####[place] [id number] [facility] Continuous positive airway p ressure (CPAP)Ordered By: Geo Thomas on 08-13-2023 Continuous positive airway pressure Respiratory system 5.0 cmH2O [facility] Glucose Poct Glucometerson 0 08-13-2023 Glucose [Mass/Vol] 210 mg/dL Normal The [facility] Comment on above: Result Comment: [place] Glucose Reference Range is dependent on time and content of last meal. Glucose of more than 200 mg/dL in a nonstressed, ambulatory subject supports the diagnosis of Diabetes Mellitus.PERFORMED BY:[address] [place], [place] [phone] MEDICAL DIRECTORJOSEPH GARCIA M.D. Performed By: #### G LULS ####Point of Care testing, Glucose [Mass/Vol] 125 mg/dL Normal The [facility] Comment on above: Result Comment: [facility] Glucose Reference Range is dependent on time and content of last meal. Glucose of more than 200 mg/dL in a nonstressed, ambulatory subject supports the diagnosis of Diabetes Mellitus.PERFORMED BY:[facility] [place], [place] [phone] MEDICAL DIRECTORJOSEPH GARCIA M.D. Performed By: #### G LULS ####Point of Care testing, Glucose [Mass/Vol] 209 mg/dL Normal The [facility] Comment on above: Result Comment: [facility] Glucose Reference Range is dependent on time and content of last meal. Glucose of more than 200 mg/dL in a nonstressed, ambulatory subject supports the diagnosis of Diabetes Mellitus.PERFORMED BY:[facility] [place], [place] [phone] MEDICAL DIRECTORJOSEPH GARCIA M.D. Performed By: #### G LUANURAG ####Point of Care testing, Gram Stainon 08-13-2023 Microscopic observation Gram stain Nom (Unsp spec) Gram Stain Result 2+ White Blood Cells 2+ Epithelial Cells No Bacteria Seen PERFORMED BY: [facility] [address] [facility] [place] [address] PATHOLOGIST PIPE RECOVERY SPECIALIST JOSEPH GARCIA M.D. Normal The [facility] Comment on above: Performed By: #### A COLLIN, ####[facility] [place] [address] [facility] Gram stain for investigation of transfusion reactionOrdered By: Morales Mckeon on 08-13-2023 Microscopic observation Gram stain Nom (Unsp spec) 2 Days [facility] No Panel InformationOrdered By: Geo Thomas on 08-13-2023 Blood Gas Pressure Support 7.0 cmH2O [facility] 7.0 cmH2O [facility] Activated partial thrombopla stin time (aPTT) in platelet poor plasma by coagulation aOrdered By: Geo Thomas on 08-12-2023 aPTT Coag (PPP) [Time] 27.6 s 25.1-36.5 [facility] Comment on above: A hematocrit value g reater than 55% may lead to inaccurate results in coagulation testing. Patients having hematocrit values >55% require a special collection tube for coagulation studies. Please contact the laboratory at [phone] for redraw instructions. Aerobic Cultureon 08-12-2023 Aerobic Culture Normal [facility] Comment on above: Performed By: #### G S, AERC ####[facility] [address] [place] [address] [facility] Arterial Blood Gason 024 ABG Base Excess -2.6 mmol/L Normal -3.0-3.0 The [facility] Comment on above: Performed By: #### A BG ####Point of Care testing, ABG Frac Inspired O2 50 % Normal The [facility] Comment on above: Performed By: #### A BG ####Point of Care testing, ABG Oxygen Content 5.7 mmol/L Low 6.6-9.7 The [facility] Comment on above: Performed By: #### A BG ####Point of Care testing, ABG Oxygen Saturation 89.9 % Low 95.0-100.0 The [facility] Comment on above: Performed By: #### A BG ####Point of Care testing, ABG PCO2 71.8 mm[Hg] Off scale high 35.0-45.0 [facility] Comment on above: Performed By: #### A BG ####Point of Care testing, ABG PEEP 5 Normal The [facility] Comment on above: Performed By: #### A BG ####Point of Care testing, ABG PH 7.19 Off scale low 7.35-7.45 The [facility] Comment on above: Performed By: #### A BG ####Point of Care testing, ABG PO2 71.6 mm[Hg] Low 80.0-100.0 The [facility] Comment on above: Performed By: #### A BG ####Point of Care testing, ABG TV 500 mL Normal The [facility] Comment on above: Performed By: #### A BG ####Point of Care testing, CO2 [Moles/Vol] 28.7 mmol/L High 23.0-27.0 The [facility] Comment on above: Performed By: #### A BG ####Point of Care testing, HCO3 (Bld) [Moles/Vol] 26.5 mmol/L Normal 23.0-29.0 T he [facility] Comment on above: Performed By: #### A BG ####Point of Care testing, Respiratory Critical Normal The [facility] Comment on above: Result Comment: Crit ical Value called on: 08/12/2023 at 18:08PERFORMED BY:[facility], [place] [phone] MEDICAL DIRECTORJOSEPH GARCIA M.D. Performed By: #### A BG ####Point of Care testing, Set Respiratory Rate 14 Normal The [facility] Comment on above: Performed By: #### A BG ####Point of Care testing, VBG Draw Site Right Brachial Normal The [facility] Comment on above: Performed By: #### A BG ####Point of Care testing, Ventilator Mode AC Normal [facility] Comment on above: Performed By: #### A BG ####Point of Care testing, ABG Base Excess -0.9 mmol/L Normal -3.0-3.0 The [facility] Comment on above: Performed By: #### A BG ####Point of Care testing, ABG Frac Inspired O2 40 % Normal The [facility] Comment on above: Performed By: #### A BG ####Point of Care testing, ABG Oxygen Content 6.2 mmol/L Low 6.6-9.7 The [facility] Comment on above: Performed By: #### A BG ####Point of Care testing, ABG Oxygen Saturation 88.9 % Low 95.0-100.0 The [facility] Comment on above: Performed By: #### A BG ####Point of Care testing, ABG PCO2 31.3 mm[Hg] Low 35.0-45.0 The [facility] Comment on above: Performed By: #### A BG ####Point of Care testing, ABG PEEP 5 Normal The [facility] Comment on above: Performed By: #### A BG ####Point of Care testing, ABG PH 7.47 High 7.35-7.45 The [facility] Comment on above: Performed By: #### A BG ####Point of Care testing, ABG PO2 55.4 mm[Hg] Low 80.0-100.0 The [facility] Comment on above: Performed By: #### A BG ####Point of Care testing, ABG TV 500 mL Normal The [facility] Comment on above: Performed By: #### A BG ####Point of Care testing, CO2 [Moles/Vol] 23.1 mmol/L Normal 23.0-27.0 The [facility] Comment on above: Performed By: #### A BG ####Point of Care testing, HCO3 (Bld) [Moles/Vol] 22.2 mmol/L Low 23.0-29.0 T he [facility] Comment on above: Performed By: #### A BG ####Point of Care testing, Respiratory Critical Normal The [facility] Comment on above: Result Comment: Crit ical Value called on: 08/12/2023 at 04:47PERFORMED BY:[facility], [place] [phone] MEDICAL DIRECTORJOSEPH GARCIA M.D. Performed By: #### A BG ####Point of Care testing, Set Respiratory Rate 14 Normal The [facility] Comment on above: Performed By: #### A BG ####Point of Care testing, VBG Draw Site Right Radial Normal The [facility] Comment on above: Performed By: #### A BG ####Point of Care testing, Ventilator Mode AC Normal [facility] Comment on above: Performed By: #### A BG ####Point of Care testing, Basic Metabolic Panelon 07-24 Anion gap [Moles/Vol] 20.3 mmol/L High 6.0-15.0 Th e [facility] Comment on above: Performed By: #### B MP, DIFF CBC, BHOB ####[address] [place] [id number] [facility] Calcium [Mass/Vol] 7.7 mg/dL Low 8.6-10.3 The [facility] Comment on above: Performed By: #### B MP, DIFF CBC, BHOB ####[address] [place] [id number] [facility] Chloride [Moles/Vol] 90 mmol/L Low 98-107 [facility] Comment on above: Performed By: #### B MP, DIFF CBC, BHOB ####[place] [id number] [facility] CO2 [Moles/Vol] 22.2 mmol/L Normal 21.0-31.0 The [facility] Comment on above: Performed By: #### B MP, DIFF CBC, BHOB ####[place] [id number] [facility] Creatinine [Mass/Vol] 3.80 mg/dL High 0.70-1.30 The [facility] Comment on above: Performed By: #### B MP, DIFF CBC, BHOB ####[place] [id number] [facility] Creatinine Clr Calc Pharmacy 19.66 Normal The [facility] Comment on above: Result Comment: PERF ORMED BY:[address] [place], [place] [phone] MEDICAL SILVIA GARCIA M.D. Performed By: #### B MP, DIFF CBC, BHOB ####[address] [address] [facility] GFR/1.73 sq M.predicted MDRD (S/P/Bld) [Vol rate/Area] 16.213 mL/min/{1.73_m2} Normal The [facility] Comment on above: Performed By: #### B MP, DIFF CBC, BHOB ####[place] [id number] [facility] Glucose [Mass/Vol] 256 mg/dL High 70-100 The [facility] Comment on above: Result Comment: [place] Glucose Reference Range is dependent on time and content of last meal. Glucose of more than 200 mg/dL in a nonstressed, ambulatory subject supports the diagnosis of Diabetes Mellitus. ADA recommended reference range Performed By: #### B MP, DIFF CBC, BHOB ####[facility] [place] [address] [facility] Potassium [Moles/Vol] 4.5 mmol/L Normal 3.5-5.1 The [facility] Comment on above: Performed By: #### B MP, DIFF CBC, BHOB ####[address] [place] [address] [facility] Sodium [Moles/Vol] 128 mmol/L Low 136-145 [facility] Comment on above: Performed By: #### B MP, DIFF CBC, BHOB ####[address] [place] [address] [place] Urea nitrogen [Mass/Vol] 51 mg/dL High 7-25 The [facility] Comment on above: Performed By: #### B MP, DIFF CBC, BHOB ####[address] [place] [address] [facility] Beta Hydroxybuterateon 08-11 Beta Hydroxybuterate 1.50 mmol/L High 0.02-0.27 [facility] Comment on above: Result Comment: PERF ORMED BY:[address] [place], [place] [phone] MEDICAL DIRECTORJOSEPH GARCIA M.D. Performed By: #### B MP, DIFF CBC, BHOB ####[address] [place] [address] [place] Beta hydroxybutyrate [Moles/ volume] in Serum or PlasmaOrdered By: Rancho Kay on 08-12-2023 Beta hydroxybutyrate [Moles/Vol] 1.50 mmol/L 0.02-0.27 [facility] BioFire Not Detectedon 08-11 BioFire Not Detected Not detected Normal Not Detecte T [facility] Comment on above: Result Comment: This is a duplicate RP2.1 COVID (PCR) result to be used for statistical tracking purpose only.PERFORMED BY:[address] [place], [place] [phone] MEDICAL DIRECTORJOSEPH GARCIA M.D. Performed By: #### B IOFIRECOVNOTDE, RESP PANEL UPP. ####[address] C reactive protein [Mass/vol ume] in Serum or PlasmaOrdered By: Morales Mckeon on 08-12-2023 CRP [Mass/Vol] 28.1 mg/dL 0.0-0.5 [facility] C-Reactive Proteinon 024 C-Reactive Protein 28.1 mg/dL High 0.0-0.5 [facility] Comment on above: Result Comment: PERF ORMED BY:[address] [address] [address] [place], [place] [phone] MEDICAL DIRECTORJOSEPH GARCIA M.D. Performed By: #### P ROCALCITONIN ####[facility] ,#### CRP ####[address] COVID-19 Detected/Not Detect edOrdered By: Morales Mckeon on 08-12-2023 SARS-CoV-2 (COVID-19) RNA JONES+non-probe Ql (Nph) Not detected Not Detecte [facility] Comment on above: This is a duplicate RP2.1 COVID (PCR) result to be used for statistical tracking purpose only. CT abdomen pelvis wo conon 0 08-12-2023 CT abdomen pelvis wo con Normal [facility] CT foot LT wo conon 08-12-19 CT foot LT wo con Normal The [facility] Diff and CBCon 08-12-2023 Anisocytosis Ql (Bld) Slight Normal The [facility] Comment on above: Performed By: #### B MP, DIFF CBC, BHOB ####[address] Erythrocyte distribution width (RBC) [Ratio] 17.9 % High 12.0-14.8 [facility] Comment on above: Performed By: #### B MP, DIFF CBC, BHOB ####[address] Hematocrit (Bld) [Volume fraction] 30.9 % Low 38.8-50.0 [facility] Comment on above: Performed By: #### B MP, DIFF CBC, BHOB ####[address] Hemoglobin (Bld) [Mass/Vol] 10.2 g/dL Low 13.0-17.0 [facility] Comment on above: Performed By: #### B MP, DIFF CBC, BHOB ####[address] Lymphocytes/100 WBC (Bld) 1 % Low 18-42 [facility] Comment on above: Performed By: #### B MP, DIFF CBC, BHOB ####[address] MCH (RBC) [Entitic mass] 30.0 pg Normal 27.5-35.2 [facility] Comment on above: Performed By: #### B MP, DIFF CBC, BHOB ####[address] MCV (RBC) [Entitic vol] 90.5 fL Normal 83.5-101 [facility] Comment on above: Performed By: #### B MP, DIFF CBC, BHOB ####[address] Mean Corpuscular HGB Conc 33.1 g/dL Normal 32.5-35.6 [facility] Comment on above: Performed By: #### B MP, DIFF CBC, BHOB ####[address] Metamyelocytes 1 % High 0-0 The [facility] Comment on above: Performed By: #### B MP, DIFF CBC, BHOB ####[address] [address] [facility] Microcytosis Slight Normal The [facility] Comment on above: Performed By: #### B MP, DIFF CBC, BHOB ####[address] [address] [facility] Monocytes/100 WBC (Bld) 8 % Normal 2-11 [facility] Comment on above: Performed By: #### B MP, DIFF CBC, BHOB ####[address] [address] [facility] Myelocytes 1 % High 0-0 [facility] Comment on above: Performed By: #### B MP, DIFF CBC, BHOB ####[address] [address] [facility] Platelet Estimate Increased Normal Normal The [facility] Comment on above: Performed By: #### B MP, DIFF CBC, BHOB ####[address] [address] [facility] Platelet mean volume (Bld) [Entitic vol] 7.1 fL Normal 6.6-10.1 [facility] Comment on above: Result Comment: PERF ORMED BY:[address] [place], [place] [phone] MEDICAL DIRECTORJOSEPH GARCIA M.D. Performed By: #### B MP, DIFF CBC, BHOB ####[place] [id number] [facility] Platelet Morphology Normal Normal Normal The [facility] Comment on above: Result Comment: PERF ORMED BY:[address] [place], [place] [phone] MEDICAL DIRECTORJOSEPH GARCIA M.D. Performed By: #### B MP, DIFF CBC, BHOB ####[address] [address] [facility] Platelets (Bld) [#/Vol] 677 10*3/uL High 150-450 [facility] Comment on above: Performed By: #### B MP, DIFF CBC, BHOB ####[address] [address] [facility] Polychromasia Moderate Normal The [facility] Comment on above: Performed By: #### B MP, DIFF CBC, BHOB ####[address] [address] [facility] RBC (Bld) [#/Vol] 3.41 10*6/uL Low 3.90-5.60 [facility] Comment on above: Performed By: #### B MP, DIFF CBC, BHOB ####[address] [address] [facility] RBC morphology finding Nom (Bld) Normal Normal Normal [facility] Comment on above: Performed By: #### B MP, DIFF CBC, BHOB ####[place] [id number] [facility] Segmented neutrophils/100 WBC (Bld) 90 % High 50-70 [facility] Comment on above: Performed By: #### B MP, DIFF CBC, BHOB ####[address] [address] [facility] Spherocytes Slight Normal [facility] Comment on above: Performed By: #### B MP, DIFF CBC, BHOB ####[place] [id number] [facility] WBC (Bld) [#/Vol] 40.8 10*3/uL High 4.1-10.5 [facility] Comment on above: Performed By: #### B MP, DIFF CBC, BHOB ####[place] [id number] [facility] ECG 12 lead ECGon 08-12-2023 ECG 12 lead ECG Normal [facility] Glucose Poct Glucometerson 0 08-12-2023 Commemt1 Glu2: Cleaned Meter Normal [facility] Comment on above: Result Comment: PERF ORMED BY:[address] [place], [place] [phone] MEDICAL DIRECTORJIANLAN SUN M.D. Performed By: #### G LULS ####Point of Care testing, Glucose [Mass/Vol] 215 mg/dL Normal [facility] Comment on above: Result Comment: [place] om Glucose Reference Range is dependent on time and content of last meal. Glucose of more than 200 mg/dL in a nonstressed, ambulatory subject supports the diagnosis of Diabetes Mellitus. Performed By: #### G LULS ####Point of Care testing, Glucose [Mass/Vol] 213 mg/dL Normal [facility] Comment on above: Result Comment: [place] om Glucose Reference Range is dependent on time and content of last meal. Glucose of more than 200 mg/dL in a nonstressed, ambulatory subject supports the diagnosis of Diabetes Mellitus.PERFORMED BY:[address] [place], [place] [phone] MEDICAL DIRECTORJOSEPH GARCIA M.D. Performed By: #### G LULS ####Point of Care testing, Glucose [Mass/Vol] 353 mg/dL Normal [facility] Comment on above: Result Comment: [place] om Glucose Reference Range is dependent on time and content of last meal. Glucose of more than 200 mg/dL in a nonstressed, ambulatory subject supports the diagnosis of Diabetes Mellitus.PERFORMED BY:[place] [address] [address] [place], [place] [phone] MEDICAL DIRECTORJOSEPH GARCIA M.D. Performed By: #### G LULS ####Point of Care testing, Commemt1 Glu2: Cleaned Meter Normal [facility] Comment on above: Result Comment: PERF ORMED BY:[place] [address] [address] NUÑE[place]ST[place], [place] [phone] MEDICAL DIRECTORJOSEPH GARCIA M.D. Performed By: #### G LULS ####Point of Care testing, Glucose [Mass/Vol] 282 mg/dL Normal [facility] Comment on above: Result Comment: [place] om Glucose Reference Range is dependent on [...] Cells Rare Gram Positive Cocci PERFORMED BY: [facility] [address] [place] [id number] PATHOLOGIST PIPE RECOVERY SPECIALIST JOSEPH GARCIA M.D. Normal [facility] Comment on above: Performed By: #### G S, AERC ####[place] [address] Gram stain for investigation of transfusion reactionOrdered By: Morales Mckeon on 08-12-2023 Microscopic observation Gram stain Nom (Unsp spec) Asperigillus fumigatus [facility] INR in Platelet poor plasma by Coagulation assayOrdered By: Geo Thomas on 08-12-2023 INR Coag (PPP) [Relative time] 1.2 {INR} Normal [facility] Comment on above: INR Therapeutic Rang [...] 4.5 Performed By: #### P T, PTT ####[address] Metamyelocytes/100 WBC Manua l cnt (Bld)Ordered By: Geo Thomas on 08-12-2023 Metamyelocytes/100 WBC (Bld) 1 % 0-0 [facility] Microscopic observation Gram stain Nom (Unsp spec)Ordered By: Morales Mckeon on 08-12-2023 Gram stain for investigation of transfusion reaction Fungal like structure [facility] Gram stain for investigation of transfusion reaction Asperigillus fumigatus [facility] Partial Thromboplastin Timeo n 08-12-2023 aPTT Coag (Bld) [Time] 27.6 s Normal 25.1-36.5 Th e [facility] Comment on above: Result Comment: A he matocrit value greater than 55% may lead to inaccurate results in coagulation testing. Patients having hematocrit values >55% require a special collection tube for coagulation studies. Please contact the laboratory at [phone] for redraw instructions.PERFORMED BY:[place] [address] [address] [place], [place] [phone] MEDICAL DIRECTORJOSEPH GARCIA M.D. Performed By: #### P T, PTT ####[facility] [facility] [place] [address] [facility] Procalcitoninon 08-12-2023 Procalcitonin 1.73 ng/mL High 0.00-0.08 [facility] Comment on above: Result [...] concentrations <2 ng/mL are obtained. Performed at: - [address] [id number] Wagon Washer: Sj Petersen MD, Phone: [phone] BY:[place] [address] [address] NUÑE[place]ST[place], [place] [phone] MEDICAL DIRECTORJOSEPH GARCIA M.D. Performed By: #### P ROCALCITONIN ####[facility] ,#### CRP ####[facility] [place] [address] [facility] Procalcitonin 1.66 ng/mL High 0.00-0.08 [facility] Comment on above: Result [...] concentrations <2 ng/mL are obtained. Performed at: [address] [id number] Wagon Washer: Sj Petersen MD, Phone: [phone] BY:[facility] N[place], [place] [phone] MEDICAL DIRECTORJOSEPH GARCIA M.D. Performed By: #### P ROCALCITONIN ####[facility] , Prothrombin time (PT)Ordered By: Geo Thomas on 08-12-2023 PT Coag (PPP) [Time] 13.6 s High 9.0-12.9 [facility] Comment on above: A hematocrit value g reater than 55% may lead to inaccurate results in coagulation testing. Patients having hematocrit values >55% require a special collection tube for coagulation studies. Please contact the laboratory at [phone] for redraw instructions. Result Comment: A he matocrit value greater than 55% may lead to inaccurate results in coagulation testing. Patients having hematocrit values >55% require a special collection tube for coagulation studies. Please contact the laboratory at [phone] for redraw instructions. Performed By: #### P T, PTT ####[facility] [address] [place] [address] [facility] Respiratory (Upper) Panel, P CRon 08-12-2023 Respiratory (Upper) Panel, PCR Normal [facility] Comment on above: Performed By: #### B IOFIRECOVNOTDE, RESP PANEL UPP. ####[facility] [address] [place] [address] [facility] Respiratory pathogens DNA an d RNA panel - Nasopharynx by JONES with non-probe detectionOrdered By: Morales Mckeon on 08-12-2023 Respiratory pathogens DNA and RNA panel JONES+non-probe (Nph) [facility] Serum procalcitonin measurem entOrdered By: Morales Mckeon on 08-12-2023 Procalcitonin [Mass/Vol] 1.73 ng/mL 0.00-0.08 [facility] Comment on above: A procalcitonin (PCT [...] any concentrations <2 ng/mL are obtained.Performed at: [address] [id number] Director: Sj Petersen MD, Phone: [phone] Spherocytes [Presence] in Bl ood by Light microscopyOrdered By: Geo Thomas on 08-12-2023 Spherocytes LM Ql (Bld) Slight [facility] XR abdomen 1Von 08-12-2023 XR abdomen 1V Normal [facility] XR chest 1V portableon 08-11 XR chest 1V portable Normal [facility] Arterial Blood Gason 024 ABG Base Excess -2.6 mmol/L Normal -3.0-3.0 The [facility] Comment on above: Performed By: #### A BG ####Point of Care testing, ABG Frac Inspired O2 40 % Normal [facility] Comment on above: Performed By: #### A BG ####Point of Care testing, ABG Oxygen Content 6.6 mmol/L Normal 6.6-9.7 [facility] Comment on above: Performed By: #### A BG ####Point of Care testing, ABG Oxygen Saturation 93.8 % Low 95.0-100.0 [facility] Comment on above: Performed By: #### A BG ####Point of Care testing, ABG PCO2 30.0 mm[Hg] Low 35.0-45.0 [facility] Comment on above: Performed By: #### A BG ####Point of Care testing, ABG PEEP 5 Normal [facility] Comment on above: Performed By: #### A BG ####Point of Care testing, ABG PH 7.45 Normal 7.35-7.45 [facility] Comment on above: Performed By: #### A BG ####Point of Care testing, ABG PO2 70.8 mm[Hg] Low 80.0-100.0 [facility] Comment on above: Performed By: #### A BG ####Point of Care testing, ABG TV 500 mL Normal [facility] Comment on above: Performed By: #### A BG ####Point of Care testing, CO2 [Moles/Vol] 21.4 mmol/L Low 23.0-27.0 The [facility] Comment on above: Performed By: #### A BG ####Point of Care testing, HCO3 (Bld) [Moles/Vol] 20.5 mmol/L Low 23.0-29.0 T he [facility] Comment on above: Performed By: #### A BG ####Point of Care testing, Respiratory Critical Normal [facility] Comment on above: Result Comment: Crit ical Value called on: 08/11/2023 at 05:15PERFORMED BY:[address] [place], [place] [phone] MEDICAL DIRECTORJOSEPH GARCIA M.D. Performed By: #### A BG ####Point of Care testing, Set Respiratory Rate 14 Normal [facility] Comment on above: Performed By: #### A BG ####Point of Care testing, VBG Draw Site Left Radial Normal [facility] Comment on above: Performed By: #### A BG ####Point of Care testing, Ventilator Mode AC Normal [facility] Comment on above: Performed By: #### A BG ####Point of Care testing, Bacteria identified Cx Nom ( U)Ordered By: Geo Thomas on 08-11-2023 Urine culture routine Rajiv glabrata [facility] Bacterial blood cultureOrder ed By: Rancho Kay on 08-11-2023 Bacteria identified Cx Nom (Bld) NO GROWTH 5 DAYS [facility] Bacteria identified Cx Nom (Bld) NO GROWTH 5 DAYS [facility] Basic Metabolic Panelon 07-24 Anion gap [Moles/Vol] 17.9 mmol/L High 6.0-15.0 Th e [facility] Comment on above: Performed By: #### B MP, DIFF CBC ####[facility] [id number] [place] [address] [facility] Calcium [Mass/Vol] 7.7 mg/dL Low 8.6-10.3 [facility] Comment on above: Performed By: #### B MP, DIFF CBC ####[facility] Rfc[address] Chloride [Moles/Vol] 89 mmol/L Low 98-107 [facility] Comment on above: Performed By: #### B MP, DIFF CBC ####[place] [address] [address] CO2 [Moles/Vol] 22.9 mmol/L Normal 21.0-31.0 The [facility] Comment on above: Performed By: #### B MP, DIFF CBC ####[place] [address] [address] Creatinine [Mass/Vol] 3.83 mg/dL High 0.70-1.30 [facility] Comment on above: Performed By: #### B MP, DIFF CBC ####[place] [address] [address] Creatinine Clr Calc Pharmacy 19.44 Normal [facility] Comment on above: Result Comment: PERF ORMED BY:[address] [place], [place] [phone] MEDICAL DIRECTORJOSEPH GARCIA M.D. Performed By: #### B MP, DIFF CBC ####[address] GFR/1.73 sq M.predicted MDRD (S/P/Bld) [Vol rate/Area] 16.061 mL/min/{1.73_m2} Normal [facility] Comment on above: Performed By: #### B MP, DIFF CBC ####[address] Glucose [Mass/Vol] 158 mg/dL High 70-100 [facility] Comment on above: Result Comment: [place] Glucose Reference Range is dependent on time and content of last meal. Glucose of more than 200 mg/dL in a nonstressed, ambulatory subject supports the diagnosis of Diabetes Mellitus. ADA recommended reference range Performed By: #### B MP, DIFF CBC ####[address] Potassium [Moles/Vol] 4.8 mmol/L Normal 3.5-5.1 [facility] Comment on above: Performed By: #### B MP, DIFF CBC ####[place] [address] [place] [id number] [facility] Sodium [Moles/Vol] 125 mmol/L Low 136-145 [facility] Comment on above: Performed By: #### B MP, DIFF CBC ####[place] [address] [place] [address] [facility] Urea nitrogen [Mass/Vol] 70 mg/dL High 7-25 [facility] Comment on above: Performed By: #### B MP, DIFF CBC ####[address] [address] [facility] Basophils/100 leukocytes in Blood by Manual countOrdered By: Geo Thomas on 08-11-2023 Basophils/100 WBC (Bld) 0 % Normal 0-2 [facility] Comment on above: Performed By: #### B MP, DIFF CBC ####[place] [id number] [facility] Blood Cultureon 08-11-2023 Bacteria identified Cx Nom (Bld) NO GROWTH 5 DAYS PERFORMED BY: [place] [address] PATHOLOGIST PIPE RECOVERY SPECIALIST JOSEPH GARCIA M.D. Normal [facility] Comment on above: Performed By: #### C UBLD ####[place] [id number] [facility] Bacteria identified Cx Nom (Bld) NO GROWTH 5 DAYS PERFORMED BY: [facility] [address] [place] [address] PATHOLOGIST PIPE RECOVERY SPECIALIST JOSEPH GARCIA M.D. Normal [facility] Comment on above: Performed By: #### C UBLD ####[place] [id number] [facility] Diff and CBCon 08-11-2023 Anisocytosis Ql (Bld) Slight Normal [facility] Comment on above: Performed By: #### B MP, DIFF CBC ####[place] [id number] [place] Eosinophils/100 WBC (Bld) 0 % Low 1-3 [facility] Comment on above: Performed By: #### B MP, DIFF CBC ####[address] Erythrocyte distribution width (RBC) [Ratio] 17.5 % High 12.0-14.8 [facility] Comment on above: Performed By: #### B MP, DIFF CBC ####[address] Hematocrit (Bld) [Volume fraction] 30.8 % Low 38.8-50.0 [facility] Comment on above: Performed By: #### B MP, DIFF CBC ####[address] Hemoglobin (Bld) [Mass/Vol] 10.2 g/dL Low 13.0-17.0 [facility] Comment on above: Performed By: #### B MP, DIFF CBC ####[address] Large Platelets Slight Normal [facility] Comment on above: Result Comment: PERF ORMED BY:[address] LATamikoTracyLUZ [place], [place] [phone] MEDICAL DIRECTORJOSEPH GARCIA M.D. Performed By: #### B MP, DIFF CBC ####[address] Lymphocytes/100 WBC (Bld) 6 % Low 18-42 [facility] Comment on above: Performed By: #### B MP, DIFF CBC ####[address] MCH (RBC) [Entitic mass] 29.8 pg Normal 27.5-35.2 [facility] Comment on above: Performed By: #### B MP, DIFF CBC ####[address] MCV (RBC) [Entitic vol] 89.8 fL Normal 83.5-101 [facility] Comment on above: Performed By: #### B MP, DIFF CBC ####[address] [address] [facility] Mean Corpuscular HGB Conc 33.2 g/dL Normal 32.5-35.6 [facility] Comment on above: Performed By: #### B MP, DIFF CBC ####[address] [address] [facility] Metamyelocytes 3 % High 0-0 [facility] Comment on above: Performed By: #### B MP, DIFF CBC ####[address] [address] [facility] Monocytes/100 WBC (Bld) 12 % High 2-11 [facility] Comment on above: Performed By: #### B MP, DIFF CBC ####[address] [address] [facility] Myelocytes 1 % High 0-0 [facility] Comment on above: Performed By: #### B MP, DIFF CBC ####[place] [id number] [facility] Ovalocytes Slight Normal [facility] Comment on above: Performed By: #### B MP, DIFF CBC ####[address] [address] [facility] Platelet Estimate Increased Normal Normal The [facility] Comment on above: Performed By: #### B MP, DIFF CBC ####[address] [address] [facility] Platelet mean volume (Bld) [Entitic vol] 7.2 fL Normal 6.6-10.1 [facility] Comment on above: Result Comment: PERF ORMED BY:[address] [place], [place] [phone] MEDICAL DIRECTORJOSEPH GARCIA M.D. Performed By: #### B MP, DIFF CBC ####[address] [address] [facility] Platelets (Bld) [#/Vol] 655 10*3/uL High 150-450 [facility] Comment on above: Performed By: #### B MP, DIFF CBC ####[place] [address] [place] [address] [facility] Poikilocytosis Slight Normal [facility] Comment on above: Performed By: #### B MP, DIFF CBC ####[address] [address] [facility] RBC (Bld) [#/Vol] 3.43 10*6/uL Low 3.90-5.60 [facility] Comment on above: Performed By: #### B MP, DIFF CBC ####[address] [address] [facility] Schistocytes Slight Normal [facility] Comment on above: Performed By: #### B MP, DIFF CBC ####[address] [address] [facility] Segmented neutrophils/100 WBC (Bld) 78 % High 50-70 [facility] Comment on above: Performed By: #### B MP, DIFF CBC ####[address] [address] [facility] WBC (Bld) [#/Vol] 22.5 10*3/uL High 4.1-10.5 [facility] Comment on above: Performed By: #### B MP, DIFF CBC ####[address] [address] [facility] Dipstick and Microscopicon 0 08-11-2023 Appearance (U) Turbid Critically abnormal Clear [facility] Comment on above: Order Comment: Name Collection Type:: Santana Catheter Performed By: #### A DDONUAPLUS, CUU ####[address] [address] [facility] Bacteria,Urine 1+ High None Seen [facility] Comment on above: Order Comment: Name Collection Type:: Santana Catheter Performed By: #### A DDONUAPLUS, CUU ####[address] [address] [place] Bilirubin,Urine 2+ High Negative [facility] Comment on above: Order Comment: Name Collection Type:: Santana Catheter Performed By: #### A DDONUAPLUS, CUU ####[address] [address] [facility] Color (U) Dark Yellow Critically abnormal Yellow [facility] Comment on above: Order Comment: Name Collection Type:: Santana Catheter Performed By: #### A DDONUAPLUS, CUU ####[address] [address] [facility] Glucose Ql (U) Normal Normal Normal [facility] Comment on above: Order Comment: Name Collection Type:: Santana Catheter Performed By: #### A DDONUAPLUS, CUU ####[address] [address] [facility] Hyaline Casts,Urine Rare Normal 0-[address] [facility] Comment on above: Order Comment: Name Collection Type:: Santana Catheter Performed By: #### A DDONUAPLUS, CUU ####[address] [address] [facility] Ketones Ql (U) Trace High Negative [facility] Comment on above: Order Comment: Name Collection Type:: Santana Catheter Performed By: #### A DDONUAPLUS, CUU ####[address] [address] [facility] Leukocyte esterase Test strip Ql (U) 3+ High Negative [facility] Comment on above: Order Comment: Name Collection Type:: Santana Catheter Performed By: #### A DDONUAPLUS, CUU ####[address] [address] [facility] Nitrite,Urine Negative Normal Negative [facility] Comment on above: Order Comment: Name Collection Type:: Santana Catheter Performed By: #### A DDONUAPLUS, CUU ####[address] [address] [facility] Occult Blood,Urine 1+ High Negative [facility] Comment on above: Order Comment: Name Collection Type:: Santana Catheter Result Comment: PERF ORMED BY:[address] [place], [place] [phone] MEDICAL DIRECTORJOSEPH GARCIA M.D. Performed By: #### A DDONUAPLUS, CUU ####[address] [address] [facility] Other Casts,Urine None Seen Normal None Seen The [facility] Comment on above: Order Comment: Name Collection Type:: Santana Catheter Performed By: #### A DDONUAPLUS, CUU ####[place] [id number] [facility] pH (U) 5.0 [pH] Normal 5.0-9.0 [facility] Comment on above: Order Comment: Name Collection Type:: Santana Catheter Performed By: #### A DDONUAPLUS, CUU ####[place] [id number] [facility] Protein (U) [Mass/Vol] 300 mg/dL High Negative Th e [facility] Comment on above: Order Comment: Name Collection Type:: Santana Catheter Performed By: #### A DDONUAPLUS, CUU ####[address] [address] [facility] RBC,Urine 3-4 Normal 0-4 [facility] Comment on above: Order Comment: Name Collection Type:: Santana Catheter Performed By: #### A DDONUAPLUS, CUU ####[address] [address] [facility] Renal Epithelial Cells,Urine None Seen Normal 0-1 [facility] Comment on above: Order Comment: Name Collection Type:: Santana Catheter Performed By: #### A DDONUAPLUS, CUU ####[address] [address] [facility] Specificy Marydel,Urine 1.027 Normal 1.001-1.030 [facility] Comment on above: Order Comment: Name Collection Type:: Santana Catheter Performed By: #### A DDONUAPLUS, CUU ####[address] [address] [facility] Squamous Epithelial Cell,Urine 3-4 High 0-2 [facility] Comment on above: Order Comment: Name Collection Type:: Santnaa Catheter Performed By: #### A DDONUAPLUS, CUU ####[place] [id number] [facility] Urobilinogen,Urine Normal Normal Normal [facility] Comment on above: Order Comment: Name Collection Type:: Santana Catheter Performed By: #### A DDONUAPLUS, CUU ####[place] [id number] [facility] WBC,Urine 50-100 High 0-4 [facility] Comment on above: Order Comment: Name Collection Type:: Santana Catheter Performed By: #### A DDONUAPLUS, CUU ####[address] Yeast,Urine 3+ Critically abnormal None Seen [facility] Comment on above: Order Comment: Name Collection Type:: Santana Catheter Result Comment: BUDD ING YEASTPERFORMED BY:[address] [place], [place] [phone] MEDICAL DIRECTORJOSEPH GARCIA M.D. Performed By: #### A DDONUAPLUS, CUU ####[place] [id number] [facility] ECG 12 lead ECGon 08-11-2023 ECG 12 lead ECG Normal [facility] Glucose Poct Glucometerson 0 08-11-2023 Glucose [Mass/Vol] 177 mg/dL Normal [facility] Comment on above: Result Comment: [facility] Glucose Reference Range is dependent on time and content of last meal. Glucose of more than 200 mg/dL in a nonstressed, ambulatory subject supports the diagnosis of Diabetes Mellitus.PERFORMED BY:[address] [place], [place] [phone] MEDICAL DIRECTORJOSEPH GARCIA M.D. Performed By: #### G LULS ####Point of Care testing, Glucose [Mass/Vol] 159 mg/dL Normal [facility] Comment on above: Result Comment: [facility] Glucose Reference Range is dependent on time and content of last meal. Glucose of more than 200 mg/dL in a nonstressed, ambulatory subject supports the diagnosis of Diabetes Mellitus.PERFORMED BY:[facility], [place] [phone] MEDICAL DIRECTORJOSEPH GARCIA M.D. Performed By: #### G LULS ####Point of Care testing, Commemt1 Glu2: Cleaned Meter Normal [facility] Comment on above: Result Comment: PERF ORMED BY:[facility]ON[address] NUÑ[place]ST[place], [place] [phone] MEDICAL DIRECTORJOSEPH GARCIA M.D. Performed By: #### G LULS ####Point of Care testing, Glucose [Mass/Vol] 160 mg/dL Normal [facility] Comment on above: Result Comment: [place] Glucose Reference Range is dependent on time and content of last meal. Glucose of more than 200 mg/dL in a nonstressed, ambulatory subject supports the diagnosis of Diabetes Mellitus. Performed By: #### G LULS ####Point of Care testing, Ovalocyte detectionOrdered B y: Geo Thomas on 08-11-2023 Ovalocytes LM Ql (Bld) Slight [facility] Platelets Large [Presence] i n Blood by Light microscopyOrdered By: Geo Thomas on 08-11-2023 Platelets Large LM Ql (Bld) [facility] Schistocytes [Presence] in B lood by Light microscopyOrdered By: Geo Thomas on 08-11-2023 Schistocytes LM Ql (Bld) Slight [facility] Urine Cultureon 08-11-2023 Bacteria identified Cx Nom (U) ORGANISM: Rajiv glabrata (O:CANGLA) [place] Count >100,000 PERFORMED BY: [facility] [address] [place] [address] PATHOLOGIST PIPE RECOVERY SPECIALIST JOSEPH GARCIA M.D. Normal [facility] Comment on above: Performed By: #### A DDONUAPLUS, CUU ####[facility] [address] [place] [address] [facility] Urine culture routineOrdered By: Geo Thomas on 08-11-2023 Bacteria identified Cx Nom (U) Rajiv glabrata [facility] Urine sediment renal epithel ial cell count by microscopy (number/high power field)Ordered By: Geo Thomas on 08-11-2023 Epithelial cells.renal LM.HPF (Urine sed) [#/Area] None seen [HPF] 0-1 [facility] XR chest 1V portableon 08-10 XR chest 1V portable Normal [facility] Arterial Blood Gason 024 ABG Base Excess -4.7 mmol/L Low -3.0-3.0 [facility] Comment on above: Performed By: #### A BG ####Point of Care testing, ABG Frac Inspired O2 60 % Normal [facility] Comment on above: Performed By: #### A BG ####Point of Care testing, ABG Oxygen Content 6.9 mmol/L Normal 6.6-9.7 [facility] Comment on above: Performed By: #### A BG ####Point of Care testing, ABG Oxygen Saturation 94.4 % Low 95.0-100.0 [facility] Comment on above: Performed By: #### A BG ####Point of Care testing, ABG PCO2 35.0 mm[Hg] Normal 35.0-45.0 [facility] Comment on above: Performed By: #### A BG ####Point of Care testing, ABG PEEP 5 Normal [facility] Comment on above: Performed By: #### A BG ####Point of Care testing, ABG PH 7.37 Normal 7.35-7.45 [facility] Comment on above: Performed By: #### A BG ####Point of Care testing, ABG PO2 75.6 mm[Hg] Low 80.0-100.0 [facility] Comment on above: Performed By: #### A BG ####Point of Care testing, ABG TV 500 mL Normal [facility] Comment on above: Performed By: #### A BG ####Point of Care testing, CO2 [Moles/Vol] 20.9 mmol/L Low 23.0-27.0 [facility] Comment on above: Performed By: #### A BG ####Point of Care testing, HCO3 (Bld) [Moles/Vol] 19.9 mmol/L Low 23.0-29.0 T he [facility] Comment on above: Performed By: #### A BG ####Point of Care testing, Respiratory Critical Normal [facility] Comment on above: Result Comment: Crit ical Value called on: 08/10/2023 at 18:22PERFORMED BY:[facility], [place] [phone] MEDICAL DIRECTORJOSEPH GARCIA M.D. Performed By: #### A BG ####Point of Care testing, Set Respiratory Rate 14 Normal [facility] Comment on above: Performed By: #### A BG ####Point of Care testing, VBG Draw Site Left Radial Normal [facility] Comment on above: Performed By: #### A BG ####Point of Care testing, Ventilator Mode AC Normal [facility] Comment on above: Performed By: #### A BG ####Point of Care testing, ABG Base Excess 1.2 mmol/L Normal -3.0-3.0 [facility] Comment on above: Performed By: #### A BG ####Point of Care testing, ABG Frac Inspired O2 30 % Normal [facility] Comment on above: Performed By: #### A BG ####Point of Care testing, ABG Oxygen Content 6.3 mmol/L Low 6.6-9.7 [facility] Comment on above: Performed By: #### A BG ####Point of Care testing, ABG Oxygen Saturation 87.5 % Low 95.0-100.0 [facility] Comment on above: Performed By: #### A BG ####Point of Care testing, ABG PCO2 34.9 mm[Hg] Low 35.0-45.0 [facility] Comment on above: Performed By: #### A BG ####Point of Care testing, ABG PEEP 5 Normal [facility] Comment on above: Performed By: #### A BG ####Point of Care testing, ABG PH 7.47 High 7.35-7.45 [facility] Comment on above: Performed By: #### A BG ####Point of Care testing, ABG PO2 54.0 mm[Hg] Low 80.0-100.0 [facility] Comment on above: Performed By: #### A BG ####Point of Care testing, ABG TV 500 mL Normal [facility] Comment on above: Performed By: #### A BG ####Point of Care testing, CO2 [Moles/Vol] 25.7 mmol/L Normal 23.0-27.0 [facility] Comment on above: Performed By: #### A BG ####Point of Care testing, HCO3 (Bld) [Moles/Vol] 24.7 mmol/L Normal 23.0-29.0 T [facility] Comment on above: Performed By: #### A BG ####Point of Care testing, Respiratory Critical Normal [facility] Comment on above: Result Comment: Crit ical Value called on: 08/10/2023 at 04:46PERFORMED BY:[place] [id number] [place], [place] [phone] MEDICAL DIRECTORJOSEPH GARCIA M.D. Performed By: #### A BG ####Point of Care testing, Set Respiratory Rate 14 Normal [facility] Comment on above: Performed By: #### A BG ####Point of Care testing, VBG Draw Site Left Radial Normal [facility] Comment on above: Performed By: #### A BG ####Point of Care testing, Ventilator Mode AC Normal [facility] Comment on above: Performed By: #### A BG ####Point of Care testing, Basic Metabolic Panelon 07-24 Anion gap [Moles/Vol] 13.0 mmol/L Normal 6.0-15.0 Th e [facility] Comment on above: Performed By: #### S CAN CBC, BMP ####[place] [address] [place] [id number] [facility] Calcium [Mass/Vol] 7.7 mg/dL Low 8.6-10.3 [facility] Comment on above: Performed By: #### S CAN CBC, BMP ####[place] [id number] [facility] Chloride [Moles/Vol] 90 mmol/L Low 98-107 [facility] Comment on above: Performed By: #### S CAN CBC, BMP ####[place] [id number] [facility] CO2 [Moles/Vol] 27.5 mmol/L Normal 21.0-31.0 [facility] Comment on above: Performed By: #### S CAN CBC, BMP ####[place] [id number] [facility] Creatinine [Mass/Vol] 3.49 mg/dL Significan t change up 0.70-1.30 [facility] Comment on above: Performed By: #### S CAN CBC, BMP ####[place] [id number] [place] Creatinine Clr Calc Pharmacy 21.33 Normal [facility] Comment on above: Result Comment: PERF ORMED BY:[address] [place], [place] [phone] MEDICAL SILVIA GARCIA M.D. Performed By: #### S CAN CBC, BMP ####[address] [address] [place] GFR/1.73 sq M.predicted MDRD (S/P/Bld) [Vol rate/Area] 17.956 mL/min/{1.73_m2} Normal [facility] Comment on above: Performed By: #### S CAN CBC, BMP ####[place] [id number] [facility] Glucose [Mass/Vol] 172 mg/dL High 70-100 [facility] Comment on above: Result Comment: [facility] Glucose Reference Range is dependent on time and content of last meal. Glucose of more than 200 mg/dL in a nonstressed, ambulatory subject supports the diagnosis of Diabetes Mellitus. ADA recommended reference range Performed By: #### S CAN CBC, BMP ####[facility] [address] [place] [address] [facility] Potassium [Moles/Vol] 4.5 mmol/L Normal 3.5-5.1 [facility] Comment on above: Performed By: #### S CAN CBC, BMP ####[facility] [place] [address] [facility] Sodium [Moles/Vol] 126 mmol/L Low 136-145 [facility] Comment on above: Performed By: #### S CAN CBC, BMP ####[facility] [place] [address] [facility] Urea nitrogen [Mass/Vol] 56 mg/dL High 7-25 [facility] Comment on above: Performed By: #### S CAN CBC, BMP ####[facility] [place] [address] [facility] ECG 12 lead ECGon 08-10-2023 ECG 12 lead ECG Normal [facility] Glucose Poct Glucometerson 0 08-10-2023 Commemt1 Glu2: Cleaned Meter Normal [facility] Comment on above: Result Comment: PERF ORMED BY:[address] [place], [place] [phone] MEDICAL DIRECTORJOSEPH GARCIA M.D. Performed By: #### G LULS ####Point of Care testing, Glucose [Mass/Vol] 188 mg/dL Normal [facility] Comment on above: Result Comment: [facility] Glucose Reference Range is dependent on time and content of last meal. Glucose of more than 200 mg/dL in a nonstressed, ambulatory subject supports the diagnosis of Diabetes Mellitus. Performed By: #### G LULS ####Point of Care testing, Commemt1 Glu2: Cleaned Meter Normal [facility] Comment on above: Result Comment: PERF ORMED BY:[place] [address] [place], [place] [phone] MEDICAL DIRECTORJOSEPH GARCIA M.D. Performed By: #### G LULS ####Point of Care testing, Glucose [Mass/Vol] 195 mg/dL Normal [facility] Comment on above: Result Comment: [place] Glucose Reference Range is dependent on time and content of last meal. Glucose of more than 200 mg/dL in a nonstressed, ambulatory subject supports the diagnosis of Diabetes Mellitus. Performed By: #### G LULS ####Point of Care testing, Commemt1 Glu2: Cleaned Meter Normal [facility] Comment on above: Result Comment: PERF ORMED BY:[place] [address] [address] [place], [place] [phone] MEDICAL DIRECTORJOSEPH GARCIA M.D. Performed By: #### G LULS ####Point of Care testing, Glucose [Mass/Vol] 202 mg/dL Normal [facility] Comment on above: Result Comment: [place] Glucose Reference Range is dependent on time and content of last meal. Glucose of more than 200 mg/dL in a nonstressed, ambulatory subject supports the diagnosis of Diabetes Mellitus. Performed By: #### G LULS ####Point of Care testing, Commemt1 Glu2: Cleaned Meter Normal [facility] Comment on above: Result Comment: PERF ORMED BY:[address] [place], [place] [phone] MEDICAL DIRECTORJOSEPH GARCIA M.D. Performed By: #### G LULS ####Point of Care testing, Glucose [Mass/Vol] 178 mg/dL Normal [facility] Comment on above: Result Comment: [place] Glucose Reference Range is dependent on time and content of last meal. Glucose of more than 200 mg/dL in a nonstressed, ambulatory subject supports the diagnosis of Diabetes Mellitus. Performed By: #### G LULS ####Point of Care testing, Scan and CBCon 08-10-2023 Anisocytosis Ql (Bld) Slight Normal [facility] Comment on above: Performed By: #### S CAN CBC, BMP ####[address] Basophils (Bld) [#/Vol] 0.1 10*3/uL Normal 0.0-0.2 [facility] Comment on above: Performed By: #### S CAN CBC, BMP ####[address] Basophils/100 WBC (Bld) 0.5 % Normal . [facility] Comment on above: Performed By: #### S CAN CBC, BMP ####[address] Eosinophils (Bld) [#/Vol] 0.5 10*3/uL High 0.0-0.45 [facility] Comment on above: Performed By: #### S CAN CBC, BMP ####[address] Eosinophils/100 WBC (Bld) 2.5 % Normal . [facility] Comment on above: Performed By: #### S CAN CBC, BMP ####[address] Erythrocyte distribution width (RBC) [Ratio] 17.5 % High 12.0-14.8 [facility] Comment on above: Performed By: #### S CAN CBC, BMP ####[address] Hematocrit (Bld) [Volume fraction] 31.2 % Low 38.8-50.0 [facility] Comment on above: Performed By: #### S CAN CBC, BMP ####[address] Hemoglobin (Bld) [Mass/Vol] 10.2 g/dL Low 13.0-17.0 [facility] Comment on above: Performed By: #### S CAN CBC, BMP ####[address] Lymphocytes (Bld) [#/Vol] 1.4 10*3/uL Normal 1.00-4.8 [facility] Comment on above: Performed By: #### S CAN CBC, BMP ####[address] Lymphocytes/100 WBC (Bld) 7.4 % Normal . [facility] Comment on above: Performed By: #### S CAN CBC, BMP ####[address] MCH (RBC) [Entitic mass] 29.2 pg Normal 27.5-35.2 [facility] Comment on above: Performed By: #### S CAN CBC, BMP ####[address] MCV (RBC) [Entitic vol] 88.9 fL Normal 83.5-101 [facility] Comment on above: Performed By: #### S CAN CBC, BMP ####[address] Mean Corpuscular HGB Conc 32.9 g/dL Normal 32.5-35.6 [facility] Comment on above: Performed By: #### S CAN CBC, BMP ####[address] Monocytes (Bld) [#/Vol] 2.7 10*3/uL High 0.0-0.8 [facility] Comment on above: Performed By: #### S CAN CBC, BMP ####[address] Monocytes/100 WBC (Bld) 13.8 % Normal . [facility] Comment on above: Performed By: #### S CAN CBC, BMP ####[address] Neutrophils (Bld) [#/Vol] 14.7 10*3/uL High 1.8-7.7 [facility] Comment on above: Performed By: #### S CAN CBC, BMP ####[address] Neutrophils/100 WBC (Bld) 75.8 % Normal . [facility] Comment on above: Performed By: #### S CAN CBC, BMP ####[place] [address] [place] [address] [facility] NRBC% 0.0 /100{WBC} Normal 0-0.5 [facility] Comment on above: Performed By: #### S CAN CBC, BMP ####[address] [address] [facility] Platelet Estimate Increased Normal Normal The [facility] Comment on above: Performed By: #### S CAN CBC, BMP ####[place] [address] [place] [address] [facility] Platelet mean volume (Bld) [Entitic vol] 7.3 fL Normal 6.6-10.1 The [facility] Comment on above: Performed By: #### S CAN CBC, BMP ####[address] [address] [facility] Platelet Morphology Normal Normal Normal [facility] Comment on above: Result Comment: PERF ORMED BY:[address] [place], [place] [phone] MEDICAL DIRECTORJOSEPH GARCIA M.D. Performed By: #### S CAN CBC, BMP ####[address] [address] [facility] Platelets (Bld) [#/Vol] 587 10*3/uL High 150-450 [facility] Comment on above: Performed By: #### S CAN CBC, BMP ####[address] [address] [facility] RBC (Bld) [#/Vol] 3.51 10*6/uL Low 3.90-5.60 [facility] Comment on above: Performed By: #### S CAN CBC, BMP ####[address] [address] [facility] WBC (Bld) [#/Vol] 19.4 10*3/uL High 4.1-10.5 [facility] Comment on above: Performed By: #### S CAN CBC, BMP ####[facility] [id number] [place] [id number] [facility] XR abdomen 1Von 08-10-2023 XR abdomen 1V Normal [facility] XR chest 1V portableon 08-09 XR chest 1V portable Normal [facility] Arterial Blood Gason 024 ABG Base Excess 2.3 mmol/L Normal -3.0-3.0 The [facility] Comment on above: Performed By: #### A BG ####Point of Care testing, ABG Frac Inspired O2 40 % Normal [facility] Comment on above: Performed By: #### A BG ####Point of Care testing, ABG Oxygen Content 6.2 mmol/L Low 6.6-9.7 [facility] Comment on above: Performed By: #### A BG ####Point of Care testing, ABG Oxygen Saturation 92.0 % Low 95.0-100.0 [facility] Comment on above: Performed By: #### A BG ####Point of Care testing, ABG PCO2 31.5 mm[Hg] Low 35.0-45.0 [facility] Comment on above: Performed By: #### A BG ####Point of Care testing, ABG PEEP 5 Normal [facility] Comment on above: Performed By: #### A BG ####Point of Care testing, ABG PH 7.52 High 7.35-7.45 [facility] Comment on above: Performed By: #### A BG ####Point of Care testing, ABG PO2 61.0 mm[Hg] Low 80.0-100.0 [facility] Comment on above: Performed By: #### A BG ####Point of Care testing, ABG TV 500 mL Normal [facility] Comment on above: Performed By: #### A BG ####Point of Care testing, CO2 [Moles/Vol] 25.8 mmol/L Normal 23.0-27.0 The [facility] Comment on above: Performed By: #### A BG ####Point of Care testing, HCO3 (Bld) [Moles/Vol] 24.9 mmol/L Normal 23.0-29.0 T he [facility] Comment on above: Performed By: #### A BG ####Point of Care testing, Respiratory Critical Normal [facility] Comment on above: Result Comment: Crit ical Value called on: 08/09/2023 at 04:01PERFORMED BY:[address] [place], [place] [phone] MEDICAL DIRECTORJOSEPH GARCIA M.D. Performed By: #### A BG ####Point of Care testing, Set Respiratory Rate 14 Normal [facility] Comment on above: Performed By: #### A BG ####Point of Care testing, VBG Draw Site Left Radial Normal [facility] Comment on above: Performed By: #### A BG ####Point of Care testing, Ventilator Mode AC Normal The [facility] Comment on above: Performed By: #### A BG ####Point of Care testing, Basic Metabolic Panelon 07-24 Anion gap [Moles/Vol] 13.3 mmol/L Normal 6.0-15.0 Th e [facility] Comment on above: Performed By: #### B MP, CBC ####[address] [address] [facility] Calcium [Mass/Vol] 7.5 mg/dL Low 8.6-10.3 [facility] Comment on above: Performed By: #### B MP, CBC ####[facility] [place] [address] [place] Chloride [Moles/Vol] 91 mmol/L Low 98-107 [facility] Comment on above: Performed By: #### B MP, CBC ####[facility] [place] [address] [facility] CO2 [Moles/Vol] 27.2 mmol/L Normal 21.0-31.0 The [facility] Comment on above: Performed By: #### B MP, CBC ####[place] [address] [place] [id number] [facility] Creatinine [Mass/Vol] 2.81 mg/dL Significan t change up 0.70-1.30 [facility] Comment on above: Performed By: #### B MP, CBC ####[place] [id number] [facility] Creatinine Clr Calc Pharmacy 26.38 Normal [facility] Comment on above: Result Comment: PERF ORMED BY:[address] [place], [place] [phone] MEDICAL DIRECTORJOSEPH GARCIA M.D. Performed By: #### B STARLA, CBC ####[place] [id number] [facility] GFR/1.73 sq M.predicted MDRD (S/P/Bld) [Vol rate/Area] 23.290 mL/min/{1.73_m2} Normal The [facility] Comment on above: Performed By: #### B STARLA, CBC ####[place] [id number] [facility] Glucose [Mass/Vol] 157 mg/dL High 70-100 [facility] Comment on above: Result Comment: [facility] Glucose Reference Range is dependent on time and content of last meal. Glucose of more than 200 mg/dL in a nonstressed, ambulatory subject supports the diagnosis of Diabetes Mellitus. ADA recommended reference range Performed By: #### B STARLA, CBC ####[place] [id number] [facility] Potassium [Moles/Vol] 4.5 mmol/L Normal 3.5-5.1 [facility] Comment on above: Performed By: #### B MP, CBC ####[place] [id number] [facility] Sodium [Moles/Vol] 127 mmol/L Low 136-145 [facility] Comment on above: Performed By: #### B MP, CBC ####[place] [id number] [facility] Urea nitrogen [Mass/Vol] 35 mg/dL High 7-25 [facility] Comment on above: Performed By: #### B MP, CBC ####[address] Complete Blood Count Auto Di ffon 08-09-2023 Basophils (Bld) [#/Vol] 0.1 10*3/uL Normal 0.0-0.2 [facility] Comment on above: Result Comment: PERF ORMED BY:[address] SHAL[place]racyLUZ [place], [place] [phone] MEDICAL DIRECTORJOSEPH GARCIA M.D. Performed By: #### B MP, CBC ####[address] Basophils/100 WBC (Bld) 0.3 % Normal . [facility] Comment on above: Performed By: #### B MP, CBC ####[address] Eosinophils (Bld) [#/Vol] 0.3 10*3/uL Normal 0.0-0.45 [facility] Comment on above: Performed By: #### B MP, CBC ####[address] Eosinophils/100 WBC (Bld) 1.6 % Normal . [facility] Comment on above: Performed By: #### B MP, CBC ####[address] Erythrocyte distribution width (RBC) [Ratio] 18.0 % High 12.0-14.8 [facility] Comment on above: Performed By: #### B MP, CBC ####[address] Hematocrit (Bld) [Volume fraction] 29.0 % Low 38.8-50.0 [facility] [facility] Comment on above: Performed By: #### B MP, CBC ####[address] Hemoglobin (Bld) [Mass/Vol] 9.6 g/dL Low 13.0-17.0 [facility] Comment on above: Performed By: #### B MP, CBC ####[address] Lymphocytes (Bld) [#/Vol] 1.6 10*3/uL Normal 1.00-4.8 [facility] Comment on above: Performed By: #### B MP, CBC ####[address] Lymphocytes/100 WBC (Bld) 8.4 % Normal . [facility] Comment on above: Performed By: #### B MP, CBC ####[address] MCH (RBC) [Entitic mass] 29.4 pg Normal 27.5-35.2 [facility] Comment on above: Performed By: #### B MP, CBC ####[address] MCV (RBC) [Entitic vol] 88.7 fL Normal 83.5-101 [facility] Comment on above: Performed By: #### B MP, CBC ####[address] Mean Corpuscular HGB Conc 33.1 g/dL Normal 32.5-35.6 [facility] Comment on above: Performed By: #### B MP, CBC ####[address] Monocytes (Bld) [#/Vol] 2.6 10*3/uL High 0.0-0.8 [facility] Comment on above: Performed By: #### B MP, CBC ####[address] Monocytes/100 WBC (Bld) 14.1 % Normal . [facility] Comment on above: Result Comment: Abso lute monocytosis is commonly reactive in nature. However, if unexplained, recommend follow-up CBC in 3 months to evaluate for persistence. Performed By: #### B MP, CBC ####[address] Neutrophils (Bld) [#/Vol] 13.9 10*3/uL High 1.8-7.7 [facility] Comment on above: Performed By: #### B MP, CBC ####[place] [id number] [facility] Neutrophils/100 WBC (Bld) 75.6 % Normal . [facility] Comment on above: Performed By: #### B MP, CBC ####[place] [id number] [facility] NRBC% 0.1 /100{WBC} Normal 0-0.5 The [facility] Comment on above: Performed By: #### B MP, CBC ####[place] [id number] [facility] Platelet mean volume (Bld) [Entitic vol] 7.5 fL Normal 6.6-10.1 The [facility] Comment on above: Performed By: #### B MP, CBC ####[place] [id number] [facility] Platelets (Bld) [#/Vol] 512 10*3/uL High 150-450 [facility] Comment on above: Performed By: #### B MP, CBC ####[place] [id number] [facility] RBC (Bld) [#/Vol] 3.27 10*6/uL Low 3.90-5.60 [facility] Comment on above: Performed By: #### B MP, CBC ####[place] [id number] [facility] WBC (Bld) [#/Vol] 18.4 10*3/uL High 4.1-10.5 [facility] Comment on above: Performed By: #### B MP, CBC ####[place] [id number] [facility] ECG 12 lead ECGon 08-09-2023 ECG 12 lead ECG Normal The [facility] Glucose Poct Glucometerson 0 08-09-2023 Commemt1 Glu2: Cleaned Meter Normal [facility] Comment on above: Result Comment: PERF ORMED BY:[place] [address] [place], [place] [phone] MEDICAL DIRECTORJOSEPH GARCIA M.D. Performed By: #### G LULS ####Point of Care testing, Glucose [Mass/Vol] 180 mg/dL Normal The [facility] Comment on above: Result Comment: [place] om Glucose Reference Range is dependent on time and content of last meal. Glucose of more than 200 mg/dL in a nonstressed, ambulatory subject supports the diagnosis of Diabetes Mellitus. Performed By: #### G LULS ####Point of Care testing, Commemt1 Glu2: Cleaned Meter Normal [facility] Comment on above: Result Comment: PERF ORMED BY:[address] [place], [place] [phone] MEDICAL DIRECTORJOSEPH GARCIA M.D. Performed By: #### G LULS ####Point of Care testing, Glucose [Mass/Vol] 171 mg/dL Normal [facility] Comment on above: Result Comment: [place] Glucose Reference Range is dependent on time and content of last meal. Glucose of more than 200 mg/dL in a nonstressed, ambulatory subject supports the diagnosis of Diabetes Mellitus. Performed By: #### G LULS ####Point of Care testing, Commemt1 Glu2: Cleaned Meter Normal [facility] Comment on above: Result Comment: PERF ORMED BY:[address] [place], [place] [phone] MEDICAL DIRECTORJOSEPH GARCIA M.D. Performed By: #### G LULS ####Point of Care testing, Glucose [Mass/Vol] 191 mg/dL Normal [facility] Comment on above: Result Comment: [place] Glucose Reference Range is dependent on time and content of last meal. Glucose of more than 200 mg/dL in a nonstressed, ambulatory subject supports the diagnosis of Diabetes Mellitus. Performed By: #### G LULS ####Point of Care testing, Commemt1 Glu2: Cleaned Meter Normal [facility] Comment on above: Result Comment: PERF ORMED BY:[place] [address] [address] [place]YATracyLUZ [place], [place] [phone] MEDICAL DIRECTORJOSEPH GARCIA M.D. Performed By: #### G VALERY ####Point of Care testing, Glucose [Mass/Vol] 173 mg/dL Normal [facility] Comment on above: Result Comment: [place] Glucose Reference Range is dependent on time and content of last meal. Glucose of more than 200 mg/dL in a nonstressed, ambulatory subject supports the diagnosis of Diabetes Mellitus. Performed By: #### G LULS ####Point of Care testing, Glucose [Mass/Vol] 173 mg/dL Normal The [facility] Comment on above: Result Comment: [place] Glucose Reference Range is dependent on time and content of last meal. Glucose of more than 200 mg/dL in a nonstressed, ambulatory subject supports the diagnosis of Diabetes Mellitus.PERFORMED BY:[address] [place], [place] [phone] MEDICAL DIRECTORJOSEPH GARCIA M.D. Performed By: #### G VALERY ####Point of Care testing, XR chest 1V portableon 08-08 XR chest 1V portable Normal [facility] Arterial Blood Gason 024 ABG Base Excess 2.8 mmol/L Normal -3.0-3.0 The [facility] Comment on above: Performed By: #### A BG ####Point of Care testing, ABG Frac Inspired O2 40 % Normal [facility] Comment on above: Performed By: #### A BG ####Point of Care testing, ABG Oxygen Content 5.7 mmol/L Low 6.6-9.7 The [facility] Comment on above: Performed By: #### A BG ####Point of Care testing, ABG Oxygen Saturation 90.9 % Low 95.0-100.0 [facility] Comment on above: Performed By: #### A BG ####Point of Care testing, ABG PCO2 41.1 mm[Hg] Normal 35.0-45.0 [facility] Comment on above: Performed By: #### A BG ####Point of Care testing, ABG PEEP 5 Normal [facility] Comment on above: Performed By: #### A BG ####Point of Care testing, ABG PH 7.44 Normal 7.35-7.45 [facility] Comment on above: Performed By: #### A BG ####Point of Care testing, ABG PO2 61.0 mm[Hg] Low 80.0-100.0 [facility] Comment on above: Performed By: #### A BG ####Point of Care testing, ABG TV 500 mL Normal [facility] Comment on above: Performed By: #### A BG ####Point of Care testing, CO2 [Moles/Vol] 28.4 mmol/L High 23.0-27.0 The [facility] Comment on above: Performed By: #### A BG ####Point of Care testing, HCO3 (Bld) [Moles/Vol] 27.2 mmol/L Normal 23.0-29.0 T he [facility] Comment on above: Performed By: #### A BG ####Point of Care testing, Respiratory Critical Normal [facility] Comment on above: Result Comment: Crit ical Value called on: 08/08/2023 at 05:24PERFORMED BY:[place] [address] [address] [place], [place] [phone] MEDICAL DIRECTORJOSEPH GARCIA M.D. Performed By: #### A BG ####Point of Care testing, Set Respiratory Rate 14 Normal [facility] Comment on above: Performed By: #### A BG ####Point of Care testing, VBG Draw Site Left Radial Normal The [facility] Comment on above: Performed By: #### A BG ####Point of Care testing, Ventilator Mode AC Normal [facility] Comment on above: Performed By: #### A BG ####Point of Care testing, Basic Metabolic Panelon 07-24 Anion gap [Moles/Vol] 13.8 mmol/L Normal 6.0-15.0 Th e [facility] Comment on above: Performed By: #### B STARLA, CBC ####[place] [id number] [facility] Calcium [Mass/Vol] 7.6 mg/dL Low 8.6-10.3 [facility] Comment on above: Performed By: #### B MP, CBC ####[place] [id number] [facility] Chloride [Moles/Vol] 89 mmol/L Low 98-107 [facility] Comment on above: Performed By: #### B STARLA, CBC ####[place] [id number] [facility] CO2 [Moles/Vol] 27.6 mmol/L Normal 21.0-31.0 The [facility] Comment on above: Performed By: #### B STARLA, CBC ####[place] [id number] [facility] Creatinine [Mass/Vol] 3.67 mg/dL Significan t change up 0.70-1.30 [facility] Comment on above: Performed By: #### B STARLA, CBC ####[place] [id number] [facility] Creatinine Clr Calc Pharmacy 20.63 Normal [facility] Comment on above: Result Comment: PERF ORMED BY:[address] [place], [place] [phone] MEDICAL DIRECTORJOSEPH GARCIA M.D. Performed By: #### B STARLA, CBC ####[place] [id number] [facility] GFR/1.73 sq M.predicted MDRD (S/P/Bld) [Vol rate/Area] 16.905 mL/min/{1.73_m2} Normal The [facility] Comment on above: Performed By: #### B STARLA, CBC ####[place] [id number] [facility] Glucose [Mass/Vol] 176 mg/dL High 70-100 The [facility] Comment on above: Result Comment: [facility] Glucose Reference Range is dependent on time and content of last meal. Glucose of more than 200 mg/dL in a nonstressed, ambulatory subject supports the diagnosis of Diabetes Mellitus. ADA recommended reference range Performed By: #### B MP, CBC ####[address] Potassium [Moles/Vol] 4.4 mmol/L Normal 3.5-5.1 [facility] Comment on above: Performed By: #### B MP, CBC ####[address] Sodium [Moles/Vol] 126 mmol/L Low 136-145 [facility] Comment on above: Performed By: #### B MP, CBC ####[address] Urea nitrogen [Mass/Vol] 45 mg/dL High 7-25 [facility] Comment on above: Performed By: #### B MP, CBC ####[place] [id number] [facility] Complete Blood Count Auto Di ffon 08-08-2023 Basophils (Bld) [#/Vol] 0.1 10*3/uL Normal 0.0-0.2 [facility] Comment on above: Result Comment: PERF ORMED BY:[address] [place], [place] [phone] MEDICAL DIRECTORJOSEPH GARCIA M.D. Performed By: #### B MP, CBC ####[place] [id number] [place] Basophils/100 WBC (Bld) 0.6 % Normal . [facility] Comment on above: Performed By: #### B MP, CBC ####[address] Eosinophils (Bld) [#/Vol] 0.2 10*3/uL Normal 0.0-0.45 [facility] Comment on above: Performed By: #### B MP, CBC ####[address] Eosinophils/100 WBC (Bld) 0.8 % Normal . [facility] Comment on above: Performed By: #### B MP, CBC ####[address] Erythrocyte distribution width (RBC) [Ratio] 18.1 % High 12.0-14.8 [facility] Comment on above: Performed By: #### B MP, CBC ####[address] Hematocrit (Bld) [Volume fraction] 26.9 % Low 38.8-50.0 [facility] Comment on above: Performed By: #### B MP, CBC ####[address] Hemoglobin (Bld) [Mass/Vol] 9.0 g/dL Low 13.0-17.0 [facility] Comment on above: Performed By: #### B MP, CBC ####[address] Lymphocytes (Bld) [#/Vol] 2.0 10*3/uL Normal 1.00-4.8 [facility] Comment on above: Performed By: #### B MP, CBC ####[address] Lymphocytes/100 WBC (Bld) 10.4 % Normal . [facility] Comment on above: Performed By: #### B MP, CBC ####[address] MCH (RBC) [Entitic mass] 29.9 pg Normal 27.5-35.2 [facility] Comment on above: Performed By: #### B MP, CBC ####[address] MCV (RBC) [Entitic vol] 89.1 fL Normal 83.5-101 [facility] Comment on above: Performed By: #### B MP, CBC ####[address] [address] [facility] Mean Corpuscular HGB Conc 33.6 g/dL Normal 32.5-35.6 [facility] Comment on above: Performed By: #### B MP, CBC ####[address] [address] [facility] Monocytes (Bld) [#/Vol] 2.8 10*3/uL High 0.0-0.8 [facility] Comment on above: Performed By: #### B MP, CBC ####[place] [id number] [facility] Monocytes/100 WBC (Bld) 14.6 % Normal . [facility] Comment on above: Performed By: #### B MP, CBC ####[address] [address] [facility] Neutrophils (Bld) [#/Vol] 14.3 10*3/uL High 1.8-7.7 [facility] Comment on above: Performed By: #### B MP, CBC ####[place] [id number] [facility] Neutrophils/100 WBC (Bld) 73.6 % Normal . [facility] Comment on above: Performed By: #### B MP, CBC ####[address] [address] [facility] NRBC% 0.0 /100{WBC} Normal 0-0.5 The [facility] Comment on above: Performed By: #### B MP, CBC ####[address] [address] [facility] Platelet mean volume (Bld) [Entitic vol] 7.9 fL Normal 6.6-10.1 The [facility] Comment on above: Performed By: #### B MP, CBC ####[address] [address] [facility] Platelets (Bld) [#/Vol] 452 10*3/uL High 150-450 [facility] Comment on above: Performed By: #### B MP, CBC ####[address] [address] [facility] RBC (Bld) [#/Vol] 3.02 10*6/uL Low 3.90-5.60 [facility] Comment on above: Performed By: #### B MP, CBC ####[place] [address] [place] [address] [facility] WBC (Bld) [#/Vol] 19.5 10*3/uL High 4.1-10.5 [facility] Comment on above: Performed By: #### B MP, CBC ####[place] [id number] [facility] ECG 12 lead ECGon 08-08-2023 ECG 12 lead ECG Normal [facility] Glucose Poct Glucometerson 0 08-08-2023 Commemt1 Glu2: Cleaned Meter Normal [facility] Comment on above: Performed By: #### G LULS ####Point of Care testing, Commemt2 SLIDING SCALE COVERA Normal [facility] Comment on above: Result Comment: PERF ORMED BY:[address] [place], [place] [phone] MEDICAL DIRECTORJOSEPH GARCIA M.D. Performed By: #### G LULS ####Point of Care testing, Glucose [Mass/Vol] 146 mg/dL Normal [facility] Comment on above: Result Comment: [place] Glucose Reference Range is dependent on time and content of last meal. Glucose of more than 200 mg/dL in a nonstressed, ambulatory subject supports the diagnosis of Diabetes Mellitus. Performed By: #### G LULS ####Point of Care testing, Glucose [Mass/Vol] 176 mg/dL Normal [facility] Comment on above: Result Comment: [place] Glucose Reference Range is dependent on time and content of last meal. Glucose of more than 200 mg/dL in a nonstressed, ambulatory subject supports the diagnosis of Diabetes Mellitus.PERFORMED BY:[place] [address] [address] [place], [place] [phone] MEDICAL DIRECTORJOSEPH GARCIA M.D. Performed By: #### G LULS ####Point of Care testing, Glucose [Mass/Vol] 185 mg/dL Normal [facility] Comment on above: Result Comment: [place] Glucose Reference Range is dependent on time and content of last meal. Glucose of more than 200 mg/dL in a nonstressed, ambulatory subject supports the diagnosis of Diabetes Mellitus.PERFORMED BY:[address] [place] [place], [place] [phone] MEDICAL DIRECTORJOSEPH GARCIA M.D. Performed By: #### G LULS ####Point of Care testing, Commemt1 Glu2: Cleaned Meter Normal [facility] Comment on above: Performed By: #### G LULS ####Point of Care testing, Commemt2 SLIDING SCALE COVERA Normal [facility] Comment on above: Result Comment: PERF ORMED BY:[place] [address] [address] [place] [place], [place] [phone] MEDICAL DIRECTORJOSEPH GARCIA M.D. Performed By: #### G LULS ####Point of Care testing, Glucose [Mass/Vol] 239 mg/dL Normal [facility] Comment on above: Result Comment: [facility] Glucose Reference Range is dependent on time and content of last meal. Glucose of more than 200 mg/dL in a nonstressed, ambulatory subject supports the diagnosis of Diabetes Mellitus. Performed By: #### G LULS ####Point of Care testing, MR head/brain wo conon 08-07 MR head/brain wo con Normal [facility] No Panel InformationOrdered By: Vania Chacon on 08-08-2023 Bedside Glucose #2 Comment Sliding scale covera [facility] Sliding scale covera [facility] XR chest 1V portableon 08-07 XR chest 1V portable Normal [facility] Alanine aminotransferase [En zymatic activity/volume] in Serum or PlasmaOrdered By: Mehul Garrett on 08-07-2023 ALT [Catalytic activity/Vol] 11 U/L Normal 7-52 [facility] Comment on above: Performed By: #### M G, CMP, CBC, PHOS ####[facility] [id number] [place] [address] [facility] Alkaline phosphatase [Enzyma tic activity/volume] in Serum or PlasmaOrdered By: Mehul Garrett on 08-07-2023 ALP [Catalytic activity/Vol] 82 U/L Normal 34-104 [facility] Comment on above: Performed By: #### M G, CMP, CBC, PHOS ####[facility] [id number] [place] [address] [facility] Arterial Blood Gason 024 ABG Base Excess 1.9 mmol/L Normal -3.0-3.0 [facility] Comment on above: Performed By: #### A BG ####Point of Care testing, ABG Frac Inspired O2 40 % Normal [facility] Comment on above: Performed By: #### A BG ####Point of Care testing, ABG Oxygen Content 5.8 mmol/L Low 6.6-9.7 [facility] Comment on above: Performed By: #### A BG ####Point of Care testing, ABG Oxygen Saturation 90.3 % Low 95.0-100.0 [facility] Comment on above: Performed By: #### A BG ####Point of Care testing, ABG PCO2 32.1 mm[Hg] Low 35.0-45.0 [facility] Comment on above: Performed By: #### A BG ####Point of Care testing, ABG PEEP 5 Normal [facility] Comment on above: Performed By: #### A BG ####Point of Care testing, ABG PH 7.50 High 7.35-7.45 [facility] Comment on above: Performed By: #### A BG ####Point of Care testing, ABG PO2 56.6 mm[Hg] Low 80.0-100.0 [facility] Comment on above: Performed By: #### A BG ####Point of Care testing, ABG TV 500 mL Normal [facility] Comment on above: Performed By: #### A BG ####Point of Care testing, CO2 [Moles/Vol] 25.7 mmol/L Normal 23.0-27.0 The [facility] Comment on above: Performed By: #### A BG ####Point of Care testing, HCO3 (Bld) [Moles/Vol] 24.7 mmol/L Normal 23.0-29.0 T he [facility] Comment on above: Performed By: #### A BG ####Point of Care testing, Respiratory Critical Normal [facility] Comment on above: Result Comment: Crit ical Value called on: 08/07/2023 at 04:36PERFORMED BY:[address] [place], [place] [phone] MEDICAL DIRECTORJOSEPH GARCIA M.D. Performed By: #### A BG ####Point of Care testing, Set Respiratory Rate 14 Normal [facility] Comment on above: Performed By: #### A BG ####Point of Care testing, VBG Draw Site Left Radial Normal [facility] Comment on above: Performed By: #### A BG ####Point of Care testing, Aspartate aminotransferase [ Enzymatic activity/volume] in Serum or PlasmaOrdered By: Mehul Garrett on 08-07-2023 AST [Catalytic activity/Vol] 31 U/L Normal 13-39 [facility] Comment on above: Performed By: #### M G, CMP, CBC, PHOS ####[facility] [address] [place] [address] Bilirubin.total [Mass/volume ] in Serum or PlasmaOrdered By: Mehul Garrett on 08-07-2023 Bilirubin [Mass/Vol] 0.4 mg/dL Normal 0.3-1.0 [facility] Comment on above: Performed By: #### M G, CMP, CBC, PHOS ####[facility] [id number] [place], [place] [id number] [facility] Complete Blood Count Auto Di ffon 08-07-2023 Basophils (Bld) [#/Vol] 0.0 10*3/uL Normal 0.0-0.2 [facility] Comment on above: Result Comment: PERF ORMED BY:[address] [place], [place] [phone] MEDICAL DIRECTORJOSEPH GARCIA M.D. Performed By: #### M G, CMP, CBC, PHOS ####[address] Basophils/100 WBC (Bld) 0.4 % Normal . [facility] Comment on above: Performed By: #### M G, CMP, CBC, PHOS ####[address] Eosinophils (Bld) [#/Vol] 0.1 10*3/uL Normal 0.0-0.45 [facility] Comment on above: Performed By: #### M G, CMP, CBC, PHOS ####[address] Eosinophils/100 WBC (Bld) 0.6 % Normal . [facility] Comment on above: Performed By: #### M G, CMP, CBC, PHOS ####[address] Erythrocyte distribution width (RBC) [Ratio] 18.2 % High 12.0-14.8 [facility] Comment on above: Performed By: #### M G, CMP, CBC, PHOS ####[address] Hematocrit (Bld) [Volume fraction] 27.1 % Low 38.8-50.0 [facility] Comment on above: Performed By: #### M G, CMP, CBC, PHOS ####[address] Hemoglobin (Bld) [Mass/Vol] 9.1 g/dL Low 13.0-17.0 [facility] Comment on above: Performed By: #### M G, CMP, CBC, PHOS ####[place] [id number] [place] Lymphocytes (Bld) [#/Vol] 1.5 10*3/uL Normal 1.00-4.8 [facility] Comment on above: Performed By: #### M G, CMP, CBC, PHOS ####[address] Lymphocytes/100 WBC (Bld) 11.6 % Normal . [facility] Comment on above: Performed By: #### M G, CMP, CBC, PHOS ####[address] MCH (RBC) [Entitic mass] 29.3 pg Normal 27.5-35.2 [facility] Comment on above: Performed By: #### M G, CMP, CBC, PHOS ####[address] MCV (RBC) [Entitic vol] 86.8 fL Normal 83.5-101 [facility] Comment on above: Performed By: #### M G, CMP, CBC, PHOS ####[address] Mean Corpuscular HGB Conc 33.7 g/dL Normal 32.5-35.6 [facility] Comment on above: Performed By: #### M G, CMP, CBC, PHOS ####[address] Monocytes (Bld) [#/Vol] 1.9 10*3/uL High 0.0-0.8 [facility] Comment on above: Performed By: #### M G, CMP, CBC, PHOS ####[address] Monocytes/100 WBC (Bld) 14.2 % Normal . [facility] Comment on above: Result Comment: Abso lute monocytosis is commonly reactive in nature. However, if unexplained, recommend follow-up CBC in 3 months to evaluate for persistence. Performed By: #### M G, CMP, CBC, PHOS ####[address] [place] [address] [place] Neutrophils (Bld) [#/Vol] 9.6 10*3/uL High 1.8-7.7 [facility] Comment on above: Performed By: #### M G, CMP, CBC, PHOS ####[address] Neutrophils/100 WBC (Bld) 73.2 % Normal . [facility] Comment on above: Performed By: #### M G, CMP, CBC, PHOS ####[address] NRBC% 0.0 /100{WBC} Normal 0-0.5 [facility] Comment on above: Performed By: #### M G, CMP, CBC, PHOS ####[address] Platelet mean volume (Bld) [Entitic vol] 7.7 fL Normal 6.6-10.1 The [facility] Comment on above: Performed By: #### M G, CMP, CBC, PHOS ####[address] Platelets (Bld) [#/Vol] 392 10*3/uL Normal 150-450 [facility] Comment on above: Performed By: #### M G, CMP, CBC, PHOS ####[address] RBC (Bld) [#/Vol] 3.12 10*6/uL Low 3.90-5.60 [facility] Comment on above: Performed By: #### M G, CMP, CBC, PHOS ####[address] WBC (Bld) [#/Vol] 13.1 10*3/uL High 4.1-10.5 [facility] Comment on above: Performed By: #### M G, CMP, CBC, PHOS ####[address] Comprehensive Metabolic Pane neil 08-07-2023 Albumin [Mass/Vol] 2.3 g/dL Low 3.5-5.7 [facility] Comment on above: Performed By: #### M G, CMP, CBC, PHOS ####[place] [id number] [facility] Anion gap [Moles/Vol] 13.3 mmol/L Normal 6.0-15.0 e [facility] Comment on above: Performed By: #### M G, CMP, CBC, PHOS ####[address] Calcium [Mass/Vol] 7.5 mg/dL Low 8.6-10.3 [facility] Comment on above: Performed By: #### M G, CMP, CBC, PHOS ####[place] [id number] [facility] Chloride [Moles/Vol] 92 mmol/L Low 98-107 [facility] Comment on above: Performed By: #### M G, CMP, CBC, PHOS ####[place] [id number] [facility] CO2 [Moles/Vol] 26.7 mmol/L Normal 21.0-31.0 The [facility] Comment on above: Performed By: #### M G, CMP, CBC, PHOS ####[place] [id number] [facility] Creatinine [Mass/Vol] 2.60 mg/dL Significan t change up 0.70-1.30 [facility] Comment on above: Performed By: #### M G, CMP, CBC, PHOS ####[place] [id number] [facility] Creatinine Clr Calc Pharmacy 29.40 Normal [facility] Comment on above: Performed By: #### M G, CMP, CBC, PHOS ####[place] [id number] [facility] GFR/1.73 sq M.predicted MDRD (S/P/Bld) [Vol rate/Area] 25.565 mL/min/{1.73_m2} Normal The [facility] Comment on above: Performed By: #### M G, CMP, CBC, PHOS ####[place] [address] [place] [id number] [facility] Glucose [Mass/Vol] 180 mg/dL High 70-100 [facility] Comment on above: Result Comment: [place] Glucose Reference Range is dependent on time and content of last meal. Glucose of more than 200 mg/dL in a nonstressed, ambulatory subject supports the diagnosis of Diabetes Mellitus. ADA recommended reference range Performed By: #### M G, CMP, CBC, PHOS ####[place] [address] [place] [id number] [facility] Potassium [Moles/Vol] 4.0 mmol/L Normal 3.5-5.1 [facility] Comment on above: Performed By: #### M G, CMP, CBC, PHOS ####[place] [id number] [facility] Sodium [Moles/Vol] 128 mmol/L Low 136-145 [facility] Comment on above: Performed By: #### M G, CMP, CBC, PHOS ####[place] [id number] [facility] Urea nitrogen [Mass/Vol] 31 mg/dL High 7-25 [facility] Comment on above: Performed By: #### M G, CMP, CBC, PHOS ####[place] [id number] [facility] ECG 12 lead ECGon 08-07-2023 ECG 12 lead ECG Normal [facility] Glucose Poct Glucometerson 0 08-07-2023 Commemt1 Glu2: Cleaned Meter Normal [facility] Comment on above: Performed By: #### G LULS ####Point of Care testing, Commemt2 SLIDING SCALE COVERA Normal [facility] Comment on above: Result Comment: PERF ORMED BY:[address] [place], [place] [phone] MEDICAL DIRECTORJOSEPH GARCIA M.D. Performed By: #### G LULS ####Point of Care testing, Glucose [Mass/Vol] 209 mg/dL Normal [facility] Comment on above: Result Comment: [place] om Glucose Reference Range is dependent on time and content of last meal. Glucose of more than 200 mg/dL in a nonstressed, ambulatory subject supports the diagnosis of Diabetes Mellitus. Performed By: #### G LULS ####Point of Care testing, Glucose [Mass/Vol] 226 mg/dL Normal [facility] Comment on above: Result Comment: [place] om Glucose Reference Range is dependent on time and content of last meal. Glucose of more than 200 mg/dL in a nonstressed, ambulatory subject supports the diagnosis of Diabetes Mellitus.PERFORMED BY:[address] [place], [place] [phone] MEDICAL DIRECTORJOSEPH GARCIA M.D. Performed By: #### G LULS ####Point of Care testing, Glucose [Mass/Vol] 183 mg/dL Normal [facility] Comment on above: Result Comment: [place] om Glucose Reference Range is dependent on time and content of last meal. Glucose of more than 200 mg/dL in a nonstressed, ambulatory subject supports the diagnosis of Diabetes Mellitus.PERFORMED BY:[place] [address] [address] [place], [place] [phone] MEDICAL DIRECTORJOSEPH GARCIA M.D. Performed By: #### G LULS ####Point of Care testing, Commemt1 Glu2: Cleaned Meter Normal [facility] Comment on above: Result Comment: PERF ORMED BY:[place] [address] [address] [place], [place] [phone] MEDICAL DIRECTORJOSEPH GARCIA M.D. Performed By: #### G LULS ####Point of Care testing, Glucose [Mass/Vol] 177 mg/dL Normal [facility] Comment on above: Result Comment: [place] om Glucose Reference Range is dependent on time and content of last meal. Glucose of more than 200 mg/dL in a nonstressed, ambulatory subject supports the diagnosis of Diabetes Mellitus. Performed By: #### G LULS ####Point of Care testing, Magnesium [Mass/volume] in S rene or PlasmaOrdered By: Mehul Garrett on 08-07-2023 Magnesium [Mass/Vol] 2.4 mg/dL Normal 1.9-2.7 [facility] Comment on above: Result Comment: PERF ORMED BY:[address] [place], [place] [phone] MEDICAL DIRECTORJOSEPH GARCIA M.D. Performed By: #### M G, CMP, CBC, PHOS ####[place] [id number] [facility] Phosphoruson 08-07-2023 Phosphate [Mass/Vol] 4.2 mg/dL Normal 2.5-4.5 [facility] Comment on above: Performed By: #### M G, CMP, CBC, PHOS ####[place] [id number] [facility] Protein [Mass/volume] in Ser um or PlasmaOrdered By: Mehul Garrett on 08-07-2023 Protein [Mass/Vol] 6.2 g/dL Low 6.4-8.9 [facility] Comment on above: Performed By: #### M G, CMP, CBC, PHOS ####[place] [id number] [facility] Serum globulin measurement b y calculation (mass/volume)Ordered By: Mehul Garrett on 08-07-2023 Globulin (S) [Mass/Vol] 3.9 g/dL Normal [facility] Comment on above: Performed By: #### M G, CMP, CBC, PHOS ####[place] [id number] [facility] Serum or plasma albumin/glob ulin mass ratioOrdered By: Mehul Garrett on 08-07-2023 Albumin/Globulin [Mass ratio] 0.6 {ratio} [facility] Comment on above: Performed By: #### M G, CMP, CBC, PHOS ####[address] [place] [address] [facility] XR chest 1V portableon 08-06 XR chest 1V portable Normal [facility] Ammonia [Moles/volume] in Pl asmaOrdered By: Mehul Garrett on 08-06-2023 Ammonia (P) [Moles/Vol] 39 umol/L High 11-35 [facility] Comment on above: Order Comment: Comme nt ok to add to morning labs if possible. Result Comment: PERF ORMED BY:[address] [place], [place] [phone] MEDICAL DIRECTORJOSEPH GARCIA M.D. Performed By: #### A MM ####[place] [address] [place] [address] [facility] Arterial Blood Gason 024 ABG Base Excess -1.3 mmol/L Normal -3.0-3.0 The [facility] Comment on above: Performed By: #### A BG ####Point of Care testing, ABG Frac Inspired O2 40 % Normal [facility] Comment on above: Performed By: #### A BG ####Point of Care testing, ABG Oxygen Content 6.3 mmol/L Low 6.6-9.7 [facility] Comment on above: Performed By: #### A BG ####Point of Care testing, ABG Oxygen Saturation 98.7 % Normal 95.0-100.0 [facility] Comment on above: Performed By: #### A BG ####Point of Care testing, ABG PCO2 38.2 mm[Hg] Normal 35.0-45.0 [facility] Comment on above: Performed By: #### A BG ####Point of Care testing, ABG PH 7.40 Normal 7.35-7.45 [facility] Comment on above: Performed By: #### A BG ####Point of Care testing, ABG PO2 131.8 mm[Hg] Off scale high 80.0-100.0 The [facility] Comment on above: Performed By: #### A BG ####Point of Care testing, ABG TV 500 mL Normal [facility] Comment on above: Performed By: #### A BG ####Point of Care testing, CO2 [Moles/Vol] 24.4 mmol/L Normal 23.0-27.0 The [facility] Comment on above: Performed By: #### A BG ####Point of Care testing, HCO3 (Bld) [Moles/Vol] 23.2 mmol/L Normal 23.0-29.0 T [facility] Comment on above: Performed By: #### A BG ####Point of Care testing, Respiratory Critical Normal [facility] Comment on above: Result Comment: Crit ical Value called on: 08/06/2023 at 04:56PERFORMED BY:[address] [place], [place] [phone] MEDICAL DIRECTORJOSEPH GARCIA M.D. Performed By: #### A BG ####Point of Care testing, Set Respiratory Rate 14 Normal [facility] Comment on above: Performed By: #### A BG ####Point of Care testing, VBG Draw Site Right Radial Normal [facility] Comment on above: Performed By: #### A BG ####Point of Care testing, Basic Metabolic Panelon 07-24 Anion gap [Moles/Vol] 16.7 mmol/L High 6.0-15.0 Th e [facility] Comment on above: Performed By: #### D IFF CBC, BMP ####[address] [address] [facility] Calcium [Mass/Vol] 7.6 mg/dL Low 8.6-10.3 [facility] Comment on above: Performed By: #### D IFF CBC, BMP ####[place] [address] [place] [address] [facility] Chloride [Moles/Vol] 94 mmol/L Low 98-107 [facility] Comment on above: Performed By: #### D IFF CBC, BMP ####[place] [id number] [facility] CO2 [Moles/Vol] 22.5 mmol/L Normal 21.0-31.0 The [facility] Comment on above: Performed By: #### D IFF CBC, BMP ####[place] [address] [place] [id number] [facility] Creatinine [Mass/Vol] 3.39 mg/dL High 0.70-1.30 [facility] Comment on above: Performed By: #### D IFF CBC, BMP ####[place] [address] Creatinine Clr Calc Pharmacy 22.55 Normal [facility] Comment on above: Result Comment: PERF ORMED BY:[address] [place], [place] [phone] MEDICAL DIRECTORJOSEPH GARCIA M.D. Performed By: #### D IFF CBC, BMP ####[place] [address] [place] [id number] [facility] GFR/1.73 sq M.predicted MDRD (S/P/Bld) [Vol rate/Area] 18.594 mL/min/{1.73_m2} Normal [facility] Comment on above: Performed By: #### D IFF CBC, BMP ####[place] [address] [place] [id number] [facility] Glucose [Mass/Vol] 175 mg/dL High 70-100 [facility] Comment on above: Result Comment: [facility] Glucose Reference Range is dependent on time and content of last meal. Glucose of more than 200 mg/dL in a nonstressed, ambulatory subject supports the diagnosis of Diabetes Mellitus. ADA recommended reference range Performed By: #### D IFF CBC, BMP ####[place] [address] [place] [id number] [facility] Potassium [Moles/Vol] 4.2 mmol/L Normal 3.5-5.1 [facility] Comment on above: Performed By: #### D IFF CBC, BMP ####[place] [address] [place] [id number] [facility] Sodium [Moles/Vol] 129 mmol/L Low 136-145 [facility] Comment on above: Performed By: #### D IFF CBC, BMP ####[address] Urea nitrogen [Mass/Vol] 49 mg/dL High 7-25 [facility] Comment on above: Performed By: #### D IFF CBC, BMP ####[address] head/brain wo conon 08-05 CT head/brain wo con Normal [facility] Diff and CBCon 08-06-2023 Anisocytosis Ql (Bld) Slight Normal [facility] Comment on above: Performed By: #### D IFF CBC, BMP ####[address] Crenated RBC Slight Normal [facility] Comment on above: Performed By: #### D IFF CBC, BMP ####[address] Dohle Bodies Slight Normal [facility] Comment on above: Performed By: #### D IFF CBC, BMP ####[address] Erythrocyte distribution width (RBC) [Ratio] 17.9 % High 12.0-14.8 [facility] Comment on above: Performed By: #### D IFF CBC, BMP ####[address] Hematocrit (Bld) [Volume fraction] 27.5 % Low 38.8-50.0 [facility] Comment on above: Performed By: #### D IFF CBC, BMP ####[address] Hemoglobin (Bld) [Mass/Vol] 9.3 g/dL Low 13.0-17.0 [facility] Comment on above: Performed By: #### D IFF CBC, BMP ####[address] Lymphocytes/100 WBC (Bld) 17 % Low 18-42 [facility] Comment on above: Performed By: #### D IFF CBC, BMP ####[place] [id number] [facility] MCH (RBC) [Entitic mass] 29.4 pg Normal 27.5-35.2 [facility] Comment on above: Performed By: #### D IFF CBC, BMP ####[place] [id number] [facility] MCV (RBC) [Entitic vol] 86.7 fL Normal 83.5-101 [facility] Comment on above: Performed By: #### D IFF CBC, BMP ####[address] Mean Corpuscular HGB Conc 33.9 g/dL Normal 32.5-35.6 [facility] Comment on above: Performed By: #### D IFF CBC, BMP ####[address] Monocytes/100 WBC (Bld) 7 % Normal 2-11 [facility] Comment on above: Performed By: #### D IFF CBC, BMP ####[address] Myelocytes 2 % High 0-0 [facility] Comment on above: Performed By: #### D IFF CBC, BMP ####[place] [id number] [facility] Platelet Estimate Normal Normal Normal The [facility] Comment on above: Performed By: #### D IFF CBC, BMP ####[place] [id number] [facility] Platelet mean volume (Bld) [Entitic vol] 7.7 fL Normal 6.6-10.1 [facility] Comment on above: Result Comment: PERF ORMED BY:[address] [place], [place] [phone] MEDICAL DIRECTORJOSEPH GARCIA M.D. Performed By: #### D IFF CBC, BMP ####[place] [address] [place] [address] [facility] Platelet Morphology Normal Normal Normal [facility] Comment on above: Result Comment: PERF ORMED BY:[place] [address] [address] [place], [place] [phone] MEDICAL SILVIA GARCIA M.D. Performed By: #### D IFF CBC, BMP ####[address] [address] [facility] Platelets (Bld) [#/Vol] 324 10*3/uL Normal 150-450 [facility] Comment on above: Performed By: #### D IFF CBC, BMP ####[place] [address] [place] [address] [facility] Poikilocytosis Slight Normal [facility] Comment on above: Performed By: #### D IFF CBC, BMP ####[address] [address] [facility] Polychromasia Slight Normal [facility] Comment on above: Performed By: #### D IFF CBC, BMP ####[address] [address] [facility] RBC (Bld) [#/Vol] 3.17 10*6/uL Low 3.90-5.60 [facility] Comment on above: Performed By: #### D IFF CBC, BMP ####[address] [address] [facility] Schistocytes Slight Normal [facility] Comment on above: Performed By: #### D IFF CBC, BMP ####[address] [address] [facility] Segmented neutrophils/100 WBC (Bld) 73 % High 50-70 [facility] Comment on above: Performed By: #### D IFF CBC, BMP ####[address] [address] [facility] WBC (Bld) [#/Vol] 12.5 10*3/uL High 4.1-10.5 [facility] Comment on above: Performed By: #### D IFF CBC, BMP ####[facility] [address] [facility] [place] [address] [place] Dohle bodies detectionOrdere d By: Geo Thomas on 08-06-2023 Dohle body LM Ql (Bld) Slight [facility] ECG 12 lead ECGon 08-06-2023 ECG 12 lead ECG Normal [facility] Glucose Poct Glucometerson 0 08-06-2023 Glucose [Mass/Vol] 129 mg/dL Normal [facility] Comment on above: Result Comment: [place] Glucose Reference Range is dependent on time and content of last meal. Glucose of more than 200 mg/dL in a nonstressed, ambulatory subject supports the diagnosis of Diabetes Mellitus.PERFORMED BY:[address] [place], [place] [phone] MEDICAL DIRECTORJOSEPH GARCIA M.D. Performed By: #### G LULS ####Point of Care testing, Glucose [Mass/Vol] 166 mg/dL Normal [facility] Comment on above: Result Comment: [place] Glucose Reference Range is dependent on time and content of last meal. Glucose of more than 200 mg/dL in a nonstressed, ambulatory subject supports the diagnosis of Diabetes Mellitus.PERFORMED BY:[place] [address] [address] [place], [place] [phone] MEDICAL DIRECTORJOSEPH GARCIA M.D. Performed By: #### G LULS ####Point of Care testing, Glucose [Mass/Vol] 184 mg/dL Normal [facility] Comment on above: Result Comment: [facility] Glucose Reference Range is dependent on time and content of last meal. Glucose of more than 200 mg/dL in a nonstressed, ambulatory subject supports the diagnosis of Diabetes Mellitus.PERFORMED BY:[place] [address] [address] [place], [place] [phone] MEDICAL DIRECTORJOSEPH GARCIA M.D. Performed By: #### G LULS ####Point of Care testing, Peripheral white blood cell differential % bands, microscopic examOrdered By: Geo Thomas on 08-06-2023 Band form neutrophils/100 WBC (Bld) 2 % Normal 0-5 [facility] Comment on above: Performed By: #### D IFF CBC, BMP ####[facility] [id number] [place] [address] [facility] XR chest 1V portableon 08-05 XR chest 1V portable Normal [facility] Arterial Blood Gason 024 ABG Base Excess 0.6 mmol/L Normal -3.0-3.0 [facility] Comment on above: Performed By: #### A BG ####Point of Care testing, ABG Frac Inspired O2 35 % Normal [facility] Comment on above: Performed By: #### A BG ####Point of Care testing, ABG Oxygen Content 6.4 mmol/L Low 6.6-9.7 [facility] Comment on above: Performed By: #### A BG ####Point of Care testing, ABG Oxygen Saturation 94.7 % Low 95.0-100.0 The [facility] Comment on above: Performed By: #### A BG ####Point of Care testing, ABG PCO2 42.8 mm[Hg] Normal 35.0-45.0 The [facility] Comment on above: Performed By: #### A BG ####Point of Care testing, ABG PH 7.40 Normal 7.35-7.45 [facility] Comment on above: Performed By: #### A BG ####Point of Care testing, ABG PO2 75.9 mm[Hg] Low 80.0-100.0 [facility] Comment on above: Performed By: #### A BG ####Point of Care testing, ABG TV 500 mL Normal The [facility] Comment on above: Performed By: #### A BG ####Point of Care testing, CO2 [Moles/Vol] 26.9 mmol/L Normal 23.0-27.0 The [facility] Comment on above: Performed By: #### A BG ####Point of Care testing, HCO3 (Bld) [Moles/Vol] 25.6 mmol/L Normal 23.0-29.0 T he [facility] Comment on above: Performed By: #### A BG ####Point of Care testing, Respiratory Critical Normal [facility] Comment on above: Result Comment: Crit ical Value called on: 08/05/2023 at 04:21PERFORMED BY:[place] [address] [address] [place], [place] [phone] MEDICAL DIRECTORJOSEPH GARCIA M.D. Performed By: #### A BG ####Point of Care testing, Set Respiratory Rate 14 Normal [facility] Comment on above: Performed By: #### A BG ####Point of Care testing, VBG Draw Site Right Radial Normal [facility] Comment on above: Performed By: #### A BG ####Point of Care testing, Basic Metabolic Panelon 07-24 Anion gap [Moles/Vol] 18.6 mmol/L High 6.0-15.0 Th e [facility] Comment on above: Performed By: #### C BC, BMP ####[place] [address] [place] [address] [facility] Calcium [Mass/Vol] 7.9 mg/dL Low 8.6-10.3 [facility] Comment on above: Performed By: #### C BC, BMP ####[place] [address] [place] [address] [facility] Chloride [Moles/Vol] 94 mmol/L Low 98-107 [facility] Comment on above: Performed By: #### C BC, BMP ####[facility] [place] [address] [facility] CO2 [Moles/Vol] 21.6 mmol/L Normal 21.0-31.0 The [facility] Comment on above: Performed By: #### C BC, BMP ####[facility] [place] [address] [facility] Creatinine [Mass/Vol] 2.90 mg/dL Significan t change up 0.70-1.30 [facility] Comment on above: Performed By: #### C BC, BMP ####[address] [address] [facility] [facility] Creatinine Clr Calc Pharmacy 26.36 Normal [facility] Comment on above: Result Comment: PERF ORMED BY:[address] [place], [place] [phone] MEDICAL SILVIA GARCAI M.D. Performed By: #### C BC, BMP ####[place] [id number] [facility] GFR/1.73 sq M.predicted MDRD (S/P/Bld) [Vol rate/Area] 22.425 mL/min/{1.73_m2} Normal The [facility] Comment on above: Performed By: #### C BC, BMP ####[address] Glucose [Mass/Vol] 123 mg/dL High 70-100 The [facility] Comment on above: Result Comment: [place] Glucose Reference Range is dependent on time and content of last meal. Glucose of more than 200 mg/dL in a nonstressed, ambulatory subject supports the diagnosis of Diabetes Mellitus. ADA recommended reference range Performed By: #### C BC, BMP ####[place] [id number] [facility] Potassium [Moles/Vol] 4.2 mmol/L Normal 3.5-5.1 [facility] Comment on above: Performed By: #### C BC, BMP ####[place] [id number] [facility] Sodium [Moles/Vol] 130 mmol/L Low 136-145 [facility] Comment on above: Performed By: #### C BC, BMP ####[place] [id number] [facility] Urea nitrogen [Mass/Vol] 36 mg/dL High 7-25 [facility] Comment on above: Performed By: #### C BC, BMP ####[place] [id number] [facility] Complete Blood Count Auto Di ffon 08-05-2023 Basophils (Bld) [#/Vol] 0.1 10*3/uL Normal 0.0-0.2 [facility] Comment on above: Result Comment: PERF ORMED BY:[address] [place], [place] [phone] MEDICAL DIRECTORJOSEPH GARCIA M.D. Performed By: #### C HIGINIO, BMP ####[address] Basophils/100 WBC (Bld) 0.6 % Normal . [facility] Comment on above: Performed By: #### C HIGINIO, BMP ####[address] Eosinophils (Bld) [#/Vol] 0.0 10*3/uL Normal 0.0-0.45 [facility] Comment on above: Performed By: #### C HIGINIO, BMP ####[address] Eosinophils/100 WBC (Bld) 0.2 % Normal . [facility] Comment on above: Performed By: #### C HIGINIO, BMP ####[address] Erythrocyte distribution width (RBC) [Ratio] 18.0 % High 12.0-14.8 [facility] Comment on above: Performed By: #### C HIGINIO, BMP ####[address] Hematocrit (Bld) [Volume fraction] 27.8 % Low 38.8-50.0 [facility] Comment on above: Performed By: #### C HIGINIO, BMP ####[address] Hemoglobin (Bld) [Mass/Vol] 9.9 g/dL Low 13.0-17.0 [facility] Comment on above: Performed By: #### C HIGINIO, BMP ####[address] Lymphocytes (Bld) [#/Vol] 1.3 10*3/uL Normal 1.00-4.8 [facility] Comment on above: Performed By: #### C HIGINIO, BMP ####[address] Lymphocytes/100 WBC (Bld) 13.6 % Normal . [facility] Comment on above: Performed By: #### C BC, BMP ####[address] MCH (RBC) [Entitic mass] 31.2 pg Normal 27.5-35.2 [facility] Comment on above: Performed By: #### C HIGINIO, BMP ####[address] MCV (RBC) [Entitic vol] 87.6 fL Normal 83.5-101 [facility] Comment on above: Performed By: #### C HIGINIO, BMP ####[address] Mean Corpuscular HGB Conc 35.6 g/dL Normal 32.5-35.6 [facility] Comment on above: Performed By: #### C HIGINIO, BMP ####[address] Monocytes (Bld) [#/Vol] 1.8 10*3/uL High 0.0-0.8 [facility] Comment on above: Performed By: #### C HIGINIO, BMP ####[address] Monocytes/100 WBC (Bld) 18.0 % Normal . [facility] Comment on above: Result Comment: Abso lute monocytosis is commonly reactive in nature. However, if unexplained, recommend follow-up CBC in 3 months to evaluate for persistence. Performed By: #### C BC, BMP ####[address] Neutrophils (Bld) [#/Vol] 6.6 10*3/uL Normal 1.8-7.7 [facility] Comment on above: Performed By: #### C BC, BMP ####[address] [address] [facility] Neutrophils/100 WBC (Bld) 67.6 % Normal . [facility] Comment on above: Performed By: #### C BC, BMP ####[facility] [place] [address] [facility] NRBC% 0.2 /100{WBC} Normal 0-0.5 The [facility] Comment on above: Performed By: #### C BC, BMP ####[place] [address] [place] [address] [facility] Platelet mean volume (Bld) [Entitic vol] 7.7 fL Normal 6.6-10.1 The [facility] Comment on above: Performed By: #### C BC, BMP ####[address] [address] [facility] Platelets (Bld) [#/Vol] 344 10*3/uL Normal 150-450 [facility] Comment on above: Performed By: #### C BC, BMP ####[address] [address] [facility] RBC (Bld) [#/Vol] 3.17 10*6/uL Low 3.90-5.60 The [facility] Comment on above: Performed By: #### C BC, BMP ####[address] [address] [facility] WBC (Bld) [#/Vol] 9.7 10*3/uL Normal 4.1-10.5 [facility] Comment on above: Performed By: #### C BC, BMP ####[address] [address] [facility] ECG 12 lead ECGon 08-05-2023 ECG 12 lead ECG Normal [facility] ECG 12 lead ECG Normal [facility] Glucose Poct Glucometerson 0 08-05-2023 Commemt1 Glu2: Cleaned Meter Normal [facility] Comment on above: Result Comment: PERF ORMED BY:[place] [address] [place] [place], [place] [phone] MEDICAL DIRECTORJOSEPH GARCIA M.D. Performed By: #### G LULS ####Point of Care testing, Glucose [Mass/Vol] 213 mg/dL Normal [facility] Comment on above: Result Comment: [place] om Glucose Reference Range is dependent on time and content of last meal. Glucose of more than 200 mg/dL in a nonstressed, ambulatory subject supports the diagnosis of Diabetes Mellitus. Performed By: #### G LULS ####Point of Care testing, Glucose [Mass/Vol] 199 mg/dL Normal [facility] Comment on above: Result Comment: [place] om Glucose Reference Range is dependent on time and content of last meal. Glucose of more than 200 mg/dL in a nonstressed, ambulatory subject supports the diagnosis of Diabetes Mellitus.PERFORMED BY:[address] [place], [place] [phone] MEDICAL DIRECTORJOSEPH GARCIA M.D. Performed By: #### G LULS ####Point of Care testing, Glucose [Mass/Vol] 172 mg/dL Normal [facility] Comment on above: Result Comment: [place] om Glucose Reference Range is dependent on time and content of last meal. Glucose of more than 200 mg/dL in a nonstressed, ambulatory subject supports the diagnosis of Diabetes Mellitus.PERFORMED BY:[address] [place], [place] [phone] MEDICAL DIRECTORJOSEPH GARCIA M.D. Performed By: #### G LULS ####Point of Care testing, Triglyceride [Mass/volume] i n Serum or PlasmaOrdered By: Orestes Mejia on 08-05-2023 Triglyceride [Mass/Vol] 873 mg/dL High 35-149 [facility] Comment on above: If the triglyceride [...] related calculations cannot be calculated and resulted.PERFORMED BY:[facility] [place], [place] [phone] MEDICAL DIRECTORJOSEPH GARCIA M.D. Performed By: #### T RIG ####[facility] [place] [address] [facility] XR chest 1V portableon 08-04 XR chest 1V portable Normal [facility] SUSANA Reflex Testingon 024 SUSANA with Reflex Positive Critically abnormal Negative [facility] Comment on above: Performed By: #### A NCA PROF, SUSANA RFX ADD ON, GB ####[facility] , Anti-Centromere B Antibodies <0.2 Normal 0.0-0.9 [facility] Comment on above: Performed By: #### A NCA PROF, SUSANA RFX ADD ON, GB ####[facility] , Anti-dsDNA(DBL)Ab 7 Normal 0-9 The [facility] Comment on above: Result Comment: Nega tive <5 Equivocal 5 - 9 Positive >9 Performed By: #### A NCA PROF, SUSANA RFX ADD ON, GB ####[facility] , Anti-TRANSIT AUTHORITY POLICE OFFICER 6.3 High 0.0-0.9 [facility] Comment on above: Performed By: #### A NCA PROF, SUSANA RFX ADD ON, GB ####[facility] , Anti-Juan Antibodies <0.2 Normal 0.0-0.9 [facility] Comment on above: Performed By: #### A NCA PROF, SUSANA RFX ADD ON, GB ####[facility] , Chromatin Antibody <0.2 Normal 0.0-0.9 [facility] Comment on above: Performed By: #### A NCA PROF, SUSANA RFX ADD ON, GB ####[facility] , ANA MARÍA-1 Antibody <0.2 Normal 0.0-0.9 [facility] Comment on above: Performed By: #### A NCA PROF, SUSANA RFX ADD ON, GB ####[facility] , Scleroderma 70 Antibodies <0.2 Normal 0.0-0.9 [facility] Comment on above: Performed By: #### A NCA PROF, SUSANA RFX ADD ON, GB ####[facility] , See Below: Normal . [facility] Comment on above: Result Comment: [...] Sm (anti-Juan) SLE 15 - 30% --------- TRANSIT AUTHORITY POLICE OFFICER Mixed Connective Tissue Disease 95% (U1 nRNP, SLE 30 - 50% anti-ribonucleoprotein) Polymyositis and/or Dermatomyositis 20% --------- Scl-70 (antiDNA Scleroderma (diffuse) 20 - 35% topoisomerase) Crest 13% --------- Ana María-1 Polymyositis and/or Dermatomyositis 20 - 40% --------- Centromere B Scleroderma - Crest variant 80% Performed at: [address] [id number] Wagon Washer: Alvaro Verde PhD, Phone: [phone] Performed By: #### A NCA PROF, SUSANA RFX ADD ON, GB ####[facility] , SS-A/Ro Sjogrens Antibody <0.2 Normal 0.0-0.9 [facility] Comment on above: Performed By: #### A NCA PROF, SUSANA RFX ADD ON, GB ####[facility] , SS-B/La Sjogrens Antibody <0.2 Normal 0.0-0.9 [facility] Comment on above: Performed By: #### A NCA PROF, SUSANA RFX ADD ON, GB ####[facility] , ANCA Profile (ANCA+MPO+PR3)o n 08-04-2023 Antimyeloperoxidase (MPO) Abs <0.2 Normal 0.0-0.9 [facility] Comment on above: Performed By: #### A NCA PROF, SUSANA RFX ADD ON, GB ####[facility] , Atypical pANCA <1:20 Normal Neg:<1:20 The [facility] Comment on above: Result Comment: Plea se Note: Specimen is lipemic. The atypical pANCA pattern has been observed in a significant percentage of patients with ulcerative colitis, primary sclerosing cholangitis and autoimmune hepatitis. Performed By: #### A NCA PROF, SUSANA RFX ADD ON, GB ####[facility] , Cytoplasmic (C-ANCA) <1:20 Normal Neg:<1:20 [facility] Comment on above: Result Comment: Plea se Note: Specimen is lipemic. Performed By: #### A NCA PROF, SUSANA RFX ADD ON, GB ####[facility] , Perinuclear (P-ANCA) <1:20 Normal Neg:<1:20 [facility] Comment on above: Result Comment: Plea se Note: Specimen is lipemic. The presence of positive fluorescence exhibiting P-ANCA or C-ANCA patterns alone is not specific for the diagnosis of Ashlie's Granulomatosis (WG) or microscopic polyangiitis. Decisions about treatment should not be based solely on ANCA IFA results. The International ANCA Group Consensus recommends follow up testing of positive sera with both WA- 3 and MPO-ANCA enzyme immunoassays. As many as 5% serum samples are positive only by EIA. Ref. AM J Clin Pathol 1999;111:507-513. Performed By: #### A NCA PROF, SUSANA RFX ADD ON, GB ####[facility] , Proteinase 3 (PR3) Antibodies <0.2 Normal 0.0-0.9 [facility] Comment on above: Result Comment: PERF ORMED BY:[place] [address] [place], [place] [phone] MEDICAL DIRECTORJOSEPH GARCIA M.D. Performed By: #### A NCA PROF, SUSANA RFX ADD ON, GB ####[facility] , Anti-Glomerular Basement Mem bon 08-04-2023 Anti-Glomerular Basement Memb <0.2 Normal 0.0-0.9 [facility] Comment on above: Result Comment: Perf ormed at: [facility] [address] [id number] Wagon Washer: Sj Petersen MD, Phone: [phone] Performed at: [facility] [id number] Wagon Washer: Alvaro Verde PhD, Phone: [phone] Performed By: #### A NCA PROF, SUSANA RFX ADD ON, GB ####[facility] , Arterial Blood Gason 024 ABG Base Excess -4.0 mmol/L Low -3.0-3.0 The [facility] Comment on above: Performed By: #### A BG ####Point of Care testing, ABG Frac Inspired O2 35 % Normal [facility] Comment on above: Performed By: #### A BG ####Point of Care testing, ABG Oxygen Content 6.0 mmol/L Low 6.6-9.7 [facility] Comment on above: Performed By: #### A BG ####Point of Care testing, ABG Oxygen Saturation 92.1 % Low 95.0-100.0 [facility] Comment on above: Performed By: #### A BG ####Point of Care testing, ABG PCO2 36.5 mm[Hg] Normal 35.0-45.0 [facility] Comment on above: Performed By: #### A BG ####Point of Care testing, ABG PEEP 5 Normal [facility] Comment on above: Performed By: #### A BG ####Point of Care testing, ABG PH 7.37 Normal 7.35-7.45 [facility] Comment on above: Performed By: #### A BG ####Point of Care testing, ABG PO2 66.4 mm[Hg] Low 80.0-100.0 [facility] Comment on above: Performed By: #### A BG ####Point of Care testing, ABG TV 500 mL Normal [facility] Comment on above: Performed By: #### A BG ####Point of Care testing, CO2 [Moles/Vol] 21.8 mmol/L Low 23.0-27.0 The [facility] Comment on above: Performed By: #### A BG ####Point of Care testing, HCO3 (Bld) [Moles/Vol] 20.7 mmol/L Low 23.0-29.0 T [facility] Comment on above: Performed By: #### A BG ####Point of Care testing, Respiratory Critical Normal [facility] Comment on above: Result Comment: Crit ical Value called on: 08/04/2023 at 05:23PERFORMED BY:[place] [address] [place], [place] [phone] MEDICAL DIRECTORJOSEPH GARCIA M.D. Performed By: #### A BG ####Point of Care testing, Set Respiratory Rate 14 Normal [facility] Comment on above: Performed By: #### A BG ####Point of Care testing, VBG Draw Site Right Radial Normal [facility] Comment on above: Performed By: #### A BG ####Point of Care testing, Atypical perinuclear antineu trophil cytoplasmic antibodies measurementOrdered By: Sanket Hammer on 08-04-2023 Neutrophil cytoplasmic Ab.perinuclear.atypica l IF (S) [Titer] <1:20 titer Neg:<1:20 [facility] Comment on above: Please Note: Specime n is lipemic.The atypical pANCA pattern has been observed in asignificant percentage of patients with ulcerative colitis,primary sclerosing cholangitis and autoimmune hepatitis. Basic Metabolic Panelon 07-24 Anion gap [Moles/Vol] Not performed Normal 6.0-15.0 [facility] Comment on above: Performed By: #### C BC, BMP ####[address] [address] [facility] Calcium [Mass/Vol] 7.6 mg/dL Low 8.6-10.3 [facility] Comment on above: Performed By: #### C BC, BMP ####[address] [address] [facility] Chloride [Moles/Vol] 93 mmol/L Low 98-107 [facility] Comment on above: Performed By: #### C BC, BMP ####[address] [address] [facility] CO2 [Moles/Vol] 20.3 mmol/L Low 21.0-31.0 [facility] Comment on above: Performed By: #### C BC, BMP ####[address] [address] [facility] Creatinine [Mass/Vol] 3.43 mg/dL High 0.70-1.30 [facility] Comment on above: Performed By: #### C BC, BMP ####[address] [address] [facility] Creatinine Clr Calc Pharmacy 22.85 Normal [facility] Comment on above: Result Comment: PERF ORMED BY:[place] [address] [address] [place], [place] [phone] MEDICAL DIRECTORJOSEPH GARCIA M.D. Performed By: #### C BC, BMP ####[address] [address] [place] GFR/1.73 sq M.predicted MDRD (S/P/Bld) [Vol rate/Area] 18.334 mL/min/{1.73_m2} Normal [facility] Comment on above: Performed By: #### C BC, BMP ####[place] [id number] [facility] Glucose [Mass/Vol] 131 mg/dL High 70-100 [facility] Comment on above: Result Comment: [place] Glucose Reference Range is dependent on time and content of last meal. Glucose of more than 200 mg/dL in a nonstressed, ambulatory subject supports the diagnosis of Diabetes Mellitus. ADA recommended reference range Performed By: #### C HIGINIO, BMP ####[address] Potassium Normal 3.5-5.1 [facility] Comment on above: Result Comment: Spec imen hemolyzed, redraw requested Performed By: #### C HIGINIO, BMP ####[place] [id number] [facility] Sodium [Moles/Vol] 127 mmol/L Low 136-145 [facility] Comment on above: Performed By: #### C HIGINIO, BMP ####[place] [id number] [facility] Urea nitrogen [Mass/Vol] 51 mg/dL High 7-25 [facility] Comment on above: Performed By: #### C HIGINIO, BMP ####[place] [id number] [facility] Complete Blood Count Auto Di ffon 08-04-2023 Basophils (Bld) [#/Vol] 0.1 10*3/uL Normal 0.0-0.2 [facility] Comment on above: Result Comment: PERF ORMED BY:[address] [place], [place] [phone] MEDICAL SILVIA GARCIA M.D. Performed By: #### C HIGINIO, BMP ####[place] [id number] [facility] Basophils/100 WBC (Bld) 0.9 % Normal . [facility] Comment on above: Performed By: #### C BC, BMP ####[address] Eosinophils (Bld) [#/Vol] 0.0 10*3/uL Normal 0.0-0.45 [facility] Comment on above: Performed By: #### C BC, BMP ####[address] Eosinophils/100 WBC (Bld) 0.3 % Normal . [facility] Comment on above: Performed By: #### C BC, BMP ####[address] Erythrocyte distribution width (RBC) [Ratio] 18.4 % High 12.0-14.8 [facility] Comment on above: Performed By: #### C BC, BMP ####[address] Hematocrit (Bld) [Volume fraction] 29.4 % Low 38.8-50.0 [facility] Comment on above: Performed By: #### C BC, BMP ####[address] Hemoglobin (Bld) [Mass/Vol] 10.3 g/dL Low 13.0-17.0 [facility] Comment on above: Performed By: #### C BC, BMP ####[address] Lymphocytes (Bld) [#/Vol] 0.9 10*3/uL Low 1.00-4.8 [facility] Comment on above: Performed By: #### C BC, BMP ####[address] Lymphocytes/100 WBC (Bld) 8.9 % Normal . [facility] Comment on above: Performed By: #### C BC, BMP ####[address] MCH (RBC) [Entitic mass] 30.9 pg Normal 27.5-35.2 [facility] Comment on above: Performed By: #### C BC, BMP ####[address] MCV (RBC) [Entitic vol] 87.8 fL Normal 83.5-101 [facility] Comment on above: Performed By: #### C BC, BMP ####[address] Mean Corpuscular HGB Conc 35.2 g/dL Normal 32.5-35.6 [facility] Comment on above: Performed By: #### C BC, BMP ####[address] Monocytes (Bld) [#/Vol] 1.8 10*3/uL High 0.0-0.8 [facility] Comment on above: Performed By: #### C BC, BMP ####[address] Monocytes/100 WBC (Bld) 17.9 % Normal . [facility] Comment on above: Performed By: #### C BC, BMP ####[address] Neutrophils (Bld) [#/Vol] 7.4 10*3/uL Normal 1.8-7.7 [facility] Comment on above: Performed By: #### C BC, BMP ####[address] Neutrophils/100 WBC (Bld) 72.0 % Normal . [facility] Comment on above: Performed By: #### C BC, BMP ####[address] NRBC% 0.1 /100{WBC} Normal 0-0.5 [facility] Comment on above: Performed By: #### C BC, BMP ####[address] Platelet mean volume (Bld) [Entitic vol] 8.0 fL Normal 6.6-10.1 [facility] Comment on above: Performed By: #### C BC, BMP ####[place] [address] [place] [id number] [facility] Platelets (Bld) [#/Vol] 335 10*3/uL Normal 150-450 [facility] Comment on above: Performed By: #### C BC, BMP ####[address] RBC (Bld) [#/Vol] 3.35 10*6/uL Low 3.90-5.60 [facility] Comment on above: Performed By: #### C BC, BMP ####[place] [address] [place] [id number] [facility] WBC (Bld) [#/Vol] 10.3 10*3/uL Normal 4.1-10.5 [facility] Comment on above: Performed By: #### C BC, BMP ####[place] [id number] [facility] DNA double strand Ab [Units/ volume] in SerumOrdered By: Sanket Hammer on 08-04-2023 DNA double strand Ab Qn (S) 7 [IU]/mL 0-9 [facility] Comment on above: Negative <5 Equivoca l 5 - 9 Positive >9 ECG 12 lead ECGon 08-04-2023 ECG 12 lead ECG Normal [facility] Glomerular basement membrane Ab [Units/volume] in Serum by ImmunoassayOrdered By: Sanket Hammer on 08-04-2023 Glomerular basement membrane Ab IA Qn (S) <0.2 units 0.0-0.9 [facility] Comment on above: Performed at: BN - L [address] [id number] Director: Sj Petersen MD, Phone: [phone] at: CB - [facility] [address] [id number] Director: Alvaro Verde PhD, Phone: [phone] Glucose Poct Glucometerson 0 08-04-2023 Commemt1 Glu2: Cleaned Meter Normal [facility] Comment on above: Result Comment: PERF ORMED BY:[place] [address] [place] [place], [place] [phone] MEDICAL DIRECTORJOSEPH GARCIA M.D. Performed By: #### G LULS ####Point of Care testing, Glucose [Mass/Vol] 125 mg/dL Normal [facility] Comment on above: Result Comment: [place] om Glucose Reference Range is dependent on time and content of last meal. Glucose of more than 200 mg/dL in a nonstressed, ambulatory subject supports the diagnosis of Diabetes Mellitus. Performed By: #### G LULS ####Point of Care testing, Commemt1 Glu2: Cleaned Meter Normal [facility] Comment on above: Result Comment: PERF ORMED BY:[address] [place], [place] [phone] MEDICAL DIRECTORJOSEPH GARCIA M.D. Performed By: #### G LULS ####Point of Care testing, Glucose [Mass/Vol] 149 mg/dL Normal [facility] Comment on above: Result Comment: [place] om Glucose Reference Range is dependent on time and content of last meal. Glucose of more than 200 mg/dL in a nonstressed, ambulatory subject supports the diagnosis of Diabetes Mellitus. Performed By: #### G LULS ####Point of Care testing, Commemt1 Glu2: Cleaned Meter Normal [facility] Comment on above: Result Comment: PERF ORMED BY:[address] [place], [place] [phone] MEDICAL DIRECTORJOSEPH GARCIA M.D. Performed By: #### G LULS ####Point of Care testing, Glucose [Mass/Vol] 159 mg/dL Normal [facility] Comment on above: Result Comment: Lovell om Glucose Reference Range is dependent on time and content of last meal. Glucose of more than 200 mg/dL in a nonstressed, ambulatory subject supports the diagnosis of Diabetes Mellitus. Performed By: #### G LULS ####Point of Care testing, Myeloperoxidase Ab [Units/vo lume] in Serum by ImmunoassayOrdered By: Sanket Hammer on 08-04-2023 Myeloperoxidase Ab IA Qn (S) <0.2 units 0.0-0.9 [facility] No Panel InformationOrdered By: Sanket Hammer on 08-04-2023 Anti-Nuclear Antibody Interpret See comment . [facility] Comment on above: Autoantibody Disease Association -------- Condition Frequency ---------Antinuclear Antibody, SLE, mixed connectiveDirect (SUSANA-D) tissue diseases ---------dsDNA SLE 40 - 60% ---------Chromatin Drug induced SLE 90% SLE 48 - 97% ---------SSA (Ro) SLE 25 - 35% Sjogren's Syndrome 40 - 70% Lupus 100% ---------SSB (La) SLE 10% Sjogren's Syndrome 30% ---------Sm (anti-Juan) SLE 15 - 30% ---------[employer] OFFICER Mixed Connective Tissue Disease 95%(U1 nRNP, SLE 30 - 50%anti-ribonucleoprotein) Polymyositis and/or Dermatomyositis 20% ---------Scl-70 (antiDNA Scleroderma (diffuse) 20 - 35%topoisomerase) Crest 13% ---------Ana María-1 Polymyositis and/or Dermatomyositis 20 - 40% ---------Centromere B Scleroderma - Crest variant 80%Performed at: - Lab[address] [id number] Director: Alvaro Verde PhD, Phone: [phone] Perinuclear ANCA (p-ANCA) Antibody <1:20 titer Neg:<1:20 [facility] Comment on above: Please Note: Specime n is lipemic.The presence of positive fluorescence exhibiting P-ANCA orC-ANCA patterns alone is not specific for the diagnosis ofWegener's Granulomatosis (WG) or microscopic polyangiitis.Decisions about treatment should not be based solely onANCA IFA results. The International ANCA Group Consensusrecommends follow up testing of positive sera with both WA-3 and MPO-ANCA enzyme immunoassays. As many as 5% serumsamples are positive only by EIA. Ref. AM J Clin Ifcazm8022;111:507-513. [employer] Antibody 6.3 AI 0.0-0.9 [facility] 6.3 AI 0.0-0.9 [facility] <1:20 titer Neg:<1:20 [facility] See comment . [facility] Proteinase 3 Ab [Units/volum e] in Serum by ImmunoassayOrdered By: Sanket Hammer on 08-04-2023 Proteinase 3 Ab IA Qn (S) <0.2 units 0.0-0.9 [facility] Redraw Potassiumon 4 Potassium [Moles/Vol] 4.4 mmol/L Normal 3.5-5.1 [facility] Comment on above: Order Comment: Pleas e draw with a syringe, remove the cap and fill a gold top, then deliver to the lab. MLG Result Comment: PERF ORMED BY:[address] [place], [place] [phone] MEDICAL DIRECTORJOSEPH GARCIA M.D. Performed By: #### R HOLA Tinajero ####[facility] [place] [address] [facility] Scl-70 antibody assayOrdered By: Sanket Hammer on 08-04-2023 SCL-70 extractable nuclear Ab IA Qn (S) <0.2 AI 0.0-0.9 [facility] Serum Ana María-1 extractable nucle ar antibody assay (units/volume)Ordered By: Sanket Hammer on 08-04-2023 Ana María-1 extractable nuclear Ab Qn (S) <0.2 AI 0.0-0.9 [facility] Serum Sjogrens syndrome-A ex tractable nuclear antibody assay (units/volume)Ordered By: Sanket Hammer on 08-04-2023 Sjogrens syndrome-A extractable nuclear Ab Qn (S) <0.2 AI 0.0-0.9 [facility] Serum Sjogrens syndrome-B ex tractable nuclear antibody assay (units/volume)Ordered By: Sanket Hammer on 08-04-2023 Sjogrens syndrome-B extractable nuclear Ab Qn (S) <0.2 AI 0.0-0.9 [facility] Serum Juan extractable nucl ear antigen (MALINDA) antibody assay (units/volume)Ordered By: Sanket Hammer on 08-04-2023 Juan extractable nuclear Ab Qn (S) <0.2 AI 0.0-0.9 [facility] Serum centromere protein B a ntibody assay (units/volume)Ordered By: Sanket Hammer on 08-04-2023 Centromere protein B Ab Qn (S) <0.2 AI 0.0-0.9 [facility] Serum classic neutrophil cyt oplasmic antibody titer by immunofluorescenceOrdered By: Sanket Hammer on 08-04-2023 Neutrophil cytoplasmic Ab.classic IF (S) [Titer] <1:20 titer Neg:<1:20 [facility] Comment on above: Please Note: Specime n is lipemic. Serum or plasma chromatin an tibody assay (units/volume)Ordered By: Sanket Hammer on 08-04-2023 Chromatin Ab Qn <0.2 AI 0.0-0.9 [facility] Serum or plasma free cefurox karolina measurement (mass/volume)Ordered By: Sanket Hammer on 08-04-2023 Cefuroxime free [Mass/Vol] Positive Negative [facility] Vancomycin [Mass/volume] in Serum or PlasmaOrdered By: Socorro Felton on 08-04-2023 Vancomycin [Mass/Vol] 15.7 ug/mL 5.0-20.0 [facility] Comment on above: Last dose: - Vancomycin,Randomon 08-04-19 24 Vancomycin,Random 15.7 ug/mL Normal 5.0-20.0 The [facility] Comment on above: Order Comment: Date of last dose?: 20230803 Time of last dose?: 399 Result Comment: Last dose: -PERFORMED BY:[address] [address] [place] [place], [place] [phone] MEDICAL DIRECTORJOSEPH GARCIA M.D. Performed By: #### V ANCR ####[facility] [place] [id number] [place] [address] [facility] XR chest 1V portableon 08-03 XR chest 1V portable Normal [facility] Arterial Blood Gason 024 ABG Base Excess 0.0 mmol/L Normal -3.0-3.0 [facility] Comment on above: Performed By: #### A BG ####Point of Care testing, ABG Frac Inspired O2 35 % Normal [facility] Comment on above: Performed By: #### A BG ####Point of Care testing, ABG Oxygen Content 5.9 mmol/L Low 6.6-9.7 [facility] Comment on above: Performed By: #### A BG ####Point of Care testing, ABG Oxygen Saturation 92.3 % Low 95.0-100.0 [facility] Comment on above: Performed By: #### A BG ####Point of Care testing, ABG PCO2 35.3 mm[Hg] Normal 35.0-45.0 [facility] Comment on above: Performed By: #### A BG ####Point of Care testing, ABG PEEP 5 Normal [facility] Comment on above: Performed By: #### A BG ####Point of Care testing, ABG PH 7.45 Normal 7.35-7.45 [facility] Comment on above: Performed By: #### A BG ####Point of Care testing, ABG PO2 63.3 mm[Hg] Low 80.0-100.0 [facility] Comment on above: Performed By: #### A BG ####Point of Care testing, ABG TV 500 mL Normal [facility] Comment on above: Performed By: #### A BG ####Point of Care testing, CO2 [Moles/Vol] 24.8 mmol/L Normal 23.0-27.0 [facility] Comment on above: Performed By: #### A BG ####Point of Care testing, HCO3 (Bld) [Moles/Vol] 23.8 mmol/L Normal 23.0-29.0 T [facility] Comment on above: Performed By: #### A BG ####Point of Care testing, Respiratory Critical Normal [facility] Comment on above: Result Comment: Crit ical Value called on: 08/03/2023 at 05:42PERFORMED BY:[address]UÑEZBO[place]ST[place], [place] [phone] MEDICAL DIRECTORJOSEPH GARCIA M.D. Performed By: #### A BG ####Point of Care testing, Set Respiratory Rate 14 Normal [facility] Comment on above: Performed By: #### A BG ####Point of Care testing, VBG Draw Site Left Radial Normal [facility] Comment on above: Performed By: #### A BG ####Point of Care testing, Ventilator Mode AC Normal [facility] Comment on above: Performed By: #### A BG ####Point of Care testing, Basic Metabolic Panelon 07-24 Anion gap [Moles/Vol] 15.7 mmol/L High 6.0-15.0 Th e [facility] Comment on above: Performed By: #### D IFF CBC, BMP ####[address] [address] [facility] Calcium [Mass/Vol] 7.5 mg/dL Low 8.6-10.3 [facility] Comment on above: Performed By: #### D IFF CBC, BMP ####[address] [address] [facility] Chloride [Moles/Vol] 94 mmol/L Low 98-107 [facility] Comment on above: Performed By: #### D IFF CBC, BMP ####[address] [address] [facility] CO2 [Moles/Vol] 22.5 mmol/L Normal 21.0-31.0 The [facility] Comment on above: Performed By: #### D IFF CBC, BMP ####[address] [address] [facility] Creatinine [Mass/Vol] 3.38 mg/dL Significan t change up 0.70-1.30 [facility] Comment on above: Performed By: #### D IFF CBC, BMP ####[address] [place] [address] [facility] Creatinine Clr Calc Pharmacy 23.17 Normal [facility] Comment on above: Result Comment: PERF ORMED BY:[address] [place], [place] [phone] MEDICAL SILVIA GARCIA M.D. Performed By: #### D IFF CBC, BMP ####[address] [place] [address] [facility] GFR/1.73 sq M.predicted MDRD (S/P/Bld) [Vol rate/Area] 18.660 mL/min/{1.73_m2} Normal [facility] Comment on above: Performed By: #### D IFF CBC, BMP ####[address] [place] [id number] [facility] Glucose [Mass/Vol] 131 mg/dL High 70-100 [facility] Comment on above: Result Comment: [place] Glucose Reference Range is dependent on time and content of last meal. Glucose of more than 200 mg/dL in a nonstressed, ambulatory subject supports the diagnosis of Diabetes Mellitus. ADA recommended reference range Performed By: #### D IFF CBC, BMP ####[address] [place] [id number] [facility] Potassium [Moles/Vol] 4.2 mmol/L Normal 3.5-5.1 [facility] Comment on above: Performed By: #### D IFF CBC, BMP ####[address] [address] [facility] Sodium [Moles/Vol] 128 mmol/L Low 136-145 [facility] Comment on above: Performed By: #### D IFF CBC, BMP ####[address] [place] [id number] [facility] Urea nitrogen [Mass/Vol] 38 mg/dL High 7-25 [facility] Comment on above: Performed By: #### D IFF CBC, BMP ####[address] [address] [facility] Diff and CBCon 08-03-2023 Anisocytosis Ql (Bld) Moderate Normal [facility] Comment on above: Performed By: #### D IFF CBC, BMP ####[place] [id number] [facility] Band form neutrophils/100 WBC (Bld) 2 % Normal 0-5 [facility] Comment on above: Performed By: #### D IFF CBC, BMP ####[address] Crenated RBC Slight Normal The [facility] Comment on above: Performed By: #### D IFF CBC, BMP ####[place] [id number] [facility] Erythrocyte distribution width (RBC) [Ratio] 18.9 % High 12.0-14.8 [facility] Comment on above: Performed By: #### D IFF CBC, BMP ####[place] [id number] [facility] Hematocrit (Bld) [Volume fraction] 28.7 % Low 38.8-50.0 [facility] Comment on above: Performed By: #### D IFF CBC, BMP ####[place] [id number] [facility] Hemoglobin (Bld) [Mass/Vol] 9.9 g/dL Low 13.0-17.0 [facility] Comment on above: Performed By: #### D IFF CBC, BMP ####[place] [id number] [facility] Lymphocytes/100 WBC (Bld) 9 % Low 18-42 [facility] Comment on above: Performed By: #### D IFF CBC, BMP ####[place] [id number] [facility] MCH (RBC) [Entitic mass] 30.1 pg Normal 27.5-35.2 [facility] Comment on above: Performed By: #### D IFF CBC, BMP ####[address] [place] [address] [facility] MCV (RBC) [Entitic vol] 87.6 fL Normal 83.5-101 [facility] Comment on above: Performed By: #### D IFF CBC, BMP ####[address] [place] [address] [facility] Mean Corpuscular HGB Conc 34.4 g/dL Normal 32.5-35.6 [facility] Comment on above: Performed By: #### D IFF CBC, BMP ####[address] [place] [address] [facility] Monocytes/100 WBC (Bld) 8 % Normal 2-11 [facility] Comment on above: Performed By: #### D IFF CBC, BMP ####[address] [place] [address] [facility] Nucleated Red Blood Cell 1 /100{WBC} High 0-0 [facility] Comment on above: Performed By: #### D IFF CBC, BMP ####[address] [place] [address] [facility] Platelet Estimate Normal Normal Normal The [facility] Comment on above: Performed By: #### D IFF CBC, BMP ####[address] [place] [address] [facility] Platelet mean volume (Bld) [Entitic vol] 7.7 fL Normal 6.6-10.1 The [facility] Comment on above: Result Comment: PERF ORMED BY:[address] [address] [address] [place], [place] [phone] MEDICAL DIRECTORJOSEPH GARCIA M.D. Performed By: #### D IFF CBC, BMP ####[address] [place] [address] [facility] Platelet Morphology Normal Normal Normal The [facility] Comment on above: Result Comment: PERF ORMED BY:[address] [address] [address] [place], [place] [phone] MEDICAL DIRECTORJOSEPH ArellanoD. Performed By: #### D IFF CBC, BMP ####[address] [place] [address] [facility] Platelets (Bld) [#/Vol] 287 10*3/uL Normal 150-450 [facility] Comment on above: Performed By: #### D IFF CBC, BMP ####[address] [place] [address] [facility] Poikilocytosis Slight Normal [facility] Comment on above: Performed By: #### D IFF CBC, BMP ####[address] [place] [address] [facility] Polychromasia Moderate Normal The [facility] Comment on above: Performed By: #### D IFF CBC, BMP ####[address] [place] [address] [facility] RBC (Bld) [#/Vol] 3.28 10*6/uL Low 3.90-5.60 [facility] Comment on above: Performed By: #### D IFF CBC, BMP ####[address] [address] [facility] Schistocytes Slight Normal The [facility] Comment on above: Performed By: #### D IFF CBC, BMP ####[address] [place] [address] [facility] Segmented neutrophils/100 WBC (Bld) 82 % High 50-70 [facility] Comment on above: Performed By: #### D IFF CBC, BMP ####[address] [address] [facility] Spherocytes Slight Normal [facility] Comment on above: Performed By: #### D IFF CBC, BMP ####[address] [place] [address] [facility] Tear Drop Cells Slight Normal The [facility] Comment on above: Performed By: #### D IFF CBC, BMP ####[address] [address] [facility] WBC (Bld) [#/Vol] 9.6 10*3/uL Normal 4.1-10.5 [facility] Comment on above: Performed By: #### D IFF CBC, BMP ####[place] [address] [place] [address] [facility] ECG 12 lead ECGon 08-03-2023 ECG 12 lead ECG Normal [facility] Glucose Poct Glucometerson 0 08-03-2023 Commemt1 Glu2: Cleaned Meter Normal [facility] Comment on above: Result Comment: PERF ORMED BY:[address] [address] [place] [place], [place] [phone] MEDICAL DIRECTORJOSEPH GARCIA M.D. Performed By: #### G LULS ####Point of Care testing, Glucose [Mass/Vol] 115 mg/dL Normal [facility] Comment on above: Result Comment: [place] om Glucose Reference Range is dependent on time and content of last meal. Glucose of more than 200 mg/dL in a nonstressed, ambulatory subject supports the diagnosis of Diabetes Mellitus. Performed By: #### G LULS ####Point of Care testing, Commemt1 Glu2: Cleaned Meter Normal [facility] Comment on above: Result Comment: PERF ORMED BY:[address] [address] [place] [place], [place] [phone] MEDICAL DIRECTORJOSEPH GARCIA M.D. Performed By: #### G LULS ####Point of Care testing, Glucose [Mass/Vol] 116 mg/dL Normal [facility] Comment on above: Result Comment: [place] om Glucose Reference Range is dependent on time and content of last meal. Glucose of more than 200 mg/dL in a nonstressed, ambulatory subject supports the diagnosis of Diabetes Mellitus. Performed By: #### G LULS ####Point of Care testing, Commemt1 Glu2: Cleaned Meter Normal [facility] Comment on above: Result Comment: PERF ORMED BY:[address] [address] [address] [place], [place] [phone] MEDICAL DIRECTORJOSEPH GARCIA M.D. Performed By: #### G VALERY ####Point of Care testing, Glucose [Mass/Vol] 100 mg/dL Normal [facility] Comment on above: Result Comment: [place] Glucose Reference Range is dependent on time and content of last meal. Glucose of more than 200 mg/dL in a nonstressed, ambulatory subject supports the diagnosis of Diabetes Mellitus. Performed By: #### G LULS ####Point of Care testing, Nucleated RBC/100 WBC Manual cnt (Bld) [Ratio]Ordered By: Geo Thomas on 08-03-2023 Nucleated RBC/100 WBC (Bld) [Ratio] 1 /100{WBC} 0-0 [facility] Teardrop cell detectionOrder ed By: Geo Thomas on 08-03-2023 Dacrocytes LM Ql (Bld) Slight [facility] Triglycerideson 08-03-2023 Triglyceride [Mass/Vol] 286 mg/dL High 35-149 [facility] Comment on above: Result Comment: TRIG ATP III CLASSIFICATION TRIG less than 150 mg/dL Normal TRIG 150-199 mg/dL Borderline high TRIG 200-500 mg/dL High TRIG greater than 500 mg/dL Very high Standard traceable to the Center for Disease Conrtrol and Prevention (CDC) test method.PERFORMED BY:[facility] [place], [place] [phone] MEDICAL DIRECTORJOSEPH GARCIA M.D. Performed By: #### T RIG ####[facility] [place] [address] [facility] XR chest 1V portableon 08-02 XR chest 1V portable Normal [facility] Arterial Blood Gason 024 ABG Base Excess 0.0 mmol/L Normal -3.0-3.0 [facility] Comment on above: Performed By: #### A BG ####Point of Care testing, ABG Frac Inspired O2 35 % Normal [facility] Comment on above: Performed By: #### A BG ####Point of Care testing, ABG Oxygen Content 6.6 mmol/L Normal 6.6-9.7 [facility] Comment on above: Performed By: #### A BG ####Point of Care testing, ABG Oxygen Saturation 93.0 % Low 95.0-100.0 [facility] Comment on above: Performed By: #### A BG ####Point of Care testing, ABG PCO2 36.3 mm[Hg] Normal 35.0-45.0 [facility] Comment on above: Performed By: #### A BG ####Point of Care testing, ABG PEEP 5 Normal [facility] Comment on above: Performed By: #### A BG ####Point of Care testing, ABG PH 7.44 Normal 7.35-7.45 [facility] Comment on above: Performed By: #### A BG ####Point of Care testing, ABG PO2 65.3 mm[Hg] Low 80.0-100.0 [facility] Comment on above: Performed By: #### A BG ####Point of Care testing, ABG TV 500 mL Normal [facility] Comment on above: Performed By: #### A BG ####Point of Care testing, CO2 [Moles/Vol] 25.0 mmol/L Normal 23.0-27.0 The [facility] Comment on above: Performed By: #### A BG ####Point of Care testing, HCO3 (Bld) [Moles/Vol] 23.9 mmol/L Normal 23.0-29.0 T he [facility] Comment on above: Performed By: #### A BG ####Point of Care testing, Respiratory Critical Normal [facility] Comment on above: Result Comment: Crit ical Value called on: 08/02/2023 at 05:47PERFORMED BY:[place] [place], [place] [phone] MEDICAL DIRECTORJOSEPH GARCIA M.D. Performed By: #### A BG ####Point of Care testing, Set Respiratory Rate 14 Normal [facility] Comment on above: Performed By: #### A BG ####Point of Care testing, VBG Draw Site Left Radial Normal [facility] Comment on above: Performed By: #### A BG ####Point of Care testing, Basic Metabolic Panelon 030 Anion gap [Moles/Vol] 15.0 mmol/L Normal 6.0-15.0 e [facility] Comment on above: Performed By: #### B MP, DIFF CBC ####[address] [place] [address] [facility] Calcium [Mass/Vol] 7.8 mg/dL Low 8.6-10.3 [facility] Comment on above: Performed By: #### B MP, DIFF CBC ####[address] [place] [address] [facility] Chloride [Moles/Vol] 95 mmol/L Low 98-107 [facility] Comment on above: Performed By: #### B MP, DIFF CBC ####[address] [address] [facility] CO2 [Moles/Vol] 24.1 mmol/L Normal 21.0-31.0 The [facility] Comment on above: Performed By: #### B MP, DIFF CBC ####[address] [address] [facility] Creatinine [Mass/Vol] 2.71 mg/dL Significan t change up 0.70-1.30 [facility] Comment on above: Performed By: #### B MP, DIFF CBC ####[address] [address] [place] Creatinine Clr Calc Pharmacy 28.90 Normal [facility] Comment on above: Result Comment: PERF ORMED BY:[address] [place], [place] [phone] MEDICAL SILVIA GARCIA M.D. Performed By: #### B MP, DIFF CBC ####[address] [address] [place] GFR/1.73 sq M.predicted MDRD (S/P/Bld) [Vol rate/Area] 24.325 mL/min/{1.73_m2} Normal The [facility] Comment on above: Performed By: #### B MP, DIFF CBC ####[place] [id number] [facility] Glucose [Mass/Vol] 109 mg/dL High 70-100 [facility] Comment on above: Result Comment: [place] Glucose Reference Range is dependent on time and content of last meal. Glucose of more than 200 mg/dL in a nonstressed, ambulatory subject supports the diagnosis of Diabetes Mellitus. ADA recommended reference range Performed By: #### B MP, DIFF CBC ####[place] [id number] [facility] Potassium [Moles/Vol] 4.1 mmol/L Normal 3.5-5.1 [facility] Comment on above: Performed By: #### B MP, DIFF CBC ####[address] Sodium [Moles/Vol] 130 mmol/L Low 136-145 [facility] Comment on above: Performed By: #### B MP, DIFF CBC ####[place] [id number] [facility] Urea nitrogen [Mass/Vol] 23 mg/dL Normal 7-25 [facility] Comment on above: Performed By: #### B MP, DIFF CBC ####[place] [id number] [facility] Diff and CBCon 08-02-2023 Anisocytosis Ql (Bld) Moderate Normal [facility] Comment on above: Performed By: #### B MP, DIFF CBC ####[place] [id number] [facility] Band form neutrophils/100 WBC (Bld) 3 % Normal 0-5 [facility] Comment on above: Performed By: #### B MP, DIFF CBC ####[place] [id number] [facility] Basophils/100 WBC (Bld) 1 % Normal 0-2 [facility] Comment on above: Performed By: #### B MP, DIFF CBC ####[address] [address] [facility] Crenated RBC Slight Normal The [facility] Comment on above: Performed By: #### B MP, DIFF CBC ####[address] Erythrocyte distribution width (RBC) [Ratio] 19.3 % High 12.0-14.8 [facility] Comment on above: Performed By: #### B MP, DIFF CBC ####[address] Hematocrit (Bld) [Volume fraction] 29.6 % Significant change down 38.8-50.0 [facility] Comment on above: Performed By: #### B MP, DIFF CBC ####[address] Hemoglobin (Bld) [Mass/Vol] 9.7 g/dL Low 13.0-17.0 [facility] Comment on above: Performed By: #### B MP, DIFF CBC ####[address] Lymphocytes/100 WBC (Bld) 3 % Low 18-42 [facility] Comment on above: Performed By: #### B MP, DIFF CBC ####[address] MCH (RBC) [Entitic mass] 29.3 pg Normal 27.5-35.2 [facility] Comment on above: Performed By: #### B MP, DIFF CBC ####[address] MCV (RBC) [Entitic vol] 89.0 fL Normal 83.5-101 [facility] Comment on above: Performed By: #### B MP, DIFF CBC ####[address] Mean Corpuscular HGB Conc 32.9 g/dL Normal 32.5-35.6 [facility] Comment on above: Performed By: #### B MP, DIFF CBC ####[address] Monocytes/100 WBC (Bld) 10 % Normal 2-11 [facility] Comment on above: Performed By: #### B MP, DIFF CBC ####[address] [address] [facility] Platelet Estimate Normal Normal Normal The [facility] Comment on above: Performed By: #### B MP, DIFF CBC ####[address] [address] [facility] Platelet mean volume (Bld) [Entitic vol] 7.7 fL Normal 6.6-10.1 [facility] Comment on above: Result Comment: PERF ORMED BY:[address] LATamikoTracyLUZ [place], [place] [phone] MEDICAL DIRECTORJOSEPH GARCIA M.D. Performed By: #### B MP, DIFF CBC ####[place] [id number] [facility] Platelet Morphology Normal Normal Normal The [facility] Comment on above: Result Comment: PERF ORMED BY:[address] [place], [place] [phone] MEDICAL DIRECTORJOSEPH GARCIA M.D. Performed By: #### B MP, DIFF CBC ####[place] [id number] [facility] Platelets (Bld) [#/Vol] 298 10*3/uL Normal 150-450 [facility] Comment on above: Performed By: #### B MP, DIFF CBC ####[address] [address] [facility] Poikilocytosis Slight Normal [facility] Comment on above: Performed By: #### B MP, DIFF CBC ####[place] [id number] [facility] Polychromasia Slight Normal The [facility] Comment on above: Performed By: #### B MP, DIFF CBC ####[address] [address] [facility] RBC (Bld) [#/Vol] 3.32 10*6/uL Low 3.90-5.60 [facility] Comment on above: Performed By: #### B MP, DIFF CBC ####[address] [address] [facility] Schistocytes Slight Normal [facility] Comment on above: Performed By: #### B MP, DIFF CBC ####[address] [address] [facility] Segmented neutrophils/100 WBC (Bld) 83 % High 50-70 [facility] Comment on above: Performed By: #### B MP, DIFF CBC ####[address] [address] [facility] WBC (Bld) [#/Vol] 12.2 10*3/uL High 4.1-10.5 [facility] Comment on above: Performed By: #### B MP, DIFF CBC ####[address] [address] [facility] Dipstick and Microscopicon 0 08-02-2023 Appearance (U) Turbid Critically abnormal Clear [facility] Comment on above: Order Comment: Name Collection Type:: Santana Catheter Performed By: #### A DDONUAPLUS, CUU ####[address] [address] [facility] Bacteria,Urine 1+ High None Seen The [facility] Comment on above: Order Comment: Name Collection Type:: Santana Catheter Performed By: #### A DDONUAPLUS, CUU ####[address] [address] [facility] Bilirubin,Urine 1+ High Negative The [facility] Comment on above: Order Comment: Name Collection Type:: Santana Catheter Performed By: #### A DDONUAPLUS, CUU ####[address] [address] [facility] Coarse Granular Casts,Urine 1-2 High 0-1 [facility] Comment on above: Order Comment: Name Collection Type:: Santana Catheter Performed By: #### A DDONUAPLUS, CUU ####[address] [address] [facility] Color (U) Dark Yellow Critically abnormal Yellow [facility] Comment on above: Order Comment: Name Collection Type:: Santana Catheter Performed By: #### A DDONUAPLUS, CUU ####[place] [address] [place] [address] [facility] Fine Granular Casts,Urine 3-4 High 0-1 [facility] Comment on above: Order Comment: Name Collection Type:: Santana Catheter Performed By: #### A DDONUAPLUS, CUU ####[place] [address] [place] [address] [facility] Glucose Ql (U) Normal Normal Normal The [facility] Comment on above: Order Comment: Name Collection Type:: Santana Catheter Performed By: #### A DDONUAPLUS, CUU ####[address] [address] [facility] Hyaline Casts,Urine 0-1 Normal 0-[address] [facility] Comment on above: Order Comment: Name Collection Type:: Santana Catheter Performed By: #### A DDONUAPLUS, CUU ####[address] [address] [place] Ketones Ql (U) Trace High Negative The [facility] Comment on above: Order Comment: Name Collection Type:: Santana Catheter Performed By: #### A DDONUAPLUS, CUU ####[address] [address] [facility] Leukocyte esterase Test strip Ql (U) 2+ High Negative [facility] Comment on above: Order Comment: Name Collection Type:: Santana Catheter Performed By: #### A DDONUAPLUS, CUU ####[place] [address] [place] [address] [place] Nitrite,Urine Negative Normal Negative The [facility] Comment on above: Order Comment: Name Collection Type:: Santana Catheter Performed By: #### A DDONUAPLUS, CUU ####[place] [address] [place] [address] [place] Occult Blood,Urine Trace High Negative The [facility] Comment on above: Order Comment: Name Collection Type:: Santana Catheter Result Comment: PERF ORMED BY:[place] [address] [place] [place], [place] [phone] MEDICAL DIRECTORJOSEPH GARCIA M.D. Performed By: #### A DDONUAPLUS, CUU ####[address] [address] [facility] Other Casts,Urine None Seen Normal None Seen The [facility] Comment on above: Order Comment: Name Collection Type:: Santana Catheter Performed By: #### A DDONUAPLUS, CUU ####[address] [address] [facility] pH (U) 5.0 [pH] Normal 5.0-9.0 [facility] Comment on above: Order Comment: Name Collection Type:: Santana Catheter Performed By: #### A DDONUAPLUS, CUU ####[address] [address] [facility] Protein (U) [Mass/Vol] 300 mg/dL High Negative Th e [facility] Comment on above: Order Comment: Name Collection Type:: Santana Catheter Performed By: #### A DDONUAPLUS, CUU ####[place] [id number] [facility] RBC,Urine 3-4 Normal 0-4 [facility] Comment on above: Order Comment: Name Collection Type:: Santana Catheter Performed By: #### A DDONUAPLUS, CUU ####[address] [address] [facility] Specificy Marydel,Urine 1.027 Normal 1.001-1.030 [facility] Comment on above: Order Comment: Name Collection Type:: Santana Catheter Performed By: #### A DDONUAPLUS, CUU ####[address] [address] [facility] Squamous Epithelial Cell,Urine 10-19 High 0-2 [facility] Comment on above: Order Comment: Name Collection Type:: Santana Catheter Performed By: #### A DDONUAPLUS, CUU ####[facility] [place] [address] [facility] Urobilinogen,Urine Normal Normal Normal [facility] Comment on above: Order Comment: Name Collection Type:: Santana Catheter Performed By: #### A DDONUAPLUS, CUU ####[facility] [place] [address] [facility] Waxy Casts,Urine 0-1 High None Seen The [facility] Comment on above: Order Comment: Name Collection Type:: Santana Catheter Performed By: #### A DDONUAPLUS, CUU ####[place] [address] [place] [address] [facility] WBC,Urine Innumerable High 0-4 [facility] Comment on above: Order Comment: Name Collection Type:: Santana Catheter Performed By: #### A DDONUAPLUS, CUU ####[place] [address] [place] [address] [facility] Yeast,Urine None Seen Normal None Seen [facility] Comment on above: Order Comment: Name Collection Type:: Santana Catheter Result Comment: PERF ORMED BY:[address] [place], [place] [phone] MEDICAL DIRECTORJOSEPH GARCIA M.D. Performed By: #### A DDONUAPLUS, CUU ####[facility] [place] [address] [facility] ECG 12 lead ECGon 08-02-2023 ECG 12 lead ECG Normal [facility] Fine granular cast count in urine sediment by microscopy (number/low power field )Ordered By: Jesica Juan on 08-02-2023 Fine Granular Casts LM.LPF (Urine sed) [#/Area] 3-4 [LPF] 0-1 [facility] Glucose Poct Glucometerson 0 08-02-2023 Glucose [Mass/Vol] 109 mg/dL Normal The [facility] Comment on above: Result Comment: [place] Glucose Reference Range is dependent on time and content of last meal. Glucose of more than 200 mg/dL in a nonstressed, ambulatory subject supports the diagnosis of Diabetes Mellitus.PERFORMED BY:[place] [address] [place] [place], [place] [phone] MEDICAL DIRECTORJOSEPH GARCIA M.D. Performed By: #### G LULS ####Point of Care testing, Commemt1 Glu2: Cleaned Meter Normal [facility] Comment on above: Result Comment: PERF ORMED BY:[place] [address] [place] [place], [place] [phone] MEDICAL DIRECTORJOSEPH GARCIA M.D. Performed By: #### G LULS ####Point of Care testing, Glucose [Mass/Vol] 163 mg/dL Normal [facility] Comment on above: Result Comment: [place] om Glucose Reference Range is dependent on time and content of last meal. Glucose of more than 200 mg/dL in a nonstressed, ambulatory subject supports the diagnosis of Diabetes Mellitus. Performed By: #### G LULS ####Point of Care testing, Glucose [Mass/Vol] 132 mg/dL Normal [facility] Comment on above: Result Comment: [place] om Glucose Reference Range is dependent on time and content of last meal. Glucose of more than 200 mg/dL in a nonstressed, ambulatory subject supports the diagnosis of Diabetes Mellitus.PERFORMED BY:[place] [address] [address] LOYAT[address] [place], [place] [phone] MEDICAL SILVIA GARCIA M.D. Performed By: #### G LULS ####Point of Care testing, Glucose [Mass/Vol] 101 mg/dL Normal [facility] Comment on above: Result Comment: [place] om Glucose Reference Range is dependent on time and content of last meal. Glucose of more than 200 mg/dL in a nonstressed, ambulatory subject supports the diagnosis of Diabetes Mellitus.PERFORMED BY:[place] [address] [place] [place], [place] [phone] MEDICAL DIRECTORJOSEPH GARCIA M.D. Performed By: #### G LULS ####Point of Care testing, Troponin I High Sensitivityo n 08-02-2023 Troponin I High Sensitivity 1819.2 pg/mL Off scale high 0.0-20.0 [facility] Comment on above: Result Comment: Crit ical Result : Called to and read back by: CARLYN SLAUGHTER at: 08/02/2023 05:34:14 by:[id number] BY:[facility] [place], [place] [phone] MEDICAL DIRECTORJOSEPH GARCIA M.D. Performed By: #### H S TROP ####[address] [address] [facility] Troponin I.cardiac [Mass/vol ume] in Serum or Plasma by Detection limit <= 0.01 ng/Ordered By: Geo Thomas on 08-02-2023 Troponin I.cardiac DL <= 0.01 ng/mL [Mass/Vol] 1819.2 pg/mL 0.0-20.0 [facility] Comment on above: Critical Result : Ca lled to and read back by: CARYLN SLAUGHTER at: 08/02/2023 05:34:14 by:[id number] US venous duplex LE BIon US venous duplex LE BI Normal Th e [facility] Urine Cultureon 08-02-2023 Bacteria identified Cx Nom (U) No Growth 2 Days PERFORMED BY: [facility] [address] [place] [address] PATHOLOGIST PIPE RECOVERY SPECIALIST JOSEPH GARCIA M.D. Normal The [facility] Comment on above: Performed By: #### A ARACELI EVANSU ####[address] [address] [facility] Urine culture routineOrdered By: Jesica Juan on 08-02-2023 Bacteria identified Cx Nom (U) No Growth 2 Days [facility] XR chest 1V portableon 08-01 XR chest 1V portable Normal [facility] Aerobic Cultureon 08-01-2023 Aerobic Culture Normal The [facility] Comment on above: Performed By: #### A ERC, GS ####[address] [address] [facility] Arterial Blood Gason 024 ABG Base Excess -2.0 mmol/L Normal -3.0-3.0 The [facility] Comment on above: Performed By: #### A BG ####Point of Care testing, ABG Frac Inspired O2 60 % Normal [facility] Comment on above: Performed By: #### A BG ####Point of Care testing, ABG Oxygen Content 4.6 mmol/L Low 6.6-9.7 [facility] Comment on above: Performed By: #### A BG ####Point of Care testing, ABG Oxygen Saturation 94.2 % Low 95.0-100.0 [facility] Comment on above: Performed By: #### A BG ####Point of Care testing, ABG PCO2 39.0 mm[Hg] Normal 35.0-45.0 [facility] Comment on above: Performed By: #### A BG ####Point of Care testing, ABG PEEP 5 Normal [facility] Comment on above: Performed By: #### A BG ####Point of Care testing, ABG PH 7.39 Normal 7.35-7.45 [facility] Comment on above: Performed By: #### A BG ####Point of Care testing, ABG PO2 75.0 mm[Hg] Low 80.0-100.0 [facility] Comment on above: Performed By: #### A BG ####Point of Care testing, ABG TV 500 mL Normal [facility] Comment on above: Performed By: #### A BG ####Point of Care testing, CO2 [Moles/Vol] 24.1 mmol/L Normal 23.0-27.0 The [facility] Comment on above: Performed By: #### A BG ####Point of Care testing, HCO3 (Bld) [Moles/Vol] 22.9 mmol/L Low 23.0-29.0 T [facility] Comment on above: Performed By: #### A BG ####Point of Care testing, Respiratory Critical Normal [facility] Comment on above: Result Comment: Crit ical Value called on: 08/01/2023 at 06:42PERFORMED BY:[place] [address] [address] [place], [place] [phone] MEDICAL DIRECTORJOSEPH GARCIA M.D. Performed By: #### A BG ####Point of Care testing, Set Respiratory Rate 14 Normal The [facility] Comment on above: Performed By: #### A BG ####Point of Care testing, VBG Draw Site Left Radial Normal [facility] Comment on above: Performed By: #### A BG ####Point of Care testing, Ventilator Mode AC Normal The [facility] Comment on above: Performed By: #### A BG ####Point of Care testing, BNP ser/plasOrdered By: Malcolm Mejia on 08-01-2023 Natriuretic peptide B (Bld) [Mass/Vol] 886.0 pg/mL High 5-100 [facility] Comment on above: Result Comment: PERF ORMED BY:[address] [place], [place] [phone] MEDICAL DIRECTORJOSEPH GARCIA M.D. Performed By: #### M G, CRP, ESR, TRIG, HS TROP, CMP, CBCNO, BNP ####[facility] [id number] [place] [address] [facility] Bacterial blood cultureOrder ed By: Geo Thomas on 08-01-2023 Bacteria identified Cx Nom (Bld) NO GROWTH 5 DAYS [facility] Bacteria identified Cx Nom (Bld) NO GROWTH 5 DAYS [facility] BioFire Not Detectedon 07-31 BioFire Not Detected Not detected Normal Not Detecte T he [facility] Comment on above: Result Comment: This is a duplicate RP2.1 COVID (PCR) result to be used for statistical tracking purpose only.PERFORMED BY:[place] [address] [address] [place], [place] [phone] MEDICAL SILVIA GARCIA M.D. Performed By: #### B IOFIRECOVNOTDE, RESP PANEL UPP. ####[facility] [address] [address] [facility] Blood Cultureon 08-01-2023 Bacteria identified Cx Nom (Bld) NO GROWTH 5 DAYS PERFORMED BY: [address] [place] [address] PATHOLOGIST PIPE RECOVERY SPECIALIST JOSEPH GARCIA M.D. Normal The [facility] Comment on above: Performed By: #### C UBLD ####[place] [id number] [facility] Bacteria identified Cx Nom (Bld) NO GROWTH 5 DAYS PERFORMED BY: [facility] [address] [facility] [place] [address] PATHOLOGIST PIPE RECOVERY SPECIALIST JOSEPH GARCIA M.D. Normal The [facility] Comment on above: Performed By: #### C UBLD ####[place] [id number] [facility] C-Reactive Proteinon 024 C-Reactive Protein 7.1 mg/dL High 0.0-0.5 [facility] Comment on above: Result Comment: PERF ORMED BY:[address]amikoCLA[place], [place] [phone] MEDICAL DIRECTORJOSEPH GARCIA M.D. Performed By: #### M G, CRP, ESR, TRIG, HS TROP, CMP, CBCNO, BNP ####[place] [id number] [facility] Comprehensive Metabolic Pane neil 08-01-2023 Albumin [Mass/Vol] 2.5 g/dL Low 3.5-5.7 [facility] Comment on above: Performed By: #### M G, CRP, ESR, TRIG, HS TROP, CMP, CBCNO, BNP ####[place] [id number] [facility] Albumin/Globulin [Mass ratio] 0.8 {ratio} Normal [facility] Comment on above: Performed By: #### M G, CRP, ESR, TRIG, HS TROP, CMP, CBCNO, BNP ####[place] [id number] [facility] ALP [Catalytic activity/Vol] 63 U/L Normal 34-104 [facility] Comment on above: Performed By: #### M G, CRP, ESR, TRIG, HS TROP, CMP, CBCNO, BNP ####[address] ALT [Catalytic activity/Vol] 10 U/L Normal 7-52 [facility] Comment on above: Performed By: #### M G, CRP, ESR, TRIG, HS TROP, CMP, CBCNO, BNP ####[address] Anion gap [Moles/Vol] 10.2 mmol/L Normal 6.0-15.0 [facility] Comment on above: Performed By: #### M G, CRP, ESR, TRIG, HS TROP, CMP, CBCNO, BNP ####[address] AST [Catalytic activity/Vol] 23 U/L Normal 13-39 [facility] Comment on above: Performed By: #### M G, CRP, ESR, TRIG, HS TROP, CMP, CBCNO, BNP ####[address] Bilirubin [Mass/Vol] 0.4 mg/dL Normal 0.3-1.0 [facility] Comment on above: Performed By: #### M G, CRP, ESR, TRIG, HS TROP, CMP, CBCNO, BNP ####[address] Calcium [Mass/Vol] 7.6 mg/dL Low 8.6-10.3 [facility] Comment on above: Performed By: #### M G, CRP, ESR, TRIG, HS TROP, CMP, CBCNO, BNP ####[address] Chloride [Moles/Vol] 101 mmol/L Normal 98-107 [facility] Comment on above: Performed By: #### M G, CRP, ESR, TRIG, HS TROP, CMP, CBCNO, BNP ####[place] [address] CO2 [Moles/Vol] 24.6 mmol/L Normal 21.0-31.0 The [facility] Comment on above: Performed By: #### M G, CRP, ESR, TRIG, HS TROP, CMP, CBCNO, BNP ####[address] Creatinine [Mass/Vol] 3.42 mg/dL High 0.70-1.30 [facility] Comment on above: Performed By: #### M G, CRP, ESR, TRIG, HS TROP, CMP, CBCNO, BNP ####[address] Creatinine Clr Calc Pharmacy 23.17 Normal [facility] Comment on above: Performed By: #### M G, CRP, ESR, TRIG, HS TROP, CMP, CBCNO, BNP ####[address] GFR/1.73 sq M.predicted MDRD (S/P/Bld) [Vol rate/Area] 18.398 mL/min/{1.73_m2} Normal The [facility] Comment on above: Performed By: #### M G, CRP, ESR, TRIG, HS TROP, CMP, CBCNO, BNP ####[address] Globulin (S) [Mass/Vol] 3.0 g/dL Normal [facility] Comment on above: Performed By: #### M G, CRP, ESR, TRIG, HS TROP, CMP, CBCNO, BNP ####[address] Glucose [Mass/Vol] 142 mg/dL High 70-100 [facility] Comment on above: Result Comment: [place] Glucose Reference Range is dependent on time and content of last meal. Glucose of more than 200 mg/dL in a nonstressed, ambulatory subject supports the diagnosis of Diabetes Mellitus. ADA recommended reference range Performed By: #### M G, CRP, ESR, TRIG, HS TROP, CMP, CBCNO, BNP ####[place] [id number] Potassium [Moles/Vol] 4.8 mmol/L Normal 3.5-5.1 [facility] Comment on above: Performed By: #### M G, CRP, ESR, TRIG, HS TROP, CMP, CBCNO, BNP ####[address] Protein [Mass/Vol] 5.5 g/dL Low 6.4-8.9 [facility] Comment on above: Performed By: #### M G, CRP, ESR, TRIG, HS TROP, CMP, CBCNO, BNP ####[address] Sodium [Moles/Vol] 131 mmol/L Low 136-145 [facility] Comment on above: Performed By: #### M G, CRP, ESR, TRIG, HS TROP, CMP, CBCNO, BNP ####[address] Urea nitrogen [Mass/Vol] 32 mg/dL High 7-25 [facility] Comment on above: Performed By: #### M G, CRP, ESR, TRIG, HS TROP, CMP, CBCNO, BNP ####[address] ECG 12 lead ECGon 08-01-2023 ECG 12 lead ECG Normal [facility] ECH echo transthoracicon ECH echo transthoracic Normal Th e [facility] Erythrocyte Sedimentation Ra salma 08-01-2023 ESR (Bld) [Velocity] 21 mm/h High 0-19 [facility] Comment on above: Result Comment: PERF ORMED BY:[address] [place], [place] [phone] MEDICAL DIRECTORJOSEPH GARCIA M.D. Performed By: #### M G, CRP, ESR, TRIG, HS TROP, CMP, CBCNO, BNP ####[address] Erythrocyte sedimentation ra te by Photometric methodOrdered By: Geo Thomas on 08-01-2023 ESR Photometric method (Bld) [Velocity] 21 mm/hr 0-19 [facility] Ferritinon 08-01-2023 Ferritin [Mass/Vol] 636.4 ng/mL High 23.9-336.2 [facility] Comment on above: Performed By: #### F ER, [id number], FE and TIBC ####[facility] [id number] [place], [place] [address]emily [place] [address] [facility] Folate [Mass/volume] in Seru m or PlasmaOrdered By: Geo Thomas on 08-01-2023 Folate [Mass/Vol] 8.5 ng/mL >5.9 [facility] Comment on above: Folate reference ran ge: >5.9 ng/mlThe WHO technical consultation on folate and vitamin [id number] has determined that folate concentrations lessthan 4 ng/ml are considered deficient. Glucose Poct Glucometerson 0 08-01-2023 Commemt1 Glu2: Cleaned Meter Normal [facility] Comment on above: Result Comment: PERF ORMED BY:[address] [address] [address] [place], [place] [phone] MEDICAL DIRECTORJOSEPH GARCIA M.D. Performed By: #### G LULS ####Point of Care testing, Glucose [Mass/Vol] 139 mg/dL Normal [facility] Comment on above: Result Comment: [place] Glucose Reference Range is dependent on time and content of last meal. Glucose of more than 200 mg/dL in a nonstressed, ambulatory subject supports the diagnosis of Diabetes Mellitus. Performed By: #### G LULS ####Point of Care testing, Commemt1 Glu2: Cleaned Meter Normal [facility] Comment on above: Result Comment: PERF ORMED BY:[address] [address] [place], [place] [phone] MEDICAL DIRECTORJOSEPH GARCIA M.D. Performed By: #### G LULS ####Point of Care testing, Glucose [Mass/Vol] 187 mg/dL Normal [facility] Comment on above: Result Comment: [facility] Glucose Reference Range is dependent on time and content of last meal. Glucose of more than 200 mg/dL in a nonstressed, ambulatory subject supports the diagnosis of Diabetes Mellitus. Performed By: #### G VALERY ####Point of Care testing, Gram Stainon 08-01-2023 Microscopic observation Gram stain Nom (Unsp spec) Gram Stain Result 1+ Epithelial Cells 1+ White Blood Cells Rare Gram Negative Bacilli PERFORMED BY: [facility] [address] [place] [address] PATHOLOGIST PIPE RECOVERY SPECIALIST JOSEPH GARCIA M.D. Normal [facility] Comment on above: Performed By: #### A CONOR POLANCO ####[address] Gram stain for investigation of transfusion reactionOrdered By: Geo Thomas on 08-01-2023 Microscopic observation Gram stain Nom (Unsp spec) Rajiv dubliniensis [facility] Hemogram CBC Without Diffon 08-01-2023 Erythrocyte distribution width (RBC) [Ratio] 19.4 % High 12.0-14.8 [facility] Comment on above: Performed By: #### M G, CRP, ESR, TRIG, HS TROP, CMP, CBCNO, BNP ####[address] Hematocrit (Bld) [Volume fraction] 20.0 % Low 38.8-50.0 [facility] Comment on above: Performed By: #### M G, CRP, ESR, TRIG, HS TROP, CMP, CBCNO, BNP ####[address] Hemoglobin (Bld) [Mass/Vol] 6.7 g/dL Low 13.0-17.0 [facility] Comment on above: Performed By: #### M G, CRP, ESR, TRIG, HS TROP, CMP, CBCNO, BNP ####[address] MCH (RBC) [Entitic mass] 30.1 pg Normal 27.5-35.2 [facility] Comment on above: Performed By: #### M G, CRP, ESR, TRIG, HS TROP, CMP, CBCNO, BNP ####[address] MCV (RBC) [Entitic vol] 90.3 fL Normal 83.5-101 [facility] Comment on above: Performed By: #### M G, CRP, ESR, TRIG, HS TROP, CMP, CBCNO, BNP ####[address] Mean Corpuscular HGB Conc 33.4 g/dL Normal 32.5-35.6 [facility] Comment on above: Performed By: #### M G, CRP, ESR, TRIG, HS TROP, CMP, CBCNO, BNP ####[address] Platelet mean volume (Bld) [Entitic vol] 7.3 fL Normal 6.6-10.1 [facility] Comment on above: Performed By: #### M G, CRP, ESR, TRIG, HS TROP, CMP, CBCNO, BNP ####[address] Platelets (Bld) [#/Vol] 282 10*3/uL Normal 150-450 [facility] Comment on above: Performed By: #### M G, CRP, ESR, TRIG, HS TROP, CMP, CBCNO, BNP ####[address] RBC (Bld) [#/Vol] 2.22 10*6/uL Low 3.90-5.60 [facility] Comment on above: Performed By: #### M G, CRP, ESR, TRIG, HS TROP, CMP, CBCNO, BNP ####[address] WBC (Bld) [#/Vol] 10.0 10*3/uL Normal 4.1-10.5 [facility] Comment on above: Performed By: #### M G, CRP, ESR, TRIG, HS TROP, CMP, CBCNO, BNP ####[address] [place] [address] [facility] Iron and TIBC Profileon % Iron Saturation 7.9 % Low 20-50 The [facility] Comment on above: Performed By: #### F ER, [id number], FE and TIBC ####[place] [id number] [facility] Iron [Mass/Vol] 15 ug/dL Low 50-212 [facility] Comment on above: Performed By: #### F ER, [id number], FE and TIBC ####[place] [address] [id number] [facility] Total Iron Binding Capacity 190 ug/dL Low 255-450 [facility] Comment on above: Performed By: #### F ER, [id number], FE and TIBC ####[place] [address] [id number] [facility] Transferrin [Mass/Vol] 136 mg/dL Low 203-362 [facility] Comment on above: Performed By: #### F ER, [id number], FE and TIBC ####[place] [id number] [facility] Lactate [Moles/volume] in Se rum or PlasmaOrdered By: Orestes Mejia on 08-01-2023 Lactate [Moles/Vol] 1.0 mmol/L Normal 0.5-2.2 [facility] Comment on above: Result Comment: PERF ORMED BY:[address] [place], [place] [phone] MEDICAL DIRECTORJOSEPH GARCIA M.D. Performed By: #### L ACTIC ####[place] [id number] [facility] LeukoReduced RBCon LeukoReduced RBC TRANSFUSED 08/01/23 1450 Normal [facility] Magnesiumon 08-01-2023 Magnesium [Mass/Vol] 1.8 mg/dL Low 1.9-2.7 [facility] Comment on above: Performed By: #### M G, CRP, ESR, TRIG, HS TROP, CMP, CBCNO, BNP ####[address] [address] [facility] Microscopic observation Gram stain Nom (Unsp spec)Ordered By: Geo Thomas on 08-01-2023 Gram stain for investigation of transfusion reaction Rajiv dubliniensis [facility] Partial Thromboplastin Timeo n 08-01-2023 aPTT Coag (Bld) [Time] 32.1 s Normal 25.1-36.5 Th e [facility] Comment on above: Result Comment: A he matocrit value greater than 55% may lead to inaccurate results in coagulation testing. Patients having hematocrit values >55% require a special collection tube for coagulation studies. Please contact the laboratory at [phone] for redraw instructions.PERFORMED BY:[address] [place], [place] [phone] MEDICAL DIRECTORJOSEPH GARCIA M.D. Performed By: #### P T, PTT ####[address] [place] [address] [facility] Prothrombin Time INRon 07-31 INR Coag (PPP) [Relative time] 1.2 {INR} Normal [facility] Comment on above: Result Comment: [...] 4.5 Performed By: #### P T, PTT ####[place] [id number] [facility] PT Coag (PPP) [Time] 13.4 s High 9.0-12.9 [facility] Comment on above: Result Comment: A he matocrit value greater than 55% may lead to inaccurate results in coagulation testing. Patients having hematocrit values >55% require a special collection tube for coagulation studies. Please contact the laboratory at [phone] for redraw instructions. Performed By: #### P T, PTT ####[place] [id number] [facility] Respiratory (Upper) Panel, P CRon 08-01-2023 Respiratory (Upper) Panel, PCR Normal [facility] Comment on above: Performed By: #### B IOFIRECOVNOTDE, RESP PANEL UPP. ####[place] [id number] [facility] Respiratory pathogens DNA an d RNA panel - Nasopharynx by JONES with non-probe detectionOrdered By: Geo Thomas on 08-01-2023 Respiratory pathogens DNA and RNA panel JONES+non-probe (Nph) [facility] Triglycerideson 08-01-2023 Triglyceride [Mass/Vol] 145 mg/dL Normal 35-149 [facility] Comment on above: Result Comment: TRIG ATP III CLASSIFICATION TRIG less than 150 mg/dL Normal TRIG 150-199 mg/dL Borderline high TRIG 200-500 mg/dL High TRIG greater than 500 mg/dL Very high Standard traceable to the Center for Disease Conrtrol and Prevention (CDC) test method.PERFORMED BY:[address] [place], [place] [phone] MEDICAL DIRECTORJOSEPH GARCIA M.D. Performed By: #### M G, CRP, ESR, TRIG, HS TROP, CMP, CBCNO, BNP ####[place] [address] [id number] [facility] Troponin I High Sensitivityo n 08-01-2023 Troponin I High Sensitivity 2200.9 pg/mL Off scale high 0.0-20.0 [facility] Comment on above: Result Comment: Crit ical Result : Called to and read back by: DANIELLE BERNAL at: 08/01/2023 19:31:11 by:[id number] BY:[address] [address] [place], [place] [phone] MEDICAL DIRECTORJOSEPH GARCIA M.D. Performed By: #### H S TROP ####[address] [address] [facility] Troponin I High Sensitivity 2429.4 pg/mL Off scale high 0.0-20.0 [facility] Comment on above: Result Comment: Crit ical Result : Called to and read back by: MARC SINGER at: 08/01/2023 16:04:33 by:[email or web address] BY:[address] [address] [address] [place], [place] [phone] MEDICAL DIRECTORJOSPEH GARCIA M.D. Performed By: #### H S TROP ####[address] [address] [place] Troponin I High Sensitivity 2368.8 pg/mL Off scale high 0.0-20.0 [facility] Comment on above: Order Comment: Mae Anaya - Laboratory 9:03 AM please retime the 1030 trop for Johnathon chelsea for 1200 per rn maame Result Comment: Crit ical Result : Called to and read back by: MAAME RIVERA at: 08/01/2023 13:14:15 by:[email or web address] BY:[address] [address] [address] [place], [place] [phone] MEDICAL DIRECTORJOSEPH GARCIA M.D. Performed By: #### H S TROP ####[address] [address] [facility] Troponin I High Sensitivity 1764.3 pg/mL Off scale high 0.0-20.0 [facility] Comment on above: Result Comment: Crit ical Result : Called to and read back by: MAAME RIVERA at: 08/01/2023 10:14:05 by:[email or web address] BY:[address] [address] [address] [place], [place] [phone] MEDICAL DIRECTORJOSEPH GARCIA M.D. Performed By: #### H S TROP ####[address] [address] [place] Troponin I High Sensitivity 1310.2 pg/mL Off scale high 0.0-20.0 [facility] Comment on above: Result Comment: Crit ical Result : Called to and read back by: MARC SINGH at: 08/01/2023 08:30:49 by:[id number] BY:[address] [address] [address] [place], [place] [phone] MEDICAL DIRECTORJOSEPH GARCIA M.D. Performed By: #### M G, CRP, ESR, TRIG, HS TROP, CMP, CBCNO, BNP ####[address] [address] [place] Type and Screenon 08-01-2023 ABO and Rh group Nom (Bld) Blood group O Rh(D) positive Normal [facility] Comment on above: Order Comment: Trans fuse now? Y Number of units to transfuse now? 2 Result Comment: PERF ORMED BY:[address] [address] [address] [place] [place], [place] [phone] MEDICAL DIRECTORJOSEPH GARCIA M.D. Vit. B12/Folate Profileon Folate 8.5 ng/mL Normal >5.9 [facility] Comment on above: Result Comment: Myra te reference range: >5.9 ng/ml The WHO technical consultation on folate and vitamin b12 deficiencies has determined that folate concentrations less than 4 ng/ml are considered deficient.PERFORMED BY:[address] [address] [address] [place] [place], [place] [phone] MEDICAL DIRECTORJOSEPH GARCIA M.D. Performed By: #### F ER, [id number], FE and TIBC ####[address] [address] [facility] Vitamin B12 ser/plasOrdered By: Geo Thomas on 08-01-2023 Cobalamin (Vitamin B12) [Mass/Vol] 265 pg/mL Normal 180-914 [facility] Comment on above: Performed By: #### F ER, [id number], FE and TIBC ####[address] [address] [facility] XR abdomen 1Von 08-01-2023 XR abdomen 1V Normal [facility] Albumin [Mass/volume] in Ser um or Plasma by Bromocresol green (BCG) dye binding methoOrdered By: Rancho Kay on 07-26-2023 Albumin BCG dye [Mass/Vol] 2.4 g/dL 3.5-5.7 [facility] Calcium [Mass/volume] in Ser um or PlasmaOrdered By: Rancho Kay on 07-26-2023 Calcium [Mass/Vol] 7.3 mg/dL Low 8.6-10.3 [facility] Comment on above: Order Comment: in pt Performed By: #### R ENAL ####[facility] [id number] [place] [address] [facility] Capillary blood glucose nic urement by glucometer (mass/volume)Ordered By: Geo Thomas on 07-26-2023 Glucose [Mass/Vol] 217 mg/dL Normal [facility] Comment on above: Result Comment: [facility] Glucose Reference Range is dependent on time and content of last meal. Glucose of more than 200 mg/dL in a nonstressed, ambulatory subject supports the diagnosis of Diabetes Mellitus.PERFORMED BY:[facility] [place], [place] [phone] MEDICAL DIRECTORJOSEPH GARCIA M.D. Performed By: #### G LULS ####Point of Care testing, Carbon dioxide, total [Moles /volume] in Serum or PlasmaOrdered By: Rancho Kay on 07-26-2023 CO2 [Moles/Vol] 25.7 mmol/L Normal 21.0-31.0 [facility] Comment on above: Order Comment: in pt Performed By: #### R ENAL ####[facility] [id number] [place] [address] [facility] Chloride [Moles/volume] in S rene or PlasmaOrdered By: Rancho Kay on 07-26-2023 Chloride [Moles/Vol] 101 mmol/L Normal 98-107 [facility] Comment on above: Order Comment: in pt Performed By: #### R ENAL ####[facility] [place] [address] [facility] Creatinine [Mass/volume] in Serum or PlasmaOrdered By: Rancho Kay on 07-26-2023 Creatinine [Mass/Vol] 2.73 mg/dL Significan t change up 0.70-1.30 [facility] Comment on above: Order Comment: in pt Performed By: #### R ENAL ####[address] [place] [address] [facility] Glucose Poct Glucometerson 0 07-26-2023 Glucose [Mass/Vol] 150 mg/dL Normal [facility] Comment on above: Result Comment: [place] om Glucose Reference Range is dependent on time and content of last meal. Glucose of more than 200 mg/dL in a nonstressed, ambulatory subject supports the diagnosis of Diabetes Mellitus.PERFORMED BY:[address] [place], [place] [phone] MEDICAL DIRECTORJOSEPH GARCIA M.D. Performed By: #### G LULS ####Point of Care testing, Glucose [Mass/volume] in Ser um or PlasmaOrdered By: Rancho Kay on 07-26-2023 Glucose [Mass/Vol] 199 mg/dL Significant change up 70-100 [facility] Comment on above: Order Comment: in pt Result Comment: [place] om Glucose Reference Range is dependent on time and content of last meal. Glucose of more than 200 mg/dL in a nonstressed, ambulatory subject supports the diagnosis of Diabetes Mellitus. ADA recommended reference range Performed By: #### R ENAL ####[facility] [place] [address] [facility] No Panel InformationOrdered By: Rancho Kay on 07-26-2023 24.111 mL/Min [facility] 28.64 [facility] Phosphate [Mass/volume] in S rene or PlasmaOrdered By: Rancho Kay on 07-26-2023 Phosphate [Mass/Vol] 4.6 mg/dL High 2.5-4.5 [facility] Comment on above: Order Comment: in pt Performed By: #### R ENAL ####[address] [address] [facility] Potassium [Moles/volume] in Serum or PlasmaOrdered By: Rancho Kay on 07-26-2023 Potassium [Moles/Vol] 4.0 mmol/L Normal 3.5-5.1 [facility] Comment on above: Order Comment: in pt Performed By: #### R ENAL ####[address] [address] [facility] Renal Function Panelon 07-25 Albumin [Mass/Vol] 2.4 g/dL Low 3.5-5.7 [facility] Comment on above: Order Comment: in pt Performed By: #### R ENAL ####[place] [id number] [facility] Creatinine Clr Calc Pharmacy 28.64 Normal [facility] Comment on above: Order Comment: in pt Result Comment: PERF ORMED BY:[address] [place], [place] [phone] MEDICAL DIRECTORJOSEPH GARCIA M.D. Performed By: #### R ENAL ####[address] [address] [facility] GFR/1.73 sq M.predicted MDRD (S/P/Bld) [Vol rate/Area] 24.111 mL/min/{1.73_m2} Normal [facility] Comment on above: Order Comment: in pt Performed By: #### R ENAL ####[address] [address] [facility] Serum or plasma anion gap de terminationOrdered By: Rancho Kay on 07-26-2023 Anion gap [Moles/Vol] 10.3 mmol/L Normal 6.0-15.0 [facility] Comment on above: Order Comment: in pt Performed By: #### R ENAL ####[address] [address] [facility] Sodium [Moles/volume] in Ser um or PlasmaOrdered By: Rancho Kay on 07-26-2023 Sodium [Moles/Vol] 133 mmol/L Low 136-145 [facility] Comment on above: Order Comment: in pt Performed By: #### R ENAL ####[address] Urea nitrogen [Mass/volume] in Serum or PlasmaOrdered By: Rancho Kay on 07-26-2023 Urea nitrogen [Mass/Vol] 19 mg/dL Normal 7-25 [facility] Comment on above: Order Comment: in pt Performed By: #### R ENAL ####[address] Automated basophil %Ordered By: Michael Ramírez on 07-25-2023 Basophils/100 WBC (Bld) 1.2 % Normal . [facility] Comment on above: Performed By: #### C BC ####[address] Automated basophil countOrde red By: Michael Ramírez on 07-25-2023 Basophils (Bld) [#/Vol] 0.2 10*3/uL Normal 0.0-0.2 [facility] Comment on above: Result Comment: PERF ORMED BY:[address] [place], [place] [phone] MEDICAL DIRECTORJOSEPH GARCIA M.D. Performed By: #### C BC ####[address] Automated blood monocyte cou ntOrdered By: Michael Ramírez on 07-25-2023 Monocytes (Bld) [#/Vol] 1.4 10*3/uL High 0.0-0.8 [facility] Comment on above: Performed By: #### C BC ####[address] Automated eosinophil %Ordere d By: Michael Ramírez on 07-25-2023 Eosinophils/100 WBC (Bld) 2.4 % Normal . [facility] Comment on above: Performed By: #### C BC ####[address] Automated eosinophil countOr dered By: Michael Ramírez on 07-25-2023 Eosinophils (Bld) [#/Vol] 0.4 10*3/uL Normal 0.0-0.45 [facility] Comment on above: Performed By: #### C BC ####[address] Automated monocyte %Ordered By: Michael Ramírez on 07-25-2023 Monocytes/100 WBC (Bld) 8.0 % Normal . [facility] Comment on above: Performed By: #### C BC ####[address] Automated neutrophil %Ordere d By: Michael Ramírez on 07-25-2023 Neutrophils/100 WBC (Bld) 73.1 % Normal . [facility] Comment on above: Performed By: #### C BC ####[address] Complete Blood Count Auto Di ffon 07-25-2023 Mean Corpuscular HGB Conc 34.7 g/dL Normal 32.5-35.6 [facility] Comment on above: Performed By: #### C BC ####[address] NRBC% 0.1 /100{WBC} Normal 0-0.5 [facility] Comment on above: Performed By: #### C BC ####[address] Erythrocyte distribution wid th [Ratio] by Automated countOrdered By: Michael Ramírez on 07-25-2023 Erythrocyte distribution width (RBC) [Ratio] 18.1 % High 12.0-14.8 [facility] Comment on above: Performed By: #### C BC ####[address] Erythrocytes [#/volume] in B lood by Automated countOrdered By: Michael Ramírez on 07-25-2023 RBC (Bld) [#/Vol] 2.67 10*6/uL Low 3.90-5.60 [facility] Comment on above: Performed By: #### C BC ####[address] [address] [facility] Glucose Poct Glucometerson 0 07-25-2023 Glucose [Mass/Vol] 161 mg/dL Normal [facility] Comment on above: Result Comment: [place] om Glucose Reference Range is dependent on time and content of last meal. Glucose of more than 200 mg/dL in a nonstressed, ambulatory subject supports the diagnosis of Diabetes Mellitus.PERFORMED BY:[address] [address] [address] [place], [place] [phone] MEDICAL DIRECTORJOSEPH GARCIA M.D. Performed By: #### G LULS ####Point of Care testing, Glucose [Mass/Vol] 145 mg/dL Normal [facility] Comment on above: Result Comment: [place] om Glucose Reference Range is dependent on time and content of last meal. Glucose of more than 200 mg/dL in a nonstressed, ambulatory subject supports the diagnosis of Diabetes Mellitus.PERFORMED BY:[address] [place], [place] [phone] MEDICAL DIRECTORJOSEPH GARCIA M.D. Performed By: #### G LULS ####Point of Care testing, Glucose [Mass/Vol] 112 mg/dL Normal [facility] Comment on above: Result Comment: [place] om Glucose Reference Range is dependent on time and content of last meal. Glucose of more than 200 mg/dL in a nonstressed, ambulatory subject supports the diagnosis of Diabetes Mellitus.PERFORMED BY:[address] [place], [place] [phone] MEDICAL DIRECTORJOSEPH GARCIA M.D. Performed By: #### G LULS ####Point of Care testing, Hematocrit [Volume Fraction] of Blood by Automated countOrdered By: Michael Ramírez on 07-25-2023 Hematocrit (Bld) [Volume fraction] 23.0 % Low 38.8-50.0 [facility] Comment on above: Performed By: #### C BC ####[address] [place] [address] [facility] Hemoglobin [Mass/volume] in BloodOrdered By: Michael Ramírez on 07-25-2023 Hemoglobin (Bld) [Mass/Vol] 8.0 g/dL Low 13.0-17.0 [facility] Comment on above: Performed By: #### C BC ####[place] [id number] [facility] Leukocytes [#/volume] correc jewel for nucleated erythrocytes in Blood by Automated counOrdered By: Michael Ramírez on 07-25-2023 WBC corrected for nucl RBC Auto (Bld) [#/Vol] 17.7 10*3/uL 4.1-10.5 [facility] Leukocytes [#/volume] in Blo od by Automated countOrdered By: Michael Ramírez on 07-25-2023 WBC (Bld) [#/Vol] 17.7 10*3/uL High 4.1-10.5 [facility] Comment on above: Performed By: #### C BC ####[place] [id number] [facility] Lymphocytes [#/volume] in Bl ood by Automated countOrdered By: Michael Ramírez on 07-25-2023 Lymphocytes (Bld) [#/Vol] 2.7 10*3/uL Normal 1.00-4.8 [facility] Comment on above: Performed By: #### C BC ####[place] [id number] [facility] Lymphocytes/100 leukocytes i n Blood by Automated countOrdered By: Michael Ramírez on 07-25-2023 Lymphocytes/100 WBC (Bld) 15.3 % Normal . [facility] Comment on above: Performed By: #### C BC ####[place] [id number] [facility] MCH [Entitic mass] by Automa jewel countOrdered By: Michael Ramírez on 07-25-2023 MCH (RBC) [Entitic mass] 30.0 pg Normal 27.5-35.2 [facility] Comment on above: Performed By: #### C BC ####[place] [id number] [facility] [facility] MCHC Auto (RBC) [Mass/Vol]Or dered By: Michael Ramírez on 07-25-2023 MCHC (RBC) [Mass/Vol] 34.7 g/dL 32.5-35.6 [facility] MCV [Entitic volume] by Auto mated countOrdered By: Michael Ramírez on 07-25-2023 MCV (RBC) [Entitic vol] 86.4 fL Normal 83.5-101 [facility] Comment on above: Performed By: #### C BC ####[address] Neutrophils [#/volume] in Bl ood by Automated countOrdered By: Michael Ramírez on 07-25-2023 Neutrophils (Bld) [#/Vol] 12.9 10*3/uL High 1.8-7.7 [facility] Comment on above: Performed By: #### C BC ####[address] Nucleated erythrocytes [Pres ence] in Blood by Automated countOrdered By: Michael Ramírez on 07-25-2023 Nucleated RBC Auto Ql (Bld) 0.1 /100{WBC} 0-0.5 [facility] Platelet mean volume [Entiti c volume] in Blood by Automated countOrdered By: Michael Ramírez on 07-25-2023 Platelet mean volume (Bld) [Entitic vol] 6.7 fL Normal 6.6-10.1 [facility] Comment on above: Performed By: #### C BC ####[address] Platelets [#/volume] in Bloo d by Automated countOrdered By: Michael Ramírez on 07-25-2023 Platelets (Bld) [#/Vol] 571 10*3/uL High 150-450 [facility] Comment on above: Performed By: #### C BC ####[address] Renal Function Panelon 07-24 Albumin [Mass/Vol] 2.3 g/dL Low 3.5-5.7 [facility] Comment on above: Performed By: #### R ENAL ####[address] [place] [address] [facility] Anion gap [Moles/Vol] 10.1 mmol/L Normal 6.0-15.0 Th e [facility] Comment on above: Performed By: #### R ENAL ####[address] [address] [facility] Calcium [Mass/Vol] 7.3 mg/dL Low 8.6-10.3 [facility] Comment on above: Performed By: #### R ENAL ####[address] [address] [facility] Chloride [Moles/Vol] 96 mmol/L Low 98-107 [facility] Comment on above: Performed By: #### R ENAL ####[id number] [facility] CO2 [Moles/Vol] 29.3 mmol/L Normal 21.0-31.0 [facility] Comment on above: Performed By: #### R ENAL ####[address] [address] [facility] Creatinine [Mass/Vol] 3.28 mg/dL Significan t change up 0.70-1.30 [facility] Comment on above: Performed By: #### R ENAL ####[id number] [facility] Creatinine Clr Calc Pharmacy 24.03 Normal [facility] Comment on above: Result Comment: PERF ORMED BY:[address] [place], [place] [phone] MEDICAL SILVIA GARCIA M.D. Performed By: #### R ENAL ####[id number] [place] GFR/1.73 sq M.predicted MDRD (S/P/Bld) [Vol rate/Area] 19.345 mL/min/{1.73_m2} Normal [facility] Comment on above: Performed By: #### R ENAL ####[address] [address] [facility] Glucose [Mass/Vol] 84 mg/dL Normal 70-100 [facility] Comment on above: Result Comment: [facility] Glucose Reference Range is dependent on time and content of last meal. Glucose of more than 200 mg/dL in a nonstressed, ambulatory subject supports the diagnosis of Diabetes Mellitus. ADA recommended reference range Performed By: #### R ENAL ####[address] [address] [facility] Phosphate [Mass/Vol] 5.1 mg/dL High 2.5-4.5 [facility] Comment on above: Performed By: #### R ENAL ####[id number] [facility] Potassium [Moles/Vol] 4.4 mmol/L Normal 3.5-5.1 [facility] Comment on above: Performed By: #### R ENAL ####[id number] [facility] Sodium [Moles/Vol] 131 mmol/L Low 136-145 [facility] Comment on above: Performed By: #### R ENAL ####[id number] [facility] Urea nitrogen [Mass/Vol] 23 mg/dL Normal 7-25 [facility] Comment on above: Performed By: #### R ENAL ####[id number] [facility] Glucose Poct Glucometerson 0 07-24-2023 Glucose [Mass/Vol] 140 mg/dL Normal [facility] Comment on above: Result Comment: [facility] Glucose Reference Range is dependent on time and content of last meal. Glucose of more than 200 mg/dL in a nonstressed, ambulatory subject supports the diagnosis of Diabetes Mellitus.PERFORMED BY:[address] [address] [address] [place], [place] [phone] MEDICAL DIRECTORJOSEPH GARCIA M.D. Performed By: #### G LUANURAG ####Point of Care testing, Commemt1 Glu2: Cleaned Meter Normal [facility] Comment on above: Result Comment: PERF ORMED BY:[address] [address] [place], [place] [phone] MEDICAL DIRECTORJOSEPH GARCIA M.D. Performed By: #### G LULS ####Point of Care testing, Glucose [Mass/Vol] 74 mg/dL Normal [facility] Comment on above: Result Comment: [place] [facility] Glucose Reference Range is dependent on time and content of last meal. Glucose of more than 200 mg/dL in a nonstressed, ambulatory subject supports the diagnosis of Diabetes Mellitus. Performed By: #### G LULS ####Point of Care testing, Commemt1 Glu2: Cleaned Meter Normal [facility] Comment on above: Result Comment: PERF ORMED BY:[address] [place], [place] [phone] MEDICAL DIRECTORJOSEPH GARCIA M.D. Performed By: #### G LULS ####Point of Care testing, Glucose [Mass/Vol] 158 mg/dL Normal [facility] Comment on above: Result Comment: [place] [facility] Glucose Reference Range is dependent on time and content of last meal. Glucose of more than 200 mg/dL in a nonstressed, ambulatory subject supports the diagnosis of Diabetes Mellitus. Performed By: #### G LULS ####Point of Care testing, Commemt1 Glu2: Cleaned Meter Normal [facility] Comment on above: Result Comment: PERF ORMED BY:[address] [place], [place] [phone] MEDICAL DIRECTORJOSEPH GARCIA M.D. Performed By: #### G LULS ####Point of Care testing, Glucose [Mass/Vol] 111 mg/dL Normal [facility] Comment on above: Result Comment: [place] Glucose Reference Range is dependent on time and content of last meal. Glucose of more than 200 mg/dL in a nonstressed, ambulatory subject supports the diagnosis of Diabetes Mellitus. Performed By: #### G LULS ####Point of Care testing, No Panel InformationOrdered By: Vania Chacon on 07-24-2023 Glu2: cleaned meter [facility] Renal Function Panelon Albumin [Mass/Vol] 2.3 g/dL Low 3.5-5.7 [facility] Comment on above: Performed By: #### R ENAL ####[address] [address] [facility] Anion gap [Moles/Vol] 11.5 mmol/L Normal 6.0-15.0 [facility] Comment on above: Performed By: #### R ENAL ####[address] [address] [facility] Calcium [Mass/Vol] 7.2 mg/dL Low 8.6-10.3 [facility] Comment on above: Performed By: #### R ENAL ####[address] [address] [facility] Chloride [Moles/Vol] 98 mmol/L Normal 98-107 [facility] Comment on above: Performed By: #### R ENAL ####[address] [address] [facility] CO2 [Moles/Vol] 28.8 mmol/L Normal 21.0-31.0 [facility] Comment on above: Performed By: #### R ENAL ####[address] [address] [facility] Creatinine [Mass/Vol] 2.77 mg/dL Significan t change up 0.70-1.30 [facility] Comment on above: Performed By: #### R ENAL ####[address] [address] [place] Creatinine Clr Calc Pharmacy 27.90 Normal [facility] Comment on above: Result Comment: PERF ORMED BY:[address] [address] [place], [place] [phone] MEDICAL DIRECTORJOSEPH GARCIA M.D. Performed By: #### R ENAL ####[address] [address] [id number] [facility] GFR/1.73 sq M.predicted MDRD (S/P/Bld) [Vol rate/Area] 23.694 mL/min/{1.73_m2} Normal [facility] Comment on above: Performed By: #### R ENAL ####[id number] [facility] Glucose [Mass/Vol] 94 mg/dL Normal 70-100 [facility] Comment on above: Result Comment: [place] Glucose Reference Range is dependent on time and content of last meal. Glucose of more than 200 mg/dL in a nonstressed, ambulatory subject supports the diagnosis of Diabetes Mellitus. ADA recommended reference range Performed By: #### R ENAL ####[address] Phosphate [Mass/Vol] 4.5 mg/dL Normal 2.5-4.5 [facility] Comment on above: Performed By: #### R ENAL ####[address] Potassium [Moles/Vol] 4.3 mmol/L Normal 3.5-5.1 [facility] Comment on above: Performed By: #### R ENAL ####[id number] [facility] Sodium [Moles/Vol] 134 mmol/L Low 136-145 [facility] Comment on above: Performed By: #### R ENAL ####[id number] [facility] Urea nitrogen [Mass/Vol] 18 mg/dL Normal 7-25 [facility] Comment on above: Performed By: #### R ENAL ####[id number] [facility] Complete Blood Count Auto Di ffon 07-23-2023 Basophils (Bld) [#/Vol] 0.2 10*3/uL Normal 0.0-0.2 [facility] Comment on above: Result Comment: PERF ORMED BY:[address] [place], [place] [phone] MEDICAL DIRECTORJOSEPH GARCIA M.D. Performed By: #### C BC ####[address] Basophils/100 WBC (Bld) 1.1 % Normal . [facility] Comment on above: Performed By: #### C BC ####[address] Eosinophils (Bld) [#/Vol] 0.4 10*3/uL Normal 0.0-0.45 [facility] Comment on above: Performed By: #### C BC ####[address] Eosinophils/100 WBC (Bld) 2.2 % Normal . [facility] Comment on above: Performed By: #### C BC ####[address] Erythrocyte distribution width (RBC) [Ratio] 17.8 % High 12.0-14.8 [facility] Comment on above: Performed By: #### C BC ####[address] Hematocrit (Bld) [Volume fraction] 22.8 % Low 38.8-50.0 [facility] Comment on above: Performed By: #### C BC ####[address] Hemoglobin (Bld) [Mass/Vol] 7.8 g/dL Low 13.0-17.0 [facility] Comment on above: Performed By: #### C BC ####[address] Lymphocytes (Bld) [#/Vol] 3.0 10*3/uL Normal 1.00-4.8 [facility] Comment on above: Performed By: #### C BC ####[address] Lymphocytes/100 WBC (Bld) 16.4 % Normal . [facility] Comment on above: Performed By: #### C BC ####[address] MCH (RBC) [Entitic mass] 29.7 pg Normal 27.5-35.2 [facility] Comment on above: Performed By: #### C BC ####[address] MCV (RBC) [Entitic vol] 87.0 fL Normal 83.5-101 [facility] Comment on above: Performed By: #### C BC ####[address] Mean Corpuscular HGB Conc 34.1 g/dL Normal 32.5-35.6 [facility] Comment on above: Performed By: #### C BC ####[address] Monocytes (Bld) [#/Vol] 1.3 10*3/uL High 0.0-0.8 [facility] Comment on above: Performed By: #### C BC ####[address] Monocytes/100 WBC (Bld) 7.0 % Normal . [facility] Comment on above: Performed By: #### C BC ####[address] Neutrophils (Bld) [#/Vol] 13.3 10*3/uL High 1.8-7.7 [facility] Comment on above: Performed By: #### C BC ####[place] [id number] [facility] Neutrophils/100 WBC (Bld) 73.3 % Normal . [facility] Comment on above: Performed By: #### C BC ####[address] NRBC% 0.1 /100{WBC} Normal 0-0.5 [facility] Comment on above: Performed By: #### C BC ####[address] [address] [facility] Platelet mean volume (Bld) [Entitic vol] 7.1 fL Normal 6.6-10.1 [facility] Comment on above: Performed By: #### C BC ####[address] [address] [facility] Platelets (Bld) [#/Vol] 541 10*3/uL High 150-450 [facility] Comment on above: Performed By: #### C BC ####[address] [address] [facility] RBC (Bld) [#/Vol] 2.62 10*6/uL Low 3.90-5.60 [facility] Comment on above: Performed By: #### C BC ####[address] [address] [facility] WBC (Bld) [#/Vol] 18.2 10*3/uL High 4.1-10.5 [facility] Comment on above: Performed By: #### C BC ####[address] [address] [facility] Glucose Poct Glucometerson 0 07-23-2023 Glucose [Mass/Vol] 167 mg/dL Normal [facility] Comment on above: Result Comment: [place] Glucose Reference Range is dependent on time and content of last meal. Glucose of more than 200 mg/dL in a nonstressed, ambulatory subject supports the diagnosis of Diabetes Mellitus.PERFORMED BY:[address] [place] [place], [place] [phone] MEDICAL DIRECTORJOSEPH GARCIA M.D. Performed By: #### G VALERY ####Point of Care testing, Glucose [Mass/Vol] 174 mg/dL Normal [facility] Comment on above: Result Comment: [facility] Glucose Reference Range is dependent on time and content of last meal. Glucose of more than 200 mg/dL in a nonstressed, ambulatory subject supports the diagnosis of Diabetes Mellitus.PERFORMED BY:[address] [place], [place] [phone] MEDICAL DIRECTORJOSEPH GARCIA M.D. Performed By: #### G LULS ####Point of Care testing, Commemt1 Glu2: Cleaned Meter Normal [facility] Comment on above: Result Comment: PERF ORMED BY:[address] [address] [place] [place], [place] [phone] MEDICAL DIRECTORJOSEPH GARCIA M.D. Performed By: #### G LULS ####Point of Care testing, Glucose [Mass/Vol] 137 mg/dL Normal [facility] Comment on above: Result Comment: [facility] Glucose Reference Range is dependent on time and content of last meal. Glucose of more than 200 mg/dL in a nonstressed, ambulatory subject supports the diagnosis of Diabetes Mellitus. Performed By: #### G LULS ####Point of Care testing, Renal Function Panelon 07-23 Albumin [Mass/Vol] 2.3 g/dL Low 3.5-5.7 [facility] Comment on above: Performed By: #### R ENAL ####[address] [address] [facility] Anion gap [Moles/Vol] 11.3 mmol/L Normal 6.0-15.0 Th e [facility] Comment on above: Performed By: #### R ENAL ####[address] [address] [facility] Calcium [Mass/Vol] 7.3 mg/dL Low 8.6-10.3 [facility] Comment on above: Performed By: #### R ENAL ####[address] [address] [place] Chloride [Moles/Vol] 99 mmol/L Normal 98-107 [facility] Comment on above: Performed By: #### R ENAL ####[address] [place] [address] [facility] CO2 [Moles/Vol] 23.6 mmol/L Normal 21.0-31.0 [facility] Comment on above: Performed By: #### R ENAL ####[address] [address] [facility] Creatinine [Mass/Vol] 3.72 mg/dL Significan t change up 0.70-1.30 [facility] Comment on above: Performed By: #### R ENAL ####[address] [address] [facility] Creatinine Clr Calc Pharmacy 20.87 Normal [facility] Comment on above: Result Comment: PERF ORMED BY:[address] [place]racyLUZ [place], [place] [phone] MEDICAL DIRECTORJOSEPH GARCIA M.D. Performed By: #### R ENAL ####[address] [address] [facility] GFR/1.73 sq M.predicted MDRD (S/P/Bld) [Vol rate/Area] 16.632 mL/min/{1.73_m2} Normal [facility] Comment on above: Performed By: #### R ENAL ####[address] [address] [facility] Glucose [Mass/Vol] 118 mg/dL High 70-100 [facility] Comment on above: Result Comment: [place] Glucose Reference Range is dependent on time and content of last meal. Glucose of more than 200 mg/dL in a nonstressed, ambulatory subject supports the diagnosis of Diabetes Mellitus. ADA recommended reference range Performed By: #### R ENAL ####[address] [address] [facility] Phosphate [Mass/Vol] 4.7 mg/dL High 2.5-4.5 [facility] Comment on above: Performed By: #### R ENAL ####[place] [id number] [facility] Potassium [Moles/Vol] 3.9 mmol/L Normal 3.5-5.1 [facility] Comment on above: Performed By: #### R ENAL ####[id number] [place] Sodium [Moles/Vol] 130 mmol/L Low 136-145 [facility] Comment on above: Performed By: #### R ENAL ####[place] [id number] [facility] Urea nitrogen [Mass/Vol] 25 mg/dL Normal 7-25 [facility] Comment on above: Performed By: #### R ENAL ####[id number] [facility] Glucose Poct Glucometerson 0 07-22-2023 Glucose [Mass/Vol] 138 mg/dL Normal [facility] Comment on above: Result Comment: [place] Glucose Reference Range is dependent on time and content of last meal. Glucose of more than 200 mg/dL in a nonstressed, ambulatory subject supports the diagnosis of Diabetes Mellitus.PERFORMED BY:[address] [place], [place] [phone] MEDICAL DIRECTORJOSEPH GARCIA M.D. Performed By: #### G LULS ####Point of Care testing, Glucose [Mass/Vol] 108 mg/dL Normal [facility] Comment on above: Result Comment: [place] Glucose Reference Range is dependent on time and content of last meal. Glucose of more than 200 mg/dL in a nonstressed, ambulatory subject supports the diagnosis of Diabetes Mellitus.PERFORMED BY:[address] [address] [place] [place], [place] [phone] MEDICAL DIRECTORJOSEPH GARCIA M.D. Performed By: #### G LULS ####Point of Care testing, Commemt1 Glu2: Cleaned Meter Normal [facility] Comment on above: Result Comment: PERF ORMED BY:[address] [address] [address] [place], [place] [phone] MEDICAL SILVIA GARCIA M.D. Performed By: #### G LULS ####Point of Care testing, Glucose [Mass/Vol] 131 mg/dL Normal [facility] Comment on above: Result Comment: [place] Glucose Reference Range is dependent on time and content of last meal. Glucose of more than 200 mg/dL in a nonstressed, ambulatory subject supports the diagnosis of Diabetes Mellitus. Performed By: #### G LULS ####Point of Care testing, Commemt1 Glu2: Cleaned Meter Normal [facility] Comment on above: Result Comment: PERF ORMED BY:[address] LATamikoTracyLUZ [place], [place] [phone] MEDICAL DIRECTORJOSEPH GARCIA M.D. Performed By: #### G LULS ####Point of Care testing, Glucose [Mass/Vol] 121 mg/dL Normal [facility] Comment on above: Result Comment: [facility] Glucose Reference Range is dependent on time and content of last meal. Glucose of more than 200 mg/dL in a nonstressed, ambulatory subject supports the diagnosis of Diabetes Mellitus. Performed By: #### G LULS ####Point of Care testing, Renal Function Panelon 07-22 Albumin [Mass/Vol] 2.5 g/dL Low 3.5-5.7 [facility] Comment on above: Performed By: #### R ENAL ####[address] [address] [facility] Anion gap [Moles/Vol] 10.9 mmol/L Normal 6.0-15.0 Th e [facility] Comment on above: Performed By: #### R ENAL ####[address] [address] [facility] Calcium [Mass/Vol] 7.5 mg/dL Low 8.6-10.3 [facility] Comment on above: Performed By: #### R ENAL ####[address] [address] [place] Chloride [Moles/Vol] 100 mmol/L Normal 98-107 [facility] Comment on above: Performed By: #### R ENAL ####[facility] [place] [address] [facility] CO2 [Moles/Vol] 25.1 mmol/L Normal 21.0-31.0 [facility] Comment on above: Performed By: #### R ENAL ####[address] [address] [facility] Creatinine [Mass/Vol] 2.84 mg/dL Significan t change up 0.70-1.30 [facility] Comment on above: Performed By: #### R ENAL ####[address] [address] [facility] Creatinine Clr Calc Pharmacy 27.27 Normal [facility] Comment on above: Result Comment: PERF ORMED BY:[address] [place]racyLUZ [place], [place] [phone] MEDICAL DIRECTORJOSEPH GARCIA M.D. Performed By: #### R ENAL ####[address] [address] [facility] GFR/1.73 sq M.predicted MDRD (S/P/Bld) [Vol rate/Area] 22.995 mL/min/{1.73_m2} Normal [facility] Comment on above: Performed By: #### R ENAL ####[address] [address] [facility] Glucose [Mass/Vol] 103 mg/dL High 70-100 [facility] Comment on above: Result Comment: [place] Glucose Reference Range is dependent on time and content of last meal. Glucose of more than 200 mg/dL in a nonstressed, ambulatory subject supports the diagnosis of Diabetes Mellitus. ADA recommended reference range Performed By: #### R ENAL ####[address] [address] [facility] Phosphate [Mass/Vol] 4.0 mg/dL Normal 2.5-4.5 [facility] Comment on above: Performed By: #### R ENAL ####[address] [address] [facility] Potassium [Moles/Vol] 4.0 mmol/L Normal 3.5-5.1 [facility] Comment on above: Performed By: #### R ENAL ####[address] [address] [place] Sodium [Moles/Vol] 132 mmol/L Low 136-145 [facility] Comment on above: Performed By: #### R ENAL ####[address] Urea nitrogen [Mass/Vol] 17 mg/dL Normal 7-25 [facility] Comment on above: Performed By: #### R ENAL ####[address] Acanthocytes [Presence] in B lood by Light microscopyOrdered By: Tello Nava on 07-21-2023 Acanthocytes LM Ql (Bld) Slight [facility] Anisocytosis [Presence] in B lood by Light microscopyOrdered By: Tello Nava on 07-21-2023 Anisocytosis Ql (Bld) Moderate Normal [facility] Comment on above: Performed By: #### S CAN CBC ####[address] Basic Metabolic Panelon 06-27 Anion gap [Moles/Vol] 10.2 mmol/L Normal 6.0-15.0 [facility] Comment on above: Performed By: #### F E PRO, CRP, BMP ####[address] Calcium [Mass/Vol] 7.3 mg/dL Low 8.6-10.3 [facility] Comment on above: Performed By: #### F E PRO, CRP, BMP ####[address] Chloride [Moles/Vol] 96 mmol/L Low 98-107 [facility] Comment on above: Performed By: #### F E PRO, CRP, BMP ####[address] CO2 [Moles/Vol] 28.9 mmol/L Normal 21.0-31.0 [facility] Comment on above: Performed By: #### F E PRO, CRP, BMP ####[address] [place] [address] [facility] Creatinine [Mass/Vol] 4.21 mg/dL Significan t change up 0.70-1.30 The [facility] Comment on above: Performed By: #### F E PRO, CRP, BMP ####[place] [id number] [facility] Creatinine Clr Calc Pharmacy 18.37 Normal [facility] Comment on above: Result Comment: PERF ORMED BY:[address] [place], [place] [phone] MEDICAL DIRECTORJOSEPH GARCIA M.D. Performed By: #### F E PRO, CRP, BMP ####[address] GFR/1.73 sq M.predicted MDRD (S/P/Bld) [Vol rate/Area] 14.338 mL/min/{1.73_m2} Normal [facility] Comment on above: Performed By: #### F E PRO, CRP, BMP ####[address] Glucose [Mass/Vol] 112 mg/dL High 70-100 [facility] Comment on above: Result Comment: [facility] Glucose Reference Range is dependent on time and content of last meal. Glucose of more than 200 mg/dL in a nonstressed, ambulatory subject supports the diagnosis of Diabetes Mellitus. ADA recommended reference range Performed By: #### F E PRO, CRP, BMP ####[address] Potassium [Moles/Vol] 4.1 mmol/L Normal 3.5-5.1 [facility] Comment on above: Performed By: #### F E PRO, CRP, BMP ####[address] Sodium [Moles/Vol] 131 mmol/L Low 136-145 [facility] Comment on above: Performed By: #### F E PRO, CRP, BMP ####[address] Urea nitrogen [Mass/Vol] 34 mg/dL High 7-25 [facility] Comment on above: Performed By: #### F E PRO, CRP, BMP ####[address] [address] [facility] C reactive protein [Mass/vol ume] in Serum or PlasmaOrdered By: Michael Ramírez on 07-21-2023 CRP [Mass/Vol] 8.6 mg/dL 0.0-0.5 [facility] C-Reactive Proteinon 024 C-Reactive Protein 8.6 mg/dL High 0.0-0.5 [facility] Comment on above: Result Comment: PERF ORMED BY:[place] [address] [place] [place], [place] [phone] MEDICAL DIRECTORJOSEPH GARCIA M.D. Performed By: #### F E PRO, CRP, BMP ####[address] [address] [facility] FE PROon 07-21-2023 % Iron Saturation 27.0 % Normal 20-50 The [facility] Comment on above: Performed By: #### F E PRO, CRP, BMP ####[address] [address] [facility] Total Iron Binding Capacity 185 ug/dL Low 255-450 [facility] Comment on above: Performed By: #### F E PRO, CRP, BMP ####[address] [address] [facility] Ferritin [Mass/volume] in Se rum or PlasmaOrdered By: Rancho Kay on 07-21-2023 Ferritin [Mass/Vol] 1089.8 ng/mL High 23.9-336.2 [facility] Comment on above: Result Comment: PERF ORMED BY:[place] [address] [place], [place] [phone] MEDICAL DIRECTORJOSEPH GARCIA M.D. Performed By: #### F E PRO, CRP, BMP ####[address] [address] [facility] Glucose Poct Glucometerson 0 2-26-2024 Commemt1 Glu2: Cleaned Meter Normal [facility] Comment on above: Result Comment: PERF ORMED BY:[place] [address] [address] [place]ATracy[place]Z [place], [place] [phone] MEDICAL DIRECTORJOSEPH GARCIA M.D. Performed By: #### G LULS ####Point of Care testing, Glucose [Mass/Vol] 155 mg/dL Normal [facility] Comment on above: Result Comment: [place] Glucose Reference Range is dependent on time and content of last meal. Glucose of more than 200 mg/dL in a nonstressed, ambulatory subject supports the diagnosis of Diabetes Mellitus. Performed By: #### G LULS ####Point of Care testing, Commemt1 Glu2: Cleaned Meter Normal [facility] Comment on above: Result Comment: PERF ORMED BY:[address]AT[address]LU[address] [place], [place] [phone] MEDICAL DIRECTORJOSEPH GARCIA M.D. Performed By: #### G LULS ####Point of Care testing, Glucose [Mass/Vol] 161 mg/dL Normal [facility] Comment on above: Result Comment: [place] [facility] Glucose Reference Range is dependent on time and content of last meal. Glucose of more than 200 mg/dL in a nonstressed, ambulatory subject supports the diagnosis of Diabetes Mellitus. Performed By: #### G LULS ####Point of Care testing, Commemt1 Glu2: Cleaned Meter Normal [facility] Comment on above: Result Comment: PERF ORMED BY:[address]YAT[address]LU[address] [place], [place] [phone] MEDICAL DIRECTORJOSEPH GARCIA M.D. Performed By: #### G LULS ####Point of Care testing, Glucose [Mass/Vol] 121 mg/dL Normal [facility] Comment on above: Result Comment: [place] Glucose Reference Range is dependent on time and content of last meal. Glucose of more than 200 mg/dL in a nonstressed, ambulatory subject supports the diagnosis of Diabetes Mellitus. Performed By: #### G LULS ####Point of Care testing, Hypochromia LM Ql (Bld)Order ed By: Tello Nava on 07-21-2023 Hypochromia Ql (Bld) Slight [facility] Iron [Mass/volume] in Serum or PlasmaOrdered By: Rancho Rahul on 07-21-2023 Iron [Mass/Vol] 50 ug/dL Normal 50-212 [facility] Comment on above: Performed By: #### F E PRO, CRP, BMP ####[facility] [id number] [place] [id number] [facility] Iron binding capacity [Mass/ volume] in Serum or PlasmaOrdered By: Rancho Rahul on 07-21-2023 Iron binding capacity [Mass/Vol] 185 ug/dL 255-450 [facility] Iron saturation [Mass Fracti on] in Serum or PlasmaOrdered By: Rancho Rahul on 07-21-2023 Iron saturation [Mass fraction] 27.0 % 20-50 [facility] Microcytes LM Ql (Bld)Ordere d By: Tello Nava on 07-21-2023 Microcytes Ql (Bld) Moderate [facility] Ovalocyte detectionOrdered B y: Tello Nava on 07-21-2023 Ovalocytes LM Ql (Bld) Slight Fi [facility] Platelet adequacy [Presence] in Blood by Light microscopyOrdered By: Tello Nava on 07-21-2023 Platelets LM Ql (Bld) Increased Normal [facility] Platelet morphology finding [Identifier] in BloodOrdered By: Tello Nava on 07-21-2023 Platelet morphology finding Nom (Bld) Normal Normal [facility] Poikilocytosis [Presence] in Blood by Light microscopyOrdered By: Tello Nava on 07-21-2023 Poikilocytosis LM Ql (Bld) Slight [facility] Polychromasia [Presence] in Blood by Light microscopyOrdered By: Tello Nava on 07-21-2023 Polychromasia LM Ql (Bld) Slight [facility] RBC morphologyOrdered By: Mayelin Nava on 02-26-2024 RBC morphology finding Nom (Bld) N/A [facility] Scan and CBCon 07-21-2023 Acanthocytes Slight Normal [facility] Comment on above: Performed By: #### S CAN CBC ####[address] Basophils (Bld) [#/Vol] 0.1 10*3/uL Normal 0.0-0.2 [facility] Comment on above: Performed By: #### S CAN CBC ####[address] Basophils/100 WBC (Bld) 0.8 % Normal . [facility] Comment on above: Performed By: #### S CAN CBC ####[address] Eosinophils (Bld) [#/Vol] 0.5 10*3/uL High 0.0-0.45 [facility] Comment on above: Performed By: #### S CAN CBC ####[address] Eosinophils/100 WBC (Bld) 2.7 % Normal . [facility] Comment on above: Performed By: #### S CAN CBC ####[address] Erythrocyte distribution width (RBC) [Ratio] 17.3 % High 12.0-14.8 [facility] Comment on above: Performed By: #### S CAN CBC ####[address] Hematocrit (Bld) [Volume fraction] 22.6 % Low 38.8-50.0 [facility] Comment on above: Performed By: #### S CAN CBC ####[address] Hemoglobin (Bld) [Mass/Vol] 7.7 g/dL Low 13.0-17.0 [facility] Comment on above: Performed By: #### S CAN CBC ####[address] Hypochromasia Slight Normal [facility] Comment on above: Performed By: #### S CAN CBC ####[address] Lymphocytes (Bld) [#/Vol] 3.0 10*3/uL Normal 1.00-4.8 [facility] Comment on above: Performed By: #### S CAN CBC ####[address] Lymphocytes/100 WBC (Bld) 15.3 % Normal . [facility] Comment on above: Performed By: #### S CAN CBC ####[address] MCH (RBC) [Entitic mass] 29.4 pg Normal 27.5-35.2 [facility] Comment on above: Performed By: #### S CAN CBC ####[address] MCV (RBC) [Entitic vol] 85.8 fL Normal 83.5-101 [facility] Comment on above: Performed By: #### S CAN CBC ####[address] Mean Corpuscular HGB Conc 34.2 g/dL Normal 32.5-35.6 [facility] Comment on above: Performed By: #### S CAN CBC ####[address] Microcytosis Moderate Normal [facility] Comment on above: Performed By: #### S CAN CBC ####[address] Monocytes (Bld) [#/Vol] 1.6 10*3/uL High 0.0-0.8 [facility] Comment on above: Performed By: #### S CAN CBC ####[address] Monocytes/100 WBC (Bld) 8.0 % Normal . [facility] Comment on above: Performed By: #### S CAN CBC ####[address] [address] [facility] Neutrophils (Bld) [#/Vol] 14.6 10*3/uL High 1.8-7.7 [facility] Comment on above: Performed By: #### S CAN CBC ####[address] [address] [facility] Neutrophils/100 WBC (Bld) 73.2 % Normal . [facility] Comment on above: Performed By: #### S CAN CBC ####[address] [address] [facility] NRBC% 0.0 /100{WBC} Normal 0-0.5 [facility] Comment on above: Performed By: #### S CAN CBC ####[address] [address] [facility] Ovalocytes Slight Normal [facility] Comment on above: Performed By: #### S CAN CBC ####[address] [address] [facility] Platelet Estimate Increased Normal Normal The [facility] Comment on above: Performed By: #### S CAN CBC ####[place] [id number] [facility] Platelet mean volume (Bld) [Entitic vol] 7.0 fL Normal 6.6-10.1 [facility] Comment on above: Performed By: #### S CAN CBC ####[address] [address] [facility] Platelet Morphology Normal Normal Normal [facility] Comment on above: Result Comment: PERF ORMED BY:[address] [place], [place] [phone] MEDICAL DIRECTORJOSEPH GARCIA M.D. Performed By: #### S CAN CBC ####[address] [address] [facility] Platelets (Bld) [#/Vol] 489 10*3/uL High 150-450 [facility] Comment on above: Performed By: #### S CAN CBC ####[place] [address] Poikilocytosis Slight Normal [facility] Comment on above: Performed By: #### S CAN CBC ####[place] [id number] [facility] Polychromasia Slight Normal [facility] Comment on above: Performed By: #### S CAN CBC ####[address] RBC (Bld) [#/Vol] 2.64 10*6/uL Low 3.90-5.60 [facility] Comment on above: Performed By: #### S CAN CBC ####[address] Schistocytes Slight Normal [facility] Comment on above: Performed By: #### S CAN CBC ####[address] WBC (Bld) [#/Vol] 19.9 10*3/uL High 4.1-10.5 [facility] Comment on above: Performed By: #### S CAN CBC ####[address] Schistocytes [Presence] in B lood by Light microscopyOrdered By: Tello Nava on 07-21-2023 Schistocytes LM Ql (Bld) Slight [facility] Transferrin [Mass/volume] in Serum or PlasmaOrdered By: Rancho Kay on 07-21-2023 Transferrin [Mass/Vol] 132 mg/dL Low 203-362 [facility] Comment on above: Performed By: #### F E PRO, CRP, BMP ####[address] Amphetamine Screen Ql (U)Ord ered By: Alfonso Chavez on 07-20-2023 Amphetamines Ql (U) Negative Negative [facility] Automated erythrocytes count in urine sediment (number/area)Ordered By: Tello Nava on 07-20-2023 RBC Auto (Urine sed) [#/Area] Innumerable [HPF] 0-4 [facility] Automated leukocytes count i n urine sediment (number/area)Ordered By: Tello Nava on 07-20-2023 WBC Auto (Urine sed) [#/Area] 20-49 [HPF] 0-4 [facility] Automated urine color determ inationOrdered By: Tello Nava on 07-20-2023 Color (U) Rhea Critically abnormal Yellow [facility] Comment on above: Order Comment: Name Collection Type:: Clean-Voided Midstream Performed By: #### A DDONUAPLUS, ANTONIO, UCREA, CUU ####[address] Automated urine hyaline cast s count (number/volume)Ordered By: Tello Nava on 07-20-2023 Hyaline casts Auto (U) [#/Vol] 1-2 [LPF] 0-1 [facility] Barbiturates [Presence] in U rine by Screen methodOrdered By: Alfonso Chavez on 07-20-2023 Barbiturates Screen Ql (U) Negative Negative [facility] Basic Metabolic Panelon 06-27 Anion gap [Moles/Vol] 9.6 mmol/L Normal 6.0-15.0 [facility] Comment on above: Performed By: #### B MP, SCAN CBC ####[place] [address] [place] [address] [facility] Calcium [Mass/Vol] 7.3 mg/dL Low 8.6-10.3 [facility] Comment on above: Performed By: #### B MP, SCAN CBC ####[place] [address] [place] [address] [facility] Chloride [Moles/Vol] 97 mmol/L Low 98-107 [facility] Comment on above: Performed By: #### B MP, SCAN CBC ####[place] [address] [place] [address] [facility] CO2 [Moles/Vol] 29.3 mmol/L Normal 21.0-31.0 [facility] Comment on above: Performed By: #### B MP, SCAN CBC ####[facility] [place] [address] [facility] Creatinine [Mass/Vol] 3.39 mg/dL Significan t change up 0.70-1.30 [facility] Comment on above: Performed By: #### B MP, SCAN CBC ####[place] [address] [place] [address] [facility] Creatinine Clr Calc Pharmacy 22.74 Normal [facility] Comment on above: Result Comment: PERF ORMED BY:[address] [place], [place] [phone] MEDICAL DIRECTORJOSEPH GARCIA M.D. Performed By: #### B MP, SCAN CBC ####[place] [id number] [facility] GFR/1.73 sq M.predicted MDRD (S/P/Bld) [Vol rate/Area] 18.594 mL/min/{1.73_m2} Normal [facility] Comment on above: Performed By: #### B MP, SCAN CBC ####[place] [id number] [facility] Glucose [Mass/Vol] 145 mg/dL High 70-100 [facility] Comment on above: Result Comment: [place] Glucose Reference Range is dependent on time and content of last meal. Glucose of more than 200 mg/dL in a nonstressed, ambulatory subject supports the diagnosis of Diabetes Mellitus. ADA recommended reference range Performed By: #### B MP, SCAN CBC ####[address] [address] [facility] Potassium [Moles/Vol] 3.9 mmol/L Normal 3.5-5.1 [facility] Comment on above: Performed By: #### B MP, SCAN CBC ####[place] [id number] [facility] Sodium [Moles/Vol] 132 mmol/L Low 136-145 [facility] Comment on above: Performed By: #### B MP, SCAN CBC ####[place] [id number] [place] Urea nitrogen [Mass/Vol] 27 mg/dL High 7-25 [facility] Comment on above: Performed By: #### B MP, SCAN CBC ####[facility] [id number] Benzodiazepines Screen Ql (U )Ordered By: Alfonso Chavez on 07-20-2023 Benzodiazepines Ql (U) Positive Negative [facility] Benzoylecgonine [Presence] i n Urine by Screen methodOrdered By: Alfonso Chavez on 07-20-2023 Benzoylecgonine Screen Ql (U) Negative Negative [facility] Bilirubin Test strip Ql (U)O rdered By: Tello Nava on 07-20-2023 Bilirubin Ql (U) 2+ Negative [facility] Cannabinoids [Presence] in U rine by Screen methodOrdered By: Alfonso Chavez on 07-20-2023 Cannabinoids Screen Ql (U) See comment Negative [facility] Casts typing in urine sedime nt by light microscopyOrdered By: Tello Nava on 07-20-2023 Casts LM Nom (Urine sed) None seen [LPF] None Seen [facility] Coarse granular casts count in urine sediment by microscopy low power field (number/aOrdered By: Tello Nava on 07-20-2023 Coarse Granular Casts LM.LPF (Urine sed) [#/Area] 0-1 [LPF] 0-1 [facility] Creatinine [Mass/volume] in UrineOrdered By: Tello Nava on 07-20-2023 Creatinine (U) [Mass/Vol] 200.0 mg/dL 14.0-26.0 [facility] Creatinine, Urine (Random)on 07-20-2023 Creatinine, Urine (Random) 200.0 mg/dL High 14.0-26.0 [facility] Comment on above: Performed By: #### A DDONUAPLUS, ANTONIO, UCREA, CUU ####[facility] [id number] Dipstick and Microscopicon 0 07-20-2023 Appearance (U) Turbid Critically abnormal Clear [facility] Comment on above: Order Comment: Name Collection Type:: Clean-Voided Midstream Performed By: #### A DDONUAPLUS, ANTONIO, UCREA, CUU ####[address] Bacteria,Urine None Seen Normal None Seen [facility] Comment on above: Order Comment: Name Collection Type:: Clean-Voided Midstream Performed By: #### A DDONUAPLUS, ANTONIO, UCREA, CUU ####[address] Bilirubin,Urine 2+ High Negative [facility] Comment on above: Order Comment: Name Collection Type:: Clean-Voided Midstream Performed By: #### A DDONUAPLUS, ANTONIO, UCREA, CUU ####[address] Coarse Granular Casts,Urine 0-1 Normal 0-1 [facility] Comment on above: Order Comment: Name Collection Type:: Clean-Voided Midstream Performed By: #### A DDONUAPLUS, ANTONIO, UCREA, CUU ####[address] Glucose Ql (U) 100 mg/dL High Normal [facility] Comment on above: Order Comment: Name Collection Type:: Clean-Voided Midstream Performed By: #### A DDONUAPLUS, ANTONIO, UCREA, CUU ####[address] Hyaline Casts,Urine 1-2 High 0-[address] [facility] Comment on above: Order Comment: Name Collection Type:: Clean-Voided Midstream Performed By: #### A DDONUAPLUS, ANTONIO, UCREA, CUU ####[address] Ketones Ql (U) Trace High Negative [facility] Comment on above: Order Comment: Name Collection Type:: Clean-Voided Midstream Performed By: #### A DDONUAPLUS, ANTONIO, UCREA, CUU ####[place] [address] [place] [id number] [facility] Leukocyte esterase Test strip Ql (U) 2+ High Negative [facility] Comment on above: Order Comment: Name Collection Type:: Clean-Voided Midstream Performed By: #### A DDONUAPLUS, ANTONIO, UCREA, CUU ####[place] [address] [place] [address] [facility] Nitrite,Urine Positive High Negative [facility] Comment on above: Order Comment: Name Collection Type:: Clean-Voided Midstream Performed By: #### A DDONUAPLUS, ANTONIO, UCREA, CUU ####[place] [id number] [facility] Occult Blood,Urine 3+ High Negative [facility] Comment on above: Order Comment: Name Collection Type:: Clean-Voided Midstream Result Comment: PERF ORMED BY:[place] [address] [address] [place], [place] [phone] MEDICAL DIRECTORJOSEPH GARCIA M.D. Performed By: #### A DDONUAPLUS, ANTONIO, UCREA, CUU ####[address] Other Casts,Urine None Seen Normal None Seen The [facility] Comment on above: Order Comment: Name Collection Type:: Clean-Voided Midstream Result Comment: PERF ORMED BY:[place] [address] [address] [place], [place] [phone] MEDICAL DIRECTORJOSEPH GARCIA M.D. Performed By: #### A DDONUAPLUS, ANTONIO, UCREA, CUU ####[place] [id number] [facility] RBC,Urine Innumerable High 0-4 [facility] Comment on above: Order Comment: Name Collection Type:: Clean-Voided Midstream Performed By: #### A DDONUAPLUS, ANTONIO, UCREA, CUU ####[place] [id number] [facility] Red Blood Cell Casts,Urine 0-1 High None Seen [facility] Comment on above: Order Comment: Name Collection Type:: Clean-Voided Midstream Performed By: #### A DDONUAPLUS, ANTONIO, UCREA, CUU ####[address] Specificy Marydel,Urine 1.030 Normal 1.001-1.030 [facility] Comment on above: Order Comment: Name Collection Type:: Clean-Voided Midstream Performed By: #### A DDONUAPLUS, ANTONIO, UCREA, CUU ####[address] Squamous Epithelial Cell,Urine 3-4 High 0-2 [facility] Comment on above: Order Comment: Name Collection Type:: Clean-Voided Midstream Performed By: #### A DDONUAPLUS, ANTONIO, UCREA, CUU ####[address] Urobilinogen,Urine Normal Normal Normal [facility] Comment on above: Order Comment: Name Collection Type:: Clean-Voided Midstream Performed By: #### A DDONUAPLUS, ANTONIO, UCREA, CUU ####[address] WBC,Urine 20-49 High 0-4 [facility] Comment on above: Order Comment: Name Collection Type:: Clean-Voided Midstream Performed By: #### A DDONUAPLUS, ANTONIO, UCREA, CUU ####[address] Drug Screen,Urineon 07-20-19 24 Amphetamine Screen,Urine Negative Normal Negative [facility] Comment on above: Order Comment: UDS t o be sent to [facility] Performed By: #### U RDS ####[address] Barbiturate Screen,Urine Negative Normal Negative [facility] Comment on above: Order Comment: UDS t o be sent to [facility] Performed By: #### U RDS ####[facility] [place] [address] [facility] Benzodiazepines Screen,Urine Positive High Negative [facility] Comment on above: Order Comment: UDS t o be sent to [facility] Performed By: #### U RDS ####[address] [address] [facility] Cannabinoid Screen,Urine Normal Negative [facility] Comment on above: Order Comment: UDS t o be sent to [facility] Result Comment: [facility] These are unconfirmed results and should not be used for legal purposes. Drug Cut-Off Concentration: AMPH 1000 ng/mL KO 200 ng/mL TEDDY 200 ng/mL COCM 300 ng/mL OP 300 ng/mL PCP 25 ng/mL THC 20 ng/mLPERFORMED BY:[address] [place], [place] [phone] MEDICAL DIRECTORJOSEPH GARCIA M.D. Performed By: #### U RDS ####[place] [id number] [facility] Cocaine Screen,Urine Negative Normal Negative [facility] Comment on above: Order Comment: UDS t o be sent to [facility] Performed By: #### U RDS ####[address] [address] [facility] [facility] Opiate Screen,Urine Normal Negative [facility] Comment on above: Order Comment: UDS t o be sent to [facility] Result Comment: [facility] Performed By: #### U RDS ####[address] [address] [facility] Phencyclidine Screen,Urine Negative Normal Negative [facility] Comment on above: Order Comment: UDS t o be sent to [facility] Performed By: #### U RDS ####[place] [id number] [facility] Glucose Poct Glucometerson 0 07-20-2023 Glucose [Mass/Vol] 157 mg/dL Normal [facility] Comment on above: Result Comment: [facility] Glucose Reference Range is dependent on time and content of last meal. Glucose of more than 200 mg/dL in a nonstressed, ambulatory subject supports the diagnosis of Diabetes Mellitus.PERFORMED BY:[address] [address] [address] [place] [place], [place] [phone] MEDICAL DIRECTORJOSEPH GARCIA M.D. Performed By: #### G LULS ####Point of Care testing, Commemt1 Glu2: Cleaned Meter Normal [facility] Comment on above: Result Comment: PERF ORMED BY:[address] [address] [address] LATamikoTracyLUZ [place], [place] [phone] MEDICAL DIRECTORJOSEPH GARCIA M.D. Performed By: #### G LULS ####Point of Care testing, Glucose [Mass/Vol] 134 mg/dL Normal [facility] Comment on above: Result Comment: [place] Glucose Reference Range is dependent on time and content of last meal. Glucose of more than 200 mg/dL in a nonstressed, ambulatory subject supports the diagnosis of Diabetes Mellitus. Performed By: #### G LULS ####Point of Care testing, Commemt1 Glu2: Cleaned Meter Normal [facility] Comment on above: Result Comment: PERF ORMED BY:[address] [address] [address]Z [place], [place] [phone] MEDICAL SILVIA GARCIA M.D. Performed By: #### G LULS ####Point of Care testing, Glucose [Mass/Vol] 138 mg/dL Normal [facility] Comment on above: Result Comment: [place] Glucose Reference Range is dependent on time and content of last meal. Glucose of more than 200 mg/dL in a nonstressed, ambulatory subject supports the diagnosis of Diabetes Mellitus. Performed By: #### G LULS ####Point of Care testing, Glucose [Mass/Vol] 152 mg/dL Normal [facility] Comment on above: Result Comment: [place] Glucose Reference Range is dependent on time and content of last meal. Glucose of more than 200 mg/dL in a nonstressed, ambulatory subject supports the diagnosis of Diabetes Mellitus.PERFORMED BY:[address] [address] [address] LATamikoTracyLUZ [place], [place] [phone] MEDICAL DIRECTORJOSEPH GARCIA M.D. Performed By: #### G LULS ####Point of Care testing, Ketones Auto test strip (U) [Mass/Vol]Ordered By: Tello Nava on 07-20-2023 Ketones (U) [Mass/Vol] Trace Negative [facility] MISC LABon 07-20-2023 MISC LAB Normal [facility] Comment on above: Order Comment: Misc Test Name: MONITOR SCREEN 10 DRUG CLASS PROFILE [id number] URINE Result Comment: See report. Scanned copy available in EMR.PERFORMED BY:[address] [address] [address] [place], [place] [phone] MEDICAL DIRECTORJOSEPH GARCIA M.D. Performed By: #### M ISC LAB ####[address] [place] [address] [facility] Nitrite Test strip Ql (U)Ord ered By: Tello Nava on 07-20-2023 Nitrite Ql (U) Positive Negative [facility] No Panel InformationOrdered By: Tello Nava on 07-20-2023 See comment [facility] Opiates [Presence] in Urine by Screen methodOrdered By: Alfonso Chavez on 07-20-2023 Opiates Screen Ql (U) See comment Negative [facility] Phencyclidine Screen Ql (U)O rdered By: Alfonso Chavez on 07-20-2023 Phencyclidine Ql (U) Negative Negative [facility] Scan and CBCon 07-20-2023 Anisocytosis Ql (Bld) Slight Normal [facility] Comment on above: Performed By: #### B MP, SCAN CBC ####[address] [place] [address] [place] Basophils (Bld) [#/Vol] 0.2 10*3/uL Normal 0.0-0.2 [facility] Comment on above: Performed By: #### B MP, SCAN CBC ####[address] [address] [place] Basophils/100 WBC (Bld) 0.9 % Normal . [facility] Comment on above: Performed By: #### B MP, SCAN CBC ####[address] Eosinophils (Bld) [#/Vol] 0.4 10*3/uL Normal 0.0-0.45 [facility] Comment on above: Performed By: #### B MP, SCAN CBC ####[address] Eosinophils/100 WBC (Bld) 2.0 % Normal . [facility] Comment on above: Performed By: #### B MP, SCAN CBC ####[address] Erythrocyte distribution width (RBC) [Ratio] 17.1 % High 12.0-14.8 [facility] Comment on above: Performed By: #### B MP, SCAN CBC ####[address] Hematocrit (Bld) [Volume fraction] 23.7 % Low 38.8-50.0 [facility] Comment on above: Performed By: #### B MP, SCAN CBC ####[address] Hemoglobin (Bld) [Mass/Vol] 8.2 g/dL Low 13.0-17.0 [facility] Comment on above: Performed By: #### B MP, SCAN CBC ####[address] Lymphocytes (Bld) [#/Vol] 2.5 10*3/uL Normal 1.00-4.8 [facility] Comment on above: Performed By: #### B MP, SCAN CBC ####[address] Lymphocytes/100 WBC (Bld) 12.3 % Normal . [facility] Comment on above: Performed By: #### B MP, SCAN CBC ####[address] MCH (RBC) [Entitic mass] 29.4 pg Normal 27.5-35.2 [facility] Comment on above: Performed By: #### B MP, SCAN CBC ####[address] MCV (RBC) [Entitic vol] 85.3 fL Normal 83.5-101 [facility] Comment on above: Performed By: #### B MP, SCAN CBC ####[address] Mean Corpuscular HGB Conc 34.5 g/dL Normal 32.5-35.6 [facility] Comment on above: Performed By: #### B MP, SCAN CBC ####[address] Microcytosis Slight Normal [facility] Comment on above: Performed By: #### B MP, SCAN CBC ####[address] Monocytes (Bld) [#/Vol] 1.8 10*3/uL High 0.0-0.8 [facility] Comment on above: Performed By: #### B MP, SCAN CBC ####[address] Monocytes/100 WBC (Bld) 8.8 % Normal . [facility] Comment on above: Performed By: #### B MP, SCAN CBC ####[address] Neutrophils (Bld) [#/Vol] 15.2 10*3/uL High 1.8-7.7 [facility] Comment on above: Performed By: #### B MP, SCAN CBC ####[address] Neutrophils/100 WBC (Bld) 76.0 % Normal . [facility] Comment on above: Performed By: #### B MP, SCAN CBC ####[address] NRBC% 0.0 /100{WBC} Normal 0-0.5 [facility] Comment on above: Performed By: #### B MP, SCAN CBC ####[address] [address] [facility] Platelet Estimate Increased Normal Normal The [facility] Comment on above: Performed By: #### B MP, SCAN CBC ####[address] [place] [address] [facility] Platelet mean volume (Bld) [Entitic vol] 7.1 fL Normal 6.6-10.1 [facility] Comment on above: Performed By: #### B MP, SCAN CBC ####[address] [address] [facility] Platelet Morphology Normal Normal Normal [facility] Comment on above: Result Comment: PERF ORMED BY:[address] [place] [place], [place] [phone] MEDICAL DIRECTORJOSEPH GARCIA M.D. Performed By: #### B MP, SCAN CBC ####[address] [address] [facility] Platelets (Bld) [#/Vol] 467 10*3/uL High 150-450 [facility] Comment on above: Performed By: #### B MP, SCAN CBC ####[address] [address] [facility] Polychromasia Slight Normal [facility] Comment on above: Performed By: #### B MP, SCAN CBC ####[address] [address] [facility] RBC (Bld) [#/Vol] 2.78 10*6/uL Low 3.90-5.60 [facility] Comment on above: Performed By: #### B MP, SCAN CBC ####[address] [address] [facility] WBC (Bld) [#/Vol] 20.0 10*3/uL High 4.1-10.5 [facility] Comment on above: Performed By: #### B MP, SCAN CBC ####[place] [id number] [facility] Sodium [Moles/volume] in Uri neOrdered By: Tello Nava on 07-20-2023 Sodium (U) [Moles/Vol] 19 mmol/L Normal [facility] Comment on above: Result Comment: No r eference range establishedPERFORMED BY:[address] [address] [address] ZAMANLUZ [place], [place] [phone] MEDICAL DIRECTORJOSEPH GARCIA M.D. Performed By: #### A ANTONIO EVANS, [facility], U ####[address] [place] [address] [facility] Specific gravity Auto test s trip (U) [Rel density]Ordered By: Tello Nava on 07-20-2023 Specific gravity (U) [Rel density] 1.030 1.001-1.030 [facility] Squamous epithelial cells de tection in urine sediment by light microscopyOrdered By: Tello Nava on 07-20-2023 Epithelial cells.squamous LM Ql (Urine sed) 3-4 [HPF] 0-2 [facility] Urine Cultureon 07-20-2023 Bacteria identified Cx Nom (U) Normal [facility] Comment on above: Performed By: #### A ANTONIO EVANS, REA, CUU ####[place] [address] [place] [id number] [facility] Urine bacteria detection by automated methodOrdered By: Tello Nava on 07-20-2023 Bacteria Auto Ql (U) None seen None Seen [facility] Urine clarity by refractomet ry automatedOrdered By: Tello Nava on 07-20-2023 Clarity Refractometry automated (U) Turbid Clear [facility] Urine glucose measurement by automated test strip (mass/volume)Ordered By: Tello Nava on 07-20-2023 Glucose Auto test strip (U) [Mass/Vol] 100 mg/dL Normal [facility] Urine hemoglobin detection b y automated test stripOrdered By: Tello Nava on 07-20-2023 Hemoglobin Auto test strip Ql (U) 3+ Negative [facility] Urine leukocyte esterase det ection by automated test stripOrdered By: Tello Nava on 07-20-2023 Leukocyte esterase Auto test strip Ql (U) 2+ Negative [facility] Urine pH measurement by auto mated test stripOrdered By: Tello Nava on 07-20-2023 pH (U) 5.0 [pH] Normal 5.0-9.0 [facility] Comment on above: Order Comment: Name Collection Type:: Clean-Voided Midstream Performed By: #### A DDONUAPLUS, ANTONIO, UCREA, CUU ####[place] [address] Urine protein measurement by automated test strip (mass/volume)Ordered By: Tello Nava on 07-20-2023 Protein (U) [Mass/Vol] 300 mg/dL High Negative [facility] Comment on above: Order Comment: Name Collection Type:: Clean-Voided Midstream Performed By: #### A DDONUAPLUS, ANTONIO, REA, CUU ####[address] Urine sediment erythrocyte c ast count by microscopy (number/low power field)Ordered By: Tello Nava on 07-20-2023 RBC casts LM.LPF (Urine sed) [#/Area] 0-1 [LPF] None Seen [facility] Urobilinogen Auto test strip (U) [Mass/Vol]Ordered By: Tello Nava on 07-20-2023 Urobilinogen (U) [Mass/Vol] Normal mg/dL Normal [facility] Basic Metabolic Panelon 06-27 Anion gap [Moles/Vol] 11.8 mmol/L Normal 6.0-15.0 [facility] Comment on above: Performed By: #### D IFF CBC, BMP ####[place] [address] Calcium [Mass/Vol] 7.2 mg/dL Low 8.6-10.3 [facility] Comment on above: Performed By: #### D IFF CBC, BMP ####[address] [place] [address] [facility] Chloride [Moles/Vol] 97 mmol/L Low 98-107 [facility] Comment on above: Performed By: #### D IFF CBC, BMP ####[address] [address] [facility] CO2 [Moles/Vol] 28.9 mmol/L Normal 21.0-31.0 [facility] Comment on above: Performed By: #### D IFF CBC, BMP ####[place] [id number] [facility] Creatinine [Mass/Vol] 3.98 mg/dL Significan t change up 0.70-1.30 [facility] Comment on above: Performed By: #### D IFF CBC, BMP ####[address] Creatinine Clr Calc Pharmacy 19.32 Normal [facility] Comment on above: Result Comment: PERF ORMED BY:[address] [place], [place] [phone] MEDICAL DIRECTORJOSEPH GARCIA M.D. Performed By: #### D IFF CBC, BMP ####[place] [id number] [facility] GFR/1.73 sq M.predicted MDRD (S/P/Bld) [Vol rate/Area] 15.337 mL/min/{1.73_m2} Normal [facility] Comment on above: Performed By: #### D IFF CBC, BMP ####[place] [id number] [facility] Glucose [Mass/Vol] 137 mg/dL High 70-100 [facility] Comment on above: Result Comment: [place] Glucose Reference Range is dependent on time and content of last meal. Glucose of more than 200 mg/dL in a nonstressed, ambulatory subject supports the diagnosis of Diabetes Mellitus. ADA recommended reference range Performed By: #### D IFF CBC, BMP ####[place] [id number] [facility] Potassium [Moles/Vol] 4.7 mmol/L Normal 3.5-5.1 [facility] Comment on above: Performed By: #### D IFF CBC, BMP ####[place] [id number] [facility] Sodium [Moles/Vol] 133 mmol/L Low 136-145 [facility] Comment on above: Performed By: #### D IFF CBC, BMP ####[address] Urea nitrogen [Mass/Vol] 42 mg/dL High 7-25 [facility] Comment on above: Performed By: #### D IFF CBC, BMP ####[place] [id number] [facility] Basophils/100 leukocytes in Blood by Manual countOrdered By: Tello Nava on 07-19-2023 Basophils/100 WBC (Bld) 1 % Normal 0-2 [facility] Comment on above: Performed By: #### D IFF CBC, BMP ####[address] Diff and CBCon 07-19-2023 Anisocytosis Ql (Bld) Slight Normal [facility] Comment on above: Performed By: #### D IFF CBC, BMP ####[address] Erythrocyte distribution width (RBC) [Ratio] 16.9 % High 12.0-14.8 [facility] Comment on above: Performed By: #### D IFF CBC, BMP ####[place] [id number] [facility] Hematocrit (Bld) [Volume fraction] 24.2 % Low 38.8-50.0 [facility] Comment on above: Performed By: #### D IFF CBC, BMP ####[place] [id number] [facility] Hemoglobin (Bld) [Mass/Vol] 8.4 g/dL Low 13.0-17.0 [facility] Comment on above: Performed By: #### D IFF CBC, BMP ####[address] [address] [place] [id number] [facility] MCH (RBC) [Entitic mass] 29.3 pg Normal 27.5-35.2 [facility] Comment on above: Performed By: #### D IFF CBC, BMP ####[place] [id number] [facility] MCV (RBC) [Entitic vol] 84.6 fL Normal 83.5-101 [facility] Comment on above: Performed By: #### D IFF CBC, BMP ####[place] [id number] [facility] Mean Corpuscular HGB Conc 34.7 g/dL Normal 32.5-35.6 [facility] Comment on above: Performed By: #### D IFF CBC, BMP ####[place] [id number] [facility] Metamyelocytes 1 % High 0-0 [facility] Comment on above: Performed By: #### D IFF CBC, BMP ####[place] [id number] [facility] Microcytosis Slight Normal [facility] Comment on above: Performed By: #### D IFF CBC, BMP ####[place] [id number] [facility] Myelocytes 2 % High 0-0 [facility] Comment on above: Performed By: #### D IFF CBC, BMP ####[place] [id number] [facility] Platelet Estimate Increased Normal Normal The [facility] Comment on above: Performed By: #### D IFF CBC, BMP ####[place] [id number] [facility] Platelet mean volume (Bld) [Entitic vol] 7.3 fL Normal 6.6-10.1 [facility] Comment on above: Result Comment: PERF ORMED BY:[address] [place], [place] [phone] MEDICAL DIRECTORJOSEPH GARCIA M.D. Performed By: #### D IFF CBC, BMP ####[address] [address] [facility] Platelet Morphology Normal Normal Normal [facility] Comment on above: Result Comment: PERF ORMED BY:[address] [address] [address] [place], [place] [phone] MEDICAL DIRECTORJOSEPH GARCIA M.D. Performed By: #### D IFF CBC, BMP ####[address] [address] [facility] Platelets (Bld) [#/Vol] 467 10*3/uL High 150-450 [facility] Comment on above: Performed By: #### D IFF CBC, BMP ####[address] [place] [address] [facility] Polychromasia Slight Normal [facility] Comment on above: Performed By: #### D IFF CBC, BMP ####[address] [address] [facility] RBC (Bld) [#/Vol] 2.86 10*6/uL Low 3.90-5.60 [facility] Comment on above: Performed By: #### D IFF CBC, BMP ####[address] [address] [facility] WBC (Bld) [#/Vol] 21.0 10*3/uL High 4.1-10.5 [facility] Comment on above: Performed By: #### D IFF CBC, BMP ####[address] [address] [place] Eosinophils/100 leukocytes i n Blood by Manual countOrdered By: Tello Nava on 07-19-2023 Eosinophils/100 WBC (Bld) 1 % Normal 1-3 [facility] Comment on above: Performed By: #### D IFF CBC, BMP ####[address] [address] [facility] Glucose Poct Glucometerson 0 07-19-2023 Glucose [Mass/Vol] 192 mg/dL Normal [facility] Comment on above: Result Comment: [place] Glucose Reference Range is dependent on time and content of last meal. Glucose of more than 200 mg/dL in a nonstressed, ambulatory subject supports the diagnosis of Diabetes Mellitus.PERFORMED BY:[address] [place], [place] [phone] MEDICAL DIRECTORJOSEPH GARCIA M.D. Performed By: #### G LULS ####Point of Care testing, Glucose [Mass/Vol] 217 mg/dL Normal [facility] Comment on above: Result Comment: [place] Glucose Reference Range is dependent on time and content of last meal. Glucose of more than 200 mg/dL in a nonstressed, ambulatory subject supports the diagnosis of Diabetes Mellitus.PERFORMED BY:[address] [place], [place] [phone] MEDICAL DIRECTORJOSEPH GARCIA M.D. Performed By: #### G LULS ####Point of Care testing, Glucose [Mass/Vol] 172 mg/dL Normal [facility] Comment on above: Result Comment: [place] Glucose Reference Range is dependent on time and content of last meal. Glucose of more than 200 mg/dL in a nonstressed, ambulatory subject supports the diagnosis of Diabetes Mellitus.PERFORMED BY:[address] [place], [place] [phone] MEDICAL DIRECTORJOSEPH GARCIA M.D. Performed By: #### G LULS ####Point of Care testing, Lymphocytes/100 leukocytes i n Blood by Manual countOrdered By: Tello Nava on 07-19-2023 Lymphocytes/100 WBC (Bld) 2 % Low 18-42 [facility] Comment on above: Performed By: #### D IFF CBC, BMP ####[facility] [place] [address] [facility] Manual blood segmented neutr ophils/100 leukocytesOrdered By: Tello Nava on 07-19-2023 Segmented neutrophils/100 WBC (Bld) 85 % High 50-70 [facility] Comment on above: Performed By: #### D IFF CBC, BMP ####[facility] [id number] [place] [address] [facility] Metamyelocytes/100 WBC Manua l cnt (Bld)Ordered By: Tello Nava on 07-19-2023 Metamyelocytes/100 WBC (Bld) 1 % 0-0 [facility] Monocytes/100 leukocytes in Blood by Manual countOrdered By: Tello Nava on 07-19-2023 Monocytes/100 WBC (Bld) 7 % Normal 2-11 [facility] Comment on above: Performed By: #### D IFF CBC, BMP ####[address] [place] [address] [facility] Myelocytes/100 WBC Manual cn t (Bld)Ordered By: Tello Nava on 07-19-2023 Myelocytes/100 WBC (Bld) 2 % 0-0 [facility] Peripheral white blood cell differential % bands, microscopic examOrdered By: Tello Nava on 07-19-2023 Band form neutrophils/100 WBC (Bld) 2 % Normal 0-5 [facility] Comment on above: Performed By: #### D IFF CBC, BMP ####[place] [address] [place] [id number] [facility] Urine culture routineOrdered By: Tello Nava on 07-19-2023 Bacteria identified Cx Nom (U) 2 Days [facility] Basic Metabolic Panelon 06-27 Anion gap [Moles/Vol] Not performed Normal 6.0-15.0 [facility] Comment on above: Performed By: #### D IFF CBC, BMP ####[facility] [id number] [place] [address] [facility] Creatinine Clr Calc Pharmacy 15.95 Normal [facility] Comment on above: Result Comment: PERF ORMED BY:[address] [address] [address] [place], [place] [phone] MEDICAL DIRECTORJOSEPH GARCIA M.D. Performed By: #### D IFF CBC, BMP ####[address] [place] [address] [facility] GFR/1.73 sq M.predicted MDRD (S/P/Bld) [Vol rate/Area] 12.189 mL/min/{1.73_m2} Normal [facility] Comment on above: Performed By: #### D IFF CBC, BMP ####[place] [address] Potassium Normal 3.5-5.1 [facility] Comment on above: Result Comment: Spec imen hemolyzed, redraw requested Performed By: #### D IFF CBC, BMP ####[place] [address] Basophils Auto (Bld) [#/Vol] Ordered By: Tello Nava on 07-18-2023 Basophils (Bld) [#/Vol] N/A [facility] Basophils/100 WBC Auto (Bld) Ordered By: Tello Nava on 07-18-2023 Basophils/100 WBC (Bld) N/A [facility] Basophils/100 leukocytes in Blood by Manual countOrdered By: Tello Nava on 07-18-2023 Basophils/100 WBC (Bld) 1 % Normal 0-2 [facility] Comment on above: Performed By: #### D IFF CBC, BMP ####[place] [address] [place] [id number] [facility] [place] cells [Presence] in Blo od by Light microscopyOrdered By: Tello Nava on 07-18-2023 [place] cells LM Ql (Bld) Slight Fi [facility] Calcium [Mass/volume] in Ser um or PlasmaOrdered By: Tello Nava on 07-18-2023 Calcium [Mass/Vol] 7.1 mg/dL Low 8.6-10.3 [facility] Comment on above: Performed By: #### D IFF CBC, BMP ####[place] [address] [place] [id number] [facility] Capillary blood glucose nic urement by glucometer (mass/volume)Ordered By: Tello Nava on 07-18-2023 Glucose [Mass/Vol] 280 mg/dL Normal [facility] Comment on above: Random Glucose Refer ence Range is dependent on time and content of last meal. Glucose of more than 200 mg/dL in a nonstressed, ambulatory subject supports the diagnosis of Diabetes Mellitus. Result Comment: [place] Glucose Reference Range is dependent on time and content of last meal. Glucose of more than 200 mg/dL in a nonstressed, ambulatory subject supports the diagnosis of Diabetes Mellitus.PERFORMED BY:[address] [address] [address] [place], [place] [phone] MEDICAL DIRECTORJOSEPH GARCIA M.D. Performed By: #### G VALEYR ####Point of Care testing, Carbon dioxide, total [Moles /volume] in Serum or PlasmaOrdered By: Tello Nava on 07-18-2023 CO2 [Moles/Vol] 23.7 mmol/L Normal 21.0-31.0 [facility] [place] Comment on above: Performed By: #### D IFF CBC, BMP ####[place] [address] [id number] [facility] Chloride [Moles/volume] in S rene or PlasmaOrdered By: Tello Nava on 07-18-2023 Chloride [Moles/Vol] 95 mmol/L Low 98-107 [facility] Comment on above: Performed By: #### D IFF CBC, BMP ####[place] [address] [place] [id number] [facility] Creatinine [Mass/volume] in Serum or PlasmaOrdered By: Tello Nava on 07-18-2023 Creatinine [Mass/Vol] 4.82 mg/dL Significan t change up 0.70-1.30 [facility] Comment on above: Delta: 6.18 on 07/17 Performed By: #### D IFF CBC, BMP ####[address] [address] [facility] Diff and CBCon 07-18-2023 Crenated RBC Slight Normal [facility] Comment on above: Performed By: #### D IFF CBC, BMP ####[address] [address] [facility] Mean Corpuscular HGB Conc 34.4 g/dL Normal 32.5-35.6 [facility] Comment on above: Performed By: #### D IFF CBC, BMP ####[address] [address] [facility] Metamyelocytes 3 % High 0-0 [facility] Comment on above: Performed By: #### D IFF CBC, BMP ####[address] [place] [address] [facility] Myelocytes 2 % High 0-0 [facility] Comment on above: Performed By: #### D IFF CBC, BMP ####[address] [place] [address] [facility] Platelet Estimate Increased Normal Normal The [facility] Comment on above: Performed By: #### D IFF CBC, BMP ####[address] [address] [facility] Platelet Morphology Normal Normal Normal [facility] Comment on above: Result Comment: PERF ORMED BY:[address] [place], [place] [phone] MEDICAL DIRECTORJOSEPH GARCIA M.D. Performed By: #### D IFF CBC, BMP ####[address] [address] [facility] Poikilocytosis Slight Normal [facility] Comment on above: Performed By: #### D IFF CBC, BMP ####[address] [address] [facility] Polychromasia Slight Normal [facility] Comment on above: Performed By: #### D IFF CBC, BMP ####[address] [address] [facility] Schistocytes Slight Normal [facility] Comment on above: Performed By: #### D IFF CBC, BMP ####[address] [address] [facility] Eosinophils Auto (Bld) [#/Vo l]Ordered By: Tello Nava on 07-18-2023 Eosinophils (Bld) [#/Vol] N/A [facility] Eosinophils/100 WBC Auto (Bl d)Ordered By: Tello Nava on 07-18-2023 Eosinophils/100 WBC (Bld) N/A [facility] Eosinophils/100 leukocytes i n Blood by Manual countOrdered By: Tello Nava on 07-18-2023 Eosinophils/100 WBC (Bld) 3 % Normal 1-3 [facility] Comment on above: Performed By: #### D IFF CBC, BMP ####[facility] [place] [address] [place] [address] [facility] Erythrocyte distribution wid th [Ratio] by Automated countOrdered By: Tello Nava on 07-18-2023 Erythrocyte distribution width (RBC) [Ratio] 14.4 % Normal 12.0-14.8 [facility] Comment on above: Performed By: #### D IFF CBC, BMP ####[address] [address] [facility] Erythrocytes [#/volume] in B lood by Automated countOrdered By: Tello Nava on 07-18-2023 RBC (Bld) [#/Vol] 2.37 10*6/uL Low 3.90-5.60 [facility] Comment on above: Performed By: #### D IFF CBC, BMP ####[address] [address] [facility] Glucose Poct Glucometerson 0 07-18-2023 Glucose [Mass/Vol] 137 mg/dL Normal [facility] Comment on above: Result Comment: [facility] Glucose Reference Range is dependent on time and content of last meal. Glucose of more than 200 mg/dL in a nonstressed, ambulatory subject supports the diagnosis of Diabetes Mellitus.PERFORMED BY:[address] [place], [place] [phone] MEDICAL DIRECTORJOSEPH GARCIA M.D. Performed By: #### G LULS ####Point of Care testing, Glucose [Mass/Vol] 146 mg/dL Normal [facility] Comment on above: Result Comment: [facility] Glucose Reference Range is dependent on time and content of last meal. Glucose of more than 200 mg/dL in a nonstressed, ambulatory subject supports the diagnosis of Diabetes Mellitus.PERFORMED BY:[address] [address] [address] [place] [phone] MEDICAL DIRECTORJOSEPH GARCIA M.D. Performed By: #### G LULS ####Point of Care testing, Glucose [Mass/Vol] 151 mg/dL Normal [facility] Comment on above: Result Comment: [facility] Glucose Reference Range is dependent on time and content of last meal. Glucose of more than 200 mg/dL in a nonstressed, ambulatory subject supports the diagnosis of Diabetes Mellitus.PERFORMED BY:[address] [address] [address]ikoTracyLUZ [place], [place] [phone] MEDICAL DIRECTORJOSEPH GARCIA M.D. Performed By: #### G LULS ####Point of Care testing, Glucose [Mass/Vol] 169 mg/dL Normal [facility] Comment on above: Result Comment: [facility] Glucose Reference Range is dependent on time and content of last meal. Glucose of more than 200 mg/dL in a nonstressed, ambulatory subject supports the diagnosis of Diabetes Mellitus.PERFORMED BY:[address] [address] [address] [place]amikoTracyLUZ [place], [place] [phone] MEDICAL DIRECTORJOSEPH GARCIA M.D. Performed By: #### G LULS ####Point of Care testing, Glucose [Mass/volume] in Ser um or PlasmaOrdered By: Tello Nava on 07-18-2023 Glucose [Mass/Vol] 148 mg/dL High 70-100 [facility] Comment on above: ADA recommended refe rence rangeRandom Glucose Reference Range is dependent on time and content of last meal. Glucose of more than 200 mg/dL in a nonstressed, ambulatory subject supports the diagnosis of Diabetes Mellitus. Result Comment: [facility] Glucose Reference Range is dependent on time and content of last meal. Glucose of more than 200 mg/dL in a nonstressed, ambulatory subject supports the diagnosis of Diabetes Mellitus. ADA recommended reference range Performed By: #### D IFF CBC, BMP ####[place] [address] [address] [place] [id number] [facility] Hematocrit [Volume Fraction] of Blood by Automated countOrdered By: Tello Nava on 07-18-2023 Hematocrit (Bld) [Volume fraction] 20.4 % Low 38.8-50.0 [facility] Comment on above: Performed By: #### D IFF CBC, BMP ####[place] [address] [address] [place] [id number] [facility] Hemoglobin [Mass/volume] in BloodOrdered By: Tello Nava on 07-18-2023 Hemoglobin (Bld) [Mass/Vol] 7.0 g/dL Low 13.0-17.0 [facility] Comment on above: Performed By: #### D IFF CBC, BMP ####[place] [address] [address] [place] [id number] [facility] Neil 07-18-2023 L Normal [facility] Leukocytes [#/volume] correc jewel for nucleated erythrocytes in Blood by Automated counOrdered By: Tello Nava on 07-18-2023 WBC corrected for nucl RBC Auto (Bld) [#/Vol] 19.7 10*3/uL 4.1-10.5 [facility] Leukocytes [#/volume] in Blo od by Automated countOrdered By: Tello Nava on 07-18-2023 WBC (Bld) [#/Vol] 19.7 10*3/uL High 4.1-10.5 [facility] Comment on above: Performed By: #### D IFF CBC, BMP ####[place] [id number] [facility] Lymphocytes Auto (Bld) [#/Vo l]Ordered By: Tello Nava on 07-18-2023 Lymphocytes (Bld) [#/Vol] N/A [facility] Lymphocytes/100 WBC Auto (Bl d)Ordered By: Tello Nava on 07-18-2023 Lymphocytes/100 WBC (Bld) N/A [facility] Lymphocytes/100 leukocytes i n Blood by Manual countOrdered By: Tello Nava on 07-18-2023 Lymphocytes/100 WBC (Bld) 8 % Low 18-42 [facility] Comment on above: Performed By: #### D IFF CBC, BMP ####[place] [address] MCH [Entitic mass] by Automa jewel countOrdered By: Tello Nava on 07-18-2023 MCH (RBC) [Entitic mass] 29.5 pg Normal 27.5-35.2 [facility] Comment on above: Performed By: #### D IFF CBC, BMP ####[address] MCHC Auto (RBC) [Mass/Vol]Or dered By: Tello Nava on 07-18-2023 MCHC (RBC) [Mass/Vol] 34.4 g/dL 32.5-35.6 [facility] MCV [Entitic volume] by Auto mated countOrdered By: Tello Nava on 07-18-2023 MCV (RBC) [Entitic vol] 85.8 fL Normal 83.5-101 [facility] Comment on above: Performed By: #### D IFF CBC, BMP ####[address] Manual blood segmented neutr ophils/100 leukocytesOrdered By: Tello Nava on 07-18-2023 Segmented neutrophils/100 WBC (Bld) 77 % High 50-70 [facility] Comment on above: Performed By: #### D IFF CBC, BMP ####[address] Metamyelocytes/100 WBC Manua l cnt (Bld)Ordered By: Tello Nava on 07-18-2023 Metamyelocytes/100 WBC (Bld) 3 % 0-0 [facility] Monocytes Auto (Bld) [#/Vol] Ordered By: Tello Nava on 07-18-2023 Monocytes (Bld) [#/Vol] N/A [facility] Monocytes/100 WBC Auto (Bld) Ordered By: Tello Nava on 07-18-2023 Monocytes/100 WBC (Bld) N/A [facility] Monocytes/100 leukocytes in Blood by Manual countOrdered By: Tello Nava on 07-18-2023 Monocytes/100 WBC (Bld) 3 % Normal 2-11 [facility] Comment on above: Performed By: #### D IFF CBC, BMP ####[facility] [place] [address] [place] [address] [facility] Myelocytes/100 WBC Manual cn t (Bld)Ordered By: Tello Nava on 07-18-2023 Myelocytes/100 WBC (Bld) 2 % 0-0 [facility] Neutrophils Auto (Bld) [#/Vo l]Ordered By: Tello Nava on 07-18-2023 Neutrophils (Bld) [#/Vol] N/A [facility] Neutrophils/100 WBC Auto (Bl d)Ordered By: Tello Nava on 07-18-2023 Neutrophils/100 WBC (Bld) N/A [facility] No Panel InformationOrdered By: Tello Nava on 07-18-2023 Estimated GFR (CKD-EPI) 12.189 mL/Min [facility] Creatinine Clearance (Chem 15.95 [facility] Nucleated erythrocytes [Pres ence] in Blood by Automated countOrdered By: Tello Nava on 07-18-2023 Nucleated RBC Auto Ql (Bld) N/A [facility] Peripheral white blood cell differential % bands, microscopic examOrdered By: Tello Nava on 07-18-2023 Band form neutrophils/100 WBC (Bld) 4 % Normal 0-5 [facility] Comment on above: Performed By: #### D IFF CBC, BMP ####[facility] [address] [place] [address] [facility] Platelet adequacy [Presence] in Blood by Light microscopyOrdered By: Tello Nava on 07-18-2023 Platelets LM Ql (Bld) Increased Normal [facility] Platelet mean volume [Entiti c volume] in Blood by Automated countOrdered By: Tello Nava on 07-18-2023 Platelet mean volume (Bld) [Entitic vol] 7.4 fL Normal 6.6-10.1 [facility] Comment on above: Performed By: #### D IFF CBC, BMP ####[address] [address] [place] [id number] [facility] Platelet morphology finding [Identifier] in BloodOrdered By: Tello Nava on 07-18-2023 Platelet morphology finding Nom (Bld) Normal Normal [facility] Platelets [#/volume] in Bloo d by Automated countOrdered By: Tello Nava on 07-18-2023 Platelets (Bld) [#/Vol] 457 10*3/uL High 150-450 [facility] Comment on above: Performed By: #### D IFF CBC, BMP ####[place] [address] [place] [id number] [facility] Poikilocytosis [Presence] in Blood by Light microscopyOrdered By: Tello Nava on 07-18-2023 Poikilocytosis LM Ql (Bld) [facility] Polychromasia [Presence] in Blood by Light microscopyOrdered By: Tello Nava on 07-18-2023 Polychromasia LM Ql (Bld) [facility] Potassium [Moles/volume] in Serum or PlasmaOrdered By: Tello Nava on 07-18-2023 Potassium [Moles/Vol] 4.6 mmol/L Normal 3.5-5.1 [facility] Comment on above: Result Comment: PERF ORMED BY:[address] [address] [address] [place], [place] [phone] MEDICAL DIRECTORJOSEPH GARCIA M.D. Performed By: #### R HOLA Tinajero ####[address] [address] [facility] RBC morphologyOrdered By: Mayelin Nava on 07-18-2023 RBC morphology finding Nom (Bld) Normal Normal Normal [facility] Comment on above: Performed By: #### D IFF CBC, BMP ####[place] [address] [place] [id number] [facility] Schistocytes [Presence] in B lood by Light microscopyOrdered By: Tello Nava on 07-18-2023 Schistocytes LM Ql (Bld) Slight [facility] Serum or plasma anion gap de terminationOrdered By: Tello Nava on 07-18-2023 Anion gap [Moles/Vol] TNP [facility] Comment on above: Test not performed Sodium [Moles/volume] in Ser um or PlasmaOrdered By: Tello Nava on 07-18-2023 Sodium [Moles/Vol] 128 mmol/L Low 136-145 [facility] Comment on above: Performed By: #### D IFF CBC, BMP ####[address] [place] [address] [facility] Urea nitrogen [Mass/volume] in Serum or PlasmaOrdered By: Tello Nava on 07-18-2023 Urea nitrogen [Mass/Vol] 66 mg/dL Significant change up 7-25 [facility] Comment on above: Delta: 99 on [phone] Performed By: #### D IFF CBC, BMP ####[address] [address] [place] [address] [facility] XR foot LT 2Von 07-18-2023 XR foot LT 2V Normal [facility] ABO/Rh Retypeon 07-17-2023 ABO/RH Recheck Result Positive Normal [facility] Comment on above: Order Comment: pt in dialysis Result Comment: PERF ORMED BY:[address] [place], [place] [phone] MEDICAL DIRECTORJOSEPH GARCIA M.D. Acanthocytes [Presence] in B lood by Light microscopyOrdered By: Rohan Han on 07-17-2023 Acanthocytes LM Ql (Bld) Slight [facility] Basic Metabolic Panelon 06-27 Anion gap [Moles/Vol] 16.3 mmol/L High 6.0-15.0 [facility] Comment on above: Performed By: #### B MP ####[facility] [place] [address] [facility] Calcium [Mass/Vol] 7.5 mg/dL Low 8.6-10.3 [facility] Comment on above: Performed By: #### B MP ####[address] [address] [facility] Chloride [Moles/Vol] 94 mmol/L Low 98-107 [facility] Comment on above: Performed By: #### B MP ####[address] [address] [facility] CO2 [Moles/Vol] 19.7 mmol/L Low 21.0-31.0 [facility] Comment on above: Performed By: #### B MP ####[address] [address] [facility] Creatinine [Mass/Vol] 6.18 mg/dL High 0.70-1.30 [facility] Comment on above: Performed By: #### B MP ####[address] [address] [facility] Creatinine Clr Calc Pharmacy 12.85 Normal [facility] Comment on above: Result Comment: PERF ORMED BY:[address] [place], [place] [phone] MEDICAL DIRECTORJOSEPH GARCIA M.D. Performed By: #### B MP ####[address] [address] [facility] GFR/1.73 sq M.predicted MDRD (S/P/Bld) [Vol rate/Area] 9.045 mL/min/{1.73_m2} Normal [facility] Comment on above: Performed By: #### B MP ####[address] [address] [facility] Glucose [Mass/Vol] 140 mg/dL High 70-100 [facility] Comment on above: Result Comment: [place] Glucose Reference Range is dependent on time and content of last meal. Glucose of more than 200 mg/dL in a nonstressed, ambulatory subject supports the diagnosis of Diabetes Mellitus. ADA recommended reference range Performed By: #### B MP ####[address] [address] [place] Potassium [Moles/Vol] 5.0 mmol/L Normal 3.5-5.1 [facility] Comment on above: Performed By: #### B MP ####[address] Sodium [Moles/Vol] 125 mmol/L Low 136-145 [facility] Comment on above: Performed By: #### B MP ####[address] Urea nitrogen [Mass/Vol] 99 mg/dL High 7-25 [facility] Comment on above: Performed By: #### B MP ####[address] Blood toxic granulation dete ction by light microscopyOrdered By: Rohan Han on 07-17-2023 Toxic granules LM Ql (Bld) Slight [facility] Diff and CBCon 07-17-2023 Acanthocytes Slight Normal [facility] Comment on above: Performed By: #### D IFF CBC ####[address] Band form neutrophils/100 WBC (Bld) 2 % Normal 0-5 [facility] Comment on above: Performed By: #### D IFF CBC ####[address] Eosinophils/100 WBC (Bld) 1 % Normal 1-3 [facility] Comment on above: Performed By: #### D IFF CBC ####[address] Erythrocyte distribution width (RBC) [Ratio] 13.2 % Normal 12.0-14.8 [facility] Comment on above: Performed By: #### D IFF CBC ####[place] [id number] [facility] Giant Platelet Tally 1 /100{WBC} Normal [facility] Comment on above: Performed By: #### D IFF CBC ####[address] Hematocrit (Bld) [Volume fraction] 20.0 % Low 38.8-50.0 [facility] Comment on above: Performed By: #### D IFF CBC ####[address] Hemoglobin (Bld) [Mass/Vol] 6.9 g/dL Low 13.0-17.0 [facility] Comment on above: Performed By: #### D IFF CBC ####[address] Lymphocytes/100 WBC (Bld) 8 % Low 18-42 [facility] Comment on above: Performed By: #### D IFF CBC ####[address] MCH (RBC) [Entitic mass] 30.2 pg Normal 27.5-35.2 [facility] Comment on above: Performed By: #### D IFF CBC ####[address] MCV (RBC) [Entitic vol] 88.0 fL Normal 83.5-101 [facility] Comment on above: Performed By: #### D IFF CBC ####[address] Mean Corpuscular HGB Conc 34.4 g/dL Normal 32.5-35.6 [facility] Comment on above: Performed By: #### D IFF CBC ####[address] Metamyelocytes 4 % High 0-0 [facility] Comment on above: Performed By: #### D IFF CBC ####[address] Monocytes/100 WBC (Bld) 5 % Normal 2-11 [facility] Comment on above: Performed By: #### D IFF CBC ####[address] Myelocytes 1 % High 0-0 [facility] Comment on above: Performed By: #### D IFF CBC ####[address] [address] [facility] Platelet Estimate Increased Normal Normal The [facility] Comment on above: Performed By: #### D IFF CBC ####[address] [address] [facility] Platelet mean volume (Bld) [Entitic vol] 7.5 fL Normal 6.6-10.1 [facility] Comment on above: Result Comment: PERF ORMED BY:[address] [address] [address] [place], [place] [phone] MEDICAL DIRECTORJOSEPH GARCIA M.D. Performed By: #### D IFF CBC ####[address] [address] [facility] Platelet Morphology Normal Normal Normal [facility] Comment on above: Result Comment: PERF ORMED BY:[address] [place], [place] [phone] MEDICAL DIRECTORJOSEPH GARCIA M.D. Performed By: #### D IFF CBC ####[address] [address] [facility] Platelets (Bld) [#/Vol] 461 10*3/uL High 150-450 [facility] Comment on above: Performed By: #### D IFF CBC ####[address] [address] [facility] Poikilocytosis Slight Normal [facility] Comment on above: Performed By: #### D IFF CBC ####[address] [address] [facility] RBC (Bld) [#/Vol] 2.27 10*6/uL Low 3.90-5.60 [facility] Comment on above: Performed By: #### D IFF CBC ####[address] [address] [facility] Segmented neutrophils/100 WBC (Bld) 80 % High 50-70 [facility] Comment on above: Performed By: #### D IFF CBC ####[facility] [place] [address] [facility] Toxic Granulation Slight Normal The [facility] Comment on above: Performed By: #### D IFF CBC ####[facility] [place] [address] [facility] WBC (Bld) [#/Vol] 22.7 10*3/uL High 4.1-10.5 [facility] Comment on above: Performed By: #### D IFF CBC ####[place] [address] [place] [address] [facility] Giant platelets/100 leukocyt es [Ratio] in Blood by Manual countOrdered By: Rohan Han on 07-17-2023 Giant platelets/100 WBC Manual cnt (Bld) [Ratio] 1 /100{WBC} [facility] Glucose Poct Glucometerson 0 07-17-2023 Glucose [Mass/Vol] 178 mg/dL Normal [facility] Comment on above: Result Comment: [place] om Glucose Reference Range is dependent on time and content of last meal. Glucose of more than 200 mg/dL in a nonstressed, ambulatory subject supports the diagnosis of Diabetes Mellitus.PERFORMED BY:[address] [address] [address] [place], [place] [phone] MEDICAL DIRECTORJOSEPH AGRCIA M.D. Performed By: #### G LULS ####Point of Care testing, Commemt1 Glu2: Cleaned Meter Normal [facility] Comment on above: Result Comment: PERF ORMED BY:[address] [address] [address] [place], [place] [phone] MEDICAL DIRECTORJOSEPH GARCIA M.D. Performed By: #### G LULS ####Point of Care testing, Glucose [Mass/Vol] 132 mg/dL Normal [facility] Comment on above: Result Comment: [place] [facility] Glucose Reference Range is dependent on time and content of last meal. Glucose of more than 200 mg/dL in a nonstressed, ambulatory subject supports the diagnosis of Diabetes Mellitus. Performed By: #### G LULS ####Point of Care testing, Commemt1 Glu2: Cleaned Meter Normal [facility] Comment on above: Result Comment: PERF ORMED BY:[address] [address] [address]YATr[address]LUZ [place], [place] [phone] MEDICAL DIRECTORJOSEPH GARCIA M.D. Performed By: #### G LULS ####Point of Care testing, Glucose [Mass/Vol] 116 mg/dL Normal [facility] Comment on above: Result Comment: [place] om Glucose Reference Range is dependent on time and content of last meal. Glucose of more than 200 mg/dL in a nonstressed, ambulatory subject supports the diagnosis of Diabetes Mellitus. Performed By: #### G LULS ####Point of Care testing, Commemt1 Glu2: Cleaned Meter Normal [facility] Comment on above: Result Comment: PERF ORMED BY:[address] [place], [place] [phone] MEDICAL DIRECTORJOSEPH GARCIA M.D. Performed By: #### G LULS ####Point of Care testing, Glucose [Mass/Vol] 151 mg/dL Normal [facility] Comment on above: Result Comment: [place] om Glucose Reference Range is dependent on time and content of last meal. Glucose of more than 200 mg/dL in a nonstressed, ambulatory subject supports the diagnosis of Diabetes Mellitus. Performed By: #### G LULS ####Point of Care testing, Commemt1 Glu2: Cleaned Meter Normal [facility] Comment on above: Result Comment: PERF ORMED BY:[address] [place], [place] [phone] MEDICAL DIRECTORJOSEPH GARCIA M.D. Performed By: #### G LULS ####Point of Care testing, Glucose [Mass/Vol] 165 mg/dL Normal [facility] Comment on above: Result Comment: [place] om Glucose Reference Range is dependent on time and content of last meal. Glucose of more than 200 mg/dL in a nonstressed, ambulatory subject supports the diagnosis of Diabetes Mellitus. Performed By: #### G LULS ####Point of Care testing, Commemt1 Glu2: Cleaned Meter Normal [facility] Comment on above: Result Comment: PERF ORMED BY:[place] [address] [place], [place] [phone] MEDICAL DIRECTORJOSEPH GARCIA M.D. Performed By: #### G LULS ####Point of Care testing, Glucose [Mass/Vol] 153 mg/dL Normal [facility] Comment on above: Result Comment: [place] Glucose Reference Range is dependent on time and content of last meal. Glucose of more than 200 mg/dL in a nonstressed, ambulatory subject supports the diagnosis of Diabetes Mellitus. Performed By: #### G LULS ####Point of Care testing, LeukoReduced RBCon LeukoReduced RBC TRANSFUSED 07/18/23 0925 Normal [facility] No Panel InformationOrdered By: Tello Nava on 07-17-2023 Bedside Glucose Comment Glu2: cleaned meter [facility] Type and Screenon 07-17-2023 ABO and Rh group Nom (Bld) Blood group O Rh(D) positive Normal [facility] Comment on above: Order Comment: Trans fuse now? Y Number of units to transfuse now? 1 Transfuse now? Y Number of units to transfuse now? 2 XR chest 1V portableon 07-17 XR chest 1V portable Normal [facility] Basic Metabolic Panelon 06-27 Anion gap [Moles/Vol] 16.2 mmol/L High 6.0-15.0 Th e [facility] Comment on above: Performed By: #### B MP ####[facility] [place] [address] [place] Calcium [Mass/Vol] 7.4 mg/dL Low 8.6-10.3 [facility] Comment on above: Performed By: #### B MP ####[facility] [place] [address] [facility] Chloride [Moles/Vol] 93 mmol/L Low 98-107 [facility] Comment on above: Performed By: #### B MP ####[address] [address] [facility] CO2 [Moles/Vol] 20.6 mmol/L Low 21.0-31.0 [facility] Comment on above: Performed By: #### B MP ####[address] [address] [facility] Creatinine [Mass/Vol] 5.95 mg/dL Significan t change up 0.70-1.30 [facility] Comment on above: Performed By: #### B MP ####[address] [address] [facility] Creatinine Clr Calc Pharmacy 13.34 Normal [facility] Comment on above: Result Comment: PERF ORMED BY:[address] [address] [address] [place], [place] [phone] MEDICAL SILVIA GARCIA M.D. Performed By: #### B MP ####[place] [id number] [facility] GFR/1.73 sq M.predicted MDRD (S/P/Bld) [Vol rate/Area] 9.466 mL/min/{1.73_m2} Normal [facility] Comment on above: Performed By: #### B MP ####[place] [id number] [facility] Glucose [Mass/Vol] 166 mg/dL High 70-100 [facility] Comment on above: Result Comment: [place] Glucose Reference Range is dependent on time and content of last meal. Glucose of more than 200 mg/dL in a nonstressed, ambulatory subject supports the diagnosis of Diabetes Mellitus. ADA recommended reference range Performed By: #### B MP ####[place] [id number] [facility] Potassium [Moles/Vol] 4.8 mmol/L Normal 3.5-5.1 [facility] Comment on above: Performed By: #### B MP ####[place] [id number] [facility] Sodium [Moles/Vol] 125 mmol/L Low 136-145 [facility] Comment on above: Performed By: #### B MP ####[place] [id number] [facility] Urea nitrogen [Mass/Vol] 85 mg/dL High 7-25 [facility] Comment on above: Performed By: #### B MP ####[place] [id number] [facility] Glucose Poct Glucometerson 0 - Commemt1 Glu2: Cleaned Meter Normal [facility] Comment on above: Result Comment: PERF ORMED BY:[address] [place], [place] [phone] MEDICAL DIRECTORJOSEPH GARCIA M.D. Performed By: #### G LULS ####Point of Care testing, Glucose [Mass/Vol] 152 mg/dL Normal [facility] Comment on above: Result Comment: [place] om Glucose Reference Range is dependent on time and content of last meal. Glucose of more than 200 mg/dL in a nonstressed, ambulatory subject supports the diagnosis of Diabetes Mellitus. Performed By: #### G LULS ####Point of Care testing, Glucose [Mass/Vol] 150 mg/dL Normal [facility] Comment on above: Result Comment: [place] om Glucose Reference Range is dependent on time and content of last meal. Glucose of more than 200 mg/dL in a nonstressed, ambulatory subject supports the diagnosis of Diabetes Mellitus.PERFORMED BY:[address] [address] [place] [place], [place] [phone] MEDICAL SILVIA GARCIA M.D. Performed By: #### G LULS ####Point of Care testing, Glucose [Mass/Vol] 208 mg/dL Normal [facility] Comment on above: Result Comment: [place] Glucose Reference Range is dependent on time and content of last meal. Glucose of more than 200 mg/dL in a nonstressed, ambulatory subject supports the diagnosis of Diabetes Mellitus.PERFORMED BY:[address] [address] [place] [place], [place] [phone] MEDICAL DIRECTORJOSEPH GARCIA M.D. Performed By: #### G LULS ####Point of Care testing, Commemt1 Glu2: Cleaned Meter Normal [facility] Comment on above: Result Comment: PERF ORMED BY:[facility] [phone] MEDICAL DIRECTORJOSEPH GARCIA M.D. Performed By: #### G LULS ####Point of Care testing, Glucose [Mass/Vol] 196 mg/dL Normal [facility] Comment on above: Result Comment: [place] Glucose Reference Range is dependent on time and content of last meal. Glucose of more than 200 mg/dL in a nonstressed, ambulatory subject supports the diagnosis of Diabetes Mellitus. Performed By: #### G LULS ####Point of Care testing, Hepatitis Acute Panelon 06-27 HBsAg Screen Negative Normal Negative [facility] Comment on above: Performed By: #### H EPACUTE, HBSAB, HBCAB ####[facility] , Hepatitis A Antibody IgM Negative Normal Negative [facility] Comment on above: Performed By: #### H EPACUTE, HBSAB, HBCAB ####[facility] , Hepatitis B Core Antibody IgM Negative Normal Negative [facility] Comment on above: Performed By: #### H EPACUTE, HBSAB, HBCAB ####[facility] , Hepatitis C Virus Antibody Non-Reactive Normal Non Reactive [facility] Comment on above: Performed By: #### H EPACUTE, HBSAB, HBCAB ####[facility] , Interpretation Hepatitis C Normal . [facility] Comment on above: Result Comment: Not infected with HCV unless early or acute infection is suspected (which may be delayed in an immunocompromised individual), or other evidence exists to indicate HCV infection. Performed By: #### H EPACUTE, HBSAB, HBCAB ####[facility] , Hepatitis B Core Antibodyon 07-16-2023 Hepatitis B Core Antibody Negative Normal Negative [facility] Comment on above: Result Comment: Perf ormed at: CB - [facility] [address] [id number] Wagon Washer: Alvaro Verde PhD, Phone: [phone] BY:[address] [address] [address] [place], [place] [phone] MEDICAL DIRECTORJOSEPH GARCIA M.D. Performed By: #### H EPACUTE, HBSAB, HBCAB ####[facility] , Hepatitis B Surface Antibody on 07-16-2023 Hepatitis B Surface Antibody Non-Reactive Normal . [facility] Comment on above: Result Comment: Non Reactive: Inconsistent with immunity, less than 10 mIU/mL Reactive: Consistent with immunity, greater than 9.9 mIU/mL Performed By: #### H EPACUTE, HBSAB, HBCAB ####[facility] , Hepatitis B virus surface Ab [Presence] in SerumOrdered By: Sanket Hammer on 07-16-2023 HBV surface Ab Ql (S) Non-Reactive . [facility] Comment on above: Non Reactive: Incons istent with immunity, less than 10 mIU/mL Reactive: Consistent with immunity, greater than 9.9 mIU/mL Hepatitis B virus surface Ag [Presence] in Serum or Plasma by ImmunoassayOrdered By: Sanket Hammer on 07-16-2023 HBV surface Ag IA Ql Negative Negative [facility] Hepatitis C virus IgG Ab [Pr esence] in Serum or Plasma by ImmunoassayOrdered By: Sanket Hammer on 07-16-2023 HCV IgG IA Ql Non-Reactive Non Reactive [facility] Hepatitis C virus RNA [Units /volume] (viral load) in Serum or Plasma by JONES with probOrdered By: Sanket Hammer on 07-16-2023 HCV RNA JONES+probe Qn N/A [facility] Hepatitis C virus RNA [log u nits/volume] (viral load) in Serum or Plasma by JONES withOrdered By: Sanket Hammer on 07-16-2023 HCV RNA JONES+probe [Log units/Vol] N/A [facility] No Panel InformationOrdered By: Sanket Hammer on 07-16-2023 Hepatitis A IgM Antibody Negative Negative [facility] Hepatitis B Core IgM Antibody Negative Negative [facility] Hepatitis B Core Total Antibody Negative Negative [facility] Comment on above: Performed at: - L [address] [id number] Director: Alvaro Verde PhD, Phone: [phone] Hepatitis C Interpretation See comment . [facility] Comment on above: Not infected with HC V unless early or acute infection issuspected (which may be delayed in an immunocompromisedindividual), or other evidence exists to indicate HCVinfection. Negative Negative [facility] See comment . [facility] Basic Metabolic Panelon 06-27 Anion gap [Moles/Vol] 15.7 mmol/L High 6.0-15.0 Th e [facility] Comment on above: Performed By: #### B MP ####[place] [address] [place] [id number] [facility] Calcium [Mass/Vol] 7.0 mg/dL Low 8.6-10.3 [facility] Comment on above: Performed By: #### B MP ####[place] [address] [place] [id number] [facility] Chloride [Moles/Vol] 94 mmol/L Low 98-107 [facility] Comment on above: Performed By: #### B MP ####[place] [address] [place] [address] [facility] CO2 [Moles/Vol] 20.1 mmol/L Low 21.0-31.0 [facility] Comment on above: Performed By: #### B MP ####[facility] [place] [address] [facility] Creatinine [Mass/Vol] 5.39 mg/dL Significan t change up 0.70-1.30 [facility] Comment on above: Performed By: #### B MP ####[facility] [place] [address] [facility] Creatinine Clr Calc Pharmacy 14.71 Normal [facility] Comment on above: Result Comment: PERF ORMED BY:[address] [address] [address] [place], [place] [phone] MEDICAL DIRECTORJOSEPH GARCIA M.D. Performed By: #### B MP ####[address] [address] [facility] GFR/1.73 sq M.predicted MDRD (S/P/Bld) [Vol rate/Area] 10.659 mL/min/{1.73_m2} Normal [facility] Comment on above: Performed By: #### B MP ####[address] [address] [facility] Glucose [Mass/Vol] 176 mg/dL High 70-100 [facility] Comment on above: Result Comment: [place] Glucose Reference Range is dependent on time and content of last meal. Glucose of more than 200 mg/dL in a nonstressed, ambulatory subject supports the diagnosis of Diabetes Mellitus. ADA recommended reference range Performed By: #### B MP ####[address] [address] [facility] Potassium [Moles/Vol] 4.8 mmol/L Normal 3.5-5.1 [facility] Comment on above: Performed By: #### B MP ####[place] [id number] [facility] Sodium [Moles/Vol] 125 mmol/L Low 136-145 [facility] Comment on above: Performed By: #### B MP ####[address] [address] [facility] Urea nitrogen [Mass/Vol] 69 mg/dL High 7-25 [facility] Comment on above: Performed By: #### B MP ####[place] [id number] [facility] C reactive protein [Mass/vol ume] in Serum or PlasmaOrdered By: Michael Ramírez on 07-15-2023 CRP [Mass/Vol] 9.7 mg/dL 0.0-0.5 [facility] C-Reactive Proteinon 024 C-Reactive Protein 9.7 mg/dL High 0.0-0.5 [facility] Comment on above: Result Comment: PERF ORMED BY:[place] [address] [place] [place], [place] [phone] MEDICAL DIRECTORJOSEPH GARCIA M.D. Performed By: #### C RP ####[address] [address] [facility] Diff and CBCon 07-15-2023 Acanthocytes Slight Normal [facility] Comment on above: Performed By: #### D IFF CBC ####[address] [address] [facility] Basophils/100 WBC (Bld) 1 % Normal 0-2 [facility] Comment on above: Performed By: #### D IFF CBC ####[place] [id number] [facility] Eosinophils/100 WBC (Bld) 3 % Normal 1-3 [facility] Comment on above: Performed By: #### D IFF CBC ####[address] [address] [facility] Erythrocyte distribution width (RBC) [Ratio] 13.1 % Normal 12.0-14.8 [facility] Comment on above: Performed By: #### D IFF CBC ####[address] [address] [facility] Hematocrit (Bld) [Volume fraction] 25.1 % Low 38.8-50.0 [facility] Comment on above: Performed By: #### D IFF CBC ####[address] [address] [facility] Hemoglobin (Bld) [Mass/Vol] 8.7 g/dL Low 13.0-17.0 [facility] Comment on above: Performed By: #### D IFF CBC ####[place] [id number] [facility] Lymphocytes/100 WBC (Bld) 4 % Low 18-42 [facility] Comment on above: Performed By: #### D IFF CBC ####[address] MCH (RBC) [Entitic mass] 29.8 pg Normal 27.5-35.2 [facility] Comment on above: Performed By: #### D IFF CBC ####[address] MCV (RBC) [Entitic vol] 86.5 fL Normal 83.5-101 [facility] Comment on above: Performed By: #### D IFF CBC ####[address] Mean Corpuscular HGB Conc 34.5 g/dL Normal 32.5-35.6 [facility] Comment on above: Performed By: #### D IFF CBC ####[address] Metamyelocytes 1 % High 0-0 [facility] Comment on above: Performed By: #### D IFF CBC ####[address] Monocytes/100 WBC (Bld) 3 % Normal 2-11 [facility] Comment on above: Performed By: #### D IFF CBC ####[address] Myelocytes 1 % High 0-0 [facility] Comment on above: Performed By: #### D IFF CBC ####[place] [id number] [facility] Platelet Estimate Normal Normal Normal The [facility] Comment on above: Performed By: #### D IFF CBC ####[place] [id number] [facility] Platelet mean volume (Bld) [Entitic vol] 7.4 fL Normal 6.6-10.1 [facility] Comment on above: Result Comment: PERF ORMED BY:[address] [place], [place] [phone] MEDICAL DIRECTORJOSEPH GARCIA M.D. Performed By: #### D IFF CBC ####[place] [address] [place] [address] [facility] Platelet Morphology Normal Normal Normal [facility] Comment on above: Result Comment: PERF ORMED BY:[address] [address] [place], [place] [phone] MEDICAL DIRECTORJOSEPH GARCIA M.D. Performed By: #### D IFF CBC ####[place] [id number] [facility] Platelets (Bld) [#/Vol] 419 10*3/uL Normal 150-450 [facility] Comment on above: Performed By: #### D IFF CBC ####[address] [address] [facility] Poikilocytosis Slight Normal [facility] Comment on above: Performed By: #### D IFF CBC ####[place] [id number] [facility] RBC (Bld) [#/Vol] 2.91 10*6/uL Low 3.90-5.60 [facility] Comment on above: Performed By: #### D IFF CBC ####[place] [id number] [facility] Segmented neutrophils/100 WBC (Bld) 87 % High 50-70 [facility] Comment on above: Performed By: #### D IFF CBC ####[place] [id number] [facility] WBC (Bld) [#/Vol] 20.5 10*3/uL High 4.1-10.5 [facility] Comment on above: Performed By: #### D IFF CBC ####[place] [id number] [facility] Glucose Poct Glucometerson 0 07-15-2023 Commemt1 Glu2: Cleaned Meter Normal [facility] Comment on above: Result Comment: PERF ORMED BY:[address] [address] [place], [place] [phone] MEDICAL DIRECTORJOSEPH GARCIA M.D. Performed By: #### G LULS ####Point of Care testing, Glucose [Mass/Vol] 190 mg/dL Normal [facility] Comment on above: Result Comment: [place] om Glucose Reference Range is dependent on time and content of last meal. Glucose of more than 200 mg/dL in a nonstressed, ambulatory subject supports the diagnosis of Diabetes Mellitus. Performed By: #### G LULS ####Point of Care testing, Glucose [Mass/Vol] 221 mg/dL Normal [facility] Comment on above: Result Comment: [place] om Glucose Reference Range is dependent on time and content of last meal. Glucose of more than 200 mg/dL in a nonstressed, ambulatory subject supports the diagnosis of Diabetes Mellitus.PERFORMED BY:[place] [address] [address] [place], [place] [phone] MEDICAL DIRECTORJOSEPH GARCIA M.D. Performed By: #### G LULS ####Point of Care testing, Glucose [Mass/Vol] 214 mg/dL Normal [facility] Comment on above: Result Comment: [place] om Glucose Reference Range is dependent on time and content of last meal. Glucose of more than 200 mg/dL in a nonstressed, ambulatory subject supports the diagnosis of Diabetes Mellitus.PERFORMED BY:[place] [address] [place], [place] [phone] MEDICAL SILVIA GARCIA M.D. Performed By: #### G LULS ####Point of Care testing, Glucose [Mass/Vol] 197 mg/dL Normal [facility] Comment on above: Result Comment: [place] om Glucose Reference Range is dependent on time and content of last meal. Glucose of more than 200 mg/dL in a nonstressed, ambulatory subject supports the diagnosis of Diabetes Mellitus.PERFORMED BY:[address] [address] [place], [place] [phone] MEDICAL DIRECTORJOSEPH GARCIA M.D. Performed By: #### G LULS ####Point of Care testing, Anisocytosis [Presence] in B lood by Light microscopyOrdered By: Shun Manning on 07-14-2023 Anisocytosis Ql (Bld) Slight Normal [facility] Comment on above: Performed By: #### D IFF CBC, BMP ####[facility] Automated erythrocytes count in urine sediment (number/area)Ordered By: Tello Nava on 07-14-2023 RBC Auto (Urine sed) [#/Area] 10-19 [HPF] 0-4 [facility] Automated leukocytes count i n urine sediment (number/area)Ordered By: Tello Nava on 07-14-2023 WBC Auto (Urine sed) [#/Area] 20-49 [HPF] 0-4 [facility] Automated urine color determ inationOrdered By: Tello Nava on 07-14-2023 Color (U) Rhea Critically abnormal Yellow [facility] Comment on above: Order Comment: Name Collection Type:: Clean-Voided Midstream Performed By: #### C UU, UCREA, ADDONUAPLUS, URNA ####[place] [address] Automated urine hyaline cast s count (number/volume)Ordered By: Tello Nava on 07-14-2023 Hyaline casts Auto (U) [#/Vol] 5-9 [LPF] 0-1 [facility] Basic Metabolic Panelon 06-26 Anion gap [Moles/Vol] 12.4 mmol/L Normal 6.0-15.0 Th e [facility] Comment on above: Performed By: #### D IFF CBC, BMP ####[facility] [place] [id number] [facility] Calcium [Mass/Vol] 7.2 mg/dL Low 8.6-10.3 [facility] Comment on above: Performed By: #### D IFF CBC, BMP ####[facility] [place] [id number] [facility] Chloride [Moles/Vol] 97 mmol/L Low 98-107 [facility] Comment on above: Performed By: #### D IFF CBC, BMP ####[place] [address] [place] [address] [facility] CO2 [Moles/Vol] 22.0 mmol/L Normal 21.0-31.0 [facility] Comment on above: Performed By: #### D IFF CBC, BMP ####[place] [address] [place] [address] [facility] Creatinine [Mass/Vol] 4.56 mg/dL Significan t change up 0.70-1.30 [facility] Comment on above: Performed By: #### D IFF CBC, BMP ####[place] [id number] [facility] Creatinine Clr Calc Pharmacy 17.09 Normal [facility] Comment on above: Result Comment: PERF ORMED BY:[address] [place], [place] [phone] MEDICAL DIRECTORJOSEPH GARCIA M.D. Performed By: #### D IFF CBC, BMP ####[place] [id number] [facility] GFR/1.73 sq M.predicted MDRD (S/P/Bld) [Vol rate/Area] 13.027 mL/min/{1.73_m2} Normal [facility] Comment on above: Performed By: #### D IFF CBC, BMP ####[place] [id number] [facility] Glucose [Mass/Vol] 150 mg/dL High 70-100 [facility] Comment on above: Result Comment: [place] Glucose Reference Range is dependent on time and content of last meal. Glucose of more than 200 mg/dL in a nonstressed, ambulatory subject supports the diagnosis of Diabetes Mellitus. ADA recommended reference range Performed By: #### D IFF CBC, BMP ####[place] [id number] [facility] Potassium [Moles/Vol] 4.4 mmol/L Normal 3.5-5.1 [facility] Comment on above: Performed By: #### D IFF CBC, BMP ####[place] [id number] [facility] Sodium [Moles/Vol] 127 mmol/L Low 136-145 [facility] Comment on above: Performed By: #### D IFF CBC, BMP ####[place] [address] Urea nitrogen [Mass/Vol] 57 mg/dL High 7-25 [facility] Comment on above: Performed By: #### D IFF CBC, BMP ####[place] [address] Bilirubin Test strip Ql (U)O rdered By: Tello aNva on 07-14-2023 Bilirubin Ql (U) 1+ Negative [facility] Casts typing in urine sedime nt by light microscopyOrdered By: Tello Nava on 07-14-2023 Casts LM Nom (Urine sed) None seen [LPF] None Seen [facility] Creatinine [Mass/volume] in UrineOrdered By: Tello Nava on 07-14-2023 Creatinine (U) [Mass/Vol] 172.0 mg/dL 14.0-26.0 [facility] Creatinine, Urine (Random)on 07-14-2023 Creatinine, Urine (Random) 172.0 mg/dL High 14.0-26.0 [facility] Comment on above: Result Comment: PERF ORMED BY:[address] [place], [place] [phone] MEDICAL DIRECTORJOSPEH GARCIA M.D. Performed By: #### C UU, UCREA, ADDONUAPLUS, URNA ####[place] [address] [place] [id number] [facility] Diff and CBCon 07-14-2023 Eosinophils/100 WBC (Bld) 1 % Normal 1-3 [facility] Comment on above: Performed By: #### D IFF CBC, BMP ####[place] [address] [place] [id number] [facility] Erythrocyte distribution width (RBC) [Ratio] 13.0 % Normal 12.0-14.8 [facility] Comment on above: Performed By: #### D IFF CBC, BMP ####[place] [id number] [facility] Giant Platelet Tally 2 /100{WBC} Normal [facility] Comment on above: Performed By: #### D IFF CBC, BMP ####[place] [id number] [facility] Hematocrit (Bld) [Volume fraction] 27.6 % Low 38.8-50.0 [facility] Comment on above: Performed By: #### D IFF CBC, BMP ####[address] Hemoglobin (Bld) [Mass/Vol] 9.7 g/dL Low 13.0-17.0 [facility] Comment on above: Performed By: #### D IFF CBC, BMP ####[address] Lymphocytes/100 WBC (Bld) 6 % Low 18-42 [facility] Comment on above: Performed By: #### D IFF CBC, BMP ####[address] MCH (RBC) [Entitic mass] 30.7 pg Normal 27.5-35.2 [facility] Comment on above: Performed By: #### D IFF CBC, BMP ####[place] [id number] [facility] MCV (RBC) [Entitic vol] 87.4 fL Normal 83.5-101 [facility] Comment on above: Performed By: #### D IFF CBC, BMP ####[place] [id number] [facility] Mean Corpuscular HGB Conc 35.1 g/dL Normal 32.5-35.6 [facility] Comment on above: Performed By: #### D IFF CBC, BMP ####[place] [id number] [facility] Metamyelocytes 1 % High 0-0 [facility] Comment on above: Performed By: #### D IFF CBC, BMP ####[facility] [place] [address] [facility] Microcytosis Slight Normal [facility] Comment on above: Performed By: #### D IFF CBC, BMP ####[place] [address] [place] [address] [facility] Monocytes/100 WBC (Bld) 2 % Normal 2-11 [facility] Comment on above: Performed By: #### D IFF CBC, BMP ####[place] [address] [place] [address] [facility] Myelocytes 1 % High 0-0 [facility] Comment on above: Performed By: #### D IFF CBC, BMP ####[place] [address] [place] [address] [facility] Platelet Estimate Normal Normal Normal The [facility] Comment on above: Performed By: #### D IFF CBC, BMP ####[address] [address] [facility] Platelet mean volume (Bld) [Entitic vol] 7.4 fL Normal 6.6-10.1 [facility] Comment on above: Performed By: #### D IFF CBC, BMP ####[address] [address] [facility] Platelet Morphology Normal Normal Normal [facility] Comment on above: Result Comment: PERF ORMED BY:[address] [place], [place] [phone] MEDICAL DIRECTORJOSEPH GARCIA M.D. Performed By: #### D IFF CBC, BMP ####[address] [address] [facility] Platelets (Bld) [#/Vol] 429 10*3/uL Normal 150-450 [facility] Comment on above: Performed By: #### D IFF CBC, BMP ####[place] [address] [place] [address] [facility] Poikilocytosis Slight Normal [facility] Comment on above: Performed By: #### D IFF CBC, BMP ####[place] [id number] [facility] Polychromasia Slight Normal [facility] Comment on above: Performed By: #### D IFF CBC, BMP ####[place] [id number] [facility] RBC (Bld) [#/Vol] 3.16 10*6/uL Low 3.90-5.60 [facility] Comment on above: Performed By: #### D IFF CBC, BMP ####[place] [id number] [facility] Segmented neutrophils/100 WBC (Bld) 89 % High 50-70 [facility] Comment on above: Performed By: #### D IFF CBC, BMP ####[address] WBC (Bld) [#/Vol] 19.6 10*3/uL High 4.1-10.5 [facility] Comment on above: Performed By: #### D IFF CBC, BMP ####[place] [id number] [facility] Dipstick and Microscopicon 0 07-14-2023 Appearance (U) Turbid Critically abnormal Clear [facility] Comment on above: Order Comment: Name Collection Type:: Clean-Voided Midstream Performed By: #### C UU, UCREA, ADDONUAPLUS, URNA ####[place] [id number] [facility] Bacteria,Urine 1+ High None Seen [facility] Comment on above: Order Comment: Name Collection Type:: Clean-Voided Midstream Performed By: #### C UU, UCREA, ADDONUAPLUS, URNA ####[place] [id number] [place] Bilirubin,Urine 1+ High Negative [facility] Comment on above: Order Comment: Name Collection Type:: Clean-Voided Midstream Performed By: #### C UU, UCREA, ADDONUAPLUS, URNA ####[place] [id number] [facility] Glucose Ql (U) 100 mg/dL High Normal [facility] Comment on above: Order Comment: Name Collection Type:: Clean-Voided Midstream Performed By: #### C UU, UCREA, ADDONUAPLUS, URNA ####[address] [address] [facility] Hyaline Casts,Urine 5-9 High 0-[address] [facility] Comment on above: Order Comment: Name Collection Type:: Clean-Voided Midstream Performed By: #### C UU, UCREA, ADDONUAPLUS, URNA ####[address] [address] [facility] Ketones Ql (U) Trace High Negative [facility] Comment on above: Order Comment: Name Collection Type:: Clean-Voided Midstream Performed By: #### C UU, UCREA, ADDONUAPLUS, URNA ####[address] [address] [facility] Leukocyte esterase Test strip Ql (U) 2+ High Negative [facility] Comment on above: Order Comment: Name Collection Type:: Clean-Voided Midstream Performed By: #### C UU, UCREA, ADDONUAPLUS, URNA ####[address] [address] [facility] Nitrite,Urine Positive High Negative [facility] Comment on above: Order Comment: Name Collection Type:: Clean-Voided Midstream Performed By: #### C UU, UCREA, ADDONUAPLUS, URNA ####[address] [address] [facility] Occult Blood,Urine 3+ High Negative [facility] Comment on above: Order Comment: Name Collection Type:: Clean-Voided Midstream Result Comment: PERF ORMED BY:[address] [place], [place] [phone] MEDICAL DIRECTORJOSEPH GARCIA M.D. Performed By: #### C UU, UCREA, ADDONUAPLUS, URNA ####[address] [address] [facility] Other Casts,Urine None Seen Normal None Seen The [facility] Comment on above: Order Comment: Name Collection Type:: Clean-Voided Midstream Result Comment: PERF ORMED BY:[address] [place]UÑ[place]BO[place]ST[place], [place] [phone] MEDICAL DIRECTORJOSEPH GARCIA M.D. Performed By: #### C UU, UCREA, ADDONUAPLUS, URNA ####[address] [address] [facility] RBC,Urine 10-19 High 0-4 [facility] Comment on above: Order Comment: Name Collection Type:: Clean-Voided Midstream Performed By: #### C UU, UCREA, ADDONUAPLUS, URNA ####[address] Specificy Marydel,Urine 1.024 Normal 1.001-1.030 [facility] Comment on above: Order Comment: Name Collection Type:: Clean-Voided Midstream Performed By: #### C UU, UCREA, ADDONUAPLUS, URNA ####[place] [id number] [facility] Squamous Epithelial Cell,Urine 5-9 High 0-2 [facility] Comment on above: Order Comment: Name Collection Type:: Clean-Voided Midstream Performed By: #### C UU, UCREA, ADDONUAPLUS, URNA ####[place] [id number] [facility] Urobilinogen,Urine Normal Normal Normal [facility] Comment on above: Order Comment: Name Collection Type:: Clean-Voided Midstream Performed By: #### C UU, UCREA, ADDONUAPLUS, URNA ####[place] [id number] [facility] WBC,Urine 20-49 High 0-4 [facility] Comment on above: Order Comment: Name Collection Type:: Clean-Voided Midstream Performed By: #### C UU, UCREA, ADDONUAPLUS, URNA ####[facility] Jacksonw[address] d[address] [place]low [place] [address] [facility] Glucose Poct Glucometerson 0 07-14-2023 Glucose [Mass/Vol] 221 mg/dL Normal [facility] Comment on above: Result Comment: [place] om Glucose Reference Range is dependent on time and content of last meal. Glucose of more than 200 mg/dL in a nonstressed, ambulatory subject supports the diagnosis of Diabetes Mellitus.PERFORMED BY:[address] [place], [place] [phone] MEDICAL DIRECTORJOSEPH GARCIA M.D. Performed By: #### G LULS ####Point of Care testing, Commemt1 Glu2: Cleaned Meter Normal [facility] Comment on above: Result Comment: PERF ORMED BY:[address] SHALINITracyLUZ [place], [place] [phone] MEDICAL DIRECTORJOSEPH GARCIA M.D. Performed By: #### G LULS ####Point of Care testing, Glucose [Mass/Vol] 212 mg/dL Normal [facility] Comment on above: Result Comment: [place] Glucose Reference Range is dependent on time and content of last meal. Glucose of more than 200 mg/dL in a nonstressed, ambulatory subject supports the diagnosis of Diabetes Mellitus. Performed By: #### G LULS ####Point of Care testing, Commemt1 Glu2: Cleaned Meter Normal [facility] Comment on above: Result Comment: PERF ORMED BY:[address] LOYATracyLUZ [place], [place] [phone] MEDICAL DIRECTORJOSEPH GARCIA M.D. Performed By: #### G LULS ####Point of Care testing, Glucose [Mass/Vol] 253 mg/dL Normal [facility] Comment on above: Result Comment: [place] Glucose Reference Range is dependent on time and content of last meal. Glucose of more than 200 mg/dL in a nonstressed, ambulatory subject supports the diagnosis of Diabetes Mellitus. Performed By: #### G LULS ####Point of Care testing, Glucose [Mass/Vol] 158 mg/dL Normal [facility] Comment on above: Result Comment: [place] Glucose Reference Range is dependent on time and content of last meal. Glucose of more than 200 mg/dL in a nonstressed, ambulatory subject supports the diagnosis of Diabetes Mellitus.PERFORMED BY:[facility] [place], [place] [phone] MEDICAL DIRECTORJOSEPH GARCIA M.D. Performed By: #### G LULS ####Point of Care testing, Ketones Auto test strip (U) [Mass/Vol]Ordered By: Tello Nava on 07-14-2023 Ketones (U) [Mass/Vol] Trace Negative [facility] Microcytes LM Ql (Bld)Ordere d By: Shun Manning on 07-14-2023 Microcytes Ql (Bld) Slight [facility] Nitrite Test strip Ql (U)Ord ered By: Tello Nava on 07-14-2023 Nitrite Ql (U) Positive Negative [facility] Sodium [Moles/volume] in Uri neOrdered By: Tello Nava on 07-14-2023 Sodium (U) [Moles/Vol] 25.0 mmol/L Normal [facility] Comment on above: No reference range e stablished Result Comment: No r eference range established Performed By: #### C UU, UCREA, ADDONUAPLUS, URNA ####[facility] [address] [place] [address] [facility] Specific gravity Auto test s trip (U) [Rel density]Ordered By: Tello Nava on 07-14-2023 Specific gravity (U) [Rel density] 1.024 1.001-1.030 [facility] Squamous epithelial cells de tection in urine sediment by light microscopyOrdered By: Tello Nava on 07-14-2023 Epithelial cells.squamous LM Ql (Urine sed) 5-9 [HPF] 0-2 [facility] Urine Cultureon 07-14-2023 Bacteria identified Cx Nom (U) No Growth 2 Days PERFORMED BY: [facility] [address] [place] [address] PATHOLOGIST PIPE RECOVERY SPECIALIST JOSEPH GARCIA M.D. Normal [facility] Comment on above: Performed By: #### C UU, JUMAREJovanny, ADDONUAPLUS, URNA ####[facility] [place] [id number] [facility] Urine bacteria detection by automated methodOrdered By: Tello Nava on 07-14-2023 Bacteria Auto Ql (U) 1+ None Seen [facility] Urine clarity by refractomet ry automatedOrdered By: Tello Nava on 07-14-2023 Clarity Refractometry automated (U) Turbid Clear [facility] Urine culture routineOrdered By: Tello Nava on 07-14-2023 Bacteria identified Cx Nom (U) No Growth 2 Days [facility] Bacteria identified Cx Nom (U) No Growth 2 Days [facility] Urine glucose measurement by automated test strip (mass/volume)Ordered By: Tello Nava on 07-14-2023 Glucose Auto test strip (U) [Mass/Vol] 100 mg/dL Normal [facility] Urine hemoglobin detection b y automated test stripOrdered By: Tello Nava on 07-14-2023 Hemoglobin Auto test strip Ql (U) 3+ Negative [facility] Urine leukocyte esterase det ection by automated test stripOrdered By: Tello Nava on 07-14-2023 Leukocyte esterase Auto test strip Ql (U) 2+ Negative [facility] Urine pH measurement by auto mated test stripOrdered By: Tello Nava on 07-14-2023 pH (U) 5.0 [pH] Normal 5.0-9.0 [facility] Comment on above: Order Comment: Name Collection Type:: Clean-Voided Midstream Performed By: #### C URegina, JUMAREJovanny, ADDONUAPLUS, URNA ####[place] [address] [place] [id number] [facility] Urine protein measurement by automated test strip (mass/volume)Ordered By: Tello Nava on 07-14-2023 Protein (U) [Mass/Vol] 30 mg/dL High Negative [facility] Comment on above: Order Comment: Name Collection Type:: Clean-Voided Midstream Performed By: #### C JAYNE JACOB ADDRICHARDAPOLONIA SADLERMANDEEP ####[place] [address] [place] [address] [facility] Urobilinogen Auto test strip (U) [Mass/Vol]Ordered By: Tello Nava on 07-14-2023 Urobilinogen (U) [Mass/Vol] Normal mg/dL Normal [facility] Basic Metabolic Panelon 06-26 Anion gap [Moles/Vol] 11.2 mmol/L Normal 6.0-15.0 e [facility] Comment on above: Performed By: #### C TOÑA, BMP ####[place] [id number] [facility] Calcium [Mass/Vol] 7.5 mg/dL Low 8.6-10.3 [facility] Comment on above: Performed By: #### C TOÑA, BMP ####[place] [id number] [facility] Chloride [Moles/Vol] 98 mmol/L Normal 98-107 [facility] Comment on above: Performed By: #### C TOÑA, BMP ####[place] [id number] [facility] CO2 [Moles/Vol] 22.6 mmol/L Normal 21.0-31.0 [facility] Comment on above: Performed By: #### C TOÑA, BMP ####[place] [id number] [facility] Creatinine [Mass/Vol] 2.79 mg/dL Significan t change up 0.70-1.30 [facility] Comment on above: Performed By: #### C TOÑA, BMP ####[place] [id number] [facility] Creatinine Clr Calc Pharmacy 27.15 Normal [facility] Comment on above: Result Comment: PERF ORMED BY:[address] [place], [place] [phone] MEDICAL DIRECTORJOSEPH GARCIA M.D. Performed By: #### C TOÑA, BMP ####[address] [address] [place] GFR/1.73 sq M.predicted MDRD (S/P/Bld) [Vol rate/Area] 23.490 mL/min/{1.73_m2} Normal [facility] Comment on above: Performed By: #### C TOÑA, BMP ####[place] [id number] [facility] Glucose [Mass/Vol] 189 mg/dL High 70-100 [facility] Comment on above: Result Comment: [place] Glucose Reference Range is dependent on time and content of last meal. Glucose of more than 200 mg/dL in a nonstressed, ambulatory subject supports the diagnosis of Diabetes Mellitus. ADA recommended reference range Performed By: #### C TOÑA, BMP ####[place] [id number] [facility] Potassium [Moles/Vol] 3.8 mmol/L Normal 3.5-5.1 [facility] Comment on above: Performed By: #### C TOÑA, BMP ####[place] [id number] [facility] Sodium [Moles/Vol] 128 mmol/L Low 136-145 [facility] Comment on above: Performed By: #### Trell DING, BMP ####[place] [id number] [facility] Urea nitrogen [Mass/Vol] 43 mg/dL High 7-25 [facility] Comment on above: Performed By: #### Trell DING, BMP ####[place] [id number] [facility] Glucose Poct Glucometerson 0 07-13-2023 Glucose [Mass/Vol] 235 mg/dL Normal [facility] Comment on above: Result Comment: [place] Glucose Reference Range is dependent on time and content of last meal. Glucose of more than 200 mg/dL in a nonstressed, ambulatory subject supports the diagnosis of Diabetes Mellitus.PERFORMED BY:[place] [address] [place], [place] [phone] MEDICAL DIRECTORJOSEPH GARCAI M.D. Performed By: #### G LULS ####Point of Care testing, Commemt1 Glu2: Cleaned Meter Normal [facility] Comment on above: Result Comment: PERF ORMED BY:[place] [address] [place] [place], [place] [phone] MEDICAL DIRECTORJOSEPH GARCIA M.D. Performed By: #### G LULS ####Point of Care testing, Glucose [Mass/Vol] 230 mg/dL Normal [facility] Comment on above: Result Comment: [place] Glucose Reference Range is dependent on time and content of last meal. Glucose of more than 200 mg/dL in a nonstressed, ambulatory subject supports the diagnosis of Diabetes Mellitus. Performed By: #### G LULS ####Point of Care testing, Glucose [Mass/Vol] 190 mg/dL Normal [facility] Comment on above: Result Comment: [place] Glucose Reference Range is dependent on time and content of last meal. Glucose of more than 200 mg/dL in a nonstressed, ambulatory subject supports the diagnosis of Diabetes Mellitus.PERFORMED BY:[place] [address] [place], [place] [phone] MEDICAL DIRECTORJOSEPH GARCIA M.D. Performed By: #### G LULS ####Point of Care testing, Glucose [Mass/Vol] 202 mg/dL Normal [facility] Comment on above: Result Comment: [place] Glucose Reference Range is dependent on time and content of last meal. Glucose of more than 200 mg/dL in a nonstressed, ambulatory subject supports the diagnosis of Diabetes Mellitus.PERFORMED BY:[place] [address] [place], [place] [phone] MEDICAL DIRECTORJOSEPH GARCIA M.D. Performed By: #### G LULS ####Point of Care testing, Glucose [Mass/Vol] 168 mg/dL Normal [facility] Comment on above: Result Comment: [place] Glucose Reference Range is dependent on time and content of last meal. Glucose of more than 200 mg/dL in a nonstressed, ambulatory subject supports the diagnosis of Diabetes Mellitus.PERFORMED BY:[address] [place], [place] [phone] MEDICAL DIRECTORJOSEPH GARCIA M.D. Performed By: #### G VALERY ####Point of Care testing, Hemogram CBC Without Diffon 07-13-2023 Erythrocyte distribution width (RBC) [Ratio] 13.3 % Normal 12.0-14.8 [facility] Comment on above: Performed By: #### C TOÑA, BMP ####[place] [id number] [facility] Hematocrit (Bld) [Volume fraction] 28.9 % Low 38.8-50.0 [facility] Comment on above: Performed By: #### Trell DING, BMP ####[address] Hemoglobin (Bld) [Mass/Vol] 9.9 g/dL Low 13.0-17.0 [facility] Comment on above: Performed By: #### Trell DING, BMP ####[address] MCH (RBC) [Entitic mass] 30.2 pg Normal 27.5-35.2 [facility] Comment on above: Performed By: #### C TOÑA, BMP ####[address] MCV (RBC) [Entitic vol] 87.6 fL Normal 83.5-101 [facility] Comment on above: Performed By: #### C TOÑA, BMP ####[place] [id number] [facility] Mean Corpuscular HGB Conc 34.5 g/dL Normal 32.5-35.6 [facility] Comment on above: Performed By: #### C TOÑA, BMP ####[place] [id number] [facility] Platelet mean volume (Bld) [Entitic vol] 7.4 fL Normal 6.6-10.1 [facility] Comment on above: Result Comment: PERF ORMED BY:[place] [address] [address] [place] [place], [place] [phone] MEDICAL DIRECTORJOSEPH GARCIA M.D. Performed By: #### C TOÑA, BMP ####[place] [address] [place] [id number] [facility] Platelets (Bld) [#/Vol] 433 10*3/uL Normal 150-450 [facility] Comment on above: Performed By: #### C TOÑA, BMP ####[address] RBC (Bld) [#/Vol] 3.29 10*6/uL Low 3.90-5.60 [facility] Comment on above: Performed By: #### C TOÑA, BMP ####[place] [id number] [facility] WBC (Bld) [#/Vol] 22.4 10*3/uL High 4.1-10.5 [facility] Comment on above: Performed By: #### Terll DING, BMP ####[place] [id number] [facility] US renal BIon 07-13-2023 US renal BI Normal [facility] Vancomycin [Mass/volume] in Serum or Plasma --peakOrdered By: Arnaldo Thomas on 07-13-2023 Vancomycin peak [Mass/Vol] 13.9 ug/mL 20.0-40.0 [facility] Comment on above: Last dose: - Vancomycin,Peakon 07-13-2023 Vancomycin,Peak 13.9 ug/mL Low 20.0-40.0 [facility] Comment on above: Order Comment: Comme nt ?DRAW 1 HOUR AFTER INFUSION COMPLETES Date of last dose?: 20230712 Time of last dose?: 2099 Result Comment: Last dose: -PERFORMED BY:[address] [place] [place], [place] [phone] MEDICAL DIRECTORJOSEPH GARCIA M.D. Performed By: #### V ANCP ####[place] [id number] [facility] Basic Metabolic Panelon 06-26 Anion gap [Moles/Vol] 12.3 mmol/L Normal 6.0-15.0 [facility] Comment on above: Performed By: #### S CAN CBC, BMP ####[place] [id number] [facility] Calcium [Mass/Vol] 7.6 mg/dL Low 8.6-10.3 [facility] Comment on above: Performed By: #### S CAN CBC, BMP ####[address] Chloride [Moles/Vol] 102 mmol/L Normal 98-107 [facility] Comment on above: Performed By: #### S CAN CBC, BMP ####[place] [id number] [facility] CO2 [Moles/Vol] 21.4 mmol/L Normal 21.0-31.0 [facility] Comment on above: Performed By: #### S CAN CBC, BMP ####[place] [id number] [facility] Creatinine [Mass/Vol] 1.17 mg/dL Normal 0.70-1.30 [facility] Comment on above: Performed By: #### S CAN CBC, BMP ####[place] [id number] [facility] Creatinine Clr Calc Pharmacy 64.74 Normal [facility] Comment on above: Result Comment: PERF ORMED BY:[place] [address] [place] [place], [place] [phone] MEDICAL DIRECTORJOSEPH GARCIA M.D. Performed By: #### S CAN CBC, BMP ####[address] [address] [facility] GFR/1.73 sq M.predicted MDRD (S/P/Bld) [Vol rate/Area] mL/min/{1.73_m2} Normal [facility] Comment on above: Performed By: #### S CAN CBC, BMP ####[facility] [place] [address] [facility] Glucose [Mass/Vol] 160 mg/dL High 70-100 The [facility] Comment on above: Result Comment: [place] om Glucose Reference Range is dependent on time and content of last meal. Glucose of more than 200 mg/dL in a nonstressed, ambulatory subject supports the diagnosis of Diabetes Mellitus. ADA recommended reference range Performed By: #### S CAN CBC, BMP ####[place] [address] [place] [address] [facility] Potassium [Moles/Vol] 3.7 mmol/L Normal 3.5-5.1 [facility] Comment on above: Performed By: #### S CAN CBC, BMP ####[address] [address] [facility] Sodium [Moles/Vol] 132 mmol/L Low 136-145 [facility] Comment on above: Performed By: #### S CAN CBC, BMP ####[place] [address] [place] [address] [facility] Urea nitrogen [Mass/Vol] 31 mg/dL High 7-25 [facility] Comment on above: Performed By: #### S CAN CBC, BMP ####[address] [address] [facility] Glucose Poct Glucometerson 0 07-12-2023 Glucose [Mass/Vol] 185 mg/dL Normal [facility] Comment on above: Result Comment: [place] Glucose Reference Range is dependent on time and content of last meal. Glucose of more than 200 mg/dL in a nonstressed, ambulatory subject supports the diagnosis of Diabetes Mellitus.PERFORMED BY:[place] [address] [address] [place], [place] [phone] MEDICAL DIRECTORJOSEPH GARCIA M.D. Performed By: #### G LULS ####Point of Care testing, Commemt1 Glu2: Cleaned Meter Normal [facility] Comment on above: Result Comment: PERF ORMED BY:[place] [address] [address] LATamikoTracyLUZ [place], [place] [phone] MEDICAL DIRECTORJOSEPH GARCIA M.D. Performed By: #### G LULS ####Point of Care testing, Glucose [Mass/Vol] 200 mg/dL Normal [facility] Comment on above: Result Comment: [place] om Glucose Reference Range is dependent on time and content of last meal. Glucose of more than 200 mg/dL in a nonstressed, ambulatory subject supports the diagnosis of Diabetes Mellitus. Performed By: #### G LULS ####Point of Care testing, Glucose [Mass/Vol] 213 mg/dL Normal [facility] Comment on above: Result Comment: [place] om Glucose Reference Range is dependent on time and content of last meal. Glucose of more than 200 mg/dL in a nonstressed, ambulatory subject supports the diagnosis of Diabetes Mellitus.PERFORMED BY:[address] [place], [place] [phone] MEDICAL DIRECTORJOSEPH GARCIA M.D. Performed By: #### G LULS ####Point of Care testing, Glucose [Mass/Vol] 180 mg/dL Normal [facility] Comment on above: Result Comment: [place] om Glucose Reference Range is dependent on time and content of last meal. Glucose of more than 200 mg/dL in a nonstressed, ambulatory subject supports the diagnosis of Diabetes Mellitus.PERFORMED BY:[address]TracyLUZ [place], [place] [phone] MEDICAL SILVIA GARCIA M.D. Performed By: #### G LULS ####Point of Care testing, Scan and CBCon 07-12-2023 Acanthocytes Slight Normal [facility] Comment on above: Performed By: #### S CAN CBC, BMP ####[place] [id number] [facility] Anisocytosis Ql (Bld) Slight Normal [facility] Comment on above: Performed By: #### S CAN CBC, BMP ####[address] [address] [place] Basophils (Bld) [#/Vol] 0.1 10*3/uL Normal 0.0-0.2 [facility] Comment on above: Performed By: #### S CAN CBC, BMP ####[address] Basophils/100 WBC (Bld) 0.3 % Normal . [facility] Comment on above: Performed By: #### S CAN CBC, BMP ####[address] Eosinophils (Bld) [#/Vol] 0.2 10*3/uL Normal 0.0-0.45 [facility] Comment on above: Performed By: #### S CAN CBC, BMP ####[address] Eosinophils/100 WBC (Bld) 0.7 % Normal . [facility] Comment on above: Performed By: #### S CAN CBC, BMP ####[address] Erythrocyte distribution width (RBC) [Ratio] 13.5 % Normal 12.0-14.8 [facility] Comment on above: Performed By: #### S CAN CBC, BMP ####[address] Hematocrit (Bld) [Volume fraction] 30.1 % Low 38.8-50.0 [facility] Comment on above: Performed By: #### S CAN CBC, BMP ####[address] Hemoglobin (Bld) [Mass/Vol] 10.1 g/dL Low 13.0-17.0 [facility] Comment on above: Performed By: #### S CAN CBC, BMP ####[address] Lymphocytes (Bld) [#/Vol] 1.4 10*3/uL Normal 1.00-4.8 [facility] Comment on above: Performed By: #### S CAN CBC, BMP ####[address] Lymphocytes/100 WBC (Bld) 5.3 % Normal . [facility] Comment on above: Performed By: #### S CAN CBC, BMP ####[address] MCH (RBC) [Entitic mass] 29.8 pg Normal 27.5-35.2 [facility] Comment on above: Performed By: #### S CAN CBC, BMP ####[address] MCV (RBC) [Entitic vol] 88.5 fL Normal 83.5-101 [facility] Comment on above: Performed By: #### S CAN CBC, BMP ####[address] Mean Corpuscular HGB Conc 33.6 g/dL Normal 32.5-35.6 [facility] Comment on above: Performed By: #### S CAN CBC, BMP ####[address] Microcytosis Slight Normal [facility] Comment on above: Performed By: #### S CAN CBC, BMP ####[address] Monocytes (Bld) [#/Vol] 2.6 10*3/uL High 0.0-0.8 [facility] Comment on above: Performed By: #### S CAN CBC, BMP ####[address] Monocytes/100 WBC (Bld) 9.6 % Normal . [facility] Comment on above: Performed By: #### S CAN CBC, BMP ####[address] Neutrophils (Bld) [#/Vol] 22.9 10*3/uL High 1.8-7.7 [facility] Comment on above: Performed By: #### S CAN CBC, BMP ####[place] [address] [place] [address] [facility] Neutrophils/100 WBC (Bld) 84.1 % Normal . [facility] Comment on above: Performed By: #### S CAN CBC, BMP ####[place] [address] [place] [address] [facility] NRBC% 0.0 /100{WBC} Normal 0-0.5 The [facility] Comment on above: Performed By: #### S CAN CBC, BMP ####[address] [address] [facility] Platelet Estimate Normal Normal Normal The [facility] Comment on above: Performed By: #### S CAN CBC, BMP ####[place] [address] [place] [address] [facility] Platelet mean volume (Bld) [Entitic vol] 7.7 fL Normal 6.6-10.1 [facility] Comment on above: Performed By: #### S CAN CBC, BMP ####[address] [address] [facility] Platelet Morphology Normal Normal Normal The [facility] Comment on above: Result Comment: PERF ORMED BY:[address] [place], [place] [phone] MEDICAL SILVIA GARCIA M.D. Performed By: #### S CAN CBC, BMP ####[address] [address] [facility] Platelets (Bld) [#/Vol] 451 10*3/uL High 150-450 [facility] Comment on above: Performed By: #### S CAN CBC, BMP ####[address] [address] [facility] Poikilocytosis Slight Normal The [facility] Comment on above: Performed By: #### S CAN CBC, BMP ####[address] [address] [facility] RBC (Bld) [#/Vol] 3.40 10*6/uL Low 3.90-5.60 [facility] Comment on above: Performed By: #### S CAN CBC, BMP ####[place] [address] [place] [address] [facility] WBC (Bld) [#/Vol] 27.3 10*3/uL High 4.1-10.5 [facility] Comment on above: Performed By: #### S CAN CBC, BMP ####[place] [address] [place] [address] [facility] A1C with Estimated Average G luon 07-11-2023 Glucose [Mass/Vol] 186 mg/dL Normal [facility] Comment on above: Result Comment: PERF ORMED BY:[address] [place], [place] [phone] MEDICAL DIRECTORJOSEPH GARCIA M.D. Performed By: #### B MP, A1C WTH eA, DIFF CBC, MG ####[place] [address] [place] [address] [facility] Activated partial thrombopla stin time (aPTT) in platelet poor plasma by coagulation aOrdered By: Jesica Juan on 07-11-2023 aPTT Coag (PPP) [Time] 28.7 s 25.1-36.5 [facility] Comment on above: A hematocrit value g reater than 55% may lead to inaccurate results in coagulation testing. Patients having hematocrit values >55% require a special collection tube for coagulation studies. Please contact the laboratory at [phone] for redraw instructions. Aerobic Cultureon 07-11-2023 Aerobic Culture Normal [facility] Comment on above: Performed By: #### A ERC, GS ####[place] [address] [place] [address] [facility] Basic Metabolic Panelon 06-26 Anion gap [Moles/Vol] 11.6 mmol/L Normal 6.0-15.0 Th e [facility] Comment on above: Performed By: #### B MP, A1C WTH eA, DIFF CBC, MG ####[place] [address] [place] [address] [facility] Calcium [Mass/Vol] 7.4 mg/dL Significant change down 8.6-10.3 [facility] Comment on above: Performed By: #### B MP, A1C WTH eA, DIFF CBC, MG ####[place] [address] [place] Chloride [Moles/Vol] 102 mmol/L Normal 98-107 [facility] Comment on above: Performed By: #### B MP, A1C WTH eA, DIFF CBC, MG ####[place] [id number] [facility] CO2 [Moles/Vol] 22.0 mmol/L Normal 21.0-31.0 The [facility] Comment on above: Performed By: #### B MP, A1C WTH eA, DIFF CBC, MG ####[address] Creatinine [Mass/Vol] 1.07 mg/dL Normal 0.70-1.30 [facility] Comment on above: Performed By: #### B MP, A1C WTH eA, DIFF CBC, MG ####[address] Creatinine Clr Calc Pharmacy 69.79 Normal [facility] Comment on above: Performed By: #### B MP, A1C WTH eA, DIFF CBC, MG ####[place] [id number] [place] GFR/1.73 sq M.predicted MDRD (S/P/Bld) [Vol rate/Area] mL/min/{1.73_m2} Normal [facility] Comment on above: Performed By: #### B MP, A1C WTH eA, DIFF CBC, MG ####[place] [id number] [facility] Glucose [Mass/Vol] 206 mg/dL Significant change up 70-100 [facility] Comment on above: Result Comment: [place] Glucose Reference Range is dependent on time and content of last meal. Glucose of more than 200 mg/dL in a nonstressed, ambulatory subject supports the diagnosis of Diabetes Mellitus. ADA recommended reference range Performed By: #### B MP, A1C WTH eA, DIFF CBC, MG ####[place] [address] [place] [address] [facility] Potassium [Moles/Vol] 3.6 mmol/L Normal 3.5-5.1 [facility] Comment on above: Performed By: #### B MP, A1C WTH eA, DIFF CBC, MG ####[place] [address] [place] [address] [facility] Sodium [Moles/Vol] 132 mmol/L Low 136-145 [facility] Comment on above: Performed By: #### B MP, A1C WTH eA, DIFF CBC, MG ####[address] [address] [facility] Urea nitrogen [Mass/Vol] 25 mg/dL Normal 7-25 [facility] Comment on above: Performed By: #### B MP, A1C WTH eA, DIFF CBC, MG ####[address] [address] [facility] Diff and CBCon 07-11-2023 Acanthocytes Slight Normal [facility] Comment on above: Performed By: #### B MP, A1C WTH eA, DIFF CBC, MG ####[address] [address] [facility] Anisocytosis Ql (Bld) Slight Normal [facility] Comment on above: Performed By: #### B MP, A1C WTH eA, DIFF CBC, MG ####[address] [address] [facility] Band form neutrophils/100 WBC (Bld) 3 % Normal 0-5 [facility] Comment on above: Performed By: #### B MP, A1C WTH eA, DIFF CBC, MG ####[address] [address] [facility] Eosinophils/100 WBC (Bld) 1 % Normal 1-3 [facility] Comment on above: Performed By: #### B MP, A1C WTH eA, DIFF CBC, MG ####[address] [address] [facility] Erythrocyte distribution width (RBC) [Ratio] 13.3 % Normal 12.0-14.8 [facility] Comment on above: Performed By: #### B MP, A1C WTH eA, DIFF CBC, MG ####[address] Hematocrit (Bld) [Volume fraction] 30.9 % Low 38.8-50.0 [facility] Comment on above: Performed By: #### B MP, A1C WTH eA, DIFF CBC, MG ####[address] Hemoglobin (Bld) [Mass/Vol] 10.3 g/dL Low 13.0-17.0 [facility] Comment on above: Performed By: #### B MP, A1C WTH eA, DIFF CBC, MG ####[address] Lymphocytes/100 WBC (Bld) 6 % Low 18-42 [facility] Comment on above: Performed By: #### B MP, A1C WTH eA, DIFF CBC, MG ####[address] MCH (RBC) [Entitic mass] 29.6 pg Normal 27.5-35.2 [facility] Comment on above: Performed By: #### B MP, A1C WTH eA, DIFF CBC, MG ####[address] MCV (RBC) [Entitic vol] 88.9 fL Normal 83.5-101 [facility] Comment on above: Performed By: #### B MP, A1C WTH eA, DIFF CBC, MG ####[address] Mean Corpuscular HGB Conc 33.3 g/dL Normal 32.5-35.6 [facility] Comment on above: Performed By: #### B MP, A1C WTH eA, DIFF CBC, MG ####[address] Metamyelocytes 2 % High 0-0 [facility] Comment on above: Performed By: #### B MP, A1C WTH eA, DIFF CBC, MG ####[facility] [place] [address] [facility] Microcytosis Moderate Normal The [facility] Comment on above: Performed By: #### B MP, A1C WTH eA, DIFF CBC, MG ####[facility] [place] [address] [facility] Monocytes/100 WBC (Bld) 3 % Normal 2-11 [facility] Comment on above: Performed By: #### B MP, A1C WTH eA, DIFF CBC, MG ####[address] [place] [address] [facility] Platelet Estimate Normal Normal Normal The [facility] Comment on above: Performed By: #### B MP, A1C WTH eA, DIFF CBC, MG ####[address] [place] [address] [facility] Platelet mean volume (Bld) [Entitic vol] 7.7 fL Normal 6.6-10.1 [facility] Comment on above: Performed By: #### B MP, A1C WTH eA, DIFF CBC, MG ####[address] [address] [facility] Platelet Morphology Normal Normal Normal [facility] Comment on above: Result Comment: PERF ORMED BY:[address] [place], [place] [phone] MEDICAL DIRECTORJOSEPH GARCIA M.D. Performed By: #### B MP, A1C WTH eA, DIFF CBC, MG ####[address] [address] [facility] Platelets (Bld) [#/Vol] 408 10*3/uL Normal 150-450 [facility] Comment on above: Performed By: #### B MP, A1C WTH eA, DIFF CBC, MG ####[address] [place] [address] [facility] Polychromasia Slight Normal [facility] Comment on above: Performed By: #### B MP, A1C WTH eA, DIFF CBC, MG ####[place] [id number] [facility] RBC (Bld) [#/Vol] 3.47 10*6/uL Low 3.90-5.60 [facility] Comment on above: Performed By: #### B MP, A1C WTH eA, DIFF CBC, MG ####[place] [address] Segmented neutrophils/100 WBC (Bld) 86 % High 50-70 [facility] Comment on above: Performed By: #### B MP, A1C WTH eA, DIFF CBC, MG ####[place] [address] WBC (Bld) [#/Vol] 30.0 10*3/uL High 4.1-10.5 [facility] Comment on above: Performed By: #### B MP, A1C WTH eA, DIFF CBC, MG ####[place] [address] ECG 12 lead ECGon 07-11-2023 ECG 12 lead ECG Normal [facility] Glucose Poct Glucometerson 0 07-11-2023 Glucose [Mass/Vol] 197 mg/dL Normal [facility] Comment on above: Result Comment: [place] Glucose Reference Range is dependent on time and content of last meal. Glucose of more than 200 mg/dL in a nonstressed, ambulatory subject supports the diagnosis of Diabetes Mellitus.PERFORMED BY:[place] [address] [address] [place], [place] [phone] MEDICAL DIRECTORJOSEPH GARCIA M.D. Performed By: #### G LULS ####Point of Care testing, Commemt1 Glu2: Cleaned Meter Normal [facility] Comment on above: Result Comment: PERF ORMED BY:[place] [address] [address] [place], [place] [phone] MEDICAL SILVIA GARCIA M.D. Performed By: #### G LULS ####Point of Care testing, Glucose [Mass/Vol] 159 mg/dL Normal [facility] Comment on above: Result Comment: [place] om Glucose Reference Range is dependent on time and content of last meal. Glucose of more than 200 mg/dL in a nonstressed, ambulatory subject supports the diagnosis of Diabetes Mellitus. Performed By: #### G LULS ####Point of Care testing, Commemt1 Glu2: Cleaned Meter Normal [facility] Comment on above: Result Comment: PERF ORMED BY:[address] [address] [address] [place], [place] [phone] MEDICAL DIRECTORJOSEPH GARCIA M.D. Performed By: #### G LULS ####Point of Care testing, Glucose [Mass/Vol] 172 mg/dL Normal [facility] Comment on above: Result Comment: [place] Glucose Reference Range is dependent on time and content of last meal. Glucose of more than 200 mg/dL in a nonstressed, ambulatory subject supports the diagnosis of Diabetes Mellitus. Performed By: #### G LULS ####Point of Care testing, Commemt1 Glu2: Cleaned Meter Normal [facility] Comment on above: Result Comment: PERF ORMED BY:[address] [place], [place] [phone] MEDICAL DIRECTORJOSEPH GARCIA M.D. Performed By: #### G LULS ####Point of Care testing, Glucose [Mass/Vol] 172 mg/dL Normal [facility] Comment on above: Result Comment: [place] om Glucose Reference Range is dependent on [...] from glycated hemoglobin (Bld) [Mass/Vol] 186 mg/dL [facility] Gram Stainon 07-11-2023 Microscopic observation Gram stain Nom (Unsp spec) Comment deep wound culture left foot Gram Stain Result 1+ Gram Positive Cocci 2+ White Blood Cells PERFORMED BY: [facility] [address] [place] [id number] PATHOLOGIST PIPE RECOVERY SPECIALIST JOSEPH GARCIA M.D. Normal [facility] Comment on above: Performed By: #### A CONOR POLANCO ####[place] [address] [place] [id number] [facility] Microscopic observation Gram stain Nom (Unsp spec) Comment 5th metatarsal bone culture Gram Stain Result 2+ White Blood Cells No Bacteria Seen PERFORMED BY: [facility] [address] [place] [id number] PATHOLOGIST PIPE RECOVERY SPECIALIST JOSEPH GARCIA M.D. Normal The [facility] Comment on above: Performed By: #### A CONOR POLANCO ####[place] [id number] [facility] Gram stain for investigation of transfusion reactionOrdered By: Rohan Han on 07-11-2023 Microscopic observation Gram stain Nom (Unsp spec) Anaerococcus vaginalis [facility] Microscopic observation Gram stain Nom (Unsp spec) Staphylococcus aureus [facility] Hemoglobin A1c percentageOrd ered By: Jesica Juan on 07-11-2023 HbA1c (Bld) [Mass fraction] 8.1 % High 4.3-5.6 [facility] Comment on above: Increased risk for d iabetes: 5.7 - 6.4diabetes: >6.4glycemic control for adults with diabetes: <7.0 Result Comment: Incr eased risk for diabetes: 5.7 - 6.4 diabetes: >6.4 glycemic control for adults with diabetes: <7.0 Performed By: #### B MP, A1C WTH eA, DIFF CBC, MG ####[place] [id number] [facility] INR in Platelet poor plasma by Coagulation assayOrdered By: Jesica Juan on 07-11-2023 INR Coag (PPP) [Relative time] 1.1 {INR} Normal [facility] Comment on above: INR Therapeutic Rang [...] 4.5 Performed By: #### P TT, PT ####[facility] [place] [address] [facility] Neil 07-11-2023 L Normal [facility] MR foot LT wo conon 07-11-19 24 MR foot LT wo con Normal The [facility] Magnesium [Mass/volume] in S rene or PlasmaOrdered By: Jesica Juan on 07-11-2023 Magnesium [Mass/Vol] 1.7 mg/dL Low 1.9-2.7 [facility] Comment on above: Result Comment: PERF ORMED BY:[address] [place], [place] [phone] MEDICAL DIRECTORJOSEPH GARCIA M.D. Performed By: #### B MP, A1C WTH eA, DIFF CBC, MG ####[place] [place] [address] [facility] Microscopic observation Gram stain Nom (Unsp spec)Ordered By: Rohan Han on 07-11-2023 Gram stain for investigation of transfusion reaction Anaerococcus vaginalis [facility] Gram stain for investigation of transfusion reaction Staphylococcus aureus [facility] Partial Thromboplastin Timeo n 07-11-2023 aPTT Coag (Bld) [Time] 28.7 s Normal 25.1-36.5 Th e [facility] Comment on above: Result Comment: A he matocrit value greater than 55% may lead to inaccurate results in coagulation testing. Patients having hematocrit values >55% require a special collection tube for coagulation studies. Please contact the laboratory at [phone] for redraw instructions.PERFORMED BY:[address] [place], [place] [phone] MEDICAL DIRECTORJOSEPH GARCIA M.D. Performed By: #### P TT, PT ####[place] [address] Prothrombin time (PT)Ordered By: Jesica Juan on 07-11-2023 PT Coag (PPP) [Time] 12.7 s Normal 9.0-12.9 [facility] Comment on above: A hematocrit value g reater than 55% may lead to inaccurate results in coagulation testing. Patients having hematocrit values >55% require a special collection tube for coagulation studies. Please contact the laboratory at [phone] for redraw instructions. Result Comment: A he matocrit value greater than 55% may lead to inaccurate results in coagulation testing. Patients having hematocrit values >55% require a special collection tube for coagulation studies. Please contact the laboratory at [phone] for redraw instructions. Performed By: #### P TT, PT ####[place] [id number] [place] [id number] [facility] US arterial pvr rest [place] US arterial pvr rest LE Normal [facility] XR foot LT 2Von 07-11-2023 XR foot LT 2V Normal [facility] Automated basophil %Ordered By: Brittney Hudson on 07-10-2023 Basophils/100 WBC (Bld) 0.1 % Normal . [facility] Comment on above: Performed By: #### B MP, CRP, SCAN CBC, LACTIC, MG, CUBLD ####[address] Automated basophil countOrde red By: Brittney Hudson on 07-10-2023 Basophils (Bld) [#/Vol] 0.0 10*3/uL Normal 0.0-0.2 [facility] Comment on above: Performed By: #### B MP, CRP, SCAN CBC, LACTIC, MG, CUBLD ####[address] Automated blood monocyte cou ntOrdered By: Brittney Hudson on 07-10-2023 Monocytes (Bld) [#/Vol] 2.7 10*3/uL High 0.0-0.8 [facility] Comment on above: Performed By: #### B MP, CRP, SCAN CBC, LACTIC, MG, CUBLD ####[address] Automated eosinophil %Ordere d By: Brittney Hudson on 07-10-2023 Eosinophils/100 WBC (Bld) 0.3 % Normal . [facility] Comment on above: Performed By: #### B MP, CRP, SCAN CBC, LACTIC, MG, CUBLD ####[address] Automated eosinophil countOr dered By: Brittney Hudson on 07-10-2023 Eosinophils (Bld) [#/Vol] 0.1 10*3/uL Normal 0.0-0.45 [facility] Comment on above: Performed By: #### B MP, CRP, SCAN CBC, LACTIC, MG, CUBLD ####[address] Automated monocyte %Ordered By: Brittney Hudson on 07-10-2023 Monocytes/100 WBC (Bld) 8.4 % Normal . [facility] Comment on above: Performed By: #### B MP, CRP, SCAN CBC, LACTIC, MG, CUBLD ####[address] Automated neutrophil %Ordere d By: Brittney Hudson on 07-10-2023 Neutrophils/100 WBC (Bld) 84.7 % Normal . [facility] Comment on above: Performed By: #### B MP, CRP, SCAN CBC, LACTIC, MG, CUBLD ####[address] Bacteria identified Aer cx N om (Unsp spec)Ordered By: Brittney Hudson on 07-10-2023 Superficial Wound Culture Staphylococcus aureus [facility] Aerobic culture Staphylococcus aureus [facility] Bacterial blood cultureOrder ed By: Brittney Hudson on 07-10-2023 Bacteria identified Cx Nom (Bld) NO GROWTH 5 DAYS [facility] Bacteria identified Cx Nom (Bld) NO GROWTH 5 DAYS [facility] Bacteria identified Cx Nom (Bld) NO GROWTH 5 DAYS [facility] Bacteria identified Cx Nom (Bld) NO GROWTH 5 DAYS [facility] Basic Metabolic Panelon 06-26 Creatinine Clr Calc Pharmacy 59.59 Normal [facility] Comment on above: Result Comment: PERF ORMED BY:[address]W[place], [place] [phone] MEDICAL DIRECTORJOSEPH GARCIA M.D. Performed By: #### B MP, CRP, SCAN CBC, LACTIC, MG, CUBLD ####[place] [id number] [facility] GFR/1.73 sq M.predicted MDRD (S/P/Bld) [Vol rate/Area] mL/min/{1.73_m2} Normal [facility] Comment on above: Performed By: #### B MP, CRP, SCAN CBC, LACTIC, MG, CUBLD ####[place] [id number] [facility] Blood Cultureon 07-10-2023 Bacteria identified Cx Nom (Bld) NO GROWTH 5 DAYS PERFORMED BY: [place] [id number] PATHOLOGIST PIPE RECOVERY SPECIALIST JOSEPH GARCIA M.D. Normal [facility] Comment on above: Performed By: #### C UBLD ####[place] [id number] [facility] Bacteria identified Cx Nom (Bld) NO GROWTH 5 DAYS PERFORMED BY: [facility] [address] [place] [id number] PATHOLOGIST PIPE RECOVERY SPECIALIST JOSEPH GARCIA M.D. Normal [facility] Comment on above: Performed By: #### B MP, CRP, SCAN CBC, LACTIC, MG, CUBLD ####[address] [address] [facility] C reactive protein [Mass/vol ume] in Serum or PlasmaOrdered By: Brittney Hudson on 07-10-2023 CRP [Mass/Vol] 28.5 mg/dL 0.0-0.5 [facility] C-Reactive Proteinon 024 C-Reactive Protein 28.5 mg/dL High 0.0-0.5 [facility] Comment on above: Result Comment: PERF ORMED BY:[facility] [place], [place] [phone] MEDICAL DIRECTORJOSEPH GARCIA M.D. Performed By: #### B MP, CRP, SCAN CBC, LACTIC, MG, CUBLD ####[place] [address] [place] [address] [facility] Calcium [Mass/volume] in Ser um or PlasmaOrdered By: Brittney Hudson on 07-10-2023 Calcium [Mass/Vol] 9.1 mg/dL Normal 8.6-10.3 [facility] Comment on above: Performed By: #### B MP, CRP, SCAN CBC, LACTIC, MG, CUBLD ####[place] [address] [place] [address] [facility] Capillary blood glucose nic urement by glucometer (mass/volume)Ordered By: Arnaldo Thomas on 07-10-2023 Glucose [Mass/Vol] 188 mg/dL Normal [facility] Comment on above: Random Glucose Refer ence Range is dependent on time and content of last meal. Glucose of more than 200 mg/dL in a nonstressed, ambulatory subject supports the diagnosis of Diabetes Mellitus. Result Comment: [place] Glucose Reference Range is dependent on time and content of last meal. Glucose of more than 200 mg/dL in a nonstressed, ambulatory subject supports the diagnosis of Diabetes Mellitus. Performed By: #### G LULS ####Point of Care testing, Carbon dioxide, total [Moles /volume] in Serum or PlasmaOrdered By: Brittney Hudson on 07-10-2023 CO2 [Moles/Vol] 25.5 mmol/L Normal 21.0-31.0 [facility] Comment on above: Performed By: #### B MP, CRP, SCAN CBC, LACTIC, MG, CUBLD ####[facility] [id number] [place] [address] [facility] Chloride [Moles/volume] in S rene or PlasmaOrdered By: Brittney Hudson on 07-10-2023 Chloride [Moles/Vol] 98 mmol/L Normal 98-107 [facility] Comment on above: Performed By: #### B MP, CRP, SCAN CBC, LACTIC, MG, CUBLD ####[place] [id number] [facility] Creatinine [Mass/volume] in Serum or PlasmaOrdered By: Brittney Hudson on 07-10-2023 Creatinine [Mass/Vol] 1.23 mg/dL Normal 0.70-1.30 [facility] Comment on above: Performed By: #### B MP, CRP, SCAN CBC, LACTIC, MG, CUBLD ####[place] [address] [place] [id number] [facility] ECG 12 lead ECGon 07-10-2023 ECG 12 lead ECG Normal [facility] Erythrocyte Sedimentation Ra salma 07-10-2023 ESR (Bld) [Velocity] 62 mm/h High 0-19 [facility] Comment on above: Order Comment: Comme nt add on Result Comment: PERF ORMED BY:[address] [place], [place] [phone] MEDICAL DIRECTORJOSEPH GARCIA M.D. Performed By: #### E SR ####[place] [id number] [facility] Erythrocyte distribution wid th [Ratio] by Automated countOrdered By: Brittney Hudson on 07-10-2023 Erythrocyte distribution width (RBC) [Ratio] 13.7 % Normal 12.0-14.8 [facility] Comment on above: Performed By: #### B MP, CRP, SCAN CBC, LACTIC, MG, CUBLD ####[place] [address] [place] [id number] [facility] Erythrocyte sedimentation ra te by Photometric methodOrdered By: Jesica Juan on 07-10-2023 ESR Photometric method (Bld) [Velocity] 62 mm/hr 0-19 [facility] Erythrocytes [#/volume] in B lood by Automated countOrdered By: Brittney Hudson on 07-10-2023 RBC (Bld) [#/Vol] 3.98 10*6/uL Normal 3.90-5.60 [facility] Comment on above: Performed By: #### B MP, CRP, SCAN CBC, LACTIC, MG, CUBLD ####[facility] [place] [address] [facility] Glucose Poct Glucometerson 0 07-10-2023 Commemt1 Glu2: Cleaned Meter Normal [facility] Comment on above: Result Comment: PERF ORMED BY:[address] [place], [place] [phone] MEDICAL DIRECTORJOSEPH GARCIA M.D. Performed By: #### G VALERY ####Point of Care testing, Glucose [Mass/volume] in Ser um or PlasmaOrdered By: Brittney Hudson on 07-10-2023 Glucose [Mass/Vol] 57 mg/dL Low 70-100 [facility] Comment on above: ADA recommended refe rence rangeRandom Glucose Reference Range is dependent on time and content of last meal. Glucose of more than 200 mg/dL in a nonstressed, ambulatory subject supports the diagnosis of Diabetes Mellitus. Result Comment: [place] om Glucose Reference Range is dependent on time and content of last meal. Glucose of more than 200 mg/dL in a nonstressed, ambulatory subject supports the diagnosis of Diabetes Mellitus. ADA recommended reference range Performed By: #### B MP, CRP, SCAN CBC, LACTIC, MG, CUBLD ####[facility] [place] [address] [facility] Hematocrit [Volume Fraction] of Blood by Automated countOrdered By: Brittney Hudson on 07-10-2023 Hematocrit (Bld) [Volume fraction] 35.3 % Low 38.8-50.0 [facility] Comment on above: Performed By: #### B MP, CRP, SCAN CBC, LACTIC, MG, CUBLD ####[place] [address] [place] [address] [facility] Hemoglobin [Mass/volume] in BloodOrdered By: Brittney Hudson on 07-10-2023 Hemoglobin (Bld) [Mass/Vol] 11.9 g/dL Low 13.0-17.0 [facility] Comment on above: Performed By: #### B MP, CRP, SCAN CBC, LACTIC, MG, CUBLD ####[place] [address] [place] [address] [facility] Lactate [Moles/volume] in Se rum or PlasmaOrdered By: Brittney Hudson on 07-10-2023 Lactate [Moles/Vol] 1.2 mmol/L 0.5-2.2 [facility] Lactic Acidon 07-10-2023 Lactate [Moles/Vol] 3.3 mmol/L Off scale high 0.5-2.2 [facility] Comment on above: Result Comment: Crit ical Result : Called to and read back by: GILA RIBEIRO at: 07/10/2023 19:52:18 by:DCPERFORMED BY:[place] [address] [address] [place], [place] [phone] MEDICAL DIRECTORJOSEPH GARCIA M.D. Performed By: #### B MP, CRP, SCAN CBC, LACTIC, MG, CUBLD ####[place] [address] [place] [address] [facility] Lactic Acid Reflexon 024 Lactic Acid Reflex 1.2 mmol/L Normal 0.5-2.2 [facility] Comment on above: Result Comment: PERF ORMED BY:[place] [address] [address] [place], [place] [phone] MEDICAL DIRECTORJOSEPH GARCIA M.D. Performed By: #### L ACTIC RFX ####[place] [address] [place] [address] [facility] Leukocytes [#/volume] correc jewel for nucleated erythrocytes in Blood by Automated counOrdered By: Brittney Hudson on 07-10-2023 WBC corrected for nucl RBC Auto (Bld) [#/Vol] 32.8 10*3/uL 4.1-10.5 [facility] Leukocytes [#/volume] in Blo od by Automated countOrdered By: Brittney Hudson on 07-10-2023 WBC (Bld) [#/Vol] 32.8 10*3/uL High 4.1-10.5 [facility] Comment on above: Performed By: #### B MP, CRP, SCAN CBC, LACTIC, MG, CUBLD ####[address] Lymphocytes [#/volume] in Bl ood by Automated countOrdered By: Brittney Hudson on 07-10-2023 Lymphocytes (Bld) [#/Vol] 2.1 10*3/uL Normal 1.00-4.8 [facility] Comment on above: Performed By: #### B MP, CRP, SCAN CBC, LACTIC, MG, CUBLD ####[address] Lymphocytes/100 leukocytes i n Blood by Automated countOrdered By: Brittney Hudson on 07-10-2023 Lymphocytes/100 WBC (Bld) 6.5 % Normal . [facility] Comment on above: Performed By: #### B MP, CRP, SCAN CBC, LACTIC, MG, CUBLD ####[address] MCH [Entitic mass] by Automa jewel countOrdered By: Brittney Hudson on 07-10-2023 MCH (RBC) [Entitic mass] 29.8 pg Normal 27.5-35.2 [facility] Comment on above: Performed By: #### B MP, CRP, SCAN CBC, LACTIC, MG, CUBLD ####[place] [id number] [facility] MCHC Auto (RBC) [Mass/Vol]Or dered By: Brittney Hudson on 07-10-2023 MCHC (RBC) [Mass/Vol] 33.6 g/dL 32.5-35.6 [facility] MCV [Entitic volume] by Auto mated countOrdered By: Brittney Hudson on 07-10-2023 MCV (RBC) [Entitic vol] 88.6 fL Normal 83.5-101 [facility] Comment on above: Performed By: #### B MP, CRP, SCAN CBC, LACTIC, MG, CUBLD ####[place] [address] Magnesium [Mass/volume] in S rene or PlasmaOrdered By: Brittney Hudson on 07-10-2023 Magnesium [Mass/Vol] 1.9 mg/dL Normal 1.9-2.7 [facility] Comment on above: Performed By: #### B MP, CRP, SCAN CBC, LACTIC, MG, CUBLD ####[place] [address] Monocyte distribution width [Entitic volume] in Blood by AutomatedOrdered By: Brittney Hudson on 07-10-2023 Monocyte distribution width Auto (Bld) [Entitic vol] 22.38 % 0.00-20.00 [facility] Comment on above: For adults in ED, MD W > 20.0 may be associated with a higher risk of sepsis during the first 12 hrs of hospital admission Neutrophils [#/volume] in Bl ood by Automated countOrdered By: Brittney Hudson on 07-10-2023 Neutrophils (Bld) [#/Vol] 27.7 10*3/uL High 1.8-7.7 [facility] Comment on above: Performed By: #### B MP, CRP, SCAN CBC, LACTIC, MG, CUBLD ####[address] No Panel InformationOrdered By: Arnaldo Thomas on 07-10-2023 Bedside Glucose Comment Glu2: cleaned meter [facility] No Panel InformationOrdered By: Brittney Hudson on 07-10-2023 Estimated GFR (CKD-EPI) > 60.0 mL/Min [facility] Creatinine Clearance (Chem 59.59 [facility] Nucleated erythrocytes [Pres ence] in Blood by Automated countOrdered By: Brittney Hudson on 07-10-2023 Nucleated RBC Auto Ql (Bld) 0.0 /100{WBC} 0-0.5 [facility] Platelet adequacy [Presence] in Blood by Light microscopyOrdered By: Brittney Hudson on 07-10-2023 Platelets LM Ql (Bld) Increased Normal [facility] Platelet mean volume [Entiti c volume] in Blood by Automated countOrdered By: Brittney Hudson on 07-10-2023 Platelet mean volume (Bld) [Entitic vol] 7.7 fL Normal 6.6-10.1 [facility] Comment on above: Performed By: #### B MP, CRP, SCAN CBC, LACTIC, MG, CUBLD ####[place] [address] Platelet morphology finding [Identifier] in BloodOrdered By: Brittney Hudson on 07-10-2023 Platelet morphology finding Nom (Bld) N/A [facility] Platelets Large [Presence] i n Blood by Light microscopyOrdered By: Brittney Hudson on 07-10-2023 Platelets Large LM Ql (Bld) Slight [facility] Platelets [#/volume] in Bloo d by Automated countOrdered By: Brittney Hudson on 07-10-2023 Platelets (Bld) [#/Vol] 502 10*3/uL High 150-450 [facility] Comment on above: Performed By: #### B MP, CRP, SCAN CBC, LACTIC, MG, CUBLD ####[address] Potassium [Moles/volume] in Serum or PlasmaOrdered By: Brittney Hudson on 07-10-2023 Potassium [Moles/Vol] 3.3 mmol/L Low 3.5-5.1 [facility] Comment on above: Performed By: #### B MP, CRP, SCAN CBC, LACTIC, MG, CUBLD ####[place] [id number] [facility] RBC morphologyOrdered By: Elizabeth Hudson on 07-10-2023 RBC morphology finding Nom (Bld) Normal Normal Normal [facility] Comment on above: Performed By: #### B MP, CRP, SCAN CBC, LACTIC, MG, CUBLD ####[place] [id number] [facility] Scan and CBCon 07-10-2023 Large Platelets Slight Normal [facility] Comment on above: Result Comment: PERF ORMED BY:[address] [place]BO[place], [place] [phone] MEDICAL DIRECTORJOSEPH GARCIA M.D. Performed By: #### B MP, CRP, SCAN CBC, LACTIC, MG, CUBLD ####[address] Mean Corpuscular HGB Conc 33.6 g/dL Normal 32.5-35.6 [facility] Comment on above: Performed By: #### B MP, CRP, SCAN CBC, LACTIC, MG, CUBLD ####[address] Monocytes/100 WBC (Bld) 22.38 % High 0.00-20.00 [facility] Comment on above: Result Comment: For adults in ED, MDW > 20.0 may be associated with a higher risk of sepsis during the first 12 hrs of hospital admission Performed By: #### B MP, CRP, SCAN CBC, LACTIC, MG, CUBLD ####[address] NRBC% 0.0 /100{WBC} Normal 0-0.5 [facility] Comment on above: Performed By: #### B MP, CRP, SCAN CBC, LACTIC, MG, CUBLD ####[address] Platelet Estimate Increased Normal Normal The [facility] Comment on above: Performed By: #### B MP, CRP, SCAN CBC, LACTIC, MG, CUBLD ####[place] [id number] [facility] Serum or plasma anion gap de terminationOrdered By: Brittney Hudson on 07-10-2023 Anion gap [Moles/Vol] 15.8 mmol/L High 6.0-15.0 [facility] Comment on above: Performed By: #### B MP, CRP, SCAN CBC, LACTIC, MG, CUBLD ####[facility] [id number] [place] [address] [facility] Sodium [Moles/volume] in Ser um or PlasmaOrdered By: Brittney Hudson on 07-10-2023 Sodium [Moles/Vol] 136 mmol/L Normal 136-145 [facility] Comment on above: Performed By: #### B MP, CRP, SCAN CBC, LACTIC, MG, CUBLD ####[facility] [id number] [place] [address] [facility] Superficial Wound Cultureon 07-10-2023 Superficial Wound Culture Normal [facility] Comment on above: Performed By: #### C USUP ####[place] [address] [place] [phone] [facility] Urea nitrogen [Mass/volume] in Serum or PlasmaOrdered By: Brittney Hudson on 07-10-2023 Urea nitrogen [Mass/Vol] 23 mg/dL Normal 7-25 [facility] Comment on above: Performed By: #### B MP, CRP, SCAN CBC, LACTIC, MG, CUBLD ####[place] [address] [place] [address] [facility] XR foot LT min 3V*on 024 XR foot LT min 3V* Normal [facility] A1C HEMOGLOBINon 06-26-2023 HbA1c (Bld) [Mass fraction] 7.7 % [employer] Other Glucose - FINGER STICKon Glucose [Mass/Vol] 178 mg/dL [employer] Other HbA1c (Bld) [Mass fraction]o n 06-26-2023 A1C HEMOGLOBIN [employer] Other C reactive protein [Mass/vol ume] in Serum or PlasmaOrdered By: Michael Ramírez on 03-31-2023 CRP [Mass/Vol] 8.9 mg/dL 0.0-0.5 [facility] C-Reactive Proteinon 023 C-Reactive Protein 8.9 mg/dL High 0.0-0.5 [facility] Comment on above: Result Comment: PERF ORMED BY:[place] [address] [address] [place], [place] [phone] MEDICAL DIRECTORJOSEPH GARCIA M.D. Performed By: #### C RP, CREAT ####[place] [address] [place] [address] [facility] Creatinineon 03-31-2023 GFR/1.73 sq M.predicted MDRD (S/P/Bld) [Vol rate/Area] mL/min/{1.73_m2} Normal [facility] Comment on above: Performed By: #### C RP, CREAT ####[address] [address] [facility] Creatinine [Mass/volume] in Serum or PlasmaOrdered By: Michael Ramírez on 03-31-2023 Creatinine [Mass/Vol] 0.85 mg/dL Normal 0.70-1.30 [facility] Comment on above: Performed By: #### C RP, CREAT ####[place] [id number] [facility] No Panel InformationOrdered By: Michael Ramírez on 03-31-2023 Estimated GFR (CKD-EPI) > 60.0 mL/Min [facility] Creatinine Clearance (Chem N/A [facility] MR foot LT wo conon 03-25-20 23 MR foot LT wo con Normal [facility] C reactive protein [Mass/vol ume] in Serum or PlasmaOrdered By: Michael Ramírez on 03-24-2023 CRP [Mass/Vol] 1.6 mg/dL 0.0-0.5 [facility] C-Reactive Proteinon 023 C-Reactive Protein 1.6 mg/dL High 0.0-0.5 [facility] Comment on above: Result Comment: PERF ORMED BY:[place] [address] [address] [place], [place] [phone] MEDICAL DIRECTORJOSEPH GARCIA M.D. Performed By: #### C REAT, CRP ####[address] [address] [place] Creatinineon 03-24-2023 GFR/1.73 sq M.predicted MDRD (S/P/Bld) [Vol rate/Area] mL/min/{1.73_m2} Normal [facility] Comment on above: Performed By: #### C REAT, CRP ####[facility] [place] [address] [facility] Creatinine [Mass/volume] in Serum or PlasmaOrdered By: Michael Ramírez on 03-24-2023 Creatinine [Mass/Vol] 0.85 mg/dL Normal 0.70-1.30 [facility] Comment on above: Performed By: #### C REAT, CRP ####[place] [address] [place] [address] [facility] No Panel InformationOrdered By: Michael Ramírez on 03-24-2023 Estimated GFR (CKD-EPI) > 60.0 mL/Min [facility] Creatinine Clearance (Chem N/A [facility] A1C HEMOGLOBINon 03-20-2023 HbA1c (Bld) [Mass fraction] 6.4 % [employer] Other Glucose - FINGER STICKon Glucose [Mass/Vol] 179 mg/dL [employer] Other HbA1c (Bld) [Mass fraction]o n 03-20-2023 A1C HEMOGLOBIN [employer] Other C reactive protein [Mass/vol ume] in Serum or PlasmaOrdered By: Michael Ramírez on 03-17-2023 CRP [Mass/Vol] 1.6 mg/dL 0.0-0.5 [facility] C-Reactive Proteinon 023 C-Reactive Protein 1.6 mg/dL High 0.0-0.5 [facility] Comment on above: Result Comment: PERF ORMED BY:[place] [address] [address] [place], [place] [phone] MEDICAL SILVIA GARCIA M.D. Performed By: #### C REAT, CRP ####[place] [address] [place] [address] [facility] Creatinineon 03-17-2023 GFR/1.73 sq M.predicted MDRD (S/P/Bld) [Vol rate/Area] mL/min/{1.73_m2} Normal [facility] Comment on above: Performed By: #### C REAT, CRP ####[place] [address] [place] [address] [facility] Creatinine [Mass/volume] in Serum or PlasmaOrdered By: Michael Ramírez on 03-17-2023 Creatinine [Mass/Vol] 1.20 mg/dL Normal 0.70-1.30 [facility] Comment on above: Performed By: #### C REMICHELLE, CRP ####[place] [address] [place] [address] [facility] No Panel InformationOrdered By: Michael Ramírez on 03-17-2023 Estimated GFR (CKD-EPI) > 60.0 mL/Min [facility] Creatinine Clearance (Chem N/A [facility] C reactive protein [Mass/vol ume] in Serum or PlasmaOrdered By: Michael Ramírez on 03-10-2023 CRP [Mass/Vol] 0.8 mg/dL 0.0-0.5 [facility] C-Reactive Proteinon 023 C-Reactive Protein 0.8 mg/dL High 0.0-0.5 [facility] Comment on above: Result Comment: PERF ORMED BY:[address] [place] [place], [place] [phone] MEDICAL DIRECTORJOSEPH GARCIA M.D. Performed By: #### C RP, CREAT ####[place] [address] [place] [address] [facility] Creatinineon 03-10-2023 GFR/1.73 sq M.predicted MDRD (S/P/Bld) [Vol rate/Area] mL/min/{1.73_m2} Normal [facility] Comment on above: Performed By: #### C RP, CREAT ####[address] [address] [facility] Creatinine [Mass/volume] in Serum or PlasmaOrdered By: Mihcael Ramírez on 03-10-2023 Creatinine [Mass/Vol] 1.12 mg/dL Normal 0.70-1.30 [facility] Comment on above: Performed By: #### C SORAYA VIDAL ####[facility] [id number] [place] [address] [facility] No Panel InformationOrdered By: Michael Ramírez on 03-10-2023 Estimated GFR (CKD-EPI) > 60.0 mL/Min [facility] Creatinine Clearance (Chem N/A [facility] Capillary blood glucose nic urement by glucometer (mass/volume)Ordered By: Orestes Mejia on 03-04-2023 Glucose [Mass/Vol] 185 mg/dL Normal [facility] Comment on above: Random Glucose Refer ence Range is dependent on time and content of last meal. Glucose of more than 200 mg/dL in a nonstressed, ambulatory subject supports the diagnosis of Diabetes Mellitus. Result Comment: [facility] Glucose Reference Range is dependent on time and content of last meal. Glucose of more than 200 mg/dL in a nonstressed, ambulatory subject supports the diagnosis of Diabetes Mellitus.PERFORMED BY:[address] [place], [place] [phone] MEDICAL DIRECTORJOSEPH GARCIA M.D. Performed By: #### G LULS ####Point of Care testing, Glucose Poct Glucometerson 1 Glucose [Mass/Vol] 121 mg/dL Normal [facility] Comment on above: Result Comment: [facility] Glucose Reference Range is dependent on time and content of last meal. Glucose of more than 200 mg/dL in a nonstressed, ambulatory subject supports the diagnosis of Diabetes Mellitus.PERFORMED BY:[address] [place], [place] [phone] MEDICAL SILVIA GARCIA M.D. Performed By: #### G LULS ####Point of Care testing, Glucose [Mass/Vol] 94 mg/dL Normal [facility] Comment on above: Result Comment: [facility] Glucose Reference Range is dependent on time and content of last meal. Glucose of more than 200 mg/dL in a nonstressed, ambulatory subject supports the diagnosis of Diabetes Mellitus.PERFORMED BY:[address] [place], [place] [phone] MEDICAL DIRECTORJOSEPH GARCIA M.D. Performed By: #### G LULS ####Point of Care testing, Alanine aminotransferase [En zymatic activity/volume] in Serum or PlasmaOrdered By: Eulogio Ruvalcaba on 03-03-2023 ALT [Catalytic activity/Vol] 14 U/L Normal 7-52 [facility] Comment on above: Performed By: #### C BC, CMP ####[place] [id number] [place] [id number] [place] Albumin [Mass/volume] in Ser um or Plasma by Bromocresol green (BCG) dye binding methoOrdered By: Eulogio Ruvalcaba on 03-03-2023 Albumin BCG dye [Mass/Vol] 3.2 g/dL 3.5-5.7 [facility] Alkaline phosphatase [Enzyma tic activity/volume] in Serum or PlasmaOrdered By: Eulogio Ruvalcaba on 03-03-2023 ALP [Catalytic activity/Vol] 62 U/L Normal 34-104 [facility] Comment on above: Performed By: #### C HIGINIO, CMP ####[address] [address] [facility] Aspartate aminotransferase [ Enzymatic activity/volume] in Serum or PlasmaOrdered By: Eulogio Ruvalcaba on 03-03-2023 AST [Catalytic activity/Vol] 17 U/L Normal 13-39 [facility] Comment on above: Performed By: #### C BC, CMP ####[address] [address] [place] [address] [facility] Automated basophil %Ordered By: Eulogio Ruvalcaba on 03-03-2023 Basophils/100 WBC (Bld) 0.6 % Normal . [facility] Comment on above: Performed By: #### C BC, CMP ####[address] [address] [facility] Automated basophil countOrde red By: Eulogio Ruvalcaba on 03-03-2023 Basophils (Bld) [#/Vol] 0.1 10*3/uL Normal 0.0-0.2 [facility] Comment on above: Result Comment: PERF ORMED BY:[address] [place], [place] [phone] MEDICAL DIRECTORJOSEPH GARCIA M.D. Performed By: #### C BC, CMP ####[address] Automated blood monocyte cou ntOrdered By: Eulogio Peg on 03-03-2023 Monocytes (Bld) [#/Vol] 1.2 10*3/uL High 0.0-0.8 [facility] Comment on above: Performed By: #### C BC, CMP ####[address] Automated eosinophil %Ordere d By: Eulogio Peg on 03-03-2023 Eosinophils/100 WBC (Bld) 3.4 % Normal . [facility] Comment on above: Performed By: #### C BC, CMP ####[address] Automated eosinophil countOr dered By: Eulogio Peg on 03-03-2023 Eosinophils (Bld) [#/Vol] 0.4 10*3/uL Normal 0.0-0.45 [facility] Comment on above: Performed By: #### C BC, CMP ####[address] Automated monocyte %Ordered By: Eulogio Peg on 03-03-2023 Monocytes/100 WBC (Bld) 9.4 % Normal . [facility] Comment on above: Performed By: #### C BC, CMP ####[address] Automated neutrophil %Ordere d By: Eulogio Peg on 03-03-2023 Neutrophils/100 WBC (Bld) 61.9 % Normal . [facility] Comment on above: Performed By: #### C BC, CMP ####[address] [address] [facility] Bilirubin.total [Mass/volume ] in Serum or PlasmaOrdered By: Eulogio Ruvalcaba on 03-03-2023 Bilirubin [Mass/Vol] 0.4 mg/dL Normal 0.3-1.0 [facility] Comment on above: Performed By: #### C BC, CMP ####[address] [address] [place] C reactive protein [Mass/vol ume] in Serum or PlasmaOrdered By: Michael Ramírez on 03-03-2023 CRP [Mass/Vol] 1.1 mg/dL 0.0-0.5 [facility] C-Reactive Proteinon 023 C-Reactive Protein 1.1 mg/dL High 0.0-0.5 [facility] Comment on above: Result Comment: PERF ORMED BY:[address] [place], [place] [phone] MEDICAL DIRECTORJOSEPH GARCIA M.D. Performed By: #### E SR, CRP ####[address] [address] [place] Calcium [Mass/volume] in Ser um or PlasmaOrdered By: Eulogio Ruvalcaba on 03-03-2023 Calcium [Mass/Vol] 8.7 mg/dL Normal 8.6-10.3 [facility] Comment on above: Performed By: #### C BC, CMP ####[address] [address] [facility] Carbon dioxide, total [Moles /volume] in Serum or PlasmaOrdered By: Eulogio Peg on 03-03-2023 CO2 [Moles/Vol] 31.2 mmol/L High 21.0-31.0 [facility] Comment on above: Performed By: #### C BC, CMP ####[address] [address] [place] Chloride [Moles/volume] in S rene or PlasmaOrdered By: Eulogio Peg on 03-03-2023 Chloride [Moles/Vol] 103 mmol/L Normal 98-107 [facility] Comment on above: Performed By: #### C BC, CMP ####[address] [address] [facility] Complete Blood Count Auto Di ffon 03-03-2023 Mean Corpuscular HGB Conc 33.8 g/dL Normal 32.5-35.6 [facility] Comment on above: Performed By: #### C BC, CMP ####[place] [id number] [facility] NRBC% 0.1 /100{WBC} Normal 0-0.5 [facility] Comment on above: Performed By: #### C BC, CMP ####[address] [address] [facility] Comprehensive Metabolic Pane neil 03-03-2023 Albumin [Mass/Vol] 3.2 g/dL Low 3.5-5.7 [facility] Comment on above: Performed By: #### C BC, CMP ####[place] [id number] [facility] Creatinine Clr Calc Pharmacy 54.47 Normal [facility] Comment on above: Result Comment: PERF ORMED BY:[address] [place], [place] [phone] MEDICAL SILVIA GARCIA M.D. Performed By: #### C BC, CMP ####[address] [address] [facility] GFR/1.73 sq M.predicted MDRD (S/P/Bld) [Vol rate/Area] 54.671 mL/min/{1.73_m2} Normal [facility] Comment on above: Performed By: #### C BC, CMP ####[place] [id number] [facility] Creatinine [Mass/volume] in Serum or PlasmaOrdered By: Eulogio Ruvalcaba on 03-03-2023 Creatinine [Mass/Vol] 1.38 mg/dL High 0.70-1.30 [facility] Comment on above: Performed By: #### C HIGINIO, CMP ####[address] [address] [place] [address] [facility] Erythrocyte Sedimentation Ra salma 03-03-2023 ESR (Bld) [Velocity] 48 mm/h High 0- [facility] Comment on above: Result Comment: PERF ORMED BY:[place] [address] [address] [place] [place], [place] [phone] MEDICAL DIRECTORJOSEPH GARCIA M.D. Performed By: #### E SR, CRP ####[address] [address] [facility] Erythrocyte distribution wid th [Ratio] by Automated countOrdered By: Eulogio Ruvalcaba on 03-03-2023 Erythrocyte distribution width (RBC) [Ratio] 13.7 % Normal 12.0-14.8 [facility] Comment on above: Performed By: #### C HIGINIO, CMP ####[address] [address] [facility] Erythrocyte sedimentation ra te by Photometric methodOrdered By: Michael Ramírez on 03-03-2023 ESR Photometric method (Bld) [Velocity] 48 mm/hr 0- [facility] Erythrocytes [#/volume] in B lood by Automated countOrdered By: Eulogio Ruvalcaba on 03-03-2023 RBC (Bld) [#/Vol] 3.46 10*6/uL Low 3.90-5.60 [facility] Comment on above: Performed By: #### C HIGINIO, CMP ####[address] [address] [facility] Glucose Poct Glucometerson 1 Glucose [Mass/Vol] 189 mg/dL Normal [facility] Comment on above: Result Comment: [place] Glucose Reference Range is dependent on time and content of last meal. Glucose of more than 200 mg/dL in a nonstressed, ambulatory subject supports the diagnosis of Diabetes Mellitus.PERFORMED BY:[place] [address] [address] [place] [place], [place] [phone] MEDICAL DIRECTORDONATOLAN SUN M.D. Performed By: #### G LULS ####Point of Care testing, Glucose [Mass/Vol] 150 mg/dL Normal [facility] Comment on above: Result Comment: [place] Glucose Reference Range is dependent on time and content of last meal. Glucose of more than 200 mg/dL in a nonstressed, ambulatory subject supports the diagnosis of Diabetes Mellitus.PERFORMED BY:[place] [address] [place] [place], [place] [phone] MEDICAL SILVIA GARCIA M.D. Performed By: #### G LULS ####Point of Care testing, Glucose [Mass/Vol] 226 mg/dL Normal [facility] Comment on above: Result Comment: [facility] Glucose Reference Range is dependent on time and content of last meal. Glucose of more than 200 mg/dL in a nonstressed, ambulatory subject supports the diagnosis of Diabetes Mellitus.PERFORMED BY:[address] [place], [place] [phone] ELAINE GARCIA M.D. Performed By: #### G LULS ####Point of Care testing, Glucose [Mass/Vol] 96 mg/dL Normal [facility] Comment on above: Result Comment: [place] Glucose Reference Range is dependent on time and content of last meal. Glucose of more than 200 mg/dL in a nonstressed, ambulatory subject supports the diagnosis of Diabetes Mellitus.PERFORMED BY:[address] [address] [place], [place] [phone] ELAINE GARCIA M.D. Performed By: #### G LULS ####Point of Care testing, Glucose [Mass/Vol] 87 mg/dL Normal [facility] Comment on above: Result Comment: [facility] Glucose Reference Range is dependent on time and content of last meal. Glucose of more than 200 mg/dL in a nonstressed, ambulatory subject supports the diagnosis of Diabetes Mellitus.PERFORMED BY:[place] [address] [place], [place] [phone] MEDICAL DIRECTORJOSEPH GARCIA M.D. Performed By: #### G VALERY ####Point of Care testing, Glucose [Mass/Vol] 72 mg/dL Normal [facility] Comment on above: Result Comment: [place] Glucose Reference Range is dependent on time and content of last meal. Glucose of more than 200 mg/dL in a nonstressed, ambulatory subject supports the diagnosis of Diabetes Mellitus.PERFORMED BY:[address] [place], [place] [phone] MEDICAL DIRECTORJOSEPH GARCIA M.D. Performed By: #### G VALERY ####Point of Care testing, Glucose [Mass/volume] in Ser um or PlasmaOrdered By: Eulogio Ruvalcaba on 03-03-2023 Glucose [Mass/Vol] 82 mg/dL Normal 70-100 [facility] Comment on above: ADA recommended refe rence rangeRandom Glucose Reference Range is dependent on time and content of last meal. Glucose of more than 200 mg/dL in a nonstressed, ambulatory subject supports the diagnosis of Diabetes Mellitus. Result Comment: [place] Glucose Reference Range is dependent on time and content of last meal. Glucose of more than 200 mg/dL in a nonstressed, ambulatory subject supports the diagnosis of Diabetes Mellitus. ADA recommended reference range Performed By: #### C BC, CMP ####[place] [id number] [facility] Hematocrit [Volume Fraction] of Blood by Automated countOrdered By: Eulogio Ruvalcaba on 03-03-2023 Hematocrit (Bld) [Volume fraction] 30.7 % Low 38.8-50.0 [facility] Comment on above: Performed By: #### C BC, CMP ####[place] [id number] [facility] Hemoglobin [Mass/volume] in BloodOrdered By: Eulogio Ruvalcaba on 03-03-2023 Hemoglobin (Bld) [Mass/Vol] 10.4 g/dL Low 13.0-17.0 [facility] Comment on above: Performed By: #### C BC, CMP ####[address] [place] [address] [facility] Leukocytes [#/volume] correc jewel for nucleated erythrocytes in Blood by Automated counOrdered By: Eulogio Ruvalcaba on 03-03-2023 WBC corrected for nucl RBC Auto (Bld) [#/Vol] 12.4 10*3/uL 4.1-10.5 [facility] Leukocytes [#/volume] in Blo od by Automated countOrdered By: Eulogio Peg on 03-03-2023 WBC (Bld) [#/Vol] 12.4 10*3/uL High 4.1-10.5 [facility] Comment on above: Performed By: #### C HIGINIO, CMP ####[place] [id number] [facility] Lymphocytes [#/volume] in Bl ood by Automated countOrdered By: Eulogio Ruvalcaba on 03-03-2023 Lymphocytes (Bld) [#/Vol] 3.1 10*3/uL Normal 1.00-4.8 [facility] Comment on above: Performed By: #### C HIGINIO, CMP ####[address] Lymphocytes/100 leukocytes i n Blood by Automated countOrdered By: Eulogio Ruvalcaba on 03-03-2023 Lymphocytes/100 WBC (Bld) 24.7 % Normal . [facility] Comment on above: Performed By: #### C HIGINIO, CMP ####[address] MCH [Entitic mass] by Automa jewel countOrdered By: Eulogio Ruvalcaba on 03-03-2023 MCH (RBC) [Entitic mass] 30.0 pg Normal 27.5-35.2 [facility] Comment on above: Performed By: #### C BC, CMP ####[address] MCHC Auto (RBC) [Mass/Vol]Or dered By: Eulogio Peg on 03-03-2023 MCHC (RBC) [Mass/Vol] 33.8 g/dL 32.5-35.6 [facility] MCV [Entitic volume] by Auto mated countOrdered By: Eulogio Ruvalcaba on 03-03-2023 MCV (RBC) [Entitic vol] 88.7 fL Normal 83.5-101 [facility] Comment on above: Performed By: #### C BC, CMP ####[place] [address] [place] [id number] [facility] Neutrophils [#/volume] in Bl ood by Automated countOrdered By: Eulogio Ruvalcaba on 03-03-2023 Neutrophils (Bld) [#/Vol] 7.7 10*3/uL Normal 1.8-7.7 [facility] Comment on above: Performed By: #### C BC, CMP ####[place] [id number] [facility] No Panel InformationOrdered By: Eulogio Ruvalcaba on 03-03-2023 Estimated GFR (CKD-EPI) 54.671 mL/Min [facility] Creatinine Clearance (Chem 54.47 [facility] Nucleated erythrocytes [Pres ence] in Blood by Automated countOrdered By: Eulogio Ruvalcaba on 03-03-2023 Nucleated RBC Auto Ql (Bld) 0.1 /100{WBC} 0-0.5 [facility] Platelet mean volume [Entiti c volume] in Blood by Automated countOrdered By: Eulogio Ruvalcaba on 03-03-2023 Platelet mean volume (Bld) [Entitic vol] 8.5 fL Normal 6.6-10.1 [facility] Comment on above: Performed By: #### C BC, CMP ####[place] [id number] [facility] Platelets [#/volume] in Bloo d by Automated countOrdered By: Eulogio Ruvalcaba on 03-03-2023 Platelets (Bld) [#/Vol] 324 10*3/uL Normal 150-450 [facility] Comment on above: Performed By: #### C BC, CMP ####[place] [id number] [facility] Potassium [Moles/volume] in Serum or PlasmaOrdered By: Eulogio Peg on 03-03-2023 Potassium [Moles/Vol] 4.6 mmol/L Normal 3.5-5.1 [facility] Comment on above: Performed By: #### C BC, CMP ####[address] Protein [Mass/volume] in Ser um or PlasmaOrdered By: Eulogio Peg on 03-03-2023 Protein [Mass/Vol] 5.7 g/dL Low 6.4-8.9 [facility] Comment on above: Performed By: #### C HIGINIO, CMP ####[address] Serum globulin measurement b y calculation (mass/volume)Ordered By: Eulogio Peg on 03-03-2023 Globulin (S) [Mass/Vol] 2.5 g/dL Normal [facility] Comment on above: Performed By: #### C HIGINIO, CMP ####[address] Serum or plasma albumin/glob ulin mass ratioOrdered By: Eulogio Peg on 03-03-2023 Albumin/Globulin [Mass ratio] 1.3 {ratio} [facility] Comment on above: Performed By: #### C HIGINIO, CMP ####[address] Serum or plasma anion gap de terminationOrdered By: Eulogio Peg on 03-03-2023 Anion gap [Moles/Vol] 9.4 mmol/L Normal 6.0-15.0 [facility] Comment on above: Performed By: #### C HIGINIO, CMP ####[place] [id number] [facility] Sodium [Moles/volume] in Ser um or PlasmaOrdered By: Eulogio Peg on 03-03-2023 Sodium [Moles/Vol] 139 mmol/L Normal 136-145 [facility] Comment on above: Performed By: #### C BC, CMP ####[place] [id number] [facility] Urea nitrogen [Mass/volume] in Serum or PlasmaOrdered By: Eulogio Ruvalcaba on 03-03-2023 Urea nitrogen [Mass/Vol] 23 mg/dL Normal 7-25 [facility] Comment on above: Performed By: #### C BC, CMP ####[address] Complete Blood Count Auto Di ffon 03-02-2023 Basophils (Bld) [#/Vol] 0.1 10*3/uL Normal 0.0-0.2 [facility] Comment on above: Result Comment: PERF ORMED BY:[address] [address] [place] [place], [place] [phone] MEDICAL DIRECTORJOSEPH GARCIA M.D. Performed By: #### C BC, CMP ####[address] Basophils/100 WBC (Bld) 0.7 % Normal . [facility] Comment on above: Performed By: #### C BC, CMP ####[address] Eosinophils (Bld) [#/Vol] 0.4 10*3/uL Normal 0.0-0.45 [facility] Comment on above: Performed By: #### C BC, CMP ####[address] Eosinophils/100 WBC (Bld) 3.0 % Normal . [facility] Comment on above: Performed By: #### C BC, CMP ####[address] Erythrocyte distribution width (RBC) [Ratio] 13.8 % Normal 12.0-14.8 [facility] Comment on above: Performed By: #### C BC, CMP ####[address] Hematocrit (Bld) [Volume fraction] 32.0 % Low 38.8-50.0 [facility] Comment on above: Performed By: #### C BC, CMP ####[address] Hemoglobin (Bld) [Mass/Vol] 10.8 g/dL Low 13.0-17.0 [facility] Comment on above: Performed By: #### C BC, CMP ####[address] Lymphocytes (Bld) [#/Vol] 2.7 10*3/uL Normal 1.00-4.8 [facility] Comment on above: Performed By: #### C BC, CMP ####[address] Lymphocytes/100 WBC (Bld) 22.8 % Normal . [facility] Comment on above: Performed By: #### C BC, CMP ####[address] MCH (RBC) [Entitic mass] 29.8 pg Normal 27.5-35.2 [facility] Comment on above: Performed By: #### C BC, CMP ####[address] MCV (RBC) [Entitic vol] 88.7 fL Normal 83.5-101 [facility] Comment on above: Performed By: #### C BC, CMP ####[address] Mean Corpuscular HGB Conc 33.6 g/dL Normal 32.5-35.6 [facility] Comment on above: Performed By: #### C BC, CMP ####[address] Monocytes (Bld) [#/Vol] 1.2 10*3/uL High 0.0-0.8 [facility] Comment on above: Performed By: #### C BC, CMP ####[address] Monocytes/100 WBC (Bld) 10.2 % Normal . [facility] Comment on above: Performed By: #### C BC, CMP ####[address] Neutrophils (Bld) [#/Vol] 7.6 10*3/uL Normal 1.8-7.7 [facility] Comment on above: Performed By: #### C BC, CMP ####[place] [id number] [facility] Neutrophils/100 WBC (Bld) 63.3 % Normal . [facility] Comment on above: Performed By: #### C BC, CMP ####[address] NRBC% 0.0 /100{WBC} Normal 0-0.5 [facility] Comment on above: Performed By: #### C BC, CMP ####[address] Platelet mean volume (Bld) [Entitic vol] 8.4 fL Normal 6.6-10.1 [facility] Comment on above: Performed By: #### C BC, CMP ####[place] [id number] [facility] Platelets (Bld) [#/Vol] 309 10*3/uL Normal 150-450 [facility] Comment on above: Performed By: #### C BC, CMP ####[place] [id number] [facility] RBC (Bld) [#/Vol] 3.61 10*6/uL Low 3.90-5.60 [facility] Comment on above: Performed By: #### C BC, CMP ####[place] [id number] [facility] WBC (Bld) [#/Vol] 12.0 10*3/uL High 4.1-10.5 [facility] Comment on above: Performed By: #### C BC, CMP ####[place] [id number] [facility] Comprehensive Metabolic Pane neil 03-02-2023 Albumin [Mass/Vol] 3.2 g/dL Low 3.5-5.7 [facility] Comment on above: Performed By: #### C BC, CMP ####[address] Albumin/Globulin [Mass ratio] 1.2 {ratio} Normal [facility] Comment on above: Performed By: #### C BC, CMP ####[address] ALP [Catalytic activity/Vol] 63 U/L Normal 34-104 [facility] Comment on above: Performed By: #### C BC, CMP ####[address] ALT [Catalytic activity/Vol] 12 U/L Normal 7-52 [facility] Comment on above: Performed By: #### C BC, CMP ####[address] Anion gap [Moles/Vol] 9.3 mmol/L Normal 6.0-15.0 [facility] Comment on above: Performed By: #### C BC, CMP ####[address] AST [Catalytic activity/Vol] 14 U/L Normal 13-39 [facility] Comment on above: Performed By: #### C BC, CMP ####[address] Bilirubin [Mass/Vol] 0.5 mg/dL Normal 0.3-1.0 [facility] Comment on above: Performed By: #### C BC, CMP ####[place] [id number] [facility] Calcium [Mass/Vol] 8.8 mg/dL Normal 8.6-10.3 [facility] Comment on above: Performed By: #### C BC, CMP ####[place] [id number] [facility] Chloride [Moles/Vol] 103 mmol/L Normal 98-107 [facility] Comment on above: Performed By: #### C BC, CMP ####[address] [address] [facility] CO2 [Moles/Vol] 30.6 mmol/L Normal 21.0-31.0 [facility] Comment on above: Performed By: #### C BC, CMP ####[address] [address] [facility] Creatinine [Mass/Vol] 1.34 mg/dL High 0.70-1.30 [facility] Comment on above: Performed By: #### C BC, CMP ####[place] [id number] [facility] Creatinine Clr Calc Pharmacy 56.10 Normal [facility] Comment on above: Result Comment: PERF ORMED BY:[address] [place], [place] [phone] MEDICAL DIRECTORJOSEPH GARCIA M.D. Performed By: #### C BC, CMP ####[place] [id number] [facility] GFR/1.73 sq M.predicted MDRD (S/P/Bld) [Vol rate/Area] 56.635 mL/min/{1.73_m2} Normal [facility] Comment on above: Performed By: #### C BC, CMP ####[place] [id number] [facility] Globulin (S) [Mass/Vol] 2.7 g/dL Normal [facility] Comment on above: Performed By: #### C BC, CMP ####[address] [address] [facility] Glucose [Mass/Vol] 85 mg/dL Normal 70-100 [facility] Comment on above: Result Comment: [place] Glucose Reference Range is dependent on time and content of last meal. Glucose of more than 200 mg/dL in a nonstressed, ambulatory subject supports the diagnosis of Diabetes Mellitus. ADA recommended reference range Performed By: #### C BC, CMP ####[address] [address] [facility] Potassium [Moles/Vol] 3.9 mmol/L Normal 3.5-5.1 [facility] Comment on above: Performed By: #### C BC, CMP ####[address] [address] [facility] Protein [Mass/Vol] 5.9 g/dL Low 6.4-8.9 [facility] Comment on above: Performed By: #### C BC, CMP ####[address] [address] [facility] Sodium [Moles/Vol] 139 mmol/L Normal 136-145 [facility] Comment on above: Performed By: #### C BC, CMP ####[place] [id number] [facility] Urea nitrogen [Mass/Vol] 20 mg/dL Normal 7-25 [facility] Comment on above: Performed By: #### C HIGINIO, CMP ####[address] [address] [facility] Glucose Poct Glucometerson 1 Glucose [Mass/Vol] 235 mg/dL Normal [facility] Comment on above: Result Comment: [facility] Glucose Reference Range is dependent on time and content of last meal. Glucose of more than 200 mg/dL in a nonstressed, ambulatory subject supports the diagnosis of Diabetes Mellitus.PERFORMED BY:[place] [address] [place] [place], [place] [phone] MEDICAL DIRECTORJOSEPH GARCIA M.D. Performed By: #### G LULS ####Point of Care testing, Commemt1 Glu2: Cleaned Meter Normal [facility] Comment on above: Result Comment: PERF ORMED BY:[address] [address] SHIV[address] NUÑ[place], [place] [phone] MEDICAL DIRECTORJOSEPH GARCIA M.D. Performed By: #### G LULS ####Point of Care testing, Glucose [Mass/Vol] 142 mg/dL Normal [facility] Comment on above: Result Comment: [place] Glucose Reference Range is dependent on time and content of last meal. Glucose of more than 200 mg/dL in a nonstressed, ambulatory subject supports the diagnosis of Diabetes Mellitus. Performed By: #### G LULS ####Point of Care testing, Glucose [Mass/Vol] 85 mg/dL Normal [facility] Comment on above: Result Comment: [place] Glucose Reference Range is dependent on time and content of last meal. Glucose of more than 200 mg/dL in a nonstressed, ambulatory subject supports the diagnosis of Diabetes Mellitus.PERFORMED BY:[address] [address] [place], [place] [phone] MEDICAL DIRECTORJOSEPH GARCIA M.D. Performed By: #### G LULS ####Point of Care testing, Commemt1 Glu2: Cleaned Meter Normal [facility] Comment on above: Result Comment: PERF ORMED BY:[address] [place], [place] [phone] MEDICAL SILVIA GARCIA M.D. Performed By: #### G LULS ####Point of Care testing, Glucose [Mass/Vol] 85 mg/dL Normal [facility] Comment on above: Result Comment: [place] Glucose Reference Range is dependent on time and content of last meal. Glucose of more than 200 mg/dL in a nonstressed, ambulatory subject supports the diagnosis of Diabetes Mellitus. Performed By: #### G LULS ####Point of Care testing, Glucose [Mass/Vol] 259 mg/dL Normal [facility] Comment on above: Result Comment: [place] Glucose Reference Range is dependent on time and content of last meal. Glucose of more than 200 mg/dL in a nonstressed, ambulatory subject supports the diagnosis of Diabetes Mellitus.PERFORMED BY:[address] [address] [address] ZAMANLUZ [place], [place] [phone] MEDICAL SILVIA GARCIA M.D. Performed By: #### G LULS ####Point of Care testing, Commemt1 Glu2: Cleaned Meter Normal [facility] Comment on above: Result Comment: PERF ORMED BY:[address] [place], [place] [phone] MEDICAL DIRECTORJOSEPH GARCIA M.D. Performed By: #### G VALERY ####Point of Care testing, Glucose [Mass/Vol] 96 mg/dL Normal [facility] Comment on above: Result Comment: [place] Glucose Reference Range is dependent on time and content of last meal. Glucose of more than 200 mg/dL in a nonstressed, ambulatory subject supports the diagnosis of Diabetes Mellitus. Performed By: #### G VALERY ####Point of Care testing, No Panel InformationOrdered By: Eulogio Ruvalcaba on 03-02-2023 Bedside Glucose Comment Glu2: cleaned meter [facility] Basic Metabolic Panelon Anion gap [Moles/Vol] 9.6 mmol/L Normal 6.0-15.0 [facility] Comment on above: Performed By: #### B MP, CBC ####[place] [id number] [facility] Calcium [Mass/Vol] 9.1 mg/dL Normal 8.6-10.3 [facility] Comment on above: Performed By: #### B MP, CBC ####[place] [id number] [facility] Chloride [Moles/Vol] 102 mmol/L Normal 98-107 [facility] Comment on above: Performed By: #### B MP, CBC ####[address] [address] [facility] CO2 [Moles/Vol] 30.1 mmol/L Normal 21.0-31.0 [facility] Comment on above: Performed By: #### B MP, CBC ####[place] [id number] [facility] Creatinine [Mass/Vol] 1.50 mg/dL High 0.70-1.30 [facility] Comment on above: Performed By: #### B MP, CBC ####[address] [address] [place] Creatinine Clr Calc Pharmacy 50.11 Normal [facility] Comment on above: Result Comment: PERF ORMED BY:[place] [address] [place] N[place], [place] [phone] MEDICAL DIRECTORJOSEPH GARCIA M.D. Performed By: #### B MP, CBC ####[place] [id number] [facility] GFR/1.73 sq M.predicted MDRD (S/P/Bld) [Vol rate/Area] 49.466 mL/min/{1.73_m2} Normal [facility] Comment on above: Performed By: #### B MP, CBC ####[place] [id number] [facility] Glucose [Mass/Vol] 109 mg/dL High 70-100 [facility] Comment on above: Result Comment: [place] Glucose Reference Range is dependent on time and content of last meal. Glucose of more than 200 mg/dL in a nonstressed, ambulatory subject supports the diagnosis of Diabetes Mellitus. ADA recommended reference range Performed By: #### B MP, CBC ####[place] [id number] [facility] Potassium [Moles/Vol] 3.7 mmol/L Normal 3.5-5.1 [facility] Comment on above: Performed By: #### B MP, CBC ####[place] [id number] [facility] Sodium [Moles/Vol] 138 mmol/L Normal 136-145 [facility] Comment on above: Performed By: #### B MP, CBC ####[address] [address] [facility] Urea nitrogen [Mass/Vol] 17 mg/dL Normal 7-25 [facility] Comment on above: Performed By: #### B MP, CBC ####[place] [id number] [facility] Complete Blood Count Auto Di ffon 03-01-2023 Basophils (Bld) [#/Vol] 0.1 10*3/uL Normal 0.0-0.2 [facility] Comment on above: Result Comment: PERF ORMED BY:[place] [address] [place]IV[address] N[place], [place] [phone] MEDICAL DIRECTORJOSEPH GARCIA M.D. Performed By: #### B MP, CBC ####[place] [id number] [facility] Basophils/100 WBC (Bld) 0.5 % Normal . [facility] Comment on above: Performed By: #### B MP, CBC ####[address] Eosinophils (Bld) [#/Vol] 0.2 10*3/uL Normal 0.0-0.45 [facility] Comment on above: Performed By: #### B MP, CBC ####[address] Eosinophils/100 WBC (Bld) 1.9 % Normal . [facility] Comment on above: Performed By: #### B MP, CBC ####[address] Erythrocyte distribution width (RBC) [Ratio] 13.8 % Normal 12.0-14.8 [facility] Comment on above: Performed By: #### B MP, CBC ####[place] [id number] [facility] Hematocrit (Bld) [Volume fraction] 33.6 % Low 38.8-50.0 [facility] Comment on above: Performed By: #### B MP, CBC ####[address] Hemoglobin (Bld) [Mass/Vol] 11.6 g/dL Low 13.0-17.0 [facility] Comment on above: Performed By: #### B MP, CBC ####[address] Lymphocytes (Bld) [#/Vol] 2.6 10*3/uL Normal 1.00-4.8 [facility] Comment on above: Performed By: #### B MP, CBC ####[address] Lymphocytes/100 WBC (Bld) 20.3 % Normal . [facility] Comment on above: Performed By: #### B MP, CBC ####[address] MCH (RBC) [Entitic mass] 30.2 pg Normal 27.5-35.2 [facility] Comment on above: Performed By: #### B MP, CBC ####[address] MCV (RBC) [Entitic vol] 87.4 fL Normal 83.5-101 [facility] Comment on above: Performed By: #### B MP, CBC ####[address] Mean Corpuscular HGB Conc 34.5 g/dL Normal 32.5-35.6 [facility] Comment on above: Performed By: #### B MP, CBC ####[address] Monocytes (Bld) [#/Vol] 1.0 10*3/uL High 0.0-0.8 [facility] Comment on above: Performed By: #### B MP, CBC ####[address] Monocytes/100 WBC (Bld) 7.8 % Normal . [facility] Comment on above: Performed By: #### B MP, CBC ####[address] Neutrophils (Bld) [#/Vol] 9.0 10*3/uL High 1.8-7.7 [facility] Comment on above: Performed By: #### B MP, CBC ####[address] Neutrophils/100 WBC (Bld) 69.5 % Normal . [facility] Comment on above: Performed By: #### B MP, CBC ####[address] [address] [facility] NRBC% 0.1 /100{WBC} Normal 0-0.5 [facility] Comment on above: Performed By: #### B MP, CBC ####[address] [address] [facility] Platelet mean volume (Bld) [Entitic vol] 8.6 fL Normal 6.6-10.1 [facility] Comment on above: Performed By: #### B MP, CBC ####[address] [address] [facility] Platelets (Bld) [#/Vol] 340 10*3/uL Normal 150-450 [facility] Comment on above: Performed By: #### B MP, CBC ####[address] [address] [facility] RBC (Bld) [#/Vol] 3.84 10*6/uL Low 3.90-5.60 [facility] Comment on above: Performed By: #### B MP, CBC ####[address] [address] [facility] WBC (Bld) [#/Vol] 13.0 10*3/uL High 4.1-10.5 [facility] Comment on above: Performed By: #### B MP, CBC ####[address] [address] [facility] Glucose Poct Glucometerson 1 Glucose [Mass/Vol] 232 mg/dL Normal [facility] Comment on above: Result Comment: [place] Glucose Reference Range is dependent on time and content of last meal. Glucose of more than 200 mg/dL in a nonstressed, ambulatory subject supports the diagnosis of Diabetes Mellitus.PERFORMED BY:[address] [place] [address] [address] LATamikoTracyLUZ [place], [place] [phone] MEDICAL SILVIA GARCIA M.D. Performed By: #### G LULS ####Point of Care testing, Commemt1 Glu2: Cleaned Meter Normal [facility] Comment on above: Result Comment: PERF ORMED BY:[address] [address] [address] [place], [place] [phone] MEDICAL DIRECTORJOSEPH GARCIA M.D. Performed By: #### G LULS ####Point of Care testing, Glucose [Mass/Vol] 134 mg/dL Normal [facility] Comment on above: Result Comment: [place] Glucose Reference Range is dependent on time and content of last meal. Glucose of more than 200 mg/dL in a nonstressed, ambulatory subject supports the diagnosis of Diabetes Mellitus. Performed By: #### G LULS ####Point of Care testing, Glucose [Mass/Vol] 152 mg/dL Normal [facility] Comment on above: Result Comment: [place] Glucose Reference Range is dependent on time and content of last meal. Glucose of more than 200 mg/dL in a nonstressed, ambulatory subject supports the diagnosis of Diabetes Mellitus.PERFORMED BY:[address]YAT[address]LUZ [place], [place] [phone] MEDICAL DIRECTORJOSEPH GARCIA M.D. Performed By: #### G LULS ####Point of Care testing, Glucose [Mass/Vol] 62 mg/dL Normal [facility] Comment on above: Result Comment: [place] Glucose Reference Range is dependent on time and content of last meal. Glucose of more than 200 mg/dL in a nonstressed, ambulatory subject supports the diagnosis of Diabetes Mellitus.PERFORMED BY:[place] [address] [address] [place]AMANLUZ [place], [place] [phone] MEDICAL DIRECTORJOSEPH GARCIA M.D. Performed By: #### G LULS ####Point of Care testing, Commemt1 Glu2: Cleaned Meter Normal [facility] Comment on above: Result Comment: PERF ORMED BY:[place] [address] [address] [place]ANLUZ [place], [place] [phone] MEDICAL ISLVIA GARCIA M.D. Performed By: #### G LULS ####Point of Care testing, Glucose [Mass/Vol] 263 mg/dL Normal [facility] Comment on above: Result Comment: [place] Glucose Reference Range is dependent on time and content of last meal. Glucose of more than 200 mg/dL in a nonstressed, ambulatory subject supports the diagnosis of Diabetes Mellitus. Performed By: #### G LULS ####Point of Care testing, Commemt1 Glu2: Cleaned Meter Normal [facility] Comment on above: Result Comment: PERF ORMED BY:[address] [place], [place] [phone] MEDICAL DIRECTORJOSEPH GARCIA M.D. Performed By: #### G LULS ####Point of Care testing, Glucose [Mass/Vol] 103 mg/dL Normal [facility] Comment on above: Result Comment: [place] Glucose Reference Range is dependent on time and content of last meal. Glucose of more than 200 mg/dL in a nonstressed, ambulatory subject supports the diagnosis of Diabetes Mellitus. Performed By: #### G LULS ####Point of Care testing, Basic Metabolic Panelon 10-0 Anion gap [Moles/Vol] 8.6 mmol/L Normal 6.0-15.0 [facility] Comment on above: Performed By: #### C BC, BMP ####[address] [address] [facility] Calcium [Mass/Vol] 8.7 mg/dL Normal 8.6-10.3 [facility] Comment on above: Performed By: #### C BC, BMP ####[address] [address] [facility] Chloride [Moles/Vol] 103 mmol/L Normal 98-107 [facility] Comment on above: Performed By: #### C BC, BMP ####[address] [address] [facility] CO2 [Moles/Vol] 31.5 mmol/L High 21.0-31.0 [facility] Comment on above: Performed By: #### C BC, BMP ####[address] [address] [place] Creatinine [Mass/Vol] 1.73 mg/dL High 0.70-1.30 [facility] Comment on above: Performed By: #### C BC, BMP ####[place] [address] [place] [address] [facility] Creatinine Clr Calc Pharmacy 43.12 Normal [facility] Comment on above: Result Comment: PERF ORMED BY:[address] SHALINITracyLUZ [place], [place] [phone] MEDICAL SILVIA GARCIA M.D. Performed By: #### C HIGINIO, BMP ####[place] [address] [place] [address] [facility] GFR/1.73 sq M.predicted MDRD (S/P/Bld) [Vol rate/Area] 41.682 mL/min/{1.73_m2} Normal [facility] Comment on above: Performed By: #### C HIGINIO, BMP ####[place] [id number] [facility] Glucose [Mass/Vol] 99 mg/dL Normal 70-100 [facility] Comment on above: Result Comment: [place] Glucose Reference Range is dependent on time and content of last meal. Glucose of more than 200 mg/dL in a nonstressed, ambulatory subject supports the diagnosis of Diabetes Mellitus. ADA recommended reference range Performed By: #### C HIGINIO, BMP ####[address] [address] [facility] Potassium [Moles/Vol] 4.1 mmol/L Normal 3.5-5.1 [facility] Comment on above: Performed By: #### C BC, BMP ####[address] [address] [facility] Sodium [Moles/Vol] 139 mmol/L Normal 136-145 [facility] Comment on above: Performed By: #### C BC, BMP ####[address] [address] [facility] Urea nitrogen [Mass/Vol] 17 mg/dL Normal 7-25 [facility] Comment on above: Performed By: #### C BC, BMP ####[address] [address] [facility] Complete Blood Count Auto Di ffon 02-28-2023 Basophils (Bld) [#/Vol] 0.1 10*3/uL Normal 0.0-0.2 [facility] Comment on above: Result Comment: PERF ORMED BY:[address] [place], [place] [phone] MEDICAL DIRECTORJOSEPH GARCIA M.D. Performed By: #### C BC, BMP ####[place] [id number] [facility] Basophils/100 WBC (Bld) 0.6 % Normal . [facility] Comment on above: Performed By: #### C BC, BMP ####[address] [address] [facility] Eosinophils (Bld) [#/Vol] 0.4 10*3/uL Normal 0.0-0.45 [facility] Comment on above: Performed By: #### C BC, BMP ####[place] [id number] [facility] Eosinophils/100 WBC (Bld) 2.8 % Normal . [facility] Comment on above: Performed By: #### C BC, BMP ####[place] [address] [facility] Erythrocyte distribution width (RBC) [Ratio] 13.9 % Normal 12.0-14.8 [facility] Comment on above: Performed By: #### C BC, BMP ####[place] [address] [facility] Hematocrit (Bld) [Volume fraction] 31.9 % Low 38.8-50.0 [facility] Comment on above: Performed By: #### C BC, BMP ####[place] [address] [facility] Hemoglobin (Bld) [Mass/Vol] 10.8 g/dL Low 13.0-17.0 [facility] Comment on above: Performed By: #### C BC, BMP ####[place] [address] [facility] Lymphocytes (Bld) [#/Vol] 2.5 10*3/uL Normal 1.00-4.8 [facility] Comment on above: Performed By: #### C BC, BMP ####[place] [address] [facility] Lymphocytes/100 WBC (Bld) 20.0 % Normal . [facility] Comment on above: Performed By: #### C BC, BMP ####[place] [address] [facility] MCH (RBC) [Entitic mass] 30.0 pg Normal 27.5-35.2 [facility] Comment on above: Performed By: #### C BC, BMP ####[place] [address] [facility] MCV (RBC) [Entitic vol] 88.7 fL Normal 83.5-101 [facility] Comment on above: Performed By: #### C HIGINIO, BMP ####[place] [address] [facility] Mean Corpuscular HGB Conc 33.8 g/dL Normal 32.5-35.6 [facility] Comment on above: Performed By: #### C BC, BMP ####[place] [address] [facility] Monocytes (Bld) [#/Vol] 1.4 10*3/uL High 0.0-0.8 [facility] Comment on above: Performed By: #### C BC, BMP ####[place] [address] [facility] Monocytes/100 WBC (Bld) 10.7 % Normal . [facility] Comment on above: Performed By: #### C BC, BMP ####[place] [address] [facility] Neutrophils (Bld) [#/Vol] 8.4 10*3/uL High 1.8-7.7 [facility] Comment on above: Performed By: #### C BC, BMP ####[address] [address] [facility] Neutrophils/100 WBC (Bld) 65.9 % Normal . [facility] Comment on above: Performed By: #### C BC, BMP ####[address] [address] [facility] NRBC% 0.0 /100{WBC} Normal 0-0.5 [facility] Comment on above: Performed By: #### C BC, BMP ####[address] [address] [facility] Platelet mean volume (Bld) [Entitic vol] 8.4 fL Normal 6.6-10.1 [facility] Comment on above: Performed By: #### C BC, BMP ####[address] [address] [facility] Platelets (Bld) [#/Vol] 284 10*3/uL Normal 150-450 [facility] Comment on above: Performed By: #### C BC, BMP ####[address] [address] [facility] RBC (Bld) [#/Vol] 3.59 10*6/uL Low 3.90-5.60 [facility] Comment on above: Performed By: #### C BC, BMP ####[address] [address] [facility] WBC (Bld) [#/Vol] 12.7 10*3/uL High 4.1-10.5 [facility] Comment on above: Performed By: #### C BC, BMP ####[address] [address] [facility] Glucose Poct Glucometerson 1 Glucose [Mass/Vol] 158 mg/dL Normal [facility] Comment on above: Result Comment: [place] Glucose Reference Range is dependent on time and content of last meal. Glucose of more than 200 mg/dL in a nonstressed, ambulatory subject supports the diagnosis of Diabetes Mellitus.PERFORMED BY:[address] [address] [address] [place]AM[place] [place], [place] [phone] MEDICAL DIRECTORJOSEPH GARCIA M.D. Performed By: #### G LULS ####Point of Care testing, Glucose [Mass/Vol] 188 mg/dL Normal [facility] Comment on above: Result Comment: [place] Glucose Reference Range is dependent on time and content of last meal. Glucose of more than 200 mg/dL in a nonstressed, ambulatory subject supports the diagnosis of Diabetes Mellitus.PERFORMED BY:[address] [place], [place] [phone] MEDICAL DIRECTORJOSEPH GARCIA M.D. Performed By: #### G LULS ####Point of Care testing, Glucose [Mass/Vol] 184 mg/dL Normal [facility] Comment on above: Result Comment: [facility] Glucose Reference Range is dependent on time and content of last meal. Glucose of more than 200 mg/dL in a nonstressed, ambulatory subject supports the diagnosis of Diabetes Mellitus.PERFORMED BY:[address] [place], [place] [phone] MEDICAL DIRECTORJOSEPH GARCIA M.D. Performed By: #### G LULS ####Point of Care testing, Glucose [Mass/Vol] 101 mg/dL Normal [facility] Comment on above: Result Comment: [facility] Glucose Reference Range is dependent on time and content of last meal. Glucose of more than 200 mg/dL in a nonstressed, ambulatory subject supports the diagnosis of Diabetes Mellitus.PERFORMED BY:[address] [place], [place] [phone] MEDICAL DIRECTORJOSEPH GARCIA M.D. Performed By: #### G LULS ####Point of Care testing, Basic Metabolic Panelon 10-0 Anion gap [Moles/Vol] 10.0 mmol/L Normal 6.0-15.0 Th e [facility] Comment on above: Performed By: #### M G, CBC, BMP ####[address] [address] [facility] Calcium [Mass/Vol] 8.1 mg/dL Low 8.6-10.3 [facility] Comment on above: Performed By: #### M Demar CBC, BMP ####[address] Chloride [Moles/Vol] 103 mmol/L Normal 98-107 [facility] Comment on above: Performed By: #### M Demar, CBC, BMP ####[address] CO2 [Moles/Vol] 29.0 mmol/L Normal 21.0-31.0 [facility] Comment on above: Performed By: #### M Demar CBC, BMP ####[address] Creatinine [Mass/Vol] 1.53 mg/dL High 0.70-1.30 The [facility] [facility] Comment on above: Performed By: #### Zeb Benz CBC, BMP ####[address] Creatinine Clr Calc Pharmacy 48.43 Normal [facility] Comment on above: Performed By: #### M Demar CBC, BMP ####[address] GFR/1.73 sq M.predicted MDRD (S/P/Bld) [Vol rate/Area] 48.304 mL/min/{1.73_m2} Normal The [facility] Comment on above: Performed By: #### M Demar CBC, BMP ####[address] Glucose [Mass/Vol] 93 mg/dL Normal 70-100 The [facility] Comment on above: Result Comment: [place] Glucose Reference Range is dependent on time and content of last meal. Glucose of more than 200 mg/dL in a nonstressed, ambulatory subject supports the diagnosis of Diabetes Mellitus. ADA recommended reference range Performed By: #### M G, CBC, BMP ####[address] Potassium [Moles/Vol] 4.0 mmol/L Normal 3.5-5.1 [facility] Comment on above: Performed By: #### M G, CBC, BMP ####[address] Sodium [Moles/Vol] 138 mmol/L Normal 136-145 [facility] Comment on above: Performed By: #### M G, CBC, BMP ####[address] Urea nitrogen [Mass/Vol] 16 mg/dL Normal 7-25 [facility] Comment on above: Performed By: #### M G, CBC, BMP ####[address] Complete Blood Count Auto Di ffon 02-27-2023 Basophils (Bld) [#/Vol] 0.1 10*3/uL Normal 0.0-0.2 [facility] Comment on above: Result Comment: PERF ORMED BY:[address] [place], [place] [id number] MEDICAL DIRECTORJOSEPH GARCIA M.D. Performed By: #### M G, CBC, BMP ####[address] Basophils/100 WBC (Bld) 0.6 % Normal . [facility] Comment on above: Performed By: #### M G, CBC, BMP ####[address] Eosinophils (Bld) [#/Vol] 0.2 10*3/uL Normal 0.0-0.45 [facility] Comment on above: Performed By: #### M G, CBC, BMP ####[address] Eosinophils/100 WBC (Bld) 1.3 % Normal . [facility] Comment on above: Performed By: #### M G, CBC, BMP ####[address] Erythrocyte distribution width (RBC) [Ratio] 14.0 % Normal 12.0-14.8 [facility] Comment on above: Performed By: #### M Demar, CBC, BMP ####[address] Hematocrit (Bld) [Volume fraction] 31.5 % Low 38.8-50.0 [facility] Comment on above: Performed By: #### M G, CBC, BMP ####[address] Hemoglobin (Bld) [Mass/Vol] 10.7 g/dL Low 13.0-17.0 [facility] Comment on above: Performed By: #### Zeb Benz, CBC, BMP ####[address] Lymphocytes (Bld) [#/Vol] 2.8 10*3/uL Normal 1.00-4.8 [facility] Comment on above: Performed By: #### Zeb Benz, CBC, BMP ####[address] Lymphocytes/100 WBC (Bld) 20.1 % Normal . [facility] Comment on above: Performed By: #### Zeb Benz, CBC, BMP ####[address] MCH (RBC) [Entitic mass] 29.9 pg Normal 27.5-35.2 [facility] Comment on above: Performed By: #### M Demar, CBC, BMP ####[address] MCV (RBC) [Entitic vol] 87.8 fL Normal 83.5-101 [facility] Comment on above: Performed By: #### M G, CBC, BMP ####[address] Mean Corpuscular HGB Conc 34.1 g/dL Normal 32.5-35.6 [facility] Comment on above: Performed By: #### Zeb G, CBC, BMP ####[address] [place] [address] [facility] Monocytes (Bld) [#/Vol] 1.5 10*3/uL High 0.0-0.8 [facility] Comment on above: Performed By: #### M G, CBC, BMP ####[address] [address] [facility] Monocytes/100 WBC (Bld) 10.6 % Normal . [facility] Comment on above: Performed By: #### M G, CBC, BMP ####[id number] [facility] Neutrophils (Bld) [#/Vol] 9.4 10*3/uL High 1.8-7.7 [facility] Comment on above: Performed By: #### M G, CBC, BMP ####[id number] [facility] Neutrophils/100 WBC (Bld) 67.4 % Normal . [facility] Comment on above: Performed By: #### M G, CBC, BMP ####[id number] [facility] NRBC% 0.1 /100{WBC} Normal 0-0.5 The [facility] Comment on above: Performed By: #### M G, CBC, BMP ####[id number] [facility] Platelet mean volume (Bld) [Entitic vol] 8.5 fL Normal 6.6-10.1 The [facility] Comment on above: Performed By: #### M G, CBC, BMP ####[address] [address] [facility] Platelets (Bld) [#/Vol] 277 10*3/uL Normal 150-450 [facility] Comment on above: Performed By: #### M G, CBC, BMP ####[address] [address] [facility] RBC (Bld) [#/Vol] 3.59 10*6/uL Low 3.90-5.60 [facility] Comment on above: Performed By: #### M G, CBC, BMP ####[address] WBC (Bld) [#/Vol] 13.9 10*3/uL High 4.1-10.5 [facility] Comment on above: Performed By: #### M G, CBC, BMP ####[id number] [facility] Creatinineon 02-27-2023 Creatinine [Mass/Vol] 1.65 mg/dL High 0.70-1.30 [facility] Comment on above: Performed By: #### C REAT ####[address] Creatinine Clr Calc Pharmacy 45.05 Normal [facility] Comment on above: Result Comment: PERF ORMED BY:[address] [address] [address] [place], [place] [phone] MEDICAL DIRECTORJOSEPH GARCIA M.D. Performed By: #### C REAT ####[id number] [facility] GFR/1.73 sq M.predicted MDRD (S/P/Bld) [Vol rate/Area] 44.119 mL/min/{1.73_m2} Normal The [facility] Comment on above: Performed By: #### C REAT ####[id number] [facility] Glucose Poct Glucometerson 1 Commemt1 Glu2: Cleaned Meter Normal [facility] Comment on above: Result Comment: PERF ORMED BY:[address] [place], [place] [phone] MEDICAL DIRECTORJOSEPH GARCIA M.D. Performed By: #### G LULS ####Point of Care testing, Glucose [Mass/Vol] 216 mg/dL Normal [facility] Comment on above: Result Comment: [place] Glucose Reference Range is dependent on time and content of last meal. Glucose of more than 200 mg/dL in a nonstressed, ambulatory subject supports the diagnosis of Diabetes Mellitus. Performed By: #### G LULS ####Point of Care testing, Glucose [Mass/Vol] 200 mg/dL Normal [facility] Comment on above: Result Comment: [place] om Glucose Reference Range is dependent on time and content of last meal. Glucose of more than 200 mg/dL in a nonstressed, ambulatory subject supports the diagnosis of Diabetes Mellitus.PERFORMED BY:[address] [address] [address] NUÑ[place]ST[place], [place] [phone] MEDICAL DIRECTORJOSEPH GARCIA M.D. Performed By: #### G LULS ####Point of Care testing, Glucose [Mass/Vol] 224 mg/dL Normal [facility] Comment on above: Result Comment: [place] Glucose Reference Range is dependent on time and content of last meal. Glucose of more than 200 mg/dL in a nonstressed, ambulatory subject supports the diagnosis of Diabetes Mellitus.PERFORMED BY:[address] [address] SHIV[address] NUÑEZBOYLSTON, [place] [phone] MEDICAL DIRECTORJOSEPH GARCIA M.D. Performed By: #### G LULS ####Point of Care testing, Glucose [Mass/Vol] 114 mg/dL Normal [facility] Comment on above: Result Comment: [facility] Glucose Reference Range is dependent on time and content of last meal. Glucose of more than 200 mg/dL in a nonstressed, ambulatory subject supports the diagnosis of Diabetes Mellitus.PERFORMED BY:[address] [address] [address] NUÑE[place]BOYLST[place], [place] [phone] MEDICAL DIRECTORJOSEPH GARCIA M.D. Performed By: #### G LULS ####Point of Care testing, Magnesium [Mass/volume] in S rene or PlasmaOrdered By: Geo Thomas on 02-27-2023 Magnesium [Mass/Vol] 1.7 mg/dL Low 1.9-2.7 [facility] Comment on above: Result Comment: PERF ORMED BY:[address] [address] [address] NUÑE[place]BO[place]ST[place], [place] [phone] MEDICAL DIRECTORJOSEPH GARCIA M.D. Performed By: #### M G, CBC, BMP ####[address] [place] [address] [facility] Serum or plasma trough vanco mycin levelOrdered By: Brennan Cerrato on 02-27-2023 Vancomycin trough [Mass/Vol] 21.5 ug/mL 10.0-20.0 [facility] Comment on above: Last dose: - Vancomycin [Mass/volume] in Serum or PlasmaOrdered By: Brennan Cerrato on 02-27-2023 Vancomycin [Mass/Vol] 14.2 ug/mL 5.0-20.0 [facility] Comment on above: Last dose: - Vancomycin,Randomon 02-28-20 23 Vancomycin,Random 14.2 ug/mL Normal 5.0-20.0 The [facility] Comment on above: Order Comment: Date of last dose?: 20230226 Time of last dose?: 1600 Result Comment: Last dose: -PERFORMED BY:[address] [address] [address] LATamikoTracyLUZ [place], [place] [phone] MEDICAL DIRECTORJOSEPH GARCIA M.D. Performed By: #### V ANCR ####[address] [place] [address] [facility] Vancomycin,Random 19.5 ug/mL Normal 5.0-20.0 The [facility] Comment on above: Order Comment: Date of last dose?: 20230226 Time of last dose?: 1600 Result Comment: Last dose: -PERFORMED BY:[address] [address] [address] LATamikoTracyLUZ [place], [place] [phone] MEDICAL DIRECTORJOSEPH GARCIA M.D. Performed By: #### V ANCR ####[address] [place] [address] [facility] Vancomycin,Troughon 02-28-20 23 Vancomycin,Trough 21.5 ug/mL High 10.0-20.0 The [facility] Comment on above: Order Comment: Time of next dose? 0300 Date of last dose?: 20230226 Time of last dose?: 1500 Result Comment: Last dose: -PERFORMED BY:[address] [address] [address] NUÑE[place]BO[place]ST[place], [place] [phone] MEDICAL DIRECTORJOSEPH GARCIA M.D. Performed By: #### V ANCT ####[address] [place] [address] [facility] A1C with Estimated Average G luon 02-26-2023 Glucose [Mass/Vol] 160 mg/dL Normal [facility] Comment on above: Result Comment: PERF ORMED BY:[address] [address] [address] NUÑ[place]ST[place], [place] [phone] MEDICAL DIRECTORJOSEPH GARCIA M.D. Performed By: #### P T, CMP, PTT, LIPID, PAB, CBC, A1C WTH eA ####[address] [place] [address] [facility] Activated partial thrombopla stin time (aPTT) in platelet poor plasma by coagulation aOrdered By: Geo Thomas on 02-26-2023 aPTT Coag (PPP) [Time] 31.6 s 25.1-36.5 [facility] Comment on above: A hematocrit value g reater than 55% may lead to inaccurate results in coagulation testing. Patients having hematocrit values >55% require a special collection tube for coagulation studies. Please contact the laboratory at [phone] for redraw instructions. Aerobic Cultureon 02-26-2023 Aerobic Culture Normal [facility] Comment on above: Performed By: #### G S, AERC ####[address] [place] [address] [facility] Anaerobic cultureOrdered By: Rohan Han on 02-26-2023 Bacteria identified Anaer cx Nom (Unsp spec) No Anaerobes Isolated 3 Days [facility] Bacteria identified Anaer cx Nom (Unsp spec) No Anaerobes Isolated 3 Days [facility] Bacteria identified Aer cx N om (Unsp spec)Ordered By: Rohan Han on 02-26-2023 Aerobic Culture Pseudomonas aerugino sa (MDRO) [facility] Aerobic Culture Pseudomonas aerugino sa (MDRO) [facility] Cholesterol [Mass/volume] in Serum or PlasmaOrdered By: Geo Thomas on 02-26-2023 Cholesterol [Mass/Vol] 92 mg/dL Low 140-200 [facility] Comment on above: Chol less than 200 m g/dl low riskChol 201-239 mg/dl borderline riskChol 240 mg/dl and greater high risk Order Comment: FASTI NG N Result Comment: Chol less than 200 mg/dl low risk Chol 201-239 mg/dl borderline risk Chol 240 mg/dl and greater high risk Performed By: #### P T, CMP, PTT, LIPID, PAB, CBC, A1C WT eA ####[facility] [id number] [place] [address] [facility] Cholesterol in LDL Calc [Mas s/Vol]Ordered By: Geo Thomas on 02-26-2023 Cholesterol in LDL [Mass/Vol] 39 mg/dL 0-100 [facility] Comment on above: LDL ATP III CLASSIFI CATIONLDL less than 100 mg/dL OptimalLDL 100-129 mg/dL Near or above optimalLDL 130-159 mg/dL Borderline highLDL 160-189 mg/dL HighLDL greater than 189 mg/dL Very high Cholesterol in VLDL Calc [Ma ss/Vol]Ordered By: Geo Thomas on 02-26-2023 Cholesterol in VLDL [Mass/Vol] 29 mg/dL [facility] Complete Blood Count Auto Di ffon 02-26-2023 Basophils (Bld) [#/Vol] 0.1 10*3/uL Normal 0.0-0.2 [facility] Comment on above: Result Comment: PERF ORMED BY:[facility] [place], [place] [phone] MEDICAL DIRECTORJOSEPH GARCIA M.D. Performed By: #### P T, CMP, PTT, LIPID, PAB, CBC, A1C WT eA ####[facility] [place] [address] [facility] Basophils/100 WBC (Bld) 0.8 % Normal . [facility] Comment on above: Performed By: #### P T, CMP, PTT, LIPID, PAB, CBC, A1C WTH eA ####[address] Eosinophils (Bld) [#/Vol] 0.2 10*3/uL Normal 0.0-0.45 [facility] Comment on above: Performed By: #### P T, CMP, PTT, LIPID, PAB, CBC, A1C WTH eA ####[address] Eosinophils/100 WBC (Bld) 1.7 % Normal . [facility] Comment on above: Performed By: #### P T, CMP, PTT, LIPID, PAB, CBC, A1C WTH eA ####[address] Erythrocyte distribution width (RBC) [Ratio] 13.7 % Normal 12.0-14.8 [facility] Comment on above: Performed By: #### P T, CMP, PTT, LIPID, PAB, CBC, A1C WTH eA ####[address] Hematocrit (Bld) [Volume fraction] 38.3 % Low 38.8-50.0 [facility] Comment on above: Performed By: #### P T, CMP, PTT, LIPID, PAB, CBC, A1C WTH eA ####[address] Hemoglobin (Bld) [Mass/Vol] 13.0 g/dL Normal 13.0-17.0 [facility] Comment on above: Performed By: #### P T, CMP, PTT, LIPID, PAB, CBC, A1C WTH eA ####[address] Lymphocytes (Bld) [#/Vol] 1.9 10*3/uL Normal 1.00-4.8 [facility] Comment on above: Performed By: #### P T, CMP, PTT, LIPID, PAB, CBC, A1C WTH eA ####[address] Lymphocytes/100 WBC (Bld) 15.0 % Normal . [facility] Comment on above: Performed By: #### P T, CMP, PTT, LIPID, PAB, CBC, A1C WTH eA ####[address] MCH (RBC) [Entitic mass] 29.9 pg Normal 27.5-35.2 [facility] Comment on above: Performed By: #### P T, CMP, PTT, LIPID, PAB, CBC, A1C WTH eA ####[address] MCV (RBC) [Entitic vol] 88.0 fL Normal 83.5-101 [facility] Comment on above: Performed By: #### P T, CMP, PTT, LIPID, PAB, CBC, A1C WTH eA ####[address] Mean Corpuscular HGB Conc 34.0 g/dL Normal 32.5-35.6 [facility] Comment on above: Performed By: #### P T, CMP, PTT, LIPID, PAB, CBC, A1C WTH eA ####[address] Monocytes (Bld) [#/Vol] 1.4 10*3/uL High 0.0-0.8 [facility] Comment on above: Performed By: #### P T, CMP, PTT, LIPID, PAB, CBC, A1C WTH eA ####[address] Monocytes/100 WBC (Bld) 10.9 % Normal . [facility] Comment on above: Performed By: #### P T, CMP, PTT, LIPID, PAB, CBC, A1C WTH eA ####[address] Neutrophils (Bld) [#/Vol] 9.1 10*3/uL High 1.8-7.7 [facility] Comment on above: Performed By: #### P T, CMP, PTT, LIPID, PAB, CBC, A1C WTH eA ####[id number] [facility] Neutrophils/100 WBC (Bld) 71.6 % Normal . [facility] Comment on above: Performed By: #### P T, CMP, PTT, LIPID, PAB, CBC, A1C WTH eA ####[address] NRBC% 0.0 /100{WBC} Normal 0-0.5 [facility] Comment on above: Performed By: #### P T, CMP, PTT, LIPID, PAB, CBC, A1C WTH eA ####[id number] [facility] Platelet mean volume (Bld) [Entitic vol] 8.6 fL Normal 6.6-10.1 [facility] Comment on above: Performed By: #### P T, CMP, PTT, LIPID, PAB, CBC, A1C WTH eA ####[address] Platelets (Bld) [#/Vol] 298 10*3/uL Normal 150-450 [facility] Comment on above: Performed By: #### P T, CMP, PTT, LIPID, PAB, CBC, A1C WTH eA ####[address] RBC (Bld) [#/Vol] 4.36 10*6/uL Normal 3.90-5.60 [facility] Comment on above: Performed By: #### P T, CMP, PTT, LIPID, PAB, CBC, A1C WTH eA ####[address] WBC (Bld) [#/Vol] 12.7 10*3/uL High 4.1-10.5 [facility] Comment on above: Performed By: #### P T, CMP, PTT, LIPID, PAB, CBC, A1C WTH eA ####[id number] [facility] Comprehensive Metabolic Pane neil 02-26-2023 Albumin [Mass/Vol] 3.0 g/dL Low 3.5-5.7 [facility] Comment on above: Order Comment: FASTI NG N Performed By: #### P T, CMP, PTT, LIPID, PAB, CBC, A1C WTH eA ####[id number] [facility] Albumin/Globulin [Mass ratio] 1.1 {ratio} Normal [facility] Comment on above: Order Comment: FASTI NG N Performed By: #### P T, CMP, PTT, LIPID, PAB, CBC, A1C WTH eA ####[id number] [facility] ALP [Catalytic activity/Vol] 75 U/L Normal 34-104 [facility] Comment on above: Order Comment: FASTI NG N Performed By: #### P T, CMP, PTT, LIPID, PAB, CBC, A1C WTH eA ####[address] ALT [Catalytic activity/Vol] 14 U/L Normal 7-52 [facility] Comment on above: Order Comment: FASTI NG N Performed By: #### P T, CMP, PTT, LIPID, PAB, CBC, A1C WT eA ####[id number] [facility] Anion gap [Moles/Vol] 11.1 mmol/L Normal 6.0-15.0 [facility] Comment on above: Order Comment: FASTI NG N Performed By: #### P T, CMP, PTT, LIPID, PAB, CBC, A1C WT eA ####[id number] [facility] AST [Catalytic activity/Vol] 15 U/L Normal 13-39 [facility] Comment on above: Order Comment: FASTI NG N Performed By: #### P T, CMP, PTT, LIPID, PAB, CBC, A1C WTH eA ####[id number] [facility] Bilirubin [Mass/Vol] 1.0 mg/dL Normal 0.3-1.0 [facility] Comment on above: Order Comment: FASTI NG N Performed By: #### P T, CMP, PTT, LIPID, PAB, CBC, A1C WTH eA ####[address] Calcium [Mass/Vol] 8.3 mg/dL Low 8.6-10.3 [facility] Comment on above: Order Comment: FASTI NG N Performed By: #### P T, CMP, PTT, LIPID, PAB, CBC, A1C WTH eA ####[address] Chloride [Moles/Vol] 104 mmol/L Normal 98-107 [facility] Comment on above: Order Comment: FASTI NG N Performed By: #### P T, CMP, PTT, LIPID, PAB, CBC, A1C WTH eA ####[address] CO2 [Moles/Vol] 26.7 mmol/L Normal 21.0-31.0 [facility] Comment on above: Order Comment: FASTI NG N Performed By: #### P T, CMP, PTT, LIPID, PAB, CBC, A1C WT eA ####[address] Creatinine [Mass/Vol] 1.14 mg/dL Significan t change down 0.70-1.30 [facility] Comment on above: Order Comment: FASTI NG N Performed By: #### P T, CMP, PTT, LIPID, PAB, CBC, A1C WTH eA ####[address] Creatinine Clr Calc Pharmacy 65.00 Normal [facility] Comment on above: Order Comment: FASTI NG N Performed By: #### P T, CMP, PTT, LIPID, PAB, CBC, A1C WT eA ####[address] GFR/1.73 sq M.predicted MDRD (S/P/Bld) [Vol rate/Area] mL/min/{1.73_m2} Normal [facility] Comment on above: Order Comment: FASTI NG N Performed By: #### P T, CMP, PTT, LIPID, PAB, CBC, A1C WTH eA ####[id number] [facility] Globulin (S) [Mass/Vol] 2.7 g/dL Normal [facility] Comment on above: Order Comment: FASTI NG N Performed By: #### P T, CMP, PTT, LIPID, PAB, CBC, A1C WTH eA ####[address] Glucose [Mass/Vol] 123 mg/dL High 70-100 [facility] Comment on above: Order Comment: FASTI NG N Result Comment: [place] Glucose Reference Range is dependent on time and content of last meal. Glucose of more than 200 mg/dL in a nonstressed, ambulatory subject supports the diagnosis of Diabetes Mellitus. ADA recommended reference range Performed By: #### P T, CMP, PTT, LIPID, PAB, CBC, A1C WTH eA ####[address] Potassium [Moles/Vol] 3.8 mmol/L Normal 3.5-5.1 [facility] Comment on above: Order Comment: FASTI NG N Performed By: #### P T, CMP, PTT, LIPID, PAB, CBC, A1C WTH eA ####[address] Protein [Mass/Vol] 5.7 g/dL Low 6.4-8.9 [facility] Comment on above: Order Comment: FASTI NG N Performed By: #### P T, CMP, PTT, LIPID, PAB, CBC, A1C WTH eA ####[id number] [facility] Sodium [Moles/Vol] 138 mmol/L Normal 136-145 [facility] Comment on above: Order Comment: FASTI NG N Performed By: #### P T, CMP, PTT, LIPID, PAB, CBC, A1C WTH eA ####[address] Urea nitrogen [Mass/Vol] 13 mg/dL Normal 7-25 [facility] Comment on above: Order Comment: FASTI NG N Performed By: #### P T, CMP, PTT, LIPID, PAB, CBC, [facility] ####[address] [place] [address] [facility] ECG 12 lead ECGon 02-26-2023 ECG 12 lead ECG Normal [facility] Glucose Poct Glucometerson 1 Glucose [Mass/Vol] 224 mg/dL Normal [facility] Comment on above: Result Comment: [place] Glucose Reference Range is dependent on time and content of last meal. Glucose of more than 200 mg/dL in a nonstressed, ambulatory subject supports the diagnosis of Diabetes Mellitus.PERFORMED BY:[address] [address] [address]LU[address] [place], [place] [phone] MEDICAL DIRECTORJOSEPH GARCIA M.D. Performed By: #### G LULS ####Point of Care testing, Commemt1 Glu2: Cleaned Meter Normal [facility] Comment on above: Result Comment: PERF ORMED BY:[address] [place], [place] [phone] MEDICAL DIRECTORJOSEPH GARCIA M.D. Performed By: #### G LULS ####Point of Care testing, Glucose [Mass/Vol] 270 mg/dL Normal [facility] Comment on above: Result Comment: [place] om Glucose Reference Range is dependent on time and content of last meal. Glucose of more than 200 mg/dL in a nonstressed, ambulatory subject supports the diagnosis of Diabetes Mellitus. Performed By: #### G LULS ####Point of Care testing, Glucose [Mass/Vol] 135 mg/dL Normal [facility] Comment on above: Result Comment: [place] om Glucose Reference Range is dependent on time and content of last meal. Glucose of more than 200 mg/dL in a nonstressed, ambulatory subject supports the diagnosis of Diabetes Mellitus.PERFORMED BY:[address] [place], [place] [phone] MEDICAL DIRECTORJOSEPH GARCIA M.D. Performed By: #### G LULS ####Point of Care testing, Commemt1 Glu2: Cleaned Meter Normal [facility] Comment on above: Result Comment: PERF ORMED BY:[facility] [place], [place] [phone] MEDICAL DIRECTORJOSEPH GARCIA M.D. Performed By: #### G LULS ####Point of Care testing, Glucose [Mass/Vol] 134 mg/dL Normal [facility] Comment on above: Result Comment: [facility] Glucose Reference Range is dependent on time [...] from glycated hemoglobin (Bld) [Mass/Vol] 160 mg/dL [facility] Gram Stainon 02-26-2023 Microscopic observation Gram stain Nom (Unsp spec) Comment Left 5th MPJ Gram Stain Result Rare White Blood Cells No Bacteria Seen PERFORMED BY: [facility] [address] [place] [address] PATHOLOGIST PIPE RECOVERY SPECIALIST JOSEPH GARCIA M.D. Normal [facility] Comment on above: Performed By: #### G S, AERC ####[facility] [place] [address] [facility] Gram stain for investigation of transfusion reactionOrdered By: Rohan Han on 02-26-2023 Microscopic observation Gram stain Nom (Unsp spec) [facility] Microscopic observation Gram stain Nom (Unsp spec) [facility] Hemoglobin A1c percentageOrd ered By: Geo Thomas on 02-26-2023 HbA1c (Bld) [Mass fraction] 7.2 % High 4.3-5.6 [facility] Comment on above: Increased risk for d iabetes: 5.7 - 6.4diabetes: >6.4glycemic control for adults with diabetes: <7.0 Result Comment: Incr eased risk for diabetes: 5.7 - 6.4 diabetes: >6.4 glycemic control for adults with diabetes: <7.0 Performed By: #### P T, CMP, PTT, LIPID, PAB, CBC, A1C WTH eA ####[facility] [place] [id number] [facility] INR in Platelet poor plasma by Coagulation assayOrdered By: Geo Thomas on 02-26-2023 INR Coag (PPP) [Relative time] 1.0 {INR} Normal [facility] Comment on above: INR Therapeutic Rang [...] PTT, LIPID, PAB, CBC, A1C WT eA ####[facility] [place] [id number] [facility] Neil 02-26-2023 L Normal [facility] Lipid Panelon 02-26-2023 LDL Cholesterol,Calculated 39 mg/dL Normal 0-100 [facility] Comment on above: Order Comment: FASTI NG N Result Comment: LDL ATP III CLASSIFICATION LDL less than 100 mg/dL Optimal LDL 100-129 mg/dL Near or above optimal LDL 130-159 mg/dL Borderline high LDL 160-189 mg/dL High LDL greater than 189 mg/dL Very high Performed By: #### P T, CMP, PTT, LIPID, PAB, CBC, A1C WTH eA ####[facility] [place] [address] [facility] Triglyceride w/Reflex 149 mg/dL Normal 0-149 [facility] Comment on above: Order Comment: [...] PTT, LIPID, PAB, CBC, A1C WTH eA ####[address] [place] [address] [facility] VLDL CHOLESTEROL 29 mg/dL Normal [facility] Comment on above: Order Comment: FASTI NG N Performed By: #### P T, CMP, PTT, LIPID, PAB, CBC, A1C WTH eA ####[address] [place] [address] [facility] Partial Thromboplastin Timeo n 02-26-2023 aPTT Coag (Bld) [Time] 31.6 s Normal 25.1-36.5 Th e [facility] Comment on above: Result Comment: A he matocrit value greater than 55% may lead to inaccurate results in coagulation testing. Patients having hematocrit values >55% require a special collection tube for coagulation studies. Please contact the laboratory at [phone] for redraw instructions.PERFORMED BY:[address] [place], [place] [phone] MEDICAL DIRECTORJOSEPH GARCIA M.D. Performed By: #### P T, CMP, PTT, LIPID, PAB, CBC, A1C WTH eA ####[address] [place] [address] [facility] Prealbumin [Mass/volume] in Serum or PlasmaOrdered By: Geo Thomas on 02-26-2023 Prealbumin [Mass/Vol] 15.7 mg/dL Low 17.0-34.0 [facility] Comment on above: Order Comment: FASTI NG N Performed By: #### P T, CMP, PTT, LIPID, PAB, CBC, A1C WTH eA ####[address] [place] [address] [facility] Prothrombin time (PT)Ordered By: Geo Thomas on 02-26-2023 PT Coag (PPP) [Time] 12.3 s Normal 9.0-12.9 [facility] Comment on above: A hematocrit value g reater than 55% may lead to inaccurate results in coagulation testing. Patients having hematocrit values >55% require a special collection tube for coagulation studies. Please contact the laboratory at [phone] for redraw instructions. Result Comment: A he matocrit value greater than 55% may lead to inaccurate results in coagulation testing. Patients having hematocrit values >55% require a special collection tube for coagulation studies. Please contact the laboratory at [phone] for redraw instructions. Performed By: #### P T, CMP, PTT, LIPID, PAB, CBC, A1C WT eA ####[address] [place] [address] [facility] Serum or plasma high density lipoprotein (HDL) cholesterol measurementOrdered By: Geo Thomas on 02-26-2023 Cholesterol in HDL [Mass/Vol] 23 mg/dL Normal 23-92 [facility] Comment on above: HDL CHOL ATP-III CLA SSIFICATION Cardiovascular RiskHDL > or equal to 60 mg/dL LOWHDL < 40 mg/dL HIGH Order Comment: FASTI NG N Result Comment: HDL CHOL ATP-III CLASSIFICATION Cardiovascular Risk HDL > or equal to 60 mg/dL LOW HDL < 40 mg/dL HIGH Performed By: #### P T, CMP, PTT, LIPID, PAB, CBC, A1C WT eA ####[address] [place] [address] [facility] Serum or plasma total choles terol/high density lipoprotein (HDL) cholesterol mass ratOrdered By: Geo Thomas on 02-26-2023 Cholesterol.total/Chol esterol in HDL [Mass ratio] 4.0 {ratio} Normal <5.0 [facility] Comment on above: Order Comment: FASTI NG N Result Comment: PERF ORMED BY:[address] [address] [address] [place], [place] [phone] MEDICAL DIRECTORJOSEPH GARCIA M.D. Performed By: #### P T, CMP, PTT, LIPID, PAB, CBC, [facility]C [facility] ####[address] [place] [address] [facility] Triglyceride [Mass/volume] i n Serum or PlasmaOrdered By: Geo Thomas on 02-26-2023 Triglyceride [Mass/Vol] 149 mg/dL 0-149 [facility] Comment on above: TRIG ATP III CLASSIF ICATIONTRIG less than 150 mg/dL NormalTRIG 150-199 mg/dL Borderline highTRIG 200-500 mg/dL High TRIG greater than 500 mg/dL Very highStandard traceable to the Center for Disease Conrtrol and Prevention (CDC) test method. Vancomycin [Mass/volume] in Serum or Plasma --peakOrdered By: Brennan Cerrato on 02-26-2023 Vancomycin peak [Mass/Vol] 40.5 ug/mL 20.0-40.0 [facility] Comment on above: Last dose: - Vancomycin,Peakon 02-26-2023 Vancomycin,Peak 40.5 ug/mL High 20.0-40.0 [facility] Comment on above: Order Comment: Comme nt ?DRAW 1 HOUR AFTER INFUSION COMPLETES Date of last dose?: 20230226 Time of last dose?: 1500 Result Comment: Last dose: -PERFORMED BY:[address] [address] [address] [place], [place] [phone] MEDICAL DIRECTORJOSEPH GARCIA M.D. Performed By: #### V ANCP ####[address] [place] [address] [facility] XR foot LT 2Von 02-26-2023 XR foot LT 2V Normal [facility] Glucose Poct Glucometerson 1 Glucose [Mass/Vol] 172 mg/dL Normal [facility] Comment on above: Result Comment: [place] Glucose Reference Range is dependent on time and content of last meal. Glucose of more than 200 mg/dL in a nonstressed, ambulatory subject supports the diagnosis of Diabetes Mellitus.PERFORMED BY:[address] [address] [address] [place], [place] [phone] MEDICAL DIRECTORJOSEPH GARCIA M.D. Performed By: #### G LULS ####Point of Care testing, Glucose [Mass/Vol] 208 mg/dL Normal [facility] Comment on above: Result Comment: [facility] Glucose Reference Range is dependent on time and content of last meal. Glucose of more than 200 mg/dL in a nonstressed, ambulatory subject supports the diagnosis of Diabetes Mellitus.PERFORMED BY:[address] [place], [place] [phone] MEDICAL DIRECTORJOSEPH GARCIA M.D. Performed By: #### G LULS ####Point of Care testing, Glucose [Mass/Vol] 85 mg/dL Normal [facility] Comment on above: Result Comment: [facility] Glucose Reference Range is dependent on time and content of last meal. Glucose of more than 200 mg/dL in a nonstressed, ambulatory subject supports the diagnosis of Diabetes Mellitus.PERFORMED BY:[address] [address] [address] [place], [place] [phone] MEDICAL DIRECTORJOSEPH GARCIA M.D. Performed By: #### G LULS ####Point of Care testing, Glucose [Mass/Vol] 86 mg/dL Normal [facility] Comment on above: Result Comment: [facility] Glucose Reference Range is dependent on time and content of last meal. Glucose of more than 200 mg/dL in a nonstressed, ambulatory subject supports the diagnosis of Diabetes Mellitus.PERFORMED BY:[address] [address] [address] [place], [place] [phone] MEDICAL DIRECTORJOSEPH GARCIA M.D. Performed By: #### G LULS ####Point of Care testing, MR foot LT wo conon 02-26-20 23 MR foot LT wo con Normal The [facility] Vancomycin,Peakon 02-25-2023 Vancomycin,Peak 21.1 ug/mL Normal 20.0-40.0 [facility] Comment on above: Order Comment: Comme nt ?DRAW 1 HOUR AFTER INFUSION COMPLETES Date of last dose?: 20230223 Time of last dose?: 1300 Result Comment: Last dose: -PERFORMED BY:[address] [address] [address] [place] [place], [place] [phone] MEDICAL DIRECTORJOSEPH GARCIA M.D. Performed By: #### V ANCP ####[address] [address] [facility] Vancomycin,Troughon 02-26-20 23 Vancomycin,Trough 13.7 ug/mL Normal 10.0-20.0 The [facility] Comment on above: Order Comment: Time of next dose? 1000 Date of last dose?: 20230223 Time of last dose?: 0000 Result Comment: Last dose: -PERFORMED BY:[address] [address] [address] [place], [place] [phone] MEDICAL DIRECTORJOSEPH GARCIA M.D. Performed By: #### V ANCT ####[address] [address] [facility] Basic Metabolic Panelon 10-0 Anion gap [Moles/Vol] 8.6 mmol/L Normal 6.0-15.0 [facility] Comment on above: Performed By: #### B STARLA CBCNO ####[place] [id number] [facility] Calcium [Mass/Vol] 8.1 mg/dL Low 8.6-10.3 [facility] Comment on above: Performed By: #### B STARLA CBCNO ####[place] [id number] [facility] Chloride [Moles/Vol] 104 mmol/L Normal 98-107 [facility] Comment on above: Performed By: #### B MP CBCNO ####[place] [id number] [facility] CO2 [Moles/Vol] 27.2 mmol/L Normal 21.0-31.0 [facility] Comment on above: Performed By: #### B MP, CBCNO ####[place] [id number] [place] Creatinine [Mass/Vol] 0.61 mg/dL Low 0.70-1.30 [facility] Comment on above: Performed By: #### B STARLA, CBCNO ####[address] [place] [address] [place] Creatinine Clr Calc Pharmacy 98.52 Normal [facility] Comment on above: Result Comment: PERF ORMED BY:[address] LATamikoTracyLUZ [place], [place] [phone] MEDICAL DIRECTORJOSEPH GARCIA M.D. Performed By: #### B STARLA, CBCNO ####[address] [address] [place] GFR/1.73 sq M.predicted MDRD (S/P/Bld) [Vol rate/Area] mL/min/{1.73_m2} Normal [facility] Comment on above: Performed By: #### B STARLA, CBCNO ####[address] [address] [facility] Glucose [Mass/Vol] 162 mg/dL High 70-100 [facility] Comment on above: Result Comment: [place] Glucose Reference Range is dependent on time and content of last meal. Glucose of more than 200 mg/dL in a nonstressed, ambulatory subject supports the diagnosis of Diabetes Mellitus. ADA recommended reference range Performed By: #### B STARLA, CBCNO ####[address] [address] [place] Potassium [Moles/Vol] 3.8 mmol/L Normal 3.5-5.1 [facility] Comment on above: Performed By: #### B STARLA, CBCNO ####[address] [address] [place] Sodium [Moles/Vol] 136 mmol/L Normal 136-145 [facility] Comment on above: Performed By: #### B STARLA, CBCNO ####[address] [place] [address] [facility] Urea nitrogen [Mass/Vol] 9 mg/dL Normal 7-25 [facility] Comment on above: Performed By: #### B STARLA, CBCNO ####[facility] [address] [place] [address] [facility] Glucose Poct Glucometerson 1 Glucose [Mass/Vol] 201 mg/dL Normal [facility] Comment on above: Result Comment: [place] om Glucose Reference Range is dependent on time and content of last meal. Glucose of more than 200 mg/dL in a nonstressed, ambulatory subject supports the diagnosis of Diabetes Mellitus.PERFORMED BY:[address] [address] [address] [place], [place] [phone] MEDICAL DIRECTORJOSEPH GARCIA M.D. Performed By: #### G LULS ####Point of Care testing, Commemt1 Glu2: Cleaned Meter Normal [facility] Comment on above: Result Comment: PERF ORMED BY:[address] [place], [place] [phone] MEDICAL DIRECTORJOSEPH GARCIA M.D. Performed By: #### G LULS ####Point of Care testing, Glucose [Mass/Vol] 141 mg/dL Normal [facility] Comment on above: Result Comment: [place] om Glucose Reference Range is dependent on time and content of last meal. Glucose of more than 200 mg/dL in a nonstressed, ambulatory subject supports the diagnosis of Diabetes Mellitus. Performed By: #### G LULS ####Point of Care testing, Glucose [Mass/Vol] 169 mg/dL Normal [facility] Comment on above: Result Comment: [place] om Glucose Reference Range is dependent on time and content of last meal. Glucose of more than 200 mg/dL in a nonstressed, ambulatory subject supports the diagnosis of Diabetes Mellitus.PERFORMED BY:[address] [place], [place] [phone] MEDICAL DIRECTORJOSEPH GARCIA M.D. Performed By: #### G LULS ####Point of Care testing, Glucose [Mass/Vol] 169 mg/dL Normal [facility] Comment on above: Result Comment: [place] om Glucose Reference Range is dependent on time and content of last meal. Glucose of more than 200 mg/dL in a nonstressed, ambulatory subject supports the diagnosis of Diabetes Mellitus.PERFORMED BY:[address] [place], [place] [phone] MEDICAL DIRECTORJOSEPH GARCIA M.D. Performed By: #### G VALERY ####Point of Care testing, Hemogram CBC Without Diffon 02-24-2023 Erythrocyte distribution width (RBC) [Ratio] 13.8 % Normal 12.0-14.8 [facility] Comment on above: Performed By: #### B MP, CBCNO ####[address] [address] [facility] Hematocrit (Bld) [Volume fraction] 36.5 % Low 38.8-50.0 [facility] Comment on above: Performed By: #### B STARLA, CBCNO ####[address] [address] [facility] Hemoglobin (Bld) [Mass/Vol] 12.2 g/dL Low 13.0-17.0 [facility] Comment on above: Performed By: #### B STARLA, CBCNO ####[address] [address] [facility] MCH (RBC) [Entitic mass] 29.6 pg Normal 27.5-35.2 [facility] Comment on above: Performed By: #### B MP, CBCNO ####[address] [address] [facility] MCV (RBC) [Entitic vol] 88.4 fL Normal 83.5-101 [facility] Comment on above: Performed By: #### B MP, CBCNO ####[address] [address] [facility] Mean Corpuscular HGB Conc 33.5 g/dL Normal 32.5-35.6 [facility] Comment on above: Performed By: #### B MP, CBCNO ####[address] [address] [facility] Platelet mean volume (Bld) [Entitic vol] 8.2 fL Normal 6.6-10.1 [facility] Comment on above: Result Comment: PERF ORMED BY:[address] [place], [place] [phone] MEDICAL DIRECTORJOSEPH GARCAI M.D. Performed By: #### B MP, CBCNO ####[address] [place] [address] [facility] Platelets (Bld) [#/Vol] 290 10*3/uL Normal 150-450 [facility] Comment on above: Performed By: #### B MP, CBCNO ####[address] [address] [facility] RBC (Bld) [#/Vol] 4.13 10*6/uL Normal 3.90-5.60 [facility] Comment on above: Performed By: #### B MP, CBCNO ####[address] [address] [facility] WBC (Bld) [#/Vol] 11.9 10*3/uL High 4.1-10.5 [facility] Comment on above: Performed By: #### B MP, CBCNO ####[place] [id number] [facility] Alanine aminotransferase [En zymatic activity/volume] in Serum or PlasmaOrdered By: Rico Carr on 02-23-2023 ALT [Catalytic activity/Vol] 31 U/L Normal 7-52 [facility] Comment on above: Performed By: #### C UBLD, CMP, CBC, LACTIC ####[place] [id number] [facility] Albumin [Mass/volume] in Ser um or Plasma by Bromocresol green (BCG) dye binding methoOrdered By: Rico Carr on 02-23-2023 Albumin BCG dye [Mass/Vol] 3.6 g/dL 3.5-5.7 [facility] Alkaline phosphatase [Enzyma tic activity/volume] in Serum or PlasmaOrdered By: Rico Carr on 02-23-2023 ALP [Catalytic activity/Vol] 94 U/L Normal 34-104 [facility] Comment on above: Performed By: #### C UBLD, CMP, CBC, LACTIC ####[address] Aspartate aminotransferase [ Enzymatic activity/volume] in Serum or PlasmaOrdered By: Rico Carr on 02-23-2023 AST [Catalytic activity/Vol] 16 U/L Normal 13-39 [facility] Comment on above: Performed By: #### C UBLD, CMP, CBC, LACTIC ####[address] Automated basophil %Ordered By: Rico Carr on 02-23-2023 Basophils/100 WBC (Bld) 0.6 % Normal . [facility] Comment on above: Performed By: #### C UBLD, CMP, CBC, LACTIC ####[address] Automated basophil countOrde red By: Rico Carr on 02-23-2023 Basophils (Bld) [#/Vol] 0.1 10*3/uL Normal 0.0-0.2 [facility] Comment on above: Result Comment: PERF ORMED BY:[address] [place], [place] [phone] MEDICAL SILVIA GARCIA M.D. Performed By: #### C UBLD, CMP, CBC, LACTIC ####[address] Automated blood monocyte cou ntOrdered By: Rico Carr on 02-23-2023 Monocytes (Bld) [#/Vol] 1.3 10*3/uL High 0.0-0.8 [facility] Comment on above: Performed By: #### C UBLD, CMP, CBC, LACTIC ####[address] Automated eosinophil %Ordere d By: Rico Carr on 02-23-2023 Eosinophils/100 WBC (Bld) 1.1 % Normal . [facility] Comment on above: Performed By: #### C UBLD, CMP, CBC, LACTIC ####[address] Automated eosinophil countOr dered By: Rico Carr on 02-23-2023 Eosinophils (Bld) [#/Vol] 0.1 10*3/uL Normal 0.0-0.45 [facility] Comment on above: Performed By: #### C UBLD, CMP, CBC, LACTIC ####[address] Automated monocyte %Ordered By: Rico Carr on 02-23-2023 Monocytes/100 WBC (Bld) 10.0 % Normal . [facility] Comment on above: Performed By: #### C UBLD, CMP, CBC, LACTIC ####[address] Automated neutrophil %Ordere d By: Rico Carr on 02-23-2023 Neutrophils/100 WBC (Bld) 69.6 % Normal . [facility] Comment on above: Performed By: #### C UBLD, CMP, CBC, LACTIC ####[address] Bacterial blood cultureOrder ed By: Rico Carr on 02-23-2023 Bacteria identified Cx Nom (Bld) NO GROWTH 5 DAYS [facility] Bacteria identified Cx Nom (Bld) NO GROWTH 5 DAYS [facility] Bilirubin.total [Mass/volume ] in Serum or PlasmaOrdered By: Rico Carr on 02-23-2023 Bilirubin [Mass/Vol] 0.9 mg/dL Normal 0.3-1.0 [facility] Comment on above: Performed By: #### C UBLD, CMP, CBC, LACTIC ####[address] Blood Cultureon 02-23-2023 Bacteria identified Cx Nom (Bld) NO GROWTH 5 DAYS PERFORMED BY: [facility] [address] [place] [address] PATHOLOGIST PIPE RECOVERY SPECIALIST JOSEPH GARCIA M.D. Normal [facility] Comment on above: Performed By: #### C UBLD, CMP, CBC, LACTIC ####[address] Bacteria identified Cx Nom (Bld) NO GROWTH 5 DAYS PERFORMED BY: [facility] [address] [place] [address] PATHOLOGIST PIPE RECOVERY SPECIALIST JOSEPH GARCIA M.D. Normal [facility] Comment on above: Performed By: #### C UBLD, CMP, CBC, LACTIC ####[address] Calcium [Mass/volume] in Ser um or PlasmaOrdered By: Rico Carr on 02-23-2023 Calcium [Mass/Vol] 8.7 mg/dL Normal 8.6-10.3 [facility] Comment on above: Performed By: #### C UBLD, CMP, CBC, LACTIC ####[address] Carbon dioxide, total [Moles /volume] in Serum or PlasmaOrdered By: Rico Carr on 02-23-2023 CO2 [Moles/Vol] 25.0 mmol/L Normal 21.0-31.0 [facility] Comment on above: Performed By: #### C UBLD, CMP, CBC, LACTIC ####[address] Chloride [Moles/volume] in S rene or PlasmaOrdered By: Rico Carr on 02-23-2023 Chloride [Moles/Vol] 101 mmol/L Normal 98-107 [facility] Comment on above: Performed By: #### C UBLD, CMP, CBC, LACTIC ####[address] Complete Blood Count Auto Di ffon 02-23-2023 Mean Corpuscular HGB Conc 34.1 g/dL Normal 32.5-35.6 [facility] Comment on above: Performed By: #### C UBLD, CMP, CBC, LACTIC ####[address] Monocytes/100 WBC (Bld) 18.95 % Normal 0.00-20.00 [facility] Comment on above: Performed By: #### C UBLD, CMP, CBC, LACTIC ####[address] NRBC% 0.1 /100{WBC} Normal 0-0.5 [facility] Comment on above: Performed By: #### C UBLD, CMP, CBC, LACTIC ####[address] Comprehensive Metabolic Pane neil 02-23-2023 Albumin [Mass/Vol] 3.6 g/dL Normal 3.5-5.7 [facility] Comment on above: Performed By: #### C UBLD, CMP, CBC, LACTIC ####[address] Creatinine Clr Calc Pharmacy 97.63 Normal [facility] Comment on above: Result Comment: PERF ORMED BY:[address] [place], [place] [phone] MEDICAL DIRECTORJOSEPH GARCIA M.D. Performed By: #### C UBLD, CMP, CBC, LACTIC ####[address] GFR/1.73 sq M.predicted MDRD (S/P/Bld) [Vol rate/Area] mL/min/{1.73_m2} Normal [facility] Comment on above: Performed By: #### C UBLD, CMP, CBC, LACTIC ####[address] Creatinine [Mass/volume] in Serum or PlasmaOrdered By: Rico Carr on 02-23-2023 Creatinine [Mass/Vol] 0.74 mg/dL Normal 0.70-1.30 [facility] Comment on above: Performed By: #### C UBLD, CMP, CBC, LACTIC ####[address] Erythrocyte distribution wid th [Ratio] by Automated countOrdered By: Rico Carr on 02-23-2023 Erythrocyte distribution width (RBC) [Ratio] 14.0 % Normal 12.0-14.8 [facility] Comment on above: Performed By: #### C UBLD, CMP, CBC, LACTIC ####[place] [id number] Erythrocytes [#/volume] in B lood by Automated countOrdered By: Rico Carr on 02-23-2023 RBC (Bld) [#/Vol] 4.61 10*6/uL Normal 3.90-5.60 [facility] Comment on above: Performed By: #### C UBLD, CMP, CBC, LACTIC ####[address] Glucose [Mass/volume] in Ser um or PlasmaOrdered By: Rico Carr on 02-23-2023 Glucose [Mass/Vol] 188 mg/dL High 70-100 [facility] Comment on above: ADA recommended refe rence rangeRandom Glucose Reference Range is dependent on time and content of last meal. Glucose of more than 200 mg/dL in a nonstressed, ambulatory subject supports the diagnosis of Diabetes Mellitus. Result Comment: [place] om Glucose Reference Range is dependent on time and content of last meal. Glucose of more than 200 mg/dL in a nonstressed, ambulatory subject supports the diagnosis of Diabetes Mellitus. ADA recommended reference range Performed By: #### C UBLD, CMP, CBC, LACTIC ####[place] [address] [place] [id number] [facility] Hematocrit [Volume Fraction] of Blood by Automated countOrdered By: Rico Carr on 02-23-2023 Hematocrit (Bld) [Volume fraction] 40.6 % Normal 38.8-50.0 [facility] Comment on above: Performed By: #### C UBLD, CMP, CBC, LACTIC ####[place] [id number] [facility] Hemoglobin [Mass/volume] in BloodOrdered By: Rico Carr on 02-23-2023 Hemoglobin (Bld) [Mass/Vol] 13.8 g/dL Normal 13.0-17.0 [facility] Comment on above: Performed By: #### C UBLD, CMP, CBC, LACTIC ####[place] [address] [place] [address] [facility] Lactate [Moles/volume] in Se rum or PlasmaOrdered By: Rico Carr on 02-23-2023 Lactate [Moles/Vol] 1.9 mmol/L 0.5-2.2 [facility] Lactate [Moles/Vol] 2.4 mmol/L Off scale high 0.5-2.2 [facility] Comment on above: Critical Result : Ca lled to and read back by: SIRISHA HOPE/ER at: 02/23/2023 12:53:26 by:[id number] Result Comment: Crit ical Result : Called to and read back by: SIRISHA HOPE/ER at: 02/23/2023 12:53:26 by:[id number] BY:[place] [address] [place], [place] [phone] MEDICAL DIRECTORJOSEPH GARCIA M.D. Performed By: #### C UBLD, CMP, CBC, LACTIC ####[place] [address] [place] [address] [facility] Lactic Acid Reflexon 023 Lactic Acid Reflex 1.9 mmol/L Normal 0.5-2.2 [facility] Comment on above: Result Comment: PERF ORMED BY:[place] [address] [place], [place] [phone] MEDICAL DIRECTORJOSEPH GARCIA M.D. Performed By: #### L ACTIC RFX ####[place] [address] [place] [address] [facility] Leukocytes [#/volume] correc jewel for nucleated erythrocytes in Blood by Automated counOrdered By: Rico Carr on 02-23-2023 WBC corrected for nucl RBC Auto (Bld) [#/Vol] 13.0 10*3/uL 4.1-10.5 [facility] Leukocytes [#/volume] in Blo od by Automated countOrdered By: Rico Carr on 02-23-2023 WBC (Bld) [#/Vol] 13.0 10*3/uL High 4.1-10.5 [facility] Comment on above: Performed By: #### C UBLD, CMP, CBC, LACTIC ####[address] Lymphocytes [#/volume] in Bl ood by Automated countOrdered By: Rico Carr on 02-23-2023 Lymphocytes (Bld) [#/Vol] 2.4 10*3/uL Normal 1.00-4.8 [facility] Comment on above: Performed By: #### C UBLD, CMP, CBC, LACTIC ####[address] Lymphocytes/100 leukocytes i n Blood by Automated countOrdered By: Rico Carr on 02-23-2023 Lymphocytes/100 WBC (Bld) 18.7 % Normal . [facility] Comment on above: Performed By: #### C UBLD, CMP, CBC, LACTIC ####[address] MCH [Entitic mass] by Automa jewel countOrdered By: Rico Carr on 02-23-2023 MCH (RBC) [Entitic mass] 30.0 pg Normal 27.5-35.2 [facility] Comment on above: Performed By: #### C UBLD, CMP, CBC, LACTIC ####[address] MCHC Auto (RBC) [Mass/Vol]Or dered By: Rico Carr on 02-23-2023 MCHC (RBC) [Mass/Vol] 34.1 g/dL 32.5-35.6 [facility] MCV [Entitic volume] by Auto mated countOrdered By: Rico Crar on 02-23-2023 MCV (RBC) [Entitic vol] 88.1 fL Normal 83.5-101 [facility] Comment on above: Performed By: #### C UBLD, CMP, CBC, LACTIC ####[address] [address] [place] Monocyte distribution width [Entitic volume] in Blood by AutomatedOrdered By: Rico Carr on 02-23-2023 Monocyte distribution width Auto (Bld) [Entitic vol] 18.95 % 0.00-20.00 [facility] Neutrophils [#/volume] in Bl ood by Automated countOrdered By: Rico Carr on 02-23-2023 Neutrophils (Bld) [#/Vol] 9.0 10*3/uL High 1.8-7.7 [facility] Comment on above: Performed By: #### C UBLD, CMP, CBC, LACTIC ####[place] [id number] No Panel InformationOrdered By: Rico Carr on 02-23-2023 Estimated GFR (CKD-EPI) > 60.0 mL/Min [facility] Creatinine Clearance (Chem 97.63 [facility] Nucleated erythrocytes [Pres ence] in Blood by Automated countOrdered By: Rico Carr on 02-23-2023 Nucleated RBC Auto Ql (Bld) 0.1 /100{WBC} 0-0.5 [facility] Platelet mean volume [Entiti c volume] in Blood by Automated countOrdered By: Rico Carr on 02-23-2023 Platelet mean volume (Bld) [Entitic vol] 8.6 fL Normal 6.6-10.1 [facility] Comment on above: Performed By: #### C UBLD, CMP, CBC, LACTIC ####[address] Platelets [#/volume] in Bloo d by Automated countOrdered By: Rico Carr on 02-23-2023 Platelets (Bld) [#/Vol] 363 10*3/uL Normal 150-450 [facility] Comment on above: Performed By: #### C UBLD, CMP, CBC, LACTIC ####[place] [address] Potassium [Moles/volume] in Serum or PlasmaOrdered By: Rico Carr on 02-23-2023 Potassium [Moles/Vol] 3.8 mmol/L Normal 3.5-5.1 [facility] Comment on above: Performed By: #### C UBLD, CMP, CBC, LACTIC ####[address] Protein [Mass/volume] in Ser um or PlasmaOrdered By: Rico Carr on 02-23-2023 Protein [Mass/Vol] 7.0 g/dL Normal 6.4-8.9 [facility] Comment on above: Performed By: #### C UBLD, CMP, CBC, LACTIC ####[address] Serum globulin measurement b y calculation (mass/volume)Ordered By: Rico Carr on 02-23-2023 Globulin (S) [Mass/Vol] 3.4 g/dL [facility] Comment on above: Performed By: #### C UBLD, CMP, CBC, LACTIC ####[address] Serum or plasma albumin/glob ulin mass ratioOrdered By: Rico Carr on 02-23-2023 Albumin/Globulin [Mass ratio] 1.1 {ratio} [facility] Comment on above: Performed By: #### C UBLD, CMP, CBC, LACTIC ####[address] Serum or plasma anion gap de terminationOrdered By: Rico Carr on 02-23-2023 Anion gap [Moles/Vol] 10.8 mmol/L Normal 6.0-15.0 [facility] Comment on above: Performed By: #### C UBLD, CMP, CBC, LACTIC ####[address] Sodium [Moles/volume] in Ser um or PlasmaOrdered By: Rico Carr on 02-23-2023 Sodium [Moles/Vol] 133 mmol/L Low 136-145 [facility] Comment on above: Performed By: #### C UBLD, CMP, CBC, LACTIC ####[address] [place] [address] [facility] Urea nitrogen [Mass/volume] in Serum or PlasmaOrdered By: Rico Carr on 02-23-2023 Urea nitrogen [Mass/Vol] 13 mg/dL Normal 7-25 [facility] Comment on above: Performed By: #### C UBLD, CMP, CBC, LACTIC ####[address] [address] [place] XR foot LT min 3V*on 023 XR foot LT min 3V* Normal [facility] US UNI ankle/arm indiceson 0 02-03-2023 US UNI ankle/arm indices Normal [facility] Creatinineon 01-13-2023 Creatinine Clr Calc Pharmacy 97.20 Normal [facility] Comment on above: Result Comment: PERF ORMED BY:[address] [place], [place] [phone] MEDICAL DIRECTORJOSEPH GARCIA M.D. Performed By: #### B UN, CREAT ####[address] [address] [facility] GFR/1.73 sq M.predicted MDRD (S/P/Bld) [Vol rate/Area] mL/min/{1.73_m2} Normal [facility] Comment on above: Performed By: #### B UN, CREAT ####[address] [address] [facility] Creatinine [Mass/volume] in Serum or PlasmaOrdered By: Dhruv Bautista on 01-13-2023 Creatinine [Mass/Vol] 0.74 mg/dL Normal 0.70-1.30 [facility] Comment on above: Performed By: #### B UN, CREAT ####[address] [address] [facility] No Panel InformationOrdered By: Dhruv Bautista on 01-13-2023 Estimated GFR (CKD-EPI) > 60.0 mL/Min [facility] Creatinine Clearance (Chem 97.20 [facility] Urea nitrogen [Mass/volume] in Serum or PlasmaOrdered By: Dhruv Bautista on 01-13-2023 Urea nitrogen [Mass/Vol] 10 mg/dL Normal 7-25 [facility] Comment on above: Performed By: #### B SORAYA ACEVEDO ####[facility] [id number] [place] [address] [facility] A1C HEMOGLOBINon 07-24-2022 HbA1c (Bld) [Mass fraction] 9.0 % [employer] Other Creatinine [Mass/volume] in UrineOrdered By: Louise Sotelo on 07-24-2022 Creatinine (U) [Mass/Vol] 155.9 mg/dL [facility] Comment on above: No reference range e stablished Glucose - FINGER STICKon Glucose [Mass/Vol] 162 mg/dL [employer] Other HbA1c (Bld) [Mass fraction]o n 07-24-2022 A1C HEMOGLOBIN [facility] [employer] Other Microalbumin [Mass/volume] i n UrineOrdered By: Louise Sotelo on 07-24-2022 Albumin DL <= 20 mg/L (U) [Mass/Vol] 3.5 mg/dL 0.0-1.8 [facility] Urine microalbumin/creatinin e mass ratioOrdered By: Louise Sotelo on 07-24-2022 Albumin/Creatinine DL <= 20 mg/L (U) [Mass ratio] 22.0 mg/g 0.0-30.0 [facility] Comment on above: 30-300 mg/g indicate s an increased risk for diabetic nephropathy. Greater than 300 mg/g is consistent with clinical nephropathy. (Am. J. Kidney Disease 1995, 25:107) POINT OF CARE GLUCOSEon 06-27 Glucose [Mass/Vol] 156 mg/dL Critically high 74-106 [facility] Comment on above: Performed By: #### P OCGLUC #### [facility] [address] [place] [address] [address] Daniel Sosa A1C HEMOGLOBINon 02-06-2022 HbA1c (Bld) [Mass fraction] 8.5 % [employer] Other Glucose - FINGER STICKon Glucose [Mass/Vol] 211 mg/dL [employer] Other HbA1c (Bld) [Mass fraction]o n 02-06-2022 A1C HEMOGLOBIN [employer] Other A1C HEMOGLOBINon 08-23-2021 HbA1c (Bld) [Mass fraction] 11 % [employer] Other Glucose - FINGER STICKon Glucose [Mass/Vol] 266 mg/dL [employer] Other HbA1c (Bld) [Mass fraction]o n 08-23-2021 A1C HEMOGLOBIN [employer] Other Glucose - FINGER STICKon Glucose [Mass/Vol] 271 mg/dL [employer] Other A1C HEMOGLOBINon 02-22-2021 HbA1c (Bld) [Mass fraction] 11.4 % [employer] Other Glucose - FINGER STICKon Glucose [Mass/Vol] 282 mg/dL [employer] Other HbA1c (Bld) [Mass fraction]o n 02-22-2021 A1C HEMOGLOBIN [employer] Other Albumin [Mass/volume] in Ser um or Plasmaon 12-29-2019 Albumin [Mass/Vol] 3.8 g/dL 3.2-5.5 [facility] Alkaline phosphatase [Enzyma tic activity/volume] in Serum or Plasmaon 12-29-2019 ALP [Catalytic activity/Vol] 87 U/L 32-92 [facility] Aspartate aminotransferase [ Enzymatic activity/volume] in Serum or Plasmaon 12-29-2019 AST [Catalytic activity/Vol] 20 U/L 10-42 [facility] Bilirubin.total [Mass/volume ] in Serum or Plasmaon 12-29-2019 Bilirubin [Mass/Vol] 0.6 mg/dL 0.3-1.2 [facility] Calcium [Mass/volume] in Ser um or Plasmaon 12-29-2019 Calcium [Mass/Vol] 9.5 mg/dL 8.2-10.2 [facility] Carbon dioxide, total [Moles /volume] in Serum or Plasmaon 12-29-2019 CO2 [Moles/Vol] 23.8 mmol/L 22.0-30.0 [facility] Chloride [Moles/volume] in S rene or Plasmaon 12-29-2019 Chloride [Moles/Vol] 95 mmol/L 95-114 [facility] Cholesterol [Mass/volume] in Serum or Plasmaon 12-29-2019 Cholesterol [Mass/Vol] 235 mg/dL 140-200 [facility] Comment on above: Chol less than 200 m g/dl low riskChol 201-239 mg/dl borderline riskChol 240 mg/dl and greater high risk Cholesterol in LDL Calc [Mas s/Vol]on 12-29-2019 Cholesterol in LDL [Mass/Vol] [facility] Comment on above: Test not performed Cholesterol in LDL [Mass/vol ume] in Serum or Plasmaon 12-29-2019 Cholesterol in LDL [Mass/Vol] 126 mg/dL 0-100 [facility] Comment on above: LDL ATP III CLASSIFI CATIONLDL less than 100 mg/dL OptimalLDL 100-129 mg/dL Near or above optimalLDL 130-159 mg/dL Borderline highLDL 160-189 mg/dL HighLDL greater than 189 mg/dL Very high Cholesterol in VLDL Calc [Ma ss/Vol]on 12-29-2019 Cholesterol in VLDL [Mass/Vol] [facility] Comment on above: Test not performed Creatinine and Glomerular fi ltration rate.predicted panel (S/P/Bld)on 12-29-2019 Creatinine [Mass/Vol] 0.72 mg/dL 0.64-1.27 [facility] Estimated glomerular filtrat ion rate (GFR) non- Americanon 12-29-2019 GFR/1.73 sq M.predicted among non-blacks MDRD (S/P/Bld) [Vol rate/Area] mL/min/{1.73_m2} [facility] Globulin Calc (S) [Mass/Vol] on 12-29-2019 Globulin (S) [Mass/Vol] 3.1 g/dL [facility] Glucose [Mass/volume] in Ser or Plasmaon 12-29-2019 Glucose [Mass/Vol] 213 mg/dL 70-100 [facility] Comment on above: ADA recommended refe rence rangeRandom Glucose Reference Range is dependent on time and content of last meal. Glucose of more than 200 mg/dL in a nonstressed, ambulatory subject supports the diagnosis of Diabetes Mellitus. Laboratory - Chemistry and C hemistry - challengeon 12-29-2019 GFR/1.73 sq M.predicted MDRD (S/P/Bld) [Vol rate/Area] mL/min/{1.73_m2} [facility] Comment on above: GFR estimated refere nce range: According to KDOQI guidelines, <60 ml/min/1.73m2 is sufficient to diagnose a patient with chronic kidney disease. No Panel Informationon 12-28 25-Hydroxy Vitamin D Total 21.4 ng/mL 30-100 [facility] Comment on above: VITAMIN D STATUS 25( [place])VITAMIN D RANGE (ng/mL) Deficient <20 Insufficient 20 to <30Sufficient 30 to 100Reference: Kayla MF,Lily NC, Florence RENAE, et al. Evaluation,treatment, and prevention of vitamin D deficiency; an Endocrine Society clinical practice guideline. JCEM. 2010; 96(7):1911-30. Pharmacy Creatinine Clearance (Chem N/A [facility] > 60 [facility] 21.4 ng/mL 30-100 [facility] N/A [facility] Potassium [Moles/volume] in Serum or Plasmaon 12-29-2019 Potassium [Moles/Vol] 3.9 mmol/L 3.5-5.1 [facility] Protein [Mass/volume] in Ser um or Plasmaon 12-29-2019 Protein [Mass/Vol] 6.9 g/dL 6.1-7.9 [facility] Serum or plasma alanine matias otransferase measurement without P-5'-P (enzymatic activion 12-29-2019 ALT No additional P-5'-P [Catalytic activity/Vol] 15 U/L 10-60 [facility] Serum or plasma albumin/glob ulin mass ratioon 12-29-2019 Albumin/Globulin [Mass ratio] 1.2 {ratio} [facility] Serum or plasma creatinine m easurement with calculation of estimated glomerular filtron 12-29-2019 Creatinine and Glomerular filtration rate.predicted panel (S/P/Bld) 0.72 mg/dL 0.64-1.27 [facility] Serum or plasma high density lipoprotein (HDL) cholesterol measurementon 12-29-2019 Cholesterol in HDL [Mass/Vol] 36 mg/dL 29-71 [facility] Comment on above: HDL CHOL ATP-III CLA SSIFICATION Cardiovascular RiskHDL > or equal to 60 mg/dL LOWHDL < 40 mg/dL HIGH Serum or plasma total choles terol/high density lipoprotein (HDL) cholesterol mass amy 12-29-2019 Cholesterol.total/Chol esterol in HDL [Mass ratio] 6.5 {ratio} <5.0 [facility] Sodium [Moles/volume] in Ser um or Plasmaon 12-29-2019 Sodium [Moles/Vol] 132 mmol/L 136-146 [facility] Triglyceride [Mass/volume] i n Serum or Plasmaon 12-29-2019 Triglyceride [Mass/Vol] 449 mg/dL 35-149 [facility] Comment on above: If the triglyceride [...] Plasmaon 12-29-2019 Urea nitrogen [Mass/Vol] 9 mg/dL 9- [facility] Vital Signs Date Time Vital Sign Value Performing Clinician Facility 01-06-2024 16:24-0400 Body height 172.72 cm [facility] 01-06-2024 16:24-0400 Body mass index (BMI) [Ratio] 29.2 kg/m2 [facility] 01-06-2024 16:24-0400 Body temperature 97.1 [degF] [facility] 01-06-2024 16:24-0400 Body weight 87.25 kg [facility] 01-06-2024 16:24-0400 Diastolic blood pressure 67 mm[Hg] [facility] 01-06-2024 16:24-0400 Heart rate 68 /min [facility] 01-06-2024 16:24-0400 Respiratory rate 18 /min [facility] 01-06-2024 16:24-0400 SaO2% (BldA) [Mass fraction] 96 % [facility] 01-06-2024 16:24-0400 Systolic blood pressure 126 mm[Hg] [facility] 01-05-2024 14:42-0400 Diastolic blood pressure 76 mm[Hg] [facility] 01-05-2024 14:42-0400 Systolic blood pressure 141 mm[Hg] [facility] 01-05-2024 14:37-0400 Body height 172.72 cm [facility] 01-05-2024 14:37-0400 Body mass index (BMI) [Ratio] 29 kg/m2 [facility] 01-05-2024 14:37-0400 Body weight 86.8 kg [facility] 01-05-2024 14:37-0400 Heart rate 85 /min [facility] 01-05-2024 14:37-0400 Respiratory rate 18 /min [facility] 01-05-2024 14:37-0400 SaO2% (BldA) [Mass fraction] 99 % [facility] 11-04-2023 15:48-0400 Body height 172.72 cm MD Tejas Steevns Work Phone: [facility] 11-04-2023 15:48-0400 Body mass index (BMI) [Ratio] 30.4 kg/m2 MD Tejas Stevens Work Phone: [facility] 11-04-2023 15:48-0400 Body temperature 98.6 [degF] MD Tejas Stevens Work Phone: [facility] 11-04-2023 15:48-0400 Body weight 90.71 kg MD Tejas Stevens Work Phone: [facility] 11-04-2023 15:48-0400 Diastolic blood pressure 75 mm[Hg] MD Tejas Stevens Work Phone: [facility] 11-04-2023 15:48-0400 Heart rate 69 /min MD Tejas Stevens Work Phone: [facility] 11-04-2023 15:48-0400 Respiratory rate 20 /min MD Tejas Stevens Work Phone: [facility] 11-04-2023 15:48-0400 SaO2% (BldA) [Mass fraction] 96 % MD Tejas Stevens Work Phone: [facility] 11-04-2023 15:48-0400 Systolic blood pressure 158 mm[Hg] MD Tejas Stevens Work Phone: [facility] 10-21-2023 13:09-0400 Body height 172.72 cm MD Tejas Stevens Work Phone: [facility] 10-21-2023 13:09-0400 Body mass index (BMI) [Ratio] 33.3 kg/m2 MD Tejas Stevens Work Phone: [facility] 10-21-2023 13:09-0400 Body temperature 97.7 [degF] MD eTjas Stevens Work Phone: [facility] 10-21-2023 13:09-0400 Body weight 99.5 kg MD Tejas Stevens Work Phone: [facility] 10-21-2023 13:09-0400 Diastolic blood pressure 60 mm[Hg] MD Tejas Stevens Work Phone: [facility] 10-21-2023 13:09-0400 Heart rate 82 /min MD Tejas Stevens Work Phone: [facility] 10-21-2023 13:09-0400 Respiratory rate 16 /min MD Tejas Stevens Work Phone: [facility] 10-21-2023 13:09-0400 SaO2% (BldA) [Mass fraction] 92 % MD Tejas Stevens Work Phone: [facility] 10-21-2023 13:09-0400 Systolic blood pressure 150 mm[Hg] MD Tejas Stevens Work Phone: [facility] 09-29-2023 14:11-0400 Body height 172.72 cm MD Tejas Stevens Work Phone: [facility] 09-29-2023 14:11-0400 Body mass index (BMI) [Ratio] 29 kg/m2 MD Tejas Stevens Work Phone: [facility] 09-29-2023 14:11-0400 Body weight 86.63 kg MD Tejas Stevens Work Phone: [facility] 09-29-2023 14:11-0400 Diastolic blood pressure 83 mm[Hg] MD Tejas Stevens Work Phone: [facility] 09-29-2023 14:11-0400 Heart rate 67 /min MD Tejas Stevens Work Phone: [facility] 09-29-2023 14:11-0400 Respiratory rate 18 /min MD Tejas Stevens Work Phone: [facility] 09-29-2023 14:11-0400 SaO2% (BldA) [Mass fraction] 99 % MD Tejas Stevens Work Phone: [facility] 09-29-2023 14:11-0400 Systolic blood pressure 160 mm[Hg] MD Tejas Stevens Work Phone: [facility] 08-23-2023 15:00-0400 Body temperature 98.1 [degF] DO John Ervin Work Phone: [facility] 08-23-2023 15:00-0400 Diastolic blood pressure 71 mm[Hg] DO John Ervin Work Phone: [facility] 08-23-2023 15:00-0400 Heart rate 62 /min DO John Ervin Work Phone: [facility] 08-23-2023 15:00-0400 Inhaled oxygen concentration 30 % DO John Ervin Work Phone: [facility] 08-23-2023 15:00-0400 Respiratory rate 17 /min DO John Ervin Work Phone: [facility] 08-23-2023 15:00-0400 SaO2% (BldA) [Mass fraction] 100 % DO John Ervin Work Phone: [facility] 08-23-2023 15:00-0400 Systolic blood pressure 147 mm[Hg] DO John Ervin Work Phone: [facility] 08-23-2023 05:42-0400 Body weight 87.3 kg DO John Ervin Work Phone: [facility] 08-22-2023 12:26-0400 Body height 172.72 cm DO John Ervin Work Phone: [facility] 08-22-2023 10:14-0400 Inhaled oxygen flow rate 12 L/min DO John Ervin Work Phone: [facility] 08-12-2023 16:00-0400 Body mass index (BMI) [Ratio] 29.9 kg/m2 DO John Ervin Work Phone: [facility] 07-26-2023 12:00-0500 Body temperature 97.6 [degF] DO John Ervin Work Phone: [facility] 07-26-2023 12:00-0500 Diastolic blood pressure 87 mm[Hg] DO John Ervin Work Phone: [facility] 07-26-2023 12:00-0500 Heart rate 95 /min DO John Ervin Work Phone: [facility] 07-26-2023 12:00-0500 Respiratory rate 16 /min DO John Ervin Work Phone: [facility] 07-26-2023 12:00-0500 SaO2% (BldA) [Mass fraction] 97 % DO John Ervin Work Phone: [facility] 07-26-2023 12:00-0500 Systolic blood pressure 181 mm[Hg] DO John Ervin Work Phone: [facility] 07-26-2023 04:12-0500 Body weight 101.4 kg DO John Ervin Work Phone: [facility] 07-24-2023 13:20-0500 Body height 172.72 cm DO John Ervin Work Phone: [facility] 07-18-2023 22:21-0500 Body temperature 97.8 [degF] DO John Ervin Work Phone: [facility] 07-18-2023 22:21-0500 Diastolic blood pressure 82 mm[Hg] DO John Ervin Work Phone: [facility] 07-18-2023 22:21-0500 Heart rate 92 /min DO John Ervin Work Phone: [facility] 07-18-2023 22:21-0500 Respiratory rate 18 /min DO John Ervin Work Phone: [facility] 07-18-2023 22:21-0500 SaO2% (BldA) [Mass fraction] 99 % DO John Ervin Work Phone: [facility] 07-18-2023 22:21-0500 Systolic blood pressure 154 mm[Hg] DO John Ervin Work Phone: [facility] 07-18-2023 12:55-0500 Inhaled oxygen flow rate 6 L/min DO John Ervin Work Phone: [facility] 07-18-2023 11:21-0500 Body mass index (BMI) [Ratio] 32.8 kg/m2 DO John Ervin Work Phone: [facility] 07-18-2023 10:45-0500 Body height 172.72 cm DO John Ervin Work Phone: [facility] 07-18-2023 09:44-0500 Body weight 98 kg DO John Ervin Work Phone: [facility] 07-10-2023 22:48-0500 Body height 172.72 cm DO John Ervin Work Phone: [facility] 07-10-2023 22:48-0500 Body temperature 97.8 [degF] DO John Ervin Work Phone: [facility] 07-10-2023 22:48-0500 Body weight 92.2 kg DO John Ervin Work Phone: [facility] 07-10-2023 22:48-0500 Diastolic blood pressure 82 mm[Hg] DO John Ervin Work Phone: [facility] 07-10-2023 22:48-0500 Heart rate 82 /min DO John Ervin Work Phone: [facility] 07-10-2023 22:48-0500 Respiratory rate 16 /min DO John Ervin Work Phone: [facility] 07-10-2023 22:48-0500 SaO2% (BldA) [Mass fraction] 100 % DO John Ervin Work Phone: [facility] 07-10-2023 22:48-0500 Systolic blood pressure 144 mm[Hg] DO John Ervin Work Phone: [facility] 07-10-2023 15:53-0500 Body height 172.7 cm Rohan Han DPM Work Phone: [facility] 07-10-2023 15:53-0500 Body mass index (BMI) [Ratio] 35.12 kg/m2 Rohan Han DPM Work Phone: [facility] 07-10-2023 15:53-0500 Body weight 104.78 kg Rohan Han DPM Work Phone: [facility] 07-10-2023 15:53-0500 Diastolic blood pressure 81 mm[Hg] Rohan Han DPM Work Phone: [facility] 07-10-2023 15:53-0500 Heart rate 79 /min Rohan Han DPM Work Phone: [facility] 07-10-2023 15:53-0500 Systolic blood pressure 125 mm[Hg] Rohan Han DPM Work Phone: [facility] 06-26-2023 16:15-0500 Body height 172.7 cm Rohan Han DPM Work Phone: [facility] 06-26-2023 16:15-0500 Body mass index (BMI) [Ratio] 35.12 kg/m2 Rohan Han DPM Work Phone: [facility] 06-26-2023 16:15-0500 Body weight 104.78 kg Rohan Han DPM Work Phone: [facility] 06-26-2023 16:15-0500 Diastolic blood pressure 80 mm[Hg] Rohan Han DPM Work Phone: [facility] 06-26-2023 16:15-0500 Heart rate 79 /min Rohan Han DPM Work Phone: [facility] 06-26-2023 16:15-0500 Systolic blood pressure 133 mm[Hg] Rohan Han DPM Work Phone: [facility] 06-26-2023 13:15-0500 Body height 172.72 cm Tondra Mapus Other [facility] 06-26-2023 13:15-0500 Body mass index (BMI) [Ratio] 30.41 kg/m2 Tondra Mapus Other [facility] Other 06-26-2023 13:15-0500 Body weight 90.72 kg Tondra Mapus Other [facility] Other 06-26-2023 13:15-0500 Body weight 90.71 kg DO John Ervin Work Phone: [facility] 06-26-2023 13:15-0500 Diastolic blood pressure 81 mm[Hg] Tondra Mapus Other [facility] 06-26-2023 13:15-0500 Respiratory rate 18 /min Tondra Mapus Other [facility] Other 06-26-2023 13:15-0500 SaO2% (BldA) [Mass fraction] 99 % Tondra Mapus Other [facility] Other 06-26-2023 13:15-0500 Systolic blood pressure 130 mm[Hg] Tondra Mapus Other [facility] 04-30-2023 15:00-0500 Body height 172.72 cm Michael Ramírez Other [facility] 04-30-2023 15:00-0500 Body mass index (BMI) [Ratio] 30.71 kg/m2 Michael Ramírez Other [facility] Other 04-30-2023 15:00-0500 Body temperature 97 [degF] Michael Ramírez Other [facility] Other 04-30-2023 15:00-0500 Body weight 91.63 kg Michael Ramírez Other [facility] Other 04-30-2023 15:00-0500 Body weight 91.62 kg DO John Ervin Work Phone: [facility] 04-30-2023 15:00-0500 Diastolic blood pressure 94 mm[Hg] Michael Ramírez Other [facility] 04-30-2023 15:00-0500 Systolic blood pressure 161 mm[Hg] Desiree Other [facility] 04-10-2023 14:30-0500 Body height 172.72 cm Michael Ramírez Other [facility] Other 04-10-2023 14:30-0500 Body mass index (BMI) [Ratio] 30.71 kg/m2 Desiree Other [facility] Other 04-10-2023 14:30-0500 Body temperature 98.3 [degF] Michael Ramírez Other [facility] Other 04-10-2023 14:30-0500 Body weight 91.63 kg Desiree Other [facility] Other 04-10-2023 14:30-0500 Diastolic blood pressure 71 mm[Hg] Michael Ramírez Other [facility] Other 04-10-2023 14:30-0500 Systolic blood pressure 127 mm[Hg] Michael Ramírez Other [facility] Other 03-20-2023 13:00-0400 Body height 172.72 cm Tondra Mapus Other [facility] Other 03-20-2023 13:00-0400 Body mass index (BMI) [Ratio] 30.7 kg/m2 Tondra Mapus Other [facility] Other 03-20-2023 13:00-0400 Body weight 91.58 kg Tondra Mapus Other [facility] Other 03-20-2023 13:00-0400 Diastolic blood pressure 78 mm[Hg] Tondra Mapus Other [facility] Other 03-20-2023 13:00-0400 Respiratory rate 18 /min Tondra Mapus Other [facility] Other 03-20-2023 13:00-0400 SaO2% (BldA) [Mass fraction] 98 % Tondra Mapus Other [facility] Other 03-20-2023 13:00-0400 Systolic blood pressure 138 mm[Hg] Tondra Mapus Other [facility] Other 03-04-2023 11:41-0400 Body temperature 97.7 [degF] MD Tejas Stevens Work Phone: [facility] 03-04-2023 11:41-0400 Diastolic blood pressure 84 mm[Hg] MD Tejas Stevens Work Phone: [facility] 03-04-2023 11:41-0400 Heart rate 62 /min MD Tejas Stevens Work Phone: [facility] 03-04-2023 11:41-0400 Respiratory rate 12 /min MD Tejas Stevens Work Phone: [facility] 03-04-2023 11:41-0400 SaO2% (BldA) [Mass fraction] 94 % MD Tejas Stevens Work Phone: [facility] 03-04-2023 11:41-0400 Systolic blood pressure 158 mm[Hg] MD Tejas Stevens Work Phone: [facility] 03-04-2023 06:31-0400 Body weight 93.2 kg MD Tejas Stevens Work Phone: [facility] 03-03-2023 13:36-0400 Body height 172.72 cm MD Tejas Stevens Work Phone: [facility] 02-26-2023 10:56-0400 Body mass index (BMI) [Ratio] 30.4 kg/m2 MD Tejas Stevens Work Phone: [facility] 02-23-2023 16:21-0400 Diastolic blood pressure 78 mm[Hg] MD Tejas Stevens Work Phone: [facility] 02-23-2023 16:21-0400 Heart rate 70 /min MD Tejsa Stevens Work Phone: [facility] 02-23-2023 16:21-0400 Respiratory rate 16 /min MD Tejas Stevens Work Phone: [facility] 02-23-2023 16:21-0400 SaO2% (BldA) [Mass fraction] 96 % MD Tejas Stevens Work Phone: [facility] 02-23-2023 16:21-0400 Systolic blood pressure 163 mm[Hg] MD Tejas Stevens Work Phone: [facility] 02-23-2023 12:39-0400 Body temperature 97.4 [degF] MD Tejas Stevens Work Phone: [facility] 02-23-2023 11:43-0400 Body height 172.72 cm MD Tejas Stevens Work Phone: [facility] 02-23-2023 11:43-0400 Body weight 101.15 kg MD Tejas Stevens Work Phone: [facility] 02-03-2023 10:30-0400 Body height 172.72 cm Pamela Berry Other [facility] Other 02-03-2023 10:30-0400 Body mass index (BMI) [Ratio] 33.6 kg/m2 Pamela Berry Other [facility] Other 02-03-2023 10:30-0400 Body temperature 96.5 [degF] Pamela Berry Other [facility] Other 02-03-2023 10:30-0400 Body weight 100.25 kg Pamela Berry Other [facility] Other 02-03-2023 10:30-0400 Diastolic blood pressure 78 mm[Hg] Pamela Berry Other [facility] Other 02-03-2023 10:30-0400 SaO2% (BldA) [Mass fraction] 96 % Pamela Berry Other [facility] Other 02-03-2023 10:30-0400 Systolic blood pressure 118 mm[Hg] Pamela Berry Other [facility] Other 01-13-2023 18:40-0400 Diastolic blood pressure 91 mm[Hg] MD Tejas Stevens Work Phone: [facility] 01-13-2023 18:40-0400 Heart rate 84 /min MD Tejas Stevens Work Phone: [facility] 01-13-2023 18:40-0400 Respiratory rate 16 /min MD Tejas Stevens Work Phone: [facility] 01-13-2023 18:40-0400 SaO2% (BldA) [Mass fraction] 97 % MD Tejas Stevens Work Phone: [facility] 01-13-2023 18:40-0400 Systolic blood pressure 146 mm[Hg] MD Tejas Stevens Work Phone: [facility] 01-13-2023 13:22-0400 Body height 172.72 cm MD Tejas Stevens Work Phone: [facility] 01-13-2023 13:22-0400 Body weight 100.24 kg MD Tejas Stevens Work Phone: [facility] 01-10-2023 10:00-0400 Body height 172.72 cm Dhruv Bautista Other [facility] Other 01-10-2023 10:00-0400 Body mass index (BMI) [Ratio] 33.6 kg/m2 Dhruv Richardsonrenilay Other [facility] Other 01-10-2023 10:00-0400 Body temperature 97.3 [degF] Dhruv Bautista Other [facility] Other 01-10-2023 10:00-0400 Body weight 100.25 kg Dhruv Bautista Other [facility] Other 01-10-2023 10:00-0400 Diastolic blood pressure 74 mm[Hg] Dhruv Bautista Other [facility] Other 01-10-2023 10:00-0400 SaO2% (BldA) [Mass fraction] 96 % Dhruv Richardsonrer Other [facility] Other 01-10-2023 10:00-0400 Systolic blood pressure 118 mm[Hg] Dhruv Zuritaehrer Other [facility] Other 07-24-2022 14:45-0500 Body height 172.72 cm Louise Sotelo Other [facility] Other 07-24-2022 14:45-0500 Body mass index (BMI) [Ratio] 34.63 kg/m2 Tondra Mapus Other [facility] Other 07-24-2022 14:45-0500 Body weight 103.33 kg Tondra Mapus Other [facility] Other 07-24-2022 14:45-0500 Diastolic blood pressure 69 mm[Hg] Tondra Mapus Other [facility] Other 07-24-2022 14:45-0500 Respiratory rate 18 /min Tondra Mapus Other [facility] Other 07-24-2022 14:45-0500 SaO2% (BldA) [Mass fraction] 96 % Tondra Mapus Other [facility] Other 07-24-2022 14:45-0500 Systolic blood pressure 108 mm[Hg] Tondra Mapus Other [facility] Other 02-06-2022 15:15-0400 Body height 172.72 cm Tondra Mapus Other [facility] Other 02-06-2022 15:15-0400 Body mass index (BMI) [Ratio] 35.58 kg/m2 Tondra Mapus Other [facility] Other 02-06-2022 15:15-0400 Body weight 106.14 kg Tondra Mapus Other [facility] Other 02-06-2022 15:15-0400 Diastolic blood pressure 103 mm[Hg] Tondra Mapus Other [facility] Other 02-06-2022 15:15-0400 Respiratory rate 20 /min Tondra Mapus Other [facility] Other 02-06-2022 15:15-0400 SaO2% (BldA) [Mass fraction] 98 % Tondra Mapus Other [facility] Other 02-06-2022 15:15-0400 Systolic blood pressure 173 mm[Hg] Tondra Mapus Other [facility] Other 08-23-2021 14:00-0400 Body height 172.72 cm Tondra Mapus Other [facility] Other 08-23-2021 14:00-0400 Body mass index (BMI) [Ratio] 36.34 kg/m2 Tondra Mapus Other [facility] Other 08-23-2021 14:00-0400 Body weight 108.41 kg Tondra Mapus Other [facility] Other 08-23-2021 14:00-0400 Diastolic blood pressure 106 mm[Hg] Tondra Mapus Other [facility] Other 08-23-2021 14:00-0400 Respiratory rate 20 /min Tondra Mapus Other [facility] Other 08-23-2021 14:00-0400 SaO2% (BldA) [Mass fraction] 97 % Tondra Mapus Other [facility] Other 08-23-2021 14:00-0400 Systolic blood pressure 169 mm[Hg] Tondra Mapus Other [facility] Other 04-03-2021 15:00-0500 Body height 172.72 cm Tondra Mapus Other [facility] Other 04-03-2021 15:00-0500 Body mass index (BMI) [Ratio] 31.62 kg/m2 Tondra Mapus Other [facility] Other 04-03-2021 15:00-0500 Body weight 94.35 kg Tondra Mapus Other [facility] Other 04-03-2021 15:00-0500 Diastolic blood pressure 90 mm[Hg] Tondra Mapus Other [facility] Other 04-03-2021 15:00-0500 Respiratory rate 20 /min Tondra Mapus Other [facility] Other 04-03-2021 15:00-0500 SaO2% (BldA) [Mass fraction] 98 % Tondra Mapus Other [facility] Other 04-03-2021 15:00-0500 Systolic blood pressure 156 mm[Hg] Tondra Mapus Other [facility] Other 02-22-2021 12:00-0400 Body height 172.72 cm Tondra Mapus Other [facility] Other 02-22-2021 12:00-0400 Body mass index (BMI) [Ratio] 30.35 kg/m2 Tondra Mapus Other [facility] Other 02-22-2021 12:00-0400 Body weight 90.54 kg Tondra Mapus Other [facility] Other 02-22-2021 12:00-0400 Diastolic blood pressure 93 mm[Hg] Tondra Mapus Other [facility] Other 02-22-2021 12:00-0400 Respiratory rate 18 /min Tondra Mapus Other [facility] Other 02-22-2021 12:00-0400 SaO2% (BldA) [Mass fraction] 99 % Tondra Mapus Other [facility] Other 02-22-2021 12:00-0400 Systolic blood pressure 169 mm[Hg] Tondra Mapus Other [facility] Other Encounters Encounter Date Encounter Type Care Provider Facility Start: 01-27-2024 End: 01-27-2024 ambulatory TEJAS NADERER Not Available Start: 01-21-2024 End: 01-21-2024 ambulatory [facility] Start: 01-16-2024 End: 01-16-2024 ambulatory [facility] Start: 01-13-2024 End: 01-13-2024 ambulatory TEJAS NADERER Not Available Start: 01-06-2024 End: 01-06-2024 ambulatory [facility] Work Phone: Start: 01-06-2024 End: 01-06-2024 Patient encounter procedure [facility] Work Phone: Start: 01-05-2024 End: 01-05-2024 ambulatory [facility] Work Phone: Start: 01-05-2024 End: 01-05-2024 Patient encounter procedure [facility] Work Phone: Start: 01-01-2024 End: 01-01-2024 ambulatory ROHAN HAN Not Available Start: 12-29-2023 End: 12-29-2023 ambulatory [facility] Start: 12-23-2023 Non-patient / Non-visit [facility] Work Phone: Start: 12-02-2023 End: 12-02-2023 ambulatory TEJAS STEVENS Not Available Start: 11-06-2023 End: 11-06-2023 ambulatory TEJAS STEVENS Not Available Start: 11-04-2023 End: 11-04-2023 ambulatory MD Tejas Stevens Work Phone: [facility] Work Phone: Start: 11-04-2023 End: 11-04-2023 Patient encounter procedure MD Tejas Stevens Work Phone: [facility] Pulmonary Disease Work Phone: Start: 10-29-2023 End: 10-29-2023 ambulatory TEJAS STEVENS Not Available Start: 10-21-2023 End: 10-21-2023 ambulatory MD Tejas Stevens Work Phone: [facility] Work Phone: Start: 10-21-2023 End: 10-21-2023 Patient encounter procedure MD Tejas Stevens Work Phone: [facility] Nephrology [facility] Work Phone: Start: 10-21-2023 End: 10-21-2023 MD Tejas Stevens Work Phone: [facility] Nephrology [facility] Work Phone: Start: 10-17-2023 End: 10-17-2023 ambulatory [facility] Start: 10-02-2023 End: 10-02-2023 ambulatory TEJAS STEVENS Not Available Start: 09-29-2023 End: 09-29-2023 ambulatory MD Tejas Stevens Work Phone: [facility] Work Phone: Start: 09-29-2023 End: 09-29-2023 Patient encounter procedure MD Tejas Stevens Work Phone: [facility] Work Phone: Start: 09-29-2023 End: 09-29-2023 MD Tejas Stevens Work Phone: [facility] Work Phone: Start: 09-26-2023 End: 09-26-2023 ambulatory TEJAS STEVENS [facility] Start: 09-25-2023 End: 09-25-2023 ambulatory ROHAN HAN Not Available Start: 08-23-2023 End: 08-23-2023 Non-patient / Non-visit MD Tejas Stevens Work Phone: [facility] Work Phone: Start: 08-23-2023 End: 08-23-2023 DO John Ervin Work Phone: [facility] Work Phone: Start: 08-22-2023 End: 08-23-2023 Non-patient / Non-visit MD Tejas Stevens Work Phone: [facility] Nephrology Work Phone: Start: 08-22-2023 End: 08-23-2023 DO John Ervin Work Phone: [facility] Work Phone: Start: 08-17-2023 End: 08-23-2023 Non-patient / Non-visit MD Tejas Stevens Work Phone: [facility] Work Phone: Start: 08-17-2023 End: 08-23-2023 DO John Ervin Work Phone: [facility] Work Phone: Start: 08-16-2023 End: 08-23-2023 Non-patient / Non-visit MD Tejas Stevens Work Phone: [facility] Work Phone: Start: 08-16-2023 End: 08-23-2023 DO John Ervin Work Phone: [facility] Work Phone: Start: 08-15-2023 End: 08-23-2023 Non-patient / Non-visit MD Tejas Stevens Work Phone: [facility] Work Phone: Start: 08-15-2023 End: 08-23-2023 DO John Ervin Work Phone: [facility] Work Phone: Start: 08-15-2023 End: 08-23-2023 Non-patient / Non-visit MD Tejas Stevens Work Phone: [facility] Work Phone: Start: 08-15-2023 End: 08-23-2023 DO John Ervin Work Phone: [facility] Work Phone: Start: 08-13-2023 End: 08-13-2023 ambulatory DARRYL BRITT Not Available Start: 08-09-2023 End: 08-23-2023 Non-patient / Non-visit MD Tejas Stevens Work Phone: [facility] Work Phone: Start: 08-09-2023 End: 08-23-2023 DO John Ervin Work Phone: [facility] Pulmonary Disease Work Phone: Start: 08-08-2023 End: 08-23-2023 Non-patient / Non-visit MD Tejas Stevens Work Phone: [facility] Nephrology Work Phone: Start: 08-08-2023 End: 08-23-2023 DO John Ervin Work Phone: [facility] Nephrology Work Phone: Start: 08-08-2023 DO John Ervin Work Phone: [facility] Work Phone: Start: 08-04-2023 End: 08-23-2023 MD Tejas Stevens Work Phone: [facility] Work Phone: Start: 08-02-2023 End: 08-23-2023 DO John Ervin Work Phone: [facility] Pulmonary Disease Work Phone: Start: 08-01-2023 End: 08-23-2023 DO John Ervin Work Phone: [facility] Nephrology Work Phone: Start: 08-01-2023 End: 08-23-2023 DO John Ervin Work Phone: [facility] Cardiology Work Phone: Start: 08-01-2023 End: 08-23-2023 DO John Ervin Work Phone: [facility] Work Phone: Start: 08-01-2023 End: 08-23-2023 Evaluation and management of inpatient DO John Ervin Work Phone: [facility] Work Phone: Start: 08-01-2023 End: 08-23-2023 DO John Ervin Work Phone: [facility] Work Phone: Start: 07-28-2023 MD Tejas locke [facility] Work Phone: Start: 07-26-2023 DO John rEvin Work Phone: [facility] Work Phone: Start: 07-22-2023 DO John Ervin Work Phone: [facility] Ne[facility]rology Work Phone: Start: 07-21-2023 DO John Ervin Work Phone: [facility] Infectious Disease Work Phone: Start: 07-19-2023 DO John Ervin Work Phone: [facility] Work Phone: Start: 07-18-2023 End: 07-18-2023 Departed Referred DO John Ervin Work Phone: [facility]-Dialysis Work Phone: Start: 07-18-2023 End: 07-18-2023 DO John Ervin Work Phone: [facility]-Dialysis Work Phone: Start: 07-18-2023 End: 07-18-2023 ambulatory DO John Ervin Work Phone: [facility] Work Phone: Start: 07-15-2023 Non-patient / Non-visit DO Kane Ervin Work Phone: [facility] Nephrology Work Phone: Start: 07-15-2023 DO John Orellanauric Work Phone: [facility] Nephrology Work Phone: Start: 07-14-2023 Non-patient / Non-visit DO Kane golden Mauric Work Phone: [facility] Rehab and Spine Work Phone: Start: 07-14-2023 DO John Orellanauric Work Phone: [facility] Rehab and Spine Work Phone: Start: 07-13-2023 Non-patient / Non-visit DO Kane n Mauric Work Phone: [facility] Work Phone: Start: 07-13-2023 DO John Orellanauric Work Phone: [facility] Work Phone: Start: 07-12-2023 Non-patient / Non-visit DO Kane golden Mauric Work Phone: [facility] Infectious Disease Work Phone: Start: 07-12-2023 DO John Ervin Work Phone: [facility] Infectious Disease Work Phone: Start: 07-11-2023 Non-patient / Non-visit DO Kane golden Mauric Work Phone: [facility] Vascular Surgery Work Phone: Start: 07-11-2023 DO John Orellanauric Work Phone: [facility] Vascular Surgery Work Phone: Start: 07-10-2023 Non-patient / Non-visit DO Kane n Mauric Work Phone: [facility] Work Phone: Start: 07-10-2023 End: 07-26-2023 Evaluation and management of inpatient DO Mauric Work Phone: [facility] Work Phone: Start: 07-10-2023 End: 07-26-2023 DO John Ervin Work Phone: [facility] Work Phone: Start: 07-10-2023 End: [...] Toe pain, right Start: 06-26-2023 (DM) Diabetes Tondra Ashleigh [facility] Start: 06-26-2023 End: 06-26-2023 Discharged Recurring DO John Ervin Work Phone: [facility] Work Phone: Start: 06-26-2023 End: 06-26-2023 DO John Ervin Work Phone: [facility] Work Phone: Start: 06-26-2023 End: 06-26-2023 ambulatory DO John Ervin Work Phone: [facility] Other Start: 06-26-2023 End: 06-26-2023 Patient encounter procedure DO John Ervin Work Phone: [facility]- Start: 06-26-2023 End: 06-26-2023 DO John Ervin Work Phone: [facility]- Start: 06-19-2023 End: 06-19-2023 ambulatory ROHAN A BROWN Not Available Start: 06-12-2023 End: 06-12-2023 ambulatory ROHAN A BROWN Not Available Start: 05-29-2023 End: 05-29-2023 ambulatory ROHAN A BROWN Not Available Start: 05-22-2023 End: 05-22-2023 ambulatory ROHAN A BROWN Not Available Start: 05-15-2023 End: 05-15-2023 ambulatory ROHAN A BROWN Not Available Start: 05-12-2023 End: 05-12-2023 ambulatory [facility] Start: 05-01-2023 End: 05-01-2023 ambulatory ROHAN A BROWN Not Available Start: 04-30-2023 End: 04-30-2023 ambulatory Michael Ramírez Other [facility] Other Start: 04-30-2023 Office outpatient vi sit 25 minutes Michael Ramírez [facility] Start: 04-30-2023 End: 04-30-2023 Patient encounter procedure DO John Ervin Work Phone: [facility] Work Phone: Start: 04-22-2023 End: 04-22-2023 ambulatory ROHAN A BROWN Not Available Start: 04-16-2023 End: 04-16-2023 ambulatory ROHAN A BROWN Not Available Start: 04-10-2023 End: 04-10-2023 ambulatory Michael Ramírez Other [facility] Other Start: 04-10-2023 Office outpatient vi sit 25 minutes Michael Ramírez [facility] Start: 04-09-2023 End: 04-09-2023 ambulatory ROHAN HAN Not Available Start: 03-31-2023 End: 03-31-2023 ambulatory MD Tejas Stevens Work Phone: [facility] Work Phone: Start: 03-31-2023 End: 03-31-2023 Patient encounter procedure MD Tejas Stevens Work Phone: [facility]-Lab [facility] Work Phone: Start: 03-25-2023 End: 03-25-2023 Patient encounter procedure MD Tejas Stevens Work Phone: [facility]-MRI [address] Work Phone: Start: 03-25-2023 End: 03-25-2023 ambulatory MD Tejas Stevens Work Phone: [facility] Work Phone: Start: 03-24-2023 End: 03-24-2023 ambulatory MD Tejas Stevens Work Phone: [facility] [facility] Work Phone: Start: 03-24-2023 End: 03-24-2023 Patient encounter procedure MD Tejas Stevens Work Phone: [facility] Work Phone: Start: 03-20-2023 Registered Recurring MD Tejas jerome Work Phone: [facility] Work Phone: Start: 03-20-2023 (PUMP/CGM) Pump / Sensor Tondra Analyus [facility] Start: 03-20-2023 End: 03-20-2023 ambulatory Louise Sotelo Other [facility] Other Start: 03-17-2023 Telephone encounter Louise [facility] Start: 03-17-2023 End: 03-17-2023 ambulatory Michael Ramírez [facility] Other Start: 03-17-2023 End: 03-17-2023 Patient encounter procedure MD Tejas Stevens Work Phone: [facility] Work Phone: Start: 03-10-2023 Telephone encounter Corrine Terrell RN [facility] Start: 03-10-2023 End: 03-10-2023 ambulatory MD Tejas Stevens Work Phone: [facility] Work Phone: Start: 03-10-2023 End: 03-10-2023 Patient encounter procedure MD Tejas Stevens Work Phone: [facility] Work Phone: Start: 02-24-2023 End: 02-24-2023 ambulatory Louise Sotelo Other [facility] Other Start: 02-24-2023 Telephone encounter Louise [facility] Start: 02-23-2023 End: 03-04-2023 Evaluation and management of inpatient MD Tejas Stevens Work Phone: [facility] Work Phone: Start: 02-03-2023 End: 02-03-2023 Patient encounter procedure Pamela Berry [facility] V[facility] Surgery Start: 02-03-2023 End: 02-03-2023 ambulatory MD Tejas Stevens Work Phone: [facility] Other Start: 01-20-2023 End: 01-20-2023 ambulatory Tondra Mapus Other [facility] Other Start: 01-20-2023 Telephone encounter Tondra Mapus [facility] Start: 01-13-2023 End: 01-13-2023 Admission to same day surgery center MD Tejas Stevens Work Phone: [facility]-Interventional Radiology Work Phone: Start: 01-13-2023 End: 01-13-2023 ambulatory Dhruv Bautista Facility:[facility] Start: 01-10-2023 End: 01-10-2023 ambulatory Dhruv Bautista Other [facility] Other Start: 01-10-2023 [facility] visit new patient Dhruv Dennison er [facility] Start: 12-19-2022 End: 12-19-2022 ambulatory Tondra Mapus Other [facility] Other Start: 12-19-2022 Telephone encounter Tondra Mapus [facility] Start: 12-02-2022 End: 12-02-2022 ambulatory Tondra Mapus Other [facility] Other Start: 12-02-2022 Telephone encounter Tondra Mapus [facility] Start: 11-06-2022 End: 11-06-2022 ambulatory Tondra Mapus Other [facility] Other Start: 11-06-2022 Telephone encounter Tondra Mapus [facility] Start: 07-24-2022 (DM) Diabetes Tondra Mapus [facility] Start: 07-24-2022 End: 07-24-2022 ambulatory Tondra Mapus Other [facility] Other Start: 07-24-2022 Telephone encounter Tondra Mapus [facility] Start: 07-23-2022 End: 07-23-2022 ambulatory GARIMA DAVID . Facility:[facility] Start: 07-16-[address] TEJAS STEVENS [facility] ity:[facility]1 Start: 03-27-2022 End: 03-27-2022 ambulatory Tondra Mapus Other [facility] Other Start: 03-27-2022 Telephone encounter Tondra Mapus [facility] Start: 02-06-2022 (PUMP/CGM) Pump / Sensor Tondra Mapus [facility] Start: 02-06-2022 End: 02-06-2022 ambulatory Tondra Mapus Other [facility] Other Start: 12-04-2021 End: 12-04-2021 ambulatory Tondra Mapus Other [facility] Other Start: 12-04-2021 Telephone encounter Tondra Mapus [facility] Start: 10-11-2021 End: 10-11-2021 ambulatory Tondra Mapus Other [facility] Other Start: 10-11-2021 Telephone encounter Tondra Mapus [facility] Start: 09-27-2021 End: 09-27-2021 ambulatory Tondra Mapus Other [facility] Other Start: 09-27-2021 Telephone encounter Tondra Mapus [facility] Start: 08-23-2021 (PUMP/CGM) Pump / Sensor Tondra Mapus [facility] Start: 08-23-2021 End: 08-23-2021 ambulatory Tondra Mapus Other [facility] Other Start: 06-22-2021 End: 06-22-2021 ambulatory Tondra Mapus Other [facility] Other Start: 06-22-2021 Telephone encounter Tondra Mapus [facility] Start: 04-03-2021 (DM) Diabetes Tondra Ashleigh [facility] Start: 04-03-2021 End: 04-03-2021 ambulatory Tondra Mapus Other [facility] Other Start: 03-30-2021 End: 03-30-2021 ambulatory Tondra Mapus Other [facility] Other Start: 03-30-2021 Telephone encounter Tondra Mapus In[facility] Start: 03-23-2021 Telephone encounter Tondra Analyus [facility] Start: 03-20-2021 Telephone encounter Tondra Analyus [facility] Start: 02-22-2021 (DM) Diabetes Tondra Ashleigh [facility] Procedures Date Procedure Procedure Detail Performing Clinician Start: 01-21-2024 Follow-up visit Follow-up SNEHAL VARGAS Start: 08-21-2023 Urine culture MD Tejas Stevens [...] of abdomen and pelvis without contrast DO John Ervin Work Phone: Start: 08-12-2023 CT of chest without contrast DO John Hdez jos Work Phone: Start: 08-12-2023 CT of left [...] transfuse now? 2 Result Comment: PERF ORMED BY:[place] [address] [address] [id number] MEDICAL DIRECTORJOSEPH GARCIA M.D. Start: 08-01-2023 Duplex scan of lower limb veins DO John Ervin Work Phone: Start: 08-01-2023 End: 08-01-2023 Plain chest X-ray DO John Ervin Work Phone: Start: 07-20-2023 Urine culture DO John Ervin Work Phone: Start: 07-18-2023 X-ray of left foot DO John Ervin Work Phone: Start: 07-18-2023 Amputation of toe DO John Ervin Work Phone: Start: 07-17-2023 Antibody screen Michael Ramírez Comment on above: Order Comment: Transfuse now? Y Number o f units to transfuse now? 1 Transfuse now? Y Number of units to transfuse now? 2 Result Comment: PERF ORMED BY:[place] [address] [address] [id number] MEDICAL DIRECTORJOSEPH GARCIA M.D. Start: 07-17-2023 Plain chest X-ray DO John Ervin Work Phone: Start: 07-17-2023 Fluoroscopic guidance DO John Ervin Work Phone: Start: 07-14-2023 Urine culture DO John Evrin Work Phone: Start: 07-13-2023 Ultrasonography of bilateral [...] for bacteria, including anaerobic screen DO John Ervni Work Phone: Start: 03-25-2023 MRI of left foot MD Tejas Stevens Work Phone: Start: 03-04-2023 Insertion of peripherally inserted central catheter MD Tejas Stevens Work Phone: Start: 02-26-2023 Aerobic microbial culture MD Tejas locke Work Phone: Start: 02-26-2023 Anaerobic microbial culture MD Tejas castillo Work Phone: Start: 02-26-2023 Investigation of transfusion reaction MD Tejas Stveens Work Phone: Start: 02-26-2023 X-ray of left [...] 05-12-2024 Adult BMI Screening Adult BMI Screening [facility] Start: 05-12-2024 Tobacco Screening Tobacco Screening [facility] Start: 12-17-2023 End: 12-17-2023 Patient encounter procedure 12/17/2023 2:15 PM EDT Office Visit [facility] [address] [place] [address] [place] [address] Snehal Vargas I, PA [facility] [place] [address] [facility] Start: 11-04-2023 Patient referral [facility] Work Phone: Start: 08-23-2023 [facility] Start: 08-21-2023 [facility] Start: 08-21-2023 Urine culture [facility] Start: 08-16-2023 Referral to infectious diseases physician [facility] Start: 08-12-2023 [facility] Start: 08-12-2023 Referral to roaster supervisor [facility] Start: 08-12-2023 Microbial culture of sputum [facility] Start: 08-11-2023 Referral to ear, nose and throat surgeon [facility] Start: 08-06-2023 Referral to neurologist [facility] Start: 08-01-2023 Bypass Trachea to Cutaneous with Tracheostomy Device, Open Approach [facility] Start: 08-01-2023 Performance of Urinary Filtration, Intermittent, Less than 6 Hours Per Day [facility] Start: 08-01-2023 Respiratory Ventilation, Greater than 96 Consecutive Hours [facility] Start: 08-01-2023 [facility] Start: 08-01-2023 End: 08-01-2023 Consultation [facility] Start: 08-01-2023 Referral to college or university faculty member [facility] Start: 07-26-2023 [facility] Start: 07-19-2023 [facility] Start: 07-18-2023 [facility] Start: 07-17-2023 [facility] Start: 07-16-2023 Referral to vascular surgeon [facility] Start: 07-15-2023 Referral to college or university faculty member [facility] Start: 07-14-2023 Referral to rehabilitation physician [facility] Start: 07-13-2023 [facility] Start: 07-13-2023 [facility] Start: 07-11-2023 [facility] Start: 07-11-2023 Referral to vascular surgeon [facility] Start: 07-11-2023 Pulse volume recorder pneumoplethysmography US arterial pvr rest LE [facility] Start: 07-11-2023 [facility] Start: 07-10-2023 Referral to infectious diseases physician [facility] Start: 07-10-2023 MRI of left foot MR foot LT wo con [facility] Start: 07-10-2023 Referral to roaster supervisor [facility] Start: 07-10-2023 Hospital admission [facility] Start: 07-10-2023 [facility] Start: 07-10-2023 End: 07-10-2023 Patient encounter procedure 07/10/2023 4:00 PM EST Office Visit [facility] [address] [place] [address] Rohan Han DPM [address] [address] [facility] Start: 07-10-2023 Bacteria identified in Blood by Culture [facility] Start: 07-10-2023 Detachment at Left Foot, Partial 1st Ray, Open Approach [facility] Start: 07-10-2023 Detachment at Left Foot, Partial 2nd Ray, Open Approach [facility] Start: 07-10-2023 Detachment at Left Foot, Partial 3rd Ray, Open Approach [facility] Start: 07-10-2023 Detachment at Left Foot, Partial 4th Ray, [facility] Approach [facility] Start: 07-10-2023 Detachment at Left Foot, Partial 5th Ray, [facility] Approach [facility] Start: 07-10-2023 Insertion of Infusion Device into Upper Vein, Percutaneous Approach [facility] Start: 07-10-2023 Superficial Wound Culture Superficial Wound Culture [facility] Start: 07-09-2023 End: 07-09-2023 Patient encounter procedure 07/09/2023 1:50 PM EST Office Visit [facility] [address] [place] [id number] Rohan Han DPM [address] [address] [facility] Start: 07-02-2023 End: 07-02-2023 Patient encounter procedure 07/02/2023 8:00 AM EST Procedure Visit [facility] Rohan Han DPM [address] [address] [facility] Start: 03-04-2023 [facility] Start: 02-23-2023 Referral to vascular surgeon [facility] Start: 02-23-2023 Referral to infectious diseases physician [facility] Start: 02-23-2023 Referral to roaster supervisor [facility] Start: 02-23-2023 Hospital admission [facility] Start: 02-23-2023 [facility] Start: 02-23-2023 Bacteria identified in Blood by Culture [facility] Start: 02-23-2023 Detachment at Left Foot, Partial 5th Ray, Open Approach Detachment at Left Foot, Partial 5th Ray, Open Approach [facility] Start: 02-23-2023 Insertion of Infusion Device into Superior Vena Cava, Percutaneous Approach Insertion of Infusion Device into Superior Vena Cava, Percutaneous Approach [facility] Start: 01-24-2023 Influenza vaccination [facility] Start: 01-13-2023 [facility] Start: 12-20-2016 Fall Risk Screening Fall Risk Screening [facility] Start: 12-20-1970 Administration of varicella zoster vaccine Zoster (Shingles) Vaccine (1 of 2) [facility] Start: 12-20-1970 DTaP,Tdap and Td Vaccines (1 - Tdap) DTaP,Tdap and Td Vaccines (1 - Tdap) [facility] Start: 12-20-1970 Urine screening for protein Diabetes: Urine Protein Screening [facility] Start: 12-20-1969 Adult BMI Follow Up Plan Adult BMI Follow Up Plan [facility] Start: 1963 Depression Screening Depression Screening [facility] Start: 12-20-1961 Glaucoma screening Diabetes: Retinopathy Screening [facility] Start: 12-20-1957 Pneumococcal Vaccine: 65+ Years (1 - PCV) Pneumococcal Vaccine: 65+ Years (1 - PCV) [facility] Start: 12-20-1957 Pneumococcal Vaccine: 65+ Years (1 of 2 - PCV) Pneumococcal Vaccine: 65+ Years (1 of 2 - PCV) [facility] Start: 1950 Hemoglobin A1c measurement Diabetes: Hemoglobin A1C [facility] Start: 1950 Medicare Annual Wellness (AWV) Medicare Annual Wellness (AWV) [facility] Start: 1950 Medicare Annual Wellness Visit Medicare Annual Wellness Visit [facility] Start: 1950 Screening for malignant neoplasm of colon [facility] Start: 1950 Tobacco Counseling Tobacco Counseling [facility] Anion gap measurement [facility] Bacteria identified in Unspecified specimen by Aerobe culture [facility] Basophils [#/volume] in Blood by Automated count [facility] Basophils/100 leukoc ytes in Blood by Automated count [facility] Comprehensive metabo lic 1999 panel - Serum or Plasma [facility] Comprehensive metabo lic 1999 panel - Serum or Plasma [facility] Eosinophils/100 leuk ocytes in Blood by Automated count [facility] Erythrocyte distribu tion width [Ratio] by Automated count [facility] Erythrocytes [#/volu me] in Blood [facility] Glucose measurement estimated from glycated hemoglobin [facility] Hematocrit [Volume F raction] of Blood [facility] Hemoglobin [Mass/vol ume] in Blood [facility] Immunofixation for Urine [facility] Immunofixation for Urine [facility] Leukocytes [#/volume ] corrected for nucleated erythrocytes in Blood by Automated coun [facility] Leukocytes [#/volume] in Blood [facility] Lymphocytes [#/volum e] in Blood by Automated count [facility] Lymphocytes/100 leuk ocytes in Blood by Automated count [facility] MCH [Entitic mass] b y Automated count [facility] MCHC [Mass/volume] b y Automated count [facility] MCV [Entitic volume] by Automated count [facility] Monocytes [#/volume] in Blood by Automated count [facility] Monocytes/100 leukoc ytes in Blood by Automated count [facility] Neutrophils [#/volum e] in Blood by Automated count [facility] Neutrophils/100 leuk ocytes in Blood by Automated count [facility] Nucleated erythrocyt es [Presence] in Blood by Automated count [facility] Patient Education [facility] Work Phone: Patient referral [facility] Work Phone: Platelet mean volume [Entitic volume] in Blood by Automated count [facility] Platelets [#/volume] in Blood [facility] Protein [Mass/time] in 24 hour Urine [facility] Renal function 1999 panel - Serum or Plasma [facility] Renal function 1999 panel - Serum or Plasma [facility] Payers Date Payer Category Payer Unknown [employer] [id number] 2023-Present [address] [place] [address] [id number] 2023 Medicare [id number] 2023 Medicare [id number] 2023 Unknown [id number] 2019 Medicare ANTHEM MEDICARE ANTHEM MEDICARE ADVANTAGE [id number] 2019-Present [phone] [address] [place] [address] [id number] 2018 Self-pay [id number] 2018 Unknown [id number] 2016 Medicare [id number] 1959 Medicare [id number] 2.16.840.1.945462.19 1951 Unknown [id number] 2.16.840.1.705080.3.579.2.593 1951 Unknown [id number] .16.840.1.523338.3.579.2.593 1951 Unknown [id number] 2.16.840.1.722123.3.579.2.1286 1951 Unknown [id number] 2.16.840.1.925153.3.579.2.128 1951 Unknown [id number] 2.16.840.1.889518.3.579.2.128 1951 Unknown [id number] 2.16.840.1.808321.3.579.2.1285 1951 Unknown [id number] 2.16.840.1.898747.3.579.2.128 1951 Unknown [id number] 2.16.840.1.231296.3.579.2.1258 1951 Unknown [id number] 2.16.840.1.172597.3.579.2.1258 1951 Unknown [id number] 2.16.840.1.196404.3.579.2.1258 1951 Unknown [id number] 2.16840.1.338879.3.579.2.1258 1951 Unknown [id number] 2.16.840.1.272865.3.579.2.1258 1951 Unknown [id number] 2.16.840.1.094116.3.579.2.1258 1951 Unknown [id number] 2.16.840.1.017626.3.579.2.1258 1951 Unknown [id number] 2.16.840.1.926908.3.579.2.1258 1951 Unknown [id number] 2.16.840.1.047843.3.579.2.1258 1951 Unknown [id number] 2.16.840.1.417840.3.579.2.1258 1951 Unknown [id number] 2.16.840.1.193255.3.579.2.1258 1951 Unknown [id number] 2.16.840.1.239606.3.579.2.125 1951 Unknown [id number] 2.16.840.1.614489.3.579.2.1258 1951 Unknown [id number] 2.16.840.1.295772.3.579.2.1258 1951 Unknown [id number] 2.16.840.1.571046.3.579.2.1258 1951 Unknown [id number] 2.16.840.1.712527.3.579.2.1258 1951 Unknown [id number] 2.16.840.1.954583.3.579.2.1258 1951 Unknown [id number] 2.16.840.1.179523.3.579.2.1258 1951 Unknown [id number] 2.16.840.1.193248.3.579.2.1258 1951 Unknown [id number] 2.16.840.1.763220.3.579.2.1258 1951 Unknown [id number] 2.16.840.1.141474.3.579.2.1259 Unknown [id number] Unknown [id number] 2.16.840.1.614763.3.579.2.531 Unknown [id number] 2.16.840.1.380910.3.579.2.531 Unknown [id number] 2.16.840.1.176285.3.579.2.531 Unknown [id number] 2.16.840.1.526595.3.579.2.531 Unknown [id number] 2.16.840.1.113866.3.579.2.531 Unknown [id number] 2.16.840.1.260189.3.579.2.531 Unknown [id number] 2.16.840.1.531826.3.579.2.531 Unknown [id number] 2.16.840.1.236711.3.579.2.531 Unknown [id number] 2.16840.1.751696.3.579.2.531 Unknown [id number] 2.16.840.1.408196.3.579.2.531 Unknown [id number] 2.840.1.602920.3.579.2.531 Unknown [id number] 2.16840.1.293874.3.579.2.531 Social History Date Type Detail Facility Unknown if ever smoked [facility] Other Start: 05-12-2023 End: 07-10-2023 Sex Assigned At [facility] Start: 1950 Sex Assigned At Male F [facility] Start: 02-23-2023 Tobacco smoking status [facility] Smoker (finding) [facility] Start: 02-26-2023 End: 08-17-2023 Tobacco smoking status [facility] Current Light tobacco smoker [facility] Start: 06-06-2022 End: 02-13-2023 Tobacco smoking status [facility] Occasional tobacco smoker [facility] History of tobacco use Cigar Smoker [facility] Start: 06-06-2022 Tobacco use and exposure Smokeless tobacco non-user [facility] Start: 12-04-2022 End: 07-10-2023 Alcohol intake Ex-drinker (finding) [facility] Start: 05-12-2023 End: 07-10-2023 History of Social function [facility] Housing Instability Unknown [facility] Start: 05-22-2022 Tobacco Comment 2 per day [facility] Start: 1950 Sex Assigned At Not on file P [facility] Start: 02-13-2023 Tobacco use and exposure User of smokeless tobacco [facility] Start: 01-02-2023 Alcohol Comment caffeine yes t yper: chocolate, coffee [facility] Start: 07-02-2023 Alcohol Comment caffeine yes t ype: chocolate, coffee [facility] Start: 07-10-2023 End: 01-06-2024 Tobacco smoking status [facility] Ex-smoker (finding) [facility] NEGATED: Highlighted rowStart: NATALIE History of tobacco use Passive smoker [facility] Medical Equipment Procedure Code Equipment Code Equipment Origin al Text Equipment Identifier Dates Wound debridement [id number] FDA Start: 02-26-2023 Fluoroscopic guidance for insertion of tunnelled dialysis catheter [id number] FDA Start: 07-17-2023 Start: 08-16-2013 Lens Iol Ultrase rt 18.0d - [id number] - [id number] Start: 06-06-2022 Lens Iol Ultrase rt 18.0d - [id number] - [id number] Start: 06-20-2022 Blood Sugar Diagnostic (Onetouch Ultra Test) strip Start: 01-05-2024 Blood Sugar Diagnostic (Onetouch Ultra Test) strip Start: 01-05-2024 Goals Date Patient Goal Desired Activity /State Functional Status Date Assessment Result Facility 08-23-2023 Functional status Patient at Baseline [facility] Work Phone: 07-26-2023 Functional status Patient at Baseline [facility] Work Phone: 07-10-2023 Functional status Dressing Patient at [facility] Work Phone: 03-04-2023 Functional status Patient at Baseline [facility] Work Phone: Mental Status Date Assessment Result Facility 08-23-2023 Cognitive function Patient at Baseline [facility] Work Phone: 07-26-2023 Cognitive function Patient at Baseline [facility] Work Phone: 07-10-2023 Cognitive function Cognitive Sta tus Patient at Baseline [facility] Work Phone: 03-04-2023 Cognitive function Cognitive Sta tus Patient at Baseline [facility] Work Phone: Clinical Notes 01-24-2013 to 12-29-2023 Note Date & Type Note Facility 12-29-2023 Note [facility] Cardiology Clinic Note Chief Complaint: Patient here for [facility] follow up for new onset CHF. He was seen as inpatient consult by Dr. Prater while inpatient. He takes Plavix for hx of LE angiogram about 1 year ago at [facility], but denies stenting. Denies chest pain and SOB - unless he really pushes it . C/o LE edema and weight gain. Had labs last week. HPI: Chelsea Diego JR is a 73 y.o. male [...] a day - will defer to his college or university faculty member and/or tobacco classer I have asked him to weigh himself daily at the same time in the morning; if he notices any increasing weight by 3 pounds or more he is to take an extra dose of Bumex Would recommend following up with nephrology and endocrinology He is to follow-up with his vascular surgeon in [facility] in 4-6 months or sooner as needed Ronel Aquino MD, MPH, [facility] Interventional Cardiology Pager Email: [email or web address] 08-23-2023 Progress note Note Date/Time August 23, 2023 11:55am [facility] [address] [place] [address] Nephrology Progress Note Signed Patient: Chelsea Diego JR MR#: [id number] : 1950 Acct:[id number] Age/Sex: 72 / M Adm Date: 4 Loc: Room: [address] [place] [address] Type: ADM IN Attending Dr: Arnaldo Thomas [...] evidence of recovery. Patient was [facility] to [facility]. Patient presented to [place] ER from his nursing facility with severe shortness of breath requiring intubation. Chest x-ray showed bilateral pulmonary infiltrate with possible pulmonary edema. Subsequently the patient was transferred to [facility] and he continues to be on [...] 08/22/23 10:14 FiO2 30 08/23/23 11:00 Narrative: Constitutional: Looks ill however [...] / 125 50 / 50 Balance / 1200 / 1200 1093 / 1093 2078 / 2078 Weight 84.6 kg 83.4 kg 85.8 kg 87.3 kg Meds and Allergies Meds: Active Medications Acetaminophen (Acetaminophen 650 Mg/20.3 Ml Oral.Susp) 650 mg NG-TUBE Q6H PRN PRN Reason: Fever or Pain Stop: 08/12/24 13:59 Last Admin: 08/23/23 08:27 Dose: 650 mg Albuterol (Albuterol Hfa 200 Puff/18 Gm Inhaler) 6 puff VENT Q6HR KCAI Stop: 07/31/24 11:59 Last Admin: 08/23/23 11:01 [...] Polysorbat 60 Mcg/Ml Vial) 60 mcg [facility]; Protocol Stop: 08/12/24 09:04 Last Admin: 08/20/23 13:47 Dose: 60 mcg Dextrose (Dextrose 50% In Water 25 Gm/50 Ml Syringe) 0 gm IV-PUSH PRN PRN PRN Reason: Hypoglycemia Stop: 07/31/24 08:04 Last Admin: 08/19/23 05:25 Dose: 25 gm Diclofenac Sodium (Diclofenac Sodium 1% Gel 100 Gm Tube) 4 gm TOPICAL QID KACI Stop: 08/16/24 17:59 Last Admin: 08/23/23 08:28 Dose: 4 gm Fentanyl Citrate (Fentanyl/Pf 100 Mcg/2 Ml Vial) 50 mcg IV-PUSH Q2H PRN PRN Reason: tracheostomy pain Last Admin: 08/22/23 19:40 Dose: 50 mcg Ferric Sodium Gluconate Complex (Sodium Ferric Gluconat/Sucrose 62.5 Mg/5 Ml Vial) 125 mg IV-PUSH 3XW [facility] Stop: 08/25/23 09:01 Gabapentin (Gabapentin 300 Mg/6 Ml Udc) 100 mg NG-TUBE QPM KACI Stop: 08/16/24 20:59 Last Admin: 08/22/23 20:33 Dose: 100 mg Glucose (Dextrose 40% Gel 15 Gm Tube) 0 gm PO PRN PRN PRN Reason: Hypoglycemia Stop: 07/31/24 08:04 Heparin Sodium (Porcine) (Heparin 5,000 Unit/Ml Vial) 5,000 unit SUBCUT Q8HR [facility] Stop: 08/01/24 13:59 Last Admin: 08/23/23 [...] (Dextrose) 100 mls @ 4.84 mls/hr IV .[id number] [facility]; Protocol Stop: 08/04/24 10:14 Last Titration: 08/23/23 06:15 Dose: 0 mcg/kg/hr, 0 mls/hr Insulin Aspart (Insulin Aspart 300 Units/3 Ml Insuln.Pen) 0 units SUBCUT Q6HR [facility]; Protocol Stop: 07/31/24 11:59 Last Admin: 08/23/23 05:37 Dose: 4 units Insulin Glargine (Insulin Glargine 300 Units/3 Ml Insuln.Pen) 20 units SUBCUT BID [facility] Stop: 08/19/24 20:59 Last Admin: 08/23/23 08:28 Dose: 20 units Lansoprazole (Lansoprazole Solutab *Nf* 30 Mg Tab.Rap.Dr) 30 mg PEG DAILY [facility] Stop: 08/16/24 08:59 Last Admin: 08/22/23 [...] reading physician into a diagnostic report(s) for Chelsea Diego JR. 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 in setting [...] <Electronically signed by MD Sury Winkler> 08/23/23 1614 [facility] Work Phone: 1(486) 617-656403-30-2024 Progress note Author Mariia Reyna [facility] August 23, 2023 11:22am Note Date/Time August 23, 2023 11: 22am [facility] [address] [place] [address] Pulmonology Progress Note Signed Patient: Chelsea Diego JR MR#: [id number] : 1950 Acct:[id number] Age/Sex: 72 / M Adm Date: 4 Loc: Room: [address] [place] [address] Type: ADM IN Attending Dr: Arnaldo Thomas [...] signed by Mariia Reyna MD> 08/23/23 1122 [facility] Work Phone: 1([phone]) 164-847003-29-2024 Progress note Author Arnaldo Thomas [facility] August 22, 2023 12:13pm Note Date/Time August 22, 2023 12: 13pm [facility] [address] [place] [address] Hospitalist Progress Note Signed Patient: Chelsea Diego JR MR#: [id number] : 1950 Acct:[id number] Age/Sex: 72 / M Adm Date: 4 Loc: Room: [address] [place] [address] Type: ADM IN Attending Dr: Arnaldo Thomas [...] 06:08 Dextrose IV 08/04/24 10:14 0 mcg/kg/hr .[id number] KACI 0 mls/hr Titration Protocol 0.2 MCG/KG/HR [...] 08/22/23 09:43 Lansoprazole Solutab *Nf* 30 Mg Tab.Rap. PEG [...] signed by Arnaldo Thomas MD> 08/22/23 1213 [facility] Work Phone: [phone] Progress note Author Mehul Garrett [facility] August 22, 2023 12:03pm Note Date/Time August 22, 2023 8:0 3am [facility] [address] [place] [address] Pulmonology Progress Note Signed Patient: Chelsea Diego JR MR#: [id number] : 1950 Acct:[id number] Age/Sex: 72 / M Adm Date: 4 Loc: Room: [address] [place] [address] Type: ADM IN Attending Dr: Arnaldo Thomas [...] signed by MD Mehul Garrett> 08/22/23 1203 [facility] Work Phone: [phone] Progress note [facility] August 22, 2023 11:30am Note Date/Time August 22, 2023 11: 30am [facility] [address] [place] [address] Nephrology Progress Note Signed Patient: Chelsea Diego JR MR#: [id number] : 1950 Acct:[id number] Age/Sex: 72 / M Adm Date: 4 Loc: Room: [address] [place] [address] Type: ADM IN Attending Dr: Arnaldo Thomas [...] evidence of recovery. Patient was [facility] to [facility]. Patient presented to [place] ER from his nursing facility with severe shortness of breath requiring intubation. Chest x-ray showed bilateral pulmonary infiltrate with possible pulmonary edema. Subsequently the patient was transferred to [facility] and he continues to be on [...] Q6HR KACI Stop: 07/31/24 11:59 Last Admin: 08/22/23 05:06 Dose: 6 puff Amlodipine Besylate (Amlodipine 10 Mg Tablet) 10 mg OG-TUBE DAILY KACI Stop: 08/16/24 08:59 Last Admin: 08/22/23 09:42 Dose: 10 mg Aspirin (Aspirin 81 Mg Tab.Chew) 81 mg NG-TUBE DAILY KACI Stop: 08/16/24 15:59 Last Admin: 08/22/23 09:42 Dose: 81 mg Clopidogrel Bisulfate (Clopidogrel Bisulfate 75 Mg Tablet) 75 mg NG-TUBE DAILY KACI Stop: 08/16/24 15:59 Last Admin: 08/22/23 09:42 Dose: 75 mg Darbepoetin Abisai (Darbepoetin Abiasi In Polysorbat 60 Mcg/Ml Vial) 60 mcg [facility]- [facility]; Protocol Stop: 08/12/24 09:04 Last Admin: [...] Mg/5 Ml Vial) 125 mg IV-PUSH 3XW [facility] Stop: 08/25/23 09:01 Gabapentin (Gabapentin 300 Mg/6 Ml Udc) 100 mg NG-TUBE QPM [facility] Stop: 08/16/24 20:59 Last Admin: 08/21/23 21:42 Dose: 100 mg Glucose (Dextrose 40% Gel 15 Gm Tube) 0 gm PO PRN PRN PRN Reason: Hypoglycemia Stop: 07/31/24 08:04 Heparin Sodium (Porcine) (Heparin 5,000 Unit/Ml Vial) 5,000 unit SUBCUT Q8HR [facility] Stop: 08/01/24 13:59 Last Admin: 08/22/23 05:34 [...] (Dextrose) 100 mls @ 4.84 mls/hr IV .[id number] [facility]; Protocol Stop: 08/04/24 10:14 Last Titration: 08/22/23 06:08 Dose: 0 mcg/kg/hr, 0 mls/hr Insulin Aspart (Insulin Aspart 300 Units/3 Ml Insuln.Pen) 0 units SUBCUT Q6HR [facility]; Protocol Stop: 07/31/24 11:59 Last Admin: 08/22/23 05:35 Dose: 3 units Insulin Glargine (Insulin Glargine 300 Units/3 Ml Insuln.Pen) 20 units SUBCUT BID [facility] Stop: 08/19/24 20:59 Last Admin: 08/22/23 09:43 Dose: 20 units Lansoprazole (Lansoprazole Solutab *Nf* 30 Mg Tab.Rap.Dr) 30 mg PEG DAILY [facility] Stop: 08/16/24 08:59 Last Admin: 08/22/23 [...] BID KACI Stop: 08/15/24 20:59 Last Admin: 08/22/23 09:42 [...] Turbid A Urine pH 5.0 Ur Specific Marydel 1.026 Urine Protein 30 H Urine Glucose (UA) Normal Urine Ketones Trace H Urine Occult Blood 2+ H Urine Nitrite Positive H Ur Leukocyte Esterase 3+ H Urine RBC 3-4 Urine WBC 50-100 H Urine Bacteria 4+ H Radiology Impressions Impressions - last 24 hours: Any impression(s) listed above is documentation that was entered by the reading physician into a diagnostic report(s) for Chelsea Diego JR. I have reviewed the report(s) [...] was 1.1 mg/dL. 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 Documented By: Sury Winkler MD 08/22/23 1124 Signed By: <Electronically signed by MD Sury Winkler> 08/22/23 1130 [facility] Work Phone: 1([phone]) 562-438703-28-2024 Progress note Author Mehul Garrett [facility] August 21, 2023 5:23pm Note Date/Time August 21, 2023 5:2 4pm [facility] [address] [place], [place] [address] Pulmonology Progress Note Signed Patient: Chelsea Diego JR MR#: [id number] : 1950 Acct:[id number] Age/Sex: 72 / M Adm Date: 4 Loc: Room: [address] [place] [address] Type: ADM IN Attending Dr: Arnaldo Thomas [...] rehabilitation. Case was discussed with infectious disease medical social consultant with concerns for possible C. difficile. We await expedited appeal after placement at long-term acute care facility was rejected. Documented By: Mehul Garrett MD 4 1720 Signed By: <Electronically signed by MD Mehul Garrett> 08/21/23 6323 [facility] Work Phone: [phone] Progress note Author Arnaldo Thomas [facility] August 21, 2023 12:50pm Note Date/Time August 21, 2023 12: 50pm [facility] [address] [place] [address] Hospitalist Progress Note Signed Patient: Chelsea Diego JR MR#: [id number] : 1950 Acct:[id number] Age/Sex: 72 / M Adm Date: 4 Loc: Room: [address] [place] [address] Type: ADM IN Attending Dr: Arnaldo Thomas [...] 07:44 Dextrose IV 08/04/24 10:14 Not Given .[id number] KACI Protocol 0.2 MCG/KG/HR Micafungin Sodium 100 [...] 08/21/23 09:02 Lansoprazole Solutab *Nf* 30 Mg Tab.Rap.Dr OBRIEN [...] approved. Documented By: Arnaldo Thomas MD 08/21/23 124 Signed By: <Electronically signed by Arnaldo Thomas MD> 08/21/23 1253 [facility] Work Phone: [phone] Progress note Author Sury Winkler [facility] August 21, 2023 11:17am Note Date/Time August 21, 2023 11: 12am [facility] [address] [place] [address] Nephrology Progress Note Signed Patient: Chelsea Diego JR MR#: [id number] : 1950 Acct:[id number] Age/Sex: 72 / M Adm Date: 4 Loc: Room: 5N5881-7 Type: ADM IN Attending Dr: Arnaldo Thomas [...] evidence of recovery. Patient was discharged to [facility]. Patient presented to [place] ER from his nursing facility with severe shortness of breath requiring intubation. Chest x-ray showed bilateral pulmonary infiltrate with possible pulmonary edema. Subsequently the patient was transferred to [facility] and he continues to be on [...] 100 Trach Collar 10 08/21/23 09:00 08/21/23 10:08/21/23 10:00 08/21/23 10:00 08/21/23 10:00 08/21/23 10:00 [...] 10 Mg Tablet) 10 mg OG-TUBE DAILY [facility] Stop: 08/16/24 08:59 Last Admin: 08/21/23 09:02 Dose: 10 mg Aspirin (Aspirin 81 Mg Tab.Chew) 81 mg NG-TUBE DAILY [facility] Stop: 08/16/24 15:59 Last Admin: 08/21/23 09:02 Dose: 81 mg Clopidogrel Bisulfate (Clopidogrel Bisulfate 75 Mg Tablet) 75 mg NG-TUBE DAILY [facility] Stop: 08/16/24 15:59 Last Admin: 08/21/23 09:02 Dose: 75 mg Darbepoetin Abisai (Darbepoetin Abisai In Polysorbat 60 Mcg/Ml Vial) 60 mcg IV- [facility]USH[facility]; Protocol Stop: 08/12/24 09:04 Last Admin: 08/20/23 13:47 Dose: 60 mcg Dextrose (Dextrose 50% In Water 25 Gm/50 Ml Syringe) 0 gm IV-PUSH PRN PRN PRN Reason: Hypoglycemia Stop: 07/31/24 08:04 Last Admin: 08/19/23 05:25 Dose: 25 gm Diclofenac Sodium (Diclofenac Sodium 1% Gel 100 Gm Tube) 4 gm TOPICAL QID [facility] Stop: 08/16/24 17:59 Last Admin: 08/21/23 09:02 Dose: 4 gm Fentanyl Citrate (Fentanyl/Pf 100 Mcg/2 Ml Vial) 50 mcg IV-PUSH Q2H PRN PRN Reason: tracheostomy pain Last Admin: 08/20/23 17:57 Dose: 50 mcg Ferric Sodium Gluconate Complex (Sodium Ferric Gluconat/Sucrose 62.5 Mg/5 Ml Vial) 62.5 mg IV-PUSH We@0900 [facility] Stop: 08/12/24 09:04 Last Admin: 08/20/23 17:57 Dose: Not Given Gabapentin (Gabapentin 300 Mg/6 Ml Udc) 100 mg NG-TUBE QPM [facility] Stop: 08/16/24 20:59 Last Admin: 08/20/23 [...] (Dextrose) 100 mls @ 4.84 mls/hr IV .[id number] [facility]; Protocol Stop: 08/04/24 10:14 Last Admin: 08/21/23 07:44 Dose: Not Given Micafungin Sodium 100 mg/ (Sodium Chloride) 105 mls @ 105 mls/hr IV Q24H [facility] Stop: 08/21/23 16:59 Last Infusion: 08/20/23 19:00 Dose: Infused Insulin Aspart (Insulin Aspart 300 Units/3 Ml Insuln.Pen) 0 units SUBCUT Q6HR [facility]; Protocol Stop: 07/31/24 11:59 Last Admin: 08/21/23 05:34 Dose: 3 units Insulin Glargine (Insulin Glargine 300 Units/3 Ml Insuln.Pen) 20 units SUBCUT BID [facility] Stop: 08/19/24 20:59 Last Admin: 08/21/23 09:02 Dose: 20 units Lansoprazole (Lansoprazole Solutab *Nf* 30 Mg Tab.Rap.Dr) 30 mg PEG DAILY [facility] Stop: 08/16/24 08:59 Last Admin: 08/21/23 09:02 Dose: 30 mg Magnesium Hydroxide (Magnesium Hydroxide Susp 30 Ml Udc) 30 ml PO DAILY PRN PRN Reason: Constipation Stop: 08/02/24 22:13 Metoprolol Tartrate (Metoprolol Tartrate 5 Mg/5 Ml Vial) 5 mg IV-PUSH Q4H PRN PRN Reason: Blood Pressure Stop: 08/13/24 12:28 Metoprolol Tartrate (Metoprolol Tartrate 50 Mg Tablet) 50 mg NG-TUBE BID [facility] Stop: 08/15/24 20:59 Last Admin: 08/21/23 09:02 [...] reading physician into a diagnostic report(s) for Chelsea Diego JR. 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 Documented By: Sury Winkler MD 08/21/231109 Signed By: <Electronically signed by MD Sury Winkler> 08/21/23 1117 [facility] Work Phone: [phone]) 755-493403-28-2024 Progress note Author Michael Ramírez [facility] August 21, 2023 9:00am Note Date/Time August 21, 2023 8:4 9am [facility] [address] [place] [address] Infect. Disease Progress Note Signed Patient: Chelsea Diego JR MR#: [id number] : 1950 Acct:[id number] Age/Sex: 72 / M Adm Date: 4 Loc: Room: [address] [place] [address] Type: ADM IN Attending Dr: Arnaldo Thomas [...] Puff/18 Gm Inhaler) 6 puff VENT Q6HR [facility] Stop: 07/31/24 11:59 Last Admin: 08/21/23 05:20 Dose: 6 puff Amlodipine Besylate (Amlodipine 10 Mg Tablet) 10 mg OG-TUBE DAILY [facility] Stop: 08/16/24 08:59 Last Admin: 08/20/23 08:19 Dose: 10 mg Aspirin (Aspirin 81 Mg Tab.Chew) 81 mg NG-TUBE DAILY [facility] Stop: 08/16/24 15:59 Last Admin: 08/20/23 08:19 Dose: 81 mg Clopidogrel Bisulfate (Clopidogrel Bisulfate 75 Mg Tablet) 75 mg NG-TUBE DAILY [facility] Stop: 08/16/24 15:59 Last Admin: 08/20/23 08:19 Dose: 75 mg Darbepoetin Abisai (Darbepoetin Abisai In Polysorbat 60 Mcg/Ml Vial) 60 mcg IV- PUSHQWEEK [facility]; Protocol Stop: 08/12/24 09:04 Last Admin: 08/20/23 13:47 Dose: 60 mcg Dextrose (Dextrose 50% In Water 25 Gm/50 Ml Syringe) 0 gm IV-PUSH PRN PRN PRN Reason: Hypoglycemia Stop: 07/31/24 08:04 Last Admin: 08/19/23 05:25 Dose: 25 gm Diclofenac Sodium (Diclofenac Sodium 1% Gel 100 Gm Tube) 4 gm TOPICAL QID [facility] Stop: 08/16/24 17:59 Last Admin: 08/20/23 21:14 Dose: Not Given Fentanyl Citrate (Fentanyl/Pf 100 Mcg/2 Ml Vial) 50 mcg IV-PUSH Q2H PRN PRN Reason: tracheostomy pain Last Admin: 08/20/23 17:57 Dose: 50 mcg Ferric Sodium Gluconate Complex (Sodium Ferric Gluconat/Sucrose 62.5 Mg/5 Ml Vial) 62.5 mg IV-PUSH We@0900 [facility] Stop: 08/12/24 09:04 Last Admin: 08/20/23 17:57 Dose: Not Given Gabapentin (Gabapentin 300 Mg/6 Ml Udc) 100 mg NG-TUBE QPM [facility] Stop: 08/16/24 20:59 Last Admin: 08/20/23 20:49 [...] (Dextrose) 100 mls @ 4.84 mls/hr IV .[id number] [facility]; Protocol Stop: 08/04/24 10:14 Last Admin: 08/21/23 07:44 Dose: Not Given Micafungin Sodium 100 mg/ (Sodium Chloride) 105 mls @ 105 mls/hr IV Q24H [facility] Stop: 08/21/23 16:59 Last Infusion: 08/20/23 19:00 Dose: Infused Insulin Aspart (Insulin Aspart 300 Units/3 Ml Insuln.Pen) 0 units SUBCUT Q6HR [facility]; Protocol Stop: 07/31/24 11:59 Last Admin: 08/21/23 05:34 Dose: 3 units Insulin Glargine (Insulin Glargine 300 Units/3 Ml Insuln.Pen) 20 units SUBCUT BID [facility] Stop: 08/19/24 20:59 Last Admin: 08/20/23 20:50 Dose: 20 units Lansoprazole (Lansoprazole Solutab *Nf* 30 Mg Tab.Rap.Dr) 30 mg PEG DAILY [facility] Stop: 08/16/24 08:59 Last Admin: 08/20/23 08:20 Dose: 30 mg Magnesium Hydroxide (Magnesium Hydroxide Susp 30 Ml Udc) 30 ml PO DAILY PRN PRN Reason: Constipation Stop: 08/02/24 22:13 Metoprolol Tartrate (Metoprolol Tartrate 5 Mg/5 Ml Vial) 5 mg IV-PUSH Q4H PRN PRN Reason: Blood Pressure Stop: 08/13/24 12:28 Metoprolol Tartrate (Metoprolol Tartrate 50 Mg Tablet) 50 mg NG-TUBE BID [facility] Stop: 08/15/24 20:59 Last Admin: 08/20/23 [...] signed by MD Michael Ramírez> 08/21/23 0900 [facility] Work Phone: [phone] 191-888603-27-2024 Progress note Author Mehul Garrett [facility] August 20, 2023 4:52pm Note Date/Time August 20, 2023 8:2 4am [facility] [address] [place] [address] Pulmonology Progress Note Signed Patient: Chelsea Diego JR MR#: [id number] : 1950 Acct:[id number] Age/Sex: 72 / M Adm Date: 4 Loc: Room: [address] [place] [address] Type: ADM IN Attending Dr: Arnaldo Thomas [...] service. Documented By: Mehul Garrett MD 4 821 Signed By: <Electronically signed by MD Mehul Garrett> 08/20/23 1652 [facility] Work Phone: 1(106) [phone] Progress note Author Arnaldo Thomas [facility] August 20, 2023 2:48pm Note Date/Time August 20, 2023 2:3 7pm [facility] [address] [place] [address] Hospitalist Progress Note Signed Patient: Chelsea Diego JR MR#: [id number] : 1950 Acct:[id number] Age/Sex: 72 / M Adm Date: 4 Loc: Room: [address] [place] [address] Type: ADM IN Attending Dr: Arnaldo Thomas [...] 05:50 Dextrose IV 08/04/24 10:14 0 mcg/kg/hr .[id number] KACI 0 mls/hr Titration Protocol 0.2 MCG/KG/HR [...] 08:20 Lansoprazole Solutab *Nf* 30 Mg Tab.Rap.Dr OBRIEN [...] <Electronically signed by Arnaldo Thomas MD> 08/20/23 4165 [facility] Work Phone: 1(203) 665-797503-27-2024 Progress note Author Sury Winkler [facility] August 20, 2023 12:22pm Note Date/Time August 20, 2023 12: 22pm [facility] [address] [place] [address] Nephrology Progress Note Signed Patient: Chelsea Diego JR MR#: [id number] : 1950 Acct:[id number] Age/Sex: 72 / M Adm Date: 4 Loc: 4C Room: [address] [place] [address] Type: ADM IN Attending Dr: Arnaldo Thomas MD Copies to: ~ Date of Service: 08/20/2023 Subjective Subjective Narrative: Mr. Johnathon is a 72-year-old male with history of DM2, HTN, PAD and prostate cancer. Patient was recently started on hemodialysis during his admission in June 2023 for SONYA possibly related to ATN versus Staph aureus glomerulonephritis. Patient had left diabetic wound s/p tarsometatarsal amputation. Creatinine has increased up to 5 mg/dL with no evidence of recovery. Patient was [facility] to [facility]. Patient presented to [place] ER from his nursing facility with severe shortness of breath requiring intubation. Chest x-ray showed bilateral pulmonary infiltrate with possible pulmonary edema. Subsequently the patient was transferred to [facility] and he continues to be on [...] 98 Trach Collar 10 08/20/23 05:00 08/20/23 11:08/20/23 11:00 08/20/23 11:00 08/20/23 11:00 08/20/23 11:00 [...] Puff/18 Gm Inhaler) 6 puff VENT Q6HR [facility] Stop: 07/31/24 11:59 Last Admin: 08/20/23 05:16 Dose: 6 puff Amlodipine Besylate (Amlodipine 10 Mg Tablet) 10 mg OG-TUBE DAILY [facility] Stop: 08/16/24 08:59 Last Admin: 08/20/23 08:19 Dose: 10 mg Aspirin (Aspirin 81 Mg Tab.Chew) 81 mg NG-TUBE DAILY [facility] Stop: 08/16/24 15:59 Last Admin: 08/20/23 08:19 Dose: 81 mg Clopidogrel Bisulfate (Clopidogrel Bisulfate 75 Mg Tablet) 75 mg NG-TUBE DAILY [facility] Stop: 08/16/24 15:59 Last Admin: 08/20/23 08:19 Dose: 75 mg Darbepoetin Abisai (Darbepoetin Abisai In Polysorbat 60 Mcg/Ml Vial) 60 mcg IV- PUSHQWEEK [facility]; Protocol Stop: 08/12/24 09:04 Last Admin: 08/13/23 11:24 Dose: 60 mcg Dextrose (Dextrose 50% In Water 25 Gm/50 Ml Syringe) 0 gm IV-PUSH PRN PRN PRN Reason: Hypoglycemia Stop: 07/31/24 08:04 Last Admin: 08/19/23 05:25 Dose: 25 gm Diclofenac Sodium (Diclofenac Sodium 1% Gel 100 Gm Tube) 4 gm TOPICAL QID [facility] Stop: 08/16/24 17:59 Last Admin: 08/20/23 08:20 Dose: 4 gm Fentanyl Citrate (Fentanyl/Pf 100 Mcg/2 Ml Vial) 50 mcg IV-PUSH Q2H PRN PRN Reason: tracheostomy pain Last Admin: 08/18/23 15:14 Dose: 50 mcg Ferric Sodium Gluconate Complex (Sodium Ferric Gluconat/Sucrose 62.5 Mg/5 Ml Vial) 62.5 mg IV-PUSH We@0900 [facility] Stop: 08/12/24 09:04 Last Admin: 08/13/23 11:24 Dose: 62.5 mg Gabapentin (Gabapentin 300 Mg/6 Ml Udc) 100 mg NG-TUBE QPM [facility] Stop: 08/16/24 20:59 Last Admin: 08/19/23 21:33 Dose: 100 mg Glucose (Dextrose 40% Gel 15 Gm Tube) 0 gm PO PRN PRN PRN Reason: Hypoglycemia Stop: 07/31/24 08:04 Heparin Sodium (Porcine) (Heparin 5,000 Unit/Ml Vial) 5,000 unit SUBCUT Q8HR [facility] Stop: 08/01/24 13:59 Last Admin: 08/20/23 [...] (Dextrose) 100 mls @ 4.84 mls/hr IV .[id number] [facility]; Protocol Stop: 08/04/24 10:14 Last Titration: 08/20/23 05:50 Dose: 0 mcg/kg/hr, 0 mls/hr Micafungin Sodium 100 mg/ (Sodium Chloride) 105 mls @ 105 mls/hr IV Q24H [facility] Stop: 08/21/23 16:59 Last Admin: 08/19/23 18:07 Dose: 105 mls/hr Insulin Aspart (Insulin Aspart 300 Units/3 Ml Insuln.Pen) 0 units SUBCUT Q6HR [facility]; Protocol Stop: 07/31/24 11:59 Last Admin: 08/20/23 05:17 Dose: 3 units Insulin Glargine (Insulin Glargine 300 Units/3 Ml Insuln.Pen) 20 units SUBCUT BID [facility] Stop: 08/19/24 20:59 Lansoprazole (Lansoprazole Solutab *Nf* 30 Mg Tab.Rap.Dr) 30 mg PEG DAILY [facility] Stop: 08/16/24 08:59 Last Admin: 08/20/23 [...] reading physician into a diagnostic report(s) for Chelsea Diego JR. 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 SUSANA positive for [employer] antibodies with unclear significance. He may need [...] <Electronically signed by MD Sury Winkler> 08/20/23 1222 [facility] Work Phone: 1(856) [phone] Progress note Author Michael Ramírez [facility] August 20, 2023 10:19am Note Date/Time August 20, 2023 10: 19am [facility] [address] [place], [place] [id number] Infect. Disease Progress Note Signed Patient: Chelsea Diego JR MR#: [id number] : 1950 Acct:[id number] Age/Sex: 72 / M Adm Date: 4 Loc: Room: [address] [place] [address] Type: ADM IN Attending Dr: Arnaldo Thomas [...] 10 Mg Tablet) 10 mg OG-TUBE DAILY [facility] Stop: 08/16/24 08:59 Last Admin: 08/20/23 08:19 Dose: 10 mg Aspirin (Aspirin 81 Mg Tab.Chew) 81 mg NG-TUBE DAILY [facility] Stop: 08/16/24 15:59 Last Admin: 08/20/23 08:19 Dose: 81 mg Clopidogrel Bisulfate (Clopidogrel Bisulfate 75 Mg Tablet) 75 mg NG-TUBE DAILY [facility] Stop: 08/16/24 15:59 Last Admin: 08/20/23 08:19 Dose: 75 mg Darbepoetin Abisai (Darbepoetin Abisai In Polysorbat 60 Mcg/Ml Vial) 60 mcg IV- PUSHQWEEK [facility]; Protocol Stop: 08/12/24 09:04 Last Admin: 08/13/23 11:24 Dose: 60 mcg Dextrose (Dextrose 50% In Water 25 Gm/50 Ml Syringe) 0 gm IV-PUSH PRN PRN PRN Reason: Hypoglycemia Stop: 07/31/24 08:04 Last Admin: 08/19/23 05:25 Dose: 25 gm Diclofenac Sodium (Diclofenac Sodium 1% Gel 100 Gm Tube) 4 gm TOPICAL QID [facility] Stop: 08/16/24 17:59 Last Admin: 08/20/23 08:20 Dose: 4 gm Fentanyl Citrate (Fentanyl/Pf 100 Mcg/2 Ml Vial) 50 mcg IV-PUSH Q2H PRN PRN Reason: tracheostomy pain Last Admin: 08/18/23 15:14 Dose: 50 mcg Ferric Sodium Gluconate Complex (Sodium Ferric Gluconat/Sucrose 62.5 Mg/5 Ml Vial) 62.5 mg IV-PUSH We@0900 [facility] Stop: 08/12/24 09:04 Last Admin: 08/13/23 11:24 Dose: 62.5 mg Gabapentin (Gabapentin 300 Mg/6 Ml Udc) 100 mg NG-TUBE QPM [facility] Stop: 08/16/24 20:59 Last Admin: 08/19/23 21:33 Dose: 100 mg Glucose (Dextrose 40% Gel 15 Gm Tube) 0 gm PO PRN PRN PRN Reason: Hypoglycemia Stop: 07/31/24 08:04 Heparin Sodium (Porcine) (Heparin 5,000 Unit/Ml Vial) 5,000 unit SUBCUT Q8HR [facility] Stop: 08/01/24 13:59 Last Admin: 08/20/23 05:17 [...] (Dextrose) 100 mls @ 4.84 mls/hr IV .[id number] [facility]; Protocol Stop: 08/04/24 10:14 Last Titration: 08/20/23 05:50 Dose: 0 mcg/kg/hr, 0 mls/hr Micafungin Sodium 100 mg/ (Sodium Chloride) 105 mls @ 105 mls/hr IV Q24H [facility] Stop: 08/21/23 16:59 Last Admin: 08/19/23 18:07 Dose: 105 mls/hr Insulin Aspart (Insulin Aspart 300 Units/3 Ml Insuln.Pen) 0 units SUBCUT Q6HR [facility]; Protocol Stop: 07/31/24 11:59 Last Admin: 08/20/23 05:17 Dose: 3 units Insulin Glargine (Insulin Glargine 300 Units/3 Ml Insuln.Pen) 20 units SUBCUT BID [facility] Stop: 08/19/24 20:59 Lansoprazole (Lansoprazole Solutab [...] 50 Mg Tablet) 50 mg PO BID.9A.2P [facility] Stop: 08/12/24 13:59 Last Admin: 08/20/23 08:19 [...] signed by MD Michael Ramírez> 08/20/23 1019 [facility] Work Phone: 1([phone] 548-424203-26-2024 Progress note Author Sury Winkler [facility] August 19, 2023 3:56pm Note Date/Time August 19, 2023 3:5 6pm [facility] [address] [place] [address] Nephrology Progress Note Signed Patient: Chelsea Diego JR MR#: [id number] : 1950 Acct:[id number] Age/Sex: 72 / M Adm Date: 4 Loc: Room: [address] [place] [address] Type: ADM IN Attending Dr: Arnaldo Thomas [...] evidence of recovery. Patient [facility]. Patient presented to [place] ER from his nursing facility with severe shortness of breath requiring intubation. Chest x-ray showed bilateral pulmonary infiltrate with possible pulmonary edema. Subsequently the patient was transferred to [facility] and he continues to be on [...] 98 Mechanical Ventilation 10 08/19/23 12:00 08/19/23 13:00 08/19/23 13:00 08/19/23 13:00 08/19/23 13:00 08/19/23 13:00 [...] Puff/18 Gm Inhaler) 6 puff VENT Q6HR [facility] Stop: 07/31/24 11:59 Last Admin: 08/19/23 12:12 Dose: 6 puff Amlodipine Besylate (Amlodipine 10 Mg Tablet) 10 mg OG-TUBE DAILY [facility] Stop: 08/16/24 08:59 Last Admin: 08/19/23 08:36 Dose: 10 mg Aspirin (Aspirin 81 Mg Tab.Chew) 81 mg NG-TUBE DAILY [facility] Stop: 08/16/24 15:59 Last Admin: 08/19/23 08:36 Dose: 81 mg Clopidogrel Bisulfate (Clopidogrel Bisulfate 75 Mg Tablet) 75 mg NG-TUBE DAILY [facility] Stop: 08/16/24 15:59 Last Admin: 08/19/23 08:36 Dose: 75 mg Darbepoetin Abisai (Darbepoetin Abisai In Polysorbat 60 Mcg/Ml Vial) 60 mcg IV- PUSHQWEEK [facility]; Protocol Stop: 08/12/24 09:04 Last Admin: 08/13/23 11:24 Dose: 60 mcg Dextrose (Dextrose 50% In Water 25 Gm/50 Ml Syringe) 0 gm IV-PUSH PRN PRN PRN Reason: Hypoglycemia Stop: 07/31/24 08:04 Last Admin: 08/19/23 05:25 Dose: 25 gm Diclofenac Sodium (Diclofenac Sodium 1% Gel 100 Gm Tube) 4 gm TOPICAL QID [facility] Stop: 08/16/24 17:59 Last Admin: 08/19/23 14:39 Dose: 4 gm Fentanyl Citrate (Fentanyl/Pf 100 Mcg/2 Ml Vial) 50 mcg IV-PUSH Q2H PRN PRN Reason: tracheostomy pain Last Admin: 03/25/24 15:14 Dose: 50 mcg Ferric Sodium Gluconate [...] (Dextrose) 100 mls @ 4.84 mls/hr IV .[id number] [facility]; Protocol Stop: 08/04/24 10:14 Last Admin: 08/19/23 14:38 Dose: Not Given Micafungin Sodium 100 mg/ (Sodium Chloride) 105 mls @ 105 mls/hr IV Q24H [facility] Stop: 08/21/23 16:59 Last Infusion: 08/18/23 19:00 Dose: Infused Insulin Aspart (Insulin Aspart 300 Units/3 Ml Insuln.Pen) 0 units SUBCUT Q6HR [facility]; Protocol Stop: 07/31/24 11:59 Last Admin: 08/19/23 12:59 Dose: Not Given Insulin Glargine (Insulin Glargine 300 Units/3 Ml Insuln.Pen) 30 units SUBCUT BID [facility] Stop: 08/16/24 20:59 Last Admin: 08/19/23 08:37 Dose: 30 units Lansoprazole (Lansoprazole Solutab *Nf* 30 Mg Tab.Rap.Dr) 30 mg PEG DAILY [facility] Stop: 08/16/24 08:59 Last Admin: 08/19/23 08:37 Dose: 30 mg Magnesium Hydroxide (Magnesium Hydroxide Susp 30 Ml Udc) 30 ml PO DAILY PRN PRN Reason: Constipation Stop: 08/02/24 22:13 Metoprolol Tartrate (Metoprolol Tartrate 5 Mg/5 Ml Vial) 5 mg IV-PUSH Q4H PRN PRN Reason: Blood Pressure Stop: 08/13/24 12:28 Metoprolol Tartrate (Metoprolol Tartrate 50 Mg Tablet) 50 mg NG-TUBE BID [facility] Stop: 08/15/24 20:59 Last Admin: 08/19/23 08:36 Dose: 50 mg Quetiapine Fumarate (Quetiapine Fumarate 50 Mg Tablet) 50 mg PO BID.9A.2P [facility] Stop: 08/12/24 13:59 Last Admin: 08/19/23 [...] Simmons Jr., D.OTracy08/18/2023 6:28 PM Dictation Location: [place] [address] Any impression(s) listed above is documentation that was entered by the reading physician into a diagnostic report(s) for Chelsea Diego JR. 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 Urine output started to grain picker slowly over the last few days however still below 500 mL daily. * He is currently on micafungin and meropenem. Sputum culture showed Rajiv albicans and urine culture showed Rajiv glabrata. Pharmacy to dose medication based on ESRD status. * ANCA, and anti-GBM antibodies are negative. SUSANA positive for [employer] OFFICER antibodies with unclear significance. He may need [...] <Electronically signed by MD Sury Winkler> 08/19/23 4862 [facility] Work Phone: 1(770) 683-174903-26-2024 Progress note Author Mehul Garrett [facility] August 19, 2023 12:58pm Note Date/Time August 19, 2023 8:0 1am [facility] [address] [place] [address] Pulmonology Progress Note Signed Patient: Chelsea Diego JR MR#: [id number] : 1950 Acct:[id number] Age/Sex: 72 / M Adm Date: 4 Loc: Room: [address] [place] [address] Type: ADM IN Attending Dr: Arnaldo Thomas [...] <Electronically signed by MD Mehul Garrett> 08/19/23 2448 [facility] Work Phone: 1(119) 144-392703-26-2024 Progress note Author Arnaldo Thomas [facility] August 19, 2023 12:57pm Note Date/Time August 19, 2023 12: 57pm [facility] [address] [place] [address] Hospitalist Progress Note Signed Patient: Chelsea Diego JR MR#: [id number] : 1950 Acct:[id number] Age/Sex: 72 / M Adm Date: 4 Loc: Room: [address] [place] [address] Type: ADM IN Attending Dr: Arnaldo Thomas [...] 06:10 Dextrose IV 08/04/24 10:14 0 mcg/kg/hr .[id number] [facility] 0 mls/hr Titration Protocol 0.2 MCG/KG/HR [...] arranged. Documented By: Arnaldo Thomas MD 08/19/23 6896 Signed By: <Electronically signed by Arnaldo Thomas MD> 08/19/23 1257 [facility] Work Phone: 1(442) 780-560203-26-2024 Progress note Author Michael Ramírez [facility] August 19, 2023 9:23am Note Date/Time August 19, 2023 9:2 3am [facility] [address] [place] [address] Infect. Disease Progress Note Signed Patient: Chelsea Diego JR MR#: [id number] : 1950 Acct:[id number] Age/Sex: 72 / M Adm Date: 4 Loc: Room: [address] [place] [address] Type: ADM IN Attending Dr: Arnaldo Thomas [...] 10 Mg Tablet) 10 mg OG-TUBE DAILY [facility] Stop: 08/16/24 08:59 Last Admin: 08/19/23 08:36 Dose: 10 mg Aspirin (Aspirin 81 Mg Tab.Chew) 81 mg NG-TUBE DAILY [facility] Stop: 08/16/24 15:59 Last Admin: 08/19/23 08:36 Dose: 81 mg Clopidogrel Bisulfate (Clopidogrel Bisulfate 75 Mg Tablet) 75 mg NG-TUBE DAILY [facility] Stop: 08/16/24 15:59 Last Admin: 08/19/23 08:36 Dose: 75 mg Darbepoetin Abisai (Darbepoetin Abisai In Polysorbat 60 Mcg/Ml Vial) 60 mcg IV- PUSHQWEEK [facility]; Protocol Stop: 08/12/24 09:04 Last Admin: 08/13/23 11:24 Dose: 60 mcg Dextrose (Dextrose 50% In Water 25 Gm/50 Ml Syringe) 0 gm IV-PUSH PRN PRN PRN Reason: Hypoglycemia Stop: 07/31/24 08:04 Last Admin: 08/19/23 05:25 Dose: 25 gm Diclofenac Sodium (Diclofenac Sodium 1% Gel 100 Gm Tube) 4 gm TOPICAL QID [facility] Stop: 08/16/24 17:59 Last Admin: 08/19/23 08:37 Dose: 4 gm Fentanyl Citrate (Fentanyl/Pf 100 Mcg/2 Ml Vial) 50 mcg IV-PUSH Q2H PRN PRN Reason: tracheostomy pain Last Admin: 08/18/23 15:14 Dose: 50 mcg Ferric Sodium Gluconate Complex (Sodium Ferric Gluconat/Sucrose 62.5 Mg/5 Ml Vial) 62.5 mg IV-PUSH We@0900 [facility] Stop: 08/12/24 09:04 Last Admin: 08/13/23 11:24 Dose: 62.5 mg Gabapentin (Gabapentin 300 Mg/6 Ml Udc) 100 mg NG-TUBE QPM [facility] Stop: 08/16/24 20:59 Last Admin: 08/18/23 20:28 Dose: 100 mg Glucose (Dextrose 40% Gel 15 Gm Tube) 0 gm PO PRN PRN PRN Reason: Hypoglycemia Stop: 07/31/24 08:04 Heparin Sodium (Porcine) (Heparin 5,000 Unit/Ml Vial) 5,000 unit SUBCUT Q8HR [facility] Stop: 08/01/24 13:59 Last Admin: 08/19/23 [...] (Dextrose) 100 mls @ 4.84 mls/hr IV .[id number] [facility]; Protocol Stop: 08/04/24 10:14 Last Titration: 08/19/23 06:10 Dose: 0 mcg/kg/hr, 0 mls/hr Micafungin Sodium 100 mg/ (Sodium Chloride) 105 mls @ 105 mls/hr IV Q24H [facility] Stop: 08/21/23 16:59 Last Infusion: 08/18/23 19:00 Dose: Infused Insulin Aspart (Insulin Aspart 300 Units/3 Ml Insuln.Pen) 0 units SUBCUT Q6HR [facility]; Protocol Stop: 07/31/24 11:59 Last Admin: 08/19/23 05:24 Dose: Not Given Insulin Glargine (Insulin Glargine 300 Units/3 Ml Insuln.Pen) 30 units SUBCUT BID [facility] Stop: 08/16/24 20:59 Last Admin: 08/19/23 08:37 Dose: 30 units Lansoprazole (Lansoprazole Solutab *Nf* 30 Mg Tab.Rap.Dr) 30 mg PEG DAILY [facility] Stop: 08/16/24 08:59 Last Admin: 08/19/23 08:37 Dose: 30 mg Magnesium Hydroxide (Magnesium Hydroxide Susp 30 Ml Udc) 30 ml PO DAILY PRN PRN Reason: Constipation Stop: 08/02/24 22:13 Metoprolol Tartrate (Metoprolol Tartrate 5 Mg/5 Ml Vial) 5 mg IV-PUSH Q4H PRN PRN Reason: Blood Pressure Stop: 08/13/24 12:28 Metoprolol Tartrate (Metoprolol Tartrate 50 Mg Tablet) 50 mg NG-TUBE BID [facility] Stop: 08/15/24 20:59 Last Admin: 08/19/23 08:36 Dose: 50 mg Quetiapine Fumarate (Quetiapine Fumarate 50 Mg Tablet) 50 mg PO BID.9A.2P [facility] Stop: 08/12/24 13:59 Last Admin: 08/19/23 08:36 [...] elevated but is slightly less. Documented By: Micheal Ramírez MD 08/19/23920 Signed By: <Electronically signed by MD Michael Ramírez> 08/19/23922 [facility] Work Phone: [phone] Progress note Author Michael Ramírez [facility] August 19, 2023 9:21am Note Date/Time August 18, 2023 8:5 4am [facility] [address] [place] [address] Infect. Disease Progress Note Signed Patient: Chelsea Diego JR MR#: [id number] : 1950 Acct:[id number] Age/Sex: 72 / M Adm Date: 4 Loc: Room: [address] [place] [address] Type: ADM IN Attending Dr: Arnaldo Thomas [...] Puff/18 Gm Inhaler) 6 puff VENT Q6HR [facility] Stop: 07/31/24 11:59 Last Admin: 08/18/23 05:23 Dose: 6 puff Amlodipine Besylate (Amlodipine 10 Mg Tablet) 10 mg OG-TUBE DAILY [facility] Stop: 08/16/24 08:59 Last Admin: 08/17/23 11:27 Dose: 10 mg Aspirin (Aspirin 81 Mg Tab.Chew) 81 mg NG-TUBE DAILY [facility] Stop: 08/16/24 15:59 Last Admin: 08/17/23 17:29 Dose: 81 mg Clopidogrel Bisulfate (Clopidogrel Bisulfate 75 Mg Tablet) 75 mg NG-TUBE DAILY [facility] Stop: 08/16/24 15:59 Last Admin: 08/17/23 17:29 Dose: 75 mg Darbepoetin Abisai (Darbepoetin Abisai In Polysorbat 60 Mcg/Ml Vial) 60 mcg IV- PUSHQWEEK [facility]; Protocol Stop: 08/12/24 09:04 Last Admin: 08/13/23 11:24 Dose: 60 mcg Dextrose (Dextrose 50% In Water 25 Gm/50 Ml Syringe) 0 gm IV-PUSH PRN PRN PRN Reason: Hypoglycemia Stop: 07/31/24 08:04 Diclofenac Sodium (Diclofenac Sodium 1% Gel 100 Gm Tube) 4 gm TOPICAL QID [facility] Stop: 08/16/24 17:59 Last Admin: 08/17/23 23:40 Dose: 4 gm Fentanyl Citrate (Fentanyl/Pf 100 Mcg/2 Ml Vial) 50 mcg IV-PUSH Q2H PRN PRN Reason: tracheostomy pain Last Admin: 08/17/23 22:02 Dose: 50 mcg Ferric Sodium Gluconate Complex (Sodium Ferric Gluconat/Sucrose 62.5 Mg/5 Ml Vial) 62.5 mg IV-PUSH We@0900 [facility] Stop: 08/12/24 09:04 Last Admin: 08/13/23 [...] (Dextrose) 100 mls @ 4.84 mls/hr IV .[id number] [facility]; Protocol Stop: 08/04/24 10:14 Last Titration: 08/18/23 05:33 Dose: 0 mcg/kg/hr, 0 mls/hr Micafungin Sodium 100 mg/ (Sodium Chloride) 105 mls @ 105 mls/hr IV Q24H [facility] Stop: 08/21/23 16:59 Last Admin: 08/17/23 17:29 Dose: 105 mls/hr Insulin Aspart (Insulin Aspart 300 Units/3 Ml Insuln.Pen) 0 units SUBCUT Q6HR [facility]; Protocol Stop: 07/31/24 11:59 Last Admin: 08/18/23 06:29 Dose: 3 units Insulin Glargine (Insulin Glargine 300 Units/3 Ml Insuln.Pen) 30 units SUBCUT BID [facility] Stop: 08/16/24 20:59 Last Admin: 08/17/23 23:41 Dose: 30 units Lansoprazole (Lansoprazole Solutab *Nf* 30 Mg Tab.Rap.) 30 mg PEG DAILY [facility] Stop: 08/16/24 08:59 Last Admin: 08/17/23 11:27 Dose: 30 mg Magnesium Hydroxide (Magnesium Hydroxide Susp 30 Ml Udc) 30 ml PO DAILY PRN PRN Reason: Constipation Stop: 08/02/24 22:13 Metoprolol Tartrate (Metoprolol Tartrate 5 Mg/5 Ml Vial) 5 mg IV-PUSH Q4H PRN PRN Reason: Blood Pressure Stop: 08/13/24 12:28 Metoprolol Tartrate (Metoprolol Tartrate 50 Mg Tablet) 50 mg NG-TUBE BID [facility] Stop: 08/15/24 20:59 Last Admin: 08/17/23 23:41 Dose: 50 mg Quetiapine Fumarate (Quetiapine Fumarate 50 Mg Tablet) 50 mg PO BID.9A.2P [facility] Stop: 08/12/24 13:59 Last Admin: 08/17/23 [...] By: <Electronically signed by MD Michael Ramírez> 08/19/2321 [facility] Work Phone: 1(755) 413-725703-25-2024 Progress note Author Mehul Garrett [facility] August 18, 2023 5:13pm Note Date/Time August 18, 2023 11: 28am [facility] [address] [place] [address] Pulmonology Progress Note Signed Patient: Chelsea Diego JR MR#: [id number] : 1950 Acct:[id number] Age/Sex: 72 / M Adm Date: 4 Loc: Room: [address] [place] [address] Type: ADM IN Attending Dr: Arnaldo Thomas [...] <Electronically signed by MD Mehul Garrett> 08/18/23 5179 [facility] Work Phone: [phone] 320-336203-25-2024 Progress note Author Arnaldo Thomas [facility] August 18, 2023 12:32pm Note Date/Time August 18, 2023 12: 26pm [facility] [address] [place] [address] Hospitalist Progress Note Signed Patient: Chelsea Diego JR MR#: [id number] : 1950 Acct:[id number] Age/Sex: 72 / M Adm Date: 4 Loc: Room: [address] [place] [address] Type: ADM IN Attending Dr: Arnaldo Thomas [...] 05:33 Dextrose IV 08/04/24 10:14 0 mcg/kg/hr .[id number] [facility] 0 mls/hr Titration Protocol 0.2 MCG/KG/HR [...] signed by Arnaldo Thomas MD> 08/18/23 1232 [facility] Work Phone: [phone] 260-948403-25-2024 Progress note Author Sury Winkler [facility] August 18, 2023 11:34am Note Date/Time August 18, 2023 11: 32am [facility] [address] [place] [address] Nephrology Progress Note Signed Patient: Chelsea Diego JR MR#: [id number] : 1950 Acct:[id number] Age/Sex: 72 / M Adm Date: 4 Loc: Room: [address] [place] [address] Type: ADM IN Attending Dr: Arnaldo Thomas [...] evidence of recovery. [facility]. Patient presented to [place] ER from his nursing facility with severe shortness of breath requiring intubation. Chest x-ray showed bilateral pulmonary infiltrate with possible pulmonary edema. Subsequently the patient was transferred to [facility] and he continues to be on [...] Q6HR [facility] Stop: 07/31/24 11:59 Last Admin: 08/18/23 05:23 Dose: 6 puff Amlodipine Besylate (Amlodipine 10 Mg Tablet) 10 mg OG-TUBE DAILY [facility] Stop: 08/16/24 08:59 Last Admin: 08/17/23 11:27 Dose: 10 mg Aspirin (Aspirin 81 Mg Tab.Chew) 81 mg NG-TUBE DAILY [facility] Stop: 08/16/24 15:59 Last Admin: 08/18/23 08:59 Dose: 81 mg Clopidogrel Bisulfate (Clopidogrel Bisulfate 75 Mg Tablet) 75 mg NG-TUBE DAILY [facility] Stop: 08/16/24 15:59 Last Admin: 08/18/23 08:59 Dose: 75 mg Darbepoetin Abisai (Darbepoetin Abisai In Polysorbat 60 Mcg/Ml Vial) 60 mcg IV- PUSHQWEEK [facility]; Protocol Stop: 08/12/24 09:04 Last Admin: 08/13/23 11:24 Dose: 60 mcg Dextrose (Dextrose 50% In Water 25 Gm/50 Ml Syringe) 0 gm IV-PUSH PRN PRN PRN Reason: Hypoglycemia Stop: 07/31/24 08:04 Diclofenac Sodium (Diclofenac Sodium 1% Gel 100 Gm Tube) 4 gm TOPICAL QID [facility] Stop: 08/16/24 17:59 Last Admin: 08/18/23 09:00 Dose: 4 gm Fentanyl Citrate (Fentanyl/Pf 100 Mcg/2 Ml Vial) 50 mcg IV-PUSH Q2H PRN PRN Reason: tracheostomy pain Last Admin: 08/17/23 22:02 Dose: 50 mcg Ferric Sodium Gluconate Complex (Sodium Ferric Gluconat/Sucrose 62.5 Mg/5 Ml Vial) 62.5 mg IV-PUSH We@0900 [facility] Stop: 08/12/24 09:04 Last Admin: 08/13/23 11:24 Dose: 62.5 mg Gabapentin (Gabapentin Soln 250 Mg/5 Ml) 100 mg NG-TUBE QPM [facility] Stop: 08/16/24 20:59 Last Admin: 08/17/23 23:41 Dose: 100 mg Glucose (Dextrose 40% Gel 15 Gm Tube) 0 gm PO PRN PRN PRN Reason: Hypoglycemia Stop: 07/31/24 08:04 Heparin Sodium (Porcine) (Heparin 5,000 Unit/Ml Vial) 5,000 unit SUBCUT Q8HR [facility] Stop: 08/01/24 13:59 Last Admin: 08/18/23 [...] (Dextrose) 100 mls @ 4.84 mls/hr IV .[id number] [facility]; Protocol Stop: 08/04/24 10:14 Last Titration: 08/18/23 05:33 Dose: 0 mcg/kg/hr, 0 mls/hr Micafungin Sodium 100 mg/ (Sodium Chloride) 105 mls @ 105 mls/hr IV Q24H [facility] Stop: 08/21/23 16:59 Last Admin: 08/17/23 17:29 Dose: 105 mls/hr Insulin Aspart (Insulin Aspart 300 Units/3 Ml Insuln.Pen) 0 units SUBCUT Q6HR [facility]; Protocol Stop: 07/31/24 11:59 Last Admin: 08/18/23 06:29 Dose: 3 units Insulin Glargine (Insulin Glargine 300 Units/3 Ml Insuln.Pen) 30 units SUBCUT BID [facility] Stop: 08/16/24 20:59 Last Admin: 08/18/23 09:00 Dose: 30 units Lansoprazole (Lansoprazole Solutab *Nf* 30 Mg Tab.Rap.) 30 mg PEG DAILY [facility] Stop: 08/16/24 08:59 Last Admin: 08/18/23 [...] Dhruv Conroy M.D.08/17/2023 1:13 PM Dictation Location: [place] [address] Abdomen X-Ray 08/17/23 20:44 IMPRESSION: Adequate position of NG tube Impression dictated by: Dhruv Conroy M.D.08/18/2023 8:54 AM Dictation Location: [place] [address] Any impression(s) listed above is documentation that was entered by the reading physician into a diagnostic report(s) for Chelsea Diego JR. 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 SUSANA positive for [employer] OFFICER antibodies. Not sure about the clinical significant [...] <Electronically signed by MD Sury Winkler> 08/18/23 1130 [facility] Work Phone: 1([phone] 562-383203-24-2024 Progress note Author Geo Thomas [facility] August 17, 2023 4:21pm Note Date/Time August 17, 2023 4:2 1pm [facility] [address] [place] [address] Hospitalist Progress Note Signed Patient: Chelsea Diego JR MR#: [id number] : 1950 Acct:[id number] Age/Sex: 72 / M Adm Date: 4 Loc: Room: [address] [place] [address] Type: ADM IN Attending Dr: Geo Thomas [...] 81 Mg Tab.Chew NG-TUBE 08/16/24 15:59 DAILY [facility] Clopidogrel Bisulfate 75 mg 08/17/23 16:00 Clopidogrel Bisulfate 75 Mg Tablet NG-TUBE 08/16/24 15:59 DAILY [facility] Darbepoetin Abisai 60 mcg 08/13/23 09:05 [...] 250 Mg/5 Ml NG-TUBE 08/16/24 20:59 QPM [facility] Glucose 0 gm 08/01/23 08:05 Dextrose 40% [...] 21:53 Dextrose IV 08/04/24 10:14 0.6 mcg/kg/hr .[id number] [facility] 14.52 mls/hr Administration Protocol 0.2 MCG/KG/HR [...] 08/17/23 11:27 Lansoprazole Solutab *Nf* 30 Mg Tab.Rap.Dr OBRIEN [...] 07:43 Dextrose IV 08/04/24 10:14 1.5 mcg/kg/hr .[id number] [facility] 36.3 mls/hr Administration Protocol 0.2 MCG/KG/HR [...] sleep-wake cycle. Documented By: Geo Thomas DO 1616 Signed By: <Electronically signed by Geo Thomas DO> 08/17/23 1621 [facility] Work Phone: [phone]) [phone] Progress note Author Rancho Kay [facility] August 17, 2023 1:27pm Note Date/Time August 17, 2023 1:1 2pm [facility] [address] [place] [address] Nephrology Progress Note Signed Patient: Chelsea Diego JR MR#: [id number] : 1950 Acct:[id number] Age/Sex: 72 / M Adm Date: 4 Loc: Room: [address] [place] [address] Type: ADM IN Attending Dr: Geo Thomas [...] evidence of recovery. Patient was [facility]. Patient presented to [place] ER from his nursing facility with severe shortness of breath requiring intubation. Chest x-ray showed bilateral pulmonary infiltrate with possible pulmonary edema. Subsequently the patient was transferred to [facility] and he continues to be on [...] Skin: No rashes , warm to touch [place]: Somnolent but arousable. Musculoskeletal: No large joint [...] Puff/18 Gm Inhaler) 6 puff VENT Q6HR [facility] Stop: 07/31/24 11:59 Last Admin: 08/17/23 11:46 Dose: 6 puff Amlodipine Besylate (Amlodipine 10 Mg Tablet) 10 mg OG-TUBE DAILY [facility] Stop: 08/16/24 08:59 Last Admin: 08/17/23 11:27 Dose: 10 mg Darbepoetin Abisai (Darbepoetin Abisai In Polysorbat 60 Mcg/Ml Vial) 60 mcg IV- PUSHQWEEK [facility]; Protocol Stop: 08/12/24 09:04 Last Admin: [...] Mg/5 Ml Vial) 62.5 mg IV-PUSH We@0900 [facility] Stop: 08/12/24 09:04 Last Admin: 08/13/23 11:24 Dose: 62.5 mg Glucose (Dextrose 40% Gel 15 Gm Tube) 0 gm PO PRN PRN PRN Reason: Hypoglycemia Stop: 07/31/24 08:04 Heparin Sodium (Porcine) (Heparin 5,000 Unit/Ml Vial) 5,000 unit SUBCUT Q8HR [facility] Stop: 08/01/24 13:59 Last Admin: 08/17/23 [...] (Dextrose) 100 mls @ 4.84 mls/hr IV .[id number] [facility]; Protocol Stop: 08/04/24 10:14 Last Admin: 08/16/23 21:53 Dose: 0.6 mcg/kg/hr, 14.52 mls/hr Micafungin Sodium 100 mg/ (Sodium Chloride) 105 mls @ 105 mls/hr IV Q24H [facility] Stop: 08/21/23 13:59 Last Admin: 08/16/23 14:29 Dose: 105 mls/hr Insulin Aspart (Insulin Aspart 300 Units/3 Ml Insuln.Pen) 0 units SUBCUT Q6HR [facility]; Protocol Stop: 07/31/24 11:59 Last Admin: 08/17/23 05:32 Dose: 3 units Insulin Glargine (Insulin Glargine 300 Units/3 Ml Insuln.Pen) 25 units SUBCUT BID [facility] Stop: 08/15/24 20:59 Last Admin: 08/17/23 11:27 Dose: 25 units Lansoprazole (Lansoprazole Solutab *Nf* 30 Mg Tab.Rap.Dr) 30 mg PEG DAILY [facility] Stop: 08/16/24 08:59 Last Admin: 08/17/23 [...] reading physician into a diagnostic report(s) for Chelsea Diego JR. 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 SUSANA positive for [employer] antibodies. Not sure about the clinical significant [...] signed by Rancho Kay MD> 08/17/23 1327 [facility] Work Phone: [phone]) 981-704403-24-2024 Consult note Author Michael Ramírez [facility] August 17, 2023 11:04am Note Date/Time August 17, 2023 10: 24am [facility] [address] [place] [address] Infect. Disease Consult Note Signed Patient: Chelsea Diego JR MR#: [id number] : 1950 Acct:[id number] Age/Sex: 72 / M Adm Date: 4 Loc: Room: 2O4372-0 Type: ADM IN Attending Dr: Geo Thomas [...] on the night of the . CC: eGo Thomas DO [facility] Medical History (Updated 08/12/23 @ 15:45 [...] Puff/18 Gm Inhaler) 6 puff VENT Q6HR [facility] Stop: 07/31/24 11:59 Last Admin: 08/17/23 05:42 Dose: 6 puff Amlodipine Besylate (Amlodipine 10 Mg Tablet) 10 mg OG-TUBE DAILY [facility] Stop: 08/16/24 08:59 Darbepoetin Abisai (Darbepoetin Abisai In Polysorbat 60 Mcg/Ml Vial) 60 mcg IV- PUSHQWEEK [facility]; Protocol Stop: 08/12/24 09:04 Last Admin: [...] (Dextrose) 100 mls @ 4.84 mls/hr IV .[id number] [facility]; Protocol Stop: 08/04/24 10:14 Last Admin: 08/16/23 21:53 Dose: 0.6 mcg/kg/hr, 14.52 mls/hr Meropenem (Merrem) 0.5 gm in 100 mls @ 33.333 mls/hr IV Q24H [facility] Last Admin: 08/16/23 16:45 Dose: 33.33 mls/hr Micafungin Sodium 100 mg/ (Sodium Chloride) 105 mls @ 105 mls/hr IV Q24H [facility] Stop: 08/21/23 13:59 Last Admin: 08/16/23 14:29 Dose: 105 mls/hr Insulin Aspart (Insulin Aspart 300 Units/3 Ml Insuln.Pen) 0 units SUBCUT Q6HR [facility]; Protocol Stop: 07/31/24 11:59 Last Admin: 08/17/23 05:32 Dose: 3 units Insulin Glargine (Insulin Glargine 300 Units/3 Ml Insuln.Pen) 25 units SUBCUT BID [facility] Stop: 08/15/24 20:59 Last Admin: 08/16/23 21:55 Dose: 25 units Lansoprazole (Lansoprazole Solutab *Nf* 30 Mg Tab.Rap.Dr) 30 mg PEG DAILY [facility] Stop: 08/16/24 08:59 Magnesium Hydroxide (Magnesium Hydroxide Susp 30 Ml Udc) 30 ml PO DAILY PRN PRN Reason: Constipation Stop: 08/02/24 22:13 Metoprolol Tartrate (Metoprolol Tartrate 5 Mg/5 Ml Vial) 5 mg IV-PUSH Q4H PRN PRN Reason: Blood Pressure Stop: 08/13/24 12:28 Metoprolol Tartrate (Metoprolol Tartrate 50 Mg Tablet) 50 mg NG-TUBE BID [facility] Stop: 08/15/24 20:59 Last Admin: 08/16/23 21:54 Dose: 50 mg Quetiapine Fumarate (Quetiapine Fumarate 50 Mg Tablet) 50 mg PO BID.9A.2P [facility] Stop: 08/12/24 13:59 Last Admin: 08/16/23 [...] <Electronically signed by MD Michael Ramírez> 08/17/23 0105 [facility] Work Phone: 1(251) 748-861003-24-2024 Progress note Author Morales Mckeon [facility] August 17, 2023 10:48am Note Date/Time August 17, 2023 10: 46am [facility] [address] [place] [address] Pulmonology Progress Note Signed Patient: Chelsea Diego JR MR#: [id number] : 1950 Acct:[id number] Age/Sex: 72 / M Adm Date: 4 Loc: Room: [address] [place] [address] Type: ADM IN Attending Dr: Geo Thomas [...] at day time back to AC/VC at [facility] Started on Micafungin 08/14 ID following Will defer antibiotic management to ID Waiting [facility] approval Continue supportive care. Documented By: Morales Mckeon MD 1043 Signed By: <Electronically signed by Morales Mckeon MD> 08/17/238 [facility] Work Phone: 1([phone]) 472-284503-23-2024 Progress note Author Geo Thomas [facility] August 16, 2023 8:48pm Note Date/Time August 16, 2023 8:4 8pm [facility] [address] [place] [address] Hospitalist Progress Note Signed Patient: Chelsea Diego JR MR#: [id number] : 1950 Acct:[id number] Age/Sex: 72 / M Adm Date: 4 Loc: Room: [address] [place] [address] Type: ADM IN Attending Dr: Geo Thomas [...] 17:55 Dextrose IV 08/04/24 10:14 Not Given .[id number] KACI Protocol 0.2 MCG/KG/HR Meropenem 0.5 gm [...] 08/17/23 09:00 Lansoprazole Solutab *Nf* 30 Mg Tab.Rap. PEG 08/16/24 08:59 DAILY KACI Magnesium Hydroxide 30 [...] 07:43 Dextrose IV 08/04/24 10:14 1.5 mcg/kg/hr .[id number] KACI 36.3 mls/hr Administration Protocol 0.2 MCG/KG/HR [...] <Electronically signed by Geo Thomas DO> 08/16/232047 [facility] Work Phone: 1(451) 972-613803-23-2024 Progress note Author Rancho Kay [facility] August 16, 2023 11:11am Note Date/Time August 16, 2023 11: 07am [facility] [address] [place], [place] [address] Nephrology Progress Note Signed Patient: Chelsea Diego JR MR#: [id number] : 1950 Acct:[id number] Age/Sex: 72 / M Adm Date: 4 Loc: Room: [address] [place] [address] Type: ADM IN Attending Dr: Geo Thomas [...] evidence of recovery. [facility] Patient presented to [place] ER from his nursing facility with severe shortness of breath requiring intubation. Chest x-ray showed bilateral pulmonary infiltrate with possible pulmonary edema. Subsequently the patient was transferred to [facility] and he continues to be on [...] Skin: No rashes , warm to touch [place]: Somnolent but arousable. Musculoskeletal: No large joint swelling or tenderness Objective Intake and Output I&O: Intake & Output 08/13/23 08/14/23 08/15/23 08/16/23 23:59 23:59 23:59 23:59 Intake Total 1452 / 1452 1276 / 1276 1945 / 1945 376 / 376 Output Total 2739 / 2739 145 / 145 2656 / 2656 10 Balance -1287 / -1287 1131 / 1131 [...] Puff/18 Gm Inhaler) 6 puff VENT Q6HR [facility] Stop: 07/31/24 11:59 Last Admin: 08/16/23 05:44 Dose: 6 puff Amlodipine Besylate (Amlodipine 5 Mg Tablet) 5 mg OG-TUBE DAILY [facility] Stop: 08/09/24 08:59 Last Admin: 08/16/23 10:29 Dose: 5 mg Darbepoetin Abisai (Darbepoetin Abisai In Polysorbat 60 Mcg/Ml Vial) 60 mcg IV- PUSHQWEEK [facility]; Protocol Stop: 08/12/24 09:04 Last Admin: [...] Q8HR KACI Stop: 08/01/24 13:59 Last Admin: 08/16/23 06:19 [...] (Dextrose) 100 mls @ 4.84 mls/hr IV .[id number] [facility]; Protocol Stop: 08/04/24 10:14 Last Admin: 08/15/23 17:55 Dose: Not Given Meropenem (Merrem) 0.5 gm in 100 mls @ 33.333 mls/hr IV Q24H [facility] Last Admin: 08/15/23 16:40 Dose: 33.33 mls/hr Micafungin Sodium 100 mg/ (Sodium Chloride) 105 mls @ 105 mls/hr IV Q24H [facility] Stop: 08/21/23 13:59 Last Infusion: 08/15/23 15:40 Dose: Infused Insulin Aspart (Insulin Aspart 300 Units/3 Ml Insuln.Pen) 0 units SUBCUT Q6HR [facility]; Protocol Stop: 07/31/24 11:59 Last Admin: 08/16/23 06:19 Dose: 4 units Insulin Glargine (Insulin Glargine 300 Units/3 Ml Insuln.Pen) 20 units SUBCUT BID [facility] Stop: 08/14/24 20:59 Last Admin: 08/16/23 10:29 Dose: 20 units Magnesium Hydroxide (Magnesium Hydroxide Susp 30 Ml Udc) 30 ml PO DAILY PRN PRN Reason: Constipation Stop: 08/02/24 22:13 Metoprolol Tartrate (Metoprolol Tartrate 5 Mg/5 Ml Vial) 5 mg IV-PUSH Q4H PRN PRN Reason: Blood Pressure Stop: 08/13/24 12:28 Metoprolol Tartrate (Metoprolol Tartrate 25 Mg Tablet) 25 mg NG-TUBE Q8H [facility] Stop: 08/14/24 14:59 Last Admin: 08/16/23 06:19 Dose: 25 mg Midazolam HCl (Midazolam/Pf 2 Mg/2 Ml Vial) 4 mg IV-PUSH ONCE PRN PRN Reason: sedation Last Admin: 08/08/23 13:00 Dose: 4 mg Pantoprazole Sodium (Pantoprazole 40 Mg Vial) 40 mg IV-PUSH DAILY [facility] Stop: 07/31/24 08:59 Last Admin: 08/16/23 10:29 [...] reading physician into a diagnostic report(s) for Chelsea Diego JR. 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 SUSANA positive for [employer] antibodies. Not sure about the clinical significant [...] * Documented By: Rancho Kay MD 08/16/23 110 Signed By: <Electronically signed by Rancho Kay MD> 08/16/23 1111 [facility] Work Phone: 1([phone]) 353-281703-23-2024 Progress note Author Morales Mckeon [facility] August 16, 2023 10:00am Note Date/Time August 16, 2023 9:5 0am [facility] [address] [place] [address] Pulmonology Progress Note Signed Patient: Chelsea Diego JR MR#: [id number] : 1950 Acct:[id number] Age/Sex: 72 / M Adm Date: 4 Loc: Room: [address] [place] [address] Type: ADM IN Attending Dr: Geo Thomas [...] at day time back to AC/VC at [facility] On Meropenem Started on Micafungin 08/14 ID consult Continue supportive care. Documented By: Morales Mckeon MD 0948 Signed By: <Electronically signed by Morales Mckeon MD> 08/16/23 1000 [facility] Work Phone: 1([phone] 441-813203-22-2024 Progress note Author Pravin iRvers [facility] August 15, 2023 3:47pm Note Date/Time August 15, 2023 3:3 6pm [facility] [address] [place] [address] Neurology Progress Note Signed Patient: Chelsea Diego JR MR#: [id number] : 1950 Acct:[id number] Age/Sex: 72 / M Adm Date: 4 Loc: Room: [address] [place] [address] Type: ADM IN Attending Dr: Geo Thomas [...] <Electronically signed by Pravin Rivers DO> 08/15/23 1545 [facility] Work Phone: [phone] 256-379703-22-2024 Progress note Author Rancho Kay [facility] August 15, 2023 12:32pm Note Date/Time August 15, 2023 11: 40am [facility] [address] [place] [address] Nephrology Progress Note Signed Patient: Chelsea Diego JR MR#: [id number] : 1950 Acct:[id number] Age/Sex: 72 / M Adm Date: 4 Loc: Room: [address] [place] [address] Type: ADM IN Attending Dr: Geo Thomas [...] evidence of recovery. [facility]. Patient presented to [place] ER from his nursing facility with severe shortness of breath requiring intubation. Chest x-ray showed bilateral pulmonary infiltrate with possible pulmonary edema. Subsequently the patient was transferred to [facility] and he continues to be on [...] Skin: No rashes , warm to touch [place]: Somnolent but arousable. Musculoskeletal: No large joint [...] Puff/18 Gm Inhaler) 6 puff VENT Q6HR [facility] Stop: 07/31/24 11:59 Last Admin: 08/15/23 05:13 Dose: 6 puff Amlodipine Besylate (Amlodipine 5 Mg Tablet) 5 mg OG-TUBE DAILY [facility] Stop: 08/09/24 08:59 Last Admin: 08/15/23 09:25 Dose: 5 mg Darbepoetin Abisai (Darbepoetin Abisai In Polysorbat 60 Mcg/Ml Vial) 60 mcg IV- PUSHQWEEK [facility]; Protocol Stop: 08/12/24 09:04 Last Admin: [...] Mg/5 Ml Vial) 62.5 mg IV-PUSH We@0900 [facility] Stop: 08/12/24 09:04 Last Admin: 08/13/23 11:24 Dose: 62.5 mg Glucose (Dextrose 40% Gel 15 Gm Tube) 0 gm PO PRN PRN PRN Reason: Hypoglycemia Stop: 07/31/24 08:04 Heparin Sodium (Porcine) (Heparin 5,000 Unit/Ml Vial) 5,000 unit SUBCUT Q8HR [facility] Stop: 08/01/24 13:59 Last Admin: 08/15/23 [...] (Dextrose) 100 mls @ 4.84 mls/hr IV .[id number] [facility]; Protocol Stop: 08/04/24 10:14 Last Admin: 08/14/23 20:56 Dose: Not Given Meropenem (Merrem) 0.5 gm in 100 mls @ 33.333 mls/hr IV Q24H [facility] Last Admin: 08/14/23 17:13 Dose: 33.33 mls/hr Insulin Aspart (Insulin Aspart 300 Units/3 Ml Insuln.Pen) 0 units SUBCUT Q6HR [facility]; Protocol Stop: 07/31/24 11:59 Last Admin: 08/15/23 06:33 Dose: 3 units Insulin Glargine (Insulin Glargine 300 Units/3 Ml Insuln.Pen) 20 units SUBCUT BID [facility] Stop: 08/14/24 20:59 Magnesium Hydroxide (Magnesium Hydroxide [...] reading physician into a diagnostic report(s) for Chelsea Diego JR. I have reviewed the report(s) [...] was 1.1 mg/dL. Patient gets dialysis on MW schedule (2) Acute pulmonary edema: Assessment/Problem Details: [...] Assessment/Problem Details: He has a type II MT likely due to demand ischemia in setting [...] anti-GBM antibodies are negative. SUSANA positive for [employer] antibodies. Not sure about the clinical significant [...] signed by Rancho Kay MD> 08/15/23 1232 [facility] Work Phone: [phone] 573-662803-22-2024 Progress note Author Morales Mckeon [facility] August 15, 2023 11:57am Note Date/Time August 15, 2023 10: 43am [facility] [address] [place] [address] Pulmonology Progress Note Signed with Addenda Patient: Chelsea Diego JR MR#: [id number] : 1950 Acct:[id number] Age/Sex: 72 / M Adm Date: 4 Loc: Room: [address] [place] [address] Type: ADM IN Attending Dr: Geo Thomas [...] at day time back to AC/VC at [facility] Discontinue Vancomycin Continue empiric antibiotics Continue supportive care. Documented By: Morales Mckeon MD 1041 Signed By: <Electronically signed by Morales Mckeon MD> 08/15/23 1151 [facility] Work Phone: [phone] Progress note Author Geo Thomas [facility] August 15, 2023 10:15am Note Date/Time August 15, 2023 9:4 2am [facility] [address] [place], [place] [address] Hospitalist Progress Note Signed Patient: Chelsea Diego JR MR#: [id number] : 1950 Acct:[id number] Age/Sex: 72 / M Adm Date: 4 Loc: Room: [address] [place] [address] Type: ADM IN Attending Dr: Geo Thomas [...] 20:56 Dextrose IV 08/04/24 10:14 Not Given .[id number] KACI Protocol 0.2 MCG/KG/HR Meropenem 0.5 gm [...] 07:43 Dextrose IV 08/04/24 10:14 1.5 mcg/kg/hr .[id number] K[facility]I 36.3 mls/hr Administration Protocol 0.2 MCG/KG/HR [...] <Electronically signed by Geo Thomas DO> 08/15/23 1015 [facility] Work Phone: [phone]) [phone] Progress note Author Rancho Kay [facility] August 14, 2023 1:03pm Note Date/Time August 14, 2023 1:0 3pm [facility] [address] [place] [address] Nephrology Progress Note Signed Patient: Chelsea Diego JR MR#: [id number] : 1950 Acct:[id number] Age/Sex: 72 / M Adm Date: 4 Loc: Room: [address] [place] [address] Type: ADM IN Attending Dr: Geo Thomas [...] evidence of recovery. [facility]. Patient presented to [place] ER from his nursing facility with severe shortness of breath requiring intubation. Chest x-ray showed bilateral pulmonary infiltrate with possible pulmonary edema. Subsequently the patient was transferred to [facility] and he continues to be on [...] IV potassium chloride this manage by the syrup maker cook. He had multiple bowel movements overnight. He [...] Skin: No rashes , warm to touch [place]: Somnolent but arousable. Musculoskeletal: No large joint [...] Puff/18 Gm Inhaler) 6 puff VENT Q6HR [facility] Stop: 07/31/24 11:59 Last Admin: 08/14/23 12:33 Dose: 6 puff Amlodipine Besylate (Amlodipine 5 Mg Tablet) 5 mg OG-TUBE DAILY [facility] Stop: 08/09/24 08:59 Last Admin: 08/14/23 08:42 Dose: 5 mg Darbepoetin Abisai (Darbepoetin Abisai In Polysorbat 60 Mcg/Ml Vial) 60 mcg IV- PUSHQWEEK [facility]; Protocol Stop: 08/12/24 09:04 Last Admin: [...] (Dextrose) 100 mls @ 4.84 mls/hr IV .[id number] [facility]; Protocol Stop: 08/04/24 10:14 Last Titration: 08/14/23 08:57 Dose: 0 mcg/kg/hr, 0 mls/hr Meropenem (Merrem) 0.5 gm in 100 mls @ 33.333 mls/hr IV Q24H [facility] Last Admin: 08/13/23 17:18 Dose: 33.33 mls/hr Potassium Chloride 40 meq/ (Sodium Chloride) 520 mls @ 130 mls/hr IV ONCE ONE Stop: 08/14/23 13:59 Last Admin: 08/14/23 10:57 Dose: 130 mls/hr Insulin Aspart (Insulin Aspart 300 Units/3 Ml Insuln.Pen) 0 units SUBCUT Q6HR [facility]; Protocol Stop: 07/31/24 11:59 Last Admin: 08/14/23 12:03 Dose: 4 units Insulin Glargine (Insulin Glargine 300 Units/3 Ml Insuln.Pen) 10 units SUBCUT BID [facility] Stop: 08/12/24 20:59 Last Admin: 08/14/23 08:43 Dose: 10 units Magnesium Hydroxide (Magnesium Hydroxide Susp 30 Ml Udc) 30 ml PO DAILY PRN PRN Reason: Constipation Stop: 08/02/24 22:13 Metoprolol Tartrate (Metoprolol Tartrate 5 Mg/5 Ml Vial) 5 mg IV-PUSH Q4H PRN PRN Reason: Blood Pressure Stop: 08/13/24 12:28 Metoprolol Tartrate (Metoprolol Tartrate 25 Mg Tablet) 25 mg NG-TUBE BID [facility] Stop: 08/13/24 20:59 Midazolam HCl (Midazolam/Pf 2 Mg/2 Ml Vial) 4 mg IV-PUSH ONCE PRN PRN Reason: sedation Last Admin: 08/08/23 13:00 Dose: 4 mg Pantoprazole Sodium (Pantoprazole 40 Mg Vial) 40 mg IV-PUSH DAILY [facility] Stop: 07/31/24 08:59 Last Admin: 08/14/23 [...] Nathan Lemus M.D.08/14/2023 11:20 AM Dictation Location: [place] [address] Any impression(s) listed above is documentation that was entered by the reading physician into a diagnostic report(s) for Chelsea Diego . 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 SUSANA positive for [employer] antibodies. Not sure about the clinical significant [...] <Electronically signed by Rancho Kay MD> 08/14/23 1303 [facility] Work Phone: [phone]) 170-893603-21-2024 Progress note Author Morales Mckeon [facility] August 14, 2023 12:02pm Note Date/Time August 14, 2023 8:5 6am [facility] [address] [place] [address] Pulmonology Progress Note Signed Patient: Chelsea Diego JR MR#: [id number] : 1950 Acct:[id number] Age/Sex: 72 / M Adm Date: 4 Loc: Room: [address] [place] [address] Type: ADM IN Attending Dr: Geo Thomas [...] / 1102 380 / 380 Output Total 30 / 9 45 / 45 Balance 380 / -1637 [...] signed by Morales Mckeon MD> 08/14/23 1202 [facility] Work Phone: [phone] Progress note Author Geo Thomas [facility] August 14, 2023 9:36am Note Date/Time August 14, 2023 9:0 6am [facility] [address] [place] [address] Hospitalist Progress Note Signed Patient: Chelsea Diego JR MR#: [id number] : 1950 Acct:[id number] Age/Sex: 72 / M Adm Date: 4 Loc: Room: [address] [place] [address] Type: ADM IN Attending Dr: Geo Thomas [...] any sedation. Continues to wave his head [id number], but not as rapid and not as [...] 08:57 Dextrose IV 08/04/24 10:14 0 mcg/kg/hr .[id number] KACI 0 mls/hr Titration Protocol 0.2 MCG/KG/HR [...] Not Given Q6HR [facility]I Protocol Insulin Glargine 10 units 08/13/23 21:00 [...] Vial IV-PUSH 07/31/24 08:59 40 mg DAILY KCAI Administration Quetiapine Fumarate 50 mg 08/13/23 14:00 [...] 07:43 Dextrose IV 08/04/24 10:14 1.5 mcg/kg/hr .[id number] [facility]I 36.3 mls/hr Administration Protocol 0.2 MCG/KG/HR [...] signed by Geo Thomas DO> 08/14/23 0936 [facility] Work Phone: [phone] 209-803303-20-2024 Progress note Author Geo Thomas [facility] August 13, 2023 8:46pm Note Date/Time August 13, 2023 8:4 6pm [facility] [address] [place] [address] Hospitalist Progress Note Signed Patient: Chelsea Diego JR MR#: [id number] : 1950 Acct:[id number] Age/Sex: 72 / M Adm Date: 4 Loc: Room: 5I9516-7 Type: ADM IN Attending Dr: Geo Thomas [...] 17:29 Dextrose IV 08/04/24 10:14 0.6 mcg/kg/hr .N64C92M KACI 14.52 mls/hr Titration Protocol 0.2 MCG/KG/HR [...] 07:43 Dextrose IV 08/04/24 10:14 1.5 mcg/kg/hr .[id number] KACI 36.3 mls/hr Administration Protocol 0.2 MCG/KG/HR [...] <Electronically signed by Geo Thomas DO> 08/13/232045 [facility] Work Phone: 1([phone]) 455-326103-20-2024 Progress note Author Morales Mckeon [facility] August 13, 2023 3:17pm Note Date/Time August 13, 2023 3:1 7pm [facility] [address] [place] [address] Pulmonology Progress Note Signed Patient: Chelsea Diego JR MR#: [id number] : 1950 Acct:[id number] Age/Sex: 72 / M Adm Date: 4 Loc: Room: [address] [place] [address] Type: ADM IN Attending Dr: Geo Thomas [...] / 692 592 / 692 Output Total 10 245 / 2709 2464 / 2709 Balance [...] supportive care. Documented By: Morales Mckeon MD 1517 Signed By: <Electronically signed by Morales Mckeon MD> 08/13/23 1517 [facility] Work Phone: 1(308) 433-409303-20-2024 Progress note Author Ranhco Kay [facility] August 13, 2023 11:29am Note Date/Time August 13, 2023 11: 29am [facility] [address] [place], [place] [address] Nephrology Progress Note Signed Patient: Chelsea Diego JR MR#: [id number] : 1950 Acct:[id number] Age/Sex: 72 / M Adm Date: 4 Loc: Room: [address] [place] [address] Type: ADM IN Attending Dr: Geo Thomas [...] evidence of recovery. [facility]. Patient presented to [place] ER from his nursing facility with severe shortness of breath requiring intubation. Chest x-ray showed bilateral pulmonary infiltrate with possible pulmonary edema. Subsequently the patient was transferred to [facility] and he continues to be on [...] Skin: No rashes , warm to touch [place]: Awake, alert, spontaneously shakes head and [id number]. Musculoskeletal: No joint swelling or limitation of [...] Puff/18 Gm Inhaler) 6 puff VENT Q6HR [facility] Stop: 07/31/24 11:59 Last Admin: 08/13/23 05:48 Dose: 6 puff Amlodipine Besylate (Amlodipine 5 Mg Tablet) 5 mg OG-TUBE DAILY [facility] Stop: 08/09/24 08:59 Last Admin: 08/13/23 09:09 Dose: 5 mg Chlorhexidine Gluconate (Chlorhexidine Gluconate 0.12% 15 Ml Udc) 15 ml MUCOUS MEM BID [facility] Stop: 07/31/24 08:59 Last Admin: 08/12/23 22:38 Dose: 15 ml Darbepoetin Abisai (Darbepoetin Abisai In Polysorbat 60 Mcg/Ml Vial) 60 mcg IV- PUSHQWEEK [facility]; Protocol Stop: 08/12/24 09:04 Dextrose (Dextrose 50% In Water 25 Gm/50 Ml Syringe) 0 gm IV-PUSH PRN PRN PRN Reason: Hypoglycemia Stop: 07/31/24 08:04 Docusate Sodium (Docusate Liquid 100 Mg/10 Ml Udc) 100 mg PO BID [facility] Stop: 08/03/24 08:59 Last Admin: 08/13/23 09:16 Dose: 100 mg Ferric Sodium Gluconate Complex (Sodium Ferric Gluconat/Sucrose 62.5 Mg/5 Ml Vial) 62.5 mg IV-PUSH We@0900 [facility] Stop: 08/12/24 09:04 Glucose (Dextrose 40% Gel 15 Gm Tube) 0 gm PO PRN PRN PRN Reason: Hypoglycemia Stop: 07/31/24 08:04 Heparin Sodium (Porcine) (Heparin 10,000 Unit/10 Ml Vial) 2,000 unit IV PRN PRN PRN Reason: Dialysis Stop: 08/01/24 09:40 Last Admin: 08/11/23 11:58 Dose: 2,000 unit Heparin Sodium (Porcine) (Heparin 5,000 Unit/Ml Vial) 5,000 unit SUBCUT Q8HR [facility] Stop: 08/01/24 13:59 Last Admin: 08/11/23 13:15 [...] (Dextrose) 100 mls @ 4.84 mls/hr IV .[id number] [facility]; Protocol Stop: 08/04/24 10:14 Last Titration: 08/13/23 11:16 Dose: 0.6 mcg/kg/hr, 14.52 mls/hr Midazolam HCl (Versed) 100 mg in 100 mls @ 1 mls/hr IV .Q24H [facility]; Protocol Stop: 02/01/24 22:59 Last Admin: 08/12/23 22:39 Dose: Not Given Meropenem (Merrem) 0.5 gm in 100 mls @ 33.333 mls/hr IV Q24H [facility] Insulin Aspart (Insulin Aspart 300 Units/3 Ml Insuln.Pen) 0 units SUBCUT Q6HR [facility]; Protocol Stop: 07/31/24 11:59 Last Admin: 08/13/23 06:34 Dose: 4 units Lactulose (Lactulose 20 Gm/30 Ml Udc) 20 gm PO BID [facility] Stop: 08/12/24 20:59 Magnesium Hydroxide (Magnesium [...] 40 Mg Vial) 40 mg IV-PUSH DAILY [facility] Stop: 07/31/24 08:59 Last Admin: 08/13/23 09:08 Dose: 40 mg Quetiapine Fumarate (Quetiapine Fumarate 50 Mg Tablet) 50 mg PO BID.9A.2P [facility] Stop: 08/12/24 13:59 Sennosides (Sennosides Syrup [...] Pallavi Hernandez M.D.08/12/2023 7:39 PM Dictation Location: [place] [address] 08/12/23 17:45 IMPRESSION: BILATERAL PARENCHYMAL CHANGES, GREATER ON THE RIGHT AND PLEURAL EFFUSIONS, LARGER ON THE LEFT. TINY PERICARDIAL EFFUSION. GRANULOMATOUS CHANGES. PROBABLE RIGHT RENAL CYST. NO BOWEL OR URINARY TRACT OBSTRUCTION. DIVERTICULOSIS. BLADDER WALL THICKENING, PROBABLY DUE TO UNDERDISTENTION THOUGH CORRELATION IS SUGGESTED TO EXCLUDE ANY POSSIBILITY OF CYSTITIS. Impression dictated by: Pallavi Hernandez M.D.08/12/2023 7:30 PM Dictation Location: [place] [address] Abdomen X-Ray 08/12/23 19:56 IMPRESSION: NG TUBE AT THE PROXIMAL STOMACH. ADVANCEMENT IS SUGGESTED. Impression dictated by: Pallavi Hernandez M.D.08/12/2023 8:42 PM Dictation Location: [place] [address] Any impression(s) listed above is documentation that was entered by the reading physician into a diagnostic report(s) for Chelsea Diego JR. 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 SUSANA positive for [employer] antibodies. Not sure about the clinical significant [...] <Electronically signed by Rancho Kay MD> 08/13/23 1120 [facility] Work Phone: [phone] 496-669203-19-2024 Progress note Author Geo Thomas [facility] August 12, 2023 9:13pm Note Date/Time August 12, 2023 3:0 6pm [facility] EN[facility] [address] [place] [address] Hospitalist Progress Note Signed Patient: Chelsea Diego JR MR#: [id number] : 1950 Acct:[id number] Age/Sex: 72 / M Adm Date: 4 Loc: Room: [address] [place] [address] Type: ADM IN Attending Dr: Geo Thomas [...] Dose Admin Acetaminophen 650 mg 08/01/23 14:13 03/14/24 16:44 Acetaminophen 325 Mg Tablet PO 03/08/25 14:12 650 mg Q6H PRN Administration Pain Albuterol 6 puff 08/01/23 12:00 08/12/23 05:12 Albuterol Hfa 200 Puff/18 Gm Inhaler VENT 07/31/24 11:59 6 puff Q6HR KACI Administration Amlodipine Besylate 5 mg 08/10/23 09:00 08/12/23 09:00 Amlodipine 5 Mg Tablet OG-TUBE 08/09/24 08:59 5 mg DAILY KAIC Administration Chlorhexidine Gluconate 15 ml 08/01/23 09:00 [...] 08:58 Dextrose IV 08/04/24 10:14 1 mcg/kg/hr .[id number] KACI 24.2 mls/hr Administration Protocol 0.2 MCG/KG/HR [...] 07:43 Dextrose IV 08/04/24 10:14 1.5 mcg/kg/hr .[id number] KACI 36.3 mls/hr Administration Protocol 0.2 MCG/KG/HR [...] By: <Electronically signed by Geo Thomas DO> 08/12/23 1819 [facility] Work Phone: [phone] Progress note Author Morales Mckeon [facility] August 12, 2023 5:58pm Note Date/Time August 12, 2023 5:4 8pm [facility] EN[facility] [address] [place] [address] Pulmonology Progress Note Signed Patient: Chelsea Diego JR MR#: [id number] : 1950 Acct:[id number] Age/Sex: 72 / M Adm Date: 4 Loc: Room: [address] [place] [address] Type: ADM IN Attending Dr: Geo Thomas [...] <Electronically signed by Morales Mckeon MD> 08/12/23 1755 [facility] Work Phone: [phone] Consult note Author Tori Juan [facility] August 12, 2023 3:47pm Note Date/Time August 12, 2023 3:1 6pm [facility] EN[facility] [address] [place] [address] Podiatry Consult Note Signed Patient: Chelsea Diego JR MR#: [id number] : 1950 Acct:[id number] Age/Sex: 72 / M Adm Date: 4 Loc: Room: [address] [place] [address] Type: ADM IN Attending Dr: Geo Thomas [...] up at rehab following. He came to [facility] using oxygen and was eventually intubated due to Influenza A. He is seen in the ICU and is currently intubated. Podiatry is consulted to re-evaluate wound and incision to the left foot with dehiscense. No other complaints. Review of Systems Review of Systems Unobtainable due to endotracheal tube [facility] Medical History (Updated 08/12/23 @ 15:45 by [...] By: <Electronically signed by TOY Juan> 08/12/23 1547 [facility] Work Phone: [phone] Progress note Author Pravin Rivers [facility] August 12, 2023 1:02pm Note Date/Time August 12, 2023 1:0 2pm [facility] EN[facility] [address] [place] [address] Neurology Progress Note Signed Patient: Chelsea Diego JR MR#: [id number] : 1950 Acct:[id number] Age/Sex: 72 / M Adm Date: 4 Loc: Room: [address] [place] [address] Type: ADM IN Attending Dr: Geo Thomas [...] Plan Documented By: Pravin Rivers DO 08/12/23 1258 Signed By: <Electronically signed by Pravin Rivers DO> 08/12/23 9879 [facility] Work Phone: [phone] Progress note Author Rancho Kay [facility] August 12, 2023 12:39pm Note Date/Time August 12, 2023 12: 39pm [facility] EN[facility] [address] [place] [address] Nephrology Progress Note Signed Patient: Chelsea Diego JR MR#: [id number] : 1950 Acct:[id number] Age/Sex: 72 / M Adm Date: 4 Loc: Room: [address] [place] [address] Type: ADM IN Attending Dr: Geo Thomas [...] evidence of recovery. Patient was [facility] to [facility]. Patient presented to [place] ER from his nursing facility with severe shortness of breath requiring intubation. Chest x-ray showed bilateral pulmonary infiltrate with possible pulmonary edema. Subsequently the patient was transferred to [facility] and he continues to be on [...] Skin: No rashes , warm to touch [place]: Intubated and sedated. Musculoskeletal: No joint swelling or limitation of movement Objective Intake and Output I&O: Intake & Output 08/09/23 08/10/23 08/11/23 08/12/23 23:59 23:59 23:59 23:59 Intake Total 730 / 730 920 / 920 1000 / 1000 300 / 300 Output Total 30 / 30 85 / 85 2564 / 2564 15 / 15 Balance 700 / 700 835 / [...] (Dextrose) 100 mls @ 4.84 mls/hr IV .[id number] [facility]; Protocol Stop: 08/04/24 10:14 Last Admin: 08/12/23 08:58 Dose: 1 mcg/kg/hr, 24.2 mls/hr Midazolam HCl (Versed) 100 mg in 100 mls @ 1 mls/hr IV .Q24H [facility]; Protocol Stop: 02/01/24 22:59 Last Admin: 08/12/23 01:46 Dose: Not Given Clindamycin Phosphate (Cleocin) 900 mg in 50 mls @ 100 mls/hr IV PREOP ONE Stop: 08/12/23 15:29 Meropenem (Merrem) 0.5 gm in 100 mls @ 33.333 mls/hr IV Q24H [facility] Insulin Aspart (Insulin Aspart 300 Units/3 Ml Insuln.Pen) 0 units SUBCUT Q6HR [facility]; Protocol Stop: 07/31/24 11:59 Last Admin: 08/12/23 12:03 Dose: 14 units Magnesium Hydroxide (Magnesium Hydroxide Susp 30 Ml Udc) 30 ml PO DAILY PRN PRN Reason: Constipation Stop: 08/02/24 22:13 Metoclopramide HCl (Metoclopramide 10 Mg/2 Ml Vial) 5 mg IV-PUSH Q6HR [facility] Stop: 08/10/24 11:59 Last Admin: 08/12/23 [...] 40 Mg Vial) 40 mg IV-PUSH DAILY [facility] Stop: 07/31/24 08:59 Last Admin: 08/12/23 09:00 Dose: 40 mg Sennosides (Sennosides Syrup 8.8 Mg/5 Ml Udc) 8.8 mg PO BID [facility] Stop: 08/03/24 08:59 Last Admin: 08/12/23 [...] Turbid A Urine pH 5.0 Ur Specific Mary[place] 1.027 Urine Protein 300 H Urine Glucose (UA) Normal Urine Ketones Trace H Urine Occult Blood 1+ H Urine Nitrite Negative Ur Leukocyte Esterase 3+ H Urine RBC 3-4 Urine WBC 50-100 H Urine Bacteria 1+ H Radiology Impressions Impressions - last 24 hours: Impressions Chest X-Ray 08/12/23 05:00 IMPRESSION: Improving parenchymal densities. Impression dictated by: Dhruv Conroy M.D.08/12/2023 7:44 AM Dictation Location: [place] [address] Any impression(s) listed above is documentation that was entered by the reading physician into a diagnostic report(s) for [place] JR. 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 SUSANA positive for [employer] antibodies. Not sure about the clinical significant [...] output. Documented By: Rancho Kay MD 08/12/23 1234 Signed By: <Electronically signed by Rancho Kay MD> 08/12/23 3876 [facility] Work Phone: [phone] Progress note Author Mehul Garrett [facility] August 12, 2023 9:28am Note Date/Time August 11, 2023 8:2 2am [facility] EN[facility] [address] [place] [address] Pulmonology Progress Note Signed Patient: Chelsea Diego JR MR#: [id number] : 1950 Acct:[id number] Age/Sex: 72 / M Adm Date: 4 Loc: Room: [address] [place] [address] Type: ADM IN Attending Dr: Geo Thomas [...] 920 200 / 200 Output Total 15 / 85 48 / 48 Balance 385 / 835 [...] care. Documented By: Mehul Garrett MD 4 4021 Signed By: <Electronically signed by MD Mehul Garrett> 08/12/23 0928 [facility] Work Phone: [phone] Consult note Author Darryl Britt [facility] August 11, 2023 5:14pm Note Date/Time August 11, 2023 5:1 4pm [facility] EN[facility] [address] [place] [address] ENT Consult Note Signed Patient: Chelsea Diego JR MR#: [id number] : 1950 Acct:[id number] Age/Sex: 72 / M Adm Date: 4 Loc: Room: [address] [place] [address] Type: ADM IN Attending Dr: Geo Thomas [...] and no additional complaints, except as documented [facility] Medical History (Updated 08/11/23 @ 17:14 [...] (Dextrose) 100 mls @ 4.84 mls/hr IV .[id number] K[facility]I; Protocol Stop: 08/04/24 10:14 Last Admin: 08/11/23 11:55 Dose: 0.6 mcg/kg/hr, 14.52 mls/hr Midazolam HCl (Versed) 100 mg in 100 mls @ 1 mls/hr IV .Q24H [facility]; Protocol Stop: 02/01/24 22:59 Last Admin: 08/10/23 22:07 Dose: Not Given Insulin Aspart (Insulin Aspart 300 Units/3 Ml Insuln.Pen) 0 units SUBCUT Q6HR [facility]; Protocol Stop: 07/31/24 11:59 Last Admin: 08/11/23 13:16 Dose: 2 units Magnesium Hydroxide (Magnesium Hydroxide Susp 30 Ml Udc) 30 ml PO DAILY PRN PRN Reason: Constipation Stop: 08/02/24 22:13 Metoclopramide HCl (Metoclopramide 10 Mg/2 Ml Vial) 5 mg IV-PUSH Q6HR [facility] Stop: 08/10/24 11:59 Last Admin: 08/11/23 [...] DAILY KACI Stop: 07/31/24 08:59 Last Admin: 08/11/23 08:46 Dose: 40 mg Sennosides (Sennosides Syrup 8.8 Mg/5 Ml Udc) 8.8 mg PO BID [facility] Stop: 08/03/24 08:59 Last Admin: 08/11/23 [...] are open and heis moving his head [id number]. He does not respond to verbal stimuli. [...] % (Auto) N/A, Lymph % (Auto) N/A, [place] % (Auto) N/A, Eos % (Auto) N/A, Baso % (Auto) N/A, Nucleat RBC Rel Count N/A, Neut # (Auto) N/A, Lymph # (Auto) N/A, [place] # (Auto) N/A, Eos # (Auto) N/A, [...] Set Respiration Rate 14, Vent Mode Ac, [id number], Tidal Volume 500, PEEP 5, Critical Value [...] % (Auto) 75.8, Lymph % (Auto) 7.4, [place] % (Auto) 13.8, Eos % (Auto) 2.5, Baso % (Auto) 0.5, Nucleat RBC Rel Count 0.0, Neut # (Auto) 14.7 H, Lymph # (Auto) 1.4, [place] # (Auto) 2.7 H, Eos # (Auto) [...] % (Auto) 75.6, Lymph % (Auto) 8.4, [place] % (Auto) 14.1, Eos % (Auto) 1.6, Baso % (Auto) 0.3, Nucleat RBC Rel Count 0.1, Neut # (Auto) 13.9 H, Lymph # (Auto) 1.6, [place] # (Auto) 2.6 H, Eos # (Auto) [...] <Electronically signed by DO Darryl Britt> 08/11/23 8284 [facility] Work Phone: [phone] Progress note Author Rancho Kay [facility] August 11, 2023 11:09am Note Date/Time August 11, 2023 11: 10am [facility] ENTER [address] [place] [address] Nephrology Progress Note Signed Patient: Chelsea Diego JR MR#: [id number] : 1950 Acct:[id number] Age/Sex: 72 / M Adm Date: 4 Loc: Room: [address] [place] [address] Type: ADM IN Attending Dr: Geo Thomas [...] evidence of recovery. Patient was [facility] to [facility]. Patient presented to [place] ER from his nursing facility with severe shortness of breath requiring intubation. Chest x-ray showed bilateral pulmonary infiltrate with possible pulmonary edema. Subsequently the patient was transferred to [facility] and he continues to be on [...] Skin: No rashes , warm to touch [place]: Intubated and sedated. Musculoskeletal: No joint swelling [...] Ml Udc) 15 ml MUCOUS MEM BID [facility] Stop: 07/31/24 08:59 Last Admin: 08/11/23 08:46 Dose: 15 ml Dextrose (Dextrose 50% In Water 25 Gm/50 Ml Syringe) 0 gm IV-PUSH PRN PRN PRN Reason: Hypoglycemia Stop: 07/31/24 08:04 Docusate Sodium (Docusate Liquid 100 Mg/10 Ml Udc) 100 mg PO BID [facility] Stop: 08/03/24 08:59 Last Admin: 08/11/23 [...] 5,000 Unit/Ml Vial) 5,000 unit SUBCUT Q8HR [facility] Stop: 08/01/24 13:59 Last Admin: 08/11/23 [...] (Dextrose) 100 mls @ 4.84 mls/hr IV .[id number] [facility]I; Protocol Stop: 08/04/24 10:14 Last Titration: 08/11/23 10:17 Dose: 0.6 mcg/kg/hr, 14.52 mls/hr Midazolam HCl (Versed) 100 mg in 100 mls @ 1 mls/hr IV .Q24H [facility]; Protocol Stop: 02/01/24 22:59 Last Admin: 08/10/23 22:07 Dose: Not Given Insulin Aspart (Insulin Aspart 300 Units/3 Ml Insuln.Pen) 0 units SUBCUT Q6HR [facility]; Protocol Stop: 07/31/24 11:59 Last Admin: 08/11/23 05:58 Dose: 2 units Magnesium Hydroxide (Magnesium Hydroxide Susp 30 Ml Udc) 30 ml PO DAILY PRN PRN Reason: Constipation Stop: 08/02/24 22:13 Metoclopramide HCl (Metoclopramide 10 Mg/2 Ml Vial) 5 mg IV-PUSH Q6HR [facility] Stop: 08/10/24 11:59 Midazolam HCl (Midazolam/Pf 2 Mg/2 Ml Vial) 4 mg IV-PUSH Q3H PRN PRN Reason: Agitation Stop: 02/01/24 11:11 Last Admin: 08/05/23 22:41 Dose: 4 mg Midazolam HCl (Midazolam/Pf 2 Mg/2 Ml Vial) 4 mg IV-PUSH ONCE PRN PRN Reason: sedation Last Admin: 08/08/23 13:00 Dose: 4 mg Pantoprazole Sodium (Pantoprazole 40 Mg Vial) 40 mg IV-PUSH DAILY [facility] Stop: 07/31/24 08:59 Last Admin: 08/11/23 [...] Nathan Lemus M.D.08/10/2023 5:50 PM Dictation Location: [place] [address] Chest X-Ray 08/11/23 05:00 IMPRESSION: SIMILAR PARENCHYMAL CHANGES. Impression dictated by: Pallavi Hernandez M.D.08/11/2023 6:58 AM Dictation Location: [place] [address] Any impression(s) listed above is documentation that was entered by the reading physician into a diagnostic report(s) for Chelsea Diego JR. 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 SUSANA positive for [employer] antibodies. Not sure about the clinical significant [...] Garrett. Documented By: Rancho Kay MD 08/11/23 110 Signed By: <Electronically signed by Rancho Kay MD> 08/11/23 3945 [facility] Work Phone: [phone] Progress note Author Geo Thomas [facility] August 11, 2023 11:02am Note Date/Time August 11, 2023 10: 50am [facility] EN[facility] [address] [place] [address] Hospitalist Progress Note Signed Patient: Chelsea Diego JR MR#: [id number] : 1950 Acct:[id number] Age/Sex: 72 / M Adm Date: 4 Loc: Room: [address] [place] [address] Type: ADM IN Attending Dr: Geo Thomas [...] 10:17 Dextrose IV 08/04/24 10:14 0.6 mcg/kg/hr .[id number] KACI 14.52 mls/hr Titration Protocol 0.2 MCG/KG/HR [...] Udc PO 08/03/24 08:59 8.8 mg BID KCAI Administration Sodium Chloride 10 ml 08/01/23 08:07 [...] Encephalopathy: (8) Anemia of renal disease: [place] [address] Hospitalist Progress Note Signed Patient: Chelsea Diego JR MR#: [id number] : 1950 Acct:[id number] Age/Sex: 72 / M Adm Date: 08/01/23 Loc: Room: [address] [place] [address] Type: ADM INAttending Dr: Vania Chacon MD [...] MUCOUS MEM 07/31/24 08:59 15 ml BID KCAI Administration Dextrose 0 gm 08/01/23 08:05 Dextrose [...] 07:43 Dextrose IV 08/04/24 10:14 1.5 mcg/kg/hr .[id number] KACI 36.3 mls/hr Administration Protocol 0.2 MCG/KG/HR [...] <Electronically signed by Geo Thomas DO> 08/11/23 1106 [facility] Work Phone: [phone] 500-784703-18-2024 [facility] Progress note Author Eulogio Ruvalcaba [facility] August 10, 2023 2:43pm Note Date/Time August 10, 2023 2:4 3pm [facility] EN[facility] [address] [place] [address] Hospitalist Progress Note Signed Patient: Chelsea Diego JR MR#: [id number] : 1950 Acct:[id number] Age/Sex: 72 / M Adm Date: 4 Loc: Room: 8L9865-1 Type: ADM IN Attending Dr: Eulogio Ruvalcaba MD Copies to: ~ Date of Service: 08/10/2023 Subjective Subjective Narrative: Seen and examined Patient was extubated at about 12 noon. He was intubated about 9 days. Patient is getting supplemental oxygen via nasal cannula. Activity Coordinator is following. No fever. Patient was slightly [...] 14:05 Dextrose IV 08/04/24 10:14 0.7 mcg/kg/hr .[id number] KACI 16.94 mls/hr Titration Protocol 0.2 MCG/KG/HR [...] heparin Documented By: Eulogio Ruvalcaba MD 08/10/23 1439 Signed By: <Electronically signed by Eulogio Ruvalcaba MD> 08/10/23 1443 [facility] Work Phone: [phone] Progress note Author Mehul Garrett [facility] August 10, 2023 2:03pm Note Date/Time August 10, 2023 10: 50am [facility] EN[facility] [address] [place] [address] Pulmonology Progress Note Signed Patient: Chelsea Diego JR MR#: [id number] : 1950 Acct:[id number] Age/Sex: 72 / M Adm Date: 4 Loc: Room: [address] [place] [address] Type: ADM IN Attending Dr: Eulogio Ruvalcaba [...] / 360 100 / 360 Output Total 20 / 30 55 / 55 Balance 240 / [...] signed by MD Mehul Garrett> 08/10/23 1403 [facility] Work Phone: [phone] Progress note Author Debbie Dennis [facility] August 10, 2023 10:54am Note Date/Time August 10, 2023 10: 27am [facility] EN[facility] [address] [place] [address] Neurology Progress Note Signed Patient: Chelsea Diego JR MR#: [id number] : 1950 Acct:[id number] Age/Sex: 72 / M Adm Date: 4 Loc: Room: [address] [place] [address] Type: ADM IN Attending Dr: Eulogio Ruvalcaba [...] <Electronically signed by DO Debbie Dennis> 08/10/23 1054 [facility] Work Phone: [phone] 232-543703-17-2024 Progress note Author Sanket Hammer [facility] August 10, 2023 10:31am Note Date/Time August 10, 2023 10: 31am [facility] [address] [place] [address] Nephrology Progress Note Signed Patient: Chelsea Diego JR MR#: [id number] : 1950 Acct:[id number] Age/Sex: 72 / M Adm Date: 4 Loc: Room: [address] [place] [address] Type: ADM IN Attending Dr: Eulogio Ruvalcaba [...] evidence of recovery. Patient was [facility] to [facility]. Patient presented to [place] ER from his nursing facility with severe shortness of breath requiring intubation. Chest x-ray showed bilateral pulmonary infiltrate with possible pulmonary edema. Subsequently the patient was transferred to [facility] and he continues to be on [...] (Dextrose) 100 mls @ 4.84 mls/hr IV .[id number] [facility]I; Protocol Stop: 08/04/24 10:14 Last Admin: 08/10/23 08:03 Dose: 1.2 mcg/kg/hr, 29.04 mls/hr Midazolam HCl (Versed) 100 mg in 100 mls @ 1 mls/hr IV .Q24H [facility]; Protocol Stop: 02/01/24 22:59 Last Titration: 08/10/23 09:47 Dose: 0 mg/hr, 0 mls/hr Insulin Aspart (Insulin Aspart 300 Units/3 Ml Insuln.Pen) 0 units SUBCUT Q6HR [facility]I; Protocol Stop: 07/31/24 11:59 Last Admin: 08/10/23 [...] 40 Mg Vial) 40 mg IV-PUSH DAILY [facility] Stop: 07/31/24 08:59 Last Admin: 08/10/23 [...] Nathan Lemus M.D.08/08/2023 3:36 PM Dictation Location: [facility] ADDENDUM: 08/09/23 1143 IMPRESSION: There is a T2 FLAIR hyperintense structure projecting to the right of midline emanating from the falx along the interhemispheric fissure measuring 1.6 x 0.8 x1.0 cm. 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 No acute intracranial pathology. Chronic age-related neurodegenerative changes are noted, as above. Impression dictated by: Nathan Lemus M.D.08/09/2023 11:41 AM Dictation Location: [facility] Chest X-Ray 08/10/23 05:00 IMPRESSION: Unchanged chest. Impression dictated by: Nathan Lemus M.D.08/10/2023 8:01 AM Dictation Location: [facility] Any impression(s) listed above is documentation that was entered by the reading physician into a diagnostic report(s) for Chelsea Diego JR. I have reviewed the report(s) [...] anti-GBM antibodies are negative. SUSANA positive for [employer] antibodies. Not sure about the clinical significant [...] signed by Sanket Hammer MD> 08/10/23 1031 [facility] Work Phone: [phone] Progress note Author Eulogio Ruvalcaba [facility] August 09, 2023 2:29pm Note Date/Time August 09, 2023 2:2 9pm [facility] EN[facility] [address] [place] [address] Hospitalist Progress Note Signed Patient: Chelsea Diego JR MR#: [id number] : 1950 Acct:[id number] Age/Sex: 72 / M Adm Date: 4 Loc: Room: [address] [place] [address] Type: ADM IN Attending Dr: Eulogio Ruvalcaba [...] 12:37 Dextrose IV 08/04/24 10:14 1.2 mcg/kg/hr .[id number] KACI 29.04 mls/hr Administration Protocol 0.2 MCG/KG/HR [...] prophylaxis heparin Documented By: Eulogio Ruvalcaba MD 08/09/23 142 Signed By: <Electronically signed by Eulogio Ruvalcaba MD> 08/09/23 1429 [facility] Work Phone: [phone] Progress note Author Debbie Dennis [facility] August 09, 2023 1:14pm Note Date/Time August 09, 2023 11: 39am [facility] EN[facility] [address] [place] [address] Neurology Progress Note Signed Patient: Chelsea Diego JR MR#: [id number] : 1950 Acct:[id number] Age/Sex: 72 / M Adm Date: 4 Loc: Room: 8Q7828-7 Type: ADM IN Attending Dr: Eulogio Ruvalcaba [...] <Electronically signed by DO Debbie Dennis> 08/09/23 6488 [facility] Work Phone: [phone] Progress note Author [facility] August 09, 2023 11:41am Note Date/Time August 09, 2023 11: 41am [facility] EN[facility] [address] [place] [address] Nephrology Progress Note Signed Patient: Chelsea Diego JR MR#: [id number] : 1950 Acct:[id number] Age/Sex: 72 / M Adm Date: 4 Loc: Room: [address] [place] [address] Type: ADM IN Attending Dr: Eulogio Ruvalcaba [...] evidence of recovery. Patient was discharged to [facility]. Patient presented to [place] ER from his nursing facility with severe shortness of breath requiring intubation. Chest x-ray showed bilateral pulmonary infiltrate with possible pulmonary edema. Subsequently the patient was transferred to [facility] and he continues to be on [...] Puff/18 Gm Inhaler) 6 puff VENT Q6HR [facility] Stop: 07/31/24 11:59 Last Admin: 08/09/23 11:23 [...] 5,000 Unit/Ml Vial) 5,000 unit SUBCUT Q8HR [facility] Stop: 08/01/24 13:59 Last Admin: 08/09/23 [...] (Dextrose) 100 mls @ 4.84 mls/hr IV .[id number] KACI; Protocol Stop: 08/04/24 10:14 Last Admin: 08/09/23 09:13 Dose: 1.2 mcg/kg/hr, 29.04 mls/hr Midazolam HCl (Versed) 100 mg in 100 mls @ 1 mls/hr IV .Q24H [facility]; Protocol Stop: 02/01/24 22:59 Last Admin: 08/09/23 02:35 Dose: Not Given Magnesium Sulfate (Magnesium Sulf 2gm-*Swfi*) 2 gm in 50 mls @ 25 mls/hr IV ONCE ONE Stop: 08/09/23 12:12 Last Admin: 08/09/23 10:44 Dose: 25 mls/hr Insulin Aspart (Insulin Aspart 300 Units/3 Ml Insuln.Pen) 0 units SUBCUT Q6HR [facility]; Protocol Stop: 07/31/24 11:59 Last Admin: [...] DAILY KACI Stop: 07/31/24 08:59 Last Admin: 08/09/23 [...] Nathan Lemus M.D.08/08/2023 3:36 PM Dictation Location: [place] [address] Chest X-Ray 08/09/23 05:00 IMPRESSION: Perihilar vascular prominence and interstitial prominence are redemonstrated. Improving airspace opacities noted in the right perihilar region. Impression dictated by: Nathan Lemus M.D.08/09/2023 8:15 AM Dictation Location: [place] [address] Any impression(s) listed above is documentation that was entered by the reading physician into a diagnostic report(s) for Chelsea Diego JR. I have reviewed the report(s) [...] anti-GBM antibodies are negative. SUSANA positive for [employer]ICER antibodies. Not sure about the clinical significant [...] indicated. Documented By: Sanket Hammer MD 08/09/23 1138 Signed By: <Electronically signed by Sanket Hammer MD> 08/09/23 1141 [facility] Work Phone: [phone]) [phone] Progress note Author Mehul Garrett [facility] August 09, 2023 11:30am Note Date/Time August 09, 2023 9:2 9am [facility] [address] [place] [address] Pulmonology Progress Note Signed Patient: Chelsea Diego JR MR#: [id number] : 1950 Acct:[id number] Age/Sex: 72 / M Adm Date: 4 Loc: Room: [address] [place] [address] Type: ADM IN Attending Dr: Eulogio Ruvalcaba [...] <Electronically signed by MD Mehul Garrett> 08/09/23 6000 [facility] Work Phone: [phone] 475-596703-15-2024 Progress note Author Pravin Rivers [facility] August 08, 2023 2:10pm Note Date/Time August 08, 2023 2:1 0pm [facility] EN[facility] [address] [place] [address] Neurology Progress Note Signed Patient: Chelsea Diego JR MR#: [id number] : 1950 Acct:[id number] Age/Sex: 72 / M Adm Date: 4 Loc: Room: [address] [place] [address] Type: ADM IN Attending Dr: Vania Chacon [...] signed by Pravin Rivers DO> 08/08/23 1410 [facility] Work Phone: [phone]) [phone] Progress note Author Sanket Hammer [facility] August 08, 2023 12:08pm Note Date/Time August 08, 2023 12: 08pm [facility] EN[facility] [address] [place] [address] Nephrology Progress Note Signed Patient: Chelsea Diego JR MR#: [id number] : 1950 Acct:[id number] Age/Sex: 72 / M Adm Date: 4 Loc: Room: [address] [place] [address] Type: ADM IN Attending Dr: Vania Chacon [...] evidence of recovery. Patient [facility]. Patient presented to [place] [facility] from his nursing facility with severe shortness of breath requiring intubation. Chest x-ray showed bilateral pulmonary infiltrate with possible pulmonary edema. Subsequently the patient was transferred to [facility] and he continues to be on [...] L Mechanical Ventilation 40 08/08/23 08:00 08/08/23 10:00 08/08/23 10:00 08/08/23 10:00 08/08/23 10:00 08/08/23 10:00 08/08/23 10:00 Narrative: General: Patient is calm. No [...] 4643 / 4643 65 / 65 10 / 10 Balance 1543 / 1543 -2663 / [...] 5,000 Unit/Ml Vial) 5,000 unit SUBCUT Q8HR [facility] Stop: 08/01/24 13:59 Last Admin: 08/08/23 05:56 [...] (Dextrose) 100 mls @ 4.84 mls/hr IV .[id number] [facility]; Protocol Stop: 08/04/24 10:14 Last Titration: 08/08/23 07:43 Dose: 0.7 mcg/kg/hr, 16.94 mls/hr Midazolam HCl (Versed) 100 mg in 100 mls @ 1 mls/hr IV .Q24H [facility]; Protocol Stop: 02/01/24 22:59 Last Titration: 08/08/23 05:58 Dose: 2 mg/hr, 2 mls/hr Insulin Aspart (Insulin Aspart 300 Units/3 Ml Insuln.Pen) 0 units SUBCUT Q6HR [facility]; Protocol Stop: 07/31/24 11:59 Last Admin: 08/08/23 [...] DAILY KACI Stop: 07/31/24 08:59 Last Admin: 08/08/23 [...] FINDINGS. Impression dictated by: Georgi Simmons Jr., D.O.08/08/2023 8:26 AM Dictation Location: [place] [address] Any impression(s) listed above is documentation that was entered by the reading physician into a diagnostic report(s) for Chelsea Diego . I have reviewed the report(s) [...] anti-GBM antibodies are negative. SUSANA positive for [employer]ICER antibodies. Not sure about the clinical significant [...] as indicated. Documented By: Sanket Hammer MD 08/08/23 8897 Signed By: <Electronically signed by Sanket Hammer MD> 08/08/23 2830 [facility] Work Phone: [phone]) [phone] Progress note Author Mehul Garrett [facility] August 08, 2023 11:54am Note Date/Time August 08, 2023 8:3 2am [facility] [address] [place] [address] Pulmonology Progress Note Signed Patient: Chelsea Diego JR MR#: [id number] : 1950 Acct:[id number] Age/Sex: 72 / M Adm Date: 4 Loc: Room: [address] [place] [address] Type: ADM IN Attending Dr: Vania Chacon [...] / 1073 149 / 149 Output Total Balance 587 / 1008 139 / 139 [...] Content 5.7 L ABG Base Excess 2.8 5 Assessment/Plan Assessment/Plan (1) Acute hypoxic respiratory [...] care. Documented By: Mehul Garrett MD 4 [id number] Signed By: <Electronically signed by MD Mehul Garrett> 08/08/23 8630 [facility] Work Phone: [phone]) [phone] Progress note Author Vania Chacon [facility] August 08, 2023 10:42am Note Date/Time August 08, 2023 10: 42am [facility] [address] [place] [address] Hospitalist Progress Note Signed Patient: Chelsea Diego JR MR#: [id number] : 1950 Acct:[id number] Age/Sex: 72 / M Adm Date: 4 Loc: Room: [address] [place] [address] Type: ADM IN Attending Dr: Vania Chacon [...] Dose Route Start Last Admin Trade Name Shara PRN Reason Stop Dose Admin Acetaminophen 650 [...] 07:43 Dextrose IV 08/04/24 10:14 0.7 mcg/kg/hr .[id number] KACI 16.94 mls/hr Titration Protocol 0.2 MCG/KG/HR [...] signed by Vania Chacon MD> 08/08/23 1042 [facility] Work Phone: [phone] Progress note Author Mehul Garrett [facility] August 07, 2023 4:29pm Note Date/Time August 07, 2023 7:5 9am [facility] [address] [place] [address] Pulmonology Progress Note Signed Patient: Chelsea Diego JR MR#: [id number] : 1950 Acct:[id number] Age/Sex: 72 / M Adm Date: 4 Loc: Room: [address] [place] [address] Type: ADM IN Attending Dr: Vania Chacon [...] Content 5.8 L ABG Base Excess 1.9 14/500/40/5 Assessment/Plan Assessment/Plan (1) Acute hypoxic respiratory [...] signed by MD Mehul Garrett> 08/07/23 1629 [facility] Work Phone: [phone] Progress note Author Pravin Rivers [facility] August 07, 2023 1:55pm Note Date/Time August 07, 2023 1:5 5pm [facility] [address] [place] [address] Neurology Progress Note Signed Patient: Chelsea Diego JR MR#: [id number] : 1950 Acct:[id number] Age/Sex: 72 / M Adm Date: 4 Loc: Room: [address] [place] [address] Type: ADM IN Attending Dr: Vania Chacon [...] Oxygen 40 40 08/06/23 23:09 08/07/23 00:00 08/07/23 00:00 Temperature 99.0 F Pulse Rate 65 [...] Plan Documented By: Pravin Rivers DO 08/07/23 1351 Signed By: <Electronically signed by Pravin Rivers DO> 08/07/23 0752 [facility] Work Phone: [phone] Progress note Author Sanket Hammer [facility] August 07, 2023 12:44pm Note Date/Time August 07, 2023 12: 40pm [facility] EN[facility] [address] [place] [address] Nephrology Progress Note Signed Patient: Chelsea Diego JR MR#: [id number] : 1950 Acct:[id number] Age/Sex: 72 / M Adm Date: 4 Loc: Room: [address] [place] [address] Type: ADM IN Attending Dr: Vania Chacon [...] evidence of recovery. Patient was [facility]. Patient presented to [place] ER from his nursing facility with severe shortness of breath requiring intubation. Chest x-ray showed bilateral pulmonary infiltrate with possible pulmonary edema. Subsequently the patient was transferred to [facility] and he continues to be on [...] L Mechanical Ventilation 40 08/07/23 09:00 08/07/23 10:08/07/23 10:08/07/23 10:00 08/07/23 10:00 08/07/23 10:08/07/23 10:00 Narrative: [...] Ml Udc) 15 ml MUCOUS MEM BID [facility] Stop: 07/31/24 08:59 Last Admin: 08/07/23 09:46 Dose: 15 ml Cisatracurium Besylate (Cisatracurium Besylate 20 Mg/10 Ml Vial) 10 mg IV-PUSH ONCE ONE Stop: 08/07/23 12:35 Dextrose (Dextrose 50% In Water 25 Gm/50 Ml Syringe) 0 gm IV-PUSH PRN PRN PRN Reason: Hypoglycemia Stop: 07/31/24 08:04 Docusate Sodium (Docusate Liquid 100 Mg/10 Ml Udc) 100 mg PO BID [facility] Stop: 08/03/24 08:59 Last Admin: 08/07/23 09:46 [...] (Dextrose) 100 mls @ 4.84 mls/hr IV .[id number] [facility]; Protocol Stop: 08/04/24 10:14 Last Admin: 08/07/23 09:17 Dose: 1.5 mcg/kg/hr, 36.3 mls/hr Midazolam HCl (Versed) 100 mg in 100 mls @ 1 mls/hr IV .Q24H [facility]; Protocol Stop: 02/01/24 22:59 Last Admin: [...] Nathan Lemus M.D.08/06/2023 2:38 PM Dictation Location: [place] [address] Chest X-Ray 08/07/23 05:00 IMPRESSION: CONTINUED PARENCHYMAL CHANGES, POSSIBLY MINIMALLY IMPROVED ON THE RIGHT. Impression dictated by: Pallavi Hernandez M.D.08/07/2023 6:45 AM Dictation Location: [place] [address] Any impression(s) listed above is documentation that was entered by the reading physician into a diagnostic report(s) for Chelsea Diego JR. I have reviewed the report(s) [...] anti-GBM antibodies are negative. SUSANA positive for [employer]ER antibodies. Not sure about the clinical significant [...] signed by Sanket Hammer MD> 08/07/23 1244 [facility] Work Phone: [phone] Progress note Author Vania Chacon [facility] August 07, 2023 10:08am Note Date/Time August 07, 2023 10: 08am [facility] EN[facility] [address] [place] [address] Hospitalist Progress Note Signed Patient: Chelsea Diego JR MR#: [id number] : 1950 Acct:[id number] Age/Sex: 72 / M Adm Date: 4 Loc: Room: [address] [place] [address] Type: ADM IN Attending Dr: Vania Chacon [...] 09:17 Dextrose IV 08/04/24 10:14 1.5 mcg/kg/hr .[id number] KACI 36.3 mls/hr Administration Protocol 0.2 MCG/KG/HR [...] signed by Vania Chacon MD> 08/07/23 1008 [facility] Work Phone: [phone] Progress note Author Sanket Hammer [facility] August 07, 2023 9:25am Note Date/Time August 06, 2023 2:3 4pm [facility] EN[facility] [address] [place] [address] Nephrology Progress Note Signed Patient: Chelsea Diego JR MR#: [id number] : 1950 Acct:[id number] Age/Sex: 72 / M Adm Date: 4 Loc: Room: [address] [place] [address] Type: ADM IN Attending Dr: Vania Chacon [...] evidence of recovery. Patient was [facility] to [facility]. Patient presented to [place] ER from his nursing facility with severe shortness of breath requiring intubation. Chest x-ray showed bilateral pulmonary infiltrate with possible pulmonary edema. Subsequently the patient was transferred to [facility] and he continues to be on [...] 3789 / 3789 157 / 157 15 15 Balance -1239 / -1239 1543 / [...] Puff/18 Gm Inhaler) 6 puff VENT Q6HR [facility] Stop: 07/31/24 11:59 Last Admin: 08/06/23 12:02 Dose: 6 puff Chlorhexidine Gluconate (Chlorhexidine Gluconate 0.12% 15 Ml Udc) 15 ml MUCOUS MEM BID [facility] Stop: 07/31/24 08:59 Last Admin: 08/06/23 08:42 Dose: 15 ml Dextrose (Dextrose 50% In Water 25 Gm/50 Ml Syringe) 0 gm IV-PUSH PRN PRN PRN Reason: Hypoglycemia Stop: 07/31/24 08:04 Docusate Sodium (Docusate Liquid 100 Mg/10 Ml Udc) 100 mg PO BID [facility] Stop: 08/03/24 08:59 Last Admin: 08/06/23 08:42 [...] 5,000 Unit/Ml Vial) 5,000 unit SUBCUT Q8HR [facility] Stop: 08/01/24 13:59 Last Admin: 08/06/23 13:59 [...] 100 mls @ 2.5 mls/hr IV .Q24H [facility]; Protocol Last Admin: 08/06/23 06:29 Dose: Not Given Dexmedetomidine HCl 400 mcg/ (Dextrose) 100 mls @ 4.84 mls/hr IV .[id number] KACI; Protocol Stop: 08/04/24 10:14 Last Admin: 08/06/23 10:58 Dose: 1.5 mcg/kg/hr, 36.3 mls/hr Midazolam HCl (Versed) 100 mg in 100 mls @ 1 mls/hr IV .Q24H [facility]; Protocol Stop: 02/01/24 22:59 Last Titration: 08/05/23 23:30 Dose: 3 mg/hr, 3 mls/hr Insulin Aspart (Insulin Aspart 300 Units/3 Ml Insuln.Pen) 0 units SUBCUT Q6HR KACI; Protocol Stop: 07/31/24 11:59 Last Admin: 08/06/23 [...] Simmons Jr., D.O.08/06/2023 8:24 AM Dictation Location: [facility] Any impression(s) listed above is documentation that was entered by the reading physician into a diagnostic report(s) for Chelsea Diego JR. I have reviewed the report(s) [...] indicated. Documented By: Sanket Hammer MD 08/06/23 9422 Signed By: <Electronically signed by Sanket Hammer MD> 08/07/23 0544 [facility] Work Phone: [phone]) 343-723603-13-2024 Progress note Author Mehul Garrett [facility] August 06, 2023 8:14pm Note Date/Time August 06, 2023 8:3 7am [facility] EN[facility] [address] [place], [place] [address] Pulmonology Progress Note Signed Patient: Chelsea Diego JR MR#: [id number] : 1950 Acct:[id number] Age/Sex: 72 / M Adm Date: 4 Loc: Room: [address] [place] [address] Type: ADM IN Attending Dr: Vania Chacon [...] - Last 24 Hours: Intake & Output 03/12/24 03/13/24 03/13/24 23:59 07:59 15:59 Intake Total 720 / [...] HISTORY: Ventilator care COMPARISON: Chest 08/05/2023 FINDINGS: Whta-ly-enoqcwmw unchanged positions. Heart and mediastinal structures appear [...] <Electronically signed by MD Mehul Garrett> 08/06/232013 [facility] Work Phone: [phone]) 986-343803-13-2024 Consult note Author Pravin Rivers [facility] August 06, 2023 5:19pm Note Date/Time August 06, 2023 5:1 9pm [facility] EN[facility] [address] [place] [address] Neurology Consult Note Signed Patient: Chelsea Diego JR MR#: [id number] : 1950 Acct:[id number] Age/Sex: 72 / M Adm Date: 4 Loc: Room: [address] [place] [address] Type: ADM IN Attending Dr: Vania Chacon MD Copies to: DO Vania Russell MD Marc Naderer, MD~ HPI Consult Date: 08/06/23 Almond Paste Molder: Pravin Rivers DO [facility] Medical History (Updated 08/06/23 @ 17:09 [...] Pallavi Hernandez M.D.08/01/2023 7:14 AM Dictation Location: [place] [address] Venous Duplex 08/01/23 08:05 IMPRESSION: NO EVIDENCE FOR DEEP VEIN THROMBOSIS OR PROXIMAL SUPERFICIAL THROMBOPHLEBITIS INTHE RIGHT OR LEFT LOWER EXTREMITY. Impression dictated by: Dhruv Bautista M.D.08/02/2023 9:26 AM Dictation Location: [facility] Chest X-Ray 08/02/23 05:00 IMPRESSION: SLIGHT LIMITED STUDY. CONTINUED PARENCHYMAL CHANGES. Impression dictated by: Pallavi Hernandez M.D.08/02/2023 8:10 AM Dictation Location: [facility] Chest X-Ray 08/03/23 05:00 IMPRESSION: CONTINUED BILATERAL PARENCHYMAL CHANGES. Impression dictated by: Pallavi Hernandez M.D.08/03/2023 8:05 AM Dictation Location: [facility]02 Chest X-Ray 08/04/23 05:00 IMPRESSION: PERSISTENT BILATERAL PARENCHYMAL CHANGES Impression dictated by: Pallavi Hernandez M.D.08/04/2023 7:03 AM Dictation Location: [place] [address] Chest X-Ray 08/05/23 05:00 IMPRESSION: CONTINUED BILATERAL PARENCHYMAL CHANGES. Impression dictated by: Pallavi Hernandez M.D.08/05/2023 7:17 AM Dictation Location: [place] [address] Chest X-Ray 08/06/23 05:00 IMPRESSION: NO SIGNIFICANT CHANGE IN CHEST FINDINGS. Impression dictated by: Georgi Simmons Jr., D.O.08/06/2023 8:24 AM Dictation Location: [place] [address] 08/06/23 09:22 IMPRESSION: No acute intracranial pathology. Mucosal thickening is noted in the ethmoid air cells, sphenoid sinuses, and frontal sinuses right greater than left. There is a hyperattenuating focus on the right maxillary sinus. Present portion of a previously extracted tooth or sequelae of focal consolidation Impression dictated by: Nathan Lemus M.D.08/06/2023 2:38 PM Dictation Location: [place] [address] Assessment/Plan (1) Encephalopathy: Assessment/Problem Details: CONSULT REASON: Encephalopathy HPI: 72-year-old man with diabetes, end-stage renal disease, peripheral vascular disease. 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 At the [facility] he had been intubated for respiratory issues. [...] and tachycardic and just shakes his head lbor-xve-ddzzd ytqo-vcs-fxkdi. Does not seem to be following commands. EXAMINATION: Intubated and sedated. Breathes over the set ventilatory rate. Does not respond to voice. Does not follow commands. Turns head cpvh-kll-ihrfe repeatedly. Appears uncomfortable. Pupils small, equal, reactive. [...] <Electronically signed by Pravin Rivers DO> 08/06/231718 [facility] Work Phone: [phone] Progress note Author Vania Chacon [facility] August 06, 2023 10:00am Note Date/Time August 06, 2023 9:5 9am [facility] EN[facility] [address] [place] [address] Hospitalist Progress Note Signed Patient: Chelsea Diego JR MR#: [id number] : 1950 Acct:[id number] Age/Sex: 72 / M Adm Date: 4 Loc: Room: [address] [place] [address] Type: ADM IN Attending Dr: Vania Chacon [...] 07:43 Dextrose IV 08/04/24 10:14 1.5 mcg/kg/hr .[id number] KACI 36.3 mls/hr Administration Protocol 0.2 MCG/KG/HR [...] signed by Vania Chacon MD> 08/06/23 1000 [facility] Work Phone: [phone] Progress note Author Mehul Garrett [facility] August 05, 2023 2:24pm Note Date/Time August 05, 2023 8:2 [facility] [address] [place] [address] Pulmonology Progress Note Signed Patient: Chelsea Diego JR MR#: [id number] : 1950 Acct:[id number] Age/Sex: 72 / M Adm Date: 4 Loc: Room: [address] [place] [address] Type: ADM IN Attending Dr: Vania Chacon [...] 500 Output Total 3489 / 3789 37 / 37 Balance -2319 / -1239 463 / [...] Content 6.4 L ABG Base Excess 0.6 14/500/35/5 Assessment/Plan Assessment/Plan (1) Acute hypoxic respiratory [...] signed by MD Mehul Garrett> 08/05/23 1424 [facility] Work Phone: [phone] Progress note Author Sanket Hammer [facility] August 05, 2023 1:55pm Note Date/Time August 05, 2023 1:5 5pm [facility] EN[facility] [address] [place] [address] Nephrology Progress Note Signed Patient: Chelsea Diego JR MR#: [id number] : 1950 Acct:[id number] Age/Sex: 72 / M Adm Date: 4 Loc: Room: [address] [place] [address] Type: ADM IN Attending Dr: Vania Chacon [...] evidence of recovery. Patient was [facility] to [facility]. Patient presented to [place] ER from his nursing facility with severe shortness of breath requiring intubation. Chest x-ray showed bilateral pulmonary infiltrate with possible pulmonary edema. Subsequently the patient was transferred to [facility] and he continues to be on [...] 100 mls @ 2.5 mls/hr IV .Q24H [facility]; Protocol Last Titration: 08/05/23 13:24 Dose: 25 mcg/hr, 2.5 mls/hr Dexmedetomidine HCl 400 mcg/ (Dextrose) 100 mls @ 4.84 mls/hr IV .[id number] [facility]; Protocol Stop: 08/04/24 10:14 Last Admin: 08/05/23 13:45 Dose: 1.4 mcg/kg/hr, 33.88 mls/hr Insulin Aspart (Insulin Aspart 300 Units/3 Ml Insuln.Pen) 0 units SUBCUT Q6HR [facility]; Protocol Stop: 07/31/24 11:59 Last Admin: [...] 40 Mg Vial) 40 mg IV-PUSH DAILY [facility] Stop: 07/31/24 08:59 Last Admin: 08/05/23 08:52 Dose: 40 mg Sennosides (Sennosides Syrup 8.8 Mg/5 Ml Udc) 8.8 mg PO BID [facility] Stop: 08/03/24 08:59 Last Admin: 08/05/23 [...] Pallavi Hernandez M.D.08/05/2023 7:17 AM Dictation Location: [place] [address] Any impression(s) listed above is documentation that was entered by the reading physician into a diagnostic report(s) for Chelsea Diego JR. I have reviewed the report(s) [...] <Electronically signed by Sanket Hammer MD> 08/05/23 6914 [facility] Work Phone: [phone]) [phone] Progress note Author Vania Chacon [facility] August 05, 2023 11:03am Note Date/Time August 05, 2023 11: 03am [facility] ENTER [address] [place] [address] Hospitalist Progress Note Signed Patient: Chelsea Diego JR MR#: [id number] : 1950 Acct:[id number] Age/Sex: 72 / M Adm Date: 4 Loc: Room: [address] [place] [address] Type: ADM IN Attending Dr: Vania Chacon MD Copies to: ~ Date of Service: 08/05/2023 Subjective Subjective Narrative: Seen and examined On mechanical ventilation Sedated NO fever Exam Physical Exam Vital Signs: Temp Pulse Resp BP Pulse Ox O2 Del Method FiO2 98.3 F 93 18 166/79 H 98 Mechanical Ventilation 35 08/05/23 08:00 03/12/24 10:52 08/05/23 10:00 08/05/23 10:52 08/05/23 10:00 [...] 10:51 Dextrose IV 08/04/24 10:14 1.2 mcg/kg/hr .[id number] KACI 29.04 mls/hr Administration Protocol 0.2 MCG/KG/HR [...] By: <Electronically signed by Vania Chacon MD> 08/05/231102 [facility] Work Phone: 1(722) 279-313403-11-2024 Progress note Author Mehul Garrett [facility] August 04, 2023 1:09pm Note Date/Time August 04, 2023 8:4 5am [facility] EN[facility] [address] [place] [address] Pulmonology Progress Note Signed Patient: Chelsea Diego JR MR#: [id number] : 1950 Acct:[id number] Age/Sex: 72 / M Adm Date: 4 Loc: Room: [address] [place] [address] Type: ADM IN Attending Dr: Vania Chacon [...] <Electronically signed by MD Mehul Garrett> 08/04/23 1304 [facility] Work Phone: [phone]) [phone] Progress note Author Sanket Hammer [facility] August 04, 2023 12:09pm Note Date/Time August 04, 2023 12: 08pm [facility] ENTER [address] [place] [address] Nephrology Progress Note Signed Patient: Chelsea Diego JR MR#: [id number] : 1950 Acct:[id number] Age/Sex: 72 / M Adm Date: 4 Loc: Room: [address] [place] [address] Type: ADM IN Attending Dr: Vania Chacon [...] evidence of recovery. Patient was [facility]. Patient presented to [place] [facility] from his nursing facility with severe shortness of breath requiring intubation. Chest x-ray showed bilateral pulmonary infiltrate with possible pulmonary edema. Subsequently the patient was transferred to [facility] and he continues to be on [...] Puff/18 Gm Inhaler) 6 puff VENT Q6HR [facility] Stop: 07/31/24 11:59 Last Admin: 08/04/23 05:35 Dose: 6 puff Chlorhexidine Gluconate (Chlorhexidine Gluconate 0.12% 15 Ml Udc) 15 ml MUCOUS MEM [facility] Stop: 07/31/24 08:59 Last Admin: 08/04/23 08:46 Dose: 15 ml Dextrose (Dextrose 50% In Water 25 Gm/50 Ml Syringe) 0 gm IV-PUSH PRN PRN PRN Reason: Hypoglycemia Stop: 07/31/24 08:04 Docusate Sodium (Docusate Liquid 100 Mg/10 Ml Udc) 100 mg PO BID [facility] Stop: 08/03/24 08:59 Last Admin: 08/04/23 08:46 [...] 5,000 Unit/Ml Vial) 5,000 unit SUBCUT Q8HR [facility] Stop: 08/01/24 13:59 Last Admin: 08/04/23 06:22 Dose: 5,000 unit Propofol (Diprivan) 1,000 mg in 100 mls @ 12.492 mls/hr IV .Q8H1M [facility]; Protocol Stop: 07/31/24 08:14 Last Admin: 08/04/23 11:13 Dose: 50 mcg/kg/min, 31.23 mls/hr Sodium Chloride (0.9% Sodium Chloride 1,000 Ml) 1,000 mls @ 0 mls/hr MISCELLANE.Q0M PRN PRN Reason: Dialysis Stop: 07/31/24 10:31 Last Infusion: 08/01/23 15:59 Dose: Infused Meropenem (Merrem) 0.5 gm in 100 mls @ 33.3 mls/hr IV Q24H [facility] Stop: 08/07/23 17:01 Last Admin: 08/03/23 14:58 Dose: 33.3 mls/hr Sodium Chloride (0.9% Sodium Chloride 1,000 Ml) 1,000 mls @ 0 mls/hr MISCELLANE.Q0M PRN PRN Reason: Dialysis Stop: 08/01/24 09:40 Last Infusion: 08/02/23 23:01 Dose: Infused Fentanyl (Fentanyl 1,000 Mcg/100 Ml D5w) 1,000 mcg in 100 mls @ 2.5 mls/hr IV .Q24H [facility]; Protocol Last Titration: 08/04/23 10:19 Dose: 100 mcg/hr, 10 mls/hr Insulin Aspart (Insulin Aspart 300 Units/3 Ml Insuln.Pen) 0 units SUBCUT Q6HR [facility]; Protocol Stop: 07/31/24 11:59 Last Admin: 08/04/23 11:59 Dose: Not Given Magnesium Hydroxide (Magnesium Hydroxide Susp 30 Ml Udc) 30 ml PO DAILY PRN PRN Reason: Constipation Stop: 08/02/24 22:13 Pantoprazole Sodium (Pantoprazole 40 Mg Vial) 40 mg IV-PUSH DAILY [facility] Stop: 07/31/24 08:59 Last Admin: 08/04/23 08:46 Dose: 40 mg Propofol (Propofol - Infusion Bolus 1,000 Mg/100 Ml Vial) 0 mg IV PROTOCOL PRN PRN Reason: Bolus Documentation Stop: 07/31/24 08:11 Last Admin: 08/02/23 04:45 Dose: 20 mg Sennosides (Sennosides Syrup 8.8 Mg/5 Ml Udc) 8.8 mg PO BID [facility] Stop: 08/03/24 08:59 Last Admin: 08/04/23 08:46 [...] Pallavi Hernandez M.D.08/04/2023 7:03 AM Dictation Location: [place] [address] Any impression(s) listed above is documentation that was entered by the reading physician into a diagnostic report(s) for Chelsea Diego JR. I have reviewed the report(s) [...] <Electronically signed by Sanket Hammer MD> 08/04/23 1208 [facility] Work Phone: [phone] 418-644103-11-2024 Progress note Author Vania Chacon [facility] August 04, 2023 10:34am Note Date/Time August 04, 2023 10: 26am [facility] [address] [place] [address] Hospitalist Progress Note Signed Patient: Chelsea Diego JR MR#: [id number] : 1950 Acct:[id number] Age/Sex: 72 / M Adm Date: 4 Loc: Room: [address] [place] [address] Type: ADM IN Attending Dr: Vania Chacon [...] signed by Vania Chacon MD> 08/04/23 1034 [facility] Work Phone: 1([phone]) 356-988703-10-2024 Progress note Author Eulogio Ruvalcaba [facility] August 03, 2023 1:32pm Note Date/Time August 03, 2023 1:3 2pm [facility] [address] [place] [address] Hospitalist Progress Note Signed Patient: Chelsea Diego JR MR#: [id number] : 1950 Acct:[id number] Age/Sex: 72 / M Adm Date: 4 Loc: 4C Room: 5H1444-9 Type: ADM IN Attending Dr: Eulogio Ruvalcaba MD Copies to: ~ Date of Service: 08/03/2023 Subjective Subjective Narrative: Patient was seen at bedside. He remained intubated and sedated. Had a discussion with the beach patrol lieutenant at bedside. He did not do well with a spontaneous breathing trial. Patient had ultrafiltration yesterday. Tomorrow he may have some dialysis. Hisurine output is very low. Multiple consultants are on board. ON ADMISSION: This is a 72-year-old male who presented to the emergency room at the [facility] in the overnight or business process engineer hours. Reports right now are uncertain but [...] hemodialysis. He was finally discharged to a usp facility in the [place] area to continue hemodialysis and antibiotics and [...] for him. It seems that at the usp facility he was not making progress. They [...] ICU; vented and sedated Appreciate consult from syrup maker cook, beach patrol lieutenant Patient failed a spontaneous breathing trial. He needs to be on vent, as the sedation was withdrawal he was tachycardic and respiratory rate was high Patient will have hemodialysis possibly tomorrow. Appreciate consult from college or university faculty member. Prognosis guarded. Sputum culture. Bio fire nasal PCR test. Propofol for gentle sedation. Sliding scale level 2 for glycemic control. Check fingerstick blood glucoses every 6 hours, or more frequently if he becomeshypoglycemic. Check CBC, BMP, portable chest x-ray, ABG, and EKG daily while on the ventilator. Documented By: Eulogio Ruvalcaba MD 08/03/231329 Signed By: <Electronically signed by Eulogio Ruvalcaba MD> 08/03/232 [facility] Work Phone: 1(166) 137-158003-10-2024 Progress note Author Elder Vanrer [facility] August 03, 2023 1:12pm Note Date/Time August 03, 2023 1:1 2pm [facility] [address] [place] [address] Pulmonology Progress Note Signed Patient: Chelsea Diego JR MR#: [id number] : 1950 Acct:[id number] Age/Sex: 72 / M Adm Date: 4 Loc: Room: [address] [place] [address] Type: ADM IN Attending Dr: Eulogio Ruvalcaba [...] <Electronically signed by Elder Varner MD> 08/03/23 131 [facility] Work Phone: 1([phone]) [phone] Progress note Author Sury Winkler [facility] August 03, 2023 12:56pm Note Date/Time August 03, 2023 12: 52pm [facility] [address] [place] [address] Nephrology Progress Note Signed Patient: Chelsea Diego JR MR#: [id number] : 1950 Acct:[id number] Age/Sex: 72 / M Adm Date: 4 Loc: Room: 1I0787-1 Type: ADM IN Attending Dr: Eulogio Ruvalcaba [...] evidence of recovery. Patient was discharged to usp facility. Patient presented to [place] ER from his nursing facility with severe shortness of breath requiring intubation. Chest x-ray showed bilateral pulmonary infiltrate with possible pulmonary edema. Subsequently the patient was transferred to [facility] and he continues to be on [...] Ml Udc) 15 ml MUCOUS MEM [facility] Stop: 07/31/24 08:59 Last Admin: 08/03/23 [...] Mg/10 Ml Vial) 100 mg IV-PUSH BID [facility] Stop: 08/03/23 21:01 Glucose (Dextrose 40% [...] 5,000 Unit/Ml Vial) 5,000 unit SUBCUT Q8HR [facility] Stop: 08/01/24 13:59 Last Admin: 08/03/23 06:21 Dose: 5,000 unit Propofol (Diprivan) 1,000 mg in 100 mls @ 12.492 mls/hr IV .Q8H1M [facility]; Protocol Stop: 07/31/24 08:14 Last Admin: 08/03/23 07:54 Dose: 45 mcg/kg/min, 28.11 mls/hr Sodium Chloride (0.9% Sodium Chloride 1,000 Ml) 1,000 mls @ 0 mls/hr MISCELLANE.Q0M PRN PRN Reason: Dialysis Stop: 07/31/24 10:31 Last Infusion: 08/01/23 15:59 Dose: Infused Meropenem (Merrem) 0.5 gm in 100 mls @ 33.3 mls/hr IV Q24H [facility] Last Admin: 08/02/23 13:42 Dose: 33.3 mls/hr Sodium Chloride (0.9% Sodium Chloride 1,000 Ml) 1,000 mls @ 0 mls/hr MISCELLANE.Q0M PRN PRN Reason: Dialysis Stop: 08/01/24 09:40 Last Infusion: 08/02/23 23:01 Dose: Infused Insulin Aspart (Insulin Aspart 300 Units/3 Ml Insuln.Pen) 0 units SUBCUT Q6HR [facility]; Protocol Stop: 07/31/24 11:59 Last Admin: 08/03/23 [...] Pallavi Hernandez M.D.08/03/2023 8:05 AM Dictation Location: [place] [address] Any impression(s) listed above is documentation that was entered by the reading physician into a diagnostic report(s) for Chelsea Diego JR. I have reviewed the report(s) [...] was 1.1 mg/dL. Patient gets dialysis on [facility] schedule (2) Acute pulmonary edema: Assessment/Problem [...] as indicated. Documented By: Sury Winkler MD 08/03/23 1252 Signed By: <Electronically signed by MD Sury Winkler> 08/03/23 8958 [facility] Work Phone: [phone]) 514-826203-09-2024 Progress note Author Elder Varner [facility] August 02, 2023 2:23pm Note Date/Time August 02, 2023 2:23 pm [facility] [address] [place] [address] Pulmonology Progress Note Signed Patient: Chelsea Diego JR MR#: [id number] : 1950 Acct:[id number] Age/Sex: 72 / M Adm Date: 4 Loc: Room: [address] [place] [address] Type: ADM IN Attending Dr: Eulogio Ruvalcaba [...] signed by Elder Varner MD> 08/02/23 142 [facility] Work Phone: 1([phone] 590-187803-09-2024 Progress note Author Sury Winkler [facility] August 02, 2023 12:58pm Note Date/Time August 02, 2023 12:5 4pm [facility] [address] [place] [address] Nephrology Progress Note Signed Patient: Chelsea Diego JR MR#: [id number] : 1950 Acct:[id number] Age/Sex: 72 / M Adm Date: 4 Loc: Room: [address] [place] [address] Type: ADM IN Attending Dr: Eulogio Ruvalcaba [...] evidence of recovery. Patient was discharged to [facility]p facility. Patient presented to [place] ER from his nursing facility with severe shortness of breath requiring intubation. Chest x-ray showed bilateral pulmonary infiltrate with possible pulmonary edema. Subsequently the patient was transferred to [facility] and he continues to be on [...] 5,000 Unit/Ml Vial) 5,000 unit SUBCUT Q8HR [facility] Stop: 08/01/24 13:59 Propofol (Diprivan) 1,000 mg in 100 mls @ 12.492 mls/hr IV .Q8H1M [facility]; Protocol Stop: 07/31/24 08:14 Last Admin: 08/02/23 08:22 Dose: 45 mcg/kg/min, 28.11 mls/hr Sodium Chloride (0.9% Sodium Chloride 1,000 Ml) 1,000 mls @ 0 mls/hr MISCELLANE.Q0M PRN PRN Reason: Dialysis Stop: 07/31/24 10:31 Last Infusion: 08/01/23 15:59 Dose: Infused Meropenem (Merrem) 0.5 gm in 100 mls @ 33.3 mls/hr IV Q24H [facility] Last Admin: 08/01/23 17:57 Dose: 33.3 [...] Turbid A Urine pH 5.0 Ur Specific Mary[place] 1.027 Urine Protein 300 H Urine Glucose [...] Dhruv Bautista M.D.08/02/2023 9:26 AM Dictation Location: [place] [address] Chest X-Ray 08/02/23 05:00 IMPRESSION: SLIGHT LIMITED STUDY. CONTINUED PARENCHYMAL CHANGES. Impression dictated by: Pallavi Hernandez M.D.08/02/2023 8:10 AM Dictation Location: [place] [address] Any impression(s) listed above is documentation that was entered by the reading physician into a diagnostic report(s) for Chelsea Diego JR. I have reviewed the report(s) [...] was 1.1 mg/dL. Patient gets dialysis on [facility] schedule (2) Acute pulmonary edema: Assessment/Problem [...] as indicated. Documented By: Sury Winkler MD 08/02/23 1254 Signed By: <Electronically signed by MD Sury Winkler> 08/02/23 1258 [facility] Work Phone: [phone] Progress note Author Eulogio Ruvalcaba [facility] August 02, 2023 11:24am Note Date/Time August 02, 2023 11:2 4am [facility] [address] [place] [address] Hospitalist Progress Note Signed Patient: Chelsea Diego JR MR#: [id number] : 1950 Acct:[id number] Age/Sex: 72 / M Adm Date: 4 Loc: Room: [address] [place] [address] Type: ADM IN Attending Dr: Eulogio Ruvalcaba MD Copies to: ~ Date of Service: 08/02/2023 Subjective Subjective Narrative: Patient was seen at bedside. He is intubated and sedated. He will have his hemodialysis today. Then he may go for spontaneous breathing trial. Multiple consultants are on board. ON ADMISSION: This is a 72-year-old male who presented to the emergency room at the [facility] in the overnight or business process engineer hours. Reports right now are uncertain but [...] hemodialysis. He was finally discharged to a usp facility in the [facility] to continue hemodialysis and antibiotics and have [...] for him. It seems that at the usp facility he was not making progress. They [...] ICU; vented and sedated Appreciate consult from syrup maker cook, beach patrol lieutenant Patient will have hemodialysis this afternoon. Appreciate consult from college or university faculty member. Sputum culture. Bio fire nasal PCR test. Propofol for gentle sedation. Sliding scale level 2 for glycemic control. Check fingerstick blood glucoses every 6 hours, or more frequently if he becomeshypoglycemic. Check CBC, BMP, portable chest x-ray, ABG, and EKG daily while on the ventilator. Documented By: Eulogio Ruvalcaba MD 08/02/23 112 Signed By: <Electronically signed by Eulogio Ruvalcaba MD> 08/02/23 1124 [facility] Work Phone: [phone] Consult note Author Sury Winkler [facility] August 01, 2023 5:45pm Note Date/Time August 01, 2023 5:45 pm [facility] [address] [place], [place] [address] Nephrology Consult Note Signed Patient: Chelsea Diego JR MR#: [id number] : 1950 Acct:[id number] Age/Sex: 72 / M Adm Date: 4 Loc: Room: [address] [place] [address] Type: ADM IN Attending Dr: Geo Thomas DO Copies to: MD Geo Moulton DO Marc Naderer, MD~ Providers Consult Date: 08/01/23 Requesting Provider: Geo Thomas DO Primary Care Provider: Tejas Stevens MD HPI Reason for Consult: Management of SONYA and [...] evidence of recovery. Patient was discharged to usp facility. Patient presented to [place] ER from his nursing facility with severe shortness of breath requiring intubation. Chest x-ray showed bilateral pulmonary infiltrate with possible pulmonary edema. Subsequently the patient was transferred to [facility] and he continues to be on [...] BID [facility] Stop: 07/31/24 08:59 Last Admin: 08/01/23 09:03 [...] [facility]; Protocol Stop: 07/31/24 11:59 Last Admin: 08/01/23 11:33 Dose: 2 units Pantoprazole Sodium (Pantoprazole 40 Mg Vial) 40 mg IV-PUSH DAILY [facility] Stop: 07/31/24 08:59 Last Admin: 08/01/23 08:49 [...] Pallavi Hernandez M.D.08/01/2023 7:14 AM Dictation Location: [place] [address] Any impression(s) listed above is documentation that was entered by the reading physician into a diagnostic report(s) for Chelsea Diego JR. I have reviewed the report(s) [...] <Electronically signed by MD Sury Winkler> 08/01/23 8943 [facility] Work Phone: [phone] Consult note Author Mehul Garrett [facility] August 01, 2023 3:55pm Note Date/Time August 01, 2023 10:3 7am [facility] [address] [place] [address] Pulmonology Consult Note Signed Patient: Chelsea Diego JR MR#: [id number] : 1950 Acct:[id number] Age/Sex: 72 / M Adm Date: 4 Loc: Room: [address] [place] [address] Type: ADM IN Attending Dr: Geo Thomas DO Copies to: MD Geo Goldberg DO Marc Naderer, MD Rebecca Howard, MD, RES~ HPI Date/Time of Consultation: Date [...] on oxygen at baseline. Required intubation at [facility] before transfer. Found to be positive for [...] glucose sensor (FreeStyle Shawn 2 Sensor kit) 08/21/23 [History Confirmed 07/16/23] metoprolol succinate 50 mg [...] Service: 08/01/23 XR/XR chest 1V portable: intubation ([id number]) XR/XR abdomen 1V: OG PLACEMENT CLINICAL DATA: [...] <Electronically signed by MD Mehul Garrett> 08/01/23 5654 [facility] Work Phone: [phone] Consult note Author Chip Bravo [facility] August 01, 2023 10:47am Note Date/Time August 01, 2023 10:4 7am [facility] [address] [place] [address] Cardiology Consult Note Signed Patient: Chelsea Diego JR MR#: [id number] : 1950 Acct:[id number] Age/Sex: 72 / M Adm Date: 4 Loc: Room: [address] [place] [address] Type: ADM IN Attending Dr: Geo Thomas [...] had recently hada prolonged hospital stay here [facility] which was complicated by some manner of sepsis. Patient was recently discharged to a usp facility in [place]. Apparently the patient had been doing clinically well until Friday when he began to complain of increasing shortness of breath. By last evening the dyspnea was severe enough that it prompted his caregivers at the [facility] to send him to [place] emergency department for evaluation. In the [place] ER the patient was found to be [...] tablet 10 mg PO DAILY #30 tabs 02/28/24 [Rx Confirmed 08/01/23] furosemide 80 mg tablet [...] 100 20 MCG/KG/MIN 12.492 mls/hr IV .Q8H1M [facility] Rx#:[id number] Other: Total Intake (Blood Product) Cumulative Amt Leukocyte Reduced Rbc Unit 0 [id number] Weight 104.1 kg Patient Weight 08/01/23 23:59 [...] <Electronically signed by Chip Bravo MD> 08/01/23 8860 [facility] Work Phone: [phone]) 943-795903-08-2024 History and physical note Author Geo Thomas [facility] August 01, 2023 8:39am Note Date/Time August 01, 2023 8:27 am [facility] [address] [place] [address] Hospitalist H&P Signed Patient: Chelsea Diego JR MR#: [id number] : 1950 Acct:[id number] Age/Sex: 72 / M Adm Date: 4 Loc: Room: [address] [place] [address] Type: ADM IN Attending Dr: Geo Thomas DO Copies to: DO Tejas Claudio MD~ HPI DATE OF EXAMINATION: 08/01/23 CHIEF COMPLAINT: Acute dyspnea HISTORY OF PRESENT ILLNESS: This is a 72-year-old male who presented to the emergency room at the [facility] in the overnight or business process engineer hours. Reports right now are uncertain but [...] hemodialysis. He was finally discharged to a usp facility in the [facility] to continue hemodialysis and antibiotics and have [...] for him. It seems that at the usp facility he was not making progress. They [...] is intubated and sedated on the ventilator. [facility] Medical History (Updated 08/01/23 @ 08:21 [...] tablet 10 mg PO DAILY #30 tabs 02/28/24 [Rx Confirmed 08/01/23] furosemide 80 mg tablet [...] days): 10 Documented By: Geo Thomas DO 0812 Signed By: <Electronically signed by Geo Thomas DO> 08/01/23 0824 [facility] Work Phone: 1([phone] 175-935402-15-2024 History and physical note Author Arnaldo Thomas [facility] July 11, 2023 7:10am Note Date/Time July 10, 2023 9:02pm [facility] [address] [place] [address] Hospitalist H&P Signed Patient: Chelsea Diego JR MR#: [id number] : 1950 Acct:[id number] Age/Sex: 72 / M Adm Date: 4 Loc: Room: [address] [place] [address] Type: ADM IN Attending Dr: Arnaldo Thomas MD Copies to: MD Arnaldo Alicea MD Paula G Smith, ELECTRIC MOTOR REBUILDER~ HPI DATE OF EXAMINATION: 07/10/23 CHIEF COMPLAINT: foot wound HISTORY OF PRESENT ILLNESS: Mr. Diego is a 72-year-old male with a PMH of T2DM, PVD, PAD, HTN, HLD, angioplasty to LLE the presents to the emergency room tonight for complaints of increased pain, redness and swelling to left foot. Patient states last he went to see his roaster supervisor and they did small skin grafts to [...] Zofran. He [facility] be admitted to the [facility] telemetry floor under the care of the hospitalist team. Review of Systems Review of Systems Review of systems: A 10 point review of systems was obtained, negative unless noted in the HPI or below. [facility] Medical History (Updated 07/10/23 @ 22:09 by [...] % (Auto) 6.5 % (.) 07/10/23 19:09 [place] % (Auto) 8.4 % (.) 07/10/23 19:09 Eos % (Auto) 0.3 % (.) 07/10/23 19:09 Baso % (Auto) 0.1 % (.) 07/10/23 19:09 Nucleat RBC Rel Count 0.0 /100 WBC (0-0.5) 07/10/23 19:09 Neut # (Auto) 27.7 x10E3/uL (1.8-7.7) H 07/10/23 19:09 Lymph # (Auto) 2.1 x10E3/uL (1.00-4.8) 07/10/23 19:09 [place] # (Auto) 2.7 x10E3/uL (0.0-0.8) H 07/10/23 [...] signed by Arnaldo Thomas MD> 07/11/23 0710 [facility] Work Phone: 1(735) 154-214202-15-2024 History of Present illness Narrative* Rohan Han DPM - 07/10/2023 4:00 PM EST Patient: Chelsea Diego Jr : 1950 PCP: Tejas Stevens [...] History: Past Medical History: Diagnosis Date Alcoholism ([facility]) Arthritis Broken ankle, right Broken collarbone Broken neck ([facility]) Bunion Cataract Compression fracture of C-spine ([facility]) 2010 T10-T12 DDD (degenerative disc disease), cervical DDD (degenerative disc disease), lumbar Depression ([facility]) Diabetic ulcer of left midfoot associated with type 2 diabetes mellitus, limited to breakdown of skin ([facility]) DM (diabetes mellitus) ([facility]) Elevated PSA Foot ulcer ([facility]) GERD (gastroesophageal reflux disease) History of elevated prostate specific antigen (PSA) History of medical problems 2010 degenrative change mid/lower thoracic spine Hx of shoulder surgery 2003 Hypertension ([facility]) Lumbar spondylolysis Neuropathy in diabetes ([facility]) Ocular palsy of right eye Osteomyelitis of left foot, unspecified type ([facility]) Prostate cancer ([facility]) PSA elevation Pulmonary arterial hypertension ([facility]) Substance abuse ([facility]) Type 2 diabetes mellitus with diabetic polyneuropathy, with long-term current use of insulin ([facility]) Vitamin D deficiency Weak urinary stream [...] left foot and right foot Neuro: 5.07 Castaner Radha monofilament test diminished to digits and [...] ulcer, left, with necrosis of muscle (HCC) ([facility]/H[facility]) PLAN Discussed with patient present today of possible treatments including oral antibiotics howeverdid discuss with patient most likely be beneficial to report to ER for lab workup as well as possible CT scan or IV antibiotics. Patient may need to be admitted and will discuss with local hospital far as possible admission if warranted documented in this encounterSaint [facility]'s [facility] [id number] History of Present illness Narrative* Rohan Han DPM - 06/26/2023 4:10 PM EST Patient: Chelsea Diego Jr : 1950 PCP: Tejas Stevens [...] History: Past Medical History: Diagnosis Date Alcoholism ([facility]) Arthritis Broken ankle, right Broken collarbone Broken neck (CMS/HCC) Bunion Cataract Compression fracture of C-spine (CMS/HCC) 2010 T10-T12 DDD (degenerative disc disease), cervical DDD (degenerative disc disease), lumbar Depression (CMS/HCC) Diabetic ulcer of left midfoot associated with type 2 diabetes mellitus, limited to breakdown of skin ([facility]) DM (diabetes mellitus) ([facility]/HCC) Elevated PSA Foot ulcer ([facility]/HCC) GERD (gastroesophageal reflux disease) History of elevated prostate specific antigen (PSA) History of medical problems 2010 degenrative change mid/lower thoracic spine Hx of shoulder surgery 2003 Hypertension ([facility]) Lumbar spondylolysis Neuropathy in diabetes [facility] [facility]) Ocular palsy of right eye Osteomyelitis of left foot, unspecified type ([facility]) Prostate cancer ([facility]) PSA elevation Pulmonary arterial hypertension ([facility] Substance abuse ([facility]) Type 2 diabetes mellitus with diabetic polyneuropathy, with long-term current use of insulin ([facility]) Vitamin D deficiency Weak urinary stream [...] left foot and right foot Neuro: 5.07 Castaner Radha monofilament test diminished to digits and [...] 3. PVD (peripheral vascular disease) (CMS/HCC) 4. Onychomycosis 5. Toe pain, left 6. [...] risks, alternatives, benefits, post op complications and group home expectations were discussed including but not limited to: infection,bone infection,wound dehiscence hardware failure and irritation,wound dehiscence,delay union/mal union/non union of bone. RSDS,neuroma,duty limitations,DVT/PE, MT,nerve damage, scar, loss of sensation, swelling. Pt [...] Rohan Han DPM documented in this encounterSaint [facility]'s [facility] [id number] Evaluation note* Encounter Date Diagnosis Assessment Notes Treatment Notes Treatment Clinical Notes Jun, Type 2 diabetes mellitus with hyperglycemia (ICD-10 - E11.65) Managing type 2 diabetes material was published 1. Uncontrolled, Type 2 diabetes with A1C of 7.7%. 2. Blood glucose levels above target. According to [employer] cgm download 06/13/23-06/26/23; Avg glucose 153. >250-1%, [...] issues. 6. Prescriptions: BECKIE PAP-Basaglar/Humalog /Trulicity. Drug [place] [facility]-None. DME: Drug [place] [facility]-None. 7. Prescriptions will not be filled [...] high blood pressure material was published Jun, supervisor intermediates current use of insulin (ICD-10 - Z79.4) [...] - L97.529) keep f/u with Dr. Han [facility] Other 12-06-2023 Evaluation note* Encounter Date Diagnosis [...] No follow up needed unless things change. [facility] Other 11-16-2023 Evaluation note* Encounter Date Diagnosis [...] will continue to check markers of inflammation. [facility] Other 10-26-2023 Evaluation note* Encounter Date Diagnosis [...] hyperglycemia, or diabetes medication issues. 6. Prescriptions: [employer] PAP-Basaglar/Humalo g/Mamta. 2023 [employer] ANASTASIA completed and required documentation supplied. 7. [...] high blood pressure material was published Feb, supervisor intermediates current use of insulin (ICD-10 - Z79.4) [...] - L97.529) keep f/u with Dr. Han [facility] Other 10-16-2023 Miscellaneous Notes* Telephone Encounter - Corrine Terrell RN - 03/10/2023 9:44 AM EDT ----- Message from Christine Vargas PA-C sent at 03/07/2023 3:55 PM EDT ----- Regarding: Follow up on outpatient imaging This was a patient we saw as a telestroke consult at [facility]. He had abnormal brain MRI showing midline [...] call to spouse. Imaging is scheduled at [facility]. Will send clinicals to them so they can submit prior authorization. * Telephone Encounter - Corrine Terrell RN - 03/10/2023 9:44 AM EDT Jhonny, can you fax office note to [facility] please * Telephone Encounter - Oni Coleman CNA - 03/10/2023 9:44 AM EDT Faxed office note to [facility]. * Telephone Encounter - Corrine Terrell RN [...] Received and scanned in report into media associate. please advise. * Telephone Encounter - Ml Brenner PA-C - 03/10/2023 9:44 AM EDT Please have Dr. Cummins review MRI brain. Thinking this is meningioma and most appropriate for followup with neurosurgery Ml Brenner PA-C 04/03/233 * Telephone Encounter - Oni Coleman CNA - 03/10/2023 9:44 AM EDT Called and requested that imaging be sent over. * Telephone Encounter - Corrine Terrell RN - 03/10/2023 9:44 AM EDT Reviewed with Dr. Cummins. Patient needs to see neurosurgery. [facility] Note* Telephone Encounter - Corrine Terrell RN - 03/10/2023 9:44 AM EDT ----- Message from Christine Vargas PA-C sent at 03/07/2023 3:55 PM EDT ----- Regarding: Follow up on outpatient imaging This was a patient we saw as a telestroke consult at [facility]. He had abnormal brain MRI showing midline [...] We can call them with the results. [facility] Telephone encounter Note* Telephone Encounter - Dorina Pineda - 03/10/2023 9:44 AM EDT Patient's spouse, Rita wanted to inform clinical staff that the their still needs to approve the MRI brain with and without contrast. [facility] Telephone encounter Note* Telephone Encounter - Corrine Terrell RN - 03/10/2023 9:44 AM EDT Returned call to spouse. Imaging is scheduled at [facility]. Will send clinicals to them so they can submit prior authorization. [facility] Tele[facility] encounter Note* Telephone Encounter - Corrine Terrell RN - 03/10/2023 9:44 AM EDT Jhonny, can you fax office note to [facility] please [facility] Telephone encounter Note* Telephone Encounter - Oni Coleman CNA - 03/10/2023 9:44 AM EDT Faxed office note to [facility]. [facility] Telephone encounter Note* Telephone Encounter - Corrine Terrell RN - 03/10/2023 9:44 AM EDT Can you see when imaging is scheduled for with [facility] please [facility] Telephone encounter Note* Telephone Encounter - Oni [...] in regards to getting the imaging scheduled. [facility] Tele[facility] encounter Note* Telephone Encounter - Oni Coleman CNA - 03/10/2023 9:44 AM EDT Called and got the imaging pushed to us. [facility] Tele[facility] encounter Note* Telephone Encounter - Kelly Sullivan - 03/10/2023 9:44 AM EDT Received call today 03/27/23 4:23 from patient's , Rita (HIPAA/PHI contact), to get status update. I informed her of Oni's message below and she voiced understanding. She said nothing neededfurther at this time. [facility] Telephone encounter Note* Telephone Encounter - Corrine Terrell RN - 03/10/2023 9:44 AM EDT Nothing yet received. [facility]10-16-2023 Telephone encounter Note* Telephone Encounter - Oni Coleman CNA - 03/10/2023 9:44 AM EDT Called and requested that imaging be sent over. [facility]10-16-2023 Telephone encounter Note* Telephone Encounter - Oni Coleman CNA - 03/10/2023 9:44 AM EDT Received and scanned in report into media associate. please advise. [facility]10-16-2023 Telephone encounter Note* Telephone Encounter - Ml Brenner PA-C - 03/10/2023 9:44 AM EDT Please have Dr. Cummins review MRI brain. Thinking this is meningioma and most appropriate for followup with neurosurgery Ml Brenner PA-C 04/03/233 [facility] Work Phone: [phone] 800-910010-16-2023 Telephone encounter Note* Telephone Encounter - Oni Coleman CNA - 03/10/2023 9:44 AM EDT Called and requested that imaging be sent over. [facility]-16-2023 Telephone encounter Note* Telephone Encounter - Corrine Terrell RN - 03/10/2023 9:44 AM EDT Reviewed with Dr. Cummins. Patient needs to see neurosurgery. [facility]10-10-2023 Hospital Discharge instructionsAmbulatory Orders* Initiate Home Health [...] Fall precautions - [facility] Work Phone: [phone]) 772-922810-10-2023 Progress note Author Michael Ramírez [facility] March 04, 2023 10:01am Note Date/Time March 04, 2023 1 0:01am [facility] [address] [place] [address] Infect. Disease Progress Note Signed Patient: Chelsea Diego JR MR#: [id number] : 1950 Acct:[id number] Age/Sex: 72 / M Adm Date: 3 Loc: Room: [address] [place] [address] Type: ADM IN Attending Dr: Orestes Mejia [...] DAILY KACI Stop: 02/24/24 08:59 Last Admin: 03/04/23 09:34 [...] 60 Mg Capsule.Dr) 60 mg PO DAILY [facility] Stop: 02/23/24 17:14 Last Admin: 03/04/23 09:35 Dose: 60 mg Enoxaparin Sodium (Enoxaparin 40 Mg/0.4 Ml Syringe) 40 mg SUBCUT DAILY@10 [facility] Stop: 02/24/24 09:59 Last Admin: 02/26/23 09:49 Dose: Not Given Gabapentin (Gabapentin 800 Mg Tablet) 800 mg PO BID [facility] Stop: 02/27/24 20:59 Last Admin: 03/04/23 09:34 Dose: 800 mg Glucose (Dextrose 40% Gel 15 Gm Tube) 0 gm PO PRN PRN PRN Reason: Hypoglycemia Stop: 02/24/24 12:16 Cefepime HCl (Maxipime) 2 gm in 50 mls @ 100 mls/hr IV Q12H [facility] Last Infusion: 03/04/23 05:00 Dose: Infused Insulin Aspart (Insulin Aspart 300 Units/3 Ml Insuln.Pen) 0 units SUBCUT TID..[facility]; Protocol Stop: 02/24/24 16:59 Last Admin: 03/04/23 09:36 Dose: Not Given Insulin Glargine (Insulin Glargine 300 Units/3 Ml Insuln.Pen) 41 units SUBCUT BID [facility] Stop: 02/24/24 09:59 Last Admin: 03/04/23 09:36 Dose: 21 units Lidocaine HCl (Lidocaine 1% 50 Ml Vial) 0.1 ml INTRADERMA PREOP PRN PRN Reason: Venipuncture x 1 Dose Magnesium Oxide (Magnesium Oxide 400 Mg Tablet) 400 mg PO DAILY [facility] Stop: 02/27/24 09:14 Last Admin: 03/04/23 09:35 Dose: 400 mg Metoprolol Succinate (Metoprolol Succinate 50 Mg Tab.Er.24h) 50 mg PO DAILY [facility] Stop: 02/23/24 17:14 Last Admin: 03/04/23 09:34 Dose: 50 mg Metoprolol Tartrate (Metoprolol Tartrate 5 Mg/5 Ml Vial) 5 mg IV-PUSH Q4H PRN PRN Reason: Blood Pressure Stop: 02/25/24 13:56 Last Admin: 03/04/23 09:56 Dose: 5 mg Nifedipine (Nifedipine Er.24hr 30 Mg Tab.Er.24) 30 mg PO DAILY KACI Stop: 03/03/24 08:59 Last Admin: 03/04/23 09:56 [...] <Electronically signed by MD Michael Ramírez> 03/04/23 1001 [facility] Work Phone: [phone] 261-331910-09-2023 Progress note Author Orestes Mejia [facility] March 03, 2023 5:32pm Note Date/Time March 03, 2023 5: 32pm [facility] [address] [place] [address] Hospitalist Progress Note Signed Patient: Chelsea Diego JR MR#: [id number] : 1950 Acct:[id number] Age/Sex: 72 / M Adm Date: 3 Loc: 4 Room: [id number] Type: ADM IN Attending Dr: Orestes Mejia [...] <Electronically signed by Orestes Mejia DO> 03/03/231731 [facility] Work Phone: [phone] 235-435510-09-2023 Progress note Author Michael Ramírez [facility] March 03, 2023 9:11am Note Date/Time March 03, 2023 9: 09am [facility] [address] [place] [address] Infect. Disease Progress Note Signed Patient: Chelsea Diego JR MR#: [id number] : 1950 Acct:[id number] Age/Sex: 72 / M Adm Date: 3 Loc: 4N Room: [address] [place] [address] Type: ADM IN Attending Dr: Orestes Mejia DO Copies to: ~ Date of Service: 03/03/2023 Subjective Interval history: Patient is doing well and over the weekend states his diarrhea has improved. Wealiciall switch to cefepime based on Pseudomonas final [...] 50 mls @ 100 mls/hr IV Q12H [facility] Last Admin: 03/03/23 05:26 Dose: 100 mls/hr Insulin Aspart (Insulin Aspart 300 Units/3 Ml Insuln.Pen) 0 units SUBCUT TID.AC.[facility]; Protocol Stop: 02/24/24 16:59 Last Admin: 03/03/23 08:00 Dose: Not Given Insulin Glargine (Insulin Glargine 300 Units/3 Ml Insuln.Pen) 41 units SUBCUT BID [facility] Stop: 02/24/24 09:59 Last Admin: 03/02/23 21:39 Dose: 21 units Lidocaine HCl (Lidocaine 1% 50 Ml Vial) 0.1 ml INTRADERMA PREOP PRN PRN Reason: Venipuncture x 1 Dose Magnesium Oxide (Magnesium Oxide 400 Mg Tablet) 400 mg PO DAILY [facility] Stop: 02/27/24 09:14 Last Admin: 03/02/23 09:37 Dose: 400 mg Metoprolol Succinate (Metoprolol Succinate 50 Mg Tab.Er.24h) 50 mg PO DAILY [facility] Stop: 02/23/24 17:14 Last Admin: 03/02/23 [...] 250 Mg Capsule) 250 mg PO BID.WITH.MEALS [facility] Stop: 02/26/24 17:39 Last Admin: 03/02/23 [...] <Electronically signed by MD Michael Ramírez> 03/03/23910 [facility] Work Phone: [phone] 109-952210-08-2023 Progress note Author Eulogio Ruvalcaba [facility] March 02, 2023 6:37pm Note Date/Time March 02, 2023 6: 31pm [facility] [address] [place] [address] Hospitalist Progress Note Signed Patient: Chelsea Diego JR MR#: [id number] : 1950 Acct:[id number] Age/Sex: 72 / M Adm Date: 3 Loc: 4N Room: [address] [place] [address] Type: ADM IN Attending Dr: Eulogio Ruvalcaba [...] 02/23/23 17:15 03/02/23 09:37 Duloxetine 60 Mg Capsule.Dr PO 02/23/24 17:14 60 mg DAILY KACI Administration Enoxaparin Sodium 40 mg 02/24/23 10:00 02/26/23 09:49 Enoxaparin 40 Mg/0.4 Ml Syringe SUBCUT 02/24/24 09:59 Not Given DAILY@10 KACI Gabapentin 800 mg 02/27/23 21:00 03/02/23 09:37 Gabapentin 800 Mg Tablet PO 02/27/24 20:59 800 mg BID [facility] Administration Glucose 0 gm 02/24/23 12:17 Dextrose 40% Gel 15 Gm Tube PO 02/24/24 12:16 PRN PRN Hypoglycemia Cefepime HCl 2 gm in 50 mls @ 100 mls/hr 03/01/23 17:00 03/02/23 17:09 Maxipime IV 100 mls/hr Q12H K[facility]I Administration Insulin Aspart 0 units 02/24/23 17:00 03/02/23 17:20 Insulin Aspart 300 Units/3 Ml Insuln.Pen SUBCUT 02/24/24 16:59 Not Given TID.AC.[facility] Protocol Insulin Glargine 41 units 02/24/23 10:00 03/02/23 09:38 Insulin Glargine 300 Units/3 Ml Insuln.Pen SUBCUT 02/24/24 09:59 41 units BID KACI Administration Lidocaine HCl 0.1 ml 02/25/23 20:29 Lidocaine 1% 50 Ml Vial INTRADERMA PREOP PRN Venipuncture x 1 Dose Magnesium Oxide 400 mg 02/27/23 09:15 03/02/23 09:37 Magnesium Oxide 400 Mg Tablet PO 02/27/24 09:14 400 mg DAILY [facility] Administration Metoprolol Succinate 50 mg 02/23/23 17:15 [...] the Pseudomonas. Documented By: Eulogio Ruvalcaba MD 03/02/23 2358 Signed By: <Electronically signed by Eulogio Ruvalcaba MD> 03/02/23 1837 [facility] Work Phone: [phone] 146-747410-07-2023 Progress note Author Eulogio Ruvalcaba [facility] March 01, 2023 6:17pm Note Date/Time March 01, 2023 6: 13pm [facility] [address] [place] [address] Hospitalist Progress Note Signed Patient: Chelsea Diego JR MR#: [id number] : 1950 Acct:[id number] Age/Sex: 72 / M Adm Date: 3 Loc: 4N Room: [address] [place] [address] Type: ADM IN Attending Dr: Eulogio Ruvalcaba [...] Insuln.Pen SUBCUT 02/24/24 16:59 Not Given TID.AC.[facility] Protocol Insulin Glargine 41 units 02/24/23 [...] <Electronically signed by Eulogio Ruvalcaba MD> 03/01/231816 [facility] Work Phone: [phone] 204-481310-06-2023 Progress note Author Geo Thomas [facility] February 28, 2023 12:46pm Note Date/Time February 28, 2023 12 :46pm [facility] [address] [place] [address] Hospitalist Progress Note Signed Patient: Chelsea Diego JR MR#: [id number] : 1950 Acct:[id number] Age/Sex: 72 / M Adm Date: 3 Loc: N Room: [address] [place] [address] Type: ADM IN Attending Dr: Geo Thomas [...] signed by Geo Thomas DO> 02/28/23 1246 [facility] Work Phone: [phone] 590-472110-06-2023 Progress note Author Michael Ramírez [facility] February 28, 2023 11:51am Note Date/Time February 28, 2023 9: 04am [facility] [address] [place] [address] Infect. Disease Progress Note Signed Patient: Chelsea Diego JR MR#: [id number] : 1950 Acct:[id number] Age/Sex: 72 / M Adm Date: 3 Loc: 4N Room: [address] [place] [address] Type: ADM IN Attending Dr: Geo Thomas [...] 60 Mg Capsule.Dr) 60 mg PO DAILY [facility] Stop: 02/23/24 17:14 Last Admin: 02/28/23 08:05 Dose: 60 mg Enoxaparin Sodium (Enoxaparin 40 Mg/0.4 Ml Syringe) 40 mg SUBCUT DAILY@10 [facility] Stop: 02/24/24 09:59 Last Admin: 02/26/23 09:49 Dose: Not Given Gabapentin (Gabapentin 800 Mg Tablet) 800 mg PO BID [facility] Stop: 02/27/24 20:59 Last Admin: 02/28/23 [...] 300 Units/3 Ml Insuln.Pen) 0 units SUBCUT TID..[facility]; Protocol Stop: 02/24/24 16:59 Last Admin: 02/28/23 07:59 Dose: Not Given Insulin Glargine (Insulin Glargine 300 Units/3 Ml Insuln.Pen) 41 units SUBCUT BID [facility] Stop: 02/24/24 09:59 Last Admin: 02/28/23 08:05 Dose: 41 units Lidocaine HCl (Lidocaine 1% 50 Ml Vial) 0.1 ml INTRADERMA PREOP PRN PRN Reason: Venipuncture x 1 Dose Magnesium Oxide (Magnesium Oxide 400 Mg Tablet) 400 mg PO DAILY [facility] Stop: 02/27/24 09:14 Last Admin: 02/28/23 08:05 Dose: 400 mg Metoprolol Succinate (Metoprolol Succinate 50 Mg Tab.Er.24h) 50 mg PO DAILY [facility] Stop: 02/23/24 17:14 Last Admin: 02/28/23 [...] 090 0 Signed By: <Electronically signed by DO KELLE Hyman> 02/28/23 0948 <Electronically signed by MD Michael Ramírez> 02/28/23 1151 [facility] Work Phone: [phone] 114-138610-06-2023 Progress note Author Rohan Han [facility] February 28, 2023 8:08am Note Date/Time February 28, 2023 8: 08am [facility] [address] [place] [address] Podiatry Progress Note Signed Patient: Chelsea Diego JR MR#: [id number] : 1950 Acct:[id number] Age/Sex: 72 / M Adm Date: 3 Loc: 4N Room: [address] [place] [address] Type: ADM IN Attending Dr: Geo Thomas [...] have while in house and also may [facility] to continue while at home. Ordered KCI [...] <Electronically signed by TOY Han> 02/28/23 0808 [facility] Work Phone: [phone] Progress note Author Geo Thomas [facility] February 27, 2023 12:05pm Note Date/Time February 27, 2023 12 :05pm [facility] [address] [place] [address] Hospitalist Progress Note Signed Patient: Chelsea Diego JR MR#: [id number] : 1950 Acct:[id number] Age/Sex: 72 / M Adm Date: 3 Loc: 4N Room: [address] [place] [address] Type: ADM IN Attending Dr: Geo Thomas [...] 02/23/23 17:15 02/27/23 08:00 Duloxetine 60 Mg Capsule. PO 02/23/24 17:14 [...] <Electronically signed by Geo Thomas DO> 02/27/23 1205 [facility] Work Phone: [phone] 554-980910-05-2023 Progress note Author Michael Ramírez [facility] February 27, 2023 11:11am Note Date/Time February 27, 2023 8: 35am [facility] [address] [place] [address] Infect. Disease Progress Note Signed Patient: Chelsea Diego JR MR#: [id number] : 1950 Acct:[id number] Age/Sex: 72 / M Adm Date: 3 Loc: Room: [address] [place] [address] Type: ADM IN Attending Dr: Geo Thomas [...] 300 Units/3 Ml Insuln.Pen) 0 units SUBCUT TID.AC.[facility]; Protocol Stop: 02/24/24 16:59 Last Admin: 02/27/23 07:57 Dose: Not Given Insulin Glargine (Insulin Glargine 300 Units/3 Ml Insuln.Pen) 41 units SUBCUT BID [facility] Stop: 02/24/24 09:59 Last Admin: 02/27/23 08:00 Dose: 41 units Lidocaine HCl (Lidocaine 1% 50 Ml Vial) 0.1 ml INTRADERMA PREOP PRN PRN Reason: Venipuncture x 1 Dose Metoprolol Succinate (Metoprolol Succinate 50 Mg Tab.Er.24h) 50 mg PO DAILY [facility] Stop: 02/23/24 17:14 Last Admin: 02/27/23 08:00 Dose: 50 mg Metoprolol Tartrate (Metoprolol Tartrate 5 Mg/5 Ml Vial) 5 mg IV-PUSH Q4H PRN PRN Reason: Blood Pressure Stop: 02/25/24 13:56 Last Admin: 02/26/23 05:12 Dose: 5 mg Saccharomyces Boulardii (Saccharomyces Boulardii 250 Mg Capsule) 250 mg PO BID.WITH.MEALS [facility] Stop: 02/26/24 17:39 Last Admin: 02/27/23 [...] signed by MD Michael Ramírez> 02/27/23 1111 [facility] Work Phone: [phone] Progress note Author Rohan Han [facility] February 26, 2023 6:32pm Note Date/Time February 26, 2023 6: 33pm [facility] [address] [place] [address] Podiatry Progress Note Signed Patient: Chelsea Diego JR MR#: [id number] : 1950 Acct:[id number] Age/Sex: 72 / M Adm Date: 3 Loc: 4N Room: [address] [place] [address] Type: ADM IN Attending Dr: Geo Lindbloom DO Copies to: ~ Subjective Subjective Date [...] foot Documented By: Rohan Han DPM 02/26/23 182 Signed By: <Electronically signed by TOY Han> 02/26/23 183 [facility] Work Phone: 1([phone]) 874-941010-04-2023 Progress note Author Goe Thomas [facility] February 26, 2023 5:36pm Note Date/Time February 26, 2023 5: 28pm [facility] [address] [place] [address] Hospitalist Progress Note Signed Patient: Chelsea Diego JR MR#: [id number] : 1950 Acct:[id number] Age/Sex: 72 / M Adm Date: 3 Loc: 4N Room: [id number] Type: ADM IN Attending Dr: Geo Thomas [...] 1,000 Ml IV 02/23/24 17:14 Not Given .[id number] KACI Piperacillin Sod/Tazobactam Sod 3.375 gm in [...] <Electronically signed by Geo Thomas DO> 02/26/23 1736 [facility] Work Phone: [phone] Progress note Author Michael Ramírez [facility] February 26, 2023 8:46am Note Date/Time February 26, 2023 8: 46am [facility] [address] [place] [address] Infect. Disease Progress Note Signed Patient: Chelsea Diego JR MR#: [id number] : 1950 Acct:[id number] Age/Sex: 72 / M Adm Date: 3 Loc: 4N Room: [address] [place] [address] Type: ADM IN Attending Dr: Geo Thomas [...] 40 Mg Tablet) 40 mg PO DAILY [facility] Stop: 02/23/24 17:14 Last Admin: 02/25/23 08:29 Dose: 40 mg Baclofen (Baclofen 20 Mg Tablet) 20 mg PO DAILY [facility] Stop: 02/23/24 17:14 Last Admin: 02/25/23 08:29 Dose: 20 mg Celecoxib (Celecoxib 200 Mg Capsule) 200 mg PO DAILY [facility] Stop: 02/24/24 08:59 Last Admin: 02/25/23 08:29 Dose: 200 mg Clopidogrel Bisulfate (Clopidogrel Bisulfate 75 Mg Tablet) 75 mg PO DAILY [facility] Stop: 02/23/24 17:14 Last Admin: 02/25/23 08:29 Dose: 75 mg Dextrose (Dextrose 50% In Water 25 Gm/50 Ml Syringe) 0 gm IV-PUSH PRN PRN PRN Reason: Hypoglycemia Stop: 02/24/24 12:16 Duloxetine HCl (Duloxetine 60 Mg Capsule.Dr) 60 mg PO DAILY [facility] Stop: 02/23/24 17:14 Last Admin: 02/25/23 08:29 Dose: 60 mg Enoxaparin Sodium (Enoxaparin 40 Mg/0.4 Ml Syringe) 40 mg SUBCUT DAILY@10 [facility] Stop: 02/24/24 09:59 Last Admin: 02/25/23 11:26 Dose: 40 mg Gabapentin (Gabapentin 800 Mg Tablet) 800 mg PO TID [facility] Stop: 02/23/24 21:59 Last Admin: 02/25/23 21:52 Dose: 800 mg Glucose (Dextrose 40% Gel 15 Gm Tube) 0 gm PO PRN PRN PRN Reason: Hypoglycemia Stop: 02/24/24 12:16 Hydralazine HCl (Hydralazine 20 Mg/Ml Vial) 10 mg IV-PUSH Q4H PRN PRN Reason: Hypertension Stop: 02/25/24 13:56 Last Admin: 02/26/23 03:37 Dose: 10 mg Hydrochlorothiazide (Hydrochlorothiazide 25 Mg Tablet) 25 mg PO DAILY [facility] Stop: 02/26/24 08:59 Sodium Chloride (0.9% Sodium Chloride 1,000 Ml) 1,000 mls @ 75 mls/hr IV .[id number] [facility] Stop: 02/23/24 17:14 Last Admin: 02/25/23 21:53 Dose: Not Given Piperacillin Sod/Tazobactam Sod (Zosyn) 3.375 gm in 100 mls @ 200 mls/hr IV Q6HSCH Last Admin: 02/26/23 02:43 Dose: 200 mls/hr Vancomycin HCl 1.25 gm/ (Dextrose) 275 mls @ 183.333 mls/hr IV Q12H [facility] Stop: 02/24/24 00:59 Last Admin: 02/26/23 00:41 Dose: 183.33 mls/hr Lactated Ringer's (Lactated Ringers) 1,000 mls @ 20 mls/hr IV .Q24H ONE Stop: 02/26/23 20:28 Last Admin: 02/25/23 20:39 Dose: Not Given Insulin Aspart (Insulin Aspart 300 Units/3 Ml Insuln.Pen) 0 units SUBCUT TID.[facility]; Protocol Stop: 02/24/24 16:59 Last Admin: 02/25/23 21:52 Dose: 1 units Insulin Glargine (Insulin Glargine 300 Units/3 Ml Insuln.Pen) 41 units SUBCUT BID [facility] Stop: 02/24/24 09:59 Last Admin: 02/25/23 21:52 Dose: 41 units Lidocaine HCl (Lidocaine 1% 50 Ml Vial) 0.1 ml INTRADERMA PREOP PRN PRN Reason: Venipuncture x 1 Dose Metoprolol Succinate (Metoprolol Succinate 50 Mg Tab.Er.24h) 50 mg PO DAILY [facility] Stop: 02/23/24 17:14 Last Admin: 02/25/23 [...] through surgery Documented By: Michael Ramírez MD 02/26/23 0843 Signed By: <Electronically signed by MD Michael Ramírez> 02/26/23 0846 [facility] Work Phone: 1(715) 366-776510-03-2023 Progress note Author Geo Thomas [facility] February 25, 2023 2:21pm Note Date/Time February 25, 2023 1: 04pm [facility] [address] [place] [address] Hospitalist Progress Note Signed Patient: Chelsea Diego JR MR#: [id number] : 1950 Acct:[id number] Age/Sex: 72 / M Adm Date: 3 Loc: 4N Room: [address] [place] [address] Type: ADM IN Attending Dr: Geo Thomas [...] 1,000 Ml IV 02/23/24 17:14 75 mls/hr .[id number] KACI Administration Piperacillin Sod/Tazobactam Sod 3.375 gm [...] Insuln.Pen SUBCUT 02/24/24 16:59 Not Given TID.AC.HS KACI Protocol Insulin Glargine 41 units [...] signed by Geo Thomas DO> 02/25/23 1421 [facility] Work Phone: 1(803) 531-928610-03-2023 Progress note Author Michael Ramírez [facility] February 25, 2023 10:41am Note Date/Time February 25, 2023 9: 08am [facility] EN[facility] [address] [place] [address] Infect. Disease Progress Note Signed Patient: Chelsea Diego JR MR#: [id number] : 1950 Acct:[id number] Age/Sex: 72 / M Adm Date: 3 Loc: 4N Room: 3D7595-2 Type: ADM IN Attending Dr: Geo Thomas [...] Ml) 1,000 mls @ 75 mls/hr IV .[id number] [facility] Stop: 02/23/24 17:14 Last Admin: 02/25/23 01:43 Dose: 75 mls/hr Piperacillin Sod/Tazobactam Sod (Zosyn) 3.375 gm in 100 mls @ 200 mls/hr IV [id number] Last Admin: 02/25/23 08:29 Dose: 200 mls/hr Vancomycin HCl 1.25 gm/ (Dextrose) 275 mls @ 183.333 mls/hr IV Q12H [facility] Stop: 02/24/24 00:59 Last Admin: 02/25/23 01:43 Dose: 183.33 mls/hr Insulin Aspart (Insulin Aspart 300 Units/3 Ml Insuln.Pen) 0 units SUBCUT TID.AC.[facility]; Protocol Stop: 02/24/24 16:59 Last Admin: 02/25/23 08:33 Dose: Not Given Insulin Glargine (Insulin Glargine 300 Units/3 Ml Insuln.Pen) 41 units SUBCUT BID [facility] Stop: 02/24/24 09:59 Last Admin: 02/24/23 20:55 Dose: 41 units Metoprolol Succinate (Metoprolol Succinate 50 Mg Tab.Er.24h) 50 mg PO DAILY [facility] Stop: 02/23/24 17:14 Last Admin: 02/25/23 [...] MD Michael Ramírez> 02/25/23 1041 [facility] Work Phone: 1(729) 708-648210-02-2023 Consult note Author Dhruv Bautista [facility] February 24, 2023 4:15pm Note Date/Time February 24, 2023 8: 50am [facility] [address] [place] [address] Vascular Surgery Consult Note Signed Patient: Chelsea Diego JR MR#: [id number] : 1950 Acct:[id number] Age/Sex: 72 / M Adm Date: 3 Loc: 4N Room: [address] [place] [address] Type: ADM IN Attending Dr: Brennan Cerrato [...] negative unless noted below or in HPI [facility] Medical History Singh's palsy Cataract Diabetes [...] % (Auto) 69.6 Lymph % (Auto) 18.7 [place] % (Auto) 10.0 Eos % (Auto) 1.1 Baso % (Auto) 0.6 Nucleat RBC Rel Count 0.1 Neut # (Auto) 9.0 H Lymph # (Auto) 2.4 [place] # (Auto) 1.3 H Eos # (Auto) [...] 8.2 Neut % (Auto) Lymph % (Auto) [place] % (Auto) Eos % (Auto) Baso % (Auto) Nucleat RBC Rel Count Neut # (Auto) Lymph # (Auto) [place] # (Auto) Eos # (Auto) Baso # [...] <Electronically signed by MD Dhruv Bautista> 02/24/23 1619 [facility] Work Phone: 1(866) 710-353610-02-2023 Consult note Author Rohan Han [facility] February 24, 2023 3:50pm Note Date/Time February 24, 2023 3: 45pm [facility] EN[facility] [address] [place] [address] Podiatry Consult Note Signed Patient: Chelsea Diego JR MR#: [id number] : 1950 Acct:[id number] Age/Sex: 72 / M Adm Date: 3 Loc: 4N Room: 5N3953-1 Type: ADM IN Attending Dr: Brennan Cerrato [...] but denies any current aches and pains [facility] Medical History Singh's palsy Cataract Diabetes [...] follow Documented By: Rohan Han DPM 02/24/23 3029 Signed By: <Electronically signed by TOY Han> 02/24/23 9645 [facility] Work Phone: 1(773) 705-661210-02-2023 Progress note Author Brennan Cerrato [facility] February 24, 2023 12:34pm Note Date/Time February 24, 2023 12 :34pm [facility] EN[facility] [address] [place] [address] Hospitalist Progress Note Signed Patient: Chelsea Diego JR MR#: [id number] : 1950 Acct:[id number] Age/Sex: 72 / M Adm Date: 3 Loc: 4N Room: [address] [place] [address] Type: ADM IN Attending Dr: Brennan Cerrato [...] 1,000 Ml IV 02/23/24 17:14 75 mls/hr .[id number] KACI Administration Piperacillin Sod/Tazobactam Sod 3.375 gm [...] <Electronically signed by Brennan Cerrato MD> 02/24/23 1234 [facility] Work Phone: 1([phone]) 296-717710-02-2023 History and physical note Author Brennan Cerrato [facility] February 24, 2023 11:20am Note Date/Time February 23, 2023 4: 59pm [facility] [address] [place] [address] Hospitalist H&P Signed Patient: Chelsea Diego MR#: [id number] : 1950 Acct:[id number] Age/Sex: 72 / M Adm Date: 3 Loc: 4N Room: [address] [place] [address] Type: ADM IN Attending Dr: Brennan Cerrato [...] negative unless noted below or in HPI [facility] Medical History Singh's palsy Cataract Diabetes [...] % (Auto) 18.7 % (.) 02/23/23 12:05 [place] % (Auto) 10.0 % (.) 02/23/23 12:05 Eos % (Auto) 1.1 % (.) 02/23/23 12:05 Baso % (Auto) 0.6 % (.) 02/23/23 12:05 Nucleat RBC Rel Count 0.1 /100 WBC (0-0.5) 02/23/23 12:05 Neut # (Auto) 9.0 x10E3/uL (1.8-7.7) H 02/23/23 12:05 Lymph # (Auto) 2.4 x10E3/uL (1.00-4.8) 02/23/23 12:05 [place] # (Auto) 1.3 x10E3/uL (0.0-0.8) H 02/23/23 [...] 3 Documented By: Brennan Cerrato MD 02/23/23 4891 Signed By: <Electronically signed by Brennan Cerrato MD> 02/24/23 1120 [facility] Work Phone: 1(876) 725-905610-02-2023 Consult note Author Michael Ramírez [facility] February 24, 2023 10:47am Note Date/Time February 24, 2023 8: 47am [facility] [address] [place] [address] Infect. 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 on (02/20/2023) and he [...] and no additional complaints, except as documented [facility] Medical History Singh's palsy Cataract Diabetes [...] Mg/0.4 Ml Syringe) 40 mg SUBCUT DAILY@10 [facility] Stop: 02/24/24 09:59 Gabapentin (Gabapentin 800 Mg Tablet) 800 mg PO TID KACI Stop: 02/23/24 21:59 Last Admin: 02/23/23 21:11 Dose: 800 mg Sodium Chloride (0.9% Sodium Chloride 1,000 Ml) 1,000 mls @ 75 mls/hr IV .[id number] KACI Stop: 02/23/24 17:14 Last Admin: 02/23/23 [...] Units/3 Ml Insuln.Pen) 40 units SUBCUT 2XD [facility] Stop: 02/23/24 20:29 Metoprolol Succinate (Metoprolol [...] plan of care. Documented By: Gabino Hyman DO, RES 02/24/23 084 5 Signed By: <Electronically signed by DO KELLE Hyman> 02/24/23 0955 <Electronically signed by MD Michael Ramírez> 02/24/23 1045 [facility] Work Phone: 1([phone]) [phone] Evaluation note* Encounter Date Diagnosis Assessment Notes Treatment Notes Treatment Clinical Notes Jan, PAD (peripheral artery disease) (ICD-10 - I73.9) Jan, Ulcer of left foot, unspecified ulcer stage (ICD-10 - L97.529) Jan, Other Patient did get good hoahaoism of flow to the left foot with [...] in a few weeks for wound check [facility] Other 08-18-2023 Evaluation note* Encounter Date Diagnosis [...] on the schedule in the near future. [facility] Other 03-01-2023 Evaluation note* Encounter Date Diagnosis Assessment Notes Treatment Notes Treatment Clinical Notes Jul, Type 2 diabetes mellitus with hyperglycemia (ICD-10 - E11.65) Managing type 2 diabetes material was published 1. Uncontrolled, Type 2 diabetes with A1C of 9.0% GMI 7.6% today. 2. Blood glucose levels improved. According to [facility] cgm download 07/11/2022-07/24/2022: Avg glucose 180. >250-11%, [...] diabetes medication issues. 6. Prescriptions: Pap from [facility] [employer] for basaglar/humalog/tr ulicity. 7. Prescriptions will not [...] f/u with pcp for further recommendation Jul, senior living current use of insulin (ICD-10 - Z79.4) [...] last visit, continue with weight loss efforts [facility] Other 09-14-2022 Evaluation note* Encounter Date Diagnosis Assessment Notes Treatment Notes Treatment Clinical Notes Jan, Type 2 diabetes mellitus with hyperglycemia (ICD-10 - E11.65) Managing type 2 diabetes material was published 1. Uncontrolled, Type 2 diabetes with A1C of 8.5% 2. Blood glucose levels improved from last vist a1c 11% 08/23/21. According to [employer] cgm download 01/24/2022-02/06/2022: Avg glucose 200. >250-15%, >180-50%, 70-180-35%, <70-0%, <54-0%. CV 22.6%. Reviewed download with pt, glucose improved, remain above target. Discussed with pt increasing trulicity dose from 1.5 to 3mg once weekly. Pt agreeable. Will send rx request to [facility] pap. Reviewed with pt how to tirate [...] diabetes medication issues. 6. Prescriptions: Pap from [facility] for basaglar/humalog/tr ulicity- increase trulicity to 3mg once weekly. Jan, Dietary counseling and surveillance (ICD-10 - Z71.3) Heart healthy diet material was published Jan, HTN (hypertension) (ICD-10 - I10) Managing high blood pressure material was published uncontrolled- f/u with pcp for further recommendation Jan, senior living current use of insulin (ICD-10 - Z79.4) [...] last visit, continue with weight loss efforts [facility] Other 07-12-2022 Evaluation note* Encounter Date Diagnosis Assessment Notes Treatment Notes Treatment Clinical Notes Nov, Type 2 diabetes mellitus with hyperglycemia (ICD-10 - E11.65) [facility] Other 03-31-2022 Evaluation note* Encounter Date Diagnosis Assessment Notes Treatment Notes Treatment Clinical Notes Jul, Type 2 diabetes mellitus with hyperglycemia (ICD-10 - E11.65) Managing type 2 diabetes material was published 1. Uncontrolled, Type 2 diabetes with A1C of 11% 2. Blood glucose levels according to [employer] cgm download 08/10/2021-08/23/2021 : Avg glucose 231. [...] pap for 1.5mg dose. 7. Referral to school vocational educator 1 month Jul, Dietary counseling and surveillance (ICD-10 - Z71.3) Heart healthy diet material was published Jul, HTN (hypertension) (ICD-10 - I10) Managing high blood pressure material was published Jul, senior living current use of insulin (ICD-10 - Z79.4) Jul, Hypoglycemia associated with type 2 diabetes mellitus (ICD-10 - E11.649) Diabetes and foot care material was published see above Jul, Mixed hyperlipidemia (ICD-10 - E78.2) Cholesterol-low ering diet material was published 07/2020 ldl 118, trig. 768 on statin Jul, BMI 36.0-36.9,adult (ICD-10 - Z68.36) Setting weight-loss goals material was published see above [facility] Other 11-09-2021 Evaluation note* Encounter Date Diagnosis [...] high blood pressure material was published Mar, senior living current use of insulin (ICD-10 - Z79.4) 09 Nov, 2021 Hypoglycemia associated with type 2 diabetes mellitus (ICD-10 - E11.649) Diabetes and foot care material was published see above Mar, Mixed hyperlipidemia (ICD-10 - E78.2) Cholesterol-low ering diet material was published 07/2020 ldl 118, trig. 768 on statin Mar, BMI 31.0-31.9,adult (ICD-10 - Z68.31) Setting weight-loss goals material was published see above [facility] Other 09-30-2021 Evaluation note* Encounter Date Diagnosis [...] He was given rx assist application through [facility] will send order for basaglar to take [...] high blood pressure material was published Jan, supervisor intermediates current use of insulin (ICD-10 - Z79.4) [...] Z68.30) Setting weight-loss goals material was published [facility] Other 09-01-2013 History general Narrative - Reported* Type Description Date Medical History PROSTATE CANCER Medical History DM2 Medical History GERD Medical History HTN Medical History NEUROPATHY Surgical History prostate surgery for cancer 01/25 Surgical History cholecystectomy 2010 Surgical History hernia repair 2009 Surgical History circumcision 11/2019 Hospitalization History SEE ABOVE SURGERY [facility] Other Consult note Author Giovanni Ni [facility] July 11, 2023 9:05am Note Date/Time July 11, 2023 9:05am [facility] EN[facility] [address] [place] [address] Vascular Surgery Consult Note Signed Patient: Chelsea Diego JR MR#: [id number] : 1950 Acct:[id number] Age/Sex: 72 / M Adm Date: 4 Loc: Room: [address] [place] [address] Type: ADM IN Attending Dr: Brennan Cerrato [...] date: 07/11/2023 Requesting Physician: Brennan Cerrato MD [facility] Medical History Diabetes mellitus due to [...] % (Auto) 84.7 Lymph % (Auto) 6.5 [place] % (Auto) 8.4 Eos % (Auto) 0.3 Baso % (Auto) 0.1 Nucleat RBC Rel Count 0.0 Neut # (Auto) 27.7 H Lymph # (Auto) 2.1 [place] # (Auto) 2.7 H Eos # (Auto) [...] % (Auto) N/A Lymph % (Auto) N/A [place] % (Auto) N/A Eos % (Auto) N/A Baso % (Auto) N/A Nucleat RBC Rel Count N/A Neut # (Auto) N/A Lymph # (Auto) N/A [place] # (Auto) N/A Eos # (Auto) N/A [...] By: <Electronically signed by Giovanni Ni MD> 07/11/23904 [facility] Work Phone: Consult note Author Giovanni Ni [facility] July 11, 2023 9:06am Note Date/Time July 11, 2023 9:07am [facility] EN[facility] [address] [place] [address] Vascular Surgery Consult Note Signed Patient: Chelsea Diego JR MR#: [id number] : 1950 Acct:[id number] Age/Sex: 72 / M Adm Date: 4 Loc: Room: [address] [place] [address] Type: ADM IN Attending Dr: Brennan Cerrato MD Copies to: MD Tejas Cruz MD Matthew T Langenberg, MD~ HPI Consult HPI History of present illness: Mr. Diego is a 72 year old male cc:: CC: Brennan Cerrato MD Data of Consult Consult date: 07/11/2023 Requesting Physician: Brennna Cerrato MD [facility] Medical History Diabetes mellitus due to [...] % (Auto) 84.7 Lymph % (Auto) 6.5 [place] % (Auto) 8.4 Eos % (Auto) 0.3 Baso % (Auto) 0.1 Nucleat RBC Rel Count 0.0 Neut # (Auto) 27.7 H Lymph # (Auto) 2.1 [place] # (Auto) 2.7 H Eos # (Auto) [...] % (Auto) N/A Lymph % (Auto) N/A [place] % (Auto) N/A Eos % (Auto) N/A Baso % (Auto) N/A Nucleat RBC Rel Count N/A Neut # (Auto) N/A Lymph # (Auto) N/A [place] # (Auto) N/A Eos # (Auto) N/A [...] by Giovanni Ni MD> 07/11/23905 [facility] Work Phone: Discharge summary Author Arnaldo Thomas [facility] August 23, 2023 3:39pm Note Date/Time August 23, 2023 3:1 0pm [facility] [address] [place] [address] Discharge Summary Signed Patient: Chelsea Diego JR MR#: [id number] : 1950 Acct:[id number] Age/Sex: 72 / M Adm Date: 4 Loc: Room: [address] [place] [address]: Arnaldo Thomas MD Copies to: [...] 08:07 Consult to Pulmonology Routine Comment: 4t UC consulted pulmonology for consult Consulting Provider: MELVI Maria Pulmon, CC & Sleep Med Reason For Exam: Critical Care Management Has Provider Been Notified: Yes Date of Notification: 08/01/23 Time of Notification: 08:18 08/01/23 08:28 Consult to Dietitian Routine Comment: Reason for Consult: Tube Feeding Recs 08/01/23 08:29 Consult to Cardiology Routine Comment: Elizabetht JUMA text paged cardiology for consult Consulting Provider: [...] Otolaryngology(Head and Neck) Routine Comment: called office [phone] Consulting Provider: Darryl Britt Reason For Exam: consideration of tracheostomy Has Provider Been Notified: Yes Date of Notification: 08/11/23 Time of Notification: 16:27 08/12/23 09:56 Consult to Podiatry Routine Comment: Dr. Tori Juan design consultant Consulting Provider: Rohan Han Reason For Exam: re-check amputation site. Has Provider Been Notified: Yes Date of Notification: 08/12/23 Time of Notification: 12:38 Extended Comment: Called [phone] office,they are going to call back if [...] was brought to the emergency room at [facility] for shortness of breath. 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 Acute Care Activity: No Activity Restriction Diet: NPO and Other Additional Instructions: [facility] to manage care: - Full code [...] <Electronically signed by Arnaldo Thomas MD> 08/23/23 1539 [facility] Work Phone: Evaluation noteNo InformationNort reBounces Other Evalukkaer noteNo assessment information available [facility] Work Phone: Evaluation note* Diagnosis Onset Date Resolution Status Diabetic foot infection acut e [facility] Work Phone: evaluation note* Diagnosis Onset Date Resolution Status Acute hematogenous osteomyelitis, left ankle and foot acute [id number] acute Diabetic foot infection acut e Diarrhea acute Hypertension acute Osteomyelitis acute PAD (peripheral artery disease) acute Pseudomonas infection acute Sciatica, left side acute 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 acute Vomiting acute [facility] Work Phone: [email or web address] note* Diagnosis Foot ulcer, left, with fat [...] acute T2DM (type 2 diabetes mellitus) acute [facility] Work Phone: evaluation note* Diagnosis Foot ulcer, left, with fat layer exposed (CMS/HCC)- 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) PVD (peripheral vascular disease) (CMS/HCC) Unspecified peripheral vascular disease Foot ulcer, left, with necrosis of muscle (HCC) (CMS/HCC) documented in this encounter [facility] HealthcareEvaluation note* Diagnosis Onset Date Resolution Status SONYA (acute kidney injury) [place] Cellulitis of left foot acut e Constipation acute [id number] acute Diabetic foot infection acut e [place]rene of left foot acute Hypertension acute Hyperlipemia acute Hyponatremia acute Leukocytosis acute PAD (peripheral artery disease) acute PVD (peripheral vascular disease) acute Sepsis acute T2DM (type 2 diabetes mellitus) acute [facility] Work Phone: Evaluation note* Diagnosis Onset Date Resolution Status SONYA (acute kidney injury) [place] Anemia of renal disease acut e HTN (hypertension) acute Hyperlipemia acute Leukocytosis acute PAD (peripheral artery disease) acute T2DM (type 2 diabetes mellitus) acute Cellulitis of left foot reso lved Constipation resolved Hyponatremia resolved Sepsis resolved Acute hypoxic respiratory failure acute Acute pulmonary edema acute SONYA (acute kidney injury) ac [place] Anemia of renal disease acut e Elevated troponin level not due to acute coronary syndrome acute Encephalopathy acute ESRD (end stage renal disease) acute HTN (hypertension) acute Hyperlipemia acute Leukocytosis acute Osteomyelitis of left foot a cute PAD (peripheral artery disease) acute Respiratory failure acute T2DM (type 2 diabetes mellitus) acute Thrombocytosis acute Ulcer of left foot acute [facility] Work Phone: Evaluation note* Diagnosis Onset Date [...] acute T2DM (type 2 diabetes mellitus) acute [facility] Work Phone: Evaluation note* Diagnosis Onset Date Resolution Status SONYA (acute kidney injury) [place] Anemia of renal disease acut e HTN (hypertension) acute Hyperlipemia acute PAD (peripheral artery disease) acute T2DM (type 2 diabetes mellitus) acute Cellulitis of left foot reso lved Constipation resolved Hyponatremia resolved Leukocytosis resolved Sepsis resolved SONYA (acute kidney injury) ac [place] Anemia of renal disease acut e Elevated [...] mellitus) acute SONYA (acute kidney injury) ac [place] Anemia acute 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 acute Hyperphosphatemia acute Primary hypertension acute T2DM (type 2 diabetes mellitus) acute Vitamin D deficiency acute [facility] Work Phone: Evaluation note* Diagnosis Onset Date Resolution Status SONYA (acute kidney injury) ac [place] Anemia of renal disease acut e Elevated [...] mellitus) acute SONYA (acute kidney injury) ac [place] Anemia acute 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 acute Hyperphosphatemia acute Primary hypertension acute T2DM (type 2 diabetes mellitus) acute Vitamin D deficiency acute History of tracheostomy acut e Respiratory failure acute [facility] Work Phone: Evaluation note* Diagnosis Onset Date Resolution Status SONYA (acute kidney injury) ac [place] Anemia acute 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 acute Hyperphosphatemia acute Primary hypertension acute T2DM (type 2 diabetes mellitus) acute Vitamin D deficiency acute History of tracheostomy acut e Respiratory failure acute BMI 29.0-29.9,adult acute Dietary counseling and surveillance acute HTN (hypertension) acute Hyperlipemia acute T2DM (type 2 diabetes mellitus) acute [facility] Work Phone: Evaluation note* Diagnosis Onset Date Resolution Status SONYA (acute kidney injury) ac [place] Anemia acute 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 acute Hyperphosphatemia acute Primary hypertension acute T2DM (type 2 diabetes mellitus) acute Vitamin D deficiency acute History of tracheostomy acut e Respiratory failure acute BMI 29.0-29.9,adult acute Dietary counseling and surveillance acute HTN (hypertension) acute Hyperlipemia acute T2DM (type 2 diabetes mellitus) acute SONYA (acute kidney injury) ac [place] Anemia acute Chronic kidney disease, stage IV (severe) acute 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 acute Hyperphosphatemia acute Primary hypertension acute T2DM (type 2 diabetes mellitus) acute Vitamin D deficiency acute [facility] Work Phone: History and physical note Author Rohan Han [facility] July 11, 2023 8:33am Note Date/Time July 11, 2023 8:33am [facility] EN[facility] [address] [place] [address] Podiatry H&P Signed Patient: Chelsea Diego JR MR#: [id number] : 1950 Acct:[id number] Age/Sex: 72 / M Adm Date: 4 Loc: Room: [address] [place] [address] Type: ADM IN Attending Dr: Brennan Cerrato MD Copies to: MD Tejas Cruz MD Nicholas Brown, DPZeb~ HPI Date of Service Date of Service: [...] 3 months ago and last admission to [facility] hospital. Patient seen today for condition unrelated to prior procedure. Review of Systems Constitutional Constitutional: Reports body ache(s), Reports fever(s) and Reports night sweats Cardiovascular Comments: Denies chest pain shortness of breath or irregular rhythm Gastrointestinal Comments: Denies abdominal pain loose stool Musculoskeletal Comments: States pain to the left foot and history of degenerative disc disease of the back [facility] Medical History (Updated 07/11/23 @ 08:32 [...] Father Hypertension Mother Diabetes [facility]: Diagnosed with St[facility] Stroke Brother [...] further infection/scar/poor wound healing/nerve damage/cardiovascular issues including DVT/PE/MT/TIA and loss of digit/limb/or life. Pt consents [...] <Electronically signed by TOY Han> 07/11/23 0833 [facility] Work Phone: Hisubzu general Narrative - Reported* Type Description Date Medical History PROSTATE CANCER Medical History DM2 Medical History GERD Medical History HTN Medical History NEUROPATHY Medical History [place] Surgical History prostate surgery for cancer 01/25 Surgical History cholecystectomy 2010 Surgical History hernia repair 2009 Surgical History circumcision 11/2019 Hospitalization History SEE ABOVE SURGERY [facility] Other Hisrrcl general Narrative - Reported* Type Description Date Medical History PROSTATE CANCER Medical History DM2 Medical History GERD Medical History HTN Medical History NEUROPATHY Medical History [place] Surgical History prostate surgery for cancer 01/25 Surgical History cholecystectomy 2010 Surgical History hernia repair 2009 Surgical History circumcision 11/2019 Surgical History BILATERAL CATARACT REMOVAL 04/26 & 05/2022 Hospitalization History SEE ABOVE SURGERY [facility] Other Hisrbdz general Narrative - Reported* Type Description Date Medical History PROSTATE CANCER Medical History DM2 Medical History GERD Medical History HTN Medical History NEUROPATHY Medical History [place] Surgical History prostate surgery for cancer 01/25 Surgical History cholecystectomy 2010 Surgical History hernia repair 2009 Surgical History circumcision 11/2019 Surgical History BILATERAL CATARACT REMOVAL 04/26 & 05/2022 Surgical History tonsillectomy Surgical History appendectomy Surgical History rotator cuff tear repair Hospitalization History SEE ABOVE SURGERY [facility] Other Hiseosk general Narrative - Reported* Type Description Date Medical History PROSTATE CANCER Medical History DM2 Medical History GERD Medical History HTN Medical History NEUROPATHY Medical History [place] Medical History PAD Surgical History prostate surgery for cancer 01/25 Surgical History cholecystectomy 2010 Surgical History hernia repair 2009 Surgical History circumcision 11/2019 Surgical History BILATERAL CATARACT REMOVAL 04/26 & 05/2022 Surgical History tonsillectomy Surgical History appendectomy Surgical History rotator cuff tear repair Surgical History PART OF LEFT FOOT REMOVED ON OUTER FOOT 2022 Hospitalization History SEE ABOVE [facility] Other history general Narrative - Reported* Type Description Date Medical History PROSTATE CANCER Medical History DM2 Medical History GERD Medical History HTN Medical History NEUROPATHY Medical History [place] Medical History PAD Surgical History prostate surgery for cancer 01/25 Surgical History cholecystectomy 2010 Surgical History hernia repair 2010 Surgical History circumcision 11/2019 Surgical History BILATERAL CATARACT REMOVAL 04/26 & 05/2022 Surgical History tonsillectomy Surgical History appendectomy Surgical History rotator cuff tear repair Surgical History PART OF LEFT FOOT REMOVED ON OUTER FOOT 02/25/23 Hospitalization History SEE ABOVE SURGERY [facility] Other InstructionsNot on filedocumented in this encounter [facility] Summary Purpose Family History No Family History [...] wilfredo itus with hyperglycemia (E11.65) Referral Organization [facility] Referring Provider First Name Louise Referring Provider Last Name Ashleigh Referring Provider Specialty Nurse Pract itioner Referred Organization [facility] Referred Provider Rohan Han Referred Address ,[place], [place],[address] Referred Provider Specialty Podiatry - S urgical Chiropody Referral Priority Routine Referral Appointment Date 2022-07-30 General Notes Socorro iHguera 07/2022 09:45:27 AM >CALL TO DR SHARMA'S OFFICE FOR SCHEDULING PATIENCE; ADDRESS: [address] [place] [address] PHONE: [phone]; PATIENT HAS BEEN DISCHARGED FROM PRACTICE DUE TO FINANCIAL PAST DUE/COLLECTIONS STATUS; Socorro Higuera 07/26/2022 09:52:59 AM >SCHEDULED WITH DR. ROHAN HAN IN [place] ON 07/30/22. BE THERE AT 2PM FOR A 230PM APPT. ADDRESS: [address] [place] [address]; PHONE: [phone]. ATTEMPTED TO INFORM PATIENT. VOICEMAIL FULL. WILL TRY AGAIN LATER. REFERRAL, OFFICE NOTES AND MED LIST FAXED TO [phone]. REACHED PATIENT AND HE IS INFORMED OF APPT STATUS. REFERRAL FAXED. 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 lt foot issues, hx diabetic IV antibiotic therapy, osteomyelitis iv antibotic therapy, osteomyelitis 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.40 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 Reason for Visit Acute hematogenous o steomyelitis, left ankle and foot [id number] Diabetic foot infection Diarrhea Hypertension Osteomyelitis PAD (peripheral artery disease) Pseudomonas infection Sciatica, left side 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 Vomiting Chief Complaint 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 lt foot issues, hx diabetic IV antibiotic therapy, osteomyelitis iv antibotic therapy, osteomyelitis 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.40 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 e10.42 m86.172 Reason for Visit Acute hematogenous o steomyelitis, left ankle and foot [id number] Diabetic foot infection Diarrhea Hypertension Osteomyelitis PAD (peripheral artery disease) Pseudomonas infection Sciatica, left side 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 Vomiting Chief Complaint 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 lt foot issues, hx diabetic IV antibiotic therapy, osteomyelitis iv antibotic therapy, osteomyelitis E11.40 senior living current use of antibiotics e10.42 m86.172 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 Reason for Visit Acute hematogenous o steomyelitis, left ankle and foot [id number] Diabetic foot infection Diarrhea Hypertension Osteomyelitis PAD [...] in jury) Cellulitis of left foot Constipation [id number] Diabetic foot infection Gangrene of left foot [...] DATE CREATED AUTHOR 07/27/2022 [facility] DATE CREATED AUTHOR AUTHOR'S ORGANIZ ATION 11/10/2023 [facility] DATE CREATED AUTHOR AUTHOR'S ORGANIZ ATION 01/18/2024 [facility] DATE CREATED AUTHOR AUTHOR'S ORGANIZ ATION 01/20/2024 [facility] DATE CREATED AUTHOR AUTHOR'S ORGANIZ ATION 01/23/2024 [facility] DATE CREATED AUTHOR AUTHOR'S ORGANIZ ATION 01/28/2024 [facility] EPIC Care Teams (unrecognized [...] MD Other Provider Active Pamela Berry , LAND RESOURCE SPECIALIST-C Other Provider Active Mayra Youngblood MD Other Provider Active Givoanni Ni MD Other Provider Active Orestes Mejia DO Attending Provider Active Team Status: Inactive Member Role Status Dates Michael Ramírez MD Attending Provider Active Team Status: Active Member Role Status Dates John Ervin DO Primary Care Provider Active Juan Ramon Shields APRN LAND RESOURCE SPECIALIST-C Active Louise Sotelo APRN Attending Provider Active Team Status: Inactive Member Role Status Dates Rohan Han DPM Attending Provider Active Memory Care Program Resident Relationship Specialty Start Date End Date Tejas Stevens MD [address] [place] [address] PCP - General Family Medicine 07/12/19 Memory Care Program Resident Relationship Specialty Start Date End Date Tejas Stevens MD PCP - General Cardiology 11/07/22 Tejas Stevens MD [address] [place] [address] PCP - Devoted 05/26/23 Memory Care Program Resident Relationship Specialty Start Date End Date Tejas Stevens MD PCP - General Cardiology 11/07/22 Tejas Stevens MD [address] [place] [address] PCP - Devoted 05/26/23 Team Status: [...] June 26, 2023 Juan Ramon Shields APRN LAND RESOURCE SPECIALIST-C Active Sta rt: June 26, 2023 End: June 26, 2023 Louise Sotelo APRN Attending Provider Active Start: June 26, 2023 End: June 26, 2023 Memory Care Program Resident Relationship Specialty Start Date End Date Tejas Stevens MD PCP - General Cardiology 11/07/22 Tejas Stevens MD [address] [place] [address] PCP - Devoted 05/26/23 Team Status: Active Member Role Status Dates Tejas Stevens MD Primary Care Provider Active S tart: July 10, 2023 Brittney Hudson APRN Emergency Provider Active Start: July 10, 2023 Arnaldo Thomas MD Admit Provider, Atte nding Provider Active Start: July 10, 2023 Memory Care Program Resident Relationship Specialty Start Date End Date Tejas Stevens MD PCP - General Cardiology 11/07/22 Tejas Stevens MD [address] [place] [address] PCP - Devoted 05/26/23 Team Status: Active [...] : July 10, 2023 Pamela Berry , LAND RESOURCE SPECIALIST-C Other Provider Active St art: July 10, [...] Status: Active Member Role Status Dates Tejas Stevesn MD Primary Care Provider Active S tart: [...] Sanket Hammer MD Other Provider Active Start: [facility] 2023 End: July 26, 2023 Richa Slater LPN Other Provider Active Star t: July 10, 2023 End: July 26, 2023 Dhruv Bautista MD Other Provider Active Start : July 10, 2023 End: July 26, 2023 MATTHEW ChavezC Other Provider Active St art: July 10, [...] 13, 2023 Ganga Kennedy MD Active Start: [facility] 2023 Team Status: Active Member Role Status [...] Sanket Hammer MD Other Provider Active Start: [place] 2023 Richa Slater LPN Other Provider Active [...] 19, 2023 Naida Amaya MD Active Start: [facility] 2023 Team Status: Active Member Role Status [...] Hammer MD Other Provider Active Start: 2023 Richa Slater LPN Other Provider Active Star t: July 21, 2023 Dhruv Bautista MD Other Provider Active Start : July 21, 2023 MATTHEW ChavezC Other Provider Active St art: July 21, 2023 Giovanni Ni MD Other Provider Active Start: July 21, 2023 Hermes Morton MD Other Provider Active Start: July 21, 2023 Vania Chacon MD Other Provider Active Start: 2023 Team Status: Active Member Role Status [...] Provider Active Start : July 22, 2023 MARCO ANTONIO Chavez Other Provider Active St art: July 22, [...] Hammer MD Other Provider Active Start: [facility] [place] 2023 Richa Slater LPN Other Provider Active Star t: July 26, 2023 Dhruv Bautista MD Other Provider Active Start : July 26, 2023 MARCO ANTONIO Chavez Other Provider Active St art: July 26, 2023 Giovanni Ni MD Other Provider Active Start: July 26, 2023 Hermes Morton MD Other Provider Active Start: July 26, 2023 Geo Thomas DO Attending [facility] ider, Other Provider Active Start: July 26, [...] 2023 End: August 23, 2023 Sebastian Flores , DO Other Provider Active Start: August 01, 2023 End: August 23, 2023 Maame Jolley MD Other Provider Active Start: August 01, 2023 End: August 23, 2023 John Beyer MD Other Provider Active Start: August 01, 2023 End: August 23, 2023 Pravin Meza MD Other Provider Active Start: [facility] 2023 End: August 23, 2023 Andi Han , Other Provider Active Start: August 01, 2023 End: August 23, 2023 Alfonso Kilgore , Other Provider Active Start: August 01, 2023 End: August 23, 2023 Elder Varner MD Other Provider Active Start: [facility] 2023 End: August 23, 2023 Sury Winkler MD Other Provider Active Start: [facility] 2023 End: August 23, 2023 Chyna Molina NP-C Other Provider Active Start: August 01, 2023 End: August 23, 2023 Rancho Kay MD Other Provider Active Start: [facility] 2023 End: August 23, 2023 José Miguel Willingham MD Other Provider Active Star t: August 01, 2023 End: August 23, 2023 El Charles MD Other Provider Active Start: August 01, 2023 End: August 23, 2023 Sanket Hamemr MD Other Provider Active Start: [facility] 2023 End: August 23, 2023 Tika Monteiro Other Provider Active Start: August 01, 2023 End: August 23, 2023 Debbie Dennis DO Other Provider Active Start: August 01, 2023 End: August 23, 2023 Krish Lackey MD Other Provider Active Start : August 01, 2023 End: August 23, 2023 Mehul Cordon DO Other Provider Active Start: August 01, 2023 End: August 23, 2023 Sindy Grimse ANP-BC Other Provider Active Start: August 01, 2023 End: August 23, 2023 Pravin Rivers DO Other Provider Active Start: August 01, 2023 End: August 23, 2023 Munira Kamara APRN Other Provider Active St art: August 01, 2023 End: August 23, 2023 Crystal Casey NP-C Other Provider Active Sta rt: August 01, 2023 End: August 23, 2023 Sirisha Holm APRN-PEER TUTOR-C Other Provider Active Start: August 01, 2023 [...] Sury Winkler MD Other Provider Active Start: [facility] 2023 Chyna Molina NP-C Other Provider Active Start: August 01, 2023 Rancho Kay MD Other Provider Active Start: [facility] 2023 José Miguel Willingham MD Other Provider Active Star t: August 01, 2023 El Charles MD Other Provider Active Start: August 01, 2023 Sanket Hammer MD Other Provider Active Start: [facility] 2023 Megha Arriaga APRN ACNP-BC Other Provider Active Start: August 01, 2023 Fabio Camacho MD Other Provider Active Start: [facility] 2023 Mehul Garrett MD Other Provider Active Start: August 01, 2023 Mayra Mccarthy MD Other Provider Active St art: August 01, 2023 Sebastian Flores DO Other Provider Active Start: August 01, 2023 Maame Jolley MD Other Provider Active Start: August 01, 2023 John Beyer MD Other Provider Active Start: August 01, 2023 Pravin Meza MD Other Provider Active Start: [facility] 2023 Andi Han DO Other Provider Active Start: August 01, 2023 Alfonso Kilgore , Other Provider Active Start: August 01, 2023 Elder Varner MD Other Provider Active Start: 2023 Carlie Loyola RN Other Provider Active Star t: August 01, 2023 Nisa Vargas DO Other Provider Active [...] Other Provider Active Start: 2023 Monse Torres PEER TUTOR-BC Other Provider Active Sta rt: August 01, 2023 Sharon Galvan MD Other Provider Active Start: August 01, 2023 Team Status: Active Member Role Status Dates Tejas Stevens MD Primary Care Provider Active S tart: August 01, 2023 Geo Thomas DO Admit Provider , Other Provider Active Start: August 01, 2023 Megha Arriaga APRN [facility] Other Provider Active Start: August 01, 2023 [...] Elder Varner MD Other Provider Active Start: [facility] 2023 Sury Winkler MD Other Provider Active Start: [facility] 2023 MARCO ANTONIO Marc Other Provider Active Start: August 01, 2023 Rancho Kay MD Other Provider Active Start: [facility] 2023 José Miguel Willingham MD Other Provider Active Star t: August 01, 2023 El Charles MD Other Provider Active Start: August 01, 2023 Sanket Hammer MD Other Provider Active Start: [facility] 2023 Carlie Loyola RN Other Provider [...] Camacho MD Other Provider Active Start: 2023 eMhul Garrett MD Other Provider Active Start: August 01, 2023 Mayra Mccarthy MD Other Provider Active St art: August 01, 2023 Sebastian Flores DO Other Provider Active Start: August 01, 2023 Maame Jolley MD Other Provider Active Start: August 01, 2023 John Beyer MD Other Provider Active Start: August 01, 2023 Pravin Meza MD Other Provider Active Start: [facility] 2023 Andi Han DO Other Provider Active Start: August 01, 2023 Alfonso Kilgore DO Other Provider Active Start: August 01, 2023 Elder Varner MD Other Provider Active Start: [facility] 2023 Sury Winkler MD Attending Provider, Other Provider Active Start: August 01, 2023 MARCO ANTONIO Marc Other Provider Active Start: August 01, 2023 Rancho Kay MD Other Provider Active Start: [facility] 2023 José Miguel Willingham MD Other Provider Active Star t: August 01, 2023 El Charles MD Other Provider Active Start: August 01, 2023 Sanket Hammer MD Other Provider Active Start: [facility] 2023 Team Status: Active Member Role Status Dates Tejas Stevens MD Primary Care Provider Active S tart: August 02, 2023 Geo Thomas DO Admit Provider Active Start: August 02, 2023 Megha Arriaga , ELECTRIC MOTOR REBUILDER ACNP-BC Other Provider Active Start: August 02, 2023 Fabio Camacho MD Other Provider Active Start: [facility] 2023 Mehul Garrett MD Other Provider Active Start: August 02, 2023 Mayra Mccarthy MD Other Provider Active St art: August 02, 2023 Sebastian Flores DO Other Provider Active Start: August 02, 2023 Maame Jolley MD Other Provider Active Start: August 02, 2023 John Beyer MD Other Provider Active Start: August 02, 2023 Pravin Meza MD Other Provider Active Start: [facility] 2023 Andi Han DO Other Provider Active Start: August 02, 2023 Alfonso Kilgore DO Other Provider Active Start: August 02, 2023 Elder Varner MD Attending Provider, Other Provider Active Start: August 02, 2023 Sury Winkler MD Other Provider Active Start: [facility] 2023 MARCO ANTONIO Marc Other Provider Active Start: August 02, 2023 Rancho Kay MD Other Provider Active Start: [facility] 2023 José Miguel Willingham MD Other Provider Active Star t: August 02, 2023 El Charles MD Other Provider Active Start: August 02, 2023 Snaket Hammer MD Other Provider Active Start: [facility] 2023 Eulogio Ruvalcaba MD Other Provider Active Start : August 02, 2023 Team Status: Active Member Role Status Dates Tejas Stevens MD Primary Care Provider Active S tart: August 08, 2023 Geo Thomas DO Admit Provider Active Start: August 08, 2023 Megha Arriaga , ELECTRIC MOTOR REBUILDER ACNP-BC Other Provider Active Start: August 08, 2023 Fabio Camacho MD Other Provider Active Start: [facility] 2023 Mehul Garrett MD Other Provider Active Start: August 08, 2023 Mayra Mccarthy MD Other Provider Active St art: August 08, 2023 Sebastian Flores , DO Other Provider Active Start: August 08, 2023 Maame Jolley MD Other Provider Active Start: August 08, 2023 John Beyer MD Other Provider Active Start: August 08, 2023 Pravin Meza MD Other Provider Active Start: [facility] 2023 Andi Han , DO Other Provider Active Start: August 08, 2023 Alfonso Kilgore , Other Provider Active Start: August 08, 2023 Elder Varner MD Other Provider Active Start: [facility] 2023 Sury Winkler MD Other Provider Active Start: [facility] 2023 Chyna Molina NP-C Other Provider Active Start: August 08, 2023 Rancho Kay MD Other Provider Active Start: [facility] 2023 José Miguel Willingham MD Other Provider Active Star t: August 08, 2023 El Charles MD Other Provider Active Start: August 08, 2023 Sanket Hammer MD Other Provider Active Start: [facility] 2023 Vania Chacon MD Attending Provider, [...] Active Start: August 08, 2023 Pravin Rivers , Other Provider Active Start: August 08, 2023 Munira Kamara APRN Other Provider Active St art: August 08, 2023 Crystal Casey NP-C Other Provider Active Sta rt: August 08, 2023 Sirisha Holm APRN-PEER TUTOR-C Other Provider Active Start: August 08, 2023 Team Status: Active Member Role Status Dates Tejas Stevens MD Primary Care Provider Active S tart: August 08, 2023 Geo Thomas , DO Admit Provider Active Start: August 08, 2023 Megha Arriaga APRN ACNP-BC Other Provider Active Start: August 08, 2023 Fabio Camacho MD Other Provider Active Start: [facility] 2023 Mehul Garrett MD Other Provider Active Start: August 08, 2023 Mayra Mccarthy MD Other Provider Active St art: August 08, 2023 Sebastian Flores , Other Provider Active Start: August 08, 2023 Maame Jolley MD Other Provider Active Start: August 08, 2023 John Beyer MD Other Provider Active Start: August 08, 2023 Pravin Meza MD Other Provider Active Start: [facility] 2023 Andi Han , Other Provider Active Start: August 08, 2023 Alfonso Kilgore , Other Provider Active Start: August 08, 2023 Elder Varner MD Other Provider Active Start: [facility] 2023 Sury Winkler MD Other Provider Active Start: [facility] 2023 Chyna Molina NP-C Other Provider Active Start: August 08, 2023 Rancho Kay MD Other Provider Active Start: [facility] 2023 José Miguel Willingham MD Other Provider Active Star t: August 08, 2023 El Charles MD Other Provider Active Start: August 08, 2023 Sanket Hammer MD Attending Provider, Other Provider Active Start: August 08, 2023 Vania Chacon MD Other Provider Active Start: [facility] 2023 Tika Monteiro Other Provider Active Start: August 08, 2023 Debbie Dennis , Other Provider Active Start: August 08, 2023 Krish Lackey MD Other Provider Active Start : August 08, 2023 Mehul Cordon DO Other Provider Active Start: August 08, 2023 Sindy Grimes , ANP-BC Other Provider Active Start: August 08, 2023 Pravin Rivers DO Other Provider Active Start: August 08, 2023 Munira M Gillmor , ELECTRIC MOTOR REBUILDER Other Provider Active St art: August 08, 2023 Crystal Casey , LAND RESOURCE SPECIALIST-C Other Provider Active Sta rt: August 08, 2023 Sirisha Holm , ELECTRIC MOTOR REBUILDER-PEER TUTOR-C Other Provider Active Start: August 08, 2023 Team Status: Active Member Role Status Dates Tejas Stevens MD Primary Care Provider Active S tart: August 09, 2023 Geo Thomas , DO Admit Provider Active Start: August 09, 2023 Megha Arriaga , ELECTRIC MOTOR REBUILDER ACNP-BC Other Provider Active Start: August 09, 2023 Fabio Camacho MD Other Provider Active Start: [facility] 2023 Mehul Garrett MD Attending Pr ovider, Other Provider Active Start: August 09, 2023 Mayra Mcacrthy MD Other Provider Active St art: August 09, 2023 Sebastian Flores DO Other Provider Active Start: August 09, 2023 Maame Jolley MD Other Provider Active Start: August 09, 2023 John Beyer MD Other Provider Active Start: August 09, 2023 Pravin Meza MD Other Provider Active Start: [facility] 2023 Andi Han , Other Provider Active Start: August 09, 2023 Alfonso Kilgore DO Other Provider Active Start: August 09, 2023 Elder Varner MD Other Provider Active Start: [facility] 2023 Sury Winkler MD Other Provider Active Start: [facility] 2023 Chyna Molina NP-C Other Provider Active Start: August 09, 2023 Rancho Kay MD Other Provider Active Start: [facility] 2023 José Miguel Willingham MD Other Provider Active Star t: August 09, 2023 El Charles MD Other Provider Active Start: August 09, 2023 Sanket Hammer MD Other Provider Active Start: [facility] 2023 Tika Monteiro Other Provider Active Start: August 09, 2023 Debbie Dennis DO Other Provider Active Start: August 09, 2023 Krish Lackey MD Other Provider Active Start : August 09, 2023 Mehul Cordon DO Other Provider Active Start: August 09, 2023 Sindy Windnagel , ANP-BC Other Provider Active Start: August 09, 2023 Pravin Rivers , Other Provider Active Start: August 09, 2023 Munira Kamara APRN Other Provider Active St art: August 09, 2023 Crystal Casey NP-C Other Provider Active Sta rt: August 09, 2023 Sirisha Holm , ELECTRIC MOTOR REBUILDER-PEER TUTOR-C Other Provider Active Start: August 09, 2023 Eulogio Ruvalcaba MD Other Provider Active Start : August 09, 2023 Team Status: Active Member Role Status Dates Tejas Stevens MD Primary Care Provider Active S tart: August 15, 2023 Geo Thomas , Admit Provider , Attending Provider, Other Provider Active Start: August 15, 2023 Megha Arriaga ELECTRIC MOTOR REBUILDER ACNP-BC Other Provider Active Start: August 15, 2023 Fabio Camacho MD Other Provider Active Start: [facility] 2023 Mehul Garrett MD Other Provider Active Start: August 15, 2023 Mayra Mccarthy MD Other Provider Active St art: August 15, 2023 Sebastian Flores DO Other Provider Active Start: August 15, 2023 Maame Jolley MD Other Provider Active Start: August 15, 2023 John Beyer MD Other Provider Active Start: August 15, 2023 Pravin Meza MD Other Provider Active Start: [facility] 2023 Andi Han DO Other Provider Active Start: August 15, 2023 Alfonso Kilgore DO Other Provider Active Start: August 15, 2023 Elder Varner MD Other Provider Active Start: [facility] 2023 Sury Winkler MD Other Provider Active Start: [facility] 2023 Chyna Molina NP-C Other Provider Active Start: August 15, 2023 Rancho Kay MD Other Provider Active Start: [facility] 2023 José Miguel Willingham MD Other Provider Active Star t: August 15, 2023 El Charles MD Other Provider Active Start: August 15, 2023 Sanket Hammer MD Other Provider Active Start: [facility] 2023 Tika Sciarappa Other Provider Active Start: August 15, 2023 Debbie Dennis , DO Other Provider Active Start: August 15, 2023 Krish Lackey MD Other Provider Active Start : August 15, 2023 Mehul Cordon , Other Provider Active Start: August 15, 2023 Sindy Grimes , ANP-BC Other Provider Active Start: August 15, 2023 Pravin Rivers , Other Provider Active Start: August 15, 2023 Munira Kamara , ELECTRIC MOTOR REBUILDER Other Provider Active St art: August 15, 2023 Crystal Casey , LAND RESOURCE SPECIALIST-C Other Provider Active Sta rt: August 15, 2023 Sirisha Holm , ELECTRIC MOTOR REBUILDER-PEER TUTOR-C Other Provider Active Start: August 15, 2023 [...] Active Start: August 15, 2023 Megha Arriaga ELECTRIC MOTOR REBUILDER ACNP-BC Other Provider Active Start: August 15, 2023 Fabio Camacho MD Other Provider Active Start: [facility] 2023 Mehul Garrett MD Other Provider Active Start: August 15, 2023 Mayra Mccarthy MD Other Provider Active St art: August 15, 2023 Sebastian Flores , DO Other Provider Active Start: August 15, 2023 Maame Jolley MD Other Provider Active Start: August 15, 2023 John Beyer MD Other Provider Active Start: August 15, 2023 Pravin Meza MD Other Provider Active Start: [facility] 2023 Andi Han , Other Provider Active Start: August 15, 2023 Alfonso Kilgore , Other Provider Active Start: August 15, 2023 Elder Varner MD Other Provider Active Start: [facility] 2023 Sury Winkler MD Other Provider Active Start: [facility] 2023 Chyna Molina NP-C Other Provider Active Start: August 15, 2023 Rancho Kay MD Attending Provider, Other Provider Active Start: August 15, 2023 José Miguel Willingham MD Other Provider Active Star t: August 15, 2023 El Charles MD Other Provider Active Start: August 15, 2023 Sanket Hammer MD Other Provider Active Start: [facility] Tika Monteiro Other Provider Active [...] art: August 15, 2023 Crystal Casey , LAND RESOURCE SPECIALIST-C Other Provider Active Sta rt: August 15, 2023 Sirisha Holm ELECTRIC MOTOR REBUILDER-PEER TUTOR-C Other Provider Active Start: August 15, 2023 Darryl Britt DO Other Provider Active Start : August 15, 2023 STEVIE ButlerM Other Provider Active Sta rt: August 15, 2023 Team Status: Active Member Role Status Dates Tejas Stevens MD Primary Care Provider Active S tart: August 16, 2023 Geo Thomas , Admit Provider , Other Provider Active Start: August 16, 2023 Megha Arriaga ELECTRIC MOTOR REBUILDER ACNP-BC Other Provider Active Start: August 16, 2023 Fabio Camacho MD Other Provider Active Start: [facility] 2023 Mehul Garrett MD Other Provider Active Start: August 16, 2023 Mayra Mccarthy MD Other Provider Active St art: August 16, 2023 Sebastian Flores , Other Provider Active Start: August 16, 2023 Maame Jolley MD Other Provider Active Start: August 16, 2023 John Beyer MD Other Provider Active Start: August 16, 2023 Pravin Meza MD Other Provider Active Start: [facility] 2023 Andi Han , Other Provider Active Start: August 16, 2023 Alfonso Kilgore , DO Other Provider Active Start: August 16, 2023 Elder Varner MD Other Provider Active Start: [facility] 2023 Sury Winkler MD Other Provider Active Start: [facility] 2023 Chyna Molina NP-C Other Provider Active Start: August 16, 2023 Rancho Kay MD Other Provider Active Start: [facility] 2023 José Miguel Willingham MD Other Provider Active Star t: August 16, 2023 El Charles MD Other Provider Active Start: August 16, 2023 Sanket Hammer MD Other Provider Active Start: [facility] 2023 Tika Monteiro Other Provider Active Start: August 16, 2023 Debbie Dennis , Other Provider Active Start: August 16, 2023 Krish Lackey MD Other Provider Active Start : August 16, 2023 Mehul Cordon , Other Provider Active Start: August 16, 2023 Sindy Grimes , ANP-BC Other Provider Active Start: August 16, 2023 Praivn Rivers , Other Provider Active Start: August 16, 2023 Munira Kamraa APRN Other Provider Active St art: August 16, 2023 Crystal Casey NP-C Other Provider Active Sta rt: August 16, 2023 Sirisha Holm APRN-PEER TUTOR-C Other Provider Active Start: August 16, 2023 Darryl Britt DO Other Provider Active Start : August 16, 2023 Rohan Han DPM Other Provider Active Sta rt: August 16, 2023 Morales Dasilva MD Attending Provider Active Start: August 16, 2023 Team Status: Active Member Role Status Dates Tejas Stevens MD Primary Care Provider Active S tart: August 17, 2023 Geo Thomas DO Admit Provider , Other Provider Active Start: August 17, 2023 Megha Arriaga APRN ACNP-BC Other Provider Active Start: August 17, 2023 Fabio Camacho MD Other Provider Active Start: [facility] 2023 Mehul Garrett MD Other Provider Active Start: August 17, 2023 Mayra Mccarthy MD Other Provider Active St art: August 17, 2023 Sebastian Flores , DO Other Provider Active Start: August 17, 2023 Maame Jolley MD Other Provider Active Start: August 17, 2023 John Beyer MD Other Provider Active Start: August 17, 2023 Pravin Meza MD Other Provider Active Start: [facility] 2023 Andi Han , DO Other Provider Active Start: August 17, 2023 Alfonso Kilgore , Other Provider Active Start: August 17, 2023 Elder Varner MD Other Provider Active Start: [facility] 2023 Sury Winkler MD Other Provider Active Start: [facility] 2023 Chyna Molina NP-C Other Provider Active Start: August 17, 2023 Rancho Kay MD Other Provider Active Start: [facility] 2023 José Miguel Willingham MD Other Provider Active Star t: August 17, 2023 El Charles MD Other Provider Active Start: August 17, 2023 Sanket Hammer MD Other Provider Active Start: [facility] 2023 Tika Monteiro Other Provider Active Start: August 17, 2023 Debbie Dennis , Other Provider Active Start: August 17, 2023 Krish Lackey MD Other Provider Active Start : August 17, 2023 Mehul Cordon , Other Provider Active Start: August 17, 2023 Sidny Grimes , ANP-BC Other Provider Active Start: August 17, 2023 Pravin Rivers , Other Provider Active Start: August 17, 2023 Munira Kamara APRN Other Provider Active St art: August 17, 2023 Crystal Casey NP-C Other Provider Active Sta rt: August 17, 2023 Sirisha Holm APRN-PEER TUTOR-C Other Provider Active Start: August 17, 2023 Darryl Britt DO Other Provider Active Start : August 17, 2023 STEVIE uBtlerM Other Provider Active Sta rt: August 17, [...] Fabio Camacho MD Other Provider Active Start: [facility] 2023 Mehul Garrett MD Other Provider Active Start: August 22, 2023 Mayra Mccarthy MD Other Provider Active St art: August 22, 2023 Sebastian Flores , Other Provider Active Start: August 22, 2023 Maame Jolley MD Other Provider Active Start: August 22, 2023 John Beyer MD Other Provider Active Start: August 22, 2023 Pravin Meza MD Other Provider Active Start: [facility] 2023 Andi Han , Other Provider Active Start: August 22, 2023 Alfonso Kilgore , Other Provider Active Start: August 22, 2023 Elder Varner MD Other Provider Active Start: [facility] 2023 Sury Winkler MD Attending Provider, Other Provider Active Start: August 22, 2023 Chyna Molina NP-C Other Provider Active Start: August 22, 2023 Rancho Kay MD Other Provider Active Start: [facility] 2023 José Miguel Willingham MD Other Provider Active Star t: August 22, 2023 El Charles MD Other Provider Active Start: August 22, 2023 Sanket Hammer MD Other Provider Active Start: [facility] 2023 Tika Monteiro Other Provider Active Start: August 22, 2023 Debbie Dennis , Other Provider Active Start: August 22, 2023 Krish Lackey MD Other Provider Active Start : August 22, 2023 Mehul Cordon , Other Provider Active Start: August 22, 2023 Sindy Grimes , ANP-BC Other Provider Active Start: August 22, 2023 Pravin Rivers DO Other Provider Active Start: August 22, 2023 Munira Kamara APRN Other Provider Active St art: August 22, 2023 Crystal Casey LAND RESOURCE SPECIALIST-C Other Provider Active Sta rt: August 22, 2023 Sirisha Holm , ELECTRIC MOTOR REBUILDER-PEER TUTOR-C Other Provider Active Start: August 22, 2023 Darryl Britt DO Other Provider Active Start : August 22, 2023 STEVIE ButlerM Other Provider Active Sta rt: August 22, [...] Fabio Camacho MD Other Provider Active Start: [facility] 2023 Mehul Garrett MD Other Provider Active Start: August 22, 2023 Mayra Mccarthy MD Other Provider Active St art: August 22, 2023 Sebastian Flores DO Other Provider Active Start: August 22, 2023 Maame Jolley MD Other Provider Active Start: August 22, 2023 John Beyer MD Other Provider Active Start: August 22, 2023 Pravin Meza MD Other Provider Active Start: [facility] 2023 Andi Han DO Other Provider Active Start: August 22, 2023 Alfonso Kilgore DO Other Provider Active Start: August 22, 2023 Elder Varner MD Other Provider Active Start: [facility] 2023 Sury Winkler MD Other Provider Active Start: [facility] 2023 MARCO ANTONIO Marc Other Provider Active Start: August 22, 2023 Rancho Kay MD Other Provider Active Start: [facility] 2023 José Miguel Willingham MD Other Provider Active Star t: August 22, 2023 El Charles MD Other Provider Active Start: August 22, 2023 Sanket Hammer MD Other Provider Active Start: [facility] 2023 Tika Monteiro Other Provider Active [...] Active Start: August 22, 2023 Munira Kamara , ELECTRIC MOTOR REBUILDER Other Provider Active St art: August 22, 2023 Crystal Casey , LAND RESOURCE SPECIALIST-C Other Provider Active Sta rt: August 22, 2023 Sirisha Holm , ELECTRIC MOTOR REBUILDER-PEER TUTOR-C Other Provider Active Start: August 22, 2023 Darryl Britt , Other Provider Active Start : August 22, 2023 Rohan Han DPM Other Provider Active Sta rt: August 22, 2023 Michael Ramírez MD Other Provider Active Start: August 22, 2023 Arnaldo Thomas MD Attending Provider, Other Provider Active Start: August 22, 2023 Team Status: Active Member Role Status Dates Tejas Stevens MD Primary Care Provider Active S tart: August 23, 2023 Geo Thomas , Admit Provider Active Start: August 23, 2023 Megha Arriaga ELECTRIC MOTOR REBUILDER ACNP-BC Other Provider Active Start: August 23, 2023 Fabio Camacho MD Other Provider Active Start: [facility] 2023 Mehul Garrett MD Other Provider Active Start: August 23, 2023 Mayra Mccarthy MD Other Provider Active St art: August 23, 2023 Sebastian Flores , Other Provider Active Start: August 23, 2023 Maame Jolley MD Other Provider Active Start: August 23, 2023 John Beyer MD Other Provider Active Start: August 23, 2023 Pravin Meza MD Other Provider Active Start: [facility] 2023 Andi Han , Other Provider Active Start: August 23, 2023 Alfonso Kilgore DO Other Provider Active Start: August 23, 2023 Elder Varner MD Other Provider Active Start: [facility] 2023 Sury Winkler MD Other Provider Active Start: [facility] 2023 MATTHEW MarcC Other Provider Active Start: August 23, 2023 Rancho Kay MD Other Provider Active Start: [facility] 2023 José Miguel Willingham MD Other Provider Active Star t: August 23, 2023 El Charles MD Other Provider Active Start: August 23, 2023 Sanket Hammer MD Other Provider Active Start: [facility] 2023 Tika Monteiro Other Provider Active Start: August 23, 2023 Debbie Dennis , Other Provider Active Start: August 23, 2023 Krish Lackey MD Other Provider Active Start : August 23, 2023 Mehul Cordon , Other Provider Active Start: August 23, 2023 Sindy Grimes ANP-BC Other Provider Active Start: August 23, 2023 Pravin Rivers DO Other Provider Active Start: August 23, 2023 Munira Kamara APRN Other Provider Active St art: August 23, 2023 Crystal Casey NP-C Other Provider Active Sta rt: August 23, 2023 Sirisha Holm APRN-PEER TUTOR-C Other Provider Active Start: August 23, 2023 [...] Sury Winkler MD Other Provider Active Start: [facility] 2023 End: August 23, 2023 MATTHEW MarcC Other Provider Active Start: August 01, 2023 End: August 23, 2023 Rancho Kay MD Other Provider Active Start: [facility] 2023 End: August 23, 2023 José Miguel Willingham MD Other Provider Active Star t: August 01, 2023 End: August 23, 2023 El Charles MD Other Provider Active Start: August 01, 2023 End: August 23, 2023 Sanket Hammer MD Other Provider Active Start: [facility] 2023 End: August 23, 2023 Megha Arriaga APRN ACNP-BC Other Provider Active Start: August 01, 2023 End: August 23, 2023 Fabio Camacho MD Other Provider Active Start: [facility] 2023 End: August 23, 2023 Mehul [...] Pravin Meza MD Other Provider Active Start: [facility] 2023 End: August 23, 2023 Andi [...] Mari Dinero MD Other Provider Active Start: [facility] 2023 End: August 23, 2023 Jermaine Youngblood MD Other Provider Active Start: August 01, 2023 End: August 23, 2023 Fermin More MD Other Provider Active Start: 2023 End: August 23, 2023 Monse Torres PEER TUTOR-BC Other Provider Active Sta rt: August 01, [...] Pravin Meza MD Other Provider Active Start: [facility] 2023 End: August 23, 2023 Andi Han DO Other Provider Active Start: August 01, 2023 End: August 23, 2023 Alfonso Kilgore DO Other Provider Active Start: August 01, 2023 End: August 23, 2023 Elder Varner MD Other Provider Active Start: [facility] 2023 End: August 23, 2023 Sury Winkler MD Other Provider Active Start: [facility] 2023 End: August 23, 2023 Chyna Molina NP-C Other Provider Active Start: August 01, 2023 End: August 23, 2023 Rancho Kay MD Other Provider Active Start: [facility] 2023 End: August 23, 2023 José Miguel Willingham MD Other Provider Active Star t: August 01, 2023 End: August 23, 2023 El Charles MD Other Provider Active Start: August 01, 2023 End: August 23, 2023 Sanket Hammer MD Other Provider Active Start: [facility] 2023 End: August 23, 2023 Carlie [...] Fabio Camacho MD Other Provider Active Start: [facility] 2023 End: August 23, 2023 Mehul [...] Pravin Meza MD Other Provider Active Start: [facility] 2023 End: August 23, 2023 Andi Han DO Other Provider Active Start: August 01, 2023 End: August 23, 2023 Alfonso Kilgore DO Other Provider Active Start: August 01, 2023 End: August 23, 2023 Elder Varner MD Other Provider Active Start: [facility] 2023 End: August 23, 2023 Sury Winkler MD Attending Provider, Other Provider Active Start: August 01, 2023 End: August 23, 2023 Chyna Molina NP-C Other Provider Active Start: August 01, 2023 End: August 23, 2023 Rancho Kay MD Other Provider Active Start: [facility] 2023 End: August 23, 2023 José Miguel Willingham MD Other Provider Active Star t: August 01, 2023 End: August 23, 2023 El Charles MD Other Provider Active Start: August 01, 2023 End: August 23, 2023 Sanket Hammer MD Other Provider Active Start: [facility] 2023 End: August 23, 2023 Team [...] Fabio Camacho MD Other Provider Active Start: [facility] 2023 End: August 23, 2023 Mehul Garrett MD Other Provider Active Start: August 02, 2023 End: August 23, 2023 Mayra Mccarthy MD Other Provider Active St art: August 02, 2023 End: August 23, 2023 Sebastian Flores , Other Provider Active Start: August 02, 2023 End: August 23, 2023 Maame Jolley MD Other Provider Active Start: August 02, 2023 End: August 23, 2023 John Beyer MD Other Provider Active Start: August 02, 2023 End: August 23, 2023 Pravin Meza MD Other Provider Active Start: [facility] 2023 End: August 23, 2023 Andi Han , Other Provider Active Start: August 02, 2023 End: August 23, 2023 Alfonso Kilgore , Other Provider Active Start: August 02, 2023 End: August 23, 2023 Elder Varner MD Attending Provider, Other Provider Active Start: August 02, 2023 End: August 23, 2023 Sury Winkler MD Other Provider Active Start: [facility] 2023 End: August 23, 2023 Chyna Molina NP-C Other Provider Active Start: August 02, 2023 End: August 23, 2023 Rancho Kay MD Other Provider Active Start: [facility] 2023 End: August 23, 2023 José Miguel Willingham MD Other Provider Active Star t: August 02, 2023 End: August 23, 2023 El Charles MD Other Provider Active Start: August 02, 2023 End: August 23, 2023 Sanket Hammer MD Other Provider Active Start: [facility] 2023 End: August 23, 2023 Eulogio [...] Fabio Camacho MD Other Provider Active Start: [facility] 2023 End: August 23, 2023 Mehul [...] Pravin Meza MD Other Provider Active Start: [facility] 2023 End: August 23, 2023 Andi Han DO Other Provider Active Start: August 04, 2023 End: August 23, 2023 Alfonso Kilgore DO Other Provider Active Start: August 04, 2023 End: August 23, 2023 Elder Varner MD Other Provider Active Start: [facility] 2023 End: August 23, 2023 Sury Winkler MD Other Provider Active Start: [facility] 2023 End: August 23, 2023 MARCO ANTONIO Marc Other Provider Active Start: August 04, 2023 End: August 23, 2023 Rancho Kay MD Other Provider Active Start: [facility] 2023 End: August 23, 2023 José Miguel Willingham MD Other Provider Active Star t: August 04, 2023 End: August 23, 2023 El Charles MD Other Provider Active Start: August 04, 2023 End: August 23, 2023 Sanket Hammer MD Other Provider Active Start: [facility] 2023 End: August 23, 2023 Vania [...] , ANP-BC Other Provider Active Start: August 04, 2023 End: August 23, 2023 Pravin Rivers DO Other Provider Active Start: August 04, 2023 End: August 23, 2023 Munira Kamara APRN Other Provider Active St art: August 04, 2023 End: August 23, 2023 Crystal Casey , LAND RESOURCE SPECIALIST-C Other Provider Active Sta rt: August 04, 2023 End: August 23, 2023 Sirisha Holm , ELECTRIC MOTOR REBUILDER-PEER TUTOR-C Other Provider Active Start: August 04, 2023 End: August 23, 2023 Naida Amaya MD Active Start: [facility] 2023 End: August 23, 2023 Team [...] Fabio Camacho MD Other Provider Active Start: [facility] 2023 End: August 23, 2023 Mehul [...] Pravin Meza MD Other Provider Active Start: [facility] 2023 End: August 23, 2023 Andi Han DO Other Provider Active Start: August 08, 2023 End: August 23, 2023 Alfonso Kilgore DO Other Provider Active Start: August 08, 2023 End: August 23, 2023 Elder Varner MD Other Provider Active Start: [facility] 2023 End: August 23, 2023 Sury Winkler MD Other Provider Active Start: [facility] 2023 End: August 23, 2023 Chyna Molina NP-C Other Provider Active Start: August 08, 2023 End: August 23, 2023 Rancho Kay MD Other Provider Active Start: [facility] 2023 End: August 23, 2023 José Miguel Willingham MD Other Provider Active Star t: August 08, 2023 End: August 23, 2023 El Charles MD Other Provider Active Start: August 08, 2023 End: August 23, 2023 Sanket Hammer MD Attending Provider, Other Provider Active Start: August 08, 2023 End: August 23, 2023 Vania Chacon MD Other Provider Active Start: [facility] 2023 End: August 23, 2023 Tika [...] 2023 End: August 23, 2023 Sirisha Holm APRN-PEER TUTOR-C Other Provider Active Start: August 08, 2023 [...] Fabio Camacho MD Other Provider Active Start: [facility] 2023 End: August 23, 2023 Mehul Garrett MD Attending Pr cmer, Other Provider Active Start: August 09, 2023 [...] Pravin Meza MD Other Provider Active Start: [facility] 2023 End: August 23, 2023 Andi Han DO Other Provider Active Start: August 09, 2023 End: August 23, 2023 Alfonso Kilgoer DO Other Provider Active Start: August 09, 2023 End: August 23, 2023 Elder Varner MD Other Provider Active Start: [facility] 2023 End: August 23, 2023 Sury Winkler MD Other Provider Active Start: [facility] 2023 End: August 23, 2023 MARCO ANTONIO Marc Other Provider Active Start: August 09, 2023 End: August 23, 2023 Rancho Kay MD Other Provider Active Start: [facility] 2023 End: August 23, 2023 José Miguel Willingham MD Other Provider Active Star t: August 09, 2023 End: August 23, 2023 El Charles MD Other Provider Active Start: August 09, 2023 End: August 23, 2023 Sanket Hammer MD Other Provider Active Start: [facility] End: August 23, 2023 Tika Monteiro [...] 2023 End: August 23, 2023 Crystal Casey LAND RESOURCE SPECIALIST-C Other Provider Active Sta rt: August 09, 2023 End: August 23, 2023 Sirisha Holm APRN-PEER TUTOR-C Other Provider Active Start: August 09, 2023 [...] Fabio Camacho MD Other Provider Active Start: [facility] 2023 End: August 23, 2023 Mehul [...] Pravin Meza MD Other Provider Active Start: [facility] 2023 End: August 23, 2023 Andi Han , Other Provider Active Start: August 15, 2023 End: August 23, 2023 Alfonso Kilgore , Other Provider Active Start: August 15, 2023 End: August 23, 2023 Elder Varner MD Other Provider Active Start: [facility] 2023 End: August 23, 2023 Sury Winkler MD Other Provider Active Start: [facility] 2023 End: August 23, 2023 Chyna Molina NP-C Other Provider Active Start: August 15, 2023 End: August 23, 2023 Rancho Kay MD Other Provider Active Start: [facility] 2023 End: August 23, 2023 José Miguel Willingham MD Other Provider Active Star t: August 15, 2023 End: August 23, 2023 El Charles MD Other Provider Active Start: August 15, 2023 End: August 23, 2023 Sanket Hammer MD Other Provider Active Start: [facility] 2023 End: August 23, 2023 Tika Monteiro Other Provider Active Start: August 15, 2023 End: August 23, 2023 Debbie Dennis DO Other Provider Active Start: August 15, 2023 End: August 23, 2023 Krish Lackey MD Other Provider Active Start : August 15, 2023 End: August 23, 2023 Mehul Cordon , Other Provider Active Start: August 15, 2023 End: August 23, 2023 FLOWER Ruiz-BC Other Provider Active Start: August 15, 2023 End: August 23, 2023 Pravin Rivers DO Other Provider Active Start: August 15, 2023 End: August 23, 2023 Munira Kamara APRN Other Provider Active St art: August 15, 2023 End: August 23, 2023 Crystal Casey , LAND RESOURCE SPECIALIST-C Other Provider Active Sta rt: August 15, 2023 End: August 23, 2023 Sirisha Holm , ELECTRIC MOTOR REBUILDER-PEER TUTOR-C Other Provider Active Start: August 15, 2023 End: August 23, 2023 Darryl Britt DO Other Provider Active Start : August 15, 2023 End: August 23, 2023 STEVIE ButlerM Other Provider Active Sta rt: August 15, 2023 End: August 23, 2023 Team Status: Active Member Role Status Dates Tejas Stevens MD Primary Care Provider Active S tart: August 15, 2023 End: August 23, 2023 Geo Thomas DO Admit Provider , Other Provider Active Start: August 15, 2023 End: August 23, 2023 Megha Arriaga ELECTRIC MOTOR REBUILDER ACNP-BC Other Provider Active Start: August 15, 2023 End: August 23, 2023 Fabio Camacho MD Other Provider Active Start: [facility] 2023 End: August 23, 2023 Mehul [...] Pravin Meza MD Other Provider Active Start: [facility] 2023 End: August 23, 2023 Andi Han DO Other Provider Active Start: August 15, 2023 End: August 23, 2023 Alfonso Kilgore DO Other Provider Active Start: August 15, 2023 End: August 23, 2023 Elder Varner MD Other Provider Active Start: [facility] 2023 End: August 23, 2023 Sury Winkler MD Other Provider Active Start: [facility] 2023 End: August 23, 2023 Chyna [...] Sanket Hammer MD Other Provider Active Start: [facility] 2023 End: August 23, 2023 Tika [...] NP-C Other Provider Active Sta rt: August 15, 2023 End: August 23, 2023 Sirisha Holm APRN-PEER TUTOR-C Other Provider Active Start: August 15, 2023 [...] 16, 2023 End: August 23, 2023 Fabio aCmacho MD Other Provider Active Start: [facility] 2023 End: August 23, 2023 Mehul [...] Pravin Meza MD Other Provider Active Start: [facility] 2023 End: August 23, 2023 Andi Han DO Other Provider Active Start: August 16, 2023 End: August 23, 2023 Alfonso Kilgore DO Other Provider Active Start: August 16, 2023 End: August 23, 2023 Elder Varner MD Other Provider Active Start: [facility] 2023 End: August 23, 2023 Sury Winkler MD Other Provider Active Start: [facility] 2023 End: August 23, 2023 MARCO ANTONIO Marc Other Provider Active Start: August 16, 2023 End: August 23, 2023 Rancho Kay MD Other Provider Active Start: [facility] 2023 End: August 23, 2023 José Miguel Willingham MD Other Provider Active Star t: August 16, 2023 End: August 23, 2023 El Charles MD Other Provider Active Start: August 16, 2023 End: August 23, 2023 Sanket Hammer MD Other Provider Active Start: [facility] 2023 End: August 23, 2023 Tika Monteiro Other Provider Active Start: August 16, 2023 End: August 23, 2023 Debbie Dennis DO Other Provider Active Start: August 16, 2023 End: August 23, 2023 Krish Lackey MD Other Provider Active Start : August 16, 2023 End: August 23, 2023 Mehul Cordon [...] 2023 End: August 23, 2023 Crystal Casey LAND RESOURCE SPECIALIST-C Other Provider Active Sta rt: August 16, 2023 End: August 23, 2023 Sirisha Holm ELECTRIC MOTOR REBUILDER-PEER TUTOR-C Other Provider Active Start: August 16, 2023 [...] Fabio Camacho MD Other Provider Active Start: [facility] 2023 End: August 23, 2023 Mehul Garrett [...] Pravin Meza MD Other Provider Active Start: [facility] 2023 End: August 23, 2023 Andi Han , Other Provider Active Start: August 17, 2023 End: August 23, 2023 Alfonso Kilgore , Other Provider Active Start: August 17, 2023 End: August 23, 2023 Elder Varner MD Other Provider Active Start: [facility] 2023 End: August 23, 2023 Sury Winkler MD Other Provider Active Start: [facility] 2023 End: August 23, 2023 Chyna Molina NP-C Other Provider Active Start: August 17, 2023 End: August 23, 2023 Rancho Kay MD Other Provider Active Start: [facility] 2023 End: August 23, 2023 José Miguel Willingham MD Other Provider Active Star t: August 17, 2023 End: August 23, 2023 El Charles MD Other Provider Active Start: August 17, 2023 End: August 23, 2023 Sanket Hammer MD Other Provider Active Start: [facility] 2023 End: August 23, 2023 Tika [...] August 17, 2023 End: August 23, 2023 Crystal Casey , ANDRES-C Other Provider Active Sta rt: August 17, 2023 End: August 23, 2023 Sirisha Holm , ELECTRIC MOTOR REBUILDER-PEER TUTOR-C Other Provider Active Start: August 17, 2023 [...] 2023 End: August 23, 2023 Megha Arriaga ELECTRIC MOTOR REBUILDER ACNP-BC Other Provider Active Start: August 22, 2023 End: August 23, 2023 Fabio Camacho MD Other Provider Active Start: [facility] 2023 End: August 23, 2023 Mehul Garrett [...] August 22, 2023 End: August 23, 2023 MARCO ANTONIO Marc Other Provider Active Start: August 22, 2023 End: August 23, 2023 Rancho Kay MD Other Provider Active Start: [facility] 2023 End: August 23, 2023 José Miguel Willingham MD Other Provider Active Star t: August 22, 2023 End: August 23, 2023 El Charles MD Other Provider Active Start: August 22, 2023 End: August 23, 2023 Sanket Hammer MD Other Provider Active Start: [facility] 2023 End: August 23, 2023 Tika [...] August 22, 2023 End: August 23, 2023 MATTHEW PortilloC Other Provider Active Sta rt: August 22, 2023 End: August 23, 2023 Sirisha Holm APRN-PEER TUTOR-C Other Provider Active Start: August 22, 2023 [...] Fabio Camacho MD Other Provider Active Start: [facility] 2023 End: August 23, 2023 Mehul [...] Pravin Meza MD Other Provider Active Start: [facility] 2023 End: August 23, 2023 Andi Han DO Other Provider Active Start: August 22, 2023 End: August 23, 2023 Alfonso Kilgore DO Other Provider Active Start: August 22, 2023 End: August 23, 2023 Elder Varner MD Other Provider Active Start: [facility] 2023 End: August 23, 2023 Sury Winkler MD Other Provider Active Start: [facility] 2023 End: August 23, 2023 MARCO ANTONIO Marc Other Provider Active Start: August 22, 2023 End: August 23, 2023 Rancho Kay MD Other Provider Active Start: [facility] 2023 End: August 23, 2023 José Miguel Willingham MD Other Provider Active Star t: August 22, 2023 End: August 23, 2023 El Charles MD Other Provider Active Start: August 22, 2023 End: August 23, 2023 Sanket Hammer MD Other Provider Active Start: [facility] 2023 End: August 23, 2023 Tika Monteiro [...] 2023 End: August 23, 2023 Crystal Casey LAND RESOURCE SPECIALIST-C Other Provider Active Sta rt: August 22, 2023 End: August 23, 2023 Sirisha Holm APRN-PEER TUTOR-C Other Provider Active Start: August 22, 2023 [...] APRN ACNP-BC Other Provider Active Start: August 23, 2023 End: August 23, 2023 Fabio Camacho MD Other Provider Active Start: [facility] 2023 End: August 23, 2023 Mehul Garrett MD Other Provider Active Start: August 23, 2023 End: August 23, 2023 Mayra Mccarthy MD Other Provider Active St art: August 23, 2023 End: August 23, 2023 Sebastian Flores DO Other Provider Active Start: August 23, 2023 End: August 23, 2023 Maame Jolley MD Other Provider Active Start: August 23, 2023 End: August 23, 2023 John Beyer MD Other Provider Active Start: August 23, 2023 End: August 23, 2023 Pravin Meza MD Other Provider Active Start: [facility] 2023 End: August 23, 2023 Andi Han DO Other Provider Active Start: August 23, 2023 End: August 23, 2023 Alfonso Kilgore DO Other Provider Active Start: August 23, 2023 End: August 23, 2023 Elder Varner MD Other Provider Active Start: [facility] 2023 End: August 23, 2023 Sury Winkler MD Other Provider Active Start: [facility] 2023 End: August 23, 2023 MARCO ANTONIO Marc Other Provider Active Start: August 23, 2023 End: August 23, 2023 Rancho Kay MD Other Provider Active Start: [facility] 2023 End: August 23, 2023 José Miguel Willingham MD Other Provider Active Star t: August 23, 2023 End: August 23, 2023 El Charles MD Other Provider Active Start: August 23, 2023 End: August 23, 2023 Sanket Hammer MD Other Provider Active Start: [facility] 2023 End: August 23, 2023 Tika [...] End: August 23, 2023 Crystal Casey , LAND RESOURCE SPECIALIST-C Other Provider Active Sta rt: August 23, 2023 End: August 23, 2023 Sriisha Holm APRN-PEER TUTOR-C Other Provider Active Start: August 23, 2023 [...] January 05, 2024 End: January 05, 2024 Louise Sotelo APRN Attending Provider Active Start: January 05, 2024 [...] BE BASED ON THE PRIMARY CLINICAL RECORDS. [facility] [employer] [facility]. provides no warranty or guarantee of the accuracy or completeness of information in this document.
== END 2024-02-17 19:44 | disposition home or self-care (01) ==
LOC: SLEEP 19:43
PROVIDERS: PCP Family Medicine; Visit Provider Family Medicine
DX: G47.33 Obstructive sleep apnea (adult) (pediatric) (principal)
CPT/HCPCS: 95811

== ENCOUNTER 2024-03-30 12:42 | Outpatient (OUT) | payer OTHER, SELFPAY ==
[2024-03-30 13:14] LABS: Hematocrit 27.2 % (42.0-54.0); Hemoglobin 9.1 g/dL (14.0-18.0); Mean Corpuscular HGB Conc 33.5 g/dL (29.9-35.2); Mean Corpuscular Hemoglobin 30.5 pg (25.9-34.0); Mean Corpuscular Volume 91.3 fL (80.0-94.0); Mean Platelet Volume 9.6 fL (9.5-13.5); Platelet Count 328 10^3/uL (150-450); Red Blood Count 2.98 10^6/uL (4.70-6.10); Red Cell Distribution Width 13.1 % (11.0-15.0)
[2024-03-30 13:52] LABS: Bilirubin Urine NEGATIVE (NEGATIVE); Blood Urine TRACE-I (NEGATIVE); Clarity Urine CLEAR (CLEAR); Color Urine LT. YELLOW (YELLOW); Glucose Urine UA NEGATIVE (NEGATIVE); Ketones Urine NEGATIVE (NEGATIVE); Leukocyte Esterase Urine NEGATIVE (NEGATIVE); Nitrite Urine NEGATIVE (NEGATIVE); Protein Urine TRACE mg/dL (NEG/TRACE); Urobilinogen Urine 0.2 EU/dL (0.2-1.0); pH Urine 5.5 (5.0-9.0)
[2024-03-30 15:00] LABS: Albumin Level 3.5 g/dL (3.4-5.0); Anion Gap 16.6; BUN Creatinine Ratio 17.1; Calcium 9.1 mg/dL (8.5-10.1); Chloride 101 mmol/L (98-107); Estimated GFR (African America 22 (>=60 mL/min/1.73m^2); Estimated GFR (Non-African Ame 18 (>=60 mL/min/1.73m^2); Glucose 118 mg/dL (74-106); Magnesium 2.1 mg/dL (1.8-2.4); Phosphorus 4.3 mg/dL (2.6-4.7); Potassium 5.6 mmol/L (3.5-5.1); Sodium 137 mmol/L (136-145); Uric Acid 8.1 mg/dL (3.5-7.2)
[2024-03-31 01:40] LABS: Creatinine Urine Random 39.74 mg/dL (20.00-300.00); Microalbum Creatinine Ratio Ur 342.2 mg/g (0.0-29.9); Microalbumin Urine Random 13.6 mg/dL (<=30.0); Protein Creatinine Ratio Urine 0.57; Total Protein Urine Random 22.8 mg/dL (<=11.9)
[2024-03-31 10:10] LABS: PTH, Intact 59 pg/mL (15-65)
== END 2024-03-30 12:43 | disposition home or self-care (01) ==
LOC: LAB 12:45
PROVIDERS: PCP Family Medicine; Visit Provider Internal Medicine Nephrology
DX: I12.9 Hypertensive chronic kidney disease with stage 1 through stage 4 chronic kidney disease, or unspecified chronic kidney disease (principal); N18.4 Chronic kidney disease, stage 4 (severe); E55.9 Vitamin D deficiency, unspecified; E11.21 Type 2 diabetes mellitus with diabetic nephropathy; D64.9 Anemia, unspecified
CPT/HCPCS: 36415; 80069; 81003; 82043; 82306; 82570; 82728; 83540; 83550; 83735; 83970; 84156; 84166; 84550; 85027; 86335

== ENCOUNTER 2024-04-14 12:59 | Outpatient (OUT) | payer OTHER, SELFPAY ==
[2024-04-14 13:44] LABS: Albumin Level 3.1 g/dL (3.4-5.0); Anion Gap 16.1; BUN Creatinine Ratio 14.4; Chloride 100 mmol/L (98-107); Estimated GFR (African America 28 (>=60 mL/min/1.73m^2); Estimated GFR (Non-African Ame 23 (>=60 mL/min/1.73m^2); Glucose 154 mg/dL (74-106); Phosphorus 5.1 mg/dL (2.6-4.7); Potassium 5.1 mmol/L (3.5-5.1); Sodium 136 mmol/L (136-145)
== END 2024-04-14 13:00 | disposition home or self-care (01) ==
LOC: LAB 13:00
PROVIDERS: PCP Family Medicine; Visit Provider Internal Medicine Nephrology
DX: N18.4 Chronic kidney disease, stage 4 (severe) (principal); E87.5 Hyperkalemia
CPT/HCPCS: 36415; 80069

== ENCOUNTER 2024-05-03 15:03 | Outpatient (OUT) | payer OTHER, SELFPAY ==
--- NOTE | 2024-05-03 15:07 | CT_ITS ---
[address] [address] Patient Name: ARJUN MOSCOSO MRN: [id number] date: 1950 Sex: M Assigned Patient Location: CT Current Patient Location: Accession/Order Number: [id number] Exam Date: 05/03/2024 15:13 Report Date: 05/05/2024 04:57 At the request of: FABIOLA FERNANDES Procedure: CT chest wo con EXAMINATION: CT chest wo con HISTORY: Ground Glass Opacity COMPARISON: CT chest 10/31/2023 TECHNIQUE: Axial, Coronal, and Sagittal images were created without the administration of IV contrast material. Dose reduction techniques were achieved by using automated exposure control and/or adjustment of mA and/or kV according to patient size and/or use of iterative reconstruction technique. FINDINGS: LUNGS: Thin opacity adjacent the posterior lateral lower left chest wall; scarring versus trace amount of atelectasis or pleural thickening. Lungs have otherwise completely cleared. PLEURA: No mass, effusion, or pneumothorax. VASCULATURE: No abnormality. GILDARDO: Calcified left hilar lymph nodes suggestive chronic granulomatous disease. MEDIASTINUM: No mass or pathologic adenopathy. CARDIAC: No enlargement, pericardial thickening, or pericardial effusion. Coronary Artery calcifications: Coronary calcifications are moderate. AORTA: No aneurysm or dissection. CHEST WALL: No mass or axillary adenopathy BONES: No bone lesion or fracture. LIMITED ABDOMEN: No suspicious findings. Limited images of the upper abdomen. OTHER: Negative. CT/CT chest wo con IMPRESSION: 1. Clearing of the lungs except for a trace amount of scarring or possibly discoid atelectasis within posterior left lung base. No suspicious findings. Electronically authenticated by: CLAUDE CHENEY Date: 05/05/2024 04:57
== END 2024-05-03 15:04 | disposition home or self-care (01) ==
LOC: CT 15:03
PROVIDERS: PCP Family Medicine; Visit Provider Internal Medicine
DX: R91.8 Other nonspecific abnormal finding of lung field (principal)
CPT/HCPCS: 71250

== ENCOUNTER 2024-05-31 15:19 | Outpatient (OUT) | payer MEDICARE, SELFPAY ==
[2024-05-31 15:54] LABS: Hematocrit 30.7 % (42.0-54.0); Hemoglobin 10.3 g/dL (14.0-18.0); Mean Corpuscular HGB Conc 33.6 g/dL (29.9-35.2); Mean Corpuscular Hemoglobin 30.7 pg (25.9-34.0); Mean Corpuscular Volume 91.6 fL (80.0-94.0); Mean Platelet Volume 9.7 fL (9.5-13.5); Platelet Count 371 10^3/uL (150-450); Red Blood Count 3.35 10^6/uL (4.70-6.10); Red Cell Distribution Width 12.4 % (11.0-15.0); White Blood Count 17.1 10^3/uL (4.0-11.0)
[2024-05-31 16:30] LABS: Albumin Level 3.5 g/dL (3.4-5.0); Anion Gap 13.9; BUN Creatinine Ratio 13.2; Chloride 100 mmol/L (98-107); Estimated GFR (African America 27 (>=60 mL/min/1.73m^2); Estimated GFR (Non-African Ame 22 (>=60 mL/min/1.73m^2); Glucose 135 mg/dL (74-106); Phosphorus 4.3 mg/dL (2.6-4.7); Potassium 3.9 mmol/L (3.5-5.1); Sodium 137 mmol/L (136-145); Uric Acid 8.9 mg/dL (3.5-7.2)
[2024-05-31 18:26] LABS: Percent Iron Saturation 11.3 %
[2024-06-02 04:08] LABS: Vitamin B12 403 pg/mL (232-1245)
[2024-06-02 12:07] LABS: PTH, Intact 39 pg/mL (15-65)
== END 2024-05-31 15:20 | disposition home or self-care (01) ==
LOC: LAB 15:27
PROVIDERS: PCP Family Medicine; Visit Provider Internal Medicine Nephrology
DX: I12.9 Hypertensive chronic kidney disease with stage 1 through stage 4 chronic kidney disease, or unspecified chronic kidney disease (principal); N18.4 Chronic kidney disease, stage 4 (severe); E55.9 Vitamin D deficiency, unspecified; E11.21 Type 2 diabetes mellitus with diabetic nephropathy; D64.9 Anemia, unspecified
CPT/HCPCS: 36415; 80069; 81003; 82306; 82570; 82607; 82728; 82746; 83540; 83550; 83735; 83970; 84156; 84550; 85027

== ENCOUNTER 2024-06-01 11:16 | Outpatient (REF) | payer MEDICARE, SELFPAY ==
[2024-06-01 12:31] LABS: Creatinine Urine Random 271.85 mg/dL (20.00-300.00); Protein Creatinine Ratio Urine 0.71; Total Protein Urine Random 192.1 mg/dL (<=11.9)
[2024-06-01 12:57] LABS: Bilirubin Urine NEGATIVE (NEGATIVE); Blood Urine NEGATIVE (NEGATIVE); Clarity Urine CLEAR (CLEAR); Color Urine YELLOW (YELLOW); Glucose Urine UA NEGATIVE (NEGATIVE); Ketones Urine NEGATIVE (NEGATIVE); Leukocyte Esterase Urine NEGATIVE (NEGATIVE); Nitrite Urine NEGATIVE (NEGATIVE); Protein Urine 100 mg/dL (NEG/TRACE); Specific Gravity Urine >=1.030 (1.005-1.025); Urobilinogen Urine 0.2 EU/dL (0.2-1.0)
== END 2024-06-01 11:17 | disposition home or self-care (01) ==
LOC: LAB 11:16
PROVIDERS: PCP Family Medicine; Visit Provider Internal Medicine Nephrology
DX: I12.9 Hypertensive chronic kidney disease with stage 1 through stage 4 chronic kidney disease, or unspecified chronic kidney disease (principal); N18.4 Chronic kidney disease, stage 4 (severe); E11.21 Type 2 diabetes mellitus with diabetic nephropathy; D64.9 Anemia, unspecified; E83.39 Other disorders of phosphorus metabolism
CPT/HCPCS: 81003; 82570; 84156

== ENCOUNTER 2024-08-19 16:12 | Outpatient (OUT) | payer MEDICARE, SELFPAY ==
[2024-08-19 16:53] LABS: Hematocrit 30.7 % (42.0-54.0); Hemoglobin 10.5 g/dL (14.0-18.0); Mean Corpuscular HGB Conc 34.2 g/dL (29.9-35.2); Mean Corpuscular Hemoglobin 30.4 pg (25.9-34.0); Mean Platelet Volume 10.1 fL (9.5-13.5); Platelet Count 372 10^3/uL (150-450); Red Blood Count 3.45 10^6/uL (4.70-6.10); Red Cell Distribution Width 12.8 % (11.0-15.0)
[2024-08-19 17:37] LABS: Creatinine Urine Random 71.89 mg/dL (20.00-300.00); Protein Creatinine Ratio Urine 1.36; Total Protein Urine Random 98.1 mg/dL (<=11.9)
[2024-08-19 17:49] LABS: Albumin Level 3.4 g/dL (3.4-5.0); BUN Creatinine Ratio 20.9; Calcium 8.7 mg/dL (8.5-10.1); Carbon Dioxide 28.9 mmol/L (21.0-32.0); Chloride 102 mmol/L (98-107); Estimated GFR (African America 40 (>=60 mL/min/1.73m^2); Estimated GFR (Non-African Ame 33 (>=60 mL/min/1.73m^2); Glucose 165 mg/dL (74-106); Magnesium 1.9 mg/dL (1.8-2.4); Phosphorus 3.4 mg/dL (2.6-4.7); Potassium 3.9 mmol/L (3.5-5.1); Sodium 140 mmol/L (136-145); Uric Acid 7.8 mg/dL (3.5-7.2)
[2024-08-19 17:51] LABS: Percent Iron Saturation 26.8 %
[2024-08-21 04:11] LABS: Vitamin B12 327 pg/mL (232-1245)
[2024-08-22 13:08] LABS: PTH, Intact 61 pg/mL (15-65)
== END 2024-08-19 16:13 | disposition home or self-care (01) ==
LOC: LAB 16:14
PROVIDERS: PCP Family Medicine; Visit Provider Internal Medicine Nephrology
DX: E87.5 Hyperkalemia (principal); N18.4 Chronic kidney disease, stage 4 (severe); E55.9 Vitamin D deficiency, unspecified; E11.21 Type 2 diabetes mellitus with diabetic nephropathy; D64.9 Anemia, unspecified
CPT/HCPCS: 36415; 80069; 82306; 82570; 82607; 82728; 82746; 83540; 83550; 83735; 83970; 84156; 84550; 85027

== ENCOUNTER 2024-12-30 15:13 | Outpatient (OUT) | payer MEDICARE, SELFPAY ==
--- OUTSIDE RECORDS SUMMARY | 2024-05-03 07:01 | XMS_ITS ---
Author Organization [facility] in [place] Address [address] [place] [address] Care Team Providers Care Investment Executive Name Role Phone Tejas Bryant MD Primary Care Provider UnavailAlfonso Mccord [phone] REASON FOR VISIT Appt r/s Encounters Encounter Location Date Provider Diagnosis Pulmonary Medicine [address] [address] 05/03/2024 Alfonso Kilgore Plan Of Treatment No Information Progress Notes * Sudeep DIEGO JrDOB:[birth year] (73 yo M)Acc No.[id number]:05/03/2024 Patient: Dom Sudeep DELUCA Jr :1950 A ge:73 Y S ex:Male Address:[address] [place] [address], [address], [place] [address] * true * Date: Generated for Mikoi shaggy/Alaynag/eTransmitting on: 0 12/30/2024 03:18 PM EDT
--- OUTSIDE RECORDS SUMMARY | 2024-05-04 10:30 | XMS_ITS ---
Author Organization [facility] in [place] Address [address] [place] [address] Care Team Providers Care Gem Setter Name Role Phone Annette PIERRE, Tejas Primary Care Provider Unavailab Alfonso Quijano Unavailable [phone] REASON FOR VISIT 3 Mos F/U Chronic Resp Failure Encounters Encounter Location Date Provider Diagnosis Pulmonary Medicine [place] [address] [place] [address] 05/04/2024 Alfonso Kilgore Plan Of Treatment No Information Progress Notes * Sudeep DIEGO JrDOB:[birth year] (74 yo M)Acc No.[id number]:05/04/2024 UNLOCKED PROGRESS NOTE Follow Up Patient: Dom ROTHMANSudeep EASTON Jr Provider: Gasper Kilgore DO :1950 A ge:73 Y S ex:Male Date:05/04/2024 Address:[address] [place] [address], [address], [place], [id number] Pcp:Tejas Bryant MD Subjective: * Chief Complaints: * 1 . 3 Mos F/U Chronic Resp Failure. * Medical History: Objective: * Vitals: Assessment: Plan: * Treatment: * * Electronic signature of Loyda Kilgore DO on 12/30/2024 at 03:18 PM EDT Sign off status: Pending Visit Status: R /S (Rescheduled) * Provider: Gasper Kilgore DO Date: 07/05/2023 Generated for Erin coon/Tha/Eladio on: 0 12/30/2024 03:18 PM EDT
--- OUTSIDE RECORDS SUMMARY | 2024-06-23 10:00 | XMS_ITS ---
Author Organization [facility] in [place] Address [address] [place] [address] Care Team Providers Care Bingo Checker Name Role Phone Tejas Bryant MD Primary Care Provider Unavailab malcolm Magui Alfonso Unavailable [phone] Allergies Allergen (clinical drug ingredient) Drug/Non Drug Allergy documented on EMR Reaction Allergy Type Onset Date Status cefepime Cefepime hives, SOB Drug Allergy Active lisinopril Lisinopril Swelling Drug Allergy Activ e metformin metFORMIN Kidney Pain Drug Allergy Activ e vancomycin Vancomycin renal failure Drug Allergy A ctive REASON FOR VISIT 3 Mos F/U Chronic Resp Failure Medications Medication SIG (Take, Route, Frequency, Duration) Notes Start Date End Date Status Vitamin D 50 MCG (1999) 1 tablet Orally Once a day Active traMADol HCl 50 MG Oral for 7 Days Active traZODone HCl 50 MG TAKE 1 TABLET BY KIM AT BEDTIME Oral for 30 Days Active Sevelamer Carbonate 800 MG Oral for 30 Days Active Ipratropium [place] 0.06 % Nasal for 13 Days Active Metoprolol Succinate ER 50 MG TAKE 1 TABLET BY MOUTH DAILY Oral for 30 Days Active hydrOXYzine HCl 25 MG Oral for 15 Days Active Sertraline HCl 100 MG TAKE 1 TABLET BY OUTH DAILY Oral for 30 Days Active QUEtiapine Fumarate 100 MG Oral for 30 Days Active HumaLOG KwikPen 100 UNIT/ML as directed Subcutaneous 01/27/2024 Act rajat Famotidine 20 MG 1 tablet at bedtime as needed Orally Once a day Active Gabapentin 300 MG TAKE 1 CAPSULE BY H THREE TIMES DAILY (IN THE MORNING, IN THE EVENING, and BEFORE bedtime) Oral for 30 Days Active Clopidogrel Bisulfate 75 MG Oral for 30 Days Active Atorvastatin Calcium 40 MG Oral for 90 Days Active amLODIPine Besylate 10 MG Oral for 30 Days Active Basaglar KwikPen 100 UNIT/ML as directed Subcutaneous Act rajat Bumetanide 2 MG TAKE 1 TABLET BY KIM TH DAILY Oral for 30 Days Active Social History Tobacco Use: Social History Observation Description Date Details (start date - stop date) Unknown Tobacco use other than smoking: Question Answer Notes Are you an other tobacco user? Yes Tobacco Control (Standard) Question Answer Notes Tobacco use: Uses tobacco in other forms Additional Findings: Tobacco user e-cigarette Additional Findings: Tobacco non-user Ex-moderat e cigarette smoker (10-19/day) Problems Problem Type SNOMED Code ICD Code Onset Dates Problem Status W/U Status Risk Notes Problem [id number] Cannabis abuse, uncomplicated (F12.10) Active confirmed Vital Signs Temperature 97.0 degrees Fahrenheit 06/23/19 25 Blood pressure systolic 124 mm Hg 06/23/19 25 Blood pressure diastolic 64 mm Hg 025 Heart Rate 74 /min 06/23/2024 Respiratory Rate 18 /min 06/23/2024 Height 68 in 06/23/2024 Weight 189.2 lbs 06/23/2024 BMI 28.76 kg/m2 06/23/2024 Oximetry 95 % 06/23/2024 Encounters Encounter Location Date Provider Diagnosis [facility] [place] [address] [place] [address] 06/23/2024 Alfonso Kilgore Ground glass opacity present on imaging of lung R91.8 ; MICHAEL (obstructive sleep apnea) G47.33 ; Cannabis abuse, uncomplicated F12.10 ; Dysphonia R49.0 ; History of tobacco abuse Z87.891 and History of tracheostomy Z98.890 Assessments Encounter Date Diagnosis (ICD Code) Assessment Notes Treatment Notes Treatment Clinical Notes Section Notes 06/23/2024 Ground glass opacity present on imaging of lung (ICD-10 - R91.8) Groundglass opacities noted on chest CT 08/12/2023 and 10/30/2023. Resolved on chest CT 05/03/2024 with only a remnant scar in the LLL. He was counseled to stop vaping cannabis oil, which he voiced his displeassure. 06/23/2024 MICHAEL (obstructive sleep apnea) (ICD-10 - G47.33) PSG 01/06/2024: AHI 33( 3% rule) / 22.7 (4%) PAP titration 02/17/2024: Failed CPAP, recommended AutoBiPAP 17/04 with PS 4 Patient never bothered to get the BiPAP out of the box and returned it. Asking about Inspire. Explained that one of the criteria for Inspire is to fail or not tolerate an adequate trial of PAP therapy, which this patient failed to even try. Additionally, I am not sure if he would be a candidate given his recent tracheostomy. He then went on to say that no one explained MICHAEL, the risks of untreated MICHAEL, and why he would even need a BiPAP. I reviewed all this information with him his prior visit with me on 01/27/2024 - he recalls nothing of that encounter. Today, we re-reviewed risks of untreated MICHAEL, including cardiovascular such as CHF. I explained that since he returned the BiPAP, he may need to start the process completely over again d/t Medicare guidelines. The paitnet voiced he did not understand why Medicare wouldn't just give him a machine. I explained that Medicare does allow an expensive piece of equipment to someone who is not going to use it. He then stated that he would use the BiPAP, but I am not convinced that he is going to bother to make a concerted effort, especially when I told him (again) the minimal requirements are 70% of all nights with 4 hours or greater use. He is concerned about his tracheostomy...I offered to refer him last visit, but he refused. He now wants to go to one. I suggested he see the ENT to determine whether or not he is even going to be an Inspire candidate...if not, I highly doubt he would bother using the BiPAP. He can return PRN at this point. 06/23/2024 Cannabis abuse, uncomplicated (ICD-10 - F12.10) Patient is now vaping cannabis oil. I explained the risks of vaping oils, including the risk of lipoid pneumonia. He made one comment during the encounter that I'm more concerned he told me not to use cannabis! I explained if he feels he has to use it, don't use it via inhaled route given the pulmonary issues he has encountered within the last year. Overall, the encounter was somewhat bizarre. His significant other was reasonable and tried to reassure him, but the patient continued on. Unclear if his forgetfulness and/or demeanor are associated with his cannabis use? 06/23/2024 Dysphonia (ICD-10 - R49.0) Associated with tracheostomy 07/2023? Patient refused ENT referral last visit, but now wants to go to one. 06/23/2024 History of tobacco abuse (ICD-10 - Z87.891) 1ppd x 50 years, quit ~07/2023. Recommend his PCP begin LDCT screening, would be due 04/2025 - he has ~4 more years of eligibility until he reaches age 78 (currently covered LDCT guidelines). 06/23/2024 History of tracheostomy (ICD-10 - Z98.890) Patient had tracheostomy placed July 2023 which has subsequently been removed, with stoma fully healed. 06/23/2024 Other Patient was experiencing shortness of breath earlier this year. This has now resolved and he has no complaints of dyspnea. PFT 12/08/2023 trended towards mild obstruction; the pattern would fit with emphysema. As he is asymptomatic, there are no plans to start any medications at this time. If he does develop dyspnea, we will discuss starting appropriate treatment such as LAMA/LAMA. Patient's weight is inducing a restrictive pulmonary physiology. Weight loss indicated: Decrease calories, increase activity. Plan Of Treatment Treatment Notes Assessment Notes Ground glass opacity present on imaging of lung Groundglass opacities noted on chest CT 08/12/2023 and 10/30/2023. Resolved on chest CT 05/03/2024 with only a remnant scar in the LLL. He was counseled to stop vaping cannabis oil, which he voiced his displeassure. MICHAEL (obstructive sleep apnea) PSG 01/06/2024: AHI 33( 3% rule) / 22.7 (4%) PAP titration 02/17/2024: Failed CPAP, recommended AutoBiPAP 17/04 with PS 4 Patient never bothered to get the BiPAP out of the box and returned it. Asking about Inspire. Explained that one of the criteria for Inspire is to fail or not tolerate an adequate trial of PAP therapy, which this patient failed to even try. Additionally, I am not sure if he would be a candidate given his recent tracheostomy. He then went on to say that no one explained MICHAEL, the risks of untreated MICHAEL, and why he would even need a BiPAP. I reviewed all this information with him his prior visit with me on 01/27/2024 - he recalls nothing of that encounter. Today, we re-reviewed risks of untreated MICHAEL, including cardiovascular such as CHF. I explained that since he returned the BiPAP, he may need to start the process completely over again d/t Medicare guidelines. The paitnet voiced he did not understand why Medicare wouldn't just give him a machine. I explained that Medicare does allow an expensive piece of equipment to someone who is not going to use it. He then stated that he would use the BiPAP, but I am not convinced that he is going to bother to make a concerted effort, especially when I told him (again) the minimal requirements are 70% of all nights with 4 hours or greater use. He is concerned about his tracheostomy...I offered to refer him last visit, but he refused. He now wants to go to one. I suggested he see the ENT to determine whether or not he is even going to be an Inspire candidate...if not, I highly doubt he would bother using the BiPAP. He can return PRN at this point. Cannabis abuse, uncomplicated Patient is now vaping cannabis oil. I explained the risks of vaping oils, including the risk of lipoid pneumonia. He made one comment during the encounter that I'm more concerned he told me not to use cannabis! I explained if he feels he has to use it, don't use it via inhaled route given the pulmonary issues he has encountered within the last year. Overall, the encounter was somewhat bizarre. His significant other was reasonable and tried to reassure him, but the patient continued on. Unclear if his forgetfulness and/or demeanor are associated with his cannabis use? Dysphonia Associated with tracheostomy 07/2023? Patient refused ENT referral last visit, but now wants to go to one. History of tobacco abuse 1ppd x 50 years, quit ~07/2023. Recommend his PCP begin LDCT screening, would be due 04/2025 - he has ~4 more years of eligibility until he reaches age 78 (currently covered LDCT guidelines). History of tracheostomy Patient had tracheostomy placed July 2023 which has subsequently been removed, with stoma fully healed. Other Patient was experiencing shortness of breath earlier this year. This has now resolved and he has no complaints of dyspnea. PFT 12/08/2023 trended towards mild obstruction; the pattern would fit with emphysema. As he is asymptomatic, there are no plans to start any medications at this time. If he does develop dyspnea, we will discuss starting appropriate treatment such as LAMA/LAMA. Patient's weight is inducing a restrictive pulmonary physiology. Weight loss indicated: Decrease calories, increase activity. Next Appt Details Follow Up: PRN, Reason: Procedure Notes * Category Sub-Category Detail Notes PFT Data: 11/28/2023 - [facility]-F EV1/FVC: 74%-FEV1: 83%-FVC: 86%-QAA43-91%: 74%-Bronchodilator response: None-RV: 138%-T%-DLCO: 59% Progress Notes * Sudeep DIEGO JrDOB:[birth year] (73 yo M)Acc No.[id number]:06/23/2024 Follow Up Patient: Dom DELUCA Sudeep Provider: Gasper Kilgore DO :1950 A ge:73 Y S ex:Male Date:06/23/2024 Address:[address] [place] [address], [address] Pcp:Tejas Bryant MD Check In:01:58 PM ESTCheck O ut:02:40 PM EST Subjective: * Chief Complaints: * 3 Mos F/U Chronic Resp Failure * HPI: G eneral: Patient had PAP titration on 02/17/2024 - he failed CPAP and was changed to BiPAP. Recommended an AutoBiPAP 17/04 with PS4. Residual AHI was 4.9. The patient never bothered to even take the PAP out of his box. He is here today saying that I found something else that is better - there is that Inspire device. I replied that Inspire is considerered o nlyafter failing or not tolerating PAP therapy... He then blamed his medical caregivers for never explaining to him why he should be treated for MICHAEL in the first place. I corrected him and stated that I personally reviewed his sleep study with him at his prior appointment on 01/27/2024, discussed the PAP, and he voiced he wanted me to help manage him. I reviewed that his chest CT 05/03/2023 compared to 10/31/2023 showed resolution of the suspicious GGO and there is only a trace posterior LLL opacity vs. scar. At first, he did not remember that he even had the chest CT done, then he became shocked and almost angered exclaiming A scar? I have a scar in my lung? Why am I just finding out about this now? I explained again that the chest CT showed the suspicious areas had resolved - we were making sure it was not cancer - and there is only a small remnant scar where that GGO was. He then calmed down. He also began complaining about his throat associated with the tracheostomy. He was advised to see ENT regarding that. He continues to vape cannabis oil. MA Intake Comments:. Patient presents for a follow-up for Chronic Respiratory Failure. Patient is not using his O2/Therapy at this time. Patient states he sent the PAP machine back and does not want to use it. Patient states he does not snore and is retired, so he is not worried about getting sleep. Patient states he did not get even get the machine out of the bag. Patient is asking about the inspire device. Patient denies any SOB or Cough. Patient admits to vaping daily. Patient is under the care [facility] Cardiology. * ROS: G eneral/Constitutional: Fever or sweats d enies. C hange of appetite d enies. C hills d enies. W eight Change d enies. H EENT: Dry mouth d enies. S ore throat f eeling in his trachea associated with the tracheostomy. O ral Ulcers d enies. P ost Nasal Drip D enies. C ongestion D enies. H oarseness A dmits. C ardiovascular: Tachycardia d enies. E tyler D enies. C hest pain d enies. P alpitations d enies. R espiratory: Chest tightness d enies. P leurisy D enies. D yspnea d enies. C ough d enies. H emoptysis d enies. W heezing d enies.? G astrointestinal: Acid Reflux/GERD/Heartburn d enies. D ysphagia d enies. M usculoskeletal: Arthralgias/joint pain D enies. S kin: Easy bruising d enies. R jamison d enies. ? N eurologic: Seizures d enies. T remor d enies. H ematology: Abnormal Bleeding d enies. P sychiatric: Anxiety d enies. * Active Problem List G47.33 MICHAEL (obstructive sle ep apnea) Modified On:01/27/2024U Status:confirmed E11.9 DM2 (diabetes [facility], type 2) Modified On:01/27/2024U Status:confirmed Z87.891 History of tobacco a buse Modified On:01/27/2024U Status:confirmed R91.8 Ground glass opacity present on imaging of lung Modified On:01/27/2024U Status:confirmed D63.1 Anemia of renal dise ase Modified On:01/27/2024U Status:confirmed Z98.890 History of tracheost danielle Modified On:01/27/2024U Status:confirmed E66.9 Obesity, unspecified Modified On:01/27/2024U Status:confirmed Z68.30 Body mass index [BMI ] 30.0-30.9, adult Modified On:01/27/2024U Status:confirmed F12.10 Cannabis abuse, unco mplicated Modified On:06/23/2024U Status:confirmed * Medical History: * Surgical History: r otator cuff tear repair-right cholecystectomy appendectomy tracheostomy hernia repair amputation-left midfoot Angioplasty tonsillectomy * Hospitalization/Major Diagno stic Procedure: [place] [place] [place] [place] 10/31/2023 * Family History: M other: stroke, diagnosed with Unspecified essential hypertension, Diabetes mellitus without mention of complication, type II or unspecified type, not stated as uncontrolled. B rother(s): Sarcoma. M navneet uncle: diagnosed with Diabetes mellitus without mention of complication, type II or unspecified type, not stated as uncontrolled. Zeb toth aunt: diagnosed with Diabetes mellitus without mention of complication, type II or unspecified type, not stated as uncontrolled. * Social History: T obacco Use: T obacco Control (Standard) T obacco use: U ses tobacco in other forms A dditional Findings: Tobacco user e -cigarette A dditional Findings: Tobacco non-user E x-moderate cigarette smoker (10-19/day) Electronic Cigarette use C urrent user Y es LM: Additional Tobacco Questions N umber of Years Pt Smoked: 5 0 N umber of Packs per Day: 1 Tobacco use other than smoking A re you an other tobacco user? Y es When did you stop smokin06/2023. 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 D rugs/Alcohol: D rugs H ave you used drugs other than those for medical reasons in the past 12 months? N o D oes the Patient have a History of Drug Abuse in the Past? N o Caffeine I ntake: 3 -4 cups per day Soda/Coffee Do you drink alcohol?: No. Do you smoke marijuana?: Denies. * Medications: T akingamLODIPine Besylate 10 MG Tablet Oral Atorvastatin Calcium 40 MG Tablet Oral Basaglar KwikPen(Insulin Glargine) 100 UNIT/ML Solution Pen-injector as directed Subcutaneous Bumetanide 2 MG Tablet TAKE 1 TABLET BY MOUTH DAILY Oral Clopidogrel Bisulfate 75 MG Tablet Oral Famotidine 20 MG Tablet 1 tablet at bedtime as needed Orally Once a day Gabapentin 300 MG Capsule TAKE 1 CAPSULE BY MOUTH THREE TIMES DAILY (IN THE MORNING, IN THE EVENING, and BEFORE bedtime) Oral HumaLOG KwikPen(Insulin Lispro (1 Unit Dial)) 100 UNIT/ML Solution Pen-injector as directed Subcutaneous hydrOXYzine HCl 25 MG Tablet Oral Ipratropium [place] 0.06 % Solution Nasal Metoprolol Succinate ER 50 MG Tablet Extended Release 24 Hour TAKE 1 TABLET BY MOUTH DAILY Oral QUEtiapine Fumarate 100 MG Tablet Oral Sertraline HCl 100 MG Tablet TAKE 1 TABLET BY MOUTH DAILY Oral Sevelamer Carbonate 800 MG Tablet Oral traMADol HCl 50 MG Tablet Oral traZODone HCl 50 MG Tablet TAKE 1 TABLET BY MOUTH AT BEDTIME Oral Vitamin D 50 MCG (1999) Tablet 1 tablet Orally Once a day Taking amLODIPine Besylate 10 MG Tablet Oral Taking Atorvastatin Calcium 40 MG Tablet Oral Taking Basaglar KwikPen(Insulin Glargine) 100 UNIT/ML Solution Pen-injector as directed Subcutaneous Taking Bumetanide 2 MG Tablet TAKE 1 TABLET BY MOUTH DAILY Oral Taking Clopidogrel Bisulfate 75 MG Tablet Oral Taking Famotidine 20 MG Tablet 1 tablet at bedtime as needed Orally Once a day Taking Gabapentin 300 MG Capsule TAKE 1 CAPSULE BY MOUTH THREE TIMES DAILY (IN THE MORNING, IN THE EVENING, and BEFORE bedtime) Oral Taking HumaLOG KwikPen(Insulin Lispro (1 Unit Dial)) 100 UNIT/ML Solution Pen-injector as directed Subcutaneous Taking hydrOXYzine HCl 25 MG Tablet Oral Taking Ipratropium [place] 0.06 % Solution Nasal Taking Metoprolol Succinate ER 50 MG Tablet Extended Release 24 Hour TAKE 1 TABLET BY MOUTH DAILY Oral Taking QUEtiapine Fumarate 100 MG Tablet Oral Taking Sertraline HCl 100 MG Tablet TAKE 1 TABLET BY MOUTH DAILY Oral Taking Sevelamer Carbonate 800 MG Tablet Oral Taking traMADol HCl 50 MG Tablet Oral Taking traZODone HCl 50 MG Tablet TAKE 1 TABLET BY MOUTH AT BEDTIME Oral Taking Vitamin D 50 MCG (1999) Tablet 1 tablet Orally Once a day DiscontinuedBumetanide 2 MG Tablet Oral Spironolactone 50 MG Tablet Oral Medication List reviewed and reconciled with the patientDiscontinued Bumetanide 2 MG Tablet Oral Discontinued Spironolactone 50 MG Tablet Oral Medication List reviewed and reconciled with the patient * Allergies: L isinopril: Swelling - AllergymetFORMIN: Kidney Pain - AllergyCefepime: hives, SOB - AllergyVancomycin: renal failure - Allergyno[Allergies Verified] Objective: * Vitals: W t:189.2lbs, Ht: 68 in, BP:sittin/64mm Hg, Temp:Forehead:97.0F, HR:74/min, RR:18/min, BMI:28.76Index, Oxygen sat %:Room Air:95%, Ht-cm: 172.72 cm, Wt-k.82 kg. * Examination: E xam: GENERAL APPEARANCE: A ppears stated age. Skin N ormal. Mouth P ink and moist. Trachea M idline. Healed stoma. Chest N ormal. Respiratory Normal M ovements, E ffort N ormal. Auscultation D iminished breath sounds clear to auscultation. Cardiac R egular rate and rhythm. Gastrointestinal N ormal. Vascular N o edema. Musculoskeletal N ormal posture. Neurological F ocal, intact. Psychiatric S omewhat bizarre behavior, especially when reviewing his chest CT results. Mentation/Cognition D id not recall having a chest CT in April, nor remember what anyone ever discussed with him about MICHAEL or PAP treatment. ? Assessment: * Assessment: 1. O SA (obstructive sleep apnea) - G47.33 (Primary) 2 . G round glass opacity present on imaging of lung - R91.8 3 . C annabis abuse, uncomplicated - F12.10 4 . D ysphonia - R49.0 5 . H istory of tobacco abuse - Z87.891 6 . H istory of tracheostomy - Z98.890 Plan: * Treatment: 2. G round glass opacity present on imaging of lung Notes: Groundglass opacities noted on chest CT 08/12/2023 and 10/30/2023. Resolved on chest CT 05/03/2024 with only a remnant scar in the LLL. He was counseled to stop vaping cannabis oil, which he voiced his displeassure. 3. C annabis abuse, uncomplicated Notes: Patient is now vaping cannabis oil. I explained the risks of vaping oils, including the risk of lipoid pneumonia. He made one comment during the encounter that I'm more concerned he told me not to use cannabis! I explained if he feels he has to use it, don't use it via inhaled route given the pulmonary issues he has encountered within the last year. Overall, the encounter was somewhat bizarre. His significant other was reasonable and tried to reassure him, but the patient continued on. Unclear if his forgetfulness and/or demeanor are associated with his cannabis use? 4. D ysphonia Notes: Associated with tracheostomy 07/2023? Patient refused ENT referral last visit, but now wants to go to one. 5. H istory of tobacco abuse Notes: 1ppd x 50 years, quit ~07/2023. Recommend his PCP begin LDCT screening, would be due 04/2025 - he has ~4 more years of eligibility until he reaches age 78 (currently covered LDCT guidelines). ? 6. H istory of tracheostomy Notes: Patient had tracheostomy placed July 2023 which has subsequently been removed, with stoma fully healed. 7. O thers Notes: Patient was experiencing shortness of breath earlier this year. This has now resolved and he has no complaints of dyspnea. PFT 12/08/2023 trended towards mild obstruction; the pattern would fit with emphysema. As he is asymptomatic, there are no plans to start any medications at this time. If he does develop dyspnea, we will discuss starting appropriate treatment such as LAMA/LAMA. Patient's weight is inducing a restrictive pulmonary physiology. Weight loss indicated: Decrease calories, increase activity. * Procedures: P FT: Data: 11/28/2023 - [facility] -FEV1/FVC: 74% -FEV1: 83% -FVC: 86% -LCP51-30%: 74% -Bronchodilator response: None -RV: 138% -T% -DLCO: 59%. * Procedure Codes: * Preventive Medicine: COVID Vaccination: H as patient had COVID Vaccination? COVID Vaccination N o Patient Refused Immunization Status: P neumovacc P t Refused. I nfluenza P t Refused. Screenings/Counseling: F ALL RISK SCREENING Fall Risk Assessment: T wo or more falls without injury in the past year Are you afraid of falling? Y es T OBACCO ACTION PLAN Patient counselled on the dangers of tobacco use and urged to quit. 0 06/23/2024 Cessation counseling provided 0 06/23/2024 Yair TALAVERA EXCLUSION Reason: P atient Reason refused/declined Type of Patient Reason: D rug declined by patient B IN ACTION PLAN Above Normal BMI Follow-up D ietary management education, guidance, and counseling * Follow Up: P RN * * Sign off status: Completed Visit Status: C HK (Check Out) true * Provider: Gasper Kilgore DO Date: 0 06/23/2024 Generated for Erin coon/Tha/Princeitting on: 0 12/30/2024 03:17 PM EDT History and Physical Notes * HPI (History of Present Illness) Category Sub-Category Detail Notes Category Not es General Patient present s for a follow-up for Chronic Respiratory Failure. Patient is not using his O2/Therapy at this time. Patient states he sent the PAP machine back and does not want to use it. Patient states he does not snore and is retired, so he is not worried about getting sleep. Patient states he did not get even get the machine out of the bag. Patient is asking about the inspire device. Patient denies any SOB or Cough. Patient admits to vaping daily. Patient is under the care [facility] Cardiology. Examination Category Sub-Category Detail Notes Category Not es Exam GENERAL APPEARANCE: Appears stated age Skin Normal Mouth Ramer and moist Trachea Midline. Healed stom a Chest Normal Respiratory Normal Movements, Ef fort Normal Auscultation Diminished breath so unds clear to auscultation Cardiac Regular rate and rhy thm Gastrointestinal Normal Vascular No edema Musculoskeletal Normal posture Neurological Focal, intact Psychiatric Somewhat bizarre beh avior, especially when reviewing his chest CT results Mentation/Cognition Did not recall migue lopez a chest CT in April, nor remember what anyone ever discussed with him about MICHAEL or PAP treatment
--- OUTSIDE RECORDS SUMMARY | 2024-12-30 15:17 | XMS_ITS | Encounter Summary ---
Author Organization [facility] Address [address] [place] [address] Care Team Providers Care Research Home Economist Name Role Phone Tejas Bryant MD Primary Care Provider [phone] Encounter Details Date Type Department Care Team (Late st Contact Info) Description 08/29/2023 Lab Requisition [facility] Lab [address] [place] [phone] Rohan Shin MD [address] [place], [place] [id number] Social History Tobacco Use Types Packs/Day Years Used Date Smoking Tobacco: Never Assessed [place] Safety & Environment Answer Date Rec orded Fear of Current or Ex-Partner Not on file Emotionally Abused Not on file 07/17/2023 Physically Abused Not on file 07/17/2023 Sexually Abused Not on file 07/17/2023 Physically or Sexually Abused Not on file Sex and Gender Information Value Date Recorded Sex Assigned at Not on file Legal Sex Male 12:44 AM EDT Gender Identity Not on file Sexual Orientation Not on file documented as of this encounter Plan of Treatment Not on file documented as of this encounter Procedures Procedure Name Priority Date/Time Associated Diagnosis Comments MISCELLANEOUS LAB TEST Routine 9:00 AM EDT URINALYSIS MICROSCOPIC Routine 9:00 AM EDT URINALYSIS Routine 08/29/2023 9:00 AM EDT URINE CULTURE Routine 08/29/2023 9:00 AM EDT documented in this encounter Results * - Miscellaneous Test (08/29/2023 9:00 AM EDT) Urine Urine specimen obtained by clean catch procedure / Unknown 08/29/2023 9:00 AM EDT 08/29/2023 12:32 PM EDT Narrative EXTERNAL NON-INTERFACED LAB - 09/24/2023 4:33 PM EDT See scanned results us Rohan Shin MD LAB BLOOD ORDERABLES Final Result EXTERNAL NON-INTERFACED LAB * (ABNORMAL) Urinalysis microscopic (08/29/2023 9:00 AM EDT) RBC, Urine 21-50(A) None Seen /HPF 08/29/2023 1:09 PM EDT [facility] ([facility]) WBC, Urine 21-50(A) None Seen /HPF 08/29/2023 1:09 PM EDT [facility] ([facility]) Squamous Epithelial, Urine None Seen None Seen, Occasional /HPF 08/29/2023 1:09 PM EDT [facility] ([facility]) Mucus, Urine Many(A) None Seen, Occasional, Few /HPF 08/29/2023 1:09 PM EDT [facility] ([facility]) Casts, Urine 08/29/2023 1:09 PM EDT [facility] ([facility]) Crystals, Urine 08/29/2023 1:09 PM EDT [facility] ([facility]) Urine Urine specimen obtained by clean catch procedure / Unknown 08/29/2023 9:00 AM EDT 08/29/2023 12:32 PM EDT us Rohan Shin MD LAB URINE ORDERABLES Final Result [facility] ([facility]) [address] [place] [address] * (ABNORMAL) Urine culture, routine (08/29/2023 9:00 AM EDT) Urine Culture >100,000 CFU/Ml Klebsiella pneumoniae CRE(AA) BAUDILIO 09/01/2023 10:40 AM EDT [facility] ([facility]) Urine Urine specimen obtained by clean catch procedure / Unknown 08/29/2023 9:00 AM EDT 08/29/2023 12:32 PM EDT Narrative Organism Antibiotic Method Susceptibility Klebsiella pneumoniae CRE Amoxicillin + Clavulanate BAUDILIO >16/8 ug/ml: Resistant Klebsiella pneumoniae CRE Ampicillin BAUDILIO >16 ug/ml: Resistant Klebsiella pneumoniae CRE Ampicillin + Sulbactam BAUDILIO >16/8 ug/ml: Resistant Klebsiella pneumoniae CRE Cefazolin (Urine) BAUDILIO Resistant Klebsiella pneumoniae CRE Cefepime BAUDILIO 16 ug/ml: Resistant Klebsiella pneumoniae CRE Ceftriaxone BAUDILIO >32 ug/ml: Resistant Klebsiella pneumoniae CRE Cefuroxime BAUDILIO >16 ug/ml: Resistant Klebsiella pneumoniae CRE Ciprofloxacin BAUDILIO >2 ug/ml: Resistant Klebsiella pneumoniae CRE Ertapenem BAUDILIO >2 ug/ml: Resistant Klebsiella pneumoniae CRE ESBL Screen BAUDILIO Positive Klebsiella pneumoniae CRE Gentamicin BAUDILIO <=2 ug/ml: Susceptible Klebsiella pneumoniae CRE Meropenem BAUDILIO >8 ug/ml: Resistant Klebsiella pneumoniae CRE Minocycline BAUDILIO 4 ug/ml: Susceptible Klebsiella pneumoniae CRE Nitrofurantoin BAUDILIO >64 ug/ml: Resistant Klebsiella pneumoniae CRE Piperacillin + Tazobactam BAUDILIO >64/4 ug/ml: Resistant Klebsiella pneumoniae CRE Tobramycin BAUDILIO >8 ug/ml: Resistant Klebsiella pneumoniae CRE Trimethoprim + Sulfamethoxazole BAUDILIO 1/19 ug/ml: Susceptible Comment:If piperacillin-tazo bactam BAUDILIO value is >16/4 ug/ml alternative therapy is recommended. us Rohan Shin MD LAB MICROBIOLOGY - GENERAL ORDERABLES Final Result [facility] ([facility]) [address] [place] [address] * (ABNORMAL) Urinalysis (08/29/2023 9:00 AM EDT) Color, Urine Red(A) Yellow 08/29/2023 1:09 PM EDT [facility] ([facility]) Clarity, Urine Turbid(A) Clear 08/29/2023 1:09 PM EDT [facility] ([facility]) pH, Urine 5.0 5.0 - 8.0 pH 08/29/2023 1:09 PM EDT [facility] ([facility]) Leukocytes, Urine Moderate(A) Negative 08/29/2023 1:09 PM EDT [facility] ([facility]) Nitrite, Urine Negative Negative 08/29/2023 1:09 PM EDT [facility] ([facility]) Protein, Urine >=500(A) Negative mg/dL 08/29/2023 1:09 PM EDT [facility] ([facility]) Glucose, Urine Negative Negative mg/dL 08/29/2023 1:09 PM EDT [facility] ([facility]) Bilirubin, Urine Negative Negative 08/29/2023 1:09 PM EDT [facility] ([facility]) Specific [place], Urine 1.026(H) 1.015 - 1.020 08/29/2023 1:09 PM EDT [facility] ([facility]) Ketones, Urine Trace(A) Negative mg/dL 08/29/2023 1:09 PM EDT [facility] ([facility]) Blood, Urine Large(A) Negative 08/29/2023 1:09 PM EDT [facility] ([facility]) Urobilinogen, Urine 2.0(A) Negative EU/dL 08/29/2023 1:09 PM EDT [facility] ([facility]) Urine Urine specimen obtained by clean catch procedure / Unknown 08/29/2023 9:00 AM EDT 08/29/2023 12:32 PM EDT us Rohan Shin MD LAB URINE ORDERABLES Final Result [facility] ([facility]) [address] [place], [place] [id number] documented in this encounter Visit Diagnoses Not on filedocumented in this encounter Additional Health Concerns Infection Onset Date Last Indicated Resolved Time CRE 08/29/2023 08/29/2023 documented as of this encounter Care Teams Research Home Economist Relationship Specialty Start Date End Date Tejas Bryant MD [address] [place] [address] PCP - General Family Medicine 12/29/23 documented as of this encounter
--- OUTSIDE RECORDS SUMMARY | 2024-12-30 15:17 | XMS_ITS | Encounter Summary ---
Author Organization [facility] Address [address] [place] [address] Care Team Providers Care Weigh Machine Operator Name Role Phone Tejas Bryant MD Unavailable Tejas Bryant MD Primary Care Provider [phone] Encounter Details Date Type Department Care Team (Late Contact Info) Description 12/08/2023 Clinisync Result Encounter [facility] External Department Unsolicited Provider, Generic External Data Social History Tobacco Use Types Packs/Day Years Used Date Smoking Tobacco: Former Cigars Passive Smoke Exposure: Never Smokeless Tobacco: Current Alcohol Use Standard Drinks/Week Comments Not Currently 0 (1 standard drink = 0.6 oz pure alcohol) caffeine yes type: chocolate, coffee Sex and Gender Information Value Date Recorded Sex Assigned at Not on file Legal Sex Male 7:14 PM EDT Gender Identity Not on file Sexual Orientation Not on file documented as of this encounter Plan of Treatment Upcoming Encounters Date Type Department Care Team (Late Contact Info) Description 01/20/2025 3:30 PM EDT Office Visit [facility] [address] [facility] [address] [place] [address] Rohan Chapman DPM [address] [facility] [address] [place] [address] 02/01/2025 1:00 PM EDT Office Visit [facility] [address] [place] [address] Tejas Bryant MD [address] [place] [address] documented as of this encounter Procedures Procedure Name Priority Date/Time Associated Diagnosis Comments RT PULMONARY FUNCTION TEST 12/08/2023 1:27 PM EDT documented in this encounter Results * RT PULMONARY FUNCTION TEST (12/08/2023 1:27 PM EDT) Anatomical Region Laterality Modality Other 12/08/2023 1:27 PM EDT Narrative 12/10/2023 1:09 PM EDT [address] [address] Respiratory Report Signed Patient: ARJUN DIEGO Jr. MR#: [id number] : 1950 Acct:[id number] Age/Sex: 72 / M ADM Date: 12/08/23 Loc: CARD Attending Dr: CHIQUIS VALE Ordering Physician: CHIQUIS VALE Date of Service: 12/08/23 Procedure(s): RT pulmonary function test Accession Number(s): [id number] cc: [facility] Test Date: 2023-12-08 Pat Name: ARJUN DIEGO Department: Room: - Gender: Male Marine Consultant: Jessica Sofia RRT : 1950 Requested By: 656 Order Number: [id number] Britt MD: Alfonso Kilgore Interpretive Statements Pulmonary function testing was completed according to ATS criteria. Findings were considered accurate and reproducible, with exception of DLCO which did not meet ATS standards. Both pre- and post-bronchodilator values utilized for spirometry. Spirometry (based on pre-bronchodilator values): -FEV1/FVC: Normal @ 74% -FEV1: Normal @ 83% -FVC: Normal @ 86% -CVF97-44%: Reduced @ 74% -There is no significant bronchodilator response. Lung volumes by plethysmography: -RV: Increased @ 138% -TLC: Normal @ 98% Diffusion capacity: -DLCO: Moderate reduction @ 59% when corrected for Hb 10.2g/dL Flow-volume loop: -Abnormal spike in the expiratory limb suggestive of a glottic maneuver (e.g. cough) Impressions: -Spirometry technically normal, though FEV1/FVC ratio is trending towards obstruction. No bronchodilator response. An elevated RV suggests air trapping. There is a moderately reduced diffusion capacity, though it may be artificially decreased as patient did not met ATS criteria, and/or if he smoked prior to the testing. Overall study may suggest underlying COPD/emphysema. Clinical correlation required. Electronically Signed On 12-10-2023 13:09:26 EDT by Alfonso Kilgore Dictated By: Alfonso Kilgore D.O. Signed By: 12/10/23 1309 12/10/23 1309 DD/ 1327 TD/TT: Retoucher Photoengraving: Procedure Note Radiology, Radiologist, - 12/10/2023 [place] [address] Respiratory Report Signed Patient: ARJUN DIEGO Jr.MR#: [id number] : 1950cct:[id number] Age/Sex: 72 / MADM Date: 12/08/23 Loc: CARD Attending Dr: CHIQUIS VALE Ordering Physician: CHIQUIS VALE Date of Service: 12/08/23 Procedure(s): RT pulmonary function test Accession Number(s): [id number] cc: [facility] Test Date: 2023-12-08 Pat Name: ARJUN DIEGO Department: Room: - Gender: Male Marine Consultant: Jessica Sofia RRT : 1950 Requested By: 656 Order Number: [id number] Reading MD: Alfonso Kilgore Interpretive Statements Pulmonary function testing was completed according to ATS criteria.Findings were considered accurate and reproducible, with exception of DLCO whichdid not meet ATS standards. Both pre- and post-bronchodilator values utilized for spirometry. Spirometry (based on pre-bronchodilator values): -FEV1/FVC: Normal @ 74% -FEV1: Normal @ 83% -FVC: Normal @ 86% -XLF89-22%: Reduced @ 74% -There is no significant bronchodilator response. Lung volumes by plethysmography: -RV: Increased @ 138% -TLC: Normal @ 98% Diffusion capacity: -DLCO: Moderate reduction @ 59% when corrected for Hb 10.2g/dL Flow-volume loop: -Abnormal spike in the expiratory limb suggestive of a glottic maneuver(e.g. cough) Impressions: -Spirometry technically normal, though FEV1/FVC ratio is trending towards obstruction. No bronchodilator response. An elevated RV suggests air trapping. There is a moderately reduced diffusion capacity, though it maybe artificially decreased as patient did not met ATS criteria, and/or if he smoked prior to the testing. Overall study may suggest underlying COPD/emphysema. Clinical correlation required. Electronically Signed On 12-10-2023 13:09:26 EDT by Alfonso Kilgore Dictated By: Alfonso Kilgore D.O. Signed By:12/10/23 1309 12/10/23 1309 DD/ 1327 TD/TT: Retoucher Photoengraving: us Generic External Data Provider [facility] Final Result documented in this encounter Visit Diagnoses Not on filedocumented in this encounter Care Teams Weigh Machine Operator Relationship Specialty Start Date End Date Tejas Bryant MD [address] [place] [address] PCP - Devoted 05/26/23 05/25/24 Tejas Bryant MD [address] [place] [address] PCP - General Family Medicine 08/14/23 documented as of this encounter
--- OUTSIDE RECORDS SUMMARY | 2024-12-30 15:17 | XMS_ITS | Encounter Summary ---
Author Organization [facility] Address [address] [place] [address] Care Team Providers Care Dump Truck Operator Name Role Phone Tejas Bryant MD Primary Care Provider [phone] Encounter Details Date Type Department Care Team (Late st Contact Info) Description 08/30/2023 Lab Requisition [facility] [address] [place] [phone] Rohan Shin MD [address] [place], [place] [id number] Social History Tobacco Use Types Packs/Day Years Used Date Smoking Tobacco: Never Assessed [place] Safety & Environment Answer Date Rec orded [...] Procedure Name Priority Date/Time Associated Diagnosis Comments CBC Routine 08/31/2023 4:00 AM EDT BASIC METABOLIC PANEL Routine 08/31/2023 4:00 AM EDT documented in this encounter Results * (ABNORMAL) Basic metabolic panel (08/31/2023 4:00 AM EDT) Sodium 137 136 - 145 mmol/L 08/31/2023 6:01 AM [facility] ([facility]) Potassium 3.7 3.5 - 5.1 mmol/L 08/31/2023 6:01 AM [facility] ([facility]) Chloride 100 98 - 107 mmol/L 08/31/2023 6:01 AM [facility] ([facility]) CO2 28 21 - 31 mmol/L 08/31/2023 6:01 AM [facility] ([facility]) BUN 84(H) 7 - 25 mg/dL 08/31/2023 6:01 AM [facility] ([facility]) Creatinine 4.88(H) 0.70 - 1.30 mg/dL 08/31/2023 6:01 AM [facility] ([facility]) Glucose 197(H) 70 - 100 mg/dL 08/31/2023 6:01 AM [facility] ([facility]) Calcium 8.3(L) 8.6 - 10.3 mg/dL 08/31/2023 6:01 AM [facility] ([facility]) Anion Gap 13 7 - 20 mmol/L 08/31/2023 6:01 AM [facility] ([facility]) eGFR 12.0(L) >60.0 mL/min/1. 73m*2 08/31/2023 6:01 AM [facility] ([facility]) Comment:The [facility] s estimated glomerular filtration rate (eGFR) will no longer include consideration of race in its calculation. The National [employer] s eGFR Task Force developed new recommendations for [...] disproportionately affect any one group of individuals. BUN/Creatinine Ratio 17.2 04/11/2023 6:01 AM [facility] ([facility]) Blood Venous blood specimen / Unknown Venipuncture / Unknown 08/31/2023 4:00 AM EDT 08/31/2023 5:35 AM EDT us Rohan Shin MD LAB BLOOD ORDERABLES Final Result [facility] ([facility]) [place] [address] * (ABNORMAL) CBC (08/31/2023 4:00 AM EDT) Auto WBC 11.34(H) 4.00 - 10.60 10*3/uL 08/31/2023 5:48 AM EDT [facility] ([facility]) RBC 3.23(L) 4.20 - 5.70 10*6/uL 08/31/2023 5:48 AM EDT [facility] ([facility]) Hemoglobin 9.3(L) 13.0 - 17.0 g/dL 08/31/2023 5:48 AM EDT [facility] ([facility]) Hematocrit 29.0(L) 39.0 - 55.0 % 08/31/2023 5:48 AM EDT [facility] ([facility]) MCV 89.8 82.0 - 98.0 fL 08/31/2023 5:48 AM EDT [facility] ([facility]) MCH 28.8 27.0 - 33.0 pg 08/31/2023 5:48 AM EDT [facility] ([facility]) MCHC 32.1 32.0 - 35.0 g/dL 08/31/2023 5:48 AM EDT [facility] ([facility]) RDW 16.2(H) 11.5 - 15.0 % 08/31/2023 5:48 AM EDT [facility] ([facility]) Platelets 671(H) 150 - 400 10*3/uL 08/31/2023 5:48 AM EDT [facility] ([facility]) Blood Venous blood specimen / Unknown Venipuncture / Unknown 08/31/2023 4:00 AM EDT 08/31/2023 5:35 AM EDT us Rohan Shin MD LAB BLOOD ORDERABLES Final Result [facility] [address] [place], [place] [id number] documented in this encounter Visit Diagnoses Not on filedocumented in this encounter Additional Health Concerns Infection Onset Date Last Indicated Resolved Time CRE 08/29/2023 08/29/2023 documented as of this encounter Care Teams Dump Truck Operator Relationship Specialty Start Date End Date Tejas Bryant MD [address] [place] [address] PCP - General Family Medicine 12/29/23 documented as of this encounter
--- OUTSIDE RECORDS SUMMARY | 2024-12-30 15:17 | XMS_ITS | Encounter Summary ---
Author Organization [facility] Address [address] [address] Care Team Providers Care Horologist Apprentice Name Role Phone Tejas Bryant MD Primary Care Provider [phone] Encounter Details Date Type Department Care Team (Late st Contact Info) Description 09/09/2023 Lab Requisition [facility] Lab [address] [place] [phone] Rohan Shin MD [address] [place], [place] [id number] Social History Tobacco Use Types Packs/Day Years Used Date Smoking Tobacco: Never Assessed [place] Safety & Environment Answer Date Rec orded [...] on file documented as of this encounter Visit Diagnoses Not on filedocumented in this encounter Additional Health Concerns Infection Onset Date Last Indicated Resolved Time CRE 08/29/2023 08/29/2023 documented as of this encounter Care Teams Horologist Apprentice Relationship Specialty Start Date End Date Tejas Bryant MD [address] [facility] [place] [address] PCP - General Family Medicine 12/29/23 documented as of this encounter
--- OUTSIDE RECORDS SUMMARY | 2024-12-30 15:17 | XMS_ITS | Encounter Summary ---
Author Organization [facility] Address [address] [place] [address] Care Team Providers Care Consulting Property Manager Name Role Phone Tejas Bryant MD Unavailable Tejas Bryant MD Primary Care Provider [phone] Encounter Details Date Type Department Care Team (Late Contact Info) Description 01/07/2024 Orders Only [facility] [address] [place] [address] Tejas Bryant MD [address] [place] [address] Social History Tobacco Use Types Packs/Day Years [...] 01/20/2025 3:30 PM EDT Office Visit [facility] [address] [facility] [address] [place] [address] Rohan Chapman DPM [address] [facility] 5 [place] [address] 02/01/2025 1:00 PM EDT Office Visit [facility] [address] [place] [phone] Tejas Bryant MD [address] [place] [address] documented as of this encounter Procedures Procedure Name Priority Date/Time Associated Diagnosis Comments C-PAP TITRATION SLEEP STUDY Routine 01/07/2024 2:24 PM EDT documented in this encounter Results * C-PAP TITRATION SLEEP STUDY (01/07/2024 2:24 PM EDT) Anatomical Region Laterality Modality Radiographic Radha ging Tejas Bryant MD IMG XR PROCEDURES Final Result documented in this encounter Visit Diagnoses Not on filedocumented in this encounter Care Teams Consulting Property Manager Relationship Specialty Start Date End Date Tejas Bryant MD [address] [place] [address] PCP - Devoted 05/26/23 05/25/24 Tejas Bryant MD [address] [place] [address] PCP - General Family Medicine 08/14/23 documented as of this encounter
--- OUTSIDE RECORDS SUMMARY | 2024-12-30 15:17 | XMS_ITS | Encounter Summary ---
Author Organization [facility] Address [address] [place] [address] Care Team Providers Care Clay Carman Name Role Phone Tejas Bryant MD Primary Care Provider [phone] Encounter Details Date Type Department Care Team (Late st Contact Info) Description 09/08/2023 Lab Requisition [facility] Lab [address] [place] [phone] Rohan Shin MD [address] [place], [place] [id number] Social History Tobacco Use Types Packs/Day Years Used Date Smoking Tobacco: Never Assessed [place] Safety & Environment Answer Date Rec orded [...] Procedure Name Priority Date/Time Associated Diagnosis Comments PROCALCITONIN TEST Routine 09/09/2023 4: 30 AM EDT CBC WITH AUTO DIFFERENTIAL Routine 09/09/2023 4:30 AM EDT CBC AND DIFFERENTIAL Routine 09/09/2023 4:30 AM EDT documented in this encounter Results * (ABNORMAL) CBC auto differential (09/09/2023 4:30 AM EDT) Auto WBC 13.11(H) 4.00 - 10.60 10*3/uL 09/09/2023 5:06 AM EDT [facility] ([facility]) RBC 3.17(L) 4.20 - 5.70 10*6/uL 09/09/2023 5:06 AM EDT [facility] ([facility]) Hemoglobin 9.4(L) 13.0 - 17.0 g/dL 09/09/2023 5:06 AM T [facility] ([facility]) Hematocrit 27.3(L) 39.0 - 55.0 % 09/09/2023 5:06 AM T [facility] ([facility]) MCV 86.1 82.0 - 98.0 fL 09/09/2023 5:06 AM [facility] ([facility]) MCH 29.7 27.0 - 33.0 pg 09/09/2023 5:06 AM [facility] ([facility]) MCHC 34.4 32.0 - 35.0 g/dL 09/09/2023 5:06 AM [facility] ([facility]) RDW 15.6(H) 11.5 - 15.0 % 09/09/2023 5:06 AM [facility] ([facility]) Neutrophils % 70.2 40.0 - 72.0 % 09/09/2023 5:06 AM [facility] ([facility]) Lymphocytes % 15.9(L) 20.0 - 45.0 % 09/09/2023 5:06 AM [facility] ([facility]) Monocytes % 9.5 5.0 - 12.0 % 09/09/2023 5:06 AM T [facility] ([facility]) Eosinophils % 3.1 0.0 - 6.0 % 09/09/2023 5:06 AM T [facility] ([facility]) Basophils % 0.8 0.0 - 1.0 % 09/09/2023 5:06 AM T [facility] ([facility]) Neutrophils Absolute 9.20(H) 1.60 - 7.60 10*3/uL 09/09/2023 5:06 AM EDT [facility] ([facility]) Lymphocytes Absolute 2.09 1.20 - 4.00 10*3/uL 09/09/2023 5:06 AM EDT [facility] ([facility]) Monocytes Absolute 1.24(H) 0.10 - 1.00 10*3/uL 09/09/2023 5:06 AM EDT [facility] ([facility]) Eosinophils Absolute 0.41 0.00 - 0.50 10*3/uL 09/09/2023 5:06 AM EDT [facility] ([facility]) Basophils Absolute 0.11 0.00 - 0.20 10*3/uL 09/09/2023 5:06 AM EDT [facility] ([facility]) Platelets 520(H) 150 - 400 10*3/uL 09/09/2023 5:06 AM EDT [facility] ([facility]) nRBC % 0.0 0 % 09/09/2023 5:06 AM EDT [facility] ([facility]) Immature Granulocytes % 0.5 0.0 - 1.0 % 09/09/2023 5:06 AM EDT [facility] ([facility]) Immature Granulocytes Absolute 0.06 0.00 - 0.20 10*3/uL 09/09/2023 5:06 AM EDT [facility] ([facility]) Blood Venous blood specimen / Unknown 09/09/2023 4:30 AM EDT 09/09/2023 4:54 AM EDT us Rohan Shin MD LAB BLOOD ORDERABLES Final Result [facility] ([facility]) [address] [place] [address] * (ABNORMAL) Procalcitonin Test (09/09/2023 4:30 AM EDT) Procalcitonin 0.14(H) 0.00 - 0.10 ng/mL 09/09/2023 6:01 AM EDT [facility] ([facility]) Comment: Suspected Lower Respiratory Tract Infection: 0.1-0.25 ng/mL - [...] hours if clinically indicated and initial PCT<0.5ng/mL Blood Venous blood specimen / Unknown 09/09/2023 4:30 AM EDT 09/09/2023 4:54 AM EDT us Rohan Shin MD LAB BLOOD ORDERABLES Final Result [facility] ([facility]) [address] [place], [place] [id number] documented in this encounter Visit Diagnoses Not on filedocumented in this encounter Additional Health Concerns Infection Onset Date Last Indicated Resolved Time CRE 08/29/2023 08/29/2023 documented as of this encounter Care Teams Clay Carman Relationship Specialty Start Date End Date Tejas Bryant MD [address] [place] [address] PCP - General Family Medicine 12/29/23 documented as of this encounter
--- OUTSIDE RECORDS SUMMARY | 2024-12-30 15:17 | XMS_ITS | Encounter Summary ---
Author Organization [facility] Address [address] [place] [address] Care Team Providers Care Corporate Receptionist Name Role Phone Tejas Bryant MD Primary Care Provider [phone] Encounter Details Date Type Department Care Team (Late st Contact Info) Description 08/31/2023 Lab Requisition [facility] Lab [address] [place] [phone] Rohan Shin MD [address] [place], [place] [id number] Social History Tobacco Use Types Packs/Day Years Used Date Smoking Tobacco: Never Assessed [place] Safety & Environment Answer Date Rec orded [...] Date/Time Associated Diagnosis Comments PROCALCITONIN TEST Routine 09/01/2023 3: 05 AM EDT CBC Routine 09/01/2023 3:05 AM EDT PHOSPHORUS Routine 09/01/2023 3:05 AM EDT MAGNESIUM Routine 09/01/2023 3:05 AM EDT VANCOMYCIN, RANDOM Routine 09/01/2023 3: 05 AM EDT BASIC METABOLIC PANEL Routine 09/01/2023 3:05 AM EDT documented in this encounter Results * (ABNORMAL) Procalcitonin Test (09/01/2023 3:05 AM EDT) Procalcitonin 7.44(HH) 0.00 - 0.10 ng/mL 09/01/2023 12:14 PM EDT [facility] ([facility]) Comment: Suspected Lower Respiratory Tract Infection: 0.1-0.25 [...] PCT<0.5ng/mL Blood Venous blood specimen / Unknown Venipuncture / Unknown 09/01/2023 3:05 AM EDT 09/01/2023 4:10 AM EDT Rohan Shin MD LAB BLOOD ORDERABLES Final Result [facility] ([facility]) [address] [place] [address] * (ABNORMAL) CBC (09/01/2023 3:05 AM EDT) Auto WBC 12.12(H) 4.00 - 10.60 10*3/uL 09/01/2023 4:25 AM EDT [facility] ([facility]) RBC 3.23(L) 4.20 - 5.70 10*6/uL 09/01/2023 4:25 AM EDT [facility] ([facility]) Hemoglobin 9.4(L) 13.0 - 17.0 g/dL 09/01/2023 4:25 AM EDT [facility] ([facility]) Hematocrit 28.7(L) 39.0 - 55.0 % 09/01/2023 4:25 AM EDT [facility] ([facility]) MCV 88.9 82.0 - 98.0 fL 09/01/2023 4:25 AM EDT [facility] ([facility]) MCH 29.1 27.0 - 33.0 pg 09/01/2023 4:25 AM EDT [facility] ([facility]) MCHC 32.8 32.0 - 35.0 g/dL 09/01/2023 4:25 AM EDT [facility] ([facility]) RDW 15.9(H) 11.5 - 15.0 % 09/01/2023 4:25 AM EDT [facility] ([facility]) Platelets 590(H) 150 - 400 10*3/uL 09/01/2023 4:25 AM EDT [facility] ([facility]) Blood Venous blood specimen / Unknown Venipuncture / Unknown 09/01/2023 3:05 AM EDT 09/01/2023 4:10 AM EDT us Rohan Shin MD LAB BLOOD ORDERABLES Final Result [facility]) [address] [place] [address] * Phosphorus (09/01/2023 3:05 AM EDT) Phosphorus 2.5 2.5 - 5.0 mg/dL 09/01/2023 4:47 AM EDT [facility] ([facility]) Blood Venous blood specimen / Unknown Venipuncture / Unknown 09/01/2023 3:05 AM EDT 09/01/2023 4:10 AM EDT Rohan Shin MD LAB BLOOD ORDERABLES Final Result [facility]) [address] [place] [address] * Magnesium (09/01/2023 3:05 AM EDT) Magnesium 2.7 1.9 - 2.7 mg/dL 09/01/2023 4:47 AM EDT [facility]) Blood Venous blood specimen / Unknown Venipuncture / Unknown 09/01/2023 3:05 AM EDT 09/01/2023 4:10 AM EDT Rohan Shin MD LAB BLOOD ORDERABLES Final Result Performing Organization Address City/[facility]/ZIP Co de Phone Number [facility]) [address] [place] [address] * (ABNORMAL) Basic metabolic panel (09/01/2023 3:05 AM EDT) Sodium 140 136 - 145 mmol/L 09/01/2023 4:47 AM EDT [facility]) Potassium 3.6 3.5 - 5.1 mmol/L 09/01/2023 4:47 AM EDT [facility] ([facility]) Chloride 102 98 - 107 mmol/L 09/01/2023 4:47 AM EDT [facility] ([facility]) CO2 25 21 - 31 mmol/L 09/01/2023 4:47 AM EDT [facility] ([facility]) BUN 106(H) 7 - 25 mg/dL 09/01/2023 4:47 AM EDT [facility] ([facility]) Creatinine 4.80(H) 0.70 - 1.30 mg/dL 09/01/2023 4:47 AM EDT [facility] ([facility]) Glucose 157(H) 70 - 100 mg/dL 09/01/2023 4:47 AM EDT [facility] ([facility]) Calcium 8.3(L) 8.6 - 10.3 mg/dL 09/01/2023 4:47 AM EDT [facility] ([facility]) Anion Gap 17 7 - 20 mmol/L 09/01/2023 4:47 AM EDT [facility] ([facility]) eGFR 12.2(L) >60.0 mL/min/1. 73m*2 09/01/2023 4:47 AM EDT [facility] ([facility]) Comment:[facility] s estimated glomerular filtration rate (eGFR) will [...] any one group of individuals. BUN/Creatinine Ratio 22.1 12/2023 4:47 AM EDT [facility] ([facility]) Blood Venous blood specimen / Unknown Venipuncture / Unknown 09/01/2023 3:05 AM EDT 09/01/2023 4:10 AM EDT us Rohan Shin MD LAB BLOOD ORDERABLES Final Result [facility] ([facility]) [address] [place] [address] * (ABNORMAL) Vancomycin, random (09/01/2023 3:05 AM EDT) Vancomycin Rm 14.1(L) 20.0 - 40.0 ug/mL 09/01/2023 4:47 AM EDT [facility] ([facility]) Blood Venous blood specimen / Unknown Venipuncture / Unknown 09/01/2023 3:05 AM EDT 09/01/2023 4:10 AM EDT us Rohan Shin MD LAB BLOOD ORDERABLES Final Result [facility] ([facility]) [address] [place] [address] documented in this encounter Visit Diagnoses Not on filedocumented in this encounter Additional Health Concerns Infection Onset Date Last Indicated Resolved Time CRE 08/29/2023 08/29/2023 documented as of this encounter Care Teams Corporate Receptionist Relationship Specialty Start Date End Date Tejas Bryant MD [facility] [place] [address] PCP - General Family Medicine 12/29/23 documented as of this encounter
--- OUTSIDE RECORDS SUMMARY | 2024-12-30 15:17 | XMS_ITS | Encounter Summary ---
Author Organization [facility] Address [address] [place] [address] Care Team Providers Care Licensing Engineer Name Role Phone Tejas Bryant MD Unavailable Tejas Bryant MD Primary Care Provider [phone] Encounter Details Date Type Department Care Team (Late Contact Info) Description 01/16/2024 Clinisync Result Encounter [facility] External Department Unsolicited Provider, Generic External Data Social History Tobacco Use Types Packs/Day Years Used Date Smoking Tobacco: Former Cigars Passive Smoke Exposure: Never Smokeless Tobacco: Current Alcohol Use Standard Drinks/Week Comments Not Currently 0 (1 standard drink = 0.6 oz pure alcohol) caffeine yes type: chocolate, coffee PHQ-2 Answer Date Recorded Patient Health Questionnaire-2 Score 1 01/13/2024 Sex and Gender Information Value Date Recorded Sex Assigned at Not on file Legal Sex Male 7:14 PM EDT Gender Identity Not on file Sexual Orientation Not on file documented as of this encounter Plan of Treatment Upcoming Encounters Date Type Department Care Team (Late Contact Info) Description 01/20/2025 3:30 PM EDT Office Visit [facility] [address] [facility] [address] [place] [phone] Rohan Chapman [facility] [address] [facility] [address] [place] [address] 02/01/2025 1:00 PM EDT Office Visit [facility] [address] [place] [address] Tejas Bryant MD [address] [place] [address] documented as of this encounter Procedures Procedure Name Priority Date/Time Associated Diagnosis Comments NM YESSICA PERF SPECT REST STR 01/16/2024 2:38 PM EDT documented in this encounter Results * NM YESSICA PERF SPECT REST STR (01/16/2024 2:38 PM EDT) Anatomical Region Laterality Modality Other 01/16/2024 2:38 PM EDT Narrative 01/16/2024 2:38 [place] [address] Nuclear Medicine Report Signed Patient: ARJUN DIEGO Jr. MR#: [id number] : 1950 Acct:[id number] Age/Sex: 73 / M ADM Date: 01/16/24 Loc: NM Attending Dr: Ronel Aquino M.D. Ordering Physician: Ronel Aquino M.D. Date of Service: 01/16/24 Procedure(s): NM yessica perf SPECT rest str Accession Number(s): [id number] cc: Ronel Aquino M.D.; Tejas Bryant M.D. Patient Name: ARJUN DIEGO MR#: [id number] : 1950 Exam Date: 01/16/2024 Ordering Doctor: DR Ronel Aquino M.D. RADIOLOGY REPORT PROCEDURE: NM YESSICA PERF SPECT REST STR COMPARISON: None. INDICATIONS: Peripheral vascular disease, Coronary atherosclerosis TECHNIQUE: Exam Description: Stress/Rest one day protocol gated SPECT Rest Imagin.2 mCi Tc-99m Cardiolite IV on 01/16/2024 Stress Imaging 30.2 mCi Tc-99m Cardiolite IV on 01/16/2024 Exercise Protocol: 0.4 mg Lexiscan given IV Heart Rate (bpm): Rest: 58 Max: 69 PMHR: 46 Blood Pressure: Rest: 177/82 Max: 177/82 Symptoms: Rest and peak stress ECG findings were normal and the exercise portion of the study was normal per attending physician Dr. Blackman . For more details please see separate cardiac stress test report. FINDINGS: QUALITY OF STUDY: Good. PERFUSION DEFECT: LOCATION: Basal inferior. Mid-inferior. Apical inferior. SIZE: Medium (3-4 segments). SEVERITY: Moderate. TYPE: Persistent. WALL MOTION: Mild hypokinesis: LV SIZE: Enlarged; EDV 140 mL. TID / TCD: None; 1.1 LVEF: Abnormal. Calculated EF 55%. SUMMARY: Myocardial perfusion imaging study has ABNORMAL findings. CONCLUSION: 1. Moderate-sized moderate severity defect in the inferior wall, RCA distribution 2. No reversible ischemia 3. Dilated left ventricle, EDV 140 milliliters 4. Borderline low left ventricular ejection fraction of 55% 5. Normal exercise test Dictated by: Fab Lindo MD on 01/16/2024 at 14:36 Approved by: Fab Lindo MD on 01/16/2024 at 14:38 Dictated By: Fab Lindo M.D. Signed By: 01/16/24 1438 DD/ 37 TD/TT: Correctional Officer Chief: Procedure Note Radiology, Radiologist, - 01/16/2024 [place] [address] Nuclear Medicine Report Signed Patient: ARJUN DIEGO Jr.MR#: [id number] : 1950cct:[id number] Age/Sex: 73 / MADM Date: 01/16/24 Loc: NM Attending Dr: Ronel Aquino M.D. Ordering Physician: Ronel Aquino M.D. Date of Service: 01/16/24 Procedure(s): NM yessica perf SPECT rest str Accession Number(s): [id number] cc: Ronel Aquino M.D.; Tejas Bryant M.D. Patient Name: ARJUN DIEGO MR#: [id number] : 1950 Exam Date: 01/16/2024 Ordering Doctor: DR Ronel Aquino M.D. RADIOLOGY REPORT PROCEDURE: NM YESSICA PERF SPECT REST STR COMPARISON: None. INDICATIONS: Peripheral vascular disease, Coronary atherosclerosis TECHNIQUE: Exam Description: Stress/Rest one day protocol gated SPECT Rest Imagin.2 mCi Tc-99m Cardiolite IV on 01/16/2024 Stress Imaging 30.2 mCi Tc-99m Cardiolite IV on 01/16/2024 Exercise Protocol: 0.4 mg Lexiscan given IV Heart Rate (bpm): Rest: 58 Max: 69 PMHR: 46 Blood Pressure: Rest: 177/82 Max: 177/82 Symptoms: Rest and peak stress ECG findings were normal and the exercise portion ofthe study was normal per attending physician Dr. Blackman . For more details please see separate cardiac stress test report. FINDINGS: QUALITY OF STUDY: Good. PERFUSION DEFECT: LOCATION: Basal inferior. Mid-inferior. Apical inferior. SIZE: Medium (3-4 segments). SEVERITY: Moderate. TYPE: Persistent. WALL MOTION: Mild hypokinesis: LV SIZE: Enlarged; EDV 140 mL. TID / TCD: None; 1.1 LVEF: Abnormal. Calculated EF 55%. SUMMARY: Myocardial perfusion imaging study has ABNORMAL findings. CONCLUSION: 1. Moderate-sized moderate severity defect in the inferior wall, RCA distribution 2. No reversible ischemia 3. Dilated left ventricle, EDV 140 milliliters 4. Borderline low left ventricular ejection fraction of 55% 5. Normal exercise test Dictated by: Fab Lindo MD on 01/16/2024 at 14:36 Approved by: Fab Lindo MD on 01/16/2024 at 14:38 Dictated By: Fab Lindo M.D. Signed By:01/16/24 1438 DD/ TD/TT: Correctional Officer Chief: [employer] External Data Provider [facility] Final Result documented in this encounter Visit Diagnoses Not on filedocumented in this encounter Additional Health Concerns Assessment Noted Time PHQ-9 Depression Total Score: 3 01/13/20 24 1:00 PM EDT documented as of this encounter Care Teams Licensing Engineer Relationship Specialty Start Date End Date Tejas Bryant MD [address] [place] [address] PCP - Devoted 05/26/23 05/25/24 Tejas Bryant MD [address] [place] [address] PCP - General Family Medicine 08/14/23 documented as of this encounter
--- OUTSIDE RECORDS SUMMARY | 2024-12-30 15:17 | XMS_ITS | Encounter Summary ---
Author Organization [facility] Address [address] [place] [address] Care Team Providers Care Engine Hostler Name Role Phone Tejas Bryant MD Primary Care Provider [phone] Encounter Details Date Type Department Care Team (Late st Contact Info) Description 08/31/2023 Lab Requisition [facility] Hospital Lab [address] [place] [phone] Social History Tobacco Use Types Packs/Day Years Used Date Smoking Tobacco: Never Assessed [place] Safety & Environment Answer Date Rec orded [...] documented as of this encounter Care Teams Engine Hostler Relationship Specialty Start Date End Date Tejas Bryant MD [address] [place] [address] PCP - General Family Medicine 12/29/23 documented as of this encounter
--- OUTSIDE RECORDS SUMMARY | 2024-12-30 15:17 | XMS_ITS | Encounter Summary ---
Author Organization [facility] Address [address] [place] [address] Care Team Providers Care Active Directory Engineer Name Role Phone Tejas Bryant MD Primary Care Provider [phone] Encounter Details Date Type Department Care Team (Late st Contact Info) Description 09/04/2023 Lab Requisition [facility] Lab [address] [place] [phone] Rohan Shin MD [address] [place], [place] [id number] Social History Tobacco Use Types Packs/Day Years Used Date Smoking Tobacco: Never Assessed [place] Safety & Environment Answer Date Rec orded [...] Priority Date/Time Associated Diagnosis Comments CBC Routine 09/05/2023 4:45 AM EDT PHOSPHORUS Routine 09/05/2023 4:45 AM EDT MAGNESIUM Routine 09/05/2023 4:45 AM EDT BASIC METABOLIC PANEL Routine 09/05/2023 4:45 AM EDT documented in this encounter Results * (ABNORMAL) CBC (09/05/2023 4:45 AM EDT) Auto WBC 10.65(H) 4.00 - 10.60 10*3/uL 09/05/2023 6:28 AM EDT [facility] ([facility]) RBC 3.41(L) 4.20 - 5.70 10*6/uL 09/05/2023 6:28 AM EDT [facility] ([facility]) Hemoglobin 10.1(L) 13.0 - 17.0 g/dL 09/05/2023 6:28 AM EDT [facility] ([facility]) Hematocrit 29.9(L) 39.0 - 55.0 % 09/05/2023 6:28 AM EDT [facility] ([facility]) MCV 87.7 82.0 - 98.0 fL 09/05/2023 6:28 AM EDT [facility] ([facility]) MCH 29.6 27.0 - 33.0 pg 09/05/2023 6:28 AM EDT [facility] ([facility]) MCHC 33.8 32.0 - 35.0 g/dL 09/05/2023 6:28 AM EDT [facility] ([facility]) RDW 15.9(H) 11.5 - 15.0 % 09/05/2023 6:28 AM EDT [facility] ([facility]) Platelets 511(H) 150 - 400 10*3/uL 09/05/2023 6:28 AM EDT [facility] ([facility]) Blood Venous blood specimen / Unknown 09/05/2023 4:45 AM EDT 09/05/2023 5:58 AM EDT us Rohan Shin MD LAB BLOOD ORDERABLES Final Result [facility] ([facility]) [address] [place] [address] * (ABNORMAL) Phosphorus (09/05/2023 4:45 AM EDT) Pathologist [facility] Phosphorus 5.7(H) 2.5 - 5.0 mg/dL 09/05/2023 6:52 AM EDT [facility] ([facility]) Blood Venous blood specimen / Unknown 09/05/2023 4:45 AM EDT 09/05/2023 5:59 AM EDT Rohan Shin MD LAB BLOOD ORDERABLES Final Result Performing Organization Address [facility]/ZIP Co de Phone Number [facility]) [address] [place] [address] * Magnesium (09/05/2023 4:45 AM EDT) Pathologist [facility] Magnesium 2.4 1.9 - 2.7 mg/dL 09/05/2023 6:52 AM EDT [facility] ([facility]) Blood Venous blood specimen / Unknown 09/05/2023 4:45 AM EDT 09/05/2023 5:59 AM EDT us Rohan Shin MD LAB BLOOD ORDERABLES Final Result Performing Organization Address [facility] de Phone Number [facility]) [address] [place] [phone] * (ABNORMAL) Basic metabolic panel (09/05/2023 4:45 AM EDT) Pathologist [facility] Sodium 134(L) 136 - 145 mmol/L 09/05/2023 6:52 AM EDT [facility] ([facility]) Potassium 3.1(L) 3.5 - 5.1 mmol/L 09/05/2023 6:52 AM EDT [facility] ([facility]) Chloride 99 98 - 107 mmol/L 09/05/2023 6:52 AM EDT [facility] ([facility]) CO2 26 21 - 31 mmol/L 09/05/2023 6:52 AM EDT [facility] ([facility]) BUN 64(H) 7 - 25 mg/dL 09/05/2023 6:52 AM EDT [facility] ([facility]) Creatinine 3.13(H) 0.70 - 1.30 mg/dL 09/05/2023 6:52 AM EDT [facility] ([facility]) Glucose 138(H) 70 - 100 mg/dL 09/05/2023 6:52 AM EDT [facility] ([facility]) Calcium 8.1(L) 8.6 - 10.3 mg/dL 09/05/2023 6:52 AM EDT [facility] ([facility]) Anion Gap 12 7 - 20 mmol/L 09/05/2023 6:52 AM EDT [facility] ([facility]) eGFR 20.5(L) >60.0 mL/min/1. 73m*2 09/05/2023 6:52 AM EDT [facility] ([facility]) Comment:[facility] s estimated glomerular filtration rate (eGFR) [...] any one group of individuals. BUN/Creatinine Ratio 20.4 08/24 6:52 AM EDT [facility] ([facility]) Blood Venous blood specimen / Unknown 09/05/2023 4:45 AM EDT 09/05/2023 5:59 AM EDT us Rohan Shin MD LAB BLOOD ORDERABLES Final Result [facility] ([facility]) [address] [place] [address] documented in this encounter Visit Diagnoses Not on filedocumented in this encounter Additional Health Concerns Infection Onset Date Last Indicated Resolved Time CRE 08/29/2023 08/29/2023 documented as of this encounter Care Teams Active Directory Engineer Relationship Specialty Start Date End Date Tejas Bryant MD [facility] [place] [address] PCP - General Family Medicine 12/29/23 documented as of this encounter
--- OUTSIDE RECORDS SUMMARY | 2024-12-30 15:17 | XMS_ITS | Encounter Summary ---
Author Organization [facility] Address [address] [place] [address] Care Team Providers Care Ict Development Manager Name Role Phone Tejas Bryant MD Primary Care Provider [phone] Encounter Details Date Type Department Care Team (Late st Contact Info) Description 09/02/2023 Lab Requisition [facility] Hospital Lab [address] [place] [phone] Rohan Shin MD [address] [place], [place] [id number] Social History Tobacco Use Types Packs/Day Years Used Date Smoking Tobacco: Never Assessed [place] Safety & Environment Answer Date Rec orded [...] Priority Date/Time Associated Diagnosis Comments CBC Routine 09/03/2023 4:25 AM EDT PHOSPHORUS Routine 09/03/2023 4:25 AM EDT MAGNESIUM Routine 09/03/2023 4:25 AM EDT BASIC METABOLIC PANEL Routine 09/03/2023 4:25 AM EDT documented in this encounter Results * (ABNORMAL) CBC (09/03/2023 4:25 AM EDT) Auto WBC 14.08(H) 4.00 - 10.60 10*3/uL 09/03/2023 5:02 AM EDT [facility] ([facility]) RBC 3.56(L) 4.20 - 5.70 10*6/uL 09/03/2023 5:02 AM EDT [facility] ([facility]) Hemoglobin 10.5(L) 13.0 - 17.0 g/dL 09/03/2023 5:02 AM EDT [facility] ([facility]) Hematocrit 31.6(L) 39.0 - 55.0 % 09/03/2023 5:02 AM EDT [facility] ([facility]) MCV 88.8 82.0 - 98.0 fL 09/03/2023 5:02 AM EDT [facility] ([facility]) MCH 29.5 27.0 - 33.0 pg 09/03/2023 5:02 AM EDT [facility] ([facility]) MCHC 33.2 32.0 - 35.0 g/dL 09/03/2023 5:02 AM EDT [facility] ([facility]) RDW 15.7(H) 11.5 - 15.0 % 09/03/2023 5:02 AM EDT [facility] ([facility]) Platelets 520(H) 150 - 400 10*3/uL 09/03/2023 5:02 AM EDT [facility] ([facility]) Blood Venous blood specimen / Unknown 09/03/2023 4:25 AM EDT 09/03/2023 4:36 AM EDT us Rohan Shin MD LAB BLOOD ORDERABLES Final Result [facility] ([facility]) [address] [place] [address] * Phosphorus (09/03/2023 4:25 AM EDT) Phosphorus 4.3 2.5 - 5.0 mg/dL 09/03/2023 5:39 AM EDT [facility] ([facility]) Blood Venous blood specimen / Unknown 09/03/2023 4:25 AM EDT 09/03/2023 4:36 AM EDT Rohan Shin MD LAB BLOOD ORDERABLES Final Result [facility]) [address] [place] [phone] * Magnesium (09/03/2023 4:25 AM EDT) Pathologist [facility] Magnesium 2.2 1.9 - 2.7 mg/dL 09/03/2023 5:39 AM EDT [facility] ([facility]) Blood Venous blood specimen / Unknown 09/03/2023 4:25 AM EDT 09/03/2023 4:36 AM EDT us Rohan Shin MD LAB BLOOD ORDERABLES Final Result Performing Organization Address City/[facility]/ZIP Co de Phone Number [facility]) [address] [place] [phone] * (ABNORMAL) Basic metabolic panel (09/03/2023 4:25 AM EDT) Sodium 133(L) 136 - 145 mmol/L 09/03/2023 5:39 AM EDT [facility] ([facility]) Potassium 3.5 3.5 - 5.1 mmol/L 09/03/2023 5:39 AM EDT [facility] ([facility]) Chloride 99 98 - 107 mmol/L 09/03/2023 5:39 AM EDT [facility] ([facility]) CO2 26 21 - 31 mmol/L 09/03/2023 5:39 AM EDT [facility] ([facility]) BUN 64(H) 7 - 25 mg/dL 09/03/2023 5:39 AM EDT [facility] ([facility]) Creatinine 3.38(H) 0.70 - 1.30 mg/dL 09/03/2023 5:39 AM EDT [facility] ([facility]) Glucose 139(H) 70 - 100 mg/dL 09/03/2023 5:39 AM EDT [facility] ([facility]) Calcium 8.1(L) 8.6 - 10.3 mg/dL 09/03/2023 5:39 AM EDT [facility] ([facility]) Anion Gap 12 7 - 20 mmol/L 09/03/2023 5:39 AM EDT [facility] ([facility]) eGFR 18.7(L) >60.0 mL/min/1. 73m*2 09/03/2023 5:39 AM EDT [facility] ([facility]) Comment:[facility] s estimated glomerular filtration rate (eGFR) will [...] any one group of individuals. BUN/Creatinine Ratio 18.9 08/24 5:39 AM EDT [facility] ([facility]) Blood Venous blood specimen / Unknown 09/03/2023 4:25 AM EDT 09/03/2023 4:36 AM EDT us Rohan Shin MD LAB BLOOD ORDERABLES Final Result [facility] ([facility]) [address] [place] [address] documented in this encounter Visit Diagnoses Not on filedocumented in this encounter Additional Health Concerns Infection Onset Date Last Indicated Resolved Time CRE 08/29/2023 08/29/2023 documented as of this encounter Care Teams Ict Development Manager Relationship Specialty Start Date End Date Tejas Bryant MD [address] [place] [address] PCP - General Family Medicine 12/29/23 documented as of this encounter
--- OUTSIDE RECORDS SUMMARY | 2024-12-30 15:17 | XMS_ITS | Encounter Summary ---
Author Organization [facility] Address [address] [address] Care Team Providers Care Drywall Sander Name Role Phone Tejas Bryant MD Primary Care Provider [phone] Encounter Details Date Type Department Care Team (Late st Contact Info) Description 09/07/2023 Lab Requisition [facility] Hospital Lab [address] [place] [phone] Rohan Shin MD [address] [place], [place] [id number] Social History Tobacco Use Types Packs/Day Years Used Date Smoking Tobacco: Never Assessed [place] Safety & Environment Answer Date Rec orded [...] Priority Date/Time Associated Diagnosis Comments CBC Routine 09/08/2023 5:30 AM EDT PHOSPHORUS Routine 09/08/2023 5:30 AM EDT MAGNESIUM Routine 09/08/2023 5:30 AM EDT BASIC METABOLIC PANEL Routine 09/08/2023 5:30 AM EDT documented in this encounter Results * (ABNORMAL) CBC (09/08/2023 5:30 AM EDT) Auto WBC 13.88(H) 4.00 - 10.60 10*3/uL 09/08/2023 7:11 AM EDT [facility] ([facility]) RBC 3.36(L) 4.20 - 5.70 10*6/uL 09/08/2023 7:11 AM EDT [facility] ([facility]) Hemoglobin 9.9(L) 13.0 - 17.0 g/dL 09/08/2023 7:11 AM EDT [facility] ([facility]) Hematocrit 29.1(L) 39.0 - 55.0 % 09/08/2023 7:11 AM EDT [facility] ([facility]) MCV 86.6 82.0 - 98.0 fL 09/08/2023 7:11 AM EDT [facility] ([facility]) MCH 29.5 27.0 - 33.0 pg 09/08/2023 7:11 AM EDT [facility] ([facility]) MCHC 34.0 32.0 - 35.0 g/dL 09/08/2023 7:11 AM EDT [facility] ([facility]) RDW 15.7(H) 11.5 - 15.0 % 09/08/2023 7:11 AM EDT [facility] ([facility]) Platelets 524(H) 150 - 400 10*3/uL 09/08/2023 7:11 AM EDT [facility] ([facility]) Blood Venous blood specimen / Unknown Venipuncture / Unknown 09/08/2023 5:30 AM EDT 09/08/2023 6:44 AM EDT us Rohan Shin MD LAB BLOOD ORDERABLES Final Result [facility] ([facility]) [address] [place] [address] * (ABNORMAL) Phosphorus (09/08/2023 5:30 AM EDT) [facility] Phosphorus 6.4(H) 2.5 - 5.0 mg/dL 09/08/2023 9:32 AM EDT [facility] ([facility]) Blood Venous blood specimen / Unknown Venipuncture / Unknown 09/08/2023 5:30 AM EDT 09/08/2023 6:44 AM EDT us Rohan Shin MD LAB BLOOD ORDERABLES Final Result Performing Organization Address City/[facility]/ZIP Co de Phone Number [facility]) [address] [place] [address] * Magnesium (09/08/2023 5:30 AM EDT) [facility] Magnesium 2.4 1.9 - 2.7 mg/dL 09/08/2023 9:32 AM EDT [facility] ([facility]) Blood Venous blood specimen / Unknown Venipuncture / Unknown 09/08/2023 5:30 AM EDT 09/08/2023 6:44 AM EDT us Rohan Shin MD LAB BLOOD ORDERABLES Final Result Performing Organization Address City/[facility] Co de Phone Number [facility]) [address] [place] [phone] * (ABNORMAL) Basic metabolic panel (09/08/2023 5:30 AM EDT) [facility] Sodium 133(L) 136 - 145 mmol/L 09/08/2023 9:32 AM EDT [facility]) Potassium 3.3(L) 3.5 - 5.1 mmol/L 09/08/2023 9:32 AM EDT [facility] ([facility]) Chloride 98 98 - 107 mmol/L 09/08/2023 9:32 AM EDT [facility] ([facility]) CO2 25 21 - 31 mmol/L 09/08/2023 9:32 AM EDT [facility] ([facility]) BUN 89(H) 7 - 25 mg/dL 09/08/2023 9:32 AM EDT [facility] ([facility]) Creatinine 2.14(H) 0.70 - 1.30 mg/dL 09/08/2023 9:32 AM EDT [facility] ([facility]) Glucose 92 70 - 100 mg/dL 09/08/2023 9:32 AM EDT [facility] ([facility]) Calcium 8.2(L) 8.6 - 10.3 mg/dL 09/08/2023 9:32 AM EDT [facility] ([facility]) Anion Gap 13 7 - 20 mmol/L 09/08/2023 9:32 AM EDT [facility] ([facility]) eGFR 32.3(L) >60.0 mL/min/1. 73m*2 09/08/2023 9:32 AM EDT [facility] ([facility]) Comment:[facility] s estimated glomerular filtration rate (eGFR) [...] any one group of individuals. BUN/Creatinine Ratio 41.6 08/24 9:32 AM EDT [facility] ([facility]) Blood Venous blood specimen / Unknown Venipuncture / Unknown 09/08/2023 5:30 AM EDT 09/08/2023 6:44 AM EDT us Rohan Shin MD LAB BLOOD ORDERABLES Final Result [facility] ([facility]) [address] [place] [address] documented in this encounter Visit Diagnoses Not on filedocumented in this encounter Additional Health Concerns Infection Onset Date Last Indicated Resolved Time CRE 08/29/2023 08/29/2023 documented as of this encounter Care Teams Drywall Sander Relationship Specialty Start Date End Date Tejas Bryant MD [address] [place] [address] PCP - General Family Medicine 12/29/23 documented as of this encounter
--- OUTSIDE RECORDS SUMMARY | 2024-12-30 15:18 | XMS_ITS | Encounter Summary ---
Author Organization [facility] Address [address] [place] [address] Care Team Providers Care Svp Chief Marketing Officer Name Role Phone Tejas Bryant MD Primary Care Provider [phone] Encounter Details Date Type Department Care Team (Late st Contact Info) Description 09/16/2023 Lab Requisition [email or web address] Hospital Lab [address] [place] [phone] Rohan Shin MD [address] [place], [place] [id number] Social History Tobacco Use Types Packs/Day Years Used Date Smoking Tobacco: Never Assessed [place] Safety & Environment Answer Date Rec orded [...] Priority Date/Time Associated Diagnosis Comments CBC Routine 09/17/2023 5:08 AM EDT PHOSPHORUS Routine 09/17/2023 5:08 AM EDT MAGNESIUM Routine 09/17/2023 5:08 AM EDT BASIC METABOLIC PANEL Routine 09/17/2023 5:08 AM EDT documented in this encounter Results * (ABNORMAL) CBC (09/17/2023 5:08 AM EDT) Auto WBC 10.60 4.00 - 10.60 10*3/uL 09/17/2023 5:16 AM EDT [facility] ([facility]) RBC 3.47(L) 4.20 - 5.70 10*6/uL 09/17/2023 5:16 AM EDT [facility] ([facility]) Hemoglobin 9.9(L) 13.0 - 17.0 g/dL 09/17/2023 5:16 AM EDT [facility] ([facility]) Hematocrit 31.2(L) 39.0 - 55.0 % 09/17/2023 5:16 AM EDT [facility] ([facility]) MCV 89.9 82.0 - 98.0 fL 09/17/2023 5:16 AM EDT [facility] ([facility]) MCH 28.5 27.0 - 33.0 pg 09/17/2023 5:16 AM EDT [facility] ([facility]) MCHC 31.7(L) 32.0 - 35.0 g/dL 09/17/2023 5:16 AM EDT [facility] ([facility]) RDW 17.1(H) 11.5 - 15.0 % 09/17/2023 5:16 AM EDT [facility] ([facility]) Platelets 667(H) 150 - 400 10*3/uL 09/17/2023 5:16 AM EDT [facility] ([facility]) Blood Venous blood specimen / Unknown Venipuncture / Unknown 09/17/2023 5:08 AM EDT 09/17/2023 5:08 AM EDT us Rohan Shin MD LAB BLOOD ORDERABLES Final Result [facility] ([facility]) [address] [place] [address] * (ABNORMAL) Phosphorus (09/17/2023 5:08 AM EDT) [facility] Phosphorus 5.6(H) 2.5 - 5.0 mg/dL 09/17/2023 6:11 AM EDT [facility] ([facility]) Blood Venous blood specimen / Unknown Venipuncture / Unknown 09/17/2023 5:08 AM EDT 09/17/2023 5:08 AM EDT us Rohan Shin MD LAB BLOOD ORDERABLES Final Result [facility]) [address] [place] [address] * Magnesium (09/17/2023 5:08 AM EDT) [facility] Magnesium 2.0 1.9 - 2.7 mg/dL 09/17/2023 6:11 AM EDT [facility] ([facility]) Blood Venous blood specimen / Unknown Venipuncture / Unknown 09/17/2023 5:08 AM EDT 09/17/2023 5:08 AM EDT us Rohan Shin MD LAB BLOOD ORDERABLES Final Result Performing Organization Address City/[facility]/ZIP Co de Phone Number [facility]) [address] [place] [address] * (ABNORMAL) Basic metabolic panel (09/17/2023 5:08 AM EDT) [facility] Sodium 137 136 - 145 mmol/L 09/17/2023 6:11 AM EDT [facility] ([facility]) Potassium 4.5 3.5 - 5.1 mmol/L 09/17/2023 6:11 AM EDT [facility] ([facility]) Chloride 106 98 - 107 mmol/L 09/17/2023 6:11 AM EDT [facility] ([facility]) CO2 24 21 - 31 mmol/L 09/17/2023 6:11 AM EDT [facility] ([facility]) BUN 40(H) 7 - 25 mg/dL 09/17/2023 6:11 AM EDT [facility] ([facility]) Creatinine 1.55(H) 0.70 - 1.30 mg/dL 09/17/2023 6:11 AM EDT [facility] ([facility]) Glucose 70 70 - 100 mg/dL 09/17/2023 6:11 AM EDT [facility] ([facility]) Calcium 8.6 8.6 - 10.3 mg/dL 09/17/2023 6:11 AM EDT [facility] ([facility]) Anion Gap 12 7 - 20 mmol/L 09/17/2023 6:11 AM EDT [facility] ([facility]) eGFR 47.6(L) >60.0 mL/min/1. 73m*2 09/17/2023 6:11 AM EDT [facility] ([facility]) Comment:[facility] s estimated glomerular filtration rate (eGFR) [...] any one group of individuals. BUN/Creatinine Ratio 25.8 08/25 6:11 AM EDT [facility] ([facility]) Blood Venous blood specimen / Unknown Venipuncture / Unknown 09/17/2023 5:08 AM EDT 09/17/2023 5:08 AM EDT us Rohan Shin MD LAB BLOOD ORDERABLES Final Result [facility] ([facility]) [address] [place] [address] documented in this encounter Visit Diagnoses Not on filedocumented in this encounter Additional Health Concerns Infection Onset Date Last Indicated Resolved Time CRE 08/29/2023 08/29/2023 documented as of this encounter Care Teams Svp Chief Marketing Officer Relationship Specialty Start Date End Date Tejas Bryant MD [address] [place] [address] PCP - General Family Medicine 12/29/23 documented as of this encounter
--- OUTSIDE RECORDS SUMMARY | 2024-12-30 15:18 | XMS_ITS | Encounter Summary ---
Author Organization [facility] Address [address] [place] [address] Care Team Providers Care Supervisor Rework Name Role Phone Tejas Bryant MD Primary Care Provider [phone] Encounter Details Date Type Department Care Team (Late st Contact Info) Description 08/28/2023 Lab Requisition [facility] Hospital Lab [address] [place] [phone] Rohan Shin MD [address] [place], [place] [id number] Social History Tobacco Use Types Packs/Day Years Used Date Smoking Tobacco: Never Assessed [place] Safety & Environment Answer Date Rec orded [...] Procedure Name Priority Date/Time Associated Diagnosis Comments BLOOD CULTURE Routine 08/28/2023 3:17 PM EDT BLOOD CULTURE Routine 08/28/2023 3:15 PM EDT documented in this encounter Results * Blood culture (08/28/2023 3:17 PM EDT) Blood Culture No growth at 5 days BAUDILIO 09/02/2023 4:01 PM EDT [facility] ([place]) Blood Venous blood specimen / Unknown Venipuncture / Unknown 08/28/2023 3:17 PM EDT 08/28/2023 3:55 PM EDT us Rohan Shin MD LAB MICROBIOLOGY - GENERAL ORDERABLES Final Result [facility] ([place]) [address] [place] [address] * Blood culture (08/28/2023 3:15 PM EDT) Blood Culture No growth at 5 days BAUDILIO 09/02/2023 4:01 PM EDT [facility] ([facility]) Blood Venous blood specimen / Unknown Venipuncture / Unknown 08/28/2023 3:15 PM EDT 08/28/2023 3:55 PM EDT us Rohan Shin MD LAB MICROBIOLOGY - GENERAL ORDERABLES Final Result Performing Organization Address City/[facility]/ZIP Co de Phone Number [facility] [place] [address] [place], [place] [phone] documented in this encounter Visit Diagnoses Not on filedocumented in this encounter Additional Health Concerns Infection Onset Date Last Indicated Resolved Time CRE 08/29/2023 08/29/2023 documented as of this encounter Care Teams Supervisor Rework Relationship Specialty Start Date End Date Tejas Bryant MD [address] [address] PCP - General Family Medicine 12/29/23 documented as of this encounter
--- OUTSIDE RECORDS SUMMARY | 2024-12-30 15:18 | XMS_ITS | Encounter Summary ---
Author Organization [facility] Address [address] [address] Care Team Providers Care Outside Plant Field Engineer Name Role Phone Tejas Bryant MD Primary Care Provider [phone] Encounter Details Date Type Department Care Team (Late st Contact Info) Description 08/28/2023 Lab Requisition [facility] Lab [address] [place] [phone] Rohan Shin MD [address] [place], [place] [address] Social History Tobacco Use Types Packs/Day Years Used Date Smoking Tobacco: Never Assessed [place] Safety & Environment Answer Date Rec orded [...] Procedure Name Priority Date/Time Associated Diagnosis Comments VANCOMYCIN, TROUGH Routine 08/29/2023 10 :36 AM EDT documented in this encounter Results * Vancomycin, trough (08/29/2023 10:36 AM EDT) Vancomycin Tr 8.8 5.0 - 20.0 ug/mL 08/29/2023 11:20 AM EDT [facility] Blood Venous blood specimen / Unknown Venipuncture / Unknown 08/29/2023 10:36 AM EDT 08/29/2023 10:36 AM EDT us Rohan Shin MD LAB BLOOD ORDERABLES Final Result [facility] ([facility]) [address] [place] [address] documented in this encounter Visit Diagnoses Not on filedocumented in this encounter Additional Health Concerns Infection Onset Date Last Indicated Resolved Time CRE 08/29/2023 08/29/2023 documented as of this encounter Care Teams Outside Plant Field Engineer Relationship Specialty Start Date End Date Tejas Bryant MD [address] [place] [address] PCP - General Family Medicine 12/29/23 documented as of this encounter
--- OUTSIDE RECORDS SUMMARY | 2024-12-30 15:18 | XMS_ITS | Encounter Summary ---
Author Organization [facility] Address [address] [place] [address] Care Team Providers Care Bottled Beverage Inspector Name Role Phone Tejas Bryant MD Primary Care Provider [phone] Encounter Details Date Type Department Care Team (Late st Contact Info) Description 08/28/2023 Lab Requisition [facility] Hospital Lab [address] [place] [phone] Rohan Shin MD [address] [place], [place] [id number] Social History Tobacco Use Types Packs/Day Years Used Date Smoking Tobacco: Never Assessed [place] Safety & Environment Answer Date Rec orded [...] Procedure Name Priority Date/Time Associated Diagnosis Comments TSH3 REFLEX TO FT4 Routine 08/28/2023 9: 45 AM EDT PROCALCITONIN TEST Routine 08/28/2023 9: 45 AM EDT CBC Routine 08/28/2023 9:45 AM EDT AMMONIA Routine 08/28/2023 9:45 AM EDT COMPREHENSIVE METABOLIC PANEL Routine 08/28/2023 9:45 AM EDT documented in this encounter Results * TSH3 Reflex to FT4 (08/28/2023 9:45 AM EDT) TSH 5.27 0.34 - 5.60 mIU/L 08/28/2023 11:21 AM EDT [facility] ([facility]) Blood Venous blood specimen / Unknown Venipuncture / Unknown 08/28/2023 9:45 AM EDT 08/28/2023 10:38 AM EDT us Rohan Shin MD LAB BLOOD ORDERABLES Final Result [facility] ([facility]) [address] [place] [address] * (ABNORMAL) Procalcitonin Test (08/28/2023 9:45 AM EDT) Procalcitonin 16.65(HH) 0.00 - 0.10 ng/mL 08/28/2023 12:51 PM EDT [facility] ([facility]) Comment: Suspected Lower Respiratory [...] specimen / Unknown Venipuncture / Unknown 08/28/2023 9:45 AM EDT 08/28/2023 10:38 AM EDT us Rohan Shin MD LAB BLOOD ORDERABLES Final Result [facility] ([facility]) [address] [place] [address] * Ammonia (08/28/2023 9:45 AM EDT) Ammonia 23 18 - 72 umol/L 08/28/2023 11:04 AM EDT [facility] ([facility]) Blood Venous blood specimen / Unknown Venipuncture / Unknown 08/28/2023 9:45 AM EDT 08/28/2023 10:38 AM EDT us Rohan Shin MD LAB BLOOD ORDERABLES Final Result [facility]) [address] [place] [address] * (ABNORMAL) Comprehensive metabolic panel (08/28/2023 9:45 AM EDT) Sodium 137 136 - 145 mmol/L 08/28/2023 11:21 AM EDT [facility] ([facility]) Potassium 3.6 3.5 - 5.1 mmol/L 08/28/2023 11:21 AM EDT [facility] ([facility]) Chloride 99 98 - 107 mmol/L 08/28/2023 11:21 AM EDT [facility] ([facility]) CO2 30 21 - 31 mmol/L 08/28/2023 11:21 AM [facility] ([facility]) Anion Gap 12 7 - 20 mmol/L 08/28/2023 11:21 AM [facility] ([facility]) BUN 41(H) 7 - 25 mg/dL 08/28/2023 11:21 AM [facility] ([facility]) Creatinine 3.75(H) 0.70 - 1.30 mg/dL 08/28/2023 11:21 AM [facility] ([facility]) BUN/Creatinine Ratio 10.9 08/2023 11:21 AM [facility] ([facility]) Glucose 122(H) 70 - 100 mg/dL 08/28/2023 11:21 AM [facility] ([facility]) Calcium 8.6 8.6 - 10.3 mg/dL 08/28/2023 11:21 AM [facility] ([facility]) AST 18 13 - 39 U/L 08/28/2023 11:21 AM [facility] ([facility]) ALT (SGPT) 9 7 - 52 U/L 08/28/2023 11:21 AM [facility] ([facility]) Alkaline Phosphatase 91 34 - 104 U/L 08/28/2023 11:21 AM [facility] ([facility]) Total Protein 7.1 6.0 - 8.3 g/dL 08/28/2023 11:21 AM [facility] ([facility]) Albumin 2.7(L) 3.5 - 5.7 g/dL 08/28/2023 11:21 AM [facility] ([facility]) Total Bilirubin 0.6 0.3 - 1.0 mg/dL 08/28/2023 11:21 AM [facility] ([facility]) eGFR 16.5(L) >60.0 mL/min/1. 73m*2 08/28/2023 11:21 AM [facility] ([facility]) Comment:[facility] s estimated glomerular filtration rate (eGFR) will [...] disproportionately affect any one group of individuals. Blood Venous blood specimen / Unknown Venipuncture / Unknown 08/28/2023 9:45 AM EDT 08/28/2023 10:38 AM EDT us Rohan Shin MD LAB BLOOD ORDERABLES Final Result [facility]) [address] [place] [address] * (ABNORMAL) CBC (08/28/2023 9:45 AM EDT) Auto WBC 33.80(H) 4.00 - 10.60 10*3/uL 08/28/2023 10:46 AM EDT [facility] ([facility]) RBC 3.39(L) 4.20 - 5.70 10*6/uL 08/28/2023 10:46 AM EDT [facility] ([facility]) Hemoglobin 10.1(L) 13.0 - 17.0 g/dL 08/28/2023 10:46 AM EDT [facility] ([facility]) Hematocrit 30.2(L) 39.0 - 55.0 % 08/28/2023 10:46 AM EDT [facility] ([facility]) MCV 89.1 82.0 - 98.0 fL 08/28/2023 10:46 AM EDT [facility] ([facility]) MCH 29.8 27.0 - 33.0 pg 08/28/2023 10:46 AM EDT [facility] ([facility]) MCHC 33.4 32.0 - 35.0 g/dL 08/28/2023 10:46 AM EDT [facility] ([facility]) RDW 15.9(H) 11.5 - 15.0 % 08/28/2023 10:46 AM EDT [facility] ([facility]) Platelets 754(H) 150 - 400 10*3/uL 08/28/2023 10:46 AM EDT [facility] ([facility]) Blood Venous blood specimen / Unknown Venipuncture / Unknown 08/28/2023 9:45 AM EDT 08/28/2023 10:38 AM EDT Rohan Shin MD LAB BLOOD ORDERABLES Final Result [facility] ([facility]) [address] [place] [address] documented in this encounter Visit Diagnoses Not on filedocumented in this encounter Additional Health Concerns Infection Onset Date Last Indicated Resolved Time CRE 08/29/2023 08/29/2023 documented as of this encounter Care Teams Bottled Beverage Inspector Relationship Specialty Start Date End Date Tejas Bryant MD [address] [place] [address] PCP - General Family Medicine 12/29/23 documented as of this encounter
--- OUTSIDE RECORDS SUMMARY | 2024-12-30 15:18 | XMS_ITS | Encounter Summary ---
Author Organization [facility] Address [address] [place] [address] Care Team Providers Care Coat Joiner Name Role Phone Tejas Bryant MD Primary Care Provider [phone] Encounter Details Date Type Department Care Team (Late st Contact Info) Description 09/17/2023 Lab Requisition [facility] Hospital Lab [address] [place] [phone] Rohan Shin MD [address] [place], [place] [phone] Social History Tobacco Use Types Packs/Day Years Used Date Smoking Tobacco: Never Assessed [place] Safety & Environment Answer Date Rec orded [...] Priority Date/Time Associated Diagnosis Comments CBC Routine 09/18/2023 5:30 AM EDT PHOSPHORUS Routine 09/18/2023 5:30 AM EDT MAGNESIUM Routine 09/18/2023 5:30 AM EDT BASIC METABOLIC PANEL Routine 09/18/2023 5:30 AM EDT documented in this encounter Results * (ABNORMAL) Phosphorus (09/18/2023 5:30 AM EDT) Phosphorus 5.1(H) 2.5 - 5.0 mg/dL 09/18/2023 7:32 AM EDT [facility] ([facility]) Blood Venous blood specimen / Unknown Venipuncture / Unknown 09/18/2023 5:30 AM EDT 09/18/2023 6:26 AM EDT Rohan Shin MD LAB BLOOD ORDERABLES Final Result [facility]) [address] [place] [address] * Magnesium (09/18/2023 5:30 AM EDT) Magnesium 2.0 1.9 - 2.7 mg/dL 09/18/2023 7:32 AM EDT [facility]) Blood Venous blood specimen / Unknown Venipuncture / Unknown 09/18/2023 5:30 AM EDT 09/18/2023 6:26 AM EDT Rohan Shin MD LAB BLOOD ORDERABLES Final Result [facility]) [address] [place] [address] * (ABNORMAL) CBC (09/18/2023 5:30 AM EDT) Auto WBC 9.63 4.00 - 10.60 10*3/uL 09/18/2023 6:35 AM EDT [facility]) RBC 2.99(L) 4.20 - 5.70 10*6/uL 09/18/2023 6:35 AM EDT [facility]) Hemoglobin 8.8(L) 13.0 - 17.0 g/dL 09/18/2023 6:35 AM EDT [facility] ([facility]) Hematocrit 27.4(L) 39.0 - 55.0 % 09/18/2023 6:35 AM EDT [facility] ([facility]) MCV 91.6 82.0 - 98.0 fL 09/18/2023 6:35 AM EDT [facility] ([facility]) MCH 29.4 27.0 - 33.0 pg 09/18/2023 6:35 AM EDT [facility] ([facility]) MCHC 32.1 32.0 - 35.0 g/dL 09/18/2023 6:35 AM EDT [facility] ([facility]) RDW 17.3(H) 11.5 - 15.0 % 09/18/2023 6:35 AM EDT [facility] ([facility]) Platelets 543(H) 150 - 400 10*3/uL 09/18/2023 6:35 AM EDT [facility] ([facility]) Blood Venous blood specimen / Unknown Venipuncture / Unknown 09/18/2023 5:30 AM EDT 09/18/2023 6:26 AM EDT us Rohan Shin MD LAB BLOOD ORDERABLES Final Result [facility] ([facility]) [address] [place], [place] [id number] * (ABNORMAL) Basic metabolic panel (09/18/2023 5:30 AM EDT) Sodium 136 136 - 145 mmol/L 09/18/2023 7:32 AM EDT [facility] ([facility]) Potassium 4.3 3.5 - 5.1 mmol/L 09/18/2023 7:32 AM EDT [facility] ([facility]) Chloride 109(H) 98 - 107 mmol/L 09/18/2023 7:32 AM EDT [facility] ([facility]) CO2 20(L) 21 - 31 mmol/L 09/18/2023 7:32 AM EDT [facility] ([facility]) BUN 33(H) 7 - 25 mg/dL 09/18/2023 7:32 AM EDT [facility] ([facility]) Creatinine 1.30 0.70 - 1.30 mg/dL 09/18/2023 7:32 AM EDT [facility] ([facility]) Glucose 76 70 - 100 mg/dL 09/18/2023 7:32 AM EDT [facility] ([facility]) Calcium 8.2(L) 8.6 - 10.3 mg/dL 09/18/2023 7:32 AM EDT [facility] ([facility]) Anion Gap 11 7 - 20 mmol/L 09/18/2023 7:32 AM EDT [facility] ([facility]) eGFR 58.7(L) >60.0 mL/min/1. 73m*2 09/18/2023 7:32 AM EDT [facility] ([facility]) Comment:The [facility] s estimated glomerular filtration rate (eGFR) [...] any one group of individuals. BUN/Creatinine Ratio 25.4 08/25 7:32 AM EDT [facility] ([facility]) Blood Venous blood specimen / Unknown Venipuncture / Unknown 09/18/2023 5:30 AM EDT 09/18/2023 6:26 AM EDT us Rohan Shin MD LAB BLOOD ORDERABLES Final Result [facility] ([facility]) [address] [facility] [place], [place] [phone] documented in this encounter Visit Diagnoses Not on filedocumented in this encounter Additional Health Concerns Infection Onset Date Last Indicated Resolved Time CRE 08/29/2023 08/29/2023 documented as of this encounter Care Teams Coat Joiner Relationship Specialty Start Date End Date Tejas Bryant MD [address] [place] [address] PCP - General Family Medicine 12/29/23 documented as of this encounter
--- OUTSIDE RECORDS SUMMARY | 2024-12-30 15:18 | XMS_ITS | Encounter Summary ---
Author Organization [facility] Address [address] [place] [address] Care Team Providers Care Law Office Manager Name Role Phone Tejas Bryant MD Primary Care Provider [phone] Encounter Details Date Type Department Care Team (Late st Contact Info) Description 09/15/2023 Lab Requisition [facility] Hospital Lab [address] [place] [phone] Rohan Shin MD [address] [place], [place] [phone] Social History Tobacco Use Types Packs/Day Years Used Date Smoking Tobacco: Never Assessed [place] Safety & Environment Answer Date Rec orded [...] Priority Date/Time Associated Diagnosis Comments CBC Routine 09/15/2023 5:30 AM EDT PHOSPHORUS Routine 09/15/2023 5:30 AM EDT MAGNESIUM Routine 09/15/2023 5:30 AM EDT BASIC METABOLIC PANEL Routine 09/15/2023 5:30 AM EDT documented in this encounter Results * (ABNORMAL) CBC (09/15/2023 5:30 AM EDT) Auto WBC 10.10 4.00 - 10.60 10*3/uL 09/15/2023 6:18 AM EDT [facility] ([facility]) RBC 3.28(L) 4.20 - 5.70 10*6/uL 09/15/2023 6:18 AM EDT [facility] ([facility]) Hemoglobin 9.4(L) 13.0 - 17.0 g/dL 09/15/2023 6:18 AM EDT [facility] ([facility]) Hematocrit 29.5(L) 39.0 - 55.0 % 09/15/2023 6:18 AM EDT [facility] ([facility]) MCV 89.9 82.0 - 98.0 fL 09/15/2023 6:18 AM EDT [facility] ([facility]) MCH 28.7 27.0 - 33.0 pg 09/15/2023 6:18 AM EDT [facility] ([facility]) MCHC 31.9(L) 32.0 - 35.0 g/dL 09/15/2023 6:18 AM EDT [facility] ([facility]) RDW 17.2(H) 11.5 - 15.0 % 09/15/2023 6:18 AM EDT [facility] ([facility]) Platelets 634(H) 150 - 400 10*3/uL 09/15/2023 6:18 AM EDT [facility] ([facility]) Blood Venous blood specimen / Unknown Venipuncture / Unknown 09/15/2023 5:30 AM EDT 09/15/2023 6:10 AM EDT us Rohan Shin MD LAB BLOOD ORDERABLES Final Result [facility] ([facility]) [address] [place] [address] * (ABNORMAL) Phosphorus (09/15/2023 5:30 AM EDT) [facility] Phosphorus 7.5(H) 2.5 - 5.0 mg/dL 09/15/2023 8:31 AM EDT [facility] ([facility]) Blood Venous blood specimen / Unknown Venipuncture / Unknown 09/15/2023 5:30 AM EDT 09/15/2023 6:10 AM EDT us Rohan Shin MD LAB BLOOD ORDERABLES Final Result Performing Organization Address City/[facility]/ZIP Co de Phone Number [facility]) [address] [place] [address] * Magnesium (09/15/2023 5:30 AM EDT) [facility] Magnesium 2.2 1.9 - 2.7 mg/dL 09/15/2023 8:31 AM EDT [facility] ([facility]) Blood Venous blood specimen / Unknown Venipuncture / Unknown 09/15/2023 5:30 AM EDT 09/15/2023 6:10 AM EDT us Rohan Shin MD LAB BLOOD ORDERABLES Final Result Performing Organization Address City/[facility] Co de Phone Number [facility]) [address] [place] [address] * (ABNORMAL) Basic metabolic panel (09/15/2023 5:30 AM EDT) [facility] Sodium 134(L) 136 - 145 mmol/L 09/15/2023 8:31 AM EDT [facility]) Potassium 4.7 3.5 - 5.1 mmol/L 09/15/2023 8:31 AM EDT [facility] ([facility]) Chloride 102 98 - 107 mmol/L 09/15/2023 8:31 AM EDT [facility] ([facility]) CO2 24 21 - 31 mmol/L 09/15/2023 8:31 AM EDT [facility] ([facility]) BUN 61(H) 7 - 25 mg/dL 09/15/2023 8:31 AM EDT [facility] ([facility]) Creatinine 2.10(H) 0.70 - 1.30 mg/dL 09/15/2023 8:31 AM EDT [facility] ([facility]) Glucose 71 70 - 100 mg/dL 09/15/2023 8:31 AM EDT [facility] ([facility]) Calcium 8.3(L) 8.6 - 10.3 mg/dL 09/15/2023 8:31 AM EDT [facility] ([facility]) Anion Gap 13 7 - 20 mmol/L 09/15/2023 8:31 AM EDT [facility] ([facility]) eGFR 33.0(L) >60.0 mL/min/1. 73m*2 09/15/2023 8:31 AM EDT [facility] ([facility]) Comment:The [facility] s estimated glomerular filtration rate (eGFR) [...] any one group of individuals. BUN/Creatinine Ratio 29.0 08/25 8:31 AM EDT [facility] ([facility]) Blood Venous blood specimen / Unknown Venipuncture / Unknown 09/15/2023 5:30 AM EDT 09/15/2023 6:10 AM EDT us Rohan Shin MD LAB BLOOD ORDERABLES Final Result [facility] ([facility]) [address] [place] [address] documented in this encounter Visit Diagnoses Not on filedocumented in this encounter Additional Health Concerns Infection Onset Date Last Indicated Resolved Time CRE 08/29/2023 08/29/2023 documented as of this encounter Care Teams Law Office Manager Relationship Specialty Start Date End Date Tejas Bryant MD [address] [place] [address] PCP - General Family Medicine 12/29/23 documented as of this encounter
--- OUTSIDE RECORDS SUMMARY | 2024-12-30 15:18 | XMS_ITS | Encounter Summary ---
Author Organization [facility] Address [address] [place] [address] Care Team Providers Care Financial Services Auditor Name Role Phone Tejas Bryant MD Primary Care Provider [phone] Encounter Details Date Type Department Care Team (Late st Contact Info) Description 08/24/2023 Lab Requisition [facility] Hospital Lab [address] [place] [phone] Rohan Shin MD [address] [place], [place] [id number] Social History Tobacco Use Types Packs/Day Years Used Date Smoking Tobacco: Never Assessed [place] Safety & Environment Answer Date Rec orded [...] Procedure Name Priority Date/Time Associated Diagnosis Comments PREALBUMIN Routine 08/25/2023 5:30 AM EDT PHOSPHORUS Routine 08/25/2023 5:30 AM EDT MAGNESIUM Routine 08/25/2023 5:30 AM EDT COMPREHENSIVE METABOLIC PANEL Routine 08/25/2023 5:30 AM EDT CBC WITH AUTO DIFFERENTIAL Routine 08/25/2023 5:00 AM EDT MANUAL DIFFERENTIAL Routine 08/25/2023 5 :00 AM EDT CBC AND DIFFERENTIAL Routine 08/25/2023 5:00 AM EDT documented in this encounter Results * Prealbumin (08/25/2023 5:30 AM EDT) Prealbumin 11.9 mg/dL 08/25/2023 7:45 AM EDT [facility] ([facility]) Blood Venous blood specimen / Unknown Venipuncture / Unknown 08/25/2023 5:30 AM EDT 08/25/2023 6:46 AM EDT Rohan Shin MD LAB BLOOD ORDERABLES Final Result [facility]) [address] [place], [place] [id number] * Phosphorus (08/25/2023 5:30 AM EDT) Phosphorus 3.1 2.5 - 5.0 mg/dL 08/25/2023 7:45 AM EDT [facility] ([facility]) Blood Venous blood specimen / Unknown Venipuncture / Unknown 08/25/2023 5:30 AM EDT 08/25/2023 6:46 AM EDT Rohan Shin MD LAB BLOOD ORDERABLES Final Result [facility]) [address] [place], [place] [id number] * Magnesium (08/25/2023 5:30 AM EDT) Magnesium 2.4 1.9 - 2.7 mg/dL 08/25/2023 7:45 AM EDT [facility] ([facility]) Blood Venous blood specimen / Unknown Venipuncture / Unknown 08/25/2023 5:30 AM EDT 08/25/2023 6:46 AM EDT us Rohan Shin MD LAB BLOOD ORDERABLES Final Result [facility] ([facility]) [address] [place] [address] * (ABNORMAL) Comprehensive metabolic panel (08/25/2023 5:30 AM EDT) Sodium 133(L) 136 - 145 mmol/L 08/25/2023 7:45 AM EDT [facility] ([facility]) Potassium 3.6 3.5 - 5.1 mmol/L 08/25/2023 7:45 AM EDT [facility] ([facility]) Chloride 97(L) 98 - 107 mmol/L 08/25/2023 7:45 AM EDT [facility] ([facility]) CO2 28 21 - 31 mmol/L 08/25/2023 7:45 AM EDT [facility] ([facility]) Anion Gap 12 7 - 20 mmol/L 08/25/2023 7:45 AM EDT [facility] ([facility]) BUN 52(H) 7 - 25 mg/dL 08/25/2023 7:45 AM EDT [facility] ([facility]) Creatinine 2.95(H) 0.70 - 1.30 mg/dL 08/25/2023 7:45 AM EDT [facility] ([facility]) BUN/Creatinine Ratio 17.6 05/2023 7:45 AM EDT [facility] ([facility]) Glucose 139(H) 70 - 100 mg/dL 08/25/2023 7:45 AM EDT [facility] ([facility]) Calcium 8.2(L) 8.6 - 10.3 mg/dL 08/25/2023 7:45 AM EDT [facility] ([facility]) AST 14 13 - 39 U/L 08/25/2023 7:45 AM EDT [facility] ([facility]) ALT (SGPT) 8 7 - 52 U/L 08/25/2023 7:45 AM EDT [facility] ([facility]) Alkaline Phosphatase 91 34 - 104 U/L 08/25/2023 7:45 AM EDT [facility] ([facility]) Total Protein 6.7 6.0 - 8.3 g/dL 08/25/2023 7:45 AM EDT [facility] ([facility]) Albumin 2.5(L) 3.5 - 5.7 g/dL 08/25/2023 7:45 AM EDT [facility] ([facility]) Total Bilirubin 0.4 0.3 - 1.0 mg/dL 08/25/2023 7:45 AM EDT [facility] ([facility]) eGFR 22.0(L) >60.0 mL/min/1. 73m*2 08/25/2023 7:45 AM EDT [facility] ([facility]) Comment:[facility] s estimated glomerular filtration rate (eGFR) will [...] blood specimen / Unknown Venipuncture / Unknown 08/25/2023 5:30 AM EDT 08/25/2023 6:46 AM EDT us Rohan Shin MD LAB BLOOD ORDERABLES Final Result [facility]) [address] [place] [address] * (ABNORMAL) Manual Differential (08/25/2023 5:00 AM EDT) Immature Granulocytes % 0.8 0.0 - 1.0 % 08/25/2023 9:10 AM EDT [facility] ([facility]) Neutrophils Absolute 14.6(H) 1.6 - 7.6 10*3/uL 08/25/2023 9:10 AM EDT [facility] ([facility]) Lymphocytes Absolute 1.99 1.20 - 4.00 10*3/uL 08/25/2023 9:10 AM EDT [facility] ([facility]) Monocytes Absolute 2.03(H) 0.10 - 1.00 10*3/uL 08/25/2023 9:10 AM EDT [facility] ([facility]) Eosinophils Absolute 0.15 0.00 - 0.50 10*3/uL 08/25/2023 9:10 AM EDT [facility] ([facility]) Basophils Absolute 0.17 0.00 - 0.20 10*3/uL 08/25/2023 9:10 AM EDT [facility] ([facility]) Neutrophils % 76.5(H) 40.0 - 72.0 % 08/25/2023 9:10 AM EDT [facility] ([facility]) Lymphocytes % 10.4(L) 20.0 - 45.0 % 08/25/2023 9:10 AM EDT [facility] ([facility]) Monocytes % 10.6 5.0 - 12.0 % 08/25/2023 9:10 AM EDT [facility] ([facility]) Eosinophils % 0.8 0.0 - 6.0 % 08/25/2023 9:10 AM EDT [facility] ([facility]) Basophils % 0.9 0.0 - 1.0 % 08/25/2023 9:10 AM EDT [facility] ([facility]) Immature Granulocytes Absolute 0.15 0.00 - 0.20 10*3/uL 08/25/2023 9:10 AM EDT [facility] ([facility]) Blood Venous blood specimen / Unknown Venipuncture / Unknown 08/25/2023 5:00 AM EDT 08/25/2023 6:47 AM EDT us Rohan Shin MD LAB BLOOD ORDERABLES Final Result [facility] ([facility]) [address] [place] [address] * (ABNORMAL) CBC auto differential (08/25/2023 5:00 AM EDT) Auto WBC 19.13(H) 4.00 - 10.60 10*3/uL 08/25/2023 7:15 AM EDT [facility] ([facility]) RBC 3.20(L) 4.20 - 5.70 10*6/uL 08/25/2023 7:15 AM EDT [facility] ([facility]) Hemoglobin 9.5(L) 13.0 - 17.0 g/dL 08/25/2023 7:15 AM EDT [facility] ([facility]) Hematocrit 28.7(L) 39.0 - 55.0 % 08/25/2023 7:15 AM EDT [facility] ([facility]) MCV 89.7 82.0 - 98.0 fL 08/25/2023 7:15 AM EDT [facility] ([facility]) MCH 29.7 27.0 - 33.0 pg 08/25/2023 7:15 AM EDT [facility] ([facility]) MCHC 33.1 32.0 - 35.0 g/dL 08/25/2023 7:15 AM EDT [facility] ([facility]) RDW 15.7(H) 11.5 - 15.0 % 08/25/2023 7:15 AM EDT [facility] ([facility]) Platelets 911(H) 150 - 400 10*3/uL 08/25/2023 7:15 AM EDT [facility] ([facility]) nRBC % 0.0 0 % 08/25/2023 7:15 AM EDT [facility] ([facility]) Blood Venous blood specimen / Unknown Venipuncture / Unknown 08/25/2023 5:00 AM EDT 08/25/2023 6:47 AM EDT us Rohan Shin MD LAB BLOOD ORDERABLES Final Result [facility] ([facility]) [address] [place] [address] documented in this encounter Visit Diagnoses Not on filedocumented in this encounter Additional Health Concerns Infection Onset Date Last Indicated Resolved Time CRE 08/29/2023 08/29/2023 documented as of this encounter Care Teams Financial Services Auditor Relationship Specialty Start Date End Date Tejas Bryant MD [address] [place] [address] PCP - General Family Medicine 12/29/23 documented as of this encounter
--- OUTSIDE RECORDS SUMMARY | 2024-12-30 15:18 | XMS_ITS | Encounter Summary ---
Author Organization [facility] Address [address] [place] [address] Care Team Providers Care Anesthesiologist And Critical Care Name Role Phone Tejas Bryant MD Primary Care Provider [phone] Encounter Details Date Type Department Care Team (Late st Contact Info) Description 09/20/2023 Lab Requisition [facility] Hospital Lab [address] [place] [phone] Rohan Shin MD [address] [place], [place] [phone] Respiratory failure, unspecified, unspecified whether with hypoxia or hypercapnia (CMS/HCC) Social History Tobacco Use Types Packs/Day Years Used Date Smoking Tobacco: Never Assessed [place] Safety & Environment Answer Date Rec orded [...] Priority Date/Time Associated Diagnosis Comments CBC Routine 09/20/2023 4:30 AM EDT PHOSPHORUS Routine 09/20/2023 4:30 AM EDT MAGNESIUM Routine 09/20/2023 4:30 AM EDT BASIC METABOLIC PANEL Routine 09/20/2023 4:30 AM EDT documented in this encounter Results * (ABNORMAL) Phosphorus (09/20/2023 4:30 AM EDT) [facility] Phosphorus 5.3(H) 2.5 - 5.0 mg/dL 09/20/2023 6:06 AM EDT [facility] ([facility]) Blood Venous blood specimen / Unknown Venipuncture / Unknown 09/20/2023 4:30 AM EDT 09/20/2023 5:18 AM EDT Rohan Shin MD LAB BLOOD ORDERABLES Final Result Performing Organization Address City/[facility]/ZIP Co de Phone Number [facility]) [address] [place] [address] * (ABNORMAL) Magnesium (09/20/2023 4:30 AM EDT) [facility] Magnesium 1.8(L) 1.9 - 2.7 mg/dL 09/20/2023 6:06 AM EDT [facility]) Blood Venous blood specimen / Unknown Venipuncture / Unknown 09/20/2023 4:30 AM EDT 09/20/2023 5:18 AM EDT Rohan Shin MD LAB BLOOD ORDERABLES Final Result [facility]) [address] [place], [place] [id number] * (ABNORMAL) CBC (09/20/2023 4:30 AM EDT) [facility] Auto WBC 10.08 4.00 - 10.60 10*3/uL 09/20/2023 5:55 AM EDT [facility] ([facility]) RBC 3.10(L) 4.20 - 5.70 10*6/uL 09/20/2023 5:55 AM EDT [facility] ([facility]) Hemoglobin 9.2(L) 13.0 - 17.0 g/dL 09/20/2023 5:55 AM EDT [facility] ([facility]) Hematocrit 28.4(L) 39.0 - 55.0 % 09/20/2023 5:55 AM EDT [facility] ([facility]) MCV 91.6 82.0 - 98.0 fL 09/20/2023 5:55 AM EDT [facility] ([facility]) MCH 29.7 27.0 - 33.0 pg 09/20/2023 5:55 AM EDT [facility] ([facility]) MCHC 32.4 32.0 - 35.0 g/dL 09/20/2023 5:55 AM EDT [facility] ([facility]) RDW 16.9(H) 11.5 - 15.0 % 09/20/2023 5:55 AM EDT [facility] ([facility]) Platelets 495(H) 150 - 400 10*3/uL 09/20/2023 5:55 AM EDT [facility] ([facility]) Blood Venous blood specimen / Unknown Venipuncture / Unknown 09/20/2023 4:30 AM EDT 09/20/2023 5:18 AM EDT us Rohan Shin MD LAB BLOOD ORDERABLES Final Result [facility]) [address] [place] [address] * (ABNORMAL) Basic metabolic panel (09/20/2023 4:30 AM EDT) Sodium 136 136 - 145 mmol/L 09/20/2023 6:06 AM EDT [facility] ([facility]) Potassium 4.6 3.5 - 5.1 mmol/L 09/20/2023 6:06 AM EDT [facility] ([facility]) Chloride 108(H) 98 - 107 mmol/L 09/20/2023 6:06 AM EDT [facility] ([facility]) CO2 19(L) 21 - 31 mmol/L 09/20/2023 6:06 AM EDT [facility] ([facility]) BUN 34(H) 7 - 25 mg/dL 09/20/2023 6:06 AM EDT [facility] ([facility]) Creatinine 1.27 0.70 - 1.30 mg/dL 09/20/2023 6:06 AM EDT [facility] ([facility]) Glucose 66(L) 70 - 100 mg/dL 09/20/2023 6:06 AM EDT [facility] ([facility]) Calcium 8.0(L) 8.6 - 10.3 mg/dL 09/20/2023 6:06 AM EDT [facility] ([facility]) Anion Gap 14 7 - 20 mmol/L 09/20/2023 6:06 AM EDT [facility] ([facility]) eGFR 60.4 >60.0 mL/min/1. 73m*2 09/20/2023 6:06 AM EDT [facility] ([facility]) Comment:[facility] s estimated glomerular filtration rate [...] any one group of individuals. BUN/Creatinine Ratio 26.8 08/25 6:06 AM EDT [facility] ([facility]) Blood Venous blood specimen / Unknown Venipuncture / Unknown 09/20/2023 4:30 AM EDT 09/20/2023 5:18 AM EDT us Rohan Shin MD LAB BLOOD ORDERABLES Final Result [facility] ([facility]) [address] [place] [address] documented in this encounter Visit Diagnoses Diagnosis Respiratory failure, unspecified, unspecified whether with hypoxia or hypercapnia (CMS/HCC) documented in this encounter Additional Health Concerns Infection Onset Date Last Indicated Resolved Time CRE 08/29/2023 08/29/2023 documented as of this encounter Care Teams Anesthesiologist And Critical Care Relationship Specialty Start Date End Date Tejas Bryant MD [address] [place] [address] PCP - General Family Medicine 12/29/23 documented as of this encounter
--- OUTSIDE RECORDS SUMMARY | 2024-12-30 15:18 | XMS_ITS | Encounter Summary ---
Author Organization [facility] Address [address] [place] [address] Care Team Providers Care Animal Care Assistant Name Role Phone Tejas Bryant MD Primary Care Provider [phone] Encounter Details Date Type Department Care Team (Late st Contact Info) Description 08/26/2023 Lab Requisition [facility] Hospital Lab [address] [place] [phone] Rohan Shin MD [address] [place] [address] Social History Tobacco Use Types Packs/Day Years Used Date Smoking Tobacco: Never Assessed [place] Safety & Environment Answer Date Rec orded [...] Priority Date/Time Associated Diagnosis Comments CBC Routine 08/27/2023 4:40 AM EDT PHOSPHORUS Routine 08/27/2023 4:40 AM EDT MAGNESIUM Routine 08/27/2023 4:40 AM EDT BASIC METABOLIC PANEL Routine 08/27/2023 4:40 AM EDT documented in this encounter Results * Phosphorus (08/27/2023 4:40 AM EDT) [facility] Phosphorus 3.3 2.5 - 5.0 mg/dL 08/27/2023 5:58 AM EDT [facility] ([facility]) Blood Venous blood specimen / Unknown 08/27/2023 4:40 AM EDT 08/27/2023 5:06 AM EDT Rohan Shin MD LAB BLOOD ORDERABLES Final Result [facility]) [address] [place] [address] * Magnesium (08/27/2023 4:40 AM EDT) [facility] Magnesium 2.4 1.9 - 2.7 mg/dL 08/27/2023 5:58 AM EDT [facility] ([facility]) Blood Venous blood specimen / Unknown 08/27/2023 4:40 AM EDT 08/27/2023 5:06 AM EDT Rohan Shin MD LAB BLOOD ORDERABLES Final Result Performing Organization Address City/[facility]/ZIP Co de Phone Number [facility]) [address] [place] [phone] * (ABNORMAL) CBC (08/27/2023 4:40 AM EDT) [facility] Auto WBC 13.92(H) 4.00 - 10.60 10*3/uL 08/27/2023 5:23 AM EDT [facility]) RBC 3.32(L) 4.20 - 5.70 10*6/uL 08/27/2023 5:23 AM EDT [facility] ([facility]) Hemoglobin 9.6(L) 13.0 - 17.0 g/dL 08/27/2023 5:23 AM EDT [facility]) Hematocrit 29.7(L) 39.0 - 55.0 % 08/27/2023 5:23 AM EDT [facility] ([facility]) MCV 89.5 82.0 - 98.0 fL 08/27/2023 5:23 AM EDT [facility] ([facility]) MCH 28.9 27.0 - 33.0 pg 08/27/2023 5:23 AM EDT [facility] ([facility]) MCHC 32.3 32.0 - 35.0 g/dL 08/27/2023 5:23 AM EDT [facility] ([facility]) RDW 15.5(H) 11.5 - 15.0 % 08/27/2023 5:23 AM EDT [facility] ([facility]) Platelets 803(H) 150 - 400 10*3/uL 08/27/2023 5:23 AM EDT [facility] ([facility]) Blood Venous blood specimen / Unknown 08/27/2023 4:40 AM EDT 08/27/2023 5:06 AM EDT us Rohan Shin MD LAB BLOOD ORDERABLES Final Result [facility] ([facility]) [address] [place], [place] [id number] * (ABNORMAL) Basic metabolic panel (08/27/2023 4:40 AM EDT) Sodium 132(L) 136 - 145 mmol/L 08/27/2023 5:58 AM EDT [facility] ([facility]) Potassium 3.3(L) 3.5 - 5.1 mmol/L 08/27/2023 5:58 AM EDT [facility] ([facility]) Chloride 95(L) 98 - 107 mmol/L 08/27/2023 5:58 AM EDT [facility] ([facility]) CO2 30 21 - 31 mmol/L 08/27/2023 5:58 AM EDT [facility] ([facility]) BUN 57(H) 7 - 25 mg/dL 08/27/2023 5:58 AM EDT [facility] ([facility]) Creatinine 3.38(H) 0.70 - 1.30 mg/dL 08/27/2023 5:58 AM EDT [facility] ([facility]) Glucose 105(H) 70 - 100 mg/dL 08/27/2023 5:58 AM EDT [facility] ([facility]) Calcium 8.1(L) 8.6 - 10.3 mg/dL 08/27/2023 5:58 AM EDT [facility] ([facility]) Anion Gap 10 7 - 20 mmol/L 08/27/2023 5:58 AM EDT [facility] ([facility]) eGFR 18.7(L) >60.0 mL/min/1. 73m*2 08/27/2023 5:58 AM EDT [facility] ([facility]) Comment:[facility] s estimated glomerular filtration rate (eGFR) [...] any one group of individuals. BUN/Creatinine Ratio 16.9 07/2023 5:58 AM EDT [facility] ([facility]) Blood Venous blood specimen / Unknown 08/27/2023 4:40 AM EDT 08/27/2023 5:06 AM EDT us Rohan Shin MD LAB BLOOD ORDERABLES Final Result [facility] ([facility]) [address] [place] [address] documented in this encounter Visit Diagnoses Not on filedocumented in this encounter Additional Health Concerns Infection Onset Date Last Indicated Resolved Time CRE 08/29/2023 08/29/2023 documented as of this encounter Care Teams Animal Care Assistant Relationship Specialty Start Date End Date Tejas Bryant MD [address] [place] [address] PCP - General Family Medicine 12/29/23 documented as of this encounter
--- OUTSIDE RECORDS SUMMARY | 2024-12-30 15:18 | XMS_ITS | Encounter Summary ---
Author Organization [facility] Address [address] [place] [address] Care Team Providers Care Well Drill Operator Name Role Phone Tejas Bryant MD Primary Care Provider [phone] Encounter Details Date Type Department Care Team (Late st Contact Info) Description 08/29/2023 Lab Requisition [facility] Lab [address] [place] [phone] Rohan Shin MD [address] [place], [place] [id number] Social History Tobacco Use Types Packs/Day Years Used Date Smoking Tobacco: Never Assessed [place] Safety & Environment Answer Date Rec orded [...] Procedure Name Priority Date/Time Associated Diagnosis Comments SPUTUM CULTURE Routine 08/28/2023 12:30 PM EDT documented in this encounter Results * Sputum culture (08/28/2023 12:30 PM EDT) Gram Stain Result 10-25 Squamous Epithelial Cells Per Low Power Field 08/31/2023 11:37 AM EDT [facility] ([facility]) Gram Stain Result >25 Polys Per Low Power Field 08/31/2023 11:37 AM EDT [facility] ([facility]) Gram Stain Result Many Gram positive cocci in chains 08/31/2023 11:37 AM EDT [facility] ([facility]) Gram Stain Result Moderate Gram negative bacilli 08/31/2023 11:37 AM EDT [facility] ([facility]) Gram Stain Result Rare Yeast 08/31/2023 11:37 AM EDT [facility] ([facility]) Sputum 08/28/2023 12:3 0 PM EDT 08/29/2023 4:28 AM EDT Narrative [facility] ([facility]) - 08/31/2023 11:37 AM EDT Moderate Growth Colonies Consistent with Upper Respiratory Yvonne us Rohan Shin MD LAB MICROBIOLOGY - GENERAL ORDERABLES Final Result [facility] ([facility]) [address] [place], [place] [id number] documented in this encounter Visit Diagnoses Not on filedocumented in this encounter Additional Health Concerns Infection Onset Date Last Indicated Resolved Time CRE 08/29/2023 08/29/2023 documented as of this encounter Care Teams Well Drill Operator Relationship Specialty Start Date End Date Tejas Bryant MD [address] [place] [address] PCP - General Family Medicine 12/29/23 documented as of this encounter
--- OUTSIDE RECORDS SUMMARY | 2024-12-30 15:18 | XMS_ITS | Encounter Summary ---
Author Organization [facility] Address [address] [place] [address] Care Team Providers Care Filler Leaf Cutter Long Name Role Phone Tejas Bryant MD Unavailable Tejas Bryant MD Primary Care Provider [phone] Encounter Details Date Type Department Care Team (Late st Contact Info) Description 05/06/2024 Orders Only [facility] [address] [place] [address] Tejas Bryant MD [address] [place] [address] Social History Tobacco Use Types Packs/Day Years [...] Encounters Date Type Department Care Team (Late st Contact Info) Description 01/20/2025 3:30 PM EDT Office Visit [facility] [address] [place] [phone] Rohan Chapman, DPM [address] [address] 02/01/2025 1:00 PM EDT Office Visit [facility] [address] [place] [phone] Tejas Bryant MD [address] [place] [address] documented as of this encounter Procedures Procedure Name Priority Date/Time Associated Diagnosis Comments DIABETIC RETINOPATHY SCREENING - OU - BOTH EYES Routine 05/04/2024 12:44 PM EST documented in this encounter Results * Diabetic Retinopathy Screening - OU - Both Eyes (05/04/2024 12:44 PM EST) Anatomical Region Laterality Modality Head Other Tejas Bryant MD OPHTH PHOTOGRAPHY Final Result documented in this encounter Visit Diagnoses Not on filedocumented in this encounter Additional Health Concerns Assessment Noted Time PHQ-9 Depression Total Score: 3 01/13/20 24 1:00 PM EDT documented as of this encounter Care Teams Filler Leaf Cutter Long Relationship Specialty Start Date End Date Tejas Bryant MD [address] [place] [phone] PCP - Devoted 05/26/23 05/25/24 Tejas Bryant MD [address] [place] [phone] PCP - General Family Medicine 08/14/23 documented as of this encounter
--- OUTSIDE RECORDS SUMMARY | 2024-12-30 15:18 | XMS_ITS | Encounter Summary ---
Author Organization [facility] Address [address] [place] [address] Care Team Providers Care Bag Machine Operator Helper Name Role Phone Tejas Bryant MD Unavailable Tejsa Bryant MD Primary Care Provider [phone] Encounter Details Date Type Department Care Team [...] EDT Office Visit [facility] [address] [facility] 120 [place] [phone] Rohan Chapman DPZeb [address] [facility] [address] [place] [address] 02/01/2025 1:00 PM EDT Office Visit [facility] [address] [place] [address] Tejas Bryant MD [address] [place] [address] documented as of this encounter Procedures Procedure Name Priority Date/Time Associated Diagnosis Comments CA ECHO DOPPLER COMPLETE 01/16/2024 1:11 PM EDT documented in this encounter Results * CA ECHO DOPPLER COMPLETE (01/16/2024 1:11 PM EDT) Anatomical Region Laterality Modality Other 01/16/2024 1:11 PM EDT Narrative 01/16/2024 1:12 [place] [address] Cardiology Report Signed Patient: ARJUN DIEGO Jr. MR#: [id number] : 1950 Acct:[id number] Age/Sex: 73 / M ADM Date: 01/16/24 Loc: [place] Attending Dr: Ronel Aquino M.D. Ordering Physician: Ronel Aquino M.D. Date of Service: 01/16/24 Procedure(s): CA echo doppler complete Accession Number(s): [id number] cc: Ronel Aquino M.D.; Tejas Bryant M.D. Patient Name: ARJUN DIEGO MR#: [id number] : 1950 Exam Date: 01/16/2024 Ordering Doctor: DR Ronel Aquino M.D. ECHOCARDIOGRAM REPORT PROCEDURE: CA ECHO DOPPLER COMPLETE INDICATIONS: Diastolic heart failure, hypertension, diabetes COMPARISON: None. DESCRIPTION: COMPLETE ECHOCARDIOGRAM Real-time transthoracic echocardiography with 2D, M-mode, spectral and color flow Doppler performed. QUALITY: Technical quality was good. LEFT VENTRICLE: Normal chamber size. Normal left ventricular wall thickness. Normal systolic function. LV EF: Normal left ventricular ejection fraction, (55%). DIASTOLIC: Diastolic function is indeterminate. ATRIAL SEPTUM: Visually appears intact. LEFT ATRIUM: Moderate dilatation. RIGHT ATRIUM: Moderate dilatation. RIGHT VENTRICLE: Mild dilatation. Normal right ventricular systolic function. TRICUSPID VALVE: Normal mobility and thickness. No stenosis with no regurgitation. Unable to assess right-sided pressures due to lack of measurable tricuspid regurgitation. MITRAL VALVE: Normal mobility and thickness. No evidence of mitral valve stenosis. There is no mitral annular calcification. Mild mitral regurgitation. AORTIC VALVE: Normal trileaflet appearance. Mildly calcified aortic valve. Normal leaflet mobility. No evidence of aortic valve stenosis. No aortic regurgitation. AORTIC ROOT: Normal diameter and appearance. Ascending aorta is normal in size. PULMONIC VALVE: Normal thickness and mobility. No stenosis. No regurgitation. PERICARDIUM: No evidence of pericardial effusion. IVC: Collapses with inspirations. PLEURA: CONCLUSION: 1. Normal left ventricular size and systolic function. LVEF is 55%. 2. Mildly dilated right ventricle with normal systolic function. 3. Mild mitral regurgitation. 4. Unable to assess right-sided pressures due to lack of measurable tricuspid regurgitation. 5. No pericardial effusion. Adult Echocardiography Procedure Report Left Ventricle LVEDD (3.7 - 5.6 cm): 4.65 cm LVESD (2.2 - 4.0 cm): 3.55 cm LVIVS thickness (0.6 - 1.2 cm): 1.22 cm LVPW thickness (0.5 - 1.0 cm): 1.01 cm e': 0.07 m/s E - e': 9.83 LVOT Max Gradient: 2.55 mm[Hg] LVOT Area (cm2): 0.80 m/s Peak Velocity (LVOT): 0.80 m/s Mean Velocity (LVOT): 0.51 m/s LVOT Diameter 2.26 cm Left Atrium LA Volume Index (2D A2C): 45.23 ml/m2 Left Atrium Systolic Dimension: 3.99 cm Mitral Valve MV E to A Ratio: 0.68 Mitral Valve A-Wave Peak Velocity: 1.02 m/s Mitral Valve E-Wave Peak Velocity: 0.70 m/s Right Ventricle Aorta AO Root Diam: 3.86 cm Ascending Ao Diam: 3.32 cm Aortic Valve AoV Area (Peak David): 2.40 cm2, 2.40 cm2 AoV Area (VTI): 2.50 cm2, 2.50 cm2 Peak Velocity(Antegrade Flow): 1.33 m/s Peak Gradient(Antegrade Flow): 7.11 mm[Hg] Mean Velocity(Antegrade Flow): 0.88 m/s Mean Gradient(Antegrade Flow): 3.63 mm[Hg] Velocity Time Integral: 30.59 cm Tricuspid Valve Pulmonic Valve Mean Gradient: 1.72 mm[Hg], 1.93 mm[Hg] Mean Velocity: 0.61 m/s, 0.65 m/s Peak Velocity: 0.89 m/s Peak Gradient: 3.08 mm[Hg], 3.31 mm[Hg] Right Atrium Right Atrium Systolic Pressure: 96.05 ml, 96.05 ml Dictated by: Rachael Blackman M.D. on 01/16/2024 at 13:05 Approved by: Rachael Blackman M.D. on 01/16/2024 at 13:11 Dictated By: RACHAEL BLACKMAN Signed By: 01/16/24 131 DD/ 1311 TD/TT: Senior Power Plant Operator: Procedure Note Radiology, Radiologist, MD - 01/16/2024 [place] [address] Cardiology Report Signed Patient: ARJUN DIEGO Jr.MR#: [id number] : 1950cct:[id number] Age/Sex: 73 / MADM Date: 01/16/24 Loc: [place] Attending Dr: Ronel Aquino M.D. Ordering Physician: Ronel Aquino M.D. Date of Service: 01/16/24 Procedure(s): CA echo doppler complete Accession Number(s): [id number] cc: Ronel Aquino M.D.; Tejas Bryant M.D. Patient Name: ARJUN DIEGO MR#: [id number] : 1950 Exam Date: 01/16/2024 Ordering Doctor: DR Ronel Aquino M.D. ECHOCARDIOGRAM REPORT PROCEDURE: CA ECHO DOPPLER COMPLETE INDICATIONS: Diastolic heart failure, hypertension, diabetes COMPARISON: None. DESCRIPTION: COMPLETE ECHOCARDIOGRAM Real-time transthoracic echocardiography with 2D, M-mode, spectral and color flow Dopplerperformed. QUALITY: Technical quality was good. LEFT VENTRICLE: Normal chamber size. Normal left ventricular wall thickness. Normal systolic function. LV EF: Normal left ventricular ejection fraction, (55%). DIASTOLIC: Diastolic function is indeterminate. ATRIAL SEPTUM: Visually appears intact. LEFT ATRIUM: Moderate dilatation. RIGHT ATRIUM: Moderate dilatation. RIGHT VENTRICLE: Mild dilatation. Normal right ventricular systolic function. TRICUSPID VALVE: Normal mobility and thickness. No stenosis with no regurgitation. Unable to assess right-sided pressures due to lack of measurable tricuspid regurgitation. MITRAL VALVE: Normal mobility and thickness. No evidence of mitralvalve stenosis. There is no mitral annular calcification. Mild mitral regurgitation. AORTIC VALVE: Normal trileaflet appearance. Mildly calcified aorticvalve. Normal leaflet mobility. No evidence of aortic valve stenosis. No aortic regurgitation. AORTIC ROOT: Normal diameter and appearance. Ascending aorta is normalin size. PULMONIC VALVE: Normal thickness and mobility. No stenosis. No regurgitation. PERICARDIUM: No evidence of pericardial effusion. IVC: Collapses with inspirations. PLEURA: CONCLUSION: 1. Normal left ventricular size and systolic function. LVEF is 55%. 2. Mildly dilated right ventricle with normal systolic function. 3. Mild mitral regurgitation. 4. Unable to assess right-sided pressures due to lack of measurabletricuspid regurgitation. 5. No pericardial effusion. Adult Echocardiography Procedure Report Left Ventricle LVEDD (3.7 - 5.6 cm): 4.65 cm LVESD (2.2 - 4.0 cm): 3.55 cm LVIVS thickness (0.6 - 1.2 cm): 1.22 cm LVPW thickness (0.5 - 1.0 cm): 1.01 cm e': 0.07 m/s E - e': 9.83 LVOT Max Gradient: 2.55 mm[Hg] LVOT Area (cm2): 0.80 m/s Peak Velocity (LVOT): 0.80 m/s Mean Velocity (LVOT): 0.51 m/s LVOT Diameter 2.26 cm Left Atrium LA Volume Index (2D A2C): 45.23 ml/m2 Left Atrium Systolic Dimension: 3.99 cm Mitral Valve MV E to A Ratio: 0.68 Mitral Valve A-Wave Peak Velocity: 1.02 m/s Mitral Valve E-Wave Peak Velocity: 0.70 m/s Right Ventricle Aorta AO Root Diam: 3.86 cm Ascending Ao Diam: 3.32 cm Aortic Valve AoV Area (Peak David): 2.40 cm2, 2.40 cm2 AoV Area (VTI): 2.50 cm2, 2.50 cm2 Peak Velocity(Antegrade Flow): 1.33 m/s Peak Gradient(Antegrade Flow): 7.11 mm[Hg] Mean Velocity(Antegrade Flow): 0.88 m/s Mean Gradient(Antegrade Flow): 3.63 mm[Hg] Velocity Time Integral: 30.59 cm Tricuspid Valve Pulmonic Valve Mean Gradient: 1.72 mm[Hg], 1.93 mm[Hg] Mean Velocity: 0.61 m/s, 0.65 m/s Peak Velocity: 0.89 m/s Peak Gradient: 3.08 mm[Hg], 3.31 mm[Hg] Right Atrium Right Atrium Systolic Pressure: 96.05 ml, 96.05 ml Dictated by: Rachael Blackman M.D. on 01/16/2024 at 13:05 Approved by: Rachael Blackman M.D. on 01/16/2024 at 13:11 Dictated By: RACHAEL BLACKMAN Signed By:01/16/24 1312 DD/ 1311 TD/TT: Senior Power Plant Operator: Generic External Data Provider [facility] Final Result documented in this encounter Visit Diagnoses Not on filedocumented in this encounter Additional Health Concerns Assessment Noted Time PHQ-9 Depression Total Score: 3 01/13/20 24 1:00 PM EDT documented as of this encounter Care Teams Bag Machine Operator Helper Relationship Specialty Start Date End Date Tejas Bryant MD [address] [place] [address] PCP - Devoted 05/26/23 05/25/24 Tejas Bryant MD [address] [place] [address] PCP - General Family Medicine 08/14/23 documented as of this encounter
--- OUTSIDE RECORDS SUMMARY | 2024-12-30 15:18 | XMS_ITS | Encounter Summary ---
Author Organization [facility] Address [address] [place] [address] Care Team Providers Care Manager File Name Role Phone Tejas Bryant MD Primary Care Provider [phone] Tejas Bryant MD Unavailable Tejas Bryant MD Primary Care Provider [phone] Encounter Details Date Type Department Care Team (Late st Contact Info) Description 02/26/2023 External Result Encounter [facility] External Department Unsolicited Rohan Chapman, TOY [address] [address] Social History Tobacco Use Types Packs/Day Years Used Date Smoking Tobacco: Some Days Cigars Passive Smoke Exposure: Never Smokeless Tobacco: Current Alcohol Use Standard Drinks/Week Comments Not Currently 0 (1 standard drink = 0.6 oz pure alcohol) caffeine yes inserting machine operator: chocolate, coffee Sex and Gender Information Value Date Recorded Sex Assigned at Not on file Legal Sex Male 7:14 PM EDT Gender Identity Not on file Sexual Orientation Not on file COVID-19 Exposure Response Date Recorded In the last 10 days, have yo u been in contact with someone who was confirmed or suspected to have Coronavirus/COVID-19? No / Unsure 02/12/2023 2:07 PM EDT documented as of this encounter Plan of Treatment Upcoming Encounters Date Type Department Care Team (Late st Contact Info) Description 01/20/2025 3:30 PM EDT Office Visit [facility] [address] [facility] 120 [place] [address] Rohan Chapman DPM [address] [facility] [address] [place] [address] 02/01/2025 1:00 PM EDT Office Visit [facility] [address] [place] [address] Tejas Bryant MD [address] [place] [address] documented as of this encounter Procedures Procedure Name Priority Date/Time Associated Diagnosis Comments XR FOOT 1-2 VIEWS LEFT 02/26/2023 3:49 PM EDT documented in this encounter Results * XR foot 1 or 2 views left (02/26/2023 3:49 PM EDT) Anatomical Region Laterality Modality Lower Extremities, Foot Left [facility] 02/26/2023 3:49 PM EDT Impressions 04/15/2023 8:15 AM EST Amputation changes without definitive acute sinister process. Impression dictated by: Georgi Simmons Jr., D.O.02/26/2023 3:51 PM Dictation Location: [place] [address] Transcribed By: [facility] 02/26/23 1551 Dictated By: Georgi Simmons Jr, DO 02/26/23 1549 Signed By: <Electronically signed by Georgi Simmons Jr, DO in OV> 02/26/23 1551 Narrative 04/15/2023 8:[address] 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 FINDINGS: The patient is status post partial amputation of the fifth digit. There is associated soft tissue swelling and vascular calcifications. No plain film evidence of osteomyelitis is noted. Scattered degenerative changes with plantar spurring. XR/XR foot LT 2V Procedure Note Radiology, Radiologist, - 04/15/2023 [facility] [place] [address] [place] [address] XRay Report Signed Patient: Sudeep Diego [facility]#: [id number] : 2Acct:[id number] Age/Sex: 72 / MADM Date: 02/23/23 Loc: Room: [id number]: ADM IN Attending Dr: Geo Thomas DO Copies to: DO Rohan Claudio DPM Ordering Provider: Rohan Chapman DPM Date of Service: 02/26/23 XR/XR foot LT 2V: post op 5thmetatarsa/toeamputation Left foot 2 views Reason for exam: Follow-up postop left fifth metatarsal toe amputation COMPARISON: Left foot 02/23/2023. FINDINGS: The patient is status post partial amputation of the fifthdigit. There is associated soft tissue swelling and vascular calcifications. No plain film evidenceof osteomyelitis is noted. Scattered degenerative changes with plantar spurring. XR/XR foot LT 2V IMPRESSION: Amputation changes without definitive acute sinister process. Impression dictated by: Georgi Simmons Jr., D.O.02/26/2023 3:51 PM Dictation Location: [place] [address] Transcribed By: [facility] 02/26/23 0285 Dictated By: Georgi Simmons Jr, DO 02/26/23 1549 Signed By: <Electronically signed by Georgi Simmons Jr, DO inOV> 02/26/23 1551 us Rohan Chapman DPM IMG XR PROCEDURES Final Res ult documented in this encounter Visit Diagnoses Not on filedocumented in this encounter Care Teams Manager File Relationship Specialty Start Date End Date Tejas Bryant MD PCP - General Cardiology 11/07/22 08/13/23 Tejas Bryant MD [address] [place] [address] PCP - Devoted 05/26/23 05/25/24 Tejas Bryant MD [address] [place] [address] PCP - General Family Medicine 08/14/23 documented as of this encounter
--- OUTSIDE RECORDS SUMMARY | 2024-12-30 15:18 | XMS_ITS | Encounter Summary ---
Author Organization [facility] Address [address] [place] [address] Care Team Providers Care Psychic Reader Name Role Phone Tejas Bryant MD Primary Care Provider [phone] Encounter Details Date Type Department Care Team (Late st Contact Info) Description 09/09/2023 Lab Requisition [facility] [address] [place] [phone] Rohan Shin MD [address] [place], [place] [phone] Social History Tobacco Use Types Packs/Day Years [...] Priority Date/Time Associated Diagnosis Comments CBC Routine 09/10/2023 4:30 AM EDT PHOSPHORUS Routine 09/10/2023 4:30 AM EDT MAGNESIUM Routine 09/10/2023 4:30 AM EDT BASIC METABOLIC PANEL Routine 09/10/2023 4:30 AM EDT documented in this encounter Results * (ABNORMAL) CBC (09/10/2023 4:30 AM EDT) Auto WBC 12.21(H) 4.00 - 10.60 10*3/uL 09/10/2023 5:44 AM EDT [facility] ([facility]) RBC 3.09(L) 4.20 - 5.70 10*6/uL 09/10/2023 5:44 AM EDT [facility] ([facility]) Hemoglobin 9.2(L) 13.0 - 17.0 g/dL 09/10/2023 5:44 AM EDT [facility] ([facility]) Hematocrit 26.9(L) 39.0 - 55.0 % 09/10/2023 5:44 AM EDT [facility] ([facility]) MCV 87.1 82.0 - 98.0 fL 09/10/2023 5:44 AM EDT [facility] ([facility]) MCH 29.8 27.0 - 33.0 pg 09/10/2023 5:44 AM EDT [facility] ([facility]) MCHC 34.2 32.0 - 35.0 g/dL 09/10/2023 5:44 AM EDT [facility] ([facility]) RDW 15.9(H) 11.5 - 15.0 % 09/10/2023 5:44 AM EDT [facility] ([facility]) Platelets 479(H) 150 - 400 10*3/uL 09/10/2023 5:44 AM EDT [facility] ([facility]) Blood Venous blood specimen / Unknown 09/10/2023 4:30 AM EDT 09/10/2023 5:31 AM EDT us Rohan Shin MD LAB BLOOD ORDERABLES Final Result [facility] ([facility]) [address] [place] [address] * (ABNORMAL) Phosphorus (09/10/2023 4:30 AM EDT) Phosphorus 5.5(H) 2.5 - 5.0 mg/dL 09/10/2023 6:11 AM EDT [facility] ([facility]) Blood Venous blood specimen / Unknown 09/10/2023 4:30 AM EDT 09/10/2023 5:31 AM EDT Rohan Shin MD LAB BLOOD ORDERABLES Final Result Performing Organization Address City/[facility]/ZIP Co de Phone Number [facility]) [address] [place] [address] * Magnesium (09/10/2023 4:30 AM EDT) [facility] Magnesium 2.4 1.9 - 2.7 mg/dL 09/10/2023 6:11 AM EDT [facility] ([facility]) Blood Venous blood specimen / Unknown 09/10/2023 4:30 AM EDT 09/10/2023 5:31 AM EDT us Rohan Shin MD LAB BLOOD ORDERABLES Final Result Performing Organization Address [facility] de Phone Number [facility]) [address] [place] [phone] * (ABNORMAL) Basic metabolic panel (09/10/2023 4:30 AM EDT) Pathologist [facility] Sodium 134(L) 136 - 145 mmol/L 09/10/2023 6:11 AM EDT [facility] ([facility]) Potassium 3.6 3.5 - 5.1 mmol/L 09/10/2023 6:11 AM EDT [facility] ([facility]) Chloride 101 98 - 107 mmol/L 09/10/2023 6:11 AM EDT [facility] ([facility]) CO2 26 21 - 31 mmol/L 09/10/2023 6:11 AM EDT [facility] ([facility]) BUN 83(H) 7 - 25 mg/dL 09/10/2023 6:11 AM EDT [facility] ([facility]) Creatinine 1.22 0.70 - 1.30 mg/dL 09/10/2023 6:11 AM EDT [facility] ([facility]) Glucose 56(L) 70 - 100 mg/dL 09/10/2023 6:11 AM EDT [facility] ([facility]) Calcium 8.1(L) 8.6 - 10.3 mg/dL 09/10/2023 6:11 AM EDT [facility] ([facility]) Anion Gap 11 7 - 20 mmol/L 09/10/2023 6:11 AM EDT [facility] ([facility]) eGFR 63.4 >60.0 mL/min/1. 73m*2 09/10/2023 6:11 AM EDT [facility] ([facility]) Comment:[facility] s estimated glomerular filtration rate [...] any one group of individuals. BUN/Creatinine Ratio 68.0 08/24 6:11 AM EDT [facility] ([facility]) Blood Venous blood specimen / Unknown 09/10/2023 4:30 AM EDT 09/10/2023 5:31 AM EDT us Rohan Shin MD LAB BLOOD ORDERABLES Final Result [facility] ([facility]) [address] [place] [address] documented in this encounter Visit Diagnoses Not on filedocumented in this encounter Additional Health Concerns Infection Onset Date Last Indicated Resolved Time CRE 08/29/2023 08/29/2023 documented as of this encounter Care Teams Psychic Reader Relationship Specialty Start Date End Date Tejas Bryant MD [address] [place] [address] PCP - General Family Medicine 12/29/23 documented as of this encounter
--- OUTSIDE RECORDS SUMMARY | 2024-12-30 15:18 | XMS_ITS | Encounter Summary ---
Author Organization [facility] Address [address] [place] [address] Care Team Providers Care Credit Administration Officer Name Role Phone Tejas Bryant MD Primary Care Provider [phone] Encounter Details Date Type Department Care Team (Late st Contact Info) Description 09/21/2023 Lab Requisition [facility] [address] [place] [phone] Rohan Shin MD [address] [place], [place] [id number] Respiratory failure, unspecified, unspecified whether with hypoxia or hypercapnia (CMS/HCC) Social History Tobacco Use Types Packs/Day Years Used Date Smoking Tobacco: Never Assessed [place] Safety & Environment Answer Date Rec orded [...] Priority Date/Time Associated Diagnosis Comments CBC Routine 09/21/2023 4:30 AM EDT PHOSPHORUS Routine 09/21/2023 4:30 AM EDT MAGNESIUM Routine 09/21/2023 4:30 AM EDT BASIC METABOLIC PANEL Routine 09/21/2023 4:30 AM EDT documented in this encounter Results * (ABNORMAL) Phosphorus (09/21/2023 4:30 AM EDT) [facility] Phosphorus 5.1(H) 2.5 - 5.0 mg/dL 09/21/2023 6:13 AM EDT [facility] ([facility]) Blood Venous blood specimen / Unknown Venipuncture / Unknown 09/21/2023 4:30 AM EDT 09/21/2023 5:38 AM EDT Rohan Shin MD LAB BLOOD ORDERABLES Final Result Performing Organization Address City/[facility]/ZIP Co de Phone Number [facility]) [address] [place] [address] * (ABNORMAL) Magnesium (09/21/2023 4:30 AM EDT) [facility] Magnesium 1.8(L) 1.9 - 2.7 mg/dL 09/21/2023 6:13 AM EDT [facility]) Blood Venous blood specimen / Unknown Venipuncture / Unknown 09/21/2023 4:30 AM EDT 09/21/2023 5:38 AM EDT Rohan Shin MD LAB BLOOD ORDERABLES Final Result [facility]) [address] [place] [address] * (ABNORMAL) CBC (09/21/2023 4:30 AM EDT) [facility] Auto WBC 9.80 4.00 - 10.60 10*3/uL 09/21/2023 5:52 AM EDT [facility] ([facility]) RBC 3.28(L) 4.20 - 5.70 10*6/uL 09/21/2023 5:52 AM EDT [facility] ([facility]) Hemoglobin 9.5(L) 13.0 - 17.0 g/dL 09/21/2023 5:52 AM EDT [facility] ([facility]) Hematocrit 29.4(L) 39.0 - 55.0 % 09/21/2023 5:52 AM EDT [facility] ([facility]) MCV 89.6 82.0 - 98.0 fL 09/21/2023 5:52 AM EDT [facility] ([facility]) MCH 29.0 27.0 - 33.0 pg 09/21/2023 5:52 AM EDT [facility] ([facility]) MCHC 32.3 32.0 - 35.0 g/dL 09/21/2023 5:52 AM EDT [facility] ([facility]) RDW 16.4(H) 11.5 - 15.0 % 09/21/2023 5:52 AM EDT [facility] ([facility]) Platelets 452(H) 150 - 400 10*3/uL 09/21/2023 5:52 AM EDT [facility] ([facility]) Blood Venous blood specimen / Unknown Venipuncture / Unknown 09/21/2023 4:30 AM EDT 09/21/2023 5:38 AM EDT us Rohan Shin MD LAB BLOOD ORDERABLES Final Result [facility] ([facility]) [address] [place] [address] * (ABNORMAL) Basic metabolic panel (09/21/2023 4:30 AM EDT) Sodium 137 136 - 145 mmol/L 09/21/2023 6:13 AM EDT [facility] ([facility]) Potassium 4.6 3.5 - 5.1 mmol/L 09/21/2023 6:13 AM EDT [facility] ([facility]) Chloride 110(H) 98 - 107 mmol/L 09/21/2023 6:13 AM EDT [facility] ([facility]) CO2 21 21 - 31 mmol/L 09/21/2023 6:13 AM EDT [facility] ([facility]) BUN 30(H) 7 - 25 mg/dL 09/21/2023 6:13 AM EDT [facility] ([facility]) Creatinine 1.04 0.70 - 1.30 mg/dL 09/21/2023 6:13 AM EDT [facility] ([facility]) Glucose 78 70 - 100 mg/dL 09/21/2023 6:13 AM EDT [facility] ([facility]) Calcium 8.1(L) 8.6 - 10.3 mg/dL 09/21/2023 6:13 AM EDT [facility] ([facility]) Anion Gap 11 7 - 20 mmol/L 09/21/2023 6:13 AM EDT [facility] ([facility]) eGFR 76.8 >60.0 mL/min/1. 73m*2 09/21/2023 6:13 AM EDT [facility] ([facility]) Comment:[facility] s estimated glomerular filtration rate (eGFR) [...] any one group of individuals. BUN/Creatinine Ratio 28.8 08/25 6:13 AM EDT [facility] ([facility]) Blood Venous blood specimen / Unknown Venipuncture / Unknown 09/21/2023 4:30 AM EDT 09/21/2023 5:38 AM EDT us Rohan Shin MD LAB BLOOD ORDERABLES Final Result [facility] ([facility]) [address] [place] [address] documented in this encounter Visit Diagnoses Diagnosis Respiratory failure, unspecified, unspecified whether with hypoxia or hypercapnia (CMS/HCC) documented in this encounter Additional Health Concerns Infection Onset Date Last Indicated Resolved Time CRE 08/29/2023 08/29/2023 documented as of this encounter Care Teams Credit Administration Officer Relationship Specialty Start Date End Date Tejas Bryant MD [address] [place] [address] PCP - General Family Medicine 12/29/23 documented as of this encounter
--- OUTSIDE RECORDS SUMMARY | 2024-12-30 15:18 | XMS_ITS | Encounter Summary ---
Author Organization [facility] Address [address] [place] [address] Care Team Providers Care Junction Maker Name Role Phone Tejas Bryant MD Primary Care Provider [phone] Encounter Details Date Type Department Care Team (Late st Contact Info) Description 08/24/2023 Lab Requisition [facility] [address] [place] [phone] Rohan Shin MD [address] [place], [place] [phone] Social History Tobacco Use Types Packs/Day Years [...] Name Priority Date/Time Associated Diagnosis Comments CBC WITH AUTO DIFFERENTIAL Routine 08/24/2023 11:30 AM EDT MANUAL DIFFERENTIAL Routine 08/24/2023 1 1:30 AM EDT CBC AND DIFFERENTIAL Routine 08/24/2023 11:30 AM EDT PREALBUMIN Routine 08/24/2023 11:30 AM EDT PHOSPHORUS Routine 08/24/2023 11:30 AM EDT MAGNESIUM Routine 08/24/2023 11:30 AM EDT COMPREHENSIVE METABOLIC PANEL Routine 08/24/2023 11:30 AM EDT documented in this encounter Results * (ABNORMAL) Manual Differential (08/24/2023 11:30 AM EDT) Immature Granulocytes % 0.6 0.0 - 1.0 % 08/24/2023 1:12 PM EDT [facility] ([facility]) Neutrophils Absolute 9.4(H) 1.6 - 7.6 10*3/uL 08/24/2023 1:12 PM EDT [facility] ([facility]) Lymphocytes Absolute 1.83 1.20 - 4.00 10*3/uL 08/24/2023 1:12 PM EDT [facility] ([facility]) Monocytes Absolute 1.77(H) 0.10 - 1.00 10*3/uL 08/24/2023 1:12 PM EDT [facility] ([facility]) Eosinophils Absolute 0.30 0.00 - 0.50 10*3/uL 08/24/2023 1:12 PM EDT [facility] ([facility]) Basophils Absolute 0.13 0.00 - 0.20 10*3/uL 08/24/2023 1:12 PM EDT [facility] ([facility]) Neutrophils % 69.5 40.0 - 72.0 % 08/24/2023 1:12 PM EDT [facility] ([facility]) Lymphocytes % 13.6(L) 20.0 - 45.0 % 08/24/2023 1:12 PM EDT [facility] ([facility]) Monocytes % 13.1(H) 5.0 - 12.0 % 08/24/2023 1:12 PM EDT [facility] ([facility]) Eosinophils % 2.2 0.0 - 6.0 % 08/24/2023 1:12 PM EDT [facility] ([facility]) Basophils % 1.0 0.0 - 1.0 % 08/24/2023 1:12 PM EDT [facility] ([facility]) Immature Granulocytes Absolute 0.08 0.00 - 0.20 10*3/uL 08/24/2023 1:12 PM EDT [facility] ([facility]) Blood Venous blood specimen / Unknown Venipuncture / Unknown 08/24/2023 11:30 AM EDT 08/24/2023 11:58 AM EDT us Rohan Shin MD LAB BLOOD ORDERABLES Final Result [facility] ([facility]) [address] [place] [address] * (ABNORMAL) CBC auto differential (08/24/2023 11:30 AM EDT) Auto WBC 13.48(H) 4.00 - 10.60 10*3/uL 08/24/2023 12:04 PM EDT [facility] ([facility]) RBC 3.28(L) 4.20 - 5.70 10*6/uL 08/24/2023 12:04 PM EDT [facility] ([facility]) Hemoglobin 9.6(L) 13.0 - 17.0 g/dL 08/24/2023 12:04 PM EDT [facility] ([facility]) Hematocrit 29.3(L) 39.0 - 55.0 % 08/24/2023 12:04 PM EDT [facility] ([facility]) MCV 89.3 82.0 - 98.0 fL 08/24/2023 12:04 PM EDT [facility] ([facility]) MCH 29.3 27.0 - 33.0 pg 08/24/2023 12:04 PM EDT [facility] ([facility]) MCHC 32.8 32.0 - 35.0 g/dL 08/24/2023 12:04 PM EDT [facility] ([facility]) RDW 15.7(H) 11.5 - 15.0 % 08/24/2023 12:04 PM EDT [facility] ([facility]) Platelets 909(H) 150 - 400 10*3/uL 08/24/2023 12:04 PM EDT [facility] ([facility]) nRBC % 0.0 0 % 08/24/2023 12:04 PM EDT [facility]) Blood Venous blood specimen / Unknown Venipuncture / Unknown 08/24/2023 11:30 AM EDT 08/24/2023 11:58 AM EDT Rohan Shin MD LAB BLOOD ORDERABLES Final Result [facility]) [address] [place] [address] * Phosphorus (08/24/2023 11:30 AM EDT) Phosphorus 3.1 2.5 - 5.0 mg/dL 08/24/2023 12:22 PM EDT [facility]) Blood Venous blood specimen / Unknown Venipuncture / Unknown 08/24/2023 11:30 AM EDT 08/24/2023 11:58 AM EDT Rohan Shin MD LAB BLOOD ORDERABLES Final Result Performing Organization Address City/[facility]/ZIP Co de Phone Number [facility]) [address] [place] [phone] * Magnesium (08/24/2023 11:30 AM EDT) Magnesium 2.4 1.9 - 2.7 mg/dL 08/24/2023 12:22 PM EDT [facility]) Blood Venous blood specimen / Unknown Venipuncture / Unknown 08/24/2023 11:30 AM EDT 08/24/2023 11:58 AM EDT Rohan Shin MD LAB BLOOD ORDERABLES Final Result [facility]) [address] [place] [address] * Prealbumin (08/24/2023 11:30 AM EDT) Prealbumin 12.2 mg/dL 08/24/2023 12:22 PM EDT [facility] ([facility]) Blood Venous blood specimen / Unknown Venipuncture / Unknown 08/24/2023 11:30 AM EDT 08/24/2023 11:58 AM EDT us Rohan Shin MD LAB BLOOD ORDERABLES Final Result [facility] ([facility]) [address] [place] [address] * (ABNORMAL) Comprehensive metabolic panel (08/24/2023 11:30 AM EDT) Sodium 132(L) 136 - 145 mmol/L 08/24/2023 12:22 PM EDT [facility] ([facility]) Potassium 3.5 3.5 - 5.1 mmol/L 08/24/2023 12:22 PM EDT [facility] ([facility]) Chloride 96(L) 98 - 107 mmol/L 08/24/2023 12:22 PM EDT [facility] ([facility]) CO2 29 21 - 31 mmol/L 08/24/2023 12:22 PM EDT [facility] ([facility]) Anion Gap 11 7 - 20 mmol/L 08/24/2023 12:22 PM EDT [facility] ([facility]) BUN 38(H) 7 - 25 mg/dL 08/24/2023 12:22 PM EDT [facility] ([facility]) Creatinine 2.47(H) 0.70 - 1.30 mg/dL 08/24/2023 12:22 PM EDT [facility] ([facility]) BUN/Creatinine Ratio 15.4 07/26 12:22 PM EDT [facility] ([facility]) Glucose 133(H) 70 - 100 mg/dL 08/24/2023 12:22 PM EDT [facility] ([facility]) Calcium 8.7 8.6 - 10.3 mg/dL 08/24/2023 12:22 PM EDT [facility] ([facility]) AST 15 13 - 39 U/L 08/24/2023 12:22 PM EDT [facility] ([facility]) ALT (SGPT) 10 7 - 52 U/L 08/24/2023 12:22 PM EDT [facility] ([facility]) Alkaline Phosphatase 100 34 - 104 U/L 08/24/2023 12:22 PM EDT [facility] ([facility]) Total Protein 6.5 6.0 - 8.3 g/dL 08/24/2023 12:22 PM EDT [facility] ([facility]) Albumin 2.6(L) 3.5 - 5.7 g/dL 08/24/2023 12:22 PM EDT [facility] ([facility]) Total Bilirubin 0.3 0.3 - 1.0 mg/dL 08/24/2023 12:22 PM T [facility] ([facility]) eGFR 27.2(L) >60.0 mL/min/1. 73m*2 08/24/2023 12:22 PM EDT [facility] ([facility]) Comment:[facility] s estimated glomerular filtration rate [...] blood specimen / Unknown Venipuncture / Unknown 08/24/2023 11:30 AM EDT 08/24/2023 11:58 AM EDT us Rohan Shin MD LAB BLOOD ORDERABLES Final Result [facility] ([facility]) [address] [place] [address] documented in this encounter Visit Diagnoses Not on filedocumented in this encounter Additional Health Concerns Infection Onset Date Last Indicated Resolved Time CRE 08/29/2023 08/29/2023 documented as of this encounter Care Teams Junction Maker Relationship Specialty Start Date End Date Tejas Bryant MD [address] [place] [address] PCP - General Family Medicine 12/29/23 documented as of this encounter
--- OUTSIDE RECORDS SUMMARY | 2024-12-30 15:18 | XMS_ITS | Encounter Summary ---
Author Organization [facility] Address [address] [place] [address] Care Team Providers Care Customer Consulting Manager Name Role Phone Tejas Bryant MD Primary Care Provider [phone] Encounter Details Date Type Department Care Team (Late Contact Info) Description 06/14/2024 Orders Only [facility] [address] [place] [phone] Jony Yanes MD [address] [place], [place] [phone] Social History Tobacco Use Types Packs/Day Years [...] EDT Office Visit [facility] [address] [facility] [address] [place] [address] Rohan Chapman DPM [address] [facility] 5 [place] [address] 02/01/2025 1:00 PM EDT Office Visit [facility] [address] [place] [phone] Tejas Bryant MD [address] [place] [address] documented as of this encounter Procedures Procedure Name Priority Date/Time Associated Diagnosis Comments DIABETES EYE EXAM Routine 06/14/2024 2:34 PM EST documented in this encounter Results * Diabetes Eye Exam (06/14/2024 2:34 PM EST) Jony Yanes MD HEALTH MAINTENANCE Final Resu lt documented in this encounter Visit Diagnoses Not on filedocumented in this encounter Additional Health Concerns Assessment Noted Time PHQ-9 Depression Total Score: 3 01/13/20 1:00 PM EDT documented as of this encounter Care Teams Customer Consulting Manager Relationship Specialty Start Date End Date Tejas Bryant MD [address] [place] [address] PCP - General Family Medicine 08/14/23 documented as of this encounter
--- OUTSIDE RECORDS SUMMARY | 2024-12-30 15:18 | XMS_ITS | Encounter Summary ---
Author Organization [facility] Address [address] [place] [address] Care Team Providers Care Workplace Trainer And Assessor Name Role Phone Tejas Bryant MD Primary Care Provider [phone] Tejas Bryant MD Unavailable Tejas Bryant MD Primary Care Provider [phone] Encounter Details Date Type Department Care Team (Late st Contact Info) Description 03/25/2023 External Result Encounter [facility] External Department Unsolicited Rohan Chapman DPM [address] [address] Social History Tobacco Use Types Packs/Day Years Used Date Smoking Tobacco: Some Days Cigars Passive Smoke Exposure: Never Smokeless Tobacco: Current Alcohol Use Standard Drinks/Week Comments Not Currently 0 (1 standard drink = 0.6 oz pure alcohol) caffeine yes floor covering printer: 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, 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 Sex and Gender Information Value Date Recorded Sex Assigned at Not on file Legal Sex Male 7:14 PM EDT Gender Identity Not on file Sexual Orientation Not on file documented as of this encounter Plan of Treatment Upcoming Encounters Date Type Department Care Team (Late Contact Info) Description 01/20/2025 3:30 PM EDT Office Visit [facility] 112 [facility] [address] [place] [address] Rohan Chapman DPM 3[address] [facility] 5 [place] [address] 02/01/2025 1:00 PM EDT Office Visit [facility] [address] [place] [address] Tejas Bryant MD [address] [place] [phone] documented as of this encounter Procedures Procedure Name Priority Date/Time Associated Diagnosis Comments MR FOOT LEFT WO IV CONTRAST 03/25/2023 4:43 PM EDT documented in this encounter Results * MR foot left wo IV contrast (03/25/2023 4:43 PM EDT) Anatomical Region Laterality Modality Lower Extremities, Foot Left Magnetic Resonance 03/25/2023 4:43 PM EDT Narrative 04/15/2023 8:15 AM [facility] [place] [address] MRI Report Signed Patient: Sudeep Diego JR MR#: [id number] : 1950 Acct:[id number] Age/Sex: 72 / M ADM Date: 03/25/23 Loc: [facility] Room: Type: [facility] Attending Dr: Rohan Chapman DPM Copies to: Rohan Chapman DPM Ordering Provider: Rohan Chapman DPM Date of Service: 03/25/23 MR/MR foot LT wo con: e10.42, m86.172 MRI left forefoot Without contrast TECHNIQUE: Multiplanar T1 and T2-weighted imaging of the foot obtained without contrast. HISTORY: Recent fifth ray amputation with pseudomonas infection. COMPARISON:Plain film imaging 02/26/2023 SKIN MARKER: None BONY ALIGNMENT: Stable BONE INFILTRATION:Potential mild infiltrative changes of the fifth metatarsal amputation site. BONY LESION: No focal bony lesion. BONE MARROW EDEMA: Bone marrow edematous changes of the residual fifth metatarsal. TENDONS: Intact INTRINSIC MUSCLES: Mild potential neuropathic changes of the musculature. PLANTAR PLATE: Intact PADILLA'S NEUROMA: None OSTEOMYELITIS there may be presence of minimal T1 low signal changes of may correspond with subtle osteomyelitis at the amputation site. No significant cortical destruction. SOFT TISSUES: Soft tissue inflammatory changes near the amputation site. No discrete fluid collection. MR/MR foot LT wo con Impression: Bone marrow edematous changes of the residual fifth metatarsal with findings which may suggest subtle osteomyelitis of the amputation site. No cortical destruction identified. There is adjacent inflammatory soft tissue changes without distinct fluid collection. Remaining foot unremarkable. Impression dictated by: Dhruv Conroy M.D.03/25/2023 4:53 PM Dictation Location: [place] [address] Transcribed By: [facility] 03/25/231652 Dictated By: Dhruv Conroy DO 03/25/23 164 Signed By: <Electronically signed by Dhruv Conroy DO in OV> 03/25/231652 Procedure Note Radiology, Radiologist, - 04/15/2023 [facility] Main [place] [address] [place] [address] MRI Report Signed Patient: Sudeep Diego [facility]#: [id number] : 1950cct:[id number] Age/Sex: 72 / MADM Date: 03/25/23 Loc: [facility] Room:Type: [facility] Attending Dr: Rohan Chapman DPM Copies to: Rohan Chapman DPM Ordering Provider: Rohan Chapman DPM Date of Service: 03/25/23 MR/MR foot LT wo con: e10.42, m86.172 MRI left forefoot Without contrast TECHNIQUE: Multiplanar T1 and T2-weighted imaging of the foot obtainedwithout contrast. HISTORY: Recent fifth ray amputation with pseudomonas infection. COMPARISON:Plain film imaging 02/26/2023 SKIN MARKER: None BONY ALIGNMENT: Stable BONE INFILTRATION:Potential mild infiltrative changes of the fifthmetatarsal amputation site. BONY LESION: No focal bony lesion. BONE MARROW EDEMA: Bone marrow edematous changes of the residual fifthmetatarsal. TENDONS: Intact INTRINSIC MUSCLES: Mild potential neuropathic changes of the musculature. PLANTAR PLATE: Intact PADILLA'S NEUROMA: None OSTEOMYELITIS there may be presence of minimal T1 low signal changes ofmay correspond with subtle osteomyelitis at the amputation site. No significant corticaldestruction. SOFT TISSUES: Soft tissue inflammatory changes near the amputation site.No discrete fluid collection. MR/MR foot LT wo con Impression: Bone marrow edematous changes of the residual fifth metatarsalwith findings which may suggest subtle osteomyelitis of the amputation site. No corticaldestruction identified. There is adjacent inflammatory soft tissue changes without distinct fluidcollection. Remaining foot unremarkable. Impression dictated by: Dhruv Conroy M.D.03/25/2023 4:53 PM Dictation Location: [facility] Transcribed By: [facility] 03/25/231652 Dictated By: Dhruv Conroy DO 03/25/23 164 Signed By: <Electronically signed by Dhruv Conroy DO in OV> 03/25/231652 Rohan Chapman DPZeb IMG MRI PROCEDURES Final Re sult documented in this encounter Visit Diagnoses Not on filedocumented in this encounter Care Teams Workplace Trainer And Assessor Relationship Specialty Start Date End Date Tejas Bryant MD PCP - General Cardiology 11/07/22 08/13/23 Tejas Bryant MD [address] [place] [phone] PCP - Devoted 05/26/23 05/25/24 Tejas Bryant MD [address] [place] [address] PCP - General Family Medicine 08/14/23 documented as of this encounter
--- OUTSIDE RECORDS SUMMARY | 2024-12-30 15:18 | XMS_ITS | Encounter Summary ---
Author Organization [facility] Address [address] [place] [address] Care Team Providers Care Toolsmith Name Role Phone Tejas Bryant MD Primary Care Provider [phone] Tejas Bryant MD Unavailable Tejas Bryant MD Primary Care Provider Encounter Details Date Type Department Care Team (Late st Contact Info) Description 03/13/2023 Abstract [facility] 112 [facility] 120 [place] [phone] Rohan Chapman DPM 3[address] [facility] 5 [place] [address] Social History Tobacco Use Types Packs/Day Years Used Date Smoking Tobacco: Some Days Cigars Passive Smoke Exposure: Never Smokeless Tobacco: Current Alcohol Use Standard Drinks/Week Comments Not Currently 0 (1 standard drink = 0.6 oz pure alcohol) caffeine yes documentation engineer: chocolate, coffee Sex and Gender Information Value [...] Office Visit [facility] 112 [facility] 120 [place] [phone] Rohan Chapman, DPZeb 3006 [facility] 5 [place] [address] 02/01/2025 1:00 PM EDT Office Visit [facility] [address] [place] [phone] Tejas Bryant MD [address] [place] [address] documented as of this encounter Visit Diagnoses Not on filedocumented in this encounter Care Teams Toolsmith Relationship Specialty Start Date End Date Tejas Bryant MD PCP - General Cardiology 11/07/22 08/13/23 Tejas Bryant MD [address] [place] [phone] PCP - Devoted 05/26/23 05/25/24 Tejas Bryant MD [address] [place] [phone] PCP - General Family Medicine 08/14/23 documented as of this encounter
--- OUTSIDE RECORDS SUMMARY | 2024-12-30 15:18 | XMS_ITS | Encounter Summary ---
Author Organization [facility] Address [address] [place] [address] Care Team Providers Care Cane Loader Name Role Phone Tejsa Bryant MD Primary Care Provider [phone] Encounter Details Date Type Department Care Team (Late st Contact Info) Description 08/28/2023 Lab Requisition [facility] Lab [address] [place] [id number] Rohan Shin MD [address] [place] [address] Social History Tobacco Use Types Packs/Day Years Used Date Smoking Tobacco: Never Assessed [place] Safety & Environment Answer Date Rec orded [...] Priority Date/Time Associated Diagnosis Comments CBC Routine 08/29/2023 4:00 AM EDT PHOSPHORUS Routine 08/29/2023 4:00 AM EDT MAGNESIUM Routine 08/29/2023 4:00 AM EDT BASIC METABOLIC PANEL Routine 08/29/2023 4:00 AM EDT documented in this encounter Results * Magnesium (08/29/2023 4:00 AM EDT) Pathologist [facility] Magnesium 2.2 1.9 - 2.7 mg/dL 08/29/2023 4:55 AM EDT [facility] ([facility]) Blood Venous blood specimen / Unknown 08/29/2023 4:00 AM EDT 08/29/2023 4:21 AM EDT Rohan Shin MD LAB BLOOD ORDERABLES Final Result [facility]) [address] [place] [address] * Phosphorus (08/29/2023 4:00 AM EDT) Pathologist [facility] Phosphorus 2.6 2.5 - 5.0 mg/dL 08/29/2023 4:55 AM EDT [facility] ([facility]) Blood Venous blood specimen / Unknown 08/29/2023 4:00 AM EDT 08/29/2023 4:21 AM EDT Rohan Shin MD LAB BLOOD ORDERABLES Final Result Performing Organization Address City/[facility]/ZIP Co de Phone Number [facility]) [address] [place] [address] * (ABNORMAL) CBC (08/29/2023 4:00 AM EDT) Pathologist [facility] Auto WBC 34.28(H) 4.00 - 10.60 10*3/uL 08/29/2023 4:31 AM EDT [facility]) RBC 3.25(L) 4.20 - 5.70 10*6/uL 08/29/2023 4:31 AM EDT [facility] ([facility]) Hemoglobin 9.4(L) 13.0 - 17.0 g/dL 08/29/2023 4:31 AM EDT [facility]) Hematocrit 28.9(L) 39.0 - 55.0 % 08/29/2023 4:31 AM EDT [facility] ([facility]) MCV 88.9 82.0 - 98.0 fL 08/29/2023 4:31 AM EDT [facility] ([facility]) MCH 28.9 27.0 - 33.0 pg 08/29/2023 4:31 AM EDT [facility] ([facility]) MCHC 32.5 32.0 - 35.0 g/dL 08/29/2023 4:31 AM EDT [facility] ([facility]) RDW 16.3(H) 11.5 - 15.0 % 08/29/2023 4:31 AM EDT [facility] ([facility]) Platelets 742(H) 150 - 400 10*3/uL 08/29/2023 4:31 AM EDT [facility] ([facility]) Blood Venous blood specimen / Unknown 08/29/2023 4:00 AM EDT 08/29/2023 4:21 AM EDT us Rohan Shin MD LAB BLOOD ORDERABLES Final Result [facility] ([facility]) [address] [place], [place] [id number] * (ABNORMAL) Basic metabolic panel (08/29/2023 4:00 AM EDT) Sodium 139 136 - 145 mmol/L 08/29/2023 4:55 AM EDT [facility] ([facility]) Potassium 3.6 3.5 - 5.1 mmol/L 08/29/2023 4:55 AM EDT [facility] ([facility]) Chloride 101 98 - 107 mmol/L 08/29/2023 4:55 AM EDT [facility] ([facility]) CO2 26 21 - 31 mmol/L 08/29/2023 4:55 AM EDT [facility] ([facility]) BUN 59(H) 7 - 25 mg/dL 08/29/2023 4:55 AM EDT [facility] ([facility]) Creatinine 4.77(H) 0.70 - 1.30 mg/dL 08/29/2023 4:55 AM EDT [facility] ([facility]) Glucose 131(H) 70 - 100 mg/dL 08/29/2023 4:55 AM EDT [facility] ([facility]) Calcium 8.7 8.6 - 10.3 mg/dL 08/29/2023 4:55 AM EDT [facility] ([facility]) Anion Gap 16 7 - 20 mmol/L 08/29/2023 4:55 AM EDT [facility] ([facility]) eGFR 12.3(L) >60.0 mL/min/1. 73m*2 08/29/2023 4:55 AM EDT [facility] ([facility]) Comment:[facility] s estimated glomerular filtration rate [...] any one group of individuals. BUN/Creatinine Ratio 12.4 09/2023 4:55 AM EDT [facility] ([facility]) Blood Venous blood specimen / Unknown 08/29/2023 4:00 AM EDT 08/29/2023 4:21 AM EDT us Rohan Shin MD LAB BLOOD ORDERABLES Final Result [facility] ([facility]) [address] [place] [address] documented in this encounter Visit Diagnoses Not on filedocumented in this encounter Additional Health Concerns Infection Onset Date Last Indicated Resolved Time CRE 08/29/2023 08/29/2023 documented as of this encounter Care Teams Cane Loader Relationship Specialty Start Date End Date Tejas Bryant MD [facility] [place] [address] PCP - General Family Medicine 12/29/23 documented as of this encounter
--- OUTSIDE RECORDS SUMMARY | 2024-12-30 15:18 | XMS_ITS | Encounter Summary ---
Author Organization [facility] Address [address] [place] [address] Care Team Providers Care Laboratory Apparatus Glass Blower Name Role Phone Tejas Bryant MD Unavailable Tejas Bryant MD Primary Care Provider [phone] Encounter Details Date Type Department Care Team (Late Contact Info) Description 05/05/2024 Clinisync Result Encounter [facility] External Department Unsolicited [...] Office Visit [facility] [address] [facility] [address] [place] [phone] Rohan Chapman DPZeb [address] [facility] [address] [place] [address] 02/01/2025 1:00 PM EDT Office Visit [facility] [address] [place] [address] Tejas Bryant MD [address] [place] [address] documented as of this encounter Procedures Procedure Name Priority Date/Time Associated Diagnosis Comments CT CHEST WO CON 05/05/2024 4:57 AM EST documented in this encounter Results * CT CHEST WO CON (05/05/2024 4:57 AM EST) Anatomical Region Laterality Modality Other 05/05/2024 4:57 AM EST Narrative 05/05/2024 5:[place] [address] CT Scan Report Signed Patient: ARJUN DIEGO Jr. MR#: [id number] : 1950 Acct:[id number] Age/Sex: 73 / M ADM Date: 05/03/24 Loc: CT Attending Dr: Alfonso Fernandes D.O. Ordering Physician: Alfonso Fernandes D.O. Date of Service: 05/03/24 Procedure(s): CT chest wo con Accession Number(s): [id number] cc: Tejas Bryant M.D. The [place] [id number] Patient Name: ARJUN DIEGO MRN: [id number] date: 1950 Sex: M Assigned Patient Location: CT Current Patient Location: Accession/Order Number: [id number] Exam Date: 05/03/2024 15:13 Report Date: 05/05/2024 04:57 At the request of: ALFONSO FERNANDES Procedure: CT chest wo con EXAMINATION: CT chest wo con HISTORY: Ground Glass Opacity COMPARISON: CT chest 10/31/2023 TECHNIQUE: Axial, Coronal, and Sagittal images were created without the administration of IV contrast material. Dose reduction techniques were achieved by using automated exposure control and/or adjustment of mA and/or kV according to patient size and/or use of iterative reconstruction technique. FINDINGS: LUNGS: Thin opacity adjacent the posterior lateral lower left chest wall; scarring versus trace amount of atelectasis or pleural thickening. Lungs have otherwise completely cleared. PLEURA: No mass, effusion, or pneumothorax. VASCULATURE: No abnormality. GILDARDO: Calcified left hilar lymph nodes suggestive chronic granulomatous disease. MEDIASTINUM: No mass or pathologic adenopathy. CARDIAC: No enlargement, pericardial thickening, or pericardial effusion. Coronary Artery calcifications: Coronary calcifications are moderate. AORTA: No aneurysm or dissection. CHEST WALL: No mass or axillary adenopathy BONES: No bone lesion or fracture. LIMITED ABDOMEN: No suspicious findings. Limited images of the upper abdomen. OTHER: Negative. CT/CT chest wo con IMPRESSION: 1. Clearing of the lungs except for a trace amount of scarring or possibly discoid atelectasis within posterior left lung base. No suspicious findings. Electronically authenticated by: KRISH SPARKS Date: 05/05/2024 04:57 Dictated By: Krish Sparks M.D. Signed By: 05/05/24 0500 DD/ 0457 TD/TT: Cement Storage Worker: Procedure Note Radiology, Radiologist, MD - 05/05/2024 [place] [address] CT Scan Report Signed Patient: ARJUN DIEGO Jr.MR#: [id number] : 1950cct:[id number] Age/Sex: 73 / MADM Date: 05/03/24 Loc: CT Attending Dr: Alfonso Fernandes D.O. Ordering Physician: Alfonso Fernandes D.O. Date of Service: 05/03/24 Procedure(s): CT chest wo con Accession Number(s): [id number] cc: Tejas Bryant M.D. The [address] [address] Patient Name: ARJUN DIEGO MRN: [id number] date: 1950 Sex: M Assigned Patient Location: CT Current Patient Location: Accession/Order Number: [id number] Exam Date: 05/03/2024 15:13 Report Date: 05/05/2024 04:57 At the request of: ALFONSO FERNANDES Procedure: CT chest wo con EXAMINATION: CT chest wo con HISTORY: Ground Glass Opacity COMPARISON: CT chest 10/31/2023 TECHNIQUE: Axial, Coronal, and Sagittal images were created without the administration of IV contrast material. Dose reduction techniques were achieved by using automated exposure control and/or adjustment of mA and/or kV according to patient size and/or use of iterative reconstruction technique. FINDINGS: LUNGS: Thin opacity adjacent the posterior lateral lower left chest wall; scarring versus trace amount of atelectasis or pleural thickening. Lungshave otherwise completely cleared. PLEURA: No mass, effusion, or pneumothorax. VASCULATURE: No abnormality. GILDARDO: Calcified left hilar lymph nodes suggestive chronic granulomatous disease. MEDIASTINUM: No mass or pathologic adenopathy. CARDIAC: No enlargement, pericardial thickening, or pericardial effusion. Coronary Artery calcifications: Coronary calcifications are moderate. AORTA: No aneurysm or dissection. CHEST WALL: No mass or axillary adenopathy BONES: No bone lesion or fracture. LIMITED ABDOMEN: No suspicious findings. Limited images of the upperabdomen. OTHER: Negative. CT/CT chest wo con IMPRESSION: 1. Clearing of the lungs except for a trace amount of scarring or possibly discoid atelectasis within posterior left lung base. No suspiciousfindings. Electronically authenticated by: KRISH SPARKS Date: 05/05/2024 04:57 Dictated By: Krish Sparks M.D. Signed By:05/05/24 0500 DD/ 0457 TD/TT: Cement Storage Worker: Generic External Data Provider [facility] Final Result documented in this encounter Visit Diagnoses Not on filedocumented in this encounter Additional Health Concerns Assessment Noted Time PHQ-9 Depression Total Score: 3 01/13/20 24 1:00 PM EDT documented as of this encounter Care Teams Laboratory Apparatus Glass Blower Relationship Specialty Start Date End Date Tejas Bryant MD [address] [place] [address] PCP - Devoted 05/26/23 05/25/24 Tejas Bryant MD [address] [place] [address] PCP - General Family Medicine 08/14/23 documented as of this encounter
--- OUTSIDE RECORDS SUMMARY | 2024-12-30 15:18 | XMS_ITS | Encounter Summary ---
Author Organization [facility] Address [address] [place] [address] Care Team Providers Care Sales Consulting Director Name Role Phone Tejas Bryant MD Primary Care Provider [phone] Encounter Details Date Type Department Care Team (Late st Contact Info) Description 08/26/2023 Lab Requisition [facility] Hospital Lab [address] [place] [phone] Rohan Shin MD [address] [place], [place] [id number] Social History Tobacco Use Types Packs/Day Years Used Date Smoking Tobacco: Never Assessed [place] Safety & Environment Answer Date Rec orded [...] Procedure Name Priority Date/Time Associated Diagnosis Comments HEPATITIS B SURFACE ANTIBODY QUANT Routine 08/26/2023 4:48 AM EDT CBC WITH AUTO DIFFERENTIAL Routine 08/26/2023 4:48 AM EDT HEPATITIS B SURFACE ANTIGEN Routine 08/26/2023 4:48 AM EDT CBC AND DIFFERENTIAL Routine 08/26/2023 4:48 AM EDT MAGNESIUM Routine 08/26/2023 4:48 AM EDT BASIC METABOLIC PANEL Routine 08/26/2023 4:48 AM EDT documented in this encounter Results * (ABNORMAL) CBC auto differential (08/26/2023 4:48 AM EDT) Auto WBC 12.50(H) 4.00 - 10.60 10*3/uL 08/26/2023 5:20 AM EDT [facility] ([facility]) RBC 3.33(L) 4.20 - 5.70 10*6/uL 08/26/2023 5:20 AM EDT [facility] ([facility]) Hemoglobin 9.5(L) 13.0 - 17.0 g/dL 08/26/2023 5:20 AM EDT [facility] ([facility]) Hematocrit 29.7(L) 39.0 - 55.0 % 08/26/2023 5:20 AM EDT [facility] ([facility]) MCV 89.2 82.0 - 98.0 fL 08/26/2023 5:20 AM EDT [facility] ([facility]) MCH 28.5 27.0 - 33.0 pg 08/26/2023 5:20 AM EDT [facility] ([facility]) MCHC 32.0 32.0 - 35.0 g/dL 08/26/2023 5:20 AM EDT [facility] ([facility]) RDW 15.5(H) 11.5 - 15.0 % 08/26/2023 5:20 AM EDT [facility] ([facility]) Neutrophils % 66.5 40.0 - 72.0 % 08/26/2023 5:20 AM EDT [facility] ([facility]) Lymphocytes % 18.1(L) 20.0 - 45.0 % 08/26/2023 5:20 AM EDT [facility] ([facility]) Monocytes % 11.2 5.0 - 12.0 % 08/26/2023 5:20 AM EDT [facility] ([facility]) Eosinophils % 2.4 0.0 - 6.0 % 08/26/2023 5:20 AM EDT [facility] ([facility]) Basophils % 1.2(H) 0.0 - 1.0 % 08/26/2023 5:20 AM EDT [facility] ([facility]) Neutrophils Absolute 8.32(H) 1.60 - 7.60 10*3/uL 08/26/2023 5:20 AM EDT [facility] ([facility]) Lymphocytes Absolute 2.26 1.20 - 4.00 10*3/uL 08/26/2023 5:20 AM EDT [facility] ([facility]) Monocytes Absolute 1.40(H) 0.10 - 1.00 10*3/uL 08/26/2023 5:20 AM EDT [facility] ([facility]) Eosinophils Absolute 0.30 0.00 - 0.50 10*3/uL 08/26/2023 5:20 AM EDT [facility] ([facility]) Basophils Absolute 0.15 0.00 - 0.20 10*3/uL 08/26/2023 5:20 AM EDT [facility] ([facility]) Platelets 885(H) 150 - 400 10*3/uL 08/26/2023 5:20 AM EDT [facility] ([facility]) nRBC % 0.0 0 % 08/26/2023 5:20 AM EDT [facility] ([facility]) Immature Granulocytes % 0.6 0.0 - 1.0 % 08/26/2023 5:20 AM EDT [facility] ([facility]) Immature Granulocytes Absolute 0.07 0.00 - 0.20 10*3/uL 08/26/2023 5:20 AM EDT [facility] ([facility]) Blood Venous blood specimen / Unknown 08/26/2023 4:48 AM EDT 08/26/2023 5:05 AM EDT us Rohan Shin MD LAB BLOOD ORDERABLES Final Result [facility] ([facility]) [address] [place] [address] * Hepatitis B surface antibody quant (08/26/2023 4:48 AM EDT) Hepatitis B Surface Ab 0.01 mIU/mL 08/26/2023 9:18 AM EDT [facility] ([facility]) Comment: INTERPRETATION: NONREACTIVE <8.00 mIU/mL INDETERMINATE 8.00 - 12.00 mIU/mL REACTIVE >12 mIU/mL Blood Venous blood specimen / Unknown 08/26/2023 4:48 AM EDT 08/26/2023 5:05 AM EDT Rohan Shin MD LAB BLOOD ORDERABLES Final Result Performing Organization Address [facility]/ZIP Co de Phone Number [facility]) [address] [place] [address] * Hepatitis B surface antigen (08/26/2023 4:48 AM EDT) Hepatitis B Surface Ag Nonreactive Nonreactive 08/26/2023 9:18 AM EDT [facility]) Blood Venous blood specimen / Unknown 08/26/2023 4:48 AM EDT 08/26/2023 5:05 AM EDT Rohan Shin MD LAB BLOOD ORDERABLES Final Result Performing Organization Address [facility]/ZIP Co de Phone Number [facility]) [address] [place] [phone] * Magnesium (08/26/2023 4:48 AM EDT) Magnesium 2.2 1.9 - 2.7 mg/dL 08/26/2023 6:11 AM EDT [facility]) Blood Venous blood specimen / Unknown 08/26/2023 4:48 AM EDT 08/26/2023 5:05 AM EDT us Rohan Shin MD LAB BLOOD ORDERABLES Final Result [facility] ([facility]) [address] [place] [address] * (ABNORMAL) Basic metabolic panel (08/26/2023 4:48 AM EDT) Sodium 134(L) 136 - 145 mmol/L 08/26/2023 6:11 AM EDT [facility] ([facility]) Potassium 3.8 3.5 - 5.1 mmol/L 08/26/2023 6:11 AM EDT [facility] ([facility]) Chloride 96(L) 98 - 107 mmol/L 08/26/2023 6:11 AM EDT [facility] ([facility]) CO2 32(H) 21 - 31 mmol/L 08/26/2023 6:11 AM EDT [facility] ([facility]) BUN 33(H) 7 - 25 mg/dL 08/26/2023 6:11 AM EDT [facility] ([facility]) Creatinine 2.38(H) 0.70 - 1.30 mg/dL 08/26/2023 6:11 AM EDT [facility] ([facility]) Glucose 123(H) 70 - 100 mg/dL 08/26/2023 6:11 AM EDT [facility] ([facility]) Calcium 7.8(L) 8.6 - 10.3 mg/dL 08/26/2023 6:11 AM EDT [facility] ([facility]) Anion Gap 10 7 - 20 mmol/L 08/26/2023 6:11 AM EDT [facility] ([facility]) eGFR 28.4(L) >60.0 mL/min/1. 73m*2 08/26/2023 6:11 AM EDT [facility] ([facility]) Comment:[facility] s estimated glomerular filtration rate (eGFR) [...] any one group of individuals. BUN/Creatinine Ratio 13.9 0406/2023 6:11 AM EDT [facility] ([facility]) Blood Venous blood specimen / Unknown 08/26/2023 4:48 AM EDT 08/26/2023 5:05 AM EDT Rohan Shin MD LAB BLOOD ORDERABLES Final Result [facility] ([facility]) [address] [place] [address] documented in this encounter Visit Diagnoses Not on filedocumented in this encounter Additional Health Concerns Infection Onset Date Last Indicated Resolved Time CRE 08/29/2023 08/29/2023 documented as of this encounter Care Teams Sales Consulting Director Relationship Specialty Start Date End Date Tejas Bryant MD [facility] [place] [address] PCP - General Family Medicine 12/29/23 documented as of this encounter
--- OUTSIDE RECORDS SUMMARY | 2024-12-30 15:18 | XMS_ITS | Encounter Summary ---
Author Organization [facility] Address [address] [place] [address] Care Team Providers Care College Physics Instructor Name Role Phone Tejas Bryant MD Primary Care Provider [phone] Encounter Details Date Type Department Care Team (Late st Contact Info) Description 09/15/2023 Lab Requisition [facility] Lab [address] [place] [phone] Rohan Shin MD [address] [place], [place] [id number] Social History Tobacco Use Types Packs/Day Years Used Date Smoking Tobacco: Never Assessed [place] Safety & Environment Answer Date Rec orded [...] Diagnosis Comments CBC WITH AUTO DIFFERENTIAL Routine 09/16/2023 5:30 AM EDT CBC AND DIFFERENTIAL Routine 09/16/2023 5:30 AM EDT PHOSPHORUS Routine 09/16/2023 5:30 AM EDT MAGNESIUM Routine 09/16/2023 5:30 AM EDT BASIC METABOLIC PANEL Routine 09/16/2023 5:30 AM EDT documented in this encounter Results * (ABNORMAL) Phosphorus (09/16/2023 5:30 AM EDT) [facility] Phosphorus 6.4(H) 2.5 - 5.0 mg/dL 09/16/2023 10:25 AM EDT [facility] ([facility]) Blood Venous blood specimen / Unknown Venipuncture / Unknown 09/16/2023 5:30 AM EDT 09/16/2023 7:00 AM EDT us Rohan Shin MD LAB BLOOD ORDERABLES Final Result [facility] ([facility]) [address] [place] [address] * (ABNORMAL) CBC auto differential (09/16/2023 5:30 AM EDT) [facility] Auto WBC 11.10(H) 4.00 - 10.60 10*3/uL 09/16/2023 7:08 AM EDT [facility] ([facility]) RBC 3.27(L) 4.20 - 5.70 10*6/uL 09/16/2023 7:08 AM EDT [facility] ([facility]) Hemoglobin 9.4(L) 13.0 - 17.0 g/dL 09/16/2023 7:08 AM EDT [facility] ([facility]) Hematocrit 29.7(L) 39.0 - 55.0 % 09/16/2023 7:08 AM EDT [facility] ([facility]) MCV 90.8 82.0 - 98.0 fL 09/16/2023 7:08 AM EDT [facility] ([facility]) MCH 28.7 27.0 - 33.0 pg 09/16/2023 7:08 AM EDT [facility] ([facility]) MCHC 31.6(L) 32.0 - 35.0 g/dL 09/16/2023 7:08 AM [facility] ([facility]) RDW 17.2(H) 11.5 - 15.0 % 09/16/2023 7:08 AM T [facility] ([facility]) Neutrophils % 57.0 40.0 - 72.0 % 09/16/2023 7:08 AM [facility] ([facility]) Lymphocytes % 23.4 20.0 - 45.0 % 09/16/2023 7:08 AM T [facility] ([facility]) Monocytes % 11.9 5.0 - 12.0 % 09/16/2023 7:08 AM T [facility] ([facility]) Eosinophils % 5.6 0.0 - 6.0 % 09/16/2023 7:08 AM [facility] ([facility]) Basophils % 1.7(H) 0.0 - 1.0 % 09/16/2023 7:08 AM [facility] ([facility]) Neutrophils Absolute 6.33 1.60 - 7.60 10*3/uL 09/16/2023 7:08 AM [facility] ([facility]) Lymphocytes Absolute 2.60 1.20 - 4.00 10*3/uL 09/16/2023 7:08 AM [facility] ([facility]) Monocytes Absolute 1.32(H) 0.10 - 1.00 10*3/uL 09/16/2023 7:08 AM [facility] ([facility]) Eosinophils Absolute 0.62(H) 0.00 - 0.50 10*3/uL 09/16/2023 7:08 AM [facility] ([facility]) Basophils Absolute 0.19 0.00 - 0.20 10*3/uL 09/16/2023 7:08 AM [facility] ([facility]) Platelets 633(H) 150 - 400 10*3/uL 09/16/2023 7:08 AM [facility] ([facility]) nRBC % 0.0 0 % 09/16/2023 7:08 AM [facility] ([facility]) Immature Granulocytes % 0.4 0.0 - 1.0 % 09/16/2023 7:08 AM [facility] ([facility]) Immature Granulocytes Absolute 0.04 0.00 - 0.20 10*3/uL 09/16/2023 7:08 AM EDT [facility] ([facility]) Blood Venous blood specimen / Unknown Venipuncture / Unknown 09/16/2023 5:30 AM EDT 09/16/2023 7:00 AM EDT us Rohan Shin MD LAB BLOOD ORDERABLES Final Result Performing Organization Address City/[facility]/ZIP Co de Phone Number [facility]) [address] [place] [address] * Magnesium (09/16/2023 5:30 AM EDT) Pathologist [facility] Magnesium 2.1 1.9 - 2.7 mg/dL 09/16/2023 7:58 AM EDT [facility]) Blood Venous blood specimen / Unknown Venipuncture / Unknown 09/16/2023 5:30 AM EDT 09/16/2023 7:00 AM EDT us Rohan Shin MD LAB BLOOD ORDERABLES Final Result Performing Organization Address [facility] Co de Phone Number [facility]) [address] [place] [address] * (ABNORMAL) Basic metabolic panel (09/16/2023 5:30 AM EDT) Sodium 135(L) 136 - 145 mmol/L 09/16/2023 8:40 AM EDT [facility] ([facility]) Potassium 4.6 3.5 - 5.1 mmol/L 09/16/2023 8:40 AM EDT [facility] ([facility]) Chloride 103 98 - 107 mmol/L 09/16/2023 8:40 AM EDT [facility] ([facility]) CO2 22 21 - 31 mmol/L 09/16/2023 8:40 AM EDT [facility] ([facility]) BUN 52(H) 7 - 25 mg/dL 09/16/2023 8:40 AM EDT [facility] ([facility]) Creatinine 2.36(H) 0.70 - 1.30 mg/dL 09/16/2023 8:40 AM EDT [facility] ([facility]) Glucose 36(LL) 70 - 100 mg/dL 09/16/2023 8:40 AM EDT [facility] ([facility]) Calcium 8.4(L) 8.6 - 10.3 mg/dL 09/16/2023 8:40 AM EDT [facility] ([facility]) Anion Gap 15 7 - 20 mmol/L 09/16/2023 8:40 AM EDT [facility] ([facility]) eGFR 28.7(L) >60.0 mL/min/1. 73m*2 09/16/2023 8:40 AM EDT [facility] ([facility]) Comment:[facility] s estimated glomerular filtration rate (eGFR) [...] any one group of individuals. BUN/Creatinine Ratio 22.0 08/25 8:40 AM EDT [facility] ([facility]) Blood Venous blood specimen / Unknown Venipuncture / Unknown 09/16/2023 5:30 AM EDT 09/16/2023 7:00 AM EDT us Rohan Shin MD LAB BLOOD ORDERABLES Final Result [facility] ([facility]) [address] [place] [address] documented in this encounter Visit Diagnoses Not on filedocumented in this encounter Additional Health Concerns Infection Onset Date Last Indicated Resolved Time CRE 08/29/2023 08/29/2023 documented as of this encounter Care Teams College Physics Instructor Relationship Specialty Start Date End Date Tejas Bryant MD [address] [place] [address] PCP - General Family Medicine 12/29/23 documented as of this encounter
--- OUTSIDE RECORDS SUMMARY | 2024-12-30 15:18 | XMS_ITS | Encounter Summary ---
Author Organization [facility] Address [address] [place] [address] Care Team Providers Care Diaphragm Builder Name Role Phone Tejas Bryant MD Primary Care Provider [phone] Encounter Details Date Type Department Care Team (Late st Contact Info) Description 09/21/2023 Lab Requisition [facility] Hospital Lab [address] [place] [phone] Rohan Shin MD [address] [place] [address] Respiratory failure, unspecified, unspecified whether with hypoxia or hypercapnia (CMS/HCC) Social History Tobacco Use Types Packs/Day Years Used Date Smoking Tobacco: Never Assessed [place] Safety & Environment Answer Date Rec orded [...] documented as of this encounter Visit Diagnoses Diagnosis Respiratory failure, unspecified, unspecified whether with hypoxia or hypercapnia (CMS/HCC) documented in this encounter Additional Health Concerns Infection Onset Date Last Indicated Resolved Time CRE 08/29/2023 08/29/2023 documented as of this encounter Care Teams Diaphragm Builder Relationship Specialty Start Date End Date Tejas Bryant MD [facility] [address] [place] [address] PCP - General Family Medicine 12/29/23 documented as of this encounter
--- OUTSIDE RECORDS SUMMARY | 2024-12-30 15:19 | XMS_ITS | Encounter Summary ---
Author Organization [facility] Address [address] [place] [address] Care Team Providers Care Adjusto Writer Operator Name Role Phone Tejas Bryant MD Primary Care Provider [phone] Encounter Details Date Type Department Care Team (Late st Contact Info) Description 09/11/2023 Lab Requisition [facility] Hospital Lab [address] [place] [phone] Rohan Shin MD [address] [place], [place] [id number] Social History Tobacco Use Types Packs/Day Years Used Date Smoking Tobacco: Never Assessed [place] Safety & Environment Answer Date Rec orded [...] Priority Date/Time Associated Diagnosis Comments CBC Routine 09/12/2023 4:27 AM EDT PHOSPHORUS Routine 09/12/2023 4:27 AM EDT MAGNESIUM Routine 09/12/2023 4:27 AM EDT BASIC METABOLIC PANEL Routine 09/12/2023 4:27 AM EDT documented in this encounter Results * (ABNORMAL) CBC (09/12/2023 4:27 AM EDT) Auto WBC 12.24(H) 4.00 - 10.60 10*3/uL 09/12/2023 5:28 AM EDT [facility] ([facility]) RBC 3.42(L) 4.20 - 5.70 10*6/uL 09/12/2023 5:28 AM EDT [facility] ([facility]) Hemoglobin 10.0(L) 13.0 - 17.0 g/dL 09/12/2023 5:28 AM EDT [facility] ([facility]) Hematocrit 30.3(L) 39.0 - 55.0 % 09/12/2023 5:28 AM EDT [facility] ([facility]) MCV 88.6 82.0 - 98.0 fL 09/12/2023 5:28 AM EDT [facility] ([facility]) MCH 29.2 27.0 - 33.0 pg 09/12/2023 5:28 AM EDT [facility] ([facility]) MCHC 33.0 32.0 - 35.0 g/dL 09/12/2023 5:28 AM EDT [facility] ([facility]) RDW 15.7(H) 11.5 - 15.0 % 09/12/2023 5:28 AM EDT [facility] ([facility]) Platelets 566(H) 150 - 400 10*3/uL 09/12/2023 5:28 AM EDT [facility] ([facility]) Blood Venous blood specimen / Unknown Arterial Line / Unknown 09/12/2023 4:27 AM EDT 09/12/2023 4:27 AM EDT us Rohan Shin MD LAB BLOOD ORDERABLES Final Result [facility] ([facility]) [address] [place] [address] * (ABNORMAL) Phosphorus (09/12/2023 4:27 AM EDT) Phosphorus 6.4(H) 2.5 - 5.0 mg/dL 09/12/2023 5:22 AM EDT [facility] ([facility]) Blood Venous blood specimen / Unknown Arterial Line / Unknown 09/12/2023 4:27 AM EDT 09/12/2023 4:27 AM EDT Rohan Shin MD LAB BLOOD ORDERABLES Final Result Performing Organization Address City/[facility]/ZIP Co de Phone Number [facility]) [address] [place], [place] [phone] * Magnesium (09/12/2023 4:27 AM EDT) [facility] Magnesium 2.2 1.9 - 2.7 mg/dL 09/12/2023 5:22 AM EDT [facility] ([facility]) Blood Venous blood specimen / Unknown Arterial Line / Unknown 09/12/2023 4:27 AM EDT 09/12/2023 4:27 AM EDT us Rohan Shin MD LAB BLOOD ORDERABLES Final Result Performing Organization Address [facility] Co de Phone Number [facility]) [address] [place] [address] * (ABNORMAL) Basic metabolic panel (09/12/2023 4:27 AM EDT) [facility] Sodium 134(L) 136 - 145 mmol/L 09/12/2023 5:22 AM EDT [facility] ([facility]) Potassium 4.0 3.5 - 5.1 mmol/L 09/12/2023 5:22 AM EDT [facility] ([facility]) Chloride 102 98 - 107 mmol/L 09/12/2023 5:22 AM EDT [facility] ([facility]) CO2 23 21 - 31 mmol/L 09/12/2023 5:22 AM EDT [facility] ([facility]) BUN 76(H) 7 - 25 mg/dL 09/12/2023 5:22 AM EDT [facility] ([facility]) Creatinine 1.44(H) 0.70 - 1.30 mg/dL 09/12/2023 5:22 AM EDT [facility] ([facility]) Glucose 61(L) 70 - 100 mg/dL 09/12/2023 5:22 AM EDT [facility] ([facility]) Calcium 8.5(L) 8.6 - 10.3 mg/dL 09/12/2023 5:22 AM EDT [facility] ([facility]) Anion Gap 13 7 - 20 mmol/L 09/12/2023 5:22 AM EDT [facility] ([facility]) eGFR 51.9(L) >60.0 mL/min/1. 73m*2 09/12/2023 5:22 AM EDT [facility] ([facility]) Comment:[facility] s estimated glomerular filtration rate (eGFR) will [...] any one group of individuals. BUN/Creatinine Ratio 52.8 08/24 5:22 AM EDT [facility] ([facility]) Blood Venous blood specimen / Unknown Arterial Line / Unknown 09/12/2023 4:27 AM EDT 09/12/2023 4:27 AM EDT us Rohan Shin MD LAB BLOOD ORDERABLES Final Result [facility] ([facility]) [address] [place] [address] documented in this encounter Visit Diagnoses Not on filedocumented in this encounter Additional Health Concerns Infection Onset Date Last Indicated Resolved Time CRE 08/29/2023 08/29/2023 documented as of this encounter Care Teams Adjusto Writer Operator Relationship Specialty Start Date End Date Tejas Bryant MD [address] [place] [address] PCP - General Family Medicine 12/29/23 documented as of this encounter
--- OUTSIDE RECORDS SUMMARY | 2024-12-30 15:19 | XMS_ITS | Encounter Summary ---
Author Organization [facility] Address [address] [place] [address] Care Team Providers Care Card Clothier Name Role Phone Tejas Bryant MD Primary Care Provider Tejas Bryant MD Unavailable Tejas Bryant MD Primary Care Provider [phone] Encounter Details Date Type Department Care Team (Late st Contact Info) Description 08/06/2023 Orders Only [facility] [address] [place] [address] Tejas Bryant MD [address] [place] [address] Social History Tobacco Use Types Packs/Day Years [...] [facility] [address] [place] [phone] Rohan Chapman DPM [address] [address] 02/01/2025 1:00 PM EDT Office Visit [facility] [address] [place] [phone] Tejas Bryant MD [address] [place] [address] documented as of this encounter Procedures Procedure Name Priority Date/Time Associated Diagnosis Comments ECG 12-LEAD Routine 08/06/2023 9:21 AM EDT documented in this encounter Results * ECG 12 lead (08/06/2023 9:21 AM EDT) Tejas Bryant MD ECG ORDERABLES Final Result documented in this encounter Visit Diagnoses Not on filedocumented in this encounter Care Teams Card Clothier Relationship Specialty Start Date End Date Tejas Bryant MD PCP - General Cardiology 11/07/22 08/13/23 Tejas Bryant MD [address] [place] [address] PCP - Devoted 05/26/23 05/25/24 Tejas Bryant MD [address] [place] [address] PCP - General Family Medicine 08/14/23 documented as of this encounter
--- OUTSIDE RECORDS SUMMARY | 2024-12-30 15:19 | XMS_ITS | Encounter Summary ---
Author Organization [facility] Address [address] [place] [address] Care Team Providers Care Data Warehouse Manager Name Role Phone Tejas Bryant MD Primary Care Provider [phone] Tejas Bryant MD Unavailable Tejas Bryant MD Primary Care Provider [phone] Encounter Details Date Type Department Care Team (Late Contact Info) Description 08/07/2023 Orders Only [facility] [address] [place] [address] Felisha Guzman MD [address] [place] [address] Social History Tobacco Use Types Packs/Day Years [...] EDT Office Visit [facility] [address] [facility] [address] [place] [phone] Rohan Chapman DPM [address] [address] 02/01/2025 1:00 PM EDT Office Visit [facility] [address] [place] [phone] Tejas Bryant MD [address] [place] [phone] documented as of this encounter Procedures Procedure Name Priority Date/Time Associated Diagnosis Comments XR CHEST 1 VIEW Routine 07/31/2023 10:20 AM EST documented in this encounter Results * XR chest 1 view (07/31/2023 10:20 AM EST) Anatomical Region Laterality Modality Chest Radiographic Radha ging Felisha Guzman MD IMG XR PROCEDURES Final Result documented in this encounter Visit Diagnoses Not on filedocumented in this encounter Care Teams Data Warehouse Manager Relationship Specialty Start Date End Date Tejas Bryant MD PCP - General Cardiology 11/07/22 08/13/23 Tejas Bryant MD [address] [place] [address] PCP - Devoted 05/26/23 05/25/24 Tejas Bryant MD [address] [place] [phone] PCP - General Family Medicine 08/14/23 documented as of this encounter
--- OUTSIDE RECORDS SUMMARY | 2024-12-30 15:19 | XMS_ITS | Encounter Summary ---
Author Organization [facility] Address [address] [place] [address] Care Team Providers Care Auto Service Dispatcher Name Role Phone Tejas Bryant MD Primary Care Provider [phone] Encounter Details Date Type Department Care Team (Late st Contact Info) Description 09/23/2023 Lab Requisition [facility] Hospital Lab [address] [place] [phone] Rohan Shin MD [address] [place], [place] [phone] Social History Tobacco Use Types Packs/Day Years [...] documented as of this encounter Care Teams Auto Service Dispatcher Relationship Specialty Start Date End Date Tejas Bryant MD [address] [facility] [place] [address] PCP - General Family Medicine 12/29/23 documented as of this encounter
--- OUTSIDE RECORDS SUMMARY | 2024-12-30 15:19 | XMS_ITS | Encounter Summary ---
Author Organization [facility] Address [address] [place] [address] Care Team Providers Care Perinatal Specialist Name Role Phone Tejas Bryant MD Primary Care Provider [phone] Tejas Bryant MD Unavailable Tejas Bryant MD Primary Care Provider [phone] Encounter Details Date Type Department Care Team (Late st Contact Info) Description 07/11/2023 External Result Encounter [facility] External Department Unsolicited Rohan Chapman DPM [address] [address] Social History Tobacco Use Types Packs/Day Years [...] Office Visit [facility] [address] [facility] [address] [place] [address] Rohan Chapman DPM 3[address] [facility] 5 [place] [address] 02/01/2025 1:00 PM EDT Office Visit [facility] [address] [place] [address] Tejas Bryant MD [address] [place] [phone] documented as of this encounter Procedures Procedure Name Priority Date/Time Associated Diagnosis Comments MR FOOT LEFT WO IV CONTRAST 07/11/2023 2:30 PM EST documented in this encounter Results * MR foot left wo IV contrast (07/11/2023 2:30 PM EST) Anatomical Region Laterality Modality Lower Extremities, Foot Left Magnetic Resonance 07/11/2023 2:30 PM EST Impressions 07/11/2023 2:42 PM EST Findings are consistent with osteomyelitis of the first metatarsal head and remnant of the fifth metatarsal shaft. There are accompanying soft tissue erosions. Diffuse soft tissue edema is noted consistent with cellulitis and myositis. There is a fluid collection along the plantar aspect of the first metatarsal measuring 3.0 x 0.9 x 0.9 cm in greatest dimension. This is deep to the flexor tendon and is suspicious for an abscess. Extensive phlegmonous changes are also noted along the dorsum of the foot paralleling the first and second metatarsal and metatarsophalangeal junctions which may represent developing abscess. Impression dictated by: Nathan Lemus M.D.07/11/2023 2:40 PM Dictation Location: [place] [address] Transcribed By: [facility] 07/11/23 1440 Dictated By: Nathan Lemus II, MD 07/11/23 1430 Signed By: <Electronically signed by Nathan Lemus II, MD in OV> 07/11/23 1440 Narrative 07/11/2023 2:42 PM EST [facility] Main [place] [address] [place] [address] MRI Report Signed Patient: Sudeep Diego JR MR#: [id number] : 1950 Acct:[id number] Age/Sex: 72 / M ADM Date: 07/10/23 Loc: Room: 0J4278-9 Type: ADM IN Attending Dr: Brennan Cerrato MD Copies to: MD Rohan Cruz DPM Ordering Provider: Rohan Chapman DPM Date of Service: 07/11/23 MR/MR foot LT wo con: left foot OM/cellulitisi/Dm2 MR foot LT wo con 07/10/2023 9:55 PM SIGNS AND SYMPTOMS: Increasing redness and swelling of left foot, chronic diabetic ulcers, chills, recent to amputation PROTOCOL: Multiplanar multisequence MR images of the left foot were obtained without IV contrast. COMPARISON: Radiographs 07/10/2023 FINDINGS: Lisfranc ligament: Intact. Hallux: Osseous: There is soft tissue erosion exposing the distal aspect of the first metatarsal with underlying marrow edema and cortical thinning/destruction consistent with osteomyelitis. Extensor tendon: Normal. Flexor tendon: Intact First metatarsophalangeal joint: Degenerative changes are noted in the first metatarsophalangeal joint.. Hallux-sesamoid complex: There is edema along the medial sesamoid suspicious for osteomyelitis. Medial sesamoid is also bifid which may be congenital or secondary to a remote injury.. Second ray: Osseous: Normal Extensor tendon: Normal. Flexor tendon: Normal. Second metatarsophalangeal joint: Intact. Plantar plate: Normal. Third ray: Osseous: Normal. Extensor tendon: Normal. Flexor tendon: Normal. Third metatarsophalangeal joint: Intact. Plantar plate: Normal. Fourth ray: Osseous: Normal. Extensor tendon: Normal. Flexor tendon: Normal. Fourth metatarsophalangeal joint: Intact. Plantar plate: Normal. Fifth ray: Osseous: Previously resected. There is edema along the remnants of the shaft of the fifth metatarsal consistent with the osteopenia seen on the previous radiographs suspicious for ostium myelitis. There is an accompanying soft tissue defect near the tip of the fifth metatarsal remnant distally. Interspaces: Interdigital (Cornelius) neuroma: None. Intermetatarsal bursitis: None. Soft tissues: There is a fluid collection along the plantar aspect of the first metatarsal measuring 3.0 x 0.9 x 0.9 cm in greatest dimension. This is deep to the flexor tendon and is suspicious for an abscess. Extensive phlegmonous changes are also noted along the dorsum of the foot paralleling the first and second metatarsal and metatarsophalangeal junctions which may represent developing abscess. Muscles: There is diffuse muscular edema along the plantar surface of foot consistent with myositis. Bones: Normal. Nerves: Normal. Blood vessels: Normal. MR/MR foot LT wo con Procedure Note Radiology, Radiologist, - 07/11/2023 [facility] Main [place] [address] [place] [address] MRI Report Signed Patient: Sudeep Diego [facility]#: [id number] : 2Acct:[id number] Age/Sex: 72 / MADM Date: 07/10/23 Loc: Room: [id number]: ADM IN Attending Dr: Brennan Cerrato MD Copies to: MD Rohan Cruz DPM Ordering Provider: Rohan Chapman DPM Date of Service: 07/11/23 MR/MR foot LT wo con: left footOM/cellulitisi/Dm2 MR foot LT wo con 07/10/2023 9:55 PM SIGNS AND SYMPTOMS: Increasing redness and swelling of left foot, chronicdiabetic ulcers, chills, recent to amputation PROTOCOL: Multiplanar multisequence MR images of the left foot wereobtained without IV contrast. COMPARISON: Radiographs 07/10/2023 FINDINGS: Lisfranc ligament: Intact. Hallux: Osseous: There is soft tissue erosion exposing the distal aspect of thefirst metatarsal with underlying marrow edema and cortical thinning/destruction consistent withosteomyelitis. Extensor tendon: Normal. Flexor tendon: Intact First metatarsophalangeal joint: Degenerative changes are noted in thefirst metatarsophalangeal joint.. Hallux-sesamoid complex: There is edema along the medial sesamoidsuspicious for osteomyelitis. Medial sesamoid is also bifid which may be congenital or secondary to aremote injury.. Second ray: Osseous: Normal Extensor tendon: Normal. Flexor tendon: Normal. Second metatarsophalangeal joint: Intact. Plantar plate: Normal. Third ray: Osseous: Normal. Extensor tendon: Normal. Flexor tendon: Normal. Third metatarsophalangeal joint: Intact. Plantar plate: Normal. Fourth ray: Osseous: Normal. Extensor tendon: Normal. Flexor tendon: Normal. Fourth metatarsophalangeal joint: Intact. Plantar plate: Normal. Fifth ray: Osseous: Previously resected. There is edema along the remnants of theshaft of the fifth metatarsal consistent with the osteopenia seen on the previous radiographs suspiciousfor ostium myelitis. There is an accompanying soft tissue defect near the tip of the fifthmetatarsal remnant distally. Interspaces: Interdigital (Cornelius) neuroma: None. Intermetatarsal bursitis: None. Soft tissues: There is a fluid collection along the plantar aspect of thefirst metatarsal measuring 3.0 x 0.9 x 0.9 cm in greatest dimension. This is deep to the flexortendon and is suspicious for an abscess. Extensive phlegmonous changes are also noted along the dorsum ofthe foot paralleling the first and second metatarsal and metatarsophalangeal junctions which mayrepresent developing abscess. Muscles: There is diffuse muscular edema along the plantar surface of footconsistent with myositis. Bones: Normal. Nerves: Normal. Blood vessels: Normal. MR/MR foot LT wo con IMPRESSION: Findings are consistent with osteomyelitis of the first metatarsal headand remnant of the fifth metatarsal shaft. There are accompanying soft tissue erosions. Diffuse soft tissue edema is noted consistent with cellulitis andmyositis. There is a fluid collection along the plantar aspect of the firstmetatarsal measuring 3.0 x 0.9 x 0.9 cm in greatest dimension. This is deep to the flexor tendon and issuspicious for an abscess. Extensive phlegmonous changes are also noted along the dorsum of the footparalleling the first and second metatarsal and metatarsophalangeal junctions which may representdeveloping abscess. Impression dictated by: Nathan Lemus M.D.07/11/2023 2:40 PM Dictation Location: [place] [address] Transcribed By: [facility] 07/11/23 1440 Dictated By: Nathan Lemus II, MD 07/11/23 1430 Signed By: <Electronically signed by Nathan Lemus II, MD inO> 07/11/23 1440 Rohan Chapman DPM IMG MRI PROCEDURES Final Re sult documented in this encounter Visit Diagnoses Not on filedocumented in this encounter Care Teams Perinatal Specialist Relationship Specialty Start Date End Date Tejas Bryant MD PCP - General Cardiology 11/07/22 08/13/23 Tejas Bryant MD [address] [place] [phone] PCP - Devoted 05/26/23 05/25/24 Tejas Bryant MD [address] [place] [phone] PCP - General Family Medicine 08/14/23 documented as of this encounter
--- OUTSIDE RECORDS SUMMARY | 2024-12-30 15:19 | XMS_ITS ---
Author Organization [facility] Address [id number] [place] [address] Care Team Providers Care Frit Burner Name Role Phone Tejas Bryant MD Primary Care Provider [phone] Active Problems Problem Noted Date Diagnosed Date Ischemic stroke 11/20/2024 Stroke-like symptoms 11/19/2024 Stenosis of both internal carotid arteries 11/19 Acute kidney injury superimp osed on stage 3a chronic kidney disease 11/19/2024 Iron deficiency anemia 11/19/2024 Hypokalemia 11/19/2024 Type 2 diabetes mellitus wit h kidney complication, with long-term current use of insulin 11/19/2024 Cigarette nicotine dependence without complicati on 11/19/2024 Carotid artery stenosis, unilateral 11/19/2024 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 associated with type 2 diabetes mellitus 08/31/2024 Vitreous hemorrhage of right eye 08/31/2024 SONYA (acute kidney injury) 12/29/2023 Diabetes mellitus due to und erlying condition with diabetic neuropathy, unspecified 12/29/2023 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 12/29/2023 Hyperlipemia 12/29/2023 History of tracheostomy 12/29/2023 Hyponatremia 12/29/2023 Neuropathy 12/29/2023 Thrombocytosis 12/29/2023 CKD stage 3a, GFR 45-59 ml/min 12/02/2023 MDD (major depressive disord er), recurrent episode, moderate 12/02/2023 Overview (11/19/2024): Last Assessment & Plan: Increased symptoms and increase seroquel and zoloft. Chronic heart failure with p reserved ejection fraction (HFpEF) 11/06/2023 Overview (11/19/2024): Last Assessment & Plan: Edema controlled and follow with specialists. MICHAEL (obstructive sleep apnea) 11/06/2023 Overview (11/19/2024): Last Assessment & Plan: Witnessed apnea in hospital and check sleep study. Diabetic polyneuropathy 10/02/2023 Overview (11/19/2024): Last Assessment & Plan: Neuropathy controlled with gabapentin and continue. 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 PSA 6 months ==== 07/22/2019 ==== pt lost to f/u. Needs psa +++++++++ 07/22/2019 ALLSCRIPTS SUMMARY +++++++++++ ====December 2012 ==== ####### December 2012 right-sided nerve sparing da Shira prostatectomy Calypso 3+4 equals 7 left side much greater than right side. Focal extraprostatic extension as well as involvement of left seminal vesicle. All margins negative lymph nodes negative. 08/17/2014 04:18:24 pm - ====January 2013 ==== PSA undetectable. ==== June 2013 ==== patient needs PSA. We'll do so and also repeat one in 3 months return to clinic thereafter ==== July 2014 ==== PSA undetectable. It has been one year we'll obtain PSA in 4 months ==== July 2014 ==== PSA in 4 months Assessment & Plan (01/21/2024 2:44 PM EDT): We will see him back in one year with a PSA or sooner if any problems Assessment & Plan (12/04/2022 4:21 PM EDT): We will have him get his PSA in 6 months. I will just call him with the results. We will see him back in one year with another PSA Assessment & Plan (01/02/2022 4:33 PM EDT): He will go to the lab in February to have his 6 month PSA drawn. I will call him with the results. Assuming that is undetectable, we will see him in August 2022 with a PSA. Assessment & Plan (03/05/2021 1:19 PM EDT): PSA remains undetectable excellent finding. PSA in 6 months Assessment & Plan (08/14/2020 12:44 PM EDT): PSA undetectable. PSA 6 month Phimosis 07/22/2019 Overview (08/14/2020): ==== 08/14/2020 ==== wound check is good ==== 12/20/2019 ==== ### status post circumcision pathology is benign. Return clinic 6 weeks for wound check ==== 07/22/2019 ==== type pain for phimosis. I do not feel that any topical treatment will help with this phimosis. Patient will need circumcision. Procedure discussed in full detail. Patient does also have a suprapubic fat pad I did explain that he would have some penile skin almost certainly covering the glans postprocedure as well. Assessment & Plan (07/22/2019 10:59 AM EST): Risks and benefits including loss of penis discussed with patient and his . Hypertension 01/06/2017 Essential hypertension, benign 01/06/2017 Overview (11/19/2024): Last Assessment & Plan: BP controlled and monitor PRN. Current Treatment and Therapy Plans No current plan information found. Past Treatment and Therapy Plans No past plan information found. Lifetime Dose Tracking * Chemical Lifetime Dose Automatic Entry Manual Entr y Fluoroscopy 184 mGy 0 mGy 184 mGy
--- OUTSIDE RECORDS SUMMARY | 2024-12-30 15:19 | XMS_ITS | Encounter Summary ---
Author Organization [facility] Address [address] [place] [address] Care Team Providers Care Painter Ordnance Name Role Phone Tejas Bryant MD Primary Care Provider [phone] Encounter Details Date Type Department Care Team (Late st Contact Info) Description 09/18/2023 Lab Requisition [facility] Lab [address] [place] [phone] Rohan Shin MD [address] [place], [place] [id number] Social History Tobacco Use Types Packs/Day Years [...] Priority Date/Time Associated Diagnosis Comments CBC Routine 09/19/2023 5:30 AM EDT PHOSPHORUS Routine 09/19/2023 5:30 AM EDT MAGNESIUM Routine 09/19/2023 5:30 AM EDT BASIC METABOLIC PANEL Routine 09/19/2023 5:30 AM EDT documented in this encounter Results * (ABNORMAL) CBC (09/19/2023 5:30 AM EDT) Auto WBC 9.83 4.00 - 10.60 10*3/uL 09/19/2023 6:39 AM EDT [facility] ([facility]) RBC 3.11(L) 4.20 - 5.70 10*6/uL 09/19/2023 6:39 AM EDT [facility] ([facility]) Hemoglobin 9.2(L) 13.0 - 17.0 g/dL 09/19/2023 6:39 AM EDT [facility] ([facility]) Hematocrit 28.8(L) 39.0 - 55.0 % 09/19/2023 6:39 AM EDT [facility] ([facility]) MCV 92.6 82.0 - 98.0 fL 09/19/2023 6:39 AM EDT [facility] ([facility]) MCH 29.6 27.0 - 33.0 pg 09/19/2023 6:39 AM EDT [facility] ([facility]) MCHC 31.9(L) 32.0 - 35.0 g/dL 09/19/2023 6:39 AM EDT [facility] ([facility]) RDW 17.1(H) 11.5 - 15.0 % 09/19/2023 6:39 AM EDT [facility] ([facility]) Platelets 512(H) 150 - 400 10*3/uL 09/19/2023 6:39 AM EDT [facility] ([facility]) Blood Venous blood specimen / Unknown Venipuncture / Unknown 09/19/2023 5:30 AM EDT 09/19/2023 6:16 AM EDT us Rohan Shin MD LAB BLOOD ORDERABLES Final Result [facility] ([facility]) [address] [place] [address] * (ABNORMAL) Phosphorus (09/19/2023 5:30 AM EDT) Phosphorus 5.2(H) 2.5 - 5.0 mg/dL 09/19/2023 7:03 AM EDT [facility] ([facility]) Blood Venous blood specimen / Unknown Venipuncture / Unknown 09/19/2023 5:30 AM EDT 09/19/2023 6:16 AM EDT Rohan Shin MD LAB BLOOD ORDERABLES Final Result Performing Organization Address City/[facility]/ZIP Co de Phone Number [facility]) [address] [place] [address] * Magnesium (09/19/2023 5:30 AM EDT) [facility] Magnesium 1.9 1.9 - 2.7 mg/dL 09/19/2023 7:03 AM EDT [facility] ([facility]) Blood Venous blood specimen / Unknown Venipuncture / Unknown 09/19/2023 5:30 AM EDT 09/19/2023 6:16 AM EDT us Rohan Shin MD LAB BLOOD ORDERABLES Final Result Performing Organization Address City/[facility] Co de Phone Number [facility]) [address] [place] [phone] * (ABNORMAL) Basic metabolic panel (09/19/2023 5:30 AM EDT) [facility] Sodium 139 136 - 145 mmol/L 09/19/2023 8:16 AM EDT [facility]) Potassium 4.5 3.5 - 5.1 mmol/L 09/19/2023 8:16 AM EDT [facility] ([facility]) Chloride 109(H) 98 - 107 mmol/L 09/19/2023 8:16 AM EDT [facility] ([facility]) CO2 21 21 - 31 mmol/L 09/19/2023 8:16 AM EDT [facility] ([facility]) BUN 35(H) 7 - 25 mg/dL 09/19/2023 8:16 AM EDT [facility] ([facility]) Creatinine 1.37(H) 0.70 - 1.30 mg/dL 09/19/2023 8:16 AM EDT [facility] ([facility]) Glucose 45(LL) 70 - 100 mg/dL 09/19/2023 8:16 AM EDT [facility] ([facility]) Calcium 8.1(L) 8.6 - 10.3 mg/dL 09/19/2023 8:16 AM EDT [facility] ([facility]) Anion Gap 14 7 - 20 mmol/L 09/19/2023 8:16 AM EDT [facility] ([facility]) eGFR 55.1(L) >60.0 mL/min/1. 73m*2 09/19/2023 8:16 AM EDT [facility] ([facility]) Comment:[facility] s estimated glomerular filtration rate (eGFR) [...] any one group of individuals. BUN/Creatinine Ratio 25.5 08/25 8:16 AM EDT [facility] ([facility]) Blood Venous blood specimen / Unknown Venipuncture / Unknown 09/19/2023 5:30 AM EDT 09/19/2023 6:16 AM EDT us Rohan Shin MD LAB BLOOD ORDERABLES Final Result [facility] ([facility]) [address] [place] [address] documented in this encounter Visit Diagnoses Not on filedocumented in this encounter Additional Health Concerns Infection Onset Date Last Indicated Resolved Time CRE 08/29/2023 08/29/2023 documented as of this encounter Care Teams Painter Ordnance Relationship Specialty Start Date End Date Tejas Bryant MD [address] [facility] [place] [address] PCP - General Family Medicine 12/29/23 documented as of this encounter
--- OUTSIDE RECORDS SUMMARY | 2024-12-30 15:19 | XMS_ITS | Clinical Summary ---
Author Organization [facility] Address [address] [place] [address] Care Team Providers Care Supervisory Lifeguard Name Role Phone Tejas Bryant MD Primary Care Provider [phone] Allergies Active Allergy Reactions Criticality Noted Date Comments Cefepime Hives 06/26/2023 Lisinopril Other,Rash Low 01/06/2017 Metformin Other 01/06/2017 Kidney pain Other Reaction(s): Other (See Comments) Kidney pain Vancomycin Unknown 09/01/2024 Medications amLODIPine (Norvasc) 10 mg tablet Take 10 mg by mouth in the morning. Active atorvastatin (Lipitor) 40 mg tablet Take 40 mg by mouth at bedtime. 0 Active bumetanide (Bumex) 2 mg tablet Take 2 mg by mouth in the morning. Active clopidogrel (Plavix) 75 mg tablet Take 75 mg by mouth in the morning. Active famotidine (Pepcid) 40 mg tablet 40 mg twice a day. A ctive gabapentin (Neurontin) 300 mg capsule Take 300 mg by mouth three times daily. Active Lantus Solostar U-100 Insulin 100 unit/mL (3 mL) injection pen INJECT 20 UNITS SUBCUTANEOUSLY at BREAKFAST and AT BEDTIME 4 Active insulin lispro (HumaLOG) 100 unit/mL injection Inject under the skin. Active metoprolol succinate XL (Toprol-XL) 50 mg 24 hr tablet Take 50 mg by mouth in the morning. Active sertraline (Zoloft) 100 mg tablet Take 100 mg by mouth in the morning. Active sevelamer carbonate (Renvela) 800 mg tablet Take 1,600 mg by mouth with breakfast, with lunch, and with evening meal. Active traZODone (Desyrel) 50 mg tablet Take 50 mg by mouth at bedtime. Active cholecalcifero l (Vitamin D-3) 50 MCG (1999 UT) tablet Take 2,000 Units by mouth in the morning. Active furosemide (Lasix) 40 mg tablet Take 2 tablets by mouth Twice daily at 6am and 6pm. 4 Active hydrALAZINE (Apresoline) 50 mg tablet Take 1 tablet by mouth every 6 (six) hours during the day. 5 Active folic acid (Folvite) 1 mg tablet Take 1 mg by mouth in the morning. 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 associated with type 2 diabetes mellitus 08/31/2024 Proliferative diabetic retin opathy of left eye with macular edema associated with type 2 diabetes mellitus 08/31/2024 Vitreous hemorrhage of right eye 08/31/2024 Myoclonus 01/27/2024 Chronic kidney disease, stage IV (severe) 2023 SONYA (acute kidney injury) 12/29/2023 Anemia of renal disease 12/29/2023 BMI 29.0-29.9,adult 12/29/2023 Cellulitis of left foot 12/29/2023 CHF (congestive heart failure) 12/29/2023 Acute hypoxic respiratory failure 12/29/2023 Constipation 12/29/2023 Diabetic foot infection 12/29/2023 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 12/29/2023 Dietary counseling and surveillance 12/29/2023 Elevated troponin level not due to acute coronar y syndrome 12/29/2023 Encephalopathy 12/29/2023 ESRD (end stage renal disease) 12/29/2023 Gangrene of left foot 12/29/2023 Hemodialysis patient 12/29/2023 History of tracheostomy 12/29/2023 Hyperlipemia 12/29/2023 Hyponatremia 12/29/2023 Leukocytosis 12/29/2023 Neuropathy 12/29/2023 Osteomyelitis 12/29/2023 Osteomyelitis of left foot 12/29/2023 PAD (peripheral artery disease) 12/29/2023 Sciatica, left side 12/29/2023 Sepsis 12/29/2023 Thrombocytosis 12/29/2023 Diabetes mellitus due to und erlying condition with diabetic neuropathy, unspecified 12/29/2023 CKD stage 3a, GFR 45-59 ml/min 12/02/2023 BRYCE (generalized anxiety disorder) 12/02/2023 Overview (12/29/2023): Last Assessment & Plan: Increased symptoms and increase seroquel and zoloft. Use hydroxyzine PRN. Hyperphosphatemia 12/02/2023 MDD (major depressive disord er), recurrent episode, moderate 12/02/2023 Overview (12/29/2023): Last Assessment & Plan: Increased symptoms and increase seroquel and zoloft. Primary insomnia 12/02/2023 Overview (12/29/2023): Last Assessment & Plan: Not sleeping as well and increase seroquel. Chronic heart failure with p reserved ejection fraction (HFpEF) 11/06/2023 Overview (12/29/2023): Last Assessment & Plan: Edema controlled and follow with specialists. MICHAEL (obstructive sleep apnea) 11/06/2023 Overview (12/29/2023): Last Assessment & Plan: Witnessed apnea in hospital and check sleep study. Diabetic polyneuropathy 10/02/2023 Overview (12/29/2023): Last Assessment & Plan: Neuropathy controlled with gabapentin and continue. DDD (degenerative disc disease), lumbar 10/02/19 24 Dyslipidemia 10/02/2023 Gastroesophageal reflux disease 10/02/2023 Ocular palsy of right eye 10/02/2023 Essential hypertension, benign 10/02/2023 Overview (12/29/2023): Last Assessment & Plan: BP controlled and monitor PRN. Vitamin D deficiency 10/02/2023 Phimosis 07/22/2019 Overview (12/29/2023): ==== 08/14/2020 ==== wound check is good [...] certainly covering the glans postprocedure as well. Last Assessment & Plan: Risks and benefits including loss of penis discussed with patient and his . Prostate cancer 07/22/2019 Overview (12/29/2023): ====12/04/22==== PSA <0.01 ====01/02/22====PSA 08/24/21: <0.01 ==== 12/20/2019 ==== most recent PSA undetectable. PSA 6 months ==== 07/22/2019 ==== pt lost to f/u. Needs psa +++++++++ 07/22/2019 [facility] SUMMARY +++++++++++ ====December 2012 ==== ####### December 2012 right-sided nerve sparing da [place] prostatectomy [place] 3+4 equals 7 left side much greater [...] July 2014 ==== PSA in 4 months Last Assessment & Plan: We will have him get his PSA in 6 months. I will just call him with the results. We will see him back in one year with another PSA Primary hypertension 01/06/2017 Family History Medical History Relation Name Comments Diabetes Mother Relation Name Status Comments Mother Social History Tobacco Use Types Packs/Day Years Used Date Smoking Tobacco: Former Cigarettes Q uit: 06/2023 Smokeless Tobacco: Current Tobacco Cessation:Ready to Q uit: Not Asked; Counseling Given: Not Answered Alcohol Use Standard Drinks/Week Comments Not Currently 0 (1 standard drink = 0.6 oz pur e alcohol) [place] Safety & Environment Answer Date Rec orded [...] on file Sexual Orientation Not on file Last Filed Vital Signs Vital Sign Reading Time Taken Comments Blood Pressure 101/59 09/01/2024 2:41 PM EDT Pulse 66 09/01/2024 2:41 PM EDT Temperature - - Respiratory Rate - - Oxygen Saturation 95% 09/01/2024 2:41 PM EDT Inhaled Oxygen Concentration - - Weight 84.4 kg (186 lb) 09/01/2024 2:41 PM EDT Height 172.7 cm (5' 8 ) 09/01/2024 2:41 PM EDT Body Mass Index 28.28 09/01/2024 2:41 PM EDT Plan of Treatment Health Maintenance Due Date Last Done Comments CT Colonography 1950 Colonoscopy 1950 Colorectal Cancer Screening 1950 Diabetes: Hemoglobin A1C 1950 FIT-DNA 1951 FIT 1950 FOBT 1950 Medicare Annual Wellness (AWV) 1950 Sigmoidoscopy 1950 Diabetes: Retinopathy Screening 12/20/1961 Depression Screening 1963 Pneumococcal Vaccine: 50+ Ye ars (1 of 2 - PCV) 12/20/1970 Adult Tetanus 12/20/1973 Zoster Vaccines (1 of 2) 12/20/2001 Fall Risk Screening 12/20/2016 COVID-19 Vaccine (1 - 2023-2 5 season) 2024 Influenza Vaccine (#1) 2025 HIB Vaccines Aged Out No longer eligi ble based on patient's age to complete this topic HPV Vaccines Aged Out No longer eligi ble based on patient's age to complete this topic IPV Vaccines Aged Out No longer eligi ble based on patient's age to complete this topic Meningococcal B Vaccine Aged Out No l onger eligible based on patient's age to complete this topic Meningococcal Vaccine Aged Out No joseph leydi eligible based on patient's age to complete this topic Rotavirus Vaccines Aged Out No longer eligible based on patient's age to complete this topic Additional Health Concerns Infection Onset Date Last Indicated CRE 08/29/2023 08/29/[address]23 [address] [place] [phone] [employer] Care Teams Supervisory Lifeguard Relationship Specialty Start Date End Date Tejas Bryant MD [facility] Saúl Ocampo [place]ha [place], [place] [id number] PCP - General Family Medicine 12/29/23
--- OUTSIDE RECORDS SUMMARY | 2024-12-30 15:19 | XMS_ITS | Clinical Summary ---
Author Organization [facility] Address [id number] [address] [place] [address] Care Team Providers Care Distribution Clerk Name Role Phone Tejas Bryant MD Primary Care Provider [phone] Allergies Active Allergy Reactions Criticality Noted Date Comments Cefepime Hives,Shortness Of Breath High 06/26/2023 Lisinopril Angioedema,Facial Swelling High 01/06/2017 Metformin Other (See Comments) Medium 01/06/2017 Kidney pain Vancomycin High 05/03/2024 Other Reaction(s): kidney damage, renal failure, Medications atorvastatin (LIPITOR) 40 mg tablet Take 1 tablet (40 mg total) by mouth nightly. 07/07/2019 Active metoprolol succinate XL (TOPROL XL) 50 mg 24 hr tablet Take 1 tablet (50 mg total) by mouth in the morning. 05/06/2022 Active insulin lispro (HumaLOG) 100 unit/mL injection Inject under the skin in the morning and at noon and in the evening. Inject before meals. Sliding scale based on blood sugar. Active amLODIPine (NORVASC) 10 mg tablet Take 1 tablet (10 mg total) by mouth in the morning. 10/14/2023 Active bumetanide (BUMEX) 2 mg tablet Take 1 tablet (2 mg total) by mouth daily. 10/29/2023 Active melatonin (CIRCADIN) capsule Take 1 capsule (5 mg total) by mouth nightly. 01/06/2024 Active sertraline (ZOLOFT) 100 mg tablet Take 1 tablet (100 mg total) by mouth in the morning. 01/09/2024 Active sevelamer (RENVELA) 800 mg tablet Take 1 tablet (800 mg total) by mouth in the morning and 1 tablet (800 mg total) at noon and 1 tablet (800 mg total) in the evening. Take with meals. 12/02/2023 Active insulin glargine (LANTUS, SEMGLEE) 100 unit/mL (3 mL) insulin pen Inject 16 Units under the skin in the morning and at bedtime. 01/05/2024 Active hydrALAZINE (APRESOLINE) 50 mg tablet Take 1.5 tablets (75 mg total) by mouth 3 (three) times a day. 07/12/2024 Active ferrous sulfate 325 (65 FE) MG tablet Take 1 tablet (325 mg total) by mouth in the morning and 1 tablet (325 mg total) before bedtime. 04/07/2024 Active FREESTYLE DEB 2 PLUS SENSOR device 11/16/2024 Active FREESTYLE DEB 2 SENSOR kit USE DIRECTED to test BLOOD SUGAR change EVERY 14 days 10/19/2024 Active folic acid (FOLVITE) 1 mg tablet Take 1 tablet (1,000 mcg total) by mouth in the morning. Active gabapentin (NEURONTIN) 300 mg capsule Take 1 capsule (300 mg total) by mouth 3 (three) times a day. 11/16/2024 Active traMADoL (ULTRAM) 50 mg tablet Take 1 tablet (50 mg total) by mouth 4 (four) times a day as needed for pain. Active traZODone (DESYREL) 100 mg tablet Take 1 tablet (100 mg total) by mouth nightly. 04/15/2024 Active clopidogreL (PLAVIX) 75 mg tablet Take 1 tablet (75 mg total) by mouth in the morning. 90 tablet 11/24/2024 Active aspirin 81 mg chewable tablet Chew 1 tablet (81 mg total) and swallow in the morning. 90 tablet 11/24/2024 Active Active Problems Problem Noted Date Diagnosed [...] 08/31/2024 Vitreous hemorrhage of right eye 08/31/2024 SOYNA (acute kidney injury) 12/29/2023 Diabetes mellitus due [...] 2012 right-sided nerve sparing da Shira prostatectomy Grecia 3+4 equals 7 left side much greater [...] & Plan: BP controlled and monitor PRN. Encounters Date Type Department Care Team Description 11/24/[address] [facility] Neurology, A Department of [facility] [address] [address] [place] [address] Corrine Terrell RN 11/22/2024 10:47 AM EDT Anesthesia Event [facility] - Cardiac Cath [address] [place] [address] Michael Reardon MD 11/22/2024 9:00 AM EDT - 11/22/2024 10:30 AM EDT Surgery [facility] - Cardiac Cath [address] [place] [address] Juan Carrasco MD Stent carotid with embolic protection right [19375 (CPT )] 11/19/2024 3:06 PM EDT - 11/23/2024 6:06 PM EDT Hospital Encounter [facility] - GEN 9 Acute [address] [place] [address] Abraham Joshua MD Bilateral carotid artery stenosis (Primary Dx); Carotid artery stenosis, unilateral; TIA (transient ischemic attack) Discharge Disposition: Home 11/19/2024 6:16 AM EDT - 11/19/2024 1:55 PM EDT Hospital Encounter [facility] - Acute Care [address] [place] [address] Saúl Gaitan MD Shah, Jagruti Nimit, MD Stenosis of right internal carotid artery (Primary Dx); Stroke-like symptoms; SONYA (acute kidney injury); Altered mental status, unspecified altered mental status type Discharge Disposition: Another Hospital 11/19/2024 Travel from Last 3 Months Immunizations No known immunizations Family History Medical History Relation Name Comments Diabetes Mother Stroke Mother Lupus Sister Relation Name Status Comments Father Alive Mother Alive Sister Social History Tobacco Use Types Packs/Day Years Used Date Smoking Tobacco: Some Days Cigars Smokeless Tobacco: Never Tobacco Cessation:Ready to Q uit: Not Asked; Counseling Given: Not Answered Comments:2 per day Alcohol Use Standard Drinks/Week Comments Not Currently 0 (1 standard drink = 0.6 oz pur e alcohol) [facility] Utilities Answer Date Recorded In the past 12 months has e Visys, gas, oil, or water [employer] threatened to shut off services in your home? No 11/19/2024 PRAPARE - Transportation Answer Date Re corded In the past 12 months, has l ack of transportation kept you from medical appointments or from getting medications? No 10/25 In the past 12 months, has l ack of transportation kept you from meetings, work, or from getting things needed for daily living? No 11/19/2024 Housing Instability Answer Date Recorde d Are you worried or concerned that in the next two months you may not have stable housing that you own, rent or stay in as a part of a household? No 11/19/2024 Childcare Answer Date Recorded Childcare Unknown 11/03/2018 Employment Answer Date Recorded Employment Unknown 11/03/2018 Hunger Screening Answer Date Recorded Within the past 12 months we worried whether our food would run out before we got money to buy more. Never True 11/20/2024 Within the past 12 months th e food we bought just didn't last and we didn't have money to get more. Never True 11/20/2024 Purpose - Life Answer Date Recorded Purpose and direction in life Unknown Sex and Gender Information Value Date Recorded Sex Assigned at Not on file Legal Sex Male 7:11 PM EDT Gender Identity Not on file Sexual Orientation Not on file Last Filed Vital Signs Vital Sign Reading Time Taken Comments Blood Pressure 144/84 11/23/2024 3:48 PM EDT Pulse 68 11/23/2024 3:48 PM EDT Temperature 36.8 C (98.3 F) 11/23/2024 3:48 PM EDT Respiratory Rate 16 11/23/2024 3:48 PM EDT Oxygen Saturation 97% 11/23/2024 3:48 PM EDT Inhaled Oxygen Concentration - - Weight 80.9 kg (178 lb 5.6 oz) 11/22/2024 5:00 A M EDT Height 172.7 cm (5' 8 ) 11/22/2024 5:00 AM EDT Body Mass Index 27.12 11/22/2024 5:00 AM EDT Plan of Treatment Upcoming Encounters Date Type Department Care Team (Late st Contact Info) Description 01/04/2025 4:00 PM EDT Office Visit [facility], A Department of [address] [place] [id number] Octavio Medrano MD [address] [place] [address] [address] [place] [address] 01/26/2025 3:15 PM EDT Office Visit [facility] [address] [place] [address] [place] [address] [place] [address] Michael Armando MD [address] [place] [id number] Health Maintenance Due Date Last Done Comments Diabetic Ophthalmology Exam 1951 Tobacco Counseling 1951 Depression Screening 1963 Adult BMI Follow Up Plan 12/20/1969 Diabetic Foot Exam 12/20/1969 DTaP,Tdap and Td Vaccines (1 - Tdap) 12/20/1970 Zoster (Shingles) Vaccine (1 of 2) 12/20/1970 Abdominal Aortic Aneurysm (AAA) Screen 12/20/2016 Fall Risk Screening 12/20/2016 Influenza Vaccine 01/24/2025 Tobacco Screening 11/19/2025 11/19/2024 Adult BMI Screening 11/22/2025 11/22/2024 Goals Goal Patient Goal Type Associated Problems Recent Progress Patient-Stated? Author <enter goal here> General Yes Christine Sawyer, RN Note: Evaluation of progress towards goal: safe discharge Medical Devices Implanted Type Area Senior Grants Officer Device Identifier Shelf Expiration Date Model / Serial / Lot Lens Iol Ultrasert 18.0d - [id number] - [id number] Implanted:Qty: 1 on 06/06/2022 by Kim Juan MD at [facility] [employer]ens [employer] 12/04/2024 AU00T0 18.0 / [id number] / Lens Iol Ultrasert 18.0d - [id number] - [id number] Implanted:Qty: 1 on 06/20/2022 by Kim Juan MD at [facility] Lens Right: Eye [employer] 12/03/2024 AU00T0 18.0 / [id number] / NA Procedures Procedure Name Priority Date/Time Associated Diagnosis Comments BEDSIDE GLUCOSE Routine 11/23/2024 3:51 PM EDT BEDSIDE GLUCOSE Routine 11/23/2024 12:32 PM EDT BEDSIDE GLUCOSE Routine 11/23/2024 7:54 AM EDT CBC WITH AUTO DIFFERENTIAL Routine 11/23/2024 6:05 AM EDT BASIC METABOLIC PANEL Routine 11/23/2024 6:05 AM EDT BEDSIDE GLUCOSE Routine 11/22/2024 10:15 PM EDT BEDSIDE GLUCOSE Routine 11/22/2024 4:43 PM EDT BEDSIDE GLUCOSE Routine 11/22/2024 3:08 PM EDT BEDSIDE GLUCOSE Routine 11/22/2024 11:46 AM EDT NEURO INVASIVE Routine 11/22/2024 11:15 AM EDT Carotid artery stenosis, unilateral BEDSIDE GLUCOSE Routine 11/22/2024 8:04 AM EDT CBC WITH AUTO DIFFERENTIAL Routine 11/22/2024 2:45 AM EDT BASIC METABOLIC PANEL Routine 11/22/2024 2:45 AM EDT BEDSIDE GLUCOSE Routine 11/21/2024 9:15 PM EDT BEDSIDE GLUCOSE Routine 11/21/2024 4:10 PM EDT VASC CAROTID DUPLEX BILATERAL STAT 11/21/2024 12:45 PM EDT BEDSIDE GLUCOSE Routine 11/21/2024 10:56 AM EDT BEDSIDE GLUCOSE Routine 11/21/2024 8:27 AM EDT CBC WITH AUTO DIFFERENTIAL Routine 11/21/2024 3:30 AM EDT BASIC METABOLIC PANEL Routine 11/21/2024 3:29 AM EDT APTT Routine 11/21/2024 3:29 AM EDT BEDSIDE GLUCOSE Routine 11/20/2024 9:42 PM EDT BEDSIDE GLUCOSE Routine 11/20/2024 6:14 PM EDT EEG Routine 11/20/2024 3:41 PM EDT BEDSIDE GLUCOSE Routine 11/20/2024 11:33 AM EDT POTASSIUM Routine 11/20/2024 11:32 AM EDT BEDSIDE GLUCOSE Routine 11/20/2024 9:13 AM EDT CBC WITH AUTO DIFFERENTIAL Routine 11/20/2024 3:41 AM EDT BASIC METABOLIC PANEL Routine 11/20/2024 3:41 AM EDT LIPID PROFILE Routine 11/20/2024 3:41 AM EDT BEDSIDE GLUCOSE Routine 11/19/2024 9:09 PM EDT CBC WITH AUTO DIFFERENTIAL Routine 11/19/2024 9:09 PM EDT PHOSPHORUS Routine 11/19/2024 9:09 PM EDT MAGNESIUM Routine 11/19/2024 9:09 PM EDT COMPREHENSIVE METABOLIC PANEL Routine 11/19/2024 9:09 PM EDT HEMOGLOBIN A1C Routine 11/19/2024 9:09 PM EDT BEDSIDE GLUCOSE Routine 11/19/2024 3:08 PM EDT MR BRAIN WO CONT Routine 11/19/2024 12:1 1 PM EDT ECHO COMPLETE WO CONTRAST Routine 11/19/2024 11:20 AM EDT XR CHEST 1 VW STAT 11/19/2024 7:11 AM EDT LIPID PROFILE Add-On 11/19/2024 7:11 AM EDT AMMONIA STAT 11/19/2024 7:11 AM EDT LACTATE W/ REFLEX STAT 11/19/2024 7:1 1 AM EDT TROP I, HIGH SENSITIVITY 1 HOUR STAT 11/19/2024 7:11 AM EDT PM ED CRITICAL CARE Routine 11/19/2024 6 :45 AM EDT ED PHYSICIAN NIHSS AND THROMBOLYTIC DECISION Routine 11/19/2024 6:45 AM EDT ECG 12-LEAD STAT 11/19/2024 6:[address] CTA CAROTID STAT 11/19/2024 6:[address] CTA HEAD STAT 11/19/2024 6:20 AM EDT IRON AND TIBC Add-On 11/19/2024 6:12 AM EDT HEMOGLOBIN A1C Add-On 11/19/2024 6:12 AM EDT ETHANOL STAT Add-on 11/19/2024 6:12 AM EDT THYROID PROFILE INCLUDES TSH FT4 STAT Add-on 11/19/2024 6:12 AM EDT SALICYLATE LEVEL STAT Add-on 11/19/2024 6:12 AM EDT ACETAMINOPHEN LEVEL STAT Add-on 11/19/2024 6 :12 AM EDT LIPASE STAT Add-on 11/19/2024 6:12 AM EDT MAGNESIUM STAT Add-on 11/19/2024 6:12 AM EDT TROPONIN I, HIGH SENSITIVITY 0 HOUR STAT 11/19/2024 6:12 AM EDT LIVER PANEL STAT 11/19/2024 6:12 AM EDT CBC WITH AUTO DIFFERENTIAL STAT 11/19/2024 6:12 AM EDT APTT STAT 11/19/2024 6:12 AM EDT PROTIME & INR STAT 11/19/2024 6:12 AM EDT BASIC METABOLIC PANEL STAT 11/19/2024 6:12 AM EDT TROPONIN I, HIGH SENSITIVITY 0 HOUR STAT 11/19/2024 6:[address] BRAIN WO CONT STROKE ALERT STAT 11/19/2024 6:11 AM EDT BEDSIDE GLUCOSE Routine 11/19/2024 6:11 AM EDT from Last 3 Months Results * (ABNORMAL) Bedside Glucose *Place/Obtain serum glucose if >500 per glucometer. (11/23/2024 3:51 PM EDT) Only the most recent of19 resultswithin the time period is included. Bedside Glucose (POC) 133(H) 65 - 99 mg/dL 11/23/2024 3:53 PM EDT [facility] Blood specimen (specimen) 11/23/2024 3:51 PM EDT 11/23/2024 3:53 PM EDT us Abraham Joshua MD POINT OF CARE TEST ORDERABLES Fi nal Result [facility] [address] [facility] [place] [address], * (ABNORMAL) CBC auto differential (11/23/2024 6:05 AM EDT) Only the most recent of6 resultswithin the time period is included. WBC 12.1(H) 4 - 11 x10E9/L 11/23/2024 6:55 AM EDT [facility] RBC Count 3.14(L) 4.1 - 5.7 X10E12/L 11/23/2024 6:55 AM EDT [facility] Hemoglobin 9.5(L) 13 - 17 g/dL 11/23/2024 6:55 AM EDT [facility] Hematocrit 28.0(L) 39 - 50 % 11/23/2024 6:55 AM EDT [facility] MCV 89 80 - 100 fL 11/23/2024 6:55 AM EDT [facility] MCH 30.2 27 - 34 pg 11/23/2024 6:55 AM EDT [facility] MCHC 33.9 32 - 36 g/dL 11/23/2024 6:55 AM EDT [facility] RDW 12.9 11.5 - 15 % 11/23/2024 6:55 AM EDT [facility] Platelet Count 299 150 - 450 X10E9/L 11/23/2024 6:55 AM EDT [facility] MPV 8.4 7 - 12 fL 11/23/2024 6:55 AM EDT [facility] Neutrophils % 73.7 % 11/23/2024 6:55 AM EDT [facility] Lymphocytes % 14.7 % 11/23/2024 6:55 AM EDT [facility] Monocytes % 10.3 % 11/23/2024 6:55 AM EDT [facility] Eosinophils % 0.6 % 11/23/2024 6:55 AM EDT [facility] Basophils % 0.7 % 11/23/2024 6:55 AM EDT [facility] Neutrophils Absolute (A) 8.9(H) 1.5 - 6.6 10*3/uL 11/23/2024 6:55 AM EDT [facility] Lymphocytes Absolute 1.8 1.0 - 3.5 10*3/uL 11/23/2024 6:55 AM EDT [facility] Monocytes Absolute 1.3(H) 0.0 - 0.9 10*3/uL 11/23/2024 6:55 AM EDT [facility] Eosinophils Absolute 0.1 0.0 - 0.4 10*3/uL 11/23/2024 6:55 AM EDT [facility] Basophils Absolute 0.1 0.0 - 0.2 10*3/uL 11/23/2024 6:55 AM EDT [facility] Differential Type AUTOMATED DIFFERENTIAL 11/23/2024 6:55 AM EDT [facility] Blood Venous blood / Unknown Venipuncture / Unknown 11/23/2024 6:05 AM EDT 11/23/2024 6:05 AM EDT us Kirti Cheng MD LAB BLOOD ORDERABLES Final Resu lt [facility] [address] [place] [address], [place] [phone] * (ABNORMAL) Basic Metabolic Panel (11/23/2024 6:05 AM EDT) Only the most recent of5 resultswithin the time period is included. SODIUM 139 134 - 146 mmol/L 11/23/2024 7:13 AM EDT [facility] POTASSIUM 4.0 3.5 - 5.0 mmol/L 11/23/2024 7:13 AM EDT [facility] CHLORIDE 106 98 - 109 mmol/L 11/23/2024 7:13 AM EDT [facility] CARBON DIOXIDE 22 22 - 32 mmol/L 11/23/2024 7:13 AM EDT [facility] ANION GAP 11 5 - 15 mmol/L 11/23/2024 7:13 AM EDT [facility] BLOOD UREA NITROGEN 27 5 - 27 mg/dL 11/23/2024 7:13 AM EDT [facility] CREATININE 1.43(H) 0.60 - 1.30 mg/dL 11/23/2024 7:13 AM EDT [facility] Comment:METHOD TRACEABLE TO IDMS STANDARD GLUCOSE 137(H) 65 - 99 mg/dL 11/23/2024 7:13 AM EDT [facility] CALCIUM 8.7 8.5 - 10.5 mg/dL 11/23/2024 7:13 AM EDT [facility] EGFR Non-Race Dependent 52(L) >=60 ml/min/1.7 3sq.m 11/23/2024 7:13 AM EDT [facility] Comment: Reported eGFR is based on the CKD-EPI 2020 equation that does not use a race coefficient. Blood Venous blood / Unknown Venipuncture / Unknown 11/23/2024 6:05 AM EDT 11/23/2024 6:05 AM EDT Kirti Cheng MD LAB BLOOD ORDERABLES Final Resu lt [facility] [address] [place] [address], [place] [phone] * Vas carotid duplex bilateral (11/21/2024 12:45 PM EDT) Anatomical Region Laterality Modality Vascular Bilateral Ultrasound 11/21/2024 12:5 4 PM EDT Narrative 11/22/2024 4:53 PM EDT Right: Plaque with significant spectral Doppler/color flow disturbances; ICA Velocity 166/36 cm/sec, ICA/CCA Ratio 2.5. Antegrade vertebral artery flow. Left: Plaque with borderline significant spectral Doppler/color flow disturbances; ICA Velocity 147/43cm/sec, ICA/CCA Ratio 1.9. Antegrade vertebral artery flow. General: In-patient, bedside examination. Incidental finding of right mixed echogenic mass adjacent to the distal common carotid artery without color flow. Conclusions: RIGHT:50-69% stenosis of the internal carotid artery. Antegrade vertebral artery flow.LEFT:Borderline 50% stenosis of the internal carotid artery. Antegrade vertebral artery flow.Incidental finding of right neck mass may warrant further evaluation as clinically indicated. Recommendations: Any questions prior to finalization, please call the reading physician during normal business hours at the phone number beside their name. Procedure Note Maria R Jean-Baptiste DO - 11/22/2024 Right: Plaque with significant spectral Doppler/color flow disturbances;ICA Velocity 166/36 cm/sec, ICA/CCA Ratio 2.5. Antegrade vertebral arteryflow. Left: Plaque with borderline significant spectral Doppler/color flowdisturbances; ICA Velocity 147/43cm/sec, ICA/CCA Ratio 1.9. Antegradevertebral artery flow. General: In-patient, bedside examination. Incidental finding of rightmixed echogenic mass adjacent to the distal common carotid artery withoutcolor flow. Conclusions: RIGHT:50-69% stenosis of the internal carotid artery.Antegrade vertebral artery flow.LEFT:Borderline 50% stenosis of theinternal carotid artery. Antegrade vertebral artery flow.Incidentalfinding of right neck mass may warrant further evaluation as clinically indicated. Recommendations: Any questions prior to finalization, please call thereading physician during normal business hours at the phone number besidetheir name. us Nadia Irving MD CV VASCULAR ORDERABLES Final Result * APTT (11/21/2024 3:29 AM EDT) Only the most recent of2 resultswithin the time period is included. APTT 31 26 - 37 sec 11/21/2024 4:49 AM EDT [facility] Blood Venous blood / Unknown Venipuncture / Unknown 11/21/2024 3:29 AM EDT 11/21/2024 3:29 AM EDT us Nadia Irving MD LAB BLOOD ORDERABLES Final R esult [facility] [address] [place] [address], [place] [phone] * EEG (11/20/2024 3:41 PM EDT) Narrative MANUALLY TRANSCRIBED RESULTS - 11/20/2024 5:54 PM EDT Images from the original result were not included. UT Routine EEG Report Length of Study: 30 minutes EEG Service Date: 11/20/2024 History: 73 year old man with concern for seizures Medications: Gabapentin, Melatonin, Sertraline, Tramadol, Trazodone Technique: This EEG was acquired with electrodes placed according to the 10-20 electrode placement system. A single EKG channel was recorded for cardiac rhythm monitoring. The quality of recording was good. EEG Classification: Normal State of Consciousness: Awake and asleep EEG Findings: 1.) Dominant Rhythm: A PDR of up to 9 Hz was seen, symmetric and reactive 2.) Background: There were multiple waveforms seen throughout the recording. In awake states, there was a normal PDR appreciated as described above. Reactivity to external stimuli was appreciated. Sleep stages N1 and N2 were seen with associated sleep architecture. 3.) Activating procedures: Hyperventilation was performed and did produce slowing. Photic stimulation was performed, but did not produce significant changes. 4.) HR 52-56 BPM, regular Impression: This is a normal awake and asleep EEG. No epileptiform discharges or lateralizing signs were seen. Rosio Sanchez MD [employer] [place] [facility] Nadia Irving MD NEUROLOGY ORDERABLES Final R esult Performing Organization Address City/[facility]/ZIP Co de Phone Number MANUALLY TRANSCRIBED RESULTS * Potassium (11/20/2024 11:32 AM EDT) [facility] POTASSIUM 4.1 3.5 - 5.0 mmol/L 11/20/2024 11:58 AM EDT [facility] Blood Venous blood / Unknown Venipuncture / Unknown 11/20/2024 11:32 AM EDT 11/20/2024 11:40 AM EDT Kirti Cheng MD LAB BLOOD ORDERABLES Final Resu lt Performing Organization Address City/[facility]/ZIP Co de Phone Number [facility] [address] [place] [address], [place] [phone] * (ABNORMAL) Lipid profile (11/20/2024 3:41 AM EDT) Only the most recent of2 resultswithin the time period is included. CHOLESTEROL 109(L) 150 - 200 mg/dL 11/20/2024 4:56 AM EDT [facility] TRIGLYCERIDE 263(H) 27 - 150 mg/dL 11/20/2024 4:56 AM EDT [facility] HDL CHOLESTEROL 29(L) >39 mg/dL 4:56 AM EDT [facility] Comment: HDL <40 mg/dL - High Risk HDL > or = 40mg/dL- Desirable HDL >60 mg/dL - Negative Risk LDL (CALC) 27 <130 mg/dL 11/20/2024 4:56 AM EDT [facility] Comment: LDL <100 mg/dL - Desirable LDL >160 mg/dL - High Risk CHOLESTEROL:HDL 3.8 1.0 - 5.0 4:56 AM EDT [facility] VERY LOW LIPOPROTEIN 53(H) 0 - 30 mg/dL 11/20/2024 4:56 AM EDT [facility] Blood Venous blood / Unknown Venipuncture / Unknown 11/20/2024 3:41 AM EDT 11/20/2024 3:42 AM EDT Kirti Cheng MD LAB BLOOD ORDERABLES Final Resu lt [facility] [address] [place] [address], * Phosphorus (11/19/2024 9:09 PM EDT) PHOSPHORUS 2.6 2.4 - 4.9 mg/dL 11/19/2024 10:06 PM EDT [facility] Blood Venous blood / Unknown 11/19/2024 9:09 PM EDT 11/19/2024 9:18 PM EDT Kirti Cheng MD LAB BLOOD ORDERABLES Final Resu lt [facility] [address] [place] [address], [place] [phone] * Magnesium (11/19/2024 9:09 PM EDT) Only the most recent of2 resultswithin the time period is included. [facility] MAGNESIUM 2.0 1.8 - 2.6 mg/dL 11/19/2024 10:06 PM EDT [facility] Blood Venous blood / Unknown 11/19/2024 9:09 PM EDT 11/19/2024 9:18 PM EDT us Kirti Cheng MD LAB BLOOD ORDERABLES Final Resu lt [facility] [address] [place] [address], * (ABNORMAL) Hemoglobin A1c (11/19/2024 9:09 PM EDT) Only the most recent of2 resultswithin the time period is included. [facility] HEMOGLOBIN A1C 6.5(H) 4.4 - 5.6 % 11/19/2024 10:19 PM EDT [facility] Comment: ADA Guidelines Result HgbA1c Normal : less than 5.7 % Prediabetes : 5.7 % to 6.4 % Diabetes : > 6.4 % Use with caution in patients with abnormal hemoglobin variants as the half-life of red blood cells and in vivo glycation rates are affected. EST. AVERAGE GLUCOSE 140 mg/dL 11/19/2024 10:19 PM EDT [facility] Blood Venous blood / Unknown 11/19/2024 9:09 PM EDT 11/19/2024 9:18 PM EDT us Kirti Cheng MD LAB BLOOD ORDERABLES Final Resu lt [facility] [address] [place] [address], * (ABNORMAL) Comprehensive metabolic panel (11/19/2024 9:09 PM EDT) SODIUM 139 134 - 146 mmol/L 11/19/2024 10:06 PM [facility] POTASSIUM 3.6 3.5 - 5.0 mmol/L 11/19/2024 10:06 PM [facility] CHLORIDE 105 98 - 109 mmol/L 11/19/2024 10:06 PM [facility] CARBON DIOXIDE 25 22 - 32 mmol/L 11/19/2024 10:06 PM [facility] ANION GAP 9 5 - 15 mmol/L 11/19/2024 10:06 PM [facility] BLOOD UREA NITROGEN 27 5 - 27 mg/dL 11/19/2024 10:06 PM [facility] CREATININE 1.60(H) 0.60 - 1.30 mg/dL 11/19/2024 10:06 PM [facility] Comment:METHOD TRACEABLE TO IDMT STANDARD GLUCOSE 165(H) 65 - 99 mg/dL 11/19/2024 10:06 PM [facility] CALCIUM 8.2(L) 8.5 - 10.5 mg/dL 11/19/2024 10:06 PM [facility] TOTAL PROTEIN 6.0 6.0 - 8.0 g/dL 11/19/2024 10:06 PM [facility] ALBUMIN 3.4 3.2 - 5.3 g/dL 11/19/2024 10:06 PM [facility] ALKALINE PHOSPHATASE 66 39 - 130 U/L 11/19/2024 10:06 PM [facility] AST 14 <=41 U/L 11/19/2024 10:06 PM [facility] ALT 13 <=40 U/L 11/19/2024 10:06 PM [facility] BILIRUBIN,TOTAL 0.3 0.3 - 1.2 mg/dL 11/19/2024 10:06 PM [facility] EGFR Non-Race Dependent 45(L) >=60 ml/min/1.7 3sq.m 11/19/2024 10:06 PM EDT [facility] Comment: Reported eGFR is based on the CKD-EPI 2020 equation that does not use a race coefficient. Blood Venous blood / Unknown 11/19/2024 9:09 PM EDT 11/19/2024 9:18 PM EDT us Kirti Cheng MD LAB BLOOD ORDERABLES Final Resu lt [facility] [address] [place] [address], [place] [phone] * MR brain without contrast (11/19/2024 12:11 PM EDT) Anatomical Region Laterality Modality Neuro, Head, Head and Neck, Neuro Covera N/A Magnetic Resonance 11/19/2024 12:2 0 PM EDT Narrative 11/19/2024 12:27 PM EDT STUDY: MR BRAIN WO CONT INDICATION: acute stroke s/p TNK. Concern for symptomatic R ICA stenosis. TECHNIQUE: * Routine multiplanar multisequence MR imaging of the brain was performed without intravenous contrast. FINDINGS: Significant territorial ischemia, infarct, mass effect, midline shift or extra axial fluid collection. 1.4 x 0.5 cm right parafalcine extra-axial soft tissue lesion, presumed to reflect a meningioma. No hemorrhagic changes. Mild central regular and peripheral volume loss. Mild burden of subcortical, T2/FLAIR hyperintensity, not significantly disproportionate for age. Bilateral lens replacement. Mild mucosal thickening right maxillary sinus. Mastoid air cells are probably peripancreatic trace left mastoid fluid. Major intracranial arterial flow voids appear preserved. Intramuscular fat in the right posterior neck muscle, may reflect a lipoma. IMPRESSION: * No evidence of acute intracranial abnormality, by MR. * 1.4 cm right parafalcine extra-axial lesions, presumed to reflect a meningioma, not significantly changed since 03/26/2023. Finalized by Christian Pop on 11/19/2024 12:27 PM Procedure Note Christian Pop MD - 11/19/2024 STUDY: MR BRAIN WO CONT INDICATION: acute stroke s/p TNK. Concern for symptomatic R ICAstenosis. TECHNIQUE: * Routine multiplanar multisequence MR imaging of the brain was performedwithout intravenous contrast. FINDINGS: Significant territorial ischemia, infarct, mass effect, midline shift orextra axial fluid collection. 1.4 x 0.5 cm right parafalcine extra-axial soft tissue lesion, presumed toreflect a meningioma. No hemorrhagic changes. Mild central regular and peripheral volume loss. Mild burden of subcortical, T2/FLAIR hyperintensity, not significantlydisproportionate for age. Bilateral lens replacement. Mild mucosal thickening right maxillary sinus.Mastoid air cells are probably peripancreatic trace left mastoid fluid.Major intracranial arterial flow voids appear preserved. Intramuscular fat in the right posterior neck muscle, may reflect alipoma. IMPRESSION: * No evidence of acute intracranial abnormality, by MR. * 1.4 cm right parafalcine extra-axial lesions, presumed to reflect ameningioma, not significantly changed since 03/26/2023. Finalized by Christian Pop on 11/19/2024 12:27 PM [facility] IMG MRI ORDERABLES Final Result * Echo complete W/O contrast (11/19/2024 11:20 AM EDT) LVOT stroke volume 106.06 ml XCELERA LV Systolic Volume 50.20 mL XCELERA EF 61 % XCELERA FS 37 28 - 44 % XCELERA LV Diastolic Volume 128.00 mL XCELERA LVIDd 5.10 4.72 - 6.55 cm XCELERA LVIDs 3.20 2.78 - 4.21 cm XCELERA IVS 1.00 0.6 - 1.1 cm XCELERA PW 1.10 0.6 - 1.1 cm XCELERA LVOT diameter 2.20 cm XCELERA TDI 8.27 cm/s XCELERA MV TDI E' (medial) 5.22 cm/s XCELERA LA Volume Index 42.1 mL/m2 XCELERA E/A ratio 0.73 XCELERA E wave deceleration time 313.00 msec XCELERA MV Peak E David 73.70 cm/s XCELERA MV Peak A David 101.00 cm/s XCELERA LA size 3.90 cm XCELERA Aortic root 3.80 cm XCELERA LA volume 85.20 cm3 XCELERA RV diastolic dimension (basal) 42.0 mm XCELERA TAPSE 2.17 cm XCELERA AV peak david 158.00 cm/s XCELERA LVOT peak david 1.14 m/s XCELERA AV VTI 37.90 cm XCELERA LVOT peak VTI 27.90 cm XCELERA AV mean gradient 6.00 mmHg XCELERA AV peak gradient 9.99 mmHg XCELERA AV valve area 2.80 XCELERA Valve area - Index 1.4 XCELERA MV pressure 1/2 time 92.00 ms XCELERA MV valve area p 1/2 method 2.39 cm2 XCELERA PV mean gradient 2.00 mmHg XCELERA PV peak gradient 3.81 mmHg XCELERA LV ESV A2C 94.50 mL XCELERA LV ESV A4C 76.40 mL XCELERA LV RWT 2D 43.14 XCELERA Echo EF Estimated 61 % X[facility] AV Velocity Ratio 0.74 X[facility]ERA Left Ventricle Mass 200.24149 [id number] 4 g XCELERA Interventricular Septum Diastolic Thickness by 2D 10 cm XCELERA E/E' ratio 11.00 XCELERA MV E' average 6.7 cm/s XCELERA Est. RA pressure 3 mmHg XCELERA RA area 18.1 cm2 XCELERA ZLVIDS -0.52 XCELERA ZLVIDD -0.86 XCELERA Energy loss index 22.10 XCELERA Anatomical Region Laterality Modality Chest N/A Ultrasound Narrative 11/19/2024 1:39 PM EDT Left Ventricle: Left ventricle appears normal in size. Wall thickness is normal. Systolic function is normal with an ejection fraction of 60-65%. The quantitative EF by 2D Smith biplane is 61%. No obvious regional wall motion abnormalities. Diastolic function assessment is indeterminate. Left Atrium: Left atrium is moderately dilated. Right Atrium: Right atrium is mildly dilated. Right Ventricle: Right ventricular size is borderline dilated. Normal function. Aortic Valve: The aortic valve is trileaflet. There is moderate sclerosis. There is trace regurgitation. There is no evidence of aortic valve stenosis. Left Ventricle Left ventricle appears normal in size. Wall thickness is normal. Systolic function is normal with an ejection fraction of 60-65%. The quantitative EF by 2D Smith biplane is 61%. No obvious regional wall motion abnormalities. Diastolic function assessment is indeterminate. Lateral E' is 8.27 cm/s. Medial E' is 5.22 cm/s. Average E' is 6.7 cm/s. Right Ventricle Right ventricular size is borderline dilated. The right ventricular basal diameter is 42.0 mm. Normal tricuspid annular plane systolic excursion. Normal systolic excursion velocity by TDI (>9.5 cm/s). Left Atrium Left atrium volume index is moderately increased. The left atrial volume index is 42.1 mL/m2. Right Atrium Right atrium is mildly dilated. The right atrial area is 18.1 cm2. IVC/SVC The right atrial pressure is estimated at 3 mmHg. There is normal collapse with deep inspiration. Mitral Valve The leaflets are mildly thickened. There is trace regurgitation. There is no evidence of mitral valve stenosis. Tricuspid Valve Tricuspid valve appears to be normal. There is trace regurgitation. There is no evidence of tricuspid valve stenosis. Insufficient regurgitant jet to assess right ventricular systolic pressure. RVSP is based on RA pressure of 3 mmHg. Aortic Valve The aortic valve is trileaflet. There is moderate sclerosis. There is trace regurgitation. There is no evidence of aortic valve stenosis. Pulmonic Valve The pulmonic valve was not well visualized. Pulmonic valve structure is grossly normal. There is no regurgitation or stenosis. The peak gradient is 3.81 mmHg. The mean gradient is 2.00 mmHg. Ascending Aorta The aortic root is mildly dilated. Pericardium The pericardium has a fat pad. Study Details A complete echo was performed using complete 2D, color flow Doppler and spectral Doppler. Overall the study quality was adequate. The study was difficult due to patient's uncooperativeness. Wall Scoring Baseline Score Index: 1.00 The left ventricular wall motion is normal. us [facility] CV ECHO ORDERABLES Final Result * X-ray chest 1 view (11/19/2024 7:11 AM EDT) Anatomical Region Laterality Modality Body, Chest N/A Computed Radiogr aphy 11/19/2024 7:51 AM EDT Narrative 11/19/2024 7:51 AM EDT History: Mental status changes Procedure: Chest AP portable upright Comparison: 09/13/2016 Findings: The heart and lungs show no acute findings, and the mediastinum and simba are grossly negative . No pneumothorax. Impression: No acute pulmonary process. Finalized by Krish Royal MD on 11/19/2024 7:51 AM Procedure Note Krish Royal MD - 11/19/2024 History: Mental status changes Procedure: Chest AP portable upright Comparison: 09/13/2016 Findings: The heart and lungs show no acute findings, and the mediastinumand simba are grossly negative . No pneumothorax. Impression: No acute pulmonary process. Finalized by Krish Royal MD on 11/19/2024 7:51 AM Saúl Gaitan MD IMG DIAGNOSTIC IMAGING ORDER MARITZA Final Result * Troponin I, High Sensitivity 1 Hour (11/19/2024 7:11 AM EDT) TROPONIN I, HIGH SENSITIVITY 12 <21 ng/L 11/19/2024 7:41 AM EDT [facility] Blood Venous blood / Unknown Venipuncture / Unknown 11/19/2024 7:11 AM EDT 11/19/2024 7:14 AM EDT us Saúl Gaitan MD LAB BLOOD ORDERABLES Final R esult [facility] [address] [place] [address], * Lactate w/ Reflex (11/19/2024 7:11 AM EDT) LACTATE W/REFLEX 1.6 0.4 - 2.0 mmol/L 11/19/2024 7:31 AM EDT [facility] Blood Venous blood / Unknown Venipuncture / Unknown 11/19/2024 7:11 AM EDT 11/19/2024 7:14 AM EDT Narrative [facility] - 11/19/2024 7:31 AM EDT Result did not trigger repeat Lactate, re-order if needed. Saúl Gaitan MD LAB BLOOD ORDERABLES Final R esult Performing Organization Address City/[facility]/ZIP Co de Phone Number [address] [address], * Ammonia (11/19/2024 7:11 AM EDT) AMMONIA 17 11 - 35 umol/L 11/19/2024 7:32 AM EDT [facility] Blood Venous blood / Unknown Venipuncture / Unknown 11/19/2024 7:11 AM EDT 11/19/2024 7:14 AM EDT Saúl Gaitan MD LAB BLOOD ORDERABLES Final R esult Performing Organization Address City/[facility]/ZIP Co de Phone Number [address] [address], * Critical Care (11/19/2024 6:45 AM EDT) Saúl Soto MD - 11/19/2024 6:45 AM EDT Saúl Gaitan MD 11/21/2024 5:51 AM Critical Care Performed by: Saúl Gaitan MD Authorized by: Saúl Gaitan MD Critical care provider statement: Critical care time (minutes): 31 Critical care time was exclusive of: Separately billable procedures and treating other patients Critical care was necessary to treat or prevent imminent or life-threatening deterioration of the following conditions: [employer] failure or compromise Critical care was time spent personally by me on the following activities: Development of treatment plan with patient or surrogate, discussions with consultants, evaluation of patient's response to treatment, examination of patient, obtaining history from patient or surrogate, ordering and performing treatments and interventions, ordering and review of radiographic studies, ordering and review of laboratory studies, pulse oximetry, re-evaluation of patient's condition, review of old charts and blood draw for specimens I assumed direction of critical care for this patient from another provider in my specialty: no Care discussed with: admitting provider Saúl Gaitan MD PROCEDURE/MINOR SURGICAL ORD ERABLES Final Result * ED NIHSS And Thrombolytic MD Screening (11/19/2024 6:45 AM EDT) Saúl Soto MD - 11/19/2024 6:45 AM EDT Saúl Gaitan MD 11/21/2024 5:51 AM ED NIHSS And Thrombolytic Screening Performed by: Saúl Gaitan MD Authorized by: Saúl Gaitan MD Time NIHSS was performed: 11/19/2024 6:10 AM Interval: Baseline LOC: 2 - Arousable by repeated stimuli LOC Questions: 0 - Answers both correctly LOC Commands: 0 - Performs both tasks correctly Best Gaze: 0 - Normal horizontal movements Visual Flores: 0 - No visual field defect Facial Movements: 0 - Normal Motor Function Right Arm: 0 - No drift right arm holds for 10 seconds Motor Function Left Arm: 0 - No drift left arm holds for 10 seconds Motor Function Right Le - No drift right leg holds for full 5 seconds Motor Function Left Le - Left leg drifts before 5 seconds, does not touch bed Limb Ataxia: 0 - No limb ataxia Sensory: 0 - No sensory loss Language: 2 - Language severe aphasia Articulation: 1 - Articulation mild dysarthria Confirmed Time of Onset or Last Known Well: Date: 11/19/2024 Time: 03:30 EDT TOTAL NIHSS SCORE: 6 Do presenting disabilities interfere with lifestyle(i.e. work, hobbies, entertainment etc.?: Yes Stroke team initiated Reason Thrombolytic Indicated: Age greater than or equal to 18 years, Clinical Diagnosis Acute Ischemic Stroke with neurological deficit (mild or severe), Onset of symptoms, or time person was without neurological deficit less than 4.5 hours and Pretreatment head CT reviewed (negative for bleed) Decision for Thrombolytics: Thrombolytics will be given. Risks and benefits discussed with patient and/or family. us Saúl Gaitan MD PROCEDURE/MINOR SURGICAL ORD ERABLES Final Result * EKG 12 lead (11/19/2024 6:28 AM EDT) 11/19/2024 6:28 AM EDT Saúl Gaitan MD ECG ORDERABLES Final Result TRACEMASTERVUE * CT angiogram carotid (11/19/2024 6:25 AM EDT) Anatomical Region Laterality Modality Neuro, Neck, Vascular, Neuro Covera N/A Computed Tomography 11/19/2024 6:55 AM EDT Narrative 11/19/2024 7:06 AM EDT History: Acute neurological disorder. Acute stroke/TIA Exam/Technique: Bolus arterial phase IV contrast. 3-D and multiplanar reconstructions are provided for CTA of the neck. Volume rendered 3 -D Maximum intensity projection reconstructions constructed under concurrent physician supervision on an independent workstation and reviewed for purposes of evaluation of the cervical arterial vasculature. Carotid artery narrowing is assessed using the [place] Symptomatic Carotid Endarterectomy Trial (NASCET) method. Comparison: None Findings: Conventional anatomy is demonstrated for the origins of the great vessels from the arch. There is mild calcific pleural plaquing in the aortic arch and at the origins of the great vessels. No stenoses or other significant abnormalities of the proximal great vessels are displayed. Prominent calcific plaquing is displayed at the carotid bifurcations. Maximal narrowing in the proximal right internal carotid decreases diameter by 70%. On the left narrowing in the proximal internal carotid maximally decreases diameter by just approximately 40%. Vertebral arteries are intact throughout the neck bilaterally.. There is calcific plaquing at the origin of the right vertebral that appears to narrow its lumen by approximately 60% of diameter maximally. No focal stenoses in the left vertebral. No evidence of dissection of any of the cervical vessels and no other arterial abnormalities are depicted. 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 Moderate stenosis of the left internal carotid and right vertebral arteries, as detailed above. All CT scans at this facility use dose modulation, iterative reconstruction, and/or weight based dosing when appropriate to reduce radiation dose to as low as reasonably achievable. Finalized by Chip Sprague MD on 11/19/2024 7:06 AM Procedure Note Chip Sprague MD - 11/19/2024 History: Acute neurological disorder. Acute stroke/TIA Exam/Technique: Bolus arterial phase IV contrast. 3-D and multiplanarreconstructions are provided for CTA of the neck. Volume rendered 3 -DMaximum intensity projection reconstructions constructed under concurrentphysician supervision on an independent workstation and reviewed forpurposes of evaluation of the cervical arterial vasculature. Carotid arterynarrowing is assessed using the [place] Symptomatic CarotidEndarterectomy Trial (NASCET) method. Comparison: None Findings: Conventional anatomy is demonstrated for the origins of thegreat vessels from the arch. There is mild calcific pleural plaquing inthe aortic arch and at the origins of the great vessels. No stenoses orother significant abnormalities of the proximal great vessels aredisplayed. Prominent calcific plaquing is displayed at the carotid bifurcations.Maximal narrowing in the proximal right internal carotid decreasesdiameter by 70%. On the left narrowing in the proximal internal carotid maximally decreasesdiameter by just approximately 40%. Vertebral arteries are intact throughout the neck bilaterally.. There iscalcific plaquing at the origin of the right vertebral that appears tonarrow its lumen by approximately 60% of diameter maximally. No focalstenoses in the left vertebral. No evidence of dissection of any of thecervical vessels and no other arterial abnormalities are depicted. 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 Moderate stenosis of the left internal carotid and right vertebralarteries, as detailed above. All CT scans at this facility use dose modulation, iterativereconstruction, and/or weight based dosing when appropriate to reduceradiation dose to as low as reasonably achievable. Finalized by Chip Sprague MD on 11/19/2024 7:06 AM us Saúl Gaitan MD IMG CT ORDERABLES Final Resu lt * CT angiogram head (11/19/2024 6:20 AM EDT) Anatomical Region Laterality Modality Head, Neuro, Vascular, Head and Neck, Neuro [facility] ra N/A Computed Tomography 11/19/2024 7:37 AM EDT Narrative 11/19/2024 7:41 AM EDT CTA of the intracranial arteries with contrast and 3-D reformats INDICATION: Transient alteration of consciousness, left-sided weakness, neurological deficit. PROCEDURE: Automatic radiation exposure lowering techniques were utilized. All CT scans at this facility use dose modulation, iterative reconstruction, and/or weight based dosing when appropriate to reduce radiation dose to as low as reasonably achievable.. Following the intravenous injection of 100 mL of Omnipaque 350, a CTA of the intracranial arteries and 3-D reformats obtained including 3 -D Maximum intensity projection reconstructions constructed under concurrent physician supervision on a independent workstation . 3 D images obtained to improve visualization of vascular detail. FINDINGS: No comparisons available. Suboptimal contrast bolus. Atherosclerotic disease and calcified plaques in the intracranial carotid arteries. Enhancing lesion along the falx measuring 1.4 x 1.1 cm, likely meningioma, this was present on prior MRI from 03/26/2023 (MRI report not available). Patent anterior, middle, and posterior cerebral arteries and patent basal artery without intracranial aneurysm or large vessel occlusion seen. IMPRESSION: 1. No intracranial aneurysm or large vessel occlusion seen. Finalized by Whit Lewis MD on 11/19/2024 7:41 AM Procedure Note Whit Lewis MD - 11/19/2024 CTA of the intracranial arteries with contrast and 3-D reformats INDICATION: Transient alteration of consciousness, left-sided weakness,neurological deficit. PROCEDURE: Automatic radiation exposure lowering techniques were utilized.All CT scans at this facility use dose modulation, iterativereconstruction, and/or weight based dosing when appropriate to reduceradiation dose to as low as reasonably achievable.. Following theintravenous injection of 100 mL of Omnipaque 350, a CTA of the intracranial arteries and 3-D reformatsobtained including 3 -D Maximum intensity projection reconstructionsconstructed under concurrent physician supervision on a independentworkstation . 3 D images obtained to improve visualization of vasculardetail. FINDINGS: No comparisons available. Suboptimal contrast bolus.Atherosclerotic disease and calcified plaques in the intracranial carotidarteries. Enhancing lesion along the falx measuring 1.4 x 1.1 cm, likelymeningioma, this was present on prior MRI from 03/26/2023 (MRI report notavailable). Patent anterior, middle, and posterior cerebral arteries and patent basalartery without intracranial aneurysm or large vessel occlusion seen. IMPRESSION: 1. No intracranial aneurysm or large vessel occlusion seen. Finalized by Whit Lewis MD on 11/19/2024 7:41 AM us Saúl Gaitan MD IMG CT ORDERABLES Final Resu lt * Troponin I, High Sensitivity 0 Hour (11/19/2024 6:12 AM EDT) TROPONIN I, HIGH SENSITIVITY 7 <21 ng/L 11/19/2024 6:45 AM EDT [facility] Blood Venous blood / Unknown Venipuncture / Unknown 11/19/2024 6:12 AM EDT 11/19/2024 6:15 AM EDT us Saúl Gaitan MD LAB BLOOD ORDERABLES Final R esult [facility] [address] [place] [address], * (ABNORMAL) Thyroid profile includes TSH FT4 (11/19/2024 6:12 AM EDT) FREE T4 0.95 0.61 - 1.60 ng/dL 11/19/2024 7:37 AM EDT [facility] TSH 8.17(H) 0.49 - 4.67 uIU/mL 11/19/2024 7:37 AM EDT [facility] Blood Venous blood / Unknown Venipuncture / Unknown 11/19/2024 6:12 AM EDT 11/19/2024 6:15 AM EDT us Saúl Gaitan MD LAB BLOOD ORDERABLES Final R esult [place] [id number] [place] [address], [place] * (ABNORMAL) Iron and TIBC (11/19/2024 6:12 AM EDT) IRON 54 50 - 212 ug/dL 11/19/2024 10:00 PM EDT [facility] TRANSFERRIN 159(L) 168 - 336 mg/dL 11/19/2024 10:00 PM EDT [facility] IRON BINDING 223(L) 250 - 425 ug/dL 11/19/2024 10:00 PM EDT [facility] IRON SATURATION 24 20 - 50 % SATURATION 11/19/2024 10:00 PM EDT [facility] Blood Venous blood / Unknown Venipuncture / Unknown 11/19/2024 6:12 AM EDT 11/19/2024 6:15 AM EDT Tania Arroyo APRN-PATRICE LAB BLOOD ORDERABLES Final Result [facility] [address] [place] [address], [place] [phone] * Protime & INR (11/19/2024 6:12 AM EDT) PROTIME 10.0 9.8 - 13.2 sec 11/19/2024 6:44 AM EDT [facility] INR 0.9 0.9 - 1.2 11/19/2024 6:44 AM EDT [facility] Blood Venous blood / Unknown Venipuncture / Unknown 11/19/2024 6:12 AM EDT 11/19/2024 6:15 AM EDT us Saúl Gaitan MD LAB BLOOD ORDERABLES Final R esult [address] [place] [address], [place] * Lipase (11/19/2024 6:12 AM EDT) LIPASE 21 17 - 40 U/L 11/19/2024 7:15 AM EDT [facility] Blood Venous blood / Unknown Venipuncture / Unknown 11/19/2024 6:12 AM EDT 11/19/2024 6:15 AM EDT us Saúl Gaitan MD LAB BLOOD ORDERABLES Final R esult Performing Organization Address City/[facility]/ZIP Co de Phone Number [address] [place] [address], [place] * Ethanol (11/19/2024 6:12 AM EDT) ETHANOL <0.010 <=0.080 g/dL 11/19/2024 7:19 AM EDT [facility] Comment: This report is intended for use in clinical monitoring or management of patients. Blood Venous blood / Unknown Venipuncture / Unknown 11/19/2024 6:12 AM EDT 11/19/2024 6:15 AM EDT us Saúl Gaitan MD LAB BLOOD ORDERABLES Final R [facility] Performing Organization Address City/[facility] Co de Phone Number [address] [place] [address], [place] * (ABNORMAL) Acetaminophen level (11/19/2024 6:12 AM EDT) ACETAMINOPHEN 3.2(L) 10.0 - 30.0 ug/mL 11/19/2024 7:19 AM EDT [facility] Blood Venous blood / Unknown Venipuncture / Unknown 11/19/2024 6:12 AM EDT 11/19/2024 6:15 AM EDT Narrative [facility] - 11/19/2024 7:19 AM EDT Reference ranges are for therapeutic limits. us Saúl Gaitan MD LAB BLOOD ORDERABLES Final R esult [address] [place] [address], [place] * Salicylate level (11/19/2024 6:12 AM EDT) SALICYLATE <4.0 2.0 - 25.0 mg/dL 11/19/2024 7:19 AM EDT [facility] Blood Venous blood / Unknown Venipuncture / Unknown 11/19/2024 6:12 AM EDT 11/19/2024 6:15 AM EDT Narrative [facility] - 11/19/2024 7:19 AM EDT Reference ranges are for therapeutic limits. us Saúl Gaitan MD LAB BLOOD ORDERABLES Final R [facility] Performing Organization Address City/[facility]/ZIP Co de Phone Number [address] [place] [address], [place] * Liver panel (11/19/2024 6:12 AM EDT) TOTAL PROTEIN 6.9 6.0 - 8.0 g/dL 11/19/2024 6:41 AM EDT [facility] ALBUMIN 3.6 3.2 - 5.3 g/dL 11/19/2024 6:41 AM EDT [facility] BILIRUBIN,TOTAL 0.5 0.3 - 1.2 mg/dL 11/19/2024 6:41 AM EDT [facility] ALKALINE PHOSPHATASE 90 39 - 130 U/L 11/19/2024 6:41 AM EDT [facility] AST 21 <=41 U/L 11/19/2024 6:41 AM EDT [facility] ALT 17 <=40 U/L 11/19/2024 6:41 AM EDT [facility] BILIRUBIN,DIRECT 0.1 <=0.4 mg/dL 11/19/2024 6:41 AM EDT [facility] Blood Venous blood / Unknown Venipuncture / Unknown 11/19/2024 6:12 AM EDT 11/19/2024 6:15 AM EDT Saúl Gaitan MD LAB BLOOD ORDERABLES Final R esult [facility] [address] [place] [address], * CT brain without contrast stroke alert (11/19/2024 6:11 AM EDT) Anatomical Region Laterality Modality Neuro, Head, Head and Neck, Neuro Covera N/A Computed Tomography 11/19/2024 6:13 AM EDT Narrative 11/19/2024 6:18 AM EDT History: Patient found unresponsive. NONCONTRAST HEAD CT Comparison: None Findings: There is no evidence of recent hemorrhage or other acute intracranial abnormalities. No other focal intracranial findings of any nature are depicted. Ventricles and CSF spaces are bilaterally symmetric and appear within normal limits for age group. Ruiz-white matter differentiation is normal throughout. Partial opacification of the right maxillary antrum with mild mucosal thickening, and apparent retention cyst or polyp 2 cm No other abnormalities are displayed on bone windows. IMPRESSION: No acute intracranial abnormalities demonstrated on noncontrast CT. All CT scans at this facility use dose modulation, iterative reconstruction, and/or weight based dosing when appropriate to reduce radiation dose to as low as reasonably achievable. Finalized by Chip Sprague MD on 11/19/2024 6:18 AM Procedure Note Chip Sprague MD - 11/19/2024 History: Patient found unresponsive. NONCONTRAST HEAD CT Comparison: None Findings: There is no evidence of recent hemorrhage or other acuteintracranial abnormalities. No other focal intracranial findings of any nature are depicted.Ventricles and CSF spaces are bilaterally symmetric and appear withinnormal limits for age group. Ruiz-white matter differentiation is normalthroughout. Partial opacification of the right maxillary antrum with mild mucosalthickening, and apparent retention cyst or polyp 2 cm No otherabnormalities are displayed on bone windows. IMPRESSION: No acute intracranial abnormalities demonstrated onnoncontrast CT. All CT scans at this facility use dose modulation, iterativereconstruction, and/or weight based dosing when appropriate to reduceradiation dose to as low as reasonably achievable. 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 Source: [facility]. 08/29/[address] [place] [address] [employer] Advance Directives * Full Code (Latest Code Status on File) Date Activated Date Inactivated Comments 11/19/2024 4:30 PM 11/23/2024 8:12 PM * Full Code Date Activated Date Inactivated Comments 11/19/2024 12:57 PM 11/19/2024 3:06 PM Care Teams Distribution Clerk Relationship Specialty Start Date End Date Tejas Bryant MD PCP - General Family Medicine 07/12/19
--- OUTSIDE RECORDS SUMMARY | 2024-12-30 15:19 | XMS_ITS | Encounter Summary ---
Author Organization [facility] Address [address] [place] [address] Care Team Providers Care Corporate Compliance Director Name Role Phone Tejas Bryant MD Primary Care Provider Tejas Bryant MD Unavailable Tejas Bryant MD Primary Care Provider [phone] Encounter Details Date Type Department Care Team (Late st Contact Info) Description 07/11/2023 External Result Encounter [facility] External Department Unsolicited Rohan Chapman DPM [address] [address] Social History Tobacco Use Types Packs/Day Years [...] EDT Office Visit [facility] [address] [facility] [address] [place] [address] Rohan Chapman DPM 3[address] [facility] 5 [place] [address] 02/01/2025 1:00 PM EDT Office Visit [facility] [address] [place] [address] Tejas Bryant MD [address] [place] [phone] documented as of this encounter Procedures Procedure Name Priority Date/Time Associated Diagnosis Comments XR FOOT 1-2 VIEWS LEFT 07/11/2023 8:30 PM EST documented in this encounter Results * XR foot 1 or 2 views left (07/11/2023 8:30 PM EST) Anatomical Region Laterality Modality Lower Extremities, Foot Left Radiogra phic Imaging 07/11/2023 8:30 PM EST Impressions 07/11/2023 8:36 PM EST INTERVAL AMPUTATION OF THE FIRST TOE AND REVISION AT THE FIFTH . Impression dictated by: Pallavi Hernandez M.D.07/11/2023 8:34 PM Dictation Location: [facility] Transcribed By: [facility] 07/11/232033 Dictated By: Pallavi Hernandez MD 07/11/232029 Signed By: <Electronically signed by MD Pallavi Hernandez in OV> 07/11/232033 Narrative 07/11/2023 8:36 PM EST [facility] [place] [address] XRay Report Signed Patient: Sudeep Diego JR MR#: [id number] : 1950 Acct:[id number] Age/Sex: 72 / M ADM Date: 07/10/23 Loc: Room: [address] [place] [address] Type: ADM IN Attending Dr: Brennan Cerrato MD Copies to: MD Rohan Cruz DPM Ordering Provider: Rohan Chapman DPM Date of Service: 07/11/23 XR/XR foot LT 2V: post op amputation left first ray/partial 5th met LEFT FOOT - 2 views COMPARISON: 07/10/2023 CLINICAL DATA: Interval revision amputation at the fifth toe and new amputation at the first AP and lateral views were obtained. There is revision with additional amputation of a portion of the remaining shaft of the fifth metatarsal. There is new amputation of the first toe at the level of the first metatarsal neck. There is subcutaneous air and radiopaque density at the amputation site which might related to dressing or antibiotic therapy. The remaining bony structures are intact. No acute fracture or dislocation is identified. There are enthesophytes at the base of the fifth metatarsal. There are also posterior and plantar calcaneal spurs. There is mild dorsal soft tissue swelling. There is atherosclerotic disease. XR/XR foot LT 2V Procedure Note Radiology, Radiologist, - 07/12/2023 [facility] [place] [address] [place] [address] XRay Report Signed Patient: Sudeep Diego [facility]#: [id number] : 2Acct:[id number] Age/Sex: 72 / MADM Date: 07/10/23 Loc: Room: 4H4122-9Tieu: ADM IN Attending Dr: Brennan Cerrato MD Copies to: MD Rohan Cruz DPM Ordering Provider: Rohan Chapman DPM Date of Service: 07/11/23 XR/XR foot LT 2V: post op amputation left firstray/partial 5th met LEFT FOOT - 2 views COMPARISON: 07/10/2023 CLINICAL DATA: Interval revision amputation at the fifth toe and newamputation at the first AP and lateral views were obtained. There is revision with additionalamputation of a portion of the remaining shaft of the fifth metatarsal. There is new amputation ofthe first toe at the level of the first metatarsal neck. There is subcutaneous air and radiopaquedensity at the amputation site which might related to dressing or antibiotic therapy. The remainingbony structures are intact. No acute fracture or dislocation is identified. There areenthesophytes at the base of the fifth metatarsal. There are also posterior and plantar calcaneal spurs.There is mild dorsal soft tissue swelling. There is atherosclerotic disease. XR/XR foot LT 2V IMPRESSION: INTERVAL AMPUTATION OF THE FIRST TOE AND REVISION AT THE FIFTH . Impression dictated by: Pallavi Hernandez M.D.07/11/2023 8:34 PM Dictation Location: [place] [address] Transcribed By: [facility] 07/11/232033 Dictated By: Pallavi Hernandez MD 07/11/232029 Signed By: <Electronically signed by MD Pallavi Hernandez in OV> 07/11/232033 Rohan Chapman DPZeb IMG XR PROCEDURES Edited Re sult - Final documented in this encounter Visit Diagnoses Not on filedocumented in this encounter Care Teams Corporate Compliance Director Relationship Specialty Start Date End Date Tejas Bryant MD PCP - General Cardiology 11/07/22 08/13/23 Tejas Bryant MD [address] [place] [phone] PCP - Devoted 05/26/23 05/25/24 Tejas Bryant MD [address] [place] [phone] PCP - General Family Medicine 08/14/23 documented as of this encounter
--- OUTSIDE RECORDS SUMMARY | 2024-12-30 15:19 | XMS_ITS | Encounter Summary ---
Author Organization [facility] Address [address] [place] [address] Care Team Providers Care Certified Pharmacy Tech Name Role Phone Tejas Bryant MD Primary Care Provider [phone] Encounter Details Date Type Department Care Team (Late st Contact Info) Description 09/14/2023 Lab Requisition [facility] [address] [place] [phone] Rohan Shin MD [address] [place], [place] [phone] Respiratory failure, unspecified, unspecified whether with hypoxia or hypercapnia (CMS/HCC) Social History Tobacco Use Types Packs/Day Years Used Date Smoking Tobacco: Never Assessed [place] Safety & Environment Answer Date Rec orded [...] Diagnosis Comments CBC WITH AUTO DIFFERENTIAL Routine 09/14/2023 5:00 AM EDT CBC AND DIFFERENTIAL Routine 09/14/2023 5:00 AM EDT PHOSPHORUS Routine 09/14/2023 5:00 AM EDT MAGNESIUM Routine 09/14/2023 5:00 AM EDT BASIC METABOLIC PANEL Routine 09/14/2023 5:00 AM EDT documented in this encounter Results * (ABNORMAL) CBC auto differential (09/14/2023 5:00 AM EDT) Auto WBC 11.18(H) 4.00 - 10.60 10*3/uL 09/14/2023 7:41 AM EDT [facility] ([facility]) RBC 3.00(L) 4.20 - 5.70 10*6/uL 09/14/2023 7:41 AM EDT [facility] ([facility]) Hemoglobin 8.8(L) 13.0 - 17.0 g/dL 09/14/2023 7:41 AM EDT [facility] ([facility]) Hematocrit 27.0(L) 39.0 - 55.0 % 09/14/2023 7:41 AM EDT [facility] ([facility]) MCV 90.0 82.0 - 98.0 fL 09/14/2023 7:41 AM EDT [facility] ([facility]) MCH 29.3 27.0 - 33.0 pg 09/14/2023 7:41 AM EDT [facility] ([facility]) MCHC 32.6 32.0 - 35.0 g/dL 09/14/2023 7:41 AM EDT [facility] ([facility]) RDW 17.1(H) 11.5 - 15.0 % 09/14/2023 7:41 AM EDT [facility] ([facility]) Neutrophils % 48.6 40.0 - 72.0 % 09/14/2023 7:41 AM EDT [facility] ([facility]) Lymphocytes % 31.8 20.0 - 45.0 % 09/14/2023 7:41 AM EDT [facility] ([facility]) Monocytes % 12.5(H) 5.0 - 12.0 % 09/14/2023 7:41 AM EDT [facility] ([facility]) Eosinophils % 4.7 0.0 - 6.0 % 09/14/2023 7:41 AM EDT [facility] ([facility]) Basophils % 2.0(H) 0.0 - 1.0 % 09/14/2023 7:41 AM EDT [facility] ([facility]) Neutrophils Absolute 5.43 1.60 - 7.60 10*3/uL 09/14/2023 7:41 AM EDT [facility] ([facility]) Lymphocytes Absolute 3.56 1.20 - 4.00 10*3/uL 09/14/2023 7:41 AM EDT [facility] ([facility]) Monocytes Absolute 1.40(H) 0.10 - 1.00 10*3/uL 09/14/2023 7:41 AM EDT [facility] ([facility]) Eosinophils Absolute 0.53(H) 0.00 - 0.50 10*3/uL 09/14/2023 7:41 AM EDT [facility] ([facility]) Basophils Absolute 0.22(H) 0.00 - 0.20 10*3/uL 09/14/2023 7:41 AM EDT [facility] ([facility]) Platelets 633(H) 150 - 400 10*3/uL 09/14/2023 7:41 AM EDT [facility] ([facility]) nRBC % 0.0 0 % 09/14/2023 7:41 AM EDT [facility] ([facility]) Immature Granulocytes % 0.4 0.0 - 1.0 % 09/14/2023 7:41 AM EDT [facility] ([facility]) Immature Granulocytes Absolute 0.04 0.00 - 0.20 10*3/uL 09/14/2023 7:41 AM EDT [facility] ([facility]) Blood Venous blood specimen / Unknown Venipuncture / Unknown 09/14/2023 5:00 AM EDT 09/14/2023 7:32 AM EDT us Rohan Shin MD LAB BLOOD ORDERABLES Final Result [facility] ([facility]) [address] [place] [address] * Magnesium (09/14/2023 5:00 AM EDT) Magnesium 2.2 1.9 - 2.7 mg/dL 09/14/2023 8:42 AM EDT [facility] ([facility]) Blood Venous blood specimen / Unknown Venipuncture / Unknown 09/14/2023 5:00 AM EDT 09/14/2023 7:32 AM EDT Rohan Shin MD LAB BLOOD ORDERABLES Final Result [facility]) [address] [place], [place] [id number] * (ABNORMAL) Phosphorus (09/14/2023 5:00 AM EDT) Phosphorus 6.7(H) 2.5 - 5.0 mg/dL 09/14/2023 8:42 AM EDT [facility] ([facility]) Blood Venous blood specimen / Unknown Venipuncture / Unknown 09/14/2023 5:00 AM EDT 09/14/2023 7:32 AM EDT us Rohan Shin MD LAB BLOOD ORDERABLES Final Result [facility]) [address] [place] [address] * (ABNORMAL) Basic metabolic panel (09/14/2023 5:00 AM EDT) Sodium 135(L) 136 - 145 mmol/L 09/14/2023 8:42 AM EDT [facility] ([facility]) Potassium 4.8 3.5 - 5.1 mmol/L 09/14/2023 8:42 AM EDT [facility] ([facility]) Chloride 103 98 - 107 mmol/L 09/14/2023 8:42 AM EDT [facility] ([facility]) CO2 21 21 - 31 mmol/L 09/14/2023 8:42 AM EDT [facility] ([facility]) BUN 67(H) 7 - 25 mg/dL 09/14/2023 8:42 AM EDT [facility] ([facility]) Creatinine 1.98(H) 0.70 - 1.30 mg/dL 09/14/2023 8:42 AM EDT [facility] ([facility]) Glucose 74 70 - 100 mg/dL 09/14/2023 8:42 AM EDT [facility] ([facility]) Calcium 8.4(L) 8.6 - 10.3 mg/dL 09/14/2023 8:42 AM EDT [facility] ([facility]) Anion Gap 16 7 - 20 mmol/L 09/14/2023 8:42 AM EDT [facility] ([facility]) eGFR 35.4(L) >60.0 mL/min/1. 73m*2 09/14/2023 8:42 AM EDT [facility] ([facility]) Comment:[facility] s estimated glomerular [...] any one group of individuals. BUN/Creatinine Ratio 33.8 08/25 8:42 AM EDT [facility] ([facility]) Blood Venous blood specimen / Unknown Venipuncture / Unknown 09/14/2023 5:00 AM EDT 09/14/2023 7:32 AM EDT us Rohan Shin MD LAB BLOOD ORDERABLES Final Result [facility] ([facility]) [address] [place] [address] documented in this encounter Visit Diagnoses Diagnosis Respiratory failure, unspecified, unspecified whether with hypoxia or hypercapnia (CMS/HCC) documented in this encounter Additional Health Concerns Infection Onset Date Last Indicated Resolved Time CRE 08/29/2023 08/29/2023 documented as of this encounter Care Teams Certified Pharmacy Tech Relationship Specialty Start Date End Date Tejas Bryant MD [address] [place] [address] PCP - General Family Medicine 12/29/23 documented as of this encounter
--- OUTSIDE RECORDS SUMMARY | 2024-12-30 15:19 | XMS_ITS | Encounter Summary ---
Author Organization [facility] Address [address] [place] [address] Care Team Providers Care Accountant Machine Processing Name Role Phone Tejas Bryant MD Primary Care Provider [phone] Reason for Visit * Reason Onset Date Comments Med Refill 12/16/2024 Encounter Details Date Type Department Care Team (Late st Contact Info) Description 12/16/2024 [facility] [address] [place] [address] Tejas Bryant MD [address] [place] [phone] Diabetic polyneuropathy associated with type 2 diabetes mellitus (HCC); MDD (major depressive disorder), recurrent episode, moderate (HCC); Essential hypertension, benign Social History Tobacco Use Types Packs/Day Years [...] CI PODIATRY [address] [facility] [address] [place] [phone] Rohan Chapman DPM [address] [facility] 5 [place] [address] 02/01/2025 1:00 PM EDT Office Visit [facility] [address] [place] [phone] Tejas Bryant MD [address] [place] [phone] documented as of this encounter Goals Goal Patient Goal Type Associated Problems Recent Progress Patient-Stated? Author Help patient manage antidepressant medication Care Plan Patient on antidepressant monitoring plan Munira Keyes documented as of this encounter Visit Diagnoses Diagnosis Diabetic polyneuropathy associated with type 2 diabetes mellitus (HCC) MDD (major depressive disorder), recurrent episode, moderate (HCC) Essential hypertension, benign Essential hypertension, benign documented in this encounter Additional Health Concerns Active Problems Noted Date Diagnosed Date Patient on antidepressant monitoring plan 2024 Assessment Noted Time PHQ-9 Depression Total Score: 3 01/13/20 1:00 PM EDT documented as of this encounter Care Teams Accountant Machine Processing Relationship Specialty Start Date End Date Tejas Bryant MD [address] [place] [phone] PCP - General Family Medicine 08/14/23 documented as of this encounter
--- OUTSIDE RECORDS SUMMARY | 2024-12-30 15:19 | XMS_ITS | Clinical Summary ---
Author Organization [facility] Healthcare Address [address] [place] [address] Care Team Providers Care Master Mechanic Name Role Phone Tejas Bryant MD Primary Care Provider [phone] Allergies Active Allergy Reactions Criticality Noted Date Comments Cefepime 06/26/2023 Lisinopril Rash Low 11/07/2022 Metformin 01/06/2017 Other Reaction(s): Other (See Comments) Kidney pain Medications atorvastatin (Lipitor) 40 MG tablet Take 40 mg by mouth at bedtime. 023 Active melatonin 3 MG tablet Take 6 mg by mouth at bedtime 024 Active famotidine (Pepcid) 40 MG tablet 40 mg in the morning and 40 mg before bedtime. Active hydrOXYzine HCl (Atarax) 25 MG tabletIndication s:BRYCE (generalized anxiety disorder) Take 1 tablet (25 mg) by mouth 4 (four) times a day as needed for anxiety 60 tablet 2 024 Active Lancets 28G miscIndications: Type 2 diabetes mellitus with hyperglycemia, with long-term current use of insulin (HCC) Test daily 100 each 3 024 Active cholecalciferol (Vitamin D-3) 50 MCG (1999) tablet 1 (one) time each day at the same time Active insulin glargine (Basaglar KwikPen) 100 UNIT/ML pen Inject under the skin at bedtime Active insulin lispro protamine-insuli n lispro (HumaLOG MIX 50/50 KWIKPEN) (50-50) 100 UNIT/ML injection Inject under the skin 2 (two) times a day with meals Active FeroSul 325 (65 Fe) MG tablet Take 1 tablet by mouth in the morning and 1 tablet before bedtime. Active hydrALAZINE (Apresoline) 25 MG tablet Take 25 mg by mouth in the morning and 25 mg in the evening and 25 mg before bedtime. Active traZODone (Desyrel) 100 MG tabletIndication s:Primary insomnia Take 1 tablet (100 mg) by mouth at bedtime 90 tablet 3 Active sevelamer carbonate (Renvela) 800 MG tabletIndication s:Hyperphosphate vicky,CKD stage 3a, GFR 45-59 ml/min ([facility]) TAKE 2 TABLETS BY MOUTH THREE TIMES DAILY (IN THE MORNING, at noon, and IN THE EVENING) WITH MEALS 180 tablet 5 Active bumetanide (Bumex) 2 MG tabletIndication s:Edema of both legs TAKE 1 TABLET BY MOUTH DAILY 30 tablet 3 Active Drug [place] Unifine Pentips 31G X 6 MM miscIndications: Type 2 diabetes mellitus with hyperglycemia ([facility]) USE DISPOSABLE PEN TIP TWICE DAILY DIRECTED 100 each Active amLODIPine (Norvasc) 10 MG tabletIndication s:Essential hypertension, benign TAKE 1 TABLET BY MOUTH DAILY 30 tablet 11 Active clopidogrel (Plavix) 75 MG tabletIndication s:Chronic heart failure with preserved ejection fraction (HFpEF) ([facility]) Take 1 tablet (75 mg) by mouth Daily 90 tablet 3 025 2025 Active traMADol (Ultram) 50 MG tabletIndication s:Diabetic polyneuropathy associated with type 2 diabetes mellitus ([facility]) Take 1 tablet (50 mg) by mouth 4 (four) times a day as needed for severe pain or moderate pain 120 tablet 1 025 2024 Active aspirin 81 MG EC tablet Take 81 mg by mouth Daily Active gabapentin (Neurontin) 300 MG capsuleIndicatio ns:Diabetic polyneuropathy associated with type 2 diabetes mellitus (HCC) Take 1 capsule (300 mg) by mouth in the morning and 1 capsule (300 mg) in the evening and 1 capsule (300 mg) before bedtime. 90 capsule 2 025 2024 Active sertraline (Zoloft) 100 MG tabletIndication s:MDD (major depressive disorder), recurrent episode, moderate (HCC) Take 1 tablet (100 mg) by mouth Daily 90 tablet 3 025 Active metoprolol succinate XL (Toprol-XL) 50 MG 24 hr tabletIndication s:Essential hypertension, benign Take 1 tablet (50 mg) by mouth Daily 90 tablet 3 025 Active Lantus SoloStar 100 UNIT/ML pen INJECT 20 UNITS SUBCUTANEOUSLY at BREAKFAST and AT BEDTIME 024 2024 Discontinued traMADol (Ultram) 50 MG tabletIndication s:Diabetic polyneuropathy associated with type 2 diabetes mellitus (HCC) Take 1 tablet (50 mg) by mouth 4 (four) times a day as needed for moderate pain or severe pain 120 tablet 025 2024 Discontinued metoprolol succinate XL (Toprol-XL) 50 MG 24 hr tabletIndication s:Essential hypertension, benign TAKE 1 TABLET BY MOUTH DAILY 90 tablet 3 025 2024 Discontinued(R eorder) sertraline (Zoloft) 100 MG tabletIndication s:MDD (major depressive disorder), recurrent episode, moderate (HCC) TAKE 1 TABLET BY MOUTH DAILY 90 tablet 3 025 2024 Discontinued(R eorder) gabapentin (Neurontin) 300 MG capsuleIndicatio ns:Diabetic polyneuropathy associated with type 2 diabetes mellitus (HCC) TAKE 1 CAPSULE BY MOUTH THREE TIMES DAILY (IN THE MORNING, IN THE EVENING, and BEFORE bedtime) 90 capsule 2 025 2024 Discontinued(R eorder) Active Problems Problem Noted Date Diagnosed Date Transient ischemic attack 11/20/2024 Assessment & Plan (12/14/2024 4:29 PM EDT): Continue aspirin and plavix. Follow with neurology. Stenosis of both internal carotid arteries 11/19 Assessment & Plan (12/14/2024 4:30 PM EDT): Will need follow up and follow with vascular. Myoclonus 01/27/2024 Assessment & Plan (01/27/2024 4:31 PM EDT): Developed symptoms and possible side effect from seroquel and stop. Monitor and if persists may need to see neurology. CKD stage 3b, GFR 30-44 ml/min 01/13/2024 Assessment & Plan (10/14/2024 2:59 PM EDT): Renal function improved and follow with specialists Assessment & Plan (04/15/2024 4:31 PM EST): Renal function stable and follow with specialists Medicare annual wellness visit, subsequent 01/12 Assessment & Plan (01/13/2024 1:49 PM EDT): Reviewed recent labs. Discussed proper diet and regular aerobic exercise. Need aerobic exercise 5-6 days a week for 30 minutes at a time. Smaller portions and limit total calories. Colonoscopy every 10 years. Tetanus every 10 years. Advised not to smoke. Discussed daily Aspirin therapy. Primary insomnia 12/02/2023 Assessment & Plan (10/14/2024 2:59 PM EDT): Sleeping well with trazodone and continue. Assessment & Plan (04/15/2024 4:32 PM EST): Sleeping well with trazodone and continue. Assessment & Plan (01/27/2024 4:31 PM EDT): Sleeping well with trazodone and continue. Assessment & Plan (12/02/2023 3:04 PM EDT): Not sleeping as well and increase seroquel. BRYCE (generalized anxiety disorder) 12/02/2023 Assessment & Plan (10/14/2024 2:59 PM EDT): Symptoms controlled with medication and continue. Use hydroxyzine PRN. Assessment & Plan (04/15/2024 4:32 PM EST): Symptoms controlled with medication and continue. Use hydroxyzine PRN. Assessment & Plan (12/02/2023 3:03 PM EDT): Increased symptoms and increase seroquel and zoloft. Use hydroxyzine PRN. Hyperphosphatemia 12/02/2023 MDD (major depressive disord er), recurrent episode, moderate 12/02/2023 Assessment & Plan (10/14/2024 2:59 PM EDT): Symptoms controlled with medication and continue. Assessment & Plan (04/15/2024 4:32 PM EST): Symptoms controlled with medication and continue. Assessment & Plan (12/02/2023 3:03 PM EDT): Increased symptoms and increase seroquel and zoloft. Chronic heart failure with p reserved ejection fraction (HFpEF) 11/06/2023 Assessment & Plan (10/14/2024 2:58 PM EDT): Edema controlled and follow with specialists. Assessment & Plan (04/15/2024 4:31 PM EST): Edema controlled and follow with specialists. Assessment & Plan (12/02/2023 3:03 PM EDT): Edema controlled and follow with specialists. Assessment & Plan (11/06/2023 5:06 PM EDT): Recent exacerbation and treated. Continue bumex and aldactone. Refer to cardiology. MICHAEL (obstructive sleep apnea) 11/06/2023 Assessment & Plan (11/06/2023 5:07 PM EDT): Witnessed apnea in hospital and check sleep study. Essential hypertension, benign 10/02/2023 Assessment & Plan (10/14/2024 2:59 PM EDT): BP controlled and monitor PRN. Assessment & Plan (04/15/2024 4:31 PM EST): BP controlled and monitor PRN. Assessment & Plan (12/02/2023 3:03 PM EDT): BP controlled and monitor PRN. Assessment & Plan (11/06/2023 5:06 PM EDT): BP controlled and monitor PRN. Assessment & Plan (10/02/2023 12:26 PM EDT): BP controlled and monitor PRN. Disc disease, degenerative, cervical 10/02/2023 DDD (degenerative disc disease), lumbar 10/02/19 24 Dyslipidemia 10/02/2023 Gastroesophageal reflux disease 10/02/2023 Ocular palsy of right eye 10/02/2023 Diabetic polyneuropathy 10/02/2023 Assessment & Plan (10/14/2024 2:59 PM EDT): Neuropathy controlled with gabapentin and continue. Assessment & Plan (12/02/2023 3:03 PM EDT): Neuropathy controlled with gabapentin and continue. Assessment & Plan (10/02/2023 12:25 PM EDT): Neuropathy worse and increase gabapentin. Monitor labs. Type 2 diabetes mellitus wit h hyperglycemia, with long-term current use of insulin 10/02/2023 Assessment & Plan (12/14/2024 4:30 PM EDT): BS stable and follow with endo. Assessment & Plan (10/14/2024 2:59 PM EDT): BS stable and follow with endo. Assessment & Plan (04/15/2024 4:32 PM EST): BS stable and follow with endo. Assessment & Plan (12/02/2023 3:04 PM EDT): BS stable and follow with endo. Assessment & Plan (10/02/2023 12:27 PM EDT): BS low and decrease lantus to 15 units daily. Contact endo. Stick to ADA diet and limit carbs. Vitamin D deficiency 10/02/2023 Resolved Problems Problem Noted Date Diagnosed Date Resolved Date CKD stage 3a, GFR 45-59 ml/min 12/02/2023 01/13/2024 Edema of both legs 10/29/2023 Assessment & Plan (10/29/2023 10:59 AM EDT): Edema worse and stop lasix. Start bumex and add aldactone. Elevate legs PRN. Check echo. If worsens go to ER. Orthopnea 10/29/2023 11/06/2023 Osteomyelitis of left foot 10/02/2023 0 11/06/2023 Assessment & Plan (10/02/2023 12:26 PM EDT): Recent infection and surgery. Follow with specialists. Encounters Date Type Department Care Team Description 12/16/2024 Refill [facility] [address] [place] [phone] Tejas Bryant MD Diabetic polyneuropathy associated with type 2 diabetes mellitus (HCC); MDD (major depressive disorder), recurrent episode, moderate (HCC); Essential hypertension, benign 12/14/2024 3:45 PM EDT Office Visit [facility] [address] [place] [phone] Tejas Bryant MD Transient ischemic attack (Primary Dx); Stenosis of both internal carotid arteries; Type 2 diabetes mellitus with hyperglycemia, with long-term current use of insulin (HCC); Essential hypertension, benign 12/14/2024 Bamboo flowsheet [facility] [address] [place] [phone] Tejas Bryant MD 12/02/2024 Refill [facility] [address] [place] [address] Tejas Bryant MD Diabetic polyneuropathy associated with type 2 diabetes mellitus (HCC) 11/25/2024 Patient Outreach [facility] [address] [place] [address] Angela Trejo MA 11/13/2024 Refill [facility] [address] [place] [address] Tejas Bryant MD Essential hypertension, benign ; MDD (major depressive disorder), recurrent episode, moderate (HCC); Diabetic polyneuropathy associated with type 2 diabetes mellitus (HCC) 11/04/2024 3:40 PM EDT Office Visit [facility] [address] [facility] [address] [place] [phone] Rohan Chapman DPM 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); Xerosis cutis 11/04/2024 Bamboo flowsheet [facility] [address] [facility] [address] [place] [address] Rohan Chapman DPM 11/04/2024 Travel 10/19/2024 Refill [facility] [address] [place] [address] Tejas Bryant MD Chronic heart failure with preserved ejection fraction (HFpEF) (HCC) 10/17/2024 Refill [facility] [address] [place] [address] Tejas Bryant MD Essential hypertension, benign 10/14/2024 2:30 PM EDT Office Visit [facility] [address] [place] [place] [address] Tejas Bryant MD Essential hypertension, benign (Primary Dx); Diabetic polyneuropathy associated with type 2 diabetes mellitus (HCC); MDD (major depressive disorder), recurrent episode, moderate (HCC); BRYCE (generalized anxiety disorder) ; Chronic heart failure with preserved ejection fraction (HFpEF) (HCC); CKD stage 3b, GFR 30-44 ml/min ([facility]); Primary insomnia; Type 2 diabetes mellitus with hyperglycemia, with long-term current use of insulin (HCC); Vitreous hemorrhage, right eye (CMS-HCC); Type 2 diabetes mellitus with diabetic chronic kidney disease (HCC) 10/14/2024 Bamboo flowsheet [facility] [address] [place] [address] Tejas Bryant MD from Last 3 Months Family History Medical History Relation Name Comments Diabetes Brother Fredi Diego Diabetes Mother Greer Hypertension Mother Greer Diabetes Sister Hyperlipidemia Sister Hypertension Sister Relation Name Status Comments Brother Fredi Diego Father Alive Mother Greer Alive Sister Social History Tobacco Use Types Packs/Day Years Used Date Smoking Tobacco: Former Cigars Passive Smoke Exposure: Never Smokeless Tobacco: Current Tobacco Cessation:Ready to Q uit: Not Asked; Counseling Given: Yes Alcohol Use Standard Drinks/Week Comments Not Currently [...] Sign Reading Time Taken Comments Blood Pressure 116/60 12/14/2024 3:53 PM EDT Pulse 73 12/14/2024 3:53 PM EDT Temperature 36.6 C (97.8 F) 12/14/2024 3:53 PM EDT Respiratory Rate 20 12/14/2024 3:53 PM EDT Oxygen Saturation 92% 12/14/2024 3:53 PM EDT Inhaled Oxygen Concentration - - Weight 83.5 kg (184 lb) 12/14/2024 3:53 PM EDT Height 172.7 cm (5' 8 ) 12/14/2024 3:53 PM EDT Body Mass Index 27.98 12/14/2024 3:53 PM EDT Plan of Treatment Upcoming Encounters Date Type Department Care Team (Late st Contact Info) Description 01/20/2025 3:30 PM EDT Office Visit [facility] [address] [facility] [address] [place] [address] Rohan Chapman, DPM [address] [address] 02/01/2025 1:00 PM EDT Office Visit [facility] [address] [place] [address] Tejas Bryant MD [address] [place] [address] Health Maintenance Due Date Last Done Comments CT Colonography 1950 FIT-DNA 1950 FIT 1950 FOBT 1950 Sigmoidoscopy 1950 Pneumococcal Vaccine: 65+ Ye ars (1 of 2 - PCV) 12/20/1970 Medicare Annual Wellness (AWV) 01/12/2025 01/13/2024 Influenza Vaccine (#1) 2025 Diabetes: Urine Protein Screening 03/30/2025 024, 07/27/2020 Diabetes: Hemoglobin A1C 05/21/2025 025, 11/19/2024, 07/29/2024, Additional history exists Diabetes: Retinopathy Screening 10/13/2025 10/13/2024, 06/11/2024, 05/04/2024, Additional history exists Colonoscopy 07/26/2032 07/26/2022 Colorectal Cancer Screening 07/26/2032 Goals Goal Patient Goal Type Associated Problems Recent Progress Patient-Stated? Author Help patient manage antidepressant medication Care Plan Patient on antidepressant monitoring plan Munira Keyes Procedures Procedure Name Priority Date/Time Associated Diagnosis Comments DIABETIC RETINOPATHY SCREENING - OU - BOTH EYES Routine 05/04/2024 12:44 PM EST from Last 3 Months or Most Recently Relevant to Health Maintenance Results * Diabetic Retinopathy Screening - OU - Both Eyes (05/04/2024 12:44 PM EST) Anatomical Region Laterality Modality Head Other Tejas Bryant MD OPHTH PHOTOGRAPHY Final Result from Last 3 Months or Most Recently Relevant to Health Maintenance Additional Health Concerns Active Problems Noted Date Diagnosed Date Patient on antidepressant monitoring plan 2024 Insurance [employer] Care Teams Master Mechanic Relationship Specialty Start Date End Date Tejas Bryant MD [address] [place] [address] PCP - General Family Medicine 08/14/23
--- OUTSIDE RECORDS SUMMARY | 2024-12-30 15:19 | XMS_ITS | Encounter Summary ---
Author Organization [facility] Address [address] [place] [address] Care Team Providers Care Almond Pan Finisher Name Role Phone Tejas Bryant MD Primary Care Provider [phone] Encounter Details Date Type Department Care Team (Late st Contact Info) Description 09/22/2023 Lab Requisition [facility] Hospital Lab [address] [place] [phone] Rohan Shin MD [address] [place], [place] [phone] Social History Tobacco Use Types Packs/Day Years [...] documented as of this encounter Care Teams Almond Pan Finisher Relationship Specialty Start Date End Date Tejas Bryant MD [address] [place] [address] PCP - General Family Medicine 12/29/23 documented as of this encounter
--- OUTSIDE RECORDS SUMMARY | 2024-12-30 15:20 | XMS_ITS | Encounter Summary ---
Author Organization [facility] Address [address] [place] [address] Care Team Providers Care Beader Name Role Phone Tejas Bryant MD Primary Care Provider Tejas Bryant MD Unavailable Tejas Bryant MD Primary Care Provider Encounter Details Date Type Department Care Team (Late st Contact Info) Description 07/23/2023 Abstract [facility] [address] [place] [phone] Rohan Chapman DPM [address] [facility] [address] [place] [address] Social History Tobacco Use Types [...] Description 01/20/2025 3:30 PM EDT Office Visit [facility] [address] [facility] [address] [place] [phone] Rohan Chapman DPM [address] [address] 02/01/2025 1:00 PM EDT Office Visit [facility] [address] [place] [address] Tejas Bryant MD [address] [place] [address] documented as of this encounter Visit Diagnoses Not on filedocumented in this encounter Care Teams Beader Relationship Specialty Start Date End Date Tejas Bryant MD PCP - General Cardiology 11/07/22 08/13/23 Tejas Bryant MD [address] [place] [address] PCP - Devoted 05/26/23 05/25/24 Tejas Bryant MD [address] [place] [address] PCP - General Family Medicine 08/14/23 documented as of this encounter
--- OUTSIDE RECORDS SUMMARY | 2024-12-30 15:20 | XMS_ITS | Encounter Summary ---
Author Organization [facility] Address [address] [place] [address] Care Team Providers Care Netsuite Consultant Name Role Phone Tejas Bryant MD Primary Care Provider Tejas Bryant MD Unavailable Tejas Bryant MD Primary Care Provider [phone] Encounter Details Date Type Department Care Team (Late st Contact Info) Description 07/18/2023 External Result Encounter [facility] External Department Unsolicited Rohan Chapman DPM [address] [address] Social History Tobacco Use Types Packs/Day Years [...] Office Visit [facility] [address] [facility] [address] [place] [address] Rohan Chapman DPM [address] [facility] 5 [place] [address] 02/01/2025 1:00 PM EDT Office Visit [facility] [address] [place] [address] Tejas Bryant MD [address] [place] [address] documented as of this encounter Procedures Procedure Name Priority Date/Time Associated Diagnosis Comments XR FOOT 1-2 VIEWS LEFT 07/18/2023 4:23 PM EST documented in this encounter Results * XR foot 1 or 2 views left (07/18/2023 4:23 PM EST) Anatomical Region Laterality Modality Lower Extremities, Foot Left Radiogra phic Imaging 07/18/2023 4:23 PM EST Impressions 07/18/2023 4:27 PM EST SLIGHT LIMITED STUDY DUE TO POSITIONING. INTERVAL TRANSMETATARSAL AMPUTATION OF ALL DIGITS. Impression dictated by: Pallavi Hernandez M.D.07/18/2023 4:25 PM Dictation Location: [place] [address] Transcribed By: [facility] 07/18/23 1625 Dictated By: Pallavi Hernandez MD 07/18/231622 Signed By: <Electronically signed by MD Pallavi Hernandez in OV> 07/18/23 1625 Narrative 07/18/2023 4:27 PM EST [facility] Main [place] [id number] XRay Report Signed Patient: Sudeep Diego JR MR#: [id number] : 1950 Acct:[id number] Age/Sex: 72 / M ADM Date: 07/10/23 Loc: Room: [address] [place] [address] Type: ADM IN Attending Dr: Tello Nava MD Copies to: MD Rohan Storey DPM Ordering Provider: Rohan Chapman DPM Date of Service: 07/18/23 XR/XR foot LT 2V: tma post op LEFT FOOT - 2 views COMPARISON: 07/11/2023 CLINICAL DATA: Follow-up after amputation Lateral and attempted AP views were obtained. The AP view is limited by positioning. Patient is status post transmetatarsal amputation of all digits. There are no acute fractures or dislocation. There is spurring at the dorsum of the tarsals. There are posterior and plantar calcaneal spurs. There is a dressing at the stump where there is heterogeneous appearance of the soft tissues. There is atherosclerotic disease. XR/XR foot LT 2V Procedure Note Radiology, Radiologist, MD - 07/21/2023 [facility] Main [place] [address] [place] [address] XRay Report Signed Patient: Sudeep Diego [facility]#: [id number] : 2Acct:[id number] Age/Sex: 72 / MADM Date: 07/10/23 Loc: Room: [id number]: ADM IN Attending Dr: Tello Nava MD Copies to: MD Rohan Storey DPM Ordering Provider: Rohan Chapman DPM Date of Service: 07/18/23 XR/XR foot LT 2V: tma post op LEFT FOOT - 2 views COMPARISON: 07/11/2023 CLINICAL DATA: Follow-up after amputation Lateral and attempted AP views were obtained. The AP view is limited bypositioning. Patient is status post transmetatarsal amputation of all digits. There are no acutefractures or dislocation. There is spurring at the dorsum of the tarsals. There are posterior andplantar calcaneal spurs. There is a dressing at the stump where there is heterogeneous appearanceof the soft tissues. There is atherosclerotic disease. XR/XR foot LT 2V IMPRESSION: SLIGHT LIMITED STUDY DUE TO POSITIONING. INTERVAL TRANSMETATARSAL AMPUTATION OF ALL DIGITS. Impression dictated by: Pallavi Hernandez M.D.07/18/2023 4:25 PM Dictation Location: [place] [address] Transcribed By: KHADIJAH 07/18/23 0598 Dictated By: Pallavi Hernandez MD 07/18/23 1623 Signed By: <Electronically signed by MD Pallavi Hernandez in OV> 07/18/23 1625 us Rohan Chapman DPM IMG XR PROCEDURES Final Res ult documented in this encounter Visit Diagnoses Not on filedocumented in this encounter Care Teams Netsuite Consultant Relationship Specialty Start Date End Date Tejas Bryant MD PCP - General Cardiology 11/07/22 08/13/23 Tejas Bryant MD [address] [place] [address] PCP - Devoted 05/26/23 05/25/24 Tejas Bryant MD [address] [place] [address] PCP - General Family Medicine 08/14/23 documented as of this encounter
--- OUTSIDE RECORDS SUMMARY | 2024-12-30 15:20 | XMS_ITS | Encounter Summary ---
Author Organization [facility] Address [address] [place] [address] Care Team Providers Care Lawn Mower Mechanic Name Role Phone Tejas Bryant MD Primary Care Provider [phone] Tejas Bryant MD Unavailable Tejas Bryant MD Primary Care Provider Encounter Details Date Type Department Care Team (Late st Contact Info) Description 07/18/2023 Abstract [facility] [address] [place] [address] Rohan Chapman DPM 3[address] [facility] 5 [place] [address] Social History Tobacco Use Types [...] EDT Office Visit [facility] 112 [facility] 120 [place] [phone] Rohan Chapman DPM [address] [address] 02/01/2025 1:00 PM EDT Office Visit [facility] [address] [place] [address] Tejas Bryant MD [address] [place] [address] documented as of this encounter Visit Diagnoses Not on filedocumented in this encounter Care Teams Lawn Mower Mechanic Relationship Specialty Start Date End Date Tejas Bryant MD PCP - General Cardiology 11/07/22 08/13/23 Tejas rByant MD [address] [place] [address] PCP - Devoted 05/26/23 05/25/24 Tejas Bryant MD [address] [place] [address] PCP - General Family Medicine 08/14/23 documented as of this encounter
--- OUTSIDE RECORDS SUMMARY | 2024-12-30 15:20 | XMS_ITS | Encounter Summary ---
Author Organization [facility] Address [address] [place] [address] Care Team Providers Care Title Clerk Name Role Phone Tejas Bryant MD Primary Care Provider Tejas Bryant MD Unavailable Tejas Bryant MD Primary Care Provider Encounter Details Date Type Department Care Team (Late st Contact Info) Description 07/18/2023 Abstract [facility] [address] [place] [phone] Rohan Chapman DPM [address] [facility] 5 [place] [address] Social History Tobacco Use Types [...] EDT Office Visit [facility] 112 [facility] 120 [place] [phone] Rohan Chapman DPM [address] [address] 02/01/2025 1:00 PM EDT Office Visit [facility] [address] [place] [phone] Tejas Bryant MD [address] [place] [address] documented as of this encounter Visit Diagnoses Not on filedocumented in this encounter Care Teams Title Clerk Relationship Specialty Start Date End Date Tejas Bryant MD PCP - General Cardiology 11/07/22 08/13/23 Tejas Bryant MD [address] [place] [address] PCP - Devoted 05/26/23 05/25/24 Tejas Bryant MD [address] [place] [address] PCP - General Family Medicine 08/14/23 documented as of this encounter
--- OUTSIDE RECORDS SUMMARY | 2024-12-30 15:20 | XMS_ITS | Encounter Summary ---
Author Organization [facility] Address [address] [place] [address] Care Team Providers Care Dispatch Manager Name Role Phone Tejas Bryant MD Primary Care Provider Tejas Bryant MD Unavailable Tejas Bryant MD Primary Care Provider [phone] Encounter Details Date Type Department Care Team (Late st Contact Info) Description 07/16/2023 Abstract [facility] 3[address] [place] [phone] Rohan Chapman DPM 300 [facility] 5 [place] [address] Social History Tobacco Use Types [...] Office Visit [facility] 112 [facility] 120 [place] [phone] Rohan Chapman DPM [address] [address] 02/01/2025 1:00 PM EDT Office Visit [facility] [address] [place] [address] Tejas Bryant MD [address] [place] [address] documented as of this encounter Visit Diagnoses Not on filedocumented in this encounter Care Teams Dispatch Manager Relationship Specialty Start Date End Date Tejas Bryant MD PCP - General Cardiology 11/07/22 08/13/23 Tejas Bryant MD [address] [place] [address] PCP - Devoted 05/26/23 05/25/24 Tejas Bryant MD [address] [place] [address] PCP - General Family Medicine 08/14/23 documented as of this encounter
--- OUTSIDE RECORDS SUMMARY | 2024-12-30 15:20 | XMS_ITS | Encounter Summary ---
Author Organization [facility] Address [address] [place] [address] Care Team Providers Care Family Services Manager Name Role Phone Tejas Bryant MD Primary Care Provider [phone] Tejas Bryant MD Unavailable Tejas Bryant MD Primary Care Provider [phone] Encounter Details Date Type Department Care Team (Latest Contact Info) Description 08/13/2023 Abstract [facility] Darryl Britt, DO [address] [place] [address] Social History Tobacco Use Types [...] EDT Office Visit [facility] 112 [facility] 120 [place] [address] Rohan Chapman DPM 3006 [facility] 5 [place] [address] 02/01/2025 1:00 PM EDT Office Visit [facility] [address] [place] [address] Tejas Bryant MD [address] [place] [address] documented as of this encounter Visit Diagnoses Not on filedocumented in this encounter Care Teams Family Services Manager Relationship Specialty Start Date End Date Tejas Bryant MD PCP - General Cardiology 11/07/22 08/13/23 Tejas Bryant MD [address] [place] [address] PCP - Devoted 05/26/23 05/25/24 Tejas Bryant MD [address] [place] [address] PCP - General Family Medicine 08/14/23 documented as of this encounter
--- OUTSIDE RECORDS SUMMARY | 2024-12-30 15:20 | XMS_ITS | Encounter Summary ---
Author Organization [facility] Address [address] [place] [address] Care Team Providers Care Mixed Crop And Livestock Farmer Name Role Phone Tejas Bryant MD Unavailable Tejas Bryant MD Primary Care Provider [phone] Encounter Details Date Type Department Care Team (Late Contact Info) Description 11/05/2023 Abstract [facility] [address] [place] [address] Tejas Bryant MD [address] [place] [address] Social History Tobacco Use Types Packs/Day Years [...] EDT Office Visit [facility] 112 [facility] 120 [place] [address] Rohan Chapman DPM 3006 [facility] 5 [place] [address] 02/01/2025 1:00 PM EDT Office Visit [facility] [address] [place] [phone] Tejas Bryant MD [address] [place] [address] documented as of this encounter Visit Diagnoses Not on filedocumented in this encounter Care Teams Mixed Crop And Livestock Farmer Relationship Specialty Start Date End Date Tejas Bryant MD [address] [place] [address] PCP - Devoted 05/26/23 05/25/24 Tejas Bryant MD [address] [place] [address] PCP - General Family Medicine 08/14/23 documented as of this encounter
--- OUTSIDE RECORDS SUMMARY | 2024-12-30 15:20 | XMS_ITS | Encounter Summary ---
Author Organization [facility] Address [address] [place] [address] Care Team Providers Care Perioperative Manager Name Role Phone Tejas Bryant MD Unavailable Tejas Bryant MD Primary Care Provider Encounter Details Date Type Department Care Team (Late Contact Info) Description 10/31/2023 Orders Only [facility] [address] [place] [address] Tejas Bryant MD [address] [place] [address] Social History Tobacco Use Types Packs/Day Years [...] EDT Office Visit [facility] 112 [facility] 120 [place] [address] Rohan Chapman DPM 3006 [facility] 5 [place] [address] 02/01/2025 1:00 PM EDT Office Visit [facility] [address] [place] [address] Tejas Bryant MD [address] [place] [address] documented as of this encounter Procedures Procedure Name Priority Date/Time Associated Diagnosis Comments XR CHEST 2 VIEWS Routine 10/31/2023 11:58 AM EDT documented in this encounter Results * XR chest 2 views (10/31/2023 11:58 AM EDT) Anatomical Region Laterality Modality Chest Radiographic Radha ging Tejas Bryant MD IMG XR PROCEDURES Final Result documented in this encounter Visit Diagnoses Not on filedocumented in this encounter Care Teams Perioperative Manager Relationship Specialty Start Date End Date Tejas Bryant MD [address] [place] [address] PCP - Devoted 05/26/23 05/25/24 Tejas Bryant MD [address] [place] [address] PCP - General Family Medicine 08/14/23 documented as of this encounter
--- OUTSIDE RECORDS SUMMARY | 2024-12-30 15:20 | XMS_ITS | Encounter Summary ---
Author Organization [facility] Address [address] [place] [address] Care Team Providers Care Solidworks Designer Name Role Phone Tejas Bryant MD Primary Care Provider [phone] Tejas Bryant MD Unavailable Tejas Bryant MD Primary Care Provider [phone] Encounter Details Date Type Department Care Team (Late st Contact Info) Description 08/12/2023 External Result Encounter [facility] External Department Unsolicited Darryl Britt W, DO [address] [place] [address] Social History Tobacco Use Types [...] [address] [facility] 120 [place] [address] Rohan Chapman DPM 3006 [facility] 5 [place] [address] 02/01/2025 1:00 PM EDT Office Visit [facility] [address] [place] [address] Tejas Bryant MD [address] [place] [address] documented as of this encounter Procedures Procedure Name Priority Date/Time Associated Diagnosis Comments XR ABDOMEN 1 VIEW 08/12/2023 8:4 1 PM EDT documented in this encounter Results * XR abdomen 1 view (08/12/2023 8:41 PM EDT) Anatomical Region Laterality Modality Abdomen Radiographic Radha ging 08/12/2023 8:41 PM EDT Impressions 08/12/2023 8:45 PM EDT NG TUBE AT THE PROXIMAL STOMACH. ADVANCEMENT IS SUGGESTED. Impression dictated by: Pallavi Hernandez M.D.08/12/2023 8:42 PM Dictation Location: [place] [address] Transcribed By: [facility] 08/12/232041 Dictated By: Pallavi Hernandez MD 08/12/232040 Signed By: <Electronically signed by MD Pallavi Hernandez in OV> 08/12/232041 Narrative 08/12/2023 8:45 PM EDT [facility] Main [address] [address] XRay Report Signed Patient: Sudeep Diego JR MR#: [id number] : 1950 Acct:[id number] Age/Sex: 72 / M ADM Date: 08/01/23 Loc: Room: [address] [place] [address] Type: ADM IN Attending Dr: Geo Thomas DO Copies to: DO Geo Zhao DO Ordering Provider: Darryl Britt DO Date of Service: 08/12/23 XR/XR abdomen 1V: NG tube placement, Okay to use. PORTABLE KUB COMPARISON: 08/10/2023 CLINICAL DATA: NG tube placement Supine view of the left abdomen was obtained. The NG tube extends into the stomach. The side-port is near the GE junction and advancement is suggested. There is no dilated bowel. There are degenerative changes at the spine. XR/XR abdomen 1V Procedure Note Radiology, Radiologist, - 08/13/2023 [facility] [place] [address] XRay Report Signed Patient: Sudeep Diego [facility]#: [id number] : 1950cct:[id number] Age/Sex: 72 / MADM Date: 08/01/23 Loc: Room: [id number]: ADM IN Attending Dr: Geo Thomas DO Copies to: DO Geo Zhao DO Ordering Provider: Darryl Britt DO Date of Service: 08/12/23 XR/XR abdomen 1V: NG tube placement, Okay touse. PORTABLE KUB COMPARISON: 08/10/2023 CLINICAL DATA: NG tube placement Supine view of the left abdomen was obtained. The NG tube extends intothe stomach. The side-port is near the GE junction and advancement is suggested. There is no dilatedbowel. There are degenerative changes at the spine. XR/XR abdomen 1V IMPRESSION: NG TUBE AT THE PROXIMAL STOMACH. ADVANCEMENT IS SUGGESTED. Impression dictated by: Pallavi Hernandez M.D.08/12/2023 8:42 PM Dictation Location: [place] [address] Transcribed By: [facility] 08/12/232041 Dictated By: Pallavi Hernandez MD 08/12/232040 Signed By: <Electronically signed by MD Pallavi Hernandez in OV> 08/12/232041 us Darryl Britt DO IMG XR PROCEDURES Final Res ult documented in this encounter Visit Diagnoses Not on filedocumented in this encounter Care Teams Solidworks Designer Relationship Specialty Start Date End Date Tejas Bryant MD PCP - General Cardiology 11/07/22 08/13/23 Tejas Bryant MD [address] [place] [address] PCP - Devoted 05/26/23 05/25/24 Tejas Bryant MD [address] [place] [address] PCP - General Family Medicine 08/14/23 documented as of this encounter
--- OUTSIDE RECORDS SUMMARY | 2024-12-30 15:20 | XMS_ITS | Clinical Summary ---
Author Organization [facility] Address [address] [facility], [address] [place] [address] Care Team Providers Care Piercing Mill Operator Name Role Phone Rohan Shin MD Primary Care Provider [phone] Allergies No known active allergies Medications gemfibrozil (LOPID) 600 MG tablet Take 600 mg by mouth 2 times daily. Active vitamin D (ERGOCALCIFEROL) 96094 UNITS CAPS capsule Take 50,000 Units by mouth once a week. Active gabapentin (NEURONTIN) 100 MG capsule Take 100 mg by mouth 3 times daily. Active metoprolol (LOPRESSOR) 50 MG tablet Take 50 mg by mouth 2 times daily. Active meloxicam (MOBIC) 7.5 MG tablet Take 7.5 mg by mouth daily. Active omeprazole (PRILOSEC) 20 MG capsule Take 20 mg by mouth daily. Active traMADol (ULTRAM) 50 MG tablet Take 100 mg by mouth every 6 hours as needed. Active metformin (GLUCOPHAGE) 1000 MG tablet Take 1,000 mg by mouth 2 times daily (with meals). Active tiZANidine (ZANAFLEX) 4 MG tablet Take 4 mg by mouth every 8 hours as needed. Active Social History Tobacco Use Types Packs/Day Years Used Date Smoking Tobacco: Never Assessed Sex and Gender Information Value Date Recorded Sex Assigned at Not on file Legal Sex Male 4:41 PM EST Gender Identity Not on file Sexual Orientation Not on file Last Filed Vital Signs Vital Sign Reading Time Taken Comments Blood Pressure 132/86 08/22/2012 4:47 AM EDT Pulse 73 08/22/2012 2:45 AM EDT Temperature 36.1 C (97 F) 08/22/2012 2:45 AM EDT Respiratory Rate 16 08/22/2012 4:47 AM EDT Oxygen Saturation - - Inhaled Oxygen Concentration - - Weight - - Height - - Body Mass Index - - Plan of Treatment Not on file Insurance Care Teams Piercing Mill Operator Relationship Specialty Start Date End Date Rohan Shin MD [address] [place] [address] PCP - General Internal Medicine 09/16/23
[2024-12-30 15:40] LABS: Glucose Urine UA NEGATIVE (NEGATIVE)
[2024-12-30 15:41] LABS: Hematocrit 28.0 % (42.0-54.0); Hemoglobin 9.4 g/dL (14.0-18.0); Mean Corpuscular HGB Conc 33.6 g/dL (29.9-35.2); Mean Corpuscular Hemoglobin 30.6 pg (25.9-34.0); Mean Corpuscular Volume 91.2 fL (80.0-94.0); Platelet Count 338 10^3/uL (150-450); Red Blood Count 3.07 10^6/uL (4.70-6.10); White Blood Count 11.4 10^3/uL (4.0-11.0)
[2024-12-30 15:44] LABS: Protein Creatinine Ratio Urine 0.53; Total Protein Urine Random 80.4 mg/dL (<=11.9)
[2024-12-30 16:02] LABS: Albumin Level 3.6 g/dL (3.4-5.0); Anion Gap 9.3; Blood Urea Nitrogen 46.0 mg/dL (7.0-18.0); Calcium 8.8 mg/dL (8.5-10.1); Carbon Dioxide 29.6 mmol/L (21.0-32.0); Chloride 102 mmol/L (98-107); Estimated GFR (African America 29 (>=60 mL/min/1.73m^2); Estimated GFR (Non-African Ame 24 (>=60 mL/min/1.73m^2); Glucose 199 mg/dL (74-106); Potassium 3.9 mmol/L (3.5-5.1); Sodium 137 mmol/L (136-145); Uric Acid 9.8 mg/dL (3.5-7.2)
[2024-12-30 16:42] LABS: Folate 35.10 ng/mL (8.60-58.90)
[2025-01-01 05:07] LABS: Vitamin B12 401 pg/mL (232-1245)
== END 2024-12-30 15:14 | disposition home or self-care (01) ==
LOC: LAB 15:14
PROVIDERS: PCP Family Medicine; Visit Provider Internal Medicine Nephrology
DX: E87.5 Hyperkalemia (principal); N18.4 Chronic kidney disease, stage 4 (severe); E55.9 Vitamin D deficiency, unspecified; E11.21 Type 2 diabetes mellitus with diabetic nephropathy; D64.9 Anemia, unspecified
CPT/HCPCS: 36415; 80069; 81003; 82570; 82607; 82746; 84156; 84550; 85027

== ENCOUNTER 2025-04-12 14:38 | Outpatient (OUT) | payer MEDICARE, SELFPAY ==
--- OUTSIDE RECORDS SUMMARY | 2025-04-12 14:49 | XMS_ITS | CCD ---
Author Organization [facility] CliniSywv Care Team Providers Care Product Safety Tester Name Role Phone Louise Sotelo Unavailable DR TEJAS STEVENS Primary Care Unavailable CELINA Molina, DR TRENT Gallardo Attending Unavailable DR TRENT PIEDRA Admitting Unavailable GARIMA BUCHANAN Attending Unavailable GARIMA BUCHANAN Admitting Unavailable DR TEJAS STEVENS Primary Care Unavailable LEENA BELTRAN Consulting Unavailable GARIMA BUCHANAN Consulting Unavailable Dhruv Bautista Unavailable Pamela Berry Unavailable MD Dhruv Bautista Attending Provider MD Tejas Stevens Primary Care Provider [phone] DO Rico Carr Emergency Provider MD Brennan Cerrato Admit Provider MD Brennan Cerrato Attending Provider MD Michael Ramírez Other Provider TOY Han Other Provider JULIA Slater Other Provider Unavailable MD Dhruv Bautista Other Provider MARCO ANTONIO Berry Other Provider MD Mayra Youngblood Other Provider MD Giovanni Ni Other Provider DO Orestes Mejia Attending Provider MD Michael Ramírez Attending Provider [phone] DO John Ervin Primary Care Provider LELAND Sotelo Attending Provider TOY Han Attending Provider MD Dhruv Bautista Attending Provider MD Tejas Stevens Primary Care Provider [phone] DO Rico Carr Emergency Provider MD Brennan Cerrato Admit Provider MD Michael Ramírez Other Provider TOY Han Other Provider JULIA Slater Other Provider Unavailable MD Dhruv Bautista Other Provider [phone] ANDRES Berry-C Pamela Locke Other Provider MD [facility] Other Provider MD Giovanni Ni Other Provider DO Orestes Mejia Attending Provider [phone] MD Michael Ramírez Attending Provider [phone] DO John Ervin Primary Care Provider LELAND Sotelo Attending Provider TOY Han Attending Provider Michael Ramírez Unavailable Tejas Stevens MD Primary Care Provider [phone] Tejas Stevens MD Unavailable DO John Ervin [...] Other Provider MD Mayra Youngblood Other Provider [phone] MD Sanket Hammer Other Provider JULIA Slater Other Provider Unavailable MD Dhruv Bautista Other Provider MARCO ANTONIO Berry Other Provider MD Giovanni Ni Other Provider MD Hermes Morton Other Provider [phone] DO Geo Thomas Attending Provider MD Rancho Kay Attending Provider DO Geo Thomas Admit Provider LELAND Arriaga Other Provider MD Fabio Camacho Other Provider MD Mehul Garrett Other Provider MD Mayra Mccarthy Other Provider DO Sebastian Flores Other Provider MD Saige Jolley Other Provider MD John Beyer Other Provider MD Pravin Meza Other Provider DO Andi Han M Other Provider DO Fabiola Fernandes Other Provider MD Bennie Varner Other Provider MD Sury Winkler Other Provider Tracy 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 PRINTING PAPER-C Chyna Other Provider Unavailable MD Rancho Kay Other Provider MD José Miguel Willingham Other Provider MD [place] Other Provider Tika Monteiro Other Provider Unavailable DO Debbie Dennis Other Provider MD Claude Lackey Other Provider DO Mehul Cordon Other Provider Sydney, ANP-BC Sindy Other Provider DO Pravin Rivers Other Provider LELAND Kamara Other Provider ANDRES Casey-C Crystal Gallardo Other Provider LELAND Holm-STORAGE ENGINEER-C Nikki Morrison Other Provider DO Darryl Britt Other Provider MD Arnaldo Thomas Attending Provider MD Tejas Stevens Primary Care Provider [phone] Lindbloom, DO Geo Admit Provider LELAND Arriaga Other Provider MD Fabio Camacho Other Provider MD Mehul Garrett Other Provider MD Mayra Mccatrhy Other Provider DO Sebastian Flores Other Provider MD Saige Jolley Other Provider MD John Beyer Other Provider MD Pravin Meza Other Provider DO Andi Han Other Provider DO Fabiola Fernandes Other Provider MD Bennie Varner Other Provider MD Sury Winkler Other Provider ANDRES Molina-C Chyna Other Provider Unavailable MD Rancho Kay Other Provider MD José Miguel Willingham Other Provider MD [place] Other Provider MD Sanket Hammer Other Provider Tika Monteiro Other Provider Unavailable DO Debbie Dennis Other Provider MD Claude Lackey Other Provider DO Mehul Cordon Other Provider Sydney ANP-BC Sindy Other Provider DO Pravin Rivers Other Provider LELAND Kamara Other Provider MARCO ANTONIO Casey Other Provider LELAND Holm-STORAGE ENGINEER-C Nikki Morrison Other Provider DO Darryl Britt Other Provider TOY Han Other Provider MD Michael Ramírez Other Provider MD Arnaldo Thomas Attending Provider SNEHAL VARGAS I Attending Unavailable TEJAS STEVENS Referring Unavailable NADERER, TEJAS Primary Care Unavailable KENNETH GONZALES Attending Unavailable ANNETTE, TEJAS Referring Unavailable NADERENilay, TEJAS Primary Care Unavailable Annette PIERRE, Tejas Primary Care Provider Tejas Stevens MD Primary Care Provider [phone] Annette PIERRE, Tejas Primary Care Provider [phone] ELTAHAWY, EHAB Attending Unavailable ELTAHAWY, EHAB Attending Unavailable Farzana Jr, Jony T Attending Unavailable Farzana Jr, Jony T Referring Unavailable Al Shweiki, Gorge Attending Unavailable Al Shweiki, Gorge Attending Unavailable Al Shweiki, Gorge Attending Unavailable Al Shweiki, Gorge Referring Unavailable Al Shweiki, Gorge Attending Unavailable Al Shweiki, Gorge Referring Unavailable Al Shweiki, Gorge Attending Unavailable Farzana Jr, Jony T Attending Unavailable Farzana Jr, Jony T Referring Unavailable SNEHAL VARGAS I Referring Unavailable NADDANYELLR, TEJAS Primary Care Unavailable NADERER, TEJAS Primary Care Unavailable INPATIENT, TELENEUROLOGY Consulting Unavail able ANTHONY RUBIN Admitting Unavailable ANTHONY RUBIN NIMDUSTIN Attending Unavailable LICHA MEDRANO Consulting Unavailable Tejas Stevens MD Primary Care Provider SAMANTHA, EHAD Admitting Unavailable SAMANTHA, EHAD Attending Unavailable SINA ABDUL Referring Unavailable KARTIKR, TEJAS Primary Care Unavailable ANTHONY RUBIN Referring Unavailable NADDANIELE, TEJAS Primary Care Unavailable LICHA MEDRANO Attending Unavailable ANNETTE, TEJAS Referring Unavailable ANNETTE, TEJAS Primary Care Unavailable Tejas Stevens MD Primary Care Provider Sanket Hammer MD Attending Provider [phone] Louise Sotelo APRN Attending Provider Tejas Stevens MD Attending Provider Tejas Stevens MD Primary Care Provider [phone] ROHAN HNA Attending Unavailable NADERER, TEJAS Attending Unavailable ROHAN HAN Attending Unavailable TEJAS STEVENS Attending Unavailable ROHAN HAN Attending Unavailable ROHAN HAN Attending Unavailable TEJAS STEVENS Attending Unavailable Luna Joyce APRN Emergency Provider [phone] Lnua Joyce Admitting Unavailable Luna Joyce Attending Unavailable Tejas Stevens Primary Care Unavailable Tejas Stevens MD Unavailable Tejas Stevens MD Primary Care Provider Tejas Stevens MD Primary Care Provider Sanket Hammer MD Attending Provider [place] Louise HA Attending Provider [phone] Tejas Stevens MD Attending Provider Isiah Luna HA Emergency Provider [phone] Allergies Allergy ClassificationReported Allergen(s)Allergy TypeDate of OnsetReaction(s) Facility (20 sources)Lisinopril; Translations: [LISINOPRIL]Drug [id number] SWELLING, Facial Swelling, [facility]emaK[facility] (20 sources)metFORMIN; Translations: [METFORMIN]Drug Guwwmlz59-48-8077Uayml (See Comments)[facility] (1 source)[facility] AcidsDrug [facility]ergyU[facility] (1 source)metFORMINDrug AllergyThe [facility] (20 sources)cefepime; Translations: [CEFEPIME]Drug Rvyjoud38-78-6552Bkfki, Shortness Of BreathK[facility]tering Health [facility] (20 sources)LisinoprilAllergy to kzenytgpt21-31-2015[facility] (4 sources)Vancomycin; Translations: [VANCOMYCIN]Drug Jntlfih12-64-3453 [facility]ository (1 source)cefepimeDrug Jladpga29-10-4782GptaybahpKettering [facility] (1 source)LisinoprilDrug Vhgwwup94-37-8016EygfeuogxKettering [facility] (1 source)metFORMINDrug Efhwmgk54-65-0276NlhuacmogKettering Health [facility] Medications Current Medications MedicationDrug Class(es)DatesSig (Normalized)Sig (Original)acetaminophen 325 mg / HYDROcodone bitartrate 5 mg oral tablet (2 sources)Opioid AgonistStart: 90-23-5736lvfv 1 tablet by mouth every six hours as needed for painHydrocodone-Acetaminophen 5-325 mg tablet Active 1 TAB PO Q6H as needed for pain 12 3 0 March 11, 2025 Acute pain of right shoulder Pain in right shoulder Complies with drug therapyallopurinol 100 mg oral tablet (4 sources)Xanthine Oxidase InhibitorStart: 90-06-3110fhvv 1 tablet by mouth once dailyAllopurinol 100 mg tablet Active 100 MG PO Daily 90 1 January 18, 2025 11:00pm Complies with drug therapyamLODIPine 10 mg oral tablet (20 sources)Dihydropyridine Calcium Channel BlockerStart: 10-14-2023 End: 84-87-3760qnry 1 tablet by mouth once dailyAmlodipine 10 mg tablet Active 10 MG PO Daily January 05, 2024 11:00pm Complies with drug therapyStart: 09-29-2023 End: 95-74-5250espy 2 tablets by mouth once dailyAmlodipine 5 mg tablet Discontinued 10 MG PO Daily September 28, 2023 11:00pm January 06, 2024 3:33pmStart: 09-29-2023 End: 67-49-7029vvue 10 mg by mouth once dailyAmlodipine Discontinued 10 MG PO Daily September 29, 2023 12:00am January 06, 2024 4:33pmStart: 07-23-2023 End: 87-76-8142Lvshuycjna 10 mg Tablet Discontinued 10 MG OG-TUBE Daily 0 0 August 22, 2023 11:00pm September 2841:20pmaspirin 81 mg chewable tablet (20 sources)Platelet Aggregation Inhibitor, Nonsteroidal Anti-inflammatory Drug Start: 47-75-6810pmts 1 tablet by mouth once dailyAspirin 81 mg tablet,chewable Active 81 MG PO Daily January 12, 2025 11:00pm Complies with drug therapyStart: 68-00-6386jglbcyj 81 mg chewable tablet Chew 1 tablet (81 mg total) and swallow in the morning. 90 tablet 11/24/2024 ActiveStart: 01-13-2023 End: 71-66-7598ctda 1 tablet by mouth once dailyAspirin 81 mg tablet,delayed release (DR/EC) Discontinued 81 MG PO Daily 90 90 0 January 12, 2023 11:00pm February 23, 2023 4:15pm pt states was told to hold medicationblood-glucose sensor (FreeStyle Armando 3 Plus Sensor) (5 sources)Start: 21-33-4862ciauy-glucose sensor (FreeStyle Armando 3 Plus Sensor) Active .ROUTE January 12, 2025 11:00pmStart: 11-99-8213gwosk-glucose sensor (FreeStyle Armando 3 Plus Sensor) Active .ROUTE January 13, 2025 12:00amBlood- Glucose Sensor (Freestyle Armando 3 Plus Sensor) device (2 sources)Start: 41-68-9344Hcckk-Glucose Sensor (Freestyle Armando 3 Plus Sensor) device Active 0 .Route 6 3 February 27, 2025 11:00pm Type 2 diabetes mellitus with hyperglycemia shelter (current) use of insulin Use to monitorBG, change every 15 daysStart: 28-49-2770Zxnjp-Glucose Sensor (Freestyle Armando 3 Plus Sensor) device Active 0 .Route 6 3 February 28, 2025 12:00am Type 2 diabetes mellitus with hyperglycemia shelter (current) use of insulin Use to monitorBG, change every 15 dayscholecalciferol 0.05 mg oral tablet (20 sources)Vitamin DStart: 03-44-6616whup 1 tablet by mouth once daily Cholecalciferol (Vitamin D3) 50 mcg (2,000 unit) tablet Active 50 MCG PO Daily January 31, 2025 11:00pm Complies with drug therapy0.5 ML dulaglutide 6 MG/ML Auto-Injector [Trulicity] (20 sources)GLP-1 Receptor AgonistStart: 93-29-3765kktqvs 3 mg by subcutaneous injection every weekTrulicity 3 MG/0.5ML 3mg Subcutaneous once weekly Jan, ActiveStart: 52-03-6549Ianjmkqay 0.75 MG/0.5ML as directed Subcutaneous weekly Jul, ActiveStart: 49-93-0689Fwnzzrkgy 1.5 MG/0.5ML as directed Subcutaneous weekly Jul, Activeinject 3 mg by subcutaneous injection every weekTrulicity 3 MG/0.5ML 3mg Subcutaneous once weekly Activedulaglutide (TRULICITY) 3 mg/0.5 mL pen injector (5 sources)inject 3 mg by subcutaneous injection every weekdulaglutide (TRULICITY) 3 mg/0.5 mL pen injector Inject 3 mg under the skin once a week. Activeinject 3 mg by subcutaneous injection every weekdulaglutide (TRULICITY) 3 mg/0.5 mL pen injector Inject 3 mg under the skin once a week. 0 Activeferrous sulfate 325 mg oral tablet (20 sources)Start: 19-13-9968wfbr 1 tablet by mouth twice dailyFerrous Sulfate 325 mg (65 mg iron) tablet Active 325 MG PO Twice daily 60 April 07, 2024 12:00am Complies with drug therapyfolic acid 1 mg oral tablet (11 sources)Start: 08-31-2024 End: 67-64-0125vhab 1 tablet by mouth once dailyFolic Acid 1 mg tablet Active 1 MG PO Daily 90 February 15, 2025 2:15pm Complies with drug therapyFREESTYLE ARMANDO 2 PLUS SENSOR device (2 sources)Start: 69-29-9097PLOTJWOAU ARMANDO 2 PLUS SENSOR device 11/16/2024 ActiveFreeStyle Armando 2 [place] - (5 sources)Start: 58-79-7234WcdaCrzzq Armando 2 [place] - Use with Armando 2 sensors SQ daily for 365 days E11.40 Feb, ActiveFreeStyle Armando 2 Sensor - (20 sources)FreeStyle Armando 2 Sensor - Change sensor EVERY 14 days for 84 Active FreeStyle Armando 2 Sensor - as directed SQ Change every 14 days for 84 days ActiveFREESTYLE ARMANDO 2 SENSOR kit (2 sources)Start: 78-90-4309BSMJDHEZH ARMANDO 2 SENSOR kit USE DIRECTED to test BLOOD SUGAR change EVERY 14 days 10/19/2024 Activegabapentin 300 mg oral capsule (20 sources)Anti-epileptic AgentStart: 12-30-2023 End: 98-07-2457sxrv 1 capsule by mouth three times dailyGabapentin 300 mg capsule Active 300 MG PO Three times daily January 05, 2024 11:00pm Complies with drug therapyStart: 10-21-2023 End: 78-83-6205nalf 3 capsules by mouth three times dailyGabapentin 100 mg capsule Discontinued 300 MG PO Three times daily October 21, 2023 12:13pm January 06, 2024 3:35pmStart: 09-29-2023 End: 45-40-4839dxot 1 capsule by mouth once daily at bedtimeGabapentin 100 mg capsule Discontinued 100 MG PO Daily at bedtime September 28, 2023 11:00pm October 21, 2023 12:17pmStart: 09-29-2023 End: 15-06-3578lajv 300 mg by mouth three times dailyGabapentin Discontinued 300 MG PO Three times daily October 21, 2023 1:13pm January 06, 2024 4:35pmStart: 08-23-2023 End: 08-34-3552Rzeaxrrjhj 300 mg/6 mL (6 mL) Solution Discontinued 100 MG NG- TUBE Every evening 0 August 22, 2023 11:00pm September 29, 2023 1:24pmStart: 08-23-2023 End: 91-19-5468Xsexw: 07-26-2023 End: 78-78-2914rgtt 1 capsule by mouth once daily in the eveningGabapentin 300 mg Capsule Discontinued 300 MG PO Every evening July 26, 2023 12:00am August 23, 2023 11:55amStart: 07-25-2023 End: 86-13-2930Gejvehauoo 800 mg tablet Discontinued 300 MG PO Daily July 25, 2023 2:47pm July 26, 2023 11:22amStart: 07-25-2023 End: 94-68-9779umvs 300 mg by mouth once dailyGabapentin Discontinued 300 MG PO Daily July 25, 2023 3:47pm July 26, 2023 12:22pmStart: 01-13-2023 End: 16-86-2267sokv 1 tablet by mouth three times dailyGabapentin 800 mg tablet Discontinued 800 MG PO Three times daily January 12, 2023 11:00pm July 25, 2023 2:47pmtake 1 tablet by mouth every eight hoursGabapentin 600 MG 1 capsule Orally tid for 30 day(s) ActivehydrALAZINE hydrochloride 50 mg oral tablet (20 sources)Arteriolar VasodilatorStart: 11-18-2024 End: 37-88-6814Sadtsjrxpcr 50 mg tablet Active 75 MG PO Three times daily 405 90 February 21, 2025 8:59am Complies with drug therapyStart: 08-10-2024 End: 74-18-4538xfjz 1 tablet by mouth three times dailyHydralazine 50 mg tablet Discontinued 0 .ROUTE .COMPLEX 270 October 18, 2024 8:18am November 18, 2024 12:25pm TAKE 1 TABLET BY MOUTH THREE TIMES DAILYStart: 03-66-9840kkzu 1.5 tablets by mouth three times dailyhydrALAZINE (APRESOLINE) 50 mg tablet Take 1.5 tablets (75 mg total) by mouth 3 (three) times a day. 07/12/2024 ActiveStart: 06-09-2024 End: 91-32-6917dxee 1 tablet by mouth three times dailyHydralazine 50 mg tablet Discontinued 50 MG PO Three times daily June 09, 2024 2:04pm August 10, 2024 1:34pmStart: 06-08-2024 End: 20-02-3948bqec 1 tablet by mouth three times dailyHydralazine 50 mg tablet Discontinued 0 .ROUTE .COMPLEX 90 June 08, 2024 12:06pm June 09, 2024 2:09pm TAKE 1 TABLET BY MOUTH THREE TIMES DAILYStart: 05-03-2024 End: 06-39-7019plob 1 tablet by mouth three times dailyHydralazine 50 mg tablet Discontinued 50 MG PO Three times daily 90 May 03, 2024 5:58pm June 08, 2024 12:06pmStart: 04-07-2024 End: 20-71-9050rnfd 1 tablet by mouth three times dailyHydralazine 25 mg tablet Discontinued 25 MG PO Three times daily 90 April 07, 2024 12:00am De cember 2023 5:57pmibuprofen 200 mg oral tablet (20 sources)Nonsteroidal Anti-inflammatory Drugtake 1 tablet by mouth every six hours as needed for painibuprofen (ADVIL,MOTRIN) 200 mg tablet Take 1 tablet (200 mg total) by mouth every 6 (six) hours asneeded for pain. ActiveMotrin Active3 ml insulin glargine 100 unt/ml pen injector (20 sources)Insulin AnalogStart: 60-42-1464Sfuceqg Glargine (Basaglar Kwikpen U- 100 Insulin) 100 unit/mL (3 mL) insulin pen Active 12 UNIT SUBCUT Twice daily January 13, 2025 3:20pm Complies with drug therapyStart: 07-29-2024 End: 93-65-5848Dyjfilc Glargine (Basaglar Kwikpen U-100 Insulin) 100 unit/mL (3 mL) insulin pen Discontinued 14 UNIT SUBCUT Twice daily July 29, 2024 2:48pm January 13, 2025 3:20pmStart: 06-09-2024 End: 84-60-6039Ffmzcqz Glargine (Basaglar Kwikpen U-100 Insulin) 100 unit/mL (3 mL) insulin pen Discontinued 18 UNIT SUBCUT Twice daily June 09, 2024 2:05pm July 29, 2024 2:49pmStart: 04-19-2024 End: 38-77-5278Xpyyglj Glargine (Basaglar Kwikpen U-100 Insulin) 100 unit/mL (3 mL) insulin pen Discontinued 16 UNIT SUBCUT Twice daily April 19, 2024 4:03pm June 09, 2024 2:09pmStart: 01-05-2024 End: 66-30-5177Rdvylsk Glargine (Basaglar Kwikpen U-100 Insulin) 100 unit/mL (3 mL) insulin pen Discontinued 18 UNIT SUBCUT Twice daily April 19, 2024 12:00am April 19, 2024 4:04pmStart: 65-02-4669pipseih glargine (LANTUS, SEMGLEE) 100 unit/mL (3 mL) insulin pen Inject 16 Units under the skin inthe morning and at bedtime. 01/05/2024 ActiveStart: 54-22-9551mgpveks glargine (LANTUS, SEMGLEE) 100 unit/mL (3 mL) insulin pen 18 Units. 01/05/2024 Active Start: 09-18-2023 End: 39-51-0800Uqieeu SoloStar 100 UNIT/ML pen INJECT 20 UNITS SUBCUTANEOUSLY at BREAKFAST and AT BEDTIME 09/18/2023 12/14/2024 DiscontinuedStart: 08-23-2023 End: 42-91-7372Yyszjzf Glargine (Lantus Solostar U-100 Insulin) 100 unit/mL (3 mL) insulin pen Discontinued 20 UNIT SUBCUT Twice daily October 21, 2023 12:14pm January 05, 2024 4:04pmStart: 02-23-2023 End: 42-24-9515Qhmrmie Glargine (Basaglar Kwikpen U-100 Insulin) 100 unit/mL (3 mL) Insulin Pen Discontinued 37 UNIT SUBCUT 2 times daily February 22, 2023 11:00pm August 23, 2023 11:55amStart: 58-98-5316Olzcgoq Glargine (Basaglar Kwikpen U-100 Insulin) 100 unit/mL (3 mL) Insulin Pen Active 41 UNIT SUBCUT 2 times daily February 22, 2023 11:00pminject 100 [IU] by subcutaneous injection at bedtimeinsulin glargine (Basaglar KwikPen) 100 UNIT/ML pen Inject under the skin at bedtime Activeinject 40 [IU] by subcutaneous injection in the morninginsulin glargine (LANTUS, BASAGLAR) 100 unit/mL (3 mL) insulin pen Inject 40 Units under the skin in the morning and 40 Units before bedtime. Active Basaglar KwikPen 100 UNIT/ML 25 units Subcutaneous qam (titrate up to max 40 units/day) Activeinject 40 [IU] by subcutaneous injection in the morninginsulin glargine (LANTUS, BASAGLAR) 100 unit/mL (3 mL) insulin pen Inject 40 Units under the skin in the morning and 40 Units before bedtime. 0 ActiveBasaglar KwikPen 100 UNIT/ML 40 units Subcutaneous bid ActiveInsulin Lispro (Humalog Kwikpen Insulin) 100 unit/mL insulin pen (20 sources)Start: 17-37-1530Wvpsgkm Lispro (Humalog Kwikpen Insulin) 100 unit/mL insulin pen Active 0 SUBCUT Three times daily July 29, 2024 5:12pm 1-2-3 units ac according to meal size plus corrective scale 1:50 ac subcutaneo usly three times daily;Start: 06-09-2024 End: 48-93-1178eucopn 1 dose by subcutaneous injection three times dailyInsulin Lispro (Humalog Kwikpen Insulin) 100 unit/mL insulin pen Discontinued 1 sliding scale dose SUBCUT Three times daily June 09, 2024 3:06pm July 29, 2024 5:13pmStart: 67-78-9119ylohrd 1 dose by subcutaneous injection three times daily Insulin Lispro (Humalog Kwikpen Insulin) 100 unit/mL insulin pen Active 1 sliding scale dose SUBCUTThree times daily June 09, 2024 3:06pmStart: 07-55-3930hjloxv 1 dose by subcutaneous injection three times dailyInsulin Lispro (Humalog Kwikpen Insulin) 100 unit/mL insulin pen Active 1 sliding scale dose SUBCUTThree times daily June 09, 2024 2:06pmStart: 04-19-2024 End: 84-02-9555Ntxoscg Lispro (Humalog Kwikpen Insulin) 100 unit/mL insulin pen Discontinued 0 SUBCUT Use as Directed April 19, 2024 5:03pm May 25, 2024 9:44am 1-2-3 units ac according to meal size pluscorrective scale 1:50 ac tid subcutaneously use as directed;Start: 04-19-2024 End: 44-71-1579Bmfvytz Lispro (Humalog Kwikpen Insulin) 100 unit/mL insulin pen Discontinued 0 SUBCUT Use as Directed April 19, 2024 4:03pm May 25, 2024 8:44am 1-2-3 units ac according to meal size pluscorrective scale 1:50 ac tid subcutaneously use as directed;Start: 01-05-2024 End: 86-48-4305Cgxeatt Lispro (Humalog Kwikpen Insulin) 100 unit/mL insulin pen Discontinued 0 SUBCUT Use as Directed January 05, 2024 3:04pm April 19, 2024 5:04pm subcutaneously use as directed; 03-09-2025 units ac according to meal size tid plus ISS 1:15 ac (hs if >200 half dose), SQ, as directed, Notes: expect up to 60 units/dayStart: 01-05-2024 End: 68-17-4325Qaeuxzi Lispro (Humalog Kwikpen Insulin) 100 unit/mL insulin pen Discontinued 0 SUBCUT Use as Directed January 05, 2024 2:04pm April 19, 2024 4:04pm subcutaneously use as directed; 10-15-20-25 units ac according to meal size tid plus ISS 1:15 ac (hs if >200 half dose), SQ, as directed, Notes: expect up to 60 units/dayStart: 79-15-9972Kxqwwbi Lispro (Humalog Kwikpen Insulin) 100 unit/mL insulin pen Active 0 SUBCUT Use as Directed January 05, 2024 2:04pm subcutaneously use as directed; 10-15-20-25 units ac according to meal size tid plus ISS 1:15 ac (hs if >200 half dose), SQ, as directed, Notes: expect up to 60 units/dayStart: 18-13-7674Ohbleca Lispro (Humalog Kwikpen Insulin) 100 unit/mL insulin pen Active 0 SUBCUT Use as Directed January 05, 2024 3:04pm subcutaneously use as directed; 10-15-20-25 units ac according to meal size tid plus ISS 1:15 ac (hs if >200 half dose), SQ, as directed, Notes: expect up to 60 units/dayStart: 01-05-2024 End: 78-51-9877Uomeibd Lispro (Humalog Kwikpen Insulin) 100 unit/mL insulin pen Discontinued 1 sliding scale dose SUBCUT Use as Directed January 04, 2024 11:00pm January 05, 2024 2:04pmStart: 01-05-2024 End: 32-62-0428Seikfcv Lispro (Humalog Kwikpen Insulin) 100 unit/mL insulin pen Discontinued 1 sliding scale dose SUBCUT Use as Directed January 05, 2024 12:00am January 05, 2024 3:04pmStart: 09-29-2023 End: 11-50-6692Oizrhct Lispro (Humalog Kwikpen Insulin) 100 unit/mL insulin pen Discontinued 0 SUBCUT Use as Directed September 28, 2023 11:00pm October 21, 2023 12:15pm subcutaneously use as directed; 10-15-20-25 units ac according to meal size tid plus ISS 1:15 ac (hs if >200 half dose)Start: 09-29-2023 End: 32-06-1822Uwzvown Lispro (Humalog Kwikpen Insulin) 100 unit/mL insulin pen Discontinued 0 SUBCUT Use as Directed September 29, 2023 12:00am October 21, 2023 1:15pm subcutaneously use as directed; 10-15-20-25 units acaccording to meal size tid plus ISS 1:15 ac (hs if >200 half dose)3 ml insulin lispro 50 unt/ml / insulin lispro protamine, human 50 unt/ml pen injector (20 sources)Insulin Analoginsulin lispro protamine-insulin lispro (HumaLOG MIX 50/50 KWIKPEN) (50-50) 100 UNIT/ML injection Inject under the skin 2 (two) times a day with meals Activeketorolac tromethamine 5 mg/ml ophthalmic solution (6 sources)Nonsteroidal Anti-inflammatory Drug, Cyclooxygenase InhibitorStart: 16-74-1772gsymqhcsv (Acular) 0.5 % ophthalmic solution Administer 1 drop into both eyes in the morning and 1 drop at noon and 1 drop in the evening and 1 drop before bedtime. 0 06/16/2022 Activemeropenem 1000 mg injection (12 sources)Penem AntibacterialStart: 14-42-2251sqlkvjqww (Merrem) 1 g injection Start: 82-13-6302Aocxskxse 1 GM as directed Intravenous q 12 for 33 days dc cefepime Feb, ActiveMeropenem 1 GM as directed Intravenous q 12 for 14 days ActiveMeropenem 1 GM as directed Intravenous ActivemetFORMIN hydrochloride 1000 mg oral tablet (6 sources)Biguanidetake 1 tablet by mouth at mealtimemetFORMIN (Glucophage) 1000 MG tablet Take 1,000 mg by mouth in the morning. Take with meals. 0 Active methocarbamol 750 mg oral tablet (2 sources)Muscle RelaxantStart: 80-99-7730hahx 1 tablet by mouth four times daily as needed for muscle spasmsMethocarbamol 750 mg tablet Active 750 MG PO Four times daily as needed for spasms 60 0 January 31, 2025 11:00pm Complies with drug uoruvrh18 hr metoprolol succinate 50 mg extended release oral tablet (20 sources)beta-Adrenergic BlockerStart: 11-13-2023 End: 31-33-5491mblk 1 tablet by mouth once dailyMetoprolol Succinate 50 mg tablet extended release 24 hr Active 50 MG PO Daily January 05, 2024 11:00pm Complies with drug therapyStart: 08-23-2023 End: 65-68-6749Czxqgfwvck Tartrate 50 mg Tablet Discontinued 50 MG NG-TUBE Twice daily 0 0 August 22, 2023 11:00pm September 29, 2023 1:31pmStart: 08-23-2023 End: 08-88-3185tvis 1 tablet by mouth twice dailyMetoprolol Tartrate 50 mg tablet Discontinued 50 MG PO Twice daily September 29, 2023 1:25pm January 06, 2024 3:30pmStart: 01-13-2023 End: 20-38-2867vgbx 1 tablet by mouth once dailyMetoprolol Succinate 50 mg tablet extended release 24 hr Discontinued 50 MG PO Daily January 12, 2023 11:00pm August 23, 2023 11:55amStart: 26-58-2062guva 1 tablet by mouth every twenty-four hours in the morningmetoprolol succinate XL (TOPROL XL) 50 mg 24 hr tablet Take 1 tablet (50 mg total) by mouth in the morning. 05/06/2022 Active Metoprolol Succinate ER ActiveOne Touch Glucometer 1 (20 sources)Start: 63-87-6981Miq Touch Glucometer 1 use to test blood sugars 250.02 / V58.67 4 x daily Oct, ActiveOneTouch Ultra Blue 100 pack (20 sources)OneTouch Ultra Blue 100 pack use with One Touch Ultra Glucometer 4 x daily for 90 day(s) E11.40 ActivepredniSONE 50 mg oral tablet (1 source)Start: 66-21-8634sjbg 1 tablet by mouth once dailyPrednisone 50 mg tablet Active 50 MG PO Daily 6 0 March 29, 2025 12:00am Complies with drug therapysertraline 100 mg oral tablet (20 sources)Serotonin Reuptake InhibitorStart: 12-02-2023 End: 65-06-2062pfal 1 tablet by mouth once dailySertraline 100 mg tablet Active 100 MG PO Daily January 05, 2024 11:00pm Complies with drug therapyStart: 09-29-2023 End: 67-76-5121bdtt 1 tablet by mouth once dailySertraline 50 mg tablet Discontinued 50 MG PO Daily September 28, 2023 11:00pm January 06, 2024 3:34pm sevelamer carbonate 800 mg oral tablet (20 sources)Phosphate BinderStart: 02-01-2025 End: 02-61-1101twcw 2 tablets by mouth three times dailySevelamer Carbonate 800 mg tablet Active 1600 MG PO Three times daily 90 5 March 29, 2025 3:18pm Complies with drug therapyStart: 01-19-2025 End: 83-62-8629fedj 1 tablet by mouth three times dailySevelamer Carbonate 800 mg tablet Discontinued 800 MG PO Three times daily January 19, 2025 2:21pm February 01, 2025 7:19amStart: 01-06-2024 End: 39-31-1552dhlp 2 tablets by mouth three times dailySevelamer Carbonate 800 mg tablet Discontinued 1600 MG PO Three times daily January 05, 2024 11:00pm January 19, 2025 2:22pmStart: 17-76-7500swig 1600 mg by mouth three times daily Sevelamer Carbonate Active 1600 MG PO Three times daily January 06, 2024 12:00amStart: 69-58-7307ctjdkvpqn (RENVELA) 800 mg tablet Take 1 tablet (800 mg total) by mouth in the morning and 1 tablet(800 mg total) at noon and 1 tablet (800 mg total) in the evening. Take with meals. 12/02/2023 ActiveStart: 66-73-5083dozbrfwkn carbonate (Renvela) 800 MG tablet Indications: Hyperphosphatemia (CMS/HCC) , CKD stage 3a, GFR 45-59 ml/min (CMS/HCC) Take 2 tablets (1,600 mg) by mouth in the morning and 2 tablets (1,600 mg) at noon and 2 tablets (1,600 mg) in the evening. Take with meals. 180 tablet 5 12/02/2023 ActiveStart: 09-29-2023 End: 30-10-1239ogli 2 tablets by mouth three times daily at mealtimeSevelamer Hcl 800 mg tablet Discontinued 1600 MG PO Three times daily September 28, 2023 11:00pm January 06, 2024 3:32pm must administer with a meal/foodStart: 09-29-2023 End: 49-74-1780zlpi 1600 mg by mouth three times daily at mealtimeSevelamer Hcl Discontinued 1600 MG PO Three times daily September 29, 2023 12:00am January 06, 2024 4:32pm must administer with a meal/foodtraMADol hydrochloride 50 mg oral tablet (20 sources)Opioid AgonistStart: 07-29-2024 End: 50-60-3497nunt 1 tablet by mouth four times daily as neededTramadol 50 mg tablet Active 50 MG PO Four times daily as needed July 29, 2024 12:00am Complies with drug therapyStart: 05-13-2024 End: 17-23-7047iveb 1 tablet by mouth four times daily as needed for pain traMADol (Ultram) 50 MG tablet Indications: Diabetic polyneuropathy associated with type 2 diabetesmellitus (CMS/HCC) Take 1 tablet (50 mg) by mouth 4 (four) times a day as needed for moderate pain or severe pain 120 tablet 05/13/2024 06/12/2024 ActiveStart: 01-13-2024 End: 08-68-2295izho 1 tablet by mouth four times daily as needed for pain traMADol (Ultram) 50 MG tablet Indications: Other intervertebral disc degeneration, lumbar region Take 1 tablet (50 mg) by mouth 4 (four) times a day as needed for moderate pain or severe pain 120 tablet 01/13/2024 02/12/2024 ActiveStart: 09-29-2023 End: 25-75-4443ugvh 1 tablet by mouth once daily as neededTramadol 50 mg tablet Discontinued 50 MG PO Daily as needed September 28, 2023 11:00pm April 07, 2024 4:25pmStart: 01-13-2023 End: 98-46-4966Tksclgdn 50 mg tablet Discontinued 50 MG PO EVERY 6-12 HOURS as needed for Pain January 12, 2023 11:00pm July 23, 2023 12:10pmStart: 01-13-2023 End: 12-97-8058dtpq 1 tablet by mouth once daily as neededtraMADol ER (ULTRAM- ER) 200 MG 24 hr tablet Take 1 tablet (200 mg total) by mouth daily as needed. A ctivetraZODone hydrochloride 100 mg oral tablet (20 sources)Serotonin Reuptake InhibitorStart: 42-36-7365jcwu 1 tablet by mouth once daily at bedtimeTrazodone 100 mg tablet Active 100 MG PO Daily at bedtime August 31, 2024 2:27pm Complies with drugtherapyStart: 06-09-2024 End: 44-26-5946Mwyydafby 100 mg tablet Discontinued 50 MG PO Daily at bedtime June 09, 2024 2:09pm August 2:28pmStart: 04-15-2024 End: 53-03-1221ufpy 1 tablet by mouth once daily at bedtimeTrazodone 100 mg tablet Discontinued 100 MG PO Daily at bedtime April 19, 2024 12:00am 2024 2:09pmStart: 09-29-2023 End: 75-64-9716oqxh 1 tablet by mouth once daily at bedtimeTrazodone 50 mg tablet Discontinued 50 MG PO Daily at bedtime September 28, 2023 11:00pm April 19, 2024 3:48pmVitamin D 125 MCG (5000 UT) (20 sources)take 1 tablet by mouth once dailyVitamin D 125 MCG (5000 UT) 1 tablet Orally Daily ActiveVitamin D3 (3 sources)Vitamin D3 Active Completed/Discontinued Medications MedicationDrug Class(es)DatesSig (Normalized)Sig (Original)acetaminophen 32 mg/ml oral suspension (20 sources)Start: 08-23-2023 End: 30-96-8919Ylzbtsralxrgi 650 mg/20.3 mL Suspension Discontinued 650 MG NG- TUBE Q6H as needed for Fever Or Pain0 0 August 22, 2023 11:00pm September 29, 2023 1:15pmStart: 08-23-2023 End: 85-76-2355Glpwj: 07-26-2023 End: 22-67-3779pxsq 2 capsules by mouth every four to six hours as needed for painAcetaminophen 325 mg capsule Discontinued 650 MG PO EVERY 4-6 HOURS as needed for pain 30 July 26, 2023 12:00am August 23, 2023 11:55amStart: 07-26-2023 End: 69-80-2488omxm 650 mg by mouth every four to six hoursAcetaminophen Discontinued 650 MG PO EVERY 4-6 HOURS July 26, 2023 1:00am August 23, 2023 12:55pmStart: 07-26-2023 End: 81-72-7053ary763516 200 actuat albuterol 0.09 mg/actuat metered dose inhaler (16 sources)beta2-Adrenergic AgonistStart: 08-23-2023 End: 18-44-2243ucwd 1 puff(s) by inhalation every six hoursAlbuterol Sulfate 90 mcg/actuation Hfa Aerosol Inhaler Discontinued 6 PUFF VENT Every 6 hours [address] [facility] 2023 11:00pm September 29, 2023 1:31pmStart: 08-23-2023 End: 00-27-8680gkznnamkymu 875 mg / clavulanate 125 mg oral tablet (16 sources)Penicillin-class AntibacterialStart: 07-25-2023 End: 72-32-4324tisr 1 tablet by mouth every twelve hoursAmoxicillin-Pot Clavulanate 875-125 mg tablet Discontinued 1 TAB PO Every 12 hours 28 0 July 25, 2023 12:00am August 01, 2023 7:51amStart: 07-25-2023 End: 30-39-4860wubtlmbmfcpt 40 mg oral tablet (20 sources)HMG-CoA Reductase InhibitorStart: 07-07-2019 End: 08-41-1492tujy 1 tablet by mouth once daily at bedtimeAtorvastatin 40 mg tablet Discontinued 40 MG PO Daily at bedtime June 09, 2024 2:02pm February 14, 2025 4:05pmtake 1 tablet by mouth once daily at bedtimebaclofen 10 mg oral tablet (20 sources)gamma-Aminobutyric Acid-ergic AgonistStart: 07-26-2023 End: 17-16-9384kmtg 1 tablet by mouth twice daily as neededBaclofen 10 mg tablet Discontinued 10 MG PO Twice daily as needed for muscle spams 10 0 July 25, 2 024 11:26am August 23, 2023 11:55amStart: 05-04-5733Rrkwsozc Active MG TABLET January 13, 2023 12:00amStart: 10-03-2022 End: 22-09-5573uugp 1 tablet by mouth three times daily as needed for muscle spasmsBaclofen 20 mg tablet Discontinued 20 MG PO Three times daily as needed for muscle spasm January 12, 2023 11:00pm July 23, 2023 12:10pmStart: 79-50-8513mhfk 1 tablet by mouth in the morning, then take 1 tablet by mouth in the evening, then take 1 tablet by mouth at bedtimebaclofen (Lioresal) 20 MG tablet Take 20 mg by mouth in the morning and 20 mg in the evening and 20mg before bedtime. 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 Use to monitor BG change every 15 daysStart: 11-16-2024 End: 96-45-2528Hofai-Glucose Sensor (Freestyle Armando 2 Plus Sensor) device Discontinued 0 .Route 6 3 November 16, 2024 12:00am January 13, 2025 3:44pm Type 2 diabetes mellitus Type 2 diabetes mellitus with diabetic neuropathy, unspecified 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 Use to monitor BG change every 15 daysStart: 11-16-2024 End: 12-55-7058Nompd-Glucose Sensor (Freestyle Armando 2 Plus Sensor) device Discontinued 0 .Route 6 November 162:00am January 13, 2025 3:44pm Use to monitor BG change every 15 daysbumetanide 2 mg oral tablet (20 sources)Loop DiureticStart: 10-29-2023 End: 15-30-2287xnwz 1 tablet by mouth once dailyBumetanide 2 mg tablet Discontinued 2 MG PO Daily November 03, 2023 11:00pm December 10, 2023 10:29am cefepime 2000 mg injection (20 sources)Cephalosporin AntibacterialStart: 03-03-2023 End: 37-21-2941gehg 2 g intravenously every twelve hoursCefepime 2 gram Recon Soln Discontinued 2 GM IV Q12H 70 35 0 March 02, 2023 11:00pm July 16, 2023 9:46amCefepime HCl 2 GM as directed Intravenous Activecelecoxib 200 mg oral capsule (20 sources)Nonsteroidal Anti-inflammatory DrugStart: 07-07-2019 End: 43-13-4245awlc 1 capsule by mouth once dailyCelecoxib 200 mg capsule Discontinued 200 MG PO Daily January 12, 2023 11:00pm July 23, 2023 12:10pmtake 1 capsule by mouth every twelve hoursCeleBREX 200 MG 1 capsule with food Orally bid Activetake 1 capsule by mouth every twenty-four hoursCeleBREX 100 MG 1 capsule with food Orally Once a day Activeclopidogrel 75 mg oral tablet (20 sources)P2Y12 Platelet InhibitorStart: 08-23-2023 End: 75-05-3867Fickibilpev 75 mg Tablet Discontinued 75 MG NG-TUBE Daily 0 August 22, 2023 11:00pm October 21, 2023 12:17pmStart: 01-13-2023 End: 24-09-3518ldet 1 tablet by mouth once dailyClopidogrel 75 mg tablet Active 75 MG PO Daily October 21, 2023 12:12pm Complies with drug therapydapagliflozin 10 mg oral tablet (20 sources)Sodium-Glucose Cotransporter 2 InhibitorStart: 01-05-2024 End: 34-49-7737dgjs 1 tablet by mouth once dailyDapagliflozin Propanediol (Farxiga) 10 mg tablet Discontinued 10 MG PO Daily January 06, 2024 3:28pm April 07, 2024 4:24pm Congestive heart failure Type 2 diabetes mellitus Heart failure, unspecified Type 2 diabetes mellitus without complications has not started this yet.diclofenac sodium 0.01 mg/mg topical gel (16 sources)Nonsteroidal Anti-inflammatory DrugStart: 08-23-2023 End: 34-85-1939bytzf 4 g topically four times dailyDiclofenac Sodium 1 % Gel Discontinued 4 GM TOPICAL Four times daily 0 August 22, 2023 11:00pm September 29, 2023 1:31pmStart: 08-23-2023 End: 28-21-1255xtgix 4 g topically four times dailyDiclofenac Sodium Discontinued 4 GM TOPICAL Four times daily 0 August 23, 2023 12:00am September 29, 2023 2:31pmdocusate sodium 50 mg / sennosides, shelter 8.6 mg oral tablet (16 sources)Start: 07-23-2023 End: 29-63-4205hnls 2 tablets by mouth twice dailySennosides-Docusate Sodium 8.6-50 mg Tablet Discontinued 2 TAB PO Twice daily 10 July 23, 2023 12:00am August 23, 2023 11:55amStart: 07-23-2023 End: 55-28-8489WSMvyfuckh 60 mg delayed release oral capsule (20 sources)Serotonin and Norepinephrine Reuptake InhibitorStart: 01-13-2023 Duloxetine Active MG PO January 13, 2023 12:00amStart: 07-07-2019 End: 01-17-3263cyee 1 capsule by mouth once dailyDuloxetine 60 mg capsule,delayed release(DR/EC) Discontinued 60 MG PO Daily January 12, 2023 11:00pm September 29, 2023 1:31pm On Hold: renal failureDULoxetine HCl Active ergocalciferol 1.25 mg oral capsule (16 sources)Provitamin D2 Compound End: 40-26-4350bklm 1 capsule by mouth every weekergocalciferol (Vitamin D-2) 1.25 MG (68654 UT) capsule Take 1.25 mg by mouth 1 (one) time per week04/15/2024 Discontinuedergocalciferol (DRISDOL) 1,250 mcg (50,000 unit) capsule Take 1 capsule (50,000 Units total) by mouth. Activefamotidine 20 mg oral tablet (20 sources)Histamine-2 Receptor AntagonistStart: 09-29-2023 End: 82-47-7644zbgn 1 tablet by mouth twice dailyFamotidine 20 mg tablet Discontinued 20 MG PO Twice daily September 28, 2023 11:00pm April 07, 2024 4:24pmfamotidine (Pepcid) 40 MG tablet 40 mg in the morning and 40 mg before bedtime. Activeflash glucose scanning reader (FreeStyle Armando 2 [place]) (13 sources)Start: 09-29-2023 End: 63-50-8152apeee glucose scanning reader (FreeStyle Armando 2 [place]) Discontinued .Route September 29, 2023 12:00am April 19, 2024 4:49pmStart: 09-29-2023 End: 43-32-1649veusv glucose scanning reader (FreeStyle Armando 2 [place]) Discontinued .Route September 28, 2023 11:00pm April 19, 2024 3:49pmStart: 61-06-3286dtzab glucose scanning reader (FreeStyle Armando 2 [place]) Active .Route September 28, 2023 11:00pmStart: 46-35-2926ndrwc glucose scanning reader (FreeStyle Armando 2 [place]) Active .Route September 29, 2023 12:00amFlash Glucose Scanning [place] (Freestyle Armando 2 [place]) misc (12 sources)Start: 01-05-2024 End: 46-40-1329Jlixo Glucose Scanning [place] (Freestyle Armando 2 [place]) misc Discontinued 0 .ROUTE .MEDSUPPLY 1 0 January 04, 2024 11:00pm January 13, 2025 2:45pm Type 2 diabetes mellitus Type 2 diabetes mellituswith diabetic neuropathy, unspecified shelter (current) use of insulin As directedStart: 01-05-2024 End: 53-85-0074Fzjmw Glucose Scanning [place] (Freestyle Armando 2 [place]) misc Discontinued 0 .ROUTE .MEDSUPPLY 1 0 January 05, 2024 12:00am January 13, 2025 3:45pm Type 2 diabetes mellitus Type 2 diabetes mellituswith diabetic neuropathy, unspecified shelter (current) use of insulin As directedStart: 01-05-2024 End: 64-33-6305Ttwfl Glucose Scanning [place] (Freestyle Armando 2 [place]) misc Discontinued 0 .ROUTE .MEDSUPPLY 1 January 05, 2024 12:00am January 13, 2025 3:45pm As directedStart: 92-93-4689Gijct Glucose Scanning [place] (Freestyle Armando 2 [place]) misc Active 0 .ROUTE .MEDSUPPLY 1 January 04, 2024 11:00pm As directedStart: 95-61-5020Qyziv Glucose Scanning [place] (Freestyle Armando 2 [place]) misc Active 0 .ROUTE .MEDSUPPLY 1 January 05, 2024 12:00am As directed flash glucose sensor (FreeStyle Armando 2 Sensor) (13 sources)Start: 09-29-2023 End: 32-27-8478ddyrq glucose sensor (FreeStyle Armando 2 Sensor) Discontinued .Route September 28, 2023 11:00pm November 9:13amStart: 09-29-2023 End: 64-12-3400oskho glucose sensor (FreeStyle Armando 2 Sensor) Discontinued .Route September 29, 2023 12:00am November 10:13amStart: 40-67-3932hsvjz glucose sensor (FreeStyle Armando 2 Sensor) Active .Route September 29, 2023 12:00amFlash Glucose Sensor (Freestyle Armando 2 Sensor) kit (20 sources)Start: 12-02-2023 End: 79-23-7379Gxdqi Glucose Sensor (Freestyle Armando 2 Sensor) kit Discontinued 0 .ROUTE .COMPLEX 6 December 02, 2023 9:13am November 16, 2024 10:47am USE DIRECTED change EVERY 14 daysStart: 12-02-2023 End: 75-22-9616Uwuqp Glucose Sensor (Freestyle Armando 2 Sensor) kit Discontinued 0 .ROUTE .COMPLEX 6 December 02, 2023 10:13am November 16, 2024 11:47am USE DIRECTED change EVERY 14 daysStart: 12-02-2023 End: 09-12-3898Ybseb Glucose Sensor (Freestyle Armando 2 Sensor) kit Discontinued 0 .ROUTE .COMPLEX December 010:13am November 16, 2024 11:47am USE DIRECTED change EVERY 14 daysStart: 32-49-2960Xeogr Glucose Sensor (Freestyle Armando 2 Sensor) kit Active 0 .ROUTE .COMPLEX December 02, 2023 9:13am USE DIRECTED change EVERY 14 daysStart: 86-00-9534Umqwc Glucose Sensor (Freestyle Armando 2 Sensor) kit Active 0 .ROUTE .COMPLEX December 02, 2023 10:13am USE DIRECTED change EVERY 14 daysStart: 01-13-2023 End: 43-48-8882Foybl Glucose Sensor (Freestyle Armando 2 Sensor) kit Discontinued EACH MISCELLANE January 12, 2023 11:00pm September 29, 2023 1:31pmStart: 01-13-2023 End: 53-84-7493Aldsq Glucose Sensor (Freestyle Armando 2 Sensor) kit Discontinued EACH MISCELLANE January 13, 2023 12:00am September 29, 2023 2:31pmStart: 01-13-2023 Flash Glucose Sensor (Freestyle Armando 2 Sensor) kit Active EACH MISCELLANE January 12, 2023 11:00pmStart: 36-74-5648Rrixo Glucose Sensor (Freestyle Armando 2 Sensor) kit Active EACH MISCELLANE January 13, 2023 12:00amFreeStyle InsuLinx Test - (12 sources)FreeStyle InsuLinx Test - Use Test Strip to test BLOOD SUGAR DIRECTED BEFORE MEALS & AT BEDTIME NEEDED for 90 Not-TakingFreeStyle Armando 14 Day [place] - (12 sources)Start: 58-59-8199KxfiSsvbm Armando 14 Day [place] - use with 14 day sensors SQ Daily for 365 days September, Not-TakingStart: 75-97-0680GldrSbptg Armando 14 Day [place] - use with 14 day sensors SQ Daily for 365 days September, ActiveFreeStyle Armando 14 Day Sensor - (12 sources)Start: 59-81-5455AfoqZcslh Armando 14 Day Sensor - use with 14 day reader SQ change every 14 days for 84 day(s) E11.4015Sep, 2018 Not-TakingStart: 26-53-2113ExikKmfms Armando 14 Day Sensor - use with 14 day reader SQ change every 14 days for 84 day(s) E11.6 Sep, 2018 Activefurosemide 40 mg oral tablet (20 sources)Loop DiureticStart: 10-21-2023 End: 50-19-6827btpx 2 tablets by mouth twice dailyFurosemide (Lasix) 40 mg tablet Discontinued 80 MG PO Twice daily 60 3 October 21, 2023 12:38pm November 04, 2023 2:41pmStart: 10-09-2023 End: 00-49-2982zzws 1 tablet by mouth twice dailyFurosemide (Lasix) 40 mg tablet Discontinued 40 MG PO Twice daily 60 0 October 09, 2023 12:46pm October 21, 2023 12:41pmStart: 07-23-2023 End: 47-88-7171cxil 1 tablet by mouth twice dailyFurosemide 80 mg Tablet Discontinued 80 MG PO BID@0800,1600 60 30 0 July 23, 2023 12:00am August 23, 2023 11:55amGemfibrozil (12 sources)Peroxisome Proliferator Receptor alpha Agonisttake 1 tablet by mouth twice dailyGemfibrozil 600 1 tablet Orally Twice a day for 30 day(s) Activetake 1 tablet by mouth twice dailyGemfibrozil 600 1 tablet Orally Twice a day for 30 day(s) Not-TakinghydrOXYzine hydrochloride 25 mg oral tablet (20 sources)AntihistamineStart: 12-02-2023 End: 91-32-5329wdmi 1 tablet by mouth four times daily as neededHydroxyzine Hcl 25 mg tablet Discontinued 25 MG PO Four times daily as needed January 05, 2024 11:00pm April 07, 2024 4:24pmInsulin Aspart U-100 (Novolog Flexpen U-100 Insulin) 100 unit/mL (3 mL) Insulin Pen (8 sources)Start: 08-23-2023 End: 39-10-0086Hvaiexw Aspart U-100 (Novolog Flexpen U-100 Insulin) 100 unit/mL (3 mL) Insulin Pen Discontinued 0 UNIT SUBCUT Every 6 hours 0 August 23, 2023 12:00am September 29, 2023 2:31pm Please contact the information source for Protocol details.Start: 08-23-2023 End: 09-75-3053Avibzuu Aspart U-100 (Novolog Flexpen U-100 Insulin) 100 unit/mL (3 mL) Insulin Pen Discontinued 0 UNIT SUBCUT Every 6 hours 0 August 22, 2023 11:00pm September 29, 2023 1:31pm Please contact the information source for Protocol details.Start: 08-23-2023 End: 93-42-6014Fjayyun Aspart U-100 (Novolog Flexpen U-100 Insulin) 100 unit/mL (3 mL) Insulin Pen Discontinued 0 UNIT SUBCUT Every 6 hours 0 August 23, 2023 12:00am September 29, 2023 2:31pmInsulin Aspart U-100 (Novolog Flexpen U-100 Insulin) 100 unit/mL (3 mL) insulin pen (16 sources)Start: 09-29-2023 End: 68-95-7523Tutuohg Aspart U-100 (Novolog Flexpen U-100 Insulin) 100 unit/mL (3 mL) insulin pen Discontinued 0 UNIT SUBCUT Every 6 hours September 29, 2023 2:36pm September 29, 2023 2:38pm 10-15-20-25 units ac according to meal size tid plus ISS 1:15 ac (hs if >200 half dose) Please contact the information source forProtocol details.Start: 09-29-2023 End: 35-00-2754Xnkuuyw Aspart U-100 (Novolog Flexpen U-100 Insulin) 100 unit/mL (3 mL) insulin pen Discontinued 0 UNIT SUBCUT Every 6 hours September 29, 2023 1:36pm September 29, 2023 1:38pm 10-15-20-25 units ac according to meal size tid plus ISS 1:15 ac (hs if >200 half dose) Please contact the information source forProtocol details.Start: 09-29-2023 End: 60-55-0539Bmkcyod Aspart U-100 (Novolog Flexpen U-100 Insulin) 100 unit/mL (3 mL) insulin pen Discontinued 0 UNIT SUBCUT Every 6 hours September 29, 2023 2:36pm September 29, 2023 2:38pm 10-15-20-25 units ac according to meal size tid plus ISS 1:15 ac (hs if >200 half dose)Start: 09-29-2023 End: 52-00-3581Kwhwbhv Aspart U-100 (Novolog Flexpen U-100 Insulin) 100 unit/mL (3 mL) insulin pen Discontinued 0 UNIT SUBCUT Every 6 hours September 29, 2023 2:26pm September 29, 2023 2:38pm per sliding scale Please contactthe information source for Protocol details.Start: 09-29-2023 End: 99-65-3010Nhubcbk Aspart U-100 (Novolog Flexpen U-100 Insulin) 100 unit/mL (3 mL) insulin pen Discontinued 0 UNIT SUBCUT Every 6 hours September 29, 2023 1:26pm September 29, 2023 1:38pm per sliding scale Please contactthe information source for Protocol details.Start: 09-29-2023 End: 60-44-6395Bhrqoxc Aspart U-100 (Novolog Flexpen U-100 Insulin) 100 unit/mL (3 mL) insulin pen Discontinued 0 UNIT SUBCUT Every 6 hours September 29, 2023 2:26pm September 29, 2023 2:38pm per sliding scale3 ml insulin aspart, human 100 unt/ml pen injector (15 sources)Insulin AnalogStart: 08-23-2023 End: 38-61-1220Duveklk Aspart U-100 (Novolog Flexpen U-100 Insulin) 100 unit/mL (3 mL) insulin pen Discontinued 0 UNIT SUBCUT Every 6 hours Protocol: *If the corrective scale dose has been administered within the past 4 hours, do not use corrective scale again unless approved by prescriber* Condition: Corrective S edna #4 (TDI 76-100 UNITS) Condition: Dose/Route: Instructions: Condition: Fingerstick Blood Glucose Dose/Route: Insulin Units Condition: 150-199 mg/dl Dose/Route: 3 unit Condition: 200-249 mg/dl Dose/Route: 4 unit Condition: 250- 299 mg/dl Dose/Route: 8 unit Condition: 300-349 mg/dl Dose/Route: 12 unit Condition: 350-399 mg/dl Dose/Route: 14 unit Condition: greater than or = 400 mg/dl Dose/Route: 16 unit Instructions: Call Provider September 29, 2023 1:36pm September 29, 2023 1:38pm 10-15-20-25 units ac according to meal size tid plus ISS 1:15 ac (hs if >200 half dose) Please contact the information source for Protocol details.3 ml insulin lispro 100 unt/ml pen injector (20 sources)Insulin AnalogStart: 01-05-2024 End: 87-27-4667Ylmrdlw Lispro (Humalog Kwikpen Insulin) 100 unit/mL insulin pen Discontinued 0 SUBCUT Use as Directed January 05, 2024 2:04pm April 19, 2024 4:04pm subcutaneously use as directed; 10-15-20-25 units ac according to meal size tid plus ISS 1:15 ac (hs if >200 half dose), SQ, as directed, Notes: expect up to 60 units/dayStart: 09-29-2023 End: 83-61-3293Grjocdi Lispro (Humalog Kwikpen Insulin) 100 unit/mL insulin pen Discontinued 0 SUBCUT Use as Directed September 28, 2023 11:00pm October 21, 2023 12:15pm subcutaneously use as directed; 10-15-20-25 units ac according to meal size tid plus ISS 1:15 ac (hs if >200 half dose)Start: 02-23-2023 End: 49-86-0745Pljknmo Lispro (Humalog Kwikpen Insulin) 100 unit/mL Insulin Pen Discontinued 0 .ROUTE .COMPLEX Protocol: If the corrective scale dose has been administered within the past 4 hours, do not use corrective scale again unless otherwise directed Condition: 150-199 mg/dL Dose/Route: 1 unit Condition: 200- 249 mg/dL Dose/Route: 2 unit Condition: 250-299 mg/dL Dose/Route: 3 unit Condition: 300-349 mg/dL Dose/Route: 4 unit Condition: 350-399 mg/dL Dose/Route: 5 unit Condition: greater than or = 400 mg/dL Dose/Route: 6 unit February 22, 2023 11:00pm August 23, 2023 11:55am SSC Please contact the information source for Protocol details.insulin lispro (HumaLOG) 100 unit/mL injection Inject under the skin in the morning and at noon andin the evening. Inject before meals. Sliding scale based on blood sugar. Activeinsulin lispro (HumaLOG) 100 unit/mL injection Inject under the skin 3 (three) times a day before meals. Sliding scale based on blood sugar ActiveHumaLOG KwikPen 100 UNIT/ML 10-15-20-25 units ac according to meal size tid plus ISS 1:15 ac (hs if>200 half dose) SQ as directed expect up to 60 units/day ActiveHumaLOG KwikPen 100 UNIT/ML 10-15-20 ac according to meal size tid plus ISS 1:15 ac (hs if >200 half dose) SQ as directed expect up to 100 units/day ActiveInsulin Lispro (Humalog Kwikpen Insulin) 100 unit/mL Insulin Pen (16 sources)Start: 02-23-2023 End: 56-50-7552Xkdqgrl Lispro (Humalog Kwikpen Insulin) 100 unit/mL Insulin Pen Discontinued 0 .ROUTE .COMPLEX February 23, 2023 12:00am August 23, 2023 12:55pm SSC Please contact the information source for Protocol details.Start: 02-23-2023 End: 95-23-0493Aibvoml Lispro (Humalog Kwikpen Insulin) 100 unit/mL Insulin Pen Discontinued 0 .ROUTE .COMPLEX February 22, 2023 11:00pm August 23, 2023 11:55am SSC Please contact the information source for Protocol details.Start: 02-23-2023 End: 69-84-7848Lqxdcny Lispro (Humalog Kwikpen Insulin) 100 unit/mL Insulin Pen Discontinued 0 .ROUTE .COMPLEX February 23, 2023 12:00am August 23, 2023 12:55pm SSCStart: 27-24-3656Ulueype Lispro (Humalog Kwikpen Insulin) 100 unit/mL Insulin Pen Active 0 .ROUTE .COMPLEX 2022 11:00pm SSCStart: 73-51-9354Nmnptdn Lispro (Humalog Kwikpen Insulin) 100 unit/mL Insulin Pen Active 0 .ROUTE .COMPLEX February 23, 2023 12:00am SSCipratropium bromide 0.042 mg/actuat metered dose nasal spray (19 sources)AnticholinergicStart: 04-19-2024 End: 71-99-2098Zpdybxqngoh [place] 42 mcg (0.06 %) spray,non-aerosol Discontinued INTRANASAL as needed June 09, 2024 2:07pm January 13, 2025 2:44pmStart: 33-83-1773ykst 2 spray(s) nasal route three times daily as needed ipratropium (ATROVENT) 42 mcg (0.06 %) nasal spray instill 2 (TWO) sprays IN EACH NOSTRIL THREE TIMES DAILY NEEDED for runny nose 01/14/2024 Active lansoprazole 30 mg disintegrating oral tablet (20 sources)Proton Pump InhibitorStart: 08-23-2023 End: 49-37-2382jaog 1 tablet by mouth once dailyLansoprazole 30 mg tablet,disintegrat, delay rel Discontinued 30 MG PO Daily September 29, 2023 1:25pm October 21, 2023 12:15pmmagnesium oxide 400 mg oral tablet (20 sources)Start: 03-04-2023 End: 63-27-8024umfa 1 tablet by mouth once dailyMagnesium Oxide 400 mg (241.3 mg magnesium) Tablet Discontinued 400 MG PO Daily March 03, 2023 11:00pm July 10, 2023 9:48pmMedical Marijuana / Cannabinoid Product as documented (12 sources)Medical Marijuana / Cannabinoid Product as documented as documented as documented as documented ActiveMedical Marijuana / Cannabinoid Product as documented as documented as documented as documented Not-Takingmelatonin 5 mg oral capsule (20 sources)Start: 01-06-2024 End: 26-75-4574puze 1 capsule by mouth once daily at bedtimeMelatonin 5 mg capsule Discontinued 5 MG PO Daily at bedtime January 05, 2024 11:00pm April 07, 2024 4:24pmStart: 09-29-2023 End: 89-14-8410qckt 2 capsules by mouth once daily at bedtime as neededMelatonin 3 mg capsule Discontinued 6 MG PO Daily at bedtime as needed September 28, 2023 11:00pm 2023 3:29pmStart: 09-29-2023 End: 82-59-8193qdfz 6 mg by mouth once daily at bedtimeMelatonin Discontinued 6 MG PO Daily at bedtime September 29, 2023 12:00am January 06, 2024 4:29pmStart: 08-76-3829lkdr 6 mg by mouth once daily at bedtimeMelatonin Active 6 MG PO Daily at bedtime September 29, 2023 12:00amStart: 09-18-2023 End: 86-93-4767htwz 2 tablets by mouth at bedtimemelatonin 3 MG tablet Take 6 mg by mouth at bedtime 09/18/2023 ActiveNIFEdipine 30 mg osmotic 24 hr extended release oral tablet (20 sources)Dihydropyridine Calcium Channel BlockerStart: 03-04-2023 End: 21-87-4653xwru 1 tablet by mouth once dailyNifedipine 30 mg Tablet Extended Release 24hr Discontinued 30 MG PO Daily 30 0 March 03, 2023 11:00pm July 23, 2023 12:10pmStart: 03-04-2023 End: 90-21-1557ulrp 1 tablet by mouth every twenty-four hoursNIFEdipine ER 30 MG 1 tablet on an empty stomach Orally Once a day Activeomega-3 acid ethyl esters (shelter) 1000 mg oral capsule (12 sources)Start: 41-52-5811kscm 2 capsules by mouth every twelve hoursLovaza 1 GM 2 capsules Orally Twice a day for 30 day(s) Jul, Not-Taking omeprazole 20 mg delayed release oral capsule (20 sources)Proton Pump InhibitorStart: 07-10-2023 End: 93-08-9676llfi 1 capsule by mouth once daily in the morningOmeprazole 20 mg capsule,delayed release(DR/EC) Discontinued 20 MG PO Every morning July 10, 2023 12:00am July 26, 2023 11:23am Medication Name: Omeprazole; Note: Source Status: Taking; Provider: Ashleigh Gil ( )Omeprazole Activeondansetron 4 mg disintegrating oral tablet (16 sources)Serotonin-3 Receptor AntagonistStart: 07-26-2023 End: 33-89-3390lmnh 4-8 mg by mouth every six hours as needed for nausea Ondansetron 4 mg tablet,disintegrating Discontinued 4 - 8 MG PO Every 6 hours as needed for nausea with dialysis 10 0 July 26, 2023 11:43am August 23, 2023 11:55amoxyCODONE hydrochloride 5 mg oral tablet (16 sources)Opioid AgonistStart: 07-23-2023 End: 49-48-9343vspv 2 tablets by mouth every four hours as needed for pain Oxycodone 5 mg Tablet Discontinued 10 MG PO Q4H as needed for Pain Scale 4 - 7 10 3 0 July 23, 2023 August 23, 2023 11:55am Gangrene of left foot Gangrene, not elsewhere classifiedStart: 07-23-2023 End: 23-45-9382smzx 10 mg by mouth every four hoursOxycodone Discontinued 10 MG PO Q4H 10 3 July 23, 2023 August 23, 2023 12:55pmpantoprazole 40 mg delayed release oral tablet (16 sources)Proton Pump InhibitorStart: 07-26-2023 End: 42-14-9154pfgc 1 tablet by mouth once daily in the morningPantoprazole 40 mg Tablet,Delayed Release (Dr/Ec) Discontinued 40 MG PO Every morning 0 30 July 26, 2023 12:00am August 23, 2023 11:55ampatiromer 8400 mg powder for oral suspension (10 sources)Potassium BinderStart: 04-07-2024 End: 82-22-9872Dwqoedgpv Calcium Sorbitex (Veltassa) 8.4 gram powder in packet Discontinued 8.4 GM PO Daily 4 0 April 07, 2024 12:00am April 19, 2024 3:47pmpen needle, diabetic (BD Ultra-Fine [place] Pen Needle) (13 sources)Start: 09-29-2023 End: 11-74-5572vfg needle, diabetic (BD Ultra-Fine [place] Pen Needle) Discontinued .Route September 28, 2023 11:00pm January 13, 2025 2:53pmStart: 09-29-2023 End: 34-71-2569ozy needle, diabetic (BD Ultra-Fine [place] Pen Needle) Discontinued .Route September 29, 2023 12:00am January 13, 2025 3:53pmStart: 72-78-1489bmg needle, diabetic (BD Ultra-Fine [place] Pen Needle) Active .Route September 28, 2023 11:00pmStart: 41-03-3201vzi needle, diabetic (BD Ultra-Fine [place]ee Pen Needle) Active .Route September 29, 2023 12:00ampolyethylene glycol 3350 27589 mg powder for oral solution (16 sources)Osmotic LaxativeStart: 07-26-2023 End: 91-79-0939Edwcorioccab Glycol 3350 (Healthylax) 17 gram Powder In Packet Discontinued 17 GM PO Daily as needed for Constipation 0 0 July 26, 2023 12:00am August 23, 2023 11:55amQUEtiapine 100 mg oral tablet (20 sources)Atypical AntipsychoticStart: 12-02-2023 End: 40-83-9605yjtq 1 tablet by mouth once daily at bedtimeQuetiapine 100 mg tablet Discontinued 100 MG PO Daily at bedtime January 04, 2024 11:00pm 2023 4:24pmStart: 09-29-2023 End: 84-93-2955fjgf 1 tablet by mouth twice dailyQuetiapine 25 mg tablet Discontinued 25 MG PO Twice daily September 28, 2023 11:00pm January 06, 2024 3:32pm 0.25 mg, 0.5 mg dose 1.5 ml semaglutide 1.34 mg/ml pen injector (12 sources)Start: 96-65-0001Tmhaucg (0.25 or 0.5 MG/DOSE) 2 MG/1.5ML 0.5mg Subcutaneous once weekly for 84 days Oct, Not-Takingspironolactone 50 mg oral tablet (20 sources)Aldosterone AntagonistStart: 10-29-2023 End: 94-86-3866dmak 1 tablet by mouth once dailySpironolactone 50 mg tablet Discontinued 50 MG PO Daily November 03, 2023 11:00pm April 0744:39pm (20 sources)Start: 09-29-2023 End: 12-71-8250Ceyvy: 09-29-2023 End: 08-45-1894Kmtcb: 09-29-2023 End: 18-92-2666Eknbz: 86-51-4122Orllp: 08-23-2023 End: 25-11-9976Efnju: 84-00-1245Oeqgr: 02-23-2023 End: 88-15-4729Osniy: 01-13-2023 End: 51-04-7529Idaqy: 01-13-2023 Problems Active Problems Problem ClassificationProblemDateDocumented DateEpisodic/ChronicAcquired foot deformities (2 sources)Acquired deformity of toe of right foot; Translations: [Acquired deformities of toe(s), unspecified, right foot]30-04-8647LonluvrjOysub and unspecified renal failure (20 sources)Acute renal failure syndrome; Translations: [Acute kidney failure, unspecified]Onset: 990205-95-4785FljgngymJgiqv cerebrovascular disease (4 sources)Ischemic stroke; Translations: [Cerebral infarction, unspecified] Onset: 506195-17-5417ArszhioZxhjn cerebrovascular disease (1 source)Acute cerebrovascular diseaseOnset: 23-22-8329Ljmetcdccdkytp/social admission (20 sources)Dietary counseling and surveillance; Translations: [Patient encounter status]Onset: 02-22-2021 Resolved: 45-57-8418IhjevwjlTcpljig disorders (20 sources)Generalized anxiety disorder; Translations: [Generalized anxiety disorder]Onset: 140175-13-2765CtttarsEmqfyvjij infection; unspecified site (16 sources)Bacterial infection due to Pseudomonas; Translations: [Other bacterial infections of unspecified site]07-51-3948VevbjhelFoxavd of prostate (10 sources)Malignant neoplasm of prostate; Translations: [Malignant tumor of prostate]Onset: 154300-01-6736RzecdjjAvlqbgsv (1 source)Presence of intraocular lens; Translations: [Presence of intraocular lens]Onset: 82-08-5487WpzrghbXfjnpwj kidney disease (20 sources)Anemia of renal disease; Translations: [Chronic kidney disease, unspecified]Onset: 12-02-2023 Resolved: 781476-52-4171BmnijtzPinetkv ulcer of skin (20 sources)Non-pressure chronic ulcer of other part of left foot with unspecified severity; Translations: [Non-pressure chronic ulcer of other part of left foot with bone involvement without evidence of necrosis]ChronicCongestive heart failure; nonhypertensive (20 sources)Congestive heart failure; Translations: [Heart failure, unspecified] Onset: 110633-59-9432SfyftgqSiiuihoohs and other anemia (18 sources)Anemia; Translations: [Anemia, unspecified]01-86-6938Ngvkqjeu Deficiency and other anemia (12 sources)Anemia, unspecified; Translations: [Anemia, unspecified]10-21-2023 EpisodicDeficiency and other anemia (2 sources)Iron deficiency anemia; Translations: [Iron deficiency anemia, unspecified]Onset: 015233-33-8662LklrscbxVzhvziex mellitus with complications (20 sources)Disorder of kidney due to diabetes mellitus; Translations: [Type 2 diabetes mellitus with other diabetic kidney complication]Onset: 02-22-2021 Resolved: 54-97-8949YypvxmoLhiymgdb mellitus without complication (20 sources)Type 2 diabetes mellitus; Translations: [Type 2 diabetes mellitus without complications]35-95-3836CvnmfriCsohfvcn of white blood cells (20 sources)Leukocytosis; Translations: [Elevated white blood cell count, unspecified]44-37-3461XivejbkYsfxnnzeq of lipid metabolism (20 sources)Hyperlipidemia; Translations: [Hyperlipidemia, unspecified]Onset: 02-22-2021 Resolved: 17-76-3024UafovgcQhufamwhkymvyb and diverticulitis (1 source)Diverticulosis of large intestine without perforation or abscess without bleeding; Translations: [DVRTCLOS LG INT NO PERF/ABSC W/O BL]Onset: 08-67-8491TxxjmzdShfnpxmnlp disorders (20 sources)Gastroesophageal reflux disease; Translations: [Gastro-esophageal reflux disease without esophagitis]Onset: 336656-84-7660PnlqbzlHchpuglrl hypertension (20 sources)Essential hypertension; Translations: [Essential (primary) hypertension]Onset: 01-06-2017 Resolved: 72-68-2041SkoyywkHwqrz and electrolyte disorders (20 sources)Hyponatremia; Translations: [Hypo-osmolality and hyponatremia]Onset: 855975-52-3181JcimbkmdObgswbrq (20 sources)Gangrene, not elsewhere classified; Translations: [Gangrene] 71-62-1397ZbhxmegaJpuuxlvqn arthritis and osteomyelitis (except that caused by tuberculosis or sexually transmitted disease) (20 sources)Acute osteomyelitis of ankle and/or foot; Translations: [Acute hematogenous osteomyelitis, left ankle and foot]Onset: 10-02-2023 Resolved: 521758-07-1707ScrwrvbWnuyfasxbtkyd mental health disorders (20 sources)Primary insomnia; Translations: [Primary insomnia]Onset: 12-02-2023 02-29-3480NxrneheZasy disorders (20 sources)Moderate recurrent major depression; Translations: [Major depressive disorder, recurrent, moderate]Onset: 316176-33-8807JokhjfcSzirljp (10 sources)Onychomycosis; Translations: [Tinea unguium]77-75-3497AlzuslyzGuqydw and vomiting (16 sources)Vomiting; Translations: [Vomiting, unspecified]81-87-5125Klhwkyeg Neoplasms of unspecified nature or uncertain behavior (20 sources)Thrombocytosis; Translations: [Thrombocythemia]Onset: 12-29-2023 69-26-2982PmokyydeUcblbhnhfij deficiencies (20 sources)Vitamin D deficiency; Translations: [Vitamin D deficiency, unspecified]Onset: 02-22-2021 Resolved: 88-68-5435HbvhfixOqgwxzupt or stenosis of precerebral arteries (20 sources)Occlusion and stenosis of right carotid artery; Translations: [Internal carotid artery stenosis]Onset: 687366-83-5940JnrytdeBypy wounds of extremities (1 source)Laceration without foreign body, unspecified foot, initial encounter EpisodicOsteoarthritis (2 sources)Osteoarthritis of joint of left shoulder region; Translations: [Primary osteoarthritis, left shoulder]65-10-3106LgapzxaPkozm aftercare (20 sources)Long-term current use of insulin; Translations: [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]EpisodicOther aftercare (8 sources)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; Translations: [shelter current use of insulin Z79.4]Onset: 02-22-2021 Resolved: 36-81-4644TkraefeqEjfoe and ill-defined cerebrovascular disease (6 sources)Cerebrovascular disease; Translations: [Cerebrovascular disease, unspecified]28-73-9611EwhdhekQqyiz and unspecified benign neoplasm (1 source)Benign neoplasm of meninges, unspecified; Translations: [Benign neoplasm of meninges, unspecified]Onset: 74-89-7923EllometVumev bone disease and musculoskeletal deformities (8 sources)History of amputation of left foot; Translations: [Acquired absence of left foot]64-06-3201HroqjmzWzdmd connective tissue disease (2 sources)Pain of toe of left foot; Translations: [Pain in left toe(s)] 08-77-0748KnhvxzaaUnkad connective tissue disease (10 sources)Pain of toe of right foot; Translations: [Pain in right toe(s)] 08-97-6184EruntbinZvybu connective tissue disease (1 source)Unspecified symptoms and signs involving the nervous system; Translations: [Unspecified symptoms and signs involving the nervous system] Onset: 34-84-5088HkftvtaxOuqzm connective tissue disease (2 sources)Neurological symptom; Translations: [Unspecified symptoms and signs involving the nervous system]Onset: 334597-73-5763DqshoykrIefvt eye disorders (1 source)Vitreous degeneration, bilateral; Translations: [Vitreous degeneration, bilateral]Onset: 39-92-8483BzjvzhkHdtlr eye disorders (1 source)Vitreous hemorrhage, right eye; Translations: [Vitreous hemorrhage of right eye]Onset: 67-83-2320VmknkooBseov eye disorders (1 source)Vitreous degeneration, left eye; Translations: [PVD (posterior vitreous detachment), left eye]Onset: 50-54-6308TnkidlyVfwcd eye disorders (2 sources)Hemorrhage of right vitreous body; Translations: [Vitreous hemorrhage, right eye]Onset: 806961-52-6995VqixmxiYhmto eye disorders (20 sources)Ophthalmoplegia; 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] Onset: 805064-36-8289WnzgdbegUiret gastrointestinal disorders (11 sources)Diarrhea; Translations: [Diarrhea, unspecified]90-84-5488Byrpxmol Other gastrointestinal disorders (5 sources)Diarrhea, unspecified; Translations: [Diarrhea]06-25-8544Scuwsykt Other gastrointestinal disorders (17 sources)Constipation; Translations: [Constipation, unspecified]07-15-2023 EpisodicOther gastrointestinal disorders (4 sources)Constipation, unspecified; Translations: [Constipation, unspecified] 70-95-3786RgctdyliApiko hereditary and degenerative nervous system conditions (20 sources)Myoclonus; Translations: [Myoclonus]Onset: 988745-03-5242 ChronicOther lower respiratory disease (16 sources)Acute pulmonary edema; Translations: [Acute pulmonary edema] 04-41-9484IshkugmrSvugr lower respiratory disease (4 sources)Acute pulmonary edema; Translations: [Acute edema of lung, unspecified]53-15-6049TpqtqgqbKkwwr nervous system disorders (16 sources)Disorder of brain; Translations: [Encephalopathy, unspecified] 36-38-7202SswvvgyLzizp nervous system disorders (4 sources)Encephalopathy, unspecified; Translations: [Encephalopathy, unspecified]44-51-2154MxjhdnuPtstu nervous system disorders (17 sources)Neuropathy; Translations: [Polyneuropathy, unspecified]Onset: 706277-14-7867FvwvplyQgflb non-traumatic joint disorders (3 sources)Pain in right shoulder; Translations: [Acute pain of right shoulder] Onset: 189871-51-2382IjuavclcAruyi non-traumatic joint disorders (2 sources)Pain in left shoulder; Translations: [Left shoulder pain]03-29-2025 EpisodicOther nutritional; endocrine; and metabolic disorders (20 sources)Obesity; Translations: [Obesity, unspecified]ChronicOther nutritional; endocrine; and metabolic disorders (20 sources)Obese class I; Translations: [Body mass index (BMI) 31.0-31.9, adult]ChronicOther nutritional; endocrine; and metabolic disorders (20 sources)Body mass index 30+ - obesity; Translations: [Body mass index (BMI) 30.0-30.9, adult]88-48-0696ChnchkdZjvxu nutritional; endocrine; and metabolic disorders (3 sources)Body mass index (BMI) 30.0-30.9, adult; Translations: [BMI 30.0- 30.9,adult Z68.30]Onset: 02-22-2021 Resolved: 75-12-8679MuxlozaYrowu nutritional; endocrine; and metabolic disorders (3 sources)Body mass index (BMI) 31.0-31.9, adult; Translations: [Body Mass Index 31.0-31.9, adult]Onset: 04-03-2021 Resolved: 26-46-3022HyeictiCgady nutritional; endocrine; and metabolic disorders (20 sources)Obese class II; Translations: [Body mass index (BMI) 36.0-36.9, adult]ChronicOther nutritional; endocrine; and metabolic disorders (1 source)Body mass index (BMI) 36.0-36.9, adultOnset: 08-23-2021 Resolved: 00-57-0801BpojawpTzxih nutritional; endocrine; and metabolic disorders (1 source)Body mass index (BMI) 35.0-35.9, adultOnset: 02-06-2022 Resolved: 04-24-7119HyveybmPgsbg nutritional; endocrine; and metabolic disorders (1 source)Body mass index (BMI) 34.0-34.9, adultChronicOther nutritional; endocrine; and metabolic disorders (20 sources)Hyperphosphatemia; Translations: [Other disorders of phosphorus metabolism]Onset: 476524-16-7091BdarvcsVfcns nutritional; endocrine; and metabolic disorders (12 sources)Other disorders of phosphorus metabolism; Translations: [Disorders of phosphorus metabolism]00-89-4676BarijrgPmmlr nutritional; endocrine; and metabolic disorders (20 sources)Overweight in adulthood with body mass index of 25 or more but less than 30; Translations: [Body mass index (BMI) 29.0-29.9, adult]09-29-2023 EpisodicOther nutritional; endocrine; and metabolic disorders (4 sources)Body mass index (BMI) 29.0-29.9, adult; Translations: [Body Mass Index 29.0-29.9, adult]70-80-9619MjjgenacZgcuc nutritional; endocrine; and metabolic disorders (2 sources)Body mass index (BMI) 28.0-28.9, adult; Translations: [Body Mass Index 28.0-28.9, adult]01-03-7771ZyomnkiyGltpq nutritional; endocrine; and metabolic disorders (8 sources)Hyperuricemia; Translations: [Hyperuricemia without signs of inflammatory arthritis and tophaceous disease]43-35-8244ZzyqpjzcHmimr screening for suspected conditions (not mental disorders or infectious disease) (20 sources)Encounter for screening for malignant neoplasm of colon; Translations: [Protein level - finding]Onset: 36-36-2626UeknvsgnWyept skin disorders (6 sources)Asteatosis cutis; Translations: [Xerosis cutis]95-59-8882Fjqsvupb Peripheral and visceral atherosclerosis (20 sources)Peripheral vascular disease; Translations: [Peripheral vascular disease, unspecified]Onset: 43-34-1326LivlpazOgdjjyqz codes; unclassified (20 sources)Obstructive sleep apnea syndrome; Translations: [Obstructive sleep apnea (adult) (pediatric)]Onset: 398796-14-4021OmallsvQxpjnjjx codes; unclassified (20 sources)Deficient knowledge of dietary regimen; Translations: [Other specified health status]EpisodicResidual codes; unclassified (1 source)Acquired absence of other specified parts of digestive tract; Translations: [ACQ ABSENCE OTH PART DIGESTV TRACT]Onset: 74-21-0244Lqaqfltd Residual codes; unclassified (3 sources)Other specified postprocedural states; Translations: [Tracheostomy status]30-76-8067OszawmnhAagnyhtr codes; unclassified (1 source)Altered mental status, unspecified; Translations: [Altered mental status, unspecified]Onset: 47-61-4670KgahswgeKkrshsehtwv failure; insufficiency; arrest (adult) (13 sources)Chronic respiratory failure; Translations: [Chronic respiratory failure, unspecified whether with hypoxia or hypercapnia]78-75-4262Qcuosod Respiratory failure; insufficiency; arrest (adult) (20 sources)Acute respiratory failure; Translations: [Acute respiratory failure with hypoxia]34-82-2855GmgsrndnZpohkwovn and history of mental health and substance abuse codes (1 source)Personal history of nicotine dependence; Translations: [PERSONAL HISTORY OF NICOTINE DEPEND]Onset: 38-35-6881TjtjuibfEszbelkfeq (except in labor) (20 sources)Sepsis; Translations: [Sepsis, unspecified organism]07-10-2023 EpisodicSkin and subcutaneous tissue infections (20 sources)Cellulitis of left foot; Translations: [Cellulitis of left lower limb]21-33-9554AfneaztbWddldtbtyzw; intervertebral disc disorders; other back problems (20 sources)Degeneration of cervical intervertebral disc; Translations: [Other cervical disc degeneration, unspecified cervical region]Onset: 10-02-2023 01-29-3569TgrmlddJaaeggzhigj; intervertebral disc disorders; other back problems (20 sources)Sciatica; Translations: [Sciatica, left side]09-48-6757Kmfesaht Substance-related disorders (2 sources)Tobacco dependence caused by cigarettes; Translations: [Nicotine dependence, cigarettes, uncomplicated]Onset: hronic Transient cerebral ischemia (19 sources)Transient cerebral ischemia; Translations: [Transient cerebral ischemic attack, unspecified]Onset: 958481-71-5286IfljvneFknezmuxzeqj (1 source)ConsultOnset: 02-03-6099Sgnucwkgbtce (1 source)EMSOnset: 54-82-0533Zakrujpjfbnc (5 sources)Patient on antidepressant monitoring planOnset: 702462-63-1055 Past or Other Problems Problem ClassificationProblemDateDocumented DateEpisodic/ChronicMood disorders (20 sources)Mood disordersOnset: 01-13-2024 Resolved: Other lower respiratory disease (20 sources)Orthopnea; Translations: [Orthopnea]Onset: 10-29-2023 Resolved: 533776-59-9864VgrzsgprEisje lower respiratory disease (2 sources)Other forms of dyspnea; Translations: [Other forms of dyspnea]Onset: 43-14-9344YnvhvvqqXulta male genital disorders (7 sources)Phimosis; Translations: [Phimosis]Onset: 781089-00-5337Bgxfztqj Residual codes; unclassified (20 sources)Bilateral lower limb edema; Translations: [Localized edema]Onset: 10-29-2023 Resolved: 178117-24-4308Sltoilrp Results Test NameValueInterpretationReference RangeFacilityAppearance of UrineOrdered By: Kodi Lopes on 91-21-1298Ktwmokkxxw (U)ClearCleHarrison Community HospitalComment on above:Order Comment: Name Collection Type:: Clean- Voided MidstreamPerformed By: #### ADDONUAPLUS #### [place] [address] USABNP ser/plasOrdered By: Kodi Lopes on 03-11-2025 Natriuretic peptide B (Bld) [Mass/Vol]54.0 pg/mL5-100[facility] Health MiamisburgComment on above:Result Comment: PERFORMED BY: [place] [address] PATHOLOGIST OXIDIZED FINISH PLATER JAN PETERSON M.D.Performed By: #### CBC, BMP, BNP, HS TROP, PT #### [place] [id number] USABacteria [Presence] in Urine by AutomatedOrdered By: Kodi Lopes on 99-22-7895Ozxdziry Auto Ql (U)None seen [HPF]None Seen [facility] MiamisburgBasic Metabolic Panelon 74-49-0740Yzyzugghiw Clr Calc Kywawsmk67.63NoCarePart[facility] Hospital Physician GroupComment on above:Result Comment: PERFORMED BY: [place] [address] PATHOLOGIST OXIDIZED FINISH PLATER JAN PETERSON M.D.Performed By: #### CBC, BMP, BNP, HS TROP, PT #### [place] [id number] USAGFR/1.73 sq M.predicted MDRD (S/P/Bld) [Vol rate/Area] 27.934 mL/min/{1.73_m2}NormalThe [facility] Physician GroupComment on above: Performed By: #### CBC, BMP, BNP, HS TROP, PT #### [place] [id number] USABasophils [#/volume] in Blood by Automated countOrdered By: Kodi Lopes on 44-37-5723Ioxcsytfy (Bld) [#/Vol]0.1 10*3/uL0.0-0.2 [facility] MiamisburgComment on above:Result Comment: PERFORMED BY: [place] [address] PATHOLOGIST OXIDIZED FINISH PLATER JAN PETERSON M.D.Performed By: #### CBC, BMP, BNP, HS TROP, PT #### [place] [address] USABasophils/100 leukocytes in Blood by Automated count Ordered By: Kodi Lopes on 74-14-9669Vcyznynyh/100 WBC (Bld)0.8 %.[facility] MiamisburgComment on above:Performed By: #### CBC, BMP, BNP, HS TROP, PT #### [facility] [address] [place] [address] USABilirubin Test strip Ql (U)Ordered By: Kodi Lopes on 04-87-4713Hlhnileok Ql (U)NegativeNegativeKettering Health MiamisburgCT cervical spine wo conon 34-04-5761FM cervical spine wo [facility] [place] [address] [place] [address] CT Scan Report Signed Patient: Chelsea Diego JR MR#: [id number] : 1950 Acct:[id number] Age/Sex: 74 / M ADM Date: 03/11/25 Loc: ER Room: Type: [facility] ER Attending Dr: Copies to: LELAND Templeton MD, RES Ordering Provider: Kodi Lopes MD, RES Date of Service: 03/11/25 CT/CT cervical spine wo con: fall with worsening pain CT CERVICAL SPINE WITHOUT CONTRAST: CLINICAL HISTORY: Fall 6 weeks ago, chronic neck pain COMPARISON: None TECHNIQUE: Spiral axial unenhanced images were obtained through the cervical spine. Sagittal, coronal reconstructions were also reviewed. This CT exam was performed using one or more following dose reduction techniques: Automated exposure control, adjustment of the mA and/or kV according to patient size, or use of iterative reconstruction technique. FINDINGS: Straightening and mild reversal normal cervical lordosis. Anterolisthesis C4 and C5 2 mm. Severe disc space disease C5-6 and moderate severe disc disease C6-T1. Moderate severe multilevel facet arthropathy. No evidence of acute fracture. No traumatic malalignment. No Prevertebral soft tissues thickening. There are vascular calcifications. There are enlarged right level 2/3 lymph nodes measuring up to [address]/CT cervical spine wo con IMPRESSION: NO CERVICAL SPINE FRACTURE MULTILEVEL DEGENERATIVE CHANGE. ENLARGED RIGHT 2/3 ADENOPATHY IDENTIFIED. PLEASE CORRELATE WITH CLINICAL EXAM FINDINGS. Impression dictated by: Vikas Andrea M.D. 03/11/2025 7:26 PM Dictation Location: [place] [address] Transcribed By: [facility] 03/11/251925 Dictated By: Vikas Andrea MD 03/11/251921 Signed By: 03/11/251925[facility] Physician GroupCT head/brain wo conon 73-76-0980HJ head/brain wo [facility] [place] [address] [place] [address] CT Scan Report Signed Patient: Chelsea Diego JR MR#: [id number] : 1950 Acct:[id number] Age/Sex: 74 / M ADM Date: 03/11/25 Loc: ER Room: Type: [facility] ER Attending Dr: Copies to: Luna Joyce APRN Ordering Provider: Luna Joyce APRN Date of Service: 03/11/25 CT/CT head/brain wo con: . CT BRAIN WITHOUT CONTRAST: CLINICAL HISTORY: Fall 6 weeks ago, chronic neck pain COMPARISON: None TECHNIQUE: Contiguous axial unenhanced images were obtained through the brain. This CT exam was performed using one or more following dose reduction techniques: Automated exposure control, adjustment of the mA and/or kV according to patient size, or use of iterative reconstruction technique. FINDINGS: There is no evidence of midline shift, intra or extra-axial fluid collection, hemorrhage or CT evidence of acute large vascular distribution stroke. Central involutional changes and minor microvascular change noted. Intracranial vascular calcifications. Cataract surgery. Mild sinus disease. Right ethmoid sinus osteoma. No calvarial fracture CT/CT head/brain wo con IMPRESSION: NO ACUTE INTRACRANIAL ABNORMALITY. Impression dictated by: Vikas Andrea M.D. 03/11/2025 7:05 PM Dictation Location: [place] [address] Transcribed By: [facility] 03/11/251904 Dictated By: Vikas Andrea MD 03/11/251902 Signed By: 03/11/251904[facility] Physician GroupCalcium [Mass/volume] in Serum or PlasmaOrdered By: Kodi Lopes on 14-76-5994Qvyyjuf [Mass/Vol]8.7 mg/dL 8.6-10.3FRegency Hospital ToledoComment on above:Performed By: #### CBC, BMP, BNP, HS TROP, PT #### [place] [address] USACarbon dioxide, total [Moles/volume] in Serum or Plasma Ordered By: Kodi Lopes on 06-56-0675JQ1 [Moles/Vol]29.1 mmol/L21.0-31.0 [facility] MiamisburgComment on above:Performed By: #### CBC, BMP, BNP, HS TROP, PT #### [facility] [address] [place] [address] USAChloride [Moles/volume] in Serum or PlasmaOrdered By: Kodi Lopes on 31-68-9777Gtythcab [Moles/Vol]100 mmol/K26-985JlwjwrzahKettering Health MiamisburgComment on above:Performed By: #### CBC, BMP, BNP, HS TROP, PT #### [facility] [address] [place] [address] USAColor of Urine by AutoOrdered By: Kodi Lopes on 81-70-7463Nndkj (U)Light-yellowYellowKettering Health MiamisburgComment on above:Order Comment: Name Collection Type:: Clean-Voided MidstreamPerformed By: #### ADDONUAPLUS #### [place] [id number] USAComplete Blood Count Auto Diffon 98-86-2121Jkkk Corpuscular HGB Conc34.6 g/eNLdmvao89.5-35.6[facility] Physician GroupComment on above:Performed By: #### CBC, BMP, BNP, HS TROP, PT #### [facility] [address] [place] [address] USAMonocytes/100 WBC (Bld)18.24 %Normal0.00-20.00[facility] Physician GroupComment on above:Performed By: #### CBC, BMP, BNP, HS TROP, PT #### [facility] [address] [place] [address] USANRBC%0.0 /100{WBC}Normal0-0.5[facility] Physician Group Comment on above:Performed By: #### CBC, BMP, BNP, HS TROP, PT #### [facility] [address] [place] [address] USAWhite Blood Count9.4 [CFU]/mLNormal4.1-10.5[facility] Physician GroupComment on above:Performed By: #### CBC, BMP, BNP, HS TROP, PT #### [facility] [address] [place] [address] USACreatinine [Mass/volume] in Serum or PlasmaOrdered By: Kodi Lopes on 13-61-5639Ysfquqtpsl [Mass/Vol]2.39 mg/dLHigh0.70-1.30 [facility] MiamisburgComment on above:Performed By: #### CBC, BMP, BNP, HS TROP, PT #### [facility] [address] [place] [address] USADipstick and Microscopicon 03-25-6651Tktulioi,UrineNone SeenNormalNone SeenThe [facility] Physician [facility] Health NatchezComment on above:Order Comment: Name Collection Type:: Clean-Voided MidstreamPerformed By: #### ADDONUAPLUS #### [place] [address] USABilirubin,UrineNegativeNormalNegativeThe [facility] Physician GroupComment on above:Order Comment: Name Collection Type:: Clean- Voided MidstreamPerformed By: #### ADDONUAPLUS #### [place] [address] USAGlucose Ql (U)NormalNormalNormalThe [facility] Physician GroupComment on above:Order Comment: Name Collection Type:: Clean-Voided MidstreamPerformed By: #### ADDONUAPLUS #### [place] [address] USAHyaline Casts,Iahqw63-47Notery4-4Jrq [facility] Physician GroupComment on above:Order Comment: Name Collection Type:: Clean-Voided MidstreamPerformed By: #### ADDONUAPLUS #### [place] [address] USAMucus,UrineRareNormalShorepoint Health Port Charlotte Physician GroupComment on above:Order Comment: Name Collection Type:: Clean-Voided MidstreamResult Comment: PERFORMED BY: [place] [address] PATHOLOGIST OXIDIZED FINISH PLATER JAN PETERSON M.D.Performed By: #### ADDONUAPLUS #### [place] [address] USANitrite,UrineNegativeNormalNegativeShorepoint Health Port [facility] Physician GroupComment on above:Order Comment: Name Collection Type:: Clean-Voided MidstreamPerformed By: #### ADDONUAPLUS #### [place] [id number] USAOccult Blood,UrineNegativeNormalNegativeShorepoint Health [facility] Physician GroupComment on above:Order Comment: Name Collection Type:: Clean- Voided MidstreamResult Comment: PERFORMED BY: [place] [address] PATHOLOGIST OXIDIZED FINISH PLATER JAN PETERSON M.D.Performed By: #### ADDONUAPLUS #### [address] [address] USARBC,Bmipw9-0Gsracz6-4Awe [facility] Physician GroupComment on above:Order Comment: Name Collection Type:: Clean-Voided MidstreamPerformed By: #### ADDONUAPLUS #### [place] [address] USASpecificy [place],Urine1.555Llblgp8.001-1.030The [facility] Physician GroupComment on above:Order Comment: Name Collection Type:: Clean- Voided MidstreamPerformed By: #### ADDONUAPLUS #### [place] [address] USASquamous Epithelial Cell,Cbair3-5Hlgdbv4-7Jxx [facility] Physician GroupComment on above:Order Comment: Name Collection Type:: Clean- Voided MidstreamPerformed By: #### ADDONUAPLUS #### [place] [address] USAUrobilinogen,UrineNormalNormalNormalThe [facility] Physician GroupComment on above:Order Comment: Name Collection Type:: Clean- Voided MidstreamPerformed By: #### ADDONUAPLUS #### [place] [address] USAWBC,Idfjz5-1Onzgzh7-4Wvd [facility] Physician GroupComment on above:Order Comment: Name Collection Type:: Clean-Voided MidstreamPerformed By: #### ADDONUAPLUS #### [place] [address] USAECG 12 lead ECGon 78-15-1314FHQ 12 lead [facility]GCLEVELAND [facility] [place] [address] [place] [address] Electrocardiograph Report Signed Patient: Chelsea Diego JR MR#: [id number] : 1950 Acct:[id number] Age/Sex: 74 / M ADM Date: 03/11/25 Loc: ER Room: Type: [facility] ER Attending Dr: Ordering Provider: Kodi Lopes MD, RES Date of Service: 03/11/25 ECG/ECG 12 lead ECG: Extremity Injury, Upper Copies to: Test Reason : Blood Pressure : */* mmHG Vent. Rate : 62 BPM Atrial Rate : 62 BPM P-R Int : 212 ms QRS Dur : 98 ms QT Int : 464 ms P-R-T Axes : 29 22 50 degrees QTcB Int : 470 ms Sinus rhythm with 1st degree AV block Otherwise normal ECG When compared with ECG of 12-Aug-2023 06:43, NV interval has increased Vent. rate has decreased by 57 bpm Nonspecific T wave abnormality no longer evident in Lateral leads Confirmed by JOHN JUAN MD ([id number]) on 03/11/2025 7:32:09 PM Referred By: Electronically Signed By: JOHN JUAN MD Transcribed By: MUS Signed By John Juan MD 03/11/[address] [place] [address] Physician GroupEosinophils [#/volume] in Blood by Automated countOrdered By: Kodi Lopes on 36-80-0967Zsbiaxgbhag (Bld) [#/Vol] 0.3 10*3/uL0.0-0.45[facility] MiamisburgComment on above:Performed By: #### CBC, BMP, BNP, HS TROP, PT #### [facility] [address] [place] [address] USAEosinophils/100 leukocytes in Blood by Automated count Ordered By: Kodi Lopes on 37-81-1039Afbrtcqppty/100 WBC (Bld)3.5 %.[facility] MiamisburgComment on above:Performed By: #### CBC, BMP, BNP, HS TROP, PT #### [facility] [address] [place] [address] USAEpithelial cells.squamous [#/area] in Urine sediment by Automated countOrdered By: Kodi Lopes on 76-07-0175Reizekzrsr cells.squamous Auto (Urine sed) [#/Area]1-2 [HPF]0-2FRegency Hospital Toledo Erythrocyte distribution width [Ratio] by Automated countOrdered By: Kodi Lopes on 81-07-0502Hhjqagyxnxx distribution width (RBC) [Ratio]14.3 %12.0-14.8 [facility] MiamisburgComment on above:Performed By: #### CBC, BMP, BNP, HS TROP, PT #### [facility] [address] [place], [place] [address] USAErythrocytes [#/area] in Urine sediment by Automated count Ordered By: Kodi Lopes on 96-66-4230ZCB Auto (Urine sed) [#/Area]3-4 [HPF] 0-4FRegency Hospital ToledoErythrocytes [#/volume] in Blood by Automated countOrdered By: Kodi Marianne on 11-71-7240PUW (Bld) [#/Vol]3.32 10*6/uLLow3.90-5.60[facility] MiamisburgComment on above:Performed By: #### CBC, BMP, BNP, HS TROP, PT #### [facility] [address] [place] [address] USAGlomerular filtration rate [Volume Rate/Area] in Serum, Plasma or Blood by CreatinineOrdered By: Kodi Lopes on 19-38-0866Gperbjvmiw filtration rate [Volume Rate/Area] in Serum, Plasma or Blood by Ybdxpyweoc34.934 mL/MinKettering Health MiamisburgGlucose [Mass/volume] in Serum or Plasma Ordered By: Kodi Lopes on 52-46-3705Qgdqasp [Mass/Vol]142 mg/wBHovp82-619 [facility] MiamisburgComment on above:ADA recommended reference rangeRandom Glucose Reference Range is dependent on time and content of last meal. Glucose of more than 200 mg/dL in a nonstressed, ambulatory subject supports the diagnosisof Diabetes Mellitus.Result Comment: Random Glucose Reference Range is dependent on time and content of last meal. Glucose of more than 200 mg/dL in a nonstressed, ambulatory subject supports the diagnosis of Diabetes Mellitus. ADA recommended reference rangePerformed By: #### CBC, BMP, BNP, HS TROP, PT #### [facility] [address] [place] [address] USAGlucose [Mass/volume] in Urine by Test stripOrdered By: Kodi Lopes on 33-47-3155Zmoetjs Test strip (U) [Mass/Vol]Normal mg/dLNormal [facility] MiamisburgHematocrit [Volume Fraction] of Blood by Automated countOrdered By: Kodi Lopes on 01-57-6448Hyzewxsptl (Bld) [Volume fraction]29.3 %Low38.8-50.0[facility] MiamisburgComment on above: Performed By: #### CBC, BMP, BNP, HS TROP, PT #### [facility] [address] [place] [address] USAHemoglobin Test strip Ql (U)Ordered By: Kodi Lopes on 90-30-9987Yzmfmncxkq Ql (U)NegativeNegativeKettering Health Miamisburg Hemoglobin [Mass/volume] in BloodOrdered By: Kodi Lopes on 03-11-2025 Hemoglobin (Bld) [Mass/Vol]10.1 g/dLLow13.0-17.0[facility] MiamisburgComment on above:Performed By: #### CBC, BMP, BNP, HS TROP, PT #### [facility] [address] [place] [address] USAHyaline casts [#/area] in Urine sediment by Automated countOrdered By: Kodi Lopes on 58-98-8500Ctogthf casts Auto (Urine sed) [#/Area]20-49 [LPF]High0-8[facility] MiamisburgINR in Platelet poor plasma by Coagulation assayOrdered By: Kodi Lopes on 29-38-2401UHL Coag (PPP) [Relative time]1.0 {INR}[facility] MiamisburgComment on above: INR Therapeutic Range A) Pre- and Peroperative [...] with mechanical heart valves: 3 - 4.5 PERFORMED BY: [place] [address] PATHOLOGIST OXIDIZED FINISH PLATER JAN PETERSON M.D.Performed By: #### CBC, BMP, BNP, HS TROP, PT #### [facility] [address] [place] [address] USAKetones [Presence] in Urine by Test stripOrdered By: Kodi Lopes on 39-36-0483Hhpubec Ql (U)NegativeNegAultman Orrville HospitalComment on above:Order Comment: Name Collection Type:: Clean- Voided MidstreamPerformed By: #### ADDONUAPLUS #### [facility] [address] [place] [address] USALeukocyte esterase [Presence] in Urine by Test strip Ordered By: Kodi Lopes on 04-10-7886Zhlzcnzlm esterase Test strip Ql (U) NegativeNegAultman Orrville HospitalComment on above:Order Comment: Name Collection Type:: Clean-Voided MidstreamPerformed By: #### ADDONUAPLUS #### [place] [address] USALeukocytes [#/area] in Urine sediment by Automated count Ordered By: Kodi Lopes on 74-90-2184XLE Auto (Urine sed) [#/Area]1-2 [HPF] 0-4FRegency Hospital ToledoLeukocytes [#/volume] corrected for nucleated erythrocytes in Blood by Automated counOrdered By: Kodi Lopes on 12-72-8207AWQ corrected for nucl RBC Auto (Bld) [#/Vol]9.4 10*3/uL4.1-10.5 [facility] MiamisburgLeukocytes [#/volume] in Blood by Automated countOrdered By: Kodi Lopes on 63-97-3999IUM (Bld) [#/Vol]9.4 10*3/uL 4.1-10.5FRegency Hospital ToledoComment on above:Performed By: #### CBC, BMP, BNP, HS TROP, PT #### [facility] [address] [place] [address] USALymphocytes [#/volume] in Blood by Automated countOrdered By: Kodi Lopes on 73-37-1044Yahvphjgqqg (Bld) [#/Vol]2.6 10*3/uL1.00-4.8 [facility] MiamisburgComment on above:Performed By: #### CBC, BMP, BNP, HS TROP, PT #### [facility] [address] [place] [address] USALymphocytes/100 leukocytes in Blood by Automated count Ordered By: Kodi Lopes on 69-73-8263Zpeczsuaenr/100 WBC (Bld)27.6 %. [facility] MiamisburgComment on above:Performed By: #### CBC, BMP, BNP, HS TROP, PT #### [facility] [address] [Entitic mass] by Automated countOrdered By: Kodi Lopes on 76-67-7827ROS (RBC) [Entitic mass]30.6 pg27.5-35.2FRegency Hospital ToledoComment on above:Performed By: #### CBC, BMP, BNP, HS TROP, PT #### [facility] [address] [place] [address] [facility] YUKONHC Auto (RBC) [Mass/Vol]Ordered By: Kodi Lopes on 40-31-3578VXWK (RBC) [Mass/Vol]34.6 g/dL32.5-35.6FRegency Hospital ToledoMCV [Entitic volume] by Automated countOrdered By: Kodi Lopes on 58-57-8201LEG (RBC) [Entitic vol]88.2 fL83.5-101[facility] MiamisburgComment on above:Performed By: #### CBC, BMP, BNP, HS TROP, PT #### [facility] [address] [place] [address] USAMonocyte distribution width [Entitic volume] in Blood by AutomatedOrdered By: Kodi Lopes on 76-35-5221Idsihtsh distribution width Auto (Bld) [Entitic vol]18.24 %0.00-20.00[facility] Monocytes [#/volume] in Blood by Automated countOrdered By: Kodi Lopes on 27-57-3253Yhpaulzqg (Bld) [#/Vol]0.9 10*3/uLHigh0.0-0.8[facility] MiamisburgComment on above:Performed By: #### CBC, BMP, BNP, HS TROP, PT #### [facility] [address] [place] [address] USAMonocytes/100 leukocytes in Blood by Automated count Ordered By: Kodi Lopes on 60-48-0835Inqgqigmv/100 WBC (Bld)9.7 %.[facility] MiamisburgComment on above:Performed By: #### CBC, BMP, BNP, HS TROP, PT #### [place] [address] USAMucus [Presence] in Urine by AutomatedOrdered By: Kodi Lopes on 19-81-8067Utvsk Auto Ql (U)Rare [LPF][facility] MiamisburgNeutrophils [#/volume] in Blood by Automated countOrdered By: Kodi Lopes on 13-99-1611Dwlidzmgbfm (Bld) [#/Vol]5.5 10*3/uL1.8-7.7FRegency Hospital ToledoComment on above:Performed By: #### CBC, BMP, BNP, HS TROP, PT #### [place] [id number] USANeutrophils/100 leukocytes in Blood by Automated count Ordered By: Kodi Lopes on 04-78-1710Dgvlrhtqqnd/100 WBC (Bld)58.4 %. [facility] MiamisburgComment on above:Performed By: #### CBC, BMP, BNP, HS TROP, PT #### [place] [address] USANitrite Test strip Ql (U)Ordered By: Kodi Lopes on 14-93-9916Boefuwy Ql (U)NegativeNegativeKettering Health MiamisburgNo Panel InformationOrdered By: Kodi Lopes on 74-58-6074Nhnlirfv Creatinine Clearance (Chem26.63[facility] MiamisburgNucleated erythrocytes [Presence] in Blood by Automated countOrdered By: Kodi Lopes on 03-11-2025 Nucleated RBC Auto Ql (Bld)0.0 /100{WBC}0-0.5FRegency Hospital Toledo Platelet mean volume [Entitic volume] in Blood by Automated countOrdered By: Kodi Lopes on 35-63-6603Nvbmxqqi mean volume (Bld) [Entitic vol]8.3 fL 6.6-10.1FRegency Hospital ToledoComment on above:Performed By: #### CBC, BMP, BNP, HS TROP, PT #### [facility] [address] [place] [address] USAPlatelets [#/volume] in Blood by Automated countOrdered By: Kodi Lopes on 39-94-4070Qriumtsku (Bld) [#/Vol]368 10*3/kP726-362 [facility] MiamisburgComment on above:Performed By: #### CBC, BMP, BNP, HS TROP, PT #### [facility] [address] [place] [address] USAPotassium [Moles/volume] in Serum or PlasmaOrdered By: Kodi Lopes on 08-01-4912Lpzvrhorz [Moles/Vol]3.5 mmol/L3.5-5.1FRegency Hospital ToledoComment on above:Performed By: #### CBC, BMP, BNP, HS TROP, PT #### [facility] [address] [place] [address] USAProtein [Mass/volume] in Urine by Test stripOrdered By: Kodi Lopes on 25-96-5141Lklfcuj (U) [Mass/Vol]20 mg/dLHighNegativeKettering Health MiamisburgComment on above:Order Comment: Name Collection Type:: Clean-Voided MidstreamPerformed By: #### ADDONUAPLUS #### [facility] [address] [place], [place] [address] USAProthrombin time (PT)Ordered By: Kodi Lopes on 43-09-1255EH Coag (PPP) [Time]11.1 s9.0-12.9[facility] Comment on above:A hematocrit value greater than 55% may lead to inaccurate results in coagulation testing. Patientshaving hematocrit values >55% require a special collection tube for coagulation studies. Please contact the laboratory at [phone] for redraw instructions.Result Comment: A hematocrit value greater than 55% may lead to inaccurate results in coagulation testing. Patients having hematocrit values >55% require a special collection tube for coagulation studies. Please contact the laboratory at [phone] for redraw instructions.Performed By: #### CBC, BMP, BNP, HS TROP, PT #### [place] [address] USASerum or plasma anion gap determinationOrdered By: Kodi Lopes on 34-10-7014Kgtgo gap [Moles/Vol]11.4 mmol/L6.0-15.0[facility] MiamisburgComment on above:Performed By: #### CBC, BMP, BNP, HS TROP, PT #### [place] [address] USASodium [Moles/volume] in Serum or PlasmaOrdered By: Kodi Lopes on 26-65-5404Wmgece [Moles/Vol]137 mmol/C886-081NzjztqxhoKettering Health MiamisburgComment on above:Performed By: #### CBC, BMP, BNP, HS TROP, PT #### [place] [id number] USASpecific gravity Test strip (U) [Rel density]Ordered By: Kodi Lopes on 26-15-2354Fabmdetp gravity (U) [Rel density]1.0141.001-1.030 [facility] MiamisburgTroponin I High Sensitivityon 03-11-2025 Troponin I High Ikjaxgsdxly9Oggjkt9-73Dyf [facility] Physician GroupComment on above:Result Comment: The Troponin units of report have been changed to meet the Chest Pain Accreditation requirement, element EC5.M1l2. Troponin units are changed from pg/ml to ng/L. Also, the decimal is removed and results are in whole numbers. PERFORMED BY: [place] [id number] PATHOLOGIST OXIDIZED FINISH PLATER JAN PETERSON M.D.Performed By: #### CBC, BMP, BNP, HS TROP, PT #### [place] [address] USATroponin I.cardiac [Mass/volume] in Serum or Plasma by Detection limit <= 0.01 ng/mLOrdered By: Kodi Lopes on 26-73-9284Ozixqsnq I.cardiac DL <= 0.01 ng/mL [Mass/Vol]5 ng/L0-[facility] Comment on above:The Troponin units of report have been changed to meet the Chest Pain Accreditation requirement, element EC5.M1l2. Troponin units are changed from pg/ml to ng/L. Also, the decimal is removed and results are in whole numbers.Urea nitrogen [Mass/volume] in Serum or PlasmaOrdered By: Kodi Lopes on 58-26-0208Vpfw nitrogen [Mass/Vol]37 mg/dLPlateau Medical Center12-17[facility] MiamisburgComment on above:Performed By: #### CBC, BMP, BNP, HS TROP, PT #### [place] [address] USAUrobilinogen Test strip (U) [Mass/Vol]Ordered By: Kodi Lopes on 38-18-3111Vxctfefvrswj (U) [Mass/Vol]Normal mg/dLNormalKettering Health MiamisburgX-ray reportOrdered By: Vikas Andrea on 58-66-0298Frihj [facility] [place] [address] [place] [address] XRay Report Signed Patient: Chelsea Diego JR MR#: [id number] : 1950 Acct:[id number] Age/Sex: 74 / M ADM Date: 5 Loc: ER Room: Type: [facility] ER Attending Dr: Copies to: LELAND Templeton MD, RES~ Ordering Provider: Kodi Lopes MD, RES Date of Service: 03/11/25 XR/XR femur LT 2V*: Extremity Injury, Upper AP PELVIS/2 VIEWS LEFT FEMUR: CLINICAL HISTORY: Fall 6 weeks ago COMPARISON: None Pelvis/left femur: No fractures or dislocation involving the left femur, hips or pelvis. Slight irregularity involvingboth inferior pubic rami may be related to degenerative changes rather than a nondisplaced fracture. Moderate degenerative changes lefthip and degenerative changes at level of the knee. XR/XR femur LT 2V* IMPRESSION: NO ACUTE BONY FINDINGS. DEGENERATIVE CHANGES. Impression dictated by: Vikas Andrea M.D. 03/11/2025 6:08 PM Dictation Location: RADIO-PC-29 Transcribed By: KHADIJAH 03/11/251807 Dictated By: Vikas Andrea MD 03/11/251807 Signed By: 03/11/251807 [facility] Work Phone: study [facility] [place] [address] XRay Report Signed Patient: Chelsea Diego JR MR#: [id number] : 1950 Acct:[id number] Age/Sex: 74 / M ADM Date: 5 Loc: ER Room: Type: [facility] ER Attending Dr: Copies to: LELAND Templeton MD, RES~ Ordering Provider: Kodi Lopes MD, RES Date of Service: 03/11/25 XR/XR chest 2V*: Extremity Injury, Upper PA AND LATERAL CHEST: CLINICAL HISTORY: Fall, right arm pain COMPARISON: 08/14/2023 FINDINGS: Unremarkable cardiomediastinal. Lungs clear. No effusion or pneumothorax. XR/XR chest 2V* IMPRESSION: NO ACUTE CARDIOPULMONARY ABNORMALITY. Impression dictated by: Vikas Andrea M.D. 03/11/2025 5:59 PM Dictation Location: RADIO-PC-29 Transcribed By: KHADIJAH 03/11/251758 Dictated By: Vikas Andrea MD 03/11/251758 Signed By: 03/11/251758 [facility] Work Phone: Study [facility] Main [address] [address] XRay Report Signed Patient: Chelsea Diego JR MR#: [id number] : 1950 Acct:[id number] Age/Sex: 74 / M ADM Date: 5 Loc: ER Room: Type: [facility] ER Attending Dr: Copies to: LELAND Templeton MD, RES~ Ordering Provider: Kodi Lopes MD, RES Date of Service: 03/11/25 XR/XR pelvis 1-2V: Extremity Injury, Upper AP PELVIS/2 VIEWS LEFT FEMUR: CLINICAL HISTORY: Fall 6 weeks ago COMPARISON: None Pelvis/left femur: No fractures or dislocation involving the left femur, hips or pelvis. Slight irregularity involvingboth inferior pubic rami may be related to degenerative changes rather than a nondisplaced fracture. Moderate degenerative changes lefthip and degenerative changes at level of the knee. XR/XR pelvis 1-2V IMPRESSION: NO ACUTE BONY FINDINGS. DEGENERATIVE CHANGES. Impression dictated by: Vikas Andrea M.D. 03/11/2025 5:58 PM Dictation Location: [place] [address] Transcribed By: [facility] 03/11/251757 Dictated By: Vikas Andrea MD 03/11/251755 Signed By: 03/11/251757 [facility] Work Phone: Stud[facility] [place] [address] XRay Report Signed Patient: Chelsea Diego JR MR#: [id number] : 1950 Acct:[id number] Age/Sex: 74 / M ADM Date: 5 Loc: ER Room: Type: [facility] ER Attending Dr: Copies to: LELAND Templeton MD, RES~ Ordering Provider: Kodi Lopes MD, RES Date of Service: 03/11/25 XR/XR humerus LT*: Extremity Injury, Upper ([id number]) XR/XR shoulder LT min 2V*: Extremity Injury, Upper 3 views left shoulder and 2 views left humerus CLINICAL HISTORY: Arm pain extremity injury COMPARISON: None FINDINGS: Moderate acromioclavicular and glenohumeral joint degenerative change. Calcificdensities along the subacromial location. Evidence of tendon anchors proximal humerus.. Otherwise no fracture or dislocation. Soft tissues grossly unremarkable. Right lung apex is clear. XR/XR shoulder LT min 2V* IMPRESSION: No acute bony process. Moderate degenerative changes. Impression dictated by: Vikas Andrea M.D. 03/11/2025 5:55 PM Dictation Location: RADIO-PC-29 Transcribed By: KHADIJAH 03/11/251754 Dictated By: Vikas Andrea MD 03/11/251744 Signed By: 03/11/251754 [facility] Work Phone: XR chest 2V*on 04-30-7664WV chest 2V*[facility] Main [place] [id number] XRay Report Signed Patient: Chelsea Diego JR MR#: [id number] : 1950 Acct:[id number] Age/Sex: 74 / M ADM Date: 03/11/25 Loc: ER Room: Type: [facility] ER Attending Dr: Copies to: LELAND Templeton MD, RES Ordering Provider: Kodi Lopes MD, RES Date of Service: 03/11/25 XR/XR chest 2V*: Extremity Injury, Upper PA AND LATERAL CHEST: CLINICAL HISTORY: Fall, right arm pain COMPARISON: 08/14/2023 FINDINGS: Unremarkable cardiomediastinal. Lungs clear. No effusion or pneumothorax. XR/XR chest 2V* IMPRESSION: NO ACUTE CARDIOPULMONARY ABNORMALITY. Impression dictated by: Vikas Andrea M.D. 03/11/2025 5:59 PM Dictation Location: RADIO-PC-29 Transcribed By: KHADIJAH 03/11/251758 Dictated By: Vikas Andrea MD 03/11/251758 Signed By: 03/11/251758[facility] Physician GroupXR femur LT 2V*on 21-14-3055SA femur LT 2V*[facility] Main [address] [address] XRay Report Signed Patient: Chelsea Diego JR MR#: [id number] : 1950 Acct:[id number] Age/Sex: 74 / M ADM Date: 03/11/25 Loc: ER Room: Type: [facility] ER Attending Dr: Copies to: LELAND Templeton MD, RES Ordering Provider: Kodi Lopes MD, RES Date of Service: 03/11/25 XR/XR femur LT 2V*: Extremity Injury, Upper AP PELVIS/2 VIEWS LEFT FEMUR: CLINICAL HISTORY: Fall 6 weeks ago COMPARISON: None Pelvis/left femur: No fractures or dislocation involving the left femur, hips or pelvis. Slight irregularity involving both inferior pubic rami may be related to degenerative changes rather than a nondisplaced fracture. Moderate degenerative changes left hip and degenerative changes at level of the knee. XR/XR femur LT 2V* IMPRESSION: NO ACUTE BONY FINDINGS. DEGENERATIVE CHANGES. Impression dictated by: Vikas Andrea M.D. 03/11/2025 6:08 PM Dictation Location: [place] [address] Transcribed By: [facility] 03/11/251807 Dictated By: Vikas Andrea MD 03/11/251807 Signed By: 03/11/[address] [place] [address] Physician GroupXR humerus LT*on 61-87-1121RO humerus LT*[facility] [place] [address] XRay Report Signed Patient: Chelsea Diego JR MR#: [id number] : 1950 Acct:[id number] Age/Sex: 74 / M ADM Date: 03/11/25 Loc: ER Room: Type: [facility] ER Attending Dr: Copies to: LELAND Templeton MD, RES Ordering Provider: Kodi Lopes MD, RES Date of Service: 03/11/25 XR/XR humerus LT*: Extremity Injury, Upper ([id number]) XR/XR shoulder LT min 2V*: Extremity Injury, Upper 3 views left shoulder and 2 views left humerus CLINICAL HISTORY: Arm pain extremity injury COMPARISON: None FINDINGS: Moderate acromioclavicular and glenohumeral joint degenerative change. Calcific densities along the subacromial location. Evidence of tendon anchors proximal humerus.. Otherwise no fracture or dislocation. Soft tissues grossly unremarkable. Right lung apex is clear. XR/XR shoulder LT min 2V* IMPRESSION: No acute bony process. Moderate degenerative changes. Impression dictated by: Vikas Andrea M.D. 03/11/2025 5:55 PM Dictation Location: RADIO-PC-29 Transcribed By: KHADIJAH 03/11/251754 Dictated By: Vikas Andrea MD 03/11/251744 Signed By: 03/11/251754[facility] Physician [facility] NatchezXR pelvis 1-2Von 72-24-9544LZ pelvis 1-2VCLEVELAND [facility] [place] [address] XRay Report Signed Patient: Chelsea Diego JR MR#: [id number] : 1950 Acct:[id number] Age/Sex: 74 / M ADM Date: 03/11/25 Loc: ER Room: Type: [facility] ER Attending Dr: Copies to: LELAND Templeton MD, RES Ordering Provider: Kodi Lopes MD, RES Date of Service: 03/11/25 XR/XR pelvis 1-2V: Extremity Injury, Upper AP PELVIS/2 VIEWS LEFT FEMUR: CLINICAL HISTORY: Fall 6 weeks ago COMPARISON: None Pelvis/left femur: No fractures or dislocation involving the left femur, hips or pelvis. Slight irregularity involving both inferior pubic rami may be related to degenerative changes rather than a nondisplaced fracture. Moderate degenerative changes left hip and degenerative changes at level of the knee. XR/XR pelvis 1-2V IMPRESSION: NO ACUTE BONY FINDINGS. DEGENERATIVE CHANGES. Impression dictated by: Vikas Andrea M.D. 03/11/2025 5:58 PM Dictation Location: RADIO-PC-29 Transcribed By: KHADIJAH 03/11/251757 Dictated By: Vikas Andrea MD 03/11/251755 Signed By: 03/11/251757[facility] Physician GrouppH of Urine by Test stripOrdered By: Kodi Lopes on 48-60-6248tK (U)5.5 [pH]5.0-9.0[facility]burgComment on above:Order Comment: Name Collection Type:: Clean-Voided MidstreamPerformed By: #### ADDONUAPLUS #### [facility] [address] [place] [address] LCWRbX3x HPLC (Bld) [Mass fraction]Ordered By: Louise Sotelo on 95-01-9447TnC7s (Bld) [Mass fraction]6.3 %[facility]burgNo Panel InformationOrdered By: Louise Sotelo on 51-81-6727Vqbmhdj Uxidilb114 [facility]burgALL URINALYSISon 16-60-7014AUKPMZNNW URINE NegativeNEGATIVENOMS HealthcareBLOOD URINENegativeNEGATIVENOMS HealthcareClarity (U)CLEARCLEARNOMS HealthcareColor (U)YELLOWYELLOWNOMS HealthcareGLUCOSE URINE UA NegativeNEGATIVE mg/dLNOMS HealthcareKetones Ql (U)NegativeNEGATIVE mg/dLNOHI HealthcareLeukocyte esterase Test strip Ql (U)NegativeNEGATIVENOMS Healthcare NITRITE URINENegativeNEGATIVENOMS HealthcarepH (U)6.0 [pH]5.0 - 9.0NOMS HealthcareProtein (U) [Mass/Vol]100 mg/dLAbnormalNEG/TRACENOMS Healthcare SPECIFIC GRAVITY URINE1.0201.005 - 1.025NOMS HealthcareUROBILINOGEN URINE0.2 EU/dL0.2 - 1.0 EU/dLNOMS HealthcareErythrocyte distribution width Auto (RBC) [Ratio]Ordered By: Sanket Hammer on 42-14-3930Vywnjpjhjks distribution width (RBC) [Ratio]12.2 %11.0-15.0[facility] MiamisburgGlomerular filtration rate (GFR) estimation in non- AmericanOrdered By: Sanket Hammer on 16-56-1359HGU/1.73 sq M.predicted among non-blacks MDRD (S/P/Bld) [Vol rate/Area]24 mL/min/{1.73_m2}Low>=60 mL/min/1.73m 2FKnox Community Hospital CBC WITH PLATELET NO DIFFERENTIALon 56-06-6905Xhpmhfzpqje distribution width (RBC) [Ratio]12.2 %11.0 - 15.0 %[facility] Medical CenterHematocrit (Bld) [Volume fraction]28 %Low42.0 - 54.0 %[facility] Medical CenterHemoglobin (Bld) [Mass/Vol]9.4 g/dLLow14.0 - 18.0 g/dLCox NorthH (RBC) [Entitic mass]30.6 pg25.9 - 34.0 pgCox NorthHC (RBC) [Mass/Vol]33.6 g/dL29.9 - 35.2 g/dL Cox NorthV (RBC) [Entitic vol]91.2 fL80.0 - 94.0 fLSaint John's Breech Regional Medical Center Platelet mean volume (Bld) [Entitic vol]9.7 fL9.5 - 13.5 fLCass Medical Center OLB176ZSIACass Medical Center RBC3.07LowCass Medical Center WBC11.4HighSaint John's Breech [facility] Hematocrit Auto (Bld) [Volume fraction]Ordered By: Sanket Hammer on 12-30-2024 Hematocrit (Bld) [Volume fraction]28.0 %Low42.0-54.0[facility]burgHemoglobin [Mass/volume] in BloodOrdered By: Sanket Hammer on 12-30-2024 Hemoglobin (Bld) [Mass/Vol]9.4 g/dLLow14.0-18.0[facility] Laboratory - Chemistry and Chemistry - challengeOrdered By: Sanket Hammer on 77-59-3922Vxrhrbn [Mass/Vol]3.6 g/dL3.4-5.0[facility] Calcium [Mass/Vol]8.8 mg/dL8.5-10.1FRegency Hospital ToledoChloride [Moles/Vol]102 mmol/F81-818GegyqpjroKettering Health MiamisburgCO2 [Moles/Vol]29.6 mmol/L21.0-32.0[facility] MiamisburgCobalamin (Vitamin B12) [Mass/Vol]401 pg/xL224-7912Qsslaorxt Regional Medical CenterComment on above: Performed at: - [facility] [id number] [place], [place] [id number] Director: Alvaro Verde PhD, Phone: [phone] [Mass/Vol]2.67 mg/dLHigh0.70-1.30[facility]burgGFR/1.73 sq M.predicted MDRD (S/P/Bld) [Vol rate/Area]29 mL/min/{1.73_m2}Low>=60 mL/min/1.73m 2FRegency Hospital ToledoGlucose [Mass/Vol]199 mg/jFZeti54-444PdywujcvoKettering Health MiamisburgPotassium [Moles/Vol]3.9 mmol/L3.5-5.1FSelect Medical Specialty Hospital - Cincinnati Northodium [Moles/Vol]137 mmol/K173-035JfjwylbeeKettering Health MiamisburgUrate [Mass/Vol]9.8 mg/dLHigh3.5-7.2FRegency Hospital ToledoUrea nitrogen [Mass/Vol]46.0 mg/dLHigh7.0-18.0[facility] MiamisburgUrea nitrogen/Creatinine [Mass ratio]17.2 mg/mgKettering Health [facility]burg Bilirubin Ql (U)NegativeNEGChillicothe HospitalGlucose (U) [Mass/Vol]NegativeNEGATIVEKettering Health MiamisburgKetones Ql (U) NegativeNEGChillicothe HospitalpH (U)6.0 [pH]5.0-9.0Knox Community Hospitalpecific gravity (U) [Rel density]1.0201.005-1.025 [facility] MiamisburgUrobilinogen Qn (U)0.2 {Bushra'U}/dL0.2-1.0 [facility]burgLaboratory - Specimen informationOrdered By: Sanket Hammer on 77-06-7877Ciepqxptss (U)CLEARCLEARFRegency Hospital ToledoColor (U)YELLOWYELLOWKettering Health MiamisburgLaboratory - UrinalysisOrdered By: Sanket Hammer on 48-28-0995Etuvgrirr esterase Test strip Ql (U)NegativeNEGChillicothe HospitalNitrite Ql (U)Negative NEGATIVEFirelands Regional Medical CenterProtein (U) [Mass/Vol]80.4 mg/dLHigh <=11.9[facility]burgProtein Ql (U)100 mg/dLAbnormalNEG/TRACE [facility] MiamisburgLeukocytes [#/volume] corrected for nucleated erythrocytes in Blood by Automated counOrdered By: Sanket Hammer on 39-91-1131MJF corrected for nucl RBC Auto (Bld) [#/Vol]11.4 10 3/uLHigh4.0-11.0UC HealthH Auto (RBC) [Entitic mass]Ordered By: Sanket Hammer on 90-30-2694LVO (RBC) [Entitic mass]30.6 pg25.9-34.0[facility] MiamisburgMCHC Auto (RBC) [Mass/Vol]Ordered By: Sanket Hammer on 07-18-8756TTJF (RBC) [Mass/Vol]33.6 g/dL29.9-35.2FRegency Hospital ToledoMCV Auto (RBC) [Entitic vol]Ordered By: Sanket Hammer on 44-74-0844YUA (RBC) [Entitic vol]91.2 fL80.0-94.0[facility]burgNo Panel Informationon 12-30-2024 Interpretation and review of laboratory resultsAbnormalNOMS HealthcareCLINISYNSAINT LOUIS UNIVERSITY HOSPITALS HealthcareNo Panel InformationOrdered By: Sanket Hammer on 39-97-2915Kzxogm 35.10 ng/mL8.60-58.90[facility] MiamisburgPhosphorus Level4.5 mg/dL 2.6-4.7FRegency Hospital ToledoUrine Occult BloodNegativeNEGATIVE [facility] MiamisburgUrine Random Cfgxyzmigt149.05 mg/dL20.00-300.00 [facility] MiamisburgPlatelet mean volume Auto (Bld) [Entitic vol] Ordered By: Sanket Hammer on 59-16-4897Jzhywpya mean volume (Bld) [Entitic vol] 9.7 fL9.5-13.5FRegency Hospital ToledoPlatelets Auto (Bld) [#/Vol] Ordered By: Sanket Hammer on 78-07-7558Erzsoysge (Bld) [#/Vol]338 10 3/yM030-184 [facility] MiamisburgRBC Auto (Bld) [#/Vol]Ordered By: Sanket Hammer on 65-13-6982BJX (Bld) [#/Vol]3.07 10 6/uLLow4.70-6.10Knox Community Hospitalerum or plasma anion gap determinationOrdered By: Sanket Hammer on 72-38-5138Nwyya gap [Moles/Vol]9.3 mmol/LFRegency Hospital ToledoUrine protein/creatinine ratioOrdered By: Sanket Hammer on 64-75-7093Eppfleg/Creatinine (U) [Ratio]0.53[facility] MiamisburgBASIC METABOLIC PANELon 05-70-8803Bwnje gap [Moles/Vol]11 mmol/LNormal5-15[facility] Comment on above:Performed By: #### PHOS #### [facility] ([facility]) [address] [place] [address] VIRCalcium [Mass/Vol]8.7 mg/dLNormal8.5-10.5PSelect Medical Specialty Hospital - Cincinnati NorthComment on above:Performed By: #### PHOS #### [facility] ([facility]) [address] [place] [address] VIRChloride [Moles/Vol]106 mmol/OZdybcw23-709KtjNhhcsd [place] HospitalComment on above:Performed By: #### PHOS #### [facility] ([facility]) [address] [place] [address] VIRCO2 [Moles/Vol]22 mmol/HPiocsx95-15PfkAcwovkSelect Medical Specialty Hospital [facility] North Comment on above:Performed By: #### PHOS #### [facility] ([facility]) [address] [place] [address] VIRCreatinine [Mass/Vol]1.43 mg/dLHigh0.60-1.30ProMetrohealth Cleveland Heights Medical CenterComment on above:Result Comment: METHOD TRACEABLE TO IDMS STANDARD Performed By: #### PHOS #### [facility] ([facility]) [address] [place] [address] VIRGFR/1.73 sq M.predicted among non-blacks MDRD (S/P/Bld) [Vol rate/Area]52 mL/min/{1.73_m2}Low>=60ProUc [facility] HospitalComment on above: Result Comment: Reported eGFR is based on the CKD-EPI 2020 equation that does not use a race coefficient.Performed By: #### PHOS #### [facility] ([facility]) [address] [place] [address] VIRGlucose [Mass/Vol]137 mg/oLVhcl45-92PfkFbmefq [place] HospitalComment on above:Performed By: #### PHOS #### [facility] ([facility]) [address] [place] [address] VIRPotassium [Moles/Vol]4.0 mmol/LNormal3.5-5.0Pro[facility] HospitalComment on above:Performed By: #### PHOS #### [facility] ([facility]) [address] [place] [address] VIRSodium [Moles/Vol]139 mmol/SBkqbkr068-127TjfDwxkfa [place] HospitalComment on above:Performed By: #### PHOS #### [facility] ([facility]) [address] [place] [address] VIRUrea nitrogen [Mass/Vol]27 mg/dLNormal5-27Pro[facility] HospitalComment on above:Performed By: #### PHOS #### [facility] ([facility]) [address] [place] [address] VIRBEDSIDE GLUCOSEon 15-95-3631Veacfwz [Mass/Vol]133 mg/dLHigh 65-99Pro[facility] HospitalComment on above:Performed By: #### PHOS #### [facility] ([facility]) [address] [place] [address] VIRGlucose [Mass/Vol]144 mg/iYUjzu04-94AajZidevd Stafford HospitalComment on above:Performed By: #### PHOS #### [facility] ([facility]) [address] [place] [address] VIRGlucose [Mass/Vol]134 mg/gJVrcw49-25BccYmlbcc [place] HospitalComment on above:Performed By: #### PHOS #### [facility] ([facility]) [address] [place] [address] VIRCBC WITH AUTO DIFFERENTIALon 08-95-9817JRUJXDVRJ ABSOLUTE COUNT (10*3/UL) BY AUTOMATED COUNT0.1 10*3/uLNormal0.0-0.2ProMedica [facility]ling HospitalComment on above:Performed By: #### MG #### [facility] ([facility]) [address] [place] [address] VIRBASOPHILS RELATIVE PERCENT BY AUTOMATED COUNT0.7 %Normal [facility] HospitalComment on above:Performed By: #### MG #### [facility] ([facility]) [address] [place] [address] VIRCELLAVISION DIFFERENTIAL TYPEAUTOMATED DIFFERENTIALNormal [facility] Health SystemComment on above:Performed By: #### MG #### [facility] ([facility]) [address] [place] [address] VIREosinophils (Bld) [#/Vol]0.1 10*3/uLNormal0.0-0.4ProWooster Community Hospitalca Darling HospitalComment on above:Performed By: #### MG #### [facility] ([facility]) [address] [place] [address] VIREOSINOPHILS RELATIVE PERCENT BY AUTOMATED COUNT0.6 %Normal [facility] HospitalComment on above:Performed By: #### MG #### [facility] ([facility]) [address] [place] [address] VIRErythrocyte distribution width (RBC) [Ratio]12.9 %Normal 11.5-15ProWooster Community Hospitalca Darling HospitalComment on above:Performed By: #### MG #### [facility] ([facility]) [address] [place] [address] VIRHematocrit (Bld) [Volume fraction]28.0 %Rxl48-45MsgUprjfw Darling HospitalComment on above:Performed By: #### MG #### [facility] ([facility]) [address] [place] [address] VIRHemoglobin (Bld) [Mass/Vol]9.5 g/cQUjn28-14ErqYpknse Darling HospitalComment on above:Performed By: #### MG #### [facility] ([facility]) [address] [place] [address] VIRLYMPHOCYTES ABSOLUTE COUNT (10*3/UL) BY AUTOMATED COUNT1.8 10*3/uLNormal1.0-3.5ProMedica Darling HospitalComment on above:Performed By: #### MG #### [facility] ([facility]) [address] [place] [address] VIRLYMPHOCYTES RELATIVE PERCENT BY AUTOMATED COUNT14.7 %Normal [facility] HospitalComment on above:Performed By: #### MG #### [facility] ([facility]) [address] [place] [address] VIRMCH (RBC) [Entitic mass]30.2 vpEszojz25-13FwaStbghj Darling HospitalComment on above:Performed By: #### MG #### [facility] ([facility]) [address] [place] [address] VIRMCHC (RBC) [Mass/Vol]33.9 g/mITbifqn41-33OxuDihove Darling HospitalComment on above:Performed By: #### MG #### [facility] ([facility]) [address] [place] [address] VIRMCV (RBC) [Entitic vol]89 zDJccfmu47-953DqeUdmqgz Stafford HospitalComment on above:Performed By: #### MG #### [facility] ([facility]) [address] [place] [address] VIRMONOCYTES ABSOLUTE COUNT (10*3/UL) BY AUTOMATED COUNT1.3 10*3/uLHigh0.0-0.9Pro[facility] HospitalComment on above:Performed By: #### MG #### [facility] ([facility]) [address] [place] [address] VIRMONOCYTES RELATIVE PERCENT BY AUTOMATED COUNT10.3 %Normal ProMThe [facility] HospitalComment on above:Performed By: #### MG #### [facility] ([facility]) [address] [place] [address] VIRNEUTROPHILS ABSOLUTE COUNT BY AUTOMATED COUNT8.9 10*3/uLHigh 1.5-6.6Pro[facility] HospitalComment on above:Performed By: #### MG #### [facility] ([facility]) [address] [place] [address] VIRNEUTROPHILS RELATIVE PERCENT BY AUTOMATED COUNT73.7 %Normal ProMThe [facility] HospitalComment on above:Performed By: #### MG #### [facility] ([facility]) [address] [place] [address] VIRPlatelet mean volume (Bld) [Entitic vol]8.4 fLNormal7-12 ProMThe [facility] HospitalComment on above:Performed By: #### MG #### [facility] ([facility]) [address] [place] [address] VIRPlatelets (Bld) [#/Vol]299 10*3/aQArhdut950-296AskRkyutw [place] HospitalComment on above:Performed By: #### MG #### [facility] ([facility]) [address] [place] [address] VIRRBC COUNT3.14 X10E12/LLow4.1-5.7[facility] Comment on above:Performed By: #### MG #### [facility] ([facility]) [address] [place] [address] VIRWBC (Bld) [#/Vol]12.1 10*3/uLHigh4-11[facility] SystemComment on above:Performed By: #### MG #### [facility] ([facility]) [address] [place] [address] VIRBASIC METABOLIC PANELon [id number] gap [Moles/Vol]10 mmol/LNormal5-15ProMetrohealth [facility] Heights Medical CenterComment on above:Performed By: #### MG #### [facility] ([facility]) [address] [place] [address] VIRCalcium [Mass/Vol]8.6 mg/dLNormal8.5-10.5PSelect Medical Specialty Hospital - [facility] NorthComment on above:Performed By: #### MG #### [facility] ([facility]) [address] [place] [address] VIRChloride [Moles/Vol]105 mmol/WFklvbo90-321RuoXzzmrm [place] HospitalComment on above:Performed By: #### MG #### [facility] ([facility]) [address] [place] [address] VIRCO2 [Moles/Vol]23 mmol/ICotqyr63-54PafXwmjuxSelect Medical [facility]ty [facility] Comment on above:Performed By: #### MG #### [facility] ([facility]) [address] [place] [address] VIRCreatinine [Mass/Vol]1.40 mg/dLHigh0.60-1.30Tr[facility] Health SystemComment on above:Result Comment: METHOD TRACEABLE TO IDMS STANDARD Performed By: #### MG #### [facility] ([facility]) [address] [place] [address] VIRGFR/1.73 sq M.predicted among non-blacks MDRD (S/P/Bld) [Vol rate/Area]53 mL/min/{1.73_m2}Low>=60Pro[facility] Stafford HospitalComment on above: Result Comment: Reported eGFR is based on the CKD-EPI 2020 equation that does not use a race coefficient.Performed By: #### MG #### [facility] ([facility]) [address] [place] [address] VIRGlucose [Mass/Vol]130 mg/jGVobk55-64GjqUqrgkl [facility] HospitalComment on above:Performed By: #### MG #### [facility] ([facility]) [address] [place] [address] VIRPotassium [Moles/Vol]4.0 mmol/LNormal3.5-5.0Pro[facility]ica [facility]ling HospitalComment on above:Performed By: #### MG #### [facility] ([facility]) [address] [place] [address] VIRSodium [Moles/Vol]138 mmol/TXfszlq046-999WhaBdyzqt [facility] HospitalComment on above:Performed By: #### MG #### [facility] ([facility]) [address] [place] [address] VIRUrea nitrogen [Mass/Vol]24 mg/dLNormal5-27Pro[facility]ica [facility]ling HospitalComment on above:Performed By: #### MG #### [facility] ([facility]) [address] [place] [address] VIRBEDSIDE GLUCOSEon 91-60-6893Zokkzzx [Mass/Vol]138 mg/dLHigh 65-99ProMedica [facility]ling HospitalComment on above:Performed By: #### MG #### [facility] ([facility]) [address] [place] [address] VIRGlucose [Mass/Vol]147 mg/cMPnaw35-62AbcHdhewz [facility] HospitalComment on above:Performed By: #### MG #### [facility] ([facility]) [address] [place] [address] VIRGlucose [Mass/Vol]124 mg/nIZdpp44-93BqtQrazop [facility] HospitalComment on above:Performed By: #### MG #### [facility] ([facility]) [address] [place] [address] VIRGlucose [Mass/Vol]157 mg/jIQeqn77-40XpnNwtrdw [facility] HospitalComment on above:Performed By: #### MG #### [facility] ([facility]) [address] [place] [address] VIRGlucose [Mass/Vol]146 mg/lPAung51-44PviUtubfp [place] HospitalComment on above:Performed By: #### MG #### [facility] ([facility]) [address] [place] [address] VIRCBC WITH AUTO DIFFERENTIALon 54-04-0725WXLMNYYCN ABSOLUTE COUNT (10*3/UL) BY AUTOMATED COUNT0.1 10*3/uLNormal0.0-0.2ProMedBerger HospitalComment on above:Performed By: #### MG #### [facility] ([facility]) [address] [place] [address] VIRBASOPHILS RELATIVE PERCENT BY AUTOMATED COUNT0.4 %Normal [facility] SystemComment on above:Performed By: #### MG #### [facility] ([facility]) [address] [place] [address] VIRCELLAVISION DIFFERENTIAL TYPEAUTOMATED DIFFERENTIALNormal ProMWyandot Memorial HospitalComment on above:Performed By: #### MG #### [facility] ([facility]) [address] [place] [address] VIREosinophils (Bld) [#/Vol]0.1 10*3/uLNormal0.0-0.4ProWooster Community Hospitalca [facility]ling HospitalComment on above:Performed By: #### MG #### [facility] ([facility]) [address] [place] [address] VIREOSINOPHILS RELATIVE PERCENT BY AUTOMATED COUNT0.7 %Normal [facility]ling HospitalComment on above:Performed By: #### MG #### [facility] ([facility]) [address] [place] [address] VIRErythrocyte distribution width (RBC) [Ratio]12.8 %Normal 11.5-15ProMedica [facility]ling HospitalComment on above:Performed By: #### MG #### [facility] ([facility]) [address] [place] [address] VIRHematocrit (Bld) [Volume fraction]27.2 %Zmd04-84OmeMdoayg [facility] HospitalComment on above:Performed By: #### MG #### [facility] ([facility]) [address] [place] [address] VIRHemoglobin (Bld) [Mass/Vol]9.4 g/kLBqs97-46GjfCctcrr [facility] HospitalComment on above:Performed By: #### MG #### [facility] ([facility]) [address] [place] [address] VIRLYMPHOCYTES ABSOLUTE COUNT (10*3/UL) BY AUTOMATED COUNT2.4 10*3/uLNormal1.0-3.5ProMedica [facility]ling HospitalComment on above:Performed By: #### MG #### [facility] ([facility]) [address] [place] [address] VIRLYMPHOCYTES RELATIVE PERCENT BY AUTOMATED COUNT18.4 %Normal [facility] HospitalComment on above:Performed By: #### MG #### [facility] ([facility]) [address] [place] [address] VIRMCH (RBC) [Entitic mass]30.1 drXnldyb60-92PevScxhau [facility] HospitalComment on above:Performed By: #### MG #### [facility] ([facility]) [address] [place] [address] VIRMCHC (RBC) [Mass/Vol]34.6 g/ePWsctre47-51FyaAwuqwg [place] HospitalComment on above:Performed By: #### MG #### [facility] ([facility]) [address] [place] [address] VIRMCV (RBC) [Entitic vol]87 wDUgvivl13-908RurOzsnzk [place] HospitalComment on above:Performed By: #### MG #### [facility] ([facility]) [address] [place] [address] VIRMONOCYTES ABSOLUTE COUNT (10*3/UL) BY AUTOMATED COUNT1.4 10*3/uLHigh0.0-0.9Tr[facility] Health SystemComment on above:Performed By: #### MG #### [facility] ([facility]) [address] [place] [address] VIRMONOCYTES RELATIVE PERCENT BY AUTOMATED COUNT10.7 %Normal [facility] HospitalComment on above:Performed By: #### MG #### [facility] ([facility]) [address] [place] [address] VIRNEUTROPHILS ABSOLUTE COUNT BY AUTOMATED COUNT9.2 10*3/uLHigh 1.5-6.6[facility] Health SystemComment on above:Performed By: #### MG #### [facility] ([facility]) [address] [place] [address] VIRNEUTROPHILS RELATIVE PERCENT BY AUTOMATED COUNT69.8 %Normal [facility] HospitalComment on above:Performed By: #### MG #### [facility] ([facility]) [address] [place] [address] VIRPlatelet mean volume (Bld) [Entitic vol]7.9 fLNormal7-12 [facility] HospitalComment on above:Performed By: #### MG #### [facility] ([facility]) [address] [place] [address] VIRPlatelets (Bld) [#/Vol]297 10*3/jYVkdpyw650-859ZvnEaumym [facility] HospitalComment on above:Performed By: #### MG #### [facility] ([facility]) [address] [place] [address] VIRRBC COUNT3.12 X10E12/LLow4.1-5.7ProWooster Community Hospitalca [facility] Comment on above:Performed By: #### MG #### [facility] ([facility]) [address] [place] [address] VIRWBC (Bld) [#/Vol]13.2 10*3/uLHigh4-11[facility] HospitalComment on above:Performed By: #### MG #### [facility] ([facility]) [address] [place] [address] VIRAPTTon 15-19-6504fLFW Coag (Bld) [Time]31 tNemyun20-42 [facility] HospitalComment on above:Performed By: #### CBCA #### [facility] ([facility]) [address] [place] [address] VIRBASIC METABOLIC PANELon 61-32-9459Jmpco gap [Moles/Vol]8 mmol/LNormal5-15[facility] HospitalComment on above:Performed By: #### CBCA #### [facility] ([facility]) [address] [place] [address] VIRCalcium [Mass/Vol]9.1 mg/dLNormal8.5-10.5[facility] HospitalComment on above:Performed By: #### CBCA #### [facility] ([facility]) [address] [place] [address] VIRChloride [Moles/Vol]106 mmol/JUjmpjm44-523NjtYcwugh [facility] HospitalComment on above:Performed By: #### CBCA #### [facility] ([facility]) [address] [place] [address] VIRCO2 [Moles/Vol]25 mmol/KBplxjy49-84YyyGsxwit [facility] Comment on above:Performed By: #### CBCA #### [facility] ([facility]) [address] [place] [address] VIRCreatinine [Mass/Vol]1.43 mg/dLHigh0.60-1.30[facility] HospitalComment on above:Result Comment: METHOD TRACEABLE TO IDMS STANDARD Performed By: #### CBCA #### [facility] ([facility]) [address] [place] [address] VIRGFR/1.73 sq M.predicted among non-blacks MDRD (S/P/Bld) [Vol rate/Area]52 mL/min/{1.73_m2}Low>=60ProMetrohealth [facility] Heights Medical CenterComment on above: Result Comment: Reported eGFR is based on the CKD-EPI 2020 equation that does not use a race coefficient.Performed By: #### CBCA #### [facility] ([facility]) [address] [place] [address] VIRGlucose [Mass/Vol]125 mg/wKEvcg22-28SloSdshva [place] HospitalComment on above:Performed By: #### CBCA #### [facility] ([facility]) [address] [place] [address] VIRPotassium [Moles/Vol]4.0 mmol/LNormal3.5-5.0[facility] HospitalComment on above:Performed By: #### CBCA #### [facility] ([facility]) [address] [place] [address] VIRSodium [Moles/Vol]139 mmol/WMatrto226-251HioFyodeb [place] HospitalComment on above:Performed By: #### CBCA #### [facility] ([facility]) [address] [place] [address] VIRUrea nitrogen [Mass/Vol]22 mg/dLNormal5-27[facility] HospitalComment on above:Performed By: #### CBCA #### [facility] ([facility]) [address] [place] [address] VIRBEDSIDE GLUCOSEon 31-28-7125Mcnmxkn [Mass/Vol]135 mg/dLHigh 65-99[facility] HospitalComment on above:Performed By: #### MG #### [facility] ([facility]) [address] [place] [address] VIRGlucose [Mass/Vol]147 mg/dZZhlk77-46QzmYwmonv [facility] HospitalComment on above:Performed By: #### MG #### [facility] ([facility]) [address] [place] [address] VIRGlucose [Mass/Vol]157 mg/qREkou71-59TynGlwwjx [place] HospitalComment on above:Performed By: #### CBCA #### [facility] ([facility]) [address] [place] [address] VIRGlucose [Mass/Vol]150 mg/oEQebi22-78FywRyeucu [place] HospitalComment on above:Performed By: #### CBCA #### [facility] ([facility]) [address] [place] [address] VIRCBC WITH AUTO DIFFERENTIALon 37-25-2062KGDICKTHG ABSOLUTE COUNT (10*3/UL) BY AUTOMATED COUNT0.1 10*3/uLNormal0.0-0.2[facility] SystemComment on above:Performed By: #### CBCA #### [facility] ([facility]) [address] [place] [address] VIRBASOPHILS RELATIVE PERCENT BY AUTOMATED COUNT0.8 %Normal [facility] SystemComment on above:Performed By: #### CBCA #### [facility] ([facility]) [address] [place] [address] VIRCELLAVISION DIFFERENTIAL TYPEAUTOMATED DIFFERENTIALNormal [facility] HospitalComment on above:Performed By: #### CBCA #### [facility] ([facility]) [address] [place] [address] VIREosinophils (Bld) [#/Vol]0.3 10*3/uLNormal0.0-0.4[facility] HospitalComment on above:Performed By: #### CBCA #### [facility] ([facility]) [address] [place] [address] VIREOSINOPHILS RELATIVE PERCENT BY AUTOMATED COUNT2.3 %Normal [facility] HospitalComment on above:Performed By: #### CBCA #### [facility] ([facility]) [address] [place] [address] VIRErythrocyte distribution width (RBC) [Ratio]12.9 %Normal 11.5-15[facility] HospitalComment on above:Performed By: #### CBCA #### [facility] ([facility]) [address] [place] [address] VIRHematocrit (Bld) [Volume fraction]28.6 %Mil11-34YcqObcacl [facility] HospitalComment on above:Performed By: #### CBCA #### [facility] ([facility]) [address] [place] [address] VIRHemoglobin (Bld) [Mass/Vol]9.7 g/bADlk24-11EtqHuuwjt [facility] HospitalComment on above:Performed By: #### CBCA #### [facility] ([facility]) [address] [place] [address] VIRLYMPHOCYTES ABSOLUTE COUNT (10*3/UL) BY AUTOMATED COUNT3.0 10*3/uLNormal1.0-3.5[facility] HospitalComment on above:Performed By: #### CBCA #### [facility] ([facility]) [address] [place] [address] VIRLYMPHOCYTES RELATIVE PERCENT BY AUTOMATED COUNT27.2 %Normal [facility] HospitalComment on above:Performed By: #### CBCA #### [facility] ([facility]) [address] [place] [address] VIRMCH (RBC) [Entitic mass]30.3 wzGisxtf76-80GxjPhybqj [facility] HospitalComment on above:Performed By: #### CBCA #### [facility] ([facility]) [address] [place] [address] VIRMCHC (RBC) [Mass/Vol]33.8 g/nTKdfwlu74-77WqcClhtqw [facility] HospitalComment on above:Performed By: #### CBCA #### [facility] ([facility]) [address] [place] [address] VIRMCV (RBC) [Entitic vol]90 jRUhgxgi91-980ZkqXkfuld [facility] HospitalComment on above:Performed By: #### CBCA #### [facility] ([facility]) [address] [place] [address] VIRMONOCYTES ABSOLUTE COUNT (10*3/UL) BY AUTOMATED COUNT1.1 10*3/uLHigh0.0-0.9[facility] HospitalComment on above:Performed By: #### CBCA #### [facility] ([facility]) [address] [place] [address] VIRMONOCYTES RELATIVE PERCENT BY AUTOMATED COUNT10.1 %Normal [facility] HospitalComment on above:Performed By: #### CBCA #### [facility] ([facility]) [address] [place] [address] VIRNEUTROPHILS ABSOLUTE COUNT BY AUTOMATED COUNT6.5 10*3/uL Normal1.5-6.6[facility] HospitalComment on above:Performed By: #### CBCA #### [facility] ([facility]) [address] [place] [address] VIRNEUTROPHILS RELATIVE PERCENT BY AUTOMATED COUNT59.6 %Normal [facility] HospitalComment on above:Performed By: #### CBCA #### [facility] ([facility]) [address] [place] [address] VIRPlatelet mean volume (Bld) [Entitic vol]8.2 fLNormal7-12 [facility] HospitalComment on above:Performed By: #### CBCA #### [facility] ([facility]) [address] [place] [address] VIRPlatelets (Bld) [#/Vol]316 10*3/cXKhclbb901-275ZpgQdyjaa [facility] HospitalComment on above:Performed By: #### CBCA #### [facility] ([facility]) [address] [place] [address] VIRRBC COUNT3.19 X10E12/LLow4.1-5.7[facility] Hospital Comment on above:Performed By: #### CBCA #### [facility] ([facility]) [address] [place] [address] VIRWBC (Bld) [#/Vol]10.9 10*3/uLNormal4-11ProWooster Community Hospitalca [facility] HospitalComment on above:Performed By: #### CBCA #### [facility] ([facility]) [address] [place] [address] VIRBASIC METABOLIC PANELon 08-58-9139Nerfv gap [Moles/Vol]9 mmol/LNormal5-15[facility] HospitalComment on above:Performed By: #### BMP #### [facility] ([facility]) [address] [place] [address] VIRCalcium [Mass/Vol]9.0 mg/dLNormal8.5-10.5[facility] HospitalComment on above:Performed By: #### BMP #### [facility] ([facility]) [address] [place] [address] VIRChloride [Moles/Vol]106 mmol/BCyivvg22-852HxdTzypbb [facility] HospitalComment on above:Performed By: #### BMP #### [facility] ([facility]) [address] [place] [address] VIRCO2 [Moles/Vol]24 mmol/IRdyhtm33-63YygTlmfht [facility] Comment on above:Performed By: #### BMP #### [facility] ([facility]) [address] [place] [address] VIRCreatinine [Mass/Vol]1.56 mg/dLHigh0.60-1.30ProWooster Community Hospitalca [facility] HospitalComment on above:Result Comment: METHOD TRACEABLE TO IDMS STANDARD Performed By: #### BMP #### [facility] ([facility]) [address] [place] [address] VIRGFR/1.73 sq M.predicted among non-blacks MDRD (S/P/Bld) [Vol rate/Area]47 mL/min/{1.73_m2}Low>=60ProWooster Community Hospitalca [facility] SystemComment on above: Result Comment: Reported eGFR is based on the CKD-EPI 2020 equation that does not use a race coefficient.Performed By: #### BMP #### [facility] ([facility]) [address] [place] [address] VIRGlucose [Mass/Vol]135 mg/iNPxof11-85XrrKemwzi [facility] HospitalComment on above:Performed By: #### BMP #### [facility] ([facility]) [address] [place] [address] VIRPotassium [Moles/Vol]3.7 mmol/LNormal3.5-5.0ProWooster Community Hospitalca [facility] HospitalComment on above:Performed By: #### BMP #### [facility] ([facility]) [address] [place] [address] VIRSodium [Moles/Vol]139 mmol/ZMuhcjd086-467YleEebyvk [facility] HospitalComment on above:Performed By: #### BMP #### [facility] ([facility]) [address] [place] [address] VIRUrea nitrogen [Mass/Vol]24 mg/dLNormal5-27[facility] HospitalComment on above:Performed By: #### BMP #### [facility] ([facility]) [address] [place] [address] VIRBEDSIDE GLUCOSEon 13-96-1532Sdlpxde [Mass/Vol]142 mg/dLHigh 65-99[facility] HospitalComment on above:Performed By: #### CBCA #### [facility] ([facility]) [address] [place] [address] VIRGlucose [Mass/Vol]145 mg/pICrzm08-57VsbPefxmt Darling HospitalComment on above:Performed By: #### CBCA #### [facility] ([facility]) [address] [place] [address] VIRGlucose [Mass/Vol]169 mg/rTCgdy71-47NcjRxivij [facility]ling HospitalComment on above:Performed By: #### CBCA #### [facility] ([facility]) [address] [place] [address] VIRGlucose [Mass/Vol]159 mg/gRFgkr04-34DjdDumhgb Darling HospitalComment on above:Performed By: #### CBCA #### [facility] ([facility]) [address] [place] [address] VIRCBC WITH AUTO DIFFERENTIALon [id number] ABSOLUTE COUNT (10*3/UL) BY AUTOMATED COUNT0.1 10*3/uLNormal0.0-0.2Pro[facility]ling HospitalComment on above:Performed By: #### CBCA #### [facility] ([facility]) [address] [place] [address] VIRBASOPHILS RELATIVE PERCENT BY AUTOMATED COUNT0.6 %Normal [facility]ling HospitalComment on above:Performed By: #### CBCA #### [facility] ([facility]) [address] [place] [address] VIRCELLAVISION DIFFERENTIAL TYPEAUTOMATED DIFFERENTIALNormal [facility] HospitalComment on above:Performed By: #### CBCA #### [facility] ([facility]) [address] [place] [address] VIREosinophils (Bld) [#/Vol]0.1 10*3/uLNormal0.0-0.4ProWooster Community Hospitalca Darling HospitalComment on above:Performed By: #### CBCA #### [facility] ([facility]) [address] [place] [address] VIREOSINOPHILS RELATIVE PERCENT BY AUTOMATED COUNT0.7 %Normal [facility] HospitalComment on above:Performed By: #### CBCA #### [facility] ([facility]) [address] [place] [address] VIRErythrocyte distribution width (RBC) [Ratio]13.5 %Normal 11.5-15[facility] HospitalComment on above:Performed By: #### CBCA #### [facility] ([facility]) [address] [place] [address] VIRHematocrit (Bld) [Volume fraction]28.7 %Isp66-38NthFdsqtf [place] HospitalComment on above:Performed By: #### CBCA #### [facility] ([facility]) [address] [place] [address] VIRHemoglobin (Bld) [Mass/Vol]9.8 g/fYTvw44-86UqzGsnrng [place] HospitalComment on above:Performed By: #### CBCA #### [facility] [facility] ([facility]) [address] [place] [address] VIRLYMPHOCYTES ABSOLUTE COUNT (10*3/UL) BY AUTOMATED COUNT2.6 10*3/uLNormal1.0-3.5ProMedica Darling HospitalComment on above:Performed By: #### CBCA #### [facility] ([facility]) [address] [place] [address] VIRLYMPHOCYTES RELATIVE PERCENT BY AUTOMATED COUNT21.9 %Normal [facility] Stafford HospitalComment on above:Performed By: #### CBCA #### [facility] ([facility]) [address] [place] [address] VIRMCH (RBC) [Entitic mass]30.1 rxJhyblh32-08PdhRejjwu Stafford HospitalComment on above:Performed By: #### CBCA #### [facility] ([facility]) [address] [place] [address] VIRMCHC (RBC) [Mass/Vol]34.3 g/xLIyfsli23-98CcqZbccix Stafford HospitalComment on above:Performed By: #### CBCA #### [facility] ([facility]) [address] [place] [address] VIRMCV (RBC) [Entitic vol]88 sVVdfnva08-609FtaCfljnw Stafford HospitalComment on above:Performed By: #### CBCA #### [facility] ([facility]) [address] [place] [address] VIRMONOCYTES ABSOLUTE COUNT (10*3/UL) BY AUTOMATED COUNT1.0 10*3/uLHigh0.0-0.9ProMedica Stafford HospitalComment on above:Performed By: #### CBCA #### [facility] ([facility]) [address] [place] [address] VIRMONOCYTES RELATIVE PERCENT BY AUTOMATED COUNT8.5 %Normal [facility] Stafford HospitalComment on above:Performed By: #### CBCA #### [facility] ([facility]) [address] [place] [address] VIRNEUTROPHILS ABSOLUTE COUNT BY AUTOMATED COUNT8.2 10*3/uLHigh 1.5-6.6ProMedica Stafford HospitalComment on above:Performed By: #### CBCA #### [facility] ([facility]) [address] [place] [address] VIRNEUTROPHILS RELATIVE PERCENT BY AUTOMATED COUNT68.3 %Normal [facility] SystemComment on above:Performed By: #### CBCA #### [facility] ([facility]) [address] [place] [address] VIRPlatelet mean volume (Bld) [Entitic vol]8.4 fLNormal7-12 ProMThe [facility] HospitalComment on above:Performed By: #### CBCA #### [facility] ([facility]) [address] [place] [address] VIRPlatelets (Bld) [#/Vol]300 10*3/wZJwnyfq422-106EskAimmmd [place] HospitalComment on above:Performed By: #### CBCA #### [facility] ([facility]) [address] [place] [address] VIRRBC COUNT3.26 X10E12/LLow4.1-5.7[facility] Hospital Comment on above:Performed By: #### CBCA #### [facility] ([facility]) [address] [place] [address] VIRWBC (Bld) [#/Vol]12.0 10*3/uLHigh4-11ProMetrohealth Cleveland Heights Medical CenterComment on above:Performed By: #### CBCA #### [facility] ([facility]) [address] [place] [address] VIRLIPID PROFILEon 35-11-8344Owgsmfoydwg [Mass/Vol]109 mg/dLLow 150-200[facility] HospitalComment on above:Order Comment: fastingPerformed By: #### LIPR #### [facility] ([facility]) [address] [place] [address] VIRCholesterol in HDL [Mass/Vol]29 mg/dLLow>39[facility] HospitalComment on above:Order Comment: fastingResult Comment: HDL <40 mg/dL - High Risk HDL > or = 40mg/dL- Desirable HDL >60 mg/dL - Negative RiskPerformed By: #### LIPR #### [facility] ([facility]) [address] [place] [address] VIRCholesterol in LDL [Mass/Vol]27 mg/dLNormal<130[facility] HospitalComment on above:Order Comment: fastingResult Comment: LDL <100 mg/dL - Desirable LDL >160 mg/dL - High RiskPerformed By: #### LIPR #### [facility] ([facility]) [address] [place] [address] VIRCHOLESTEROL:HDL3.1Cfgusv6.0-5.0[facility] Hospital Comment on above:Order Comment: fastingPerformed By: #### LIPR #### [facility] ([facility]) [address] [place] [address] VIRTriglyceride [Mass/Vol]263 mg/lVWdmd86-691QjaNzusfj [place] HospitalComment on above:Order Comment: fastingPerformed By: #### LIPR #### [facility] ([facility]) [address] [place] [address] VIRVERY LOW UCCBFRXUVJD53 mg/dLHigh0-30ProMetrohealth Cleveland Heights Medical CenterComment on above:Order Comment: fastingPerformed By: #### LIPR #### [facility] ([facility]) [address] [place] [address] VIRPOTASSIUMon 11-20-0806Sdcnmhfrq [Moles/Vol]4.1 mmol/LNormal 3.5-5.0ProMetrohealth Cleveland Heights Medical CenterComment on above:Performed By: #### CBCA #### [facility] ([facility]) [address] [place] [address] VIRACETAMINOPHEN LEVELon 39-13-9118Pjqcxkbtkqywq [Mass/Vol]3.2 ug/mLLow10.0-30.0ProWooster Community Hospitalca [place] HospitalComment on above:Order Comment: Reference ranges are for therapeutic limits.Performed By: #### BEDG #### [facility] ([address] [place] [address] VIRAMMONIAon 08-07-1574Zlhfhle (P) [Moles/Vol]17 umol/LNormal 11-35[facility] Anne HospitalComment on above:Performed By: #### BEDG #### [facility] ([address] [place] [address] VIRAPTTon 12-52-4431gNSX Coag (Bld) [Time]31 zJllxxe86-[address] [facility] HospitalComment on above:Performed By: #### PTT #### [facility] ([address] [place] [address] VIRBASIC METABOLIC PANELon 76-40-9206Bqaal gap [Moles/Vol]11 mmol/LNormal5-15[facility] Anne HospitalComment on above:Performed By: #### BMP #### [facility] ([address] [place] [address] VIRCalcium [Mass/Vol]8.7 mg/dLNormal8.5-10.5PAvita Health System Ontario HospitalComment on above:Performed By: #### BMP #### [facility] ([address] [place] [address] VIRChloride [Moles/Vol]103 mmol/CHpkyxe39-212QoqRglskn [place] HospitalComment on above:Performed By: #### BMP #### [facility] ([address] [place] [address] VIRCO2 [Moles/Vol]23 mmol/ABuwkbi44-86XbiJzarwcAvita Health System Ontario HospitalComment on above:Performed By: #### BMP #### [facility] ([address] [place] [address] VIRCreatinine [Mass/Vol]1.92 mg/dLHigh0.70-1.20ProMemorial Hermann–Texas Medical CenterComment on above:Result Comment: METHOD TRACEABLE TO IDMS STANDARDPerformed By: #### BMP #### [facility] ([address] [place] [address] VIRGFR/1.73 sq M.predicted among non-blacks MDRD (S/P/Bld) [Vol rate/Area]37 mL/min/{1.73_m2}Low>=60ProMemorial Hermann–Texas Medical CenterComment on above:Result Comment: eGFR not reported due to non-numeric value for Creatinine. Reported eGFR is based on the CKD-EPI 2020 equation that does not use a race coefficient.Performed By: #### BMP #### [facility] ([address] [place] [address] VIRGlucose [Mass/Vol]113 mg/uNOyvl15-21YesCumujuMemorial Hermann–Texas Medical CenterComment on above:Performed By: #### BMP #### [facility] ([address] [address] VIRPotassium [Moles/Vol]3.1 mmol/LLow3.5-5.0ProMemorial Hermann–Texas Medical CenterComment on above:Performed By: #### BMP #### [address] [place] [address] VIRSodium [Moles/Vol]137 mmol/GRdhmfs502-841KdkDzxoqu [place] HospitalComment on above:Performed By: #### BMP #### [facility] ([address] [address] VIRUrea nitrogen [Mass/Vol]31 mg/dLPlateau Medical Center5-27ProMemorial Hermann–Texas Medical CenterComment on above:Performed By: #### BMP #### [facility] ([address] [place] [address] VIRBEDSIDE GLUCOSEon 85-83-0643Xfwpdvt [Mass/Vol]198 mg/dLHigh 65-99[facility] HospitalComment on above:Performed By: #### BEDG #### [facility] ([facility]) [address] [place] [address] VIRGlucose [Mass/Vol]148 mg/rKFiou15-49BfkXzusix [place] HospitalComment on above:Performed By: #### BEDG #### [facility] ([facility]) [address] [place] [address] VIRGlucose [Mass/Vol]118 mg/xVNwau35-91AsfSkncudMemorial Hermann–Texas Medical CenterComment on above:Performed By: #### BEDG #### [facility] ([address] [address] VIRCBC WITH AUTO DIFFERENTIALon 09-43-7303WVLIHAGOK ABSOLUTE COUNT (10*3/UL) BY AUTOMATED COUNT0.1 10*3/uLNormal0.0-0.2ProMedBerger HospitalComment on above:Performed By: #### CBCA #### [facility] ([facility]) [address] [place] [address] VIRBASOPHILS RELATIVE PERCENT BY AUTOMATED COUNT0.6 %Normal [facility] Health SystemComment on above:Performed By: #### CBCA #### [facility] ([facility]) [address] [place] [address] VIRCELLAVISION DIFFERENTIAL TYPEAUTOMATED DIFFERENTIALNormal [facility] Health SystemComment on above:Performed By: #### CBCA #### [facility] ([facility]) [address] [place] [address] VIREosinophils (Bld) [#/Vol]0.1 10*3/uLNormal0.0-0.4[facility] HospitalComment on above:Performed By: #### CBCA #### [facility] ([facility]) [address] [place] [address] VIREOSINOPHILS RELATIVE PERCENT BY AUTOMATED COUNT0.5 %Normal [facility]ling HospitalComment on above:Performed By: #### CBCA #### [facility] ([facility]) [address] [place] [address] VIRErythrocyte distribution width (RBC) [Ratio]13.3 %Normal 11.5-15Pro[facility]ling HospitalComment on above:Performed By: #### CBCA #### [facility] ([facility]) [address] [place] [address] VIRHematocrit (Bld) [Volume fraction]25.8 %Jzr31-53ZnlYycuyl Darling HospitalComment on above:Performed By: #### CBCA #### [facility] ([facility]) [address] [place] [address] VIRHemoglobin (Bld) [Mass/Vol]8.8 g/jLTdf38-13GrjZcsfxu Darling HospitalComment on above:Performed By: #### CBCA #### [facility] ([facility]) [address] [place] [address] VIRLYMPHOCYTES ABSOLUTE COUNT (10*3/UL) BY AUTOMATED COUNT1.6 10*3/uLNormal1.0-3.5Pro[facility]ling HospitalComment on above:Performed By: #### CBCA #### [facility] ([facility]) [address] [place] [address] VIRLYMPHOCYTES RELATIVE PERCENT BY AUTOMATED COUNT14.1 %Normal [facility] HospitalComment on above:Performed By: #### CBCA #### [facility] ([facility]) [address] [place] [address] VIRMCH (RBC) [Entitic mass]30.4 huWgicrx37-47YvnQyeoex Darling HospitalComment on above:Performed By: #### CBCA #### [facility] ([facility]) [address] [place] [address] VIRMCHC (RBC) [Mass/Vol]34.1 g/yEPitfrl11-00PrkHwfrsk [facility]ling HospitalComment on above:Performed By: #### CBCA #### [facility] ([facility]) [address] [place] [address] VIRMCV (RBC) [Entitic vol]89 bUIagnug26-134EhbJzrwzg [facility]ling HospitalComment on above:Performed By: #### CBCA #### [facility] ([facility]) [address] [place] [address] VIRMONOCYTES ABSOLUTE COUNT (10*3/UL) BY AUTOMATED COUNT1.0 10*3/uLHigh0.0-0.9[facility] HospitalComment on above:Performed By: #### CBCA #### [facility] ([facility]) [address] [place] [address] VIRMONOCYTES RELATIVE PERCENT BY AUTOMATED COUNT8.8 %Normal [facility] HospitalComment on above:Performed By: #### CBCA #### [facility] ([facility]) [address] [place] [address] VIRNEUTROPHILS ABSOLUTE COUNT BY AUTOMATED COUNT8.7 10*3/uLHigh 1.5-6.6ProWooster Community Hospitalca [facility]ling HospitalComment on above:Performed By: #### CBCA #### [facility] ([facility]) [address] [place] [address] VIRNEUTROPHILS RELATIVE PERCENT BY AUTOMATED COUNT76.0 %Normal [facility] HospitalComment on above:Performed By: #### CBCA #### [facility] ([facility]) [address] [place] [address] VIRPlatelet mean volume (Bld) [Entitic vol]8.5 fLNormal7-12 [facility] HospitalComment on above:Performed By: #### CBCA #### [facility] ([facility]) [address] [place] [address] VIRPlatelets (Bld) [#/Vol]269 10*3/iJBkubia808-828IalUudhlx [place] HospitalComment on above:Performed By: #### CBCA #### [facility] ([facility]) [address] [place] [address] VIRRBC COUNT2.90 X10E12/LLow4.1-5.7Pro[facility] Comment on above:Performed By: #### CBCA #### [facility] ([facility]) [address] [place] [address] VIRWBC (Bld) [#/Vol]11.4 10*3/uLHigh4-11ProMetrohealth [facility] Heights Medical CenterComment on above:Performed By: #### CBCA #### [facility] ([facility]) [address] [place] [address] VIRBASOPHILS ABSOLUTE COUNT (10*3/UL) BY AUTOMATED COUNT0.1 10*3/uLNormal0.0-0.2ProMedSt. Rose HospitalComment on above:Performed By: #### CBCA #### [facility] ([address] [place] [address] VIRBASOPHILS RELATIVE PERCENT BY AUTOMATED COUNT0.6 %Normal [facility] HospitalComment on above:Performed By: #### CBCA #### [facility] ([address] [place] [address] VIRCELLAVISION DIFFERENTIAL TYPEAUTOMATED DIFFERENTIALNormal [facility] HospitalComment on above:Performed By: #### CBCA #### [facility] ([address] [place] [address] VIREosinophils (Bld) [#/Vol]0.3 10*3/uLNormal0.0-0.4ProMemorial Hermann–Texas Medical CenterComment on above:Performed By: #### CBCA #### [facility] ([address] [place] [address] VIREOSINOPHILS RELATIVE PERCENT BY AUTOMATED COUNT2.3 %Normal [facility] HospitalComment on above:Performed By: #### CBCA #### [facility] ([address] [place] [address] VIRErythrocyte distribution width (RBC) [Ratio]13.1 %Normal 11.5-15ProMemorial Hermann–Texas Medical CenterComment on above:Performed By: #### CBCA #### [facility] ([address] [place] [address] VIRHematocrit (Bld) [Volume fraction]27.6 %Koo31-00AqeElrijrMercy Health St. Anne HospitalComment on above:Performed By: #### CBCA #### [facility] ([address] [place] [address] VIRHemoglobin (Bld) [Mass/Vol]9.4 g/jPRcd30-25HhkOghfbsMemorial Hermann–Texas Medical CenterComment on above:Performed By: #### CBCA #### [facility] ([address] [place] [address] VIRLYMPHOCYTES ABSOLUTE COUNT (10*3/UL) BY AUTOMATED COUNT2.4 10*3/uLNormal1.0-3.5PAvita Health System Ontario HospitalComment on above:Performed By: #### CBCA #### [facility] ([address] [place] [address] VIRLYMPHOCYTES RELATIVE PERCENT BY AUTOMATED COUNT20.3 %Normal [facility] HospitalComment on above:Performed By: #### CBCA #### [facility] ([address] [place] [address] VIRMCH (RBC) [Entitic mass]30.5 vpEvlpqi04-96HgxQvigztMemorial Hermann–Texas Medical CenterComment on above:Performed By: #### CBCA #### [facility] ([facility]) [address] [place], [place] [address] [address] VIRMCHC (RBC) [Mass/Vol]34.0 g/tCZappwo39-28IgyZbhgerMemorial Hermann–Texas Medical CenterComment on above:Performed By: #### CBCA #### [facility] ([address] [place] [address] VIRMCV (RBC) [Entitic vol]90 iYEhypmq87-136MfpImfwuh [place] HospitalComment on above:Performed By: #### CBCA #### [facility] ([address] [place] [address] VIRMONOCYTES ABSOLUTE COUNT (10*3/UL) BY AUTOMATED COUNT1.3 10*3/uLHigh0.0-0.9[facility] HospitalComment on above:Performed By: #### CBCA #### [facility] ([address] [place] [address] VIRMONOCYTES RELATIVE PERCENT BY AUTOMATED COUNT11.3 %Normal [facility] HospitalComrehabilitation institute of [place] on above:Performed By: #### CBCA #### [facility] ([address] [place] [address] VIRNEUTROPHILS ABSOLUTE COUNT BY AUTOMATED COUNT7.8 10*3/uL High1.5-6.6ProMemorial Hermann–Texas Medical CenterComrehabilitation institute of [place] on above:Performed By: #### CBCA #### [facility] ([address] [place] [address] VIRNEUTROPHILS RELATIVE PERCENT BY AUTOMATED COUNT65.5 %Normal [facility] HospitalComrehabilitation institute of [place] on above:Performed By: #### CBCA #### [facility] ([address] [place] [address] VIRPlatelet mean volume (Bld) [Entitic vol]8.4 fLNormal7-[address] [facility] HospitalComment on above:Performed By: #### CBCA #### [facility] ([facility]) [address] [place] [address] [place] [address] VIRPlatelets (Bld) [#/Vol]301 10*3/oUXrexrp581-422YrwNgiqme [place] HospitalComment on above:Performed By: #### CBCA #### [facility] ([facility]) [address] [place] [address] [place] [address] VIRRBC COUNT3.08 X10E12/LLow4.1-5.7Pro[facility] Comment on above:Performed By: #### CBCA #### [facility] ([facility]) [address] [place] [address] [place] [address] VIRWBC (Bld) [#/Vol]11.9 10*3/uLHigh4-11ProMemorial Hermann–[facility] Medical CenterComment on above:Performed By: #### CBCA #### [facility] ([facility]) [address] [place] [address] [place] [address] VIRCOMPREHENSIVE METABOLIC PANELon 39-84-3398Zoddfrh [Mass/Vol]3.4 g/dLNormal3.2-5.3Pro[facility] The Metrohealth SystemComment on above: Performed By: #### CMP #### [facility] ([facility]) [address] [place] [address] VIRALP [Catalytic activity/Vol]66 U/TUtmnde86-981YhxQavryy [place] HospitalComment on above:Performed By: #### CMP #### [facility] ([facility]) [address] [place] [address] VIRALT [Catalytic activity/Vol]13 U/LNormal<=40[facility] HospitalComment on above:Performed By: #### CMP #### [facility] ([facility]) [address] [place] [address] VIRAnion gap [Moles/Vol]9 mmol/LNormal5-15[facility] HospitalComment on above:Performed By: #### CMP #### [facility] ([facility]) [address] [place] [address] VIRAST [Catalytic activity/Vol]14 U/LNormal<=41Pro[facility] HospitalComment on above:Performed By: #### CMP #### [facility] ([facility]) [address] [place] [address] VIRBilirubin [Mass/Vol]0.3 mg/dLNormal0.3-1.2ProMedOur Lady of Mercy Hospital HospitalComment on above:Performed By: #### CMP #### [facility] ([facility]) [address] [place] [address] VIRCalcium [Mass/Vol]8.2 mg/dLLow8.5-10.5ProMedOur Lady of Mercy Hospital HospitalComment on above:Performed By: #### CMP #### [facility] ([facility]) [address] [place] [address] VIRChloride [Moles/Vol]105 mmol/GEceepe91-127FqlRjbece Darling HospitalComment on above:Performed By: #### CMP #### [facility] ([facility]) [address] [place] [address] VIRCO2 [Moles/Vol]25 mmol/PBcfcse24-24WiaQvkmbd [facility] Comment on above:Performed By: #### CMP #### [facility] ([facility]) [address] [place] [address] VIRCreatinine [Mass/Vol]1.60 mg/dLHigh0.60-1.30ProMediC[facility] HospitalComment on above:Result Comment: METHOD TRACEABLE TO IDMS STANDARD Performed By: #### CMP #### [facility] ([facility]) [address] [place] [address] VIRGFR/1.73 sq M.predicted among non-blacks MDRD (S/P/Bld) [Vol rate/Area]45 mL/min/{1.73_m2}Low>=60Pro[facility] HospitalComment on above: Result Comment: Reported eGFR is based on the CKD-EPI 2020 equation that does not use a race coefficient.Performed By: #### CMP #### [facility] ([facility]) [address] [place] [address] VIRGlucose [Mass/Vol]165 mg/kPDfyy15-20RpxKyxvzp [place] HospitalComment on above:Performed By: #### CMP #### [facility] ([facility]) [address] [place] [address] VIRPotassium [Moles/Vol]3.6 mmol/LNormal3.5-5.0[facility] HospitalComment on above:Performed By: #### CMP #### [facility] ([facility]) [address] [place] [address] VIRProtein [Mass/Vol]6.0 g/dLNormal6.0-8.0[facility] HospitalComment on above:Performed By: #### CMP #### [facility] ([facility]) [address] [place] [address] VIRSodium [Moles/Vol]139 mmol/CEflikp334-054OsfSzofuw [place] HospitalComment on above:Performed By: #### CMP #### [facility] ([facility]) [address] [place] [address] VIRUrea nitrogen [Mass/Vol]27 mg/dLNormal5-27[facility] HospitalComment on above:Performed By: #### CMP #### [facility] ([facility]) [address] [place] [address] VIRCT BRAIN WO CONT STROKE ALERTon [id number] BRAIN WO CONT STROKE ALERTCT BRAIN WO CONT STROKE ALERT History: Patient found unresponsive. NONCONTRAST HEAD CT [...] by Chip Sprague MD on 11/19/2024 6:18 [facility] CTA CAROTIDon 71-36-3242BG CTA CAROTIDCT CTA CAROTID History: Acute neurological disorder. Acute stroke/TIA Exam/Technique: Bolus arterial phase IV contrast. 3-D and multiplanar reconstructions are provided for CTA of the neck. Volume rendered 3 -D Maximum intensity projection reconstructions constructed under concurrent physician supervision on an independent workstation and reviewed for purposes of eval uation of the cervical arterial vasculature. Carotid artery narrowing is assessed using the [place] Symptomatic Carotid Endarterectomy Trial (NASCET) method. Comparison: [...] by Chip Sprague MD on 11/19/2024 7:06 AMNMercy Health Perrysburg HospitalCT CTA HEADon 63-28-2841DP CTA HEADCT CTA HEAD CTA of the intracranial arteries with contrast [...] reconstructions constructed under concurrent physician supervision on [facility] hospitalPyng Medical workstation . 3 D images obtained to [...] by Whit Lewis MD on 11/19/2024 7:41 [facility] ClinicETHANOLon 02-17-4863Stqnerw [Mass/Vol]mg/dLNormal<=0.080ProMemorial Hermann–Texas Medical CenterComment on above:Result Comment: This report is intended for use in clinical monitoring or management of patients.Performed By: #### BEDG #### [facility] ([facility]) [address] [place] [address] VIRHEMOGLOBIN A1Con 72-99-1915Qidfvqb [Mass/Vol]140 mg/dL NormalProMetrohealth Cleveland Heights Medical CenterComment on above:Performed By: #### HA1C #### [facility] ([facility]) [address] [place] [address] GVAYvD6t (Bld) [Mass fraction]6.5 %High4.4-5.6ProMetrohealth Cleveland Heights Medical CenterComment on above:Result Comment: ADA Guidelines Result HgbA1c Normal : less than 5.7 % Prediabetes : 5.7 % to 6.4 % Diabetes : > 6.4 % Use with caution in patients with abnormal hemoglobin variants as the half-life of red blood cells and in vivo glycation rates are affected.Performed By: #### NICOLAS #### [facility] ([facility]) [address] [place] [address] VIRGlucose [Mass/Vol]134 mg/dLNoalMercy Health St. Anne Hospital Comment on above:Performed By: #### VALENTINO1C ####[facility] ([facility])[address] [address] XLRIfG4r (Bld) [Mass fraction]6.3 %High4.4-5.6Mercy Health St. Anne HospitalComment on above:Result Comment: ADA Guidelines Result HgbA1c Normal : less than 5.7 % Prediabetes : 5.7 % to 6.4 % Diabetes : > 6.4 % Use with caution in patients with abnormal hemoglobin variants as the half-life of red blood cells and in vivo glycation rates are affected.Performed By: #### HA1C ####[facility] ([facility])[address], [place] [address] VIRIRON AND TIBCon 19-24-0391Nzpo [Mass/Vol]54 ug/hHVsqkfs64-858OqnFzpefzMercy Health St. Anne HospitalComment on above: Performed By: #### FEPR ####[facility] ([facility])[address], [place] [address] VIRIRON ZGQNYZW863 ug/sUSnu450-619HvaXbgvnpMemorial Hermann–Texas Medical CenterComment on above:Performed By: #### FEPR ####[facility] ([facility])[address], [place] [address] VIRIRON MCTFPBOSLR86 % FSECBPZFAJEttytd13-09TbsLamrpi Fremont HospitalComment on above: Performed By: #### FEPR ####[facility] ([facility])[address], [place] [address] VIRTransferrin [Mass/Vol]159 mg/wCXln864-[address] Anne HospitalComment on above:Performed By: #### FEPR ####[facility] ([facility])[address], [place] [address] VIR LACTATE W/ REFLEXon 33-74-2375AVQEOPH W/REFLEX1.6 mmol/LNormal0.4-2.0Mercy Health St. Anne HospitalComment on above:Order Comment: Result did not trigger repeat Lactate,re-order if needed.Performed By: #### BEDG #### [facility] ([facility]) [address] [place] [address] VIRLIPASEon 28-20-8474Erixcp [Catalytic activity/Vol]21 U/L Buhsel37-06WsmRmmlqfMemorial Hermann–Texas Medical CenterComment on above:Performed By: #### BEDG #### [facility] ([facility]) [address] [place] [address] VIRLIPID PROFILEon 50-52-6208Imnqpwtjajn [Mass/Vol]107 mg/dL Vkx753-144FauLswqhsMercy Health St. Anne HospitalComment on above:Performed By: #### LIPR ####[facility] ([facility])[address], [place] [address] VIRCholesterol in HDL [Mass/Vol]32 mg/dLLow>39[facility] Comment on above:Result Comment: HDL <40 mg/dL - High Risk HDL > or = 40mg/dL- Desirable HDL >60 mg/dL - Negative RiskPerformed By: #### LIPR ####[facility] ([facility])[address], [place] [address] VIRCholesterol in LDL [Mass/Vol]28 mg/dLNormal<130ProMemorial Hermann–Texas Medical CenterComment on above: Result Comment: LDL <100 mg/dL - Desirable LDL >160 mg/dL - High RiskPerformed By: #### LIPR ####[facility] ([facility])[address], [place] [address] VIRCHOLESTEROL:HDL3.3 Normal1.0-5.0Mercy Health St. Anne HospitalComment on above:Performed By: #### LIPR ####[facility] ([facility])[address], [place] [address] VIRTriglyceride [Mass/Vol]235 mg/sDQamr93-931RrcMckistMemorial Hermann–Texas Medical Center Comment on above:Performed By: #### LIPR ####[facility] ([facility])[address] [facility] [address], [place] [address] VIRVERY LOW TLNQZWHLNJK08 mg/dL High0-30ProMemorial Hermann–Texas Medical CenterComment on above:Performed By: #### LIPR ####[facility] ([facility])[address], [place] [address] VIRLIVER PANELon 52-02-0087Jprjuqy [Mass/Vol]3.6 g/dLNormal3.2-5.[address] Anne HospitalComment on above:Performed By: #### LIVR #### [facility]) [address] [place] [address] VIRALP [Catalytic activity/Vol]90 U/SGivnrf18-939CweBjlelwMemorial Hermann–Texas Medical CenterComment on above:Performed By: #### LIVR #### [facility] ([facility]) [address] [place] [address] VIRALT [Catalytic activity/Vol]17 U/LNormal<=40ProMemorial Hermann–Texas Medical CenterComment on above:Performed By: #### LIVR #### [facility] ([facility]) [facility] [place] [address] VIRAST [Catalytic activity/Vol]21 U/LNormal<=41ProMemorial Hermann–Texas Medical CenterComment on above:Performed By: #### LIVR #### [facility] ([address] [place] [address] VIRBilirubin [Mass/Vol]0.5 mg/dLNormal0.3-1.2ProMedSt. Rose HospitalComment on above:Performed By: #### LIVR #### [facility] ([address] [address] VIRBilirubin.indirect [Mass/Vol]0.1 mg/dLNormal<=0.4ProMemorial Hermann–Texas Medical CenterComment on above:Performed By: #### LIVR #### [facility] ([address] [address] VIRProtein [Mass/Vol]6.9 g/dLNormal6.0-8.0ProMemorial Hermann–Texas Medical CenterComment on above:Performed By: #### LIVR #### [facility] ([address] [address] VIRMAGNESIUMon 41-54-3561Ugosobrrp [Mass/Vol]2.0 mg/dLNormal 1.8-2.6ProMetrohealth Cleveland Heights Medical CenterComment on above:Performed By: #### MG #### [facility] ([facility]) [address] [place] [address] VIRMagnesium [Mass/Vol]2.3 mg/dLNormal1.8-2.6ProMemorial Hermann–Texas Medical CenterComment on above:Performed By: #### BEDG #### [facility] ([address] [address] VIRMR BRAIN WO CONTon 59-49-1991XJ BRAIN WO CONTMR BRAIN WO CONT STUDY: MR BRAIN WO CONT INDICATION: acute [...] lesions, presumed to reflect a meningioma, not significantlychanged since 03/26/2023. Finalized by Christian Pop on 11/19/2024 12:27 PMNormalProMedica Rancho Springs Medical CenterPHOSPHORUSon 40-15-3019Bqomejsld [Mass/Vol]2.6 mg/dLNormal2.4-4.9 [facility] SystemComment on above:Performed By: #### PHOS #### [facility] ([facility]) [address] [place] [address] VIRPROTIME AND INRon 61-32-5670EWD4.2Kgxvks3.9-1.2PAvita Health System Ontario HospitalComment on above:Performed By: #### PINR #### [facility] ([address] [address] VIRPT Coag (PPP) [Time]10.0 sNormal9.8-13.2PAvita Health System Ontario HospitalComment on above:Performed By: #### PINR #### [facility] ([address] [address] VIRSALICYLATE LEVELon 77-98-0185BSKFIMGPGP<^4.9Dqbzwh5.0-25.[address] Anne HospitalComment on above:Order Comment: Reference ranges are for therapeutic limits.Performed By: #### BEDG #### [facility] ([address] [place] [address] VIRTHYROID PROFILE INCLUDES TSH FT4on 63-09-4589Zjmy T4 [Mass/Vol]0.95 ng/dLNormal0.61-1.60ProMemorial Hermann–Texas Medical CenterComment on above: Performed By: #### BEDG #### [facility] ([address] [place] [address] VIRTSH8.17 uIU/mLHigh0.49-4.67ProMemorial Hermann[facility] Center Comment on above:Performed By: #### BEDG #### [facility] ([address] [place] [address] VIRTROP I, HIGH SENSITIVITY 1 HOURon 98-56-2477UQVUPOMM I, HIGH RVFZGKXIPJA50 ng/LNormal<21ProMemorial Hermann–Texas Medical CenterComment on above: Performed By: #### BEDG #### [facility] ([address] [place] [address] VIRTROPONIN I, HIGH SENSITIVITY 0 HOURon 21-98-7576IKGUFSDZ I, HIGH SENSITIVITY7 ng/LNormal<21ProMemorial Hermann–Texas Medical CenterComment on above: Performed By: #### TNIHS0 #### [facility] ([address] [place] [address] VIROffice Visiton 30-81-0122Xqagtt-up [id number] Chelsea Diego JR 1950 M Date Provider Department Center 09/01/2024 Mark-RONEL AQUINO CARD Luis F Ceron Family History Problem Relation Age of Onset Diabetes Mother Family Status - Relation Status Age at Mother Level of Service:[address] [place] OFFICE/OUTPATIENT ESTABLISHED LOW MDM [address] [facility] HospitalErythrocyte distribution width Auto (RBC) [Ratio]on 88-71-1445Lrrfzlrgyzz distribution width (RBC) [Ratio]Erythrocyte distribution width [Ratio] by Automated count11.0-15.0K[facility]tering Health MiamisburgEstimated glomerular filtration rate (GFR) non- Americanon 05-88-4176XLU/1.73 sq M.predicted among non-blacks MDRD (S/P/Bld) [Vol rate/Area]Estimated glomerular filtration rate (GFR) non- AmericanLow>=60 mL/min/1.73m 2FRegency Hospital ToledoHematocrit Auto (Bld) [Volume fraction]on 76-18-9734Spbxsgemlg (Bld) [Volume fraction]Hematocrit [Volume Fraction] of Blood by Automated dmqcpPzl93.0-54.0[facility] MiamisburgHemoglobin [Mass/volume] in Bloodon 05-12-4676Rzcwtbyksb (Bld) [Mass/Vol] Hemoglobin [Mass/volume] in GpyurYzc21.0-18.0[facility] Iron binding capacity [Mass/volume] in Serum or Plasmaon 70-78-0596Putx binding capacity [Mass/Vol]Iron binding capacity [Mass/volume] in Serum or PlasmaLow 250.0-450.0[facility] MiamisburgIron saturation [Mass Fraction] in Serum or Plasmaon 56-92-6991Gfqy saturation [Mass fraction]Iron saturation [Mass Fraction] in Serum or PlasmaKettering Health MiamisburgLaboratory - Chemistry and Chemistry - challengeon 25-43-7334Qfkgwas [Mass/Vol]3.4 g/dL 3.4-5.0[facility] MiamisburgCalcium [Mass/Vol]8.7 mg/dL8.5-10.1 [facility] MiamisburgChloride [Moles/Vol]102 mmol/S45-290LdxrtlshlKettering Health MiamisburgCO2 [Moles/Vol]28.9 mmol/L21.0-32.0[facility] MiamisburgCobalamin (Vitamin B12) [Mass/Vol]327 pg/gQ693-3573XmgwmdsodKettering Health MiamisburgComment on above:Performed at: - Lab[address] [id number] Director: Alvaro Verde PhD, Phone: [phone] [Mass/Vol]2.01 mg/dLHigh0.70-1.30Fire[facility] Regional Medical CenterFerritin [Mass/Vol]487.0 ng/dSGsza70.0-388.0[facility] MiamisburgGFR/1.73 sq M.predicted MDRD (S/P/Bld) [Vol rate/Area]40 mL/min/{1.73_m2} Low>=60 mL/min/1.73m 2FRegency Hospital ToledoGlucose [Mass/Vol]165 mg/kAMwkw62-579UnlxfivpsKettering Health MiamisburgIron [Mass/Vol]56.0 ug/dLLow 65.0-175.0[facility] MiamisburgMagnesium [Mass/Vol]1.9 mg/dL1.8-2.4 [facility] MiamisburgPotassium [Moles/Vol]3.9 mmol/L3.5-5.1FSelect Medical Specialty Hospital - Cincinnati Northodium [Moles/Vol]140 mmol/P129-103KfguroecsKettering Health MiamisburgUrate [Mass/Vol]7.8 mg/dLHigh3.5-7.2FRegency Hospital ToledoUrea nitrogen [Mass/Vol]42.0 mg/dLHigh7.0-18.0[facility] MiamisburgUrea nitrogen/Creatinine [Mass ratio]20.9 mg/mgKettering Health MiamisburgLaboratory - Urinalysison 83-66-3337Mvgwlng (U) [Mass/Vol]98.1 mg/dLHigh <=11.9[facility] MiamisburgLeukocytes [#/volume] corrected for nucleated erythrocytes in Blood by Automated counon 20-20-3204EHY corrected for nucl RBC Auto (Bld) [#/Vol]Leukocytes [#/volume] corrected for nucleated erythrocytes in Blood by Automated coun4.0-11.0[facility] MCH Auto (RBC) [Entitic mass]on 95-48-1277VQO (RBC) [Entitic mass]MCH [Entitic mass] by Automated count25.9-34.0[facility] Health MiamisburgMCHC Auto (RBC) [Mass/Vol]on 80-17-5662JUWS (RBC) [Mass/Vol]MCHC [Mass/volume] by Automated count29.9-35.2FRegency Hospital ToledoMCV Auto (RBC) [Entitic vol]on 01-97-7882LAK (RBC) [Entitic vol]MCV [Entitic volume] by Automated count 80.0-94.0[facility] MiamisburgNo Panel Informationon 19-73-415679- Hydroxy Vitamin D Total47.5 ng/mLKettering Health MiamisburgComment on above:<20 ng/mL Vit D -<30 ng/mL Vit D dvsvspnpjnag93-086 ng/mL Vit D sufficient>100 ng/mL Potential ToxicityFolate6.60 ng/mLLow8.60-58.90K[facility] MiamisburgParathyroid Hormone (Intact)61 pg/uW47-94NmahztlzvKettering Health MiamisburgComment on above:Performed at: [place] [id number] Director: Alvaro Verde PhD, Phone: [phone] Level3.4 mg/dL2.6-4.7FRegency Hospital ToledoUrine Random Ozzmwshuob10.89 mg/dL20.00-300.00[facility] Platelet mean volume Auto (Bld) [Entitic vol]on 69-78-6208Xbkocjjv mean volume (Bld) [Entitic vol]Platelet mean volume [Entitic volume] in Blood by Automated count9.5-13.5FRegency Hospital ToledoPlatelets Auto (Bld) [#/Vol]on 95-67-5501Mecgrmmuo (Bld) [#/Vol]Platelets [#/volume] in Blood by Automated ihiul517-737WsbsfjefjKettering Health MiamisburgRBC Auto (Bld) [#/Vol]on 08-19-2024 RBC (Bld) [#/Vol]Erythrocytes [#/volume] in Blood by Automated countLow4.70-6.10 [facility] Community Hospitalerum or plasma anion gap determinationon 89-27-9616Aleog gap [Moles/Vol]Serum or plasma anion gap determinationKettering Health MiamisburgTBH URINE T PROTEIN CREAT RATIOon 16-81-9792PMEWHXFUBG URINE VSWDFR70.89 mg/dL20.00 - 300.00 mg/dLNOHI HealthcareInterpretation and review of laboratory resultsAbnormalNOMS HealthcareProtein (U) [Mass/Vol]98.1 mg/dLHighNINF - 11.9 mg/dLNOHI HealthcarePROTEIN CREATININE RATIO URINE1.36NOHI HealthcareCLINISYNCNOMS HealthcareUrine protein/creatinine ratioon 08-19-2024 Protein/Creatinine (U) [Ratio]Urine protein/creatinine ratioKettering Health MiamisburgHbA1c HPLC (Bld) [Mass fraction]on 85-58-2768QwH1n (Bld) [Mass fraction]Hemoglobin A1c/Hemoglobin.total in Blood by HPLCKettering Health MiamisburgNo Panel Informationon 92-70-2245Gyfcxtc Fkbqpxv431SwuifrjerKettering Health MiamisburgLaboratory - Chemistry and Chemistry - challengeon 02-15-0044Qevhxjfju Ql (U)NegativeNEGATIVEKettering Health Miamisburg Glucose (U) [Mass/Vol]NegativeNEGATIVEKettering Health MiamisburgKetones Ql (U)NegativeNEGChillicothe HospitalpH (U)5.0 [pH]5.0-9.0 [facility] Community Hospitalpecific gravity (U) [Rel density]>=1.030 Abnormal1.005-1.025K[facility] Health MiamisburgUrobilinogen Qn (U)0.2 {Bushra'U}/dL0.2-1.0[facility] MiamisburgLaboratory - Specimen informationon 37-50-8742Czcqfgbwbv (U)CLEARCLEARFRegency Hospital ToledoColor (U)YELLOWYELLOWKettering Health MiamisburgLaboratory - Urinalysison 87-65-4716Urnshdpaa esterase Test strip Ql (U)NegativeNEGATIVE [facility] MiamisburgNitrite Ql (U)NegativeNEGChillicothe HospitalProtein (U) [Mass/Vol]192.1 mg/dLHigh<=11.9[facility] MiamisburgProtein Ql (U)100 mg/dLAbnormalNEG/TRACEKettering Health MiamisburgNo Panel Informationon 02-21-1454Idbnx Occult Blood NegativeNEGATIVEKettering Health MiamisburgUrine Random Wfofddcesv019.85 mg/dL20.00-300.00K[facility] MiamisburgTBH URINE T PROTEIN CREAT RATIOon 93-19-6978IDVFZASWHM URINE AWUJGU751.85 mg/dL20.00 - 300.00 mg/dLTIMPANOGOS REGIONAL HOSPITAL HealthcareInterpretation and review of laboratory resultsAbnormUPMC [facility] Protein (U) [Mass/Vol]192.1 mg/dLHighNINF - 11.9 mg/dLSaint John's Breech Regional Medical CenterPROTEIN CREATININE RATIO URINE0.71Davis Regional Medical CenterUrine protein/creatinine ratioon 51-20-8995Jkkhrvo/Creatinine (U) [Ratio]Urine protein/creatinine ratioKettering Health MiamisburgErythrocyte distribution width Auto (RBC) [Ratio]on 78-36-3933Uyxabjxzdjp distribution width (RBC) [Ratio]Erythrocyte distribution width [Ratio] by Automated count11.0-15.0 [facility] MiamisburgEstimated glomerular filtration rate (GFR) non- Americanon 63-28-4121IHP/1.73 sq M.predicted among non-blacks MDRD (S/P/Bld) [Vol rate/Area]Estimated glomerular filtration rate (GFR) non- AmericanLow>=60 mL/min/1.73m [address] [place] [address] CBC WITH PLATELET NO DIFFERENTIALon 52-23-3257Bvaudumaipz distribution width (RBC) [Ratio]12.4 %11.0 - 15.0 %TIMPANOGOS REGIONAL HOSPITAL HealthcareHematocrit (Bld) [Volume fraction]30.7 %Low42.0 - 54.0 %[facility] Medical CenterHemoglobin (Bld) [Mass/Vol]10.3 g/dLLow14.0 - 18.0 g/dLSaint John's Breech Regional Medical CenterInterpretation and review of laboratory resultsAbnormal [facility] (RBC) [Entitic mass]30.7 pg25.9 - 34.0 pgCox NorthHC (RBC) [Mass/Vol]33.6 g/dL29.9 - 35.2 g/dLCox NorthV (RBC) [Entitic vol] 91.6 fL80.0 - 94.0 fLSaint John's Breech Regional Medical CenterPlatelet mean volume (Bld) [Entitic vol]9.7 fL9.5 - 13.5 fLCass Medical Center UOA517HAPVCass Medical Center RBC3.35LowCass Medical Center WBC17.1HighDavis Regional Medical CenterHematocrit Auto (Bld) [Volume fraction]on 52-04-5118Plejwlyckw (Bld) [Volume fraction]Hematocrit [Volume Fraction] of Blood by Automated yengiIzt66.0-54.0[facility] MiamisburgHemoglobin [Mass/volume] in Bloodon 46-35-7086Vrpgdmdssr (Bld) [Mass/Vol]Hemoglobin [Mass/volume] in XpuusQnr18.0-18.0[facility] MiamisburgIron binding capacity [Mass/volume] in Serum or Plasmaon 49-62-5323Mttc binding capacity [Mass/Vol]Iron binding capacity [Mass/volume] in Serum or EzaarpVpq495.0-450.0[facility] MiamisburgIron saturation [Mass Fraction] in Serum or Plasmaon 90-15-6151Wwsa saturation [Mass fraction] Iron saturation [Mass Fraction] in Serum or PlasmaKettering Health MiamisburgLaboratory - Chemistry and Chemistry - challengeon 31-76-8586Kijtlej [Mass/Vol]3.5 g/dL3.4-5.0[facility] MiamisburgCalcium [Mass/Vol]9.0 mg/dL8.5-10.1FRegency Hospital ToledoChloride [Moles/Vol]100 mmol/L 98-107K[facility] Health MiamisburgCO2 [Moles/Vol]27.0 mmol/L21.0-32.0 [facility] MiamisburgCobalamin (Vitamin B12) [Mass/Vol]403 pg/mL 232-1245K[facility] MiamisburgComment on above:Performed at: [facility] [address] [id number] Director: Alvaro Verde PhD, Phone: [phone] [Mass/Vol]2.81 mg/dLHigh0.70-1.30 [facility] MiamisburgFerritin [Mass/Vol]581.0 ng/mAFrph15.0-388.0 [facility] MiamisburgGFR/1.73 sq M.predicted MDRD (S/P/Bld) [Vol rate/Area]27 mL/min/{1.73_m2}Low>=60 mL/min/1.73m 2FRegency Hospital ToledoGlucose [Mass/Vol]135 mg/wGIqyu50-639KuowyvbgnKettering Health MiamisburgIron [Mass/Vol]24.0 ug/dLLow65.0-175.0[facility] MiamisburgMagnesium [Mass/Vol]2.0 mg/dL1.8-2.4FRegency Hospital ToledoPotassium [Moles/Vol] 3.9 mmol/L3.5-5.1FSelect Medical Specialty Hospital - Cincinnati Northodium [Moles/Vol]137 mmol/L 136-145K[facility] Health MiamisburgUrate [Mass/Vol]8.9 mg/dLHigh3.5-7.2 [facility] MiamisburgUrea nitrogen [Mass/Vol]37.0 mg/dLHigh7.0-18.0 [facility] MiamisburgUrea nitrogen/Creatinine [Mass ratio]13.2 mg/mg [facility] MiamisburgLeukocytes [#/volume] corrected for nucleated erythrocytes in Blood by Automated counon 10-31-5159CZS corrected for nucl RBC Auto (Bld) [#/Vol]Leukocytes [#/volume] corrected for nucleated erythrocytes in Blood by Automated counHigh4.0-11.0UC HealthH Auto (RBC) [Entitic mass]on 15-81-0459KDA (RBC) [Entitic mass]MCH [Entitic mass] by Automated count25.9-34.0[facility] MiamisburgMCHC Auto (RBC) [Mass/Vol]on 60-64-8538DBKF (RBC) [Mass/Vol]MCHC [Mass/volume] by Automated count29.9-35.2FRegency Hospital ToledoMCV Auto (RBC) [Entitic vol]on 15-40-9373DML (RBC) [Entitic vol]MCV [Entitic volume] by Automated count 80.0-94.0[facility] MiamisburgNo Panel Informationon - Hydroxy Vitamin D Total47.0 ng/mLKettering Health MiamisburgComment on above:<20 ng/mL Vit D jligmtkwg02-<30 ng/mL Vit D bmhsiciolgim98-654 ng/mL Vit D sufficient>100 ng/mL Potential ZaegsiesNyvczd11.60 ng/mL8.60-58.90[facility] MiamisburgParathyroid Hormone (Intact)39 pg/gU94-02KukofvactKettering Health MiamisburgComment on above:Performed at: [address] [id number] Director: Alvaro Verde PhD, Phone: [phone] Level4.3 mg/dL2.6-4.7FRegency Hospital Toledo Platelet mean volume Auto (Bld) [Entitic vol]on 52-18-1786Osblluww mean volume (Bld) [Entitic vol]Platelet mean volume [Entitic volume] in Blood by Automated count9.5-13.5FRegency Hospital ToledoPlatelets Auto (Bld) [#/Vol]on 46-89-7158Ozjcwcbwn (Bld) [#/Vol]Platelets [#/volume] in Blood by Automated -037UimomasdwKettering Health MiamisburgRBC Auto (Bld) [#/Vol]on 05-31-2024 RBC (Bld) [#/Vol]Erythrocytes [#/volume] in Blood by Automated countLow4.70-6.10 [facility] Community Hospitalerum or plasma anion gap determinationon 54-26-6786Uatbk gap [Moles/Vol]Serum or plasma anion gap determinationKettering Health MiamisburgCT CHEST WO CONon 44-52-0231[place] [address] [place] Scan Report Signed Patient: CHELSEA DIEGO Jr. MR#: [id number] : 1950 Acct:[id number] Age/Sex: 73 / M ADM Date: 05/03/24 Loc: CT Attending Dr: Fabiola Fernandes D.O. Ordering Physician: Fabiola Fernandes D.O. Date of Service: 05/03/24 Procedure(s): CT chest wo con Accession Number(s): [id number] cc: Tejas Stevens M.D. [place] [id number] Patient Name: CHELSEA DIEGO MRN: [id number] date: 1950 Sex: M Assigned Patient Location: CT Current Patient Location: Accession/Order Number: [id number] Exam Date: 05/03/2024 15:13 Report Date: 05/05/2024 04:57 At the request of: FABIOLA FERNANDES Procedure: CT chest wo con EXAMINATION: [...] mass, effusion, or pneumothorax. VASCULATURE: No abnormality. SIMBA: Calcified left hilar lymph nodes suggestive chronic [...] base. No suspicious findings. Electronically authenticated by: CLAUDE CHENEY Date: 05/05/2024 04:57 Dictated By: Claude Cheney M.D. Signed By: 05/05/24 0500 DD/ 0457 TD/TT: Slab Tripper:TBHRadiology, Radiologist, - 05/05/2024 [place] [address] CT Scan Report Signed Patient: CHELSEA DIEGO Jr. MR#: [id number] : 1950 Acct:[id number] Age/Sex: 73 / M ADM Date: 05/03/24 Loc: CT Attending Dr: Fabiola Fernandes D.O. Ordering Physician: Fabiola Fernandes D.O. Date of Service: 05/03/24 Procedure(s): CT chest wo con Accession Number(s): [id number] cc: Tejas Stevens M.D. The [address] [address] Patient Name: CHELSEA DIEGO MRN: [id number] date: 1950 Sex: M Assigned Patient Location: CT Current Patient Location: Accession/Order Number: [id number] Exam Date: 05/03/2024 15:13 Report Date: 05/05/2024 04:57 At the request of: FABIOLA FERNANDES Procedure: CT chest wo con EXAMINATION: [...] mass, effusion, or pneumothorax. VASCULATURE: No abnormality. SIMBA: Calcified left hilar lymph nodes suggestive chronic [...] base. No suspicious findings. Electronically authenticated by: CLAUDE CHENEY Date: 05/05/2024 04:57 Dictated By: Claude Cheney M.D. Signed By: 05/05/24 0500 DD/ 0457 TD/TT: Slab Tripper: JOSE HealthcareRadiology Study observation (narrative)N[facility] HealthcareCT CHEST WO CONOrdered By: Radiologist Radiology on 65-83-4725SFSQ Healthcare Work Phone: HbA1c HPLC (Bld) [Mass fraction]on 86-29-7011CcX4w (Bld) [Mass fraction]Hemoglobin A1c/Hemoglobin.total in Blood by [facility] HospitalNo Panel Informationon 33-94-7809Ronqrxk Fymokqz186 [facility] MiamisburgALL RENAL FUNCTION PANELon 96-24-0555Lhzvvyq [Mass/Vol]3.1 g/dLLow3.4 - 5.0 g/dLNOHI HealthcareAnion gap [Moles/Vol]16.1 mmol/LNOMS HealthcareCalcium [Mass/Vol]9 mg/dL8.5 - 10.1 mg/dLNOHI Healthcare Chloride [Moles/Vol]100 mmol/L98 - 107 mmol/LNOMS HealthcareCO2 [Moles/Vol]25 mmol/L21.0 - 32.0 mmol/LNOMS HealthcareCreatinine [Mass/Vol]2.71 mg/dLHigh0.70 - 1.30 mg/dLNOHI HealthcareGFR/1.73 sq M.predicted CKD-EPI (S/P/Bld) [Vol rate/Area]28Low>=60 mL/min/1.73m 2NOMS HealthcareGlucose [Mass/Vol]154 mg/dLHigh 74 - 106 mg/dLNOHI HealthcareInterpretation and review of laboratory results AbnormalNOMS HealthcarePhosphate [Mass/Vol]5.1 mg/dLHigh2.6 - 4.7 mg/dLNOHI HealthcarePotassium [Moles/Vol]5.1 mmol/L3.5 - 5.1 mmol/LNOMS HealthcareSodium [Moles/Vol]136 mmol/L136 - 145 mmol/LNOMS HealthcareTBH EGFR-NON AF VONWHJRC97 Low>=60 mL/min/1.73m 2N[facility]S HealthcareUrea nitrogen [Mass/Vol]39 mg/dLHigh7.0 - 18.0 mg/dLNOHI HealthcareUrea nitrogen/Creatinine [Mass ratio]14.4 mg/mgNOHI HealthcareCLINISYNCNMARY HUR[facility] HealthcareEstimated glomerular filtration rate (GFR) non- Americanon 47-97-9562IQU/1.73 sq M.predicted among non-blacks MDRD (S/P/Bld) [Vol rate/Area]Estimated glomerular filtration rate (GFR) non- AmericanLow>=60 mL/min/1.73m 2FRegency Hospital ToledoLaboratory - Chemistry and Chemistry - challengeon 60-44-8083Ufwusgj [Mass/Vol]3.1 g/dLLow 3.4-5.0[facility] CenterCalcium [Mass/Vol]9.0 mg/dL8.5-10.1 [facility]burgChloride [Moles/Vol]100 mmol/P90-278RbeysceulKettering Health MiamisburgCO2 [Moles/Vol]25.0 mmol/L21.0-32.0[facility]amisburgCreatinine [Mass/Vol]2.71 mg/dLHigh0.70-1.30[facility]amisburgGFR/1.73 sq M.predicted MDRD (S/P/Bld) [Vol rate/Area]28 mL/min/{1.73_m2}Low>=60 mL/min/1.73m 2FRegency Hospital ToledoGlucose [Mass/Vol]154 mg/iEFvar26-608UkojqjcjxKettering Health MiamisburgPotassium [Moles/Vol]5.1 mmol/L3.5-5.1FSelect Medical Specialty Hospital - Cincinnati Northodium [Moles/Vol] 136 mmol/B940-635MwdtitbbtKettering Health MiamisburgUrea nitrogen [Mass/Vol]39.0 mg/dLHigh7.0-18.0[facility] MiamisburgUrea nitrogen/Creatinine [Mass ratio]14.4 mg/mgKettering Health MiamisburgNo Panel Informationon 62-99-9378Aobmrhghpl Level5.1 mg/dLHigh2.6-4.7FRegency Hospital Toledo Serum or plasma anion gap determinationon 66-07-3768Etlze gap [Moles/Vol]Serum or plasma anion gap determinationKettering Health MiamisburgErythrocyte distribution width Auto (RBC) [Ratio]on 38-76-0047Ypomfinujmo distribution width (RBC) [Ratio]Erythrocyte distribution width [Ratio] by Automated count11.0-15.0 [facility] MiamisburgEstimated glomerular filtration rate (GFR) non- Americanon 27-65-7284MVQ/1.73 sq M.predicted among non-blacks MDRD (S/P/Bld) [Vol rate/Area]Estimated glomerular filtration rate (GFR) non- AmericanLow>=60 mL/min/1.73m 2FKnox Community Hospital CBC WITH PLATELET NO DIFFERENTIALon 45-68-8524Hvaphcwkjev distribution width (RBC) [Ratio]13.1 %11.0 - 15.0 %[facility] HealthcareHematocrit (Bld) [Volume fraction]27.2 %Low42.0 - 54.0 %[facility] Medical CenterHemoglobin (Bld) [Mass/Vol]9.1 g/dLLow14.0 - 18.0 g/dLTIMPANOGOS REGIONAL HOSPITAL HealthcareInterpretation and review of laboratory resultsAbnormal Cox NorthH (RBC) [Entitic mass]30.5 pg25.9 - 34.0 pgCox NorthHC (RBC) [Mass/Vol]33.5 g/dL29.9 - 35.2 g/dLCox NorthV (RBC) [Entitic vol] 91.3 fL80.0 - 94.0 fLSaint John's Breech Regional Medical CenterPlatelet mean volume (Bld) [Entitic vol]9.6 fL9.5 - 13.5 fLSaint John's Breech Regional Medical CenterTBH WMN007VZBISaint John's Breech Regional Medical CenterTB RBC2.98LowSaint John's Breech Regional Medical CenterTB QGN58PwzmEFVDSaint John's Breech Regional Medical CenterCLINISYNCNOMS HealthcareHematocrit Auto (Bld) [Volume fraction]on 68-86-5451Gigikerdke (Bld) [Volume fraction]Hematocrit [Volume Fraction] of Blood by Automated whqgxByc76.0-54.0[facility]amisburgHemoglobin [Mass/volume] in Bloodon 92-64-0435Ehcdcbhlfw (Bld) [Mass/Vol]Hemoglobin [Mass/volume] in NchdcSwc72.0-18.0[facility] MiamisburgImmunofixation for Urineon 36-80-4850Aynbhldepgjaez Immunofixation (U) [Interp]Immunofixation for Urine.[facility] MiamisburgComment on above:No monoclonality detected.Performed at: - Lab[address] [id number] Director: Alvaro Verde PhD, Phone: [phone] Iron binding capacity [Mass/volume] in Serum or Plasmaon 17-12-5371Ffli binding capacity [Mass/Vol]Iron binding capacity [Mass/volume] in Serum or Plasma 250.0-450.0[facility]amisburgIron saturation [Mass Fraction] in Serum or Plasmaon 38-34-8262Oudn saturation [Mass fraction]Iron saturation [Mass Fraction] in Serum or PlasmaKettering Health MiamisburgLaboratory - Chemistry and Chemistry - challengeon 01-75-2248Uhjffnm [Mass/Vol]3.5 g/dL 3.4-5.0[facility]burgCalcium [Mass/Vol]9.1 mg/dL8.5-10.1 [facility]amisburgChloride [Moles/Vol]101 mmol/U41-507PqidgxcijKettering Health MiamisburgCO2 [Moles/Vol]25.0 mmol/L21.0-32.0[facility]amisburgCreatinine [Mass/Vol]3.40 mg/dLHigh0.70-1.30[facility] MiamisburgFerritin [Mass/Vol]657.0 ng/iWLuir81.0-388.0[facility]amisburgGFR/1.73 sq M.predicted MDRD (S/P/Bld) [Vol rate/Area]22 mL/min/{1.73_m2}Low>=60 mL/min/1.73m 2FRegency Hospital ToledoGlucose [Mass/Vol]118 mg/xJBiiy81-613GgyhqhmlaKettering Health MiamisburgIron [Mass/Vol] 30.0 ug/dLLow65.0-175.0[facility]amisburgMagnesium [Mass/Vol]2.1 mg/dL1.8-2.4FRegency Hospital ToledoPotassium [Moles/Vol]5.6 mmol/LHigh 3.5-5.1FSelect Medical Specialty Hospital - Cincinnati Northodium [Moles/Vol]137 mmol/T617-951 [facility] MiamisburgUrate [Mass/Vol]8.1 mg/dLHigh3.5-7.2FRegency Hospital ToledoUrea nitrogen [Mass/Vol]58.0 mg/dLHigh7.0-18.0[facility]amisburgUrea nitrogen/Creatinine [Mass ratio]17.1 mg/mgKettering Health MiamisburgBilirubin Ql (U)NegativeNEGATIVEKettering Health MiamisburgGlucose (U) [Mass/Vol]NegativeNEGATIVEKettering Health MiamisburgKetones Ql (U)NegativeNEGATIVEKettering Health MiamisburgpH (U)5.5 [pH]5.0-9.0Kn[facility] Community Hospitalpecific gravity (U) [Rel density] 1.0101.005-1.025[facility] MiamisburgUrobilinogen Qn (U)0.2 {Bushra'U}/dL0.2-1.0[facility]burgLaboratory - Specimen informationon 85-03-8159Hzfjzcxlii (U)CLEARCLEARFRegency Hospital ToledoColor (U)LT. YELLOWYELLOWKettering Health MiamisburgLaboratory - Urinalysison 99-24-1559Yuhifeaqn esterase Test strip Ql (U)NegativeNEGATIVE [facility] MiamisburgNitrite Ql (U)NegativeNEGATIVEKettering Health MiamisburgProtein (U) [Mass/Vol]22.8 mg/dLHigh<=11.9[facility]amisburgProtein Ql (U)TRACE mg/dLNEG/TRACEKettering Health MiamisburgLeukocytes [#/volume] corrected for nucleated erythrocytes in Blood by Automated counon 73-45-6978RNH corrected for nucl RBC Auto (Bld) [#/Vol]Leukocytes [#/volume] corrected for nucleated erythrocytes in Blood by Automated counHigh4.0-11.0UC HealthH Auto (RBC) [Entitic mass]on 63-81-6283QBE (RBC) [Entitic mass]MCH [Entitic mass] by Automated count25.9-34.0UC HealthHC Auto (RBC) [Mass/Vol]on 92-66-0334CNTA (RBC) [Mass/Vol]MCHC [Mass/volume] by Automated count29.9-35.2FSt. Vincent HospitalV Auto (RBC) [Entitic vol]on 01-93-5684URZ (RBC) [Entitic vol]MCV [Entitic volume] by Automated count 80.0-94.0[facility]amisburgMicroalbumin [Mass/volume] in Urineon 57-37-4495Ylkvvwv DL <= 20 mg/L (U) [Mass/Vol]Microalbumin [Mass/volume] in Urine<=30.0[facility]burgNo Panel Informationon 20-21-113023- Hydroxy Vitamin D Total51.6 ng/mLKettering Health MiamisburgComment on above:<20 ng/mL Vit D jedppinmw98-<30 ng/mL Vit D -544 ng/mL Vit D sufficient>100 ng/mL Potential ToxicityParathyroid Hormone (Intact)59 pg/mL 15-65[facility] MiamisburgComment on above:Performed at: [facility] [id number] Director: Alvaro Verde PhD, Phone: [phone] Level4.3 mg/dL2.6-4.7FRegency Hospital ToledoUrine Occult BloodTRACE-INEGATIVEKettering Health MiamisburgUrine Random Fbdopohqxy09.74 mg/dL20.00-300.00[facility] MiamisburgPlatelet mean volume Auto (Bld) [Entitic vol]on 30-88-5139Lbzawgdx mean volume (Bld) [Entitic vol]Platelet mean volume [Entitic volume] in Blood by Automated count9.5-13.5FRegency Hospital ToledoPlatelets Auto (Bld) [#/Vol]on 60-35-7530Bzvrmxuju (Bld) [#/Vol]Platelets [#/volume] in Blood by Automated dovif296-616MsntckejjKettering Health MiamisburgRBC Auto (Bld) [#/Vol]on 11-29-1289KTH (Bld) [#/Vol]Erythrocytes [#/volume] in Blood by Automated count Low4.70-6.10Knox Community Hospitalerum or plasma anion gap determinationon 49-50-1997Yegnc gap [Moles/Vol]Serum or plasma anion gap determinationKettering Health MiamisburgUrine microalbumin/creatinine mass ratioon 88-03-8088Jdvyipa/Creatinine DL <= 20 mg/L (U) [Mass ratio]Urine microalbumin/creatinine mass ratioHigh0.0-29.9[facility] Comment on above:NO MICROALBUMINURIA 0-29 MG/GCLINICAL MICROALBUMINURIA 30-300 MG/GMACROALBUMINURIA >300 MG/GUrine protein/creatinine ratioon 03-30-2024 Protein/Creatinine (U) [Ratio]Urine protein/creatinine ratioKettering Health Miamisburg36on 45-11-894260Boickct informed of normal testing.Normal [facility]36on 75-17-999091Twiwqdssr stress test from 01/16/2024: MD Nikki Olguin MA Please let the patient know his stress test shows no evidence of ischemia or the need for a cardiac catheterization Thank you Patient also had labs and echo. Were you able to review those as well?Normal [facility] HospitalALL LIPID PROFILE (FASTING)on 03-49-4162CBVF HDL RATIO2.5NOMS HealthcareComment on above:3.3 - 4.4 LOW RISK 4.4 - 7.1 AVERAGE RISK 7.1 - 11.0 MODERATE RISK >11.0 HIGH RISK Cholesterol [Mass/Vol]117 mg/dLNINF - 200 mg/dLNOHI HealthcareCholesterol in HDL [Mass/Vol]47 mg/dL40 - 60 mg/dLNOHI HealthcareComment on above:> or =60 mg/dl - LOW CARDIOVASCULAR RISK <40 mg/dl - HIGH CARDIOVASCULAR RISK Interpretation and review of laboratory resultsAbnormalNOMS HealthcareMagnesium [Mass/Vol]37.0 mg/dLNOHI HealthcareComment on above:<100 mg/dl OPTIMAL 100-129 mg/dl NEAR OR ABOVE OPTIMAL 130-159 mg/dl BORDERLINE HIGH 160-189 mg/dl HIGH >190 mg/dl VERY HIGH Magnesium [Mass/Vol]33.0 mg/dLNOHI HealthcareTriglyceride [Mass/Vol]165 mg/dL HighNINF - 150 mg/dLNOHI HealthcareCA ECHO DOPPLER COMPLETEon 38-82-2011[place] [address] Cardiology Report Signed Patient: CHELSEA DIEGO Jr. MR#: [id number] : 1950 Acct:[id number] Age/Sex: 73 / M ADM Date: 01/16/24 Loc: [place] Attending Dr: Ronel Aquino M.D. Ordering Physician: Ronel Aquino M.D. Date of Service: 01/16/24 Procedure(s): CA echo doppler complete Accession Number(s): [id number] cc: Ronel Aquino M.D.; Tejas Stevens M.D. Patient Name: CHELSEA DIEGO MR#: [id number] : 1950 Exam Date: 01/16/2024 Ordering Doctor: [...] Pressure: 96.05 ml, 96.05 ml Dictated by: Alec Blackman M.D. on 01/16/2024 at 13:05 Approved by: Alec Blackman M.D. on 01/16/2024 at 13:11 Dictated By: ALEC BLACKMAN Signed (more content not included)...TBHRadiology, Radiologist, MD - 01/16/2024 [place] [address] Cardiology Report Signed Patient: CHELSEA DIEGO Jr. MR#: [id number] : 1950 Acct:[id number] Age/Sex: 73 / M ADM Date: 01/16/24 Loc: [place] Attending Dr: Ronel Aquino M.D. Ordering Physician: Ronel Aquino M.D. Date of Service: 01/16/24 Procedure(s): CA echo doppler complete Accession Number(s): [id number] cc: Ronel Aquino M.D.; Tejas Stevens M.D. Patient Name: CHELSEA DIEGO MR#: [id number] : 1950 Exam Date: 01/16/2024 Ordering Doctor: [...] Pressure: 96.05 ml, 96.05 ml Dictated by: Alec Blackman M.D. on 01/16/2024 at 13:05 Approved by: Alec Blackman M.D. on 01/16/2024 at 13:11 Dictated By: ALEC BLACKMAN Signed By: 01/16/24 1312 DD/ 1311 TD/TT: Slab Tripper: [facility] HealthcareRadiology Study observation (narrative)[facility] CenterCA ECHO DOPPLER COMPLETEOrdered By: Radiologist Radiology on 39-35-1204WQMV Healthcare Work Phone: [facility] LIVER PANELon 07-89-0364Vziolxq [Mass/Vol]3.4 g/dL3.4 - 5.0 g/dLNOHI HealthcareALBUMIN GLOBULIN RATIO0.9NOHI HealthcareALP [Catalytic activity/Vol]99 U/L46 - 116 U/LNOMS HealthcareALT [Catalytic activity/Vol]28 U/L16 - 63 U/LNOMS HealthcareAST [Catalytic activity/Vol]15 U/L 15 - 37 U/LNOMS HealthcareBilirubin [Mass/Vol]0.3 mg/dL0.2 - 1.0 mg/dLNOMS HealthcareBilirubin.indirect [Mass/Vol]0.1 mg/dL0.0 - 0.2 mg/dLNOMS Healthcare Globulin (S) [Mass/Vol]4.0 g/dLNOMS HealthcareProtein [Mass/Vol]7.4 g/dL6.4 - 8.2 g/dLNOHI HealthcareNM JESÚS PERF SPECT REST STRon 22-42-2093[place] [address] Nuclear Medicine Report Signed Patient: CHELSEA DIEGO Jr. MR#: [id number] : 1950 Acct:[id number] Age/Sex: 73 / M ADM Date: 01/16/24 Loc: NM Attending Dr: Ronel Aquino M.D. Ordering Physician: Ronel Aquino M.D. Date of Service: 01/16/24 Procedure(s): NM jesús perf SPECT rest str Accession Number(s): [id number] cc: Ronel Aquino M.D.; Tejas Stevens M.D. Patient Name: CHELSEA DIEGO MR#: [id number] : 1950 Exam Date: 01/16/2024 Ordering Doctor: DR Ronel Aquino M.D. RADIOLOGY REPORT PROCEDURE: NM JESÚS PERF SPECT REST STR COMPARISON: None. INDICATIONS: [...] Signed By: 01/16/24 1438 DD/ 37 TD/TT: Slab Tripper:TBHRadiology, Radiologist, - 01/16/2024 [place] [address] Nuclear Medicine Report Signed Patient: CHELSEA DIEGO Jr. MR#: [id number] : 1950 Acct:[id number] Age/Sex: 73 / M ADM Date: 01/16/24 Loc: NM Attending Dr: Ronel Aquino M.D. Ordering Physician: Ronel Aquino M.D. Date of Service: 01/16/24 Procedure(s): NM jesús perf SPECT rest str Accession Number(s): [id number] cc: Ronel Aquino M.D.; Tejas Stevens M.D. Patient Name: CHELSEA DEIGO MR#: [id number] : 1950 Exam Date: 01/16/2024 Ordering Doctor: DR Ronel Aquino M.D. RADIOLOGY REPORT PROCEDURE: NM JESÚS PERF SPECT REST STR COMPARISON: None. INDICATIONS: [...] Dictated By: Fab Lindo M.D. Signed By: 01/16/241437 DD/ 37 TD/TT: Slab Tripper: [facility] CenterRadiology Study observation (narrative)[facility] JESÚS PERF SPECT REST STROrdered By: Radiologist Radiology on 49-20-2812MWTYSaint John's Breech [facility] Center Work Phone: No Panel Informationon 90-96-5015VMTLBAAVKJJAY HealthcareProstate specific Ag [Mass/Vol]on 75-73-1302BWXNRVBJR SPEC ANT<0.01 Normal0.00-4.00ProMemorial Hermann–Texas Medical CenterComment on above:Result Comment: The method used for this test is C[employer] [place] DXI chemiluminescent immunoassay. Values obtained by different assay methods cannot be used interchangeably.Performed By: #### [id number] #### [facility] ([id number]) [address] [place], [place] [address]Rbwbtz Visiton 65-17-9555Ihugob-up [id number] Chelsea Diego JR 1950 M Date Provider Department Center 12/29/2023 RONEL NIXON Family History Problem Relation Age of Onset Diabetes Mother Family Status - Relation Status Age at Mother Level of Service:50[address] [place] OFFICE/OUTPATIENT ESTABLISHED MOD MDM [address] [facility] [facility] HospitalAlbumin [Mass/volume] in Serum or Plasmaon 79-73-3769Kxctsnu [Mass/Vol]3.4 g/dL2.9-4.4FRegency Hospital Toledo Erythrocyte distribution width Auto (RBC) [Ratio]on 24-78-9450Nojfaskppep distribution width (RBC) [Ratio]13.2 %11.0-15.0[facility] Estimated glomerular filtration rate (GFR) non- Americanon 12-23-2023 GFR/1.73 sq M.predicted among non-blacks MDRD (S/P/Bld) [Vol rate/Area]27 mL/min/{1.73_m2}Low>=60[facility] MiamisburgHematocrit Auto (Bld) [Volume fraction]on 99-50-2712Mgkypaqzfb (Bld) [Volume fraction]32.7 %Low 42.0-54.0[facility] MiamisburgHemoglobin [Mass/volume] in Bloodon 12-83-5855Wncxpyadmk (Bld) [Mass/Vol]10.3 g/dLLow14.0-18.0[facility] MiamisburgIgA [Mass/volume] in Serum or Plasmaon 71-12-1533TzL [Mass/Vol]377 mg/eV40-380FrxbbpuytKettering Health MiamisburgIgG [Mass/volume] in Serum or Plasmaon 38-64-5123YrX [Mass/Vol]1633 mg/lYWjhjmmuq350-0545TlpovcwlaKettering Health MiamisburgIgM [Mass/volume] in Serum or Plasmaon 49-31-0559QyI [Mass/Vol]49 mg/sV33-830CnqnxptyjKettering Health MiamisburgIron binding capacity [Mass/volume] in Serum or Plasmaon 02-17-9725Zwuj binding capacity [Mass/Vol]257.0 ug/dL 250.0-450.0[facility] MiamisburgIron saturation [Mass Fraction] in Serum or Plasmaon 32-73-8930Mstx saturation [Mass fraction]21.0 %[facility]amisburgLaboratory - Chemistry and Chemistry - challengeon 36-96-9870Aiuuskk [Mass/Vol]3.2 g/dLLow3.4-5.0[facility] Calcium [Mass/Vol]8.6 mg/dL8.5-10.1FRegency Hospital ToledoChloride [Moles/Vol]104 mmol/E70-978PrqmsvilsKettering Health MiamisburgCO2 [Moles/Vol]27.4 mmol/L21.0-32.0[facility] MiamisburgCobalamin (Vitamin B12) [Mass/Vol]439.0 pg/mL193.0-986.0[facility] MiamisburgCreatinine [Mass/Vol]2.41 mg/dLHigh0.70-1.30[facility] MiamisburgFerritin [Mass/Vol]468.0 ng/mQRtvk71.0-388.0[facility]amisburgGFR/1.73 sq M.predicted MDRD (S/P/Bld) [Vol rate/Area]32 mL/min/{1.73_m2}Low>=60[facility] MiamisburgGlucose [Mass/Vol]177 mg/iXTxuy18-321CxqhmetouKettering Health MiamisburgIron [Mass/Vol]54.0 ug/dLLow65.0-175.0[facility] MiamisburgMagnesium [Mass/Vol]2.1 mg/dL1.8-2.4FRegency Hospital Toledo Potassium [Moles/Vol]4.8 mmol/L3.5-5.1FSelect Medical Specialty Hospital - Cincinnati Northodium [Moles/Vol]137 mmol/K637-784KsdgkabqzKettering Health MiamisburgUrate [Mass/Vol]6.2 mg/dL3.5-7.2FRegency Hospital ToledoUrea nitrogen [Mass/Vol]44.0 mg/dL High7.0-18.0[facility] MiamisburgUrea nitrogen/Creatinine [Mass ratio]18.3 mg/mgKettering Health MiamisburgLaboratory - Urinalysison 11-49-6637Fikuwhl (U) [Mass/Vol]129.2 mg/dLHigh<=11.9[facility] MiamisburgLeukocytes [#/volume] corrected for nucleated erythrocytes in Blood by Automated counon 14-13-9166PKT corrected for nucl RBC Auto (Bld) [#/Vol]11.6 10 3/uLHigh4.0-11.0UC HealthH Auto (RBC) [Entitic mass]on 40-62-4100TWC (RBC) [Entitic mass]29.5 pg25.9-34.0[facility] MiamisburgMCHC Auto (RBC) [Mass/Vol]on 04-53-3809MVET (RBC) [Mass/Vol]31.5 g/dL 29.9-35.2FSt. Vincent HospitalV Auto (RBC) [Entitic vol]on 29-36-5243BVX (RBC) [Entitic vol]93.7 fL80.0-94.0[facility] MiamisburgNo Panel Informationon 16-33-360957768171-Gigqzpi Vitamin D Total28.7 ng/mL [facility] MiamisburgComment on above:<20 ng/mL Vit D natxrqpfq99- <30 ng/mL Vit D eklxwpjaldhv19-833 ng/mL Vit D sufficient>100 ng/mL Potential ToxicityFolate9.00 ng/mL8.60-58.90[facility] MiamisburgParathyroid Hormone (Intact)56 pg/nS78-50VwpjbxjrtKettering Health MiamisburgComment on above: Performed at: [facility] [id number] Director: Alvaro Verde PhD, Phone: [phone] Level5.2 mg/dLHigh 2.6-4.7FRegency Hospital ToledoProtein Electrophoresis M-SpikeNot Observed g/dLNot ObservedKettering Health MiamisburgProtein Electrophoresis NoteComment.[facility] MiamisburgComment on above: Protein electrophoresis scan will follow via computer,mail, or glycerin supervisor delivery.Performed at: [facility] [id number] Director: Alvaro Verde PhD, Phone: [phone] TestCOMMENT.[facility] MiamisburgComment on above:Test Ordered: [id number] Protein Electro, 24-Hour UrineProtein,Total,Urine 135.6 mg/dL CB Reference Range: Not Estab.Prot,24hr calculated 1932 [H ] mg/24 hr CB Reference Range: 30-150Albumin, U 61.7 % CBReference Range: .Mrzdu-6-Kpwwliie, U 5.5 % CB Reference Range: .Nniqo-1-Ouztyqxu, U 5.1 % CB Reference Range: .Beta Globulin, U 11.3 % CB Reference Range: .Gamma Globulin, U 16.4 % CB Reference Range: .M- Mitesh, % Note: % CB Not Observed Reference Range: Not ObservedM-Mitesh, mg/24 hr 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 [employer] NOLAB Reference Range: .Please note: Comment CB Reference Range: .Protein electrophoresis scan will follow via computer,mail, or glycerin supervisor delivery.Performed at: [facility] LabcoBrianna [place] [id number] Director: Alvaro Verde PhD, Phone: [phone] mean volume Auto (Bld) [Entitic vol]on 43-06-4395Cslzqlcz mean volume (Bld) [Entitic vol] 10.1 fL9.5-13.5FRegency Hospital ToledoPlatelets Auto (Bld) [#/Vol]on 38-47-4070Rqhdpyhpw (Bld) [#/Vol]370 10 3/vY297-771EgzkftenaKettering Health MiamisburgProtein [Mass/time] in 24 hour Urineon 38-64-8459Engkcld (24H U) [Mass/Time]1841.1 mg/24hrHigh<=149.1FRegency Hospital ToledoProtein [Mass/volume] in Serum or Plasmaon 72-56-5023Mtanpax [Mass/Vol]7.0 g/dL6.0-8.5 [facility] MiamisburgRBC Auto (Bld) [#/Vol]on 62-14-1061ZXR (Bld) [#/Vol]3.49 10 6/uLLow4.70-6.10[facility] Hospitalerum globulin measurement (mass/volume)on 64-09-1085Nugxalsa (S) [Mass/Vol]3.6 g/dL2.2-3.9 [facility] Hospitalerum or plasma albumin/globulin mass ratioon 11-78-9300Khcltqm/Globulin [Mass ratio]1.0 {ratio}0.7-1.7FSelect Medical Specialty Hospital - Cincinnati Northerum or plasma alpha 1 globulin measurement by electrophoresis (mass/volume)on 38-29-2868Tuvyl 1 globulin Elph [Mass/Vol]0.2 g/dL0.0-0.4 [facility] Hospitalerum or plasma alpha 2 globulin measurement by electrophoresis (mass/volume)on 12-69-1628Hsvpz 2 globulin Elph [Mass/Vol]0.9 g/dL0.4-1.0[facility] Hospitalerum or plasma anion gap determinationon 22-43-7142Wxskq gap [Moles/Vol]10.4 mmol/LFSelect Medical Specialty Hospital - Cincinnati Northerum or plasma beta globulin measurement by electrophoresis (mass/volume)on 45-47-7878Wyhb globulin Elph [Mass/Vol]1.0 g/dL0.7-1.3FSelect Medical Specialty Hospital - Cincinnati Northerum or plasma gamma globulin measurement by electrophoresis (mass/volume)on 02-61-5451Vnhgy globulin Elph [Mass/Vol]1.6 g/dL 0.4-1.8[facility] Hospitalerum or plasma immunoelectrophoresis interpretationon 07-11-5343Vhqorsbxjnxzkl IEP [Interp]Comment.[facility]amisburgComment on above:No monoclonality detected.Urine volume measurementon 35-81-3244Ztyubpcm volume (U)1425 mL/24hMetroHealth Main Campus Medical CenterRT PULMONARY FUNCTION TESTon 20-31-6641[place] [address] Respiratory Report Signed Patient: CHELSEA DIEGO Jr. MR#: [id number] : 1950 Acct:[id number] Age/Sex: 72 / M ADM Date: 12/08/23 Loc: CARD Attending Dr: CHIQUIS GARRETT Ordering Physician: CHIQUIS GARRETT Date of Service: 12/08/23 Procedure(s): RT pulmonary function test Accession Number(s): [id number] cc: [facility] Test Date: 2023-12-08 Pat Name: CHELSEA DIEGO Department: Room: - Gender: Male Sales Commissions Analyst: Jessica Sofia RRT : 1950 Requested By: [id number] Order Number: [id number] Reading MD: Fabiola Fernandes Interpretive Statements Pulmonary function testing was completed according to ATS criteria. Findings were considered accurate and reproducible, with exception of DLCO which did not meet ATS standards. Both pre- and post-bronchodilator values utilized for spirometry. Spirometry (based on pre-bronchodilator values): -FEV1/FVC: Normal @ 74% -FEV1: Normal @ 83% -FVC: Normal @ 86% -IFB75-88%: Reduced @ 74% -There is no significant [...] Electronically Signed On 12-10-2023 13:09:26 EDT by Fabiola Fernandes Dictated By: Fabiola Fernandes D.O. Signed By: 12/10/23 1309 12/10/23 1309 DD/ 1327 TD/TT: Slab Tripper:TBHRadiology, Radiologist, - 12/10/2023 [place] [address] Respiratory Report Signed Patient: CHELSEA DIEGO Jr. MR#: [id number] : 1950 Acct:[id number] Age/Sex: 72 / M ADM Date: 12/08/23 Loc: CARD Attending Dr: CHIQUIS GARRETT Ordering Physician: CHIQUIS GARRETT Date of Service: 12/08/23 Procedure(s): RT pulmonary function test Accession Number(s): [id number] cc: [facility] Test Date: 2023-12-08 Pat Name: CHELSEA DIEGO Department: Room: - Gender: Male Sales Commissions Analyst: Jessica Sofia RRT : 1950 Requested By: [id number] Order Number: [id number] Reading MD: Fabiola Fernandes Interpretive Statements Pulmonary function testing was completed according to ATS criteria. Findings were considered accurate and reproducible, with exception of DLCO which did not meet ATS standards. Both pre- and post-bronchodilator values utilized for spirometry. Spirometry (based on pre-bronchodilator values): -FEV1/FVC: Normal @ 74% -FEV1: Normal @ 83% -FVC: Normal @ 86% -LRP52-92%: Reduced @ 74% -There is no significant [...] Electronically Signed On 12-10-2023 13:09:26 EDT by Fabiola Fernandes Dictated By: Fabiola Fernandes D.O. Signed By: 12/10/23 1309 12/10/23 1309 DD/ 1327 TD/TT: Slab Tripper: JOSE Abraham PULMONARY FUNCTION TESTOrdered By: Radiologist Radiology on [id number] [employer] Work Phone: RT PULMONARY FUNCTION TESTon 53-90-7630Wwkfgskfu Study observation (narrative)JOSE HealthcareLaboratory - Chemistry and Chemistry - challengeon 42-90-2793Lhbqjlr [Mass/Vol]2.4 g/dLFirelands Regional Medical CenterALP [Catalytic activity/Vol]66 U/[facility] CenterALT [Catalytic activity/Vol]13 U/[facility] CenterAST [Catalytic activity/Vol]16 U/[facility] CenterBilirubin [Mass/Vol]0.5 mg/dLKettering Health MiamisburgCalcium [Mass/Vol]8.0 mg/dLKettering Health MiamisburgChloride [Moles/Vol]108 mmol/[facility] CenterCO2 [Moles/Vol]19 mmol/[facility] CenterCreatinine [Mass/Vol]1.12 mg/dLKettering Health MiamisburgGlucose [Mass/Vol]164 mg/dL [facility] MiamisburgPotassium [Moles/Vol]5.2 mmol/[facility] CenterProtein [Mass/Vol]5.6 g/dLKnox Community Hospitalodium [Moles/Vol]136 mmol/[facility] CenterUrea nitrogen [Mass/Vol]39 mg/dLKettering Health MiamisburgNo Panel Informationon 94-11-4488Jzhatnfnw GFR (Non- Maqonvad97 mL/[facility]164 mg/dLK[facility]tering Health Miamisburg39 mg/dLK[facility]tering Health Miamisburg1.12 mg/dLK[facility]tering Health Miamisburg136 mmol/[facility]5.2 mmol/[facility]108 mmol/L [facility]19 mmol/[facility]8.0 mg/dLK[facility]tering Health Miamisburg5.6 g/dLK[facility]tering Health [facility] 2.4 g/dLK[facility]tering Health Miamisburg0.5 mg/dLK[facility]tering Health Miamisburg16 U/[facility]13 U/[facility]66 U/[facility]70 mL/[facility] HospitalBedside Xqztaql590GwrrdgcthKettering Health Miamisburg132[facility]36on 49-60-711082Ns are not his primary care team. He was seen at [facility]. He either needs to call his PCP or call [facility].NormalUnTogus VA Medical CenterBASIC METABOLIC PANELon 44-80-6860Fosma gap [Moles/Vol]11 mmol/LNormal7-20UnTogus VA Medical CenterComment on above:Performed By: #### [id number] #### [facility] ([facility]) [address] [place] [address]Tmfmegb [Mass/Vol]8.1 mg/dLLow8.6-10.3UnTogus VA Medical CenterComment on above:Performed By: #### [id number] #### [facility] ([facility]) [address] [place] [address]Wheplbry [Moles/Vol]110 mmol/HDwel41-804ChhgfwuloqTogus VA Medical CenterComment on above:Performed By: #### [id number] #### [facility] ([facility]) [address] [place] [address]IU9 [Moles/Vol]21 mmol/NPrkvvn50-95DacrlqbpxbTogus VA Medical CenterComment on above:Performed By: #### [id number] #### [facility] ([facility]) [address] [place] [address]Ebbnllizmd [Mass/Vol]1.04 mg/dLNormal0.70-1.30UnTogus VA Medical CenterComment on above:Performed By: #### [id number] #### [facility] ([facility]) [address] [place] [address]WFHAFHGCRP FILTRATION RATE ML/MIN/1.73 SQ M.RXRJDXVRP46.8 mL/min/1.73m*2Normal>60.0UnTogus VA Medical CenterComment on above: Result Comment: [facility]???s estimated glomerular filtration rate (eGFR) will no [...] potential consequences that do not disproportionately affect anyone group of individuals.Performed By: #### [id number] #### [facility] ([facility]) [address] [place] [address]Qmvupxn [Mass/Vol]78 mg/bSOgkezf50-390IlszhlzlodTogus VA Medical CenterComment on above:Performed By: #### [id number] #### [facility] ([facility]) [address] [place] [address]Xxromxgxv [Moles/Vol]4.6 mmol/LNormal3.5-5.1UnTogus VA Medical CenterComment on above:Performed By: #### [id number] #### [facility] ([facility]) [address] [place] [address]Gfbsml [Moles/Vol]137 mmol/NZnjsjc462-109NgggomtgzvTogus VA Medical CenterComment on above:Performed By: #### [id number] #### [facility] ([facility]) [address] [place], [place] [address]Qxqt nitrogen [Mass/Vol]30 mg/dLHigh7-25UnTogus VA Medical CenterComment on above:Performed By: #### [id number] #### [facility] ([facility]) [address] [place] [address]FYSG NITROGEN/CREATININE (MASS RATIO) IN SER/PLAS28.8Normal [facility] HospitalComment on above:Performed By: #### [id number] #### [facility] ([facility]) [address] [place] [address]YAUvw 68-55-6164Tqhsyvzgylh distribution width (RBC) [Ratio]16.4 %High11.5-15.0UnTogus VA Medical CenterComment on above:Performed By: #### [id number] #### [facility] ([facility]) [address] [place], [place] [address]WCJFLVKYIOL MEAN CORPUSCULAR HEMOGLOBIN CONCENTRATION (G/DL) BY XEUIHTBIR23.3 g/dMOjbnax90.0-35.0UnTogus VA Medical CenterComment on above:Performed By: #### [id number] #### [facility] ([facility]) [address] [place], [place] [address]Qtmkozezsl (Bld) [Volume fraction]29.4 %Low39.0-55.0UnTogus VA Medical CenterComment on above:Performed By: #### [id number] #### [facility] ([facility]) [address] [place] [address]Yldakifkrp (Bld) [Mass/Vol]9.5 g/dLLow13.0-17.0UnTogus VA Medical CenterComment on above:Performed By: #### [id number] #### [facility] ([facility]) [address] [place] [address]TIH (RBC) [Entitic mass]29.0 swWbbfyu68.0-33.0UnTogus VA Medical CenterComment on above:Performed By: #### [id number] #### [facility] ([facility]) [address] [place] [address]PDN (RBC) [Entitic vol]89.6 hOTummww83.0-98.0UnTogus VA Medical CenterComment on above:Performed By: #### [id number] #### [facility] ([facility]) [address] [place] [address]JMDBKKAGS (10*3/UL) IN BLOOD AUTOMATED DUPCS856 10*3/uLHigh 150-400UnTogus VA Medical CenterComment on above:Performed By: #### [id number] #### [facility] ([facility]) [address] [place] [address]FEL (Bld) [#/Vol]3.28 10*6/uLLow4.20-5.70UnTogus VA Medical CenterComment on above:Performed By: #### [id number] #### [facility] ([facility]) [address] [place] [address]VLL (Bld) [#/Vol]9.80 10*3/uLNormal4.00-10.60UnTogus VA Medical CenterComment on above:Performed By: #### [id number] #### [facility] ([facility]) [address] [place] [address]WCOCZFAIOkw 82-61-2337Vllphzryl [Mass/Vol]1.8 mg/dLLow1.9-2.7 [facility] HospitalComment on above:Performed By: #### [id number] #### [facility] ([facility]) [address] [place] [address]FZVXKNZPEFia 76-83-6011Jtjtvxhhu [Mass/Vol]5.1 mg/dLHigh2.5-5.0 [facility] HospitalComment on above:Performed By: #### [id number] #### [facility] ([facility]) [address] [place] [address]ZIGEB METABOLIC PANELon 25-61-0905Wekix gap [Moles/Vol]14 mmol/L Normal7-20UnTogus VA Medical CenterComment on above:Performed By: #### [id number] #### [facility] ([facility]) [address] [place] [address]Bbzmaaa [Mass/Vol]8.0 mg/dLLow8.6-10.3UnTogus VA Medical CenterComment on above:Performed By: #### [id number] #### [facility] ([facility]) [address] [place] [address]Ynwifdef [Moles/Vol]108 mmol/ZPgjb55-191JcfqvplhdhTogus VA Medical CenterComment on above:Performed By: #### [id number] #### [facility] ([facility]) [address] [place] [address]WB3 [Moles/Vol]19 mmol/RShb30-40RqfprnquhaTogus VA Medical CenterComment on above:Performed By: #### [id number] #### [facility] ([facility]) [address] [place] [address]Pjdidsaxdt [Mass/Vol]1.27 mg/dLNormal0.70-1.30UnTogus VA Medical CenterComment on above:Performed By: #### [id number] #### [facility] ([facility]) [address] [place], [place] [address]ISKKCVCUIH FILTRATION RATE ML/MIN/1.73 SQ M.TUQVQCZHU07.4 mL/min/1.73m*2Normal>60.0UnTogus VA Medical CenterComment on above: Result Comment: [facility]???s estimated glomerular filtration rate (eGFR) will no [...] potential consequences that do not disproportionately affect anyone group of individuals.Performed By: #### [id number] #### [facility] ([facility]) [address] [place], [place] [address]Tawztmm [Mass/Vol]66 mg/yXLqh56-802SdzrxxiqjxTogus VA Medical CenterComment on above:Performed By: #### [id number] #### [facility] ([facility]) [address] [place], [place] [address]Ywgcvfrus [Moles/Vol]4.6 mmol/LNormal3.5-5.1UnTogus VA Medical CenterComment on above:Performed By: #### [id number] #### [facility] ([facility]) [address] [place], [place] [address]Tukixk [Moles/Vol]136 mmol/BDkwxmd176-844HzpuiksldkTogus VA Medical CenterComment on above:Performed By: #### [id number] #### [facility] ([facility]) [address] [place], [place] [address]Caok nitrogen [Mass/Vol]34 mg/dLHigh7-25UnTogus VA Medical CenterComment on above:Performed By: #### [id number] #### [facility] ([facility]) [address] [place], [place] [address]ZCJW NITROGEN/CREATININE (MASS RATIO) IN SER/PLAS26.8Normal [facility] HospitalComment on above:Performed By: #### [id number] #### [facility] ([facility]) [address] [place] [address]FVSvt 80-02-2922Gejzgcdttli distribution width (RBC) [Ratio]16.9 %High11.5-15.0UnTogus VA Medical CenterComment on above:Performed By: #### [id number] #### [facility] ([facility]) [address] [place] [address]YYPTXVZZBYT MEAN CORPUSCULAR HEMOGLOBIN CONCENTRATION (G/DL) BY QSOVYBIHA48.4 g/pXHanlwc57.0-35.0UnTogus VA Medical CenterComment on above:Performed By: #### [id number] #### [facility] ([facility]) [address] [place] [address]Mooyvkwrkn (Bld) [Volume fraction]28.4 %Low39.0-55.0UnTogus VA Medical CenterComment on above:Performed By: #### [id number] #### [facility] ([facility]) [address] [place], [place] [address]Rxyzfccvon (Bld) [Mass/Vol]9.2 g/dLLow13.0-17.0UnTogus VA Medical CenterComment on above:Performed By: #### [id number] #### [facility] ([facility]) [address] [place] [address]YJC (RBC) [Entitic mass]29.7 zxSnpzrt29.0-33.0UnTogus VA Medical CenterComment on above:Performed By: #### [id number] #### [facility] ([facility]) [address] [place] [address]NNJ (RBC) [Entitic vol]91.6 tHBwkuhj45.0-98.0UnTogus VA Medical CenterComment on above:Performed By: #### [id number] #### [facility] ([facility]) [address] [place] [address]LOHNKKIRB (10*3/UL) IN BLOOD AUTOMATED PNTIX050 10*3/uLHigh 150-400UnTogus VA Medical CenterComment on above:Performed By: #### [id number] #### [facility] ([facility]) [address] [place] [address]MPV (Bld) [#/Vol]3.10 10*6/uLLow4.20-5.70UnTogus VA Medical CenterComment on above:Performed By: #### [id number] #### [facility] ([facility]) [address] [place] [address]BBK (Bld) [#/Vol]10.08 10*3/uLNormal4.00-10.60UnTogus VA Medical CenterComment on above:Performed By: #### [id number] #### [facility] ([facility]) [address] [address]QXIJKCBEEkf 98-72-1968Dnadsctmd [Mass/Vol]1.8 mg/dLLow1.9-2.7 [facility] HospitalComment on above:Performed By: #### [id number] #### [facility] ([facility]) [address] [place] [address]FXOKBCPXEBpi 79-00-0465Fdggdmqlu [Mass/Vol]5.3 mg/dLHigh2.5-5.0 [facility] HospitalComment on above:Performed By: #### [id number] #### [facility] ([facility]) [address] [place] [address]MHYZV METABOLIC PANELon 82-53-9223Wwfla gap [Moles/Vol]14 mmol/L Normal7-20UnTogus VA Medical CenterComment on above:Performed By: #### [id number] #### [facility] ([facility]) [address] [place] [address]Ecmxxcy [Mass/Vol]8.1 mg/dLLow8.6-10.3UnTogus VA Medical CenterComment on above:Performed By: #### [id number] #### [facility] ([facility]) [address] [place] [address]Mukpmejp [Moles/Vol]109 mmol/ZXyid98-438HtwsuakupsTogus VA Medical CenterComment on above:Performed By: #### [id number] #### [facility] ([facility]) [address] [place] [address]VF1 [Moles/Vol]21 mmol/KZccjor49-57XqfoujgcdtTogus VA Medical CenterComment on above:Performed By: #### [id number] #### [facility] ([facility]) [address] [place] [address]Pplllgkvje [Mass/Vol]1.37 mg/dLHigh0.70-1.30UnTogus VA Medical CenterComment on above:Performed By: #### [id number] #### [facility] ([facility]) [address] [place] [address]MHVITRTWWG FILTRATION RATE ML/MIN/1.73 SQ M.WYOVHWFLV90.1 mL/min/1.73m*2Low>60.0UnTogus VA Medical CenterComment on above:Result Comment: [facility]???s estimated glomerular filtration rate (eGFR) will no [...] potential consequences that do not disproportionately affect anyone group of individuals.Performed By: #### [id number] #### [facility] ([facility]) [address] [place] [place] [address]Dhrrodb [Mass/Vol]45 mg/dLInvalid Interpretation Avca23-461 [facility] HospitalComment on above:Performed By: #### [id number] #### [facility] ([facility]) [address] [place] [address]Tutuykcmg [Moles/Vol]4.5 mmol/LNormal3.5-5.1UnTogus VA Medical CenterComment on above:Performed By: #### [id number] #### [facility] ([facility]) [address] [place] [address]Qrrnqq [Moles/Vol]139 mmol/JUdqlpd773-185QgvkbuskdgTogus VA Medical CenterComment on above:Performed By: #### [id number] #### [facility] ([facility]) [address] [place] [address]Vihi nitrogen [Mass/Vol]35 mg/dLHigh7-25UnTogus VA Medical CenterComment on above:Performed By: #### [id number] #### [facility] ([facility]) [address] [place] [place] [address]FRTA NITROGEN/CREATININE (MASS RATIO) IN SER/PLAS25.5Normal [facility] HospitalComment on above:Performed By: #### [id number] #### [facility] ([facility]) [address] [place] [address]PLAta 58-99-2743Wdqptcubifk distribution width (RBC) [Ratio]17.1 %High11.5-15.0UnTogus VA Medical CenterComment on above:Performed By: #### [id number] #### [facility] ([facility]) [address] [place] [address]ZCLHBZFRJIC MEAN CORPUSCULAR HEMOGLOBIN CONCENTRATION (G/DL) BY KGTMBNQNG23.9 g/dLLow32.0-35.0UnTogus VA Medical CenterComment on above:Performed By: #### [id number] #### [facility] ([facility]) [address] [place] [address]Jfphihwduv (Bld) [Volume fraction]28.8 %Low39.0-55.0UnTogus VA Medical CenterComment on above:Performed By: #### [id number] #### [facility] ([facility]) [address] [place], [place] [address]Gbpkhkadwe (Bld) [Mass/Vol]9.2 g/dLLow13.0-17.0UnTogus VA Medical CenterComment on above:Performed By: #### [id number] #### [facility] ([facility]) [address] [place] [address]PHL (RBC) [Entitic mass]29.6 maZnhvdy74.0-33.0UnTogus VA Medical CenterComment on above:Performed By: #### [id number] #### [facility] ([facility]) [address] [place] [address]CQD (RBC) [Entitic vol]92.6 mPHabswy48.0-98.0UnTogus VA Medical CenterComment on above:Performed By: #### [id number] #### [facility] ([facility]) [address] [place] [place] [address]YLCNGOLRE (10*3/UL) IN BLOOD AUTOMATED [id number] 10*3/uLHigh 150-400UnTogus VA Medical CenterComment on above:Performed By: #### [id number] #### [facility] ([facility]) [address] [place] [address]DLW (Bld) [#/Vol]3.11 10*6/uLLow4.20-5.70UnTogus VA Medical CenterComment on above:Performed By: #### [id number] #### [facility] ([facility]) [address] [place] [address]BZM (Bld) [#/Vol]9.83 10*3/uLNormal4.00-10.60UnTogus VA Medical CenterComment on above:Performed By: #### [id number] #### [facility] ([facility]) [address] [place] [address]IDGXQFQURoe 39-24-3739Pfrgcjrxb [Mass/Vol]1.9 mg/dLNormal1.9-2.7 [facility] HospitalComment on above:Performed By: #### [id number] #### [facility] ([facility]) [address] [place] [address]TQVJDIIRWWak 98-90-4[address]Vozldmpgr [Mass/Vol]5.2 mg/dLHigh2.5-5.0 [facility] HospitalComment on above:Performed By: #### [id number] #### [facility] ([facility]) [address] [place] [address]VQKBT METABOLIC PANELon 79-83-6759Oxltc gap [Moles/Vol]11 mmol/L Normal7-20UnTogus VA Medical CenterComment on above:Performed By: #### [id number] #### [facility] ([facility]) [address] [place] [address]Nuffhpq [Mass/Vol]8.2 mg/dLLow8.6-10.3UnTogus VA Medical CenterComment on above:Performed By: #### [id number] #### [facility] ([facility]) [address] [place], [place] [address]Dydbeshy [Moles/Vol]109 mmol/MEelj55-358JlssrltcgbTogus VA Medical CenterComment on above:Performed By: #### [id number] #### [facility] ([facility]) [address] [place] [address]HS7 [Moles/Vol]20 mmol/ZSmi10-18KiaqhycozmTogus VA Medical CenterComment on above:Performed By: #### [id number] #### [facility] ([facility]) [address] [place] [address]Vtryvingtf [Mass/Vol]1.30 mg/dLNormal0.70-1.30UnTogus VA Medical CenterComment on above:Performed By: #### [id number] #### [facility] ([facility]) [address] [place] [address]OWMZWNWJTH FILTRATION RATE ML/MIN/1.73 SQ M.NJXSTPFXH90.7 mL/min/1.73m*2Low>60.0UnTogus VA Medical CenterComment on above:Result Comment: [facility]???s estimated glomerular filtration rate (eGFR) will no [...] potential consequences that do not disproportionately affect anyone group of individuals.Performed By: #### [id number] #### [facility] ([facility]) [address] [place], [place] [address]Kznwtfk [Mass/Vol]76 mg/jZVwxpqe03-844JyqswdinswTogus VA Medical CenterComment on above:Performed By: #### [id number] #### [facility] ([facility]) [address] [place], [place] [address]Pmtrahclh [Moles/Vol]4.3 mmol/LNormal3.5-5.1UnTogus VA Medical CenterComment on above:Performed By: #### [id number] #### [facility] ([facility]) [address] [place], [place] [address]Hxgror [Moles/Vol]136 mmol/WMbdxuu210-964UubspjuispTogus VA Medical CenterComment on above:Performed By: #### [id number] #### [facility] ([facility]) [address] [place], [place] [address]Gich nitrogen [Mass/Vol]33 mg/dLHigh7-25UnTogus VA Medical CenterComment on above:Performed By: #### [id number] #### [facility] ([facility]) [address] [place], [place] [address]WSGS NITROGEN/CREATININE (MASS RATIO) IN SER/PLAS25.4Normal [facility] HospitalComment on above:Performed By: #### [id number] #### [facility] ([facility]) [address] [place], [place] [address]SLXlr 38-04-9550Nwoftpckpco distribution width (RBC) [Ratio]17.3 %High11.5-15.0UnTogus VA Medical CenterComment on above:Performed By: #### [id number] #### [facility] ([facility]) [address] [place], [place] [address]LEIVYTEQFKJ MEAN CORPUSCULAR HEMOGLOBIN CONCENTRATION (G/DL) BY ODGWIIRQJ23.1 g/bUVszgjq60.0-35.0UnTogus VA Medical CenterComment on above:Performed By: #### [id number] #### [facility] ([facility]) [address] [place] [address]Urjtrczgef (Bld) [Volume fraction]27.4 %Low39.0-55.0UnTogus VA Medical CenterComment on above:Performed By: #### [id number] #### [facility] ([facility]) [address] [place] [address]Wwopwtaxas (Bld) [Mass/Vol]8.8 g/dLLow13.0-17.0UnTogus VA Medical CenterComment on above:Performed By: #### [id number] #### [facility] ([facility]) [address] [place] [address]SET (RBC) [Entitic mass]29.4 xpOywsuk67.0-33.0UnTogus VA Medical CenterComment on above:Performed By: #### [id number] #### [facility] ([facility]) [address] [place] [id number] (RBC) [Entitic vol]91.6 vFPpsmtj51.0-98.0UnTogus VA Medical CenterComment on above:Performed By: #### [id number] #### [facility] ([facility]) [address] [place] [address]VSZQPVBVO (10*3/UL) IN BLOOD AUTOMATED [id number] 10*3/uLHigh 150-400UnTogus VA Medical CenterComment on above:Performed By: #### [id number] #### [facility] ([facility]) [address] [place] [address]WHW (Bld) [#/Vol]2.99 10*6/uLLow4.20-5.70UnTogus VA Medical CenterComment on above:Performed By: #### [id number] #### [facility] [address] [place] [address]YZU (Bld) [#/Vol]9.63 10*3/uLNormal4.00-10.60UnTogus VA Medical CenterComment on above:Performed By: #### [id number] #### [facility] ([facility]) [address] [address]UGCWEHBYBko 20-41-0386Zddpweuce [Mass/Vol]2.0 mg/dLNormal1.9-2.7 [facility] HospitalComment on above:Performed By: #### [id number] #### [facility] ([facility]) [address] [place] [address]CMIHKCBNRHdp 25-65-4465Fhyuiqtar [Mass/Vol]5.1 mg/dLHigh2.5-5.0 [facility] HospitalComment on above:Performed By: #### [id number] #### [facility] ([facility]) [address] [place] [address]SZXZI METABOLIC PANELon 80-54-4113Uboww gap [Moles/Vol]12 mmol/L Normal7-20UnTogus VA Medical CenterComment on above:Performed By: #### [id number] #### [facility] ([facility]) [address] [place] [address]Nfwdiqn [Mass/Vol]8.6 mg/dLNormal8.6-10.3UnTogus VA Medical CenterComment on above:Performed By: #### [id number] #### [facility] ([facility]) [address] [place] [address]Vgsdwfzx [Moles/Vol]106 mmol/PIntfxh02-164EglcesmnjhTogus VA Medical CenterComment on above:Performed By: #### [id number] #### [facility] ([facility]) [address] [place] [address]YA8 [Moles/Vol]24 mmol/PLeikod77-95FequqhajiuTogus VA Medical CenterComment on above:Performed By: #### [id number] #### [facility] ([facility]) [address] [place] [address]Ltiwywrwnc [Mass/Vol]1.55 mg/dLHigh0.70-1.30UnTogus VA Medical CenterComment on above:Performed By: #### [id number] #### [facility] ([facility]) [address] [place] [address]HBRNGEGBVR FILTRATION RATE ML/MIN/1.73 SQ M.MOILICKOG99.6 mL/min/1.73m*2Low>60.0UnTogus VA Medical CenterComment on above:Result Comment: The [facility]???s estimated glomerular filtration rate (eGFR) will no [...] potential consequences that do not disproportionately affect anyone group of individuals.Performed By: #### [id number] #### [facility] ([facility]) [address] [place] [address]Xbyctjr [Mass/Vol]70 mg/gHMixyvx78-834AjcegmqgzkTogus VA Medical CenterComment on above:Performed By: #### [id number] #### [facility] ([facility]) [address] [place] [address]Enyhbalfn [Moles/Vol]4.5 mmol/LNormal3.5-5.1UnTogus VA Medical CenterComment on above:Performed By: #### [id number] #### [facility] ([facility]) [address] [place] [address]Cprbqm [Moles/Vol]137 mmol/QVtqtcf279-641EftnbjqlrpTogus VA Medical CenterComment on above:Performed By: #### [id number] #### [facility] ([facility]) [address] [place] [address]Ucrt nitrogen [Mass/Vol]40 mg/dLHigh7-25UnTogus VA Medical CenterComment on above:Performed By: #### [id number] #### [facility] ([facility]) [address] [place], [place] [address]PZFA NITROGEN/CREATININE (MASS RATIO) IN SER/PLAS25.8Normal [facility] HospitalComment on above:Performed By: #### [id number] #### [facility] ([facility]) [address] [facility] [place] [address]PHUuq 59-00-9568Iwggtvzsisp distribution width (RBC) [Ratio]17.1 %High11.5-15.0UnTogus VA Medical CenterComment on above:Performed By: #### [id number] #### [facility] ([facility]) [address] [place], [place] [address]TGPAECKPRHM MEAN CORPUSCULAR HEMOGLOBIN CONCENTRATION (G/DL) BY AVILCAZMU38.7 g/dLLow32.0-35.0UnTogus VA Medical CenterComment on above:Performed By: #### [id number] #### [facility] ([facility]) [address] [place], [place] [address]Jjtjkctfhn (Bld) [Volume fraction]31.2 %Low39.0-55.0UnTogus VA Medical CenterComment on above:Performed By: #### [id number] #### [facility] ([facility]) [address] [place], [place] [address]Fypgctypyw (Bld) [Mass/Vol]9.9 g/dLLow13.0-17.0UnTogus VA Medical CenterComment on above:Performed By: #### [id number] #### [facility] ([facility]) [address] [place], [place] [address]WGM (RBC) [Entitic mass]28.5 ahYsyyqo30.0-33.0UnTogus VA Medical CenterComment on above:Performed By: #### [id number] #### [facility] ([facility]) [address] [place], [place] [address]LUK (RBC) [Entitic vol]89.9 jDMhzswi72.0-98.0UnTogus VA Medical CenterComment on above:Performed By: #### [id number] #### [facility] ([facility]) [address] [address]WPESXLVUH (10*3/UL) IN BLOOD AUTOMATED [id number] 10*3/uLHigh 150-400UnTogus VA Medical CenterComment on above:Performed By: #### [id number] #### [facility] ([facility]) [address] [address]KMQ (Bld) [#/Vol]3.47 10*6/uLLow4.20-5.70UnTogus VA Medical CenterComment on above:Performed By: #### [id number] #### [facility] ([facility]) [address] [address]BHU (Bld) [#/Vol]10.60 10*3/uLNormal4.00-10.60UnTogus VA Medical CenterComment on above:Performed By: #### [id number] #### [facility] ([facility]) [address] [place] [address]GHWODKFQPom 02-83-4006Ciriytbwj [Mass/Vol]2.0 mg/dLNormal1.9-2.7 [facility] HospitalComment on above:Performed By: #### [id number] #### [facility] ([facility]) [address] [address]MCNSPLSAGAzi 94-63-7758Ixcxmmudz [Mass/Vol]5.6 mg/dLHigh2.5-5.0 [facility] HospitalComment on above:Performed By: #### [id number] #### [facility] ([facility]) [address] [place] [address]TLRKM METABOLIC PANELon 09-09-5738Bgayx gap [Moles/Vol]15 mmol/L Normal7-20UnTogus VA Medical CenterComment on above:Performed By: #### [id number] #### [facility] ([facility]) [address] [place] [address]Pqoocjc [Mass/Vol]8.4 mg/dLLow8.6-10.3UnTogus VA Medical CenterComment on above:Performed By: #### [id number] #### [facility] ([facility]) [address] [place] [address]Lbgxemya [Moles/Vol]103 mmol/YOqvxdf89-322XrpsneqwykTogus VA Medical CenterComment on above:Performed By: #### [id number] #### [facility] ([facility]) [address] [place] [address]SY5 [Moles/Vol]22 mmol/HKlwvgi97-28TqhfiqujflTogus VA Medical CenterComment on above:Performed By: #### [id number] #### [facility] ([facility]) [address] [place] [address]Dkpnegjiqt [Mass/Vol]2.36 mg/dLHigh0.70-1.30UnTogus VA Medical CenterComment on above:Performed By: #### [id number] #### [facility] ([facility]) [address] [place] [address]JPMNHMDMOA FILTRATION RATE ML/MIN/1.73 SQ M.GUWQQVZFI47.7 mL/min/1.73m*2Low>60.0UnTogus VA Medical CenterComment on above:Result Comment: The [facility]???s estimated glomerular filtration rate (eGFR) will no [...] potential consequences that do not disproportionately affect anyone group of individuals.Performed By: #### [id number] #### [facility] ([facility]) [address] [place] [address]Drbuqbe [Mass/Vol]36 mg/dLInvalid Interpretation Grof16-753 [facility] HospitalComment on above:Performed By: #### [id number] #### [facility] ([facility]) [address] [place] [address]Wrfwbmujl [Moles/Vol]4.6 mmol/LNormal3.5-5.1UnTogus VA Medical CenterComment on above:Performed By: #### [id number] #### [facility] ([facility]) [address] [place] [address]Kjexzj [Moles/Vol]135 mmol/NUgo010-970MfhbcckjicTogus VA Medical CenterComment on above:Performed By: #### [id number] #### [facility] ([facility]) [address] [place] [address]Qbwt nitrogen [Mass/Vol]52 mg/dLHigh7-25UnTogus VA Medical CenterComment on above:Performed By: #### [id number] #### [facility] ([facility]) [address] [place] [address]JKIH NITROGEN/CREATININE (MASS RATIO) IN SER/PLAS22.0Normal [facility] HospitalComment on above:Performed By: #### [id number] #### [facility] ([facility]) [address] [place] [place], [place] [address]ISZ WITH AUTO DIFFERENTIALon 68-54-2661Chxendggo (Bld) [#/Vol] 0.19 10*3/uLNormal0.00-0.20UnTogus VA Medical CenterComment on above: Performed By: #### [id number] #### [facility] ([facility]) [address] [place], [place] [address]Ouhcztdyl/100 WBC (Bld)1.7 %High0.0-1.0UnTogus VA Medical CenterComment on above:Performed By: #### [id number] #### [facility] ([facility]) [address] [place], [place] [address]Lhwjsiefehg (Bld) [#/Vol]0.62 10*3/uLHigh0.00-0.50UnTogus VA Medical CenterComment on above:Performed By: #### [id number] #### [facility] ([facility]) [address] [place], [place] [address]Ifaxptkmtus/100 WBC (Bld)5.6 %Normal0.0-6.0UnTogus VA Medical CenterComment on above:Performed By: #### [id number] #### [facility] ([facility]) [address] [place] [address]Xcbakusjvai distribution width (RBC) [Ratio]17.2 %High11.5-15.0 [facility] HospitalComment on above:Performed By: #### [id number] #### [facility] ([facility]) [address] [place] [address]HVVQYMBFTQT MEAN CORPUSCULAR HEMOGLOBIN CONCENTRATION (G/DL) BY ZQHICOGOD68.6 g/dLLow32.0-35.0UnTogus VA Medical CenterComment on above:Performed By: #### [id number] #### [facility] ([facility]) [address] [place] [place] [address]Xmnlxunzki (Bld) [Volume fraction]29.7 %Low39.0-55.0UnTogus VA Medical CenterComment on above:Performed By: #### [id number] #### [facility] ([facility]) [address] [place], [place] [address]Cehasotzbv (Bld) [Mass/Vol]9.4 g/dLLow13.0-17.0UnTogus VA Medical CenterComment on above:Performed By: #### [id number] #### [facility] ([facility]) [address] [place], [place] [address]Efzthkto granulocytes (Bld) [#/Vol]0.04 10*3/uLNormal0.00-0.20 [facility] HospitalComment on above:Performed By: #### [id number] #### [facility] ([facility] [address] [place] [place] [address]Xxsuyssg granulocytes/100 WBC (Bld)0.4 %Normal0.0-1.0UnTogus VA Medical CenterComment on above:Performed By: #### [id number] #### [facility] ([facility] [address] [place] [address]Hblrrbjwzkq (Bld) [#/Vol]2.60 10*3/uLNormal1.20-4.00UnTogus VA Medical CenterComment on above:Performed By: #### [id number] #### [facility] ([facility]) [address] [place] [address]Bcpxxuwqhjg/100 WBC (Bld)23.4 %Rchxfz24.0-45.0UnTogus VA Medical CenterComment on above:Performed By: #### [id number] #### [facility] ([facility]) [address] [place] [place] [address]TTQ (RBC) [Entitic mass]28.7 tqKyccqa29.0-33.0UnTogus VA Medical CenterComment on above:Performed By: #### [id number] #### [facility] ([facility]) [address] [place] [place] [address]HXR (RBC) [Entitic vol]90.8 pTJjnqqw88.0-98.0UnTogus VA Medical CenterComment on above:Performed By: #### [id number] #### [facility] ([facility]) [address] [place] [address]Widdjkdit (Bld) [#/Vol]1.32 10*3/uLHigh0.10-1.00UnTogus VA Medical CenterComment on above:Performed By: #### [id number] #### [facility] ([facility]) [address] [place] [address]Vcbbucphj/100 WBC (Bld)11.9 %Normal5.0-12.0UnTogus VA Medical CenterComment on above:Performed By: #### [id number] #### [facility] ([facility]) [address] [place] [address]Mwemlbsdvdf (Bld) [#/Vol]6.33 10*3/uLNormal1.60-7.60UnTogus VA Medical CenterComment on above:Performed By: #### [id number] #### [facility] ([facility]) [address] [place] [address]Mmiznrlxcgt/100 WBC (Bld)57.0 %Hfarro09.0-72.0UnTogus VA Medical CenterComment on above:Performed By: #### [id number] #### [facility] ([facility]) [address] [place] [address]YCRV (PER 100 WBCS) BY AUTOMATED COUNT0.0 %Wydtjs7IfmsnkchhlTogus VA Medical CenterComment on above:Performed By: #### [id number] #### [facility] ([facility]) [address] [place] [address]ZAUBBVAZU (10*3/UL) IN BLOOD AUTOMATED [id number] 10*3/uLHigh 150-400UnTogus VA Medical CenterComment on above:Performed By: #### [id number] #### [facility] ([facility]) [address] [place] [address]BJU (Bld) [#/Vol]3.27 10*6/uLLow4.20-5.70UnTogus VA Medical CenterComment on above:Performed By: #### [id number] #### [facility] ([facility]) [address] [place] [address]MXU (Bld) [#/Vol]11.10 10*3/uLHigh4.00-10.60UnTogus VA Medical CenterComment on above:Performed By: #### [id number] #### [facility] ([facility]) [address] [place] [address]CZPJEQCCWow 21-12-0069Vtkgywrnv [Mass/Vol]2.1 mg/dLNormal1.9-2.7 [facility] HospitalComment on above:Performed By: #### [id number] #### [facility] ([facility]) [address] [place] [address]RDBKOXNPFUgv 18-31-6504Arecaollb [Mass/Vol]6.4 mg/dLHigh2.5-5.0 [facility] HospitalComment on above:Performed By: #### [id number] #### [facility] ([facility]) [address] [place] [address]KAQUV METABOLIC PANELon 63-50-1743Fgexv gap [Moles/Vol]13 mmol/L Normal7-20UnTogus VA Medical CenterComment on above:Performed By: #### [id number] #### [facility] ([facility]) [address] [place] [address]Pjpuetz [Mass/Vol]8.3 mg/dLLow8.6-10.3UnTogus VA Medical CenterComment on above:Performed By: #### [id number] #### [facility] ([facility]) [address] [place] [address]Ytnmpyep [Moles/Vol]102 mmol/TArdtjt52-714TssplaaulpTogus VA Medical CenterComment on above:Performed By: #### [id number] #### [facility] ([facility]) [address] [place] [address]GY8 [Moles/Vol]24 mmol/XGewnkc73-11ShgdtkbrcsTogus VA Medical CenterComment on above:Performed By: #### [id number] #### [facility] ([facility]) [address] [place] [address]Iqakoxusjg [Mass/Vol]2.10 mg/dLHigh0.70-1.30UnTogus VA Medical CenterComment on above:Performed By: #### [id number] #### [facility] ([facility]) [address] [place] [address]SWDADTABRT FILTRATION RATE ML/MIN/1.73 SQ M.NERRBOPIX22.0 mL/min/1.73m*2Low>60.0UnTogus VA Medical CenterComment on above:Result Comment: [facility]???s estimated glomerular filtration rate (eGFR) will no [...] potential consequences that do not disproportionately affect anyone group of individuals.Performed By: #### [id number] #### [facility] ([facility]) [address] [place], [place] [address]Chncuva [Mass/Vol]71 mg/aZLmgrww62-255IwavkqbtkpTogus VA Medical CenterComment on above:Performed By: #### [id number] #### [facility] ([facility]) [address] [place], [place] [address]Txmvujaia [Moles/Vol]4.7 mmol/LNormal3.5-5.1UnTogus VA Medical CenterComment on above:Performed By: #### [id number] #### [facility] ([facility]) [address] [place], [place] [address]Ddhboz [Moles/Vol]134 mmol/PSab461-603NznwwjlyqoTogus VA Medical CenterComment on above:Performed By: #### [id number] #### [facility] ([facility]) [address] [place] [address]Ilmi nitrogen [Mass/Vol]61 mg/dLHigh7-25UnTogus VA Medical CenterComment on above:Performed By: #### [id number] #### [facility] ([facility]) [address] [place], [place] [address]JPKP NITROGEN/CREATININE (MASS RATIO) IN SER/PLAS29.0Normal [facility] HospitalComment on above:Performed By: #### [id number] #### [facility] ([facility]) [address] [place], [place] [address]PNWfs 50-44-7633Acmtxdrwplx distribution width (RBC) [Ratio]17.2 %High11.5-15.0UnTogus VA Medical CenterComment on above:Performed By: #### [id number] #### [facility] ([facility]) [address] [place], [place] [address]LNCGOOSZLRW MEAN CORPUSCULAR HEMOGLOBIN CONCENTRATION (G/DL) BY DGPEOTBMM06.9 g/dLLow32.0-35.0UnTogus VA Medical CenterComment on above:Performed By: #### [id number] #### [facility] ([facility]) [address] [place] [address]Sovpecnmma (Bld) [Volume fraction]29.5 %Low39.0-55.0UnTogus VA Medical CenterComment on above:Performed By: #### [id number] #### [facility] ([facility]) [address] [place] [address]Chcjbebfmz (Bld) [Mass/Vol]9.4 g/dLLow13.0-17.0UnTogus VA Medical CenterComment on above:Performed By: #### [id number] #### [facility] ([facility]) [address] [place] [address]NCS (RBC) [Entitic mass]28.7 qrAaurax46.0-33.0UnTogus VA Medical CenterComment on above:Performed By: #### [id number] #### [facility] ([facility]) [address] [place] [address]QWK (RBC) [Entitic vol]89.9 hEQuiiki76.0-98.0UnTogus VA Medical CenterComment on above:Performed By: #### [id number] #### [facility] ([facility]) [address] [place] [address]EBISDVCQB (10*3/UL) IN BLOOD AUTOMATED [id number] 10*3/uLHigh 150-400UnTogus VA Medical CenterComment on above:Performed By: #### [id number] #### [facility] ([facility]) [address] [place] [address]HQR (Bld) [#/Vol]3.28 10*6/uLLow4.20-5.70UnTogus VA Medical CenterComment on above:Performed By: #### [id number] #### [facility] ([facility]) [address] [place] [address]FFY (Bld) [#/Vol]10.10 10*3/uLNormal4.00-10.60UnTogus VA Medical CenterComment on above:Performed By: #### [id number] #### [facility] ([facility]) [address] [address]ULBORNJWQek 32-81-3089Lafrhinln [Mass/Vol]2.2 mg/dLNormal1.9-2.7 [facility] HospitalComment on above:Performed By: #### [id number] #### [facility] ([facility]) [address] [place] [address]IQGACQQMIIai 89-97-0304Jzruyldlt [Mass/Vol]7.5 mg/dLHigh2.5-5.0 [facility] HospitalComment on above:Performed By: #### [id number] #### [facility] ([facility]) [address] [place] [address]WPHLG METABOLIC PANELon 70-79-7[address]Adomk gap [Moles/Vol]16 mmol/L Normal7-20UnTogus VA Medical CenterComment on above:Performed By: #### [id number] #### [facility] ([facility]) [address] [place] [address]Xquyfmm [Mass/Vol]8.4 mg/dLLow8.6-10.3UnTogus VA Medical CenterComment on above:Performed By: #### [id number] #### [facility] ([facility]) [address] [place] [address]Tmwyswte [Moles/Vol]103 mmol/NQkmqvi79-508AphyexgdnzTogus VA Medical CenterComment on above:Performed By: #### [id number] #### [facility] ([facility]) [address] [place] [address]TQ2 [Moles/Vol]21 mmol/ORwqmzx15-31MymgqpkixkTogus VA Medical CenterComment on above:Performed By: #### [id number] #### [facility] ([facility]) [address] [place] [address]Irlejyqbwb [Mass/Vol]1.98 mg/dLHigh0.70-1.30UnTogus VA Medical CenterComment on above:Performed By: #### [id number] #### [facility] ([facility]) [address] [place], [place] [address]OBAWVMMJJH FILTRATION RATE ML/MIN/1.73 SQ M.FSDJAVEUR86.4 mL/min/1.73m*2Low>60.0UnTogus VA Medical CenterComment on above:Result Comment: [facility]???s estimated glomerular filtration rate (eGFR) will no [...] potential consequences that do not disproportionately affect anyone group of individuals.Performed By: #### [id number] #### [facility] ([facility]) [address], [place] [address]Lrjyamp [Mass/Vol]74 mg/wASrdwaz74-002GrfrezfczqTogus VA Medical CenterComment on above:Performed By: #### [id number] #### [facility] ([facility]) [address] [place], [place] [address]Najpacztq [Moles/Vol]4.8 mmol/LNormal3.5-5.1UnTogus VA Medical CenterComment on above:Performed By: #### [id number] #### [facility] ([facility]) [address] [facility] [place] [address]Vtygko [Moles/Vol]135 mmol/VPkq319-755SaibkxriyrTogus VA Medical CenterComment on above:Performed By: #### [id number] #### [facility] ([facility]) [address] [place], [place] [address]Nhcw nitrogen [Mass/Vol]67 mg/dLHigh7-25UnTogus VA Medical CenterComment on above:Performed By: #### [id number] #### [facility] ([facility]) [address], [place] [address]TGFN NITROGEN/CREATININE (MASS RATIO) IN SER/PLAS33.8Normal [facility] HospitalComment on above:Performed By: #### [id number] #### [facility] ([facility]) [address], [place] [address]NZS WITH AUTO DIFFERENTIALon [id number] (Bld) [#/Vol] 0.22 10*3/uLHigh0.00-0.20UnTogus VA Medical CenterComment on above: Performed By: #### [id number] #### [facility] ([facility]) [address], [place] [address]Zbkfxtjcl/100 WBC (Bld)2.0 %High0.0-1.0UnTogus VA Medical CenterComment on above:Performed By: #### [id number] #### [facility] ([facility]) [address], [place] [address]Zqhstilxemw (Bld) [#/Vol]0.53 10*3/uLHigh0.00-0.50UnTogus VA Medical CenterComment on above:Performed By: #### [id number] #### [facility] ([facility]) [address], [place] [address]Kctdciogimv/100 WBC (Bld)4.7 %Normal0.0-6.0UnTogus VA Medical CenterComment on above:Performed By: #### [id number] #### [facility] ([facility]) [address], [place] [address]Klhadihwzsx distribution width (RBC) [Ratio]17.1 %High11.5-15.0 [facility] HospitalComment on above:Performed By: #### [id number] #### [facility] ([facility]) [address], [place] [address]ICWOIRDVOUA MEAN CORPUSCULAR HEMOGLOBIN CONCENTRATION (G/DL) BY FMIFSSOBG86.6 g/nPCmrlrw11.0-35.0UnTogus VA Medical CenterComment on above:Performed By: #### [id number] #### [facility] [address] [place] [place] [address]Qhqzhumdlg (Bld) [Volume fraction]27.0 %Low39.0-55.0UnTogus VA Medical CenterComment on above:Performed By: #### [id number] #### [facility] ([facility]) [address] [facility] [place] [address]Axeszymlad (Bld) [Mass/Vol]8.8 g/dLLow13.0-17.0UnTogus VA Medical CenterComment on above:Performed By: #### [id number] #### [facility] ([facility]) [address] [facility] [place], [place] [address]Safqonym granulocytes (Bld) [#/Vol]0.04 10*3/uLNormal0.00-0.20 [facility] HospitalComment on above:Performed By: #### [id number] #### [facility] ([facility]) [address], [place] [address]Pddyxqrw granulocytes/100 WBC (Bld)0.4 %Normal0.0-1.0UnTogus VA Medical CenterComment on above:Performed By: #### [id number] #### [facility] ([facility]) [address] [facility] [place], [place] [address]Zmhplgnyeea (Bld) [#/Vol]3.56 10*3/uLNormal1.20-4.00UnTogus VA Medical CenterComment on above:Performed By: #### [id number] #### [place] [facility] ([facility]) [address] [place], [place] [address]Wstbxqgghst/100 WBC (Bld)31.8 %Qezedv63.0-45.0UnTogus VA Medical CenterComment on above:Performed By: #### [id number] #### [facility] ([facility]) [address] [facility] [place], [place] [address]UNH (RBC) [Entitic mass]29.3 gmVyswkx59.0-33.0UnTogus VA Medical CenterComment on above:Performed By: #### [id number] #### [facility] ([facility]) [address] [place] [address]AOQ (RBC) [Entitic vol]90.0 oFBgyefz55.0-98.0UnTogus VA Medical CenterComment on above:Performed By: #### [id number] #### [facility] ([facility]) [address] [place] [address]Chbccngrf (Bld) [#/Vol]1.40 10*3/uLHigh0.10-1.00UnTogus VA Medical CenterComment on above:Performed By: #### [id number] #### [facility] ([facility]) [address] [place] [address]Hnkbbyzzu/100 WBC (Bld)12.5 %High5.0-12.0UnTogus VA Medical CenterComment on above:Performed By: #### [id number] #### [facility] ([facility]) [address] [place] [place] [address]Sylxrswedgc (Bld) [#/Vol]5.43 10*3/uLNormal1.60-7.60UnTogus VA Medical CenterComment on above:Performed By: #### [id number] #### [facility] ([facility]) [address] [place] [place] [address]Abvmzqubaww/100 WBC (Bld)48.6 %Ketrmc23.0-72.0UnTogus VA Medical CenterComment on above:Performed By: #### [id number] #### [facility] ([facility]) [address] [place] [place] [address]AFSF (PER 100 WBCS) BY AUTOMATED COUNT0.0 %Jmaoud8PgxxiyumgeTogus VA Medical CenterComment on above:Performed By: #### [id number] #### [facility] ([facility]) [address] [place] [address]TZBPTFAEH (10*3/UL) IN BLOOD AUTOMATED [id number] 10*3/uLHigh 150-400UnTogus VA Medical CenterComment on above:Performed By: #### [id number] #### [facility] ([facility]) [address] [address]MDI (Bld) [#/Vol]3.00 10*6/uLLow4.20-5.70UnTogus VA Medical CenterComment on above:Performed By: #### [id number] #### [facility] ([facility]) [address] [address]YTL (Bld) [#/Vol]11.18 10*3/uLHigh4.00-10.60UnTogus VA Medical CenterComment on above:Performed By: #### [id number] #### [facility] ([facility]) [address] [address]OWNCAOPYAao 11-26-9345Ndpymaxie [Mass/Vol]2.2 mg/dLNormal1.9-2.7 [facility] HospitalComment on above:Performed By: #### [id number] #### [facility] ([facility]) [address] [place] [address]DFHPABNLQOam 66-73-6522Iosptrhyk [Mass/Vol]6.7 mg/dLHigh2.5-5.0 [facility] HospitalComment on above:Performed By: #### [id number] #### [facility] ([facility]) [address] [place] [address]REQXA METABOLIC PANELon 63-44-6964Tjzzu gap [Moles/Vol]13 mmol/L Normal7-20UnTogus VA Medical CenterComment on above:Performed By: #### [id number] #### [facility] ([facility]) [address] [place] [address]Szdypvt [Mass/Vol]8.5 mg/dLLow8.6-10.3UnTogus VA Medical CenterComment on above:Performed By: #### [id number] #### [facility] ([facility]) [address] [place] [address]Ddggalue [Moles/Vol]102 mmol/BEtjdsm79-845AklyecyotxTogus VA Medical CenterComment on above:Performed By: #### [id number] #### [facility] ([facility]) [address] [place] [address]CU0 [Moles/Vol]23 mmol/PPiuwvw40-99VkkcsyqefjTogus VA Medical CenterComment on above:Performed By: #### [id number] #### [facility] ([facility]) [address] [place] [address]Jqtposzaat [Mass/Vol]1.44 mg/dLHigh0.70-1.30UnTogus VA Medical CenterComment on above:Performed By: #### [id number] #### [facility] ([facility]) [address] [place] [address]YBJKXIPGHX FILTRATION RATE ML/MIN/1.73 SQ M.IUVVVRTZA36.9 mL/min/1.73m*2Low>60.0UnTogus VA Medical CenterComment on above:Result Comment: [facility]???s estimated glomerular filtration rate (eGFR) will no [...] potential consequences that do not disproportionately affect anyone group of individuals.Performed By: #### [id number] #### [facility] ([facility]) [address] [place] [address]Mzlbjwi [Mass/Vol]61 mg/eONnf80-991WvtozqupdfTogus VA Medical CenterComment on above:Performed By: #### [id number] #### [facility] ([facility]) [address] [place] [address]Venohohcs [Moles/Vol]4.0 mmol/LNormal3.5-5.1UnTogus VA Medical CenterComment on above:Performed By: #### [id number] #### [facility] ([facility]) [address] [place], [place] [address]Cpcdrk [Moles/Vol]134 mmol/VZkg458-886JiwsnbwcotTogus VA Medical CenterComment on above:Performed By: #### [id number] #### [facility] ([facility]) [address] [place], [place] [address]Wqjo nitrogen [Mass/Vol]76 mg/dLHigh7-25UnTogus VA Medical CenterComment on above:Performed By: #### [id number] #### [facility] ([facility]) [address] [place], [place] [address]UEVP NITROGEN/CREATININE (MASS RATIO) IN SER/PLAS52.8Normal [facility] HospitalComment on above:Performed By: #### [id number] #### [facility] ([facility]) [address] [place], [place] [address]KJEfm 64-29-9138Okrovjbtaiq distribution width (RBC) [Ratio]15.7 %High11.5-15.0UnTogus VA Medical CenterComment on above:Performed By: #### [id number] #### [facility] ([facility]) [address] [place], [place] [address]BZIDDPNNGXP MEAN CORPUSCULAR HEMOGLOBIN CONCENTRATION (G/DL) BY BLRFTIGYD42.0 g/qGQqbaqg30.0-35.0UnTogus VA Medical CenterComment on above:Performed By: #### [id number] #### [facility] ([facility]) [address] [place], [place] [address]Dzatzywwjq (Bld) [Volume fraction]30.3 %Low39.0-55.0UnTogus VA Medical CenterComment on above:Performed By: #### [id number] #### [facility] ([facility]) [address] [place], [place] [address]Pryulafihh (Bld) [Mass/Vol]10.0 g/dLLow13.0-17.0UnTogus VA Medical CenterComment on above:Performed By: #### [id number] #### [facility] ([facility]) [address] [place] [address]TXH (RBC) [Entitic mass]29.2 ulKlvwvm42.0-33.0UnTogus VA Medical CenterComment on above:Performed By: #### [id number] #### [facility] ([facility]) [address] [place] [address]GNS (RBC) [Entitic vol]88.6 mKZrwchf20.0-98.0UnTogus VA Medical CenterComment on above:Performed By: #### [id number] #### [facility] ([facility]) [address] [place] [address]OTFRNVPJG (10*3/UL) IN BLOOD AUTOMATED [id number] 10*3/uLHigh 150-400UnTogus VA Medical CenterComment on above:Performed By: #### [id number] #### [facility] ([facility]) [address] [place] [address]FHB (Bld) [#/Vol]3.42 10*6/uLLow4.20-5.70UnTogus VA Medical CenterComment on above:Performed By: #### [id number] #### [facility] ([facility]) [address] [place] [address]TOR (Bld) [#/Vol]12.24 10*3/uLHigh4.00-10.60UnTogus VA Medical CenterComment on above:Performed By: #### [id number] #### [facility] ([facility]) [address] [place] [place] [address]XDYLWSWJWjo 27-38-8089Xclwowaox [Mass/Vol]2.2 mg/dLNormal1.9-2.7 [facility] HospitalComment on above:Performed By: #### [id number] #### [facility] ([facility]) [address] [place] [address]ABSCDTMRBQbz 52-86-7714Rwkuwoeyx [Mass/Vol]6.4 mg/dLHigh2.5-5.0 [facility] HospitalComment on above:Performed By: #### [id number] #### [facility] ([facility]) [address] [place] [address]WKUQW METABOLIC PANELon 11-57-9778Qjvqn gap [Moles/Vol]11 mmol/L Normal7-20UnTogus VA Medical CenterComment on above:Performed By: #### [id number] #### [facility] ([facility]) [address] [place] [address]Dhreppl [Mass/Vol]8.1 mg/dLLow8.6-10.3UnTogus VA Medical CenterComment on above:Performed By: #### [id number] #### [facility] ([facility]) [address] [place] [address]Umdwacif [Moles/Vol]101 mmol/LZtsdxn30-692PdplyuwoinTogus VA Medical CenterComment on above:Performed By: #### [id number] #### [facility] ([facility]) [address] [place] [address]OT9 [Moles/Vol]26 mmol/XLxpebk37-85CsmxanqdbwTogus VA Medical CenterComment on above:Performed By: #### [id number] #### [facility] ([facility]) [address] [place] [address]Guwpyloppm [Mass/Vol]1.22 mg/dLNormal0.70-1.30UnTogus VA Medical CenterComment on above:Performed By: #### [id number] #### [facility] ([facility]) [address] [place] [address]IJRKDPXBHK FILTRATION RATE ML/MIN/1.73 SQ M.SLRKRFYKP39.4 mL/min/1.73m*2Normal>60.0UnTogus VA Medical CenterComment on above: Result Comment: [facility]???s estimated glomerular filtration rate (eGFR) will no [...] potential consequences that do not disproportionately affect anyone group of individuals.Performed By: #### [id number] #### [facility] ([facility]) [address] [place], [place] [address]Rnehbnh [Mass/Vol]56 mg/uOTzz87-168FwvzbkacjtTogus VA Medical CenterComment on above:Performed By: #### [id number] #### [facility] ([facility]) [address] [place], [place] [address]Qnftyfshh [Moles/Vol]3.6 mmol/LNormal3.5-5.1UnTogus VA Medical CenterComment on above:Performed By: #### [id number] #### [facility] ([facility]) [address] [place], [place] [address]Fmsmez [Moles/Vol]134 mmol/JLob228-407DaionmhfjxTogus VA Medical CenterComment on above:Performed By: #### [id number] #### [facility] ([facility]) [address] [place], [place] [address]Bznr nitrogen [Mass/Vol]83 mg/dLHigh7-25UnTogus VA Medical CenterComment on above:Performed By: #### [id number] #### [facility] ([facility]) [address] [place], [place] [address]QBIT NITROGEN/CREATININE (MASS RATIO) IN SER/PLAS68.0Normal [facility] HospitalComment on above:Performed By: #### [id number] #### [facility] ([facility]) [address] [place], [place] [address]LQFae 89-82-6375Aekkzelwddj distribution width (RBC) [Ratio]15.9 %High11.5-15.0UnTogus VA Medical CenterComment on above:Performed By: #### [id number] #### [facility] ([facility]) [address] [place], [place] [address]NKDCMXXTPIH MEAN CORPUSCULAR HEMOGLOBIN CONCENTRATION (G/DL) BY WNVVNENQK63.2 g/eLVkcbkq30.0-35.0UnTogus VA Medical CenterComment on above:Performed By: #### [id number] #### [facility] ([facility]) [address] [place] [address]Eqgtvsayeh (Bld) [Volume fraction]26.9 %Low39.0-55.0UnTogus VA Medical CenterComment on above:Performed By: #### [id number] #### [facility] ([facility]) [address] [place] [address]Xpkhqukgsg (Bld) [Mass/Vol]9.2 g/dLLow13.0-17.0UnTogus VA Medical CenterComment on above:Performed By: #### [id number] #### [facility] ([facility]) [address] [place] [address]UZE (RBC) [Entitic mass]29.8 xgLdikou09.0-33.0UnTogus VA Medical CenterComment on above:Performed By: #### [id number] #### [facility] ([facility]) [address] [place] [place] [address]VOL (RBC) [Entitic vol]87.1 yHCpxvty41.0-98.0UnTogus VA Medical CenterComment on above:Performed By: #### [id number] #### [facility] ([facility]) [address] [place] [address]JYDHLRSKL (10*3/UL) IN BLOOD AUTOMATED [id number] 10*3/uLHigh 150-400UnTogus VA Medical CenterComment on above:Performed By: #### [id number] #### [facility] ([facility]) [address] [place] [address]LFS (Bld) [#/Vol]3.09 10*6/uLLow4.20-5.70UnTogus VA Medical CenterComment on above:Performed By: #### [id number] #### [facility] [address] [place] [address]DDA (Bld) [#/Vol]12.21 10*3/uLHigh4.00-10.60UnTogus VA Medical CenterComment on above:Performed By: #### [id number] #### [facility] ([facility]) [address] [place] [address]FAKEDHKXWum 54-58-3223Wqpzsvwbl [Mass/Vol]2.4 mg/dLNormal1.9-2.7 [facility] HospitalComment on above:Performed By: #### [id number] #### [facility] ([facility]) [address] [place] [address]SKZHUZTEWOkg 14-68-76[address]Famvyxhjh [Mass/Vol]5.5 mg/dLHigh2.5-5.0 [facility] HospitalComment on above:Performed By: #### [id number] #### [facility] ([facility]) [address] [place], [place] [address]GZH WITH AUTO DIFFERENTIALon 90-33-4645Lsjlastjk (Bld) [#/Vol] 0.11 10*3/uLNormal0.00-0.20UnTogus VA Medical CenterComment on above: Performed By: #### [id number] #### [facility] ([facility]) [address] [place], [place] [address]Enscxrlpq/100 WBC (Bld)0.8 %Normal0.0-1.0UnTogus VA Medical CenterComment on above:Performed By: #### [id number] #### [facility] ([facility]) [address] [place], [place] [address]Qxzinthawuf (Bld) [#/Vol]0.41 10*3/uLNormal0.00-0.50UnTogus VA Medical CenterComment on above:Performed By: #### [id number] #### [facility] ([facility]) [address] [place], [place] [address]Sgilptobwae/100 WBC (Bld)3.1 %Normal0.0-6.0UnTogus VA Medical CenterComment on above:Performed By: #### [id number] #### [facility] ([facility]) [address] [place] [address]Enkbadqevqa distribution width (RBC) [Ratio]15.6 %High11.5-15.0 [facility] HospitalComment on above:Performed By: #### [id number] #### [facility] ([facility]) [address] [place] [address]TIRIGHSTYHZ MEAN CORPUSCULAR HEMOGLOBIN CONCENTRATION (G/DL) BY DGWGFIIHY32.4 g/yIQhqoej34.0-35.0UnTogus VA Medical CenterComment on above:Performed By: #### [id number] #### [facility] ([facility]) [address] [place] [place] [address]Vwtwlplabh (Bld) [Volume fraction]27.3 %Low39.0-55.0UnTogus VA Medical CenterComment on above:Performed By: #### [id number] #### [facility] ([facility]) [address] [place] [place] [address]Dxyeqadnfv (Bld) [Mass/Vol]9.4 g/dLLow13.0-17.0UnTogus VA Medical CenterComment on above:Performed By: #### [id number] #### [facility] ([facility]) [address] [place] [place] [address]Kutwmryq granulocytes (Bld) [#/Vol]0.06 10*3/uLNormal0.00-0.20 [facility] HospitalComment on above:Performed By: #### [id number] #### [facility] ([facility]) [address] [place] [place] [address]Hqlfievb granulocytes/100 WBC (Bld)0.5 %Normal0.0-1.0UnTogus VA Medical CenterComment on above:Performed By: #### [id number] #### [facility] ([facility]) [address] [place] [place] [address]Otkcnbhgtcf (Bld) [#/Vol]2.09 10*3/uLNormal1.20-4.00UnTogus VA Medical CenterComment on above:Performed By: #### [id number] #### [facility] ([facility]) [address] [place] [address]Sqfulwkkrvf/100 WBC (Bld)15.9 %Low20.0-45.0UnTogus VA Medical CenterComment on above:Performed By: #### [id number] #### [facility] ([facility]) [address] [place] [address]VCM (RBC) [Entitic mass]29.7 oqZfugcf73.0-33.0UnTogus VA Medical CenterComment on above:Performed By: #### [id number] #### [facility] ([facility]) [address] [facility] [address] [place], [place] [address]RGL (RBC) [Entitic vol]86.1 gJEjclju70.0-98.0UnTogus VA Medical CenterComment on above:Performed By: #### [id number] #### [facility] ([facility]) [address] [place] [address]Kpyuhmtsx (Bld) [#/Vol]1.24 10*3/uLHigh0.10-1.00UnTogus VA Medical CenterComment on above:Performed By: #### [id number] #### [facility] ([facility]) [address] [place] [address]Zgwovoiwv/100 WBC (Bld)9.5 %Normal5.0-12.0UnTogus VA Medical CenterComment on above:Performed By: #### [id number] #### [facility] ([facility]) [address] [place], [place] [address]Rqinrhviger (Bld) [#/Vol]9.20 10*3/uLHigh1.60-7.60UnTogus VA Medical CenterComment on above:Performed By: #### [id number] #### [facility] ([facility]) [address] [place] [address]Usdhtuupcfc/100 WBC (Bld)70.2 %Atioxu92.0-72.0UnTogus VA Medical CenterComment on above:Performed By: #### [id number] #### [facility] ([facility]) [address] [place] [address]UIUL (PER 100 WBCS) BY AUTOMATED COUNT0.0 %Zthzua0AiocwrxrbkTogus VA Medical CenterComment on above:Performed By: #### [id number] #### [facility] ([facility]) [address] [place] [place] [address]QMNEIOSTY (10*3/UL) IN BLOOD AUTOMATED [id number] 10*3/uLHigh 150-400UnTogus VA Medical CenterComment on above:Performed By: #### [id number] #### [facility] ([facility]) [address] [place] [place] [address]EYE (Bld) [#/Vol]3.17 10*6/uLLow4.20-5.70UnTogus VA Medical CenterComment on above:Performed By: #### [id number] #### [facility] ([facility]) [address] [place] [address]TUG (Bld) [#/Vol]13.11 10*3/uLHigh4.00-10.60UnTogus VA Medical CenterComment on above:Performed By: #### [id number] #### [facility] ([facility]) [address] [place] [address]GRVTDZIPXHFWG TESTon 44-65-5348COREWGTURJUDM IN BLOOD0.14 ng/mL High0.00-0.10UnTogus VA Medical CenterComment on above:Result Comment: Suspected Lower Respiratory Tract Infection: 0.1-0.25 [...] 6-12 hours if clinically indicated and initial PCT<0.5ng/mLPerformed By: #### [id number] #### [facility] ([facility]) [address] [place], [place] [address]Wophgfazfel [id number] Chelsea Diego JR 1950 M Date Provider Department [place] 09/09/[address] [facility] Comprehensiv No family history on fileNormalUniversOur Lady of Mercy Hospital - AndersonBASIC METABOLIC PANELon 13-21-4774Qewre gap [Moles/Vol]13 mmol/LNormal7-20UnTogus VA Medical CenterComment on above:Performed By: #### [id number] #### [facility] ([facility]) [address] [place], [place] [address]Dyqlayb [Mass/Vol]8.2 mg/dLLow8.6-10.3UnTogus VA Medical CenterComment on above:Performed By: #### [id number] #### [facility] ([facility]) [address] [place], [place] [address]Vzkpkdam [Moles/Vol]98 mmol/CSzfxuq93-015HollbqmeeqTogus VA Medical CenterComment on above:Performed By: #### [id number] #### [facility] ([facility]) [address] [place], [place] [address]MJ9 [Moles/Vol]25 mmol/LKfvpev61-95PpawzniuidTogus VA Medical CenterComment on above:Performed By: #### [id number] #### [facility] ([facility]) [address] [place] [address]Yavnlcpuiq [Mass/Vol]2.14 mg/dLHigh0.70-1.30UnTogus VA Medical CenterComment on above:Performed By: #### [id number] #### [facility] ([facility]) [address] [place] [place], [place] [address]RHMIAPYFDV FILTRATION RATE ML/MIN/1.73 SQ M.OXYSMAVTQ19.3 mL/min/1.73m*2Low>60.0UnTogus VA Medical CenterComment on above:Result Comment: [facility]???s estimated glomerular filtration rate (eGFR) will no [...] potential consequences that do not disproportionately affect anyone group of individuals.Performed By: #### [id number] #### [facility] ([facility]) [address] [place], [place] [address]Hwbbbxl [Mass/Vol]92 mg/zRVhapst33-640HqbsxocpchTogus VA Medical CenterComment on above:Performed By: #### [id number] #### [facility] ([facility]) [address] [place] [address]Ebmluutdg [Moles/Vol]3.3 mmol/LLow3.5-5.1UnTogus VA Medical CenterComment on above:Performed By: #### [id number] #### [facility] ([facility]) [address] [place] [address]Fdnprm [Moles/Vol]133 mmol/PNit822-261DsbotjgfjgTogus VA Medical CenterComment on above:Performed By: #### [id number] #### [facility] ([facility]) [address] [place], [place] [address]Vvny nitrogen [Mass/Vol]89 mg/dLHigh7-25UnTogus VA Medical CenterComment on above:Performed By: #### [id number] #### [facility] ([facility]) [address] [place], [place] [address]FWEP NITROGEN/CREATININE (MASS RATIO) IN SER/PLAS41.6Normal [facility] HospitalComment on above:Performed By: #### [id number] #### [facility] ([facility]) [address] [place], [place] [address]MPHpd 71-44-8225Wwjqegimqzp distribution width (RBC) [Ratio]15.7 %High11.5-15.0UnTogus VA Medical CenterComment on above:Performed By: #### [id number] #### [facility] ([facility]) [address] [place], [place] [address]ANAMHGDXHXI MEAN CORPUSCULAR HEMOGLOBIN CONCENTRATION (G/DL) BY ZWECOCKUE93.0 g/wQMbrgus78.0-35.0UnTogus VA Medical CenterComment on above:Performed By: #### [id number] #### [facility] ([facility]) [address] [place], [place] [address]Rtxeaklvbe (Bld) [Volume fraction]29.1 %Low39.0-55.0UnTogus VA Medical CenterComment on above:Performed By: #### [id number] #### [facility] ([facility]) [address] [place], [place] [address]Gincgmdjyf (Bld) [Mass/Vol]9.9 g/dLLow13.0-17.0UnTogus VA Medical CenterComment on above:Performed By: #### [id number] #### [facility] ([facility]) [address] [place], [place] [address]TMI (RBC) [Entitic mass]29.5 moKybsmy90.0-33.0UnTogus VA Medical CenterComment on above:Performed By: #### [id number] #### [facility] ([facility]) [address] [place] [address]TNW (RBC) [Entitic vol]86.6 kNUcqhxc39.0-98.0UnTogus VA Medical CenterComment on above:Performed By: #### [id number] #### [facility] ([facility]) [address] [place] [address]EVMGPBSPZ (10*3/UL) IN BLOOD AUTOMATED [id number] 10*3/uLHigh 150-400UnTogus VA Medical CenterComment on above:Performed By: #### [id number] #### [facility] ([facility]) [address] [place] [address]KJR (Bld) [#/Vol]3.36 10*6/uLLow4.20-5.70UnTogus VA Medical CenterComment on above:Performed By: #### [id number] #### [facility] ([facility]) [address] [place] [address]GKT (Bld) [#/Vol]13.88 10*3/uLHigh4.00-10.60UnTogus VA Medical CenterComment on above:Performed By: #### [id number] #### [facility] ([facility]) [address] [place] [address]KXRTKYFIPty 15-61-0347Yhzsxkext [Mass/Vol]2.4 mg/dLNormal1.9-2.7 [facility] HospitalComment on above:Performed By: #### [id number] #### [facility] ([facility]) [address] [place] [address]ZXQBYLBUNZof 55-60-9126Ioxrrgcbo [Mass/Vol]6.4 mg/dLHigh2.5-5.0 [facility] HospitalComment on above:Performed By: #### [id number] #### [facility] ([facility]) [address] [place] [address]PSLJY METABOLIC PANELon 33-64-2210Ygzhq gap [Moles/Vol]12 mmol/L Normal7-20UnTogus VA Medical CenterComment on above:Performed By: #### [id number] #### [facility] ([facility]) [address] [place] [address]Icmmooj [Mass/Vol]8.1 mg/dLLow8.6-10.3UnTogus VA Medical CenterComment on above:Performed By: #### [id number] #### [facility] ([facility]) [address] [place] [address]Crjygstt [Moles/Vol]99 mmol/GFgqgnl59-528WtyjospudqTogus VA Medical CenterComment on above:Performed By: #### [id number] #### [facility] ([facility]) [address] [place] [address]PY3 [Moles/Vol]26 mmol/QIxjoxv12-35QmxsjmtbhlTogus VA Medical CenterComment on above:Performed By: #### [id number] #### [facility] ([facility]) [address] [place] [address]Fuusghawta [Mass/Vol]3.13 mg/dLHigh0.70-1.30UnTogus VA Medical CenterComment on above:Performed By: #### [id number] #### [facility] ([facility]) [address] [place] [address]NMUYFVENLJ FILTRATION RATE ML/MIN/1.73 SQ M.SSVQDGFLR87.5 mL/min/1.73m*2Low>60.0UnTogus VA Medical CenterComment on above:Result Comment: The [facility]???s estimated glomerular filtration rate (eGFR) will no [...] potential consequences that do not disproportionately affect anyone group of individuals.Performed By: #### [id number] #### [facility] ([facility]) [address] [place], [place] [address]Gehpsal [Mass/Vol]138 mg/iBFmcb55-332EbhtmhxhseTogus VA Medical CenterComment on above:Performed By: #### [id number] #### [facility] ([facility]) [address] [place], [place] [address]Swmnokopn [Moles/Vol]3.1 mmol/LLow3.5-5.1UnTogus VA Medical CenterComment on above:Performed By: #### [id number] #### [facility] ([facility]) [address] [place], [place] [address]Doyktd [Moles/Vol]134 mmol/IGwp355-967SlbshiypqkTogus VA Medical CenterComment on above:Performed By: #### [id number] #### [facility] ([facility]) [address] [place], [place] [address]Pgnr nitrogen [Mass/Vol]64 mg/dLHigh7-25UnTogus VA Medical CenterComment on above:Performed By: #### [id number] #### [facility] ([facility]) [address] [place], [place] [address]SGIV NITROGEN/CREATININE (MASS RATIO) IN SER/PLAS20.4Normal [facility] HospitalComment on above:Performed By: #### [id number] #### [facility] ([facility]) [address] [place], [place] [address]WMPyv 92-25-0276Uivtmhtwhbi distribution width (RBC) [Ratio]15.9 %High11.5-15.0UnTogus VA Medical CenterComment on above:Performed By: #### [id number] #### [facility] ([facility]) [address] [place], [place] [address]MCYQSDGLJVC MEAN CORPUSCULAR HEMOGLOBIN CONCENTRATION (G/DL) BY VZIJJRXME47.8 g/vQXuqmdu68.0-35.0UnTogus VA Medical CenterComment on above:Performed By: #### [id number] #### [facility] ([facility]) [address] [place], [place] [address]Jrycklyfle (Bld) [Volume fraction]29.9 %Low39.0-55.0UnTogus VA Medical CenterComment on above:Performed By: #### [id number] #### [facility] ([facility]) [address] [place] [address]Lsdogfsdpk (Bld) [Mass/Vol]10.1 g/dLLow13.0-17.0UnTogus VA Medical CenterComment on above:Performed By: #### [id number] #### [facility] ([facility]) [address] [place] [address]HDH (RBC) [Entitic mass]29.6 faTxdhea26.0-33.0UnTogus VA Medical CenterComment on above:Performed By: #### [id number] #### [facility] ([facility]) [address] [place] [address]POK (RBC) [Entitic vol]87.7 lKDvepzr72.0-98.0UnTogus VA Medical CenterComment on above:Performed By: #### [id number] #### [facility] ([facility]) [address] [place] [address]YSTIETMPX (10*3/UL) IN BLOOD AUTOMATED [id number] 10*3/uLHigh 150-400UnTogus VA Medical CenterComment on above:Performed By: #### [id number] #### [facility] ([facility]) [address] [place] [address]WUB (Bld) [#/Vol]3.41 10*6/uLLow4.20-5.70UnTogus VA Medical CenterComment on above:Performed By: #### [id number] #### [facility] ([facility]) [address] [place] [address]IFI (Bld) [#/Vol]10.65 10*3/uLHigh4.00-10.60UnTogus VA Medical CenterComment on above:Performed By: #### [id number] #### [facility] ([facility]) [address] [place], [place] [address]ULSOTTUOVfg 31-76-6071Hzyubpcaj [Mass/Vol]2.4 mg/dLNormal1.9-2.7 [facility] HospitalComment on above:Performed By: #### [id number] #### [facility] ([facility]) [address] [place], [place] [address]DCQQQTOUTWpx 15-94-2401Paqmqiksa [Mass/Vol]5.7 mg/dLHigh2.5-5.0 [facility] HospitalComment on above:Performed By: #### [id number] #### [facility] ([facility]) [address] [place], [place] [address]Cajaawl Glucometer ([employer] [employer] [facility] [employer]) [Mass/Vol]Ordered By: Arnaldo Thomas on 97-79-3327Tpzktgl [Mass/Vol]99 mg/dLKettering Health MiamisburgComment on above:Random Glucose Reference Range is dependent on time and content of last meal. Glucose of more than 200 mg/dL in a nonstressed, ambulatory subject supports the diagnosis of Diabetes Mellitus.No Panel InformationOrdered By: Arnaldo Thomas on 98-42-1066Qguacnw Glucose CommentGlu2: cleaned [facility] HospitalGlu2: cleaned [facility] Albumin [Mass/volume] in Serum or Plasma by Bromocresol green (BCG) dye binding methoOrdered By: Sury Winkler on 27-35-7022Ngtaedd BCG dye [Mass/Vol]2.5 g/dL 3.5-5.7FRegency Hospital ToledoCalcium [Mass/volume] in Serum or Plasma Ordered By: Sury Winkler on 02-63-9627Jybjqqh [Mass/Vol]8.9 mg/dL8.6-10.3 [facility] MiamisburgCarbon dioxide, total [Moles/volume] in Serum or PlasmaOrdered By: Sury Winkler on 75-61-9395WA9 [Moles/Vol]30.9 mmol/L 21.0-31.0[facility] Health MiamisburgChloride [Moles/volume] in Serum or PlasmaOrdered By: Sury Winkler on 24-60-7615Nmldgghb [Moles/Vol]95 mmol/L98-107 [facility] MiamisburgCreatinine [Mass/volume] in Serum or Plasma Ordered By: Sury Winkler on 22-77-1868Blefftksma [Mass/Vol]3.00 mg/dL0.70-1.30 [facility] MiamisburgComment on above:Delta: 2.13 on 08/21/23 Creatinine [Mass/volume] in UrineOrdered By: Sury Winkler on 08-22-2023 Creatinine (U) [Mass/Vol]259.0 mg/dLKettering Health MiamisburgComment on above:No reference range establishedGlucose [Mass/volume] in Serum or Plasma Ordered By: Sury Winkler on 48-33-4134Umskzpf [Mass/Vol]161 mg/kH99-307KzmzfhdpjKettering Health MiamisburgComment on above:ADA recommended reference rangeRandom Glucose Reference Range is dependent on time and content of last meal. Glucose of more than 200 mg/dL in a nonstressed, ambulatory subject supports the diagnosisof Diabetes Mellitus.No Panel InformationOrdered By: Sury Winkler on 87-51-1821Pvkwwqqkn GFR (CKD-EPI)21.531 mL/MinKettering Health Miamisburg Pharmacy Creatinine Clearance (Chem24.07[facility]21.531 mL/MinKettering Health Miamisburg24.[address] [place] [address] Phosphate [Mass/volume] in Serum or PlasmaOrdered By: Sury Winkler on 08-22-2023 Phosphate [Mass/Vol]4.9 mg/dL2.5-4.5FRegency Hospital ToledoPotassium [Moles/volume] in Serum or PlasmaOrdered By: Sury Winkler 26-56-4876Pufwzapar [Moles/Vol]4.8 mmol/L3.5-5.1FSelect Medical Specialty Hospital - Cincinnati Northerum or plasma anion gap determinationOrdered By: Sury Winkler 72-93-2978Disew gap [Moles/Vol]11.9 mmol/L6.0-15.0Knox Community Hospitalodium [Moles/volume] in Serum or PlasmaOrdered By: Sury Winkler 48-62-8639Kliiws [Moles/Vol]133 mmol/K067-504DkliqinkuKnox Community Hospitalodium [Moles/volume] in UrineOrdered By: Sury Winkler on 14-09-0737Nwqecx (U) [Moles/Vol]33 mmol/LFRegency Hospital ToledoComment on above:No reference range establishedUrea nitrogen [Mass/volume] in Serum or PlasmaOrdered By: Sury Winkler on 47-09-6945Wfrw nitrogen [Mass/Vol]55 mg/dL7-25K[facility] Health MiamisburgAutomated erythrocytes count in urine sediment (number/area)Ordered By: Sury Winkler on 04-39-3536KRM Auto (Urine sed) [#/Area] 3-4 [HPF]0-4FRegency Hospital ToledoAutomated leukocytes count in urine sediment (number/area)Ordered By: Sury Winkler on 61-81-6322YHG Auto (Urine sed) [#/Area]50-100 [HPF]0-4FRegency Hospital ToledoAutomated urine hyaline casts count (number/volume)Ordered By: Sury Winkler on 43-17-8716Ohtytir casts Auto (U) [#/Vol]50-100 [LPF]0-1FRegency Hospital ToledoBacteria identified Cx Nom (U)Ordered By: Sury Winkler on 78-02-2931Ntomt culture routine Klebsiella pneumoniae (CRE)[facility] MiamisburgBasophils Auto (Bld) [#/Vol]Ordered By: Geo Thomas on 33-72-0144Lvwisbnkz (Bld) [#/Vol]0.1 10*3/uL0.0-0.2FRegency Hospital ToledoBasophils/100 WBC Auto (Bld) Ordered By: Geo Thomas on 41-25-4785Xetwntirr/100 WBC (Bld)0.9 %. [facility] MiamisburgBilirubin Test strip Ql (U)Ordered By: Sury Winkler on 88-52-6611Yxdogldqc Ql (U)3+NegativeKettering Health Miamisburg Casts typing in urine sediment by light microscopyOrdered By: Sury Winkler on 72-66-2673Hordw LM Nom (Urine sed)None seen [LPF]None SeenKettering Health MiamisburgCoarse granular casts count in urine sediment by microscopy low power field (number/aOrdered By: Sury Winkler on 36-08-9631Ybsgcj Granular Casts LM.LPF (Urine sed) [#/Area]1-2 [LPF]0-1FRegency Hospital ToledoColor Auto (U)Ordered By: Sury Winkler on 65-07-9742Kydjm (U)Dark yellowYellow [facility] MiamisburgEosinophils Auto (Bld) [#/Vol]Ordered By: Geo Thomas on 04-89-1341Msyskgtodce (Bld) [#/Vol]0.1 10*3/uL0.0-0.45 [facility] MiamisburgEosinophils/100 WBC Auto (Bld)Ordered By: Geo Thomas on 02-98-3178Voxklsnvutc/100 WBC (Bld)0.8 %.[facility] Health MiamisburgErythrocyte distribution width Auto (RBC) [Ratio]Ordered By: Geo Thomas on 81-29-5517Lgirprkipqr distribution width (RBC) [Ratio]17.3 %12.0-14.8K[facility] Health MiamisburgFerritin [Mass/volume] in Serum or PlasmaOrdered By: Mehul Garrett on 73-50-0905Lenmxeiq [Mass/Vol]938.1 ng/mL23.9-336.2FRegency Hospital ToledoHematocrit Auto (Bld) [Volume fraction]Ordered By: Geo Thomas on 79-11-1040Cncveyapto (Bld) [Volume fraction]28.3 %38.8-50.0[facility] Hemoglobin [Mass/volume] in BloodOrdered By: Geo Thomas on 08-21-2023 Hemoglobin (Bld) [Mass/Vol]9.4 g/dL13.0-17.0[facility] Iron [Mass/volume] in Serum or PlasmaOrdered By: Mehul Garrett on 86-27-8852Oysq [Mass/Vol]22 ug/uV44-796XojatejpmKettering Health MiamisburgIron binding capacity [Mass/volume] in Serum or PlasmaOrdered By: Mehul Garrett on 54-16-4612Bsus binding capacity [Mass/Vol]179 ug/uX289-387RlgrlunljKettering Health MiamisburgIron saturation [Mass Fraction] in Serum or PlasmaOrdered By: Mehul Grarett on 92-90-5157Dpks saturation [Mass fraction]12.3 %20-50 [facility] MiamisburgKetones Auto test strip (U) [Mass/Vol]Ordered By: Sury Winkler on 52-52-4935Bvieuaw (U) [Mass/Vol]TraceNegativeKettering Health MiamisburgLeukocytes [#/volume] corrected for nucleated erythrocytes in Blood by Automated counOrdered By: Geo Thomas on 54-84-0198JBG corrected for nucl RBC Auto (Bld) [#/Vol]15.3 10*3/uL4.1-10.5 [facility] MiamisburgLymphocytes Auto (Bld) [#/Vol]Ordered By: Geo Thomas on 37-33-0171Dfyrrkgokpv (Bld) [#/Vol]1.8 10*3/uL1.00-4.8 [facility] MiamisburgLymphocytes/100 WBC Auto (Bld)Ordered By: Geo Thomas on 84-42-3398Gkesavprqpy/100 WBC (Bld)11.5 %.[facility] Auto (RBC) [Entitic mass]Ordered By: Geo Thomas on 42-32-4116TXA (RBC) [Entitic mass]29.6 pg27.5-35.2FRegency Hospital ToledoMCHC Auto (RBC) [Mass/Vol]Ordered By: Geo Thomas on 31-13-8203MSUM (RBC) [Mass/Vol]33.2 g/dL32.5-35.6FRegency Hospital ToledoMCV Auto (RBC) [Entitic vol]Ordered By: Geo Thomas on 91-94-8238OOT (RBC) [Entitic vol]89.1 fL83.5-101K[facility] Health MiamisburgMonocytes Auto (Bld) [#/Vol]Ordered By: Geo Thomas on 08-21-2023 Monocytes (Bld) [#/Vol]See comment0.0-0.8[facility] Comment on above:Absolute monocytosis is commonly reactive in nature. However, if unexplained, recommend follow-up CBC in 3 months to evaluate for persistence. Monocytes/100 WBC Auto (Bld)Ordered By: Geo Thomas on 08-21-2023 Monocytes/100 WBC (Bld)16.8 %.[facility] Health MiamisburgNeutrophils Auto (Bld) [#/Vol]Ordered By: Geo Thomas on 61-22-7984Ewmvsnvbrzx (Bld) [#/Vol]10.7 10*3/uL1.8-7.7FRegency Hospital ToledoNeutrophils/100 WBC Auto (Bld)Ordered By: Geo Thomas on 62-23-1144Jfppzpjnagz/100 WBC (Bld)70.0 %.[facility] MiamisburgNitrite Test strip Ql (U)Ordered By: Sury Winkler on 99-81-7212Houwcke Ql (U)PositiveNegativeKettering Health MiamisburgNucleated erythrocytes [Presence] in Blood by Automated count Ordered By: Geo Thomas on 46-97-0341Aweyrfxou RBC Auto Ql (Bld)0.0 /100{WBC}0-0.5FRegency Hospital ToledoPlatelet mean volume Auto (Bld) [Entitic vol]Ordered By: Geo Thomas on 64-39-5370Ygfwmsta mean volume (Bld) [Entitic vol]7.6 fL6.6-10.1FRegency Hospital ToledoPlatelets Auto (Bld) [#/Vol]Ordered By: Geo Thomas on 42-28-0375Uksevvkps (Bld) [#/Vol]740 10*3/xT330-263NuvuyzpovKettering Health MiamisburgProtein Auto test strip (U) [Mass/Vol]Ordered By: Sury Winkler on 88-29-7720Jglvxqa (U) [Mass/Vol] 30 mg/dLNegativeKettering Health MiamisburgRBC Auto (Bld) [#/Vol]Ordered By: Geomushtaq Shirleyfranco on 57-32-5548QXO (Bld) [#/Vol]3.17 10*6/uL3.90-5.60 [facility] Community Hospitalpecific gravity Auto test strip (U) [Rel density]Ordered By: Sury Winkler on 21-65-5672Xzbuifnu gravity (U) [Rel density] 1.0261.001-1.030Kn[facility] Community Hospitalquamous epithelial cells detection in urine sediment by light microscopyOrdered By: Sury Winkler on 35-52-8695Smfytmettd cells.squamous LM Ql (Urine sed)None seen [HPF]0-2FRegency Hospital ToledoTransferrin [Mass/volume] in Serum or PlasmaOrdered By: Mehul Garrett on 93-98-4951Kydzzcyfqev [Mass/Vol]128 mg/lP970-203 [facility] MiamisburgUrine bacteria detection by automated method Ordered By: Sury Winkler on 01-84-6570Zepylrrj Auto Ql (U)4+None SeenKettering Health MiamisburgUrine clarity by refractometry automatedOrdered By: Sury Winkler on 43-15-4855Hlxcwlj Refractometry automated (U)TurbidCleHarrison Community HospitalUrine culture routineOrdered By: Sury Winkler on 31-71-8961Mrfqpctu identified Cx Nom (U)Klebsiella pneumoniae (CRE)[facility] MiamisburgUrine glucose measurement by automated test strip (mass/volume)Ordered By: Sury Winkler on 41-42-4599Donurdd Auto test strip (U) [Mass/Vol]Normal mg/dLNormalKettering Health MiamisburgUrine hemoglobin detection by automated test stripOrdered By: Sury Winkler on 08-21-2023 Hemoglobin Auto test strip Ql (U)2+NegativeKettering Health Miamisburg Urine leukocyte esterase detection by automated test stripOrdered By: Sury Winkler on 45-67-1246Twgywzbnc esterase Auto test strip Ql (U)3+NegativeKettering Health MiamisburgUrine sediment waxy cast count by microscopy (number/low power field)Ordered By: Sury Winkler on 47-43-1089Twat casts LM.LPF (Urine sed) [#/Area]1-2 [LPF]None SeenKettering Health MiamisburgUrobilinogen Auto test strip (U) [Mass/Vol]Ordered By: Sury Winkler on 02-38-7135Ffssieiqioxn (U) [Mass/Vol]Normal mg/dLNormalKettering Health MiamisburgWBC Auto (Bld) [#/Vol]Ordered By: Geo Marshbrigida on 94-23-0734JTI (Bld) [#/Vol]15.3 10*3/uL4.1-10.5FRegency Hospital ToledoYeast detection in urine sediment by light microscopyOrdered By: Sury Winkler on 52-53-6939Ahqpy LM Ql (Urine sed)None seen [HPF]None SeenKettering Health MiamisburgpH Auto test strip (U)Ordered By: Sury Winkler on 11-19-7699rY (U)5.0 [pH]5.0-9.0[facility]amisburgLaboratory - Chemistry and Chemistry - challengeOrdered By: Arnaldo Thomas on 03-78-5788IM2 [Moles/Vol]27.8 mmol/L23.0-27.0[facility] MiamisburgHCO3 (Bld) [Moles/Vol]26.8 mmol/L23.0-29.0[facility] MiamisburgNo Panel InformationOrdered By: Arnaldo Thomas on 27-53-4762Mkflmerp Blood Base Excess4.5 mmol/L-3.0-3.0[facility] MiamisburgArterial Blood Oxygen Content6.1 mmol/L6.6-9.7FRegency Hospital ToledoArterial Blood Oxygen Urmqhfyilt98.9 %95.0-100.0[facility] MiamisburgArterial Blood Partial Pressure CO231.8 mm[Hg]35.0-45.0[facility] MiamisburgArterial Blood Partial Pressure O2105.4 mm[Hg]80.0-100.0[facility] MiamisburgArterial Blood pH7.547.35-7.45[facility] MiamisburgBlood Gas Critical ValueSee commentKettering Health Miamisburg Comment on above:Critical Value called on: 08/19/2023 at 04:20Blood Gas PEEP5 qtE2ZFtqgeexyzKettering Health MiamisburgBlood Gas Sample SiteLeft [facility] Hospital - YoungstownBlood Gas Set Respiration Mobb26IkcwmbzgsKettering Health MiamisburgBlood Gas Tidal Vcpgzd134 [facility]ina HospitalBlood Gas Ventilator ModeAcKettering Health MiamisburgFiO230 %[facility]7.547.35-7.45[facility]31.8 mm[Hg] 35.0-45.0[facility]105.4 mm[Hg]80.0-100.0[facility]26.8 mmol/L23.0-29.0[facility]4.5 mmol/L-3.0-3.0[facility]97.9 %95.0-100.0[facility]6.1 mmol/L6.6-9.7FRegency Hospital Toledo27.8 mmol/L23.0-27.0[facility]30 %[facility]450 [facility]5 wxS4JPackggikdKettering Health MiamisburgLeft [facility] - YoungstownAcKettering Health Miamisburg14Knox Community Hospitalee commentKettering Health MiamisburgAnisocytosis LM Ql (Bld)Ordered By: Geo Thomas on 08-18-2023 Anisocytosis Ql (Bld)[facility] Rutan HospitalPlatelet adequacy [Presence] in Blood by Light microscopyOrdered By: Geo Thomas on 98-36-5359Jingvqgmq LM Ql (Bld)IncreasedNormSelect Medical Specialty Hospital - [facility] Platelet morphology finding [Identifier] in BloodOrdered By: Geo Thomas on 72-26-3167Cdouspjd morphology finding Nom (Bld)NormalNoDunlap Memorial HospitalPolychromasia [Presence] in Blood by Light microscopyOrdered By: Geo Thomas on 43-64-0827Emhmzspxaawkj LM Ql (Bld)SlightKettering Health MiamisburgRBC morphologyOrdered By: Geo Thomas on 32-36-5414GNC morphology finding Nom (Bld)N/AFRegency Hospital ToledoMicrocytes LM Ql (Bld)Ordered By: Geo Thomas on 09-18-0297Ykhzhggtrs Ql (Bld)ModerateKettering Health Miamisburg Poikilocytosis [Presence] in Blood by Light microscopyOrdered By: Geo Thomas on 39-08-8746Bhfmnbqtzbpqml LM Ql (Bld)Marymount HospitalBurr cells [Presence] in Blood by Light microscopyOrdered By: Geo Thomas on 35-60-5641Jcqc cells LM Ql (Bld)Marymount HospitalEosinophils/100 WBC Manual cnt (Bld)Ordered By: Geo Thomas on 66-21-7851Gdryyroehey/100 WBC (Bld)2 %1-3FRegency Hospital ToledoLymphocytes/100 WBC Manual cnt (Bld)Ordered By: Geo Thomas on 25-48-5700Ipvirsugrir/100 WBC (Bld)5 %18-42[facility] Monocytes/100 WBC Manual cnt (Bld)Ordered By: Geo Thomas on 08-15-2023 Monocytes/100 WBC (Bld)9 %2-11[facility] MiamisburgMyelocytes/100 WBC Manual cnt (Bld)Ordered By: Geo Thomas on 85-28-9669Ccmumkvtyn/100 WBC (Bld)1 %0-0Kn[facility] Community Hospitalegmented neutrophils/100 WBC Manual cnt (Bld)Ordered By: Geo Thomas on 00-82-7855Ffsgwkfzy neutrophils/100 WBC (Bld)83 %50-70[facility] MiamisburgContinuous positive airway pressure (CPAP)Ordered By: Geo Thomas on 08-13-2023 Continuous positive airway pressure Respiratory system5.0 ouT0FPzjnvxcyvKettering Health MiamisburgGram stain for investigation of transfusion reaction Ordered By: Morales Mckeon on 35-27-4345Xdxighnjfdg observation Gram stain Nom (Unsp spec)2 DaysKettering Health MiamisburgNo Panel Information Ordered By: Geo Thomas on 05-49-4089Clmwj Gas Pressure Support7.0 rbM6KFsgpdfwfmKettering Health Miamisburg7.0 fmP5XSlhxsnsmdKettering Health Miamisburg Activated partial thromboplastin time (aPTT) in platelet poor plasma by coagulation aOrdered By: Geo Thomas on 92-04-8491bSBJ Coag (PPP) [Time]27.6 s25.1-36.5FRegency Hospital ToledoComment on above:A hematocrit value greater than 55% may lead to inaccurate results in coagulation testing. Patientshaving hematocrit values >55% require a special collection tube for coagulation studies. Please contact the laboratory at [phone] for redraw instructions.Beta hydroxybutyrate [Moles/volume] in Serum or Plasma Ordered By: Rancho Kay on 62-44-4589Keik hydroxybutyrate [Moles/Vol]1.50 mmol/L 0.02-0.27[facility] Health MiamisburgC reactive protein [Mass/volume] in Serum or PlasmaOrdered By: Morales Mckeon on 74-46-8067CZS [Mass/Vol]28.1 mg/dL0.0-0.5FRegency Hospital ToledoCOVID-19 Detected/Not Detected Ordered By: Morales Mckeon on 20-07-2020QSAT-CoV-2 (COVID-19) RNA JONES+non- probe Ql (Nph)Not detectedNot DetectMercy Health Defiance HospitalComment on above:This is a duplicate RP2.1 COVID (PCR) result to be used for statistical tracking purpose only.Gram stain for investigation of transfusion reaction Ordered By: Morales Mckeon on 11-40-5369Fkgxqwyudjh observation Gram stain Nom (Unsp spec)Asperigillus fumigatusKettering Health MiamisburgINR in Platelet poor plasma by Coagulation assayOrdered By: Geo Thomas on 58-29-9887TUI Coag (PPP) [Relative time]1.2 {INR}[facility] MiamisburgComment on above:INR Therapeutic Range A) Pre- and Peroperative OAT started two weeks before surgery. NOT HIP SURGERY: 1.5 - 2.5 HIP SURGERY: 2 - 3B) Primary and secondary prevention of venous THROMBOSIS: 2 - 3C) Active venous thrombosis, pulmonary embolismand prevention of recurrent venous thrombosis: 2 - 3D) Prevention of arterial thromboembolismincluding patients with mechanical heart valves: 3 - 4.5Metamyelocytes/100 WBC Manual cnt (Bld)Ordered By: Geo Thomas on 70-90-8934Ruhlqugkrllmae/100 WBC (Bld)1 %0-0[facility] MiamisburgMicroscopic observation Gram stain Nom (Unsp spec)Ordered By: Morales Mckeon on 10-90-3449Lbya stain for investigation of transfusion reactionFungal like structureKettering Health MiamisburgGram stain for investigation of transfusion reactionAsperigillus fumigatusKettering Health MiamisburgProthrombin time (PT)Ordered By: Geo Thomas on 35-28-3629SJ Coag (PPP) [Time]13.6 s9.0-12.9[facility] Comment on above:A hematocrit value greater than 55% may lead to inaccurate results in coagulation testing. Patientshaving hematocrit values >55% require a special collection tube for coagulation studies. Please contact the laboratory at [phone] for redraw instructions.Respiratory pathogens DNA and RNA panel - Nasopharynx by JONES with non-probe detectionOrdered By: Morales Mckeon on [id number] pathogens DNA and RNA panel JONES+non-probe (Nph)[facility] Hospitalerum procalcitonin measurementOrdered By: Morales Mckeon on [id number] [Mass/Vol]1.73 ng/mL0.00-0.08[facility] MiamisburgComment on above:A procalcitonin (PCT) level above 2.0 ng/mL on the firstday [...] 6-24 hoursif any concentrations <2 ng/mL are obt ained.Performed at: [address] [id number] Director: Sj Petersen MD, Phone: [phone] [Presence] in Blood by Light microscopyOrdered By: Geo Thomas on [id number] LM Ql (Bld)[facility] HospitalBacteria identified Cx Nom (U)Ordered By: Geo Thomas on [id number] culture routineCandida [facility]itan HospitalBacterial blood cultureOrdered By: Rancho Kay on [id number] identified Cx Nom (Bld)NO GROWTH 5 DAYSKettering Health MiamisburgBacteria identified Cx Nom (Bld)NO GROWTH 5 DAYSKettering Health MiamisburgBasophils/100 WBC Manual cnt (Bld)Ordered By: Geo Thomas on 73-98-0309Ashliykrm/100 WBC (Bld)0 %0-2 [facility]amisburgOvalocyte detectionOrdered By: Geo Thomas on 37-13-7600Mtquwklvrs LM Ql (Bld)[facility] HospitalPlatelets Large [Presence] in Blood by Light microscopyOrdered By: Geo Thomas on 76-66-7601Kexuopyum Large LM Ql (Bld)[facility] Hospitalchistocytes [Presence] in Blood by Light microscopy Ordered By: Geo Thomas on 22-03-9991Bmblqfbalzck LM Ql (Bld)[facility] SouthUrine culture routineOrdered By: Geo Thomas on 28-82-2443Hfxerryg identified Cx Nom (U)Rajiv glabrataKettering Health MiamisburgUrine sediment renal epithelial cell count by microscopy (number/high power field)Ordered By: Geo Thomas on 08-11-2023 Epithelial cells.renal LM.HPF (Urine sed) [#/Area]None seen [HPF]0-1FRegency Hospital ToledoNo Panel InformationOrdered By: Vania Chacon on 72-71-4660Bbfnzce Glucose #2 CommentSliding scale Parkwood Hospitalliding scale [facility] HealthAlanine aminotransferase [Enzymatic activity/volume] in Serum or PlasmaOrdered By: Mehul Garrett on 69-63-1871NQN [Catalytic activity/Vol]11 U/L7-52 [facility] MiamisburgAlkaline phosphatase [Enzymatic activity/volume] in Serum or PlasmaOrdered By: Mehul Garrett on 35-08-2759EBQ [Catalytic activity/Vol]82 U/J47-287MgjqfcouyKettering Health MiamisburgAspartate aminotransferase [Enzymatic activity/volume] in Serum or Plasma Ordered By: Mehul Garrett on 77-93-3194TMJ [Catalytic activity/Vol]31 U/L 13-39[facility] MiamisburgBilirubin.total [Mass/volume] in Serum or PlasmaOrdered By: Mehul Garrett on 45-92-6837Ssqsrpiey [Mass/Vol]0.4 mg/dL0.3-1.0[facility] MiamisburgGlobulin Calc (S) [Mass/Vol]Ordered By: Mehul Garrett on 26-87-5443Rawjijri (S) [Mass/Vol]3.9 g/dLKettering Health MiamisburgMagnesium [Mass/volume] in Serum or PlasmaOrdered By: Mehul Garrett on 10-22-2353Ownfnvwya [Mass/Vol]2.4 mg/dL1.9-2.7FRegency Hospital ToledoProtein [Mass/volume] in Serum or PlasmaOrdered By: Mehul Garrett on 67-73-0216Eaumpbv [Mass/Vol]6.2 g/dL6.4-8.9[facility] Hospitalerum or plasma albumin/globulin mass ratioOrdered By: Mehul Garrett on 06-11-5831Xpnhzdc/Globulin [Mass ratio]0.6 {ratio} [facility]amisburgAmmonia [Moles/volume] in PlasmaOrdered By: Mehul Garrett on 34-61-2235Hzamiyc (P) [Moles/Vol]39 umol/Y16-90QswpvspbtKettering Health MiamisburgBand form neutrophils/100 WBC Manual cnt (Bld)Ordered By: Geo Thomas on 92-04-8985Alqj form neutrophils/100 WBC (Bld)2 %0-5 [facility] MiamisburgDohle bodies detectionOrdered By: Geo Thomas on 01-91-2689Aaeyo body LM Ql (Bld)SlightKettering Health MiamisburgTriglyceride [Mass/volume] in Serum or PlasmaOrdered By: Orestes Mejia on 31-34-2181Nybuksymwvgj [Mass/Vol]873 mg/yF20-084BphlhkmvyKettering Health MiamisburgComment on above:If the triglyceride result is greater than 400, LDLC and related calculations cannot be calculated and resulted.TRIG ATP III CLASSIFICATIONTRIG less than 150 mg/dL NormalTRIG 150-199 mg/dL Borderline highTRIG 200-500 mg/dL High TRIG greater than 500 mg/dL Very highStandard traceable to the Center for Disease Conrtrol and Prevention (CDC) test method. Atypical perinuclear antineutrophil cytoplasmic antibodies measurementOrdered By: Sanket Hammer on 79-51-5634Ikaerlgtov cytoplasmic Ab.perinuclear.atypical IF (S) [Titer]<1:20 titerNeg:<1:20[facility] MiamisburgComment on above:Please Note: Specimen is lipemic.The atypical pANCA pattern has been observed in asignificant percentage of patients with ulcerative colitis,primary sclerosing cholangitis and autoimmune hepatitis.DNA double strand Ab [Units/volume] in SerumOrdered By: Sanket Hammer on 89-50-6630ZCS double strand Ab Qn (S)7 [IU]/mL0-9[facility] MiamisburgComment on above:Negative <5 Equivocal 5 - 9 Positive >9Glomerular basement membrane Ab [Units/volume] in Serum by ImmunoassayOrdered By: Sanket Hammer on 11-31-0911Loaiunhvxx basement membrane Ab IA Qn (S)<0.2 units0.0-0.9[facility] MiamisburgComment on above:Performed at: - [address] [id number] Director: Sj Petersen MD, Phone: [phone] at: CB - [facility] [address] [place], [place] [id number] Director: Alvaro Verde PhD, Phone: [phone] Ab [Units/volume] in Serum by ImmunoassayOrdered By: Sanket Hammer on 32-19-5149Rjxqzaxumumqihi Ab IA Qn (S) <0.2 units0.0-0.9[facility]burgNo Panel InformationOrdered By: Sanket Hammer on 41-36-6249Swqf-Nuclear Antibody InterpretSee comment. [facility] MiamisburgComment on above:Autoantibody Disease Association Conditi on Frequency ---------Antinuclear Antibody, SLE, mixed connectiveDirect (SUSANA-D) tissue diseases ---------dsDNA SLE 40 - 60% ---------Chromatin Drug induced SLE 90% SLE 48 - 97% ---------SSA (Ro) SLE 25 - 35% Sjogren's Syndrome 40 - 70% Lupus 100% ---------SSB (La) SLE 10% Sjogren's Syndrome 30% ---------Sm (anti-Juan) SLE 15 - 30% ---------SENIOR CATERING SALES MANAGER Mixed Connective TissueDisease 95%(U1 nRNP, SLE 30 - 50%anti- ribonucleoprotein) Polymyositis and/or Dermatomyositis 20% ---------Scl-70 (antiDNA Scleroderma (diffuse) 20 - 35%topoisomerase) Crest 13% ---------Ana María-1 Polymyositis and/or Dermatomyositis 20 - 40% ---------Centromere B Scleroderma - Crest variant 80%Performed at: - [address] [id number] Director: Alvaro Verde PhD, Phone: [phone] ANCA (p-ANCA) Antibody<1:20 titerNeg:<1:20[facility] MiamisburgComment on above: Please Note: Specimen is lipemic.The presence of positive fluorescence exhibiting P-ANCA orC-ANCA patterns alone is not specific for the diagnosis ofWegener's Granulomatosis (WG) or microscopic polyangiitis.Decisions about treatment should not be based solely onANCA IFA results. The International ANCA Group Consensusrecommends follow up testing of positive sera with both NV-3 and MPO-ANCA enzyme immunoassays. As many as 5% serumsamples are positive only by EIA. Ref. AM J Clin Zgemrl6858;111:507-513.SENIOR CATERING SALES MANAGER Antibody6.3 AI0.0-0.9[facility]6.3 AI0.0-0.9[facility]<1:20 titer Neg:<1:20[facility] Hospitalee comment.[facility] MiamisburgProteinase 3 Ab [Units/volume] in Serum by ImmunoassayOrdered By: Sanket Hammer on 90-47-8404Cksmkmdybf 3 Ab IA Qn (S)<0.2 units0.0-0.9[facility] Hospitalcl-70 antibody assayOrdered By: Sanket Hammer on 69-84-2450XCY-70 extractable nuclear Ab IA Qn (S)<0.2 AI0.0-0.9[facility] Hospitalerum Ana María-1 extractable nuclear antibody assay (units/volume)Ordered By: Sanket Hammer on 03-68-4211Li-1 extractable nuclear Ab Qn (S)<0.2 AI0.0-0.9[facility] Hospitalerum Sjogrens syndrome-A extractable nuclear antibody assay (units/volume)Ordered By: Sanket Hammer on 61-72-9268Dsanfeuv syndrome-A extractable nuclear Ab Qn (S)<0.2 AI0.0-0.9 [facility] Hospitalerum Sjogrens syndrome-B extractable nuclear antibody assay (units/volume)Ordered By: Sanket Hammer on 56-55-6323Ardrqaqu syndrome-B extractable nuclear Ab Qn (S)<0.2 AI0.0-0.9[facility] Hospitalerum Juan extractable nuclear antigen (MALINDA) antibody assay (units/volume)Ordered By: Sanket Hammer on 24-67-3278Yubjm extractable nuclear Ab Qn (S)<0.2 AI0.0-0.9[facility] Hospitalerum centromere protein B antibody assay (units/volume)Ordered By: Sanket Hammer on 39-25-6750Dhdzjuzpce protein B Ab Qn (S)<0.2 AI0.0-0.9[facility] Hospitalerum classic neutrophil cytoplasmic antibody titer by immunofluorescenceOrdered By: Sanket Hammer on 85-19-3771Ntcgbqwebx cytoplasmic Ab.classic IF (S) [Titer]<1:20 titer Neg:<1:20[facility] MiamisburgComment on above:Please Note: Specimen is lipemic.Serum or plasma chromatin antibody assay (units/volume)Ordered By: Sanket Hammer on 21-64-8896Woenyzmnl Ab Qn<0.2 AI0.0-0.9[facility] Hospitalerum or plasma free cefuroxime measurement (mass/volume)Ordered By: Sanket Hammer on 47-26-1269Utpcwjsuch free [Mass/Vol]PositiveNegative [facility] MiamisburgVancomycin [Mass/volume] in Serum or Plasma Ordered By: Socorro Felton on 10-75-0849Ejzdgcnlvu [Mass/Vol]15.7 ug/mL5.0-20.0 [facility] MiamisburgComment on above:Last dose: -Nucleated RBC/100 WBC Manual cnt (Bld) [Ratio]Ordered By: Geo Thomas on 08-03-2023 Nucleated RBC/100 WBC (Bld) [Ratio]1 /100{WBC}0-0[facility] MiamisburgTeardrop cell detectionOrdered By: Geo Thomas on 08-03-2023 Dacrocytes LM Ql (Bld)SlightKettering Health MiamisburgFine granular cast count in urine sediment by microscopy (number/low power field )Ordered By: Jesica Juan on 79-99-2384Haux Granular Casts LM.LPF (Urine sed) [#/Area]3-4 [LPF]0-1 [facility] MiamisburgTroponin I.cardiac [Mass/volume] in Serum or Plasma by Detection limit <= 0.01 ng/Ordered By: Geo Thomas on 25-35-8266Sskrcwpv I.cardiac DL <= 0.01 ng/mL [Mass/Vol]1819.2 pg/mL0.0-20.0 [facility] MiamisburgComment on above:Critical Result : Called to and read back by: CARLYN SLAUGHTER at: 08/02/2023 05:34:14 by:[id number] culture routineOrdered By: Jesica Juan on 96-89-8831Uzpagpob identified Cx Nom (U)No Growth 2 DaysKettering Health MiamisburgBacterial blood cultureOrdered By: Geo Thomas on 13-95-4792Fzhwcxxf identified Cx Nom (Bld)NO GROWTH 5 DAYSKettering Health MiamisburgBacteria identified Cx Nom (Bld)NO GROWTH 5 DAYSKettering Health MiamisburgErythrocyte sedimentation rate by Photometric methodOrdered By: Geo Thomas on 96-59-1850QCZ Photometric method (Bld) [Velocity]21 mm/hr0-19[facility] MiamisburgFolate [Mass/volume] in Serum or PlasmaOrdered By: Geo Thomas on 08-01-2023 Folate [Mass/Vol]8.5 ng/mL>5.9[facility] MiamisburgComment on above: Folate reference range: >5.9 ng/mlThe WHO technical consultation on folate and vitamin v37okksranjinvm has determined that folate concentrations lessthan 4 ng/ml are considered deficient.Gram stain for investigation of transfusion reactionOrdered By: Geo Thomas on 80-02-8387Hzdlpnbvxnj observation Gram stain Nom (Unsp spec)Rajiv dublinClinton Memorial Hospital Lactate [Moles/volume] in Serum or PlasmaOrdered By: Orestes Mejia on 08-01-2023 Lactate [Moles/Vol]1.0 mmol/L0.5-2.2FRegency Hospital ToledoMicroscopic observation Gram stain Nom (Unsp spec)Ordered By: Geo Thomas on 95-94-2544Tfxx stain for investigation of transfusion reactionCandida dublincristiKettering Health MiamisburgNatriuretic peptide B [Mass/Vol] Ordered By: Orestes Mejia on 41-94-2762Augiyiqpeld peptide B (Bld) [Mass/Vol] 886.0 pg/mL5-100[facility] MiamisburgRespiratory pathogens DNA and RNA panel - Nasopharynx by JONES with non-probe detectionOrdered By: Geo Thomas on 41-32-8545Ctjfjcmfghk pathogens DNA and RNA panel JONES+non-probe (Nph)[facility]amisburgVitamin B12 ser/plasOrdered By: Geo Thomas on 05-31-5805Afkbxrvge (Vitamin B12) [Mass/Vol]265 pg/gR690-718 [facility] MiamisburgAlbumin [Mass/volume] in Serum or Plasma by Bromocresol green (BCG) dye binding methoOrdered By: Rancho Kay on 07-26-2023 Albumin BCG dye [Mass/Vol]2.4 g/dL3.5-5.7FRegency Hospital Toledo Calcium [Mass/volume] in Serum or PlasmaOrdered By: Rancho Kay on 07-26-2023 Calcium [Mass/Vol]7.3 mg/dL8.6-10.3FRegency Hospital ToledoCarbon dioxide, total [Moles/volume] in Serum or PlasmaOrdered By: Rancho Kay on 48-46-6991LC5 [Moles/Vol]25.7 mmol/L21.0-31.0[facility] Chloride [Moles/volume] in Serum or PlasmaOrdered By: Rancho Kay on 07-26-2023 Chloride [Moles/Vol]101 mmol/T91-538UayqsgcqdKettering Health MiamisburgCreatinine [Mass/volume] in Serum or PlasmaOrdered By: Rancho Kay on 20-29-9172Ocjubxaitx [Mass/Vol]2.73 mg/dL0.70-1.30[facility] MiamisburgGlucose Glucometer (BldC) [Mass/Vol]Ordered By: Geo Thomas on 25-87-9543Zbpbkzg [Mass/Vol]217 mg/dLKettering Health MiamisburgGlucose [Mass/volume] in Serum or PlasmaOrdered By: Rancho Kay on 87-90-9282Ppjyhkl [Mass/Vol]199 mg/dL 70-100[facility]burgNo Panel InformationOrdered By: Rancho Kay on 63-38-561689.111 mL/MinKettering Health Miamisburg28.64[facility]amisburgPhosphate [Mass/volume] in Serum or PlasmaOrdered By: Rancho Kay on 20-14-6153Fiidhrrfn [Mass/Vol]4.6 mg/dL2.5-4.5FRegency Hospital ToledoPotassium [Moles/volume] in Serum or PlasmaOrdered By: Rancho Kay on 70-06-5680Nucdzavib [Moles/Vol]4.0 mmol/L3.5-5.1FSelect Medical Specialty Hospital - Cincinnati Northerum or plasma anion gap determinationOrdered By: Rancho Kay on 23-42-5181Sbjre gap [Moles/Vol]10.3 mmol/L6.0-15.0[facility] Hospitalodium [Moles/volume] in Serum or PlasmaOrdered By: Rancho Kay on 52-26-8736Ylfkju [Moles/Vol]133 mmol/Z323-815XxwaeubjfKettering Health Miamisburg Urea nitrogen [Mass/volume] in Serum or PlasmaOrdered By: Rancho Kay on 82-15-2251Axme nitrogen [Mass/Vol]19 mg/dL7-25[facility] Basophils Auto (Bld) [#/Vol]Ordered By: Michael Ramírez on 11-85-7474Kdetfuekn (Bld) [#/Vol]0.2 10*3/uL0.0-0.2FRegency Hospital ToledoBasophils/100 WBC Auto (Bld)Ordered By: Michael Ramírez on 93-53-4570Ackxsgurr/100 WBC (Bld)1.2 %.[facility]amisburgEosinophils Auto (Bld) [#/Vol]Ordered By: Michael Ramírez on 77-47-6536Ppmkjdhnspi (Bld) [#/Vol]0.4 10*3/uL0.0-0.45[facility]burgEosinophils/100 WBC Auto (Bld)Ordered By: Michael Ramírez on 27-45-3304Xfgckrtuibc/100 WBC (Bld)2.4 %.[facility] Erythrocyte distribution width Auto (RBC) [Ratio]Ordered By: Michael Ramírez on 82-03-6980Abnkdupfwze distribution width (RBC) [Ratio]18.1 %12.0-14.8[facility] MiamisburgHematocrit Auto (Bld) [Volume fraction]Ordered By: Michael Ramírez on 25-37-3733Qgffilrpam (Bld) [Volume fraction]23.0 %38.8-50.0 [facility] MiamisburgHemoglobin [Mass/volume] in BloodOrdered By: Michael Ramírez on 72-58-2774Jktozskpkk (Bld) [Mass/Vol]8.0 g/dL13.0-17.0[facility] MiamisburgLeukocytes [#/volume] corrected for nucleated erythrocytes in Blood by Automated counOrdered By: Michael Ramírez on 07-25-2023 WBC corrected for nucl RBC Auto (Bld) [#/Vol]17.7 10*3/uL4.1-10.5FRegency Hospital ToledoLymphocytes Auto (Bld) [#/Vol]Ordered By: Mcihael Ramírez on 00-08-1867Djufsitfpkd (Bld) [#/Vol]2.7 10*3/uL1.00-4.8[facility] MiamisburgLymphocytes/100 WBC Auto (Bld)Ordered By: Michael Ramírez on 86-00-6754Wyfviybyjyd/100 WBC (Bld)15.3 %.UC HealthH Auto (RBC) [Entitic mass]Ordered By: Michael Ramírez on 47-61-1754OMM (RBC) [Entitic mass]30.0 pg27.5-35.2FRegency Hospital ToledoMCHC Auto (RBC) [Mass/Vol]Ordered By: Michael Ramírez on 15-01-6171QNMW (RBC) [Mass/Vol]34.7 g/dL 32.5-35.6FRegency Hospital ToledoMCV Auto (RBC) [Entitic vol]Ordered By: Michael Raímrez on 53-46-1838ZGC (RBC) [Entitic vol]86.4 fL83.5-101[facility]amisburgMonocytes Auto (Bld) [#/Vol]Ordered By: Michael Ramírez on 74-52-6453Zvspqhfex (Bld) [#/Vol]1.4 10*3/uL0.0-0.8[facility]amisburgMonocytes/100 WBC Auto (Bld)Ordered By: Michael Ramírez on 07-25-2023 Monocytes/100 WBC (Bld)8.0 %.[facility] MiamisburgNeutrophils Auto (Bld) [#/Vol]Ordered By: Michael Ramírez on 66-49-9425Rkfqqvhmpre (Bld) [#/Vol] 12.9 10*3/uL1.8-7.7FRegency Hospital ToledoNeutrophils/100 WBC Auto (Bld)Ordered By: Michael Ramírez on 32-50-8917Zmmxirfobbh/100 WBC (Bld)73.1 %. [facility] MiamisburgNucleated erythrocytes [Presence] in Blood by Automated countOrdered By: Michael Ramírez on 31-77-3789Uajrrzxzk RBC Auto Ql (Bld)0.1 /100{WBC}0-0.5FRegency Hospital ToledoPlatelet mean volume Auto (Bld) [Entitic vol]Ordered By: Michael Ramírez on 34-43-7457Obfxebru mean volume (Bld) [Entitic vol]6.7 fL6.6-10.1FRegency Hospital Toledo Platelets Auto (Bld) [#/Vol]Ordered By: Michael Ramírez on 49-66-3085Kucnovdin (Bld) [#/Vol]571 10*3/aW345-401LezbzitghKettering Health MiamisburgRBC Auto (Bld) [#/Vol]Ordered By: Michael Ramírez on 30-97-1565QAK (Bld) [#/Vol]2.67 10*6/uL 3.90-5.60[facility] MiamisburgWBC Auto (Bld) [#/Vol]Ordered By: Michael Ramírez on 50-32-4230IWH (Bld) [#/Vol]17.7 10*3/uL4.1-10.5FRegency Hospital ToledoNo Panel InformationOrdered By: Vania Chacon on 48-92-4048Uid3: cleaned [facility] Anne HospitalAcanthocytes [Presence] in Blood by Light microscopyOrdered By: Tello Nava on 07-21-2023 Acanthocytes LM Ql (Bld)[facility] HospitalAnisocytosis LM Ql (Bld)Ordered By: Tello Nava on 84-94-2926Fuhteedrzijy Ql (Bld)[facility] HospitalC reactive protein [Mass/volume] in Serum or PlasmaOrdered By: Michael Ramírez on 67-09-4253RLC [Mass/Vol]8.6 mg/dL0.0-0.5 [facility] MiamisburgFerritin [Mass/volume] in Serum or Plasma Ordered By: Rancho Rahul on 53-48-9348Fkrnluqg [Mass/Vol]1089.8 ng/mL23.9-336.2 [facility]amisburgHypochromia LM Ql (Bld)Ordered By: Tello Nava on 02-13-6820Ntcemvoltrl Ql (Bld)[facility] Iron [Mass/volume] in Serum or PlasmaOrdered By: Rancho Rahul on 59-47-9576Hkke [Mass/Vol]50 ug/iI01-748JcpbaxzhnKettering Health MiamisburgIron binding capacity [Mass/volume] in Serum or PlasmaOrdered By: Rancho Rahul on 98-22-4208Rrkd binding capacity [Mass/Vol]185 ug/rP209-909OewsbkulgKettering Health MiamisburgIron saturation [Mass Fraction] in Serum or PlasmaOrdered By: Racnho Rahul on 68-07-8095Jzrt saturation [Mass fraction]27.0 %20-50[facility] MiamisburgMicrocytes LM Ql (Bld)Ordered By: Tello Nava on 44-79-0184Hxcraumleg Ql (Bld)[facility] HospitalOvalocyte detectionOrdered By: Tello Nava on 46-55-4142Jamzkipkiv LM Ql (Bld)[facility] HospitalPlatelet adequacy [Presence] in Blood by Light microscopyOrdered By: Tello Nava on 03-70-8617Kdisioyig LM Ql (Bld)IncreasedNormalKettering Health MiamisburgPlatelet morphology finding [Identifier] in BloodOrdered By: Tello Nava on 85-81-3172Mbikcdlg morphology finding Nom (Bld)Normal NormalKettering Health MiamisburgPoikilocytosis [Presence] in Blood by Light microscopyOrdered By: Tello Nava on 26-53-5952Rvaupeqxgupusj LM Ql (Bld)[facility] HospitalPolychromasia [Presence] in Blood by Light microscopyOrdered By: Tello Nava on 85-88-7608Fnewyqnljouws LM Ql (Bld)[facility] HospitalRBC morphologyOrdered By: Tello Nava on 95-12-6157QJV morphology finding Nom (Bld)N/AFSelect Medical Specialty Hospital - Cincinnati Northchistocytes [Presence] in Blood by Light microscopyOrdered By: Tello Nvaa on 58-48-2393Zkoexuwitwgk LM Ql (Bld)[facility] HospitalTransferrin [Mass/volume] in Serum or PlasmaOrdered By: Rancho Kay on 42-56-9199Epebhsgwpbx [Mass/Vol]132 mg/zG392-614GqulbldvxKettering Health MiamisburgAmphetamine Screen Ql (U)Ordered By: Alfonso Chavez on 07-20-2023 Amphetamines Ql (U)NegativeNegativeKettering Health MiamisburgAutomated erythrocytes count in urine sediment (number/area)Ordered By: Tello Nava on 76-83-5360FAM Auto (Urine sed) [#/Area]Innumerable [HPF]0-4FRegency Hospital ToledoAutomated leukocytes count in urine sediment (number/area)Ordered By: Tello Nava on 11-81-1851NVT Auto (Urine sed) [#/Area]20-49 [HPF]0-4 [facility] MiamisburgAutomated urine hyaline casts count (number/volume)Ordered By: Tello aNva on 59-61-2437Spmmpcj casts Auto (U) [#/Vol]1-2 [LPF]0-1FRegency Hospital ToledoBarbiturates [Presence] in Urine by Screen methodOrdered By: Alfonso Chavez on 62-97-7327Zjgvwklyhovw Screen Ql (U)NegativeNegativeKettering Health MiamisburgBenzodiazepines Screen Ql (U)Ordered By: Alfonso Chavez on 60-69-3813Nbjkwvzgxjetfgd Ql (U)PositiveNegative [facility]amisburgBenzoylecgonine [Presence] in Urine by Screen methodOrdered By: Alfonso Chavez on 14-03-2931Odgyebzjanacthr Screen Ql (U) NegativeNegativeKettering Health MiamisburgBilirubin Test strip Ql (U) Ordered By: Tello Nava on 50-96-1097Hczihxbvh Ql (U)2+NegativeKettering Health MiamisburgCannabinoids [Presence] in Urine by Screen methodOrdered By: Alfonso Chavez on 34-35-3160Zzhfybwwwkoc Screen Ql (U)See commentNegative [facility]amisburgCasts typing in urine sediment by light microscopyOrdered By: Tello Nava on 92-98-4201Kcrmb LM Nom (Urine sed)None seen [LPF]None SeenKettering Health MiamisburgCoarse granular casts count in urine sediment by microscopy low power field (number/aOrdered By: Tello Nvaa on 25-35-3798Andqzp Granular Casts LM.LPF (Urine sed) [#/Area]0-1 [LPF] 0-1FRegency Hospital ToledoColor Auto (U)Ordered By: Tello Nava on 91-74-5587Aheno (U)OrangeYellowKettering Health MiamisburgCreatinine [Mass/volume] in UrineOrdered By: Tello Nava on 25-36-9636Kupfstrbno (U) [Mass/Vol]200.0 mg/dL14.0-26.0[facility] MiamisburgKetones Auto test strip (U) [Mass/Vol]Ordered By: Tello Nava on 17-40-4362Ytnewbf (U) [Mass/Vol]TraceNegativeKettering Health MiamisburgNitrite Test strip Ql (U)Ordered By: Tello Nava on 15-85-8300Jvybnpx Ql (U)PositiveNegative [facility]burgNo Panel InformationOrdered By: Tello Nava on 79-28-2890Kgn commentKettering Health MiamisburgOpiates [Presence] in Urine by Screen methodOrdered By: Alfonso Chavez on 98-87-4799Fdhgszw Screen Ql (U)See commentNegativeKettering Health MiamisburgPhencyclidine Screen Ql (U)Ordered By: Alfonso Chavez on 17-76-1762Rdaxvoftkrnsu Ql (U)NegativeNegative [facility]burgProtein Auto test strip (U) [Mass/Vol]Ordered By: Tello Nava on 61-19-1385Nodzyaq (U) [Mass/Vol]300 mg/dLNegativeKnox Community Hospitalodium [Moles/volume] in UrineOrdered By: Tello Nava on 78-52-6612Wgfajz (U) [Moles/Vol]19 mmol/LFRegency Hospital Toledo Specific gravity Auto test strip (U) [Rel density]Ordered By: Tello Nava on 69-75-4015Savjmldz gravity (U) [Rel density]1.0301.001-1.030[facility] Hospitalquamous epithelial cells detection in urine sediment by light microscopyOrdered By: Tello Nava on 69-77-7539Biuspuphfv cells.squamous LM Ql (Urine sed)3-4 [HPF]0-2FRegency Hospital ToledoUrine bacteria detection by automated methodOrdered By: Tello Nava on 93-02-1577Nqpkwwib Auto Ql (U)None seenNone [facility] HospitalUrine clarity by refractometry automatedOrdered By: Tello Nava on 93-46-8860Wufmzht Refractometry automated (U)TurbidCleHarrison Community HospitalUrine glucose measurement by automated test strip (mass/volume)Ordered By: Tello Nava on 39-43-7455Vzqtvon Auto test strip (U) [Mass/Vol]100 mg/dLNormal [facility] MiamisburgUrine hemoglobin detection by automated test stripOrdered By: Tello Nava on 96-72-8976Ldtazcywpi Auto test strip Ql (U)3+ NegativeKettering Health MiamisburgUrine leukocyte esterase detection by automated test stripOrdered By: Tello Nava on 89-74-4590Waxaeluqw esterase Auto test strip Ql (U)2+NegativeKettering Health MiamisburgUrine sediment erythrocyte cast count by microscopy (number/low power field)Ordered By: Tello Nava on 07-38-6965ZLM casts LM.LPF (Urine sed) [#/Area]0-1 [LPF]None Seen [facility] MiamisburgUrobilinogen Auto test strip (U) [Mass/Vol] Ordered By: Tello Nava on 39-01-9826Feixgxwgqiqa (U) [Mass/Vol]Normal mg/dL NormalKettering Health MiamisburgpH Auto test strip (U)Ordered By: Tello Nava on 12-76-9097zT (U)5.0 [pH]5.0-9.0[facility] MiamisburgBand form neutrophils/100 WBC Manual cnt (Bld)Ordered By: Tello Nava on 83-02-5886Vtky form neutrophils/100 WBC (Bld)2 %0-5FRegency Hospital ToledoBasophils/100 WBC Manual cnt (Bld)Ordered By: Tello Nava on 07-19-2023 Basophils/100 WBC (Bld)1 %0-2FRegency Hospital ToledoEosinophils/100 WBC Manual cnt (Bld)Ordered By: Tello Nava on 73-18-0616Vneebdiktkk/100 WBC (Bld)1 %1-3FRegency Hospital ToledoLymphocytes/100 WBC Manual cnt (Bld) Ordered By: Tello Nava on 51-21-6598Rlgqbmgkspo/100 WBC (Bld)2 %18-42 [facility]burgMetamyelocytes/100 WBC Manual cnt (Bld)Ordered By: Tello Nava on 31-10-1698Usgfavmzjlnprk/100 WBC (Bld)1 %0-0[facility]burgMonocytes/100 WBC Manual cnt (Bld)Ordered By: Tello Nava on 58-55-4465Jbuwfjutd/100 WBC (Bld)7 %2-11[facility]burgMyelocytes/100 WBC Manual cnt (Bld)Ordered By: Tello Nava on 10-99-7788Msmmxrnhac/100 WBC (Bld)2 %0-0[facility] Segmented neutrophils/100 WBC Manual cnt (Bld)Ordered By: Tello Nava on 79-27-4098Jylegqnzv neutrophils/100 WBC (Bld)85 %50-70[facility] MiamisburgUrine culture routineOrdered By: Tello Nava on 48-85-8084Avocyeta identified Cx Nom (U)2 DaysKettering Health MiamisburgBand form neutrophils/100 WBC Manual cnt (Bld)Ordered By: Tello Nava on 16-99-9480Txkj form neutrophils/100 WBC (Bld)4 %0-5FRegency Hospital ToledoBasophils Auto (Bld) [#/Vol]Ordered By: Tello Nava on 67-48-6767Sxahfizzp (Bld) [#/Vol]N/[facility]Basophils/100 WBC Auto (Bld)Ordered By: Tello Nava on 75-64-8070Ghdkkqdws/100 WBC (Bld)N/[facility] HospitalBasophils/100 WBC Manual cnt (Bld)Ordered By: Tello Nava on 41-88-9278Sappbmiug/100 WBC (Bld)1 %0-2FRegency Hospital ToledoBurr cells [Presence] in Blood by Light microscopyOrdered By: Tello Nava on 31-53-3347Ogoe cells LM Ql (Bld)SlightKettering Health MiamisburgCalcium [Mass/volume] in Serum or PlasmaOrdered By: Tello Nava on 53-93-7216Hpftakh [Mass/Vol]7.1 mg/dL8.6-10.3FRegency Hospital ToledoCarbon dioxide, total [Moles/volume] in Serum or PlasmaOrdered By: Tello Nava on 07-18-2023 CO2 [Moles/Vol]23.7 mmol/L21.0-31.0[facility] MiamisburgChloride [Moles/volume] in Serum or PlasmaOrdered By: Tello Nava on 07-18-2023 Chloride [Moles/Vol]95 mmol/E21-520YmqvuzrfyKettering Health MiamisburgCreatinine [Mass/volume] in Serum or PlasmaOrdered By: Tello Nava on 07-18-2023 Creatinine [Mass/Vol]4.82 mg/dL0.70-1.30[facility] MiamisburgComment on above:Delta: 6.18 on 07/17/23-0647Eosinophils Auto (Bld) [#/Vol]Ordered By: Tello Nava on 13-33-7528Ifeocjltltk (Bld) [#/Vol]N/[facility] HospitalEosinophils/100 WBC Auto (Bld)Ordered By: Tello Nava on 42-57-8077Asawzwgrsvq/100 WBC (Bld)N/[facility] Eosinophils/100 WBC Manual cnt (Bld)Ordered By: Tello Nava on 07-18-2023 Eosinophils/100 WBC (Bld)3 %1-3FRegency Hospital ToledoErythrocyte distribution width Auto (RBC) [Ratio]Ordered By: Tello Nava on 07-18-2023 Erythrocyte distribution width (RBC) [Ratio]14.4 %12.0-14.8[facility] MiamisburgGlucose Glucometer (dC) [Mass/Vol]Ordered By: Tello Nava on 02-82-6778Gpyddqp [Mass/Vol]280 mg/dLKettering Health MiamisburgComment on above:Random Glucose Reference Range is dependent on time and content of last meal. Glucose of more than 200 mg/dL in a nonstressed, ambulatory subject supports the diagnosis of Diabetes Mellitus.Glucose [Mass/volume] in Serum or PlasmaOrdered By: Tello Nava on 60-87-3358Gjjwwpy [Mass/Vol]148 mg/rP09-096 [facility] MiamisburgComment on above:ADA recommended reference rangeRandom Glucose Reference Range is dependent on time and content of last meal. Glucose of more than 200 mg/dL in a nonstressed, ambulatory subject supports the diagnosisof Diabetes Mellitus.Hematocrit Auto (Bld) [Volume fraction]Ordered By: Tello Nava on 46-05-4977Zqtqldmhcv (Bld) [Volume fraction]20.4 %38.8-50.0[facility] MiamisburgHemoglobin [Mass/volume] in BloodOrdered By: Tello Nava on 79-80-5158Pftpdjnmte (Bld) [Mass/Vol]7.0 g/dL13.0-17.0[facility] MiamisburgLeukocytes [#/volume] corrected for nucleated erythrocytes in Blood by Automated coun Ordered By: Tello Nava on 67-11-4956TTT corrected for nucl RBC Auto (Bld) [#/Vol]19.7 10*3/uL4.1-10.5FRegency Hospital ToledoLymphocytes Auto (Bld) [#/Vol]Ordered By: Tello Nava on 94-97-7858Fhzomfbbjae (Bld) [#/Vol] N/[facility] HospitalLymphocytes/100 WBC Auto (Bld)Ordered By: Tello Nava on 73-99-0514Bwdwitfucwx/100 WBC (Bld)N/[facility] HospitalLymphocytes/100 WBC Manual cnt (Bld)Ordered By: Tello Nava on 80-51-1778Przmfadkaay/100 WBC (Bld)8 %18-42UC HealthH Auto (RBC) [Entitic mass]Ordered By: Tello Nava on 39-92-4138KBC (RBC) [Entitic mass]29.5 pg27.5-35.2FRegency Hospital ToledoMCHC Auto (RBC) [Mass/Vol]Ordered By: Tello Nava on 42-82-5093FXWN (RBC) [Mass/Vol]34.4 g/dL 32.5-35.6FRegency Hospital ToledoMCV Auto (RBC) [Entitic vol]Ordered By: Tello Nava on 89-45-4668GQS (RBC) [Entitic vol]85.8 fL83.5-101[facility] MiamisburgMetamyelocytes/100 WBC Manual cnt (Bld)Ordered By: Tello Nava on 57-22-6800Qxocknlbwrufeq/100 WBC (Bld)3 %0-0[facility] MiamisburgMonocytes Auto (Bld) [#/Vol]Ordered By: Tello Nava on 28-17-7009Cksldtgfy (Bld) [#/Vol]N/[facility] Monocytes/100 WBC Auto (Bld)Ordered By: Tello Nava on 07-18-2023 Monocytes/100 WBC (Bld)N/[facility] HospitalMonocytes/100 WBC Manual cnt (Bld)Ordered By: Tello Nava on 21-31-8145Ftgnuvqmw/100 WBC (Bld)3 %2-11[facility] MiamisburgMyelocytes/100 WBC Manual cnt (Bld) Ordered By: Tello Nava on 13-27-6277Nwhlbyljoz/100 WBC (Bld)2 %0-0[facility] MiamisburgNeutrophils Auto (Bld) [#/Vol]Ordered By: Tello Nava on 73-15-2345Ayjmtxbfpil (Bld) [#/Vol]N/[facility] Neutrophils/100 WBC Auto (Bld)Ordered By: Tello Nava on 07-18-2023 Neutrophils/100 WBC (Bld)N/[facility] HospitalNo Panel InformationOrdered By: Tello Nava on 84-14-4717Rmgfntjsa GFR (CKD-EPI)12.189 mL/MinKettering Health MiamisburgPharmacy Creatinine Clearance (Chem15.95 [facility] MiamisburgNucleated erythrocytes [Presence] in Blood by Automated countOrdered By: Tello Nava on 15-18-2302Dlzbruufm RBC Auto Ql (Bld)N/[facility] HospitalPlatelet adequacy [Presence] in Blood by Light microscopyOrdered By: Tello Nava on 94-34-2905Ftoyblbec LM Ql (Bld) IncreasedNormSelect Medical Specialty Hospital - AkronPlatelet mean volume Auto (Bld) [Entitic vol]Ordered By: Tello Nava on 68-01-0457Fibthcsv mean volume (Bld) [Entitic vol]7.4 fL6.6-10.1FRegency Hospital ToledoPlatelet morphology finding [Identifier] in BloodOrdered By: Tello Nava on 11-53-4789Gfvuqqkw morphology finding Nom (Bld)NormalNormSelect Medical Specialty Hospital - [facility]ron Platelets Auto (Bld) [#/Vol]Ordered By: Tello Nava on 61-84-3555Kfbhpgxfo (Bld) [#/Vol]457 10*3/lN351-302HpcgsnrxoKettering Health MiamisburgPoikilocytosis [Presence] in Blood by Light microscopyOrdered By: Tello Nava on 07-18-2023 Poikilocytosis LM Ql (Bld)[facility] HospitalPolychromasia [Presence] in Blood by Light microscopyOrdered By: Tello Nava on 07-18-2023 Polychromasia LM Ql (Bld)[facility] HospitalPotassium [Moles/volume] in Serum or PlasmaOrdered By: Tello Nava on 07-18-2023 Potassium [Moles/Vol]4.6 mmol/L3.5-5.1FRegency Hospital ToledoRBC Auto (Bld) [#/Vol]Ordered By: Tello Nava on 56-03-4068OUH (Bld) [#/Vol]2.37 10*6/uL3.90-5.60[facility] morphologyOrdered By: Tello Nava on 65-26-7569GUZ morphology finding Nom (Bld)NormalNormal Knox Community Hospitalchistocytes [Presence] in Blood by Light microscopyOrdered By: Tello Nava on 51-80-3132Hblpgctkqbcl LM Ql (Bld)[facility] Hospitalegmented neutrophils/100 WBC Manual cnt (Bld) Ordered By: Tello Nava on 87-16-7110Uhgjqrslg neutrophils/100 WBC (Bld)77 % 50-70[facility] Hospitalerum or plasma anion gap determination Ordered By: Tello Nava on 58-55-0316Sdbfn gap [Moles/Vol]TNPKettering Health MiamisburgComment on above:Test not performedSodium [Moles/volume] in Serum or PlasmaOrdered By: Tello Nava on 10-60-6809Dgtcks [Moles/Vol]128 mmol/F915-511WhapejlixKettering Health MiamisburgUrea nitrogen [Mass/volume] in Serum or PlasmaOrdered By: Tello Nava on 56-25-9576Erci nitrogen [Mass/Vol] 66 mg/dL7-25[facility] MiamisburgComment on above:Delta: 99 on 07/17/23-0647WBC Auto (Bld) [#/Vol]Ordered By: Tello Nava on 70-29-8433PWQ (Bld) [#/Vol]19.7 10*3/uL4.1-10.5Fire[facility] Medical CenterAcanthocytes [Presence] in Blood by Light microscopyOrdered By: Rohan Han on 07-17-2023 Acanthocytes LM Ql (Bld)[facility] HospitalBlood toxic granulation detection by light microscopyOrdered By: Rohan Han on 83-92-9807Yvarh granules LM Ql (Bld)[facility] HospitalGiant platelets/100 leukocytes [Ratio] in Blood by Manual countOrdered By: Rohan Han on 11-16-8558Bbadk platelets/100 WBC Manual cnt (Bld) [Ratio]1 /100{WBC} [facility] MiamisburgNo Panel InformationOrdered By: Tello Nava on 19-55-8749Ctzikjg Glucose CommentGlu2: cleaned [facility] B virus surface Ab [Presence] in SerumOrdered By: Sanket Hammer on 63-08-4471NFU surface Ab Ql (S)Non-Reactive.[facility] MiamisburgComment on above:Non Reactive: Inconsistent with immunity, less than 10 mIU/mL Reactive: Consistent with immunity, greater than 9.9 mIU/mL Hepatitis B virus surface Ag [Presence] in Serum or Plasma by ImmunoassayOrdered By: Sanket Hammer on 01-72-1926DYR surface Ag IA QlNegativeNegProMedica Memorial Hospital C virus IgG Ab [Presence] in Serum or Plasma by ImmunoassayOrdered By: Sanket Hammer on 61-02-0435WIL IgG IA QlNon-ReactiveNon ReactiveMiddletown Hospital C virus RNA [Units/volume] (viral load) in Serum or Plasma by JONES with probOrdered By: Sanket Hammer on 91-02-2919GGY RNA JONES+probe QnN/[facility] C virus RNA [log units/volume] (viral load) in Serum or Plasma by JONES withOrdered By: Sanket Hammer on 56-11-6654QMU RNA JONES+probe [Log units/Vol]N/[facility] HospitalNo Panel InformationOrdered By: Sanket Hammer on 50-19-2683Qzdsdtwrb A IgM AntibodyNegativeNegativeFirelands Regional Medical CenterHepatitis B Core IgM AntibodyNegativeNegativeKettering Health MiamisburgHepatitis B Core Total AntibodyNegativeNegAultman Orrville HospitalComment on above:Performed at: [facility] [id number] Director: Alvaro Verde PhD, Phone: [phone] Hepatitis C InterpretationSee comment.[facility] MiamisburgComment on above:Not infected with HCV unless early or acute infection issuspected (which may be delayed in an immunocompromisedindividual), or other evidence exists to indicate HCVinfection.NegativeNegativeKnox Community Hospitalee comment.[facility] MiamisburgC reactive protein [Mass/volume] in Serum or PlasmaOrdered By: Michael Ramírez on 97-80-6441EJV [Mass/Vol]9.7 mg/dL0.0-0.5FRegency Hospital ToledoAnisocytosis LM Ql (Bld)Ordered By: Shun Rubin on 70-18-8002Rhzzaptxfugn Ql (Bld)SlightKettering Health MiamisburgAutomated erythrocytes count in urine sediment (number/area)Ordered By: Tello Nava on 44-83-1521OIB Auto (Urine sed) [#/Area]10-19 [HPF]0-4FRegency Hospital ToledoAutomated leukocytes count in urine sediment (number/area)Ordered By: Tello Nava on 99-33-9051DMC Auto (Urine sed) [#/Area]20-49 [HPF]0-4FRegency Hospital Toledo Automated urine hyaline casts count (number/volume)Ordered By: Tello Nava on 91-02-6996Wpufiaa casts Auto (U) [#/Vol]5-9 [LPF]0-1FRegency Hospital ToledoBilirubin Test strip Ql (U)Ordered By: Tello Nava on 07-14-2023 Bilirubin Ql (U)1+NegativeKettering Health MiamisburgCast typing in urine sediment by light microscopyOrdered By: Tello Nava on 73-07-0821Fmhuz LM Nom (Urine sed)None seen [LPF]None SeenKettering Health MiamisburgColor Auto (U)Ordered By: Tello Nava on 07-07-6287Cqfay (U)OrangeYellowKettering Health MiamisburgCreatinine [Mass/volume] in UrineOrdered By: Tello Nava on 29-86-0234Lbtlkgvulk (U) [Mass/Vol]172.0 mg/dL14.0-26.0[facility] MiamisburgKetones Auto test strip (U) [Mass/Vol]Ordered By: Tello Nava on 32-42-0138Mqulqdd (U) [Mass/Vol]TraceNegativeKettering Health MiamisburgMicrocytes LM Ql (Bld)Ordered By: Shun Rubin on 07-14-2023 Microcytes Ql (Bld)SlightKettering Health MiamisburgNitrite Test strip Ql (U)Ordered By: Tello Nava on 09-49-0952Filzite Ql (U)PositiveNegative [facility] MiamisburgProtein Auto test strip (U) [Mass/Vol]Ordered By: Tello Nava on 15-07-3591Xstdade (U) [Mass/Vol]30 mg/dLNegHolzer Health Systemodium [Moles/volume] in UrineOrdered By: Tello Nava on 67-19-1219Gsbwcm (U) [Moles/Vol]25.0 mmol/LFRegency Hospital Toledo Comment on above:No reference range establishedSpecific gravity Auto test strip (U) [Rel density]Ordered By: Tello Nava on 00-85-8218Obfjjikr gravity (U) [Rel density]1.0241.001-1.030Kn[facility] Community Hospitalquamous epithelial cells detection in urine sediment by light microscopyOrdered By: Tello Nava on 72-40-8912Uosfmuulbg cells.squamous LM Ql (Urine sed)5-9 [HPF] 0-2FRegency Hospital ToledoUrine bacteria detection by automated method Ordered By: Tello Nava on 29-21-2268Gleblbbp Auto Ql (U)1+None SeenKettering Health MiamisburgUrine clarity by refractometry automatedOrdered By: Tello Nava on 74-98-8225Pxdcsko Refractometry automated (U)TurbidClear [facility] MiamisburgUrine culture routineOrdered By: Tello Nava on 62-83-0795Rtsyfmlk identified Cx Nom (U)No Growth 2 DaysKettering Health MiamisburgBacteria identified Cx Nom (U)No Growth 2 DaysKettering Health MiamisburgUrine glucose measurement by automated test strip (mass/volume) Ordered By: Tello Nava on 97-29-4606Eexzpxa Auto test strip (U) [Mass/Vol] 100 mg/dLNoKettering Health TroyUrine hemoglobin detection by automated test stripOrdered By: Tello Nava on 08-75-5634Wrnkhxyivm Auto test strip Ql (U)3+NegativeKettering Health MiamisburgUrine leukocyte esterase detection by automated test stripOrdered By: Tello Nava on 07-14-2023 Leukocyte esterase Auto test strip Ql (U)2+NegativeKettering Health MiamisburgUrobilinogen Auto test strip (U) [Mass/Vol]Ordered By: Tello Nava on 54-78-4647Qiokxzzcuwxt (U) [Mass/Vol]Normal mg/dLNoKettering Health TroypH Auto test strip (U)Ordered By: Tello Nava on 08-88-4147cB (U)5.0 [pH]5.0-9.0[facility] MiamisburgVancomycin [Mass/volume] in Serum or Plasma --peakOrdered By: Arnaldo Thomas on 40-11-3761Jwyyukegxj peak [Mass/Vol]13.9 ug/mL20.0-40.0[facility] MiamisburgComment on above: Last dose: -Activated partial thromboplastin time (aPTT) in platelet poor plasma by coagulation aOrdered By: Jesica Juan on 02-54-1095nNLP Coag (PPP) [Time]28.7 s25.1-36.5FRegency Hospital ToledoComment on above:A hematocrit value greater than 55% may lead to inaccurate results in coagulation testing. Patients having hematocrit values >55% require a special collection tube for coagulation studies. Please contact the laboratory at [phone] for redraw instructions. Glucose mean value [Mass/volume] in Blood Estimated from glycated hemoglobin Ordered By: Jesica Juan on 47-66-7001Bjqlkbc glucose Estimated from glycated hemoglobin (Bld) [Mass/Vol]186 mg/dLKettering Health MiamisburgGram stain for investigation of transfusion reactionOrdered By: Rohan Han on 45-99-8183Fveibqgldpe observation Gram stain Nom (Unsp spec)Anaerococcus vaginalisKettering Health MiamisburgMicroscopic observation Gram stain Nom (Unsp spec)Staphylococcus aureusKettering Health MiamisburgHemoglobin A1c percentageOrdered By: Jesica Juan on 17-96-9764EiB0p (Bld) [Mass fraction]8.1 % 4.3-5.6FRegency Hospital ToledoComment on above:Increased risk for diabetes: 5.7 - 6.4diabetes: >6.4glycemic control for adults with diabetes: &l t;7.0INR in Platelet poor plasma by Coagulation assayOrdered By: Jesica Juan on 34-64-1258XCK Coag (PPP) [Relative time]1.1 {INR}[facility] MiamisburgComment on above:INR Therapeutic Range A) Pre- and Peroperative OAT started two weeks before surgery. NOT HIP SURGERY: 1.5 - 2.5 HIP SURGERY: 2 - 3B) Primary and secondary prevention of venous THROMBOSIS: 2 - 3C) Active venous thrombosis, pulmonary embolismand prevention of recurrent venous thrombosis: 2 - 3D) Prevention of arterial thromboembolismincluding patients with mechanical heart valves: 3 - 4.5Magnesium [Mass/volume] in Serum or PlasmaOrdered By: Jesica Juan on 66-52-5997Muvkbmygh [Mass/Vol]1.7 mg/dL1.9-2.7FRegency Hospital ToledoMicroscopic observation Gram stain Nom (Unsp spec)Ordered By: Rohan Han on 45-24-5804Abys stain for investigation of transfusion reaction Anaerococcus vaginalisKettering Health MiamisburgGram stain for investigation of transfusion reactionStaphylococcus aureusKettering Health MiamisburgProthrombin time (PT)Ordered By: Jesica Juan on 86-99-6713YI Coag (PPP) [Time]12.7 s9.0-12.9[facility] MiamisburgComment on above:A hematocrit value greater than 55% may lead to inaccurate results in coagulation testing. Patientshaving hematocrit values >55% require a special collection tube for coagulation studies. Please contact the laboratory at [phone] for redraw instructions.Bacteria identified Aer cx Nom (Unsp spec)Ordered By: Brittney Hudson on 96-35-1734Bvwcypvphhd Wound CultureStaphylococcus aureus [facility] MiamisburgAerobic cultureStaphylococcus aureusKettering Health MiamisburgBacterial blood cultureOrdered By: Brittney Hudsno on 81-66-9493Mbbdoorh identified Cx Nom (Bld)NO GROWTH 5 DAYSKettering Health MiamisburgBacteria identified Cx Nom (Bld)NO GROWTH 5 DAYSKettering Health MiamisburgBacteria identified Cx Nom (Bld)NO GROWTH 5 DAYSKettering Health MiamisburgBacteria identified Cx Nom (Bld)NO GROWTH 5 DAYSKettering Health MiamisburgBasophils Auto (Bld) [#/Vol]Ordered By: Brittney Hudson on 94-96-5469Ubzajgzem (Bld) [#/Vol]0.0 10*3/uL0.0-0.2FRegency Hospital ToledoBasophils/100 WBC Auto (Bld)Ordered By: Brittney Hudson on 07-10-2023 Basophils/100 WBC (Bld)0.1 %.[facility] MiamisburgC reactive protein [Mass/volume] in Serum or PlasmaOrdered By: Brittney Hudson on 25-70-7444PHC [Mass/Vol]28.5 mg/dL0.0-0.5FRegency Hospital ToledoCalcium [Mass/volume] in Serum or PlasmaOrdered By: Brittney Hudson on 59-73-6190Oroscvp [Mass/Vol]9.1 mg/dL8.6-10.3FRegency Hospital ToledoCarbon dioxide, total [Moles/volume] in Serum or PlasmaOrdered By: Brittney Hudson on 07-10-2023 CO2 [Moles/Vol]25.5 mmol/L21.0-31.0[facility] MiamisburgChloride [Moles/volume] in Serum or PlasmaOrdered By: Brittney Hudson on 07-10-2023 Chloride [Moles/Vol]98 mmol/K22-134QyaetgzfcKettering Health MiamisburgCreatinine [Mass/volume] in Serum or PlasmaOrdered By: Brittney Hudson on 07-10-2023 Creatinine [Mass/Vol]1.23 mg/dL0.70-1.30[facility] Eosinophils Auto (Bld) [#/Vol]Ordered By: Brittney Hudson on 07-10-2023 Eosinophils (Bld) [#/Vol]0.1 10*3/uL0.0-0.45[facility] Eosinophils/100 WBC Auto (Bld)Ordered By: Brittney Hudson on 07-10-2023 Eosinophils/100 WBC (Bld)0.3 %.[facility] MiamisburgErythrocyte distribution width Auto (RBC) [Ratio]Ordered By: Brittney Hudson on 07-10-2023 Erythrocyte distribution width (RBC) [Ratio]13.7 %12.0-14.8[facility] MiamisburgErythrocyte sedimentation rate by Photometric methodOrdered By: Jesica Juan on 61-36-2133XVM Photometric method (Bld) [Velocity]62 mm/hr0-19 [facility] MiamisburgGlucose Glucometer (BldC) [Mass/Vol]Ordered By: Arnaldo Thomas on 01-20-0157Egilmiy [Mass/Vol]188 mg/dLKettering Health MiamisburgComment on above:Random Glucose Reference Range is dependent on time and content of last meal. Glucose of more than 200 mg/dL in a nonstressed, ambulatory subject supports the diagnosis of Diabetes Mellitus.Glucose [Mass/volume] in Serum or PlasmaOrdered By: Brittney Hudson on 52-12-6661Hzffwyx [Mass/Vol]57 mg/oO52-141GjinxxrccKettering Health MiamisburgComment on above:ADA recommended reference rangeRandom Glucose Reference Range is dependent on time and content of last meal. Glucose of more than 200 mg/dL in a nonstressed, ambulatory subject supports the diagnosisof Diabetes Mellitus.Hematocrit Auto (Bld) [Volume fraction]Ordered By: Brittney Hudson on 86-68-9053Qckneqkjab (Bld) [Volume fraction]35.3 %38.8-50.0[facility] MiamisburgHemoglobin [Mass/volume] in BloodOrdered By: Brittney Hudson on 74-89-3548Lfclsyhpxe (Bld) [Mass/Vol]11.9 g/dL13.0-17.0[facility] MiamisburgLactate [Moles/volume] in Serum or PlasmaOrdered By: Brittney Hudson on 07-10-2023 Lactate [Moles/Vol]1.2 mmol/L0.5-2.2FRegency Hospital ToledoLeukocytes [#/volume] corrected for nucleated erythrocytes in Blood by Automated coun Ordered By: Brittney Hudson on 37-97-9446VUZ corrected for nucl RBC Auto (Bld) [#/Vol]32.8 10*3/uL4.1-10.5FRegency Hospital ToledoLymphocytes Auto (Bld) [#/Vol]Ordered By: Brittney Hudson on 10-90-3525Pzksjipvrvg (Bld) [#/Vol] 2.1 10*3/uL1.00-4.8[facility] MiamisburgLymphocytes/100 WBC Auto (Bld)Ordered By: Brittney Hudson on 94-96-9388Egbfqwypspf/100 WBC (Bld)6.5 %. [facility] HealthH Auto (RBC) [Entitic mass]Ordered By: Brittney Hudson on 91-69-7626TDW (RBC) [Entitic mass]29.8 pg27.5-35.2FRegency Hospital ToledoMCHC Auto (RBC) [Mass/Vol]Ordered By: Brittney Hudson on 67-85-8852LBLP (RBC) [Mass/Vol]33.6 g/dL32.5-35.6FRegency Hospital ToledoMCV Auto (RBC) [Entitic vol]Ordered By: Brittney Hudson on 13-49-6360MRV (RBC) [Entitic vol]88.6 fL83.5-101[facility] MiamisburgMagnesium [Mass/volume] in Serum or PlasmaOrdered By: Brittney Hudson on 07-10-2023 Magnesium [Mass/Vol]1.9 mg/dL1.9-2.7FRegency Hospital ToledoMonocyte distribution width [Entitic volume] in Blood by AutomatedOrdered By: Brittney Hudson on 95-13-5371Xienkbwc distribution width Auto (Bld) [Entitic vol]22.38 % 0.00-20.00[facility] MiamisburgComment on above:For adults in ED, MDW > 20.0 may be associated with a higher risk of sepsis during the first 12 h rs of hospital admissionMonocytes Auto (Bld) [#/Vol]Ordered By: Brittney Hudson on 83-07-5184Hagjitvmi (Bld) [#/Vol]2.7 10*3/uL0.0-0.8[facility] MiamisburgMonocytes/100 WBC Auto (Bld)Ordered By: Brittney Hudson on 07-10-2023 Monocytes/100 WBC (Bld)8.4 %.[facility] MiamisburgNeutrophils Auto (Bld) [#/Vol]Ordered By: Brittney Hudson on 36-90-4516Wlbhncnbxsy (Bld) [#/Vol] 27.7 10*3/uL1.8-7.7FRegency Hospital ToledoNeutrophils/100 WBC Auto (Bld)Ordered By: Brittney Hudson on 48-46-3325Rsxrlktnozb/100 WBC (Bld)84.7 %. [facility]amisburgNo Panel InformationOrdered By: Arnaldo Thomas on 70-73-3239Kyvtdoi Glucose CommentGlu2: cleaned meterKettering Health MiamisburgNo Panel InformationOrdered By: Brittney Hudson on 07-10-2023 Estimated GFR (CKD-EPI)> 60.0 mL/MinKettering Health MiamisburgPharmacy Creatinine Clearance (Chem59.59[facility] MiamisburgNucleated erythrocytes [Presence] in Blood by Automated countOrdered By: Brittney Hudson on 64-13-0783Owhtdwypt RBC Auto Ql (Bld)0.0 /100{WBC}0-0.5FRegency Hospital ToledoPlatelet adequacy [Presence] in Blood by Light microscopyOrdered By: Brittney Hudson on 55-86-8698Xpxlffnef LM Ql (Bld)IncreasedNormSelect Medical Specialty Hospital - AkronPlatelet mean volume Auto (Bld) [Entitic vol]Ordered By: Brittney Hudson on 00-07-9788Hanfczwm mean volume (Bld) [Entitic vol]7.7 fL 6.6-10.1FRegency Hospital ToledoPlatelet morphology finding [Identifier] in BloodOrdered By: Brittney Hudson on 34-10-3548Rbrqrabn morphology finding Nom (Bld)N/AFRegency Hospital ToledoPlatelets Auto (Bld) [#/Vol]Ordered By: Brittney Hudson on 36-04-6120Wgebcwswm (Bld) [#/Vol]502 10*3/bE945-222AeljirlfpKettering Health MiamisburgPlatelets Large [Presence] in Blood by Light microscopyOrdered By: Brittney Hudson on 12-16-7380Azseoqcsj Large LM Ql (Bld)SlightKettering Health MiamisburgPotassium [Moles/volume] in Serum or PlasmaOrdered By: Brittney Hudson on 49-26-4335Vjjkklkft [Moles/Vol]3.3 mmol/L3.5-5.1FRegency Hospital ToledoRBC Auto (Bld) [#/Vol]Ordered By: Brittney Hudson on 04-76-6691ZRT (Bld) [#/Vol]3.98 10*6/uL 3.90-5.60[facility] MiamisburgRB morphologyOrdered By: Brittney Hudson on 71-23-2798OXG morphology finding Nom (Bld)NormalNormalKnox Community Hospitalerum or plasma anion gap determinationOrdered By: Brittney Hudson on 97-00-7683Hadoa gap [Moles/Vol]15.8 mmol/L6.0-15.0Kn[facility] Hospitalodium [Moles/volume] in Serum or PlasmaOrdered By: Brittney Hudson on 78-11-2060Pghret [Moles/Vol]136 mmol/F717-980TatkogeqoKettering Health MiamisburgUrea nitrogen [Mass/volume] in Serum or PlasmaOrdered By: Brittney Hudson on 86-40-3243Mvix nitrogen [Mass/Vol]23 mg/dL7-25[facility] MiamisburgWBC Auto (Bld) [#/Vol]Ordered By: Brittney Hudson on 00-67-5510JLT (Bld) [#/Vol]32.8 10*3/uL4.1-10.5FRegency Hospital Toledo A1C HEMOGLOBINon 44-60-1244IsU4j (Bld) [Mass fraction]7.7 %TechTurn Other Glucose - FINGER STICKon 91-14-8757Nkimuco [Mass/Vol] 178 mg/dLNoShoefitr Other HbA1c (Bld) [Mass fraction]on 01-44-6420H5T HEMOGLOBIN TechTurn Other C reactive protein [Mass/volume] in Serum or Plasma Ordered By: Michael Ramírez on 92-51-9617LJO [Mass/Vol]8.9 mg/dL0.0-0.5FRegency Hospital ToledoCreatinine [Mass/volume] in Serum or PlasmaOrdered By: Michael Ramírez on 48-00-5185Rdksouefnd [Mass/Vol]0.85 mg/dL0.70-1.30[facility]No Panel InformationOrdered By: Michael Ramírez on [id number] GFR (CKD-EPI)> 60.0 mL/MinKettering Health [facility] Creatinine Clearance (ChemNEast Ohio Regional HospitalC reactive protein [Mass/volume] in Serum or PlasmaOrdered By: Michael Ramírez on [id number] [Mass/Vol]1.6 mg/dL0.0-0.5FRegency Hospital Toledo Creatinine [Mass/volume] in Serum or PlasmaOrdered By: Michael Ramírez on 66-25-3514Klxobcetsa [Mass/Vol]0.85 mg/dL0.70-1.30[facility]burgNo Panel InformationOrdered By: Michael Ramírez on 78-61-0548Fwyzuavbx GFR (CKD-EPI)> 60.0 mL/MinKettering Health MiamisburgPharmacy Creatinine Clearance (ChemNEast [facility] HospitalA1C HEMOGLOBINon 03-20-2023 HbA1c (Bld) [Mass fraction]6.4 %TechTurn Other Glucose - FINGER STICKon 41-55-5242Ukvjbge [Mass/Vol] 179 mg/dLNoShoefitr Other HbA1c (Bld) [Mass fraction]on 84-71-8931P3G HEMOGLOBIN TechTurn Other c reactive protein [Mass/volume] in Serum or Plasma Ordered By: Michael Ramírez on 89-75-9305GNR [Mass/Vol]1.6 mg/dL0.0-0.5FRegency Hospital ToledoCreatinine [Mass/volume] in Serum or PlasmaOrdered By: Michael Ramírez on 66-07-1516Cbwztyeuum [Mass/Vol]1.20 mg/dL0.70-1.30[facility]No Panel InformationOrdered By: Michael Ramírez on 30-90-6024Qwdbqwbxb GFR (CKD-EPI)> 60.0 mL/MinKettering Health [facility]burg Pharmacy Creatinine Clearance (ChemNEast [facility] HospitalC reactive protein [Mass/volume] in Serum or PlasmaOrdered By: Michael Ramírez on 76-42-6015XQS [Mass/Vol]0.8 mg/dL0.0-0.5FRegency Hospital Toledo Creatinine [Mass/volume] in Serum or PlasmaOrdered By: Michael Ramírez on 60-32-7144Agippombjq [Mass/Vol]1.12 mg/dL0.70-1.30[facility]No Panel InformationOrdered By: Michael Ramírez on 04-02-1933Xsvpfjvny GFR (CKD-EPI)> 60.0 mL/MinKettering Health MiamisburgPharmacy Creatinine Clearance ([facility] CenterGlucose Glucometer (BldC) [Mass/Vol]Ordered By: Orestes Mejia on 88-43-1827Digowta [Mass/Vol]185 mg/dL [facility]amisburgComment on above:Random Glucose Reference Range is dependent on time and content of last meal. Glucose of more than 200 mg/dL in a nonstressed, ambulatory subject supports the diagnosis of Diabetes Mellitus.Alanine aminotransferase [Enzymatic activity/volume] in Serum or Plasma Ordered By: Eulogio Ruvalcaba on 16-76-1149OMU [Catalytic activity/Vol]14 U/L7-52 [facility]burgAlbumin [Mass/volume] in Serum or Plasma by Bromocresol green (BCG) dye binding methoOrdered By: Eulogio Ruvalcaba on 51-98-9290Pmtpwzt BCG dye [Mass/Vol]3.2 g/dL3.5-5.7FRegency Hospital ToledoAlkaline phosphatase [Enzymatic activity/volume] in Serum or PlasmaOrdered By: Eulogio Ruvalcaba on 55-98-5247NTI [Catalytic activity/Vol]62 U/L34-104 [facility]amisburgAspartate aminotransferase [Enzymatic activity/volume] in Serum or PlasmaOrdered By: Eulogio Ruvalcaba on 93-34-7032KHQ [Catalytic activity/Vol]17 U/K19-30HpgagovwdKettering Health MiamisburgBasophils Auto (Bld) [#/Vol]Ordered By: Eulogio Ruvalcaba on 10-93-6486Zcvlavjte (Bld) [#/Vol]0.1 10*3/uL0.0-0.2FRegency Hospital ToledoBasophils/100 WBC Auto (Bld)Ordered By: Eulogio Ruvalcaba on 98-40-6388Scqoyvibg/100 WBC (Bld)0.6 %. [facility]burgBilirubin.total [Mass/volume] in Serum or PlasmaOrdered By: Eulogio Ruvalcaba on 36-79-1992Ylpxhejfg [Mass/Vol]0.4 mg/dL 0.3-1.0[facility]burgC reactive protein [Mass/volume] in Serum or PlasmaOrdered By: Michael Ramírez on 84-59-5837YYH [Mass/Vol]1.1 mg/dL 0.0-0.5FRegency Hospital ToledoCalcium [Mass/volume] in Serum or Plasma Ordered By: Eulogio Ruvalcaba on 96-92-0145Sobujqq [Mass/Vol]8.7 mg/dL8.6-10.3 [facility]burgCarbon dioxide, total [Moles/volume] in Serum or PlasmaOrdered By: Eulogio Ruvalcaba on 47-04-8475MP7 [Moles/Vol]31.2 mmol/L 21.0-31.0[facility]burgChloride [Moles/volume] in Serum or PlasmaOrdered By: Eulogio Ruvalcaba on 93-57-4400Qwrsgdne [Moles/Vol]103 mmol/L 98-107[facility]burgCreatinine [Mass/volume] in Serum or PlasmaOrdered By: Eulogio Ruvalcaba on 55-07-1563Pffbvsjenk [Mass/Vol]1.38 mg/dL 0.70-1.30[facility]burgEosinophils Auto (Bld) [#/Vol]Ordered By: Eulogio Ruvalcaba on 94-44-2938Mercxkwjwwg (Bld) [#/Vol]0.4 10*3/uL0.0-0.45 [facility]burgEosinophils/100 WBC Auto (Bld)Ordered By: Eulogio Ruvalcaba on 88-74-4154Uhzmmlmjwhf/100 WBC (Bld)3.4 %.[facility]amisburgErythrocyte distribution width Auto (RBC) [Ratio]Ordered By: Eulogio Ruvalcaba on 55-09-7429Kyxsyoqimcc distribution width (RBC) [Ratio]13.7 % 12.0-14.8[facility]amisburgErythrocyte sedimentation rate by Photometric methodOrdered By: Michael Ramírez on 90-95-8963NZK Photometric method (Bld) [Velocity]48 mm/hr0-19[facility]amisburgGlobulin Calc (S) [Mass/Vol]Ordered By: Eulogio Ruvalcaba on 35-98-8000Ddiukuqa (S) [Mass/Vol]2.5 g/dLKettering Health MiamisburgGlucose [Mass/volume] in Serum or Plasma Ordered By: Eulogio Ruvalcaba on 89-06-7477Edvnzza [Mass/Vol]82 mg/rM48-180 [facility]burgComment on above:ADA recommended reference rangeRandom Glucose Reference Range is dependent on time and content of last meal. Glucose of more than 200 mg/dL in a nonstressed, ambulatory subject supports the diagnosisof Diabetes Mellitus.Hematocrit Auto (Bld) [Volume fraction]Ordered By: Eulogio Ruvalcaba on 92-92-0100Kkztewunpd (Bld) [Volume fraction]30.7 %38.8-50.0[facility]burgHemoglobin [Mass/volume] in BloodOrdered By: Eulogio Ruvalcaba on 05-82-0112Teupsoemsr (Bld) [Mass/Vol]10.4 g/dL13.0-17.0[facility]burgLeukocytes [#/volume] corrected for nucleated erythrocytes in Blood by Automated coun Ordered By: Eulogio Ruvalcaba on 57-63-6880ZYD corrected for nucl RBC Auto (Bld) [#/Vol]12.4 10*3/uL4.1-10.5FRegency Hospital ToledoLymphocytes Auto (Bld) [#/Vol]Ordered By: Eulogio Ruvalcaba on 14-84-8216Yacvfrtwgan (Bld) [#/Vol] 3.1 10*3/uL1.00-4.8[facility]burgLymphocytes/100 WBC Auto (Bld)Ordered By: Eulogio Ruvalcaba on 12-60-9639Fvexfpvhcls/100 WBC (Bld)24.7 %. [facility]amisburgMCH Auto (RBC) [Entitic mass]Ordered By: Eulogio Ruvalcaba on 33-15-9160PSY (RBC) [Entitic mass]30.0 pg27.5-35.2FRegency Hospital ToledoMCHC Auto (RBC) [Mass/Vol]Ordered By: Eulogio Ruvalcaba on 03-66-7346UPPQ (RBC) [Mass/Vol]33.8 g/dL32.5-35.6FRegency Hospital ToledoMCV Auto (RBC) [Entitic vol]Ordered By: Eulogio Ruvalcaba on 03-08-2590JUN (RBC) [Entitic vol]88.7 fL83.5-101[facility]burgMonocytes Auto (Bld) [#/Vol]Ordered By: Eulogio Ruvalcaba on 32-82-7707Ywdsgqjnl (Bld) [#/Vol]1.2 10*3/uL0.0-0.8[facility]burgMonocytes/100 WBC Auto (Bld)Ordered By: Eulogio Ruvalcaba on 14-35-3665Jydhregra/100 WBC (Bld)9.4 %. [facility] MiamisburgNeutrophils Auto (Bld) [#/Vol]Ordered By: Eulogio Ruvalcaba on 32-14-1491Dkppxndtmbm (Bld) [#/Vol]7.7 10*3/uL1.8-7.7 [facility]burgNeutrophils/100 WBC Auto (Bld)Ordered By: Eulogio Ruvalcaba on 89-66-8135Htofpeqlfja/100 WBC (Bld)61.9 %.[facility]No Panel InformationOrdered By: Eulogio Ruvalcaba on 03-03-2023 Estimated GFR (CKD-EPI)54.671 mL/MinKettering Health MiamisburgPharmacy Creatinine Clearance (Chem54.47[facility]burgNucleated erythrocytes [Presence] in Blood by Automated countOrdered By: Eulogio Ruvalcaba on 51-01-5522Qiygcprew RBC Auto Ql (Bld)0.1 /100{WBC}0-0.5FRegency Hospital ToledoPlatelet mean volume Auto (Bld) [Entitic vol]Ordered By: Eulogio Ruvalcaba on 39-37-6352Stfwomsw mean volume (Bld) [Entitic vol]8.5 fL6.6-10.1 [facility]burgPlatelets Auto (Bld) [#/Vol]Ordered By: Eulogio Ruvalcaba on 62-78-5156Nffcjlmdd (Bld) [#/Vol]324 10*3/lT903-275LillrkngqKettering Health MiamisburgPotassium [Moles/volume] in Serum or PlasmaOrdered By: Eulogio Ruvalcaba on 54-91-8717Lpnbpkpdn [Moles/Vol]4.6 mmol/L3.5-5.1FRegency Hospital ToledoProtein [Mass/volume] in Serum or PlasmaOrdered By: Eulogio Ruvalcaba on 00-06-6700Lvqxizr [Mass/Vol]5.7 g/dL6.4-8.9[facility]amisburgRBC Auto (Bld) [#/Vol]Ordered By: Eulogio Ruvalcaba on 03-03-2023 RBC (Bld) [#/Vol]3.46 10*6/uL3.90-5.60[facility] Hospitalerum or plasma albumin/globulin mass ratioOrdered By: Eulogio Ruvalcaba on 03-03-2023 Albumin/Globulin [Mass ratio]1.3 {ratio}[facility] Hospitalerum or plasma anion gap determinationOrdered By: Eulogio Ruvalcaba on 45-57-0214Odqht gap [Moles/Vol]9.4 mmol/L6.0-15.0[facility] Hospitalodium [Moles/volume] in Serum or PlasmaOrdered By: Eulogio Ruvalcaba on 48-22-4947Fqpqqd [Moles/Vol]139 mmol/B443-324AnsfcmufjKettering Health MiamisburgUrea nitrogen [Mass/volume] in Serum or PlasmaOrdered By: Eulogio Ruvalcaba on 02-40-8178Cegf nitrogen [Mass/Vol]23 mg/dL7-25[facility]burgWBC Auto (Bld) [#/Vol]Ordered By: Eulogio Ruvalcaba on 24-20-2341RDI (Bld) [#/Vol]12.4 10*3/uL 4.1-10.5FRegency Hospital ToledoNo Panel InformationOrdered By: Eulogio Ruvalcaba on 15-81-6195Qpfgwsd Glucose CommentGlu2: cleaned meterKettering Health MiamisburgMagnesium [Mass/volume] in Serum or PlasmaOrdered By: Geo Thomas on 67-78-2958Qmylbahjz [Mass/Vol]1.7 mg/dL1.9-2.7FSelect Medical Specialty Hospital - Cincinnati Northerum or plasma trough vancomycin levelOrdered By: Brennan Cerrato on 79-71-6260Rtrqhdefsx trough [Mass/Vol]21.5 ug/mL10.0-20.0[facility]burgComment on above:Last dose: -Vancomycin [Mass/volume] in Serum or PlasmaOrdered By: Brennan Cerrato on 74-65-5693Wpttaavuti [Mass/Vol]14.2 ug/mL5.0-20.0[facility]amisburgComment on above:Last dose: - Activated partial thromboplastin time (aPTT) in platelet poor plasma by coagulation aOrdered By: Geo Thomas on 85-09-3087hUKD Coag (PPP) [Time]31.6 s25.1-36.5FRegency Hospital ToledoComment on above:A hematocrit value greater than 55% may lead to inaccurate results in coagulation testing. Patientshaving hematocrit values >55% require a special collection tube for coagulation studies. Please contact the laboratory at [phone] for redraw instructions.Anaerobic cultureOrdered By: Rohan Han on 02-26-2023 Bacteria identified Anaer cx Nom (Unsp spec)No Anaerobes Isolated 3 Days [facility]burgBacteria identified Anaer cx Nom (Unsp spec)No Anaerobes Isolated 3 DaysKettering Health MiamisburgBacteria identified Aer cx Nom (Unsp spec)Ordered By: Rohan Han on 61-88-0426Nrtlksn Culture Pseudomonas aeruginosa (MDRO)[facility]amisburgAerobic Culture Pseudomonas aeruginosa (MDRO)[facility]burgCholesterol [Mass/volume] in Serum or PlasmaOrdered By: Geo Thomas on 02-26-2023 Cholesterol [Mass/Vol]92 mg/xJ691-605BajpnikqtKettering Health MiamisburgComment on above:Chol less than 200 mg/dl low riskChol 201-239 mg/dl borderline riskChol 240 mg/dl and greater high riskCholesterol in LDL Calc [Mass/Vol]Ordered By: Geo Thomas on 83-56-0006Jcxxymjdxws in LDL [Mass/Vol]39 mg/dL0-100 [facility]burgComment on above:LDL ATP III CLASSIFICATIONLDL less than 100 mg/dL OptimalLDL 100-129 mg/dL Near or above fjikdqtZAI966-910 mg/dL Borderline highLDL 160-189 mg/dL HighLDL greater than 189 mg/dL Very high Cholesterol in VLDL Calc [Mass/Vol]Ordered By: Geo Thomas on 17-00-3090Mqpxllpsjvs in VLDL [Mass/Vol]29 mg/dLKettering Health MiamisburgGlucose mean value [Mass/volume] in Blood Estimated from glycated hemoglobinOrdered By: Geo Thomas on 47-35-0448Bkirqro glucose Estimated from glycated hemoglobin (Bld) [Mass/Vol]160 mg/dLKettering Health MiamisburgGram stain for investigation of transfusion reactionOrdered By: Rohan Han on 32-47-0721Tuwhvovvueh observation Gram stain Nom (Unsp spec) [facility]amisburgMicroscopic observation Gram stain Nom (Unsp spec)[facility]burgHemoglobin A1c percentageOrdered By: Geo Thomas on 29-99-7476WlA7w (Bld) [Mass fraction]7.2 %4.3-5.6 [facility]amisburgComment on above:Increased risk for diabetes: 5.7 - 6.4diabetes: >6.4glycemic control for adults with diabetes: <7.0INR in Platelet poor plasma by Coagulation assayOrdered By: Geo Thomas on 09-85-2538VRB Coag (PPP) [Relative time]1.0 {INR}[facility]burgComment on above:INR Therapeutic Range A) Pre- and Peroperative OAT started two weeks before surgery. NOT HIP SURGERY: 1.5 - 2.5 HIP SURGERY: 2 - 3B) Primary and secondary prevention of venous THROMBOSIS: 2 - 3C) Active venous thrombosis, pulmonary embolismand prevention of recurrent venous thrombosis: 2 - 3D) Prevention of arterial thromboembolismincluding patients with mechanical heart valves: 3 - 4.5Prealbumin [Mass/volume] in Serum or PlasmaOrdered By: Geo Thomas on 77-08-4895Bflbddyjbk [Mass/Vol]15.7 mg/dL17.0-34.0 [facility]amisburgProthrombin time (PT)Ordered By: Geo Thomas on 11-45-2273IM Coag (PPP) [Time]12.3 s9.0-12.9[facility]burgComment on above:A hematocrit value greater than 55% may lead to inaccurate results in coagulation testing. Patientshaving hematocrit values >55% require a special collection tube for coagulation studies. Please contact the laboratory at [phone] for redraw instructions.Serum or plasma high density lipoprotein (HDL) cholesterol measurementOrdered By: Geo Thomas on 26-27-9105Xdekgkcwayo in HDL [Mass/Vol]23 mg/sG86-83WmfhlguinKettering Health MiamisburgComment on above:HDL CHOL ATP-III CLASSIFICATION Cardiovascular RiskHDL > or equal to 60 mg/dL LOWHDL < 40 mg/dL HIGHSerum or plasma total cholesterol/high density lipoprotein (HDL) cholesterol mass ratOrdered By: Geo Thomas on 99-24-9149Xofxwpoppkw.total/Cholesterol in HDL [Mass ratio]4.0 {ratio}<5.0[facility]amisburgTriglyceride [Mass/volume] in Serum or PlasmaOrdered By: Geo Thomas on 47-31-7635Bsxaixagnixq [Mass/Vol]149 mg/dL0-149[facility]burgComment on above:TRIG ATP III CLASSIFICATIONTRIG less than 150 mg/dL NormalTRIG 150-199 mg/dL Borderline highTRIG 200-500 mg/dL High TRIG greater than 500 mg/dL Very highStandard traceable to the Center for Disease Conrtrol and Prevention (CDC) test method.Vancomycin [Mass/volume] in Serum or Plasma --peakOrdered By: Brennan Cerrato on 78-37-2404Hzotnpjlzf peak [Mass/Vol]40.5 ug/mL20.0-40.0[facility]amisburgComment on above:Last dose: -Alanine aminotransferase [Enzymatic activity/volume] in Serum or PlasmaOrdered By: Rico Carr on 70-60-4912ZVX [Catalytic activity/Vol]31 U/L7-52[facility]amisburgAlbumin [Mass/volume] in Serum or Plasma by Bromocresol green (BCG) dye binding methoOrdered By: Rico Carr on 68-21-9307Hmmuckx BCG dye [Mass/Vol]3.6 g/dL3.5-5.7FRegency Hospital ToledoAlkaline phosphatase [Enzymatic activity/volume] in Serum or PlasmaOrdered By: Rico Carr on 16-96-8983FDE [Catalytic activity/Vol]94 U/A11-924JivypklfnKettering Health MiamisburgAspartate aminotransferase [Enzymatic activity/volume] in Serum or PlasmaOrdered By: Rico Carr on 07-69-7161PLS [Catalytic activity/Vol]16 U/K54-31ApwzvkmnaKettering Health MiamisburgBacterial blood cultureOrdered By: Rico Carr on 02-23-2023 Bacteria identified Cx Nom (Bld)NO GROWTH 5 DAYSKettering Health MiamisburgBacteria identified Cx Nom (Bld)NO GROWTH 5 DAYSKettering Health MiamisburgBasophils Auto (Bld) [#/Vol]Ordered By: Rico Carr on 19-68-0126Xjuyzxxxc (Bld) [#/Vol]0.1 10*3/uL0.0-0.2FRegency Hospital ToledoBasophils/100 WBC Auto (Bld)Ordered By: Rico Carr on 03-69-7975Kpoenlolr/100 WBC (Bld)0.6 %. [facility]burgBilirubin.total [Mass/volume] in Serum or PlasmaOrdered By: Rico Carr on 41-79-7971Bcnvbijxi [Mass/Vol]0.9 mg/dL0.3-1.0 [facility]burgCalcium [Mass/volume] in Serum or PlasmaOrdered By: Rico Carr on 46-88-9838Elpzytm [Mass/Vol]8.7 mg/dL8.6-10.3FRegency Hospital ToledoCarbon dioxide, total [Moles/volume] in Serum or Plasma Ordered By: Rico Carr on 95-41-0522UO8 [Moles/Vol]25.0 mmol/L21.0-31.0 [facility]burgChloride [Moles/volume] in Serum or Plasma Ordered By: Rico Carr on 37-75-1842Ufgsrkoz [Moles/Vol]101 mmol/L98-107 [facility]burgCreatinine [Mass/volume] in Serum or Plasma Ordered By: Rico Carr on 69-41-8644Fvliyycxtx [Mass/Vol]0.74 mg/dL0.70-1.30 [facility]burgEosinophils Auto (Bld) [#/Vol]Ordered By: Rico Carr on 81-27-7382Zyqemqsybwa (Bld) [#/Vol]0.1 10*3/uL0.0-0.45[facility]burgEosinophils/100 WBC Auto (Bld)Ordered By: Rico Carr on 53-01-7425Gsbjwqxwtje/100 WBC (Bld)1.1 %.[facility] Erythrocyte distribution width Auto (RBC) [Ratio]Ordered By: Rico Carr on 10-89-3513Rivqehcsyip distribution width (RBC) [Ratio]14.0 %12.0-14.8[facility]amisburgGlobulin Calc (S) [Mass/Vol]Ordered By: Rico Carr on 82-27-3143Ojxdokun (S) [Mass/Vol]3.4 g/dLKettering Health Miamisburg Glucose [Mass/volume] in Serum or PlasmaOrdered By: Rico Carr on 02-23-2023 Glucose [Mass/Vol]188 mg/cK16-982KdmbjympzKettering Health MiamisburgComment on above:ADA recommended reference rangeRandom Glucose Reference Range is dependent on time and content of last meal. Glucose of more than 200 mg/dL in a nonstressed, ambulatory subject supports the diagnosisof Diabetes Mellitus. Hematocrit Auto (Bld) [Volume fraction]Ordered By: Rico Carr on 02-23-2023 Hematocrit (Bld) [Volume fraction]40.6 %38.8-50.0[facility]burgHemoglobin [Mass/volume] in BloodOrdered By: Rico Carr on 02-23-2023 Hemoglobin (Bld) [Mass/Vol]13.8 g/dL13.0-17.0[facility] Lactate [Moles/volume] in Serum or PlasmaOrdered By: Rico Carr on 02-23-2023 Lactate [Moles/Vol]1.9 mmol/L0.5-2.2FRegency Hospital ToledoLactate [Moles/Vol]2.4 mmol/L0.5-2.2FRegency Hospital ToledoComment on above: Critical Result : Called to and read back by: NIKKI HOPE/MUSHTAQ at: 02/23/2023 12:53:26 by:[id number] [#/volume] corrected for nucleated erythrocytes in Blood by Automated counOrdered By: Rico Carr on 72-74-5078DYJ corrected for nucl RBC Auto (Bld) [#/Vol]13.0 10*3/uL4.1-10.5FRegency Hospital Toledo Lymphocytes Auto (Bld) [#/Vol]Ordered By: Rico Carr on 42-01-6146Pbmgvrpspmv (Bld) [#/Vol]2.4 10*3/uL1.00-4.8[facility]amisburgLymphocytes/100 WBC Auto (Bld)Ordered By: Rico Carr on 87-61-9926Tchqsoqaupv/100 WBC (Bld) 18.7 %.UC HealthH Auto (RBC) [Entitic mass]Ordered By: Rico Carr on 48-29-4358STX (RBC) [Entitic mass]30.0 pg27.5-35.2FRegency Hospital ToledoMCHC Auto (RBC) [Mass/Vol]Ordered By: Rico Carr on 70-35-5996IZRW (RBC) [Mass/Vol]34.1 g/dL32.5-35.6FRegency Hospital ToledoMCV Auto (RBC) [Entitic vol]Ordered By: Rico Carr on 28-92-4636CMU (RBC) [Entitic vol]88.1 fL83.5-101[facility]amisburgMonocyte distribution width [Entitic volume] in Blood by AutomatedOrdered By: Rico Carr on 10-05-2564Aygnrsmh distribution width Auto (Bld) [Entitic vol]18.95 % 0.00-20.00[facility]amisburgMonocytes Auto (Bld) [#/Vol]Ordered By: Rico Carr on 80-53-5893Nexsubyai (Bld) [#/Vol]1.3 10*3/uL0.0-0.8[facility]amisburgMonocytes/100 WBC Auto (Bld)Ordered By: Rico Carr on 86-69-7321Srsalswce/100 WBC (Bld)10.0 %.[facility] Neutrophils Auto (Bld) [#/Vol]Ordered By: Rico Carr on 36-03-8329Otaacelxqlc (Bld) [#/Vol]9.0 10*3/uL1.8-7.7FRegency Hospital ToledoNeutrophils/100 WBC Auto (Bld)Ordered By: Rico Carr on 46-92-8443Rjxggbymlyl/100 WBC (Bld)69.6 %.[facility]burgNo Panel InformationOrdered By: Rico Carr on 45-60-3206Vesujsctm GFR (CKD-EPI)> 60.0 mL/MinKettering Health MiamisburgPharmacy Creatinine Clearance (Chem97.63[facility] Nucleated erythrocytes [Presence] in Blood by Automated countOrdered By: Rico Carr on 19-36-1497Axdelfuny RBC Auto Ql (Bld)0.1 /100{WBC}0-0.5FRegency Hospital ToledoPlatelet mean volume Auto (Bld) [Entitic vol]Ordered By: Rico Carr on 51-71-9908Taqrxrad mean volume (Bld) [Entitic vol]8.6 fL6.6-10.1 [facility] MiamisburgPlatelets Auto (Bld) [#/Vol]Ordered By: Rico Carr on 47-90-4733Iwvpkyolh (Bld) [#/Vol]363 10*3/jJ118-845OptmhswkqKettering Health MiamisburgPotassium [Moles/volume] in Serum or PlasmaOrdered By: Rico Carr on 87-71-1411Leqhrnmhb [Moles/Vol]3.8 mmol/L3.5-5.1FRegency Hospital ToledoProtein [Mass/volume] in Serum or PlasmaOrdered By: Rico Carr on 22-97-1145Qzelzop [Mass/Vol]7.0 g/dL6.4-8.9[facility] MiamisburgRBC Auto (Bld) [#/Vol]Ordered By: Rico Carr on 24-99-4900HIB (Bld) [#/Vol]4.61 10*6/uL3.90-5.60[facility] Hospitalerum or plasma albumin/globulin mass ratioOrdered By: Rico Carr on 14-47-5557Btnqgqs/Globulin [Mass ratio]1.1 {ratio}[facility] Hospitalerum or plasma anion gap determinationOrdered By: Rico Carr on 72-63-9063Axprg gap [Moles/Vol]10.8 mmol/L6.0-15.0[facility] Hospitalodium [Moles/volume] in Serum or PlasmaOrdered By: Rico Carr on 68-89-5664Hnyrat [Moles/Vol]133 mmol/B292-465 [facility] MiamisburgUrea nitrogen [Mass/volume] in Serum or Plasma Ordered By: Rico Carr on 41-77-5020Zphs nitrogen [Mass/Vol]13 mg/dL7- [facility] MiamisburgWBC Auto (Bld) [#/Vol]Ordered By: Rico Carr on 45-41-5009JJR (Bld) [#/Vol]13.0 10*3/uL4.1-10.5FRegency Hospital ToledoCreatinine [Mass/volume] in Serum or PlasmaOrdered By: Dhruv Bautista on 75-13-8930Jlcnrbosux [Mass/Vol]0.74 mg/dL0.70-1.30[facility]burgNo Panel InformationOrdered By: Dhruv Bautista on 17-52-4093Ghwueqxhd GFR (CKD-EPI)> 60.0 mL/MinKettering Health MiamisburgPharmacy Creatinine Clearance (Chem97.20[facility] MiamisburgUrea nitrogen [Mass/volume] in Serum or PlasmaOrdered By: Dhruv Bautista on 96-41-7509Cpdq nitrogen [Mass/Vol]10 mg/dL7[facility] MiamisburgA1C HEMOGLOBINon 44-53-7338GhR2r (Bld) [Mass fraction]9.0 %[employer] Other Creatinine [Mass/volume] in UrineOrdered By: Louise Sotelo on 40-50-4400Rgbnhmidhz (U) [Mass/Vol]155.9 mg/dLKettering Health MiamisburgComment on above:No reference range establishedGlucose - FINGER STICKon 56-85-7694Wqnlgpk [Mass/Vol]162 mg/dLNortKumu Networks Other HbA1c (Bld) [Mass fraction]on 80-38-3675E6J HEMOGLOBIN [employer] Other microalbumin [Mass/volume] in UrineOrdered By: Louise Sotelo on 58-92-0272Iifspja DL <= 20 mg/L (U) [Mass/Vol]3.5 mg/dL0.0-1.8[facility] MiamisburgUrine microalbumin/creatinine mass ratioOrdered By: Louise Sotelo on 37-56-7440Rxpiftt/Creatinine DL <= 20 mg/L (U) [Mass ratio]22.0 mg/g0.0-30.0[facility] MiamisburgComment on above:30-300 mg/g indicates an increased risk for diabetic nephropathy. Greater than 300 mg/g is consistent with clinical nephropathy. (Am. J. Kidney Disease 1995, 25:107)POINT OF CARE GLUCOSEon 77-55-3424Eaeonmd [Mass/Vol]156 mg/dLCritically aobo96-550QudUc Medical CenterComment on above:Performed By: #### POCGLUC #### [facility] [address] [place] [address] Dr. Daniel SosaA1C HEMOGLOBINon 25-73-2282AwS6d (Bld) [Mass fraction]8.5 %[employer] Other Glucose - FINGER STICKon 38-79-5490Spoglna [Mass/Vol] 211 mg/dLNoShoefitr Other HbA1c (Bld) [Mass fraction]on 85-52-3198C2Z HEMOGLOBIN [employer] Other A1C HEMOGLOBINon 03-21-5560NaY7y (Bld) [Mass fraction] 11 %[employer] Other Glucose - FINGER STICKon 91-10-8537Ogzljdt [Mass/Vol] 266 mg/dLNoShoefitr Other HbA1c (Bld) [Mass fraction]on 33-53-2975T1O HEMOGLOBIN [employer] Other Glucose - FINGER STICKon 63-32-3544Gdidarb [Mass/Vol] 271 mg/dLNoShoefitr Other A1C HEMOGLOBINon 41-87-4122SiF8e (Bld) [Mass fraction] 11.4 %[employer] Other Glucose - FINGER STICKon 29-29-6977Notouzy [Mass/Vol] 282 mg/dLNortUpper [facility] Definiens Other HbA1c (Bld) [Mass fraction]on 83-82-7017Z4J HEMOGLOBIN [facility] Definiens Other Albumin [Mass/volume] in Serum or Plasmaon 12-29-2019 Albumin [Mass/Vol]3.8 g/dL3.2-5.5FRegency Hospital ToledoAlkaline phosphatase [Enzymatic activity/volume] in Serum or Plasmaon 54-44-0801BJH [Catalytic activity/Vol]87 U/Z38-23BqfvomzfoKettering Health MiamisburgAspartate aminotransferase [Enzymatic activity/volume] in Serum or Plasmaon 31-14-8466PGG [Catalytic activity/Vol]20 U/R20-47KoebzwkfgKettering Health [place]amisburg Bilirubin.total [Mass/volume] in Serum or Plasmaon 99-07-6639Wvovdswfg [Mass/Vol]0.6 mg/dL0.3-1.2FRegency Hospital ToledoCalcium [Mass/volume] in Serum or Plasmaon 31-32-0980Xldvwlz [Mass/Vol]9.5 mg/dL8.2-10.2FRegency Hospital ToledoCarbon dioxide, total [Moles/volume] in Serum or Plasmaon 00-75-0920SS9 [Moles/Vol]23.8 mmol/L22.0-30.0[facility] Chloride [Moles/volume] in Serum or Plasmaon 97-66-9294Fthddxnf [Moles/Vol]95 mmol/V62-348KfctmchwzKettering Health MiamisburgCholesterol [Mass/volume] in Serum or Plasmaon 05-30-6931Tcpsgnmwdhe [Mass/Vol]235 mg/iM371-401DodtotxjpKettering Health MiamisburgComment on above:Chol less than 200 mg/dl low riskChol 201-239 mg/dl borderline riskChol 240 mg/dl and greater high riskCholesterol in LDL Calc [Mass/Vol]on 88-27-0757Rscptdoaoks in LDL [Mass/Vol]TNPKettering Health MiamisburgComment on above:Test not performedCholesterol in LDL [Mass/volume] in Serum or Plasmaon 87-56-0393Oczrnufkgoy in LDL [Mass/Vol]126 mg/dL0-100[facility]amisburgComment on above:LDL ATP III CLASSIFICATIONLDL less than 100 mg/dL OptimalLDL 100-129 mg/dL Near or above kpmforjCWP190-882 mg/dL Borderline highLDL 160-189 mg/dL HighLDL greater than 189 mg/dL Very highCholesterol in VLDL Calc [Mass/Vol]on 01-62-2383Iipjzfexpbr in VLDL [Mass/Vol]TNPKettering Health MiamisburgComment on above:Test not performedCreatinine and Glomerular filtration rate.predicted panel (S/P/Bld)on 83-27-9007Hyjiteievx [Mass/Vol]0.72 mg/dL0.64-1.27[facility] MiamisburgEstimated glomerular filtration rate (GFR) non- Americanon 36-88-1567OZO/1.73 sq M.predicted among non-blacks MDRD (S/P/Bld) [Vol rate/Area]mL/min/{1.73_m2}[facility] MiamisburgGlobulin Calc (S) [Mass/Vol]on 86-88-5736Oprdfmtq (S) [Mass/Vol]3.1 g/dLKettering Health MiamisburgGlucose [Mass/volume] in Serum or Plasmaon 16-51-7208Hqyenfr [Mass/Vol] 213 mg/sL23-035HpzscwubxKettering Health MiamisburgComment on above:ADA recommended reference rangeRandom Glucose Reference Range is dependent on time and content of last meal. Glucose of more than 200 mg/dL in a nonstressed, ambulatory subject supports the diagnosisof Diabetes Mellitus.Laboratory - Chemistry and Chemistry - challengeon 98-45-9681QCK/1.73 sq M.predicted MDRD (S/P/Bld) [Vol rate/Area]mL/min/{1.73_m2}[facility] MiamisburgComment on above:GFR estimated reference range: According to KDOQI guidelines, <60 ml/min/1.73m2 is sufficient todiagnose a patient with chronic kidney disease.No Panel Information on 36-75-966989240422-Wccgsse Vitamin D Total21.4 ng/zQ37-926BpeqqkwucKettering Health MiamisburgComment on above:VITAMIN D STATUS 25(OH)VITAMIN D RANGE (ng/mL) Deficient <20 Insufficient 20 to <70Fcvoqqzchj16 to 100Reference: Kayla MAYA,Lily NC, Florence AVELAR, et al. Evaluation,treatment, and prevention of vitamin D deficiency; an Endocrine Society clinical practice guideline. JCEM. 2010; 96(4):1911-30.Pharmacy Creatinine Clearance (ChemN/[facility]> 60[facility]21.4 ng/oI65-434GdndtdnbiKettering Health MiamisburgN/[facility] HospitalPotassium [Moles/volume] in Serum or Plasmaon 09-55-7489Tnsshcsab [Moles/Vol]3.9 mmol/L 3.5-5.1FRegency Hospital ToledoProtein [Mass/volume] in Serum or Plasma on 06-20-0694Agkoupd [Mass/Vol]6.9 g/dL6.1-7.9[facility] Serum or plasma alanine aminotransferase measurement without P-5'-P (enzymatic activion 86-57-2633TMS No additional P-5'-P [Catalytic activity/Vol]15 U/L10-60 [facility] Hospitalerum or plasma albumin/globulin mass ratioon 66-08-5825Wdldcjd/Globulin [Mass ratio]1.2 {ratio}[facility] Hospitalerum or plasma creatinine measurement with calculation of estimated glomerular filtron 69-46-0022Lidirevinf and Glomerular filtration rate.predicted panel (S/P/Bld)0.72 mg/dL0.64-1.27[facility] Hospitalerum or plasma high density lipoprotein (HDL) cholesterol measurementon 12-29-2019 Cholesterol in HDL [Mass/Vol]36 mg/mB51-62LhotjqnqlKettering Health Miamisburg Comment on above:HDL CHOL ATP-III CLASSIFICATION Cardiovascular RiskHDL > or equal to 60 mg/dL LOWHDL < 40 mg/dL HIGHSerum or plasma total cholesterol/high density lipoprotein (HDL) cholesterol mass amy 12-29-2019 Cholesterol.total/Cholesterol in HDL [Mass ratio]6.5 {ratio}<5.0[facility] Hospitalodium [Moles/volume] in Serum or Plasmaon 12-29-2019 Sodium [Moles/Vol]132 mmol/P482-051MpzsdsnebKettering Health MiamisburgTriglyceride [Mass/volume] in Serum or Plasmaon 44-57-8022Nbjpfyvjfdaq [Mass/Vol]449 mg/dL 35-149[facility] MiamisburgComment on above:If the triglyceride result is greater than 400, LDLC and related calculations cannot be calculated a nd resulted.TRIG ATP III CLASSIFICATIONTRIG less than 150 mg/dL NormalTRIG 150- 199 mg/dL BorderlinehighTRIG 200-500 mg/dL High TRIG greater than 500 mg/dL Very highStandard traceable to the Center for Disease Conrtrol and Prevention (CDC) test method.Urea nitrogen [Mass/volume] in Serum or Plasmaon 86-52-4171Mdiy nitrogen [Mass/Vol]9 mg/dL02-15[facility] Vital Signs Date TimeVital SignValuePerforming BshsbweyvQoyudsrc40-36-2909 15:14-0500Body rzowgk106.72 cmTejas Stevens MD Work Phone: [phone] [place], [place] 1211811-04-2025 15:14-0500 Body mass index (BMI) [Ratio]26.9 kg/m2Tejas Stevens MD Work Phone: [facility]11-04-2025 15:14-0500 Body sjkjcbhwcix03.3 [degF]Tejas Stevens MD Work Phone: [facility]11-04-2025 15:14-0500 Body vdjegb10.28 kgTejas Stevens MD Work Phone: [facility]11-04-2025 15:14-0500 Diastolic blood mm[Hg]Tejas Stevens MD Work Phone: [facility]11-04-2025 15:14-0500 Heart rate74 /minTejas Stevens MD Work Phone: [facility]11-04-2025 15:14-0500 Respiratory rate18 /minTejas Stevens MD Work Phone: 1([phone]-[facility]11-04-2025 15:14-0500 SaO2% (BldA) [Mass fraction]98 %Tejas Stevens MD Work Phone: 1([phone])547-[address] [place], [place] 1211811-04-2025 15:14-0500 Systolic blood ivbibwkm106 mm[Hg]Tejas Stevens MD Work Phone: 1([phone])[address]10-17-2025 16:38-0400 Body .72 cmTejas Stevens MD Work Phone: [phone])[address]10-17-2025 16:38-0400 Body xoyiyxrdsss11 [degF]Tejas Stevens MD Work Phone: 1(871)[address] [place], [place] 3904010-17-2025 16:38-0400 Body mgvxxe22 kgTejas Stevens MD Work Phone: [phone])[address] [place], [place] 3904010-17-2025 16:38-0400 Diastolic blood uuxwvmob01 mm[Hg]Tejas Stevens MD Work Phone: 1(076)[address] [place], [place] 3904010-17-2025 16:38-0400 Heart rate71 /minTejas Stevens MD Work Phone: 1(417)[address] [place], [place] 3904010-17-2025 16:38-0400 Respiratory rate18 /minTejas Stevens MD Work Phone: [phone])[address]10-17-2025 16:38-0400 SaO2% (BldA) [Mass fraction]98 %Tejas Stevens MD Work Phone: [phone])[address]10-17-2025 16:38-0400 Systolic blood qycvaopw149 mm[Hg]Tejas Stevens MD Work Phone: [phone])[address]58 [address]09-18-2025 15:24-0400 Body .7 cmRohan Han DPM Work Phone: [facility] CenterRewsigmhue62-48-9637 15:24-0400Body mass index (BMI) [Ratio]27.98 kg/x5RemclbytRohan Han DPM Work Phone: [facility] CenterIwplnxyvma19-77-8985 15:24-0400Body .46 kgRohan Han DPM Work Phone: [facility] CenterDxsenjyygu58-69-3683 15:24-0400Respiratory rate16 /minRohan Han DPM Work Phone: [facility] CenterZztmdbnxyf67-00-0493 13:16-0400Body yomzir916.72 cmTejas Stevens MD Work Phone: [phone])[address]09-09-2025 13:16-0400 Body mass index (BMI) [Ratio]27 kg/m2Tejas Stevens MD Work Phone: [phone])[address]09-09-2025 13:16-0400 Body mqpjxnyhuzw99.1 [degF]Tejas Stevens MD Work Phone: 1(480)[address] [place], [place] 3904009-09-2025 13:16-0400 Body rlkbeq34.73 kgTejas Stevens MD Work Phone: 1(791)[address] [place], [place] 3904009-09-2025 13:16-0400 Diastolic blood ojhnxkwq84 mm[Hg]Tejas Stevens MD Work Phone: 1(281)[address] [place], [place] 3904009-09-2025 13:16-0400 Heart rate75 /minTejas Stevens MD Work Phone: 1(238)[address] [place], [place] 3904009-09-2025 13:16-0400 Respiratory rate22 /minTejas Stevens MD Work Phone: [phone])[address] [place], [place] 3904009-09-2025 13:16-0400 Systolic blood juhnsnpj740 mm[Hg]Tejas Stevens MD Work Phone: 1(340)[address] [place], [place] 3904008-27-2025 15:18-0400 Body jfyzjt259.72 cmTejas Stevens MD Work Phone: [phone])[address] [place], [place] 3904008-27-2025 15:18-0400 Body mass index (BMI) [Ratio]26.7 kg/m2Tejas Stevens MD Work Phone: 1(484)[address] [place], [place] 3904008-27-2025 15:18-0400 Body ijxteduqkkr06.6 [degF]Tejas Stevens MD Work Phone: [phone])[address]08-27-2025 15:18-0400 Body xujkox42.83 kgTejas Stevens MD Work Phone: 1(054)79358 [address]08-27-2025 15:18-0400 Diastolic blood zlzmlqqo62 mm[Hg]Tejas Stevens MD Work Phone: 1(540)[address]58 [address]08-27-2025 15:18-0400 Heart rate90 /minTejas Stevens MD Work Phone: [phone] [place], [place] 1844708-27-2025 15:18-0400 Respiratory rate18 /minTejas Stevens MD Work Phone: [phone])[address] [place], [place] 1844708-27-2025 15:18-0400 SaO2% (BldA) [Mass fraction]97 %Tejas Stevens MD Work Phone: [phone])[address]08-27-2025 15:18-0400 Systolic blood mm[Hg]Tejas Stevens MD Work Phone: 1(820)45358 [address]08-21-2025 15:42-0400 Body ukayob470.72 cmTejas Stevens MD Work Phone: 1([phone])99158 [address]08-21-2025 15:42-0400 Body mass index (BMI) [Ratio]27.8 kg/m2Tejas Stevens MD Work Phone: 1([phone])[address]08-21-2025 15:42-0400 Body .2 kgTejas Stevens MD Work Phone: 1(345)[address]58 [address]08-21-2025 15:42-0400 Diastolic blood qemmutbi48 mm[Hg]Tejas Stevens MD Work Phone: 1([phone])[address]08-21-2025 15:42-0400 Heart rate61 /minTejas Stevens MD Work Phone: [facility]08-21-2025 15:42-0400 Respiratory rate18 /minTejas Stevens MD Work Phone: 1(925)[address]08-21-2025 15:42-0400 SaO2% (BldA) [Mass fraction]100 %Tejas Stevens MD Work Phone: 1(558)[address]375[address] [place], [place] 7821708-21-2025 15:42-0400 Systolic blood bplameuw576 mm[Hg]Tejas Stevens MD Work Phone: 1(730)07569[address] [place], [place] 7821708-12-2025 16:12-0400 Body yqlris022.7 Jonn Medrano MD Work Phone: 1([phone] [place], [place] 4888008-12-2025 16:12-0400Body mass index (BMI) [Ratio]27.83 kg/m2Licha Medrano MD Work Phone: 1(315)771-[address] [place], [place] 4888008-12-2025 16:12-0400Body .01 kgLicha Medrano MD Work Phone: 1(729)202-[facility]08-12-2025 16:12-0400Diastolic blood itkkttbl62 mm[Hg]Licha Medrano MD Work Phone: 1(143)948-[facility]08-12-2025 16:12-0400Heart rate 63 /Ирина Medrano MD Work Phone: 1(200)609-[facility]08-12-2025 16:12-0400Systolic blood avzwpmzk618 mm[Hg]Licha Medrano MD Work Phone: 1(605)900-[facility]07-22-2025 15:53-0400Body .7 cmTejas Stevens MD Work Phone: [facility] CenterRzrofeodbr71-95-4489 15:53-0400Body mass index (BMI) [Ratio]27.98 kg/m2Tejas Stevens MD Work Phone: [facility] CenterEbtxtrqjpo31-31-4711 15:53-0400Body temperature 97.81 [degF]Tejas Stevens MD Work Phone: [facility] CenterSfesdtxdic96-41-4144 15:53-0400Body rceiqr96.46 kgTejas Stevens MD Work Phone: [facility] CenterManuelridg90-26-6690 15:53-0400Diastolic blood qoclnlvj12 mm[Hg]Tejas Stevens MD Work Phone: [facility] CenterVbqfkmiaey34-02-0625 15:53-0400Heart rate73 /min Tejas Stevens MD Work Phone: [facility] CenterPtsfdqfslo05-69-9554 15:53-0400Respiratory rate20 /minTejas Stevens MD Work Phone: [facility] CenterJokjrskxqv65-30-2522 15:53-1702AvF4% (BldA) [Mass fraction]92 %Tejas Stevens MD Work Phone: [facility] CenterAxyfyvsqnp31-37-5748 15:53-0400Systolic blood shwxqsej229 mm[Hg]Tejas Stevens MD Work Phone: [facility] CenterOayphvbqvl00-08-3036 15:55-0400Body nhnaza503.7 cmRohan Han DPM Work Phone: [facility] CenterAtpyomwuwk32-57-0726 15:55-0400Body mass index (BMI) [Ratio]28.28 kg/h6XoyfttcfRohan Han DPM Work Phone: [facility] CenterXsjmocrwne95-79-0145 15:55-0400Body tysfut74.37 kgRohan Han DPM Work Phone: [facility] CenterGlutkcfkma80-49-3014 15:55-0400Respiratory rate16 /minRohan Han DPM Work Phone: [facility] CenterAydbguzoqa15-40-1018 13:13-0400Body temperature 98.2 [degF][facility]05-06-2025 13:13-0400Diastolic blood nvxyvxbw70 mm[Hg][facility]05-06-2025 13:13-0400Heart rate73 /[facility]05-06-2025 13:13-0400Respiratory rate16 /[facility]05-06-2025 13:13-0044IoB3% (BldA) [Mass fraction]93 %[facility]05-06-2025 13:13-0400 Systolic blood mm[Hg][facility]04-08-2025 15:25-0400Body kqbvun148.72 cmK[facility]04-08-2025 15:25-0400Body mass index (BMI) [Ratio]28.6 kg/s9MtzjnrbpdKettering Health Miamisburg04-08-2025 15:25-0400Body orolnh99.44 kgK[facility] 08-31-2024 15:25-0400Diastolic blood wzfzjmaa73 mm[Hg][facility]04-08-2025 15:25-0400Heart rate88 /[facility] 08-31-2024 15:25-0400Respiratory rate16 /[facility] 08-31-2024 15:25-5549QvV4% (BldA) [Mass fraction]98 %[facility]04-08-2025 15:25-0400Systolic blood whkzlfyu930 mm[Hg][facility]03-06-2025 14:41-0500Body itkvbu604.72 cmK[facility]03-06-2025 14:41-0500Body mass index (BMI) [Ratio]28.6 kg/m2 [facility]03-06-2025 14:41-0500Body vsbhus29.4 kg [facility]03-06-2025 14:41-0500Diastolic blood qtcokcym18 mm[Hg][facility]03-06-2025 14:41-0500Heart rate65 /min [facility]03-06-2025 14:41-0500Respiratory rate18 /min [facility]03-06-2025 14:41-7927IuO4% (BldA) [Mass fraction]97 %[facility]03-06-2025 14:41-0500Systolic blood zneqpijr070 mm[Hg][facility]02-27-2025 16:39-0500 Body .7 cmRohan Han DPM Work Phone: [facility] CenterEfaunbdcfm51-39-7884 16:39-0500Body mass index (BMI) [Ratio]30.87 kg/a7UulrwuqhRohan Han DPM Work Phone: [facility] CenterQbgqrstbbh82-09-8717 16:39-0500Body ptehsa02.08 kgRohan Han DPM Work Phone: [facility] CenterUmjeodppyz78-24-5103 16:39-0500Respiratory rate18 /Marito Han DPM Work Phone: [facility] CenterQttneyfczq79-57-2009 14:10-0500Body vlufku152.72 cmK[facility]01-15-2025 14:10-0500Body mass index (BMI) [Ratio]29.6 kg/e1BmpjeotoqKettering Health Miamisburg01-15-2025 14:10-0500Body ajvqpsnvlzo11 [degF][facility]01-15-2025 14:10-0500Body wfgohq74.5 kgK[facility]burg01-15-2025 14:10-0500Diastolic blood ozyjvusq93 mm[Hg][facility]01-15-2025 14:10-0500 Heart rate67 /[facility]01-15-2025 14:10-0500 Respiratory rate16 /[facility]01-15-2025 14:10-0500 SaO2% (BldA) [Mass fraction]96 %[facility]01-15-2025 14:10-0500Systolic blood xzykgsod909 mm[Hg][facility] 04-19-2024 16:06-0500Body wzxicp688.72 cmK[facility] 04-19-2024 16:06-0500Body mass index (BMI) [Ratio]31.2 kg/j6NlywqwliuKettering Health Miamisburg11-25-2024 16:06-0500Body myrttw34.24 kgK[facility]11-25-2024 16:06-0500Diastolic blood ywgapyxf86 mm[Hg][facility]11-25-2024 16:06-0500Heart rate84 /[facility]11-25-2024 16:06-0500Respiratory rate18 /[facility]11-25-2024 16:06-2486FhM2% (BldA) [Mass fraction]98 %[facility]11-25-2024 16:06-0500Systolic blood snpzxgur398 mm[Hg][facility]11-21-2024 15:08-0500Body inumum896.7 cmTejas Stevens MD Work Phone: 1([phone])[address]11[address] [place], [place] [address]Kguobfuxqs27-51-4173 15:08-0500Body mass index (BMI) [Ratio]30.87 kg/m2Tejas Stevens MD Work Phone: [facility] CenterTkskpgrqso10-37-7142 15:08-0500Body temperature 97.5 [degF]Tejas Stevens MD Work Phone: [place] [address]Ztncollwtq10-41-4951 15:08-0500Body .08 kgTejas Stevens MD Work Phone: [place] [address]Czqyxxqdhl67-03-6366 15:08-0500Diastolic blood wfsethuf33 mm[Hg]Tejas Stevens MD Work Phone: [place] [address]Gcwkaflyss94-16-5359 15:08-0500Heart rate90 /min Tejas Stevens MD Work Phone: [place] [address]Qhynmzmkuv44-19-5383 15:08-0500Respiratory rate20 /minTejas Stevens MD Work Phone: [place] [address]Ppoxsagynt81-03-4429 15:08-4427JpP6% (BldA) [Mass fraction]97 %Tejas Stevens MD Work Phone: [place] [address]Dsbibysnck23-59-6685 15:08-0500Systolic blood ltltebhx835 mm[Hg]Tejas Stevens MD Work Phone: [place] [address]Ntbxdqcorq26-21-4424 16:21-0500Body nbonzx03.35 kgK[facility]11-13-2024 16:21-0500Diastolic blood pressure 60 mm[Hg][facility]11-13-2024 16:21-0500Heart rate69 /min [facility]11-13-2024 16:21-1020LgN3% (BldA) [Mass fraction]98 %[facility]11-13-2024 16:21-0500Systolic blood pmxoueen952 mm[Hg][facility]10-17-2024 15:19-0400 Body ohumeo270.7 cmRohan Han DPM Work Phone: [facility] CenterNosnnoeecv86-44-9124 15:19-0400Body mass index (BMI) [Ratio]30.41 kg/d5VdwvmebdRohan Han DPM Work Phone: [facility] CenterLadwrjakrh07-69-2277 15:-0400Body ugkjxz86.72 kgRohan Han DPM Work Phone: [facility] CenterSqszotccwi20-93-5520 15:19-0400Diastolic blood kxemwnvd45 mm[Hg]Rohan Han DPM Work Phone: [facility] CenterSvhcleeutn86-86-1948 15:19-0400Heart rate85 /min Rohan Han DPM Work Phone: [facility] CenterFzzicgiuwz78-03-1811 15:19-0400Systolic blood lwuhfypd932 mm[Hg]Rohan Han DPM Work Phone: [facility] CenterSorziwziqz19-07-4455 16:09-0400Body iuhgyj918.7 cmTejas Stevens MD Work Phone: [facility] CenterUntdtpbnmo03-83-3953 16:09-0400Body mass index (BMI) [Ratio]30.41 kg/m2Tejas Stevens MD Work Phone: [facility] CenterVnwnvlpeqj60-17-0693 16:09-0400Body temperature 97.5 [degF]Tejas Stevens MD Work Phone: [facility] CenterBhojaqbhyx52-39-7405 16:09-0400Body akvqtw03.72 kgTejas Stevens MD Work Phone: [facility] CenterQrffntdpvz67-11-5154 16:09-0400Diastolic blood lmellhjg95 mm[Hg]Tejas Stevens MD Work Phone: [facility] CenterJxrgxfibvg50-83-1910 16:09-0400Heart rate68 /min Tejas Stevens MD Work Phone: [facility] CenterRjhbkchpfx50-81-4646 16:09-0400Respiratory rate20 /minTejas Stevens MD Work Phone: [facility] CenterJjtaftuevr83-14-5252 16:09-7759DkK9% (BldA) [Mass fraction]97 %Tejas Stevens MD Work Phone: [facility] CenterFvxuiftune76-60-1601 16:09-0400Systolic blood mm[Hg]Tejas Stevens MD Work Phone: [facility] CenterZedovsxtow23-29-4410 14:14-0400Body nyjmvq694.7 cmSnehal RAUSCH Work Phone: [facility]08-28-2024 14:14-0400Body mass index (BMI) [Ratio]34.36 kg/o4KuzrsxmuSnehal RAUSCH Work Phone: [facility]08-28-2024 14:14-0400Body .51 kgSnehal RAUSCH Work Phone: [facility]08-28-2024 14:14-0400Diastolic blood eharkelw41 mm[Hg]Snehal RAUSCH Work Phone: [facility]08-28-2024 14:14-0400Heart rate 76 /minSnehal RAUSCH Work Phone: [facility]08-28-2024 14:14-0400Systolic blood qblqceed395 mm[Hg]Snehal Vargas PA Work Phone: [facility]08-20-2024 13:15-0400Body ttqduo283.7 cmTejas Stevens MD Work Phone: [facility] CenterOlkqtbmgex69-02-3814 13:15-0400Body mass index (BMI) [Ratio]29.35 kg/m2Tejas Stevens MD Work Phone: [facility] CenterSlhzblkpjh42-68-7930 13:15-0400Body temperature 97.3 [degF]Tejas Stevens MD Work Phone: 1(306)950-[address] [place], [place] [address]Qqkakhtqxv13-84-7286 13:15-0400Body tlvfae37.54 kgTejas Stevens MD Work Phone: 1(141)[address] [place], [place] [address]Uhyavpdoek96-65-3557 13:15-0400Diastolic blood bqfixyvb02 mm[Hg]Tejas Stevens MD Work Phone: 1(415)[address]2839[address] [place], [place] [address]Ovuzehvgio12-83-7410 13:15-0400Heart rate68 /min Tejas Stevens MD Work Phone: 1(209)3-[address] [place] [address]-20-2024 13:15-0400Respiratory rate20 /minTejas Stevens MD Work Phone: 1(202)876-[address] [place], [place] [address]Zyydcnrmcd76-88-5486 13:15-5520NoQ7% (BldA) [Mass fraction]98 %Tejas Stevens MD Work Phone: 1(822)452-[address] [place], [place] [address]Zidstdnpmq88-00-9729 13:15-0400Systolic blood mm[Hg]Tejas Stevens MD Work Phone: 1(857)9-[address] [place], [place] [address]Gtkfzhmqjk29-81-6555 16:24-0400Body .72 cm[facility]08-13-2024 16:24-0400Body mass index (BMI) [Ratio]29.2 kg/u1ShzfruehhK[facility]tering Health [facility]burg08-13-2024 16:24-0400Body sckwyjrgwef93.1 [degF][facility]08-13-2024 16:24-0400Body jyutyd57.25 kgK[facility]08-13-2024 16:24-0400Diastolic blood fizbhzhc38 mm[Hg][facility]08-13-2024 16:24-0400 Heart rate68 /[facility]08-13-2024 16:24-0400 Respiratory rate18 /[facility]08-13-2024 16:24-0400 SaO2% (BldA) [Mass fraction]96 %[facility]08-13-2024 16:24-0400Systolic blood ysruzmiy595 mm[Hg][facility] 01-05-2024 14:42-0400Diastolic blood nxikuryv61 mm[Hg][facility]08-12-2024 14:42-0400Systolic blood swatrxcz695 mm[Hg][facility]08-12-2024 14:37-0400Body htdzow097.72 cmK[facility]08-12-2024 14:37-0400Body mass index (BMI) [Ratio]29 kg/m2 [facility]08-12-2024 14:37-0400Body qdotsq78.8 kg [facility]08-12-2024 14:37-0400Heart rate85 /[facility]08-12-2024 14:37-0400Respiratory rate18 /[facility]08-12-2024 14:37-2603GrK4% (BldA) [Mass fraction]99 % [facility]06-11-2024 15:48-0400Body popphq205.72 cmMD Tejas Stevens Work Phone: [facility]06-11-2024 15:48-0400 Body mass index (BMI) [Ratio]30.4 kg/m2MD Tejas Stevens Work Phone: [facility]06-11-2024 15:48-0400 Body btqidracacj54.6 [degF]MD Tejas Stevens Work Phone: [facility]06-11-2024 15:48-0400 Body sdebol41.71 kgMD Tejas Stevens Work Phone: [facility]06-11-2024 15:48-0400 Diastolic blood gjocstpl71 mm[Hg]MD Tejas Stevens Work Phone: 1(881)542-[address] [place], [place] 1211806-11-2024 15:48-0400 Heart rate69 /minMD Tejas Stevens Work Phone: 1(636)984-[address] [place], [place] 1211806-11-2024 15:48-0400 Respiratory rate20 /minMD Tejas Stevens Work Phone: 1(406)[address]06-11-2024 15:48-0400 SaO2% (BldA) [Mass fraction]96 %MD Tejas Stevens Work Phone: 1([phone])[address]06-11-2024 15:48-0400 Systolic blood dzicipqo030 mm[Hg]MD Tejas Stevens Work Phone: [phone])[address]05-28-2024 13:09-0400 Body thwyji465.72 cmMD Tejas Stevens Work Phone: [phone])[address]05-28-2024 13:09-0400 Body mass index (BMI) [Ratio]33.3 kg/m2MD Tejas Stveens Work Phone: [phone]05-28-2024 13:09-0400 Body vswfzirnxnn34.7 [degF]MD Tejas Stevens Work Phone: [facility]05-28-2024 13:09-0400 Body .5 kgMD Tejas Stevens Work Phone: [phone]05-28-2024 13:09-0400 Diastolic blood douikyaf47 mm[Hg]MD Tejas Stevens Work Phone: 1(851)555-[facility]05-28-2024 13:09-0400 Heart rate82 /minMD Tejas Stevens Work Phone: [phone])085-[facility]05-28-2024 13:09-0400 Respiratory rate16 /minMD Tejas Stevens Work Phone: 1(266)572-[address] [place], [place] 1211805-28-2024 13:09-0400 SaO2% (BldA) [Mass fraction]92 %MD Tejas Stevens Work Phone: 1([phone])674-[address] [place], [place] 1211805-28-2024 13:09-0400 Systolic blood zgnduncl916 mm[Hg]MD Tejas Stevens Work Phone: 1(215)160-[address] [place], [place] 1211805-06-2024 14:11-0400 Body ejlexf320.72 cmMD Tejas Stevens Work Phone: [phone])[address]05-06-2024 14:11-0400 Body mass index (BMI) [Ratio]29 kg/m2MD Tejas Stevens Work Phone: [phone])[address]05-06-2024 14:11-0400 Body vmakut71.63 kgMD Tejas Stveens Work Phone: 1([phone]05-06-2024 14:11-0400 Diastolic blood kfukddvl60 mm[Hg]MD Tejas Stevens Work Phone: [phone] [address] [place], [place] 1211805-06-2024 14:11-0400 Heart rate67 /minMD Tejas Stevens Work Phone: 1(380)[address]05-06-2024 14:11-0400 Respiratory rate18 /minMD Tejas Stevens Work Phone: 1(849)404-[address] [place], [place] 1211805-06-2024 14:11-0400 SaO2% (BldA) [Mass fraction]99 %MD Tejas Stevens Work Phone: 1(750)475-[address] [place], [place] 1211805-06-2024 14:11-0400 Systolic blood eeotuqvm927 mm[Hg]MD Tejas Stevens Work Phone: 1(015)948-[address] [place], [place] 1211803-30-2024 15:00-0400 Body .1 [degF]DO John Ervin Work Phone: [facility]03-30-2024 15:00-0400 Diastolic blood ekmftehq52 mm[Hg]DO John Ervin Work Phone: 1(181)[address]03-30-2024 15:00-0400 Heart rate62 /Lisa Ervin Work Phone: 1(827)438[address]03-30-2024 15:00-0400 Inhaled oxygen sgwzbnkupashd60 %DO John Ervin Work Phone: 1(146)28388 [address]03-30-2024 15:00-0400 Respiratory rate17 /Lias Ervin Work Phone: 1(908)130[address]03-30-2024 15:00-0400 SaO2% (BldA) [Mass fraction]100 %DO John Ervin Work Phone: 1(645)[address] [place], [place] 1377603-30-2024 15:00-0400 Systolic blood dimgsgng373 mm[Hg]DO John Ervin Work Phone: 1(183)[address]03-30-2024 05:42-0400 Body .3 kgDO John Ervin Work Phone: 1(875)[address]03-29-2024 12:26-0400 Body ksfmar256.72 cmDO John Ervin Work Phone: 1(478)[address] [place], [place] 1377603-29-2024 10:14-0400 Inhaled oxygen flow rate12 L/Lisa Ervin Work Phone: 1(068)[address]03-19-2024 16:00-0400 Body mass index (BMI) [Ratio]29.9 kg/m2DO John Ervin Work Phone: 1(742)664[address]03-02-2024 12:00-0500 Body uvygrattezp31.6 [degF]DO John Ervin Work Phone: 1(821)99[address]03-02-2024 12:00-0500 Diastolic blood ehjzpfyt25 mm[Hg]DO John Ervin Work Phone: 1(026)12888 [address]03-02-2024 12:00-0500 Heart rate95 /Lisa Ervin Work Phone: [facility]03-02-2024 12:00-0500 Respiratory rate16 /Lisa Ervin Work Phone: [facility]03-02-2024 12:00-0500 SaO2% (BldA) [Mass fraction]97 %DO John Ervin Work Phone: [facility]03-02-2024 12:00-0500 Systolic blood iqmgbirb806 mm[Hg]DO John Ervin Work Phone: 1([phone]03-02-2024 04:12-0500 Body jzykiq187.4 kgDO John Ervin Work Phone: 1(469)971[facility]04[facility]02-29-2024 13:20-0500 Body tmyezs112.72 cmDO John Ervin Work Phone: 1(041)906[facility]11[facility]02-23-2024 22:21-0500 Body hptreittuzc59.8 [degF]DO John Ervin Work Phone: 1(868)237[facility]94[facility]02-23-2024 22:21-0500 Diastolic blood eaphfdos00 mm[Hg]DO John Ervin Work Phone: 1(696)451[facility]68[facility]02-23-2024 22:21-0500 Heart rate92 /Lisa Ervin Work Phone: 1(009)704-62[facility]02-23-2024 22:21-0500 Respiratory rate18 /Lisa Ervin Work Phone: 1(327)332-51[facility]02-23-2024 22:21-0500 SaO2% (BldA) [Mass fraction]99 %DO John Ervin Work Phone: 1([phone])145-25[facility]02-23-2024 22:21-0500 Systolic blood slrdbcus554 mm[Hg]DO John Ervin Work Phone: 1(762)421[facility]86[facility]02-23-2024 12:55-0500 Inhaled oxygen flow rate6 L/BrianO John Ervin Work Phone: 1(419)355-[address] [place], [place] 6185402-23-2024 11:21-0500 Body mass index (BMI) [Ratio]32.8 kg/m2DO John Ervin Work Phone: 1(278)[address]02-23-2024 10:45-0500 Body qfoynx480.72 cmDO John Ervin Work Phone: 1(046)666[address]02-23-2024 09:44-0500 Body kgDO John Ervin Work Phone: 1(907)70388 [address]02-15-2024 22:48-0500 Body awmmbb430.72 cmDO John Ervin Work Phone: 1(026)75288 [address]02-15-2024 22:48-0500 Body bawfsyvltva03.8 [degF]DO John Ervin Work Phone: 1(461)07388 [address]02-15-2024 22:48-0500 Body gxbfar18.2 kgDO John Ervin Work Phone: 1(372)[address]02-15-2024 22:48-0500 Diastolic blood qvkkwiah68 mm[Hg]DO John Ervin Work Phone: 1(661)[address]02-15-2024 22:48-0500 Heart rate82 /Lisa Ervin Work Phone: 1(345)20288 [address]02-15-2024 22:48-0500 Respiratory rate16 /BrianO John Ervin Work Phone: 1(728)389-[address] [place], [place] 6185402-15-2024 22:48-0500 SaO2% (BldA) [Mass fraction]100 %DO John Ervin Work Phone: 1(416)33388 [address]02-15-2024 22:48-0500 Systolic blood xrbzizww795 mm[Hg]DO John Ervin Work Phone: 1(326)[address]02-15-2024 15:53-0500 Body gvixtg939.7 cmRohan Han DPM Work Phone: [facility] CenterClabrhvyav56-53-6653 15:53-0500Body mass index (BMI) [Ratio]35.12 kg/t2Zlhuvlfz Brown DPM Work Phone: 1(776)290-[address] [place], [place] [address]Hctqgqfbje84-42-5929 15:53-0500Body urqwfb681.78 kgAntnoioyasmine Han DPM Work Phone: 1(713)215-[address] [place], [place] [address]Ursyqfnbkn08-60-8001 15:53-0500Diastolic blood sxbelxvh64 mm[Hg]Rohan Han DPM Work Phone: 1(664)[address] [place], [place] 6830902-15-2024 15:53-0500Heart rate79 /min Rohan Han DPM Work Phone: 1(481)[facility] [place], [place] [address]Hyemycuokf71-74-4964 15:53-0500Systolic blood ucsoxjws682 mm[Hg]Rohan Han DPM Work Phone: 1(121)[facility] [place], [place] [address]Ycwnxxotet65-96-0284 16:15-0500Body dfjtqy441.7 cmAreliscorinna Han DPM Work Phone: 1(583)4-[address] [place], [place] [address]Ixdmoomfjd51-79-7098 16:15-0500Body mass index (BMI) [Ratio]35.12 kg/y2Atzmadcp Brown DPM Work Phone: 1(967)788-[address] [place], [place] [address]Burglcvxkb29-78-9010 16:15-0500Body ipppgu606.78 kgAntonioyasmine Han DPM Work Phone: 1(979)024-[address] [place], [place] [address]Hpxhxsriuj65-21-9592 16:15-0500Diastolic blood urkargph55 mm[Hg]Rohan Han DPM Work Phone: 1(340)[address] [place], [place] [address]Krmbuqcugf89-53-7197 16:15-0500Heart rate79 /min Rohan Han DPM Work Phone: 1(195)480-[address] [place], [place] [address]Demqvyfhxq85-84-1573 16:15-0500Systolic blood mm[Hg]Rohan Han DPM Work Phone: 1(681)452-[address] [place], [place] [address]Piarexsjjy17-05-0272 13:15-0500Body peefdz900.72 cmTondra Mapus Other [facility]02-01-2024 13:15-0500 Body mass index (BMI) [Ratio]30.41 kg/t7Bxnebz Mapus Other [employer] Other 02-01-2024 13:15-0500Body jvzewn35.72 kgTondra Mapus Other [employer] Other 02-01-2024 13:15-0500Body dzonev01.71 kgDO John Ervin Work Phone: [facility]02-01-2024 13:15-0500 Diastolic blood zmuevbad41 mm[Hg]Tondra Mapus Other [facility]02-01-2024 13:15-0500 Respiratory rate18 /minTondra Mapus Other [facility] [employer] Other 02-01-2024 13:15-0533NvP6% (BldA) [Mass fraction]99 % Tondra Mapus Other [employer] Other 02-01-2024 13:15-0500Systolic blood tdkmkyia622 mm[Hg] Tondra Mapus Other [facility]12-06-2023 15:00-0500 Body mpsioh074.72 cmMichael Blank Other [facility]12-06-2023 15:00-0500 Body mass index (BMI) [Ratio]30.71 kg/m9Khfvgks Blank Other [employer] Other 12-06-2023 15:00-0500Body rqdzsqeuhhi82 [degF]Micahel Blank Other [employer] Other 12-06-2023 15:00-0500Body .63 kgMichael Blank Other [employer] Other 12-06-2023 15:00-0500Body rtmgyp88.62 kgDO John Ervin Work Phone: [facility]12-06-2023 15:00-0500 Diastolic blood fabgpyqx93 mm[Hg]Michael Ramírez Other [facility]12-06-2023 15:00-0500 Systolic blood ggazzqra739 mm[Hg]Michael Ramírez Other [facility]11-16-2023 14:30-0500 Body wrrygb588.72 cmMichael Blank Other [employer] Other 11-16-2023 14:30-0500Body mass index (BMI) [Ratio] 30.71 kg/o8Egbmhjm Blank Other [employer] Other 11-16-2023 14:30-0500Body fhjjaxdykzb04.3 [degF] Michael Ramírez Other [employer] Other 11-16-2023 14:30-0500Body nuwlty63.63 kgMichael Blank Other [employer] Other 11-16-2023 14:30-0500Diastolic blood zguhurmg86 mm[Hg] Michael Ramírez Other [employer] Other 11-16-2023 14:30-0500Systolic blood krjnezbt815 mm[Hg] Michael Ramírez Other [employer] Other 10-26-2023 13:00-0400Body paruoo080.72 cmTondra Mapus Other [facility] [employer] Other 10-26-2023 13:00-0400Body mass index (BMI) [Ratio]30.7 kg/e9Upvvag Mapus Other [employer] Other 10-26-2023 13:00-0400Body rzwzyc47.58 kgTondra Mapus Other [facility] [employer] Other 10-26-2023 13:00-0400Diastolic blood mm[Hg] Tondra Mapus Other [employer] Other 10-26-2023 13:00-0400Respiratory rate18 /minTondra Mapus Other [facility] [employer] Other 10-26-2023 13:00-1564JrM4% (BldA) [Mass fraction]98 % Tondra Mapus Other [facility] [employer] Other 10-26-2023 13:00-0400Systolic blood kzqkgjgi442 mm[Hg] Tondra Mapus Other [facility] [employer] Other 10-10-2023 11:41-0400Body ijleyaldikn36.7 [degF]MD Teajs Stevens Work Phone: [facility]10-10-2023 11:41-0400 Diastolic blood wiqyarcv05 mm[Hg]MD Tejas Stevens Work Phone: [facility]10-10-2023 11:41-0400 Heart rate62 /minMD Tejas Stevens Work Phone: [facility]10-10-2023 11:41-0400 Respiratory rate12 /minMD Tejas Stevens Work Phone: 1(818)055-[address] [place], [place] 1211810-10-2023 11:41-0400 SaO2% (BldA) [Mass fraction]94 %MD Tejas Stevens Work Phone: 1(284)[address]10-10-2023 11:41-0400 Systolic blood hijzmwzn747 mm[Hg]MD Tejas Stevens Work Phone: 1(036)81658 [address]10-10-2023 06:31-0400 Body thzyxb08.2 kgMD Tejas Stevens Work Phone: 1(875)[address]10-09-2023 13:36-0400 Body zekdag601.72 cmMD Tejas Stevens Work Phone: 1(841)[address] [place], [place] 3904010-04-2023 10:56-0400 Body mass index (BMI) [Ratio]30.4 kg/m2MD Tejas Stevens Work Phone: 1(375)[address]10-01-2023 16:21-0400 Diastolic blood wzcmkfov84 mm[Hg]MD Tejas Stevens Work Phone: 1(589)7[address]58 [address]10-01-2023 16:21-0400 Heart rate70 /minMD Tejas Stevens Work Phone: 1(215)[address]10-01-2023 16:21-0400 Respiratory rate16 /minMD Tejas Stevens Work Phone: 1(929)[address]10-01-2023 16:21-0400 SaO2% (BldA) [Mass fraction]96 %MD Tejas Stevens Work Phone: 1(877)73658 [address]10-01-2023 16:21-0400 Systolic blood bdjaghog151 mm[Hg]MD Tejas Stevens Work Phone: 1(712)[address]10-01-2023 12:39-0400 Body uvrwsmxiasl37.4 [degF]MD Tejas Stevens Work Phone: 1(952)[address]10-01-2023 11:43-0400 Body flhdai713.72 cmMD Tejas Stevens Work Phone: [facility]10-01-2023 11:43-0400 Body iouyas758.15 kgMD Tejas Stevens Work Phone: [facility]09-11-2023 10:30-0400 Body iwswns701.72 cmPamela Berry Other [employer] Other 09-11-2023 10:30-0400Body mass index (BMI) [Ratio]33.6 kg/r9FykxafPamela Berry Other [facility] Other 09-11-2023 10:30-0400Body hjizvluwcak89.5 [degF]Pamela Berry Other [employer] Other 09-11-2023 10:30-0400Body .25 kgPamela Berry Other [facility] Other 09-11-2023 10:30-0400Diastolic blood ztosvagc65 mm[Hg] Pamela Berry Other [facility] Other 09-11-2023 10:30-2329ZtB7% (BldA) [Mass fraction]96 % Pamela Berry Other [facility] Other 09-11-2023 10:30-0400Systolic blood mm[Hg] Pamela Berry Other [employer] Other 08-21-2023 18:40-0400Diastolic blood fsejpkrd80 mm[Hg] MD Tejas Stevens Work Phone: [facility]08-21-2023 18:40-0400 Heart rate84 /minMD Tejas Stevens Work Phone: [facility]08-21-2023 18:40-0400 Respiratory rate16 /minMD Tejas Maradiagadaniele Work Phone: [facility]08-21-2023 18:40-0400 SaO2% (BldA) [Mass fraction]97 %MD Tejas Stevens Work Phone: [facility]08-21-2023 18:40-0400 Systolic blood urldvrfr257 mm[Hg]MD Tejas Stevens Work Phone: [facility]08-21-2023 13:22-0400 Body gqybha919.72 cmMD Tejas Maradiagadaniele Work Phone: [facility]08-21-2023 13:22-0400 Body gtljup846.24 kgMD Tejas Barrownilay Work Phone: [facility]08-18-2023 10:00-0400 Body kfbkky855.72 cmDhruv Bautista Other [employer] Other 08-18-2023 10:00-0400Body mass index (BMI) [Ratio]33.6 kg/j0OsgkzdpDhruv Bautista Other [employer] Other 08-18-2023 10:00-0400Body qxqxxtxkcys39.3 [degF] Dhruv Bautista Other [employer] Other 08-18-2023 10:00-0400Body urmvuv411.25 kgDhruv Bautista Other [employer] Other 08-18-2023 10:00-0400Diastolic blood ogmzqyzu87 mm[Hg] Dhruv Bautista Other [employer] Other 08-18-2023 10:00-2666DsI9% (BldA) [Mass fraction]96 % Dhruv Bautista Other [employer] Other 08-18-2023 10:00-0400Systolic blood cbspcyqp097 mm[Hg] Dhruv Bautista Other [employer] Other 03-01-2023 14:45-0500Body ujasoe915.72 cmTondra Mapus Other [employer] Other 03-01-2023 14:45-0500Body mass index (BMI) [Ratio] 34.63 kg/d8Fzqfue Mapus Other [employer] Other 03-01-2023 14:45-0500Body .33 kgTondra Mapus Other [employer] Other 03-01-2023 14:45-0500Diastolic blood cgmieiwu54 mm[Hg] Tondra Mapus Other [employer] Other 03-01-2023 14:45-0500Respiratory rate18 /minTondra Mapus Other [employer] Other 03-01-2023 14:45-9062YiQ1% (BldA) [Mass fraction]96 % Tondra Mapus Other [employer] Other 03-01-2023 14:45-0500Systolic blood wjycwgnd553 mm[Hg] Tondra Mapus Other [employer] Other 09-14-2022 15:15-0400Body ywckps933.72 cmTondra Mapus Other [employer] Other 09-14-2022 15:15-0400Body mass index (BMI) [Ratio] 35.58 kg/x4Qytxax Mapus Other [employer] Other 09-14-2022 15:15-0400Body .14 kgTondra Mapus Other [employer] Other 09-14-2022 15:15-0400Diastolic blood ickfzgef703 mm[Hg]Tondra Mapus Other [employer] Other 09-14-2022 15:15-0400Respiratory rate20 /minTondra Mapus Other [employer] Other 09-14-2022 15:15-5296PdX0% (BldA) [Mass fraction]98 % Tondra Mapus Other [employer] Other 09-14-2022 15:15-0400Systolic blood jaubvfkl035 mm[Hg] Tondra Mapus Other [employer] Other 03-31-2022 14:00-0400Body nisfjy275.72 cmTondra Mapus Other [employer] Other 03-31-2022 14:00-0400Body mass index (BMI) [Ratio] 36.34 kg/o4Eqplva Mapus Other [employer] Other 03-31-2022 14:00-0400Body cwjiog524.41 kgTondra Mapus Other [employer] Other 03-31-2022 14:00-0400Diastolic blood wldueboo885 mm[Hg]Tondra Mapus Other [employer] Other 03-31-2022 14:00-0400Respiratory rate20 /minTondra Mapus Other [employer] Other 03-31-2022 14:00-5393ZiI6% (BldA) [Mass fraction]97 % Tondra Mapus Other [employer] Other 03-31-2022 14:00-0400Systolic blood hcyxnmsn634 mm[Hg] Tondra Mapus Other [employer] Other 11-09-2021 15:00-0500Body xsbexa080.72 cmTondra Mapus Other [employer] Other 11-09-2021 15:00-0500Body mass index (BMI) [Ratio] 31.62 kg/x7Ujkzvv Mapus Other [employer] Other 11-09-2021 15:00-0500Body dyoqui81.35 kgTondra Mapus Other [employer] Other 11-09-2021 15:00-0500Diastolic blood dfffzfit30 mm[Hg] Tondra Mapus Other [employer] Other 11-09-2021 15:00-0500Respiratory rate20 /minTondra Mapus Other [employer] Other 11-09-2021 15:00-7735LwO1% (BldA) [Mass fraction]98 % Tondra Mapus Other [employer] Other 11-09-2021 15:00-0500Systolic blood pjmynair214 mm[Hg] Tondra Mapus Other [employer] Other 09-30-2021 12:00-0400Body qwveeo297.72 cmTondra Mapus Other [employer] Other 09-30-2021 12:00-0400Body mass index (BMI) [Ratio] 30.35 kg/c2Iropcd Mapus Other [employer] Other 09-30-2021 12:00-0400Body .54 kgTondra Mapus Other [employer] Other 09-30-2021 12:00-0400Diastolic blood mlnaitui82 mm[Hg] Tondra Mapus Other [employer] Other 09-30-2021 12:00-0400Respiratory rate18 /minTondra Mapus Other [employer] Other 09-30-2021 12:00-4285SgH1% (BldA) [Mass fraction]99 % Tondra Mapus Other [employer] Other [id number] 12:00-0400Systolic blood aujfdrpu355 mm[Hg] Tondra Mapus Other [employer] Other Encounters Encounter DateEncounter TypeCare ProviderFacilityStart: 03-29-2025 End: 74-62-9252vsqeirwisgJhap Naderer MD Work Phone: -[facility] ClydeStart: 03-29-2025 End: 86-91-4985Xcxpvbd encounter procedureTejas Stevens MD-[facility] [place] Work Phone: Start: 03-11-2025 End: 97-29-2047Etrikrcii department patient visitTejas Stevens MD Work Phone: 2(284)744-4369057-0096-Gppqtepot Room Work Phone: Start: 02-10-2025 End: 34-46-8376Ddtkkib encounter procedureRohan Han DPM Work Phone: n[facility] CI PODIATRYComment on above: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 Work Phone: Start: 02-01-2025 End: 08-58-1976Avfmomu encounter procedureTejas Stevens [facility] [place] Work Phone: Start: 01-19-2025 End: 76-83-5799ymqedetsgfZxyq Naderer MD Work Phone: [facility] Work Phone: Start: 01-19-2025 End: 90-90-6195Onzojso encounter Jun [facility] [place] Work Phone: Start: 01-13-2025 End: 50-87-3957yrazddxxknZtdj Naderer MD Work Phone: 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 Rita's Hospitaltart: 01-04-2025 End: 31-33-8354Dohjhx outpatient visit 15 minutesLicha Medrano MD Work Phone: [facility] Department of [facility] SystemComment on above:TIA (transient ischemic attack) (Primary Dx)Start: 39-51-9493Wgq-patient / Non-visitSanket Hammer MD-[facility] Work Phone: Start: 12-30-2024 End: 98-97-5824Rlfuimnpx Result EncounterGeneric External Data ProviderNOMS External Department UnsolicitedStart: 12-30-2024 End: 37-89-7479Fqslqsdjj Result EncounterGeneric External Data ProviderNOMS External Department UnsolicitedStart: 12-16-2024 End: 74-77-5495EkvbcpMgvx Naderer MD Work Phone: [facility] FMComment on above:Diabetic polyneuropathy associated with type 2 diabetes mellitus (HCC); MDD (major depressive disorder), recurrent episode, moderate (HCC); Essential hypertension, benignStart: 12-14-2024 End: 01-66-0395Pfbkjl outpatient visit 15 minutesTejas Stevens MD Work Phone: [facility] CWM FMComment on above:Transient ischemic attack (Primary Dx); Stenosis of both internal carotid arteries; Type 2 diabetes mellitus with hyperglycemia, with long-term current use of insulin (HCC); Essential hypertension, benignStart: 12-14-2024 End: 24-26-1265jgaeammcahCFEP NADERERNot AvailableStart: 12-14-2024 End: 46-05-6797Qbccna Delbert Stevens MD Work Phone: [facility] CWM FMStart: 12-14-2024 End: 63-53-6509Sdyrhykei Stevens MD Work Phone: [facility] CWM FMStart: 12-02-2024 End: 29-41-7411YlgafuLkrh Naderer MD Work Phone: [facility] CWM FMComment on above:Diabetic polyneuropathy associated with type 2 diabetes mellitus (HCC)Start: 11-24-2024 End: 35-42-3097Weaapnjyb encounterPaige Xander [facility], A [facility] HospitalStart: 11-22-2024 End: 64-36-9440vguraljeerLTVYRNE [facility] HospitalStart: 11-19-2024 End: 70-09-6463Imfteupssr and management of inpatientEHAD AFREENSelect Medical [facility] HospitalStart: 11-19-2024 End: 19-88-2835Swjmeokylo and management of inpatientMARC [facility] HospitalStart: 11-13-2024 End: 65-47-9919PyfxkkXstu Naderer MD Work Phone: [facility] CWM FMComment on above:Essential hypertension, benign ; MDD (major depressive disorder), recurrent episode, moderate (HCC); Diabetic polyneuropathy associated with type 2 diabetes mellitus (HCC)Start: 11-04-2024 End: 99-08-2919haaxulbcleWXAJABSV A BROWNNot AvailableStart: 11-04-2024 End: 91-85-0093Qempdly encounter procedureRohan Han DPM Work Phone: [facility] CI PODIATRYComment on above: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) (Primary Dx); Onychomycosis; Toe pain, right; History of transmetatarsal amputation of left foot (HCC); Xerosis cutisStart: 11-04-2024 End: 01-01-0458Svuqze flowsJonelle Han DPM Work Phone: noMS CI PODIATRYStart: 11-04-2024 End: 94-55-1012Rmnsei Deborah Han DPM Work Phone: [facility] CI PODIATRYStart: 10-19-2024 End: 20-78-0154NxlgtcLnmk Naderer MD Work Phone: [facility] CWM FMComment on above:Chronic heart failure with preserved ejection fraction (HFpEF) ([facility])Start: 10-14-2024 End: 80-66-6098hwktymtppmHUFT NADERERNot AvailableStart: 73-71-8227Uisjtu outpatient visit 15 minutesPhilip [facility] Eye InstituteStart: 75-95-0740bgedzpetsjRssxtp T [facility] Eye InstituteStart: 09-28-2024 End: 33-91-0190xfgpslyjtfEzenxjlyeC[facility] Work Phone: Start: 09-28-2024 End: 54-98-7880Mnncbew encounter procedureWatauga Medical [facility] Physician GroupAt[facility] Work Phone: Start: 09-01-2024 End: 59-33-3483abvrevbtdsWAMW [facility] Hospitaltart: 09-01-2024 End: 04-86-2817CgkfdwRbts Naderer MD Work Phone: [facility] CWM FMComment on above:Diabetic polyneuropathy associated with type 2 diabetes mellitus (CMS/HCC)Start: 08-31-2024 End: 02-45-5968dfazbwbcvgVsakqaxasLakeHealth [facility] Work Phone: Start: 08-31-2024 End: 75-04-1218Cthbcpn encounter procedureCj Physician Group-[facility] Work Phone: Start: 65-58-7968Pog-patient / Non-visitCj Physician Group-[facility] Work Phone: Start: 08-19-2024 End: 46-12-3546Usbcvtulz Result EncounterGeneric External Data ProviderNOMS External Department UnsolicitedStart: 08-19-2024 End: 97-72-3422Iusurmnqs Result EncounterGeneric External Data ProviderNOMS External Department UnsolicitedStart: 07-29-2024 End: 63-87-0220uhijkahfyqCbukabyelCleveland Clinic [facility] Hospital Work Phone: Start: 07-29-2024 End: 41-58-6730Tmnkocg encounter procedureCj Physician GroupST. 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) (Primary Dx); Onychomycosis; Toe pain, right; History of transmetatarsal amputation of left foot (HCC) (CMS/HCC); Xerosis cutis; Acquired deformity of right toeStart: 07-22-2024 End: 85-84-9390Ggjmpt Deborah Han DPM Work Phone: noms CI PODIATRYStart: 07-22-2024 End: 38-18-6375Mnknzw Deborah Han DPM Work Phone: noms CI PODIATRYStart: 07-12-2024 End: 48-17-5231WozyokTmfo Naderer MD Work Phone: noms CWM FMComment on above:Diabetic polyneuropathy associated with type 2 diabetes mellitus (CMS/HCC)Start: 94-06-5161Evhtpn outpatient visit 25 minutesPhilip Farzana [facility] InstituteStart: 27-81-1008tsvgicilwwUgnsmb T [facility] InstituteStart: 06-09-2024 End: 39-75-3176uaetynfocpXldptrgcgC[facility] Work Phone: Start: 06-09-2024 End: 71-53-1031Wdemfsf encounter procedureWatauga [facility] Work Phone: Start: 06-01-2024 End: 79-54-2128Zvgangfau Result EncounterGeneric External Data ProviderNOMS External Department UnsolicitedStart: 06-01-2024 End: 23-54-0241Iyorzmxnl Result EncounterGeneric External Data ProviderNOMS External Department UnsolicitedStart: 29-11-6675Vul-patient / Non-visitWatauga Medical Center Physician GroupMulticare [facility] Work Phone: Start: 14-79-3987Srq-patient / Non-visitWatauga Medical Center Physician GroupMulticare [facility] Work Phone: Start: 05-31-2024 End: 10-19-1245Lngesnlfl Result EncounterGeneric External Data ProviderNOMS External Department UnsolicitedStart: 05-31-2024 End: 63-96-9628Wwqugbwst Result EncounterGeneric External Data ProviderNOMS External Department UnsolicitedStart: 87-10-3688pxqtmebhjjTwmokg Al Shweiki [facility] InstituteStart: 05-13-2024 End: 58-46-4528YowkkpHqdb Naderer MD Work Phone: noms CWM FMComment on above:Diabetic polyneuropathy associated with type 2 diabetes mellitus (CMS/HCC) (Primary Dx)Start: 05-11-2024 ambulatorySameer Al [facility] Eye InstituteStart: 05-05-2024 End: 22-41-4981Zjdzfxhek Result EncounterGeneric External Data ProviderNOMS External Department UnsolicitedStart: 05-05-2024 End: 49-88-0077Rpwslscfu Result EncounterGeneric External Data ProviderNOMS External Department UnsolicitedStart: 51-30-6439Mwmvbu outpatient new 45 minutes Jony Yanes [facility] Eye InstituteStart: 48-83-1041vuuvkxttllQxxzaw [facility] Eye InstituteStart: 24-45-5394Moi-patient / Non-visitWatauga Medical Center Physician GroupHeart [facility] Work Phone: Start: 58-12-7975jkazpxycvgOlsyeq Al [facility] Eye InstituteStart: 52-57-4014nfrrkqtcmjIrixxy Al [facility] Eye InstituteStart: 04-19-2024 End: 72-19-1016Oywkbbs encounter procedureWatauga Medical Center Physician GroupST. [facility] Work Phone: Start: 04-15-2024 End: 26-66-5395Tbumxe outpatient visit 25 minutesTejas Stevens MD Work Phone: noms CW FMComment on above:Essential hypertension, benign (CMS/HCC) (Primary Dx); MDD (major depressive disorder), recurrent episode, moderate (CMS/HCC); BRYCE (generalized anxiety disorder) (CMS/HCC); Primary insomnia; Chronic heart failure with preserved ejection fraction (HFpEF) (CMS/HCC); Chronic kidney disease, stage IV (severe) (CMS/HCC); Type 2 diabetes mellitus with hyperglycemia, with long-term current use of insulin (CMS/HCC)Start: 04-15-2024 End: 13-30-5772ttrukjsocgNHTN NADERERNot AvailableStart: 04-15-2024 End: 74-99-2223Lwfmhfkei Stevens MD Work Phone: noms CWM FMStart: 04-15-2024 End: 52-11-0311Bvqhvikei Stevens MD Work Phone: noms CWM FMStart: 04-14-2024 End: 75-77-1454Qjawtdizi Result EncounterGeneric External Data ProviderNOMS External Department UnsolicitedStart: 04-14-2024 End: 63-33-5257Rljdouont Result EncounterGeneric External Data ProviderNOMS External Department UnsolicitedStart: 44-93-1274Lfc-patient / Non-visitWatauga Medical Center Physician GroupMulticare [facility] Work Phone: Start: 04-12-2024 End: 27-29-8391OubwaiWcvx Naderer MD Work Phone: noms CWM FMComment on above:Diabetic polyneuropathy associated with type 2 diabetes mellitus (CMS/HCC)Start: 04-07-2024 End: 71-69-7674hguywdjjuePenvvshqkLakeHealth [facility] Work Phone: Start: 04-07-2024 End: 44-97-6441Bgdhyei encounter procedureWatauga Medical Center Physician Group-[facility] Nephrology Keysha Work Phone: Start: 03-30-2024 End: 04-76-0409Pjyximuls Result EncounterGeneric External Data ProviderNOMS External Department UnsolicitedStart: 03-30-2024 End: 51-21-3968Ussvvxbft Result EncounterGeneric External Data ProviderNOMS External Department UnsolicitedStart: 64-20-9034Ltf-patient / Non-visitWatauga Medical Center Physician GroupMultic[facility] Work Phone: Start: 03-11-2024 End: 43-17-7925Fmexzo outpatient visit 15 minutesRohan Han DPM Work Phone: noms CI PODIATRYComment on above:Xerosis cutis (Primary Dx); History of transmetatarsal amputation of left foot (HCC) (CMS/HCC); DM type 1 with diabetic peripheral neuropathy ([facility]/HCC); Onychomycosis; Toe pain, rightStart: 03-11-2024 End: 34-70-7883qxhlqaunmiCMHOLEFT A BROWNNot AvailableStart: 03-11-2024 End: 80-05-5452Anbpuw flowsheetRohan Jovanny Ari DPM Work Phone: noms CI PODIATRYStart: 03-11-2024 End: 59-96-7810Zbagcl Deborah Han DPM Work Phone: noms CI PODIATRYStart: 01-27-2024 End: 54-31-8633Ynjynw outpatient visit 15 minutesTejas Stevens MD Work Phone: noms CWM FMComment on above:Myoclonus (Primary Dx); Primary insomnia; Type 2 diabetes mellitus with diabetic chronic kidney disease (HCC) ([facility]/HCC); Chronic kidney disease, stage 4 (severe) ([facility]/HCC)Start: 01-21-2024 End: 05-03-1415Sgmqgy outpatient visit 15 minutesMicmary RAUSCH Work Phone: [facility] Physicians Genito-Urinary SurgeonsComment on above:Prostate cancer ([facility]-HCC) (Primary Dx)Start: 01-21-2024 End: 55-86-8774mfbhtabeirNUHUHZODBaylor Scott & [facility] Start: 01-16-2024 End: 43-14-2514Ggbwbwavv Result EncounterGeneric External Data ProviderNOMS External Department UnsolicitedStart: 01-16-2024 End: 86-04-3604Daqwabihs Result EncounterGeneric External Data ProviderNOMS External Department UnsolicitedStart: 01-16-2024 End: 91-16-9941Gipcuujxg encounterVeyjovanny Rankin [facility] Genito- Urinary SurgeonsStart: 01-16-2024 End: 63-04-1074aduoutmsypWPMWTDXA [facility] Centertart: 01-13-2024 End: 65-07-2584Wxkhkv Delbert Stevens MD Work Phone: noms CWM FMStart: 01-13-2024 End: 11-45-4423Arcltz Delbert Stevens MD Work Phone: NOAY CWM FMStart: 01-13-2024 End: 21-72-7109Juumnsm encounter procedureTejas Stevens MD Work Phone: noms HealthcareStart: 01-13-2024 End: 63-96-4978Tzduhw follow up visit related to original pxTejas Stevens MD Work Phone: noms [facility] FMComment on above:Medicare annual wellness visit, subsequent (Primary Dx); Current episode of major depressive disorder without prior episode, unspecified depression episode severity (CMS/HCC); Other intervertebral disc degeneration, lumbar regionStart: 01-06-2024 End: 06-73-9976hpkbqtjgdzXwjusepmxC[facility] Work Phone: Start: 01-06-2024 End: 81-41-0798Yqlweht encounter procedureCj Physician Group-[facility] Nephrology Work Phone: Start: 01-05-2024 End: 06-46-7176vsdvxurmykLxrvywcufC[facility] Clinic [facility] Work Phone: Start: 01-05-2024 End: 24-84-6063Uajlmcz encounter procedureCape Fear Valley Medical Centerchristiano Physician GroupST. LAWRENCE [facility] Work Phone: Start: 12-29-2023 End: 40-31-0709tgzcnpivqzAQUS [facility] Hospitaltart: 02-78-2751Vcy-patient / Non-visitRemington Physician Group-[facility] Professional Co Work Phone: Start: 12-12-2023 End: 68-94-8009Rxfcjtfhk encounterBere Rankin CMAProMedica Physicians Genito- Urinary SurgeonsStart: 12-08-2023 End: 98-40-1243Adfhxhsrs Result EncounterGeneric External Data ProviderNOMS External Department UnsolicitedStart: 12-08-2023 End: 08-51-2749Bwdklkwwh Result EncounterGeneric External Data ProviderNOMS External Department UnsolicitedStart: 11-04-2023 End: 48-87-5066rbzwavnwtyMJ Tejas Naderer Work Phone: [facility] Work Phone: Start: 11-04-2023 End: 47-18-6715Feknrck encounter procedureMD Tejas Ashwinidaniele Work Phone: [facility] Pulmonary Disease Work Phone: Start: 10-21-2023 End: 43-13-4331vnvgfwhgzuIU Tejas Stevens Work Phone: [facility] Work Phone: Start: 10-21-2023 End: 00-47-9365Uipjauy encounter procedureMD Tejas Stevens Work Phone: [facility] Nephrology Buster Work Phone: Start: 10-21-2023 End: 61-02-9456JH Tejas Stevens Work Phone: [facility] Nephrology Buster Work Phone: Start: 09-29-2023 End: 59-59-0070hfjuvtjewiZT Tejas Maradiagadaniele Work Phone: [facility] Work Phone: Start: 09-29-2023 End: 31-66-0453Ftinymp encounter procedureMD Tejas Stevens Work Phone: [facility] Work Phone: Start: 09-29-2023 End: 42-75-3571LZ Tejas Stevens Work Phone: [facility] Work Phone: Start: 08-23-2023 End: 74-58-4461Vwh-patient / Non-visitMD Tejas Stevens Work Phone: [facility] Pulmonary Disease Work Phone: Start: 08-23-2023 End: 89-03-0254PB John Ervin Work Phone: [facility] Pul[facility] Disease Work Phone: Start: 08-22-2023 End: 34-10-8928Zek-patient / Non-visitMD Tejas Maradiagaerer Work Phone: [facility] Nephrology Work Phone: Start: 08-22-2023 End: 90-85-1155SX John Ervin Work Phone: [facility] Work Phone: Start: 08-17-2023 End: 15-61-2302Itr-patient / Non-visitMD Tejas Maradiagaerer Work Phone: [facility] Disease Work Phone: Start: 08-17-2023 End: 29-91-8930AK John Ervin Work Phone: [facility] Work Phone: Start: 08-16-2023 End: 36-43-9579Ile-patient / Non-visitMD Tejas Maradiagaerer Work Phone: [facility] Work Phone: Start: 08-16-2023 End: 54-09-0912ZK John Ervin Work Phone: [facility] Work Phone: Start: 08-15-2023 End: 45-45-0845Iwr-patient / Non-visitMD Tejas Naderer Work Phone: [facility] Work Phone: Start: 08-15-2023 End: 40-07-2989EL John Ervin Work Phone: [facility] Work Phone: start: 08-15-2023 End: 44-76-8109Dcu-patient / Non-visitMD Tejas Maradiagaerer Work Phone: [facility] GroupPromedica [facility] Work Phone: Start: 08-15-2023 End: 76-32-1733YT John Ervin Work Phone: [facility] Physician [facility] Work Phone: Start: 08-09-2023 End: 12-38-6747Xvb-patient / Non-visitMD Tejas Maradiagaerer Work Phone: [facility] Work Phone: Start: 08-09-2023 End: 79-44-1927JA John Ervin Work Phone: [facility] Work Phone: Start: 08-08-2023 End: 26-86-6335Eyx-patient / Non-visitMD Tejas Maradiagaerer Work Phone: [facility] Work Phone: Start: 08-08-2023 End: 87-45-5087DU John Ervin Work Phone: [facility] Work Phone: Start: 23-38-4531AS oJhn Ervin Work Phone: [facility] Physician Group-[facility] Work Phone: Start: 08-04-2023 End: 65-56-6326TC Tejas Maradiagaerer Work Phone: [facility] Physician [facility] Work Phone: Start: 08-02-2023 End: 30-92-7797PS John Ervin Work Phone: [facility] Physician [facility] Work Phone: Start: 08-01-2023 End: 35-68-8138BR John Ervin Work Phone: [facility] Nephrology Work Phone: Start: 08-01-2023 End: 89-24-5140VM John Ervin Work Phone: [facility] Cardiology Work Phone: Start: 08-01-2023 End: 44-85-2679DG John Ervin Work Phone: [facility] Physician [facility] Work Phone: Start: 08-01-2023 End: 19-38-9769Gzhfcqzylq and management of inpatientDO John Ervin Work Phone: [facility] Work Phone: Start: 08-01-2023 End: 16-03-9609HS John Ervin Work Phone: [facility] Work Phone: Start: 85-39-1884BJMD Tejas Stevens Work Phone: [facility] GroupOhio[facility] Work Phone: Start: 57-35-5546YV John Ervin Work Phone: [facility] Work Phone: Start: 27-64-4702IU John Ervin Work Phone: [facility] Nephrology Work Phone: Start: 34-15-7798MS John Ervin Work Phone: [facility] Infectious Disease Work Phone: Start: 55-28-8577JX John Ervin Work Phone: [facility] Physician Group-[facility] Work Phone: Start: 07-18-2023 End: 11-47-8686bhusiyeozbAX John Ervin Work Phone: [facility] Work Phone: Start: 07-18-2023 End: 79-50-1746Pxixghux ReferredDO John Ervin Work Phone: [facility]-Dialysis Work Phone: Start: 07-18-2023 End: 95-33-6062GS John Ervin Work Phone: [facility]-Dialysis Work Phone: Start: 77-35-7625Cnt-patient / Non-visitDO John Ervin Work Phone: [facility] Work Phone: Start: 95-34-3134CM John Ervin Work Phone: [facility] Work Phone: start: 87-78-9649Pyc-patient / Non-visitDO John Ervin Work Phone: [facility] Work Phone: start: 73-75-8980DQ John Ervin Work Phone: [facility] Work Phone: Start: 92-68-5004Jxu-patient / Non-visitDO John Ervin Work Phone: [facility] Physician [facility] Work Phone: Start: 93-52-4970TC John Ervin Work Phone: [facility] Work Phone: Start: 59-91-8375Jcy-patient / Non-visitDO John Ervin Work Phone: [facility] Work Phone: Start: 77-25-7938WP John Ervin Work Phone: [facility] Work Phone: Start: 05-33-4888Mwh-patient / Non-visitDO John Ervin Work Phone: [facility] Vascular Surgery Work Phone: Start: 46-25-8127ZO Estebandavid Work Phone: [facility] Vascular Surgery Work Phone: Start: 63-90-7496Buc-patient / Non-visitDO John Ervin Work Phone: [facility] GroupPromedica [facility] Hospital Med Out[facility] Work Phone: Start: 56-03-4712Bchkrmhnhf and management of inpatientDO John Ervin Work Phone: [facility] Work Phone: Start: 07-10-2023 End: 34-03-0263NM John Ervin Work Phone: [facility] Work Phone: Start: 07-10-2023 End: 72-15-8124Ovyflz follow up visit related to original Pearl Han DPM Work Phone: noms CI PODIATRYComment on above:Foot ulcer, left, with fat layer exposed (CMS/HCC) (Primary Dx); 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); PVD (peripheral vascular disease) (CMS/HCC); Foot ulcer, left, with necrosis of muscle (HCC) (CMS/HCC)Start: 18-57-1031Xzriw abstractBrie Han DPM Work Phone: noms CI PODIATRYStart: 53-25-2524Pkoha abstracting Rohan Han DPM Work Phone: noms CI PODIATRYStart: 06-26-2023 End: 94-10-9291Kwltxtm encounter procedureRohan Han DPM Work Phone: noms CI PODIATRYComment on above:Foot ulcer, left, with fat layer exposed (CMS/HCC) (Primary Dx); 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 [employer] Other Start: 06-26-2023 End: 41-45-7331Drfsgycopx RecurringDO John Ervin Work Phone: [facility] Work Phone: Start: 06-26-2023 End: 24-65-1146YV John Ervin Work Phone: [facility] [place] Work Phone: Start: 06-26-2023 End: 01-36-1250Ghzweza encounter procedureDO John Ervin Work Phone: [facility]-Start: 06-26-2023 End: 27-31-9300LN John Ervin Work Phone: [facility]-Start: 06-19-2023 End: 63-94-1543Btuuyayya encounterSnehal RAUSCH Work Phone: [facility] Genito-Urinary SurgeonsStart: 05-12-2023 End: 65-15-5763imecffzfyuJCIDGSeiling Regional [facility] PPGStart: 04-30-2023 End: 15-29-8702ssktcssaroZcgejou Blank Other nort [employer] Other Start: 96-34-0239Pkfdpb outpatient visit 25 minutes Jj Infectious DiseaseStart: 04-30-2023 End: 96-67-1931Wtvvell encounter procedureDO John Ervin Work Phone: [facility] Work Phone: Start: 04-10-2023 End: 77-58-3968mckvkgdbhiIhrgeqn Blank Other [place] [employer] Other Start: 71-27-0498Nkdghg outpatient visit 25 minutes Jj Infectious DiseaseStart: 03-31-2023 End: 03-96-6075wkcdissoreYE Tejas Stevens Work Phone: [facility] Work Phone: Start: 03-31-2023 End: 96-99-4936Jnpeunx encounter procedureMD Tejas Stevens Work Phone: [facility]-Lab [facility] Work Phone: Start: 03-25-2023 End: 60-61-5647jwurkuncoqTW Tejas Stevens Work Phone: [facility] Work Phone: Start: 03-25-2023 End: 03-53-5305Reqlpql encounter procedureMD Tejas Barrowr Work Phone: [facility]-MRI [address] Work Phone: Start: 03-24-2023 End: 61-98-0331rylsuyaiaiTK Tejas Maradiagaerer Work Phone: [facility] Work Phone: start: 03-24-2023 End: 18-36-3915Mfpwnba encounter procedureMD Tejas Maradiagaerer Work Phone: [facility]-Lab [facility] Work Phone: Start: 23-18-9666Nssolqfqep RecurringMD Tejas Stevens Work Phone: [facility] Work Phone: Start: 03-20-2023(PUMP/CGM) Pump / SensorTondra [facility] Care ClinicStart: 03-20-2023 End: 90-58-6648acjikxsiunCaaazo [employer] Other [employer] Other Start: 03-17-2023 End: 73-34-8939clrvedrsktXkpepr [employer] Other [employer] Other Start: 87-29-2483Blctrzhqe encounterTondra [facility] ClinicStart: 03-17-2023 End: 44-95-9517Zmxltwt encounter procedureMD Tejas Stevens Work Phone: [facility]-Lab [facility] Work Phone: Start: 79-85-5248Borpbbjvf encounterPadonald Terrell RN [facility] NeurologyStart: 03-10-2023 End: 80-80-8413xmgdolxvsiCN Tejas Stevens Work Phone: [facility] Work Phone: Start: 03-10-2023 End: 36-58-2429Rkvosto encounter procedureMD Tejas Stevens Work Phone: [facility]-Lab [facility] Work Phone: Start: 02-24-2023 End: 74-78-1222thosxsuxgiFfwrwp [employer] Other [employer] Other Start: 98-89-0752Lrtlmamsn encounterTondra Mapus [facility] Coordinated Care ClinicStart: 02-23-2023 End: 85-55-1927Fvvbescatb and management of inpatientMD Tejas Stevens Work Phone: [facility] Work Phone: Start: 02-03-2023 End: 28-26-7176Lcxmily encounter procedurePamela Warren Vascular Surgery Start: 02-03-2023 End: 51-12-6316uusjervavkUA Tejas Stevens Work Phone: [employer] Other Start: 01-20-2023 End: 23-32-7013ebwhwaceriJtihly [employer] Other [employer] Other Start: 07-80-8371Kizwbtefx encounterTondra Mapus [facility] Coordinated Care ClinicStart: 01-13-2023 End: 67-77-4816Jcnbmqhmm to same day surgery centerMD Tejas Stevens Work Phone: [facility]-Interventional Radiology Work Phone: Start: 01-10-2023 End: 94-39-8968lggswunndqAxdnoxt Buehrer Other [employer] Other Start: 75-65-6258UVMX visit new Tonny Bautista [facility] Vascular SurgeryStart: 12-19-2022 End: 91-18-3144ngluqtmjobQfdcyl [employer] Other [employer] Other Start: 80-12-9381Qpvjrddgb encounterTondra Mapus [facility] Coordinated Care ClinicStart: 12-02-2022 End: 37-57-7408qqjnzddoapInwjbx [employer] Other [employer] Other start: 06-34-4181Iyihnujat encounterTondra Mapus [facility] Coordinated Care ClinicStart: 11-06-2022 End: 64-18-3236pbqpxtvcedDcaspv [employer] Other [employer] Other Start: 70-85-3519Sywinkczf encounterTondra Mapus [facility] Coordinated Care ClinicStart: 07-24-2022(DM) DiabetesTondra Gardner Sanitariumus [facility] Coordinated Care ClinicStart: 07-24-2022 End: 06-89-2808girmpobrteLkiqeh [employer] Other [facility] [employer] Other Start: 88-50-6953Hxldcajez encounterTondra MapusFPG EndocrinologyStart: 07-23-2022 End: 49-99-7181ultclshkeaWEPM TAMLYN .Facility:L0Pizgl: 26-01-2567orlbxhxuaaOV TEJAS A NADERERFacility:Y0Lkfkk: 03-27-2022 End: 03-88-8398bwgaehaxasEtscbk [employer] Other [facility] [employer] Other Start: 66-85-4956Wtambspuo encounterTondra MapusFPG EndocrinologyStart: 02-06-2022(PUMP/CGM) Pump / SensorTondra MapusWatauga Medical Center Coordinated Care ClinicStart: 02-06-2022 End: 11-02-8273yohdeijrckAmzuke [employer] Other [facility] [employer] Other Start: 12-04-2021 End: 41-85-0328msfpylfgotHkubjq [employer] Other [employer] Other Start: 35-58-6386Htltttssz encounterTondra Analyus [facility] Coordinated Care ClinicStart: 10-11-2021 End: 36-43-3947ncykvxgcqyIolicm [employer] Other nort [employer] Other Start: 03-00-1881Xtwyzzjsg encounterTondra Mapus [facility] Coordinated Care ClinicStart: 09-27-2021 End: 80-89-4984wknjflnzdiPthwkk [employer] Other nort [employer] Other Start: 56-51-0475Dlyqvczog encounterTondra Mapus [facility] Coordinated Care ClinicStart: 08-23-2021(PUMP/CGM) Pump / SensorTondra MapusFirelands Coordinated Care ClinicStart: 08-23-2021 End: 46-54-1345tcphzixdibOhszkg [employer] Other [facility] [employer] Other Start: 06-22-2021 End: 07-40-7541oxaluwopxrXqaruu [employer] Other [facility] [employer] Other Start: 49-27-5079Ztrumzwnq encounterTondra Mapus [facility] Coordinated Care ClinicStart: 04-03-2021(DM) DiabetesTondra Mapus [facility] Coordinated Care ClinicStart: 04-03-2021 End: 46-76-9405yrgmoikngsHowxfd [employer] Other [facility] [employer] Other Start: 03-30-2021 End: 57-30-3865wwkretuvgoYawzou [employer] Other [facility] [employer] Other Start: 44-26-7613Dbrsuagiq encounterTondra Mapus [facility] Coordinated Care ClinicStart: 18-51-0048Rghovbupl encounterTondra MapusFirelands Coordinated Care ClinicStart: 75-32-2973Qdojqjxfy encounterTondra MapusFirelands Coordinated Care ClinicStart: 02-22-2021(DM) DiabetesTondra MapusFirelands Coordinated Care Clinic Procedures DateProcedureProcedure DetailPerforming ClinicianStart: 02-83-3879BM of head without contrastTejas Stevens MD Work Phone: Start: 50-62-2039IG cervical spine without contrast Tejas Stevens MD Work Phone: Start: 04-05-1287Lcmlo chest X-rayTejas Stevens MD Work Phone: Start: 00-11-6445Fcfyz radiography of pelvisMarc Annette PIERRE Work Phone: Start: 42-50-6504Vkqma X-ray of left femurInduc Annette PIERRE Work Phone: Start: 41-54-7926Tbtir X-ray of left humerusTejas Stevens MD Work Phone: Start: 18-08-3549Ikwum X-ray of left shoulderMartrell Stevens MD Work Phone: Start: 40-56-2840Zbqfp depression screening assessment Licha Medrano MD Work Phone: Start: 81-88-8775YQQT CBC WITH PLATELET NO DIFFERENTIALGeneric External Data ProviderStart: 14-70-3276XLT URINALYSISGeneric External Data ProviderStart: 79-97-3766Ujvmtwicveke ophthalmic imaging retina Jony [facility] JrStart: 10-99-6835ANK URINE T PROTEIN CREAT RATIOGeneric External Data ProviderStart: 05-33-4296Nokfpuooulhr ophthalmic imaging retinaPhilip Farzana JrStart: 03-69-0259SSY URINE T PROTEIN CREAT RATIOGeneric External Data ProviderStart: 65-82-4832BVTT CBC WITH PLATELET NO DIFFERENTIALGeneric External Data ProviderStart: 42-45-9585Mbgunyfvzli injectionPhilip [facility] JrStart: 27-39-6485Hqyrplcxkjh angrph w/multiframe i&r uni/biPhilip Farzana JrStart: 97-50-3401Yopupmyjbtpm njx pharmacologic agt spxPhilip Farzana JrStart: 59-01-8950YQ CHEST WO CONGeneric External Data ProviderStart: 05-04-2024 Bevacizumab injectionPhilip Farzana JrStart: 87-63-9054Vrnlxucrmvxt ophthalmic imaging retinaPhilip [facility] JrStart: 57-98-9723Tlxeji Photos No ChargePhilip Farzana JrStart: 50-18-2758Yqwtjjcwykkm njx pharmacologic agt spxPhilip [facility] Start: 39-93-7202SAR RENAL FUNCTION PANELGeneric External Data ProviderStart: 42-94-6590TPAJ CBC WITH PLATELET NO DIFFERENTIALGeneric External Data Provider Start: 58-12-1294Nxrbic-up visitFollow-upMICHELLE I MURPHYStart: 14-26-8395IR JESÚS PERF SPECT REST STRGeneric External Data ProviderStart: 42-77-4815UM ECHO DOPPLER COMPLETEGeneric External Data ProviderStart: 99-45-3115QKC LIPID PROFILE (FASTING)Generic External Data ProviderStart: 63-66-0754PMZQ LIVER PANELGeneric External Data ProviderStart: 12-29-2023H/O: tracheostomyHistory of tracheostomy Corrine Terrell RNStart: 34-45-7069PZ PULMONARY FUNCTION TESTGeneric External Data ProviderStart: 59-88-7995Xiqms cultureMD Tejas Stevens Work Phone: Start: 94-09-5714Tynnqfihmd radiography of abdomenDO John Ervin Work Phone: Start: 33-66-7814Dwlqjxdtit radiography of abdomenDO John Ervin Work Phone: Start: 07-84-5599Rnhagiokev radiography of abdomenDO John Ervin Work Phone: Start: 53-37-4166Dbnqa chest X-rayDO John Ervin Work Phone: Start: 60-24-8577Yaxqjizaotkzm of transfusion reaction DO John Ervin Work Phone: Start: 54-50-4600OH of abdomen and pelvis without contrastDO John Ervin Work Phone: Start: 59-86-7419II of chest without contrastDO John Ervin Work Phone: Start: 20-60-4747QP of left footDO John Ervin Work Phone: Start: 16-56-0122Jpstbnylnuazi of transfusion reaction DO John Ervin Work Phone: Start: 81-35-0419Rzlldorqfzt Panel (PCR)MD Tejas Stevens Work Phone: Start: 01-32-8108IP John Ervin Work Phone: Start: 08-12-2023 End: 04-71-2255Jlgvb chest X-rayDO John Ervin Work Phone: Start: 32-74-0494Snpty culture for bacteria, including anaerobic screenDO John Ervin Work Phone: Start: 55-15-1862Yuovc cultureDO John Ervin Work Phone: Start: 24-32-9147Yjofr chest X-rayDO John Ervin Work Phone: Start: 08-10-2023 End: 48-20-2892Tgeir chest X-rayDO John Ervin Work Phone: Start: 62-84-1230Gpxpm chest X-rayDO John Ervin Work Phone: Start: 12-61-6512SKG of headDO John Ervin Work Phone: Start: 56-00-2662Hcnge chest X-rayDO John Ervin Work Phone: Start: 49-69-8162Vrxfc chest X-rayDO John Ervin Work Phone: Start: 14-12-6372VA of head without contrastDO John Ervin Work Phone: Start: 69-99-9737Gmvck chest X-rayDO John Ervin Work Phone: Start: 27-02-6606Gxbap chest X-rayDO John Ervin Work Phone: Start: 22-97-1492Jgktg chest X-rayDO John Ervin Work Phone: Start: 43-91-5898Iuvrv chest X-rayDO John Ervin Work Phone: Start: 14-91-3405Rudag cultureDO John Ervin Work Phone: Start: 13-09-7714Xhcyv chest X-rayDO John Ervin Work Phone: Start: 37-32-6685Ydhpo culture for bacteria, including anaerobic screenDO John Ervin Work Phone: Start: 17-54-9872Xwtzucpcbcacq of transfusion reaction DO John Ervin Work Phone: Start: 81-83-1520Xylvxbbohnc Panel (PCR)MD Tejas Stevens Work Phone: Start: 02-75-5069AS John Ervin Work Phone: Start: 26-73-9278Hsfrcb scan of lower limb veinsDO John Ervin Work Phone: Start: 08-01-2023 End: 86-41-4704Kvfnk chest X-rayDO John Ervin Work Phone: Start: 23-84-4653Movyf cultureDO John Ervin Work Phone: Start: 39-00-1927Z-ray of left footDO John Ervin Work Phone: Start: 02-80-1335Sbsthlucvt of toeDO John Ervin Work Phone: Start: 86-75-9465Oxvxj chest X-rayDO John Ervin Work Phone: Start: 75-71-9114Zgahjymmtsba guidanceDO John Ervin Work Phone: Start: 26-80-3646Ynzph cultureDO John Ervin Work Phone: Start: 40-60-7782Kjrkbwsuogikcaf of bilateral kidneys DO John Ervin Work Phone: Start: 49-62-9648IFN of left footDO John Ervin Work Phone: Start: 53-37-9344M-ray of left footDO John Ervin Work Phone: start: 62-27-4591Xdfwbkgemd of toeDO John Ervin Work Phone: Start: 44-87-5462Txyjgrowahbgq of transfusion reaction DO John Ervin Work Phone: Start: 05-53-6535Nolsk volume recorder pneumoplethysmographyDO John Ervin Work Phone: Start: 26-44-7018J-ray of left footDO John Ervin Work Phone: start: 12-37-8642Enocprq microbial cultureDO John Ervin Work Phone: Start: 11-50-2124Gfxjh culture for bacteria, including anaerobic screenDO John Ervin Work Phone: Start: 50-29-1663YVI of left footMD Tejas Naderer Work Phone: Start: 86-57-8184Quuxojuoa of peripherally inserted central catheterMD Tejas Ashwinierer Work Phone: Start: 07-69-9029Yibvjuv microbial cultureMD Tejas Naderer Work Phone: Start: 93-07-8657Gnkcaskqh microbial cultureMD Tejas Naderer Work Phone: Start: 50-89-9504Ldhlpvzgguvad of transfusion reaction MD Tejas Stevens Work Phone: Start: 46-94-5410K-ray of left footMD Tejas Naderer Work Phone: Start: 10-36-0083PnjnbauiimzIC Tejas Naderer Work Phone: [phone]: 35-36-3883ZRC of left footMD Tejas Naderer Work Phone: Start: 29-37-5108Uhlve culture for bacteria, including anaerobic screenMD Tejas Maradiagadaniele Work Phone: Start: 40-79-3939Z-ray of left footMD Tejas Maradiagadaniele Work Phone: Start: 51-51-9341Mjolj limb angiographyMD Tejas Annette Work Phone: Start: 85-34-0211HwieuoxvbyyUmag Naderer MD Work Phone: H/O: tracheostomyHistory of tracheostomyMD Tejas Annette Work Phone: Plan of Treatment DateCare ActivityDetailAuthorStart: 95-42-0911Cyvxpiejt for malignant neoplasm of colonNOHI HealthcareStart: 47-64-4451Hygfq BMI ScreeningAdult BMI Screening [facility] SystemStart: 62-57-7583Putiuwrclz ScreeningDepression Screening [facility] SystemStart: 46-79-9539Syhwtqg ScreeningTobacco Screening [facility] SystemStart: 76-37-1616Loaom BMI ScreeningAdult BMI Screening [facility] SystemStart: 53-96-9560Ftrpsyy ScreeningTobacco Screening [facility] SystemStart: 61-08-0991Pzbcbzxi screeningDiabetes: Retinopathy ScreeningNOHI HealthcareStart: 79-45-8539Hciggnmb screeningDiabetes: Retinopathy ScreeningNOHI HealthcareStart: 43-21-4284Yoaqmbsthv A1c measurementDiabetes: Hemoglobin F9CGLQK HealthcareStart: 05-05-2025 End: 40-97-5761Gnjtfie encounter zytthtejt18/11/2025 2:50 PM EST Office Visit [facility] [address] [address] Rohan Han, DPFranco [address] [facility] [address] [place] [address] [facility] CI PODIATRYStart: 69-12-9346Drxsaymv screening Diabetes: Retinopathy ScreeningNOHI HealthcareStart: 04-98-8406Luosk screening for proteinDiabetes: Urine Protein ScreeningNOHI HealthcareStart: 02-10-2025 End: 61-11-0128Funmydy encounter nxzvtnhui62/18/2025 3:20 PM EDT Office Visit [facility] 112 [facility] [address] [place] [address] Rohan Han DPM 3006 [facility] 5 [place] [address] 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) (Primary Dx); Onychomycosis; Toe pain, right; History of transmetatarsal amputation of left foot (HCC)[facility] CI PODIATRYComment on above: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) (Primary Dx); Onychomycosis; Toe pain, right; History of transmetatarsal amputation of left foot (HCC)Start: 02-01-2025 End: 38-19-7968Uaaoumj encounter ajjskvswj05/09/2025 1:00 PM EDT Office Visit [facility] [address] [place] [address] Tejas Stevens MD [address] [place] [address] [facility] CW FMStart: 75-58-3940Ycnibkosrs A1c measurementDiabetes: Hemoglobin U8BBIQW HealthcareStart: 01-26-2025 End: 91-05-0158Awfdwnh encounter mmxrkhfop50/03/2025 3:15 PM EDT Office Visit [facility] [address] [place] [address] Michael Armando MD [facility] [place] [address] [facility] SurgeonsStart: 15-79-8137Kzdmmjxtb vaccinationNOHI Healthcare Start: 01-20-2025 End: 98-86-0369Dkgiudc encounter xyjcvdeuv94/28/2025 3:30 PM EDT Office Visit [facility] [address] [facility] [address] [place] [address] Rohan Han DPM [address] [address] [facility] CI PODIATRYStart: 01-20-2025 End: 25-75-6790Olzpfogzw specific antigen, diagnosticProstatic specific antigen, diagnostic Lab Routine Prostate cancer ([facility]-H[facility]) Expected: 01/20/2025 (A pproximate), Expires: 2025[facility] Work Phone: Comment on above:Expected: 01/20/2025 (Approximate), Expires: 2025Start: 01-13-2025 End: 37-30-2653Mysnokw encounter feagjemmr51/21/2025 3:20 PM EDT Office Visit [facility] [address] [facility] [address] [place] [address] Rohan Han DPM [address] [address] [facility] PODIATRYStart: 08-20-2025Medicare Annual Wellness (AWV)Medicare Annual Wellness (AWV)[facility] HealthcareStart: 01-04-2025 End: 81-77-3576Ntanhsj encounter lbytopdny97/12/2025 4:00 PM EDT Office Visit [facility] A Department of [address] [place] [address] Licha Medrano MD [address] [place] [address] 101, [address] [place], [place] [address] [facility], A Department of [facility] Start: 73-98-8233Szqwrykv screeningDiabetes: Retinopathy ScreeningNOMS HealthcareStart: 12-14-2024 End: 49-59-4321Aqubhew encounter xeqxsngsv72/22/2025 3:45 PM EDT Office Visit [facility] [address] [place] [address] Tejas Stevens MD [address] [place] [address] [facility]S [facility] FMComment on above:ArrivedStart: 11-04-2024 End: 50-65-4366Ylgceda encounter oqmfitrky02/12/2025 3:40 PM EDT Office Visit [facility] [address] [facility] [address] [place] [address] Rohan Han DPFranco [address] [address] [facility] CI PODIATRYStart: 10-14-2024 End: 42-15-8057Ktdqifg encounter guycgoxvf11/22/2025 2:30 PM EDT Office Visit [facility] [address] [place] [address] Tejas Stevens MD [address] [place] [address] [facility] FMStart: 10-07-2024 End: 93-63-3310Dixapqj encounter nbmyfvhkz16/15/2025 1:10 PM EDT Office Visit [facility] [address] [facility] [address] [place] [address] Rohan Han DPFranco [address] [address] [facility] PODIATRYStart: 17-56-9581Lcpgw screening for proteinDiabetes: Urine Protein ScreeningNOHI HealthcareStart: 07-22-2024 End: 70-78-3119Guhvywb encounter mtpolvwid19/27/2025 4:00 PM EST Office Visit [facility] [address] [facility] [address] [place] [address] Rohan Han DPM [address] [address] [facility] CI PODIATRYStart: 25-25-2993Ycctxsaqqk A1c measurementDiabetes: Hemoglobin K4DJPJK HealthcareStart: 06-10-2024 End: 18-59-6739Csebsyx encounter zycaazkka21/16/2025 4:20 PM EST Office Visit [facility] [address] [facility] [address] [place] [address] Rohan Han DPM [address] [address] [facility] PODIATRYStart: 05-27-2024 End: 57-61-8952Fsoyigv encounter vtvlycaax99/02/2025 1:40 PM EST Office Visit [facility] [address] [facility] [address] [place] [address] Rohan Han DPM [address] [address] [facility] CI PODIATRYStart: 05-20-2024 End: 82-01-8952Nutdzrq encounter /26/2024 3:10 PM EST Office Visit [facility] [address] [address] Rohan Han DPM [address] [address] [facility] CI PODIATRYStart: 14-83-6516Fjinj BMI Screening Adult BMI ScreeningProToledo Hospital SystemStart: 78-72-2811Duwjsjj Screening Tobacco ScreeningProToledo Hospital SystemStart: 04-15-2024 End: 48-91-6781Vcdcbgl encounter procedureNOMS CWM FMComment on above:Arrived Start: 03-11-2024 End: 92-19-2418Ktjhyub encounter procedureNOMS CI PODIATRYComment on above: Xerosis cutis (Primary Dx); History of transmetatarsal amputation of left foot (HCC) ([facility]/HCC); DM type 1 with diabetic peripheral neuropathy ([facility]/HCC); Onychomycosis; Toe pain, rightStart: 58-79-6478Deebytyxc vaccinationNOHI HealthcareStart: 01-21-2024 End: 34-49-5036Hehndhv encounter kfmiauyqa05/28/2024 2:15 PM EDT Office Visit [facility] [address] [place] [address] [place] [address] Snehal Vargas PA [address] [place] [id number] [facility] SurgeonsStart: 24-27-6085Hhhfzgsrnr A1c measurementDiabetes: Hemoglobin W0VYQZX HealthcareStart: 12-17-2023 End: 34-97-4815Zmrrgma encounter acldxtyzn28/24/2024 2:15 PM EDT Office Visit [facility] [address] [place] [address] [place] [address] Snehal Vargas PA [address] [place] [address] [facility]geonsStart: 22-37-0869Vrnfgwa referralSt. Elizabeth Hospital Work Phone: Start: 05-60-2745FlezfkkmoKettering Health Miamisburg Start: 36-77-9865PxsitcqqoKnox Community Hospitaltart: 42-06-9067Uxagz culture [facility]tart: 70-29-4550Ugczgvpf to infectious diseases physicianKnox Community Hospitaltart: 16-31-6772IgtrvzdpgKnox Community Hospitaltart: 14-69-3696Ibnjjzgu to podiatristKnox Community Hospitaltart: 26-84-1840Vzhbabmvq culture of sputumKnox Community Hospitaltart: 79-71-3417Ahayrxoj to ear, nose and throat surgeonHolzer Hospital CenterStart: 59-97-9696Wrvzkcwc to neurologistHolzer Hospital CenterStart: 42-64-9278Cvdiry Trachea to Cutaneous with Tracheostomy Device, Open ApproachHolzer Hospital CenterStart: 13-83-9727Xcqcwdxlrxu of Urinary Filtration, Intermittent, Less than 6 Hours Per DayHolzer Hospital CenterStart: 81-76-4128Hvawnwcsrsg Ventilation, Greater than 96 Consecutive HoursHolzer Hospital CenterStart: 00-31-9876HuqdtgyxuHolzer Hospital CenterStart: 08-01-2023 End: 72-11-7862OzdhcdmbuaiyHheowdbgn Regional Medical CenterStart: 08-01-2023 Referral to nephrologOhioHealth Berger Hospital CenterStart: 07-30-2023 Glaucoma screeningDiabetes: Retinopathy ScreeningNOHI HealthcareStart: 05-91-6519ExfgyboebHolzer Hospital CenterStart: 94-94-1714AyrzbgybcHolzer Hospital CenterStart: 92-73-9696DkqsmapgyHolzer Hospital CenterStart: 99-73-4244OyucqyhwbHolzer Hospital CenterStart: 32-83-9562Jlslmddm to vascular surgeonHolzer Hospital CenterStart: 58-77-9125Lkwlcazz to nephrologOhioHealth Berger Hospital CenterStart: 57-12-1390Ecifltbd to rehabilitation [facility] CenterStart: 07-13-2023 [facility] CenterStart: 25-45-0671ZbsyojajsHolzer Hospital CenterStart: 90-03-2120FtjfkalaaHolzer Hospital CenterStart: 07-11-2023 Referral to vascular surgeonHolzer Hospital CenterStart: 07-11-2023 Pulse volume recorder pneumoplethysmographyUS arterial pvr rest [facility] CenterStart: 47-84-2555LzcnzprmcHolzer Hospital CenterStart: 69-35-2782Ogvyqasd to infectious diseases [facility] CenterStart: 05-45-4790MWH of left footMR foot LT wo [facility] CenterStart: 78-67-7212Yatqvhnb to podiatristHolzer Hospital CenterStart: 32-19-4572Ybekpzhr admissionKnox Community Hospitaltart: 78-38-9362OkppzpqncKnox Community Hospitaltart: 07-10-2023 End: 88-23-6630Ojpbsnn encounter excjxwold93/15/2024 4:00 PM EST Office Visit [facility] [address] [facility] [address] [place] [address] Rohan Han DPM [address] [address] [facility] CI PODIATRYStart: 13-50-8331Hjvibpdd identified in Blood by CultureKnox Community Hospitaltart: 77-03-5564Qtrxfgtojt at Left Foot, Partial 1st Ray, Open ApproachKettering Health Miamisburg Start: 19-55-2820Ipnoxhjmlk at Left Foot, Partial 2nd Ray, Open Approach [facility]tart: 06-74-9961Dkerkfbpwc at Left Foot, Partial 3rd Ray, Open ApproachKnox Community Hospitaltart: 07-10-2023 Detachment at Left Foot, Partial 4th Ray, Open ApproachKnox Community Hospitaltart: 45-46-1368Bswfjmktnb at Left Foot, Partial 5th Ray, Open [facility]tering Health Hamiltontart: 37-72-7609Zopsnvxbq of Infusion Device into Upper Vein, Percutaneous ApproachKettering Health Miamisburg Start: 35-49-6886Shplstjzphf Wound CultureSuperficial Wound CultureKnox Community Hospitaltart: 07-09-2023 End: 23-70-8171Dtanywx encounter jjmazocze73/14/2024 1:50 PM EST Office Visit [facility] [address] [place] [address] Rohan Han DPM [address] [address] [facility] SC PODStart: 07-02-2023 End: 66-68-8318Gccpxdf encounter pvhkjujlo79/07/2024 8:00 AM EST Procedure Visit [facility] Rohan Han DPM [address] [address] [facility] EXT DEPStart: 07-30-0846WmhknzzaqKnox Community Hospitaltart: 93-54-9089Qzpxzwuq to vascular surgeonKnox Community Hospitaltart: 61-37-5178Kjbgixda to infectious diseases physicianKnox Community Hospitaltart: 24-95-1363Uydlkxpp to podiatristKnox Community Hospitaltart: 44-21-8850Tgrhbnlc admission [facility]tart: 82-56-1189NeqoikjgmKnox Community Hospitaltart: 39-13-5727Mujkvozd identified in Blood by CultureKnox Community Hospitaltart: 67-92-7357Uoflbgpjey at Left Foot, Partial 5th Ray, Open ApproachDetachment at Left Foot, Partial 5th Ray, Open ApproachKnox Community Hospitaltart: 77-09-7454Ijufjfldd of Infusion Device into Superior Vena Cava, Percutaneous ApproachInsertion of Infusion Device into Superior Vena Cava, Percutaneous ApproachKnox Community Hospitaltart: 08-72-7471Ujmjusoxb vaccinationTIMPANOGOS REGIONAL HOSPITAL HealthcareStart: 35-96-3593VqzsqnbspKnox Community Hospitaltart: 97-99-8656Jblhbfkpb aortic aneurysm screening Abdominal Aortic Aneurysm (AAA) ScreenFormerly Albemarle Hospitaltart: 12-20-2016 Fall Risk ScreeningFall Risk ScreeningFormerly [facility] Hospitaltart: 12-20-1970 Administration of varicella zoster vaccineZoster (Shingles) Vaccine (1 of 2) [facility] SystemStart: 87-50-1610KOuD,Tdap and Td Vaccines (1 - Tdap) DTaP,Tdap and Td Vaccines (1 - Tdap)[facility] SystemStart: 12-20-1970 Pneumococcal Vaccine: 65+ Years (1 of 2 - PCV)Pneumococcal Vaccine: 65+ Years (1 of 2 - PCV)[facility] HealthcareStart: 82-27-4956Rpyjb screening for proteinDiabetes: Urine Protein ScreeningSaint John's Breech Regional Medical CenterStart: 17-81-4295Arwqc BMI Follow Up Plan Adult BMI Follow Up PlanAshtabula General Hospital SystemStart: 98-82-9130Ygirfktc foot examinationDiabetic Foot ExamFormerly [facility] Hospitaltart: 90-76-9746Qdfotaoldl ScreeningDepression ScreeningFormerly [facility] Hospitaltart: 25-68-9202Uvjxhtjk screeningDiabetes: Retinopathy ScreeningTIMPANOGOS REGIONAL HOSPITAL HealthcareStart: 12-20-1957 Pneumococcal Vaccine: 65+ Years (1 - PCV)Pneumococcal Vaccine: 65+ Years (1 - PCV)[facility] HealthcareStart: 68-26-9380Vosqnohdtuvw Vaccine: 65+ Years (1 of 2 - PCV)Pneumococcal Vaccine: 65+ Years (1 of 2 - PCV)[facility] HealthcareStart: 80-37-1135Srqltohf screeningDiabetic Ophthalmology ExamMadison Health Start: 05-48-4831Onvsntmqpd A1c measurementDiabetes: Hemoglobin F8IQNID HealthcareStart: 07-28-1952Medicare Annual Wellness (AWV)Medicare Annual Wellness (AWV)[facility] HealthcareStart: 07-28-1952Medicare Annual Wellness Visit Medicare Annual Wellness VisitFormerly [facility] Hospitaltart: 18-56-2925Kvebacgla for malignant neoplasm of colonTIMPANOGOS REGIONAL HOSPITAL HealthcareStart: 71-45-2540Esyegn Use: CardiovascularStatin Use: CardiovascularFormerly [facility]emarle Hospitaltart: 1950 Statin Use: DiabeticStatin Use: DiabeticFormerly [facility] Hospitaltart: 1950 Tobacco CounselingTobacco CounselingMadison HealthAnion gap measurement [facility] Health MiamisburgBacteria identified in Unspecified specimen by Aerobe cultureKettering Health MiamisburgBasophils [#/volume] in Blood by Automated [facility] HospitalBasophils/100 leukocytes in Blood by Automated [facility] HospitalComprehensive metabolic 1999 panel - Serum or PlasmaKettering Health MiamisburgComprehensive metabolic 2000 panel - Serum or PlasmaKettering Health [facility]burg Eosinophils/100 leukocytes in Blood by Automated [facility] HospitalErythrocyte distribution width [Ratio] by Automated [facility] HospitalErythrocytes [#/volume] in OhioHealthGlucose measurement estimated from glycated hemoglobinKettering Health MiamisburgHematocrit [Volume Fraction] of OhioHealthHemoglobin [Mass/volume] in [facility] Immunofixation for UrineKettering Health MiamisburgImmunofixation for UrineKettering Health MiamisburgLeukocytes [#/volume] corrected for nucleated erythrocytes in Blood by Automated counKettering Health MiamisburgLeukocytes [#/volume] in BloodKettering Health MiamisburgLymphocytes [#/volume] in Blood by Automated [facility] Lymphocytes/100 leukocytes in Blood by Automated [facility] HospitalMCH [Entitic mass] by Automated countKettering Health Miamisburg MCHC [Mass/volume] by Automated countKettering Health MiamisburgMCV [Entitic volume] by Automated [facility] HospitalMonocytes [#/volume] in Blood by Automated [facility] Monocytes/100 leukocytes in Blood by Automated [facility] HospitalNeutrophils [#/volume] in Blood by Automated [facility] HospitalNeutrophils/100 leukocytes in Blood by Automated [facility] HospitalNucleated erythrocytes [Presence] in Blood by Automated [facility] HospitalPatient EducationPremier Health Medical Ctr Work Phone: Patient referralHolzer Hospital Ctr Work Phone: Platelet mean volume [Entitic volume] in Blood by Automated [facility] HospitalPlatelets [#/volume] in Blood [facility] Health MiamisburgProtein [Mass/time] in 24 hour UrineKettering Health MiamisburgRenal function 1999 panel - Serum or [facility] CenterRenal function 1999 panel - Serum or [facility] CenterRenal function 1999 panel - Serum or [facility] CenterRenal function 1999 panel - Serum or [facility] CenterRenal function 1999 panel - Serum or [facility] CenterRenal function 1999 panel - Serum or [facility] Payers DatePayer CategoryPayerPolicy [id number] 2025Medicare [place] Member Subscriber Plan / Payer (Effective 2024-Present) Name: Chelsea Diego JrTracy Relation to Subscriber: Self Name: Chelsea Diego Payer ID: Not on file Type: Not on file Address: [address] [id number] 2025Medicare [id number] 2024Medicare (Managed Care) [id number] [id number] [id number] [id number] [id number] 2.840.1.605893.17[id number] 2.16840.1.745590.3.579.2.5976-05-0501Gnlnvsw5955565 2.16840.1.047414.3.579.2.40664-36-6924Psfxllq93836510 2.840.1.294419.3.579.2.888577-58-0117Sveawwj158308 2.16840.1.760587.3.579.2.860143-09-5443Mupdrlb6168420 2.16840.1.880191.3.579.2.062113-40-4049Qrjcjyk9022586 2.16840.1.562369.3.579.2.937246-94-1005Gszmgqj3295211 2.16840.1.660487.3.579.2.534927-40-3617Yvwbxgq4766355 2.16840.1.358588.3.579.2.184881-99-6611Erlyzrf5416895 2.840.1.578644.3.579.2.7[id number] 2.840.1.905189.3.579.2.005161-62-7401Alvnkzb84426680 2.840.1.953307.3.579.2.975105-97-8401Hblawnj073761162 2.840.1.030854.3.579.2.395636-23-1500Ucrnljo767698277 2.840.1.066809.3.579.2.893592-31-6373Ycmxlbe747564683 2.840.1.126741.3.579.2.153606-85-2912Porhazp14459588 2.16840.1.619391.3.579.2.461639-52-5541Pldwcot66282399 2.16840.1.890373.3.579.2.700555-67-0984Ydqvxyp33787768 2.16840.1.257089.3.579.2.145060-16-5864Ggycvfo4873205 2.16840.1.945137.3.579.2.013730-99-9797Xcaqwmo7333835 2.0.1.185377.3.579.2.235420-14-2842Qzgmimf2997952 2..0.1.816011.3.579.2.501093-72-8877Xxpmtio1202633 2.0.1.793[id number] 1p9vl01d-6nqy-81f9-139f-[id number] 33gj2469-3265-9g3t-[id number] g614kgd0-7162-6p41-iw59-[id number] 14625958-1q7o-0558-biev-[id number] 2.840.1.312298.3.579.2.531 Social History DateTypeDetailFacilityUnknown if ever smokedRose [facility] Other Start: 06-26-2023 End: 42-64-2334Efa [facility]igned At [facility] Other Start: 79-34-4628[facility] 36-73-6812Xnamolc smoking status [facility]Smoker (finding)[facility] End: 42-01-5466Juudvlv smoking status NHISCurrent Light tobacco smokerKnox Community Hospitaltart: 06-06-2022 End: 79-49-8426Qnbruwq smoking status NHISOccasional tobacco smokerProMedica Health SystemHistory of tobacco useCigar SmokerNOMS HealthcareStart: 02-13-2023 End: 97-35-4454Nflbqgb use and exposureUser of smokeless tobaccoNOMS Healthcare Start: 06-26-2023 End: 15-89-0046Vckfmeg intakeEx-drinker (finding)NOMS HealthcareStart: 06-26-2023 End: 40-62-5137Kbwugol of Social functionNOMS HealthcareStart: 59-08-5425Dthkusy Commentcaffeine yes bowling alley floors installer: chocolate, coffeeNOMS HealthcareStart: 83-53-5497Jeh Assigned At BirthNot on fileNOMS HealthcareStart: 75-05-2705Uilzton Comment caffeine yes type: chocolate, coffeeNOMS HealthcareStart: 07-10-2023 End: 96-80-4734Yrhjurw smoking status NHISEx-smoker (finding)[facility] Hospitaltart: 12-27-2014 End: 54-21-7118CteThqf (finding)[facility] Hospitaltart: 38-61-8477Dfwghdf use and exposureSmokeless tobacco non-userAshtabula General Hospital SystemStart: 65-05-3835Halxs[place] InstabilityUnknowLakeHealth [facility] Medical [facility] SystemStart: 49-49-1677Wgrsxoc Comment2 per dayAshtabula General Hospital SystemHas the electric, gas, oil, or water company threatened to shut off services in your home in past 12Mo [facility] SystemStart: 74-34-6413Pyjccgs smoking status NHISSmokes tobacco daily (finding)[facility]burgNEGATED: Highlighted row Start: NINFHistory of tobacco usePassive smokerSaint John's Breech [facility] Center Medical Equipment Procedure CodeEquipment CodeEquipment Original TextEquipment IdentifierDates Wound debridement()[id number] FDAStart: 02-26-2023 Fluoroscopic guidance for insertion of tunnelled dialysis catheter +[id number] FDAStart: [id number], [id number] Start: 11-93-0582Iyany Sugar Diagnostic (Onetouch Ultra Test) stripStart: 63-28-6008Uusno Sugar Diagnostic (Onetouch Ultra Test) stripStart: 08-12-2024 Blood Sugar Diagnostic (Onetouch Ultra Test) stripStart: 88-61-9961Qphqy Sugar Diagnostic (Onetouch Ultra Test) stripStart: 18-72-9056Dvhu Iol Ultrasert 18.0d - [id number] - [id number]: 19-60-2745Nbcc Iol Ultrasert 18.0d - [id number] - [id number]_[id number]: 83-40-1368Jxsft Sugar Diagnostic (Onetouch Ultra Test) stripStart: 59-41-0402Hnyww Sugar Diagnostic (Onetouch Ultra Test) stripStart: 11-77-3044Ngqel Sugar Diagnostic (Onetouch Ultra Test) stripStart: 11-54-7587Dfbyd Sugar Diagnostic (Onetouch Ultra Test) stripStart: 70-46-1049Qczyblr (Onetouch Delica Plus Lancet) 30 gauge miscStart: 01-13-2025 Pen Needle, Diabetic (Novofine 32) 32 gauge x 1/4 needleStart: 66-44-4379Kolqb Sugar Diagnostic (Onetouch Ultra Test) stripStart: 01-05-2024 End: 39-68-2776Jgwjs Sugar Diagnostic (Onetouch Ultra Test) stripStart: 07-69-9918Vscyqks (Onetouch Delica Plus Lancet) 30 gauge miscStart: 01-13-2025 Pen Needle, Diabetic (Novofine 32) 32 gauge x 1/4 needleStart: 14-98-1451Kviry Sugar Diagnostic (Onetouch Ultra Test) stripStart: 01-05-2024 End: 11-59-2945Mqzjd Sugar Diagnostic (Onetouch Ultra Test) stripStart: 53-89-2181Umfzvdn (Onetouch Delica Plus Lancet) 30 gauge miscStart: 01-13-2025 Pen Needle, Diabetic (Novofine 32) 32 gauge x 1/4 needleStart: 25-64-3253Lklye Sugar Diagnostic (Onetouch Ultra Test) stripStart: 01-05-2024 End: 61-57-2360Oobgk Sugar Diagnostic (Onetouch Ultra Test) stripStart: 69-58-1253Dpewejm (Onetouch Delica Plus Lancet) 30 gauge miscStart: 01-13-2025 Pen Needle, Diabetic (Novofine 32) 32 gauge x 1/4 needleStart: 50-51-2547Sckic Sugar Diagnostic (Onetouch Ultra Test) stripStart: 01-05-2024 End: 44-71-6446Sjxwq Sugar Diagnostic (Onetouch Ultra Test) stripStart: 05-29-8329Yirinxm (Onetouch Delica Plus Lancet) 30 gauge miscStart: 01-13-2025 Pen Needle, Diabetic (Novofine 32) 32 gauge x 1/4 needleStart: 89-52-5495Wpaml Sugar Diagnostic (Onetouch Ultra Test) stripStart: 01-05-2024 End: 01-13-2025 Goals DatePatient GoalDesired Activity/StatePersonal health goalComment on above: Evaluation of progress towards goal: safe dischargePersonal health goal Functional Status VzshNahfenibnqMuptexWgetilpe75-60-1880Ymzfktj Health Questionnaire 2 item (PHQ- 2) [Reported][facility] Medical CenterMafxztkqlj92-05-1267Wbu difficult have these problems made it for you to do your work, take care of things at home, or get along with other people?Not difficult at all 01/13/2024 1:00 PM Lili Rowland MA Not difficult at [facility] HospitalWplutnrkeo98-54-4546Ijmmiqmrpx statusPatient at [facility] Work Phone: [phone]qhnilbo statusPatient at [facility] Work Phone: [phone]qhzykpv statusDressing [facility] at [facility] Work Phone: [phone]nj statusPatient at [facility] Work Phone: [facility] Mental Status KgkvAecdqblacgQslaegNugmxoqd14-51-0406Chlpomovj functionPatient at [facility] Work Phone: [phone]sstyru functionPatient at [facility] Work Phone: [phone]sxl functionCognitive Status [facility] Work Phone: [phone] functionCognitive Status Patient at [facility] Work Phone: Clinical Notes 01-24-2013 to 03-11-2025 Note Date & TlrxFyelJwokbplm24-33-[address] [facility] [place] [address] CT Scan Report Signed Patient: Chelsea Diego JR MR#: [id number] : 1950 Acct:[id number] Age/Sex: 74 / M ADM Date: 5 Loc: ER Room: Type: [facility] ER Attending Dr: Copies to: LELAND Templeton MD, RES~ Ordering Provider: Kodi Lopes MD, RES Date of Service: 03/11/25 CT/CT cervical spine wo con: fall with worsening pain CT CERVICAL SPINE WITHOUT CONTRAST: CLINICAL HISTORY: Fall 6 weeks ago, chronic neck pain COMPARISON: None TECHNIQUE: Spiral axial unenhanced images were obtained through the cervical spine. Sagittal, coronal reconstructions were also reviewed. This CT exam was performed using one or more following dose reduction techniques: Automated exposure control, adjustment of the mA and/or kV according to patientsize, or use of iterative reconstruction technique. FINDINGS: Straightening and mild reversal normal cervical lordosis. Anterolisthesis C4 and C5 2 mm.Severe disc space disease C5-6 and moderate severe disc disease C6-T1. Moderate severe multilevel facet arthropathy. No evidence of acute fracture. No traumatic malalignment. No Prevertebral soft tiss ues thickening. There are vascular calcifications. There are enlarged right level 2/3 lymph nodes measuring up to [address]/CT cervical spine wo con IMPRESSION: NO CERVICAL SPINE FRACTURE MULTILEVEL DEGENERATIVE CHANGE. ENLARGED RIGHT 2/3 ADENOPATHY IDENTIFIED. PLEASE CORRELATE WITH CLINICAL EXAM FINDINGS. Impression dictated by: Vikas Andrea M.D. 03/11/2025 7:26 PM Dictation Location: RADIO-PC-29 Transcribed By: KHADIJAH 03/11/251925 Dictated By: Vikas Andrea MD 03/11/251921 Signed By: 03/11/251925 [facility] Work Phone: 1([phone] Radiology Diagnostic [facility] [place] [address] [place] [address] CT Scan Report Signed Patient: Chelsea Diego JR MR#: [id number] : 1950 Acct:[id number] Age/Sex: 74 / M ADM Date: 5 Loc: ER Room: Type: [facility] ER Attending Dr: Copies to: Luna Joyce APRN~ Ordering Provider: Luna Joyce APRN Date of Service: 03/11/25 CT/CT head/brain wo con: . CT BRAIN WITHOUT CONTRAST: CLINICAL HISTORY: Fall 6 weeks ago, chronic neck pain COMPARISON: None TECHNIQUE: Contiguous axial unenhanced images were obtained through the brain. This CT exam was performed using one or more following dose reduction techniques: Automated exposure control, adjustmentof the mA and/or kV accordingto patient size, or use of iterative reconstruction technique. FINDINGS: There is no evidence of midline shift, intra or extra-axial fluid collection, hemorrhage or CT evidence of acute large vascular distribution stroke. Central involutional changes and minor microvascular change noted. Intracranial vascular calcifications. Cataract surgery. Mild sinus disease. Right ethmoid sinus osteoma. No calvarial fracture CT/CT head/brain wo con IMPRESSION: NO ACUTE INTRACRANIAL ABNORMALITY. Impression dictated by: Vikas Andrea M.D. 03/11/2025 7:05 PM Dictation Location: RADIO-PC-29 Transcribed By: KHADIJAH 03/11/251904 Dictated By: Vikas Andrea MD 03/11/251902 Signed By: 03/11/251904 [facility] Work Phone: 1([phone] 302-251009-18-2025 History of Present illness Narrative* Rohan Han, TOY - 02/10/2025 3:20 PM EDT Patient: Chelsea Diego Jr : 1950 PCP: Tejas Stevens MD SUBJECTIVE This is a 74 y.o. male that presents today with a CC of elongated, thick nails. Pt states nails have been elongated and thick for many years and cause pain with ambulation in shoegear. Patient is a type 2 diabetic with controlled sugars and had history of left TMA in the recent past.Patient had 2 months of hospitalization with ICU stay including issue with sepsis pneumonia and end-stage renal disease. Pt has hx of xerosis to feet Patient was to receive diabetic shoes in the past. Patient has had a CVA in the past Allergies: Allergies Allergen Reactions Cefepime Metformin Other Reaction(s): Other (See Comments) Kidney pain Lisinopril Rash Past Medical History: Past Medical History: Diagnosis Date Alcoholism ([facility]) Arthritis Broken ankle, right Broken collarbone Broken neck ([facility]) Bunion Cataract Compression fracture of C-spine ([facility]) 2010 T10-T12 DDD (degenerative disc disease), cervical DDD (degenerative disc disease), lumbar Depression Diabetic ulcer of left midfoot associated with type 2 diabetes mellitus, limited to breakdown of skin ([facility]) DM (diabetes mellitus) ([facility]) Elevated PSA Foot ulcer ([facility]) GERD (gastroesophageal reflux disease) History of elevated prostate specific antigen (PSA) History of medical problems 2010 degenrative change mid/lower thoracic spine Hx of shoulder surgery 2003 Hypertension Lumbar spondylolysis Neuropathy in diabetes ([facility]) Ocular palsy of right eye Osteomyelitis of left foot, unspecified type ([facility]) Prostate cancer ([facility]) PSA elevation Pulmonary arterial hypertension ([facility]) Substance abuse ([facility]) Type 2 diabetes mellitus with diabetic polyneuropathy, with long-term current use of insulin ([facility]) Vitamin D deficiency Weak urinary stream Medications: Current Outpatient Medications: amLODIPine (Norvasc) 10 MG tablet, TAKE 1 TABLET BY MOUTH DAILY, Disp: 30 tablet, Rfl: 11 aspirin 81 MG EC tablet, Take 81 mg by mouth Daily, Disp: , Rfl: atorvastatin (Lipitor) 40 MG tablet, Take 40 mg by mouth at bedtime., Disp: , Rfl: bumetanide (Bumex) 2 MG tablet, TAKE 1 TABLET BY MOUTH DAILY, Disp: 30 tablet, Rfl: 3 cholecalciferol (Vitamin D-3) 50 MCG (1999) tablet, 1 (one) time each day at the same time, Disp: , Rfl: clopidogrel (Plavix) 75 MG tablet, Take 1 tablet (75 mg) by mouth Daily, Disp: 90 tablet, Rfl: 3 Drug [facility] Pentips 31G X 6 MM mis, USE DISPOSABLE PEN TIP TWICE DAILY DIRECTED, Disp: 100 each, Rfl: 11 famotidine (Pepcid) 40 MG tablet, 40 mg in the morning and 40 mg before bedtime., Disp: , Rfl: FeroSul 325 (65 Fe) MG tablet, Take 1 tablet by mouth in the morning and 1 tablet before bedtime., Disp: , Rfl: gabapentin (Neurontin) 300 MG capsule, Take 1 capsule (300 mg) by mouth in the morning and 1 capsule (300 mg) in the evening and 1 capsule (300 mg) before bedtime., Disp: 90 capsule, Rfl: 2 hydrALAZINE (Apresoline) 25 MG tablet, Take 25 mg by mouth in the morning and 25 mg in the evening and 25 mg before bedtime., Disp: , Rfl: hydrOXYzine HCl (Atarax) 25 MG tablet, Take 1 tablet (25 mg) by mouth 4 (four) times a day as needed for anxiety, Disp: 60 tablet, Rfl: 2 insulin glargine (Basaglar KwikPen) 100 UNIT/ML pen, Inject under the skin at bedtime, Disp: , Rfl: insulin lispro protamine-insulin lispro (HumaLOG MIX 50/50 KWIKPEN) (50-50) 100 UNIT/ML injection, Inject under the skin 2 (two) times a day with meals, Disp: , Rfl: Lancets 28G mis, Test daily, Disp: 100 each, Rfl: 3 melatonin 3 MG tablet, Take 6 mg by mouth at bedtime, Disp: , Rfl: metoprolol succinate XL (Toprol-XL) 50 MG 24 hr tablet, Take 1 tablet (50 mg) by mouth Daily, Disp:90 tablet, Rfl: 3 sertraline (Zoloft) 100 MG tablet, Take 1 tablet (100 mg) by mouth Daily, Disp: 90 tablet, Rfl: 3 sevelamer carbonate (Renvela) 800 MG tablet, TAKE 2 TABLETS BY MOUTH THREE TIMES DAILY (IN THE MORNING, at noon, and IN THE EVENING) WITH MEALS, Disp: 180 tablet, Rfl: 5 traZODone (Desyrel) 100 MG tablet, Take 1 tablet (100 mg) by mouth at bedtime, Disp: 90 tablet, Rfl: 3 Social History: Social History Socioeconomic History Marital status: Spouse name: Not on file Number of children: Not on file Years of education: Not on file Highest education level: Not on file Occupational History Not on file Tobacco Use Smoking status: Former Types: Cigars Passive exposure: Never Smokeless tobacco: Current Vaping Use Vaping status: Every Day Substance and Sexual Activity Alcohol use: Not Currently Comment: caffeine yes type: chocolate, coffee Drug use: Not Currently Types: Crack cocaine, Cocaine, Hashish, Marijuana, Mescaline, Opium, Oxycodone Sexual activity: Not Currently Partners: Female control/protection: Abstinence, None Other Topics Concern Not on file Social History Narrative Not on file Social Drivers of Health Financial Resource Strain: Not on file Food Insecurity: No Food Insecurity (01/04/2025) [facility] [employer] Hunger Screening Within the past 12 months we worried whether our food would run out before we got money to buy more.: Never True Within the past 12 months the food we bought just didn't last and we didn't have money to get more.: Never True Transportation Needs: No Transportation Needs (11/19/2024) [facility] [employer] PRAPARE - Transportation Lack of Transportation (Medical): No Lack of Transportation (Non-Medical): No Physical Activity: Not on file Stress: Not on file Social Connections: Not on file Intimate Partner Violence: Unknown (07/17/2023) Received from [facility] [place] Safety & Environment Fear of Current or Ex-Partner: Not on file Emotionally Abused: Not on file Physically Abused: Not on file Sexually Abused: Not on file Physically or Sexually Abused: Not on file Housing Stability: Low Risk (11/19/2024) Received from [facility] Housing Instability Are you worried or concerned that in the next two months you may not have stable housing that you own, rent or stay in as a part of a household?: No ROS: General: denies fever, chills, fatigue, malaise OBJECTIVE LE EXAM: DERM: Elongated thick yellow crumbly nails digits 1 through 5 of the right foot with left TMA site intact with greatly diminished dry and scaly skin To bilateral feet noted Plus one pitting edema to bilateral ankles VASC: Positive DP and negative PT pedal pulses NEURO: 5.07 [place] [employer] monofilament test diminished to digits and forefoot bilaterally 125Hz tuning fork diminished bilaterally ORTHO: Positive pain on palpation to toenails of the right 1,2,3,4,5 toes Digital deformities with flexion deformities right 1 through 5 digits ASSESSMENT 1. 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) 2. Onychomycosis 3. Toe pain, right 4. History of transmetatarsal amputation of left foot (HCC) PLAN Discussed proper foot care with patient today. Debride nails in length and thickness digits 1 through 5 of the left foot Patient educated today on proper diabetic foot care including monitoring feet daily for any signs of infection openings in the skin or irregularities to both feet. Patient had a diabetic neurologicalexam today to both their feet and discussed proper shoe gear. patient to continue with hydrating creams to feet twice daily Rohan Han DPM documented in this encounterSaint John's B[facility] Medical CenterJcsdqefrrr88-88-1227 Evaluation note* Diagnosis Onset Date Resolution Status Admit Date BMI 27.0-27.9,adult acuteAugust 2024 3:39pmChronic kidney disease (CKD) stage G4/A3, severely decreased glomerularacuteAugust 2024 3:39pmDietary counseling and surveillanceacuteAugust 2024 3:39pmHTN (hypertension)acuteAugust 2024 3:39pmHyperlipemiaacuteAugust 2024 3:60hjX4FA (type 2 diabetes mellitus)acuteAugust 2024 3:39pm [facility] Work Phone: 1([phone]) 390-890408-21-2025 Evaluation note* Diagnosis Onset Date Resolution Status Admit Date BMI 27.0-27.9,adult acuteAugust 2024 3:39pmChronic kidney disease (CKD) stage G4/A3, severely decreased glomerularacuteAugust 2024 3:39pmDietary counseling and surveillanceacuteAugust 2024 3:39pmHTN (hypertension)acuteAugust 2024 3:39pmHyperlipemiaacuteAugust 2024 3:79qsW8SR (type 2 diabetes mellitus)acuteAugust 2024 3:39pmAnemiaacuteAugust 2024 3:12pmChronic kidney disease, stage IV (severe)acuteAugust 2024 3:12pmDiabetic nephropathy associated with type 2 diabetes mellitusacuteAugust 2024 3:12pmHyperkalemiaacuteAugust 2024 3:12pmHyperphosphatemiaacuteAugust 2024 3:12pmHyperuricemiaacuteAugust 2024 3:12pmPrimary hypertension acuteAugust 2024 3:12pmVitamin D deficiencyacuteAugust 2024 3:12pm [facility] Work Phone: 1([phone]) 295-201508-21-2025 Evaluation note* Diagnosis Onset Date Resolution Status Admit Date Chronic kidney disease (CKD) stage G4/A3 , severely decreased glomerular acuteAugust 2024 3:39pmBMI 27.0-27.9,adultinactiveAugust 2024 3:39pm Dietary counseling and surveillanceinactiveAugust 2024 3:39pmHTN (hypertension)inactiveAut 2024 3:39pmHyperlipemiainactiveAugust 2024 3:48wxO3NV (type 2 diabetes mellitus)inactiveAugust 2024 3:39pm Diabetic nephropathy associated with type 2 diabetes mellitusacuteAugust 2024 3:12pmHyperkalemiaacuteAugust 2024 3:12pmHyperphosphatemiaacuteAugust 2024 3:12pmHyperuricemiaacuteAugust 2024 3:12pmVitamin D deficiency acuteAugust 2024 3:12pmAnemiainactiveAugust 2024 3:12pmChronic kidney disease, stage IV (severe)inactiveAugust 2024 3:12pmPrimary hypertensioninactiveAugust 2024 3:12pmBenign essential hypertensionacute February 01, 2025 1:00pmCerebrovascular diseaseacuteSept2024 1:00pm Chronic heart failure with preserved ejection fraction (HFpEF)acuteSept2024 1:00pmChronic kidney disease (CKD) stage G4/A3, severely decreased glomerularacuteSept2024 1:00pmDDD (degenerative disc disease), cervicalacuteSept2024 1:00pmDDD (degenerative disc disease), lumbar acuteSept2024 1:00pmGAD (generalized anxiety disorder)acuteSept2024 1:00pmMajor depressive disorder, recurrent, moderateacuteSept2024 1:00pmPrimary insomniaacuteSept2024 1:00pmType 2 diabetes mellitus with diabetic polyneuropathyacuteSept2024 1:00pmType 2 diabetes mellitus with hyperglycemia, with long-term current use ofacute February 01, 2025 1:00pm [facility] Work Phone: 1([phone] 158-209408-21-2025 Evaluation note* Diagnosis Onset Date Resolution Status Admit Date Chronic kidney disease (CKD) stage G4/A3 , severely decreased glomerular acuteAugust 2024 3:39pmBMI 27.0-27.9,adultinactiveAugust 2024 3:39pm Dietary counseling and surveillanceinactiveAugust 2024 3:39pmHTN (hypertension)inactiveAugust 2024 3:39pmHyperlipemiainactiveAugust 2024 3:74uaZ1KP (type 2 diabetes mellitus)inactiveAugust 2024 3:39pm Diabetic nephropathy associated with type 2 diabetes mellitusacuteAugust 2024 3:12pmHyperkalemiaacuteAugust 2024 3:12pmHyperphosphatemiaacuteAugust 2024 3:12pmHyperuricemiaacuteAugust 2024 3:12pmVitamin D deficiency acuteAugust 2024 3:12pmAnemiainactiveAugust 2024 3:12pmChronic kidney disease, stage IV (severe)inactiveAugust 2024 3:12pmPrimary hypertensioninactiveAugust 2024 3:12pmCerebrovascular diseaseacute February 01, 2025 1:00pmDDD (degenerative disc disease), cervicalacute February 01, 2025 1:00pmMedicare annual wellness visit, subsequentacute February 01, 2025 1:00pm [facility] Work Phone: 1(424) 476-947008-21-2025 Evaluation note* Diagnosis Onset Date Resolution Status Admit Date Chronic kidney disease (CKD) stage G4/A3 , severely decreased glomerular acuteAugust 2024 3:39pmBMI 27.0-27.9,adultinactiveAugust 2024 3:39pm Dietary counseling and surveillanceinactiveAugust 2024 3:39pmHTN (hypertension)inactiveAugust 2024 3:39pmHyperlipemiainactiveAugust 2024 3:78soW1GO (type 2 diabetes mellitus)inactiveAugust 2024 3:39pm Diabetic nephropathy associated with type 2 diabetes mellitusacuteAugust 2024 3:12pmHyperkalemiaacuteAugust 2024 3:12pmHyperphosphatemiaacuteAugust 2024 3:12pmHyperuricemiaacuteAugust 2024 3:12pmVitamin D deficiency acuteAugust 2024 3:12pmAnemiainactiveAugust 2024 3:12pmChronic kidney disease, stage IV (severe)inactiveAugust 2024 3:12pmPrimary hypertensioninactiveAugust 2024 3:12pmCerebrovascular diseaseacute February 01, 2025 1:00pmDDD (degenerative disc disease), cervicalacute February 01, 2025 1:00pmMedicare annual wellness visit, subsequentacute February 01, 2025 1:00pmLeft shoulder painacuteNov2024 2:53pm Primary osteoarthritis, left shoulderacuteNov2024 2:53pm [facility] Work Phone: 1(779) 644-702708-12-2025 History of Present illness Narrative* Licha Medrano MD - 01/04/2025 4:00 PM EDT Reason for visit: HPI: Chelsea Diego Jr. is a 74 y.o. male who presents for follow up for TIA versus aborted stroke status post tenecteplase in October of 2024. Patient is present with spouse today. Per spouse patient's speech was garbled and difficult to understand. Patient received IV tenecteplase at that time. Shortlythereafter per spouse his symptoms started to improve. CT angiogram demonstrated some right ICA stenosis. A1c was 6.3 and LDL was 28. MRI brain was negative for any acute abnormalities. Patient did receive a diagnostic cerebral angiogram that estimated the right ICA to be a proximally 50% stenotic.Patient does have past medical history of hypertension, hyperlipidemia, diabetes and CKD. Patient does have a vascular surgeon in the [facility] and does have history of a left toe/foot amputation. Patient is currently on aspirin and statin daily. At baseline patient can ambulate and do ADLs independently. Patient denies any significant residual stroke symptoms. He denies bilateral facial droop, cognitive impairment, inability to speak, loss of vision bilaterally, slurred speech, swallowing difficulty, and weakness of any extremity. Overall he feels his condition is stable. Stroke risk factors include: diabetes mellitus, hyperlipidemia, hypertension, and right ICA 50% stenosis. The following portions of the patient's history were reviewed and updated as appropriate: allergies, current medications, past medical history, past social history, past surgical history, problem list, and medication reconciliation was completed including current medication and post discharge medication. Review of Systems Review of Systems Constitutional: Negative for malaise/fatigue. HENT: Negative for nosebleeds. Eyes: Positive for vision loss in right eye. Negative for blurred vision, double vision, photophobia, vision loss in left eye and visual disturbance. Cardiovascular: Negative for irregular heartbeat, leg swelling, near-syncope, palpitations and syncope. Respiratory: Negative for shortness of breath and sleep disturbances due to breathing. Hematologic/Lymphatic: Negative for bleeding problem. Does not bruise/bleed easily. Skin: Negative for poor wound healing. Musculoskeletal: Positive for back pain. Negative for falls, muscle cramps, muscle weakness, myalgias and neck pain. Gastrointestinal: Positive for constipation. Negative for dysphagia. Neurological: Positive for disturbances in coordination and loss of balance. Negative for aphonia, dizziness, focal weakness, headaches, light-headedness, numbness, paresthesias, seizures, sensory change, vertigo and weakness. Psychiatric/Behavioral: Negative for altered mental status, depression and memory loss. The patientdoes not have insomnia and is not nervous/anxious. Past Medical History Past Medical History: Diagnosis Date Alcohol abuse Arthritis Back pain Cataract Diabetes mellitus type 2, controlled ([facility]) Drug abuse ([facility]) Fractures GERD (gastroesophageal reflux disease) Hyperlipidemia Hypertension Prostate cancer ([facility]) Trachea, foreign body 07/2023 Visual impairment Past Surgical History Past Surgical History: Procedure Laterality Date APPENDECTOMY CHOLECYSTECTOMY CIRCUMCISION N/A 12/06/2019 Performed by Michael Armando MD at [facility] EXTRACTION CATARACT INTRAOCULAR LENS Right 06/20/2022 Performed by Kim Juan MD at [facility] EXTRACTION CATARACT INTRAOCULAR LENS Left 06/06/2022 Performed by Kim Juan MD at [facility] FOOT SURGERY 07/16/2022 left toes amputated HERNIA REPAIR Right inguinal PROSTATE SURGERY SHOULDER ARTHROSCOPY Bilateral Stent carotid with embolic protection right Right 11/22/2024 Performed by Juan Carrasco MD at [facility] CARDIAC CATH LABS TONSILLECTOMY VASECTOMY Family History The patient has a family history of Family History Problem Relation Age of Onset Stroke Mother Diabetes Mother Lupus Sister Social History Social History Socioeconomic History Marital status: Spouse name: Not on file Number of children: Not on file Years of education: Not on file Highest education level: Not on file Occupational History Not on file Tobacco Use Smoking status: Some Days Types: Cigars Smokeless tobacco: Never Tobacco comments: 2 per day Vaping Use Vaping status: Never Used Substance and Sexual Activity Alcohol use: Not Currently Drug use: Not Currently Types: Marijuana, Cocaine Comment: no drug use since 1988 Sexual activity: Never Other Topics Concern Not on file Social History Narrative Not on file Social Drivers of Health Financial Resource Strain: Not on file Food Insecurity: No Food Insecurity (01/04/2025) Hunger Screening Food Insecurity - Worry: Never True Food Insecurity - Inability: Never True Transportation Needs: No Transportation Needs (11/19/2024) PRAPARE - Transportation Lack of Transportation (Medical): No Lack of Transportation (Non-Medical): No Physical Activity: Not on file Stress: Not on file Social Connections: Not on file Interpersonal Safety: Patient Unable To Answer (11/19/2024) Humiliation, Afraid, Rape, and Kick questionnaire Fear of Current or Ex-Partner: Patient unable to answer Emotionally Abused: Patient unable to answer Physically Abused: Patient unable to answer Sexually Abused: Patient unable to answer Housing Instability: Low Risk (11/19/2024) Housing Instability Housing Instability: No Current Medications: Current Outpatient Medications: amLODIPine (NORVASC) 10 mg tablet, Take 1 tablet (10 mg total) by mouth in the morning., Disp: , Rfl: aspirin 81 mg chewable tablet, Chew 1 tablet (81 mg total) and swallow in the morning., Disp: 90 tablet, Rfl: 0 atorvastatin (LIPITOR) 40 mg tablet, Take 1 tablet (40 mg total) by mouth nightly., Disp: , Rfl: bumetanide (BUMEX) 2 mg tablet, Take 1 tablet (2 mg total) by mouth daily., Disp: , Rfl: clopidogreL (PLAVIX) 75 mg tablet, Take 1 tablet (75 mg total) by mouth in the morning., Disp: 90 tablet, Rfl: 0 ferrous sulfate 325 (65 FE) MG tablet, Take 1 tablet (325 mg total) by mouth in the morning and 1 tablet (325 mg total) before bedtime., Disp: , Rfl: folic acid (FOLVITE) 1 mg tablet, Take 1 tablet (1,000 mcg total) by mouth in the morning., Disp: ,Rfl: FREESTYLE ARMANDO 2 PLUS SENSOR device, , Disp: , Rfl: FREESTYLE ARMANDO 2 SENSOR kit, USE DIRECTED to test BLOOD SUGAR change EVERY 14 days, Disp: , Rfl: gabapentin (NEURONTIN) 300 mg capsule, Take 1 capsule (300 mg total) by mouth 3 (three) times a day., Disp: , Rfl: hydrALAZINE (APRESOLINE) 50 mg tablet, Take 1.5 tablets (75 mg total) by mouth 3 (three) times a day., Disp: , Rfl: insulin glargine (LANTUS, SEMGLEE) 100 unit/mL (3 mL) insulin pen, Inject 16 Units under the skin in the morning and at bedtime., Disp: , Rfl: insulin lispro (HumaLOG) 100 unit/mL injection, Inject under the skin in the morning and at noon and in the evening. Inject before meals. Sliding scale based on blood sugar., Disp: , Rfl: melatonin (CIRCADIN) capsule, Take 1 capsule (5 mg total) by mouth nightly., Disp: , Rfl: metoprolol succinate XL (TOPROL XL) 50 mg 24 hr tablet, Take 1 tablet (50 mg total) by mouth in themorning., Disp: , Rfl: sertraline (ZOLOFT) 100 mg tablet, Take 1 tablet (100 mg total) by mouth in the morning., Disp: , Rfl: sevelamer (RENVELA) 800 mg tablet, Take 1 tablet (800 mg total) by mouth in the morning and 1 tablet (800 mg total) at noon and 1 tablet (800 mg total) in the evening. Take with meals., Disp: , Rfl: traMADoL (ULTRAM) 50 mg tablet, Take 1 tablet (50 mg total) by mouth 4 (four) times a day as neededfor pain., Disp: , Rfl: traZODone (DESYREL) 100 mg tablet, Take 1 tablet (100 mg total) by mouth nightly., Disp: , Rfl: Allergies: Allergies Allergen Reactions Cefepime Hives and Shortness Of Breath Lisinopril Angioedema and Facial Swelling Vancomycin Other Reaction(s): kidney damage, renal failure, Metformin Other (See Comments) Kidney pain Last Neuro Imaging: MRI brain 10/2024 Objective: BP 149/72 (BP Site: Left Arm, BP Postition: Sitting, BP CUFF SIZE: M (9-13 inches)) Pulse 63 Ht172.7 cm (5' 8 ) Wt 83 kg (183 lb) BMI 27.83 kg/m Physical Exam: Physical Exam: Mental Status: Orientation: Oriented. Level of consciousness: alert. Speech: Normal quality. Language: Normal. Cranial Nerves: CN II: Visual ashraf full to confrontation. CN III, IV, : CN III: EOM full. CN VII: Facial expression fully symmetric. Motor: Power: Normal strength throughout. Sensory: Light touch normal in upper and lower extremities. Gait/Coord/DTR: Coordination: Normal. NIH Stroke Scale 1a Level of consciousness: 0=alert; keenly responsive 1b. LOC questions: 0=Performs both tasks correctly 1c. LOC commands: 0=Performs both tasks correctly 2. Best Gaze: 0=normal 3. Visual: 0=No visual loss 4. Facial Palsy: 0=Normal symmetric movement 5a. Motor left arm: 0=No drift, limb holds 90 (or 45) degrees for full 10 seconds 5b. Motor right arm: 0=No drift, limb holds 90 (or 45) degrees for full 10 seconds 6a. motor left le=No drift, limb holds 90 (or 45) degrees for full 10 seconds 6b Motor right le=No drift, limb holds 90 (or 45) degrees for full 10 seconds 7. Limb Ataxia: 0=Absent 8. Sensory: 0=Normal; no sensory loss 9. Best Language: 0=No aphasia, normal 10. Dysarthria: 0=Normal 11. Extinction and Inattention: 0=No abnormality 12. Distal motor function: 0=Normal Total: 0 MRS: 0 Risk Factor Management: Hypertension target range 130-140/70-80 Lipid range - LDL < 100 and checked every 6 months, fasting Diabetes - HgB A1C <7 CKD Left toe amputation Right ICA 50% stenosis Assessment: Patient Active Problem List Diagnosis Hypertension Prostate cancer ([facility]) Phimosis Stroke-like symptoms SONYA (acute kidney injury) Chronic heart failure with preserved ejection fraction (HFpEF) ([facility]) CKD stage 3a, GFR 45-59 ml/min ([facility]) Diabetes mellitus due to underlying condition with diabetic neuropathy, unspecified ([facility]) Diabetic nephropathy associated with type 2 diabetes mellitus ([facility]) Diabetic polyneuropathy ([facility]) DDD (degenerative disc disease), lumbar Dyslipidemia Essential hypertension, benign Hyperlipemia History of tracheostomy Gastroesophageal reflux disease MDD (major depressive disorder), recurrent episode, moderate ([facility]) Hyponatremia MICHAEL (obstructive sleep apnea) Ocular palsy of right eye Neuropathy Proliferative diabetic retinopathy of both eyes without macular edema associated with type 2 diabetes mellitus ([facility]) Thrombocytosis Vitreous hemorrhage of right eye ([facility]) Stenosis of both internal carotid arteries Acute kidney injury superimposed on stage 3a chronic kidney disease ([facility]) Iron deficiency anemia Hypokalemia Type 2 diabetes mellitus with kidney complication, with long-term current use of insulin ([facility]) Cigarette nicotine dependence without complication Ischemic stroke ([facility]) Carotid artery stenosis, unilateral Patient is a 74-year-old male who had a TIA versus aborted stroke status post IV tenecteplase in October of 2024 with negative MRI brain and diagnostic cerebral angiogram demonstrated right ICA 50% stenosis. Patient does have past medical history of hypertension, hyperlipidemia, diabetes and CKD. At this time would recommend completing an event monitor to rule out AFib/a flutter also recommend at least yearly carotid ultrasounds done by his vascular surgeon. Patient should continue to aggressivelymanage stroke risk factors. Follow up will depend on event monitor results. Plan: Complete event monitor to rule out Afib/flutter. Obtain yearly carotid ultrasounds by vascular surgery, Dr. Bautista. Continue ASA daily Continue cholesterol medication Continue diabetic medications Continue blood pressure medications. Monitor BP at home. Adjust meds as needed. Followup will depend on event monitor results. Call for any questions/concerns. documented in this encounterMad[facility]08-12-2025 Instructions* Patient Instructions* Licha Medrano MD - 01/04/2025 4:00 PM EDT Complete event monitor to rule out Afib/flutter. Obtain yearly carotid ultrasounds by vascular surgery, Dr. Bautista. Continue ASA daily Continue cholesterol medication Continue diabetic medications Continue blood pressure medications. Monitor BP at home. Adjust meds as needed. Followup will depend on event monitor results. Call for any questions/concerns. documented in this encounterMadison Health07-22-2025 History of Present illness Narrative* Tejas Stevens MD - 12/14/2024 4:30 PM EDTAssociated Problem(s): Type 2 diabetes mellitus with hyperglycemia, with long-term current use of insulin (HCC) BS stable and follow with endo. * Tejas Stevens MD - 12/14/2024 4:30 PM EDTAssociated Problem(s): Stenosis of both internal carotid arteries Will need follow up and follow with vascular. * Tejas Stevens MD - 12/14/2024 4:29 PM EDTAssociated Problem(s): Transient ischemic attack Continue aspirin and plavix. Follow with neurology. * Tejas Stevens MD - 12/14/2024 3:45 PM EDT Images from the original note were not included. Subjective Patient ID: Chelsea Diego Jr is a 73 y.o. male who presents for Follow-up (Hospital f/up stroke). Hospital follow up from 11/19-11/23 for TIA. Developed slurred speech and right facial droop. To ER and CT negative. CTA showed bilateral carotid stenosis and given TNK. Symptoms resolved and transferred to [facility]. MRI brain negative. A1C 6.3. Angiogram showed about 70% stenosis right ICA and did not have angioplasty due to concern of kidney function. Started aspirin and plavix. Scheduled with neurology and likely will need intervention on carotids. Overall feels well and no further symptoms. Review of Systems Constitutional: Negative for fatigue. Respiratory: Negative for cough, shortness of breath and wheezing. Cardiovascular: Negative for chest pain and palpitations. Gastrointestinal: Negative for abdominal pain, diarrhea, nausea and vomiting. Genitourinary: Negative for dysuria. Objective Physical Exam Constitutional: General: He is not in acute distress. Appearance: Normal appearance. HENT: Head: Normocephalic. Right Ear: Tympanic membrane and ear canal normal. Left Ear: Tympanic membrane and ear canal normal. Eyes: Extraocular Movements: Extraocular movements intact. Pupils: Pupils are equal, round, and reactive to light. Cardiovascular: Rate and Rhythm: Normal rate and regular rhythm. Heart sounds: No murmur heard. No friction rub. No gallop. Pulmonary: Breath sounds: Normal breath sounds. No wheezing, rhonchi or rales. Abdominal: General: Bowel sounds are normal. There is no distension. Palpations: Abdomen is soft. Tenderness: There is no abdominal tenderness. There is no guarding or rebound. Musculoskeletal: Left lower leg: No edema. Neurological: Mental Status: He is alert. Assessment/Plan Problem List Items Addressed This Visit Essential hypertension, benign Type 2 diabetes mellitus with hyperglycemia, with long-term current use of insulin (HCC) BS stable and follow with endo. Transient ischemic attack - Primary Continue aspirin and plavix. Follow with neurology. Stenosis of both internal carotid arteries Will need follow up and follow with vascular. documented in this encounterSaint John's [facility]ree[facility] [id number] Miscellaneous Notes* Telephone Encounter - Corrine Terrell RN - 11/24/2024 8:53 AM EDT ----- Message from Roberto Desouza MD sent at 11/23/2024 5:31 PM EDT ----- Regarding: Follow up Good evening, could we have this patient follow up with the vascular neurologist in 4-6 weeks? * Telephone Encounter - Corrine Terrell RN - 11/24/2024 8:53 AM EDT Dx: Symptoms of speech difficulty and right facial droop in the setting of bilateral ICA stenosis. ABCD2 score is 7, most likely a transient ischemic attack Marcela/fellow/samantha * Telephone Encounter - Kelly Nathan - 11/24/2024 8:53 AM EDT Spoke with patient and scheduled appt documented in this encounterMadison Health07-02-2025 Telephone encounter Note* Telephone Encounter - Corrine Terrell RN - 11/24/2024 8:53 AM EDT ----- Message from Roberto Desouza MD sent at 11/23/2024 5:31 PM EDT ----- Regarding: Follow up Good evening, could we have this patient follow up with the vascular neurologist in 4-6 weeks? [facility] [employer] [id number] Telephone encounter Note* Telephone Encounter - Corrine Terrell RN - 11/24/2024 8:53 AM EDT Dx: Symptoms of speech difficulty and right facial droop in the setting of bilateral ICA stenosis. ABCD2 score is 7, most likely a transient ischemic attack Marcela/fellow/samantha [facility]07-02-2025 Telephone encounter Note* Telephone Encounter - Kelly Nathan - 11/24/2024 8:53 AM EDT Spoke with patient and scheduled appt [facility]06-27-2025 NoteXR CHEST 1 VW History: Mental status changes Procedure: Chest AP portable upright Comparison: 09/13/2016 Findings: The heart and lungs show no acute findings, and the mediastinum and simba are grossly negative . No pneumothorax. Impression: No acute pulmonary process. Finalized by Claude Royal MD on 11/19/2024 7:51 [facility] 11-04-2024 History of Present illness Narrative* Rohan Han DPM - 11/04/2024 3:40 PM EDT Patient: Chelsea Diego : 1950 PCP: Tejas Stevens MD SUBJECTIVE This is a 73 y.o. male that presents today with a CC of elongated, thick nails. Pt states nails have been elongated and thick for many years and cause pain with ambulation in shoegear. Patient is a type 2 diabetic with controlled sugars and had history of left TMA in the recent past.Patient had 2 months of hospitalization with ICU stay including issue with sepsis pneumonia and end-stage renal disease. Pt has hx of xerosis to feet Patient was to receive diabetic shoes in the past. Allergies: Allergies Allergen Reactions Cefepime Metformin Other Reaction(s): Other (See Comments) Kidney pain Lisinopril Rash Past Medical History: Past Medical History: Diagnosis Date Alcoholism ([facility]) Arthritis Broken ankle, right Broken collarbone Broken neck ([facility]) Bunion Cataract Compression fracture of C-spine ([facility]) 2010 T10-T12 DDD (degenerative disc disease), cervical DDD (degenerative disc disease), lumbar Depression ([facility]) Diabetic ulcer of left midfoot associated with type 2 diabetes mellitus, limited to breakdown of skin ([facility]) DM (diabetes mellitus) ([facility]) Elevated PSA Foot ulcer ([facility]) GERD (gastroesophageal reflux disease) History of elevated prostate specific antigen (PSA) History of medical problems 2010 degenrative change mid/lower thoracic spine Hx of shoulder surgery 2003 Hypertension ([facility]) Lumbar spondylolysis Neuropathy in diabetes ([facility]) Ocular palsy of right eye Osteomyelitis of left foot, unspecified type ([facility]) Prostate cancer ([facility]) PSA elevation Pulmonary arterial hypertension ([facility]) Substance abuse Type 2 diabetes mellitus with diabetic polyneuropathy, with long-term current use of insulin ([facility]) Vitamin D deficiency Weak urinary stream Medications: Current Outpatient Medications: amLODIPine (Norvasc) 10 MG tablet, TAKE 1 TABLET BY MOUTH DAILY, Disp: 30 tablet, Rfl: 11 atorvastatin (Lipitor) 40 MG tablet, Take 40 mg by mouth at bedtime., Disp: , Rfl: bumetanide (Bumex) 2 MG tablet, TAKE 1 TABLET BY MOUTH DAILY, Disp: 30 tablet, Rfl: 3 cholecalciferol (Vitamin D-3) 50 MCG (1999) tablet, 1 (one) time each day at the same time, Disp: , Rfl: clopidogrel (Plavix) 75 MG tablet, Take 1 tablet (75 mg) by mouth Daily, Disp: 90 tablet, Rfl: 3 Drug [facility] Pentips 31G X 6 MM [facility], USE DISPOSABLE PEN TIP TWICE DAILY DIRECTED, Disp: 100 each, Rfl: 11 famotidine (Pepcid) 40 MG tablet, 40 mg in the morning and 40 mg before bedtime., Disp: , Rfl: FeroSul 325 (65 Fe) MG tablet, Take 1 tablet by mouth in the morning and 1 tablet before bedtime., Disp: , Rfl: gabapentin (Neurontin) 300 MG capsule, TAKE 1 CAPSULE BY MOUTH THREE TIMES DAILY (IN THE MORNING, IN THE EVENING and BEFORE bedtime), Disp: 90 capsule, Rfl: 2 hydrALAZINE (Apresoline) 25 MG tablet, Take 25 mg by mouth in the morning and 25 mg in the evening and 25 mg before bedtime., Disp: , Rfl: hydrOXYzine HCl (Atarax) 25 MG tablet, Take 1 tablet (25 mg) by mouth 4 (four) times a day as needed for anxiety, Disp: 60 tablet, Rfl: 2 insulin glargine (Basaglar KwikPen) 100 UNIT/ML pen, Inject under the skin at bedtime, Disp: , Rfl: insulin lispro protamine-insulin lispro (HumaLOG MIX 50/50 KWIKPEN) (50-50) 100 UNIT/ML injection, Inject under the skin 2 (two) times a day with meals, Disp: , Rfl: Lancets 28G misc, Test daily, Disp: 100 each, Rfl: 3 Lantus SoloStar 100 UNIT/ML pen, INJECT 20 UNITS SUBCUTANEOUSLY at BREAKFAST and AT BEDTIME, Disp: , Rfl: melatonin 3 MG tablet, Take 6 mg by mouth at bedtime, Disp: , Rfl: metoprolol succinate XL (Toprol-XL) 50 MG 24 hr tablet, Take 1 tablet (50 mg) by mouth Daily, Disp:30 tablet, Rfl: 11 sertraline (Zoloft) 100 MG tablet, TAKE 1 TABLET BY MOUTH DAILY, Disp: 30 tablet, Rfl: 5 sevelamer carbonate (Renvela) 800 MG tablet, TAKE 2 TABLETS BY MOUTH THREE TIMES DAILY (IN THE MORNING, at noon, and IN THE EVENING) WITH MEALS, Disp: 180 tablet, Rfl: 5 traZODone (Desyrel) 100 MG tablet, Take 1 tablet (100 mg) by mouth at bedtime, Disp: 90 tablet, Rfl: 3 Social History: Social History Socioeconomic History Marital status: Spouse name: Not on file Number of children: Not on file Years of education: Not on file Highest education level: Not on file Occupational History Not on file Tobacco Use Smoking status: Former Types: Cigars Passive exposure: Never Smokeless tobacco: Current Vaping Use Vaping status: Every Day Substance and Sexual Activity Alcohol use: Not Currently Comment: caffeine yes type: chocolate, coffee Drug use: Not Currently Types: Crack cocaine, Cocaine, Hashish, Marijuana, Mescaline, Opium, Oxycodone Sexual activity: Not Currently Partners: Female control/protection: Abstinence, None Other Topics Concern Not on file Social History Narrative Not on file Social Drivers of Health Financial Resource Strain: Not on file Food Insecurity: No Food Insecurity (01/21/2024) [facility] Hunger Screening Within the past 12 months we worried whether our food would run out before we got money to buy more.: Never True Within the past 12 months the food we bought just didn't last and we didn't have money to get more.: Never True Transportation Needs: Not on file Physical Activity: Not on file Stress: Not on file Social Connections: Not on file Intimate Partner Violence: Unknown (07/17/2023) Received from [facility] [place] [employer] [facility] Fear of Current or Ex-Partner: Not on file Emotionally Abused: Not on file Physically Abused: Not on file Sexually Abused: Not on file Physically or Sexually Abused: Not on file Housing Stability: Not on file ROS: General: denies fever, chills, fatigue, malaise OBJECTIVE LE EXAM: DERM: Elongated thick yellow crumbly nails digits 1 through 5 of the right foot with left TMA site intact with greatly diminished dry and scaly skin To bilateral feet noted Plus one pitting edema to bilateral ankles VASC: Positive DP and negative PT pedal pulses NEURO: 5.07 [place] [employer]ha monofilament test diminished to digits and forefoot bilaterally 125Hz tuning fork diminished bilaterally ORTHO: Positive pain on palpation to toenails of the right 1,2,3,4,5 toes Digital deformities with flexion deformities right 1 through 5 digits ASSESSMENT 1. 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) 2. Onychomycosis 3. Toe pain, right 4. History of transmetatarsal amputation of left foot (HCC) (CMS/HCC) 5. Xerosis cutis PLAN Discussed proper foot care with patient today. Debride nails in length and thickness digits 1 through 5 of the left foot Patient educated today on proper diabetic foot care including monitoring feet daily for any signs of infection openings in the skin or irregularities to both feet. Patient had a diabetic neurologicalexam today to both their feet and discussed proper shoe gear. patient to continue with hydrating creams to feet twice daily Rohan Han DPM documented in this encounterSaint John's [facility] [id number] [facility] Chief Complaint: Patient here for 6 mo follow up HFpEF, PVD, and hypertension. Had labs 2 weeks ago. He's feeling very well lately. Denies chest pain, SOB, and LE edema. HPI: Chelsea Diego JR is a 73 [...] myocardial infarction's. Cardiology ROS: Review of Systems Musculoskeletal: Positive for muscle weakness. Neurological: Positive for loss of balance. All other systems reviewed and are negative. Past Medical History He has a past medical history of Chronic kidney disease, Diabetes mellitus (CMS/HCC), Hyperlipidemia, Hypertension, and PVD (peripheral vascular disease). Surgical History He has a past surgical history that includes Hernia repair; Cholecystectomy; Tonsillectomy; and Toe amputation. Social History He reports that he quit smoking about 14 months ago. His smoking use included cigarettes. He uses smokeless tobacco. He reports that he does not currently use alcohol. No history on file for drug use. Family History Family History Problem Relation Name Age of Onset Diabetes Mother Allergies Cefepime, Metformin, Vancomycin, and Lisinopril Medications Current Outpatient Medications: furosemide (Lasix) 40 mg tablet, Take 2 tablets by mouth Twice daily at 6am and 6pm., Disp: , Rfl: hydrALAZINE (Apresoline) 50 mg tablet, Take 1 tablet by mouth every 6 (six) hours during the day., Disp: , Rfl: hydrALAZINE (Apresoline) 50 mg tablet, Take 1 tablet by mouth every 6 (six) hours during the day., Disp: , Rfl: hydrOXYzine HCL (Atarax) 25 mg tablet, Take 25 mg by mouth 1 (one) time., Disp: , Rfl: metoprolol tartrate (Lopressor) 50 mg tablet, Take 1 tablet by mouth Twice daily at 6am and 6pm., Disp: , Rfl: Veltassa 8.4 gram powder in packet, Take 1 packet by mouth in the morning., Disp: , Rfl: amLODIPine (Norvasc) 10 mg tablet, Take 10 mg by mouth in the morning., Disp: , Rfl: atorvastatin (Lipitor) 40 mg tablet, Take 40 mg by mouth at bedtime., Disp: , Rfl: bumetanide (Bumex) 2 mg tablet, Take 2 mg by mouth in the morning., Disp: , Rfl: cholecalciferol (Vitamin D-3) 50 MCG (2000 UT) tablet, Take 2,000 Units by mouth in the morning., Disp: , Rfl: clopidogrel (Plavix) 75 mg tablet, Take 75 mg by mouth in the morning., Disp: , Rfl: ergocalciferol (Vitamin D-2) 1.25 MG (31992 Units) capsule, Take 1.25 mg by mouth., Disp: , Rfl: famotidine (Pepcid) 40 mg tablet, 40 mg twice a day., Disp: , Rfl: gabapentin (Neurontin) 300 mg capsule, Take 300 mg by mouth three times daily., Disp: , Rfl: insulin lispro (HumaLOG) 100 unit/mL injection, Inject under the skin., Disp: , Rfl: insulin lispro protamin-lispro (HumaLOG Mix 50-50 KwikPen) 100 unit/mL (50-50) injection pen, Inject 50 Units under the skin with breakfast and with evening meal., Disp: , Rfl: Lantus Solostar U-100 Insulin 100 unit/mL (3 mL) injection pen, INJECT 20 UNITS SUBCUTANEOUSLY at BREAKFAST and AT BEDTIME, Disp: , Rfl: metoprolol succinate XL (Toprol-XL) 50 mg 24 hr tablet, Take 50 mg by mouth in the morning., Disp: , Rfl: QUEtiapine (SEROquel) 100 mg tablet, Take 100 mg by mouth at bedtime., Disp: , Rfl: sertraline (Zoloft) 100 mg tablet, Take 100 mg by mouth in the morning., Disp: , Rfl: sevelamer carbonate (Renvela) 800 mg tablet, Take 1,600 mg by mouth with breakfast, with lunch, and with evening meal., Disp: , Rfl: spironolactone (Aldactone) 50 mg tablet, Take 50 mg by mouth in the morning., Disp: , Rfl: traZODone (Desyrel) 50 mg tablet, Take 50 mg by mouth at bedtime., Disp: , Rfl: Last Recorded Vitals BP 101/59 (BP Location: Right arm, Patient Position: Sitting) Pulse 66 Ht 1.727 m (5' 8 ) Wt 84.4 kg (186 lb) SpO2 95% BMI 28.28 kg/m??? Physical Examination: GENERAL: alert and oriented [...] (eGFR 27) Echocardiogram 02/2023: Mild concentric left ventric (more content not included)...[facility]03-06-2025 Evaluation note* Diagnosis Onset Date Resolution Status Admit Date BMI 28.0-28.9,adult acuteMarch 2024 2:24pmDietary counseling and surveillanceacuteMarch 2024 2:24pmHTN (hypertension)acuteMarch 2024 2:24pmHyperlipemiaacuteMarch 2024 2:[id number] (type 2 diabetes mellitus)acuteMarch 2024 2:24pmAnemia acuteApril 2024 3:23pmChronic kidney disease, stage IV (severe)acuteApril 2024 3:23pmDiabetic nephropathy associated with type 2 diabetes mellitus acuteApril 2024 3:23pmHyperkalemiaacuteApril 2024 3:23pm HyperphosphatemiaacuteApril 2024 3:23pmPrimary hypertensionacuteApril 2024 3:39cuX3YM (type 2 diabetes mellitus)acuteApril 2024 3:23pmVitamin D deficiencyacuteApril 2024 3:23pm [facility] Work Phone: 1(998) 701-674302-27-2025 History of Present illness Narrative* Rohangudelia Han, DPM - 07/22/2024 4:00 PM EST Patient: Chelsea Diego Jr : 1950 PCP: Tejas Stevens MD SUBJECTIVE This is a 73 y.o. male that presents today with a CC of elongated, thick nails. Pt states nails have been elongated and thick for many years and cause pain with ambulation in shoegear. Patient is a type 2 diabetic with controlled sugars and had history of left TMA in the recent past.Patient had 2 months of hospitalization with ICU stay including issue with sepsis pneumonia and end-stage renal disease. Pt has hx of xerosis to feet Patient was to receive diabetic shoes in the past. Allergies: Allergies Allergen Reactions Cefepime Metformin Other Reaction(s): Other (See Comments) Kidney pain Lisinopril Rash Past Medical History: Past Medical History: Diagnosis Date Alcoholism ([facility]) Arthritis Broken ankle, right Broken collarbone Broken neck ([facility]) Bunion Cataract Compression fracture of C-spine ([facility]) 2010 T10-T12 DDD (degenerative disc disease), cervical DDD (degenerative disc disease), lumbar Depression ([facility]) Diabetic ulcer of left midfoot associated with type 2 diabetes mellitus, limited to breakdown of skin (CMS/[facility]) DM (diabetes mellitus) (CMS/[facility]) Elevated PSA Foot ulcer ([facility]) GERD (gastroesophageal reflux disease) History of elevated prostate specific antigen (PSA) History of medical problems 2010 degenrative change mid/lower thoracic spine Hx of shoulder surgery 2004 Hypertension (CMS/[facility]) Lumbar spondylolysis Neuropathy in diabetes ([facility]) Ocular palsy of right eye Osteomyelitis of left foot, unspecified type ([facility]/HCC) Prostate cancer ([facility]) PSA elevation Pulmonary arterial hypertension ([facility]/HCC) Substance abuse ([facility]) Type 2 diabetes mellitus with diabetic polyneuropathy, with long-term current use of insulin ([facility]) Vitamin D deficiency Weak urinary stream Medications: Current Outpatient Medications: amLODIPine (Norvasc) 10 MG tablet, Take 1 tablet (10 mg) by mouth Daily, Disp: 30 tablet, Rfl: 11 atorvastatin (Lipitor) 40 MG tablet, Take 40 mg by mouth at bedtime., Disp: , Rfl: bumetanide (Bumex) 2 MG tablet, TAKE 1 TABLET BY MOUTH DAILY, Disp: 30 tablet, Rfl: 3 cholecalciferol (Vitamin D-3) 50 MCG (1999 UT) tablet, 1 (one) time each day at the same time, Disp: , Rfl: clopidogrel (Plavix) 75 MG tablet, Take 75 mg by mouth in the morning., Disp: , Rfl: Drug [facility] Pentips 31G X 6 MM [facility], USE DISPOSABLE PEN TIP TWICE DAILY DIRECTED, Disp: 100 each, Rfl: 11 famotidine (Pepcid) 40 MG tablet, 40 mg in the morning and 40 mg before bedtime., Disp: , Rfl: FeroSul 325 (65 Fe) MG tablet, Take 1 tablet by mouth in the morning and 1 tablet before bedtime., Disp: , Rfl: gabapentin (Neurontin) 300 MG capsule, TAKE 1 CAPSULE BY MOUTH THREE TIMES DAILY (IN THE MORNING, IN THE EVENING and BEFORE bedtime), Disp: 90 capsule, Rfl: 2 hydrALAZINE (Apresoline) 25 MG tablet, Take 25 mg by mouth in the morning and 25 mg in the evening and 25 mg before bedtime., Disp: , Rfl: hydrOXYzine HCl (Atarax) 25 MG tablet, Take 1 tablet (25 mg) by mouth 4 (four) times a day as needed for anxiety, Disp: 60 tablet, Rfl: 2 insulin glargine (Basaglar KwikPen) 100 UNIT/ML pen, Inject under the skin at bedtime, Disp: , Rfl: insulin lispro protamine-insulin lispro (HumaLOG MIX 50/50 KWIKPEN) (50-50) 100 UNIT/ML injection, Inject under the skin 2 (two) times a day with meals, Disp: , Rfl: Lancets 28G misc, Test daily, Disp: 100 each, Rfl: 3 Lantus SoloStar 100 UNIT/ML pen, INJECT 20 UNITS SUBCUTANEOUSLY at BREAKFAST and AT BEDTIME, Disp: , Rfl: melatonin 3 MG tablet, Take 6 mg by mouth at bedtime, Disp: , Rfl: metoprolol succinate XL (Toprol-XL) 50 MG 24 hr tablet, Take 1 tablet (50 mg) by mouth Daily, Disp:30 tablet, Rfl: 11 sertraline (Zoloft) 100 MG tablet, TAKE 1 TABLET BY MOUTH DAILY, Disp: 30 tablet, Rfl: 5 sevelamer carbonate (Renvela) 800 MG tablet, TAKE 2 TABLETS BY MOUTH THREE TIMES DAILY (IN THE MORNING, at noon, and IN THE EVENING) WITH MEALS, Disp: 180 tablet, Rfl: 5 traZODone (Desyrel) 100 MG tablet, Take 1 tablet (100 mg) by mouth at bedtime, Disp: 90 tablet, Rfl: 3 Social History: Social History Socioeconomic History Marital status: Spouse name: Not on file Number of children: Not on file Years of education: Not on file Highest education level: Not on file Occupational History Not on file Tobacco Use Smoking status: Former Types: Cigars Passive exposure: Never Smokeless tobacco: Current Vaping Use Vaping status: Every Day Substance and Sexual Activity Alcohol use: Not Currently Comment: caffeine yes type: chocolate, coffee Drug use: Not Currently Types: Crack cocaine, Cocaine, Hashish, Marijuana, Mescaline, Opium, Oxycodone Sexual activity: Not Currently Partners: Female control/protection: Abstinence, None Other Topics Concern Not on file Social History Narrative Not on file Social Drivers of Health Financial Resource Strain: Not on file Food Insecurity: No Food Insecurity (01/21/2024) Received from [facility] Hunger Screening Within the past 12 months we worried whether our food would run out before we got money to buy more.: Never True Within the past 12 months the food we bought just didn't last and we didn't have money to get more.: Never True Transportation Needs: Not on file Physical Activity: Not on file Stress: Not on file Social Connections: Not on file Intimate Partner Violence: Unknown (07/17/2023) Received from [facility] [employer] [place] Safety & Environment Fear of Current or Ex-Partner: Not on file Emotionally Abused: Not on file Physically Abused: Not on file Sexually Abused: Not on file Physically or Sexually Abused: Not on file Housing Stability: Not on file ROS: General: denies fever, chills, fatigue, malaise OBJECTIVE LE EXAM: DERM: Elongated thick yellow crumbly nails digits 1 through 5 of the right foot with left TMA site intact with greatly diminished dry and scaly skin To bilateral feet noted Plus one pitting edema to bilateral ankles VASC: Positive DP and negative PT pedal pulses NEURO: 5.07 [place] [employer] monofilament test diminished to digits and forefoot bilaterally 125Hz tuning fork diminished bilaterally ORTHO: Positive pain on palpation to toenails of the right 1,2,3,4,5 toes Digital deformities with flexion deformities right 1 through 5 digits ASSESSMENT 1. 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) 2. Onychomycosis 3. Toe pain, right 4. History of transmetatarsal amputation of left foot (HCC) (CMS/HCC) 5. Xerosis cutis 6. Acquired deformity of right toe PLAN Discussed proper foot care with patient today. Debride nails in length and thickness digits 1 through 5 of the left foot Patient educated today on proper diabetic foot care including monitoring feet daily for any signs of infection openings in the skin or irregularities to both feet. Patient had a diabetic neurologicalexam today to both their feet and discussed proper shoe gear. patient to continue with hydrating creams to feet twice daily New prescription for diabetic shoes today for patient Rohan Han DPM documented in this encounterSaint [facility] [id number] Evaluation note* Diagnosis Onset Date Resolution Status Admit Date Anemia acuteJanuary 2024 2:00pmChronic kidney disease, stage IV (severe)acute June 09, 2024 2:00pmDiabetic nephropathy associated with type 2 diabetes mellitusacuteJanuary 2024 2:00pmHyperkalemiaacuteJanuary 2024 2:00pm HyperphosphatemiaacuteJanuary 2024 2:00pmPrimary hypertensionacuteJanuary 2024 2:[id number] (type 2 diabetes mellitus)acuteJanuary 2024 2:00pm Vitamin D deficiencyacuteJanuary 2024 2:00pmBMI 31.0-31.9,adultacuteMarch 2024 2:24pmDietary counseling and surveillanceacuteMarch 2024 2:24pm HTN (hypertension)acuteMarch 2024 2:24pmHyperlipemiaacuteMarch 2024 2:20umY0FN (type 2 diabetes mellitus)acuteMarch 2024 2:24pm [facility] Work Phone: 1(867) 302-921601-15-2025 Evaluation note* Diagnosis Onset Date Resolution Status Admit Date Anemia acuteJanuary 2024 2:00pmChronic kidney disease, stage IV (severe)acute June 09, 2024 2:00pmDiabetic nephropathy associated with type 2 diabetes mellitusacuteJanuary 2024 2:00pmHyperkalemiaacuteJanuary 2024 2:00pm HyperphosphatemiaacuteJanuary 2024 2:00pmPrimary hypertensionacuteJanuary 2024 2:[id number] (type 2 diabetes mellitus)acuteJanuary 2024 2:00pm Vitamin D deficiencyacuteJanuary 2024 2:00pmBMI 28.0-28.9,adultacuteMarch 2024 2:24pmDietary counseling and surveillanceacuteMarch 2024 2:24pm HTN (hypertension)acuteMarch 2024 2:24pmHyperlipemiaacuteMarch 2024 2:[id number] (type 2 diabetes mellitus)acuteMarch 2024 2:24pmAnemiaacuteApril 2024 3:23pmChronic kidney disease, stage IV (severe)acuteApril 2024 3:23pmDiabetic nephropathy associated with type 2 diabetes mellitusacuteApril 2024 3:23pmHyperkalemiaacuteApril 2024 3:23pmHyperphosphatemiaacute August 31, 2024 3:23pmPrimary hypertensionacuteApril 2024 3:10wpO5CI (type 2 diabetes mellitus)acuteApril 2024 3:23pmVitamin D deficiencyacuteApril 2024 3:23pm [facility] Work Phone: 1(599) 686-550811-21-2024 History of Present illness Narrative* Tejas Stevens MD - 04/15/2024 4:32 PM ESTAssociated Problem(s): Type 2 diabetes mellitus with hyperglycemia, with long-term current use of insulin (CMS/HCC) BS stable and follow with endo. * Tejas Stevens MD - 04/15/2024 4:32 PM ESTAssociated Problem(s): Primary insomnia Sleeping well with trazodone and continue. * Tejas Stevens MD - 04/15/2024 4:32 PM ESTAssociated Problem(s): MDD (major depressive disorder), recurrent episode, moderate (CMS/HCC) Symptoms controlled with medication and continue. * Tejas Stevens MD - 04/15/2024 4:32 PM ESTAssociated Problem(s): BRYCE (generalized anxiety disorder) (CMS/HCC) Symptoms controlled with medication and continue. Use hydroxyzine PRN. * Tejas Stevens MD - 04/15/2024 4:31 PM ESTAssociated Problem(s): Chronic kidney disease, stage IV (severe) (CMS/HCC) Renal function stable and follow with specialists * Tejas Stevens MD - 04/15/2024 4:31 PM ESTAssociated Problem(s): Essential hypertension, benign (CMS/HCC) BP controlled and monitor PRN. * Tejas Stevens MD - 04/15/2024 4:31 PM ESTAssociated Problem(s): Chronic heart failure with preserved ejection fraction (HFpEF) ([facility]) Edema controlled and follow with specialists. * Tejas Stevens MD - 04/15/2024 3:00 PM EST Images from the original note were not included. Subjective Patient ID: Chelsea Diego Jr is a 73 y.o. male who presents for Follow-up (3m). Follow up HTN, neuropathy, depression, anxiety, insomnia, CHF, CKD, and DM. Checking BP PRN and typically controlled. BP normal today. Taking medication daily and tolerating without side effects. Neuropathy stable. Pain in feet and hands. Pain worse at end of day and in evening. Pain with walking and standing. Using neurontin and ultram and helps. Mood controlled with zoloft. Not as down or sad and feels happier. Anxiety stable. Not as stressed out or overwhelmed. Not as nervous or worry as much. Not as vidales or irritable. Sleeping well with trazodone. Able to fall asleep and stay asleep. Wakes up rested in am. Edema controlled with medication. Mild swelling at end of day and if on feet a lot. Edema improved in am and with elevation. CKD stable. Following with nephrology and recent labs improved. BS stable and scheduled with endo next week. Review of Systems Constitutional: Negative for fatigue. Respiratory: Negative for cough, shortness of breath and wheezing. Cardiovascular: Negative for chest pain and palpitations. Gastrointestinal: Negative for abdominal pain, diarrhea, nausea and vomiting. Genitourinary: Negative for dysuria. Objective Physical Exam Constitutional: General: He is not in acute distress. Appearance: Normal appearance. HENT: Head: Normocephalic. Right Ear: Tympanic membrane and ear canal normal. Left Ear: Tympanic membrane and ear canal normal. Eyes: Extraocular Movements: Extraocular movements intact. Pupils: Pupils are equal, round, and reactive to light. Cardiovascular: Rate and Rhythm: Normal rate and regular rhythm. Heart sounds: No murmur heard. No friction rub. No gallop. Pulmonary: Breath sounds: Normal breath sounds. No wheezing, rhonchi or rales. Abdominal: General: Bowel sounds are normal. There is no distension. Palpations: Abdomen is soft. Tenderness: There is no abdominal tenderness. There is no guarding or rebound. Musculoskeletal: Left lower leg: No edema. Neurological: Mental Status: He is alert. Assessment/Plan Problem List Items Addressed This Visit Essential hypertension, benign (CMS/HCC) - Primary BP controlled and monitor PRN. Type 2 diabetes mellitus with hyperglycemia, with long-term current use of insulin (CMS/HCC) BS stable and follow with endo. Chronic heart failure with preserved ejection fraction (HFpEF) (CMS/HCC) Edema controlled and follow with specialists. Primary insomnia Sleeping well with trazodone and continue. Relevant Medications traZODone (Desyrel) 100 MG tablet BRYCE (generalized anxiety disorder) (CMS/HCC) Symptoms controlled with medication and continue. Use hydroxyzine PRN. MDD (major depressive disorder), recurrent episode, moderate (CMS/HCC) Symptoms controlled with medication and continue. Chronic kidney disease, stage IV (severe) (CMS/HCC) Renal function stable and follow with specialists documented in this encounterSaint John's [facility] [id number] Evaluation note* Diagnosis Onset Date Resolution Status Admit Date SONYA (acute kidney injury) acuteApril 07, 2024 4:19pmAnemiaacuteApril 07, 2024 4:19pmChronic kidney disease, stage IV (severe)acuteApril 07, 2024 4:19pmDiabetic nephropathy associated with type 2 diabetes mellitusacuteApril 07, 2024 4:19pmHyperkalemiaacuteApril 07, 2024 4:19pmHyperphosphatemiaacuteApril 07, 2024 4:19pmPrimary hypertensionacuteApril 07, 2024 4:89siT9LG (type 2 diabetes mellitus)acuteApril 07, 2024 4:19pmVitamin D deficiencyacute April 07, 2024 4:19pmBMI 31.0-31.9,adultacuteApril 19, 2024 3:31pm Dietary counseling and surveillanceacuteApril 19, 2024 3:31pmHTN (hypertension)acuteApril 19, 2024 3:31pmHyperlipemiaacuteApril 19, 2024 3:02euD7UX (type 2 diabetes mellitus)acuteApril 19, 2024 3:31pmAnemia acuteJanuary 2024 2:00pmChronic kidney disease, stage IV (severe)acute June 09, 2024 2:00pmDiabetic nephropathy associated with type 2 diabetes mellitusacuteJanuary 2024 2:00pmHyperkalemiaacuteJanuary 2024 2:00pm HyperphosphatemiaacuteJanuary 2024 2:00pmPrimary hypertensionacuteJanuary 2024 2:32teA4RC (type 2 diabetes mellitus)acuteJanuary 2024 2:00pm Vitamin D deficiencyacuteJanuary 2024 2:00pm [facility] Work Phone: 1(803) 188-760810-17-2024 History of Present illness Narrative* Rohan Han, TOY - 03/11/2024 3:10 PM EDT Patient: Chelsea Diego : 1950 PCP: Tejas Stevens MD SUBJECTIVE This is a 73 y.o. male that presents today with a CC of elongated, thick nails. Pt states nails have been elongated and thick for many years and cause pain with ambulation in shoegear. Patient is a type 2 diabetic with controlled sugars and had history of left TMA in the recent past.Patient had 2 months of hospitalization with ICU stay including issue with sepsis pneumonia and end-stage renal disease. Patient also presents today for follow-up of dry skin and fissures to feet and has been using prescribed or recommended [id number] cream with positive improvement. Patient on past visit received prescription for diabetic shoes with toe filler left for TMA and states he has dropped off paperwork but awaits to be casted for devices and fitted for shoes Allergies: Allergies Allergen Reactions Cefepime Metformin Other Reaction(s): Other (See Comments) Kidney pain Lisinopril Rash Past Medical History: Past Medical History: Diagnosis Date Alcoholism ([facility]) Arthritis Broken ankle, right Broken collarbone Broken neck (CMS/[facility]) Bunion Cataract Compression fracture of C-spine ([facility]) 2010 T10-T12 DDD (degenerative disc disease), cervical DDD (degenerative disc disease), lumbar Depression (CMS/[facility]) Diabetic ulcer of left midfoot associated with type 2 diabetes mellitus, limited to breakdown of skin (CMS/[facility]) DM (diabetes mellitus) ([facility]) Elevated PSA Foot ulcer ([facility]) GERD (gastroesophageal reflux disease) History of elevated prostate specific antigen (PSA) History of medical problems 2010 degenrative change mid/lower thoracic spine Hx of shoulder surgery 2003 Hypertension (CMS/[facility]) Lumbar spondylolysis Neuropathy in diabetes ([facility]) Ocular palsy of right eye Osteomyelitis of left foot, unspecified type ([facility]) Prostate cancer ([facility]) PSA elevation Pulmonary arterial hypertension ([facility]) Substance abuse ([facility]) Type 2 diabetes mellitus with diabetic polyneuropathy, with long-term current use of insulin ([facility]) Vitamin D deficiency Weak urinary stream Medications: Current Outpatient Medications: amLODIPine (Norvasc) 10 MG tablet, Take 1 tablet (10 mg) by mouth Daily, Disp: 30 tablet, Rfl: 11 atorvastatin (Lipitor) 40 MG tablet, Take 40 mg by mouth at bedtime., Disp: , Rfl: bumetanide (Bumex) 2 MG tablet, TAKE 1 TABLET BY MOUTH DAILY, Disp: 30 tablet, Rfl: 3 cholecalciferol (Vitamin D-3) 50 MCG (2000 UT) tablet, 1 (one) time each day at the same time, Disp: , Rfl: clopidogrel (Plavix) 75 MG tablet, Take 75 mg by mouth in the morning., Disp: , Rfl: dapagliflozin (Farxiga) 10 MG, Daily, Disp: , Rfl: ergocalciferol (Vitamin D-2) 1.25 MG (67434 UT) capsule, Take 1.25 mg by mouth 1 (one) time per week, Disp: , Rfl: famotidine (Pepcid) 40 MG tablet, 40 mg in the morning and 40 mg before bedtime., Disp: , Rfl: gabapentin (Neurontin) 300 MG capsule, TAKE 1 CAPSULE BY MOUTH THREE TIMES DAILY (IN THE MORNING, IN THE EVENING, and BEFORE bedtime), Disp: 90 capsule, Rfl: 2 hydrOXYzine HCl (Atarax) 25 MG tablet, Take 1 tablet (25 mg) by mouth 4 (four) times a day as needed for anxiety, Disp: 60 tablet, Rfl: 2 insulin glargine (Basaglar KwikPen) 100 UNIT/ML pen, Inject under the skin at bedtime, Disp: , Rfl: insulin lispro protamine-insulin lispro (HumaLOG MIX 50/50 KWIKPEN) (50-50) 100 UNIT/ML injection, Inject under the skin 2 (two) times a day with meals, Disp: , Rfl: Lancets 28G misc, Test daily, Disp: 100 each, Rfl: 3 Lantus SoloStar 100 UNIT/ML pen, INJECT 20 UNITS SUBCUTANEOUSLY at BREAKFAST and AT BEDTIME, Disp: , Rfl: melatonin 3 MG tablet, Take 6 mg by mouth at bedtime, Disp: , Rfl: metoprolol succinate XL (Toprol-XL) 50 MG 24 hr tablet, Take 1 tablet (50 mg) by mouth Daily, Disp:30 tablet, Rfl: 11 sertraline (Zoloft) 100 MG tablet, Take 1 tablet (100 mg) by mouth Daily, Disp: 30 tablet, Rfl: 5 sevelamer carbonate (Renvela) 800 MG tablet, Take 2 tablets (1,600 mg) by mouth in the morning and 2 tablets (1,600 mg) at noon and 2 tablets (1,600 mg) in the evening. Take with meals., Disp: 180 tablet, Rfl: 5 spironolactone (Aldactone) 50 MG tablet, TAKE 1 TABLET BY MOUTH DAILY, Disp: 30 tablet, Rfl: 3 traZODone (Desyrel) 50 MG tablet, Take 1 tablet (50 mg) by mouth at bedtime, Disp: 30 tablet, Rfl: 5 Social History: Social History Socioeconomic History Marital status: Spouse name: Not on file Number of children: Not on file Years of education: Not on file Highest education level: Not on file Occupational History Not on file Tobacco Use Smoking status: Former Types: Cigars Passive exposure: Never Smokeless tobacco: Current Vaping Use Vaping status: Every Day Substance and Sexual Activity Alcohol use: Not Currently Comment: caffeine yes type: chocolate, coffee Drug use: Not Currently Types: Crack cocaine, Cocaine, Hashish, Marijuana, Mescaline, Opium, Oxycodone Sexual activity: Not Currently Partners: Female control/protection: Abstinence, None Other Topics Concern Not on file Social History Narrative Not on file Social Drivers of Health Financial Resource Strain: Not on file Food Insecurity: No Food Insecurity (01/21/2024) Received from [facility] Hunger Screening Within the past 12 months we worried whether our food would run out before we got money to buy more.: Never True Within the past 12 months the food we bought just didn't last and we didn't have money to get more.: Never True Transportation Needs: Not on file Physical Activity: Not on file Stress: Not on file Social Connections: Not on file Intimate Partner Violence: Unknown (07/17/2023) [facility] [place] Safety & Environment Fear of Current or Ex-Partner: Not on file Emotionally Abused: Not on file Physically Abused: Not on file Sexually Abused: Not on file Physically or Sexually Abused: Not on file Housing Stability: Not on file ROS: General: denies fever, chills, fatigue, malaise OBJECTIVE LE EXAM: DERM: Elongated thick yellow crumbly nails digits 1 through 5 of the right foot with left TMA site intact with greatly diminished dry and scaly skinTo bilateral feet noted Plus one pitting edema to bilateral ankles VASC: Positive DP and negative PT pedal pulses NEURO: 5.07 [place]ha monofilament test diminished to digits and forefoot bilaterally 125Hz tuning fork diminished bilaterally ORTHO: Positive pain on palpation to nails 1 through 5 of the right foot ASSESSMENT 1. Xerosis cutis 2. History of transmetatarsal amputation of left foot (HCC) ([facility]) 3. DM type 1 with diabetic peripheral neuropathy ([facility]) 4. Onychomycosis 5. Toe pain, right PLAN Discussed proper foot care with patient today. Debride nails in length and thickness digits 1 through 5 of the left foot Patient educated today on proper diabetic foot care including monitoring feet daily for any signs of infection openings in the skin or irregularities to both feet. Patient had a diabetic neurologicalexam today to both their feet and discussed proper shoe gear. Patient education on condition and treatment of condition. patient to continue with hydrating creams to feet twice daily Rohan Han DPM documented in this encounterSaint John's [facility]ree[facility] Medical [id number] History of Present illness Narrative* Tejas Stevens MD - 01/27/2024 4:31 PM EDTAssociated Problem(s): Primary insomnia Sleeping well with trazodone and continue. * Tejas Stevens MD - 01/27/2024 4:31 PM EDTAssociated Problem(s): Myoclonus Developed symptoms and possible side effect from seroquel and stop. Monitor and if persists may need to see neurology. * Tejas Stevens MD - 01/27/2024 3:45 PM EDT Images from the original note were not included. Subjective Patient ID: Chelsea Diego Jr is a 73 y.o. male who presents for Follow-up (Jerking of upper body, /) and Extremity Weakness (weakness). C/o jerking and arms twitching for several weeks. Symptoms occur in arms, hands, and shoulders. Notice if hold phone after a few minutes arms will twitch and jerk. If sitting at rest typically do nothave problems but worse with use of arms. C/o legs weak and at times give out. Patient has fallen on occasion. PT completed and trying to get insurance to approve additional visits. Taking seroquel at night to help with sleep. Resumed trazodone and helps with sleep. Review of Systems Constitutional: Negative for fatigue. Respiratory: Negative for cough, shortness of breath and wheezing. Cardiovascular: Negative for chest pain and palpitations. Gastrointestinal: Negative for abdominal pain, diarrhea, nausea and vomiting. Genitourinary: Negative for dysuria. Objective Physical Exam Constitutional: General: He is not in acute distress. Appearance: Normal appearance. HENT: Head: Normocephalic. Right Ear: Tympanic membrane and ear canal normal. Left Ear: Tympanic membrane and ear canal normal. Eyes: Extraocular Movements: Extraocular movements intact. Pupils: Pupils are equal, round, and reactive to light. Cardiovascular: Rate and Rhythm: Normal rate and regular rhythm. Heart sounds: No murmur heard. No friction rub. No gallop. Pulmonary: Breath sounds: Normal breath sounds. No wheezing, rhonchi or rales. Abdominal: General: Bowel sounds are normal. There is no distension. Palpations: Abdomen is soft. Tenderness: There is no abdominal tenderness. There is no guarding or rebound. Musculoskeletal: Left lower leg: No edema. Neurological: Mental Status: He is alert. Assessment/Plan Problem List Items Addressed This Visit Primary insomnia Sleeping well with trazodone and continue. Myoclonus - Primary Developed symptoms and possible side effect from seroquel and stop. Monitor and if persists may need to see neurology. documented in this encounterSaint John's Breech Regional Medical [id number] Evaluation + Plan note* Assessment & Plan Note - SHALOM Vincent - 01/21/2024 2:44 PM EDT Associated Problem(s): Prostate cancer ([facility]) We will see him back in one year with a PSA or sooner if any problems [facility]08-28-2024 Miscellaneous Notes* Assessment & Plan Note - SHALOM Vincent - 01/21/2024 2:44 PM EDTAssociated Problem(s): Prostate cancer ([facility]) We will see him back in one year with a PSA or sooner if any problems documented in this encounterMadison Health08-28-2024 History of Present illness Narrative* SHALOM Vincent - 01/21/2024 2:15 PM EDT Images from the original note were not included. [address] [place] [address] A [facility] [id number] Patient: Chelsea Diego Jr. Date of : 1950 Encounter Date: 01/21/2024 History of Present Illness: Chief Complaint: Annual follow up w/PSA The patient is a 73 y.o. male, an established patient, and is here for follow- up. He has a history of prostate cancer. He underwent prostatectomy in 2012. He also has a history of phimosis and underwent circumcision in 2019. He was last in the office 12/04/22 PSA 01/16/24: <0.01 Since he was last here, he had gangrene of his foot and was given vancomycin. It sounds like he hadto go on dialysis and is still seeing Nephrology. He denies any current urologic concerns. He reports that his stream is fine. No gross hematuria. Urinalysis today: No results for input(s): EXTPOCURCO , EXTPOCURCH , EXTPOCAPP , EXTPOCURBS , EXTPOCURBIL , EXTPOCUKET , EXTPOCUSPG , EXTPOCUHGB , EXTPOCUPRO , EXTPOCUURO , EXTPOCULEU , EXTPOCUNIT , EXTPOCUWBC , EXTPOCUBLD , EXTPOCURBC , EXTPOCUCRY , EXTPOCUBAC , EXTPOCUTREP , EXTPOCUPH , EXTPOCUL EE in the last 72 hours. Last BUN and creatinine: Lab Results Component Value Date BUN 23 10/17/2023 Lab Results Component Value Date CREATININE 1.22 (H) 10/17/2023 Last PSA: Lab Results Component Value Date PSA <0.01 01/16/2024 PSA <0.01 10/29/2022 PSA <0.01 03/20/2022 PSA <0.01 08/24/2021 PSA <0.01 02/26/2021 No results found for: PROSTATICSP Past Medical, Family, and Social History Update: The following portions of the patient's history were reviewed and updated as appropriate: allergies, current medications, past family history, past medical history, past social history, past surgicalhistory and problem list. Past Medical History: Diagnosis Date Alcohol abuse Arthritis Back pain Cataract Diabetes mellitus type 2, controlled ([facility]) Drug abuse ([facility]) Fractures GERD (gastroesophageal reflux disease) Hyperlipidemia Hypertension Prostate cancer ([facility]) Trachea, foreign body 07/2023 Visual impairment Past Surgical History: Procedure Laterality Date APPENDECTOMY CHOLECYSTECTOMY CIRCUMCISION N/A 12/06/2019 Performed by Michael Armando MD at [facility] EXTRACTION CATARACT INTRAOCULAR LENS Right 06/20/2022 Performed by Kim Juan MD at [facility] EXTRACTION CATARACT INTRAOCULAR LENS Left 06/06/2022 Performed by Kim Juan MD at [facility] FOOT SURGERY 07/16/2022 left toes amputated HERNIA REPAIR Right inguinal PROSTATE SURGERY SHOULDER ARTHROSCOPY Bilateral TONSILLECTOMY VASECTOMY Family History Problem Relation Age of Onset Stroke Mother Diabetes Mother Lupus Sister Current Outpatient Medications Medication Sig Dispense Refill amLODIPine (NORVASC) 10 mg tablet bumetanide (BUMEX) 2 mg tablet clopidogreL (PLAVIX) 75 mg tablet TAKE 1 TABLET BY MOUTH ONCE DAILY ergocalciferol (DRISDOL) 1,250 mcg (50,000 unit) capsule Take 1 capsule (50,000 Units total) by mouth. famotidine (PEPCID) 20 mg tablet gabapentin (NEURONTIN) 100 mg capsule Take 3 capsules (300 mg total) by mouth 3 (three) times a day. hydrOXYzine (ATARAX) 25 mg tablet insulin glargine (LANTUS, BASAGLAR) 100 unit/mL (3 mL) insulin pen Inject 40 Units under the skin in the morning and 40 Units before bedtime. insulin glargine (LANTUS, SEMGLEE) 100 unit/mL (3 mL) insulin pen 18 Units. insulin lispro (HumaLOG) 100 unit/mL injection Inject under the skin 3 (three) times a day before meals. Sliding scale based on blood sugar insulin lispro (HumaLOG) 100 unit/mL insulin pen See Admin Instructions. ipratropium (ATROVENT) 42 mcg (0.06 %) nasal spray instill 2 (TWO) sprays IN EACH NOSTRIL THREE TIMES DAILY NEEDED for runny nose melatonin (CIRCADIN) capsule Daily at bedtime metoprolol succinate XL (TOPROL XL) 50 mg 24 hr tablet Take 1 tablet (50 mg total) by mouth in the morning. QUEtiapine (SEROquel) 100 mg tablet sertraline (ZOLOFT) 100 mg tablet Take 1 tablet (100 mg total) by mouth. sevelamer (RENVELA) 800 mg tablet spironolactone (ALDACTONE) 50 mg tablet traMADol ER (ULTRAM-ER) 200 MG 24 hr tablet Take 1 tablet (200 mg total) by mouth daily as needed. traZODone (DESYREL) 50 mg tablet atorvastatin (LIPITOR) 40 mg tablet Take 1 tablet (40 mg total) by mouth nightly. (Patient not taking: Reported on 01/21/2024) baclofen (LIORESAL) 20 mg tablet Take 1 tablet (20 mg total) by mouth 3 (three) times a day. prn (Patient not taking: Reported on 01/21/2024) celecoxib (CeleBREX) 200 mg capsule Take 1 capsule (200 mg total) by mouth in the morning and 1 capsule (200 mg total) before bedtime. (Patient not taking: Reported on 01/21/2024) dulaglutide (TRULICITY) 3 mg/0.5 mL pen injector Inject 3 mg under the skin once a week. (Patient not taking: Reported on 01/21/2024) DULoxetine (CYMBALTA) 60 mg capsule Take 1 capsule (60 mg total) by mouth in the morning. (Patient not taking: Reported on 01/21/2024) ibuprofen (ADVIL,MOTRIN) 200 mg tablet Take 1 tablet (200 mg total) by mouth every 6 (six) hours asneeded for pain. (Patient not taking: Reported on 01/21/2024) omeprazole (PriLOSEC) 20 mg capsule Take 1 capsule (20 mg total) by mouth every morning before breakfast. (Patient not taking: Reported on 01/21/2024) No current facility-administered medications for this visit. (All medications reviewed and updated by provider since last office visit or hospitalization) Allergies: Cefepime, Lisinopril, and Metformin Tobacco History: Social History Tobacco Use Smoking Status Some Days Types: Cigars Smokeless Tobacco Never Tobacco Comments 2 per day (If patient a smoker, smoking cessation counseling offered) Social History: Social History Substance and Sexual Activity Alcohol Use Not Currently Review of Systems: General: Negative for chills and fever. Cardiovascular: Negative for chest pain and shortness of breath. Gastrointestinal: Negative for constipation, diarrhea, nausea, and vomitting. -per HPI Physical Exam: BP 119/69 Pulse 76 Ht 172.7 cm (5' 8 ) Wt 102.5 kg (226 lb) BMI 34.36 kg/m Constitutional: He appears well-developed. No distress. Pulmonary/Chest: Effort normal. No respiratory distress. Neurological: He is alert and oriented for age. Gait: uses a cane Nursing note and vitals reviewed. Assessment and Plan: Chelsea was seen today for follow-up. Diagnoses and all orders for this visit: Prostate cancer ([facility]) - Prostatic specific antigen, diagnostic; Future Problem List Genitourinary Prostate cancer ([facility]) - Primary Overview ====01/21/24====PSA <0.01 ====12/04/22==== PSA <0.01 ====01/02/22====PSA 08/24/21: <0.01 ==== 12/20/2019 ==== most recent PSA undetectable. PSA 6 months ==== 07/22/2019 ==== pt lost to f/u. Needs psa +++++++++ 07/22/2019 ALLSCRIPTS SUMMARY +++++++++++ ====December 2012 ==== ####### December 2012 right-sided nerve sparing da Shira prostatectomy [place] 3+4 equals 7 left side much greater [...] July 2014 ==== PSA in 4 months Current Assessment & Plan We will see him back in one year with a PSA or sooner if any problems Relevant Orders Prostatic specific antigen, diagnostic Follow-up: Dr. Armando in one year with PSA SHALOM VINCENT This note was created with the assistance of a speech recognition program. While intending to generate a timely document that accurately reflects the content of the visit, no guarantee can be provided that every grammatical or spelling mistake has been or will be identified or corrected. Thank you for your understanding. SHALOM Vincent 01/21/24 1445 documented in this encounterMadison Health08-23-2024 Miscellaneous Notes* Telephone Encounter - Bere Rankin CMA - 01/16/2024 12:25 PM EDT Tried to contact patient in regards to PSA order 12-04-22 not completed with us and was wondering if he went somewhere else to get it done. Was NOT able to LVM due to mailbox being full. documented in this encounterMadison Health08-23-2024 Telephone encounter Note* Telephone Encounter - Bere Rankin CMA - 01/16/2024 12:25 PM EDT Tried to contact patient in regards to PSA order 12-04-22 not completed with us and was wondering if he went somewhere else to get it done. Was NOT able to LVM due to mailbox being full. [facility]08-20-2024 History of Present illness Narrative* Tejas Stevens MD - 01/13/2024 1:49 PM EDTAssociated Problem(s): Medicare annual wellness visit, subsequent Reviewed recent labs. Discussed proper diet and regular aerobic exercise. Need aerobic exercise 5-6days a week for 30 minutes at a time. Smaller portions and limit total calories. Colonoscopy every 10 years. Tetanus every 10 years. Advised not to smoke. Discussed daily Aspirin therapy. * Tejas Stevens MD - 01/13/2024 1:00 PM EDT Images from the original note were not included. Subjective Patient ID: Chelsea Diego Jr is a 73 y.o. male who presents for Medicare Annual Wellness Visit Subsequent. Presents for medicare annual wellness visit. Patient stable today. Weight down 27 pounds in past year after recent illness and hospitalization but up 8 pounds since last visit. Appetite returning andstarting to improve. In PT and balance getting better. Most days doing well and strength returning.Following with endo. Review of Systems Constitutional: Negative for fatigue. Respiratory: Negative for cough, shortness of breath and wheezing. Cardiovascular: Negative for chest pain and palpitations. Gastrointestinal: Negative for abdominal pain, diarrhea, nausea and vomiting. Genitourinary: Negative for dysuria. Objective Physical Exam Constitutional: General: He is not in acute distress. Appearance: Normal appearance. HENT: Head: Normocephalic. Right Ear: Tympanic membrane and ear canal normal. Left Ear: Tympanic membrane and ear canal normal. Eyes: Extraocular Movements: Extraocular movements intact. Pupils: Pupils are equal, round, and reactive to light. Cardiovascular: Rate and Rhythm: Normal rate and regular rhythm. Heart sounds: No murmur heard. No friction rub. No gallop. Pulmonary: Breath sounds: Normal breath sounds. No wheezing, rhonchi or rales. Abdominal: General: Bowel sounds are normal. There is no distension. Palpations: Abdomen is soft. Tenderness: There is no abdominal tenderness. There is no guarding or rebound. Musculoskeletal: General: Normal range of motion. Left lower leg: No edema. Neurological: General: No focal deficit present. Mental Status: He is alert. Cranial Nerves: No cranial nerve deficit. Deep Tendon Reflexes: Reflexes normal. Assessment/Plan Problem List Items Addressed This Visit Medicare annual wellness visit, subsequent - Primary Reviewed recent labs. Discussed proper diet and regular aerobic exercise. Need aerobic exercise 5-6days a week for 30 minutes at a time. Smaller portions and limit total calories. Colonoscopy every 10 years. Tetanus every 10 years. Advised not to smoke. Discussed daily Aspirin therapy. documented in this encounterSaint John's Breech [facility] Medical [id number] [facility] Note Chief Complaint: Patient here for [facility] follow up for new onset CHF. He was seen as inpatient consult by Dr. Prater while inpatient. He takes Plavix for hx of LE angiogram about 1 year ago at [facility], but denies stenting. 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 and/or emt i/99 I have asked him to weigh himself daily at the same time in the morning; if he notices any increasing weight by 3 pounds or more he is to take an extra dose of Bumex Would recommend following up with nephrology and endocrinology He is to follow-up with his vascular surgeon in [facility] in 4-6 months or sooner as needed Ronel Aquino MD, MPH, [facility], [facility], [facility] Interventional Cardiology Pager Email: [email or web address] Miscellaneous Notes* Telephone Encounter - Bere Rankin CMA - 12/12/2023 10:39 AM EDT Called patient and spouse that is listed on patients contact list. Unable to LVM on both Phone numbers listed chelsea mailbox was full and Rita's number disconnects when dialing. Reaching out to patient in regards to uncompleted PSA order (12/04/22). documented in this encounterHock[facility] [employer] [id number] Telephone encounter Note* Telephone Encounter - Bere Rankin CMA - 12/12/2023 10:39 AM EDT Called patient and spouse that is listed on patients contact list. Unable to LVM on both Phone numbers listed chelsea mailbox was full and Rita's number disconnects when dialing. Reaching out to patient in regards to uncompleted PSA order (12/04/22). [employer]03-30-2024 Progress note Author Sury Winkler [facility] August 23, 2023 11:54amNote Date/TimeMarch 2023 11:55[place] [address] Nephrology Progress Note Signed Patient: Chelsea Diego JR MR#: [id number] : 1950 Acct:[id number] Age/Sex: 72 / M Adm Date: 4 Loc: Room: 8N8409-5 Type: ADM IN Attending Dr: Arnaldo Thomas MD Copies to: ~ Date of Service: 08/23/2023 Subjective Subjective Narrative: Mr. Diego is a 72-year-old male with history of DM2, HTN, PAD and prostate cancer. Patient was recently started on hemodialysis during his admission in June 2023 for SONYA possibly related to ATN versus Staph aureus glomerulonephritis. Patient had left diabetic wound s/p tarsometatarsal amputa tion. Creatinine has increased up to 5 mg/dL with no evidence of recovery. Patient was discharged to [facility] facility. Patient presented to [facility] from his nursing facility with severe shortness of breath requiring intubation. Chest x-ray showed bilateral pulmonary infiltrate with possible pulmonary edema. Subsequently the patient was transferred to [facility] and he continues to be on vent. Respiratory swab showed evidence of influenza A. Patient was treatedfor healthcare associated pneumonia with vancomycin and meropenem. Troponin was found to be elevated up to 1700. Hemoglobin was only 6.5 g/dL in setting of infection. Cardiology evaluated the patientand no intervention is planned at this point atthe patient most likely has type II demand decreasedcardiac perfusion. Patientrequired prolonged hospitalization and eventually he [...] 1375 / 1375 1218 / 1218 2128 Output Total 1623 / 1623 175 / 175 125 / 125 50 / 50 Balance 1200 / 1200 1093 / 1093 2078 Weight 84.6 kg 83.4 kg 85.8 kg 87.3 kg Meds and Allergies Meds: Active Medications Acetaminophen (Acetaminophen 650 Mg/20.3 Ml Oral.Susp) 650 mg NG-TUBE Q6H PRN PRN Reason: Fever or Pain Stop: 08/12/24 13:59 Last Admin: 08/23/23 08:27 Dose: 650 mg Albuterol (Albuterol Hfa 200 Puff/18 Gm Inhaler) 6 puff VENT Q6HR [facility] Stop: 07/31/24 11:59 Last Admin: 08/23/23 11:01 Dose: 6 puff Amlodipine Besylate (Amlodipine 10 Mg Tablet) 10 mg OG-TUBE DAILY [facility] Stop: 08/16/24 08:59 Last Admin: 08/23/23 08:27 Dose: 10 mg Aspirin (Aspirin 81 Mg Tab.Chew) 81 mg NG-TUBE DAILY [facility] Stop: 08/16/24 15:59 Last Admin: 08/23/23 08:27 Dose: 81 mg Clopidogrel Bisulfate (Clopidogrel Bisulfate 75 Mg Tablet) 75 mg NG-TUBE DAILY [facility] Stop: 08/16/24 15:59 Last Admin: 08/23/23 08:27 Dose: 75 mg Darbepoetin Abisai (Darbepoetin Abisai In Polysorbat 60 Mcg/Ml Vial) 60 mcg IV- PUSHQWEEK [facility]; Protocol Stop: 08/12/24 09:04 Last Admin: 08/20/23 13:47 Dose: 60 mcg Dextrose (Dextrose 50% In Water 25 Gm/50 Ml Syringe) 0 gm IV-PUSH PRN PRN PRN Reason: Hypoglycemia Stop: 07/31/24 08:04 Last Admin: 08/19/23 05:25 Dose: 25 gm Diclofenac Sodium (Diclofenac Sodium 1% Gel 100 Gm Tube) 4 gm TOPICAL QID [facility] Stop: 08/16/24 17:59 Last Admin: 08/23/23 08:28 Dose: 4 gm Fentanyl Citrate (Fentanyl/Pf 100 Mcg/2 Ml Vial) 50 mcg IV-PUSH Q2H PRN PRN Reason: tracheostomy pain Last Admin: 08/22/23 19:40 Dose: 50 mcg Ferric Sodium Gluconate Complex (Sodium Ferric Gluconat/Sucrose 62.5 Mg/5 Ml Vial) 125 mg IV-PUSH 3XW [facility] Stop: 08/25/23 09:01 Gabapentin (Gabapentin 300 Mg/6 Ml Udc) 100 mg NG-TUBE QPM [facility] Stop: 08/16/24 20:59 Last Admin: 08/22/23 20:33 Dose: 100 mg Glucose (Dextrose 40% Gel 15 Gm Tube) 0 gm PO PRN PRN PRN Reason: Hypoglycemia Stop: 07/31/24 08:04 Heparin Sodium (Porcine) (Heparin 5,000 Unit/Ml Vial) 5,000 unit SUBCUT Q8HR [facility] Stop: 08/01/24 13:59 Last Admin: 08/23/23 05:37 [...] (Dextrose) 100 mls @ 4.84 mls/hr IV .[id number] [facility]; Protocol Stop: 08/04/24 10:14 Last Titration: 08/23/23 06:15 Dose: 0 mcg/kg/hr, 0 mls/hr Insulin Aspart (Insulin Aspart 300 Units/3 Ml Insuln.Pen) 0 units SUBCUT Q6HR [facility]; Protocol Stop: 07/31/24 11:59 Last Admin: 08/23/23 05:37 Dose: 4 units Insulin Glargine (Insulin Glargine 300 Units/3 Ml Insuln.Pen) 20 units SUBCUT BID [facility] Stop: 08/19/24 20:59 Last Admin: 08/23/23 08:28 Dose: 20 units Lansoprazole (Lansoprazole Solutab *Nf* 30 Mg Tab.Rap.Dr) 30 mg PEG DAILY [facility] Stop: 08/16/24 08:59 Last Admin: 08/22/23 09:43 Dose: 30 mg Magnesium Hydroxide (Magnesium Hydroxide Susp 30 Ml Udc) 30 ml PO DAILY PRN PRN Reason: Constipation Stop: 08/02/24 22:13 Metoprolol Tartrate (Metoprolol Tartrate 5 Mg/5 Ml Vial) 5 mg IV-PUSH Q4H PRN PRN Reason: Blood Pressure Stop: 08/13/24 12:28 Metoprolol Tartrate (Metoprolol Tartrate 50 Mg Tablet) 50 mg NG-TUBE BID [facility] Stop: 08/15/24 20:59 Last Admin: 08/23/23 08:27 [...] have reviewed the report(s) and am incorporating anyfindings in the treatment plan of this patient [...] Assessment/Problem Details: He has a type II PR likely due to demand ischemia in setting [...] <Electronically signed by MD Sury Winkler> 08/23/23 [address] [facility] Work Phone: [phone]) 230-265903-30-2024 Progress note Author Mariia Reyna [facility] August 23, 2023 11:22amNote Date/TimeMarch 2023 11:22[place] [address] Pulmonology Progress Note Signed Patient: Chelsea Diego JR MR#: [id number] : 1950 Acct:[id number] Age/Sex: 72 / M Adm Date: 4 Loc: Room: [address] [place] [address] Type: ADM IN Attending Dr: Arnaldo Thomas [...] / 1093 464 / 2079 1615 / 2078 Weight 87.3 kg Labs 08/21/23 05:47 08/22/23 [...] signed by Mariia Reyna MD> 08/23/23 1122 [facility] Work Phone: 1(724) 264-590903-29-2024 Progress note Author Arnaldo Thomas [facility] August 22, 2023 12:13pmNote Date/TimeMarch 2023 12:13pm[place] [address] Hospitalist Progress Note Signed Patient: Chelsea Diego JR MR#: [id number] : 1950 Acct:[id number] Age/Sex: 72 / M Adm Date: 4 Loc: Room: [address] [place] [address] Type: ADM IN Attending Dr: Arnaldo Thomas [...] 06:08 Dextrose IV 08/04/24 10:14 0 mcg/kg/hr .[id number] [facility] 0 mls/hr Titration Protocol 0.2 MCG/KG/HR [...] to have leukocytosis with thrombocytosis. Patient is r eceiving IViron. Continue basal insulin with sliding scale coverage. Nutrition through NG tube. Continue aspirin, Plavix, amlodipine and DVT prophylaxis with subcutaneous heparin. Documented By: Arnaldo Thomas MD 08/22/23 1209 Signed By: <Electronically signed by Arnaldo Thomas MD> 08/22/23 1213 [facility] Work Phone: 1(159) [phone] Progress note Author Mehul Garrett [facility] August 22, 2023 12:03pmNote Date/TimeMarch 2023 8:03[place] [address] Pulmonology Progress Note Signed Patient: Chelsea Diego JR MR#: [id number] : 1950 Acct:[id number] Age/Sex: 72 / M Adm Date: 4 Loc: Room: [address] [place] [address] Type: ADM IN Attending Dr: Arnaldo Thomas [...] expedited appeal of LTAC transfer. [facility] but have little else to recommend at this point. Documented By: Mehul Garrett MD 4 0802 Signed By: <Electronically signed by MD Mehul Garrett> 08/22/23 1203 [facility] Work Phone: 1(363) 595-605703-29-2024 Progress note Author Sury Winkler [facility] August 22, 2023 11:30amNote Date/TimeMarch 2023 11:30[place] [address] Nephrology Progress Note Signed Patient: Chelsea Diego JR MR#: [id number] : 1950 Acct:[id number] Age/Sex: 72 / M Adm Date: 4 Loc: Room: [address] [place] [address] Type: ADM IN Attending Dr: Arnaldo Thomas MD Copies to: ~ Date of Service: 08/22/2023 Subjective Subjective Narrative: Mr. Diego is a 72-year-old male with history of DM2, HTN, PAD and prostate cancer. Patient was recently started on hemodialysis during his admission in June 2023 for SONYA possibly related to ATN versus Staph aureus glomerulonephritis. Patient had left diabetic wound s/p tarsometatarsal amputa tion. Creatinine has increased up to 5 mg/dL with no evidence of recovery. Patient was discharged to [facility] facility. Patient presented to [facility] from his nursing facility with severe shortness of breath requiring intubation. Chest x-ray showed bilateral pulmonary infiltrate with possible pulmonary edema. Subsequently the patient was transferred to [facility] and he continues to be on vent. Respiratory swab showed evidence of influenza A. Patient was treatedfor healthcare associated pneumonia with vancomycin and meropenem. Troponin was found to be elevated up to 1700. Hemoglobin was only 6.5 g/dL in setting of infection. Cardiology evaluated the patientand no intervention is planned at this point atthe patient most likely has type II demand decreasedcardiac perfusion. Patientrequired prolonged hospitalization and eventually he [...] Puff/18 Gm Inhaler) 6 puff VENT Q6HR [facility] Stop: 07/31/24 11:59 Last Admin: 08/22/23 05:06 Dose: 6 puff Amlodipine Besylate (Amlodipine 10 Mg Tablet) 10 mg OG-TUBE DAILY [facility] Stop: 08/16/24 08:59 Last Admin: 08/22/23 09:42 Dose: 10 mg Aspirin (Aspirin 81 Mg Tab.Chew) 81 mg NG-TUBE DAILY [facility] Stop: 08/16/24 15:59 Last Admin: 08/22/23 09:42 Dose: 81 mg Clopidogrel Bisulfate (Clopidogrel Bisulfate 75 Mg Tablet) 75 mg NG-TUBE DAILY [facility] Stop: 08/16/24 15:59 Last Admin: 08/22/23 09:42 Dose: 75 mg Darbepoetin Abisai (Darbepoetin Abisai In Polysorbat 60 Mcg/Ml Vial) 60 mcg IV- PUSHQWEEK [facility]; Protocol Stop: 08/12/24 09:04 Last Admin: 08/20/23 13:47 Dose: 60 mcg Dextrose (Dextrose 50% In Water 25 Gm/50 Ml Syringe) 0 gm IV-PUSH PRN PRN PRN Reason: Hypoglycemia Stop: 07/31/24 08:04 Last Admin: 08/19/23 05:25 Dose: 25 gm Diclofenac Sodium (Diclofenac Sodium 1% Gel 100 Gm Tube) 4 gm TOPICAL QID [facility] Stop: 08/16/24 17:59 Last Admin: 08/22/23 09:42 Dose: 4 gm Fentanyl Citrate (Fentanyl/Pf 100 Mcg/2 Ml Vial) 50 mcg IV-PUSH Q2H PRN PRN Reason: tracheostomy pain Last Admin: 08/22/23 09:41 Dose: 50 mcg Ferric Sodium Gluconate Complex (Sodium Ferric Gluconat/Sucrose 62.5 Mg/5 Ml Vial) 125 mg IV-PUSH 3XW [facility] Stop: 08/25/23 09:01 Gabapentin (Gabapentin 300 Mg/6 Ml Udc) 100 mg NG-TUBE QPM [facility] Stop: 08/16/24 20:59 Last Admin: 08/21/23 21:42 [...] (Dextrose) 100 mls @ 4.84 mls/hr IV .[id number] [facility]; Protocol Stop: 08/04/24 10:14 Last Titration: 08/22/23 06:08 Dose: 0 mcg/kg/hr, 0 mls/hr Insulin Aspart (Insulin Aspart 300 Units/3 Ml Insuln.Pen) 0 units SUBCUT Q6HR [facility]; Protocol Stop: 07/31/24 11:59 Last Admin: 08/22/23 05:35 Dose: 3 units Insulin Glargine (Insulin Glargine 300 Units/3 Ml Insuln.Pen) 20 units SUBCUT BID [facility] Stop: 08/19/24 20:59 Last Admin: 08/22/23 09:43 Dose: 20 units Lansoprazole (Lansoprazole Solutab *Nf* 30 Mg Tab.Rap.Dr) 30 mg PEG DAILY [facility] Stop: 08/16/24 08:59 Last Admin: 08/22/23 09:43 Dose: 30 mg Magnesium Hydroxide (Magnesium Hydroxide Susp 30 Ml Udc) 30 ml PO DAILY PRN PRN Reason: Constipation Stop: 08/02/24 22:13 Metoprolol Tartrate (Metoprolol Tartrate 5 Mg/5 Ml Vial) 5 mg IV-PUSH Q4H PRN PRN Reason: Blood Pressure Stop: 08/13/24 12:28 Metoprolol Tartrate (Metoprolol Tartrate 50 Mg Tablet) 50 mg NG-TUBE BID [facility] Stop: 08/15/24 20:59 Last Admin: 08/22/23 09:42 [...] Turbid A Urine pH 5.0 Ur Specific D[place] 1.026 Urine Protein 30 H Urine Glucose [...] have reviewed the report(s) and am incorporating anyfindings in the treatment plan of this patient [...] Assessment/Problem Details: He has a type II PR likely due to demand ischemia in setting [...] while he has respiratory distress versus ATN. Iwcee skip dialysis today, I will check spot [...] signed by MD Sury Winkler> 08/22/23 1130 [facility] Work Phone: 1(846) 151-195203-28-2024 Progress note Author Mehul Garrett [facility] August 21, 2023 5:23pmNote Date/TimeMarch 2023 5:24[place] [address] Pulmonology Progress Note Signed Patient: Chelsea Diego JR MR#: [id number] : 1950 Acct:[id number] Age/Sex: 72 / M Adm Date: 4 Loc: Room: [address] [place] [address] Type: ADM IN Attending Dr: Arnaldo Thomas [...] chronic respiratory failure on Micafungin and on daytimepressure support and nighttime volume control with nocturnal [...] rehabilitation. Case was discussed with infectious disease data warehouse consultant with concerns for possible C. difficile. We await expedited appeal after placement at long-term acute care facility was rejected. Documented By: Mehul Garrett MD 4 1720 Signed By: <Electronically signed by MD Mehul Garrett> 08/21/23 1723 [facility] Work Phone: 1(696) 435-494503-28-2024 Progress note Author Arnaldo Thomas [facility] August 21, 2023 12:50pmNote Date/TimeMarch 2023 12:50[place] [address] Hospitalist Progress Note Signed Patient: Chelsea Diego JR MR#: [id number] : 1950 Acct:[id number] Age/Sex: 72 / M Adm Date: 4 Loc: Room: [address] [place] [address] Type: ADM IN Attending Dr: Arnaldo Thomas [...] 07:44 Dextrose IV 08/04/24 10:14 Not Given .[id number] [facility] Protocol 0.2 MCG/KG/HR Micafungin Sodium 100 [...] signed by Arnaldo Thomas MD> 08/21/23 1250 [facility] Work Phone: 1(258) [phone] Progress note Author Sury [facility] August 21, 2023 11:17amNote Date/TimeMarch 2023 11:12[place] [address] Nephrology Progress Note Signed Patient: Chelsea Diego JR MR#: [id number] : 1950 Acct:[id number] Age/Sex: 72 / M Adm Date: 4 Loc: Room: [address] [place] [address] Type: ADM IN Attending Dr: Arnaldo Thomas MD Copies to: ~ Date of Service: 08/21/2023 Subjective Subjective Narrative: Mr. Diego is a 72-year-old male with history of DM2, HTN, PAD and prostate cancer. Patient was recently started on hemodialysis during his admission in June 2023 for SONYA possibly related to ATN versus Staph aureus glomerulonephritis. Patient had left diabetic wound s/p tarsometatarsal amputa tion. Creatinine has increased up to 5 mg/dL with no evidence of recovery. Patient was discharged to [facility] facility. Patient presented to [facility] from his nursing facility with severe shortness of breath requiring intubation. Chest x-ray showed bilateral pulmonary infiltrate with possible pulmonary edema. Subsequently the patient was transferred to [facility] and he continues to be on vent. Respiratory swab showed evidence of influenza A. Patient was treatedfor healthcare associated pneumonia with vancomycin and meropenem. Troponin was found to be elevated up to 1700. Hemoglobin was only 6.5 g/dL in setting of infection. Cardiology evaluated the patientand no intervention is planned at this point atthe patient most likely has type II demand decreasedcardiac perfusion. Patientrequired prolonged hospitalization and eventually he [...] has been stable. He has elevatedferritin 938 howeveriron saturation is only 12.3%. He continues to [...] Puff/18 Gm Inhaler) 6 puff VENT Q6HR [facility] Stop: 07/31/24 11:59 Last Admin: 08/21/23 05:20 Dose: 6 puff Amlodipine Besylate (Amlodipine 10 Mg Tablet) 10 mg OG-TUBE DAILY [facility] Stop: 08/16/24 08:59 Last Admin: 08/21/23 09:02 Dose: 10 mg Aspirin (Aspirin 81 Mg Tab.Chew) 81 mg NG-TUBE DAILY [facility] Stop: 08/16/24 15:59 Last Admin: 08/21/23 09:02 Dose: 81 mg Clopidogrel Bisulfate (Clopidogrel Bisulfate 75 Mg Tablet) 75 mg NG-TUBE DAILY [facility] Stop: 08/16/24 15:59 Last Admin: 08/21/23 09:02 Dose: 75 mg Darbepoetin Abisai (Darbepoetin Abisai In Polysorbat 60 Mcg/Ml Vial) 60 mcg IV- PUSHQWEEK [facility]; Protocol Stop: 08/12/24 09:04 Last Admin: 08/20/23 [...] We@0900 [facility] Stop: 08/12/24 09:04 Last Admin: 08/20/23 17:57 [...] (Dextrose) 100 mls @ 4.84 mls/hr IV .[id number] [facility]; Protocol Stop: 08/04/24 10:14 Last Admin: 08/21/23 07:44 Dose: Not Given Micafungin Sodium 100 mg/ (Sodium Chloride) 105 mls @ 105 mls/hr IV Q24H [facility] Stop: 08/21/23 16:59 Last Infusion: 08/20/23 19:00 Dose: Infused Insulin Aspart (Insulin Aspart 300 Units/3 Ml Insuln.Pen) 0 units SUBCUT Q6HR [facility]; Protocol Stop: 07/31/24 11:59 Last Admin: 08/21/23 05:34 Dose: 3 units Insulin Glargine (Insulin Glargine 300 Units/3 Ml Insuln.Pen) 20 units SUBCUT BID [facility] Stop: 08/19/24 20:59 Last Admin: 08/21/23 09:02 Dose: 20 units Lansoprazole (Lansoprazole Solutab *Nf* 30 Mg Tab.Rap.Dr) 30 mg PEG DAILY [facility] Stop: 08/16/24 08:59 Last Admin: 08/21/23 09:02 Dose: 30 mg Magnesium Hydroxide (Magnesium Hydroxide Susp 30 Ml Udc) 30 ml PO DAILY PRN PRN Reason: Constipation Stop: 08/02/24 22:13 Metoprolol Tartrate (Metoprolol Tartrate 5 Mg/5 Ml Vial) 5 mg IV-PUSH Q4H PRN PRN Reason: Blood Pressure Stop: 08/13/24 12:28 Metoprolol Tartrate (Metoprolol Tartrate 50 Mg Tablet) 50 mg NG-TUBE BID [facility] Stop: 08/15/24 20:59 Last Admin: 08/21/23 09:02 [...] have reviewed the report(s) and am incorporating anyfindings in the treatment plan of this patient [...] Assessment/Problem Details: He has a type II PR likely due to demand ischemia in setting [...] signed by MD Sury Winkler> 08/21/23 1117 [facility] Work Phone: 1(450) 303-320903-28-2024 Progress note Author Michael Ramírez [facility] August 21, 2023 9:00amNote Date/TimeMarch 2023 8:49[place] [address] Infect. Disease Progress Note Signed Patient: Chelsea Diego JR MR#: [id number] : 1950 Acct:[id number] Age/Sex: 72 / M Adm Date: 4 Loc: Room: 6L6688-0 Type: ADM IN Attending Dr: Arnaldo Thomas [...] DAILY [facility] Stop: 08/16/24 15:59 Last Admin: 08/20/23 08:19 Dose: 81 mg Clopidogrel Bisulfate (Clopidogrel Bisulfate 75 Mg Tablet) 75 mg NG-TUBE DAILY [facility] Stop: 08/16/24 15:59 Last Admin: 08/20/23 08:19 Dose: 75 mg Darbepoetin Abisai (Darbepoetin Abisai In Polysorbat 60 Mcg/Ml Vial) 60 mcg IV- PUSHQWEEK [facility]; Protocol Stop: 08/12/24 09:04 Last Admin: 08/20/23 13:47 Dose: 60 mcg Dextrose (Dextrose 50% In Water 25 Gm/50 Ml Syringe) 0 gm IV-PUSH PRN PRN PRN Reason: Hypoglycemia Stop: 07/31/24 08:04 Last Admin: 08/19/23 05:25 Dose: 25 gm Diclofenac Sodium (Diclofenac Sodium 1% Gel 100 Gm Tube) 4 gm TOPICAL QID [facility] Stop: 08/16/24 17:59 Last Admin: 08/20/23 21:14 Dose: Not Given Fentanyl Citrate (Fentanyl/Pf 100 Mcg/2 Ml Vial) 50 mcg IV-PUSH Q2H PRN PRN Reason: tracheostomy pain Last Admin: 08/20/23 17:57 Dose: 50 mcg Ferric Sodium Gluconate Complex (Sodium Ferric Gluconat/Sucrose 62.5 Mg/5 Ml Vial) 62.5 mg IV-PUSH We@0900 [facility] Stop: 08/12/24 09:04 Last Admin: 08/20/23 17:57 Dose: Not Given Gabapentin (Gabapentin 300 Mg/6 Ml Udc) 100 mg NG-TUBE QPM [facility] Stop: 08/16/24 20:59 Last Admin: 08/20/23 20:49 Dose: 100 mg Glucose (Dextrose 40% Gel 15 Gm Tube) 0 gm PO PRN PRN PRN Reason: Hypoglycemia Stop: 07/31/24 08:04 Heparin Sodium (Porcine) (Heparin 5,000 Unit/Ml Vial) 5,000 unit SUBCUT Q8HR [facility] Stop: 08/01/24 13:59 Last Admin: 08/21/23 05:34 [...] (Dextrose) 100 mls @ 4.84 mls/hr IV .[id number] [facility]; Protocol Stop: 08/04/24 10:14 Last Admin: 08/21/23 07:44 Dose: Not Given Micafungin Sodium 100 mg/ (Sodium Chloride) 105 mls @ 105 mls/hr IV Q24H [facility] Stop: 08/21/23 16:59 Last Infusion: 08/20/23 19:00 Dose: Infused Insulin Aspart (Insulin Aspart 300 Units/3 Ml Insuln.Pen) 0 units SUBCUT Q6HR [facility]; Protocol Stop: 07/31/24 11:59 Last Admin: 08/21/23 05:34 Dose: 3 units Insulin Glargine (Insulin Glargine 300 Units/3 Ml Insuln.Pen) 20 units SUBCUT BID [facility] Stop: 08/19/24 20:59 Last Admin: 08/20/23 20:50 Dose: 20 units Lansoprazole (Lansoprazole Solutab *Nf* 30 Mg Tab.Rap.Dr) 30 mg PEG DAILY [facility] Stop: 08/16/24 08:59 Last Admin: 08/20/23 08:20 [...] [facility] Stop: 08/15/24 20:59 Last Admin: 08/20/23 20:48 [...] on and off this medication 2 times duringthis hospital stay. He is continuing micafungin for now given the Rajiv glabrata from his urine but not too convincedhis sputum warrants Rx. To finish 7 days. Today is last day. As for the fungal like structure I would anticipate given the lack of CT scan findings concerning for a fungal infection would think this is a colonizer as well. Patient's white count had improved but today significant 3. Nurse mentions thathe had a significantloose bowel movement that soaked through and was pure liquid. If this continues can send stool for C. difficile. Patient continues to have high platelet count. Clinically only complains of a headache. Nurse isgoing to get him some Tylenol. Documented By: Michael Ramírez MD 08/21/23 0832 Signed By: <Electronically signed by MD Michael Ramírez> 08/21/23 09 [facility] Work Phone: 1(804) [phone] Progress note Author Mehul Garrett [facility] August 20, 2023 4:52pmNote Date/TimeMarch 2023 8:24[place] [address] Pulmonology Progress Note Signed Patient: Chelsea Diego JR MR#: [id number] : 1950 Acct:[id number] Age/Sex: 72 / M Adm Date: 4 Loc: Room: [address] [place] [address] Type: ADM IN Attending Dr: Arnaldo Thomas [...] chronic respiratory failure on Micafungin and on daytimepressure support and nighttime volume control with nocturnal mechanical ventilatory support. Patient continues with thrombocytosisand mild leukocytosis which has been stable without fever. We await potential placement at long-term acute care facility. We will try 4-hour tracheostomy collar trial x 2 today. We continue to try and promote good sleep at night to decrease metabolic encephalopathy andICU psychosis. Patient is tolerating tubefeeds. Basal insulin dosing was adjusted. I will stop the p atient's scheduled Seroquel and see if this further improves his mental status. Continue supportivecare. Case was discussed with the hospitalist service. Documented By: Mehul Garrett MD 4 0822 Signed By: <Electronically signed by MD Mehul Garrett> 08/20/[address] [place] [address] Work Phone: 1(195) 271-202403-27-2024 Progress note Author Arnaldo Thomas [facility] August 20, 2023 2:48pmNote Date/TimeMarch 2023 2:37[place] [address] Hospitalist Progress Note Signed Patient: Chelsea Diego JR MR#: [id number] : 1950 Acct:[id number] Age/Sex: 72 / M Adm Date: 4 Loc: Room: [address] [place] [address] Type: ADM IN Attending Dr: Arnaldo Thomas MD Copies to: ~ Date of Service: 08/20/2023 Subjective Subjective Narrative: Patient examined at bedside with his present in the room. Scheduled for hemodialysis today. Hehas been getting intermittent trach collar with pressuresupport [...] 05:50 Dextrose IV 08/04/24 10:14 0 mcg/kg/hr .[id number] [facility] 0 mls/hr Titration Protocol 0.2 MCG/KG/HR [...] Units/3 Ml Insuln.Pen SUBCUT 08/19/24 20:59 BID [facility] Lansoprazole 30 mg 08/17/23 09:00 08/20/23 08:20 Lansoprazole Solutab *Nf* 30 Mg Tab.Everardo. PEG 08/16/24 08:59 30 mg DAILY [facility] [...] mechanical ventilator at night. Precedex added to helpregulate sleep cycle. Getting nutrition through NG tube. Renal failure being managed bynephrology. Continues to have thrombocytosis with WBC count trending down. Check iron profile and morning labs. Continue aspirin, Plavix, amlodipine, basal insulin with sliding scale coverage and metoprolol. On subcutaneous heparin for DVT prophylaxis. Documented By: Arnaldo Thomas MD 08/20/23 1435 Signed By: <Electronically signed by Arnaldo Thomas MD> 08/20/23 1448 [facility] Work Phone: 1(162) 702-736703-27-2024 Progress note Author Sury Winkler [facility] August 20, 2023 12:22pmNote Date/TimeMarch 2023 12:22pm[place] [address] Nephrology Progress Note Signed Patient: Chelsea Diego JR MR#: [id number] : 1950 Acct:[id number] Age/Sex: 72 / M Adm Date: 4 Loc: Room: [address] [place] [address] Type: ADM IN Attending Dr: Arnaldo Thomas MD Copies to: ~ Date of Service: 08/20/2023 Subjective Subjective Narrative: Mr. Diego is a 72-year-old male with history of DM2, HTN, PAD and prostate cancer. Patient was recently started on hemodialysis during his admission in June 2023 for SONYA possibly related to ATN versus Staph aureus glomerulonephritis. Patient had left diabetic wound s/p tarsometatarsal amputa tion. Creatinine has increased up to 5 mg/dL with no evidence of recovery. Patient was discharged to [facility] facility. Patient presented to [facility] from his nursing facility with severe shortness of breath requiring intubation. Chest x-ray showed bilateral pulmonary infiltrate with possible pulmonary edema. Subsequently the patient was transferred to [facility] and he continues to be on vent. Respiratory swab showed evidence of influenza A. Patient was treatedfor healthcare associated pneumonia with vancomycin and meropenem. Troponin was found to be elevated up to 1700. Hemoglobin was only 6.5 g/dL in setting of infection. Cardiology evaluated the patientand no intervention is planned at this point atthe patient most likely has type II demand decreasedcardiac perfusion. Patientrequired prolonged hospitalization and eventually he underwent tracheostomy and is still on ventilator. Nephrology was consulted for ESRD and dialysis. Interim History: Patient up in the bed, awake, still on intermittent vent through tracheostomy that was placed on March 19 as he failed multiple attempts of extubation [...] Trach Collar 10 08/20/23 05:00 08/20/23 11:08/20/23 11:08/20/23 11:00 08/20/23 11:00 08/20/23 11:00 08/18/23 16:23 FiO2 30 08/20/23 11:00 Narrative: Constitutional: Looks ill, awake and able to answer questions even though he is on ventilator with tracheostomy HEENT: Atraumatic, normal cephalic. Significant pallor with no jaundice or cyanosis. Patient has NGtube Neck: He has tracheostomy on vent. No [...] Puff/18 Gm Inhaler) 6 puff VENT Q6HR [facility] Stop: 07/31/24 11:59 Last Admin: 08/20/23 05:16 Dose: 6 puff Amlodipine Besylate (Amlodipine 10 Mg Tablet) 10 mg OG-TUBE DAILY [facility] Stop: 08/16/24 08:59 Last Admin: 08/20/23 08:19 Dose: 10 mg Aspirin (Aspirin 81 Mg Tab.Chew) 81 mg NG-TUBE DAILY [facility] Stop: 08/16/24 15:59 Last Admin: 08/20/23 08:19 Dose: 81 mg Clopidogrel Bisulfate (Clopidogrel Bisulfate 75 Mg Tablet) 75 mg NG-TUBE DAILY [facility] Stop: 08/16/24 15:59 Last Admin: 08/20/23 08:19 Dose: 75 mg Darbepoetin Abisai (Darbepoetin Abisai In Polysorbat 60 Mcg/Ml Vial) 60 mcg IV- PUSHQWEEK [facility]; Protocol Stop: 08/12/24 09:04 Last Admin: 08/13/23 11:24 Dose: 60 mcg Dextrose (Dextrose 50% In Water 25 Gm/50 Ml Syringe) 0 gm IV-PUSH PRN PRN PRN Reason: Hypoglycemia Stop: 07/31/24 08:04 Last Admin: 08/19/23 05:25 Dose: 25 gm Diclofenac Sodium (Diclofenac Sodium 1% Gel 100 Gm Tube) 4 gm TOPICAL QID [facility] Stop: 08/16/24 17:59 Last Admin: 08/20/23 08:20 Dose: 4 gm Fentanyl Citrate (Fentanyl/Pf 100 Mcg/2 Ml Vial) 50 mcg IV-PUSH Q2H PRN PRN Reason: tracheostomy pain Last Admin: 08/18/23 15:14 Dose: 50 mcg Ferric Sodium Gluconate Complex (Sodium Ferric Gluconat/Sucrose 62.5 Mg/5 Ml Vial) 62.5 mg IV-PUSH We@0900 [facility] Stop: 08/12/24 09:04 Last Admin: 08/13/23 11:24 Dose: 62.5 mg Gabapentin (Gabapentin 300 Mg/6 Ml Udc) 100 mg NG-TUBE QPM [facility] Stop: 08/16/24 20:59 Last Admin: 08/19/23 21:33 [...] (Dextrose) 100 mls @ 4.84 mls/hr IV .[id number] [facility]; Protocol Stop: 08/04/24 10:14 Last Titration: 08/20/23 05:50 Dose: 0 mcg/kg/hr, 0 mls/hr Micafungin Sodium 100 mg/ (Sodium Chloride) 105 mls @ 105 mls/hr IV Q24H [facility] Stop: 08/21/23 16:59 Last Admin: 08/19/23 18:07 Dose: 105 mls/hr Insulin Aspart (Insulin Aspart 300 Units/3 Ml Insuln.Pen) 0 units SUBCUT Q6HR [facility]; Protocol Stop: 07/31/24 11:59 Last Admin: 08/20/23 05:17 Dose: 3 units Insulin Glargine (Insulin Glargine 300 Units/3 Ml Insuln.Pen) 20 units SUBCUT BID [facility] Stop: 08/19/24 20:59 Lansoprazole (Lansoprazole Solutab *Nf* 30 Mg Tab.Rap.) 30 mg PEG DAILY [facility] Stop: 08/16/24 08:59 Last Admin: 08/20/23 08:20 Dose: 30 mg Magnesium Hydroxide (Magnesium Hydroxide Susp 30 Ml Udc) 30 ml PO DAILY PRN PRN Reason: Constipation Stop: 08/02/24 22:13 Metoprolol Tartrate (Metoprolol Tartrate 5 Mg/5 Ml Vial) 5 mg IV-PUSH Q4H PRN PRN Reason: Blood Pressure Stop: 08/13/24 12:28 Metoprolol Tartrate (Metoprolol Tartrate 50 Mg Tablet) 50 mg NG-TUBE BID [facility] Stop: 08/15/24 20:59 Last Admin: 08/20/23 08:19 Dose: 50 mg Quetiapine Fumarate (Quetiapine Fumarate 50 Mg Tablet) 50 mg PO BID.9A.2P [facility] Stop: 08/12/24 13:59 Last Admin: 08/20/23 08:19 [...] have reviewed the report(s) and am incorporating anyfindings in the treatment plan of this patient [...] Assessment/Problem Details: He has a type II PR likely due to demand ischemia in setting [...] anti-GBM antibodies are negative. 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 He may need [...] signed by MD Sury Winkler> 08/20/23 1222 [facility] Work Phone: 1(718) 451-156303-27-2024 Progress note Author Michael Ramírez [facility] August 20, 2023 10:19amNote Date/TimeMarch 2023 10:19[place] [id number] Infect. Disease Progress Note Signed Patient: Chelsea Diego JR MR#: [id number] : 1950 Acct:[id number] Age/Sex: 72 / M Adm Date: 4 Loc: Room: 1C4496-0 Type: ADM IN Attending Dr: Arnaldo Thomas [...] Puff/18 Gm Inhaler) 6 puff VENT Q6HR [facility] Stop: 07/31/24 11:59 Last Admin: 08/20/23 05:16 Dose: 6 puff Amlodipine Besylate (Amlodipine 10 Mg Tablet) 10 mg OG-TUBE DAILY [facility] Stop: 08/16/24 08:59 Last Admin: 08/20/23 08:19 Dose: 10 mg Aspirin (Aspirin 81 Mg Tab.Chew) 81 mg NG-TUBE DAILY [facility] Stop: 08/16/24 15:59 Last Admin: 08/20/23 08:19 Dose: 81 mg Clopidogrel Bisulfate (Clopidogrel Bisulfate 75 Mg Tablet) 75 mg NG-TUBE DAILY [facility] Stop: 08/16/24 15:59 Last Admin: 08/20/23 08:19 Dose: 75 mg Darbepoetin Abisai (Darbepoetin Abisai In Polysorbat 60 Mcg/Ml Vial) 60 mcg IV- PUSHQWEEK [facility]; Protocol Stop: 08/12/24 09:04 Last Admin: 08/13/23 11:24 Dose: 60 mcg Dextrose (Dextrose 50% In Water 25 Gm/50 Ml Syringe) 0 gm IV-PUSH PRN PRN PRN Reason: Hypoglycemia Stop: 07/31/24 08:04 Last Admin: 08/19/23 05:25 Dose: 25 gm Diclofenac Sodium (Diclofenac Sodium 1% Gel 100 Gm Tube) 4 gm TOPICAL QID [facility] Stop: 08/16/24 17:59 Last Admin: 08/20/23 08:20 Dose: 4 gm Fentanyl Citrate (Fentanyl/Pf 100 Mcg/2 Ml Vial) 50 mcg IV-PUSH Q2H PRN PRN Reason: tracheostomy pain Last Admin: 08/18/23 15:14 Dose: 50 mcg Ferric Sodium Gluconate Complex (Sodium Ferric Gluconat/Sucrose 62.5 Mg/5 Ml Vial) 62.5 mg IV-PUSH We@0900 [facility] Stop: 08/12/24 09:04 Last Admin: 08/13/23 11:24 Dose: 62.5 mg Gabapentin (Gabapentin 300 Mg/6 Ml Udc) 100 mg NG-TUBE QPM [facility] Stop: 08/16/24 20:59 Last Admin: 08/19/23 21:33 Dose: 100 mg Glucose (Dextrose 40% Gel 15 Gm Tube) 0 gm PO PRN PRN PRN Reason: Hypoglycemia Stop: 07/31/24 08:04 Heparin Sodium (Porcine) (Heparin 5,000 Unit/Ml Vial) 5,000 unit SUBCUT Q8HR [facility] Stop: 08/01/24 13:59 Last Admin: 08/20/23 05:17 [...] (Dextrose) 100 mls @ 4.84 mls/hr IV .[id number] [facility]; Protocol Stop: 08/04/24 10:14 Last Titration: 08/20/23 05:50 Dose: 0 mcg/kg/hr, 0 mls/hr Micafungin Sodium 100 mg/ (Sodium Chloride) 105 mls @ 105 mls/hr IV Q24H [facility] Stop: 08/21/23 16:59 Last Admin: 08/19/23 18:07 Dose: 105 mls/hr Insulin Aspart (Insulin Aspart 300 Units/3 Ml Insuln.Pen) 0 units SUBCUT Q6HR [facility]; Protocol Stop: 07/31/24 11:59 Last Admin: 08/20/23 05:17 Dose: 3 units Insulin Glargine (Insulin Glargine 300 Units/3 Ml Insuln.Pen) 20 units SUBCUT BID [facility] Stop: 08/19/24 20:59 Lansoprazole (Lansoprazole Solutab *Nf* 30 Mg Tab.Rap.Dr) 30 mg PEG DAILY [facility] Stop: 08/16/24 08:59 Last Admin: 08/20/23 08:20 Dose: 30 mg Magnesium Hydroxide (Magnesium Hydroxide Susp 30 Ml Udc) 30 ml PO DAILY PRN PRN Reason: Constipation Stop: 08/02/24 22:13 Metoprolol Tartrate (Metoprolol Tartrate 5 Mg/5 Ml Vial) 5 mg IV-PUSH Q4H PRN PRN Reason: Blood Pressure Stop: 08/13/24 12:28 Metoprolol Tartrate (Metoprolol Tartrate 50 Mg Tablet) 50 mg NG-TUBE BID [facility] Stop: 08/15/24 20:59 Last Admin: 08/20/23 08:19 [...] on and off this medication 2 times duringthis hospital stay. He is continuing micafungin for now given the Rajiv glabrata from his urine but not too convincedhis sputum warrants Rx. To finish 7 days. Stop date in chart. As for the fungal like structure I would anticipate given the lack of CT scan findings concerning for a fungal infection would think thisis a colonizer as well. Patient's white count did improve and has been down over the last 2 days. He isat 12.5 today. Platelet count however still remains elevated. Documented By: Michael Ramírez MD 08/20/23 101 Signed By: <Electronically signed by MD Michael Ramírez> 08/20/23 [facility] Work Phone: 1(442) 949-258503-26-2024 Progress note Author Sury [facility] August 19, 2023 3:56pmNote Date/TimeMarch 2023 3:56pm[place] [address] Nephrology Progress Note Signed Patient: Chelsea Diego JR MR#: [id number] : 1950 Acct:[id number] Age/Sex: 72 / M Adm Date: 4 Loc: 4C Room: 4E1185-5 Type: ADM IN Attending Dr: Arnaldo Thomas MD Copies to: ~ Date of Service: 08/19/2023 Subjective Subjective Narrative: Mr. Diego is a 72-year-old male with history of DM2, HTN, PAD and prostate cancer. Patient was recently started on hemodialysis during his admission in June 2023 for SONYA possibly related to ATN versus Staph aureus glomerulonephritis. Patient had left diabetic wound s/p tarsometatarsal amputa tion. Creatinine has increased up to 5 mg/dL with no evidence of recovery. Patient was discharged to [facility]pc facility. Patient presented to [facility] from his nursing facility with severe shortness of breath requiring intubation. Chest x-ray showed bilateral pulmonary infiltrate with possible pulmonary edema. Subsequently the patient was transferred to [facility] and he continues to be on vent. Respiratory swab showed evidence of influenza A. Patient was treatedfor healthcare associated pneumonia with vancomycin and meropenem. Troponin was found to be elevated up to 1700. Hemoglobin was only 6.5 g/dL in setting of infection. Cardiology evaluated the patientand no intervention is planned at this point atthe patient most likely has type II demand decreasedcardiac perfusion. Patientrequired prolonged hospitalization and eventually he [...] trial of CPAP. He has adequate oxygenation. Hehas minimal edema. He continues to have mild leukocytosis currently on meropenem and micafungin forCandida glabrata that found in the urine. Patient [...] with no jaundice or cyanosis. Patient has NGtube Neck: He has tracheostomy on vent. No [...] [facility] Stop: 07/31/24 11:59 Last Admin: 08/19/23 12:12 Dose: 6 puff Amlodipine Besylate (Amlodipine 10 Mg Tablet) 10 mg OG-TUBE DAILY [facility] Stop: 08/16/24 08:59 Last Admin: 08/19/23 08:36 Dose: 10 mg Aspirin (Aspirin 81 Mg Tab.Chew) 81 mg NG-TUBE DAILY [facility] Stop: 08/16/24 15:59 Last Admin: 08/19/23 08:36 Dose: 81 mg Clopidogrel Bisulfate (Clopidogrel Bisulfate 75 Mg Tablet) 75 mg NG-TUBE DAILY [facility] Stop: 08/16/24 15:59 Last Admin: 08/19/23 08:36 Dose: 75 mg Darbepoetin Abisai (Darbepoetin Abisai In Polysorbat 60 Mcg/Ml Vial) 60 mcg IV- PUSHQWEEK [facility]; Protocol Stop: 08/12/24 09:04 Last Admin: 08/13/23 11:24 Dose: 60 mcg Dextrose (Dextrose 50% In Water 25 Gm/50 Ml Syringe) 0 gm IV-PUSH PRN PRN PRN Reason: Hypoglycemia Stop: 07/31/24 08:04 Last Admin: 08/19/23 05:25 Dose: 25 gm Diclofenac Sodium (Diclofenac Sodium 1% Gel 100 Gm Tube) 4 gm TOPICAL QID [facility] Stop: 08/16/24 17:59 Last Admin: 08/19/23 14:39 Dose: 4 gm Fentanyl Citrate (Fentanyl/Pf 100 Mcg/2 Ml Vial) 50 mcg IV-PUSH Q2H PRN PRN Reason: tracheostomy pain Last Admin: 08/18/23 15:14 Dose: 50 mcg Ferric Sodium Gluconate Complex (Sodium Ferric Gluconat/Sucrose 62.5 Mg/5 Ml Vial) 62.5 mg IV-PUSH We@0900 [facility] Stop: 08/12/24 09:04 Last Admin: 08/13/23 11:24 Dose: 62.5 mg Gabapentin (Gabapentin 300 Mg/6 Ml Udc) 100 mg NG-TUBE QPM [facility] Stop: 08/16/24 20:59 Last Admin: 08/18/23 20:28 Dose: 100 mg Glucose (Dextrose 40% Gel 15 Gm Tube) 0 gm PO PRN PRN PRN Reason: Hypoglycemia Stop: 07/31/24 08:04 Heparin Sodium (Porcine) (Heparin 5,000 Unit/Ml Vial) 5,000 unit SUBCUT Q8HR [facility] Stop: 08/01/24 13:59 Last Admin: 08/19/23 14:39 [...] (Dextrose) 100 mls @ 4.84 mls/hr IV .[id number] [facility]; Protocol Stop: 08/04/24 10:14 Last Admin: 08/19/23 14:38 Dose: Not Given Micafungin Sodium 100 mg/ (Sodium Chloride) 105 mls @ 105 mls/hr IV Q24H [facility] Stop: 08/21/23 16:59 Last Infusion: 08/18/23 19:00 Dose: Infused Insulin Aspart (Insulin Aspart 300 Units/3 Ml Insuln.Pen) 0 units SUBCUT Q6HR [facility]; Protocol Stop: 07/31/24 11:59 Last Admin: 08/19/23 12:59 Dose: Not Given Insulin Glargine (Insulin Glargine 300 Units/3 Ml Insuln.Pen) 30 units SUBCUT BID [facility] Stop: 08/16/24 20:59 Last Admin: 08/19/23 08:37 [...] [facility]I Stop: 08/12/24 13:59 Last Admin: 08/19/23 14:38 [...] Simmons Jr., D.OTracy08/18/2023 6:28 PM Dictation Location: [place] [address] Any impression(s) listed above is documentation that was entered by the reading physician into a diagnostic report(s) for Chelsea Diego JR. 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 * He is currently on micafungin and meropenem. Sputum culture showed Rajiv albicans and urine culture showed Rajiv glabrata. Pharmacy to dose medication based on ESRD status. * ANCA, and anti-GBM antibodies are negative. 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 He may need [...] signed by MD Sury Winkler> 08/19/23 1556 [facility] Work Phone: 1(675) 498-965603-26-2024 Progress note Author Mehul Garrett [facility] August 19, 2023 12:58pmNote Date/TimeMarch 2023 8:01[place] [address] Pulmonology Progress Note Signed Patient: Chelsea Diego JR MR#: [id number] : 1950 Acct:[id number] Age/Sex: 72 / M Adm Date: 4 Loc: Room: [address] [place] [address] Type: ADM IN Attending Dr: Arnaldo Thomas [...] chronic respiratory failure on Micafungin and on daytimepressure support and nighttime volume control with nocturnal [...] care as we await placement potentially at long-termacute care facility. Case was discussed with hospitalist service. Documented By: Mehul Garrett MD 4 0801 Signed By: <Electronically signed by MD Mehul Garrett> 08/19/23 0726 [facility] Work Phone: 1(430) [phone] Progress note Author Arnaldo Thomas [facility] August 19, 2023 12:57pmNote Date/TimeMarch 2023 12:57[place] [address] Hospitalist Progress Note Signed Patient: Chelsea Diego JR MR#: [id number] : 1950 Acct:[id number] Age/Sex: 72 / M Adm Date: 4 Loc: Room: [address] [place] [address] Type: ADM IN Attending Dr: Arnaldo Thomas [...] 06:10 Dextrose IV 08/04/24 10:14 0 mcg/kg/hr .[id number] [facility] 0 mls/hr Titration Protocol 0.2 MCG/KG/HR [...] 08/19/23 08:37 Lansoprazole Solutab *Nf* 30 Mg Tab.Rap. PEG [...] <Electronically signed by Arnaldo Thomas MD> 08/19/[address] [place] [address] Work Phone: 1(663) 353-329803-26-2024 Progress note Author Michael Ramírez [facility] August 19, 2023 9:23amNote Date/TimeMarch 2023 9:23[place] [address] Infect. Disease Progress Note Signed Patient: Chelsea Dieog JR MR#: [id number] : 1950 Acct:[id number] Age/Sex: 72 / M Adm Date: 4 Loc: Room: [address] [place] [address] Type: ADM IN Attending Dr: Arnaldo Thomas [...] Puff/18 Gm Inhaler) 6 puff VENT Q6HR [facility] Stop: 07/31/24 11:59 Last Admin: 08/19/23 05:03 Dose: 6 puff Amlodipine Besylate (Amlodipine 10 Mg Tablet) 10 mg OG-TUBE DAILY [facility] Stop: 08/16/24 08:59 Last Admin: 08/19/23 08:36 Dose: 10 mg Aspirin (Aspirin 81 Mg Tab.Chew) 81 mg NG-TUBE DAILY [facility] Stop: 08/16/24 15:59 Last Admin: 08/19/23 08:36 Dose: 81 mg Clopidogrel Bisulfate (Clopidogrel Bisulfate 75 Mg Tablet) 75 mg NG-TUBE DAILY [facility] Stop: 08/16/24 15:59 Last Admin: 08/19/23 08:36 Dose: 75 mg Darbepoetin Abisai (Darbepoetin Abisai In Polysorbat 60 Mcg/Ml Vial) 60 mcg IV- PUSHQWEEK [facility]; Protocol Stop: 08/12/24 09:04 Last Admin: 08/13/23 11:24 Dose: 60 mcg Dextrose (Dextrose 50% In Water 25 Gm/50 Ml Syringe) 0 gm IV-PUSH PRN PRN PRN Reason: Hypoglycemia Stop: 07/31/24 08:04 Last Admin: 08/19/23 05:25 Dose: 25 gm Diclofenac Sodium (Diclofenac Sodium 1% Gel 100 Gm Tube) 4 gm TOPICAL QID [facility] Stop: 08/16/24 17:59 Last Admin: 08/19/23 08:37 [...] [facility] Stop: 08/01/24 13:59 Last Admin: 08/19/23 05:24 [...] (Dextrose) 100 mls @ 4.84 mls/hr IV .[id number] [facility]; Protocol Stop: 08/04/24 10:14 Last Titration: 08/19/23 06:10 Dose: 0 mcg/kg/hr, 0 mls/hr Micafungin Sodium 100 mg/ (Sodium Chloride) 105 mls @ 105 mls/hr IV Q24H [facility] Stop: 08/21/23 16:59 Last Infusion: 08/18/23 19:00 Dose: Infused Insulin Aspart (Insulin Aspart 300 Units/3 Ml Insuln.Pen) 0 units SUBCUT Q6HR [facility]; Protocol Stop: 07/31/24 11:59 Last Admin: 08/19/23 05:24 Dose: Not Given Insulin Glargine (Insulin Glargine 300 Units/3 Ml Insuln.Pen) 30 units SUBCUT BID [facility] Stop: 08/16/24 20:59 Last Admin: 08/19/23 08:37 Dose: 30 units Lansoprazole (Lansoprazole Solutab *Nf* 30 Mg Tab.Rap.Dr) 30 mg PEG DAILY [facility] Stop: 08/16/24 08:59 Last Admin: 08/19/23 08:37 Dose: 30 mg Magnesium Hydroxide (Magnesium Hydroxide Susp 30 Ml Udc) 30 ml PO DAILY PRN PRN Reason: Constipation Stop: 08/02/24 22:13 Metoprolol Tartrate (Metoprolol Tartrate 5 Mg/5 Ml Vial) 5 mg IV-PUSH Q4H PRN PRN Reason: Blood Pressure Stop: 08/13/24 12:28 Metoprolol Tartrate (Metoprolol Tartrate 50 Mg Tablet) 50 mg NG-TUBE BID [facility] Stop: 08/15/24 20:59 Last Admin: 08/19/23 08:36 [...] on and off this medication 2 times duringthis hospital stay. No bacterial etiology supports tocontinued use. He is continuing micafungin for now given the Rajiv glabrata from his urine but not too convincedhis sputum warrants Rx. To finish 7 days. As for the fungal like structure I would anticipate giventhe lack of CT scan findings concerning for a fungal infection would think this is a colonizer as well. White count continues to improve. Platelet count which was significant elevatedyesterday still is elevated but is slightly less. Documented By: Michael Ramírez MD 08/19/23920 Signed By: <Electronically signed by MD Michael Ramírez> 08/19/23922 [facility] Work Phone: 1(453) 358-512703-26-2024 Progress note Author Michael Ramírez [facility] August 19, 2023 9:21amNote Date/TimeMarch 2023 8:54[place] [address] Infect. Disease Progress Note Signed Patient: Chelsea Diego JR MR#: [id number] : 1950 Acct:[id number] Age/Sex: 72 / M Adm Date: 4 Loc: Room: [address] [place] [address] Type: ADM IN Attending Dr: Arnaldo Thomas [...] DAILY [facility] Stop: 08/16/24 15:59 Last Admin: 08/17/23 17:29 Dose: 81 mg Clopidogrel Bisulfate (Clopidogrel Bisulfate 75 Mg Tablet) 75 mg NG-TUBE DAILY [facility] Stop: 08/16/24 15:59 Last Admin: 08/17/23 17:29 Dose: 75 mg Darbepoetin Abisai (Darbepoetin Abisai In Polysorbat 60 Mcg/Ml Vial) 60 mcg IV- PUSHQWEEK [facility]; Protocol Stop: 08/12/24 09:04 Last Admin: 08/13/23 11:24 Dose: 60 mcg Dextrose (Dextrose 50% In Water 25 Gm/50 Ml Syringe) 0 gm IV-PUSH PRN PRN PRN Reason: Hypoglycemia Stop: 07/31/24 08:04 Diclofenac Sodium (Diclofenac Sodium 1% Gel 100 Gm Tube) 4 gm TOPICAL QID [facility] Stop: 08/16/24 17:59 Last Admin: 08/17/23 23:40 Dose: 4 gm Fentanyl Citrate (Fentanyl/Pf 100 Mcg/2 Ml Vial) 50 mcg IV-PUSH Q2H PRN PRN Reason: tracheostomy pain Last Admin: 08/17/23 22:02 Dose: 50 mcg Ferric Sodium Gluconate Complex (Sodium Ferric Gluconat/Sucrose 62.5 Mg/5 Ml Vial) 62.5 mg IV-PUSH We@0900 [facility] Stop: 08/12/24 09:04 Last Admin: 08/13/23 11:24 Dose: 62.5 mg Gabapentin (Gabapentin Soln 250 Mg/5 Ml) 100 mg NG-TUBE QPM [facility] Stop: 08/16/24 20:59 Last Admin: 08/17/23 23:41 Dose: 100 mg Glucose (Dextrose 40% Gel 15 Gm Tube) 0 gm PO PRN PRN PRN Reason: Hypoglycemia Stop: 07/31/24 08:04 Heparin Sodium (Porcine) (Heparin 5,000 Unit/Ml Vial) 5,000 unit SUBCUT Q8HR [facility] Stop: 08/01/24 13:59 Last Admin: 08/18/23 06:29 [...] (Dextrose) 100 mls @ 4.84 mls/hr IV .[id number] [facility]; Protocol Stop: 08/04/24 10:14 Last Titration: 08/18/23 05:33 Dose: 0 mcg/kg/hr, 0 mls/hr Micafungin Sodium 100 mg/ (Sodium Chloride) 105 mls @ 105 mls/hr IV Q24H [facility] Stop: 08/21/23 16:59 Last Admin: 08/17/23 17:29 Dose: 105 mls/hr Insulin Aspart (Insulin Aspart 300 Units/3 Ml Insuln.Pen) 0 units SUBCUT Q6HR [facility]; Protocol Stop: 07/31/24 11:59 Last Admin: 08/18/23 06:29 Dose: 3 units Insulin Glargine (Insulin Glargine 300 Units/3 Ml Insuln.Pen) 30 units SUBCUT BID [facility] Stop: 08/16/24 20:59 Last Admin: 08/17/23 23:41 Dose: 30 units Lansoprazole (Lansoprazole Solutab *Nf* 30 Mg Tab.Rap) 30 mg PEG DAILY [facility] Stop: 08/16/24 08:59 Last Admin: 08/17/23 11:27 [...] [facility] Stop: 08/12/24 13:59 Last Admin: 08/17/23 14:45 [...] thrombocytosis. Documented By: Michael Ramírez MD 08/18/23 9253 Signed By: <Electronically signed by MD Michael Ramírez> 08/19/2399 [facility] Work Phone: [phone]) 841-227503-25-2024 Progress note Author Mehul Garrett [facility] August 18, 2023 5:13pmNote Date/TimeMar2023 11:28[place] [address] Pulmonology Progress Note Signed Patient: Chelsea Diego JR MR#: [id number] : 1950 Acct:[id number] Age/Sex: 72 / M Adm Date: 4 Loc: Room: [address] [place] [address] Type: ADM IN Attending Dr: Arnaldo Thomas [...] chronic respiratory failure on Micafungin and on daytimepressure support and nighttime volume control with nocturnal [...] facilitate nighttime sleep and try and prevent daytimesomnolence promoting alteration in day night cycle. Case was discussed with infectious disease withpatient noted to have thrombocytosis but without fever [...] <Electronically signed by MD Mehul Garrett> 08/18/23 9619 [facility] Work Phone: 1(790) [phone] Progress note Author Arnaldo Thomas [facility] August 18, 2023 12:32pmNote Date/TimeMarch 2023 12:26[place] [address] Hospitalist Progress Note Signed Patient: Chelsea Diego JR MR#: [id number] : 1950 Acct:[id number] Age/Sex: 72 / M Adm Date: 4 Loc: Room: [address] [place] [address] Type: ADM IN Attending Dr: Arnaldo Thomas [...] 05:33 Dextrose IV 08/04/24 10:14 0 mcg/kg/hr .[id number] [facility] 0 mls/hr Titration Protocol 0.2 MCG/KG/HR [...] 08/18/23 08:59 Lansoprazole Solutab *Nf* 30 Mg Tab.Rap.Dr PEG [...] signed by Arnaldo Thomas MD> 08/18/23 1232 [facility] Work Phone: [phone]) [phone] Progress note Author Sury Winkler [facility] August 18, 2023 11:34amNote Date/TimeMar2023 11:32[place] [address] Nephrology Progress Note Signed Patient: Chelsea Diego JR MR#: [id number] : 1950 Acct:[id number] Age/Sex: 72 / M Adm Date: 4 Loc: Room: [address] [place] [address] Type: ADM IN Attending Dr: Arnaldo Thomas MD Copies to: ~ Date of Service: 08/18/2023 Subjective Subjective Narrative: Mr. Diego is a 72-year-old male with history of DM2, HTN, PAD and prostate cancer. Patient was recently started on hemodialysis during his admission in June 2023 for SONYA possibly related to ATN versus Staph aureus glomerulonephritis. Patient had left diabetic wound s/p tarsometatarsal amputa tion. Creatinine has increased up to 5 mg/dL with no evidence of recovery. Patient was discharged to [facility] facility. Patient presented to [facility] from his nursing facility with severe shortness of breath requiring intubation. Chest x-ray showed bilateral pulmonary infiltrate with possible pulmonary edema. Subsequently the patient was transferred to [facility] and he continues to be on vent. Respiratory swab showed evidence of influenza A. Patient was treatedfor healthcare associated pneumonia with vancomycin and meropenem. Troponin was found to be elevated up to 1700. Hemoglobin was only 6.5 g/dL in setting of infection. Cardiology evaluated the patientand no intervention is planned at this point atthe patient most likely has type II demand decreasedcardiac perfusion. Patientrequired prolonged hospitalization and eventually he [...] elevated 91 mg/dL. Urine output did increase howeverstill low 200 mL over the last 24 [...] with no jaundice or cyanosis. Patient has NGtube Neck: He has tracheostomy on vent. No [...] Puff/18 Gm Inhaler) 6 puff VENT Q6HR [facility] Stop: 07/31/24 11:59 Last Admin: 08/18/23 05:23 Dose: 6 puff Amlodipine Besylate (Amlodipine 10 Mg Tablet) 10 mg OG-TUBE DAILY [facility] Stop: 08/16/24 08:59 Last Admin: 08/17/23 11:27 Dose: 10 mg Aspirin (Aspirin 81 Mg Tab.Chew) 81 mg NG-TUBE DAILY [facility] Stop: 08/16/24 15:59 Last Admin: 08/18/23 08:59 Dose: 81 mg Clopidogrel Bisulfate (Clopidogrel Bisulfate 75 Mg Tablet) 75 mg NG-TUBE DAILY [facility] Stop: 08/16/24 15:59 Last Admin: 08/18/23 08:59 Dose: 75 mg Darbepoetin Abisai (Darbepoetin Abisai In Polysorbat 60 Mcg/Ml Vial) 60 mcg IV- PUSHQWEEK [facility]; Protocol Stop: 08/12/24 09:04 Last Admin: 08/13/23 11:24 Dose: 60 mcg Dextrose (Dextrose 50% In Water 25 Gm/50 Ml Syringe) 0 gm IV-PUSH PRN PRN PRN Reason: Hypoglycemia Stop: 07/31/24 08:04 Diclofenac Sodium (Diclofenac Sodium 1% Gel 100 Gm Tube) 4 gm TOPICAL QID [facility] Stop: 08/16/24 17:59 Last Admin: 08/18/23 09:00 Dose: 4 gm Fentanyl Citrate (Fentanyl/Pf 100 Mcg/2 Ml Vial) 50 mcg IV-PUSH Q2H PRN PRN Reason: tracheostomy pain Last Admin: 08/17/23 22:02 Dose: 50 mcg Ferric Sodium Gluconate Complex (Sodium Ferric Gluconat/Sucrose 62.5 Mg/5 Ml Vial) 62.5 mg IV-PUSH We@0900 [facility] Stop: 08/12/24 09:04 Last Admin: 08/13/23 11:24 [...] (Dextrose) 100 mls @ 4.84 mls/hr IV .[id number] [facility]; Protocol Stop: 08/04/24 10:14 Last Titration: 08/18/23 05:33 Dose: 0 mcg/kg/hr, 0 mls/hr Micafungin Sodium 100 mg/ (Sodium Chloride) 105 mls @ 105 mls/hr IV Q24H [facility] Stop: 08/21/23 16:59 Last Admin: 08/17/23 17:29 Dose: 105 mls/hr Insulin Aspart (Insulin Aspart 300 Units/3 Ml Insuln.Pen) 0 units SUBCUT Q6HR [facility]; Protocol Stop: 07/31/24 11:59 Last Admin: 08/18/23 06:29 Dose: 3 units Insulin Glargine (Insulin Glargine 300 Units/3 Ml Insuln.Pen) 30 units SUBCUT BID [facility] Stop: 08/16/24 20:59 Last Admin: 08/18/23 09:00 Dose: 30 units Lansoprazole (Lansoprazole Solutab *Nf* 30 Mg Tab.Rap.Dr) 30 mg PEG DAILY [facility] Stop: 08/16/24 08:59 Last Admin: 08/18/23 08:59 Dose: 30 mg Magnesium Hydroxide (Magnesium Hydroxide Susp 30 Ml Udc) 30 ml PO DAILY PRN PRN Reason: Constipation Stop: 08/02/24 22:13 Metoprolol Tartrate (Metoprolol Tartrate 5 Mg/5 Ml Vial) 5 mg IV-PUSH Q4H PRN PRN Reason: Blood Pressure Stop: 08/13/24 12:28 Metoprolol Tartrate (Metoprolol Tartrate 50 Mg Tablet) 50 mg NG-TUBE BID [facility] Stop: 08/15/24 20:59 Last Admin: 08/17/23 23:41 Dose: 50 mg Quetiapine Fumarate (Quetiapine Fumarate 50 Mg Tablet) 50 mg PO BID.9A.2P [facility] Stop: 08/12/24 13:59 Last Admin: 08/18/23 08:59 [...] Dhruv Conroy M.D.08/17/2023 1:13 PM Dictation Location: [place] [address] Abdomen X-Ray 08/17/23 20:44 IMPRESSION: Adequate position of NG tube Impression dictated by: Dhruv Conroy M.D.08/18/2023 8:54 AM Dictation Location: [place] [address] Any impression(s) listed above is documentation that was entered by the reading physician into a diagnostic report(s) for Chelsea Diego JR. I have reviewed the report(s) and am incorporating anyfindings in the treatment plan of this patient [...] Assessment/Problem Details: He has a type II PR likely due to demand ischemia in setting [...] anti-GBM antibodies are negative. 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 Not sure about the clinical significant [...] signed by MD Sury Winkler> 08/18/23 1134 [facility] Work Phone: 1(940) 566-740503-24-2024 Progress note Author Geo Thomas [facility] August 17, 2023 4:21pmNote Date/TimeMarch 2023 4:[place] [id number] Hospitalist Progress Note Signed Patient: Chelsea Diego JR MR#: [id number] : 1950 Acct:[id number] Age/Sex: 72 / M Adm Date: 4 Loc: Room: 5F7221-8 Type: ADM IN Attending Dr: Geo Thomas DO Copies to: ~ Date of Service: 08/17/2023 Subjective Subjective Narrative: Today the patient had some agitation and his blood pressure spiked upwards and he briefly had to have Precedex for sedation. When I come around in the afternoon he is awake. He is seated upright in bed. He is looking around.He is able to mouth some words. He looks even better than he did yesterday. His bedside nurse reports that the patient was able to dislodge the nasogastric tube today but it was replaced successfully. When I talked to the patient he is able to answer some questions with yes and nogestures and makingleft movements. He seems to deny all pain [...] 75 Mg Tablet NG-TUBE 08/16/24 15:59 DAILY [facility] Darbepoetin Abisai 60 mcg 08/13/23 [...] 21:53 Dextrose IV 08/04/24 10:14 0.6 mcg/kg/hr .[id number] [facility] 14.52 mls/hr Administration Protocol 0.2 MCG/KG/HR [...] 07:43 Dextrose IV 08/04/24 10:14 1.5 mcg/kg/hr .[id number] [facility] 36.3 mls/hr Administration Protocol 0.2 MCG/KG/HR [...] 1617 Signed By: <Electronically signed by Geo Thomas DO> 08/17/23 1621 [facility] Work Phone: 1(862) 126-126203-24-2024 Progress note Author Rancho Kay [facility] August 17, 2023 1:27pmNote Date/TimeMarch 2023 1:12pm[place] [id number] Nephrology Progress Note Signed Patient: Chelsea Diego JR MR#: [id number] : 1950 Acct:[id number] Age/Sex: 72 / M Adm Date: 4 Loc: 4C Room: 1N3856-5 Type: ADM IN Attending Dr: Geo Thomas DO Copies to: ~ Date of Service: 08/17/2023 Subjective Subjective Narrative: Mr. Diego is a 72-year-old male with history of DM2, HTN, PAD and prostate cancer. Patient was recently started on hemodialysis during his admission in June 2023 for SONYA possibly related to ATN versus Staph aureus glomerulonephritis. Patient had left diabetic wound s/p tarsometatarsal amputa tion on 10/08. Creatinine has increased up to 5 mg/dL with no evidence of recovery. Patient was discharged to [facility] facility. Patient presented to [facility] from his nursing facility with severe shortness of breath requiring intubation. Chest x-ray showed bilateral pulmonary infiltrate with possible pulmonary edema. Subsequently the patient was transferred to [facility] and he continues to be on [...] tracheostomydone on August 12, 2023 and still requiringvent support. 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 Musculoskeletal: No large joint [...] Puff/18 Gm Inhaler) 6 puff VENT Q6HR [facility] Stop: 07/31/24 11:59 Last Admin: 08/17/23 11:46 Dose: 6 puff Amlodipine Besylate (Amlodipine 10 Mg Tablet) 10 mg OG-TUBE DAILY [facility] Stop: 08/16/24 08:59 Last Admin: 08/17/23 11:27 Dose: 10 mg Darbepoetin Abisai (Darbepoetin Abisai In Polysorbat 60 Mcg/Ml Vial) 60 mcg IV- PUSHQWEEK [facility]; Protocol Stop: 08/12/24 09:04 Last Admin: 08/13/23 [...] (Dextrose) 100 mls @ 4.84 mls/hr IV .[id number] [facility]; Protocol Stop: 08/04/24 10:14 Last Admin: 08/16/23 21:53 Dose: 0.6 mcg/kg/hr, 14.52 mls/hr Micafungin Sodium 100 mg/ (Sodium Chloride) 105 mls @ 105 mls/hr IV Q24H [facility] Stop: 08/21/23 13:59 Last Admin: 08/16/23 14:29 Dose: 105 mls/hr Insulin Aspart (Insulin Aspart 300 Units/3 Ml Insuln.Pen) 0 units SUBCUT Q6HR [facility]; Protocol Stop: 07/31/24 11:59 Last Admin: 08/17/23 05:32 Dose: 3 units Insulin Glargine (Insulin Glargine 300 Units/3 Ml Insuln.Pen) 25 units SUBCUT BID [facility] Stop: 08/15/24 20:59 Last Admin: 08/17/23 11:27 Dose: 25 units Lansoprazole (Lansoprazole Solutab *Nf* 30 Mg Tab.Rap.Dr) 30 mg PEG DAILY [facility] Stop: 08/16/24 08:59 Last Admin: 08/17/23 11:27 Dose: 30 mg Magnesium Hydroxide (Magnesium Hydroxide Susp 30 Ml Udc) 30 ml PO DAILY PRN PRN Reason: Constipation Stop: 08/02/24 22:13 Metoprolol Tartrate (Metoprolol Tartrate 5 Mg/5 Ml Vial) 5 mg IV-PUSH Q4H PRN PRN Reason: Blood Pressure Stop: 08/13/24 12:28 Metoprolol Tartrate (Metoprolol Tartrate 50 Mg Tablet) 50 mg NG-TUBE BID [facility] Stop: 08/15/24 20:59 Last Admin: 08/17/23 11:27 Dose: 50 mg Quetiapine Fumarate (Quetiapine Fumarate 50 Mg Tablet) 50 mg PO BID.9A.2P [facility] Stop: 08/12/24 13:59 Last Admin: 08/17/23 11:27 [...] have reviewed the report(s) and am incorporating anyfindings in the treatment plan of this patient [...] Assessment/Problem Details: He has a type II PR likely due to demand ischemia in setting [...] anti-GBM antibodies are negative. 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 Not sure about the clinical significant [...] signed by Rancho Kay MD> 08/17/23 1327 [facility] Work Phone: 1(202) 929-935103-24-2024 Consult note Author Michael Ramírez [facility] August 17, 2023 11:04amNote Date/TimeMarch 2023 10:24[place] [address] Infect. Disease Consult Note Signed Patient: Chelsea Diego JR MR#: [id number] : 1950 Acct:[id number] Age/Sex: 72 / M Adm Date: 4 Loc: Room: [address] [place] [address] Type: ADM IN Attending Dr: Geo Thomas [...] now status posttracheostomy on the . Patient recentlyhad osteomyelitis status post transmetatarsal amputation grew Staph aureus. He has peripheral arterial disease. He has been on broad-spectrum [facility] meropenem from July 31 through and then it was restarted on the and he remains on it at this day. Did receive vancomycin intermittently as well. Micafungin was added on the . It appears his whitecount significantly jumped the day of the tracheostomy however early am his WBC was40 the day of this procedure. and is slowly trending down since. In speaking with the nurse there really has not been any acute clinical changes over the last 48 hours. Patient has remained afebrile with 1 isolated fever at 100.6 noted on the night of the . CC: Geo Thomas DO [facility] Medical History (Updated 08/12/23 @ 15:45 by [...] Hypertension Mother Diabetes [facility]: Diagnosed with Stroke Stroke Brother Cancer [...] Puff/18 Gm Inhaler) 6 puff VENT Q6HR [facility] Stop: 07/31/24 11:59 Last Admin: 08/17/23 05:42 Dose: 6 puff Amlodipine Besylate (Amlodipine 10 Mg Tablet) 10 mg OG-TUBE DAILY [facility] Stop: 08/16/24 08:59 Darbepoetin Abisai (Darbepoetin Abisai In Polysorbat 60 Mcg/Ml Vial) 60 mcg IV- PUSHQWEEK [facility]; Protocol Stop: 08/12/24 09:04 Last Admin: 08/13/23 [...] Mg/5 Ml Vial) 62.5 mg IV-PUSH We@0900 [facility] Stop: 08/12/24 09:04 Last Admin: 08/13/23 11:24 Dose: 62.5 mg Glucose (Dextrose 40% Gel 15 Gm Tube) 0 gm PO PRN PRN PRN Reason: Hypoglycemia Stop: 07/31/24 08:04 Heparin Sodium (Porcine) (Heparin 5,000 Unit/Ml Vial) 5,000 unit SUBCUT Q8HR [facility] Stop: 08/01/24 13:59 Last Admin: 08/17/23 05:32 [...] (Dextrose) 100 mls @ 4.84 mls/hr IV .[id number] [facility]; Protocol Stop: 08/04/24 10:14 Last Admin: 08/16/23 21:53 Dose: 0.6 mcg/kg/hr, 14.52 mls/hr Meropenem (Merrem) 0.5 gm in 100 mls @ 33.333 mls/hr IV Q24H [facility] Last Admin: 08/16/23 16:45 Dose: 33.33 mls/hr Micafungin Sodium 100 mg/ (Sodium Chloride) 105 mls @ 105 mls/hr IV Q24H [facility] Stop: 08/21/23 13:59 Last Admin: 08/16/23 14:29 Dose: 105 mls/hr Insulin Aspart (Insulin Aspart 300 Units/3 Ml Insuln.Pen) 0 units SUBCUT Q6HR [facility]; Protocol Stop: 07/31/24 11:59 Last Admin: 08/17/23 05:32 Dose: 3 units Insulin Glargine (Insulin Glargine 300 Units/3 Ml Insuln.Pen) 25 units SUBCUT BID [facility] Stop: 08/15/24 20:59 Last Admin: 08/16/23 21:55 Dose: 25 units Lansoprazole (Lansoprazole Solutab *Nf* 30 Mg Tab.Rap.Dr) 30 mg PEG DAILY [facility] Stop: 08/16/24 08:59 Magnesium Hydroxide (Magnesium Hydroxide Susp 30 Ml Udc) 30 ml PO DAILY PRN PRN Reason: Constipation Stop: 08/02/24 22:13 Metoprolol Tartrate (Metoprolol Tartrate 5 Mg/5 Ml Vial) 5 mg IV-PUSH Q4H PRN PRN Reason: Blood Pressure Stop: 08/13/24 12:28 Metoprolol Tartrate (Metoprolol Tartrate 50 Mg Tablet) 50 mg NG-TUBE BID [facility] Stop: 08/15/24 20:59 Last Admin: 08/16/23 21:54 Dose: 50 mg Quetiapine Fumarate (Quetiapine Fumarate 50 Mg Tablet) 50 mg PO BID.9A.2P [facility] Stop: 08/12/24 13:59 Last Admin: 08/16/23 14:29 [...] TO UNDERDISTENTION THOUGH CORRELATION IS SUGGESTED TO EXCLUDEANY POSSIBILITY OF CYSTITIS. A&P - Infectious Disease [...] by the micafungin but could be Aspergillus w hich could be a colonizer. CT scan of the chest reviewed. CXR reviewed. I do not see any reason to continue him on the meropenem given the fact that he got this for 4 to 5days when he initially here as well and [...] <Electronically signed by MD Michael Ramírez> 08/17/23 1104 [facility] Work Phone: 1(147) 105-678603-24-2024 Progress note Author [facility] August 17, 2023 10:48amNote Date/TimeMarch 2023 10:46[place] [address] Pulmonology Progress Note Signed Patient: Chelsea Diego JR MR#: [id number] : 1950 Acct:[id number] Age/Sex: 72 / M Adm Date: 4 Loc: Room: [address] [place] [address] Type: ADM IN Attending Dr: Geo Thomas DO Copies to: ~ Date of Service: 08/17/2023 Subjective Subjective Narrative: He was agitated this morning, started on Precedex drip. He is now back to his baseline. Switched topressure support ventilation. Tracheostomy tube in place. No [...] at day time back to AC/VC at [facility] Started on Micafungin 08/14 ID following Will defer antibiotic management to ID Waiting LTAC approval Continue supportive care. Documented By: Morales Mckeon MD 1044 Signed By: <Electronically signed by Morales Mckeon MD> 08/17/23 1048 [facility] Work Phone: 1(883) 132-937003-23-2024 Progress note Author Geo Thomas [facility] August 16, 2023 8:48pmNote Date/TimeMarch 2023 8:48[place] [address] Hospitalist Progress Note Signed Patient: Chelsea Diego JR MR#: [id number] : 1950 Acct:[id number] Age/Sex: 72 / M Adm Date: 4 Loc: Room: [address] [place] [address] Type: ADM IN Attending Dr: Geo Thomas [...] 17:55 Dextrose IV 08/04/24 10:14 Not Given .[id number] [facility] Protocol 0.2 MCG/KG/HR Meropenem 0.5 gm [...] 07:43 Dextrose IV 08/04/24 10:14 1.5 mcg/kg/hr .[id number] [facility] 36.3 mls/hr Administration Protocol 0.2 MCG/KG/HR [...] <Electronically signed by Geo Thomas DO> 08/16/232047 [facility] Work Phone: 1(825) 682-284703-23-2024 Progress note Author Rancho Kay [facility] August 16, 2023 11:11amNote Date/TimeMarch 2023 11:07[place] [address] Nephrology Progress Note Signed Patient: Chelsea Diego JR MR#: [id number] : 1950 Acct:[id number] Age/Sex: 72 / M Adm Date: 4 Loc: Room: [address] [place] [address] Type: ADM IN Attending Dr: Geo Thomas DO Copies to: ~ Date of Service: 08/16/2023 Subjective Subjective Narrative: Mr. Diego is a 72-year-old male with history of DM2, HTN, PAD and prostate cancer. Patient was recently started on hemodialysis during his admission in June 2023 for SONYA possibly related to ATN versus Staph aureus glomerulonephritis. Patient had left diabetic wound s/p tarsometatarsal amputa tion on 10/08. Creatinine has increased up to 5 mg/dL with no evidence of recovery. Patient was [facility] to [facility]. Patient presented to [facility] from his nursing facility with severe shortness of breath requiring intubation. Chest x-ray showed bilateral pulmonary infiltrate with possible pulmonary edema. Subsequently the patient was transferred to [facility] and he continues to be on [...] to communicate by nodding his head. He iscurrently on tube feeding. He had a hemodialysis [...] Skin: No rashes , warm to touch SAFETY INVESTIGATOR: Somnolent but arousable. Musculoskeletal: No large joint [...] Q6HR [facility] Stop: 07/31/24 11:59 Last Admin: 08/16/23 05:44 Dose: 6 puff Amlodipine Besylate (Amlodipine 5 Mg Tablet) 5 mg OG-TUBE DAILY [facility] Stop: 08/09/24 08:59 Last Admin: 08/16/23 10:29 Dose: 5 mg Darbepoetin Abisai (Darbepoetin Abisai In Polysorbat 60 Mcg/Ml Vial) 60 mcg IV- PUSHQWEEK [facility]; Protocol Stop: 08/12/24 09:04 Last Admin: 08/13/23 [...] Mg/5 Ml Vial) 62.5 mg IV-PUSH We@0900 [facility] Stop: 08/12/24 09:04 Last Admin: 08/13/23 11:24 [...] (Dextrose) 100 mls @ 4.84 mls/hr IV .[id number] [facility]; Protocol Stop: 08/04/24 10:14 Last Admin: 08/15/23 17:55 Dose: Not Given Meropenem (Merrem) 0.5 gm in 100 mls @ 33.333 mls/hr IV Q24H [facility] Last Admin: 08/15/23 16:40 Dose: 33.33 mls/hr Micafungin Sodium 100 mg/ (Sodium Chloride) 105 mls @ 105 mls/hr IV Q24H [facility] Stop: 08/21/23 13:59 Last Infusion: 08/15/23 15:40 Dose: Infused Insulin Aspart (Insulin Aspart 300 Units/3 Ml Insuln.Pen) 0 units SUBCUT Q6HR [facility]; Protocol Stop: 07/31/24 11:59 Last Admin: 08/16/23 06:19 Dose: 4 units Insulin Glargine (Insulin Glargine 300 Units/3 Ml Insuln.Pen) 20 units SUBCUT BID [facility] Stop: 08/14/24 20:59 Last Admin: 08/16/23 10:29 Dose: 20 units Magnesium Hydroxide (Magnesium Hydroxide Susp 30 Ml Udc) 30 ml PO DAILY PRN PRN Reason: Constipation Stop: 08/02/24 22:13 Metoprolol Tartrate (Metoprolol Tartrate 5 Mg/5 Ml Vial) 5 mg IV-PUSH Q4H PRN PRN Reason: Blood Pressure Stop: 08/13/24 12:28 Metoprolol Tartrate (Metoprolol Tartrate 25 Mg Tablet) 25 mg NG-TUBE Q8H [facility] Stop: 08/14/24 14:59 Last Admin: 08/16/23 06:19 Dose: 25 mg Midazolam HCl (Midazolam/Pf 2 Mg/2 Ml Vial) 4 mg IV-PUSH ONCE PRN PRN Reason: sedation Last Admin: 08/08/23 13:00 Dose: 4 mg Pantoprazole Sodium (Pantoprazole 40 Mg Vial) 40 mg IV-PUSH DAILY [facility] Stop: 07/31/24 08:59 Last Admin: 08/16/23 10:29 Dose: 40 mg Quetiapine Fumarate (Quetiapine Fumarate 50 Mg Tablet) 50 mg PO BID.9A.2P [facility] Stop: 08/12/24 13:59 Last Admin: 08/16/23 10:29 [...] have reviewed the report(s) and am incorporating anyfindings in the treatment plan of this patient [...] Assessment/Problem Details: He has a type II PR likely due to demand ischemia in setting [...] anti-GBM antibodies are negative. 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 Not sure about the clinical significant [...] output. * Documented By: Rancho Kay MD 08/16/231103 Signed By: <Electronically signed by Rancho Kay MD> 08/16/[address] [place] [address] Work Phone: 1([phone]) 793-733103-23-2024 Progress note Author [facility] August 16, 2023 10:00amNote Date/TimeMarch 2023 9:50[place] [address] Pulmonology Progress Note Signed Patient: Chelsea Diego JR MR#: [id number] : 1950 Acct:[id number] Age/Sex: 72 / M Adm Date: 4 Loc: Room: [address] [place] [address] Type: ADM IN Attending Dr: Geo Thomas [...] / 1945 376 / 376 Output Total 25 / 2656 Balance 395 / -711 366 / 366 [...] at day time back to AC/VC at [facility] On Meropenem Started on Micafungin 08/14 ID consult Continue supportive care. Documented By: Morales Mckeon MD 0948 Signed By: <Electronically signed by Morales Mckeon MD> 08/16/23 1000 [facility] Work Phone: 1(188) 528-446203-22-2024 Progress note Author Pravin Rivers [facility] August 15, 2023 3:47pmNote Date/TimeMar2023 3:36[place] [address] Neurology Progress Note Signed Patient: Chelsea Diego JR MR#: [id number] : 1950 Acct:[id number] Age/Sex: 72 / M Adm Date: 4 Loc: Room: [address] [place] [address] Type: ADM IN Attending Dr: Geo Thomas [...] still with azotemia and persistent but gradually improvingleukocytosis. Head CT was without any evidence of acute or concerning findings. Routine EEG looked normal. MRI is without any explanatory findings. PLAN: No other recommendations at this time Plan: Plan Documented By: Pravin Rivers DO 08/15/23 1534 Signed By: <Electronically signed by Pravin Rivers DO> 08/15/23 1547 [facility] Work Phone: [phone]) 720-731103-22-2024 Progress note Author Rancho Kay [facility] August 15, 2023 12:32pmNote Date/TimeMarch 2023 11:40[place] [address] Nephrology Progress Note Signed Patient: Chelsea Diego JR MR#: [id number] : 1950 Acct:[id number] Age/Sex: 72 / M Adm Date: 4 Loc: Room: [address] [place] [address] Type: ADM IN Attending Dr: Geo Thomas DO Copies to: ~ Date of Service: 08/15/2023 Subjective Subjective Narrative: Mr. Diego is a 72-year-old male with history of DM2, HTN, PAD and prostate cancer. Patient was recently started on hemodialysis during his admission in June 2023 for SONYA possibly related to ATN versus Staph aureus glomerulonephritis. Patient had left diabetic wound s/p tarsometatarsal amputa tion on 10/08. Creatinine has increased up to 5 mg/dL with no evidence of recovery. Patient [facility] to [facility]. Patient presented to [facility] from his nursing facility with severe shortness of breath requiring intubation. Chest x-ray showed bilateral pulmonary infiltrate with possible pulmonary edema. Subsequently the patient was transferred to [facility] and he continues to be on [...] Skin: No rashes , warm to touch SAFETY INVESTIGATOR: Somnolent but arousable. Musculoskeletal: No large joint [...] Q6HR [facility] Stop: 07/31/24 11:59 Last Admin: 08/15/23 05:13 Dose: 6 puff Amlodipine Besylate (Amlodipine 5 Mg Tablet) 5 mg OG-TUBE DAILY [facility] Stop: 08/09/24 08:59 Last Admin: 08/15/23 09:25 Dose: 5 mg Darbepoetin Abisai (Darbepoetin Abisai In Polysorbat 60 Mcg/Ml Vial) 60 mcg IV- PUSHQWEEK [facility]; Protocol Stop: 08/12/24 09:04 Last Admin: 08/13/23 [...] Mg/5 Ml Vial) 62.5 mg IV-PUSH We@0900 [facility] Stop: 08/12/24 09:04 Last Admin: 08/13/23 11:24 Dose: 62.5 mg Glucose (Dextrose 40% Gel 15 Gm Tube) 0 gm PO PRN PRN PRN Reason: Hypoglycemia Stop: 07/31/24 08:04 Heparin Sodium (Porcine) (Heparin 5,000 Unit/Ml Vial) 5,000 unit SUBCUT Q8HR [facility] Stop: 08/01/24 13:59 Last Admin: 08/15/23 06:34 [...] (Dextrose) 100 mls @ 4.84 mls/hr IV .[id number] [facility]; Protocol Stop: 08/04/24 10:14 Last Admin: 08/14/23 20:56 Dose: Not Given Meropenem (Merrem) 0.5 gm in 100 mls @ 33.333 mls/hr IV Q24H [facility] Last Admin: 08/14/23 17:13 Dose: 33.33 mls/hr Insulin Aspart (Insulin Aspart 300 Units/3 Ml Insuln.Pen) 0 units SUBCUT Q6HR [facility]; Protocol Stop: 07/31/24 11:59 Last Admin: 08/15/23 06:33 Dose: 3 units Insulin Glargine (Insulin Glargine 300 Units/3 Ml Insuln.Pen) 20 units SUBCUT BID [facility] Stop: 08/14/24 20:59 Magnesium Hydroxide (Magnesium Hydroxide [...] have reviewed the report(s) and am incorporating anyfindings in the treatment plan of this patient [...] Assessment/Problem Details: He has a type II PR likely due to demand ischemia in setting [...] anti-GBM antibodies are negative. 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 Not sure about the clinical significant [...] questions Documented By: Rancho Kay MD 08/15/23 8251 Signed By: <Electronically signed by Rancho Kay MD> 08/15/23 1237 [facility] Work Phone: 1(528) 414-925503-22-2024 Progress note Author Morales Mckeon [facility] August 15, 2023 11:57amNote Date/TimeMarch 2023 10:43[place]IR[place] [address] Pulmonology Progress Note Signed with Addenda Patient: Chelsea Diego JR MR#: [id number] : 1950 Acct:[id number] Age/Sex: 72 / M Adm Date: 4 Loc: Room: [address] [place] [address] Type: ADM IN Attending Dr: Geo Thomas DO Copies to: ~ ADDENDUM1 Tolerating CPAP trial this morning. He will continue on CPAP as tolerated and back to AC/VC in caseof respiratory distress Addendum Documented By: Morales Mckeon MD 08/15/23 1157 Addendum Signed By: <Electronically signed by Morales [...] at day time back to AC/VC at [facility] Discontinue Vancomycin Continue empiric antibiotics Continue supportive care. Documented By: Morales Mckeon MD 1041 Signed By: <Electronically signed by Morales Mckeon MD> 08/15/23 1153 [facility] Work Phone: 1(255) 430-757103-22-2024 Progress note Author Geo Thomas [facility] August 15, 2023 10:15amNote Date/TimeMarch 2023 9:42[place] [address] Hospitalist Progress Note Signed Patient: Chelsea Diego JR MR#: [id number] : 1950 Acct:[id number] Age/Sex: 72 / M Adm Date: 4 Loc: Room: [address] [place] [address] Type: ADM IN Attending Dr: Geo Thomas [...] 20:56 Dextrose IV 08/04/24 10:14 Not Given .[id number] [facility] Protocol 0.2 MCG/KG/HR Meropenem 0.5 gm [...] 07:43 Dextrose IV 08/04/24 10:14 1.5 mcg/kg/hr .[id number] [facility] 36.3 mls/hr Administration Protocol 0.2 MCG/KG/HR [...] <Electronically signed by Geo Thomas DO> 08/15/23 [facility] Work Phone: 1(973) 541-132803-21-2024 Progress note Author Rancho Kay [facility] August 14, 2023 1:03pmNote Date/TimeMarch 2023 1:03pm[place] [address] Nephrology Progress Note Signed Patient: Chelsea Diego JR MR#: [id number] : 1950 Acct:[id number] Age/Sex: 72 / M Adm Date: 4 Loc: Room: [address] [place] [address] Type: ADM IN Attending Dr: Goe Thomas DO Copies to: ~ Date of Service: 08/14/2023 Subjective Subjective Narrative: Mr. Diego is a 72-year-old male with history of DM2, HTN, PAD and prostate cancer. Patient was recently started on hemodialysis during his admission in June 2023 for SONYA possibly related to ATN versus Staph aureus glomerulonephritis. Patient had left diabetic wound s/p tarsometatarsal amputa tion on 10/08. Creatinine has increased up to 5 mg/dL with no evidence of recovery. Patient was [facility] to [facility]. Patient presented to [facility] from his nursing facility with severe shortness of breath requiring intubation. Chest x-ray showed bilateral pulmonary infiltrate with possible pulmonary edema. Subsequently the patient was transferred to [facility] and he continues to be on [...] IV potassium chloride this manage by the meat press operator. He had multiple bowel movements overnight. He [...] Skin: No rashes , warm to touch SAFETY INVESTIGATOR: Somnolent but arousable. Musculoskeletal: No large joint [...] 5 Mg Tablet) 5 mg OG-TUBE DAILY [facility] Stop: 08/09/24 08:59 Last Admin: 08/14/23 08:42 Dose: 5 mg Darbepoetin Abisai (Darbepoetin Abisai In Polysorbat 60 Mcg/Ml Vial) 60 mcg IV- PUSHQWEEK [facility]; Protocol Stop: 08/12/24 09:04 Last Admin: 08/13/23 [...] Mg/5 Ml Vial) 62.5 mg IV-PUSH We@0900 [facility] Stop: 08/12/24 09:04 Last Admin: 08/13/23 11:24 [...] (Dextrose) 100 mls @ 4.84 mls/hr IV .[id number] [facility]; Protocol Stop: 08/04/24 10:14 Last Titration: 08/14/23 08:57 Dose: 0 mcg/kg/hr, 0 mls/hr Meropenem (Merrem) 0.5 gm in 100 mls @ 33.333 mls/hr IV Q24H [facility] Last Admin: 08/13/23 17:18 Dose: 33.33 mls/hr Potassium Chloride 40 meq/ (Sodium Chloride) 520 mls @ 130 mls/hr IV ONCE ONE Stop: 08/14/23 13:59 Last Admin: 08/14/23 10:57 Dose: 130 mls/hr Insulin Aspart (Insulin Aspart 300 Units/3 Ml Insuln.Pen) 0 units SUBCUT Q6HR [facility]; Protocol Stop: 07/31/24 11:59 Last Admin: 08/14/23 12:03 Dose: 4 units Insulin Glargine (Insulin Glargine 300 Units/3 Ml Insuln.Pen) 10 units SUBCUT BID [facility] Stop: 08/12/24 20:59 Last Admin: 08/14/23 08:43 Dose: 10 units Magnesium Hydroxide (Magnesium Hydroxide Susp 30 Ml Udc) 30 ml PO DAILY PRN PRN Reason: Constipation Stop: 08/02/24 22:13 Metoprolol Tartrate (Metoprolol Tartrate 5 Mg/5 Ml Vial) 5 mg IV-PUSH Q4H PRN PRN Reason: Blood Pressure Stop: 08/13/24 12:28 Metoprolol Tartrate (Metoprolol Tartrate 25 Mg Tablet) 25 mg NG-TUBE BID [facility] Stop: 08/13/24 20:59 Midazolam HCl (Midazolam/Pf 2 Mg/2 Ml Vial) 4 mg IV-PUSH ONCE PRN PRN Reason: sedation Last Admin: 08/08/23 13:00 Dose: 4 mg Pantoprazole Sodium (Pantoprazole 40 Mg Vial) 40 mg IV-PUSH DAILY [facility] Stop: 07/31/24 08:59 Last Admin: 08/14/23 08:42 Dose: 40 mg Quetiapine Fumarate (Quetiapine Fumarate 50 Mg Tablet) 50 mg PO BID.9A.2P [facility] Stop: 08/12/24 13:59 Last Admin: 08/14/23 08:42 [...] Nathan Lemus M.D.08/14/2023 11:20 AM Dictation Location: [place] [address] Any impression(s) listed above is documentation that was entered by the reading physician into a diagnostic report(s) for Chelsea Diego JR. I have reviewed the report(s) and am incorporating anyfindings in the treatment plan of this patient [...] Assessment/Problem Details: He has a type II PR likely due to demand ischemia in setting [...] anti-GBM antibodies are negative. 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 Not sure about the clinical significant [...] signed by Rancho Kay MD> 08/14/23 1303 [facility] Work Phone: 1(620) 118-300803-21-2024 Progress note Author Morales Mckeon [facility] August 14, 2023 12:02pmNote Date/TimeMarch 2023 8:56[place] [address] Pulmonology Progress Note Signed Patient: Chelsea Diego JR MR#: [id number] : 1950 Acct:[id number] Age/Sex: 72 / M Adm Date: 4 Loc: Room: [address] [place] [address] Type: ADM IN Attending Dr: Geo Thomas DO Copies to: ~ Date of Service: 08/14/2023 Subjective Subjective Narrative: Patient is awake and following commands, switched to pressure support ventilation this morning. He is currently on 02/27. Tracheostomy tube in place. No significant amount of purulent secretions coming out from tracheotomy. No vasopressors. Low-grade fever. WBC trending downward. Sputum culture growing [...] 380 / 380 Output Total 30 / 2739 45 / 45 Balance 380 / -1637 [...] signed by Morales Mckeon MD> 08/14/23 1202 [facility] Work Phone: 1(195) 138-958203-21-2024 Progress note Author Geo Thomas [facility] August 14, 2023 9:36amNote Date/TimeMar2023 9:06[place] [address] Hospitalist Progress Note Signed Patient: Chelsea Diego JR MR#: [id number] : 1950 Acct:[id number] Age/Sex: 72 / M Adm Date: 4 Loc: Room: [address] [place] [address] Type: ADM IN Attending Dr: Geo Thomas [...] any sedation. Continues to wave his head [id number], but not as rapid and not as [...] 08:57 Dextrose IV 08/04/24 10:14 0 mcg/kg/hr .[id number] [facility] 0 mls/hr Titration Protocol 0.2 MCG/KG/HR [...] 07:43 Dextrose IV 08/04/24 10:14 1.5 mcg/kg/hr .[id number] [facility] 36.3 mls/hr Administration Protocol 0.2 MCG/KG/HR [...] uptitrated depending on hyperglycemia adriel reaches his goalrate on tube feeding Documented By: Geo Thomas DO 904 Signed By: <Electronically signed by Geo Thomas DO> 08/14/23 0936 [facility] Work Phone: 1(666) 512-417303-20-2024 Progress note Author Geo Thomas [facility] August 13, 2023 8:46pmNote Date/TimeMar2023 8:46pm[place] [address] Hospitalist Progress Note Signed Patient: Chelsea Diego JR MR#: [id number] : 1950 Acct:[id number] Age/Sex: 72 / M Adm Date: 4 Loc: Room: [address] [place] [address] Type: ADM IN Attending Dr: Geo Thomas [...] to have delirium and encephalopathy and gazes awayafter short period of time. But thisis a [...] 17:29 Dextrose IV 08/04/24 10:14 0.6 mcg/kg/hr .H17I09L KACI 14.52 mls/hr Titration Protocol 0.2 MCG/KG/HR [...] 07:43 Dextrose IV 08/04/24 10:14 1.5 mcg/kg/hr .[id number] K[facility]I 36.3 mls/hr Administration Protocol 0.2 MCG/KG/HR [...] <Electronically signed by Geo Thomas DO> 08/13/232045 [facility] Work Phone: 1(980) 635-822503-20-2024 Progress note Author Morales Mckeon [facility] August 13, 2023 3:17pmNote Date/TimeMar2023 3:17pm[place]urtis[place] [address] Pulmonology Progress Note Signed Patient: Chelsea Diego JR MR#: [id number] : 1950 Acct:[id number] Age/Sex: 72 / M Adm Date: 4 Loc: Room: [address] [place] [address] Type: ADM IN Attending Dr: Geo Thomas [...] <Electronically signed by Morales Mckeon MD> 08/13/23 [facility] Work Phone: 1(179) 762-971903-20-2024 Progress note Author Rancho Kay [facility] August 13, 2023 11:29amNote Date/TimeMarch 2023 11:29am[place]is[place] [address] Nephrology Progress Note Signed Patient: Chelsea Diego JR MR#: [id number] : 1950 Acct:[id number] Age/Sex: 72 / M Adm Date: 4 Loc: Room: [address] [place] [address] Type: ADM IN Attending Dr: Geo Thomas DO Copies to: ~ Date of Service: 08/13/2023 Subjective Subjective Narrative: Mr. Diego is a 72-year-old male with history of DM2, HTN, PAD and prostate cancer. Patient was recently started on hemodialysis during his admission in June 2023 for SONYA possibly related to ATN versus Staph aureus glomerulonephritis. Patient had left diabetic wound s/p tarsometatarsal amputa tion on 10/08. Creatinine has increased up to 5 mg/dL with no evidence of recovery. Patient was discharged to [facility] facility. Patient presented to [facility] from his nursing facility with severe shortness of breath requiring intubation. Chest x-ray showed bilateral pulmonary infiltrate with possible pulmonary edema. Subsequently the patient was transferred to [facility] and he continues to be on [...] Skin: No rashes , warm to touch SAFETY INVESTIGATOR: Awake, alert, spontaneously shakes head and [id number]. Musculoskeletal: No joint swelling or limitation of [...] Puff/18 Gm Inhaler) 6 puff VENT Q6HR [facility] Stop: 07/31/24 11:59 Last Admin: 08/13/23 05:48 Dose: 6 puff Amlodipine Besylate (Amlodipine 5 Mg Tablet) 5 mg OG-TUBE DAILY [facility] Stop: 08/09/24 08:59 Last Admin: 08/13/23 09:09 Dose: 5 mg Chlorhexidine Gluconate (Chlorhexidine Gluconate 0.12% 15 Ml Udc) 15 ml MUCOUS MEM BID [facility] Stop: 07/31/24 08:59 Last Admin: 08/12/23 22:38 Dose: 15 ml Darbepoetin Abisai (Darbepoetin Abisai In Polysorbat 60 Mcg/Ml Vial) 60 mcg IV- PUSHQWEEK [facility]; Protocol Stop: 08/12/24 09:04 Dextrose (Dextrose 50% In Water 25 Gm/50 Ml Syringe) 0 gm IV-PUSH PRN PRN PRN Reason: Hypoglycemia Stop: 07/31/24 08:04 Docusate Sodium (Docusate Liquid 100 Mg/10 Ml Udc) 100 mg PO BID [facility] Stop: 08/03/24 08:59 Last Admin: 08/13/23 09:16 Dose: 100 mg Ferric Sodium Gluconate Complex (Sodium Ferric Gluconat/Sucrose 62.5 Mg/5 Ml Vial) 62.5 mg IV-PUSH We@0900 [facility] Stop: 08/12/24 09:04 Glucose (Dextrose 40% Gel [...] (Dextrose) 100 mls @ 4.84 mls/hr IV .H99Q23M [facility]; Protocol Stop: 08/04/24 10:14 Last Titration: 08/13/23 11:16 Dose: 0.6 mcg/kg/hr, 14.52 mls/hr Midazolam HCl (Versed) 100 mg in 100 mls @ 1 mls/hr IV .Q24H [facility]; Protocol Stop: 02/01/24 22:59 Last Admin: 08/12/23 22:39 Dose: Not Given Meropenem (Merrem) 0.5 gm in 100 mls @ 33.333 mls/hr IV Q24H [facility] Insulin Aspart (Insulin Aspart 300 Units/3 Ml Insuln.Pen) 0 units SUBCUT Q6HR [facility]; Protocol Stop: 07/31/24 11:59 Last Admin: 08/13/23 06:34 Dose: 4 units Lactulose (Lactulose 20 Gm/30 Ml Udc) 20 gm PO BID [facility] Stop: 08/12/24 20:59 Magnesium Hydroxide (Magnesium Hydroxide [...] 40 Mg Vial) 40 mg IV-PUSH DAILY [facility] Stop: 07/31/24 08:59 Last Admin: 08/13/23 09:08 Dose: 40 mg Quetiapine Fumarate (Quetiapine Fumarate 50 Mg Tablet) 50 mg PO BID.9A.2P [facility] Stop: 08/12/24 13:59 Sennosides (Sennosides Syrup 8.8 Mg/5 Ml Udc) 8.8 mg PO BID [facility] Stop: 08/03/24 08:59 Last Admin: 08/13/23 09:16 [...] Pallavi Hernandez M.D.08/12/2023 7:39 PM Dictation Location: [place] [address] 08/12/23 17:45 IMPRESSION: BILATERAL PARENCHYMAL CHANGES, GREATER ON THE RIGHT AND PLEURAL EFFUSIONS, LARGER ON THE LEFT. TINY PERICARDIAL EFFUSION. GRANULOMATOUS CHANGES. PROBABLE RIGHT RENAL CYST. NO BOWEL OR URINARY TRACT OBSTRUCTION. DIVERTICULOSIS. BLADDER WALL THICKENING, PROBABLY DUE TO UNDERDISTENTION THOUGH CORRELATION IS SUGGESTED TO EXCLUDEANY POSSIBILITY OF CYSTITIS. Impression dictated by: Pallavi Hernandez M.D.08/12/2023 7:30 PM Dictation Location: [place] [address] Abdomen X-Ray 08/12/23 19:56 IMPRESSION: NG TUBE AT THE PROXIMAL STOMACH. ADVANCEMENT IS SUGGESTED. Impression dictated by: Pallavi Hernandez M.D.08/12/2023 8:42 PM Dictation Location: [place] [address] Any impression(s) listed above is documentation that was entered by the reading physician into a diagnostic report(s) for Chelsea Diego . I have reviewed the report(s) and am incorporating anyfindings in the treatment plan of this patient [...] Assessment/Problem Details: He has a type II PR likely due to demand ischemia in setting [...] anti-GBM antibodies are negative. 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 Not sure about the clinical significant [...] <Electronically signed by Rancho Kay MD> 08/13/23 1122 [facility] Work Phone: 1(699) 125-522003-19-2024 Progress note Author Geo Thomas [facility] August 12, 2023 9:13pmNote Date/TimeMarch 2023 3:06pm[address] [address] Hospitalist Progress Note Signed Patient: Chelsea Diego JR MR#: [id number] : 1950 Acct:[id number] Age/Sex: 72 / M Adm Date: 4 Loc: Room: [address] [place] [address] Type: ADM IN Attending Dr: Geo Thomas DO Copies to: ~ Date of Service: 08/12/2023 Subjective Subjective Narrative: Mr. Diego is ICU day #11, ventilator day #11 for respiratory failure secondary to Influenza A. Patient had an extubation failure on 08/09 and was reintubated due to mucus plugging and retention ofsecretions. Patient remains encephalopathic with restless and failure to follow commands. Pulmonology consulted and will perform tracheostomy today. Chest x-ray today showed improving parenchymal densities without pleural effusion and pneumothorax. EKG demonstrated sinus tachycardia. WBCs are increased from 22.5 to 40.8. He was started on empiric broad spectrum antibiotic treatment with Clindamycin and Meropenem. Respiratory (PCR) panel performed today detected Influenza A H3. Urinalysis showedproteinuria, leukocyte esterase, and negative nitrites. B- hydroxybutyrate is 1.50. Glucose is 256. Patient will be started on parenteral feeds today. Exam Physical Exam Vital Signs: Temp Pulse Resp BP Pulse Ox O2 Del Method O2 Flow Rate 99.9 F H 104 H 30 H 158/76 H 99 Mechanical Ventilation 35 08/12/23 08:00 08/12/23 11:00 08/12/23 11:00 08/12/23 11:00 08/12/23 11:08/12/23 11:08/12/23 08:00 FiO2 50 08/12/23 11:00 Narrative: Physical [...] 08:58 Dextrose IV 08/04/24 10:14 1 mcg/kg/hr .[id number] [facility]I 24.2 mls/hr Administration Protocol 0.2 MCG/KG/HR [...] Vial SUBCUT 08/01/24 13:59 5,000 unit Q8HR [facility] Administration Sodium Chloride 1,000 mls @ 0 [...] 07:43 Dextrose IV 08/04/24 10:14 1.5 mcg/kg/hr .H85K59U [facility] 36.3 mls/hr Administration Protocol 0.2 MCG/KG/HR [...] <Electronically signed by Geo Thomas DO> 08/12/234 [facility] Work Phone: 1(792) 474-988203-19-2024 Progress note Author Morales Mckeon [facility] August 12, 2023 5:58pmNote Date/TimeMarch 2023 5:48pm[address] [address] Pulmonology Progress Note Signed Patient: Chelsea Diego JR MR#: [id number] : 1950 Acct:[id number] Age/Sex: 72 / M Adm Date: 4 Loc: Room: [address] [place] [address] Type: ADM IN Attending Dr: Geo Thomas [...] supportive care. Documented By: Morales Mckeon MD 174 Signed By: <Electronically signed by Morales Mckeon MD> 08/12/23 0829 [facility] Work Phone: 1(385) 111-208803-19-2024 Consult note Author Tori Juan [facility] August 12, 2023 3:47pmNote Date/TimeMarch 2023 3:16[place] [address] Podiatry Consult Note Signed Patient: Chelsea Diego JR MR#: [id number] : 1950 Acct:[id number] Age/Sex: 72 / M Adm Date: 4 Loc: Room: [address] [place] [address] Type: ADM IN Attending Dr: Geo Thomas [...] [facility] Influenza A. He is seen in the ICU and is currently intubated. Podiatry is consulted to re-evaluate wound and incision to the left foot with dehiscense. No other complaints. Review of Systems Review of Systems Unobtainable due to endotracheal tube [facility] Medical History (Updated 08/12/23 @ 15:45 by [...] of left foot Sciatica, left side Cataract Snigh's palsy Hypertension GERD (gastroesophageal reflux disease) Diabetes [...] [History Confirmed 08/01/23] flash glucose sensor (FreeStyle Armando 2 Sensor kit) 01/13/23 [History Confirmed 07/16/23] [...] mg) PO Q6HR PRN nausea with dialysis #10tabs 07/26/23 [Rx Confirmed 08/01/23] pantoprazole 40 mg [...] left lower extremity. There is no evidence ofcellulitis, no streaking or warmth is noted. Dermatology: [...] drainage, smell or concern for deep infection. Sutureswere removed to the incision site along theleft [...] <Electronically signed by TOY Juan> 08/12/23 1547 [facility] Work Phone: 1(109) 675-424603-19-2024 Progress note Author Pravin Rivers [facility] August 12, 2023 1:02pmNote Date/TimeMarch 2023 1:02pm[place] [address] Neurology Progress Note Signed Patient: Chelsea Diego JR MR#: [id number] : 1950 Acct:[id number] Age/Sex: 72 / M Adm Date: 4 Loc: Room: [address] [place] [address] Type: ADM IN Attending Dr: Geo Thomas [...] <Electronically signed by Pravin Rivers DO> 08/12/23 1302 [facility] Work Phone: [phone]) [phone] Progress note Author Rancho Kay [facility] August 12, 2023 12:39pmNote Date/TimeMarch 2023 12:39pm[place] [address] Nephrology Progress Note Signed Patient: Chelsea Diego JR MR#: [id number] : 1950 Acct:[id number] Age/Sex: 72 / M Adm Date: 4 Loc: Room: [address] [place] [address] Type: ADM IN Attending Dr: Geo Thomas DO Copies to: ~ Date of Service: 08/12/2023 Subjective Subjective Narrative: Mr. Diego is a 72-year-old male with history of DM2, HTN, PAD and prostate cancer. Patient was recently started on hemodialysis during his admission in June 2023 for SONYA possibly related to ATN versus Staph aureus glomerulonephritis. Patient had left diabetic wound s/p tarsometatarsal amputa tion on 10/08. Creatinine has increased up to 5 mg/dL with no evidence of recovery. Patient was discharged to [facility] facility. Patient presented to [facility] from his nursing facility with severe shortness of breath requiring intubation. Chest x-ray showed bilateral pulmonary infiltrate with possible pulmonary edema. Subsequently the patient was transferred to [facility] and he continues to be on [...] Ventilation 35 08/12/23 12:00 08/12/23 12:00 08/12/23 12:08/12/23 12:00 08/12/23 12:00 08/12/23 12:08/12/23 12:00 FiO2 50 08/12/23 12:00 Narrative: General: Appears comfortable and not in distress Heart: S1-S2, no rub Lung: Bilateral air entry, no wheezing or crackles Abdomen: Soft, positive bowel sounds Extremities: No edema, no cyanosis Head: Atraumatic, normocephalic Ear: No external ear redness or tenderness Eyes: No pallor or redness Neck: No JVD or visible mass Skin: No rashes , warm to touch SAFETY INVESTIGATOR: Intubated and sedated. Musculoskeletal: No joint swelling or limitation of movement Objective Intake and Output I&O: Intake & Output 08/09/23 08/10/23 08/11/23 08/12/23 23:59 23:59 23:59 23:59 Intake Total 730 / 730 920 / 920 1000 / 1000 300 / 300 Output Total 30 / 30 85 / 85 2564 / 2564 15 15 Balance 700 / 700 835 / [...] (Dextrose) 100 mls @ 4.84 mls/hr IV .[id number] [facility]; Protocol Stop: 08/04/24 10:14 Last Admin: 08/12/23 08:58 Dose: 1 mcg/kg/hr, 24.2 mls/hr Midazolam HCl (Versed) 100 mg in 100 mls @ 1 mls/hr IV .Q24H [facility]; Protocol Stop: 02/01/24 22:59 Last Admin: 08/12/23 01:46 Dose: Not Given Clindamycin Phosphate (Cleocin) 900 mg in 50 mls @ 100 mls/hr IV PREOP ONE Stop: 08/12/23 15:29 Meropenem (Merrem) 0.5 gm in 100 mls @ 33.333 mls/hr IV Q24H [facility] Insulin Aspart (Insulin Aspart 300 Units/3 Ml Insuln.Pen) 0 units SUBCUT Q6HR [facility]; Protocol Stop: 07/31/24 11:59 Last Admin: 08/12/23 12:03 Dose: 14 units Magnesium Hydroxide (Magnesium Hydroxide Susp 30 Ml Udc) 30 ml PO DAILY PRN PRN Reason: Constipation Stop: 08/02/24 22:13 Metoclopramide HCl (Metoclopramide 10 Mg/2 Ml Vial) 5 mg IV-PUSH Q6HR [facility] Stop: 08/10/24 11:59 Last Admin: 08/12/23 06:24 [...] 40 Mg Vial) 40 mg IV-PUSH DAILY [facility] Stop: 07/31/24 08:59 Last Admin: 08/12/23 09:00 Dose: 40 mg Sennosides (Sennosides Syrup 8.8 Mg/5 Ml Udc) 8.8 mg PO BID [facility] Stop: 08/03/24 08:59 Last Admin: 08/12/23 09:00 [...] Turbid A Urine pH 5.0 Ur Specific D[place]ton 1.027 Urine Protein 300 H Urine Glucose (UA) Normal Urine Ketones Trace H Urine Occult Blood 1+ H Urine Nitrite Negative Ur Leukocyte Esterase 3+ H Urine RBC 3-4 Urine WBC 50-100 H Urine Bacteria 1+ H Radiology Impressions Impressions - last 24 hours: Impressions Chest X-Ray 08/12/23 05:00 IMPRESSION: Improving parenchymal densities. Impression dictated by: Dhruv Conroy M.D.08/12/2023 7:44 AM Dictation Location: [place] [address] Any impression(s) listed above is documentation that was entered by the reading physician into a diagnostic report(s) for Chelsea Diego JR. I have reviewed the report(s) and am incorporating anyfindings in the treatment plan of this patient [...] Assessment/Problem Details: He has a type II PR likely due to demand ischemia in setting [...] anti-GBM antibodies are negative. 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 Not sure about the clinical significant [...] 1235 Signed By: <Electronically signed by Rancho Kya MD> 08/12/23 1239 [facility] Work Phone: 1(612) 226-372103-19-2024 Progress note Author Mehul Garrett [facility] August 12, 2023 9:28amNote Date/TimeMarch 2023 8:22[place] [address] Pulmonology Progress Note Signed Patient: Chelsea Diego JR MR#: [id number] : 1950 Acct:[id number] Age/Sex: 72 / M Adm Date: 4 Loc: Room: [address] [place] [address] Type: ADM IN Attending Dr: Geo Thomas [...] / 920 200 / 200 Output Total 48 / 48 Balance 385 / 835 [...] agreeable. Consult was placed. In the meantime, wewill discontinue the Geodon and start tube feeds and start metoclopromide and monitor QTc. Continuesupportive care. Documented By: Mehul Garrett MD 4 0821 Signed By: <Electronically signed by MD Mehul Garrett> 08/12/23 0928 [facility] Work Phone: 1(950) 966-272803-18-2024 Consult note Author Darryl Britt [facility] August 11, 2023 5:14pmNote Date/TimeMarch 2023 5:14pm[place] [address] ENT Consult Note Signed Patient: Chelsea Diego JR MR#: [id number] : 1950 Acct:[id number] Age/Sex: 72 / M Adm Date: 4 Loc: Room: 3Q5654-9 Type: ADM IN Attending Dr: Geo Thomas [...] and no additional complaints, except as documented [facility] Medical History (Updated 08/11/23 @ 17:14 by [...] [History Confirmed 08/01/23] flash glucose sensor (FreeStyle Armando 2 Sensor kit) 01/13/23 [History Confirmed 07/16/23] [...] mg) PO Q6HR PRN nausea with dialysis #10tabs 07/26/23 [Rx Confirmed 08/01/23] pantoprazole 40 mg [...] (Dextrose) 100 mls @ 4.84 mls/hr IV .C11C40Q [facility]; Protocol Stop: 08/04/24 10:14 Last Admin: 08/11/23 11:55 Dose: 0.6 mcg/kg/hr, 14.52 mls/hr Midazolam HCl (Versed) 100 mg in 100 mls @ 1 mls/hr IV .Q24H [facility]; Protocol Stop: 02/01/24 22:59 Last Admin: 08/10/23 22:07 Dose: Not Given Insulin Aspart (Insulin Aspart 300 Units/3 Ml Insuln.Pen) 0 units SUBCUT Q6HR [facility]; Protocol Stop: 07/31/24 11:59 Last Admin: 08/11/23 13:16 Dose: 2 units Magnesium Hydroxide (Magnesium Hydroxide Susp 30 Ml Udc) 30 ml PO DAILY PRN PRN Reason: Constipation Stop: 08/02/24 22:13 Metoclopramide HCl (Metoclopramide 10 Mg/2 Ml Vial) 5 mg IV-PUSH Q6HR [facility] Stop: 08/10/24 11:59 Last Admin: 08/11/23 13:12 [...] 40 Mg Vial) 40 mg IV-PUSH DAILY [facility] Stop: 07/31/24 08:59 Last Admin: 08/11/23 08:46 Dose: 40 mg Sennosides (Sennosides Syrup 8.8 Mg/5 Ml Udc) 8.8 mg PO BID [facility] Stop: 08/03/24 08:59 Last Admin: 08/11/23 08:46 [...] oral and has a orogastric tube. He iscompletely nonresponsive though his eyes are open and heis moving his head [id number]. He does not respond to verbal stimuli. [...] % (Auto) N/A, Lymph % (Auto) N/A, [place] % (Auto) N/A, Eos % (Auto) N/A, Baso % (Auto) N/A, Nucleat RBC Rel Count N/A, Neut # (Auto) N/A, Lymph # (Auto) N/A, [place] # (Auto) N/A, Eos # (Auto) N/A, Baso # (Auto) N/A, Lymphocytes % 6 L, Monocytes % 12 H, Eosinophils % 0 L, Basophils % 0, Metamyelocytes % 3 H, Myelocytes % 1 H,Segmented Neutrophils 78 H, Platelet Estimate Increased, Large Platelets Slight, Plt Morphology Comment N/A, RBC Morphology N/A, Poikilocytosis Slight, Anisocytosis Slight, Ovalocytes Slight, Schistocytes Slight, PHA Creatinine Clear 19.44, Sodium 125 L, Potassium 4.8, Chloride 89 L, Carbon Mlprngj02.9, Anion Gap 17.9 H, BUN 70 H, [...] Set Respiration Rate 14, Vent Mode Ac, SbF320, Tidal Volume 500, PEEP 5, Critical Value [...] MPV 7.3, Neut % (Auto) 75.8, Lymph %(Auto) 7.4, [place] % (Auto) 13.8, Eos % (Auto) 2.5, Baso % (Auto) 0.5, Nucleat RBC Rel Count 0.0, Neut # (Auto) 14.7 H, Lymph # (Auto) 1.4, [place] # (Auto) 2.7 H, Eos # (Auto) [...] RBC 3.27 L, Hgb 9.6 L, Hct 29.0L, MCV 88.7, MCH 29.4, MCHC 33.1, RDW 18.0 H, Plt Count 512 H, MPV 7.5, Neut % (Auto) 75.6, Lymph %(Auto) 8.4, [place] % (Auto) 14.1, Eos % (Auto) 1.6, Baso % (Auto) 0.3, Nucleat RBC Rel Count 0.1, Neut # (Auto) 13.9 H, Lymph # (Auto) 1.6, [place] # (Auto) 2.6 H, Eos # (Auto) 0.3, Baso # (Auto) 0.1, PHACreatinine Clear 26.38, Sodium 127 L, Potassium 4.5, [...] I willperform this tomorrow afternoon in the operatingroom. Documented By: Darryl Britt DO 08/11/23 170 5 Signed By: <Electronically signed by DO Darryl Britt> 08/11/23 2044 [facility] Work Phone: 1(634) 930-229403-18-2024 Progress note Author Rancho Kay [facility] August 11, 2023 11:09amNote Date/TimeMarch 2023 11:10am[place] [address] Nephrology Progress Note Signed Patient: Chelsea Diego JR MR#: [id number] : 1950 Acct:[id number] Age/Sex: 72 / M Adm Date: 4 Loc: Room: 1U0534-6 Type: ADM IN Attending Dr: Geo Thomas DO Copies to: ~ Date of Service: 08/11/2023 Subjective Subjective Narrative: Mr. Diego is a 72-year-old male with history of DM2, HTN, PAD and prostate cancer. Patient was recently started on hemodialysis during his admission in June 2023 for SONYA possibly related to ATN versus Staph aureus glomerulonephritis. Patient had left diabetic wound s/p tarsometatarsal amputa tion on 10/08. Creatinine has increased up to 5 mg/dL with no evidence of recovery. Patient was discharged to [facility] facility. Patient presented to [facility] from his nursing facility with severe shortness of breath requiring intubation. Chest x-ray showed bilateral pulmonary infiltrate with possible pulmonary edema. Subsequently the patient was transferred to [facility] and he continues to be on [...] Skin: No rashes , warm to touch SAFETY INVESTIGATOR: Intubated and sedated. Musculoskeletal: No joint swelling [...] [facility] Stop: 08/01/24 13:59 Last Admin: 08/11/23 05:57 [...] (Dextrose) 100 mls @ 4.84 mls/hr IV .V10G22H [facility]; Protocol Stop: 08/04/24 10:14 Last Titration: 08/11/23 10:17 Dose: 0.6 mcg/kg/hr, 14.52 mls/hr Midazolam HCl (Versed) 100 mg in 100 mls @ 1 mls/hr IV .Q24H [facility]; Protocol Stop: 02/01/24 22:59 Last Admin: 08/10/23 22:07 Dose: Not Given Insulin Aspart (Insulin Aspart 300 Units/3 Ml Insuln.Pen) 0 units SUBCUT Q6HR [facility]; Protocol Stop: 07/31/24 11:59 Last Admin: 08/11/23 05:58 Dose: 2 units Magnesium Hydroxide (Magnesium Hydroxide Susp 30 Ml Udc) 30 ml PO DAILY PRN PRN Reason: Constipation Stop: 08/02/24 22:13 Metoclopramide HCl (Metoclopramide 10 Mg/2 Ml Vial) 5 mg IV-PUSH Q6HR [facility] Stop: 08/10/24 11:59 Midazolam HCl (Midazolam/Pf 2 Mg/2 Ml Vial) 4 mg IV-PUSH Q3H PRN PRN Reason: Agitation Stop: 02/01/24 11:11 Last Admin: 08/05/23 22:41 Dose: 4 mg Midazolam HCl (Midazolam/Pf 2 Mg/2 Ml Vial) 4 mg IV-PUSH ONCE PRN PRN Reason: sedation Last Admin: 08/08/23 13:00 Dose: 4 mg Pantoprazole Sodium (Pantoprazole 40 Mg Vial) 40 mg IV-PUSH DAILY [facility] Stop: 07/31/24 08:59 Last Admin: 08/11/23 08:46 Dose: 40 mg Sennosides (Sennosides Syrup 8.8 Mg/5 Ml Udc) 8.8 mg PO BID [facility] Stop: 08/03/24 08:59 Last Admin: 08/11/23 08:46 [...] Nathan Lemus M.D.08/10/2023 5:50 PM Dictation Location: [place] [address] Chest X-Ray 08/11/23 05:00 IMPRESSION: SIMILAR PARENCHYMAL CHANGES. Impression dictated by: Pallavi Hernandez M.D.08/11/2023 6:58 AM Dictation Location: [place] [address] Any impression(s) listed above is documentation that was entered by the reading physician into a diagnostic report(s) for Chelsea Diego JR. I have reviewed the report(s) and am incorporating anyfindings in the treatment plan of this patient [...] Assessment/Problem Details: He has a type II PR likely due to demand ischemia in setting [...] anti-GBM antibodies are negative. 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 Not sure about the clinical significant of these. Might have to do kidney biopsy when the patient is more stable. * Blood pressure remains elevated this morning. I will add Norvasc 5 mg p.o daily. Patient has beenalso on as needed hydralazine * Patient had 2 units of packed RBCs earlier this admission. Will continue to monitor H&H and transfuse as needed * Vent management as directed by pulmonary service * Will monitor daily intake, output and renal panel to adjust medications and dialysis prescriptionas indicated. * Case was discussed with the Dr. Garrett. Documented By: Rancho Kay MD 08/11/231102 Signed By: <Electronically signed by Rancho Kay MD> 08/11/23 1103 [facility] Work Phone: 1(698) 195-437303-18-2024 Progress note Author Geo Thomas [facility] August 11, 2023 11:02amNote Date/TimeMarch 2023 10:50[place] [address] Hospitalist Progress Note Signed Patient: Chelsea Diego JR MR#: [id number] : 1950 Acct:[id number] Age/Sex: 72 / M Adm Date: 4 Loc: Room: 7P8543-3 Type: ADM IN Attending Dr: Geo Thomas [...] 10:17 Dextrose IV 08/04/24 10:14 0.6 mcg/kg/hr .[id number] [facility] 14.52 mls/hr Titration Protocol 0.2 MCG/KG/HR [...] Encephalopathy: (8) Anemia of renal disease: [place] [address] Hospitalist Progress Note Signed Patient: Chelsea Diego JR MR#: [id number] : 1950 Acct:[id number] Age/Sex: 72 / M Adm Date: 08/01/23 Loc: Room: [address] [place] [address] Type: ADM INAttending Dr: Vania Chacon MD [...] 07:43 Dextrose IV 08/04/24 10:14 1.5 mcg/kg/hr .W96Q18P [facility] 36.3 mls/hr Administration Protocol 0.2 MCG/KG/HR [...] 1044 Signed By: <Electronically signed by Geo Thomas, > 08/11/23 1102 [facility] Work Phone: 1(335) [phone] [facility] Progress note Author Eulogio Ruvalcaba [facility] August 10, 2023 2:43pmNote Date/TimeMarch 2023 2:43pm[place] [address] Hospitalist Progress Note Signed Patient: Chelsea Diego JR MR#: [id number] : 1950 Acct:[id number] Age/Sex: 72 / M Adm Date: 4 Loc: Room: [address] [place] [address] Type: ADM IN Attending Dr: Eulogio Ruvalcaba MD Copies to: ~ Date of Service: 08/10/2023 Subjective Subjective Narrative: Seen and examined Patient was extubated at about 12 noon. He was intubated about 9 days. Patient is getting supplemental oxygen via nasal cannula. Cartridge Assembler is following. No fever. Patient was slightly [...] 14:05 Dextrose IV 08/04/24 10:14 0.7 mcg/kg/hr .[id number] [facility] 16.94 mls/hr Titration Protocol 0.2 MCG/KG/HR [...] heparin Documented By: Eulogio Ruvalcaba MD 08/10/23 1436 Signed By: <Electronically signed by Eulogio Ruvalcaba MD> 08/10/23 5911 [facility] Work Phone: 1(205) 611-537103-17-2024 Progress note Author Mehul Garrett [facility] August 10, 2023 2:03pmNote Date/TimeMarch 2023 10:50[place] [address] Pulmonology Progress Note Signed Patient: Chelsea Diego JR MR#: [id number] : 1950 Acct:[id number] Age/Sex: 72 / M Adm Date: 4 Loc: Room: [address] [place] [address] Type: ADM IN Attending Dr: Eulogio Ruvalcaba [...] / 360 100 / 360 Output Total / 30 55 / 55 Balance 240 [...] Content 6.3 L ABG Base Excess 1.2 /22/10 Assessment/Plan Assessment/Plan (1) Acute hypoxic respiratory failure: [...] increase in QT interval. Neurology input is apprecia jewel. There is no other etiology for the patient's confusion and question whether someof this may besimply related to the fact that the patient is intubated and encephalopathic. We will proceed with extubation and gradually wean off dexmedetomidine and continue Geodon neither of which will suppressrespiratory drive. Continue supportive care. Documented By: Mehul Garrett MD 4 1049 Signed By: <Electronically signed by MD Mehul Garrett> 08/10/23 1403 [facility] Work Phone: 1(113) 562-203703-17-2024 Progress note Author Debbie Dennis [facility] August 10, 2023 10:54amNote Date/TimeMarch 2023 10:27[place] [address] Neurology Progress Note Signed Patient: Chelsea Diego JR MR#: [id number] : 1950 Acct:[id number] Age/Sex: 72 / M Adm Date: 4 Loc: Room: [address] [place] [address] Type: ADM IN Attending Dr: Eulogio Ruvalcaba [...] bilateral upper extremity but less inthe bilateral lowerextremity Withdrawal there is not significant withdraw in [...] alert and responsive as we would like to.He did show a slight improvement today and [...] the nose. MRI of the brain was nonacut e with evidence of a meningioma that is incidental finding. At this time unfortunately just need togive him more time and see if he improves cognitively. PLAN: Plan: MRI brain : There is a T2 FLAIR hyperintense structure projecting to the right of midline emanatingfrom the falx along the interhemispheric fissure measuring [...] signed by DO Debbie Dennis> 08/10/23 1054 [facility] Work Phone: 1(488) 201-716903-17-2024 Progress note Author Sanket Hammer [facility] August 10, 2023 10:31amNote Date/TimeMarch 2023 10:31[place] [address] Nephrology Progress Note Signed Patient: Chelsea Diego JR MR#: [id number] : 1950 Acct:[id number] Age/Sex: 72 / M Adm Date: 4 Loc: Room: 9R9815-2 Type: ADM IN Attending Dr: Eulogio Ruvalcaba MD Copies to: ~ Date of Service: 08/10/2023 Subjective Subjective Narrative: Mr. Diego is a 72-year-old male with history of DM2, HTN, PAD and prostate cancer. Patient was recently started on hemodialysis during his admission in June 2023 for SONYA possibly related to ATN versus Staph aureus glomerulonephritis. Patient had left diabetic wound s/p tarsometatarsal amputa tion on 10/08. Creatinine has increased up to 5 mg/dL with no evidence of recovery. Patient was discharged to [facility] facility. Patient presented to [facility] from his nursing facility with severe shortness of breath requiring intubation. Chest x-ray showed bilateral pulmonary infiltrate with possible pulmonary edema. Subsequently the patient was transferred to [facility] and he continues to be on [...] 5,000 Unit/Ml Vial) 5,000 unit SUBCUT Q8HR [facility] Stop: 08/01/24 13:59 Last Admin: 08/10/23 05:35 [...] (Dextrose) 100 mls @ 4.84 mls/hr IV .[id number] [facility]; Protocol Stop: 08/04/24 10:14 Last Admin: 08/10/23 08:03 Dose: 1.2 mcg/kg/hr, 29.04 mls/hr Midazolam HCl (Versed) 100 mg in 100 mls @ 1 mls/hr IV .Q24H [facility]; Protocol Stop: 02/01/24 22:59 Last Titration: 08/10/23 09:47 Dose: 0 mg/hr, 0 mls/hr Insulin Aspart (Insulin Aspart 300 Units/3 Ml Insuln.Pen) 0 units SUBCUT Q6HR [facility]; Protocol Stop: 07/31/24 11:59 Last Admin: 08/10/23 [...] 40 Mg Vial) 40 mg IV-PUSH DAILY [facility] Stop: 07/31/24 08:59 Last Admin: 08/10/23 08:12 Dose: 40 mg Sennosides (Sennosides Syrup 8.8 Mg/5 Ml Udc) 8.8 mg PO BID [facility] Stop: 08/03/24 08:59 Last Admin: 08/10/23 08:11 [...] Nathan Lemus M.D.08/08/2023 3:36 PM Dictation Location: [place] [address] ADDENDUM: 08/09/23 1143 IMPRESSION: There is a T2 FLAIR hyperintense structure projecting to the right of midline emanating from the falx along the interhemispheric fissure measuring 1.6 x 0.8 x1.0 cm. 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 No acute intracranial pathology. Chronic age-related neurodegenerative changes are noted, as above. Impression dictated by: Nathan Lemus M.D.08/09/2023 11:41 AM Dictation Location: [place] [address] Chest X-Ray 08/10/23 05:00 IMPRESSION: Unchanged chest. Impression dictated by: Nathan Lemus M.D.08/10/2023 8:01 AM Dictation Location: [place] [address] Any impression(s) listed above is documentation that was entered by the reading physician into a diagnostic report(s) for Chelsea Diego JR. I have reviewed the report(s) and am incorporating anyfindings in the treatment plan of this patient [...] anti-GBM antibodies are negative. 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 Not sure about the clinical significant of these. Might have to do kidney biopsy when the patient is more stable. * Serum sodium level remains low despite significant ultrafiltration. Will aim for high ultrafiltration tomorrow * Blood pressure remains elevated this morning. I will add Norvasc 5 mg p.o daily. Patient has beenalso on as needed hydralazine * Patient had 2 units of packed RBCs earlier this admission. Hemoglobin is up to 10.2 Will continueto monitor H&H and transfuse as needed * Vent management as directed by pulmonary service * Will monitor daily intake, output and renal panel to adjust medications and dialysis prescriptionas indicated. Documented By: Sanket Hammer MD 08/10/23 1029 Signed By: <Electronically signed by Sanket Hammer MD> 08/10/23 1031 [facility] Work Phone: 1(393) 510-305203-16-2024 Progress note Author Eulogio Ruvalcaba [facility] August 09, 2023 2:29pmNote Date/TimeMarch 2023 2:29[place] [address] Hospitalist Progress Note Signed Patient: Chelsea Diego JR MR#: [id number] : 1950 Acct:[id number] Age/Sex: 72 / M Adm Date: 4 Loc: Room: [address] [place] [address] Type: ADM IN Attending Dr: Eulogio Ruvalcaba [...] 12:37 Dextrose IV 08/04/24 10:14 1.2 mcg/kg/hr .[id number] [facility] 29.04 mls/hr Administration Protocol 0.2 MCG/KG/HR [...] signed by Eulogio Ruvalcaba MD> 08/09/23 1429 [facility] Work Phone: 1(129) 566-449203-16-2024 Progress note Author Debbie Dennis [facility] August 09, 2023 1:14pmNote Date/TimeMarch 2023 11:39[place] [address] Neurology Progress Note Signed Patient: Chelsea Diego JR MR#: [id number] : 1950 Acct:[id number] Age/Sex: 72 / M Adm Date: 4 Loc: Room: [address] [place] [address] Type: ADM IN Attending Dr: Eulogio Ruvalcaba [...] Fraction of Inspired Oxygen 40 40 40 03/16/24 03:53 08/09/23 04:00 08/09/23 04:00 Temperature 99.3 [...] of a meningioma that is incidental finding. Atthis time unfortunately just need to give him more time and see if he improves cognitively. PLAN: Plan: MRI brain : There is a T2 FLAIR hyperintense structure projecting to the right of midline emanatingfrom the falx along the interhemispheric fissure measuring 1.6 x 0.8 x 1.0 cm. Consistent with meningioma EEG was slow Continue with care by the other services Will follow along Hopeful for gradual improvement however unfortunately there is no guarantee Plan: Plan Documented By: Debbie Dennis DO 08/09/23 1138 Signed By: <Electronically signed by DO Debbie Dennis> 08/09/23 1313 [facility] Work Phone: 1([phone]) 211-776603-16-2024 Progress note [facility] August 09, 2023 11:41amNote Date/TimeMarch 2023 11:41[place] [address] Nephrology Progress Note Signed Patient: Chelsea Diego JR MR#: [id number] : 1950 Acct:[id number] Age/Sex: 72 / M Adm Date: 4 Loc: Room: 7Z5709-9 Type: ADM IN Attending Dr: Eulogio Ruvalcaba MD Copies to: ~ Date of Service: 08/09/2023 Subjective Subjective Narrative: Mr. Diego is a 72-year-old male with history of DM2, HTN, PAD and prostate cancer. Patient was recently started on hemodialysis during his admission in June 2023 for SONYA possibly related to ATN versus Staph aureus glomerulonephritis. Patient had left diabetic wound s/p tarsometatarsal amputa tion on 10/08. Creatinine has increased up to 5 mg/dL with no evidence of recovery. Patient was discharged to [facility] facility. Patient presented to [facility] from his nursing facility with severe shortness of breath requiring intubation. Chest x-ray showed bilateral pulmonary infiltrate with possible pulmonary edema. Subsequently the patient was transferred to [facility] and he continues to be on [...] 08/09/23 11:00 08/09/23 11:00 08/09/23 11:00 08/09/23 11:08/09/23 11:00 Narrative: General: Patient is calm. No [...] 23:59 23:59 23:59 23:59 Intake Total 1979 1073 / 1073 869 / 869 [...] Ml Udc) 15 ml MUCOUS MEM BID [facility] Stop: 07/31/24 08:59 Last Admin: 08/09/23 08:25 [...] Q8HR [facility] Stop: 08/01/24 13:59 Last Admin: 08/09/23 06:30 [...] (Dextrose) 100 mls @ 4.84 mls/hr IV .[id number] [facility]; Protocol Stop: 08/04/24 10:14 Last Admin: 08/09/23 09:13 Dose: 1.2 mcg/kg/hr, 29.04 mls/hr Midazolam HCl (Versed) 100 mg in 100 mls @ 1 mls/hr IV .Q24H [facility]; Protocol Stop: 02/01/24 22:59 Last Admin: 08/09/23 02:35 Dose: Not Given Magnesium Sulfate (Magnesium Sulf 2gm-*Swfi*) 2 gm in 50 mls @ 25 mls/hr IV ONCE ONE Stop: 08/09/23 12:12 Last Admin: 08/09/23 10:44 Dose: 25 mls/hr Insulin Aspart (Insulin Aspart 300 Units/3 Ml Insuln.Pen) 0 units SUBCUT Q6HR [facility]; Protocol Stop: 07/31/24 11:59 Last Admin: 08/09/23 [...] 40 Mg Vial) 40 mg IV-PUSH DAILY [facility] Stop: 07/31/24 08:59 Last Admin: 08/09/23 08:25 [...] Nathan Lemus M.D.08/08/2023 3:36 PM Dictation Location: [place] [address] Chest X-Ray 08/09/23 05:00 IMPRESSION: Perihilar vascular prominence and interstitial prominence are redemonstrated. Improving airspace opacities noted in the right perihilar region. Impression dictated by: Nathan Lemus M.D.08/09/2023 8:15 AM Dictation Location: [place] [address] Any impression(s) listed above is documentation that was entered by the reading physician into a diagnostic report(s) for Chelsea Diego JR. I have reviewed the report(s) and am incorporating anyfindings in the treatment plan of this patient [...] anti-GBM antibodies are negative. 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 Not sure about the clinical significant [...] renal panel to adjust medications and dialysis prescriptionas indicated. Documented By: Sanket Hammer MD 08/09/23 1138 Signed By: <Electronically signed by Sanket Hammer MD> 08/09/23 1141 [facility] Work Phone: 1(157) 979-773303-16-2024 Progress note Author Mehul Garrett [facility] August 09, 2023 11:30amNote Date/TimeMarch 2023 9:29[place] [address] Pulmonology Progress Note Signed Patient: Chelsea Diego JR MR#: [id number] : 1950 Acct:[id number] Age/Sex: 72 / M Adm Date: 4 Loc: Room: [address] [place] [address] Type: ADM IN Attending Dr: Eulogio Ruvalcaba MD Copies to: ~ Date of Service: 08/09/2023 Subjective Subjective Narrative: Patient is actually more calm and sedated today on Precedex drip as well as Versed drip. There wereotherwise no other issues overnight. Exam Physical Exam [...] Content 6.2 L ABG Base Excess 2.3 14/40/5 Assessment/Plan Assessment/Plan (1) Acute hypoxic respiratory failure: [...] MRI were reviewed and await further neurology recommendations.I will start the patient on scheduled IM Geodon twice daily and hopefully will be able to graduallywean Versed drip which will allow us to work toward extubation. Continue supportive care. Documented By: Mehul Garrett MD 4 8114 Signed By: <Electronically signed by MD Mehul Garrett> 08/09/23 1108 [facility] Work Phone: 1(488) 709-752803-15-2024 Progress note Author Pravin Rivers [facility] August 08, 2023 2:10pmNote Date/TimeMar2023 2:[place] [address] Neurology Progress Note Signed Patient: Chelsea Diego JR MR#: [id number] : 1950 Acct:[id number] Age/Sex: 72 / M Adm Date: 4 Loc: Room: [address] [place] [address] Type: ADM IN Attending Dr: Vania Chacon [...] Head CT was without any evidence of acuteor concerning findings. Routine EEG looked normal. MRI looks to show a right frontal parafalcine 1 cm lesion; radiology report is pending. I would not expect a lesion of that size in that location tohave any significant contribution to his overall mental status. PLAN: 1. Await MRI brain report Plan: Plan Documented By: Pravin Rivers DO 08/08/23 1407 Signed By: <Electronically signed by Pravin Rivers DO> 08/08/23 1410 [facility] Work Phone: 1([phone]) 231-857803-15-2024 Progress note [facility] August 08, 2023 12:08pmNote Date/TimeMarch 2023 12:08pm[place] [address] Nephrology Progress Note Signed Patient: Chelsea Diego JR MR#: [id number] : 1950 Acct:[id number] Age/Sex: 72 / M Adm Date: 4 Loc: Room: [address] [place] [address] Type: ADM IN Attending Dr: Vania Chacon MD Copies to: ~ Date of Service: 08/08/2023 Subjective Subjective Narrative: Mr. Diego is a 72-year-old male with history of DM2, HTN, PAD and prostate cancer. Patient was recently started on hemodialysis during his admission in June 2023 for SONYA possibly related to ATN versus Staph aureus glomerulonephritis. Patient had left diabetic wound s/p tarsometatarsal amputa tion on 10/08. Creatinine has increased up to 5 mg/dL with no evidence of recovery. Patient was discharged to [facility] facility. Patient presented to [facility] from his nursing facility with severe shortness of breath requiring intubation. Chest x-ray showed bilateral pulmonary infiltrate with possible pulmonary edema. Subsequently the patient was transferred to [facility] and he continues to be on [...] Ventilation 40 08/08/23 08:00 08/08/23 10:00 08/08/23 10:08/08/23 10:08/08/23 10:08/08/23 10:08/08/23 10:00 Narrative: General: Patient is calm. [...] 157 4643 / 4643 65 / 65 Balance 1543 / 1543 -2663 / -2663 [...] (Dextrose) 100 mls @ 4.84 mls/hr IV .[id number] [facility]; Protocol Stop: 08/04/24 10:14 Last Titration: 08/08/23 07:43 Dose: 0.7 mcg/kg/hr, 16.94 mls/hr Midazolam HCl (Versed) 100 mg in 100 mls @ 1 mls/hr IV .Q24H [facility]; Protocol Stop: 02/01/24 22:59 Last Titration: 08/08/23 05:58 Dose: 2 mg/hr, 2 mls/hr Insulin Aspart (Insulin Aspart 300 Units/3 Ml Insuln.Pen) 0 units SUBCUT Q6HR [facility]; Protocol Stop: 07/31/24 11:59 Last Admin: 08/08/23 [...] 40 Mg Vial) 40 mg IV-PUSH DAILY [facility] Stop: 07/31/24 08:59 Last Admin: 08/08/23 09:41 Dose: 40 mg Sennosides (Sennosides Syrup 8.8 Mg/5 Ml Udc) 8.8 mg PO BID [facility] Stop: 08/03/24 08:59 Last Admin: 08/08/23 09:41 [...] Simmons Jr., D.O.08/08/2023 8:26 AM Dictation Location: [place] [address] Any impression(s) listed above is documentation that was entered by the reading physician into a diagnostic report(s) for Chelsea Diego JR. I have reviewed the report(s) and am incorporating anyfindings in the treatment plan of this patient [...] anti-GBM antibodies are negative. 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 Not sure about the clinical significant of these. Might have to do kidney biopsy statics the patient * Serum sodium level is down to 126 mmol. This should improve with hemodialysis and ultrafiltration.please keep output more than input * Noted [...] renal panel to adjust medications and dialysis prescriptionas indicated. Documented By: Sanket Hammer MD 08/08/231203 Signed By: <Electronically signed by Sanket Hammer MD> 08/08/23 1201 [facility] Work Phone: 1(634) 228-655103-15-2024 Progress note Author Mehul Garrett [facility] August 08, 2023 11:54amNote Date/TimeMarch 2023 8:32[place] [address] Pulmonology Progress Note Signed Patient: Chelsea Diego JR MR#: [id number] : 1950 Acct:[id number] Age/Sex: 72 / M Adm Date: 4 Loc: Room: [address] [place] [address] Type: ADM IN Attending Dr: Vania Chacon [...] satisfactory positions. Right-sided dialysis catheter is identified andappears unchanged in position. Heart and mediastinalsoft tissues [...] Content 5.7 L ABG Base Excess 2.8 / Assessment/Plan Assessment/Plan (1) Acute hypoxic respiratory failure: [...] care. Documented By: Mehul Garrett MD 4 0831 Signed By: <Electronically signed by MD Mehul Garrett> 08/08/23 5151 [facility] Work Phone: 1(358) 700-287903-15-2024 Progress note Author Vania Chacon [facility] August 08, 2023 10:42amNote Date/TimeMarch 2023 10:42[place] [address] Hospitalist Progress Note Signed Patient: Chelsea Diego JR MR#: [id number] : 1950 Acct:[id number] Age/Sex: 72 / M Adm Date: 4 Loc: Room: [address] [place] [address] Type: ADM IN Attending Dr: Vania Chacon [...] 07:43 Dextrose IV 08/04/24 10:14 0.7 mcg/kg/hr .[id number] [facility] 16.94 mls/hr Titration Protocol 0.2 MCG/KG/HR [...] signed by Vania Chacon MD> 08/08/23 1042 [facility] Work Phone: 1(695) 228-331703-14-2024 Progress note Author Mehul Garrett [facility] August 07, 2023 4:29pmNote Date/TimeMarch 2023 7:[address] [address] Pulmonology Progress Note Signed Patient: Chelsea Diego JR MR#: [id number] : 1950 Acct:[id number] Age/Sex: 72 / M Adm Date: 4 Loc: Room: [address] [place] [address] Type: ADM IN Attending Dr: Vania Chacon MD Copies to: ~ Date of Service: 08/07/2023 Subjective Subjective Narrative: Patient remains intubated and sedated on dexmedetomidine drip and Versed drip. Attempt at MRI todaywas unsuccessful but after discussion with radiology MRI [...] Content 5.8 L ABG Base Excess 1.9 /40/5 Assessment/Plan Assessment/Plan (1) Acute hypoxic respiratory [...] signed by MD Mehul Garrett> 08/07/23 1629 [facility] Work Phone: 1(132) 804-810503-14-2024 Progress note Author Pravin Rivers [facility] August 07, 2023 1:55pmNote Date/TimeMar2023 1:55pm[place] [address] Neurology Progress Note Signed Patient: Chelsea Diego JR MR#: [id number] : 1950 Acct:[id number] Age/Sex: 72 / M Adm Date: 4 Loc: Room: [address] [place] [address] Type: ADM IN Attending Dr: Vania Chacon [...] Oxygen Delivery Method Fraction of Inspired Oxygen 03/13/24 15:00 08/06/23 15:00 08/06/23 15:30 Temperature Pulse [...] can consider cerebrovascular disease or other intracranial le sions. Head CT was without any evidence of acute or concerning findings. Routine EEG looked normal. PLAN: 1. MRI brain without contrast if it can be obtained 3. Further recommendations to follow Plan: Plan Documented By: Pravin Rivers DO 08/07/23 1351 Signed By: <Electronically signed by Pravin Rivers DO> 08/07/23 1351 [facility] Work Phone: 1(123) 398-270303-14-2024 Progress note Author [facility] August 07, 2023 12:44pmNote Date/TimeMarch 2023 12:40pm[place] [address] Nephrology Progress Note Signed Patient: Chelsea Diego JR MR#: [id number] : 1950 Acct:[id number] Age/Sex: 72 / M Adm Date: 4 Loc: Room: [address] [place] [address] Type: ADM IN Attending Dr: Vania Chacon MD Copies to: ~ Date of Service: 08/07/2023 Subjective Subjective Narrative: Mr. Diego is a 72-year-old male with history of DM2, HTN, PAD and prostate cancer. Patient was recently started on hemodialysis during his admission in June 2023 for SONYA possibly related to ATN versus Staph aureus glomerulonephritis. Patient had left diabetic wound s/p tarsometatarsal amputa tion on 10/08. Creatinine has increased up to 5 mg/dL with no evidence of recovery. Patient was discharged to [facility]. Patient presented to [facility] from his nursing facility with severe shortness of breath requiring intubation. Chest x-ray showed bilateral pulmonary infiltrate with possible pulmonary edema. Subsequently the patient was transferred to [facility] and he continues to be on [...] the ICU patient tolerated hemodialysis session well yesterdaywith 4 L ultrafiltration. Patient is calm today [...] Ventilation 40 08/07/23 09:00 08/07/23 10:08/07/23 10:08/07/23 10:08/07/23 10:08/07/23 10:08/07/23 10:00 Narrative: General: Patient is calm. [...] (Dextrose) 100 mls @ 4.84 mls/hr IV .[id number] [facility]; Protocol Stop: 08/04/24 10:14 Last Admin: 08/07/23 09:17 Dose: 1.5 mcg/kg/hr, 36.3 mls/hr Midazolam HCl (Versed) 100 mg in 100 mls @ 1 mls/hr IV .Q24H [facility]; Protocol Stop: 02/01/24 22:59 Last Admin: 08/06/23 [...] 40 Mg Vial) 40 mg IV-PUSH DAILY [facility] Stop: 07/31/24 08:59 Last Admin: 08/07/23 09:46 [...] on the right maxillary sinus. Present portion ofa previously extracted tooth or sequelae of focal consolidation Impression dictated by: Nathan Lemus M.D.08/06/2023 2:38 PM Dictation Location: [place] [address] Chest X-Ray 08/07/23 05:00 IMPRESSION: CONTINUED PARENCHYMAL CHANGES, POSSIBLY MINIMALLY IMPROVED ON THE RIGHT. Impression dictated by: Pallavi Hernandez M.D.08/07/2023 6:45 AM Dictation Location: [place] [address] Any impression(s) listed above is documentation that was entered by the reading physician into a diagnostic report(s) for Chelsea Diego JR. I have reviewed the report(s) and am incorporating anyfindings in the treatment plan of this patient [...] He has anemia in the setting of SONAY with superimposed infection. Patient has elevated ferritin and low iron saturation in setting of infection. Plan * Last hemodialysis session was yesterday with 4 L ultrafiltration. * ANCA, and anti-GBM antibodies are negative. 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 Not sure about the clinical significant [...] renal panel to adjust medications and dialysis prescriptionas indicated. Documented By: Sanket Hammer MD 08/07/23 1237 Signed By: <Electronically signed by Sanket Hammer MD> 08/07/23 1244 [facility] Work Phone: 1(323) 853-938303-14-2024 Progress note Author Vania Chacon [facility] August 07, 2023 10:08amNote Date/TimeMarch 2023 10:08[place] [address] Hospitalist Progress Note Signed Patient: Chelsea Diego JR MR#: [id number] : 1950 Acct:[id number] Age/Sex: 72 / M Adm Date: 4 Loc: Room: [address] [place] [address] Type: ADM IN Attending Dr: Vania Chacon [...] 09:17 Dextrose IV 08/04/24 10:14 1.5 mcg/kg/hr .[id number] [facility] 36.3 mls/hr Administration Protocol 0.2 MCG/KG/HR [...] signed by Vania Chacon MD> 08/07/23 1008 [facility] Work Phone: 1(350) 838-356403-14-2024 Progress note Author Sanket Hammer [facility] August 07, 2023 9:25amNote Date/TimeMarch 2023 2:34[place] [address] Nephrology Progress Note Signed Patient: Chelsea Diego JR MR#: [id number] : 1950 Acct:[id number] Age/Sex: 72 / M Adm Date: 4 Loc: Room: [address] [place] [address] Type: ADM IN Attending Dr: Vania Chacon MD Copies to: ~ Date of Service: 08/06/2023 Subjective Subjective Narrative: Mr. Diego is a 72-year-old male with history of DM2, HTN, PAD and prostate cancer. Patient was recently started on hemodialysis during his admission in June 2023 for SONYA possibly related to ATN versus Staph aureus glomerulonephritis. Patient had left diabetic wound s/p tarsometatarsal amputa tion on 10/08. Creatinine has increased up to 5 mg/dL with no evidence of recovery. Patient was discharged to [facility] facility. Patient presented to [facility] from his nursing facility with severe shortness of breath requiring intubation. Chest x-ray showed bilateral pulmonary infiltrate with possible pulmonary edema. Subsequently the patient was transferred to [facility] and he continues to be on [...] BID KACI Stop: 07/31/24 08:59 Last Admin: 08/06/23 [...] 100 mls @ 2.5 mls/hr IV .Q24H [facility]; Protocol Last Admin: 08/06/23 06:29 Dose: Not Given Dexmedetomidine HCl 400 mcg/ (Dextrose) 100 mls @ 4.84 mls/hr IV .[id number] [facility]; Protocol Stop: 08/04/24 10:14 Last Admin: [...] Simmons Jr., D.O.08/06/2023 8:24 AM Dictation Location: [place] [address] Any impression(s) listed above is documentation that was entered by the reading physician into a diagnostic report(s) for Chelsea Diego JR. I have reviewed the report(s) and am incorporating anyfindings in the treatment plan of this patient [...] renal panel to adjust medications and dialysis prescriptionas indicated. Documented By: Sanket Hammer MD 08/06/23 1434 Signed By: <Electronically signed by Sanket Hammer MD> 08/07/23 3315 [facility] Work Phone: 1(846) 429-221503-13-2024 Progress note Author Mehul Garrett [facility] August 06, 2023 8:14pmNote Date/TimeMarch 2023 8:37[place] [address] Pulmonology Progress Note Signed Patient: Johnathon,Chelsea JR MR#: [id number] : 1950 Acct:[id number] Age/Sex: 72 / M Adm Date: 4 Loc: Room: [address] [place] [address] Type: ADM IN Attending Dr: Vania Chacon MD Copies to: ~ Date of Service: 08/06/2023 Subjective Subjective Narrative: Patient remains intubated and sedated though occasionally agitated despite Versed drip in addition to dexmedetomidine infusion. Case was discussed with brother and sister at bedside at the time of myvisit. Exam Physical Exam Vital Signs: Temp Pulse [...] 560 Output Total 50 / 157 15 15 Balance 670 / 1543 545 / [...] HISTORY: Ventilator care COMPARISON: Chest 08/05/2023 FINDINGS: Svja-yo-ywfytdsv unchanged positions. Heart and mediastinal structures appear [...] or sequelae of focal consolidation. The osseous struc tures in the skull base and the calvarium show no abnormality. CT/CT head/brain wo con IMPRESSION: No acute intracranial pathology. Mucosal thickening is noted in the ethmoid air cells, sphenoid sinuses, and frontal sinuses right greater than left. There is a hyperattenuating focus on the right maxillary sinus. Present portion ofa previously extracted tooth or sequelae of focal [...] for the patient's encephalopathy other than his criticalillness and his prior sedation. We will stay off propofol due to his hypertriglyceridemia and try and keep patient off fentanyl and utilize Versed drip and ultimately may transition to antipsychoticsas QT interval allows. Documented By: Mehul Garrett MD 4 0836 Signed By: <Electronically signed by MD Mehul Garrett> 08/06/232013 [facility] Work Phone: 1(767) 995-239903-13-2024 Consult note Author Pravin Rivers [facility] August 06, 2023 5:19pmNote Date/TimeMarch 2023 5:19[place] [address] Neurology Consult Note Signed Patient: Chelsea Diego JR MR#: [id number] : 1950 Acct:[id number] Age/Sex: 72 / M Adm Date: 4 Loc: Room: [address] [place] [address] Type: ADM IN Attending Dr: Vania Chacon MD Copies to: DO Vania Russell MD Marc Naderer, MD~ HPI Consult Date: 08/06/23 Sawmill Supervisor: Pravin Rivers DO [facility] Medical History (Updated 08/06/23 @ 17:09 by [...] [History Confirmed 08/01/23] flash glucose sensor (FreeStyle Armando 2 Sensor kit) 01/13/23 [History Confirmed 07/16/23] [...] mg) PO Q6HR PRN nausea with dialysis #10tabs 07/26/23 [Rx Confirmed 08/01/23] pantoprazole 40 mg [...] Pallavi Hernandez M.D.08/01/2023 7:14 AM Dictation Location: [facility]-12 Venous Duplex 08/01/23 08:05 IMPRESSION: NO EVIDENCE FOR DEEP VEIN THROMBOSIS OR PROXIMAL SUPERFICIAL THROMBOPHLEBITIS INTHE RIGHT OR LEFT LOWER EXTREMITY. Impression dictated by: Dhruv Bautista M.D.08/02/2023 9:26 AM Dictation Location: [facility]-04 Chest X-Ray 08/02/23 05:00 IMPRESSION: SLIGHT LIMITED STUDY. CONTINUED PARENCHYMAL CHANGES. Impression dictated by: Pallavi Hernandez M.D.08/02/2023 8:10 AM Dictation Location: [facility]--02 Chest X-Ray 08/03/23 05:00 IMPRESSION: CONTINUED BILATERAL PARENCHYMAL CHANGES. Impression dictated by: Pallavi Hernandez M.D.08/03/2023 8:05 AM Dictation Location: [facility]-02 Chest X-Ray 08/04/23 05:00 IMPRESSION: PERSISTENT BILATERAL PARENCHYMAL CHANGES Impression dictated by: Pallavi Hernandez M.D.08/04/2023 7:03 AM Dictation Location: [facility]--12 Chest X-Ray 08/05/23 05:00 IMPRESSION: CONTINUED BILATERAL PARENCHYMAL CHANGES. Impression dictated by: Pallavi Hernandez M.D.08/05/2023 7:17 AM Dictation Location: [place] [address] Chest X-Ray 08/06/23 05:00 IMPRESSION: NO SIGNIFICANT CHANGE IN CHEST FINDINGS. Impression dictated by: Georgi Simmons Jr., D.O.08/06/2023 8:24 AM Dictation Location: [place] [address] 08/06/23 09:22 IMPRESSION: No acute intracranial pathology. Mucosal thickening is noted in the ethmoid air cells, sphenoid sinuses, and frontal sinuses right greater than left. There is a hyperattenuating focus on the right maxillary sinus. Present portion ofa previously extracted tooth or sequelae of focal consolidation Impression dictated by: Nathan Lemus M.D.08/06/2023 2:38 PM Dictation Location: [place] [address] Assessment/Plan (1) Encephalopathy: Assessment/Problem Details: CONSULT REASON: Encephalopathy HPI: 72-year-old man with diabetes, end-stage renal disease, peripheral vascular disease. Who was transferred here from the [facility] in the mail opener hours of August 01, 2023. At the [facility] he had been intubated for respiratory issues. 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 Now has been found to have influenza A. Per nursing staff, as sedation is decreased he becomes incredibly uncomfortable to the point he nearly extubates himself despite restraints, gets tachypneic and tachycardic and just shakes his head zrnk-ldb-eddle sweg-jfs-vmktb. Does not seem to be following commands. EXAMINATION: Intubated and sedated. Breathes over the set ventilatory rate. Does not respond to voice. Does not follow commands. Turns head kvvw-lqh-ggldq repeatedly. Appears uncomfortable. Pupils small, equal, reactive. [...] can consider cerebrovascular disease or other intracranial le sions. The head CT from today does not show evidence of any acute process. PLAN: 1. Routine EEG 2. MRI brain without contrast 3. Further recommendations to follow Documented By: Pravin Rivers DO 08/06/231707 Signed By: <Electronically signed by Pravin Rivers DO> 08/06/231718 [facility] Work Phone: 1(314) 335-477903-13-2024 Progress note Author Vania Chacon [facility] August 06, 2023 10:00amNote Date/TimeMarch 2023 9:59[place] [address] Hospitalist Progress Note Signed Patient: Chelsea Diego JR MR#: [id number] : 1950 Acct:[id number] Age/Sex: 72 / M Adm Date: 4 Loc: Room: [address] [place] [address] Type: ADM IN Attending Dr: Vania Chacon [...] 07:43 Dextrose IV 08/04/24 10:14 1.5 mcg/kg/hr .[id number] [facility] 36.3 mls/hr Administration Protocol 0.2 MCG/KG/HR [...] signed by Vania Chacon MD> 08/06/23 1000 [facility] Work Phone: 1(853) 920-761003-12-2024 Progress note Author Mehul Garrett [facility] August 05, 2023 2:24pmNote Date/TimeMarch 2023 8:25[place] [id number] Pulmonology Progress Note Signed Patient: Chelsea Diego JR MR#: [id number] : 1950 Acct:[id number] Age/Sex: 72 / M Adm Date: 4 Loc: Room: [address] [place] [address] Type: ADM IN Attending Dr: Vania Chacon [...] and peripheral vasculardisease. Patient's sputum reveals only Candidadubliniensis with urine and blood cultures negative. Patient's gas exchange is improved though withchest x-ray essentially stable with bilateral infiltrates despite aggressive volume removal per nephrology. Sputum revealed only rare growth of Rajiv dubliniensis. Given its relatively rare growth,I believe this is a contaminantthat does not [...] signed by MD Mehul Garrett> 08/05/23 1424 [facility] Work Phone: 1(433) 638-424403-12-2024 Progress note Author Sanket Hammer [facility] August 05, 2023 1:55pmNote Date/TimeMar2023 1:55[place] [address] Nephrology Progress Note Signed Patient: Chelsea Diego JR MR#: [id number] : 1950 Acct:[id number] Age/Sex: 72 / M Adm Date: 4 Loc: Room: [address] [place] [address] Type: ADM IN Attending Dr: Vania Chacon MD Copies to: ~ Date of Service: 08/05/2023 Subjective Subjective Narrative: Mr. Diego is a 72-year-old male with history of DM2, HTN, PAD and prostate cancer. Patient was recently started on hemodialysis during his admission in June 2023 for SONYA possibly related to ATN versus Staph aureus glomerulonephritis. Patient had left diabetic wound s/p tarsometatarsal amputa tion on 10/08. Creatinine has increased up to 5 mg/dL with no evidence of recovery. Patient was discharged to [facility] facility. Patient presented to [facility] from his nursing facility with severe shortness of breath requiring intubation. Chest x-ray showed bilateral pulmonary infiltrate with possible pulmonary edema. Subsequently the patient was transferred to [facility] and he continues to be on [...] 100 mls @ 2.5 mls/hr IV .Q24H [facility]; Protocol Last Titration: 08/05/23 13:24 Dose: 25 mcg/hr, 2.5 mls/hr Dexmedetomidine HCl 400 mcg/ (Dextrose) 100 mls @ 4.84 mls/hr IV .[id number] [facility]; Protocol Stop: 08/04/24 10:14 Last Admin: 08/05/23 13:45 Dose: 1.4 mcg/kg/hr, 33.88 mls/hr Insulin Aspart (Insulin Aspart 300 Units/3 Ml Insuln.Pen) 0 units SUBCUT Q6HR [facility]; Protocol Stop: 07/31/24 11:59 Last Admin: 08/05/23 [...] 40 Mg Vial) 40 mg IV-PUSH DAILY [facility] Stop: 07/31/24 08:59 Last Admin: 08/05/23 08:52 Dose: 40 mg Sennosides (Sennosides Syrup 8.8 Mg/5 Ml Udc) 8.8 mg PO BID [facility] Stop: 08/03/24 08:59 Last Admin: 08/05/23 08:51 [...] Pallavi Hernandez M.D.08/05/2023 7:17 AM Dictation Location: [place] [address] Any impression(s) listed above is documentation that was entered by the reading physician into a diagnostic report(s) for Chelsea Diego JR. I have reviewed the report(s) and am incorporating anyfindings in the treatment plan of this patient [...] 130 mmol with 3.5 L ultrafiltration. Please keepoutput more than input/ * Hemoglobin has markedly [...] renal panel to adjust medications and dialysis prescriptionas indicated. Documented By: Sanket Hammer MD 08/05/23 1351 Signed By: <Electronically signed by Sanket Hammer MD> 08/05/23 1356 [facility] Work Phone: 1(356) 257-201703-12-2024 Progress note Author Vania Chacon [facility] August 05, 2023 11:03amNote Date/TimeMarch 2023 11:03[place] [address] Hospitalist Progress Note Signed Patient: Chelsea Diego JR MR#: [id number] : 1950 Acct:[id number] Age/Sex: 72 / M Adm Date: 4 Loc: Room: [address] [place] [address] Type: ADM IN Attending Dr: Vania Chacon [...] 10:51 Dextrose IV 08/04/24 10:14 1.2 mcg/kg/hr .[id number] [facility] 29.04 mls/hr Administration Protocol 0.2 MCG/KG/HR [...] <Electronically signed by Vania Chacon MD> 08/05/231102 [facility] Work Phone: 1(102) 611-146103-11-2024 Progress note Author Mehul Garrett [facility] August 04, 2023 1:09pmNote Date/TimeMarch 2023 8:45[place] [address] Pulmonology Progress Note Signed Patient: Chelsea Diego MR#: [id number] : 1950 Acct:[id number] Age/Sex: 72 / M Adm Date: 4 Loc: Room: [address] [place] [address] Type: ADM IN Attending Dr: Vania Chacon [...] and peripheral vasculardisease. Patient's sputum reveals only Candidadubliniensis with urine and blood cultures negative. We will discontinue vancomycin and continue radha openem. Case was discussed with nephrology who will [...] care. Documented By: Mehul Garrett MD 4 0551 Signed By: <Electronically signed by MD Mehul Garrett> 08/04/23 3264 [facility] Work Phone: 1(725) 592-170803-11-2024 Progress note Author Sanket Hammer [facility] August 04, 2023 12:09pmNote Date/TimeMarch 2023 12:08pm[place] [address] Nephrology Progress Note Signed Patient: Chelsea Diego JR MR#: [id number] : 1950 Acct:[id number] Age/Sex: 72 / M Adm Date: 4 Loc: Room: [address] [place] [address] Type: ADM IN Attending Dr: Vania Chacon MD Copies to: ~ Date of Service: 08/04/2023 Subjective Subjective Narrative: Mr. Diego is a 72-year-old male with history of DM2, HTN, PAD and prostate cancer. Patient was recently started on hemodialysis during his admission in June 2023 for SONYA possibly related to ATN versus Staph aureus glomerulonephritis. Patient had left diabetic wound s/p tarsometatarsal amputa tion on 10/08. Creatinine has increased up to 5 mg/dL with no evidence of recovery. Patient was discharged to [facility] facility. Patient presented to [facility] from his nursing facility with severe shortness of breath requiring intubation. Chest x-ray showed bilateral pulmonary infiltrate with possible pulmonary edema. Subsequently the patient was transferred to [facility] and he continues to be on [...] Puff/18 Gm Inhaler) 6 puff VENT Q6HR [facility] Stop: 07/31/24 11:59 Last Admin: 08/04/23 05:35 [...] 5,000 Unit/Ml Vial) 5,000 unit SUBCUT Q8HR [facility] Stop: 08/01/24 13:59 Last Admin: 08/04/23 06:22 Dose: 5,000 unit Propofol (Diprivan) 1,000 mg in 100 mls @ 12.492 mls/hr IV .Q8H1M [facility]; Protocol Stop: 07/31/24 08:14 Last Admin: 08/04/23 11:13 Dose: 50 mcg/kg/min, 31.23 mls/hr Sodium Chloride (0.9% Sodium Chloride 1,000 Ml) 1,000 mls @ 0 mls/hr MISCELLANE.Q0M PRN PRN Reason: Dialysis Stop: 07/31/24 10:31 Last Infusion: 08/01/23 15:59 Dose: Infused Meropenem (Merrem) 0.5 gm in 100 mls @ 33.3 mls/hr IV Q24H [facility] Stop: 08/07/23 17:01 Last Admin: 08/03/23 14:58 Dose: 33.3 mls/hr Sodium Chloride (0.9% Sodium Chloride 1,000 Ml) 1,000 mls @ 0 mls/hr MISCELLANE.Q0M PRN PRN Reason: Dialysis Stop: 08/01/24 09:40 Last Infusion: 08/02/23 23:01 Dose: Infused Fentanyl (Fentanyl 1,000 Mcg/100 Ml D5w) 1,000 mcg in 100 mls @ 2.5 mls/hr IV .Q24H [facility]; Protocol Last Titration: 08/04/23 10:19 Dose: 100 mcg/hr, 10 mls/hr Insulin Aspart (Insulin Aspart 300 Units/3 Ml Insuln.Pen) 0 units SUBCUT Q6HR [facility]; Protocol Stop: 07/31/24 11:59 Last Admin: 08/04/23 11:59 Dose: Not Given Magnesium Hydroxide (Magnesium Hydroxide Susp 30 Ml Udc) 30 ml PO DAILY PRN PRN Reason: Constipation Stop: 08/02/24 22:13 Pantoprazole Sodium (Pantoprazole 40 Mg Vial) 40 mg IV-PUSH DAILY [facility] Stop: 07/31/24 08:59 Last Admin: 08/04/23 08:46 [...] Pallavi Hernandez M.D.08/04/2023 7:03 AM Dictation Location: [place] [address] Any impression(s) listed above is documentation that was entered by the reading physician into a diagnostic report(s) for Chelsea Diego JR. I have reviewed the report(s) and am incorporating anyfindings in the treatment plan of this patient [...] renal panel to adjust medications and dialysis prescriptionas indicated. Documented By: Sanket Hammer MD 08/04/23 1205 Signed By: <Electronically signed by Sanket Hammer MD> 08/04/23 1209 [facility] Work Phone: 1(537) 354-926903-11-2024 Progress note Author Vania Chacon [facility] August 04, 2023 10:34amNote Date/TimeMarch 2023 10:26[place] [address] Hospitalist Progress Note Signed Patient: Chelsea Diego JR MR#: [id number] : 1950 Acct:[id number] Age/Sex: 72 / M Adm Date: 4 Loc: Room: [address] [place] [address] Type: ADM IN Attending Dr: Vania Chacon [...] signed by Vania Chacon MD> 08/04/23 1034 [facility] Work Phone: 1(303) 820-781503-10-2024 Progress note Author Eulogio Ruvalcaba [facility] August 03, 2023 1:32pmNote Date/TimeMarch 2023 1:32[place] [id number] Hospitalist Progress Note Signed Patient: Chelsea Diego JR MR#: [id number] : 1950 Acct:[id number] Age/Sex: 72 / M Adm Date: 4 Loc: Room: [address] [place] [address] Type: ADM IN Attending Dr: Eulogio Ruvalcaba MD Copies to: ~ Date of Service: 08/03/2023 Subjective Subjective Narrative: Patient was seen at bedside. He remained intubated and sedated. Had a discussion with the platform inspector at bedside. He did not do well with a spontaneous breathingtrial. Patient had ultrafiltration yesterday. Tomorrow he may have some dialysis. Hisurine output is very low. Multiple consultants are on board. ON ADMISSION: This is a 72-year-old male who presented to the emergency room at the [facility] in the overnight or mail opener hours. Reports right now are uncertain but [...] is he got broad-spectrum antibiotics with vancomycin andmeropenem and then his antibiotics were refined to [...] stay of an uncertain etiology. He did ap pear to have some return of renal function with making adequate urine output, but was uncertain if he would ever have a good enough return of renal function to get off hemodialysis. He was finally discharged to a fpc facility in the [place] area to continue hemodialysis and antibioticsand have physical rehabilitation. On looking at the [...] in his eyes as a result of theeffects of diabetes. I did pointout that his hemoglobin A1c was 8.1 and they admit that this is a pretty good hemoglobin A1c for him. It seems that at the fpc facility he was not making progress. They describe him being very fatigued from the dialysis. He would often not eat on the dialysis days and they are trying to change the timing of his meals. They said that on Friday he toldthem that he felt great. But then Friday night he began having dyspnea which was new and sudden p roblem for him. By he had to be [...] a VQ scan to be able to evaluatehim for that problem. His family members do [...] ICU; vented and sedated Appreciate consult from meat press operator, platform inspector Patient failed a spontaneous breathing trial. He needs to be on vent, as the sedation was withdrawal he was tachycardic and respiratory rate was high Patient will have hemodialysis possibly tomorrow. Appreciate consult from building insulation installer. Prognosis guarded. Sputum culture. Bio fire nasal PCR test. Propofol for gentle sedation. Sliding scale level 2 for glycemic control. Check fingerstick blood glucoses every 6 hours, or more frequently if he becomeshypoglycemic. Check CBC, BMP, portable chest x-ray, ABG, and EKG daily while on the ventilator. Documented By: Eulogio Ruvalcaba MD 08/03/231329 Signed By: <Electronically signed by Eulogio Ruvalcaba MD> 08/03/23 1332 [facility] Work Phone: 1(774) [phone] Progress note Author Elder Varner [facility] August 03, 2023 1:12pmNote Date/TimeMar2023 1:12pm[place] [address] Pulmonology Progress Note Signed Patient: Chelsea Diego JR MR#: [id number] : 1950 Acct:[id number] Age/Sex: 72 / M Adm Date: 4 Loc: Room: [address] [place] [address] Type: ADM IN Attending Dr: Eulogio Ruvalcaba [...] his prior imaging. There appears to be slightworsening in the right basilar infiltrate/effusion when compared [...] signed by Elder Varner MD> 08/03/23 1312 [facility] Work Phone: 1(620) 411-937803-10-2024 Progress note Author Sury Winkler [facility] August 03, 2023 12:56pmNote Date/TimeMar2023 12:52pm[place] [address] Nephrology Progress Note Signed Patient: Chelsea Diego JR MR#: [id number] : 1950 Acct:[id number] Age/Sex: 72 / M Adm Date: 4 Loc: Room: [address] [place] [address] Type: ADM IN Attending Dr: Eulogio Ruvalcaba MD Copies to: ~ Date of Service: 08/03/2023 Subjective Subjective Narrative: Mr. Diego is a 72-year-old male with history of DM2, HTN, PAD and prostate cancer. Patient was recently started on hemodialysis during his admission in June 2023 for SONYA possibly related to ATN versus Staph aureus glomerulonephritis. Patient had left diabetic wound s/p tarsometatarsal amputa tion on 10/08. Creatinine has increased up to 5 mg/dL with no evidence of recovery. Patient was discharged to [facility] facility. Patient presented to [facility] [facility] from his nursing facility with severe shortness of breath requiring intubation. Chest x-ray showed bilateral pulmonary infiltrate with possible pulmonary edema. Subsequently the patient was transferred to [facility] and he continues to be on [...] Ml Udc) 15 ml MUCOUS MEM BID [facility] Stop: 07/31/24 08:59 Last Admin: 08/03/23 10:13 [...] Mg/10 Ml Vial) 100 mg IV-PUSH BID [facility] Stop: 08/03/23 21:01 Glucose (Dextrose 40% Gel [...] 5,000 Unit/Ml Vial) 5,000 unit SUBCUT Q8HR [facility] Stop: 08/01/24 13:59 Last Admin: 08/03/23 06:21 Dose: 5,000 unit Propofol (Diprivan) 1,000 mg in 100 mls @ 12.492 mls/hr IV .Q8H1M [facility]; Protocol Stop: 07/31/24 08:14 Last Admin: 08/03/23 [...] Units/3 Ml Insuln.Pen) 0 units SUBCUT Q6HR [facility]; Protocol Stop: 07/31/24 11:59 Last Admin: 08/03/23 [...] Pallavi Hernandez M.D.08/03/2023 8:05 AM Dictation Location: [place] [address] Any impression(s) listed above is documentation that was entered by the reading physician into a diagnostic report(s) for Chelsea Diego JR. I have reviewed the report(s) and am incorporating anyfindings in the treatment plan of this patient [...] IV iron and erythropoietin with dialysis once infectionresolves. * All medications were reviewed. Patient is currently on meropenem and vancomycin. Blood culture showed no growth x 2 days. Sputum endotracheal culture showed Rajiv * Will monitor daily intake, output and renal panel to adjust medications and dialysis prescriptionas indicated. Documented By: Sury Winkler MD 08/03/231251 Signed By: <Electronically signed by MD Sury Winkler> 08/03/23 1257 [facility] Work Phone: 1(193) 576-419603-09-2024 Progress note Author Elder Varner [facility] August 02, 2023 2:23pmNote Date/TimeMarch 2023 2:23pm[place] [address] Pulmonology Progress Note Signed Patient: Chelsea Diego JR MR#: [id number] : 1950 Acct:[id number] Age/Sex: 72 / M Adm Date: 4 Loc: Room: [address] [place] [address] Type: ADM IN Attending Dr: Eulogio Ruvalcaba [...] <Electronically signed by Elder Varner MD> 08/02/23 1423 [facility] Work Phone: 1(466) 611-511603-09-2024 Progress note Author Sury Winkler [facility] August 02, 2023 12:58pmNote Date/TimeMarch 2023 12:54pm[place] [address] Nephrology Progress Note Signed Patient: Chelsea Diego JR MR#: [id number] : 1950 Acct:[id number] Age/Sex: 72 / M Adm Date: 4 Loc: Room: [address] [place] [address] Type: ADM IN Attending Dr: Eulogio Ruvalcaba MD Copies to: ~ Date of Service: 08/02/2023 Subjective Subjective Narrative: Mr. Diego is a 72-year-old male with history of DM2, HTN, PAD and prostate cancer. Patient was recently started on hemodialysis during his admission in June 2023 for SONYA possibly related to ATN versus Staph aureus glomerulonephritis. Patient had left diabetic wound s/p tarsometatarsal amputa tion on 10/08. Creatinine has increased up to 5 mg/dL with no evidence of recovery. Patient was discharged to [facility] facility. Patient presented to [place] [facility] from his nursing facility with severe shortness of breath requiring intubation. Chest x-ray showed bilateral pulmonary infiltrate with possible pulmonary edema. Subsequently the patient was transferred to [facility] and he continues to be on [...] 5,000 Unit/Ml Vial) 5,000 unit SUBCUT Q8HR [facility] Stop: 08/01/24 13:59 Propofol (Diprivan) 1,000 mg [...] 100 mls @ 33.3 mls/hr IV Q24H [facility] Last Admin: 08/01/23 17:57 Dose: 33.3 mls/hr [...] Turbid A Urine pH 5.0 Ur Specific [place] 1.027 Urine Protein 300 H Urine Glucose [...] Dhruv Bautista M.D.08/02/2023 9:26 AM Dictation Location: [place] [address] Chest X-Ray 08/02/23 05:00 IMPRESSION: SLIGHT LIMITED STUDY. CONTINUED PARENCHYMAL CHANGES. Impression dictated by: Pallavi Hernandez M.D.08/02/2023 8:10 AM Dictation Location: [place] [address] Any impression(s) listed above is documentation that was entered by the reading physician into a diagnostic report(s) for Chelsea Diego JR. I have reviewed the report(s) and am incorporating anyfindings in the treatment plan of this patient [...] 3 hours, 3 L fluid removal. Order inthe chart. * Hemoglobin has markedly improved after transfusion and ultrafiltration up to 9.7 g/dL. Patient already had 2 units of packed RBCs. Will start IV iron and erythropoietin with dialysis once infectionresolves. * All medications were reviewed. Patient is currently on meropenem and vancomycin pending the result of blood culture and sputum culture. Dose is being managed by the pharmacy. * Will monitor daily intake, output and renal panel to adjust medications and dialysis prescriptionas indicated. Documented By: Sury Winkler MD 08/02/23 1254 Signed By: <Electronically signed by MD Sury Winkler> 08/02/23 1258 [facility] Work Phone: 1(282) 507-815503-09-2024 Progress note Author Eulogio Ruvalcaba [facility] August 02, 2023 11:24amNote Date/TimeMarch 2023 11:24[place] [address] Hospitalist Progress Note Signed Patient: Chelsea Diego JR MR#: [id number] : 1950 Acct:[id number] Age/Sex: 72 / M Adm Date: 4 Loc: Room: [address] [place] [address] Type: ADM IN Attending Dr: Eulogio Ruvalcaba MD Copies to: ~ Date of Service: 08/02/2023 Subjective Subjective Narrative: Patient was seen at bedside. He is intubated and sedated. He will have his hemodialysis today. Then he may go for spontaneous breathing trial. Multiple consultants are on board. ON ADMISSION: This is a 72-year-old male who presented to the emergency room at the [facility] in the overnight or mail opener hours. Reports right now are uncertain but [...] is he got broad-spectrum antibiotics with vancomycin andmeropenem and then his antibiotics were refined to [...] stay of an uncertain etiology. He did ap pear to have some return of renal function with making adequate urine output, but was uncertain if he would ever have a good enough return of renal function to get off hemodialysis. He was finally discharged to a fpc facility in the [facility] to continue hemodialysis and antibioticsand have physical rehabilitation. On looking at the [...] in his eyes as a result of theeffects of diabetes. I did pointout that his hemoglobin A1c was 8.1 and they admit that this is a pretty good hemoglobin A1c for him. It seems that at the fpc facility he was not making progress. They describe him being very fatigued from the dialysis. He would often not eat on the dialysis days and they are trying to change the timing of his meals. They said that on Friday he toldthem that he felt great. But then Friday night he began having dyspnea which was new and sudden p roblem for him. By he had to be [...] a VQ scan to be able to evaluatehim for that problem. His family members do [...] ICU; vented and sedated Appreciate consult from meat press operator, platform inspector Patient will have hemodialysis this afternoon. Appreciate consult from building insulation installer. Sputum culture. Bio fire nasal PCR test. Propofol for gentle sedation. Sliding scale level 2 for glycemic control. Check fingerstick blood glucoses every 6 hours, or more frequently if he becomeshypoglycemic. Check CBC, BMP, portable chest x-ray, ABG, and EKG daily while on the ventilator. Documented By: Eulogio Ruvalcaba MD 08/02/23 1120 Signed By: <Electronically signed by Eulogio Ruvalcaba MD> 08/02/23 1124 [facility] Work Phone: 1(359) 593-673503-08-2024 Consult note Author Sury Winkler [facility] August 01, 2023 5:45pmNote Date/TimeMarch 2023 5:[place] [id number] Nephrology Consult Note Signed Patient: Chelsea Diego JR MR#: [id number] : 1950 Acct:[id number] Age/Sex: 72 / M Adm Date: 4 Loc: Room: [address] [place] [address] Type: ADM IN Attending Dr: Geo Thomas DO Copies to: MD Geo Moulton DO Marc Naderer, MD~ Providers Consult Date: 08/01/23 Requesting Provider: Geo Thomas DO Primary Care Provider: Tejas Stevens MD [facility] Reason for Consult: Management of SONYA and dialysis during hospital stay History of Present Illness: Mr. Diego is a 72-year-old male with history of DM2, HTN, PAD and prostate cancer. Patient was recently started on hemodialysis during his admission in June 2023 for SONYA possibly related to ATN versus Staph aureus glomerulonephritis. Patient had left diabetic wound s/p tarsometatarsal amputa tion on 10/08. Creatinine has increased up to 5 mg/dL with no evidence of recovery. Patient was discharged to fpc facility. Patient presented to [place] ER from his nursing facility with severe shortness of breath requiring intubation. Chest x-ray showed bilateral pulmonary infiltrate with possible pulmonary edema. Subsequently the patient was transferred to [facility] and he continues to be on [...] [History Confirmed 08/01/23] flash glucose sensor (FreeStyle Armando 2 Sensor kit) 01/13/23 [History Confirmed 07/16/23] [...] mg) PO Q6HR PRN nausea with dialysis #10tabs 07/26/23 [Rx Confirmed 08/01/23] pantoprazole 40 mg [...] Pallavi Hernandez M.D.08/01/2023 7:14 AM Dictation Location: [place] [address] Any impression(s) listed above is documentation that was entered by the reading physician into a diagnostic report(s) for Chelsea Diego JR. I have reviewed the report(s) and am incorporating anyfindings in the treatment plan of this patient [...] renal panel to adjust medications and dialysis prescriptionas indicated. I appreciate this consultation we will be happy to follow the patient with you during hospital stay. Documented By: Sury Winkler MD 08/01/23 1208 Signed By: <Electronically signed by MD Sury Winkler> 08/01/23 1745 [facility] Work Phone: 1(530) 217-367003-08-2024 Consult note Author Mehul Garrett [facility] August 01, 2023 3:55pmNote Date/TimeMar2023 10:37[place] [address] Pulmonology Consult Note Signed Patient: Chelsea Diego JR MR#: [id number] : 1950 Acct:[id number] Age/Sex: 72 / M Adm Date: 4 Loc: Room: [address] [place] [address] Type: ADM IN Attending Dr: Geo Thomas [...] He was admitted today from SNF who reportedlynoted fatigueand SOB beginning Friday, eventually needing supplemental oxygen. He is not on oxygen at baseline. Required intubation at [facility] before transfer. Found to be positive for [...] Hypertension Mother Diabetes [facility]: Diagnosed with Stroke Stroke Brother Cancer [...] [History Confirmed 08/01/23] flash glucose sensor (FreeStyle Armando 2 Sensor kit) 01/13/23 [History Confirmed 07/16/23] [...] mg) PO Q6HR PRN nausea with dialysis #10tabs 07/26/23 [Rx Confirmed 08/01/23] pantoprazole 40 mg [...] Service: 08/01/23 XR/XR chest 1V portable: intubation ([id number]) XR/XR abdomen 1V: OG PLACEMENT CLINICAL DATA: [...] contours are similar. There is potential dextroscoliotic curvatureas well as endplate spurring at the spine. [...] to SNF for rehabilitation, antibiotics, and HD. Re- admitted 07/31 for acute hypoxic respiratoryfailure requiring intubation, significant anemia at Hgb 6.7. Influenza A positive, and CXR with bilateral infiltrates possibly consistent with fluid overload or superimposed pneumonia. Plan: -Remain intubated at sedated today -Agree with hospitalist plan; Echo pending, sputum cultures pending, Doppler US pending for outsideconcern for blood clots, transfuse PRBC, daily CXR [...] without rhonchi nor wheeze. Cardiovascular exam was reg ular withoutobvious murmur.abdomen is soft but nontender. Extremities [...] <Electronically signed by MD Mehul Garrett> 08/01/23 1555 [facility] Work Phone: 1(937) 613-337603-08-2024 Consult note Author Chip Bravo [facility] August 01, 2023 10:47amNote Date/TimeMarch 2023 10:47am[place] [id number] Cardiology Consult Note Signed Patient: Chelsea Diego JR MR#: [id number] : 1950 Acct:[id number] Age/Sex: 72 / M Adm Date: 4 Loc: 4C Room: 8X9982-1 Type: ADM IN Attending Dr: Geo Thomas [...] hada prolonged hospital stay here [facility] which was complicated by some manner of sepsis. Patient was recently discharged to a fpc facility in [place]. Apparently the patient had been doing clinically well until Friday when he began to complain of increasing shortness of breath. By last evening the dyspnea was severe enough that it prompted his caregivers at the [facility] to send [facility]to [place] for evaluation. In the [place] ER the patient was found to be [...] in renal failure with a estimated GFR lessthan 10 mL/min and a creatinine on today's laboratories of 3.74. Initial troponin was elevated at 1210 and second troponin further elevated at 1725. Stat echocardiogram this morning showed normal resting left ventricular regional wall motion and systolic function. Ejection fraction is meacspmwozaxd42 to 60%. There is evidence of grade [...] [History Confirmed 08/01/23] flash glucose sensor (FreeStyle Armando 2 Sensor kit) 01/13/23 [History Confirmed 07/16/23] [...] mg) PO Q6HR PRN nausea with dialysis #10tabs 07/26/23 [Rx Confirmed 08/01/23] pantoprazole 40 mg [...] 20 MCG/KG/MIN 12.492 mls/hr IV .Q8H1M KACI Rx#:[id number] Other: Total Intake (Blood Product) Cumulative Amt Leukocyte Reduced Rbc Unit 0 [id number] Weight 104.1 kg Patient Weight 08/01/23 23:59 [...] <Electronically signed by Chip Bravo MD> 08/01/23 1047 [facility] Work Phone: 1(920) 608-359703-08-2024 History and physical note Author Geo Thomas [facility] August 01, 2023 8:39amNote Date/TimeMar2023 8:27[place] [id number] Hospitalist H&P Signed Patient: Chelsea Diego JR MR#: [id number] : 1950 Acct:[id number] Age/Sex: 72 / M Adm Date: 4 Loc: Room: [address] [place] [address] Type: ADM IN Attending Dr: Geo Thomas DO Copies to: DO Tejas Claudio MD~ HPI DATE OF EXAMINATION: 08/01/23 CHIEF COMPLAINT: Acute dyspnea HISTORY OF PRESENT ILLNESS: This is a 72-year-old male who presented to the emergency room at the [facility] in the overnight or mail opener hours. Reports right now are uncertain but [...] is he got broad-spectrum antibiotics with vancomycin andmeropenem and then his antibiotics were refined to [...] stay of an uncertain etiology. He did ap pear to have some return of renal function with making adequate urine output, but was uncertain if he would ever have a good enough return of renal function to get off hemodialysis. He was finally discharged to a fpc facility in the [facility] to continue hemodialysis and antibioticsand have physical rehabilitation. On looking at the [...] in his eyes as a result of theeffects of diabetes. I did pointout that his hemoglobin A1c was 8.1 and they admit that this is a pretty good hemoglobin A1c for him. It seems that at the fpc facility he was not making progress. They describe him being very fatigued from the dialysis. He would often not eat on the dialysis days and they are trying to change the timing of his meals. They said that on Friday he toldthem that he felt great. But then Friday night he began having dyspnea which was new and sudden p roblem for him. By he had to be [...] a VQ scan to be able to evaluatehim for that problem. His family members do [...] is intubated and sedated on the ventilator. [facility] Medical History (Updated 08/01/23 @ 08:21 by [...] [History Confirmed 08/01/23] flash glucose sensor (FreeStyle Armando 2 Sensor kit) 01/13/23 [History Confirmed 07/16/23] [...] mg) PO Q6HR PRN nausea with dialysis #10tabs 07/26/23 [Rx Confirmed 08/01/23] pantoprazole 40 mg [...] setting as: INPATIENT because of an expectation ofan over 2 midnight stay. Estimated length of stay (# of days): 10 Documented By: Geo Thomas DO 0812 Signed By: <Electronically signed by Geo Thomas DO> 08/01/23 0839 [facility] Work Phone: 1(781) 643-427002-15-2024 History and physical note Author Arnaldo Thomas [facility] July 11, 2023 7:10amNote Date/TimeFebruary 2023 9:02pmC[place] [address] Hospitalist H&P Signed Patient: Chelsea Diego JR MR#: [id number] : 1950 Acct:[id number] Age/Sex: 72 / M Adm Date: 4 Loc: Room: [address] [place] [address] Type: ADM IN Attending Dr: Arnaldo Thomas MD Copies to: MD Arnaldo Alicea MD Paula G Smith, CHOIR MEMBER~ HPI DATE OF EXAMINATION: 07/10/23 CHIEF COMPLAINT: foot wound HISTORY OF PRESENT ILLNESS: Mr. Diego is a 72-year-old male with a PMH of T2DM, PVD, PAD, HTN, HLD, angioplasty to LLE the presents to the emergency room tonight for complaints of increased pain, redness and swelling to left foot. Patient states last he went to see his medical illustrator and they did small skin grafts to [...] Patient received vancomycin, saline boluses, morphine, Zofran. Healiciall be admitted to the [facility] telemetry floor under the care of the hospitalist team. Review of Systems Review of Systems Review of systems: A 10 point review of systems was obtained, negative unless noted in the HPI or below. [facility] Medical History (Updated 07/10/23 @ 22:09 by [...] Occupational Status: retired Recent travel in the [facility] w/in past 28 days: No Meds Medications [...] [History Confirmed 07/10/23] flash glucose sensor (FreeStyle Armando 2 Sensor kit) 01/13/23 [History Confirmed 02/23/23] [...] eschar noted, no drainage noted, redness and swellingto dorsalsurface of left foot MS- MAEX4 spontaneously, [...] 07/10/23 19:09 MCHC 33.6 g/dL (32.5-35.6) 07/10/23 19: RDW 13.7 % (12.0-14.8) 07/10/23 19:09 Plt Count 502 x10E3/uL (150-450) H 07/10/23 19:09 MPV 7.7 fl (6.6-10.1) 07/10/23 19: Neut % (Auto) 84.7 % (.) 07/10/23 19: Lymph % (Auto) 6.5 % (.) 07/10/23 19: [place] % (Auto) 8.4 % (.) 07/10/23 19: Eos % (Auto) 0.3 % (.) 07/10/23 19: Baso % (Auto) 0.1 % (.) 07/10/23 19:09 Nucleat RBC Rel Count 0.0 /100 WBC (0-0.5) 07/10/23 19:09 Neut # (Auto) 27.7 x10E3/uL (1.8-7.7) H 07/10/23 19:09 Lymph # (Auto) 2.1 x10E3/uL (1.00-4.8) 07/10/23 19:09 [place] # (Auto) 2.7 x10E3/uL (0.0-0.8) H 07/10/23 [...] setting as: INPATIENT because of an expectation ofan over 2 midnight stay. Estimated length of [...] <Electronically signed by Arnaldo Thomas MD> 07/11/23 3679 [facility] Work Phone: 1(486) 896-516402-15-2024 History of Present illness Narrative* Rohan Han DPM - 07/10/2023 4:00 PM EST Patient: [place] Jr : 1950 PCP: Tejas Stevens MD [...] History: Past Medical History: Diagnosis Date Alcoholism ([facility]) Arthritis Broken ankle, right Broken collarbone Broken neck ([facility]) Bunion Cataract Compression fracture of C-spine ([facility]) 2010 T10-T12 DDD (degenerative disc disease), cervical DDD (degenerative disc disease), lumbar Depression ([facility]) Diabetic ulcer of left midfoot associated with type 2 diabetes mellitus, limited to breakdown of skin ([facility]) DM (diabetes mellitus) ([facility]) Elevated PSA Foot ulcer ([facility]) GERD (gastroesophageal reflux disease) History of elevated prostate specific antigen (PSA) History of medical problems 2010 degenrative change mid/lower thoracic spine Hx of shoulder surgery 2004 Hypertension ([facility]) Lumbar spondylolysis Neuropathy in diabetes ([facility]) Ocular palsy of right eye Osteomyelitis of left foot, unspecified type ([facility]) Prostate cancer ([facility]) PSA elevation Pulmonary arterial hypertension ([facility]) Substance abuse ([facility]) Type 2 diabetes mellitus with diabetic polyneuropathy, with long-term current use of insulin ([facility]) Vitamin D deficiency Weak urinary stream Medications: [...] left foot and right foot Neuro: 5.07 [place] Radha monofilament test diminished to digits and [...] ulcer, left, with necrosis of muscle (HCC) ([facility]) PLAN Discussed with patient present today of possible treatments including oral antibiotics howeverdid discuss with patient most likely be beneficial to report to ER for lab workup as well as possible CT scan or IV antibiotics. Patient may need to be admitted and will discuss with local hospital far as possible admission if warranted documented in this encounterSaint John's Breech [facility] Medical [id number] History of Present illness Narrative* Rohan Han DPM - 06/26/2023 4:10 PM EST Patient: [place] Jr : 1950 PCP: Tejas Stevens MD [...] History: Past Medical History: Diagnosis Date Alcoholism ([facility]) Arthritis Broken ankle, right Broken collarbone Broken neck ([facility]) Bunion Cataract Compression fracture of C-spine ([facility]) 2010 T10-T12 DDD (degenerative disc disease), cervical [...] spine Hx of shoulder surgery 2003 Hypertension (CMS/HCC) Lumbar spondylolysis Neuropathy in diabetes ([facility]) Ocular palsy of right eye Osteomyelitis of left foot, unspecified type (CMS/HCC) Prostate cancer (CMS/HCC) PSA elevation Pulmonary arterial hypertension (CMS/HCC) Substance abuse ([facility]) Type 2 diabetes mellitus with diabetic polyneuropathy, with long-term current use of insulin ([facility]) Vitamin D deficiency Weak urinary stream Medications: [...] left foot and right foot Neuro: 5.07 [place] Radha monofilament test diminished to digits and [...] risks, alternatives, benefits, post op complications and jail expectations were discussed including but not limited to: infection,bone infection,wound dehiscence hardware failure and irritation,wound dehiscence,delay union/mal union/non union of bone. RSDS,neuroma,duty limitations,DVT/PE, PR,nerve damage, scar, loss of sensation, swelling. Pt [...] Han DPM documented in this encounterSaint John's Breech [facility] Medical [id number] Evaluation note* Encounter Date Diagnosis Assessment Notes Treatment Notes Treatment Clinical Notes Jun, Type 2 diabetes mellitus with hy perglycemia (ICD-10 - E11.65) Managing type 2 diabetes material was published 1. Uncontrolled, Type 2 diabetes with A1C of 7.7%. 2. Blood glucose levels above target. According to armando cgm download 06/13/23- 06/26/23; Avg glucose 153. >250-1%, >180-23%, 70-180-76%, <70-0%, <54-0%. GMI 7%. Reviewed download with pt. Glucose above target postprandial from higher carb load, underestimation of insulin for meal. Reviewedwith pt how to tirate basal/bolus insulin according to fasting am/ meal to meal glucose pattern. Pt verbalizes understanding. 3. Patient is alert, oriented and receptive to making changes or counseling. Notes: Seen for an assessment of current glucose pattern, changes in treatment plan, with this timespent in counseling and coordination of care related to diabetes, risks, and benefits of treatment,medications, and side effects. TOPICS REVIEWED: 1. Time was spent reviewing: a. Basic concepts of diabetes, progressive beta cell , concepts of basal/bolus/corrective insulin requirements. Basal: The goal is fasting [...] or sores that do not appear to behealing. 4. Meter: Plan to check blood glucose: [...] hyperglycemia, or diabetes medication issues. 6. Prescriptions: Rapidlea PAP-Basaglar/Humalog/Trulicity. Drug [facility]. DME: [facility]. 7. Prescriptions will not be filled unless you are compliant with follow up appointments or have a follow up appointment scheduled as ordered by your provider. Refills should be requested at the timeof your visit. 8. Labs ordered, encouraged to have labs done. Jun,ietary counseling and surveillance (ICD-10 - Z71.3)Heart healthy diet material was published Jun,HTN (hypertension) (ICD-10 - I10)Managing high blood pressure material was published Jun,Long term current use of insulin (ICD-10 - Z79.4) Jun,Hypoglycemia associated with type 2 diabetes mellitus (ICD-10 - E11.649)Diabetes and foot care material was published see above Jun,Mixed hyperlipidemia (ICD-10 - E78.2)Cholesterol-lowering diet material was published 02/2022 ldl 27, trig. 269 on statin Jun,MI 30.0-30.9,adult (ICD-10 - Z68.30) Jun,Ulcer of left foot, unspecified ulcer stage (ICD-10 - L97.529) keep f/u with Dr. Han [employer] Other 01-25-2024 Miscellaneous Notes* Telephone Encounter - SHALOM Vincent - 06/19/2023 12:06 PM EST Please remind him to go to the lab to get his six-month PSA checked. Thank you * Telephone Encounter - Akilah Robertson LPN - 06/19/2023 12:06 PM EST Spoke with patient and advised to go to [facility] lab for PSA * Telephone Encounter - SHALOM Vincent - 06/19/2023 12:06 PM EST It does not appear he had it done. Would you please send him a letter asking him to go to the lab to get his 6 month PSA checked? Thank you * Telephone Encounter - Kimberli Valero LPN - 06/19/2023 12:06 PM EST Spoke to patient he is in a facility after having his toes amputated so is unable to get out to have lab work done Would you like me to send a order to the facility pauilna rodriguez * Telephone Encounter - SHALOM Vincent - 06/19/2023 12:06 PM EST Yes please. Thank you. The order is in the chart from November 2022. Would you please watch for the results? * Telephone Encounter - Kimberli Valero LPN - 06/19/2023 12:06 PM EST Orders faxed to facility will call results at end of the week * Telephone Encounter - Kimberli Valero LPN - 06/19/2023 12:06 PM EST Patient has been admitted to the hospital and unable to have PSA done * Telephone Encounter - SHALOM Vincent - 06/19/2023 12:06 PM EST He still has not had it done but has a follow-up scheduled 12/16. Will address at that time documented in this encounterMadison Health01-25-2024 Telephone encounter Note* Telephone Encounter - SHALOM Vincent - 06/19/2023 12:06 PM EST Please remind him to go to the lab to get his six-month PSA checked. Thank you [employer]01-25-2024 Telephone encounter Note* Telephone Encounter - Akilah Robertson LPN - 06/19/2023 12:06 PM EST Spoke with patient and advised to go to [facility] lab for PSA [employer]01-25-2024 Telephone encounter Note* Telephone Encounter - SHALOM Vincent - 06/19/2023 12:06 PM EST It does not appear he had it done. Would you please send him a letter asking him to go to the lab to get his 6 month PSA checked? Thank you [facility] Center[facility]01-25-2024 Telephone encounter Note* Telephone Encounter - Kimberli Valero LPN - 06/19/2023 12:06 PM EST Spoke to patient he is in a facility after having his toes amputated so is unable to get out to have lab work done Would you like me to send a order to the facility paulina rodriguez [facility] CenterSound2Light Productions [id number] Telephone encounter Note* Telephone Encounter - SHALOM Vincent - 06/19/2023 12:06 PM EST Yes please. Thank you. The order is in the chart from November 2022. Would you please watch for the results? Clip [id number] Telephone encounter Note* Telephone Encounter - Kimberli Valero LPN - 06/19/2023 12:06 PM EST Orders faxed to facility will call results at end of the week [employer]01-25-2024 Telephone encounter Note* Telephone Encounter - Kimberli Valero LPN - 06/19/2023 12:06 PM EST Patient has been admitted to the hospital and unable to have PSA done [facility]01-25-2024 Telephone encounter Note* Telephone Encounter - SHALOM Vincent - 06/19/2023 12:06 PM EST He still has not had it done but has a follow-up scheduled 12/16. Will address at that time [facility]12-06-2023 Evaluation note* Encounter Date Diagnosis Assessment Notes Treatment Notes Treatment Clinical Notes Apr, Osteomyelitis of foot, left, acu te (ICD-10 - M86.172) Finished IV abx last week and is doing well. Left foot overall clincically better he tells me but given specialty dressings this was not unwrapped in my office. He follows with Dr. Han for his footcare. CRP has downtrended. No follow up needed unless things change. [facility] Other 11-16-2023 Evaluation note* Encounter Date Diagnosis Assessment Notes Treatment Notes Treatment Clinical Notes Mar, Osteomyelitis of foot, left, acu te (ICD-10 - M86.172) Patient to continue to have marker inflammation checked as this does show signs of resolution. Given bone infection would like to make sure he completes enough antibiotics for which he has been on about almost 4 to 5 weeks. Would like to extend course of meropenem an additional 2 weeks. We will continue to check markers of inflammation. [facility] Other 10-26-2023 Evaluation note* Encounter Date Diagnosis Assessment Notes Treatment Notes Treatment Clinical Notes Feb, Type 2 diabetes mellitus with hy perglycemia (ICD-10 - E11.65) Managing type 2 diabetes material was published 1. Controlled, Type 2 diabetes with A1C of 6.4%. 2. Blood glucose levels improved. According to armando cgm reviewed manually last 7 days: Avg . >180-11%, 70-180-89%, <70-0%. Pt reports when d/c'd [...] tirate basal/bolus insulin according to fasting am/ mealto meal glucose pattern. Pt verbalizes understanding. 3. Patient is alert, oriented and receptive to making changes or counseling. Notes: Seen for an assessment of current glucose pattern, changes in treatment plan, with this timespent in counseling and coordination of care related to diabetes, risks, and benefits of treatment,medications, and side effects. TOPICS REVIEWED: 1. Time was spent reviewing: a. Basic concepts of diabetes, progressive beta cell , concepts of basal/bolus/corrective insulin requirements. Basal: The goal is fasting [...] or sores that do not appear to behealing. 4. Meter: Plan to check blood glucose: [...] hyperglycemia, or diabetes medication issues. 6. Prescriptions: Rapidlea PAP-Basaglar/Humalog/Trulicity. 2023 Adiana ANASTASIA completed and required documentation supplied. 7. Prescriptions will not be filled unless you are compliant with follow up appointments or have a follow up appointment scheduled as ordered by your provider. Refills should be requested at the timeof your visit. Feb,ietary counseling and surveillance (ICD-10 - Z71.3)Heart healthy diet material was published Feb,HTN (hypertension) (ICD-10 - I10)Managing high blood pressure material was published Feb,Long term current use of insulin (ICD-10 - Z79.4) Feb,Hypoglycemia associated with type 2 diabetes mellitus (ICD-10 - E11.649)Diabetes and foot care material was published see above Feb,Mixed hyperlipidemia (ICD-10 - E78.2)Cholesterol-lowering diet material was published 02/2022 ldl 27, trig. 269 on statin Feb,MI 30.0-30.9,adult (ICD-10 - Z68.30) 20 pound weight loss from last visit, continue with weight loss efforts Feb,Ulcer of left foot, unspecified ulcer stage (ICD-10 - L97.642) keep f/u with Dr. Han [facility] Other 10-16-2023 Miscellaneous Notes* Telephone Encounter - Corrine Terrell RN - 03/10/2023 9:44 AM EDT ----- Message from Christine Vargas PA-C sent at 03/07/2023 3:55 PM EDT ----- Regarding: Follow up on outpatient imaging This was a patient we saw as a telestroke consult at [facility]. He had abnormal brain MRI showing midline [...] call to spouse. Imaging is scheduled at [facility]. Will send clinicals to them so they can submit prior authorization. * Telephone Encounter - Corrine Terrell RN - 03/10/2023 9:44 AM EDT Jhonny, can you fax office note to [facility] radiology please * Telephone Encounter - Oni [...] EDT Received and scanned in report into environmental remediation consultant. please advise. * Telephone Encounter - Ml [...] needs to see neurosurgery. [facility] Tele[facility] Note* Telephone Encounter - Corrine Terrell RN - 03/10/2023 9:44 AM EDT ----- Message from Christine Vargas PA-C sent at 03/07/2023 3:55 PM EDT ----- Regarding: Follow up on outpatient imaging This was a patient we saw as a telestroke consult at [facility]. He had abnormal brain MRI showing midline [...] We can call them with the results. [facility]10-16-2023 Telephone encounter Note* Telephone Encounter - Dorina Pineda - 03/10/2023 9:44 AM EDT Patient's spouse, Rita wanted to inform clinical staff that the their still needs to approve the MRI brain with and without contrast. [facility]10-16-2023 Telephone encounter Note* Telephone Encounter - Corrine Terrell RN - 03/10/2023 9:44 AM EDT Returned call to spouse. Imaging is scheduled at [facility]. Will send clinicals to them so they can submit prior authorization. [facility]10-16-2023 Telephone encounter Note* Telephone Encounter - Corrine Terrell RN - 03/10/2023 9:44 AM EDT Jhonny, can you fax office note to [facility] please [facility]10-16-2023 Telephone encounter Note* Telephone Encounter - Oni Coleman CNA - 03/10/2023 9:44 AM EDT Faxed office note to [facility]. [facility]10-16-2023 Telephone encounter Note* Telephone Encounter - Corrine Terrell RN - 03/10/2023 9:44 AM EDT Can you see when imaging is scheduled for with Luis F please [facility]10-16-2023 Telephone encounter Note* Telephone Encounter - Oni [...] in regards to getting the imaging scheduled. [facility]10-16-2023 Telephone encounter Note* Telephone Encounter - Oni Coleman CNA - 03/10/2023 9:44 AM EDT Called and got the imaging pushed to us. [facility]10-16-2023 Telephone encounter Note* Telephone Encounter - Kelly Sullivan - 03/10/2023 9:44 AM EDT Received call today 03/27/23 4:23 from patient's , Rita (HIPAA/PHI contact), to get status update. I informed her of Oni's message below and she voiced understanding. She said nothing neededfurther at this time. [facility]10-16-2023 Telephone encounter Note* Telephone Encounter - Corrine Terrell RN - 03/10/2023 9:44 AM EDT Nothing yet received. [facility]10-16-2023 Telephone encounter Note* Telephone Encounter - Oni Coleman CNA - 03/10/2023 9:44 AM EDT Called and requested that imaging be sent over. [facility]10-16-2023 Telephone encounter Note* Telephone Encounter - Oni Coleman CNA - 03/10/2023 9:44 AM EDT Received and scanned in report into environmental remediation consultant. please advise. [facility]10-16-2023 Telephone encounter Note* Telephone Encounter - Ml Brenner PA-C - 03/10/2023 9:44 AM EDT Please have Dr. Cummins review MRI brain. Thinking this is meningioma and most appropriate for followup with neurosurgery Ml Brenner PA-C 04/03/233 [facility] Work Phone: 1(227) 704-676410-16-2023 Telephone encounter Note* Telephone Encounter - Oni Coleman CNA - 03/10/2023 9:44 AM EDT Called and requested that imaging be sent over. [facility]-16-2023 Telephone encounter Note* Telephone Encounter - Corrine Terrell RN - 03/10/2023 9:44 AM EDT Reviewed with Dr. Cummins. Patient needs to see neurosurgery. [facility]10-10-2023 Hospital Discharge instructionsAmbulatory Orders* Initiate Home Health [...] DM - [facility] - [facility] Work Phone: 1(246) 939-183310-10-2023 Progress note Author Michael Ramírez [facility] March 04, 2023 10:01amNote Date/TimeOct2022 10:01[place] [address] Infect. Disease Progress Note Signed Patient: Chelsea Diego JR MR#: [id number] : 1950 Acct:[id number] Age/Sex: 72 / M Adm Date: 3 Loc: 4 Room: [address] [place] [address] Type: ADM IN Attending Dr: Orestes Mejia [...] 60 Mg Capsule.Dr) 60 mg PO DAILY [facility] Stop: 02/23/24 17:14 Last Admin: 03/04/23 09:35 Dose: 60 mg Enoxaparin Sodium (Enoxaparin 40 Mg/0.4 Ml Syringe) 40 mg SUBCUT DAILY@10 [facility] Stop: 02/24/24 09:59 Last Admin: 02/26/23 09:49 Dose: Not Given Gabapentin (Gabapentin 800 Mg Tablet) 800 mg PO BID [facility] Stop: 02/27/24 20:59 Last Admin: 03/04/23 09:34 Dose: 800 mg Glucose (Dextrose 40% Gel 15 Gm Tube) 0 gm PO PRN PRN PRN Reason: Hypoglycemia Stop: 02/24/24 12:16 Cefepime HCl (Maxipime) 2 gm in 50 mls @ 100 mls/hr IV Q12H [facility] Last Infusion: 03/04/23 05:00 Dose: Infused Insulin Aspart (Insulin Aspart 300 Units/3 Ml Insuln.Pen) 0 units SUBCUT TID.AC.[facility]; Protocol Stop: 02/24/24 16:59 Last Admin: 03/04/23 09:36 Dose: Not Given Insulin Glargine (Insulin Glargine 300 Units/3 Ml Insuln.Pen) 41 units SUBCUT BID [facility] Stop: 02/24/24 09:59 Last Admin: 03/04/23 09:36 Dose: 21 units Lidocaine HCl (Lidocaine 1% 50 Ml Vial) 0.1 ml INTRADERMA PREOP PRN PRN Reason: Venipuncture x 1 Dose Magnesium Oxide (Magnesium Oxide 400 Mg Tablet) 400 mg PO DAILY [facility] Stop: 02/27/24 09:14 Last Admin: 03/04/23 09:35 Dose: 400 mg Metoprolol Succinate (Metoprolol Succinate 50 Mg Tab.Er.24h) 50 mg PO DAILY [facility] Stop: 02/23/24 17:14 Last Admin: 03/04/23 09:34 [...] to the crossroads of whether or not heneeds a PICC line or not. I reached out to Dr. Han who let me know that bone apparently may stillbe exposed. PICC line therefore was decided upon and he is going to go home on IV cefepime. He willfollow-up with me in 3 to 4 weeks time. Weekly labs to be done as ordered. Documented By: Michael Ramírez MD 03/04/2359 Signed By: <Electronically signed by MD Michael Ramírez> 03/04/23 1001 [facility] Work Phone: 1(268) 711-834710-09-2023 Progress note Author Orestes Mejia [facility] March 03, 2023 5:32pmNote Date/TimeOct2022 5:32[place] [address] Hospitalist Progress Note Signed Patient: Chelsea Diego JR MR#: [id number] : 1950 Acct:[id number] Age/Sex: 72 / M Adm Date: 3 Loc: 4N Room: [address] [place] [address] Type: ADM IN Attending Dr: Orestes Mejia [...] a large area of dry gangrene over themedial aspect of his left foot. Neuro: AOx3, [...] <Electronically signed by Orestes Mejia DO> 03/03/23 1732 [facility] Work Phone: 1([phone]) 900-573410-09-2023 Progress note Author Michael Ramírez [facility] March 03, 2023 9:11amNote Date/TimeOct2022 9:[address] [address] Infect. Disease Progress Note Signed Patient: Chelsea Diego JR MR#: [id number] : 1950 Acct:[id number] Age/Sex: 72 / M Adm Date: 3 Loc: 4N Room: 6I7819-0 Type: ADM IN Attending Dr: Orestes Mejia DO Copies to: ~ Date of Service: 03/03/2023 Subjective Interval history: Patient is doing well and over the weekend states his diarrhea has improved. Sarah switch to cefepime based on Pseudomonas final culture and susceptibility return. 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 Exam Physical Exam Vital [...] 50 mls @ 100 mls/hr IV Q12H [facility] Last Admin: 03/03/23 05:26 Dose: 100 mls/hr Insulin Aspart (Insulin Aspart 300 Units/3 Ml Insuln.Pen) 0 units SUBCUT TID.AC.[facility]; Protocol Stop: 02/24/24 16:59 Last Admin: 03/03/23 08:00 Dose: Not Given Insulin Glargine (Insulin Glargine 300 Units/3 Ml Insuln.Pen) 41 units SUBCUT BID [facility] Stop: 02/24/24 09:59 Last Admin: 03/02/23 21:39 Dose: 21 units Lidocaine HCl (Lidocaine 1% 50 Ml Vial) 0.1 ml INTRADERMA PREOP PRN PRN Reason: Venipuncture x 1 Dose Magnesium Oxide (Magnesium Oxide 400 Mg Tablet) 400 mg PO DAILY [facility] Stop: 02/27/24 09:14 Last Admin: 03/02/23 09:37 Dose: 400 mg Metoprolol Succinate (Metoprolol Succinate 50 Mg Tab.Er.24h) 50 mg PO DAILY [facility] Stop: 02/23/24 17:14 Last Admin: 03/02/23 09:37 [...] 250 Mg Capsule) 250 mg PO BID.WITH.MEALS [facility] Stop: 02/26/24 17:39 Last Admin: 03/02/23 17:09 [...] in thehospital due to the crossroads of whetheror not he needs a PICC line or [...] By: <Electronically signed by MD Michael Ramírez> 03/03/2311 [facility] Work Phone: 1(166) [phone] Progress note Author Eulogio Peg [facility] March 02, 2023 6:37pmNote Date/TimeOct2022 6:[place] [address] Hospitalist Progress Note Signed Patient: Chelsea Diego JR MR#: [id number] : 1950 Acct:[id number] Age/Sex: 72 / M Adm Date: 3 Loc: 4N Room: [id number] Type: ADM IN Attending Dr: Eulogio Ruvalcaba MD Copies to: ~ Date of Service: 03/02/2023 Subjective Subjective Narrative: 03/02/2023 Patient was sitting up at the side of the bed. He did not have any fever or chills. His blood sugaris somewhat well controlled. 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 Patient possibly will need PICC for longer antibiotic therapy. He will be evaluated by infectious diseasetomorrow to make a final call on home-going [...] healthcare background. I explained that although the patienthad hoped to go home today because the [...] He says that he had 2 blowouts ofdiarrhea yesterday. He is not having any cramping. [...] 1.94 up to 1.531.65 and then up to1.73 today. Because there is no MRSA the [...] Insuln.Pen SUBCUT 02/24/24 16:59 Not Given TID.AC.HS [facility] Protocol Insulin Glargine 41 units 02/24/23 10:00 [...] Pseudomonas. Documented By: Eulogio Ruvalcaba MD 03/02/23 0452 Signed By: <Electronically signed by Eulogio Ruvalcaba MD> 03/02/23 1837 [facility] Work Phone: 1(331) [phone] Progress note Author Eulogio Ruvalcaba [facility] March 01, 2023 6:17pmNote Date/TimeOct2022 6:13[place] [address] Hospitalist Progress Note Signed Patient: Chelsea Diego JR MR#: [id number] : 1950 Acct:[id number] Age/Sex: 72 / M Adm Date: 3 Loc: 4N Room: [address] [place] [address] Type: ADM IN Attending Dr: Eulogio Ruvalcaba [...] healthcare background. I explained that although the patienthad hoped to go home today because the [...] He says that he had 2 blowouts ofdiarrhea yesterday. He is not having any cramping. [...] 1.94 up to 1.531.65 and then up to1.73 today. Because there is no MRSA the [...] Insuln.Pen SUBCUT 02/24/24 16:59 Not Given TID.AC.HS [facility] Protocol Insulin Glargine 41 units 02/24/23 10:00 [...] a viral gastrointestinal syndrome. I do not getthe sense that he has an acute new [...] <Electronically signed by Eulogio Ruvalcaba MD> 03/01/231816 [facility] Work Phone: 1(134) 507-200310-06-2023 Progress note Author Geo Thomas [facility] February 28, 2023 12:46pmNote Date/TimeOct2022 12:46[place] [address] Hospitalist Progress Note Signed Patient: Chelsea Diego JR MR#: [id number] : 1950 Acct:[id number] Age/Sex: 72 / M Adm Date: 3 Loc: 4N Room: 6U7816-6 Type: ADM IN Attending Dr: Geo Thomas [...] healthcare background. I explained that although the patienthad hoped to go home today because the [...] He says that he had 2 blowouts ofdiarrhea yesterday. He is not having any cramping. [...] 1.94 up to 1.531.65 and then up to1.73 today. Because there is no MRSA the [...] Ml Insuln.Pen SUBCUT 02/24/24 16:59 3 units TID.AC. [facility] Administration Protocol Insulin Glargine 41 units [...] 23:00 Ondansetron 4 Mg/2 Ml Vial IV 10/04/24 22:50 4 mg Q4HR PRN Administration NAUSEA [...] a viral gastrointestinal syndrome. I do not getthe sense that he has an acute new [...] signed by Geo Thomas DO> 02/28/23 1246 [facility] Work Phone: 1(136) 645-530310-06-2023 Progress note Author Michael Ramírez [facility] February 28, 2023 11:51amNote Date/TimeOct2022 9:04[place] [address] Infect. Disease Progress Note Signed Patient: Chelsea Diego JR MR#: [id number] : 1950 Acct:[id number] Age/Sex: 72 / M Adm Date: 3 Loc: 4N Room: [address] [place] [address] Type: ADM IN Attending Dr: Geo Thomas [...] 75 Mg Tablet) 75 mg PO DAILY [facility] Stop: 02/23/24 17:14 Last Admin: 02/26/23 14:37 Dose: Not Given Dextrose (Dextrose 50% In Water 25 Gm/50 Ml Syringe) 0 gm IV-PUSH PRN PRN PRN Reason: Hypoglycemia Stop: 02/24/24 12:16 Duloxetine HCl (Duloxetine 60 Mg Capsule.Dr) 60 mg PO DAILY [facility] Stop: 02/23/24 17:14 Last Admin: 02/28/23 08:05 Dose: 60 mg Enoxaparin Sodium (Enoxaparin 40 Mg/0.4 Ml Syringe) 40 mg SUBCUT DAILY@10 [facility] Stop: 02/24/24 09:59 Last Admin: 02/26/23 09:49 Dose: Not Given Gabapentin (Gabapentin 800 Mg Tablet) 800 mg PO BID [facility] Stop: 02/27/24 20:59 Last Admin: 02/28/23 08:04 [...] 300 Units/3 Ml Insuln.Pen) 0 units SUBCUT TID.AC.[facility]; Protocol Stop: 02/24/24 16:59 Last Admin: 02/28/23 07:59 Dose: Not Given Insulin Glargine (Insulin Glargine 300 Units/3 Ml Insuln.Pen) 41 units SUBCUT BID [facility] Stop: 02/24/24 09:59 Last Admin: 02/28/23 08:05 Dose: 41 units Lidocaine HCl (Lidocaine 1% 50 Ml Vial) 0.1 ml INTRADERMA PREOP PRN PRN Reason: Venipuncture x 1 Dose Magnesium Oxide (Magnesium Oxide 400 Mg Tablet) 400 mg PO DAILY [facility] Stop: 02/27/24 09:14 Last Admin: 02/28/23 08:05 [...] controlled diabetes mellitus who presented to the emergencyroom with diabetic foot infection and exposed bone ofthe fifth metatarsal. He presented with a leukocytosis and x-ray showed findings suggestive of underlying osteomyelitis which was confirmed by MRI. 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 Han. Deep wound cultures were taken during the procedure and are preliminarily showing light growth ofpseudomonas, and the gram stain showedrare WBC with [...] discontinue the vancomycin and maintain the pt onZosyn alone. Spoke with microlab and sensitivities for Pseudomonas should be out tomorrow. If suscep tible toquinolones then would simply transition to oral Cipro or Levaquin and treat for 7 days postsurgical procedure Documented By: Gabino Hyman DO,RES 02/28/23 090 0 Signed By: <Electronically signed by DO KELLE Hyman> 02/28/23 0948 <Electronically signed by MD Michael Ramírez> 02/28/23 1151 [facility] Work Phone: 1(642) [phone] Progress note Author Rohan Han [facility] February 28, 2023 8:08amNote Date/TimeOct2022 8:08[place] [address] Podiatry Progress Note Signed Patient: Chelsea Diego JR MR#: [id number] : 1950 Acct:[id number] Age/Sex: 72 / M Adm Date: 3 Loc: 4N Room: [address] [place] [address] Type: ADM IN Attending Dr: Geo Thomas [...] that has lifted and nonadherent Integra dressing. Ulcerationto bone left fifth metatarsal neckregion with ulceration [...] have while in house and also may count includes the [facility] to continue while at home. Ordered [...] <Electronically signed by TOY Han> 02/28/23 0808 [facility] Work Phone: 1(855) 160-500210-05-2023 Progress note Author Geo Thomas [facility] February 27, 2023 12:05pmNote Date/TimeOct2022 12:05pm[place] [address] Hospitalist Progress Note Signed Patient: Chelsea Diego JR MR#: [id number] : 1950 Acct:[id number] Age/Sex: 72 / M Adm Date: 3 Loc: 4N Room: [address] [place] [address] Type: ADM IN Attending Dr: Geo Thomas [...] is really good. He said that at homefor several weeks he had a poor appetite [...] signed by Geo Thomas DO> 02/27/23 1205 [facility] Work Phone: 1(515) 309-880110-05-2023 Progress note Author Michael Ramírez [facility] February 27, 2023 11:11amNote Date/TimeOct2022 8:35[place] [address] Infect. Disease Progress Note Signed Patient: Chelsea Diego JR MR#: [id number] : 1950 Acct:[id number] Age/Sex: 72 / M Adm Date: 3 Loc: 4N Room: 0D9631-4 Type: ADM IN Attending Dr: Geo Thomas [...] 25 Mg Tablet) 25 mg PO DAILY [facility] Stop: 02/26/24 08:59 Last Admin: 02/27/23 08:00 Dose: 25 mg Piperacillin Sod/Tazobactam Sod (Zosyn) 3.375 gm in 100 mls @ 200 mls/hr IV Q6HSCH Last Admin: 02/27/23 08:00 Dose: 200 mls/hr Insulin Aspart (Insulin Aspart 300 Units/3 Ml Insuln.Pen) 0 units SUBCUT TID.AC.[facility]; Protocol Stop: 02/24/24 16:59 Last Admin: 02/27/23 07:57 Dose: Not Given Insulin Glargine (Insulin Glargine 300 Units/3 Ml Insuln.Pen) 41 units SUBCUT BID [facility] Stop: 02/24/24 09:59 Last Admin: 02/27/23 08:00 Dose: 41 units Lidocaine HCl (Lidocaine 1% 50 Ml Vial) 0.1 ml INTRADERMA PREOP PRN PRN Reason: Venipuncture x 1 Dose Metoprolol Succinate (Metoprolol Succinate 50 Mg Tab.Er.24h) 50 mg PO DAILY [facility] Stop: 02/23/24 17:14 Last Admin: 02/27/23 08:00 Dose: 50 mg Metoprolol Tartrate (Metoprolol Tartrate 5 Mg/5 Ml Vial) 5 mg IV-PUSH Q4H PRN PRN Reason: Blood Pressure Stop: 02/25/24 13:56 Last Admin: 02/26/23 05:12 Dose: 5 mg Saccharomyces Boulardii (Saccharomyces Boulardii 250 Mg Capsule) 250 mg PO BID.WITH.MEALS [facility] Stop: 02/26/24 17:39 Last Admin: 02/27/23 08:00 [...] controlled diabetes mellitus who presented to the emergencyroom with diabetic foot infection and exposed bone ofthe fifth metatarsal. He presented with a leukocytosis of 13 and x-ray showed findings suggestive of underlying osteomyelitis which was confirmed by MRI. He did undergo amputation of the left fifth metatarsal and left fifth digit yesterday by . Deep wound cultures were taken during the procedure andare growing a GNR to date. His white blood cell count did increase today to 13.9 from 12.7 yesterday though this could just be from stress from the surgicalintervention yesterday. From infectious disease perspective, we will maintain himon IV vancomycin and Zosyn. Will narrow spectrum as cultures and sensitivities return. Per operative note it appears that excision of infected bone should have been complete. May require short courseof postoperative antibiotics and if we can transition to oral choice then we will. Documented By: Gabino Hyman DO, RES 02/27/23 083 2 Signed By: <Electronically signed by DO KELLE Hyman> 02/27/23 1003 <Electronically signed by MD Michael Ramírez> 02/27/23 1111 [facility] Work Phone: 1(206) 434-311510-04-2023 Progress note Author Rohan Han [facility] February 26, 2023 6:32pmNote Date/TimeOct2022 6:33[place] [address] Podiatry Progress Note Signed Patient: Chelsea Diego JR MR#: [id number] : 1950 Acct:[id number] Age/Sex: 72 / M Adm Date: 3 Loc: 4N Room: 9W2950-4 Type: ADM IN Attending Dr: Geo Thomas [...] and foot Documented By: Rohan Han DPM 02/26/231828 Signed By: <Electronically signed by TOY Han> 02/26/231831 [facility] Work Phone: 1(639) 330-695210-04-2023 Progress note Author Geo Thomas [facility] February 26, 2023 5:36pmNote Date/TimeOct2022 5:28[place] [address] Hospitalist Progress Note Signed Patient: Chelsea Diego JR MR#: [id number] : 1950 Acct:[id number] Age/Sex: 72 / M Adm Date: 3 Loc: 4N Room: 1U8930-3 Type: ADM IN Attending Dr: Geo Thomas [...] organisms. This includes blood cultures x2 and thenthe intraoperative culture obtained today. Subjective: The patient [...] Name Rayq PRN Reason Stop Dose Admin Atorvastatin Calcium [...] 1,000 Ml IV 02/23/24 17:14 Not Given .[id number] [facility] Piperacillin Sod/Tazobactam Sod 3.375 gm in [...] <Electronically signed by Geo Thomas DO> 02/26/231735 [facility] Work Phone: 1(340) 317-364710-04-2023 Progress note Author Michael Ramírez [facility] February 26, 2023 8:46amNote Date/TimeOct2022 8:46[place] [address] Infect. Disease Progress Note Signed Patient: Chelsea Diego JR MR#: [id number] : 1950 Acct:[id number] Age/Sex: 72 / M Adm Date: 3 Loc: 4N Room: [address] [place] [address] Type: ADM IN Attending Dr: Geo Thomas [...] changes of the mid and distal portion ofthe fifth metatarsal and the proximal portion of [...] 60 Mg Capsule.Dr) 60 mg PO DAILY [facility] Stop: 02/23/24 17:14 Last Admin: 02/25/23 08:29 [...] 25 Mg Tablet) 25 mg PO DAILY [facility] Stop: 02/26/24 08:59 Sodium Chloride (0.9% Sodium Chloride 1,000 Ml) 1,000 mls @ 75 mls/hr IV .[id number] [facility] Stop: 02/23/24 17:14 Last Admin: 02/25/23 21:53 Dose: Not Given Piperacillin Sod/Tazobactam Sod (Zosyn) 3.375 gm in 100 mls @ 200 mls/hr IV Q6HSCH Last Admin: 02/26/23 02:43 Dose: 200 mls/hr Vancomycin HCl 1.25 gm/ (Dextrose) 275 mls @ 183.333 mls/hr IV Q12H [facility] Stop: 02/24/24 00:59 Last Admin: 02/26/23 00:41 Dose: 183.33 mls/hr Lactated Ringer's (Lactated Ringers) 1,000 mls @ 20 mls/hr IV .Q24H [facility] Stop: 02/26/23 20:28 Last Admin: 02/25/23 20:39 Dose: Not Given Insulin Aspart (Insulin Aspart 300 Units/3 Ml Insuln.Pen) 0 units SUBCUT TID.[facility]; Protocol Stop: 02/24/24 16:59 Last Admin: 02/25/23 21:52 Dose: 1 units Insulin Glargine (Insulin Glargine 300 Units/3 Ml Insuln.Pen) 41 units SUBCUT BID [facility] Stop: 02/24/24 09:59 Last Admin: 02/25/23 21:52 Dose: 41 units Lidocaine HCl (Lidocaine 1% 50 Ml Vial) 0.1 ml INTRADERMA PREOP PRN PRN Reason: Venipuncture x 1 Dose Metoprolol Succinate (Metoprolol Succinate 50 Mg Tab.Er.24h) 50 mg PO DAILY [facility] Stop: 02/23/24 17:14 Last Admin: 02/25/23 08:29 [...] By: <Electronically signed by MD Michael Ramírez> 02/26/2346 [facility] Work Phone: 1(872) 889-698410-03-2023 Progress note Author Geo Thomas [facility] February 25, 2023 2:21pmNote Date/TimeOct2022 1:04pm[place] [address] Hospitalist Progress Note Signed Patient: Chelsea Diego JR MR#: [id number] : 1950 Acct:[id number] Age/Sex: 72 / M Adm Date: 3 Loc: 4N Room: 2Z8718-7 Type: ADM IN Attending Dr: Geo Thomas [...] The toes are visible. No streakingcellulitis is visiblegoing up the left leg. Right leg is [...] 1,000 Ml IV 02/23/24 17:14 75 mls/hr .[id number] [facility] Administration Piperacillin Sod/Tazobactam Sod 3.375 gm [...] signed by Geo Thomas DO> 02/25/23 1421 [facility] Work Phone: 1([phone]) 122-505710-03-2023 Progress note Author Michael Ramírez [facility] February 25, 2023 10:41amNote Date/TimeOct2022 9:08[place] [id number] Infect. Disease Progress Note Signed Patient: Chelsea Diego JR MR#: [id number] : 1950 Acct:[id number] Age/Sex: 72 / M Adm Date: 3 Loc: 4N Room: [address] [place] [address] Type: ADM IN Attending Dr: Geo Thomas DO Copies to: ~ Date of Service: 02/25/2023 Subjective Interval history: Pt is awake and alert laying comfortable in the bed upon me walking into the room. No acute events overnight. States his foot pain is tolerable for him. Heate supper last night and tolerated it well.No new concerns to report at this time. [...] Ml) 1,000 mls @ 75 mls/hr IV .[id number] [facility] Stop: 02/23/24 17:14 Last Admin: 02/25/23 01:43 Dose: 75 mls/hr Piperacillin Sod/Tazobactam Sod (Zosyn) 3.375 gm in 100 mls @ 200 mls/hr IV Q6HSCH Last Admin: 02/25/23 08:29 Dose: 200 mls/hr Vancomycin HCl 1.25 gm/ (Dextrose) 275 mls @ 183.333 mls/hr IV Q12H [facility] Stop: 02/24/24 00:59 Last Admin: 02/25/23 01:43 Dose: 183.33 mls/hr Insulin Aspart (Insulin Aspart 300 Units/3 Ml Insuln.Pen) 0 units SUBCUT TID.AC.[facility]; Protocol Stop: 02/24/24 16:59 Last Admin: 02/25/23 08:33 Dose: Not Given Insulin Glargine (Insulin Glargine 300 Units/3 Ml Insuln.Pen) 41 units SUBCUT BID [facility] Stop: 02/24/24 09:59 Last Admin: 02/24/23 20:55 Dose: 41 units Metoprolol Succinate (Metoprolol Succinate 50 Mg Tab.Er.24h) 50 mg PO DAILY [facility] Stop: 02/23/24 17:14 Last Admin: 02/25/23 08:29 [...] controlled diabetes mellitus who presented to the emergencyroom with diabetic foot infection and exposed bone ofthe fifth metatarsal. He presented with a leukocytosis of 13 and x-ray showed findings suggestive of underlying osteomyelitis. Patient follows with both podiatry and vascular surgery in the outpatient setting. Per vascular surgery note, he recently underwent a left lower extremity arteriogram with balloon angioplasty of the left anterior tibialartery and tibial peroneal trunk in December. He [...] signed by MD Michael Ramírez> 02/25/23 1041 [facility] Work Phone: 1(971) 980-193910-02-2023 Consult note Author Dhruv Bautista [facility] February 24, 2023 4:15pmNote Date/TimeOct2022 8:50[place] [address] Vascular Surgery Consult Note Signed Patient: Chelsea Diego JR MR#: [id number] : 1950 Acct:[id number] Age/Sex: 72 / M Adm Date: 3 Loc: 4N Room: [address] [place] [address] Type: ADM IN Attending Dr: Brennan Cerrato MD Copies to: MD Pamela Cruz APRN Jeffrey L Buehrer, MD Marc Naderer, MD~ HPI Consult HPI Reason for consult: History of PAD with nonhealing diabetic ulcer History of present illness: This is a well-known patient to our service. He recently underwent left lower extremity arteriogramwith balloon angioplasty of the left anterior tibial artery and tibial peroneal trunk in December. Hewas seen a few weeks ago in the office with postprocedure ABIs which were normal. At that time his wound seemedto be making some progress and he continued following with podiatry specialist Dr. Hawkins an outpatient with serial debridements in the [...] negative unless noted below or in HPI [facility] Medical History Singh's palsy Cataract Diabetes GERD [...] x3. He has no shortness of breath withour conversation. I did removethe dressings from the left foot to evaluate his wounds this morning.He has large ulceration on the lateral aspect of his foot which is 2-3 times bigger than it was in our office 3 weeks ago. The wound is covered in slough and thereappears to be visualized tendon present. The wound is quite malodorous. He hasadditional dry ulceration over the first metatarsal head region. His foot is warm and well- perfused with easily palpable DP pulse. PT nonpalpable, [...] % (Auto) 69.6 Lymph % (Auto) 18.7 [place] % (Auto) 10.0 Eos % (Auto) 1.1 Baso % (Auto) 0.6 Nucleat RBC Rel Count 0.1 Neut # (Auto) 9.0 H Lymph # (Auto) 2.4 [place] # (Auto) 1.3 H Eos # (Auto) [...] 8.2 Neut % (Auto) Lymph % (Auto) [place] % (Auto) Eos % (Auto) Baso % (Auto) Nucleat RBC Rel Count Neut # (Auto) Lymph # (Auto) [place] # (Auto) Eos # (Auto) Baso # [...] nutritional support and adequate protein intake. This wasall discussed with him at length. It appears he has good blood supply for wound healing by physicalexam. We will follow along during his inpatient [...] <Electronically signed by MD Dhruv Bautista> 02/24/23 1615 [facility] Work Phone: 1([phone]) 159-458110-02-2023 Consult note Author Rohan Han [facility] February 24, 2023 3:50pmNote Date/TimeOctober 2022 3:45pm[place] [address] Podiatry Consult Note Signed Patient: Chelsea Diego JR MR#: [id number] : 1950 Acct:[id number] Age/Sex: 72 / M Adm Date: 3 Loc: Room: [address] [place] [address] Type: ADM IN Attending Dr: Brennan Cerrato [...] office for the past few weeks post va scularprocedure with dry gangrene to the lateral aspect of the left foot.. Patient has had periodicdebridements of the wound with increased breakdown and now exposed tendon and fifth metatarsal headpresent and decision made for admission. Patient states and proved feeling and warmth to the foot post vascular mention and was admitted for MRI as was ordered in the past and unable to have approvedand therefore patient will most likely have surgery [...] [History Confirmed 02/23/23] flash glucose sensor (FreeStyle Armando 2 Sensor kit) 01/13/23 [History Confirmed 02/23/23] [...] for healingin the future. No further intervention byvascular at this time as patient doeshave pulses. 4. Discussed with patient family most likely operative option post MRI will be I&D of left footwith removal of fifth toe and partial fifth metatarsal and willmost likely require wound VAC healing and future and await MRI if further surgical intervention is necessary. Patient agrees to proposedsurgery in the futureand is to be scheduled for surgery once MRI findings complete and will discusswith patient prior to procedure. Decision for surgery today based on findings and podiatry to follow Documented By: Rohan Han DPM 02/24/23 1539 Signed By: <Electronically signed by TOY Han> 02/24/23 1550 [facility] Work Phone: 1(365) 685-963110-02-2023 Progress note Author Brennan Cerrato [facility] February 24, 2023 12:34pmNote Date/TimeOct2022 12:34pmC[place] [address] Hospitalist Progress Note Signed Patient: Chelsea Diego JR MR#: [id number] : 1950 Acct:[id number] Age/Sex: 72 / M Adm Date: 3 Loc: 4N Room: [address] [place] [address] Type: ADM IN Attending Dr: Brennan Cerrato [...] 1,000 Ml IV 02/23/24 17:14 75 mls/hr .[id number] [facility] Administration Piperacillin Sod/Tazobactam Sod 3.375 gm [...] signed by Brennan Cerrato MD> 02/24/23 1234 [facility] Work Phone: 1(174) 823-136310-02-2023 History and physical note Author Brennan Cerrato [facility] February 24, 2023 11:20amNote Date/TimeOctober 2022 4:59pmC[place] [address] Hospitalist H&P Signed Patient: Chelsea Diego JR MR#: [id number] : 1950 Acct:[id number] Age/Sex: 72 / M Adm Date: 3 Loc: 4N Room: [address] [place] [address] Type: ADM IN Attending Dr: Brennan Cerrato MD Copies to: MD Tejas Cruz MD~ HPI DATE OF EXAMINATION: 02/23/23 CHIEF COMPLAINT: Foot ulcer HISTORY OF PRESENT ILLNESS: 72-year male presents ED with a complaint of having left foot issues. The patient has diabetic footinfection. The patient was sent over here by [...] negative unless noted below or in HPI [facility] Medical History Singh's palsy Cataract Diabetes [...] [History Confirmed 02/23/23] flash glucose sensor (FreeStyle Armando 2 Sensor kit) 01/13/23 [History Confirmed 02/23/23] [...] % (Auto) 18.7 % (.) 02/23/23 12:05 [place] % (Auto) 10.0 % (.) 02/23/23 12:05 Eos % (Auto) 1.1 % (.) 02/23/23 12:05 Baso % (Auto) 0.6 % (.) 02/23/23 12:05 Nucleat RBC Rel Count 0.1 /100 WBC (0-0.5) 02/23/23 12:05 Neut # (Auto) 9.0 x10E3/uL (1.8-7.7) H 02/23/23 12:05 Lymph # (Auto) 2.4 x10E3/uL (1.00-4.8) 02/23/23 12:05 [place] # (Auto) 1.3 x10E3/uL (0.0-0.8) H 02/23/23 [...] setting as: INPATIENT because of an expectation ofan over 2 midnight stay. Estimated length of stay (# of days): 3 Documented By: Brennan Cerrato MD 02/23/23 1656 Signed By: <Electronically signed by Brennan Cerrato MD> 02/24/23 1120 [facility] Work Phone: 1(124) [phone] Consult note Author Michael Ramírez [facility] February 24, 2023 10:47amNote Date/TimeOct2022 8:47[place] [address] Infect. Disease Consult Note Signed Patient: Chelsea Diego JR MR#: [id number] : 1950 Acct:[id number] Age/Sex: 72 / M Adm Date: 3 Loc: 4N Room: [address] [place] [address] Type: ADM IN Attending Dr: Brennan Cerrato [...] Patient states he was seen in his medical illustrator (Dr. Han) office on (02/20/2023) and he recommended the patient will need in patient admission for his foot ulcer. However, patient [...] noticed bone exposure of his left fifth toewith active drainage. Patient has been having persistent pain over that area since then. He presented to the emergency room yesterday with fifth metatarsal bone exposure and a worsening diabetic footulcer. Left foot x-ray in the emergency room showed evidence of possible osteomyelitis. Lab work inthe emergency room revealed a lactic acid of [...] at home. States he did not have an ydirect injury or trauma to the area recently. [...] and no additional complaints, except as documented [facility] Medical History Singh's palsy Cataract Diabetes GERD [...] Mg/0.4 Ml Syringe) 40 mg SUBCUT DAILY@10 [facility] Stop: 02/24/24 09:59 Gabapentin (Gabapentin 800 Mg Tablet) 800 mg PO TID [facility] Stop: 02/23/24 21:59 Last Admin: 02/23/23 21:11 Dose: 800 mg Sodium Chloride (0.9% Sodium Chloride 1,000 Ml) 1,000 mls @ 75 mls/hr IV .[id number] [facility] Stop: 02/23/24 17:14 Last Admin: 02/23/23 19:00 Dose: 75 mls/hr Piperacillin Sod/Tazobactam Sod (Zosyn) 3.375 gm in 100 mls @ 200 mls/hr IV Q6HSCH Last Admin: 02/24/23 03:06 Dose: 200 mls/hr Vancomycin HCl 1.25 gm/ (Dextrose) 275 mls @ 183.333 mls/hr IV Q12H [facility] Stop: 02/24/24 00:59 Last Admin: 02/24/23 00:55 Dose: 183.33 mls/hr Insulin Glargine (Insulin Glargine 300 Units/3 Ml Insuln.Pen) 40 units SUBCUT 2XD [facility] Stop: 02/23/24 20:29 Metoprolol Succinate (Metoprolol Succinate [...] the left fifth metatarsal. Odor noted with pullingback of the dressing. Some necrotic material appreciated. [...] BE A SOFT TISSUE DEFECT INVOLVING THE LATERALASPECT OF THE LEFT FOOT WITH POSSIBLE BONE EXPOSURE OF THEFIFTH METATARSAL. THERE APPEARS TO BE SOME DEGREE OF BONY DESTRUCTION AND SUBLUXATION INVOLVING THE FIFTH MTP JOINT SUGGESTIVE OF UNDERLYING O STEOMYELITIS. A&P - Infectious Disease (1) Diabetic foot infection: Status: Acute (2) Osteomyelitis: Status: Acute Plan 72-year-old male with history of poorly controlled diabetes mellitus who presented to the emergencyroom with diabetic foot infection and exposed bone ofthe fifth metatarsal. He presented with a leukocytosis of 13 and x-ray showed findings suggestive of underlying osteomyelitis. He was started on IV vancomycin and Zosyn in the emergency room. Infectious disease consulted for management of the diabetic foot ulcer. Patient follows with both podiatry and vascular surgery in the outpatient setting.Per vascular surgery note, he recently underwent a [...] the cultures and narrow spectrum as appropriate. MRIof the left foot is pending. I performed a history and physical examination of the patient and discussed his/her management withthe resident/student. I reviewed the resident?s/student's note and agree with the documented findings and plan of care. Documented By: Gabino Hyman DO,KELLE 02/24/23 084 5 Signed By: <Electronically signed by DO KELLE Hyman> 02/24/23 0955 <Electronically signed by MD Michael Ramírez> 02/24/23 1047 [facility] Work Phone: 1(116) 391-533009-11-2023 Evaluation note* Encounter Date Diagnosis Assessment Notes Treatment Notes Treatment Clinical Notes Jan, PAD (peripheral artery disease) (ICD-10 - I73.9) Jan,Ulcer of left foot, unspecified ulcer stage (ICD-10 - L97.529) Jan,OtherPatient did get good holiness of flow to the left foot with [...] Discussed importance of ongoing wound care with dailydressing changes. Discussed importance of not only good blood flow but good diabetic management, offloading, dressing changes, good nutritional support in his wound care. Patient states understandingof all discussion and agrees with this plan. We will see him again in a few weeks for wound check [facility] Other 08-18-2023 Evaluation note* Encounter Date Diagnosis Assessment Notes Treatment Notes Treatment Clinical Notes Dec, PAD (peripheral artery disease) (ICD-10 - I73.9) Dec,Ulcer of left foot, unspecified ulcer stage (ICD-10 - L97.529) Dec,OtherThis patient has presence of multiple small ulcerations on the left foot that have been present forabout 3 weeks now. His foot is quite painful. He also has some ischemic rubor noted from the midfoot distally. ABIs obtained in outside facility indicate severe hemodynamic impairment of the left lower extremity at rest. Dr. Batuista in room to evaluate further. Discussed recommendation for angiogram to evaluate his blood supply for healing. Patient will most likely require endovascular intervention to aid in wound healing.Procedure, risk, benefits were discussed with him at length and all questions were addressed. Consent was obtained. We will get him on the schedule in the near future. [facility] Other 03-01-2023 Evaluation note* Encounter Date Diagnosis Assessment Notes Treatment Notes Treatment Clinical Notes Jul, Type 2 diabetes mellitus with hy perglycemia (ICD-10 - E11.65) Managing type 2 diabetes material was published 1. Uncontrolled, Type 2 diabetes with A1C of 9.0% GMI 7.6% today. 2. Blood glucose levels improved. According to [employer] cgm download 07/11/2022- 07/24/2022: Avg glucose 180. >250-11%, >180-33%, 70-180-56%, <70-0%, <54-0%. CV 27.8%. Reviewed download with pt,glucose improved, remain above target. Glucose above target [...] pattern, changes in treatment plan, with this timespent in counseling and coordination of care related to diabetes, risks, and benefits of treatment,medications, and side effects. TOPICS REVIEWED: 1. Time was spent reviewing: a. Basic concepts of diabetes, progressive beta cell , concepts of basal/bolus/corrective insulin requirements. Basal: The goal is fasting [...] or sores that do not appear to behealing. 4. Meter: Plan to check blood glucose: [...] diabetes medication issues. 6. Prescriptions: Pap from [facility] for basaglar/humalog/trulicity. 7. Prescriptions will not be filled unless you are compliant with follow up appointments or have a follow up appointment scheduled as ordered by your provider. Refills should be requested at the timeof your visit. Jul,ietary counseling and surveillance (ICD-10 - Z71.3)Heart healthy diet material was published Jul,HTN (hypertension) (ICD-10 - I10)Managing high blood pressure material was published uncontrolled- f/u with pcp for further recommendation Jul,Long term current use of insulin (ICD-10 - Z79.4) Jul,Hypoglycemia associated with type 2 diabetes mellitus (ICD-10 - E11.649)Diabetes and foot care material was published see above Jul,Mixed hyperlipidemia (ICD-10 - E78.2)Cholesterol-lowering diet material was published 07/2020 ldl 118, trig. 768 on statin Jul,ut of foot (ICD-10 - S91.319A) referral to podiatry Keep covered with a clean and dry bandage while working; may remove at night. Report to ED immediately if signs of infection occur: redness, increasing pain, swelling, fever, red streaks progressing up an extremity. Jul,MI 34.0-34.9,adult (ICD-10 - Z68.34) 7 pound weight loss from last visit, continue with weight loss efforts [facility] Other 09-14-2022 Evaluation note* Encounter Date Diagnosis Assessment Notes Treatment Notes Treatment Clinical Notes Jan, Type 2 diabetes mellitus with hy perglycemia (ICD-10 - E11.65) Managing type 2 diabetes material was published 1. Uncontrolled, Type 2 diabetes with A1C of 8.5% 2. Blood glucose levels improved from last vist a1c 11% 08/23/21. According to [employer] cgm download 01/24/2022-02/06/2022: Avg glucose 200. >250-15%, >180-50%, 70-180-35%, <70-0%, <54-0%. CV 22.6%. Reviewed download with pt, glucose improved, remain above target. Discussed with pt increasing trulicity dose from 1.5 to 3mg once weekly. Pt agreeable. Will send rx request to [facility]. Reviewed with pt how to tirate basal/bolus insulin according to fasting am/ac supper and meal to meal glucose pattern. Pt verbalizes understanding. 3. Patient is alert, oriented and receptive to making changes or counseling. Notes: Seen for an assessment of current glucose pattern, changes in treatment plan, with this timespent in counseling and coordination of care related to diabetes, risks, and benefits of treatment,medications, and side effects. TOPICS REVIEWED: 1. Time was spent reviewing: a. Basic concepts of diabetes, progressive beta cell , concepts of basal/bolus/corrective insulin requirements. Basal: The goal is fasting [...] or sores that do not appear to behealing. 4. Meter: Plan to check blood glucose: [...] diabetes medication issues. 6. Prescriptions: Pap from [facility] for basaglar/humalog/trulicity- increase trulicity to 3mg once weekly. Jan,ietary counseling and surveillance (ICD-10 - Z71.3)Heart healthy diet material was published Jan,HTN (hypertension) (ICD-10 - I10)Managing high blood pressure material was published uncontrolled- f/u with pcp for further recommendation Jan,Long term current use of insulin (ICD-10 - Z79.4) Jan,Hypoglycemia associated with type 2 diabetes mellitus (ICD-10 - E11.649)Diabetes and foot care material was published see above Jan,Mixed hyperlipidemia (ICD-10 - E78.2)Cholesterol-lowering diet material was published 07/2020 ldl 118, trig. 768 on statin 14 Jan,MI 35.0-35.9,adult (ICD-10 - Z68.35)Setting weight-loss goals material was published 5 pound weight loss from last visit, continue with weight loss efforts [facility] Other 07-12-2022 Evaluation note* Encounter Date Diagnosis Assessment Notes Treatment Notes Treatment Clinical Notes Nov, Type 2 diabetes mellitus with hy perglycemia (ICD-10 - E11.65) [facility] Other 03-31-2022 Evaluation note* Encounter Date Diagnosis Assessment Notes Treatment Notes Treatment Clinical Notes Jul, Type 2 diabetes mellitus with hy perglycemia (ICD-10 - E11.65) Managing type 2 diabetes material was published 1. Uncontrolled, Type 2 diabetes with A1C of 11% 2. Blood glucose levels according to [employer] cgm download 08/10/2021-08/23/2021: Avg glucose 231. >250-31%, >180-54%, 70-180-15%, <70-0%, [...] with pt starting glp1. No hx of pancreatitis/mtc/men/retinopathy. Reviewed common s/e of medication. Agreeable to starting trulicity if can get through pap. Reviewed target fasting am/ac m eals 100/150; 2 hours after meal <180, bedtime [...] pattern, changes in treatment plan, with this timespent in counseling and coordination of care related to diabetes, risks, and benefits of treatment,medications, and side effects. TOPICS REVIEWED: 1. Time was spent reviewing: a. Basic concepts of diabetes, progressive beta cell , concepts of basal/bolus/corrective insulin requirements. Basal: The goal is fasting [...] or sores that do not appear to behealing. 4. Meter: Plan to check blood glucose: [...] issues. 6. Prescriptions: Pt getting pap from [facility] for basaglar/humalog. Sample trulicity x2 pens 0.75mg and 1.5mg given- if tolerates will send pap for 1.5mg dose. 7. Referral to school vocational educator 1 month Jul,ietary counseling and surveillance (ICD-10 - Z71.3) Heart healthy diet material was published Jul,HTN (hypertension) (ICD-10 - I10) Managing high blood pressure material was published Jul,Long term current use of insulin (ICD-10 - Z79.4) Jul,Hypoglycemia associated with type 2 diabetes mellitus (ICD-10 - E11.649) Diabetes and foot care material was published see above Jul,Mixed hyperlipidemia (ICD-10 - E78.2) Cholesterol-lowering diet material was published 07/2020 ldl 118, trig. 768 on statin Jul,MI 36.0-36.9,adult (ICD-10 - Z68.36) Setting weight-loss goals material was published see above [facility] Other 11-09-2021 Evaluation note* Encounter Date Diagnosis Assessment Notes Treatment Notes Treatment Clinical Notes Mar, Type 2 diabetes mellitus with hy perglycemia (ICD-10 - E11.65) Managing type 2 diabetes material was published 1. Uncontrolled, Type 2 diabetes with A1C of 11.4% 02/22/21 2. Blood glucose levels according to [employer] cgm download 03/21/2021-04/03/2021: Avg glucose 217. >250-22%, >180-57%, 70-180-21%, <70-0%, [...] pattern, changes in treatment plan, with this timespent in counseling and coordination of care related to diabetes, risks, and benefits of treatment,medications, and side effects. TOPICS REVIEWED: 1. Time was spent reviewing: a. Basic concepts of diabetes, progressive beta cell , concepts of basal/bolus/corrective insulin requirements. Basal: The goal is fasting [...] or sores that do not appear to behealing. 4. Meter: Plan to check blood glucose: [...] issues. 6. Prescriptions: Pt getting pap from [facility] for basaglar/humalog. Mar,Vitamin D deficiency (ICD-10 - E55.9) Vitamin D: let the sun shine material was published 07/2020 Vit. D 26.1 recommend otc vit d 1000 units once daily. Mar,ietary counseling and surveillance (ICD-10 - Z71.3) Heart healthy diet material was published Mar,HTN (hypertension) (ICD-10 - I10) Managing high blood pressure material was published Mar,ong term current use of insulin (ICD-10 - Z79.4) Mar,Hypoglycemia associated with type 2 diabetes mellitus (ICD-10 - E11.649) Diabetes and foot care material was published see above Mar,Mixed hyperlipidemia (ICD-10 - E78.2) Cholesterol-lowering diet material was published 07/2020 ldl 118, trig. 768 on statin Mar,MI 31.0-31.9,adult (ICD-10 - Z68.31) Setting weight-loss goals material was published see above [facility] Other 09-30-2021 Evaluation note* Encounter Date Diagnosis Assessment Notes Treatment Notes Treatment Clinical Notes Jan, Type 2 diabetes mellitus with hy perglycemia (ICD-10 - E11.65) Managing type 2 diabetes material was published 1. Uncontrolled, Type 2 diabetes with A1C of 11.4% 2. Blood glucose levels above target . Pt did not bring armando reader with him today. Has been rationing insulin d/t cost. He was given rx assist application through [employer] will send order for basaglar to take place of lantus and humalog.He did not like taking the ozempic. Reviewed target fasting am/ac meals 100/150; 2 hours after meal<180, bedtime 120/180. 3. Patient is alert, oriented and receptive to making changes or counseling. Notes: Seen for an assessment of current glucose pattern, changes in treatment plan, with this timespent in counseling and coordination of care related to diabetes, risks, and benefits of treatment,medications, and side effects. TOPICS REVIEWED: 1. Time was spent reviewing: a. Basic concepts of diabetes, progressive beta cell , concepts of basal/bolus/corrective insulin requirements. Basal: The goal is fasting [...] or sores that do not appear to behealing. 4. Meter: Plan to check blood glucose: [...] hyperglycemia, or diabetes medication issues. 6. Prescriptions: Daxa pap application given- see above. Jan,Vitamin D deficiency (ICD-10 - E55.9) Vitamin D: let the sun shine material was published 07/2020 Vit. D 26.1 recommend otc vit d 1000 units once daily. Jan,ietary counseling and surveillance (ICD-10 - Z71.3) Heart healthy diet material was published Jan,HTN (hypertension) (ICD-10 - I10) Managing high blood pressure material was published Jan,ong term current use of insulin (ICD-10 - Z79.4) Jan,Hypoglycemia associated with type 2 diabetes mellitus (ICD-10 - E11.649) Diabetes and foot care material was published see above Jan,Mixed hyperlipidemia (ICD-10 - E78.2) Cholesterol-lowering diet material was published 07/2020 ldl 118, trig. 768 on statin- did not start lovaza that was ordered at last visit Jan,MI 30.0-30.9,adult (ICD-10 - Z68.30) Setting weight-loss goals material was published [employer] Other 09-01-2013 History general Narrative - Reported* Type Description Date Medical History PROSTATE CANCER Medical [id number] HistoryGERDMedical HistoryHTNMedical HistoryNEUROPATHY Surgical Historyprostate surgery for cancer01/2013Surgical Historycholecystectomy 2010Surgical Historyhernia [id number] Historycircumcision11/2019 Hospitalization HistorySEE ABOVE SURGERY [employer] Other Consult note Author Giovanni Ni [facility] July 11, 2023 9:05amNote Date/TimeFebruary 2023 9:05[place] [address] Vascular Surgery Consult Note Signed Patient: Chelsea Diego JR MR#: [id number] : 1950 Acct:[id number] Age/Sex: 72 / M Adm Date: 4 Loc: Room: [address] [place] [address] Type: ADM IN Attending Dr: Brennan Cerrato [...] he is recently quit smoking. He did follow- up with Dr. Bautista in the office after the procedure and had a normal vascular study to the left foot. cc:: CC: Brennan Cerrato MD Data of Consult Consult date: 07/11/2023 Requesting Physician: Brennan Cerrato MD [facility] Medical History Diabetes mellitus due to underlying [...] Hypertension Mother Diabetes [facility]: Diagnosed with Stroke Stroke Brother Cancer [...] % (Auto) 84.7 Lymph % (Auto) 6.5 [place] % (Auto) 8.4 Eos % (Auto) 0.3 Baso % (Auto) 0.1 Nucleat RBC Rel Count 0.0 Neut # (Auto) 27.7 H Lymph # (Auto) 2.1 [place] # (Auto) 2.7 H Eos # (Auto) [...] % (Auto) N/A Lymph % (Auto) N/A [place] % (Auto) N/A Eos % (Auto) N/A Baso % (Auto) N/A Nucleat RBC Rel Count N/A Neut # (Auto) N/A Lymph # (Auto) N/A [place] # (Auto) N/A Eos # (Auto) N/A [...] signed by Giovanni Ni MD> 07/11/23 09 [facility] Work Phone: Consult note Author Giovanni Ni [facility] July 11, 2023 9:06amNote Date/TimeFebruary 2023 9:07[place], [place] [address] Vascular Surgery Consult Note Signed Patient: Chelsea Diego JR MR#: [id number] : 1950 Acct:[id number] Age/Sex: 72 / M Adm Date: 4 Loc: Room: [address] [place] [address] Type: ADM IN Attending Dr: Brennan Cerrato MD Copies to: MD Tejas Cruz MD Matthew T Langenberg, MD~ HPI Consult HPI History of present illness: Mr. Diego is a 72 year old male cc:: CC: Brennan Cerrato MD Data of Consult Consult date: 07/11/2023 Requesting Physician: Brennan Cerrato MD [facility] Medical History Diabetes mellitus due to underlying [...] % (Auto) 84.7 Lymph % (Auto) 6.5 [place] % (Auto) 8.4 Eos % (Auto) 0.3 Baso % (Auto) 0.1 Nucleat RBC Rel Count 0.0 Neut # (Auto) 27.7 H Lymph # (Auto) 2.1 [place] # (Auto) 2.7 H Eos # (Auto) [...] % (Auto) N/A Lymph % (Auto) N/A [place] % (Auto) N/A Eos % (Auto) N/A Baso % (Auto) N/A Nucleat RBC Rel Count N/A Neut # (Auto) N/A Lymph # (Auto) N/A [place] # (Auto) N/A Eos # (Auto) N/A [...] factor modification high intensity statin therapy and a ntiplatelets. He understands agrees with the plan. This is explained to him. Documented By: Giovanni Ni MD 07/11/23905 Signed By: <Electronically signed by Giovanni Ni MD> 07/11/23905 [facility] Work Phone: Discharge summary Author Arnaldo Thomas [facility] August 23, 2023 3:39pmNote Date/TimeMarch 2023 3:10[place] [address] Discharge Summary Signed Patient: Chelsea Diego JR MR#: [id number] : 1950 Acct:[id number] Age/Sex: 72 / M Adm Date: 4 Loc: Room: [address] [place] [address]: Arnaldo Thomas MD Copies to: MD Arnaldo Alicea MD~ Providers Date of Discharge: 08/23/23 Discharging Provider: Arnaldo Thomas Primary Care Provider: Tejas Stevens Consults: 08/01/23 08:05 Consult to Nephrology Routine Comment: 4t UC text paged nephrology for consult Consulting Provider: MELVI Maria Nephrology Has Provider Been Notified: Yes Date of Notification: 08/01/23 Time of Notification: 08:15 Reason for Consult: Dialysis Treatment Consult to Pulmonology Routine Comment: 4t text paged pulmonology for consult Consulting Provider: MELVI Sears, [facility] Reason For Exam: sudden dyspnea, intubated Has Provider Been Notified: Yes Date of Notification: 08/01/23 Time of Notification: 08:18 08/01/23 08:07 Consult to Pulmonology Routine Comment: 4t consulted pulmonology for consult Consulting Provider: MELVI Sears, [facility] Reason For Exam: Critical Care Management Has Provider Been Notified: Yes Date of Notification: 08/01/23 Time of Notification: 08:18 08/01/23 08:28 Consult to Dietitian Routine Comment: Reason for Consult: Tube Feeding Recs 08/01/23 08:29 Consult to Cardiology Routine Comment: 4t text paged cardiology for consult Consulting Provider: MELVI Maria Cardiology Reason For Exam: elevated troponin Has [...] Otolaryngology(Head and Neck) Routine Comment: called office [phone] Consulting Provider: Darryl Britt Reason For Exam: consideration of tracheostomy Has Provider Been Notified: Yes Date of Notification: 08/11/23 Time of Notification: 16:27 08/12/23 09:56 Consult to Podiatry Routine Comment: Dr. Tori Juan workday consultant Consulting Provider: Rohan Han Reason For Exam: re-check amputation site. Has Provider Been Notified: Yes Date of Notification: 08/12/23 Time of Notification: 12:38 Extended Comment: Called [phone] office,they are going to call back if [...] was brought to the emergency room at [facility] for shortness of breath. Noted to be in respiratory failure and intubated placed onmechanical ventilator. Patient has a history of diabetes and peripheral vascular disease. He was noted to be anemic with hemoglobin 6.7 and received 2 units packed RBC. Echocardiogram showed normal LV function. While in the hospital he was seen by pulmonary, podiatry, cardiology, nephrology, infectious disease, neurology and ENT services.He was continued on hemodialysis while in the hospital by nephrology service. Stay was complicated due to severe metabolic encephalopathy requiring neurologic evaluation. His mentation has markedly im proved. Patient was extubated on 08/09 but required reintubation later due to mucous plugging. Givenhis persistent respiratory failure patient underwent tracheostomy by ENT service. Currently is on 4hours trach collar andthen pressure support intermittently nocturnal [...] p OR Tracheostomy(Not Applicable) - Darryl Britt, Diagnostic Studies Completed and Pending Studies Pending [...] tenderness Discharge Plan Discharge Plan Patient Disposition: [employer] Acute Care Activity: No Activity Restriction Diet: NPO and Other Additional Instructions: Snf Acute [facility] Hospital to manage care: - Full code [...] buttocks stage 3 pressure injury- Clean with Vasheand pat dry. Therahoney gel to the wound [...] DAILY Qty: 0 0RF Continued (DME) [employer] Armando 2 Sensor Kit MISCELLANEOUS Patient Comments: USE [...] signed by Arnaldo Thomas MD> 08/23/23 1539 [facility] Work Phone: evaluation noteNo [employer] [facility] [employer] Other evaluation noteNo assessment information available [facility] Work Phone: Evaluation note* Diagnosis Onset Date Resolution Status Diabetic foot infection acute [facility] Work Phone: evaluation note* Diagnosis Onset Date Resolution Status Acute hematogenous osteomyelitis, left a nkle and foot [id number] foot infectionacuteDiarrheaacuteHypertension acuteOsteomyelitisacutePAD (peripheral artery disease)acutePseudomonas infection acuteSciatica, left sideacute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acuteVomitingacute [facility] Work Phone: Evaluation note* Diagnosis Foot ulcer, left, with fat layer exposed (CMS/HCC)- 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/HCC) Unspecified peripheral vascular disease Foot ulcer, left, with necrosis of muscle (HCC) ([facility]) documented in this encounter [facility] HealthcareEvaluation note* Diagnosis Onset Date Resolution Status SONYA (acute kidney injury) acuteCellulitis of left oibzcrjybNuzvpowebsyrxakzsNWH-[id number] foot infectionacuteGangrene of left footacuteHypertensionacuteHyperlipemiaacute HyponatremiaacuteLeukocytosisacutePAD (peripheral artery disease)acutePVD (peripheral vascular disease)zcwzgNlnxbgusnfoO6AP (type 2 diabetes mellitus) [facility] Work Phone: Evaluation note* Diagnosis Onset Date Resolution Status SONYA (acute kidney injury) acuteAnemia of renal diseaseacuteHTN (hypertension)acuteHyperlipemiaacute LeukocytosisacutePAD (peripheral artery disease)aqldyP3QP (type 2 diabetes mellitus)acuteCellulitis of left footresolvedConstipationresolvedHyponatremia resolvedSepsisresolvedAcute hypoxic respiratory failureacuteAcute pulmonary edemaacuteAKI (acute kidney injury)acuteAnemia of renal diseaseacuteElevated troponin level not due to acute coronary syndromeacuteEncephalopathyacuteESRD (end stage renal disease)acuteHTN (hypertension)acuteHyperlipemiaacute LeukocytosisacuteOsteomyelitis of left footacutePAD (peripheral artery disease) acuteRespiratory gtjzoempadzkX8GE (type 2 diabetes mellitus)acuteThrombocytosis acuteUlcer of left footacute [facility] Work Phone: Evaluation note* Diagnosis Onset Date Resolution Status Anemia of renal disease acuteHTN (hypertension)acuteHyperlipemiaacutePAD (peripheral artery disease) nvbgoA1DY (type 2 diabetes mellitus)acuteAKI (acute kidney injury)resolved Cellulitis of left footresolvedConstipationresolvedHyponatremiaresolved LeukocytosisresolvedSepsisresolvedAnemia of renal diseaseacuteElevated troponin level not due to acute coronary syndromeacuteESRD (end stage renal disease)acute HTN (hypertension)acuteHyperlipemiaacuteOsteomyelitis of left footacutePAD (peripheral artery disease)acuteRespiratory inttehulblkaX9FW (type 2 diabetes mellitus)acuteThrombocytosisacuteUlcer of left footacuteAcute hypoxic respiratory failureresolvedAcute pulmonary edemaresolvedAKI (acute kidney injury)resolvedEncephalopathyresolvedLeukocytosisresolvedDietary counseling and surveillanceacuteHTN (hypertension)dertpXxvpoxiukokybnzmvV9CK (type 2 diabetes mellitus)acute [facility] Work Phone: Evaluation note* Diagnosis Onset Date Resolution Status SONYA (acute kidney injury) acuteAnemia of renal diseaseacuteHTN (hypertension)acuteHyperlipemiaacutePAD (peripheral artery disease)rulcqJ1RB (type 2 diabetes mellitus)acuteCellulitis of left footresolvedConstipationresolvedHyponatremiaresolvedLeukocytosisresolved SepsisresolvedAKI (acute kidney injury)acuteAnemia of renal diseaseacuteElevated troponin level not due to acute coronary syndromeacuteESRD (end stage renal disease)acuteHTN (hypertension)acuteHyperlipemiaacuteOsteomyelitis of left foot acutePAD (peripheral artery disease)acuteRespiratory umybjeqppkgtP4ZW (type 2 diabetes mellitus)acuteThrombocytosisacuteUlcer of left footacuteAcute hypoxic respiratory failureresolvedAcute pulmonary edemaresolvedEncephalopathyresolved LeukocytosisresolvedBMI 29.0-29.9,adultacuteDietary counseling and surveillance acuteHTN (hypertension)farlzNxurvegkibogjmzoeJ9YZ (type 2 diabetes mellitus) acuteAKI (acute kidney injury)acuteAnemiaacuteDiabetic nephropathy associated with type 2 diabetes mellitusacuteHyperphosphatemiaacutePrimary hypertension vihkzW1MF (type 2 diabetes mellitus)acuteVitamin D deficiencyacute [facility] Work Phone: Evaluation note* Diagnosis Onset Date Resolution Status SONYA (acute kidney injury) acuteAnemia of renal diseaseacuteElevated troponin level not due to acute coronary syndromeacuteESRD (end stage renal disease)acuteHTN (hypertension)acute HyperlipemiaacuteOsteomyelitis of left footacutePAD (peripheral artery disease) acuteRespiratory nyrlfpwhypxxM4HU (type 2 diabetes mellitus)acuteThrombocytosis acuteUlcer of left footacuteAcute hypoxic respiratory failureresolvedAcute pulmonary edemaresolvedEncephalopathyresolvedLeukocytosisresolvedBMI 29.0-29.9,adultacuteDietary counseling and surveillanceacuteHTN (hypertension) tgggvMmuktbfsgzayrfhokE9AJ (type 2 diabetes mellitus)acuteAKI (acute kidney injury)acuteAnemiaacuteDiabetic nephropathy associated with type 2 diabetes mellitusacuteHyperphosphatemiaacutePrimary qbaotuwlibqlvgsdzO5SH (type 2 diabetes mellitus)acuteVitamin D deficiencyacuteHistory of tracheostomyacute Respiratory failureacute [facility] Work Phone: Evaluation note* Diagnosis Onset Date Resolution Status SONYA (acute kidney injury) acuteAnemiaacuteDiabetic nephropathy associated with type 2 diabetes mellitus acuteHyperphosphatemiaacutePrimary ifjfzmpzsuackqbrnY4LL (type 2 diabetes mellitus)acuteVitamin D deficiencyacuteHistory of tracheostomyacuteRespiratory failureacuteBMI 29.0-29.9,adultacuteDietary counseling and surveillanceacuteHTN (hypertension)enlxmXwlkcrdhnlwgxzqimP2AS (type 2 diabetes mellitus)acute [facility] Work Phone: Evaluation note* Diagnosis Onset Date Resolution Status SONYA (acute kidney injury) acuteAnemiaacuteDiabetic nephropathy associated with type 2 diabetes mellitus acuteHyperphosphatemiaacutePrimary jrochctoyiioeoyvuV4NV (type 2 diabetes mellitus)acuteVitamin D deficiencyacuteHistory of tracheostomyacuteRespiratory failureacuteBMI 29.0-29.9,adultacuteDietary counseling and surveillanceacuteHTN (hypertension)rwltiEfyjxeyinvosswswsZ1GU (type 2 diabetes mellitus)acuteAKI (acute kidney injury)acuteAnemiaacuteChronic kidney disease, stage IV (severe) acuteDiabetic nephropathy associated with type 2 diabetes mellitusacute HyperphosphatemiaacutePrimary bcamyxfjcijmbvaaqF8MQ (type 2 diabetes mellitus) acuteVitamin D deficiencyacute [facility] Work Phone: Evaluation note* Diagnosis Other chronic osteomyelitis of left foot ([facility])- Primary Diabetic polyneuropathy associated with type 2 diabetes mellitus ([facility]) Essential hypertension, benign ([facility]) Essential hypertension, benign Type 2 diabetes mellitus with hyperglycemia, with long-term current use of insulin ([facility]) Type 2 diabetes mellitus with diabetic polyneuropathy ([facility]) Chronic heart failure with preserved ejection fraction (HFpEF) ([facility])- Primary Essential hypertension, benign ([facility]) Essential hypertension, benign MICHAEL (obstructive sleep apnea) Obstructive sleep apnea (adult) (pediatric) Type 2 diabetes mellitus with hyperglycemia, with long-term current use of insulin ([facility])- Primary Essential hypertension, benign ([facility]) Essential hypertension, benign Diabetic polyneuropathy associated with type 2 diabetes mellitus ([facility]) Chronic heart failure with preserved ejection fraction (HFpEF) ([facility]) BRYCE (generalized anxiety disorder) ([facility]) Generalized anxiety disorder Primary insomnia Persistent disorder of initiating or maintaining sleep Current episode of major depressive disorder without prior episode, unspecified depression episode severity ([facility]) MDD (major depressive disorder), recurrent episode, moderate ([facility]) Hyperphosphatemia ([facility]) Disorders of phosphorus metabolism CKD stage 3a, GFR 45-59 ml/min ([facility]) Medicare annual wellness visit, subsequent- Primary Current episode of major depressive disorder without prior episode, unspecified depression episode severity ([facility]) Other intervertebral disc degeneration, lumbar region Myoclonus- Primary Primary insomnia Persistent disorder of initiating or maintaining sleep Type 2 diabetes mellitus with diabetic chronic kidney disease ([facility]) Chronic kidney disease, stage 4 (severe) ([facility]) Xerosis cutis- Primary Other specified disease of sebaceous glands History of transmetatarsal amputation of left foot (HCC) (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) Onychomycosis Dermatophytosis of nail Toe pain, right Pain in soft tissues of limb documented in this encounter [facility]* Diagnosis Onset Date Resolution Status Admit Date SONYA (acute kidney injury) acuteNovember 2023 4:19pmAnemiaacuteNovember 2023 4:19pmChronic kidney disease, stage IV (severe)acuteNovember 2023 4:19pmDiabetic nephropathy associated with type 2 diabetes mellitusacuteApril 07, 2024 4:19pmHyperkalemiaacuteApril 07, 2024 4:19pmHyperphosphatemiaacuteNov2023 4:19pmPrimary hypertensionacuteApril 07, 2024 4:00ioR5VQ (type 2 diabetes mellitus)acuteApril 07, 2024 4:19pmVitamin D deficiencyacute April 07, 2024 4:19pm [facility] Work Phone: Evaluation note* Diagnosis Other chronic osteomyelitis of left foot ([facility]/HCC)- Primary Diabetic polyneuropathy associated with type 2 diabetes mellitus ([facility]) Essential hypertension, benign ([facility]) Essential hypertension, benign Type 2 diabetes mellitus with hyperglycemia, with long-term current use of insulin ([facility]) Type 2 diabetes mellitus with diabetic polyneuropathy ([facility]) Chronic heart failure with preserved ejection fraction (HFpEF) ([facility])- Primary Essential hypertension, benign ([facility]) Essential hypertension, benign MICHAEL (obstructive sleep apnea) Obstructive sleep apnea (adult) (pediatric) Type 2 diabetes mellitus with hyperglycemia, with long-term current use of insulin ([facility])- Primary Essential hypertension, benign ([facility]) Essential hypertension, benign Diabetic polyneuropathy associated with type 2 diabetes mellitus ([facility]) Chronic heart failure with preserved ejection fraction (HFpEF) ([facility]) BRYCE (generalized anxiety disorder) ([facility]) Generalized anxiety disorder Primary insomnia Persistent disorder of initiating or maintaining sleep Current episode of major depressive disorder without prior episode, unspecified depression episode severity ([facility]) MDD (major depressive disorder), recurrent episode, moderate ([facility]) Hyperphosphatemia ([facility]) Disorders of phosphorus metabolism CKD stage 3a, GFR 45-59 ml/min ([facility]) Medicare annual wellness visit, subsequent- Primary Current episode of major depressive disorder without prior episode, unspecified depression episode severity ([facility]) Other intervertebral disc degeneration, lumbar region Myoclonus- Primary Primary insomnia Persistent disorder of initiating or maintaining sleep Type 2 diabetes mellitus with diabetic chronic kidney disease ([facility]/HCC) Chronic kidney disease, stage 4 (severe) ([facility]) Diabetic polyneuropathy associated with type 2 diabetes mellitus ([facility]) documented in [facility] encounter [facility]* Diagnosis Other chronic osteomyelitis of left foot ([facility])- Primary Diabetic polyneuropathy associated with type 2 diabetes mellitus ([facility]) Essential hypertension, benign ([facility]) Essential hypertension, benign Type 2 diabetes mellitus with hyperglycemia, with long-term current use of insulin ([facility]) Type 2 diabetes mellitus with diabetic polyneuropathy ([facility]) Chronic heart failure with preserved ejection fraction (HFpEF) ([facility])- Primary Essential hypertension, benign ([facility]) Essential hypertension, benign MICHAEL (obstructive sleep apnea) Obstructive sleep apnea (adult) (pediatric) Type 2 diabetes mellitus with hyperglycemia, with long-term current use of insulin [facility] [facility] Primary Essential hypertension, benign ([facility]) Essential hypertension, benign Diabetic polyneuropathy associated with type 2 diabetes mellitus ([facility]) Chronic heart failure with preserved ejection fraction (HFpEF) ([facility] BRYCE (generalized anxiety disorder) ([facility]) Generalized anxiety disorder Primary insomnia Persistent disorder of initiating or maintaining sleep Current episode of major depressive disorder without prior episode, unspecified depression episode severity ([facility]) MDD (major depressive disorder), recurrent episode, moderate ([facility]) Hyperphosphatemia ([facility]) Disorders of phosphorus metabolism CKD stage 3a, GFR 45-59 ml/min ([facility]) Medicare annual wellness visit, subsequent- Primary Current episode of major depressive disorder without prior episode, unspecified depression episode severity ([facility]) Other intervertebral disc degeneration, lumbar region Myoclonus- Primary Primary insomnia Persistent disorder of initiating or maintaining sleep Type 2 diabetes mellitus with diabetic chronic kidney disease ([facility]) Chronic kidney disease, stage 4 (severe) ([facility]) Essential hypertension, benign ([facility])- Primary Essential hypertension, benign MDD (major depressive disorder), recurrent episode, moderate ([facility]) BRYCE (generalized anxiety disorder) ([facility]) Generalized anxiety disorder Primary insomnia Persistent disorder of initiating or maintaining sleep Chronic heart failure with preserved ejection fraction (HFpEF) ([facility]) Chronic kidney disease, stage IV (severe) ([facility]) Chronic kidney disease, Stage IV (severe) Type 2 diabetes mellitus with hyperglycemia, with long-term current use of insulin ([facility]) documented in this encounter [facility] HealthcareEvaluation note* Diagnosis Medicare annual wellness visit, subsequent- Primary Current episode of major depressive disorder without prior episode, unspecified depression episode severity ([facility]) Other intervertebral disc degeneration, lumbar region documented in this encounter [facility] HealthcareEvaluation note* Diagnosis Myoclonus- Primary Primary insomnia Persistent disorder of initiating or maintaining sleep Type 2 diabetes mellitus with diabetic chronic kidney disease (HCC) ([facility]) Chronic kidney disease, stage 4 (severe) ([facility]) documented in this encounter [facility] HealthcareEvaluation note* Diagnosis Other chronic osteomyelitis of left foot ([facility])- Primary Diabetic polyneuropathy associated with type 2 diabetes mellitus ([facility]) Essential hypertension, benign ([facility]) Essential hypertension, benign Type 2 diabetes mellitus with hyperglycemia, with long-term current use of insulin ([facility] Type 2 diabetes mellitus with diabetic polyneuropathy ([facility] Chronic heart failure with preserved ejection fraction (HFpEF) ([facility])- Primary Essential hypertension, benign ([facility]) Essential hypertension, benign MICHAEL (obstructive sleep apnea) Obstructive sleep apnea (adult) (pediatric) Type 2 diabetes mellitus with hyperglycemia, with long-term current use of insulin ([facility])- Primary Essential hypertension, benign ([facility]) Essential hypertension, benign Diabetic polyneuropathy associated with type 2 diabetes mellitus ([facility]) Chronic heart failure with preserved ejection fraction (HFpEF) ([facility]) BRYCE (generalized anxiety disorder) ([facility]) Generalized anxiety disorder Primary insomnia Persistent disorder of initiating or maintaining sleep Current episode of major depressive disorder without prior episode, unspecified depression episode severity ([facility]) MDD (major depressive disorder), recurrent episode, moderate ([facility]) Hyperphosphatemia ([facility]) Disorders of phosphorus metabolism CKD stage 3a, GFR 45-59 ml/min ([facility]) Medicare annual wellness visit, subsequent- Primary Current episode of major depressive disorder without prior episode, unspecified depression episode severity ([facility]) Other intervertebral disc degeneration, lumbar region Myoclonus- Primary Primary insomnia Persistent disorder of initiating or maintaining sleep Type 2 diabetes mellitus with diabetic chronic kidney disease ([facility]) Chronic kidney disease, stage 4 (severe) ([facility]) Essential hypertension, benign ([facility])- Primary Essential hypertension, benign MDD (major depressive disorder), recurrent episode, moderate ([facility]) BRYCE (generalized anxiety disorder) ([facility]) Generalized anxiety disorder Primary insomnia Persistent disorder of initiating or maintaining sleep Chronic heart [facility] with [facility] (HFpEF) [facility] Chronic kidney disease, stage IV (severe) ([facility]) Chronic kidney disease, Stage IV (severe) Type 2 diabetes mellitus with hyperglycemia, with long-term current use of insulin ([facility]) Diabetic polyneuropathy associated with type 2 diabetes mellitus ([facility])- Primary documented in this encounter [facility] HealthcareEvaluation note* Diagnosis Prostate cancer ([facility])- Primary Malignant neoplasm of prostate documented [facility]* Diagnosis Other chronic osteomyelitis of left foot ([facility])- Primary Diabetic polyneuropathy associated with type 2 diabetes mellitus ([facility]) Essential hypertension, benign ([facility]) Essential hypertension, benign Type 2 diabetes mellitus with hyperglycemia, with long-term current use of insulin ([facility]) Type 2 diabetes mellitus with diabetic polyneuropathy ([facility] Chronic heart failure with preserved ejection fraction (HFpEF) ([facility])- Primary Essential hypertension, benign ([facility]) Essential hypertension, benign MICHAEL (obstructive sleep apnea) Obstructive sleep apnea (adult) (pediatric) Type 2 diabetes mellitus with hyperglycemia, with long-term current use of insulin ([facility])- Primary Essential hypertension, benign ([facility]) Essential hypertension, benign Diabetic polyneuropathy associated with type 2 diabetes mellitus ([facility]) Chronic heart failure with preserved ejection fraction (HFpEF) ([facility]) BRYCE (generalized anxiety disorder) ([facility]) Generalized anxiety disorder Primary insomnia Persistent disorder of initiating or maintaining sleep Current episode of major depressive disorder without prior episode, unspecified depression episode severity ([facility]) MDD (major depressive disorder), recurrent episode, moderate ([facility]) Hyperphosphatemia ([facility]) Disorders of phosphorus metabolism CKD stage 3a, GFR 45-59 ml/min ([facility]) Medicare annual wellness visit, subsequent- Primary Current episode of major depressive disorder without prior episode, unspecified depression episode severity ([facility]) Other intervertebral disc degeneration, lumbar region Myoclonus- Primary Primary insomnia Persistent disorder of initiating or maintaining sleep Type 2 diabetes mellitus with diabetic chronic kidney disease ([facility]) Chronic kidney disease, stage 4 (severe) ([facility]) Essential hypertension, benign ([facility])- Primary Essential hypertension, benign MDD (major depressive disorder), recurrent episode, moderate ([facility]) BRYCE (generalized anxiety disorder) ([facility]) Generalized anxiety disorder Primary insomnia Persistent disorder of initiating or maintaining sleep Chronic heart failure with preserved ejection fraction (HFpEF) ([facility]) Chronic kidney disease, stage IV (severe) ([facility]) Chronic kidney disease, Stage IV (severe) Type 2 diabetes mellitus with hyperglycemia, with long-term current use of insulin ([facility]) Diabetic polyneuropathy associated with type 2 diabetes mellitus ([facility]) documented in this encounter [facility] HealthcareEvaluation note* Diagnosis Other chronic osteomyelitis of left foot ([facility])- Primary Diabetic polyneuropathy associated with type 2 diabetes mellitus ([facility]) Essential hypertension, benign ([facility]) Essential hypertension, benign Type 2 diabetes mellitus with hyperglycemia, with long-term current use of insulin ([facility]) Type 2 diabetes mellitus with diabetic polyneuropathy ([facility] Chronic heart failure with preserved ejection fraction (HFpEF) ([facility])- Primary Essential hypertension, benign ([facility]) Essential hypertension, benign MICHAEL (obstructive sleep apnea) Obstructive sleep apnea (adult) (pediatric) Type 2 diabetes mellitus with hyperglycemia, with long-term current use of insulin ([facility])- Primary Essential hypertension, benign ([facility]) Essential hypertension, benign Diabetic polyneuropathy associated with type 2 diabetes mellitus ([facility]) Chronic heart failure with preserved ejection fraction (HFpEF) ([facility]) BRYCE (generalized anxiety disorder) ([facility]) Generalized anxiety disorder Primary insomnia Persistent disorder of initiating or maintaining sleep Current episode of major depressive disorder without prior episode, unspecified depression episode severity ([facility]) MDD (major depressive disorder), recurrent episode, moderate ([facility]) Hyperphosphatemia ([facility]) Disorders of phosphorus metabolism CKD stage 3a, GFR 45-59 ml/min ([facility]) Medicare annual wellness visit, subsequent- Primary Current episode of major depressive disorder without prior episode, unspecified depression episode severity ([facility]) Other intervertebral disc degeneration, lumbar region Myoclonus- Primary Primary insomnia Persistent disorder of initiating or maintaining sleep Type 2 diabetes mellitus with diabetic chronic kidney disease ([facility]) Chronic kidney disease, stage 4 (severe) ([facility]) Essential hypertension, benign ([facility])- Primary Essential hypertension, benign MDD (major depressive disorder), recurrent episode, moderate ([facility]) BRYCE (generalized anxiety disorder) ([facility]) Generalized anxiety disorder Primary insomnia Persistent disorder of initiating or maintaining sleep Chronic heart failure with preserved ejection fraction (HFpEF) ([facility]) Chronic kidney disease, stage IV (severe) ([facility]) Chronic kidney disease, Stage IV (severe) Type 2 diabetes mellitus with hyperglycemia, with long-term current use of insulin (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)- Primary Onychomycosis Dermatophytosis of nail Toe pain, right Pain in soft tissues of limb History of transmetatarsal amputation of left foot (HCC) ([facility]) Xerosis cutis Other specified disease of sebaceous glands Acquired deformity of right toe documented in this encounter [facility] HealthcareEvaluation note* Diagnosis Other chronic osteomyelitis of left foot- Primary Diabetic polyneuropathy associated with type 2 diabetes mellitus ([facility]) Essential hypertension, benign ([facility]) Essential hypertension, benign Type 2 diabetes mellitus with hyperglycemia, with long-term current use of insulin ([facility]) Type 2 diabetes mellitus with diabetic polyneuropathy ([facility] Chronic heart failure with preserved ejection fraction (HFpEF) ([facility])- Primary Essential hypertension, benign ([facility]) Essential hypertension, benign MICHAEL (obstructive sleep apnea) Obstructive sleep apnea (adult) (pediatric) Type 2 diabetes mellitus with hyperglycemia, with long-term current use of insulin ([facility])- Primary Essential hypertension, benign ([facility]) Essential hypertension, benign Diabetic polyneuropathy associated with type 2 diabetes mellitus ([facility]) Chronic heart failure with preserved ejection fraction (HFpEF) ([facility]) BRYCE (generalized anxiety disorder) ([facility]) Generalized anxiety disorder Primary insomnia Persistent disorder of initiating or maintaining sleep Current episode of major depressive disorder without prior episode, unspecified depression episode severity ([facility]) MDD (major depressive disorder), recurrent episode, moderate ([facility]) Hyperphosphatemia ([facility]) Disorders of phosphorus metabolism CKD stage 3a, GFR 45-59 ml/min ([facility]) Medicare annual wellness visit, subsequent- Primary Current episode of major depressive disorder without prior episode, unspecified depression episode severity ([facility]) Other intervertebral disc degeneration, lumbar region Myoclonus- Primary Primary insomnia Persistent disorder of initiating or maintaining sleep Type 2 diabetes mellitus with diabetic chronic kidney disease ([facility]) Chronic kidney disease, stage 4 (severe) ([facility]) Essential hypertension, benign ([facility])- Primary Essential hypertension, benign MDD (major depressive disorder), recurrent episode, moderate ([facility]) BRYCE (generalized anxiety disorder) ([facility]) Generalized anxiety disorder Primary insomnia Persistent disorder of initiating or maintaining sleep Chronic heart failure with preserved ejection fraction (HFpEF) ([facility]) Chronic kidney disease, stage IV (severe) ([facility]) Chronic kidney disease, Stage IV (severe) Type 2 diabetes mellitus with hyperglycemia, with long-term current use of insulin ([facility]) Diabetic polyneuropathy associated with type 2 diabetes mellitus ([facility]) documented in this encounter [facility] HealthcareEvaluation note* Diagnosis Other chronic osteomyelitis of left foot- Primary Diabetic polyneuropathy associated with type 2 diabetes mellitus ([facility]) Essential hypertension, benign ([facility]) Essential hypertension, benign Type 2 diabetes mellitus with hyperglycemia, with long-term current use of insulin ([facility]) Type 2 diabetes mellitus with diabetic polyneuropathy ([facility] Chronic heart failure with preserved ejection fraction (HFpEF) ([facility])- Primary Essential hypertension, benign ([facility]) Essential hypertension, benign MICHAEL (obstructive sleep apnea) Obstructive sleep apnea (adult) (pediatric) Type 2 diabetes mellitus with hyperglycemia, with long-term current use of insulin ([facility])- Primary Essential hypertension, benign ([facility]) Essential hypertension, benign Diabetic polyneuropathy associated with type 2 diabetes mellitus ([facility]) Chronic heart failure with preserved ejection fraction (HFpEF) ([facility]) BRYCE (generalized anxiety disorder) ([facility]) Generalized anxiety disorder Primary insomnia Persistent disorder of initiating or maintaining sleep Current episode of major depressive disorder without prior episode, unspecified depression episode severity ([facility]) MDD (major depressive disorder), recurrent episode, moderate ([facility]) Hyperphosphatemia ([facility]) Disorders of phosphorus metabolism CKD stage 3a, GFR 45-59 ml/min ([facility]) Medicare annual wellness visit, subsequent- Primary Current episode of major depressive disorder without prior episode, unspecified depression episode severity ([facility]) Other intervertebral disc degeneration, lumbar region Myoclonus- Primary Primary insomnia Persistent disorder of initiating or maintaining sleep Type 2 diabetes mellitus with diabetic chronic kidney disease ([facility]) Chronic kidney disease, stage 4 (severe) ([facility]) Essential hypertension, benign ([facility] Primary Essential hypertension, benign MDD (major depressive disorder), recurrent episode, moderate ([facility]) BRYCE (generalized anxiety disorder) ([facility]) Generalized anxiety disorder Primary insomnia Persistent disorder of initiating or maintaining sleep Chronic heart failure with preserved ejection fraction (HFpEF) ([facility]) Chronic kidney disease, stage IV (severe) ([facility]) Chronic kidney disease, Stage IV (severe) Type 2 diabetes mellitus with hyperglycemia, with long-term current use of insulin ([facility]) Essential hypertension, benign ([facility])- Primary Essential hypertension, benign Diabetic polyneuropathy associated with type 2 diabetes mellitus ([facility]) MDD (major depressive disorder), recurrent episode, moderate ([facility]) BRYCE (generalized anxiety disorder) ([facility] Generalized anxiety disorder Chronic heart failure with preserved ejection fraction (HFpEF) ([facility]) CKD stage 3b, GFR 30-44 ml/min ([facility]) Primary insomnia Persistent disorder of initiating or maintaining sleep Type 2 diabetes mellitus with hyperglycemia, with long-term current use of insulin [facility] [facility]) Vitreous hemorrhage, right eye ([facility]) Vitreous hemorrhage Type 2 diabetes mellitus with diabetic chronic kidney disease ([facility]) Chronic heart failure with preserved ejection fraction (HFpEF) ([facility]) documented in this encounter [facility] HealthcareEvaluation note* Diagnosis Other chronic osteomyelitis of left foot (HCC)- Primary Diabetic polyneuropathy associated with type 2 diabetes mellitus ([facility]) Essential hypertension, benign Essential hypertension, benign Type 2 diabetes mellitus with hyperglycemia, with long-term current use of insulin ([facility]) Type 2 diabetes mellitus with diabetic polyneuropathy (HCC) Chronic heart failure with preserved ejection fraction (HFpEF) (HCC)- Primary Essential hypertension, benign Essential hypertension, benign MICHAEL (obstructive sleep apnea) Obstructive sleep apnea (adult) (pediatric) Type 2 diabetes mellitus with hyperglycemia, with long-term current use of insulin ([facility])- Primary Essential hypertension, benign Essential hypertension, benign Diabetic polyneuropathy associated with type 2 diabetes mellitus ([facility]) Chronic heart failure with preserved ejection fraction (HFpEF) ([facility]) BRYCE (generalized anxiety disorder) Generalized anxiety disorder Primary insomnia Persistent disorder of initiating or maintaining sleep Current episode of major depressive disorder without prior episode, unspecified depression episode severity MDD (major depressive disorder), recurrent episode, moderate ([facility]) Hyperphosphatemia Disorders of phosphorus metabolism CKD stage 3a, GFR 45-59 ml/min ([facility]) Medicare annual wellness visit, subsequent- Primary Current episode of major depressive disorder without prior episode, unspecified depression episode severity Other intervertebral disc degeneration, lumbar region Myoclonus- Primary Primary insomnia Persistent disorder of initiating or maintaining sleep Type 2 diabetes mellitus with diabetic chronic kidney disease ([facility]) Chronic kidney disease, stage 4 (severe) ([facility]) Essential hypertension, benign- Primary Essential hypertension, benign MDD (major depressive disorder), recurrent episode, moderate ([facility]) BRYCE (generalized anxiety disorder) Generalized anxiety disorder Primary insomnia Persistent disorder of initiating or maintaining sleep Chronic heart failure with preserved ejection fraction (HFpEF) ([facility]) Chronic kidney disease, stage IV (severe) (HCC) Chronic kidney disease, Stage IV (severe) Type 2 diabetes mellitus with hyperglycemia, with long-term current use of insulin ([facility]) Essential hypertension, benign- Primary Essential hypertension, benign Diabetic polyneuropathy associated with type 2 diabetes mellitus ([facility]) MDD (major depressive disorder), recurrent episode, moderate ([facility]) BRYCE (generalized anxiety disorder) Generalized anxiety disorder Chronic heart failure with preserved ejection fraction (HFpEF) ([facility]) CKD stage 3b, GFR 30-44 ml/min ([facility]) Primary insomnia Persistent disorder of initiating or maintaining sleep Type 2 diabetes mellitus with hyperglycemia, with long-term current use of insulin ([facility]) Vitreous hemorrhage, right eye (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 ([facility])- Primary Onychomycosis Dermatophytosis of nail Toe pain, right Pain in soft tissues of limb History of transmetatarsal amputation of left foot ([facility]) Xerosis cutis Other specified disease of sebaceous glands documented in this encounter [facility] HealthcareEvaluation note* Diagnosis Other chronic osteomyelitis of left foot ([facility])- Primary Diabetic polyneuropathy associated with type 2 diabetes mellitus ([facility]) Essential hypertension, benign Essential hypertension, benign Type 2 diabetes mellitus with hyperglycemia, with long-term current use of insulin ([facility]) Type 2 diabetes mellitus with diabetic polyneuropathy ([facility]) Chronic heart failure with preserved ejection fraction (HFpEF) (HCC)- Primary Essential hypertension, benign Essential hypertension, benign MICHAEL (obstructive sleep apnea) Obstructive sleep apnea (adult) (pediatric) Type 2 diabetes mellitus with hyperglycemia, with long-term current use of insulin ([facility])- Primary Essential hypertension, benign Essential hypertension, benign Diabetic polyneuropathy associated with type 2 diabetes mellitus ([facility]) Chronic heart failure with preserved ejection fraction (HFpEF) ([facility]) BRYCE (generalized anxiety disorder) Generalized anxiety disorder Primary insomnia Persistent disorder of initiating or maintaining sleep Current episode of major depressive disorder without prior episode, unspecified depression episode severity MDD (major depressive disorder), recurrent episode, moderate ([facility]) Hyperphosphatemia Disorders of phosphorus metabolism CKD stage 3a, GFR 45-59 ml/min ([facility]) Medicare annual wellness visit, subsequent- Primary Current episode of major depressive disorder without prior episode, unspecified depression episode severity Other intervertebral disc degeneration, lumbar region Myoclonus- Primary Primary insomnia Persistent disorder of initiating or maintaining sleep Type 2 diabetes mellitus with diabetic chronic kidney disease ([facility]) Chronic kidney disease, stage 4 (severe) ([facility]) Essential hypertension, benign- Primary Essential hypertension, benign MDD (major depressive disorder), recurrent episode, moderate ([facility]) BRYCE (generalized anxiety disorder) Generalized anxiety disorder Primary insomnia Persistent disorder of initiating or maintaining sleep Chronic heart failure with preserved ejection fraction (HFpEF) ([facility]) Chronic kidney disease, stage IV (severe) ([facility]) Chronic kidney disease, Stage IV (severe) Type 2 diabetes mellitus with hyperglycemia, with long-term current use of insulin ([facility]) Essential hypertension, benign- Primary Essential hypertension, benign Diabetic polyneuropathy associated with type 2 diabetes mellitus ([facility]) MDD (major depressive disorder), recurrent episode, moderate ([facility]) BRYCE (generalized anxiety disorder) Generalized anxiety disorder Chronic heart failure with preserved ejection fraction (HFpEF) ([facility]) CKD stage 3b, GFR 30-44 ml/min ([facility]) Primary insomnia Persistent disorder of initiating or maintaining sleep Type 2 diabetes mellitus with hyperglycemia, with long-term current use of insulin ([facility]) Vitreous hemorrhage, right eye ([facility]) Vitreous hemorrhage Type 2 diabetes mellitus with diabetic chronic kidney disease ([facility]) Essential hypertension, benign Essential hypertension, benign MDD (major depressive disorder), recurrent episode, moderate ([facility]) Diabetic polyneuropathy associated with type 2 diabetes mellitus ([facility]) documented in this encounter [facility] HealthcareEvaluation note* Diagnosis Other chronic osteomyelitis of left foot ([facility])- Primary Diabetic polyneuropathy associated with type 2 diabetes mellitus ([facility]) Essential hypertension, benign Essential hypertension, benign Type 2 diabetes mellitus with hyperglycemia, with long-term current use of insulin ([facility]) Type 2 diabetes mellitus with diabetic polyneuropathy ([facility]) Chronic heart failure with preserved ejection fraction (HFpEF) ([facility])- Primary Essential hypertension, benign Essential hypertension, benign MICHAEL (obstructive sleep apnea) Obstructive sleep apnea (adult) (pediatric) Type 2 diabetes mellitus with hyperglycemia, with long-term current use of insulin (HCC)- Primary Essential hypertension, benign Essential hypertension, benign Diabetic polyneuropathy associated with type 2 diabetes mellitus ([facility]) Chronic heart failure with preserved ejection fraction (HFpEF) ([facility]) BRYCE (generalized anxiety disorder) Generalized anxiety disorder Primary insomnia Persistent disorder of initiating or maintaining sleep Current episode of major depressive disorder without prior episode, unspecified depression episode severity MDD (major depressive disorder), recurrent episode, moderate ([facility]) Hyperphosphatemia Disorders of phosphorus metabolism CKD stage 3a, GFR 45-59 ml/min ([facility]) Medicare annual wellness visit, subsequent- Primary Current episode of major depressive disorder without prior episode, unspecified depression episode severity Other intervertebral disc degeneration, lumbar region Myoclonus- Primary Primary insomnia Persistent disorder of initiating or maintaining sleep Type 2 diabetes mellitus with diabetic chronic kidney disease (HCC) Chronic kidney disease, stage 4 (severe) ([facility]) Essential hypertension, benign- Primary Essential hypertension, benign MDD (major depressive disorder), recurrent episode, moderate ([facility]) BRYCE (generalized anxiety disorder) Generalized anxiety disorder Primary insomnia Persistent disorder of initiating or maintaining sleep Chronic heart failure with preserved ejection fraction (HFpEF) ([facility]) Chronic kidney disease, stage IV (severe) ([facility]) Chronic kidney disease, Stage IV (severe) Type 2 diabetes mellitus with hyperglycemia, with long-term current use of insulin ([facility]) Essential hypertension, benign- Primary Essential hypertension, benign Diabetic polyneuropathy associated with type 2 diabetes mellitus ([facility]) MDD (major depressive disorder), recurrent episode, moderate ([facility]) BRYCE (generalized anxiety disorder) Generalized anxiety disorder Chronic heart failure with preserved ejection fraction (HFpEF) ([facility]) CKD stage 3b, GFR 30-44 ml/min ([facility]) Primary insomnia Persistent disorder of initiating or maintaining sleep Type 2 diabetes mellitus with hyperglycemia, with long-term current use of insulin ([facility]) Vitreous hemorrhage, right eye ([facility]) Vitreous hemorrhage Type 2 diabetes mellitus with diabetic chronic kidney disease ([facility]) Diabetic polyneuropathy associated with type 2 diabetes mellitus ([facility]) documented in this encounter [facility] HealthcareEvaluation note* Diagnosis Other chronic osteomyelitis of left foot (HCC)- Primary Diabetic polyneuropathy associated with type 2 diabetes mellitus ([facility]) Essential hypertension, benign Essential hypertension, benign Type 2 diabetes mellitus with hyperglycemia, with long-term current use of insulin ([facility]) Type 2 diabetes mellitus with diabetic polyneuropathy (HCC) Chronic heart failure with preserved ejection fraction (HFpEF) (HCC)- Primary Essential hypertension, benign Essential hypertension, benign MICHAEL (obstructive sleep apnea) Obstructive sleep apnea (adult) (pediatric) Type 2 diabetes mellitus with hyperglycemia, with long-term current use of insulin ([facility])- Primary Essential hypertension, benign Essential hypertension, benign Diabetic polyneuropathy associated with type 2 diabetes mellitus (HCC) Chronic heart failure with preserved ejection fraction (HFpEF) ([facility]) BRYCE (generalized anxiety disorder) Generalized anxiety disorder Primary insomnia Persistent disorder of initiating or maintaining sleep Current episode of major depressive disorder without prior episode, unspecified depression episode severity MDD (major depressive disorder), recurrent episode, moderate ([facility]) Hyperphosphatemia Disorders of phosphorus metabolism CKD stage 3a, GFR 45-59 ml/min ([facility]) Medicare annual wellness visit, subsequent- Primary Current episode of major depressive disorder without prior episode, unspecified depression episode severity Other intervertebral disc degeneration, lumbar region Myoclonus- Primary Primary insomnia Persistent disorder of initiating or maintaining sleep Type 2 diabetes mellitus with diabetic chronic kidney disease ([facility]) Chronic kidney disease, stage 4 (severe) ([facility]) Essential hypertension, benign- Primary Essential hypertension, benign MDD (major depressive disorder), recurrent episode, moderate ([facility]) BRYCE (generalized anxiety disorder) Generalized anxiety disorder Primary insomnia Persistent disorder of initiating or maintaining sleep Chronic heart failure with preserved ejection fraction (HFpEF) ([facility]) Chronic kidney disease, stage IV (severe) ([facility]) Chronic kidney disease, Stage IV (severe) Type 2 diabetes mellitus with hyperglycemia, with long-term current use of insulin ([facility]) Essential hypertension, benign- Primary Essential hypertension, benign Diabetic polyneuropathy associated with type 2 diabetes mellitus ([facility]) MDD (major depressive disorder), recurrent episode, moderate ([facility]) BRYCE (generalized anxiety disorder) Generalized anxiety disorder Chronic heart failure with preserved ejection fraction (HFpEF) ([facility]) CKD stage 3b, GFR 30-44 ml/min ([facility]) Primary insomnia Persistent disorder of initiating or maintaining sleep Type 2 diabetes mellitus with hyperglycemia, with long-term current use of insulin ([facility]) Vitreous hemorrhage, right eye ([facility]) Vitreous hemorrhage Type 2 diabetes mellitus with diabetic chronic kidney disease ([facility]) Transient ischemic attack- Primary Unspecified transient cerebral ischemia Stenosis of both internal carotid arteries Type 2 diabetes mellitus with hyperglycemia, with long-term current use of insulin ([facility]) Essential hypertension, benign Essential hypertension, benign documented in this encounter [facility] HealthcareEvaluation note* Diagnosis Other chronic osteomyelitis of left foot (HCC)- Primary Diabetic polyneuropathy associated with type 2 diabetes mellitus (HCC) Essential hypertension, benign Essential hypertension, benign Type 2 diabetes mellitus with hyperglycemia, with long-term current use of insulin (HCC) Type 2 diabetes mellitus with diabetic polyneuropathy (HCC) Chronic heart failure with preserved ejection fraction (HFpEF) (HCC)- Primary Essential hypertension, benign Essential hypertension, benign MICHAEL (obstructive sleep apnea) Obstructive sleep apnea (adult) (pediatric) Type 2 diabetes mellitus with hyperglycemia, with long-term current use of insulin (HCC)- Primary Essential hypertension, benign Essential hypertension, benign Diabetic polyneuropathy associated with type 2 diabetes mellitus (HCC) Chronic heart failure with preserved ejection fraction (HFpEF) ([facility]) BRYCE (generalized anxiety disorder) Generalized anxiety disorder Primary insomnia Persistent disorder of initiating or maintaining sleep Current episode of major depressive disorder without prior episode, unspecified depression episode severity MDD (major depressive disorder), recurrent episode, moderate ([facility]) Hyperphosphatemia Disorders of phosphorus metabolism CKD stage 3a, GFR 45-59 ml/min ([facility]) Medicare annual wellness visit, subsequent- Primary Current episode of major depressive disorder without prior episode, unspecified depression episode severity Other intervertebral disc degeneration, lumbar region Myoclonus- Primary Primary insomnia Persistent disorder of initiating or maintaining sleep Type 2 diabetes mellitus with diabetic chronic kidney disease (HCC) Chronic kidney disease, stage 4 (severe) ([facility]) Essential hypertension, benign- Primary Essential hypertension, benign MDD (major depressive disorder), recurrent episode, moderate ([facility]) BRYCE (generalized anxiety disorder) Generalized anxiety disorder Primary insomnia Persistent disorder of initiating or maintaining sleep Chronic heart failure with preserved ejection fraction (HFpEF) ([facility]) Chronic kidney disease, stage IV (severe) (HCC) Chronic kidney disease, Stage IV (severe) Type 2 diabetes mellitus with hyperglycemia, with long-term current use of insulin ([facility]) Essential hypertension, benign- Primary Essential hypertension, benign Diabetic polyneuropathy associated with type 2 diabetes mellitus ([facility]) MDD (major depressive disorder), recurrent episode, moderate ([facility]) BRYCE (generalized anxiety disorder) Generalized anxiety disorder Chronic heart failure with preserved ejection fraction (HFpEF) ([facility]) CKD stage 3b, GFR 30-44 ml/min ([facility]) Primary insomnia Persistent disorder of initiating or maintaining sleep Type 2 diabetes mellitus with hyperglycemia, with long-term current use of insulin ([facility]) Vitreous hemorrhage, right eye ([facility]) Vitreous hemorrhage Type 2 diabetes mellitus with diabetic chronic kidney disease (HCC) Transient ischemic attack- Primary Unspecified transient cerebral ischemia Stenosis of both internal carotid arteries Type 2 diabetes mellitus with hyperglycemia, with long-term current use of insulin (HCC) Essential hypertension, benign Essential hypertension, benign Diabetic polyneuropathy associated with type 2 diabetes mellitus (HCC) MDD (major depressive disorder), recurrent episode, moderate (HCC) Essential hypertension, benign Essential hypertension, benign documented in this encounter [facility] HealthcareEvaluation note* Diagnosis Prostate cancer (CMS-HCC)- Primary Malignant neoplasm of prostate Phimosis Redundant prepuce and phimosis Prostate cancer (CMS-HCC)- Primary Malignant neoplasm of prostate Phimosis Redundant prepuce and phimosis Phimosis- Primary Redundant prepuce and phimosis Prostate cancer (CMS-HCC) Malignant neoplasm of prostate Prostate cancer (CMS-HCC)- Primary Malignant neoplasm of prostate Prostate cancer (CMS-HCC)- Primary Malignant neoplasm of prostate Prostate cancer ([facility])- Primary Malignant neoplasm of prostate TIA (transient ischemic attack)- Primary Unspecified transient cerebral ischemia documented [facility]* Diagnosis Other chronic osteomyelitis of left foot (HCC)- Primary Diabetic polyneuropathy associated with type 2 diabetes mellitus (HCC) Essential hypertension, benign Essential hypertension, benign Type 2 diabetes mellitus with hyperglycemia, with long-term current use of insulin (HCC) Type 2 diabetes mellitus with diabetic polyneuropathy (HCC) Chronic heart failure with preserved ejection fraction (HFpEF) (HCC)- Primary Essential hypertension, benign Essential hypertension, benign MICHAEL (obstructive sleep apnea) Obstructive sleep apnea (adult) (pediatric) Type 2 diabetes mellitus with hyperglycemia, with long-term current use of insulin (HCC)- Primary Essential hypertension, benign Essential hypertension, benign Diabetic polyneuropathy associated with type 2 diabetes mellitus (HCC) Chronic heart failure with preserved ejection fraction (HFpEF) (HCC) BRYCE (generalized anxiety disorder) Generalized anxiety disorder Primary insomnia Persistent disorder of initiating or maintaining sleep Current episode of major depressive disorder without prior episode, unspecified depression episode severity MDD (major depressive disorder), recurrent episode, moderate (HCC) Hyperphosphatemia Disorders of phosphorus metabolism CKD stage 3a, GFR 45-59 ml/min ([facility]) Medicare annual wellness visit, subsequent- Primary Current episode of major depressive disorder without prior episode, unspecified depression episode severity Other intervertebral disc degeneration, lumbar region Myoclonus- Primary Primary insomnia Persistent disorder of initiating or maintaining sleep Type 2 diabetes mellitus with diabetic chronic kidney disease (HCC) Chronic kidney disease, stage 4 (severe) ([facility]) Essential hypertension, benign- Primary Essential hypertension, benign MDD (major depressive disorder), recurrent episode, moderate (HCC) BRYCE (generalized anxiety disorder) Generalized anxiety disorder Primary insomnia Persistent disorder of initiating or maintaining sleep Chronic heart failure with preserved ejection fraction (HFpEF) ([facility]) Chronic kidney disease, stage IV (severe) ([facility]) Chronic kidney disease, Stage IV (severe) Type 2 diabetes mellitus with hyperglycemia, with long-term current use of insulin ([facility]) Essential hypertension, benign- Primary Essential hypertension, benign Diabetic polyneuropathy associated with type 2 diabetes mellitus ([facility]) MDD (major depressive disorder), recurrent episode, moderate ([facility]) BRYCE (generalized anxiety disorder) Generalized anxiety disorder Chronic heart failure with preserved ejection fraction (HFpEF) ([facility]) CKD stage 3b, GFR 30-44 ml/min ([facility]) Primary insomnia Persistent disorder of initiating or maintaining sleep Type 2 diabetes mellitus with hyperglycemia, with long-term current use of insulin ([facility]) Vitreous hemorrhage, right eye (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 ([facility])- Primary Onychomycosis Dermatophytosis of nail Toe pain, right Pain in soft tissues of limb History of transmetatarsal amputation of left foot ([facility]) documented in this encounter [facility] HealthcareHistory and physical note Author Rohan Han [facility] July 11, 2023 8:33amNote Date/TimeFebruary 2023 8:33[place] [address] Podiatry H&P Signed Patient: Chelsea Diego JR MR#: [id number] : 1950 Acct:[id number] Age/Sex: 72 / M Adm Date: 4 Loc: 3T Room: [address] [place] [address] Type: ADM IN Attending Dr: Brennan Cerrato [...] a left fourth and fifth metatarsal resection withnonhealing ulceration and has had healing ulceration since [...] 3 months ago and last admission to [facility]. Patient seen today for condition unrelated to prior procedure. Review of Systems Constitutional Constitutional: Reports body ache(s), Reports fever(s) and Reports night sweats Cardiovascular Comments: Denies chest pain shortness of breath or irregular rhythm Gastrointestinal Comments: Denies abdominal pain loose stool Musculoskeletal Comments: States pain to the left foot and history of degenerative disc disease of the back [facility] Medical History (Updated 07/11/23 @ 08:32 by [...] [History Confirmed 07/10/23] flash glucose sensor (FreeStyle Armando 2 Sensor kit) 01/13/23 [History Confirmed 02/23/23] [...] no significant findings of osteolysis osteomyelitis however uponfurther inspection by myself notable small osteolyticchanges noted first this metatarsal head with possible sinus tract extending to the left first MPJ noted. Small subcutaneous air seen on the AP vie w near the lateral aspect of the first [...] further infection/scar/poor wound healing/nerve damage/cardiovascular issues including DVT/PE/PR/TIA and loss of digit/limb/or life. Pt consents [...] surgery today Documented By: Rohan Han DPM 07/11/23823 Signed By: <Electronically signed by TOY Han> 07/11/23 0833 [facility] Work Phone: Hisjkin general Narrative - Reported* Type Description Date Medical History PROSTATE CANCER Medical JnecfafDC3Lylnvfi HistoryGERDMedical HistoryHTNMedical HistoryNEUROPATHY Medical HistoryBells PalsySurgical Historyprostate surgery for cancer01/2013 Surgical Afvvvltwxdmtngmhaoxsdo0974Xxwblvbl Historyhernia uhtvuo9332Alorzkxv Historycircumcision/2019Hospitalization HistorySEE Appurify Other Hishrlo general Narrative - Reported* Type Description Date Medical History PROSTATE CANCER Medical YipqnevYR5Ktkyaix HistoryGERDMedical HistoryHTNMedical HistoryNEUROPATHY Medical HistoryBells PalsySurgical Historyprostate surgery for cancer01/2013 Surgical Ghviedvuhgnevdgumyyymj6557Gwfmfgld Historyhernia tpxwbj0175Nrbrwvlo Historycircumcision/2019Surgical HistoryBILATERAL CATARACT ATZFBIX39/2022 & 05/2022Hospitalization HistorySEE ABOVE [facility] Other history general Narrative - Reported* Type Description Date Medical History PROSTATE CANCER Medical WkmjfaoFO2Fzbsmma HistoryGERDMedical HistoryHTNMedical HistoryNEUROPATHY Medical HistoryBells PalsySurgical Historyprostate surgery for cancer01/2013 Surgical Ycdkplwhbczmudocwougtf0036Bqitntfk Historyhernia kqfgsn8696Ejhffboc Historycircumcision/2019Surgical HistoryBILATERAL CATARACT YQOFZSY78/2022 & 05/2022Surgical HistorytonsillectomySurgical HistoryappendectomySurgical History rotator cuff tear repairHospitalization HistorySEE [facility] TechTurn Other Hishyhg general Narrative - Reported* Type Description Date Medical History PROSTATE CANCER Medical KdpcfqkUT3Uumyglx HistoryGERDMedical HistoryHTNMedical HistoryNEUROPATHY Medical HistoryBells PalsyMedical HistoryPADSurgical Historyprostate surgery for cancer01/2013Surgical Reiwwkfixsagzvkzayvzbu7908Nzghdvcc Historyhernia dhwjfc8502 Surgical Historycircumcision/2019Surgical HistoryBILATERAL CATARACT REMOVAL 04/2022 & 05/2022Surgical HistorytonsillectomySurgical Historyappendectomy Surgical Historyrotator cuff tear repairSurgical HistoryPART OF LEFT FOOT REMOVED ON THE OUTER [id number] HistorySEE [facility] [employer] Other Hisoicc general Narrative - Reported* Type Description Date Medical History PROSTATE CANCER Medical RugmfdeSB8Hmwymct HistoryGERDMedical HistoryHTNMedical HistoryNEUROPATHY Medical HistoryBells PalsyMedical HistoryPADSurgical Historyprostate surgery for cancer01/2013Surgical Gdyprmacyycfirwmldiexq4331Gkruxcpu Historyhernia fynyso3617 Surgical Historycircumcision11/2019Surgical HistoryBILATERAL CATARACT REMOVAL 04/2022 & 05/2022Surgical HistorytonsillectomySurgical Historyappendectomy Surgical Historyrotator cuff tear repairSurgical HistoryPART OF LEFT FOOT REMOVED ON THE OUTER FOOT02/25/23Hospitalization HistorySEE ABOVE [facility] Other InstructionsNot on filedocumented in this encounter [facility]ructionsNot on filedocumented in this encounter [facility] SystemInstructionsNot on filedocumented in this encounter [facility] SystemInstructions* Attachments The following attachments cannot be sent through Care Everywhere. * Prostate Cancer Diet ([place]) documented in this encounterProMediSelect [facility] SystemInstructionsNot on file documented in this encounterProToledo Hospital SystemReason for referral (narrative)No reason for referral information availableSt. Elizabeth Hospital Work Phone: Summary Purpose Family History Relationship Condition Age at Onset Recorded Date/T karolina father Hypertension Unknown Not SpecifiedDiabetes mellitusUnknownHistory of strokeUnknownDeceasedUnknown Relationship Condition Age at Onset Recorded Date/T karolina father Hypertension Unknown Not SpecifiedDiabetes mellitusUnknownHistory of strokeUnknownDeceasedUnknown Cerebrovascular accident (CVA)UnknownbrotherMalignant neoplasmUnknown Relationship Condition Age at Onset Recorded Date/T karolina father Hypertension Unknown motherDiabetes mellitusUnknownHistory of strokeUnknownDeceasedUnknown Cerebrovascular accident (CVA)UnknownbrotherMalignant neoplasmUnknown Advance Directives Advance Directive Response Recorded Date/ Time Advance Directives No March 31, 2018 12:20pm Advance Directive Response Recorded Date/ Time Advance Directives No March 31, 2018 11:20am Date ActivatedDate InactivatedComments11/19/2024 4:30 PM11/23/2024 8:12 PMDate ActivatedDate InactivatedComments11/19/2024 12:57 PM11/19/2024 3:06 PM Reason for Referral Reason DM II TOE WOUNDS Diagnosis 1 Type 2 diabetes wilfredo itus with hyperglycemia (E11.65) Referral Organization [facility] Referring Provider First Name Louise Referring Provider Last Name Ashleigh Referring Provider Specialty Nurse Pract itioner Referred Organization [facility] Referred Provider Rohan Han Referred Address ,[place], [place],[address] Referred Provider Specialty Podiatry - S urgical Chiropody Referral Priority Routine Referral Appointment Date 2022-07-30 General Notes Socorro Higuera 07/2022 09:45:27 AM >CALL TO DR SHARMA'S OFFICE FOR SCHEDULING PATIENCE; ADDRESS: [address] [place] [address] PHONE: [phone]; PATIENT HAS BEEN DISCHARGED FROM PRACTICE DUE TO FINANCIAL PAST DUE/COLLECTIONS STATUS; Socorro Higuera 07/26/2022 09:52:59 AM >SCHEDULED WITH DR. ROHAN HAN IN [place] ON 07/30/22.BE THERE AT 2PM FOR A 230PM APPT. ADDRESS: [address] [place] [address]; PHONE: [phone]. ATTEMPTED TO INFORM PATIENT. VOICEMAIL FULL. WILL TRY AGAIN LATER. REFERRAL, OFFICE NOTES AND MED LIST FAXED TO [phone]. REACHED PATIENT AND HE IS INFORMED OF APPT STATUS. REFERRAL FAXED. Chief Complaint and Reason for Visit Chief Complaint Admit Date renal f/u January 19, 2025 3: 12pm Reason for Visit Admit Date Chronic kidney disease (CKD) stage G4/A3, severely decreased glomerular January 13, 2025 3:39pm BMI 27.0-27.9,adult January 13, 2025 3: 39pm Dietary counseling and surveillance 2024 3:39pm HTN (hypertension) January 13, 2025 3: 39pm Hyperlipemia January 13, 2025 3: 39pm T2DM (type 2 diabetes mellitus) December 252024 3:39pm 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 January 19, 2025 3:12pm Hyperkalemia January 19, 2025 3: 12pm Hyperphosphatemia January 19, 2025 3: 12pm Hyperuricemia January 19, 2025 3: 12pm Vitamin D deficiency January 19, 2025 3 :12pm Anemia January 19, 2025 3: 12pm Chronic kidney disease, stage IV (severe ) January 19, 2025 3:12pm Primary hypertension January 19, 2025 3 :12pm Benign essential hypertension February 01, 2025 1:00pm Cerebrovascular disease February 01, 2 025 1:00pm Chronic heart failure with p reserved ejection fraction (HFpEF) February 01, 2025 1:00pm Chronic kidney disease (CKD) stage G4/A3, severely decreased glomerular February 01, 2025 1:00pm DDD (degenerative disc disease), cervica l February 01, 2025 1:00pm DDD (degenerative disc disease), lumbar February 01, 2025 1:00pm BRYCE (generalized anxiety disorder) Bertha cruz 2024 1:00pm Major depressive disorder, recurrent, mo derate February 01, 2025 1:00pm Primary insomnia February 01, 2025 1:00pm Type 2 diabetes mellitus with diabetic p olyneuropathy February 01, 2025 1:00pm Type 2 diabetes mellitus wit h hyperglycemia, with long-term current use of February 01, 2025 1:00pm Chief Complaint 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 Chief Complaint 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 lt foot issues, hx diabeticReason for VisitDiabetic foot infection Chief Complaint 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 lt foot issues, hx diabeticReason for VisitAcute hematogenous osteomyelitis, left ankle and foot [id number] Diabetic foot infection Diarrhea Hypertension Osteomyelitis PAD (peripheral artery disease) Pseudomonas infection Sciatica, left side 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 Vomiting Chief Complaint 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 lt foot issues, hx diabetic IV antibiotic therapy, osteomyelitis iv antibotic therapy, osteomyelitis 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Reason for VisitAcute hematogenous osteomyelitis, left ankle and foot [id number] Diabetic foot infection Diarrhea Hypertension Osteomyelitis PAD (peripheral artery disease) Pseudomonas infection Sciatica, left side 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 Vomiting Chief Complaint 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 lt foot issues, hx diabetic IV antibiotic therapy, osteomyelitis iv antibotic therapy, osteomyelitis 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 e10.42 m86.172Reason for VisitAcute hematogenous osteomyelitis, left ankle and foot [id number] Diabetic foot infection Diarrhea Hypertension Osteomyelitis PAD (peripheral artery disease) Pseudomonas infection Sciatica, left side 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 Vomiting Chief Complaint 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 lt foot issues, hx diabetic IV antibiotic therapy, osteomyelitis iv antibotic therapy, osteomyelitis 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 e10.42 m86.172 termite treater current use of antibioticsReason for VisitAcute hematogenous osteomyelitis, left ankle and foot [id number] Diabetic foot infection Diarrhea Hypertension Osteomyelitis PAD (peripheral artery disease) Pseudomonas infection Sciatica, left side 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 Vomiting Chief Complaint 2 Week Follow Up 3 Month Follow Up E11.40 Chief Complaint 2 Week Follow Up 3 Month Follow Up E11.40 L foot swelling,woundsReason for VisitDiabetic foot infection HTN (hypertension) Hyperlipemia PAD (peripheral artery disease) Sepsis T2DM (type 2 diabetes mellitus) Chief Complaint 2 Week Follow Up 3 Month Follow Up E11.40 L foot swelling,wounds L foot swelling,wounds L foot swelling,wounds L foot swelling,wounds L foot swelling,wounds L foot swelling,wounds L foot swelling,wounds AKIReason for VisitAKI (acute kidney injury) Cellulitis of left foot Constipation [id number] Diabetic foot infection Gangrene of left foot [...] fluid overload CHF, fluid overload CHF, fluid overloadReason for VisitAKI (acute kidney injury) Anemia of renal disease HTN (hypertension) Hyperlipemia [...] fluid overload CHF, fluid overload 3 month f/u-METERReason for VisitAnemia of renal disease HTN (hypertension) Hyperlipemia PAD [...] fluid overload 3 month f/u-METER RENAL HOSP F/UReason for VisitAKI (acute kidney injury) Anemia of renal disease HTN (hypertension) Hyperlipemia [...] 3 month f/u-METER RENAL HOSP F/U Hospital f/u-Reason for VisitAKI (acute kidney injury) Anemia of renal disease [...] Chief Complaint RENAL HOSP F/U Hospital f/u- armando meterReason for VisitAKI (acute kidney injury) Anemia Diabetic nephropathy associated with type 2 diabetes mellitus Hyperphosphatemia Primary hypertension T2DM (type 2 diabetes mellitus) Vitamin D deficiency History of tracheostomy Respiratory failure BMI 29.0-29.9,adult Dietary counseling and surveillance HTN (hypertension) Hyperlipemia T2DM (type 2 diabetes mellitus) Chief Complaint RENAL HOSP F/U Hospital f/u- armando meter RENAL 3 MONTH F/UReason for VisitAKI (acute kidney injury) Anemia Diabetic nephropathy associated [...] diabetes mellitus) Vitamin D deficiency Chief Complaint Admit Date RENAL 3 MONTH F/U April 07, 2024 4:19pm Reason for Visit Admit Date SONYA (acute kidney injury) April 07, 2024 4:19pm Anemia April 07, 2024 4:19pm Chronic kidney disease, stage IV (severe ) April 07, 2024 4:19pm 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 April 07, 2024 4:19pm Hyperkalemia April 07, 2024 4:19pm Hyperphosphatemia April 07, 2024 4:19pm Primary hypertension April 07, 2024 4:19pm T2DM (type 2 diabetes mellitus) April 07, 2024 4:19pm Vitamin D deficiency April 07, 2024 4:19pm Chief Complaint Admit Date RENAL 3 MONTH F/U April 07, 2024 4:19pm meter April 19, 2024 3:31pm Amb Documentation May 03, 2024 5 :56pm RENAL 2 MONTH F/U June 09, 2024 2 :00pm Reason for Visit Admit Date SONYA (acute kidney injury) April 07, 2024 4:19pm Anemia April 07, 2024 4:19pm Chronic kidney disease, stage IV (severe ) April 07, 2024 4:19pm 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 April 07, 2024 4:19pm Hyperkalemia April 07, 2024 4:19pm Hyperphosphatemia April 07, 2024 4:19pm Primary hypertension April 07, 2024 4:19pm T2DM (type 2 diabetes mellitus) April 07, 2024 4:19pm Vitamin D deficiency April 07, 2024 4:19pm BMI 31.0-31.9,adult April 19, 2024 3:31pm Dietary counseling and surveillance Nick cruz 2023 3:31pm HTN (hypertension) April 19, 2024 3:31pm Hyperlipemia April 19, 2024 3:31pm T2DM (type 2 diabetes mellitus) April 19, 2024 3:31pm Anemia June 09, 2024 2 :00pm Chronic kidney disease, stage IV (severe ) June 09, 2024 2:00pm 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 June 09, 2024 2:00pm Hyperkalemia June 09, 2024 2 :00pm Hyperphosphatemia June 09, 2024 2 :00pm Primary hypertension June 09, 2024 2:00pm T2DM (type 2 diabetes mellitus) June 09, 2024 2:00pm Vitamin D deficiency June 09, 2024 2:00pm Chief Complaint Admit Date RENAL 2 MONTH F/U June 09, 2024 2 :00pm 3 month-METER July 29, 2024 2:24 pm Reason for Visit Admit Date Anemia June 09, 2024 2 :00pm Chronic kidney disease, stage IV (severe ) June 09, 2024 2:00pm 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 June 09, 2024 2:00pm Hyperkalemia June 09, 2024 2 :00pm Hyperphosphatemia June 09, 2024 2 :00pm Primary hypertension June 09, 2024 2:00pm T2DM (type 2 diabetes mellitus) June 09, 2024 2:00pm Vitamin D deficiency June 09, 2024 2:00pm BMI 31.0-31.9,adult July 29, 2024 2:24 pm Dietary counseling and surveillance Tejas dom 2024 2:24pm HTN (hypertension) July 29, 2024 2:24 pm Hyperlipemia July 29, 2024 2:24 pm T2DM (type 2 diabetes mellitus) July 2:24pm Chief Complaint Admit Date RENAL 2 MONTH F/U June 09, 2024 2 :00pm 3 month-METER July 29, 2024 2:24 pm RENAL 3 MONTH F/U August 31, 2024 3:23 pm Reason for Visit Admit Date Anemia June 09, 2024 2 :00pm Chronic kidney disease, stage IV (severe ) June 09, 2024 2:00pm 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 June 09, 2024 2:00pm Hyperkalemia June 09, 2024 2 :00pm Hyperphosphatemia June 09, 2024 2 :00pm Primary hypertension June 09, 2024 2:00pm T2DM (type 2 diabetes mellitus) June 09, 2024 2:00pm Vitamin D deficiency June 09, 2024 2:00pm BMI 28.0-28.9,adult July 29, 2024 2:24 pm Dietary counseling and surveillance [facility] 2024 2:24pm HTN (hypertension) July 29, 2024 2:24 pm Hyperlipemia July 29, 2024 2:24 pm T2DM (type 2 diabetes mellitus) July 2:24pm Anemia August 31, 2024 3:23 pm Chronic kidney disease, stage IV (severe ) August 31, 2024 3:23pm 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 August 31, 2024 3:23pm Hyperkalemia August 31, 2024 3:23 pm Hyperphosphatemia August 31, 2024 3:23 pm Primary hypertension August 31, 2024 3:2 3pm T2DM (type 2 diabetes mellitus) August 3:23pm Vitamin D deficiency August 31, 2024 3:2 3pm Chief Complaint Admit Date 3 month-METER July 29, 2024 2:24 pm RENAL 3 MONTH F/U August 31, 2024 3:23 pm Follow up; PAD; September 28, 2024 12:54p m Reason for Visit Admit Date BMI 28.0-28.9,adult July 29, 2024 2:24 pm Dietary counseling and surveillance Tejas 2024 2:24pm HTN (hypertension) July 29, 2024 2:24 pm Hyperlipemia July 29, 2024 2:24 pm T2DM (type 2 diabetes mellitus) July 2:24pm Anemia August 31, 2024 3:23 pm Chronic kidney disease, stage IV (severe ) August 31, 2024 3:23pm Diabetic nephropathy associated with typ e 2 diabetes mellitus August 31, 2024 3:23pm Hyperkalemia August 31, 2024 3:23 pm Hyperphosphatemia August 31, 2024 3:23 pm Primary hypertension August 31, 2024 3:2 3pm T2DM (type 2 diabetes mellitus) August 3:23pm Vitamin D deficiency August 31, 2024 3:2 3pm Reason for Visit Admit Date BMI 27.0-27.9,adult January 13, 2025 3: 39pm Chronic kidney disease (CKD) stage G4/A3, severely decreased glomerular January 13, 2025 3:39pm Dietary counseling and surveillance 2024 3:39pm HTN (hypertension) January 13, 2025 3: 39pm Hyperlipemia January 13, 2025 3: 39pm T2DM (type 2 diabetes mellitus) December 252024 3:39pm Reason for Visit Admit Date BMI 27.0-27.9,adult January 13, 2025 3: 39pm Chronic kidney disease (CKD) stage G4/A3, severely decreased glomerular January 13, 2025 3:39pm Dietary counseling and surveillance 2024 3:39pm HTN (hypertension) January 13, 2025 3: 39pm Hyperlipemia January 13, 2025 3: 39pm T2DM (type 2 diabetes mellitus) December 252024 3:39pm Anemia January 19, 2025 3: 12pm Chronic kidney disease, stage IV (severe ) January 19, 2025 3:12pm 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 January 19, 2025 3:12pm Hyperkalemia January 19, 2025 3: 12pm Hyperphosphatemia January 19, 2025 3: 12pm Hyperuricemia January 19, 2025 3: 12pm Primary hypertension January 19, 2025 3 :12pm Vitamin D deficiency January 19, 2025 3 :12pm Chief Complaint Admit Date renal f/u January 19, 2025 3: 12pm fall-lt arm pain March 11, 2025 3 :55pm Reason for Visit Admit Date Chronic kidney disease (CKD) stage G4/A3, severely decreased glomerular January 13, 2025 3:39pm BMI 27.0-27.9,adult January 13, 2025 3: 39pm Dietary counseling and surveillance 2024 3:39pm HTN (hypertension) January 13, 2025 3: 39pm Hyperlipemia January 13, 2025 3: 39pm T2DM (type 2 diabetes mellitus) December 252024 3:39pm 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 January 19, 2025 3:12pm Hyperkalemia January 19, 2025 3: 12pm Hyperphosphatemia January 19, 2025 3: 12pm Hyperuricemia January 19, 2025 3: 12pm Vitamin D deficiency January 19, 2025 3 :12pm Anemia January 19, 2025 3: 12pm Chronic kidney disease, stage IV (severe ) January 19, 2025 3:12pm Primary hypertension January 19, 2025 3 :12pm Cerebrovascular disease February 01, 2 025 1:00pm DDD (degenerative disc disease), cervica l February 01, 2025 1:00pm Medicare annual wellness visit, subseque nt February 01, 2025 1:00pm Chief Complaint Admit Date renal f/u January 19, 2025 3: 12pm fall-lt arm pain March 11, 2025 3 :55pm [facility] f/u-fall left arm/shoulder March 29, 2025 2:53pm Reason for Visit Admit Date Chronic kidney disease (CKD) stage G4/A3, severely decreased glomerular January 13, 2025 3:39pm BMI 27.0-27.9,adult January 13, 2025 3: 39pm Dietary counseling and surveillance 2024 3:39pm HTN (hypertension) January 13, 2025 3: 39pm Hyperlipemia January 13, 2025 3: 39pm T2DM (type 2 diabetes mellitus) December 252024 3:39pm 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 January 19, 2025 3:12pm Hyperkalemia January 19, 2025 3: 12pm Hyperphosphatemia January 19, 2025 3: 12pm Hyperuricemia January 19, 2025 3: 12pm Vitamin D deficiency January 19, 2025 3 :12pm Anemia January 19, 2025 3: 12pm Chronic kidney disease, stage IV (severe ) January 19, 2025 3:12pm Primary hypertension January 19, 2025 3 :12pm Cerebrovascular disease February 01, 2 025 1:00pm DDD (degenerative disc disease), cervica l February 01, 2025 1:00pm Medicare annual wellness visit, ellene nt February 01, 2025 1:00pm Left shoulder pain March 29, 2025 2 :53pm Primary osteoarthritis, left shoulder No vember 2024 2:53pm Additional Source Comments REASON FOR VISIT (unrecogniz ed section and content) ReasonCommentsFoot UlcerLeft foot ulcer/ surgery consultReasonCommentsPost-op1st post opReasonCommentsDM Foot CareDm NailsReasonCommentsMed RefillReasonComments Follow-up3mReasonCommentsMedicare Annual Wellness Visit SubsequentReasonComments Follow-upJerking of upper body,Extremity WeaknessweaknessReasonOnset Date CommentsMed Ygwkcs1105/13/2024easonCommentsFollow-upAnnual follow up w/PSAReason CommentsDM Foot CareDm nail careReasonOnset DateCommentsMed Vexzzo3410/19/2024 ReasonCommentsFollow-upHospital f/up strokeReasonOnset DateCommentsMed Refill 12/16/2024ReasonCommentsDM Foot Care (unrecognized sect ion and content) No Status Records FoundNo Status Records FoundNo Status Records FoundNo Status Records FoundNo Status Records FoundNo Status Records FoundNo Status Records FoundNo Status Records Found INFORMATION SOURCE (unrecogn ized section and content) DATE CREATED AUTHOR 07/27/2022 [facility] DATE CREATED AUTHOR AUTHOR'S ORGANIZ ATION 01/23/2024 [facility] DATE CREATED AUTHOR AUTHOR'S ORGANIZ ATION 09/03/2024 [facility] DATE CREATED AUTHOR AUTHOR'S ORGANIZ ATION 10/22/2024 [facility] DATE CREATED AUTHOR AUTHOR'S ORGANIZ ATION 11/20/[address] [facility] DATE CREATED AUTHOR AUTHOR'S ORGANIZ ATION 01/06/2025 [facility] DATE CREATED AUTHOR AUTHOR'S ORGANIZ ATION 02/12/2025 [facility] DATE CREATED AUTHOR AUTHOR'S ORGANIZ ATION 03/13/2025 [facility] Care Teams (unrecognized sec tion and content) Team Status: Active Member Role Status Dates Tejas Stevens MD Primary Care Provider Active Team Status: Active Member Role Status Dates Tejas Stevens MD Primary Care Provider Active S tart: December 30, 2024 Anai Redending ProviderActiveStart: December 30, 2024 Team Status: Inactive Member Role Status Dates Tejas Stevens MD Primary Care Provider Active S tart: January 13, 2025 End: January 13, 2025Tondra Tanvi Sotelo , ANDRENAtfidel ProviderActiveStart: January 13, 2025 End: January 13, 2025 Team Status: Inactive Member Role Status Dates Tejas Stevens MD Primary Care Provider Active S tart: June 09, 2024 End: June 09corin Hammer MDAttending ProviderActiveStart: June 09, 2024 End: June 09, 2024 Team Status: Inactive Member Role Status Dates Tejas Stevens MD Primary Care Provider Active S tart: July 29, 2024 End: July 29, 2024Tondra Tanvi Sotelo , ANDRENAtfidel ProviderActiveStart: July 29, 2024 End: July 29, 2024 Team Status: Active Member Role Status Dates Tejas Stevens MD Primary Care Provider Active S tart: August 19, 2024 Anai Redending ProviderActiveStart: August 19, 2024 Team Status: Inactive Member Role Status Dates Tejas Stevens MD Primary Care Provider Active S tart: August 31, 2024 End: August 31corin Hammer MDAttending ProviderActiveStart: August 31, 2024 End: August 31, 2024 Team Status: Active Member Role Status Dates Tejas Stevens MD Primary Care Provider Active S tart: March 30, 2024 Anai Redending ProviderActiveStart: March 30, 2024 Team Status: Inactive Member Role Status Dates Tejas Stevens MD Primary Care Provider Active S tart: April 07, 2024 End: April 07ziz Bakhous , MDAttending ProviderActiveStart: April 07, 2024 End: April 07, 2024 Team Status: Inactive Member Role Status Dates Dhruv Bautista MD Attending Provider Active Marilyn AliceaMid [facility] ProviderActive Team Status: Inactive Member Role Status Dates Tejas Stevens MD Primary Care Provider Active Anai Hareending ProviderActive Team Status: Active Member Role Status Dates Tejas Stevens MD Primary Care Provider Active Rico Carr , DOEmergency ProviderActiveFiras Seffo , MDAdmit Provider, Attending ProviderActive Team Status: Inactive Member Role Status Dates Tejas Stevens MD Primary Care Provider Active Rico Carr , DOEmergency ProviderActiveFiras Seffo , MDAdmit ProviderActive Michael Ramírez MDOther ProviderActiveNicyasmine Han , DPMOther ProviderActive Richa Slater , LPNOther ProviderActiveDhruv Bautista MDOther Provider ActivePameal Berry 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 PRINTING PAPER-COther ProviderActiveMohamshannan Youngblood MDOther ProviderActiveGiovanni Ni MDOther ProviderActiveOrestes Mejia , Attending ProviderActive Team Status: Inactive Member Role Status Dates Michael Ramírez MD Attending Provider Active Team Status: Active Member Role Status Dates John Ervin , Primary Care Provider Active Juan Ramon Shields APRN 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 PRINTING PAPER-MyrativeLouise Sotelo , APRNAttending ProviderActive Team Status: Inactive Member Role Status Dates Rohan Han , DPM Attending Provider Active Team MemberRelationshipSpecialtyStart DateEnd Date Tejas Stevens MD PCP - GeneralCardiology11/07/22 Tejas Stevens MD [address] [place] [address] PCP - Devoted05/26/23Team MemberRelationshipSpecialtyStart DateEnd Date Tejas Stevens MD PCP - GeneralCardiology11/07/22 Tejas Stevens MD [address] [place] [id number] PCP - Devoted05/26/23 Team Status: Inactive Member Role Status Dates iMchael Ramírez MD Attending Provider Active Sta rt: April 30, 2023 End: April 30, 2023 Team Status: Inactive Member Role Status Dates Louise Sotelo APRN Attending Provider Active Start: June 26, 2023 End: June 26, 2023 Team Status: Inactive Member Role Status Dates John Ervin DO Primary Care Provider Active Start: June 26, 2023 End: June 26, 2023Juan Ramon Shields APRN 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 PRINTING PAPER-CActiveStart: June 26, 2023 End: June 26, 2023Louise Sotelo APRNAtfidel ProviderActiveStart: June 26, 2023 End: June 26, 2023Team MemberRelationshipSpecialtyStart DateEnd Date Tejas Stevens MD PCP - GeneralCardiology11/07/22 Tejas Stevens MD [address] [place] [id number] PCP - Devoted05/26/23 Team Status: Active Member Role Status Dates Tejas Stevens MD Primary Care Provider Active S tart: July 10, 2023 Neptali Walker ProviderActiveStart: July 10, 2023 Mickie Vazquez Provider, Attending ProviderActiveStart: July 10, 2023 Team MemberRelationshipSpecialtyStart DateEnd Date Tejas Stevens MD PCP - GeneralCardiology11/07/22 Tejas Stevens MD [address] [place] [address] PCP - Devoted05/26/23 Team Status: Active Member Role Status Dates Tejas Stevens MD Primary Care Provider Active S tart: July 10, 2023 Neptali Walker ProviderActiveStart: July 10, 2023 Mickie Vazquez ProviderActiveStart: July 10, 2023 Michael Ramírez MDOther ProviderActiveStart: July 10, 2023 Rohan Han DPMOther ProviderActiveStart: July 10, 2023 Mayra Youngblood MDOther ProviderActiveStart: July 10, 2023 Tello Nava MDAttending ProviderActiveStart: July 10, 2023 Sanket Hammer MDOther ProviderActiveStart: July 10, 2023 Richa Slater , LPNOther ProviderActiveStart: July 10, 2023 Dhruv Bautista MDOther ProviderActiveStart: July 10, 2023 Pamela Berry , 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 PRINTING PAPER-COther ProviderActiveStart: July 10, 2023 Giovanni Ni MDOther ProviderActiveStart: July 10, 2023 Hermes Morton MDOther ProviderActiveStart: July 10, 2023 Team Status: Active Member Role Status Dates Tejas Stevens MD Primary Care Provider Active S tart: July 10, 2023 Neptali Walker ProviderActiveStart: July 10, 2023 Mickie Vazquez Provider, Other ProviderActiveStart: July 10, 2023 Jesica Juan APRNAttending ProviderActiveStart: July 10, 2023 Team Status: Active Member Role Status Dates Tejas Stevens MD Primary Care Provider Active S tart: July 11, 2023 Neptali Walker ProviderActiveStart: July 11, 2023 Mickie Vazquez ProviderActiveStart: July 11, 2023 Brennan Cerrato MDOther ProviderActiveStart: July 11, 2023 Michael Ramírez MDOther ProviderActiveStart: July 11, 2023 STEVIE ButlerMOther ProviderActiveStart: July 11, 2023 Giovanni Ni MDAttending ProviderActiveStart: July 11, 2023 Team Status: Active Member Role Status Dates Tejas Stevens MD Primary Care Provider Active S tart: July 12, 2023 Neptali Walker ProviderActiveStart: July 12, 2023 Mickie Vazquez ProviderActiveStart: July 12, 2023 Brennan Cerrato MDOther ProviderActiveStart: July 12, 2023 Ahsan Sauer Provider, Other ProviderActiveStart: July 12, 2023 STEVIE ButlerMOther ProviderActiveStart: July 12, 2023 Mayra Youngblood MDOther ProviderActiveStart: July 12, 2023 Team Status: Active Member Role Status Dates Tejas Stevens MD Primary Care Provider Active S tart: July 13, 2023 Neptali Walker ProviderActiveStart: July 13, 2023 Arnaldo Thomas MDAdmit ProviderActiveStart: July 13, 2023 Michael Ramírez MDOther ProviderActiveStart: July 13, 2023 GLADIS Butlerther ProviderActiveStart: July 13, 2023 Mayra Youngblood MDOther ProviderActiveStart: July 13, 2023 Anai Quintanaending Provider, Other ProviderActiveStart: July 13, 2023 Team Status: Active Member Role Status Dates Tejas Stevens MD Primary Care Provider Active S tart: July 14, 2023 Neptali Walker ProviderActiveStart: July 14, 2023 Arnaldo Thomas MDAdmdustin ProviderActiveStart: July 14, 2023 Bianca Sauer ProviderActiveStart: July 14, 2023 Ferdinand Butler ProviderActiveStart: July 14, 2023 Bianca Coyle ProviderActiveStart: July 14, 2023 Tello Nava MDOther ProviderActiveStart: July 14, 2023 Hermes Morton MDOther ProviderActiveStart: July 14, 2023 Georgi Eddie , MDAttending ProviderActiveStart: July 14, 2023 Team Status: Active Member Role Status Dates Tejas Stevens MD Primary Care Provider Active S tart: July 15, 2023 Neptali Walker ProviderActiveStart: July 15, 2023 Arnaldo Thomas MDAdmit ProviderActiveStart: July 15, 2023 Michael Ramírez MDOther ProviderActiveStart: July 15, 2023 STEVIE ButlerMOther ProviderActiveStart: July 15, 2023 Mayra Youngblood MDOther ProviderActiveStart: July 15, 2023 Tello Nava MDOther ProviderActiveStart: July 15, 2023 Hermes Morton MDOther ProviderActiveStart: July 15, 2023 Sanket Hammer MDAttending Provider, Other ProviderActiveStart: July 15, 2023 Team Status: Inactive Member Role Status Dates Tejas Stevens MD Primary Care Provider Active S tart: July 18, 2023 End: July 18wilmar Kay MDAttending ProviderActiveStart: July 18, 2023 End: July 18, 2023 Team Status: Inactive Member Role Status Dates Tejas Stevens MD Primary Care Provider Active S tart: July 10, 2023 End: July 25Neptali Cedeño ProviderActiveStart: July 10, 2023 End: July 26, 2023Arnaldo Thomas MDAdmit ProviderActiveStart: July 10, 2023 End: July 26, 2023Michael Ramírez MDOther ProviderActiveStart: July 10, 2023 End: July 26, 2023STEVIE ButlerMOther ProviderActiveStart: July 10, 2023 End: July 26, 2023Bianca Coyle ProviderActiveStart: July 10, 2023 End: July 25Bianca Alexandre ProviderActiveStart: July 10, 2023 End: July 25juan luis Slater LPNOther ProviderActiveStart: July 10, 2023 End: July 26, 2023Dhruv Bautista MDOther ProviderActiveStart: July 10, 2023 End: July 26, 2023Pamela Berry NP-COther ProviderActiveStart: July 10, 2023 End: July 26, 2023Giovanni Ni MDOther ProviderActiveStart: July 10, 2023 End: July 25tim Morton MDOther ProviderActiveStart: July 10, 2023 End: July 26, 2023Geo Thomas DOAttending ProviderActiveStart: July 10, 2023 End: July 26, 2023 Team Status: Active Member Role Status Dates Tejas Stevens MD Primary Care Provider Active S tart: July 13, 2023 Neptali Walker ProviderActiveStart: July 13, 2023 Mickie Vazquez ProviderActiveStart: July 13, 2023 Michael Ramírez MDOther ProviderActiveStart: July 13, 2023 GLADIS Butlerther ProviderActiveStart: July 13, 2023 Mayra Youngblood MDOther ProviderActiveStart: July 13, 2023 Shun Rubin MDAttending Provider, Other ProviderActiveStart: July 13, 2023 Ganga Kennedy MDActiveStart: July 13, 2023 Team Status: Active Member Role Status Dates Tejas Stevens MD Primary Care Provider Active S tart: July 19, 2023 Neptali Walker ProviderActiveStart: July 19, 2023 Mickie Vazquez ProviderActiveStart: July 19, 2023 Michael Ramírez MDOther ProviderActiveStart: July 19, 2023 STEVIE ButlerMOther ProviderActiveStart: July 19, 2023 Mayra Youngblood MDOther ProviderActiveStart: July 19, 2023 Tello Nava MDOther ProviderActiveStart: July 19, 2023 Sanket Hammer MDOther ProviderActiveStart: July 19, 2023 Richa Slater LPNOther ProviderActiveStart: July 19, 2023 Dhruv Bautista MDOther ProviderActiveStart: July 19, 2023 Pamela R Ruttino , 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 PRINTING PAPER-COther ProviderActiveStart: July 19, 2023 Giovanni Ni MDOther ProviderActiveStart: July 19, 2023 Hermes Morton MDOther ProviderActiveStart: July 19, 2023 hAsan Magallon ProviderActiveStart: July 19, 2023 Naida Amaya , MDActiveStart: July 19, 2023 Team Status: Active Member Role Status Dates Tejas Stevens MD Primary Care Provider Active S tart: July 21, 2023 Neptali Walker ProviderActiveStart: July 21, 2023 Mickie Vazquez ProviderActiveStart: July 21, 2023 Ahsan Sauer Provider, Other ProviderActiveStart: July 21, 2023 Rohan Han DPMOther ProviderActiveStart: July 21, 2023 Mayra Youngblood MDOther ProviderActiveStart: July 21, 2023 Sanket Hammer MDOther ProviderActiveStart: July 21, 2023 Richa Slater LPNOther ProviderActiveStart: July 21, 2023 Dhruv Bautista MDOther ProviderActiveStart: July 21, 2023 Pamela Berry 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 PRINTING PAPER-COther ProviderActiveStart: July 21, 2023 Giovanni Ni MDOther ProviderActiveStart: July 21, 2023 Hermes Morton MDOther ProviderActiveStart: July 21, 2023 Vania Chacon MDOther ProviderActiveStart: July 21, 2023 Team Status: Active Member Role Status Dates Tejas Stevens MD Primary Care Provider Active S tart: July 22, 2023 Neptali Walker ProviderActiveStart: July 22, 2023 Mickie Vazquez ProviderActiveStart: July 22, 2023 Bianca Sauer ProviderActiveStart: July 22, 2023 Rohan Han DPMOther ProviderActiveStart: July 22, 2023 Mayra Youngblood MDOther ProviderActiveStart: July 22, 2023 Aziz Bakhous , MDOther ProviderActiveStart: July 22, 2023 Richa Slater LPNOther ProviderActiveStart: July 22, 2023 Dhruv Bautista MDOther ProviderActiveStart: July 22, 2023 Pamela Berry , 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 PRINTING PAPER-COther ProviderActiveStart: July 22, 2023 Giovanni Ni MDOther ProviderActiveStart: July 22, 2023 Hermes Morton MDOther ProviderActiveStart: July 22, 2023 Vania Chacon MDOther ProviderActiveStart: July 22, 2023 Rancho Kay MDAttending ProviderActiveStart: July 22, 2023 Team Status: Active Member Role Status Dates Tejas Stevens MD Primary Care Provider Active S tart: July 26, 2023 Neptali Walker ProviderActiveStart: July 26, 2023 Arnaldo Thomas MDAdmit ProviderActiveStart: July 26, 2023 Michael Ramírez MDOther ProviderActiveStart: July 26, 2023 Rohan Han DPMOther ProviderActiveStart: July 26, 2023 Mayra Youngblood MDOther ProviderActiveStart: July 26, 2023 Sanket Hammer MDOther ProviderActiveStart: July 26, 2023 Richa Slater LPNOther ProviderActiveStart: July 26, 2023 Dhruv Bautista MDOther ProviderActiveStart: July 26, 2023 Pamela Berry , 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 PRINTING PAPER-COther ProviderActiveStart: July 26, 2023 Giovanni Ni MDOther ProviderActiveStart: July 26, 2023 Hermes Morton MDOther ProviderActiveStart: July 26, 2023 Geo Thomas , DOAttending Provider, Other ProviderActiveStart: July 26, 2023 Team Status: Inactive Member Role Status Dates Tejas Stevens MD Primary Care Provider Active S tart: August 01, 2023 End: August 23, 2023Geo Thomas , DOAdmit ProviderActiveStart: August 01, 2023 End: August 23, 2023Megha Arriaga APRN ACNP-BCOther ProviderActiveStart: August 01, 2023 End: August 23, 2023Bianca Gu ProviderActiveStart: August 01, 2023 End: August 22Bianca Main ProviderActiveStart: August 01, 2023 End: August 23, 2023MoBianca Mann ProviderActiveStart: August 01, 2023 End: August 23, 2023Sebastian Flores DOOther ProviderActiveStart: August 01, 2023 End: August 23, 2023Saige Jolley MDOther ProviderActiveStart: August 01, 2023 End: August 23, 2023Bianca Funes ProviderActiveStart: August 01, 2023 End: August 22Bianca Boyer ProviderActiveStart: August 01, 2023 End: August 22rio Han DOOther ProviderActiveStart: August 01, 2023 End: August 23, 2023Natsilvia Fernandes DOOther ProviderActiveStart: August 01, 2023 End: August 22aseBianca Ramos ProviderActiveStart: August 01, 2023 End: August 23, 2023Bianca Wong ProviderActiveStart: August 01, 2023 End: August 23, 2023Geovany Marcher ProviderActiveStart: August 01, 2023 End: August 22Bianca Hook ProviderActiveStart: August 01, 2023 End: August 23, 2023GiBianca Blandon ProviderActiveStart: August 01, 2023 End: August 23, 2023SuBianca Hernandez ProviderActiveStart: August 01, 2023 End: August 22Bianca Alexandre ProviderActiveStart: August 01, 2023 End: August 23, 2023Tika Rochather ProviderActiveStart: August 01, 2023 End: August 23, 2023Tyra Carrera ProviderActiveStart: August 01, 2023 End: August 23, 2023StBianca Neal ProviderActiveStart: August 01, 2023 End: August 22galina Cordon , DOOther ProviderActiveStart: August 01, 2023 End: August 23, 2023Fevirginia Grimes , ANP-BCOther ProviderActiveStart: August 01, 2023 End: August 22abby Rivers , DOOther ProviderActiveStart: August 01, 2023 End: August 22jacky Kamara , APRNOther ProviderActiveStart: August 01, 2023 End: August 22lauren Casey , 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 PRINTING PAPER-COther ProviderActiveStart: August 01, 2023 End: August 23, 2023Nikki Holm APRN-FNP-COther ProviderActiveStart: August 01, 2023 End: August 22enisela Britt , DOOther ProviderActiveStart: August 01, 2023 End: August 23, 2023Rohan Han DPMOther ProviderActiveStart: August 01, 2023 End: August 23, 2023Micboni Ramírez MDOther ProviderActiveStart: August 01, 2023 End: August 23, 2023Arnaldo Thomas MDAttending ProviderActiveStart: August 01, 2023 End: August 23, 2023 Team Status: Active Member Role Status Dates Tejas Stevens MD Primary Care Provider Active S tart: August 01, 2023 Geo Thomas , DOAdmit Provider, Attending Provider, Other Provider ActiveStart: August 01, 2023 Sury Winkler MDOther ProviderActiveStart: August 01, 2023 Chyna Molina 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 PRINTING PAPER-COther ProviderActiveStart: August 01, 2023 Rancho Kay MDOther ProviderActiveStart: August 01, 2023 José Miguel Willingham MDOther ProviderActiveStart: August 01, 2023 El Charles MDOther ProviderActiveStart: August 01, 2023 Sanket Hammer MDOther ProviderActiveStart: August 01, 2023 Megha Arriaga APRN ACNP-BCOther ProviderActiveStart: August 01, 2023 Fabio Camacho MDOther ProviderActiveStart: August 01, 2023 Mehul Garrett MDOther ProviderActiveStart: August 01, 2023 Mayra Mccarthy MDOther ProviderActiveStart: August 01, 2023 Sebastian Flores , DOOther ProviderActiveStart: August 01, 2023 Saige Jolley MDOther ProviderActiveStart: August 01, 2023 John Beyer MDOther ProviderActiveStart: August 01, 2023 Pravin Meza MDOther ProviderActiveStart: August 01, 2023 Andi Han , DOOther ProviderActiveStart: August 01, 2023 Fabiola Fernandes , DOOther ProviderActiveStart: August 01, 2023 Elder Varner MDOther ProviderActiveStart: August 01, 2023 Carlie Loyola RNOther ProviderActiveStart: August 01, 2023 Nisa Vargas , DOOther ProviderActiveStart: August 01, 2023 Tonya Doss MDOther ProviderActiveStart: August 01, 2023 Oni Doty MDOther ProviderActiveStart: August 01, 2023 Nick De MDOther ProviderActiveStart: August 01, 2023 Juan Haro MDOther ProviderActiveStart: August 01, 2023 Opal Juan APRNOther ProviderActiveStart: August 01, 2023 Mari Dinero MDOther ProviderActiveStart: August 01, 2023 Jermaine Youngblood MDOther ProviderActiveStart: August 01, 2023 Fermin More MDOther ProviderActiveStart: August 01, 2023 Monse Torres , STORAGE ENGINEER-BCOther ProviderActiveStart: August 01, 2023 Sharon Galvan MDOther ProviderActiveStart: August 01, 2023 Team Status: Active Member Role Status Dates Tejas Stevens MD Primary Care Provider Active S tart: August 01, 2023 Geo Thomas , DOAdmit Provider, Other ProviderActiveStart: August 01, 2023 Megha Arriaga APRN ACNP-BCOther ProviderActiveStart: August 01, 2023 Fabio Camacho MDOther ProviderActiveStart: August 01, 2023 Mehul Garrett MDOther ProviderActiveStart: August 01, 2023 Mayra Mccarthy MDOther ProviderActiveStart: August 01, 2023 Sebastian Flores , DOOther ProviderActiveStart: August 01, 2023 Saige Jolley MDOther ProviderActiveStart: August 01, 2023 John Beyer MDOther ProviderActiveStart: August 01, 2023 Pravin Meza MDOther ProviderActiveStart: August 01, 2023 Andi Han , DOOther ProviderActiveStart: August 01, 2023 Fabiola Fernandes , DOOther ProviderActiveStart: August 01, 2023 Elder Varner MDOther ProviderActiveStart: August 01, 2023 Sury Winkler MDOther ProviderActiveStart: August 01, 2023 Chyna Molina NP-COther ProviderActiveStart: August 01, 2023 Rancho Kay MDOther ProviderActiveStart: August 01, 2023 José Miguel Willingham MDOther ProviderActiveStart: August 01, 2023 El Charles MDOther ProviderActiveStart: August 01, 2023 Sanket Hammer MDOther ProviderActiveStart: August 01, 2023 Carlie Loyola RNOther ProviderActiveStart: August 01, 2023 Chip Bravo MDAttending Provider, Other ProviderActiveStart: August 01, 2023 Alec Carter MDOther ProviderActiveStart: August 01, 2023 Deyanira Jaime MDOther ProviderActiveStart: August 01, 2023 Team Status: Active Member Role Status Dates Tejas Stevens MD Primary Care Provider Active S tart: August 01, 2023 Geo Thomas , DOAdmit Provider, Other ProviderActiveStart: August 01, 2023 Megha Arriaga APRN ACNP-BCOther ProviderActiveStart: August 01, 2023 Fabio Camacho MDOther ProviderActiveStart: August 01, 2023 Mehul Garrett MDOther ProviderActiveStart: August 01, 2023 Mayra Mccarthy MDOther ProviderActiveStart: August 01, 2023 Sebastian Flores , DOOther ProviderActiveStart: August 01, 2023 Saige Jolley MDOther ProviderActiveStart: August 01, 2023 John Beyer MDOther ProviderActiveStart: August 01, 2023 Pravin Meza MDOther ProviderActiveStart: August 01, 2023 Andi Han , DOOther ProviderActiveStart: August 01, 2023 Fabiola Fernandes , DOOther ProviderActiveStart: August 01, 2023 Elder Varner MDOther ProviderActiveStart: August 01, 2023 Anai Wongending Provider, Other ProviderActiveStart: August 01, 2023 Chyna Molina , 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 PRINTING PAPER-COther ProviderActiveStart: August 01, 2023 Rancho Kay MDOther ProviderActiveStart: August 01, 2023 José Miguel Willingham MDOther ProviderActiveStart: August 01, 2023 El Charles MDOther ProviderActiveStart: August 01, 2023 Sanket Hammer MDOther ProviderActiveStart: August 01, 2023 Team Status: Active Member Role Status Dates Tejas Stevens MD Primary Care Provider Active S tart: August 02, 2023 Geo Thomas , DOAdmit ProviderActiveStart: August 02, 2023 Megha Arriaga APRN ACNP-BCOther ProviderActiveStart: August 02, 2023 Fabio Camacho MDOther ProviderActiveStart: August 02, 2023 Mehul Garrett MDOther ProviderActiveStart: August 02, 2023 Mayra Mccarthy MDOther ProviderActiveStart: August 02, 2023 Sebastian Flores DOOther ProviderActiveStart: August 02, 2023 Saige Jolley MDOther ProviderActiveStart: August 02, 2023 John Beyer MDOther ProviderActiveStart: August 02, 2023 Pravin Meza MDOther ProviderActiveStart: August 02, 2023 Andi Han , DOOther ProviderActiveStart: August 02, 2023 Fabiola Fernandes , DOOther ProviderActiveStart: August 02, 2023 Ahsan Guerra Provider, Other ProviderActiveStart: August 02, 2023 Sury Winkler MDOther ProviderActiveStart: August 02, 2023 Chyna Molina 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 PRINTING PAPER-COther ProviderActiveStart: August 02, 2023 Rancho Kay MDOther ProviderActiveStart: August 02, 2023 José Miguel Willingham MDOther ProviderActiveStart: August 02, 2023 El Charles MDOther ProviderActiveStart: August 02, 2023 Sanket Hammer MDOther ProviderActiveStart: August 02, 2023 Eulogio Ruvalcaba MDOther ProviderActiveStart: August 02, 2023 Team Status: Active Member Role Status Dates Tejas Stevens MD Primary Care Provider Active S tart: August 08, 2023 Geo Thomas , DOAdmit ProviderActiveStart: August 08, 2023 Megha Arriaga , CHOIR MEMBER ACNP-BCOther ProviderActiveStart: August 08, 2023 Fabio Camacho MDOther ProviderActiveStart: August 08, 2023 Mehul Garrett MDOther ProviderActiveStart: August 08, 2023 Mayra Mccarthy MDOther ProviderActiveStart: August 08, 2023 Sebastian Flores , DOOther ProviderActiveStart: August 08, 2023 Saige Jolley MDOther ProviderActiveStart: August 08, 2023 John Beyer MDOther ProviderActiveStart: August 08, 2023 Pravin Meza MDOther ProviderActiveStart: August 08, 2023 Andi Han DOOther ProviderActiveStart: August 08, 2023 Fabiola Fernandes , DOOther ProviderActiveStart: August 08, 2023 Elder Varner MDOther ProviderActiveStart: August 08, 2023 Sury Winkler MDOther ProviderActiveStart: August 08, 2023 Chyna Molina NP-COther ProviderActiveStart: August 08, 2023 Rancho Kay MDOther ProviderActiveStart: August 08, 2023 José Miguel Willingham MDOther ProviderActiveStart: August 08, 2023 El Charles MDOther ProviderActiveStart: August 08, 2023 Sanket Hammer MDOther ProviderActiveStart: August 08, 2023 Vania Chacon MDAttending Provider, Other ProviderActiveStart: August 08, 2023 Tika Rochather ProviderActiveStart: August 08, 2023 Debbie Dennis DOOther ProviderActiveStart: August 08, 2023 Claude Lackey MDOther ProviderActiveStart: August 08, 2023 Mehul Cordon , DOOther ProviderActiveStart: August 08, 2023 Sindy Grimes , ANP-BCOther ProviderActiveStart: August 08, 2023 Pravin Rivers , DOOther ProviderActiveStart: August 08, 2023 Munira Kamara , APRNOther ProviderActiveStart: August 08, 2023 Crystal Casey , 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 PRINTING PAPER-COther ProviderActiveStart: August 08, 2023 Nikki Holm , PJRY-FDZ-SDahfn ProviderActiveStart: August 08, 2023 Team Status: Active Member Role Status Dates Tejas Stevens MD Primary Care Provider Active S tart: August 08, 2023 Geo Thomas , DOAdmit ProviderActiveStart: August 08, 2023 Megah Arriaga , CHOIR MEMBER ACNP-BCOther ProviderActiveStart: August 08, 2023 Fabio Camacho MDOther ProviderActiveStart: August 08, 2023 Mehul Garrett MDOther ProviderActiveStart: August 08, 2023 Mayra Mccarthy MDOther ProviderActiveStart: August 08, 2023 Sebastian Flores , DOOther ProviderActiveStart: August 08, 2023 Saige Jolley MDOther ProviderActiveStart: August 08, 2023 John Beyer MDOther ProviderActiveStart: August 08, 2023 Pravin Meza MDOther ProviderActiveStart: August 08, 2023 Andi Han , DOOther ProviderActiveStart: August 08, 2023 Fabiola Fernandes , DOOther ProviderActiveStart: August 08, 2023 Elder Varner MDOther ProviderActiveStart: August 08, 2023 Sury Winkler MDOther ProviderActiveStart: August 08, 2023 Chyna Molina , 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 PRINTING PAPER-COther ProviderActiveStart: August 08, 2023 Rancho Kay MDOther ProviderActiveStart: August 08, 2023 José Miguel Willingham MDOther ProviderActiveStart: August 08, 2023 El Charles MDOther ProviderActiveStart: August 08, 2023 Sanket Hammer , MDAttending Provider, Other ProviderActiveStart: August 08, 2023 Vania Chacon MDOther ProviderActiveStart: August 08, 2023 Tika Rochather ProviderActiveStart: August 08, 2023 Debbie Dennis , DOOther ProviderActiveStart: August 08, 2023 Claude Lackey MDOther ProviderActiveStart: August 08, 2023 Mehul Cordon , DOOther ProviderActiveStart: August 08, 2023 Sindy Grimes , ANP-BCOther ProviderActiveStart: August 08, 2023 Pravin Rivers , DOOther ProviderActiveStart: August 08, 2023 Munira Kamara , APRNOther ProviderActiveStart: August 08, 2023 Crystal Casey , 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 PRINTING PAPER-COther ProviderActiveStart: August 08, 2023 Nikki Holm , KLNV-IQS-IEvrem ProviderActiveStart: August 08, 2023 Team Status: Active Member Role Status Dates Tejas Stevens MD Primary Care Provider Active S tart: August 09, 2023 Geo Thomas , DOAdmit ProviderActiveStart: August 09, 2023 Megha Arriaga CHOIR MEMBER ACNP-BCOther ProviderActiveStart: August 09, 2023 Fabio Camacho MDOther ProviderActiveStart: August 09, 2023 Mehul Garrett , MDAttending Provider, Other ProviderActiveStart: August 09, 2023 Mayra Mccarthy MDOther ProviderActiveStart: August 09, 2023 Sebastian Flores , DOOther ProviderActiveStart: August 09, 2023 Saige Jolley MDOther ProviderActiveStart: August 09, 2023 John Beyer MDOther ProviderActiveStart: August 09, 2023 Pravin Meza MDOther ProviderActiveStart: August 09, 2023 Andi Han , DOOther ProviderActiveStart: August 09, 2023 Fabiola Fernandes , DOOther ProviderActiveStart: August 09, 2023 Elder Varner MDOther ProviderActiveStart: August 09, 2023 Sury Winkler MDOther ProviderActiveStart: August 09, 2023 Chyna Molina , 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 PRINTING PAPER-COther ProviderActiveStart: August 09, 2023 Rancho Kay MDOther ProviderActiveStart: August 09, 2023 José Miguel Willingham MDOther ProviderActiveStart: August 09, 2023 El Charles MDOther ProviderActiveStart: August 09, 2023 Sanket Hammer MDOther ProviderActiveStart: August 09, 2023 Tika Rochather ProviderActiveStart: August 09, 2023 Debbie Dennis , DOOther ProviderActiveStart: August 09, 2023 Claude Lackey MDOther ProviderActiveStart: August 09, 2023 Mehul Cordon , DOOther ProviderActiveStart: August 09, 2023 Sindy Grimes , ANP-BCOther ProviderActiveStart: August 09, 2023 Pravin Rivers , DOOther ProviderActiveStart: August 09, 2023 Munira Kamara , APRNOther ProviderActiveStart: August 09, 2023 Crystal Casey 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 PRINTING PAPER-COther ProviderActiveStart: August 09, 2023 Nikki Holm [id number] ProviderActiveStart: August 09, 2023 Eulogio Ruvalcaba MDOther ProviderActiveStart: August 09, 2023 Team Status: Active Member Role Status Dates Tejas Stevens MD Primary Care Provider Active S tart: August 15, 2023 Geo Thomas , DOAdmit Provider, Attending Provider, Other Provider ActiveStart: August 15, 2023 Megha Arriaga , CHOIR MEMBER ACNP-BCOther ProviderActiveStart: August 15, 2023 Fabio Camacho MDOther ProviderActiveStart: August 15, 2023 Mehul Garrett MDOther ProviderActiveStart: August 15, 2023 Mayra Mccarthy MDOther ProviderActiveStart: August 15, 2023 Sebastian Flores DOOther ProviderActiveStart: August 15, 2023 Saige Jolley MDOther ProviderActiveStart: August 15, 2023 John Beyer MDOther ProviderActiveStart: August 15, 2023 Pravin Meza MDOther ProviderActiveStart: August 15, 2023 Andi Han , DOOther ProviderActiveStart: August 15, 2023 Fabiola Fernandes , DOOther ProviderActiveStart: August 15, 2023 Elder Varner MDOther ProviderActiveStart: August 15, 2023 Sury Winkler MDOther ProviderActiveStart: August 15, 2023 Chyna Molina , 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 PRINTING PAPER-COther ProviderActiveStart: August 15, 2023 Rancho Kay MDOther ProviderActiveStart: August 15, 2023 José Miguel Willingham MDOther ProviderActiveStart: August 15, 2023 El Charles MDOther ProviderActiveStart: August 15, 2023 Sanket Hammer MDOther ProviderActiveStart: August 15, 2023 Tika Rochather ProviderActiveStart: August 15, 2023 Debbie Dennis , DOOther ProviderActiveStart: August 15, 2023 Claude Lackey MDOther ProviderActiveStart: August 15, 2023 Mehul Cordon , DOOther ProviderActiveStart: August 15, 2023 Sindy Grimes , ANP-BCOther ProviderActiveStart: August 15, 2023 Pravin Rivers , DOOther ProviderActiveStart: August 15, 2023 Munira Kamara , APRNOther ProviderActiveStart: August 15, 2023 Crystal Casey , 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 PRINTING PAPER-COther ProviderActiveStart: August 15, 2023 Nikki Holm , VGZL-OPQ-LFopoj ProviderActiveStart: August 15, 2023 Darryl Britt , DOOther ProviderActiveStart: August 15, 2023 Rohan Han , DPMOther ProviderActiveStart: August 15, 2023 Team Status: Active Member Role Status Dates Tejas Stevens MD Primary Care Provider Active S tart: August 15, 2023 Geo Thomas , DOAdmit Provider, Other ProviderActiveStart: August 15, 2023 Megha Arriaga , CHOIR MEMBER ACNP-BCOther ProviderActiveStart: August 15, 2023 Fabio Camacho MDOther ProviderActiveStart: August 15, 2023 Mehul Garrett MDOther ProviderActiveStart: August 15, 2023 Mayra Mccarthy MDOther ProviderActiveStart: August 15, 2023 Sebastian Flores , DOOther ProviderActiveStart: August 15, 2023 Saige Jolley MDOther ProviderActiveStart: August 15, 2023 John Beyer MDOther ProviderActiveStart: August 15, 2023 Pravin Meza MDOther ProviderActiveStart: August 15, 2023 Andi Han , DOOther ProviderActiveStart: August 15, 2023 Fabiola Fernandes , DOOther ProviderActiveStart: August 15, 2023 Elder Varner MDOther ProviderActiveStart: August 15, 2023 Sury Winkler MDOther ProviderActiveStart: August 15, 2023 Chyna Molina , 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 PRINTING PAPER-COther ProviderActiveStart: August 15, 2023 Rancho Kay , MDAttending Provider, Other ProviderActiveStart: August 15, 2023 José Miguel Willingham MDOther ProviderActiveStart: August 15, 2023 El Charles MDOther ProviderActiveStart: August 15, 2023 Sanket Hammer MDOther ProviderActiveStart: August 15, 2023 Tika Rochather ProviderActiveStart: August 15, 2023 Debbie Dennis , DOOther ProviderActiveStart: August 15, 2023 Claude Lackey MDOther ProviderActiveStart: August 15, 2023 Mehul Cordon , DOOther ProviderActiveStart: August 15, 2023 Sindy Grimes , ANP-BCOther ProviderActiveStart: August 15, 2023 Pravin Rivers , DOOther ProviderActiveStart: August 15, 2023 Munira Kamara , APRNOther ProviderActiveStart: August 15, 2023 Crystal Casey , 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 PRINTING PAPER-COther ProviderActiveStart: August 15, 2023 Nikki Holm , WXXL-DPW-VFqmwx ProviderActiveStart: August 15, 2023 Darryl Britt , DOOther ProviderActiveStart: August 15, 2023 Rohan Han , DPMOther ProviderActiveStart: August 15, 2023 Team Status: Active Member Role Status Dates Tejas Stevens MD Primary Care Provider Active S tart: August 16, 2023 Geo Thomas , DOAdmit Provider, Other ProviderActiveStart: August 16, 2023 Megha Arriaga , CHOIR MEMBER ACNP-BCOther ProviderActiveStart: August 16, 2023 Fabio Camacho MDOther ProviderActiveStart: August 16, 2023 Mehul Garrett MDOther ProviderActiveStart: August 16, 2023 Mayra Mccarthy MDOther ProviderActiveStart: August 16, 2023 Sebastian Flores , DOOther ProviderActiveStart: August 16, 2023 Saige Jolley MDOther ProviderActiveStart: August 16, 2023 John Beyer MDOther ProviderActiveStart: August 16, 2023 Pravin Meza MDOther ProviderActiveStart: August 16, 2023 Andi Han , DOOther ProviderActiveStart: August 16, 2023 Fabiola Fernandes , DOOther ProviderActiveStart: August 16, 2023 Elder Varner MDOther ProviderActiveStart: August 16, 2023 Sury Winkler MDOther ProviderActiveStart: August 16, 2023 Chyna Molina NP-COther ProviderActiveStart: August 16, 2023 Rancho Kay MDOther ProviderActiveStart: August 16, 2023 José Miguel Willingham MDOther ProviderActiveStart: August 16, 2023 El Charles MDOther ProviderActiveStart: August 16, 2023 Sanket Hammer MDOther ProviderActiveStart: August 16, 2023 Tika Rochather ProviderActiveStart: August 16, 2023 Debbie Dennis , DOOther ProviderActiveStart: August 16, 2023 Claude Lackey MDOther ProviderActiveStart: August 16, 2023 Mehul Cordon , DOOther ProviderActiveStart: August 16, 2023 Sindy Grimes , ANP-BCOther ProviderActiveStart: August 16, 2023 Pravin Rivers , DOOther ProviderActiveStart: August 16, 2023 Munira Kamara , APRNOther ProviderActiveStart: August 16, 2023 Crystal Casey , 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 PRINTING PAPER-COther ProviderActiveStart: August 16, 2023 Nikki Holm , WFKE-POG-PFmdvd ProviderActiveStart: August 16, 2023 Darryl Britt , DOOther ProviderActiveStart: August 16, 2023 Rohan Han , DPMOther ProviderActiveStart: August 16, 2023 Morales Dasilva , MDAttending ProviderActiveStart: August 16, 2023 Team Status: Active Member Role Status Dates Tejas Stevens MD Primary Care Provider Active S tart: August 17, 2023 Geo Thomas , DOAdmit Provider, Other ProviderActiveStart: August 17, 2023 Megha Arriaga , CHOIR MEMBER ACNP-BCOther ProviderActiveStart: August 17, 2023 Fabio Camacho MDOther ProviderActiveStart: August 17, 2023 Mehul Garrett MDOther ProviderActiveStart: August 17, 2023 Mayra Mccarthy MDOther ProviderActiveStart: August 17, 2023 Sebastian Flores , DOOther ProviderActiveStart: August 17, 2023 Saige Jolley MDOther ProviderActiveStart: August 17, 2023 John Beyer MDOther ProviderActiveStart: August 17, 2023 Pravin Meza MDOther ProviderActiveStart: August 17, 2023 Andi Han , DOOther ProviderActiveStart: August 17, 2023 Fabiola Fernandes , DOOther ProviderActiveStart: August 17, 2023 Elder Varner MDOther ProviderActiveStart: August 17, 2023 Sury Winkler MDOther ProviderActiveStart: August 17, 2023 Chyna Molina , 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 PRINTING PAPER-COther ProviderActiveStart: August 17, 2023 Rancho Kay MDOther ProviderActiveStart: August 17, 2023 José Miguel Willingham MDOther ProviderActiveStart: August 17, 2023 El Charles MDOther ProviderActiveStart: August 17, 2023 Sanket Hammer MDOther ProviderActiveStart: August 17, 2023 Tika Rochather ProviderActiveStart: August 17, 2023 Debbie Dennis , DOOther ProviderActiveStart: August 17, 2023 Claude Lackey MDOther ProviderActiveStart: August 17, 2023 Mehul Cordon , DOOther ProviderActiveStart: August 17, 2023 Sindy Grimes , ANP-BCOther ProviderActiveStart: August 17, 2023 Pravin Rivers , DOOther ProviderActiveStart: August 17, 2023 Munira Kamara , APRNOther ProviderActiveStart: August 17, 2023 Crystal Casey , 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 PRINTING PAPER-COther ProviderActiveStart: August 17, 2023 Nikki Holm , FPWO-TOU-PHtfck ProviderActiveStart: August 17, 2023 Darryl Britt , DOOther ProviderActiveStart: August 17, 2023 Rohan Han , DPMOther ProviderActiveStart: August 17, 2023 Michael Ramírez , MDAttending Provider, Other ProviderActiveStart: August 17, 2023 Team Status: Active Member Role Status Dates Tejas Stevens MD Primary Care Provider Active S tart: August 22, 2023 Geo Thomas , DOAdmit ProviderActiveStart: August 22, 2023 Megha Arriaga , CHOIR MEMBER ACNP-BCOther ProviderActiveStart: August 22, 2023 Fabio Camacho MDOther ProviderActiveStart: August 22, 2023 Mehul Garrett MDOther ProviderActiveStart: August 22, 2023 Mayra Mccarthy MDOther ProviderActiveStart: August 22, 2023 Sebastian Flores , DOOther ProviderActiveStart: August 22, 2023 Saige Jolley MDOther ProviderActiveStart: August 22, 2023 John Beyer MDOther ProviderActiveStart: August 22, 2023 Pravin Meza MDOther ProviderActiveStart: August 22, 2023 Andi Han , DOOther ProviderActiveStart: August 22, 2023 Fabiola Fernandes , DOOther ProviderActiveStart: August 22, 2023 Elder Varner MDOther ProviderActiveStart: August 22, 2023 Sury Winkler , MDAttending Provider, Other ProviderActiveStart: August 22, 2023 Chyna Molina , 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 PRINTING PAPER-COther ProviderActiveStart: August 22, 2023 Rancho Kay MDOther ProviderActiveStart: August 22, 2023 José Miguel Willingham MDOther ProviderActiveStart: August 22, 2023 El Charles MDOther ProviderActiveStart: August 22, 2023 Sanket Hammer MDOther ProviderActiveStart: August 22, 2023 Tika Rochather ProviderActiveStart: August 22, 2023 Debbie Dennis , DOOther ProviderActiveStart: August 22, 2023 Claude Lackey MDOther ProviderActiveStart: August 22, 2023 Mehul Cordon , DOOther ProviderActiveStart: August 22, 2023 Sindy Grimes ANP-BCOther ProviderActiveStart: August 22, 2023 Pravin Rivers , DOOther ProviderActiveStart: August 22, 2023 Munira Kamara , APRNOther ProviderActiveStart: August 22, 2023 Crystal Casey 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 PRINTING PAPER-COther ProviderActiveStart: August 22, 2023 Nikki Holm [id number]-ZQcsuz ProviderActiveStart: August 22, 2023 Darryl Britt , DOOther ProviderActiveStart: August 22, 2023 Rohan Han DPMOther ProviderActiveStart: August 22, 2023 Michael Ramírez MDOther ProviderActiveStart: August 22, 2023 Arnaldo Thomas MDOther ProviderActiveStart: August 22, 2023 Team Status: Active Member Role Status Dates Tejas Stevens MD Primary Care Provider Active S tart: August 22, 2023 Geo Thomas , DOAdmit ProviderActiveStart: August 22, 2023 Megha Arriaga APRN ACNP-BCOther ProviderActiveStart: August 22, 2023 Fabio Camacho MDOther ProviderActiveStart: August 22, 2023 Mehul Garrett MDOther ProviderActiveStart: August 22, 2023 Mayra Mccarthy MDOther ProviderActiveStart: August 22, 2023 Sebastian Flores , DOOther ProviderActiveStart: August 22, 2023 Saige Jolley MDOther ProviderActiveStart: August 22, 2023 John Beyer MDOther ProviderActiveStart: August 22, 2023 Pravin Meza MDOther ProviderActiveStart: August 22, 2023 Andi Han , DOOther ProviderActiveStart: August 22, 2023 Fabiola Fernandes , DOOther ProviderActiveStart: August 22, 2023 Elder Varner MDOther ProviderActiveStart: August 22, 2023 Sury Winkler MDOther ProviderActiveStart: August 22, 2023 Chyna Molina , 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 PRINTING PAPER-COther ProviderActiveStart: August 22, 2023 Rancho aKy MDOther ProviderActiveStart: August 22, 2023 José Miguel Willingham MDOther ProviderActiveStart: August 22, 2023 El Charles MDOther ProviderActiveStart: August 22, 2023 Sanket Hammer MDOther ProviderActiveStart: August 22, 2023 Tika Rochather ProviderActiveStart: August 22, 2023 Debbie Dennis , DOOther ProviderActiveStart: August 22, 2023 Claude Lackey MDOther ProviderActiveStart: August 22, 2023 Mehul Cordon , DOOther ProviderActiveStart: August 22, 2023 Sindy Grimes , ANP-BCOther ProviderActiveStart: August 22, 2023 Pravin Rivers , DOOther ProviderActiveStart: August 22, 2023 Munira Kamara , APRNOther ProviderActiveStart: August 22, 2023 Crystal Casey , 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 PRINTING PAPER-COther ProviderActiveStart: August 22, 2023 Nikki oHlm , NHFM-GQA-HClirk ProviderActiveStart: August 22, 2023 Darryl Britt , DOOther ProviderActiveStart: August 22, 2023 Rohan Han , DPMOther ProviderActiveStart: August 22, 2023 Michael Ramírez MDOther ProviderActiveStart: August 22, 2023 Arnaldo Thomas , MDAttending Provider, Other ProviderActiveStart: August 22, 2023 Team Status: Active Member Role Status Dates Tejas Stevens MD Primary Care Provider Active S tart: August 23, 2023 Geo Thomas , DOAdmit ProviderActiveStart: August 23, 2023 Megha Arriaga APRN ACNP-BCOther ProviderActiveStart: August 23, 2023 Fabio Camacho MDOther ProviderActiveStart: August 23, 2023 Mehul Garrett MDOther ProviderActiveStart: August 23, 2023 Mayra Mccarthy MDOther ProviderActiveStart: August 23, 2023 Sebastian Flores , DOOther ProviderActiveStart: August 23, 2023 Saige Jolley MDOther ProviderActiveStart: August 23, 2023 John Beyer MDOther ProviderActiveStart: August 23, 2023 Pravin Meza MDOther ProviderActiveStart: August 23, 2023 Andi Han , DOOther ProviderActiveStart: August 23, 2023 Fabiola Fernandes , DOOther ProviderActiveStart: August 23, 2023 Elder Varner MDOther ProviderActiveStart: August 23, 2023 Sury Winkler MDOther ProviderActiveStart: August 23, 2023 Chyna Molina NP-COther ProviderActiveStart: August 23, 2023 Rancho Kay MDOther ProviderActiveStart: August 23, 2023 José Miguel Willingham MDOther ProviderActiveStart: August 23, 2023 El Charles MDOther ProviderActiveStart: August 23, 2023 Sanket Hammer MDOther ProviderActiveStart: August 23, 2023 Tika Jaime ProviderActiveStart: August 23, 2023 Debbie Dennis , DOOther ProviderActiveStart: August 23, 2023 Claude Lackey MDOther ProviderActiveStart: August 23, 2023 Mehul Cordon , DOOther ProviderActiveStart: August 23, 2023 Sindy Grimes ANP-BCOther ProviderActiveStart: August 23, 2023 Pravin Rivers , DOOther ProviderActiveStart: August 23, 2023 Munira Kamara , APRNOther ProviderActiveStart: August 23, 2023 Crystal Casey , 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 PRINTING PAPER-COther ProviderActiveStart: August 23, 2023 Nikki Holm , PGRY-ZLI-JLkqmw ProviderActiveStart: August 23, 2023 Darryl Britt , DOOther ProviderActiveStart: August 23, 2023 Rohan Han , DPMOther ProviderActiveStart: August 23, 2023 Michael Ramírez MDOther ProviderActiveStart: August 23, 2023 Arnaldo Thomas MDOther ProviderActiveStart: August 23, 2023 Mariia Reyna MDAttending ProviderActiveStart: August 23, 2023 Team Status: Active Member Role Status Dates Tejas Stevens MD Primary Care Provider Active S tart: July 28, 2023 Ahsan Red ProviderActiveStart: July 28, 2023 Team Status: Active Member Role Status Dates Tejas Stevens MD Primary Care Provider Active S tart: August 01, 2023 End: August 23, 2023Geo Thomas , DOAdmit Provider, Attending Provider, Other ProviderActiveStart: August 01, 2023 End: August 23, 2023Sury Winkler MDOther ProviderActiveStart: August 01, 2023 End: August 23, 2023Chyna Molina , 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 PRINTING PAPER-COther ProviderActiveStart: August 01, 2023 End: August 22wilmar Kay MDOther ProviderActiveStart: August 01, 2023 End: August 23, 2023José Miguel Willingham MDOther ProviderActiveStart: August 01, 2023 End: August 23, 2023Suseble Charles MDOther ProviderActiveStart: August 01, 2023 End: August 22corin Hammer MDOther ProviderActiveStart: August 01, 2023 End: August 23, 2023Megha Arriaga APRN ACNP-BCOther ProviderActiveStart: August 01, 2023 End: August 23, 2023Fabio Camacho MDOther ProviderActiveStart: August 01, 2023 End: August 22galina Garrett MDOther ProviderActiveStart: August 01, 2023 End: August 23, 2023Mohamshannan Mccarthy MDOther ProviderActiveStart: August 01, 2023 End: August 23, 2023Sebastian Flores , DOOther ProviderActiveStart: August 01, 2023 End: August 23, 2023Saige Jolley MDOther ProviderActiveStart: August 01, 2023 End: August 23, 2023John Beyer MDOther ProviderActiveStart: August 01, 2023 End: August 22abby Meza MDOther ProviderActiveStart: August 01, 2023 End: August 22rio Han DOOther ProviderActiveStart: August 01, 2023 End: August 23, 2023Fabiola Fernandes DOOther ProviderActiveStart: August 01, 2023 End: August 22asefranco Varner MDOther ProviderActiveStart: August 01, 2023 End: August 23, 2023Carlie Loyola RNOther ProviderActiveStart: August 01, 2023 End: August 23, 2023W Osmani Vargas , Other ProviderActiveStart: August 01, 2023 End: August 23, 2023Tonya Doss MDOther ProviderActiveStart: August 01, 2023 End: August 23, 2023Oni Doty MDOther ProviderActiveStart: August 01, 2023 End: August 23, 2023Nick De MDOther ProviderActiveStart: August 01, 2023 End: August 22marisa Haro MDOther ProviderActiveStart: August 01, 2023 End: August 22Chastity Catesher ProviderActiveStart: August 01, 2023 End: August 23, 2023Bianca Kuhn ProviderActiveStart: August 01, 2023 End: August 23, 2023Bianca Kumari ProviderActiveStart: August 01, 2023 End: August 23, 2023Tarek Derik , MDOther ProviderActiveStart: August 01, 2023 End: August 22nohemy Torres , STORAGE ENGINEER-BCOther ProviderActiveStart: August 01, 2023 End: August 23, 2023Sharon Galvan MDOther ProviderActiveStart: August 01, 2023 End: August 23, 2023 Team Status: Active Member Role Status Dates Tejas Stevens MD Primary Care Provider Active S tart: August 01, 2023 End: August 23, 2023Geo Thomas , DOAdmit Provider, Other Provider ActiveStart: August 01, 2023 End: August 23, 2023Hepriya Arriaga APRN ACNP-BCOther ProviderActiveStart: August 01, 2023 End: August 23, 2023Fabio Camacho MDOther ProviderActiveStart: August 01, 2023 End: August 22galina Garrett MDOther ProviderActiveStart: August 01, 2023 End: August 23, 2023Mohamshannan Mccarthy MDOther ProviderActiveStart: August 01, 2023 End: August 23, 2023Sebastian Flores DOOther ProviderActiveStart: August 01, 2023 End: August 23, 2023Saige Jolley MDOther ProviderActiveStart: August 01, 2023 End: August 23, 2023John Beyer MDOther ProviderActiveStart: August 01, 2023 End: August 22abby Meza MDOther ProviderActiveStart: August 01, 2023 End: August 22rio Han DOOther ProviderActiveStart: August 01, 2023 End: August 23, 2023Fabiola Fernandes DOOther ProviderActiveStart: August 01, 2023 End: August 22samuel Varner MDOther ProviderActiveStart: August 01, 2023 End: August 23, 2023Sury Winkler MDOther ProviderActiveStart: August 01, 2023 End: August 23, 2023Geovany Marcher ProviderActiveStart: August 01, 2023 End: August 22wilmar Kay MDOther ProviderActiveStart: August 01, 2023 End: August 23, 2023José Miguel Willingham MDOther ProviderActiveStart: August 01, 2023 End: August 23, 2023Bianca Callaway ProviderActiveStart: August 01, 2023 End: August 22Bianca Alexandre ProviderActiveStart: August 01, 2023 End: August 23, 2023Carlie Loyola RNOther ProviderActiveStart: August 01, 2023 End: August 23, 2023StAnai Cordovaending Provider, Other ProviderActive Start: August 01, 2023 End: August 23, 2023Gejosé Carter MDOther ProviderActiveStart: August 01, 2023 End: August 23, 2023Deyanira Jaime MDOther ProviderActiveStart: August 01, 2023 End: August 23, 2023 Team Status: Active Member Role Status Dates Tejas Stevens MD Primary Care Provider Active S tart: August 01, 2023 End: August 23, 2023Geo Thomas DOAdmit Provider, Other Provider ActiveStart: August 01, 2023 End: August 23, 2023Hepriya Arriaga APRN ACNP-BCOther ProviderActiveStart: August 01, 2023 End: August 23, 2023Fabio Camacho MDOther ProviderActiveStart: August 01, 2023 End: August 22galina Garrett MDOther ProviderActiveStart: August 01, 2023 End: August 23, 2023Mohamshannan Mccarthy MDOther ProviderActiveStart: August 01, 2023 End: August 23, 2023Sebastian Flores DOOther ProviderActiveStart: August 01, 2023 End: August 23, 2023Saige Jolley MDOther ProviderActiveStart: August 01, 2023 End: August 23, 2023John Beyer MDOther ProviderActiveStart: August 01, 2023 End: August 22abby Meza MDOther ProviderActiveStart: August 01, 2023 End: August 22rio Han DOOther ProviderActiveStart: August 01, 2023 End: August 23, 2023Fabiola Fernandes DOOther ProviderActiveStart: August 01, 2023 End: August 22samuel Varner MDOther ProviderActiveStart: August 01, 2023 End: August 23, 2023Sury Winkler MDAttending Provider, Other ProviderActive Start: August 01, 2023 End: August 23, 2023Geovany Marcher ProviderActiveStart: August 01, 2023 End: August 22wilmar Kay MDOther ProviderActiveStart: August 01, 2023 End: August 23, 2023Gimelvina Willingham MDOther ProviderActiveStart: August 01, 2023 End: August 23, 2023SuBianca Hernandez ProviderActiveStart: August 01, 2023 End: August 22corin Hammer MDOther ProviderActiveStart: August 01, 2023 End: August 23, 2023 Team Status: Active Member Role Status Dates Tejas Stevens MD Primary Care Provider Active S tart: August 02, 2023 End: August 23, 2023Krlaura Thomas , DOAdmit ProviderActiveStart: August 02, 2023 End: August 23, 2023Hepriya Arriaga APRN ACNP-BCOther ProviderActiveStart: August 02, 2023 End: August 23, 2023Fabio Camacho MDOther ProviderActiveStart: August 02, 2023 End: August 22galina Garrett MDOther ProviderActiveStart: August 02, 2023 End: August 23, 2023Mosilvano Mccarthy MDOther ProviderActiveStart: August 02, 2023 End: August 23, 2023Sebastian Flores DOOther ProviderActiveStart: August 02, 2023 End: August 23, 2023Saige Jolley MDOther ProviderActiveStart: August 02, 2023 End: August 23, 2023John Beyer MDOther ProviderActiveStart: August 02, 2023 End: August 22abby Meza MDOther ProviderActiveStart: August 02, 2023 End: August 22rio Han , DOOther ProviderActiveStart: August 02, 2023 End: August 23, 2023Fabiola Fernandes , Other ProviderActiveStart: August 02, 2023 End: August 22asefranco Varner MDAttending Provider, Other ProviderActive Start: August 02, 2023 End: August 23, 2023Sury Winkler MDOther ProviderActiveStart: August 02, 2023 End: August 23, 2023Chyna Molina NP-COther ProviderActiveStart: August 02, 2023 End: August 22wilmar Kay MDOther ProviderActiveStart: August 02, 2023 End: August 23, 2023Gimelvina Willingham MDOther ProviderActiveStart: August 02, 2023 End: August 23, 2023Suseble Charels MDOther ProviderActiveStart: August 02, 2023 End: August 22corin Hammer MDOther ProviderActiveStart: August 02, 2023 End: August 23, 2023Musmartha uRvalcaba MDOther ProviderActiveStart: August 02, 2023 End: August 23, 2023 Team Status: Active Member Role Status Dates Tejas Stevens MD Primary Care Provider Active S tart: August 04, 2023 End: August 23, 2023Krlaura Thomas , DOAdmit ProviderActiveStart: August 04, 2023 End: August 23, 2023Hepriya Arriaga APRN ACNP-BCOther ProviderActiveStart: August 04, 2023 End: August 23, 2023Bianca Gu ProviderActiveStart: August 04, 2023 End: August 22galina Garrett MDOther ProviderActiveStart: August 04, 2023 End: August 23, 2023Mosilvano Mccarthy MDOther ProviderActiveStart: August 04, 2023 End: August 23, 2023Sebastian Flores DOOther ProviderActiveStart: August 04, 2023 End: August 23, 2023Saige Jolley MDOther ProviderActiveStart: August 04, 2023 End: August 23, 2023Bianca Funes ProviderActiveStart: August 04, 2023 End: August 22Bianca [facility] ProviderActiveStart: August 04, 2023 End: August 22rio Han , DOOther ProviderActiveStart: August 04, 2023 End: August 23, 2023Fabiola Fernandes DOOther ProviderActiveStart: August 04, 2023 End: August 22aseBianca Ramos ProviderActiveStart: August 04, 2023 End: August 23, 2023Bianca Wong ProviderActiveStart: August 04, 2023 End: August 23, 2023Chyna Molina NP-COther ProviderActiveStart: August 04, 2023 End: August 22Bianca Hook ProviderActiveStart: August 04, 2023 End: August 23, 2023Gimelvina Willingham MDOther ProviderActiveStart: August 04, 2023 End: August 23, 2023SuBianca Hernandez ProviderActiveStart: August 04, 2023 End: August 22Bianca Alexandre ProviderActiveStart: August 04, 2023 End: August 22vasile Chacon MDAttending Provider, Other ProviderActive Start: August 04, 2023 End: August 23, 2023Katkaushal Jaime ProviderActiveStart: August 04, 2023 End: August 23, 2023Debbie Dennis DOOther ProviderActiveStart: August 04, 2023 End: August 23, 2023Claude Lackey MDOther ProviderActiveStart: August 04, 2023 End: August 22galina Cordon DOOther ProviderActiveStart: August 04, 2023 End: August 23, 2023FLOWER Ruiz-BCOther ProviderActiveStart: August 04, 2023 End: August 22abby Rivers DOOther ProviderActiveStart: August 04, 2023 End: August 22jacky Kamara , APRNOther ProviderActiveStart: August 04, 2023 End: August 22lauren Casey 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 PRINTING PAPER-COther ProviderActiveStart: August 04, 2023 End: August 23, 2023Nikki Holm APRN-FNP-COther ProviderActiveStart: August 04, 2023 End: August 23, 2023Naida Amaya , MDActiveStart: August 04, 2023 End: August 23, 2023 Team Status: Active Member Role Status Dates Tejas Stevens MD Primary Care Provider Active S tart: August 08, 2023 End: August 23, 2023Geo Thomas DOAdmit ProviderActiveStart: August 08, 2023 End: August 23, 2023Megha Arriaga APRN ACNP-BCOther ProviderActiveStart: August 08, 2023 End: August 23, 2023Fabio Camacho MDOther ProviderActiveStart: August 08, 2023 End: August 22galina Garrett MDOther ProviderActiveStart: August 08, 2023 End: August 23, 2023Mohamshannan Mccarthy MDOther ProviderActiveStart: August 08, 2023 End: August 23, 2023Sebastian Flores DOOther ProviderActiveStart: August 08, 2023 End: August 23, 2023Saige Jolley MDOther ProviderActiveStart: August 08, 2023 End: August 23, 2023John Beyer MDOther ProviderActiveStart: August 08, 2023 End: August 22abby Meza MDOther ProviderActiveStart: August 08, 2023 End: August 22rio Han DOOther ProviderActiveStart: August 08, 2023 End: August 23, 2023Fabiola Fernandes DOOther ProviderActiveStart: August 08, 2023 End: August 22samuel Varner MDOther ProviderActiveStart: August 08, 2023 End: August 23, 2023Sury Winkler MDOther ProviderActiveStart: August 08, 2023 End: August 23, 2023Chyna Molina NP-COther ProviderActiveStart: August 08, 2023 End: August 22Bianca Hook ProviderActiveStart: August 08, 2023 End: August 23, 2023José Miguel Willingham MDOther ProviderActiveStart: August 08, 2023 End: August 23, 2023Suseble Charles MDOther ProviderActiveStart: August 08, 2023 End: August 22corin Hammer MDAttending Provider, Other ProviderActive Start: August 08, 2023 End: August 22vasile Chacon MDOther ProviderActiveStart: August 08, 2023 End: August 23, 2023Katkaushal Jaime ProviderActiveStart: August 08, 2023 End: August 23, 2023Debbie Dennis DOOther ProviderActiveStart: August 08, 2023 End: August 23, 2023Strenae Lackey MDOther ProviderActiveStart: August 08, 2023 End: August 22galina Cordon DOOther ProviderActiveStart: August 08, 2023 End: August 23, 2023FeFLOWER Gann-BCOther ProviderActiveStart: August 08, 2023 End: August 22abby Rivers DOOther ProviderActiveStart: August 08, 2023 End: August 22jacky Kamara APRNOther ProviderActiveStart: August 08, 2023 End: August 22lauren Casey NP-COther ProviderActiveStart: August 08, 2023 End: August 23, 2023Nikki Holm APRN-FNP-COther ProviderActiveStart: August 08, 2023 End: August 23, 2023 Team Status: Active Member Role Status Dates Tejas Stevens MD Primary Care Provider Active S tart: August 09, 2023 End: August 23, 2023Rhett Larson ProviderActiveStart: August 09, 2023 End: August 23, 2023Hepriya Arriaga APRN ACNP-BCOther ProviderActiveStart: August 09, 2023 End: August 23, 2023Fabio Camacho MDOther ProviderActiveStart: August 09, 2023 End: August 22galina Garrett MDAttending Provider, Other ProviderActiveStart: August 09, 2023 End: August 23, 2023Mohamshannan Mccarthy MDOther ProviderActiveStart: August 09, 2023 End: August 23, 2023Sebastian Flores DOOther ProviderActiveStart: August 09, 2023 End: August 23, 2023Saige Jolley MDOther ProviderActiveStart: August 09, 2023 End: August 23, 2023Bianca Funes ProviderActiveStart: August 09, 2023 End: August 22abby Meza MDOther ProviderActiveStart: August 09, 2023 End: August 22rio Han DOOther ProviderActiveStart: August 09, 2023 End: August 23, 2023Natsilvia Fernandes DOOther ProviderActiveStart: August 09, 2023 End: August 22samuel Varner MDOther ProviderActiveStart: August 09, 2023 End: August 23, 2023Sury Winkler MDOther ProviderActiveStart: August 09, 2023 End: August 23, 2023Geovany Marcher ProviderActiveStart: August 09, 2023 End: August 22Bianca Hook ProviderActiveStart: August 09, 2023 End: August 23, 2023José Miguel Willingham MDOther ProviderActiveStart: August 09, 2023 End: August 23, 2023SuBianca Hernandez ProviderActiveStart: August 09, 2023 End: August 22Bianca Alexandre ProviderActiveStart: August 09, 2023 End: August 23, 2023Tika Rochather ProviderActiveStart: August 09, 2023 End: August 23, 2023Debbie Dennis DOOther ProviderActiveStart: August 09, 2023 End: August 23, 2023Strenae Lackey MDOther ProviderActiveStart: August 09, 2023 End: August 22galina Cordon DOOther ProviderActiveStart: August 09, 2023 End: August 23, 2023Fevirginia Grimes ANP-BCOther ProviderActiveStart: August 09, 2023 End: August 22abby Rivers , DOOther ProviderActiveStart: August 09, 2023 End: August 22ngsidra Kamara , APRNOther ProviderActiveStart: August 09, 2023 End: August 22ranolivier Casey 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 PRINTING PAPER-COther ProviderActiveStart: August 09, 2023 End: August 23, 2023Sajose Holm APRN-FNP-COther ProviderActiveStart: August 09, 2023 End: August 23, 2023Musmartha Ruvalcaba MDOther ProviderActiveStart: August 09, 2023 End: August 23, 2023 Team Status: Active Member Role Status Dates Tejas Stevens MD Primary Care Provider Active S tart: August 15, 2023 End: August 23, 2023Krlaura Thomas DOAdmit Provider, Attending Provider, Other ProviderActiveStart: August 15, 2023 End: August 23, 2023Hepriya Arriaga APRN ACNP-BCOther ProviderActiveStart: August 15, 2023 End: August 23, 2023Bianca Gu ProviderActiveStart: August 15, 2023 End: August 22galina Garrett MDOther ProviderActiveStart: August 15, 2023 End: August 23, 2023Mosilvano Mccarthy MDOther ProviderActiveStart: August 15, 2023 End: August 23, 2023Sebastian Flores DOOther ProviderActiveStart: August 15, 2023 End: August 23, 2023Saige Jolley MDOther ProviderActiveStart: August 15, 2023 End: August 23, 2023John Beyer MDOther ProviderActiveStart: August 15, 2023 End: August 22Bianca [facility] ProviderActiveStart: August 15, 2023 End: August 22rio Han DOOther ProviderActiveStart: August 15, 2023 End: August 23, 2023Fabiola Fernandes , Other ProviderActiveStart: August 15, 2023 End: August 22asefranco Varner MDOther ProviderActiveStart: August 15, 2023 End: August 23, 2023Bianca Wong ProviderActiveStart: August 15, 2023 End: August 23, 2023Chyna Molina NP-COther ProviderActiveStart: August 15, 2023 End: August 22wilmar Kay MDOther ProviderActiveStart: August 15, 2023 End: August 23, 2023José Miguel Willingham MDOther ProviderActiveStart: August 15, 2023 End: August 23, 2023SuBianca Hernandez ProviderActiveStart: August 15, 2023 End: August 22Bianca Alexandre ProviderActiveStart: August 15, 2023 End: August 23, 2023Tika Rochather ProviderActiveStart: August 15, 2023 End: August 23, 2023Tyra Carrera ProviderActiveStart: August 15, 2023 End: August 23, 2023Claude Lackey MDOther ProviderActiveStart: August 15, 2023 End: August 22galina Cordon DOOther ProviderActiveStart: August 15, 2023 End: August 23, 2023FLOWER Ruiz-BCOther ProviderActiveStart: August 15, 2023 End: August 22abby Rivers DOOther ProviderActiveStart: August 15, 2023 End: August 22jacky Kamara APRNOther ProviderActiveStart: August 15, 2023 End: August 22randy S Jacinto , 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 PRINTING PAPER-COther ProviderActiveStart: August 15, 2023 End: August 23, 2023Nikki Holm APRN-FNP-COther ProviderActiveStart: August 15, 2023 End: August 22enisela Britt DOOther ProviderActiveStart: August 15, 2023 End: August 23, 2023Rohan Han , DPMOther ProviderActiveStart: August 15, 2023 End: August 23, 2023 Team Status: Active Member Role Status Dates Tejas Stevens MD Primary Care Provider Active S tart: August 15, 2023 End: August 23, 2023Geo Thomas , DOAdmit Provider, Other Provider ActiveStart: August 15, 2023 End: August 23, 2023Hepriya Arriaga APRN ACNP-BCOther ProviderActiveStart: August 15, 2023 End: August 23, 2023Fabio Camacho MDOther ProviderActiveStart: August 15, 2023 End: August 22galina Garrett MDOther ProviderActiveStart: August 15, 2023 End: August 23, 2023Mohamshannan Mccarthy MDOther ProviderActiveStart: August 15, 2023 End: August 23, 2023Sebastian Flores DOOther ProviderActiveStart: August 15, 2023 End: August 23, 2023Saige Jolley MDOther ProviderActiveStart: August 15, 2023 End: August 23, 2023John Beyer MDOther ProviderActiveStart: August 15, 2023 End: August 22abby Meza MDOther ProviderActiveStart: August 15, 2023 End: August 22rio Han DOOther ProviderActiveStart: August 15, 2023 End: August 23, 2023Fabiola Fernandes DOOther ProviderActiveStart: August 15, 2023 End: August 22samuel Varner MDOther ProviderActiveStart: August 15, 2023 End: August 23, 2023Sury Winkler MDOther ProviderActiveStart: August 15, 2023 End: August 23, 2023Chyna Molina 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 PRINTING PAPER-COther ProviderActiveStart: August 15, 2023 End: August 22Ahsan Hook Provider, Other ProviderActive Start: August 15, 2023 End: August 23, 2023José Miguel Willingham MDOther ProviderActiveStart: August 15, 2023 End: August 23, 2023El Charles MDOther ProviderActiveStart: August 15, 2023 End: August 22corin Hammer MDOther ProviderActiveStart: August 15, 2023 End: August 23, 2023Tika Rochather ProviderActiveStart: August 15, 2023 End: August 23, 2023Debibe Dennis , DOOther ProviderActiveStart: August 15, 2023 End: August 23, 2023Strenae Lackey MDOther ProviderActiveStart: August 15, 2023 End: August 22galina Cordon DOOther ProviderActiveStart: August 15, 2023 End: August 23, 2023FeFLOWER Gann-BCOther ProviderActiveStart: August 15, 2023 End: August 22abby Rivers DOOther ProviderActiveStart: August 15, 2023 End: August 22jacky Kamara , APRNOther ProviderActiveStart: August 15, 2023 End: August 22lauren Casey 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 PRINTING PAPER-COther ProviderActiveStart: August 15, 2023 End: August 23, 2023Nikki Holm APRN-FNP-COther ProviderActiveStart: August 15, 2023 End: August 22enisela Britt , DOOther ProviderActiveStart: August 15, 2023 End: August 23, 2023Rohan Han DPMOther ProviderActiveStart: August 15, 2023 End: August 23, 2023 Team Status: Active Member Role Status Dates Tejas Stevens MD Primary Care Provider Active S tart: August 16, 2023 End: August 23, 2023Geo Thomas , DOAdmit Provider, Other Provider ActiveStart: August 16, 2023 End: August 23, 2023HeLELAND HelmP-BCOther ProviderActiveStart: August 16, 2023 End: August 23, 2023Fabio Camacho MDOther ProviderActiveStart: August 16, 2023 End: August 22galina Garrett MDOther ProviderActiveStart: August 16, 2023 End: August 23, 2023Mohamshannan Mccarthy MDOther ProviderActiveStart: August 16, 2023 End: August 23, 2023Sebastian Flores DOOther ProviderActiveStart: August 16, 2023 End: August 23, 2023Saige Jolley MDOther ProviderActiveStart: August 16, 2023 End: August 23, 2023John Byeer MDOther ProviderActiveStart: August 16, 2023 End: August 22abby Meza MDOther ProviderActiveStart: August 16, 2023 End: August 22rio Han DOOther ProviderActiveStart: August 16, 2023 End: August 23, 2023Fabiola Fernandes DOOther ProviderActiveStart: August 16, 2023 End: August 22asefranco Varner MDOther ProviderActiveStart: August 16, 2023 End: August 23, 2023Sury Winkler MDOther ProviderActiveStart: August 16, 2023 End: August 23, 2023Chyna Molina NP-COther ProviderActiveStart: August 16, 2023 End: August 22wilmar Kay MDOther ProviderActiveStart: August 16, 2023 End: August 23, 2023José Miguel Willingham MDOther ProviderActiveStart: August 16, 2023 End: August 23, 2023Suseble Charles MDOther ProviderActiveStart: August 16, 2023 End: August 22corin Hammer MDOther ProviderActiveStart: August 16, 2023 End: August 23, 2023Katherine SciarappaOther ProviderActiveStart: August 16, 2023 End: August 23, 2023Debbie Dennis DOOther ProviderActiveStart: August 16, 2023 End: August 23, 2023Strenae Lackey MDOther ProviderActiveStart: August 16, 2023 End: August 22galina Cordon DOOther ProviderActiveStart: August 16, 2023 End: August 23, 2023Sindy Grimes ANP-BCOther ProviderActiveStart: August 16, 2023 End: August 22abby Rivers , DOOther ProviderActiveStart: August 16, 2023 End: August 22jacky Kamara , APRNOther ProviderActiveStart: August 16, 2023 End: August 22lauren Casey 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 PRINTING PAPER-COther ProviderActiveStart: August 16, 2023 End: August 23, 2023Nikki Holm APRN-FNP-COther ProviderActiveStart: August 16, 2023 End: August 22enisela Britt , DOOther ProviderActiveStart: August 16, 2023 End: August 23, 2023Rohan Han DPMOther ProviderActiveStart: August 16, 2023 End: August 23, 2023Morales Dasilva MDAttending ProviderActive Start: August 16, 2023 End: August 23, 2023 Team Status: Active Member Role Status Dates Tejas Stevens MD Primary Care Provider Active S tart: August 17, 2023 End: August 23, 2023Geo Thomas DOAdmit Provider, Other Provider ActiveStart: August 17, 2023 End: August 23, 2023Megha Arriaga APRN ACNP-BCOther ProviderActiveStart: August 17, 2023 End: August 23, 2023Bianca Gu ProviderActiveStart: August 17, 2023 End: August 22galina Garrett MDOther ProviderActiveStart: August 17, 2023 End: August 23, 2023Mosilvano Mccarthy MDOther ProviderActiveStart: August 17, 2023 End: August 23, 2023Sebastian Flores DOOther ProviderActiveStart: August 17, 2023 End: August 23, 2023Bianca Nobles ProviderActiveStart: August 17, 2023 End: August 23, 2023Bianca Funes ProviderActiveStart: August 17, 2023 End: August 22abby Meza MDOther ProviderActiveStart: August 17, 2023 End: August 22rio Han DOOther ProviderActiveStart: August 17, 2023 End: August 23, 2023Fabiola Fernandes DOOther ProviderActiveStart: August 17, 2023 End: August 22asefranco Varner MDOther ProviderActiveStart: August 17, 2023 End: August 23, 2023Bianca Wong ProviderActiveStart: August 17, 2023 End: August 23, 2023Geovany Marcher ProviderActiveStart: August 17, 2023 End: August 22Bianca Hook ProviderActiveStart: August 17, 2023 End: August 23, 2023GiBianca Blandon ProviderActiveStart: August 17, 2023 End: August 23, 2023SuBianca Hernandez ProviderActiveStart: August 17, 2023 End: August 22Bianca Alexandre ProviderActiveStart: August 17, 2023 End: August 23, 2023Katkaushal Rochather ProviderActiveStart: August 17, 2023 End: August 23, 2023Tyra Carrera ProviderActiveStart: August 17, 2023 End: August 23, 2023StBianca Neal ProviderActiveStart: August 17, 2023 End: August 22galina Cordon DOOther ProviderActiveStart: August 17, 2023 End: August 23, 2023Felicia Windnagel , ANP-BCOther ProviderActiveStart: August 17, 2023 End: August 22abby Rivers DOOther ProviderActiveStart: August 17, 2023 End: August 22jacky Kamara , APRNOther ProviderActiveStart: August 17, 2023 End: August 22lauren Casey , 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 PRINTING PAPER-COther ProviderActiveStart: August 17, 2023 End: August 23, 2023Nikki Holm APRN-FNP-COther ProviderActiveStart: August 17, 2023 End: August 22enisela Britt , DOOther ProviderActiveStart: August 17, 2023 End: August 23, 2023Rohan Han DPMOther ProviderActiveStart: August 17, 2023 End: August 23, 2023Micboni Ramírez MDAttending Provider, Other ProviderActive Start: August 17, 2023 End: August 23, 2023 Team Status: Active Member Role Status Dates Tejas Stevens MD Primary Care Provider Active S tart: August 22, 2023 End: August 23, 2023Krlaura Thomas DOAdmit ProviderActiveStart: August 22, 2023 End: August 23, 2023Megha Arriaga APRN ACNP-BCOther ProviderActiveStart: August 22, 2023 End: August 23, 2023Fabio Camacho MDOther ProviderActiveStart: August 22, 2023 End: August 22galina Garrett MDOther ProviderActiveStart: August 22, 2023 End: August 23, 2023Mosilvano Mccarthy MDOther ProviderActiveStart: August 22, 2023 End: August 23, 2023Sebastian Flores DOOther ProviderActiveStart: August 22, 2023 End: August 23, 2023Saige Jolley MDOther ProviderActiveStart: August 22, 2023 End: August 23, 2023John Beyer MDOther ProviderActiveStart: August 22, 2023 End: August 22abby Meza MDOther ProviderActiveStart: August 22, 2023 End: August 22rio Han , DOOther ProviderActiveStart: August 22, 2023 End: August 23, 2023Fabiola Fernandes , DOOther ProviderActiveStart: August 22, 2023 End: August 22Bianca Banks ProviderActiveStart: August 22, 2023 End: August 23, 2023Essbernarda Winkler , MDAttending Provider, Other ProviderActive Start: August 22, 2023 End: August 23, 2023Chyna Molina , 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 PRINTING PAPER-COther ProviderActiveStart: August 22, 2023 End: August 22Bianca Hook ProviderActiveStart: August 22, 2023 End: August 23, 2023GiBianca Blandon ProviderActiveStart: August 22, 2023 End: August 23, 2023SuBainca Hernandez ProviderActiveStart: August 22, 2023 End: August 22Bianca Alexandre ProviderActiveStart: August 22, 2023 End: August 23, 2023Katkaushal Rochather ProviderActiveStart: August 22, 2023 End: August 23, 2023Tyra Carrera ProviderActiveStart: August 22, 2023 End: August 23, 2023Strenae Lackey MDOther ProviderActiveStart: August 22, 2023 End: August 22galina Cordon DOOther ProviderActiveStart: August 22, 2023 End: August 23, 2023FeFLOWER Gann-BCOther ProviderActiveStart: August 22, 2023 End: August 22abby Rivers DOOther ProviderActiveStart: August 22, 2023 End: August 22jacky Kamara APRNOther ProviderActiveStart: August 22, 2023 End: August 22lauren Casey 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 PRINTING PAPER-COther ProviderActiveStart: August 22, 2023 End: August 23, 2023Nikki Holm APRN-FNP-COther ProviderActiveStart: August 22, 2023 End: August 22enisela Britt , DOOther ProviderActiveStart: August 22, 2023 End: August 23, 2023STEVIE ButlerMOther ProviderActiveStart: August 22, 2023 End: August 23, 2023Micboni Ramírez MDOther ProviderActiveStart: August 22, 2023 End: August 23, 2023Arnaldo Thomas MDOther ProviderActiveStart: August 22, 2023 End: August 23, 2023 Team Status: Active Member Role Status Dates Tejas Stevens MD Primary Care Provider Active S tart: August 22, 2023 End: August 23, 2023Geo Thomas DOAdmit ProviderActiveStart: August 22, 2023 End: August 23, 2023Hepriya Arriaga APRN ACNP-BCOther ProviderActiveStart: August 22, 2023 End: August 23, 2023Fabio Camacho MDOther ProviderActiveStart: August 22, 2023 End: August 22galina Garrett MDOther ProviderActiveStart: August 22, 2023 End: August 23, 2023Mohamshannan Mccarthy MDOther ProviderActiveStart: August 22, 2023 End: August 23, 2023Sebastian Flores DOOther ProviderActiveStart: August 22, 2023 End: August 23, 2023Saige Jolley MDOther ProviderActiveStart: August 22, 2023 End: August 23, 2023John Beyer MDOther ProviderActiveStart: August 22, 2023 End: August 22abby Meza MDOther ProviderActiveStart: August 22, 2023 End: August 22rio Han DOOther ProviderActiveStart: August 22, 2023 End: August 23, 2023Fabiola Fernandes DOOther ProviderActiveStart: August 22, 2023 End: August 22samuel Varner MDOther ProviderActiveStart: August 22, 2023 End: August 23, 2023Bianca Wong ProviderActiveStart: August 22, 2023 End: August 23, 2023Chyna Molina NP-COther ProviderActiveStart: August 22, 2023 End: August 22Bianca Hook ProviderActiveStart: August 22, 2023 End: August 23, 2023José Miguel Willingham MDOther ProviderActiveStart: August 22, 2023 End: August 23, 2023SuBianca Hernandez ProviderActiveStart: August 22, 2023 End: August 22corin Hammer MDOther ProviderActiveStart: August 22, 2023 End: August 23, 2023Tika Rochather ProviderActiveStart: August 22, 2023 End: August 23, 2023Debbie Dennis DOOther ProviderActiveStart: August 22, 2023 End: August 23, 2023Strenae Lackey MDOther ProviderActiveStart: August 22, 2023 End: August 22galina Cordon DOOther ProviderActiveStart: August 22, 2023 End: August 23, 2023FeFLOWER Gann-BCOther ProviderActiveStart: August 22, 2023 End: August 22abby Rivers DOOther ProviderActiveStart: August 22, 2023 End: August 22jacky Kamara APRNOther ProviderActiveStart: August 22, 2023 End: August 22lauren Casey NP-COther ProviderActiveStart: August 22, 2023 End: August 23, 2023Sajose Holm APRN-FNP-COther ProviderActiveStart: August 22, 2023 End: August 22enisela Britt , DOOther ProviderActiveStart: August 22, 2023 End: August 23, 2023STEVIE ButlerMOther ProviderActiveStart: August 22, 2023 End: August 23, 2023Michael Ramírez MDOther ProviderActiveStart: August 22, 2023 End: August 23, 2023Anai Vazquezending Provider, Other ProviderActive Start: August 22, 2023 End: August 23, 2023 Team Status: Active Member Role Status Dates Tejas Stevens MD Primary Care Provider Active S tart: August 23, 2023 End: August 23, 2023Geo Thomas , DOAdmit ProviderActiveStart: August 23, 2023 End: August 23, 2023Hepriya Arriaga APRN ACNP-BCOther ProviderActiveStart: August 23, 2023 End: August 23, 2023Fabio Camacho MDOther ProviderActiveStart: August 23, 2023 End: August 22galina Garrett MDOther ProviderActiveStart: August 23, 2023 End: August 23, 2023Mohamed Enoc Mccarthy MDOther ProviderActiveStart: August 23, 2023 End: August 23, 2023Sebastian Flores DOOther ProviderActiveStart: August 23, 2023 End: August 23, 2023Saige Jolley MDOther ProviderActiveStart: August 23, 2023 End: August 23, 2023John Beyer MDOther ProviderActiveStart: August 23, 2023 End: August 22abby Meza MDOther ProviderActiveStart: August 23, 2023 End: August 22rio Han DOOther ProviderActiveStart: August 23, 2023 End: August 23, 2023Fabiola Fernandes DOOther ProviderActiveStart: August 23, 2023 End: August 22samuel Varner MDOther ProviderActiveStart: August 23, 2023 End: August 23, 2023Sury Winkler MDOther ProviderActiveStart: August 23, 2023 End: August 23, 2023Geovany Marcher ProviderActiveStart: August 23, 2023 End: August 22wilmar Kay MDOther ProviderActiveStart: August 23, 2023 End: August 23, 2023José Miguel Willingham MDOther ProviderActiveStart: August 23, 2023 End: August 23, 2023Suseble Charles MDOther ProviderActiveStart: August 23, 2023 End: August 22corin Hammer MDOther ProviderActiveStart: August 23, 2023 End: August 23, 2023Tika FarooqaOther ProviderActiveStart: August 23, 2023 End: August 23, 2023Debbie Dennis DOOther ProviderActiveStart: August 23, 2023 End: August 23, 2023Strenae Lackey MDOther ProviderActiveStart: August 23, 2023 End: August 22galina Cordon DOOther ProviderActiveStart: August 23, 2023 End: August 23, 2023FeFLOWER Gann-BCOther ProviderActiveStart: August 23, 2023 End: August 22abby Rivers DOOther ProviderActiveStart: August 23, 2023 End: August 22jacky Kamara , APRNOther ProviderActiveStart: August 23, 2023 End: August 22lauren Casey 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 PRINTING PAPER-COther ProviderActiveStart: August 23, 2023 End: August 23, 2023Nikki Holm APRN-FNP-COther ProviderActiveStart: August 23, 2023 End: August 22enisela Britt , DOOther ProviderActiveStart: August 23, 2023 End: August 23, 2023GLADIS Butlerther ProviderActiveStart: August 23, 2023 End: August 23, 2023Michael Ramírez MDOther ProviderActiveStart: August 23, 2023 End: August 23, 2023Bianca Vazquez ProviderActiveStart: August 23, 2023 End: August 22Ahsan Marinelli ProviderActiveStart: August 23, 2023 End: August 23, 2023 Team Status: Inactive Member Role Status Dates Tejas Stevens MD Primary Care Provider Active S tart: September 29, 2023 End: September 29, 2023Tondra K Mapus , APRNAttending ProviderActiveStart: September 29, 2023 End: September 29, 2023 Team Status: Inactive Member Role Status Dates Tejas Stevens MD Primary Care Provider Active S tart: October 21, 2023 End: October 20corin Hammer MDAttending ProviderActiveStart: October 21, 2023 End: October 21, 2023 Team Status: Inactive Member Role Status Dates Tejas Stevens MD Primary Care Provider Active S tart: November 04, 2023 End: November 03galina Garrett MDAttending ProviderActiveStart: November 04, 2023 End: November 04, 2023 Team Status: Active Member Role Status Dates Tejas Stevens MD Primary Care Provider Active S tart: December 23, 2023 Sanket Hammer MDAttending ProviderActiveStart: December 23, 2023 Team Status: Inactive Member Role Status Dates Tejas Stevens MD Primary Care Provider Active S tart: January 05, 2024 End: January 05, 2024Louise Sotelo , ANDRENAttennikki ProviderActiveStart: January 05, 2024 End: January 05, 2024 Team Status: Inactive Member Role Status Dates Tejas Stevens MD Primary Care Provider Active S tart: January 06, 2024 End: January 05corin Hammer MDAttending ProviderActiveStart: January 06, 2024 End: January 06, 2024Team MemberRelationshipSpecialtyStart DateEnd Date Tejas Stevens MD [address] [place] [address] PCP - [facility]05/26/23 Tejas Stevens MD [address] [place] [address] [facility]08/14/23Team MemberRelationshipSpecialtyStart DateEnd Date Tejas Stevens MD [address] [place] [address] PCP - [facility]05/26/23 Tejas Stevens MD [address] [place] [address] [facility]/23Team MemberRelationshipSpecialtyStart DateEnd Date Tejas Stevens MD [address] [place] [address] PCP - [facility]05/26/23 Tejas Stevens MD [address] [place] [address] PCP - [facility] Medicine08/14/23Team MemberRelationshipSpecialtyStart DateEnd Date Tejas Stevens MD [address] [place] [address] PCP - [facility]05/26/23 Tejas Stevens MD [address] [place] [address] PCP - [facility] Medicine08/14/23Team MemberRelationshipSpecialtyStart DateEnd Date Tejas Stevens MD [address] [place] [address] PCP - [facility]05/26/23 Tejas Stevens MD [address] [place] [address] PCP - [facility] Medicine08/14/23Team MemberRelationshipSpecialtyStart DateEnd Date Tejas Stevens MD [address] [place] [address] PCP - [facility]05/26/23 Tejas Stevens MD [address] [place] [address] PCP - [facility] Medicine08/14/23Team MemberRelationshipSpecialtyStart DateEnd Date Tejas Stevens MD [address] [place] [address] PCP - [facility]05/26/23 Tejas Stevens MD [address] [place] [address] PCP - [facility]08/14/23Team MemberRelationshipSpecialtyStart DateEnd Date Tejas Stevens MD [address] [place] [address] PCP - [facility]05/26/23 Tejas Stevens MD [address] [place] [address] PCP - [facility]08/14/23Team MemberRelationshipSpecialtyStart DateEnd Date Tejas Stevens MD [address] [place] [address] PCP - [facility]05/26/23 Tejas Stevens MD [address] [place] [address] [facility]/14/23Team MemberRelationshipSpecialtyStart DateEnd Date Tejas Stevens MD [address] [facility] [place] [address] [facility] Team Status: Active Member Role Status Dates Tejas Stevens MD Primary Care Provider Active S tart: April 14, 2024 Sanket Hammer MDAttending ProviderActiveStart: April 14, 2024 Team Status: Inactive Member Role Status Dates Tejas Stevens MD Primary Care Provider Active S tart: April 19, 2024 End: April 19, 2024Louise Sotelo , APRNAttending ProviderActiveStart: April 19, 2024 End: April 19, 2024 Team Status: Active Member Role Status Dates Tejas Stevens MD Primary Care Provider Active S tart: May 03, 2024 Olga Melgoza CMAAttending ProviderActiveStart: May 03, 2024 Team Status: Active Member Role Status Dates Tejas Stevens MD Primary Care Provider Active S tart: May 31, 2024 Sanket Hammer MDAttending ProviderActiveStart: May 31, 2024 Team Status: Active Member Role Status Dates Tejas Stevens MD Primary Care Provider Active S tart: June 01, 2024 Sanket Hammer MDAttending ProviderActiveStart: June 01, 2024 Team MemberRelationshipSpecialtyStart DateEnd Date Tejas Stevens MD [address] [place] [address] PCP - [facility]07/12/19Team MemberRelationshipSpecialtyStart DateEnd Date Tejas Stevens MD [address] [place] [address] PCP - GeneralFamily Medicine07/12/19Team MemberRelationshipSpecialtyStart DateEnd Date Tejas Stevens MD [address] [place] [address] PCP - GeneralFamily Medicine07/12/19Team MemberRelationshipSpecialtyStart DateEnd Date Tejas Stevens MD [facility]CP - [facility]07/12/19Team MemberRelationshipSpecialtyStart DateEnd Date Tejas Stevens MD [facility]CP - [facility]07/12/19Team MemberRelationshipSpecialtyStart DateEnd Date Tejas Stevens MD [address] [place] [address] [facility] - [facility]08/14/23Team MemberRelationshipSpecialtyStart DateEnd Date Tejas Stevens MD [address] [place] [address] [facility] - [facility]08/14/23Team MemberRelationshipSpecialtyStart DateEnd Date Tejas Stevens MD [address] [place] [address] [facility] - [facility]08/14/23 Team Status: Inactive Member Role Status Dates Tejas Stevens MD Primary Care Provider Active S tart: September 28, 2024 End: September 28, 2024Dhruv Bautista MDAttsunshine ProviderActiveStart: September 28, 2024 End: September 28, 2024Team MemberRelationshipSpecialtyStart DateEnd Date Tejas Stevens MD [address] [place] [address] PCP - GeneralFamily Medicine08/14/23Team MemberRelationshipSpecialtyStart DateEnd Date Tejas Stevens MD [address] [place] [address] PCP - GeneralFamily Medicine08/14/23Team MemberRelationshipSpecialtyStart DateEnd Date Tejas Stevens MD [address] [place] [address] PCP - GeneralFamily Medicine08/14/23Team MemberRelationshipSpecialtyStart DateEnd Date Tejas Stevens MD [address] [place] [address] PCP - GeneralFamily Medicine08/14/23Team MemberRelationshipSpecialtyStart DateEnd Date Tejas Stevens MD PCP - GeneralFamily Medicine07/12/19Team MemberRelationshipSpecialtyStart DateEnd Date Tejas Stevens MD [address] [place] [address] PCP - GeneralFamily Medicine08/14/23Team MemberRelationshipSpecialtyStart DateEnd Date Tejas Stevens MD [address] [place] [address] PCP - GeneralFamily Medicine08/14/23Team MemberRelationshipSpecialtyStart DateEnd Date Tejas Stevens MD [address] [place] [address] [facility]CP - [facility]08/14/23Team MemberRelationshipSpecialtyStart DateEnd Date Tejas Stevens MD [address] [place] [address] [facility] - [facility]/14/23Team MemberRelationshipSpecialtyStart DateEnd Date Tejas Stevens MD PCP - [facility]07/12/19 Team Status: Inactive Member Role Status Dates Tejas Stevens MD Primary Care Provider Active S tart: January 19, 2025 End: January 19Ahsan Alexandre ProviderActiveStart: January 19, 2025 End: January 19, 2025 Team Status: Inactive Member Role Status Dates Tejas Stevens MD Primary Care Provider Active S tart: February 01, 2025 End: February 01, 2025Ahsan Alicea ProviderActiveStart: February 01, 2025 End: February 01, 2025Team MemberRelationshipSpecialtyStart DateEnd Date Tejas Stevens MD [address] [place] [address] [facility]/14/23Team MemberRelationshipSpecialtyStart DateEnd Date Tejas Stevens MD [address] [place] [address] [facility] - [facility]08/14/23 Team Status: Active Member Role/Relationship Status Dates Tejas Stevens MD Primary Care Provider Active Team Status: Active Member Role/Relationship Status Dates Tejas Stevens MD Primary Care Provider Active S tart: December 30, 2024 Anai Redending ProviderActiveStart: December 30, 2024 Team Status: Inactive Member Role/Relationship Status Dates Tejas Stevens MD Primary Care Provider Active S tart: January 13, 2025 End: January 13, 2025Louise Sotelo APRNAttennikki ProviderActiveStart: January 13, 2025 End: January 13, 2025 Team Status: Inactive Member Role/Relationship Status Dates Tejas Stevens MD Primary Care Provider Active S tart: January 19, 2025 End: January 19Anai Alexandreending ProviderActiveStart: January 19, 2025 End: January 19, 2025 Team Status: Inactive Member Role/Relationship Status Dates Tejas Stevens MD Primary Care Provider Active S tart: February 01, 2025 End: February 01, 2025Ahsan Alicea ProviderActiveStart: February 01, 2025 End: February 01, 2025 Team Status: Inactive Member Role/Relationship Status Dates Tejas Stevens MD Primary Care Provider Active S tart: March 11, 2025 End: March 11Neptali Haney ProviderActiveStart: March 11, 2025 End: March 11, 2025Team MemberRelationshipSpecialtyStart DateEnd Date Tejas Stevens MD [address] [place] [address] PCP - [facility]05/26/2411 Tejas Stevens MD [address] [place] [address] PCP - [facility] Medicine08/14/23Team MemberRelationshipSpecialtyStart DateEnd Date Tejas Stevens MD [address] [place] [address] PCP - [facility]05/26/2411 Tejas Stevens MD [address] [place] [address] PCP - [facility]08/14/23Team MemberRelationshipSpecialtyStart DateEnd Date Tejas Stevens MD [address] [place] [address] PCP - [facility]05/26/2411 Tejas Stevens MD [address] [place] [address] PCP - [facility]08/14/23 Team Status: Inactive Member Role/Relationship Status Dates Tejas Stevens MD Primary Care Provider Active S tart: March 29, 2025 End: March 29, 2025Mar CHRISTOPH Stevensttending ProviderActiveStart: March 29, 2025 End: March 29, 2025 Goals (unrecognized section and content) Goals may [...] BE BASED ON THE PRIMARY CLINICAL RECORDS. [employer] [facility]. provides no warranty or guarantee of the accuracy or completeness of information in this document.
[2025-04-12 15:24] LABS: Protein Creatinine Ratio Urine 0.49; Total Protein Urine Random 109.7 mg/dL (<=11.9)
[2025-04-12 15:30] LABS: Hematocrit 29.7 % (42.0-54.0); Hemoglobin 9.9 g/dL (14.0-18.0); Mean Corpuscular HGB Conc 33.3 g/dL (29.9-35.2); Mean Corpuscular Hemoglobin 30.4 pg (25.9-34.0); Mean Corpuscular Volume 91.1 fL (80.0-94.0); Platelet Count 374 10^3/uL (150-450); Red Blood Count 3.26 10^6/uL (4.70-6.10); White Blood Count 11.0 10^3/uL (4.0-11.0)
[2025-04-12 15:52] LABS: Iron 40.0 ug/dL (65.0-175.0); Percent Iron Saturation 19.9 %; Total Iron Binding Capacity 201.0 ug/dL (250.0-450.0)
[2025-04-12 16:05] LABS: Albumin Level 3.4 g/dL (3.4-5.0); Anion Gap 12.0; Blood Urea Nitrogen 32.0 mg/dL (7.0-18.0); Calcium 8.6 mg/dL (8.5-10.1); Carbon Dioxide 26.0 mmol/L (21.0-32.0); Chloride 105 mmol/L (98-107); Estimated GFR (African America 40 (>=60 mL/min/1.73m^2); Estimated GFR (Non-African Ame 33 (>=60 mL/min/1.73m^2); Glucose 121 mg/dL (74-106); Magnesium 2.1 mg/dL (1.8-2.4); Potassium 4.0 mmol/L (3.5-5.1); Sodium 139 mmol/L (136-145); Uric Acid 6.2 mg/dL (3.5-7.2)
[2025-04-12 16:17] LABS: Ferritin 459.0 ng/mL (26.0-388.0); Folate 76.80 ng/mL (8.60-58.90)
[2025-04-13 04:07] LABS: Vitamin B12 568 pg/mL (232-1245)
== END 2025-04-12 14:39 | disposition home or self-care (01) ==
LOC: LAB 14:40
PROVIDERS: PCP Family Medicine; Visit Provider Internal Medicine Nephrology
DX: N18.4 Chronic kidney disease, stage 4 (severe) (principal); E87.5 Hyperkalemia; E11.21 Type 2 diabetes mellitus with diabetic nephropathy; D64.9 Anemia, unspecified; E83.39 Other disorders of phosphorus metabolism
CPT/HCPCS: 36415; 80069; 82306; 82570; 82607; 82728; 82746; 83540; 83550; 83735; 83970; 84156; 84550; 85027